=== PATIENT | male | born 1990 | race Caucasian/White ===

== ENCOUNTER 2022-10-12 03:27 | Emergency (ER) | payer OTHER, SELFPAY ==
[2022-10-12 03:32] VITALS: BP 158/104; PULSE 92; RESP 18; TEMP 36.6; O2SAT 96; BMI 31.0
--- NOTE | 2022-10-12 04:03 | ED.EXTPRO1 ---
HPI - Extremity Problem General Chief complaint: Extremity Problem, Nontraumatic Stated complaint: LEG PAIN Time Seen by Provider: 10/12/22 03:41 Source: patient and family Mode of arrival: walk-in Limitations: no limitations History of Present Illness HPI Narrative: This 32-year-old male presents for evaluation of bilateral lower extremity pain. The patient states for at least 4 weeks he has had pain in his posterior calf. He was seen by Dr. Guzman and had an EMG done last week and is scheduled for blood pressure tests in both legs next week. The patient states when his symptoms started he went to see Dr. Guzman and was put on Requip for restless leg syndrome. He states he had stopped taking it because it made him irritable in the morning. He states he does not feel that he has restless leg syndrome because he is able to keep his leg still but has squeezing pain in both posterior calves. He denies any chest pain or shortness of breath. He does state that he had a recent episode of chest pain while driving home from work yesterday. He does smoke cigarettes. He has not had any testosterone or home on replacement therapy. He states that as a child he had Weston-Schlatter's disease as well. He states he has had leg pain ongoing since the 7th grade. At this point he states he has not slept well in 4 weeks due to the discomfort in his legs and everything in his body hurts. Complaint: Reports extremity pain Onset (ago): week(s) (4) Pain Consistency: Reports constant Location: Reports lower extremity Quality: Reports other (squeezing) Radiation: Reports none Relieving factors: Reports nothing Exacerbating factors: Reports walking and rest Associated symptoms: Reports denies other symptoms Related Data Home Medications Medication Instructions Recorded Confirmed No Known Home Medications 10/12/22 10/12/22 Allergies Allergy/AdvReac Type Severity Reaction Status Date / Time naproxen Allergy Unknown Verified 10/12/22 03:36 Review of Systems ROS Status of ROS 10 or more systems reviewed and unremarkable except as noted in history and below PFSH PFS Social History Smoking status: Current every day smoker Exam Constitutional Vital Signs - 24 hr 10/12/22 03:32 Temperature 97.9 F Pulse Rate [Monitor] 92 H Respiratory Rate 18 Blood Pressure [Right Arm] 158/104 H Pulse Oximetry 96 Documenting provider has reviewed patient's vital signs: yes Common normals: no apparent distress (Nontoxic male resting currently on stretcher, no resp distress) and oriented x3 General appearance: cooperative, well kempt and well developed HENMT Common normals: normocephalic, head/scalp atraumatic and hearing grossly normal bilaterally Eye Common normals: PERRL General eye: normal appearance of both eyes Respiratory Common normals: normal respiratory effort, no retractions and clear to auscultation bilaterally Effort & inspection: able to speak in complete sentences Cardio Common normals: regular rate, regular rhythm, S1 normal heart sound, S2 normal heart sound and peripheral pulses 2+ throughout Back & Pelvis Common normals: thoracic and lumbar spine normal to inspection Extremity Common normals: normal to inspection, full ROM, normal capillary refill, no joint enlargement, no clubbing, cyanosis or edema and no calf tenderness (proximal calf tenderness in bilateral legs, No redness, cords ) General: other findings (Calfs are compared side by side and are soft, negative Homans sign) Neuro Common normals: oriented x3 Sensorium/orientation: awake, alert, oriented to person and oriented to place Psych Common normals: mental status grossly normal Course Course Hospital Course: EKG interpretation sinus rhythm at 70 beats for minute, normal axis, normal intervals, RSR in lead V1 and V2, no acute ST segment elevation or T-wave inversion Pt was medicated with 1 norco and 4mg zofran for his pain, blood work including D dimer ordered. Labs are reviewed and are normal. He has a negative d dimer and sed rate He was re-evaluated and states he is able to rest but the norco did not help his pain. I agreed to give him a short course of percocet after reviewing his OARRS report which showedRx for 25, 50mg tramadol on 05/10/22 and no other narcotic Rx Vital Signs Vital signs: Vital Signs Temperature 97.9 F 10/12/22 03:32 Pulse Rate 92 H 10/12/22 03:32 Respiratory Rate 18 10/12/22 03:32 Blood Pressure 158/104 H 10/12/22 03:32 Pulse Oximetry 96 10/12/22 03:32 Temperature 97.9 F 10/12/22 03:32 Pulse Rate 92 H 10/12/22 03:32 Respiratory Rate 18 10/12/22 03:32 Blood Pressure 158/104 H 10/12/22 03:32 Pulse Oximetry 96 10/12/22 03:32 MDM - Extremity (Nontraumatic) Differential Diagnosis Differential diagnosis: Likely deep vein thrombosis of lower extremity Lab Data Attestation: I reviewed the patient's lab results. Labs: Lab Results 10/12/22 10/12/22 Range/Units 04:01 05:15 WBC 6.5 (4.0-11.0) 10^3/uL RBC 4.47 L (4.70-6.10) 10^6/uL Hgb 14.0 (14.0-18.0) g/dL Hct 41.4 L (42.0-54.0) % MCV 92.6 (80.0-94.0) fL MCH 31.3 (25.9-34.0) pg MCHC 33.8 (29.9-35.2) g/dL RDW 11.9 (11.0-15.0) % Plt Count 236 (150-450) 10^3/uL MPV 10.2 (9.5-13.5) fL Neut % (Auto) 56.5 (43.0-75.0) % Lymph % (Auto) 33.1 (20.5-60.0) % [place] % (Auto) 7.4 (1.7-12.0) % Eos % (Auto) 1.9 (0.9-7.0) % Baso % (Auto) 0.8 (0.2-2.0) % Neut # (Auto) 3.7 (1.4-6.5) 10^3/uL Lymph # (Auto) 2.1 (1.2-3.8) 10^3/uL [place] # (Auto) 0.5 (0.3-0.8) 10^3/uL Eos # (Auto) 0.1 (0.0-0.7) 10^3/uL Baso # (Auto) 0.1 (0.0-0.1) 10^3/uL Abs Immat Gran (auto) 0.02 (0.00-0.03) 10^3/uL Imm/Tot Granulo (auto) 0.3 (0.0-0.5) % ESR 4 (<=15) mm/hr D-Dimer <0.19 (<=0.59) mg/L FEU Sodium 140 (136-145) mmol/L Potassium 3.9 (3.5-5.1) mmol/L Chloride 101 (98-107) mmol/L Carbon Dioxide 30.6 (21.0-32.0) mmol/L Anion Gap 12.3 BUN 13.0 (7.0-18.0) mg/dL Creatinine 1.09 (0.70-1.30) mg/dL Est GFR ( Amer) >60 (>=60) Est GFR (Non-Af Amer) >60 (>=60) BUN/Creatinine Ratio 11.9 Glucose 106 (74-106) mg/dL Calcium 10.9 H (8.5-10.1) mg/dL Discharge Plan Discharge Chief Complaint: Extremity Problem, Nontraumatic Clinical Impression: Chronic pain of lower extremity, bilateral Time of Disposition Decision: 06:26 Prescriptions / Home Meds: No Action No Known Home Medications Print Language: Greek Instructions: Chronic Pain (ED) Stand Alone Forms: Portal Instructions Referrals: Jc Guzman MD [Primary Care Provider] - 1 week
--- NOTE | 2022-10-12 04:06 | ECG_ITS ---
[facility] Test Date: 2022-10-12 Pat Name: OLEGARIO DONALD Department: Room: - Gender: Male Cloth Calender: : 1990 Requested By: LATRICIA GARCIA Order Number: [id number] Reading MD: LATRICIA GARCIA Measurements Intervals [place] Rate: 71 P: 60 RI: 164 QRS: 81 QRSD: 102 T: 62 QT: 368 QTc: 390 Interpretive Statements 1100 Sinus rhythm 2420 RSR (QR) in lead V1/V2, consistent with right ventricular conduction delay 9130 borderline ECG No previous ECG available for comparison Electronically Signed On 10-12-2022 6:54:22 EDT by LATRICIA GARCIA
[2022-10-12] MEDS: HYDROCODONE/ACETAMINOPHEN 5-325 MG TABLET 1 TAB PO (04:24)
[2022-10-12] MEDS: ONDANSETRON 4 MG RAPDIS TABLET SL (04:24)
[2022-10-12 05:36] LABS: Basophils Absolute Auto 0.1 10^3/uL (0.0-0.1); Basophils Percent Auto 0.8 % (0.2-2.0); Eosinophils Absolute Auto 0.1 10^3/uL (0.0-0.7); Eosinophils Percent Auto 1.9 % (0.9-7.0); Hematocrit 41.4 % (42.0-54.0); Immature Granulocytes Abs Auto 0.02 10^3/uL (0.00-0.03); Immature Granulocytes Pct Auto 0.3 % (0.0-0.5); Lymphocytes Absolute Auto 2.1 10^3/uL (1.2-3.8); Lymphocytes Percent Auto 33.1 % (20.5-60.0); Mean Corpuscular HGB Conc 33.8 g/dL (29.9-35.2); Mean Corpuscular Hemoglobin 31.3 pg (25.9-34.0); Mean Corpuscular Volume 92.6 fL (80.0-94.0); Mean Platelet Volume 10.2 fL (9.5-13.5); Monocytes Absolute Auto 0.5 10^3/uL (0.3-0.8); Monocytes Percent Auto 7.4 % (1.7-12.0); Neutrophils Absolute Auto 3.7 10^3/uL (1.4-6.5); Neutrophils Percent Auto 56.5 % (43.0-75.0); Platelet Count 236 10^3/uL (150-450); Red Blood Count 4.47 10^6/uL (4.70-6.10); Red Cell Distribution Width 11.9 % (11.0-15.0); White Blood Count 6.5 10^3/uL (4.0-11.0)
[2022-10-12 05:45] LABS: Erythrocyte Sedimentation Rate 4 mm/hr (<=15)
[2022-10-12 05:58] LABS: D Dimer <0.19 mg/L FEU (<=0.59)
[2022-10-12 06:02] LABS: Anion Gap 12.3; BUN Creatinine Ratio 11.9; Calcium 10.9 mg/dL (8.5-10.1); Carbon Dioxide 30.6 mmol/L (21.0-32.0); Chloride 101 mmol/L (98-107); Estimated GFR (African America >60 (>=60); Estimated GFR (Non-African Ame >60 (>=60); Glucose 106 mg/dL (74-106); Potassium 3.9 mmol/L (3.5-5.1); Sodium 140 mmol/L (136-145)
[2022-10-12 06:05] LABS: Troponin I High Sensitivity 4.9 pg/mL (4.0-76.1)
== END 2022-10-12 06:39 | disposition home or self-care (01) ==
PROVIDERS: Emergency Provider Emergency Medicine; PCP Family Medicine
DX: M79.605 Pain in left leg (principal); M79.604 Pain in right leg; G89.29 Other chronic pain; F17.210 Nicotine dependence, cigarettes, uncomplicated
CPT/HCPCS: 36415; 80048; 84484; 85025; 85378; 85652; 93005; 99284

== ENCOUNTER 2022-10-17 10:17 | Outpatient (OUT) | payer OTHER, SELFPAY ==
--- NOTE | 2022-10-17 | VEIN_ITS ---
Patient: OLEGARIO DONALD Exam Date: 10/17/2022 : 1990 Gender:M Ordering : DR Jc Guzman . Admission #: [id number] Family : Order #: [id number] CLICK HERE TO VIEW EXAM RADIOLOGY REPORT PROCEDURE: VC EXT VENOUS REFLUX APOORVA LMTD COMPARISON: None. INDICATIONS: Pain due to varicose veins of bilateral legs I83.813 TECHNIQUE: Duplex imaging of the lower extremity to assess the deep and superficial venous system for the presence of deep or superficial venous incompetence and to document the location and severity of disease. The study includes evaluation of the great saphenous vein (GSV), anterior accessory saphenous vein (AASV) and small saphenous vein (SSV). Patient scanned in reverse Trendelenburg and standing. FINDINGS: RIGHT LOWER EXTREMITY: Saphenofemoral Junction Reflux: Yes 9.2mm 0.5 sec GSV: Diam (mm) Reflux/ Time (sec) Proximal Thigh 6.4 Yes 0.4 Mid Thigh 2.6 Yes 0.3 Distal Thigh 3.3 No Prox Calf 2.3 Yes 0.5 Mid Calf 3.2 Yes 0.4 Saphenopopliteal Junction Reflux: 4.1mm Yes 0.2 SSV: Proximal Calf 4.0 No Mid Calf 3.9 Yes 2.4 AASV: Proximal Thigh 3.5 No Mid Thigh 2.2 No Distal Thigh Thrombi: No acute or chronic thrombus. Compressibility: Normal. Flow: Mild deep venous reflux. Preforator: Dist medial lower leg 2.8 mm with 4.8s reflux. Mid post calf 2.4 mm with 2.5s reflux. Tech Note: Patent varicose vein medial knee measures 1.9 mm without reflux. LEFT LOWER EXTREMITY: Saphenofemoral Junction Reflux: 7.0 mm 0.6 sec GSV: Diam (mm) Reflux/Time (sec) Proximal Thigh 4.2 No Mid Thigh 2.3 Yes 0.5 Distal Thigh 2.2 Yes 0.3 Prox Calf 4.8 No Mid Calf 3.3 Yes 0.2 Saphenopopliteal Junction Relux: 2.9 mm Yes 0.8 SSV: Proximal Calf 3.8 Yes 0.3 Mid Calf 3.5 Yes 0.6 AASV: Proximal Thigh 4.9 No Mid Thigh 2.7 Yes 0.5 Distal Thigh Thrombi: No acute or chronic thrombus. Compressibility: Normal. Flow: Mild deep venous reflux. Travel [place]: Dist medial lower leg 2.5 mm without reflux. Mid medial lower leg 2.8 mm with 2.4s reflux. Tech Note: Incompetent varicose vein distal medial lower leg measures 3.4 mm with 0.2s reflux. Mid medial lower leg varicosity measures 2.7 mm with 0.2s reflux. CONCLUSION: 1. Minimal bilateral great saphenous vein venous insufficiency without significant dilatation 2. Moderate right small saphenous vein and minimal left small saphenous vein venous insufficiency 3. Minimal left leg incompetent varicose veins Dictated by: Fei Latham MD on 10/17/2022 at 11:57 Approved by: Fei Latham MD on 10/17/2022 at 11:58
== END 2022-10-17 10:18 ==
PROVIDERS: PCP Family Medicine; Visit Provider Family Medicine
DX: R60.0 Localized edema (principal)
CPT/HCPCS: 93970

== ENCOUNTER 2022-10-19 11:28 | Outpatient (OUT) | payer OTHER, SELFPAY ==
[2022-10-19 11:52] LABS: Basophils Absolute Auto 0.1 10^3/uL (0.0-0.1); Basophils Percent Auto 0.8 % (0.2-2.0); Eosinophils Absolute Auto 0.1 10^3/uL (0.0-0.7); Eosinophils Percent Auto 1.9 % (0.9-7.0); Hematocrit 47.2 % (42.0-54.0); Immature Granulocytes Abs Auto 0.02 10^3/uL (0.00-0.03); Immature Granulocytes Pct Auto 0.3 % (0.0-0.5); Lymphocytes Absolute Auto 1.6 10^3/uL (1.2-3.8); Lymphocytes Percent Auto 21.4 % (20.5-60.0); Mean Corpuscular HGB Conc 33.9 g/dL (29.9-35.2); Mean Corpuscular Hemoglobin 31.3 pg (25.9-34.0); Mean Corpuscular Volume 92.2 fL (80.0-94.0); Mean Platelet Volume 10.1 fL (9.5-13.5); Monocytes Absolute Auto 0.5 10^3/uL (0.3-0.8); Monocytes Percent Auto 7.2 % (1.7-12.0); Neutrophils Percent Auto 68.4 % (43.0-75.0); Platelet Count 260 10^3/uL (150-450); Red Blood Count 5.12 10^6/uL (4.70-6.10); Red Cell Distribution Width 12.4 % (11.0-15.0); White Blood Count 7.3 10^3/uL (4.0-11.0)
[2022-10-19 12:28] LABS: Erythrocyte Sedimentation Rate 11 mm/hr (<=15)
[2022-10-19 13:16] LABS: Alanine Aminotransferase 31 U/L (16-63); Albumin Globulin Ratio 1.1; Alkaline Phosphatase 81 U/L (46-116); Anion Gap 11.1; Aspartate Amino Transferase 13 U/L (15-37); BUN Creatinine Ratio 9.2; Bilirubin Total 0.4 mg/dL (0.2-1.0); Calcium 9.5 mg/dL (8.5-10.1); Carbon Dioxide 28.1 mmol/L (21.0-32.0); Chloride 103 mmol/L (98-107); Estimated GFR (African America >60 (>=60); Estimated GFR (Non-African Ame >60 (>=60); Globulin 3.6 g/dL; Glucose 94 mg/dL (74-106); Potassium 4.2 mmol/L (3.5-5.1); Sodium 138 mmol/L (136-145); Total Protein 7.6 g/dL (6.4-8.2)
[2022-10-19 13:24] LABS: C Reactive Protein <0.2 mg/dL (<=1.0)
[2022-10-20 06:08] LABS: Antistreptolysin O Ab <20.0 IU/mL (0.0-200.0); Rheumatoid Factor (RF) <10.0 IU/mL (<14.0)
[2022-10-21 07:13] LABS: Antinuclear Antibodies, IFA Negative (.)
== END 2022-10-19 11:29 ==
LOC: LAB 11:30
PROVIDERS: PCP Family Medicine; Visit Provider Family Medicine
DX: I87.2 Venous insufficiency (chronic) (peripheral) (principal); M79.606 Pain in leg, unspecified
CPT/HCPCS: 36415; 80053; 84550; 85025; 85652; 86038; 86060; 86140; 86430

== ENCOUNTER 2022-10-21 14:13 | Outpatient (OUT) | payer OTHER, SELFPAY ==
--- NOTE | 2022-10-21 14:14 | US_ITS ---
[place] [id number] Patient Name: OLEGARIO DONALD MRN: [id number] date: 1990 Sex: M Assigned Patient Location: US Current Patient Location: US Accession/Order Number: [id number] Exam Date: 10/21/2022 14:45 Report Date: 10/23/2022 07:45 At the request of: LATRICIA GARCIA Procedure: US arterial duplex LE BI EXAMINATION: US arterial duplex LE BI HISTORY: Venous insufficiency I87.2, Leg pain M79.806 COMPARISON: No relevant comparison available. TECHNIQUE: Color duplex Doppler ultrasound evaluation analysis was performed in the usual manner. FINDINGS: RIGHT LOWER EXTREMITY ARTERIAL No atherosclerosis External Iliac PSV: 111.9 cm/s External Iliac EDV: 2.8 cm/s Common Femoral PSV: 77.9 cm/s Common Femoral EDV: 4.4 cm/s Superficial Femoral Proximal PSV: 80.1 cm/s Proximal EDV: 7.9 cm/s Mid PSV: 78.8 cm/s Mid EDV: 6.6 cm/s Distal PSV: 56.8 cm/s Distal EDV: 5.3 cm/s Popliteal Proximal PSV: 71.0 cm/s Popliteal Proximal EDV: 4.0 cm/s Posterior Tibial Proximal PSV: 72.4 cm/s Proximal EDV: 0.0 cm/s Mid PSV: 54.9 cm/s Mid EDV: 0.0 cm/s Distal PSV: 72.3 cm/s Distal EDV: 5.3 cm/s Anterior Tibial Proximal PSV: 52.6 cm/s Proximal EDV: 4.5 cm/s Mid PSV: 50.4 cm/s Mid EDV: 3.4 cm/s Distal PSV: 53.7 cm/s Distal EDV: 6.7 cm/s LEFT LOWER EXTREMITY ARTERIAL No atherosclerosis External Iliac PSV: 98.4 cm/s External Iliac EDV: 8.1 cm/s Common Femoral PSV: 88.5 cm/s Common Femoral EDV: 0.0 cm/s Superficial Femoral Proximal PSV: 89.2 cm/s Proximal EDV: 0.0 cm/s Mid PSV: 66.1 cm/s Mid EDV: 0.0 cm/s Distal PSV: 62.8 cm/s Distal EDV: 0.0 cm/s Popliteal Proximal PSV: Popliteal Proximal EDV: Posterior Tibial Proximal PSV: 86.7 cm/s Proximal EDV: 4.3 cm/s Mid PSV: 60.3 cm/s Mid EDV: 0.0 cm/s Distal PSV: 70.2 cm/s Distal EDV: Anterior Tibial Proximal PSV: 62.5 cm/s Proximal EDV: 0.0 cm/s Mid PSV: 54.8 cm/s Mid EDV: 0.0 cm/s Distal PSV: 41.6 cm/s Distal EDV: 0.0 cm/s IMPRESSION: Normal exam Electronically authenticated by: RAMO BLAKE Date: 10/23/2022 07:45
== END 2022-10-21 14:14 | disposition home or self-care (01) ==
PROVIDERS: PCP Family Medicine; Visit Provider Family Medicine
DX: I87.2 Venous insufficiency (chronic) (peripheral) (principal); M79.606 Pain in leg, unspecified
CPT/HCPCS: 93925

== ENCOUNTER 2023-01-03 12:30 | Emergency (ER) | payer OTHER, SELFPAY ==
[2023-01-03 12:41] VITALS: BP 132/87; PULSE 77; RESP 18; TEMP 36.7; O2SAT 99; BMI 32.1
--- NOTE | 2023-01-03 13:10 | PC.NURSE ---
chronic right knee issues, pt reports having to pop right kneeback in place and is still having alot of pain with this. Pt also reports loosing balance and falling into right side rib area and ano has pain in this area
--- NOTE | 2023-01-03 13:40 | XR_ITS ---
The [address] [address] Patient Name: OLEGARIO DONALD MRN: [id number] date: 1990 Sex: M Assigned Patient Location: ER Current Patient Location: ER Accession/Order Number: [id number] Exam Date: 01/03/2023 14:00 Report Date: 01/03/2023 14:24 At the request of: OZ MOSQUEDA Procedure: XR ribs RT min 3V w CXR1V EXAMINATION: XR ribs RT min 3V w CXR1V 01/03/2023 11:22 AM PDT HISTORY: Cough, fall on right ribs COMPARISONS: None. FINDINGS: Lines and tubes: None. Heart and mediastinum: The heart and the mediastinum are normal for technique. Lungs and pleura: The lungs are clear. There is no evidence of pneumonia or pulmonary edema. There is no pleural effusion or pneumothorax. Bones: No acute osseous abnormality. RIGHT RIBS: No displaced rib fracture. XR/XR ribs RT min 3V w CXR1V IMPRESSION: 1. No acute cardiopulmonary abnormality 2. No displaced rib fracture on the right. Electronically authenticated by: CATHIE CATES Date: 01/03/2023 14:24
--- NOTE | 2023-01-03 13:40 | XR_ITS ---
The [address] [address] Patient Name: OLEGARIO DONALD MRN: [id number] date: 1990 Sex: M Assigned Patient Location: ER Current Patient Location: ER Accession/Order Number: [id number] Exam Date: 01/03/2023 14:00 Report Date: 01/03/2023 14:25 At the request of: OZ MOSQUEDA Procedure: XR knee RT 3V EXAM: XR knee RT 3V HISTORY: Right knee pain after falling down. COMPARISON: 11/12/2016 TECHNIQUE: 4 views of the right knee were obtained. FINDINGS: There is no evidence of an acute fracture or dislocation. Calcification or remote bony fragmentation is seen at the anterior tibial tuberosity. The joint spaces are intact. There is no osteochondral injury. There is minimal lateral subluxation of the patella at the patellofemoral joint. A small suprapatellar joint effusion is suggested and may be present. XR/XR knee RT 3V IMPRESSION: No acute fracture or dislocation. Tendon calcifications or bone fragmentation at the anterior tibial tuberosity is noted suggesting an old injury. No osteochondral injury is identified. A small suprapatellar joint effusion is suggested and may be present. Electronically authenticated by: FAUSTINO CROWLEY Date: 01/03/2023 14:25
--- NOTE | 2023-01-03 13:43 | ED_ITS ---
HPI - URI/Sore Throat General Chief Complaint: Upper Respiratory Infection Stated Complaint: NAUSEA/COLD CHILLS/HOT FLASHES Time Seen by Provider: 01/03/23 13:35 Source: patient History of Present Illness HPI Narrative: patient is a 32-year-old male who presents to the emergency department with request for evaluation of multiple complaints. Patient states for the last four days he has had hot and cold chills with no objective fevers. He reports cough and congestion with no sputum production. He reports diarrhea and nausea. He has had dry heaving. No significant abdominal pain. No sick contacts in the home. He states that he also would like his right knee evaluated as he has a history of chronic right knee issues, last week his right knee gave out causing him to fall from a standing position onto the arm of his recliner striking the right side of his ribs. He complains of right rib pain, right knee pain as well as his flulike symptoms. No medications taken prior to arrival. Marek arrives to the emergency department with completely normal vital signs. Related Data Home Medications Medication Instructions Recorded Confirmed gabapentin 300 mg capsule 300 mg PO BID 01/03/23 01/03/23 Previous Rx's Medication Instructions Recorded jblyjlsugiuryve-zenycaxoygouqdy-AE 10 ml PO Q6H PRN cold symptoms 01/03/23 2 mg-30 mg-10 mg/5 mL oral syrup #200 mL (Bromfed DM) methocarbamol 750 mg tablet 750 mg PO TID PRN pain #20 tabs 01/03/23 methylprednisolone 4 mg tablets in See Rx Instructions .Route 01/03/23 a dose pack (Medrol (Ceferino)) .COMPLEX #21 ea ondansetron 4 mg disintegrating 4 mg PO Q6H PRN nausea and 01/03/23 tablet vomiting #12 tabs Allergies Allergy/AdvReac Type Severity Reaction Status Date / Time naproxen Allergy Unknown Verified 10/12/22 03:36 Review of Systems ROS Constitutional Reports: chills; Denies: fever Ears, nose, mouth, and throat Reports: nasal congestion; Denies: throat pain Cardiovascular Reports: chest pain Respiratory Reports: cough Gastrointestinal Reports: nausea, vomiting and diarrhea; Denies: abdominal pain Genitourinary Denies: painful urination Musculoskeletal Reports: extremity pain; Denies: back pain or neck pain Integumentary/Breast Denies: rash Neurological Denies: headache Endocrine Denies: excessive urination Hematologic/Lymphatic Denies: easy bruising PFSH PFSH Social History Smoking status: Current every day smoker Exam Narrative Exam Narrative: Gen.: Awake, alert, in no distress Head: Normocephalic, atraumatic ENT: Moist mucous membranes Respiratory: No respiratory distress, lungs clear bilaterally;no wheezing or rhonchi, diffusely tender to palpation of the right posterior and lateral chest wall. No ecchymosis or crepitance noted. No flail chest. Cardio: Regular rate and rhythm Gastrointestinal: Abdomen is soft, nondistended Extremities: Moves extremities equally, right knee with no edema, obvious deformity or joint effusion noted. Psych: Normal mood and affect Neuro: No focal neuro deficit Skin: Warm, dry, intact Constitutional Vital Signs, click to edit/add: Last Vital Signs Temp 98.1 F 01/03/23 12:41 Pulse 77 01/03/23 12:41 Resp 18 01/03/23 12:41 BP 132/87 01/03/23 12:41 Pulse Ox 99 01/03/23 12:41 O2 Del Method Room Air 01/03/23 13:09 Course Vital Signs Vital signs: Vital Signs Temperature 98.1 F 01/03/23 12:41 Pulse Rate 77 01/03/23 12:41 Respiratory Rate 18 01/03/23 12:41 Blood Pressure 132/87 01/03/23 12:41 Pulse Oximetry 99 01/03/23 12:41 Oxygen Delivery Method Room Air 01/03/23 12:41 Temperature 98.1 F 01/03/23 12:41 Pulse Rate 77 01/03/23 12:41 Respiratory Rate 18 01/03/23 12:41 Blood Pressure 132/87 01/03/23 12:41 Pulse Oximetry 99 01/03/23 12:41 Oxygen Delivery Method Room Air 01/03/23 13:09 MDM - URI/Sore Throat MDM Narrative Medical decision making narrative: patient had an episode of emesis after my evaluation, he was given oral Zofran as well as Norflex and Percocet. Images of his chest and ribs are unremarkable and images of the right knee are also unremarkable per the radiologist. Patient's history and physical are consistent with flulike illness, he requested a Covid test and this was obtained. His vital signs are within normal limits in the Emergency Room and abdomen is soft and benign. Covid test is negative. Patient will be discharged home with prescriptions for Bromfed-DM, Zofran, muscle relaxants and NSAIDs. Follow-up with PCP and return to the Emergency Room if symptoms change or worsen. He was given an orthopedic referral for his chronic right knee pain. Marco A wrap applied and tthe patient remains neurovascularly intact. Rest, ice, elevate. Medical Records Attestation: I reviewed the patient's medical records. Lab Data Attestation: I reviewed the patient's lab results. Labs: Lab Results 01/03/23 Range/Units 14:29 SARS-CoV-2 (PCR) Negative (NEGATIVE) Imaging Data Chest x-ray: Attestation: I have reviewed the pertinent imaging results. Radiologist's impression: Procedure: XR ribs RT min 3V w CXR1V EXAMINATION: XR ribs RT min 3V w CXR1V 01/03/2023 11:22 AM PDT HISTORY: Cough, fall on right ribs COMPARISONS: None. FINDINGS: Lines and tubes: None. Heart and mediastinum: The heart and the mediastinum are normal for technique. Lungs and pleura: The lungs are clear. There is no evidence of pneumonia or pulmonary edema. There is no pleural effusion or pneumothorax. Bones: No acute osseous abnormality. RIGHT RIBS: No displaced rib fracture. IMPRESSION: 1. No acute cardiopulmonary abnormality 2. No displaced rib fracture on the right. Electronically authenticated by: CATHIE CATES Date: 01/03/2023 14:24 XR knee: Attestation: I have reviewed the pertinent imaging results. Radiologist's impression: Procedure: XR knee RT 3V EXAM: XR knee RT 3V HISTORY: Right knee pain after falling down. COMPARISON: 11/12/2016 TECHNIQUE: 4 views of the right knee were obtained. FINDINGS: There is no evidence of an acute fracture or dislocation. Calcification or remote bony fragmentation is seen at the anterior tibial tuberosity. The joint spaces are intact. There is no osteochondral injury. There is minimal lateral subluxation of the patella at the patellofemoral joint. A small suprapatellar joint effusion is suggested and may be present. IMPRESSION: No acute fracture or dislocation. Tendon calcifications or bone fragmentation at the anterior tibial tuberosity is noted suggesting an old injury. No osteochondral injury is identified. A small suprapatellar joint effusion is suggested and may be present. Electronically authenticated by: FAUSTINO CROWLEY Date: 01/03/2023 14:25 Discharge Plan Discharge Chief Complaint: Upper Respiratory Infection Clinical Impression: Upper respiratory infection, Chronic pain of right knee, Contusion of right chest wall Patient Disposition: Home, Self-Care Time of Disposition Decision: 15:32 Condition: Good Prescriptions / Home Meds: New methocarbamol 750 mg tablet 750 mg PO TID PRN (Reason: pain) Qty: 20 0RF methylprednisolone [Medrol (Ceferino)] 4 mg tablets,dose pack See Rx Instructions .ROUTE .COMPLEX Qty: 21 0RF Rx Instructions: Taper as directed eabxjxvaviwftbn-xouhleihh-FB [Bromfed DM] 2-30-10 mg/5 mL syrup 10 ml PO Q6H PRN (Reason: cold symptoms) Qty: 200 0RF ondansetron 4 mg tablet,disintegrating 4 mg PO Q6H PRN (Reason: nausea and vomiting) Qty: 12 0RF No Action gabapentin 300 mg capsule 300 mg PO BID Instructions: Upper Respiratory Infection (ED), Knee Pain (ED), Rib Contusion (ED) Additional Instructions: Follow up with orthopedics, [facility] [phone] or [facility] [phone] Stand Alone Forms: Portal Instructions Referrals: Jc Guzman MD [Primary Care Provider] - 1 week
[2023-01-03] MEDS: ORPHENADRINE 60 MG/ 2 ML VIAL IM (13:48)
[2023-01-03] MEDS: ONDANSETRON 4 MG RAPDIS TABLET SL (13:48)
[2023-01-03 15:30] LABS: SARS-CoV-2 Ag NEGATIVE (NEGATIVE)
[2023-01-04 12:48] LABS: SARS-CoV-2 NAA NOT DETECTED (NOT DETECTE)
== END 2023-01-03 15:59 | disposition home or self-care (01) ==
PROVIDERS: Physician Assistant; Emergency Provider Emergency Medicine Emergency Medical Services; PCP Family Medicine
DX: J06.9 Acute upper respiratory infection, unspecified (principal); M25.561 Pain in right knee; S20.211A Contusion of right front wall of thorax, initial encounter; W18.39XA Other fall on same level, initial encounter; R11.2 Nausea with vomiting, unspecified; R19.7 Diarrhea, unspecified; F17.210 Nicotine dependence, cigarettes, uncomplicated; G89.29 Other chronic pain
CPT/HCPCS: 71101; 73562; 87635; 87811; 96372; 99285; U0003

== ENCOUNTER 2023-01-27 13:19 | Outpatient (OUT) | payer OTHER, SELFPAY ==
--- NOTE | 2023-01-27 13:31 | MR_ITS ---
The [place] [id number] Patient Name: OLEGARIO DONALD MRN: [id number] date: 1990 Sex: M Assigned Patient Location: MRI Current Patient Location: MRI Accession/Order Number: [id number] Exam Date: 01/27/2023 14:00 Report Date: 01/27/2023 15:39 At the request of: NON-STAFF PHYSICIAN Procedure: MR knee RT wo con EXAM: MR knee RT wo con REASON FOR EXAM: Right Knee Pain M25.561. TECHNIQUE: Multiplanar, multisequence imaging of the right knee was performed without contrast COMPARISON: Plain radiographs 01/03/2023. FINDINGS: Laterally, the iliotibial band, fibular collateral ligament, popliteus tendon and biceps tendon are intact. The ACL is intact. The lateral meniscus demonstrates normal morphology and signal without tear. The lateral articular cartilage is intact. Medially, the medial collateral ligament is intact. The PCL is intact. The medial meniscus demonstrates normal morphology and signal without tear. The medial articular cartilage demonstrates low-grade chondrosis. The extensor mechanism is intact. Thickening and intermediate signal involving the distal patellar tendon with associated enthesophytes is consistent with chronic Pinson-Schlatter's disease. No tear identified. The patellofemoral cartilage is intact. The bone marrow signal is without fracture. Trace joint effusion. The regional musculature is unremarkable. MR/MR knee RT wo con IMPRESSION: 1. No evidence of internal derangement. 2. Low-grade chondrosis of the medial compartment. 3. Chronic Pinson-Schlatter's disease. Electronically authenticated by: BEVERLY CASTRO Date: 01/27/2023 15:39
--- NOTE | 2023-01-27 13:44 | XR_ITS ---
The [address] [address] Patient Name: OLEGARIO DONALD MRN: [id number] date: 1990 Sex: M Assigned Patient Location: MRI Current Patient Location: MRI Accession/Order Number: [id number] Exam Date: 01/27/2023 13:50 Report Date: 01/27/2023 14:11 At the request of: NON-STAFF PHYSICIAN Procedure: XR foreign body eye EXAMINATION: XR foreign body eye HISTORY: Foreign Body Eye COMPARISON: No relevant comparison available. FINDINGS: ORBITS: Negative for a metallic foreign body. OTHER: Negative. XR/XR foreign body eye IMPRESSION: 1. No metallic foreign body within the orbits. Electronically authenticated by: SAUMYA AMRSH Date: 01/27/2023 14:11
== END 2023-01-27 13:20 | disposition home or self-care (01) ==
LOC: MRI 13:20
PROVIDERS: PCP Family Medicine
DX: M25.561 Pain in right knee (principal); S83.004A Unspecified dislocation of right patella, initial encounter
CPT/HCPCS: 70030; 73721

== ENCOUNTER 2023-02-17 14:48 | Outpatient (OUT) | payer OTHER, SELFPAY ==
--- NOTE | 2023-02-17 14:54 | XR_ITS ---
The [address] [address] Patient Name: OLEGARIO DONALD MRN: [id number] date: 1990 Sex: M Assigned Patient Location: RAD Current Patient Location: [facility] Accession/Order Number: [id number] Exam Date: 02/17/2023 15:00 Report Date: 02/17/2023 16:20 At the request of: LATRICIA GARCIA Procedure: XR knee RT 3V EXAM: XR knee RT 3V HISTORY: Knee Pain Right M25.561 . Knee injury 2 days ago. COMPARISON: 01/03/2023 TECHNIQUE: 3 views of the right knee were obtained. FINDINGS: There is no evidence of an acute fracture or dislocation. Soft tissue calcification or remote bony fragment is noted at the anterior tibial tuberosity, which is unchanged. No other abnormal soft tissue calcifications are present. A small joint effusion is present. XR/XR knee RT 3V IMPRESSION: No acute fracture or dislocation. Calcifications or remote fragments are seen along the anterior aspect of the proximal tibia, suggesting an old injury. A small suprapatellar joint effusion is present, and the overall appearance of the knee is essentially unchanged. Electronically authenticated by: FAUSTINO CROWLEY Date: 02/17/2023 16:20
== END 2023-02-17 14:49 | disposition home or self-care (01) ==
LOC: RAD 14:49
PROVIDERS: PCP Family Medicine; Visit Provider Family Medicine
DX: M25.561 Pain in right knee (principal); M25.461 Effusion, right knee
CPT/HCPCS: 73562

== ENCOUNTER 2023-03-26 12:37 | Emergency (ER) | payer OTHER, SELFPAY ==
[2023-03-26 12:43] VITALS: BP 142/87; PULSE 77; RESP 16; TEMP 37; O2SAT 98; BMI 32.5
--- NOTE | 2023-03-26 14:30 | XR_ITS ---
The [address] [address] Patient Name: OLEGARIO DONALD MRN: [id number] date: 1990 Sex: M Assigned Patient Location: ER Current Patient Location: ER Accession/Order Number: [id number] Exam Date: 03/26/2023 14:50 Report Date: 03/26/2023 15:45 At the request of: QUEENIE ESTRADA Procedure: XR abdomen 1V PROCEDURE: XR abdomen 1V, 03/26/2023 2:50 PM EST CLINICAL INDICATIONS: Right lower quadrant abdominal pain, nausea COMPARISON: None TECHNIQUE: Abdomen 1 view FINDINGS: Gas and stool is present within nondistended colon diffusely. The stomach and small bowel are nondistended. Pathologic calcification is not evident. Acute osseous pathology is not seen. Regional soft tissues normal. XR/XR abdomen 1V IMPRESSION: 1. Mild retained fecal content throughout nondistended colon 2. Nonobstructive bowel pattern Electronically authenticated by: EDIS HENDRICKS Date: 03/26/2023 15:45
--- NOTE | 2023-03-26 14:33 | ED.GENADUL1 ---
HPI - General Adult General Chief complaint: Nausea/Vomiting/Diarrhea Stated complaint: NAUSEA Time Seen by Provider: 03/26/23 13:57 Source: patient Mode of arrival: Wheelchair History of Present Illness HPI narrative: Patient is a 32-year-old male who is presenting to the Emergency Room with chief complaint nausea, vomiting, right lower back pain, flank pain, right lower quadrant discomfort. Patient is also here for wound reevaluation of his right knee and also evaluation of ecchymosis and swelling from his right knee into his right lower extremity. Patient is here with his father. Patient had surgery 2 weeks ago by the orthopedic surgeon in family. Patient at that time had a arthroscopic procedure to his right knee cleaning up Darell flynn extra bone growth, also other minor repairs to the right knee. Patient 2 days after surgery had an ecchymosis around the right knee, extending down his right leg. The ecchymosis has improved compared to 1.5 weeks ago. Patient wanted his right knee and right lower extremity double check, his appointment with his orthopedic surgeon on Monday, in 2 days. Sutures are still in place. Patient states that he just stopped taking pain medication yesterday. He is prescribed 40 Percocet and Toradol. Related Data Home Medications Medication Instructions Recorded Confirmed gabapentin 300 mg capsule 300 mg PO BID 01/03/23 01/03/23 Previous Rx's Medication Instructions Recorded akjqszyvnomkkoh-vlygsuydvmtzcgi-RC 10 ml PO Q6H PRN cold symptoms 01/03/23 2 mg-30 mg-10 mg/5 mL oral syrup #200 mL (Bromfed DM) methocarbamol 750 mg tablet 750 mg PO TID PRN pain #20 tabs 01/03/23 methylprednisolone 4 mg tablets in See Rx Instructions .Route 01/03/23 a dose pack (Medrol (Ceferino)) .COMPLEX #21 ea ondansetron 4 mg disintegrating 4 mg PO Q6H PRN nausea and 01/03/23 tablet vomiting #12 tabs ketorolac 10 mg tablet 10 mg PO Q8H PRN pain 1 day #10 03/26/23 tabs ondansetron 4 mg disintegrating 4 mg PO Q4H PRN nausea and 03/26/23 tablet vomiting 3 days #6 tabs Allergies Allergy/AdvReac Type Severity Reaction Status Date / Time naproxen Allergy Unknown Verified 10/12/22 03:36 Review of Systems ROS Narrative All systems are negative except as noted/marked. All systems reviewed and otherwise negative. [facility] Social History Smoking status: Current every day smoker Exam Narrative Exam Narrative: Nurses note and vital signs reviewed and patient is not hypoxic. General: The patient appears well and in no apparent distress. Patient is resting comfortably on cart. Patient is not toxic, lethargic, or listless Skin: Warm, dry, no pallor noted. There is no rash noted. No petechiae, purpura. Head: Normocephalic, atraumatic Eye: Normal conjunctiva, no drainage, EOMI. PERRL Ears, Nose, Mouth, and Throat: oral mucosa is moist. Nares patent. Mouth without vesicles. Cardiovascular: Regular Rate and Rhythm, no murmur, gallop, rub Respiratory: Patient is in no distress, no accessory muscle use, lungs are clear to auscultation, no wheezing, rales or rhonchi Back: Patient has mild Right lower lumbar tenderness to palpation, patient non-tender, no CVA tenderness bilaterally to percussion. No CT LS midline pain GI: soft, Mild midepigastric and right lower quadrant tenderness to palpation, bowel sounds ?4, mild flank tenderness to palpation to the right, no flank pain to palpation on the left, otherwiseno tenderness to palpation, no masses appreciated. No rebound, guarding, or rigidity noted. No flank pain bilateral, No distention Musculoskeletal: Patient has full range of motion of all of the extremities, no motor, sensory, or focal neurological deficits. Patient has no pain to palpation to the posterior aspect of his right thigh, popliteal fossa, or calf. Patient has expanding ecchymosis down to his ankle and foot. Patient has no palpable hematoma. No signs of compartment syndrome. Patient ecchymosis has improved since the last 10-12 days since it is started. Patient's scars to his right knee is clean, dry, intact, no drainage. Patient has mild to moderate pain with range of motion of right knee, the pain is improving and patient is currently in physical therapy. No signs of acute sepsis or acute infection to the right knee joint. Neurological: A&O x3, normal speech Psychiatric: Cooperative Constitutional Vital Signs, click to edit/add: Last Vital Signs Temp 98.6 F 03/26/23 12:43 Pulse 77 03/26/23 12:43 Resp 16 03/26/23 12:43 BP 142/87 H 03/26/23 12:43 Pulse Ox 98 03/26/23 12:43 O2 Del Method Room Air 03/26/23 15:00 Course Vital Signs Vital signs: Vital Signs Temperature 98.6 F 03/26/23 12:43 Pulse Rate 77 03/26/23 12:43 Respiratory Rate 16 03/26/23 12:43 Blood Pressure 142/87 H 03/26/23 12:43 Pulse Oximetry 98 03/26/23 12:43 Oxygen Delivery Method Room Air 03/26/23 12:43 Temperature 98.6 F 03/26/23 12:43 Pulse Rate 77 03/26/23 12:43 Respiratory Rate 16 03/26/23 12:43 Blood Pressure 142/87 H 03/26/23 12:43 Pulse Oximetry 98 03/26/23 12:43 Oxygen Delivery Method Room Air 03/26/23 15:00 Medical Decision Making [facility] Narrative Medical decision making narrative: 0810 Patient was reassessed. We discussed patient's x-ray finding, he is given a copy of his x-ray. Patient nausea has significant improvement. Patient is still having mild pain to right lower quadrant. Reexamination of abdomen at discharge shows mild midepigastric and right lower quadrant tenderness palpation, negative Rovsing sign, negative rebound, no guarding, no peritoneal signs. Patient's right lower back pain and right flank pain have improved. No suprapubic tenderness to palpation. Patient has minimal signs of suggest appendicitis. Ordering a CAT scan secondary to patient's mild midepigastric and right lower quadrant pain along with a white blood cell count of 12 was discussed with patient. Sure decision-making was done. Patient agrees sinus symptoms are minimal for appendicitis, he does not want have a CT of abdomen and pelvis at this time. Patient understands of intractable dental pain, nausea, vomiting, or any other acute concerns arise, to return back to the Emergency Room for reevaluation, relapse testing and CAT scan if needed. Patient will be sent home with prescription for Zofran. Patient feels better after IV fluids and Zofran. No questions at discharge. Patient has a nonsurgical abdomen at discharge. Lab Data Labs: Lab Results 03/26/23 03/26/23 Range/Units 14:42 15:50 WBC 12.0 H (4.0-11.0) 10^3/uL RBC 4.48 L (4.70-6.10) 10^6/uL Hgb 14.4 (14.0-18.0) g/dL Hct 42.8 (42.0-54.0) % MCV 95.5 H (80.0-94.0) fL MCH 32.1 (25.9-34.0) pg MCHC 33.6 (29.9-35.2) g/dL RDW 12.3 (11.0-15.0) % Plt Count 246 (150-450) 10^3/uL MPV 9.6 (9.5-13.5) fL Neut % (Auto) 77.9 H (43.0-75.0) % Lymph % (Auto) 15.3 L (20.5-60.0) % [place] % (Auto) 5.2 (1.7-12.0) % Eos % (Auto) 0.6 L (0.9-7.0) % Baso % (Auto) 0.5 (0.2-2.0) % Neut # (Auto) 9.3 H (1.4-6.5) 10^3/uL Lymph # (Auto) 1.8 (1.2-3.8) 10^3/uL [place] # (Auto) 0.6 (0.3-0.8) 10^3/uL Eos # (Auto) 0.1 (0.0-0.7) 10^3/uL Baso # (Auto) 0.1 (0.0-0.1) 10^3/uL Abs Immat Gran (auto) 0.06 H (0.00-0.03) 10^3/uL Imm/Tot Granulo (auto) 0.5 (0.0-0.5) % Sodium 136 (136-145) mmol/L Potassium 4.3 (3.5-5.1) mmol/L Chloride 100 (98-107) mmol/L Carbon Dioxide 28.7 (21.0-32.0) mmol/L Anion Gap 11.6 BUN 19.0 H (7.0-18.0) mg/dL Creatinine 1.11 (0.70-1.30) mg/dL Est GFR ( Amer) >60 (>=60) Est GFR (Non-Af Amer) >60 (>=60) BUN/Creatinine Ratio 17.1 Glucose 88 (74-106) mg/dL Calcium 9.2 (8.5-10.1) mg/dL Total Bilirubin 0.7 (0.2-1.0) mg/dL AST 15 (15-37) U/L ALT 32 (16-63) U/L Alkaline Phosphatase 69 (46-116) U/L Total Protein 7.6 (6.4-8.2) g/dL Albumin 4.0 (3.4-5.0) g/dL Globulin 3.6 g/dL Albumin/Globulin Ratio 1.1 Lipase 27.0 (16.0-77.0) U/L Urine Color Yellow (YELLOW) Urine Clarity Clear (CLEAR) Urine pH 6.0 (5.0-9.0) Ur Specific [place] 1.025 (1.005-1.025) Urine Protein Negative (NEG/TRACE) mg/dL Urine Glucose (UA) Negative (NEGATIVE) mg/dL Urine Ketones Negative (NEGATIVE) mg/dL Urine Occult Blood Negative (NEGATIVE) Urine Nitrite Negative (NEGATIVE) Urine Bilirubin Negative (NEGATIVE) Urine Urobilinogen 0.2 (0.2-1.0) EU/dL Ur Leukocyte Esterase Negative (NEGATIVE) Urine RBC 0-2 (0-2) #/HPF Urine WBC 0-2 A (NONE SEEN) #/HPF Ur Squamous Epith Cells Rare (NONE/RARE) #/LPF Urine Crystals None seen (None Seen) #/HPF Urine Bacteria None seen (NONE SEEN) #/HPF Urine Casts None seen (NONE SEEN) #/LPF Urine Mucus Trace A (NONE SEEN) Discharge Plan Discharge Chief Complaint: Nausea/Vomiting/Diarrhea Clinical Impression: Dehydration, mild, Nausea & vomiting, Abdominal pain Patient Disposition: Home, Self-Care Time of Disposition Decision: 17:34 Condition: Good Mode of Transportation: Private Vehicle Prescriptions / Home Meds: New ondansetron 4 mg tablet,disintegrating 4 mg PO Q4H PRN (Reason: nausea and vomiting) 3 Days Qty: 6 0RF ketorolac 10 mg tablet 10 mg PO Q8H PRN (Reason: pain) 1 Days Qty: 10 0RF No Action gabapentin 300 mg capsule 300 mg PO BID methocarbamol 750 mg tablet 750 mg PO TID PRN (Reason: pain) Qty: 20 0RF methylprednisolone [Medrol (Ceferino)] 4 mg tablets,dose pack See Rx Instructions .ROUTE .COMPLEX Qty: 21 0RF Rx Instructions: Taper as directed vurgwudkxcthikm-qitlnqpya-XD [Bromfed DM] 2-30-10 mg/5 mL syrup 10 ml PO Q6H PRN (Reason: cold symptoms) Qty: 200 0RF ondansetron 4 mg tablet,disintegrating 4 mg PO Q6H PRN (Reason: nausea and vomiting) Qty: 12 0RF Additional Instructions: Increase fluids. Use Zofran as needed for nausea and vomiting. If you have intractable dental pain, nausea, vomiting, or any other acute concerns, please return the Emergency Room for reevaluation. Follow-up with your PCP or urologist as needed. See her orthopedic surgeon on Monday as scheduled. Stand Alone Forms: Portal Instructions Referrals: Jc Guzman MD [Primary Care Provider] - 1 week Discharge Date/Time: 03/26/23 17:34
[2023-03-26] MEDS: 0.9 % SODIUM CHLORIDE 1,000 ML 999 ML IV (14:54)
[2023-03-26] MEDS: KETOROLAC TROMETHAMINE 30 MG/ML VIAL 15 MG IVP (14:54)
[2023-03-26] MEDS: ONDANSETRON PF 4 MG/2 ML VIAL IV (14:54)
[2023-03-26 15:01] LABS: Basophils Absolute Auto 0.1 10^3/uL (0.0-0.1); Basophils Percent Auto 0.5 % (0.2-2.0); Eosinophils Absolute Auto 0.1 10^3/uL (0.0-0.7); Eosinophils Percent Auto 0.6 % (0.9-7.0); Hematocrit 42.8 % (42.0-54.0); Hemoglobin 14.4 g/dL (14.0-18.0); Immature Granulocytes Abs Auto 0.06 10^3/uL (0.00-0.03); Immature Granulocytes Pct Auto 0.5 % (0.0-0.5); Lymphocytes Absolute Auto 1.8 10^3/uL (1.2-3.8); Lymphocytes Percent Auto 15.3 % (20.5-60.0); Mean Corpuscular HGB Conc 33.6 g/dL (29.9-35.2); Mean Corpuscular Hemoglobin 32.1 pg (25.9-34.0); Mean Corpuscular Volume 95.5 fL (80.0-94.0); Mean Platelet Volume 9.6 fL (9.5-13.5); Monocytes Absolute Auto 0.6 10^3/uL (0.3-0.8); Monocytes Percent Auto 5.2 % (1.7-12.0); Neutrophils Absolute Auto 9.3 10^3/uL (1.4-6.5); Neutrophils Percent Auto 77.9 % (43.0-75.0); Platelet Count 246 10^3/uL (150-450); Red Blood Count 4.48 10^6/uL (4.70-6.10); Red Cell Distribution Width 12.3 % (11.0-15.0)
[2023-03-26 15:21] LABS: Alanine Aminotransferase 32 U/L (16-63); Albumin Globulin Ratio 1.1; Alkaline Phosphatase 69 U/L (46-116); Anion Gap 11.6; Aspartate Amino Transferase 15 U/L (15-37); BUN Creatinine Ratio 17.1; Bilirubin Total 0.7 mg/dL (0.2-1.0); Calcium 9.2 mg/dL (8.5-10.1); Carbon Dioxide 28.7 mmol/L (21.0-32.0); Chloride 100 mmol/L (98-107); Estimated GFR (African America >60 (>=60); Estimated GFR (Non-African Ame >60 (>=60); Globulin 3.6 g/dL; Glucose 88 mg/dL (74-106); Potassium 4.3 mmol/L (3.5-5.1); Sodium 136 mmol/L (136-145); Total Protein 7.6 g/dL (6.4-8.2)
[2023-03-26 15:55] LABS: Bilirubin Urine NEGATIVE (NEGATIVE); Blood Urine NEGATIVE (NEGATIVE); Clarity Urine CLEAR (CLEAR); Color Urine YELLOW (YELLOW); Glucose Urine UA NEGATIVE (NEGATIVE); Ketones Urine NEGATIVE (NEGATIVE); Leukocyte Esterase Urine NEGATIVE (NEGATIVE); Nitrite Urine NEGATIVE (NEGATIVE); Protein Urine NEGATIVE (NEG/TRACE); Specific Gravity Urine 1.025 (1.005-1.025); Urobilinogen Urine 0.2 EU/dL (0.2-1.0)
[2023-03-26 16:06] LABS: Bacteria Urine NONE SEEN #/HPF (NONE SEEN); Cast Seen? NONE SEEN #/LPF (NONE SEEN); Crystals Seen? None Seen #/HPF (None Seen); Mucus Urine TRACE (NONE SEEN); RBC Urine 0-2 #/HPF (0-2); Squamous Epithelial Cell Urine RARE #/LPF (NONE/RARE); WBC Urine 0-2 #/HPF (NONE SEEN)
== END 2023-03-26 17:34 | disposition home or self-care (01) ==
PROVIDERS: Emergency Provider Emergency Medicine; PCP Family Medicine
DX: E86.0 Dehydration (principal); R11.2 Nausea with vomiting, unspecified; R10.9 Unspecified abdominal pain; Z98.890 Other specified postprocedural states; Z79.899 Other long term (current) drug therapy; F17.210 Nicotine dependence, cigarettes, uncomplicated
CPT/HCPCS: 36415; 74018; 80053; 81001; 83690; 85025; 96374; 96375; 99285

== ENCOUNTER 2023-05-11 21:47 | Emergency (ER) | payer OTHER, SELFPAY ==
[2023-05-11 21:51] VITALS: BP 136/79; PULSE 81; RESP 16; TEMP 36.7; O2SAT 96; BMI 34.5
--- OUTSIDE RECORDS SUMMARY | 2023-05-11 21:54 | XMS_ITS | CCD ---
Author Name Unknown Address [id number] [place] [address] Organization [facility] Care Team Providers Care Engineering Leader Name Role Phone Latricia Guzman Primary Care Physician [phone] Jessie Murrell Attending Unavailable LueJessie MJoselin Referring Unavailable Lue Jessie MJoselin Admitting Unavailable LueJessie Attending Unavailable LueJessie Referring Unavailable Lue Jessie MJoselin Attending Unavailable AdinaeJessie Attending Unavailable RADHA ., DR ROME Primary Care Unavailable RADHA ., DR ROME Consulting Unavailable RADHA ., DR ROME Admitting Unavailable RADHA ., DR ROME Attending Unavailable MAXIMO, DR SAUMYA Forrester Consulting Unavailable HORTENCIA, DR STEPAN eJrome Consulting Unavailable GATITO ., MR GUEVARA Consulting Unavailable CHAGO ROLLINS Consulting Unavailable ROSALINO VIDALES Consulting Unavailable EDIS HERNÁNDEZ Consulting Unavailable RAMO ZEPEDA Unavailable LUE .JESSIE Consulting Unavailable JADA PEREIRA Consulting Unavailable MAUREEN GARDNER Consulting Unavailable HELGA BAINS Consulting Unavailable LUE ., JESSIE M Admitting Unavailable LUE .JESSIE Attending Unavailable RADHA ., DR ROME Primary Care Unavailable LOU, DR RAMO Hopson Consulting Unavailable MAXIMO, DR SAUMYA Forrester Consulting Unavailable JESSIE CHAUDHARY Consulting Unavailable RADHA .DR ROME Primary Care Unavailable MARKER ., DR SOTO Admitting Unavailable MARKER ., DR SOTO Attending Unavailable MARKER ., DR SOTO Consulting Unavailable ROSALINO VIDALES Consulting Unavailable DR LATRICIA TAYLOR Primary Care Unavailable VALDEZ BARRETO Admitting Unavailable VALDEZ BARRETO Attending Unavailable VALDEZ BARRETO Consulting Unavailable YING WALTON Consulting Unavailable RADHA ., DR ROME Primary Care Unavailable BRUCE RAMIREZ Admitting Unavailable BRUCE RAMIREZ Attending Unavailable PANDA .LEORA Consulting Unavailwili GUZMAN ., DR ROME Primary Care Unavailable SHANNON, DR MADDIE Forrester Admitting Unavailable SHANNON, DR MADDIE Forrester Attending Unavailable SHANNON, DR MADDIE Forrester Consulting Unavailable SHARON GODINEZ Consulting Unavailable KEVIN REYNOSO Referring Unavailable LATRICIA GUZMAN Primary Care Unavailable KEVIN RYENOSO Admitting Unavailable KEVIN REYNOSO Attending Unavailable LATRICIA GUZMAN Primary Care Unavailable Allergies Allergy Classification Reported Allergen(s) Allergy Type Date of Onset Reaction(s) Facility (4 sources) Naproxen; Translations: [naproxen] Drug Allergy Unknown (qualifier value) [facility] (1 source) Naproxen Drug Allergy [facility] Medications Current Medications Medication Drug Class(es) Dates Sig (Normalized) Sig (Original) cyclobenzaprine (1 source) Muscle Relaxant Start: 07-21-2022 cyclobenzaprine Oral Start Date: 07/21/22 Status: Ordered ondansetron 4 mg oral tablet (1 source) Serotonin-3 Receptor Antagonist Start: 07-21-2022 take 1 tablet by mouth every six hours as needed for nausea Zofran 4 mg Tab 4 mg = 1 tab(s), Oral, q6hr, PRN Nausea/Vomiting, # 20 tab(s), Refills(s) 0, called to pharmacy (Rx) Start Date: 07/21/22 Status: Ordered tamsulosin hydrochloride 0.4 mg oral capsule (1 source) alpha-Adrenergic Mic Start: 07-21-2022 take 1 capsule by mouth once daily tamsulosin 0.4 mg Cap 0.4 mg = 1 cap(s), Oral, Daily, # 30 cap(s), Refills(s) 0, called to pharmacy (Rx) Start Date: 07/21/22 Status: Ordered Completed/Discontinued Medications Medication Drug Class(es) Dates Sig (Normalized) Sig (Original) cephalexin 500 mg oral capsule (1 source) Cephalosporin Antibacterial Start: 05-12-2022 take 1 capsule by mouth every twenty-four hours Keflex 500 mg Cap 500 mg = 1 cap(s), Oral, q24hr, Take 1 pill the day before the procedure and 1 pill after the procedure., # 2 cap(s), Refills(s) 0, Pharmacy: [id number] Start Date: 05/12/22 Status: Ordered Problems Problem Classification Problem Date Documented Da te Episodic/Chronic Abdominal pain (8 sources) Unspecified abdominal pain; Translations: [Right lower quadrant pain] Onset: 07-20-2022 Episodic Acute and unspecified renal failure (1 source) Acute kidney failure, unspecified; Translations: [ACUTE KIDNEY FAILURE UNSPECIFIED] Onset: 07-14-2022 Episodic Calculus of urinary tract (14 sources) Ureteric stone; Translations: [Calculus of ureter] Onset: 07-06-2022 Episodic Diseases of white blood cells (1 source) Elevated white blood cell count, unspecified; Translations: [ELEVATED WHITE BLOOD CELL COUNT UNS] Onset: 07-14-2022 Chronic Fluid and electrolyte disorders (1 source) Dehydration; Translations: [DEHYDRATION] Onset: 07-14-2022 Episodic Miscellaneous mental health disorders (2 sources) Multiple personality disorder 07-13-2022 Chronic Nonspecific chest pain (1 source) Other chest pain; Translations: [OTHER CHEST PAIN] Onset: 07-22-2022 Episodic Osteoarthritis (2 sources) Arthritis 07-13-2022 Chronic Other diseases of kidney and ureters (1 source) Hydronephrosis with renal and ureteral calculous obstruction; Translations: [HYDRONPHROS RENL AND URETRL CALCUL OBST] Onset: 07-14-2022 Episodic Other gastrointestinal disorders (2 sources) Irritable bowel syndrome without diarrhea; Translations: [IRRITABLE BOWEL SYND W/O DIARRHEA] Onset: 03-28-2022 Chronic Other lower respiratory disease (1 source) Shortness of breath; Translations: [SHORTNESS OF BREATH] Onset: 07-22-2022 Episodic Other upper respiratory infections (4 sources) Acute pharyngitis, unspecified; Translations: [ACUTE PHARYNGITIS UNSPECIFIED] Onset: 08-11-2022 Episodic Pancreatic disorders (not diabetes) (1 source) Acute pancreatitis without necrosis or infection, unspecified; Translations: [ACUTE PANCREATITIS WO NECRS/INF UNS] Onset: 07-14-2022 Episodic Residual codes; unclassified (1 source) Other specified postprocedural states; Translations: [Other specified postprocedural states] Onset: 03-13-2023 Episodic Spondylosis; intervertebral disc disorders; other back problems (1 source) Other dorsalgia; Translations: [OTHER DORSALGIA] Onset: 07-22-2022 Episodic Substance-related disorders (2 sources) Nicotine dependence, cigarettes, uncomplicated; Translations: [Cannabis abuse, uncomplicated] Onset: 07-26-2022 Chronic Unclassified (1 source) CONTACT W/AND (SUSP) EXPOS COVID-19; Translations: [CONTACT W/AND (SUSP) EXPOS COVID-19] Onset: 07-14-2022 Viral infection (2 sources) Herpes simplex 07-13-2022 Episodic Results Test Name Value Interpretation Reference Range Facility XR KNEE RIGHT (1-2 VIEWS)on 03-14-2023 XR KNEE RIGHT (1-2 VIEWS) EXAMINATION: TWO XRAY VIEWS OF THE RIGHT KNEE 03/13/2023 12:14 pm COMPARISON: None. HISTORY: ORDERING SYSTEM PROVIDED HISTORY: knee TECHNOLOGIST PROVIDED HISTORY: knee FINDINGS: A single lateral view is submitted for interpretation, limiting evaluation. No acute fracture or dislocation is identified.There is soft tissue swelling along the infrapatellar region. A trace knee joint effusion is visible. There is suggestion of intra-articular gas. Lucency along the infrapatellar soft tissues may represent an overlying wound. IMPRESSION Lucency along the infrapatellar soft tissues may represent a wound. There is associated soft tissue swelling and suggestion of intra-articular knee gas. Interpreted by: Alfonso Charles MD Signed by: Alfonso Charles MD 03/13/23 Final result Normal [facility] OPERATIVE REPORTon OPERATIVE REPORT [address] [id number] OPERATIVE REPORT PATIENT NAME: OLEGARIO DONALD : 1990 MED REC NO: [id number] ROOM: ACCOUNT NO: [id number] ADMIT DATE: 03/13/2023 PROVIDER: Kevin Reynoso DATE OF PROCEDURE: 03/13/2023 PREOPERATIVE DIAGNOSES: 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 POSTOPERATIVE DIAGNOSES: 1. Subluxing patella. 2. Chondromalacia. 3. [place]-Schlatter disease. PROCEDURES PERFORMED: Arthroscopy of right knee with: 1. Chondroplasty. 2. Lateral release. 3. Mini arthrotomy with excision of [place]-Schlatter ossicle. SURGEON: Dr. Kevin Reynoso. ANESTHESIA: General. DESCRIPTION OF PROCEDURE: The patient was brought into the operating room and placed in the supine position on the operating table. General anesthetic was administered. The patient's right lower extremity was prepped with ChloraPrep and draped in a sterile fashion. The patient received Ancef preoperatively. The patella was then evaluated. The knee went from full extension to past 120 degrees of flexion. The patella could not be frankly dislocated. The medial lateral collateral ligaments were intact and the anterior and posterior drawers were stable. The arthroscope was then brought in through an anterolateral portal. Suprapatellar pouch was then examined. The patient had a single cleft tear involving the medial facet of the patella and there was some light chondromalacia involving the medial border of the patella. Medial plica was noted, which appeared to be normal. Patellofemoral groove was examined. There was some light chondromalacia centrally in the patellofemoral groove. The lateral border of the anterior femoral condyle was examined. There was some slight thickening of the articular cartilage along the margin, but no significant disruption was noted. The patella appeared to have a tight lateral retinaculum and could be brought just to a neutral position. The medial compartment was then examined. Medial femoral condyle and medial tibial plateau was intact. No significant chondromalacia was noted. The medial meniscus was probed. There was a good clean sharp margin. There was some overgrowth of the tissue over the anterior horn region and this was excised. The notch area was examined. The ACL was intact. In the lateral compartment, the patient had some light fraying involving the lateral meniscus along its inner margin, but no significant trimming was needed. The articular surface of the lateral femoral condyle and lateral tibial plateau was intact. The arthroscope and shaver were then switched portals. It was elected to proceed with a lateral release. This was performed arthroscopically and good clean release was obtained. This allowed for better tracking of the patella. Following completion of this, the knee joint was then drained. Arthrotomy was made along the medial border of the patellar tendon. The patellar tendon was then split longitudinally and the [place]--Schlatter ossicle was removed from the tendon. X-ray was obtained to verify that all the [place]--Schlatter ossicle had been removed. The tendon was then oversewn with 2-0 Vicryl interrupted [id number] sutures. Skin margins were injected with 0.5% Naropin. The subcutaneous layer was closed with 2-0 Vicryl and the skin was reapproximated with 4-0 undyed Monocryl subcuticular stitch. Portal sites were closed with 4-0 nylon interrupted simple sutures. The wounds were dressed with Steri-Strips, fluffs, ABD, Kerlix roll, and an EMILY wrap from toe to groin. Estimated blood loss was minimal. Anesthetic was discontinued. The patient was transferred to Recovery in a stable condition. The patient will be discharged home on Percocet and Toradol. Return to the office in two weeks. KEVIN REYNOSO PH/[id number] Doc#: [id number] CC: Normal [facility] Basic Metabolic Profon 02-16 Anion gap [Moles/Vol] 11 mmol/L Normal 9-17 [facility] Comment on above: Performed By: #### B WENDY, CDP #### [facility] [address] [place] [address] [address] [place] [address] Diamond Grader: Ramo Jesus MD BUN/CRE Ratio 9 Normal 9-20 [facility] Comment on above: Performed By: #### B WENDY, CDP #### [facility] [address] [place] [address] [address] [place] [address] Diamond Grader: Ramo Jesus MD Calcium [Mass/Vol] 9.7 mg/dL Normal 8.6-10.4 [facility] Comment on above: Performed By: #### B WENDY, CDP #### [address] [place] [address] Diamond Grader: Ramo Jesus MD Chloride [Moles/Vol] 100 mmol/L Normal 98-107 [facility] Comment on above: Performed By: #### B WENDY, CDP #### [facility] [address] [place] [address] Diamond Grader: Ramo Jesus MD CO2 [Moles/Vol] 27 mmol/L Normal 20-31 [facility] Comment on above: Performed By: #### B WENDY, CDP #### [facility] [address] [place] [address] Diamond Grader: Ramo Jesus MD Creatinine [Mass/Vol] 1.2 mg/dL Normal 0.7-1.2 [facility] Comment on above: Performed By: #### B WENDY, CDP #### [facility] [address] [place] [address] Diamond Grader: Ramo Jesus MD GFR/1.73 sq M.predicted among non-blacks MDRD (S/P/Bld) [Vol rate/Area] mL/min/{1.73_m2} Normal >60 [facility] Comment on above: Result Comment: These results are not intended for use in patients <18 years of age. eGFR results are calculated without a race factor using the 2020 CKD-EPI equation. Careful clinical correlation is recommended, particularly when comparing to results calculated using previous equations. The CKD-EPI equation is less accurate in patients with extremes of muscle mass, extra-renal metabolism of creatine, excessive creatine ingestion, or following therapy that affects renal tubular secretion. Performed By: #### B WENDY, CDP #### [facility] [address] [place] [address] Diamond Grader: Ramo Jesus MD Glucose [Mass/Vol] 115 mg/dL High 70-99 [facility] Comment on above: Performed By: #### B WENDY, CDP #### [facility] [address] [place] [address] Diamond Grader: Ramo Jesus MD Potassium [Moles/Vol] 3.9 mmol/L Normal 3.7-5.3 [facility] Comment on above: Performed By: #### B WENDY, CDP #### [facility] [address] [place], [place] [id number] Diamond Grader: Ramo Jesus MD Sodium [Moles/Vol] 138 mmol/L Normal 135-144 [facility] Comment on above: Performed By: #### B MP, CDP #### [facility] [address] [place], [place] [id number] Diamond Grader: Ramo Jesus MD Urea nitrogen [Mass/Vol] 11 mg/dL Normal 6-20 [facility] Comment on above: Performed By: #### B WENDY, CDP #### [facility] [address] [place], [place] [id number] Diamond Grader: Ramo Jesus MD CBC with Diffon 02-16-2023 Abs. Basophil 0.07 k/uL Normal 0.00-0.20 [facility] Comment on above: Performed By: #### B WENDY, CDP #### [facility] [address] [place] [address] [address] [place], [place] [id number] Diamond Grader: Ramo Jesus MD Abs.Imm.Granulocyte 0.04 k/uL Normal 0.00-0.30 [facility] Comment on above: Performed By: #### B MP, CDP #### [facility] [address] [place] [address] [address] [place], [place] [id number] Diamond Grader: Ramo Jesus MD Abs.Neutrophil (Seg) 5.65 k/uL Normal 1.50-8.10 [facility] Comment on above: Performed By: #### B WENDY, CDP #### [facility] [address] [place], [place] [id number] Diamond Grader: Ramo Jesus MD Basophils/100 WBC (Bld) 1 % Normal 0-2 [facility] Comment on above: Performed By: #### B MP, CDP #### [facility] [address] [place], [place] [id number] Diamond Grader: Ramo Jesus MD Eosinophils (Bld) [#/Vol] 0.14 10*3/uL Normal 0.00-0.44 [facility] Comment on above: Performed By: #### B WENDY, CDP #### [address] [place], [place] [id number] Diamond Grader: Ramo Jesus MD Eosinophils/100 WBC (Bld) 2 % Normal 1-4 [facility] Comment on above: Performed By: #### B WENDY, CDP #### [address] [place], [place] [address] Diamond Grader: Ramo Jesus MD Erythrocyte distribution width (RBC) [Ratio] 12.1 % Normal 11.8-14.4 [facility] Comment on above: Performed By: #### Marquez NGUYEN, CDP #### [address] [place], [facility]83 Diamond Grader: Ramo Jesus MD Hematocrit (Bld) [Volume fraction] 44.9 % Normal 40.7-50.3 [facility] Comment on above: Performed By: #### Marquez NGUYEN, CDP #### [address] [place], [facility]83 Diamond Grader: Ramo Jesus MD Hemoglobin (Bld) [Mass/Vol] 15.2 g/dL Normal 13.0-17.0 [facility] Comment on above: Performed By: #### B WENDY, CDP #### [address] [place], [place] [id number] Diamond Grader: Ramo Jesus MD Immature granulocytes/100 WBC (Bld) 1 % High 0 [facility] Comment on above: Performed By: #### Marquez NGUYEN, CDP #### [address] [place], [place] [id number] Diamond Grader: Ramo Jesus MD Lymphocytes (Bld) [#/Vol] 2.02 10*3/uL Normal 1.10-3.70 [facility] Comment on above: Performed By: #### B WENDY, CDP #### [facility] [address] [place] [address] Diamond Grader: Ramo Jesus MD Lymphocytes/100 WBC (Bld) 24 % Normal 24-43 [facility] Comment on above: Performed By: #### B WENDY, CDP #### [address] [place], [facility]83 Diamond Grader: Ramo Jesus MD MCH (RBC) [Entitic mass] 31.6 pg Normal 25.2-33.5 [facility] Comment on above: Performed By: #### B WENDY, CDP #### [address] [place], [facility]83 Diamond Grader: Ramo Jesus MD MCHC (RBC) [Mass/Vol] 33.9 g/dL Normal 28.4-34.8 [facility] Comment on above: Performed By: #### B WENDY, CDP #### [address] [place], [place] [id number] Diamond Grader: Ramo Jesus MD MCV (RBC) [Entitic vol] 93.3 fL Normal 82.6-102.9 [facility] Comment on above: Performed By: #### B WENDY, CDP #### [address] [place], [place] [address] Diamond Grader: Ramo Jesus MD Monocytes (Bld) [#/Vol] 0.60 10*3/uL Normal 0.10-1.20 [facility] Comment on above: Performed By: #### B WENDY, CDP #### [address] [place], [place] [id number] Diamond Grader: Ramo Jesus MD Monocytes/100 WBC (Bld) 7 % Normal 3-12 [facility] Comment on above: Performed By: #### B WENDY, CDP #### [facility] [address] [place], [place] [id number] Diamond Grader: Ramo Jesus MD Neutrophil (Seg) 65 % Normal 36-65 [facility] Comment on above: Performed By: #### B MP, CDP #### [facility] [address] [place], [place] [id number] Diamond Grader: Ramo Jesus MD NRBC Automated 0.0 per 100 WBC Normal 0.0 [facility] Comment on above: Performed By: #### B MP, CDP #### [facility] [address] [place], [place] [id number] Diamond Grader: Ramo Jesus MD Platelet mean volume (Bld) [Entitic vol] 9.7 fL Normal 8.1-13.5 [facility] Comment on above: Performed By: #### B MP, CDP #### [address] [place], [place] [id number] Diamond Grader: Ramo Jesus MD Platelets (Bld) [#/Vol] 252 10*3/uL Normal 138-453 [facility] Comment on above: Performed By: #### B MP, CDP #### [address] [place], [place] [id number] Diamond Grader: Ramo Jesus MD RBC (Bld) [#/Vol] 4.81 10*6/uL Normal 4.21-5.77 [facility] Comment on above: Performed By: #### B MP, CDP #### [address] [place], [place] [id number] Diamond Grader: Ramo Jesus MD WBC (Bld) [#/Vol] 8.5 10*3/uL Normal 3.5-11.3 [facility] Comment on above: Performed By: #### B MP, CDP #### [address] [place], [place] [id number] Diamond Grader: Ramo Jesus MD GROUP A STREP CULTUREon 07-30 S. pyogenes Ag Ql (Unsp spec) Culture Observations: NEGATIVE FOR GROUP A STREPTOCOCCUS. Normal [facility] Comment on above: Performed By: #### S SCRN, GRASTCX #### [facility] [address] [place] [address] Dr. Pratibha Stevenson STREPT SCREENon 08-11-2022 STREP SCREEN A Negative Normal NEGATIVE [facility] Comment on above: Performed By: #### S SCRN, GRASTCX #### [facility] [address] [place] [address] Dr. Pratibha Stevenson AMYLASEon 07-23-2022 Amylase [Catalytic activity/Vol] 50 U/L Normal 25-115 Comment on above: Performed By: #### E RUR #### [facility] [address] [place] [address] Dr. Pratibha Stevenson CBC AUTO DIFFon 07-23-2022 BASO # 0.1 103/ul Normal 0.0-0.1 Comment on above: Performed By: #### L ACT #### [facility] [address] [place] [address] Dr. Pratibha Stevenson Basophils/100 WBC (Bld) 1.0 % Normal 0.2-2.0 Comment on above: Performed By: #### L ACT #### [facility] [address] [place] [address] Dr. Pratibha Stevenson EO # 0.1 103/ul Normal 0.0-0.7 Comment on above: Performed By: #### L ACT #### [facility] [address] [place] [address] Dr. Pratibha Stevenson Eosinophils/100 WBC (Bld) 1.7 % Normal 0.9-7.0 Comment on above: Performed By: #### L ACT #### [facility] [address] [place] [address] Dr. Pratibha Stevenson Erythrocyte distribution width (RBC) [Ratio] 12.1 % Normal 11.0-15.0 [facility] Comment on above: Performed By: #### L ACT #### [facility] [address] [address] [address] Pratibha Stevenson Hematocrit (Bld) [Volume fraction] 45.9 % Normal 42.0-54.0 Comment on above: Performed By: #### L ACT #### [facility] [address] [address] [address] Pratibha Stevenson Hemoglobin (Bld) [Mass/Vol] 15.6 g/dL Normal 14.0-18.0 Comment on above: Performed By: #### L ACT #### [facility] [address] [place] [address] Dr. Pratibha Stevenson IG # 0.01 10e3/ul Normal 0.00-0.03 Comment on above: Performed By: #### L ACT #### [facility] [address] [place] [address] Dr. Pratibha Stevenson IG % 0.1 % Normal 0.0-0.5 Comment on above: Performed By: #### L ACT #### [facility] [address] [place] [address] Dr. Pratibha Stevenson LYMPH # 2.0 103/ul Normal 1.2-3.8 Comment on above: Performed By: #### L ACT #### [facility] [address] [place] [address] Dr. Pratibha Stevenson Lymphocytes/100 WBC (Bld) 28.8 % Normal 20.5-60.0 Comment on above: Performed By: #### L ACT #### [facility] [address] [place] [address] Dr. Pratibha Stevenson MANUAL DIFF REQ NO Normal [facility] Comment on above: Performed By: #### L ACT #### [facility] [address] [place] [address] Dr. Pratibha Stevenson MCH (RBC) [Entitic mass] 31.3 pg Normal 25.9-34.0 Comment on above: Performed By: #### L ACT #### [facility] [address] [address] [address] Pratibha Stevenson MCHC (RBC) [Mass/Vol] 34.0 g/dL Normal 29.9-35.2 Comment on above: Performed By: #### L ACT #### [facility] [address] [address] [address] Pratibha Stevenson MCV (RBC) [Entitic vol] 92.2 fL Normal 80.0-94.0 Comment on above: Performed By: #### L ACT #### [facility] [address] [address] [address] Pratibha Stevenson MONO # 0.3 103/ul Normal 0.3-0.8 Comment on above: Performed By: #### L ACT #### [facility] [address] [place] [address] Dr. Pratibha Stevenson Monocytes/100 WBC (Bld) 4.3 % Normal 1.7-12.0 Comment on above: Performed By: #### L ACT #### [facility] [address] [address] [address] Pratibha Stevenson NEUT # 4.5 103/ul Normal 1.4-6.5 Comment on above: Performed By: #### L ACT #### [facility] [address] [place] [address] Dr. Pratibha Stevenson Neutrophils/100 WBC (Bld) 64.1 % Normal 43.0-75.0 [facility] Comment on above: Performed By: #### L ACT #### [facility] [address] [address] [address] Pratibha Stevenson Platelet mean volume (Bld) [Entitic vol] 10.3 fL Normal 9.5-13.5 [facility] Comment on above: Performed By: #### L ACT #### [facility] [address] [address] Dr. Pratibha Stevenson PLT 219 103/ul Normal 150-450 [facility] Comment on above: Performed By: #### L ACT #### [facility] [address] [place], [place] [address] Dr. Pratibha Stevenson RBC 4.98 106/ul Normal 4.70-6.10 [facility] Comment on above: Performed By: #### L ACT #### [facility] [address] [place], [place] [address] Dr. Pratibha Stevenson WBC 7.1 103/ul Normal 4.0-11.0 Comment on above: Performed By: #### L ACT #### [facility] [address] [place], [place] [address] [address] ABD/PELV W CONon 07-24-[address] ABD/PELV W CON CT ABD/PELV W CON: 07/22/2022 10:36 PM EDT CLINICAL HISTORY: 31 years old Male with GENERALIZED ABDOMINAL PAIN. TECHNIQUE: Axial CT images through the abdomen and pelvis are obtained after the intravenous administration of contrast. Coronal and sagittal reformations are also obtained. Dose reduction techniques were achieved by using automated exposure control and/or adjustment of mA and/or kV according to patient size and/or use of iterative reconstruction technique. COMPARISON: CT abdomen pelvis 07/20/2022. FINDINGS: The lung bases are clear with no dependent infiltrate or effusion. The gallbladder, spleen, pancreas and bilateral adrenal glands are unremarkable. The liver is again mildly enlarged at 19 p.m. in greatest longitudinal diameter without focal abnormality. The bilateral kidneys demonstrate normal enhancement without hydronephrosis. Nonobstructing right renal calculus is again present measuring 3 mm. The bilateral ureters demonstrate no gross abnormality or obstruction. The stomach and small bowel are unremarkable. The appendix is visualized without inflammatory change. The colon is unremarkable. The bladder appears unremarkable. There is no evidence of aortic aneurysm present. No enlarged lymph nodes are seen. No free air or free fluid is seen. The prostate gland is within normal limits. The osseous structures appear unremarkable. IMPRESSION: 1. No acute intra-abdominal inflammatory process identified. Normal CT appearance of the appendix. 2. Stable borderline hepatomegaly. 3. Small right nonobstructing renal calculus measures 3 mm. Electronically authenticated by: YING WALTON Date: 2022-07-22 23:53 Normal [facility] DRUG SCREEN RAPID (URINE)on 07-23-2022 AMP Negative Normal NEGATIVE [facility] Comment on above: Performed By: #### E RUR #### [facility] [address] [place] [address] Dr. Pratibha Stevenson BAR Negative Normal NEGATIVE [facility] Comment on above: Performed By: #### E RUR #### [facility] [address] [place] [address] Dr. Pratibha Stevenson BUP Negative Normal NEGATIVE Comment on above: Performed By: #### E RUR #### [facility] [address] [place] [address] Dr. Pratibha Stevenson BZO Negative Normal NEGATIVE Comment on above: Performed By: #### E RUR #### [facility] [address] [place] [address] Dr. Pratibha Stevenson EMELY Negative Normal NEGATIVE Comment on above: Performed By: #### E RUR #### [facility] [address] [place] [address] Dr. Pratibha Stevenson CUT-OFFS SEE BELOW Normal Comment on above: Result Comment: AMP (Amphetamine): 500ng/mL, BAR (Barbituates): 200 ng/mL, BZO (Benzodiazepines): 150 ng/mL, BUP (Buprenorphine): 10 ng/mL, EMELY (Cocaine): 150 ng/mL, mAMP (Methamphetamine): 500 ng/mL, MTD (Methadone): 200 ng/mL, OPI (Opiates): 100 ng/mL, OXY (Oxycodone): 100 ng/mL, PCP (Phencyclidine): 25 ng/mL, PPX (Propoxyphene): 300 ng/mL, THC (Cannabinoids): 50 ng/mL, TCA (Trycyclic Antidepressants): 300 ng/mL Performed By: #### E RUR #### [facility] [address] [place] [address] Dr. Pratibha Stevenson DRUG CUT HEADER DRUG CLASS TEST SYST EM CUT-OFF CONCENTRATIONS ARE FOLLOWS: Normal Comment on above: Performed By: #### E RUR #### [facility] [address] [place] [address] Dr. Pratibha Stevenson mAMP Negative Normal NEGATIVE Comment on above: Performed By: #### E RUR #### [facility] [address] [place] [address] Dr. Pratibha Stevenson MTD Negative Normal NEGATIVE Comment on above: Performed By: #### E RUR #### [facility] [address] [place] [address] Dr. Pratibha Stevenson OPI Positive Abnormal NEGATIVE [facility] Comment on above: Performed By: #### E RUR #### [facility] [address] [place] [address] Dr. Pratibha Stevenson OXY Negative Normal NEGATIVE Comment on above: Performed By: #### E RUR #### [facility] [address] [place] [address] Dr. Pratibha Stevenson PCP Negative Normal NEGATIVE Comment on above: Performed By: #### E RUR #### [facility] [address] [place] [address] Dr. Pratibha Stevenson PPX Negative Normal NEGATIVE Comment on above: Performed By: #### E RUR #### [facility] [address] [place] [address] Dr. Pratibha Stevenson TCA Positive Abnormal NEGATIVE Comment on above: Performed By: #### E RUR #### [facility] [address] [place] [address] Dr. Pratibha Stevenson THC Positive Abnormal NEGATIVE [facility] Comment on above: Performed By: #### E RUR #### [facility] [address] [place] [address] Dr. Pratibha Stevenson ER URINE PROFILEon 3 Bilirubin Ql (U) Negative Normal NEGATIVE [facility] Comment on above: Performed By: #### E RUR #### [facility] [address] [place] [address] Dr. Pratibha Stevenson Clarity (U) CLEAR Normal CLEAR [facility] Comment on above: Performed By: #### E RUR #### [facility] [address] [place] [address] Dr. Pratibha Stevenson Color (U) LT. YELLOW Normal YELLOW [facility] Comment on above: Performed By: #### E RUR #### [facility] [address] [place] [address] Dr. Pratibha RIOS A micrscopic examination will be performed if indicated. Normal [facility] Comment on above: Performed By: #### E RUR #### [facility] [address] [place] [address] Dr. Pratibha Stevenson Glucose Ql (U) Negative Normal NEGATIVE [facility] Comment on above: Performed By: #### E RUR #### [facility] [address] [place] [address] Dr. Pratibha Stevenson Hemoglobin Ql (U) Negative Normal NEGATIVE [facility] Comment on above: Performed By: #### E RUR #### [facility] [address] [place] [address] Dr. Pratibha Stevenson Ketones Ql (U) Negative Normal NEGATIVE [facility] Comment on above: Performed By: #### E RUR #### [facility] [address] [place] [address] Dr. Pratibha Stevenson LEUKOCYTES Negative Normal NEGATIVE Comment on above: Performed By: #### E RUR #### [facility] [address] [place] [address] Dr. Pratibha Stevenson Nitrite Ql (U) Negative Normal NEGATIVE [facility] Comment on above: Performed By: #### E RUR #### [facility] [address] [place] [address] Dr. Pratibha Stevenson pH (U) 5.5 [pH] Normal 5-9 Comment on above: Performed By: #### E RUR #### [facility] [address] [place] [address] Dr. Pratibha Stevenson SPEC GRAVITY <=1.005 Abnormal 1.005-<=1.025 [facility] Comment on above: Performed By: #### E RUR #### [facility] [address] [place] [address] Dr. Pratibha Stevenson UA PROTEIN Negative Normal NEGATIVE/ TRACE [facility] Comment on above: Performed By: #### E RUR #### [facility] [address] [place] [address] Dr. Pratibha Stevenson UR MICRO IND NOT INDICATED Normal [facility] Comment on above: Performed By: #### E RUR #### [facility] [address] [place] [address] Dr. Pratibha Stevenson Urobilinogen Qn (U) 0.2 {Butch'U}/dL Normal 0.2 - 1. 0 Comment on above: Performed By: #### E RUR #### [facility] [address] [place] [address] Dr. Pratibha Stevenson LIPASEon 07-23-2022 Lipase [Catalytic activity/Vol] 126.0 U/L Normal 73.0-393.0 Comment on above: Performed By: #### E RUR #### [facility] [address] [place] [address] Dr. Pratibha Stevenson PROF 14(COMP METB)on 023 Albumin [Mass/Vol] 4.2 g/dL Normal 3.4-5.0 [facility] [place] [facility] Comment on above: Performed By: #### E RUR #### [facility] [address] [place] [address] Dr. Pratibha Stevenson Albumin/Globulin [Mass ratio] 1.4 {ratio} Normal Comment on above: Performed By: #### E RUR #### [facility] [address] [place] [address] Dr. Pratibha Stevenson ALP [Catalytic activity/Vol] 87 U/L Normal 46-116 [facility] Comment on above: Performed By: #### E RUR #### [facility] [address] [place] [address] Dr. Pratibha Stevenson ALT [Catalytic activity/Vol] 20 U/L Normal 16-63 Comment on above: Performed By: #### E RUR #### [facility] [address] [place] [address] Dr. Pratibha Stevenson Anion gap [Moles/Vol] 12.8 mmol/L Normal Comment on above: Performed By: #### E RUR #### [facility] [address] [place] [address] Dr. Pratibha Stevenson AST [Catalytic activity/Vol] 18 U/L Normal 15-37 Comment on above: Performed By: #### E RUR #### [facility] [address] [place] [address] Dr. Pratibha Stevenson Bilirubin [Mass/Vol] 0.5 mg/dL Normal 0.2-1.0 Comment on above: Performed By: #### E RUR #### [facility] [address] [place] [address] Dr. Pratibha Stevenson Calcium [Mass/Vol] 9.2 mg/dL Normal 8.5-10.1 [facility] [place] [facility] Comment on above: Performed By: #### E RUR #### [facility] [address] [place] [address] Dr. Pratibha Stevenson Chloride [Moles/Vol] 101 mmol/L Normal 98-107 Comment on above: Performed By: #### E RUR #### [facility] [address] [place] [address] Dr. Pratibha Stevenson CO2 [Moles/Vol] 24.7 mmol/L Normal 21.0-32.0 [facility] Comment on above: Performed By: #### E RUR #### [facility] [address] [place] [address] Dr. Pratibha Stevenson Creatinine [Mass/Vol] 1.20 mg/dL Normal 0.70-1.30 Comment on above: Performed By: #### E RUR #### [facility] [address] [place] [address] Dr. Pratibha Stevenson EGFR-AF [place] >60 Normal >=60 [facility] Comment on above: Performed By: #### E RUR #### [facility] [address] [place] [address] Dr. Pratibha Stevenson EGFR-NON AF [place] >60 Normal >=60 Comment on above: Performed By: #### E RUR #### [facility] [address] [place] [address] [address] Pratibha Stevenson Globulin (S) [Mass/Vol] 3.1 g/dL Normal Comment on above: Performed By: #### E RUR #### [facility] [address] [place] [address] [address] Pratibha Stevenson Glucose [Mass/Vol] 128 mg/dL Critically high 74-106 T [facility] [place] Comment on above: Performed By: #### E RUR #### [facility] [address] [address] [address] Pratibha Stevenson Potassium [Moles/Vol] 3.5 mmol/L Normal 3.5-5.1 Comment on above: Performed By: #### E RUR #### [facility] [address] [place] [address] Dr. Pratibha Stevenson Protein [Mass/Vol] 7.3 g/dL Normal 6.4-8.2 [facility] [place] [facility] Comment on above: Performed By: #### E RUR #### [facility] [address] [place] [address] Dr. Pratibha Stevenson Sodium [Moles/Vol] 135 mmol/L Critically low 136-145 Th [facility] Comment on above: Performed By: #### E RUR #### [facility] [address] [place] [address] Dr. Pratibha Stevenson Urea nitrogen [Mass/Vol] 10.0 mg/dL Normal 7.0-18.0 Comment on above: Performed By: #### E RUR #### [facility] [address] [place] [address] [address] Pratibha Stevenson Urea nitrogen/Creatinine [Mass ratio] 8.3 mg/mg Normal Comment on above: Performed By: #### E RUR #### [facility] [address] [address] [address] Pratibha Stevenson Screenson 07-22-2022 Screens [id number]. 00CD:127 Normal [facility] Screens [id number]. 00CD:127 Normal [facility] Patient Educationon 07-22-19 Patient Education Urology Dietary Guidelines to Help Prevent Kidney Stones Kidney stones are deposits of minerals and salts that form inside your kidneys. Your risk of developing kidney stones may be greater depending on your diet, your lifestyle, the medicines you take, and whether you have certain medical conditions. Most people can reduce their chances of developing kidney stones by following the instructions below. Depending on your overall health and the type of kidney stones you tend to develop, your dietitian may give you more specific instructions. What are tips for following this plan? Reading food labels ? Choose foods with no salt added or low-salt labels. Limit your sodium intake to less than 1500 mg per day. ? Choose foods with calcium for each meal and snack. Try to eat about 300 mg of calcium at each meal. Foods that contain 200?500 mg of calcium per serving include: ? 8 oz (237 ml) of milk, fortified nondairy milk, and fortified fruit juice. ? 8 oz (237 ml) of kefir, yogurt, and soy yogurt. ? 4 oz (118 ml) of tofu. ? 1 oz of cheese. ? 1 cup (300 g) of dried figs. ? 1 cup (91 g) of cooked broccoli. ? 1?3 oz can of sardines or mackerel. ? Most people need 1000 to 1500 mg of calcium each day. Talk to your dietitian about how much calcium is recommended for you. Shopping ? Buy plenty of fresh fruits and vegetables. Most people do not need to avoid fruits and vegetables, even if they contain nutrients that may contribute to kidney stones. ? When shopping for convenience foods, choose: ? Whole pieces of fruit. ? Premade salads with dressing on the side. ? Low-fat fruit and yogurt smoothies. ? Avoid buying frozen meals or prepared deli foods. ? Look for foods with live cultures, such as yogurt and kefir. Cooking ? Do not add salt to food when cooking. Place a salt shaker on the table and allow each person to add his or her own salt to taste. ? Use vegetable protein, such as beans, textured vegetable protein (TVP), or tofu instead of meat in pasta, casseroles, and soups. Meal planning ? Eat less salt, if told by your dietitian. To do this: ? Avoid eating processed or premade food. ? Avoid eating fast food. ? Eat less animal protein, including cheese, meat, poultry, or fish, if told by your dietitian. To do this: ? Limit the number of times you have meat, poultry, fish, or cheese each week. Eat a diet free of meat at least 2 days a week. ? Eat only one serving each day of meat, poultry, fish, or seafood. ? When you prepare animal protein, cut pieces into small portion sizes. For most meat and fish, one serving is about the size of one deck of cards. ? Eat at least 5 servings of fresh fruits and vegetables each day. To do this: ? Keep fruits and vegetables on hand for snacks. ? Eat 1 piece of fruit or a handful of berries with breakfast. ? Have a salad and fruit at lunch. ? Have two kinds of vegetables at dinner. ? Limit foods that are high in a substance called oxalate. These include: ? Spinach. ? Rhubarb. ? Beets. ? Potato chips and nauruan fries. ? Nuts. ? If you regularly take a diuretic medicine, make sure to eat at least 1?2 fruits or vegetables high in potassium each day. These include: ? Avocado. ? Banana. ? Todd, prune, carrot, or tomato juice. ? Baked potato. ? Cabbage. ? Beans and split peas. General instructions ? Drink enough fluid to keep your urine clear or pale yellow. This is the most important thing you can do. ? Talk to your health care provider and dietitian about taking daily supplements. Depending on your health and the cause of your kidney stones, you may be advised: ? Not to take supplements with vitamin C. ? To take a calcium supplement. ? To take a daily probiotic supplement. ? To take other supplements such as magnesium, fish oil, or vitamin B6. ? Take all medicines and supplements as told by your health care provider. ? Limit alcohol intake to no more than 1 drink a day for non women and 2 drinks a day for men. One drink equals 12 oz of beer, 5 oz of wine, or 1? oz of hard liquor. ? Lose weight if told by your health care provider. Work with your dietitian to find strategies and an eating plan that works best for you. What foods are not recommended? Limit your intake of the following foods, or as told by your dietitian. Talk to your dietitian about specific foods you should avoid based on the type of kidney stones and your overall health. Grains Breads. Bagels. Rolls. Baked goods. Salted crackers. Cereal. Pasta. Vegetables Spinach. Rhubarb. Beets. Canned vegetables. Pickles. Olives. Meats and other protein foods Nuts. Nut butters. Large portions of meat, poultry, or fish. Salted or cured meats. Deli meats. Hot dogs. Sausages. Dairy Cheese. Beverages Regular soft drinks. Regular vegetable juice. Seasonings and other foods Seasoning blends with salt. Salad dr (more content not included)... Normal [facility] Urology Office/Clinic Noteon 07-21-2022 Urology Office/Clinic Note Chief Complaint pt here for a hospital f/u for kidney stones HPI Staff Pt is a 31 yr old Male here today for a hospital f/u from [facility] for a kidney stone. CT scan done 07/20/22 shows Bilateral nonobstructive renal calculi. No hydronephrosis or hydroureter hepatomegaly. Pts previous DX: kidney stone, ureteral stone. IPSS 26. Pt states he started feeling pain on Monday in the right upper back area and presented to the ER on Monday. Pt had CT scans done at [facility]. Pt states the pain is now moving down towards the lower part of the right flank area. Pt states he has not passed a stone yet this week. Dysuria: denies Incomplete bladder emptying: yes Hematuria: denies Frequency: denies Urgency: denies Nocturia: 2-3 x Stream: slow stream, some start stop at times Leaking: yes Post void dripping: denies Wearing pads/ Depends: denies Urge incontinence: some Stress incontinence: denies Incontinence without Sensory Awareness: denies Abdominal pain: denies Flank pain: yes, right side Sexual complaints: _ History of Present Illness Tests reviewed: reviewed CT scan. I have reviewed the previous health record information and history for this patient from Dr. Murrell. I have reviewed and verified the staff HPI to be accurate for this encounter. There have been no associated fever, chills, or blood in the urine. Denies any urinary infections since last encounter. Review of Systems PHQ Score Initial Depression Screen Score: 0 ROS - Provider Constitutional: denies weight loss, denies hot flashes. Eyes: denies eye problems. Gastrointestinal: denies nausea, denies vomiting. Cardiovascular: denies chest pain or angina. Integumentary: no dryness Musculoskeletal: denies musculoskeletal symptoms. ENMT: denies otolaryngeal symptoms. Respiratory: no shortness of breath. Heme/Lymph: denies easy bleeding tendency, denies easy bruising tendency. Psychiatric: no confusion, no anxiety. Genitourinary: See HPI. Physical Exam Vitals & Measurements HR: 74(Peripheral) BP: 133/69 HT: 70 in HT: 177 cm WT: 96 kg WT: 211.2 lb BMI: 30.64 General Appearance: alert, no distress, well nourished, well developed male. Genitourinary: Flank Pain: none. Bladder: nonpalpable. MSK: R paraspinal muscle tenderness to light palpation Assessment/Plan IPSS 26 (13). MARGOTH 11 (14). 1. Kidney stones (N20.0: Calculus of kidney) JANICE 07/06/22 - Multiple echogenic foci measuring up to 4 mm, nonobstructing nephrolithiasis. KUB 07/06/22 - No visible urinary tract calculi. [employer] forms were filled out on 05/23/22. Has not had time to do [address] scan AP wo con 07/20/22 - Bilat nonobstructive renal calculi 6 mm on R and 2 mm on L. No hydroneph or ureter. No stranding. Started having right upper back pain on Monday presented to the ER on Monday. CT scan was taken. Pain has moved down towards the lower part of the right flank area. Has not passed any stones. Lower right back pain on exam today. Nothing on CT explains pt's pain except stool burden. Urine volume has decreased, intaking same amount of fluid. No stones in ureters per recent CT, not sure what is causing pain. ER gave pt Flexeril for musculoskeletal pain, not helping. Discussed surgical intervention to remove stones seen in the Right kidney, however cannot guarantee that will resolve his pain given non-obstructing. States he passed stone after surgery and there have been incidences of imaging not identifying stones that he passes shortly later. Discussed what stones are not seen on CT scan which he does not have. Follow up in 6 mths or sooner if needed. Pt understands and agrees with plan. -Cont 90 fl oz daily goal -Cont Flomax 0.4 mg QD -Dietary modifications -Void q2-3hrs -Pt to call for f/u after metabolic workup completed 2. History of kidney stones (Z87.442: Personal history of urinary calculi) Urology consult 05/08/[address] [facility] due to 4-5 mm Ureteral Stone S/P Lt Ureteroscopy, Laser Litho (dusting), Lt stent placement 05/08/22 - Extensive Brenden's plaques noted Cysto/Lt stent removal 05/23/22. No hydro on f/u renal US. No passage of fragments noted. Follow-up With When Contact Information Handy WILEY, Jessie Menchaca, URL, URO Additional Instructions: Patient Education Dietary Guidelines to Help Prevent Kidney Stones I, Shalini Macias, personally scribed for Dr. Murrell on 07/21/2022 09:39:58. . Documentation recorded by the scribe, Shalini Macias, accurately reflects the services(s) I performed and decisions made by me. Authenticated by Dr. Murrell on 07/21/2022 16:55:05. Problem List/Past Medical History Ongoing Arthritis Herpes simplex History of kidney stones Kidney stones Multiple personality disorder Ureteral stone Historical No qualifying data Procedure/Surgical History Cystoscopic removal of ureteric stent (05/23/2022), Cystoscopic laser lithotripsy of ureteric calculus (05/08/2022) (more content not included)... Normal [facility] Comment on above: Result Comment: Elec tronically Signed By: Jessie Murrell MD\.br\Date and Time Signed: 07/21/22 16:55 EDT\.br\Electronically Co-Signed By: Shalini Macias\.br\Date and Time Co-Signed: 07/21/22 09:40 EDT CBC AUTO DIFFon 07-20-2022 BASO # 0.1 103/ul Normal 0.0-0.1 Comment on above: Performed By: #### C BC #### [facility] [address] [address] [address] Pratibha Stevenson Basophils/100 WBC (Bld) 0.7 % Normal 0.2-2.0 Comment on above: Performed By: #### C BC #### [facility] [address] [address] [address] Pratibha Stevenson EO # 0.2 103/ul Normal 0.0-0.7 Comment on above: Performed By: #### C BC #### [facility] [address] [place] [address] Dr. Pratibha Stevenson Eosinophils/100 WBC (Bld) 2.4 % Normal 0.9-7.0 Comment on above: Performed By: #### C BC #### [facility] [address] [place] [address] Dr. Pratibha Stevenson Erythrocyte distribution width (RBC) [Ratio] 12.4 % Normal 11.0-15.0 Comment on above: Performed By: #### C BC #### [facility] [address] [place] [address] Dr. Pratibha Stevenson Hematocrit (Bld) [Volume fraction] 45.8 % Normal 42.0-54.0 Comment on above: Performed By: #### C BC #### [facility] [address] [place] [address] Dr. Pratibha Stevenson Hemoglobin (Bld) [Mass/Vol] 15.6 g/dL Normal 14.0-18.0 [facility] Comment on above: Performed By: #### C BC #### [facility] [address] [place] [address] Dr. Pratibha Stevenson IG # 0.03 10e3/ul Normal 0.00-0.03 Comment on above: Performed By: #### C BC #### [facility] [address] [place] [address] Dr. Pratibha Stevenson IG % 0.4 % Normal 0.0-0.5 Comment on above: Performed By: #### C BC #### [facility] [address] [place] [address] Dr. Pratibha Stevenson LYMPH # 3.0 103/ul Normal 1.2-3.8 [facility] Comment on above: Performed By: #### C BC #### [facility] [address] [place] [address] Dr. Pratibha Stevenson Lymphocytes/100 WBC (Bld) 34.7 % Normal 20.5-60.0 [facility] Comment on above: Performed By: #### C BC #### [facility] [address] [place] [address] Dr. Pratibha Stevenson MANUAL DIFF REQ NO Normal [facility] Comment on above: Performed By: #### C BC #### [facility] [address] [place] [address] Dr. Pratibha Stevenson MCH (RBC) [Entitic mass] 31.3 pg Normal 25.9-34.0 Comment on above: Performed By: #### C BC #### [facility] [address] [place] [address] Dr. Pratibha Stevenson MCHC (RBC) [Mass/Vol] 34.1 g/dL Normal 29.9-35.2 [facility] Comment on above: Performed By: #### C BC #### [facility] [address] [place] [address] Dr. Pratibha Stevenson MCV (RBC) [Entitic vol] 92.0 fL Normal 80.0-94.0 [facility] Comment on above: Performed By: #### C BC #### [facility] [address] [place] [address] Dr. Pratibha Stevenson MONO # 0.5 103/ul Normal 0.3-0.8 [facility] Comment on above: Performed By: #### C BC #### [facility] [address] [place] [address] Dr. Pratibha Stevenson Monocytes/100 WBC (Bld) 5.9 % Normal 1.7-12.0 Comment on above: Performed By: #### C BC #### [facility] [address] [place] [address] Dr. Pratibha Stevenson NEUT # 4.8 103/ul Normal 1.4-6.5 Comment on above: Performed By: #### C BC #### [facility] [address] [place] [address] Dr. Pratibha Stevenson Neutrophils/100 WBC (Bld) 55.9 % Normal 43.0-75.0 Comment on above: Performed By: #### C BC #### [facility] [address] [place] [address] Dr. Pratibha Stevenson Platelet mean volume (Bld) [Entitic vol] 10.0 fL Normal 9.5-13.5 Comment on above: Performed By: #### C BC #### [facility] [address] [place] [address] Dr. Pratibha Stevenson PLT 243 103/ul Normal 150-450 [facility] Comment on above: Performed By: #### C BC #### [facility] [address] [place] [address] Dr. Pratibha Stevenson RBC 4.98 106/ul Normal 4.70-6.10 [facility] Comment on above: Performed By: #### C BC #### [facility] [address] [place] [address] Dr. Pratibha Stevenson WBC 8.5 103/ul Normal 4.0-11.0 [facility] Comment on above: Performed By: #### C BC #### [facility] [address] [place] [address] ABD/PELVIS WO CONon 07-20 CT ABD/PELVIS WO CON EXAM: CT ABD/PELVIS WO CON 07/20/2022 1:13 AM EDT OH001 CLINICAL STATEMENT: CALCULUS OF KIDNEY COMPARISON: 05/11/2022 TECHNIQUE: Helically acquired images were obtained of the abdomen and pelvis without IV contrast. No oral contrast was administered. AEC is utilized. 2-D reconstructed images are provided. FINDINGS: Hepatomegaly. There are bilateral nonobstructive renal calculi measuring 6 mm on the right and 2 mm on the left. There is no hydronephrosis or hydroureter. Gallbladder is unremarkable The upper abdominal solid organs are unremarkable. There is no bowel obstruction or free air. There is no ascites. There is no evidence of aortic aneurysm. There is no retroperitoneal adenopathy. There is no appendicitis or diverticulitis. There are no pelvic masses or loculated fluid collections. The lung bases are clear. There are no destructive bone lesions identified. IMPRESSION: Bilateral nonobstructive renal calculi. No hydronephrosis or hydroureter. Hepatomegaly. Electronically authenticated by: ROSALINO VIDALES Date: 2022-07-20 04:12 Normal [facility] URINE PROFILEon 3 Bilirubin Ql (U) Negative Normal NEGATIVE The [facility] Comment on above: Performed By: #### L ACT #### [facility] [address] [place] [address] Dr. Pratibha Stevenson Clarity (U) CLEAR Normal CLEAR Comment on above: Performed By: #### L ACT #### [facility] [address] [place] [address] Dr. Pratibha Stevenson Color (U) LT. YELLOW Normal YELLOW [facility] Comment on above: Performed By: #### L ACT #### [facility] [address] [place] [address] Dr. Pratibha Stevenson ERURanjan A micrscopic examination will be performed if indicated. Normal [facility] Comment on above: Performed By: #### L ACT #### [facility] [address] [place] [address] Dr. Pratibha Stevenson Glucose Ql (U) Negative Normal NEGATIVE The [facility] Comment on above: Performed By: #### L ACT #### [facility] [address] [place] [address] Dr. Pratibha Stevenson Hemoglobin Ql (U) Negative Normal NEGATIVE The [facility] Comment on above: Performed By: #### L ACT #### [facility] [address] [place] [address] Dr. Pratibha Stevenson Ketones Ql (U) Negative Normal NEGATIVE The [facility] Comment on above: Performed By: #### L ACT #### [facility] [address] [place] [address] Dr. Pratibha Stevenson LEUKOCYTES Negative Normal NEGATIVE Comment on above: Performed By: #### L ACT #### [facility] [address] [place] [address] Dr. Pratibha Stevenson Nitrite Ql (U) Negative Normal NEGATIVE [facility] Comment on above: Performed By: #### L ACT #### [facility] [address] [place] [address] Dr. Pratibha Stevenson pH (U) 6.0 [pH] Normal 5-9 Comment on above: Performed By: #### L ACT #### [facility] [address] [place] [address] Dr. Pratibha Stevenson SPEC GRAVITY <=1.005 Abnormal 1.005-<=1.025 [facility] Comment on above: Performed By: #### L ACT #### [facility] [address] [place] [address] Dr. Pratibha Stevenson UA PROTEIN Negative Normal NEGATIVE/ TRACE [facility] Comment on above: Performed By: #### L ACT #### [facility] [address] [place] [address] Dr. Pratibha Stevenson UR MICRO IND NOT INDICATED Normal The [facility] Comment on above: Performed By: #### L ACT #### [facility] [address] [place] [address] Dr. Pratibha Stevenson Urobilinogen Qn (U) 0.2 {Butch'U}/dL Normal 0.2 - 1. 0 Comment on above: Performed By: #### L ACT #### [facility] [address] [place] [address] Dr. Pratibha Stevenson LACTATE/LACTIC ACIDon 2022 Lactate [Moles/Vol] 0.8 mmol/L Normal 0.4-2.0 [facility] Comment on above: Performed By: #### L ACT #### [facility] [address] [place] [address] Dr. Pratibha Stevenson PROF 14(COMP METB)on 023 Albumin [Mass/Vol] 4.3 g/dL Normal 3.4-5.0 [facility] Comment on above: Performed By: #### E RUR #### [facility] [address] [place] [address] Dr. Pratibha Stevenson Albumin/Globulin [Mass ratio] 1.3 {ratio} Normal Comment on above: Performed By: #### E RUR #### [facility] [address] [place] [address] Dr. Pratibha Stevenson ALP [Catalytic activity/Vol] 94 U/L Normal 46-116 Comment on above: Performed By: #### E RUR #### [facility] [address] [place] [address] Dr. Pratibha Stevenson ALT [Catalytic activity/Vol] 23 U/L Normal 16-63 Comment on above: Performed By: #### E RUR #### [facility] [address] [place] [address] Dr. Pratibha Stevenson Anion gap [Moles/Vol] 10.5 mmol/L Normal Comment on above: Performed By: #### E RUR #### [facility] [address] [place] [address] Dr. Pratibha Stevenson AST [Catalytic activity/Vol] 21 U/L Normal 15-37 Comment on above: Performed By: #### E RUR #### [facility] [address] [place] [address] Dr. Pratibha Stevenson Bilirubin [Mass/Vol] 0.5 mg/dL Normal 0.2-1.0 Comment on above: Performed By: #### E RUR #### [facility] [address] [place] [address] Dr. Pratibha Stevenson Calcium [Mass/Vol] 9.3 mg/dL Normal 8.5-10.1 [facility] Comment on above: Performed By: #### E RUR #### [facility] [address] [address] [address] Pratibha Stevenson Chloride [Moles/Vol] 102 mmol/L Normal 98-107 Comment on above: Performed By: #### E RUR #### [facility] [address] [address] [address] Pratibha Stevenson CO2 [Moles/Vol] 26.2 mmol/L Normal 21.0-32.0 [facility] Comment on above: Performed By: #### E RUR #### [facility] [address] [address] [address] Pratibha Stevenson Creatinine [Mass/Vol] 1.18 mg/dL Normal 0.70-1.30 Comment on above: Performed By: #### E RUR #### [facility] [address] [place] [address] Dr. Pratibha Stevenson EGFR-AF [place] >60 Normal >=60 [facility] Comment on above: Performed By: #### E RUR #### [facility] [address] [place] [address] Dr. Pratibha Stevenson EGFR-NON AF [place] >60 Normal >=60 Comment on above: Performed By: #### E RUR #### [facility] [address] [place] [address] Dr. Pratibha Stevenson Globulin (S) [Mass/Vol] 3.2 g/dL Normal Comment on above: Performed By: #### E RUR #### [facility] [address] [place] [address] Dr. Pratibha Stevenson Glucose [Mass/Vol] 115 mg/dL Critically high 74-106 T [facility] Comment on above: Performed By: #### E RUR #### [facility] [address] [place] [address] Dr. Pratibha Stevenson Potassium [Moles/Vol] 3.7 mmol/L Normal 3.5-5.1 [facility] Comment on above: Performed By: #### E RUR #### [facility] [address] [place] [address] Dr. Pratibha Stevenson Protein [Mass/Vol] 7.5 g/dL Normal 6.4-8.2 [facility] Comment on above: Performed By: #### E RUR #### [facility] [address] [address] [address] Pratibha Stevenson Sodium [Moles/Vol] 135 mmol/L Critically low 136-145 Th [facility] Comment on above: Performed By: #### E RUR #### [facility] [address] [address] [address] Pratibha Stevenson Urea nitrogen [Mass/Vol] 11.0 mg/dL Normal 7.0-18.0 Comment on above: Performed By: #### E RUR #### [facility] [address] [address] [address] Pratibha Stevenson Urea nitrogen/Creatinine [Mass ratio] 9.3 mg/mg Normal Comment on above: Performed By: #### E RUR #### [facility] [address] [address] [address] Pratibha Stevenson TROPONIN, HIGH SENSITIVITYon 07-20-2022 HSTROP 5.0 pg/mL Normal 4.0-76.1 Comment on above: Result Comment: CUT- OFF POINTS HAVE BEEN ESTABLISHED BASED ON THE FOURTH UNIVERSAL DEFINITIONS OF MYOCARDIAL INFARCTION. THE UPPER REFERENCE LIMIT (URL) OF TROPONIN, DEFINED THE 99TH PERCENTILE OF cTnI DISTRIBUTION IN A REFERENCE POPULATION, HAS BEEN CONFIRMED THE DECISION THRESHOLD FOR [place] DIAGNOSIS. Performed By: #### E RUR #### [facility] [address] [address] [address] Pratibha Stevenson Formson 07-15-2022 Forms [id number] 0CD:127 Normal [facility] Screenson 07-15-2022 Screens [id number] 0CD:127 Normal [facility] Screens [id number] 0CD:127 Normal [facility] Patient Educationon 07-14-19 23 Patient Education Urology Dietary Guidelines to Help Prevent Kidney Stones Kidney stones are deposits of minerals and salts that form inside your kidneys. Your risk of developing kidney stones may be greater depending on your diet, your lifestyle, the medicines you take, and whether you have certain medical conditions. Most people can reduce their chances of developing kidney stones by following the instructions below. Depending on your overall health and the type of kidney stones you tend to develop, your dietitian may give you more specific instructions. What are tips for following this plan? Reading food labels ? Choose foods with no salt added or low-salt labels. Limit your sodium intake to less than 1500 mg per day. ? Choose foods with calcium for each meal and snack. Try to eat about 300 mg of calcium at each meal. Foods that contain 200?500 mg of calcium per serving include: ? 8 oz (237 ml) of milk, fortified nondairy milk, and fortified fruit juice. ? 8 oz (237 ml) of kefir, yogurt, and soy yogurt. ? 4 oz (118 ml) of tofu. ? 1 oz of cheese. ? 1 cup (300 g) of dried figs. ? 1 cup (91 g) of cooked broccoli. ? 1?3 oz can of sardines or mackerel. ? Most people need 1000 to 1500 mg of calcium each day. Talk to your dietitian about how much calcium is recommended for you. Shopping ? Buy plenty of fresh fruits and vegetables. Most people do not need to avoid fruits and vegetables, even if they contain nutrients that may contribute to kidney stones. ? When shopping for convenience foods, choose: ? Whole pieces of fruit. ? Premade salads with dressing on the side. ? Low-fat fruit and yogurt smoothies. ? Avoid buying frozen meals or prepared deli foods. ? Look for foods with live cultures, such as yogurt and kefir. Cooking ? Do not add salt to food when cooking. Place a salt shaker on the table and allow each person to add his or her own salt to taste. ? Use vegetable protein, such as beans, textured vegetable protein (TVP), or tofu instead of meat in pasta, casseroles, and soups. Meal planning ? Eat less salt, if told by your dietitian. To do this: ? Avoid eating processed or premade food. ? Avoid eating fast food. ? Eat less animal protein, including cheese, meat, poultry, or fish, if told by your dietitian. To do this: ? Limit the number of times you have meat, poultry, fish, or cheese each week. Eat a diet free of meat at least 2 days a week. ? Eat only one serving each day of meat, poultry, fish, or seafood. ? When you prepare animal protein, cut pieces into small portion sizes. For most meat and fish, one serving is about the size of one deck of cards. ? Eat at least 5 servings of fresh fruits and vegetables each day. To do this: ? Keep fruits and vegetables on hand for snacks. ? Eat 1 piece of fruit or a handful of berries with breakfast. ? Have a salad and fruit at lunch. ? Have two kinds of vegetables at dinner. ? Limit foods that are high in a substance called oxalate. These include: ? Spinach. ? Rhubarb. ? Beets. ? Potato chips and nauruan fries. ? Nuts. ? If you regularly take a diuretic medicine, make sure to eat at least 1?2 fruits or vegetables high in potassium each day. These include: ? Avocado. ? Banana. ? Todd, prune, carrot, or tomato juice. ? Baked potato. ? Cabbage. ? Beans and split peas. General instructions ? Drink enough fluid to keep your urine clear or pale yellow. This is the most important thing you can do. ? Talk to your health care provider and dietitian about taking daily supplements. Depending on your health and the cause of your kidney stones, you may be advised: ? Not to take supplements with vitamin C. ? To take a calcium supplement. ? To take a daily probiotic supplement. ? To take other supplements such as magnesium, fish oil, or vitamin B6. ? Take all medicines and supplements as told by your health care provider. ? Limit alcohol intake to no more than 1 drink a day for non women and 2 drinks a day for men. One drink equals 12 oz of beer, 5 oz of wine, or 1? oz of hard liquor. ? Lose weight if told by your health care provider. Work with your dietitian to find strategies and an eating plan that works best for you. What foods are not recommended? Limit your intake of the following foods, or as told by your dietitian. Talk to your dietitian about specific foods you should avoid based on the type of kidney stones and your overall health. Grains Breads. Bagels. Rolls. Baked goods. Salted crackers. Cereal. Pasta. Vegetables Spinach. Rhubarb. Beets. Canned vegetables. Pickles. Olives. Meats and other protein foods Nuts. Nut butters. Large portions of meat, poultry, or fish. Salted or cured meats. Deli meats. Hot dogs. Sausages. Dairy Cheese. Beverages Regular soft drinks. Regular vegetable juice. Seasonings and other foods Seasoning blends with salt. Salad dr (more content not included)... Normal [place] [facility] Urology Office/Clinic Noteon 07-13-2022 Urology Office/Clinic Note Chief Complaint Pt is here for PO stent removal HPI Staff Olegario is a 31 y.o. male new patient here for [facility] ER follow up. Urology consult done 05/08/22 @ [facility] due to 4-5mm Ureteral Stone. S/P Lt Ureteroscopy/Lt Laser Litho/Lt stent placement done 05/08/22, cysto/Lt stent removal done 05/23/22. JANICE done on 07/06/22 showed bilateral nonobstructing nephrolithiasis. KUB done on 07/06/22 showed no visible urinary tract calculi. [employer] forms were filled out on 05/23/22, no results yet. Dysuria: denies Incomplete bladder emptying: denies Hematuria: denies Frequency: yes Urgency: yes Nocturia: 1x a night Stream: steady stream Leaking: denies Post void dripping: mild Wearing pads/ Depends: denies Urge incontinence: denies Stress incontinence: denies Incontinence without Sensory Awareness: denies Abdominal pain: denies Flank pain: denies Sexual complaints: _ History of Present Illness Tests reviewed: reviewed UA, US, KUB, op note. I have reviewed the previous health record information and history for this patient. I have reviewed and verified the staff HPI to be accurate for this encounter. There have been no associated fever, chills, flank pain, or blood in the urine. Denies any urinary infections since last encounter. Review of Systems PHQ Score Initial Depression Screen Score: 0 ROS - Provider Constitutional: denies weight loss, denies hot flashes. Eyes: denies eye problems. Gastrointestinal: denies nausea, denies vomiting. Cardiovascular: denies chest pain or angina. Integumentary: no dryness Musculoskeletal: denies musculoskeletal symptoms. ENMT: denies otolaryngeal symptoms. Respiratory: no shortness of breath. Heme/Lymph: denies easy bleeding tendency, denies easy bruising tendency. Psychiatric: no confusion, no anxiety. Genitourinary: See HPI. Physical Exam Vitals & Measurements HR: 73(Peripheral) BP: 124/68 HT: 70 in HT: 177 cm WT: 96 kg WT: 211.2 lb BMI: 30.64 General Appearance: alert, no distress, well nourished, well developed male. Head: normocephalic . Eyes: normal orbit and globe. ENMT: normal examination of external ears. Chest: symmetric chest rise, respirations non labored. Cardiovascular: regular rate and rhythm. Abdomen: soft, non distended, no tenderness Genitourinary: Flank Pain: none. Bladder: nonpalpable. Skin: warm, dry, no bruising. Psychiatric: cooperative, affect appropriate for age, normal judgement, euthymic mood. Assessment/Plan Olegario is a 31 yo male new patient following up to [facility] ER. IPSS 13. MARGOTH 14. 1. Ureteral stone (N20.1: Calculus of ureter) Urology consult 05/08/[address] [facility] due to 4-5 mm Ureteral Stone S/P Lt Ureteroscopy, Laser Litho (dusting), Lt stent placement 05/08/22 - Extensvie Brenden's plaques noted Cysto/Lt stent removal 05/23/22 No hydro on f/u renal US. No passage of fragments noted 2. Kidney stones (N20.0: Calculus of kidney) JANICE 07/06/22 - Multiple echogenic foci measuring up to 4 mm, nonobstructing nephrolithiasis. KUB 07/06/22 - No visible urinary tract calculi. [employer] forms were filled out on 05/23/22. Has not had time to do 24 hour urine yet. Explained findings from imaging, possibly uric acid stones and Brenden's plaques, not visible on xray. Counseled pt on dietary modifications for stone prevention and mgmt options Follow up 6 mos with KUB, JANICE, met workup or sooner if needed. Pt understands and agrees with plan. -90 fl oz daily goal -lab slip given for blood work -dietary modifications. -24 hr urine -Pt to call for f/u after metabolic workup completed. Declined scheduled f/u Follow-up With When Contact Information Jessie Murrell MD, URL, URO Additional Instructions: 6 mos, KUB, JANICE, met workup Patient Education Dietary Guidelines to Help Prevent Kidney Stones I, Shalini Macias, personally scribed for Dr. Murrell on 07/13/2022 10:28:31. . Documentation recorded by the scribe, Shalini Macias, accurately reflects the services(s) I performed and decisions made by me. Authenticated by Dr. Murrell on 07/13/2022 16:53:04. Problem List/Past Medical History Ongoing Arthritis Herpes simplex Kidney stones Multiple personality disorder Ureteral stone Historical No qualifying data Procedure/Surgical History Cystoscopic removal of ureteric stent (05/23/2022), Cystoscopic laser lithotripsy of ureteric calculus (05/08/2022). Medications No active medications Allergies naproxen (Unknown) Social History Substance Abuse Current, Marijuana, Previous treatment: None., 07/13/2022 Tobacco 5-9 cigarettes (between 1/4 to 1/2 pack)/day in last 30 days Tobacco Use:. Never Smokeless Tobacco Use:. Cigarettes, Yes, 07/13/2022 Family History Arthritis: Father. Heart disease: Father. High cholesterol: Father. Hypertension: Father. Immunizations Vaccine Date Status measles/mumps/rubella virus vaccine 12/26/1997 Recor (more content not included)... Normal [facility] Comment on above: Result Comment: Elec tronically Signed By: Jessie Murrell MD\.br\Date and Time Signed: 07/13/22 16:53 EDT\.br\Electronically Co-Signed By: Shalini Macias\.br\Date and Time Co-Signed: 07/13/22 10:29 EDT RAD - MISCon 07-11-2022 RAD - MISC [id number] 0CD:127 Normal [facility] RAD - Ultrasound Reporton RAD - Ultrasound Report [id number] 0CD:127 Normal [facility] US KIDNEYSon 07-06-2022 US KIDNEYS EXAMINATION: US KIDNEYS HISTORY: Kidney stone COMPARISON: No relevant comparison available. TECHNIQUE: Ultrasound examination was performed of the bladder. FINDINGS: Right Kidney: Normal in size, contour and cortical echotexture. The cortex measures 1.3 cm. No solid cortical mass or hydronephrosis. Multiple echogenic foci measuring up to 8 mm, nonobstructing nephrolithiasis. Height: 5.3 cm Length: 10.0 cm Width: 4.8 cm Left Kidney: Normal in size, contour and cortical echotexture. The cortex measures 1.5 cm. No solid cortical mass or hydronephrosis. Multiple echogenic foci measuring up to 4 mm, nonobstructing nephrolithiasis Height: 5.5 cm Length: 10.7 cm Width: 4.6 cm The urinary bladder is normal in appearance. 133 mL. IMPRESSION: Bilateral nonobstructing nephrolithiasis Electronically authenticated by: RAMO BLAKE Date: 2022-07-06 11:14 Normal XR KUB 1 VIEWon 07-06-2022 XR KUB 1 VIEW EXAMINATION: XR KUB 1 VIEW HISTORY: Kidney stone ; stent removal 2 weeks ago COMPARISON: XR KUB 05/12/2022 FINDINGS: KIDNEY/URETER - RIGHT: No visible renal or ureteral calcifications. KIDNEY/URETER - LEFT: No visible renal or ureteral calcifications. PELVIS: No visible ureteral stones. BOWEL: No abnormal dilation or deviation. BONES: No acute abnormality. OTHER: Negative. No abnormal gaseous collections. IMPRESSION: 1. No visible urinary tract calculi. 2. Interval removal of left ureteral stent. Electronically authenticated by: SAUMYA MARSH Date: 2022-07-06 11:57 Normal Coding Summary.on 05-30-2022 Coding Summary. [id number] Gh 0bWw+PGhlYWQ+GL5EZMVjP 94hpRJnnT5AS9oNEL7VOCO KQKBIOT4YOX0jlLV6NDokS 2VybiAv EadbcXGfYL00GZj4TOK8qA qhTQyomM5byHJgO0t9WhUb IR45jY21GMjnINDrShT2Rl ZpbjsgbWFy O4hsGgQatVErEsl+PHRhYm xlIHdpZHRoPScxMDAlJyBz dSejND2bUn3rOMBoXJNpqN xhcHNlOiBj p3phHGKbWKjvPT4gzQjgZ0 OaoPK6CMQji3r9Xq29rNC+ KLSrLKV8gSbcKZwey007Qi Kfu0chNPX0 yEBrGYnvDAZ1R58kn0V2WF ZgCVHwFOP8vIE9eY4rkYsc veovN8HaoVTjUtG0JLP6tR ArbB5xlIex uugcvZ6hEpj+T60HCM7KSY WVRB6KDgw0D2ThJiwkcRS+ CI29MVVdXH95eSFuaUJqi1 pnrXk5OjUh ECGuAOY4ePisGZnjk9FtHF VwL54whVOpe9W8VDOxxTfb mJOyKnRmkVT9rM8hNSkeic sca3qazirh Pcurw7teht20hI49O75sRK fkSUEzRJZ3KKOpEDEeaLtm ym9jpA3bWg8+FUoep9eto5 gvoAe4WmYs OMIkkvAvkOkwRYC8v3HwVb 16J5NtbThlh0WlQtx7rz69 cDEty9W6eUQ6AEfiKXCguE 0mOTccJwW7 UPYgXuNavF42xXDrUHseLe 7oeWjosRvsKD6jZRWemvhc YMEgoV1hADIgpGGncHwhAF 4wNTBpbjtm y093JqZyIUV1PIWkcSHeH4 IbaL5cDiLtUPDpTOJiE9Dx lWLyBByaX276QJieUwJ6RZ UpjaTfK8Pq VGPphWhyJfT1s5K9Eb2Nl7 BcyotjKUU5FBroZQJjKoBe WoOaUoR1K6OfBnk2CBAwaF rnTE2vJ5Wr BEJmgwhadsykhTQ0DGMvNK LhtU45nLMpZLwmPj0md7W5 n990YBAjGOCyiS54Rr4nnT ogMTBwdCBU vO6bssksn1whilwpVaEzPH OgNTf0VDj1AWEbiFxkBlZe DVQ1QyP7XCZ2rYNmhT5ybE leavgptT1g Oyc+B84hjZ9nMBJ2FIK0cv smFMExuoHrCS21IK44U7Lo PjwvdGFibGU+PGRpdiBzdH mtFK5mUbSw o3exu3TzPGcrK6ErDYUlMY rcAfv0RLJfUJR8cQG6dI4b XEUqBGxmg2T3tBO3L7Sjzu Bhgs8sz7eo WUBmVCkqX20jtNLcq7S1OZ RxyHI8LKTkyXhcWnAlbV48 Oyc+OKKiwWnaq3SzUepat9 ywq5uaiNm2 HzZqXEPtnmTjjHwvXQO5a6 WiQl46O13vLYhkAMXjBTOd LXAbPPTteUjtib0akX5uMz 8+PGNvbCB3 pRA7mF2kMKFaPdR7HPosI5 39AqOejRTiAqyua9new0qa xTa9JgPvVIQzdkZguTehOQ Y8e5QrSi26 Q73kRKbnIMMyLVTrPQGdOD HxtQfvpb8uwB5aIc2+PC9j j6muoi78qN04oSS+PHRkIH U3rYfuLHeo XTFdyZ7kBEwiSmA7KJJrUr SwjG68cNQfGIswDg6qfVek iGzlBJ1zUDUiywjmf588Ra Isu6odDRUz qSItACigDHP5I84vr4E2BX NoQGUgBZN8aPT3wK6toPyn bjogbGVmdDsgdmVydGljYW kdWLcqX286 IHRvcDsnPlBhdGllbnQgTm PlQOe2E8IrGoo3WDJwrGjp SQ6jwCQrXMvxCj1ikBjcrY pkHY9bIWYp nptuv203YmHdc9fqBSHiaT QtGYmqPNF8D45yg7J8RJAu SJEiQOW7bTY1dY0cwSkhen ogbGVmdDsg gwUqxHqtVZniKCinZ800VO RvcDsnPkJpcnRoIERhdGU6 WA52ZX72dSVwd0C4jKN7G6 BhZGRpbmct gubtyUD7ROEuMQEbqV27Jc 2gtVdzBs4pVEIvTPV2FNSl dUPzM9EpzH3sItZpYFXeVH JoO2TydUFx QAqvI920JEnxSyA0DRGbjy HyB7IlJYNoeWrpDoF8h2V2 Fw7TK5Y4ZC82SP80yJJzo1 F8kXX6A6Fd TNDclnoolgoxlER2AQWsCN KzbU59Ex0yoXsiZj1rWLVm LTW3LZDfyDOyX5PahD2xVm AjMDAwMDAw C5FoyHUuTOqgT162JDtdPx G7WYYsfzHqT3QeATDjrWon VrZ4u9N5Rc8RCQs9ZR55KG 50wCUnf8W5 uHK8O6EnWKPfuiqddgrzfE G1BTYwCDDfcM19Qa8sjHje Wu2gNFPqRPX8OXCbeLAyQ0 LjjQ5iMfQd TPEzJJFpB5NcvDOlHCseT3 69IDenAfQ1JRUntiVlC6Lw AYUewMlpAfQ8x6Z3Ld8UOO FsCK80YNG3 vPE6RF95OS86X9FrQfqpjO FibGU+PHRhYmxlIHdpZHRo YJsvLTEcLmBcfKxqBP8qXw 9yZGVyLWNv lVzbaOAnHjNrw0vkGARmMQ rjYM3bpEvcF1KkoMI7CQRb y9a3Qt18P10eK2BddAY+PG WyiAC6iCF5 gN5yMfXyUhK3WWvvE145Ax WyxEPsDneiu5tla4emuQr2 ZiT9TDUupcCnmBbmTHE5o2 KwNf39T50g IHdpZHRoPSIxNSUiIHZhbG nkon5vvV4aLo2+PGNvbCB3 oOK8eV8wJbZyGoL1ZNhdN4 49InRvcCIv Nhsmq7ddw7dgfOb3JmTmGJ TaqdZdtIstINR6r0HjTe75 C7WhzHgsh9PiVkv9dy08bF Xed4R1vQD3 N0QoEVMjgvhjnYXzlMcrUL 6fMQUsvvnzFESdsC2sMJXn A4a2BqCxDvT7MLmdA4Kzdh D9CDZllUHi AAaoMQN6Y29we6G8FCQpQX OtIHC3qPC8xD9wtUejyazh bGVmdDsgdmVydGljYWwtYW spT478ZDCy yRnqZZJflL7nEFYieTDafK mjVO4bWDXmtacrJrUHZBZW PmdpZCXYZ78gWRiffOA+PH PxXVS2aQwy EIhgDJXzwH1zEMMgX4c7Ud UrKfY8XWtgL8FfKSQbnmur Hh29yY1yLuKfCdG5NWwcG7 GctuZ4IBTt tUZuWMelOHY3V48wh4O8QD CkFKKfDGH4xCQ2gM4beYir bjogbGVmdDsgdmVydGljYW biVAmwE664 VMWxcSulKpU4QrI4OdU1SH K5A3RiLao5FRZacKmlQC7z fASjCMyfYn5beVbxtXbpRS 4wNTBpbjtw GRHptQ7wQTQlsVFoxUqnFF 0dDDSuwpsdt295TkZyHKF8 AYZikTIbD8OhvG9oFnZzHE GbMZUcM8Sn dOHaDLwvB889TVzxNdS1VE EbohCaD9QcFQExoGqcRdF4 p8U4As2cIKZXCPPjvffdjO Q+PHRkIHN0 nTpzEQyvNQScpK4vFVJyW6 g7AiLwZtF6CPcdN5QrFZUg kafeId01fL6vMsCbXtN2KU oiT7WymbR0 FCQsrQZhPEpcLFU6O59wi8 U7KPLiMKPtQOI4hGJ7lF2q bGlnbjogbGVmdDsgdmVydG ljYWwtYWxp W426RQLcxHntRr6odDO9A5 EyFne4PTDbsXpkSS1cyJMd EJlzKw4bdWahdCrhGY2qIN BpbjtwYWRk wN3bTAAznVJmdAqsPZ6wHM Odczvhp312IfFoFJO4BVPn dZRqI3IppJ4rZeGoFMEvGY CaJ1ZfcPHq GLsyN959UYrvCoH6JUUucd DaG9ZyUKEmiYhhPsC3a5G8 Xz3PmWRcSEKrNA07IH33KO 89M1UjRjms dGFibGU+PHRhYmxlIHdpZH HqJKnyKAFcZbOzpRixXB4n Uz8qRRDiNDJomCgloEGhSo Juz4zjGJHj PYorAG8maNqmI5JjfKX4OZ Wya5u2Rx82V23zI5WlvPR+ DCLloAA6lDC8iQ6sFtFvUj A3URegW053 GxKsgPDeKcyqy3iwa8aqsU a3XgPsISFxojEvqHfsHIO5 p9RxTi89S11eGZmoVNJbYQ IyMCUiIHZh kGkihj4gdA7uJy9+PGNvbC A9tLA7eV6hGhNiHfJ4SDyq X836ZjObmHDnMhelL03wW9 JvdXA+PHRy Fye1NVVsbUyaDW3jiFSpYZ asRo6kLZN2TvWkKyEiEOwp Q6LwQMEmzyedugodkWX2TO ZeQJBdtA92 Sy4stUwnHu0aILLnDPT0VS NzyUSlJ7FaqT8oJcVzMMFp VQPyC4ExwECpNHveJ091PE vkLwC7YPVp xtVhY6XcFOSagAjmQuI1e7 U7Pf0NfFberBSxMC5xUbYy LWy6E9KjJuw0JAJhdVrmNU 0ncGFkZGlu Xx5aiCwpzLhzWI3cUWRypk mza645WkYfy9riFSPzlGQa MRpoFMC2V33sz8U8NUEtGV GrXLV4rJY1 lY1duKdazvsceYCroAyqbc ArwJcwXSbwLBavS550RZLe oHyfRyYDBbd8Y9MmFyb1HR TnsTnaTL3w tGDtHYkmVn4hrDirbRgeHW 0sVFIdrjsje085LjNzx8xg KPPaoAAqRGwpZPN1B11jq8 M1CVUwTTDt CBU1nBL7pH4auDcyflrrrU VmdDsgdmVydGljYWwtYWxp U015SHQhzPoiRh4CEkt5U7 KeCuy2VUDy vDpjVP6qdIBxUDspSs6lwD clxQjaCQ2tTOWwldztf324 FrRdg9bdKWRpqRTnBQlkGB L6W51dp4T3 LMIjBARwPRR6mJA9qP8wfF lnbjogbGVmdDsgdmVydGlj GOwvLDoxN647DOHvkSzzXb BheWVyOjwv dGQ+CT16vk99G9LfQmbgJg z8LDCnJJW5zJL3iW6nLMZm DBnra9E4pHN4V3OtcgPqcj 9kg2xlVEHg ZTog (more content not included)... Normal [facility] Operative Reporton Operative Report Patient: AUDREY DONALD Age: 31 years Sex: Male : 1990 Associated Diagnoses: None Author: Jessie Murrell MD Procedure Operative Information Details: Date/ Time: 05/23/2022 10:00:00. Pre-Op Dx: Kidney stone (ORO37-BS N20.0, Billing Diagnosis, Medical), Foreign Body in Bladder - T19.1XXA. Post-Op Dx: Same. Anesthesia Type: Local. Procedure: Local Cystoscopy with Stent Removal. Complications: None. Risks/Benefits/Informe d Consent: Surgical risks, benefits, details of the procedure have been explained to the patient, Full informed consent has been obtained. Intraoperative Information Prepped: The patient was placed in supine position, The patient was prepped with the Betadine solution. Anesthesia: 2% Xylocaine Jelly per urethra. Procedure: Cystoscopy and Left Stent Removal, The flexible Cystoscope was passed in retrograde fashion into the bladder without difficulty, The bladder was viewed in entirety and found to be without tumors or stones, Mild inflammation was seen surrounding the orifice with the stent seen protruding from it, The stent was then grasped and removed in its entirety. Specimens Removed: Left ureteral stent, disposed. Devices Implanted: None. Postoperative Information Discharge: The patient tolerated the procedure well and was subsequently discharged home. Follow-up in 6-weeks with KUB and renal ultrasound. Will proceed with metabolic stone work-up including serum labs and 24-hour urine . Normal [facility] Comment on above: Result Comment: Elec tronically Signed By: Jessie Murrell MD\.br\Date and Time Signed: 05/27/22 17:07 EST Consent for Procedure/Surger yon 05-26-2022 Consent for Procedure/Surgery [id number]#1.0 0CD:127 [facility] IntraOperative Documentson 0 05-26-2022 IntraOperative Documents [id number]#1.0 0CD:127 [facility] Formson 05-24-2022 Forms [id number]#1.0 0CD:127 [facility] Consent for Treatmenton 05-02 Consent for Treatment [id number]#1.0 0CD:127 [facility] Main OR Intraoperative Recor don 05-23-2022 Main OR Intraoperative Record IntraOp Document Type FTURO Summary Primary Physician: Jessie Murrell MD Finalized Date/Time: 05/23/22 10:14:49 Pt. Name: OLEGARIO DONALD/Sex: 1990 Male Med Rec #: [id number] Physician: Jessie Murrell MD Financial #: [id number] Pt. Type: O Room/Bed: / Admit/Disch: 05/23/22 08:41:51 - Institution: Case Times FTURO Entry 1 Patient Times In Room 05/23/22 10:05:00 Out Room 05/23/22 10:21:00 Procedure Times Start 05/23/22 10:11:00 Stop 05/23/22 10:16:00 Anesthesia Times Last Modified By: Yumi CAMARILLO, Marlyn RIVERA 05/23/22 10:14:32 Case Attendance FTURO Entry 1 Entry 2 Entry 3 Case Attendee Handy WILEY, Jessie Eason RN, NICOLE, Nereida Mobley CST Role Performed Surgeon - Primary Touch Up Painter - Primary Scrub - Primary Time In 05/23/22 10:05:00 05/23/22 10:05:00 05/23/22 10:05:00 Time Out 05/23/22 10:21:00 05/23/22 10:21:00 05/23/22 10:21:00 Procedure CYSTOSCOPY LOCAL WITH CYSTOSCOPY LOCAL WITH CYSTOSCOPY LOCAL WITH STENT REMOVAL(Left) STENT REMOVAL(Left) STENT REMOVAL(Left) Comments Last Modified By: Yumi CAMARILLO, CNOR, Yumi CAMARILLO, MICHELLEOR, Yumi CAMARILLO, MICHELLEOR, Marlyn 05/23/22 Marlyn 05/23/22 Marlyn 05/23/22 10:14:33 10:14:33 10:14:33 Surgical Procedures FTURO Entry 1 Procedure Description Procedure CYSTOSCOPY LOCAL WITH Modifiers Left STENT REMOVAL Surgeon Description CYSTOSCOPY LEFT STENT REMOVAL Primary Procedure Yes Primary Surgeon Jessie Murrell MD Start 05/23/22 10:11:00 Stop 05/23/22 10:16:00 Anesthesia Type Local Surgical Service Urology Wound Class 2 - Clean-Contaminated Last Modified By: Yumi CAMARILLO, MICHELLEOR, Marlyn 05/23/22 10:14:34 General Case Data FTURO Pre-Care Text: Classifies surgical wound, implements aseptic technique, initiates traffic control Entry 1 Case Information OR URO 1 FT Case Level None Wound Class 2 - Clean-Contaminated Specialty Urology Preop Diagnosis KIDNEY STONES Postop Same As Preop Yes Postop Diagnosis KIDNEY STONES Outcomes Met? Yes Last Modified By: Yumi CAMARILLO, MICHELLEOR, Marlyn 05/23/22 10:08:35 Post-Care Text: The patient is free from signs and symptoms of infection EU IntraOp - FTURO Pre-Care Text: Implements protective measures prior to operative or invasive procedure, confirms identity before the operative or invasive procedure, verifies operative procedure, surgical site, and laterality Entry 1 EU Perioperative Protocols Procedure(s) CYSTOSCOPY LOCAL WITH Patient Identity Birthday, ID Band STENT REMOVAL(Left) Verified (select at Check, Patient least 2): Participation Consents / H and P HandP, Surgery/Procedure Operative Site N/A Verified Consent Marking Verified Surgical Site Yes Laterality Verified n/a Verified Procedure Verified Yes Correct Patient No Position Verified Availability Equipment, Medication Time Out Jessie Murrell MD, Verified (If Participants Yumi CAMARILLO, CNOR, Applicable) Leandra Cline CST, Julie A Time Out Complete 05/23/22 10:09:00 Allergies Reviewed? Yes Allergies Reviewed Self/Patient With Body Position Supine Prep Area penis Prep Agents Betadine Solution Skin. Condition Unable to Visualize Additional None Specimens Collected Vitals - EU Blood Pressure Pulse Respirations SPO2 EBL 0 IandO - EU Total Intake 0 mL Total Output 0 mL Outcomes Met? Yes Last Modified By: NICOLE Eason RN, Ruthann 05/23/22 10:10:31 Post-Care Text: The patient is free from signs and symptoms of injury caused by extraneous objects Sign Out FTURO Entry 1 Before Patient Leaves OR Nurse verbally Yes Nurse verbally n/a confirms with the confirms with the team the name of team that the procedure(s) instrument, sponge, recorded and needle counts are correct (or N/A) Nurse verbally n/a Nurse verbally n/a confirms with the confirms with the team how the team whether there specimen is labeled are any equipment (including patient problems to be name), if applicable addressed Sign Out Complete 05/23/22 10:18:00 Last Modified By: NICOLE Eason RN, Ruthann 05/23/22 10:14:49 Case Comments Finalized By: NICOLE Eason RN, Ruthann Document Signatures Signed By: NICOLE Eason RN, Ruthann 05/23/22 10:14 Normal [facility] Main OR Preoperative Recordo n 05-23-2022 Main OR Preoperative Record Holding Area Document Type FTURO Summary Primary Physician: Jessie Murrell MD Finalized Date/Time: 05/23/22 10:11:23 Pt. Name: OLEGARIO DONALD/Sex: 1990 Male Med Rec #: [id number] Physician: Jessie Murrell MD Financial #: [id number] Pt. Type: O Room/Bed: / Admit/Disch: 05/23/22 08:41:51 - Institution: Case Times Holding FTURO Pre-Care Text: Verifies consent for planned procedure, identifies individual values and wishes concerning care, includes family members in perioperative teaching Secures patient's records' belongings, and valuables, maintains patient's dignity and privacy, and maintains patient confidentiality Entry 1 In Holding 05/23/22 09:26:00 Outcomes Met? Yes Last Modified By: Shannon Tapia LPN 05/23/22 09:26:26 Post-Care Text: The patient participates in decisions affecting his or her perioperative plan of care The patient's right to privacy is maintained Surgery Checklist FTURO Entry 1 Patient Birthday, Patient Procedure History and Physical, Identification: Participation Verification: Surgical Consent, With Patient NPO after Midnight: No Date/Time: 05/23/22 09:26:00 Personal Items: Glasses Personal Items clothes Comment: Limitations: na Complaints of Pain: Yes Pain Comment: difficulty voiding, not Skin Integrity Intact, [place], Warm, & feeling empty, pain in Dry scrotal area SEVERE 7 Constant, denies swelling Vitals - EU Blood Pressure 111/74 Pulse 63 bpm Respirations 16 br/min SPO2 96 % RN Reviewed Yes Last Modified By: Yumi CAMARILLO, Marlyn RIVERA 05/23/22 10:11:21 General Comments: remp:36.1 Finalized By: NICOLE Eason RN, Ruthann Document Signatures Signed By: Shannon Tapia LPN 05/23/22 09:28 NICOLE Eason RN, Ruthann 05/23/22 10:11 [facility] Insurance Correspondence Off iceon 05-17-2022 Insurance Correspondence Office [id number]#1. 00CD:127 [facility] ED Note-Physicianon 05-14-19 ED Note-Physician [id number]#1.0 0CD:127 [facility] RAD - CT Reporton 05-14-[address] - [address] Report [id number]#1. 00CD:127 [facility] RAD - CT Report [id number]#1. 00CD:127 Normal [facility] RAD - MISCon 05-14-2022 RAD - MISC [id number]#1. 00CD:127 [facility] RAD - MISC [id number]#1. 00CD:127 [facility] RAD - MISC [id number]#1. 00CD:127 [facility] RAD - Ultrasound Reporton RAD - Ultrasound Report [id number]#1. 00CD:127 Normal [facility] AMYLASEon 05-12-2022 Amylase [Catalytic activity/Vol] 39 U/L Normal 25-115 Comment on above: Performed By: #### E RUR #### [facility] [address] [place] [address] Dr. Pratibha Stevenson CBC AUTO DIFFon 05-12-2022 BASO # 0.0 103/ul Normal 0.0-0.1 Comment on above: Performed By: #### L ACT #### [facility] [address] [place] [address] Dr. Pratibha Stevenson Basophils/100 WBC (Bld) 0.2 % Normal 0.2-2.0 Comment on above: Performed By: #### L ACT #### [facility] [address] [place] [address] Dr. Pratibha Stevenson EO # 0.0 103/ul Normal 0.0-0.7 Comment on above: Performed By: #### L ACT #### [facility] [address] [place] [address] Dr. Pratibha Stevenson Eosinophils/100 WBC (Bld) 0.0 % Critically low 0.9-7.0 Comment on above: Performed By: #### L ACT #### [facility] [address] [place] [address] Dr. Pratibha Stevenson Erythrocyte distribution width (RBC) [Ratio] 11.7 % Normal 11.0-15.0 Comment on above: Performed By: #### L ACT #### [facility] [address] [place] [address] Dr. Pratibha Stevenson Hematocrit (Bld) [Volume fraction] 43.0 % Normal 42.0-54.0 Comment on above: Performed By: #### L ACT #### [facility] [address] [place] [address] Dr. Pratibha Stevenson Hemoglobin (Bld) [Mass/Vol] 13.9 g/dL Critically low 14.0-18.0 Comment on above: Performed By: #### L ACT #### [facility] [address] [place] [address] Dr. Pratibha Stevenson IG # 0.03 10e3/ul Normal 0.00-0.03 Comment on above: Performed By: #### L ACT #### [facility] [address] [place] [address] Dr. Pratibha Stevenson IG % 0.3 % Normal 0.0-0.5 Comment on above: Performed By: #### L ACT #### [facility] [address] [place] [address] Dr. Pratibha Stevenson LYMPH # 0.8 103/ul Critically low 1.2-3.8 [facility] Comment on above: Performed By: #### L ACT #### [facility] [address] [place] [address] Dr. Pratibha Stevenson Lymphocytes/100 WBC (Bld) 8.6 % Critically low 20.5-60.0 Comment on above: Performed By: #### L ACT #### [facility] [address] [place] [address] Dr. Pratibha Stevenson MANUAL DIFF REQ NO Normal [facility] Comment on above: Performed By: #### L ACT #### [facility] [address] [place] [address] Dr. Pratibha Stevenson MCH (RBC) [Entitic mass] 31.0 pg Normal 25.9-34.0 Comment on above: Performed By: #### L ACT #### [facility] [address] [place] [address] Dr. Pratibha Stevenson MCHC (RBC) [Mass/Vol] 32.3 g/dL Normal 29.9-35.2 Comment on above: Performed By: #### L ACT #### [facility] [address] [place] [address] Dr. Pratibha Stevenson MCV (RBC) [Entitic vol] 96.0 fL Critically high 80.0-94.0 Comment on above: Performed By: #### L ACT #### [facility] [address] [place] [address] Dr. Pratibha Stevenson MONO # 0.4 103/ul Normal 0.3-0.8 Comment on above: Performed By: #### L ACT #### [facility] [address] [address] [address] Pratibha Stevenson Monocytes/100 WBC (Bld) 4.5 % Normal 1.7-12.0 Comment on above: Performed By: #### L ACT #### [facility] [address] [place] [address] Dr. Pratibha Stevenson NEUT # 8.4 103/ul Critically high 1.4-6.5 [facility] Comment on above: Performed By: #### L ACT #### [facility] [address] [place] [address] Dr. Pratibha Stevenson Neutrophils/100 WBC (Bld) 86.4 % Critically high 43.0-75.0 Comment on above: Performed By: #### L ACT #### [facility] [address] [place] [address] Dr. Pratibha Stevenson Platelet mean volume (Bld) [Entitic vol] 10.6 fL Normal 9.5-13.5 Comment on above: Performed By: #### L ACT #### [facility] [address] [place] [address] Dr. Pratibha Stevenson PLT 227 103/ul Normal 150-450 [facility] Comment on above: Performed By: #### L ACT #### [facility] [address] [place] [address] Dr. Pratibha Stevenson RBC 4.48 106/ul Critically low 4.70-6.10 [facility] Comment on above: Performed By: #### L ACT #### [facility] [address] [place] [address] Dr. Pratibha Stevenson WBC 9.7 103/ul Normal 4.0-11.0 [facility] Comment on above: Performed By: #### L ACT #### [facility] [address] [place] [address] Dr. Pratibha Stevenson Consent for Procedure/Surger yon 05-12-2022 Consent for Procedure/Surgery [id number]#1.0 0CD:127 Normal [facility] LIPASEon 05-12-2022 Lipase [Catalytic activity/Vol] 110.0 U/L Normal 73.0-393.0 Comment on above: Performed By: #### E RUR #### [facility] [address] [place] [address] Dr. Pratibha Stevenson Operative Reporton Operative Report [id number]#1.0 0CD:127 Normal [facility] Operative Report [id number]#1.0 0CD:127 Normal [facility] Comment on above: Other Comment: SAMMI PATHAK PAGES PROF 14(COMP METB)on 023 Albumin [Mass/Vol] 3.3 g/dL Critically low 3.4-5.0 [facility] Comment on above: Performed By: #### E RUR #### [facility] [address] [place] [address] Dr. Pratibha Stevenson Albumin/Globulin [Mass ratio] 1.2 {ratio} Normal Comment on above: Performed By: #### E RUR #### [facility] [address] [place] [address] Dr. Pratibha Stevenson ALP [Catalytic activity/Vol] 68 U/L Normal 46-116 Comment on above: Performed By: #### E RUR #### [facility] [address] [place] [address] Dr. Pratibha Stevenson ALT [Catalytic activity/Vol] 27 U/L Normal 16-63 Comment on above: Performed By: #### E RUR #### [facility] [address] [place] [address] Dr. Pratibha Stevenson Anion gap [Moles/Vol] 10.4 mmol/L Normal Comment on above: Performed By: #### E RUR #### [facility] [address] [place] [address] Dr. Pratibha Stevenson AST [Catalytic activity/Vol] 25 U/L Normal 15-37 Comment on above: Performed By: #### E RUR #### [facility] [address] [place] [address] Dr. Pratibha Stevenson Bilirubin [Mass/Vol] 0.5 mg/dL Normal 0.2-1.0 Comment on above: Performed By: #### E RUR #### [facility] [address] [place] [address] Dr. Pratibha Stevenson Calcium [Mass/Vol] 8.8 mg/dL Normal 8.5-10.1 [facility] Comment on above: Performed By: #### E RUR #### [facility] [address] [place] [address] Dr. Pratibha Stevenson Chloride [Moles/Vol] 105 mmol/L Normal 98-107 Comment on above: Performed By: #### E RUR #### [facility] [address] [place] [address] Dr. Pratibha Stevenson CO2 [Moles/Vol] 26.5 mmol/L Normal 21.0-32.0 [facility] Comment on above: Performed By: #### E RUR #### [facility] [address] [place] [address] Dr. Pratibha Stevenson Creatinine [Mass/Vol] 1.15 mg/dL Normal 0.70-1.30 Comment on above: Performed By: #### E RUR #### [facility] [address] [place] [address] Dr. Pratibha Stevenson EGFR-AF [place] >60 Normal >=60 [facility] Comment on above: Performed By: #### E RUR #### [facility] [address] [place] [address] Dr. Pratibha Stevenson EGFR-NON AF [place] >60 Normal >=60 [facility] Comment on above: Performed By: #### E RUR #### [facility] [address] [place] [address] Dr. Pratibha Stevenson Globulin (S) [Mass/Vol] 2.7 g/dL Normal Comment on above: Performed By: #### E RUR #### [facility] [address] [place] [address] Dr. Pratibha Stevenson Glucose [Mass/Vol] 119 mg/dL Critically high 74-[address] [facility] Comment on above: Performed By: #### E RUR #### [facility] [address] [place] [address] Dr. Pratibha Stevenson Potassium [Moles/Vol] 3.9 mmol/L Normal 3.5-5.1 Comment on above: Performed By: #### E RUR #### [facility] Laboratory [address] [place] [address] Dr. Pratibha Stevenson Protein [Mass/Vol] 6.0 g/dL Critically low 6.4-8.2 [facility] Comment on above: Performed By: #### E RUR #### [facility] [address] [place] [address] Dr. Pratibha Stevenson Sodium [Moles/Vol] 138 mmol/L Normal 136-145 [facility] [place] [facility] Comment on above: Performed By: #### E RUR #### [facility] [address] [place] [address] Dr. Pratibha Stevenson Urea nitrogen [Mass/Vol] 7.0 mg/dL Normal 7.0-18.0 Comment on above: Performed By: #### E RUR #### [facility] [address] [place] [address] Dr. Pratibha Stevenson Urea nitrogen/Creatinine [Mass ratio] 6.1 mg/mg Normal Comment on above: Performed By: #### E RUR #### [facility] [address] [place] [address] Dr. Pratibha Stevenson XR KUB 1 VIEWon 05-12-2022 XR KUB 1 VIEW EXAM: XR KUB 1 VIEW 05/11/2022 11:20 PM EST [id number] CLINICAL STATEMENT: Left flank pain COMPARISON: No prior studies are available at the time of dictation. TECHNIQUE: Two views of the abdomen are submitted. FINDINGS: Left-sided double nephroureteral stent. There is a nonobstructive bowel gas pattern. There is no intraperitoneal free air. There is no abnormal calcification or organomegaly detected. Bony elements are unremarkable. IMPRESSION: No evidence of bowel obstruction or free intraperitoneal air. Left-sided double nephroureteral stent. FOLLOW-UP: Follow-up as clinically indicated. Electronically authenticated by: ROSALINO VIDALES Date: 2022-05-12 06:43 Normal [facility] AMYLASEon 05-11-2022 Amylase [Catalytic activity/Vol] 52 U/L Normal 25-115 [facility] Comment on above: Performed By: #### C MP, GREG, LIPA #### [facility] [address] [place] [address] Dr. Pratibha Stevenson CBC AUTO DIFFon 05-11-2022 BASO # 0.0 103/ul Normal 0.0-0.1 Comment on above: Performed By: #### C BC #### [facility] [address] [place] [address] Dr. Pratibha Stevenson Basophils/100 WBC (Bld) 0.6 % Normal 0.2-2.0 Comment on above: Performed By: #### C BC #### [facility] [address] [place] [address] Dr. Pratibha Stevenson EO # 0.2 103/ul Normal 0.0-0.7 [facility] Comment on above: Performed By: #### C BC #### [facility] [address] [address] [address] Pratibha Stevenson Eosinophils/100 WBC (Bld) 2.3 % Normal 0.9-7.0 Comment on above: Performed By: #### C BC #### [facility] [address] [place] [address] Dr. Pratibha Stevenson Erythrocyte distribution width (RBC) [Ratio] 11.7 % Normal 11.0-15.0 [facility] Comment on above: Performed By: #### C BC #### [facility] [address] [place] [address] Dr. Pratibha Stevenson Hematocrit (Bld) [Volume fraction] 42.4 % Normal 42.0-54.0 Comment on above: Performed By: #### C BC #### [facility] [address] [place] [address] Dr. Pratibha Stevenson Hemoglobin (Bld) [Mass/Vol] 14.3 g/dL Normal 14.0-18.0 Comment on above: Performed By: #### C BC #### [facility] [address] [place] [address] Dr. Pratibha Stevenson IG # 0.01 10e3/ul Normal 0.00-0.03 Comment on above: Performed By: #### C BC #### [facility] [address] [place] [address] Dr. Pratibha Stevenson IG % 0.2 % Normal 0.0-0.5 Comment on above: Performed By: #### C BC #### [facility] [address] [place] [address] Dr. Pratibha Stevenson LYMPH # 2.8 103/ul Normal 1.2-3.8 Comment on above: Performed By: #### C BC #### [facility] [address] [place] [address] Dr. Pratibha Stevenson Lymphocytes/100 WBC (Bld) 41.8 % Normal 20.5-60.0 Comment on above: Performed By: #### C BC #### [facility] [address] [place] [address] Dr. Pratibha Stevenson MANUAL DIFF REQ NO Normal [facility] Comment on above: Performed By: #### C BC #### [facility] [address] [place] [address] Dr. Pratibha Stevenson MCH (RBC) [Entitic mass] 31.0 pg Normal 25.9-34.0 Comment on above: Performed By: #### C BC #### [facility] [address] [address] [address] Pratibha Stevenson MCHC (RBC) [Mass/Vol] 33.7 g/dL Normal 29.9-35.2 [facility] Comment on above: Performed By: #### C BC #### [facility] [address] [place] [address] Dr. Pratibha Stevenson MCV (RBC) [Entitic vol] 92.0 fL Normal 80.0-94.0 Comment on above: Performed By: #### C BC #### [facility] [address] [place] [address] Dr. Pratibha Stevenson MONO # 0.5 103/ul Normal 0.3-0.8 Comment on above: Performed By: #### C BC #### [facility] [address] [place] [address] Dr. Pratibha Stevenson Monocytes/100 WBC (Bld) 7.9 % Normal 1.7-12.0 Comment on above: Performed By: #### C BC #### [facility] [address] [place] [address] Dr. Pratibha Stevenson NEUT # 3.1 103/ul Normal 1.4-6.5 Comment on above: Performed By: #### C BC #### [facility] [address] [place] [address] Dr. Pratibha Stevenson Neutrophils/100 WBC (Bld) 47.2 % Normal 43.0-75.0 [facility] Comment on above: Performed By: #### C BC #### [facility] [address] [place] [address] Dr. Pratibha Stevenson Platelet mean volume (Bld) [Entitic vol] 10.7 fL Normal 9.5-13.5 [facility] Comment on above: Performed By: #### C BC #### [facility] [address] [place] [address] Dr. Pratibha Stevenson PLT 216 103/ul Normal 150-450 [facility] Comment on above: Performed By: #### C BC #### [facility] [address] [place], [place] [address] Dr. Pratibha Stevenson RBC 4.61 106/ul Critically low 4.70-6.10 [facility] Comment on above: Performed By: #### C BC #### [facility] [address] [place], [place] [address] Dr. Pratibha Stevenson WBC 6.6 103/ul Normal 4.0-11.0 [facility] Comment on above: Performed By: #### C BC #### [facility] [address] [place], [place] [address] ABD/PELVIS WO CONon 05-11 CT ABD/PELVIS WO CON EXAMINATION: CT ABD/PELVIS WO CON HISTORY: CALCULUS OF KIDNEY ;; bilateral flank pain COMPARISON: CT abdomen pelvis 05/08/2022 TECHNIQUE: Axial, Coronal, and Sagittal images were obtained without and/or with IV contrast as indicated by examination type. Dose reduction techniques were achieved by using automated exposure control and/or adjustment of mA and/or kV according to patient size and/or use of iterative reconstruction technique. FINDINGS: LUNG BASES: No visible pulmonary or pleural disease. LIVER: No enlargement, atrophy, suspicious density, or significant focal lesion. BILIARY: Dense material within gallbladder which is new since prior study; sequela of IV contrast uptake by liver versus inspissated sludge. PANCREAS: No lesion, fluid collection, or abnormal duct dilatation. SPLEEN: No enlargement or focal lesion. ADRENALS: No mass or enlargement. KIDNEYS: 4 mm nonobstructing stone within proximal left ureter. A few tiny nonobstructing stones within kidneys, unchanged. BOWEL/MESENTERY: Mild diverticulosis of distal colon without acute inflammatory changes. No visible mass, obstruction, or bowel wall thickening. Normal appendix. AORTA/VASCULAR: No aneurysm or dissection. RETROPERITONEUM: No mass or adenopathy. LYMPH NODES: No adenopathy. URINARY BLADDER: No visible focal wall thickening, lesion, or calculus. PELVIC ORGANS: No visible mass. Pelvic organs appropriate for patient age. ABDOMINAL WALL: No mass or hernia. BONES: No bony lesion or fracture. OTHER: Negative. IMPRESSION: 1. There is a 4 mm nonobstructing stone within proximal left ureter with minimal forward migration since prior study. 2. Bilateral nonobstructing nephrolithiasis. 3. Mild colonic diverticulosis. No acute findings. Electronically authenticated by: SAUMYA MARSH Date: 2022-05-11 08:31 Normal [facility] LIPASEon 05-11-2022 Lipase [Catalytic activity/Vol] 241.0 U/L Normal 73.0-393.0 Comment on above: Performed By: #### C MP, GREG, LIPA #### [facility] [address] [place] [address] Dr. Pratibha Stevenson PROF 14(COMP METB)on 023 Albumin [Mass/Vol] 3.6 g/dL Normal 3.4-5.0 [facility] [place] [facility] Comment on above: Performed By: #### C MP GREG, LIPA #### [facility] [address] [place] [address] Dr. Pratibha Stevenson Albumin/Globulin [Mass ratio] 1.2 {ratio} Normal Comment on above: Performed By: #### C MP, GREG, LIPA #### [facility] [address] [place] [address] Dr. Pratibha Stevenson ALP [Catalytic activity/Vol] 75 U/L Normal 46-116 Comment on above: Performed By: #### C MP GREG, LIPA #### [facility] [address] [place] [address] Dr. Pratibha Stevenson ALT [Catalytic activity/Vol] 28 U/L Normal 16-63 Comment on above: Performed By: #### C MP GREG, LIPA #### [facility] [address] [place] [address] Dr. Pratibha Stevenson Anion gap [Moles/Vol] 9.7 mmol/L Normal Comment on above: Performed By: #### C MP, GREG, LIPA #### [facility] [address] [place] [address] Dr. Pratibha Stevenson AST [Catalytic activity/Vol] 19 U/L Normal 15-37 Comment on above: Performed By: #### C MP, GREG, LIPA #### [facility] [address] [address] [address] Pratibha Stevenson Bilirubin [Mass/Vol] 0.5 mg/dL Normal 0.2-1.0 Comment on above: Performed By: #### C WENDY GREG, LIPA #### [facility] [address] [place] [address] Dr. Pratibha Stevenson Calcium [Mass/Vol] 9.1 mg/dL Normal 8.5-10.1 [facility] [place] [facility] Comment on above: Performed By: #### C MP GREG, LIPA #### [facility] [address] [place] [address] Dr. Pratibha Stevenson Chloride [Moles/Vol] 104 mmol/L Normal 98-107 Comment on above: Performed By: #### C WENDY GREG, LIPA #### [facility] [address] [place] [address] Dr. Pratibha Stevenson CO2 [Moles/Vol] 29.3 mmol/L Normal 21.0-32.0 [facility] Comment on above: Performed By: #### C WENDY GREG, LIPA #### [facility] [address] [place] [address] Dr. Pratibha Stevenson Creatinine [Mass/Vol] 1.21 mg/dL Normal 0.70-1.30 Comment on above: Performed By: #### C WENDY GREG, LIPA #### [facility] [address] [place] [address] Dr. Pratibha Stevenson EGFR-AF [place] >60 Normal >=60 [facility] Comment on above: Performed By: #### C MP, GREG, LIPA #### [facility] [address] [place] [address] Dr. Pratibha Stevenson EGFR-NON AF [place] >60 Normal >=60 Comment on above: Performed By: #### C MP, GREG, LIPA #### [facility] [address] [place] [address] Dr. Pratibha Stevenson Globulin (S) [Mass/Vol] 3.1 g/dL Normal [facility] Comment on above: Performed By: #### C MP, GREG, LIPA #### [facility] [address] [address] [address] Pratibha Stveenson Glucose [Mass/Vol] 88 mg/dL Normal 74-106 [facility] [place] [facility] Comment on above: Performed By: #### C MP, GREG, LIPA #### [facility] [address] [place] [address] Dr. Pratibha Stevenson Potassium [Moles/Vol] 4.0 mmol/L Normal 3.5-5.1 Comment on above: Performed By: #### C MP, GREG, LIPA #### [facility] [address] [place] [address] Dr. Pratibha Stevenson Protein [Mass/Vol] 6.7 g/dL Normal 6.4-8.2 [facility] Comment on above: Performed By: #### C MP, GREG, LIPA #### [facility] [address] [place] [address] Dr. Pratibha Stevenson Sodium [Moles/Vol] 139 mmol/L Normal 136-145 [facility] Comment on above: Performed By: #### C MP GREG, LIPA #### [facility] [address] [place] [address] Dr. Pratibha Stevenson Urea nitrogen [Mass/Vol] 8.0 mg/dL Normal 7.0-18.0 Comment on above: Performed By: #### C WENDY GREG, LIPA #### [facility] [address] [place] [address] Dr. Pratibha Stevenson Urea nitrogen/Creatinine [Mass ratio] 6.6 mg/mg Normal Comment on above: Performed By: #### C MP, GREG, LIPA #### [facility] [address] [place] [address] Dr. Pratibha Stevenson XR KUB 1 VIEWon 05-11-2022 XR KUB 1 VIEW EXAM: XR KUB 1 VIEW HISTORY: Left flank pain, follow-up COMPARISON: KUB and ultrasound 05/10/2022, 05/09/2022, CT 05/08/2022 TECHNIQUE: Abdomen one view supine. FINDINGS: Kidneys are partially obscured by bowel gas with subcentimeter bilateral renal calculi again suggested, most conspicuous on the left. Previously seen 5 mm calculus along the course of the left ureter is not clearly redemonstrated by this exam. Nonspecific likely nonobstructive bowel gas pattern. No gross pneumoperitoneum suggested in the limits of supine radiography. Osseous structures appear grossly unchanged. IMPRESSION: 1. Kidneys are partially obscured by bowel gas with subcentimeter bilateral renal calculi again suggested, most conspicuous on the left. 2. Previously seen 5 mm calculus along the course of the left ureter is not clearly redemonstrated by this exam. FOLLOW-UP: Follow-up as clinically warranted. Electronically authenticated by: MAUREEN GARDNER Date: 2022-05-11 06:36 Normal [facility] AMYLASEon 05-10-2022 Amylase [Catalytic activity/Vol] 41 U/L Normal 25-115 [facility] Comment on above: Performed By: #### L ACT #### [facility] [address] [place] [address] Dr. Pratibha Stevenson CBC AUTO DIFFon 05-10-2022 BASO # 0.0 103/ul Normal 0.0-0.1 Comment on above: Performed By: #### L ACT #### [facility] [address] [place] [address] Dr. Pratibha Stevenson Basophils/100 WBC (Bld) 0.7 % Normal 0.2-2.0 Comment on above: Performed By: #### L ACT #### [facility] [address] [place] [address] Dr. Pratibha Stevenson EO # 0.2 103/ul Normal 0.0-0.7 [facility] Comment on above: Performed By: #### L ACT #### [facility] [address] [place] [address] Dr. Pratibha Stevenson Eosinophils/100 WBC (Bld) 2.8 % Normal 0.9-7.0 [facility] Comment on above: Performed By: #### L ACT #### [facility] [address] [place] [address] Dr. Pratibha Stevenson Erythrocyte distribution width (RBC) [Ratio] 11.8 % Normal 11.0-15.0 Comment on above: Performed By: #### L ACT #### [facility] [address] [place] [address] Dr. Pratibha Stevenson Hematocrit (Bld) [Volume fraction] 38.8 % Critically low 42.0-54.0 Comment on above: Performed By: #### L ACT #### [facility] [address] [place] [address] Dr. Pratibha Stevenson Hemoglobin (Bld) [Mass/Vol] 13.3 g/dL Critically low 14.0-18.0 Comment on above: Performed By: #### L ACT #### [facility] [address] [place] [address] Dr. Pratibha Stevenson IG # 0.02 10e3/ul Normal 0.00-0.03 Comment on above: Performed By: #### L ACT #### [facility] [address] [place] [address] Dr. Pratibha Stevenson IG % 0.3 % Normal 0.0-0.5 Comment on above: Performed By: #### L ACT #### [facility] [address] [place] [address] Dr. Pratibha Stevenson LYMPH # 2.1 103/ul Normal 1.2-3.8 Comment on above: Performed By: #### L ACT #### [facility] [address] [place] [address] Dr. Pratibha Stevenson Lymphocytes/100 WBC (Bld) 35.3 % Normal 20.5-60.0 Comment on above: Performed By: #### L ACT #### [facility] [address] [place] [address] Dr. Pratibha Stevenson MANUAL DIFF REQ NO Normal [facility] Comment on above: Performed By: #### L ACT #### [facility] [address] [place] [address] Dr. Pratibha Stevenson MCH (RBC) [Entitic mass] 30.7 pg Normal 25.9-34.0 Comment on above: Performed By: #### L ACT #### [facility] [address] [address] [address] Pratibha Stevenson MCHC (RBC) [Mass/Vol] 34.3 g/dL Normal 29.9-35.2 Comment on above: Performed By: #### L ACT #### [facility] [address] [address] [address] Pratibha Stevenson MCV (RBC) [Entitic vol] 89.6 fL Normal 80.0-94.0 Comment on above: Performed By: #### L ACT #### [facility] [address] [address] [address] Pratibha Stevenson MONO # 0.4 103/ul Normal 0.3-0.8 Comment on above: Performed By: #### L ACT #### [facility] [address] [place] [address] Dr. Pratibha Stevenson Monocytes/100 WBC (Bld) 7.4 % Normal 1.7-12.0 Comment on above: Performed By: #### L ACT #### [facility] [address] [address] [address] Pratibha Stevenson NEUT # 3.1 103/ul Normal 1.4-6.5 Comment on above: Performed By: #### L ACT #### [facility] [address] [place] [address] Dr. Pratibha Stevenson Neutrophils/100 WBC (Bld) 53.5 % Normal 43.0-75.0 [facility] Comment on above: Performed By: #### L ACT #### [facility] [address] [address] [address] Pratibha Stevenson Platelet mean volume (Bld) [Entitic vol] 10.2 fL Normal 9.5-13.5 Comment on above: Performed By: #### L ACT #### [facility] [address] [address] [address] Pratibha Stevenson PLT 197 103/ul Normal 150-450 [facility] Comment on above: Performed By: #### L ACT #### [facility] [address] [address] [address] Pratibha Stevenson RBC 4.33 106/ul Critically low 4.70-6.10 [facility] Comment on above: Performed By: #### L ACT #### [facility] [address] [place] [address] Dr. Pratibha Stevenson WBC 5.8 103/ul Normal 4.0-11.0 Comment on above: Performed By: #### L ACT #### [facility] [address] [place] [address] Dr. Pratibha Stevenson LIPASEon 05-10-2022 Lipase [Catalytic activity/Vol] 134.0 U/L Normal 73.0-393.0 Comment on above: Performed By: #### L ACT #### [facility] [address] [place] [address] Dr. Pratibha Stevenson PROF 14(COMP METB)on 023 Albumin [Mass/Vol] 3.1 g/dL Critically low 3.4-5.0 [facility] Comment on above: Performed By: #### L ACT #### [facility] [address] [place] [address] Dr. Pratibha Stevenson Albumin/Globulin [Mass ratio] 1.1 {ratio} Normal Comment on above: Performed By: #### L ACT #### [facility] [address] [place] [address] Dr. Pratibha Stevenson ALP [Catalytic activity/Vol] 68 U/L Normal 46-116 Comment on above: Performed By: #### L ACT #### [facility] [address] [place] [address] Dr. Pratibha Stevenson ALT [Catalytic activity/Vol] 25 U/L Normal 16-63 Comment on above: Performed By: #### L ACT #### [facility] [address] [place] [address] Dr. Pratibha Stevenson Anion gap [Moles/Vol] 11.1 mmol/L Normal Comment on above: Performed By: #### L ACT #### [facility] [address] [address] [address] Pratibha Stevenson AST [Catalytic activity/Vol] 16 U/L Normal 15-37 Comment on above: Performed By: #### L ACT #### [facility] [address] [address] [address] Pratibha Stevenson Bilirubin [Mass/Vol] 0.5 mg/dL Normal 0.2-1.0 Comment on above: Performed By: #### L ACT #### [facility] [address] [address] [address] Pratibha Stevenson Calcium [Mass/Vol] 8.6 mg/dL Normal 8.5-10.1 [facility] [place] [facility] Comment on above: Performed By: #### L ACT #### [facility] [address] [place] [address] Dr. Pratibha Stevenson Chloride [Moles/Vol] 105 mmol/L Normal 98-107 Comment on above: Performed By: #### L ACT #### [facility] [address] [address] [address] Prtaibha Stevenson CO2 [Moles/Vol] 26.6 mmol/L Normal 21.0-32.0 [facility] Comment on above: Performed By: #### L ACT #### [facility] [address] [address] [address] Pratibha Stevenson Creatinine [Mass/Vol] 1.12 mg/dL Normal 0.70-1.30 Comment on above: Performed By: #### L ACT #### [facility] [address] [address] [address] Pratibha Stevenson EGFR-AF [place] >60 Normal >=60 [facility] Comment on above: Performed By: #### L ACT #### [facility] [address] [address] [address] Pratibha Stevenson EGFR-NON AF [place] >60 Normal >=60 Comment on above: Performed By: #### L ACT #### [facility] [address] [address] [address] Pratibha Stevenson Globulin (S) [Mass/Vol] 2.7 g/dL Normal Comment on above: Performed By: #### L ACT #### [facility] [address] [place] [address] Dr. Pratibha Stevenson Glucose [Mass/Vol] 86 mg/dL Normal 74-106 [facility] [place] [facility] Comment on above: Performed By: #### L ACT #### [facility] [address] [place] [address] Dr. Pratibha Stevenson Potassium [Moles/Vol] 3.7 mmol/L Normal 3.5-5.1 Comment on above: Performed By: #### L ACT #### [facility] [address] [place] [address] Dr. Pratibha Stevenson Protein [Mass/Vol] 5.8 g/dL Critically low 6.4-8.2 [facility] Comment on above: Performed By: #### L ACT #### [facility] [address] [place] [address] Dr. Pratibha Stevenson Sodium [Moles/Vol] 139 mmol/L Normal 136-145 [facility] [place] [facility] Comment on above: Performed By: #### L ACT #### [facility] [address] [place] [address] Dr. Pratibha Stevenson Urea nitrogen [Mass/Vol] 12.0 mg/dL Normal 7.0-18.0 Comment on above: Performed By: #### L ACT #### [facility] [address] [place] [address] Dr. Pratibha Stevenson Urea nitrogen/Creatinine [Mass ratio] 10.7 mg/mg Normal Comment on above: Performed By: #### L ACT #### [facility] [address] [place], [place] [id number] Dr. Pratibha Stevenson US KIDNEYSon 05-10-2022 US KIDNEYS EXAMINATION: US KIDNEYS HISTORY: Kidney stone ; bilateral flank pain COMPARISON: No relevant comparison available. TECHNIQUE: Ultrasound examination was performed of the kidneys and urinary bladder. FINDINGS: RIGHT KIDNEY: Contains several nonobstructing stones, largest is in superior pole, 6 mm. No mass or hydronephrosis. Normal renal cortical parenchymal echogenicity. Color Doppler demonstrates blood flow within the kidney. Kidney: 9.1 x 5.6 x 5.0 cm LEFT KIDNEY: Contains several nonobstructing stones, largest is in inferior pole, 8 mm. Normal renal cortical parenchymal echogenicity. Color Doppler demonstrates blood flow within the kidney. Kidney: 11.0 x 5.3 x 5.2 cm BLADDER: No visible wall thickening, mass, or calculi. IMPRESSION: 1. Bilateral nonobstructing nephrolithiasis. No appreciable acute findings. Electronically authenticated by: SAUMYA MARSH Date: 2022-05-10 08:37 Normal [facility] XR KUB 1 VIEWon 05-10-2022 XR KUB 1 VIEW EXAM: XR KUB 1 VIEW HISTORY: Left flank pain COMPARISON: KUB 05/09/2022, CT 05/08/2022 TECHNIQUE: Abdomen one view supine. FINDINGS: Previously seen 5 mm calculus in the left ureter at the L3 level appears to again be present not significantly changed in position. Kidneys are partially obscured by bowel gas with subcentimeter bilateral renal calculi again suggested, most conspicuous on the left. Nonspecific likely nonobstructive bowel gas pattern. No gross pneumoperitoneum suggested in the limits of supine radiography. Visualized osseous structures appear grossly unchanged. IMPRESSION: Previously seen 5 mm calculus in the left ureter at the L3 level appears to again be present not significantly changed in position. Kidneys are partially obscured by bowel gas with subcentimeter bilateral renal calculi again suggested, most conspicuous on the left. FOLLOW-UP: Follow-up as clinically warranted. Electronically authenticated by: MAUREEN GARDNER Date: 2022-05-10 06:55 Normal [facility] AMYLASEon 05-09-2022 Amylase [Catalytic activity/Vol] 44 U/L Normal 25-115 [facility] Comment on above: Performed By: #### C BC #### [facility] [address] [place], [place] [address] Dr. Pratibha Stevenson CBC AUTO DIFFon 05-09-2022 BASO # 0.1 103/ul Normal 0.0-0.1 Comment on above: Performed By: #### S SCRN, GRASTCX #### [facility] [address] [place] [address] Dr. Pratibha Stevenson Basophils/100 WBC (Bld) 0.9 % Normal 0.2-2.0 [facility] Comment on above: Performed By: #### S SCRN, GRASTCX #### [facility] [address] [place] [address] Dr. Pratibha Stevenson EO # 0.2 103/ul Normal 0.0-0.7 [facility] Comment on above: Performed By: #### S SCRN, GRASTCX #### [facility] [address] [place] [address] Dr. Pratibha Stevenson Eosinophils/100 WBC (Bld) 2.6 % Normal 0.9-7.0 [facility] Comment on above: Performed By: #### S SCRN, GRASTCX #### [facility] [address] [place] [address] Dr. Pratibha Stevenson Erythrocyte distribution width (RBC) [Ratio] 11.9 % Normal 11.0-15.0 Comment on above: Performed By: #### S SCRN, GRASTCX #### [facility] [address] [place] [address] Dr. Pratibha Stevenson Hematocrit (Bld) [Volume fraction] 38.8 % Critically low 42.0-54.0 Comment on above: Performed By: #### S SCRN, GRASTCX #### [facility] [address] [place] [address] Dr. Pratibha Stevenson Hemoglobin (Bld) [Mass/Vol] 13.9 g/dL Critically low 14.0-18.0 [facility] Comment on above: Performed By: #### S SCRN, GRASTCX #### [facility] [address] [place] [address] Dr. Pratibha Stevenson IG # 0.02 10e3/ul Normal 0.00-0.03 Comment on above: Performed By: #### S SCRN, GRASTCX #### [facility] [address] [place] [address] Dr. Pratibha Stevenson IG % 0.4 % Normal 0.0-0.5 Comment on above: Performed By: #### S JOSE ARMANDO GRASTCX #### [facility] [address] [place] [address] Dr. Pratibha Stevenson LYMPH # 2.0 103/ul Normal 1.2-3.8 Comment on above: Performed By: #### S SCRN GRASTCX #### [facility] [address] [place] [address] Dr. Pratibha Stevenson Lymphocytes/100 WBC (Bld) 34.9 % Normal 20.5-60.0 [facility] Comment on above: Performed By: #### S JOSE ARMANDO GRASTCX #### [facility] [address] [place] [address] Dr. Pratibha Stevenson MANUAL DIFF REQ NO Normal [facility] Comment on above: Performed By: #### S JOSE ARMANDO GRASTCX #### [facility] [address] [place] [address] Dr. Pratibha Stevenson MCH (RBC) [Entitic mass] 31.0 pg Normal 25.9-34.0 [facility] Comment on above: Performed By: #### S JOSE ARMANDO GRASTCX #### [facility] [address] [place] [address] Dr. Pratibha Stevenson MCHC (RBC) [Mass/Vol] 35.8 g/dL Critically high 29.9-35.2 [facility] Comment on above: Performed By: #### S JOSE ARMANDO, GRASTCX #### [facility] [address] [place] [address] Dr. Pratibha Stevenson MCV (RBC) [Entitic vol] 86.6 fL Normal 80.0-94.0 [facility] Comment on above: Performed By: #### S SCRTian GRASTCX #### [facility] [address] [place] [address] Dr. Pratibha Stevenson MONO # 0.4 103/ul Normal 0.3-0.8 [facility] Comment on above: Performed By: #### S SCRTian, GRASTCX #### [facility] [address] [place] [address] Dr. Pratibha Stevenson Monocytes/100 WBC (Bld) 6.2 % Normal 1.7-12.0 [facility] Comment on above: Performed By: #### S SCRN, GRASTCX #### [facility] [address] [place] [address] Dr. Pratibha Stevenson NEUT # 3.1 103/ul Normal 1.4-6.5 [facility] Comment on above: Performed By: #### S SCRN, GRASTCX #### [facility] [address] [place] [address] Dr. Pratibha Stevenson Neutrophils/100 WBC (Bld) 55.0 % Normal 43.0-75.0 [facility] Comment on above: Performed By: #### S SCRN, GRASTCX #### [facility] [address] [place] [address] Dr. Pratibha Stevenson Platelet mean volume (Bld) [Entitic vol] 9.7 fL Normal 9.5-13.5 Comment on above: Performed By: #### S SCRN, GRASTCX #### [facility] [address] [place] [address] Dr. Pratibha Stevenson PLT 201 103/ul Normal 150-450 [facility] Comment on above: Performed By: #### S SCRN, GRASTCX #### [facility] [address] [place] [address] Dr. Pratibha Stevenson RBC 4.48 106/ul Critically low 4.70-6.10 [facility] Comment on above: Performed By: #### S SCRN, GRASTCX #### [facility] [address] [place] [address] Dr. Pratibha Stevenson WBC 5.7 103/ul Normal 4.0-11.0 [facility] Comment on above: Performed By: #### S SCRN, GRASTCX #### [facility] [address] [place] [address] Dr. Pratibha Stevenson CULTURE URINEon 05-09-2022 CULTURE URINE Culture Observations : NO GROWTH. Normal [facility] Comment on above: Performed By: #### C BC #### [facility] [address] [place] [address] Dr. Pratibha Stevenson LIPASEon 05-09-2022 Lipase [Catalytic activity/Vol] 98.0 U/L Normal 73.0-393.0 Comment on above: Performed By: #### C BC #### [facility] [address] [place] [address] Dr. Pratibha Stevenson PROF 14(COMP METB)on 023 Albumin [Mass/Vol] 3.2 g/dL Critically low 3.4-5.0 [facility] Comment on above: Performed By: #### C BC #### [facility] [address] [place] [address] Dr. Pratibha Stevenson Albumin/Globulin [Mass ratio] 1.3 {ratio} Normal Comment on above: Performed By: #### C BC #### [facility] [address] [place] [address] Dr. Pratibha Stevenson ALP [Catalytic activity/Vol] 74 U/L Normal 46-116 Comment on above: Performed By: #### C BC #### [facility] [address] [place] [address] Dr. Pratibha Stevenson ALT [Catalytic activity/Vol] 25 U/L Normal 16-63 Comment on above: Performed By: #### C BC #### [facility] [address] [place] [address] Dr. Pratibha Stevenson Anion gap [Moles/Vol] 10.7 mmol/L Normal Comment on above: Performed By: #### C BC #### [facility] [address] [place] [address] Dr. Pratibha Stevenson AST [Catalytic activity/Vol] 18 U/L Normal 15-37 Comment on above: Performed By: #### C BC #### [facility] [address] [place] [address] Dr. Pratibha Stevenson Bilirubin [Mass/Vol] 0.7 mg/dL Normal 0.2-1.0 Comment on above: Performed By: #### C BC #### [facility] [address] [place] [address] [address] Pratibha Stevenson Calcium [Mass/Vol] 8.5 mg/dL Normal 8.5-10.1 [facility] Comment on above: Performed By: #### C BC #### [facility] [address] [place] [address] [address] Pratibha Stevenson Chloride [Moles/Vol] 106 mmol/L Normal 98-107 [facility] Comment on above: Performed By: #### C BC #### [facility] [address] [address] [address] Pratibha Stevenson CO2 [Moles/Vol] 27.1 mmol/L Normal 21.0-32.0 [facility] Comment on above: Performed By: #### C BC #### [facility] [address] [place] [address] Dr. Pratibha Stevenson Creatinine [Mass/Vol] 1.16 mg/dL Normal 0.70-1.30 Comment on above: Performed By: #### C BC #### [facility] [address] [address] [address] Pratibha Stevenson EGFR-AF [place] >60 Normal >=60 [facility] Comment on above: Performed By: #### C BC #### [facility] [address] [place] [address] Dr. Pratibha Stevenson EGFR-NON AF [place] >60 Normal >=60 [facility] Comment on above: Performed By: #### C BC #### [facility] [address] [place] [address] Dr. Pratibha Stevenson Globulin (S) [Mass/Vol] 2.5 g/dL Normal Comment on above: Performed By: #### C BC #### [facility] [address] [place] [address] Dr. Pratibha Stevenson Glucose [Mass/Vol] 90 mg/dL Normal 74-106 [facility] Comment on above: Performed By: #### C BC #### [facility] [address] [address] [address] Pratibha Stevenson Potassium [Moles/Vol] 3.8 mmol/L Normal 3.5-5.1 Comment on above: Performed By: #### C BC #### [facility] [address] [address] [address] Pratibha Stevenson Protein [Mass/Vol] 5.7 g/dL Critically low 6.4-8.2 [facility] Comment on above: Performed By: #### C BC #### [facility] [address] [address] [address] Pratibha Stevenson Sodium [Moles/Vol] 140 mmol/L Normal 136-145 [facility] [place] [facility] Comment on above: Performed By: #### C BC #### [facility] [address] [place] [address] Dr. Pratibha Stevenson Urea nitrogen [Mass/Vol] 12.0 mg/dL Normal 7.0-18.0 Comment on above: Performed By: #### C BC #### [facility] [address] [place] [address] Dr. Pratibha Stevenson Urea nitrogen/Creatinine [Mass ratio] 10.3 mg/mg Normal Comment on above: Performed By: #### C BC #### [facility] [address] [place] [address] Dr. Pratibha Stevenson XR KUB 1 VIEWon 05-09-2022 XR KUB 1 VIEW EXAM: XR KUB 1 VIEW HISTORY: Left flank pain COMPARISON: CT abdomen pelvis 05/08/2022 TECHNIQUE: Single frontal view of abdominal KUB, 2 images FINDINGS: Contrast seen within the left renal pelvis and left proximal ureter. 8 mm left inferior renal stone. Others smaller bilateral renal stones. The previously seen 5 mm left mid ureteral stone is likely near the L3 level given the left ureter contrast terminates at the L3 level. No dilated small bowel silhouette or air-fluid levels. No acute bony abnormality. IMPRESSION: 8 mm left inferior renal stone. Others smaller bilateral renal stones. The previously seen 5 mm left mid ureteral stone is likely near the L3 level on current exam given the left ureter contrast terminates at the L3 level. Electronically authenticated by: EDIS HERNÁNDEZ Date: 2022-05-09 05:31 Normal [facility] CBC AUTO DIFFon 05-08-2022 BASO # 0.1 103/ul Normal 0.0-0.1 Comment on above: Performed By: #### C BC #### [facility] [address] [address] [address] Pratibha Stevenson Basophils/100 WBC (Bld) 0.4 % Normal 0.2-2.0 Comment on above: Performed By: #### C BC #### [facility] [address] [address] [address] Pratibha Stevenson EO # 0.1 103/ul Normal 0.0-0.7 Comment on above: Performed By: #### C BC #### [facility] [address] [address] [address] Pratibha Stevenson Eosinophils/100 WBC (Bld) 1.0 % Normal 0.9-7.0 Comment on above: Performed By: #### C BC #### [facility] [address] [address] [address] Pratibha Stevenosn Erythrocyte distribution width (RBC) [Ratio] 11.9 % Normal 11.0-15.0 Comment on above: Performed By: #### C BC #### [facility] [address] [place] [address] Dr. Pratibha Stevenson Hematocrit (Bld) [Volume fraction] 47.4 % Normal 42.0-54.0 Comment on above: Performed By: #### C BC #### [facility] [address] [address] [address] Pratibha Stevenson Hemoglobin (Bld) [Mass/Vol] 17.3 g/dL Normal 14.0-18.0 Comment on above: Performed By: #### C BC #### [facility] [address] [address] [address] Pratibha Stevenson IG # 0.05 10e3/ul Critically high 0.00-0.03 [facility] Comment on above: Performed By: #### C BC #### [facility] [address] [place] [address] Dr. Pratibha Stevenson IG % 0.4 % Normal 0.0-0.5 Comment on above: Performed By: #### C BC #### [facility] [address] [place] [address] Dr. Pratibha Stevenson LYMPH # 2.4 103/ul Normal 1.2-3.8 [facility] Comment on above: Performed By: #### C BC #### [facility] [address] [place] [address] Dr. Pratibha Stevenson Lymphocytes/100 WBC (Bld) 18.6 % Critically low 20.5-60.0 Comment on above: Performed By: #### C BC #### [facility] [address] [place] [address] Dr. Pratibha Stevenson MANUAL DIFF REQ NO Normal [facility] Comment on above: Performed By: #### C BC #### [facility] [address] [place] [address] Dr. Pratibha Stevenson MCH (RBC) [Entitic mass] 31.3 pg Normal 25.9-34.0 Comment on above: Performed By: #### C BC #### [facility] [address] [place] [address] Dr. Pratibha Stevenson MCHC (RBC) [Mass/Vol] 36.5 g/dL Critically high 29.9-35.2 [facility] Comment on above: Performed By: #### C BC #### [facility] [address] [place] [address] Dr. Pratibha Stevenson MCV (RBC) [Entitic vol] 85.7 fL Normal 80.0-94.0 [facility] Comment on above: Performed By: #### C BC #### [facility] [address] [place] [address] Dr. Pratibha Stevenson MONO # 0.6 103/ul Normal 0.3-0.8 [facility] Comment on above: Performed By: #### C BC #### [facility] [address] [place] [address] Dr. Pratibha Stevenson Monocytes/100 WBC (Bld) 5.0 % Normal 1.7-12.0 [facility] Comment on above: Performed By: #### C BC #### [facility] [address] [place] [address] Dr. Pratibha Stevenson NEUT # 9.6 103/ul Critically high 1.4-6.5 [facility] Comment on above: Performed By: #### C BC #### [facility] [address] [place] [address] Dr. Pratibha Stevenson Neutrophils/100 WBC (Bld) 74.6 % Normal 43.0-75.0 [facility] Comment on above: Performed By: #### C BC #### [facility] [address] [place] [address] Dr. Pratibha Stevenson Platelet mean volume (Bld) [Entitic vol] 9.6 fL Normal 9.5-13.5 [facility] Comment on above: Performed By: #### C BC #### [facility] [address] [place] [address] Dr. Pratibha Stevenson PLT 286 103/ul Normal 150-450 [facility] Comment on above: Performed By: #### C BC #### [facility] [address] [place] [address] Dr. Pratibha Stevenson RBC 5.53 106/ul Normal 4.70-6.10 [facility] Comment on above: Performed By: #### C BC #### [facility] [address] [place] [address] Dr. Pratibha Stevenson WBC 12.8 103/ul Critically high 4.0-11.0 [facility] Comment on above: Performed By: #### C BC #### [facility] [address] [place], [place] [id number] Dr. Pratibha Stevenson CT ABD/PELV W CONon 05-08-19 CT ABD/PELV W CON EXAM: CT ABD/PELV W CON Comparison: 03/22/2022 CLINICAL INDICATION: Left flank pain. TECHNIQUE: Axial images through the abdomen and pelvis were obtained with intravenous contrast. Coronal and sagittal reconstructions were obtained. Dose reduction techniques were achieved by using automated exposure control and/or adjustment of mA and/or kV according to patient size and/or use of iterative reconstruction technique. CONTRAST: 100 mL of Omnipaque 300 was administered intravenously. FINDINGS: LOWER CHEST: The visualized portions of the lung bases are clear. LIVER: Hepatomegaly up to 21 cm. GALLBLADDER: Unremarkable. BILE DUCTS: Unremarkable. PANCREAS: Unremarkable. SPLEEN: Unremarkable. ADRENALS: Unremarkable. KIDNEYS/URETERS: 5 mm left proximal ureteral stone at the L3 level resulting in mild left hydroureteronephrosis. Nonobstructing bilateral kidney stones measuring up to 8mm on the right. BLADDER: Bladder is decompressed. Mild circumferential bladder wall thickening. No bladder stones. PELVIC STRUCTURES: Unremarkable. GI TRACT: Evaluation of bowel limited by fecal contents and lack of distention. No evidence of bowel obstruction. Normal appendix. Nonspecific fatty infiltration of the wall of the colon again seen. VASCULAR STRUCTURES: Unremarkable. LYMPH NODES: No pathologic lymphadenopathy by CT size criteria. PERITONEUM: No free air. No abscess. SOFT TISSUES: Trace fat-containing umbilical hernia. OSSEOUS STRUCTURES: No acute osseous abnormality. No suspicious osseous lesions. IMPRESSION: 5 mm left proximal ureteral stone at the L3 level resulting in mild left hydroureteronephrosis. Nonobstructing bilateral kidney stones measuring up to 8mm on the right. Mild circumferential bladder wall thickening. May suggest cystitis or may relate to lack of distention. Correlate with urinalysis. Normal appendix. Hepatomegaly. Nonspecific fatty infiltration of the wall of the colon again seen. Again can be seen in the setting of chronic inflammatory change. No acute intestinal inflammatory change on today's exam. Electronically authenticated by: CHAGO ROLLINS Date: 2022-05-08 18:37 Normal [facility]on SARS-CoV-2 (COVID-19) RNA MARIKA+probe Ql (Unsp spec) Not detected Normal NOT DETECTED [facility] Comment on above: Result Comment: When diagnostic testing is negative, the possibility of a false negative should be considered in the context of a patient's recent exposures and the presence of clinical signs and symptoms consistent with SARS-CoV-2. This test is not yet approved or cleared by the [place] FDA. When there are no FDA-approved or cleared tests available, and other criteria are met, FDA can make tests available under an emergency access mechanism called an Emergency Use Authorization (EUA). The EUA for this test is supported by the [place] of Health and Human Service's declaration that circumstances exist to justify the emergency use of in vitro diagnostics for the detection and/or diagnosis of the virus that causes COVID-19. This EUA will remain in effect for the duration of the COVID-19 declaration justifying emergency of IVDs, unless it is terminated or revoked by the FDA (after which the test may no longer be used). Performed By: #### C BC #### [facility] [address] [place] [address] Dr. Pratibha Stevenson ER URINE PROFILEon 3 Bilirubin Ql (U) SMALL Abnormal NEGATIVE [facility] Comment on above: Performed By: #### C BC #### [facility] [address] [place] [address] Dr. Pratibha Stevenson Clarity (U) CLEAR Normal CLEAR [facility] Comment on above: Performed By: #### C BC #### [facility] [address] [place] [address] Dr. Pratibha Stevenson Color (U) DK. ORANGE Abnormal YELLOW [facility] Comment on above: Performed By: #### C BC #### [facility] [address] [place] [address] Dr. Pratibha RIOS A micrscopic examination will be performed if indicated. Normal [facility] Comment on above: Performed By: #### C BC #### [facility] [address] [place] [address] Dr. Pratibha Stevenson Glucose Ql (U) Negative Normal NEGATIVE [facility] Comment on above: Performed By: #### C BC #### [facility] [address] [place] [address] Dr. Pratibha Stevenson Hemoglobin Ql (U) LARGE Abnormal NEGATIVE The [facility] Comment on above: Performed By: #### C BC #### [facility] [address] [place] [address] Dr. Pratibha Stevenson Ketones Ql (U) TRACE Abnormal NEGATIVE [facility] Comment on above: Performed By: #### C BC #### [facility] [address] [place] [address] Dr. Pratibha Stevenson LEUKOCYTES Negative Normal NEGATIVE Comment on above: Performed By: #### C BC #### [facility] [address] [place] [address] Dr. Pratibha Stevenson Nitrite Ql (U) Negative Normal NEGATIVE [facility] Comment on above: Performed By: #### C BC #### [facility] [address] [place] [address] Dr. Pratibha Stevenson pH (U) 6.5 [pH] Normal 5-9 Comment on above: Performed By: #### C BC #### [facility] [address] [place] [address] Dr. Pratibha Stevenson Protein (U) [Mass/Vol] 100 mg/dL Abnormal NEGATIVE/ TRACE Comment on above: Performed By: #### C BC #### [facility] [address] [place] [address] Dr. Pratibha Stevenson SPEC GRAVITY 1.010 Normal 1.005-<=1.025 [facility] Comment on above: Performed By: #### C BC #### [facility] [address] [place] [address] Dr. Pratibha Stevenson UR MICRO IND INDICATED Normal Comment on above: Performed By: #### C BC #### [facility] [address] [place] [address] Dr. Pratibha Stevenson Urobilinogen Qn (U) 1.0 {Butch'U}/dL Normal 0.2 - 1. 0 Comment on above: Performed By: #### C BC #### [facility] [address] [place] [address] Dr. Pratibha Stevenson LIPASEon 05-08-2022 Lipase [Catalytic activity/Vol] 417.0 U/L Critically high 73.0-393.0 Comment on above: Performed By: #### L ACT #### [facility] [address] [place] [address] Dr. Pratibha Stevenson PROF 14(COMP METB)on 023 Albumin [Mass/Vol] 4.5 g/dL Normal 3.4-5.0 [facility] Comment on above: Performed By: #### L ACT #### [facility] [address] [place] [address] Dr. Pratibha Stevenson Albumin/Globulin [Mass ratio] 1.3 {ratio} Normal Comment on above: Performed By: #### L ACT #### [facility] [address] [place] [address] Dr. Pratibha Stevenson ALP [Catalytic activity/Vol] 97 U/L Normal 46-116 [facility] Comment on above: Performed By: #### L ACT #### [facility] [address] [place] [address] Dr. Pratibha Stevenson ALT [Catalytic activity/Vol] 35 U/L Normal 16-63 Comment on above: Performed By: #### L ACT #### [facility] [address] [place] [address] Dr. Pratibha Stevenson Anion gap [Moles/Vol] 13.7 mmol/L Normal Comment on above: Performed By: #### L ACT #### [facility] [address] [place] [address] Dr. Pratibha Stevenson AST [Catalytic activity/Vol] 22 U/L Normal 15-37 [facility] Comment on above: Performed By: #### L ACT #### [facility] [address] [place] [address] Dr. Pratibha Stevenson Bilirubin [Mass/Vol] 0.7 mg/dL Normal 0.2-1.0 Comment on above: Performed By: #### L ACT #### [facility] [address] [place] [address] Dr. Pratibha Stevenson Calcium [Mass/Vol] 9.6 mg/dL Normal 8.5-10.1 [facility] Comment on above: Performed By: #### L ACT #### [facility] [address] [place] [address] Dr. Pratibha Stevenson Chloride [Moles/Vol] 99 mmol/L Normal 98-107 [facility] Comment on above: Performed By: #### L ACT #### [facility] [address] [address] [address] Pratibha Stevenson CO2 [Moles/Vol] 29.0 mmol/L Normal 21.0-32.0 [facility] Comment on above: Performed By: #### L ACT #### [facility] [address] [address] [address] Pratibha Stevenson Creatinine [Mass/Vol] 1.43 mg/dL Critically high 0.70-1.30 Comment on above: Performed By: #### L ACT #### [facility] [address] [address] [address] Pratibha Stevenson EGFR-AF [place] >60 Normal >=60 [facility] Comment on above: Performed By: #### L ACT #### [facility] [address] [address] [address] Pratibha Stevenson EGFR-NON AF [place] 58 mL/min/1.73m2 Critically low >=60 Comment on above: Performed By: #### L ACT #### [facility] [address] [address] [address] Pratibha Stevenson Globulin (S) [Mass/Vol] 3.5 g/dL Normal Comment on above: Performed By: #### L ACT #### [facility] [address] [address] [address] Pratibha Stevenson Glucose [Mass/Vol] 127 mg/dL Critically high 74-[address] [facility] Comment on above: Performed By: #### L ACT #### [facility] [address] [address] [address] Pratibha Stevenson Potassium [Moles/Vol] 3.7 mmol/L Normal 3.5-5.1 Comment on above: Performed By: #### L ACT #### [facility] [address] [address] [address] Pratibha Stevenson Protein [Mass/Vol] 8.0 g/dL Normal 6.4-8.2 [facility] [place] [facility] Comment on above: Performed By: #### L ACT #### [facility] [address] [address] [address] Pratibha Stevenson Sodium [Moles/Vol] 138 mmol/L Normal 136-145 [facility] [place] [facility] Comment on above: Performed By: #### L ACT #### [facility] [address] [place] [address] Dr. Pratibha Stevenson Urea nitrogen [Mass/Vol] 13.0 mg/dL Normal 7.0-18.0 Comment on above: Performed By: #### L ACT #### [facility] [address] [place] [address] Dr. Pratibha Stevenson Urea nitrogen/Creatinine [Mass ratio] 9.1 mg/mg Normal Comment on above: Performed By: #### L ACT #### [facility] [address] [place] [address] Dr. Pratibha Stevenson URINE MICROSCOPIC ONLYon BACTERIA NONE SEEN Normal NONE SEEN Comment on above: Performed By: #### C BC #### [facility] [address] [place] [address] Dr. Pratibha Stevenson Bacteria identified Cx Nom (U) NOT INDICATED Normal [facility] Comment on above: Performed By: #### C BC #### [facility] [address] [place] [address] Dr. Pratibha Stevenson CAST NONE SEEN Normal NONE SEEN Comment on above: Performed By: #### C BC #### [facility] [address] [place] [address] Dr. Pratibha Stevenson Crystals LM Nom (Urine sed) NONE SEEN Normal NONE SEEN [facility] Comment on above: Performed By: #### C BC #### [facility] [address] [place] [address] Dr. Pratibha Stevenson Epithelial cells LM Ql (Urine sed) FEW Abnormal NONE SEEN /RARE [facility] Comment on above: Performed By: #### C BC #### [facility] [address] [place] [address] Dr. Pratibha Stevenson MUCOUS TRACE Abnormal NONE SEEN [facility] Comment on above: Performed By: #### C BC #### [facility] [address] [place] [address] Dr. Pratibha Stevenson RBC (U) [#/Vol] /uL Abnormal 0-2 [facility] Comment on above: Performed By: #### C BC #### [facility] [address] [place] [address] Dr. Pratibha Stevenson WBC 2-5 Abnormal NONE SEEN [facility] Comment on above: Performed By: #### C BC #### [facility] [address] [place] [address] Dr. Pratibha Stevenson XR CHEST 1 Von 05-08-2022 XR CHEST 1 V XR CHEST 1 V CLINICAL: Left flank pain COMPARISON: No prior studies are available. TECHNIQUE: AP upright chest radiograph obtained. FINDINGS: Heart size and pulmonary vasculature are within normal limits. No airspace infiltrate, consolidation, effusion or pneumothorax. Osseous structures appear intact. IMPRESSION: No acute cardiac or pulmonary findings. Electronically authenticated by: RAMO ZEPEDA Date: 2022-05-08 17:40 Normal [facility] CBC AUTO DIFFon 03-23-2022 BASO # 0.1 103/ul Normal 0.0-0.1 [facility] Comment on above: Performed By: #### C BC #### [facility] [address] [place] [address] Dr. Pratibha Stevenson Basophils/100 WBC (Bld) 0.9 % Normal 0.2-2.0 [facility] Comment on above: Performed By: #### C BC #### [facility] [address] [place] [address] Dr. Pratibha Stevenson EO # 0.1 103/ul Normal 0.0-0.7 [facility] Comment on above: Performed By: #### C BC #### [facility] [address] [place] [address] Dr. Pratibha Stevenson Eosinophils/100 WBC (Bld) 1.7 % Normal 0.9-7.0 [facility] Comment on above: Performed By: #### C BC #### [facility] [address] [place] [address] Dr. Pratibha Stevenson Erythrocyte distribution width (RBC) [Ratio] 12.3 % Normal 11.0-15.0 Comment on above: Performed By: #### C BC #### [facility] [address] [place] [address] Dr. Pratibha Stevenson Hematocrit (Bld) [Volume fraction] 47.2 % Normal 42.0-54.0 Comment on above: Performed By: #### C BC #### [facility] [address] [place] [address] Dr. Pratibha Stevenson Hemoglobin (Bld) [Mass/Vol] 16.0 g/dL Normal 14.0-18.0 Comment on above: Performed By: #### C BC #### [facility] [address] [place] [address] Dr. Pratibha Stevenson IG # 0.03 10e3/ul Normal 0.00-0.03 Comment on above: Performed By: #### C BC #### [facility] [address] [place] [address] Dr. Pratibha Stevenson IG % 0.4 % Normal 0.0-0.5 Comment on above: Performed By: #### C BC #### [facility] [address] [place] [address] Dr. Pratibha Stevenson LYMPH # 2.5 103/ul Normal 1.2-3.8 Comment on above: Performed By: #### C BC #### [facility] [address] [place] [address] Dr. Pratibha Stevenson Lymphocytes/100 WBC (Bld) 30.4 % Normal 20.5-60.0 Comment on above: Performed By: #### C BC #### [facility] [address] [place] [address] Dr. Pratibha Stevenson MANUAL DIFF REQ NO Normal [facility] Comment on above: Performed By: #### C BC #### [facility] [address] [place] [address] Dr. Pratibha Stevenson MCH (RBC) [Entitic mass] 30.9 pg Normal 25.9-34.0 Comment on above: Performed By: #### C BC #### [facility] [address] [place] [address] Dr. Pratibha Stevenson MCHC (RBC) [Mass/Vol] 33.9 g/dL Normal 29.9-35.2 Comment on above: Performed By: #### C BC #### [facility] [address] [place] [address] Dr. Pratibha Stevenson MCV (RBC) [Entitic vol] 91.3 fL Normal 80.0-94.0 Comment on above: Performed By: #### C BC #### [facility] [address] [place] [address] Dr. Pratibha Stevenson MONO # 0.6 103/ul Normal 0.3-0.8 [facility] Comment on above: Performed By: #### C BC #### [facility] [address] [place] [address] Dr. Pratibha Stevenson Monocytes/100 WBC (Bld) 7.6 % Normal 1.7-12.0 Comment on above: Performed By: #### C BC #### [facility] [address] [place] [address] Dr. Pratibha Stevenson NEUT # 4.8 103/ul Normal 1.4-6.5 [facility] Comment on above: Performed By: #### C BC #### [facility] [address] [place] [address] Dr. Pratibha Stevenson Neutrophils/100 WBC (Bld) 59.0 % Normal 43.0-75.0 [facility] Comment on above: Performed By: #### C BC #### [facility] [address] [place] [address] Dr. Pratibha Stevenson Platelet mean volume (Bld) [Entitic vol] 10.2 fL Normal 9.5-13.5 [facility] Comment on above: Performed By: #### C BC #### [facility] [address] [place] [address] Dr. Pratibha Stevenson PLT 258 103/ul Normal 150-450 [facility] Comment on above: Performed By: #### C BC #### [facility] [address] [place], [place] [address] Dr. Pratibha Stevenson RBC 5.17 106/ul Normal 4.70-6.10 Comment on above: Performed By: #### C BC #### [facility] [address] [place], [place] [address] Dr. Pratibha Stevenson WBC 8.1 103/ul Normal 4.0-11.0 Comment on above: Performed By: #### C BC #### [facility] [address] [place], [place] [address] ABD/PELVIS WO CONon 03-23 CT ABD/PELVIS WO CON EXAMINATION: CT ABD/PELVIS WO CON, 03/22/2022 10:27 PM EST HISTORY: CALCULUS OF KIDNEY COMPARISON: 04/08/2020 TECHNIQUE: CT scan of the abdomen and pelvis was performed without IV contrast. CT dose reduction technique was used, including Automated Exposure Control. FINDINGS: TUBES AND IMPLANTS: None. LOWER CHEST: Unremarkable ABDOMEN and PELVIS ABDOMINAL WALL AND SOFT TISSUES: Unremarkable. BONES: No suspicious lesions ARTERIES: Incompletely evaluated VEINS: Incompletely evaluated LYMPH NODES: Unremarkable. PERITONEUM/ RETROPERITONEUM: Unremarkable. BOWEL: Submucosal fat infiltration is seen involving the proximal colon. No obstruction APPENDIX: Unremarkable LIVER: Unremarkable. GALLBLADDER: Unremarkable. BILE DUCTS: Not dilated SPLEEN: Unremarkable. PANCREAS: Unremarkable. ADRENALS: Unremarkable. KIDNEYS/ URETERS: Bilateral nonobstructing renal calculi measuring up to 4 millimeters on the left and 2 millimeters in the right. REPRODUCTIVE ORGANS: Unremarkable URINARY BLADDER: Unremarkable. IMPRESSION: Bilateral nonobstructing renal calculi measuring up to 4 millimeters on the left and 2 millimeters in the right. No evidence of obstructive uropathy. Submucosal fat deposition seen involving the proximal colon is nonspecific but can be seen in the setting of inflammatory bowel disease. Electronically authenticated by: SHARON GODINEZ Date: 2022-03-22 23:40 Normal [facility] PROF 14(COMP METB)on 022 Albumin [Mass/Vol] 4.2 g/dL Normal 3.4-5.0 [facility] [place] [facility] Comment on above: Performed By: #### L ACT #### [facility] [address] [place] [address] Dr. Pratibha Stevenson Albumin/Globulin [Mass ratio] 1.2 {ratio} Normal Comment on above: Performed By: #### L ACT #### [facility] [address] [address] [address] Pratibha Stevenson ALP [Catalytic activity/Vol] 84 U/L Normal 46-116 Comment on above: Performed By: #### L ACT #### [facility] [address] [place] [address] Dr. Pratibha Stevenson ALT [Catalytic activity/Vol] 32 U/L Normal 16-63 Comment on above: Performed By: #### L ACT #### [facility] [address] [place] [address] Dr. Pratibha Stevenson Anion gap [Moles/Vol] 10.6 mmol/L Normal Comment on above: Performed By: #### L ACT #### [facility] [address] [place] [address] Dr. Pratibha Stevenson AST [Catalytic activity/Vol] 18 U/L Normal 15-37 Comment on above: Performed By: #### L ACT #### [facility] [address] [place] [address] Dr. Pratibha Stevenson Bilirubin [Mass/Vol] 0.4 mg/dL Normal 0.2-1.0 Comment on above: Performed By: #### L ACT #### [facility] [address] [place] [address] Dr. Pratibha Stevenson Calcium [Mass/Vol] 9.8 mg/dL Normal 8.5-10.1 [facility] Comment on above: Performed By: #### L ACT #### [facility] [address] [place] [address] Dr. Pratibha Stevenson Chloride [Moles/Vol] 103 mmol/L Normal 98-107 Comment on above: Performed By: #### L ACT #### [facility] [address] [place] [address] Dr. Pratibha Stevenson CO2 [Moles/Vol] 28.2 mmol/L Normal 21.0-32.0 [facility] Comment on above: Performed By: #### L ACT #### [facility] [address] [address] [address] Pratibha Stevenson Creatinine [Mass/Vol] 1.24 mg/dL Normal 0.70-1.30 [facility] Comment on above: Performed By: #### L ACT #### [facility] [address] [address] [address] Pratibha Stevenson EGFR-AF [place] >60 Normal >=60 [facility] Comment on above: Performed By: #### L ACT #### [facility] [address] [place] [address] Dr. Pratibha Stevenson EGFR-NON AF [place] >60 Normal >=60 [facility] Comment on above: Performed By: #### L ACT #### [facility] [address] [place] [address] Dr. Prtaibha Stevenson Globulin (S) [Mass/Vol] 3.6 g/dL Normal Comment on above: Performed By: #### L ACT #### [facility] [address] [place] [address] Dr. Pratibha Stevenson Glucose [Mass/Vol] 102 mg/dL Normal 74-106 [facility] Comment on above: Performed By: #### L ACT #### [facility] [address] [place] [address] Dr. Pratibha Stevenson Potassium [Moles/Vol] 3.8 mmol/L Normal 3.5-5.1 [facility] Comment on above: Performed By: #### L ACT #### [facility] [address] [address] [address] Pratibha Stevenson Protein [Mass/Vol] 7.8 g/dL Normal 6.4-8.2 [facility] Comment on above: Performed By: #### L ACT #### [facility] [address] [address] [address] Pratibha Stevenson Sodium [Moles/Vol] 138 mmol/L Normal 136-145 [facility] Comment on above: Performed By: #### L ACT #### [facility] [address] [place], [place] [address] Dr. Pratibha Stevenson Urea nitrogen [Mass/Vol] 18.0 mg/dL Normal 7.0-18.0 Comment on above: Performed By: #### L ACT #### [facility] [address] [place], [place] [address] Dr. Pratibha Stevenson Urea nitrogen/Creatinine [Mass ratio] 14.5 mg/mg Normal Comment on above: Performed By: #### L ACT #### [facility] [address] [place], [place] [address] Dr. Pratibha Stevenson Vital Signs Date Time Vital Sign Value Performing Clinician Janice lopez 07-21-2022 08:57-0400 Blood Pressure Location Jessie Lue [facility] 07-21-2022 08:57-0400 Diastolic blood pressure 69 mm[Hg] Jessie Lue [facility] 07-21-2022 08:57-0400 Heart rate 74 /min Jessie Lue [facility] 07-21-2022 08:57-0400 Systolic blood pressure 133 mm[Hg] Jessie Lue [facility] 07-13-2022 09:17-0400 Blood Pressure Location Jessie Lue [facility] 07-13-2022 09:17-0400 Diastolic blood pressure 68 mm[Hg] Jessie Lue [facility] 07-13-2022 09:17-0400 Heart rate 73 /min Jessie Lue [facility] 07-13-2022 09:17-0400 Systolic blood pressure 124 mm[Hg] Jessie Murrell [facility] Encounters Encounter Date Encounter Type Care Provider Facility Start: 03-13-2023 End: 03-13-2023 ambulatory KEVIN REYNOSO [facility] Start: 02-16-2023 End: 02-17-2023 ambulatory KEVIN REYNOSO [facility] Start: 02-16-2023 End: 02-17-2023 Encounter for other preprocedural examination [facility] Start: 08-11-2022 End: 08-11-[address] LATRICIA GUZMAN . Facility: Start: 07-22-2022 End: 07-23-[address] LATRICIA GUZMAN . Facility: Start: 07-21-2022 End: 07-22-2022 ambulatory Jessie Murrell Facility: [place] Start: 07-21-2022 End: 07-21-2022 Patient encounter procedure Jessie Murrell [facility] [place] Start: 07-20-2022 End: 07-20-[address] LATRICIA GUZMAN . Facility: Start: 07-13-2022 End: 07-14-2022 ambulatory Jessie Murrell Facility: [place] Start: 07-13-2022 End: 07-13-2022 Patient encounter procedure Jessie Murrell [facility] Start: 07-06-2022 End: 07-07-2022 ambulatory JESSIE MURRELL . Facility: Start: 05-23-2022 End: 05-24-2022 ambulatory Jessie Murrell Facility:[facility] Start: 05-23-2022 End: 05-23-2022 Patient encounter procedure Jessie Holdene [facility] Start: 05-11-2022 End: 05-12-2022 ambulatory Jessie Murrell [id number]::[id number] Start: 05-08-2022 End: 05-12-[address] LATRICIA GUZMAN . Facility: Start: 03-23-2022 End: 03-23-[address] LATRICIA GUZMAN . Facility:[facility] Procedures Date Procedure Procedure Detail Performing Clinician Start: 05-23-2022 Cystoscopic removal of ureteric stent Jessie Murrell Start: 05-08-2022 Cystoscopic laser lithotripsy of ureteric calculus Jessie Lusebastián Immunizations Immunization Date Immunization Notes Care Provider [facility] 12-26-1997 DTaP, unspecified formulation Jessie Lue [facility] 12-26-1997 measles, mumps and rubella virus vaccine Jessie Lue [facility] 01-10-1994 DTaP, unspecified formulation Jessie Lue [facility] 01-10-1994 hepatitis B vaccine, pediatric or pediatric/adolescent dosage Jessie Lue [facility] 01-10-1994 Hib, unspecified formulation Jessie Lue [facility] 01-10-1994 measles, mumps and rubella virus vaccine Jessie Lue [facility] 03-12-1993 Hib, unspecified formulation Jessie Lue [facility] 01-01-1993 hepatitis B vaccine, pediatric or pediatric/adolescent dosage Jessie Lue [facility] 01-01-1993 Hib, unspecified formulation Jessie Murrell [facility] 1992 hepatitis B vaccine, pediatric or pediatric/adolescent dosage Jessie Murrell [facility] 1992 Hib, unspecified formulation Jessie Murrell [facility] Payers Date Payer Category Payer Unknown [id number] 2.16.8 [id number] 1992 Unknown [id number] 2.16.8 [id number] 1992 Unknown [id number] 2.16.8 [id number] 1992 Unknown [id number] 2.16.8 [id number] 1992 Unknown [id number] 2.16.84 [id number] 1992 Unknown [id number] 2.16.84 [id number] 1992 Unknown [id number] 2.16.84 [id number] 1992 Unknown [id number] 2.16.84 [id number] 1992 Unknown [id number] 2.16.84 [id number] 1992 Unknown [id number] 2.16.84 [id number] 1992 Unknown [id number] 2.16.8 [id number] 1992 Unknown [id number] 2.16.8 [id number] 1957 Medicaid [id number] 1957 Self-pay [id number] Self-pay Social History Date Type Detail Facility Tobacco smoking status No Smokin g Status Entered [facility] Sex Assigned At Male [facility] Start: 07-13-2022 End: 07-21-2022 Tobacco smoking status Light tobacco smoker (finding) [facility] Tobacco smoking status Never [facility] Functional Status Date Assessment Result Facility 07-21-2022 Functional Status N/A [facility] 07-13-2022 Functional Status N/A [facility] 05-12-2022 Functional Status N/A [facility] Discharge instructions 07-21-2022 Note Date & Type Note Facility 07-21-2022 Hospital Discharg e instructions Patient Education 07/21/2022 09:25:12 Dietary Guidelines to Help Prevent Kidney Stones Dietary Guidelines to Help Prevent Kidney Stones Kidney stones are deposits of minerals and salts that form inside your kidneys. Your risk of developing kidney stones may be greater depending on your diet, your lifestyle, the medicines you take, and whether you have certain medical conditions. Most people can reduce their chances of developing kidney stones by following the instructions below. Depending on your overall health and the type of kidney stones you tend to develop, your dietitian may give you more specific instructions. What are tips for following this plan? Reading food labels Choose foods with no salt added or low-salt labels. Limit your sodium intake to less than 1500 mg per day. Choose foods with calcium for each meal and snack. Try to eat about 300 mg of calcium at each meal. Foods that contain 200 500 mg of calcium per serving include: ?8 oz (237 ml) of milk, fortified nondairy milk, and fortified fruit juice. ?8 oz (237 ml) of kefir, yogurt, and soy yogurt. ?4 oz (118 ml) of tofu. ?1 oz of cheese. ?1 cup (300 g) of dried figs. ?1 cup (91 g) of cooked broccoli. ?1 3 oz can of sardines or mackerel. Most people need 1000 to 1500 mg of calcium each day. Talk to your dietitian about how much calcium is recommended for you. Shopping Buy plenty of fresh fruits and vegetables. Most people do not need to avoid fruits and vegetables, even if they contain nutrients that may contribute to kidney stones. When shopping for convenience foods, choose: ?Whole pieces of fruit. ?Premade salads with dressing on the side. ?Low-fat fruit and yogurt smoothies. Avoid buying frozen meals or prepared deli foods. Look for foods with live cultures, such as yogurt and kefir. Cooking Do not add salt to food when cooking. Place a salt shaker on the table and allow each person to add his or her own salt to taste. Use vegetable protein, such as beans, textured vegetable protein (TVP), or tofu instead of meat in pasta, casseroles, and soups. Meal planning Eat less salt, if told by your dietitian. To do this: ?Avoid eating processed or premade food. ?Avoid eating fast food. Eat less animal protein, including cheese, meat, poultry, or fish, if told by your dietitian. To do this: ?Limit the number of times you have meat, poultry, fish, or cheese each week. Eat a diet free of meat at least 2 days a week. ?Eat only one serving each day of meat, poultry, fish, or seafood. ?When you prepare animal protein, cut pieces into small portion sizes. For most meat and fish, one serving is about the size of one deck of cards. Eat at least 5 servings of fresh fruits and vegetables each day. To do this: ?Keep fruits and vegetables on hand for snacks. ?Eat 1 piece of fruit or a handful of berries with breakfast. ?Have a salad and fruit at lunch. ?Have two kinds of vegetables at dinner. Limit foods that are high in a substance called oxalate. These include: ?Spinach. ?Rhubarb. ?Beets. ?Potato chips and nauruan fries. ?Nuts. If you regularly take a diuretic medicine, make sure to eat at least 1 2 fruits or vegetables high in potassium each day. These include: ?Avocado. ?Banana. ?Todd, prune, carrot, or tomato juice. ?Baked potato. ?Cabbage. ?Beans and split peas. General instructions Drink enough fluid to keep your urine clear or pale yellow. This is the most important thing you can do. Talk to your health care provider and dietitian about taking daily supplements. Depending on your health and the cause of your kidney stones, you may be advised: ?Not to take supplements with vitamin C. ?To take a calcium supplement. ?To take a daily probiotic supplement. ?To take other supplements such as magnesium, fish oil, or vitamin B6. Take all medicines and supplements as told by your health care provider. Limit alcohol intake to no more than 1 drink a day for non women and 2 drinks a day for men. One drink equals 12 oz of beer, 5 oz of wine, or 1 oz of hard liquor. Lose weight if told by your health care provider. Work with your dietitian to find strategies and an eating plan that works best for you. What foods are not recommended? Limit your intake of the following foods, or as told by your dietitian. Talk to your dietitian about specific foods you should avoid based on the type of kidney stones and your overall health. Grains Breads. Bagels. Rolls. Baked goods. Salted crackers. Cereal. Pasta. Vegetables Spinach. Rhubarb. Beets. Canned vegetables. Pickles. Olives. Meats and other protein foods Nuts. Nut butters. Large portions of meat, poultry, or fish. Salted or cured meats. Deli meats. Hot dogs. Sausages. Dairy Cheese. Beverages Regular soft drinks. Regular vegetable juice. Seasonings and other foods Seasoning blends with salt. Salad dressings. Canned soups. Soy sauce. Ketchup. Barbecue sauce. Canned pasta sauce. Casseroles. Pizza. Lasagna. Frozen meals. Potato chips. Macedonian fries. Summary You can reduce your risk of kidney stones by making changes to your diet. The most important thing you can do is drink enough fluid. You should drink enough fluid to keep your urine clear or pale yellow. Ask your health care provider or dietitian how much protein from animal sources you should eat each day, and also how much salt and calcium you should have each day. This information is not intended to replace advice given to you by your health care provider. Make sure you discuss any questions you have with your health care provider. Document Released: 08/12/2011 Document Revised: 08/07/2019 Document Reviewed: 03/28/2017 [employer] Patient Education 2019 [employer]. Follow Up Care 07/20/2022 16:11:07 With:Handy WILEY, DANA Llamas, [facility] Address: When: Unknown [facility] Discharge instructions 07-13-2022 Note Date & Type Note Facility 07-13-2022 Hospital Discharg e instructions Patient Education 07/13/2022 10:16:52 Dietary Guidelines to Help Prevent Kidney Stones Dietary Guidelines to Help Prevent Kidney Stones Kidney stones are deposits of minerals and salts that form inside your kidneys. Your risk of developing kidney stones may be greater depending on your diet, your lifestyle, the medicines you take, and whether you have certain medical conditions. Most people can reduce their chances of developing kidney stones by following the instructions below. Depending on your overall health and the type of kidney stones you tend to develop, your dietitian may give you more specific instructions. What are tips for following this plan? Reading food labels Choose foods with no salt added or low-salt labels. Limit your sodium intake to less than 1500 mg per day. Choose foods with calcium for each meal and snack. Try to eat about 300 mg of calcium at each meal. Foods that contain 200 500 mg of calcium per serving include: ?8 oz (237 ml) of milk, fortified nondairy milk, and fortified fruit juice. ?8 oz (237 ml) of kefir, yogurt, and soy yogurt. ?4 oz (118 ml) of tofu. ?1 oz of cheese. ?1 cup (300 g) of dried figs. ?1 cup (91 g) of cooked broccoli. ?1 3 oz can of sardines or mackerel. Most people need 1000 to 1500 mg of calcium each day. Talk to your dietitian about how much calcium is recommended for you. Shopping Buy plenty of fresh fruits and vegetables. Most people do not need to avoid fruits and vegetables, even if they contain nutrients that may contribute to kidney stones. When shopping for convenience foods, choose: ?Whole pieces of fruit. ?Premade salads with dressing on the side. ?Low-fat fruit and yogurt smoothies. Avoid buying frozen meals or prepared deli foods. Look for foods with live cultures, such as yogurt and kefir. Cooking Do not add salt to food when cooking. Place a salt shaker on the table and allow each person to add his or her own salt to taste. Use vegetable protein, such as beans, textured vegetable protein (TVP), or tofu instead of meat in pasta, casseroles, and soups. Meal planning Eat less salt, if told by your dietitian. To do this: ?Avoid eating processed or premade food. ?Avoid eating fast food. Eat less animal protein, including cheese, meat, poultry, or fish, if told by your dietitian. To do this: ?Limit the number of times you have meat, poultry, fish, or cheese each week. Eat a diet free of meat at least 2 days a week. ?Eat only one serving each day of meat, poultry, fish, or seafood. ?When you prepare animal protein, cut pieces into small portion sizes. For most meat and fish, one serving is about the size of one deck of cards. Eat at least 5 servings of fresh fruits and vegetables each day. To do this: ?Keep fruits and vegetables on hand for snacks. ?Eat 1 piece of fruit or a handful of berries with breakfast. ?Have a salad and fruit at lunch. ?Have two kinds of vegetables at dinner. Limit foods that are high in a substance called oxalate. These include: ?Spinach. ?Rhubarb. ?Beets. ?Potato chips and nauruan fries. ?Nuts. If you regularly take a diuretic medicine, make sure to eat at least 1 2 fruits or vegetables high in potassium each day. These include: ?Avocado. ?Banana. ?Todd, prune, carrot, or tomato juice. ?Baked potato. ?Cabbage. ?Beans and split peas. General instructions Drink enough fluid to keep your urine clear or pale yellow. This is the most important thing you can do. Talk to your health care provider and dietitian about taking daily supplements. Depending on your health and the cause of your kidney stones, you may be advised: ?Not to take supplements with vitamin C. ?To take a calcium supplement. ?To take a daily probiotic supplement. ?To take other supplements such as magnesium, fish oil, or vitamin B6. Take all medicines and supplements as told by your health care provider. Limit alcohol intake to no more than 1 drink a day for non women and 2 drinks a day for men. One drink equals 12 oz of beer, 5 oz of wine, or 1 oz of hard liquor. Lose weight if told by your health care provider. Work with your dietitian to find strategies and an eating plan that works best for you. What foods are not recommended? Limit your intake of the following foods, or as told by your dietitian. Talk to your dietitian about specific foods you should avoid based on the type of kidney stones and your overall health. Grains Breads. Bagels. Rolls. Baked goods. Salted crackers. Cereal. Pasta. Vegetables Spinach. Rhubarb. Beets. Canned vegetables. Pickles. Olives. Meats and other protein foods Nuts. Nut butters. Large portions of meat, poultry, or fish. Salted or cured meats. Deli meats. Hot dogs. Sausages. Dairy Cheese. Beverages Regular soft drinks. Regular vegetable juice. Seasonings and other foods Seasoning blends with salt. Salad dressings. Canned soups. Soy sauce. Ketchup. Barbecue sauce. Canned pasta sauce. Casseroles. Pizza. Lasagna. Frozen meals. Potato chips. Macedonian fries. Summary You can reduce your risk of kidney stones by making changes to your diet. The most important thing you can do is drink enough fluid. You should drink enough fluid to keep your urine clear or pale yellow. Ask your health care provider or dietitian how much protein from animal sources you should eat each day, and also how much salt and calcium you should have each day. This information is not intended to replace advice given to you by your health care provider. Make sure you discuss any questions you have with your health care provider. Document Released: 08/12/2011 Document Revised: 08/07/2019 Document Reviewed: 03/28/2017 [employer] Patient Education 2020 [employer]. Follow Up Care 05/23/2022 10:22:28 With:Handy WILEY, Jessie Menchaca URL, [facility] Address: When: Unknown [facility] History and physical note 05-26-2022 Note Date & Type Note Facility 05-26-2022 Note [id number] [facility] Evaluation + Plan note Note Date & Type Note Facility Evaluation + Plan note Future Appointments Appointment Date:07/13/2022 09:00:00 AM Scheduled Provider:Jessie Murrell MD Location:[facility] Appointment Type:URO Office Visit [facility] Hospital course Narrative Note Date & Type Note Facility Hospital course Narrative No data available for this section [facility] Hospital Discharge instructions Note Date & Type Note Facility Hospital Discharge instructions No data available for this section [facility] Progress note Note Date & Type Note Facility Progress note No data available for this section [facility] Summary Purpose Family History No Family History Records FoundNo Family History Records FoundNo Family History Records Found Advance Directives No Advanced Directives Records FoundNo Advanced Directives Records FoundNo Advanced Directives Records Found Additional Source Comments Patient Care team informatio n (unrecognized section and content) Personnel Name: Latricia Guzman MD Address: Address: [address] [place] [address] Personnel Name: Latricia Guzman MD Address: Address: [address] [place] [address] Personnel Name: Latricia Guzman MD Address: Address: [address] [place] [address] (unrecognized sect ion and content) No Status Records FoundNo Status Records FoundNo Status Records Found INFORMATION SOURCE (unrecogn ized section and content) DATE CREATED AUTHOR 07/31/2022 [facility] DATE CREATED AUTHOR AUTHOR'S ORGANIZ ATION 09/13/2022 [facility] DATE CREATED AUTHOR AUTHOR'S ORGANIZ ATION 03/14/2023 [facility] FOR RECORDS PERTAINING TO PATIENTS WHO ARE OR HAVE BEEN ENROLLED IN A CHEMICAL DEPENDENCY/SUBSTANCEABUSE PROGRAM, SOME INFORMATION MAY BE OMITTED. This clinical summary was aggregated from multiple sources. Caution should be exercised in using it in the provision of clinical care. This summary normalizes information from multiple sources, and as a consequence, information in this document may materially change the coding, format and clinical context of patient data. In addition, data may be omitted in some cases. CLINICAL DECISIONS SHOULD BE BASED ON THE PRIMARY CLINICAL RECORDS. [facility]. provides no warranty or guarantee of the accuracy or completeness of information in this document.
--- NOTE | 2023-05-11 22:21 | XR_ITS ---
The [address] [address] Patient Name: OLEGARIO DONALD MRN: [id number] date: 1990 Sex: M Assigned Patient Location: ER Current Patient Location: ER Accession/Order Number: [id number] Exam Date: 05/11/2023 23:15 Report Date: 05/11/2023 23:55 At the request of: CHARLES MARKER Procedure: XR knee RT 3V EXAM: XR knee RT 3V HISTORY: The patient is a 32-year-old male with post op pain COMPARISON: 02/17/2023. FINDINGS: The current lateral view demonstrates focal fullness of the soft tissues anterior to the tibial tubercle. 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 Otherwise, the right knee is radiographically negative with no evidence of fracture, dislocation, joint space narrowing, osteophytes, or other osseous or articular abnormalities. XR/XR knee RT 3V IMPRESSION: Focal pretibial soft tissue fullness. Electronically authenticated by: JILLIAN HUBER Date: 05/11/2023 23:55
--- NOTE | 2023-05-11 22:21 | XR_ITS ---
The [address] [address] Patient Name: OLEGARIO DONALD MRN: [id number] date: 1990 Sex: M Assigned Patient Location: ER Current Patient Location: ER Accession/Order Number: [id number] Exam Date: 05/11/2023 23:15 Report Date: 05/11/2023 23:57 At the request of: CHARLES MARKER Procedure: XR tibia fibula RT 2V EXAM: XR tibia fibula RT 2V HISTORY: The patient is a 32-year-old male, post op COMPARISON: None. XR/XR tibia fibula RT 2V IMPRESSION: The right tibia and fibula are radiographically negative with no evidence of fracture, cortical lucencies, or other osseous abnormalities. Electronically authenticated by: JILLIAN HUBER Date: 05/11/2023 23:57
[2023-05-11 22:52] LABS: Basophils Absolute Auto 0.1 10^3/uL (0.0-0.1); Basophils Percent Auto 0.7 % (0.2-2.0); Eosinophils Absolute Auto 0.2 10^3/uL (0.0-0.7); Eosinophils Percent Auto 2.3 % (0.9-7.0); Hematocrit 41.2 % (42.0-54.0); Hemoglobin 13.9 g/dL (14.0-18.0); Immature Granulocytes Abs Auto 0.01 10^3/uL (0.00-0.03); Immature Granulocytes Pct Auto 0.1 % (0.0-0.5); Lymphocytes Absolute Auto 2.5 10^3/uL (1.2-3.8); Lymphocytes Percent Auto 37.1 % (20.5-60.0); Mean Corpuscular HGB Conc 33.7 g/dL (29.9-35.2); Mean Corpuscular Hemoglobin 31.3 pg (25.9-34.0); Mean Corpuscular Volume 92.8 fL (80.0-94.0); Mean Platelet Volume 9.5 fL (9.5-13.5); Monocytes Absolute Auto 0.5 10^3/uL (0.3-0.8); Monocytes Percent Auto 6.9 % (1.7-12.0); Neutrophils Absolute Auto 3.6 10^3/uL (1.4-6.5); Neutrophils Percent Auto 52.9 % (43.0-75.0); Platelet Count 223 10^3/uL (150-450); Red Blood Count 4.44 10^6/uL (4.70-6.10); Red Cell Distribution Width 11.7 % (11.0-15.0); White Blood Count 6.9 10^3/uL (4.0-11.0)
[2023-05-11] MEDS: 0.9 % SODIUM CHLORIDE 1,000 ML 1000 ML IV (22:54)
[2023-05-11] MEDS: KETOROLAC TROMETHAMINE 30 MG/ML VIAL IVP (22:54)
[2023-05-11 23:09] LABS: D Dimer 0.31 mg/L FEU (<=0.59)
[2023-05-11 23:10] LABS: Alanine Aminotransferase 33 U/L (16-63); Albumin Globulin Ratio 1.1; Albumin Level 3.7 g/dL (3.4-5.0); Alkaline Phosphatase 85 U/L (46-116); Anion Gap 10.3; Aspartate Amino Transferase 16 U/L (15-37); BUN Creatinine Ratio 14.7; Bilirubin Total 0.4 mg/dL (0.2-1.0); Calcium 9.3 mg/dL (8.5-10.1); Carbon Dioxide 25.9 mmol/L (21.0-32.0); Chloride 100 mmol/L (98-107); Estimated GFR (African America >60 (>=60); Estimated GFR (Non-African Ame >60 (>=60); Globulin 3.5 g/dL; Glucose 99 mg/dL (74-106); Potassium 3.2 mmol/L (3.5-5.1); Sodium 133 mmol/L (136-145); Total Protein 7.2 g/dL (6.4-8.2)
[2023-05-11 23:54] VITALS: BP 140/98; PULSE 74; RESP 16; O2SAT 99
--- NOTE | 2023-05-11 23:56 | ED_ITS ---
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 The patient states that after having his surgery he was doing well and was ambulatory. He was not using his crutches and then he had a fall. He states he was taking a step and heard a pop and could not stop himself from falling. After that he was having some pain but was still able to a mbulate with his crutches until recently when he started having increasing pain of the right leg and states that the right leg is heavy and he cannot move it. He states he feels like it is a weight. He was seen in follow-up by his orthopedic surgeon who put him on antibiotics as he has a small open area that was draining yellow discharge at the anterior knee surgical site and set him up for physical therapy. He states he is not on any pain medication but [facility] shows Rx for gabapentin. He was seen at the primary care physician's office earlier today and was given a shot of Toradol. The primary care physician's office referred him back to the orthopedic surgeon for further evaluation and treatment. He also states he feels dehydrated because he has not been drinking much water. Related Data Home Medications Medication Instructions Recorded Confirmed gabapentin 300 mg capsule 300 mg PO BID 01/03/23 05/11/23 celecoxib 200 mg capsule 200 mg PO Q24H 05/11/23 05/11/23 cephalexin 500 mg tablet 500 mg PO Q8H 05/11/23 05/11/23 ondansetron HCl 4 mg tablet 4 mg PO Q6H PRN nausea and vomiting 05/11/23 05/11/23 pantoprazole 40 mg tablet,delayed 40 mg PO DAILY 05/11/23 05/11/23 release sulfamethoxazole 800 1 tab PO Q12H 05/11/23 05/11/23 mg-trimethoprim 160 mg tablet Allergies Allergy/AdvReac Type Severity Reaction Status Date / Time naproxen Allergy Unknown Verified 10/12/22 03:36 Review of Systems ROS Status of ROS 10 or more systems reviewed and unremark able except as noted in history and below [facility] Social History Smoking status: Current every day smoker Exam Narrative Exam Narrative: Nurses note and vital signs reviewed and patient is not hypoxic. Blood pressure is mildly elevated at 140/98 General: The patient appears well and in no apparent distress. Patient is resting comfortably on cart. Skin: Warm, dry, no pallor noted. There is no rash noted. Head: Normocephalic, atraumatic Eye: Normal conjunctiva, no drainage, EOMI. PERRL Ears, Nose, Mouth, and Throat: oral mucosa is moist. Nares patent. Cardiovascular: Regular Rate and Rhythm S1S2, pulses are brisk and equal bilaterally Respiratory: Patient is in no distress, no accessory muscle use, lungs are clear to auscultation, no wheezing, rales or rhonchi Back: non-tender, no CVA tenderness bilaterally to percussion. GI: Normal bowel sounds, no tenderness to palpation, no masses appreciated. No rebound, guarding, or rigidity noted. Musculoskeletal: The patient has diffuse tenderness to the entire right leg; the medial thigh is tender, the posterior popliteal area is tender with no appreciable mass, the medial aspect of the lower leg is also tender with resolving ecchymosis at the distal tibia-fibula. Foot is warm and sensate with brisk pulses. There is no palpable cords or other notable abnormality in the lower leg. Neurological: A&O x4, normal speech Psychiatric: Cooperative Constitutional Vital Signs, click to edit/add: Last Vital Signs Temp 98.0 F 05/11/23 21:51 Pulse 74 05/11/23 23:54 Resp 74 H 05/11/23 23:54 BP 140/98 H 05/11/23 23:54 Pulse Ox 99 05/11/23 23:54 O2 Del Method Room Air 05/11/23 23:54 Course Vital Signs Vital signs: Vital Signs Temperature 98.0 F 05/11/23 21:51 Pulse Rate 81 05/11/23 21:51 Respiratory Rate 16 05/11/23 21:51 Blood Pressure 136/79 05/11/23 21:51 Pulse Oximetry 96 05/11/23 21:51 Oxygen Delivery Method Room Air 05/11/23 21:51 Temperature 98.0 F 05/11/23 21:51 Pulse Rate 74 05/11/23 23:54 Respiratory Rate 74 H 05/11/23 23:54 Blood Pressure 140/98 H 05/11/23 23:54 Pulse Oximetry 99 05/11/23 23:54 Oxygen Delivery Method Room Air 05/11/23 23:54 MDM - Extremity Injury (Lower) MDM Narrative Medical decision making narrative: This 32-year-old male who underwent surgery for Heaters Schlatter's disease for evaluation of ongoing right-sided leg pain and weakness. The patient states that 3 weeks after his surgery he was walking and felt a pop in his knee and fell. He followed up with orthopedic surgeon who referred him to physical therapy. The patient states that his leg has become increasingly weak and painful. He does h ave some bruising at the medial aspect of the right distal tibia. He has good sensation and normal pulses and capillary refill in the right foot. There is mild swelling of the extremity without palpable cords or erythema in the posterior leg. He was seen earlier in the day by his primary care provider who gave him a shot of Toradol but otherwise referred him back to the orthopedic surgeon. He states he is supposed be pertussis abating and physical therapy but he cannot due to the pain and decreased ability to move the leg. He was given a prescription for antibiotics due to drainage from the surgical wound site. He was medicated with Toradol with minimal improvement and requested something additional for pain and was given 4 mg of morphine and Zofran as well as IV fluids because he felt dehydrated. Routine labs are reviewed.He has a normal white count and hemoglobin. Electrolytes are normal. He has a normal d-dimer. X- ray of the knee shows postoperative findings but otherwise is normal and x-ray of the tibia-fibula is also normal. The patient wanted a definitive answer for me as to what is going on with his leg however I explained to him that I do not know the details of the surgical procedure that he had whether or not there was a tendon repair, muscle realignment etc. He states that the orthopedic surgeon also asked him if he had ever had a tendon rupture or muscle tear. [facility] also told him that his patella moves approx 2 cm medially and laterally. I explained that both of these are possible and I do not have additional imaging that would help to elucidate these types of injuries. He verbalizes understanding. He states he is very frustrated because he was feeling better for only 3 weeks and now is worse than prior to his surgery. He did agree to a knee immobilizer to help to stabilize the extremity and will continue to use his crutches. He will be discharged home with a Percocet to use for pain and a prescription of Percocet to use as needed until he can see his orthopedic surgeon in follow-up. Medical Records Medical records narrative: [place] [address] XRay Report Signed Patient: OLEGARIO DONALD MR#: [id number] : 1990 Acct:[id number] Age/Sex: 32 / M ADM Date: 05/11/23 Loc: ER Attending Dr: Ordering Physician: Dolores Alicea Date of Service: 05/11/23 Procedure(s): XR knee RT 3V Accession Number(s): [id number] cc: Jc Guzman M.D.; Dolores Alicea~ The [place] [id number] Patient Name: OLEGARIO DONALD MRN: [id number] date: 1990 Sex: M Assigned Patient Location: ER Current Patient Location: ER Accession/Order Number: [id number] Exam Date: 05/11/2023 23:15 Report Date: 05/11/2023 23:55 At the request of: DOLORES ALICEA Procedure: XR knee RT 3V EXAM: XR knee RT 3V HISTORY: The patient is a 32-year-old male with post op pain COMPARISON: 02/17/2023. FINDINGS: The current lateral view demonstrates focal fullness of the soft tissues anterior to the tibial tubercle. 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 Otherwise, the right knee is radiographically negative with no evidence of fracture, dislocation, joint space narrowing, osteophytes, or other osseous or articular abnormalities. XR/XR knee RT 3V IMPRESSION: Focal pretibial soft tissue fullness. Electronically authenticated by: JILLIAN HUBER Date: 05/11/2023 23:[address] [address] XRay Report Signed Patient: OLEGARIO DONALD MR#: [id number] : 1990 Acct:[id number] Age/Sex: 32 / M ADM Date: 05/11/23 Loc: ER Attending Dr: Ordering Physician: Dolores Alicea Date of Service: 05/11/23 Procedure(s): XR tibia fibula RT 2V Accession Number(s): [id number] cc: Jc Guzman M.D.; Dolores Marker~ The [address] [address] Patient Name: OLEGARIO DONALD MRN: [id number] date: 1990 Sex: M Assigned Patient Location: ER Current Patient Location: ER Accession/Order Number: [id number] Exam Date: 05/11/2023 23:15 Report Date: 05/11/2023 23:57 At the request of: DOLORES MARKER Procedure: XR tibia fibula RT 2V EXAM: XR tibia fibula RT 2V HISTORY: The patient is a 32-year-old male, post op COMPARISON: None. XR/XR tibia fibula RT 2V IMPRESSION: The right tibia and fibula are radiographically negative with no evidence of fracture, cortical lucencies, or other osseous abnormalities. Electronically authenticated by: JILLIAN HUBER Date: 05/11/2023 Lab Data Labs: Lab Results 05/11/23 05/11/23 Range/Units 22:40 22:44 WBC 6.9 (4.0-11.0) 10^3/uL RBC 4.44 L (4.70-6.10) 10^6/uL Hgb 13.9 L (14.0-18.0) g/dL Hct 41.2 L (42.0-54.0) % MCV 92.8 (80.0-94.0) fL MCH 31.3 (25.9-34.0) pg MCHC 33.7 (29.9-35.2) g/dL RDW 11.7 (11.0-15.0) % Plt Count 223 (150-450) 10^3/uL MPV 9.5 (9.5-13.5) fL Neut % (Auto) 52.9 (43.0-75.0) % Lymph % (Auto) 37.1 (20.5-60.0) % Chambers % (Auto) 6.9 (1.7-12.0) % Eos % (Auto) 2.3 (0.9-7.0) % Baso % (Auto) 0.7 (0.2-2.0) % Neut # (Auto) 3.6 (1.4-6.5) 10^3/uL Lymph # (Auto) 2.5 (1.2-3.8) 10^3/uL Chambers # (Auto) 0.5 (0.3-0.8) 10^3/uL Eos # (Auto) 0.2 (0.0-0.7) 10^3/uL Baso # (Auto) 0.1 (0.0-0.1) 10^3/uL Abs Immat Gran (auto) 0.01 (0.00-0.03) 10^3/uL Imm/Tot Granulo (auto) 0.1 (0.0-0.5) % D-Dimer 0.31 (<=0.59) mg/L FEU Sodium 133 L (136-145) mmol/L Potassium 3.2 L (3.5-5.1) mmol/L Chloride 100 (98-107) mmol/L Carbon Dioxide 25.9 (21.0-32.0) mmol/L Anion Gap 10.3 BUN 19.0 H (7.0-18.0) mg/dL Creatinine 1.29 (0.70-1.30) mg/dL Est GFR ( Amer) >60 (>=60) Est GFR (Non-Af Amer) >60 (>=60) BUN/Creatinine Ratio 14.7 Glucose 99 (74-106) mg/dL Calcium 9.3 (8.5-10.1) mg/dL Total Bilirubin 0.4 (0.2-1.0) mg/dL AST 16 (15-37) U/L ALT 33 (16-63) U/L Alkaline Phosphatase 85 (46-116) U/L Total Protein 7.2 (6.4-8.2) g/dL Albumin 3.7 (3.4-5.0) g/dL Globulin 3.5 g/dL Albumin/Globulin Ratio 1.1 Discharge Plan Discharge Chief Complaint: Extremity Injury, Lower Clinical Impression: Post-op pain Patient Disposition: Home, Self-Care Time of Disposition Decision: 00:54 Condition: Good Prescriptions / Home Meds: No Action gabapentin 300 mg capsule 300 mg PO BID cephalexin 500 mg tablet 500 mg PO Q8H sulfamethoxazole-trimethoprim 800-160 mg tablet 1 tab PO Q12H celecoxib 200 mg capsule 200 mg PO Q24H pantoprazole 40 mg tablet,delayed release (DR/EC) 40 mg PO DAILY ondansetron HCl 4 mg tablet 4 mg PO Q6H PRN (Reason: nausea and vomiting) Stand Alone Forms: Portal Instructions Referrals: Jc Guzman MD [Primary Care Provider] - 1 week
[2023-05-12] MEDS: ONDANSETRON PF 4 MG/2 ML VIAL IV (00:15)
[2023-05-12] MEDS: MORPHINE SULFATE 4 MG/ML VIAL IV (00:15)
[2023-05-12] MEDS: OXYCODONE HCL/ACETAMINOPHEN 5MG/325MG 2 TAB PO (01:16)
== END 2023-05-12 01:20 | disposition home or self-care (01) ==
PROVIDERS: Emergency Provider Emergency Medicine; PCP Family Medicine
DX: G89.18 Other acute postprocedural pain (principal); M25.561 Pain in right knee; Z79.899 Other long term (current) drug therapy; F17.210 Nicotine dependence, cigarettes, uncomplicated
CPT/HCPCS: 36415; 73562; 73590; 80053; 85025; 85378; 96374; 96375; 99284; J1885; J2270; J2405

== ENCOUNTER 2024-01-31 14:48 | Outpatient (OUT) | payer SELFPAY ==
--- NOTE | 2024-01-31 14:55 | XR_ITS ---
The [address] [address] Patient Name: OLEGARIO DONALD MRN: [id number] date: 1990 Sex: M Assigned Patient Location: RAD Current Patient Location: RAD Accession/Order Number: [id number] Exam Date: 01/31/2024 14:55 Report Date: 01/31/2024 15:20 At the request of: LATRICIA GARCIA Procedure: XR chest 2V EXAM: XR chest 2V HISTORY: Snoring . The patient fell 2 weeks ago with an injury. COMPARISON: 01/03/2023 TECHNIQUE: Upright PA and lateral chest x-ray FINDINGS: The heart is not enlarged and the vasculature is not distended. No acute infiltrate, effusion or pneumothorax is identified. The osseous structures are grossly intact. XR/XR chest 2V IMPRESSION: No acute infiltrate or evidence of cardiac decompensation. The overall appearance of the chest is essentially unchanged. Electronically authenticated by: FAUSTINO CROWLEY Date: 01/31/2024 15:20
--- OUTSIDE RECORDS SUMMARY | 2024-01-31 15:09 | XMS_ITS | CCD ---
Author Organization [facility] Care Team Providers Care Tube Worker Name Role Phone Latricia Guzman Primary Care Physician Shirley Murrell Attending Unavailable Lue Shirley MJoselin Referring Unavailable Lue, Shirley MJoselin Admitting Unavailable Lue Shirley MJoselin Attending Unavailable Lue Shirley MJoselin Referring Unavailable Lue, Shirley MJoselin Attending Unavailable LueRafaelahy MJoselin Attending Unavailable RADHA ., DR ROME Primary Care Unavailable RADHA ., DR ROME Consulting Unavailable RADHA ., DR ROME Admitting Unavailable RADHA ., DR ROME Attending Unavailable MAXIMO, DR SAUMYA Forrester Consulting Unavailable HORTENCIA, DR STEPAN Jerome Consulting Unavailable GATITO ., MR GUEVARA Consulting Unavailable CHAGO ROLLINS Consulting Unavailable ROSALINO VIDALES Consulting Unavailable EDIS HERNÁNDEZ Consulting Unavailable RAMO ZEPEDA Consulting Unavailable LUE .SHIRLEY Consulting Unavailable JADA PEREIRA Consulting Unavailable MAUREEN GARDNER Consulting Unavailable HELGA BAINS Consulting Unavailable LUE ., SHIRLEY M Admitting Unavailable LUE ., SHIRLEY M Attending Unavailable RADHA ., DR ROME Primary Care Unavailable LOU, DR RAMO Hopson Consulting Unavailable MAXIMO, DR SAUMYA Forrester Consulting Unavailable HANDY .SHIRLEY Consulting Unavailable RADHA ., DR ROME Primary Care Unavailable MARKER ., DR SOTO Admitting Unavailable MARKER ., DR SOTO Attending Unavailable MARKER ., DR SOTO Consulting Unavailable ROSALINO VIDALES Consulting Unavailable RADHA ., DR ROME Primary Care Unavailable ANGIE .VALDEZ Admitting Unavailable ANGIE ., VALDEZ Attending Unavailable VALDEZ BARRETO Consulting Unavailable YING WALTON Consulting Unavailable RADHA Olivera, DR ROME Primary Care Unavailable BRUCE RAMIREZ Admitting Unavailable BRUCE RAMIREZ Attending Unavailable PANDA ., LEORA CLINTON Consulting Unavailwili GUZMAN ., DR ROME Primary Care Unavailable SHANNON, DR MADDIE Forrester Admitting Unavailable SHANNON, DR MADDIE Forrester Attending Unavailable SHANNON, DR MADDIE Forrester Consulting Unavailable SHARON GODINEZ Consulting Unavailable Latricia Guzman MD Primary Care Provider [phone] MICHELLE, JON E Referring Unavailable HOY, LATRICIA M Primary Care Unavailable MICHELLE, JON E Referring Unavailable HOY, LATRICIA M Primary Care Unavailable MICHELLE, JON E Referring Unavailable HOY, LATRICIA M Primary Care Unavailable MICHELLE, JON E Referring Unavailable HOY, LATRICIA M Primary Care Unavailable MICHELLE, JON E Referring Unavailable HOY, LATRICIA M Primary Care Unavailable MICHELLE, JON E Referring Unavailable HOY, LATRICIA M Primary Care Unavailable MICHELLE, JON E Referring Unavailable HOY, LATRICIA M Primary Care Unavailable MICHELLE, JON E Referring Unavailable HOY, LATRICIA M Primary Care Unavailable MICHELLE, JON E Referring Unavailable HOY, LATRICIA M Primary Care Unavailable MICHELLE, JON E Admitting Unavailable MICHELLE, JON E Attending Unavailable HOY, LATRICIA M Primary Care Unavailable MICHELLE, JON E Referring Unavailable HOY, LATRICIA M Primary Care Unavailable Allergies Allergy Classification Reported Allergen(s) Allergy Type Date of Onset Reaction(s) Facility (7 sources) Naproxen; Translations: [naproxen] Drug Allergy 3 Unknown (qualifier value), Nausea And Vomiting [facility] (1 source) Naproxen Drug Allergy [facility] Medications Current Medications Medication Drug Class(es) Dates Sig (Normalized) Sig (Original) celecoxib 200 mg oral capsule (3 sources) Nonsteroidal Anti-inflammatory Drug take 1 capsule by mouth once daily celecoxib (CELEBREX) 200 MG capsule Take 1 capsule by mouth daily 0 Active cyclobenzaprine (1 source) Muscle Relaxant Start: 07-21-2022 cyclobenzaprine Oral Start Date: 07/21/22 Status: Ordered gabapentin 600 mg oral tablet (3 sources) Anti-epileptic Agent take 0.5 tablet by mouth twice daily gabapentin (NEURONTIN) 600 MG tablet Take 0.5 tablets by mouth 2 times daily. 0 Active methocarbamol 750 mg oral tablet (3 sources) Muscle Relaxant take 1 tablet by mouth twice daily methocarbamol (ROBAXIN) 750 MG tablet Take 1 tablet by mouth 2 times daily 0 Active ondansetron 4 mg oral tablet (1 source) Serotonin-3 Receptor Antagonist Start: 07-21-2022 take 1 tablet by mouth every six hours as needed for nausea Zofran 4 mg Tab 4 mg = 1 tab(s), Oral, q6hr, PRN Nausea/Vomiting, # 20 tab(s), Refills(s) 0, called to pharmacy (Rx) Start Date: 07/21/22 Status: Ordered pantoprazole 20 mg delayed release oral tablet (3 sources) Proton Pump Inhibitor take 2 tablets by mouth once daily pantoprazole (PROTONIX) 20 MG tablet Take 2 tablets by mouth nightly 0 Active tamsulosin hydrochloride 0.4 mg oral capsule (1 [...] procedure., # 2 cap(s), Refills(s) 0, Pharmacy: [id number] Start Date: 05/12/22 Status: Ordered Problems Active Problems Problem Classification Problem Date Documented Da [...] source) Dehydration; Translations: [DEHYDRATION] Onset: 07-14-2022 Episodic Joint disorders and dislocations; trauma-related (2 sources) Unspecified dislocation of right patella, initial encounter; Translations: [Unspecified dislocation of right patella, initial encounter] Onset: 05-17-2023 Episodic Miscellaneous mental health disorders (2 sources) [...] PANCREATITIS WO NECRS/INF UNS] Onset: 07-14-2022 Episodic Spondylosis; intervertebral disc disorders; other back problems (1 source) Other dorsalgia; Translations: [OTHER DORSALGIA] Onset: 07-22-2022 Episodic Substance-related disorders (2 sources) Nicotine dependence, cigarettes, uncomplicated; Translations: [Cannabis abuse, uncomplicated] Onset: 07-26-2022 Chronic Unclassified (1 source) CONTACT W/AND (SUSP) EXPOS COVID-19; Translations: [CONTACT W/AND (SUSP) EXPOS COVID-19] Onset: 07-14-2022 Viral infection (2 sources) Herpes simplex 07-13-2022 Episodic Past or Other Problems Problem Classification Problem Date Documented Date Episodic/Chronic Residual codes; unclassified (1 source) Other specified postprocedural states; Translations: [Other specified postprocedural states] Onset: 03-13-2023 Episodic Results Test Name Value Interpretation Reference [...] Alfonso Charles MD 03/13/23 Final result Normal [facility] OPERATIVE REPORTon OPERATIVE REPORT [address] [id number] OPERATIVE REPORT PATIENT NAME: ETHAN DONALD : 1990 MED REC NO: [id number] ROOM: ACCOUNT NO: [id number] ADMIT DATE: 03/13/2023 PROVIDER: Jon Reynoso DATE OF PROCEDURE: 03/13/2023 PREOPERATIVE DIAGNOSES: 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 POSTOPERATIVE DIAGNOSES: 1. Subluxing patella. 2. Chondromalacia. 3. [place]-Schlatter disease. PROCEDURES PERFORMED: Arthroscopy of right knee with: 1. Chondroplasty. 2. Lateral release. 3. Mini arthrotomy with excision of [place]-Schlatter ossicle. SURGEON: Dr. Jon Reynoso. ANESTHESIA: General. DESCRIPTION OF PROCEDURE: The [...] tendon was then split longitudinally and the Darell--Schlatter ossicle was removed from the tendon. X-ray was obtained to verify that all the Darell--Schlatter ossicle had been removed. The tendon was then oversewn with 2-0 Vicryl interrupted [id number] sutures. Skin margins were injected with 0.5% [...] Return to the office in two weeks. JON REYNOSO [id number] Doc#: [id number] CC: Normal [facility] Basic Metabolic Profon 02-16 Anion gap [Moles/Vol] 11 mmol/L Normal - [facility] Comment on above: Performed By: #### B WENDY, CDP #### [facility] [address] [place] [address] Quantitative Research Analyst: Ramo Jesus MD BUN/CRE Ratio 9 Normal - [facility] Comment on above: Performed By: #### Marquez NGUYEN, CDP #### [facility] [address] [place] [address] Quantitative Research Analyst: Ramo Jesus MD Calcium [Mass/Vol] 9.7 mg/dL Normal 8.6-10.4 [facility] Comment on above: Performed By: #### Marquez NGUYEN, CDP #### [facility] [address] [place] [address] Quantitative Research Analyst: Ramo Jesus MD Chloride [Moles/Vol] 100 mmol/L Normal 98-107 [facility] Comment on above: Performed By: #### Marquez NGUYEN, CDP #### [facility] [address] [place] [address] Quantitative Research Analyst: Ramo Jesus MD CO2 [Moles/Vol] 27 mmol/L Normal 20-31 [facility] Comment on above: Performed By: #### Marquez NGUYEN, CDP #### [facility] [address] [place] [id number] Quantitative Research Analyst: Ramo Jesus MD Creatinine [Mass/Vol] 1.2 mg/dL Normal 0.7-1.2 [facility] Comment on above: Performed By: #### B WENDY, CDP #### [facility] [address] [place] [address] Quantitative Research Analyst: Ramo Jesus MD GFR/1.73 sq M.predicted among non-blacks MDRD (S/P/Bld) [Vol rate/Area] mL/min/{1.73_m2} Normal >60 [facility] Comment on above: Result Comment: These [...] Performed By: #### B WENDY, CDP #### [facility] [address] [place], [place] [id number] Quantitative Research Analyst: Ramo Jesus MD Glucose [Mass/Vol] 115 mg/dL High 70-99 [facility] Comment on above: Performed By: #### B WENDY, CDP #### [facility] [address] [place] [address] Quantitative Research Analyst: Ramo Jesus MD Potassium [Moles/Vol] 3.9 mmol/L Normal 3.7-5.3 [facility] Comment on above: Performed By: #### B WENDY, CDP #### [facility] [address] [place] [id number] Quantitative Research Analyst: Ramo Jesus MD Sodium [Moles/Vol] 138 mmol/L Normal 135-144 [facility] Comment on above: Performed By: #### B WENDY, CDP #### [facility] [address] [place] [address] Quantitative Research Analyst: Ramo Jesus MD Urea nitrogen [Mass/Vol] 11 mg/dL Normal 6-20 [facility] Comment on above: Performed By: #### B WENDY, CDP #### [facility] [address] [place] [address] Quantitative Research Analyst: Ramo Jesus MD CBC with Diffon 02-16-2023 Abs. Basophil 0.07 k/uL Normal 0.00-0.20 [facility] Comment on above: Performed By: #### B WENDY, CDP #### [address] [place] [address] Quantitative Research Analyst: Ramo Jesus MD Abs.Imm.Granulocyte 0.04 k/uL Normal 0.00-0.30 [facility] Comment on above: Performed By: #### B WENDY, CDP #### [address] [place] [address] Quantitative Research Analyst: Ramo Jesus MD Abs.Neutrophil (Seg) 5.65 k/uL Normal 1.50-8.10 [facility] Comment on above: Performed By: #### B WENDY, CDP #### [address] [place], [place] [id number] Quantitative Research Analyst: Ramo Jesus MD Basophils/100 WBC (Bld) 1 % Normal 0-2 [facility] Comment on above: Performed By: #### B WENDY, CDP #### [facility] [address] [place] [address] [place] [address] Quantitative Research Analyst: Ramo Jesus MD Eosinophils (Bld) [#/Vol] 0.14 10*3/uL Normal 0.00-0.44 [facility] Comment on above: Performed By: #### B WENDY, CDP #### [address] [place] [address] Quantitative Research Analyst: Ramo Jesus MD Eosinophils/100 WBC (Bld) 2 % Normal 1-4 [facility] Comment on above: Performed By: #### B MP, CDP #### [facility] [address] [place] [address] Quantitative Research Analyst: Ramo Jesus MD Erythrocyte distribution width (RBC) [Ratio] 12.1 % Normal 11.8-14.4 [facility] Comment on above: Performed By: #### B MP, CDP #### [facility] [address] [place], [facility] Quantitative Research Analyst: Ramo Jesus MD Hematocrit (Bld) [Volume fraction] 44.9 % Normal 40.7-50.3 [facility] Comment on above: Performed By: #### B WENDY, CDP #### [facility] [address] [place], [facility] Quantitative Research Analyst: Ramo Jesus MD Hemoglobin (Bld) [Mass/Vol] 15.2 g/dL Normal 13.0-17.0 [facility] Comment on above: Performed By: #### B WENDY, CDP #### [facility] [address] [place] [address] Quantitative Research Analyst: Ramo Jesus MD Immature granulocytes/100 WBC (Bld) 1 % High 0 [facility] Comment on above: Performed By: #### B MP, CDP #### [facility] [address] [place], [facility] Quantitative Research Analyst: Ramo Jesus MD Lymphocytes (Bld) [#/Vol] 2.02 10*3/uL Normal 1.10-3.70 [facility] Comment on above: Performed By: #### B MP, CDP #### [facility] [address] [place], [place] [id number] Quantitative Research Analyst: Ramo Jesus MD Lymphocytes/100 WBC (Bld) 24 % Normal 24-43 [facility] Comment on above: Performed By: #### B MP, CDP #### [facility] [address] [place] [address] Quantitative Research Analyst: Ramo Jesus MD MCH (RBC) [Entitic mass] 31.6 pg Normal 25.2-33.5 [facility] Comment on above: Performed By: #### B MP, CDP #### [address] [place] [address] Quantitative Research Analyst: Ramo Jesus MD MCHC (RBC) [Mass/Vol] 33.9 g/dL Normal 28.4-34.8 [facility] Comment on above: Performed By: #### B MP, CDP #### [address] [place] [address] Quantitative Research Analyst: Ramo Jesus MD MCV (RBC) [Entitic vol] 93.3 fL Normal 82.6-102.9 [facility] Comment on above: Performed By: #### B MP, CDP #### [address] [place], [place] [address] Quantitative Research Analyst: Ramo Jesus MD Monocytes (Bld) [#/Vol] 0.60 10*3/uL Normal 0.10-1.20 [facility] Comment on above: Performed By: #### B MP, CDP #### [address] [place], [place] [address] Quantitative Research Analyst: Ramo Jesus MD Monocytes/100 WBC (Bld) 7 % Normal 3-12 [facility] Comment on above: Performed By: #### B MP, CDP #### [facility] [address] [place] [address] Quantitative Research Analyst: Ramo Jesus MD Neutrophil (Seg) 65 % Normal 36-65 [facility] Comment on above: Performed By: #### B MP, CDP #### [facility] [address] [place] [address] [place] [place], [facility]83 Quantitative Research Analyst: Ramo Jesus MD NRBC Automated 0.0 per 100 WBC Normal 0.0 [facility] Comment on above: Performed By: #### B WENDY, CDP #### [facility] [address] [place], [place] [address] Quantitative Research Analyst: Ramo Jesus MD Platelet mean volume (Bld) [Entitic vol] 9.7 fL Normal 8.1-13.5 [facility] Comment on above: Performed By: #### B WENDY, CDP #### [facility] [address] [place], [place] [id number] Quantitative Research Analyst: Ramo Jesus MD Platelets (Bld) [#/Vol] 252 10*3/uL Normal 138-453 [facility] Comment on above: Performed By: #### B WENDY, CDP #### [facility] [address] [place], [place] [id number] Quantitative Research Analyst: Ramo Jesus MD RBC (Bld) [#/Vol] 4.81 10*6/uL Normal 4.21-5.77 [facility] Comment on above: Performed By: #### Marquez NGUYEN, CDP #### [address] [place], [place] [address] Quantitative Research Analyst: Ramo Jesus MD WBC (Bld) [#/Vol] 8.5 10*3/uL Normal 3.5-11.3 [facility] Comment on above: Performed By: #### B WENDY, CDP #### [facility] [address] [place], [place] [address] Quantitative Research Analyst: Ramo Jesus MD GROUP A STREP CULTUREon 07-30 S. pyogenes Ag Ql (Unsp spec) Culture Observations: NEGATIVE FOR GROUP A STREPTOCOCCUS. Normal [facility] Comment on above: Performed By: #### S SCRN, GRASTCX #### [facility] [address] [address] [address] Pratibha Stevenson STREPT SCREENon 08-11-2022 STREP SCREEN A Negative Normal NEGATIVE [facility] Comment on above: Performed By: #### S SCRN, GRASTCX #### [facility] [address] [place] [address] Dr. Pratibha Stevenson AMYLASEon 07-23-2022 Amylase [Catalytic activity/Vol] 50 U/L Normal 25-115 [facility] Comment on above: Performed By: #### E RUR #### [facility] [address] [place] [address] Dr. Pratibha Stevenson CBC AUTO DIFFon 07-23-2022 BASO # 0.1 103/ul Normal 0.0-0.1 [facility] Comment on above: Performed By: #### L ACT #### [facility] [address] [place] [address] Dr. Pratibha Stevenson Basophils/100 WBC (Bld) 1.0 % Normal 0.2-2.0 [facility] Comment on above: Performed By: #### L ACT #### [facility] [address] [place] [address] Dr. Pratibha Stevenson EO # 0.1 103/ul Normal 0.0-0.7 [facility] Comment on above: Performed By: #### L ACT #### [facility] [address] [place] [address] Dr. Pratibha Stevenson Eosinophils/100 WBC (Bld) 1.7 % Normal 0.9-7.0 [facility] Comment on above: Performed By: #### L ACT #### [facility] [address] [place] [address] Dr. Pratibha Stevenson Erythrocyte distribution width (RBC) [Ratio] 12.1 % Normal 11.0-15.0 [facility] Comment on above: Performed By: #### L ACT #### [facility] [address] [place] [address] Dr. Pratibha Stevenson Hematocrit (Bld) [Volume fraction] 45.9 % Normal 42.0-54.0 [facility] Comment on above: Performed By: #### L ACT #### [facility] [address] [place] [address] Dr. Pratibha Stevenson Hemoglobin (Bld) [Mass/Vol] 15.6 g/dL Normal 14.0-18.0 [facility] Comment on above: Performed By: #### L ACT #### [facility] [address] [place] [address] Dr. Pratibha Stevenson IG # 0.01 10e3/ul Normal 0.00-0.03 [facility] Comment on above: Performed By: #### L ACT #### [facility] [address] [place] [address] Dr. Pratibha Stevenson IG % 0.1 % Normal 0.0-0.5 [facility] Comment on above: Performed By: #### L ACT #### [facility] [address] [place] [address] Dr. Pratibha Stevenson LYMPH # 2.0 103/ul Normal 1.2-3.8 [facility] Comment on above: Performed By: #### L ACT #### [facility] [address] [place] [address] Dr. Pratibha Stevenson Lymphocytes/100 WBC (Bld) 28.8 % Normal 20.5-60.0 [facility] Comment on above: Performed By: #### L ACT #### [facility] [address] [place] [address] Dr. Pratibha Stevenson MANUAL DIFF REQ NO Normal [facility] Comment on above: Performed By: #### L ACT #### [facility] [address] [place] [address] Dr. Pratibha Stevenson MCH (RBC) [Entitic mass] 31.3 pg Normal 25.9-34.0 [facility] Comment on above: Performed By: #### L ACT #### [facility] [address] [place] [address] Dr. Pratibha Stevenson MCHC (RBC) [Mass/Vol] 34.0 g/dL Normal 29.9-35.2 [facility] Comment on above: Performed By: #### L ACT #### [facility] [address] [place] [address] Dr. Pratibha Stevenson MCV (RBC) [Entitic vol] 92.2 fL Normal 80.0-94.0 [facility] Comment on above: Performed By: #### L ACT #### [facility] [address] [place] [address] Dr. Pratibha Stevenson MONO # 0.3 103/ul Normal 0.3-0.8 [facility] Comment on above: Performed By: #### L ACT #### [facility] [address] [place] [address] Dr. Pratibha Stevenson Monocytes/100 WBC (Bld) 4.3 % Normal 1.7-12.0 [facility] Comment on above: Performed By: #### L ACT #### [facility] [address] [place] [address] Dr. Pratibha Stevenson NEUT # 4.5 103/ul Normal 1.4-6.5 [facility] Comment on above: Performed By: #### L ACT #### [facility] [address] [place] [address] Dr. Pratibha Stevenson Neutrophils/100 WBC (Bld) 64.1 % Normal 43.0-75.0 [facility] Comment on above: Performed By: #### L ACT #### [facility] [address] [place] [address] Dr. Pratibha Stevenson Platelet mean volume (Bld) [Entitic vol] 10.3 fL Normal 9.5-13.5 [facility] Comment on above: Performed By: #### L ACT #### [facility] [address] [place] [address] Dr. Pratibha Stevenson PLT 219 103/ul Normal 150-450 [facility] Comment on above: Performed By: #### L ACT #### [facility] [address] [place] [address] Dr. Pratibha Stevenson RBC 4.98 106/ul Normal 4.70-6.10 [facility] Comment on above: Performed By: #### L ACT #### [facility] [address] [place] [address] Dr. Pratibha Stevenson WBC 7.1 103/ul Normal 4.0-11.0 [facility] Comment on above: Performed By: #### L ACT #### [facility] [address] [address] [address] ABD/PELV W CONon 07-24-[address] [...] YING WALTON Date: 2022-07-22 23:53 Normal [facility] DRUG SCREEN RAPID (URINE)on 07-23-2022 AMP Negative Normal NEGATIVE [facility] Comment on above: Performed By: #### E RUR #### [facility] [address] [place] [address] Dr. Pratibha Stevenson [facility] Negative Normal NEGATIVE [facility] Comment on above: Performed By: #### E RUR #### [facility] [address] [address] [address] Pratibha Stevenson [facility] Negative Normal NEGATIVE [facility] Comment on above: Performed By: #### E RUR #### [facility] [address] [place] [address] Dr. Pratibha Stevenson BZO Negative Normal NEGATIVE [facility] Comment on above: Performed By: #### E RUR #### [facility] [address] [place] [address] Dr. Pratibha Stevenson EMELY Negative Normal NEGATIVE [facility] Comment on above: Performed By: #### E RUR #### [facility] [address] [place] [address] Dr. Pratibha Stevenson CUT-OFFS SEE BELOW Normal [facility] Comment on above: Result Comment: AMP (Amphetamine): 500ng/mL, BAR (Barbituates): 200 ng/mL, BZO (Benzodiazepines): 150 ng/mL, BUP (Buprenorphine): 10 ng/mL, EMELY (Cocaine): 150 ng/mL, mAMP (Methamphetamine): 500 ng/mL, MTD (Methadone): 200 ng/mL, OPI (Opiates): 100 ng/mL, OXY (Oxycodone): 100 ng/mL, PCP (Phencyclidine): 25 ng/mL, PPX (Propoxyphene): 300 ng/mL, THC (Cannabinoids): 50 ng/mL, TCA (Trycyclic Antidepressants): 300 ng/mL Performed By: #### E RUR #### [facility] [address] [place] [address] Dr. Pratibha Stevenson DRUG CUT HEADER DRUG CLASS TEST SYST EM CUT-OFF CONCENTRATIONS ARE FOLLOWS: Normal [facility] Comment on above: Performed By: #### E RUR #### [facility] [address] [place] [address] Dr. Pratibha Stevenson mAMP Negative Normal NEGATIVE [facility] Comment on above: Performed By: #### E RUR #### [facility] [address] [place] [address] Dr. Pratibha Stevenson MTD Negative Normal NEGATIVE [facility] Comment on above: Performed By: #### E RUR #### [facility] [address] [place] [address] Dr. Pratibha Stevenson OPI Positive Abnormal NEGATIVE [facility] Comment on above: Performed By: #### E RUR #### [facility] [address] [place] [address] Dr. Pratibha Stevenson OXY Negative Normal NEGATIVE [facility] Comment on above: Performed By: #### E RUR #### [facility] [address] [place] [address] Dr. Pratibha Stevenson PCP Negative Normal NEGATIVE [facility] Comment on above: Performed By: #### E RUR #### [facility] [address] [place] [address] Dr. Pratibha Stevenson PPX Negative Normal NEGATIVE [facility] Comment on above: Performed By: #### E RUR #### [facility] [address] [place] [address] Dr. Pratibha Stevenson TCA Positive Abnormal NEGATIVE [facility] Comment on above: Performed By: #### E RUR #### [facility] [facility] [address] [place] [address] Dr. Pratibha Stevenson THC Positive Abnormal NEGATIVE [facility] Comment on above: Performed By: #### E RUR #### [facility] [address] [place] [address] Dr. Pratibha Stevenson ER URINE PROFILEon 3 Bilirubin Ql (U) Negative Normal NEGATIVE [facility] Comment on above: Performed By: #### E RUR #### [facility] [address] [place] [address] Dr. Pratibha Stevenson Clarity (U) CLEAR Normal CLEAR [facility] Comment on above: Performed By: #### E RUR #### [facility] [address] [place] [address] Dr. Pratibha Stevenson Color (U) LT. YELLOW Normal YELLOW [facility] Comment on above: Performed By: #### E RUR #### [facility] [address] [place] [address] Dr. Pratibha RIOS A micrscopic examination will be performed if indicated. Normal [facility] Comment on above: Performed By: #### E RUR #### [facility] [address] [place] [address] Dr. Pratibha Stevenson Glucose Ql (U) Negative Normal NEGATIVE [facility] Comment on above: Performed By: #### E RUR #### [facility] [address] [place] [address] Dr. Pratibha Stevenson Hemoglobin Ql (U) Negative Normal NEGATIVE [facility] Comment on above: Performed By: #### E RUR #### [facility] [address] [place] [address] Dr. Pratibha Stevenson Ketones Ql (U) Negative Normal NEGATIVE [facility] Comment on above: Performed By: #### E RUR #### [facility] [address] [place] [address] Dr. Pratibha Stevenson LEUKOCYTES Negative Normal NEGATIVE [facility] Comment on above: Performed By: #### E RUR #### [facility] [address] [place] [address] Dr. Pratibha Stevenson Nitrite Ql (U) Negative Normal NEGATIVE [facility] Comment on above: Performed By: #### E RUR #### [facility] [address] [place] [address] Dr. Pratibha Stevenson pH (U) 5.5 [pH] Normal 5-9 [facility] Comment on above: Performed By: #### E RUR #### [facility] [address] [place] [address] Dr. Pratibha Stevenson SPEC GRAVITY <=1.005 Abnormal 1.005-<=1.025 [facility] Comment on above: Performed By: #### E RUR #### [facility] [address] [place] [address] Dr. Pratibha Stevenson UA PROTEIN Negative Normal NEGATIVE/ TRACE [facility] Comment on above: Performed By: #### E RUR #### [facility] [address] [place] [address] Dr. Pratibha Stevenson UR MICRO IND NOT INDICATED Normal [facility] Comment on above: Performed By: #### E RUR #### [facility] [address] [place] [address] Dr. Pratibha Stevenson Urobilinogen Qn (U) 0.2 {Butch'U}/dL Normal 0.2 - 1. 0 [facility] Comment on above: Performed By: #### E RUR #### [facility] [address] [place] [address] Dr. Pratibha Stevenson LIPASEon 07-23-2022 Lipase [Catalytic activity/Vol] 126.0 U/L Normal 73.0-393.0 [facility] Comment on above: Performed By: #### E RUR #### [facility] [address] [place] [address] Dr. Pratibha Stevenson PROF 14(COMP METB)on 023 Albumin [Mass/Vol] 4.2 g/dL Normal 3.4-5.0 [facility] Comment on above: Performed By: #### E RUR #### [facility] [address] [place] [address] Dr. Pratibha Stevenson Albumin/Globulin [Mass ratio] 1.4 {ratio} Normal [facility] Comment on above: Performed By: #### E RUR #### [facility] [address] [place] [address] Dr. Pratibha Stevenson ALP [Catalytic activity/Vol] 87 U/L Normal 46-116 [facility] Comment on above: Performed By: #### E RUR #### [facility] [address] [place] [address] Dr. Pratibha Stevenson ALT [Catalytic activity/Vol] 20 U/L Normal 16-63 [facility] Comment on above: Performed By: #### E RUR #### [facility] [address] [place] [address] Dr. Pratibha Stevenson Anion gap [Moles/Vol] 12.8 mmol/L Normal [facility] Comment on above: Performed By: #### E RUR #### [facility] [address] [place] [address] Dr. Pratibha Stevenson AST [Catalytic activity/Vol] 18 U/L Normal 15-37 [facility] Comment on above: Performed By: #### E RUR #### [facility] [address] [place] [address] Dr. Pratibha Stevenson Bilirubin [Mass/Vol] 0.5 mg/dL Normal 0.2-1.0 [facility] Comment on above: Performed By: #### E RUR #### [facility] [address] [place] [address] Dr. Pratibha Stevenson Calcium [Mass/Vol] 9.2 mg/dL Normal 8.5-10.1 [facility] Comment on above: Performed By: #### E RUR #### [facility] [address] [address] [address] Pratibha Stevenson Chloride [Moles/Vol] 101 mmol/L Normal 98-107 [facility] Comment on above: Performed By: #### E RUR #### [facility] [address] [place] [address] Dr. Pratibha Stevenson CO2 [Moles/Vol] 24.7 mmol/L Normal 21.0-32.0 [facility] Comment on above: Performed By: #### E RUR #### [facility] [address] [place] [address] Dr. Pratibha Stevenson Creatinine [Mass/Vol] 1.20 mg/dL Normal 0.70-1.30 [facility] Comment on above: Performed By: #### E RUR #### [facility] [address] [place] [address] Dr. Pratibha Stevenson EGFR-AF IRANIAN >60 Normal >=60 [facility] Comment on above: Performed By: #### E RUR #### [facility] [address] [place] [address] Dr. Pratibha Stevenson EGFR-NON AF IRANIAN >60 Normal >=60 [facility] Comment on above: Performed By: #### E RUR #### [facility] [address] [place] [address] Dr. Pratibha Stevenson Globulin (S) [Mass/Vol] 3.1 g/dL Normal [facility] Comment on above: Performed By: #### E RUR #### [facility] [address] [place] [address] Dr. Pratibha Stevenson Glucose [Mass/Vol] 128 mg/dL Critically high 74-106 [facility] Comment on above: Performed By: #### E RUR #### [facility] [address] [place] [address] Dr. Pratibha Stevenson Potassium [Moles/Vol] 3.5 mmol/L Normal 3.5-5.1 [facility] Comment on above: Performed By: #### E RUR #### [facility] [address] [place] [address] Dr. Pratibha Stevenson Protein [Mass/Vol] 7.3 g/dL Normal 6.4-8.2 [facility] Comment on above: Performed By: #### E RUR #### [facility] [address] [place] [address] Dr. Pratibha Stevenson Sodium [Moles/Vol] 135 mmol/L Critically low 136-145 [facility] Comment on above: Performed By: #### E RUR #### [facility] [address] [place] [address] Dr. Pratibha Stevenson Urea nitrogen [Mass/Vol] 10.0 mg/dL Normal 7.0-18.0 [facility] Comment on above: Performed By: #### E RUR #### [facility] [address] [place] [address] Dr. Pratibha Stevenson Urea nitrogen/Creatinine [Mass ratio] 8.3 mg/mg Normal [facility] Comment on above: Performed By: #### E RUR #### [facility] [address] [place] [address] Dr. Pratibha Stevenson Screenson 07-22-2022 Screens [id number]. 00CD:127 Normal [facility] Screens [id number]. 00CD:127 Normal [facility] Patient Educationon 07-22-19 Patient Education Urology Dietary [...] Rhubarb. ? Beets. ? Potato chips and pakistani fries. ? Nuts. ? If you regularly take a diuretic medicine, make sure to eat at least 1?2 fruits or vegetables high in potassium each day. These include: ? Avocado. ? Banana. ? [place], prune, carrot, or tomato juice. ? Baked [...] and other foods Seasoning blends with salt. Spencer loco (more content not included)... Normal [facility] Urology Office/Clinic Noteon 07-21-2022 Urology Office/Clinic Note Chief Complaint pt here for a hospital f/u for kidney stones HPI Staff Pt is a 31 yr old Male here today for a hospital f/u from [facility] for a kidney stone. CT scan done 07/20/22 shows Bilateral nonobstructive renal calculi. No hydronephrosis or hydroureter hepatomegaly. Pts previous DX: kidney stone, ureteral stone. IPSS 26. Pt states he started feeling pain on Monday in the right upper back area and presented to the ER on Monday. Pt had CT scans done at [facility]. Pt states the pain is now moving [...] of urinary calculi) Urology consult 05/08/22 at [facility] due to 4-5 mm Ureteral Stone S/P Lt Ureteroscopy, Laser Litho (dusting), Lt stent placement 05/08/22 - Extensive Brenden's plaques noted Cysto/Lt stent removal 05/23/22. No hydro on f/u renal US. No passage of fragments noted. Follow-up With When Contact Information Shirley Murrell MD, URL, URO Additional Instructions: Patient Education Dietary [...] calculus (05/08/2022) (more content not included)... Normal [facility] Comment on above: Result Comment: Elec tronically Signed By: Shirley Murrell MD\.br\Date and Time Signed: 07/21/22 16:55 EDT\.br\Electronically Co-Signed By: Shalini Macias\.br\Date and Time Co-Signed: 07/21/22 09:40 EDT CBC AUTO DIFFon 07-20-2022 BASO # 0.1 103/ul Normal 0.0-0.1 [facility] Comment on above: Performed By: #### C BC #### [facility] [address] [address] [address] Pratibha Stevenson Basophils/100 WBC (Bld) 0.7 % Normal 0.2-2.0 [facility] Comment on above: Performed By: #### C BC #### [facility] [address] [place] [address] Dr. Pratibha Stevenson EO # 0.2 103/ul Normal 0.0-0.7 [facility] Comment on above: Performed By: #### C BC #### [facility] [address] [place] [address] Dr. Pratibha Stevenson Eosinophils/100 WBC (Bld) 2.4 % Normal 0.9-7.0 [facility] Comment on above: Performed By: #### C BC #### [facility] [address] [place] [address] Dr. Pratibha Stevenson Erythrocyte distribution width (RBC) [Ratio] 12.4 % Normal 11.0-15.0 [facility] Comment on above: Performed By: #### C BC #### [facility] [address] [place] [address] Dr. Pratibha Stevenson Hematocrit (Bld) [Volume fraction] 45.8 % Normal 42.0-54.0 [facility] Comment on above: Performed By: #### C BC #### [facility] [address] [place] [address] Dr. Pratibha Stevenson Hemoglobin (Bld) [Mass/Vol] 15.6 g/dL Normal 14.0-18.0 [facility] Comment on above: Performed By: #### C BC #### [facility] [address] [place] [address] Dr. Pratibha Stevenson IG # 0.03 10e3/ul Normal 0.00-0.03 [facility] Comment on above: Performed By: #### C BC #### [facility] [address] [place] [address] Dr. Pratibha Stevenson IG % 0.4 % Normal 0.0-0.5 [facility] Comment on above: Performed By: #### C BC #### [facility] [address] [place] [address] Dr. Pratibha Stevenson LYMPH # 3.0 103/ul Normal 1.2-3.8 [facility] Comment on above: Performed By: #### C BC #### [facility] [address] [place] [address] Dr. Pratibha Stevenson Lymphocytes/100 WBC (Bld) 34.7 % Normal 20.5-60.0 [facility] Comment on above: Performed By: #### C BC #### [facility] [address] [place] [address] Dr. Pratibha Stevenson MANUAL DIFF REQ NO Normal [facility] Comment on above: Performed By: #### C BC #### [facility] [address] [place] [address] Dr. Pratibha Stevenson MCH (RBC) [Entitic mass] 31.3 pg Normal 25.9-34.0 [facility] Comment on above: Performed By: #### C BC #### [facility] [address] [place] [address] Dr. Pratibha Stevenson MCHC (RBC) [Mass/Vol] 34.1 g/dL Normal 29.9-35.2 [facility] Comment on above: Performed By: #### C BC #### [facility] [address] [place] [address] Dr. Pratibha Stevenson MCV (RBC) [Entitic vol] 92.0 fL Normal 80.0-94.0 [facility] Comment on above: Performed By: #### C BC #### [facility] [address] [place] [address] Dr. Pratibha Stevenson MONO # 0.5 103/ul Normal 0.3-0.8 [facility] Comment on above: Performed By: #### C BC #### [facility] [address] [place] [address] Dr. Pratibha Stevenson Monocytes/100 WBC (Bld) 5.9 % Normal 1.7-12.0 [facility] Comment on above: Performed By: #### C BC #### [facility] [address] [place] [address] Dr. Pratibha Stevenson NEUT # 4.8 103/ul Normal 1.4-6.5 [facility] Comment on above: Performed By: #### C BC #### [facility] [address] [place] [address] Dr. Pratibha Stevenson Neutrophils/100 WBC (Bld) 55.9 % Normal 43.0-75.0 [facility] Comment on above: Performed By: #### C BC #### [facility] [address] [place] [address] Dr. Pratibha Stevenson Platelet mean volume (Bld) [Entitic vol] 10.0 fL Normal 9.5-13.5 [facility] Comment on above: Performed By: #### C BC #### [facility] [address] [place] [address] Dr. Pratibha Stevenson PLT 243 103/ul Normal 150-450 [facility] Comment on above: Performed By: #### C BC #### [facility] [address] [place] [address] Dr. Pratibha Stevenson RBC 4.98 106/ul Normal 4.70-6.10 [facility] Comment on above: Performed By: #### C BC #### [facility] [address] [place], [place] [id number] Dr. Pratibha Stevenson WBC 8.5 103/ul Normal 4.0-11.0 [facility] Comment on above: Performed By: #### C BC #### [facility] [address] [place], [place] [id number] Dr. Pratibha Stevenson CT ABD/PELVIS WO CONon [...] ROSALINO VIDALES Date: 2022-07-20 04:12 Normal [facility] ER URINE PROFILEon 3 Bilirubin Ql (U) Negative Normal NEGATIVE [facility] Comment on above: Performed By: #### L ACT #### [facility] [address] [place] [address] Dr. Pratibha Stevenson Clarity (U) CLEAR Normal CLEAR [facility] Comment on above: Performed By: #### L ACT #### [facility] [address] [place] [address] Dr. Pratibha Stevenson Color (U) LT. YELLOW Normal YELLOW [facility] Comment on above: Performed By: #### L ACT #### [facility] [address] [place] [address] Dr. Pratibha Stevenson ERUAHD A micrscopic examination will be performed if indicated. Normal [facility] Comment on above: Performed By: #### L ACT #### [facility] [address] [place] [address] Dr. Pratibha Stevenson Glucose Ql (U) Negative Normal NEGATIVE [facility] Comment on above: Performed By: #### L ACT #### [facility] [address] [place] [address] Dr. Pratibha Stevenson Hemoglobin Ql (U) Negative Normal NEGATIVE [facility] Comment on above: Performed By: #### L ACT #### [facility] [address] [place] [address] Dr. Pratibha Stevenson Ketones Ql (U) Negative Normal NEGATIVE [facility] Comment on above: Performed By: #### L ACT #### [facility] [address] [place] [address] Dr. Pratibha Stevenson LEUKOCYTES Negative Normal NEGATIVE [facility] Comment on above: Performed By: #### L ACT #### [facility] [address] [place] [address] Dr. Pratibha Stevenson Nitrite Ql (U) Negative Normal NEGATIVE [facility] Comment on above: Performed By: #### L ACT #### [facility] [address] [place] [address] Dr. Pratibha Stevenson pH (U) 6.0 [pH] Normal 5-9 [facility] Comment on above: Performed By: #### L ACT #### [facility] [address] [place] [address] Dr. Pratibha Stevenson SPEC GRAVITY <=1.005 Abnormal 1.005-<=1.025 [facility] Comment on above: Performed By: #### L ACT #### [facility] [address] [place] [address] Dr. Pratibha Stevenson UA PROTEIN Negative Normal NEGATIVE/ TRACE [facility] Comment on above: Performed By: #### L ACT #### [facility] [address] [place] [address] Dr. Pratibha Stevenson UR MICRO IND NOT INDICATED Normal [facility] Comment on above: Performed By: #### L ACT #### [facility] [address] [place] [address] Dr. Pratibha Stevenson Urobilinogen Qn (U) 0.2 {Butch'U}/dL Normal 0.2 - 1. 0 [facility] Comment on above: Performed By: #### L ACT #### [facility] [address] [place] [address] Dr. Pratibha Stevenson LACTATE/LACTIC ACIDon 2022 Lactate [Moles/Vol] 0.8 mmol/L Normal 0.4-2.0 [facility] Comment on above: Performed By: #### L ACT #### [facility] [address] [place] [address] Dr. Pratibha Stevenson PROF 14(COMP METB)on 023 Albumin [Mass/Vol] 4.3 g/dL Normal 3.4-5.0 [facility] Comment on above: Performed By: #### E RUR #### [facility] [address] [place] [address] Dr. Pratibha Stevenson Albumin/Globulin [Mass ratio] 1.3 {ratio} Normal [facility] Comment on above: Performed By: #### E RUR #### [facility] [address] [place] [address] Dr. Pratibha Stevenson ALP [Catalytic activity/Vol] 94 U/L Normal 46-116 [facility] Comment on above: Performed By: #### E RUR #### [facility] [address] [place] [address] Dr. Pratibha Stevenson ALT [Catalytic activity/Vol] 23 U/L Normal 16-63 [facility] Comment on above: Performed By: #### E RUR #### [facility] [address] [place] [address] Dr. Pratibha Stevenson Anion gap [Moles/Vol] 10.5 mmol/L Normal [facility] Comment on above: Performed By: #### E RUR #### [facility] [address] [place] [address] Dr. Pratibha Stevenson AST [Catalytic activity/Vol] 21 U/L Normal 15-37 [facility] Comment on above: Performed By: #### E RUR #### [facility] [address] [place] [address] Dr. Pratibha Stevenson Bilirubin [Mass/Vol] 0.5 mg/dL Normal 0.2-1.0 [facility] Comment on above: Performed By: #### E RUR #### [facility] [address] [place] [address] Dr. Pratibha Stevenson Calcium [Mass/Vol] 9.3 mg/dL Normal 8.5-10.1 [facility] Comment on above: Performed By: #### E RUR #### [facility] [address] [place] [address] Dr. Pratibha Stevenson Chloride [Moles/Vol] 102 mmol/L Normal 98-107 [facility] Comment on above: Performed By: #### E RUR #### [facility] [address] [place] [address] Dr. Pratibha Stevenson CO2 [Moles/Vol] 26.2 mmol/L Normal 21.0-32.0 [facility] Comment on above: Performed By: #### E RUR #### [facility] [address] [address] [address] Pratibha Stevenson Creatinine [Mass/Vol] 1.18 mg/dL Normal 0.70-1.30 [facility] Comment on above: Performed By: #### E RUR #### [facility] [address] [address] [address] Pratibha Stevenson EGFR-AF IRANIAN >60 Normal >=60 [facility] Comment on above: Performed By: #### E RUR #### [facility] [address] [place] [address] Dr. Pratibha Stevenson EGFR-NON AF IRANIAN >60 Normal >=60 [facility] Comment on above: Performed By: #### E RUR #### [facility] [address] [place] [address] Dr. Pratibha Stevenson Globulin (S) [Mass/Vol] 3.2 g/dL Normal [facility] Comment on above: Performed By: #### E RUR #### [facility] [address] [place] [address] Dr. Pratibha Stevenson Glucose [Mass/Vol] 115 mg/dL Critically high 74-106 [facility] Comment on above: Performed By: #### E RUR #### [facility] [address] [place] [address] Dr. Pratibha Stevenson Potassium [Moles/Vol] 3.7 mmol/L Normal 3.5-5.1 [facility] Comment on above: Performed By: #### E RUR #### [facility] [address] [place] [address] Dr. Pratibha Stevenson Protein [Mass/Vol] 7.5 g/dL Normal 6.4-8.2 [facility] Comment on above: Performed By: #### E RUR #### [facility] [address] [place] [address] Dr. Pratibha Stevenson Sodium [Moles/Vol] 135 mmol/L Critically low 136-145 [facility] Comment on above: Performed By: #### E RUR #### [facility] [address] [place], [place] [address] Dr. Pratibha Stevenson Urea nitrogen [Mass/Vol] 11.0 mg/dL Normal 7.0-18.0 [facility] Comment on above: Performed By: #### E RUR #### [facility] [address] [place], [place] [address] Dr. Pratibha Stevenosn Urea nitrogen/Creatinine [Mass ratio] 9.3 mg/mg Normal [facility] Comment on above: Performed By: #### E RUR #### [facility] [address] [address] [address] Pratibha Stevenson TROPONIN, HIGH SENSITIVITYon 07-20-2022 HSTROP 5.0 pg/mL Normal 4.0-76.1 [facility] Comment on above: Result Comment: CUT- OFF POINTS HAVE BEEN ESTABLISHED BASED ON THE FOURTH UNIVERSAL DEFINITIONS OF MYOCARDIAL INFARCTION. THE UPPER REFERENCE LIMIT (URL) OF TROPONIN, DEFINED THE 99TH PERCENTILE OF cTnI DISTRIBUTION IN A REFERENCE POPULATION, HAS BEEN CONFIRMED THE DECISION THRESHOLD FOR [place] DIAGNOSIS. Performed By: #### E RUR #### [facility] [address] [address] [address] Pratibha Stevenson Formson 07-15-2022 Forms [id number]#1.0 0CD:127 Normal [facility] Screenson 07-15-2022 Screens [id number]#1.0 0CD:127 Normal [facility] Screens [id number]#1.0 0CD:127 Normal [facility] Patient Educationon 07-14-19 Patient Education Urology Dietary Guidelines to Help [...] Rhubarb. ? Beets. ? Potato chips and pakistani fries. ? Nuts. ? If you regularly take a diuretic medicine, make sure to eat at least 1?2 fruits or vegetables high in potassium each day. These include: ? Avocado. ? Banana. ? [place], prune, carrot, or tomato juice. ? Baked [...] dr (more content not included)... Normal [facility] Urology Office/Clinic Noteon 07-13-2022 Urology Office/Clinic Note Chief Complaint Pt is here for PO stent removal HPI Staff Ethan is a 31 y.o. male new patient here for [facility] ER follow up. Urology consult done 05/08/22 @ [facility] due to 4-5mm Ureteral Stone. S/P [...] for age, normal judgement, euthymic mood. Assessment/Plan Ethan is a 31 yo male new patient following up to [facility] ER. IPSS 13. MARGOTH 14. 1. Ureteral stone (N20.1: Calculus of ureter) Urology consult 05/08/22 at [facility] due to 4-5 mm Ureteral Stone [...] mgmt options Follow up 6 mos with [facility], met workup or sooner if needed. Pt understands and agrees with plan. -90 fl oz daily goal -lab slip given for blood work -dietary modifications. -24 hr urine -Pt to call for f/u after metabolic workup completed. Declined scheduled f/u Follow-up With When Contact Information Handy WILEY, Shirley Menchaca, URL, URO Additional Instructions: 6 mos, [facility], met workup Patient Education Dietary Guidelines to [...] 12/26/1997 Recor (more content not included)... Normal [facility] Comment on above: Result Comment: Elec tronically Signed By: Shirley Murrell MD\.br\Date and Time Signed: 07/13/22 16:53 EDT\.br\Electronically Co-Signed By: Shalini Macias.br\Date and Time Co-Signed: 07/13/22 10:29 EDT RAD - MISCon 07-11-2022 RAD - MISC [id number]#1.0 0CD:127 Normal [facility] RAD - Ultrasound Reporton RAD - Ultrasound Report [id number]#1.0 0CD:127 Normal [facility] [facility] KIDNEYSon 07-06-2022 US KIDNEYS EXAMINATION: US [...] by: RAMO BLAKE Date: 2022-07-06 11:14 [facility] XR KUB 1 VIEWon 07-06-2022 XR KUB [...] by: SAUMYA MARSH Date: 2022-07-06 11:57 Normal [facility] Coding Summary.on 05-30-2022 Coding Summary. CD:[id number] Gh 0bWw+PGhlYWQ+MA9GIKJxP 21vnDNxiU6QM1vCJW4WEVQ KUYRWEG0CUW9lnPV5ZEhsL 2VybiAv TfgcsNCgFQ06WWc2CKW8cZ xtSNmapB1ntHXhJ0c8YuLk EM60dR66AQnrDPWcUkR4Go ZpbjsgbWFy G5gqZwHstNNlLfj+PHRhYm xlIHdpZHRoPScxMDAlJyBz tIqdRI2zBr1lWPMmJBTwzK xhcHNlOiBj d6qmRQEaNCopHP4kvQieP4 RktVN6EMGhr3s9Wm90aHD+ ZRJrCOR4mAdfCXdif507Bk Wkn6ydDIV7 wQPxSFadDGY1R39zk9J1RS VcKPHxBTJ9cNW3vJ9oyJzb gootG4PaeUIqTnL8UHN3aW OajE0ufTru rzwgzJ3eYre+F75FPO5ZKO DIRB0EFdq0B9EeLwiihAS+ RR48IFUmVF08hURykSMjp2 ndlUo6MfQp OYYwADU5sUhkVXvfs9KmXL MaH01vqJHbl5Y1EWRikTsa dXAjBeJpoPJ0sP1nMWtgmy sku3yqrxnt Juido2oxkx62jM20D09vKY nbAEMqBML1DLMxINCpvDfa ok5jvT2vLh7+MQxiu9jzk5 verLr9OoOj NPVgnyJegZcsCJC7f3SiCq 44U7GgkVxcz8AoOpp7di62 rIBeg8L0dRC0BMtbWCBxlI 0qMWvtDlB2 EXBwUdBnzT60bOAaVMzyUq 0dlJjlrGyvNJ6gIHOnsgyt MWPqiJ4aDXSlqAFshCtrTU 4wNTBpbjtm e444CaDbJXH6RHUpzTPcP6 OujS7wTrDrTONtWPMpZ6Ie dNTnUDhkS366XOxiRiD2IM VrcgFqU4Yk SHRivQfbJbH0q0R5Tx3Sn3 NgifxvETE6JJhmWDIvHbNm NbNcFdW7G6YtVik4CPXmtZ knOP5rD1Yc OAWgpjdxxjlprUD1SCPpPT WijO55kYRcETonSb4xa6Q9 k566HNJxEOYxsG51Vz3yyP ogMTBwdCBU bF2muevpn8coeegtWpYnJT FpWXi2MOp2UWSmnCucBfZv ROQ7HbY9ROD5kBNahW9tkU aqnzzyrA6r Oyc+J42naV3mAGI5AHS8ir xvNSPwpfQnHD19ET96I1Yw PjwvdGFibGU+PGRpdiBzdH fzVQ8vLzFp a7eic0LiBRdvJ7XjPGVqLZ khYwi0CJMdRDA0fVD3jW4t XCYfCIgfe1P7mZL6Y4Sejg Lrqu5dw4it PRArFNlwV77yeRNoj2J3RP VnjUG0FAGdvUcfOsCntU96 Oyc+RQOefNvfh5HtAwyrc7 vcf0qhcUn0 MwXzNLJfnyUqsIshBMK4a5 JcCg18H26tUBnqXPOdNKDi WPHrRKOhqVqebb7jfL4rAo 8+PGNvbCB3 yGI4dC6oHNXcUjU4SVllI6 41QiNtiIVxMhkwq2ecf1il pWx6AuZfJZObcmOzwQssYW Y6l6LvAg90 V73vWFhyJLPlODKvNBTrRA WadKytrr4oqN5rMv0+PC9j y5tecs09kZ57bXT+PHRkIH Z1kJwwFUcm PVWufU6tWQztVgN8WJLoIe QqcB88mULuLReyIs8szMep yFciDV4fHLKsuturg087Rm Ija0bjAVFu aKOwQRihTXE0F00gy8S7FT EeSWFxVUT9rOC5hM0yzXsk bjogbGVmdDsgdmVydGljYW fsTVjzE603 IHRvcDsnPlBhdGllbnQgTm ElAHy2K4RjHcx6YXBdiFcv OR9sgSQmUHnlQk3bzKttvR beKB5xSKNz hzbpz778FwQfh2raXCSbhZ QhDXlcAOC1A95gk9N4ZPWd HHUvARE7vCY9iR5gyFyijc ogbGVmdDsg tuWqjNrnTVncGTmuK305NN RvcDsnPkJpcnRoIERhdGU6 KX30QH21pHSuv2C8oKN1M0 BhZGRpbmct rkowuDI7VZNtMMUqnG58Og 9qvQipEy9bTPKwNUY4FTCo hTRaL3OoyK5hFzUgOGQmVB KdB2SjjFOq TSuiJ197WZzrFuZ0XKAnmv EmN6IjAIIjiJqlBwF1b8I4 Bt8PP6C6ZC14RX38qKIja7 G3ePU4M5Gl YJUakupoasddpJC6BFUjAA FxdR84Zv8inCyqRw4dVRGi JKT7GULmoBRhD3XhdZ5zYv AjMDAwMDAw N7MefWMiREceB320NIdeSx C8BJJzirJjG0IbVXNriWqy GwA4r5K2Fi6SFEp1JK60FG 53aQEbl2Y8 fME0A0JhFUFmkbmoqqzlcN U0MSYpSDBdoK37Bk8owRmp Hu8cHVOmCZR0MRPipOGmV0 DduP5iFjMd ZFQyBQIqA7LfhRUhFUvvW8 30VHinHaR8OYIswsFkP4Bi QYLgbLkpVmE5e0X4Lp4SCO XcUU45HOL1 qMT0LG67IB13Q9XnSbjgyV FibGU+PHRhYmxlIHdpZHRo IIdbDFZoCxDhyCkhLU1dPf 9yZGVyLWNv nTodvXSySyLsa2ffOIGcXU laUV5obXccR7UsqLD0BGQq t6r7Me92L43hO5WlfSA+PG WsxTW4uBW1 pU7rZfKdJiH3BOnoF363Zv SoiUJgKkyki8mjh1bbdJk2 VgD4AZMzxfIcaTmeMOQ9n7 BpAh54U71m IHdpZHRoPSIxNSUiIHZhbG lrls0fiS0sMo2+PGNvbCB3 kFV7uX6jKdCqCbW4RHliA0 49InRvcCIv Xocqy0vsa3ijdIm4CgGbHX MqqeVwoEpbCSY2r0UxQl92 R8TvhHkva5KoFsc9hx51uR Rrn4F0tBT8 J0XxJAEzjmrqmNXnjXjlQV 4rLWDdyzckLBVbvQ1iZJCe Z0r5YyFgLfO1IPifR9Tvjg R2PDArwYSo MDjpZNP2D42is9V0ZPLlWS KcFDG3kCQ4dJ5omDntcyjl bGVmdDsgdmVydGljYWwtYW dtS302BYBt gUzsVXBieP2gFWEwlJYewP xqDJ6kNCJfsdtwAkMMQIGV LgeyACDHU26sLGljeAN+PH GmJGB0vYzs CDnvDDRveL7bHBBgU2n8Wa PoSwU5MMgoO6ZuQQZfmena Cm63kX4cTxXsZxF4XFueC0 WsweA6ZEHc wKMwUBypGAK3M28if6X1NF NyWREpRGB4eXC7cP4axMtz bjogbGVmdDsgdmVydGljYW aeASnaG458 NKTffLypTkS7BtW1EnO4WK M0D3AdIps9QOIqhZrrUN3x jPMvFWlqVp8piKvvvWjaOC 4wNTBpbjtw IKOkkT4cFGAzuFLnzWqtOS 5dNULlbmzoc391IgHyBGC8 SJSdhDBxU3ItnN1tZiCrAW WzDOEbN9Cd bJCmMHeoK025QNvzMjM5TZ XiaiTzE1JiEFGemRcmBxM3 n4O3Ec3kBDTUMUUogpwbvJ Q+PHRkIHN0 qDejFTrmAITyuA3kGWWdU8 d5JrXjAaM5YCrqZ1FnQLVp qyylMq84aF8lEtHkYjU2EB wiS0NvbpF5 CVLwxYJgDHrdOVH0K43cy6 T2MLEjFDNgHRP8hHM3rE7f bGlnbjogbGVmdDsgdmVydG ljYWwtYWxp V430GFCshGyvWw2ycYK3Y8 JvWae9KWJxnAdcNO2prOVn JModPk9mkIqxcTsrAQ2uRH BpbjtwYWRk wA5sLNUplYLsyYjzWJ3nGU Aligshu381ZgAcFHM8KPMg eWEoZ2HkiO9cRrCjJOEvFN KdO0EqjCZd OEbnY691DVhrFtE7OYYybd BfW5CzPXCitHycElR0h2I5 Ri6WwVTfZSKlGL84BN80HM 73O9UaCfwd dGFibGU+PHRhYmxlIHdpZH JhJZhyURYqOwAcpLeoAH7l Fg6uTWSlNNJfxTjsdOClYi Bgr2piJCUu NRulQT7eePeqW6HzpYC2QS Yjc6q0Fe14P70nG0RvdGS+ HNYorPE0fUY5dW9rKkWtLr M1NKusE307 KyDqzYBaNoeda0hlb8msxZ h7DzUzGVYmnwVpaKkoHNW4 o2WjJu27W82bUEudWJAwRZ IyMCUiIHZh mPnkbg9tiB1kXo3+PGNvbC W9uYR7rS0dElQxKvO2OErw T359EvAnlLNgAgubR45oP6 JvdXA+PHRy Kag0TZPkdWhiRR4pfEBzJH poTa0oSSS7EwAfSySpBObg B8VsDBUcogqxgtbajEE6YJ BbAWWmoR69 Wt8juZiyNz3uGRJcUOI5XB OhrZBmY2UclF5rFhDeLZVn EDFnK4KhfCDcOPstA542AX wpAhG1BGJt voYoB4LyTEZwkDpcReT1p8 C3Fl6VuEspdKVkXP2dJfHh KDq7A1RtZji0GCBnlXnpIM 0ncGFkZGlu Pf2bbMwtgPqsJC4uVFNuzs kuj917PaVsh1zuMVJwzSSr INykAIH7A61sc2X2IFNtAA QoVGI8pRW5 wG8jdNzkreakmCLqgCwnjf FfaRwrEFzeYGdwA169KGXx dMsfHiRTZzv0O5SjJzu4XY SqkWxhQN9m cTJwQNosAz8zzUnonLgdKY 2nMYVhwfgij325YlMoa6gv WNFagYLiGSysOGF1L61bg6 U9RQQjAWYk YLK4eMB1vU2mvPfxzlicwZ VmdDsgdmVydGljYWwtYWxp E331GQCitBbnNk0VXjy9O2 ZuIzh7MGVv bRhpJD7syMZzFVgwEr2gtU yxrOhbPV4vKKOapulpm426 GyKmr5pxQPHdnEFlILrhOA G7X40wf9F6 YIGtNMWfQLV6nJN3sY8nqU lnbjogbGVmdDsgdmVydGlj GJwyTLfhE922BVHxxAdkWk BheWVyOjwv dGQ+DQ17go76S4JxScryRj d9WKFhOBQ5fWL8oQ0yEHFj UGluf5C4tGC5V3YyhzPlmh 3bo1peQYNj ZTog (more content not included)... Normal [facility] Operative Reporton 3 Operative Report Patient: AUDREY DONALD L Age: 31 years Sex: Male : 1990 Associated Diagnoses: None Author: Shirley Murrell MD Procedure Operative Information Details: Date/ Time: 05/23/2022 10:00:00. Pre-Op Dx: Kidney stone ([id number]-JM N20.0, Billing Diagnosis, Medical), Foreign Body in [...] including serum labs and 24-hour urine . [facility] Comment on above: Result Comment: Elec tronically Signed By: Shirley Murrell MD\.br\Date and Time Signed: 05/27/22 17:07 EST Consent for Procedure/Surger yon 05-26-2022 Consent for Procedure/Surgery [id number]#1.0 0CD:127 [facility] IntraOperative Documentson 0 05-26-2022 IntraOperative Documents [id number]#1.0 0CD:127 [facility] Formson 05-24-2022 Forms [id number]#1.0 0CD:127 [facility] Consent for Treatmenton 05-02 Consent for Treatment [id number]#1.0 0CD:127 Normal [facility] Main OR Intraoperative Recor don 05-23-2022 Main OR Intraoperative Record IntraOp Document Type FTURO Summary Primary Physician: Shirley Murrell MD Finalized Date/Time: 05/23/22 10:14:49 Pt. Name: ETHAN DONALD Hannah Yoon/Sex: 1990 Male Med Rec #: [id number] Physician: Shirley Murrell MD Financial #: [id number] Pt. Type: O Room/Bed: / Admit/Disch: 05/23/22 08:41:51 - Institution: Case Times FTURO Entry 1 Patient Times In Room 05/23/22 10:05:00 Out Room 05/23/22 10:21:00 Procedure Times Start 05/23/22 10:11:00 Stop 05/23/22 10:16:00 Anesthesia Times Last Modified By: Yumi CAMARILLO, NICOLE, Marlyn 05/23/22 10:14:32 Case Attendance FTURO Entry 1 Entry 2 Entry 3 Case Attendee Handy WILEY, Shirley Eason RN, CNOR, Leandra REYES, Nereida Cline Role Performed Surgeon - Primary Licensed Investment Sales Assistant - Primary Scrub - Primary Time In 05/23/22 10:05:00 05/23/22 10:05:00 05/23/22 10:05:00 Time Out 05/23/22 10:21:00 05/23/22 10:21:00 05/23/22 10:21:00 Procedure CYSTOSCOPY LOCAL WITH CYSTOSCOPY LOCAL WITH CYSTOSCOPY LOCAL WITH STENT REMOVAL(Left) STENT REMOVAL(Left) STENT REMOVAL(Left) Comments Last Modified By: Yumi RN, CNOR, Yumi RN, MICHELLEOR, Yumi RN, MICHELELOR, Marlyn 05/23/22 Marlyn 05/23/22 Marlyn 05/23/22 10:14:33 10:14:33 10:14:33 Surgical Procedures FTURO Entry 1 Procedure Description Procedure CYSTOSCOPY LOCAL WITH Modifiers Left STENT REMOVAL Surgeon Description CYSTOSCOPY LEFT STENT REMOVAL Primary Procedure Yes Primary Surgeon Shirley Murrell MD Start 05/23/22 10:11:00 Stop 05/23/22 10:16:00 Anesthesia Type Local Surgical Service Urology Wound Class 2 - Clean-Contaminated Last Modified By: NICOLE Eason RN, Ruthann 05/23/22 10:14:34 General Case Data FTURO Pre-Care Text: Classifies surgical wound, implements aseptic technique, initiates traffic control Entry 1 Case Information OR URO 1 FT Case Level None Wound Class 2 - Clean-Contaminated Specialty Urology Preop Diagnosis KIDNEY STONES Postop Same As Preop Yes Postop Diagnosis KIDNEY STONES Outcomes Met? Yes Last Modified By: NICOLE Eason RN, Ruthann 05/23/22 10:08:35 Post-Care Text: The patient is [...] Position Verified Availability Equipment, Medication Time Out Shirley Murrell MD, Verified (If Participants Yumi CAMARILLO, MICHELLEOR, Applicable) Leandra Cline CST, Julie A Time [...] NICOLE Eason RN, Ruthann 05/23/22 10:14 Normal [facility] Main OR Preoperative Recordo n 05-23-2022 Main OR Preoperative Record Holding Area Document Type FTURO Summary Primary Physician: Shirley Murrell MD Finalized Date/Time: 05/23/22 10:11:23 Pt. Name: ETHAN DONALD Hannah Shook./Sex: 1990 Male Med Rec #: [id number] Physician: Shirley Murrell MD Financial #: [id number] Pt. Type: O Room/Bed: / Admit/Disch: 05/23/22 [...] Comment: difficulty voiding, not Skin Integrity Intact, [place], Warm, & feeling empty, pain in Dry scrotal area SEVERE 7 Constant, denies swelling Vitals - EU Blood Pressure 111/74 Pulse 63 bpm Respirations 16 br/min SPO2 96 % RN Reviewed Yes Last Modified By: NICOLE Eason RN, Ruthann 05/23/22 10:11:21 General Comments: remp:36.1 Finalized By: NICOLE Eason RN, Ruthann Document Signatures Signed By: Willie HODGES [place] 05/23/22 09:28 NICOLE Eason RN, Ruthann 05/23/22 10:11 Normal [facility] Insurance Correspondence Off iceon 05-17-2022 Insurance Correspondence Office [id number]#1. 00CD:127 Normal [facility] ED Note-Physicianon 05-14-19 ED Note-Physician [id number]#1.0 0CD:127 [facility] RAD - CT Reporton 05-14-[address]22 RAD - CT Report [id number]#1. 00CD:127 Normal [facility] RAD - CT Report [id number]#1. 00CD:127 Normal [facility] RAD - MISCon 05-14-2022 RAD - MISC [id number]#1. 00CD:127 Normal [facility] RAD - MISC [id number]#1. 00CD:127 Normal [facility] RAD - MISC [id number]#1. 00CD:127 Normal [facility] RAD - Ultrasound Reporton RAD - Ultrasound Report [id number]#1. 00CD:127 Normal [facility] AMYLASEon 05-12-2022 Amylase [Catalytic activity/Vol] 39 U/L Normal 25-115 [facility] Comment on above: Performed By: #### E RUR #### [facility] [address] [place] [address] Dr. Pratibha Stevenson CBC AUTO DIFFon 05-12-2022 BASO # 0.0 103/ul Normal 0.0-0.1 [facility] Comment on above: Performed By: #### L ACT #### [facility] [address] [place] [address] Dr. Pratibha Stevenson Basophils/100 WBC (Bld) 0.2 % Normal 0.2-2.0 [facility] Comment on above: Performed By: #### L ACT #### [facility] [address] [place] [address] Dr. Pratibha Stevenson EO # 0.0 103/ul Normal 0.0-0.7 [facility] Comment on above: Performed By: #### L ACT #### [facility] [address] [place] [address] Dr. Pratibha Stevenson Eosinophils/100 WBC (Bld) 0.0 % Critically low 0.9-7.0 [facility] Comment on above: Performed By: #### L ACT #### [facility] [address] [place] [address] Dr. Pratibha Stevenson Erythrocyte distribution width (RBC) [Ratio] 11.7 % Normal 11.0-15.0 [facility] Comment on above: Performed By: #### L ACT #### [facility] [address] [place] [address] Dr. Pratibha Stevenson Hematocrit (Bld) [Volume fraction] 43.0 % Normal 42.0-54.0 [facility] Comment on above: Performed By: #### L ACT #### [facility] [address] [place] [address] Dr. Pratibha Stevenson Hemoglobin (Bld) [Mass/Vol] 13.9 g/dL Critically low 14.0-18.0 [facility] Comment on above: Performed By: #### L ACT #### [facility] [address] [place] [address] Dr. Pratibha Stevenson IG # 0.03 10e3/ul Normal 0.00-0.03 [facility] Comment on above: Performed By: #### L ACT #### [facility] [address] [place] [address] Dr. Pratibha Stevenson IG % 0.3 % Normal 0.0-0.5 [facility] Comment on above: Performed By: #### L ACT #### [facility] [address] [place] [address] Dr. Pratibha Stevenson LYMPH # 0.8 103/ul Critically low 1.2-3.8 [facility] Comment on above: Performed By: #### L ACT #### [facility] [address] [place] [address] Dr. Pratibha Stevenson Lymphocytes/100 WBC (Bld) 8.6 % Critically low 20.5-60.0 [facility] Comment on above: Performed By: #### L ACT #### [facility] [address] [place] [address] Dr. Pratibha Stevenson MANUAL DIFF REQ NO Normal [facility] Comment on above: Performed By: #### L ACT #### [facility] [address] [place] [address] Dr. Pratibha Stevenson MCH (RBC) [Entitic mass] 31.0 pg Normal 25.9-34.0 [facility] Comment on above: Performed By: #### L ACT #### [facility] [address] [place] [address] Dr. Pratibha Stevenson MCHC (RBC) [Mass/Vol] 32.3 g/dL Normal 29.9-35.2 [facility] Comment on above: Performed By: #### L ACT #### [facility] [address] [place] [address] Dr. Pratibha Stevenson MCV (RBC) [Entitic vol] 96.0 fL Critically high 80.0-94.0 [facility] Comment on above: Performed By: #### L ACT #### [facility] [address] [place] [address] Dr. Pratibha Stevenson MONO # 0.4 103/ul Normal 0.3-0.8 [facility] Comment on above: Performed By: #### L ACT #### [facility] [address] [place] [address] Dr. Pratibha Stevenson Monocytes/100 WBC (Bld) 4.5 % Normal 1.7-12.0 [facility] Comment on above: Performed By: #### L ACT #### [facility] [address] [place] [address] Dr. Pratibha Stevenson NEUT # 8.4 103/ul Critically high 1.4-6.5 [facility] Comment on above: Performed By: #### L ACT #### [facility] [address] [place] [address] Dr. Pratibha Stevenson Neutrophils/100 WBC (Bld) 86.4 % Critically high 43.0-75.0 [facility] Comment on above: Performed By: #### L ACT #### [facility] [address] [place] [address] Dr. Pratibha Stevenson Platelet mean volume (Bld) [Entitic vol] 10.6 fL Normal 9.5-13.5 [facility] Comment on above: Performed By: #### L ACT #### [facility] [address] [place] [address] Dr. Pratibha Stevenson PLT 227 103/ul Normal 150-450 [facility] Comment on above: Performed By: #### L ACT #### [facility] [address] [place] [address] Dr. Pratibha Stevenson RBC 4.48 106/ul Critically low 4.70-6.10 [facility] Comment on above: Performed By: #### L ACT #### [facility] [address] [place] [address] Dr. Pratibha Stevenson WBC 9.7 103/ul Normal 4.0-11.0 [facility] Comment on above: Performed By: #### L ACT #### [facility] [address] [place] [address] Dr. Pratibha Stevenson Consent for Procedure/Surger yon 05-12-2022 Consent for Procedure/Surgery [id number]#1.0 0CD:127 Normal [facility] LIPASEon 05-12-2022 Lipase [Catalytic activity/Vol] 110.0 U/L Normal 73.0-393.0 [facility] Comment on above: Performed By: #### E RUR #### [facility] [address] [place] [address] Dr. Pratibha Stevenson Operative Reporton 3 Operative Report [id number]#1.0 0CD:127 Normal [facility] Operative Report [id number]#1.0 0CD:127 Normal [facility] Comment on above: Other Comment: SAMMI TAY PROF 14(COMP METB)on 023 Albumin [Mass/Vol] 3.3 g/dL Critically low 3.4-5.0 [facility] Comment on above: Performed By: #### E RUR #### [facility] [address] [place] [address] Dr. Pratibha Stevenson Albumin/Globulin [Mass ratio] 1.2 {ratio} Normal [facility] Comment on above: Performed By: #### E RUR #### [facility] [address] [place] [address] Dr. Pratibha Stevenson ALP [Catalytic activity/Vol] 68 U/L Normal 46-116 [facility] Comment on above: Performed By: #### E RUR #### [facility] [address] [place] [address] Dr. Pratibha Stevenson ALT [Catalytic activity/Vol] 27 U/L Normal 16-63 [facility] Comment on above: Performed By: #### E RUR #### [facility] [address] [place] [address] Dr. Pratibha Stevenson Anion gap [Moles/Vol] 10.4 mmol/L Normal [facility] Comment on above: Performed By: #### E RUR #### [facility] [address] [place] [address] Dr. Pratibha Stevenson AST [Catalytic activity/Vol] 25 U/L Normal 15-37 [facility] Comment on above: Performed By: #### E RUR #### [facility] [address] [address] [address] Pratibha Stevenson Bilirubin [Mass/Vol] 0.5 mg/dL Normal 0.2-1.0 [facility] Comment on above: Performed By: #### E RUR #### [facility] [address] [place] [address] Dr. Pratibha Stevenson Calcium [Mass/Vol] 8.8 mg/dL Normal 8.5-10.1 [facility] Comment on above: Performed By: #### E RUR #### [facility] [address] [place] [address] Dr. Pratibha Stevenson Chloride [Moles/Vol] 105 mmol/L Normal 98-107 [facility] Comment on above: Performed By: #### E RUR #### [facility] [address] [place] [address] Dr. Pratibha Stevenson CO2 [Moles/Vol] 26.5 mmol/L Normal 21.0-32.0 [facility] Comment on above: Performed By: #### E RUR #### [facility] [address] [place] [address] Dr. Pratibha Stevenson Creatinine [Mass/Vol] 1.15 mg/dL Normal 0.70-1.30 [facility] Comment on above: Performed By: #### E RUR #### [facility] [address] [place] [address] Dr. Pratibha Stevenson EGFR-AF IRANIAN >60 Normal >=60 [facility] Comment on above: Performed By: #### E RUR #### [facility] [address] [place] [address] Dr. Pratibha Stevenson EGFR-NON AF IRANIAN >60 Normal >=60 [facility] Comment on above: Performed By: #### E RUR #### [facility] [address] [place] [address] Dr. Pratibha Stevenson Globulin (S) [Mass/Vol] 2.7 g/dL Normal [facility] Comment on above: Performed By: #### E RUR #### [facility] [address] [place] [address] Dr. Pratibha Stevenson Glucose [Mass/Vol] 119 mg/dL Critically high 74-106 [facility] Comment on above: Performed By: #### E RUR #### [facility] [address] [place] [address] Dr. Pratibha Stevenson Potassium [Moles/Vol] 3.9 mmol/L Normal 3.5-5.1 [facility] Comment on above: Performed By: #### E RUR #### [facility] [address] [place] [address] Dr. Pratibha Stevenson Protein [Mass/Vol] 6.0 g/dL Critically low 6.4-8.2 [facility] Comment on above: Performed By: #### E RUR #### [facility] [address] [place] [address] Dr. Pratibha Stevenson Sodium [Moles/Vol] 138 mmol/L Normal 136-145 [facility] Comment on above: Performed By: #### E RUR #### [facility] [address] [place] [address] Dr. Pratibha Stevenson Urea nitrogen [Mass/Vol] 7.0 mg/dL Normal 7.0-18.0 [facility] Comment on above: Performed By: #### E RUR #### [facility] [address] [place] [address] Dr. Pratibha Stevenson Urea nitrogen/Creatinine [Mass ratio] 6.1 mg/mg Normal [facility] Comment on above: Performed By: #### E RUR #### [facility] [address] [place] [address] Dr. Pratibha Stevenson XR KUB 1 VIEWon [...] as clinically indicated. Electronically authenticated by: ROSALINO SAID Date: 2022-05-12 06:43 Normal [facility] AMYLASEon 05-11-2022 Amylase [Catalytic activity/Vol] 52 U/L Normal 25-115 [facility] Comment on above: Performed By: #### C MP, GREG, LIPA #### [facility] [address] [place] [address] Dr. Pratibha Stevenson CBC AUTO DIFFon 05-11-2022 BASO # 0.0 103/ul Normal 0.0-0.1 [facility] Comment on above: Performed By: #### C BC #### [facility] [address] [place] [address] Dr. Pratibha Stevenson Basophils/100 WBC (Bld) 0.6 % Normal 0.2-2.0 [facility] Comment on above: Performed By: #### C BC #### [facility] [address] [place] [address] Dr. Pratibha Stevenson EO # 0.2 103/ul Normal 0.0-0.7 [facility] Comment on above: Performed By: #### C BC #### [facility] [address] [place] [address] Dr. Pratibha Stevenson Eosinophils/100 WBC (Bld) 2.3 % Normal 0.9-7.0 [facility] Comment on above: Performed By: #### C BC #### [facility] [address] [place] [address] Dr. Pratibha Stevenson Erythrocyte distribution width (RBC) [Ratio] 11.7 % Normal 11.0-15.0 [facility] Comment on above: Performed By: #### C BC #### [facility] [address] [place] [address] Dr. Pratibha Stevenson Hematocrit (Bld) [Volume fraction] 42.4 % Normal 42.0-54.0 [facility] Comment on above: Performed By: #### C BC #### [facility] [address] [place] [address] Dr. Pratibha Stevenson Hemoglobin (Bld) [Mass/Vol] 14.3 g/dL Normal 14.0-18.0 [facility] Comment on above: Performed By: #### C BC #### [facility] [address] [place] [address] Dr. Pratibha Stevenson IG # 0.01 10e3/ul Normal 0.00-0.03 [facility] Comment on above: Performed By: #### C BC #### [facility] [address] [place] [address] Dr. Pratibha Stevenson IG % 0.2 % Normal 0.0-0.5 [facility] Comment on above: Performed By: #### C BC #### [facility] [address] [place] [address] Dr. Pratibha Stevenson LYMPH # 2.8 103/ul Normal 1.2-3.8 [facility] Comment on above: Performed By: #### C BC #### [facility] [address] [place] [address] Dr. Pratibha Stevenson Lymphocytes/100 WBC (Bld) 41.8 % Normal 20.5-60.0 [facility] Comment on above: Performed By: #### C BC #### [facility] [address] [place] [address] Dr. Pratibha Stevenson MANUAL DIFF REQ NO Normal [facility] Comment on above: Performed By: #### C BC #### [facility] [address] [place] [address] Dr. Pratibha Stevenson MCH (RBC) [Entitic mass] 31.0 pg Normal 25.9-34.0 [facility] Comment on above: Performed By: #### C BC #### [facility] [address] [place] [address] Dr. Pratibha Stevenson MCHC (RBC) [Mass/Vol] 33.7 g/dL Normal 29.9-35.2 [facility] Comment on above: Performed By: #### C BC #### [facility] [address] [place] [address] Dr. Pratibha Stevenson MCV (RBC) [Entitic vol] 92.0 fL Normal 80.0-94.0 [facility] Comment on above: Performed By: #### C BC #### [facility] [address] [place] [address] Dr. Pratibha Stevenson MONO # 0.5 103/ul Normal 0.3-0.8 [facility] Comment on above: Performed By: #### C BC #### [facility] [address] [place] [address] Dr. Pratibha Stevenson Monocytes/100 WBC (Bld) 7.9 % Normal 1.7-12.0 [facility] Comment on above: Performed By: #### C BC #### [facility] [address] [place] [address] Dr. Pratibha Stevenson NEUT # 3.1 103/ul Normal 1.4-6.5 [facility] Comment on above: Performed By: #### C BC #### [facility] [address] [place] [address] Dr. Pratibha Stevenson Neutrophils/100 WBC (Bld) 47.2 % Normal 43.0-75.0 [facility] Comment on above: Performed By: #### C BC #### [facility] [address] [place] [address] Dr. Pratibha Stevenson Platelet mean volume (Bld) [Entitic vol] 10.7 fL Normal 9.5-13.5 [facility] Comment on above: Performed By: #### C BC #### [facility] [address] [place] [address] Dr. Pratibha Stevenson PLT 216 103/ul Normal 150-450 [facility] Comment on above: Performed By: #### C BC #### [facility] [address] [place] [address] Dr. Pratibha Stevenson RBC 4.61 106/ul Critically low 4.70-6.10 [facility] Comment on above: Performed By: #### C BC #### [facility] [address] [place] [address] Dr. Pratibha Stevenson WBC 6.6 103/ul Normal 4.0-11.0 [facility] Comment on above: Performed By: #### C BC #### [facility] [address] [place], [place] [address] ABD/PELVIS WO CONon [...] SAUMYA MARSH Date: 2022-05-11 08:31 Normal [facility] LIPASEon 05-11-2022 Lipase [Catalytic activity/Vol] 241.0 U/L Normal 73.0-393.0 [facility] Comment on above: Performed By: #### C MP, GREG, LIPA #### [facility] [address] [place] [address] [address] Pratibha Stevenson PROF 14(COMP METB)on 023 Albumin [Mass/Vol] 3.6 g/dL Normal 3.4-5.0 [facility] Comment on above: Performed By: #### C MP, GREG, LIPA #### [facility] [address] [address] [address] Pratibha Stevenson Albumin/Globulin [Mass ratio] 1.2 {ratio} Normal [facility] Comment on above: Performed By: #### C MP, GREG, LIPA #### [facility] [address] [address] [address] Pratibha Stevenson ALP [Catalytic activity/Vol] 75 U/L Normal 46-116 [facility] Comment on above: Performed By: #### C MP, GREG, LIPA #### [facility] [address] [place] [address] Dr. Pratibha Stevenson ALT [Catalytic activity/Vol] 28 U/L Normal 16-63 [facility] Comment on above: Performed By: #### C MP, GREG, LIPA #### [facility] [address] [address] [address] Pratibha Stevenson Anion gap [Moles/Vol] 9.7 mmol/L Normal [facility] Comment on above: Performed By: #### C MP, GREG, LIPA #### [facility] [address] [place] [address] Dr. Pratibha Stevenson AST [Catalytic activity/Vol] 19 U/L Normal 15-37 [facility] Comment on above: Performed By: #### C MP, GREG, LIPA #### [facility] [address] [address] [address] Pratibha Stevenson Bilirubin [Mass/Vol] 0.5 mg/dL Normal 0.2-1.0 [facility] Comment on above: Performed By: #### C MP, GREG, LIPA #### [facility] [address] [address] [address] Pratibha Stevenson Calcium [Mass/Vol] 9.1 mg/dL Normal 8.5-10.1 [facility] Comment on above: Performed By: #### C MP, GREG, LIPA #### [facility] [address] [address] [address] Pratibha Stevenson Chloride [Moles/Vol] 104 mmol/L Normal 98-107 [facility] Comment on above: Performed By: #### C MP, GREG, LIPA #### [facility] [address] [place] [address] Dr. Pratibha Stevenson CO2 [Moles/Vol] 29.3 mmol/L Normal 21.0-32.0 [facility] Comment on above: Performed By: #### C WENDY, GREG, LIPA #### [facility] [address] [place] [address] Dr. Pratibha Stevenson Creatinine [Mass/Vol] 1.21 mg/dL Normal 0.70-1.30 [facility] Comment on above: Performed By: #### C WENDY GREG, LIPA #### [facility] [address] [place] [address] Dr. Pratibha Stevenson EGFR-AF IRANIAN >60 Normal >=60 [facility] Comment on above: Performed By: #### C WENDY GREG, LIPA #### [facility] [address] [place] [address] Dr. Pratibha Stevenson EGFR-NON AF IRANIAN >60 Normal >=60 [facility] Comment on above: Performed By: #### C WENDY GREG, LIPA #### [facility] [address] [place] [address] Dr. Pratibha Stevenson Globulin (S) [Mass/Vol] 3.1 g/dL Normal [facility] Comment on above: Performed By: #### C MP, GREG, LIPA #### [facility] [address] [place] [address] Dr. Pratibha Stevensno Glucose [Mass/Vol] 88 mg/dL Normal 74-106 [facility] Comment on above: Performed By: #### C MP, GREG, LIPA #### [facility] [address] [place] [address] Dr. Pratibha Stevenson Potassium [Moles/Vol] 4.0 mmol/L Normal 3.5-5.1 [facility] Comment on above: Performed By: #### C GREG NGUYEN LIPA #### [facility] [address] [address] [address] Pratibha Stevenson Protein [Mass/Vol] 6.7 g/dL Normal 6.4-8.2 [facility] Comment on above: Performed By: #### C GREG NGUYEN LIPA #### [facility] [address] [address] [address] Pratibha Stevenson Sodium [Moles/Vol] 139 mmol/L Normal 136-145 [facility] Comment on above: Performed By: #### C GREG NGUYEN LIPA #### [facility] [address] [address] [address] Pratibha Stevenson Urea nitrogen [Mass/Vol] 8.0 mg/dL Normal 7.0-18.0 [facility] Comment on above: Performed By: #### C GREG NGUYEN LIPA #### [facility] [address] [place] [address] Dr. Pratibha Stevenson Urea nitrogen/Creatinine [Mass ratio] 6.6 mg/mg Normal [facility] Comment on above: Performed By: #### C GREG NGUYEN LIPA #### [facility] [address] [place] [address] Dr. Pratibha Stevenson XR KUB 1 VIEWon [...] MAUREEN GARDNER Date: 2022-05-11 06:36 Normal [facility] AMYLASEon 05-10-2022 Amylase [Catalytic activity/Vol] 41 U/L Normal 25-115 [facility] Comment on above: Performed By: #### L ACT #### [facility] [address] [address] [address] Pratibha Stevenson CBC AUTO DIFFon 05-10-2022 BASO # 0.0 103/ul Normal 0.0-0.1 [facility] Comment on above: Performed By: #### L ACT #### [facility] [address] [place] [address] Dr. Pratibha Stevenson Basophils/100 WBC (Bld) 0.7 % Normal 0.2-2.0 [facility] Comment on above: Performed By: #### L ACT #### [facility] [address] [place] [address] Dr. Pratibha Stevenson EO # 0.2 103/ul Normal 0.0-0.7 [facility] Comment on above: Performed By: #### L ACT #### [facility] [address] [place] [address] Dr. Pratibha Stevenson Eosinophils/100 WBC (Bld) 2.8 % Normal 0.9-7.0 [facility] Comment on above: Performed By: #### L ACT #### [facility] [address] [place] [address] Dr. Pratibha Stevenson Erythrocyte distribution width (RBC) [Ratio] 11.8 % Normal 11.0-15.0 [facility] Comment on above: Performed By: #### L ACT #### [facility] [address] [place] [address] Dr. Pratibha Stevenson Hematocrit (Bld) [Volume fraction] 38.8 % Critically low 42.0-54.0 [facility] Comment on above: Performed By: #### L ACT #### [facility] [address] [place] [address] Dr. Pratibha Stevenson Hemoglobin (Bld) [Mass/Vol] 13.3 g/dL Critically low 14.0-18.0 [facility] Comment on above: Performed By: #### L ACT #### [facility] [address] [place] [address] Dr. Pratibha Stevenson IG # 0.02 10e3/ul Normal 0.00-0.03 [facility] Comment on above: Performed By: #### L ACT #### [facility] [address] [place] [address] Dr. Pratibha Stevenson IG % 0.3 % Normal 0.0-0.5 [facility] Comment on above: Performed By: #### L ACT #### [facility] [address] [place] [address] Dr. Pratibha Stevenson LYMPH # 2.1 103/ul Normal 1.2-3.8 [facility] Comment on above: Performed By: #### L ACT #### [facility] [address] [place] [address] Dr. Pratibha Stevenson Lymphocytes/100 WBC (Bld) 35.3 % Normal 20.5-60.0 [facility] Comment on above: Performed By: #### L ACT #### [facility] [address] [place] [address] Dr. Pratibha Stevenson MANUAL DIFF REQ NO Normal [facility] Comment on above: Performed By: #### L ACT #### [facility] [address] [place] [address] Dr. Pratibha Stevenson MCH (RBC) [Entitic mass] 30.7 pg Normal 25.9-34.0 [facility] Comment on above: Performed By: #### L ACT #### [facility] [address] [place] [address] Dr. Pratibha Stevenson MCHC (RBC) [Mass/Vol] 34.3 g/dL Normal 29.9-35.2 [facility] Comment on above: Performed By: #### L ACT #### [facility] [address] [place] [address] Dr. Pratibha Stevenson MCV (RBC) [Entitic vol] 89.6 fL Normal 80.0-94.0 [facility] Comment on above: Performed By: #### L ACT #### [facility] [address] [address] [address] Pratibha Stevenson MONO # 0.4 103/ul Normal 0.3-0.8 [facility] Comment on above: Performed By: #### L ACT #### [facility] [address] [address] [address] Pratibha Stevenson Monocytes/100 WBC (Bld) 7.4 % Normal 1.7-12.0 [facility] Comment on above: Performed By: #### L ACT #### [facility] [address] [address] [address] Pratibha Stevenson NEUT # 3.1 103/ul Normal 1.4-6.5 [facility] Comment on above: Performed By: #### L ACT #### [facility] [address] [address] [address] Pratibha Stevenson Neutrophils/100 WBC (Bld) 53.5 % Normal 43.0-75.0 [facility] Comment on above: Performed By: #### L ACT #### [facility] [address] [address] [address] Pratibha Stevenson Platelet mean volume (Bld) [Entitic vol] 10.2 fL Normal 9.5-13.5 [facility] Comment on above: Performed By: #### L ACT #### [facility] [address] [address] [address] Pratibha Stevenson PLT 197 103/ul Normal 150-450 [facility] Comment on above: Performed By: #### L ACT #### [facility] [address] [id number] [address] Pratibha Stevenson RBC 4.33 106/ul Critically low 4.70-6.10 [facility] Comment on above: Performed By: #### L ACT #### [facility] [address] [address] [address] Pratibha Stevenson WBC 5.8 103/ul Normal 4.0-11.0 [facility] Comment on above: Performed By: #### L ACT #### [facility] [address] [place] [address] Dr. Pratibha Stevenson LIPASEon 05-10-2022 Lipase [Catalytic activity/Vol] 134.0 U/L Normal 73.0-393.0 [facility] Comment on above: Performed By: #### L ACT #### [facility] [address] [place] [address] Dr. Pratibha Stevenson PROF 14(COMP METB)on 023 Albumin [Mass/Vol] 3.1 g/dL Critically low 3.4-5.0 [facility] Comment on above: Performed By: #### L ACT #### [facility] [address] [place] [address] Dr. Pratibha Stevenson Albumin/Globulin [Mass ratio] 1.1 {ratio} Normal [facility] Comment on above: Performed By: #### L ACT #### [facility] [address] [place] [address] Dr. Pratibha Stevenson ALP [Catalytic activity/Vol] 68 U/L Normal 46-116 [facility] Comment on above: Performed By: #### L ACT #### [facility] [address] [place] [address] Dr. Pratibha Stevenson ALT [Catalytic activity/Vol] 25 U/L Normal 16-63 [facility] Comment on above: Performed By: #### L ACT #### [facility] [address] [place] [address] Dr. Pratibha Stevenson Anion gap [Moles/Vol] 11.1 mmol/L Normal [facility] Comment on above: Performed By: #### L ACT #### [facility] [address] [place] [address] Dr. Pratibha Stevenson AST [Catalytic activity/Vol] 16 U/L Normal 15-37 [facility] Comment on above: Performed By: #### L ACT #### [facility] [address] [place] [address] Dr. Pratibha Stevenson Bilirubin [Mass/Vol] 0.5 mg/dL Normal 0.2-1.0 [facility] Comment on above: Performed By: #### L ACT #### [facility] [address] [address] [address] Pratibha Stevenson Calcium [Mass/Vol] 8.6 mg/dL Normal 8.5-10.1 [facility] Comment on above: Performed By: #### L ACT #### [facility] [address] [address] [address] Pratibha Stevenson Chloride [Moles/Vol] 105 mmol/L Normal 98-107 [facility] Comment on above: Performed By: #### L ACT #### [facility] [address] [place] [address] Dr. Pratibha Stevenson CO2 [Moles/Vol] 26.6 mmol/L Normal 21.0-32.0 [facility] Comment on above: Performed By: #### L ACT #### [facility] [address] [place] [address] Dr. Pratibha Stevenson Creatinine [Mass/Vol] 1.12 mg/dL Normal 0.70-1.30 [facility] Comment on above: Performed By: #### L ACT #### [facility] [address] [place] [address] Dr. Pratibha Stevenson EGFR-AF IRANIAN >60 Normal >=60 [facility] Comment on above: Performed By: #### L ACT #### [facility] [address] [place] [address] Dr. Pratibha Stevenson EGFR-NON AF IRANIAN >60 Normal >=60 [facility] Comment on above: Performed By: #### L ACT #### [facility] [address] [place] [address] Dr. Pratibha Stevenson Globulin (S) [Mass/Vol] 2.7 g/dL Normal [facility] Comment on above: Performed By: #### L ACT #### [facility] [address] [address] [address] Pratibha Stevenson Glucose [Mass/Vol] 86 mg/dL Normal 74-106 [facility] Comment on above: Performed By: #### L ACT #### [facility] [address] [place], [place] [address] Dr. Pratibha Stevenson Potassium [Moles/Vol] 3.7 mmol/L Normal 3.5-5.1 [facility] Comment on above: Performed By: #### L ACT #### [facility] [address] [place], [place] [address] Dr. Pratibha Stevenson Protein [Mass/Vol] 5.8 g/dL Critically low 6.4-8.2 [facility] Comment on above: Performed By: #### L ACT #### [facility] [address] [place], [place] [address] Dr. Pratibha Stevenson Sodium [Moles/Vol] 139 mmol/L Normal 136-145 [facility] Comment on above: Performed By: #### L ACT #### [facility] [address] [address] [address] Pratibha Stevenson Urea nitrogen [Mass/Vol] 12.0 mg/dL Normal 7.0-18.0 [facility] Comment on above: Performed By: #### L ACT #### [facility] [address] [address] [address] Pratibha Stevenson Urea nitrogen/Creatinine [Mass ratio] 10.7 mg/mg Normal [facility] Comment on above: Performed By: #### L ACT #### [facility] [address] [place], [place] [address] Dr. Pratibha Stevenson US KIDNEYSon 05-10-2022 US [...] SAUMYA MARSH Date: 2022-05-10 08:37 Normal [facility] XR KUB 1 VIEWon 05-10-2022 XR KUB [...] MAUREEN GARDNER Date: 2022-05-10 06:55 Normal [facility] AMYLASEon 05-09-2022 Amylase [Catalytic activity/Vol] 44 U/L Normal 25-115 [facility] Comment on above: Performed By: #### C BC #### [facility] [address] [address] [address] Pratibha Stevenson CBC AUTO DIFFon 05-09-2022 BASO # 0.1 103/ul Normal 0.0-0.1 [facility] Comment on above: Performed By: #### S SCRN, GRASTCX #### [facility] [address] [address] [address] Pratibha Stevenson Basophils/100 WBC (Bld) 0.9 % Normal 0.2-2.0 [facility] Comment on above: Performed By: #### S SCRN, GRASTCX #### [facility] [address] [place] [address] [address] Pratibha Stevenson EO # 0.2 103/ul Normal 0.0-0.7 [facility] Comment on above: Performed By: #### S JOSE ARMANDO GRASTCX #### [facility] [address] [place] [address] Dr. Pratibha Stevenson Eosinophils/100 WBC (Bld) 2.6 % Normal 0.9-7.0 [facility] Comment on above: Performed By: #### S JOSE ARMANDO GRASTCX #### [facility] [address] [place] [address] Dr. Pratibha Stevenson Erythrocyte distribution width (RBC) [Ratio] 11.9 % Normal 11.0-15.0 [facility] Comment on above: Performed By: #### S JOSE ARMANDO GRASTCX #### [facility] [address] [place] [address] Dr. Pratibha Stevenson Hematocrit (Bld) [Volume fraction] 38.8 % Critically low 42.0-54.0 [facility] Comment on above: Performed By: #### S JOSE ARMANDO GRASTCX #### [facility] [address] [place] [address] Dr. Pratibha Stevenson Hemoglobin (Bld) [Mass/Vol] 13.9 g/dL Critically low 14.0-18.0 [facility] Comment on above: Performed By: #### Ruthann SUÁREZ GRASTCX #### [facility] [address] [place] [address] Dr. Pratibha Stevenson IG # 0.02 10e3/ul Normal 0.00-0.03 [facility] Comment on above: Performed By: #### S JOSE ARMANDO GRASTCX #### [facility] [address] [place] [address] Dr. Pratibha Stevenson IG % 0.4 % Normal 0.0-0.5 [facility] Comment on above: Performed By: #### S JOSE ARMANDO GRASTCX #### [facility] [address] [place] [address] Dr. Pratibha Stevenson LYMPH # 2.0 103/ul Normal 1.2-3.8 [facility] Comment on above: Performed By: #### S JOSE ARMANDO GRASTCX #### [facility] [address] [address] [address] Pratibha Stevenson Lymphocytes/100 WBC (Bld) 34.9 % Normal 20.5-60.0 [facility] Comment on above: Performed By: #### S SCRN, GRASTCX #### [facility] [address] [address] [address] Pratibha Stevenson MANUAL DIFF REQ NO Normal [facility] Comment on above: Performed By: #### S SCRN, GRASTCX #### [facility] [address] [place] [address] Dr. Pratibha Stevenson MCH (RBC) [Entitic mass] 31.0 pg Normal 25.9-34.0 [facility] Comment on above: Performed By: #### S SCRN, GRASTCX #### [facility] [address] [place] [address] Dr. Pratibha Stevenson MCHC (RBC) [Mass/Vol] 35.8 g/dL Critically high 29.9-35.2 [facility] Comment on above: Performed By: #### S SCRN, GRASTCX #### [facility] [address] [place] [address] Dr. Pratibha Stevenson MCV (RBC) [Entitic vol] 86.6 fL Normal 80.0-94.0 [facility] Comment on above: Performed By: #### S SCRN, GRASTCX #### [facility] [address] [place] [address] Dr. Pratibha Stevenson MONO # 0.4 103/ul Normal 0.3-0.8 [facility] Comment on above: Performed By: #### S SCRN, GRASTCX #### [facility] [address] [place] [address] Dr. Pratibha Stevenson Monocytes/100 WBC (Bld) 6.2 % Normal 1.7-12.0 [facility] Comment on above: Performed By: #### S SCRN, GRASTCX #### [facility] [address] [place] [address] Dr. Pratibha Stevenson NEUT # 3.1 103/ul Normal 1.4-6.5 [facility] Comment on above: Performed By: #### S JOSE ARMANDO GRASTCX #### [facility] [address] [place] [address] Dr. Pratibha Stevenson Neutrophils/100 WBC (Bld) 55.0 % Normal 43.0-75.0 [facility] Comment on above: Performed By: #### S JOSE ARMANDO GRASTCX #### [facility] [address] [place] [address] Dr. Pratibha Stevenson Platelet mean volume (Bld) [Entitic vol] 9.7 fL Normal 9.5-13.5 [facility] Comment on above: Performed By: #### S JOSE ARMANDO GRASTCX #### [facility] [address] [place] [address] Dr. Pratibha Stevenson PLT 201 103/ul Normal 150-450 [facility] Comment on above: Performed By: #### S JOSE ARMANDO GRASTCX #### [facility] [address] [place] [address] Dr. Pratibha Stevenson RBC 4.48 106/ul Critically low 4.70-6.10 [facility] Comment on above: Performed By: #### S JOSE ARMANDO GRASTCX #### [facility] [address] [place] [address] Dr. Pratibha Stevenson WBC 5.7 103/ul Normal 4.0-11.0 [facility] Comment on above: Performed By: #### S JOSE ARMANDO GRASTCX #### [facility] [address] [place] [address] Dr. Pratibha Stevenson CULTURE URINEon 05-09-2022 CULTURE URINE Culture Observations : NO GROWTH. Normal [facility] Comment on above: Performed By: #### C BC #### [facility] [address] [place] [address] Dr. Pratibha Stevenson LIPASEon 05-09-2022 Lipase [Catalytic activity/Vol] 98.0 U/L Normal 73.0-393.0 [facility] Comment on above: Performed By: #### C BC #### [facility] [address] [place] [address] Dr. Pratibha Stevenson PROF 14(COMP METB)on 023 Albumin [Mass/Vol] 3.2 g/dL Critically low 3.4-5.0 [facility] Comment on above: Performed By: #### C BC #### [facility] [address] [place] [address] Dr. Pratibha Stevenson Albumin/Globulin [Mass ratio] 1.3 {ratio} Normal [facility] Comment on above: Performed By: #### C BC #### [facility] [address] [place] [address] Dr. Pratibha Stevenson ALP [Catalytic activity/Vol] 74 U/L Normal 46-116 [facility] Comment on above: Performed By: #### C BC #### [facility] [address] [place] [address] Dr. Pratibha Stevenson ALT [Catalytic activity/Vol] 25 U/L Normal 16-63 [facility] Comment on above: Performed By: #### C BC #### [facility] [address] [place] [address] Dr. Pratibha Stevenson Anion gap [Moles/Vol] 10.7 mmol/L Normal [facility] Comment on above: Performed By: #### C BC #### [facility] [address] [place] [address] Dr. Pratibha Stevenson AST [Catalytic activity/Vol] 18 U/L Normal 15-37 [facility] Comment on above: Performed By: #### C BC #### [facility] [address] [place] [address] Dr. Pratibha Stevenson Bilirubin [Mass/Vol] 0.7 mg/dL Normal 0.2-1.0 [facility] Comment on above: Performed By: #### C BC #### [facility] [address] [place] [address] Dr. Pratibha Stevenson Calcium [Mass/Vol] 8.5 mg/dL Normal 8.5-10.1 [facility] Comment on above: Performed By: #### C BC #### [facility] [address] [place] [address] Dr. Pratibha Stevenson Chloride [Moles/Vol] 106 mmol/L Normal 98-107 [facility] Comment on above: Performed By: #### C BC #### [facility] [address] [address] [address] Pratibha Stevenson CO2 [Moles/Vol] 27.1 mmol/L Normal 21.0-32.0 [facility] Comment on above: Performed By: #### C BC #### [facility] [address] [address] [address] Pratibha Stevenson Creatinine [Mass/Vol] 1.16 mg/dL Normal 0.70-1.30 [facility] Comment on above: Performed By: #### C BC #### [facility] [address] [place] [address] Dr. Pratibha Stevenson EGFR-AF IRANIAN >60 Normal >=60 [facility] Comment on above: Performed By: #### C BC #### [facility] [address] [place] [address] Dr. Pratibha Stevenson EGFR-NON AF IRANIAN >60 Normal >=60 [facility] Comment on above: Performed By: #### C BC #### [facility] [address] [place] [address] Dr. Pratibha Stevenson Globulin (S) [Mass/Vol] 2.5 g/dL Normal [facility] Comment on above: Performed By: #### C BC #### [facility] [address] [place] [address] Dr. Pratibha Stevenson Glucose [Mass/Vol] 90 mg/dL Normal 74-106 [facility] Comment on above: Performed By: #### C BC #### [facility] [address] [place] [address] Dr. Pratibha Stevenson Potassium [Moles/Vol] 3.8 mmol/L Normal 3.5-5.1 [facility] Comment on above: Performed By: #### C BC #### [facility] [address] [place] [address] Dr. Pratibha Stevenson Protein [Mass/Vol] 5.7 g/dL Critically low 6.4-8.2 [facility] Comment on above: Performed By: #### C BC #### [facility] [address] [place], [place] [address] Dr. Pratibha Stevenson Sodium [Moles/Vol] 140 mmol/L Normal 136-145 [facility] Comment on above: Performed By: #### C BC #### [facility] [address], [place] [address] Dr. Pratibha Stevenson Urea nitrogen [Mass/Vol] 12.0 mg/dL Normal 7.0-18.0 [facility] Comment on above: Performed By: #### C BC #### [facility] [address] [place] [address] [address] Pratibha Stevenson Urea nitrogen/Creatinine [Mass ratio] 10.3 mg/mg Normal [facility] Comment on above: Performed By: #### C BC #### [facility] [address] [address] [address] Pratibha Stevenson XR KUB 1 VIEWon [...] EDIS HERNÁNDEZ Date: 2022-05-09 05:31 Normal [facility] CBC AUTO DIFFon 05-08-2022 BASO # 0.1 103/ul Normal 0.0-0.1 [facility] Comment on above: Performed By: #### C BC #### [facility] [address] [address] [address] Pratibha Stevenson Basophils/100 WBC (Bld) 0.4 % Normal 0.2-2.0 [facility] Comment on above: Performed By: #### C BC #### [facility] [address] [place] [address] Dr. Pratibha Stevenson EO # 0.1 103/ul Normal 0.0-0.7 [facility] Comment on above: Performed By: #### C BC #### [facility] [address] [place] [address] Dr. Pratibha Stevenson Eosinophils/100 WBC (Bld) 1.0 % Normal 0.9-7.0 [facility] Comment on above: Performed By: #### C BC #### [facility] [address] [place] [address] Dr. Pratibha Stevenson Erythrocyte distribution width (RBC) [Ratio] 11.9 % Normal 11.0-15.0 [facility] Comment on above: Performed By: #### C BC #### [facility] [address] [place] [address] Dr. Pratibha Stevenson Hematocrit (Bld) [Volume fraction] 47.4 % Normal 42.0-54.0 [facility] Comment on above: Performed By: #### C BC #### [facility] [address] [place] [address] Dr. Pratibha Stevenson Hemoglobin (Bld) [Mass/Vol] 17.3 g/dL Normal 14.0-18.0 [facility] Comment on above: Performed By: #### C BC #### [facility] [address] [place] [address] Dr. Pratibha Stevenson IG # 0.05 10e3/ul Critically high 0.00-0.03 [facility] Comment on above: Performed By: #### C BC #### [facility] [address] [place] [address] Dr. Pratibha Stevenson IG % 0.4 % Normal 0.0-0.5 [facility] Comment on above: Performed By: #### C BC #### [facility] [address] [place] [address] Dr. Pratibha Stevenson LYMPH # 2.4 103/ul Normal 1.2-3.8 [facility] Comment on above: Performed By: #### C BC #### [facility] [address] [place] [address] Dr. Pratibha Stevenson Lymphocytes/100 WBC (Bld) 18.6 % Critically low 20.5-60.0 [facility] Comment on above: Performed By: #### C BC #### [facility] [address] [place] [address] Dr. Pratibha Stevenson MANUAL DIFF REQ NO Normal [facility] Comment on above: Performed By: #### C BC #### [facility] [address] [address] [address] Pratibha Stevenson MCH (RBC) [Entitic mass] 31.3 pg Normal 25.9-34.0 [facility] Comment on above: Performed By: #### C BC #### [facility] [address] [place] [address] Dr. Pratibha Stevenson MCHC (RBC) [Mass/Vol] 36.5 g/dL Critically high 29.9-35.2 [facility] Comment on above: Performed By: #### C BC #### [facility] [address] [place] [address] Dr. Pratibha Stevenson MCV (RBC) [Entitic vol] 85.7 fL Normal 80.0-94.0 [facility] Comment on above: Performed By: #### C BC #### [facility] [address] [place] [address] Dr. Pratibha Stevenson MONO # 0.6 103/ul Normal 0.3-0.8 [facility] Comment on above: Performed By: #### C BC #### [facility] [address] [place] [address] Dr. Pratibha Stevenson Monocytes/100 WBC (Bld) 5.0 % Normal 1.7-12.0 [facility] Comment on above: Performed By: #### C BC #### [facility] [address] [place] [address] Dr. Pratibha Stevenson NEUT # 9.6 103/ul Critically high 1.4-6.5 [facility] Comment on above: Performed By: #### C BC #### [facility] [address] [place] [address] Dr. Pratibha Stevenson Neutrophils/100 WBC (Bld) 74.6 % Normal 43.0-75.0 [facility] Comment on above: Performed By: #### C BC #### [facility] [address] [place] [address] Dr. Pratibha Stevenson Platelet mean volume (Bld) [Entitic vol] 9.6 fL Normal 9.5-13.5 [facility] Comment on above: Performed By: #### C BC #### [facility] [address] [place] [address] Dr. Pratibha Stevenson PLT 286 103/ul Normal 150-450 [facility] Comment on above: Performed By: #### C BC #### [facility] [address] [place] [address] Dr. Pratibha Stevenson RBC 5.53 106/ul Normal 4.70-6.10 [facility] Comment on above: Performed By: #### C BC #### [facility] [address] [place] [address] Dr. Pratibha Stevenson WBC 12.8 103/ul Critically high 4.0-11.0 [facility] Comment on above: Performed By: #### C BC #### [facility] [address] [place] [address] ABD/PELV W CONon [...] CHAGO ROLLINS Date: 2022-05-08 18:37 Normal [facility]on SARS-CoV-2 (COVID-19) RNA MARIKA+probe Ql (Unsp spec) Not detected Normal NOT DETECTED [facility] Comment on above: Result Comment: When diagnostic [...] for this test is supported by the [place] of Health and Human Service's declaration that [...] used). Performed By: #### C BC #### [facility] [address] [place] [address] Dr. Pratibha RESENDIZ URINE PROFILEon 3 Bilirubin Ql (U) SMALL Abnormal NEGATIVE [facility] Comment on above: Performed By: #### C BC #### [facility] [address] [place] [address] Dr. Pratibha Stevenson Clarity (U) CLEAR Normal CLEAR [facility] Comment on above: Performed By: #### C BC #### [facility] [address] [place] [address] Dr. Pratibha Stevenson Color (U) DK. ORANGE Abnormal YELLOW [facility] Comment on above: Performed By: #### C BC #### [facility] [address] [place] [address] Dr. Pratibha RIOS A micrscopic examination will be performed if indicated. Normal [facility] Comment on above: Performed By: #### C BC #### [facility] [address] [place] [address] Dr. Pratibha Stevenson Glucose Ql (U) Negative Normal NEGATIVE [facility] Comment on above: Performed By: #### C BC #### [facility] [address] [place] [address] Dr. Pratibha Stevenson Hemoglobin Ql (U) LARGE Abnormal NEGATIVE [facility] Comment on above: Performed By: #### C BC #### [facility] [address] [place] [address] Dr. Pratibha Stevenson Ketones Ql (U) TRACE Abnormal NEGATIVE [facility] Comment on above: Performed By: #### C BC #### [facility] [address] [place] [address] Dr. Pratibha Stevenson LEUKOCYTES Negative Normal NEGATIVE [facility] Comment on above: Performed By: #### C BC #### [facility] [address] [place] [address] Dr. Pratibha Stevenson Nitrite Ql (U) Negative Normal NEGATIVE [facility] Comment on above: Performed By: #### C BC #### [facility] [address] [place] [address] Dr. Pratibha Stevenson pH (U) 6.5 [pH] Normal 5-9 [facility] Comment on above: Performed By: #### C BC #### [facility] [address] [place] [address] Dr. Pratibha Stevenson Protein (U) [Mass/Vol] 100 mg/dL Abnormal NEGATIVE/ TRACE [facility] Comment on above: Performed By: #### C BC #### [facility] [address] [place] [address] Dr. Pratibha Stevenson SPEC GRAVITY 1.010 Normal 1.005-<=1.025 [facility] Comment on above: Performed By: #### C BC #### [facility] [address] [place] [address] Dr. Pratibha Stevenson UR MICRO IND INDICATED Normal [facility] Comment on above: Performed By: #### C BC #### [facility] [address] [place] [address] Dr. Pratibha Stevenson Urobilinogen Qn (U) 1.0 {Butch'U}/dL Normal 0.2 - 1. 0 [facility] Comment on above: Performed By: #### C BC #### [facility] [address] [place] [address] Dr. Pratibha Stevenson LIPASEon 05-08-2022 Lipase [Catalytic activity/Vol] 417.0 U/L Critically high 73.0-393.0 [facility] Comment on above: Performed By: #### L ACT #### [facility] [address] [place] [address] Dr. Pratibha Stevenson PROF 14(COMP METB)on 023 Albumin [Mass/Vol] 4.5 g/dL Normal 3.4-5.0 [facility] Comment on above: Performed By: #### L ACT #### [facility] [address] [place] [address] Dr. Pratibha Stevenson Albumin/Globulin [Mass ratio] 1.3 {ratio} Normal [facility] Comment on above: Performed By: #### L ACT #### [facility] [address] [place] [address] [address] Pratibha Stevenson ALP [Catalytic activity/Vol] 97 U/L Normal 46-116 [facility] Comment on above: Performed By: #### L ACT #### [facility] [address] [address] [address] Pratibha Stevenson ALT [Catalytic activity/Vol] 35 U/L Normal 16-63 [facility] Comment on above: Performed By: #### L ACT #### [facility] [address] [place] [address] Dr. Pratibha Stevenson Anion gap [Moles/Vol] 13.7 mmol/L Normal [facility] Comment on above: Performed By: #### L ACT #### [facility] [address] [place] [address] Dr. Pratibha Stevenson AST [Catalytic activity/Vol] 22 U/L Normal 15-37 [facility] Comment on above: Performed By: #### L ACT #### [facility] [address] [place] [address] Dr. Pratibha Stevenson Bilirubin [Mass/Vol] 0.7 mg/dL Normal 0.2-1.0 [facility] Comment on above: Performed By: #### L ACT #### [facility] [address] [place] [address] Dr. Pratibha Stevenson Calcium [Mass/Vol] 9.6 mg/dL Normal 8.5-10.1 [facility] Comment on above: Performed By: #### L ACT #### [facility] [address] [place] [address] Dr. Pratibha Stevenson Chloride [Moles/Vol] 99 mmol/L Normal 98-107 [facility] Comment on above: Performed By: #### L ACT #### [facility] [address] [place] [address] Dr. Pratibha Stevenson CO2 [Moles/Vol] 29.0 mmol/L Normal 21.0-32.0 [facility] Comment on above: Performed By: #### L ACT #### [facility] [address] [place] [address] Dr. Pratibha Stevenson Creatinine [Mass/Vol] 1.43 mg/dL Critically high 0.70-1.30 [facility] Comment on above: Performed By: #### L ACT #### [facility] [address] [address] [address] Pratibha Stevenson EGFR-AF IRANIAN >60 Normal >=60 [facility] Comment on above: Performed By: #### L ACT #### [facility] [address] [address] [address] Pratibha Stevenson EGFR-NON AF IRANIAN 58 mL/min/1.73m2 Critically low >=60 [facility] Comment on above: Performed By: #### L ACT #### [facility] [address] [place] [address] Dr. Pratibha Stevenson Globulin (S) [Mass/Vol] 3.5 g/dL Normal [facility] Comment on above: Performed By: #### L ACT #### [facility] [address] [address] [address] Pratibha Stevenson Glucose [Mass/Vol] 127 mg/dL Critically high 74-106 [facility] Comment on above: Performed By: #### L ACT #### [facility] [address] [place] [address] Dr. Pratibha Stevenson Potassium [Moles/Vol] 3.7 mmol/L Normal 3.5-5.1 [facility] Comment on above: Performed By: #### L ACT #### [facility] [address] [place] [address] Dr. Pratibha Stevenson Protein [Mass/Vol] 8.0 g/dL Normal 6.4-8.2 [facility] Comment on above: Performed By: #### L ACT #### [facility] [address] [place] [address] Dr. Pratibha Stevenson Sodium [Moles/Vol] 138 mmol/L Normal 136-145 [facility] Comment on above: Performed By: #### L ACT #### [facility] [address] [address] [address] Pratibha Stevenson Urea nitrogen [Mass/Vol] 13.0 mg/dL Normal 7.0-18.0 [facility] Comment on above: Performed By: #### L ACT #### [facility] [address] [place] [address] Dr. Pratibha Stevenson Urea nitrogen/Creatinine [Mass ratio] 9.1 mg/mg Normal [facility] Comment on above: Performed By: #### L ACT #### [facility] [address] [place] [address] Dr. Pratibha Stevenson URINE MICROSCOPIC ONLYon BACTERIA NONE SEEN Normal NONE SEEN [facility] Comment on above: Performed By: #### C BC #### [facility] [address] [place] [address] Dr. Pratibha Stevenson Bacteria identified Cx Nom (U) NOT INDICATED Normal [facility] Comment on above: Performed By: #### C BC #### [facility] [address] [place] [address] Dr. Pratibha Stevenson CAST NONE SEEN Normal NONE SEEN [facility] Comment on above: Performed By: #### C BC #### [facility] [address] [place] [address] Dr. Pratibha Stevenson Crystals LM Nom (Urine sed) NONE SEEN Normal NONE SEEN [facility] Comment on above: Performed By: #### C BC #### [facility] [address] [place] [address] Dr. Pratibha Stevenson Epithelial cells LM Ql (Urine sed) FEW Abnormal NONE SEEN /RARE [facility] Comment on above: Performed By: #### C BC #### [facility] [address] [place] [address] Dr. Pratibha Stevenson MUCOUS TRACE Abnormal NONE SEEN [facility] Comment on above: Performed By: #### C BC #### [facility] [address] [place] [address] Dr. Pratibha Stevenson RBC (U) [#/Vol] /uL Abnormal 0-2 [facility] Comment on above: Performed By: #### C BC #### [facility] [address] [place] [address] Dr. Pratibha Stevenson WBC 2-5 Abnormal NONE SEEN [facility] Comment on above: Performed By: #### C BC #### [facility] [address] [place] [address] Dr. Pratibha Stevenson XR CHEST 1 Von [...] RAMO ZEPEDA Date: 2022-05-08 17:40 Normal [facility] CBC AUTO DIFFon 03-23-2022 BASO # 0.1 103/ul Normal 0.0-0.1 [facility] Comment on above: Performed By: #### C BC #### [facility] [address] [place] [address] Dr. Pratibha Stevenson Basophils/100 WBC (Bld) 0.9 % Normal 0.2-2.0 [facility] Comment on above: Performed By: #### C BC #### [facility] [address] [place] [address] Dr. Pratibha Stevenson EO # 0.1 103/ul Normal 0.0-0.7 [facility] Comment on above: Performed By: #### C BC #### [facility] [address] [place] [address] Dr. Pratibha Stevenson Eosinophils/100 WBC (Bld) 1.7 % Normal 0.9-7.0 [facility] Comment on above: Performed By: #### C BC #### [facility] [address] [place] [address] Dr. Pratibha Stevenson Erythrocyte distribution width (RBC) [Ratio] 12.3 % Normal 11.0-15.0 [facility] Comment on above: Performed By: #### C BC #### [facility] [address] [place] [address] Dr. Pratibha Stevenson Hematocrit (Bld) [Volume fraction] 47.2 % Normal 42.0-54.0 [facility] Comment on above: Performed By: #### C BC #### [facility] [address] [place] [address] Dr. Pratibha Stevenson Hemoglobin (Bld) [Mass/Vol] 16.0 g/dL Normal 14.0-18.0 [facility] Comment on above: Performed By: #### C BC #### [facility] [address] [place] [address] Dr. Pratibha Stevenson IG # 0.03 10e3/ul Normal 0.00-0.03 [facility] Comment on above: Performed By: #### C BC #### [facility] [address] [place] [address] Dr. Pratibha Stevenson IG % 0.4 % Normal 0.0-0.5 [facility] Comment on above: Performed By: #### C BC #### [facility] [address] [place] [address] Dr. Pratibha Stevenson LYMPH # 2.5 103/ul Normal 1.2-3.8 [facility] Comment on above: Performed By: #### C BC #### [facility] [address] [place] [address] Dr. Pratibha Stevenson Lymphocytes/100 WBC (Bld) 30.4 % Normal 20.5-60.0 [facility] Comment on above: Performed By: #### C BC #### [facility] [address] [place] [address] Dr. Pratibha Stevenson MANUAL DIFF REQ NO Normal [facility] Comment on above: Performed By: #### C BC #### [facility] [address] [place] [address] Dr. Pratibha Stevenson MCH (RBC) [Entitic mass] 30.9 pg Normal 25.9-34.0 [facility] Comment on above: Performed By: #### C BC #### [facility] [address] [place] [address] Dr. Pratibha Stevenson MCHC (RBC) [Mass/Vol] 33.9 g/dL Normal 29.9-35.2 [facility] Comment on above: Performed By: #### C BC #### [facility] [address] [place] [address] Dr. Pratibha Stevenson MCV (RBC) [Entitic vol] 91.3 fL Normal 80.0-94.0 [facility] Comment on above: Performed By: #### C BC #### [facility] [address] [place] [address] Dr. Pratibha Stevenson MONO # 0.6 103/ul Normal 0.3-0.8 [facility] Comment on above: Performed By: #### C BC #### [facility] [address] [place] [address] Dr. Pratibha Stevenson Monocytes/100 WBC (Bld) 7.6 % Normal 1.7-12.0 [facility] Comment on above: Performed By: #### C BC #### [facility] [address] [place] [address] Dr. Pratibha Stevenson NEUT # 4.8 103/ul Normal 1.4-6.5 [facility] Comment on above: Performed By: #### C BC #### [facility] [address] [place] [address] Dr. Pratibha Stevenson Neutrophils/100 WBC (Bld) 59.0 % Normal 43.0-75.0 [facility] Comment on above: Performed By: #### C BC #### [facility] [address] [place] [address] Dr. Pratibha Stevenson Platelet mean volume (Bld) [Entitic vol] 10.2 fL Normal 9.5-13.5 [facility] Comment on above: Performed By: #### C BC #### [facility] [address] [place] [address] Dr. Pratibha Stevenson PLT 258 103/ul Normal 150-450 [facility] Comment on above: Performed By: #### C BC #### [facility] [address] [place] [address] Dr. Pratibha Stevenson RBC 5.17 106/ul Normal 4.70-6.10 [facility] Comment on above: Performed By: #### C BC #### [facility] [address] [place] [address] Dr. Pratibha Stevenson WBC 8.1 103/ul Normal 4.0-11.0 [facility] Comment on above: Performed By: #### C BC #### [facility] [address], [place] [address] ABD/PELVIS WO CONon [...] SHARON GODINEZ Date: 2022-03-22 23:40 Normal [facility] PROF 14(COMP METB)on 022 Albumin [Mass/Vol] 4.2 g/dL Normal 3.4-5.0 [facility] Comment on above: Performed By: #### L ACT #### [facility] [address] [place], [place] [address] Dr. Pratibha Stevenson Albumin/Globulin [Mass ratio] 1.2 {ratio} Normal [facility] Comment on above: Performed By: #### L ACT #### [facility] [address] [place], [place] [address] Dr. Pratibha Stevenson ALP [Catalytic activity/Vol] 84 U/L Normal 46-116 [facility] Comment on above: Performed By: #### L ACT #### [facility] [address] [address] [address] Pratibha Stevenson ALT [Catalytic activity/Vol] 32 U/L Normal 16-63 [facility] Comment on above: Performed By: #### L ACT #### [facility] [address] [address] [address] Pratibha Stevenson Anion gap [Moles/Vol] 10.6 mmol/L Normal [facility] Comment on above: Performed By: #### L ACT #### [facility] [address] [address] [address] Pratibha Stevenson AST [Catalytic activity/Vol] 18 U/L Normal 15-37 [facility] Comment on above: Performed By: #### L ACT #### [facility] [address] [place] [address] Dr. Pratibha Stevenson Bilirubin [Mass/Vol] 0.4 mg/dL Normal 0.2-1.0 [facility] Comment on above: Performed By: #### L ACT #### [facility] [address] [address] [address] Pratibha Stevenson Calcium [Mass/Vol] 9.8 mg/dL Normal 8.5-10.1 [facility] Comment on above: Performed By: #### L ACT #### [facility] [address] [address] [address] Pratibha Stevenson Chloride [Moles/Vol] 103 mmol/L Normal 98-107 [facility] Comment on above: Performed By: #### L ACT #### [facility] [address] [address] [address] Pratibha Stevenson CO2 [Moles/Vol] 28.2 mmol/L Normal 21.0-32.0 [facility] Comment on above: Performed By: #### L ACT #### [facility] [address] [address] [address] Pratibha Stevenson Creatinine [Mass/Vol] 1.24 mg/dL Normal 0.70-1.30 [facility] Comment on above: Performed By: #### L ACT #### [facility] [address] [address] [address] Pratibha Stevenson EGFR-AF IRANIAN >60 Normal >=60 [facility] Comment on above: Performed By: #### L ACT #### [facility] [address] [address] [address] Pratibha Stevenson EGFR-NON AF IRANIAN >60 Normal >=60 [facility] Comment on above: Performed By: #### L ACT #### [facility] [address] [address] [address] Pratibha Stevenson Globulin (S) [Mass/Vol] 3.6 g/dL Normal [facility] Comment on above: Performed By: #### L ACT #### [facility] [address] [address] [address] Pratibha Stevenson Glucose [Mass/Vol] 102 mg/dL Normal 74-106 [facility] Comment on above: Performed By: #### L ACT #### [facility] [address] [address] [address] Pratibha Stevenson Potassium [Moles/Vol] 3.8 mmol/L Normal 3.5-5.1 [facility] Comment on above: Performed By: #### L ACT #### [facility] [address] [address] [address] Pratibha Stevenson Protein [Mass/Vol] 7.8 g/dL Normal 6.4-8.2 [facility] Comment on above: Performed By: #### L ACT #### [facility] [address] [address] [address] Pratibha Stevenson Sodium [Moles/Vol] 138 mmol/L Normal 136-145 [facility] Comment on above: Performed By: #### L ACT #### [facility] [address] [address] [address] Pratibha Stevenson Urea nitrogen [Mass/Vol] 18.0 mg/dL Normal 7.0-18.0 [facility] Comment on above: Performed By: #### L ACT #### [facility] [address] [address] [address] Pratibha Stevenson Urea nitrogen/Creatinine [Mass ratio] 14.5 mg/mg Normal [facility] Comment on above: Performed By: #### L ACT #### [facility] [address] [address] [address] Pratibha Stevenson Vital Signs Date Time Vital Sign Value Performing Clinician Janice daniels 07-21-2022 08:57-0400 Blood Pressure Location Shirley Lue [facility] 07-21-2022 08:57-0400 Diastolic blood pressure 69 mm[Hg] Shirley Lue [facility] 07-21-2022 08:57-0400 Heart rate 74 /min Shirley L[facility] 07-21-2022 08:57-0400 Systolic blood pressure 133 mm[Hg] Shirley Lue [facility] 07-13-2022 09:17-0400 Blood Pressure Location Shirley Lue [facility] 07-13-2022 09:17-0400 Diastolic blood pressure 68 mm[Hg] Shirley Lue [facility] 07-13-2022 09:17-0400 Heart rate 73 /min Shirley Lue [facility] 07-13-2022 09:17-0400 Systolic blood pressure 124 mm[Hg] Shirley Lue [facility] Encounters Encounter Date Encounter Type Care Provider Facility Start: 06-14-2023 End: 06-15-2023 [facility] Start: 06-14-2023 End: 06-14-2023 Subsequent hospital visit by physician Manjit Waller [facility] Physical Therapy Comment on above: Arrived Start: 06-12-2023 End: 06-13-2023 ambulatory [facility] Start: 06-12-2023 End: 06-12-2023 Subsequent hospital visit by physician Manjit Waller [facility] Physical Therapy Comment on above: Arrived Start: 06-09-2023 End: 06-10-2023 ambulatory [facility] Start: 06-09-2023 End: 06-09-2023 Subsequent hospital visit by physician Flash Goodwin PTA [facility] Physical Therapy Comment on above: Arrived Start: 06-05-2023 End: 06-06-2023 ambulatory [facility] Start: 05-31-2023 End: 06-01-2023 [facility] Start: 05-29-2023 End: 05-30-2023 [facility] Start: 05-26-2023 End: 05-27-2023 [facility] Start: 05-22-2023 End: 05-23-2023 ambulatory [facility] Start: 05-17-2023 End: 05-18-2023 ambulatory [facility] Start: 03-13-2023 End: 03-13-2023 [facility] Start: 02-16-2023 End: 02-17-2023 ambulatory [facility] Start: 02-16-2023 End: 02-17-2023 Encounter for other preprocedural examination [facility] Start: 08-11-2022 End: 08-11-[address] LATRICIA GUZMAN . Facility: Start: 07-22-2022 End: 07-23-[address] LATRICIA GUZMAN . Facility: Start: 07-21-2022 End: 07-22-2022 ambulatory Shirley Murrell Facility:[facility] Start: 07-21-2022 End: 07-21-2022 Patient encounter procedure Shirley Murrell [facility] Start: 07-20-2022 End: 07-20-[address] LATRICIA GUZMAN . Facility: Start: 07-13-2022 End: 07-14-2022 ambulatory Shirley Murrell Facility:[facility] Start: 07-13-2022 End: 07-13-2022 Patient encounter procedure Shirley ZionJoselin Murrell [facility] Start: 07-06-2022 End: 07-07-2022 ambulatory SHIRLEY MURRELL . Facility: Start: 05-23-2022 End: 05-24-2022 ambulatory Shirley Murrell Facility:[facility] Start: 05-23-2022 End: 05-23-2022 Patient encounter procedure Shirley Murrell [facility] Start: 05-11-2022 End: 05-12-2022 ambulatory Shirley Murrell Facility:CD:[id number] Start: 05-08-2022 End: 05-12-[address] LATRICIA GUZMAN . Facility: Start: 03-23-2022 End: 03-23-[address] LATRICIA GUZMAN . Facility: Procedures Date Procedure Procedure Detail Performing Clinician Start: 05-23-2022 Cystoscopic removal of ureteric stent Shirley Murrell Start: 05-08-2022 Cystoscopic laser lithotripsy of ureteric calculus Shirley Murrell Plan of Treatment Date Care Activity Detail Author Start: 06-26-2023 End: 06-26-2023 Patient encounter procedure 06/26/2023 2:30 PM EST Appointment [facility] Physical Therapy [address] [place], [place] [id number] Manjit Waller [facility] Physical Therapy Start: 06-23-2023 End: 06-23-2023 Patient encounter procedure 06/23/2023 1:45 PM EST Appointment [facility] Physical Therapy [address] [place] [id number] Flash Goodwin PTA [facility] Physical Therapy Start: 06-19-2023 End: 06-19-2023 Patient encounter procedure 06/19/2023 3:15 PM EST Appointment [facility] Physical Therapy [address] [place] [id number] Manjit Waller [facility] Physical Therapy Start: 06-14-2023 End: 06-14-2023 Patient encounter procedure 06/14/2023 3:30 PM EST Appointment [facility] Physical Therapy [address] [place] [id number] Manjit Waller [facility] Physical Therapy Start: 06-12-2023 End: 06-12-2023 Patient encounter procedure 06/12/2023 3:15 PM EST Appointment [facility] Physical Therapy [address] [place] [phone] Manjit Waller [facility] Physical Therapy Start: 11-29-2022 Influenza vaccination Flu vaccine (# 1) [facility] Start: 2010 Hepatitis C screening Hepatitis C sc reen [facility] Start: 08-18-2007 HIV screening HIV screen [facility] Start: 2004 Depression Screen Depression Screen [facility] Start: 08-18-2003 DTaP/Tdap/Td vaccine (6 - Tdap) DTaP/Tdap/Td vaccine (6 - Tdap) [facility] Start: 1993 Varicella vaccine (1 of 2 - 2-dose childhood series) Varicella vaccine (1 of 2 - 2-dose childhood series) [facility] Start: 02-16-1993 COVID-19 Vaccine (#1) COVID-19 Vacci ne (#1) [facility] Immunizations Immunization Date Immunization Notes Care Provider Khushbu thao 12-26-1997 DTaP, unspecified formulation Shirley Murrell [facility] 12-26-1997 measles, mumps and rubella virus vaccine Shirley Murrell [facility] 01-10-1994 DTaP, unspecified formulation Shirley Lue [facility] 01-10-1994 hepatitis B vaccine, pediatric or pediatric/adolescent dosage Shirley Lue [facility] 01-10-1994 Hib, unspecified formulation Shirley Lue [facility] 01-10-1994 measles, mumps and rubella virus vaccine Shirley Lue [facility] 03-12-1993 Hib, unspecified formulation Shirley Lue [facility] 01-01-1993 hepatitis B vaccine, pediatric or pediatric/adolescent dosage Shirley Lue [facility] 01-01-1993 Hib, unspecified formulation Shirley Lue [facility] 1992 hepatitis B vaccine, pediatric or pediatric/adolescent dosage Shirley Lue [facility] 1990 Hib, unspecified formulation Shirley Lue [facility] Payers Date Payer Category Payer Unknown [id number] 2.16.8 [id number] 1992 Unknown [id number] 2.16.8 [id number] 1992 Unknown [id number] 2.16.8 40.1.713402.3.579.2.727 1992 Unknown [id number] 2.16.8 40.1.713539.3.579.2.727 1992 Unknown [id number] 2.16.84 0.1.373592.3.579.2.593 1992 Unknown [id number] 2.16.84 0.1.588151.3.579.2.593 1992 Unknown [id number] 2.16.84 0.1.845486.3.579.2.593 1992 Unknown [id number] 2.16.84 0.1.369842.3.579.2.593 1992 Unknown [id number] 2.16.84 0.1.369370.3.579.2.593 1992 Unknown [id number] 2.16.84 0.1.467796.3.579.2.593 1992 Unknown [id number] 2.16.8 40.1.462800.3.579.2.173 1992 Unknown [id number] 2.16.8 40.1.700318.3.579.2.173 1992 Unknown [id number] 2.16.8 40.1.773162.3.579.2.173 1992 Unknown [id number] 2.16.8 40.1.454977.3.579.2.173 1992 Unknown [id number] 2.16.8 40.1.448325.3.579.2.173 1992 Unknown [id number] 2.16.8 40.1.990173.3.579.2.173 1992 Unknown [id number] 2.16.8 40.1.701078.3.579.2.173 1992 Unknown [id number] 2.16.8 40.1.252417.3.579.2.173 1992 Unknown [id number] 2.16.8 40.1.252738.3.579.2.173 1992 Unknown [id number] 2.16.8 40.1.809061.3.579.2.173 1992 Unknown [id number] 2.16.8 40.1.615010.3.579.2.173 1957 Medicaid [id number] 1957 Self-pay [id number] Self-pay Social History Date Type Detail Facility Tobacco smoking status No Smoking Status Entered [facility] Sex Assigned At Male [facility] Start: 07-13-2022 End: 07-21-2022 Tobacco smoking status Light tobacco smoker (finding) [facility] Tobacco smoking status Never [facility] Tobacco smoking status NHIS Tobacco smoking consumption unknown [facility] Start: 1990 Sex Assigned At Not on file [facility] Functional Status Date Assessment Result Facility 07-21-2022 Functional Status N/A [facility] 07-13-2022 Functional Status N/A [facility] 05-12-2022 Functional Status N/A 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 Treatment Diagnosis: R knee pain Onset Date: 03/13/23 PT Insurance Information: [employer] Total # of Visits Approved: 12 Per Physician Order Total # of Visits to Date: 8 No Show: 0 Canceled Appointment: 0 06/30/23 Plan of Care/Recert Due Pre-Treatment Pain: 05/10 Subjective: Pt states his knee feels a little stiff and pain remains about a 05/10 Exercises: Exercise 2: Scifit x10 min Lvl 4.5--hills Exercise 6: Sit to Stands 2x10 8# Exercise 8: FSU/ LSU/SD 8 15x2 Exercise 9: SLS 3x30 on airex Exercise 11: Total gym L 7 SL single leg squats 2x10 Exercise 12: leg press SL 5pl 10x2 Exercise 13: lunges at island 15x ea leg Manual: Joint Mobilization: PROM R knee within patient tolerance Assessment Assessment: Pt is progressing well. Added leg press for additional strtengthening. ROM is doing well, will continue to focus on strengthening Activity Tolerance Activity Tolerance: Patient tolerated treatment well Patient Education Patient Education: HEP Pt verbalized/demonstrated good understanding: [x] Yes [] No, pt required further clarification. Post Treatment Pain: 05/10 Plan Plan Frequency: 2 Plan weeks: 6 Goals (Total # of Visits to Date: 8) Short Term Goals Time Frame for Short Term Goals: 3 weeks Short Term Goal 1: Patient to initiate HEP for improved R knee ROM and strength.-met Short Term Goal 2: Patient to have improved R knee flexion: 100* with no increase in pain for improved mobility. -met (05/31/23 R knee flexion measured 130*) Short Term Goal 3: Initiate manual techniques/modalities prn to decrease pain and improve R knee mobility. -met Residential Goals Time Frame for Residential Goals : 6 weeks Medical Pathology Teacher Goal 1: Patient to be independent and compliant with HEP. -met Medical Pathology Teacher Goal 2: Patient to have improved R knee AROM 0-120* with no increase in pain for improved mobility. -met (05/31/23 R knee AROM 0-130*) Residential Goal 3: Patient to have improved R LE strength >/=4/5 grossly all major joints and planes for improved knee stability with gait. Residential Goal 4: Pt to report ability to walk community distances with no AD and no gait deviations or increase in pain to return to PLOF. -progressing Minutes Tracking: Time In: 1530 Time Out: 1614 Minutes: 44 Timed Code Treatment Minutes: 43 Minutes Manjit Thorpe Date: 06/14/2023 documented in this encounter [facility] History of Present illness Narrative 06-12-2023 Manjit Waller - 06/12/2023 3:15 PM EST Note Date & Type Note Facility 06-12-2023 History of Present illness Narrative [facility] Daily Note Patient: Ethan Donald : 1990 CSN #: [id number] Referring Physician: Jon Reynoso MD Date: 06/12/2023 Diagnosis: R patellar dislocation, S83.004A; R darell-schlatter's disease, M92.521; R knee chondromalacia, 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 Exercises: Exercise 2: Scifit x10 min Lvl 4.5--hills Exercise 3: Step stretches 3x30 ea, SB stretch 3x30 Exercise 5: Side stepping at counter x2 laps gym --BTB monster walks - 2 big laps Exercise 6: Sit to Stands 2x10, no UE support, 1 x 10 holding 8# weight Exercise 8: FSU/ LSU/SD 8 15x2 Exercise 11: Total gym L 7 SL single leg squats 2x10 Assessment Assessment: Pt reports with pain. Pt is feeling stronger since starting therapy.Added step lunges to program with good tolerance. Will continue to progress as tolerated Activity Tolerance Activity Tolerance: Patient tolerated treatment well Patient Education Patient Education: HEP Pt verbalized/demonstrated good understanding: [x] Yes [] No, pt required further clarification. Post Treatment Pain: 1/10 Plan Plan Frequency: 2 Plan weeks: 6 Goals (Total # of Visits to Date: 8) Short Term Goals Time Frame for Short Term Goals: 3 weeks Short Term Goal 1: Patient to initiate HEP for improved R knee ROM and strength.-met Short Term Goal 2: Patient to have improved R knee flexion: 100* with no increase in pain for improved mobility. -met (05/31/23 R knee flexion measured 130*) Short Term Goal 3: Initiate manual techniques/modalities prn to decrease pain and improve R knee mobility. -met Residential Goals Time Frame for Medical Pathology Teacher Goals : 6 weeks Medical Pathology Teacher Goal 1: Patient to be independent and compliant with HEP. -met Residential Goal 2: Patient to have improved R knee AROM 0-120* with no increase in pain for improved mobility. -met (05/31/23 R knee AROM 0-130*) Residential Goal 3: Patient to have improved R LE strength >/=4/5 grossly all major joints and planes for improved knee stability with gait. Medical Pathology Teacher Goal 4: Pt to report ability to walk community distances with no AD and no gait deviations or increase in pain to return to PLOF. -progressing Minutes Tracking: Time In: 1515 Time Out: 1558 Minutes: 43 Timed Code Treatment Minutes: 41 Minutes Manjit Thorpe Date: 06/12/2023 documented in this encounter [facility] Discharge instructions 07-21-2022 Note Date & [...] include: ?Spinach. ?Rhubarb. ?Beets. ?Potato chips and pakistani fries. ?Nuts. If you regularly take a diuretic medicine, make sure to eat at least 1 2 fruits or vegetables high in potassium each day. These include: ?Avocado. ?Banana. ?[place], prune, carrot, or tomato juice. ?Baked potato. [...] Casseroles. Pizza. Lasagna. Frozen meals. Potato chips. Japanese fries. Summary You can reduce your risk [...] 08/12/2011 Document Revised: 08/07/2019 Document Reviewed: 03/28/2017 [employer] Patient Education 2019 [employer]. Follow Up Care 07/20/2022 16:11:07 With:Handy WILEY, DANA Llamas, URO Address: When: Unknown [facility] Discharge instructions 07-13-2022 Note Date [...] include: ?Spinach. ?Rhubarb. ?Beets. ?Potato chips and pakistani fries. ?Nuts. If you regularly take a diuretic medicine, make sure to eat at least 1 2 fruits or vegetables high in potassium each day. These include: ?Avocado. ?Banana. ?[place], prune, carrot, or tomato juice. ?Baked potato. [...] Casseroles. Pizza. Lasagna. Frozen meals. Potato chips. Japanese fries. Summary You can reduce your risk [...] 08/12/2011 Document Revised: 08/07/2019 Document Reviewed: 03/28/2017 [employer] Patient Education 2020 [employer]. Follow Up Care 05/23/2022 10:22:28 With:Handy WILEY, Shirley Menchaca, URL, URO Address: When: Unknown [facility] History and physical note 05-26-2022 Note Date & Type Note Facility 05-26-2022 Note [id number] #[email or web address]:[email or web address] [facility] Evaluation + Plan note Note Date & Type Note Facility Evaluation + Plan note Future Appointments Appointment Date:07/13/2022 09:00:00 AM Scheduled Provider:Shirley Murrell MD Location:[facility] Appointment Type:URO Office Visit [facility] Hospital course Narrative Note Date & Type Note Facility Hospital course Narrative No data available for this section [facility] Hospital Discharge instructions Note Date & Type Note Facility Hospital Discharge instructions No data available for this section [facility] Progress note Note Date & Type Note Facility Progress note No data available for this section [facility] Summary Purpose Family History No Family History Records FoundNo Family History Records FoundNo Family History Records Found Advance Directives No Advanced Directives Records FoundNo Advanced Directives Records FoundNo Advanced Directives Records Found Additional Source Comments Patient Care team informatio n (unrecognized section and content) Tube Worker Relationship Specialty Start Date End Date Latricia Guzman MD [facility] [place] [address] PCP - General Family Medicine 02/16/23 Tube Worker Relationship Specialty Start Date End Date Latricia Guzman MD [address] [place] [address] PCP - General Family Medicine 02/16/23 (unrecognized sect ion and content) No Status Records FoundNo Status Records FoundNo Status Records Found INFORMATION SOURCE (unrecogn ized section and content) DATE CREATED AUTHOR 07/31/2022 [facility] DATE CREATED AUTHOR AUTHOR'S ORGANIZ ATION 09/13/2022 [facility] DATE CREATED AUTHOR AUTHOR'S CHEVY LINARES 06/16/2023 Sherlyn Martínez [facility] FOR RECORDS PERTAINING TO PATIENTS WHO ARE [...] BE BASED ON THE PRIMARY CLINICAL RECORDS. [facility]. provides no warranty or guarantee of the accuracy or completeness of information in this document.
== END 2024-01-31 14:49 | disposition home or self-care (01) ==
LOC: RAD 14:51
PROVIDERS: PCP Family Medicine; Visit Provider Family Medicine
DX: R06.83 Snoring (principal)
CPT/HCPCS: 71046

== ENCOUNTER 2024-02-11 22:42 | Emergency (ER) | payer SELFPAY ==
[2024-02-11 22:46] VITALS: BP 140/87; PULSE 95; TEMP 36.8; O2SAT 97; BMI 31.0
--- OUTSIDE RECORDS SUMMARY | 2024-02-11 22:49 | XMS_ITS | CCD ---
Author Organization [facility] Care Team Providers Care Detail Assembler Name Role Phone Latricia Guzman Primary Care [...] Unavailable Latricia Guzman MD Primary Care Provider [phone] MICHELLE, JON E Referring Unavailable HOY, [...] 3 Unknown (qualifier value), Nausea And Vomiting [facility] (1 source) Naproxen Drug Allergy [facility] Medications Current Medications Medication Drug [...] procedure., # 2 cap(s), Refills(s) 0, Pharmacy: [id number] Start Date: 05/12/22 Status: Ordered Problems [...] Alfonso Charles MD 03/13/23 Final result Normal [facility] OPERATIVE REPORTon OPERATIVE REPORT [address] [id number] OPERATIVE REPORT PATIENT NAME: ETHAN DONALD : 1990 MED REC NO: [id number] ROOM: ACCOUNT NO: [id number] ADMIT DATE: 03/13/2023 PROVIDER: Jon Reynoso DATE OF PROCEDURE: 03/13/2023 PREOPERATIVE DIAGNOSES: 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 POSTOPERATIVE DIAGNOSES: 1. Subluxing patella. 2. Chondromalacia. 3. Kent-Schlatter disease. PROCEDURES PERFORMED: Arthroscopy of right knee with: 1. Chondroplasty. 2. Lateral release. 3. Mini arthrotomy with excision of Kent-Schlatter ossicle. SURGEON: Dr. Jon Reynoso. ANESTHESIA: General. [...] was then oversewn with 2-0 Vicryl interrupted [id number] sutures. Skin margins were injected with 0.5% [...] in two weeks. JON REYNOSO [id number] Doc#: [id number] CC: Normal [facility] Basic Metabolic Profon 02-16 Anion gap [Moles/Vol] 11 mmol/L Normal - [facility] Comment on above: Performed By: #### B WENDY, CDP #### [facility] [address] [place] [address] Chief Quality Officer: Ramo Jesus MD BUN/CRE Ratio 9 Normal - [facility] Comment on above: Performed By: #### Marquez NGUYEN, CDP #### [facility] [address] [place] [address] Chief Quality Officer: Ramo Jesus MD Calcium [Mass/Vol] 9.7 mg/dL Normal 8.6-10.4 [facility] Comment on above: Performed By: #### Marquez NGUYEN, CDP #### [facility] [address] [place] [address] Chief Quality Officer: Ramo Jesus MD Chloride [Moles/Vol] 100 mmol/L Normal 98-107 [facility] Comment on above: Performed By: #### Marquez NGUYEN, CDP #### [facility] [address] [place] [address] Chief Quality Officer: Ramo Jesus MD CO2 [Moles/Vol] 27 mmol/L Normal 20-31 [facility] Comment on above: Performed By: #### Marquez NGUYEN, CDP #### [facility] [address] [place] [id number] Chief Quality Officer: Rmao Jesus MD Creatinine [Mass/Vol] 1.2 mg/dL Normal 0.7-1.2 [facility] Comment on above: Performed By: #### B WENDY, CDP #### [facility] [address] [place] [address] Chief Quality Officer: Ramo Jesus MD GFR/1.73 sq M.predicted among non-blacks MDRD (S/P/Bld) [Vol rate/Area] mL/min/{1.73_m2} Normal >60 [facility] Comment on above: Result Comment: These results [...] Performed By: #### B WENDY, CDP #### [facility] [address] [place], [place] [id number] Chief Quality Officer: Ramo Jesus MD Glucose [Mass/Vol] 115 mg/dL High 70-99 [facility] Comment on above: Performed By: #### B WENDY, CDP #### [facility] [address] [place] [address] Chief Quality Officer: Ramo Jesus MD Potassium [Moles/Vol] 3.9 mmol/L Normal 3.7-5.3 [facility] Comment on above: Performed By: #### B WENDY, CDP #### [facility] [address] [place] [id number] Chief Quality Officer: Ramo Jesus MD Sodium [Moles/Vol] 138 mmol/L Normal 135-144 [facility] Comment on above: Performed By: #### B WENDY, CDP #### [facility] [address] [place] [address] Chief Quality Officer: Ramo Jesus MD Urea nitrogen [Mass/Vol] 11 mg/dL Normal 6-20 [facility] Comment on above: Performed By: #### B WENDY, CDP #### [facility] [address] [place] [address] Chief Quality Officer: Ramo Jesus MD CBC with Diffon 02-16-2023 Abs. Basophil 0.07 k/uL Normal 0.00-0.20 [facility] Comment on above: Performed By: #### B WENDY, CDP #### [address] [place] [address] Chief Quality Officer: Ramo Jesus MD Abs.Imm.Granulocyte 0.04 k/uL Normal 0.00-0.30 [facility] Comment on above: Performed By: #### B WENDY, CDP #### [address] [place] [address] Chief Quality Officer: Ramo Jesus MD Abs.Neutrophil (Seg) 5.65 k/uL Normal 1.50-8.10 [facility] Comment on above: Performed By: #### B WENDY, CDP #### [address] [place], [place] [id number] Chief Quality Officer: Ramo Jesus MD Basophils/100 WBC (Bld) 1 % Normal 0-2 [facility] Comment on above: Performed By: #### B WENDY, CDP #### [facility] [address] [place] [address] [place] [address] Chief Quality Officer: Ramo Jesus MD Eosinophils (Bld) [#/Vol] 0.14 10*3/uL Normal 0.00-0.44 [facility] Comment on above: Performed By: #### B WENDY, CDP #### [address] [place] [address] Chief Quality Officer: Ramo Jesus MD Eosinophils/100 WBC (Bld) 2 % Normal 1-4 [facility] Comment on above: Performed By: #### B MP, CDP #### [facility] [address] [place] [address] Chief Quality Officer: Ramo Jesus MD Erythrocyte distribution width (RBC) [Ratio] 12.1 % Normal 11.8-14.4 [facility] Comment on above: Performed By: #### B MP, CDP #### [facility] [address] [place], [facility] Chief Quality Officer: Ramo Jesus MD Hematocrit (Bld) [Volume fraction] 44.9 % Normal 40.7-50.3 [facility] Comment on above: Performed By: #### B WENDY, CDP #### [facility] [address] [place], [facility] Chief Quality Officer: Ramo Jesus MD Hemoglobin (Bld) [Mass/Vol] 15.2 g/dL Normal 13.0-17.0 [facility] Comment on above: Performed By: #### B WENDY, CDP #### [facility] [address] [place] [address] Chief Quality Officer: Ramo Jesus MD Immature granulocytes/100 WBC (Bld) 1 % High 0 [facility] Comment on above: Performed By: #### B MP, CDP #### [facility] [address] [place] [facility] Chief Quality Officer: Ramo Jesus MD Lymphocytes (Bld) [#/Vol] 2.02 10*3/uL Normal 1.10-3.70 [facility] Comment on above: Performed By: #### B MP, CDP #### [facility] [address] [place], [place] [id number] Chief Quality Officer: Ramo Jesus MD Lymphocytes/100 WBC (Bld) 24 % Normal 24-43 [facility] Comment on above: Performed By: #### B MP, CDP #### [facility] [address] [place] [address] Chief Quality Officer: Ramo Jesus MD MCH (RBC) [Entitic mass] 31.6 pg Normal 25.2-33.5 [facility] Comment on above: Performed By: #### B MP, CDP #### [address] [place] [address] Chief Quality Officer: Ramo Jesus MD MCHC (RBC) [Mass/Vol] 33.9 g/dL Normal 28.4-34.8 [facility] Comment on above: Performed By: #### B MP, CDP #### [address] [place] [address] Chief Quality Officer: Ramo Jesus MD MCV (RBC) [Entitic vol] 93.3 fL Normal 82.6-102.9 [facility] Comment on above: Performed By: #### B MP, CDP #### [address] [place], [place] [id number] Chief Quality Officer: Ramo Jesus MD Monocytes (Bld) [#/Vol] 0.60 10*3/uL Normal 0.10-1.20 [facility] Comment on above: Performed By: #### B MP, CDP #### [address] [place], [place] [id number] Chief Quality Officer: Ramo Jesus MD Monocytes/100 WBC (Bld) 7 % Normal 3-12 [facility] Comment on above: Performed By: #### B MP, CDP #### [facility] [address] [place] [address] Chief Quality Officer: Ramo Jesus MD Neutrophil (Seg) 65 % Normal 36-[address] [facility] Comment on above: Performed By: #### B MP, CDP #### [facility] [address] [place] [address] Dr[address] [place], [facility] Chief Quality Officer: Ramo Jesus MD NRBC Automated 0.0 per 100 WBC Normal 0.0 [facility] Comment on above: Performed By: #### B WENDY, CDP #### [facility] [address] [place], [place] [id number] Chief Quality Officer: Ramo Jesus MD Platelet mean volume (Bld) [Entitic vol] 9.7 fL Normal 8.1-13.5 [facility] Comment on above: Performed By: #### B WENDY, CDP #### [facility] [address] [place], [place] [id number] Chief Quality Officer: Ramo Jesus MD Platelets (Bld) [#/Vol] 252 10*3/uL Normal 138-453 [facility] Comment on above: Performed By: #### B WENDY, CDP #### [facility] [address] [place], [place] [id number] Chief Quality Officer: Ramo Jesus MD RBC (Bld) [#/Vol] 4.81 10*6/uL Normal 4.21-5.77 [facility] Comment on above: Performed By: #### Marquez NGUYEN, CDP #### [address] [place], [place] [id number] Chief Quality Officer: Ramo Jesus MD WBC (Bld) [#/Vol] 8.5 10*3/uL Normal 3.5-11.3 [facility] Comment on above: Performed By: #### B WENDY, CDP #### [facility] [address] [place], [place] [id number] Chief Quality Officer: Ramo Jesus MD GROUP A STREP CULTUREon 07-30 S. pyogenes Ag Ql (Unsp spec) Culture Observations: NEGATIVE FOR GROUP A STREPTOCOCCUS. Normal [facility] Comment on above: Performed By: #### S SCRN, GRASTCX #### [facility] [address] [address] [address] Pratibha Stevenson STREPT SCREENon 08-11-2022 STREP SCREEN A Negative Normal NEGATIVE [facility] Comment on above: Performed By: #### S SCRN, GRASTCX #### [facility] [address] [place] [address] Dr. Pratibha Stevenson AMYLASEon 07-23-2022 Amylase [Catalytic activity/Vol] 50 U/L Normal 25-115 [facility] Comment on above: Performed By: #### E RUR #### [facility] [address] [place] [address] Dr. Pratibha Stevenson CBC AUTO DIFFon 07-23-2022 BASO # 0.1 103/ul Normal 0.0-0.1 [facility] Comment on above: Performed By: #### L ACT #### [facility] [address] [place] [address] Dr. Pratibha Stevenson Basophils/100 WBC (Bld) 1.0 % Normal 0.2-2.0 [facility] Comment on above: Performed By: #### L ACT #### [facility] [address] [place] [address] Dr. Pratibha Stevenson EO # 0.1 103/ul Normal 0.0-0.7 [facility] Comment on above: Performed By: #### L ACT #### [facility] [address] [place] [address] Dr. Pratibha Stevenson Eosinophils/100 WBC (Bld) 1.7 % Normal 0.9-7.0 [facility] Comment on above: Performed By: #### L ACT #### [facility] [address] [place] [address] Dr. Pratibha Stevenson Erythrocyte distribution width (RBC) [Ratio] 12.1 % Normal 11.0-15.0 [facility] Comment on above: Performed By: #### L ACT #### [facility] [address] [place] [address] Dr. Pratibha Stevenson Hematocrit (Bld) [Volume fraction] 45.9 % Normal 42.0-54.0 [facility] Comment on above: Performed By: #### L ACT #### [facility] [address] [place] [address] Dr. Pratibha Stevenson Hemoglobin (Bld) [Mass/Vol] 15.6 g/dL Normal 14.0-18.0 [facility] Comment on above: Performed By: #### L ACT #### [facility] [address] [place] [address] Dr. Pratibha Stevenson IG # 0.01 10e3/ul Normal 0.00-0.03 [facility] Comment on above: Performed By: #### L ACT #### [facility] [address] [place] [address] Dr. Pratibha Stevenson IG % 0.1 % Normal 0.0-0.5 [facility] Comment on above: Performed By: #### L ACT #### [facility] [address] [place] [address] Dr. Pratibha Stevenson LYMPH # 2.0 103/ul Normal 1.2-3.8 [facility] Comment on above: Performed By: #### L ACT #### [facility] [address] [place] [address] Dr. Pratibha Stevenson Lymphocytes/100 WBC (Bld) 28.8 % Normal 20.5-60.0 [facility] Comment on above: Performed By: #### L ACT #### [facility] [address] [place] [address] Dr. Pratibha Stevenson MANUAL DIFF REQ NO Normal [facility] Comment on above: Performed By: #### L ACT #### [facility] [address] [place] [address] Dr. Pratibha Stevenson MCH (RBC) [Entitic mass] 31.3 pg Normal 25.9-34.0 [facility] Comment on above: Performed By: #### L ACT #### [facility] [address] [place] [address] Dr. Pratibha Stevenson MCHC (RBC) [Mass/Vol] 34.0 g/dL Normal 29.9-35.2 [facility] Comment on above: Performed By: #### L ACT #### [facility] [address] [place] [address] Dr. Pratibha Stevenson MCV (RBC) [Entitic vol] 92.2 fL Normal 80.0-94.0 [facility] Comment on above: Performed By: #### L ACT #### [facility] [address] [place] [address] Dr. Pratibha Stevenson MONO # 0.3 103/ul Normal 0.3-0.8 [facility] Comment on above: Performed By: #### L ACT #### [facility] [address] [place] [address] Dr. Pratibha Stevenson Monocytes/100 WBC (Bld) 4.3 % Normal 1.7-12.0 [facility] Comment on above: Performed By: #### L ACT #### [facility] [address] [place] [address] Dr. Pratibha Stevenson NEUT # 4.5 103/ul Normal 1.4-6.5 [facility] Comment on above: Performed By: #### L ACT #### [facility] [address] [place] [address] Dr. Pratibha Stevenson Neutrophils/100 WBC (Bld) 64.1 % Normal 43.0-75.0 [facility] Comment on above: Performed By: #### L ACT #### [facility] [address] [place] [address] Dr. Pratibha Stevenson Platelet mean volume (Bld) [Entitic vol] 10.3 fL Normal 9.5-13.5 [facility] Comment on above: Performed By: #### L ACT #### [facility] [address] [place] [address] Dr. Pratibha Stevenson PLT 219 103/ul Normal 150-450 [facility] Comment on above: Performed By: #### L ACT #### [facility] [address] [place] [address] Dr. Pratibha Stevenson RBC 4.98 106/ul Normal 4.70-6.10 [facility] Comment on above: Performed By: #### L ACT #### [facility] [address] [place] [address] Dr. Pratibha Stevenson WBC 7.1 103/ul Normal 4.0-11.0 [facility] Comment on above: Performed By: #### L ACT #### [facility] [address] [address] [address] ABD/PELV W CONon [...] YING WALTON Date: 2022-07-22 23:53 Normal [facility] DRUG SCREEN RAPID (URINE)on 07-23-2022 AMP Negative Normal NEGATIVE [facility] Comment on above: Performed By: #### E RUR #### [facility] [address] [place] [address] Dr. Pratibha Stevenson [facility] Negative Normal NEGATIVE [facility] Comment on above: Performed By: #### E RUR #### [facility] [address] [address] [address] Pratibha Stevenson [facility] Negative Normal NEGATIVE [facility] Comment on above: Performed By: #### E RUR #### [facility] [address] [place] [address] Dr. Pratibha Stevenson BZO Negative Normal NEGATIVE [facility] Comment on above: Performed By: #### E RUR #### [facility] [address] [place] [address] Dr. Pratibha Stevenson EMELY Negative Normal NEGATIVE [facility] Comment on above: Performed By: #### E RUR #### [facility] [address] [place] [address] Dr. Pratibha Stevenson CUT-OFFS SEE BELOW Normal [facility] Comment on above: Result Comment: AMP [...] ng/mL Performed By: #### E RUR #### [facility] [address] [place] [address] Dr. Pratibha Stevenson DRUG CUT HEADER DRUG CLASS TEST SYST EM CUT-OFF CONCENTRATIONS ARE FOLLOWS: Normal [facility] Comment on above: Performed By: #### E RUR #### [facility] [address] [place] [address] Dr. Pratibha Stevenson mAMP Negative Normal NEGATIVE [facility] Comment on above: Performed By: #### E RUR #### [facility] [address] [place] [address] Dr. Pratibha Stevenson MTD Negative Normal NEGATIVE [facility] Comment on above: Performed By: #### E RUR #### [facility] [address] [place] [address] Dr. Pratibha Stevenson OPI Positive Abnormal NEGATIVE [facility] Comment on above: Performed By: #### E RUR #### [facility] [address] [place] [address] Dr. Pratibha Stevenson OXY Negative Normal NEGATIVE [facility] Comment on above: Performed By: #### E RUR #### [facility] [address] [place] [address] Dr. Pratibha Stevenson PCP Negative Normal NEGATIVE [facility] Comment on above: Performed By: #### E RUR #### [facility] [address] [place] [address] Dr. Pratibha Stevenson PPX Negative Normal NEGATIVE [facility] Comment on above: Performed By: #### E RUR #### [facility] [address] [place] [address] Dr. Pratibha Stevenson TCA Positive Abnormal NEGATIVE [facility] Comment on above: Performed By: #### E RUR #### [facility] [address] [place] [address] Dr. Pratibha Stevenson THC Positive Abnormal NEGATIVE [facility] Comment on above: Performed By: #### E RUR #### [facility] [address] [place] [address] Dr. Pratibha Stevenson ER URINE PROFILEon 3 Bilirubin Ql (U) Negative Normal NEGATIVE [facility] Comment on above: Performed By: #### E RUR #### [facility] [address] [place] [address] Dr. Pratibha Stevenson Clarity (U) CLEAR Normal CLEAR [facility] Comment on above: Performed By: #### E RUR #### [facility] [address] [place] [address] Dr. Pratibha Stevenson Color (U) LT. YELLOW Normal YELLOW [facility] Comment on above: Performed By: #### E RUR #### [facility] [address] [place] [address] Dr. Pratibha RIOS A micrscopic examination will be performed if indicated. Normal [facility] Comment on above: Performed By: #### E RUR #### [facility] [address] [place] [address] Dr. Pratibha Stevenson Glucose Ql (U) Negative Normal NEGATIVE [facility] Comment on above: Performed By: #### E RUR #### [facility] [address] [place] [address] Dr. Pratibha Stevenson Hemoglobin Ql (U) Negative Normal NEGATIVE [facility] Comment on above: Performed By: #### E RUR #### [facility] [address] [place] [address] Dr. Pratibha Stevenson Ketones Ql (U) Negative Normal NEGATIVE [facility] Comment on above: Performed By: #### E RUR #### [facility] [address] [place] [address] Dr. Pratibha Stevenson LEUKOCYTES Negative Normal NEGATIVE [facility] Comment on above: Performed By: #### E RUR #### [facility] [address] [place] [address] Dr. Pratibha Stevenson Nitrite Ql (U) Negative Normal NEGATIVE [facility] Comment on above: Performed By: #### E RUR #### [facility] [address] [place] [address] Dr. Pratibha Stevenson pH (U) 5.5 [pH] Normal 5-9 [facility] Comment on above: Performed By: #### E RUR #### [facility] [address] [place] [address] Dr. Pratibha Stevenson SPEC GRAVITY <=1.005 Abnormal 1.005-<=1.025 [facility] Comment on above: Performed By: #### E RUR #### [facility] [address] [place] [address] Dr. Pratibha Stevenson UA PROTEIN Negative Normal NEGATIVE/ TRACE [facility] [facility] Comment on above: Performed By: #### E RUR #### [facility] [address] [place] [address] Dr. Pratibha Stevenson UR MICRO IND NOT INDICATED Normal [facility] Comment on above: Performed By: #### E RUR #### [facility] [address] [place] [address] Dr. Pratibha Stevenson Urobilinogen Qn (U) 0.2 {Butch'U}/dL Normal 0.2 - 1. 0 [facility] Comment on above: Performed By: #### E RUR #### [facility] [address] [place] [address] Dr. Pratibha Stevenson LIPASEon 07-23-2022 Lipase [Catalytic activity/Vol] 126.0 U/L Normal 73.0-393.0 [facility] Comment on above: Performed By: #### E RUR #### [facility] [address] [place] [address] Dr. Pratibha Stevenson PROF 14(COMP METB)on 023 Albumin [Mass/Vol] 4.2 g/dL Normal 3.4-5.0 [facility] Comment on above: Performed By: #### E RUR #### [facility] [address] [place] [address] Dr. Pratibha Stevenson Albumin/Globulin [Mass ratio] 1.4 {ratio} Normal [facility] Comment on above: Performed By: #### E RUR #### [facility] [address] [place] [address] Dr. Pratibha Stevenson ALP [Catalytic activity/Vol] 87 U/L Normal 46-116 [facility] Comment on above: Performed By: #### E RUR #### [facility] [address] [place] [address] Dr. Pratibha Stevenson ALT [Catalytic activity/Vol] 20 U/L Normal 16-63 [facility] Comment on above: Performed By: #### E RUR #### [facility] [address] [place] [address] Dr. Pratibha Stevenson Anion gap [Moles/Vol] 12.8 mmol/L Normal [facility] Comment on above: Performed By: #### E RUR #### [facility] [address] [place] [address] Dr. Pratibha Stevenson AST [Catalytic activity/Vol] 18 U/L Normal 15-37 [facility] Comment on above: Performed By: #### E RUR #### [facility] [address] [place] [address] Dr. Pratibha Stevenson Bilirubin [Mass/Vol] 0.5 mg/dL Normal 0.2-1.0 [facility] Comment on above: Performed By: #### E RUR #### [facility] [address] [place] [address] Dr. Pratibha Stevenson Calcium [Mass/Vol] 9.2 mg/dL Normal 8.5-10.1 [facility] Comment on above: Performed By: #### E RUR #### [facility] [address] [address] [address] Pratibha Stevenson Chloride [Moles/Vol] 101 mmol/L Normal 98-107 [facility] Comment on above: Performed By: #### E RUR #### [facility] [address] [place] [address] Dr. Pratibha Stevenson CO2 [Moles/Vol] 24.7 mmol/L Normal 21.0-32.0 [facility] Comment on above: Performed By: #### E RUR #### [facility] [address] [place] [address] Dr. Pratibha Stevenson Creatinine [Mass/Vol] 1.20 mg/dL Normal 0.70-1.30 [facility] Comment on above: Performed By: #### E RUR #### [facility] [address] [place] [address] Dr. Pratibha Stevenson EGFR-AF HAITIAN >60 Normal >=60 [facility] Comment on above: Performed By: #### E RUR #### [facility] [address] [place] [address] Dr. Pratibha Stevenson EGFR-NON AF HAITIAN >60 Normal >=60 [facility] Comment on above: Performed By: #### E RUR #### [facility] [address] [place] [address] Dr. Pratibha Stevenson Globulin (S) [Mass/Vol] 3.1 g/dL Normal [facility] Comment on above: Performed By: #### E RUR #### [facility] [address] [place] [address] Dr. Pratibha Stevenson Glucose [Mass/Vol] 128 mg/dL Critically high 74-106 [facility] Comment on above: Performed By: #### E RUR #### [facility] [address] [place] [address] Dr. Pratibha Stveenson Potassium [Moles/Vol] 3.5 mmol/L Normal 3.5-5.1 [facility] Comment on above: Performed By: #### E RUR #### [facility] [address] [place] [address] Dr. Pratibha Stevenson Protein [Mass/Vol] 7.3 g/dL Normal 6.4-8.2 [facility] Comment on above: Performed By: #### E RUR #### [facility] [address] [place] [address] Dr. Pratibha Stevenson Sodium [Moles/Vol] 135 mmol/L Critically low 136-145 [facility] Comment on above: Performed By: #### E RUR #### [facility] [address] [place] [address] Dr. Pratibha Stevenson Urea nitrogen [Mass/Vol] 10.0 mg/dL Normal 7.0-18.0 [facility] Comment on above: Performed By: #### E RUR #### [facility] [address] [place] [address] Dr. Pratibha Stevenson Urea nitrogen/Creatinine [Mass ratio] 8.3 mg/mg Normal [facility] Comment on above: Performed By: #### E RUR #### [facility] [address] [place] [address] Dr. Pratbiha Stevenson Screenson 07-22-2022 Screens [id number]. 00CD:127 Normal [facility] Screens [id number]#1. 00CD:127 Normal [facility] Patient Educationon 07-22-19 Patient [...] Rhubarb. ? Beets. ? Potato chips and equatorial guinean fries. ? Nuts. ? If you regularly take a diuretic medicine, make sure to eat at least 1?2 fruits or vegetables high in potassium each day. These include: ? Avocado. ? Banana. ? Adirondack, prune, carrot, or tomato juice. ? Baked [...] loco (more content not included)... Normal [facility] Urology Office/Clinic Noteon 07-21-2022 Urology Office/Clinic Note Chief Complaint pt here for a hospital f/u for kidney stones HPI Staff Pt is a 31 yr old Male here today for a hospital f/u from [facility] for a kidney stone. CT scan done 07/20/22 shows Bilateral nonobstructive renal calculi. No hydronephrosis or hydroureter hepatomegaly. Pts previous DX: kidney stone, ureteral stone. IPSS 26. Pt states he started feeling pain on Monday in the right upper back area and presented to the ER on Monday. Pt had CT scans done at [facility]. Pt states the pain is now moving [...] of urinary calculi) Urology consult 05/08/22 at [facility] due to 4-5 mm Ureteral Stone [...] calculus (05/08/2022) (more content not included)... Normal [facility] Comment on above: Result Comment: Elec tronically Signed By: Shirley Murrell MD\.br\Date and Time Signed: 07/21/22 16:55 EDT\.br\Electronically Co-Signed By: Shalini Macias\.br\Date and Time Co-Signed: 07/21/22 09:40 EDT CBC AUTO DIFFon 07-20-2022 BASO # 0.1 103/ul Normal 0.0-0.1 [facility] Comment on above: Performed By: #### C BC #### [facility] [address] [address] [address] Pratibha Stevenson Basophils/100 WBC (Bld) 0.7 % Normal 0.2-2.0 [facility] Comment on above: Performed By: #### C BC #### [facility] [address] [place] [address] Dr. Pratibha Stevenson EO # 0.2 103/ul Normal 0.0-0.7 [facility] Comment on above: Performed By: #### C BC #### [facility] [address] [place] [address] Dr. Pratihba Stevenson Eosinophils/100 WBC (Bld) 2.4 % Normal 0.9-7.0 [facility] Comment on above: Performed By: #### C BC #### [facility] [address] [place] [address] Dr. Pratibha Stevenson Erythrocyte distribution width (RBC) [Ratio] 12.4 % Normal 11.0-15.0 [facility] Comment on above: Performed By: #### C BC #### [facility] [address] [place] [address] Dr. Pratibha Stevenson Hematocrit (Bld) [Volume fraction] 45.8 % Normal 42.0-54.0 [facility] Comment on above: Performed By: #### C BC #### [facility] [address] [place] [address] Dr. Pratibha Stevenson Hemoglobin (Bld) [Mass/Vol] 15.6 g/dL Normal 14.0-18.0 [facility] Comment on above: Performed By: #### C BC #### [facility] [address] [place] [address] Dr. Pratibha Stevenson IG # 0.03 10e3/ul Normal 0.00-0.03 [facility] Comment on above: Performed By: #### C BC #### [facility] [address] [place] [address] Dr. Pratibha Stevenson IG % 0.4 % Normal 0.0-0.5 [facility] Comment on above: Performed By: #### C BC #### [facility] [address] [place] [address] Dr. Pratibha Stevenson LYMPH # 3.0 103/ul Normal 1.2-3.8 [facility] Comment on above: Performed By: #### C BC #### [facility] [address] [place] [address] Dr. Pratibha Stevenson Lymphocytes/100 WBC (Bld) 34.7 % Normal 20.5-60.0 [facility] Comment on above: Performed By: #### C BC #### [facility] [address] [place] [address] Dr. Pratibha Stevenson MANUAL DIFF REQ NO Normal [facility] Comment on above: Performed By: #### C BC #### [facility] [address] [place] [address] Dr. Pratibha Stevenson MCH (RBC) [Entitic mass] 31.3 pg Normal 25.9-34.0 [facility] Comment on above: Performed By: #### C BC #### [facility] [address] [place] [address] Dr. Pratibha Stevenson MCHC (RBC) [Mass/Vol] 34.1 g/dL Normal 29.9-35.2 [facility] Comment on above: Performed By: #### C BC #### [facility] [address] [place] [address] Dr. Pratibha Stevenson MCV (RBC) [Entitic vol] 92.0 fL Normal 80.0-94.0 [facility] Comment on above: Performed By: #### C BC #### [facility] [address] [place] [address] Dr. Pratibha Stevenson MONO # 0.5 103/ul Normal 0.3-0.8 [facility] Comment on above: Performed By: #### C BC #### [facility] [address] [place] [address] Dr. Pratibha Stevenson Monocytes/100 WBC (Bld) 5.9 % Normal 1.7-12.0 [facility] Comment on above: Performed By: #### C BC #### [facility] [address] [place] [address] Dr. Pratibha Stevenson NEUT # 4.8 103/ul Normal 1.4-6.5 [facility] Comment on above: Performed By: #### C BC #### [facility] [address] [place] [address] Dr. Pratibha Stevenson Neutrophils/100 WBC (Bld) 55.9 % Normal 43.0-75.0 [facility] Comment on above: Performed By: #### C BC #### [facility] [address] [place] [address] Dr. Pratibha Stevenson Platelet mean volume (Bld) [Entitic vol] 10.0 fL Normal 9.5-13.5 [facility] Comment on above: Performed By: #### C BC #### [facility] [address] [place] [address] Dr. Pratibha Stevenson PLT 243 103/ul Normal 150-450 [facility] Comment on above: Performed By: #### C BC #### [facility] [address] [place] [address] Dr. Pratibha Stevenson RBC 4.98 106/ul Normal 4.70-6.10 [facility] Comment on above: Performed By: #### C BC #### [facility] [address] [place], [place] [address] Dr. Pratibha Stevenson WBC 8.5 103/ul Normal 4.0-11.0 [facility] Comment on above: Performed By: #### C BC #### [facility] [address] [place], [place] [address] Dr. Pratibha Stevenson CT ABD/PELVIS WO CONon [...] ROSALINO VIDALES Date: 2022-07-20 04:12 Normal [facility] ER URINE PROFILEon 3 Bilirubin Ql (U) Negative Normal NEGATIVE [facility] Comment on above: Performed By: #### L ACT #### [facility] [address] [place] [address] Dr. Pratibha Stevenson Clarity (U) CLEAR Normal CLEAR [facility] Comment on above: Performed By: #### L ACT #### [facility] [address] [place] [address] Dr. Pratibha Stevenson Color (U) LT. YELLOW Normal YELLOW [facility] Comment on above: Performed By: #### L ACT #### [facility] [address] [place] [address] Dr. Pratibha Stevenson ERUAHD A micrscopic examination will be performed if indicated. Normal [facility] Comment on above: Performed By: #### L ACT #### [facility] [address] [place] [address] Dr. Pratibha Stevenson Glucose Ql (U) Negative Normal NEGATIVE [facility] Comment on above: Performed By: #### L ACT #### [facility] [address] [place] [address] Dr. Pratibha Stevenson Hemoglobin Ql (U) Negative Normal NEGATIVE [facility] Comment on above: Performed By: #### L ACT #### [facility] [address] [place] [address] Dr. Pratibha Stevenson Ketones Ql (U) Negative Normal NEGATIVE [facility] Comment on above: Performed By: #### L ACT #### [facility] [address] [place] [address] Dr. Pratibha Stevenson LEUKOCYTES Negative Normal NEGATIVE [facility] Comment on above: Performed By: #### L ACT #### [facility] [address] [place] [address] Dr. Pratibha Stevenson Nitrite Ql (U) Negative Normal NEGATIVE [facility] Comment on above: Performed By: #### L ACT #### [facility] [address] [place] [address] Dr. Pratibha Stevenson pH (U) 6.0 [pH] Normal 5-9 [facility] Comment on above: Performed By: #### L ACT #### [facility] [address] [place] [address] Dr. Pratibha Stevenson SPEC GRAVITY <=1.005 Abnormal 1.005-<=1.025 [facility] Comment on above: Performed By: #### L ACT #### [facility] [address] [place] [address] Dr. Pratibha Stevenson UA PROTEIN Negative Normal NEGATIVE/ TRACE [facility] Comment on above: Performed By: #### L ACT #### [facility] [address] [place] [address] Dr. Pratibha Stevenson UR MICRO IND NOT INDICATED Normal [facility] Comment on above: Performed By: #### L ACT #### [facility] [address] [place] [address] Dr. Pratibha Stevenson Urobilinogen Qn (U) 0.2 {Butch'U}/dL Normal 0.2 - 1. 0 [facility] Comment on above: Performed By: #### L ACT #### [facility] [address] [place] [address] Dr. Pratibha Stevenson LACTATE/LACTIC ACIDon 2022 Lactate [Moles/Vol] 0.8 mmol/L Normal 0.4-2.[address] [facility] Comment on above: Performed By: #### L ACT #### [facility] [address] [place] [address] Dr. Pratibha Stevenson PROF 14(COMP METB)on 023 Albumin [Mass/Vol] 4.3 g/dL Normal 3.4-5.0 [facility] Comment on above: Performed By: #### E RUR #### [facility] [address] [place] [address] Dr. Pratibha Stevenson Albumin/Globulin [Mass ratio] 1.3 {ratio} Normal [facility] Comment on above: Performed By: #### E RUR #### [facility] [address] [place] [address] Dr. Pratibha Stevenson ALP [Catalytic activity/Vol] 94 U/L Normal 46-116 [facility] Comment on above: Performed By: #### E RUR #### [facility] [address] [place] [address] Dr. Pratibha Stevenson ALT [Catalytic activity/Vol] 23 U/L Normal 16-63 [facility] Comment on above: Performed By: #### E RUR #### [facility] [address] [place] [address] Dr. Pratibha Stevenson Anion gap [Moles/Vol] 10.5 mmol/L Normal [facility] Comment on above: Performed By: #### E RUR #### [facility] [address] [place] [address] Dr. Pratibha Stevenson AST [Catalytic activity/Vol] 21 U/L Normal 15-37 [facility] Comment on above: Performed By: #### E RUR #### [facility] [address] [place] [address] Dr. Pratibha Stevenson Bilirubin [Mass/Vol] 0.5 mg/dL Normal 0.2-1.0 [facility] Comment on above: Performed By: #### E RUR #### [facility] [address] [place] [address] Dr. Pratibha Stevenson Calcium [Mass/Vol] 9.3 mg/dL Normal 8.5-10.1 [facility] Comment on above: Performed By: #### E RUR #### [facility] [address] [place] [address] Dr. Pratibha Stevenson Chloride [Moles/Vol] 102 mmol/L Normal 98-107 [facility] Comment on above: Performed By: #### E RUR #### [facility] [address] [place] [address] Dr. Pratibha Stevenson CO2 [Moles/Vol] 26.2 mmol/L Normal 21.0-32.0 [facility] Comment on above: Performed By: #### E RUR #### [facility] [address] [address] [address] Pratibha Stevenson Creatinine [Mass/Vol] 1.18 mg/dL Normal 0.70-1.30 [facility] Comment on above: Performed By: #### E RUR #### [facility] [address] [address] [address] Pratibha Stevenson EGFR-AF HAITIAN >60 Normal >=60 [facility] Comment on above: Performed By: #### E RUR #### [facility] [address] [place] [address] Dr. Pratibha Stevenson EGFR-NON AF HAITIAN >60 Normal >=60 [facility] Comment on above: Performed By: #### E RUR #### [facility] [address] [place] [address] Dr. Pratibha Stevenson Globulin (S) [Mass/Vol] 3.2 g/dL Normal [facility] Comment on above: Performed By: #### E RUR #### [facility] [address] [place] [address] Dr. Pratibha Stevenson Glucose [Mass/Vol] 115 mg/dL Critically high 74-106 T [facility] Comment on above: Performed By: #### E RUR #### [facility] [address] [place] [address] Dr. Pratibha Stevenson Potassium [Moles/Vol] 3.7 mmol/L Normal 3.5-5.1 [facility] Comment on above: Performed By: #### E RUR #### [facility] [address] [place] [address] Dr. Pratibha Stevenson Protein [Mass/Vol] 7.5 g/dL Normal 6.4-8.2 [facility] Comment on above: Performed By: #### E RUR #### [facility] [address] [place] [address] Dr. Pratibha Stevenson Sodium [Moles/Vol] 135 mmol/L Critically low 136-145 Th [facility] Comment on above: Performed By: #### E RUR #### [facility] [address], [place] [address] Dr. Pratibha Stevenson Urea nitrogen [Mass/Vol] 11.0 mg/dL Normal 7.0-18.0 [facility] Comment on above: Performed By: #### E RUR #### [facility] [address], [place] [address] Dr. Pratibha Stevenson Urea nitrogen/Creatinine [Mass ratio] 9.3 mg/mg Normal [facility] Comment on above: Performed By: #### E RUR #### [facility] [address] [address] [address] Pratibha Stevenson TROPONIN, HIGH SENSITIVITYon 07-20-2022 HSTROP 5.0 pg/mL Normal 4.0-76.1 [facility] Comment on above: Result Comment: CUT- OFF POINTS HAVE BEEN ESTABLISHED BASED ON THE FOURTH UNIVERSAL DEFINITIONS OF MYOCARDIAL INFARCTION. THE UPPER REFERENCE LIMIT (URL) OF TROPONIN, DEFINED THE 99TH PERCENTILE OF cTnI DISTRIBUTION IN A REFERENCE POPULATION, HAS BEEN CONFIRMED THE DECISION THRESHOLD FOR [place] DIAGNOSIS. Performed By: #### E RUR #### [facility] [address] [address] [address] Pratibha Stevenson Formson 07-15-2022 Forms [id number]#1.0 0CD:127 Normal [facility] Screenson 07-15-2022 Screens [id number]#1.0 0CD:127 Normal [facility] Screens [id number]#1.0 0CD:127 [facility] [facility] Patient Educationon 07-14-19 Patient Education Urology Dietary [...] Rhubarb. ? Beets. ? Potato chips and equatorial guinean fries. ? Nuts. ? If you regularly take a diuretic medicine, make sure to eat at least 1?2 fruits or vegetables high in potassium each day. These include: ? Avocado. ? Banana. ? [place], prune, carrot, or tomato juice. ? Baked [...] dr (more content not included)... Normal [facility] Urology Office/Clinic Noteon 07-13-2022 Urology Office/Clinic Note Chief Complaint Pt is here for PO stent removal HPI Staff Ethan is a 31 y.o. male new patient here for [facility] ER follow up. Urology consult done 05/08/22 @ [facility] due to 4-5mm Ureteral Stone. S/P [...] yo male new patient following up to [facility] ER. IPSS 13. MARGOTH 14. 1. Ureteral stone (N20.1: Calculus of ureter) Urology consult 05/08/22 at [facility] due to 4-5 mm Ureteral Stone [...] 12/26/1997 Recor (more content not included)... Normal [facility] Comment on above: Result Comment: Elec tronically Signed By: Shirley Murrell MD\.br\Date and Time Signed: 07/13/22 16:53 EDT\.br\Electronically Co-Signed By: Shalini Macias.br\Date and Time Co-Signed: 07/13/22 10:29 EDT RAD - MISCon 07-11-2022 RAD - MISC [id number]#1.0 0CD:127 Normal [facility] RAD - Ultrasound Reporton RAD - Ultrasound Report [id number]#1.0 0CD:127 Normal [facility] US KIDNEYSon 07-06-2022 US [...] by: RAMO BLAKE Date: 2022-07-06 11:14 Normal [facility] XR KUB 1 VIEWon 07-06-2022 XR KUB [...] by: SAUMYA MARSH Date: 2022-07-06 11:57 Normal [facility] Coding Summary.on 05-30-2022 Coding Summary. CD:[id number] Gh 0bWw+PGhlYWQ+IB5TAGVmM 69ijLLwoV6FC5tQSA7KPJP YFQZIWD0GOS4etBD7NHfvJ 2VybiAv XgnqyPFiQX17WAb5DHN3tZ joLPxqgC0nmIVlN3k3TgRs XW26tO51CGpiKGXbHxC6Zb ZpbjsgbWFy A2kpZzLebZUwZzi+PHRhYm xlIHdpZHRoPScxMDAlJyBz xTizPA3aZg5mRBKdUAQyiK xhcHNlOiBj r7cvDUNhQVjnDK6xpEcrX1 YqvDF8XOByn8g5Un29gJL+ BXMoNHX3gCloZXsul196Zj Lzr5jlXXC2 gMPnEOzlDTQ5U75bb0A8XC YdMHKfCQA5wRU2hV1lzCgb vcgpZ9HynWYjLdZ2OBR6tE KwtY1neVgu khbvhG2yYxa+J98AGQ0QXC PVHM4NVun8L1KnMlskwRB+ GR59SCJwXX36cFHclVWxp3 jxoJa9UiHn CPMaPSY8yAraZSsir5GzNO DjZ46sdOEfn8I5HITjhKly bRNuYdXwbMA0bU5hYAhvrs eow1sdnpyd Szynq3gsub70lH32Z67cWE rjZPJhVLB7KOUdRORxdQtd go0hgR8lIn9+LEhgl4izk5 lzpUh9ArWi WHXpmrNksWxbDLK4s2EsAo 73K3UguHxty9LdWrc0sz05 dHXor0M0cBS3SObbYYGpaC 6qSWlwJvG4 NHRqGwLdaR54uHAfCTmrAn 2zbAspyCqnNB3qAGLsnkmn TJJalC8fDBAzySLrmAmpNX 4wNTBpbjtm l271OpZgISF5NUMabTUuQ2 OsbA4pYjNsGPAtCOSsP6Sd qFExXOhqF416MAzjIzC5IO WahrQcM1Ib XCSbpFluBsP8w1U2Tp1Wd6 TgmwhwCGN5EFbhOXUsWzSx UfNxVsF0C4SmJip1KBZhwG xwWD6qM2Zd XGTjwgrbwshlmIR0IKLcLU JxrA17tSZwSEctVl2az8E4 e571PXQpZTRmkQ58Sd8fzW ogMTBwdCBU tZ0ujjelx9arnwufRyMvAX EiJLd2ZEv1LSMfhLukElDr CTP2HwC4RXT0hTMakU9xsE twokfxoW1t Oyc+Y34evG2vSDJ4XEI7lv srGOLxfaJaPT73JG55H1Km PjwvdGFibGU+PGRpdiBzdH ktLE4gVdEk h5afo2PtXOhvX7AtWMZhNS njBvu9RYIwSWX4sER5bD5y XEMqRMcid0T1aZJ7U9Qeht Tlcq2vz2ni XHHxUAkfR42asEKfh8J1QR BanRB9BFTxqUnjAoUysS50 Oyc+TCIbeBnsx2ZmRgtch3 rqe1pvyFo1 ZeJvPQZxzyGvsBpyHIW3l6 IdPo00T16eCDchLPJtUSYo FFEvUWTaxTvnla6wrD5fQz 8+PGNvbCB3 mGE3uX8lEPKlBtO9TBpsV8 51WjNwiDAsUcatw2ncw8ei uTw6WmIvLRYezvVfmZvuZE N1d6CiGl36 O21iSKabGKQbJYXuCPCnMI ZlvJpzrr4stH7uIe6+PC9j j9voeg41hO42xQH+PHRkIH A5sGeiAKsn YIWccE2fTBzjXeI8CWDaYa DfiA78xKJpAEybEm4ljUwz sWzkFP0qFYKcveyqk207Oa Kyp4fbUSYm fHCsPAquZQT5D02yi9Z4RG AhKAMpXKD2kKD0iQ4awGpg bjogbGVmdDsgdmVydGljYW bkIUvuY088 IHRvcDsnPlBhdGllbnQgTm ZfGTa4Z7UiNwy0GVAtvEcw AT5aaGXnKYtaBc8dwZqslW rxMU0rYXVn iwmwo113ZgVqy6mvPUCkzL PhSRwoAGN3F45sh0Q6DFFn QJZhNGN4wKQ8bD3uwOyjtz ogbGVmdDsg wuQsqVmjTCxaHPjlT394EZ RvcDsnPkJpcnRoIERhdGU6 FC79TZ59mWKqb6G5jVV1M4 BhZGRpbmct tkfplYL2YCQeWFAeuF88Dr 8nsGcnBw7lVXSqTII1AVAi dYMtO0OvzT5tDyIyCKHmDE CjH8EpzAWt VDvpE659QTbzUrU5WYEjwv OeM3OxYUDnlEbwJlF9i3U8 Qk5VL3H5GC94EC43lOBrb9 U8cAP0B2On JBXnapsyxrfyoZV3OOWwPQ MaaS35Kw0gsPlvQy8aBRTq YDM4CKJyzTKvH0XklD9fDz AjMDAwMDAw Z7MwrTZvYCamP597MJzuKs V7PFIspfTkV5NmRBNgrIvq LpC9m6W1Cr1KVAb8FP20GC 38zZIqp7L2 oCZ9O7YpBZLpyshzhhjaoU O4ZMEcDYYeuR26Jq0ptAzr Jl3gOLZtUZR1BIUgxVQyD6 GigF4yLfSe JIMbTSTsS9IjfUIwXHfpQ5 86LKlyKsQ5CZAuzpIxM5Nq EEHqyWflNiY1z9E0Yk6YNW JcNM07KIR6 qKZ4LA17SD08O8MoAcwbxO FibGU+PHRhYmxlIHdpZHRo ERqaWVZbOzEkaUogIX9lDn 9yZGVyLWNv tZjlpJUfWlZux5rkRAEjDN jhAI1jzCmzK5OtcIQ7FAUw t2k9Pd12E18zB5MprMQ+PG UqpJG1hCA9 dK9oIkXrBxM0XIooV903Tr QevCFgHzlgq9irv0fxcQk2 KiP0GIFoneXurUcbFLU8w9 SeMf47J64o IHdpZHRoPSIxNSUiIHZhbG dmfw6ojN5mIa4+PGNvbCB3 jSX7nO1wLbMbZwB6YMwuM1 49InRvcCIv Sbadk7ofj8jcjYd7XiXsXT FweiIrcDnmYQQ7i6AxPe54 B4ZkfRath4DxDkc1tn28iY Ioi2H8lMO4 R0WyVJOvufqyxALbqLvmRD 8qWSGzvfllHVZavB4pJOXk K1u0LoQnYxG4TRxvP3Mauh J6QSFjbUKx MWdkNTT0R77ze2S5OEDnUJ GiNYG9tGM0lD3hlSjuqidb bGVmdDsgdmVydGljYWwtYW ltC621OQAv eBpjBHGbvX3cRCYndNYyhO iePT1uPIDaalqdOyPTFWUW OayjLCZIZ87gQHwneIF+PH WxMBJ5iUyq QHxgOIEmeP7sOBYfU5a1Sg IqCtQ6AXutT0QuHLLkyjmq Lf98hA5cTpApDqW0REsjT3 LudpB8KOJs vTNmYVonLDT9H73oa8O5XL YrTKZnYYS7pJI6rJ7gwYuz bjogbGVmdDsgdmVydGljYW szGUjzU251 OPWzsGaqGmC3RmT9LfP7TQ R2V1RsFui0AYBmqFwzMW0y rVFtGNzgMj3orXgkwFgyKZ 4wNTBpbjtw THUhbV4nCVKloYTboXitYO 1oGWZvzojva449BwEnYXA4 QNPamUStA8OdiJ9uDkXpCJ XmXNXtS1Yv dZPjEJoeR442NOhuLbE2XW NlthHmQ0BxVITmlZsfEbX6 g9X5Fm6uMNWNITSodxqbsX Q+PHRkIHN0 xJvbSPnvYOAclX8fRRScQ1 w0IeKmIfP3IGcpG6ZmNTHk adrhCm37jE4iMeZiYkM0EC oiV9BrbtX5 CYOdqZDmIEmkAID1C78iu2 T0HUMhHVZaUWQ5nQR0iG5n bGlnbjogbGVmdDsgdmVydG ljYWwtYWxp Z330TPSmdDebJy4xdWU9E6 TnCvi6GVSjrHlxQY8ysXOq BHrkCk9vnJeygVygDS6bAX BpbjtwYWRk iO8jNWRnwGRisJzeFT0dGL Xxkergz415TrVtUZT3DZSw yRJnI3TpxS7vSzCeFPFxJA XkK3FfmGEh FZecJ378ZQnhYlT5BOKuks FlR6OxNQRfbGeuYtA6c0K1 Vt1CoJWhQEVgUG84IU15RG 83M7OeZtyh dGFibGU+PHRhYmxlIHdpZH IkVRkgTVGjVwZfdEgvXB1r Zz1wXUSaMEVljUopeXKyFk Znv0srXFXo TDokGH1pyXysH6BlgZW7ER Wjq0w3Qv61G06lZ8YdrFW+ GGOzmYV2tMK6qO3lApFoAl E7YZasU898 BhPgcVUqNakss7fus8pxbQ e2AxSwDVYblpSljNntDUS2 o9CeUd30V02bCRwxCBBrVS IyMCUiIHZh tFozoy0vwU6aFg3+PGNvbC R4tSO1aX2aAyUnOnQ7KXmq W941QkZydPVlZbxaT45qT6 JvdXA+PHRy Wgt6ZNQnlLyfXQ6yqMMeLU oaCj2nEFW7KjTyWvToTIfb G5XgBHJfhmwduvqjlSQ4NK FeBLLgtO48 Gu8yeSisPg8dRJEwARO2UH FqgVLbR9FmxF8vUfNyTIXa PPKmW4YykLQsRXixO433VP wpNtY6ZDTg hlBrF4FeUQTtzVsoKlH6e7 L2Oz6PgVomeIMkZZ3eFdOo TLq7R2FfXeb5KQVzrXoqUU 0ncGFkZGlu Su5wdQyovBqjWI3aYFLket heh181YwZhu5mrTBKgrWIm JXrhXWA6K27la5S7EWSbBU FrUSS4fHW5 jV2zpDacygsuwEMutPeuop EtmFstGZyyIHleE704XGNx uPxqHjIXDde0B6JoPov3UW IyxQtcJB7j cCNqFPtqIx2mjBmyzQjiJE 1wUYJrkayfa306NhAmz1xu FIPkeNLuVOefWZK8J04bc2 Z2VHPyCDHt UBQ0uXL0kB8vdOwmqxjpkZ VmdDsgdmVydGljYWwtYWxp C109HOLmsMveIp8VQcc9B9 MsKbe8DPOs aMkzFG1lePFoIDqwZc6euQ qznRonDP8nRRRyhzdzt489 ZeYmn9mgFWUlnIQzGIjfPO K6Z25rt3L5 GBLlYBTiDXI3mVM2zQ4dtZ lnbjogbGVmdDsgdmVydGlj TElvKTjaE295MCBbcTgvTf BheWVyOjwv dGQ+RT22yp01S5MrCkmtAx e9YPQaKCX1rJQ9hI9lWKQr ORzsh6U2fJC0X0AsgdFoeo 0vy0ktAQNh ZTog (more content not included)... Normal [facility] Operative Reporton 3 Operative Report Patient: AUDREY DONALD L Age: 31 years Sex: Male : 1990 Associated Diagnoses: None Author: Shirley Murrell MD Procedure Operative Information Details: Date/ Time: 05/23/2022 10:00:00. Pre-Op Dx: Kidney stone (VUO27-LR N20.0, Billing Diagnosis, Medical), Foreign Body in [...] including serum labs and 24-hour urine . [facility] Comment on above: Result Comment: Elec tronically Signed By: Shirley Murrell MD\.br\Date and Time Signed: 05/27/22 17:07 EST Consent for Procedure/Surger yon 05-26-2022 Consent for Procedure/Surgery [id number]#1.0 0CD:127 [facility] IntraOperative Documentson 0 05-26-2022 IntraOperative Documents [id number]#1.0 0CD:127 [facility] Formson 05-24-2022 Forms [id number]#1.0 0CD:127 [facility] Consent for Treatmenton 05-02 Consent for Treatment [id number]#1.0 0CD:127 Normal [facility] Main OR Intraoperative Recor don 05-23-2022 Main OR Intraoperative Record IntraOp Document Type FTURO Summary Primary Physician: Shirley Murrell MD Finalized Date/Time: 05/23/22 10:14:49 Pt. Name: ETHAN DONALD Hannah Yoon/Sex: 1990 Male Med Rec #: [id number] Physician: Shirley Murrell MD Financial #: [id number] Pt. Type: O Room/Bed: / Admit/Disch: 05/23/22 [...] Nereida Cline Role Performed Surgeon - Primary Electronic Tester - Primary Scrub - Primary Time In 05/23/22 10:05:00 05/23/22 10:05:00 05/23/22 10:05:00 Time Out 05/23/22 10:21:00 05/23/22 10:21:00 05/23/22 10:21:00 Procedure CYSTOSCOPY LOCAL WITH CYSTOSCOPY LOCAL WITH CYSTOSCOPY LOCAL WITH STENT REMOVAL(Left) STENT REMOVAL(Left) STENT REMOVAL(Left) Comments Last Modified By: Yumi RN, CNOR, Yumi RN, MICHELLEOR, Yumi RN, MICHELLEOR, Marlyn 05/23/22 Marlyn 05/23/22 Marlyn 05/23/22 10:14:33 10:14:33 10:14:33 Surgical Procedures FTURO Entry 1 Procedure Description Procedure CYSTOSCOPY LOCAL WITH Modifiers Left STENT REMOVAL Surgeon Description CYSTOSCOPY LEFT STENT REMOVAL Primary Procedure Yes Primary Surgeon Shirley Murrell MD Start 05/23/22 10:11:00 Stop 05/23/22 10:16:00 Anesthesia Type Local Surgical Service Urology Wound Class 2 - Clean-Contaminated Last Modified By: NICOEL Eason RN, Ruthann 05/23/22 10:14:34 General Case [...] Eason RN, Ruthann 05/23/22 10:14 Normal [facility] Main OR Preoperative Recordo n 05-23-2022 Main OR Preoperative Record Holding Area Document Type FTURO Summary Primary Physician: Shirley Murrell MD Finalized Date/Time: 05/23/22 10:11:23 Pt. Name: ETHAN DONALD Hannah Shook./Sex: 1990 Male Med Rec #: [id number] Physician: Shirley Murrell MD Financial #: [id number] Pt. Type: O Room/Bed: / Admit/Disch: 05/23/22 [...] Comment: difficulty voiding, not Skin Integrity Intact, [place], Warm, & feeling empty, pain in Dry [...] NICOLE Eason RN, Ruthann 05/23/22 10:11 Normal [facility] Insurance Correspondence Off iceon 05-17-2022 Insurance Correspondence Office [id number]#1. 00CD:127 Normal [facility] ED Note-Physicianon 05-14-19 ED Note-Physician [id number]#1.0 0CD:127 [facility] RAD - CT Reporton 05-14-2022 RAD - CT Report [id number]#1. 00CD:127 Normal [facility] RAD - CT Report [id number]#1. 00CD:127 Normal [facility] RAD - MISCon 05-14-2022 RAD - MISC [id number]#1. 00CD:127 Normal [facility] RAD - MISC [id number]#1. 00CD:127 Normal [facility] RAD - MISC [id number]#1. 00CD:127 Normal [facility] RAD - Ultrasound Reporton RAD - Ultrasound Report [id number]#1. 00CD:127 Normal [facility] AMYLASEon 05-12-2022 Amylase [Catalytic activity/Vol] 39 U/L Normal 25-115 [facility] Comment on above: Performed By: #### E RUR #### [facility] [address] [place] [address] Dr. Pratibha Stevenson CBC AUTO DIFFon 05-12-2022 BASO # 0.0 103/ul Normal 0.0-0.1 [facility] Comment on above: Performed By: #### L ACT #### [facility] [address] [place] [address] Dr. Pratibha Stevenson Basophils/100 WBC (Bld) 0.2 % Normal 0.2-2.0 [facility] Comment on above: Performed By: #### L ACT #### [facility] [address] [place] [address] Dr. Pratibha Stevenson EO # 0.0 103/ul Normal 0.0-0.7 [facility] Comment on above: Performed By: #### L ACT #### [facility] [address] [place] [address] Dr. Pratibha Stevenson Eosinophils/100 WBC (Bld) 0.0 % Critically low 0.9-7.0 [facility] Comment on above: Performed By: #### L ACT #### [facility] [address] [place] [address] Dr. Pratibha Stevenson Erythrocyte distribution width (RBC) [Ratio] 11.7 % Normal 11.0-15.0 [facility] Comment on above: Performed By: #### L ACT #### [facility] [address] [place] [address] Dr. Pratibha Stevenson Hematocrit (Bld) [Volume fraction] 43.0 % Normal 42.0-54.0 [facility] Comment on above: Performed By: #### L ACT #### [facility] [address] [place] [address] Dr. Pratibha Stevenson Hemoglobin (Bld) [Mass/Vol] 13.9 g/dL Critically low 14.0-18.0 [facility] Comment on above: Performed By: #### L ACT #### [facility] [address] [place] [address] Dr. Pratibha Stevenson IG # 0.03 10e3/ul Normal 0.00-0.03 [facility] Comment on above: Performed By: #### L ACT #### [facility] [address] [place] [address] Dr. Pratibha Stevenson IG % 0.3 % Normal 0.0-0.5 [facility] Comment on above: Performed By: #### L ACT #### [facility] [address] [place] [address] Dr. Pratibha Stevenson LYMPH # 0.8 103/ul Critically low 1.2-3.[address] [facility] Comment on above: Performed By: #### L ACT #### [facility] [address] [place] [address] Dr. Pratibha Stevenson Lymphocytes/100 WBC (Bld) 8.6 % Critically low 20.5-60.0 [facility] Comment on above: Performed By: #### L ACT #### [facility] [address] [place] [address] Dr. Pratibha Stevenson MANUAL DIFF REQ NO Normal [facility] Comment on above: Performed By: #### L ACT #### [facility] [address] [place] [address] Dr. Pratibha Stevenson MCH (RBC) [Entitic mass] 31.0 pg Normal 25.9-34.0 [facility] Comment on above: Performed By: #### L ACT #### [facility] [address] [place] [address] Dr. Pratibha Stevenson MCHC (RBC) [Mass/Vol] 32.3 g/dL Normal 29.9-35.2 [facility] Comment on above: Performed By: #### L ACT #### [facility] [address] [place] [address] Dr. Pratibha Stevenson MCV (RBC) [Entitic vol] 96.0 fL Critically high 80.0-94.0 [facility] Comment on above: Performed By: #### L ACT #### [facility] [address] [place] [address] Dr. Pratibha Stevenson MONO # 0.4 103/ul Normal 0.3-0.8 [facility] Comment on above: Performed By: #### L ACT #### [facility] [address] [place] [address] Dr. Pratibha Stevenson Monocytes/100 WBC (Bld) 4.5 % Normal 1.7-12.0 [facility] Comment on above: Performed By: #### L ACT #### [facility] [address] [place] [address] Dr. Pratibha Stevenson NEUT # 8.4 103/ul Critically high 1.4-6.5 [facility] Comment on above: Performed By: #### L ACT #### [facility] [address] [place] [address] Dr. Pratibha Stevenson Neutrophils/100 WBC (Bld) 86.4 % Critically high 43.0-75.0 [facility] Comment on above: Performed By: #### L ACT #### [facility] [address] [place] [address] Dr. Pratibha Stevenson Platelet mean volume (Bld) [Entitic vol] 10.6 fL Normal 9.5-13.5 [facility] Comment on above: Performed By: #### L ACT #### [facility] [address] [place] [address] Dr. Pratibha Stevenson PLT 227 103/ul Normal 150-450 [facility] Comment on above: Performed By: #### L ACT #### [facility] [address] [place] [address] Dr. Pratibha Stevenson RBC 4.48 106/ul Critically low 4.70-6.10 [facility] Comment on above: Performed By: #### L ACT #### [facility] [address] [place] [address] Dr. Pratibha Stevenson WBC 9.7 103/ul Normal 4.0-11.0 [facility] Comment on above: Performed By: #### L ACT #### [facility] [address] [place] [address] Dr. Pratibha Stevenson Consent for Procedure/Surger yon 05-12-2022 Consent for Procedure/Surgery [id number]#1.0 0CD:127 Normal [facility] LIPASEon 05-12-2022 Lipase [Catalytic activity/Vol] 110.0 U/L Normal 73.0-393.0 [facility] Comment on above: Performed By: #### E RUR #### [facility] [address] [place] [address] Dr. Pratibha Stevenson Operative Reporton 3 Operative Report [id number]#1.0 0CD:127 Normal [facility] Operative Report [id number]#1.0 0CD:127 Normal [facility] Comment on above: Other Comment: SAMMI TAY PROF 14(COMP METB)on 023 Albumin [Mass/Vol] 3.3 g/dL Critically low 3.4-5.0 [facility] Comment on above: Performed By: #### E RUR #### [facility] [address] [place] [address] Dr. Pratibha Stevenson Albumin/Globulin [Mass ratio] 1.2 {ratio} Normal [facility] Comment on above: Performed By: #### E RUR #### [facility] [address] [place] [address] Dr. Pratibha Stevenson ALP [Catalytic activity/Vol] 68 U/L Normal 46-116 [facility] Comment on above: Performed By: #### E RUR #### [facility] [address] [place] [address] Dr. Pratibha Stevenson ALT [Catalytic activity/Vol] 27 U/L Normal 16-63 [facility] Comment on above: Performed By: #### E RUR #### [facility] [address] [place] [address] Dr. Pratibha Stevenson Anion gap [Moles/Vol] 10.4 mmol/L Normal [facility] Comment on above: Performed By: #### E RUR #### [facility] [address] [place] [address] Dr. Pratibha Stevenson AST [Catalytic activity/Vol] 25 U/L Normal 15-37 [facility] Comment on above: Performed By: #### E RUR #### [facility] [address] [address] [address] Pratibha Stevenson Bilirubin [Mass/Vol] 0.5 mg/dL Normal 0.2-1.0 [facility] Comment on above: Performed By: #### E RUR #### [facility] [address] [place] [address] Dr. Pratibha Stevenson Calcium [Mass/Vol] 8.8 mg/dL Normal 8.5-10.1 [facility] Comment on above: Performed By: #### E RUR #### [facility] [address] [place] [address] Dr. Pratibha Stevenson Chloride [Moles/Vol] 105 mmol/L Normal 98-107 [facility] Comment on above: Performed By: #### E RUR #### [facility] [address] [place] [address] Dr. Pratibha Stevenson CO2 [Moles/Vol] 26.5 mmol/L Normal 21.0-32.0 [facility] Comment on above: Performed By: #### E RUR #### [facility] [address] [place] [address] Dr. Pratibha Stevenson Creatinine [Mass/Vol] 1.15 mg/dL Normal 0.70-1.30 [facility] Comment on above: Performed By: #### E RUR #### [facility] [address] [place] [address] Dr. Pratibha Stevenson EGFR-AF HAITIAN >60 Normal >=60 [facility] Comment on above: Performed By: #### E RUR #### [facility] [address] [place] [address] Dr. Pratibha Stevenson EGFR-NON AF HAITIAN >60 Normal >=60 [facility] Comment on above: Performed By: #### E RUR #### [facility] [address] [place] [address] Dr. Pratibha Stevenson Globulin (S) [Mass/Vol] 2.7 g/dL Normal [facility] Comment on above: Performed By: #### E RUR #### [facility] [address] [place] [address] Dr. Pratibha Stevenson Glucose [Mass/Vol] 119 mg/dL Critically high 74-106 T [facility] Comment on above: Performed By: #### E RUR #### [facility] [address] [place] [address] Dr. Pratibha Stevenson Potassium [Moles/Vol] 3.9 mmol/L Normal 3.5-5.1 [facility] Comment on above: Performed By: #### E RUR #### [facility] [address] [place] [address] Dr. Pratibha Stevenson Protein [Mass/Vol] 6.0 g/dL Critically low 6.4-8.2 Th [facility] Comment on above: Performed By: #### E RUR #### [facility] [address] [place] [address] Dr. Pratibha Stevenson Sodium [Moles/Vol] 138 mmol/L Normal 136-145 [facility] Comment on above: Performed By: #### E RUR #### [facility] [address] [place] [address] Dr. Pratibha Stevenson Urea nitrogen [Mass/Vol] 7.0 mg/dL Normal 7.0-18.0 [facility] Comment on above: Performed By: #### E RUR #### [facility] [address] [place] [address] Dr. Pratibha Stevenson Urea nitrogen/Creatinine [Mass ratio] 6.1 mg/mg Normal [facility] Comment on above: Performed By: #### E RUR #### [facility] [address] [place] [address] Dr. Pratibha Stevenson XR KUB 1 VIEWon [...] ROSALINO SAID Date: 2022-05-12 06:43 Normal [facility] AMYLASEon 05-11-2022 Amylase [Catalytic activity/Vol] 52 U/L Normal 25-115 [facility] Comment on above: Performed By: #### C MP, GREG, LIPA #### [facility] [address] [place] [address] Dr. Pratibha Stevenson CBC AUTO DIFFon 05-11-2022 BASO # 0.0 103/ul Normal 0.0-0.1 [facility] Comment on above: Performed By: #### C BC #### [facility] [address] [place] [address] Dr. Pratibha Stevenson Basophils/100 WBC (Bld) 0.6 % Normal 0.2-2.0 [facility] Comment on above: Performed By: #### C BC #### [facility] [address] [place] [address] Dr. Pratibha Stevenson EO # 0.2 103/ul Normal 0.0-0.7 [facility] Comment on above: Performed By: #### C BC #### [facility] [address] [place] [address] Dr. Pratibha Stevenson Eosinophils/100 WBC (Bld) 2.3 % Normal 0.9-7.0 [facility] Comment on above: Performed By: #### C BC #### [facility] [address] [place] [address] Dr. Pratibha Stevenson Erythrocyte distribution width (RBC) [Ratio] 11.7 % Normal 11.0-15.0 [facility] Comment on above: Performed By: #### C BC #### [facility] [address] [place] [address] Dr. Pratibha Stevenson Hematocrit (Bld) [Volume fraction] 42.4 % Normal 42.0-54.0 [facility] Comment on above: Performed By: #### C BC #### [facility] [address] [place] [address] Dr. Pratibha Stevenson Hemoglobin (Bld) [Mass/Vol] 14.3 g/dL Normal 14.0-18.0 [facility] Comment on above: Performed By: #### C BC #### [facility] [address] [place] [address] Dr. Pratibha Stevenson IG # 0.01 10e3/ul Normal 0.00-0.03 [facility] Comment on above: Performed By: #### C BC #### [facility] [address] [place] [address] Dr. Pratibha Stevenson IG % 0.2 % Normal 0.0-0.5 [facility] Comment on above: Performed By: #### C BC #### [facility] [address] [place] [address] Dr. Pratibha Stevenson LYMPH # 2.8 103/ul Normal 1.2-3.8 [facility] Comment on above: Performed By: #### C BC #### [facility] [address] [place] [address] Dr. Pratibha Stevenson Lymphocytes/100 WBC (Bld) 41.8 % Normal 20.5-60.0 [facility] Comment on above: Performed By: #### C BC #### [facility] [address] [place] [address] Dr. Pratibha Stevenson MANUAL DIFF REQ NO Normal [facility] Comment on above: Performed By: #### C BC #### [facility] [address] [place] [address] Dr. Pratibha Stevenson MCH (RBC) [Entitic mass] 31.0 pg Normal 25.9-34.0 [facility] Comment on above: Performed By: #### C BC #### [facility] [address] [place] [address] Dr. Pratibha Stevenson MCHC (RBC) [Mass/Vol] 33.7 g/dL Normal 29.9-35.2 [facility] Comment on above: Performed By: #### C BC #### [facility] [address] [place] [address] Dr. Pratibha Stevenson MCV (RBC) [Entitic vol] 92.0 fL Normal 80.0-94.0 [facility] Comment on above: Performed By: #### C BC #### [facility] [address] [place] [address] Dr. Pratibha Stevensno MONO # 0.5 103/ul Normal 0.3-0.8 [facility] Comment on above: Performed By: #### C BC #### [facility] [address] [place] [address] Dr. Pratibha Stevenson Monocytes/100 WBC (Bld) 7.9 % Normal 1.7-12.0 [facility] Comment on above: Performed By: #### C BC #### [facility] [address] [place] [address] Dr. Pratibha Stevenson NEUT # 3.1 103/ul Normal 1.4-6.5 [facility] Comment on above: Performed By: #### C BC #### [facility] [address] [place] [address] Dr. Pratibha Stevenson Neutrophils/100 WBC (Bld) 47.2 % Normal 43.0-75.0 [facility] Comment on above: Performed By: #### C BC #### [facility] [address] [place] [address] Dr. Pratibha Stevenson Platelet mean volume (Bld) [Entitic vol] 10.7 fL Normal 9.5-13.5 [facility] Comment on above: Performed By: #### C BC #### [facility] [address] [place] [address] Dr. Pratibha Stevenson PLT 216 103/ul Normal 150-450 [facility] Comment on above: Performed By: #### C BC #### [facility] [address] [place] [address] Dr. Pratibha Stevenson RBC 4.61 106/ul Critically low 4.70-6.10 [facility] Comment on above: Performed By: #### C BC #### [facility] [address] [place] [address] Dr. Pratibha Stevenson WBC 6.6 103/ul Normal 4.0-11.0 [facility] Comment on above: Performed By: #### C BC #### [facility] [address], [place] [address] ABD/PELVIS WO CONon [...] SAUMYA MARSH Date: 2022-05-11 08:31 Normal The [facility] LIPASEon 05-11-2022 Lipase [Catalytic activity/Vol] 241.0 U/L Normal 73.0-393.0 The [facility] Comment on above: Performed By: #### C MP, GREG, LIPA #### [facility] [address] [address] [address] Pratibha Stevenson PROF 14(COMP METB)on 023 Albumin [Mass/Vol] 3.6 g/dL Normal 3.4-5.0 [facility] Comment on above: Performed By: #### C MP, GREG, LIPA #### [facility] [address] [address] [address] Pratibha Stevenson Albumin/Globulin [Mass ratio] 1.2 {ratio} Normal [facility] Comment on above: Performed By: #### C MP, GREG, LIPA #### [facility] [address] [address] [address] Pratibha Stevenson ALP [Catalytic activity/Vol] 75 U/L Normal 46-116 [facility] Comment on above: Performed By: #### C MP, GREG, LIPA #### [facility] [address] [place] [address] Dr. Pratibha Stevenson ALT [Catalytic activity/Vol] 28 U/L Normal 16-63 [facility] Comment on above: Performed By: #### C MP, GREG, LIPA #### [facility] [address] [address] [address] Pratibha Stevenson Anion gap [Moles/Vol] 9.7 mmol/L Normal [facility] Comment on above: Performed By: #### C MP, GREG, LIPA #### [facility] [address] [place] [address] Dr. Pratibha Stevenson AST [Catalytic activity/Vol] 19 U/L Normal 15-37 [facility] Comment on above: Performed By: #### C MP, GREG, LIPA #### [facility] [address] [address] [address] Pratibha Stevenson Bilirubin [Mass/Vol] 0.5 mg/dL Normal 0.2-1.0 [facility] Comment on above: Performed By: #### C MP, GREG, LIPA #### [facility] [address] [address] [address] Pratibha Stevenson Calcium [Mass/Vol] 9.1 mg/dL Normal 8.5-10.[address] [facility] Comment on above: Performed By: #### C MP, GREG, LIPA #### [facility] [address] [address] [address] Pratibha Stevenson Chloride [Moles/Vol] 104 mmol/L Normal 98-107 [facility] Comment on above: Performed By: #### C MP, GREG, LIPA #### [facility] [address] [place] [address] Dr. Pratibha Stevenson CO2 [Moles/Vol] 29.3 mmol/L Normal 21.0-32.0 [facility] Comment on above: Performed By: #### C WENDY, GREG, LIPA #### [facility] [address] [place] [address] Dr. Pratibha Stevenson Creatinine [Mass/Vol] 1.21 mg/dL Normal 0.70-1.30 [facility] Comment on above: Performed By: #### C WENDY GREG, LIPA #### [facility] [address] [place] [address] Dr. Pratibha Stevenson EGFR-AF HAITIAN >60 Normal >=60 [facility] Comment on above: Performed By: #### C WENDY GREG, LIPA #### [facility] [address] [place] [address] Dr. Pratibha Stevenson EGFR-NON AF HAITIAN >60 Normal >=60 [facility] Comment on above: Performed By: #### C WENDY GREG, LIPA #### [facility] [address] [place] [address] Dr. Pratibha Stevenson Globulin (S) [Mass/Vol] 3.1 g/dL Normal [facility] Comment on above: Performed By: #### C MP, GREG, LIPA #### [facility] [address] [place] [address] Dr. Pratibha Stevenson Glucose [Mass/Vol] 88 mg/dL Normal 74-[address] [facility] Comment on above: Performed By: #### C MP, GREG, LIPA #### [facility] [address] [place] [address] Dr. Pratibha Stevenson Potassium [Moles/Vol] 4.0 mmol/L Normal 3.5-5.1 [facility] Comment on above: Performed By: #### C GREG NGUYEN LIPA #### [facility] [address] [address] [address] Pratibha Stevenson Protein [Mass/Vol] 6.7 g/dL Normal 6.4-8.[address] [facility] Comment on above: Performed By: #### C GREG NGUYEN LIPA #### [facility] [address] [address] [address] Pratibha Stevenson Sodium [Moles/Vol] 139 mmol/L Normal 136-[address] [facility] Comment on above: Performed By: #### C GREG NGUYEN LIPA #### [facility] [address] [address] [address] Pratibha Stevenson Urea nitrogen [Mass/Vol] 8.0 mg/dL Normal 7.0-18.0 [facility] Comment on above: Performed By: #### C GREG NGUYEN LIPA #### [facility] [address] [place] [address] Dr. Pratibha Stevenson Urea nitrogen/Creatinine [Mass ratio] 6.6 mg/mg Normal [facility] Comment on above: Performed By: #### C GREG NGUYEN LIPA #### [facility] [address] [place] [address] Dr. Pratibha Stevenson XR KUB 1 VIEWon [...] MAUREEN GARDNER Date: 2022-05-11 06:36 Normal The [facility] AMYLASEon 05-10-2022 Amylase [Catalytic activity/Vol] 41 U/L Normal 25-115 The [facility] Comment on above: Performed By: #### L ACT #### [facility] [address] [address] [address] Pratibha Stevenson CBC AUTO DIFFon 05-10-2022 BASO # 0.0 103/ul Normal 0.0-0.1 The [facility] Comment on above: Performed By: #### L ACT #### [facility] [address] [place] [address] Dr. Pratibha Stevenson Basophils/100 WBC (Bld) 0.7 % Normal 0.2-2.0 The [facility] Comment on above: Performed By: #### L ACT #### [facility] [address] [place] [address] Dr. Pratibha Stevenson EO # 0.2 103/ul Normal 0.0-0.7 The [facility] Comment on above: Performed By: #### L ACT #### [facility] [address] [place] [address] Dr. Pratibha Stevenson Eosinophils/100 WBC (Bld) 2.8 % Normal 0.9-7.0 The [facility] Comment on above: Performed By: #### L ACT #### [facility] [address] [place] [address] Dr. Pratibha Stevenson Erythrocyte distribution width (RBC) [Ratio] 11.8 % Normal 11.0-15.0 The [facility] Comment on above: Performed By: #### L ACT #### [facility] [address] [place] [address] Dr. Pratibha Stevenson Hematocrit (Bld) [Volume fraction] 38.8 % Critically low 42.0-54.0 The [facility] Comment on above: Performed By: #### L ACT #### [facility] [address] [place] [address] Dr. Pratibha Stevenson Hemoglobin (Bld) [Mass/Vol] 13.3 g/dL Critically low 14.0-18.0 The [facility] Comment on above: Performed By: #### L ACT #### [facility] [address] [place] [address] Dr. Pratibha Stevenson IG # 0.02 10e3/ul Normal 0.00-0.03 The [facility] Comment on above: Performed By: #### L ACT #### [facility] [address] [place] [address] Dr. Pratibha Stevenson IG % 0.3 % Normal 0.0-0.5 The [facility] Comment on above: Performed By: #### L ACT #### [facility] [address] [place] [address] Dr. Pratibha Stevenson LYMPH # 2.1 103/ul Normal 1.2-3.8 The [facility] Comment on above: Performed By: #### L ACT #### [facility] [address] [place] [address] Dr. Pratibha Stevenson Lymphocytes/100 WBC (Bld) 35.3 % Normal 20.5-60.0 The [facility] Comment on above: Performed By: #### L ACT #### [facility] [address] [place] [address] Dr. Pratibha Stevenson MANUAL DIFF REQ NO Normal [facility] Comment on above: Performed By: #### L ACT #### [facility] [address] [place] [address] Dr. Pratibha Stevenson MCH (RBC) [Entitic mass] 30.7 pg Normal 25.9-34.0 The [facility] Comment on above: Performed By: #### L ACT #### [facility] [address] [place] [address] Dr. Pratibha Stevenson MCHC (RBC) [Mass/Vol] 34.3 g/dL Normal 29.9-35.2 The [facility] Comment on above: Performed By: #### L ACT #### [facility] [address] [place] [address] Dr. Pratibha Stevenson MCV (RBC) [Entitic vol] 89.6 fL Normal 80.0-94.0 The [facility] Comment on above: Performed By: #### L ACT #### [facility] [address] [address] [address] Pratibha Stevenson MONO # 0.4 103/ul Normal 0.3-0.8 The [facility] Comment on above: Performed By: #### L ACT #### [facility] [address] [address] [address] Pratibha Stevenson Monocytes/100 WBC (Bld) 7.4 % Normal 1.7-12.0 The [facility] Comment on above: Performed By: #### L ACT #### [facility] [address] [address] [address] Pratibha Stevenson NEUT # 3.1 103/ul Normal 1.4-6.5 [facility] Comment on above: Performed By: #### L ACT #### [facility] [address] [address] [address] Pratibha Stevenson Neutrophils/100 WBC (Bld) 53.5 % Normal 43.0-75.0 The [facility] Comment on above: Performed By: #### L ACT #### [facility] [address] [address] [address] Pratibha Stevenson Platelet mean volume (Bld) [Entitic vol] 10.2 fL Normal 9.5-13.5 The [facility] Comment on above: Performed By: #### L ACT #### [facility] [address] [address] [address] Pratibha Stevenson PLT 197 103/ul Normal 150-450 [facility] Comment on above: Performed By: #### L ACT #### [facility] [address] [id number] Pratibha Stevenson RBC 4.33 106/ul Critically low 4.70-6.10 The [facility] Comment on above: Performed By: #### L ACT #### [facility] [address] [address] [address] Pratibha Stevenson WBC 5.8 103/ul Normal 4.0-11.0 [facility] Comment on above: Performed By: #### L ACT #### [facility] [address] [place] [address] Dr. Pratibha Stevenson LIPASEon 05-10-2022 Lipase [Catalytic activity/Vol] 134.0 U/L Normal 73.0-393.0 [facility] Comment on above: Performed By: #### L ACT #### [facility] [address] [place] [address] Dr. Pratibha Stevenson PROF 14(COMP METB)on 023 Albumin [Mass/Vol] 3.1 g/dL Critically low 3.4-5.0 Th e [facility] Comment on above: Performed By: #### L ACT #### [facility] [address] [place] [address] Dr. Pratibha Stevenson Albumin/Globulin [Mass ratio] 1.1 {ratio} Normal [facility] Comment on above: Performed By: #### L ACT #### [facility] [address] [place] [address] Dr. Pratibha Stevenson ALP [Catalytic activity/Vol] 68 U/L Normal 46-116 The [facility] Comment on above: Performed By: #### L ACT #### [facility] [address] [place] [address] Dr. Pratibha Stevenson ALT [Catalytic activity/Vol] 25 U/L Normal 16-63 [facility] Comment on above: Performed By: #### L ACT #### [facility] [address] [place] [address] Dr. Pratibha Stevenson Anion gap [Moles/Vol] 11.1 mmol/L Normal [facility] Comment on above: Performed By: #### L ACT #### [facility] [address] [place] [address] Dr. Pratibha Stevenson AST [Catalytic activity/Vol] 16 U/L Normal 15-37 [facility] Comment on above: Performed By: #### L ACT #### [facility] [address] [place] [address] Dr. Pratibha Stevenson Bilirubin [Mass/Vol] 0.5 mg/dL Normal 0.2-1.0 [facility] Comment on above: Performed By: #### L ACT #### [facility] [address] [address] [address] Pratibha Stevenson Calcium [Mass/Vol] 8.6 mg/dL Normal 8.5-10.1 [facility] Comment on above: Performed By: #### L ACT #### [facility] [address] [address] [address] Pratibha Stevenson Chloride [Moles/Vol] 105 mmol/L Normal 98-107 The [facility] Comment on above: Performed By: #### L ACT #### [facility] [address] [place] [address] Dr. Pratibha Stevenson CO2 [Moles/Vol] 26.6 mmol/L Normal 21.0-32.0 [facility] Comment on above: Performed By: #### L ACT #### [facility] [address] [place] [address] Dr. Pratibha Stevenson Creatinine [Mass/Vol] 1.12 mg/dL Normal 0.70-1.30 [facility] Comment on above: Performed By: #### L ACT #### [facility] [address] [place] [address] Dr. Pratibha Stevenson EGFR-AF HAITIAN >60 Normal >=60 [facility] Comment on above: Performed By: #### L ACT #### [facility] [address] [place] [address] Dr. Pratibha Stevenson EGFR-NON AF HAITIAN >60 Normal >=60 The [facility] Comment on above: Performed By: #### L ACT #### [facility] [address] [place] [address] Dr. Pratibha Stevenson Globulin (S) [Mass/Vol] 2.7 g/dL Normal The [facility] Comment on above: Performed By: #### L ACT #### [facility] [address] [address] [address] Pratibha Stevenson Glucose [Mass/Vol] 86 mg/dL Normal 74-[address] [facility] Comment on above: Performed By: #### L ACT #### [facility] [address], [place] [address] Dr. Pratibha Stevenson Potassium [Moles/Vol] 3.7 mmol/L Normal 3.5-5.1 [facility] Comment on above: Performed By: #### L ACT #### [facility] [address], [place] [address] Dr. Pratibha Stevenson Protein [Mass/Vol] 5.8 g/dL Critically low 6.4-8.2 Th [facility] Comment on above: Performed By: #### L ACT #### [facility] [address], [place] [address] Dr. Pratibha Stevenson Sodium [Moles/Vol] 139 mmol/L Normal 136-145 [facility] Comment on above: Performed By: #### L ACT #### [facility] [address] [address] [address] Pratibha Stevenson Urea nitrogen [Mass/Vol] 12.0 mg/dL Normal 7.0-18.0 [facility] Comment on above: Performed By: #### L ACT #### [facility] [address] [address] [address] Pratibha Stevenson Urea nitrogen/Creatinine [Mass ratio] 10.7 mg/mg Normal [facility] Comment on above: Performed By: #### L ACT #### [facility] [address], [place] [address] Dr. Pratibha Stevenson US KIDNEYSon 05-10-2022 US [...] SAUMYA MARSH Date: 2022-05-10 08:37 Normal The [facility] XR KUB 1 VIEWon 05-10-2022 XR [...] MAUREEN GARDNER Date: 2022-05-10 06:55 Normal The [facility] AMYLASEon 05-09-2022 Amylase [Catalytic activity/Vol] 44 U/L Normal 25-115 The [facility] Comment on above: Performed By: #### C BC #### [facility] [address] [address] [address] Pratibha Stevenson CBC AUTO DIFFon 05-09-2022 BASO # 0.1 103/ul Normal 0.0-0.1 [facility] Comment on above: Performed By: #### S SCRN, GRASTCX #### [facility] [address] [address] [address] Pratibha Stevenson Basophils/100 WBC (Bld) 0.9 % Normal 0.2-2.0 [facility] Comment on above: Performed By: #### S SCRN, GRASTCX #### [facility] [address] [address] [address] Pratibha Stevenson EO # 0.2 103/ul Normal 0.0-0.7 [facility] Comment on above: Performed By: #### S JOSE ARMANDO GRASTCX #### [facility] [address] [place] [address] Dr. Pratibha Stevenson Eosinophils/100 WBC (Bld) 2.6 % Normal 0.9-7.0 [facility] Comment on above: Performed By: #### S JOSE ARMANDO GRASTCX #### [facility] [address] [place] [address] Dr. Pratibha Stevenson Erythrocyte distribution width (RBC) [Ratio] 11.9 % Normal 11.0-15.0 [facility] Comment on above: Performed By: #### S JOSE ARMANDO GRASTCX #### [facility] [address] [place] [address] Dr. Pratibha Stevenson Hematocrit (Bld) [Volume fraction] 38.8 % Critically low 42.0-54.0 [facility] Comment on above: Performed By: #### S JOSE ARMANDO GRASTCX #### [facility] [address] [place] [address] Dr. Pratibha Stevenson Hemoglobin (Bld) [Mass/Vol] 13.9 g/dL Critically low 14.0-18.0 [facility] Comment on above: Performed By: #### Ruthann SUÁREZ GRASTCX #### [facility] [address] [place] [address] Dr. Pratibha Stevenson IG # 0.02 10e3/ul Normal 0.00-0.03 [facility] Comment on above: Performed By: #### S JOSE ARMANDO GRASTCX #### [facility] [address] [place] [address] Dr. Pratibha Stevenson IG % 0.4 % Normal 0.0-0.5 [facility] Comment on above: Performed By: #### S JOSE ARMANDO GRASTCX #### [facility] [address] [place] [address] Dr. Pratibha Stevenson LYMPH # 2.0 103/ul Normal 1.2-3.8 [facility] Comment on above: Performed By: #### S JOSE ARMANDO GRASTCX #### [facility] [address] [address] [address] Pratibha Stevenson Lymphocytes/100 WBC (Bld) 34.9 % Normal 20.5-60.0 [facility] Comment on above: Performed By: #### S SCRN, GRASTCX #### [facility] [address] [address] [address] Pratibha Stevenson MANUAL DIFF REQ NO Normal [facility] Comment on above: Performed By: #### S SCRN, GRASTCX #### [facility] [address] [place] [address] Dr. Pratibha Stevenson MCH (RBC) [Entitic mass] 31.0 pg Normal 25.9-34.0 [facility] Comment on above: Performed By: #### S SCRN, GRASTCX #### [facility] [address] [place] [address] Dr. Pratibha Stevenson MCHC (RBC) [Mass/Vol] 35.8 g/dL Critically high 29.9-35.2 The [facility] Comment on above: Performed By: #### S SCRN, GRASTCX #### [facility] [address] [place] [address] Dr. Pratibha Stevenson MCV (RBC) [Entitic vol] 86.6 fL Normal 80.0-94.0 The [facility] Comment on above: Performed By: #### S SCRN, GRASTCX #### [facility] [address] [place] [address] Dr. Pratibha Stevenson MONO # 0.4 103/ul Normal 0.3-0.8 The [facility] Comment on above: Performed By: #### S SCRN, GRASTCX #### [facility] [address] [place] [address] Dr. Pratibha Stevenson Monocytes/100 WBC (Bld) 6.2 % Normal 1.7-12.0 The [facility] Comment on above: Performed By: #### S SCRN, GRASTCX #### [facility] [address] [place] [address] Dr. Pratibha Stevenson NEUT # 3.1 103/ul Normal 1.4-6.5 The [facility] Comment on above: Performed By: #### S JOSE ARMANDO GRASTCX #### [facility] [address] [place] [address] Dr. Pratibha Stevenson Neutrophils/100 WBC (Bld) 55.0 % Normal 43.0-75.0 [facility] Comment on above: Performed By: #### S JOSE ARMANDO GRASTCX #### [facility] [address] [place] [address] Dr. Pratibha Stevenson Platelet mean volume (Bld) [Entitic vol] 9.7 fL Normal 9.5-13.5 The [facility] Comment on above: Performed By: #### S JOSE ARMANDO GRASTCX #### [facility] [address] [place] [address] Dr. Pratibha Stevenson PLT 201 103/ul Normal 150-450 [facility] Comment on above: Performed By: #### S JOSE ARMANDO GRASTCX #### [facility] [address] [place] [address] Dr. Pratibha Stevenson RBC 4.48 106/ul Critically low 4.70-6.10 [facility] Comment on above: Performed By: #### S JOSE ARMANDO GRASTCX #### [facility] [address] [place] [address] Dr. Pratibha Stevenson WBC 5.7 103/ul Normal 4.0-11.0 The [facility] Comment on above: Performed By: #### S JOSE ARMANDO GRASTCX #### [facility] [address] [place] [address] Dr. Pratibha Stevenson CULTURE URINEon 05-09-2022 CULTURE URINE Culture Observations : NO GROWTH. Normal The [facility] Comment on above: Performed By: #### C BC #### [facility] [address] [place] [address] Dr. Pratibha Stevenson LIPASEon 05-09-2022 Lipase [Catalytic activity/Vol] 98.0 U/L Normal 73.0-393.0 [facility] Comment on above: Performed By: #### C BC #### [facility] [address] [place] [address] Dr. Pratibha Stevenson PROF 14(COMP METB)on 023 Albumin [Mass/Vol] 3.2 g/dL Critically low 3.4-5.0 [facility] Comment on above: Performed By: #### C BC #### [facility] [address] [place] [address] Dr. Pratibha Stevenson Albumin/Globulin [Mass ratio] 1.3 {ratio} Normal [facility] Comment on above: Performed By: #### C BC #### [facility] [address] [place] [address] Dr. Pratibha Stevenson ALP [Catalytic activity/Vol] 74 U/L Normal 46-116 [facility] Comment on above: Performed By: #### C BC #### [facility] [address] [place] [address] Dr. Pratibha Stevenson ALT [Catalytic activity/Vol] 25 U/L Normal 16-63 [facility] Comment on above: Performed By: #### C BC #### [facility] [address] [place] [address] Dr. Pratibha Stevenson Anion gap [Moles/Vol] 10.7 mmol/L Normal [facility] Comment on above: Performed By: #### C BC #### [facility] [address] [place] [address] Dr. Pratibha Stevenson AST [Catalytic activity/Vol] 18 U/L Normal 15-37 [facility] Comment on above: Performed By: #### C BC #### [facility] [address] [place] [address] Dr. Pratibha Stevenson Bilirubin [Mass/Vol] 0.7 mg/dL Normal 0.2-1.0 [facility] Comment on above: Performed By: #### C BC #### [facility] [address] [place] [address] Dr. Pratibha Stevenson Calcium [Mass/Vol] 8.5 mg/dL Normal 8.5-10.1 [facility] Comment on above: Performed By: #### C BC #### [facility] [address] [place] [address] Dr. Pratibha Stevenson Chloride [Moles/Vol] 106 mmol/L Normal 98-107 [facility] Comment on above: Performed By: #### C BC #### [facility] [address] [address] [address] Pratibha Stevenson CO2 [Moles/Vol] 27.1 mmol/L Normal 21.0-32.0 [facility] Comment on above: Performed By: #### C BC #### [facility] [address] [address] [address] Pratibha Stevenson Creatinine [Mass/Vol] 1.16 mg/dL Normal 0.70-1.30 [facility] Comment on above: Performed By: #### C BC #### [facility] [address] [place] [address] Dr. Pratibha Stevenson EGFR-AF HAITIAN >60 Normal >=60 [facility] Comment on above: Performed By: #### C BC #### [facility] [address] [place] [address] Dr. Pratibha Stevenson EGFR-NON AF HAITIAN >60 Normal >=60 [facility] Comment on above: Performed By: #### C BC #### [facility] [address] [place] [address] Dr. Pratibha Stevenson Globulin (S) [Mass/Vol] 2.5 g/dL Normal [facility] Comment on above: Performed By: #### C BC #### [facility] [address] [place] [address] Dr. Pratibha Stevenson Glucose [Mass/Vol] 90 mg/dL Normal 74-106 [facility] Comment on above: Performed By: #### C BC #### [facility] [address] [place] [address] Dr. Pratibha Stevenson Potassium [Moles/Vol] 3.8 mmol/L Normal 3.5-5.1 [facility] Comment on above: Performed By: #### C BC #### [facility] [address] [place] [address] Dr. Pratibha Stevenson Protein [Mass/Vol] 5.7 g/dL Critically low 6.4-8.2 [facility] Comment on above: Performed By: #### C BC #### [facility] [address], [place] [address] Dr. Pratibha Stevenson Sodium [Moles/Vol] 140 mmol/L Normal 136-145 [facility] Comment on above: Performed By: #### C BC #### [facility] [address], [place] [address] Dr. Pratibha Stevenson Urea nitrogen [Mass/Vol] 12.0 mg/dL Normal 7.0-18.0 [facility] Comment on above: Performed By: #### C BC #### [facility] [address] [address] [address] Pratibha Stevenson Urea nitrogen/Creatinine [Mass ratio] 10.3 mg/mg Normal [facility] Comment on above: Performed By: #### C BC #### [facility] [address] [address] [address] Pratibha Stevenson XR KUB 1 VIEWon [...] EDIS HERNÁNDEZ Date: 2022-05-09 05:31 Normal [facility] CBC AUTO DIFFon 05-08-2022 BASO # 0.1 103/ul Normal 0.0-0.1 [facility] Comment on above: Performed By: #### C BC #### [facility] [address] [address] [address] Pratibha Stevenson Basophils/100 WBC (Bld) 0.4 % Normal 0.2-2.0 [facility] Comment on above: Performed By: #### C BC #### [facility] [address] [place] [address] Dr. Pratibha Stevenson EO # 0.1 103/ul Normal 0.0-0.7 [facility] Comment on above: Performed By: #### C BC #### [facility] [address] [place] [address] Dr. Pratibha Stevenson Eosinophils/100 WBC (Bld) 1.0 % Normal 0.9-7.0 [facility] Comment on above: Performed By: #### C BC #### [facility] [address] [place] [address] Dr. Pratibha Stevenson Erythrocyte distribution width (RBC) [Ratio] 11.9 % Normal 11.0-15.0 [facility] Comment on above: Performed By: #### C BC #### [facility] [address] [place] [address] Dr. Pratibha Stevenson Hematocrit (Bld) [Volume fraction] 47.4 % Normal 42.0-54.0 [facility] Comment on above: Performed By: #### C BC #### [facility] [address] [place] [address] Dr. Pratibha Stevenson Hemoglobin (Bld) [Mass/Vol] 17.3 g/dL Normal 14.0-18.0 [facility] Comment on above: Performed By: #### C BC #### [facility] [address] [place] [address] Dr. Pratibha Stevenson IG # 0.05 10e3/ul Critically high 0.00-0.03 [facility] Comment on above: Performed By: #### C BC #### [facility] [address] [place] [address] Dr. Pratibha Stevenson IG % 0.4 % Normal 0.0-0.5 [facility] Comment on above: Performed By: #### C BC #### [facility] [address] [place] [address] Dr. Pratibha Stevenson LYMPH # 2.4 103/ul Normal 1.2-3.8 [facility] Comment on above: Performed By: #### C BC #### [facility] [address] [place] [address] Dr. Pratibha Stevenson Lymphocytes/100 WBC (Bld) 18.6 % Critically low 20.5-60.0 [facility] Comment on above: Performed By: #### C BC #### [facility] [address] [place] [address] Dr. Pratibha Stevenson MANUAL DIFF REQ NO Normal [facility] Comment on above: Performed By: #### C BC #### [facility] [address] [address] [address] Pratibha Stevenson MCH (RBC) [Entitic mass] 31.3 pg Normal 25.9-34.0 [facility] Comment on above: Performed By: #### C BC #### [facility] [address] [place] [address] Dr. Pratibha Stevenson MCHC (RBC) [Mass/Vol] 36.5 g/dL Critically high 29.9-35.2 [facility] Comment on above: Performed By: #### C BC #### [facility] [address] [place] [address] Dr. Pratibha Stevenson MCV (RBC) [Entitic vol] 85.7 fL Normal 80.0-94.0 [facility] Comment on above: Performed By: #### C BC #### [facility] [address] [place] [address] Dr. Pratibha Stevenson MONO # 0.6 103/ul Normal 0.3-0.8 [facility] Comment on above: Performed By: #### C BC #### [facility] [address] [place] [address] Dr. Pratibha Stevenson Monocytes/100 WBC (Bld) 5.0 % Normal 1.7-12.0 [facility] Comment on above: Performed By: #### C BC #### [facility] [address] [place] [address] Dr. Pratibha Stevenson NEUT # 9.6 103/ul Critically high 1.4-6.5 [facility] Comment on above: Performed By: #### C BC #### [facility] [address] [place] [address] Dr. Pratibha Stevenson Neutrophils/100 WBC (Bld) 74.6 % Normal 43.0-75.0 [facility] Comment on above: Performed By: #### C BC #### [facility] [address] [place] [address] Dr. Pratibha Stevenson Platelet mean volume (Bld) [Entitic vol] 9.6 fL Normal 9.5-13.5 [facility] Comment on above: Performed By: #### C BC #### [facility] [address] [place] [address] Dr. Pratibha Stevenson PLT 286 103/ul Normal 150-450 [facility] Comment on above: Performed By: #### C BC #### [facility] [address] [place] [address] Dr. Pratibha Stevenson RBC 5.53 106/ul Normal 4.70-6.10 [facility] Comment on above: Performed By: #### C BC #### [facility] [address] [place] [address] Dr. Pratibha Stevenson WBC 12.8 103/ul Critically high 4.0-11.0 [facility] Comment on above: Performed By: #### C BC #### [facility] [address] [place] [address] ABD/PELV W CONon [...] CHAGO ROLLINS Date: 2022-05-08 18:37 Normal [facility]on SARS-CoV-2 (COVID-19) RNA MARIKA+probe Ql (Unsp spec) Not detected Normal NOT DETECTED [facility] Comment on above: Result Comment: When [...] for this test is supported by the [place] of [employer] and Human Service's declaration that [...] used). Performed By: #### C BC #### [facility] [address] [place] [address] Dr. Pratibha RESENDIZ URINE PROFILEon 3 Bilirubin Ql (U) SMALL Abnormal NEGATIVE [facility] Comment on above: Performed By: #### C BC #### [facility] [address] [place] [address] Dr. Pratibha Stevenson Clarity (U) CLEAR Normal CLEAR [facility] Comment on above: Performed By: #### C BC #### [facility] [address] [place] [address] Dr. Pratibha Stevenson Color (U) DK. ORANGE Abnormal YELLOW [facility] Comment on above: Performed By: #### C BC #### [facility] [address] [place] [address] Dr. Pratibha RIOS A micrscopic examination will be performed if indicated. Normal [facility] Comment on above: Performed By: #### C BC #### [facility] [address] [place] [address] Dr. Pratibha Stevenson Glucose Ql (U) Negative Normal NEGATIVE The [facility] Comment on above: Performed By: #### C BC #### [facility] [address] [place] [address] Dr. Pratibha Stevenson Hemoglobin Ql (U) LARGE Abnormal NEGATIVE [facility] Comment on above: Performed By: #### C BC #### [facility] [address] [place] [address] Dr. Pratibha Stevenson Ketones Ql (U) TRACE Abnormal NEGATIVE The [facility] Comment on above: Performed By: #### C BC #### [facility] [address] [place] [address] Dr. Pratibha Stevenson LEUKOCYTES Negative Normal NEGATIVE [facility] Comment on above: Performed By: #### C BC #### [facility] [address] [place] [address] Dr. Pratibha Stevenson Nitrite Ql (U) Negative Normal NEGATIVE The [facility] Comment on above: Performed By: #### C BC #### [facility] [address] [place] [address] Dr. Pratibha Stevenson pH (U) 6.5 [pH] Normal 5-9 [facility] Comment on above: Performed By: #### C BC #### [facility] [address] [place] [address] Dr. Pratibha Stevenson Protein (U) [Mass/Vol] 100 mg/dL Abnormal NEGATIVE/ TRACE [facility] Comment on above: Performed By: #### C BC #### [facility] [address] [place] [address] Dr. Pratibha Stevenson SPEC GRAVITY 1.010 Normal 1.005-<=1.025 [facility] Comment on above: Performed By: #### C BC #### [facility] [address] [place] [address] Dr. Pratibha Stevenson UR MICRO IND INDICATED Normal [facility] Comment on above: Performed By: #### C BC #### [facility] [address] [place] [address] Dr. Pratibha Stevenson Urobilinogen Qn (U) 1.0 {Butch'U}/dL Normal 0.2 - 1. 0 [facility] Comment on above: Performed By: #### C BC #### [facility] [address] [place] [address] Dr. Pratibha Stevenson LIPASEon 05-08-2022 Lipase [Catalytic activity/Vol] 417.0 U/L Critically high 73.0-393.0 [facility] Comment on above: Performed By: #### L ACT #### [facility] [address] [place] [address] Dr. Pratibha Stevenson PROF 14(COMP METB)on 023 Albumin [Mass/Vol] 4.5 g/dL Normal 3.4-5.0 [facility] Comment on above: Performed By: #### L ACT #### [facility] [address] [place] [address] Dr. Pratibha Stevenson Albumin/Globulin [Mass ratio] 1.3 {ratio} Normal [facility] Comment on above: Performed By: #### L ACT #### [facility] [address] [address] [address] Pratibha Stevenson ALP [Catalytic activity/Vol] 97 U/L Normal 46-116 [facility] Comment on above: Performed By: #### L ACT #### [facility] [address] [address] [address] Pratibha Stevenson ALT [Catalytic activity/Vol] 35 U/L Normal 16-63 [facility] Comment on above: Performed By: #### L ACT #### [facility] [address] [place] [address] Dr. Pratibha Stevenson Anion gap [Moles/Vol] 13.7 mmol/L Normal [facility] Comment on above: Performed By: #### L ACT #### [facility] [address] [place] [address] Dr. Pratibha Stevenson AST [Catalytic activity/Vol] 22 U/L Normal 15-37 [facility] Comment on above: Performed By: #### L ACT #### [facility] [address] [place] [address] Dr. Pratibha Stevenson Bilirubin [Mass/Vol] 0.7 mg/dL Normal 0.2-1.0 [facility] Comment on above: Performed By: #### L ACT #### [facility] [address] [place] [address] Dr. Pratibha Stevenson Calcium [Mass/Vol] 9.6 mg/dL Normal 8.5-10.1 [facility] Comment on above: Performed By: #### L ACT #### [facility] [address] [place] [address] Dr. Pratibha Stevenson Chloride [Moles/Vol] 99 mmol/L Normal 98-107 [facility] Comment on above: Performed By: #### L ACT #### [facility] [address] [place] [address] Dr. Pratibha Stevenson CO2 [Moles/Vol] 29.0 mmol/L Normal 21.0-32.0 [facility] Comment on above: Performed By: #### L ACT #### [facility] [address] [place] [address] Dr. Pratibha Stevenson Creatinine [Mass/Vol] 1.43 mg/dL Critically high 0.70-1.30 [facility] Comment on above: Performed By: #### L ACT #### [facility] [address] [address] [address] Pratibha Stevenson EGFR-AF HAITIAN >60 Normal >=60 [facility] Comment on above: Performed By: #### L ACT #### [facility] [address] [address] [address] Pratibha Stevenson EGFR-NON AF HAITIAN 58 mL/min/1.73m2 Critically low >=60 [facility] Comment on above: Performed By: #### L ACT #### [facility] [address] [place] [address] Dr. Pratibha Stevenson Globulin (S) [Mass/Vol] 3.5 g/dL Normal [facility] Comment on above: Performed By: #### L ACT #### [facility] [address] [address] [address] Pratibha Stevenson Glucose [Mass/Vol] 127 mg/dL Critically high 74-106 [facility] Comment on above: Performed By: #### L ACT #### [facility] [address] [place] [address] Dr. Pratibha Stevenson Potassium [Moles/Vol] 3.7 mmol/L Normal 3.5-5.1 [facility] Comment on above: Performed By: #### L ACT #### [facility] [address] [place] [address] Dr. Pratibha Stevenson Protein [Mass/Vol] 8.0 g/dL Normal 6.4-8.[address] [facility] Comment on above: Performed By: #### L ACT #### [facility] [address] [place] [address] Dr. Pratibha Stevenson Sodium [Moles/Vol] 138 mmol/L Normal 136-145 [facility] Comment on above: Performed By: #### L ACT #### [facility] [address] [address] [address] Pratibha Stevenson Urea nitrogen [Mass/Vol] 13.0 mg/dL Normal 7.0-18.0 [facility] Comment on above: Performed By: #### L ACT #### [facility] [address] [place] [address] Dr. Pratibha Stevenson Urea nitrogen/Creatinine [Mass ratio] 9.1 mg/mg Normal [facility] Comment on above: Performed By: #### L ACT #### [facility] [address] [place] [address] Dr. Pratibha Stevenson URINE MICROSCOPIC ONLYon BACTERIA NONE SEEN Normal NONE SEEN [facility] Comment on above: Performed By: #### C BC #### [facility] [address] [place] [address] Dr. Pratibha Stevenson Bacteria identified Cx Nom (U) NOT INDICATED Normal [facility] Comment on above: Performed By: #### C BC #### [facility] [address] [place] [address] Dr. Pratibha Stevenson CAST NONE SEEN Normal NONE SEEN [facility] Comment on above: Performed By: #### C BC #### [facility] [address] [place] [address] Dr. Pratibha Stevenson Crystals LM Nom (Urine sed) NONE SEEN Normal NONE SEEN [facility] Comment on above: Performed By: #### C BC #### [facility] [address] [place] [address] Dr. Pratibha Stevenson Epithelial cells LM Ql (Urine sed) FEW Abnormal NONE SEEN /RARE [facility] Comment on above: Performed By: #### C BC #### [facility] [address] [place] [address] Dr. Pratibha Stevenson MUCOUS TRACE Abnormal NONE SEEN [facility] Comment on above: Performed By: #### C BC #### [facility] [address] [place] [address] Dr. Pratibha Stevenson RBC (U) [#/Vol] /uL Abnormal 0-2 [facility] Comment on above: Performed By: #### C BC #### [facility] [address] [place] [address] Dr. Pratibha Stevenson WBC 2-5 Abnormal NONE SEEN [facility] Comment on above: Performed By: #### C BC #### [facility] [address] [place] [address] Dr. Pratibha Stevenson XR CHEST 1 Von [...] RAMO ZEPEDA Date: 2022-05-08 17:40 Normal [facility] CBC AUTO DIFFon 03-23-2022 BASO # 0.1 103/ul Normal 0.0-0.1 The [facility] Comment on above: Performed By: #### C BC #### [facility] [address] [place] [address] Dr. Pratibha Stevenson Basophils/100 WBC (Bld) 0.9 % Normal 0.2-2.0 The [facility] Comment on above: Performed By: #### C BC #### [facility] [address] [place] [address] Dr. Pratibha Stevenson EO # 0.1 103/ul Normal 0.0-0.7 [facility] Comment on above: Performed By: #### C BC #### [facility] [address] [place] [address] Dr. Pratibha Stevenson Eosinophils/100 WBC (Bld) 1.7 % Normal 0.9-7.0 The [facility] Comment on above: Performed By: #### C BC #### [facility] [address] [place] [address] Dr. Pratibha Stevenson Erythrocyte distribution width (RBC) [Ratio] 12.3 % Normal 11.0-15.0 [facility] Comment on above: Performed By: #### C BC #### [facility] [address] [place] [address] Dr. Pratibha Stevenson Hematocrit (Bld) [Volume fraction] 47.2 % Normal 42.0-54.0 [facility] Comment on above: Performed By: #### C BC #### [facility] [address] [place] [address] Dr. Pratibha Stevenson Hemoglobin (Bld) [Mass/Vol] 16.0 g/dL Normal 14.0-18.0 [facility] Comment on above: Performed By: #### C BC #### [facility] [address] [place] [address] Dr. Pratibha Stevenson IG # 0.03 10e3/ul Normal 0.00-0.03 [facility] Comment on above: Performed By: #### C BC #### [facility] [address] [place] [address] Dr. Pratibha Stevenson IG % 0.4 % Normal 0.0-0.5 [facility] Comment on above: Performed By: #### C BC #### [facility] [address] [place] [address] Dr. Pratibha Stevenson LYMPH # 2.5 103/ul Normal 1.2-3.8 [facility] Comment on above: Performed By: #### C BC #### [facility] [address] [place] [address] Dr. Pratibha Stevenson Lymphocytes/100 WBC (Bld) 30.4 % Normal 20.5-60.0 [facility] Comment on above: Performed By: #### C BC #### [facility] [address] [place] [address] Dr. Pratibha Stevenson MANUAL DIFF REQ NO Normal [facility] Comment on above: Performed By: #### C BC #### [facility] [address] [place] [address] Dr. Pratibha Stevenson MCH (RBC) [Entitic mass] 30.9 pg Normal 25.9-34.0 The [facility] Comment on above: Performed By: #### C BC #### [facility] [address] [place] [address] Dr. Pratibha Stevenson MCHC (RBC) [Mass/Vol] 33.9 g/dL Normal 29.9-35.2 The [facility] Comment on above: Performed By: #### C BC #### [facility] [address] [place] [address] Dr. Pratibha Stevenson MCV (RBC) [Entitic vol] 91.3 fL Normal 80.0-94.0 [facility] Comment on above: Performed By: #### C BC #### [facility] [address] [place] [address] Dr. Pratibha Stevenson MONO # 0.6 103/ul Normal 0.3-0.8 The [facility] Comment on above: Performed By: #### C BC #### [facility] [address] [place] [address] Dr. Pratibha Stevenson Monocytes/100 WBC (Bld) 7.6 % Normal 1.7-12.0 [facility] Comment on above: Performed By: #### C BC #### [facility] [address] [place] [address] Dr. Pratibha Stevenson NEUT # 4.8 103/ul Normal 1.4-6.5 [facility] Comment on above: Performed By: #### C BC #### [facility] [address] [place] [address] Dr. Pratibha Stevenson Neutrophils/100 WBC (Bld) 59.0 % Normal 43.0-75.0 The [facility] Comment on above: Performed By: #### C BC #### [facility] [address] [place] [address] Dr. Pratibha Stevenson Platelet mean volume (Bld) [Entitic vol] 10.2 fL Normal 9.5-13.5 [facility] Comment on above: Performed By: #### C BC #### [facility] [address] [place] [address] Dr. Pratibha Stevenson PLT 258 103/ul Normal 150-450 [facility] Comment on above: Performed By: #### C BC #### [facility] [address] [place] [address] Dr. Pratibha Stevenson RBC 5.17 106/ul Normal 4.70-6.10 [facility] Comment on above: Performed By: #### C BC #### [facility] [address] [place] [address] Dr. Pratibha Stevenson WBC 8.1 103/ul Normal 4.0-11.0 [facility] Comment on above: Performed By: #### C BC #### [facility] [address], [place] [address] ABD/PELVIS WO CONon [...] SHARON GODINEZ Date: 2022-03-22 23:40 Normal [facility] PROF 14(COMP METB)on 022 Albumin [Mass/Vol] 4.2 g/dL Normal 3.4-5.0 [facility] Comment on above: Performed By: #### L ACT #### [facility] [address], [place] [address] Dr. Pratibha Stevenson Albumin/Globulin [Mass ratio] 1.2 {ratio} Normal [facility] Comment on above: Performed By: #### L ACT #### [facility] [address], [place] [address] Dr. Pratibha Stevenson ALP [Catalytic activity/Vol] 84 U/L Normal 46-116 [facility] Comment on above: Performed By: #### L ACT #### [facility] [address] [address] [address] Pratibha Stevenson ALT [Catalytic activity/Vol] 32 U/L Normal 16-63 [facility] Comment on above: Performed By: #### L ACT #### [facility] [address] [address] [address] Pratibha Stevenson Anion gap [Moles/Vol] 10.6 mmol/L Normal [facility] Comment on above: Performed By: #### L ACT #### [facility] [address] [address] [address] Pratibha Stevenson AST [Catalytic activity/Vol] 18 U/L Normal 15-37 [facility] Comment on above: Performed By: #### L ACT #### [facility] [address] [place] [address] Dr. Pratibha Stevenson Bilirubin [Mass/Vol] 0.4 mg/dL Normal 0.2-1.0 [facility] Comment on above: Performed By: #### L ACT #### [facility] [address] [address] [address] Pratibha Stevenson Calcium [Mass/Vol] 9.8 mg/dL Normal 8.5-10.1 [facility] Comment on above: Performed By: #### L ACT #### [facility] [address] [address] [address] Pratibha Stevenson Chloride [Moles/Vol] 103 mmol/L Normal 98-107 [facility] Comment on above: Performed By: #### L ACT #### [facility] [address] [address] [address] Pratibha Stevenson CO2 [Moles/Vol] 28.2 mmol/L Normal 21.0-32.0 [facility] Comment on above: Performed By: #### L ACT #### [facility] [address] [address] [address] Pratibha Stevenson Creatinine [Mass/Vol] 1.24 mg/dL Normal 0.70-1.30 [facility] Comment on above: Performed By: #### L ACT #### [facility] [address] [address] [address] Pratibha Stevenson EGFR-AF HAITIAN >60 Normal >=60 [facility] Comment on above: Performed By: #### L ACT #### [facility] [address] [address] [address] Pratibha Stevenson EGFR-NON AF HAITIAN >60 Normal >=60 [facility] Comment on above: Performed By: #### L ACT #### [facility] [address] [address] [address] Pratibha Stevenson Globulin (S) [Mass/Vol] 3.6 g/dL Normal [facility] Comment on above: Performed By: #### L ACT #### [facility] [address] [address] [address] Pratibha Stevenson Glucose [Mass/Vol] 102 mg/dL Normal 74-[address] [facility] Comment on above: Performed By: #### L ACT #### [facility] [address] [address] [address] Pratibha Stevenson Potassium [Moles/Vol] 3.8 mmol/L Normal 3.5-5.1 [facility] Comment on above: Performed By: #### L ACT #### [facility] [address] [address] [address] Pratibha Stevenson Protein [Mass/Vol] 7.8 g/dL Normal 6.4-8.[address] [facility] Comment on above: Performed By: #### L ACT #### [facility] [address] [address] [address] Pratibha Stevenson Sodium [Moles/Vol] 138 mmol/L Normal 136-[address] [facility] Comment on above: Performed By: #### L ACT #### [facility] [address] [address] [address] Pratibha Stevenson Urea nitrogen [Mass/Vol] 18.0 mg/dL Normal 7.0-18.0 [facility] Comment on above: Performed By: #### L ACT #### [facility] [address] [address] [address] Pratibha Stevenson Urea nitrogen/Creatinine [Mass ratio] 14.5 mg/mg Normal [facility] Comment on above: Performed By: #### L ACT #### [facility] [address] [address] [address] Pratibha Stevenson Vital Signs Date Time Vital Sign Value Performing Clinician Janice daniels 07-21-2022 08:57-0400 Blood Pressure Location Shirley Lue [facility] 07-21-2022 08:57-0400 Diastolic blood pressure 69 mm[Hg] Shirley Lue [facility] 07-21-2022 08:57-0400 Heart rate 74 /min Shirley Lue [facility] 07-21-2022 08:57-0400 Systolic blood pressure 133 mm[Hg] Shirley Lue [facility] 07-13-2022 09:17-0400 Blood Pressure Location Shirley Lue [facility] 07-13-2022 09:17-0400 Diastolic blood pressure 68 mm[Hg] Shirley Lue [facility] 07-13-2022 09:17-0400 Heart rate 73 /min Shirley Lue [facility] 07-13-2022 09:17-0400 Systolic blood pressure 124 mm[Hg] Shirley L[facility] Encounters Encounter Date Encounter Type Care Provider Facility Start: 06-14-2023 End: 06-15-2023 [facility] Start: 06-14-2023 End: 06-14-2023 Subsequent hospital visit by physician Manjit Waller [facility] Comment on above: Arrived Start: 06-12-2023 End: 06-13-2023 ambulatory [facility] Start: 06-12-2023 End: 06-12-2023 Subsequent hospital visit by physician Manjit Waller [facility] Comment on above: Arrived Start: 06-09-2023 End: 06-10-2023 ambulatory [facility] Start: 06-09-2023 End: 06-09-2023 Subsequent hospital visit by physician Flash Goodwin PTA [facility] Comment on above: Arrived Start: 06-05-2023 End: 06-06-2023 ambulatory [facility] Start: 05-31-2023 End: 06-01-2023 [facility] Start: 05-29-2023 End: 05-30-2023 [facility] Start: 05-26-2023 End: 05-27-2023 [facility] Start: 05-22-2023 End: 05-23-2023 ambulatory [facility] Start: 05-17-2023 End: 05-18-2023 ambulatory [facility] Start: 03-13-2023 End: 03-13-2023 [facility] Start: 02-16-2023 End: 02-17-2023 ambulatory [facility] Start: 02-16-2023 End: 02-17-2023 Encounter for other preprocedural examination [facility] Start: 08-11-2022 End: 08-11-[address] LATRICIA GUZMAN . Facility: Start: 07-22-2022 End: 07-23-[address] LATRICIA GUZMAN . Facility: Start: 07-21-2022 End: 07-22-2022 ambulatory Shirley Murrell Facility:[facility] Start: 07-21-2022 End: 07-21-2022 Patient encounter procedure Shirley Murrell [facility] Desiree Start: 07-20-2022 End: 07-20-[address] LATRICIA GUZMAN . Facility: Start: 07-13-2022 End: 07-14-2022 ambulatory Shirley Murrell Facility:[facility] Start: 07-13-2022 End: 07-13-2022 Patient encounter procedure Shirley ZionJoselin Murrell [facility] Ernesto Start: 07-06-2022 End: 07-07-2022 ambulatory SHIRLEY MURRELL . Facility: Start: 05-23-2022 End: 05-24-2022 ambulatory Shirley Murrell Facility[facility] Start: 05-23-2022 End: 05-23-2022 Patient encounter procedure Shirley Murrell [facility] Start: 05-11-2022 End: 05-12-2022 ambulatory Shirley Murrell Facility:[id number] Start: 05-08-2022 End: 05-12-[address] [...] encounter procedure 06/26/2023 2:30 PM EST Appointment [facility] [address] [place], [place] [id number] Manjit Waller [facility] Start: 06-23-2023 End: 06-23-2023 Patient encounter procedure 06/23/2023 1:45 PM EST Appointment [facility] [address] [place] [id number] Flash Goodwin PTA [facility] Start: 06-19-2023 End: 06-19-2023 Patient encounter procedure 06/19/2023 3:15 PM EST Appointment [facility] [address] [place] [id number] Manjit Waller [facility] Start: 06-14-2023 End: 06-14-2023 Patient encounter procedure 06/14/2023 3:30 PM EST Appointment [facility] [address] [place] [id number] Manjit Waller [facility] Start: 06-12-2023 End: 06-12-2023 Patient encounter procedure 06/12/2023 3:15 PM EST Appointment [facility] [address] [place] [id number] Manjit Waller [facility] Start: 11-29-2022 Influenza vaccination Flu vaccine (# 1) [facility] Start: 2010 Hepatitis C screening Hepatitis C sc reen [facility] Start: 08-18-2007 HIV screening HIV screen [facility] Start: 2004 Depression Screen Depression Screen [facility] Start: 08-18-2003 DTaP/Tdap/Td vaccine (6 - Tdap) DTaP/Tdap/Td vaccine (6 - Tdap) [facility] Start: 1993 Varicella vaccine (1 of 2 - 2-dose childhood series) Varicella vaccine (1 of 2 - 2-dose childhood series) [facility] Start: 02-16-1993 COVID-19 Vaccine (#1) COVID-19 Vacci ne (#1) [facility] Immunizations Immunization Date Immunization Notes Care Provider Khushbu thao 12-26-1997 DTaP, unspecified formulation Shirley Murrell [facility] 12-26-1997 measles, mumps and rubella virus vaccine Shirley Murrell [facility] 01-10-1994 DTaP, unspecified formulation Shirley Lue [facility] 01-10-1994 hepatitis B vaccine, pediatric or pediatric/adolescent dosage Shirley Lue [facility] 01-10-1994 Hib, unspecified formulation Shirley Lue [facility] 01-10-1994 measles, mumps and rubella virus vaccine Shirley Lue [facility] 03-12-1993 Hib, unspecified formulation Shirley Lue [facility] [facility] 01-01-1993 hepatitis B vaccine, pediatric or pediatric/adolescent dosage Shirley Lue [facility] 01-01-1993 Hib, unspecified formulation Shirley Lue [facility] 1992 hepatitis B vaccine, pediatric or pediatric/adolescent dosage Shirley Lue [facility] 1992 Hib, unspecified formulation Shirley Lue [facility] Payers Date Payer Category Payer Unknown [id number] 2.16.8 40.1.764123.3.579.2.72 1992 Unknown [id number] 2.16.8 40.1.740201.3.579.2.727 1992 Unknown [id number] 2.16.8 40.1.292871.3.579.2.727 1992 Unknown [id number] 2.16.8 40.1.005772.3.579.2.727 1992 Unknown [id number] 2.16.84 0.1.480782.3.579.2.593 1992 Unknown [id number] 2.16.84 0.1.748573.3.579.2.593 1992 Unknown [id number] 2.16.84 0.1.902104.3.579.2.593 1992 Unknown [id number] 2.16.84 0.1.015487.3.579.2.593 1992 Unknown [id number] 2.16.84 0.1.300412.3.579.2.593 1992 Unknown [id number] 2.16.84 0.1.096311.3.579.2.593 1992 Unknown [id number] 2.16.8 40.1.260700.3.579.2.173 1992 Unknown [id number] 2.16.8 40.1.349631.3.579.2.173 1992 Unknown [id number] 2.16.8 40.1.308275.3.579.2.173 1992 Unknown [id number] 2.16.8 40.1.569596.3.579.2.173 1992 Unknown [id number] 2.16.8 40.1.153211.3.579.2.173 1992 Unknown [id number] 2.16.8 40.1.970812.3.579.2.173 1992 Unknown [id number] 2.16.8 40.1.823532.3.579.2.173 1992 Unknown [id number] 2.16.8 40.1.135627.3.579.2.173 1992 Unknown [id number] 2.16.8 40.1.152854.3.579.2.173 1992 Unknown [id number] 2.16.8 40.1.909753.3.579.2.173 1992 Unknown [id number] 2.16.8 40.1.576345.3.579.2.173 1957 Medicaid [id number] 1957 Self-pay [id number] Self-pay Social History Date Type Detail Facility Tobacco smoking status No Smoking Status Entered [facility] Sex Assigned At Male [facility] Start: 07-13-2022 End: 07-21-2022 Tobacco smoking status Light tobacco smoker (finding) [facility] Tobacco smoking status Never [facility] Tobacco smoking status NHIS Tobacco smoking consumption unknown [facility] Start: 1990 Sex Assigned At Not on file [facility] Functional Status Date Assessment Result Facility 07-21-2022 Functional Status N/A 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 -met [employer] Goals Time Frame for Shelter Goals : 6 weeks [employer]ician Goal 1: Patient to be independent and compliant with HEP. -met [employer] Goal 2: Patient to have improved R knee AROM 0-120* with no increase in pain for improved mobility. -met (05/31/23 R knee AROM 0-130*) Shelter Goal 3: Patient to have improved R LE strength >/=4/5 grossly all major joints and planes for improved knee stability with gait. Gas Plant Technician Goal 4: Pt to report ability to walk community distances with no AD and no gait deviations or increase in pain to return to PLOF. -progressing Minutes Tracking: Time In: 1530 Time Out: 1614 Minutes: 44 Timed Code Treatment Minutes: 43 Minutes Manjit Thorpe Date: 06/14/2023 documented in this encounter [facility] History of Present illness Narrative 06-12-2023 Manjit Waller - 06/12/2023 3:15 PM EST Note Date & Type Note Facility 06-12-2023 History of Present illness Narrative [facility] Outpatient Physical Therapy Daily Note Patient: Ethan Donald : 1990 CSN #: [id number] Referring Physician: Jon Reynoso MD Date: 06/12/2023 Diagnosis: R patellar dislocation, S83.004A; R darell-schlatter's disease, M92.521; R knee chondromalacia, 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 -met Shelter Goals Time Frame for Gas Plant Technician Goals : 6 weeks [employer] Plant Technician Goal 1: Patient to be independent and compliant with HEP. -met Shelter Goal 2: Patient to have improved R knee AROM 0-120* with no increase in pain for improved mobility. -met (05/31/23 R knee AROM 0-130*) Shelter Goal 3: Patient to have improved R LE strength >/=4/5 grossly all major joints and planes for improved knee stability with gait. Gas Plant Technician Goal 4: Pt to report ability to walk community distances with no AD and no gait deviations or increase in pain to return to PLOF. -progressing Minutes Tracking: Time In: 1515 Time Out: 1558 Minutes: 43 Timed Code Treatment Minutes: 41 Minutes Manjit Thorpe Date: 06/12/2023 documented in this encounter [facility] Discharge instructions 07-21-2022 Note Date & [...] include: ?Spinach. ?Rhubarb. ?Beets. ?Potato chips and equatorial guinean fries. ?Nuts. If you regularly take a diuretic medicine, make sure to eat at least 1 2 fruits or vegetables high in potassium each day. These include: ?Avocado. ?Banana. ?[place]ondack, prune, carrot, or tomato juice. ?Baked potato. [...] Casseroles. Pizza. Lasagna. Frozen meals. Potato chips. Namibian fries. Summary You can reduce your risk [...] 08/12/2011 Document Revised: 08/07/2019 Document Reviewed: 03/28/2017 [employer] Patient Education 2019 [employer]. Follow Up Care 07/20/2022 16:11:07 With:Handy WILEY, DANA Llamas, URO Address: When: Unknown [facility] Discharge instructions 07-13-2022 Note [...] include: ?Spinach. ?Rhubarb. ?Beets. ?Potato chips and equatorial guinean fries. ?Nuts. If you regularly take a diuretic medicine, make sure to eat at least 1 2 fruits or vegetables high in potassium each day. These include: ?Avocado. ?Banana. ?Adirondack, prune, carrot, or tomato juice. ?Baked potato. [...] Casseroles. Pizza. Lasagna. Frozen meals. Potato chips. Namibian fries. Summary You can reduce your risk [...] 08/12/2011 Document Revised: 08/07/2019 Document Reviewed: 03/28/2017 [employer] Patient Education 2020 [employer]. Follow Up Care 05/23/2022 10:22:28 With:Handy WILEY, Shirley Menchaca, URL, [facility] Address: When: Unknown [facility] History and physical note 05-26-2022 Note Date & Type Note Facility 05-26-2022 Note [id number] [facility] Evaluation + Plan note Note Date & Type Note Facility Evaluation + Plan note Future Appointments Appointment Date:07/13/2022 09:00:00 AM Scheduled Provider:Shirley Murrell MD Location:[facility] Appointment Type:URO Office Visit [facility] Hospital course Narrative Note Date & Type Note Facility Hospital course Narrative No data available for this section [facility] Hospital Discharge instructions Note Date & Type Note Facility Hospital Discharge instructions No data available for this section [facility] Progress note Note Date & Type Note Facility Progress note No data available for this section [facility] Summary Purpose Family History No Family History Records FoundNo Family History Records FoundNo Family History Records Found Advance Directives No Advanced Directives Records FoundNo Advanced Directives Records FoundNo Advanced Directives Records Found Additional Source Comments Patient Care team informatio n (unrecognized section and content) Detail Assembler Relationship Specialty Start Date End Date Latricia Guzman MD [facility] [place] [address] PCP - General Family Medicine 02/16/23 Detail Assembler Relationship Specialty Start Date End Date Latricia Guzman MD [address] [place] [address] PCP - General Family Medicine 02/16/23 (unrecognized sect ion and content) No Status Records FoundNo Status Records FoundNo Status Records Found INFORMATION SOURCE (unrecogn ized section and content) DATE CREATED AUTHOR 07/31/2022 [facility] DATE CREATED AUTHOR AUTHOR'S ORGANIZ ATION 09/13/2022 [facility] DATE CREATED AUTHOR AUTHOR'S CHEVY LINARES 06/16/2023 Sherlyn Martínez [facility] FOR RECORDS PERTAINING TO PATIENTS WHO [...] BE BASED ON THE PRIMARY CLINICAL RECORDS. [facility] provides no warranty or guarantee of the accuracy or completeness of information in this document.
--- NOTE | 2024-02-11 22:54 | CT_ITS ---
The [address] [address] Patient Name: OLEGARIO DONALD MRN: [id number] date: 1990 Sex: M Assigned Patient Location: ER Current Patient Location: ER Accession/Order Number: [id number] Exam Date: 02/11/2024 23:04 Report Date: 02/12/2024 01:15 At the request of: ROXI ESTES Procedure: CT abdomen pelvis wo con EXAM: CT abdomen pelvis wo con HISTORY: Right flank pain, r/o stone COMPARISON: CT abdomen and pelvis examination dated 07/22/2022. TECHNIQUE: Noncontrast axial CT images through the abdomen and pelvis were obtained with coronal and sagittal reformats. Dose reduction techniques were achieved by using automated exposure control and/or adjustment of mA and/or kV according to patient size and/or use of iterative reconstruction technique. FINDINGS: The visualized portions of the lung bases are clear. Abdomen: Please note that the sensitivity for detection of focal lesions or vascular disease is markedly reduced without intravenous contrast. The liver and spleen are unremarkable. There is no intra or extrahepatic biliary duct dilatation. The gallbladder is unremarkable. There are bilateral nonobstructive renal calculi measuring up to 0.3 cm on the right. There are scattered colonic diverticula without evidence of acute inflammation. Otherwise, the pancreas, adrenal glands, and bowel loops, including the appendix, are unremarkable. There is no mesenteric or retroperitoneal lymphadenopathy. Pelvis: The bladder demonstrates wall thickening. The rectum is unremarkable. There is no iliac or inguinal lymphadenopathy. There is mild atherosclerotic disease. Bone windows show no aggressive osseous lesions. CT/CT abdomen pelvis wo con IMPRESSION: 1. Bilateral nonobstructive renal calculi with no ureteral calculus seen. 2. Scattered colonic diverticula without evidence of acute inflammation. 3. Normal appendix. 4. Urinary bladder wall thickening. Please correlate with urinalysis for infection. Electronically authenticated by: Zuleyma LEON Date: 02/12/2024 01:15
--- NOTE | 2024-02-11 22:54 | ED.GENADUL1 ---
HPI HPI - General Adult General Chief complaint: Abdominal Pain Stated complaint: Flank Pain Time Seen by Provider: 02/11/24 22:44 Source: patient Mode of arrival: walk-in Limitations: no limitations History of Present Illness HPI narrative: 33-year-old male presents to the emergency department for right flank pain. He has had a little bit of back pain for few weeks but then it got much worse this morning. It started in his right flank and now is radiating down towards his right lower quadrant of his abdomen. He has had kidney stones before. No gross hematuria. The pain is moderate and waxes and wanes. Related Data Home Medications ?Medication ?Instructions ?Recorded ?Confirmed ondansetron HCl 4 mg tablet 4 mg PO Q6H PRN nausea and vomiting 05/11/23 02/11/24 tizanidine 4 mg tablet mg 02/11/24 Previous Rx's ?Medication ?Instructions ?Recorded methocarbamol 750 mg tablet 750 mg PO Q6H PRN pain #20 tabs 02/12/24 Allergies Allergy/AdvReac Type Severity Reaction Status Date / Time naproxen Allergy Unknown Abdominal Verified 02/11/24 22:50 Pain Opioid HPI Opioid Management Most Recent Opioid Data: Last Pain Scale 10 02/11/24 23:31 02/11/24 Review of Systems ROS Narrative A ten point review of systems is negative except as noted above. PFSH PFSH Social History Smoking status: Current every day smoker Little interest or pleasure in doing things: not at all Feeling down, depressed, or hopeless: not at all Exam Narrative Exam Narrative: Nurses note and vital signs reviewed and patient is not hypoxic. General: The patient appears well and in no apparent distress. Skin: Warm, dry, no pallor noted. There is no rash noted. Head: Normocephalic, atraumatic Eye: Normal conjunctiva, no drainage Ears, Nose, Mouth, and Throat: oral mucosa is moist. Nares patent. Cardiovascular: Regular Rate and Rhythm Respiratory: Patient is in no distress, no accessory muscle use, lungs are clear to auscultation, no wheezing, rales or rhonchi Back: non-tender, no CVA tenderness bilaterally to percussion. No bruise or rash to his back GI: Soft and nontender Musculoskeletal: No joint swelling Neurological: A&O, normal speech Psychiatric: Cooperative Constitutional Vital Signs, click to edit/add: Last Vital Signs Temp 98.2 F 02/11/24 22:46 Pulse 95 H 02/11/24 22:46 Resp 18 02/11/24 22:46 BP 140/87 02/11/24 22:46 Pulse Ox 97 02/11/24 22:46 O2 Del Method Room Air 02/11/24 22:46 Course Vital Signs Vital signs: Vital Signs Temperature 98.2 F 02/11/24 22:46 Pulse Rate 95 H 02/11/24 22:46 Respiratory Rate 18 02/11/24 22:46 Blood Pressure 140/87 02/11/24 22:46 Pulse Oximetry 97 02/11/24 22:46 Oxygen Delivery Method Room Air 02/11/24 22:46 Temperature 98.2 F 02/11/24 22:46 Pulse Rate 95 H 02/11/24 22:46 Respiratory Rate 18 02/11/24 22:46 Blood Pressure 140/87 02/11/24 22:46 Pulse Oximetry 97 02/11/24 22:46 Oxygen Delivery Method Room Air 02/11/24 22:46 Medical Decision Making MDM Narrative Medical decision making narrative: Urinalysis is negative, no hematuria. CAT scan shows no ureteral stones. Tiny nonobstructing stones in each kidney. No acute findings present. My clinical impression is that this is muscle pain and he is able to be discharged home. Treatment diagnosis and follow-up were discussed with the patient. Differential Diagnosis Differential Diagnosis: Kidney stone, muscle strain Lab Data Lab results reviewed: Yes I reviewed the patient's lab results Labs: Lab Results 02/11/24 Range/Units 23:00 Urine Color Lt. yellow (YELLOW) Urine Clarity Clear (CLEAR) Urine pH 6.0 (5.0-9.0) Ur Specific [place] 1.020 (1.005-1.025) Urine Protein Negative (NEG/TRACE) mg/dL Urine Glucose (UA) Negative (NEGATIVE) mg/dL Urine Ketones Negative (NEGATIVE) mg/dL Urine Occult Blood Negative (NEGATIVE) Urine Nitrite Negative (NEGATIVE) Urine Bilirubin Negative (NEGATIVE) Urine Urobilinogen 0.2 (0.2-1.0) EU/dL Ur Leukocyte Esterase Negative (NEGATIVE) Urine RBC None seen (0-2) #/HPF Urine WBC None seen (NONE SEEN) #/HPF Ur Squamous Epith Cells Rare (NONE/RARE) #/LPF Urine Crystals None seen (None Seen) #/HPF Urine Bacteria None seen (NONE SEEN) #/HPF Urine Casts None seen (NONE SEEN) #/LPF Urine Mucus None seen (NONE SEEN) Imaging Data CT scan - abdomen: Radiologist's impression: ITS Impressions Abdomen/Pelvis CT 02/11/24 22:54 IMPRESSION: 1. Bilateral nonobstructive renal calculi with no ureteral calculus seen. 2. Scattered colonic diverticula without evidence of acute inflammation. 3. Normal appendix. 4. Urinary bladder wall thickening. Please correlate with urinalysis for infection. Electronically authenticated by: Zuleyma LEON Date: 02/12/2024 01:15 Discharge Plan Discharge Chief Complaint: Abdominal Pain Clinical Impression: Flank pain Patient Disposition: Home, Self-Care Time of Disposition Decision: 01:21 Condition: Good Mode of Transportation: Private Vehicle Prescriptions / Home Meds: New methocarbamol 750 mg tablet 750 mg PO Q6H PRN (Reason: pain) Qty: 20 0RF No Action ondansetron HCl 4 mg tablet 4 mg PO Q6H PRN (Reason: nausea and vomiting) tizanidine 4 mg tablet Print Language: St [place]ian Instructions: Flank Pain (ED) Additional Instructions: Do not take tizanidine while on methocarbamol. Referrals: Jc Guzman MD [Primary Care Provider] - 1 week
[2024-02-11 23:11] LABS: Bilirubin Urine NEGATIVE (NEGATIVE); Blood Urine NEGATIVE (NEGATIVE); Clarity Urine CLEAR (CLEAR); Color Urine LT. YELLOW (YELLOW); Glucose Urine UA NEGATIVE (NEGATIVE); Ketones Urine NEGATIVE (NEGATIVE); Leukocyte Esterase Urine NEGATIVE (NEGATIVE); Nitrite Urine NEGATIVE (NEGATIVE); Protein Urine NEGATIVE (NEG/TRACE); Urobilinogen Urine 0.2 EU/dL (0.2-1.0)
[2024-02-11 23:17] LABS: Bacteria Urine NONE SEEN #/HPF (NONE SEEN); Cast Seen? NONE SEEN #/LPF (NONE SEEN); Crystals Seen? None Seen #/HPF (None Seen); Mucus Urine NONE SEEN (NONE SEEN); RBC Urine NONE SEEN #/HPF (0-2); Squamous Epithelial Cell Urine RARE #/LPF (NONE/RARE); WBC Urine NONE SEEN #/HPF (NONE SEEN)
[2024-02-11] MEDS: ONDANSETRON 4 MG RAPDIS TABLET SL (23:31)
[2024-02-11] MEDS: KETOROLAC TROMETHAMINE 60 MG/2 ML VIAL IM (23:31)
== END 2024-02-12 01:26 | disposition home or self-care (01) ==
PROVIDERS: Emergency Provider Emergency Medicine; PCP Family Medicine
DX: R10.9 Unspecified abdominal pain (principal); F17.200 Nicotine dependence, unspecified, uncomplicated
CPT/HCPCS: 74176; 81001; 96372; 99284; J1885; Q0162

== ENCOUNTER 2024-02-25 10:22 | Emergency (ER) | payer SELFPAY ==
[2024-02-25] VITALS (16 sets, daily range): BP systolic 115–141; BP diastolic 75–91; PULSE 92; TEMP 36.8; O2SAT 95–98; BMI 29.5
--- OUTSIDE RECORDS SUMMARY | 2024-02-25 10:31 | XMS_ITS | CCD ---
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 Name Role Phone Latricia Guzman Primary Care Physician Shirley Murrell Attending Unavailable Lue Shirley MJoselin Referring Unavailable Lue, Shirley MJoselin Admitting Unavailable Lue Shirley MJoselin Attending Unavailable Lue Shirley MJsoelin Referring Unavailable Lue, Shirley MJoselin Attending Unavailable [...] Unavailable Latricia Guzman MD Primary Care Provider [phone] MICHELLE, JON E Referring Unavailable HOY, [...] 3 Unknown (qualifier value), Nausea And Vomiting [facility] (1 source) Naproxen Drug Allergy [facility] Repository Medications Current Medications Medication [...] procedure., # 2 cap(s), Refills(s) 0, Pharmacy: [id number] Start Date: 05/12/22 Status: Ordered Problems [...] Alfonso Charles MD 03/13/23 Final result Normal [facility] OPERATIVE REPORTon OPERATIVE REPORT [address] [id number] OPERATIVE REPORT PATIENT NAME: ETHAN DONALD : 1990 MED REC NO: [id number] ROOM: ACCOUNT NO: [id number] ADMIT DATE: 03/13/2023 PROVIDER: Jon Reynoso DATE OF PROCEDURE: 03/13/2023 PREOPERATIVE DIAGNOSES: 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 POSTOPERATIVE DIAGNOSES: 1. Subluxing patella. 2. Chondromalacia. 3. Cleveland-Schlatter disease. PROCEDURES PERFORMED: Arthroscopy of right knee with: 1. Chondroplasty. 2. Lateral release. 3. Mini arthrotomy with excision of Cleveland-Schlatter ossicle. SURGEON: Dr. Jon Reynoso. ANESTHESIA: General. [...] was then oversewn with 2-0 Vicryl interrupted aforxe-nk-welll sutures. Skin margins were injected with 0.5% [...] in two weeks. JON REYNOSO [id number] Doc#: [id number] CC: Normal [facility] Basic Metabolic Profon 02-16 Anion gap [Moles/Vol] 11 mmol/L Normal - [facility] Comment on above: Performed By: #### B WENDY, CDP #### [facility] [address] [place] [address] Patient Safety Tech: Ramo Jesus MD BUN/CRE Ratio 9 Normal - [facility] Comment on above: Performed By: #### Marquez NGUYEN, CDP #### [facility] [address] [place] [address] Patient Safety Tech: Ramo Jesus MD Calcium [Mass/Vol] 9.7 mg/dL Normal 8.6-10.4 [facility] Comment on above: Performed By: #### Marquez NGUYEN, CDP #### [facility] [address] [place] [address] Patient Safety Tech: Ramo Jesus MD Chloride [Moles/Vol] 100 mmol/L Normal 98-107 [facility] Comment on above: Performed By: #### Marquez NGUYEN, CDP #### [facility] [address] [place] [address] Patient Safety Tech: Ramo Jesus MD CO2 [Moles/Vol] 27 mmol/L Normal 20-31 [facility] Comment on above: Performed By: #### Marquez NGUYEN, CDP #### [facility] [address] [place] [id number] Patient Safety Tech: Ramo Jesus MD Creatinine [Mass/Vol] 1.2 mg/dL Normal 0.7-1.2 [facility] Comment on above: Performed By: #### B WENDY, CDP #### [facility] [address] [place] [address] Patient Safety Tech: Ramo Jesus MD GFR/1.73 sq M.predicted among non-blacks MDRD (S/P/Bld) [Vol rate/Area] mL/min/{1.73_m2} Normal >60 [facility] Comment on above: Result Comment: These [...] Performed By: #### B WENDY, CDP #### [facility] [address] [place], [place] [id number] Patient Safety Tech: Ramo Jesus MD Glucose [Mass/Vol] 115 mg/dL High 70-99 [facility] Comment on above: Performed By: #### B WENDY, CDP #### [facility] [address] [place] [address] Patient Safety Tech: Ramo Jesus MD Potassium [Moles/Vol] 3.9 mmol/L Normal 3.7-5.3 [facility] Comment on above: Performed By: #### B WENDY, CDP #### [facility] [address] [place] [id number] Patient Safety Tech: Ramo Jesus MD Sodium [Moles/Vol] 138 mmol/L Normal 135-144 [facility] Comment on above: Performed By: #### B WENDY, CDP #### [facility] [address] [place] [address] Patient Safety Tech: Ramo Jesus MD Urea nitrogen [Mass/Vol] 11 mg/dL Normal 6-20 [facility] Comment on above: Performed By: #### B WENDY, CDP #### [facility] [address] [place] [address] Patient Safety Tech: Ramo Jesus MD CBC with Diffon 02-16-2023 Abs. Basophil 0.07 k/uL Normal 0.00-0.20 [facility] Comment on above: Performed By: #### B WENDY, CDP #### [address] [place] [address] Patient Safety Tech: Ramo Jesus MD Abs.Imm.Granulocyte 0.04 k/uL Normal 0.00-0.30 [facility] Comment on above: Performed By: #### B WENDY, CDP #### [address] [place] [address] Patient Safety Tech: Ramo Jesus MD Abs.Neutrophil (Seg) 5.65 k/uL Normal 1.50-8.10 [facility] Comment on above: Performed By: #### B WENDY, CDP #### [address] [place], [place] [id number] Patient Safety Tech: Ramo Jesus MD Basophils/100 WBC (Bld) 1 % Normal 0-2 [facility] Comment on above: Performed By: #### B WENDY, CDP #### [facility] [address] [place] [address] [place] [address] Patient Safety Tech: Ramo Jesus MD Eosinophils (Bld) [#/Vol] 0.14 10*3/uL Normal 0.00-0.44 [facility] Comment on above: Performed By: #### B WENDY, CDP #### [address] [place] [address] Patient Safety Tech: Ramo Jesus MD Eosinophils/100 WBC (Bld) 2 % Normal 1-4 [facility] Comment on above: Performed By: #### B MP, CDP #### [facility] [address] [place] [address] Patient Safety Tech: Ramo Jesus MD Erythrocyte distribution width (RBC) [Ratio] 12.1 % Normal 11.8-14.4 [facility] Comment on above: Performed By: #### B MP, CDP #### [facility] [address] [place], [facility] Patient Safety Tech: Ramo Jesus MD Hematocrit (Bld) [Volume fraction] 44.9 % Normal 40.7-50.3 [facility] Comment on above: Performed By: #### B WENDY, CDP #### [facility] [address] [place], [facility] Patient Safety Tech: Ramo Jesus MD Hemoglobin (Bld) [Mass/Vol] 15.2 g/dL Normal 13.0-17.0 [facility] Comment on above: Performed By: #### B WENDY, CDP #### [facility] [address] [place] [address] Patient Safety Tech: Ramo Jesus MD Immature granulocytes/100 WBC (Bld) 1 % High 0 [facility] Comment on above: Performed By: #### B MP, CDP #### [facility] [address] [place], [facility] Patient Safety Tech: Ramo Jesus MD Lymphocytes (Bld) [#/Vol] 2.02 10*3/uL Normal 1.10-3.70 [facility] Comment on above: Performed By: #### B MP, CDP #### [facility] [address] [place], [place] [address] Patient Safety Tech: Ramo Jesus MD Lymphocytes/100 WBC (Bld) 24 % Normal 24-43 [facility] Comment on above: Performed By: #### B MP, CDP #### [facility] [address] [place] [address] Patient Safety Tech: Ramo Jesus MD MCH (RBC) [Entitic mass] 31.6 pg Normal 25.2-33.5 [facility] Comment on above: Performed By: #### B MP, CDP #### [address] [place] [address] Patient Safety Tech: Ramo Jesus MD MCHC (RBC) [Mass/Vol] 33.9 g/dL Normal 28.4-34.8 [facility] Comment on above: Performed By: #### B MP, CDP #### [address] [place] [address] Patient Safety Tech: Ramo Jesus MD MCV (RBC) [Entitic vol] 93.3 fL Normal 82.6-102.9 [facility] Comment on above: Performed By: #### B MP, CDP #### [address] [place], [place] [id number] Patient Safety Tech: Ramo Jesus MD Monocytes (Bld) [#/Vol] 0.60 10*3/uL Normal 0.10-1.20 [facility] Comment on above: Performed By: #### B MP, CDP #### [address] [place], [place] [address] Patient Safety Tech: Ramo Jesus MD Monocytes/100 WBC (Bld) 7 % Normal 3-12 [facility] Comment on above: Performed By: #### B MP, CDP #### [facility] [address] [place] [address] Patient Safety Tech: Ramo Jesus MD Neutrophil (Seg) 65 % Normal 36-65 [facility] Comment on above: Performed By: #### B MP, CDP #### [facility] [address] [place] [address] Dr[address] [place], [facility] Patient Safety Tech: Ramo Jesus MD NRBC Automated 0.0 per 100 WBC Normal 0.0 [facility] Comment on above: Performed By: #### B WENDY, CDP #### [facility] [address] [place], [place] [id number] Patient Safety Tech: Ramo Jesus MD Platelet mean volume (Bld) [Entitic vol] 9.7 fL Normal 8.1-13.5 [facility] Comment on above: Performed By: #### B WENDY, CDP #### [facility] [address] [place], [place] [id number] Patient Safety Tech: Ramo Jesus MD Platelets (Bld) [#/Vol] 252 10*3/uL Normal 138-453 [facility] Comment on above: Performed By: #### B WENDY, CDP #### [facility] [address] [place], [place] [address] Patient Safety Tech: Ramo Jesus MD RBC (Bld) [#/Vol] 4.81 10*6/uL Normal 4.21-5.77 [facility] Comment on above: Performed By: #### Marquez NGUYEN, CDP #### [address] [place], [place] [id number] Patient Safety Tech: Ramo Jesus MD WBC (Bld) [#/Vol] 8.5 10*3/uL Normal 3.5-11.3 [facility] Comment on above: Performed By: #### B WENDY, CDP #### [facility] [address] [place], [place] [address] Patient Safety Tech: Ramo Jesus MD GROUP A STREP CULTUREon 07-30 S. pyogenes Ag Ql (Unsp spec) Culture Observations: NEGATIVE FOR GROUP A STREPTOCOCCUS. Normal [facility] Comment on above: Performed By: #### S SCRN, GRASTCX #### [facility] [address] [address] [address] Pratibha Stevenson STREPT SCREENon 08-11-2022 STREP SCREEN A Negative Normal NEGATIVE [facility] Comment on above: Performed By: #### S SCRN, GRASTCX #### [facility] [address] [place] [address] Dr. Pratibha Stevenson AMYLASEon 07-23-2022 Amylase [Catalytic activity/Vol] 50 U/L Normal 25-115 [facility] Comment on above: Performed By: #### E RUR #### [facility] [address] [place] [address] Dr. Pratibha Stevenson CBC AUTO DIFFon 07-23-2022 BASO # 0.1 103/ul Normal 0.0-0.1 [facility] Comment on above: Performed By: #### L ACT #### [facility] [address] [place] [address] Dr. Pratibha Stevenson Basophils/100 WBC (Bld) 1.0 % Normal 0.2-2.0 [facility] Comment on above: Performed By: #### L ACT #### [facility] [address] [place] [address] Dr. Pratibha Stevenson EO # 0.1 103/ul Normal 0.0-0.7 [facility] Comment on above: Performed By: #### L ACT #### [facility] [address] [place] [address] Dr. Pratibha Stevenson Eosinophils/100 WBC (Bld) 1.7 % Normal 0.9-7.0 [facility] Comment on above: Performed By: #### L ACT #### [facility] [address] [place] [address] Dr. Pratibha Stevenson Erythrocyte distribution width (RBC) [Ratio] 12.1 % Normal 11.0-15.0 [facility] Comment on above: Performed By: #### L ACT #### [facility] [address] [place] [address] Dr. Pratibha Stevenson Hematocrit (Bld) [Volume fraction] 45.9 % Normal 42.0-54.0 [facility] Comment on above: Performed By: #### L ACT #### [facility] [address] [place] [address] Dr. Pratibha Stevenson Hemoglobin (Bld) [Mass/Vol] 15.6 g/dL Normal 14.0-18.0 [facility] Comment on above: Performed By: #### L ACT #### [facility] [address] [place] [address] Dr. Pratibha Stevenson IG # 0.01 10e3/ul Normal 0.00-0.03 [facility] Comment on above: Performed By: #### L ACT #### [facility] [address] [place] [address] Dr. Pratibha Stevenson IG % 0.1 % Normal 0.0-0.5 [facility] Comment on above: Performed By: #### L ACT #### [facility] [address] [place] [address] Dr. Pratibha Stevenson LYMPH # 2.0 103/ul Normal 1.2-3.8 [facility] Comment on above: Performed By: #### L ACT #### [facility] [address] [place] [address] Dr. Pratibha Stevenson Lymphocytes/100 WBC (Bld) 28.8 % Normal 20.5-60.0 [facility] Comment on above: Performed By: #### L ACT #### [facility] [address] [place] [address] Dr. Pratibha Stevenson MANUAL DIFF REQ NO Normal [facility] Comment on above: Performed By: #### L ACT #### [facility] [address] [place] [address] Dr. Pratibha Stevenson MCH (RBC) [Entitic mass] 31.3 pg Normal 25.9-34.0 [facility] Comment on above: Performed By: #### L ACT #### [facility] [address] [place] [address] Dr. Pratibha Stevenson MCHC (RBC) [Mass/Vol] 34.0 g/dL Normal 29.9-35.2 [facility] Comment on above: Performed By: #### L ACT #### [facility] [address] [place] [address] Dr. Pratibha Stevenson MCV (RBC) [Entitic vol] 92.2 fL Normal 80.0-94.0 [facility] Comment on above: Performed By: #### L ACT #### [facility] [address] [place] [address] Dr. Pratibha Stevenson MONO # 0.3 103/ul Normal 0.3-0.8 [facility] Comment on above: Performed By: #### L ACT #### [facility] [address] [place] [address] Dr. Pratibha Stevenson Monocytes/100 WBC (Bld) 4.3 % Normal 1.7-12.0 [facility] Comment on above: Performed By: #### L ACT #### [facility] [address] [place] [address] Dr. Pratibha Stevenson NEUT # 4.5 103/ul Normal 1.4-6.5 [facility] Comment on above: Performed By: #### L ACT #### [facility] [address] [place] [address] Dr. Pratibha Stevenson Neutrophils/100 WBC (Bld) 64.1 % Normal 43.0-75.0 [facility] Comment on above: Performed By: #### L ACT #### [facility] [address] [place] [address] Dr. Pratibha Stevenson Platelet mean volume (Bld) [Entitic vol] 10.3 fL Normal 9.5-13.5 [facility] Comment on above: Performed By: #### L ACT #### [facility] [address] [place] [address] Dr. Pratibha Stveenson PLT 219 103/ul Normal 150-450 [facility] Comment on above: Performed By: #### L ACT #### [facility] [address] [place] [address] Dr. Pratibha Stevenson RBC 4.98 106/ul Normal 4.70-6.10 [facility] Comment on above: Performed By: #### L ACT #### [facility] [address] [place] [address] Dr. Pratibha Stevenson WBC 7.1 103/ul Normal 4.0-11.0 [facility] Comment on above: Performed By: #### L ACT #### [facility] [address] [address] [address] ABD/PELV W CONon [...] YING WALTON Date: 2022-07-22 23:53 Normal [facility] DRUG SCREEN RAPID (URINE)on 07-23-2022 AMP Negative Normal NEGATIVE [facility] Comment on above: Performed By: #### E RUR #### [facility] [address] [place] [address] Dr. Pratibha Stevenson [facility] Negative Normal NEGATIVE [facility] Comment on above: Performed By: #### E RUR #### [facility] [address] [address] [address] Pratibha Stevenson [facility] Negative Normal NEGATIVE [facility] Comment on above: Performed By: #### E RUR #### [facility] [address] [place] [address] Dr. Pratibha Stevenson BZO Negative Normal NEGATIVE [facility] Comment on above: Performed By: #### E RUR #### [facility] [address] [place] [address] Dr. Pratibha Stevenson EMELY Negative Normal NEGATIVE [facility] Comment on above: Performed By: #### E RUR #### [facility] [address] [place] [address] Dr. Pratibha Stevenson CUT-OFFS SEE BELOW Normal [facility] Comment on above: Result Comment: [...] ng/mL Performed By: #### E RUR #### [facility] [address] [place] [address] Dr. Pratibha Stevenson DRUG CUT HEADER DRUG CLASS TEST SYST EM CUT-OFF CONCENTRATIONS ARE FOLLOWS: Normal [facility] Comment on above: Performed By: #### E RUR #### [facility] [address] [place] [address] Dr. Pratibha Stevenson mAMP Negative Normal NEGATIVE [facility] Comment on above: Performed By: #### E RUR #### [facility] [address] [place] [address] Dr. Pratibha Stevenson MTD Negative Normal NEGATIVE [facility] Comment on above: Performed By: #### E RUR #### [facility] [address] [place] [address] Dr. Pratibha Stevenson OPI Positive Abnormal NEGATIVE [facility] Comment on above: Performed By: #### E RUR #### [facility] [address] [place] [address] Dr. Pratibha Stevenson OXY Negative Normal NEGATIVE [facility] Comment on above: Performed By: #### E RUR #### [facility] [address] [place] [address] Dr. Pratibha Stevenson PCP Negative Normal NEGATIVE [facility] Comment on above: Performed By: #### E RUR #### [facility] [address] [place] [address] Dr. Pratibha Stevenson PPX Negative Normal NEGATIVE [facility] Comment on above: Performed By: #### E RUR #### [facility] [address] [place] [address] Dr. Pratibha Stevenson TCA Positive Abnormal NEGATIVE [facility] Comment on above: Performed By: #### E RUR #### [facility] [address] [place] [address] Dr. Pratibha Stevenson THC Positive Abnormal NEGATIVE [facility] Comment on above: Performed By: #### E RUR #### [facility] [address] [place] [address] Dr. Pratibha Stevenson ER URINE PROFILEon 3 Bilirubin Ql (U) Negative Normal NEGATIVE [facility] Comment on above: Performed By: #### E RUR #### [facility] [address] [place] [address] Dr. Pratibha Stevenson Clarity (U) CLEAR Normal CLEAR [facility] Comment on above: Performed By: #### E RUR #### [facility] [address] [place] [address] Dr. Pratibha Stevenson Color (U) LT. YELLOW Normal YELLOW [facility] Comment on above: Performed By: #### E RUR #### [facility] [address] [place] [address] Dr. Pratibha RIOS A micrscopic examination will be performed if indicated. Normal [facility] Comment on above: Performed By: #### E RUR #### [facility] [address] [place] [address] Dr. Pratibha Stevenson Glucose Ql (U) Negative Normal NEGATIVE [facility] Comment on above: Performed By: #### E RUR #### [facility] [address] [place] [address] Dr. Pratibha Stevenson Hemoglobin Ql (U) Negative Normal NEGATIVE [facility] Comment on above: Performed By: #### E RUR #### [facility] [address] [place] [address] Dr. Pratibha Stevenson Ketones Ql (U) Negative Normal NEGATIVE [facility] Comment on above: Performed By: #### E RUR #### [facility] [address] [place] [address] Dr. Pratibha Stevenson LEUKOCYTES Negative Normal NEGATIVE [facility] Comment on above: Performed By: #### E RUR #### [facility] [address] [place] [address] Dr. Pratibha Stevenson Nitrite Ql (U) Negative Normal NEGATIVE [facility] Comment on above: Performed By: #### E RUR #### [facility] [address] [place] [address] Dr. Pratibha Stevenson pH (U) 5.5 [pH] Normal 5-9 [facility] Comment on above: Performed By: #### E RUR #### [facility] [address] [place] [address] Dr. Pratibha Stevenson SPEC GRAVITY <=1.005 Abnormal 1.005-<=1.025 [facility] Comment on above: Performed By: #### E RUR #### [facility] [address] [place] [address] Dr. Pratibha Stevenson UA PROTEIN Negative Normal NEGATIVE/ TRACE [facility] Comment on above: Performed By: #### E RUR #### [facility] [address] [place] [address] Dr. Pratibha Stevenson UR MICRO IND NOT INDICATED Normal [facility] Comment on above: Performed By: #### E RUR #### [facility] [address] [place] [address] Dr. Pratibha Stevenson Urobilinogen Qn (U) 0.2 {Butch'U}/dL Normal 0.2 - 1. 0 [facility] Comment on above: Performed By: #### E RUR #### [facility] [address] [place] [address] Dr. Pratibha Stevenson LIPASEon 07-23-2022 Lipase [Catalytic activity/Vol] 126.0 U/L Normal 73.0-393.0 [facility] Comment on above: Performed By: #### E RUR #### [facility] [address] [place] [address] Dr. Pratibha Stevenson PROF 14(COMP METB)on 023 Albumin [Mass/Vol] 4.2 g/dL Normal 3.4-5.0 [facility] Comment on above: Performed By: #### E RUR #### [facility] [address] [place] [address] Dr. Pratibha Stevenson Albumin/Globulin [Mass ratio] 1.4 {ratio} Normal [facility] Comment on above: Performed By: #### E RUR #### [facility] [address] [place] [address] Dr. Pratibha Stevenson ALP [Catalytic activity/Vol] 87 U/L Normal 46-116 [facility] Comment on above: Performed By: #### E RUR #### [facility] [address] [place] [address] Dr. Pratibha Stevenson ALT [Catalytic activity/Vol] 20 U/L Normal 16-63 [facility] Comment on above: Performed By: #### E RUR #### [facility] [address] [place] [address] Dr. Pratibha Stevenson Anion gap [Moles/Vol] 12.8 mmol/L Normal [facility] Comment on above: Performed By: #### E RUR #### [facility] [address] [place] [address] Dr. Pratibha Stevenson AST [Catalytic activity/Vol] 18 U/L Normal 15-37 [facility] Comment on above: Performed By: #### E RUR #### [facility] [address] [place] [address] Dr. Pratibha Stevenson Bilirubin [Mass/Vol] 0.5 mg/dL Normal 0.2-1.0 [facility] Comment on above: Performed By: #### E RUR #### [facility] [address] [place] [address] Dr. Pratibha Stevenson Calcium [Mass/Vol] 9.2 mg/dL Normal 8.5-10.1 [facility] Comment on above: Performed By: #### E RUR #### [facility] [address] [address] [address] Pratibha Stevenson Chloride [Moles/Vol] 101 mmol/L Normal 98-107 [facility] Comment on above: Performed By: #### E RUR #### [facility] [address] [place] [address] Dr. Pratibha Stevenson CO2 [Moles/Vol] 24.7 mmol/L Normal 21.0-32.0 [facility] Comment on above: Performed By: #### E RUR #### [facility] [address] [place] [address] Dr. Pratibha Stevenson Creatinine [Mass/Vol] 1.20 mg/dL Normal 0.70-1.30 [facility] Comment on above: Performed By: #### E RUR #### [facility] [address] [place] [address] Dr. Pratibha Stevenson EGFR-AF GIBRALTARIAN >60 Normal >=60 [facility] Comment on above: Performed By: #### E RUR #### [facility] [address] [place] [address] Dr. Pratibha Stevenson EGFR-NON AF GIBRALTARIAN >60 Normal >=60 [facility] Comment on above: Performed By: #### E RUR #### [facility] [address] [place] [address] Dr. Pratibha Stevenson Globulin (S) [Mass/Vol] 3.1 g/dL Normal [facility] Comment on above: Performed By: #### E RUR #### [facility] [address] [place] [address] Dr. Pratibha Stevenson Glucose [Mass/Vol] 128 mg/dL Critically high 74-[address] [facility] Comment on above: Performed By: #### E RUR #### [facility] [address] [place] [address] Dr. Pratibha Stevenson Potassium [Moles/Vol] 3.5 mmol/L Normal 3.5-5.1 [facility] Comment on above: Performed By: #### E RUR #### [facility] [address] [place] [address] Dr. Pratibha Stevenson Protein [Mass/Vol] 7.3 g/dL Normal 6.4-8.2 [facility] Comment on above: Performed By: #### E RUR #### [facility] [address] [place] [address] Dr. Pratibha Stevenson Sodium [Moles/Vol] 135 mmol/L Critically low 136-145 [facility] Comment on above: Performed By: #### E RUR #### [facility] [address] [place] [address] Dr. Pratibha Stevenson Urea nitrogen [Mass/Vol] 10.0 mg/dL Normal 7.0-18.0 [facility] Comment on above: Performed By: #### E RUR #### [facility] [address] [place] [address] Dr. Pratibha Stevenson Urea nitrogen/Creatinine [Mass ratio] 8.3 mg/mg Normal [facility] Comment on above: Performed By: #### E RUR #### [facility] [address] [place] [address] Dr. Pratibha Stevenson Screenson 07-22-2022 Screens [id number]#1. 00CD:127 Normal [facility] Screens [id number]#1. 00CD:127 Normal [facility] Patient Educationon 07-22-19 Patient Education Urology Dietary [...] Rhubarb. ? Beets. ? Potato chips and austrian fries. ? Nuts. ? If you regularly take a diuretic medicine, make sure to eat at least 1?2 fruits or vegetables high in potassium each day. These include: ? Avocado. ? Banana. ? Mingo, prune, carrot, or tomato juice. ? Baked [...] loco (more content not included)... Normal [facility] Urology Office/Clinic Noteon 07-21-2022 Urology Office/Clinic Note Chief Complaint pt here for a hospital f/u for kidney stones HPI Staff Pt is a 31 yr old Male here today for a hospital f/u from [facility] for a kidney stone. CT scan done 07/20/22 shows Bilateral nonobstructive renal calculi. No hydronephrosis or hydroureter hepatomegaly. Pts previous DX: kidney stone, ureteral stone. IPSS 26. Pt states he started feeling pain on Monday in the right upper back area and presented to the ER on Monday. Pt had CT scans done at [facility]. Pt states the pain is now moving [...] of urinary calculi) Urology consult 05/08/22 at [facility] due to 4-5 mm Ureteral Stone [...] calculus (05/08/2022) (more content not included)... Normal [facility] Comment on above: Result Comment: Elec tronically Signed By: Shirley Murrell MD\.br\Date and Time Signed: 07/21/22 16:55 EDT\.br\Electronically Co-Signed By: Shalini Macias\.br\Date and Time Co-Signed: 07/21/22 09:40 EDT CBC AUTO DIFFon 07-20-2022 BASO # 0.1 103/ul Normal 0.0-0.1 [facility] Comment on above: Performed By: #### C BC #### [facility] [address] [address] [address] Pratibha Stevenson Basophils/100 WBC (Bld) 0.7 % Normal 0.2-2.0 [facility] Comment on above: Performed By: #### C BC #### [facility] [address] [place] [address] Dr. Pratibha Stevenson EO # 0.2 103/ul Normal 0.0-0.7 [facility] Comment on above: Performed By: #### C BC #### [facility] [address] [place] [address] Dr. Pratibha Stevenson Eosinophils/100 WBC (Bld) 2.4 % Normal 0.9-7.0 [facility] Comment on above: Performed By: #### C BC #### [facility] [address] [place] [address] Dr. Pratibha Stevenson Erythrocyte distribution width (RBC) [Ratio] 12.4 % Normal 11.0-15.0 [facility] Comment on above: Performed By: #### C BC #### [facility] [address] [place] [address] Dr. Pratibha Stevenson Hematocrit (Bld) [Volume fraction] 45.8 % Normal 42.0-54.0 [facility] Comment on above: Performed By: #### C BC #### [facility] [address] [place] [address] Dr. Pratibha Stevenson Hemoglobin (Bld) [Mass/Vol] 15.6 g/dL Normal 14.0-18.0 [facility] Comment on above: Performed By: #### C BC #### [facility] [address] [place] [address] Dr. Pratibha Stevenson IG # 0.03 10e3/ul Normal 0.00-0.03 [facility] Comment on above: Performed By: #### C BC #### [facility] [address] [place] [address] Dr. Pratibha Stevenson IG % 0.4 % Normal 0.0-0.5 [facility] Comment on above: Performed By: #### C BC #### [facility] [address] [place] [address] Dr. Pratibha Stevenson LYMPH # 3.0 103/ul Normal 1.2-3.8 [facility] Comment on above: Performed By: #### C BC #### [facility] [address] [place] [address] Dr. Pratibha Stevenson Lymphocytes/100 WBC (Bld) 34.7 % Normal 20.5-60.0 [facility] Comment on above: Performed By: #### C BC #### [facility] [address] [place] [address] Dr. Pratibha Stevenson MANUAL DIFF REQ NO Normal [facility] Comment on above: Performed By: #### C BC #### [facility] [address] [place] [address] Dr. Pratibha Stevenson MCH (RBC) [Entitic mass] 31.3 pg Normal 25.9-34.0 [facility] Comment on above: Performed By: #### C BC #### [facility] [address] [place] [address] Dr. Pratibha Stevenson MCHC (RBC) [Mass/Vol] 34.1 g/dL Normal 29.9-35.2 [facility] Comment on above: Performed By: #### C BC #### [facility] [address] [place] [address] Dr. Pratibha Stevenson MCV (RBC) [Entitic vol] 92.0 fL Normal 80.0-94.0 [facility] Comment on above: Performed By: #### C BC #### [facility] [address] [place] [address] Dr. Pratibha Stevenson MONO # 0.5 103/ul Normal 0.3-0.8 [facility] Comment on above: Performed By: #### C BC #### [facility] [address] [place] [address] Dr. Pratibha Stevenson Monocytes/100 WBC (Bld) 5.9 % Normal 1.7-12.0 [facility] Comment on above: Performed By: #### C BC #### [facility] [address] [place] [address] Dr. Pratibha Stevenson NEUT # 4.8 103/ul Normal 1.4-6.5 [facility] Comment on above: Performed By: #### C BC #### [facility] [address] [place] [address] Dr. Pratibha Stevenson Neutrophils/100 WBC (Bld) 55.9 % Normal 43.0-75.0 [facility] Comment on above: Performed By: #### C BC #### [facility] [address] [place] [address] Dr. Pratibha Stevenson Platelet mean volume (Bld) [Entitic vol] 10.0 fL Normal 9.5-13.5 [facility] Comment on above: Performed By: #### C BC #### [facility] [address] [place] [address] Dr. Pratibha Stevenson PLT 243 103/ul Normal 150-450 [facility] Comment on above: Performed By: #### C BC #### [facility] [address] [place] [address] Dr. Pratibha Stevenson RBC 4.98 106/ul Normal 4.70-6.10 [facility] Comment on above: Performed By: #### C BC #### [facility] [address] [place], [place] [id number] Dr. Pratibha Stevenson WBC 8.5 103/ul Normal 4.0-11.0 [facility] Comment on above: Performed By: #### C BC #### [facility] [address] [place], [place] [id number] Dr. Pratibha Stevenson CT ABD/PELVIS WO CONon [...] ROSALINO VIDALES Date: 2022-07-20 04:12 Normal [facility] ER URINE PROFILEon 3 Bilirubin Ql (U) Negative Normal NEGATIVE [facility] Comment on above: Performed By: #### L ACT #### [facility] [address] [place] [address] Dr. Pratibha Stevenson Clarity (U) CLEAR Normal CLEAR [facility] Comment on above: Performed By: #### L ACT #### [facility] [address] [place] [address] Dr. Pratibha Stevenson Color (U) LT. YELLOW Normal YELLOW [facility] Comment on above: Performed By: #### L ACT #### [facility] [address] [place] [address] Dr. Pratibha Stevenson ERUAHD A micrscopic examination will be performed if indicated. Normal [facility] Comment on above: Performed By: #### L ACT #### [facility] [address] [place] [address] Dr. Pratibha Stevenson Glucose Ql (U) Negative Normal NEGATIVE [facility] Comment on above: Performed By: #### L ACT #### [facility] [address] [place] [address] Dr. Pratibha Stevenson Hemoglobin Ql (U) Negative Normal NEGATIVE [facility] Comment on above: Performed By: #### L ACT #### [facility] [address] [place] [address] Dr. Pratibha Stevenson Ketones Ql (U) Negative Normal NEGATIVE [facility] Comment on above: Performed By: #### L ACT #### [facility] [address] [place] [address] Dr. Pratibha Stevenson LEUKOCYTES Negative Normal NEGATIVE [facility] Comment on above: Performed By: #### L ACT #### [facility] [address] [place] [address] Dr. Pratibha Stevenson Nitrite Ql (U) Negative Normal NEGATIVE [facility] Comment on above: Performed By: #### L ACT #### [facility] [address] [place] [address] Dr. Pratibha Stevenson pH (U) 6.0 [pH] Normal 5-9 [facility] Comment on above: Performed By: #### L ACT #### [facility] [address] [place] [address] Dr. Pratibha Stevenson SPEC GRAVITY <=1.005 Abnormal 1.005-<=1.025 [facility] Comment on above: Performed By: #### L ACT #### [facility] [address] [place] [address] Dr. Pratibha Stevenson UA PROTEIN Negative Normal NEGATIVE/ TRACE [facility] Comment on above: Performed By: #### L ACT #### [facility] [address] [place] [address] Dr. Pratibha Stevenson UR MICRO IND NOT INDICATED Normal [facility] Comment on above: Performed By: #### L ACT #### [facility] [address] [place] [address] Dr. Pratibha Stevenson Urobilinogen Qn (U) 0.2 {Butch'U}/dL Normal 0.2 - 1. 0 [facility] Comment on above: Performed By: #### L ACT #### [facility] [address] [place] [address] Dr. Pratibha Stevenson LACTATE/LACTIC ACIDon 2022 Lactate [Moles/Vol] 0.8 mmol/L Normal 0.4-2.0 [facility] Comment on above: Performed By: #### L ACT #### [facility] [address] [place] [address] Dr. Pratibha Stevenson PROF 14(COMP METB)on 023 Albumin [Mass/Vol] 4.3 g/dL Normal 3.4-5.0 [facility] Comment on above: Performed By: #### E RUR #### [facility] [address] [place] [address] Dr. Pratibha Stevenson Albumin/Globulin [Mass ratio] 1.3 {ratio} Normal [facility] Comment on above: Performed By: #### E RUR #### [facility] [address] [place] [address] Dr. Pratibha Stevenson ALP [Catalytic activity/Vol] 94 U/L Normal 46-116 [facility] Comment on above: Performed By: #### E RUR #### [facility] [address] [place] [address] Dr. Pratibha Stevenson ALT [Catalytic activity/Vol] 23 U/L Normal 16-63 [facility] Comment on above: Performed By: #### E RUR #### [facility] [address] [place] [address] Dr. Pratibha Stevenson Anion gap [Moles/Vol] 10.5 mmol/L Normal [facility] Comment on above: Performed By: #### E RUR #### [facility] [address] [place] [address] Dr. Pratibha Stevenson AST [Catalytic activity/Vol] 21 U/L Normal 15-37 [facility] Comment on above: Performed By: #### E RUR #### [facility] [address] [place] [address] Dr. Pratibha Stevenson Bilirubin [Mass/Vol] 0.5 mg/dL Normal 0.2-1.0 [facility] Comment on above: Performed By: #### E RUR #### [facility] [address] [place] [address] Dr. Pratibha Stevenson Calcium [Mass/Vol] 9.3 mg/dL Normal 8.5-10.1 [facility] Comment on above: Performed By: #### E RUR #### [facility] [address] [place] [address] Dr. Pratibha Stevenson Chloride [Moles/Vol] 102 mmol/L Normal 98-107 [facility] Comment on above: Performed By: #### E RUR #### [facility] [address] [place] [address] Dr. Pratibha Stevenson CO2 [Moles/Vol] 26.2 mmol/L Normal 21.0-32.0 [facility] Comment on above: Performed By: #### E RUR #### [facility] [address] [address] [address] Pratibha Stevenson Creatinine [Mass/Vol] 1.18 mg/dL Normal 0.70-1.30 [facility] Comment on above: Performed By: #### E RUR #### [facility] [address] [address] [address] Pratibha Stevenson EGFR-AF GIBRALTARIAN >60 Normal >=60 [facility] Comment on above: Performed By: #### E RUR #### [facility] [address] [place] [address] Dr. Pratibha Stevenson EGFR-NON AF GIBRALTARIAN >60 Normal >=60 [facility] Comment on above: Performed By: #### E RUR #### [facility] [address] [place] [address] Dr. Pratibha Stevenson Globulin (S) [Mass/Vol] 3.2 g/dL Normal [facility] Comment on above: Performed By: #### E RUR #### [facility] [address] [place] [address] Dr. Pratibha Stevenson Glucose [Mass/Vol] 115 mg/dL Critically high 74-[address] [facility] Comment on above: Performed By: #### E RUR #### [facility] [address] [place] [address] Dr. Pratibha Stevenson Potassium [Moles/Vol] 3.7 mmol/L Normal 3.5-5.1 [facility] Comment on above: Performed By: #### E RUR #### [facility] [address] [place] [address] Dr. Pratibha Stevenson Protein [Mass/Vol] 7.5 g/dL Normal 6.4-8.2 [facility] Comment on above: Performed By: #### E RUR #### [facility] [address] [place] [address] Dr. Pratibha Stevenson Sodium [Moles/Vol] 135 mmol/L Critically low 136-145 [facility] Comment on above: Performed By: #### E RUR #### [facility] [address] [place], [place] [address] Dr. Pratibha Stevenson Urea nitrogen [Mass/Vol] 11.0 mg/dL Normal 7.0-18.0 [facility] Comment on above: Performed By: #### E RUR #### [facility] [address] [place], [place] [address] Dr. Pratibha Stevenson Urea nitrogen/Creatinine [Mass ratio] 9.3 mg/mg Normal [facility] Comment on above: Performed By: #### E RUR #### [facility] [address] [address] [address] Pratibha Stevenson TROPONIN, HIGH SENSITIVITYon 07-20-2022 HSTROP 5.0 pg/mL Normal 4.0-76.1 [facility] Comment on above: Result Comment: CUT- OFF POINTS HAVE BEEN ESTABLISHED BASED ON THE FOURTH UNIVERSAL DEFINITIONS OF MYOCARDIAL INFARCTION. THE UPPER REFERENCE LIMIT (URL) OF TROPONIN, DEFINED THE 99TH PERCENTILE OF cTnI DISTRIBUTION IN A REFERENCE POPULATION, HAS BEEN CONFIRMED THE DECISION THRESHOLD FOR IA DIAGNOSIS. Performed By: #### E RUR #### [facility] [address] [address] [address] Pratibha Stevenson Formson 07-15-2022 Forms [id number]#1.0 0CD:127 Normal [facility] Screenson 07-15-2022 Screens [id number] 0CD:127 Normal [facility] Screens [id number] 0CD:127 Normal [facility] Patient Educationon 07-14-19 Patient Education Urology Dietary [...] Rhubarb. ? Beets. ? Potato chips and austrian fries. ? Nuts. ? If you regularly take a diuretic medicine, make sure to eat at least 1?2 fruits or vegetables high in potassium each day. These include: ? Avocado. ? Banana. ? Mingo, prune, carrot, or tomato juice. ? Baked [...] (more content not included)... Normal [place] [facility] Urology Office/Clinic Noteon 07-13-2022 Urology Office/Clinic Note Chief Complaint Pt is here for PO stent removal HPI Staff Ethan is a 31 y.o. male new patient here for [facility] ER follow up. Urology consult done 05/08/22 @ [facility] due to 4-5mm Ureteral Stone. S/P Lt [...] yo male new patient following up to [facility] ER. IPSS 13. MARGOTH 14. 1. Ureteral stone (N20.1: Calculus of ureter) Urology consult 05/08/22 at [facility] due to 4-5 mm Ureteral Stone [...] 12/26/1997 Recor (more content not included)... Normal [facility] Comment on above: Result Comment: Elec tronically Signed By: Shirley Murrell MD\.br\Date and Time Signed: 07/13/22 16:53 EDT\.br\Electronically Co-Signed By: Shalini Macias.br\Date and Time Co-Signed: 07/13/22 10:29 EDT RAD - MISCon 07-11-2022 RAD - MISC [id number]#1.0 0CD:127 Normal [facility] RAD - Ultrasound Reporton RAD - Ultrasound Report [id number]#1.0 0CD:127 Normal [facility] US KIDNEYSon 07-06-2022 US KIDNEYS EXAMINATION: US [...] by: RAMO BLAKE Date: 2022-07-06 11:14 Normal [facility] XR KUB 1 VIEWon 07-06-2022 [...] by: SAUMYA MARSH Date: 2022-07-06 11:57 Normal [facility] Coding Summary.on 05-30-2022 Coding Summary. CD:[id number] Gh 0bWw+PGhlYWQ+KU3QYMJkE 24ncNWqqB2TJ6zHMF2SSWS ZJHTSXT9EOC5ofKN4ZTiiI 2VybiAv NkhclBKuFK13DOx9LPS5oE zwYEtynH0hfWRaB7w4SoNc NK27xU54KNdgXWPzKvP4My ZpbjsgbWFy X4voOnTmwBNePqa+PHRhYm xlIHdpZHRoPScxMDAlJyBz pRnmNE5jMi1pCKUrVTGozR xhcHNlOiBj x5tqEVMjUJdmJB2ovMukE6 TpuQL4TINbm4y2Ha31pYC+ VGJgFFD9nWjbDReug666Np Ldu8tbBVU3 mKNeDWbrOZB9U76jk3Q0CN UbAUKiCVP1hJD0eE1kxRvq ebgzQ9ZdqCFeXdE7PKA1zY XiqW7wtPya tgqigD9zGrz+J11MEU7ONB GQFJ8HXme8W7DfNglacFK+ RU12SLAvNG79dDSctIHmh8 wqwDp7EuVc HIAkTFN2bYfrQExag5BpJF YvC51akHSov7T0MLMbnBhq jNQiCiOexAX6jE6zQWavwp bad4esbwmu Iembv9hufr86eW98A97pES soTAGaCCS3NSGwPYEaxBll eh5dcH6vIz6+QGgpv9ehp6 ytsFf4DeLu AQNjibHqfXucLOF5i6VwCa 91M1FnsEwvm9SmDrr3pv60 mIVyx2Z9zDE9FSsuCIOfnW 1bYBniWxI0 TAViHcQkqA02zWQuCHhrPi 8msOqxzZnaTY7mWEGrqkqt WEZxgI7qHCKjhTEpcWgeJC 4wNTBpbjtm o670ClGfJHE6YYMlsSSdO4 BjkB6uKqDpGXKxNTWeI0Yf xVIwHCahZ636DRoxDeG1MS WyzoEwJ2Vl HSIqeEcyRmL1z2L8Nc2Or0 GdughrTFJ5GBsoIVQzYgFl WdAzMdU0Z2JfIvp3DMTeuZ xkWY4rP6Xr CKXiebfxpoqcfJN6CXObID SwiB77dVKiJLapIe3mo9C1 o655UISoEEJvxN51Te3nqQ ogMTBwdCBU eZ3tmmlxz7wzoyjbBbNbQW AdKCn1VMp6QZWjgLhqWlUu YMZ7JqV9ZZQ8nXNgeC6rpP thwjhloN2v Oyc+Y18lyY8lIYX1GJL7fs ptQKWveqGjYH23BC75R3Yw PjwvdGFibGU+PGRpdiBzdH kvTH7sNwCh u7uwl6JzFPdtC8PeCPZsPQ jnXuj4KTSgNPK1eLA7sU6q TTPiWTzrg5X7pXZ2O7Wyuy Thte8il9yp EIAhUYdcX00igSAmo4L5QR TqbRC1QSRjoJluEkEjtG05 Oyc+GIHqoTczu2PtRfrvh4 fvp6waaMi7 FgDgEEPshxXhcYkhSKP7l2 BjAi99P73uLWdcUGCeMZLv DYNqRLGntRgjui4tsS1zZi 8+PGNvbCB3 fAP4gC3hUCSbEqY3UXniU4 71XhMtvWNlPaihk4acl8pm rAj5DkBfBXVpidVdoQmtSZ L1u6NbDk67 H90pZCxxSCThEIUgJNDaNC RzbFnule6fmU9oEc6+PC9j l8hjaj42uD83iCW+PHRkIH E3uGjnEVhu DKSabF6wIBhuAsJ4CUUlTt KpnA76sKLyLRaaAz6mgDkw tMfeSG1vZCGnmvxuj602Hb Aen7mnFJRs gHNsVSrxJRJ7Y78ev6X3KF IiKSCePZP5uOH4lB5yfVdk bjogbGVmdDsgdmVydGljYW vbTQcbO957 IHRvcDsnPlBhdGllbnQgTm XjJLb5C1BuDgy4GEIulByu AU1ejGRgTFlyAf1ihYqgmT xlUX8oAWZo fuote475ZuHlp3ghKOAadF DnBDpcOIJ8N81fe9F4EWWe AMVaGIX2mFS5bF8fxXfbqd ogbGVmdDsg spIwsBxvDLveDYvyI336XH RvcDsnPkJpcnRoIERhdGU6 PT26SD99wIFln8S5fNH7J2 BhZGRpbmct zwovhEO9YRVhYTTftA96Dl 5njHecGm5jRMVsAXY4LOFo gHNkF0SqvP3uGrVjMRVxVX LpV3KjnFKr NEaqR188KOgdDbX1KYJjxv FtV0GiKUHydXpgBhV8l0I9 Rs5TM9H2UV40LM15hGTtm3 V4wPY2V0Iz VRLxjplwsmcgmHZ4BPIqJR ZewF96Pj5pfXxnRb0jJEOs ZUY8ELHisBWgA9CnfM8uYu AjMDAwMDAw T1IujOTxDMahH942VWpiSc V9TCIbvmPxR7RbROSkcRxz DqZ4r7A3Ft2XRLs5KZ44MN 32uLPld4Z5 tFW7Y7IeLYCdwwvovzvjvP V2OEIrVTRzuC24Jf1tnCsm Nj8kBFMlHKL3NHCyyLRkP7 UyaY0lGvLl QYAyIIHmG9HmqSLdMRdrH4 88UWqaYrH0MAInotMjX3Fz UDYsdUyaXuG0c4E8Ic6WMS UzEX30QNM1 wZT3VG60JV63G8WdBjojbB FibGU+PHRhYmxlIHdpZHRo GNuuAXPbXtHfxTihNE0gHm 9yZGVyLWNv fBjrzEMdYaFqp5boLRWeHM ryOE5kuEysY2RkhBV6FPZr x1f3Dj40V27sR2EyiZP+PG UjcLP9aYB2 zW9mRuOdFtZ8SXxlH828Au EjiUNlZmceu8ssm9ikhAf6 YxX4QBRqhrUetUhsKFV4h6 WhRm31S48e IHdpZHRoPSIxNSUiIHZhbG qmjm0yoU3tYw2+PGNvbCB3 sHA6fG9fXmNoOjI1RDznT2 49InRvcCIv Qkxfe9nka7rygPh3GnLkSC OtwlYbyKejLFT7z8XkJp66 N4TcjTerr4GjAou8td92eW Ovs9C6lPC4 J5DwGIFchbzqjDZhjNcnSB 7eDZHsawtgPGPweE0tHJUv K4c9OuDtWaR7WLtlS0Akmu O0XRHqwIOp XFeyKMK0D29ar5G5TAVrVZ FtTPJ4jFH3dY2ewAmtufew bGVmdDsgdmVydGljYWwtYW akG800VICb eIagSLDhbB1rGCWwjNHkwK raAZ9qXRAzyldiCvQIAYPN GhppKGSFE34qOQvphTG+PH WcOOE0iTaw ECmePBPjpA2tLLJvI2l5Iq ScBkT9UCbaL9WbTWZwfcnj Uk86eU5sJjQhNoE3GWmsF4 RxbyX5RYRv aROtIPsfHZN3C04pf1S7RF GiPSQxHNX8eVF2iO8aaCcg bjogbGVmdDsgdmVydGljYW uqCOetB201 UNVggSjzMqW7VvL6DdN1GX Q3M3LfLmv5UTAfoMwpJZ9f eANjHXooKs8raDnoaCcyPP 4wNTBpbjtw ZPNqmO7fKKChqIKofZsyHK 8hRXSzomrlb246RvRsSPH2 JISfhXAgX7LniS4jXaAfOB MaZWFaQ0Pp eSBsPJsaB627NYztSaW6HJ OlkbEdK3RhBLBfzTzoTcA1 h0A8Zy5uJEKLIDQzyysswW Q+PHRkIHN0 gVstMEjvDQLtxL2uCGLqC2 v9YnQeIrH7WLnhP8HeTJXe vwzoAt77uV8cOnIjVkV1QB jnJ4IumsF4 RTQaaWKfNWajTLW7E48tc4 H6AKHkBJKiNQY4eXA3hO7b bGlnbjogbGVmdDsgdmVydG ljYWwtYWxp J674TQQbfSaeKb2xfRQ6F2 BuHds3ZCXgyLbaLH9vdKCp KHztOh8afOsczEdbTN7iCN BpbjtwYWRk lF6sNJTwnAHtdJcqCC5xXB Wanmypx577WcOhRNH7ZTGm xKWeB6UeaS4eXrLgJBNtGT IeB7UlzXUi ILfvG617RDueHyL3CDOcbr PnQ1TgIPCcqPqsXnS0a8B7 Dy9PkOBnXWQiPE34BA59EN 21D2GqGtmw dGFibGU+PHRhYmxlIHdpZH JeKXocOQMbToLimPxjGJ3j Nm5uDZZjRMAuvLvbkOWeQo Umf4tdKMQv CLxzWJ6clOsiN3GroBN4LI Xqh8n2Jz31G48iN7GieVR+ DRGrwUY1nJP5pR1tYrXyNb P0JWkxQ143 LcPcvXCxQkcfp8zqs5sihE g4ObAeTADmwdJbgNqnENP4 m5OtGb07A90gPNmoINBuNW IyMCUiIHZh kEmwwx8kfD4jXc7+PGNvbC Q5fXO6qC6jIoRfNyV4XOpw Y058VzGibGAgGjdpZ36gM7 JvdXA+PHRy Qko0SRMwiBnlLG4dkFDqIK gzVr2xHLL0WaRuIaAcVWng I2VkUFYpvdmdrddpqVE8HO UbLWXonK69 Em5odXgqSi7pARYiRLG6KC BktAXnD5UcvQ4qEcJqROUw KGWjZ5TctMQxVUyxR246VZ voIlG5KUHr utOjZ1AwJMHndJdzUrJ1o2 C2Hq7QyJdhnSTcPO3zUiVy RQy5I9TlLyj7KKWmuCevJG 0ncGFkZGlu Vr6hhLgwiMpaEY1nRWZzoo emh438NxEmw9mhPLOayDGq XBxhUCS1K20pm8Q7XKBiBY BsKII0dER6 tX1brOvbeagpwKOukFmocl VwgTflHKclCZylB064OZPe gGflKvAWIsg5U8CnYbj8NC RkpYtzVY0e wRXnHPkwTm1bdKnevTopZZ 0lNNOeoxygt014OnLxs8uo TMFseBOfPTxkBLK9F11ki6 L3ZIYbNQQj JPB1jAA5tY7rrOvijyebkT VmdDsgdmVydGljYWwtYWxp I194LHNoiFsbAj1LAmt4D2 WjLhe5NVMz cLepFF3pbYDeWWutIy1gdD jhjUdsEU2jTGTpmoclj345 FfMee6vzQAZboMUgRZzmPI U7M54pl8K4 VXJrTYLbHGU7pGC1gF5ueG lnbjogbGVmdDsgdmVydGlj GCnfLUvuB176KGRpnIweZo BheWVyOjwv dGQ+VY62kr86L0XpWakbPt j1VUFdCGS6jBE1zC7cSRWw RQyhb0G5hVW6O2CfyoUdhp 9es8axHZRp ZTog (more content not included)... Normal [facility] Operative Reporton 3 Operative Report Patient: AUDREY DONALD L Age: 31 years Sex: Male : 1990 Associated Diagnoses: None Author: Shirley Murrell MD Procedure Operative Information Details: Date/ Time: 05/23/2022 10:00:00. Pre-Op Dx: Kidney stone (PUP52-HG N20.0, Billing Diagnosis, Medical), Foreign Body in [...] serum labs and 24-hour urine . [facility] Comment on above: Result Comment: Elec tronically Signed By: Shirley Murrell MD\.br\Date and Time Signed: 05/27/22 17:07 EST Consent for Procedure/Surger yon 05-26-2022 Consent for Procedure/Surgery [id number]#1.0 0CD:127 [facility] IntraOperative Documentson 0 05-26-2022 IntraOperative Documents [id number]#1.0 0CD:127 [facility] Formson 05-24-2022 Forms [id number]#1.0 0CD:127 [facility] Consent for Treatmenton 05-02 Consent for Treatment [id number]#1.0 0CD:127 Normal [facility] Main OR Intraoperative Recor don 05-23-2022 Main OR Intraoperative Record IntraOp Document Type FTURO Summary Primary Physician: Shirley Murrell MD Finalized Date/Time: 05/23/22 10:14:49 Pt. Name: ETHAN DONALD Hannah Yoon/Sex: 1990 Male Med Rec #: [id number] Physician: Shirley Murrell MD Financial #: [id number] Pt. Type: O Room/Bed: / Admit/Disch: 05/23/22 [...] Nereida Cline Role Performed Surgeon - Primary Quality Control Engineering Technician - Primary Scrub - Primary Time In [...] Eason RN, Ruthann 05/23/22 10:14 Normal [facility] Main OR Preoperative Recordo n 05-23-2022 Main OR Preoperative Record Holding Area Document Type FTURO Summary Primary Physician: Shirley Murrell MD Finalized Date/Time: 05/23/22 10:11:23 Pt. Name: ETHAN DONALD Hannah Shook./Sex: 1990 Male Med Rec #: [id number] Physician: Shirley Murrell MD Financial #: [id number] Pt. Type: O Room/Bed: / Admit/Disch: 05/23/22 [...] Comment: difficulty voiding, not Skin Integrity Intact, [place], Warm, & feeling empty, pain in Dry [...] NICOLE Eason RN, Ruthann 05/23/22 10:11 Normal [facility] Insurance Correspondence Off iceon 05-17-2022 Insurance Correspondence Office [id number]#1. 00CD:127 Normal [facility] ED Note-Physicianon 05-14-19 ED Note-Physician [id number]#1.0 0CD:127 [facility] RAD - CT Reporton 05-14-2022 RAD - CT Report [id number]#1. 00CD:127 Normal [facility] RAD - CT Report [id number]#1. 00CD:127 Normal [facility] RAD - MISCon 05-14-2022 RAD - MISC [id number]#1. 00CD:127 Normal [facility] RAD - MISC [id number]#1. 00CD:127 Normal [facility] RAD - MISC [id number]#1. 00CD:127 Normal [facility] RAD - Ultrasound Reporton RAD - Ultrasound Report [id number]#1. 00CD:127 Normal [facility] AMYLASEon 05-12-2022 Amylase [Catalytic activity/Vol] 39 U/L Normal 25-115 [facility] Comment on above: Performed By: #### E RUR #### [facility] [address] [place] [address] Dr. Pratibha Stevenson CBC AUTO DIFFon 05-12-2022 BASO # 0.0 103/ul Normal 0.0-0.1 [facility] Comment on above: Performed By: #### L ACT #### [facility] [address] [place] [address] Dr. Pratibha Stevenson Basophils/100 WBC (Bld) 0.2 % Normal 0.2-2.0 [facility] Comment on above: Performed By: #### L ACT #### [facility] [address] [place] [address] Dr. Pratibha Stevenson EO # 0.0 103/ul Normal 0.0-0.7 [facility] Comment on above: Performed By: #### L ACT #### [facility] [address] [place] [address] Dr. Pratibha Stevenson Eosinophils/100 WBC (Bld) 0.0 % Critically low 0.9-7.0 [facility] Comment on above: Performed By: #### L ACT #### [facility] [address] [place] [address] Dr. Pratibha Stevenson Erythrocyte distribution width (RBC) [Ratio] 11.7 % Normal 11.0-15.0 [facility] Comment on above: Performed By: #### L ACT #### [facility] [address] [place] [address] Dr. Pratibha Stevenson Hematocrit (Bld) [Volume fraction] 43.0 % Normal 42.0-54.0 [facility] Comment on above: Performed By: #### L ACT #### [facility] [address] [place] [address] Dr. Pratibha Stevenson Hemoglobin (Bld) [Mass/Vol] 13.9 g/dL Critically low 14.0-18.0 [facility] Comment on above: Performed By: #### L ACT #### [facility] [address] [place] [address] Dr. Pratibha Stevenson IG # 0.03 10e3/ul Normal 0.00-0.03 [facility] Comment on above: Performed By: #### L ACT #### [facility] [address] [place] [address] Dr. Pratibha Stevenson IG % 0.3 % Normal 0.0-0.5 [facility] Comment on above: Performed By: #### L ACT #### [facility] [address] [place] [address] Dr. Pratibha Stevenson LYMPH # 0.8 103/ul Critically low 1.2-3.8 [facility] Comment on above: Performed By: #### L ACT #### [facility] [address] [place] [address] Dr. Pratibha Stevenson Lymphocytes/100 WBC (Bld) 8.6 % Critically low 20.5-60.0 [facility] Comment on above: Performed By: #### L ACT #### [facility] [address] [place] [address] Dr. Pratibha Stevenson MANUAL DIFF REQ NO Normal [facility] Comment on above: Performed By: #### L ACT #### [facility] [address] [place] [address] Dr. Pratibha Stevenson MCH (RBC) [Entitic mass] 31.0 pg Normal 25.9-34.0 [facility] Comment on above: Performed By: #### L ACT #### [facility] [address] [place] [address] Dr. Pratibha Stevenson MCHC (RBC) [Mass/Vol] 32.3 g/dL Normal 29.9-35.2 [facility] Comment on above: Performed By: #### L ACT #### [facility] [address] [place] [address] Dr. Pratibha Stevenson MCV (RBC) [Entitic vol] 96.0 fL Critically high 80.0-94.0 [facility] Comment on above: Performed By: #### L ACT #### [facility] [address] [place] [address] Dr. Pratibha Stevenson MONO # 0.4 103/ul Normal 0.3-0.8 [facility] Comment on above: Performed By: #### L ACT #### [facility] [address] [place] [address] Dr. Pratibha Stevenson Monocytes/100 WBC (Bld) 4.5 % Normal 1.7-12.0 [facility] Comment on above: Performed By: #### L ACT #### [facility] [address] [place] [address] Dr. Pratibha Stevenson NEUT # 8.4 103/ul Critically high 1.4-6.5 [facility] Comment on above: Performed By: #### L ACT #### [facility] [address] [place] [address] Dr. Pratibha Stevenson Neutrophils/100 WBC (Bld) 86.4 % Critically high 43.0-75.0 [facility] Comment on above: Performed By: #### L ACT #### [facility] [address] [place] [address] Dr. Pratibha Stevenson Platelet mean volume (Bld) [Entitic vol] 10.6 fL Normal 9.5-13.5 [facility] Comment on above: Performed By: #### L ACT #### [facility] [address] [place] [address] Dr. Pratibha Stevenson PLT 227 103/ul Normal 150-450 [facility] Comment on above: Performed By: #### L ACT #### [facility] [address] [place] [address] Dr. Pratibha Stevenson RBC 4.48 106/ul Critically low 4.70-6.10 [facility] Comment on above: Performed By: #### L ACT #### [facility] [address] [place] [address] Dr. Pratibha Stevenson WBC 9.7 103/ul Normal 4.0-11.0 [facility] Comment on above: Performed By: #### L ACT #### [facility] [address] [place] [address] Dr. Pratibha Stevenson Consent for Procedure/Surger yon 05-12-2022 Consent for Procedure/Surgery [id number]#1.0 0CD:127 Normal [facility] LIPASEon 05-12-2022 Lipase [Catalytic activity/Vol] 110.0 U/L Normal 73.0-393.0 [facility] Comment on above: Performed By: #### E RUR #### [facility] [address] [place] [address] Dr. Pratibha Stevenson Operative Reporton 3 Operative Report [id number]#1.0 0CD:127 Normal [facility] Operative Report [id number]#1.0 0CD:127 Normal [facility] Comment on above: Other Comment: SAMMI TAY PROF 14(COMP METB)on 023 Albumin [Mass/Vol] 3.3 g/dL Critically low 3.4-5.0 [facility] Comment on above: Performed By: #### E RUR #### [facility] [address] [place] [address] Dr. Pratibha Stevenson Albumin/Globulin [Mass ratio] 1.2 {ratio} Normal [facility] Comment on above: Performed By: #### E RUR #### [facility] [address] [place] [address] Dr. Pratibha Stevenson ALP [Catalytic activity/Vol] 68 U/L Normal 46-116 [facility] Comment on above: Performed By: #### E RUR #### [facility] [address] [place] [address] Dr. Pratibha Stevenson ALT [Catalytic activity/Vol] 27 U/L Normal 16-63 [facility] Comment on above: Performed By: #### E RUR #### [facility] [address] [place] [address] Dr. Pratibha Stevenson Anion gap [Moles/Vol] 10.4 mmol/L Normal [facility] Comment on above: Performed By: #### E RUR #### [facility] [address] [place] [address] Dr. Pratibha Stevenson AST [Catalytic activity/Vol] 25 U/L Normal 15-37 [facility] Comment on above: Performed By: #### E RUR #### [facility] [address] [address] [address] Pratibha Stevenson Bilirubin [Mass/Vol] 0.5 mg/dL Normal 0.2-1.0 [facility] Comment on above: Performed By: #### E RUR #### [facility] [address] [place] [address] Dr. Pratibha Stevenson Calcium [Mass/Vol] 8.8 mg/dL Normal 8.5-10.1 [facility] Comment on above: Performed By: #### E RUR #### [facility] [address] [place] [address] Dr. Pratibha Stevenson Chloride [Moles/Vol] 105 mmol/L Normal 98-107 [facility] Comment on above: Performed By: #### E RUR #### [facility] [address] [place] [address] Dr. Pratibha Stevenson CO2 [Moles/Vol] 26.5 mmol/L Normal 21.0-32.0 [facility] Comment on above: Performed By: #### E RUR #### [facility] [address] [place] [address] Dr. Pratibha Stevenson Creatinine [Mass/Vol] 1.15 mg/dL Normal 0.70-1.30 [facility] Comment on above: Performed By: #### E RUR #### [facility] [address] [place] [address] Dr. Pratibha Stevenson EGFR-AF GIBRALTARIAN >60 Normal >=60 [facility] Comment on above: Performed By: #### E RUR #### [facility] [address] [place] [address] Dr. Pratibha Stveenson EGFR-NON AF GIBRALTARIAN >60 Normal >=60 [facility] Comment on above: Performed By: #### E RUR #### [facility] [address] [place] [address] Dr. Pratibha Stevenson Globulin (S) [Mass/Vol] 2.7 g/dL Normal [facility] Comment on above: Performed By: #### E RUR #### [facility] [address] [place] [address] Dr. Pratibha Stevenson Glucose [Mass/Vol] 119 mg/dL Critically high 74-[address] [facility] Comment on above: Performed By: #### E RUR #### [facility] [address] [place] [address] Dr. Pratibha Stevenson Potassium [Moles/Vol] 3.9 mmol/L Normal 3.5-5.1 [facility] Comment on above: Performed By: #### E RUR #### [facility] [address] [place] [address] Dr. Pratibha Stevenson Protein [Mass/Vol] 6.0 g/dL Critically low 6.4-8.2 [facility] Comment on above: Performed By: #### E RUR #### [facility] [address] [place] [address] Dr. Pratibha Stevenson Sodium [Moles/Vol] 138 mmol/L Normal 136-145 [facility] Comment on above: Performed By: #### E RUR #### [facility] [address] [place] [address] Dr. Pratibha Setvenson Urea nitrogen [Mass/Vol] 7.0 mg/dL Normal 7.0-18.0 [facility] Comment on above: Performed By: #### E RUR #### [facility] [address] [place] [address] Dr. Pratibha Stevenson Urea nitrogen/Creatinine [Mass ratio] 6.1 mg/mg Normal [facility] Comment on above: Performed By: #### E RUR #### [facility] [address] [place] [address] Dr. Pratibha Stevenson XR KUB 1 VIEWon [...] ROSALINO SAID Date: 2022-05-12 06:43 Normal [facility] AMYLASEon 05-11-2022 Amylase [Catalytic activity/Vol] 52 U/L Normal 25-115 [facility] Comment on above: Performed By: #### C MP, GREG, LIPA #### [facility] [address] [place] [address] Dr. Pratibha Stevenson CBC AUTO DIFFon 05-11-2022 BASO # 0.0 103/ul Normal 0.0-0.1 [facility] Comment on above: Performed By: #### C BC #### [facility] [address] [place] [address] Dr. Pratibha Stevenson Basophils/100 WBC (Bld) 0.6 % Normal 0.2-2.0 [facility] Comment on above: Performed By: #### C BC #### [facility] [address] [place] [address] Dr. Pratibha Stevenson EO # 0.2 103/ul Normal 0.0-0.7 [facility] Comment on above: Performed By: #### C BC #### [facility] [address] [place] [address] Dr. Pratibha Stevenson Eosinophils/100 WBC (Bld) 2.3 % Normal 0.9-7.0 [facility] Comment on above: Performed By: #### C BC #### [facility] [address] [place] [address] Dr. Pratibha Stevenson Erythrocyte distribution width (RBC) [Ratio] 11.7 % Normal 11.0-15.0 [facility] Comment on above: Performed By: #### C BC #### [facility] [address] [place] [address] Dr. Pratibha Stevenson Hematocrit (Bld) [Volume fraction] 42.4 % Normal 42.0-54.0 [facility] Comment on above: Performed By: #### C BC #### [facility] [address] [place] [address] Dr. Pratibha Stevenson Hemoglobin (Bld) [Mass/Vol] 14.3 g/dL Normal 14.0-18.0 [facility] Comment on above: Performed By: #### C BC #### [facility] [address] [place] [address] Dr. Pratibha Stevenson IG # 0.01 10e3/ul Normal 0.00-0.03 [facility] Comment on above: Performed By: #### C BC #### [facility] [address] [place] [address] Dr. Pratibha Stevenson IG % 0.2 % Normal 0.0-0.5 [facility] Comment on above: Performed By: #### C BC #### [facility] [address] [place] [address] Dr. Pratibha Stevenson LYMPH # 2.8 103/ul Normal 1.2-3.8 [facility] Comment on above: Performed By: #### C BC #### [facility] [address] [place] [address] Dr. Pratibha Stevenson Lymphocytes/100 WBC (Bld) 41.8 % Normal 20.5-60.0 [facility] Comment on above: Performed By: #### C BC #### [facility] [address] [place] [address] Dr. Pratibha Stevenson MANUAL DIFF REQ NO Normal [facility] Comment on above: Performed By: #### C BC #### [facility] [address] [place] [address] Dr. Pratibha Stevenson MCH (RBC) [Entitic mass] 31.0 pg Normal 25.9-34.0 [facility] Comment on above: Performed By: #### C BC #### [facility] [address] [place] [address] Dr. Pratibha Stevenson MCHC (RBC) [Mass/Vol] 33.7 g/dL Normal 29.9-35.2 [facility] Comment on above: Performed By: #### C BC #### [facility] [address] [place] [address] Dr. Pratibha Stevneson MCV (RBC) [Entitic vol] 92.0 fL Normal 80.0-94.0 [facility] Comment on above: Performed By: #### C BC #### [facility] [address] [place] [address] Dr. Pratibha Stevenson MONO # 0.5 103/ul Normal 0.3-0.8 [facility] Comment on above: Performed By: #### C BC #### [facility] [address] [place] [address] Dr. Pratibha Stevenson Monocytes/100 WBC (Bld) 7.9 % Normal 1.7-12.0 [facility] Comment on above: Performed By: #### C BC #### [facility] [address] [place] [address] Dr. Pratibha Stevenson NEUT # 3.1 103/ul Normal 1.4-6.5 [facility] Comment on above: Performed By: #### C BC #### [facility] [address] [place] [address] Dr. Pratibha Stevenson Neutrophils/100 WBC (Bld) 47.2 % Normal 43.0-75.0 [facility] Comment on above: Performed By: #### C BC #### [facility] [address] [place] [address] Dr. Pratibha Stevenson Platelet mean volume (Bld) [Entitic vol] 10.7 fL Normal 9.5-13.5 [facility] Comment on above: Performed By: #### C BC #### [facility] [address] [place] [address] Dr. Pratibha Stevenson PLT 216 103/ul Normal 150-450 [facility] Comment on above: Performed By: #### C BC #### [facility] [address] [place] [address] Dr. Pratibha Stevenson RBC 4.61 106/ul Critically low 4.70-6.10 [facility] Comment on above: Performed By: #### C BC #### [facility] [address] [place] [address] Dr. Pratibha Stevenson WBC 6.6 103/ul Normal 4.0-11.0 [facility] Comment on above: Performed By: #### C BC #### [facility] [address] [place], [place] [address] ABD/PELVIS WO CONon [...] SAUMYA MARSH Date: 2022-05-11 08:31 Normal [facility] LIPASEon 05-11-2022 Lipase [Catalytic activity/Vol] 241.0 U/L Normal 73.0-393.0 [facility] Comment on above: Performed By: #### C MP, GREG, LIPA #### [facility] [address] [address] [address] Pratibha Stevenson PROF 14(COMP METB)on 023 Albumin [Mass/Vol] 3.6 g/dL Normal 3.4-5.0 [facility] Comment on above: Performed By: #### C MP, GREG, LIPA #### [facility] [address] [address] [address] Pratibha Stevenson Albumin/Globulin [Mass ratio] 1.2 {ratio} Normal [facility] Comment on above: Performed By: #### C MP, GREG, LIPA #### [facility] [address] [address] [address] Pratibha Stevenson ALP [Catalytic activity/Vol] 75 U/L Normal 46-116 [facility] Comment on above: Performed By: #### C MP, GREG, LIPA #### [facility] [address] [place] [address] Dr. Pratibha Stevenson ALT [Catalytic activity/Vol] 28 U/L Normal 16-63 [facility] Comment on above: Performed By: #### C MP, GREG, LIPA #### [facility] [address] [address] [address] Pratibha Stevenson Anion gap [Moles/Vol] 9.7 mmol/L Normal [facility] Comment on above: Performed By: #### C MP, GREG, LIPA #### [facility] [address] [place] [address] Dr. Pratibha Stevenson AST [Catalytic activity/Vol] 19 U/L Normal 15-37 [facility] Comment on above: Performed By: #### C MP, GREG, LIPA #### [facility] [address] [address] [address] Pratibha Stevenson Bilirubin [Mass/Vol] 0.5 mg/dL Normal 0.2-1.0 [facility] Comment on above: Performed By: #### C MP, GREG, LIPA #### [facility] [address] [address] [address] Pratibha Stevenson Calcium [Mass/Vol] 9.1 mg/dL Normal 8.5-10.1 [facility] Comment on above: Performed By: #### C MP, GREG, LIPA #### [facility] [address] [address] [address] Pratibha Stevenson Chloride [Moles/Vol] 104 mmol/L Normal 98-107 [facility] Comment on above: Performed By: #### C MP, GREG, LIPA #### [facility] [address] [place] [address] Dr. Pratibha Stevenson CO2 [Moles/Vol] 29.3 mmol/L Normal 21.0-32.0 [facility] Comment on above: Performed By: #### C WENDY, GREG, LIPA #### [facility] [address] [place] [address] Dr. Pratibha Stevenson Creatinine [Mass/Vol] 1.21 mg/dL Normal 0.70-1.30 [facility] Comment on above: Performed By: #### C WENDY GREG, LIPA #### [facility] [address] [place] [address] Dr. Pratibha Stevenson EGFR-AF GIBRALTARIAN >60 Normal >=60 [facility] Comment on above: Performed By: #### C WENDY GREG, LIPA #### [facility] [address] [place] [address] Dr. Pratibha Stevenson EGFR-NON AF GIBRALTARIAN >60 Normal >=60 [facility] Comment on above: Performed By: #### C WENDY GREG, LIPA #### [facility] [address] [place] [address] Dr. Pratibha Stevenson Globulin (S) [Mass/Vol] 3.1 g/dL Normal [facility] Comment on above: Performed By: #### C MP, GREG, LIPA #### [facility] [address] [place] [address] Dr. Pratibha Stevenson Glucose [Mass/Vol] 88 mg/dL Normal 74-106 [facility] Comment on above: Performed By: #### C MP, GREG, LIPA #### [facility] [address] [place] [address] Dr. Pratibha Stevenson Potassium [Moles/Vol] 4.0 mmol/L Normal 3.5-5.1 [facility] Comment on above: Performed By: #### C GREG NGUYEN LIPA #### [facility] [address] [address] [address] Pratibha Stevenson Protein [Mass/Vol] 6.7 g/dL Normal 6.4-8.2 [facility] Comment on above: Performed By: #### C GREG NGUYEN LIPA #### [facility] [address] [address] [address] Pratibha Stevenson Sodium [Moles/Vol] 139 mmol/L Normal 136-145 [facility] Comment on above: Performed By: #### C GREG NGUYEN LIPA #### [facility] [address] [address] [address] Pratibha Stevenson Urea nitrogen [Mass/Vol] 8.0 mg/dL Normal 7.0-18.0 [facility] [facility] Comment on above: Performed By: #### C GREG NGUYEN LIPA #### [facility] [address] [place] [address] Dr. Pratibha Stevenson Urea nitrogen/Creatinine [Mass ratio] 6.6 mg/mg Normal [facility] Comment on above: Performed By: #### C GREG NGUYEN LIPA #### [facility] [address] [place] [address] Dr. Pratibha Stevenson XR KUB 1 VIEWon [...] MAUREEN GARDNER Date: 2022-05-11 06:36 Normal [facility] AMYLASEon 05-10-2022 Amylase [Catalytic activity/Vol] 41 U/L Normal 25-115 [facility] Comment on above: Performed By: #### L ACT #### [facility] [address] [address] [address] Pratibha Stevenson CBC AUTO DIFFon 05-10-2022 BASO # 0.0 103/ul Normal 0.0-0.1 [facility] Comment on above: Performed By: #### L ACT #### [facility] [address] [place] [address] Dr. Pratibha Stevenson Basophils/100 WBC (Bld) 0.7 % Normal 0.2-2.0 [facility] Comment on above: Performed By: #### L ACT #### [facility] [address] [place] [address] Dr. Pratibha Stevenson EO # 0.2 103/ul Normal 0.0-0.7 [facility] Comment on above: Performed By: #### L ACT #### [facility] [address] [place] [address] Dr. Pratibha Stevenson Eosinophils/100 WBC (Bld) 2.8 % Normal 0.9-7.0 [facility] Comment on above: Performed By: #### L ACT #### [facility] [address] [place] [address] Dr. Pratibha Stevenson Erythrocyte distribution width (RBC) [Ratio] 11.8 % Normal 11.0-15.0 [facility] Comment on above: Performed By: #### L ACT #### [facility] [address] [place] [address] Dr. Pratibha Stevenson Hematocrit (Bld) [Volume fraction] 38.8 % Critically low 42.0-54.0 [facility] Comment on above: Performed By: #### L ACT #### [facility] [address] [place] [address] Dr. Pratibha Stevenson Hemoglobin (Bld) [Mass/Vol] 13.3 g/dL Critically low 14.0-18.0 [facility] Comment on above: Performed By: #### L ACT #### [facility] [address] [place] [address] Dr. Pratibha Stevenson IG # 0.02 10e3/ul Normal 0.00-0.03 [facility] Comment on above: Performed By: #### L ACT #### [facility] [address] [place] [address] Dr. Pratibha Stevenson IG % 0.3 % Normal 0.0-0.5 [facility] Comment on above: Performed By: #### L ACT #### [facility] [address] [place] [address] Dr. Pratibha Stevenson LYMPH # 2.1 103/ul Normal 1.2-3.8 [facility] Comment on above: Performed By: #### L ACT #### [facility] [address] [place] [address] Dr. Pratibha Stevenson Lymphocytes/100 WBC (Bld) 35.3 % Normal 20.5-60.0 [facility] Comment on above: Performed By: #### L ACT #### [facility] [address] [place] [address] Dr. Pratibha Stevenson MANUAL DIFF REQ NO Normal [facility] Comment on above: Performed By: #### L ACT #### [facility] [address] [place] [address] Dr. Pratibha Stevenson MCH (RBC) [Entitic mass] 30.7 pg Normal 25.9-34.0 [facility] Comment on above: Performed By: #### L ACT #### [facility] [address] [place] [address] Dr. Pratibha Stevenson MCHC (RBC) [Mass/Vol] 34.3 g/dL Normal 29.9-35.2 [facility] Comment on above: Performed By: #### L ACT #### [facility] [address] [place] [address] Dr. Pratibha Stevenson MCV (RBC) [Entitic vol] 89.6 fL Normal 80.0-94.0 [facility] Comment on above: Performed By: #### L ACT #### [facility] [address] [address] [address] rPatibha Stevenson MONO # 0.4 103/ul Normal 0.3-0.8 [facility] Comment on above: Performed By: #### L ACT #### [facility] [address] [address] [address] Pratibha Stevenson Monocytes/100 WBC (Bld) 7.4 % Normal 1.7-12.0 [facility] Comment on above: Performed By: #### L ACT #### [facility] [address] [address] [address] Pratibha Stevenson NEUT # 3.1 103/ul Normal 1.4-6.5 [facility] Comment on above: Performed By: #### L ACT #### [facility] [address] [address] [address] Pratibha Stevenson Neutrophils/100 WBC (Bld) 53.5 % Normal 43.0-75.0 [facility] Comment on above: Performed By: #### L ACT #### [facility] [address] [address] [address] Pratbiha Stevenson Platelet mean volume (Bld) [Entitic vol] 10.2 fL Normal 9.5-13.5 [facility] Comment on above: Performed By: #### L ACT #### [facility] [address] [address] [address] Pratibha Stevenson PLT 197 103/ul Normal 150-450 [facility] Comment on above: Performed By: #### L ACT #### [facility] [id number] Pratibha Stevenson RBC 4.33 106/ul Critically low 4.70-6.10 [facility] Comment on above: Performed By: #### L ACT #### [facility] [address] [address] [address] Pratibha Stevenson WBC 5.8 103/ul Normal 4.0-11.0 [facility] Comment on above: Performed By: #### L ACT #### [facility] [address] [place] [address] Dr. Pratibha Stevenson LIPASEon 05-10-2022 Lipase [Catalytic activity/Vol] 134.0 U/L Normal 73.0-393.0 [facility] Comment on above: Performed By: #### L ACT #### [facility] [address] [place] [address] Dr. Pratibha Stevenson PROF 14(COMP METB)on 023 Albumin [Mass/Vol] 3.1 g/dL Critically low 3.4-5.0 [facility] Comment on above: Performed By: #### L ACT #### [facility] [address] [place] [address] Dr. Pratibha Stevenson Albumin/Globulin [Mass ratio] 1.1 {ratio} Normal [facility] Comment on above: Performed By: #### L ACT #### [facility] [address] [place] [address] Dr. Pratibha Stevenson ALP [Catalytic activity/Vol] 68 U/L Normal 46-116 [facility] Comment on above: Performed By: #### L ACT #### [facility] [address] [place] [address] Dr. Pratibha Stevenson ALT [Catalytic activity/Vol] 25 U/L Normal 16-63 [facility] Comment on above: Performed By: #### L ACT #### [facility] [address] [place] [address] Dr. Pratibha Stevenson Anion gap [Moles/Vol] 11.1 mmol/L Normal [facility] Comment on above: Performed By: #### L ACT #### [facility] [address] [place] [address] Dr. Pratibha Stevenson AST [Catalytic activity/Vol] 16 U/L Normal 15-37 [facility] Comment on above: Performed By: #### L ACT #### [facility] [address] [place] [address] Dr. Pratibha Stevenson Bilirubin [Mass/Vol] 0.5 mg/dL Normal 0.2-1.0 [facility] Comment on above: Performed By: #### L ACT #### [facility] [address] [address] [address] Pratibha Stevenson Calcium [Mass/Vol] 8.6 mg/dL Normal 8.5-10.1 [facility] Comment on above: Performed By: #### L ACT #### [facility] [address] [address] [address] Pratibha Stevenson Chloride [Moles/Vol] 105 mmol/L Normal 98-107 [facility] Comment on above: Performed By: #### L ACT #### [facility] [address] [place] [address] Dr. Pratibha Stevenson CO2 [Moles/Vol] 26.6 mmol/L Normal 21.0-32.0 [facility] Comment on above: Performed By: #### L ACT #### [facility] [address] [place] [address] Dr. Pratibha Stevenson Creatinine [Mass/Vol] 1.12 mg/dL Normal 0.70-1.30 [facility] Comment on above: Performed By: #### L ACT #### [facility] [address] [place] [address] Dr. Pratibha Stevenson EGFR-AF GIBRALTARIAN >60 Normal >=60 [facility] Comment on above: Performed By: #### L ACT #### [facility] [address] [place] [address] Dr. Pratibha Stevenson EGFR-NON AF GIBRALTARIAN >60 Normal >=60 [facility] Comment on above: Performed By: #### L ACT #### [facility] [address] [place] [address] Dr. Pratibha Stevenson Globulin (S) [Mass/Vol] 2.7 g/dL Normal [facility] Comment on above: Performed By: #### L ACT #### [facility] [address] [address] [address] Pratibha Stevenson Glucose [Mass/Vol] 86 mg/dL Normal 74-106 [facility] Comment on above: Performed By: #### L ACT #### [facility] [address] [place], [place] [address] Dr. Pratibha Stevenson Potassium [Moles/Vol] 3.7 mmol/L Normal 3.5-5.1 [facility] Comment on above: Performed By: #### L ACT #### [facility] [address] [place], [place] [address] Dr. Pratibha Stevenson Protein [Mass/Vol] 5.8 g/dL Critically low 6.4-8.2 [facility] Comment on above: Performed By: #### L ACT #### [facility] [address] [place], [place] [address] Dr. Pratibha Stevenson Sodium [Moles/Vol] 139 mmol/L Normal 136-145 [facility] Comment on above: Performed By: #### L ACT #### [facility] [address] [address] [address] Pratibha Stevenson Urea nitrogen [Mass/Vol] 12.0 mg/dL Normal 7.0-18.0 [facility] Comment on above: Performed By: #### L ACT #### [facility] [address] [address] [address] Pratibha Stevenson Urea nitrogen/Creatinine [Mass ratio] 10.7 mg/mg Normal [facility] Comment on above: Performed By: #### L ACT #### [facility] [address] [place], [place] [address] Dr. Pratibha Stevenson US KIDNEYSon 05-10-2022 US [...] SAUMYA MARSH Date: 2022-05-10 08:37 Normal [facility] XR KUB 1 VIEWon 05-10-2022 [...] MAUREEN GARDNER Date: 2022-05-10 06:55 Normal [facility] AMYLASEon 05-09-2022 Amylase [Catalytic activity/Vol] 44 U/L Normal 25-115 [facility] Comment on above: Performed By: #### C BC #### [facility] [address] [address] [address] Pratibha Stevenson CBC AUTO DIFFon 05-09-2022 BASO # 0.1 103/ul Normal 0.0-0.1 [facility] Comment on above: Performed By: #### S SCRN, GRASTCX #### [facility] [address] [address] [address] Pratibha Stevenson Basophils/100 WBC (Bld) 0.9 % Normal 0.2-2.0 [facility] Comment on above: Performed By: #### S SCRN, GRASTCX #### [facility] [address] [address] [address] Pratibha Stevenson EO # 0.2 103/ul Normal 0.0-0.7 [facility] Comment on above: Performed By: #### S JOSE ARMANDO GRASTCX #### [facility] [address] [place] [address] Dr. Pratibha Stevenson Eosinophils/100 WBC (Bld) 2.6 % Normal 0.9-7.0 [facility] Comment on above: Performed By: #### S JOSE ARMANDO GRASTCX #### [facility] [address] [place] [address] Dr. Pratibha Stevenson Erythrocyte distribution width (RBC) [Ratio] 11.9 % Normal 11.0-15.0 [facility] Comment on above: Performed By: #### S JOSE ARMANDO GRASTCX #### [facility] [address] [place] [address] Dr. Pratibha Stevenson Hematocrit (Bld) [Volume fraction] 38.8 % Critically low 42.0-54.0 [facility] Comment on above: Performed By: #### S JOSE ARMANDO GRASTCX #### [facility] [address] [place] [address] Dr. Pratibha Stevenson Hemoglobin (Bld) [Mass/Vol] 13.9 g/dL Critically low 14.0-18.0 [facility] Comment on above: Performed By: #### Ruthann SUÁREZ GRASTCX #### [facility] [address] [place] [address] Dr. Pratibha Stevenson IG # 0.02 10e3/ul Normal 0.00-0.03 [facility] Comment on above: Performed By: #### S JOSE ARMANDO GRASTCX #### [facility] [address] [place] [address] Dr. Pratibha Stevenson IG % 0.4 % Normal 0.0-0.5 [facility] Comment on above: Performed By: #### S JOSE ARMANDO GRASTCX #### [facility] [address] [place] [address] Dr. Pratibha Stevenson LYMPH # 2.0 103/ul Normal 1.2-3.8 [facility] Comment on above: Performed By: #### S JOSE ARMANDO GRASTCX #### [facility] [address] [address] [address] Pratibha Stevenson Lymphocytes/100 WBC (Bld) 34.9 % Normal 20.5-60.0 [facility] Comment on above: Performed By: #### S SCRN, GRASTCX #### [facility] [address] [address] [address] Pratibha Stevenson MANUAL DIFF REQ NO Normal [facility] Comment on above: Performed By: #### S SCRN, GRASTCX #### [facility] [address] [place] [address] Dr. Pratibha Stevenson MCH (RBC) [Entitic mass] 31.0 pg Normal 25.9-34.0 [facility] Comment on above: Performed By: #### S SCRN, GRASTCX #### [facility] [address] [place] [address] Dr. Pratibha Stevenson MCHC (RBC) [Mass/Vol] 35.8 g/dL Critically high 29.9-35.2 [facility] Comment on above: Performed By: #### S SCRN, GRASTCX #### [facility] [address] [place] [address] Dr. Pratibha Stevenson MCV (RBC) [Entitic vol] 86.6 fL Normal 80.0-94.0 [facility] Comment on above: Performed By: #### S SCRN, GRASTCX #### [facility] [address] [place] [address] Dr. Pratibha Stevenson MONO # 0.4 103/ul Normal 0.3-0.8 [facility] Comment on above: Performed By: #### S SCRN, GRASTCX #### [facility] [address] [place] [address] Dr. Pratibha Stevenson Monocytes/100 WBC (Bld) 6.2 % Normal 1.7-12.0 [facility] Comment on above: Performed By: #### S SCRN, GRASTCX #### [facility] [address] [place] [address] Dr. Pratibha Stevenson NEUT # 3.1 103/ul Normal 1.4-6.5 [facility] Comment on above: Performed By: #### S JOSE ARMANDO GRASTCX #### [facility] [address] [place] [address] Dr. Pratibha Stevenson Neutrophils/100 WBC (Bld) 55.0 % Normal 43.0-75.0 [facility] Comment on above: Performed By: #### S JOSE ARMANDO GRASTCX #### [facility] [address] [place] [address] Dr. Pratibha Stevenson Platelet mean volume (Bld) [Entitic vol] 9.7 fL Normal 9.5-13.5 [facility] Comment on above: Performed By: #### S JOSE ARMANDO GRASTCX #### [facility] [address] [place] [address] Dr. Pratibha Stevenson PLT 201 103/ul Normal 150-450 [facility] Comment on above: Performed By: #### S JOSE ARMANDO GRASTCX #### [facility] [address] [place] [address] Dr. Pratibha Stevenson RBC 4.48 106/ul Critically low 4.70-6.10 [facility] Comment on above: Performed By: #### S JOSE ARMANDO GRASTCX #### [facility] [address] [place] [address] Dr. Pratibha Stevenson WBC 5.7 103/ul Normal 4.0-11.0 [facility] Comment on above: Performed By: #### S JOSE ARMANDO GRASTCX #### [facility] [address] [place] [address] Dr. Pratibha Stevenson CULTURE URINEon 05-09-2022 CULTURE URINE Culture Observations : NO GROWTH. Normal [facility] Comment on above: Performed By: #### C BC #### [facility] [address] [place] [address] Dr. Pratibha Stevenson LIPASEon 05-09-2022 Lipase [Catalytic activity/Vol] 98.0 U/L Normal 73.0-393.0 [facility] Comment on above: Performed By: #### C BC #### [facility] [address] [place] [address] Dr. Pratibha Stevenson PROF 14(COMP METB)on 023 Albumin [Mass/Vol] 3.2 g/dL Critically low 3.4-5.0 [facility] Comment on above: Performed By: #### C BC #### [facility] [address] [place] [address] Dr. Pratibha Steevnson Albumin/Globulin [Mass ratio] 1.3 {ratio} Normal [facility] Comment on above: Performed By: #### C BC #### [facility] [address] [place] [address] Dr. Pratibha Stevenson ALP [Catalytic activity/Vol] 74 U/L Normal 46-116 [facility] Comment on above: Performed By: #### C BC #### [facility] [address] [place] [address] Dr. Pratibha Stevenson ALT [Catalytic activity/Vol] 25 U/L Normal 16-63 [facility] Comment on above: Performed By: #### C BC #### [facility] [address] [place] [address] Dr. Pratibha Stevenson Anion gap [Moles/Vol] 10.7 mmol/L Normal [facility] Comment on above: Performed By: #### C BC #### [facility] [address] [place] [address] Dr. Pratibha Stevenson AST [Catalytic activity/Vol] 18 U/L Normal 15-37 [facility] Comment on above: Performed By: #### C BC #### [facility] [address] [place] [address] Dr. Pratibha Stevenson Bilirubin [Mass/Vol] 0.7 mg/dL Normal 0.2-1.0 [facility] Comment on above: Performed By: #### C BC #### [facility] [address] [place] [address] Dr. Pratibha Stevenson Calcium [Mass/Vol] 8.5 mg/dL Normal 8.5-10.1 [facility] Comment on above: Performed By: #### C BC #### [facility] [address] [place] [address] Dr. Pratibha Stevenson Chloride [Moles/Vol] 106 mmol/L Normal 98-107 [facility] Comment on above: Performed By: #### C BC #### [facility] [address] [address] [address] Pratibha Stevenson CO2 [Moles/Vol] 27.1 mmol/L Normal 21.0-32.0 [facility] Comment on above: Performed By: #### C BC #### [facility] [address] [address] [address] Pratibha Stevenson Creatinine [Mass/Vol] 1.16 mg/dL Normal 0.70-1.30 [facility] Comment on above: Performed By: #### C BC #### [facility] [address] [place] [address] Dr. Pratibha Stevenson EGFR-AF GIBRALTARIAN >60 Normal >=60 [facility] Comment on above: Performed By: #### C BC #### [facility] [address] [place] [address] Dr. Pratibha Stevenson EGFR-NON AF GIBRALTARIAN >60 Normal >=60 [facility] Comment on above: Performed By: #### C BC #### [facility] [address] [place] [address] Dr. Pratibha Stevenson Globulin (S) [Mass/Vol] 2.5 g/dL Normal [facility] Comment on above: Performed By: #### C BC #### [facility] [address] [place] [address] Dr. Pratibha Stevenson Glucose [Mass/Vol] 90 mg/dL Normal 74-106 [facility] Comment on above: Performed By: #### C BC #### [facility] [address] [place] [address] Dr. Pratibha Stevenson Potassium [Moles/Vol] 3.8 mmol/L Normal 3.5-5.1 [facility] Comment on above: Performed By: #### C BC #### [facility] [address] [place] [address] Dr. Pratibha Stevenson Protein [Mass/Vol] 5.7 g/dL Critically low 6.4-8.2 [facility] Comment on above: Performed By: #### C BC #### [facility] [address] [place], [place] [address] Dr. Pratibha Stevenson Sodium [Moles/Vol] 140 mmol/L Normal 136-145 [facility] Comment on above: Performed By: #### C BC #### [facility] [address] [place], [place] [address] Dr. Pratibha Stevenson Urea nitrogen [Mass/Vol] 12.0 mg/dL Normal 7.0-18.0 [facility] Comment on above: Performed By: #### C BC #### [facility] [address] [address] [address] Pratibha Stevenson Urea nitrogen/Creatinine [Mass ratio] 10.3 mg/mg Normal [facility] Comment on above: Performed By: #### C BC #### [facility] [address] [address] [address] Pratibha Stevenson XR KUB 1 VIEWon [...] EDIS HERNÁNDEZ Date: 2022-05-09 05:31 Normal [facility] CBC AUTO DIFFon 05-08-2022 BASO # 0.1 103/ul Normal 0.0-0.1 [facility] Comment on above: Performed By: #### C BC #### [facility] [address] [address] [address] Pratibha Stevenson Basophils/100 WBC (Bld) 0.4 % Normal 0.2-2.0 [facility] Comment on above: Performed By: #### C BC #### [facility] [address] [place] [address] Dr. Pratibha Stevenson EO # 0.1 103/ul Normal 0.0-0.7 [facility] Comment on above: Performed By: #### C BC #### [facility] [address] [place] [address] Dr. Pratibha Stevenson Eosinophils/100 WBC (Bld) 1.0 % Normal 0.9-7.0 [facility] Comment on above: Performed By: #### C BC #### [facility] [address] [place] [address] Dr. Pratibha Stevenson Erythrocyte distribution width (RBC) [Ratio] 11.9 % Normal 11.0-15.0 [facility] Comment on above: Performed By: #### C BC #### [facility] [address] [place] [address] Dr. Pratibha Stevenson Hematocrit (Bld) [Volume fraction] 47.4 % Normal 42.0-54.0 [facility] Comment on above: Performed By: #### C BC #### [facility] [address] [place] [address] Dr. Pratibha Stevenson Hemoglobin (Bld) [Mass/Vol] 17.3 g/dL Normal 14.0-18.0 [facility] Comment on above: Performed By: #### C BC #### [facility] [address] [place] [address] Dr. Pratibha Stevenson IG # 0.05 10e3/ul Critically high 0.00-0.03 [facility] Comment on above: Performed By: #### C BC #### [facility] [address] [place] [address] Dr. Pratibha Stevenson IG % 0.4 % Normal 0.0-0.5 [facility] Comment on above: Performed By: #### C BC #### [facility] [address] [place] [address] Dr. Pratibha Stevenson LYMPH # 2.4 103/ul Normal 1.2-3.8 [facility] Comment on above: Performed By: #### C BC #### [facility] [address] [place] [address] Dr. Pratibha Stevesnon Lymphocytes/100 WBC (Bld) 18.6 % Critically low 20.5-60.0 [facility] Comment on above: Performed By: #### C BC #### [facility] [address] [place] [address] Dr. Pratibha Stevenson MANUAL DIFF REQ NO Normal [facility] Comment on above: Performed By: #### C BC #### [facility] [address] [address] [address] Pratibha Stevenson MCH (RBC) [Entitic mass] 31.3 pg Normal 25.9-34.0 [facility] Comment on above: Performed By: #### C BC #### [facility] [address] [place] [address] Dr. Pratibha Stevenson MCHC (RBC) [Mass/Vol] 36.5 g/dL Critically high 29.9-35.2 [facility] Comment on above: Performed By: #### C BC #### [facility] [address] [place] [address] Dr. Pratibha Stevenson MCV (RBC) [Entitic vol] 85.7 fL Normal 80.0-94.0 [facility] Comment on above: Performed By: #### C BC #### [facility] [address] [place] [address] Dr. Pratibha Stevenson MONO # 0.6 103/ul Normal 0.3-0.8 [facility] Comment on above: Performed By: #### C BC #### [facility] [address] [place] [address] Dr. Pratibha Stevenson Monocytes/100 WBC (Bld) 5.0 % Normal 1.7-12.0 [facility] Comment on above: Performed By: #### C BC #### [facility] [address] [place] [address] Dr. Pratibha Stevenson NEUT # 9.6 103/ul Critically high 1.4-6.5 [facility] Comment on above: Performed By: #### C BC #### [facility] [address] [place] [address] Dr. Pratibha Stevenson Neutrophils/100 WBC (Bld) 74.6 % Normal 43.0-75.0 [facility] Comment on above: Performed By: #### C BC #### [facility] [address] [place] [address] Dr. Pratibha Stevenson Platelet mean volume (Bld) [Entitic vol] 9.6 fL Normal 9.5-13.5 [facility] Comment on above: Performed By: #### C BC #### [facility] [address] [place] [address] Dr. Pratibha Stevenson PLT 286 103/ul Normal 150-450 [facility] Comment on above: Performed By: #### C BC #### [facility] [address] [place] [address] Dr. Pratibha Stevenson RBC 5.53 106/ul Normal 4.70-6.10 [facility] Comment on above: Performed By: #### C BC #### [facility] [address] [place] [address] Dr. Pratibha Stevenson WBC 12.8 103/ul Critically high 4.0-11.0 [facility] Comment on above: Performed By: #### C BC #### [facility] [address] [place] [address] ABD/PELV W CONon [...] CHAGO ROLLINS Date: 2022-05-08 18:37 Normal [facility] SARS-CoV-2 (COVID-19) RNA MARIKA+probe Ql (Unsp spec) Not detected Normal NOT DETECTED [facility] Comment on above: Result Comment: [...] for this test is supported by the [place] of Health and Human Service's declaration that [...] used). Performed By: #### C BC #### [facility] [address] [place] [address] Dr. Pratibha RESENDIZ URINE PROFILEon 3 Bilirubin Ql (U) SMALL Abnormal NEGATIVE [facility] Comment on above: Performed By: #### C BC #### [facility] [address] [place] [address] Dr. Pratibha Stevenson Clarity (U) CLEAR Normal CLEAR [facility] Comment on above: Performed By: #### C BC #### [facility] [address] [place] [address] Dr. Pratibha Stevenson Color (U) DK. ORANGE Abnormal YELLOW [facility] Comment on above: Performed By: #### C BC #### [facility] [address] [place] [address] Dr. Pratibha RIOS A micrscopic examination will be performed if indicated. Normal [facility] Comment on above: Performed By: #### C BC #### [facility] [address] [place] [address] Dr. Pratibha Stevenson Glucose Ql (U) Negative Normal NEGATIVE [facility] Comment on above: Performed By: #### C BC #### [facility] [address] [place] [address] Dr. Pratibha Stevenson Hemoglobin Ql (U) LARGE Abnormal NEGATIVE [facility] Comment on above: Performed By: #### C BC #### [facility] [address] [place] [address] Dr. Pratibha Stevenson Ketones Ql (U) TRACE Abnormal NEGATIVE [facility] Comment on above: Performed By: #### C BC #### [facility] [address] [place] [address] Dr. Pratibha Stevenson LEUKOCYTES Negative Normal NEGATIVE [facility] Comment on above: Performed By: #### C BC #### [facility] [address] [place] [address] Dr. Pratibha Stevenson Nitrite Ql (U) Negative Normal NEGATIVE [facility] Comment on above: Performed By: #### C BC #### [facility] [address] [place] [address] Dr. Pratibha Stevenson pH (U) 6.5 [pH] Normal 5-9 [facility] Comment on above: Performed By: #### C BC #### [facility] [address] [place] [address] Dr. Pratibha Stevenson Protein (U) [Mass/Vol] 100 mg/dL Abnormal NEGATIVE/ TRACE [facility] Comment on above: Performed By: #### C BC #### [facility] [address] [place] [address] Dr. Pratibha Stevenson SPEC GRAVITY 1.010 Normal 1.005-<=1.025 [facility] Comment on above: Performed By: #### C BC #### [facility] [address] [place] [address] Dr. Pratibha Stevenson UR MICRO IND INDICATED Normal [facility] Comment on above: Performed By: #### C BC #### [facility] [address] [place] [address] Dr. Pratibha Stevenson Urobilinogen Qn (U) 1.0 {Butch'U}/dL Normal 0.2 - 1. 0 [facility] Comment on above: Performed By: #### C BC #### [facility] [address] [place] [address] Dr. Pratibha Stevenson LIPASEon 05-08-2022 Lipase [Catalytic activity/Vol] 417.0 U/L Critically high 73.0-393.0 [facility] Comment on above: Performed By: #### L ACT #### [facility] [address] [place] [address] Dr. Pratibha Stevenson PROF 14(COMP METB)on 023 Albumin [Mass/Vol] 4.5 g/dL Normal 3.4-5.0 [facility] Comment on above: Performed By: #### L ACT #### [facility] [address] [place] [address] Dr. Pratibha Stevenson Albumin/Globulin [Mass ratio] 1.3 {ratio} Normal [facility] Comment on above: Performed By: #### L ACT #### [facility] [address] [address] [address] Pratibha Stevenson ALP [Catalytic activity/Vol] 97 U/L Normal 46-116 [facility] Comment on above: Performed By: #### L ACT #### [facility] [address] [address] [address] Pratibha Stevenson ALT [Catalytic activity/Vol] 35 U/L Normal 16-63 [facility] Comment on above: Performed By: #### L ACT #### [facility] [address] [place] [address] Dr. Pratibha Stevenson Anion gap [Moles/Vol] 13.7 mmol/L Normal [facility] Comment on above: Performed By: #### L ACT #### [facility] [address] [place] [address] Dr. Pratibha Stevenson AST [Catalytic activity/Vol] 22 U/L Normal 15-37 [facility] Comment on above: Performed By: #### L ACT #### [facility] [address] [place] [address] Dr. Pratibha Stevenson Bilirubin [Mass/Vol] 0.7 mg/dL Normal 0.2-1.0 [facility] Comment on above: Performed By: #### L ACT #### [facility] [address] [place] [address] Dr. Pratibha Stevenson Calcium [Mass/Vol] 9.6 mg/dL Normal 8.5-10.1 [facility] Comment on above: Performed By: #### L ACT #### [facility] [address] [place] [address] Dr. Pratibha Stevenson Chloride [Moles/Vol] 99 mmol/L Normal 98-107 [facility] Comment on above: Performed By: #### L ACT #### [facility] [address] [place] [address] Dr. Pratibha Stevenson CO2 [Moles/Vol] 29.0 mmol/L Normal 21.0-32.0 [facility] Comment on above: Performed By: #### L ACT #### [facility] [address] [place] [address] Dr. Pratibha Stevenson Creatinine [Mass/Vol] 1.43 mg/dL Critically high 0.70-1.30 [facility] Comment on above: Performed By: #### L ACT #### [facility] [address] [address] [address] Pratibha Stevenson EGFR-AF GIBRALTARIAN >60 Normal >=60 [facility] Comment on above: Performed By: #### L ACT #### [facility] [address] [address] [address] Pratibha Stevenson EGFR-NON AF GIBRALTARIAN 58 mL/min/1.73m2 Critically low >=60 [facility] Comment on above: Performed By: #### L ACT #### [facility] [address] [place] [address] Dr. Pratibha Stevenson Globulin (S) [Mass/Vol] 3.5 g/dL Normal [facility] Comment on above: Performed By: #### L ACT #### [facility] [address] [address] [address] Pratibha Stevenson Glucose [Mass/Vol] 127 mg/dL Critically high 74-106 [facility] Comment on above: Performed By: #### L ACT #### [facility] [address] [place] [address] Dr. Pratibha Stevenson Potassium [Moles/Vol] 3.7 mmol/L Normal 3.5-5.1 [facility] Comment on above: Performed By: #### L ACT #### [facility] [address] [place] [address] Dr. Pratibha Stevenson Protein [Mass/Vol] 8.0 g/dL Normal 6.4-8.2 [facility] Comment on above: Performed By: #### L ACT #### [facility] [address] [place] [address] Dr. Pratibha Stevenson Sodium [Moles/Vol] 138 mmol/L Normal 136-145 [facility] Comment on above: Performed By: #### L ACT #### [facility] [address] [address] [address] Pratibha Stevenson Urea nitrogen [Mass/Vol] 13.0 mg/dL Normal 7.0-18.0 [facility] Comment on above: Performed By: #### L ACT #### [facility] [address] [place] [address] Dr. Pratibha Stevenson Urea nitrogen/Creatinine [Mass ratio] 9.1 mg/mg Normal [facility] Comment on above: Performed By: #### L ACT #### [facility] [address] [place] [address] Dr. Pratibha Stevenson URINE MICROSCOPIC ONLYon BACTERIA NONE SEEN Normal NONE SEEN [facility] Comment on above: Performed By: #### C BC #### [facility] [address] [place] [address] Dr. Pratibha Stevenson Bacteria identified Cx Nom (U) NOT INDICATED Normal [facility] Comment on above: Performed By: #### C BC #### [facility] [address] [place] [address] Dr. Pratibha Stevenson CAST NONE SEEN Normal NONE SEEN [facility] Comment on above: Performed By: #### C BC #### [facility] [address] [place] [address] Dr. Pratibha Stevenson Crystals LM Nom (Urine sed) NONE SEEN Normal NONE SEEN [facility] Comment on above: Performed By: #### C BC #### [facility] [address] [place] [address] Dr. Pratibha Stevenson Epithelial cells LM Ql (Urine sed) FEW Abnormal NONE SEEN /RARE [facility] Comment on above: Performed By: #### C BC #### [facility] [address] [place] [address] Dr. Pratibha Stevenson MUCOUS TRACE Abnormal NONE SEEN [facility] Comment on above: Performed By: #### C BC #### [facility] [address] [place] [address] Dr. Pratibha Stevenson RBC (U) [#/Vol] /uL Abnormal 0-2 [facility] Comment on above: Performed By: #### C BC #### [facility] [address] [place] [address] Dr. Pratibha Stevenson WBC 2-5 Abnormal NONE SEEN [facility] Comment on above: Performed By: #### C BC #### [facility] [address] [place] [address] Dr. Pratibha Stevenson XR CHEST 1 Von [...] RAMO ZEPEDA Date: 2022-05-08 17:40 Normal [facility] CBC AUTO DIFFon 03-23-2022 BASO # 0.1 103/ul Normal 0.0-0.1 [facility] Comment on above: Performed By: #### C BC #### [facility] [address] [place] [address] Dr. Pratibha Stevenson Basophils/100 WBC (Bld) 0.9 % Normal 0.2-2.0 [facility] Comment on above: Performed By: #### C BC #### [facility] [address] [place] [address] Dr. Pratibha Stevenson EO # 0.1 103/ul Normal 0.0-0.7 [facility] Comment on above: Performed By: #### C BC #### [facility] [address] [place] [address] Dr. Pratibha Stevenson Eosinophils/100 WBC (Bld) 1.7 % Normal 0.9-7.0 [facility] Comment on above: Performed By: #### C BC #### [facility] [address] [place] [address] Dr. Pratibha Stevenson Erythrocyte distribution width (RBC) [Ratio] 12.3 % Normal 11.0-15.0 [facility] Comment on above: Performed By: #### C BC #### [facility] [address] [place] [address] Dr. Pratibha Stevenson Hematocrit (Bld) [Volume fraction] 47.2 % Normal 42.0-54.0 [facility] Comment on above: Performed By: #### C BC #### [facility] [address] [place] [address] Dr. Pratibha Stevenson Hemoglobin (Bld) [Mass/Vol] 16.0 g/dL Normal 14.0-18.0 [facility] Comment on above: Performed By: #### C BC #### [facility] [address] [place] [address] Dr. Pratibha Stevenson IG # 0.03 10e3/ul Normal 0.00-0.03 [facility] Comment on above: Performed By: #### C BC #### [facility] [address] [place] [address] Dr. Pratibha Stevenson IG % 0.4 % Normal 0.0-0.5 [facility] Comment on above: Performed By: #### C BC #### [facility] [address] [place] [address] Dr. Pratibha Stevenson LYMPH # 2.5 103/ul Normal 1.2-3.8 [facility] Comment on above: Performed By: #### C BC #### [facility] [address] [place] [address] Dr. Pratibha Stevenson Lymphocytes/100 WBC (Bld) 30.4 % Normal 20.5-60.0 [facility] Comment on above: Performed By: #### C BC #### [facility] [address] [place] [address] Dr. Pratibha Stevenson MANUAL DIFF REQ NO Normal [facility] Comment on above: Performed By: #### C BC #### [facility] [address] [place] [address] Dr. Pratibha Stevenson MCH (RBC) [Entitic mass] 30.9 pg Normal 25.9-34.0 [facility] Comment on above: Performed By: #### C BC #### [facility] [address] [place] [address] Dr. Pratibha Stevenson MCHC (RBC) [Mass/Vol] 33.9 g/dL Normal 29.9-35.2 [facility] Comment on above: Performed By: #### C BC #### [facility] [address] [place] [address] Dr. Pratibha Stevenson MCV (RBC) [Entitic vol] 91.3 fL Normal 80.0-94.0 [facility] Comment on above: Performed By: #### C BC #### [facility] [address] [place] [address] Dr. Pratibha Stevenson MONO # 0.6 103/ul Normal 0.3-0.8 [facility] Comment on above: Performed By: #### C BC #### [facility] [address] [place] [address] Dr. Pratibha Stevenson Monocytes/100 WBC (Bld) 7.6 % Normal 1.7-12.0 [facility] Comment on above: Performed By: #### C BC #### [facility] [address] [place] [address] Dr. Pratibha Stevenson NEUT # 4.8 103/ul Normal 1.4-6.5 [facility] Comment on above: Performed By: #### C BC #### [facility] [address] [place] [address] Dr. Pratibha Stevenson Neutrophils/100 WBC (Bld) 59.0 % Normal 43.0-75.0 [facility] Comment on above: Performed By: #### C BC #### [facility] [address] [place] [address] Dr. Pratibha Stevenson Platelet mean volume (Bld) [Entitic vol] 10.2 fL Normal 9.5-13.5 [facility] Comment on above: Performed By: #### C BC #### [facility] [address] [place] [address] Dr. Pratibha Stevenson PLT 258 103/ul Normal 150-450 [facility] Comment on above: Performed By: #### C BC #### [facility] [address] [place] [address] Dr. Pratibha Stevenson RBC 5.17 106/ul Normal 4.70-6.10 [facility] Comment on above: Performed By: #### C BC #### [facility] [address] [place] [address] Dr. Pratibha Stevenson WBC 8.1 103/ul Normal 4.0-11.0 [facility] Comment on above: Performed By: #### C BC #### [facility] [address] [place], [place] [address] ABD/PELVIS WO CONon [...] SHARON GODINEZ Date: 2022-03-22 23:40 Normal [facility] PROF 14(COMP METB)on 022 Albumin [Mass/Vol] 4.2 g/dL Normal 3.4-5.0 [facility] Comment on above: Performed By: #### L ACT #### [facility] [address] [place], [place] [address] Dr. Pratibha Stevenson Albumin/Globulin [Mass ratio] 1.2 {ratio} Normal [facility] Comment on above: Performed By: #### L ACT #### [facility] [address] [place], [place] [address] Dr. Pratibha Stevenson ALP [Catalytic activity/Vol] 84 U/L Normal 46-116 [facility] Comment on above: Performed By: #### L ACT #### [facility] [address] [address] [address] Pratibha Stevenson ALT [Catalytic activity/Vol] 32 U/L Normal 16-63 [facility] Comment on above: Performed By: #### L ACT #### [facility] [address] [address] [address] Pratibha Stevenson Anion gap [Moles/Vol] 10.6 mmol/L Normal [facility] Comment on above: Performed By: #### L ACT #### [facility] [address] [address] [address] Pratibha Stevenson AST [Catalytic activity/Vol] 18 U/L Normal 15-37 [facility] Comment on above: Performed By: #### L ACT #### [facility] [address] [place] [address] Dr. Pratibha Stevenson Bilirubin [Mass/Vol] 0.4 mg/dL Normal 0.2-1.0 [facility] Comment on above: Performed By: #### L ACT #### [facility] [address] [address] [address] Pratibha Stevenson Calcium [Mass/Vol] 9.8 mg/dL Normal 8.5-10.1 [facility] Comment on above: Performed By: #### L ACT #### [facility] [address] [address] [address] Pratibha Stevenson Chloride [Moles/Vol] 103 mmol/L Normal 98-107 [facility] Comment on above: Performed By: #### L ACT #### [facility] [address] [address] [address] Pratibha Stevenson CO2 [Moles/Vol] 28.2 mmol/L Normal 21.0-32.0 [facility] Comment on above: Performed By: #### L ACT #### [facility] [address] [address] [address] Pratibha Stevenson Creatinine [Mass/Vol] 1.24 mg/dL Normal 0.70-1.30 [facility] Comment on above: Performed By: #### L ACT #### [facility] [address] [address] [address] Pratibha Stevenson EGFR-AF GIBRALTARIAN >60 Normal >=60 [facility] Comment on above: Performed By: #### L ACT #### [facility] [address] [address] [address] Pratibha Stevenson EGFR-NON AF GIBRALTARIAN >60 Normal >=60 [facility] Comment on above: Performed By: #### L ACT #### [facility] [address] [address] [address] Pratibha Stevenson Globulin (S) [Mass/Vol] 3.6 g/dL Normal [facility] Comment on above: Performed By: #### L ACT #### [facility] [address] [address] [address] Pratibha Stevenson Glucose [Mass/Vol] 102 mg/dL Normal 74-106 [facility] Comment on above: Performed By: #### L ACT #### [facility] [address] [address] [address] Pratibha Stevenson Potassium [Moles/Vol] 3.8 mmol/L Normal 3.5-5.1 [facility] Comment on above: Performed By: #### L ACT #### [facility] [address] [address] [address] Pratibha Stevenson Protein [Mass/Vol] 7.8 g/dL Normal 6.4-8.2 [facility] Comment on above: Performed By: #### L ACT #### [facility] [address] [address] [address] Pratibha Stevenson Sodium [Moles/Vol] 138 mmol/L Normal 136-145 [facility] Comment on above: Performed By: #### L ACT #### [facility] [address] [address] [address] Pratibha Stevenson Urea nitrogen [Mass/Vol] 18.0 mg/dL Normal 7.0-18.0 [facility] Comment on above: Performed By: #### L ACT #### [facility] [address] [address] [address] Pratibha Stevenson Urea nitrogen/Creatinine [Mass ratio] 14.5 mg/mg Normal [facility] Comment on above: Performed By: #### L ACT #### [facility] [address] [address] [address] Pratibha Stevenson Vital Signs Date Time Vital Sign Value Performing Clinician Janice daniels 07-21-2022 08:57-0400 Blood Pressure Location Shirley Lue [facility] 07-21-2022 08:57-0400 Diastolic blood pressure 69 mm[Hg] Shirley Lue [facility] 07-21-2022 08:57-0400 Heart rate 74 /min Shirley Lue [facility] 07-21-2022 08:57-0400 Systolic blood pressure 133 mm[Hg] Shirley Lue [facility] 07-13-2022 09:17-0400 Blood Pressure Location Shirley Lue [facility] 07-13-2022 09:17-0400 Diastolic blood pressure 68 mm[Hg] Shirley Lue [facility] 07-13-2022 09:17-0400 Heart rate 73 /min Shirley Lue [facility] 07-13-2022 09:17-0400 Systolic blood pressure 124 mm[Hg] Shirley Lue [facility] Encounters Encounter Date Encounter Type Care Provider Facility Start: 06-14-2023 End: 06-15-2023 [facility] Start: 06-14-2023 End: 06-14-2023 Subsequent hospital visit by physician Manjit Waller [facility] Comment on above: Arrived Start: 06-12-2023 End: 06-13-2023 ambulatory [facility] Start: 06-12-2023 End: 06-12-2023 Subsequent hospital visit by physician Manjit Waller [facility] Comment on above: Arrived Start: 06-09-2023 End: 06-10-2023 ambulatory [facility] Start: 06-09-2023 End: 06-09-2023 Subsequent hospital visit by physician Flash Goodwin PTA [facility] Comment on above: Arrived Start: 06-05-2023 End: 06-06-2023 ambulatory [facility] Start: 05-31-2023 End: 06-01-2023 [facility] Start: 05-29-2023 End: 05-30-2023 [facility] Start: 05-26-2023 End: 05-27-2023 [facility] Start: 05-22-2023 End: 05-23-2023 ambulatory [facility] Start: 05-17-2023 End: 05-18-2023 ambulatory [facility] Start: 03-13-2023 End: 03-13-2023 [facility] Start: 02-16-2023 End: 02-17-2023 ambulatory [facility] Start: 02-16-2023 End: 02-17-2023 Encounter for other preprocedural examination [facility] Start: 08-11-2022 End: 08-11-[address] LATRICIA GUZMAN . Facility: Start: 07-22-2022 End: 07-23-[address] LATRICIA GUZMAN . Facility: Start: 07-21-2022 End: 07-22-2022 ambulatory Shirley Murrell Facility:[facility] Start: 07-21-2022 End: 07-21-2022 Patient encounter procedure Shirley Murrell [facility] Start: 07-20-2022 End: 07-20-2022 ambulatory DR LATRICIA GUZMAN . Facility: Start: 07-13-2022 End: 07-14-2022 ambulatory Shirley Murrell Facility:[facility] [place] Start: 07-13-2022 End: 07-13-2022 Patient encounter procedure Shirley ZionJoselin Murrell [facility] Start: 07-06-2022 End: 07-07-2022 ambulatory SHIRLEY MURRELL . Facility: Start: 05-23-2022 End: 05-24-2022 ambulatory Shirley Murrell Facility:[facility] Start: 05-23-2022 End: 05-23-2022 Patient encounter procedure Shirley Murrell [facility] Start: 05-11-2022 End: 05-12-2022 ambulatory Shirley Murrell Facility:[id number] Start: 05-08-2022 End: 05-12-[address] [...] encounter procedure 06/26/2023 2:30 PM EST Appointment [facility] [address] [place], [place] [id number] Manjit Waller [facility] Start: 06-23-2023 End: 06-23-2023 Patient encounter procedure 06/23/2023 1:45 PM EST Appointment [facility] [address] [place] [id number] Flash Goodwin PTA [facility] Start: 06-19-2023 End: 06-19-2023 Patient encounter procedure 06/19/2023 3:15 PM EST Appointment [facility] [address] [place] [phone] Manjit Waller [facility] Start: 06-14-2023 End: 06-14-2023 Patient encounter procedure 06/14/2023 3:30 PM EST Appointment [facility] [address] [place] [phone] Manjit Waller [facility] Start: 06-12-2023 End: 06-12-2023 Patient encounter procedure 06/12/2023 3:15 PM EST Appointment [facility] [address] [place] [phone] Manjit Waller [facility] Start: 11-29-2022 Influenza vaccination Flu vaccine (# 1) [facility] Start: 2010 Hepatitis C screening Hepatitis C sc reen [facility] Start: 08-18-2007 HIV screening HIV screen [facility] Start: 2004 Depression Screen Depression Screen [facility] Start: 08-18-2003 DTaP/Tdap/Td vaccine (6 - Tdap) DTaP/Tdap/Td vaccine (6 - Tdap) [facility] Start: 1993 Varicella vaccine (1 of 2 - 2-dose childhood series) Varicella vaccine (1 of 2 - 2-dose childhood series) [facility] Start: 02-16-1993 COVID-19 Vaccine (#1) COVID-19 Vacci ne (#1) [facility] Immunizations Immunization Date Immunization Notes Care Provider Khushbu thao 12-26-1997 DTaP, unspecified formulation Shirley Murrell [facility] 12-26-1997 measles, mumps and rubella virus vaccine Shirley Murrell [facility] 01-10-1994 DTaP, unspecified formulation Shirley Lue [facility] 01-10-1994 hepatitis B vaccine, pediatric or pediatric/adolescent dosage Shirley Lue [facility] 01-10-1994 Hib, unspecified formulation Shirley Lue [facility] 01-10-1994 measles, mumps and rubella virus vaccine Shirley Lue [facility] 03-12-1993 Hib, unspecified formulation Shirley Lue [facility] 01-01-1993 hepatitis B vaccine, pediatric or pediatric/adolescent dosage Shirley Lue [facility] 01-01-1993 Hib, unspecified formulation Shirley Lue [facility] 1990 hepatitis B vaccine, pediatric or pediatric/adolescent dosage Shirley Lue [facility] 1990 Hib, unspecified formulation Shirley Lue [facility] Payers Date Payer Category Payer Unknown [id number] 2.16.8 [id number] 1990 Unknown [id number] 2.16.8 40.1.589269.3.579.2.727 1992 Unknown [id number] 2.16.8 40.1.391915.3.579.2.727 1992 Unknown [id number] 2.16.8 40.1.756026.3.579.2.727 1992 Unknown [id number] 2.16.84 0.1.022427.3.579.2.593 1992 Unknown [id number] 2.16.84 0.1.422105.3.579.2.593 1992 Unknown [id number] 2.16.84 0.1.944593.3.579.2.593 1992 Unknown [id number] 2.16.84 0.1.288095.3.579.2.593 1992 Unknown [id number] 2.16.84 0.1.406249.3.579.2.593 1992 Unknown [id number] 2.16.84 0.1.901775.3.579.2.593 1992 Unknown [id number] 2.16.8 40.1.936974.3.579.2.173 1992 Unknown [id number] 2.16.8 40.1.235655.3.579.2.173 1992 Unknown [id number] 2.16.8 40.1.032563.3.579.2.173 1992 Unknown [id number] 2.16.8 40.1.091143.3.579.2.173 1992 Unknown [id number] 2.16.8 40.1.731398.3.579.2.173 1992 Unknown [id number] 2.16.8 40.1.683485.3.579.2.173 1992 Unknown [id number] 2.16.8 40.1.503315.3.579.2.173 1992 Unknown [id number] 2.16.8 40.1.969180.3.579.2.173 1992 Unknown [id number] 2.16.8 40.1.708008.3.579.2.173 1992 Unknown [id number] 2.16.8 40.1.047536.3.579.2.173 1992 Unknown [id number] 2.16.8 40.1.359839.3.579.2.173 1957 Medicaid [id number] 1957 Self-pay [id number] Self-pay Social History Date Type Detail Facility Tobacco smoking status No Smoking Status Entered [facility] Sex Assigned At Male [facility] Start: 07-13-2022 End: 07-21-2022 Tobacco smoking status Light tobacco smoker (finding) [facility] Tobacco smoking status Never [facility] Tobacco smoking status NHIS Tobacco smoking consumption unknown [facility] Start: 1990 Sex Assigned At Not on file [facility] Functional Status Date Assessment Result Facility 07-21-2022 Functional Status N/A [facility] 07-13-2022 Functional Status N/A [facility] 05-12-2022 Functional Status N/A [facility] History of Present illness Narrative 06-14-2023 Manjit Waller A - 06/14/2023 3:30 PM EST Note Date & Type Note Facility 06-14-2023 History of Present illness Narrative [facility] Daily Note Patient: Ethan Donald : 1990 CSN #: [id number] Referring Physician: Jon Reynoso MD Date: 06/14/2023 Diagnosis: R patellar dislocation, S83.004A; R darell-schlatter's disease, M92.521; R knee chondromalacia, 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 -met (05/31/23 R knee AROM 0-130*) Mcc Goal 3: Patient to have improved R LE strength >/=4/5 grossly all major joints and planes for improved knee stability with gait. Dust Box Worker Goal 4: Pt to report ability to walk community distances with no AD and no gait deviations or increase in pain to return to PLOF. -progressing Minutes Tracking: Time In: 1530 Time Out: 1614 Minutes: 44 Timed Code Treatment Minutes: 43 Minutes Manjit Thorpe Date: 06/14/2023 documented in this encounter [facility] History of Present illness Narrative 06-12-2023 Manjit Waller - 06/12/2023 3:15 PM EST Note Date & Type Note Facility 06-12-2023 History of Present illness Narrative [facility] Daily Note Patient: Ethan Donald : 1990 CSN #: [id number] Referring Physician: Jon Reynoso MD Date: 06/12/2023 Diagnosis: R patellar dislocation, S83.004A; R darell-schlatter's disease, M92.521; R knee chondromalacia, 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 -met [facility] Goal 2: Patient to have improved R knee AROM 0-120* with no increase in pain for improved mobility. -met (05/31/23 R knee AROM 0-130*) [facility] Goal 3: Patient to have improved R LE strength >/=4/5 grossly all major joints and planes for improved knee stability with gait. Dust Box Worker Goal 4: Pt to report ability to walk community distances with no AD and no gait deviations or increase in pain to return to PLOF. -progressing Minutes Tracking: Time In: 1515 Time Out: 1558 Minutes: 43 Timed Code Treatment Minutes: 41 Minutes Manjit Thorpe Date: 06/12/2023 documented in this encounter [facility] Discharge instructions 07-21-2022 Note Date & [...] include: ?Spinach. ?Rhubarb. ?Beets. ?Potato chips and austrian fries. ?Nuts. If you regularly take a diuretic medicine, make sure to eat at least 1 2 fruits or vegetables high in potassium each day. These include: ?Avocado. ?Banana. ?Mingo, prune, carrot, or tomato juice. ?Baked potato. [...] Casseroles. Pizza. Lasagna. Frozen meals. Potato chips. Nigerian fries. Summary You can reduce your risk [...] 08/12/2011 Document Revised: 08/07/2019 Document Reviewed: 03/28/2017 [email or web address] Patient Education 2019 [employer]. Follow Up Care 07/20/2022 16:11:07 With:Handy WILEY, DANA Llamas, U[facility] Address: When: Unknown [facility] Discharge instructions 07-13-2022 Note [...] include: ?Spinach. ?Rhubarb. ?Beets. ?Potato chips and austrian fries. ?Nuts. If you regularly take a diuretic medicine, make sure to eat at least 1 2 fruits or vegetables high in potassium each day. These include: ?Avocado. ?Banana. ?Mingo, prune, carrot, or tomato juice. ?Baked potato. [...] Casseroles. Pizza. Lasagna. Frozen meals. Potato chips. Nigerian fries. Summary You can reduce your risk [...] 08/12/2011 Document Revised: 08/07/2019 Document Reviewed: 03/28/2017 [email or web address] Patient Education 2020 [employer]. Follow Up Care 05/23/2022 10:22:28 With:Handy WILEY, Shirley Menchaca, URL, [facility] Address: When: Unknown [facility] History and physical note 05-26-2022 Note Date & Type Note Facility 05-26-2022 Note [id number] #[email or web address] [facility] Evaluation + Plan note Note Date & Type Note Facility Evaluation + Plan note Future Appointments Appointment Date:07/13/2022 09:00:00 AM Scheduled Provider:Shirley Murrell MD Location:[facility] Appointment Type:URO Office Visit [facility] Hospital course Narrative Note Date & Type Note Facility Hospital course Narrative No data available for this section [facility] Hospital Discharge instructions Note Date & Type Note Facility Hospital Discharge instructions No data available for this section [facility] Progress note Note Date & Type Note Facility Progress note No data available for this section [facility] Summary Purpose Family History No Family History Records FoundNo Family History Records FoundNo Family History Records Found Advance Directives No Advanced Directives Records FoundNo Advanced Directives Records FoundNo Advanced Directives Records Found Additional Source Comments Patient Care team informatio n (unrecognized section and content) 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 Start Date End Date Latricia Guzman MD [facility] [place] [address] PCP - General Family Medicine 02/16/23 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 [facility] provides no warranty or guarantee of the accuracy or completeness of information in this document.
--- NOTE | 2024-02-25 11:03 | CT_ITS ---
[address] [address] Patient Name: OLEGARIO DONALD MRN: [id number] date: 1990 Sex: M Assigned Patient Location: ER Current Patient Location: Accession/Order Number: [id number] Exam Date: 02/25/2024 11:35 Report Date: 02/25/2024 12:05 At the request of: NILAY FINNEY Procedure: CT sinus wo con EXAM: CT sinus wo con, CT head/brain wo con CLINICAL INDICATION: bilateral sinus congestion COMPARISON: None TECHNIQUE: Axial CT images of the brain and paranasal sinuses were obtained without contrast. Coronal and sagittal reformats were obtained. Dose reduction techniques were achieved by using automated exposure control and/or adjustment of mA and/or kV according to patient size and/or use of iterative reconstruction technique. FINDINGS: BRAIN: No intracranial hemorrhage, extra-axial fluid collection, hydrocephalus, midline shift, or acute infarction. No other mass effect. Patent basal cisterns. No calvarial fracture. Normal soft tissues. SINUSES: Frontal Sinuses: Clear. Frontal Recesses: Clear. Maxillary Sinuses: Clear. Maxillary Infundibula: Clear. Ethmoid Sinuses: Clear. Sphenoid Sinuses: Clear. Sphenoethmoidal Recesses: Clear. Air-fluid levels: None. Periosteal thickening: None. Nasal Passage: Clear. Asymmetric turbinates with right lee bullosa. Nasal Septum: Deviated towards the left. Lamina Papyracea: Intact. Ethmoidal Notch: No supraorbital pneumatization of ethmoid air cells above the anterior ethmoidal notch. Temporal Bone: Mastoid air cells and middle ear cavities are clear. Orbital Contents: Normal. Soft Tissues: Normal. CT/CT sinus wo con IMPRESSION: 1. No acute intracranial process. 2. Well aerated paranasal sinuses without evidence of acute or chronic sinusitis. Bilateral ostiomeatal complexes are patent. Electronically authenticated by: JUNO TALLEY Date: 02/25/2024 12:05
--- NOTE | 2024-02-25 11:03 | ECG_ITS ---
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
--- NOTE | 2024-02-25 11:04 | CT_ITS ---
[address] [address] Patient Name: OLEGARIO DONALD MRN: [id number] date: 1990 Sex: M Assigned Patient Location: ER Current Patient Location: ER Accession/Order Number: [id number] Exam Date: 02/25/2024 11:35 Report Date: 02/25/2024 12:05 At the request of: NILAY FINNEY Procedure: CT head/brain wo con EXAM: CT sinus wo con, CT head/brain wo con CLINICAL INDICATION: bilateral sinus congestion COMPARISON: None TECHNIQUE: Axial CT images of the brain and paranasal sinuses were obtained without contrast. Coronal and sagittal reformats were obtained. Dose reduction techniques were achieved by using automated exposure control and/or adjustment of mA and/or kV according to patient size and/or use of iterative reconstruction technique. FINDINGS: BRAIN: No intracranial hemorrhage, extra-axial fluid collection, hydrocephalus, midline shift, or acute infarction. No other mass effect. Patent basal cisterns. No calvarial fracture. Normal soft tissues. SINUSES: Frontal Sinuses: Clear. Frontal Recesses: Clear. Maxillary Sinuses: Clear. Maxillary Infundibula: Clear. Ethmoid Sinuses: Clear. Sphenoid Sinuses: Clear. Sphenoethmoidal Recesses: Clear. Air-fluid levels: None. Periosteal thickening: None. Nasal Passage: Clear. Asymmetric turbinates with right lee bullosa. Nasal Septum: Deviated towards the left. Lamina Papyracea: Intact. Ethmoidal Notch: No supraorbital pneumatization of ethmoid air cells above the anterior ethmoidal notch. Temporal Bone: Mastoid air cells and middle ear cavities are clear. Orbital Contents: Normal. Soft Tissues: Normal. CT/CT head/brain wo con IMPRESSION: 1. No acute intracranial process. 2. Well aerated paranasal sinuses without evidence of acute or chronic sinusitis. Bilateral ostiomeatal complexes are patent. Electronically authenticated by: JUNO TALLEY Date: 02/25/2024 12:05
--- NOTE | 2024-02-25 11:05 | CT_ITS ---
[address] [address] Patient Name: OLEGARIO DONALD MRN: [id number] date: 1990 Sex: M Assigned Patient Location: ER Current Patient Location: Accession/Order Number: [id number] Exam Date: 02/25/2024 11:35 Report Date: 02/25/2024 13:13 At the request of: NILAY FINNEY Procedure: CT abdomen pelvis wo con EXAM: CT abdomen pelvis wo con INDICATION: RLQ pain. COMPARISON: CT abdomen pelvis 02/11/2024 TECHNIQUE: Multiple contiguous axial CT images of the abdomen and pelvis were obtained without the use of intravenous contrast. Sagittal and coronal reconstructions were performed. Dose reduction techniques were achieved by using: automated exposure control and/or adjustment of mA and /or kV according to patient size and/or use of iterative reconstruction technique. FINDINGS: Evaluation of visceral organs limited by noncontrast technique. LOWER CHEST: No significant abnormality. ABDOMEN AND PELVIS: LIVER: Unremarkable. BILIARY SYSTEM: Normal gallbladder. No biliary ductal dilatation. PANCREAS: Unremarkable. SPLEEN: Unremarkable. ADRENAL GLANDS: Normal. URINARY SYSTEM: Nonobstructing right renal stones measuring up to 4 mm. Punctate left renal 1 mm stones. No hydronephrosis or urolithiasis. Normal bladder. REPRODUCTIVE: Unremarkable. GASTROINTESTINAL TRACT: Normal caliber bowel. No bowel wall thickening or inflammation. Normal appendix. VESSELS: Nonaneurysmal abdominal aorta. LYMPH NODES: No adenopathy. PERITONEUM: No ascites or pneumoperitoneum. MUSCULOSKELETAL: SOFT TISSUES: Unremarkable soft tissues. BONES: No acute osseous abnormality or suspicious osseous lesion. SALGADO: (series:image) CT/CT abdomen pelvis wo con IMPRESSION: 1. No acute abdominal or pelvic process. 2. Bilateral nephrolithiasis. Electronically authenticated by: MACEY BONE Date: 02/25/2024 13:13
[2024-02-25] MEDS: 0.9 % SODIUM CHLORIDE 1,000 ML 1000 ML IV (11:11)
[2024-02-25 11:14] LABS: Hematocrit 43.9 % (42.0-54.0); Hemoglobin 15.5 g/dL (14.0-18.0); Mean Corpuscular HGB Conc 35.3 g/dL (29.9-35.2); Mean Corpuscular Volume 87.8 fL (80.0-94.0); Mean Platelet Volume 9.9 fL (9.5-13.5); Platelet Count 120 10^3/uL (150-450); White Blood Count 3.8 10^3/uL (4.0-11.0)
[2024-02-25 11:27] LABS: INR 1.09; Prothrombin Time 11.5 sec (9.0-11.6)
[2024-02-25 11:35] LABS: Alanine Aminotransferase 52 U/L (16-63); Albumin Globulin Ratio 0.9; Albumin Level 3.7 g/dL (3.4-5.0); Alkaline Phosphatase 98 U/L (46-116); Anion Gap 17.9; Aspartate Amino Transferase 54 U/L (15-37); BUN Creatinine Ratio 9.9; Bilirubin Total 1.3 mg/dL (0.2-1.0); Calcium 9.1 mg/dL (8.5-10.1); Carbon Dioxide 23.6 mmol/L (21.0-32.0); Chloride 99 mmol/L (98-107); Estimated GFR (African America >60 (>=60 mL/min/1.73m^2); Estimated GFR (Non-African Ame 58 (>=60 mL/min/1.73m^2); Globulin 3.9 g/dL; Glucose 112 mg/dL (74-106); Potassium 3.5 mmol/L (3.5-5.1); Sodium 137 mmol/L (136-145); Total Protein 7.6 g/dL (6.4-8.2); Troponin I High Sensitivity 14.8 pg/mL (4.0-76.1)
[2024-02-25 11:42] LABS: Ethanol <3 mg/dL; Magnesium 2.1 mg/dL (1.8-2.4)
[2024-02-25 11:47] LABS: Lactate/Lactic Acid 0.7 mmol/L (0.4-2.0)
[2024-02-25 11:48] LABS: Band Neutrophils Absolute 0.2 10^3/uL (0.0-0.3); Lymphocytes Absolute Manual 0.45 10^3/uL (1.20-3.80); Monocytes Absolute Manual 0.22 10^3/uL (0.30-0.80); Segmented Neut Absolute Manual 2.88 10^3/uL (1.4-6.5)
--- NOTE | 2024-02-25 17:50 | ED.GENADUL1 ---
HPI HPI - General Adult General Chief complaint: Head Injury Stated complaint: HEAD PAIN, DIZZINESS, FALL Time Seen by Provider: 02/25/24 10:54 Source: patient Mode of arrival: Wheelchair History of Present Illness HPI narrative: The patient presented to us with a 3 to 4 days history of feeling generally weak and having nasal congestion, apparently the patient mentioned that almost 4 days ago when he was already having some upper respiratory tract infection symptoms he had seizure in his sleep and he bit his tongue, he said that his told him that he was moving his upper and lower extremity abnormally The patient has been feeling weak and tired since then but he denies any other complaint of weakness numbness tingling or any other concerns Related Data Home Medications ?Medication ?Instructions ?Recorded ?Confirmed ondansetron HCl 4 mg tablet 4 mg PO Q6H PRN nausea and vomiting 05/11/23 02/11/24 tizanidine 4 mg tablet mg 02/11/24 Previous Rx's ?Medication ?Instructions ?Recorded methocarbamol 750 mg tablet 750 mg PO Q6H PRN pain #20 tabs 02/12/24 Allergies Allergy/AdvReac Type Severity Reaction Status Date / Time naproxen Allergy Unknown Abdominal Verified 02/11/24 22:50 Pain Opioid HPI Opioid Management Most Recent Opioid Data: Last Pain Scale 10 02/11/24 23:31 02/11/24 Review of Systems ROS Status of ROS 10 or more systems reviewed and unremarkable except as noted in history and below [facility] Social History Smoking status: Current every day smoker Little interest or pleasure in doing things: not at all Feeling down, depressed, or hopeless: not at all Exam Narrative Exam Narrative: Nurses notes and vital signs reviewed and patient is not hypoxic. General: Well-appearing and in no apparent distress. Skin: Warm, dry, no pallor noted. No rash. Head: Normocephalic, atraumatic. Neck: Supple, non-tender. Eye: Pupils are equal, round and EOMI. No scleral icterus. Ears, Nose, Mouth, and Throat: TM are clear, no nasal mucosal hypertrophy. Oral mucosa is moist, no posterior oropharynx erythema, uvula is mid-line there is a congested nasal mucosa bilaterally Cardiovascular: Regular Rate and Rhythm without murmur, gallop or rub. Respiratory: No accessory muscle use or respiratory distress. Lungs are clear to auscultation, no wheezing, rales or rhonchi Chest Wall: no tenderness Back: No midline thoracic or lumbar vertebral tenderness. No CVA tenderness Musculoskeletal: normal ROM, no calf or popliteal tenderness, no lower extremity edema/swelling GI: Abdomen is soft, non-distended. Normal bowel sounds. No masses appreciated. No tenderness to palpation. No rebound, guarding, or rigidity noted. Neurological: A&O x4. No cranial nerve dysfunction observed. No truncal ataxia. Moves all extremities. Sensation intact. Psychiatric: Cooperative and interactive. Normal mood and affect. Constitutional Vital Signs, click to edit/add: Last Vital Signs Temp 98.3 F 02/25/24 10:27 Pulse 92 H 02/25/24 10:27 Resp 20 02/25/24 10:27 BP 133/85 02/25/24 12:30 Pulse Ox 98 02/25/24 12:40 O2 Del Method Room Air 02/25/24 10:27 Course Vital Signs Vital signs: Vital Signs Temperature 98.3 F 02/25/24 10:27 Pulse Rate 92 H 02/25/24 10:27 Respiratory Rate 20 02/25/24 10:27 Blood Pressure 141/91 02/25/24 10:27 Pulse Oximetry 96 02/25/24 10:27 Oxygen Delivery Method Room Air 02/25/24 10:27 Temperature 98.3 F 02/25/24 10:27 Pulse Rate 92 H 02/25/24 10:27 Respiratory Rate 20 02/25/24 10:27 Blood Pressure 133/85 02/25/24 12:30 Pulse Oximetry 98 02/25/24 12:40 Oxygen Delivery Method Room Air 02/25/24 10:27 Medical Decision Making [facility] Narrative Medical decision making narrative: CT head well as CT sinuses showed no acute pathology The patient CBC and chemistry showed acute kidney injury and the patient was provided with IV fluid The patient was instructed about rest and hydration he is to continue the Keflex he was provided by his primary care In case of recurring complaint the patient to come back to the ER otherwise the patient will just follow-up with his primary care The patient is to follow up with primary care physician in next 2-3 days or to return to the emergency department should any of the signs or symptoms worsen or new symptoms develop. The patient agrees with the following Diagnosis and Treatment plan and the patient will be discharged home. Lab Data Labs: Lab Results 02/25/24 Range/Units 11:00 WBC 3.8 L (4.0-11.0) 10^3/uL RBC 5.00 (4.70-6.10) 10^6/uL Hgb 15.5 (14.0-18.0) g/dL Hct 43.9 (42.0-54.0) % MCV 87.8 (80.0-94.0) fL MCH 31.0 (25.9-34.0) pg MCHC 35.3 H (29.9-35.2) g/dL RDW 12.0 (11.0-15.0) % Plt Count 120 L (150-450) 10^3/uL MPV 9.9 (9.5-13.5) fL Seg Neuts % (Manual) 76.0 H (43.0-75.0) Band Neutrophils % 6.0 H (0-5) % Lymphocytes % (Manual) 12.0 L (20.5-60.0) % Monocytes % (Manual) 6.0 (1.7-12.0) % Eosinophils % (Manual) 0.0 L (0.9-7.0) % Basophils % (Manual) 0.0 L (0.2-2.0) % Neutrophils # (Manual) 2.88 (1.4-6.5) 10^3/uL Band Neutrophils # 0.2 (0.0-0.3) 10^3/uL Lymphocytes # (Manual) 0.45 L (1.20-3.80) 10^3/uL Monocytes # (Manual) 0.22 L (0.30-0.80) 10^3/uL Eosinophils # (Manual) 0.00 (0.00-0.70) 10^3/uL Basophils # (Manual) 0.00 (0.00-0.10) 10^3/uL PT 11.5 (9.0-11.6) sec INR 1.09 Sodium 137 (136-145) mmol/L Potassium 3.5 (3.5-5.1) mmol/L Chloride 99 (98-107) mmol/L Carbon Dioxide 23.6 (21.0-32.0) mmol/L Anion Gap 17.9 BUN 14.0 (7.0-18.0) mg/dL Creatinine 1.42 H (0.70-1.30) mg/dL Est GFR ( Amer) >60 (>=60 mL/min/1.73m^2) Est GFR (Non-Af Amer) 58 L (>=60 mL/min/1.73m^2) BUN/Creatinine Ratio 9.9 Glucose 112 H (74-106) mg/dL Lactate 0.7 (0.4-2.0) mmol/L Calcium 9.1 (8.5-10.1) mg/dL Magnesium 2.1 (1.8-2.4) mg/dL Total Bilirubin 1.3 H (0.2-1.0) mg/dL AST 54 H (15-37) U/L ALT 52 (16-63) U/L Alkaline Phosphatase 98 (46-116) U/L Troponin I High Sens 14.8 (4.0-76.1) pg/mL Total Protein 7.6 (6.4-8.2) g/dL Albumin 3.7 (3.4-5.0) g/dL Globulin 3.9 g/dL Albumin/Globulin Ratio 0.9 Ethanol Quant <3 mg/dL Discharge Plan Discharge Chief Complaint: Head Injury Clinical Impression: History of seizure, KATARZYNA (acute kidney injury), URTI (acute upper respiratory infection) Patient Disposition: Home, Self-Care Time of Disposition Decision: 12:22 Condition: Good Mode of Transportation: Private Vehicle Prescriptions / Home Meds: No Action ondansetron HCl 4 mg tablet 4 mg PO Q6H PRN (Reason: nausea and vomiting) tizanidine 4 mg tablet methocarbamol 750 mg tablet 750 mg PO Q6H PRN (Reason: pain) Qty: 20 0RF Print Language: Kyrgyz Instructions: Acute Kidney Injury (DC), New-Onset Seizure in Adults (ED) Referrals: Jc Guzman MD [Primary Care Provider] - 1 week Discharge Date/Time: 02/25/24 12:52
== END 2024-02-25 12:52 | disposition home or self-care (01) ==
PROVIDERS: Emergency Provider Emergency Medicine; PCP Family Medicine
DX: J06.9 Acute upper respiratory infection, unspecified (principal); N17.9 Acute kidney failure, unspecified; R56.9 Unspecified convulsions; F17.200 Nicotine dependence, unspecified, uncomplicated
CPT/HCPCS: 36415; 70450; 70486; 74176; 80053; 80307; 80320; 83605; 83735; 84484; 85007; 85027; 85610; 93005; 96360; 96361; 99285

== ENCOUNTER 2024-03-04 12:16 | Outpatient (OUT) | payer SELFPAY ==
[2024-03-04 12:59] LABS: Hematocrit 32.6 % (42.0-54.0); Mean Corpuscular HGB Conc 33.7 g/dL (29.9-35.2); Mean Corpuscular Hemoglobin 30.6 pg (25.9-34.0); Mean Corpuscular Volume 90.8 fL (80.0-94.0); Mean Platelet Volume 10.5 fL (9.5-13.5); Platelet Count 220 10^3/uL (150-450); Red Blood Count 3.59 10^6/uL (4.70-6.10); Red Cell Distribution Width 12.3 % (11.0-15.0); White Blood Count 3.4 10^3/uL (4.0-11.0)
[2024-03-04 13:18] LABS: Band Neutrophils Absolute 0.1 10^3/uL (0.0-0.3); Basophils Abs Manual 0.06 10^3/uL (0.00-0.10); Eosinophils Absolute Manual 0.13 10^3/uL (0.00-0.70); Lymphocytes Absolute Manual 1.12 10^3/uL (1.20-3.80); Monocytes Absolute Manual 0.23 10^3/uL (0.30-0.80)
[2024-03-05 08:13] LABS: Vitamin B12 993 pg/mL (232-1245)
== END 2024-03-04 12:17 | disposition home or self-care (01) ==
LOC: LAB 12:20
PROVIDERS: PCP Family Medicine
DX: D61.818 Other pancytopenia (principal)
CPT/HCPCS: 36415; 82607; 82746; 85007; 85027

== ENCOUNTER 2024-03-07 09:51 | Emergency (ER) | payer SELFPAY ==
[2024-03-07 09:57] VITALS: BP 130/86; PULSE 78; TEMP 36.8; O2SAT 98; O2SAT 99; BMI 32.2
[2024-03-07 09:58] VITALS: BP 130/86; O2SAT 99
[2024-03-07 10:00] VITALS: BP 124/87; O2SAT 96
--- NOTE | 2024-03-07 10:12 | ECG_ITS ---
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
--- NOTE | 2024-03-07 10:26 | PC.NURSE ---
Patient lists allery to Naproxen, Toradol ordered and patient states he has had toradol IV and oral with no adverse reaction. Pharmacy notified.
[2024-03-07 10:30] VITALS: BP 112/79; PULSE 61; O2SAT 96
[2024-03-07] MEDS: METOCLOPRAMIDE HCL 10 MG/2 ML VIAL IVP (10:41)
[2024-03-07] MEDS: DIPHENHYDRAMINE HCL 50 MG/ML VIAL 25 MG IV (10:41)
[2024-03-07 10:47] LABS: Basophils Percent Auto 0.6 % (0.2-2.0); Eosinophils Absolute Auto 0.1 10^3/uL (0.0-0.7); Eosinophils Percent Auto 1.8 % (0.9-7.0); Hematocrit 34.2 % (42.0-54.0); Hemoglobin 11.4 g/dL (14.0-18.0); Immature Granulocytes Abs Auto 0.08 10^3/uL (0.00-0.03); Immature Granulocytes Pct Auto 1.2 % (0.0-0.5); Lymphocytes Absolute Auto 1.3 10^3/uL (1.2-3.8); Lymphocytes Percent Auto 19.7 % (20.5-60.0); Mean Corpuscular HGB Conc 33.3 g/dL (29.9-35.2); Mean Corpuscular Hemoglobin 30.5 pg (25.9-34.0); Mean Corpuscular Volume 91.4 fL (80.0-94.0); Mean Platelet Volume 9.8 fL (9.5-13.5); Monocytes Absolute Auto 0.5 10^3/uL (0.3-0.8); Monocytes Percent Auto 7.4 % (1.7-12.0); Neutrophils Absolute Auto 4.6 10^3/uL (1.4-6.5); Neutrophils Percent Auto 69.3 % (43.0-75.0); Platelet Count 327 10^3/uL (150-450); Red Blood Count 3.74 10^6/uL (4.70-6.10); Red Cell Distribution Width 12.4 % (11.0-15.0); White Blood Count 6.6 10^3/uL (4.0-11.0)
[2024-03-07] MEDS: KETOROLAC TROMETHAMINE 30 MG/ML VIAL 15 MG IVP (10:47)
[2024-03-07] MEDS: MAGNESIUM SULFATE IN WATER 2 GM/50 ML PREMIX IV (10:47)
--- NOTE | 2024-03-07 10:56 | ED.GENADUL1 ---
HPI HPI - General Adult General Chief complaint: Syncope Stated complaint: HEADACHE/SYNCOPE EPISODES Time Seen by Provider: 03/07/24 10:12 Source: patient Mode of arrival: Wheelchair Limitations: no limitations History of Present Illness HPI narrative: Patient presents to ED complaining of near syncopal episodes and a right sided headache. This is a longstanding issue for him and has had multiple tests done about this condition. He has had multiple CAT scans, an MRI with contrast, EEGs and a bone marrow biopsy. He was recently admitted at [facility] in [place] for this condition. He does not have any formal diagnosis of seizures or POTS or anything else like that that he knows of. He was dealing with leukopenia and that is why he got the bone marrow biopsy to rule out a lymphoma or leukemia. Patient said he received a magnesium infusion during his last episode about a week ago and he did not have any passing out episodes for about 5 days. He felt like the magnesium really helped. He called and spoke to Dr. Guzman's office today and told them that he was passing out. Dr. Guzman instructed the patient to come to the emergency room for further evaluation. Upon arrival he did have 1 brief episode where he close his eyes and slumped his head to the side and then jerked awake right away. The nurses witnessed this, I did not. His vital signs remained stable and he states he can hear us talking the entire time when these episodes occur. He is currently alert and oriented no acute distress neurologically intact. No visual changes. Related Data Home Medications ?Medication ?Instructions ?Recorded ?Confirmed ondansetron HCl 4 mg tablet 4 mg PO Q6H PRN nausea and vomiting 05/11/23 03/07/24 ferrous sulfate 325 mg (65 mg 325 mg PO DAILY 03/07/24 03/07/24 iron) tablet (FeroSul) hydrocodone 5 mg-acetaminophen 325 1 tab PO Q6H PRN pain 03/07/24 03/07/24 mg tablet ketorolac 10 mg tablet 10 mg PO Q6H PRN pain 03/07/24 03/07/24 Allergies Allergy/AdvReac Type Severity Reaction Status Date / Time naproxen Allergy Unknown Abdominal Verified 02/11/24 22:50 Pain Opioid HPI Opioid Management Most Recent Opioid Data: Last Pain Scale 10 02/11/24 23:31 10/13/24 Last ED Pain Assessment 03/07/24 11:37 Review of Systems ROS Status of ROS 10 or more systems reviewed and unremarkable except as noted in history and below [facility] Social History Smoking status: Current every day smoker Little interest or pleasure in doing things: not at all Feeling down, depressed, or hopeless: not at all Exam Narrative Exam Narrative: Time Seen: [] Vital Signs: [Per nurse's notes.] General: [Alert] Skin: [Warm, dry, no rash.] Head: [Normocephalic, atraumatic.] Neck: [Supple, trachea midline.] Eye: [Pupils are equal, round and reactive to light, extraocular movements are intact, normal conjunctiva.] Ears, nose, mouth and throat: oral mucosa moist. Cardiovascular: [Regular rate and rhythm, no murmur.] Respiratory: [Lungs are clear to auscultation, respirations are non-labored, breath sounds are equal.] Chest wall: [No tenderness, no deformity.] Gastrointestinal: [Soft, nontender, non distended, normal bowel sounds.] MSK: 5 out of 5 muscle strength x 4 extremities no calf pain or edema Lymphatics: [No lymphadenopathy.] Psychiatric: [Cooperative, appropriate mood & affect.] Neurological: [Alert and oriented to person, place, time, and situation, no focal neurological deficit observed.] Constitutional Vital Signs, click to edit/add: Last Vital Signs Temp 98.2 F 03/07/24 09:57 Pulse 58 L 03/07/24 11:30 Resp 14 03/07/24 11:30 BP 127/85 03/07/24 11:30 Pulse Ox 95 03/07/24 11:30 O2 Del Method Room Air 03/07/24 09:57 Course Vital Signs Vital signs: Vital Signs Temperature 98.2 F 03/07/24 09:57 Pulse Rate 78 03/07/24 09:57 Respiratory Rate 18 03/07/24 09:57 Blood Pressure 130/86 03/07/24 09:57 Pulse Oximetry 99 03/07/24 09:57 Oxygen Delivery Method Room Air 03/07/24 09:57 Temperature 98.2 F 03/07/24 09:57 Pulse Rate 58 L 03/07/24 11:30 Respiratory Rate 14 03/07/24 11:30 Blood Pressure 127/85 03/07/24 11:30 Pulse Oximetry 95 03/07/24 11:30 Oxygen Delivery Method Room Air 03/07/24 09:57 Medical Decision Making MDM Narrative Medical decision making narrative: Patient's labs were negative for any acute findings. I did not do a CT scan of his brain because he has had multiple scans as well as MRIs and EEGs in the past and I did not feel it was indicated. He did feel better after migraine cocktail and magnesium infusion. He had no more passing out episodes. Please follow-up with family doctor or return to ED if worsening symptoms. He was also checked follow-up with his neurologist. Patient is comfortable with care plan for home Differential Diagnosis Differential Diagnosis: Migraine, electrolyte abnormality, syncope, seizure Medical Records Medical records reviewed: Yes I reviewed the patient's medical records Lab Data Lab results reviewed: Yes I reviewed the patient's lab results Labs: Lab Results 03/07/24 Range/Units 10:25 WBC 6.6 (4.0-11.0) 10^3/uL RBC 3.74 L (4.70-6.10) 10^6/uL Hgb 11.4 L (14.0-18.0) g/dL Hct 34.2 L (42.0-54.0) % MCV 91.4 (80.0-94.0) fL MCH 30.5 (25.9-34.0) pg MCHC 33.3 (29.9-35.2) g/dL RDW 12.4 (11.0-15.0) % Plt Count 327 (150-450) 10^3/uL MPV 9.8 (9.5-13.5) fL Neut % (Auto) 69.3 (43.0-75.0) % Lymph % (Auto) 19.7 L (20.5-60.0) % Harlan % (Auto) 7.4 (1.7-12.0) % Eos % (Auto) 1.8 (0.9-7.0) % Baso % (Auto) 0.6 (0.2-2.0) % Neut # (Auto) 4.6 (1.4-6.5) 10^3/uL Lymph # (Auto) 1.3 (1.2-3.8) 10^3/uL Harlan # (Auto) 0.5 (0.3-0.8) 10^3/uL Eos # (Auto) 0.1 (0.0-0.7) 10^3/uL Baso # (Auto) 0.0 (0.0-0.1) 10^3/uL Abs Immat Gran (auto) 0.08 H (0.00-0.03) 10^3/uL Imm/Tot Granulo (auto) 1.2 H (0.0-0.5) % Sodium 141 (136-145) mmol/L Potassium 4.7 (3.5-5.1) mmol/L Chloride 105 (98-107) mmol/L Carbon Dioxide 27.2 (21.0-32.0) mmol/L Anion Gap 13.5 BUN 8.0 (7.0-18.0) mg/dL Creatinine 1.15 (0.70-1.30) mg/dL Est GFR ( Amer) >60 (>=60 mL/min/1.73m^2) Est GFR (Non-Af Amer) >60 (>=60 mL/min/1.73m^2) BUN/Creatinine Ratio 7.0 Glucose 97 (74-106) mg/dL Calcium 8.6 (8.5-10.1) mg/dL Magnesium 2.1 (1.8-2.4) mg/dL Total Bilirubin 0.4 (0.2-1.0) mg/dL AST 54 H (15-37) U/L ALT 93 H (16-63) U/L Alkaline Phosphatase 98 (46-116) U/L Troponin I High Sens 6.1 (4.0-76.1) pg/mL Total Protein 6.7 (6.4-8.2) g/dL Albumin 3.1 L (3.4-5.0) g/dL Globulin 3.6 g/dL Albumin/Globulin Ratio 0.9 ECG Data Attestation: I personally reviewed and interpreted this ECG as follows: Interpretation: EKG INTERPRETATION Time: [] 1001 Rate: [] 68 Rhythm: _ [] Normal sinus rhythm ST segments: _ [] No acute ST elevation or depression T waves: _ [] Ectopy: _ [] P wave/NM interval: _ [] QRS interval: _ [] QT interval: _ [] Comparison: _ [] Comparison EKG date: [] Performed by: [self] Discharge Plan Discharge Chief Complaint: Syncope Clinical Impression: Migraine Patient Disposition: Home, Self-Care Time of Disposition Decision: 12:10 Condition: Good Mode of Transportation: Private Vehicle Prescriptions / Home Meds: No Action ondansetron HCl 4 mg tablet 4 mg PO Q6H PRN (Reason: nausea and vomiting) ferrous sulfate [FeroSul] 325 mg (65 mg iron) tablet 325 mg PO DAILY hydrocodone-acetaminophen 5-325 mg tablet 1 tab PO Q6H PRN (Reason: pain) ketorolac 10 mg tablet 10 mg PO Q6H PRN (Reason: pain) Print Language: Lao Instructions: Migraine Headache (ED) Referrals: Jc Guzman MD [Primary Care Provider] - 1 week Discharge Date/Time: 03/07/24 12:27
[2024-03-07 11:00] VITALS: BP 131/81; PULSE 64; O2SAT 95
[2024-03-07 11:02] LABS: Alanine Aminotransferase 93 U/L (16-63); Albumin Globulin Ratio 0.9; Albumin Level 3.1 g/dL (3.4-5.0); Alkaline Phosphatase 98 U/L (46-116); Anion Gap 13.5; Aspartate Amino Transferase 54 U/L (15-37); Bilirubin Total 0.4 mg/dL (0.2-1.0); Calcium 8.6 mg/dL (8.5-10.1); Carbon Dioxide 27.2 mmol/L (21.0-32.0); Chloride 105 mmol/L (98-107); Estimated GFR (African America >60 (>=60 mL/min/1.73m^2); Estimated GFR (Non-African Ame >60 (>=60 mL/min/1.73m^2); Globulin 3.6 g/dL; Glucose 97 mg/dL (74-106); Magnesium 2.1 mg/dL (1.8-2.4); Potassium 4.7 mmol/L (3.5-5.1); Sodium 141 mmol/L (136-145); Total Protein 6.7 g/dL (6.4-8.2); Troponin I High Sensitivity 6.1 pg/mL (4.0-76.1)
[2024-03-07 11:30] VITALS: BP 127/85; PULSE 58; O2SAT 95
== END 2024-03-07 12:27 | disposition home or self-care (01) ==
PROVIDERS: Emergency Provider Emergency Medicine; PCP Family Medicine
DX: G43.909 Migraine, unspecified, not intractable, without status migrainosus (principal); F17.200 Nicotine dependence, unspecified, uncomplicated
CPT/HCPCS: 36415; 80053; 83735; 84484; 85025; 93005; 96365; 96375; 99284; J1200; J1885; J2765; J3475

== ENCOUNTER 2024-03-12 09:03 | Outpatient (RCR) | payer MEDICAID, SELFPAY ==
[2024-03-12 09:29] LABS: Basophils Absolute Auto 0.1 10^3/uL (0.0-0.1); Basophils Percent Auto 0.8 % (0.2-2.0); Eosinophils Absolute Auto 0.1 10^3/uL (0.0-0.7); Hematocrit 42.6 % (42.0-54.0); Hemoglobin 14.1 g/dL (14.0-18.0); Immature Granulocytes Abs Auto 0.03 10^3/uL (0.00-0.03); Immature Granulocytes Pct Auto 0.4 % (0.0-0.5); Lymphocytes Absolute Auto 1.6 10^3/uL (1.2-3.8); Lymphocytes Percent Auto 21.8 % (20.5-60.0); Mean Corpuscular HGB Conc 33.1 g/dL (29.9-35.2); Mean Corpuscular Hemoglobin 30.2 pg (25.9-34.0); Mean Corpuscular Volume 91.2 fL (80.0-94.0); Mean Platelet Volume 9.2 fL (9.5-13.5); Monocytes Absolute Auto 0.6 10^3/uL (0.3-0.8); Monocytes Percent Auto 8.6 % (1.7-12.0); Neutrophils Absolute Auto 4.9 10^3/uL (1.4-6.5); Neutrophils Percent Auto 67.4 % (43.0-75.0); Platelet Count 419 10^3/uL (150-450); Red Blood Count 4.67 10^6/uL (4.70-6.10); White Blood Count 7.3 10^3/uL (4.0-11.0)
[2024-03-12 10:15] LABS: Alanine Aminotransferase 50 U/L (16-63); Albumin Level 3.8 g/dL (3.4-5.0); Alkaline Phosphatase 97 U/L (46-116); Anion Gap 14.4; Aspartate Amino Transferase 21 U/L (15-37); Bilirubin Total 0.4 mg/dL (0.2-1.0); Calcium 9.6 mg/dL (8.5-10.1); Carbon Dioxide 28.3 mmol/L (21.0-32.0); Chloride 101 mmol/L (98-107); Estimated GFR (African America >60 (>=60 mL/min/1.73m^2); Estimated GFR (Non-African Ame >60 (>=60 mL/min/1.73m^2); Globulin 3.9 g/dL; Glucose 98 mg/dL (74-106); Potassium 4.7 mmol/L (3.5-5.1); Sodium 139 mmol/L (136-145); Total Protein 7.7 g/dL (6.4-8.2)
[2024-03-18 09:40] LABS: Basophils Absolute Auto 0.1 10^3/uL (0.0-0.1); Basophils Percent Auto 1.2 % (0.2-2.0); Eosinophils Absolute Auto 0.1 10^3/uL (0.0-0.7); Eosinophils Percent Auto 2.1 % (0.9-7.0); Hematocrit 40.6 % (42.0-54.0); Hemoglobin 13.6 g/dL (14.0-18.0); Immature Granulocytes Abs Auto 0.01 10^3/uL (0.00-0.03); Immature Granulocytes Pct Auto 0.2 % (0.0-0.5); Lymphocytes Absolute Auto 1.4 10^3/uL (1.2-3.8); Lymphocytes Percent Auto 33.3 % (20.5-60.0); Mean Corpuscular HGB Conc 33.5 g/dL (29.9-35.2); Mean Corpuscular Hemoglobin 30.4 pg (25.9-34.0); Mean Corpuscular Volume 90.6 fL (80.0-94.0); Mean Platelet Volume 9.1 fL (9.5-13.5); Monocytes Absolute Auto 0.4 10^3/uL (0.3-0.8); Neutrophils Absolute Auto 2.2 10^3/uL (1.4-6.5); Neutrophils Percent Auto 53.2 % (43.0-75.0); Platelet Count 272 10^3/uL (150-450); Red Blood Count 4.48 10^6/uL (4.70-6.10); Red Cell Distribution Width 12.9 % (11.0-15.0); White Blood Count 4.2 10^3/uL (4.0-11.0)
[2024-03-18 10:00] LABS: Alanine Aminotransferase 33 U/L (16-63); Albumin Level 3.7 g/dL (3.4-5.0); Alkaline Phosphatase 81 U/L (46-116); Anion Gap 10.7; Aspartate Amino Transferase 19 U/L (15-37); BUN Creatinine Ratio 11.9; Bilirubin Total 0.5 mg/dL (0.2-1.0); Calcium 9.3 mg/dL (8.5-10.1); Carbon Dioxide 28.6 mmol/L (21.0-32.0); Chloride 104 mmol/L (98-107); Estimated GFR (African America >60 (>=60 mL/min/1.73m^2); Estimated GFR (Non-African Ame >60 (>=60 mL/min/1.73m^2); Globulin 3.7 g/dL; Glucose 93 mg/dL (74-106); Potassium 4.3 mmol/L (3.5-5.1); Sodium 139 mmol/L (136-145); Total Protein 7.4 g/dL (6.4-8.2)
[2024-03-25 10:49] LABS: Basophils Absolute Auto 0.1 10^3/uL (0.0-0.1); Basophils Percent Auto 1.1 % (0.2-2.0); Eosinophils Absolute Auto 0.2 10^3/uL (0.0-0.7); Eosinophils Percent Auto 3.4 % (0.9-7.0); Hematocrit 40.5 % (42.0-54.0); Hemoglobin 13.7 g/dL (14.0-18.0); Immature Granulocytes Abs Auto 0.01 10^3/uL (0.00-0.03); Immature Granulocytes Pct Auto 0.2 % (0.0-0.5); Lymphocytes Absolute Auto 1.3 10^3/uL (1.2-3.8); Lymphocytes Percent Auto 27.8 % (20.5-60.0); Mean Corpuscular HGB Conc 33.8 g/dL (29.9-35.2); Mean Corpuscular Volume 91.6 fL (80.0-94.0); Mean Platelet Volume 9.4 fL (9.5-13.5); Monocytes Absolute Auto 0.3 10^3/uL (0.3-0.8); Monocytes Percent Auto 6.5 % (1.7-12.0); Neutrophils Absolute Auto 2.9 10^3/uL (1.4-6.5); Platelet Count 187 10^3/uL (150-450); Red Blood Count 4.42 10^6/uL (4.70-6.10); Red Cell Distribution Width 13.2 % (11.0-15.0); White Blood Count 4.8 10^3/uL (4.0-11.0)
[2024-03-25 11:20] LABS: Alanine Aminotransferase 26 U/L (16-63); Albumin Globulin Ratio 1.1; Albumin Level 3.9 g/dL (3.4-5.0); Alkaline Phosphatase 69 U/L (46-116); Anion Gap 13.8; Aspartate Amino Transferase 11 U/L (15-37); BUN Creatinine Ratio 9.4; Bilirubin Total 0.5 mg/dL (0.2-1.0); Calcium 9.6 mg/dL (8.5-10.1); Carbon Dioxide 28.5 mmol/L (21.0-32.0); Chloride 103 mmol/L (98-107); Estimated GFR (African America >60 (>=60 mL/min/1.73m^2); Estimated GFR (Non-African Ame >60 (>=60 mL/min/1.73m^2); Globulin 3.5 g/dL; Glucose 96 mg/dL (74-106); Potassium 4.3 mmol/L (3.5-5.1); Sodium 141 mmol/L (136-145); Total Protein 7.4 g/dL (6.4-8.2)
== END 2024-04-30 23:59 | disposition home or self-care (01) ==
LOC: LAB 09:03
PROVIDERS: PCP Family Medicine; Visit Provider Family Medicine
DX: R56.9 Unspecified convulsions (principal)
CPT/HCPCS: 36415; 80053; 82728; 83540; 85025

== ENCOUNTER 2024-03-19 20:45 | Outpatient (OUT) | payer MEDICAID, SELFPAY ==
--- OUTSIDE RECORDS SUMMARY | 2024-03-19 20:57 | XMS_ITS | CCD ---
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 Name Role Phone Latricia Garcia Primary Care Physician Shirley Murrell Attending Unavailable JollyeShirley Referring Unavailable LueShirley MJoselin Admitting Unavailable LueShirley Attending Unavailable LueShirley MJoselin Referring Unavailable Lue Shirley MJoselin Attending Unavailable JollyeShirley Attending Unavailable RADHA ., DR ROME Primary Care Unavailable RADHA ., DR ROME Consulting Unavailable RADHA ., DR ROME Admitting Unavailable RADHA ., DR ROME Attending Unavailable MAXIMO, DR SAUMYA Forrester Consulting Unavailable NADANDREW, DR STEPAN Jerome Consulting Unavailable GATITO ., MR GUEVARA Consulting Unavailable CHAGO ROLLINS Consulting Unavailable ROSALINO VIDALES Consulting Unavailable EDIS HERNÁNDEZ Consulting Unavailable RAMO ZEPEDA Consulting Unavailable SHIRLEY CHAUDHARY Consulting Unavailable JADA PEREIRA Consulting Unavailable MAUREEN GARDNER Consulting Unavailable HELGA BAINS Consulting Unavailable LUE .SHIRLEY Admitting Unavailable LULala .SHIRLEY Attending Unavailable RADHA ., DR ROME Primary Care Unavailable LOU, DR RAMO Hopson Consulting Unavailable MAXIMO, DR SAUMYA Forrester Consulting Unavailable HANDY .SHIRLEY Consulting Unavailable RADHA ., DR ROME Primary Care Unavailable MARKER ., DR SOTO Admitting Unavailable MARKER ., DR SOTO Attending Unavailable MARKER ., DR SOTO Consulting Unavailable ROSALINO VIDALES Consulting Unavailable RADHA ., DR ROME Primary Care Unavailable ANGIE ., VALDEZ Admitting Unavailable ANGIE ., VALDEZ Attending Unavailable ANGIE ., VALDEZ Consulting Unavailable YING WALTON Consulting Unavailable RADHA Olivera, DR ROME Primary Care Unavailable BRUCE RAMIREZ Admitting Unavailable BRUCE RAMIREZ Attending Unavailable LEORA PENA Consulting UnavailMarcus Olivera, DR ROME Primary Care Unavailable SHANNON, DR MADDIE Forrester Admitting Unavailable SHANNON, DR MADDIE Forrester Attending Unavailable SHANNON, DR MADDIE Forrester Consulting Unavailable SHARON GODINEZ Consulting Unavailable Latricia Garcia MD Primary Care Provider [phone] MICHELLE, JON E Referring Unavailable HOY, LATRICIA M Primary Care Unavailable HOY, LATRICIA M Primary Care Unavailable MICHELLE, JON E Referring Unavailable HOY, LATRICIA M Primary Care Unavailable MICHELLE, JON E Referring Unavailable HOY, LATRICIA M Primary Care Unavailable MICHELLE, JON E Referring Unavailable MICHELLE, JON E Referring Unavailable HOY, LATIRCIA M Primary Care Unavailable MICHELLE, JON E Referring Unavailable HOY, LATRICIA M Primary Care Unavailable HOY, LATRICIA M Primary Care Unavailable MICHELLE, JON E Referring Unavailable HOY, LATRICIA M Primary Care Unavailable MICHELLE, JON E Referring Unavailable HOY, LATRICIA M Primary Care Unavailable MICHELLE, JON E Referring Unavailable AMY, DOLORES Attending Unavailable HOY, LATRICIA M Primary Care Unavailable HOY, LATRICIA M Primary Care Unavailable MICHELLE, JON E Attending Unavailable MICHELLE, JON E Admitting Unavailable KYM VIDAL Admitting Unavailable AMY, DOLORES Referring Unavailable HOY, LATRICIA M Primary Care Unavailable RONDA HAWLEY Consulting UnavailRUTH Celeste Attending Unavailable Allergies Allergy Classification Reported Allergen(s) Allergy Type Date of Onset Reaction(s) Facility (8 sources) Naproxen; Translations: [naproxen] Drug Allergy 3 Unknown (qualifier value), Nausea And Vomiting [facility] (1 source) Naproxen Drug Allergy [facility] Repository Medications Current Medications Medication Drug Class(es) Dates Sig (Normalized) Sig (Original) Acetaminophen (1 source) Start: 02-27-2024 acetaminophen (TYLENOL) tablet 650 mg acetaminophen 325 mg / HYDROcodone bitartrate 5 mg oral tablet (1 source) Opioid Agonist Start: 03-02-2024 End: 03-05-2024 HYDROcodone-acetam inophen (NORCO) 5-325 MG per tablet Indications: Hip pain, unspecified laterality Take 1 tablet by mouth every 6 hours as needed for Pain for up to 3 days. Intended supply: 3 days. Take lowest dose possible to manage pain Max Daily Amount: 4 tablets 10 tablet 03/02/2024 03/05/2024 Active 100 ml calcium gluconate 20 mg/ml injection (1 source) Start: 02-29-2024 2,000 mg, IntraVENous, at 50 mL/hr, Administer over 120 Minutes, PRN, See admin instructions, Starting on Mon02/29/24 at 1101, Serum IONIZED Ca Replacement Action 0.80 -1.00 mmol/L Calcium Gluconate 2g IV over 2 hours 0.79 mmol/L or less Calcium Gluconate 2g IV x 2 doses (each 2g over 2 hours) [4g total dose] AND notify provider Central line is preferred Infuse every 1 gram over 1 hour Repeat IONIZED calcium level in the AM the following day Protocol not for use in patients with a CrCl celecoxib 200 mg oral capsule (4 sources) Nonsteroidal Anti-inflammatory Drug take 1 capsule by mouth once daily celecoxib (CELEBREX) 200 MG capsule Take 1 capsule by mouth daily Active cephalexin 500 mg oral tablet (2 sources) Cephalosporin Antibacterial Start: 02-22-2024 take 1 tablet by mouth at bedtime Cephalexin 500 MG TABS Take 500 mg by mouth in the morning and at bedtime 02/22/2024 Active Start: 05-12-2022 take 1 capsule by [facility] every twenty-four hours Keflex 500 mg Cap 500 mg = 1 cap(s), Oral, q24hr, Take 1 pill the day before the procedure and 1 pill after the procedure., # 2 cap(s), Refills(s) 0, Pharmacy: [id number] Start Date: 05/12/22 Status: Ordered 0.4 ml enoxaparin sodium 100 mg/ml prefilled syringe (1 source) Low Molecular Weight Heparin Start: 02-27-2024 inject 40 mg by subcutaneous injection once daily 40 mg, SubCUTAneous, DAILY, First dose on Mon02/27/24 at 0900, Until Discontinued, Indication of Use: Prophylaxis-DVT/PE, Administer by deep subCUTAneous injection with pt lying down. Alternate injection sites on abdominal wall. Do not rub site after injection. Check with provider prior to any invasive procedure., On hold since Caro 02/29/2024 at 1050 until manually unheld ferrous sulfate 325 mg oral tablet (2 sources) Start: 03-02-2024 take 1 tablet by mouth once daily at breakfast ferrous sulfate (IRON 325) 325 (65 Fe) MG tablet Take 1 tablet by mouth daily (with breakfast) 30 tablet 1 03/02/2024 Active Start: 02-29-2024 take 325 mg by mouth twice daily at mealtime 325 mg, Oral, 2 TIMES DAILY WITH MEALS, First dose on Caro 02/29/24 at 1730, Until Discontinued gabapentin 600 mg oral tablet (4 sources) Anti-epileptic Agent take 0.5 tablet by mouth twice daily gabapentin (NEURONTIN) 600 MG tablet Take 0.5 tablets by mouth 2 times daily. Active ketorolac tromethamine 10 mg oral tablet (4 sources) Nonsteroidal Anti-inflammatory Drug, Cyclooxygenase Inhibitor Start: 03-02-20 take 1 tablet by mouth every six hours as needed for pain ketorolac (TORADOL) 10 MG tablet Take 1 tablet by mouth every 6 hours as needed for Pain 10 tablet 03/02/2024 Active Start: 02-28-2024 End: 03-04-2024 30 mg, IntraVENous, EVERY 6 HOURS PRN, Starting on Mon02/28/24 at 0909, Until Mon03/04/24 at 0908, Pain Mild (1-3), Pain Moderate (4-6), Do not administer for more than 5 days. Start: 02-27-2024 15 mg, IntraVE Nous, ONCE, 1 dose, On Mon02/27/24 at 2100, Do not administer for more than 5 days. Start: 02-27-2024 30 mg, IntraVE Nous, ONCE, 1 dose, On Mon02/27/24 at 0400, Do not administer for more than 5 days. 1 ml LORazepam 2 mg/ml injection (1 source) Benzodiazepine Start: 02-27-2024 4 mg, IntraVENous, EVERY 5 MIN PRN, Starting on Mon02/27/24 at 0032, Until Discontinued, Seizures, May repeat dose (4 mg) X 1 for seizures lasting more than 5 minutes. Notify provider if administered for seizure. 24 hr nicotine 0.583 mg/hr transdermal system (2 sources) Cholinergic Nicotinic Agonist Start: 03-03-2024 apply 1 dose transdermal route once daily nicotine (NICODERM CQ) 14 MG/24HR Place 1 patch onto the skin daily 30 patch 1 03/03/2024 Active Start: 02-27-2024 apply 1 dose transde rmal route once daily at bedtime 1 patch, TransDERmal, Administer over 24 Hours, DAILY, First dose on Mon02/27/24 at 0900, Apply new patch to nonhairy, clean, dry skin on the upper body or upper outer arm. Rotate patch sites. Notify pharmacy if patient or provider prefers patch to be removed at bedtime and replaced in the morning. Hazardous Medication -- Refer to facility policy for handling and disposal. ondansetron 4 mg disintegrating oral tablet (2 sources) Serotonin-3 Receptor Antagonist Start: 01-31-2024 take 1 tablet by mouth once daily ondansetron (ZOFRAN-ODT) 4 MG disintegrating tablet Take 1 tablet by mouth daily 01/31/2024 Active Start: 07-21-2022 take 1 tablet by benito th every six hours as needed for nausea Zofran 4 mg Tab 4 mg = 1 tab(s), Oral, q6hr, PRN Nausea/Vomiting, # 20 tab(s), Refills(s) 0, called to pharmacy (Rx) Start Date: 07/21/22 Status: Ordered ondansetron (ZOFRAN-ODT) disintegrating tablet 4 mg (1 source) Start: 02-27-2024 ondansetron (ZOFRAN-ODT) disintegrating tablet 4 mg pantoprazole 20 mg delayed release oral tablet (4 sources) Proton Pump Inhibitor take 2 tablets by mouth once daily pantoprazole (PROTONIX) 20 MG tablet Take 2 tablets by mouth nightly Active polyethylene glycol 3350 05651 mg powder for oral solution (2 sources) Osmotic Laxative Start: 02-27-2024 End: 05-03-2024 take 1 dose by mouth once daily as needed for constipation polyethylene glycol (GLYCOLAX) 17 g packet Take 1 packet by mouth daily as needed for Constipation 527 g 1 03/02/2024 05/03/2024 Active Potassium Chloride (1 source) Start: 02-27-2024 potassium chloride (KLOR-CON M) extended release tablet 40 mEq tamsulosin hydrochloride 0.4 mg oral capsule (1 source) alpha-Adrenerg ic Mci Start: 07-21-2022 take 1 capsule by mouth once daily tamsulosin 0.4 mg Cap 0.4 mg = 1 cap(s), Oral, Daily, # 30 cap(s), Refills(s) 0, called to pharmacy (Rx) Start Date: 07/21/22 Status: Ordered divalproex sodium 500 mg delayed release oral tablet (1 source) Mood Stabilizer, Anti-epileptic Agent Start: 02-27-2024 take 1 dose by mouth twice daily 500 mg, Oral, EVERY 12 HOURS SCHEDULED (2 times per day), First dose on Mon02/27/24 at 2100, Until Discontinued, Do not crush or break., On hold since Mon02/29/2024 at 0851 until manually unheld Completed/Discontinued Medications Medication Drug Class(es) Dates Sig (Normalized) Sig (Original) cyclobenzaprine hydrochloride 10 mg oral tablet (2 sources) Muscle Relaxant Start: 02-27-2024 End: 02-27-2024 take 1 dose by mouth once 5 mg, Oral, ONCE, 1 dose, On Mon02/27/24 at 2100 Start: 07-21-2022 cyclobenzaprin e Oral Start Date: 07/21/22 Status: Ordered 2 ml fentaNYL 0.05 mg/ml injection (1 source) Opioid Agonist Start: 03-01-2024 End: 03-01-2024 PRN, Starting on Mon03/01/24 at 0857, Until Mon03/01/24 at 0900, Intra-op folic acid 5 mg/ml injectable solution (2 sources) Start: 02-29-2024 1 mg, IntraVEN ous, DAILY, First dose (after last modification) on Mon02/29/24 at 0900, Until Discontinued Start: 02-28-2024 End: 02-29-2024 take 1 mg by mouth once daily 1 mg, Oral, DAILY, First dose on Mon02/28/24 at 0900, Until Discontinued gadoteridol (PROHANCE) injection 20 mL (1 source) Start: 02-28-2024 End: 02-28-2024 take 1 dose intravenously once 20 mL, IntraVENous, IMG ONCE PRN, 1 dose, Starting on Mon02/28/24 at 1822, Until Mon02/28/24 at 1822, Other 100 ml magnesium sulfate 10 mg/ml injection (3 sources) Start: 02-29-2024 End: 03-01-2024 1,000 mg, IntraVENous, at 100 mL/hr, Administer over 1 Hours, ONCE, On Mon03/01/24 at 1200, For 1 dose, Recommended infusion rate not to exceed 1,000 mg (milligrams) per hour. Start: 02-27-2024 2,000 mg, Intr aVENous, at 25 mL/hr, Administer over 2 Hours, PRN, Other, Magnesium Replacement, Starting on Mon02/27/24 at 0032, Mag Lab Replacement Action 1.4-1.6 mg/dL 2,000 mg Total Dose Given as 1,000 mg IVPB x 2 doses or 2,000 mg IVPB x 1 dose 1.0-1.3 mg/dL 4,000 mg Total Dose Given as 1,000 mg IVPB x 4 doses or 2,000 mg IVPB x 2 doses Less than 1.0 mg/dL CALL PHYSICIAN and give 4,000 mg Total Dose Given as 1,000 mg IVPB x 4 doses or 2,000 mg IVPB x 2 doses Infuse at 1,000 mg/hr Repeat Mag level 1 hour after final administration Protocol not for use in Patients with CrCl less than 30ml/min, On hold since Caro 02/29/2024 at 1438 until manually unheld methocarbamol 750 mg oral tablet (4 sources) Muscle Relaxant End: 03-02-2024 take 1 tablet by mouth twice daily methocarbamol (ROBAXIN) 750 MG tablet Take 1 tablet by mouth 2 times daily 03/02/2024 Discontinued (Stop Taking at Discharge) 2 ml midazolam 1 mg/ml injection (1 source) Benzodiazepine Start: 03-01-2024 End: 03-01-2024 PRN, Starting on Mon03/01/24 at 0857, Until Mon03/01/24 at 0900, Intra-op phenol 14 mg/ml mucosal spray (1 source) Start: 03-02-2024 Mouth/Throat, 4 TIMES DAILY PRN, Starting on Mon03/02/24 at 0930, Until Discontinued, Pain 5 ml sodium chloride 9 mg/ml injection (3 sources) Start: 02-27-2024 10 mL, IntraVE Nous, EVERY 12 HOURS SCHEDULED (2 times per day), First dose on Mon02/27/24 at 0900, Until Discontinued Start: 02-27-2024 IntraVENous, a t 5-250 mL/hr, PRN, if patient receiving piggyback infusions and maintenance fluids are not ordered, Starting on Mon02/27/24 at 0032, For piggyback infusion, administer at same rate as piggyback for a total of 25 mL. Enter 25 mL into dose field and piggyback rate into rate field of order. If piggyback is infusing at a rate less than 100 mL/hr, enter 25 mL into dose field and 100 mL/hr into rate field of order. Start: 02-27-2024 take 10 mL intraveno usly once as needed 10 mL, IntraVENous, PRN, Starting on Mon02/27/24 at 0032, Until Discontinued, Line Care, After every IV line use valproate (DEPACON) 1,500 mg in sodium chloride 0.9 % 100 mL IVPB (1 source) Start: 02-27-2024 End: 02-27-2024 1,500 mg, IntraVENous, at 10 0 mL/hr, Administer over 60 Minutes, ONCE, On Mon02/27/24 at 1230, For 1 dose Problems Active Problems Problem Classification Problem Date Documented Da te Episodic/Chronic Abdominal pain (8 sources) Unspecified abdominal pain; Translations: [Right lower quadrant pain] Onset: 07-20-2022 Episodic Acute and unspecified renal failure (1 source) Acute kidney failure, unspecified; Translations: [ACUTE KIDNEY FAILURE UNSPECIFIED] Onset: 07-14-2022 Episodic Calculus of urinary tract (14 sources) Ureteric stone; Translations: [Calculus of ureter] Onset: 07-06-2022 Episodic Deficiency and other anemia (3 sources) Pancytopenia; Translations: [Other pancytopenia] Onset: 02-28-2024 03-02-2024 Chronic Deficiency and other anemia (1 source) Other pancytopenia; Translations: [Other pancytopenia] Onset: 02-28-2024 Chronic Diseases of white blood cells (1 source) Elevated white blood cell count, unspecified; Translations: [ELEVATED WHITE BLOOD CELL COUNT UNS] Onset: 07-14-2022 Chronic Epilepsy; convulsions (3 sources) Unspecified convulsions; Translations: [Seizure] Onset: 02-26-2024 02-26-2024 Episodic Fluid and electrolyte disorders (1 source) Dehydration; Translations: [DEHYDRATION] Onset: 07-14-2022 Episodic Headache; including migraine (1 source) Headache; including migraine; Translations: [Headache, unspecified] Onset: 02-26-2024 Miscellaneous mental health disorders (2 sources) Multiple [...] [SHORTNESS OF BREATH] Onset: 07-22-2022 Episodic Other non-traumatic joint disorders (1 source) Hip pain; Translations: [Pain in unspecified hip] 03-02-2024 Episodic Other non-traumatic joint disorders (1 source) Pain in unspecified hip; Translations: [Pain in unspecified hip] Onset: 02-27-2024 Episodic Other upper respiratory infections (4 sources) [...] Problem Classification Problem Date Documented Date Episodic/Chronic Joint disorders and dislocations; trauma-related (2 sources) Unspecified dislocation of right patella, initial encounter; Translations: [Unspecified dislocation of right patella, initial encounter] Onset: 06-09-2023 Episodic Residual codes; unclassified (1 source) Other specified postprocedural states; Translations: [Other specified postprocedural states] Onset: 03-13-2023 Episodic Results Test Name Value Interpretation Reference Range Facility DIAGNOSTIC QUAL BCR-ABL1 ASS AY W/ REFLEXon 03-12-2024 DIAGNOSTIC QUAL BCR-ABL1 ASSAY, RESULT Not detected Normal [facility] Comment on above: Result Comment: Ther e is no evidence of major (p210, e13a2, or e14a2), minor (p190, e1a2), or micro (e19a2) BCR-ABL1 fusion transcripts by RT-PCR analysis. This result does not entirely exclude the possibility of BCR-ABL1 fusion transcripts other than e1a2, e13a2, e14a2, and e19a2, or transcripts below the limit of detection. This result has been reviewed and approved by Trinity Sanches M.D. INTERPRETIVE INFORMATION: Diagnostic Qualitative BCR-ABL1 Assay with Reflex to p190 or p210 Quantitative Assays This assay is designed to detect the presence of BCR-ABL1 translocations with breakpoints in the major breakpoint cluster region (p210 fusion), minor breakpoint cluster region (p190 fusion), or the micro breakpoint cluster region (p230 fusion) for screening purpose at the time of an initial diagnosis. METHODOLOGY: RNA is isolated from whole blood or bone marrow and reverse transcribed. The resulting cDNA is subjected to multiplex PCR amplification with primers designed to amplify p190, p210, or p230 BCR-ABL1 fusion transcripts involving ABL1 exon 2. The ABL1 reference gene is also amplified for specimen quality associate and to ensure the integrity of RNA. The PCR products are resolved by capillary electrophoresis and evaluated for the presence of amplicons that indicate a positive result. A positive common p210 or p190 result will trigger either quantitative p210 or p190 testing to provide a quantitative level as the diagnostic baseline to monitor treatment response. The p210 transcript level is reported as the percent International Scale (%IS). The p190 transcript level is reported as the normalized copy numbers (NCN). These quantitative results are integrated into the final report. If the initial qualitative testing is negative, or a rare p230 from is detected, then no reflex testing will be performed. ANALYTICAL SENSITIVITY: Fusion Transcripts Analytical Sensitivity Minor (e1a2) NCN = 0.65685 Major (e13a2) %IS = 0.0040 Major (e14a2) %IS = 0.0047 Micro (e19a2) 1 x 10-5 RNA molecules CLINICAL SENSITIVITY: Estimated to be greater than 99 percent for chronic myelogenous leukemia (CML). LIMITATIONS: Rare BCR-ABL1 fusions with alternative breakpoints (e.g., any fusion transcripts involving ABL1 other than exon 2) are not detected by this test. This qualitative test is designed as a screening test for initial diagnosis of chronic myeloid leukemia (CML) or acute lymphoblastic leukemia/lymphoma (ALL). This test is not intended to monitor therapeutic response or to detect minimal residual disease (MRD). Low-level fusion transcripts indicating MRD might not be detected by inappropriate use of this test. Results of this test must always be interpreted within the clinical context and other relevant data and should not be used alone for a diagnosis of malignancy. This test was developed and its performance characteristics determined by [employer]. It has not been cleared or approved by the U.S. Food and Drug Administration. This test was performed in a CLIA-certified laboratory and is intended for clinical purposes. Performed By: [facility] [facility] [address] [place] [address] [employer]: Sunny Roman MD, PhD [place] Number: [id number] Performed By: #### D QBC2 #### [facility] [address] [facility] [address] DIAGNOSTIC QUAL BCR-ABL1 ASSAY, SOURCE Not Provided Normal [facility] Comment on above: Result Comment: AMEN DED on 03/12/24: Result in error was LAV Whole Blood, verified at 09:43 on 03/01/24. Performed By: #### D QBC2 #### [facility] [address] [facility] [address] CHROMOSOME ANAL. BONE MARROW on 03-11-2024 CHROMOSOME ANAL. 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 There were no abnormal clones detected within the limits of the technology utilized in this study. This result has been reviewed and approved by Akash Smith, PhD, [facility] [place] portion of this analysis was performed at the following location(s): [employer] [facility]-[place]1 [employer] [facility] [employer] [facility] INTERPRETIVE INFORMATION: Chromosome Analysis, Bone Marrow This test was developed and its performance characteristics determined by [employer]. It has not been cleared or approved by the [place] Food and Drug Administration. This test was performed in a CLIA certified laboratory and is intended for clinical purposes. EER Chromosome Analysis Bone Marrow See Note Authorized individuals can access the [employer] Enhanced Report using the following link: [email or web address] Performed By: [employer] [facility] [address] [place] [address] [employer]: Sunny Roman MD, PhD CLIA Number: [id number] Performed By: #### M MMP, CRBM2, LPBM2 #### [facility] [address] [facility] [address] MYELOID MALIGANCIES MUTATION PANEL BY WALTOP 03-08-2024 EER MYELOID MALIGNANCIES PANEL BY NGS See Note Normal [facility] Comment on above: Result Comment: Auth orized individuals can access the [employer] Enhanced Report using the following link: [email or web address] Performed By: [employer] [facility] [address] [place] [address] [employer]: Sunny Roman MD, PhD CLIA Number: [id number] Performed By: #### M MMP, CRBM2, LPBM2 #### [facility] [address] [facility] [address] MYELOID MALIGNANCIES PANEL INTERP See Note Normal [facility] Comment on above: Result Comment: Myeloid Malignancies Mutation Panel NGS Submitted diagnosis or diagnosis under consideration for variant interpretation: Pancytopenia TIER 1: Variants of Known Clinical Significance in Hematologic Malignancies None found TIER 2: Variants of Unknown Clinical Significance in Hematologic Malignancies 1. NSD1 c.7576C>T, p.[id number] ([id number]) VAF: 49.0% This variant has not been reported in hematologic malignancies, to the best of our knowledge. 2. KMT2A c.5573G>A, p.[id number] ([id number]) VAF: 47.8% This variant has not been reported in hematologic malignancies, to the best of our knowledge. This result has been reviewed and approved by Zulay Abdi M.D. Low coverage regions: Listed below are regions where the average sequencing depth (number of times a particular nucleotide is sequenced) in at least 20% of the [id number] is less than our stringent cutoff of 300. Sensitivity for detection of low allelic frequency variants may be reduced in areas with reduced depth of coverage. WT1([id number]) exon 6 BACKGROUND INFORMATION: Myeloid Malignancies Mutation Panel by Next Generation Sequencing CHARACTERISTICS: Myeloid malignancies are clonal disorders of hematopoietic stem and progenitor cells that include myelodysplastic syndromes (MDSs), myeloproliferative neoplasms (MPNs), myelodysplastic/myeloproliferative neoplasms (MDS/MPNs), and acute myeloid leukemia (AML). Recent studies have identified recurrently mutated genes with diagnostic and/or prognostic impact in myeloid malignancies. The presence of certain mutations may inform clinical management. This multigene panel by massively parallel sequencing (next generation sequencing) is a more cost-effective approach when compared to the cost of multiple single gene tests. This test can be used to complement the morphologic and cytogenetic workup of myeloid malignancies. GENES TESTED: ANKRD26; ASXL1; ASXL2; BCOR; BCORL1; BRAF; CALR; CBL; CBLB; CEBPA; CSF3R; CUX1*; DDX41; DNMT1*; DNMT3A; ELANE; ETNK1; ETV6; EZH2; FBXW7; FLT3; GATA1; GATA2; GNAS; HNRNPK; IDH1; IDH2; IL7R; JAK1; JAK2; JAK3; KDM6A*; KIT; KMT2A; KRAS; LUC7L2; MPL; NOTCH1; NPM1*; NRAS; NSD1; PHF6; PIGA; PPM1D; ZXJT95O; PRPF8; PTPN11; RAD21; RUNX1; SAMD9; SAMD9L; SETBP1; SF3B1; SH2B3; SMC1A; SMC3; SRSF2; STAG2; STAT3; STAT5B*; SUZ12*; TET2; TP53; U2AF1; U2AF2; UBA1; WT1; ZRSR2. *One or more exons of the preferred transcript were not covered by sequencing for the indicated gene; see limitations section below. METHODOLOGY: Genomic DNA was isolated from peripheral blood or bone marrow and then enriched for the targeted exonic regions of the tested genes. The variant status of the targeted genes was determined by massively parallel sequencing. The hg19 (GRCh37) human genome assembly was used as a reference for identifying genetic variants. Clinically significant variants and variants of uncertain significance called in the preferred transcript are reported. LIMITATIONS: Variants outside the targeted regions or below the limit of detection are not identified. Variants in regions that are not included in the preferred transcript for the targeted genes are not detected. In some cases, variants may not be identified due to technical limitations in the presence of pseudogenes or in repetitive or homologous regions. It is also possible some insertion/deletion variants may not be identified. Benign or likely benign variants in the preferred transcript are not reported. The following regions were not sequenced due to technical limitations of the assay: CUX1 ([id number]) exon 24 DNMT1 ([id number]) exon 5 KDM6A ([id number]) exon 13 NPM1 ([id number]) exon 1 STAT5B ([id number]) exons 6-9 SUZ12 ([id number]) exons 1-9 LIMIT OF DETECTION (LOD): 5 percent variant allele fraction (VAF) for single nucleotide variants (SNV) and small variants less than 24 base pairs (bp). Variants greater than 24bp may be detected at LOD, but the analytical sensitivity may be reduced. ANALYTICAL SENSITIVITY: The positive percent agreement (PPA) estimate for the respective variant classes (with 95 percent credibility region) are listed below. Genes included on this test are a subset of a larger methods-based validation from which the PPA values are derived. Single nucleotide variants (SNVs): 96.9 percent (95.1-98.1 percent) Insertions/duplications (1-24bp): 98.1 percent (95.5-99.3 percent) Insertions/duplications (greater than 24bp): greater than 99 percent (92.9-100.0 percent) Deletions (1-24bp): 96.7 percent (92.8-98.7 percent) Deletions (greater than 24bp): 90 percent (79.5-96.1 percent) Multinucleotide variants (MNVs): 97 percent (93.0-99.0 percent) FLT3 ITDs: Greater than 99 percent (97.1-100.0 percent) CLINICAL DISCLAIMER: Results of this test must always be interpreted within the context of clinical findings and other relevant data an (more content not included)... Performed By: #### M MMP, CRBM2, LPBM2 #### [facility] [address] [facility] [address] MYELOID MALIGNANCIES PANEL SPECIMEN Bone Marrow Normal [facility] Comment on above: Performed By: #### M MMP, CRBM2, LPBM2 #### [facility] [address] [facility] [place] [place] [address] MYELOID MALIGNANCY PROPOSED DIAGNOSIS Pancytopenia Normal [facility] Comment on above: Performed By: #### M MMP, CRBM2, LPBM2 #### [facility] [address] [facility] [place] [address] LEUKEMIA/LYMPHOMA PHENO BLOO Don 03-05-2024 LEUKEMIA/LYMPHOMA PHENO BLOOD SEE BELOW Normal [facility] Comment on above: Result Comment: Leuk /Lymph Phenotype, Source Blood Number Of Markers 26 marker Leuk/Lymph Phenotype, Impression See Note SAMPLE: Peripheral Blood IMPRESSION: 1. Low viability and paucicellular specimen with no abnormal myeloid, B cell, T cell, or NK cell population identified. See comment 1. COMMENT: 1. As flow cytometry is an ancillary study, morphologic and clinical correlation will be required to make the final diagnosis. These results are similar to a previous bone marrow flow cytometry study from 03-01-2024 ( POPULATION PHENOTYPE: 1. N/A Due to low viability and marked paucicellularity, the findings from this study should be interpreted with appropriate caution. ANALYSIS Differential: Lymphocytes: 31% Monocytes: 9.7% Granulocytes: 57% Blasts: 0.27% (normal patterns) Lymphocytes: B-cells: 10% T-cells: 84% NK-cells: 5.9% (small subset loss of CD16 without any other abnormality) [place]:Lambda Ratio: approx. 2:1 CD4:CD8 Ratio: approx. 8:1 Viability: 58% Markers run: HLA-DR, [place], Lambda, CD2, CD3, CD4, CD5, CD7, CD8, CD10, CD11b, CD13, CD14, CD16, CD19, CD20, CD23, CD33, CD34, CD38, CD45, CD56, CD57, CD64, CD117, CD200 Num of Markers Run: 26 This result has been reviewed and approved by Kostas Miller M.D., Ph.D. 03/05/2024 INTERPRETIVE INFORMATION: Leuk/Lymph Phenotyping, Flow Cytometry This test was developed and its performance characteristics determined by [employer]. It has not been cleared or approved by the US Food and Drug Administration. This test was performed in a CLIA certified laboratory and is intended for clinical purposes. Performed By: [employer] [facility] [address] [place] [address] [employer]: Sunny Roman MD, PhD CLIA Number: [id number] Performed By: #### C , WS #### [facility] [address] [place] [address] LEUKEMIA/LYMPHOMA PHENO BONE MARROWon 03-03-2024 LEUKEMIA/LYMPHOMA PHENO BONE MARROW SEE BELOW Normal [facility] Comment on above: Result Comment: Leuk /Lymph Phenotype, Source Bone Marrow Number Of Markers 29 marker Leuk/Lymph Phenotype, Impression See Note SAMPLE: Bone Marrow IMPRESSION: 1. No abnormal myeloid, B cell, T cell, NK cell, or plasma cell population identified. See comment 1. COMMENT: 1. As flow cytometry is an ancillary study, morphologic and clinical correlation will be required to make the final diagnosis. POPULATION PHENOTYPE: 1. N/A The sample was received clotted which may limit the sensitivity of this assay. ANALYSIS Viability: 82% Markers run: cKappa, cLambda, HLA-DR, [place], Lambda, CD2, CD3, CD4, CD5, CD7, CD8, CD10, CD11b, CD13, CD14, CD16, CD19, CD20, CD23, CD33, CD34, CD38, CD45, CD56, CD57, CD64, CD117, CD138, CD200 Num of Markers Run: 29 This result has been reviewed and approved by Kostas Miller M.D., Ph.D. 03/03/2024 INTERPRETIVE INFORMATION: Leuk/Lymph Phenotyping, Flow Cytometry This test was developed and its performance characteristics determined by [employer]. It has not been cleared or approved by the US Food and Drug Administration. This test was performed in a CLIA certified laboratory and is intended for clinical purposes. Performed By: [employer] [facility] [address] [place] [address] [employer]: Sunny Roman MD, PhD CLIA Number: [id number] Performed By: #### M MMP, CRBM2, LPBM2 #### [address] [address] ANION GAPon 03-02-2024 Anion gap [Moles/Vol] 9.0 mmol/L Normal 8.0-16.0 [facility] Comment on above: Result Comment: ANIO N GAP = Sodium -(Chloride + CO2) Performed By: #### C RP, WSR #### [facility] [address] [address] Anion Gapon 03-02-2024 Anion gap [Moles/Vol] 9.0 mmol/L 8.0 - 16.0 meq/L [facility] Comment on above: ANION GAP = Sodium - (Chloride + CO2) Performed at [facility] [address] [place] [address] BASIC METABOL PANELon 2023 Calcium [Mass/Vol] 8.4 mg/dL Low 8.5-10.5 [facility] Comment on above: Performed By: #### C RP, WSR #### [facility] [address] [place] [address] Chloride [Moles/Vol] 100 mmol/L Normal 98-111 [facility] Comment on above: Performed By: #### C RP, WSR #### [facility] [address] [place] [address] CO2 [Moles/Vol] 29 mmol/L Normal 23-33 [facility] Comment on above: Performed By: #### C RP, WSR #### [facility] [address] [place] [address] Creatinine [Mass/Vol] 0.9 mg/dL Normal 0.4-1.2 [facility] Comment on above: Performed By: #### C RP, WSR #### [facility] [address] [place] [address] Glucose [Mass/Vol] 103 mg/dL Normal 70-108 [facility] Comment on above: Performed By: #### C RP, WSR #### [facility] [address] [place] [address] Potassium [Moles/Vol] 3.7 mmol/L Normal 3.5-5.2 [facility] Comment on above: Performed By: #### C RP, WSR #### [facility] [address] [place] [address] Sodium [Moles/Vol] 138 mmol/L Normal 135-145 [facility] Comment on above: Performed By: #### C RP, WSR #### [facility] [address] [place] [address] Urea nitrogen [Mass/Vol] 10 mg/dL Normal 7-22 [facility] Comment on above: Performed By: #### C RP, WSR #### [facility] [address] [place] [address] Basic metabolic 2000 panelon 03-02-2024 Calcium [Mass/Vol] 8.4 mg/dL Low 8.5 - 10. 5 mg/dL [facility] Comment on above: Performed at [facility] [place] [address] [place] [address] Chloride [Moles/Vol] 100 mmol/L 98 - 111 meq/L [facility] CO2 [Moles/Vol] 29 mmol/L 23 - 33 meq/L [facility] Creatinine [Mass/Vol] 0.9 mg/dL 0.4 - 1.2 mg/dL [facility] Glucose [Mass/Vol] 103 mg/dL 70 - 108 mg/dL [facility] Interpretation and review of laboratory results Abnormal [facility] Potassium [Moles/Vol] 3.7 mmol/L 3.5 - 5.2 meq/L [facility] Sodium [Moles/Vol] 138 mmol/L 135 - 145 meq/L [facility] Urea nitrogen [Mass/Vol] 10 mg/dL 7 - 22 mg/dL [facility] CBC WITH DIFFERENTIALon 11-0 ATYPICAL LYMPH OCC. Normal [facility] Comment on above: Performed By: #### Irene ANDRES, SCAN1 #### [place] [address] PLATELET ESTIMATE SL DECREASED Normal Adequate [facility] Comment on above: Performed By: #### Irene ANDRES, SCAN1 #### [place] [address] SMUDGE CELLS Present Normal Absent [facility] Comment on above: Performed By: #### Irene ANDRES, SCAN1 #### [facility] [address] [place] [address] ABS BASOPHILS 0.0 thou/mm3 Normal 0.0-0.1 [facility] Comment on above: Performed By: #### Irene ANDRES, SCAN1 #### [address] [address] ABS EOSINOPHILS 0.0 thou/mm3 Normal 0.0-0.4 [facility] Comment on above: Performed By: #### Irene ANDRES, SCAN1 #### [facility] [address] [place] [address] ABS IMMATURE GRANS (IG) 0.08 thou/mm3 High 0.00-0.07 [facility] Comment on above: Performed By: #### Irene ANDRES, SCAN1 #### [facility] [address] [place] [address] ABS LYMPHOCYTES 0.7 thou/mm3 Low 1.0-4.8 [facility] Comment on above: Performed By: #### C DMITRY, SCAN1 #### [facility] [address] [place] [address] ABS MONOCYTES 0.1 thou/mm3 Low 0.4-1.3 [facility] Comment on above: Performed By: #### Irene ANDRES, SCAN1 #### [facility] [address] [place] [address] ABS NEUTROPHILS 0.9 thou/mm3 Low 1.8-7.7 [facility] Comment on above: Performed By: #### C DMITRY, SCAN1 #### [facility] [address] [place] [address] Basophils/100 WBC (Bld) 0.5 % Normal [facility] Comment on above: Performed By: #### C DMITRY, SCAN1 #### [facility] [address] [place] [address] Eosinophils/100 WBC (Bld) 2.6 % Normal [facility] Comment on above: Performed By: #### Irene ANDRES, SCAN1 #### [facility] [address] [place] [address] Erythrocyte distribution width (RBC) [Ratio] 12.1 % Normal 11.5-14.5 [facility] Comment on above: Performed By: #### Irene ANDRES, SCAN1 #### [facility] [address] [place] [address] Hematocrit (Bld) [Volume fraction] 33.8 % Low 42.0-52.0 [facility] Comment on above: Performed By: #### Irene ANDRES, SCAN1 #### [facility] [address] [place] [address] Hemoglobin (Bld) [Mass/Vol] 11.6 g/dL Low 14.0-18.0 [facility] Comment on above: Performed By: #### C DMITRY, SCAN1 #### [facility] [address] [place] [address] IMMATURE GRANS (IG) 4.2 % Normal [facility] Comment on above: Performed By: #### Irene ANDRES, SCAN1 #### [facility] [address] [address] Lymphocytes/100 WBC (Bld) 37.0 % Normal [facility] Comment on above: Performed By: #### Irene ANDRES, SCAN1 #### [address] [address] MCH (RBC) [Entitic mass] 30.9 pg Normal 26.0-33.0 [facility] Comment on above: Performed By: #### Irene ANDRES, SCAN1 #### [address] [address] MCHC (RBC) [Mass/Vol] 34.3 g/dL Normal 32.2-35.5 [facility] Comment on above: Performed By: #### Irene ANDRES, SCAN1 #### [address] [address] MCV (RBC) [Entitic vol] 90.1 fL Normal 80.0-94.0 [facility] Comment on above: Performed By: #### Irene ANDRES, SCAN1 #### [address] [address] Monocytes/100 WBC (Bld) 7.8 % Normal [facility] Comment on above: Performed By: #### Irene ANDRES, SCAN1 #### [address] [address] Neutrophils/100 WBC (Bld) 47.9 % Normal [facility] Comment on above: Performed By: #### Irene ANDRES, SCAN1 #### [address] [address] NRBC 0 /100 wbc Normal [facility] Comment on above: Performed By: #### Irene ANDRES, SCAN1 #### [address] [address] PLATELET 100 thou/mm3 Low 130-400 [facility] Comment on above: Performed By: #### Irene ANDRES, SCAN1 #### [facility] [address] [place] [address] Platelet mean volume (Bld) [Entitic vol] 11.4 fL Normal 9.4-12.4 [facility] Comment on above: Performed By: #### C DMITRY, SCAN1 #### [facility] [address] [place] [address] RBC 3.75 mill/mm3 Low 4.70-6.10 [facility] Comment on above: Performed By: #### C DMITRY, SCAN1 #### [facility] [address] [place] [address] RDW-SD 40.8 fL Normal 35.0-45.0 [facility] Comment on above: Performed By: #### C DMITRY, SCAN1 #### [facility] [address] [place] [address] WBC 1.9 thou/mm3 Low 4.8-10.8 [facility] Comment on above: Performed By: #### C DMITRY, SCAN1 #### [facility] [address] [place] [address] CBC with Auto Differentialon 03-02-2024 Basophils (Bld) [#/Vol] 0.0 10*3/uL [facility] Basophils/100 WBC (Bld) 0.5 % [facility] Eosinophils Absolute 0.0 [facility] Eosinophils/100 WBC (Bld) 2.6 % [facility] Erythrocyte distribution width (RBC) [Entitic vol] 40.8 fL 35.0 - 45.0 fL [facility] Erythrocyte distribution width (RBC) [Ratio] 12.1 % 11.5 - 14.5 % [facility] Hematocrit (Bld) [Volume fraction] 33.8 % Low 42.0 - 52.0 % [facility] Hemoglobin (Bld) [Mass/Vol] 11.6 g/dL Low [facility] Immature granulocytes (Bld) [#/Vol] 0.08 10*3/uL High [facility] Immature granulocytes/100 WBC (Bld) 4.2 % [facility] Interpretation and review of laboratory results Abnormal [facility] Lymphocytes Absolute 0.7 Low [facility] Lymphocytes/100 WBC (Bld) 37.0 % [facility] MCH (RBC) [Entitic mass] 30.9 pg 26.0 - 33.0 pg [facility] MCHC (RBC) [Mass/Vol] 34.3 g/dL [facility] MCV (RBC) [Entitic vol] 90.1 fL 80.0 - 94.0 fL [facility] Monocytes Absolute 0.1 Low [facility] Monocytes/100 WBC (Bld) 7.8 % [facility] Neutrophils Absolute 0.9 Low [facility] Neutrophils/100 WBC (Bld) 47.9 % [facility] Nucleated RBC/100 WBC (Bld) [Ratio] 0 % /100 wbc [facility] Platelet mean volume (Bld) [Entitic vol] 11.4 fL 9.4 - 12.4 fL [facility] Platelets (Bld) [#/Vol] 100 10*3/uL Low [facility] Platelets LM Ql (Bld) SL DECREASED Adequate [facility] RBC (Bld) [#/Vol] 3.75 10*6/uL Low [facility] Smudge cells LM Ql (Bld) Present Absent [facility] Comment on above: Performed at [facility] [address] [place] [address] Variant lymphocytes LM Ql (Bld) OCC. % [facility] WBC (Bld) [#/Vol] 1.9 10*3/uL Low [facility] EKG [employer] FRANCES VARNER VIRUS ANTIBODIE Son 03-02-2024 FRANCES VARNER VIRUS ANTIBODIES SEE BELOW Normal [facility] Comment on above: Result Comment: EBV Ab to Viral Capsid Ag IgG 320.0 H 0.0-21.9 U/mL INTERPRETIVE INFORMATION: Frances-Varner Virus Ab to Viral Capsid Ag, IgG 17.9 U/mL or less.......Not Detected 18.0-21.9 U/mL..........Indeterminate - Repeat testing in 10-14 days may be helpful. 22.0 U/mL or greater....Detected EBV Ab to Viral Capsid Ag IgM <10.0 0.0-43.9 U/mL INTERPRETIVE INFORMATION: Frances-Varner Virus Ab to Viral Capsid Ag, IgM 35.9 U/mL or less.......Not Detected 36.0-43.9 U/mL..........Indeterminate - Repeat testing in 10-14 days may be helpful. 44.0 U/mL or greater....Detected EBV Ab to Nuclear Ag IgG 29.3 H 0.0-21.9 U/mL INTERPRETIVE INFORMATION: Frances-Varner Virus Ab to Nuclear Ag, IgG 17.9 U/mL or less.......Not Detected 18.0-21.9 U/mL..........Indeterminate - Repeat testing in 10-14 days may be helpful. 22.0 U/mL or greater....Detected EBV Ab to Early (D) Ag IgG <5.0 0.0-10.9 U/mL INTERPRETIVE INFORMATION: Frances-Varner Virus Ab to Early D Ag (EA-D), IgG 8.9 U/mL or less........Not Detected 9.0-10.9 U/mL...........Indeterminate - Repeat testing in 10-14 days may be helpful. 11.0 U/mL or greater....Detected Performed By: [employer] [facility] [address] [place] [address] [employer]: Sunny Roman MD, PhD CLIA Number: [id number] Performed By: #### M MMP, CRBM2, LPBM2 #### [facility] [address] [facility] [address] Frances varner virus (EBV) ant ibody panel Ion 03-02-2024 FRANCES-VARNER VIRUS ANTIBODIES SEE BELOW [facility] Comment on above: EBV Ab to Viral Caps id Ag IgG 320.0 H 0.0-21.9 U/mL INTERPRETIVE INFORMATION: Frances-Varner Virus Ab to Viral Capsid Ag, IgG 17.9 U/mL or less.......Not Detected 18.0-21.9 U/mL..........Indeterminate - Repeat testing in 10-14 days may be helpful. 22.0 U/mL or greater....Detected EBV Ab to Viral Capsid Ag IgM <10.0 0.0-43.9 U/mL INTERPRETIVE INFORMATION: Frances-Varner Virus Ab to Viral Capsid Ag, IgM 35.9 U/mL or less.......Not Detected 36.0-43.9 U/mL..........Indeterminate - Repeat testing in 10-14 days may be helpful. 44.0 U/mL or greater....Detected EBV Ab to Nuclear Ag IgG 29.3 H 0.0-21.9 U/mL INTERPRETIVE INFORMATION: Frances-Varner Virus Ab to Nuclear Ag, IgG 17.9 U/mL or less.......Not Detected 18.0-21.9 U/mL..........Indeterminate - Repeat testing in 10-14 days may be helpful. 22.0 U/mL or greater....Detected EBV Ab to Early (D) Ag IgG <5.0 0.0-10.9 U/mL INTERPRETIVE INFORMATION: Frances-Varner Virus Ab to Early D Ag (EA-D), IgG 8.9 U/mL or less........Not Detected 9.0-10.9 U/mL...........Indeterminate - Repeat testing in 10-14 days may be helpful. 11.0 U/mL or greater....Detected Performed By: [employer] [address] [place] [address] [employer]: Sunny Roman MD, PhD CLIA Number: [id number] [facility] GFR, ESTIMATEDon 03-02-2024 GFR/1.73 sq M.predicted MDRD (S/P/Bld) [Vol rate/Area] mL/min/{1.73_m2} Normal >60 [facility] Comment on above: Pediatric calculator link https://www.kidney.org/professionals/kdoqi/gfr_calculatorped Effective Jan 31, 2022 These results are not intended for use in patients <18 years of age. eGFR results are calculated without a race factor using the 2020 CKD-EPI equation. Careful clinical correlation is recommended, particularly when comparing to results calculated using previous equations. The CKD-EPI equation is less accurate in patients with extremes of muscle mass, extra-renal metabolism of creatinine, excessive creatine ingestion, or following therapy that affects renal tubular secretion[place] [address] Result Comment: Danyel atric calculator link https://www.kidney.org/professionals/kdoqi/gfr_calculatorped Effective Jan 31, 2022 These results are not intended for use in patients <18 years of age. eGFR results are calculated without a race factor using the 2020 CKD-EPI equation. Careful clinical correlation is recommended, particularly when comparing to results calculated using previous equations. The CKD-EPI equation is less accurate in patients with extremes of muscle mass, extra-renal metabolism of creatinine, excessive creatine ingestion, or following therapy that affects renal tubular secretion. Performed By: #### C RP, WSR #### [place] [address] No Panel Informationon 03-02 [facility] [employer] SCAN OF BLOOD SMEARon 2023 SCAN OF BLOOD SMEAR see below Normal [facility] Comment on above: Criteria Exceeded; S can of Differential Slide Performed [place] [address] Result Comment: Nichole larkin Exceeded; Scan of Differential Slide Performed Performed By: #### C BCWD, SCAN1 #### [place] [address] BLOOD SMEAR REVIEWon 024 PATHOLOGIST REVIEWED Estefani FUNES Normal [facility] Comment on above: Result Comment: Panc ytopenia with normocytic anemia. No circulating blasts. No platelet clumps. Clinical correlation is recommended. Performed By: #### M MMP, CRBM2, LPBM2 #### [facility] [address] [place] [address] SMEAR REVIEWED BY PATHOLOGIST see below Normal [facility] Comment on above: Result Comment: See Below Performed By: #### M MMP, CRBM2, LPBM2 #### [facility] [address] [facility] [address] CBC WITH DIFFERENTIALon PATHOLOGIST REVIEWED PCF Normal [facility] Comment on above: Performed By: #### C VFLU #### [place] [address] ATYPICAL LYMPH OCC. Normal [facility] Comment on above: Performed By: #### C VFLU #### [facility] [address] [place] [address] ABS BASOPHILS 0.0 thou/mm3 Normal 0.0-0.1 [facility] Comment on above: Performed By: #### C VFLU #### [facility] [address] [place] [address] ABS EOSINOPHILS 0.0 thou/mm3 Normal 0.0-0.4 [facility] Comment on above: Performed By: #### C VFLU #### [address] [place] [address] ABS IMMATURE GRANS (IG) 0.09 thou/mm3 High 0.00-0.07 [facility] Comment on above: Performed By: #### C VFLU #### [address] [place] [address] ABS LYMPHOCYTES 0.5 thou/mm3 Low 1.0-4.8 [facility] Comment on above: Performed By: #### C VFLU #### [address] [place] [address] ABS MONOCYTES 0.1 thou/mm3 Low 0.4-1.3 [facility] Comment on above: Performed By: #### C VFLU #### [facility] [address] [place] [address], [place] [address] ABS NEUTROPHILS 1.1 thou/mm3 Low 1.8-7.7 [facility] Comment on above: Performed By: #### C VFLU #### [facility] [address] [place] [address], [place] [address] Basophils/100 WBC (Bld) 1.1 % Normal [facility] Comment on above: Performed By: #### C VFLU #### [facility] [address] [place] [address], [place] [address] Eosinophils/100 WBC (Bld) 1.7 % Normal [facility] Comment on above: Performed By: #### C VFLU #### [address] [place] [address] Erythrocyte distribution width (RBC) [Ratio] 12.3 % Normal 11.5-14.5 [facility] Comment on above: Performed By: #### C VFLU #### [facility] [address] [place] [address] Hematocrit (Bld) [Volume fraction] 38.2 % Low 42.0-52.0 [facility] Comment on above: Performed By: #### C VFLU #### [facility] [address] [place] [address] Hemoglobin (Bld) [Mass/Vol] 12.9 g/dL Low 14.0-18.0 [facility] Comment on above: Performed By: #### C VFLU #### [address] [address] IMMATURE GRANS (IG) 5.0 % Normal [facility] Comment on above: Performed By: #### C VFLU #### [address] [address] Lymphocytes/100 WBC (Bld) 26.3 % Normal [facility] Comment on above: Performed By: #### C VFLU #### [address] [address] MCH (RBC) [Entitic mass] 30.2 pg Normal 26.0-33.0 [facility] Comment on above: Performed By: #### C VFLU #### [address] [address] MCHC (RBC) [Mass/Vol] 33.8 g/dL Normal 32.2-35.5 [facility] Comment on above: Performed By: #### C VFLU #### [address] [address] MCV (RBC) [Entitic vol] 89.5 fL Normal 80.0-94.0 [facility] Comment on above: Performed By: #### C VFLU #### [address] [address] Monocytes/100 WBC (Bld) 5.6 % Normal [facility] Comment on above: Performed By: #### C VFLU #### [address] [address] Neutrophils/100 WBC (Bld) 60.3 % Normal [facility] Comment on above: Performed By: #### C VFLU #### [address] [address] NRBC 0 /100 wbc Normal [facility] Comment on above: Performed By: #### C VFLU #### [address] [address] PLATELET 86 thou/mm3 Low 130-400 [facility] Comment on above: Performed By: #### C VFLU #### [address] [address] Platelet mean volume (Bld) [Entitic vol] 11.2 fL Normal 9.4-12.4 [facility] Comment on above: Performed By: #### C VFLU #### [address] [address] RBC 4.27 mill/mm3 Low 4.70-6.10 [facility] Comment on above: Performed By: #### C VFLU #### [address] [address] RDW-SD 40.0 fL Normal 35.0-45.0 [facility] Comment on above: Performed By: #### C VFLU #### [address] [address] WBC 1.8 thou/mm3 Low 4.8-10.8 [facility] Comment on above: Performed By: #### C VFLU #### [address] [address] CBC with Auto Differentialon 03-01-2024 Basophils (Bld) [#/Vol] 0.0 10*3/uL [facility] Basophils/100 WBC (Bld) 1.1 % [facility] Eosinophils Absolute 0.0 [facility] Eosinophils/100 WBC (Bld) 1.7 % [facility] Erythrocyte distribution width (RBC) [Entitic vol] 40.0 fL 35.0 - 45.0 fL [facility] Erythrocyte distribution width (RBC) [Ratio] 12.3 % 11.5 - 14.5 % [facility] Hematocrit (Bld) [Volume fraction] 38.2 % Low 42.0 - 52.0 % [facility] Hemoglobin (Bld) [Mass/Vol] 12.9 g/dL Low [facility] Immature granulocytes (Bld) [#/Vol] 0.09 10*3/uL High [facility] Immature granulocytes/100 WBC (Bld) 5.0 % [facility] Interpretation and review of laboratory results Abnormal [facility] Lymphocytes Absolute 0.5 Low [facility] Lymphocytes/100 WBC (Bld) 26.3 % [facility] MCH (RBC) [Entitic mass] 30.2 pg 26.0 - 33.0 pg [facility] MCHC (RBC) [Mass/Vol] 33.8 g/dL [facility] MCV (RBC) [Entitic vol] 89.5 fL 80.0 - 94.0 fL [facility] Monocytes Absolute 0.1 Low [facility] Monocytes/100 WBC (Bld) 5.6 % [facility] Neutrophils Absolute 1.1 Low [facility] Neutrophils/100 WBC (Bld) 60.3 % [facility] Nucleated RBC/100 WBC (Bld) [Ratio] 0 % /100 wbc [facility] Comment on above: Performed at [facility] [address] [place] [address] Pathologist Review PCF [facility] Platelet mean volume (Bld) [Entitic vol] 11.2 fL 9.4 - 12.4 fL [facility] Platelets (Bld) [#/Vol] 86 10*3/uL Low [facility] RBC (Bld) [#/Vol] 4.27 10*6/uL Low [facility] Variant lymphocytes LM Ql (Bld) OCC. % [facility] WBC (Bld) [#/Vol] 1.8 10*3/uL Low [facility] CT BIOPSY BONE MARROWon 11-[address]-GUIDED BONE MARROW BIOPSY: CLINICAL INFORMATION: 33-year-old male with pancytopenia PERFORMED BY: Dr. Kostas Mendoza M.D. BIOPSY SITE: Right posterior iliac spine APPROACH: Posterior NEEDLE: 8 -gauge Jamshidi needle. SPECIMENS OBTAINED:. 1 8 -gauge core specimens., 10 mL blood aspiration specimen. SEDATION: Versed 2 mg; fentanyl 100 mcg, IV; the patient was sedated during this procedure, and monitored with EKG and pulse ox monitoring devices by a registered nurse. [id number] time with patient 10 minutes. PROCEDURE: Signed informed consent was obtained prior to performing this procedure. The patient was placed on the CT scanner and sedated, as indicated above. The skin was marked, prepped, and draped in a sterile fashion. Following local anesthesia and utilizing aseptic technique, the needle as indicated above was inserted into the region of interest as listed above .. Appropriate position was documented with CT images. Aspiration and core Biopsy specimens were then obtained utilizing coaxial technique and handed to the school laboratory technician for processing and evaluation. Post procedure CT images revealed no significant post biopsy hemorrhage... At the end of the procedure, hemostasis was obtained with manual pressure The patient tolerated the procedure well. ALL CT SCANS AT THIS FACILITY use dose modulation, iterative reconstruction, and/or weight-based dosing when appropriate to reduce radiation dose to as low as reasonably achievable. IMPRESSION: Status post successful CT guided bone marrow biopsy. This report has been created using voice recognition software. It may contain minor errors which are inherent in voice recognition technology. Electronically signed by Dr Kostas Mendoza Interpreted by: Kostas Mendoza MD Signed by: Kostas Mendoza MD 03/01/24 Final result Normal [facility] CT Guidance for biopsy of Cosmo ne marrowon 03-01-2024 Status post successf ul CT guided bone marrow biopsy. This report has been created using voice recognition software. It may contain minor errors which are inherent in voice recognition technology. Electronically signed by Dr Kostas Mendoza [facility] CT-GUIDED BONE MARRO W BIOPSY: CLINICAL INFORMATION: 33-year-old male with pancytopenia PERFORMED BY: Dr. Kostas Mendoza M.D. BIOPSY SITE: Right posterior iliac spine APPROACH: Posterior NEEDLE: 8 -gauge Jamshidi needle. SPECIMENS OBTAINED:. 1 8 -gauge core specimens., 10 mL blood aspiration specimen. SEDATION: Versed 2 mg; fentanyl 100 mcg, IV; the patient was sedated during this procedure, and monitored with EKG and pulse ox monitoring devices by a registered nurse. [id number] time with patient 10 minutes. PROCEDURE: Signed informed consent was obtained prior to performing this procedure. The patient was placed on the CT scanner and sedated, as indicated above. The skin was marked, prepped, and draped in a sterile fashion. Following local anesthesia and utilizing aseptic technique, the needle as indicated above was inserted into the region of interest as listed above .. Appropriate position was documented with CT images. Aspiration and core Biopsy specimens were then obtained utilizing coaxial technique and handed to the school laboratory technician for processing and evaluation. Post procedure CT images revealed no significant post biopsy hemorrhage... At the end of the procedure, hemostasis was obtained with manual pressure The patient tolerated the procedure well. ALL CT SCANS AT THIS FACILITY use dose modulation, iterative reconstruction, and/or weight-based dosing when appropriate to reduce radiation dose to as low as reasonably achievable. [facility] Kostas Morelos MD - 03/01/2024 CT-GUIDED BONE MARROW BIOPSY: CLINICAL INFORMATION: 33-year-old male with pancytopenia PERFORMED BY: Dr. Kostas Mendoza M.D. BIOPSY SITE: Right posterior iliac spine APPROACH: Posterior NEEDLE: 8 -gauge Jamshidi needle. SPECIMENS OBTAINED:. 1 8 -gauge core specimens., 10 mL blood aspiration specimen. SEDATION: Versed 2 mg; fentanyl 100 mcg, IV; the patient was sedated during this procedure, and monitored with EKG and pulse ox monitoring devices by a registered nurse. [id number]-kw-[id number] time with patient 10 minutes. PROCEDURE: Signed informed consent was obtained prior to performing this procedure. The patient was placed on the CT scanner and sedated, as indicated above. The skin was marked, prepped, and draped in a sterile fashion. Following local anesthesia and utilizing aseptic technique, the needle as indicated above was inserted into the region of interest as listed above .. Appropriate position was documented with CT images. Aspiration and core Biopsy specimens were then obtained utilizing coaxial technique and handed to the school laboratory technician for processing and evaluation. Post procedure CT images revealed no significant post biopsy hemorrhage... At the end of the procedure, hemostasis was obtained with manual pressure The patient tolerated the procedure well. ALL CT SCANS AT THIS FACILITY use dose modulation, iterative reconstruction, and/or weight-based dosing when appropriate to reduce radiation dose to as low as reasonably achievable. IMPRESSION: Status post successful CT guided bone marrow biopsy. This report has been created using voice recognition software. It may contain minor errors which are inherent in voice recognition technology. Electronically signed by Dr Kostas Mendoza [facility] [employer] Radiology Study observation (narrative) [employer] CT Guidance for biopsy of Cosmo ne marrowOrdered By: Kostas Mendoza on 03-01-2024 [employer] Phone: EKG 12 LeadOrdered By: Julito Morris on 03-01-2024 Atrial Rate 87 BPM [employer] Phone: P [place] 73 degrees [employer] Phone: P-R Interval 140 ms [employer] Phone: Q-T Interval 378 ms [employer] Phone: QRS Duration 104 ms [employer] Phone: QTc Calculation (Bazett) 454 ms [employer] Phone: R [place] 72 degrees [employer] Phone: T [place] 42 degrees [employer] Phone: Ventricular Rate 87 BPM [email or web address] Phone: [employer] Phone: EKG 12 Leadon 03-01-2024 Normal sinus rhythm Nonspecific T wave abnormality Abnormal ECG When compared with ECG of 28-FEB-2024 20:02, No significant change was found Confirmed by NAYELI MORRIS ([id number]) on 03/01/2024 1:00:05 PM [facility] MUSE Nayeli Morris MD - 03/01/2024 Normal sinus rhythm Nonspecific T wave abnormality Abnormal ECG When compared with ECG of 28-FEB-2024 20:02, No significant change was found Confirmed by NAYELI MORRIS ([id number]) on 03/01/2024 1:00:05 PM [facility] EKG Rhythm Stripon 4 75 PACEART [facility] 81 PACEART [facility] hr 86 PACEART [facility] No Panel Informationon 03-01 [facility] Path Review, Smearon 024 REVIEWED BY Estefani FUNES [facility] Comment on above: Pancytopenia with no rmocytic anemia. No circulating blasts. No platelet clumps. Clinical correlation is recommended[place] [address] Smear Review see below [facility] Comment on above: See Below SCAN OF BLOOD SMEARon 2023 SCAN OF BLOOD SMEAR see below Normal [facility] Comment on above: Criteria Exceeded; S can of Differential Slide Performed Performed at [facility] [place] [address] Result Comment: Crit eria Exceeded; Scan of Differential Slide Performed Performed By: #### C VFLU #### [place] [address] SURGICALon 03-01-2024 SURG[facility] JAYME Reji ETHAN [id number] Assoc. Page [address] of [address] [place] [address] PROC: 03/01/2024 [facility] RECV: 03/01/[facility]: 03/04/2024 [place] [address] LOC: 4A ACCT: [id number] SEX: M : 1990 AGE: 33 Y PATHOLOGY REPORT ATTN: RUTH WYMAN REQ: JENNY ALVAREZ Copies To: KOSTAS MENDOZA; RUTH WYMAN Clinical Information: PANCYTOPENIA FINAL DIAGNOSIS: Bone marrow, aspirate, clot and core biopsy: CBC-pancytopenia with neutropenia. Normocellular marrow with trilineage hematopoiesis and nonnecrotizing granulomatous inflammation. See microscopic. Iron stain-decreased iron stores. Flow cytometry-no abnormal immunophenotype. Cytogenetics- pending. Myeloid mutation panel by NGS-pending. Specimen: A) BONE MARROW ASPIRATE B) BONE MARROW BIOPSY Gross Examination: A - The specimen container is labeled Ethan Donald, bone marrow clot. The specimen is received in formalin and consists of an aggregate of red blood clot measuring 2.8 x 2.0 x 0.7 cm in aggregate. Igniter Capper blood clot is submitted in one cassette labeled A1. B - The specimen container is labeled Ethan Donald, bone marrow core. The specimen is received in formalin and consists of a core of red trabeculated bone measuring 0.3 cm in diameter and 1.1 cm in length. The specimen is entirely submitted in one cassette labeled B1. BAS:moa Microscopic Examination: CBC demonstrates 1.8 white count, 12.9 and 38.2 hemoglobin hematocrit and 86,000 platelets. MCV 89.5 MCH 30.2, MCHC 33.8. Absolute differential = 1.1 neutrophils 0.5 lymphocytes and 0.1 monocytes. A review of the peripheral blood smear confirms CBC parameters. Red cells are normocytic normochromic. Circulating leukocytes are without dyspoiesis. A few rare reactive lymphocytes and rare giant platelets are seen. No platelet clumping is identified. No blasts are present. The marrow aspirate demonstrates full active trilineage hematopoiesis.300 cell count differential demonstrates 2% blasts 5% promyelocytes 14% myelocytes 10% metamyelocytes 23% bands and 10% segmented neutrophils, 5% lymphocytes 1 % monocytes, 30% nucleated red blood cell precursors. Iron stain demonstrates only minimal storage iron. The control is adequate. There is no dyspoiesis. Megakaryocytes appear normal and morphology and number. The core biopsy and clot preparation are similar. The clot demonstrates abundant cellular spicules with an overall cellularity of 60%. There is full active trilineage hematopoiesis and a few scattered small noncaseating loosely formed granulomas, some of which appears centered around adipocytes. Multinucleated giant cells are not appreciated. Megakaryocytes appear normal in number morphology. Bony trabeculae are unremarkable. Flow cytometry is negative for an abnormal immunophenotype. GMS (fungus) and AFB (acid-fast organisms) stains are negative for organisms. The controls are adequate. The underlying etiology of these loose granulomas throughout the marrow require clinical correlation. Infectious etiology, given the negative fungal and acid-fast organisms stains is not favored. Differential diagnoses of marrow granulomas require clinical correlation. Drug effect, autoimmune disease, hematological disorders, infection and sarcoid are included in the differential. I do not appreciate any hematopoietic malignancy and there is no evidence of fungal or acid-fast organisms. These granulomas are very loosely formed and not typical of that seen with sarcoid however sarcoid remains a diagnosis of exclusion. Please correlate with drug effect and autoimmune entities. Myeloid mutation panel by NGS and cytogenetics are currently pending. Please see separate reference reports. [id number] x 2 LIZY BRISCOE M.D., F.C.A.P. [facility]/ [facility] Printed on: 03/04/[address] [place] [id number] Original print date: 03/04/2024 Normal [facility] Scan of Blood Smearon 2023 [facility] ANION GAPon 02-29-2024 Anion gap [Moles/Vol] 13.0 mmol/L Normal 8.0-16.0 [facility] Comment on above: Result Comment: ANIO N GAP = Sodium -(Chloride + CO2) Performed By: #### C VFLU #### [address] [address] Anion Gapon 02-29-2024 Anion gap [Moles/Vol] 13.0 mmol/L 8.0 - 16.0 meq/L [facility] Comment on above: ANION GAP = Sodium - (Chloride + CO2) Performed at [facility] [address] [place] [address] BASIC METABOL PANELon 2023 Calcium [Mass/Vol] 8.3 mg/dL Low 8.5-10.5 [facility] Comment on above: Performed By: #### C VFLU #### [facility] [address] [place] [address] Chloride [Moles/Vol] 102 mmol/L Normal 98-111 [facility] Comment on above: Performed By: #### C VFLU #### [facility] [address] [place] [address] CO2 [Moles/Vol] 24 mmol/L Normal 23-33 [facility] Comment on above: Performed By: #### C VFLU #### [facility] [employer] [facility] [address] [place] [address] Creatinine [Mass/Vol] 1.1 mg/dL Normal 0.4-1.2 [facility] Comment on above: Performed By: #### C VFLU #### [facility] [employer] [facility] [address] [place] [address] Glucose [Mass/Vol] 96 mg/dL Normal 70-108 [facility] Comment on above: Performed By: #### C VFLU #### [facility] [address] [place] [address] Potassium [Moles/Vol] 3.7 mmol/L Normal 3.5-5.2 [facility] Comment on above: Performed By: #### C VFLU #### [address] [address] Sodium [Moles/Vol] 139 mmol/L Normal 135-145 [facility] Comment on above: Performed By: #### C VFLU #### [facility] [employer] [facility] [address] [place] [address] Urea nitrogen [Mass/Vol] 13 mg/dL Normal 7-22 [facility] Comment on above: Performed By: #### C VFLU #### [facility] [employer] [address] [address] Basic metabolic 2000 panelon 02-29-2024 Calcium [Mass/Vol] 8.3 mg/dL Low 8.5 - 10. 5 mg/dL [facility] Comment on above: Performed at [facility] [place] [address] [place] [address] Chloride [Moles/Vol] 102 mmol/L 98 - 111 meq/L [facility] CO2 [Moles/Vol] 24 mmol/L 23 - 33 meq/L [facility] Creatinine [Mass/Vol] 1.1 mg/dL 0.4 - 1.2 mg/dL [facility] Glucose [Mass/Vol] 96 mg/dL 70 - 108 mg/dL [facility] Interpretation and review of laboratory results Abnormal [facility] Potassium [Moles/Vol] 3.7 mmol/L 3.5 - 5.2 meq/L [facility] Sodium [Moles/Vol] 139 mmol/L 135 - 145 meq/L [facility] Urea nitrogen [Mass/Vol] 13 mg/dL 7 - 22 mg/dL [facility] C-REACTIVE PROTEINon 024 C-REACTIVE PROTEIN 4.49 mg/dl High 0.00-1.00 [facility] Comment on above: Performed By: #### C RP, WSR #### [facility] [place] [place] [address] C-Reactive Proteinon 024 CRP [Mass/Vol] 4.49 mg/dl High 0.00 - 1.00 mg/dl [facility] Comment on above: Performed at [facility] [address] [place] [address] CALCIUM (IONIZED) * WBon CALCIUM (IONIZED) * WB 1.11 mmol/L Low 1.12-1.32 [facility] Comment on above: Performed By: #### C VFLU #### [facility] [place] [place] [address] CBC WITH DIFFERENTIALon 01-31 PLATELET ESTIMATE DECREASED Normal Adequate [facility] Comment on above: Performed By: #### C VFLU #### [place] [address] SMUDGE CELLS Present Normal Absent [facility] Comment on above: Performed By: #### C VFLU #### [facility] [employer] [address] [address] ABS BASOPHILS 0.0 thou/mm3 Normal 0.0-0.1 [facility] Comment on above: Performed By: #### C VFLU #### [facility] [employer] [facility] [address] [place] [address] ABS EOSINOPHILS 0.0 thou/mm3 Normal 0.0-0.4 [facility] Comment on above: Performed By: #### C VFLU #### [address] [address] ABS IMMATURE GRANS (IG) 0.05 thou/mm3 Normal 0.00-0.07 [facility] Comment on above: Performed By: #### C VFLU #### [facility] [address] [place] [address] ABS LYMPHOCYTES 0.4 thou/mm3 Low 1.0-4.8 [facility] Comment on above: Performed By: #### C VFLU #### [facility] [address] [place] [address] ABS MONOCYTES 0.1 thou/mm3 Low 0.4-1.3 [facility] Comment on above: Performed By: #### C VFLU #### [facility] [address] [place] [address] ABS NEUTROPHILS 0.9 thou/mm3 Low 1.8-7.7 [facility] Comment on above: Performed By: #### C VFLU #### [address] [address] Basophils/100 WBC (Bld) 1.4 % Normal [facility] Comment on above: Performed By: #### C VFLU #### [address] [address] Eosinophils/100 WBC (Bld) 0.7 % Normal [facility] Comment on above: Performed By: #### C VFLU #### [address] [address] Erythrocyte distribution width (RBC) [Ratio] 12.0 % Normal 11.5-14.5 [facility] Comment on above: Performed By: #### C VFLU #### [address] [address] Hematocrit (Bld) [Volume fraction] 36.0 % Low 42.0-52.0 [facility] Comment on above: Performed By: #### C VFLU #### [address] [address] Hemoglobin (Bld) [Mass/Vol] 12.2 g/dL Low 14.0-18.0 [facility] Comment on above: Performed By: #### C VFLU #### [address] [address] IMMATURE GRANS (IG) 3.4 % Normal [facility] Comment on above: Performed By: #### C VFLU #### [address] [address] Lymphocytes/100 WBC (Bld) 25.0 % Normal [facility] Comment on above: Performed By: #### C VFLU #### [address] [address] MCH (RBC) [Entitic mass] 30.7 pg Normal 26.0-33.0 [facility] Comment on above: Performed By: #### C VFLU #### [address] [address] MCHC (RBC) [Mass/Vol] 33.9 g/dL Normal 32.2-35.5 [facility] Comment on above: Performed By: #### C VFLU #### [address] [address] MCV (RBC) [Entitic vol] 90.5 fL Normal 80.0-94.0 [facility] Comment on above: Performed By: #### C VFLU #### [address] [address] Monocytes/100 WBC (Bld) 7.4 % Normal [facility] Comment on above: Performed By: #### C VFLU #### [address] [address] Neutrophils/100 WBC (Bld) 62.1 % Normal [facility] Comment on above: Performed By: #### C VFLU #### [address] [address] NRBC 0 /100 wbc Normal [facility] Comment on above: Performed By: #### C VFLU #### [address] [address] PLATELET 89 thou/mm3 Low 130-400 [facility] Comment on above: Performed By: #### C VFLU #### [address] [address] Platelet mean volume (Bld) [Entitic vol] 10.7 fL Normal 9.4-12.4 [facility] Comment on above: Performed By: #### C VFLU #### [facility] [address] [place] [address] RBC 3.98 mill/mm3 Low 4.70-6.10 [facility] Comment on above: Performed By: #### C VFLU #### [facility] [address] [place] [address] RDW-SD 40.1 fL Normal 35.0-45.0 [facility] Comment on above: Performed By: #### C VFLU #### [facility] [address] [place] [address] WBC 1.5 thou/mm3 Low 4.8-10.8 [facility] Comment on above: Performed By: #### C VFLU #### [facility] [address] [place] [address] CBC with Auto Differentialon 02-29-2024 Basophils (Bld) [#/Vol] 0.0 10*3/uL [facility] Basophils/100 WBC (Bld) 1.4 % [facility] Eosinophils Absolute 0.0 [facility] Eosinophils/100 WBC (Bld) 0.7 % [facility] Erythrocyte distribution width (RBC) [Entitic vol] 40.1 fL 35.0 - 45.0 fL [facility] Erythrocyte distribution width (RBC) [Ratio] 12.0 % 11.5 - 14.5 % [facility] Hematocrit (Bld) [Volume fraction] 36.0 % Low 42.0 - 52.0 % [facility] Hemoglobin (Bld) [Mass/Vol] 12.2 g/dL Low [facility] Immature granulocytes (Bld) [#/Vol] 0.05 10*3/uL [facility] Immature granulocytes/100 WBC (Bld) 3.4 % [facility] Interpretation and review of laboratory results Abnormal [facility] Lymphocytes Absolute 0.4 Low [facility] Lymphocytes/100 WBC (Bld) 25.0 % [facility] MCH (RBC) [Entitic mass] 30.7 pg 26.0 - 33.0 pg [facility] MCHC (RBC) [Mass/Vol] 33.9 g/dL [facility] MCV (RBC) [Entitic vol] 90.5 fL 80.0 - 94.0 fL [facility] Monocytes Absolute 0.1 Low [facility] Monocytes/100 WBC (Bld) 7.4 % [facility] Neutrophils Absolute 0.9 Low [facility] Neutrophils/100 WBC (Bld) 62.1 % [facility] Nucleated RBC/100 WBC (Bld) [Ratio] 0 % /100 wbc [facility] Platelet mean volume (Bld) [Entitic vol] 10.7 fL 9.4 - 12.4 fL [facility] Platelets (Bld) [#/Vol] 89 10*3/uL Low [facility] Platelets LM Ql (Bld) DECREASED Adequate [facility] RBC (Bld) [#/Vol] 3.98 10*6/uL Low [facility] Smudge cells LM Ql (Bld) Present Absent [facility] Comment on above: Performed at [facility] [address] [place] [address] WBC (Bld) [#/Vol] 1.5 10*3/uL Low [facility] CRP [Mass/Vol]on 02-29-2024 Interpretation and review of laboratory results Abnormal [facility] Calcium, Ionizedon Calcium.ionized ISE (Bld) [Moles/Vol] 1.11 mmol/L Low 1.12 - 1.32 mmol/L [facility] Comment on above: Performed at [facility] [address] [place] [address] EKG 12-LEADon 02-29-2024 EKG 12-LEAD 87 87 140 104 [phone] 42 Normal sinus rhythm Nonspecific T wave abnormality Abnormal ECG When compared with ECG of 28-FEB-2024 20:02, No significant change was found Confirmed by NAYELI MORRIS ([id number]) on 03/01/2024 1:00:05 PM [email or web address] RetrieveTestByDateTime ?AdehrqsXN=[id number]&D ate=29-02-2024&Time=20 %3a57%3a59%3a00&TestTy pe=ECG&Site=3&OutputTy pe=PDF&Ext=PDF Normal [facility] ESR Westergren method (Bld) [Velocity]on 02-29-2024 ESR (Bld) [Velocity] 10 mm/h [facility] Comment on above: Performed at [facility] [address] [place] [address] [facility] Electrophoresis Protein, Ser umon 02-29-2024 Protein Electrophoresis, Serum SEE BELOW [facility] Comment on above: Total Protein, Serum 6.5 6.3-8.2 g/dL Albumin 3.95 3.75-5.01 g/dL Alpha 1 Globulin 0.41 0.19-0.46 g/dL Alpha 2 Globulin 0.47 L 0.48-1.05 g/dL Beta Globulin 0.80 0.48-1.10 g/dL Gamma 0.87 0.62-1.51 g/dL Monoclonal Protein N/A <=0.00 g/dL SPEP/BRISA Interpretation See Note Normal SPEP pattern. Immunofixation Electrophoresis (BRISA) is a more sensitive technique for identification of small monoclonal proteins. EER Protein Electrophoresis, Serum See Note Authorized individuals can access the [employer] Enhanced Report using the following link: [email or web address] Performed By: [employer] [address] [place] [address] [employer]: Sunny Roman MD, PhD CLIA Number: [id number] [facility] [employer] FERRITINon 02-29-2024 Ferritin [Mass/Vol] 1435 ng/mL High 22-322 [facility] Comment on above: Performed By: #### C RP, WSR #### [facility] [address] [place] [address] Ferritinon 02-29-2024 Ferritin IA [Mass/Vol] 1435 ng/mL High 22 - 322 ng/mL [facility] Comment on above: Performed at [facility] [address] [place] [address] GFR, ESTIMATEDon 02-29-2024 GFR/1.73 sq M.predicted MDRD (S/P/Bld) [Vol rate/Area] mL/min/{1.73_m2} Normal >60 [facility] Comment on above: Pediatric calculator link https://www.kidney.org/professionals/kdoqi/gfr_calculatorped Effective Jan 31, 2022 These results are not intended for use in patients <18 years of age. eGFR results are calculated without a race factor using the 2020 CKD-EPI equation. Careful clinical correlation is recommended, particularly when comparing to results calculated using previous equations. The CKD-EPI equation is less accurate in patients with extremes of muscle mass, extra-renal metabolism of creatinine, excessive creatine ingestion, or following therapy that affects renal tubular secretion. Performed at [facility] [employer] [address] [address] Result Comment: Pedi atric calculator link https://www.kidney.org/professionals/kdoqi/gfr_calculatorped Effective Jan 31, 2022 These results are not intended for use in patients <18 years of age. eGFR results are calculated without a race factor using the 2020 CKD-EPI equation. Careful clinical correlation is recommended, particularly when comparing to results calculated using previous equations. The CKD-EPI equation is less accurate in patients with extremes of muscle mass, extra-renal metabolism of creatinine, excessive creatine ingestion, or following therapy that affects renal tubular secretion. Performed By: #### C VFLU #### [facility] [address] [place] [address] HEPATIC FUNCTION PANELon Albumin [Mass/Vol] 3.3 g/dL Low 3.5-5.1 [facility] Comment on above: Performed By: #### C RP, WSR #### [facility] [address] [place] [address] ALP [Catalytic activity/Vol] 89 U/L Normal 38-126 [facility] Comment on above: Performed By: #### C RP, WSR #### [facility] [address] [place] [address] ALT [Catalytic activity/Vol] 49 U/L Normal 11-66 [facility] Comment on above: Performed By: #### C RP, WSR #### [facility] [address] [place] [address] AST [Catalytic activity/Vol] 61 U/L High 5-40 [facility] Comment on above: Performed By: #### C RP, WSR #### [facility] [address] [place] [address] Bilirubin [Mass/Vol] 0.7 mg/dL Normal 0.3-1.2 [facility] Comment on above: Performed By: #### C RP, WSR #### [facility] [address] [place] [address] Bilirubin.direct [Mass/Vol] 0.3 mg/dL Normal 0.1-13.8 [facility] Comment on above: Performed By: #### C RP, WSR #### [facility] [address] [place] [address] Protein [Mass/Vol] 5.8 g/dL Low 6.1-8.0 [facility] Comment on above: Performed By: #### C RP, WSR #### [facility] [address] [place] [address] HIV 1+2 Ab+HIV1 p24 Ag IA Ql on 02-29-2024 [facility] HIV AG/ABon 02-29-2024 HIV AG/AB SEE BELOW Normal [facility] Comment on above: Result Comment: HIV Ag/Ab NONREACTIVE NR No laboratory evidence of HIV infection. If acute HIV infection is suspected, consider testing for HIV-1 RNA. Performed at [facility], [address] [place] [address] . Performed By: #### C RP, WSR #### [facility] [address] [place] [address] HIV Screenon 02-29-2024 HIV 1+2 Ab+HIV1 p24 Ag IA Ql SEE BELOW [facility] Comment on above: HIV Ag/Ab NONREACTIV E NR No laboratory evidence of HIV infection. If acute HIV infection is suspected, consider testing for HIV-1 RNA. Performed at [facility], [address] [place] [address] . Hepatic function 2000 panelo n 02-29-2024 Albumin BCG dye [Mass/Vol] 3.3 g/dL Low 3.5 - 5.1 g/dL [facility] ALP [Catalytic activity/Vol] 89 U/L 38 - 126 U/L [facility] ALT No additional P-5'-P [Catalytic activity/Vol] 49 U/L 11 - 66 U/L [facility] AST [Catalytic activity/Vol] 61 U/L High 5 - 40 U/L [facility] Bilirubin [Mass/Vol] 0.7 mg/dL 0.3 - 1.2 mg/dL [facility] Bilirubin.conjugate d [Mass/Vol] 0.3 mg/dL 0.1 - 13.8 mg/dL [facility] Protein [Mass/Vol] 5.8 g/dL Low 6.1 - 8.0 g/dL [facility] Comment on above: Performed at [facility] [address] [place] [address] IRONon 02-29-2024 Iron [Mass/Vol] 31 ug/dL Low 65-195 [facility] Comment on above: Performed By: #### Irene GUPTA, WSR #### [facility] [address] [place] [address] IRON BINDING CAPACITYon 01-31 IRON BINDING CAPACITY 199 ug/dL Normal 171-450 [facility] Comment on above: Performed By: #### Irene GUPTA, WSR #### [facility] [address] [place] [address] IRON SATURATIONon 02-29-2024 Iron saturation [Mass fraction] 16 % Low 20 - 50 % [facility] Comment on above: Performed at [facility] [address] [place] [address] IRON SATURATION 16 % Low 20-50 [facility] Comment on above: Performed By: #### Irene GUPTA, WSR #### [facility] [address] [place] [address] Ironon 02-29-2024 Iron [Mass/Vol] 31 ug/dL Low 65 - 195 ug/dL [facility] Comment on above: Performed at [facility] [place] [address] [place] [address] Iron binding capacityon 01-31 Iron binding capacity [Mass/Vol] 199 ug/dL 171 - 450 ug/dL [facility] Comment on above: Performed at [facility] [place] [address] [place] [address] MR Brain WO and W contrast I Von 02-29-2024 No acute intracrania l findings. This document has been electronically signed by: Jadon Bhatti MD on 02/29/2024 02:17 AM [facility] MRI Brain W/WO Contrast COMPARISON: None FINDINGS: No evidence of acute infarction. No acute intracranial hemorrhage. No mass-effect or midline shift. No abnormal enhancement. No hydrocephalus. Clear paranasal sinuses. Clear mastoid air cells. Unremarkable orbits. [facility] Jadon Bhatti MD - 02/29/2024 MRI Brain W/WO Contrast COMPARISON: None FINDINGS: No evidence of acute infarction. No acute intracranial hemorrhage. No mass-effect or midline shift. No abnormal enhancement. No hydrocephalus. Clear paranasal sinuses. Clear mastoid air cells. Unremarkable orbits. IMPRESSION: No acute intracranial findings. This document has been electronically signed by: Jadon Bhatti MD on 02/29/2024 02:17 AM [facility] MR Brain WO and W contrast I VOrdered By: Jadon Bhatti on 02-29-2024 [facility] Work Phone: MRI BRAIN W WO CONTRASTon MRI BRAIN W WO CONTRAST MRI Brain W/WO Contrast COMPARISON: None FINDINGS: No evidence of acute infarction. No acute intracranial hemorrhage. No mass-effect or midline shift. No abnormal enhancement. No hydrocephalus. Clear paranasal sinuses. Clear mastoid air cells. Unremarkable orbits. IMPRESSION: No acute intracranial findings. This document has been electronically signed by: Jadon Bhatti MD on 02/29/2024 02:17 AM Interpreted by: Jadon Bhatti MD Signed by: Jadon Bhatti MD 02/29/24 Final result Normal [facility] No Panel Informationon 02-28 Interpretation and review of laboratory results Abnormal [facility] Interpretation and review of laboratory results Abnormal [facility] PROTEIN ELECTRO., SERUMon PROTEIN ELECTRO., SERUM SEE BELOW Normal [facility] Comment on above: Result Comment: Tota l Protein, Serum 6.5 6.3-8.2 g/dL Albumin 3.95 3.75-5.01 g/dL Alpha 1 Globulin 0.41 0.19-0.46 g/dL Alpha 2 Globulin 0.47 L 0.48-1.05 g/dL Beta Globulin 0.80 0.48-1.10 g/dL Gamma 0.87 0.62-1.51 g/dL Monoclonal Protein N/A <=0.00 g/dL SPEP/BRISA Interpretation See Note Normal SPEP pattern. Immunofixation Electrophoresis (BRISA) is a more sensitive technique for identification of small monoclonal proteins. EER Protein Electrophoresis, Serum See Note Authorized individuals can access the [employer] Enhanced Report using the following link: [email or web address] Performed By: [employer] [address] [place] [address] [employer]: Sunny Roman MD, PhD CLIA Number: [id number] Performed By: #### C RP, WSR #### [facility] [address] [place] [address] SCAN OF BLOOD SMEARon 2023 SCAN OF BLOOD SMEAR see below Normal [facility] Comment on above: Criteria Exceeded; S can of Differential Slide Performed Performed at [facility] [address] [place] [address] Result Comment: Crit eria Exceeded; Scan of Differential Slide Performed Performed By: #### C RP, WSR #### [facility] [address] [place] [address] SED RATEon 02-29-2024 SED RATE 10 mm/hr Normal 0-10 [facility] Comment on above: Performed By: #### C RP, WSR #### [facility] [address] [place], [place] [id number] ANION GAPon 02-28-2024 Anion gap [Moles/Vol] 14.0 mmol/L Normal 8.0-16.0 [facility] Comment on above: Result Comment: ANIO N GAP = Sodium -(Chloride + CO2) Performed By: #### M MIC CRBM2, LPBM2 #### [facility] [address] [facility] [place] [address] APTTon 02-28-2024 aPTT Coag (Bld) [Time] 24.6 s Normal 22.0-38.0 [facility] Comment on above: Result Comment: Ther apeutic Heparin Reference Range= 60-95 seconds (corresponds to 0.3 to 0.7 u/mL Anti-Xa factor activity) Performed By: #### M MIC, OSMANYBM2, LPBM2 #### [facility] [address] [facility] [place] [address] Anion Gapon 02-28-2024 Anion gap [Moles/Vol] 14.0 mmol/L 8.0 - 16.0 meq/L [facility] Comment on above: ANION GAP = Sodium - (Chloride + CO2) Performed at [facility] [address] [place] [address] CBC WITH DIFFERENTIALon 01-31 ABS BASOPHILS 0.0 thou/mm3 Normal 0.0-0.1 [facility] Comment on above: Performed By: #### M MIC, CRBM2, LPBM2 #### [facility] [address] [facility] [place] [address] ABS EOSINOPHILS 0.0 thou/mm3 Normal 0.0-0.4 [facility] Comment on above: Performed By: #### M MMP, CRBM2, LPBM2 #### [facility] [address] [facility] [place] [facility] [place] [address] ABS IMMATURE GRANS (IG) 0.03 thou/mm3 Normal 0.00-0.07 [facility] Comment on above: Performed By: #### M MIC, CRBM2, LPBM2 #### [facility] [address] [place] [address] ABS LYMPHOCYTES 0.4 thou/mm3 Low 1.0-4.8 [facility] Comment on above: Performed By: #### M MMP, CRBM2, LPBM2 #### [facility] [address] [facility] [place] [facility] [place] [address] ABS MONOCYTES 0.2 thou/mm3 Low 0.4-1.3 [facility] Comment on above: Performed By: #### M MMP, CRBM2, LPBM2 #### [facility] [address] [facility] [address] ABS NEUTROPHILS 1.6 thou/mm3 Low 1.8-7.7 [facility] Comment on above: Performed By: #### M MMP, CRBM2, LPBM2 #### [facility] [address] [facility] [address] Basophils/100 WBC (Bld) 1.7 % Normal [facility] Comment on above: Performed By: #### M MMP, CRBM2, LPBM2 #### [facility] [address] [facility] [address] Eosinophils/100 WBC (Bld) 0.9 % Normal [facility] Comment on above: Performed By: #### M MMP, CRBM2, LPBM2 #### [facility] [address] [facility] [address] Erythrocyte distribution width (RBC) [Ratio] 12.2 % Normal 11.5-14.5 [facility] Comment on above: Performed By: #### M MMP, CRBM2, LPBM2 #### [facility] [address] [facility] [address] Hematocrit (Bld) [Volume fraction] 39.2 % Low 42.0-52.0 [facility] Comment on above: Performed By: #### M MMP, CRBM2, LPBM2 #### [facility] [address] [facility] [address] Hemoglobin (Bld) [Mass/Vol] 13.1 g/dL Low 14.0-18.0 [facility] Comment on above: Performed By: #### M MMP, CRBM2, LPBM2 #### [facility] [address] [facility] [address] IMMATURE GRANS (IG) 1.3 % Normal [facility] Comment on above: Performed By: #### M MMP, CRBM2, LPBM2 #### [facility] [address] [facility] [address] Lymphocytes/100 WBC (Bld) 17.7 % Normal [facility] Comment on above: Performed By: #### M MMP, CRBM2, LPBM2 #### [facility] [address] [facility] [place] [facility] [place] [address] MCH (RBC) [Entitic mass] 30.2 pg Normal 26.0-33.0 [facility] Comment on above: Performed By: #### M MMP, CRBM2, LPBM2 #### [facility] [address] [facility] [place] [facility] [place] [address] MCHC (RBC) [Mass/Vol] 33.4 g/dL Normal 32.2-35.5 [facility] Comment on above: Performed By: #### M MMP, CRBM2, LPBM2 #### [facility] [address] [facility] [place] [facility] [place] [address] MCV (RBC) [Entitic vol] 90.3 fL Normal 80.0-94.0 [facility] Comment on above: Performed By: #### M MMP, CRBM2, LPBM2 #### [facility] [address] [facility] [address] Monocytes/100 WBC (Bld) 8.2 % Normal [facility] Comment on above: Performed By: #### M MMP, CRBM2, LPBM2 #### [facility] [address] [facility] [place] [facility] [place] [address] Neutrophils/100 WBC (Bld) 70.2 % Normal [facility] Comment on above: Performed By: #### M MMP, CRBM2, LPBM2 #### [facility] [address] [facility] [place] [facility] [place] [address] NRBC 0 /100 wbc Normal [facility] Comment on above: Performed By: #### M MMP, CRBM2, LPBM2 #### [facility] [address] [facility] [place] [facility] [place] [address] PLATELET 107 thou/mm3 Low 130-400 [facility] Comment on above: Performed By: #### M MMP, CRBM2, LPBM2 #### [facility] [address] [facility] [place] [facility] [place] [address] Platelet mean volume (Bld) [Entitic vol] 10.7 fL Normal 9.4-12.4 [facility] Comment on above: Performed By: #### M MMP, CRBM2, LPBM2 #### [facility] [address] [facility] [place] [facility] [place] [address] RBC 4.34 mill/mm3 Low 4.70-6.10 [facility] Comment on above: Performed By: #### M MMP, CRBM2, LPBM2 #### [facility] [address] [place] [address] RDW-SD 40.4 fL Normal 35.0-45.0 [facility] Comment on above: Performed By: #### M MMP, CRBM2, LPBM2 #### [facility] [address] [facility] [place] [address] WBC 2.3 thou/mm3 Low 4.8-10.8 [facility] Comment on above: Performed By: #### M MMP, CRBM2, LPBM2 #### [facility] [address] [place] [address] CBC with Auto Differentialon 02-28-2024 Basophils (Bld) [#/Vol] 0.0 10*3/uL [facility] Eosinophils Absolute 0.0 [facility] Erythrocyte distribution width (RBC) [Entitic vol] 40.4 fL 35.0 - 45.0 fL [facility] Immature granulocytes (Bld) [#/Vol] 0.03 10*3/uL [facility] Immature granulocytes/100 WBC (Bld) 1.3 % [facility] Interpretation and review of laboratory results Abnormal [facility] Lymphocytes Absolute 0.4 Low [facility] Monocytes Absolute 0.2 Low [facility] Neutrophils Absolute 1.6 Low [facility] Nucleated RBC/100 WBC (Bld) [Ratio] 0 % /100 wbc [facility] Comment on above: Performed at [facility] [address] [place] [address] Platelets (Bld) [#/Vol] 107 10*3/uL Low [facility] RBC (Bld) [#/Vol] 4.34 10*6/uL Low [facility] WBC (Bld) [#/Vol] 2.3 10*3/uL Low [facility] COMP. METABOLIC PANELon 01-31 Albumin [Mass/Vol] 3.6 g/dL Normal 3.5-5.1 [facility] Comment on above: Performed By: #### M MMP, CRBM2, LPBM2 #### [facility] [address] [place] [address] ALP [Catalytic activity/Vol] 85 U/L Normal 38-126 [facility] Comment on above: Performed By: #### M MMP, CRBM2, LPBM2 #### [facility] [address] [place] [address] ALT [Catalytic activity/Vol] 39 U/L Normal 11-66 [facility] Comment on above: Performed By: #### M MMP, CRBM2, LPBM2 #### [facility] [address] [place] [address] AST [Catalytic activity/Vol] 45 U/L High 5-40 [facility] Comment on above: Performed By: #### M MMP, CRBM2, LPBM2 #### [facility] [address] [place] [address] Bilirubin [Mass/Vol] 0.8 mg/dL Normal 0.3-1.2 [facility] Comment on above: Performed By: #### M MMP, CRBM2, LPBM2 #### [facility] [address] [place] [address] Calcium [Mass/Vol] 8.5 mg/dL Normal 8.5-10.5 [facility] Comment on above: Performed By: #### M MMP, CRBM2, LPBM2 #### [facility] [address] [place] [address] Chloride [Moles/Vol] 101 mmol/L Normal 98-111 [facility] Comment on above: Performed By: #### M MMP, CRBM2, LPBM2 #### [facility] [address] [place] [address] CO2 [Moles/Vol] 25 mmol/L Normal 23-33 [facility] Comment on above: Performed By: #### M MMP, CRBM2, LPBM2 #### [facility] [address] [place] [address] Creatinine [Mass/Vol] 1.2 mg/dL Normal 0.4-1.2 [facility] Comment on above: Performed By: #### M MMP, CRBM2, LPBM2 #### [facility] [address] [place] [address] Glucose [Mass/Vol] 94 mg/dL Normal 70-108 [facility] Comment on above: Performed By: #### M MMP, CRBM2, LPBM2 #### [facility] [address] [facility] [place] [facility] [place] [address] POTASSIUM WITH REFLEX MG 4.1 meq/L Normal 3.5-5.2 [facility] Comment on above: Performed By: #### M MMP, CRBM2, LPBM2 #### [facility] [address] [facility] [address] Protein [Mass/Vol] 6.2 g/dL Normal 6.1-8.0 [facility] Comment on above: Performed By: #### M MMP, CRBM2, LPBM2 #### [facility] [address] [facility] [address] Sodium [Moles/Vol] 140 mmol/L Normal 135-145 [facility] Comment on above: Performed By: #### M MMP, CRBM2, LPBM2 #### [facility] [address] [facility] [place] [address] Urea nitrogen [Mass/Vol] 15 mg/dL Normal 7-22 [facility] Comment on above: Performed By: #### M MMP, CRBM2, LPBM2 #### [facility] [address] [facility] [place] [address] Comprehensive metabolic 2000 panelon 02-28-2024 Albumin BCG dye [Mass/Vol] 3.6 g/dL 3.5 - 5.1 g/dL [facility] ALP [Catalytic activity/Vol] 85 U/L 38 - 126 U/L [facility] ALT No additional P-5'-P [Catalytic activity/Vol] 39 U/L 11 - 66 U/L [facility] Comment on above: Performed at [facility] [address] [place] [address] AST [Catalytic activity/Vol] 45 U/L High 5 - 40 U/L [facility] Bilirubin [Mass/Vol] 0.8 mg/dL 0.3 - 1.2 mg/dL [facility] Calcium [Mass/Vol] 8.5 mg/dL 8.5 - 10. 5 mg/dL [facility] Chloride [Moles/Vol] 101 mmol/L 98 - 111 meq/L [facility] CO2 [Moles/Vol] 25 mmol/L 23 - 33 meq/L [facility] Creatinine [Mass/Vol] 1.2 mg/dL 0.4 - 1.2 mg/dL [facility] Glucose [Mass/Vol] 94 mg/dL 70 - 108 mg/dL [facility] Interpretation and review of laboratory results Abnormal [facility] Potassium [Moles/Vol] 4.1 mmol/L 3.5 - 5.2 meq/L [facility] Protein [Mass/Vol] 6.2 g/dL 6.1 - 8.0 g/dL [facility] Sodium [Moles/Vol] 140 mmol/L 135 - 145 meq/L [facility] Urea nitrogen [Mass/Vol] 15 mg/dL 7 - 22 mg/dL [facility] EKG 12 Leadon 02-28-2024 Atrial Rate 91 BPM [facility] Health P [place] 69 degrees [facility] P-R Interval 142 ms [facility] Q-T Interval 360 ms [facility] QRS Duration 100 ms [facility] QTc Calculation (Bazett) 442 ms [facility] R [place] 70 degrees [facility] T [place] 25 degrees [facility] Ventricular Rate 91 BPM [facility] Normal sinus rhythm Incomplete right bundle branch block Nonspecific T wave abnormality Abnormal ECG When compared with ECG of 28-FEB-2024 16:05, No significant change was found Confirmed by Arben Mercado ([id number]) on 02/28/2024 8:19:15 PM [facility] STR MUSE Unknown, Provider, M D - 02/28/2024 Normal sinus rhythm Incomplete right bundle branch block Nonspecific T wave abnormality Abnormal ECG When compared with ECG of 28-FEB-2024 16:05, No significant change was found Confirmed by Arben Mercado ([id number]) on 02/28/2024 8:19:15 PM [facility] Normal sinus rhythm Incomplete right bundle branch block Nonspecific ST and T wave abnormality Abnormal ECG No previous ECGs available Clinical correlation is indicated Confirmed by Arben Mercado ([id number]) on 02/28/2024 7:52:29 PM [facility] STR MUSE Unknown, Provider, M D - 02/28/2024 Normal sinus rhythm Incomplete right bundle branch block Nonspecific ST and T wave abnormality Abnormal ECG No previous ECGs available Clinical correlation is indicated Confirmed by Arben Mercado ([id number]) on 02/28/2024 7:52:29 PM [employer] EKG 12 LeadOrdered By: Provi kenya Unknown on 02-28-2024 Atrial Rate 78 BPM [employer] Work Phone: P [place] 56 degrees [employer] Work Phone: P-R Interval 154 ms [employer] Phone: Q-T Interval 386 ms [employer] Phone: QRS Duration 102 ms [employer] Work Phone: QTc Calculation (Bazett) 440 ms [employer] Work Phone: R [place] 63 degrees [employer] Work Phone: T [place] 19 degrees [employer] Phone: Ventricular Rate 78 BPM [facility] Work Phone: [employer] Work Phone: EKG 12-LEADon 02-28-2024 EKG 12-LEAD 91 91 142 100 [phone] Normal sinus rhythm Incomplete right bundle branch block Nonspecific T wave abnormality Abnormal ECG When compared with ECG of 28-FEB-2024 16:05, No significant change was found Confirmed by Arben Mercado ([id number]) on 02/28/2024 8:19:15 PM [email or web address] RetrieveTestByDateTime ?UiomcsuMC=[id number]&D ate=28-02-2024&Time=20 %3a02%3a02%3a00&TestTy pe=ECG&Site=3&OutputTy pe=PDF&Ext=PDF Normal [facility] EKG 12-LEAD 78 78 154 102 [phone] Normal sinus rhythm Incomplete right bundle branch block Nonspecific ST and T wave abnormality Abnormal ECG No previous ECGs available Clinical correlation is indicated Confirmed by Arben Mercado ([id number]) on 02/28/2024 7:52:29 PM [email or web address] RetrieveTestByDateTime ?UrnslksHP=[id number]&D ate=28-02-2024&Time=16 %3a05%3a49%3a00&TestTy pe=ECG&Site=3&OutputTy pe=PDF&Ext=PDF Normal [facility] EKG Rhythm Stripon PACEART [facility] GFR, ESTIMATEDon 02-28-2024 GFR/1.73 sq M.predicted MDRD (S/P/Bld) [Vol rate/Area] 83 mL/min/{1.73_m2} Normal >60 [facility] Comment on above: Pediatric calculator link https://www.kidney.org/professionals/kdoqi/gfr_calculatorped Effective Jan 31, 2022 These results are not intended for use in patients <18 years of age. eGFR results are calculated without a race factor using the 2020 CKD-EPI equation. Careful clinical correlation is recommended, particularly when comparing to results calculated using previous equations. The CKD-EPI equation is less accurate in patients with extremes of muscle mass, extra-renal metabolism of creatinine, excessive creatine ingestion, or following therapy that affects renal tubular secretion. Performed at [facility] [address] [place] [address] Result Comment: Pedi atric calculator link https://www.kidney.org/professionals/kdoqi/gfr_calculatorped Effective Jan 31, 2022 These results are not intended for use in patients <18 years of age. eGFR results are calculated without a race factor using the 2020 CKD-EPI equation. Careful clinical correlation is recommended, particularly when comparing to results calculated using previous equations. The CKD-EPI equation is less accurate in patients with extremes of muscle mass, extra-renal metabolism of creatinine, excessive creatine ingestion, or following therapy that affects renal tubular secretion. Performed By: #### M MMP, CRBM2, LPBM2 #### [facility] [address] [place] [address] INR Coag (PPP) [Relative kurt e]on 02-28-2024 [facility] Influenza virus A and B RNA and SARS-CoV-2 (COVID-19) N gene panel MARIKA+probe (Resp)on 02-28-2024 FLUAV RNA MARIKA+probe Ql (Resp) Not detected NOT DETECTED [facility] FLUBV RNA MARIKA+probe Ql (Resp) Not detected NOT DETECTED [facility] Comment on above: Performed at [email or web address] [address] [place] [address] SARS-CoV-2 (COVID-19) RNA MARIKA+probe Ql (Resp) Not detected NOT DETECTED [facility] Comment on above: Not Detected results do not preclude SARS-CoV-2 infection and should not be used as the sole basis for patient management decisions. Results must be combined with clinical observations, patient history, and epidemiological information. Testing was performed using DERIAN Kristina SARS-CoV-2 and Influenza A/B nucleic acid assay. This test is a multiplex Real-Time Reverse Transcriptase Polymerase Chain Reaction (RT-PCR)-based in vitro diagnostic test intended for the qualitative detection of nucleic acids from SARS-CoV-2, influenza A, and influenza B in nasopharyngeal and nasal swab specimens. [facility] LDon 02-28-2024 LD 532 U/L High 100-190 [facility] Comment on above: Performed By: #### M MMP, CRBM2, LPBM2 #### [facility] [address] [facility] [address] Lactate Dehydrogenaseon 01-31 LDH Lactate to pyruvate reaction [Catalytic activity/Vol] 532 U/L High 100 - 190 U/L [facility] Comment on above: Performed at [email or web address] [address] [place] [address] MAGNESIUMon 02-28-2024 Magnesium [Mass/Vol] 2.3 mg/dL Normal 1.6-2.4 [facility] Comment on above: Performed By: #### C VFLU #### [facility] [address] [place] [address] MR Brain WO and W contrast I Von 02-28-2024 Radiology Study observation (narrative) [facility] Magnesiumon 02-28-2024 Magnesium [Mass/Vol] 2.3 mg/dL 1.6 - 2.4 mg/dL [facility] Comment on above: Performed at [facility] [place] [address] [place] [address] Magnesium [Mass/Vol]on 02-27 [facility] No Panel Informationon 02-27 Interpretation and review of laboratory results Abnormal [facility] PROTHOMBIN TIMEon 02-28-2024 INR Coag (Bld) [Relative time] 1.13 {INR} Normal 0.85-1.13 [facility] Comment on above: Result Comment: ---- -----INDICATION INR Reference Range DVT, PE, AF, AMI, tissue heart valve 2.0 to 3.0 Mechanical prosthetic valves 2.5 to 3.5 Performed By: #### M MMP, CRBM2, LPBM2 #### [facility] [address] [place] [address] Protime-INRon 02-28-2024 INR Coag (PPP) [Relative time] 1.13 {INR} 0.85 - 1.13 [facility] Comment on above: ---------INDICATION- INR Reference Range DVT, PE, AF, AMI, tissue heart valve 2.0 to 3.0 Mechanical prosthetic valves 2.5 to 3.5 Performed at [facility] [address] [place] [address] RETICULOCYTE PANELon 024 ABS RETIC COUNT 47.0 thou/mm3 Normal 20.0-115.0 [facility] Comment on above: Performed By: #### M MMP, CRBM2, LPBM2 #### [facility] [address] [place] [address] IMM RETIC FRACTION 18.5 % High 2.3-13.4 [facility] Comment on above: Performed By: #### M MMP, CRBM2, LPBM2 #### [facility] [address] [facility] [place] [address] RETIC HEMOGLOBIN 29.0 pg Normal 28.2-35.7 [facility] Comment on above: Performed By: #### M MMP, CRBM2, LPBM2 #### [facility] [address] [facility] [place] [address] RETICULOCYTES 1.1 % Normal 0.5-2.0 [facility] Comment on above: Performed By: #### M MMP, CRBM2, LPBM2 #### [facility] [address] [facility] [place] [address] Reticulocyteson 02-28-2024 Hemoglobin Auto (Reticulocytes) [Entitic mass] 29.0 pg 28.2 - 35.7 pg [facility] Comment on above: Performed at [facility] [address] [place] [address] Immature reticulocytes/Total reticulocytes (Bld) 18.5 % High 2.3 - 13.4 % [facility] Interpretation and review of laboratory results Abnormal [facility] Reticulocytes (Bld) [#/Vol] 47.0 10*3/uL [facility] Reticulocytes/100 RBC (Bld) 1.1 % 0.5 - 2.0 % [facility] SARS-COV-2 & INFLUENZA A/[facility] 02-28-2024 INFLUENZA A, RT-PCR Not detected Normal NOT DETECTED [facility] Comment on above: Performed By: #### C VFLU #### [facility] [address] [place] [address] INFLUENZA B, RT-PCR Not detected Normal NOT DETECTED [facility] Comment on above: Performed By: #### C VFLU #### [facility] [address] [place] [address] SARS-CoV-2 (COVID-19) RNA MARIKA+probe Ql (Unsp spec) Not detected Normal NOT DETECTED [facility] Comment on above: Result Comment: Not Detected results do not preclude SARS-CoV-2 infection and should not be used as the sole basis for patient management decisions. Results must be combined with clinical observations, patient history, and epidemiological information. Testing was performed using DERIAN Kristina SARS-CoV-2 and Influenza A/B nucleic acid assay. This test is a multiplex Real-Time Reverse Transcriptase Polymerase Chain Reaction (RT-PCR)-based in vitro diagnostic test intended for the qualitative detection of nucleic acids from SARS-CoV-2, influenza A, and influenza B in nasopharyngeal and nasal swab specimens. Performed By: #### C VFLU #### [facility] [address] [place] [address] URIC ACIDon 02-28-2024 Urate [Mass/Vol] 7.6 mg/dL High 3.7-7.0 [facility] Comment on above: Performed By: #### M MMP, CRBM2, LPBM2 #### [facility] [address] [facility] [address] Uric Acidon 02-28-2024 Urate [Mass/Vol] 7.6 mg/dL High 3.7 - 7.0 mg/dL [facility] Comment on above: Performed at [facility] [address] [place] [address] VITAMIN B12 FOLATEon 024 Cobalamin (Vitamin B12) [Mass/Vol] 734 pg/mL Normal 211-911 [facility] Comment on above: Performed By: #### C DMITRY, SCAN1 #### [address] [address] FOLATE 4.1 ng/mL Low 4.8-24.2 [facility] Comment on above: Performed By: #### C DMITRY, SCAN1 #### [facility] [address] [address] Vitamin B12 & Folateon 02-27 Cobalamin (Vitamin B12) [Mass/Vol] 734 pg/mL 211 - 911 pg/mL [facility] Folate [Mass/Vol] 4.1 ng/mL Low 4.8 - 24.2 ng/mL [facility] Comment on above: Performed at [facility] [address] [place] [address] Interpretation and review of laboratory results Abnormal [facility] aPTT Coag (Bld) [Time]on aPTT Coag (PPP) [Time] 24.6 s [facility] Comment on above: Therapeutic Heparin Reference Range= 60-95 seconds (corresponds to 0.3 to 0.7 u/mL Anti-Xa factor activity) Performed at [facility] [address] [place] [address] 25-hydroxyvitamin D3 [Mass/V ol]on 02-27-2024 [facility] BLOOD SMEAR REVIEWon PATHOLOGIST REVIEWED Estefani FUNES [facility] Comment on above: Result Comment: No s chistocytes seen Performed By: #### C RP, WSR #### [facility] [address] [place] [address] SMEAR REVIEWED BY PATHOLOGIST see below Normal [facility] Comment on above: Result Comment: See Below Performed By: #### C RP, WSR #### [facility] [address] [place] [address] C-REACTIVE PROTEINon C-REACTIVE PROTEIN 6.83 mg/dl High 0.00-1.00 [facility] Comment on above: Performed By: #### C RP, WSR #### [facility] [address] [place] [address] C-Reactive Proteinon CRP [Mass/Vol] 6.83 mg/dl High 0.00 - 1.00 mg/dl [facility] Comment on above: Performed at [facility] [address] [place] [address] CALCIUM (IONIZED) * WBon CALCIUM (IONIZED) * WB 1.11 mmol/L Low 1.12-1.32 [facility] Comment on above: Performed By: #### C BCWD, SCAN1 #### [facility] [address] [place] [address] CREATININE (URINE)on Creatinine (U) [Mass/Vol] 37.4 mg/dL [facility] Comment on above: Performed By: #### C RP, WSR #### [facility] [address] [place] [address] CRP [Mass/Vol]on 02-27-2024 Interpretation and review of laboratory results Abnormal [facility] Calcium, Ionizedon 4 Calcium.ionized ISE (Bld) [Moles/Vol] 1.11 mmol/L Low 1.12 - 1.32 mmol/L [facility] Comment on above: Performed at [facility] [address] [place] [address] Calcium.ionized ISE (Bld) [M oles/Vol]on 02-27-2024 Interpretation and review of laboratory results Abnormal [facility] Creatinine, Random Urineon 1 Creatinine (U) [Mass/Vol] 37.4 mg/dL [facility] Comment on above: Performed at [facility] [address] [place] [address] DRUG ABUSE SCREENon 02-27-20 24 AMPHETAMINE/METHAMP H Negative Normal NEGATIVE [facility] Comment on above: Performed By: #### C RP, WSR #### [facility] [address] [place] [address] BARBITURATE Negative Normal NEGATIVE [facility] Comment on above: Performed By: #### C RP, WSR #### [facility] [address] [place] [address] Benzodiazepines Ql (U) Negative Normal NEGATIVE [facility] Comment on above: Performed By: #### C RP, WSR #### [facility] [address] [place] [address] Cannabinoids Screen Ql (U) Positive Normal NEGATIVE [facility] Comment on above: Performed By: #### C RP, WSR #### [facility] [address] [place] [address] COCAINE METABOLITE Negative Normal NEGATIVE [facility] Comment on above: Performed By: #### C RP, WSR #### [facility] [address] [place] [address] FENTANYL Negative Normal NEGATIVE [facility] Comment on above: Result Comment: A N egative result for a drug abuse screen test indicates that the drug concentration is below the following cutoffs: Amphetamine/Methamphetamine 1000 ng/ml Barbiturate 200 ng/ml Benzodiazapine 200 ng/ml Cannabinoids 50 ng/ml Cocaine Metabolite 300 ng/ml Opiates 300 ng/ml Oxycodone 100 ng/ml Phencyclidine 25 ng/ml Fentanyl 5 ng/ml A Positive result for a drug abuse screen test should be considered presumptive positive until/unless confirmed by another method. (Additional request) Quantitative values from a reference laboratory are available upon additional request. These results are for medical use only. Performed By: #### C RP, WSR #### [facility] [address] [place] [address] Opiates Ql (U) Negative Normal NEGATIVE [facility] Comment on above: Performed By: #### C RP, WSR #### [facility] [address] [place] [address] OXYCODONE Negative Normal NEGATIVE [facility] Comment on above: Performed By: #### C RP, WSR #### [facility] [address] [place] [address] Phencyclidine Ql (U) Negative Normal NEGATIVE [facility] Comment on above: Performed By: #### C RP, WSR #### [facility] [address] [place] [address] EEG 24 houron 02-27-2024 Rm Davis MD 02/27/2024 11:51 AM LONG-TERM EEG-VIDEO MONITORING CLINICAL NEUROPHYSIOLOGY LABORATORY DEPARTMENT OF NEUROLOGY [facility] Patient: Ethan Donald Age: 33 y.o. Referring Physician: Dolores Reyes MD History: The patient is a 33 y.o. male who presented breakthrough seizure/encephalopathy . This long-term video-EEG monitoring study was performed to determine the nature of the patient's clinical events. The patient is on neuroactive medications. Ethan Donald Current Facility-Administered Medications Medication Dose Route Frequency Provider Last Rate Last Admin sodium chloride flush 0.9 % injection 10 mL 10 mL IntraVENous 2 times per day Jenny Gunter APRN - CNP 10 mL at 02/27/24 0815 sodium chloride flush 0.9 % injection 10 mL 10 mL IntraVENous PRN Jenny Gunter APRN - DECALER 0.9 % sodium chloride infusion IntraVENous PRN Jenny Gunter APRN - DECALER potassium chloride (KLOR-CON M) extended release tablet 40 mEq 40 mEq Oral PRN Jenny Gunter APRN - SANJU Or potassium bicarb-citric acid (EFFER-K) effervescent tablet 40 mEq 40 mEq Oral PRN Jenny Gunter, PRUDENCE - SANJU magnesium sulfate 2000 mg in 50 mL IVPB premix 2,000 mg IntraVENous PRN Jenny Gunter APRN - CNP enoxaparin (LOVENOX) injection 40 mg 40 mg SubCUTAneous Daily Jenny Gunter APRN - DECALER 40 mg at 02/27/24 0814 ondansetron (ZOFRAN-ODT) disintegrating tablet 4 mg 4 mg Oral Q8H PRN Jenny Gunter APRN - CNP Or ondansetron (ZOFRAN) injection 4 mg 4 mg IntraVENous Q6H PRN Jenny Gunter APRN - DECALER 4 mg at 02/27/24 0815 polyethylene glycol (GLYCOLAX) packet 17 g 17 g Oral Daily PRN Jenny Gunter APRN - CNP acetaminophen (TYLENOL) tablet 650 mg 650 mg Oral Q6H PRN Jenny Gunter APRN - DECALER 650 mg at 02/27/24 0128 Or acetaminophen (TYLENOL) suppository 650 mg 650 mg Rectal Q6H PRN Jenny Gunter APRN - SANJU LORazepam (ATIVAN) injection 4 mg 4 mg IntraVENous Q5 Min PRN Jenny Gunter APRN - CNP nicotine (NICODERM CQ) 14 MG/24HR 1 patch 1 patch TransDERmal Daily Jenny Gunter APRN - CNP valproate (DEPACON) 1,500 mg in sodium chloride 0.9 % 100 mL IVPB 1,500 mg IntraVENous Once Ronda Hawley PA Technical Description: This is a 21-channel digital EEG recording with time-locked video. Electrodes were placed in accordance with the 10-20 International System of Electrode Placement. Single lead EKG monitoring was included. Baseline EEG Recording: A formal baseline EEG recording was not obtained. Day 1 - 02/27/24, starting at 9:18 am Interictal EEG Samples: In the alert state, the posterior background rhythm was a symmetric, well-modulated, 9-10 Hz, 20-40 uV rhythm which reacted symmetrically to eye opening and had a normal frequency-amplitude gradient with an age-appropriate mixture of frequencies. During drowsiness, there were bursts of diffuse slowing and waxing and waning of the posterior dominant rhythm. During stage II sleep symmetric V waves, K complexes, and sleep spindles were seen. The appearance of diffuse delta activity was observed in slow wave sleep. Muscle atonia and frequent eye movement artifact was seen during periods of REM sleep. No abnormalities were activated by sleep. The EKG channel revealed no abnormalities. Ictal EEG Recording / Patient Events: During this period the patient had no events or seizures. Summary: During this day of recording no events were recorded. The interictal EEG was normal. Monitoring was continued in order to record the patient's typical events. The EKG channel revealed no abnormalities. RM DAVIS MD Diplomate, [place] [employer] and Neurology Diplomate, [place] Board of Clinical Neurophysiology Diplomate, [place] [employer] of Epilepsy Please note this is a preliminary report and updated daily. The final report will have a summary of behavior and electrographic findings with clinical correlation. [facility] EEG 24 hourOrdered By: Rm Davis on 02-27-2024 [facility] Work Phone: EKG Rhythm Stripon 4 PACEART [facility] PACEART [facility] PACEART [facility] PACEART [facility] Westergren method (Bld) [Velocity]on 02-27-2024 ESR (Bld) [Velocity] 9 mm/h [facility] Comment on above: Performed at [email or web address] [address] [place] [address] [facility] FIBRINOGENon 02-27-2024 FIBRINOGEN 402 mg/100ml Normal 155-475 [facility] Comment on above: Performed By: #### C BCWD, SCAN1 #### [facility] [address] [place] [address] Fibrinogenon 02-27-2024 Fibrinogen Coag (PPP) [Mass/Vol] 402 mg/dL [facility] Comment on above: Performed at [facility] [address] [place] [address] 24368 Fibrinogen Coag (PPP) [Mass/ Vol]on 02-27-2024 [facility] [employer] No Panel Informationon 02-26 [facility] [employer] OSMOLALITY URINEon 4 OSMOLALITY URINE see below Normal 250-750 [facility] Comment on above: Result Comment: Test was sent to an outside laboratory. Please refer to 'Reference' test. Performed By: #### C RP, WSR #### [facility] [facility] [employer] [address] [place] [address] 39271 Osmolality (U) [Osmolality]o n 02-27-2024 [facility] [employer] Osmolality, urineon 02-27-20 24 Osmolality (U) [Osmolality] see below [facility] Comment on above: Test was sent to an outside laboratory. Please refer to 'Reference' test. Performed at [facility] [address] [place] [address] PHOSPHORUSon 02-27-2024 Phosphate [Mass/Vol] 4.0 mg/dL Normal 2.4-4.7 [facility] Comment on above: Performed By: #### C BCWD, SCAN1 #### [facility] [employer] [address] [place] [address] 53803 POTASSIUM (URINE)on 02-27-20 24 POTASSIUM (URINE) 9.5 meq/l Normal [facility] Comment on above: Performed By: #### C RP, WSR #### [facility] [employer] [address] [place] [address] 90361 Path Review, Smearon 024 REVIEWED BY Estefani FUNES [facility] Kera Comment on above: No schistocytes seen Performed at [facility] [address] [place] [address] Smear Review see below [employer] [facility] [employer] [facility] Comment on above: See Below [employer] Phosphate [Mass/Vol]on 02-26 [facility] Phosphoruson 02-27-2024 Phosphate [Mass/Vol] 4.0 mg/dL 2.4 - 4.7 mg/dL [facility] Comment on above: Performed at [facility] [address] [place] [address] [phone] Potassium, urine, randomon 1 Potassium (U) [Moles/Vol] 9.5 mmol/L [employer] Comment on above: Performed at [facility] [address] [place] [address] REFERENCE SPECIMENon 024 REFERENCE RANGE 50-1400 mOsm Normal [facility] TEST RESULT (WITH UNITS) 182 mOsm Normal [facility] ORIGINAL SAMPLE NUMBER [id number] Normal [facility] REFERENCE LOCATION see below Normal [facility] Comment on above: Result Comment: Perf ormed at [facility] [address] [place] [address] TEST(S) BEING PERFORMED URINE OSMO Normal [facility] Reference lab sampleon 02-26 ORIGINAL SAMPLE NUMBER [id number] [employer] REFERENCE LOCATION see below [employer] [facility] Kera Comment on above: Performed at [facility] [address] [place] [address] Reference Range 50-1400 mOsm [employer] Digital TEST RESULTS WITH UNITS 182 mOsm [employer] TEST(S) BEING PERFORMED URINE OSMO Gear6 SED RATEon 02-27-2024 SED RATE 9 mm/hr Normal 0- [facility] Comment on above: Performed By: #### C RP, WSR #### [facility] [address] [place] [address] 79786 SODIUM (URINE)on 02-27-2024 Sodium (U) [Moles/Vol] mmol/L Normal [facility] Comment on above: Performed By: #### C RP, WSR #### [facility] [address] [place] [address] 09304 Sodium, urine, randomon 01-30 Sodium (U) [Moles/Vol] mmol/L meq/l [employer] Comment on above: Performed at [facility] [address] [place] [address] 62953 URINALYSIS W/ MICROon 2023 BACTERIA NONE SEEN Normal FEW/NONE SEEN [facility] Comment on above: Performed By: #### U AWM2 #### [facility] [place] [address] CASTS NONE SEEN Normal NONE SEEN [facility] Comment on above: Performed By: #### U AWM2 #### [facility] [address] [place] [address] CASTS 2 NONE SEEN Normal [facility] Comment on above: Performed By: #### U AWM2 #### [facility] [address] [place] [address] Crystals LM Nom (Urine sed) NONE SEEN Normal NONE SEEN [facility] Comment on above: Performed By: #### U AWM2 #### [facility] [address] [place] [address] EPITHELIAL NONE SEEN Normal 3-5/hpf [facility] Comment on above: Performed By: #### U AWM2 #### [facility] [address] [place] [address] [place] [address] MISCELLANEOUS 2 NONE SEEN Normal [facility] Comment on above: Performed By: #### U AWM2 #### [facility] [address] [place] [address] [place] [address] RBC NONE SEEN Normal 0-2/hpf [facility] Comment on above: Performed By: #### U AWM2 #### [facility] [address] [place] [address]87[address] RENAL EPITHELIAL NONE SEEN Normal NONE SEEN [facility] Comment on above: Performed By: #### U AWM2 #### [facility] [address] [place] [address] [place] [address] WBC NONE SEEN Normal 0-4/hpf [facility] Comment on above: Performed By: #### U AWM2 #### [facility] [address] [place] [address] [place] [address] YEAST NONE SEEN Normal NONE SEEN [facility] Comment on above: Performed By: #### U AWM2 #### [facility] [address] [place] [address] Bilirubin Ql (U) Negative Normal NEGATIVE [facility] Comment on above: Performed By: #### U AWM2 #### [facility] [address] [place] [address] CHARACTER CLEAR Normal CLR-SL.CLOUD [facility] Comment on above: Performed By: #### U AWM2 #### [facility] [address] [place] [address] Color (U) YELLOW Normal YELLOW-STRAW [facility] Comment on above: Performed By: #### U AWM2 #### [facility] [address] [place] [address] 28285 Glucose Ql (U) Negative Normal NEGATIVE [facility] Comment on above: Performed By: #### U AWM2 #### [facility] [address] [place] [address] 88147 Hemoglobin Ql (U) Negative Normal NEGATIVE [facility] Comment on above: Performed By: #### U AWM2 #### [facility] [address] [place] [address] 05013 Ketones Ql (U) Negative Normal NEGATIVE [facility] Comment on above: Performed By: #### U AWM2 #### [address] [address] LEUKOCYTES Negative Normal NEGATIVE [facility] Comment on above: Performed By: #### U AWM2 #### [facility] [address] [place] [address]019 Nitrite Ql (U) Negative Normal NEGATIVE [facility] Comment on above: Performed By: #### U AWM2 #### [address] [address] pH (U) 6.5 [pH] Normal 5.0 - 9.0 [facility] Comment on above: Performed By: #### U AWM2 #### [address] [address] Protein Ql (U) Negative Normal NEGATIVE [facility] Comment on above: Performed By: #### U AWM2 #### [facility] [address] [place] [address] Specific gravity (U) [Rel density] 1.007 Normal 1.002-1.030 [facility] Comment on above: Performed By: #### U AWM2 #### [facility] [address] [place] [address] Urobilinogen Qn (U) 1.0 {Butch'U}/dL Normal 0.0 - 1. 0 [facility] Comment on above: Performed By: #### U AWM2 #### [facility] [address] [place] [address] Urinalysis dipstick W Reflex Microscopic panel (U)on 02-27-2024 Bacteria, UA NONE SEEN FEW/NONE SEEN [facility] Bilirubin Ql (U) Negative NEGATIVE [facility] Casts LM.LPF (Urine sed) [#/Area] NONE SEEN /lpf [facility] Character (U) CLEAR CLR-SL.CLOUD [facility] Charcoal LM Ql (Urine sed) NONE SEEN [facility] Comment on above: Performed at [facility] [place] [address] [place] [address] Color (U) YELLOW YELLOW-STRAW [facility] Crystals LM Ql (Urine sed) NONE SEEN NONE SEEN [facility] Epithelial Cells, UA NONE SEEN 3-5/hpf /hpf [facility] Epithelial cells.renal LM.HPF (Urine sed) [#/Area] NONE SEEN NONE SEEN [facility] Fungi.yeastlike LM Ql (Urine sed) NONE SEEN NONE SEEN [facility] Glucose Auto test strip Ql (U) Negative NEGATIVE mg/dl [facility] Hemoglobin Auto test strip Ql (U) Negative NEGATIVE [facility] Ketones Auto test strip Ql (U) Negative NEGATIVE [facility] Leukocyte esterase Auto test strip Ql (U) Negative NEGATIVE [facility] Nitrite Auto test strip Ql (U) Negative NEGATIVE [facility] pH (U) 6.5 [pH] 5.0 - 9.0 [facility] Protein (U) [Mass/Vol] Negative NEGATIVE mg/dl [facility] RBC LM.HPF (Urine sed) [#/Area] NONE SEEN 0-2/hpf /hpf [facility] Specific [place], UA 1.007 1.002 - 1.030 [facility] Urobilinogen, Urine 1.0 [facility] WBC LM.HPF (Urine sed) [#/Area] NONE SEEN 0-4/hpf /hpf [facility] Urine Drug Screenon 02-27-20 24 Amphetamines Screen Ql (U) Negative NEGATIVE [facility] Barbiturates Screen Ql (U) Negative NEGATIVE [facility] Benzodiazepines Ql (U) Negative NEGATIVE [facility] Benzoylecgonine Screen Ql (U) Negative NEGATIVE [facility] Cannabinoids Screen Ql (U) Positive NEGATIVE [facility] Fentanyl Negative NEGATIVE [facility] Comment on above: A Negative result for a drug abuse screen test indicates that the drug concentration is below the following cutoffs: Amphetamine/Methamphetamine 1000 ng/ml Barbiturate 200 ng/ml Benzodiazapine 200 ng/ml Cannabinoids 50 ng/ml Cocaine Metabolite 300 ng/ml Opiates 300 ng/ml Oxycodone 100 ng/ml Phencyclidine 25 ng/ml Fentanyl 5 ng/ml A Positive result for a drug abuse screen test should be considered presumptive positive until/unless confirmed by another method. (Additional request) Quantitative values from a reference laboratory are available upon additional request. These results are for medical use only. Performed at [facility] [address] [place] [address] Opiates Screen Ql (U) Negative NEGATIVE [facility] Oxycodone Negative NEGATIVE [facility] Phencyclidine Ql (U) Negative NEGATIVE [facility] VITAMIN D TOTAL 25 (OH)on VITAMIN D TOTAL 25 (OH) 32 ng/ml Normal 30-100 [facility] Comment on above: Result Comment: Lashanda min D Status Range Deficiency <20 ng/ml Insuffiency 20-30 ng/ml Sufficiency 30-100 ng/ml Toxicity >100 ng/ml Performed By: #### C VFLU #### [facility] [address] [place] [address] 06023 Vitamin D 25 Hydroxyon 02-26 25-hydroxyvitamin D3 [Mass/Vol] 32 ng/mL 30 - 100 ng/ml [facility] Comment on above: Vitamin D Status Ran ge Deficiency <20 ng/ml Insuffiency 20-30 ng/ml Sufficiency 30-100 ng/ml Toxicity >100 ng/ml Performed at [facility] [address] [place] [address] 30242 Basic Metabolic Profon 10-28 -2024 Anion gap [Moles/Vol] 15 mmol/L Normal 9-16 [facility] Comment on above: Performed By: #### T MARY CHEN, BMP #### [facility] [address] [place] [address] Legislative Assistant: Ramo Jesus MD BUN/CRE Ratio 11 Normal 9-20 [facility] Comment on above: Performed By: #### T MARY CHEN, BMP #### [facility] [address] [place], [place] [id number] Legislative Assistant: Ramo Jesus MD Calcium [Mass/Vol] 9.3 mg/dL Normal 8.6-10.4 [facility] Comment on above: Performed By: #### MARY RODAS, BMP #### [facility] [address] [place] [address] [address] [place], [place] 8957983 Legislative Assistant: Ramo Jesus MD Chloride [Moles/Vol] 97 mmol/L Low 98-107 [facility] Comment on above: Performed By: #### MARY RODAS, BMP #### [address] [place] [address] Legislative Assistant: Ramo Jesus MD CO2 [Moles/Vol] 23 mmol/L Normal 20-31 [facility] Comment on above: Performed By: #### MARY RODAS, BMP #### [facility] [address] [place], [place] [id number] Legislative Assistant: Ramo Jesus MD Creatinine [Mass/Vol] 1.2 mg/dL Normal 0.70-1.20 [facility] Comment on above: Performed By: #### MARY RODAS, BMP #### [facility] [address] [place] [address] Legislative Assistant: Ramo Jesus MD GFR/1.73 sq M.predicted among non-blacks MDRD (S/P/Bld) [Vol rate/Area] 80 mL/min/{1.73_m2} Normal >60 [facility] Comment on above: Result Comment: These [...] affects renal tubular secretion. Performed By: #### T MARY CHEN, BMP #### [facility] [address] [place] [address] Legislative Assistant: Ramo Jesus MD Glucose [Mass/Vol] 100 mg/dL High 74-99 [facility] Comment on above: Performed By: #### MARY RODAS, BMP #### [address] [place], [place] 3902483 Legislative Assistant: Ramo Jesus MD Potassium [Moles/Vol] 3.3 mmol/L Low 3.7-5.3 [facility] Comment on above: Performed By: #### MARY RODAS, BMP #### [address] [place], [place] 7106483 Legislative Assistant: Ramo Jesus MD Sodium [Moles/Vol] 135 mmol/L Low 136-145 [facility] Comment on above: Performed By: #### MARY RODAS, BMP #### [facility] [address] [place], [place] [id number] Legislative Assistant: Ramo Jesus MD Urea nitrogen [Mass/Vol] 13 mg/dL Normal 6-20 [facility] Comment on above: Performed By: #### MARY RODAS, BMP #### [facility] [address] [place] [address] Legislative Assistant: Ramo Jesus MD C-Reactive Proteinon 10-28-2 024 CRP [Mass/Vol] 81.9 mg/L High 0.0-5.0 [facility] Comment on above: Performed By: #### S ED, CRP #### [facility] [address] [place] [address] Legislative Assistant: Ramo Jesus MD CBC with Diffon 02-26-2024 Abs. Basophil 0.04 k/uL Normal 0.0-0.2 [facility] Comment on above: Performed By: #### T MARY CHEN, BMP #### [facility] [address] [place] [address] Legislative Assistant: Ramo Jesus MD Abs.Imm.Granulocyte 0.04 k/uL Normal 0.00-0.30 [facility] Comment on above: Performed By: #### MARY RODAS, BMP #### [address] [place] [id number] Legislative Assistant: Ramo Jesus MD Abs.Neutrophil (Seg) 2.58 k/uL Normal 1.50-8.10 [facility] Comment on above: Performed By: #### MARY RODAS, BMP #### [address] [place] [address] Legislative Assistant: Ramo Jesus MD Basophils/100 WBC (Bld) 1 % Normal 0-2 [facility] Comment on above: Performed By: #### MARY RODAS, BMP #### [address] [place] [address] Legislative Assistant: Ramo Jesus MD Eosinophils (Bld) [#/Vol] 0.08 10*3/uL Normal 0.00-0.44 [facility] Comment on above: Performed By: #### T MARY CHEN, BMP #### [address] [place], [place] 609[address]83 Legislative Assistant: Ramo Jesus MD Eosinophils/100 WBC (Bld) 2 % Normal 1-4 [facility] Comment on above: Performed By: #### T MARY CHEN, BMP #### [facility] [address] [place], [place] [id number] Legislative Assistant: Ramo Jesus MD Immature granulocytes/100 WBC (Bld) 1 % High 0 [facility] Comment on above: Performed By: #### T MARY CHEN, BMP #### [facility] [address] [place], [place] [address] Legislative Assistant: Ramo Jesus MD Lymphocytes (Bld) [#/Vol] 1.03 10*3/uL Low 1.10-3.70 [facility] Comment on above: Performed By: #### T MARY CHEN, BMP #### [address] [place], [facility]83 Legislative Assistant: Ramo Jesus MD Lymphocytes/100 WBC (Bld) 25 % Normal 24-43 [facility] Comment on above: Performed By: #### T MARY CHEN, BMP #### [address] [place], [facility]83 Legislative Assistant: Ramo Jesus MD Monocytes (Bld) [#/Vol] 0.33 10*3/uL Normal 0.10-1.20 [facility] Comment on above: Performed By: #### MARY RODAS, BMP #### [address] [place], [facility]83 Legislative Assistant: Ramo Jesus MD Monocytes/100 WBC (Bld) 8 % Normal 3-12 [facility] Comment on above: Performed By: #### T MARY CHEN, BMP #### [address] [place], [facility]83 Legislative Assistant: Ramo Jesus MD Morphology Gianni (Bld) [Interp] Normal Normal [facility] Comment on above: Performed By: #### T MARY CHEN, BMP #### [facility] [address] [place], [place] [id number] Legislative Assistant: Ramo Jesus MD Neutrophil (Seg) 63 % Normal 36-65 [facility] Comment on above: Performed By: #### T MARY CHEN, BMP #### [facility] [address] [place] [address] Legislative Assistant: Ramo Jesus MD Platelet, Fluoresc. 117 k/uL Low 138-453 [facility] Comment on above: Performed By: #### T MARY CHEN, BMP #### [facility] [address] [place] [address] Legislative Assistant: Ramo Jesus MD PLT, Immature Fract. 3.6 % Normal 1.1-10.3 [facility] Comment on above: Performed By: #### T MARY CHEN, BMP #### [address] [place], [place] [id number] Legislative Assistant: Ramo Jesus MD Erythrocyte distribution width (RBC) [Ratio] 12.0 % Normal 11.8-14.4 [facility] Comment on above: Performed By: #### T MARY CHEN, BMP #### [address] [place], [place] [id number] Legislative Assistant: Ramo Jesus MD Hematocrit (Bld) [Volume fraction] 41.0 % Normal 40.7-50.3 [facility] Comment on above: Performed By: #### T MARY CHEN, BMP #### [address] [place], [place] [id number] Legislative Assistant: Ramo Jesus MD Hemoglobin (Bld) [Mass/Vol] 14.7 g/dL Normal 13.0-17.0 [facility] Comment on above: Performed By: #### T MARY CHEN, BMP #### [address] [place], [place] [id number] Legislative Assistant: Ramo Jesus MD MCH (RBC) [Entitic mass] 31.1 pg Normal 25.2-33.5 [facility] Comment on above: Performed By: #### MARY RODAS, BMP #### [facility] [address] [place], [place] [id number] Legislative Assistant: Ramo Jesus MD MCHC (RBC) [Mass/Vol] 35.9 g/dL High 28.4-34.8 [facility] Comment on above: Performed By: #### MARY RODAS, BMP #### [facility] [address] [place], [place] [id number] Legislative Assistant: Ramo Jesus MD MCV (RBC) [Entitic vol] 86.9 fL Normal 82.6-102.9 [facility] Comment on above: Performed By: #### MARY RODAS, BMP #### [address] [place], [facility]83 Legislative Assistant: Ramo Jesus MD NRBC Automated 0.0 per 100 WBC Normal 0.0 [facility] Comment on above: Performed By: #### MARY RODAS, BMP #### [address] [place], [place] [id number] Legislative Assistant: Ramo Jesus MD Platelet Count See Reflexed IPF Result Normal 138-453 [facility] Comment on above: Performed By: #### MARY RODAS, BMP #### [facility] [address] [place], [place] [id number] Legislative Assistant: Ramo Jesus MD RBC (Bld) [#/Vol] 4.72 10*6/uL Normal 4.21-5.77 [facility] Comment on above: Performed By: #### MARY RODAS, BMP #### [facility] [address] [place] [address] Legislative Assistant: Ramo Jesus MD WBC (Bld) [#/Vol] 4.1 10*3/uL Normal 3.5-11.3 [facility] Comment on above: Performed By: #### T MARY CHEN, BMP #### [facility] [address] [place] [address] Legislative Assistant: Ramo Jesus MD CT HEAD WO CONTRASTon 2023 CT HEAD WO CONTRAST EXAMINATION: CTA OF THE HEAD AND NECK WITH CONTRAST; CT OF THE HEAD WITHOUT CONTRAST 02/26/2024 5:37 pm; 02/26/2024 5:35 pm: TECHNIQUE: CTA of the head and neck was performed with the administration of intravenous contrast. Multiplanar reformatted images are provided for review. MIP images are provided for review. Stenosis of the internal carotid arteries measured using NASCET criteria. Automated exposure control, iterative reconstruction, and/or weight based adjustment of the mA/kV was utilized to reduce the radiation dose to as low as reasonably achievable.; CT of the head was performed without the administration of intravenous contrast. Automated exposure control, iterative reconstruction, and/or weight based adjustment of the mA/kV was utilized to reduce the radiation dose to as low as reasonably achievable. Noncontrast CT of the head with reconstructed 2-D images are also provided for review. COMPARISON: None. HISTORY: ORDERING SYSTEM PROVIDED HISTORY: headache FINDINGS: CT HEAD: BRAIN/VENTRICLES: No acute intracranial hemorrhage or extraaxial fluid collection. Perea-white differentiation is maintained. No evidence of mass, mass effect or midline shift. No evidence of hydrocephalus. ORBITS: The visualized portion of the orbits demonstrate no acute abnormality. SINUSES: The visualized paranasal sinuses and mastoid air cells demonstrate no acute abnormality. SOFT TISSUES/SKULL: No acute abnormality of the visualized skull or soft tissues. CTA NECK: AORTIC ARCH/ARCH VESSELS: No dissection or arterial injury. No significant stenosis of the brachiocephalic or subclavian arteries. CAROTID ARTERIES: No dissection, arterial injury, or hemodynamically significant stenosis by NASCET criteria. VERTEBRAL ARTERIES: No dissection, arterial injury, or significant stenosis. SOFT TISSUES: The lung apices are clear. No cervical or superior mediastinal lymphadenopathy. The larynx and pharynx are unremarkable. No acute abnormality of the salivary and thyroid glands. BONES: No acute osseous abnormality. CTA HEAD: ANTERIOR CIRCULATION: No significant stenosis of the intracranial internal carotid, anterior cerebral, or middle cerebral arteries. No aneurysm. POSTERIOR CIRCULATION: No significant stenosis of the vertebral, basilar, or posterior cerebral arteries. No aneurysm. OTHER: No dural venous sinus thrombosis on this non-dedicated study. IMPRESSION: 1. No acute intracranial abnormality. 2. No apparent arterial high grade stenosis, occlusion or aneurysm within the head or neck. Interpreted by: Sam Rockwell DO Signed by: Sam Rockwell DO 02/26/24 Final result Normal [facility] CTA HEAD NECK W CONTRASTon 1 CTA HEAD NECK W CONTRAST EXAMINATION: CTA OF THE HEAD AND NECK WITH CONTRAST; CT OF THE HEAD WITHOUT CONTRAST 02/26/2024 5:37 pm; 02/26/2024 5:35 pm: TECHNIQUE: CTA of the head and neck was performed with the administration of intravenous contrast. Multiplanar reformatted images are provided for review. MIP images are provided for review. Stenosis of the internal carotid arteries measured using NASCET criteria. Automated exposure control, iterative reconstruction, and/or weight based adjustment of the mA/kV was utilized to reduce the radiation dose to as low as reasonably achievable.; CT of the head was performed without the administration of intravenous contrast. Automated exposure control, iterative reconstruction, and/or weight based adjustment of the mA/kV was utilized to reduce the radiation dose to as low as reasonably achievable. Noncontrast CT of the head with reconstructed 2-D images are also provided for review. COMPARISON: None. HISTORY: ORDERING SYSTEM PROVIDED HISTORY: headache FINDINGS: CT HEAD: BRAIN/VENTRICLES: No acute intracranial hemorrhage or extraaxial fluid collection. Perea-white differentiation is maintained. No evidence of mass, mass effect or midline shift. No evidence of hydrocephalus. ORBITS: The visualized portion of the orbits demonstrate no acute abnormality. SINUSES: The visualized paranasal sinuses and mastoid air cells demonstrate no acute abnormality. SOFT TISSUES/SKULL: No acute abnormality of the visualized skull or soft tissues. CTA NECK: AORTIC ARCH/ARCH VESSELS: No dissection or arterial injury. No significant stenosis of the brachiocephalic or subclavian arteries. CAROTID ARTERIES: No dissection, arterial injury, or hemodynamically significant stenosis by NASCET criteria. VERTEBRAL ARTERIES: No dissection, arterial injury, or significant stenosis. SOFT TISSUES: The lung apices are clear. No cervical or superior mediastinal lymphadenopathy. The larynx and pharynx are unremarkable. No acute abnormality of the salivary and thyroid glands. BONES: No acute osseous abnormality. CTA HEAD: ANTERIOR CIRCULATION: No significant stenosis of the intracranial internal carotid, anterior cerebral, or middle cerebral arteries. No aneurysm. POSTERIOR CIRCULATION: No significant stenosis of the vertebral, basilar, or posterior cerebral arteries. No aneurysm. OTHER: No dural venous sinus thrombosis on this non-dedicated study. IMPRESSION: 1. No acute intracranial abnormality. 2. No apparent arterial high grade stenosis, occlusion or aneurysm within the head or neck. Interpreted by: Sam Rockwell DO Signed by: Sam Rockwell DO 02/26/24 Final result Normal [facility] Glucose, Whole Bloodon 02-25 Glucose [Mass/Vol] 105 mg/dL High 74-100 [facility] Liver Profileon 02-26-2024 Albumin [Mass/Vol] 4.1 g/dL Normal 3.5-5.2 [facility] Comment on above: Performed By: #### L IVP ####[address] [place] [address] Lab Director: Ramo Jesus MD Albumin/Glob Ratio 1.3 Normal 1.0-2.5 [facility] Comment on above: Performed By: #### L IVP ####[address] , [place] [id number] Lab Director: Ramo Jesus MD Alkaline Phos 97 U/L Normal 40-129 [facility] Comment on above: Performed By: #### L IVP ####[address] , [place] [id number] Lab Director: Ramo Jesus MD ALT [Catalytic activity/Vol] 45 U/L Normal 10-50 [facility] Comment on above: Performed By: #### L IVP ####[address] [place] [address] Lab Director: Ramo Jesus MD AST [Catalytic activity/Vol] 54 U/L High 10-50 [facility] Comment on above: Performed By: #### L IVP ####[address] , [place] [id number] Lab Director: Ramo Jesus MD Bilirubin [Mass/Vol] 1.1 mg/dL Normal 0.00-1.20 [facility] Comment on above: Performed By: #### L IVP ####[address] , [place] [id number] Lab Director: Ramo Jesus MD Bilirubin, Indirect 0.6 mg/dL Normal 0.0-1.0 [facility] Comment on above: Performed By: #### L IVP ####[address] , [place] 6[address] Lab Director: Ramo Jesus MD Bilirubin.indirect [Mass/Vol] 0.5 mg/dL High 0.00-0.30 [facility] Comment on above: Performed By: #### L IVP ####[address] , [place] [id number] Lab Director: Ramo Jesus MD Protein [Mass/Vol] 7.2 g/dL Normal 6.6-8.7 [facility] Comment on above: Performed By: #### L IVP ####[address] , [place] [id number] Lab Director: Ramo Jesus MD Prolactinon 02-26-2024 Prolactin 4.70 ng/mL Normal 4.04-15.2 [facility] Comment on above: Result Comment: The presence of macroprolactin may cause interference in female patients with various endocrinological diseases or during . Performed By: #### P ROL #### [facility] [address] [place] [address] Legislative Assistant: Ra Kilpatrick MD Sedimentation Rateon 024 Sedimentation Rate 17 mm/Hr High 0-15 [facility] Comment on above: Performed By: #### S ED, CRP #### [facility] [address] [place], [place] [id number] Legislative Assistant: Ramo Jesus MD Troponinon 02-26-2024 Troponin, High Sens 9 ng/L Normal 0-22 [facility] Comment on above: Result Comment: High Sensitivity Troponin values cannot be compared with other Troponin methodologies. Performed By: #### T ROPI, CDP, BMP #### [facility] [address] [place], [place] [id number] Legislative Assistant: Ramo Jesus MD UA w/Reflex Cultureon 2023 Bilirubin, SemiQt,Ur Negative Normal NEG [facility] Comment on above: Performed By: #### U AX, UMICAO #### [facility] [address] [place] [address] [address] [place], [place] [id number] Legislative Assistant: Ramo Jesus MD Blood, Urine Negative Normal NEG [facility] Comment on above: Performed By: #### U AX, UMICAO #### [facility] [address] [place], [place] [id number] Legislative Assistant: Ramo Jesus MD Clarity (U) Clear Normal CLEAR [facility] Comment on above: Performed By: #### U AX, UMICAO #### [facility] [address] [place] [address] [place] [address] Legislative Assistant: Ramo Jesus MD Color (U) Yellow Normal YEL [facility] Comment on above: Performed By: #### U AX, UMICAO #### [facility] [address] [place], [place] [id number] Legislative Assistant: Ramo Jesus MD Glucose Ql (U) Negative Normal NEG [facility] Comment on above: Performed By: #### U AX, UMICAO #### [facility] [address] [place], [place] [phone] Legislative Assistant: Ramo Jesus MD Ketones Ql (U) 2+ mg/dL Abnormal NEG [facility] in Hospital Comment on above: Performed By: #### U AX, UMICAO #### [facility] [address] [place] [address] [place] [address] Legislative Assistant: Ramo Jesus MD Leukocyte esterase Test strip Ql (U) Negative Normal NEG [facility] Comment on above: Performed By: #### U AX, UMICAO #### [facility] [address] [place] [address] Dr. [place], [facility]83 Legislative Assistant: Ramo Jesus MD Nitrite,Ur Negative Normal NEG [facility] Comment on above: Performed By: #### U AX, UMICAO #### [facility] [address] [place] [address] Dr. [place], [facility]83 Legislative Assistant: Ramo Jesus MD PH,Ur 6.0 Normal 5.0-9.0 [facility] Comment on above: Performed By: #### U AX, UMICAO #### [facility] [address] [place] [address] [place] [address] Legislative Assistant: Ramo Jesus MD Protein Ql (U) Negative Normal NEG [facility] in [facility] Comment on above: Performed By: #### U AX, UMICAO #### [facility] [address] [place] [address] [place] [address] Legislative Assistant: Ramo Jesus MD Spec. [place],Ur 1.010 Normal 1.010-1.020 [facility] Comment on above: Performed By: #### U AX, UMICAO #### [facility] [address] [place] [address] [address] [place], [place] [id number] Legislative Assistant: Ramo Jesus MD Urobilinogen,Ur Normal Normal 0.0-1.0 [facility] Comment on above: Performed By: #### U AX, UMICAO #### [facility] [address] [place], [place] [id number] Legislative Assistant: Ramo Jesus MD Urinalysis,Microon 4 Bacteria TRACE Abnormal NONE [facility] Comment on above: Performed By: #### U AX, UMICAO ####[address] , [place] [id number] Lab Director: Ramo Jesus MD Epithelial cells LM Ql (Urine sed) 0 TO 2 Normal 0-5 [facility] Comment on above: Performed By: #### U AX, UMICAO ####[address] [place] [address] Lab Director: Ramo Jesus MD Urine RBC's 0 TO 2 Normal 0-2 [facility] Comment on above: Performed By: #### U AX, UMICAO ####[address] [place] [address] Lab Director: Ramo Jesus MD Urine WBC's 0 TO 2 Normal 0-5 [facility] Comment on above: Performed By: #### U AX, UMICAO ####[address] , [place] [id number] Lab Director: Ramo Jesus MD XR CHEST PORTABLEon 02-26-20 XR CHEST PORTABLE EXAMINATION: ONE XRAY VIEW OF THE CHEST 02/26/2024 1:06 pm COMPARISON: None. HISTORY: ORDERING SYSTEM PROVIDED HISTORY: syncope TECHNOLOGIST PROVIDED HISTORY: syncope 33-year-old male with syncope FINDINGS: AP portable view of the chest hospital monitor leads overlie the chest Trachea midline. No pneumothorax. No acute focal airspace consolidation or pleural effusions. Cardiac and mediastinal contours within normal limits. No acute osseous abnormality. IMPRESSION: No acute focal airspace consolidation or effusions. Interpreted by: Rubio Suarez MD Signed by: Rubio Suarez MD 02/26/24 Final result Normal [facility] OPERATIVE REPORTon 3 OPERATIVE REPORT [address] [id number] OPERATIVE REPORT PATIENT NAME: ETHAN DONALD : 1990 MED REC NO: [id number] ROOM: ACCOUNT NO: [id number] ADMIT DATE: 03/13/2023 PROVIDER: Jon Reynoso DATE OF PROCEDURE: 03/13/2023 PREOPERATIVE DIAGNOSES: 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 POSTOPERATIVE DIAGNOSES: 1. Subluxing patella. 2. Chondromalacia. 3. [place]-Schlatter disease. PROCEDURES PERFORMED: Arthroscopy of right knee with: 1. Chondroplasty. 2. Lateral release. 3. Mini arthrotomy with excision of [place]-Schlatter ossicle. SURGEON: Dr. Jon Reynoso. ANESTHESIA: General. [...] tendon was then split longitudinally and the [place]--Schlatter ossicle was removed from the tendon. X-ray was obtained to verify that all the [place]--Schlatter ossicle had been removed. The tendon was then oversewn with 2-0 Vicryl interrupted [id number] sutures. Skin margins were injected with 0.5% [...] in two weeks. JON REYNOSO [id number] Doc#: [id number] CC: Normal [facility] XR KNEE RIGHT (1-2 VIEWS)on 03-13-2023 XR KNEE RIGHT (1-2 VIEWS) EXAMINATION: TWO [...] Alfonso Charles MD 03/13/23 Final result Normal [facility] GROUP A STREP CULTUREon 07-30 S. pyogenes Ag Ql (Unsp spec) Culture Observations: NEGATIVE FOR GROUP A STREPTOCOCCUS. Normal [facility] Comment on above: Performed By: #### S SCRN, GRASTCX #### [facility] [address] [place] [address] Dr. Praitbha Stevenson STREPT SCREENon 08-11-2022 STREP SCREEN A Negative Normal NEGATIVE [facility] Comment on above: Performed By: #### S SCRN, GRASTCX #### [facility] [address] [place] [address] Dr. Pratibha Stevenson AMYLASEon 07-23-2022 Amylase [Catalytic activity/Vol] 50 U/L Normal 25-115 [facility] Comment on above: Performed By: #### E RUR #### [facility] [address] [place] [address] Dr. Pratibha Stevenson CBC AUTO DIFFon 07-23-2022 BASO # 0.1 103/ul Normal 0.0-0.1 [facility] Comment on above: Performed By: #### L ACT #### [facility] [address] [place] [address] Dr. Pratibha Stevenson Basophils/100 WBC (Bld) 1.0 % Normal 0.2-2.0 [facility] Comment on above: Performed By: #### L ACT #### [facility] [address] [place] [address] Dr. Pratibha Stevenson EO # 0.1 103/ul Normal 0.0-0.7 [facility] Comment on above: Performed By: #### L ACT #### [facility] [address] [place] [address] Dr. Pratibha Stevenson Eosinophils/100 WBC (Bld) 1.7 % Normal 0.9-7.0 [facility] Comment on above: Performed By: #### L ACT #### [facility] [address] [place] [address] Dr. Pratibha Stevenson Erythrocyte distribution width (RBC) [Ratio] 12.1 % Normal 11.0-15.0 [facility] Comment on above: Performed By: #### L ACT #### [facility] [address] [place] [address] Dr. Pratibha Stevenson Hematocrit (Bld) [Volume fraction] 45.9 % Normal 42.0-54.0 [facility] Comment on above: Performed By: #### L ACT #### [facility] [address] [place] [address] Dr. Pratibha Stevenson Hemoglobin (Bld) [Mass/Vol] 15.6 g/dL Normal 14.0-18.0 [facility] Comment on above: Performed By: #### L ACT #### [facility] [address] [place] [address] Dr. Pratibha Stevenson IG # 0.01 10e3/ul Normal 0.00-0.03 [facility] Comment on above: Performed By: #### L ACT #### [facility] [address] [place] [address] Dr. Pratibha Stevenson IG % 0.1 % Normal 0.0-0.5 [facility] Comment on above: Performed By: #### L ACT #### [facility] [address] [place] [address] Dr. Pratibha Stevenson LYMPH # 2.0 103/ul Normal 1.2-3.8 [facility] Comment on above: Performed By: #### L ACT #### [facility] [address] [place] [address] Dr. Pratibha Stevenson Lymphocytes/100 WBC (Bld) 28.8 % Normal 20.5-60.0 [facility] Comment on above: Performed By: #### L ACT #### [facility] [address] [place] [address] Dr. Pratibha Stevenson MANUAL DIFF REQ NO Normal [facility] Comment on above: Performed By: #### L ACT #### [facility] [address] [place] [address] Dr. Pratibha Stevenson MCH (RBC) [Entitic mass] 31.3 pg Normal 25.9-34.0 [facility] Comment on above: Performed By: #### L ACT #### [facility] [address] [address] [address] Pratibha Stevenson MCHC (RBC) [Mass/Vol] 34.0 g/dL Normal 29.9-35.2 [facility] Comment on above: Performed By: #### L ACT #### [facility] [address] [address] [address] Pratibha Stevenson MCV (RBC) [Entitic vol] 92.2 fL Normal 80.0-94.0 [facility] Comment on above: Performed By: #### L ACT #### [facility] [address] [place] [address] Dr. Pratibha Stevenson MONO # 0.3 103/ul Normal 0.3-0.8 [facility] Comment on above: Performed By: #### L ACT #### [facility] [address] [address] [address] Pratibha Stevenson Monocytes/100 WBC (Bld) 4.3 % Normal 1.7-12.0 [facility] Comment on above: Performed By: #### L ACT #### [facility] [address] [address] [address] Pratibha Stevenson NEUT # 4.5 103/ul Normal 1.4-6.5 [facility] Comment on above: Performed By: #### L ACT #### [facility] [address] [address] [address] Pratibha Stevenson Neutrophils/100 WBC (Bld) 64.1 % Normal 43.0-75.0 [facility] Comment on above: Performed By: #### L ACT #### [facility] [address] [address] [address] Pratibha Stevenson Platelet mean volume (Bld) [Entitic vol] 10.3 fL Normal 9.5-13.5 [facility] Comment on above: Performed By: #### L ACT #### [facility] [address] [place], [place] [address] Dr. Pratibha Stevenson PLT 219 103/ul Normal 150-450 [facility] Comment on above: Performed By: #### L ACT #### [facility] [address] [place], [place] [address] Dr. Pratibha Stevenson RBC 4.98 106/ul Normal 4.70-6.10 [facility] Comment on above: Performed By: #### L ACT #### [facility] [address] [place], [place] [address] Dr. Pratibha Stevenson WBC 7.1 103/ul Normal 4.0-11.0 [facility] Comment on above: Performed By: #### L ACT #### [facility] [id number] Pratibha Stevenson CT ABD/PELV W CONon [...] YING WALTON Date: 2022-07-22 23:53 Normal [facility] DRUG SCREEN RAPID (URINE)on 07-23-2022 AMP Negative Normal NEGATIVE [facility] Comment on above: Performed By: #### E RUR #### [facility] [address] [place] [address] Dr. Pratibha Stevenson BAR Negative Normal NEGATIVE [facility] Comment on above: Performed By: #### E RUR #### [facility] [address] [address] [address] Pratibha Stevenson BUP Negative Normal NEGATIVE [facility] Comment on above: Performed By: #### E RUR #### [facility] [address] [place] [address] Dr. Pratibha Stevenson BZO Negative Normal NEGATIVE [facility] Comment on above: Performed By: #### E RUR #### [facility] [address] [place] [address] Dr. Pratibha Stevenson EMELY Negative Normal NEGATIVE [facility] Comment on above: Performed By: #### E RUR #### [facility] [address] [address] [address] Pratibha Stevenson CUT-OFFS SEE BELOW Normal [facility] Comment on above: Result Comment: AMP (Amphetamine): 500ng/mL, BAR (Barbituates): 200 ng/mL, BZO (Benzodiazepines): 150 ng/mL, BUP (Buprenorphine): 10 ng/mL, EMELY (Cocaine): 150 ng/mL, mAMP (Methamphetamine): 500 ng/mL, MTD (Methadone): 200 ng/mL, OPI (Opiates): 100 ng/mL, OXY (Oxycodone): 100 ng/mL, PCP (Phencyclidine): 25 ng/mL, PPX (Propoxyphene): 300 ng/mL, THC (Cannabinoids): 50 ng/mL, TCA (Trycyclic Antidepressants): 300 ng/mL Performed By: #### E RUR #### [facility] [address] [place] [address] Dr. Pratibha Stevenson DRUG CUT HEADER DRUG CLASS TEST SYST EM CUT-OFF CONCENTRATIONS ARE FOLLOWS: Normal [facility] Comment on above: Performed By: #### E RUR #### [facility] [address] [place] [address] Dr. Pratibha Stevenson mAMP Negative Normal NEGATIVE [facility] Comment on above: Performed By: #### E RUR #### [facility] [address] [place] [address] Dr. Pratibha Stevenson MTD Negative Normal NEGATIVE [facility] Comment on above: Performed By: #### E RUR #### [facility] [address] [place] [address] Dr. Pratibha Stevenson OPI Positive Abnormal NEGATIVE [facility] Comment on above: Performed By: #### E RUR #### [facility] [address] [place] [address] Dr. Pratibha Stevenson OXY Negative Normal NEGATIVE [facility] Comment on above: Performed By: #### E RUR #### [facility] [address] [place] [address] Dr. Pratibha Stevenson PCP Negative Normal NEGATIVE [facility] Comment on above: Performed By: #### E RUR #### [facility] [address] [place] [address] Dr. Pratibha Stevenson PPX Negative Normal NEGATIVE [facility] Comment on above: Performed By: #### E RUR #### [facility] [address] [place] [address] Dr. Pratibha Stevenson TCA Positive Abnormal NEGATIVE [facility] Comment on above: Performed By: #### E RUR #### [facility] [address] [place] [address] Dr. Pratibha Stevenson THC Positive Abnormal NEGATIVE [facility] Comment on above: Performed By: #### E RUR #### [facility] [address] [place] [address] Dr. Pratibha Stevenson ER URINE PROFILEon 3 Bilirubin Ql (U) Negative Normal NEGATIVE [facility] Comment on above: Performed By: #### E RUR #### [facility] [address] [place] [address] Dr. Pratibha Stevenson Clarity (U) CLEAR Normal CLEAR [facility] Comment on above: Performed By: #### E RUR #### [facility] [address] [place] [address] Dr. Pratibha Stevenson Color (U) LT. YELLOW Normal YELLOW [facility] Comment on above: Performed By: #### E RUR #### [facility] [address] [place] [address] Dr. Pratibha Stevenson ERUAHD A micrscopic examination will be performed if indicated. Normal [facility] Comment on above: Performed By: #### E RUR #### [facility] [address] [place] [address] Dr. Pratibha Stevenson Glucose Ql (U) Negative Normal NEGATIVE [facility] Comment on above: Performed By: #### E RUR #### [facility] [address] [place] [address] Dr. Pratibha Stevenson Hemoglobin Ql (U) Negative Normal NEGATIVE [facility] Comment on above: Performed By: #### E RUR #### [facility] [address] [place] [address] Dr. Pratibha Stevenson Ketones Ql (U) Negative Normal NEGATIVE [facility] Comment on above: Performed By: #### E RUR #### [facility] [address] [place] [address] Dr. Pratibha Stevenson LEUKOCYTES Negative Normal NEGATIVE [facility] Comment on above: Performed By: #### E RUR #### [facility] [address] [place] [address] Dr. Pratibha Stevenson Nitrite Ql (U) Negative Normal NEGATIVE [facility] Comment on above: Performed By: #### E RUR #### [facility] [address] [place] [address] Dr. Pratibha Stevenson pH (U) 5.5 [pH] Normal 5-9 [facility] Comment on above: Performed By: #### E RUR #### [facility] [address] [place] [address] Dr. Pratibha Stevenson SPEC GRAVITY <=1.005 Abnormal 1.005-<=1.025 [facility] Comment on above: Performed By: #### E RUR #### [facility] [address] [place] [address] Dr. Pratibha Stevenson UA PROTEIN Negative Normal NEGATIVE/ TRACE [facility] Comment on above: Performed By: #### E RUR #### [facility] [address] [place] [address] Dr. Pratibha Stevenson UR MICRO IND NOT INDICATED Normal [facility] Comment on above: Performed By: #### E RUR #### [facility] [address] [place] [address] Dr. Pratibha Stevenson Urobilinogen Qn (U) 0.2 {Butch'U}/dL Normal 0.2 - 1. 0 [facility] Comment on above: Performed By: #### E RUR #### [facility] [address] [place] [address] Dr. Pratibha Stevenson LIPASEon 07-23-2022 Lipase [Catalytic activity/Vol] 126.0 U/L Normal 73.0-393.0 [facility] Comment on above: Performed By: #### E RUR #### [facility] [address] [place] [address] Dr. Pratibha Stevenson PROF 14(COMP METB)on 023 Albumin [Mass/Vol] 4.2 g/dL Normal 3.4-5.0 [facility] Comment on above: Performed By: #### E RUR #### [facility] [address] [place] [address] Dr. Pratibha Stevenson Albumin/Globulin [Mass ratio] 1.4 {ratio} Normal [facility] Comment on above: Performed By: #### E RUR #### [facility] [address] [place] [address] Dr. Pratibha Stevenson ALP [Catalytic activity/Vol] 87 U/L Normal 46-116 [facility] Comment on above: Performed By: #### E RUR #### [facility] [address] [place] [address] Dr. Pratibha Stevenson ALT [Catalytic activity/Vol] 20 U/L Normal 16-63 [facility] Comment on above: Performed By: #### E RUR #### [facility] [address] [address] [address] Pratibha Stevenson Anion gap [Moles/Vol] 12.8 mmol/L Normal [facility] Comment on above: Performed By: #### E RUR #### [facility] [address] [address] [address] Pratibha Stevenson AST [Catalytic activity/Vol] 18 U/L Normal 15-37 [facility] Comment on above: Performed By: #### E RUR #### [facility] [address] [address] [address] Pratibha Stevenson Bilirubin [Mass/Vol] 0.5 mg/dL Normal 0.2-1.0 [facility] Comment on above: Performed By: #### E RUR #### [facility] [address] [place] [address] Dr. Pratibha Stevenson Calcium [Mass/Vol] 9.2 mg/dL Normal 8.5-10.1 [facility] Comment on above: Performed By: #### E RUR #### [facility] [address] [address] [address] Pratibha Stevenson Chloride [Moles/Vol] 101 mmol/L Normal 98-107 [facility] Comment on above: Performed By: #### E RUR #### [facility] [address] [address] [address] Pratibha Stevenson CO2 [Moles/Vol] 24.7 mmol/L Normal 21.0-32.0 [facility] Comment on above: Performed By: #### E RUR #### [facility] [address] [address] [address] Pratibha Stevenson Creatinine [Mass/Vol] 1.20 mg/dL Normal 0.70-1.30 [facility] Comment on above: Performed By: #### E RUR #### [facility] [address] [address] [address] Pratibha Stevenson EGFR-AF FRENCH >60 Normal >=60 [facility] Comment on above: Performed By: #### E RUR #### [facility] [address] [address] [address] Pratibha Stevenson EGFR-NON AF FRENCH >60 Normal >=60 [facility] Comment on above: Performed By: #### E RUR #### [facility] [address] [address] [address] Pratibha Stevenson Globulin (S) [Mass/Vol] 3.1 g/dL Normal [facility] Comment on above: Performed By: #### E RUR #### [facility] [address] [address] [address] Pratibha Stevenson Glucose [Mass/Vol] 128 mg/dL Critically high 74-106 [facility] Comment on above: Performed By: #### E RUR #### [facility] [address] [address] [address] Pratibha Stevenson Potassium [Moles/Vol] 3.5 mmol/L Normal 3.5-5.1 [facility] Comment on above: Performed By: #### E RUR #### [facility] [address] [address] [address] Pratibha Stevenson Protein [Mass/Vol] 7.3 g/dL Normal 6.4-8.2 [facility] Comment on above: Performed By: #### E RUR #### [facility] [address] [address] [address] Pratibha Stevenson Sodium [Moles/Vol] 135 mmol/L Critically low 136-145 [facility] Comment on above: Performed By: #### E RUR #### [facility] [address] [address] [address] Pratibha Stevenson Urea nitrogen [Mass/Vol] 10.0 mg/dL Normal 7.0-18.0 [facility] Comment on above: Performed By: #### E RUR #### [facility] [address] [address] [address] Pratibha Stevenson Urea nitrogen/Creatinine [Mass ratio] 8.3 mg/mg Normal [facility] Comment on above: Performed By: #### E RUR #### [facility] [address] [address] [address] Pratibha Stevenson Screenson 07-22-2022 Screens [id number]. 00CD:127 Normal [facility] Screens [id number]#1. 00CD:127 Normal [facility] Patient Educationon 07-22-19 Patient Education [...] Rhubarb. ? Beets. ? Potato chips and uzbek fries. ? Nuts. ? If you regularly take a diuretic medicine, make sure to eat at least 1?2 fruits or vegetables high in potassium each day. These include: ? Avocado. ? Banana. ? Rose, prune, carrot, or tomato juice. ? Baked [...] dr (more content not included)... Normal [facility] Urology Office/Clinic Noteon 07-21-2022 Urology Office/Clinic Note Chief Complaint pt here for a hospital f/u for kidney stones HPI Staff Pt is a 31 yr old Male here today for a hospital f/u from [facility] for a kidney stone. CT scan done 07/20/22 shows Bilateral nonobstructive renal calculi. No hydronephrosis or hydroureter hepatomegaly. Pts previous DX: kidney stone, ureteral stone. IPSS 26. Pt states he started feeling pain on Monday in the right upper back area and presented to the ER on Monday. Pt had CT scans done at [facility]. Pt states the pain is now moving [...] of urinary calculi) Urology consult 05/08/22 at [facility] due to 4-5 mm Ureteral Stone S/P Lt Ureteroscopy, Laser Litho (dusting), Lt stent placement 05/08/22 - Extensive Brenden's plaques noted Cysto/Lt stent removal 05/23/22. No hydro on f/u renal US. No passage of fragments noted. Follow-up With When Contact Information Handy WILEY, Shirley Menchaca, URL, URO Additional Instructions: Patient Education Dietary Guidelines to Help Prevent Kidney Stones Shalini Lubin, personally scribed for Dr. Murrell on 07/21/2022 [...] calculus (05/08/2022) (more content not included)... Normal [facility] Comment on above: Result Comment: Elec tronically Signed By: Shirley Murrell MD\.br\Date and Time Signed: 07/21/22 16:55 EDT\.br\Electronically Co-Signed By: Shalini Macias\.br\Date and Time Co-Signed: 07/21/22 09:40 EDT CBC AUTO DIFFon 07-20-2022 BASO # 0.1 103/ul Normal 0.0-0.1 [facility] Comment on above: Performed By: #### C BC #### [facility] [address] [place] [address] Dr. Pratibha Stevenson Basophils/100 WBC (Bld) 0.7 % Normal 0.2-2.0 [facility] Comment on above: Performed By: #### C BC #### [facility] [address] [place] [address] Dr. Pratibha Stevenson EO # 0.2 103/ul Normal 0.0-0.7 [facility] Comment on above: Performed By: #### C BC #### [facility] [address] [place] [address] Dr. Pratibha Stevenson Eosinophils/100 WBC (Bld) 2.4 % Normal 0.9-7.0 [facility] Comment on above: Performed By: #### C BC #### [facility] [address] [place] [address] Dr. Pratibha Stevenson Erythrocyte distribution width (RBC) [Ratio] 12.4 % Normal 11.0-15.0 [facility] Comment on above: Performed By: #### C BC #### [facility] [address] [place] [address] Dr. Pratibha Stevenson Hematocrit (Bld) [Volume fraction] 45.8 % Normal 42.0-54.0 [facility] Comment on above: Performed By: #### C BC #### [facility] [address] [place] [address] Dr. Pratibha Stevenson Hemoglobin (Bld) [Mass/Vol] 15.6 g/dL Normal 14.0-18.0 [facility] Comment on above: Performed By: #### C BC #### [facility] [address] [place] [address] Dr. Pratibha Stevenson IG # 0.03 10e3/ul Normal 0.00-0.03 [facility] Comment on above: Performed By: #### C BC #### [facility] [address] [place] [address] Dr. Pratibha Stevenson IG % 0.4 % Normal 0.0-0.5 [facility] Comment on above: Performed By: #### C BC #### [facility] [address] [place] [address] Dr. Pratibha Stevenson LYMPH # 3.0 103/ul Normal 1.2-3.8 [facility] Comment on above: Performed By: #### C BC #### [facility] [address] [place] [address] Dr. Pratibha Stevenson Lymphocytes/100 WBC (Bld) 34.7 % Normal 20.5-60.0 [facility] Comment on above: Performed By: #### C BC #### [facility] [address] [place] [address] Dr. Pratibha Stevenson MANUAL DIFF REQ NO Normal [facility] Comment on above: Performed By: #### C BC #### [facility] [address] [place] [address] Dr. Pratibha Stevenson MCH (RBC) [Entitic mass] 31.3 pg Normal 25.9-34.0 [facility] Comment on above: Performed By: #### C BC #### [facility] [address] [place] [address] Dr. Pratibha Stevenson MCHC (RBC) [Mass/Vol] 34.1 g/dL Normal 29.9-35.2 [facility] Comment on above: Performed By: #### C BC #### [facility] [address] [place] [address] Dr. Pratibha Stevenson MCV (RBC) [Entitic vol] 92.0 fL Normal 80.0-94.0 [facility] Comment on above: Performed By: #### C BC #### [facility] [address] [place] [address] Dr. Pratibha Stevenson MONO # 0.5 103/ul Normal 0.3-0.8 [facility] Comment on above: Performed By: #### C BC #### [facility] [address] [place] [address] Dr. Pratibha Stevenson Monocytes/100 WBC (Bld) 5.9 % Normal 1.7-12.0 [facility] Comment on above: Performed By: #### C BC #### [facility] [address] [place] [address] Dr. Pratibha Stevenson NEUT # 4.8 103/ul Normal 1.4-6.5 [facility] Comment on above: Performed By: #### C BC #### [facility] [address] [place] [address] Dr. Pratibha Stevenson Neutrophils/100 WBC (Bld) 55.9 % Normal 43.0-75.0 [facility] Comment on above: Performed By: #### C BC #### [facility] [address] [place] [address] Dr. Pratibha Stevenson Platelet mean volume (Bld) [Entitic vol] 10.0 fL Normal 9.5-13.5 [facility] Comment on above: Performed By: #### C BC #### [facility] [address] [place] [address] Dr. Pratibha Stevenson PLT 243 103/ul Normal 150-450 [facility] Comment on above: Performed By: #### C BC #### [facility] [address] [place] [address] Dr. Pratibha Stevenson RBC 4.98 106/ul Normal 4.70-6.10 [facility] Comment on above: Performed By: #### C BC #### [facility] [address] [place] [address] Dr. Pratibha Stevenson WBC 8.5 103/ul Normal 4.0-11.0 [facility] Comment on above: Performed By: #### C BC #### [facility] [address] [place] [address] ABD/PELVIS WO CONon [...] ROSALINO VIDALES Date: 2022-07-20 04:12 Normal [facility] ER URINE PROFILEon 3 Bilirubin Ql (U) Negative Normal NEGATIVE [facility] Comment on above: Performed By: #### L ACT #### [facility] [address] [place] [address] Dr. Pratibha Stevenson Clarity (U) CLEAR Normal CLEAR [facility] Comment on above: Performed By: #### L ACT #### [facility] [address] [place] [address] Dr. Pratibha Stevenson Color (U) LT. YELLOW Normal YELLOW [facility] Comment on above: Performed By: #### L ACT #### [facility] [address] [place] [address] Dr. Pratibha Stevenson ERUAHRanjan A micrscopic examination will be performed if indicated. Normal [facility] Comment on above: Performed By: #### L ACT #### [facility] [address] [place] [address] Dr. Pratibha Stevenson Glucose Ql (U) Negative Normal NEGATIVE [facility] Comment on above: Performed By: #### L ACT #### [facility] [address] [place] [address] Dr. Pratibha Stevenson Hemoglobin Ql (U) Negative Normal NEGATIVE [facility] Comment on above: Performed By: #### L ACT #### [facility] [address] [place] [address] Dr. Pratibha Stevenson Ketones Ql (U) Negative Normal NEGATIVE [facility] Comment on above: Performed By: #### L ACT #### [facility] [address] [place] [address] Dr. Pratibha Stevenson LEUKOCYTES Negative Normal NEGATIVE [facility] Comment on above: Performed By: #### L ACT #### [facility] [address] [place] [address] Dr. Pratibha Stevenson Nitrite Ql (U) Negative Normal NEGATIVE [facility] Comment on above: Performed By: #### L ACT #### [facility] [address] [place] [address] Dr. Pratibha Stevenson pH (U) 6.0 [pH] Normal 5-9 [facility] Comment on above: Performed By: #### L ACT #### [facility] [address] [place] [address] Dr. Pratibha Stevenson SPEC GRAVITY <=1.005 Abnormal 1.005-<=1.025 [facility] Comment on above: Performed By: #### L ACT #### [facility] [address] [place] [address] Dr. Pratibha Stevenson UA PROTEIN Negative Normal NEGATIVE/ TRACE [facility] Comment on above: Performed By: #### L ACT #### [facility] [address] [place] [address] Dr. Pratibha Stevenson UR MICRO IND NOT INDICATED Normal [facility] Comment on above: Performed By: #### L ACT #### [facility] [address] [place] [address] Dr. Pratibha Stevenson Urobilinogen Qn (U) 0.2 {Butch'U}/dL Normal 0.2 - 1. 0 [facility] Comment on above: Performed By: #### L ACT #### [facility] [address] [place] [address] Dr. Pratibha Stevenson LACTATE/LACTIC ACIDon 2022 Lactate [Moles/Vol] 0.8 mmol/L Normal 0.4-2.0 [facility] Comment on above: Performed By: #### L ACT #### [facility] [address] [place] [address] Dr. Pratibha Stevenson PROF 14(COMP METB)on 023 Albumin [Mass/Vol] 4.3 g/dL Normal 3.4-5.0 [facility] Comment on above: Performed By: #### E RUR #### [facility] [address] [place] [address] Dr. Pratibha Stevenson Albumin/Globulin [Mass ratio] 1.3 {ratio} Normal [facility] Comment on above: Performed By: #### E RUR #### [facility] [address] [place] [address] Dr. Pratibha Stevenson ALP [Catalytic activity/Vol] 94 U/L Normal 46-116 [facility] Comment on above: Performed By: #### E RUR #### [facility] [address] [place] [address] Dr. Pratibha Stevenson ALT [Catalytic activity/Vol] 23 U/L Normal 16-63 [facility] Comment on above: Performed By: #### E RUR #### [facility] [address] [place] [address] Dr. Pratibha Steevnson Anion gap [Moles/Vol] 10.5 mmol/L Normal [facility] Comment on above: Performed By: #### E RUR #### [facility] [address] [place] [address] Dr. Pratibha Stevenson AST [Catalytic activity/Vol] 21 U/L Normal 15-37 [facility] Comment on above: Performed By: #### E RUR #### [facility] [address] [place] [address] Dr. Pratibha Stevenson Bilirubin [Mass/Vol] 0.5 mg/dL Normal 0.2-1.0 [facility] Comment on above: Performed By: #### E RUR #### [facility] [address] [place] [address] Dr. Pratibha Stevenson Calcium [Mass/Vol] 9.3 mg/dL Normal 8.5-10.1 [facility] Comment on above: Performed By: #### E RUR #### [facility] [address] [place] [address] Dr. Pratibha Stevenson Chloride [Moles/Vol] 102 mmol/L Normal 98-107 [facility] Comment on above: Performed By: #### E RUR #### [facility] [address] [place] [address] Dr. Pratibha Stevenson CO2 [Moles/Vol] 26.2 mmol/L Normal 21.0-32.0 [facility] Comment on above: Performed By: #### E RUR #### [facility] [address] [place] [address] Dr. Pratibha Stevenson Creatinine [Mass/Vol] 1.18 mg/dL Normal 0.70-1.30 [facility] Comment on above: Performed By: #### E RUR #### [facility] [address] [place] [address] Dr. Pratibha Stevenson EGFR-AF FRENCH >60 Normal >=60 [facility] Comment on above: Performed By: #### E RUR #### [facility] [address] [place] [address] Dr. Pratibha Stevenson EGFR-NON AF FRENCH >60 Normal >=60 [facility] Comment on above: Performed By: #### E RUR #### [facility] [address] [place] [address] Dr. Pratibha Stevenson Globulin (S) [Mass/Vol] 3.2 g/dL Normal [facility] Comment on above: Performed By: #### E RUR #### [facility] [address] [place] [address] Dr. Pratibha Stevenson Glucose [Mass/Vol] 115 mg/dL Critically high 74-106 [facility] Comment on above: Performed By: #### E RUR #### [facility] [address] [place] [address] Dr. Pratibha Stevenson Potassium [Moles/Vol] 3.7 mmol/L Normal 3.5-5.1 [facility] Comment on above: Performed By: #### E RUR #### [facility] [address] [place] [address] Dr. Pratibha Stevenson Protein [Mass/Vol] 7.5 g/dL Normal 6.4-8.2 [facility] Comment on above: Performed By: #### E RUR #### [facility] [address] [place] [address] Dr. Pratibha Stevenson Sodium [Moles/Vol] 135 mmol/L Critically low 136-145 Th [facility] Comment on above: Performed By: #### E RUR #### [facility] [address] [place] [address] Dr. Pratibha Stevenson Urea nitrogen [Mass/Vol] 11.0 mg/dL Normal 7.0-18.0 [facility] Comment on above: Performed By: #### E RUR #### [facility] [address] [place] [address] Dr. Pratibha Stevenson Urea nitrogen/Creatinine [Mass ratio] 9.3 mg/mg Normal [facility] Comment on above: Performed By: #### E RUR #### [facility] [address] [place] [address] Dr. Pratibha Stevenson TROPONIN, HIGH SENSITIVITYon 07-20-2022 HSTROP 5.0 pg/mL Normal 4.0-76.1 [facility] Comment on above: Result Comment: CUT- OFF POINTS HAVE BEEN ESTABLISHED BASED ON THE FOURTH UNIVERSAL DEFINITIONS OF MYOCARDIAL INFARCTION. THE UPPER REFERENCE LIMIT (URL) OF TROPONIN, DEFINED THE 99TH PERCENTILE OF cTnI DISTRIBUTION IN A REFERENCE POPULATION, HAS BEEN CONFIRMED THE DECISION THRESHOLD FOR [place] DIAGNOSIS. Performed By: #### E RUR #### [facility] [address] [place] [address] Dr. Pratibha Stevenson Formson 07-15-2022 Forms [id number]#1.0 0CD:127 Normal [facility] Screenson 07-15-2022 Screens [id number] 0CD:127 Normal [facility] Screens [id number] 0CD:127 Normal [facility] Patient Educationon 07-14-19 Patient Education [...] Rhubarb. ? Beets. ? Potato chips and uzbek fries. ? Nuts. ? If you regularly take a diuretic medicine, make sure to eat at least 1?2 fruits or vegetables high in potassium each day. These include: ? Avocado. ? Banana. ? Rose, prune, carrot, or tomato juice. ? Baked [...] dr (more content not included)... Normal [facility] Urology Office/Clinic Noteon 07-13-2022 Urology Office/Clinic Note Chief Complaint Pt is here for PO stent removal HPI Staff Ethan is a 31 y.o. male new patient here for [facility] ER follow up. Urology consult done 05/08/22 @ [facility] due to 4-5mm Ureteral Stone. S/P [...] yo male new patient following up to [facility] ER. IPSS 13. MARGOTH 14. 1. Ureteral stone (N20.1: Calculus of ureter) Urology consult 05/08/22 at [facility] due to 4-5 mm Ureteral Stone [...] Menchaca, URL, URO Additional Instructions: 6 mos, KUB, [...] 12/26/1997 Recor (more content not included)... Normal [facility] Comment on above: Result Comment: Elec tronically Signed By: Handy WILEY, Shirley Menchaca\.br\Date and Time Signed: 07/13/22 16:53 EDT\.br\Electronically Co-Signed By: Shalini Macias\.br\Date and Time Co-Signed: 07/13/22 10:29 EDT RAD - MISCon 07-11-2022 RAD - MISC [id number]#1.0 0CD:127 Normal [facility] RAD - Ultrasound Reporton RAD - Ultrasound Report [id number]#1.0 0CD:127 Normal [facility] US KIDNEYSon 07-06-2022 US KIDNEYS [...] by: RAMO BLAKE Date: 2022-07-06 11:14 Normal [facility] XR KUB 1 VIEWon 07-06-2022 XR [...] by: SAUMYA MARSH Date: 2022-07-06 11:57 Normal [facility] Coding Summary.on 05-30-2022 Coding Summary. CD:[id number] Gh 0bWw+PGhlYWQ+MX7BLSUtL 36amEOmzY1HK4jJEJ3OUXA TSWQDBC5JKP3qlTX8TAipW 2VybiAv DssepOQiOH32IHf0ETU8rE wnJUhjzF7pbSPpJ7q4IbCy VI34iZ51XAsaMFDcYgU2Jz ZpbjsgbWFy I0dtFzXtkEDlTun+PHRhYm xlIHdpZHRoPScxMDAlJyBz aDahWY8xUt6qXQTdPCUmcY xhcHNlOiBj k3wvNRBcEOqwNG9yaWshI9 ErvWR7PCVtg7x9Qb56yTP+ CWErDBK0qRzhDChcm822Qu Vlp2rtNWF6 wLArALgtCAY4S93jc4Q6TG BsORWtCCE7vYB0jT6plQim cshnH2KuyQLaHlS2IRQ3kW HqbH4paXsr tivooV6ySan+P45MRW8ODP OQUZ0OYce1D9DiIpwjgXL+ GK00FEBfEZ65qAJhbXMhn0 qyiOo5UkNi EKOsLCV7hXepZVzkg3KsIA HdM99dvIKrq5H3HIChtMjc nFEdZwSrpPS0sY9nJDrksb rhb8zeopgx Vnjyu7enrg11gK94N12rNR iwIUCeFFQ1RFNqQQHnpThs hc1oqG3xYi4+TYrsk0bpi7 odyAv0KhHm UOAkhtOtkZckAFS3u2OvQi 76O7AtsCjgc5QlPcm5rc41 cAItm7C0hFB8LAqbPHXdkX 5zJQizAaB8 YXLeVeBrgV03lXEuXJvpYi 8ogOtnmGemTX3xVSMxsrgd XJRozZ3dHLNvwMBpcQflDT 4wNTBpbjtm x922ZnUdJSN4ONOzlWLhY4 GjpW0lCsGtHFFuNVGqS8Iw lQKzSRtcH804UQdwLpG5ZP WizsPmZ8Pb GTZjaItpPeX5l9S4Ot6Hk6 ByggkxKIB6MMlyNWBxXvHl EsJyQtK0B3JuPnb0UFGyhV oyKL3gA5Bg BVCgssvoddphlYB3QSZiTC VnsJ80sWVeSQniFj5dm5N0 b182DXFqKRUvbH78Uo2vxN ogMTBwdCBU jF8psjmuo9miezoxJsXiXD OnAZa9ZNg2YEThqOlbVyFx UJA4NfF8SAS2nMPpfU8woN oygcggwW2k Oyc+S88oaH4aRUA0DJJ3hf riSHFwjcOaMY20ZM93U5Dx PjwvdGFibGU+PGRpdiBzdH euVK9dQjZc h2qwn0UpYQjkA5MsWAVqHQ ojUpq1VCOqLRI8vZG4oI6w ELVkQMtvb2R3cXO1I6Cvhe Euvm2pv5as UIZlXYtdA33mrVJjt0Q6VV JefFX6ZSAffWypWoQmeC16 Oyc+GMYcpVeko1MnVnzue4 uav6hbnFk2 UmGvULAbcyLsbFcdDHW1h6 VbGi69J50rOOfcNOVfFPSr GBNqZTFhfAmmrt1ilA9pTt 8+PGNvbCB3 rOX1kV6xNAMwUbH3JFmwD9 20UpQcrAThXsqiw9eon2wb nNg0AsFwACYhkvOngFksOJ P9w4RoWv13 S39mSRrdUJYgLNOcNOObRV WewQqzqc6sfV6eCc0+PC9j c4uoef91bR58oMF+PHRkIH L2wChtANjc AEUuzK0gOJnbLbM3YEPsYb WeqR80iPXyHSagPq7zgPwu eJxbEN7fSMFzmunpu420Lv Qer1myDCTg oNNfXCwzEDN7G64eg2X4OH KjVYVeLKB4sXZ8dS7fcWuj bjogbGVmdDsgdmVydGljYW aoNIzhG326 IHRvcDsnPlBhdGllbnQgTm GrCJj6G9DwYyn6DXYonUjf CY4vwKQkOIrgVq4luWeffW dxUE5bJONt heyuj468UhVwy9fkMFVwnN DdTUemQGH4E08ug4T6TIAq JUHbUZY9aIA7nV4urPxeef ogbGVmdDsg tbXiuHhlUHmeVOcoP799CT RvcDsnPkJpcnRoIERhdGU6 SG95CB42eWKvk1H7jBX2B0 BhZGRpbmct jlzksJM3YQOeBHGciD35Fe 0tiJizCx5bJKUaRSA2TUAh nWCiV6VztX6uFmNgCNMoJZ UaV9SbmCYo VXmwB421DShcCgV5TIIuzj WaS1UsIGEamFxgNjA9i3R6 Sd8HN9Q3CQ87PA82qAOvy2 I5lUC3S4Mo FCWuwiqdqlogqXV6OEXhPI ZlrN19Mn2wuNkeRy7bTOKp GLF5YBDtaSEdF1YcaP5mEp AjMDAwMDAw T5YwyEOlGNyvB080GFzdRy L8LFXvwrJiZ4EyPOTywQcd LlS2q4O8Ex7JTGb6KD72PW 98pXQis9E4 kEK4A1ZuHTWumfsxyworuM U6PXUlEQZdbL95Gg2yvWvx Bx1rWLAsYPN3OBWmnHCwB2 WpxJ7sQcRv FUXwDMYwK3MliRSlJJypD1 48LVurPsU0TVJnoeGmM1Vg XWZtlEjfMgT4c5Q7Lg8WSL YyKX41VDO2 iTB9HX46BM80M1DlMvybjM FibGU+PHRhYmxlIHdpZHRo JPdvHNTyZfTzlLudQX5yQc 9yZGVyLWNv cZiosOQmAtHxa7omFXNqGW mrLU0mnRcwS5QtsGW5MRBa k8m8Kx17G03fR2XmmIY+PG KyfJU4sOE2 iW3oWxIdZyX9HWeoS779Ct ChpFLcRoiuk8ccc9ryvFu1 KuT6AUZytiYljBspHIK0b2 TeSs75X99e IHdpZHRoPSIxNSUiIHZhbG bitj1llL6pVx8+PGNvbCB3 qRF7eJ1lJsKwYcC1UJotQ6 49InRvcCIv Uiacd7ebx1pduJb3SjNpYL DneeHrnRbaJOK0t2OcRl08 J6SwaDfmf3ExQfi0ze65zQ Vpg0J7bXO9 L4IbDPIxsdbrxNHzcRupGJ 9gLVJcigclYTKjnL0kIUQs V8m1ZlWcVgP8PHopC0Cfxi G7NDQhtWCv LScmRWI7S09jd1C7XCUxPO BoFLL1xOG3oL2krYhlovvg bGVmdDsgdmVydGljYWwtYW gpL762EUMg aWmrKMBygO5fLYKtbKKwdR rvRR5vMUDndmrbBaXXPSKC QqcmTRJVI13nDFvpdLT+PH ZiLKZ6jBpm UXgyOZEagW2hAUSyV0n0Rn UsXsY3HJztI9HhXADexsmk Ar34lI5fFrFfPuR9BOaxN3 XhcsS4IQCd yRWeRSgqWEU9R15lj9C3AJ IhLRFjMDG3mTY0qO0uiTxo bjogbGVmdDsgdmVydGljYW mwROugG392 RFFmySrhYkK5ItV5HwE5MR I5A4OcRta7ZNXfqEpxXX4r eEZmJUbsCw1dmOtvfYobPO 4wNTBpbjtw ECBusN0yPBNdbAPhjZswLK 7dPNEijmplp576ZoHhBRB6 BHKvkQTeM0QwhO9tMnBmUZ SoCANmO4Ac wZSfKGkjJ230FAwxPiX4HY CgxhNvE6TuSPDrxOzzKqO2 s8O3Yn4wZPJXGBDmssyauL Q+PHRkIHN0 aGqgHCmyQZRcwC0bCLOzQ1 z4UjUmRoX7HIkqR4ZkASJs yrkuRe78pJ4rJdRjWzP2FD rkE8RohuU4 PTDmoNUbCIzaVTM5A48yt7 A4VUYtUFYqVUD8vDP0sQ1s bGlnbjogbGVmdDsgdmVydG ljYWwtYWxp G004WKXeaSuaRq8klVC0I4 BvZiv1QLPymFsxPX3usELy ONfoBd6puOypeJxkCV2wCJ BpbjtwYWRk oV6aYPEqlNLfkXeoBK4oWI Dvdepjs591IbFuFAR7AVUn xTSsD3KcfM6xSiVkAIQxAG LwA3YsaXGr GEkdA459HYaoHmA5AWIvxx PkB8UrNEUvmYtrBjZ1f2X1 Wj5LwPAlNWTuVV62RO54ZR 04X1WaJqvm dGFibGU+PHRhYmxlIHdpZH UaJDbaJTQtZzIbqOerTF2p Xy6jLGQmNCQitVwkvITpCx Tzy0iwOYXx JZyqEW8vvPwnQ5CvzOO6YR Dvv3a6Zc39B41vD0ZjrZR+ HUMktVM9uHT5yJ3rOvHlSd J6TTlkR474 KiVnaHXmDpvla4osf2cwdA y7ScPsWYMymcAkdKwjAMO0 k5ZeNu11I06aIIzvLEJiGU IyMCUiIHZh bQvzez1rnD9tVf8+PGNvbC T6vLT0zX9lLpPnNgR5CAjv O067RgTycRStKzmnM15eM6 JvdXA+PHRy Vps8SSEywIkeNQ6ejFEbWV veFk2aVUF7FeHeCrEkUOre J1OjTCYfvvfzghspoYK7OJ SkSRWkpG65 Ju2kxHqmLl4oDEUcMPU2SS CzeHLvS8RrzR6iVrIoHLEt AVFnH6YvtFKiXEshK510MS ctUlK2UNSy xnPmQ5UaASMepGrpFaI1b5 K8Ik2OtOqleRXlAY8rIdId KJp6Z7JfAby3QLRulGjkRS 0ncGFkZGlu Le9yjUwfiTfqKO3zYSEbge wqv818HnZam3zrACIxhJNl JKckDGB9N41em1P4GUGoCV BqKDF3rVD4 xP9ovEygmcfvjLGjrXqfzk FnfJhlSVfaKEyjF337NCMn sEylSsBFMzv9O3TlEni5SA XqwTpxDR3j hHImDFwjPc7reIhzyVmrJP 4qUWUljxufi644FtRel4qs HAJayWFuRTztQCX2X31wn1 V6RLDbGQPj BOS9iIV0gV5iqYvjewloqF VmdDsgdmVydGljYWwtYWxp X263JKWiwPesWf1FAds7N6 GyLec5ABAj lVuvGU3yuWQhVLrfGr4aoE zouTrmIP7uLUAhzzqin893 QoPzu3arJCLnfAPyZZmiFV D7P36rn1G2 AKMwRSSzGGH7qZE8mG1koE lnbjogbGVmdDsgdmVydGlj ZXcnZXrsS029NMHriUauDc BheWVyOjwv dGQ+BN80rl61P7QfPcxtCr m2SZQfBYQ1yKD0cV3vWIBd OGcjk0X9oKC8O6McenIgxh 6ri6pzFDHn ZTog (more content not included)... Normal [facility] Operative Reporton Operative Report Patient: AUDREY DONALD L Age: 31 years Sex: Male : 1990 Associated Diagnoses: None Author: Shirley Murrell MD Procedure Operative Information Details: Date/ Time: 05/23/2022 10:00:00. Pre-Op Dx: Kidney stone (MUO27-HJ N20.0, Billing Diagnosis, Medical), Foreign Body in [...] serum labs and 24-hour urine . Normal [facility] Comment on above: Result Comment: Elec tronically Signed By: Shirley Murrell MD\.br\Date and Time Signed: 05/27/22 17:07 EST Consent for Procedure/Surger yon 05-26-2022 Consent for Procedure/Surgery [id number]#1.0 0CD:127 [facility] IntraOperative Documentson 0 05-26-2022 IntraOperative Documents [id number]#1.0 0CD:127 [facility] Formson 05-24-2022 Forms [id number]#1.0 0CD:127 [facility] Consent for Treatmenton 05-02 Consent for Treatment [id number]#1.0 0CD:127 [facility] Main OR Intraoperative Recor don 05-23-2022 Main OR Intraoperative Record IntraOp Document Type FTURO Summary Primary Physician: Shirley Murrell MD Finalized Date/Time: 05/23/22 10:14:49 Pt. Name: KIRBYLESLYETHAN D.O.B./Sex: 1990 Male Med Rec #: [id number] Physician: Shirley Murrell MD Financial #: [id number] Pt. Type: O Room/Bed: / Admit/Disch: 05/23/22 08:41:51 - Institution: Case Times FTURO Entry 1 Patient Times In Room 05/23/22 10:05:00 Out Room 05/23/22 10:21:00 Procedure Times Start 05/23/22 10:11:00 Stop 05/23/22 10:16:00 Anesthesia Times Last Modified By: Yumi CAMARILLO, Marlyn RIVERA 05/23/22 10:14:32 Case Attendance FTURO Entry 1 Entry 2 Entry 3 Case Attendee Handy WILEY, Shirley Eason RN, MICHELLEOR, Leandra REYES, Nereida Cline Role Performed Surgeon - Primary Patient Relations Specialist - Primary Scrub - Primary Time In 05/23/22 10:05:00 05/23/22 10:05:00 05/23/22 10:05:00 Time Out 05/23/22 10:21:00 05/23/22 10:21:00 05/23/22 10:21:00 Procedure CYSTOSCOPY LOCAL WITH CYSTOSCOPY LOCAL WITH CYSTOSCOPY LOCAL WITH STENT REMOVAL(Left) STENT REMOVAL(Left) STENT REMOVAL(Left) Comments Last Modified By: Yumi RN, CNOR, Yumi CAMARILLO, MICHELLEOR, Yumi CAMARILLO, MICHELLEOR, [...] Clean-Contaminated Last Modified By: NICOLE Eason RN, Marlyn 05/23/22 10:14:34 General Case Data FTURO Pre-Care Text: Classifies surgical wound, implements aseptic technique, initiates traffic control Entry 1 Case Information OR URO 1 FT Case Level None Wound Class 2 - Clean-Contaminated Specialty Urology Preop Diagnosis KIDNEY STONES Postop Same As Preop Yes Postop Diagnosis KIDNEY STONES Outcomes Met? Yes Last Modified By: Yumi CAMARILLO, NICOLE, Marlyn 05/23/22 10:08:35 Post-Care Text: The patient [...] NICOLE Eason RN, Ruthann 05/23/22 10:14 Normal [facility] Main OR Preoperative Recordo n 05-23-2022 Main OR Preoperative Record Holding Area Document Type FTURO Summary Primary Physician: Shirley Murrell MD Finalized Date/Time: 05/23/22 10:11:23 Pt. Name: ETHAN DONALD/Sex: 1990 Male Med Rec #: [id number] Physician: Shirley Murrell MD Financial #: [id number] Pt. Type: O Room/Bed: / Admit/Disch: 05/23/22 [...] Comment: difficulty voiding, not Skin Integrity Intact, [place], Warm, & feeling empty, pain in Dry [...] 09:28 NICOLE Eason RN, Ruthann 05/23/22 10:11 [facility] Insurance Correspondence Off iceon 05-17-2022 Insurance Correspondence Office [id number]#1. 00CD:127 [facility] ED Note-Physicianon 05-14-19 ED Note-Physician [id number]#1.0 0CD:127 [facility] RAD - CT Reporton 05-14-[address] RAD - CT Report [id number]#1. 00CD:127 [facility] RAD - CT Report [id number]#1. 00CD:127 [facility] RAD - MISCon 05-14-2022 RAD - MISC [id number]#1. 00CD:127 [facility] RAD - MISC [id number]#1. 00CD:127 [facility] RAD - MISC [id number]#1. 00CD:127 Normal [facility] RAD - Ultrasound Reporton RAD - Ultrasound Report [id number]#1. 00CD:127 Normal [facility] AMYLASEon 05-12-2022 Amylase [Catalytic activity/Vol] 39 U/L Normal 25-115 [facility] Comment on above: Performed By: #### E RUR #### [facility] [address] [address] [address] Pratibha Stevenson CBC AUTO DIFFon 05-12-2022 BASO # 0.0 103/ul Normal 0.0-0.1 [facility] Comment on above: Performed By: #### L ACT #### [facility] [address] [place] [address] Dr. Pratibha Stevenson Basophils/100 WBC (Bld) 0.2 % Normal 0.2-2.0 [facility] Comment on above: Performed By: #### L ACT #### [facility] [address] [place] [address] Dr. Pratibha Stevenson EO # 0.0 103/ul Normal 0.0-0.7 [facility] Comment on above: Performed By: #### L ACT #### [facility] [address] [place] [address] Dr. Pratibha Stevenson Eosinophils/100 WBC (Bld) 0.0 % Critically low 0.9-7.0 [facility] Comment on above: Performed By: #### L ACT #### [facility] [address] [place] [address] Dr. Pratibha Stevenson Erythrocyte distribution width (RBC) [Ratio] 11.7 % Normal 11.0-15.0 [facility] Comment on above: Performed By: #### L ACT #### [facility] [address] [place] [address] Dr. Pratibha Stevenson Hematocrit (Bld) [Volume fraction] 43.0 % Normal 42.0-54.0 [facility] Comment on above: Performed By: #### L ACT #### [facility] [address] [address] [address] Pratibha Stevenson Hemoglobin (Bld) [Mass/Vol] 13.9 g/dL Critically low 14.0-18.0 [facility] Comment on above: Performed By: #### L ACT #### [facility] [address] [address] [address] Pratibha Stevenson IG # 0.03 10e3/ul Normal 0.00-0.03 [facility] Comment on above: Performed By: #### L ACT #### [facility] [address] [address] [address] Pratibha Stevenson IG % 0.3 % Normal 0.0-0.5 [facility] Comment on above: Performed By: #### L ACT #### [facility] [address] [address] [address] Pratibha Stevenson LYMPH # 0.8 103/ul Critically low 1.2-3.8 [facility] Comment on above: Performed By: #### L ACT #### [facility] [address] [address] [address] Pratibha Stevenson Lymphocytes/100 WBC (Bld) 8.6 % Critically low 20.5-60.0 [facility] Comment on above: Performed By: #### L ACT #### [facility] [address] [address] [address] Pratibha Stevenson MANUAL DIFF REQ NO Normal [facility] Comment on above: Performed By: #### L ACT #### [facility] [address] [address] [address] Pratibha Stevenson MCH (RBC) [Entitic mass] 31.0 pg Normal 25.9-34.0 [facility] Comment on above: Performed By: #### L ACT #### [facility] [address] [address] [address] Pratibha Stevenson MCHC (RBC) [Mass/Vol] 32.3 g/dL Normal 29.9-35.2 [facility] Comment on above: Performed By: #### L ACT #### [facility] [address] [address] [address] Pratibha Stevenson MCV (RBC) [Entitic vol] 96.0 fL Critically high 80.0-94.0 [facility] Comment on above: Performed By: #### L ACT #### [facility] [address] [address] [address] Pratibha Stevenson MONO # 0.4 103/ul Normal 0.3-0.8 [facility] Comment on above: Performed By: #### L ACT #### [facility] [address] [address] [address] Pratibha Stevenson Monocytes/100 WBC (Bld) 4.5 % Normal 1.7-12.0 [facility] Comment on above: Performed By: #### L ACT #### [facility] [address] [place] [address] Dr. Pratibha Stevenson NEUT # 8.4 103/ul Critically high 1.4-6.5 [facility] Comment on above: Performed By: #### L ACT #### [facility] [address] [place] [address] Dr. Pratibha Stevenson Neutrophils/100 WBC (Bld) 86.4 % Critically high 43.0-75.0 [facility] Comment on above: Performed By: #### L ACT #### [facility] [address] [place] [address] Dr. Pratibha Stevenson Platelet mean volume (Bld) [Entitic vol] 10.6 fL Normal 9.5-13.5 [facility] Comment on above: Performed By: #### L ACT #### [facility] [address] [place] [address] Dr. Pratibha Stevenson PLT 227 103/ul Normal 150-450 [facility] Comment on above: Performed By: #### L ACT #### [facility] [address] [place] [address] Dr. Pratibha Stevenson RBC 4.48 106/ul Critically low 4.70-6.10 [facility] Comment on above: Performed By: #### L ACT #### [facility] [address] [place], [place] [address] Dr. Pratibha Stevenson WBC 9.7 103/ul Normal 4.0-11.0 [facility] Comment on above: Performed By: #### L ACT #### [facility] [address] [place], [place] [address] Dr. Pratibha Stevenson Consent for Procedure/Surger yon 05-12-2022 Consent for Procedure/Surgery [id number]#1.0 0CD:127 Normal [facility] LIPASEon 05-12-2022 Lipase [Catalytic activity/Vol] 110.0 U/L Normal 73.0-393.0 [facility] Comment on above: Performed By: #### E RUR #### [facility] [address] [place] [address] Dr. Pratibha Stevenson Operative Reporton Operative Report [id number]#1.0 0CD:127 Normal [facility] Operative Report [id number]#1.0 0CD:127 Normal [facility] Comment on above: Other Comment: SAMMI PATHAK PAGES PROF 14(COMP METB)on 023 Albumin [Mass/Vol] 3.3 g/dL Critically low 3.4-5.0 [facility] Comment on above: Performed By: #### E RUR #### [facility] [address] [place] [address] Dr. Pratibha Stevenson Albumin/Globulin [Mass ratio] 1.2 {ratio} Normal [facility] Comment on above: Performed By: #### E RUR #### [facility] [address] [place] [address] Dr. Pratibha Stevenson ALP [Catalytic activity/Vol] 68 U/L Normal 46-116 [facility] Comment on above: Performed By: #### E RUR #### [facility] [address] [place] [address] Dr. Pratibha Stevenson ALT [Catalytic activity/Vol] 27 U/L Normal 16-63 [facility] Comment on above: Performed By: #### E RUR #### [facility] [address] [address] [address] Pratibha Stevenson Anion gap [Moles/Vol] 10.4 mmol/L Normal [facility] Comment on above: Performed By: #### E RUR #### [facility] [address] [address] [address] Pratibha Stevenson AST [Catalytic activity/Vol] 25 U/L Normal 15-37 [facility] Comment on above: Performed By: #### E RUR #### [facility] [address] [address] [address] Pratibha Stevenson Bilirubin [Mass/Vol] 0.5 mg/dL Normal 0.2-1.0 [facility] Comment on above: Performed By: #### E RUR #### [facility] [address] [address] [address] Pratibha Stevenson Calcium [Mass/Vol] 8.8 mg/dL Normal 8.5-10.1 [facility] Comment on above: Performed By: #### E RUR #### [facility] [address] [address] [address] Pratibha Stevenson Chloride [Moles/Vol] 105 mmol/L Normal 98-107 [facility] Comment on above: Performed By: #### E RUR #### [facility] [address] [address] [address] Pratibha Stevenson CO2 [Moles/Vol] 26.5 mmol/L Normal 21.0-32.0 [facility] Comment on above: Performed By: #### E RUR #### [facility] [address] [address] [address] Pratibha Stevenson Creatinine [Mass/Vol] 1.15 mg/dL Normal 0.70-1.30 [facility] Comment on above: Performed By: #### E RUR #### [facility] [address] [address] [address] Pratibha Stevenson EGFR-AF FRENCH >60 Normal >=60 [facility] Comment on above: Performed By: #### E RUR #### [facility] [address] [address] [address] Pratibha Stevenson EGFR-NON AF FRENCH >60 Normal >=60 [facility] Comment on above: Performed By: #### E RUR #### [facility] [address] [address] [address] Pratibha Stevenson Globulin (S) [Mass/Vol] 2.7 g/dL Normal [facility] Comment on above: Performed By: #### E RUR #### [facility] [address] [address] [address] Pratibha Stevenson Glucose [Mass/Vol] 119 mg/dL Critically high 74-106 [facility] Comment on above: Performed By: #### E RUR #### [facility] [address] [place] [address] Dr. Pratibha Stevenson Potassium [Moles/Vol] 3.9 mmol/L Normal 3.5-5.1 [facility] Comment on above: Performed By: #### E RUR #### [facility] [address] [address] [address] Pratibha Stevenson Protein [Mass/Vol] 6.0 g/dL Critically low 6.4-8.2 [facility] Comment on above: Performed By: #### E RUR #### [facility] [address] [place] [address] Dr. Pratibha Stevenson Sodium [Moles/Vol] 138 mmol/L Normal 136-145 [facility] Comment on above: Performed By: #### E RUR #### [facility] [address] [address] [address] Pratibha Stevenson Urea nitrogen [Mass/Vol] 7.0 mg/dL Normal 7.0-18.0 [facility] Comment on above: Performed By: #### E RUR #### [facility] [address] [place] [address] Dr. Pratibha Stevenson Urea nitrogen/Creatinine [Mass ratio] 6.1 mg/mg Normal [facility] Comment on above: Performed By: #### E RUR #### [facility] [address] [place] [address] Dr. Pratibha Stevenson XR KUB 1 VIEWon [...] ROSALINO VIDALES Date: 2022-05-12 06:43 Normal [facility] AMYLASEon 05-11-2022 Amylase [Catalytic activity/Vol] 52 U/L Normal 25-115 [facility] Comment on above: Performed By: #### C MP, GREG, LIPA #### [facility] [address] [place] [address] Dr. Pratibha Stevenson CBC AUTO DIFFon 05-11-2022 BASO # 0.0 103/ul Normal 0.0-0.1 [facility] Comment on above: Performed By: #### C BC #### [facility] [address] [place] [address] Dr. Pratibha Stevenson Basophils/100 WBC (Bld) 0.6 % Normal 0.2-2.0 [facility] Comment on above: Performed By: #### C BC #### [facility] [address] [place] [address] Dr. Pratibha Stevenson EO # 0.2 103/ul Normal 0.0-0.7 [facility] Comment on above: Performed By: #### C BC #### [facility] [address] [place] [address] Dr. Pratibha Stevenson Eosinophils/100 WBC (Bld) 2.3 % Normal 0.9-7.0 [facility] Comment on above: Performed By: #### C BC #### [facility] [address] [place] [address] Dr. Pratibha Stevenson Erythrocyte distribution width (RBC) [Ratio] 11.7 % Normal 11.0-15.0 [facility] Comment on above: Performed By: #### C BC #### [facility] [address] [place] [address] Dr. Pratibha Stevenson Hematocrit (Bld) [Volume fraction] 42.4 % Normal 42.0-54.0 [facility] Comment on above: Performed By: #### C BC #### [facility] [address] [place] [address] Dr. Pratibha Stevenson Hemoglobin (Bld) [Mass/Vol] 14.3 g/dL Normal 14.0-18.0 [facility] Comment on above: Performed By: #### C BC #### [facility] [address] [place] [address] Dr. Pratibha Stevenson IG # 0.01 10e3/ul Normal 0.00-0.03 [facility] Comment on above: Performed By: #### C BC #### [facility] [address] [place] [address] Dr. Pratibha Stevenson IG % 0.2 % Normal 0.0-0.5 [facility] Comment on above: Performed By: #### C BC #### [facility] [address] [place] [address] Dr. Pratibha Stevenson LYMPH # 2.8 103/ul Normal 1.2-3.8 [facility] Comment on above: Performed By: #### C BC #### [facility] [address] [place] [address] Dr. Pratibha Stevenson Lymphocytes/100 WBC (Bld) 41.8 % Normal 20.5-60.0 [facility] Comment on above: Performed By: #### C BC #### [facility] [address] [place] [address] Dr. Pratibha Stevenson MANUAL DIFF REQ NO Normal [facility] Comment on above: Performed By: #### C BC #### [facility] [address] [place] [address] Dr. Pratibha Stevenson MCH (RBC) [Entitic mass] 31.0 pg Normal 25.9-34.0 [facility] Comment on above: Performed By: #### C BC #### [facility] [address] [place] [address] Dr. Pratibha Stevenson MCHC (RBC) [Mass/Vol] 33.7 g/dL Normal 29.9-35.2 [facility] Comment on above: Performed By: #### C BC #### [facility] [address] [place] [address] Dr. Pratibha Stevenson MCV (RBC) [Entitic vol] 92.0 fL Normal 80.0-94.0 [facility] Comment on above: Performed By: #### C BC #### [facility] [address] [place] [address] Dr. Pratibha Stevenson MONO # 0.5 103/ul Normal 0.3-0.8 [facility] Comment on above: Performed By: #### C BC #### [facility] [address] [place] [address] Dr. Pratibha Stevenson Monocytes/100 WBC (Bld) 7.9 % Normal 1.7-12.0 [facility] Comment on above: Performed By: #### C BC #### [facility] [address] [place] [address] Dr. Pratibha Stevenson NEUT # 3.1 103/ul Normal 1.4-6.5 [facility] Comment on above: Performed By: #### C BC #### [facility] [address] [place] [address] Dr. Pratibha Stevenson Neutrophils/100 WBC (Bld) 47.2 % Normal 43.0-75.0 [facility] Comment on above: Performed By: #### C BC #### [facility] [address] [place] [address] Dr. Pratibha Stevenson Platelet mean volume (Bld) [Entitic vol] 10.7 fL Normal 9.5-13.5 [facility] Comment on above: Performed By: #### C BC #### [facility] [address], [place] [address] Dr. Pratibha Stevenson PLT 216 103/ul Normal 150-450 [facility] Comment on above: Performed By: #### C BC #### [facility] [address], [place] [address] Dr. Pratibha Stevenson RBC 4.61 106/ul Critically low 4.70-6.10 [facility] Comment on above: Performed By: #### C BC #### [facility] [address], [place] [address] Dr. Pratibha Stevenson WBC 6.6 103/ul Normal 4.0-11.0 [facility] Comment on above: Performed By: #### C BC #### [facility] [id number] Pratibha Stevenson CT ABD/PELVIS WO CONon [...] by: SAUMYA MARSH Date: 2022-05-11 08:31 Normal [facility] LIPASEon 05-11-2022 Lipase [Catalytic activity/Vol] 241.0 U/L Normal 73.0-393.0 [facility] Comment on above: Performed By: #### C MP, GREG, LIPA #### [facility] [address] [place] [address] Dr. Pratibha Stevenson PROF 14(COMP METB)on 023 Albumin [Mass/Vol] 3.6 g/dL Normal 3.4-5.0 [facility] Comment on above: Performed By: #### C MP, GREG, LIPA #### [facility] [address] [place] [address] Dr. Pratibha Stevenson Albumin/Globulin [Mass ratio] 1.2 {ratio} Normal [facility] Comment on above: Performed By: #### C MP, GREG, LIPA #### [facility] [address] [place] [address] Dr. Pratibha Stevenson ALP [Catalytic activity/Vol] 75 U/L Normal 46-116 [facility] Comment on above: Performed By: #### C MP, GREG, LIPA #### [facility] [address] [place] [address] Dr. Pratibha Stevenson ALT [Catalytic activity/Vol] 28 U/L Normal 16-63 [facility] Comment on above: Performed By: #### C MP, GREG, LIPA #### [facility] [address] [place] [address] Dr. Pratibha Stevenson Anion gap [Moles/Vol] 9.7 mmol/L Normal [facility] Comment on above: Performed By: #### C MP, GREG, LIPA #### [facility] [address] [place] [address] Dr. Pratibha Stevenson AST [Catalytic activity/Vol] 19 U/L Normal 15-37 [facility] Comment on above: Performed By: #### C GREG NGUYEN LIPA #### [facility] [address] [place] [address] Dr. Pratibha Stevenson Bilirubin [Mass/Vol] 0.5 mg/dL Normal 0.2-1.0 [facility] Comment on above: Performed By: #### C GREG NGUYEN LIPA #### [facility] [address] [place] [address] Dr. Pratibha Stevenson Calcium [Mass/Vol] 9.1 mg/dL Normal 8.5-10.1 [facility] Comment on above: Performed By: #### C GREG NGUYEN LIPA #### [facility] [address] [place] [address] Dr. Pratibha Stevenson Chloride [Moles/Vol] 104 mmol/L Normal 98-107 [facility] Comment on above: Performed By: #### C GREG NGUYEN LIPA #### [facility] [address] [place] [address] Dr. Pratibha Stevenson CO2 [Moles/Vol] 29.3 mmol/L Normal 21.0-32.0 [facility] Comment on above: Performed By: #### C GREG NGUYEN LIPA #### [facility] [address] [place] [address] Dr. Pratibha Stevenson Creatinine [Mass/Vol] 1.21 mg/dL Normal 0.70-1.30 [facility] Comment on above: Performed By: #### C GREG NGUYEN, LIPA #### [facility] [address] [place] [address] Dr. Pratibha Stevenson EGFR-AF FRENCH >60 Normal >=60 [facility] Comment on above: Performed By: #### C GREG NGUYEN, LIPA #### [facility] [address] [place] [address] Dr. Pratibha Stevenson EGFR-NON AF FRENCH >60 Normal >=60 [facility] Comment on above: Performed By: #### C GREG NGUYEN, LIPA #### [facility] [address] [address] [address] Pratibha Stevenson Globulin (S) [Mass/Vol] 3.1 g/dL Normal [facility] Comment on above: Performed By: #### C GREG NGUYEN LIPA #### [facility] [address] [place] [address] Dr. Pratibha Stevenson Glucose [Mass/Vol] 88 mg/dL Normal 74-106 [facility] Comment on above: Performed By: #### C GREG NGUYEN LIPA #### [facility] [address] [place] [address] Dr. Pratibha Stevenson Potassium [Moles/Vol] 4.0 mmol/L Normal 3.5-5.1 [facility] Comment on above: Performed By: #### C GREG NGUYEN, LIPA #### [facility] [address] [place] [address] Dr. Pratibha Stevenson Protein [Mass/Vol] 6.7 g/dL Normal 6.4-8.2 [facility] Comment on above: Performed By: #### C GREG NGUYEN, LIPA #### [facility] [address] [place] [address] Dr. Pratibha Stevenson Sodium [Moles/Vol] 139 mmol/L Normal 136-145 [facility] Comment on above: Performed By: #### C GREG NGUYEN, LIPA #### [facility] [address] [place] [address] Dr. Pratibha Stevenson Urea nitrogen [Mass/Vol] 8.0 mg/dL Normal 7.0-18.0 [facility] Comment on above: Performed By: #### C GREG NGUYEN, LIPA #### [facility] [address] [place] [address] Dr. Pratibha Stevenson Urea nitrogen/Creatinine [Mass ratio] 6.6 mg/mg Normal [facility] Comment on above: Performed By: #### C GREG NGUYEN, LIPA #### [facility] [address] [place] [address] Dr. Pratibha Stevenson XR KUB 1 VIEWon [...] MAUREEN GARDNER Date: 2022-05-11 06:36 Normal [facility] AMYLASEon 05-10-2022 Amylase [Catalytic activity/Vol] 41 U/L Normal 25-115 [facility] Comment on above: Performed By: #### L ACT #### [facility] [address] [place] [address] Dr. Pratibha Stevenson CBC AUTO DIFFon 05-10-2022 BASO # 0.0 103/ul Normal 0.0-0.1 [facility] Comment on above: Performed By: #### L ACT #### [facility] [address] [place] [address] Dr. Pratibha Stevenson Basophils/100 WBC (Bld) 0.7 % Normal 0.2-2.0 [facility] Comment on above: Performed By: #### L ACT #### [facility] [address] [place] [address] Dr. Pratibha Stevenson EO # 0.2 103/ul Normal 0.0-0.7 [facility] Comment on above: Performed By: #### L ACT #### [facility] [address] [place] [address] Dr. Pratibha Stevenson Eosinophils/100 WBC (Bld) 2.8 % Normal 0.9-7.0 [facility] Comment on above: Performed By: #### L ACT #### [facility] [address] [address] [address] Pratibha Stevenson Erythrocyte distribution width (RBC) [Ratio] 11.8 % Normal 11.0-15.0 [facility] Comment on above: Performed By: #### L ACT #### [facility] [address] [address] [address] Pratibha Stevenson Hematocrit (Bld) [Volume fraction] 38.8 % Critically low 42.0-54.0 [facility] Comment on above: Performed By: #### L ACT #### [facility] [address] [place] [address] Dr. Pratibha Stevenson Hemoglobin (Bld) [Mass/Vol] 13.3 g/dL Critically low 14.0-18.0 [facility] Comment on above: Performed By: #### L ACT #### [facility] [address] [place] [address] Dr. Pratibha Stevenson IG # 0.02 10e3/ul Normal 0.00-0.03 [facility] Comment on above: Performed By: #### L ACT #### [facility] [address] [place] [address] Dr. Pratibha Stevenson IG % 0.3 % Normal 0.0-0.5 [facility] Comment on above: Performed By: #### L ACT #### [facility] [address] [place] [address] Dr. Pratibha Stevenson LYMPH # 2.1 103/ul Normal 1.2-3.8 [facility] Comment on above: Performed By: #### L ACT #### [facility] [address] [place] [address] Dr. Pratibha Stevenson Lymphocytes/100 WBC (Bld) 35.3 % Normal 20.5-60.0 [facility] Comment on above: Performed By: #### L ACT #### [facility] [address] [place] [address] Dr. Pratibha Stevenson MANUAL DIFF REQ NO Normal [facility] Comment on above: Performed By: #### L ACT #### [facility] [address] [place] [address] Dr. Pratibha Stevenson MCH (RBC) [Entitic mass] 30.7 pg Normal 25.9-34.0 [facility] Comment on above: Performed By: #### L ACT #### [facility] [address] [place] [address] Dr. Pratibha Stevenson MCHC (RBC) [Mass/Vol] 34.3 g/dL Normal 29.9-35.2 [facility] Comment on above: Performed By: #### L ACT #### [facility] [address] [place] [address] Dr. Pratibha Stevenson MCV (RBC) [Entitic vol] 89.6 fL Normal 80.0-94.0 [facility] Comment on above: Performed By: #### L ACT #### [facility] [address] [place] [address] Dr. Pratibha Stevenson MONO # 0.4 103/ul Normal 0.3-0.8 [facility] Comment on above: Performed By: #### L ACT #### [facility] [address] [place] [address] Dr. Pratibha Stevenson Monocytes/100 WBC (Bld) 7.4 % Normal 1.7-12.0 [facility] Comment on above: Performed By: #### L ACT #### [facility] [address] [place] [address] Dr. Pratibha Stevenson NEUT # 3.1 103/ul Normal 1.4-6.5 [facility] Comment on above: Performed By: #### L ACT #### [facility] [address] [place] [address] Dr. Pratibha Stevenson Neutrophils/100 WBC (Bld) 53.5 % Normal 43.0-75.0 [facility] Comment on above: Performed By: #### L ACT #### [facility] [address] [place] [address] Dr. Pratibha Stevenson Platelet mean volume (Bld) [Entitic vol] 10.2 fL Normal 9.5-13.5 [facility] Comment on above: Performed By: #### L ACT #### [facility] [address] [address] [address] Pratibha Stevenson PLT 197 103/ul Normal 150-450 [facility] Comment on above: Performed By: #### L ACT #### [facility] [address] [address] [address] Pratibha Stevenson RBC 4.33 106/ul Critically low 4.70-6.10 [facility] Comment on above: Performed By: #### L ACT #### [facility] [address] [address] [address] Pratibha Stevenson WBC 5.8 103/ul Normal 4.0-11.0 [facility] Comment on above: Performed By: #### L ACT #### [facility] [address] [place] [address] Dr. Pratibha Stevenson LIPASEon 05-10-2022 Lipase [Catalytic activity/Vol] 134.0 U/L Normal 73.0-393.0 [facility] Comment on above: Performed By: #### L ACT #### [facility] [address] [place] [address] Dr. Pratibha Stevenson PROF 14(COMP METB)on 023 Albumin [Mass/Vol] 3.1 g/dL Critically low 3.4-5.0 [facility] Comment on above: Performed By: #### L ACT #### [facility] [address] [place] [address] Dr. Pratibha Stevenson Albumin/Globulin [Mass ratio] 1.1 {ratio} Normal [facility] Comment on above: Performed By: #### L ACT #### [facility] [address] [place] [address] Dr. Pratibha Stevenson ALP [Catalytic activity/Vol] 68 U/L Normal 46-116 [facility] Comment on above: Performed By: #### L ACT #### [facility] [address] [address] [address] Pratibha Stevenson ALT [Catalytic activity/Vol] 25 U/L Normal 16-63 [facility] Comment on above: Performed By: #### L ACT #### [facility] [address] [address] [address] Pratibha Stevenson Anion gap [Moles/Vol] 11.1 mmol/L Normal [facility] Comment on above: Performed By: #### L ACT #### [facility] [address] [place] [address] Dr. Pratibha Stevenson AST [Catalytic activity/Vol] 16 U/L Normal 15-37 [facility] Comment on above: Performed By: #### L ACT #### [facility] [address] [address] [address] Pratibha Stevenson Bilirubin [Mass/Vol] 0.5 mg/dL Normal 0.2-1.0 [facility] Comment on above: Performed By: #### L ACT #### [facility] [address] [place] [address] Dr. Pratibha Stevenson Calcium [Mass/Vol] 8.6 mg/dL Normal 8.5-10.1 [facility] Comment on above: Performed By: #### L ACT #### [facility] [address] [place] [address] Dr. Pratibha Stevenson Chloride [Moles/Vol] 105 mmol/L Normal 98-107 [facility] Comment on above: Performed By: #### L ACT #### [facility] [address] [place] [address] Dr. Pratibha Stevenson CO2 [Moles/Vol] 26.6 mmol/L Normal 21.0-32.0 [facility] Comment on above: Performed By: #### L ACT #### [facility] [address] [place] [address] Dr. Pratibha Stevenson Creatinine [Mass/Vol] 1.12 mg/dL Normal 0.70-1.30 [facility] Comment on above: Performed By: #### L ACT #### [facility] [address] [place] [address] Dr. Pratibha Stevenson EGFR-AF FRENCH >60 Normal >=60 [facility] Comment on above: Performed By: #### L ACT #### [facility] [address] [place] [address] Dr. Pratibha Stevenson EGFR-NON AF FRENCH >60 Normal >=60 [facility] Comment on above: Performed By: #### L ACT #### [facility] [address] [place] [address] Dr. Pratibha Stevenson Globulin (S) [Mass/Vol] 2.7 g/dL Normal [facility] Comment on above: Performed By: #### L ACT #### [facility] [address] [address] [address] Pratibha Stevenson Glucose [Mass/Vol] 86 mg/dL Normal 74-106 [facility] Comment on above: Performed By: #### L ACT #### [facility] [address] [address] [address] Pratibha Stevenson Potassium [Moles/Vol] 3.7 mmol/L Normal 3.5-5.1 [facility] Comment on above: Performed By: #### L ACT #### [facility] [address] [place] [address] Dr. Pratibha Stevenson Protein [Mass/Vol] 5.8 g/dL Critically low 6.4-8.2 [facility] Comment on above: Performed By: #### L ACT #### [facility] [address] [place] [address] Dr. Pratibha Stevenson Sodium [Moles/Vol] 139 mmol/L Normal 136-145 [facility] Comment on above: Performed By: #### L ACT #### [facility] [address] [place] [address] Dr. Pratibha Stevenson Urea nitrogen [Mass/Vol] 12.0 mg/dL Normal 7.0-18.0 [facility] Comment on above: Performed By: #### L ACT #### [facility] [address] [address] [address] Pratibha Stevenson Urea nitrogen/Creatinine [Mass ratio] 10.7 mg/mg Normal [facility] Comment on above: Performed By: #### L ACT #### [facility] [id number] Pratibha Stevenson US KIDNEYSon 05-10-2022 US [...] by: SAUMYA MARSH Date: 2022-05-10 08:37 Normal [facility] XR KUB 1 VIEWon 05-10-2022 XR [...] by: MAUREEN GARDNER Date: 2022-05-10 06:55 Normal [facility] AMYLASEon 05-09-2022 Amylase [Catalytic activity/Vol] 44 U/L Normal 25-115 [facility] Comment on above: Performed By: #### C BC #### [facility] [address] [place] [address] Dr. Pratibha Stevenson CBC AUTO DIFFon 05-09-2022 BASO # 0.1 103/ul Normal 0.0-0.1 [facility] Comment on above: Performed By: #### S JOSE ARMANDO GRASTCX #### [facility] [address] [place] [address] Dr. Pratibha Stevenson Basophils/100 WBC (Bld) 0.9 % Normal 0.2-2.0 [facility] Comment on above: Performed By: #### S JOSE ARMANDO, GRASTCX #### [facility] [address] [place] [address] Dr. Pratibha Stevenson EO # 0.2 103/ul Normal 0.0-0.7 [facility] Comment on above: Performed By: #### S JOSE ARMANDO GRASTCX #### [facility] [address] [place] [address] Dr. Pratibha Stevenson Eosinophils/100 WBC (Bld) 2.6 % Normal 0.9-7.0 [facility] Comment on above: Performed By: #### S JOSE ARMANDO GRASTCX #### [facility] [address] [place] [address] Dr. Pratibha Stevenson Erythrocyte distribution width (RBC) [Ratio] 11.9 % Normal 11.0-15.0 [facility] Comment on above: Performed By: #### S JOSE ARMANDO, GRASTCX #### [facility] [address] [place] [address] Dr. Pratibha Stevenson Hematocrit (Bld) [Volume fraction] 38.8 % Critically low 42.0-54.0 [facility] Comment on above: Performed By: #### S JOSE ARMANDO, GRASTCX #### [facility] [address] [place] [address] Dr. Pratibha Stevenson Hemoglobin (Bld) [Mass/Vol] 13.9 g/dL Critically low 14.0-18.0 [facility] Comment on above: Performed By: #### S SCRN, GRASTCX #### [facility] [address] [place] [address] Dr. Pratibha Stevenson IG # 0.02 10e3/ul Normal 0.00-0.03 [facility] Comment on above: Performed By: #### S SCRN, GRASTCX #### [facility] [address] [address] [address] Pratibha Stevenson IG % 0.4 % Normal 0.0-0.5 [facility] Comment on above: Performed By: #### S SCRN, GRASTCX #### [facility] [address] [place] [address] Dr. Pratibha Stevenson LYMPH # 2.0 103/ul Normal 1.2-3.8 [facility] Comment on above: Performed By: #### S SCRN, GRASTCX #### [facility] [address] [place] [address] Dr. Pratibha Stevenson Lymphocytes/100 WBC (Bld) 34.9 % Normal 20.5-60.0 [facility] Comment on above: Performed By: #### S SCRN, GRASTCX #### [facility] [address] [place] [address] Dr. Pratibha Stevenson MANUAL DIFF REQ NO Normal [facility] Comment on above: Performed By: #### S SCRN, GRASTCX #### [facility] [address] [place] [address] Dr. Pratibha Stevenson MCH (RBC) [Entitic mass] 31.0 pg Normal 25.9-34.0 [facility] Comment on above: Performed By: #### S SCRN, GRASTCX #### [facility] [address] [place] [address] Dr. Pratibha Stevenson MCHC (RBC) [Mass/Vol] 35.8 g/dL Critically high 29.9-35.2 [facility] Comment on above: Performed By: #### S SCRN, GRASTCX #### [facility] [address] [place] [address] Dr. Pratibha Stevenson MCV (RBC) [Entitic vol] 86.6 fL Normal 80.0-94.0 [facility] Comment on above: Performed By: #### S SCRN, GRASTCX #### [facility] [address] [place] [address] Dr. Pratibha Stevenson MONO # 0.4 103/ul Normal 0.3-0.8 [facility] Comment on above: Performed By: #### S JOSE ARMANDO GRASTCX #### [facility] [address] [place] [address] Dr. Pratibha Stevenson Monocytes/100 WBC (Bld) 6.2 % Normal 1.7-12.0 [facility] Comment on above: Performed By: #### S JOSE ARMANDO GRASTCX #### [facility] [address] [place] [address] Dr. Pratibha Stevenson NEUT # 3.1 103/ul Normal 1.4-6.5 [facility] Comment on above: Performed By: #### S JOSE ARMANDO GRASTCX #### [facility] [address] [place] [address] Dr. Pratibha Stevenson Neutrophils/100 WBC (Bld) 55.0 % Normal 43.0-75.0 [facility] Comment on above: Performed By: #### S JOSE ARMANDO GRASTCX #### [facility] [address] [place] [address] Dr. Pratibha Stevenson Platelet mean volume (Bld) [Entitic vol] 9.7 fL Normal 9.5-13.5 [facility] Comment on above: Performed By: #### S JOSE ARMANDO, GRASTCX #### [facility] [address] [place] [address] Dr. Pratibha Stevenson PLT 201 103/ul Normal 150-450 [facility] Comment on above: Performed By: #### S JOSE ARMANDO, GRASTCX #### [facility] [address] [place] [address] Dr. Pratibha Stevenson RBC 4.48 106/ul Critically low 4.70-6.10 [facility] Comment on above: Performed By: #### S JOSE ARMANDO, GRASTCX #### [facility] [address] [place] [address] Dr. Pratibha Stevenson WBC 5.7 103/ul Normal 4.0-11.0 [facility] Comment on above: Performed By: #### S JOSE ARMANDO, GRASTCX #### [facility] [address] [place] [address] Dr. Pratibha Stevenson CULTURE URINEon 05-09-2022 CULTURE URINE Culture Observations : NO GROWTH. Normal [facility] Comment on above: Performed By: #### C BC #### [facility] [address] [place] [address] Dr. Pratibha Stevenson LIPASEon 05-09-2022 Lipase [Catalytic activity/Vol] 98.0 U/L Normal 73.0-393.0 [facility] Comment on above: Performed By: #### C BC #### [facility] [address] [place] [address] Dr. Pratibha Stevenson PROF 14(COMP METB)on 023 Albumin [Mass/Vol] 3.2 g/dL Critically low 3.4-5.0 [facility] Comment on above: Performed By: #### C BC #### [facility] [address] [place] [address] Dr. Pratibha Stevenson Albumin/Globulin [Mass ratio] 1.3 {ratio} Normal [facility] Comment on above: Performed By: #### C BC #### [facility] [address] [place] [address] Dr. Pratibha Stevenson ALP [Catalytic activity/Vol] 74 U/L Normal 46-116 [facility] Comment on above: Performed By: #### C BC #### [facility] [address] [place] [address] Dr. Pratibha Stevenson ALT [Catalytic activity/Vol] 25 U/L Normal 16-63 [facility] Comment on above: Performed By: #### C BC #### [facility] [address] [place] [address] Dr. Pratibha Stevenson Anion gap [Moles/Vol] 10.7 mmol/L Normal [facility] Comment on above: Performed By: #### C BC #### [facility] [address] [place] [address] Dr. Pratibha Stevenson AST [Catalytic activity/Vol] 18 U/L Normal 15-37 [facility] Comment on above: Performed By: #### C BC #### [facility] [address] [address] [address] Pratibha Stevenson Bilirubin [Mass/Vol] 0.7 mg/dL Normal 0.2-1.0 [facility] Comment on above: Performed By: #### C BC #### [facility] [address] [address] [address] Pratibha Stevenson Calcium [Mass/Vol] 8.5 mg/dL Normal 8.5-10.1 [facility] Comment on above: Performed By: #### C BC #### [facility] [address] [place] [address] Dr. Pratibha Stevenson Chloride [Moles/Vol] 106 mmol/L Normal 98-107 [facility] Comment on above: Performed By: #### C BC #### [facility] [address] [place] [address] Dr. Pratibha Stevenson CO2 [Moles/Vol] 27.1 mmol/L Normal 21.0-32.0 [facility] Comment on above: Performed By: #### C BC #### [facility] [address] [place] [address] Dr. Pratibha Stevenson Creatinine [Mass/Vol] 1.16 mg/dL Normal 0.70-1.30 [facility] Comment on above: Performed By: #### C BC #### [facility] [address] [place] [address] Dr. Pratibha Stevenson EGFR-AF FRENCH >60 Normal >=60 [facility] Comment on above: Performed By: #### C BC #### [facility] [address] [place] [address] Dr. Pratibha Stevenson EGFR-NON AF FRENCH >60 Normal >=60 [facility] Comment on above: Performed By: #### C BC #### [facility] [address] [place] [address] Dr. Pratibha Stevenson Globulin (S) [Mass/Vol] 2.5 g/dL Normal [facility] Comment on above: Performed By: #### C BC #### [facility] [address] [place] [address] Dr. Pratibha Stevenson Glucose [Mass/Vol] 90 mg/dL Normal 74-106 [facility] Comment on above: Performed By: #### C BC #### [facility] [address] [address] [address] Pratibha Stevenson Potassium [Moles/Vol] 3.8 mmol/L Normal 3.5-5.1 [facility] Comment on above: Performed By: #### C BC #### [facility] [address] [address] [address] Pratibha Stevenson Protein [Mass/Vol] 5.7 g/dL Critically low 6.4-8.2 [facility] Comment on above: Performed By: #### C BC #### [facility] [address] [address] [address] Pratibha Stevenson Sodium [Moles/Vol] 140 mmol/L Normal 136-145 [facility] Comment on above: Performed By: #### C BC #### [facility] [address] [address] [address] Pratibha Stevneson Urea nitrogen [Mass/Vol] 12.0 mg/dL Normal 7.0-18.0 [facility] Comment on above: Performed By: #### C BC #### [facility] [address] [address] [address] Pratibha Stevenson Urea nitrogen/Creatinine [Mass ratio] 10.3 mg/mg Normal [facility] Comment on above: Performed By: #### C BC #### [facility] [address] [address] [address] Pratibha Stevenson XR KUB 1 VIEWon [...] EDIS HERNÁNDEZ Date: 2022-05-09 05:31 Normal [facility] CBC AUTO DIFFon 05-08-2022 BASO # 0.1 103/ul Normal 0.0-0.1 [facility] Comment on above: Performed By: #### C BC #### [facility] [address] [address] [address] Pratibha Stevenson Basophils/100 WBC (Bld) 0.4 % Normal 0.2-2.0 [facility] Comment on above: Performed By: #### C BC #### [facility] [address] [place] [address] Dr. Pratibha Stevenson EO # 0.1 103/ul Normal 0.0-0.7 [facility] Comment on above: Performed By: #### C BC #### [facility] [address] [address] [address] Pratibha Stevenson Eosinophils/100 WBC (Bld) 1.0 % Normal 0.9-7.0 [facility] Comment on above: Performed By: #### C BC #### [facility] [address] [place] [address] Dr. Pratibha Stevenson Erythrocyte distribution width (RBC) [Ratio] 11.9 % Normal 11.0-15.0 [facility] Comment on above: Performed By: #### C BC #### [facility] [address] [place] [address] Dr. Pratibha Stevenson Hematocrit (Bld) [Volume fraction] 47.4 % Normal 42.0-54.0 [facility] Comment on above: Performed By: #### C BC #### [facility] [address] [place] [address] Dr. Pratibha Stevenson Hemoglobin (Bld) [Mass/Vol] 17.3 g/dL Normal 14.0-18.0 [facility] Comment on above: Performed By: #### C BC #### [facility] [address] [address] [address] Pratibha Stevenson IG # 0.05 10e3/ul Critically high 0.00-0.03 [facility] Comment on above: Performed By: #### C BC #### [facility] [address] [place] [address] Dr. Pratibha Stevenson IG % 0.4 % Normal 0.0-0.5 [facility] Comment on above: Performed By: #### C BC #### [facility] [address] [place] [address] Dr. Pratibha Stevenson LYMPH # 2.4 103/ul Normal 1.2-3.8 [facility] Comment on above: Performed By: #### C BC #### [facility] [address] [place] [address] Dr. Pratibha Stevenson Lymphocytes/100 WBC (Bld) 18.6 % Critically low 20.5-60.0 [facility] Comment on above: Performed By: #### C BC #### [facility] [address] [place] [address] Dr. Pratibha Stevenson MANUAL DIFF REQ NO Normal [facility] Comment on above: Performed By: #### C BC #### [facility] [address] [place] [address] Dr. Pratibha Stevenson MCH (RBC) [Entitic mass] 31.3 pg Normal 25.9-34.0 [facility] Comment on above: Performed By: #### C BC #### [facility] [address] [place] [address] Dr. Pratibha Stevenson MCHC (RBC) [Mass/Vol] 36.5 g/dL Critically high 29.9-35.2 [facility] Comment on above: Performed By: #### C BC #### [facility] [address] [place] [address] Dr. Pratibha Stevenson MCV (RBC) [Entitic vol] 85.7 fL Normal 80.0-94.0 [facility] Comment on above: Performed By: #### C BC #### [facility] [address] [place] [address] Dr. Pratibha Stevenson MONO # 0.6 103/ul Normal 0.3-0.8 [facility] Comment on above: Performed By: #### C BC #### [facility] [address] [place] [address] Dr. Pratibha Stevenson Monocytes/100 WBC (Bld) 5.0 % Normal 1.7-12.0 [facility] Comment on above: Performed By: #### C BC #### [facility] [address] [place] [address] Dr. Pratibha Stevenson NEUT # 9.6 103/ul Critically high 1.4-6.5 [facility] Comment on above: Performed By: #### C BC #### [facility] [address] [place] [address] Dr. Pratibha Stevenson Neutrophils/100 WBC (Bld) 74.6 % Normal 43.0-75.0 [facility] Comment on above: Performed By: #### C BC #### [facility] [address] [place] [address] Dr. Pratibha Stevenson Platelet mean volume (Bld) [Entitic vol] 9.6 fL Normal 9.5-13.5 [facility] Comment on above: Performed By: #### C BC #### [facility] [address] [place] [address] Dr. Pratibha Stevenson PLT 286 103/ul Normal 150-450 [facility] Comment on above: Performed By: #### C BC #### [facility] [address] [place] [address] Dr. Pratibha Stevenson RBC 5.53 106/ul Normal 4.70-6.10 [facility] Comment on above: Performed By: #### C BC #### [facility] [address] [place] [address] Dr. Pratibha Stevenson WBC 12.8 103/ul Critically high 4.0-11.0 [facility] Comment on above: Performed By: #### C BC #### [facility] [address] [place] [address] ABD/PELV W CONon 05-08-[address] ABD/PELV W CON EXAM: CT ABD/PELV [...] CHAGO ROLLINS Date: 2022-05-08 18:37 Normal [facility]on SARS-CoV-2 (COVID-19) RNA MARIKA+probe Ql (Unsp spec) Not detected Normal NOT DETECTED [facility] Comment on above: Result Comment: When diagnostic [...] for this test is supported by the Planning Management It Specialist of Health and Human Service's declaration that [...] used). Performed By: #### C BC #### [facility] [address] [place] [address] Dr. Pratibha Stevenson ER URINE PROFILEon 3 Bilirubin Ql (U) SMALL Abnormal NEGATIVE [facility] Comment on above: Performed By: #### C BC #### [facility] [address] [place] [address] Dr. Pratihba Stevenson Clarity (U) CLEAR Normal CLEAR [facility] Comment on above: Performed By: #### C BC #### [facility] [address] [place] [address] Dr. Pratibha Stevenson Color (U) DK. ORANGE Abnormal YELLOW [facility] Comment on above: Performed By: #### C BC #### [facility] [address] [place] [address] Dr. Pratibha Stevenson ERURanjan A micrscopic examination will be performed if indicated. Normal [facility] Comment on above: Performed By: #### C BC #### [facility] [address] [place] [address] Dr. Pratibha Stevenson Glucose Ql (U) Negative Normal NEGATIVE [facility] Comment on above: Performed By: #### C BC #### [facility] [address] [place] [address] Dr. Pratibha Stevenson Hemoglobin Ql (U) LARGE Abnormal NEGATIVE [facility] Comment on above: Performed By: #### C BC #### [facility] [address] [place] [address] Dr. Pratibha Stevenson Ketones Ql (U) TRACE Abnormal NEGATIVE [facility] Comment on above: Performed By: #### C BC #### [facility] [address] [place] [address] Dr. Pratibha Stevenson LEUKOCYTES Negative Normal NEGATIVE [facility] Comment on above: Performed By: #### C BC #### [facility] [address] [place] [address] Dr. Pratibha Stevenson Nitrite Ql (U) Negative Normal NEGATIVE [facility] Comment on above: Performed By: #### C BC #### [facility] [address] [place] [address] Dr. Pratibha Stevenson pH (U) 6.5 [pH] Normal 5-9 [facility] Comment on above: Performed By: #### C BC #### [facility] [address] [place] [address] Dr. Pratibha Stevenson Protein (U) [Mass/Vol] 100 mg/dL Abnormal NEGATIVE/ TRACE [facility] Comment on above: Performed By: #### C BC #### [facility] [address] [place] [address] Dr. Pratibha Stevenson SPEC GRAVITY 1.010 Normal 1.005-<=1.025 [facility] Comment on above: Performed By: #### C BC #### [facility] [address] [place] [address] Dr. Pratibha Stevenson UR MICRO IND INDICATED Normal [facility] Comment on above: Performed By: #### C BC #### [facility] [address] [place] [address] Dr. Pratibha Stevenson Urobilinogen Qn (U) 1.0 {Butch'U}/dL Normal 0.2 - 1. 0 [facility] Comment on above: Performed By: #### C BC #### [facility] [address] [place] [address] Dr. Pratibha Stevenson LIPASEon 05-08-2022 Lipase [Catalytic activity/Vol] 417.0 U/L Critically high 73.0-393.0 [facility] Comment on above: Performed By: #### L ACT #### [facility] [address] [address] [address] Pratibha Stevenson PROF 14(COMP METB)on 023 Albumin [Mass/Vol] 4.5 g/dL Normal 3.4-5.0 [facility] Comment on above: Performed By: #### L ACT #### [facility] [address] [place] [address] Dr. Pratibha Stevenson Albumin/Globulin [Mass ratio] 1.3 {ratio} Normal [facility] Comment on above: Performed By: #### L ACT #### [facility] [address] [place] [address] Dr. Pratibha Stevenson ALP [Catalytic activity/Vol] 97 U/L Normal 46-116 [facility] Comment on above: Performed By: #### L ACT #### [facility] [address] [place] [address] Dr. Pratibha Stevenson ALT [Catalytic activity/Vol] 35 U/L Normal 16-63 [facility] Comment on above: Performed By: #### L ACT #### [facility] [address] [place] [address] Dr. Pratibha Stevenson Anion gap [Moles/Vol] 13.7 mmol/L Normal [facility] Comment on above: Performed By: #### L ACT #### [facility] [address] [place] [address] Dr. Pratibha Stevenson AST [Catalytic activity/Vol] 22 U/L Normal 15-37 [facility] Comment on above: Performed By: #### L ACT #### [facility] [address] [place] [address] Dr. Pratibha Stevenson Bilirubin [Mass/Vol] 0.7 mg/dL Normal 0.2-1.0 [facility] Comment on above: Performed By: #### L ACT #### [facility] [address] [place] [address] Dr. Pratibha Stevenson Calcium [Mass/Vol] 9.6 mg/dL Normal 8.5-10.1 [facility] Comment on above: Performed By: #### L ACT #### [facility] [address] [address] [address] Pratibha Stevenson Chloride [Moles/Vol] 99 mmol/L Normal 98-107 [facility] Comment on above: Performed By: #### L ACT #### [facility] [address] [address] [address] Pratibha Stevenson CO2 [Moles/Vol] 29.0 mmol/L Normal 21.0-32.0 [facility] Comment on above: Performed By: #### L ACT #### [facility] [address] [address] [address] Pratibha Stevenson Creatinine [Mass/Vol] 1.43 mg/dL Critically high 0.70-1.30 [facility] Comment on above: Performed By: #### L ACT #### [facility] [address] [address] [address] Pratibha Stevenson EGFR-AF FRENCH >60 Normal >=60 [facility] Comment on above: Performed By: #### L ACT #### [facility] [address] [address] [address] Pratibha Stevenson EGFR-NON AF FRENCH 58 mL/min/1.73m2 Critically low >=60 [facility] Comment on above: Performed By: #### L ACT #### [facility] [address] [address] [address] Pratibha Stevenson Globulin (S) [Mass/Vol] 3.5 g/dL Normal [facility] Comment on above: Performed By: #### L ACT #### [facility] [address] [address] [address] Pratibha Stevenson Glucose [Mass/Vol] 127 mg/dL Critically high 74-106 [facility] Comment on above: Performed By: #### L ACT #### [facility] [address] [address] [address] Pratibha Stevenson Potassium [Moles/Vol] 3.7 mmol/L Normal 3.5-5.1 [facility] Comment on above: Performed By: #### L ACT #### [facility] [address] [address] [address] Pratibha Stevenson Protein [Mass/Vol] 8.0 g/dL Normal 6.4-8.2 [facility] Comment on above: Performed By: #### L ACT #### [facility] [address] [address] [address] Pratibha Stevenson Sodium [Moles/Vol] 138 mmol/L Normal 136-145 [facility] Comment on above: Performed By: #### L ACT #### [facility] [address] [place] [address] Dr. Pratibha Stevenson Urea nitrogen [Mass/Vol] 13.0 mg/dL Normal 7.0-18.0 [facility] Comment on above: Performed By: #### L ACT #### [facility] [address] [place] [address] Dr. Pratibha Stevenson Urea nitrogen/Creatinine [Mass ratio] 9.1 mg/mg Normal [facility] Comment on above: Performed By: #### L ACT #### [facility] [address] [place] [address] Dr. Pratibha Stevenson URINE MICROSCOPIC ONLYon BACTERIA NONE SEEN Normal NONE SEEN [facility] Comment on above: Performed By: #### C BC #### [facility] [address] [place] [address] Dr. Pratibha Stevenson Bacteria identified Cx Nom (U) NOT INDICATED Normal [facility] Comment on above: Performed By: #### C BC #### [facility] [address] [place] [address] Dr. Pratibha Stevenson CAST NONE SEEN Normal NONE SEEN [facility] Comment on above: Performed By: #### C BC #### [facility] [address] [place], [place] [id number] Dr. Pratibha Stevenson Crystals LM Nom (Urine sed) NONE SEEN Normal NONE SEEN [facility] Comment on above: Performed By: #### C BC #### [facility] [address] [place] [address] Dr. Pratibha Stevenson Epithelial cells LM Ql (Urine sed) FEW Abnormal NONE SEEN /RARE [facility] Comment on above: Performed By: #### C BC #### [facility] [address] [address] [address] Pratibha Stevenson MUCOUS TRACE Abnormal NONE SEEN [facility] Comment on above: Performed By: #### C BC #### [facility] [address] [place] [address] Dr. Pratibha Stevenson RBC (U) [#/Vol] /uL Abnormal 0-2 [facility] Comment on above: Performed By: #### C BC #### [facility] [address] [place] [address] Dr. Pratibha Stevenson WBC 2-5 Abnormal NONE SEEN [facility] Comment on above: Performed By: #### C BC #### [facility] [address] [place] [address] Dr. Pratibha Stevenson XR CHEST 1 Von [...] RAMO ZEPEDA Date: 2022-05-08 17:40 Normal [facility] CBC AUTO DIFFon 03-23-2022 BASO # 0.1 103/ul Normal 0.0-0.1 [facility] Comment on above: Performed By: #### C BC #### [facility] [address] [place] [address] Dr. Pratibha Stevenson Basophils/100 WBC (Bld) 0.9 % Normal 0.2-2.0 [facility] Comment on above: Performed By: #### C BC #### [facility] [address] [place] [address] Dr. Pratibha Stevenson EO # 0.1 103/ul Normal 0.0-0.7 [facility] Comment on above: Performed By: #### C BC #### [facility] [address] [place] [address] Dr. Pratibha Stevenson Eosinophils/100 WBC (Bld) 1.7 % Normal 0.9-7.0 [facility] Comment on above: Performed By: #### C BC #### [facility] [address] [place] [address] Dr. Pratibha Stevenson Erythrocyte distribution width (RBC) [Ratio] 12.3 % Normal 11.0-15.0 [facility] Comment on above: Performed By: #### C BC #### [facility] [address] [place] [address] Dr. Pratibha Stevenson Hematocrit (Bld) [Volume fraction] 47.2 % Normal 42.0-54.0 [facility] Comment on above: Performed By: #### C BC #### [facility] [address] [place] [address] Dr. Pratibha Stevenson Hemoglobin (Bld) [Mass/Vol] 16.0 g/dL Normal 14.0-18.0 [facility] Comment on above: Performed By: #### C BC #### [facility] [address] [place] [address] Dr. Pratibha Stevenson IG # 0.03 10e3/ul Normal 0.00-0.03 [facility] Comment on above: Performed By: #### C BC #### [facility] [address] [place] [address] Dr. Pratibha Stevenson IG % 0.4 % Normal 0.0-0.5 [facility] Comment on above: Performed By: #### C BC #### [facility] [address] [place] [address] Dr. Pratibha Stevenson LYMPH # 2.5 103/ul Normal 1.2-3.8 [facility] Comment on above: Performed By: #### C BC #### [facility] [address] [place] [address] Dr. Pratibha Stevenson Lymphocytes/100 WBC (Bld) 30.4 % Normal 20.5-60.0 [facility] Comment on above: Performed By: #### C BC #### [facility] [address] [place] [address] Dr. Pratibha Stevenson MANUAL DIFF REQ NO Normal [facility] Comment on above: Performed By: #### C BC #### [facility] [address] [address] [address] Pratibha Stevenson MCH (RBC) [Entitic mass] 30.9 pg Normal 25.9-34.0 [facility] Comment on above: Performed By: #### C BC #### [facility] [address] [place] [address] Dr. Pratibha Stevenson MCHC (RBC) [Mass/Vol] 33.9 g/dL Normal 29.9-35.2 [facility] Comment on above: Performed By: #### C BC #### [facility] [address] [place] [address] Dr. Pratibha Stevenson MCV (RBC) [Entitic vol] 91.3 fL Normal 80.0-94.0 [facility] Comment on above: Performed By: #### C BC #### [facility] [address] [place] [address] Dr. Pratibha Stevenson MONO # 0.6 103/ul Normal 0.3-0.8 [facility] Comment on above: Performed By: #### C BC #### [facility] [address] [place] [address] Dr. Pratibha Stevenson Monocytes/100 WBC (Bld) 7.6 % Normal 1.7-12.0 [facility] Comment on above: Performed By: #### C BC #### [facility] [address] [place] [address] Dr. Pratibha Stevenson NEUT # 4.8 103/ul Normal 1.4-6.5 [facility] Comment on above: Performed By: #### C BC #### [facility] [address] [place] [address] Dr. Pratibha Stevenson Neutrophils/100 WBC (Bld) 59.0 % Normal 43.0-75.0 [facility] Comment on above: Performed By: #### C BC #### [facility] [address] [place] [address] Dr. Pratibha Stevenson Platelet mean volume (Bld) [Entitic vol] 10.2 fL Normal 9.5-13.5 [facility] Comment on above: Performed By: #### C BC #### [facility] [address] [place], [place] [address] Dr. Pratibha Stevenson PLT 258 103/ul Normal 150-450 [facility] Comment on above: Performed By: #### C BC #### [facility] [address] [place], [place] [address] Dr. Pratibha Stevenson RBC 5.17 106/ul Normal 4.70-6.10 [facility] Comment on above: Performed By: #### C BC #### [facility] [address], [place] [address] Dr. Pratibha Stevenson WBC 8.1 103/ul Normal 4.0-11.0 [facility] Comment on above: Performed By: #### C BC #### [facility] [address], [place] [address] ABD/PELVIS WO CONon [...] SHARON GODINEZ Date: 2022-03-22 23:40 Normal [facility] PROF 14(COMP METB)on 022 Albumin [Mass/Vol] 4.2 g/dL Normal 3.4-5.0 [facility] Comment on above: Performed By: #### L ACT #### [facility] [address] [place] [address] Dr. Pratibha Stevenson Albumin/Globulin [Mass ratio] 1.2 {ratio} Normal [facility] Comment on above: Performed By: #### L ACT #### [facility] [address] [address] [address] Pratibha Stevenson ALP [Catalytic activity/Vol] 84 U/L Normal 46-116 [facility] Comment on above: Performed By: #### L ACT #### [facility] [address] [place] [address] Dr. Pratibha Stevenson ALT [Catalytic activity/Vol] 32 U/L Normal 16-63 [facility] Comment on above: Performed By: #### L ACT #### [facility] [address] [place] [address] Dr. Pratibha Stevenson Anion gap [Moles/Vol] 10.6 mmol/L Normal [facility] Comment on above: Performed By: #### L ACT #### [facility] [address] [place] [address] Dr. Pratibha Stevenson AST [Catalytic activity/Vol] 18 U/L Normal 15-37 [facility] Comment on above: Performed By: #### L ACT #### [facility] [address] [place] [address] Dr. Pratibha Stevenson Bilirubin [Mass/Vol] 0.4 mg/dL Normal 0.2-1.0 [facility] Comment on above: Performed By: #### L ACT #### [facility] [address] [place] [address] Dr. Pratibha Stevenson Calcium [Mass/Vol] 9.8 mg/dL Normal 8.5-10.1 [facility] Comment on above: Performed By: #### L ACT #### [facility] [address] [place] [address] Dr. Pratibha Stevenson Chloride [Moles/Vol] 103 mmol/L Normal 98-107 [facility] Comment on above: Performed By: #### L ACT #### [facility] [address] [address] [address] Pratibha Stevenson CO2 [Moles/Vol] 28.2 mmol/L Normal 21.0-32.0 [facility] Comment on above: Performed By: #### L ACT #### [facility] [address] [address] [address] Pratibha Stevenson Creatinine [Mass/Vol] 1.24 mg/dL Normal 0.70-1.30 [facility] Comment on above: Performed By: #### L ACT #### [facility] [address] [place] [address] Dr. Pratibha Stevenson EGFR-AF FRENCH >60 Normal >=60 [facility] Comment on above: Performed By: #### L ACT #### [facility] [address] [place] [address] Dr. Pratibha Stevenson EGFR-NON AF FRENCH >60 Normal >=60 [facility] Comment on above: Performed By: #### L ACT #### [facility] [address] [place] [address] Dr. Pratibha Stevenson Globulin (S) [Mass/Vol] 3.6 g/dL Normal [facility] Comment on above: Performed By: #### L ACT #### [facility] [address] [place] [address] Dr. Pratibha Stevenson Glucose [Mass/Vol] 102 mg/dL Normal 74-106 [facility] Comment on above: Performed By: #### L ACT #### [facility] [address] [place] [address] Dr. Pratibha Stevenson Potassium [Moles/Vol] 3.8 mmol/L Normal 3.5-5.1 [facility] Comment on above: Performed By: #### L ACT #### [facility] [address] [address] [address] Pratibha Stevenson Protein [Mass/Vol] 7.8 g/dL Normal 6.4-8.2 [facility] Comment on above: Performed By: #### L ACT #### [facility] [address] [address] [address] Pratibha Stevenson Sodium [Moles/Vol] 138 mmol/L Normal 136-145 [facility] Comment on above: Performed By: #### L ACT #### [facility] [address], [place] [address] Dr. Pratibha Stevenson Urea nitrogen [Mass/Vol] 18.0 mg/dL Normal 7.0-18.0 [facility] Comment on above: Performed By: #### L ACT #### [facility] [address] [address] [address] Pratibha Stevenson Urea nitrogen/Creatinine [Mass ratio] 14.5 mg/mg Normal [facility] Comment on above: Performed By: #### L ACT #### [facility] [address] [address] [address] Pratibha Stevenson Vital Signs Date Time Vital Sign Value Performing Clinician Faci lity 03-02-2024 11:02-0400 Body temperature 98.8 [degF] [facility] 03-02-2024 11:02-0400 Diastolic blood pressure 72 mm[Hg] [facility]idal MD [facility] 03-02-2024 11:02-0400 Heart rate 83 /min [facility] 03-02-2024 11:02-0400 Respiratory rate 16 /min [facility]idal MD [facility] 03-02-2024 11:02-0400 SaO2% (BldA) [Mass fraction] 98 % [facility]ym [facility]idal MD [facility] 03-02-2024 11:02-0400 Systolic blood pressure 120 mm[Hg] [facility]idal MD [facility] 03-01-2024 03:44-0400 Body mass index (BMI) [Ratio] 31.82 kg/m2 Kym Vidal MD Work Phone: [facility] 03-01-2024 03:44-0400 Body weight 97.75 kg Kym Vidal MD Work Phone: [facility] 02-27-2024 00:30-0400 Body height 175.3 cm Kym Vidal MD Work Phone: [facility] 07-21-2022 08:57-0400 Blood Pressure Location Shirley Lue [facility] 07-21-2022 08:57-0400 Diastolic blood pressure 69 mm[Hg] Shirley Lue [facility] 07-21-2022 08:57-0400 Heart rate 74 /min Shirley Lue [facility] 07-21-2022 08:57-0400 Systolic blood pressure 133 mm[Hg] Shirley Lue [facility] 07-13-2022 09:17-0400 Blood Pressure Location Shirley Lue [facility] 07-13-2022 09:17-0400 Diastolic blood pressure 68 mm[Hg] Shirley Lue [facility] 07-13-2022 09:17-0400 Heart rate 73 /min Shirley Lue [facility] 07-13-2022 09:17-0400 Systolic blood pressure 124 mm[Hg] Shirley Lue [facility] Encounters Encounter Date Encounter Type Care Provider Facility Start: 02-27-2024 End: 03-02-2024 Evaluation and management of inpatient Kym Vidal MD Work Phone: [address] Comment on above: Pancytopenia (HCC) ( Primary Dx); Hip pain, unspecified laterality Start: 02-26-2024 End: 02-26-2024 Emergency department patient visit DOLORES REYES [facility] Start: 06-14-2023 End: 06-14-2023 amb[facility] Start: 06-14-2023 End: 06-14-2023 Subsequent hospital visit by physician Manjit Waller [facility] Physical Therapy Comment on above: Arrived Start: 06-12-2023 End: 06-12-2023 ambulatory [facility] Start: 06-12-2023 End: 06-12-2023 Subsequent hospital visit by physician Manjit Waller [facility] Physical Therapy Comment on above: Arrived Start: 06-09-2023 End: 06-09-2023 ambulatory [facility] Start: 06-09-2023 End: 06-09-2023 Subsequent hospital visit by physician Flash Goodwin PTA [facility] Physical Therapy Comment on above: Arrived Start: 06-05-2023 End: 06-05-2023 ambulatory [facility] Start: 05-31-2023 End: 05-31-2023 ambulatory [facility] Start: 05-29-2023 End: 05-29-2023 ambulatory [facility] Start: 05-26-2023 End: 05-26-2023 ambulatory [facility] Start: 05-22-2023 End: 05-22-2023 ambulatory [facility] Start: 05-17-2023 End: 05-17-2023 ambulatory [facility] Start: 03-13-2023 End: 03-13-2023 ambulatory [facility] Start: 08-11-2022 End: 08-11-[address] ALTRICIA GARCIA . Facility: Start: 07-22-2022 End: 07-23-[address] LATRICIA GARCIA . Facility: Start: 07-21-2022 End: 07-22-2022 ambulatory Shirley Nikolai Handy Facility: [facility] Start: 07-21-2022 End: 07-21-2022 Patient encounter procedure Shirley Murrell [facility] Start: 07-20-2022 End: 07-20-[address] LATRICIA GARCIA . Facility: Start: 07-13-2022 End: 07-14-2022 ambulatory Shirley M. Jollylala Facility:[facility] Start: 07-13-2022 End: 07-13-2022 Patient encounter procedure Shirley Murrell [facility] Start: 07-06-2022 End: 07-07-2022 ambulatory SHIRLEY M JOLLYLala . Facility: Start: 05-23-2022 End: 05-24-2022 ambulatory Shirleymaria del rosario Murrell Facility[facility] Start: 05-23-2022 End: 05-23-2022 Patient encounter procedure Shirley Murrell [facility] Start: 05-11-2022 End: 05-12-2022 ambulatory Shirley ZionJoselin Murrell Facility:[id number] Start: 05-08-2022 End: 05-12-[address] LATRICIA GARCIA . Facility: Start: 03-23-2022 End: 03-23-[address] LATRICIA GARCIA . Facility: Procedures Date Procedure Procedure Detail Performing Clinician Start: 03-02-2024 Rhythm ecg 1-3 leads w/interpretation & report Unknown Provider Result Start: 03-02-2024 Anion gap [Moles/Vol] Maureen degroot DO Work Phone: Start: 03-02-2024 Basic metabolic panel calcium total Maureen Hampton DO Work Phone: Start: 03-02-2024 GLOMERULAR FILTRATION RATE, ESTIMATED Maureen Hampton DO Work Phone: Start: 03-02-2024 SCAN OF BLOOD SMEAR Jenny Alvarez [facility] Work Phone: Start: 03-01-2024 Rhythm ecg 1-3 leads w/interpretation & report Unknown Provider Result Start: 03-01-2024 MYELOID MALIGNANCIES MUTATION PANEL Ruth Wyman MD Work Phone: Start: 03-01-2024 Diagnostic bone marrow biopsies Jenny Alvarez [facility] Work Phone: Start: 03-01-2024 Rhythm ecg 1-3 leads w/interpretation & report Unknown Provider Result Start: 03-01-2024 Blood count complete auto&auto difrntl wbc Jenny Alvarez [facility] Work Phone: Start: 03-01-2024 SCAN OF BLOOD SMEAR Jenny Alvarez [facility] Work Phone: Start: 02-29-2024 End: 02-29-2024 Ecg routine ecg w/least 12 lds i&r only Ruth Wyman MD Work Phone: Start: 02-29-2024 Blood smear peripheral interp phys w/writ report [facility] Work Phone: Start: 02-29-2024 DIAGNOSTIC QUAL BCR-ABL1 ASSAY W REFLEX TO P190 OR P210 QUANT ASSAYS Jenny Alvarez [facility] Work Phone: Start: 02-29-2024 Calcium ionized Maureen Wei Leidy D O Work Phone: Start: 02-29-2024 Anion gap [Moles/Vol] Chapis Rizvi MD Work Phone: Start: 02-29-2024 Basic metabolic panel calcium total Chapis Rizvi MD Work Phone: Start: 02-29-2024 GLOMERULAR FILTRATION RATE, ESTIMATED Chapis Rizvi MD Work Phone: Start: 02-29-2024 Hepatic function panel Ruth Wyman MD Work Phone: Start: 02-29-2024 SCAN OF BLOOD SMEAR Chapis Rizvi MD Work Phone: Start: 02-28-2024 Ecg routine ecg w/least 12 lds trcg only w/o i&r Ruth Wyman MD Work Phone: Start: 02-28-2024 FRANCES VARNER VIRUS (EBV) ANTIBODY PANEL I Yasmin Ambrosio [employer] INTERN [employer] Work Phone: Start: 02-28-2024 Mri brain brain stem w/o w/contrast material Jenny Gunter MUSIC INTERN - [employer] Work Phone: Start: 02-28-2024 End: 02-28-2024 Ecg routine ecg w/least 12 lds trcg only w/o i&r Ruth Wyman MD Work Phone: Start: 02-28-2024 Influenza virus A and B RNA and SARS-CoV-2 (COVID-19) N gene panel - Respiratory specimen by MARIKA with probe detection Chapis Rizvi MD Work Phone: Start: 02-28-2024 Antibody hiv-1&hiv-2 single result Chapis Rizvi MD Work Phone: Start: 02-28-2024 Anion gap [Moles/Vol] Jenny Russoters MUSIC INTERN - DECAL[employer] Work Phone: Start: 02-28-2024 GLOMERULAR FILTRATION RATE, ESTIMATED Jenny Gunter MUSIC INTERN - DECAL[employer] Work Phone: Start: 02-28-2024 Lactate dehydrogenase ldh Ruth Wyman MD Work Phone: Start: 02-27-2024 VITAMIN B12 & FOLATE Yasmin Ambrosio MUSIC INTERN - DECAL[employer] Work Phone: Start: 02-27-2024 EEG 24 HOUR AMBULATORY Jenny Gunter MUSIC INTERN - DECAL[employer] Work Phone: Start: 02-27-2024 Electroencephalogram w/rec awake&asleep Jenny Russoters MUSIC INTERN - DECAL[employer] Work Phone: Start: 02-27-2024 End: 02-27-2024 C-reactive protein Barak Colon MD Work Phone: Start: 02-27-2024 End: 02-27-2024 Calcium ionized Jenny Beavers Lyric AP RN - DECALER Work Phone: Start: 02-27-2024 REFERENCE LAB SAMPLE Jennysona Gunter A PRN - DECALER Work Phone: Start: 02-27-2024 Urnls dip stick/tablet reagent auto microscopy Jenny Beavers [employer]ric MUSIC INTERN - [employer] Work Phone: Start: 02-27-2024 End: 02-27-2024 Rhythm ecg 1-3 leads w/interpretation & report Unknown Provider Result Start: 05-23-2022 Cystoscopic removal of ureteric stent Shirley Murrell Start: 05-08-2022 Cystoscopic laser lithotripsy of ureteric calculus Shirley Murrell Plan of Treatment Date Care Activity Detail Author Start: 04-01-2024 End: 03-02-2025 Vitamin B12 & Folate Vitamin B12 & Folate Lab Routine Pancytopenia (HCC) Expected: 04/01/2024 (Approximate), Expires: 03/02/2025 [employer] Comment on above: Expected: 04/01/2024 (Approximate), Expires: 03/02/2025 Start: 03-02-2024 End: 03-02-2025 CBC panel - Blood by Automated count CBC Lab Routine Pancytopenia (HCC) Expected: 03/02/2024 (Approximate), Expires: 03/02/2025 [employer] Comment on above: Expected: 03/02/2024 (Approximate), Expires: 03/02/2025 Start: 12-31-2023 COVID-19 Vaccine () COVID-19 Vaccine () [facility] Start: 11-30-2023 Influenza vaccination Flu vaccine (# 1) [employer] Start: 06-26-2023 End: 06-26-2023 Patient encounter procedure 06/26/2023 2:30 PM EST Appointment [facility] Physical Therapy [address] [place] [phone] Manjit Waller [facility] Physical Therapy Start: 06-23-2023 End: 06-23-2023 Patient encounter procedure 06/23/2023 1:45 PM EST Appointment [facility] Physical Therapy [address] [place] [phone] Flash Goodwin PTA [facility] Physical Therapy Start: 06-19-2023 End: 06-19-2023 Patient encounter procedure 06/19/2023 3:15 PM EST Appointment [facility] Physical Therapy [address] [place] [phone] Manjit Waller [facility] Physical Therapy Start: 06-14-2023 End: 06-14-2023 Patient encounter procedure 06/14/2023 3:30 PM EST Appointment [facility] Physical Therapy [address] [place] [phone] Manjit Waller [facility] Physical Therapy Start: 06-12-2023 End: 06-12-2023 Patient encounter procedure 06/12/2023 3:15 PM EST Appointment [facility] Physical Therapy [address] [place] [phone] Manjit Waller [facility] Physical Therapy Start: 11-29-2022 Influenza vaccination Flu vaccine (# 1) [facility] Start: 2010 Hepatitis C screening Hepatitis C sc reen [facility] Start: 08-18-2007 HIV screening HIV screen [facility] Start: 2005 Varicella vaccine (1 of 2 - 13+ 2-dose series) Varicella vaccine (1 of 2 - 13+ 2-dose series) [facility] Start: 2004 Depression Screen Depression Screen [facility] Start: 08-18-2003 DTaP/Tdap/Td vaccine (6 - Tdap) DTaP/Tdap/Td vaccine (6 - Tdap) [facility] Start: 1998 Pneumococcal 0-64 ye ars Vaccine (1 of 2 - PCV) Pneumococcal 0-64 years Vaccine (1 of 2 - PCV) [facility] Start: 1993 Varicella vaccine (1 of 2 - 2-dose childhood series) Varicella vaccine (1 of 2 - 2-dose childhood series) [facility] Start: 02-16-1993 COVID-19 Vaccine (#1) COVID-19 Vacci ne (#1) [facility] End: 03-03-2024 CBC W Auto Differential panel - Blood CBC with Auto Differential Lab Routine Daily for 3 Days starting 03/01/2024 until 03/03/2024, 2 completed [facility] Comment on above: Daily for 3 Days sta rting 03/01/2024 until 03/03/2024, 2 completed End: 03-01-2024 Chromosome analysis, bone marrow [facility] Comment on above: Once for 1 Occurrenc es starting 03/01/2024 until 03/01/2024 Diagnostic Qual BCR- ABL1 Assay w Reflex to p190 or p210 Quant Assaysantitative Assays Diagnostic Qual BCR-ABL1 Assay w Reflex to p190 or p210 Quant Assaysantitative Assays Lab Routine 02/29/2024 5:30 PM EDT [facility] End: 02-29-2024 Flow Cytometry Leukemia/Lymphoma, Bone Marrow Flow Cytometry Leukemia/Lymphoma, Bone Marrow Lab Routine One Time for 1 Occurrences starting 02/29/2024 until 02/29/2024 [facility] Comment on above: One Time for 1 Occur rences starting 02/29/2024 until 02/29/2024 End: 03-01-2024 Flow Cytometry Leukemia/Lymphoma, Bone Marrow [facility] Comment on above: Once for 1 Occurrenc es starting 03/01/2024 until 03/01/2024 End: 03-02-2024 Leukemia / lymphoma phenotype [facility] Work Phone: Comment on above: One Time for 1 Occur rences starting 03/02/2024 until 03/02/2024 End: 03-01-2024 Myeloid Malignancies Mutation Panel [facility] Comment on above: One Time for 1 Occur rences starting 03/01/2024 until 03/01/2024 Oxygen therapy [[facility] Data Set] Initiate Oxygen Therapy Protocol Respiratory Care Routine As Needed until discontinued starting 02/27/2024 [facility] Work Phone: Comment on above: As Needed until disc ontinued starting 02/27/2024 Immunizations Immunization Date Immunization Notes Care Provider Khushbu thao 12-26-1997 DTaP, unspecified formulation Shirley Lue [facility] 12-26-1997 measles, mumps and rubella virus vaccine Shirley Lue [facility] 01-10-1994 DTaP, unspecified formulation Shirley Lue [facility] 01-10-1994 hepatitis B vaccine, pediatric or pediatric/adolescent dosage Shirley Lue [facility] 01-10-1994 Hib, unspecified formulation Shirley Lue [facility] 01-10-1994 measles, mumps and rubella virus vaccine Shirley Lue [facility] 03-12-1993 Hib, unspecified formulation Shirley Lue [facility] 01-01-1993 hepatitis B vaccine, pediatric or pediatric/adolescent dosage Shirley Lue [facility] 01-01-1993 Hib, unspecified formulation Shirley Lue [facility] 1992 hepatitis B vaccine, pediatric or pediatric/adolescent dosage Shirley Lue [facility] 1992 Hib, unspecified formulation Shirley Lue [facility] Payers Date Payer Category Payer Unknown [id number] 2.16.8 [id number] 1992 Unknown [id number] 2.16.8 [id number] 1992 Unknown [id number] 2.16.8 [id number] 1992 Unknown [id number] 2.16.8 40.1.729253.3.579.2.727 1992 Unknown [id number] 2.16.84 0.1.158182.3.579.2.593 1992 Unknown [id number] 2.16.84 0.1.012647.3.579.2.593 1992 Unknown [id number] 2.16.84 0.1.138861.3.579.2.593 1992 Unknown [id number] 2.16.84 0.1.241883.3.579.2.593 1992 Unknown [id number] 2.16.84 0.1.851559.3.579.2.593 1992 Unknown [id number] 2.16.84 0.1.355610.3.579.2.593 1992 Unknown [id number] 2.16.8 40.1.645859.3.579.2.173 1992 Unknown [id number] 2.16.8 40.1.110467.3.579.2.173 1992 Unknown [id number] 2.16.8 40.1.259921.3.579.2.173 1992 Unknown [id number] 2.16.8 40.1.329530.3.579.2.173 1992 Unknown [id number] 2.16.8 40.1.673069.3.579.2.173 1992 Unknown [id number] 2.16.8 40.1.987125.3.579.2.173 1992 Unknown [id number] 2.16.8 40.1.276201.3.579.2.173 1992 Unknown [id number] 2.16.8 40.1.760858.3.579.2.173 1992 Unknown [id number] 2.16.8 40.1.854098.3.579.2.173 1992 Unknown [id number] 2.16.8 [id number] 1992 Unknown [id number] 2.16.8 [id number] 1957 Medicaid [id number] 1957 Self-pay [id number] Self-pay Social History Date Type Detail Facility Tobacco smoking status [facility] Start: 02-26-2024 End: 02-27-2024 Sex Assigned At Male [facility] Start: 07-13-2022 End: 07-21-2022 Tobacco smoking status Light tobacco smoker (finding) [facility] Tobacco smoking status Never [facility] [employer] Start: 1992 Sex Assigned At Not on file B ON [employer] Start: 02-26-2024 [facility] History of tobacco use Cigarette Smoker B on [employer] Start: 02-26-2024 Tobacco use and exposure Former smokeless tobacco user [employer] Start: 03-01-2024 Alcoholic beverage intake Ex-drinker (finding) [employer] Start: 02-26-2024 End: 02-27-2024 History of Social function [employer] Has the [employer], [employer], or water [employer] threatened to shut off services in your home in past 12Mo No [employer] (I/We) worried fanta er (my/our) food would run out before (I/we) got money to buy more. Never true [employer] Functional Status Date Assessment Result Facility 07-21-2022 Functional Status N/A [facility] 07-13-2022 Functional Status N/A [facility] 05-12-2022 Functional Status N/A [facility] Clinical Notes 05-26-2022 to 03-02-2024 Daphne Alonzo RN - 03/02/2024 2:01 PM Diana Morales RN - 03/01/2024 9:16 AM Jenny Scott APRN - CNP - 03/01/2024 8:24 AM EDTMaureen Hampton DO - 03/01/2024 8:21 AM EDT Note Date & Type Note Facility 03-02-2024 History of Present illness Narrative Discharge teaching and instructions for diagnosis/procedure of possible new onset seizure completed, pantocytopenia with patient using teachback method. AVS reviewed. Pt's prescriptions that were brought from home were given to patient. Patient voiced understanding regarding prescriptions, follow up appointments, and care of self at home. Discharged in a wheelchair to home with support per family. [place] [facility] TRANSFER - OUT REPORT: Verbal report given to Page CAMARILLO(name) on Ethan Donald being transferred to (unit) for routine progression of patient care Report consisted of patient's Situation, Background, Assessment and Recommendations(SBAR). Information from the following report(s) Nurse Handoff Report, Surgery Report, and MAR was reviewed with the receiving nurse. Opportunity for questions and clarification was provided. Patient transported with: Monitor Received notification from nursing staff that patient's father has delta granule pool deficiency. Dr. Silva notified. Images from the original note were not included. Hospitalist Progress Note Internal Medicine Resident Patient: Ethan Donald 33 y.o. male Unit/Bed: 4A-003-A Admit Date: 02/27/2024 ASSESSMENT AND PLAN Active Problems Pancytopenia: Unclear etiology. Noted family history of pancytopenia. Pancytopenia, 03/01/2024 labs appear stable. Labs (02/29/2024): WBC: 1.5 RBC: 3.98 Hgb: 12.2 Hct: 36.0 MCV: 90.5 Platelet: 89 Iron: 31 TIBC: 199 Ferritin: 1435 Iron Sat: 16 Heme-onc consulted and following. Patient underwent biopsy 03/01/2024 - The following bone marrow biopsy results - Under neutropenic precautions with patient's current WBC levels - Hematology continue to follow - Transfuse per heme-onc recommendation, platelets less than 10 and hemoglobin less than 7. 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 Noted tongue laceration following event. Continuous EEG negative for seizure. Episodes of passing out, has intermittent episodes of right temporal tenderness. Reported passing out episodes likely behavioral component. CTA head and neck outside facility showed no acute intracranial abnormalities. Initially started on Depakote, following this held in the setting of pancytopenia. -Neurology has signed off at this time, no recommendation of AEDs at time of discharge -Patient to follow-up with PCP. Continue seizure precautions. 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 Fibromyalgia: No reported pain at this time. Tobacco use disorder: Continues to smoke. Continue nicotine patch as desired. Complex migraine: Noted right-sided temporal headache. Continue current pain regimen LDA: []CVC / []PICC / []Midline / []Perkins / []Drains / []Mediport / [x]None Antibiotics: No Steroids: No Labs (still needed?): [x]Yes / []No IVF (still needed?): []Yes / [x]No Level of care: [x]Step Down / []Med-Surg Bed Status: [x]Inpatient / []Observation Telemetry: [x]Yes / []No PT/OT: []Yes / [x]No DVT Prophylaxis: [x] Lovenox / [] Heparin / [] SCDs / [] Already on Systemic Anticoagulation / [] None Expected discharge date: TBD Disposition: TBD Code status: Full Code = Chief Complaint: - Seizure like activity Subjective (past 24 hours): Seen evaluated bedside. Status post CT-guided bone marrow biopsy, tolerated well. Denies fever, chills, shortness of breath, difficulty breathing chest abdominal pain nausea or vomiting. Patient states does have some intermittent chills but improved with fan on his face. HPI / Hospital Course: 33-year-old male with PMH pertinent for multiple personality disorder, fibromyalgia, tobacco use disorder who presented to [facility] on 02/27/2024 for evaluation of loss of consciousness. Patient was directly admitted from outside facility. Patient was noted to have seizures while sleeping on 02/23/2024 which did note that he bit his tongue and was witnessed by his . Patient went to his PCP and of note he was diagnosed with sinusitis and was given cephalexin and Zofran. At outside facility patient did report intermittent right-sided temporal pain, visual changes and black spots. He also reports sweating and high blood pressure. Prior to admission no prior history of seizures. Imaging was obtained, CT head and MRI of head showed no acute findings. Neurology has seen and evaluated patient, they have signed off at this time. No plan for antiepileptic medication at time of discharge. Patient was initially started Depakote but was held in the setting of pancytopenia. Due to worsening of pancytopenia oncology was consulted and patient underwent bone marrow biopsy Medications: Infusion Medications sodium chloride Scheduled Medications folic acid 1 mg IntraVENous Daily ferrous sulfate 325 mg Oral BID WC sodium chloride flush 10 mL IntraVENous 2 times per day [Held by provider] enoxaparin 40 mg SubCUTAneous Daily nicotine 1 patch TransDERmal Daily [Held by provider] divalproex 500 mg Oral 2 times per day PRN Meds: calcium gluconate, ketorolac, sodium chloride flush, sodium chloride, potassium chloride OR potassium alternative oral replacement OR [DISCONTINUED] potassium chloride, [Held by provider] magnesium sulfate, ondansetron OR ondansetron, polyethylene glycol, acetaminophen OR acetaminophen, LORazepam Exam: BP 106/72 Pulse 83 Temp 98.2 F (36.8 C) (Oral) Resp 16 Ht 1.753 m (5' 9 ) Wt 97.8 kg (215 lb 8 oz) SpO2 98% BMI 31.82 kg/m General: No distress, appears stated age. Acute on chronically ill-appearing male. On room air, no respiratory distress. Obese male. Eyes: PERRL. Conjunctivae/corneas clear. HENT: Head normal appearing. Nares normal. Oral mucosa moist. Hearing intact. Neck: Supple, with full range of motion. Trachea midline. No gross JVD appreciated. Respiratory: Normal effort. Clear to auscultation, without rales or wheezes or rhonchi. Cardiovascular: Normal rate, regular rhythm with normal S1/S2 without murmurs. No lower extremity edema. Abdomen: Soft, non-tender, non-distended with normal bowel sounds. Musculoskeletal: No joint swelling or tenderness. Normal tone. No abnormal movements. Skin: Warm and dry. No rashes or lesions. Neurologic: No focal sensory/motor deficits in the upper or lower extremities. Cranial nerves: grossly non-focal 2-12. Psychiatric: Alert and oriented, normal insight and thought content. Capillary Refill: Brisk,< 3 seconds. Peripheral Pulses: +2 palpable, equal bilaterally. Labs/Radiology: See chart or assessment above. Case was discussed with Attending, Dr. Ruth Cool MD Associated attestation - Ruth Wyman MD - 03/02/2024 7:01 AM EDT Attending Physician s Attestation Statement I have discussed this patient's care with the Resident taking care of this patient. I have seen the patient independently and agree with the assessment and plan. Date of Service - 03/01/24 [address] scanning for bone marrow biopsy with family at bedside. Monitor applied. 0838 Dr. Mendoza here; spoke to patient. This procedure has been fully reviewed with the patient and written informed consent has been obtained. Histology called to CT area for procedure. [address] table and pre scan started. [address] Mendoza. 0904 Samples collected and given to plate cleaner for further review. 0906 Procedure completed; patient tolerated well. Post scan obtained. 0908 Bacitracin oint, band aid to site; no bleeding noted. 0910 Patient on bed; comfort ensured. 0917 patient taken to via bed/transporter with family at bedside. Pt alert and oriented x3; follows commands. Skin pink, warm, and dry. Respirations easy, regular, and nonlabored. Images from the original note were not included. Hospitalist Progress Note Internal Medicine Resident Patient: Ethan Donald 33 y.o. male Unit/Bed: -003-A Admit Date: 02/27/2024 ASSESSMENT AND PLAN Active Problems Pancytopenia: Patient WBC, RBC, platelets trending down. Was noted to have folate deficiency and replaced on 02/27. Unclear etiology at this time. Heme-onc consulted and evaluated patient. Planning obtain BM biopsy. 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 No history of seizure. Continuous EEG negative for seizures. Reported right temporal tenderness that is aggravating his passing out. He is passing out episode is likely behavioral component. CTA head and neck from outside hospital showed no acute intracranial abnormalities, no apparent arterial high-grade stenosis, occlusion or aneurysm within the head or neck. Neurology consulted, recommended starting Depakote load and the Depakote 500 mg twice daily. Also recommended rheumatology referral. MRI pending Discontinue Depakote MRI no acute intracranial findings Seizure precaution Complex migraine: reports right right-sided temporal headache. Patient asking for Dilaudid or morphine for headache. Continue Tylenol and Toradol as needed. Continue Flexeril as needed Hypokalemia: Resolved. Hyponatremia. Resolved with fluids History of multiple personality disorder. Unclear if he follows psychologist. Likely contributing to his behavior. Fibromyalgia: Currently not complain any pain. Continue to monitor Tobacco use disorder: Currently smokes 0.5 PPD. Nicotine patch ordered Chronic Conditions (reviewed and stable unless otherwise stated) LDA: []CVC / []PICC / []Midline / []Perkins / []Drains / []Mediport / [x]None Antibiotics: none Steroids: none Labs (still needed?): [x]Yes / []No IVF (still needed?): []Yes / []No Level of care: [x]Step Down / []Med-Surg Bed Status: [x]Inpatient / []Observation Telemetry: [x]Yes / []No PT/OT: [x]Yes / []No DVT Prophylaxis: [x] Lovenox / [] Heparin / [] SCDs / [] Already on Systemic Anticoagulation / [] None Expected discharge date: 02/28 Disposition: home Code status: Full Code = Chief Complaint: seizure HPI / Hospital Course: 33 y.o. male with PMHx of Multiple personality disorder, Fibromyalgia who presented to [facility] on 02/26 with chief complaint of loss of consciousness. Directly admitted from [facility]. Reported on 02/22 having seizure while at the sleep and caused him to bite his tongue, witnessed by his . Went to his PCP for the next day and was diagnosed with sinusitis and given a cephalexin and Zofran. Reports intermittent right-sided temporal pain, visual changes and black spots. Also reports sweating and high blood pressure! Denies prior history of seizure or migraines with denies alcohol use. Denies dizziness, or lightheadedness. Denies fever or chills. CTH/CTA H&N on 02/25 from OSH showed no acute intracranial abnormality, no apparent arterial high grade stenosis, occlusion or aneurysm within the head or neck. MRI pending During this hospital course: neurology consulted recommended starting on Depakote 500 mg daily, with loading dose given on 02/26 and suggested rheumatology for evaluation of lupus. EEG 24 did not record any episode Subjective (past 24 hours): 02/27: Pt was seen and evaluated at bedside this morning. No acute event overnight. Hemodynamically stable. Complains headache. Denies CP, SOB, fever, lightheadedness,nausea/vomiting, abdominal pain, or urinary problem. 02/28: Pt was seen and evaluated at bedside this morning. No acute event overnight. Hemodynamically stable. Complains right sided intermittent BROOKS. Denies CP, SOB, fever, headache, fever, lightheadedness,nausea/vomiting, abdominal pain, or urinary problem. Medications: Infusion Medications sodium chloride Scheduled Medications folic acid 1 mg IntraVENous Daily magnesium sulfate 1,000 mg IntraVENous Once sodium chloride flush 10 mL IntraVENous 2 times per day [Held by provider] enoxaparin 40 mg SubCUTAneous Daily nicotine 1 patch TransDERmal Daily [Held by provider] divalproex 500 mg Oral 2 times per day PRN Meds: calcium gluconate, ketorolac, sodium chloride flush, sodium chloride, potassium chloride OR potassium alternative oral replacement OR [DISCONTINUED] potassium chloride, [Held by provider] magnesium sulfate, ondansetron OR ondansetron, polyethylene glycol, acetaminophen OR acetaminophen, LORazepam Exam: BP 111/71 Pulse 72 Temp 98.6 F (37 C) (Oral) Resp 18 Ht 1.753 m (5' 9 ) Wt 97.2 kg (214 lb 4.6 oz) SpO2 98% BMI 31.64 kg/m General: No distress, appears stated age. Eyes: PERRL. Conjunctivae/corneas clear. HENT: Head normal appearing. Nares normal. Oral mucosa moist. Hearing intact. Neck: Supple, with full range of motion. Trachea midline. No gross JVD appreciated. Respiratory: Normal effort. Clear to auscultation, without rales or wheezes or rhonchi. Cardiovascular: Normal rate, regular rhythm with normal S1/S2 without murmurs. No lower extremity edema. Abdomen: Soft, non-tender, non-distended with normal bowel sounds. Musculoskeletal: No joint swelling or tenderness. Normal tone. No abnormal movements. Skin: Warm and dry. No rashes or lesions. Neurologic: No focal sensory/motor deficits in the upper or lower extremities. Cranial nerves: grossly non-focal 2-12. Psychiatric: Alert and oriented, normal insight and thought content. Capillary Refill: Brisk,< 3 seconds. Peripheral Pulses: +2 palpable, equal bilaterally. Labs/Radiology: See chart or assessment above. Case was discussed with Attending, Dr. Wyman. Associated attestation - Ruth Wyman MD - 02/29/2024 6:07 PM EDT Attending Physician s Attestation Statement I have discussed this patient's care with the Resident taking care of this patient. I have seen the patient independently and agree with the assessment and plan. Hematology consulted given pancytopenia. Depakote held at this time after discussion with neurology. Date of Service - 02/29/2024 Neurology Progress Note Date:02/29/2024 Room:[address] [place] [address] Patient Name:Ethan Donald Date of :1990 Age:33 y.o. CC: No chief complaint on file. Subjective Ethan Donald is a 33 y.o. male with a history of Multiple Personality Disorder, Fibromyalgia and Marijuana and Tobacco dependence who presented to [facility] after passing out at his psychiatrist office; transferred to [facility] on 02/26/2024 for neurology evaluation. Patient reports that on he was awoken by his who reported that he was having a seizure. He reports that he bit his tongue but denied any bowel or bladder incontinence. He denied any prior history of seizure activity. Since the episode he has had approximately 30 episodes of sharp right sided intermittent headache that causes him to pass out. Additionally he reports nausea with episodes of vomiting and diarrhea; the vomiting and diarrhea have resolved. He had not really ate much since this has all started but had some applesauce this morning. He was recently started on antibiotics for a sinus infection. He denied any visual disturbance, paresthesias or focal weakness. Interval History 02/28/2024: Lying in bed in no acute distress reports that he is having a constant dull right sided headache with intermittent sharp stabbing episodes that cause him to loose consciousness. He denied any visual disturbance. He is getting tylenol and toradol for the headaches and feels that it is helping. He was able to tolerate a diet today without any nausea or vomiting. is at bedside who confirms that he had seizure like activity in the night with abnormal breathing and foaming at the mouth. Interval History 02/29/2024: Lying in bed in no acute distress reports ongoing right sided headache described as aching with intermittent sharp stabbing episodes that is causing him to lose consciousness; he reports that he has had approximately 10 of these episodes just this morning. He feels as if the episodes are becoming more intense as well as more frequent since admission. He is also reporting neck pain. He is no longer having any nausea or vomiting and is tolerating a diet well. Review of Systems Review of Systems Neurological: Positive for syncope and headaches. Medications Scheduled Meds: folic acid 1 mg IntraVENous Daily magnesium sulfate 1,000 mg IntraVENous Once sodium chloride flush 10 mL IntraVENous 2 times per day [Held by provider] enoxaparin 40 mg SubCUTAneous Daily nicotine 1 patch TransDERmal Daily [Held by provider] divalproex 500 mg Oral 2 times per day Continuous Infusions: sodium chloride PRN Meds: calcium gluconate, ketorolac, sodium chloride flush, sodium chloride, potassium chloride OR potassium alternative oral replacement OR [DISCONTINUED] potassium chloride, [Held by provider] magnesium sulfate, ondansetron OR ondansetron, polyethylene glycol, acetaminophen OR acetaminophen, LORazepam Past History Past Medical History: has a past medical history of Arthritis, Fibromyalgia, Multiple personalities (HCC), and Darell-Schlatter's disease. Social History: reports that he has been smoking cigarettes. He has quit using smokeless tobacco. He reports that he does not currently use alcohol. Family History: No family history on file. Physical Examination Vitals: BP 111/71 Pulse 72 Temp 98.6 F (37 C) (Oral) Resp 18 Ht 1.753 m (5' 9 ) Wt 97.2 kg (214 lb 4.6 oz) SpO2 98% BMI 31.64 kg/m Temp (24hrs), Av.4 F (36.9 C), Min:98.1 F (36.7 C), Max:98.8 F (37.1 C) I/O (24Hr): Intake/Output Summary (Last 24 hours) at 02/29/2024 1441 Last data filed at 02/29/2024 1235 Gross per 24 hour Intake 725 ml Output 1550 ml Net -825 ml Physical Exam Constitutional: Appearance: Normal appearance. He is obese. HENT: Head: Normocephalic and atraumatic. Mouth/Throat: Mouth: Mucous membranes are moist. Eyes: Extraocular Movements: Extraocular movements intact and EOM normal. Pupils: Pupils are equal, round, and reactive to light. Pulmonary: Effort: Pulmonary effort is normal. Skin: General: Skin is warm and dry. Neurological: Mental Status: He is alert and oriented to person, place, and time. Motor: Motor strength is normal. Coordination: [id number] Test and Heel to Gutierrez Test normal. Psychiatric: Speech: Speech normal. Behavior: Behavior normal. Neurologic Exam Mental Status Oriented to person, place, and time. Follows 2 step commands. Attention: normal. Concentration: normal. Speech: speech is normal Level of consciousness: alert Knowledge: good. Able to name object. Able to repeat. Normal comprehension. Cranial Nerves CN II Visual coleman full to confrontation. CN III, IV, Pupils are equal, round, and reactive to light. Extraocular motions are normal. CN V Facial sensation intact. CN VII Facial expression full, symmetric. CN VIII Hearing: intact CN XI CN XI normal. CN XII CN XII normal. Motor Exam Muscle bulk: normal Overall muscle tone: normal Strength Strength 5/5 throughout. Sensory Exam Light touch normal. Gait, Coordination, and Reflexes Coordination Finger to nose coordination: normal Heel to gutierrez coordination: normal Labs/Imaging/Diagnostics Labs: CBC: Recent Labs 02/28/2452102/29/24409 WBC 2.3* 1.5* RBC 4.34* 3.98* HGB 13.1* 12.2* HCT 39.2* 36.0* MCV 90.3 90.5 PLT 107* 89* CHEMISTRIES: Recent Labs 02/27/2444402/28/2452102/29/24409 NA -- 140 139 K -- 4.1 3.7 CL -- 101 102 CO2 -- 25 24 BUN -- 15 13 CREATININE -- 1.2 1.1 GLUCOSE -- 94 96 PHOS 4.0 -- -- MG -- 2.3 -- PT/INR: Recent Labs 02/28/24521 INR 1.13 APTT: Recent Labs 02/28/24521 APTT 24.6 LIVER PROFILE: Recent Labs 02/28/2452102/29/24409 AST 45* 61* ALT 39 49 BILIDIR -- 0.3 BILITOT 0.8 0.7 ALKPHOS 85 89 Imaging Last 24 Hours: CTA HEAD NECK W CONTRAST Result Date: 02/26/2024 EXAMINATION: CTA OF THE HEAD AND NECK WITH CONTRAST; CT OF THE HEAD WITHOUT CONTRAST 02/26/2024 5:37 pm; 02/26/2024 5:35 pm: TECHNIQUE: CTA of the head and neck was performed with the administration of intravenous contrast. Multiplanar reformatted images are provided for review. MIP images are provided for review. Stenosis of the internal carotid arteries measured using NASCET criteria. Automated exposure control, iterative reconstruction, and/or weight based adjustment of the mA/kV was utilized to reduce the radiation dose to as low as reasonably achievable.; CT of the head was performed without the administration of intravenous contrast. Automated exposure control, iterative reconstruction, and/or weight based adjustment of the mA/kV was utilized to reduce the radiation dose to as low as reasonably achievable. Noncontrast CT of the head with reconstructed 2-D images are also provided for review. COMPARISON: None. HISTORY: ORDERING SYSTEM PROVIDED HISTORY: headache FINDINGS: CT HEAD: BRAIN/VENTRICLES: No acute intracranial hemorrhage or extraaxial fluid collection. Perea-white differentiation is maintained. No evidence of mass, mass effect or midline shift. No evidence of hydrocephalus. ORBITS: The visualized portion of the orbits demonstrate no acute abnormality. SINUSES: The visualized paranasal sinuses and mastoid air cells demonstrate no acute abnormality. SOFT TISSUES/SKULL: No acute abnormality of the visualized skull or soft tissues. CTA NECK: AORTIC ARCH/ARCH VESSELS: No dissection or arterial injury. No significant stenosis of the brachiocephalic or subclavian arteries. CAROTID ARTERIES: No dissection, arterial injury, or hemodynamically significant stenosis by NASCET criteria. VERTEBRAL ARTERIES: No dissection, arterial injury, or significant stenosis. SOFT TISSUES: The lung apices are clear. No cervical or superior mediastinal lymphadenopathy. The larynx and pharynx are unremarkable. No acute abnormality of the salivary and thyroid glands. BONES: No acute osseous abnormality. CTA HEAD: ANTERIOR CIRCULATION: No significant stenosis of the intracranial internal carotid, anterior cerebral, or middle cerebral arteries. No aneurysm. POSTERIOR CIRCULATION: No significant stenosis of the vertebral, basilar, or posterior cerebral arteries. No aneurysm. OTHER: No dural venous sinus thrombosis on this non-dedicated study. 1. No acute intracranial abnormality. 2. No apparent arterial high grade stenosis, occlusion or aneurysm within the head or neck. CT Head W/O Contrast Result Date: 02/26/2024 EXAMINATION: CTA OF THE HEAD AND NECK WITH CONTRAST; CT OF THE HEAD WITHOUT CONTRAST 02/26/2024 5:37 pm; 02/26/2024 5:35 pm: TECHNIQUE: CTA of the head and neck was performed with the administration of intravenous contrast. Multiplanar reformatted images are provided for review. MIP images are provided for review. Stenosis of the internal carotid arteries measured using NASCET criteria. Automated exposure control, iterative reconstruction, and/or weight based adjustment of the mA/kV was utilized to reduce the radiation dose to as low as reasonably achievable.; CT of the head was performed without the administration of intravenous contrast. Automated exposure control, iterative reconstruction, and/or weight based adjustment of the mA/kV was utilized to reduce the radiation dose to as low as reasonably achievable. Noncontrast CT of the head with reconstructed 2-D images are also provided for review. COMPARISON: None. HISTORY: ORDERING SYSTEM PROVIDED HISTORY: headache FINDINGS: CT HEAD: BRAIN/VENTRICLES: No acute intracranial hemorrhage or extraaxial fluid collection. Perea-white differentiation is maintained. No evidence of mass, mass effect or midline shift. No evidence of hydrocephalus. ORBITS: The visualized portion of the orbits demonstrate no acute abnormality. SINUSES: The visualized paranasal sinuses and mastoid air cells demonstrate no acute abnormality. SOFT TISSUES/SKULL: No acute abnormality of the visualized skull or soft tissues. CTA NECK: AORTIC ARCH/ARCH VESSELS: No dissection or arterial injury. No significant stenosis of the brachiocephalic or subclavian arteries. CAROTID ARTERIES: No dissection, arterial injury, or hemodynamically significant stenosis by NASCET criteria. VERTEBRAL ARTERIES: No dissection, arterial injury, or significant stenosis. SOFT TISSUES: The lung apices are clear. No cervical or superior mediastinal lymphadenopathy. The larynx and pharynx are unremarkable. No acute abnormality of the salivary and thyroid glands. BONES: No acute osseous abnormality. CTA HEAD: ANTERIOR CIRCULATION: No significant stenosis of the intracranial internal carotid, anterior cerebral, or middle cerebral arteries. No aneurysm. POSTERIOR CIRCULATION: No significant stenosis of the vertebral, basilar, or posterior cerebral arteries. No aneurysm. OTHER: No dural venous sinus thrombosis on this non-dedicated study. 1. No acute intracranial abnormality. 2. No apparent arterial high grade stenosis, occlusion or aneurysm within the head or neck. Assessment and Plan Hospital Problems Last Modified POA * (Principal) New onset seizure (HCC) 02/26/2024 Yes Pancytopenia (HCC) 02/28/2024 Yes New onset Seizure: CTH negative CTA head and neck negative MRI brain w/wo negative EEG (30m) normal EEG (24h) normal Depakote 1g load then Depakote 500mg BID started 02/26 placed on hold on 02/28 due to worsening pancytopenia. Recommend to continue to hold. Not recommending any other AEDs at this time. Do not feel that he needs an LP at this time due to negative MRI brain with contrast. Recommend referral to rheumatology OP for evaluation of lupus Seizure precautions Refrain from driving, climbing, swimming, bathing, operating heavy machinery until event free for 6 consecutive months or until cleared by a neurologist. Follow up with Dr. Davis in 1-2 months. Follow up with established psychiatry 2. Complex migraine MRI brain w/wo: negative Flexeril x1 per primary Tylenol and Toradol PRN Patient reports that he is hydrating well orally No further inpatient neurologic work-up at this time. Neurology will sign off. Please do not hesitate to call our service if there are any questions or concerns. This was discussed with Dr. Veliz and he is in agreement with the assessment and plan. Images from the original note were not included. Hospitalist Progress Note Internal Medicine Resident Patient: Ethan Donald 33 y.o. 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 No history of seizure. Continuous EEG negative for seizures. Reported right temporal tenderness that is aggravating his passing out. He is passing out episode is likely behavioral component. CTA head and neck from outside hospital showed no acute intracranial abnormalities, no apparent arterial high-grade stenosis, occlusion or aneurysm within the head or neck. Neurology consulted, recommended starting Depakote load and the Depakote 500 mg twice daily. Also recommended rheumatology referral. MRI pending Will discontinue continuous EEG. Will continue Depakote 500 bid F/u MRI Daily BMP Seizure precaution Pancytopenia: WBC 2.3; hemoglobin 13.1, platelet 107. Low folate also noted could be underlying etiology. Concern for inflammatory component given elevated ESR and CRP. Cannot rule out other causes such as leukemia, or other immunocompromising etiologies.. Folate replaced Will recommend outpatient workup for pancytopenia on discharge Daily CBC Complex migraine: reports right right-sided temporal headache. Continue Tylenol and Toradol as needed. Continue Depakote as above Continue Flexeril as needed Hypokalemia: Resolved. presented with a potassium of 3.3 resolved on supplement. Hyponatremia. Resolved with fluids History of multiple personality disorder. Unclear if he follows psychologist Fibromyalgia: Currently not complain any pain. Continue to monitor Tobacco use disorder: Currently smokes 0.5 PPD. Nicotine patch ordered Chronic Conditions (reviewed and stable unless otherwise stated) LDA: []CVC / []PICC / []Midline / []Perkins / []Drains / []Mediport / [x]None Antibiotics: none Steroids: none Labs (still needed?): [x]Yes / []No IVF (still needed?): []Yes / []No Level of care: [x]Step Down / []Med-Surg Bed Status: [x]Inpatient / []Observation Telemetry: [x]Yes / []No PT/OT: [x]Yes / []No DVT Prophylaxis: [x] Lovenox / [] Heparin / [] SCDs / [] Already on Systemic Anticoagulation / [] None Expected discharge date: 02/28 Disposition: home Code status: Full Code = Chief Complaint: seizure HPI / Hospital Course: 33 y.o. male with PMHx of Multiple personality disorder, Fibromyalgia who presented to [facility] on 02/26 with chief complaint of loss of consciousness. Directly admitted from [facility]. Reported on 02/22 having seizure while at the sleep and caused him to bite his tongue, witnessed by his . Went to his PCP for the next day and was diagnosed with sinusitis and given a cephalexin and Zofran. Reports intermittent right-sided temporal pain, visual changes and black spots. Also reports sweating and high blood pressure! Denies prior history of seizure or migraines with denies alcohol use. Denies dizziness, or lightheadedness. Denies fever or chills. CTH/CTA H&N on 02/25 from OSH showed no acute intracranial abnormality, no apparent arterial high grade stenosis, occlusion or aneurysm within the head or neck. MRI pending During this hospital course: neurology consulted recommended starting on Depakote 500 mg daily, with loading dose given on 02/26 and suggested rheumatology for evaluation of lupus. EEG 24 did not record any episode Subjective (past 24 hours): Pt was seen and evaluated at bedside this morning. No acute event overnight. Hemodynamically stable. Complains headache. Denies CP, SOB, fever, lightheadedness,nausea/vomiting, abdominal pain, or urinary problem. Medications: Infusion Medications sodium chloride Scheduled Medications folic acid 1 mg Oral Daily sodium chloride flush 10 mL IntraVENous 2 times per day enoxaparin 40 mg SubCUTAneous Daily nicotine 1 patch TransDERmal Daily divalproex 500 mg Oral 2 times per day PRN Meds: ketorolac, sodium chloride flush, sodium chloride, potassium chloride OR potassium alternative oral replacement OR [DISCONTINUED] potassium chloride, magnesium sulfate, ondansetron OR ondansetron, polyethylene glycol, acetaminophen OR acetaminophen, LORazepam Exam: BP 126/80 Pulse 87 Temp 98.1 F (36.7 C) (Oral) Resp 18 Ht 1.753 m (5' 9 ) Wt 97.2 kg (214 lb 4.6 oz) SpO2 98% BMI 31.64 kg/m General: No distress, appears stated age. Eyes: PERRL. Conjunctivae/corneas clear. HENT: Head normal appearing. Nares normal. Oral mucosa moist. Hearing intact. Neck: Supple, with full range of motion. Trachea midline. No gross JVD appreciated. Respiratory: Normal effort. Clear to auscultation, without rales or wheezes or rhonchi. Cardiovascular: Normal rate, regular rhythm with normal S1/S2 without murmurs. No lower extremity edema. Abdomen: Soft, non-tender, non-distended with normal bowel sounds. Musculoskeletal: No joint swelling or tenderness. Normal tone. No abnormal movements. Skin: Warm and dry. No rashes or lesions. Neurologic: No focal sensory/motor deficits in the upper or lower extremities. Cranial nerves: grossly non-focal 2-12. Psychiatric: Alert and oriented, normal insight and thought content. Capillary Refill: Brisk,< 3 seconds. Peripheral Pulses: +2 palpable, equal bilaterally. Labs/Radiology: See chart or assessment above. Case was discussed with Attending, Dr. Wyman. Associated attestation - Ruth Wyman MD - 02/28/2024 9:43 PM EDT Attending Physician s Attestation Statement I have discussed this patient's care with the Resident taking care of this patient. I have seen the patient independently and agree with the assessment and plan. Continuing with AED. MRI pending. Pancytopenia noted, will monitor for stability in AM. Folic acid deficiency noted and replacement ongoing. Suspect likely pancytopenia related to folate deficiency, though if progressive or fails to improve following persistent supplementation, will need further work-up in the OP setting. Patient may ultimately benefit from OP autoimmune work-up given elevated inflammatory markers. At this time, will hold further rheumatologic work-up in the IP setting Date of Service - 02/28/2024 Neurology Progress Note Date:02/28/2024 Room:[address] [place] [address] Patient Name:Ethan Donald Date of :1990 Age:33 y.o. CC: No chief complaint on file. Subjective Ethan Donald is a 33 y.o. male with a history of Multiple Personality Disorder, Fibromyalgia and Marijuana and Tobacco dependence who presented to [facility] after passing out at his psychiatrist office; transferred to [facility] on 02/26/2024 for neurology evaluation. Patient reports that on he was awoken by his who reported that he was having a seizure. He reports that he bit his tongue but denied any bowel or bladder incontinence. He denied any prior history of seizure activity. Since the episode he has had approximately 30 episodes of sharp right sided intermittent headache that causes him to pass out. Additionally he reports nausea with episodes of vomiting and diarrhea; the vomiting and diarrhea have resolved. He had not really ate much since this has all started but had some applesauce this morning. He was recently started on antibiotics for a sinus infection. He denied any visual disturbance, paresthesias or focal weakness. Interval History 02/28/2024: Lying in bed in no acute distress reports that he is having a constant dull right sided headache with intermittent sharp stabbing episodes that cause him to loose consciousness. He denied any visual disturbance. He is getting tylenol and toradol for the headaches and feels that it is helping. He was able to tolerate a diet today without any nausea or vomiting. is at bedside who confirms that he had seizure like activity in the night with abnormal breathing and foaming at the mouth. Review of Systems Review of Systems Neurological: Positive for syncope and headaches. Medications Scheduled Meds: folic acid 1 mg Oral Daily sodium chloride flush 10 mL IntraVENous 2 times per day enoxaparin 40 mg SubCUTAneous Daily nicotine 1 patch TransDERmal Daily divalproex 500 mg Oral 2 times per day Continuous Infusions: sodium chloride PRN Meds: ketorolac, sodium chloride flush, sodium chloride, potassium chloride OR potassium alternative oral replacement OR [DISCONTINUED] potassium chloride, magnesium sulfate, ondansetron OR ondansetron, polyethylene glycol, acetaminophen OR acetaminophen, LORazepam Past History Past Medical History: has a past medical history of Arthritis, Fibromyalgia, Multiple personalities (HCC), and [place]-Schlatter's disease. Social History: reports that he has been smoking cigarettes. He has quit using smokeless tobacco. He reports that he does not currently use alcohol. Family History: No family history on file. Physical Examination Vitals: BP 104/68 Pulse 83 Temp 98.1 F (36.7 C) (Oral) Resp 18 Ht 1.753 m (5' 9 ) Wt 97.2 kg (214 lb 4.6 oz) SpO2 99% BMI 31.64 kg/m Temp (24hrs), Av.4 F (36.9 C), Min:97.5 F (36.4 C), Max:99 F (37.2 C) I/O (24Hr): Intake/Output Summary (Last 24 hours) at 02/28/2024 1553 Last data filed at 02/28/2024 0905 Gross per 24 hour Intake 490 ml Output 850 ml Net -360 ml Physical Exam Constitutional: Appearance: Normal appearance. He is obese. HENT: Head: Normocephalic and atraumatic. Mouth/Throat: Mouth: Mucous membranes are moist. Eyes: Extraocular Movements: Extraocular movements intact and EOM normal. Pupils: Pupils are equal, round, and reactive to light. Pulmonary: Effort: Pulmonary effort is normal. Skin: General: Skin is warm and dry. Neurological: Mental Status: He is alert and oriented to person, place, and time. Motor: Motor strength is normal. Coordination: Hamiln-Yzqm-Hukyzx Test and Heel to Gutierrez Test normal. Psychiatric: Speech: Speech normal. Behavior: Behavior normal. Neurologic Exam Mental Status Oriented to person, place, and time. Follows 2 step commands. Attention: normal. Concentration: normal. Speech: speech is normal Level of consciousness: alert Knowledge: good. Able to name object. Able to repeat. Normal comprehension. Cranial Nerves CN II Visual coleman full to confrontation. CN III, IV, Pupils are equal, round, and reactive to light. Extraocular motions are normal. CN V Facial sensation intact. CN VII Facial expression full, symmetric. CN VIII Hearing: intact CN XI CN XI normal. CN XII CN XII normal. Motor Exam Muscle bulk: normal Overall muscle tone: normal Strength Strength 5/5 throughout. Sensory Exam Light touch normal. Gait, Coordination, and Reflexes Coordination Finger to nose coordination: normal Heel to gutierrez coordination: normal Labs/Imaging/Diagnostics Labs: CBC: Recent Labs 02/26/24 1028 02/28/24 05 WBC 4.1 2.3* RBC 4.72 4.34* HGB 14.7 13.1* HCT 41.0 39.2* MCV 86.9 90.3 RDW 12.0 -- PLT See Reflexed IPF Result 107* CHEMISTRIES: Recent Labs 02/26/24 1028 02/27/24 0445 02/28/24 0522 NA 135* -- 140 K 3.3* -- 4.1 CL 97* -- 101 CO2 23 -- 25 BUN 13 -- 15 CREATININE 1.2 -- 1.2 GLUCOSE 100* -- 94 PHOS -- 4.0 -- MG -- -- 2.3 PT/INR: Recent Labs 02/28/24 05 INR 1.13 APTT: Recent Labs 02/28/24 0522 APTT 24.6 LIVER PROFILE: Recent Labs 02/26/24 1258 02/28/24 0522 AST 54* 45* ALT 45 39 BILIDIR 0.5* -- BILITOT 1.1 0.8 ALKPHOS 97 85 Imaging Last 24 Hours: CTA HEAD NECK W CONTRAST Result Date: 02/26/2024 EXAMINATION: CTA OF THE HEAD AND NECK WITH CONTRAST; CT OF THE HEAD WITHOUT CONTRAST 02/26/2024 5:37 pm; 02/26/2024 5:35 pm: TECHNIQUE: CTA of the head and neck was performed with the administration of intravenous contrast. Multiplanar reformatted images are provided for review. MIP images are provided for review. Stenosis of the internal carotid arteries measured using NASCET criteria. Automated exposure control, iterative reconstruction, and/or weight based adjustment of the mA/kV was utilized to reduce the radiation dose to as low as reasonably achievable.; CT of the head was performed without the administration of intravenous contrast. Automated exposure control, iterative reconstruction, and/or weight based adjustment of the mA/kV was utilized to reduce the radiation dose to as low as reasonably achievable. Noncontrast CT of the head with reconstructed 2-D images are also provided for review. COMPARISON: None. HISTORY: ORDERING SYSTEM PROVIDED HISTORY: headache FINDINGS: CT HEAD: BRAIN/VENTRICLES: No acute intracranial hemorrhage or extraaxial fluid collection. Perea-white differentiation is maintained. No evidence of mass, mass effect or midline shift. No evidence of hydrocephalus. ORBITS: The visualized portion of the orbits demonstrate no acute abnormality. SINUSES: The visualized paranasal sinuses and mastoid air cells demonstrate no acute abnormality. SOFT TISSUES/SKULL: No acute abnormality of the visualized skull or soft tissues. CTA NECK: AORTIC ARCH/ARCH VESSELS: No dissection or arterial injury. No significant stenosis of the brachiocephalic or subclavian arteries. CAROTID ARTERIES: No dissection, arterial injury, or hemodynamically significant stenosis by NASCET criteria. VERTEBRAL ARTERIES: No dissection, arterial injury, or significant stenosis. SOFT TISSUES: The lung apices are clear. No cervical or superior mediastinal lymphadenopathy. The larynx and pharynx are unremarkable. No acute abnormality of the salivary and thyroid glands. BONES: No acute osseous abnormality. CTA HEAD: ANTERIOR CIRCULATION: No significant stenosis of the intracranial internal carotid, anterior cerebral, or middle cerebral arteries. No aneurysm. POSTERIOR CIRCULATION: No significant stenosis of the vertebral, basilar, or posterior cerebral arteries. No aneurysm. OTHER: No dural venous sinus thrombosis on this non-dedicated study. 1. No acute intracranial abnormality. 2. No apparent arterial high grade stenosis, occlusion or aneurysm within the head or neck. CT Head W/O Contrast Result Date: 02/26/2024 EXAMINATION: CTA OF THE HEAD AND NECK WITH CONTRAST; CT OF THE HEAD WITHOUT CONTRAST 02/26/2024 5:37 pm; 02/26/2024 5:35 pm: TECHNIQUE: CTA of the head and neck was performed with the administration of intravenous contrast. Multiplanar reformatted images are provided for review. MIP images are provided for review. Stenosis of the internal carotid arteries measured using NASCET criteria. Automated exposure control, iterative reconstruction, and/or weight based adjustment of the mA/kV was utilized to reduce the radiation dose to as low as reasonably achievable.; CT of the head was performed without the administration of intravenous contrast. Automated exposure control, iterative reconstruction, and/or weight based adjustment of the mA/kV was utilized to reduce the radiation dose to as low as reasonably achievable. Noncontrast CT of the head with reconstructed 2-D images are also provided for review. COMPARISON: None. HISTORY: ORDERING SYSTEM PROVIDED HISTORY: headache FINDINGS: CT HEAD: BRAIN/VENTRICLES: No acute intracranial hemorrhage or extraaxial fluid collection. Perea-white differentiation is maintained. No evidence of mass, mass effect or midline shift. No evidence of hydrocephalus. ORBITS: The visualized portion of the orbits demonstrate no acute abnormality. SINUSES: The visualized paranasal sinuses and mastoid air cells demonstrate no acute abnormality. SOFT TISSUES/SKULL: No acute abnormality of the visualized skull or soft tissues. CTA NECK: AORTIC ARCH/ARCH VESSELS: No dissection or arterial injury. No significant stenosis of the brachiocephalic or subclavian arteries. CAROTID ARTERIES: No dissection, arterial injury, or hemodynamically significant stenosis by NASCET criteria. VERTEBRAL ARTERIES: No dissection, arterial injury, or significant stenosis. SOFT TISSUES: The lung apices are clear. No cervical or superior mediastinal lymphadenopathy. The larynx and pharynx are unremarkable. No acute abnormality of the salivary and thyroid glands. BONES: No acute osseous abnormality. CTA HEAD: ANTERIOR CIRCULATION: No significant stenosis of the intracranial internal carotid, anterior cerebral, or middle cerebral arteries. No aneurysm. POSTERIOR CIRCULATION: No significant stenosis of the vertebral, basilar, or posterior cerebral arteries. No aneurysm. OTHER: No dural venous sinus thrombosis on this non-dedicated study. 1. No acute intracranial abnormality. 2. No apparent arterial high grade stenosis, occlusion or aneurysm within the head or neck. Assessment and Plan Hospital Problems Last Modified POA * (Principal) New onset seizure (HCC) 02/26/2024 Yes New onset Seizure CTH negative CTA head and neck negative MRI brain w/wo pending EEG (30m) normal EEG (24h) normal Depakote load then Depakote 500mg BID Recommend referral to rheumatology for evaluation of lupus Seizure precautions Refrain from driving, climbing, swimming, bathing, operating heavy machinery until event free for 6 consecutive months or until cleared by a neurologist. Follow up with Dr. Davis in 1-2 months. 2. Complex migraine Awaiting MRI brain Depakote should help with headache Flexeril x1 per primary Tylenol and Toradol PRN Patient reports that he is hydrating well orally This was discussed with Dr. Veliz and he is in agreement with the assessment and plan. Spiritual Health History and Assessment/Progress Note [facility] (P) Advance Care Planning, , , Name: Ethan Donald Age: 33 y.o. Sex: male Language: Syriac Mandaen: None New onset seizure (HCC) Date: 02/28/2024 Total Time Calculated: (P) 35 min Spiritual Assessment continued in [facility] 4A Referral/Consult From: (P) Nurse Encounter Overview/Reason: (P) Advance Care Planning Service Provided For: (P) Patient, Family, Patient and family together, Significant other Tara, Belief, Meaning: Patient unable to assess at this time Family/Friends Other: Unable to assess at this time. Importance and Influence: Patient unable to assess at this time Family/Friends Other: Unable to assess at this time. Community: Patient feels well-supported. Support system includes: Spouse/Partner Family/Friends feel well-supported. Support system includes: Spouse/Partner Assessment and Plan of Care: Patient Interventions include: Assisted in Advance Care Planning conversation Family/Friends Interventions include: Assisted in Advance Care Planning conversation Patient Plan of Care: Spiritual Care available upon further referral Family/Friends Plan of Care: Spiritual Care available upon further referral Patient is enrolled in [facility], please send discharge medication to [facility]. Thank you! Misti Tineo CPhT - Prescription Assistance ([phone]) 02/27/2024,3:31 PM Assessment: Ethan is a 33 year old male resting in his bed alone, ca.lm. tired and awake. This visit is in response to a Spiritual Consult to discuss ACP document.Please see ACP note for detail [facility]er Worksheet EEG Date: 02/27/2024 Name: Ethan Donald : 1990 Age: 33 y.o. Sex: male CSN: [id number] Room/Location: Ordering Provider: Brian Gunter EEG Number: [id number] Time In: 0857 Time Out: 0900 02/27 Total Treatment Time: 24 hour study Clinical History: Hx of Cannabis use and Multiple personality disorder. Pt stated last monday (02/20)he had a seizure during sleep and bit his tongue. He said since then hs had intermittent stabbing pain on the right side of his head; pt said he loses consciousness when stabbing pain gets bad. No HX of seizures CT of the head 02/27/2024 IMPRESSION: 1. No acute intracranial abnormality. 2. No apparent arterial high grade stenosis, occlusion or aneurysm within the head or neck. Hand Dominance: Right Sedation: No H.V. 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 33 yo new onset seizure, headache and syncopal episode. Wed. he had a seizure in his sleep, bit his tongue. Followed up with PCP and [facility]. At PCP appt today had a pain in head, passed out, came to ED. CT head without contrast nothing acute. No CT with contrast done because wasn't sure if he had contrast at [facility]. No ability to do MRI after 4PM. Questioning temporal arteritis , 60 mg solumedrol given, also given zofran . WBC 4.1, sed rate 17, CRP 81.9. Vials afebrile, 138/84, 92, 18, 97% on room air. documented in this encounter [facility] 03-02-2024 Hospital Discharge instructions Maureen Hampton DO - 03/02/2024 11:54 AM EDT Follow up with your family doctor in the next week. Continue to wear mask for a precaution when around family and friends. Follow up with Neurology, continue seizure precautions. Do not drive motor vehicles until you follow up and see neurology. 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 -met Purification Operator Goals Time Frame for Purification Operator Goals : 6 weeks Purification Operator Goal 1: Patient to be independent and compliant with HEP. -met Purification Operator Goal 2: Patient to have improved R knee AROM 0-120* with no increase in pain for improved mobility. -met (05/31/23 R knee AROM 0-130*) Purification Operator Goal 3: Patient to have improved R LE strength >/=4/5 grossly all major joints and planes for improved knee stability with gait. Usp Goal 4: Pt to report ability to walk community distances with no AD and no gait deviations or increase in pain to return to PLOF. 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 Exercises: Exercise 2: Scifit x10 min Lvl 4.5--hills Exercise 3: Step stretches 3x30 ea, SB stretch 3x30 Exercise 5: Side stepping at counter x2 laps gym --BTB Live[employer] walks - 2 big laps Exercise 6: [...] pain and improve R knee mobility. -met Usp Goals Time Frame for Purification Operator Goals : 6 weeks Usp Goal 1: Patient to be independent and compliant with HEP. -met Purification Operator Goal 2: Patient to have improved R knee AROM 0-120* with no increase in pain for improved mobility. -met (05/31/23 R knee AROM 0-130*) Purification Operator Goal 3: Patient to have improved R LE strength >/=4/5 grossly all major joints and planes for improved knee stability with gait. Purification Operator Goal 4: Pt to report ability to walk community distances with no AD and no gait deviations or increase in pain to return to PLOF. -progressing Minutes Tracking: Time In: 1515 Time Out: 1558 Minutes: 43 Timed Code Treatment Minutes: 41 Minutes Manjit Thorpe Date: 06/12/2023 documented in this encounter [facility] 07-21-2022 Hospital Discharge instructions Patient Education 07/21/2022 09:25:12 Dietary Guidelines [...] include: ?Spinach. ?Rhubarb. ?Beets. ?Potato chips and uzbek fries. ?Nuts. If you regularly take a diuretic medicine, make sure to eat at least 1 2 fruits or vegetables high in potassium each day. These include: ?Avocado. ?Banana. ?Rose, prune, carrot, or tomato juice. ?Baked potato. [...] Casseroles. Pizza. Lasagna. Frozen meals. Potato chips. Citizen [place] fries. Summary You can reduce your risk [...] 08/12/2011 Document Revised: 08/07/2019 Document Reviewed: 03/28/2017 [employer] Patient Education 2020 [employer]. Follow Up Care 07/20/2022 16:11:07 With:Shirley Murrell MD, URL, URO Address: When: Unknown [facility] 07-13-2022 Hospital Discharge instructions Patient Education 07/13/2022 10:16:52 Dietary Guidelines [...] include: ?Spinach. ?Rhubarb. ?Beets. ?Potato chips and uzbek fries. ?Nuts. If you regularly take a diuretic medicine, make sure to eat at least 1 2 fruits or vegetables high in potassium each day. These include: ?Avocado. ?Banana. ?Rose, prune, carrot, or tomato juice. ?Baked potato. [...] Casseroles. Pizza. Lasagna. Frozen meals. Potato chips. Citizen [place] fries. Summary You can reduce your risk [...] 08/12/2011 Document Revised: 08/07/2019 Document Reviewed: 03/28/2017 [employer] Patient Education 2020 [employer]. Follow Up Care 05/23/2022 10:22:28 With:Handy WILEY, Shirley Menchaca, URL, URO Address: When: Unknown [facility] 05-26-2022 Note [id number] [facility] Evaluation + Plan note Future Appointments Appointment Date:07/13/2022 09:00:00 AM Scheduled Provider:Shirley Murrell MD Location:[facility] Appointment Type:URO Office Visit [facility] Evaluation note Diagnosis New onset seizure (HCC)- Primary Other convulsions Pancytopenia (HCC) Other pancytopenia Hip pain, unspecified laterality Pancytopenia (HCC) Other pancytopenia documented in this encounter [facility] course Narrative No data available for this section [facility] Dis[facility] instructions No data available for this section [facility] No data available for this section [facility] Summary Purpose Family History No Family History Records FoundNo Family History Records FoundNo Family History Records FoundNo Family History Records Found Advance Directives No Advanced Directives Records FoundDocuments on File Type Date Recorded Patient Igniter Capper Expl anation ACP-Advance Directive 02/29/2024 2:09 PM Date Activated Date Inactivated Comments 02/27/2024 12:32 AM Healthcare Agents on File Name Relationship Healthcare Agent Relationshi p Communication Daisy Araujo Girlfriend Primary Decision Maker Hiren Donald Parent Secondary Decision Maker Additional Source Comments Patient Care team informatio n (unrecognized section and content) Rv Body Mechanic Relationship Specialty Start Date End Date Latricia Garcia MD [address] [place] [address] PCP - General Family Medicine 02/16/23 Rv Body Mechanic Relationship Specialty Start Date End Date Latricia Garcia MD [address] [place] [address] PCP - General Family Medicine 02/16/23 Rv Body Mechanic Relationship Specialty Start Date End Date Latricia Garcia MD [address] [place] [address] PCP - General Family Medicine 02/16/23 (unrecognized sect ion and content) No Status Records FoundNo Status Records FoundNo Status Records FoundNo Status Records Found INFORMATION SOURCE (unrecogn ized section and content) DATE CREATED AUTHOR 07/31/2022 Max Medrano [facility] ical Center DATE CREATED AUTHOR AUTHOR'S ORGANIZ ATION 09/13/2022 [facility] DATE CREATED AUTHOR AUTHOR'S ORGANIZ ATION 02/28/2024 [facility] DATE CREATED AUTHOR AUTHOR'S ORGANIZ ATION [facility]20[facility] Reason for Visit (unrecogniz ed section and content) Specialty Diagnoses / Procedures Referred By Genoveva bowers Referred To Contact Diagnoses New onset seizure (HCC) new onset seizure [facility] [address] [place] [address] [facility] [address] [place] [address] Referral ID Status Reason Start Date Expiration Date Visits Re quested Visits Authorized [id number] 1 1 Ordered Prescriptions (unrec ognized section and content) Prescription Sig Dispensed Refills Start Date End Da te nicotine (NICODERM CQ) 14 MG/24HR Place 1 patch onto the skin daily 30 patch 1 03/03/2024 polyethylene glycol (GLYCOLAX) 17 g packet Take 1 packet by mouth daily as needed for Constipation 527 g 1 03/02/2024 05/03/2024 ferrous sulfate (IRON 325) 325 (65 Fe) MG tablet Take 1 tablet by mouth daily (with breakfast) 30 tablet 1 03/02/2024 HYDROcodone-acetaminop hen (NORCO) 5-325 MG per tabletIndications:Hip pain, unspecified laterality Take 1 tablet by mouth every 6 hours as needed for Pain for up to 3 days. Intended supply: 3 days. Take lowest dose possible to manage pain Max Daily Amount: 4 tablets 10 tablet 03/02/2024 03/05/2024 ketorolac (TORADOL) 10 MG tablet Take 1 tablet by mouth every 6 hours as needed for Pain 10 tablet 03/02/2024 Scheduled Active and Recently Administ ered Medications (unrecognized section and content) Medication Order 02/29/2024 03/01/2024 03/02/2024 divalproex (DEPAKOTE) DR tablet 500 mg 500 mg, Oral, EVERY 12 HOURS SCHEDULED (2 times per day), First dose on Mon02/27/24 at 2100, Until Discontinued, Do not crush or break., On hold since Mon02/29/2024 at 0851 until manually unheld 0851 (Held by provider - Provider: Chapis Rizvi MD - Reason: Other)0900 (Automatically Held - Provider: Chapis Rizvi MD)2100 (Automatically Held - Provider: Chapis Rizvi MD) 0900 (Automatically Held - Provider: Chapis Rizvi MD)2100 (Automatically Held - Provider: Chapis Rizvi MD) 0900 (Automatically Held - Provider: Chapis Rizvi MD)2100 (Automatically Held - Provider: Chapis Rizvi MD) enoxaparin (LOVENOX) injection 40 mg 40 mg, SubCUTAneous, DAILY, First dose on Mon02/27/24 at 0900, Until Discontinued, Indication of Use: Prophylaxis-DVT/PE, Administer by deep subCUTAneous injection with pt lying down. Alternate injection sites on abdominal wall. Do not rub site after injection. Check with provider prior to any invasive procedure., On hold since Mon02/29/2024 at 1050 until manually unheld 0852 (Given - Provider: Joanna Adame RN)1050 (Held by provider - Provider: Maureen Forbes DO - Reason: Other) 0900 (Automatically Held - Provider: Maureen Forbes DO) 0900 (Automatically Held - Provider: Maureen Forbes DO) ferrous sulfate (IRON 325) tablet 325 mg 325 mg, Oral, 2 TIMES DAILY WITH MEALS, First dose on Mon02/29/24 at 1730, Until Discontinued 1749 (Given - Provider: Joanna Adame RN) 0755 (Given - Provider: Joanna Adame RN)1616 (Given - Provider: Joanna Adame RN) 0759 (Given - Provider: Daphne Alonzo RN)1700 (Due) folic acid injection 1 mg 1 mg, IntraVENous, DAILY, First dose (after last modification) on Mon02/29/24 at 0900, Until Discontinued 1021 (Given - Provider: Joanna Adame RN) 1056 (Given - Provider: Joanna Adame RN) 0900 (Due) magnesium sulfate 1000 mg in dextrose 5% 100 mL IVPB (COMPLETED) 1,000 mg, IntraVENous, at 100 mL/hr, Administer over 1 Hours, ONCE, On Mon02/29/24 at 1500, For 1 dose, Recommended infusion rate not to exceed 1,000 mg (milligrams) per hour. 1525 (New Bag - Provider: Joanna Adame RN)1625 (Rate/Dose Verify - Provider: Joanna Adame RN)1625 (Stopped - Provider: Joanna Adame RN) magnesium sulfate 1000 mg in dextrose 5% 100 mL IVPB (COMPLETED) 1,000 mg, IntraVENous, at 100 mL/hr, Administer over 1 Hours, ONCE, On Mon03/01/24 at 1200, For 1 dose, Recommended infusion rate not to exceed 1,000 mg (milligrams) per hour. 1258 (New Bag - Provider: Joanna Adame RN)1358 (Rate/Dose Change - Provider: Joanna Adame RN)1358 (Stopped - Provider: Joanna Adame RN) nicotine (NICODERM CQ) 14 MG/24HR 1 patch 1 patch, TransDERmal, Administer over 24 Hours, DAILY, First dose on Mon02/27/24 at 0900, Apply new patch to nonhairy, clean, dry skin on the upper body or upper outer arm. Rotate patch sites. Notify pharmacy if patient or provider prefers patch to be removed at bedtime and replaced in the morning. Hazardous Medication -- Refer to facility policy for handling and disposal. 0852 (Patch Removed - Provider: Joanna Adame RN)0853 (Patch Applied - Provider: Joanna Adame RN) 0756 (Patch Removed - Provider: Joanna Adame RN)075 (Not Given - Provider: Joanna Adame RN - Reason: Patient/family refused) 075 (Not Given - Provider: Daphne Alonzo RN - Reason: Patient/family refused) sodium chloride flush 0.9 % injection 10 mL 10 mL, IntraVENous, EVERY 12 HOURS SCHEDULED (2 times per day), First dose on Mon02/27/24 at 0900, Until Discontinued 0852 (Given - Provider: Joanna Adame RN)1958 (Given - Provider: Sol Landis RN) 075 (Given - Provider: Joanna Adame RN)2005 (Given - Provider: Rebecca Humphreys RN) 075 (Given - Provider: Daphneguillermo Alonzo RN)2100 (Due) PRN Medication Order 02/29/2024 03/01/2024 03/02/2024 0.9 % sodium chloride infusion IntraVENous, at 5-250 mL/hr, PRN, if patient receiving piggyback infusions and maintenance fluids are not ordered, Starting on Mon02/27/24 at 0032, For piggyback infusion, administer at same rate as piggyback for a total of 25 mL. Enter 25 mL into dose field and piggyback rate into rate field of order. If piggyback is infusing at a rate less than 100 mL/hr, enter 25 mL into dose field and 100 mL/hr into rate field of order. acetaminophen (TYLENOL) suppository 650 mg(Linked Group 1) 650 mg, Rectal, EVERY 6 HOURS PRN, Starting on Mon02/27/24 at 0032, Until Discontinued, Pain Mild (1-3), Fever, For temp greater than 100.4 F (38 C), Administer if oral route cannot be used. 1405 (See Alternative - Provider: Joanna Adame RN)2007 (See Alternative - Provider: Sol Landis RN) 0930 (See Alternative - Provider: Joanna Adame RN)161 (See Alternative - Provider: Joanna Adame RN)2215 (See Alternative - Provider: Rebecca Humphreys RN) acetaminophen (TYLENOL) tablet 650 mg(Linked Group 1) 650 mg, Oral, EVERY 6 HOURS PRN, Starting on Mon02/27/24 at 0032, Until Discontinued, Pain Mild (1-3), Fever, For temp greater than 100.4 F (38 C), Maximum dose of acetaminophen is 4000 mg from all sources in 24 hours. 1405 (Given - Provider: Joanna Adame RN)2007 (Given - Provider: Sol Landis RN) 0930 (Given - Provider: Joanna Adame RN)161 (Given - Provider: Joanna Adame RN)2215 (Given - Provider: Rebecca Humphreys RN) calcium gluconate 2,000 mg in sodium chloride 100 mL 2,000 mg, IntraVENous, at 50 mL/hr, Administer over 120 Minutes, PRN, See admin instructions, Starting on Caro 02/29/24 at 1101, Serum IONIZED Ca Replacement Action 0.80 -1.00 mmol/L Calcium Gluconate 2g IV over 2 hours 0.79 mmol/L or less Calcium Gluconate 2g IV x 2 doses (each 2g over 2 hours) [4g total dose] AND notify provider Central line is preferred Infuse every 1 gram over 1 hour Repeat IONIZED calcium level in the AM the following day Protocol not for use in patients with a CrCl <30 mL/min fentaNYL (SUBLIMAZE) injection (COMPLETED) PRN, Starting on Mon03/01/24 at 0857, Until Mon03/01/24 at 0900, Intra-op 0857 (Given - Provider: Diana Reddy, MARQUISE)0900 (Given - Provider: Diana Reddy, MARQUISE) ketorolac (TORADOL) injection 30 mg 30 mg, IntraVENous, EVERY 6 HOURS PRN, Starting on Mon02/28/24 at 0909, Until Mon03/04/24 at 0908, Pain Mild (1-3), Pain Moderate (4-6), Do not administer for more than 5 days. 0319 (Given - Provider: Neris Duff RN)1024 (Given - Provider: Joanna Adame RN)1633 (Given - Provider: Joanna Adame, MARQUISE) 0004 (Given - Provider: Sol Landis, MARQUISE)0630 (Given - Provider: Nikki Morris, MARQUISE)1301 (Given - Provider: Joanna Adame, MARQUISE)2006 (Given - Provider: Rebecca Humphreys, MARQUISE) 0210 (Canceled Entry - Provider: Rebecca Humphreys, RN)0256 (Given - Provider: Rebecca Humphreys, RN)1116 (Given - Provider: Daphne Alonzo RN) LORazepam (ATIVAN) injection 4 mg 4 mg, IntraVENous, EVERY 5 MIN PRN, Starting on Mon02/27/24 at 0032, Until Discontinued, Seizures, May repeat dose (4 mg) X 1 for seizures lasting more than 5 minutes. Notify provider if administered for seizure. magnesium sulfate 2000 mg in 50 mL IVPB premix 2,000 mg, IntraVENous, at 25 mL/hr, Administer over 2 Hours, PRN, Other, Magnesium Replacement, Starting on Mon02/27/24 at 0032, Mag Lab Replacement Action 1.4-1.6 mg/dL 2,000 mg Total Dose Given as 1,000 mg IVPB x 2 doses or 2,000 mg IVPB x 1 dose 1.0-1.3 mg/dL 4,000 mg Total Dose Given as 1,000 mg IVPB x 4 doses or 2,000 mg IVPB x 2 doses Less than 1.0 mg/dL CALL PHYSICIAN and give 4,000 mg Total Dose Given as 1,000 mg IVPB x 4 doses or 2,000 mg IVPB x 2 doses Infuse at 1,000 mg/hr Repeat Mag level 1 hour after final administration Protocol not for use in Patients with CrCl less than 30ml/min, On hold since [facility] 02/29/2024 at 1438 until manually unheld 1438 (Held by provider - Provider: Chapis Rizvi MD - Reason: Other) midazolam (VERSED) injection (COMPLETED) PRN, Starting on Mon03/01/24 at 0857, Until Mon03/01/24 at 0900, Intra-op 0857 (Given - Provider: Diana Reddy RN)0900 (Given - Provider: Diana Reddy RN) ondansetron (ZOFRAN) injection 4 mg(Linked Group 2) 4 mg, IntraVENous, EVERY 6 HOURS PRN, Starting on Mon02/27/24 at 0032, Until Discontinued, Nausea, Vomiting, Administer if oral route cannot be used. 0614 (See Alternative - Provider: Asim Mitchell RN)1753 (See Alternative - Provider: Joanna Adame RN) 0630 (See Alternative - Provider: Nikki Morris RN)1616 (See Alternative - Provider: Joanna Adame RN) 0018 (See Alternative - Provider: Rebecca Humphreys RN)0351 (See Alternative - Provider: Rebecca Humphreys RN)1116 (See Alternative - Provider: Daphne Alonzo RN) ondansetron (ZOFRAN-ODT) disintegrating tablet 4 mg(Linked Group 2) 4 mg, Oral, EVERY 8 HOURS PRN, Starting on Mon02/27/24 at 0032, Until Discontinued, Nausea, Vomiting 0614 (Given - Provider: Asim Mitchell RN)1753 (Given - Provider: Joanna Adame RN) 0630 (Given - Provider: Nikki Morris RN)1616 (Given - Provider: Joanna Adame RN) 0018 (Not Given - Provider: Rebecca Humphreys RN - Reason: Patient/family refused)0351 (Given - Provider: Rebecca Humphreys RN)1116 (Given - Provider: Daphne Alonzo, MARQUISE) phenol 1.4 % mouth spray Mouth/Throat, 4 TIMES DAILY PRN, Starting on Mon03/02/24 at 0930, Until Discontinued, Pain 1116 (Given - Provider: Daphne Alonzo, RN) polyethylene glycol (GLYCOLAX) packet 17 g 17 g, Oral, DAILY PRN, Starting on Mon02/27/24 at 0032, Until Discontinued, Constipation, First line therapy for constipation potassium bicarb-citric acid (EFFER-K) effervescent tablet 40 mEq(Linked Group 3) 40 mEq, Oral, PRN, Starting on Mon02/27/24 at 003, Until Discontinued, Per Potassium Replacement Protocol, Administer as alternative if patient unable to tolerate oral tablet. K Lab Replacement Action 3.1 to 3.5 40 mEq ORAL x 1 Under 3.1 Refer to IV replacement protocol Recheck K level in AM. Protocol not for use in patients with CrCl less than 30 mL/min. Do not chew or crush. Dissolve flavored tablets completely in 3 to 4 ounces of cold water; unflavored tablets may be dissolved in 3 to 4 ounces of cold juice. Patient to sip slowly over a 5 to 10 minute period. May further dilute if GI adverse effects occur. potassium chloride (KLOR-CON M) extended release tablet 40 mEq(Linked Group 3) 40 mEq, Oral, PRN, Starting on Mon02/27/24 at 003, Until Discontinued, Potassium Replacement, May give alternative linked oral order (ordered as effervescent, packet, or liquid solution) if patient unable to tolerate tablet. K Lab Replacement Action 3.1 to 3.5 40 mEq ORAL x 1 Under 3.1 Refer to IV replacement protocol Recheck K level in AM. Protocol not for use in patients with CrCl less than 30 mL/min. Do not crush, chew, or suck on tablet. Tablet may also be broken in half and each half swallowed separately. sodium chloride flush 0.9 % injection 10 mL 10 mL, IntraVENous, PRN, Starting on Mon02/27/24 at 0032, Until Discontinued, Line Care, After every IV line use Linked Groups Order Group 1: acetaminophen (TYLENOL) tablet 650 mgJump to med 650 mg, Oral, EVERY 6 HOURS PRN, Starting on Mon02/27/24 at 0032, Until Discontinued, Pain Mild (1-3), Fever, For temp greater than 100.4 F (38 C), Maximum dose of acetaminophen is 4000 mg from all sources in 24 hours. Or acetaminophen (TYLENOL) suppository 650 mgJump to med 650 mg, Rectal, EVERY 6 HOURS PRN, Starting on Mon02/27/24 at 0032, Until Discontinued, Pain Mild (1-3), Fever, For temp greater than 100.4 F (38 C), Administer if oral route cannot be used. Group 2: ondansetron (ZOFRAN-ODT) disintegrating tablet 4 mgJump to med 4 mg, Oral, EVERY 8 HOURS PRN, Starting on Mon02/27/24 at 0032, Until Discontinued, Nausea, Vomiting Or ondansetron (ZOFRAN) injection 4 mgJump to med 4 mg, IntraVENous, EVERY 6 HOURS PRN, Starting on Mon02/27/24 at 0032, Until Discontinued, Nausea, Vomiting, Administer if oral route cannot be used. Group 3: potassium chloride (KLOR-CON M) extended release tablet 40 mEqJump to med 40 mEq, Oral, PRN, Starting on Mon02/27/24 at 0032, Until Discontinued, Potassium Replacement, May give alternative linked oral order (ordered as effervescent, packet, or liquid solution) if patient unable to tolerate tablet. K Lab Replacement Action 3.1 to 3.5 40 mEq ORAL x 1 Under 3.1 Refer to IV replacement protocol Recheck K level in AM. Protocol not for use in patients with CrCl less than 30 mL/min. Do not crush, chew, or suck on tablet. Tablet may also be broken in half and each half swallowed separately. Or potassium bicarb-citric acid (EFFER-K) effervescent tablet 40 mEqJump to med 40 mEq, Oral, PRN, Starting on Mon02/27/24 at 0032, Until Discontinued, Per Potassium Replacement Protocol, Administer as alternative if patient unable to tolerate oral tablet. K Lab Replacement Action 3.1 to 3.5 40 mEq ORAL x 1 Under 3.1 Refer to IV replacement protocol Recheck K level in AM. Protocol not for use in patients with CrCl less than 30 mL/min. Do not chew or crush. Dissolve flavored tablets completely in 3 to 4 ounces of cold water; unflavored tablets may be dissolved in 3 to 4 ounces of cold juice. Patient to sip slowly over a 5 to 10 minute period. May further dilute if GI adverse effects occur. Or potassium chloride 10 mEq/100 mL IVPB (Peripheral Line) (CANCELED) 10 mEq, IntraVENous, PRN, Starting on Mon02/27/24 at 0032, Until Mon02/27/24 at 0035, at 100 mL/hr, Potassium Replacement, K Lab Replacement Action 2.7 to 3.0 10 mEq IVPB x 6 doses (60 mEq Total) Under 2.7 CALL PROVIDER and administer 10 mEq IVPB x 6 doses (60 mEq Total) Infuse at 10 mEq/hr. Repeat Potassium lab 1 hour after final administration. Protocol not for use in patients with CrCl less than 30 mL/min. FOR RECORDS PERTAINING TO PATIENTS WHO ARE [...] BE BASED ON THE PRIMARY CLINICAL RECORDS. [employer] provides no warranty or guarantee of the accuracy or completeness of information in this document.
== END 2024-03-19 20:46 | disposition home or self-care (01) ==
LOC: SLEEP 20:45
PROVIDERS: PCP Family Medicine; Visit Provider Family Medicine
DX: G47.33 Obstructive sleep apnea (adult) (pediatric) (principal)
CPT/HCPCS: 95810

== ENCOUNTER 2024-03-20 12:29 | Outpatient (OUT) | payer MEDICAID, SELFPAY ==
--- NOTE | 2024-03-20 12:32 | MR_ITS ---
The [address] [address] Patient Name: OLEGARIO DONALD MRN: [id number] date: 1990 Sex: M Assigned Patient Location: MRI Current Patient Location: MRI Accession/Order Number: [id number] Exam Date: 03/20/2024 12:45 Report Date: 03/20/2024 15:57 At the request of: LATRICIA GARCIA Procedure: MR head/brain wo/w con EXAM: MR head/brain wo/w con HISTORY: memory loss R41.3 Tremor of right hand R25.1 seizure one month ago. COMPARISON: CT brain 02/25/2024. TECHNIQUE: Multisequence MRI brain was performed with and without intravenous contrast. FINDINGS: There is no restricted diffusion to suggest acute infarct. There is no midline shift, mass effect, or abnormal extraaxial fluid collections. There are no abnormal parenchymal or leptomeningeal enhancement. The cortical sulci and ventricular system are within normal limits. The major intracranial flow voids are visualized. The cerebellar tonsils are normal in position. The orbits demonstrate no suspicious enhancement or any focal lesions. The paranasal sinuses show no air-fluid level. There are couple of small cystic lesions in the left side of the nasopharynx and fluid within the left Rosenmuller fossa, suggestive of mucous retention cysts. The mastoid air cells are grossly clear. The calvarium and extracranial soft tissues are unremarkable. MR/MR head/brain wo/w con IMPRESSION: No acute intracranial abnormality or abnormal intracranial enhancement. No potential seizure focus identified. Electronically authenticated by: YONATAN MCCLELLAND Date: 03/20/2024 15:57
--- OUTSIDE RECORDS SUMMARY | 2024-03-20 12:38 | XMS_ITS | CCD ---
Author Organization [facility] Care Team Providers Care Civil Engineer Land Development Name Role Phone Latricia Garcia Primary Care Physician [phone] Shirley Murrell Attending Unavailable JollyeShirley Referring Unavailable LueShirley MJoselin Admitting Unavailable LueShirley Attending Unavailable LueShirley MoJselin Referring Unavailable Lue Shirley MJoselin Attending Unavailable [...] Unavailable Latricia Garcia MD Primary Care Provider [phone] MICHELLE, JON E Referring Unavailable HOY, LATRICIA [...] Center (1 source) Naproxen Drug Allergy [facility] Repository Medications Current Medications Medication Drug [...] Active Start: 05-12-2022 take 1 capsule by [facility] every twenty-four hours Keflex 500 mg Cap 500 mg = 1 cap(s), Oral, q24hr, Take 1 pill the day before the procedure and 1 pill after the procedure., # 2 cap(s), Refills(s) 0, Pharmacy: [facility] Start Date: 05/12/22 Status: Ordered 0.4 [...] by mouth nightly Active polyethylene glycol 3350 43947 mg powder for oral solution (2 sources) [...] mg oral capsule (1 source) alpha-Adrenerg ic Mic Start: 07-21-2022 take 1 capsule by [...] QUAL BCR-ABL1 ASSAY, RESULT Not detected Normal [facility] Comment on above: Result Comment: [...] gene is also amplified for specimen quality assurance clerk and to ensure the integrity of RNA. [...] Transcripts Analytical Sensitivity Minor (e1a2) NCN = 0.49190 Major (e13a2) %IS = 0.0040 Major (e14a2) [...] developed and its performance characteristics determined by [facility]. It has not been cleared or approved by the U.S. Food and Drug Administration. This test was performed in a CLIA-certified laboratory and is intended for clinical purposes. Performed By: [facility] [address] [place] [address] Adjunct Spanish Instructor: Sunny Roman MD, PhD IA Number: [id number] Performed By: #### D QBC2 #### [facility] [address] [facility] [address] DIAGNOSTIC QUAL BCR-ABL1 ASSAY, SOURCE Not Provided Normal [facility] Comment on above: Result Comment: AMEN DED on 03/12/24: Result in error was LAV Whole Blood, verified at 09:43 on 03/01/24. Performed By: #### D QBC2 #### [facility] [address] [facility] [address] CHROMOSOME ANAL. BONE MARROW on 03-11-2024 CHROMOSOME ANAL. BONE MARROW SEE BELOW Normal [facility] Comment on above: Result Comment: Tnt Line Supervisor mosome Analysis, Bone Marrow See Note Normal [...] reviewed and approved by Akash Smith, PhD, [facility] A portion of this analysis was performed at the following location(s): [facility]-NM[facility]1 [place]1 [place] INTERPRETIVE INFORMATION: Chromosome Analysis, Bone Marrow This test was developed and its performance characteristics determined by [facility]. It has not been cleared or approved by the US Food and Drug Administration. This test was performed in a CLIA certified laboratory and is intended for clinical purposes. EER Chromosome Analysis Bone Marrow See Note Authorized individuals can access the [facility] Enhanced Report using the following link: [email or web address] Performed By: [facility] [address] [place] [address] Adjunct Spanish Instructor: Sunny Roman MD, PhD CLIA Number: [id number] Performed By: #### M MMP, CRBM2, LPBM2 #### [facility] [address] [facility] [address] MYELOID MALIGANCIES MUTATION PANEL BY SIVI 03-08-2024 [facility] MYELOID MALIGNANCIES PANEL BY NGS See Note Normal [facility] Comment on above: Result Comment: Auth orized individuals can access the [facility] Enhanced Report using the following link: [email or web address] Performed By: [facility] [address] [place] [address] Adjunct Spanish Instructor: Sunny Roman MD, PhD CLIA Number: [id number] Performed By: #### M MMP, CRBM2, LPBM2 #### [facility] [address] [facility] [address] MYELOID MALIGNANCIES PANEL INTERP See Note Normal [facility] Comment on above: Result Comment: Myeloid Malignancies Mutation Panel NGS Submitted diagnosis or diagnosis under consideration for variant interpretation: Pancytopenia TIER 1: Variants of Known Clinical Significance in Hematologic Malignancies None found TIER 2: Variants of Unknown Clinical Significance in Hematologic Malignancies 1. NSD1 c.7576C>T, p.[id number] ([id number]) VAF: 49.0% This variant has not been reported in hematologic malignancies, to the best of our knowledge. 2. KMT2A c.5573G>A, p.Ohp7684Sbc ([id number]) VAF: 47.8% This variant has not been reported in hematologic malignancies, to the best of our knowledge. This result has been reviewed and approved by Zulay Abdi M.D. Low coverage regions: Listed below are regions where the average sequencing depth (number of times a particular nucleotide is sequenced) in at least 20% of the gpszkp-qj-iywhhumo is less than our stringent cutoff of [...] NOTCH1; NPM1*; NRAS; NSD1; PHF6; PIGA; PPM1D; KHSZ16M; PRPF8; PTPN11; RAD21; RUNX1; SAMD9; SAMD9L; SETBP1; [...] CRBM2, LPBM2 #### [facility] [address] [facility] [address] MYELOID MALIGNANCIES PANEL SPECIMEN Bone Marrow Normal [facility] Comment on above: Performed By: #### M MMP, CRBM2, LPBM2 #### [facility] [address] [facility] [place] [address] MYELOID MALIGNANCY PROPOSED DIAGNOSIS Pancytopenia Normal [facility] Comment on above: Performed By: #### M MMP, CRBM2, LPBM2 #### [facility] [address] [facility] [place] [address] LEUKEMIA/LYMPHOMA PHENO BLOO Don 03-05-2024 LEUKEMIA/LYMPHOMA PHENO BLOOD SEE BELOW Normal [facility] Comment on above: Result Comment: [...] loss of CD16 without any other abnormality) Azure:Lambda Ratio: approx. 2:1 CD4:CD8 Ratio: approx. 8:1 Viability: 58% Markers run: HLA-DR, Azure, Lambda, CD2, CD3, CD4, CD5, CD7, CD8, CD10, CD11b, CD13, CD14, CD16, CD19, CD20, CD23, CD33, CD34, CD38, CD45, CD56, CD57, CD64, CD117, CD200 Num of Markers Run: 26 This result has been reviewed and approved by Kostas Miller M.D., Ph.D. 03/05/2024 INTERPRETIVE INFORMATION: Leuk/Lymph Phenotyping, Flow Cytometry This test was developed and its performance characteristics determined by [facility]. It has not been cleared or approved by the US Food and Drug Administration. This test was performed in a CLIA certified laboratory and is intended for clinical purposes. Performed By: [facility] [address] [place] [address] Adjunct Spanish Instructor: Sunny Roman MD, PhD CLIA Number: [id number] Performed By: #### C , WS #### [facility] [address] [place] [address] LEUKEMIA/LYMPHOMA PHENO BONE MARROWon 03-03-2024 LEUKEMIA/LYMPHOMA PHENO BONE MARROW SEE BELOW Normal [facility] Comment on above: Result Comment: [...] Viability: 82% Markers run: cKappa, cLambda, HLA-DR, Azure, Lambda, CD2, CD3, CD4, CD5, CD7, CD8, CD10, CD11b, CD13, CD14, CD16, CD19, CD20, CD23, CD33, CD34, CD38, CD45, CD56, CD57, CD64, CD117, CD138, CD200 Num of Markers Run: 29 This result has been reviewed and approved by Kostas Miller M.D., Ph.D. 03/03/2024 INTERPRETIVE INFORMATION: Leuk/Lymph Phenotyping, Flow Cytometry This test was developed and its performance characteristics determined by [facility]. It has not been cleared or approved by the US Food and Drug Administration. This test was performed in a CLIA certified laboratory and is intended for clinical purposes. Performed By: [facility] [address] [place] [address] Adjunct Spanish Instructor: Sunny Roman MD, PhD CLIA Number: [id number] Performed By: #### M MMP, CRBM2, LPBM2 #### [address] [address] ANION GAPon 03-02-2024 Anion gap [Moles/Vol] 9.0 mmol/L Normal 8.0-16.0 [facility] Comment on above: Result Comment: ANIO N GAP = Sodium -(Chloride + CO2) Performed By: #### C RP, WSR #### [facility] [address] [address] Anion Gapon 03-02-2024 Anion gap [Moles/Vol] 9.0 mmol/L 8.0 - 16.0 meq/L [facility] Comment on above: ANION GAP = Sodium - (Chloride + CO2) Performed at [facility] [address] [place] [address] BASIC METABOL PANELon 2023 Calcium [Mass/Vol] 8.4 mg/dL Low 8.5-10.5 [facility] Comment on above: Performed By: #### C RP, WSR #### [facility] [address] [place] [address] Chloride [Moles/Vol] 100 mmol/L Normal 98-111 [facility] Comment on above: Performed By: #### C RP, WSR #### [facility] [address] [place] [address] CO2 [Moles/Vol] 29 mmol/L Normal 23-33 [facility] Comment on above: Performed By: #### C RP, WSR #### [facility] [address] [place] [address] Creatinine [Mass/Vol] 0.9 mg/dL Normal 0.4-1.2 [facility] Comment on above: Performed By: #### C RP, WSR #### [facility] [address] [place] [address] Glucose [Mass/Vol] 103 mg/dL Normal 70-108 [facility] Comment on above: Performed By: #### C RP, WSR #### [facility] [address] [place] [address] Potassium [Moles/Vol] 3.7 mmol/L Normal 3.5-5.2 [facility] Comment on above: Performed By: #### C RP, WSR #### [facility] [address] [place] [address] Sodium [Moles/Vol] 138 mmol/L Normal 135-145 [facility] Comment on above: Performed By: #### C RP, WSR #### [facility] [address] [place] [address] Urea nitrogen [Mass/Vol] 10 mg/dL Normal 7-22 [facility] Comment on above: Performed By: #### C RP, WSR #### [facility] [address] [place] [address] Basic metabolic 2000 panelon 03-02-2024 Calcium [Mass/Vol] 8.4 mg/dL Low 8.5 - 10. 5 mg/dL [facility] Comment on above: Performed at [facility] [address] [place] [address] Chloride [Moles/Vol] 100 mmol/L 98 - 111 meq/L [facility] CO2 [Moles/Vol] 29 mmol/L 23 - 33 meq/L [facility] Creatinine [Mass/Vol] 0.9 mg/dL 0.4 - 1.2 mg/dL [facility] Glucose [Mass/Vol] 103 mg/dL 70 - 108 mg/dL [facility] Interpretation and review of laboratory results Abnormal [facility] Potassium [Moles/Vol] 3.7 mmol/L 3.5 - 5.2 meq/L [facility] Sodium [Moles/Vol] 138 mmol/L 135 - 145 meq/L [facility] Urea nitrogen [Mass/Vol] 10 mg/dL 7 - 22 mg/dL [facility] CBC WITH DIFFERENTIALon 11-0 ATYPICAL LYMPH OCC. Normal [facility] Comment on above: Performed By: #### Irene ANDRES, SCAN1 #### [place] [address] PLATELET ESTIMATE SL DECREASED Normal Adequate [facility] Comment on above: Performed By: #### Irene ANDRES, SCAN1 #### [place] [address] SMUDGE CELLS Present Normal Absent [facility] Comment on above: Performed By: #### Irene ANDRES, SCAN1 #### [facility] [address] [place] [address] ABS BASOPHILS 0.0 thou/mm3 Normal 0.0-0.1 [facility] Comment on above: Performed By: #### Irene ANDRES, SCAN1 #### [address] [address] ABS EOSINOPHILS 0.0 thou/mm3 Normal 0.0-0.4 [facility] Comment on above: Performed By: #### Irene ANDRES, SCAN1 #### [facility] [address] [place] [address] ABS IMMATURE GRANS (IG) 0.08 thou/mm3 High 0.00-0.07 [facility] Comment on above: Performed By: #### Irene ANDRES, SCAN1 #### [facility] [address] [place] [address] ABS LYMPHOCYTES 0.7 thou/mm3 Low 1.0-4.8 [facility] Comment on above: Performed By: #### C DMITRY, SCAN1 #### [facility] [address] [place] [address] ABS MONOCYTES 0.1 thou/mm3 Low 0.4-1.3 [facility] Comment on above: Performed By: #### Irene ANDRES, SCAN1 #### [facility] [address] [place] [address] ABS NEUTROPHILS 0.9 thou/mm3 Low 1.8-7.7 [facility] Comment on above: Performed By: #### C DMITRY, SCAN1 #### [facility] [address] [place] [address] Basophils/100 WBC (Bld) 0.5 % Normal [facility] Comment on above: Performed By: #### C DMITRY, SCAN1 #### [facility] [address] [place] [address] Eosinophils/100 WBC (Bld) 2.6 % Normal [facility] Comment on above: Performed By: #### Irene ANDRES, SCAN1 #### [facility] [address] [place] [address] Erythrocyte distribution width (RBC) [Ratio] 12.1 % Normal 11.5-14.5 [facility] Comment on above: Performed By: #### Irene ANDRES, SCAN1 #### [facility] [address] [place] [address] Hematocrit (Bld) [Volume fraction] 33.8 % Low 42.0-52.0 [facility] Comment on above: Performed By: #### Irene ANDRES, SCAN1 #### [facility] [address] [place] [address] Hemoglobin (Bld) [Mass/Vol] 11.6 g/dL Low 14.0-18.0 [facility] Comment on above: Performed By: #### C DMITRY, SCAN1 #### [facility] [address] [place] [address] IMMATURE GRANS (IG) 4.2 % Normal [facility] Comment on above: Performed By: #### Irene ANDRES, SCAN1 #### [facility] [address] [address] Lymphocytes/100 WBC (Bld) 37.0 % Normal [facility] Comment on above: Performed By: #### Irene ANDRES, SCAN1 #### [address] [address] MCH (RBC) [Entitic mass] 30.9 pg Normal 26.0-33.0 [facility] Comment on above: Performed By: #### Irene ANDRES, SCAN1 #### [address] [address] MCHC (RBC) [Mass/Vol] 34.3 g/dL Normal 32.2-35.5 [facility] Comment on above: Performed By: #### Irene ANDRES, SCAN1 #### [address] [address] MCV (RBC) [Entitic vol] 90.1 fL Normal 80.0-94.0 [facility] Comment on above: Performed By: #### Irene ANDRES, SCAN1 #### [address] [address] Monocytes/100 WBC (Bld) 7.8 % Normal [facility] Comment on above: Performed By: #### Irene ANDRES, SCAN1 #### [address] [address] Neutrophils/100 WBC (Bld) 47.9 % Normal [facility] Comment on above: Performed By: #### Irene ANDRES, SCAN1 #### [address] [address] NRBC 0 /100 wbc Normal [facility] Comment on above: Performed By: #### Irene ANDRES, SCAN1 #### [address] [address] PLATELET 100 thou/mm3 Low 130-400 [facility] Comment on above: Performed By: #### Irene ANDRES, SCAN1 #### [facility] [address] [place] [address] Platelet mean volume (Bld) [Entitic vol] 11.4 fL Normal 9.4-12.4 [facility] Comment on above: Performed By: #### C DMITRY, SCAN1 #### [facility] [address] [place] [address] RBC 3.75 mill/mm3 Low 4.70-6.10 [facility] Comment on above: Performed By: #### C DMITRY, SCAN1 #### [facility] [address] [place] [address] RDW-SD 40.8 fL Normal 35.0-45.0 [facility] Comment on above: Performed By: #### C DMITRY, SCAN1 #### [facility] [address] [place] [address] WBC 1.9 thou/mm3 Low 4.8-10.8 [facility] Comment on above: Performed By: #### C DMITRY, SCAN1 #### [facility] [address] [place] [address] CBC with Auto Differentialon 03-02-2024 Basophils (Bld) [...] [#/Vol] 3.75 10*6/uL Low [facility] Smudge cells LM Ql (Bld) Present Absent [facility] Comment on above: Performed at [facility] [address] [place] [address] Variant lymphocytes LM Ql (Bld) OCC. % [facility] WBC (Bld) [#/Vol] 1.9 10*3/uL Low Bon [facility] EKG Rhythm Stripon [facility] FRANCES VARNER VIRUS ANTIBODIE Son 03-02-2024 FRANCES VARNER VIRUS ANTIBODIES SEE BELOW Normal [facility] Comment on above: Result Comment: [...] helpful. 11.0 U/mL or greater....Detected Performed By: [facility] [address] [place] [address] Adjunct Spanish Instructor: Sunny Roman MD, PhD CLIA Number: [id number] Performed By: #### M MMP, CRBM2, LPBM2 #### [facility] [address] [facility] [address] Frances varner virus (EBV) ant ibody panel Ion 03-02-2024 FRANCES-VARNER VIRUS ANTIBODIES SEE BELOW [facility] Comment on above: EBV Ab to Viral [...] helpful. 11.0 U/mL or greater....Detected Performed By: [facility] [address] [place] [address] Adjunct Spanish Instructor: Sunny Roman MD, PhD CLIA Number: [id number] [facility] GFR, ESTIMATEDon 03-02-2024 GFR/1.73 sq M.predicted MDRD (S/P/Bld) [Vol rate/Area] mL/min/{1.73_m2} Normal >60 [facility] Comment on above: Pediatric calculator link https://www.kidney.org/professionals/kdoqi/gfr_calculatorped [...] that affects renal tubular [place]. [place] [address] Result Comment: Danyel atric calculator link https://www.kidney.org/professionals/kdoqi/gfr_calculatorped [...] Performed By: #### C RP, WSR #### [place] [address] No Panel Informationon 03-02 [facility] [employer] [facility] SCAN OF BLOOD SMEARon 2023 SCAN OF BLOOD SMEAR see below Normal [facility] Comment on above: Criteria Exceeded; S can of Differential Slide [place] [address] Result Comment: Nichole larkin Exceeded; Scan of Differential Slide Performed Performed By: #### C BCWD, SCAN1 #### [place] [address] BLOOD SMEAR REVIEWon 024 PATHOLOGIST REVIEWED Estefani FUNES Normal [facility] Comment on above: Result Comment: Panc ytopenia with normocytic anemia. No circulating blasts. No platelet clumps. Clinical correlation is recommended. Performed By: #### M MMP, CRBM2, LPBM2 #### [facility] [address] [place] [address] SMEAR REVIEWED BY PATHOLOGIST see below Normal [facility] Comment on above: Result Comment: See Below Performed By: #### M MMP, CRBM2, LPBM2 #### [facility] [address] [facility] [address] CBC WITH DIFFERENTIALon PATHOLOGIST REVIEWED PCF Normal [facility] Comment on above: Performed By: #### C VFLU #### [place] [address] ATYPICAL LYMPH OCC. Normal [facility] Comment on above: Performed By: #### C VFLU #### [facility] [address] [facility] [place] [address] ABS BASOPHILS 0.0 thou/mm3 Normal 0.0-0.1 [facility] Comment on above: Performed By: #### C VFLU #### [facility] [address] [facility] [place] [address] ABS EOSINOPHILS 0.0 thou/mm3 Normal 0.0-0.4 [facility] Comment on above: Performed By: #### C VFLU #### [address] [place] [address] ABS IMMATURE GRANS (IG) 0.09 thou/mm3 High 0.00-0.07 [facility] Comment on above: Performed By: #### C VFLU #### [address] [place] [address] ABS LYMPHOCYTES 0.5 thou/mm3 Low 1.0-4.8 [facility] Comment on above: Performed By: #### C VFLU #### [address] [place] [address] ABS MONOCYTES 0.1 thou/mm3 Low 0.4-1.3 [facility] Comment on above: Performed By: #### C VFLU #### [facility] [address] [place] [address], [place] [address] ABS NEUTROPHILS 1.1 thou/mm3 Low 1.8-7.7 [facility] Comment on above: Performed By: #### C VFLU #### [facility] [address] [place] [address], [place] [address] Basophils/100 WBC (Bld) 1.1 % Normal [facility] Comment on above: Performed By: #### C VFLU #### [facility] [address] [place] [address], [place] [address] Eosinophils/100 WBC (Bld) 1.7 % Normal [facility] Comment on above: Performed By: #### C VFLU #### [address] [place] [address] Erythrocyte distribution width (RBC) [Ratio] 12.3 % Normal 11.5-14.5 [facility] Comment on above: Performed By: #### C VFLU #### [facility] [address] [place] [address] Hematocrit (Bld) [Volume fraction] 38.2 % Low 42.0-52.0 [facility] Comment on above: Performed By: #### C VFLU #### [facility] [address] [place] [address] Hemoglobin (Bld) [Mass/Vol] 12.9 g/dL Low 14.0-18.0 [facility] Comment on above: Performed By: #### C VFLU #### [address] [address] IMMATURE GRANS (IG) 5.0 % Normal [facility] Comment on above: Performed By: #### C VFLU #### [address] [address] Lymphocytes/100 WBC (Bld) 26.3 % Normal [facility] Comment on above: Performed By: #### C VFLU #### [address] [address] MCH (RBC) [Entitic mass] 30.2 pg Normal 26.0-33.0 [facility] Comment on above: Performed By: #### C VFLU #### [address] [address] MCHC (RBC) [Mass/Vol] 33.8 g/dL Normal 32.2-35.5 [facility] Comment on above: Performed By: #### C VFLU #### [address] [address] MCV (RBC) [Entitic vol] 89.5 fL Normal 80.0-94.0 [facility] Comment on above: Performed By: #### C VFLU #### [address] [address] Monocytes/100 WBC (Bld) 5.6 % Normal [facility] Comment on above: Performed By: #### C VFLU #### [address] [address] Neutrophils/100 WBC (Bld) 60.3 % Normal [facility] Comment on above: Performed By: #### C VFLU #### [address] [address] NRBC 0 /100 wbc Normal [facility] Comment on above: Performed By: #### C VFLU #### [address] [address] PLATELET 86 thou/mm3 Low 130-400 [facility] Comment on above: Performed By: #### C VFLU #### [address] [address] Platelet mean volume (Bld) [Entitic vol] 11.2 fL Normal 9.4-12.4 [facility] Comment on above: Performed By: #### C VFLU #### [address] [address] RBC 4.27 mill/mm3 Low 4.70-6.10 [facility] Comment on above: Performed By: #### C VFLU #### [address] [address] RDW-SD 40.0 fL Normal 35.0-45.0 [facility] Comment on above: Performed By: #### C VFLU #### [address] [address] WBC 1.8 thou/mm3 Low 4.8-10.8 [facility] Comment on above: Performed By: #### C VFLU #### [address] [address] CBC with Auto Differentialon 03-01-2024 Basophils (Bld) [...] [facility] Comment on above: Performed at [facility] [address] [place] [address] Pathologist Review PCF [facility] [...] ox monitoring devices by a registered nurse. Eakn-df-piqq time with patient 10 minutes. PROCEDURE: Signed [...] utilizing coaxial technique and handed to the ballistics laboratory gunsmith for processing and evaluation. Post procedure CT [...] Kostas Mendoza MD 03/01/24 Final result Normal [facility] CT Guidance for biopsy of Cosmo ne marrowon 03-01-2024 Status post successf ul CT guided bone marrow biopsy. This report has been created using voice recognition software. It may contain minor errors which are inherent in voice recognition technology. Electronically signed by Dr Kostas Mendoza [facility] CT-GUIDED BONE MARRO W BIOPSY: CLINICAL INFORMATION: [...] ox monitoring devices by a registered nurse. Bdpe-kc-tilt time with patient 10 minutes. PROCEDURE: Signed [...] utilizing coaxial technique and handed to the ballistics laboratory gunsmith for processing and evaluation. Post procedure CT images revealed no significant post biopsy hemorrhage... At the end of the procedure, hemostasis was obtained with manual pressure The patient tolerated the procedure well. ALL CT SCANS AT THIS FACILITY use dose modulation, iterative reconstruction, and/or weight-based dosing when appropriate to reduce radiation dose to as low as reasonably achievable. [facility] Kostas Morelos MD - 03/01/2024 CT-GUIDED BONE [...] ox monitoring devices by a registered nurse. Nkkr-hj-halg time with patient 10 minutes. PROCEDURE: Signed [...] utilizing coaxial technique and handed to the ballistics laboratory gunsmith for processing and evaluation. Post procedure CT [...] technology. Electronically signed by Dr Kostas Mendoza [facility] [employer] Radiology Study observation (narrative) [employer] CT Guidance for biopsy of Cosmo ne marrowOrdered By: Kostas Mendoza on 03-01-2024 [employer] Phone: EKG 12 LeadOrdered By: Julito Morris on 03-01-2024 Atrial Rate 87 BPM [employer] Phone: P [place] 73 degrees [employer] Phone: P-R Interval 140 ms [employer] Phone: Q-T Interval 378 ms [employer] Phone: QRS Duration 104 ms [employer] Phone: QTc Calculation (Bazett) 454 ms [employer] Phone: R [place] 72 degrees [employer] Phone: T [place] 42 degrees [employer] Phone: Ventricular Rate 87 BPM [employer] Phone: [employer] Phone: EKG 12 Leadon 03-01-2024 Normal sinus [...] ([id number]) on 03/01/2024 1:00:05 PM [facility] EKG Rhythm Stripon 4 75 PACEART [facility] 81 PACEART [facility] hr 86 PACEART [facility] No Panel Informationon 03-01 [facility] Path Review, Smearon 024 REVIEWED BY Estefani FUNES [facility] Comment on above: Pancytopenia with no rmocytic anemia. No circulating blasts. No platelet clumps. Clinical correlation [place] [address] Smear Review see below [facility] Comment on above: See Below SCAN OF BLOOD SMEARon 2023 SCAN OF BLOOD SMEAR see below Normal [facility] Comment on above: Criteria Exceeded; S can of Differential Slide Performed Performed at [facility] [place] [address] Result Comment: Crit eria Exceeded; Scan of Differential Slide Performed Performed By: #### C VFLU #### [place] [address] SURGICALon 03-01-2024 SURGICAL [facility] JAYME Reji ETHAN [id number] Assoc. Page [address] of [address] [place] [address] PROC: 03/01/2024 [facility] RECV: 03/01/2024 [facility] RPTD: 03/04/2024 [place] [address] LOC: 4A ACCT: [id number] SEX: M : 1990 AGE: 33 Y [...] x 2.0 x 0.7 cm in aggregate. Curtain Stitcher blood clot is submitted in one cassette [...] currently pending. Please see separate reference reports. [id number] x 2 LIZY BRISCOE M.D., F.C.A.P. [facility] Printed on: 03/04/[address] [place] [address] Original print date: 03/04/2024 Normal [facility] Scan of Blood Smearon 2023 [facility] ANION GAPon 02-29-2024 Anion gap [Moles/Vol] 13.0 mmol/L Normal 8.0-16.0 [facility] Comment on above: Result Comment: ANIO N GAP = Sodium -(Chloride + CO2) Performed By: #### C VFLU #### [address] [address] Anion Gapon 02-29-2024 Anion gap [Moles/Vol] 13.0 mmol/L 8.0 - 16.0 meq/L [facility] Comment on above: ANION GAP = Sodium - (Chloride + CO2) Performed at [facility] [address] [place] [address] BASIC METABOL PANELon 2023 Calcium [Mass/Vol] 8.3 mg/dL Low 8.5-10.5 [facility] Comment on above: Performed By: #### C VFLU #### [facility] [address] [place] [address] Chloride [Moles/Vol] 102 mmol/L Normal 98-111 [facility] Comment on above: Performed By: #### C VFLU #### [facility] [address] [place] [address] CO2 [Moles/Vol] 24 mmol/L Normal 23-33 [facility] Comment on above: Performed By: #### C VFLU #### [facility] [address] [facility] [address] [place] [address] Creatinine [Mass/Vol] 1.1 mg/dL Normal 0.4-1.2 [facility] Comment on above: Performed By: #### C VFLU #### [facility] [address] [facility] [address] [place] [address] Glucose [Mass/Vol] 96 mg/dL Normal 70-108 [facility] Comment on above: Performed By: #### C VFLU #### [facility] [address] [place] [address] Potassium [Moles/Vol] 3.7 mmol/L Normal 3.5-5.2 [facility] Comment on above: Performed By: #### C VFLU #### [address] [address] Sodium [Moles/Vol] 139 mmol/L Normal 135-145 [facility] Comment on above: Performed By: #### C VFLU #### [facility] [address] [facility] [address] [place] [address] Urea nitrogen [Mass/Vol] 13 mg/dL Normal 7-22 [facility] Comment on above: Performed By: #### C VFLU #### [facility] [address] [address] Basic metabolic 2000 panelon 02-29-2024 Calcium [Mass/Vol] 8.3 mg/dL Low 8.5 - 10. 5 mg/dL [facility] Comment on above: Performed at [facility] [address] [place] [address] Chloride [Moles/Vol] 102 mmol/L 98 - 111 meq/L [facility] CO2 [Moles/Vol] 24 mmol/L 23 - 33 meq/L [facility] Creatinine [Mass/Vol] 1.1 mg/dL 0.4 - 1.2 mg/dL [facility] Glucose [Mass/Vol] 96 mg/dL 70 - 108 mg/dL [facility] Interpretation and review of laboratory results Abnormal [facility] Potassium [Moles/Vol] 3.7 mmol/L 3.5 - 5.2 meq/L [facility] Sodium [Moles/Vol] 139 mmol/L 135 - 145 meq/L [facility] Urea nitrogen [Mass/Vol] 13 mg/dL 7 - 22 mg/dL [facility] C-REACTIVE PROTEINon 024 C-REACTIVE PROTEIN 4.49 mg/dl High 0.00-1.00 [facility] Comment on above: Performed By: #### C RP, WSR #### [facility] [place] [address] C-Reactive Proteinon 024 CRP [Mass/Vol] 4.49 mg/dl High 0.00 - 1.00 mg/dl [facility] Comment on above: Performed at [facility] [address] [place] [address] CALCIUM (IONIZED) * WBon CALCIUM (IONIZED) * WB 1.11 mmol/L Low 1.12-1.32 [facility] Comment on above: Performed By: #### C VFLU #### [facility] [place] [address] CBC WITH DIFFERENTIALon 01-31 PLATELET ESTIMATE DECREASED Normal Adequate [facility] Comment on above: Performed By: #### C VFLU #### [place] [address] SMUDGE CELLS Present Normal Absent [facility] Comment on above: Performed By: #### C VFLU #### [facility] [address] [address] ABS BASOPHILS 0.0 thou/mm3 Normal 0.0-0.1 [facility] Comment on above: Performed By: #### C VFLU #### [facility] [address] [facility] [address] [place] [address] ABS EOSINOPHILS 0.0 thou/mm3 Normal 0.0-0.4 [facility] Comment on above: Performed By: #### C VFLU #### [address] [address] ABS IMMATURE GRANS (IG) 0.05 thou/mm3 Normal 0.00-0.07 [facility] Comment on above: Performed By: #### C VFLU #### [facility] [address] [place] [address] ABS LYMPHOCYTES 0.4 thou/mm3 Low 1.0-4.8 [facility] Comment on above: Performed By: #### C VFLU #### [facility] [address] [place] [address] ABS MONOCYTES 0.1 thou/mm3 Low 0.4-1.3 [facility] Comment on above: Performed By: #### C VFLU #### [facility] [address] [place] [address] ABS NEUTROPHILS 0.9 thou/mm3 Low 1.8-7.7 [facility] Comment on above: Performed By: #### C VFLU #### [address] [address] Basophils/100 WBC (Bld) 1.4 % Normal [facility] Comment on above: Performed By: #### C VFLU #### [address] [address] Eosinophils/100 WBC (Bld) 0.7 % Normal [facility] Comment on above: Performed By: #### C VFLU #### [address] [address] Erythrocyte distribution width (RBC) [Ratio] 12.0 % Normal 11.5-14.5 [facility] Comment on above: Performed By: #### C VFLU #### [address] [address] Hematocrit (Bld) [Volume fraction] 36.0 % Low 42.0-52.0 [facility] Comment on above: Performed By: #### C VFLU #### [address] [address] Hemoglobin (Bld) [Mass/Vol] 12.2 g/dL Low 14.0-18.0 [facility] Comment on above: Performed By: #### C VFLU #### [address] [address] IMMATURE GRANS (IG) 3.4 % Normal [facility] Comment on above: Performed By: #### C VFLU #### [address] [address] Lymphocytes/100 WBC (Bld) 25.0 % Normal [facility] Comment on above: Performed By: #### C VFLU #### [address] [address] MCH (RBC) [Entitic mass] 30.7 pg Normal 26.0-33.0 [facility] Comment on above: Performed By: #### C VFLU #### [address] [address] MCHC (RBC) [Mass/Vol] 33.9 g/dL Normal 32.2-35.5 [facility] Comment on above: Performed By: #### C VFLU #### [address] [address] MCV (RBC) [Entitic vol] 90.5 fL Normal 80.0-94.0 [facility] Comment on above: Performed By: #### C VFLU #### [address] [address] Monocytes/100 WBC (Bld) 7.4 % Normal [facility] Comment on above: Performed By: #### C VFLU #### [address] [address] Neutrophils/100 WBC (Bld) 62.1 % Normal [facility] Comment on above: Performed By: #### C VFLU #### [address] [address] NRBC 0 /100 wbc Normal [facility] Comment on above: Performed By: #### C VFLU #### [address] [address] PLATELET 89 thou/mm3 Low 130-400 [facility] Comment on above: Performed By: #### C VFLU #### [address] [address] Platelet mean volume (Bld) [Entitic vol] 10.7 fL Normal 9.4-12.4 [facility] Comment on above: Performed By: #### C VFLU #### [facility] [address] [place] [address] RBC 3.98 mill/mm3 Low 4.70-6.10 [facility] Comment on above: Performed By: #### C VFLU #### [facility] [address] [place] [address] RDW-SD 40.1 fL Normal 35.0-45.0 [facility] Comment on above: Performed By: #### C VFLU #### [facility] [address] [place] [address] WBC 1.5 thou/mm3 Low 4.8-10.8 [facility] Comment on above: Performed By: #### C VFLU #### [facility] [address] [facility] [address] [place] [address] CBC with Auto Differentialon 02-29-2024 Basophils (Bld) [...] Comment on above: Performed at [facility] [address] [place] [address] WBC (Bld) [#/Vol] 1.5 10*3/uL Low [facility] CRP [Mass/Vol]on 02-29-2024 Interpretation and review of laboratory results Abnormal [facility] Calcium, Ionizedon Calcium.ionized ISE (Bld) [Moles/Vol] 1.11 mmol/L Low 1.12 - 1.32 mmol/L [facility] Comment on above: Performed at [facility] [address] [place] [address] EKG 12-LEADon 02-29-2024 EKG 12-LEAD 87 87 140 104 378 454 73 72 42 Normal sinus rhythm Nonspecific T wave abnormality Abnormal ECG When compared with ECG of 28-FEB-2024 20:02, No significant change was found Confirmed by NAYELI MORRIS ([id number]) on 03/01/2024 1:00:05 PM [email or web address] RetrieveTestByDateTime ?RyjioyqAE=[id number]&D ate=29-02-2024&Time=20 %3a57%3a59%3a00&TestTy pe=ECG&Site=3&OutputTy pe=PDF&Ext=PDF Normal [facility] ESR Westergren method (Bld) [Velocity]on 02-29-2024 ESR (Bld) [Velocity] 10 mm/h [facility] Comment on above: Performed at [facility] [address] [place] [address] [facility] Electrophoresis Protein, Ser umon 02-29-2024 Protein Electrophoresis, Serum SEE BELOW [facility] Comment on above: Total Protein, Serum 6.5 [...] See Note Authorized individuals can access the [employer] Enhanced Report using the following link: [email or web address] Performed By: [facility] [address] [place] [address] Adjunct Spanish Instructor: Sunny Roman MD, PhD CLIA Number: [id number] [facility] FERRITINon 02-29-2024 Ferritin [Mass/Vol] 1435 ng/mL High 22-322 [facility] Comment on above: Performed By: #### C RP, WSR #### [facility] [address] [place] [address] Ferritinon 02-29-2024 Ferritin [place] [Mass/Vol] 1435 ng/mL High 22 - 322 ng/mL [facility] Comment on above: Performed at [facility] [address] [place] [address] GFR, ESTIMATEDon 02-29-2024 GFR/1.73 sq M.predicted MDRD (S/P/Bld) [Vol rate/Area] mL/min/{1.73_m2} Normal >60 [facility] Comment on above: Pediatric calculator link [...] renal tubular secretion. Performed at [facility] [address] [address] Result Comment: Pedi atric calculator link [email or web address] [...] secretion. Performed By: #### C VFLU #### [facility] [address] [place] [address] HEPATIC FUNCTION PANELon Albumin [Mass/Vol] 3.3 g/dL Low 3.5-5.1 [facility] Comment on above: Performed By: #### C RP, WSR #### [facility] [address] [place] [address] ALP [Catalytic activity/Vol] 89 U/L Normal 38-126 [facility] Comment on above: Performed By: #### C RP, WSR #### [facility] [address] [place] [address] ALT [Catalytic activity/Vol] 49 U/L Normal 11-66 [facility] Comment on above: Performed By: #### C RP, WSR #### [facility] [address] [place] [address] AST [Catalytic activity/Vol] 61 U/L High 5-40 [facility] Comment on above: Performed By: #### C RP, WSR #### [facility] [address] [place] [address] Bilirubin [Mass/Vol] 0.7 mg/dL Normal 0.3-1.2 [facility] Comment on above: Performed By: #### C RP, WSR #### [facility] [address] [place] [address] Bilirubin.direct [Mass/Vol] 0.3 mg/dL Normal 0.1-13.8 [facility] Comment on above: Performed By: #### C RP, WSR #### [facility] [address] [place] [address] Protein [Mass/Vol] 5.8 g/dL Low 6.1-8.0 [facility] Comment on above: Performed By: #### C RP, WSR #### [facility] [address] [place] [address] HIV 1+2 Ab+HIV1 p24 Ag IA Ql on 02-29-2024 [facility] HIV AG/ABon 02-29-2024 HIV AG/AB SEE BELOW Normal [facility] Comment on above: Result Comment: HIV Ag/Ab NONREACTIVE NR No laboratory evidence of HIV infection. If acute HIV infection is suspected, consider testing for HIV-1 RNA. Performed at [facility], [address] [place] [address] . Performed By: #### C RP, WSR #### [facility] [address] [place] [address] HIV Screenon 02-29-2024 HIV 1+2 Ab+HIV1 p24 Ag IA Ql SEE BELOW [facility] Comment on above: HIV Ag/Ab NONREACTIV E NR No laboratory evidence of HIV infection. If acute HIV infection is suspected, consider testing for HIV-1 RNA. Performed at [facility], [address] [place] [address] . Hepatic function 2000 panelo n 02-29-2024 Albumin BCG dye [Mass/Vol] 3.3 g/dL Low 3.5 - 5.1 g/dL [facility] ALP [Catalytic activity/Vol] 89 U/L 38 - 126 U/L [facility] ALT No additional P-5'-P [Catalytic activity/Vol] 49 U/L 11 - 66 U/L [facility] AST [Catalytic activity/Vol] 61 U/L High 5 - 40 U/L [facility] Bilirubin [Mass/Vol] 0.7 mg/dL 0.3 - 1.2 mg/dL [facility] Bilirubin.conjugate d [Mass/Vol] 0.3 mg/dL 0.1 - 13.8 mg/dL [facility] Protein [Mass/Vol] 5.8 g/dL Low 6.1 - 8.0 g/dL [facility] Comment on above: Performed at [facility] [address] [place] [address] IRONon 02-29-2024 Iron [Mass/Vol] 31 ug/dL Low 65-195 [facility] Comment on above: Performed By: #### Irene GUPTA, WSR #### [facility] [address] [place] [address] IRON BINDING CAPACITYon 01-31 IRON BINDING CAPACITY 199 ug/dL Normal 171-450 [facility] Comment on above: Performed By: #### Irene GUPTA, WSR #### [facility] [address] [place] [address] IRON SATURATIONon 02-29-2024 Iron saturation [Mass fraction] 16 % Low 20 - 50 % [facility] Comment on above: Performed at [facility] [address] [place] [address] IRON SATURATION 16 % Low 20-50 [facility] Comment on above: Performed By: #### Irene GUPTA, WSR #### [facility] [address] [place] [address] Ironon 02-29-2024 Iron [Mass/Vol] 31 ug/dL Low 65 - 195 ug/dL [facility] Comment on above: Performed at [facility] [address] [place] [address] Iron binding capacityon 01-31 Iron binding capacity [Mass/Vol] 199 ug/dL 171 - 450 ug/dL [facility] Comment on above: Performed at [facility] [address] [place] [address] MR Brain WO and W contrast I Von 02-29-2024 No acute intracrania l findings. This document has been electronically signed by: Jadon Bhatti MD on 02/29/2024 02:17 AM [facility] MRI Brain W/WO Contrast COMPARISON: None FINDINGS: No evidence of acute infarction. No acute intracranial hemorrhage. No mass-effect or midline shift. No abnormal enhancement. No hydrocephalus. Clear paranasal sinuses. Clear mastoid air cells. Unremarkable orbits. [facility] Jadon Bhatti MD - 02/29/2024 MRI Brain W/WO Contrast COMPARISON: None FINDINGS: No evidence of acute infarction. No acute intracranial hemorrhage. No mass-effect or midline shift. No abnormal enhancement. No hydrocephalus. Clear paranasal sinuses. Clear mastoid air cells. Unremarkable orbits. IMPRESSION: No acute intracranial findings. This document has been electronically signed by: Jadon Bhatti MD on 02/29/2024 02:17 AM [facility] MR Brain WO and W contrast I VOrdered By: Jadon Bhatti on 02-29-2024 [facility] Work Phone: MRI BRAIN W WO CONTRASTon [...] Jadon Bhatti MD 02/29/24 Final result Normal [facility] No Panel Informationon 02-28 Interpretation and review of laboratory results Abnormal [facility] Interpretation and review of laboratory results Abnormal [facility] PROTEIN ELECTRO., SERUMon PROTEIN ELECTRO., SERUM SEE BELOW Normal [facility] Comment on above: Result Comment: [...] See Note Authorized individuals can access the [employer] Enhanced Report using the following link: [email or web address] Performed By: [facility] [address] [place] [address] Adjunct Spanish Instructor: Sunny Roman MD, PhD CLIA Number: [id number] Performed By: #### C RP, WSR #### [facility] [address] [place] [address] SCAN OF BLOOD SMEARon 2023 SCAN OF BLOOD SMEAR see below [facility] Comment on above: Criteria Exceeded; S can of Differential Slide Performed Performed at [facility] [address] [place] [address] Result Comment: Crit eria Exceeded; Scan of Differential Slide Performed Performed By: #### C RP, WSR #### [facility] [address] [place] [address] SED RATEon 02-29-2024 SED RATE 10 mm/hr Normal 0-10 [facility] Comment on above: Performed By: #### C RP, WSR #### [facility] [address] [place], [place] [id number] ANION GAPon 02-28-2024 Anion gap [Moles/Vol] 14.0 mmol/L Normal 8.0-16.0 [facility] Comment on above: Result Comment: ANIO N GAP = Sodium -(Chloride + CO2) Performed By: #### M MIC CRBM2, LPBM2 #### [facility] [address] [facility] [place] [address] APTTon 02-28-2024 aPTT Coag (Bld) [Time] 24.6 s Normal 22.0-38.0 [facility] Comment on above: Result Comment: Ther apeutic Heparin Reference Range= 60-95 seconds (corresponds to 0.3 to 0.7 u/mL Anti-Xa factor activity) Performed By: #### M MIC, OSMANYBM2, LPBM2 #### [facility] [address] [facility] [place] [address] Anion Gapon 02-28-2024 Anion gap [Moles/Vol] 14.0 mmol/L 8.0 - 16.0 meq/L [facility] Comment on above: ANION GAP = Sodium - (Chloride + CO2) Performed at [facility] [address] [place] [address] CBC WITH DIFFERENTIALon 01-31 ABS BASOPHILS 0.0 thou/mm3 Normal 0.0-0.1 [facility] Comment on above: Performed By: #### M MIC, CRBM2, LPBM2 #### [facility] [address] [facility] [place] [address] ABS EOSINOPHILS 0.0 thou/mm3 Normal 0.0-0.4 [facility] Comment on above: Performed By: #### M MMP, CRBM2, LPBM2 #### [facility] [address] [facility] [place] [address] ABS IMMATURE GRANS (IG) 0.03 thou/mm3 Normal 0.00-0.07 [facility] Comment on above: Performed By: #### M MIC, CRBM2, LPBM2 #### [facility] [address] [place] [address] ABS LYMPHOCYTES 0.4 thou/mm3 Low 1.0-4.8 [facility] Comment on above: Performed By: #### M MMP, CRBM2, LPBM2 #### [facility] [address] [facility] [place] [address] ABS MONOCYTES 0.2 thou/mm3 Low 0.4-1.3 [facility] Comment on above: Performed By: #### M MMP, CRBM2, LPBM2 #### [facility] [address] [facility] [address] ABS NEUTROPHILS 1.6 thou/mm3 Low 1.8-7.7 [facility] Comment on above: Performed By: #### M MMP, CRBM2, LPBM2 #### [facility] [address] [facility] [address] Basophils/100 WBC (Bld) 1.7 % Normal [facility] Comment on above: Performed By: #### M MMP, CRBM2, LPBM2 #### [facility] [address] [facility] [address] Eosinophils/100 WBC (Bld) 0.9 % Normal [facility] Comment on above: Performed By: #### M MMP, CRBM2, LPBM2 #### [facility] [address] [facility] [address] Erythrocyte distribution width (RBC) [Ratio] 12.2 % Normal 11.5-14.5 [facility] Comment on above: Performed By: #### M MMP, CRBM2, LPBM2 #### [facility] [address] [facility] [address] Hematocrit (Bld) [Volume fraction] 39.2 % Low 42.0-52.0 [facility] Comment on above: Performed By: #### M MMP, CRBM2, LPBM2 #### [facility] [address] [facility] [address] Hemoglobin (Bld) [Mass/Vol] 13.1 g/dL Low 14.0-18.0 [facility] Comment on above: Performed By: #### M MMP, CRBM2, LPBM2 #### [facility] [address] [facility] [address] IMMATURE GRANS (IG) 1.3 % Normal [facility] Comment on above: Performed By: #### M MMP, CRBM2, LPBM2 #### [facility] [address] [facility] [address] Lymphocytes/100 WBC (Bld) 17.7 % Normal [facility] Comment on above: Performed By: #### M MMP, CRBM2, LPBM2 #### [facility] [address] [facility] [place] [address] MCH (RBC) [Entitic mass] 30.2 pg Normal 26.0-33.0 [facility] Comment on above: Performed By: #### M MMP, CRBM2, LPBM2 #### [facility] [address] [facility] [place] [address] MCHC (RBC) [Mass/Vol] 33.4 g/dL Normal 32.2-35.5 [facility] Comment on above: Performed By: #### M MMP, CRBM2, LPBM2 #### [facility] [address] [facility] [place] [address] MCV (RBC) [Entitic vol] 90.3 fL Normal 80.0-94.0 [facility] Comment on above: Performed By: #### M MMP, CRBM2, LPBM2 #### [facility] [address] [facility] [address] Monocytes/100 WBC (Bld) 8.2 % Normal [facility] Comment on above: Performed By: #### M MMP, CRBM2, LPBM2 #### [facility] [address] [facility] [place] [address] Neutrophils/100 WBC (Bld) 70.2 % Normal [facility] Comment on above: Performed By: #### M MMP, CRBM2, LPBM2 #### [facility] [address] [facility] [place] [address] NRBC 0 /100 wbc Normal [facility] Comment on above: Performed By: #### M MMP, CRBM2, LPBM2 #### [facility] [address] [facility] [place] [address] PLATELET 107 thou/mm3 Low 130-400 [facility] Comment on above: Performed By: #### M MMP, CRBM2, LPBM2 #### [facility] [address] [facility] [place] [address] Platelet mean volume (Bld) [Entitic vol] 10.7 fL Normal 9.4-12.4 [facility] Comment on above: Performed By: #### M MMP, CRBM2, LPBM2 #### [facility] [address] [facility] [place] [address] RBC 4.34 mill/mm3 Low 4.70-6.10 [facility] Comment on above: Performed By: #### M MMP, CRBM2, LPBM2 #### [facility] [address] [place] [address] RDW-SD 40.4 fL Normal 35.0-45.0 [facility] Comment on above: Performed By: #### M MMP, CRBM2, LPBM2 #### [facility] [address] [place] [address] WBC 2.3 thou/mm3 Low 4.8-10.8 [facility] Comment on above: Performed By: #### M MMP, CRBM2, LPBM2 #### [facility] [address] [place] [address] CBC with Auto Differentialon 02-28-2024 Basophils (Bld) [...] [facility] Comment on above: Performed at [facility] [address] [place] [address] Platelets (Bld) [#/Vol] 107 10*3/uL Low [facility] RBC (Bld) [#/Vol] 4.34 10*6/uL Low [facility] WBC (Bld) [#/Vol] 2.3 10*3/uL Low [facility] COMP. METABOLIC PANELon 01-31 Albumin [Mass/Vol] 3.6 g/dL Normal 3.5-5.1 [facility] Comment on above: Performed By: #### M MMP, CRBM2, LPBM2 #### [facility] [address] [place] [address] ALP [Catalytic activity/Vol] 85 U/L Normal 38-126 [facility] Comment on above: Performed By: #### M MMP, CRBM2, LPBM2 #### [facility] [address] [place] [address] ALT [Catalytic activity/Vol] 39 U/L Normal 11-66 [facility] Comment on above: Performed By: #### M MMP, CRBM2, LPBM2 #### [facility] [address] [place] [address] AST [Catalytic activity/Vol] 45 U/L High 5-40 [facility] Comment on above: Performed By: #### M MMP, CRBM2, LPBM2 #### [facility] [address] [place] [address] Bilirubin [Mass/Vol] 0.8 mg/dL Normal 0.3-1.2 [facility] Comment on above: Performed By: #### M MMP, CRBM2, LPBM2 #### [facility] [address] [place] [address] Calcium [Mass/Vol] 8.5 mg/dL Normal 8.5-10.5 [facility] Comment on above: Performed By: #### M MMP, CRBM2, LPBM2 #### [facility] [address] [place] [address] Chloride [Moles/Vol] 101 mmol/L Normal 98-111 [facility] Comment on above: Performed By: #### M MMP, CRBM2, LPBM2 #### [facility] [address] [place] [address] CO2 [Moles/Vol] 25 mmol/L Normal 23-33 [facility] Comment on above: Performed By: #### M MMP, CRBM2, LPBM2 #### [facility] [address] [place] [address] Creatinine [Mass/Vol] 1.2 mg/dL Normal 0.4-1.2 [facility] Comment on above: Performed By: #### M MMP, CRBM2, LPBM2 #### [facility] [address] [place] [address] Glucose [Mass/Vol] 94 mg/dL Normal 70-108 [facility] Comment on above: Performed By: #### M MMP, CRBM2, LPBM2 #### [facility] [address] [facility] [place] [address] POTASSIUM WITH REFLEX MG 4.1 meq/L Normal 3.5-5.2 [facility] Comment on above: Performed By: #### M MMP, CRBM2, LPBM2 #### [facility] [address] [facility] [address] Protein [Mass/Vol] 6.2 g/dL Normal 6.1-8.0 [facility] Comment on above: Performed By: #### M MMP, CRBM2, LPBM2 #### [facility] [address] [facility] [address] Sodium [Moles/Vol] 140 mmol/L Normal 135-145 [facility] Comment on above: Performed By: #### M MMP, CRBM2, LPBM2 #### [facility] [address] [facility] [place] [address] Urea nitrogen [Mass/Vol] 15 mg/dL Normal 7-22 [facility] Comment on above: Performed By: #### M MMP, CRBM2, LPBM2 #### [facility] [address] [facility] [place] [address] Comprehensive metabolic 2000 panelon 02-28-2024 Albumin BCG dye [Mass/Vol] 3.6 g/dL 3.5 - 5.1 g/dL [facility] ALP [Catalytic activity/Vol] 85 U/L 38 - 126 U/L [facility] ALT No additional P-5'-P [Catalytic activity/Vol] 39 U/L 11 - 66 U/L [facility] Comment on above: Performed at [facility] [address] [place] [address] AST [Catalytic activity/Vol] 45 U/L High 5 - 40 U/L [facility] Bilirubin [Mass/Vol] 0.8 mg/dL 0.3 - 1.2 mg/dL [facility] Calcium [Mass/Vol] 8.5 mg/dL 8.5 - 10. 5 mg/dL [facility] Chloride [Moles/Vol] 101 mmol/L 98 - 111 meq/L [facility] CO2 [Moles/Vol] 25 mmol/L 23 - 33 meq/L [facility] Creatinine [Mass/Vol] 1.2 mg/dL 0.4 - 1.2 mg/dL [facility] Glucose [Mass/Vol] 94 mg/dL 70 - 108 mg/dL [facility] Interpretation and review of laboratory results Abnormal [facility] Potassium [Moles/Vol] 4.1 mmol/L 3.5 - 5.2 meq/L [facility] Protein [Mass/Vol] 6.2 g/dL 6.1 - 8.0 g/dL [facility] Sodium [Moles/Vol] 140 mmol/L 135 - 145 meq/L [facility] Urea nitrogen [Mass/Vol] 15 mg/dL 7 - 22 mg/dL [facility] EKG 12 Leadon 02-28-2024 Atrial Rate 91 BPM [facility] P [place] 69 degrees [facility] P-R Interval 142 ms [facility] Q-T Interval 360 ms [facility] QRS Duration 100 ms [facility] QTc Calculation (Bazett) 442 ms [facility] R [place] 70 degrees [facility] [place] 25 degrees [facility] Ventricular Rate 91 BPM [facility] Normal sinus rhythm Incomplete right bundle branch block Nonspecific T wave abnormality Abnormal ECG When compared with ECG of 28-FEB-2024 16:05, No significant change was found Confirmed by Arben Mercado ([id number]) on 02/28/2024 8:19:15 PM [facility] STR MUSE Unknown, Provider, M D - 02/28/2024 Normal sinus rhythm Incomplete right bundle branch block Nonspecific T wave abnormality Abnormal ECG When compared with ECG of 28-FEB-2024 16:05, No significant change was found Confirmed by Arben Mercado ([id number]) on 02/28/2024 8:19:15 PM [facility] Normal sinus rhythm Incomplete right bundle branch block Nonspecific ST and T wave abnormality Abnormal ECG No previous ECGs available Clinical correlation is indicated Confirmed by Arben Mercado ([id number]) on 02/28/2024 7:52:29 PM [facility] STR MUSE Unknown, Provider, M D - 02/28/2024 Normal sinus rhythm Incomplete right bundle branch block Nonspecific ST and T wave abnormality Abnormal ECG No previous ECGs available Clinical correlation is indicated Confirmed by Arben Mercado ([id number]) on 02/28/2024 7:52:29 PM [employer] EKG 12 LeadOrdered By: Provi kenya Unknown on 02-28-2024 Atrial Rate 78 BPM [employer] Work Phone: P [place] 56 degrees [employer] Work Phone: P-R Interval 154 ms [employer] Phone: Q-T Interval 386 ms [employer] Phone: QRS Duration 102 ms [employer] Work Phone: QTc Calculation (Bazett) 440 ms [employer] Work Phone: R [place] 63 degrees [employer] Work Phone: T [place] 19 degrees [employer] Phone: Ventricular Rate 78 BPM [facility] Work Phone: [employer] Work Phone: EKG 12-LEADon 02-28-2024 EKG 12-LEAD 91 91 142 100 [phone] Normal sinus rhythm Incomplete right bundle branch block Nonspecific T wave abnormality Abnormal ECG When compared with ECG of 28-FEB-2024 16:05, No significant change was found Confirmed by Arben Mercado ([id number]) on 02/28/2024 8:19:15 PM [email or web address] RetrieveTestByDateTime ?IulgqvmOD=[id number]&D ate=28-02-2024&Time=20 %3a02%3a02%3a00&TestTy pe=ECG&Site=3&OutputTy pe=PDF&Ext=PDF Normal [facility] EKG 12-LEAD 78 78 154 102 386 440 56 63 19 Normal sinus rhythm Incomplete right bundle branch block Nonspecific ST and T wave abnormality Abnormal ECG No previous ECGs available Clinical correlation is indicated Confirmed by Arben Mercado ([id number]) on 02/28/2024 7:52:29 PM [email or web address] RetrieveTestByDateTime ?TkglyisOT=[id number]&D ate=28-02-2024&Time=16 %3a05%3a49%3a00&TestTy pe=ECG&Site=3&OutputTy pe=PDF&Ext=PDF Normal [facility] EKG Rhythm Stripon PACEART [facility] GFR, ESTIMATEDon 02-28-2024 GFR/1.73 sq M.predicted MDRD (S/P/Bld) [Vol rate/Area] 83 mL/min/{1.73_m2} Normal >60 [facility] Comment on above: Pediatric calculator link https://www.kidney.org/professionals/kdoqi/gfr_calculatorped [...] that affects renal tubular secretion. Performed at [facility] [address] [place] [address] Result Comment: Pedi atric calculator link https://www.kidney.org/professionals/kdoqi/gfr_calculatorped [...] M MMP, CRBM2, LPBM2 #### [facility] [address] [place] [address] INR Coag (PPP) [Relative kurt e]on 02-28-2024 [facility] Influenza virus A and B RNA and SARS-CoV-2 (COVID-19) N gene panel MARIKA+probe (Resp)on 02-28-2024 FLUAV RNA MARIKA+probe Ql (Resp) Not detected NOT DETECTED [facility] FLUBV RNA MARIKA+probe Ql (Resp) Not detected NOT DETECTED [facility] Comment on above: Performed at [facility] [address] [place] [address] SARS-CoV-2 (COVID-19) RNA MARIKA+probe Ql (Resp) Not detected NOT DETECTED [facility] Comment on above: Not Detected results do [...] nasopharyngeal and nasal swab specimens. [facility] LDon 02-28-2024 LD 532 U/L High 100-190 [facility] Comment on above: Performed By: #### M MMP, CRBM2, LPBM2 #### [facility] [address] [facility] [address] Lactate Dehydrogenaseon 01-31 LDH Lactate to pyruvate reaction [Catalytic activity/Vol] 532 U/L High 100 - 190 U/L [facility] Comment on above: Performed at [facility] [address] [place] [address] MAGNESIUMon 02-28-2024 Magnesium [Mass/Vol] 2.3 mg/dL Normal 1.6-2.4 [facility] Comment on above: Performed By: #### C VFLU #### [facility] [employer] [address] [place] [address] MR Brain WO and W contrast I Von 02-28-2024 Radiology Study observation (narrative) [facility] Magnesiumon 02-28-2024 Magnesium [Mass/Vol] 2.3 mg/dL 1.6 - 2.4 mg/dL [facility] Comment on above: Performed at [facility] [address] [place] [address] Magnesium [Mass/Vol]on 02-27 [facility] No Panel Informationon 02-27 Interpretation and review of laboratory results Abnormal [facility] PROTHOMBIN TIMEon 02-28-2024 INR Coag (Bld) [Relative time] 1.13 {INR} Normal 0.85-1.13 [facility] Comment on above: Result Comment: ---- -----INDICATION INR Reference Range DVT, PE, AF, AMI, tissue heart valve 2.0 to 3.0 Mechanical prosthetic valves 2.5 to 3.5 Performed By: #### M MMP, CRBM2, LPBM2 #### [facility] [address] [place] [address] Protime-INRon 02-28-2024 INR Coag (PPP) [Relative time] 1.13 {INR} 0.85 - 1.13 [facility] Comment on above: ---------INDICATION- INR Reference Range DVT, PE, AF, AMI, tissue heart valve 2.0 to 3.0 Mechanical prosthetic valves 2.5 to 3.5 Performed at [facility] [employer] [facility] [address] [place] [address] RETICULOCYTE PANELon 024 ABS RETIC COUNT 47.0 thou/mm3 Normal 20.0-115.0 [facility] Comment on above: Performed By: #### M MMP, CRBM2, LPBM2 #### [facility] [address] [place] [address] IMM RETIC FRACTION 18.5 % High 2.3-13.4 [facility] Comment on above: Performed By: #### M MMP, CRBM2, LPBM2 #### [facility] [address] [facility] [place] [address] RETIC HEMOGLOBIN 29.0 pg Normal 28.2-35.7 [facility] Comment on above: Performed By: #### M MMP, CRBM2, LPBM2 #### [facility] [address] [facility] [place] [address] RETICULOCYTES 1.1 % Normal 0.5-2.0 [facility] Comment on above: Performed By: #### M MMP, CRBM2, LPBM2 #### [facility] [address] [facility] [place] [address] Reticulocyteson 02-28-2024 Hemoglobin Auto (Reticulocytes) [Entitic mass] 29.0 pg 28.2 - 35.7 pg [facility] Comment on above: Performed at [facility] [address] [place] [address] Immature reticulocytes/Total reticulocytes (Bld) 18.5 % High 2.3 - 13.4 % [facility] Interpretation and review of laboratory results Abnormal [facility] Reticulocytes (Bld) [#/Vol] 47.0 10*3/uL [facility] [employer] Reticulocytes/100 RBC (Bld) 1.1 % 0.5 - 2.0 % [facility] SARS-COV-2 & INFLUENZA A/[facility] 02-28-2024 INFLUENZA A, RT-PCR Not detected Normal NOT DETECTED [facility] Comment on above: Performed By: #### C VFLU #### [facility] [address] [place] [address] INFLUENZA B, RT-PCR Not detected Normal NOT DETECTED [facility] Comment on above: Performed By: #### C VFLU #### [facility] [address] [place] [address] SARS-CoV-2 (COVID-19) RNA MARIKA+probe Ql (Unsp spec) Not detected Normal NOT DETECTED [facility] Comment on above: Result Comment: [...] By: #### C VFLU #### [facility] [employer] [facility] [employer] [address] [place] [address] URIC ACIDon 02-28-2024 Urate [Mass/Vol] 7.6 mg/dL High 3.7-7.0 [facility] Comment on above: Performed By: #### M MMP, CRBM2, LPBM2 #### [facility] [address] [facility] [address] Uric Acidon 02-28-2024 Urate [Mass/Vol] 7.6 mg/dL High 3.7 - 7.0 mg/dL [facility] Comment on above: Performed at [facility] [employer] [facility] [address] [place] [address] VITAMIN B12 FOLATEon 024 Cobalamin (Vitamin B12) [Mass/Vol] 734 pg/mL Normal 211-911 [facility] Comment on above: Performed By: #### C DMITRY, SCAN1 #### [address] [address] FOLATE 4.1 ng/mL Low 4.8-24.2 [facility] Comment on above: Performed By: #### C DMITRY, SCAN1 #### [facility] [employer] [address] [address] Vitamin B12 & Folateon 02-27 Cobalamin (Vitamin B12) [Mass/Vol] 734 pg/mL 211 - 911 pg/mL [facility] Folate [Mass/Vol] 4.1 ng/mL Low 4.8 - 24.2 ng/mL [facility] Comment on above: Performed at [facility] [employer] [facility] [address] [place] [address] Interpretation and review of laboratory results Abnormal [facility] aPTT Coag (Bld) [Time]on aPTT Coag (PPP) [Time] 24.6 s [facility] Comment on above: Therapeutic Heparin Reference Range= 60-95 seconds (corresponds to 0.3 to 0.7 u/mL Anti-Xa factor activity) Performed at [facility] [address] [place] [address] 25-hydroxyvitamin D3 [Mass/V ol]on 02-27-2024 [facility] BLOOD SMEAR REVIEWon PATHOLOGIST REVIEWED Estefani FUNES [facility] Comment on above: Result Comment: No s chistocytes seen Performed By: #### C RP, WSR #### [facility] [address] [place] [address] SMEAR REVIEWED BY PATHOLOGIST see below Normal [facility] Comment on above: Result Comment: See Below Performed By: #### C RP, WSR #### [facility] [address] [place] [address] C-REACTIVE PROTEINon C-REACTIVE PROTEIN 6.83 mg/dl High 0.00-1.00 [facility] Comment on above: Performed By: #### C RP, WSR #### [facility] [address] [place] [address] C-Reactive Proteinon CRP [Mass/Vol] 6.83 mg/dl High 0.00 - 1.00 mg/dl [facility] Comment on above: Performed at [facility] [employer] [facility] [address] [place] [address] CALCIUM (IONIZED) * WBon CALCIUM (IONIZED) * WB 1.11 mmol/L Low 1.12-1.32 [facility] Comment on above: Performed By: #### C BCWD, SCAN1 #### [facility] [address] [place] [address] CREATININE (URINE)on Creatinine (U) [Mass/Vol] 37.4 mg/dL [facility] Comment on above: Performed By: #### C RP, WSR #### [facility] [address] [place] [address] CRP [Mass/Vol]on 02-27-2024 Interpretation and review of laboratory results Abnormal [facility] Calcium, Ionizedon 4 Calcium.ionized ISE (Bld) [Moles/Vol] 1.11 mmol/L Low 1.12 - 1.32 mmol/L [facility] Comment on above: Performed at [facility] [employer] [facility] [address] [place] [address] Calcium.ionized ISE (Bld) [M oles/Vol]on 02-27-2024 Interpretation and review of laboratory results Abnormal [facility] Creatinine, Random Urineon 1 Creatinine (U) [Mass/Vol] 37.4 mg/dL [facility] Comment on above: Performed at [facility] [employer] [facility] [address] [place] [address] DRUG ABUSE SCREENon 02-27-20 24 AMPHETAMINE/METHAMP H Negative Normal NEGATIVE [facility] Comment on above: Performed By: #### C RP, WSR #### [facility] [employer] [facility] [address] [place] [address] BARBITURATE Negative Normal NEGATIVE [facility] Comment on above: Performed By: #### C RP, WSR #### [facility] [address] [place] [address] Benzodiazepines Ql (U) Negative Normal NEGATIVE [facility] Comment on above: Performed By: #### C RP, WSR #### [employer] [facility] [address] [place] [address] Cannabinoids Screen Ql (U) Positive Normal NEGATIVE [facility] Comment on above: Performed By: #### C RP, WSR #### [facility] [address] [place] [address] COCAINE METABOLITE Negative Normal NEGATIVE [facility] Comment on above: Performed By: #### C RP, WSR #### [facility] [address] [place] [address] FENTANYL Negative Normal NEGATIVE [facility] Comment on above: Result Comment: [...] Performed By: #### C RP, WSR #### [facility] [address] [place] [address] Opiates Ql (U) Negative Normal NEGATIVE [facility] Comment on above: Performed By: #### C RP, WSR #### [facility] [address] [place] [address] OXYCODONE Negative Normal NEGATIVE [facility] Comment on above: Performed By: #### C RP, WSR #### [facility] [address] [place] [address] Phencyclidine Ql (U) Negative Normal NEGATIVE [facility] Comment on above: Performed By: #### C RP, WSR #### [facility] [address] [place] [address] EEG 24 houron 02-27-2024 Rm Davis MD 02/27/2024 11:51 AM LONG-TERM EEG-VIDEO MONITORING CLINICAL NEUROPHYSIOLOGY LABORATORY DEPARTMENT OF NEUROLOGY [facility] Patient: Ethan Donald Age: 33 y.o. [...] mL IntraVENous PRN Jenny Gunter APRN - INPATIENT AUDITOR 0.9 % sodium chloride infusion IntraVENous PRN Jenny Gunter APRN - INPATIENT AUDITOR potassium chloride (KLOR-CON M) extended release tablet [...] mg SubCUTAneous Daily Jenny Gunter APRN - INPATIENT AUDITOR 40 mg at 02/27/24 0814 ondansetron (ZOFRAN-ODT) disintegrating tablet 4 mg 4 mg Oral Q8H PRN Jenny Gunter APRN - CNP Or ondansetron (ZOFRAN) injection 4 mg 4 mg IntraVENous Q6H PRN Jenny Gunter APRN - INPATIENT AUDITOR 4 mg at 02/27/24 0815 polyethylene glycol (GLYCOLAX) packet 17 g 17 g Oral Daily PRN Jenny Gunter APRN - CNP acetaminophen (TYLENOL) tablet 650 mg 650 mg Oral Q6H PRN Jenny Gunter APRN - INPATIENT AUDITOR 650 mg at 02/27/24 0128 Or acetaminophen [...] revealed no abnormalities. RM DAVIS MD Diplomate, [place] [employer] Psychiatry and Neurology Diplomate, [place] Board of Clinical Neurophysiology Diplomate, [place] Board of Epilepsy Please note this is a preliminary report and updated daily. The final report will have a summary of behavior and electrographic findings with clinical correlation. [facility] EEG 24 hourOrdered By: Rm Davis on 02-27-2024 [facility] Work Phone: EKG Rhythm Stripon 4 PACEART [facility] PACEART [facility] PACEART [facility] PACEART [facility] HR [facility] Westergren method (Bld) [Velocity]on 02-27-2024 ESR (Bld) [Velocity] 9 mm/h [facility] Comment on above: Performed at [facility] [address] [place] [address] [facility] FIBRINOGENon 02-27-2024 FIBRINOGEN 402 mg/100ml Normal 155-475 [facility] Comment on above: Performed By: #### C BCWD, SCAN1 #### [facility] [address] [place] [address] Fibrinogenon 02-27-2024 Fibrinogen Coag (PPP) [Mass/Vol] 402 mg/dL [facility] Comment on above: Performed at [facility] [address] [place] [address] Fibrinogen Coag (PPP) [Mass/ Vol]on 02-27-2024 [facility] [employer] No Panel Informationon 02-26 [facility] [employer] OSMOLALITY URINEon 4 OSMOLALITY URINE see below Normal 250-750 [facility] Comment on above: Result Comment: Test was sent to an outside laboratory. Please refer to 'Reference' test. Performed By: #### C RP, WSR #### [facility] [employer] [address] [place] [address] Osmolality (U) [Osmolality]o n 02-27-2024 [facility] [employer] [facility] Osmolality, urineon 02-27-20 24 Osmolality (U) [Osmolality] see below [facility] [employer] Comment on above: Test was sent to an outside laboratory. Please refer to 'Reference' test. Performed at [facility] [address] [place] [address] PHOSPHORUSon 02-27-2024 Phosphate [Mass/Vol] 4.0 mg/dL Normal 2.4-4.7 [facility] Comment on above: Performed By: #### C BCWD, SCAN1 #### [facility] [employer] [address] [place] [address] POTASSIUM (URINE)on 02-27-20 24 POTASSIUM (URINE) 9.5 meq/l Normal [facility] Comment on above: Performed By: #### C RP, WSR #### [facility] [employer] [address] [place] [address] Path Review, Smearon 024 REVIEWED BY Estefani FUNES [facility] [employer] Comment on above: No schistocytes seen Performed at [facility] [address] [place] [address] Smear Review see below [employer] [facility] [employer] [facility] Comment on above: See Below [employer] Phosphate [Mass/Vol]on 02-26 [facility] [employer] Phosphoruson 02-27-2024 Phosphate [Mass/Vol] 4.0 mg/dL 2.4 - 4.7 mg/dL [facility] [employer] Comment on above: Performed at [facility] [address] [place] [address] Potassium, urine, randomon 1 Potassium (U) [Moles/Vol] 9.5 mmol/L [employer] Comment on above: Performed at [facility] [address] [place] [address] REFERENCE SPECIMENon 024 REFERENCE RANGE 50-1400 mOsm Normal [facility] TEST RESULT (WITH UNITS) 182 mOsm Normal [facility] ORIGINAL SAMPLE NUMBER [id number] Normal [facility] REFERENCE LOCATION see below Normal [facility] Comment on above: Result Comment: Perf ormed at [facility] [address] [place] [address] TEST(S) BEING PERFORMED URINE OSMO Normal [facility] Reference lab sampleon 02-26 ORIGINAL SAMPLE NUMBER [id number] [employer] REFERENCE LOCATION see below [employer] [facility] [employer] Comment on above: Performed at [facility] [address] [place] [address] Reference Range 50-1400 mOsm [employer] TEST RESULTS WITH UNITS 182 mOsm [employer] TEST(S) BEING PERFORMED URINE OSMO [employer] SED RATEon 02-27-2024 SED RATE 9 mm/hr Normal 0- [facility] Comment on above: Performed By: #### C RP, WSR #### [employer] [address] [place] [address] SODIUM (URINE)on 02-27-2024 Sodium (U) [Moles/Vol] mmol/L Normal [facility] Comment on above: Performed By: #### C RP, WSR #### [facility] [address] [place] [address] Sodium, urine, randomon 01-30 Sodium (U) [Moles/Vol] mmol/L meq/l [employer] Comment on above: Performed at [facility] [address] [place] [address] URINALYSIS W/ MICROon 2023 BACTERIA NONE SEEN Normal FEW/NONE SEEN [facility] Comment on above: Performed By: #### U AWM2 #### [employer] [facility] [place] [address] CASTS NONE SEEN Normal NONE SEEN [facility] Comment on above: Performed By: #### U AWM2 #### [facility] [address] [facility] [address] CASTS 2 NONE SEEN Normal [facility] Comment on above: Performed By: #### U AWM2 #### [facility] [address] [place] [address] Crystals LM Nom (Urine sed) NONE SEEN Normal NONE SEEN [facility] Comment on above: Performed By: #### U AWM2 #### [facility] [address] [place] [address] EPITHELIAL NONE SEEN Normal 3-5/hpf [facility] Comment on above: Performed By: #### U AWM2 #### [facility] [address] [place] [address] [place] [address] MISCELLANEOUS 2 NONE SEEN Normal [facility] Comment on above: Performed By: #### U AWM2 #### [facility] [address] [place] [address] [place] [address] RBC NONE SEEN Normal 0-2/hpf [facility] Comment on above: Performed By: #### U AWM2 #### [facility] [address] [place] [address] RENAL EPITHELIAL NONE SEEN Normal NONE SEEN [facility] Comment on above: Performed By: #### U AWM2 #### [facility] [address] [place] [address] [place] [address] WBC NONE SEEN Normal 0-4/hpf [facility] Comment on above: Performed By: #### U AWM2 #### [facility] [address] [place] [address] [place] [address] YEAST NONE SEEN Normal NONE SEEN [facility] Comment on above: Performed By: #### U AWM2 #### [facility] [address] [place] [address] Bilirubin Ql (U) Negative Normal NEGATIVE [facility] Comment on above: Performed By: #### U AWM2 #### [facility] [address] [place] [address] CHARACTER CLEAR Normal CLR-SL.CLOUD [facility] Comment on above: Performed By: #### U AWM2 #### [facility] [address] [place] [address] Color (U) YELLOW Normal YELLOW-STRAW [facility] Comment on above: Performed By: #### U AWM2 #### [facility] [address] [place] [address] Glucose Ql (U) Negative Normal NEGATIVE [facility] Comment on above: Performed By: #### U AWM2 #### [facility] [address] [place] [address] Hemoglobin Ql (U) Negative Normal NEGATIVE [facility] Comment on above: Performed By: #### U AWM2 #### [facility] [address] [place] [address] Ketones Ql (U) Negative Normal NEGATIVE [facility] Comment on above: Performed By: #### U AWM2 #### [address] [address] LEUKOCYTES Negative Normal NEGATIVE [facility] Comment on above: Performed By: #### U AWM2 #### [facility] [address] [place] [address] Nitrite Ql (U) Negative Normal NEGATIVE [facility] Comment on above: Performed By: #### U AWM2 #### [address] [address] pH (U) 6.5 [pH] Normal 5.0 - 9.0 [facility] Comment on above: Performed By: #### U AWM2 #### [address] [address] Protein Ql (U) Negative Normal NEGATIVE [facility] Comment on above: Performed By: #### U AWM2 #### [facility] [address] [place] [address] Specific gravity (U) [Rel density] 1.007 Normal 1.002-1.030 [facility] Comment on above: Performed By: #### U AWM2 #### [facility] [address] [place] [address] Urobilinogen Qn (U) 1.0 {Butch'U}/dL Normal 0.0 - 1. 0 [facility] Comment on above: Performed By: #### U AWM2 #### [facility] [address] [place] [address] Urinalysis dipstick W Reflex Microscopic panel (U)on 02-27-2024 Bacteria, UA NONE SEEN FEW/NONE SEEN [facility] Bilirubin Ql (U) Negative NEGATIVE [facility] Casts LM.LPF (Urine sed) [#/Area] NONE SEEN /lpf [facility] Character (U) CLEAR CLR-SL.CLOUD [facility] Charcoal LM Ql (Urine sed) NONE SEEN [facility] Comment on above: Performed at [facility] [address] [place] [address] Color (U) YELLOW YELLOW-STRAW [facility] Crystals LM Ql (Urine sed) NONE SEEN NONE SEEN [facility] Epithelial Cells, UA NONE SEEN 3-5/hpf /hpf [facility] Epithelial cells.renal LM.HPF (Urine sed) [#/Area] NONE SEEN NONE SEEN [facility] Fungi.yeastlike LM Ql (Urine sed) NONE SEEN NONE SEEN [facility] Glucose Auto test strip Ql (U) Negative NEGATIVE mg/dl [facility] Hemoglobin Auto test strip Ql (U) Negative NEGATIVE [facility] Ketones Auto test strip Ql (U) Negative NEGATIVE [facility] Leukocyte esterase Auto test strip Ql (U) Negative NEGATIVE [facility] Nitrite Auto test strip Ql (U) Negative NEGATIVE [facility] pH (U) 6.5 [pH] 5.0 - 9.0 [facility] Protein (U) [Mass/Vol] Negative NEGATIVE mg/dl [facility] RBC LM.HPF (Urine sed) [#/Area] NONE SEEN 0-2/hpf /hpf [facility] Specific [place], UA 1.007 1.002 - 1.030 [facility] Urobilinogen, Urine 1.0 [facility] WBC LM.HPF (Urine sed) [#/Area] NONE SEEN 0-4/hpf /hpf [facility] Urine Drug Screenon 02-27-20 24 [...] are for medical use only. Performed at [facility] [address] [place] [address] Opiates Screen Ql (U) Negative NEGATIVE [facility] Oxycodone Negative NEGATIVE [facility] Phencyclidine Ql (U) Negative NEGATIVE [facility] VITAMIN D TOTAL 25 (OH)on VITAMIN D TOTAL 25 (OH) 32 ng/ml Normal 30-100 [facility] Comment on above: Result Comment: Lashanda min D Status Range Deficiency <20 ng/ml Insuffiency 20-30 ng/ml Sufficiency 30-100 ng/ml Toxicity >100 ng/ml Performed By: #### C VFLU #### [facility] [address] [place] [address] Vitamin D 25 Hydroxyon 02-26 25-hydroxyvitamin D3 [Mass/Vol] 32 ng/mL 30 - 100 ng/ml [facility] Comment on above: Vitamin D Status Ran ge Deficiency <20 ng/ml Insuffiency 20-30 ng/ml Sufficiency 30-100 ng/ml Toxicity >100 ng/ml Performed at [facility] [address] [place] [address] Basic Metabolic Profon 10-28 -2024 Anion gap [Moles/Vol] 15 mmol/L Normal 9-16 [facility] Comment on above: Performed By: #### T MARY CHEN, BMP #### [facility] [address] [place] [address] Vat Cleaner: Ramo Jesus MD BUN/CRE Ratio 11 Normal 9-20 [facility] Comment on above: Performed By: #### T MARY CHEN, BMP #### [facility] [address] [place], [place] 5[address] [employer]at Cleaner: Ramo Jesus MD Calcium [Mass/Vol] 9.3 mg/dL Normal 8.6-10.4 [facility] Comment on above: Performed By: #### MARY RODAS, BMP #### [facility] [address] [place] [address] [address] [place], [place] 78[address] Vat Cleaner: Ramo Jesus MD Chloride [Moles/Vol] 97 mmol/L Low 98-107 [facility] Comment on above: Performed By: #### MARY RODAS, BMP #### [address] [place] [address] [employer] Cleaner: Ramo Jesus MD CO2 [Moles/Vol] 23 mmol/L Normal 20-31 [facility] Comment on above: Performed By: #### MARY RODAS, BMP #### [facility] [address] [place], [place] 8487383 Vat Cleaner: Ramo Jesus MD Creatinine [Mass/Vol] 1.2 mg/dL Normal 0.70-1.20 [facility] Comment on above: Performed By: #### MARY RODAS, BMP #### [facility] [address] [place] [address] [employer]at Cleaner: Ramo Jesus MD GFR/1.73 sq M.predicted among non-blacks MDRD (S/P/Bld) [Vol rate/Area] 80 mL/min/{1.73_m2} Normal >60 [facility] Comment on above: Result Comment: These [...] By: #### T MARY CHEN, BMP #### [facility] [address] [place] [address] [employer]at Cleaner: Ramo Jesus MD Glucose [Mass/Vol] 100 mg/dL High 74-99 [facility] Comment on above: Performed By: #### MARY RODAS, BMP #### [address] [place], [place] 0407183 [employer]er: Ramo Jesus MD Potassium [Moles/Vol] 3.3 mmol/L Low 3.7-5.3 [facility] Comment on above: Performed By: #### MARY RODAS, BMP #### [address] [place], [place] 1731883 [employer]er: Ramo Jesus MD Sodium [Moles/Vol] 135 mmol/L Low 136-145 [facility] Comment on above: Performed By: #### MARY RODAS, BMP #### [facility] [address] [place], [place] 6167183 [employer]er: Ramo Jesus MD Urea nitrogen [Mass/Vol] 13 mg/dL Normal 6-20 [facility] Comment on above: Performed By: #### MARY RODAS, BMP #### [facility] [address] [place] [address] Vat Cleaner: Ramo Jesus MD C-Reactive Proteinon 10-28-2 024 CRP [Mass/Vol] 81.9 mg/L High 0.0-5.0 [facility] Comment on above: Performed By: #### S ED, CRP #### [facility] [address] [place] [address] [employer]at Cleaner: Ramo Jesus MD CBC with Diffon 02-26-2024 Abs. Basophil 0.04 k/uL Normal 0.0-0.2 [facility] Comment on above: Performed By: #### T MARY CHEN, BMP #### [facility] [address] [place] [address] [employer]at Cleaner: Ramo Jesus MD Abs.Imm.Granulocyte 0.04 k/uL Normal 0.00-0.30 [facility] Comment on above: Performed By: #### MARY RODAS, BMP #### [address] [place] [address] Vat Cleaner: Ramo Jesus MD Abs.Neutrophil (Seg) 2.58 k/uL Normal 1.50-8.10 [facility] Comment on above: Performed By: #### MARY RODAS, BMP #### [address] [place] [address] [employer]er: Ramo Jesus MD Basophils/100 WBC (Bld) 1 % Normal 0-2 [facility] Comment on above: Performed By: #### MARY RODAS, BMP #### [address] [place] [address] [employer]er: Ramo Jesus MD Eosinophils (Bld) [#/Vol] 0.08 10*3/uL Normal 0.00-0.44 [facility] Comment on above: Performed By: #### T MARY CHEN, BMP #### [address] [place], [place] 3623983 [employer]er: Ramo Jesus MD Eosinophils/100 WBC (Bld) 2 % Normal 1-4 [facility] Comment on above: Performed By: #### T MARY CHEN, BMP #### [facility] [address] [place], [place] 336[address]83 [employer]at Cleaner: Ramo Jesus MD Immature granulocytes/100 WBC (Bld) 1 % High 0 [facility] Comment on above: Performed By: #### T MARY CHEN, BMP #### [facility] [address] [place], [place] [address] [employer]er: Ramo Jesus MD Lymphocytes (Bld) [#/Vol] 1.03 10*3/uL Low 1.10-3.70 [facility] Comment on above: Performed By: #### T MARY CHEN, BMP #### [address] [place], [facility]83 [employer]at Cleaner: Ramo Jesus MD Lymphocytes/100 WBC (Bld) 25 % Normal 24-43 [facility] Comment on above: Performed By: #### T MARY CHEN, BMP #### [address] [place], [facility] Vat Cleaner: Ramo Jesus MD Monocytes (Bld) [#/Vol] 0.33 10*3/uL Normal 0.10-1.20 [facility] Comment on above: Performed By: #### MARY RODAS, BMP #### [address] [place], [facility] [employer]at Cleaner: Ramo Jesus MD Monocytes/100 WBC (Bld) 8 % Normal 3-12 [facility] Comment on above: Performed By: #### T MARY CHEN, BMP #### [address] [place], [facility] Vat Cleaner: Ramo Jesus MD Morphology Gianni (Bld) [Interp] Normal Normal [facility] Comment on above: Performed By: #### T MARY CHEN, BMP #### [facility] [address] [place], [place] [phone] Vat Cleaner: Ramo Jesus MD Neutrophil (Seg) 63 % Normal 36-65 [facility] Comment on above: Performed By: #### T MARY CHEN, BMP #### [facility] [address] [place] [address] [employer]at Cleaner: Ramo Jesus MD Platelet, Fluoresc. 117 k/uL Low 138-453 [facility] Comment on above: Performed By: #### T MARY CHEN, BMP #### [facility] [address] [place] [address] Vat Cleaner: Ramo Jesus MD PLT, Immature Fract. 3.6 % Normal 1.1-10.3 [facility] Comment on above: Performed By: #### T MARY CHEN, BMP #### [address] [place], [place] 1636883 [employer]er: Ramo Jesus MD Erythrocyte distribution width (RBC) [Ratio] 12.0 % Normal 11.8-14.4 [facility] Comment on above: Performed By: #### T MARY CHEN, BMP #### [address] [place], [place] [address]49883 [employer]er: Ramo Jesus MD Hematocrit (Bld) [Volume fraction] 41.0 % Normal 40.7-50.3 [facility] Comment on above: Performed By: #### T MARY CHEN, BMP #### [address] [place], [place] [address] [employer]er: Ramo Jesus MD Hemoglobin (Bld) [Mass/Vol] 14.7 g/dL Normal 13.0-17.0 [facility] Comment on above: Performed By: #### T MARY CHEN, BMP #### [address] [place], [place] 2771683 [employer]at [employer]er: Ramo Jesus MD MCH (RBC) [Entitic mass] 31.1 pg Normal 25.2-33.5 [facility] Comment on above: Performed By: #### MARY RODAS, BMP #### [facility] [address] [place], [place] [address]83 Vat Cleaner: Ramo Jesus MD MCHC (RBC) [Mass/Vol] 35.9 g/dL High 28.4-34.8 [facility] Comment on above: Performed By: #### MARY RODAS, BMP #### [facility] [address] [place], [place] 3548083 Vat [employer]er: Ramo Jesus MD MCV (RBC) [Entitic vol] 86.9 fL Normal 82.6-102.9 [facility] Comment on above: Performed By: #### MARY RODAS, BMP #### [address] [place], [facility] Vat Cleaner: Ramo Jesus MD NRBC Automated 0.0 per 100 WBC Normal 0.0 [facility] Comment on above: Performed By: #### MARY RODAS, BMP #### [address] [place], [place] 4850683 Vat Cleaner: Ramo Jesus MD Platelet Count See Reflexed IPF Result Normal 138-453 [facility] Comment on above: Performed By: #### MARY RODAS, BMP #### [facility] [address] [place], [place] 2182383 Vat Cleaner: Ramo Jesus MD RBC (Bld) [#/Vol] 4.72 10*6/uL Normal 4.21-5.77 [facility] Comment on above: Performed By: #### MARY RODAS, BMP #### [facility] [address] [place] [address] Vat Cleaner: Ramo Jesus MD WBC (Bld) [#/Vol] 4.1 10*3/uL Normal 3.5-11.3 [facility] Comment on above: Performed By: #### T MARY CHEN, BMP #### [facility] [address] [place] [address] Vat Cleaner: Ramo Jesus MD CT HEAD WO CONTRASTon [...] Sam Rockwell DO 02/26/24 Final result Normal [facility] CTA HEAD NECK W CONTRASTon 1 [...] Sam Rockwell DO 02/26/24 Final result Normal [facility] Glucose, Whole Bloodon 02-25 Glucose [Mass/Vol] 105 mg/dL High 74-100 [facility] Liver Profileon 02-26-2024 Albumin [Mass/Vol] 4.1 g/dL Normal 3.5-5.2 [facility] Comment on above: Performed By: #### L IVP ####[address] [place] [address] Lab Director: Ramo Jesus MD Albumin/Glob Ratio 1.3 Normal 1.0-2.5 [facility] Comment on above: Performed By: #### L IVP ####[address] , [place] 9[address]83 Lab Director: Ramo Jesus MD Alkaline Phos 97 U/L Normal 40-129 [facility] Comment on above: Performed By: #### L IVP ####[address] , [place] 15[address]83 Lab Director: Ramo Jesus MD ALT [Catalytic activity/Vol] 45 U/L Normal 10-50 [facility] Comment on above: Performed By: #### L IVP ####[address] [place] [address] Lab Director: Ramo Jesus MD AST [Catalytic activity/Vol] 54 U/L High 10-50 [facility] Comment on above: Performed By: #### L IVP ####[address] , [place] [id number] Lab Director: Ramo Jesus MD Bilirubin [Mass/Vol] 1.1 mg/dL Normal 0.00-1.20 [facility] Comment on above: Performed By: #### L IVP ####[address] , [place] 69[address]83 Lab Director: Ramo Jesus MD Bilirubin, Indirect 0.6 mg/dL Normal 0.0-1.0 [facility] Comment on above: Performed By: #### L IVP ####[address] , [place] [id number] Lab Director: Ramo Jesus MD Bilirubin.indirect [Mass/Vol] 0.5 mg/dL High 0.00-0.30 [facility] Comment on above: Performed By: #### L IVP ####[address] , [place] 5300783 Lab Director: Ramo Jesus MD Protein [Mass/Vol] 7.2 g/dL Normal 6.6-8.7 [facility] Comment on above: Performed By: #### L IVP ####[address] [address] , [place] [id number] Lab Director: Ramo Jesus MD Prolactinon 02-26-2024 Prolactin 4.70 ng/mL Normal 4.04-15.2 [facility] Comment on above: Result Comment: The presence of macroprolactin may cause interference in female patients with various endocrinological diseases or during . Performed By: #### P ROL #### [facility] [address] [place] [address] Vat Cleaner: Ra Kilpatrick MD Sedimentation Rateon 024 Sedimentation Rate 17 mm/Hr High 0-15 [facility] Comment on above: Performed By: #### S ED, CRP #### [facility] [address] [place], [place] [id number] Vat Cleaner: Ramo Jesus MD Troponinon 02-26-2024 Troponin, High Sens 9 ng/L Normal 0-22 [facility] Comment on above: Result Comment: High Sensitivity Troponin values cannot be compared with other Troponin methodologies. Performed By: #### T ROPI, CDP, BMP #### [facility] [address] [place], [place] [id number] Vat Cleaner: Ramo Jesus MD UA w/Reflex Cultureon 2023 Bilirubin, SemiQt,Ur Negative Normal NEG [facility] Comment on above: Performed By: #### U AX, UMICAO #### [facility] [address] [place] [address] [address] [place], [place] [id number] Vat Cleaner: Ramo Jesus MD Blood, Urine Negative Normal NEG [facility] Comment on above: Performed By: #### U AX, UMICAO #### [facility] [address] [place], [place] [id number] Vat Cleaner: Ramo Jesus MD Clarity (U) Clear Normal CLEAR [facility] Comment on above: Performed By: #### U AX, UMICAO #### [facility] [address] [place] [address] [place] [address] Vat Cleaner: Ramo Jesus MD Color (U) Yellow Normal YEL [facility] Comment on above: Performed By: #### U AX, UMICAO #### [facility] [address] [place], [place] [id number] Vat Cleaner: Ramo Jesus MD Glucose Ql (U) Negative Normal NEG [facility] Comment on above: Performed By: #### U AX, UMICAO #### [facility] [address] [place], [place] [id number] Vat Cleaner: Ramo Jesus MD Ketones Ql (U) 2+ mg/dL Abnormal NEG [facility] Comment on above: Performed By: #### U AX, UMICAO #### [facility] [address] [place] [address] [place] [address] Vat Cleaner: Ramo Jesus MD Leukocyte esterase Test strip Ql (U) Negative Normal NEG [facility] Comment on above: Performed By: #### U AX, UMICAO #### [facility] [address] [place] [address] Dr. [place], [facility]83 Vat Cleaner: Ramo Jesus MD Nitrite,Ur Negative Normal NEG [facility] Comment on above: Performed By: #### U AX, UMICAO #### [facility] [address] [place] [address] Dr. [place], [facility]83 Vat Cleaner: Ramo Jesus MD PH,Ur 6.0 Normal 5.0-9.0 [facility] Comment on above: Performed By: #### U AX, UMICAO #### [facility] [address] [place] [address] [place] [address] Vat Cleaner: Ramo Jesus MD Protein Ql (U) Negative Normal NEG [facility] Comment on above: Performed By: #### U AX, UMICAO #### [facility] [address] [place] [address] [place] [address] Vat Cleaner: Ramo Jesus MD Spec. [place],Ur 1.010 Normal 1.010-1.020 [facility] Comment on above: Performed By: #### U AX, UMICAO #### [facility] [address] [place] [address] [address] [place], [place] [phone] Vat Cleaner: Ramo Jesus MD Urobilinogen,Ur Normal Normal 0.0-1.0 [facility] Comment on above: Performed By: #### U AX, UMICAO #### [facility] [address] [place], [place] [id number] Vat Cleaner: Ramo Jesus MD Urinalysis,Microon 4 Bacteria TRACE Abnormal NONE [facility] Comment on above: Performed By: #### U AX, UMICAO ####[address] , [place] [id number] Lab Director: Ramo Jesus MD Epithelial cells LM Ql (Urine sed) 0 TO 2 Normal 0-5 [facility] Comment on above: Performed By: #### U AX, UMICAO ####[address] [place] [address] Lab Director: Ramo Jesus MD Urine RBC's 0 TO 2 Normal 0-2 [facility] Comment on above: Performed By: #### U AX, UMICAO ####[address] [place] [address] Lab Director: Ramo Jesus MD Urine WBC's 0 TO 2 Normal 0-5 [facility] Comment on above: Performed By: #### U AX, UMICAO ####[address] , [place] [id number] Lab Director: Ramo Jesus MD XR CHEST PORTABLEon 02-26-20 XR CHEST PORTABLE EXAMINATION: ONE XRAY VIEW OF THE CHEST 02/26/2024 1:06 pm COMPARISON: None. 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 No pneumothorax. No acute focal airspace consolidation or pleural effusions. Cardiac and mediastinal contours within normal limits. No acute osseous abnormality. IMPRESSION: No acute focal airspace consolidation or effusions. Interpreted by: Rubio Suarez MD Signed by: Rubio Suarez MD 02/26/24 Final result Normal [facility] OPERATIVE REPORTon 3 OPERATIVE REPORT [address] [address] OPERATIVE REPORT PATIENT NAME: ETHAN DONALD : 1990 MED REC NO: [id number] ROOM: ACCOUNT NO: [id number] ADMIT DATE: 03/13/2023 PROVIDER: Jon Reynoso DATE OF PROCEDURE: 03/13/2023 PREOPERATIVE DIAGNOSES: 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 POSTOPERATIVE DIAGNOSES: 1. Subluxing patella. 2. Chondromalacia. 3. Roberta-Schlatter disease. PROCEDURES PERFORMED: Arthroscopy of right knee with: 1. Chondroplasty. 2. Lateral release. 3. Mini arthrotomy with excision of Roberta-Schlatter ossicle. SURGEON: Dr. Jon Reynoso. ANESTHESIA: General. [...] tendon was then split longitudinally and the Roberta--Schlatter ossicle was removed from the tendon. X-ray was obtained to verify that all the Roberta--Schlatter ossicle had been removed. The tendon was then oversewn with 2-0 Vicryl interrupted [id number]-ja-zujxk sutures. Skin margins were injected with 0.5% [...] in two weeks. JON REYNOSO [id number] Doc#: [id number] CC: Normal [facility] XR KNEE RIGHT (1-2 VIEWS)on 03-13-2023 [...] Alfonso Charles MD 03/13/23 Final result Normal [facility] GROUP A STREP CULTUREon 07-30 S. pyogenes Ag Ql (Unsp spec) Culture Observations: NEGATIVE FOR GROUP A STREPTOCOCCUS. Normal [facility] Comment on above: Performed By: #### S SCRN, GRASTCX #### [facility] [address] [place] [address] Dr. Pratibha [place] STREPT SCREENon 08-11-2022 STREP SCREEN A Negative Normal NEGATIVE [facility] Comment on above: Performed By: #### S SCRN, GRASTCX #### [facility] [address] [place] [address] Dr. Pratibha [place] AMYLASEon 07-23-2022 Amylase [Catalytic activity/Vol] 50 U/L Normal 25-115 [facility] Comment on above: Performed By: #### E RUR #### [facility] [address] [place] [address] Dr. Pratibha Stevenson CBC AUTO DIFFon 07-23-2022 BASO # 0.1 103/ul Normal 0.0-0.1 [facility] Comment on above: Performed By: #### L ACT #### [facility] [address] [place] [address] Dr. Pratibha Stevenson Basophils/100 WBC (Bld) 1.0 % Normal 0.2-2.0 [facility] Comment on above: Performed By: #### L ACT #### [facility] [address] [place] [address] Dr. Pratibha Stevenson EO # 0.1 103/ul Normal 0.0-0.7 [facility] Comment on above: Performed By: #### L ACT #### [facility] [address] [place] [address] Dr. Pratibha Stevenson Eosinophils/100 WBC (Bld) 1.7 % Normal 0.9-7.0 [facility] Comment on above: Performed By: #### L ACT #### [facility] [address] [place] [address] Dr. Pratibha Stevenson Erythrocyte distribution width (RBC) [Ratio] 12.1 % Normal 11.0-15.0 [facility] Comment on above: Performed By: #### L ACT #### [facility] [address] [place] [address] Dr. Pratibha Stevenson Hematocrit (Bld) [Volume fraction] 45.9 % Normal 42.0-54.0 [facility] Comment on above: Performed By: #### L ACT #### [facility] [address] [place] [address] Dr. Pratibha Stevenson Hemoglobin (Bld) [Mass/Vol] 15.6 g/dL Normal 14.0-18.0 [facility] Comment on above: Performed By: #### L ACT #### [facility] [address] [place] [address] Dr. Pratibha Stevenson IG # 0.01 10e3/ul Normal 0.00-0.03 [facility] Comment on above: Performed By: #### L ACT #### [facility] [address] [place] [address] Dr. Pratibha Stevenson IG % 0.1 % Normal 0.0-0.5 [facility] Comment on above: Performed By: #### L ACT #### [facility] [address] [place] [address] Dr. Pratibha Stevenson LYMPH # 2.0 103/ul Normal 1.2-3.8 [facility] Comment on above: Performed By: #### L ACT #### [facility] [address] [place] [address] Dr. Pratibha Stevenson Lymphocytes/100 WBC (Bld) 28.8 % Normal 20.5-60.0 [facility] Comment on above: Performed By: #### L ACT #### [facility] [address] [place] [address] Dr. Pratibha Stevenson MANUAL DIFF REQ NO Normal [facility] Comment on above: Performed By: #### L ACT #### [facility] [address] [place] [address] Dr. Pratibha Stevenson MCH (RBC) [Entitic mass] 31.3 pg Normal 25.9-34.0 [facility] Comment on above: Performed By: #### L ACT #### [facility] [address] [address] [address] Pratibha Stevenson MCHC (RBC) [Mass/Vol] 34.0 g/dL Normal 29.9-35.2 [facility] Comment on above: Performed By: #### L ACT #### [facility] [address] [address] [address] Pratibha Stevenson MCV (RBC) [Entitic vol] 92.2 fL Normal 80.0-94.0 [facility] Comment on above: Performed By: #### L ACT #### [facility] [address] [place] [address] Dr. Pratibha Stevenson MONO # 0.3 103/ul Normal 0.3-0.8 [facility] Comment on above: Performed By: #### L ACT #### [facility] [address] [address] [address] Pratibha Stevenson Monocytes/100 WBC (Bld) 4.3 % Normal 1.7-12.0 [facility] Comment on above: Performed By: #### L ACT #### [facility] [address] [address] [address] Pratibha Stevenson NEUT # 4.5 103/ul Normal 1.4-6.5 [facility] Comment on above: Performed By: #### L ACT #### [facility] [address] [address] [address] Pratibha Stevenson Neutrophils/100 WBC (Bld) 64.1 % Normal 43.0-75.0 [facility] Comment on above: Performed By: #### L ACT #### [facility] [address] [address] [address] Pratibha Stevenson Platelet mean volume (Bld) [Entitic vol] 10.3 fL Normal 9.5-13.5 [facility] Comment on above: Performed By: #### L ACT #### [facility] [address] [place], [place] [address] Dr. Pratibha Stevenson PLT 219 103/ul Normal 150-450 [facility] Comment on above: Performed By: #### L ACT #### [facility] [address] [place], [place] [address] Dr. Pratibha Stevenson RBC 4.98 106/ul Normal 4.70-6.10 [facility] Comment on above: Performed By: #### L ACT #### [facility] [address] [place], [place] [address] Dr. Pratibha Stevenson WBC 7.1 103/ul Normal 4.0-11.0 [facility] Comment on above: Performed By: #### L ACT #### [facility] [id number] Pratibha Stevenson CT ABD/PELV W CONon [...] YING WALTON Date: 2022-07-22 23:53 Normal [facility] DRUG SCREEN RAPID (URINE)on 07-23-2022 AMP Negative Normal NEGATIVE [facility] Comment on above: Performed By: #### E RUR #### [facility] [address] [place] [address] Dr. Pratibha Stevenson BAR Negative Normal NEGATIVE [facility] Comment on above: Performed By: #### E RUR #### [facility] [address] [address] [address] Pratibha Stevenson BUP Negative Normal NEGATIVE [facility] Comment on above: Performed By: #### E RUR #### [facility] [address] [place] [address] Dr. Pratibha Stevenson BZO Negative Normal NEGATIVE [facility] Comment on above: Performed By: #### E RUR #### [facility] [address] [place] [address] Dr. Pratibha Stevenson EMELY Negative Normal NEGATIVE [facility] Comment on above: Performed By: #### E RUR #### [facility] [address] [address] [address] Pratibha Stevenson CUT-OFFS SEE BELOW Normal [facility] Comment on above: Result Comment: AMP [...] ng/mL Performed By: #### E RUR #### [facility] [address] [place] [address] Dr. Pratibha Stevenson DRUG CUT HEADER DRUG CLASS TEST SYST EM CUT-OFF CONCENTRATIONS ARE FOLLOWS: Normal [facility] Comment on above: Performed By: #### E RUR #### [facility] [address] [place] [address] Dr. Pratibha Stevenson mAMP Negative Normal NEGATIVE [facility] Comment on above: Performed By: #### E RUR #### [facility] [address] [place] [address] Dr. Pratibha Stevenson MTD Negative Normal NEGATIVE [facility] Comment on above: Performed By: #### E RUR #### [facility] [address] [place] [address] Dr. Pratibha Stevenson OPI Positive Abnormal NEGATIVE [facility] Comment on above: Performed By: #### E RUR #### [facility] [address] [place] [address] Dr. Pratibha Stevenson OXY Negative Normal NEGATIVE [facility] Comment on above: Performed By: #### E RUR #### [facility] [address] [place] [address] Dr. Pratibha Stevenson PCP Negative Normal NEGATIVE [facility] Comment on above: Performed By: #### E RUR #### [facility] [address] [place] [address] Dr. Pratibha Stevenson PPX Negative Normal NEGATIVE [facility] Comment on above: Performed By: #### E RUR #### [facility] [address] [place] [address] Dr. Pratibha Stevenson TCA Positive Abnormal NEGATIVE [facility] Comment on above: Performed By: #### E RUR #### [facility] [address] [place] [address] Dr. Pratibha Stevenson THC Positive Abnormal NEGATIVE [facility] Comment on above: Performed By: #### E RUR #### [facility] [address] [place] [address] Dr. Pratibha Stevenson ER URINE PROFILEon 3 Bilirubin Ql (U) Negative Normal NEGATIVE [facility] Comment on above: Performed By: #### E RUR #### [facility] [address] [place] [address] Dr. Pratibha Stevenson Clarity (U) CLEAR Normal CLEAR [facility] Comment on above: Performed By: #### E RUR #### [facility] [address] [place] [address] Dr. Pratibha Stevenson Color (U) LT. YELLOW Normal YELLOW [facility] Comment on above: Performed By: #### E RUR #### [facility] [address] [place] [address] Dr. Pratibha Stevenson ERUAHD A micrscopic examination will be performed if indicated. Normal [facility] Comment on above: Performed By: #### E RUR #### [facility] [address] [place] [address] Dr. Pratibha Stevenson Glucose Ql (U) Negative Normal NEGATIVE [facility] Comment on above: Performed By: #### E RUR #### [facility] [address] [place] [address] Dr. Pratibha Stevenson Hemoglobin Ql (U) Negative Normal NEGATIVE [facility] Comment on above: Performed By: #### E RUR #### [facility] [address] [place] [address] Dr. Pratibha Stevenson Ketones Ql (U) Negative Normal NEGATIVE [facility] Comment on above: Performed By: #### E RUR #### [facility] [address] [place] [address] Dr. Pratibha Stevenson LEUKOCYTES Negative Normal NEGATIVE [facility] Comment on above: Performed By: #### E RUR #### [facility] [address] [place] [address] Dr. Pratibha Stevenson Nitrite Ql (U) Negative Normal NEGATIVE [facility] Comment on above: Performed By: #### E RUR #### [facility] [address] [place] [address] Dr. Pratibha Stevenson pH (U) 5.5 [pH] Normal 5-9 [facility] Comment on above: Performed By: #### E RUR #### [facility] [address] [place] [address] Dr. Pratibha Stevenson SPEC GRAVITY <=1.005 Abnormal 1.005-<=1.025 [facility] Comment on above: Performed By: #### E RUR #### [facility] [address] [place] [address] Dr. Pratibha Stevenson UA PROTEIN Negative Normal NEGATIVE/ TRACE [facility] Comment on above: Performed By: #### E RUR #### [facility] [address] [place] [address] Dr. Pratibha Stevenson UR MICRO IND NOT INDICATED Normal [facility] Comment on above: Performed By: #### E RUR #### [facility] [address] [place] [address] Dr. Pratibha Stevenson Urobilinogen Qn (U) 0.2 {Butch'U}/dL Normal 0.2 - 1. 0 [facility] Comment on above: Performed By: #### E RUR #### [facility] [address] [place] [address] Dr. Pratibha Stevenson LIPASEon 07-23-2022 Lipase [Catalytic activity/Vol] 126.0 U/L Normal 73.0-393.0 [facility] Comment on above: Performed By: #### E RUR #### [facility] [address] [place] [address] Dr. Pratibha Stevenson PROF 14(COMP METB)on 023 Albumin [Mass/Vol] 4.2 g/dL Normal 3.4-5.0 [facility] Comment on above: Performed By: #### E RUR #### [facility] [address] [place] [address] Dr. Pratibha Stevenson Albumin/Globulin [Mass ratio] 1.4 {ratio} Normal [facility] Comment on above: Performed By: #### E RUR #### [facility] [address] [place] [address] Dr. Pratibha Stevenson ALP [Catalytic activity/Vol] 87 U/L Normal 46-116 [facility] Comment on above: Performed By: #### E RUR #### [facility] [address] [place] [address] Dr. Pratibha Stevenson ALT [Catalytic activity/Vol] 20 U/L Normal 16-63 [facility] Comment on above: Performed By: #### E RUR #### [facility] [address] [address] [address] Pratibha Stevenson Anion gap [Moles/Vol] 12.8 mmol/L Normal [facility] Comment on above: Performed By: #### E RUR #### [facility] [address] [address] [address] Pratibha Stevenson AST [Catalytic activity/Vol] 18 U/L Normal 15-37 [facility] Comment on above: Performed By: #### E RUR #### [facility] [address] [address] [address] Pratibha Stevenson Bilirubin [Mass/Vol] 0.5 mg/dL Normal 0.2-1.0 [facility] Comment on above: Performed By: #### E RUR #### [facility] [address] [place] [address] Dr. Pratibha Stevenson Calcium [Mass/Vol] 9.2 mg/dL Normal 8.5-10.1 [facility] Comment on above: Performed By: #### E RUR #### [facility] [address] [address] [address] Pratibha Stevenson Chloride [Moles/Vol] 101 mmol/L Normal 98-107 [facility] Comment on above: Performed By: #### E RUR #### [facility] [address] [address] [address] Pratibha Stevenson CO2 [Moles/Vol] 24.7 mmol/L Normal 21.0-32.0 [facility] Comment on above: Performed By: #### E RUR #### [facility] [address] [address] [address] Pratibha Stevenson Creatinine [Mass/Vol] 1.20 mg/dL Normal 0.70-1.30 [facility] Comment on above: Performed By: #### E RUR #### [facility] [address] [address] [address] Pratibha Stevenson EGFR-AF CITIZEN OF [place] >60 Normal >=60 [facility] Comment on above: Performed By: #### E RUR #### [facility] [address] [address] [address] Pratibha Stevenson EGFR-NON AF CITIZEN OF [place] >60 Normal >=60 [facility] Comment on above: Performed By: #### E RUR #### [facility] [address] [address] [address] Pratibha Stevenson Globulin (S) [Mass/Vol] 3.1 g/dL Normal [facility] Comment on above: Performed By: #### E RUR #### [facility] [address] [address] [address] Pratibha Stevenson Glucose [Mass/Vol] 128 mg/dL Critically high 74-106 [facility] Comment on above: Performed By: #### E RUR #### [facility] [address] [address] [address] Pratibha Stevenson Potassium [Moles/Vol] 3.5 mmol/L Normal 3.5-5.1 [facility] Comment on above: Performed By: #### E RUR #### [facility] [address] [address] [address] Pratibha Stevenson Protein [Mass/Vol] 7.3 g/dL Normal 6.4-8.2 [facility] Comment on above: Performed By: #### E RUR #### [facility] [address] [address] [address] Pratibha Stevenson Sodium [Moles/Vol] 135 mmol/L Critically low 136-145 [facility] Comment on above: Performed By: #### E RUR #### [facility] [address] [address] [address] Pratibha Stevenson Urea nitrogen [Mass/Vol] 10.0 mg/dL Normal 7.0-18.0 [facility] Comment on above: Performed By: #### E RUR #### [facility] [address] [address] [address] Pratibha Stevenson Urea nitrogen/Creatinine [Mass ratio] 8.3 mg/mg Normal [facility] Comment on above: Performed By: #### E RUR #### [facility] [address] [address] [address] Pratibha Stevenson Screenson 07-22-2022 Screens [id number]. 00CD:[address] [facility] Screens [id number]. 00CD:[address] [facility] Patient Educationon 07-22-19 Patient Education Urology [...] Rhubarb. ? Beets. ? Potato chips and serbian fries. ? Nuts. ? If you regularly take a diuretic medicine, make sure to eat at least 1?2 fruits or vegetables high in potassium each day. These include: ? Avocado. ? Banana. ? [place], prune, carrot, or tomato juice. ? Baked [...] dr (more content not included)... Normal [facility] Urology Office/Clinic Noteon 07-21-2022 Urology Office/Clinic Note Chief Complaint pt here for a hospital f/u for kidney stones HPI Staff Pt is a 31 yr old Male here today for a hospital f/u from [facility] for a kidney stone. CT scan done 07/20/22 shows Bilateral nonobstructive renal calculi. No hydronephrosis or hydroureter hepatomegaly. Pts previous DX: kidney stone, ureteral stone. IPSS 26. Pt states he started feeling pain on Monday in the right upper back area and presented to the ER on Monday. Pt had CT scans done at [facility]. Pt states the pain is [...] of urinary calculi) Urology consult 05/08/22 at [facility] due to 4-5 mm Ureteral Stone [...] 09:39:58. . Documentation recorded by the scribe, Shailni Macias, accurately reflects the services(s) I performed and decisions made by me. Authenticated by Dr. Murrell on 07/21/2022 16:55:05. Problem List/Past Medical History Ongoing Arthritis Herpes simplex History of kidney stones Kidney stones Multiple personality disorder Ureteral stone Historical No qualifying data Procedure/Surgical History Cystoscopic removal of ureteric stent (05/23/2022), Cystoscopic laser lithotripsy of ureteric calculus (05/08/2022) (more content not included)... Normal [facility] Comment on above: Result Comment: Elec tronically Signed By: Shirley Murrell MD\.br\Date and Time Signed: 07/21/22 16:55 EDT\.br\Electronically Co-Signed By: Shalini Macias\.br\Date and Time Co-Signed: 07/21/22 09:40 EDT CBC AUTO DIFFon 07-20-2022 BASO # 0.1 103/ul Normal 0.0-0.1 [facility] Comment on above: Performed By: #### C BC #### [facility] [address] [place] [address] Dr. Pratibha Stevenson Basophils/100 WBC (Bld) 0.7 % Normal 0.2-2.0 [facility] Comment on above: Performed By: #### C BC #### [facility] [address] [place] [address] Dr. Pratibha Stevenson EO # 0.2 103/ul Normal 0.0-0.7 [facility] Comment on above: Performed By: #### C BC #### [facility] [address] [place] [address] Dr. Pratibha Stevenson Eosinophils/100 WBC (Bld) 2.4 % Normal 0.9-7.0 [facility] Comment on above: Performed By: #### C BC #### [facility] [address] [place] [address] Dr. Pratibha Stevenson Erythrocyte distribution width (RBC) [Ratio] 12.4 % Normal 11.0-15.0 [facility] Comment on above: Performed By: #### C BC #### [facility] [address] [place] [address] Dr. Pratibha Stevenson Hematocrit (Bld) [Volume fraction] 45.8 % Normal 42.0-54.0 [facility] Comment on above: Performed By: #### C BC #### [facility] [address] [place] [address] Dr. Pratibha Stevenson Hemoglobin (Bld) [Mass/Vol] 15.6 g/dL Normal 14.0-18.0 [facility] Comment on above: Performed By: #### C BC #### [facility] [address] [place] [address] Dr. Pratibha Stevenson IG # 0.03 10e3/ul Normal 0.00-0.03 [facility] Comment on above: Performed By: #### C BC #### [facility] [address] [place] [address] Dr. Pratibha Stevenson IG % 0.4 % Normal 0.0-0.5 [facility] Comment on above: Performed By: #### C BC #### [facility] [address] [place] [address] Dr. Pratibha Stevenson LYMPH # 3.0 103/ul Normal 1.2-3.8 [facility] Comment on above: Performed By: #### C BC #### [facility] [address] [place] [address] Dr. Pratibha Stevenson Lymphocytes/100 WBC (Bld) 34.7 % Normal 20.5-60.0 [facility] Comment on above: Performed By: #### C BC #### [facility] [address] [place] [address] Dr. Pratibha Stevenson MANUAL DIFF REQ NO Normal [facility] Comment on above: Performed By: #### C BC #### [facility] [address] [place] [address] Dr. Pratibha Stevenson MCH (RBC) [Entitic mass] 31.3 pg Normal 25.9-34.0 [facility] Comment on above: Performed By: #### C BC #### [facility] [address] [place] [address] Dr. Pratibha Stevenson MCHC (RBC) [Mass/Vol] 34.1 g/dL Normal 29.9-35.2 [facility] Comment on above: Performed By: #### C BC #### [facility] [address] [place] [address] Dr. Pratibha Stevenson MCV (RBC) [Entitic vol] 92.0 fL Normal 80.0-94.0 [facility] Comment on above: Performed By: #### C BC #### [facility] [address] [place] [address] Dr. Pratibha Stevenson MONO # 0.5 103/ul Normal 0.3-0.8 [facility] Comment on above: Performed By: #### C BC #### [facility] [address] [place] [address] Dr. Pratibha Stevenson Monocytes/100 WBC (Bld) 5.9 % Normal 1.7-12.0 [facility] Comment on above: Performed By: #### C BC #### [facility] [address] [place] [address] Dr. Pratibha Stevenson NEUT # 4.8 103/ul Normal 1.4-6.5 [facility] Comment on above: Performed By: #### C BC #### [facility] [address] [place] [address] Dr. Pratibha Stevenson Neutrophils/100 WBC (Bld) 55.9 % Normal 43.0-75.0 [facility] Comment on above: Performed By: #### C BC #### [facility] [address] [place] [address] Dr. Pratibha Stevenson Platelet mean volume (Bld) [Entitic vol] 10.0 fL Normal 9.5-13.5 [facility] Comment on above: Performed By: #### C BC #### [facility] [address] [place] [address] Dr. Pratibha Stevenson PLT 243 103/ul Normal 150-450 [facility] Comment on above: Performed By: #### C BC #### [facility] [address] [place] [address] Dr. Pratibha Stevenson RBC 4.98 106/ul Normal 4.70-6.10 [facility] Comment on above: Performed By: #### C BC #### [facility] [address] [place] [address] Dr. Pratibha Stevenson WBC 8.5 103/ul Normal 4.0-11.0 [facility] Comment on above: Performed By: #### C BC #### [facility] [address] [place] [address] ABD/PELVIS WO CONon [...] ROSALINO VIDALES Date: 2022-07-20 04:12 Normal [facility] ER URINE PROFILEon 3 Bilirubin Ql (U) Negative Normal NEGATIVE [facility] Comment on above: Performed By: #### L ACT #### [facility] [address] [place] [address] Dr. Pratibha Stevenson Clarity (U) CLEAR Normal CLEAR [facility] Comment on above: Performed By: #### L ACT #### [facility] [address] [place] [address] Dr. Pratibha Stevenson Color (U) LT. YELLOW Normal YELLOW [facility] Comment on above: Performed By: #### L ACT #### [facility] [address] [place] [address] Dr. Pratibha Stevenson ERUAHRanjan A micrscopic examination will be performed if indicated. Normal [facility] Comment on above: Performed By: #### L ACT #### [facility] [address] [place] [address] Dr. Pratibha Stevenson Glucose Ql (U) Negative Normal NEGATIVE [facility] Comment on above: Performed By: #### L ACT #### [facility] [address] [place] [address] Dr. Pratibha Stevenson Hemoglobin Ql (U) Negative Normal NEGATIVE [facility] Comment on above: Performed By: #### L ACT #### [facility] [address] [place] [address] Dr. Pratibha Stevenson Ketones Ql (U) Negative Normal NEGATIVE [facility] Comment on above: Performed By: #### L ACT #### [facility] [address] [place] [address] Dr. Pratibha Stevenson LEUKOCYTES Negative Normal NEGATIVE [facility] Comment on above: Performed By: #### L ACT #### [facility] [address] [place] [address] Dr. Pratibha Stevenson Nitrite Ql (U) Negative Normal NEGATIVE [facility] Comment on above: Performed By: #### L ACT #### [facility] [address] [place] [address] Dr. Pratibha Stevenson pH (U) 6.0 [pH] Normal 5-9 [facility] Comment on above: Performed By: #### L ACT #### [facility] [address] [place] [address] Dr. Pratibha Stevenson SPEC GRAVITY <=1.005 Abnormal 1.005-<=1.025 [facility] Comment on above: Performed By: #### L ACT #### [facility] [address] [place] [address] Dr. Pratibha Stevenson UA PROTEIN Negative Normal NEGATIVE/ TRACE [facility] Comment on above: Performed By: #### L ACT #### [facility] [address] [place] [address] Dr. Pratibha Stevenson UR MICRO IND NOT INDICATED Normal [facility] Comment on above: Performed By: #### L ACT #### [facility] [address] [place] [address] Dr. Pratibha Stevenson Urobilinogen Qn (U) 0.2 {Butch'U}/dL Normal 0.2 - 1. 0 [facility] Comment on above: Performed By: #### L ACT #### [facility] [address] [place] [address] Dr. Pratibha Stevenson LACTATE/LACTIC ACIDon 2022 Lactate [Moles/Vol] 0.8 mmol/L Normal 0.4-2.0 [facility] Comment on above: Performed By: #### L ACT #### [facility] [address] [place] [address] Dr. Pratibha Stevenson PROF 14(COMP METB)on 023 Albumin [Mass/Vol] 4.3 g/dL Normal 3.4-5.0 [facility] Comment on above: Performed By: #### E RUR #### [facility] [address] [place] [address] Dr. Pratibha Stevenson Albumin/Globulin [Mass ratio] 1.3 {ratio} Normal [facility] Comment on above: Performed By: #### E RUR #### [facility] [address] [place] [address] Dr. Pratibha Stevenson ALP [Catalytic activity/Vol] 94 U/L Normal 46-116 [facility] Comment on above: Performed By: #### E RUR #### [facility] [address] [place] [address] Dr. Pratibha Stevenson ALT [Catalytic activity/Vol] 23 U/L Normal 16-63 [facility] Comment on above: Performed By: #### E RUR #### [facility] [address] [place] [address] Dr. Pratibha Stevenson Anion gap [Moles/Vol] 10.5 mmol/L Normal [facility] Comment on above: Performed By: #### E RUR #### [facility] [address] [place] [address] Dr. Pratibha Stevenson AST [Catalytic activity/Vol] 21 U/L Normal 15-37 [facility] Comment on above: Performed By: #### E RUR #### [facility] [address] [place] [address] Dr. Pratibha Stevenson Bilirubin [Mass/Vol] 0.5 mg/dL Normal 0.2-1.0 [facility] Comment on above: Performed By: #### E RUR #### [facility] [address] [place] [address] Dr. Pratibha Stevenson Calcium [Mass/Vol] 9.3 mg/dL Normal 8.5-10.1 [facility] Comment on above: Performed By: #### E RUR #### [facility] [address] [place] [address] Dr. Pratibha Stevenson Chloride [Moles/Vol] 102 mmol/L Normal 98-107 [facility] Comment on above: Performed By: #### E RUR #### [facility] [address] [place] [address] Dr. Pratibha Stevenson CO2 [Moles/Vol] 26.2 mmol/L Normal 21.0-32.0 [facility] Comment on above: Performed By: #### E RUR #### [facility] [address] [place] [address] Dr. Pratibha Stevenson Creatinine [Mass/Vol] 1.18 mg/dL Normal 0.70-1.30 [facility] Comment on above: Performed By: #### E RUR #### [facility] [address] [place] [address] Dr. Pratibha Stevenson EGFR-AF [place]IZ[place] >60 Normal >=60 [facility] Comment on above: Performed By: #### E RUR #### [facility] [address] [place] [address] Dr. Pratibha Stevenson EGFR-NON AF CITIZEN OF [place] >60 Normal >=60 [facility] Comment on above: Performed By: #### E RUR #### [facility] [address] [place] [address] Dr. Pratibha Stevenson Globulin (S) [Mass/Vol] 3.2 g/dL Normal [facility] Comment on above: Performed By: #### E RUR #### [facility] [address] [place] [address] Dr. Pratibha Stevenson Glucose [Mass/Vol] 115 mg/dL Critically high 74-106 [facility] Comment on above: Performed By: #### E RUR #### [facility] [address] [place] [address] Dr. Pratibha Stevenson Potassium [Moles/Vol] 3.7 mmol/L Normal 3.5-5.1 [facility] Comment on above: Performed By: #### E RUR #### [facility] [address] [place] [address] Dr. Pratibha Stevenson Protein [Mass/Vol] 7.5 g/dL Normal 6.4-8.2 [facility] Comment on above: Performed By: #### E RUR #### [facility] [address] [place] [address] Dr. Pratibha Stevenson Sodium [Moles/Vol] 135 mmol/L Critically low 136-145 [facility] Comment on above: Performed By: #### E RUR #### [facility] [address] [place] [address] Dr. Pratibha Stevenson Urea nitrogen [Mass/Vol] 11.0 mg/dL Normal 7.0-18.0 [facility] Comment on above: Performed By: #### E RUR #### [facility] [address] [place] [address] Dr. Pratibha Stevenson Urea nitrogen/Creatinine [Mass ratio] 9.3 mg/mg Normal [facility] Comment on above: Performed By: #### E RUR #### [facility] [address] [place] [address] Dr. Pratibha Stevenson TROPONIN, HIGH SENSITIVITYon 07-20-2022 HSTROP 5.0 pg/mL Normal 4.0-76.1 [facility] Comment on above: Result Comment: CUT- OFF POINTS HAVE BEEN ESTABLISHED BASED ON THE FOURTH UNIVERSAL DEFINITIONS OF MYOCARDIAL INFARCTION. THE UPPER REFERENCE LIMIT (URL) OF TROPONIN, DEFINED THE 99TH PERCENTILE OF cTnI DISTRIBUTION IN A REFERENCE POPULATION, HAS BEEN CONFIRMED THE DECISION THRESHOLD FOR [place] DIAGNOSIS. Performed By: #### E RUR #### [facility] [address] [place] [address] Dr. Pratibha Stevenson Formson 07-15-2022 Forms [id number]#1.0 0CD:[address] [facility] Screenson 07-15-2022 Screens [id number]#1.0 0CD:[address] [facility] Screens [id number]#1.0 0CD:[address] [facility] Patient Educationon 07-14-19 Patient Education Urology [...] Rhubarb. ? Beets. ? Potato chips and serbian fries. ? Nuts. ? If you regularly take a diuretic medicine, make sure to eat at least 1?2 fruits or vegetables high in potassium each day. These include: ? Avocado. ? Banana. ? [place], prune, carrot, or tomato juice. ? Baked [...] dr (more content not included)... Normal [facility] Urology Office/Clinic Noteon 07-13-2022 Urology Office/Clinic Note Chief Complaint Pt is here for PO stent removal HPI Staff Ethan is a 31 y.o. male new patient here for [facility] ER follow up. Urology consult done 05/08/22 @ [facility] due to 4-5mm Ureteral Stone. S/P Lt [...] yo male new patient following up to [facility] ER. IPSS 13. MARGOTH 14. 1. Ureteral stone (N20.1: Calculus of ureter) Urology consult 05/08/22 at [facility] due to 4-5 mm Ureteral Stone [...] 12/26/1997 Recor (more content not included)... Normal [facility] Comment on above: Result Comment: Elec tronically Signed By: Handy WILEY, Shirley Menchaca\.br\Date and Time Signed: 07/13/22 16:53 EDT\.br\Electronically Co-Signed By: Shalini Macias\.br\Date and Time Co-Signed: 07/13/22 10:29 EDT RAD - MISCon 07-11-2022 RAD - MISC [id number]#1.0 0CD:[address] [facility] RAD - Ultrasound Reporton RAD - Ultrasound Report [id number]#1.0 0CD:[address] [facility] US KIDNEYSon 07-06-2022 US KIDNEYS EXAMINATION: [...] by: RAMO BLAKE Date: 2022-07-06 11:14 Normal [facility] XR KUB 1 VIEWon 07-06-2022 [...] by: SAUMYA MARSH Date: 2022-07-06 11:57 Normal [facility] Coding Summary.on 05-30-2022 Coding Summary. CD:[id number] Gh 0bWw+PGhlYWQ+RE2KIIBpL 92usTLksN5PP7kHFJ8BPLE ABOOQHD9LGI6ihNN4BCzbP 2VybiAv PmifiTJnDZ95BXf9OVY6dW kgNGzcsT8slXWwA7u1ErWz JY59hZ01APvyLWXrAuN6Qs ZpbjsgbWFy H8peUrZkqKSiCcx+PHRhYm xlIHdpZHRoPScxMDAlJyBz tCcsHF1zXi5qTWPaYDXacW xhcHNlOiBj p5lcYZRaKQwmVS4gdZczI7 HilIR2RZOju4b8Sa69eCO+ RXAaNDI6kXwpBDqxk387Cq Sod3iyCQH4 rFXiGTvtHMC0Q42ql7Z1CZ UmLMKsJUC3aZX6aO8ycZme pybrZ1MxsGYgMlF4FNA4oP RbsI2gaKjp awaalZ6oMsk+D66QRJ9EZO TBXP2CQao8Z1ZxUfmftWB+ QY86UGGdZM41pYDcmRTpl3 tszMn2JoMk GMMiTYJ1mGyvQLjmt8RtRQ RcL57cdMEyg0F9CMGfeUvv fIKzJwXurUZ7lQ9nTMkpii mtg9yarwzq Nnriy8hler99dG31S08sBA moLRGuQNH0TAGvTZCglGry qd3tlR1tVe4+ICdnv6ttd9 maqYy7ShBp UYJfhqQedHdaNDS6i5GaAn 95M4AvfMsxk2UjFkb5fm26 iJBcw0Z0oFG8SNehOBXibV 8kNZgbYgV1 DQKcQeKpoT80nVSwYRfgJe 5akRsseOdaDK2mSEQkehvm LBRuuH6bILZmiRPcjVobYK 4wNTBpbjtm b624DqSbRUM1YJQmiVWqX9 KouM5aJuNuTQBtYKVhA3Vp aWCzVSwnW424ODajRcA1ZI CdodScS0Zj DXHbbDypSrY5j7Z1Wo8Al5 RaagbfTWC8WIxfMPSeErEo OjZxUnG1E0GyZqa3AVVotV hqLN4pX7Gf IGFccbcvrzgcmQD0JHFlEA CceM80rCUgMDdkZq7ml3P3 f916UGNoJLSqyY78Sm0hhN ogMTBwdCBU qT4vyznpc8tivkkwRvWbFB QpJVm3OIn2CJEafTsuDuAg MXO4ToG7CAU1aKHjeB8crL hgywfvrE7s Oyc+M92rdU2jFTT4LGK3mg plCBBgiiTqVW72MO75P4Lr PjwvdGFibGU+PGRpdiBzdH ukFC9uQyPi i2dot8IdQQycY7HjPQZoZU inUkr3ACPrTUK2bON6dY6d FIIkYIvxu0S5pGL9H0Yzep Ljfv8kn5ez TMWqFTuoP56kcGVru7C5XR ScuWJ9RDItgJvgYnSjfE37 Oyc+OHGavCvcg0QfOjgtv3 vyp0xbaUr0 BpZkHWRxuhWzwSzjDKE8q5 CfHb05C31sZGbtXYNqCQFv WBHpOUIixEzjta8vqD8kEr 8+PGNvbCB3 uMT5bZ4kIVIwMxF2XLusJ8 37LxTwkJXcZuzml7chm7bq gNh1PvUnMRKohsAszBslRO T4t4BbMj67 Z48vOCqbDRQhZAOeICTkXA BgaYmxty3ziY6bWk3+PC9j i0phvh47aU70oAG+PHRkIH L0vTgrQQwl ROSufM8oBZnoIiM2JHKbRn ItjX94iRNgKMmtMs1bjWak iUhgVV5yOXRorbwsl029By Ikr6vbTDXf aGOdASaaJIQ8R72yn8J1RH MbBBZrWKS9kUC9fK1zkVkl bjogbGVmdDsgdmVydGljYW agOPepM362 IHRvcDsnPlBhdGllbnQgTm EtZUi8X7XrAxq7VKAvyIpg ZJ8bpUNcWJbxIb6xiHxfsD twNT3zLDAw pbuvo529SkEcf0llFWQphL SnBIltBEY1H07sq0G3PSQu BAKxMBN0eTN9xI7lkMoekn ogbGVmdDsg qsGvmYbwNBtgNCuwP314NW RvcDsnPkJpcnRoIERhdGU6 IA76PY31yRMmx5W3mTL1L3 BhZGRpbmct cdzujHV3XTIkNOTgoJ56Ad 3hqQfqBt1oUUDsRIP1CRSe sTOqX1RhgD9oQuWlRBGsYE TuN6DhnQNv QFsjY731IVgyWkO3MFHodt DfU1MeDUXozXnaBcK9r8O0 Hl8DC1Z7HT51QM90qDUgr1 Q5eXV5L2Cl JZQilpltpxhpnMI8HOPlVD JtpH28Fv3utKvkUh7nFWPe AYX2MDYqbEBgV4GcdJ8vZu AjMDAwMDAw U5HtoMHrRZxxV647ZIpcCq W8YFPogoTlF8TkJSZavIsi ReK0u1C2Je6MZBr6IZ11DA 35cFJxy7M3 zCU9K2WrQNYpwxvszkaufW R7YEEtZKCjxL66Ux4jfQcu Qn0lPLHmOIO7HTPvyGJmV0 VtzE5tJgBp XYNdBBMeZ8SzxILyJFupQ2 09VBevQyQ6BEEwmjIdQ1Vq GJYzxTaoNcY8j6M8Xp4FAH AbSD28GTR7 mTW3QW03DG20E6GaYtkquF FibGU+PHRhYmxlIHdpZHRo WUflFFLcPhTstTgxQK3gGy 9yZGVyLWNv iKfulXWzSeQhc6qlKJPrGE oaGE8ahNpxH5EjvBA5SNJi o8k0Dm76B05qG3DuxSY+PG AdmJI7xEX3 iR7qUiXdKzE2HKwoQ551Ll CzyJYnOrjbe4cbb7acvHo8 DoF6VQKfkjVhhQvwJKE3x6 LgSf51R29u IHdpZHRoPSIxNSUiIHZhbG rnpy5xoV2rVe7+PGNvbCB3 rNE7eQ1tYbDcZfO6JWpiN5 49InRvcCIv Jokai5jkd5ljfEq8TiIaXB CnybIlfTbaVYW7h7ApPs07 Q4HkdQpop4FeVbs4zk34kD Nzp4M6oWS7 Y1FyRJMovsrduWPyaEirOP 5hVUFethygAHJzxY9uAFYw U4v2BiVaDiN1NDinW4Ydox Y9SEThiXYh GFzyAVJ6K40nx5K6WNNzBP BhLER1sXI9cE6fiUblgtbv bGVmdDsgdmVydGljYWwtYW etM617DIGd qXhbRFGgdJ7jRYKggVNxaB vzKZ6tSHMzfwcrSkFAIFSQ BcndZKFKD20yOHakyNI+PH WcNFP1xFqi ICiyYHQppK4aPEFvH5w0Rs NvMcE9TArwN2OpWCLavjkz Dd96mI9iWeIqKnG5QMhdV0 VgriP4TOEw wJQlUGycGZE2Z05ex3N0FS FwFDZrATD3oCO3hN2pmJcx bjogbGVmdDsgdmVydGljYW qrYZnlE719 CAApwMizXkJ5KiJ6CnE8HD Y9P4ZgVlk7FMRsxScpBQ4p zOGbAUrmVe9oeUubaCbbKO 4wNTBpbjtw QVOyxG9zJYXtsHIcjRrwBA 4cUMBtowssj395WiHtOCE6 DSHprVQoS7JlbA3pFzKfLI WfPWLuZ2Qx uJGgACltI574MJrqDzA2WS EverLrW2EfWBGmoPuoUkD3 z5W2Us2oPIFSYGQojngihZ Q+PHRkIHN0 bFgmQBqmOYZkeI4kNILgQ6 h3CdBmWxW2VYzbR2SmYHQp zeniQm29qF8kRiDiQiP2PB nkX4NgieE6 SRQleZImBGdxLVB0D91im1 O7XNEtPJTvSTP9rTB3fK1w bGlnbjogbGVmdDsgdmVydG ljYWwtYWxp L371GNZtuTxxLn4iyEA4N5 AzMtc3XQKjmUqmKM1wjJGy AIkdXg6usOviqExeVD3gSG BpbjtwYWRk iC0dQCIszMJwsHrxFX3wDQ Skbncrh753OqQwNHE7BIFy iAOuU3EnhG4nTmCnHDDrEO QxH9ZgcGUx FGkkS030KTetWtS1GWMlma HtZ4SpBKOszXjdAmW9e0F8 Cu1UtJZhJCUmKY65PS43EL 52G9CbPqcs dGFibGU+PHRhYmxlIHdpZH UmSUthQYJhHlEixKteVS6k Hx0eRBDjVWNxzPfskSXyTm Psh4gkRZLp KUyvYT2ucTioH2PnsOZ7QY Cni3g2Fj55G15fB6IrxRV+ QUNamNR7oYP6uM9xUiYeDj A8KIdrM989 HzAcuKGkUhsqw6gee8jbyP p9LdPhGDFjlaXjmHkgCWC6 i6GdRj91T61hUCywYCBwWV IyMCUiIHZh uPovwz3ziS5hTz6+PGNvbC D3rAU9cF7sKdZuImI9AQdd R026LtMthDNuHfrgD11wS2 JvdXA+PHRy Rni7KMUjbVgwOT7teGFuNM toYh1hJLZ2SrIoFvWuQFhg G9VgTMHfawnhbubsdPH2DR OpBEGmmP99 Dk0pkGkhWd1mYIWwDDV7FP OssUZcM3NatD9yXyByMGQx ENWyI1XgiZBrPTmiX678MM kfJpB3JHLh ifWtT0MnJNDilXhbGpR8f0 J5Xj2OmUtogZEqIF4oMfJk MJf9R6IgChz0GEIsnGkmOO 0ncGFkZGlu Cb0amOktfNpiOA0nIZTbpy whq243DaCwr9hzUPDvbNVs KNlkXVO4D14eg6T1QLJlCG UwTTB2lSY4 fJ0axBgwvqvktBFcsRbdbu UxvJmtQRcwEGruD250REIe iNevTzSSHne4A3GrRin1IR EqlHijIR9v uOJsVNylMw4tpPlarCbfPM 8yWQAgyxawr728RgIyc0np NIOhbXToMYynLGP2Y35ew3 R3UHYnASEt QFY4fPQ4iN9uaWjdrmiicC VmdDsgdmVydGljYWwtYWxp Z851LNHzuDmdXi4AYvg8T4 MoVsy0CHHt nXrgOS9piVRdBTusZn5zzY oczYpcEY6lNXZxhzrye707 FrWao9gaZEKrnZQjQGorRB S3D37ex2Z1 YKFpDBHuWXP3kSP0aG6fzR lnbjogbGVmdDsgdmVydGlj ADohWXdoT995ZVZuaCqaPr BheWVyOjwv dGQ+OI17br17U1OrXpsjCj i9HOLzFNF1jML8qE0bIPHm WBwqw5L4sBG4T2AdycHryi 2sc6zoQOWr ZTog (more content not included)... Normal [facility] Operative Reporton Operative Report Patient: AUDREY DONALD L Age: 31 years Sex: Male : 1990 Associated Diagnoses: None Author: Shirley Murrell MD Procedure Operative Information Details: Date/ Time: 05/23/2022 10:00:00. Pre-Op Dx: Kidney stone (YEB22-LD N20.0, Billing Diagnosis, Medical), Foreign Body in [...] serum labs and 24-hour urine . Normal [facility] Comment on above: Result Comment: Elec tronically Signed By: Shirley Murrell MD\.br\Date and Time Signed: 05/27/22 17:07 EST Consent for Procedure/Surger yon 05-26-2022 Consent for Procedure/Surgery [id number]#1.0 0CD:127 [facility] IntraOperative Documentson 0 05-26-2022 IntraOperative Documents [id number]#1.0 0CD:127 [facility] Formson 05-24-2022 Forms [id number] 10 [id number]#1.0 0CD:127 [facility] Consent for Treatmenton 05-02 Consent for Treatment [id number]#1.0 0CD:127 [facility] Main OR Intraoperative Recor don 05-23-2022 Main OR Intraoperative Record IntraOp Document Type FTURO Summary Primary Physician: Shirley Murrell MD Finalized Date/Time: 05/23/22 10:14:49 Pt. Name: KIRBYLESLYETHAN D.O.B./Sex: 1990 Male Med Rec #: [id number] Physician: Shirley Murrell MD Financial #: [id number] Pt. 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 Main OR Preoperative Recordo n 05-23-2022 Main OR Preoperative Record Holding Area Document Type FTURO Summary Primary Physician: Shirley Murrell MD Finalized Date/Time: 05/23/22 10:11:23 Pt. Name: ETHAN DONALD/Sex: 1990 Male Med Rec #: [id number] Physician: Shirley Murrell MD Financial #: [id number] Pt. Type: O Room/Bed: / Admit/Disch: 05/23/22 [...] Comment: difficulty voiding, not Skin Integrity Intact, [place], Warm, & feeling empty, pain in Dry [...] 09:28 NICOLE Eason RN, Ruthann 05/23/22 10:11 [facility] Insurance Correspondence Off iceon 05-17-2022 Insurance Correspondence Office [id number]#1. 00CD:127 [facility] ED Note-Physicianon 05-14-19 ED Note-Physician [id number]#1.0 0CD:127 [facility] RAD - CT Reporton 05-14-2022 RAD - CT Report [id number]#1. 00CD:127 [facility] RAD - CT Report [id number]#1. 00CD:127 [facility] RAD - MISCon 05-14-2022 RAD - MISC [id number]#1. 00CD:127 [facility] RAD - MISC [id number]#1. 00CD:127 [facility] RAD - MISC [id number] 04 [id number]#1. 00CD:[address] [facility] RAD - Ultrasound Reporton RAD - Ultrasound Report [id number]#1. 00CD:[address] [facility] AMYLASEon 05-12-2022 Amylase [Catalytic activity/Vol] 39 U/L Normal 25-115 [facility] Comment on above: Performed By: #### E RUR #### [facility] [address] [address] [address] Pratibha Stevenson CBC AUTO DIFFon 05-12-2022 BASO # 0.0 103/ul Normal 0.0-0.1 [facility] Comment on above: Performed By: #### L ACT #### [facility] [address] [place] [address] Dr. Pratibha Stevenson Basophils/100 WBC (Bld) 0.2 % Normal 0.2-2.0 [facility] Comment on above: Performed By: #### L ACT #### [facility] [address] [place] [address] Dr. Pratibha Stevenson EO # 0.0 103/ul Normal 0.0-0.7 [facility] Comment on above: Performed By: #### L ACT #### [facility] [address] [place] [address] Dr. Pratibha Stevenson Eosinophils/100 WBC (Bld) 0.0 % Critically low 0.9-7.0 [facility] Comment on above: Performed By: #### L ACT #### [facility] [address] [place] [address] Dr. Pratibha Stevenson Erythrocyte distribution width (RBC) [Ratio] 11.7 % Normal 11.0-15.0 [facility] Comment on above: Performed By: #### L ACT #### [facility] [address] [place] [address] Dr. Pratibha Stevenson Hematocrit (Bld) [Volume fraction] 43.0 % Normal 42.0-54.0 [facility] Comment on above: Performed By: #### L ACT #### [facility] [address] [address] [address] Pratibha Stevenson Hemoglobin (Bld) [Mass/Vol] 13.9 g/dL Critically low 14.0-18.0 [facility] Comment on above: Performed By: #### L ACT #### [facility] [address] [address] [address] Pratibha Stevenson IG # 0.03 10e3/ul Normal 0.00-0.03 [facility] Comment on above: Performed By: #### L ACT #### [facility] [address] [address] [address] Pratibha Stevenson IG % 0.3 % Normal 0.0-0.5 [facility] Comment on above: Performed By: #### L ACT #### [facility] [address] [address] [address] Pratibha Stevenson LYMPH # 0.8 103/ul Critically low 1.2-3.8 [facility] Comment on above: Performed By: #### L ACT #### [facility] [address] [address] [address] Pratibha Stevenson Lymphocytes/100 WBC (Bld) 8.6 % Critically low 20.5-60.0 [facility] Comment on above: Performed By: #### L ACT #### [facility] [address] [address] [address] Pratibha Stevenson MANUAL DIFF REQ NO Normal [facility] Comment on above: Performed By: #### L ACT #### [facility] [address] [address] [address] Pratibha Stevenson MCH (RBC) [Entitic mass] 31.0 pg Normal 25.9-34.0 [facility] Comment on above: Performed By: #### L ACT #### [facility] [address] [address] [address] Pratibha Stevenson MCHC (RBC) [Mass/Vol] 32.3 g/dL Normal 29.9-35.2 [facility] Comment on above: Performed By: #### L ACT #### [facility] [address] [address] [address] Pratibha Stevenson MCV (RBC) [Entitic vol] 96.0 fL Critically high 80.0-94.0 [facility] Comment on above: Performed By: #### L ACT #### [facility] [address] [address] [address] Pratibha Stevenson MONO # 0.4 103/ul Normal 0.3-0.8 [facility] Comment on above: Performed By: #### L ACT #### [facility] [address] [address] [address] Pratibha Stevenson Monocytes/100 WBC (Bld) 4.5 % Normal 1.7-12.0 [facility] Comment on above: Performed By: #### L ACT #### [facility] [address] [place] [address] Dr. Pratibha Stevenson NEUT # 8.4 103/ul Critically high 1.4-6.5 [facility] Comment on above: Performed By: #### L ACT #### [facility] [address] [place] [address] Dr. Pratibha Stevenson Neutrophils/100 WBC (Bld) 86.4 % Critically high 43.0-75.0 [facility] Comment on above: Performed By: #### L ACT #### [facility] [address] [place] [address] Dr. Pratibha Stevenson Platelet mean volume (Bld) [Entitic vol] 10.6 fL Normal 9.5-13.5 [facility] Comment on above: Performed By: #### L ACT #### [facility] [address] [place] [address] Dr. Pratibha Stevenson PLT 227 103/ul Normal 150-450 [facility] Comment on above: Performed By: #### L ACT #### [facility] [address] [place] [address] Dr. Pratibha Stevenson RBC 4.48 106/ul Critically low 4.70-6.10 [facility] Comment on above: Performed By: #### L ACT #### [facility] [address] [place], [place] [id number] Dr. Pratibha Stevenson WBC 9.7 103/ul Normal 4.0-11.0 [facility] Comment on above: Performed By: #### L ACT #### [facility] [address] [place], [place] [id number] Dr. Pratibha Stevenson Consent for Procedure/Surger yon 05-12-2022 Consent for Procedure/Surgery [id number] 0CD:[address] [facility] LIPASEon 05-12-2022 Lipase [Catalytic activity/Vol] 110.0 U/L Normal 73.0-393.0 [facility] Comment on above: Performed By: #### E RUR #### [facility] [address] [place] [address] Dr. Pratibha Stevenson Operative Reporton Operative Report [id number] 0CD:[address] [facility] Operative Report [id number] 0CD:[address] [facility] Comment on above: Other Comment: SAMMI PATHAK PAGES PROF 14(COMP METB)on 023 Albumin [Mass/Vol] 3.3 g/dL Critically low 3.4-5.0 [facility] Comment on above: Performed By: #### E RUR #### [facility] [address] [place] [address] Dr. Pratibha Stevenson Albumin/Globulin [Mass ratio] 1.2 {ratio} Normal [facility] Comment on above: Performed By: #### E RUR #### [facility] [address] [place] [address] Dr. Pratibha Stevenson ALP [Catalytic activity/Vol] 68 U/L Normal 46-116 [facility] Comment on above: Performed By: #### E RUR #### [facility] [address] [place] [address] Dr. Pratibha Stevenson ALT [Catalytic activity/Vol] 27 U/L Normal 16-63 [facility] Comment on above: Performed By: #### E RUR #### [facility] [address] [address] [address] Pratibha Stevenson Anion gap [Moles/Vol] 10.4 mmol/L Normal [facility] Comment on above: Performed By: #### E RUR #### [facility] [address] [address] [address] Pratibha Stevenson AST [Catalytic activity/Vol] 25 U/L Normal 15-37 [facility] Comment on above: Performed By: #### E RUR #### [facility] [address] [address] [address] Pratibha Stevenson Bilirubin [Mass/Vol] 0.5 mg/dL Normal 0.2-1.0 [facility] Comment on above: Performed By: #### E RUR #### [facility] [address] [address] [address] Pratibha Stevenson Calcium [Mass/Vol] 8.8 mg/dL Normal 8.5-10.1 [facility] Comment on above: Performed By: #### E RUR #### [facility] [address] [address] [address] Pratibha Stevenson Chloride [Moles/Vol] 105 mmol/L Normal 98-107 [facility] Comment on above: Performed By: #### E RUR #### [facility] [address] [address] [address] Pratibha Stevenson CO2 [Moles/Vol] 26.5 mmol/L Normal 21.0-32.0 [facility] Comment on above: Performed By: #### E RUR #### [facility] [address] [address] [address] Pratibha Stevenson Creatinine [Mass/Vol] 1.15 mg/dL Normal 0.70-1.30 [facility] Comment on above: Performed By: #### E RUR #### [facility] [address] [address] [address] Pratibha Stevenson EGFR-AF CITIZEN [place] >60 Normal >=60 [facility] Comment on above: Performed By: #### E RUR #### [facility] [address] [address] [address] Pratibha Stevenson EGFR-NON AF CITIZEN OF [place] >60 Normal >=60 [facility] Comment on above: Performed By: #### E RUR #### [facility] [address] [address] [address] Pratibha Stevenson Globulin (S) [Mass/Vol] 2.7 g/dL Normal [facility] Comment on above: Performed By: #### E RUR #### [facility] [address] [address] [address] Pratibha Stevenson Glucose [Mass/Vol] 119 mg/dL Critically high 74-106 [facility] Comment on above: Performed By: #### E RUR #### [facility] [address] [place] [address] Dr. Pratibha Stevenson Potassium [Moles/Vol] 3.9 mmol/L Normal 3.5-5.1 [facility] Comment on above: Performed By: #### E RUR #### [facility] [address] [address] [address] Pratibha Stevenson Protein [Mass/Vol] 6.0 g/dL Critically low 6.4-8.2 [facility] Comment on above: Performed By: #### E RUR #### [facility] [address] [place] [address] Dr. Pratibha Stevenson Sodium [Moles/Vol] 138 mmol/L Normal 136-145 [facility] Comment on above: Performed By: #### E RUR #### [facility] [address] [address] [address] Pratibha Stevenson Urea nitrogen [Mass/Vol] 7.0 mg/dL Normal 7.0-18.0 [facility] Comment on above: Performed By: #### E RUR #### [facility] [address] [place] [address] Dr. Pratibha Stevenson Urea nitrogen/Creatinine [Mass ratio] 6.1 mg/mg Normal [facility] Comment on above: Performed By: #### E RUR #### [facility] [address] [place] [address] Dr. Pratibha Stevenson XR KUB 1 VIEWon [...] as clinically indicated. Electronically authenticated by: ROSALINO VIADLES Date: 2022-05-12 06:43 Normal [facility] AMYLASEon 05-11-2022 Amylase [Catalytic activity/Vol] 52 U/L Normal 25-115 [facility] Comment on above: Performed By: #### C MP, GREG, LIPA #### [facility] [address] [place] [address] Dr. Pratibha Stevenson CBC AUTO DIFFon 05-11-2022 BASO # 0.0 103/ul Normal 0.0-0.1 [facility] Comment on above: Performed By: #### C BC #### [facility] [address] [place] [address] Dr. Pratibha Stevenson Basophils/100 WBC (Bld) 0.6 % Normal 0.2-2.0 [facility] Comment on above: Performed By: #### C BC #### [facility] [address] [place] [address] Dr. Pratibha Stevenson EO # 0.2 103/ul Normal 0.0-0.7 [facility] Comment on above: Performed By: #### C BC #### [facility] [address] [place] [address] Dr. Pratibha Stevenson Eosinophils/100 WBC (Bld) 2.3 % Normal 0.9-7.0 [facility] Comment on above: Performed By: #### C BC #### [facility] [address] [place] [address] Dr. Pratibha Stevenson Erythrocyte distribution width (RBC) [Ratio] 11.7 % Normal 11.0-15.0 [facility] Comment on above: Performed By: #### C BC #### [facility] [address] [place] [address] Dr. Pratibha Stevenson Hematocrit (Bld) [Volume fraction] 42.4 % Normal 42.0-54.0 [facility] Comment on above: Performed By: #### C BC #### [facility] [address] [place] [address] Dr. Pratibha Stevenson Hemoglobin (Bld) [Mass/Vol] 14.3 g/dL Normal 14.0-18.0 [facility] Comment on above: Performed By: #### C BC #### [facility] [address] [place] [address] Dr. Pratibha Stevenson IG # 0.01 10e3/ul Normal 0.00-0.03 [facility] Comment on above: Performed By: #### C BC #### [facility] [address] [place] [address] Dr. Pratibha Stevenson IG % 0.2 % Normal 0.0-0.5 [facility] Comment on above: Performed By: #### C BC #### [facility] [address] [place] [address] Dr. Pratibha Stevenson LYMPH # 2.8 103/ul Normal 1.2-3.8 [facility] Comment on above: Performed By: #### C BC #### [facility] [address] [place] [address] Dr. Pratibha Stevenson Lymphocytes/100 WBC (Bld) 41.8 % Normal 20.5-60.0 [facility] Comment on above: Performed By: #### C BC #### [facility] [address] [place] [address] Dr. Pratibha Stevenson MANUAL DIFF REQ NO Normal [facility] Comment on above: Performed By: #### C BC #### [facility] [address] [place] [address] Dr. Pratibha Stevenson MCH (RBC) [Entitic mass] 31.0 pg Normal 25.9-34.0 [facility] Comment on above: Performed By: #### C BC #### [facility] [address] [place] [address] Dr. Pratibha Stevenson MCHC (RBC) [Mass/Vol] 33.7 g/dL Normal 29.9-35.2 [facility] Comment on above: Performed By: #### C BC #### [facility] [address] [place] [address] Dr. Pratibha Stevenson MCV (RBC) [Entitic vol] 92.0 fL Normal 80.0-94.0 [facility] Comment on above: Performed By: #### C BC #### [facility] [address] [place] [address] Dr. Pratibha Stevenson MONO # 0.5 103/ul Normal 0.3-0.8 [facility] Comment on above: Performed By: #### C BC #### [facility] [address] [place] [address] Dr. Pratibha Stevenson Monocytes/100 WBC (Bld) 7.9 % Normal 1.7-12.0 [facility] Comment on above: Performed By: #### C BC #### [facility] [address] [place] [address] Dr. Pratibha Stevenson NEUT # 3.1 103/ul Normal 1.4-6.5 [facility] Comment on above: Performed By: #### C BC #### [facility] [address] [place] [address] Dr. Pratibha Stevenson Neutrophils/100 WBC (Bld) 47.2 % Normal 43.0-75.0 [facility] Comment on above: Performed By: #### C BC #### [facility] [address] [place] [address] Dr. Pratibha Stevenson Platelet mean volume (Bld) [Entitic vol] 10.7 fL Normal 9.5-13.5 [facility] Comment on above: Performed By: #### C BC #### [facility] [address] [place], [place] [address] Dr. Pratibha Stevenson PLT 216 103/ul Normal 150-450 [facility] Comment on above: Performed By: #### C BC #### [facility] [address] [place], [place] [address] Dr. Pratibha Stevenson RBC 4.61 106/ul Critically low 4.70-6.10 [facility] Comment on above: Performed By: #### C BC #### [facility] [address] [place], [place] [address] Dr. Pratibha Stevenson WBC 6.6 103/ul Normal 4.0-11.0 [facility] Comment on above: Performed By: #### C BC #### [facility] [id number] Pratibha Stevenson CT ABD/PELVIS WO CONon [...] by: SAUMYA MARSH Date: 2022-05-11 08:31 Normal [facility] LIPASEon 05-11-2022 Lipase [Catalytic activity/Vol] 241.0 U/L Normal 73.0-393.0 [facility] Comment on above: Performed By: #### C MP, GREG, LIPA #### [facility] [address] [place] [address] Dr. Pratibha Stevenson PROF 14(COMP METB)on 023 Albumin [Mass/Vol] 3.6 g/dL Normal 3.4-5.0 [facility] Comment on above: Performed By: #### C MP, GREG, LIPA #### [facility] [address] [place] [address] Dr. Pratibha Stevenson Albumin/Globulin [Mass ratio] 1.2 {ratio} Normal [facility] Comment on above: Performed By: #### C MP, GREG, LIPA #### [facility] [address] [place] [address] Dr. Pratibha Stevenson ALP [Catalytic activity/Vol] 75 U/L Normal 46-116 [facility] Comment on above: Performed By: #### C MP, GREG, LIPA #### [facility] [address] [place] [address] Dr. Pratibha Stevenson ALT [Catalytic activity/Vol] 28 U/L Normal 16-63 [facility] Comment on above: Performed By: #### C MP, GREG, LIPA #### [facility] [address] [place] [address] Dr. Pratibha Stevenson Anion gap [Moles/Vol] 9.7 mmol/L Normal [facility] Comment on above: Performed By: #### C MP, GREG, LIPA #### [facility] [address] [place] [address] Dr. Pratibha Stevenson AST [Catalytic activity/Vol] 19 U/L Normal 15-37 [facility] Comment on above: Performed By: #### C GREG NGUYEN LIPA #### [facility] [address] [place] [address] Dr. Pratibha Stevenson Bilirubin [Mass/Vol] 0.5 mg/dL Normal 0.2-1.0 [facility] Comment on above: Performed By: #### C GREG NGUYEN LIPA #### [facility] [address] [place] [address] Dr. Pratibha Stevenson Calcium [Mass/Vol] 9.1 mg/dL Normal 8.5-10.1 [facility] Comment on above: Performed By: #### C GREG NGUYEN LIPA #### [facility] [address] [place] [address] Dr. Pratibha Stevenson Chloride [Moles/Vol] 104 mmol/L Normal 98-107 [facility] Comment on above: Performed By: #### C GREG NGUYEN LIPA #### [facility] [address] [place] [address] Dr. Pratibha Stevenson CO2 [Moles/Vol] 29.3 mmol/L Normal 21.0-32.0 [facility] Comment on above: Performed By: #### C GREG NGUYEN LIPA #### [facility] [address] [place] [address] Dr. Pratibha Stevenson Creatinine [Mass/Vol] 1.21 mg/dL Normal 0.70-1.30 [facility] Comment on above: Performed By: #### C GREG NGUYEN, LIPA #### [facility] [address] [place] [address] Dr. Pratibha Stevenson EGFR-AF [place] >60 Normal >=60 [facility] Comment on above: Performed By: #### C GREG NGUYEN, LIPA #### [facility] [address] [place] [address] Dr. Pratibha Stevenson EGFR-NON AF CITIZEN OF [place] >60 Normal >=60 [facility] Comment on above: Performed By: #### C GREG NGUYEN, LIPA #### [facility] [address] [address] [address] Pratibha Stevenson Globulin (S) [Mass/Vol] 3.1 g/dL Normal [facility] Comment on above: Performed By: #### C GREG NGUYEN LIPA #### [facility] [address] [place] [address] Dr. Pratibha Stevenson Glucose [Mass/Vol] 88 mg/dL Normal 74-106 [facility] Comment on above: Performed By: #### C GREG NGUYEN LIPA #### [facility] [address] [place] [address] Dr. Pratibha Stevenson Potassium [Moles/Vol] 4.0 mmol/L Normal 3.5-5.1 [facility] Comment on above: Performed By: #### C GREG NGUYEN, LIPA #### [facility] [address] [place] [address] Dr. Pratibha Stevenson Protein [Mass/Vol] 6.7 g/dL Normal 6.4-8.2 [facility] Comment on above: Performed By: #### C GREG NGUYEN, LIPA #### [facility] [address] [place] [address] Dr. Pratibha Stevenson Sodium [Moles/Vol] 139 mmol/L Normal 136-145 [facility] Comment on above: Performed By: #### C GREG NGUYEN, LIPA #### [facility] [address] [place] [address] Dr. Pratibha Stevenson Urea nitrogen [Mass/Vol] 8.0 mg/dL Normal 7.0-18.0 [facility] Comment on above: Performed By: #### C GREG NGUYEN, LIPA #### [facility] [address] [place] [address] Dr. Pratibha Stevenson Urea nitrogen/Creatinine [Mass ratio] 6.6 mg/mg Normal [facility] Comment on above: Performed By: #### C GREG NGUYEN, LIPA #### [facility] [address] [place] [address] Dr. Pratibha Stevenson XR KUB 1 VIEWon [...] MAUREEN GARDNER Date: 2022-05-11 06:36 Normal [facility] AMYLASEon 05-10-2022 Amylase [Catalytic activity/Vol] 41 U/L Normal 25-115 [facility] Comment on above: Performed By: #### L ACT #### [facility] [address] [place] [address] Dr. Pratibha Stevenson CBC AUTO DIFFon 05-10-2022 BASO # 0.0 103/ul Normal 0.0-0.1 [facility] Comment on above: Performed By: #### L ACT #### [facility] [address] [place] [address] Dr. Pratibha Stevenson Basophils/100 WBC (Bld) 0.7 % Normal 0.2-2.0 [facility] Comment on above: Performed By: #### L ACT #### [facility] [address] [place] [address] Dr. Pratibha Stevenson EO # 0.2 103/ul Normal 0.0-0.7 [facility] Comment on above: Performed By: #### L ACT #### [facility] [address] [place] [address] Dr. Pratibha Stevenson Eosinophils/100 WBC (Bld) 2.8 % Normal 0.9-7.0 [facility] Comment on above: Performed By: #### L ACT #### [facility] [address] [address] [address] Pratibha Stevenson Erythrocyte distribution width (RBC) [Ratio] 11.8 % Normal 11.0-15.0 [facility] Comment on above: Performed By: #### L ACT #### [facility] [address] [address] [address] Pratibha Stevenson Hematocrit (Bld) [Volume fraction] 38.8 % Critically low 42.0-54.0 [facility] Comment on above: Performed By: #### L ACT #### [facility] [address] [place] [address] Dr. Pratibha Stevenson Hemoglobin (Bld) [Mass/Vol] 13.3 g/dL Critically low 14.0-18.0 [facility] Comment on above: Performed By: #### L ACT #### [facility] [address] [place] [address] Dr. Pratibha Stevenson IG # 0.02 10e3/ul Normal 0.00-0.03 [facility] Comment on above: Performed By: #### L ACT #### [facility] [address] [place] [address] Dr. Pratibha Stevenson IG % 0.3 % Normal 0.0-0.5 [facility] Comment on above: Performed By: #### L ACT #### [facility] [address] [place] [address] Dr. Pratibha Stevenson LYMPH # 2.1 103/ul Normal 1.2-3.8 [facility] Comment on above: Performed By: #### L ACT #### [facility] [address] [place] [address] Dr. Pratibha Stevenson Lymphocytes/100 WBC (Bld) 35.3 % Normal 20.5-60.0 [facility] Comment on above: Performed By: #### L ACT #### [facility] [address] [place] [address] Dr. Pratibha Stevenson MANUAL DIFF REQ NO Normal [facility] Comment on above: Performed By: #### L ACT #### [facility] [address] [place] [address] Dr. Pratibha Stevenson MCH (RBC) [Entitic mass] 30.7 pg Normal 25.9-34.0 [facility] Comment on above: Performed By: #### L ACT #### [facility] [address] [place] [address] Dr. Pratibha Stevenson MCHC (RBC) [Mass/Vol] 34.3 g/dL Normal 29.9-35.2 [facility] Comment on above: Performed By: #### L ACT #### [facility] [address] [place] [address] Dr. Pratibha Stevenson MCV (RBC) [Entitic vol] 89.6 fL Normal 80.0-94.0 [facility] Comment on above: Performed By: #### L ACT #### [facility] [address] [place] [address] Dr. Pratibha Stevenson MONO # 0.4 103/ul Normal 0.3-0.8 [facility] Comment on above: Performed By: #### L ACT #### [facility] [address] [place] [address] Dr. Pratibha Stevenson Monocytes/100 WBC (Bld) 7.4 % Normal 1.7-12.0 [facility] Comment on above: Performed By: #### L ACT #### [facility] [address] [place] [address] Dr. Pratibha Stevenson NEUT # 3.1 103/ul Normal 1.4-6.5 [facility] Comment on above: Performed By: #### L ACT #### [facility] [address] [place] [address] Dr. Pratibha Stevenson Neutrophils/100 WBC (Bld) 53.5 % Normal 43.0-75.0 [facility] Comment on above: Performed By: #### L ACT #### [facility] [address] [place] [address] Dr. Pratibha Stevenson Platelet mean volume (Bld) [Entitic vol] 10.2 fL Normal 9.5-13.5 [facility] Comment on above: Performed By: #### L ACT #### [facility] [address] [address] [address] Pratibha Stevenson PLT 197 103/ul Normal 150-450 [facility] Comment on above: Performed By: #### L ACT #### [facility] [address] [address] [address] Pratibha Stevenson RBC 4.33 106/ul Critically low 4.70-6.10 [facility] Comment on above: Performed By: #### L ACT #### [facility] [address] [address] [address] Pratibha Stevenson WBC 5.8 103/ul Normal 4.0-11.0 [facility] Comment on above: Performed By: #### L ACT #### [facility] [address] [place] [address] Dr. Pratibha Stevenson LIPASEon 05-10-2022 Lipase [Catalytic activity/Vol] 134.0 U/L Normal 73.0-393.0 [facility] Comment on above: Performed By: #### L ACT #### [facility] [address] [place] [address] Dr. Pratibha Stevenson PROF 14(COMP METB)on 023 Albumin [Mass/Vol] 3.1 g/dL Critically low 3.4-5.0 [facility] Comment on above: Performed By: #### L ACT #### [facility] [address] [place] [address] Dr. Pratibha Stevenson Albumin/Globulin [Mass ratio] 1.1 {ratio} Normal [facility] Comment on above: Performed By: #### L ACT #### [facility] [address] [place] [address] Dr. Pratibha Stevenson ALP [Catalytic activity/Vol] 68 U/L Normal 46-116 [facility] Comment on above: Performed By: #### L ACT #### [facility] [address] [address] [address] Pratibha Stevenson ALT [Catalytic activity/Vol] 25 U/L Normal 16-63 [facility] Comment on above: Performed By: #### L ACT #### [facility] [address] [address] [address] Pratibha Stevenson Anion gap [Moles/Vol] 11.1 mmol/L Normal [facility] Comment on above: Performed By: #### L ACT #### [facility] [address] [place] [address] Dr. Pratibha Stevenson AST [Catalytic activity/Vol] 16 U/L Normal 15-37 [facility] Comment on above: Performed By: #### L ACT #### [facility] [address] [address] [address] Pratibha Stevenson Bilirubin [Mass/Vol] 0.5 mg/dL Normal 0.2-1.0 [facility] Comment on above: Performed By: #### L ACT #### [facility] [address] [place] [address] Dr. Pratibha Stevenson Calcium [Mass/Vol] 8.6 mg/dL Normal 8.5-10.1 [facility] Comment on above: Performed By: #### L ACT #### [facility] [address] [place] [address] Dr. Pratibha Stevenson Chloride [Moles/Vol] 105 mmol/L Normal 98-107 [facility] Comment on above: Performed By: #### L ACT #### [facility] [address] [place] [address] Dr. Pratibha Stevenson CO2 [Moles/Vol] 26.6 mmol/L Normal 21.0-32.0 [facility] Comment on above: Performed By: #### L ACT #### [facility] [address] [place] [address] Dr. Pratibha Stevenson Creatinine [Mass/Vol] 1.12 mg/dL Normal 0.70-1.30 [facility] Comment on above: Performed By: #### L ACT #### [facility] [address] [place] [address] Dr. Pratibha Stevenson EGFR-AF [place]IZ[place] >60 Normal >=60 [facility] Comment on above: Performed By: #### L ACT #### [facility] [address] [place] [address] Dr. Pratibha Stevenson EGFR-NON AF CITIZEN OF [place] >60 Normal >=60 [facility] Comment on above: Performed By: #### L ACT #### [facility] [address] [place] [address] Dr. Pratibha Stevenson Globulin (S) [Mass/Vol] 2.7 g/dL Normal [facility] Comment on above: Performed By: #### L ACT #### [facility] [address] [address] [address] Pratibha Stevenson Glucose [Mass/Vol] 86 mg/dL Normal 74-106 [facility] Comment on above: Performed By: #### L ACT #### [facility] [address] [address] [address] Pratibha Stevenson Potassium [Moles/Vol] 3.7 mmol/L Normal 3.5-5.1 [facility] Comment on above: Performed By: #### L ACT #### [facility] [address] [place] [address] Dr. Pratibha Stevenson Protein [Mass/Vol] 5.8 g/dL Critically low 6.4-8.2 [facility] Comment on above: Performed By: #### L ACT #### [facility] [address] [place] [address] Dr. Pratibha Stevenson Sodium [Moles/Vol] 139 mmol/L Normal 136-145 [facility] Comment on above: Performed By: #### L ACT #### [facility] [address] [place] [address] Dr. Pratibha Stevenson Urea nitrogen [Mass/Vol] 12.0 mg/dL Normal 7.0-18.0 [facility] Comment on above: Performed By: #### L ACT #### [facility] [address] [address] [address] Pratibha Stevenson Urea nitrogen/Creatinine [Mass ratio] 10.7 mg/mg Normal [facility] Comment on above: Performed By: #### L ACT #### [facility] [id number] Pratibha Stevenson US KIDNEYSon 05-10-2022 US [...] by: SAUMYA MARSH Date: 2022-05-10 08:37 Normal [facility] XR KUB 1 VIEWon 05-10-2022 [...] by: MAUREEN GARDNER Date: 2022-05-10 06:55 Normal [facility] AMYLASEon 05-09-2022 Amylase [Catalytic activity/Vol] 44 U/L Normal 25-115 [facility] Comment on above: Performed By: #### C BC #### [facility] [address] [place] [address] Dr. Pratibha Stevenson CBC AUTO DIFFon 05-09-2022 BASO # 0.1 103/ul Normal 0.0-0.1 [facility] Comment on above: Performed By: #### S JOSE ARMANDO GRASTCX #### [facility] [address] [place] [address] Dr. Pratibha Stevenson Basophils/100 WBC (Bld) 0.9 % Normal 0.2-2.0 [facility] Comment on above: Performed By: #### S JOSE ARMANDO, GRASTCX #### [facility] [address] [place] [address] Dr. Pratibha Stevenson EO # 0.2 103/ul Normal 0.0-0.7 [facility] Comment on above: Performed By: #### S JOSE ARMANDO GRASTCX #### [facility] [address] [place] [address] Dr. Pratibha Stevenson Eosinophils/100 WBC (Bld) 2.6 % Normal 0.9-7.0 [facility] Comment on above: Performed By: #### S JOSE ARMANDO GRASTCX #### [facility] [address] [place] [address] Dr. Pratibha Stevenson Erythrocyte distribution width (RBC) [Ratio] 11.9 % Normal 11.0-15.0 [facility] Comment on above: Performed By: #### S JOSE ARMANDO, GRASTCX #### [facility] [address] [place] [address] Dr. Pratibha Stevenson Hematocrit (Bld) [Volume fraction] 38.8 % Critically low 42.0-54.0 [facility] Comment on above: Performed By: #### S JOSE ARMANDO, GRASTCX #### [facility] [address] [place] [address] Dr. Pratibha Stevenson Hemoglobin (Bld) [Mass/Vol] 13.9 g/dL Critically low 14.0-18.0 [facility] Comment on above: Performed By: #### S SCRN, GRASTCX #### [facility] [address] [place] [address] Dr. Pratibha Stevenson IG # 0.02 10e3/ul Normal 0.00-0.03 [facility] Comment on above: Performed By: #### S SCRN, GRASTCX #### [facility] [address] [address] [address] Pratibha Stevenson IG % 0.4 % Normal 0.0-0.5 [facility] Comment on above: Performed By: #### S SCRN, GRASTCX #### [facility] [address] [place] [address] Dr. Pratibha Stevenson LYMPH # 2.0 103/ul Normal 1.2-3.8 [facility] Comment on above: Performed By: #### S SCRN, GRASTCX #### [facility] [address] [place] [address] Dr. Pratibha Stevenson Lymphocytes/100 WBC (Bld) 34.9 % Normal 20.5-60.0 [facility] Comment on above: Performed By: #### S SCRN, GRASTCX #### [facility] [address] [place] [address] Dr. Pratibha Stevenson MANUAL DIFF REQ NO Normal [facility] Comment on above: Performed By: #### S SCRN, GRASTCX #### [facility] [address] [place] [address] Dr. Pratibha Stevenson MCH (RBC) [Entitic mass] 31.0 pg Normal 25.9-34.0 [facility] Comment on above: Performed By: #### S SCRN, GRASTCX #### [facility] [address] [place] [address] Dr. Pratibha Stevenson MCHC (RBC) [Mass/Vol] 35.8 g/dL Critically high 29.9-35.2 [facility] Comment on above: Performed By: #### S SCRN, GRASTCX #### [facility] [address] [place] [address] Dr. Pratibha Stevenson MCV (RBC) [Entitic vol] 86.6 fL Normal 80.0-94.0 [facility] Comment on above: Performed By: #### S SCRN, GRASTCX #### [facility] [address] [place] [address] Dr. Pratibha Stevenson MONO # 0.4 103/ul Normal 0.3-0.8 [facility] Comment on above: Performed By: #### S JOSE ARMANDO GRASTCX #### [facility] [address] [place] [address] Dr. Pratibha Stevenson Monocytes/100 WBC (Bld) 6.2 % Normal 1.7-12.0 [facility] Comment on above: Performed By: #### S JOSE ARMANDO GRASTCX #### [facility] [address] [place] [address] Dr. Pratibha Stevenson NEUT # 3.1 103/ul Normal 1.4-6.5 [facility] Comment on above: Performed By: #### S JOSE ARMANDO GRASTCX #### [facility] [address] [place] [address] Dr. Pratibha Stevenson Neutrophils/100 WBC (Bld) 55.0 % Normal 43.0-75.0 [facility] Comment on above: Performed By: #### S JOSE ARMANDO GRASTCX #### [facility] [address] [place] [address] Dr. Pratibha Stevenson Platelet mean volume (Bld) [Entitic vol] 9.7 fL Normal 9.5-13.5 [facility] Comment on above: Performed By: #### S JOSE ARMANDO, GRASTCX #### [facility] [address] [place] [address] Dr. Pratibha Stevenson PLT 201 103/ul Normal 150-450 [facility] Comment on above: Performed By: #### S JOSE ARMANDO, GRASTCX #### [facility] [address] [place] [address] Dr. Pratibha Stevenson RBC 4.48 106/ul Critically low 4.70-6.10 [facility] Comment on above: Performed By: #### S JOSE ARMANDO, GRASTCX #### [facility] [address] [place] [address] Dr. Pratibha Stevenson WBC 5.7 103/ul Normal 4.0-11.0 [facility] Comment on above: Performed By: #### S JOSE ARMANDO, GRASTCX #### [facility] [address] [place] [address] Dr. Pratibha Stevenson CULTURE URINEon 05-09-2022 CULTURE URINE Culture Observations : NO GROWTH. Normal [facility] Comment on above: Performed By: #### C BC #### [facility] [address] [place] [address] Dr. Pratibha Stevenson LIPASEon 05-09-2022 Lipase [Catalytic activity/Vol] 98.0 U/L Normal 73.0-393.0 [facility] Comment on above: Performed By: #### C BC #### [facility] [address] [place] [address] Dr. Pratibha Stevenson PROF 14(COMP METB)on 023 Albumin [Mass/Vol] 3.2 g/dL Critically low 3.4-5.0 [facility] Comment on above: Performed By: #### C BC #### [facility] [address] [place] [address] Dr. Pratibha Stevenson Albumin/Globulin [Mass ratio] 1.3 {ratio} Normal [facility] Comment on above: Performed By: #### C BC #### [facility] [address] [place] [address] Dr. Pratibha Stevenson ALP [Catalytic activity/Vol] 74 U/L Normal 46-116 [facility] Comment on above: Performed By: #### C BC #### [facility] [address] [place] [address] Dr. Pratibha Stevenson ALT [Catalytic activity/Vol] 25 U/L Normal 16-63 [facility] Comment on above: Performed By: #### C BC #### [facility] [address] [place] [address] Dr. Pratibha Stevenson Anion gap [Moles/Vol] 10.7 mmol/L Normal [facility] Comment on above: Performed By: #### C BC #### [facility] [address] [place] [address] Dr. Pratibha Stevenson AST [Catalytic activity/Vol] 18 U/L Normal 15-37 [facility] Comment on above: Performed By: #### C BC #### [facility] [address] [address] [address] Pratibha Stevenson Bilirubin [Mass/Vol] 0.7 mg/dL Normal 0.2-1.0 [facility] Comment on above: Performed By: #### C BC #### [facility] [address] [address] [address] Pratibha Stevenson Calcium [Mass/Vol] 8.5 mg/dL Normal 8.5-10.1 [facility] Comment on above: Performed By: #### C BC #### [facility] [address] [place] [address] Dr. Pratibha Stevenson Chloride [Moles/Vol] 106 mmol/L Normal 98-107 [facility] Comment on above: Performed By: #### C BC #### [facility] [address] [place] [address] Dr. Pratibha Stevenson CO2 [Moles/Vol] 27.1 mmol/L Normal 21.0-32.0 [facility] Comment on above: Performed By: #### C BC #### [facility] [address] [place] [address] Dr. Pratibha Stevenson Creatinine [Mass/Vol] 1.16 mg/dL Normal 0.70-1.30 [facility] Comment on above: Performed By: #### C BC #### [facility] [address] [place] [address] Dr. Pratibha Stevenson EGFR-AF [place] >60 Normal >=60 [facility] Comment on above: Performed By: #### C BC #### [facility] [address] [place] [address] Dr. Pratibha Stevenson EGFR-NON AF [place]IZ[place] OF [place] >60 Normal >=60 [facility] Comment on above: Performed By: #### C BC #### [facility] [address] [place] [address] Dr. Pratibha Stevenson Globulin (S) [Mass/Vol] 2.5 g/dL Normal [facility] Comment on above: Performed By: #### C BC #### [facility] [address] [place] [address] Dr. Pratibha Stevenson Glucose [Mass/Vol] 90 mg/dL Normal 74-106 [facility] Comment on above: Performed By: #### C BC #### [facility] [address] [address] [address] Pratibha Stevenson Potassium [Moles/Vol] 3.8 mmol/L Normal 3.5-5.1 [facility] Comment on above: Performed By: #### C BC #### [facility] [address] [address] [address] Pratibha Stevenson Protein [Mass/Vol] 5.7 g/dL Critically low 6.4-8.2 [facility] Comment on above: Performed By: #### C BC #### [facility] [address] [address] [address] Pratibha Stevenson Sodium [Moles/Vol] 140 mmol/L Normal 136-145 [facility] Comment on above: Performed By: #### C BC #### [facility] [address] [address] [address] Pratibha Stevenson Urea nitrogen [Mass/Vol] 12.0 mg/dL Normal 7.0-18.0 [facility] Comment on above: Performed By: #### C BC #### [facility] [address] [address] [address] Pratibha Stevenson Urea nitrogen/Creatinine [Mass ratio] 10.3 mg/mg Normal [facility] Comment on above: Performed By: #### C BC #### [facility] [address] [address] [address] Pratibha Stevenson XR KUB 1 VIEWon [...] EDIS HERNÁNDEZ Date: 2022-05-09 05:31 Normal [facility] CBC AUTO DIFFon 05-08-2022 BASO # 0.1 103/ul Normal 0.0-0.1 [facility] Comment on above: Performed By: #### C BC #### [facility] [address] [address] [address] Pratibha Stevenson Basophils/100 WBC (Bld) 0.4 % Normal 0.2-2.0 [facility] Comment on above: Performed By: #### C BC #### [facility] [address] [place] [address] Dr. Pratibha Stevenson EO # 0.1 103/ul Normal 0.0-0.7 [facility] Comment on above: Performed By: #### C BC #### [facility] [address] [address] [address] Pratibha Stevenson Eosinophils/100 WBC (Bld) 1.0 % Normal 0.9-7.0 [facility] Comment on above: Performed By: #### C BC #### [facility] [address] [place] [address] Dr. Pratibha Stevenson Erythrocyte distribution width (RBC) [Ratio] 11.9 % Normal 11.0-15.0 [facility] Comment on above: Performed By: #### C BC #### [facility] [address] [place] [address] Dr. Pratibha Stevenson Hematocrit (Bld) [Volume fraction] 47.4 % Normal 42.0-54.0 [facility] Comment on above: Performed By: #### C BC #### [facility] [address] [place] [address] Dr. Pratibha Stevenson Hemoglobin (Bld) [Mass/Vol] 17.3 g/dL Normal 14.0-18.0 [facility] Comment on above: Performed By: #### C BC #### [facility] [address] [address] [address] Pratibha Stevenson IG # 0.05 10e3/ul Critically high 0.00-0.03 [facility] Comment on above: Performed By: #### C BC #### [facility] [address] [place] [address] Dr. Pratibha Stevenson IG % 0.4 % Normal 0.0-0.5 [facility] Comment on above: Performed By: #### C BC #### [facility] [address] [place] [address] Dr. Pratibha Stevenson LYMPH # 2.4 103/ul Normal 1.2-3.8 [facility] Comment on above: Performed By: #### C BC #### [facility] [address] [place] [address] Dr. Pratibha Stevenson Lymphocytes/100 WBC (Bld) 18.6 % Critically low 20.5-60.0 [facility] Comment on above: Performed By: #### C BC #### [facility] [address] [place] [address] Dr. Pratibha Stevenson MANUAL DIFF REQ NO Normal [facility] Comment on above: Performed By: #### C BC #### [facility] [address] [place] [address] Dr. Pratibha Stevenson MCH (RBC) [Entitic mass] 31.3 pg Normal 25.9-34.0 [facility] Comment on above: Performed By: #### C BC #### [facility] [address] [place] [address] Dr. Pratibha Stevenson MCHC (RBC) [Mass/Vol] 36.5 g/dL Critically high 29.9-35.2 [facility] Comment on above: Performed By: #### C BC #### [facility] [address] [place] [address] Dr. Pratibha Stevenson MCV (RBC) [Entitic vol] 85.7 fL Normal 80.0-94.0 [facility] Comment on above: Performed By: #### C BC #### [facility] [address] [place] [address] Dr. Pratibha Stevenson MONO # 0.6 103/ul Normal 0.3-0.8 [facility] Comment on above: Performed By: #### C BC #### [facility] [address] [place] [address] Dr. Pratibha Stevenson Monocytes/100 WBC (Bld) 5.0 % Normal 1.7-12.0 [facility] Comment on above: Performed By: #### C BC #### [facility] [address] [place] [address] Dr. Pratibha Stevenson NEUT # 9.6 103/ul Critically high 1.4-6.5 [facility] Comment on above: Performed By: #### C BC #### [facility] [address] [place] [address] Dr. Pratibha Stevenson Neutrophils/100 WBC (Bld) 74.6 % Normal 43.0-75.0 [facility] Comment on above: Performed By: #### C BC #### [facility] [address] [place] [address] Dr. Pratibha Stevenson Platelet mean volume (Bld) [Entitic vol] 9.6 fL Normal 9.5-13.5 [facility] Comment on above: Performed By: #### C BC #### [facility] [address] [place] [address] Dr. Pratibha Stevenson PLT 286 103/ul Normal 150-450 [facility] Comment on above: Performed By: #### C BC #### [facility] [address] [place] [address] Dr. Pratibha Stevenson RBC 5.53 106/ul Normal 4.70-6.10 [facility] Comment on above: Performed By: #### C BC #### [facility] [address] [place] [address] Dr. Pratibha Stevenson WBC 12.8 103/ul Critically high 4.0-11.0 [facility] Comment on above: Performed By: #### C BC #### [facility] [address] [place] [address] ABD/PELV W CONon 05-08-[address] [...] CHAGO ROLLINS Date: 2022-05-08 18:37 Normal [facility] SARS-CoV-2 (COVID-19) RNA MARIKA+probe Ql (Unsp spec) Not detected Normal NOT DETECTED [facility] Comment on above: Result Comment: When [...] for this test is supported by the Automatic Chief of Health and Human Service's declaration that [...] used). Performed By: #### C BC #### [facility] [address] [place] [address] Dr. Pratibha Stevenson ER URINE PROFILEon 3 Bilirubin Ql (U) SMALL Abnormal NEGATIVE [facility] Comment on above: Performed By: #### C BC #### [facility] [address] [place] [address] Dr. Pratibha Stevenson Clarity (U) CLEAR Normal CLEAR [facility] Comment on above: Performed By: #### C BC #### [facility] [address] [place] [address] Dr. Pratibha Stevenson Color (U) DK. ORANGE Abnormal YELLOW [facility] Comment on above: Performed By: #### C BC #### [facility] [address] [place] [address] Dr. Pratibha Stevenson ERURanjan A micrscopic examination will be performed if indicated. Normal [facility] Comment on above: Performed By: #### C BC #### [facility] [address] [place] [address] Dr. Pratibha Stevenson Glucose Ql (U) Negative Normal NEGATIVE [facility] Comment on above: Performed By: #### C BC #### [facility] [address] [place] [address] Dr. Pratibha Stevenson Hemoglobin Ql (U) LARGE Abnormal NEGATIVE [facility] Comment on above: Performed By: #### C BC #### [facility] [address] [place] [address] Dr. Pratibha Stevenson Ketones Ql (U) TRACE Abnormal NEGATIVE [facility] Comment on above: Performed By: #### C BC #### [facility] [address] [place] [address] Dr. Pratibha Stevenson LEUKOCYTES Negative Normal NEGATIVE [facility] Comment on above: Performed By: #### C BC #### [facility] [address] [place] [address] Dr. Pratibha Stevenson Nitrite Ql (U) Negative Normal NEGATIVE [facility] Comment on above: Performed By: #### C BC #### [facility] [address] [place] [address] Dr. Pratibha Stevenson pH (U) 6.5 [pH] Normal 5-9 [facility] Comment on above: Performed By: #### C BC #### [facility] [address] [place] [address] Dr. Pratibha Stevenson Protein (U) [Mass/Vol] 100 mg/dL Abnormal NEGATIVE/ TRACE [facility] Comment on above: Performed By: #### C BC #### [facility] [address] [place] [address] Dr. Pratibha Stevenson SPEC GRAVITY 1.010 Normal 1.005-<=1.025 [facility] Comment on above: Performed By: #### C BC #### [facility] [address] [place] [address] Dr. Pratibha Stevenson UR MICRO IND INDICATED Normal [facility] Comment on above: Performed By: #### C BC #### [facility] [address] [place] [address] Dr. Pratibha Stevenson Urobilinogen Qn (U) 1.0 {Butch'U}/dL Normal 0.2 - 1. 0 [facility] Comment on above: Performed By: #### C BC #### [facility] [address] [place] [address] Dr. Pratibha Stevenson LIPASEon 05-08-2022 Lipase [Catalytic activity/Vol] 417.0 U/L Critically high 73.0-393.0 [facility] Comment on above: Performed By: #### L ACT #### [facility] [address] [address] [address] Pratibha Stevenson PROF 14(COMP METB)on 023 Albumin [Mass/Vol] 4.5 g/dL Normal 3.4-5.0 [facility] Comment on above: Performed By: #### L ACT #### [facility] [address] [place] [address] Dr. Pratibha Stevenson Albumin/Globulin [Mass ratio] 1.3 {ratio} Normal [facility] Comment on above: Performed By: #### L ACT #### [facility] [address] [place] [address] Dr. Pratibha Stevenson ALP [Catalytic activity/Vol] 97 U/L Normal 46-116 [facility] Comment on above: Performed By: #### L ACT #### [facility] [address] [place] [address] Dr. Pratibha Stevenson ALT [Catalytic activity/Vol] 35 U/L Normal 16-63 [facility] Comment on above: Performed By: #### L ACT #### [facility] [address] [place] [address] Dr. Pratibha Stevenson Anion gap [Moles/Vol] 13.7 mmol/L Normal [facility] Comment on above: Performed By: #### L ACT #### [facility] [address] [place] [address] Dr. Pratibha Stevenson AST [Catalytic activity/Vol] 22 U/L Normal 15-37 [facility] Comment on above: Performed By: #### L ACT #### [facility] [address] [place] [address] Dr. Pratibha Stevenson Bilirubin [Mass/Vol] 0.7 mg/dL Normal 0.2-1.0 [facility] Comment on above: Performed By: #### L ACT #### [facility] [address] [place] [address] Dr. Pratibha Stevenson Calcium [Mass/Vol] 9.6 mg/dL Normal 8.5-10.1 [facility] Comment on above: Performed By: #### L ACT #### [facility] [address] [address] [address] Pratibha Stevenson Chloride [Moles/Vol] 99 mmol/L Normal 98-107 [facility] Comment on above: Performed By: #### L ACT #### [facility] [address] [address] [address] Pratibha Stevenson CO2 [Moles/Vol] 29.0 mmol/L Normal 21.0-32.0 [facility] Comment on above: Performed By: #### L ACT #### [facility] [address] [address] [address] Pratibha Stevenson Creatinine [Mass/Vol] 1.43 mg/dL Critically high 0.70-1.30 [facility] Comment on above: Performed By: #### L ACT #### [facility] [address] [address] [address] Pratibha Stevenson EGFR-AF [place]IZ[place] >60 Normal >=60 [facility] Comment on above: Performed By: #### L ACT #### [facility] [address] [address] [address] Pratibha Stevenson EGFR-NON AF [place]IZEN [place] 58 mL/min/1.73m2 Critically low >=60 [facility] Comment on above: Performed By: #### L ACT #### [facility] [address] [address] [address] Pratibha Stevenson Globulin (S) [Mass/Vol] 3.5 g/dL Normal [facility] Comment on above: Performed By: #### L ACT #### [facility] [address] [address] [address] Pratibha Stevenson Glucose [Mass/Vol] 127 mg/dL Critically high 74-106 T [facility] Comment on above: Performed By: #### L ACT #### [facility] [address] [address] [address] Pratibha Stevenson Potassium [Moles/Vol] 3.7 mmol/L Normal 3.5-5.1 [facility] Comment on above: Performed By: #### L ACT #### [facility] [address] [address] [address] Pratibha Stevenson Protein [Mass/Vol] 8.0 g/dL Normal 6.4-8.2 [facility] Comment on above: Performed By: #### L ACT #### [facility] [address] [address] [address] Pratibha Stevenson Sodium [Moles/Vol] 138 mmol/L Normal 136-145 [facility] Comment on above: Performed By: #### L ACT #### [facility] [address] [place] [address] Dr. Pratibha Stevenson Urea nitrogen [Mass/Vol] 13.0 mg/dL Normal 7.0-18.0 [facility] Comment on above: Performed By: #### L ACT #### [facility] [address] [place] [address] Dr. Pratibha Stevenson Urea nitrogen/Creatinine [Mass ratio] 9.1 mg/mg Normal [facility] Comment on above: Performed By: #### L ACT #### [facility] [address] [place] [address] Dr. Pratibha Stevenson URINE MICROSCOPIC ONLYon BACTERIA NONE SEEN Normal NONE SEEN [facility] Comment on above: Performed By: #### C BC #### [facility] [address] [place] [address] Dr. Pratibha Stevenson Bacteria identified Cx Nom (U) NOT INDICATED Normal [facility] Comment on above: Performed By: #### C BC #### [facility] [address] [place] [address] Dr. Pratibha Stevenson CAST NONE SEEN Normal NONE SEEN [facility] Comment on above: Performed By: #### C BC #### [facility] [address] [place], [place] [id number] Dr. Pratibha Stevenson Crystals LM Nom (Urine sed) NONE SEEN Normal NONE SEEN [facility] Comment on above: Performed By: #### C BC #### [facility] [address] [place] [address] Dr. Pratibha Stevenson Epithelial cells LM Ql (Urine sed) FEW Abnormal NONE SEEN /RARE [facility] Comment on above: Performed By: #### C BC #### [facility] [address] [address] [address] Pratibha Stevenson MUCOUS TRACE Abnormal NONE SEEN [facility] Comment on above: Performed By: #### C BC #### [facility] [address] [place] [address] Dr. Pratibha Stevenson RBC (U) [#/Vol] /uL Abnormal 0-2 [facility] Comment on above: Performed By: #### C BC #### [facility] [address] [place] [address] Dr. Pratibha Stevenson WBC 2-5 Abnormal NONE SEEN [facility] Comment on above: Performed By: #### C BC #### [facility] [address] [place] [address] Dr. Pratibha Stevenson XR CHEST 1 Von [...] RAMO ZEPEDA Date: 2022-05-08 17:40 Normal [facility] CBC AUTO DIFFon 03-23-2022 BASO # 0.1 103/ul Normal 0.0-0.1 [facility] Comment on above: Performed By: #### C BC #### [facility] [address] [place] [address] Dr. Pratibha Stevenson Basophils/100 WBC (Bld) 0.9 % Normal 0.2-2.0 [facility] Comment on above: Performed By: #### C BC #### [facility] [address] [place] [address] Dr. Pratibha Stevenson EO # 0.1 103/ul Normal 0.0-0.7 [facility] Comment on above: Performed By: #### C BC #### [facility] [address] [place] [address] Dr. Pratibha Stevenson Eosinophils/100 WBC (Bld) 1.7 % Normal 0.9-7.0 [facility] Comment on above: Performed By: #### C BC #### [facility] [address] [place] [address] Dr. Pratibha Stevenson Erythrocyte distribution width (RBC) [Ratio] 12.3 % Normal 11.0-15.0 [facility] Comment on above: Performed By: #### C BC #### [facility] [address] [place] [address] Dr. Pratibha Stevenson Hematocrit (Bld) [Volume fraction] 47.2 % Normal 42.0-54.0 [facility] Comment on above: Performed By: #### C BC #### [facility] [address] [place] [address] Dr. Pratibha Stevenson Hemoglobin (Bld) [Mass/Vol] 16.0 g/dL Normal 14.0-18.0 [facility] Comment on above: Performed By: #### C BC #### [facility] [address] [place] [address] Dr. Pratibha Stevenson IG # 0.03 10e3/ul Normal 0.00-0.03 [facility] Comment on above: Performed By: #### C BC #### [facility] [address] [place] [address] Dr. Pratibha Stevenson IG % 0.4 % Normal 0.0-0.5 [facility] Comment on above: Performed By: #### C BC #### [facility] [address] [place] [address] Dr. Pratibha Stevenson LYMPH # 2.5 103/ul Normal 1.2-3.8 [facility] Comment on above: Performed By: #### C BC #### [facility] [address] [place] [address] Dr. Pratibha Stevenson Lymphocytes/100 WBC (Bld) 30.4 % Normal 20.5-60.0 [facility] Comment on above: Performed By: #### C BC #### [facility] [address] [place] [address] Dr. Pratibha Stevenson MANUAL DIFF REQ NO Normal [facility] Comment on above: Performed By: #### C BC #### [facility] [address] [address] [address] Pratibha Stevenson MCH (RBC) [Entitic mass] 30.9 pg Normal 25.9-34.0 [facility] Comment on above: Performed By: #### C BC #### [facility] [address] [place] [address] Dr. Pratibha Stevenson MCHC (RBC) [Mass/Vol] 33.9 g/dL Normal 29.9-35.2 [facility] Comment on above: Performed By: #### C BC #### [facility] [address] [place] [address] Dr. Pratibha Stevenson MCV (RBC) [Entitic vol] 91.3 fL Normal 80.0-94.0 [facility] Comment on above: Performed By: #### C BC #### [facility] [address] [place] [address] Dr. Pratibha Stevenson MONO # 0.6 103/ul Normal 0.3-0.8 [facility] Comment on above: Performed By: #### C BC #### [facility] [address] [place] [address] Dr. Pratibha Stevenson Monocytes/100 WBC (Bld) 7.6 % Normal 1.7-12.0 [facility] Comment on above: Performed By: #### C BC #### [facility] [address] [place] [address] Dr. Pratibha Stevenson NEUT # 4.8 103/ul Normal 1.4-6.5 [facility] Comment on above: Performed By: #### C BC #### [facility] [address] [place] [address] Dr. Pratibha Stevenosn Neutrophils/100 WBC (Bld) 59.0 % Normal 43.0-75.0 [facility] Comment on above: Performed By: #### C BC #### [facility] [address] [place] [address] Dr. Pratibha Stevenson Platelet mean volume (Bld) [Entitic vol] 10.2 fL Normal 9.5-13.5 [facility] Comment on above: Performed By: #### C BC #### [facility] [address], [place] [address] Dr. Pratibha Stevenson PLT 258 103/ul Normal 150-450 [facility] Comment on above: Performed By: #### C BC #### [facility] [address] [place], [place] [address] Dr. Pratibha Stevenson RBC 5.17 106/ul Normal 4.70-6.10 [facility] Comment on above: Performed By: #### C BC #### [facility] [address] [place], [place] [address] Dr. Pratibha Stevenson WBC 8.1 103/ul Normal 4.0-11.0 [facility] Comment on above: Performed By: #### C BC #### [facility] [address] [place], [place] [address] ABD/PELVIS WO CONon [...] SHARON GODINEZ Date: 2022-03-22 23:40 Normal [facility] PROF 14(COMP METB)on 022 Albumin [Mass/Vol] 4.2 g/dL Normal 3.4-5.0 [facility] Comment on above: Performed By: #### L ACT #### [facility] [address] [place] [address] Dr. Pratibha Stevenson Albumin/Globulin [Mass ratio] 1.2 {ratio} Normal [facility] Comment on above: Performed By: #### L ACT #### [facility] [address] [address] [address] Pratibha Stevenson ALP [Catalytic activity/Vol] 84 U/L Normal 46-116 [facility] Comment on above: Performed By: #### L ACT #### [facility] [address] [place] [address] Dr. Pratibha Stevenson ALT [Catalytic activity/Vol] 32 U/L Normal 16-63 [facility] Comment on above: Performed By: #### L ACT #### [facility] [address] [place] [address] Dr. Pratibha Stevenson Anion gap [Moles/Vol] 10.6 mmol/L Normal [facility] Comment on above: Performed By: #### L ACT #### [facility] [address] [place] [address] Dr. Pratibha Stevenson AST [Catalytic activity/Vol] 18 U/L Normal 15-37 [facility] Comment on above: Performed By: #### L ACT #### [facility] [address] [place] [address] Dr. Pratibha Stevenson Bilirubin [Mass/Vol] 0.4 mg/dL Normal 0.2-1.0 [facility] Comment on above: Performed By: #### L ACT #### [facility] [address] [place] [address] Dr. Pratibha Stevenson Calcium [Mass/Vol] 9.8 mg/dL Normal 8.5-10.1 [facility] Comment on above: Performed By: #### L ACT #### [facility] [address] [place] [address] Dr. Pratibha Stevenson Chloride [Moles/Vol] 103 mmol/L Normal 98-107 [facility] Comment on above: Performed By: #### L ACT #### [facility] [address] [address] [address] Pratibha Stevenson CO2 [Moles/Vol] 28.2 mmol/L Normal 21.0-32.0 [facility] Comment on above: Performed By: #### L ACT #### [facility] [address] [address] [address] Pratibha Stevenson Creatinine [Mass/Vol] 1.24 mg/dL Normal 0.70-1.30 [facility] Comment on above: Performed By: #### L ACT #### [facility] [address] [place] [address] Dr. Pratibha Stevenson EGFR-AF CITIZEN [place] >60 Normal >=60 [facility] Comment on above: Performed By: #### L ACT #### [facility] [address] [place] [address] Dr. Pratibha Stevenson EGFR-NON AF CITIZEN OF [place] >60 Normal >=60 [facility] Comment on above: Performed By: #### L ACT #### [facility] [address] [place] [address] Dr. Pratibha Stevenson Globulin (S) [Mass/Vol] 3.6 g/dL Normal [facility] Comment on above: Performed By: #### L ACT #### [facility] [address] [place] [address] Dr. Pratibha Stevenson Glucose [Mass/Vol] 102 mg/dL Normal 74-106 [facility] Comment on above: Performed By: #### L ACT #### [facility] [address] [place] [address] Dr. Pratibha Stevenson Potassium [Moles/Vol] 3.8 mmol/L Normal 3.5-5.1 [facility] Comment on above: Performed By: #### L ACT #### [facility] [address] [address] [address] Pratibha Stevenson Protein [Mass/Vol] 7.8 g/dL Normal 6.4-8.2 [facility] Comment on above: Performed By: #### L ACT #### [facility] [address] [address] [address] Pratibha Stevenson Sodium [Moles/Vol] 138 mmol/L Normal 136-145 [facility] Comment on above: Performed By: #### L ACT #### [facility] [address] [place], [place] [address] Dr. Pratibha Stevenson Urea nitrogen [Mass/Vol] 18.0 mg/dL Normal 7.0-18.0 [facility] Comment on above: Performed By: #### L ACT #### [facility] [address] [address] [address] Pratibha Stevenson Urea nitrogen/Creatinine [Mass ratio] 14.5 mg/mg Normal [facility] Comment on above: Performed By: #### L ACT #### [facility] [address] [address] [address] Pratibha Stevenson Vital Signs Date Time Vital Sign Value Performing Clinician Faci lity 03-02-2024 11:02-0400 Body temperature 98.8 [degF] [facility] 03-02-2024 11:02-0400 Diastolic blood pressure 72 mm[Hg] Kym Vidal MD [facility] 03-02-2024 11:02-0400 Heart rate 83 /min [facility] MD [facility] 03-02-2024 11:02-0400 Respiratory rate 16 /min [facility]idal MD [facility] 03-02-2024 11:02-0400 SaO2% (BldA) [Mass fraction] 98 % Kym Vidal MD [facility] 03-02-2024 11:02-0400 Systolic blood pressure 120 mm[Hg] K[facility]idal MD [facility] 03-01-2024 03:44-0400 Body mass index (BMI) [Ratio] 31.82 kg/m2 Kym Vidal MD Work Phone: [facility] 03-01-2024 03:44-0400 Body weight 97.75 kg Kym Vidal MD Work Phone: [facility] 02-27-2024 00:30-0400 Body height 175.3 cm Kym Vidal MD Work Phone: [facility] 07-21-2022 08:57-0400 Blood Pressure Location Shirley Lue [facility] 07-21-2022 08:57-0400 Diastolic blood pressure 69 mm[Hg] Shirley Lue [facility] 07-21-2022 08:57-0400 Heart rate 74 /min Shirley Lue [facility] 07-21-2022 08:57-0400 Systolic blood pressure 133 mm[Hg] Shirley Lue [facility] 07-13-2022 09:17-0400 Blood Pressure Location Shirley Lue [facility] 07-13-2022 09:17-0400 Diastolic blood pressure 68 mm[Hg] Shirley Lue [facility] 07-13-2022 09:17-0400 Heart rate 73 /min Shirley Lue [facility] 07-13-2022 09:17-0400 Systolic blood pressure 124 mm[Hg] Sihrley Lue [facility] Encounters Encounter Date Encounter Type Care Provider Facility Start: 02-27-2024 End: 03-02-2024 Evaluation and management of inpatient Kym Vidal MD Work Phone: [address] Comment on above: Pancytopenia (HCC) ( Primary Dx); Hip pain, unspecified laterality Start: 02-26-2024 End: 02-26-2024 Emergency department patient visit DOLORES REYES [facility] Start: 06-14-2023 End: 06-14-2023 [facility] Start: 06-14-2023 End: 06-14-2023 Subsequent hospital visit by physician Manjit Waller [facility] Comment on above: Arrived Start: 06-12-2023 End: 06-12-2023 ambulatory [facility] Start: 06-12-2023 End: 06-12-2023 Subsequent hospital visit by physician Manjit Waller [facility] Comment on above: Arrived Start: 06-09-2023 End: 06-09-2023 ambulatory [facility] Start: 06-09-2023 End: 06-09-2023 Subsequent hospital visit by physician Flash Goodwin PTA [facility] Comment on above: Arrived Start: 06-05-2023 End: 06-05-2023 ambulatory J[facility] Start: 05-31-2023 End: 05-31-2023 ambulatory [facility]ICIA [facility] Start: 05-29-2023 End: 05-29-2023 ambulatory [facility]ICIA [facility] Start: 05-26-2023 End: 05-26-2023 ambulatory [facility]IC[facility] Start: 05-22-2023 End: 05-22-2023 ambulatory JON [facility] Start: 05-17-2023 End: 05-17-2023 ambulatory LATRICIA [facility] Start: 03-13-2023 End: 03-13-2023 ambulatory [facility]ICIA [facility] Start: 08-11-2022 End: 08-11-[address] LATRICIA GARCIA . Facility: Start: 07-22-2022 End: 07-23-[address] LATRICIA GARCIA . Facility: Start: 07-21-2022 End: 07-22-2022 ambulatory Shirley Nikolai Handy Facility: [facility] Start: 07-21-2022 End: 07-21-2022 Patient encounter procedure Shirley Murrell [facility] Start: 07-20-2022 End: 07-20-[address] LATRICIA GARCIA . Facility: Start: 07-13-2022 End: 07-14-2022 ambulatory Shirley M. Jollylala Facility:[facility] Start: 07-13-2022 End: 07-13-2022 Patient encounter procedure Shirley Murrell [facility] Ernesto Start: 07-06-2022 End: 07-07-2022 ambulatory SHIRLEY M JOLLYLala . Facility: Start: 05-23-2022 End: 05-24-2022 ambulatory Shirleymaria del rosario Murrell Facility[facility] Start: 05-23-2022 End: 05-23-2022 Patient encounter procedure Shirley Murrell [facility] Start: 05-11-2022 End: 05-12-2022 ambulatory Shirley ZionJoselin Murrell Facility:[id number] Start: 05-08-2022 End: 05-12-[address] [...] 03-02-2024 SCAN OF BLOOD SMEAR Jenny Alvarez [facility] Work Phone: Start: 03-01-2024 Rhythm ecg 1-3 leads w/interpretation & report Unknown Provider Result Start: 03-01-2024 MYELOID MALIGNANCIES MUTATION PANEL Ruth Wyman MD Work Phone: Start: 03-01-2024 Diagnostic bone marrow biopsies Jenny Alvarez [facility] Work Phone: Start: 03-01-2024 Rhythm ecg 1-3 leads w/interpretation & report Unknown Provider Result Start: 03-01-2024 Blood count complete auto&auto difrntl wbc Jenny Alvarez [facility] Work Phone: Start: 03-01-2024 SCAN OF BLOOD SMEAR Jenny Alvarez [facility] Work Phone: Start: 02-29-2024 End: 02-29-2024 Ecg routine ecg w/least 12 lds i&r only Ruth Wyman MD Work Phone: Start: 02-29-2024 Blood smear peripheral interp phys w/writ report Jenny [facility] Work Phone: Start: 02-29-2024 DIAGNOSTIC QUAL BCR-ABL1 ASSAY W REFLEX TO P190 OR P210 QUANT ASSAYS Jenny Alvarez [facility] Work Phone: Start: 02-29-2024 Calcium ionized Maureen [...] VIRUS (EBV) ANTIBODY PANEL I Yasmin Ambrosio [employer] - INPATIENT AUDITOR Work Phone: Start: 02-28-2024 Mri brain brain stem w/o w/contrast material Jenny Gunter [employer] - INPATIENT AUDITOR Work Phone: Start: 02-28-2024 End: 02-28-2024 Ecg [...] Start: 02-28-2024 Anion gap [Moles/Vol] Jenny Russoters [employer] - INPATIENT AUDITOR Work Phone: Start: 02-28-2024 GLOMERULAR FILTRATION RATE, ESTIMATED Jenny Gunter [employer] - INPATIENT AUDITOR Work Phone: Start: 02-28-2024 Lactate dehydrogenase ldh Ruth Wyman MD Work Phone: Start: 02-27-2024 VITAMIN B12 & FOLATE Yasmin Ambrosio [employer] - INPATIENT AUDITOR Work Phone: Start: 02-27-2024 EEG 24 HOUR AMBULATORY Jenny Gunter [employer] - INPATIENT AUDITOR Work Phone: Start: 02-27-2024 Electroencephalogram w/rec awake&asleep Jenny Russoters [employer] - INPATIENT AUDITOR Work Phone: Start: 02-27-2024 End: 02-27-2024 C-reactive protein Barak Colon MD Work Phone: Start: 02-27-2024 End: 02-27-2024 Calcium ionized Jenny Beavers Lyric AP RN - INPATIENT AUDITOR Work Phone: Start: 02-27-2024 REFERENCE LAB SAMPLE Jennysona Gunter A PRN - INPATIENT AUDITOR Work Phone: Start: 02-27-2024 Urnls dip stick/tablet reagent auto microscopy Jenny Beavers Lyric [employer] CLE[employer]ER - INPATIENT AUDITOR Work Phone: Start: 02-27-2024 End: 02-27-2024 Rhythm [...] Pancytopenia (HCC) Expected: 04/01/2024 (Approximate), Expires: 03/02/2025 [employer] Comment on above: Expected: 04/01/2024 (Approximate), Expires: 03/02/2025 Start: 03-02-2024 End: 03-02-2025 CBC panel - Blood by Automated count CBC Lab Routine Pancytopenia (HCC) Expected: 03/02/2024 (Approximate), Expires: 03/02/2025 [employer] Comment on above: Expected: 03/02/2024 (Approximate), Expires: 03/02/2025 Start: 12-31-2023 COVID-19 Vaccine () COVID-19 Vaccine () [employer] Start: 11-30-2023 Influenza vaccination Flu vaccine (# 1) [employer] Start: 06-26-2023 End: 06-26-2023 Patient encounter procedure 06/26/2023 2:30 PM EST Appointment [facility] [address] [place] [id number] Manjit Waller [facility] Start: 06-23-2023 End: 06-23-2023 Patient encounter procedure 06/23/2023 1:45 PM EST Appointment [facility] [address] [place] [id number] Flash Goodwin PTA [facility] Start: 06-19-2023 End: 06-19-2023 Patient encounter procedure 06/19/2023 3:15 PM EST Appointment [facility] [address] [place] [phone] Manjit Waller [facility] Start: 06-14-2023 End: 06-14-2023 Patient encounter procedure 06/14/2023 3:30 PM EST Appointment [facility] [address] [place] [phone] Manjit Waller [facility] Start: 06-12-2023 End: 06-12-2023 Patient encounter procedure 06/12/2023 3:15 PM EST Appointment [facility] [address] [place] [phone] Manjit Waller [facility] Start: 11-29-2022 Influenza vaccination Flu vaccine (# 1) [facility] Start: 2010 Hepatitis C screening Hepatitis C sc reen [facility] Start: 08-18-2007 HIV screening HIV screen [facility] Start: 2005 Varicella vaccine (1 of 2 - 13+ 2-dose series) Varicella vaccine (1 of 2 - 13+ 2-dose series) [facility] Start: 2004 Depression Screen Depression Screen [facility] Start: 08-18-2003 DTaP/Tdap/Td vaccine (6 - Tdap) DTaP/Tdap/Td vaccine (6 - Tdap) [facility] Start: 1998 Pneumococcal 0-64 ye ars Vaccine (1 of 2 - PCV) Pneumococcal 0-64 years Vaccine (1 of 2 - PCV) [facility] Start: 1993 Varicella vaccine (1 of 2 - 2-dose childhood series) Varicella vaccine (1 of 2 - 2-dose childhood series) [facility] Start: 02-16-1993 COVID-19 Vaccine (#1) COVID-19 Vacci ne (#1) [facility] End: 03-03-2024 CBC W Auto Differential panel - Blood CBC with Auto Differential Lab Routine Daily for 3 Days starting 03/01/2024 until 03/03/2024, 2 completed [facility] Comment on above: Daily for 3 Days sta rting 03/01/2024 until 03/03/2024, 2 completed End: 03-01-2024 Chromosome analysis, bone marrow [facility] Comment on above: Once for 1 Occurrenc es starting 03/01/2024 until 03/01/2024 Diagnostic Qual BCR- ABL1 Assay w Reflex to p190 or p210 Quant Assaysantitative Assays Diagnostic Qual BCR-ABL1 Assay w Reflex to p190 or p210 Quant Assaysantitative Assays Lab Routine 02/29/2024 5:30 PM EDT [facility] End: 02-29-2024 Flow Cytometry Leukemia/Lymphoma, Bone Marrow Flow Cytometry Leukemia/Lymphoma, Bone Marrow Lab Routine One Time for 1 Occurrences starting 02/29/2024 until 02/29/2024 [facility] Comment on above: One Time for 1 Occur rences starting 02/29/2024 until 02/29/2024 End: 03-01-2024 Flow Cytometry Leukemia/Lymphoma, Bone Marrow [facility] Comment on above: Once for 1 Occurrenc es starting 03/01/2024 until 03/01/2024 End: 03-02-2024 Leukemia / lymphoma phenotype [facility] Work Phone: Comment on above: One Time for 1 Occur rences starting 03/02/2024 until 03/02/2024 End: 03-01-2024 Myeloid Malignancies Mutation Panel [facility] Comment on above: One Time for 1 Occur rences starting 03/01/2024 until 03/01/2024 Oxygen therapy [[facility]] Initiate Oxygen Therapy Protocol Respiratory Care Routine As Needed until discontinued starting 02/27/2024 [facility] Work Phone: Comment on above: As Needed until disc ontinued starting 02/27/2024 Immunizations Immunization Date Immunization Notes Care Provider Khushbu thao 12-26-1997 DTaP, unspecified formulation Shirley Lue [facility] 12-26-1997 measles, mumps and rubella virus vaccine Shirley Lue [facility] 01-10-1994 DTaP, unspecified formulation Shirley Lue [facility] 01-10-1994 hepatitis B vaccine, pediatric or pediatric/adolescent dosage Shirley Lue [facility] [facility] 01-10-1994 Hib, unspecified formulation Shirley Lue [facility] 01-10-1994 measles, mumps and rubella virus vaccine Shirley Lue [facility] 03-12-1993 Hib, unspecified formulation Shirley Lue [facility] 01-01-1993 hepatitis B vaccine, pediatric or pediatric/adolescent dosage Shirley Lue [facility] 01-01-1993 Hib, unspecified formulation Shirley Lue [facility] 1992 hepatitis B vaccine, pediatric or pediatric/adolescent dosage Shirley Lue [facility] 1992 Hib, unspecified formulation Shirley Lue [facility] Payers Date Payer Category Payer Unknown [id number] 2.16.8 40.1.290275.3.579.2.727 1992 Unknown [id number] 2.16.8 40.1.662337.3.579.2.727 1992 Unknown [id number] 2.16.8 40.1.447104.3.579.2.727 1992 Unknown [id number] 2.16.8 40.1.791951.3.579.2.727 1992 Unknown [id number] 2.16.84 0.1.747003.3.579.2.593 1992 Unknown [id number] 2.16.84 0.1.183384.3.579.2.593 1992 Unknown [id number] 2.16.84 0.1.279634.3.579.2.593 1992 Unknown [id number] 2.16.84 0.1.690278.3.579.2.593 1992 Unknown [id number] 2.16.84 0.1.844413.3.579.2.593 1992 Unknown [id number] 2.16.84 0.1.980464.3.579.2.593 1992 Unknown [id number] 2.16.8 40.1.870812.3.579.2.173 1992 Unknown [id number] 2.16.8 40.1.485364.3.579.2.173 1992 Unknown [id number] 2.16.8 40.1.204918.3.579.2.173 1992 Unknown [id number] 2.16.8 40.1.523053.3.579.2.173 1992 Unknown [id number] 2.16.8 40.1.964526.3.579.2.173 1992 Unknown [id number] 2.16.8 40.1.591889.3.579.2.173 1992 Unknown [id number] 2.16.8 40.1.089768.3.579.2.173 1992 Unknown [id number] 2.16.8 40.1.380400.3.579.2.173 1992 Unknown [id number] 2.16.8 40.1.654649.3.579.2.173 1992 Unknown [id number] 2.16.8 40.1.217281.3.579.2.173 1992 Unknown [id number] 2.16.8 40.1.163379.3.579.2.173 1957 Medicaid [id number] 1957 Self-pay [id number] Self-pay Social History Date Type Detail Facility Tobacco smoking status [facility] Start: 02-26-2024 End: 02-27-2024 Sex Assigned At Male [facility] Start: 07-13-2022 End: 07-21-2022 Tobacco smoking status Light tobacco smoker (finding) [facility] Tobacco smoking status Never [facility] consumption unknown [employer] Start: 1990 Sex Assigned At Not on file B ON [employer] Start: 02-26-2024 Tobacco [facility] tobacco daily [employer] History of tobacco use Cigarette Smoker B on [employer] Start: 02-26-2024 Tobacco use and exposure Former smokeless tobacco user [employer] Start: 03-01-2024 Alcoholic beverage intake Ex-drinker (finding) [employer] Start: 02-26-2024 End: 02-27-2024 History of Social function [employer] Has the [place] or water Active [employer] threatened to shut off services in your home in past 12Mo No [employer] (I/We) worried fanta er (my/our) food would run out before (I/we) got money to buy more. Never true [employer] Functional Status Date Assessment Result Facility 07-21-2022 Functional Status N/A [facility] Desiree 07-13-2022 Functional Status N/A [facility] Ernesto 05-12-2022 Functional Status N/A [facility] Clinical Notes 05-26-2022 to 03-02-2024 Daphne [...] per family. [place] [facility] [place] - OUT REPORT: Verbal report given [...] fibromyalgia, tobacco use disorder who presented to [facility] on 02/27/2024 for evaluation of loss of [...] Mendoza. 0904 Samples collected and given to tax advisor for further review. 0906 Procedure completed; patient [...] Multiple personality disorder, Fibromyalgia who presented to [facility] on 02/26 with chief complaint of loss of consciousness. Directly admitted from [facility]. Reported on 02/22 having seizure while at [...] Service - 02/29/2024 Neurology Progress Note Date:02/29/2024 Room:[address] [place] [address] Patient Name:Ethan Donald Date of :1990 Age:33 y.o. CC: No chief complaint on file. Subjective Ethan Donald is a 33 y.o. male with a history of Multiple Personality Disorder, Fibromyalgia and Marijuana and Tobacco dependence who presented to [facility] after passing out at his psychiatrist office; transferred to [facility] on 02/26/2024 for neurology evaluation. Patient reports [...] time. Motor: Motor strength is normal. Coordination: Atddop-Utnm-Mcplkf Test and Heel to Gutierrez Test normal. [...] Patient: Ethan Donald 33 y.o. male Unit/Bed: [address] [place] [address] Admit Date: 02/27/2024 ASSESSMENT AND PLAN Active [...] Multiple personality disorder, Fibromyalgia who presented to [facility] on 02/26 with chief complaint of loss of consciousness. Directly admitted from [facility]. Reported on 02/22 having seizure while at [...] Service - 02/28/2024 Neurology Progress Note Date:02/28/2024 Room:[address] [place] [address] Patient Name:Ethan Donald Date of :1990 Age:33 y.o. CC: No chief complaint on file. Subjective Ethan Donald is a 33 y.o. male with a history of Multiple Personality Disorder, Fibromyalgia and Marijuana and Tobacco dependence who presented to [facility] after passing out at his psychiatrist office; transferred to [facility] on 02/26/2024 for neurology evaluation. Patient reports [...] of Arthritis, Fibromyalgia, Multiple personalities (HCC), and Roberta-Schlatter's disease. Social History: reports that he has [...] time. Motor: Motor strength is normal. Coordination: Makngj-Saxo-Bpyeys Test and Heel to Gutierrez Test normal. [...] plan. Spiritual Health History and Assessment/Progress Note [facility] (P) Advance Care Planning, , , Name: Ethan Donald Age: 33 y.o. Sex: male Language: Chinese Mormon: None New onset seizure (HCC) Date: 02/28/2024 Total Time Calculated: (P) 35 min Spiritual Assessment continued in [facility] 4A Referral/Consult From: (P) Nurse Encounter [...] of Hope, please send discharge medication to [facility]. Thank you! Misti Tineo CPhT - Prescription Assistance ([phone]) 02/27/2024,3:31 PM Assessment: Ethan is a 33 year old male resting in his bed alone, ca.lm. tired and awake. This visit is in response to a Spiritual Consult to discuss ACP document.Please see ACP note for detail [facility] Neurodiagnostic Radio Talk Show Host Worksheet EEG Date: 02/27/2024 Name: Ethan Donald : 1990 Age: 33 y.o. Sex: male CSN: [id number] Room/Location: Ordering Provider: Brian Gunter EEG Number: [...] Deprived: Yes Seizures Observed: No Mentality: alert [employer]: Bahman Robledo 02/27/2024 [facility], Dr Reyes. 33 yo new onset seizure, headache and syncopal episode. Wed. he had a seizure in his sleep, bit his tongue. Followed up with PCP and [facility]. At PCP appt today had a pain in head, passed out, came to ED. CT head without contrast nothing acute. No CT with contrast done because wasn't sure if he had contrast at [facility]. No ability to do MRI after 4PM. Questioning temporal arteritis , 60 mg solumedrol given, also given zofran . WBC 4.1, sed rate 17, CRP 81.9. Vials afebrile, 138/84, 92, 18, 97% on room air. documented in this encounter [facility] 03-02-2024 Hospital Discharge instructions Maureen Hampton DO - 03/02/2024 11:54 AM EDT Follow up with your family doctor in the next week. Continue to wear mask for a precaution when around family and friends. Follow up with Neurology, continue seizure precautions. Do not drive motor vehicles until you follow up and see neurology. 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 -met Water Resource Specialist Goals Time Frame for Water Resource Specialist Goals : 6 weeks Water Resource Specialist Goal 1: Patient to be independent and compliant with HEP. -met Water Resource Specialist Goal 2: Patient to have improved R knee AROM 0-120* with no increase in pain for improved mobility. -met (05/31/23 R knee AROM 0-130*) Water Resource Specialist Goal 3: Patient to have improved R LE strength >/=4/5 grossly all major joints and planes for improved knee stability with gait. Mcfp Goal 4: Pt to report ability to walk community distances with no AD and no gait deviations or increase in pain to return to PLOF. -progressing Minutes Tracking: Time In: 1530 Time Out: 1614 Minutes: 44 Timed Code Treatment Minutes: 43 Minutes Manjit Thorpe Date: 06/14/2023 documented in this encounter 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 -met Mcfp Goals Time Frame for Water Resource Specialist Goals : 6 weeks Mcfp Goal 1: Patient to be independent and compliant with HEP. -met Water Resource Specialist Goal 2: Patient to have improved R knee AROM 0-120* with no increase in pain for improved mobility. -met (05/31/23 R knee AROM 0-130*) Water Resource Specialist Goal 3: Patient to have improved R LE strength >/=4/5 grossly all major joints and planes for improved knee stability with gait. Water Resource Specialist Goal 4: Pt to report ability to walk community distances with no AD and no gait deviations or increase in pain to return to PLOF. -progressing Minutes Tracking: Time In: 1515 Time Out: 1558 Minutes: 43 Timed Code Treatment Minutes: 41 Minutes Manjit Thorpe Date: 06/12/2023 documented in this encounter [facility] 07-[facility]-2022 Hospital Discharge instructions Patient Education 07/21/2022 [...] include: ?Spinach. ?Rhubarb. ?Beets. ?Potato chips and serbian fries. ?Nuts. If you regularly take a diuretic medicine, make sure to eat at least 1 2 fruits or vegetables high in potassium each day. These include: ?Avocado. ?Banana. ?[place], prune, carrot, or tomato juice. ?Baked potato. [...] Casseroles. Pizza. Lasagna. Frozen meals. Potato chips. Thai fries. Summary You can reduce your risk [...] 08/12/2011 Document Revised: 08/07/2019 Document Reviewed: 03/28/2017 Truly Accomplished Patient Education 2020 [employer] Follow Up Care 07/20/2022 16:11:07 With:Shirley Murrell MD, URL, URO Address: When: Unknown [facility] Desiree 07-13-2022 Hospital Discharge instructions Patient Education [...] include: ?Spinach. ?Rhubarb. ?Beets. ?Potato chips and serbian fries. ?Nuts. If you regularly take a diuretic medicine, make sure to eat at least 1 2 fruits or vegetables high in potassium each day. These include: ?Avocado. ?Banana. ?[place], prune, carrot, or tomato juice. ?Baked potato. [...] Casseroles. Pizza. Lasagna. Frozen meals. Potato chips. Thai fries. Summary You can reduce your risk [...] 08/12/2011 Document Revised: 08/07/2019 Document Reviewed: 03/28/2017 Truly Accomplished Patient Education 2020 [employer] ([employer]). Follow Up Care 05/23/2022 10:22:28 With:Handy WILEY, Shirley Menchaca, URL, URO Address: When: Unknown [facility] 05-26-2022 Note [id number]:[address] [facility] Evaluation + Plan note Future Appointments Appointment Date:07/13/2022 09:00:00 AM Scheduled Provider:Shirley Murrell MD Location:[facility] Appointment Type:URO Office Visit [facility] Evaluation note Diagnosis New onset seizure (HCC)- Primary Other convulsions Pancytopenia (HCC) Other pancytopenia Hip pain, unspecified laterality Pancytopenia (HCC) Other pancytopenia documented in this encounter [facility] course Narrative No data available for this section [facility] Dis[facility] instructions No data available for this section [facility] No data available for this section [facility] Summary Purpose Family History No Family History Records FoundNo Family History Records FoundNo Family History Records FoundNo Family History Records Found Advance Directives No Advanced Directives Records FoundDocuments on File Type Date Recorded Patient Curtain Stitcher Expl anation ACP-Advance Directive 02/29/2024 2:09 PM Date Activated Date Inactivated Comments 02/27/2024 12:32 AM Healthcare Agents on File Name Relationship Healthcare Agent Relationshi p Communication Daisy Araujo Girlfriend Primary Decision Maker Hiren Donald Parent Secondary Decision Maker Additional Source Comments Patient Care team informatio n (unrecognized section and content) Civil Engineer Land Development Relationship Specialty Start Date End Date Latricia Garcia MD [address] [place] [address] PCP - General Family Medicine 02/16/23 Civil Engineer Land Development Relationship Specialty Start Date End Date Latricia Garcia MD [address] [place] [address] PCP - General Family Medicine 02/16/23 Civil Engineer Land Development Relationship Specialty Start Date End Date Latricia Garcia MD [address] [place] [address] PCP - General Family Medicine 02/16/23 (unrecognized sect ion and content) No Status Records FoundNo Status Records FoundNo Status Records FoundNo Status Records Found INFORMATION SOURCE (unrecogn ized section and content) DATE CREATED AUTHOR 07/31/[address] [facility] DATE CREATED AUTHOR AUTHOR'S ORGANIZ ATION 09/13/2022 [facility] DATE CREATED AUTHOR AUTHOR'S ORGANIZ ATION 02/28/2024 [facility] DATE CREATED AUTHOR AUTHOR'S ORGANIZ ATION 03/12/2024 [facility] Reason for Visit (unrecogniz ed section and content) Specialty Diagnoses / Procedures Referred By Genoveva bowers Referred To Contact Diagnoses New onset seizure (HCC) new onset seizure [facility] [address] [place] [address] [facility] [address] [place] [address] Referral ID Status Reason Start Date Expiration Date Visits Re quested Visits Authorized [id number] 1 1 Ordered Prescriptions (unrec ognized section [...] Adame RN)075 (Not Given - Provider: Joanna Admae RN - Reason: Patient/family refused) 075 (Not [...] CrCl less than 30ml/min, On hold since [facility] 02/29/2024 at 1438 until manually unheld [...] Until Discontinued, Pain 1116 (Given - Provider: Daphen Alonzo, RN) polyethylene glycol (GLYCOLAX) packet 17 [...] BE BASED ON THE PRIMARY CLINICAL RECORDS. [employer] provides no warranty or guarantee of the accuracy or completeness of information in this document.
== END 2024-03-20 12:30 | disposition home or self-care (01) ==
LOC: MRI 12:29
PROVIDERS: PCP Family Medicine; Visit Provider Family Medicine
DX: R41.3 Other amnesia (principal); R25.1 Tremor, unspecified
CPT/HCPCS: 70553; A9575

== ENCOUNTER 2024-03-21 07:19 | Outpatient (OUT) | payer MEDICAID, SELFPAY ==
--- NOTE | 2024-03-21 07:21 | US_ITS ---
The [address] [address] Patient Name: OLEGARIO DONALD MRN: [id number] date: 1990 Sex: M Assigned Patient Location: Current Patient Location: Accession/Order Number: [id number] Exam Date: 03/21/2024 07:28 Report Date: 03/22/2024 05:57 At the request of: LATRICIA GARCIA Procedure: US renal bladder EXAMINATION: US renal bladder HISTORY: Abnormal renal function COMPARISON: CT abdomen pelvis 02/25/2024 TECHNIQUE: Ultrasound examination was performed of the kidneys and urinary bladder. FINDINGS: RIGHT KIDNEY: Nonobstructing 4 mm stone within inferior pole. No appreciable mass, hydronephrosis, or significant cortical thinning. Normal parenchymal echogenicity. Color Doppler demonstrates blood flow within the kidney. Kidney: 9.1 x 4.8 x 4.8 cm per LEFT KIDNEY: Nonobstructing 5 mm stone within inferior pole. No appreciable mass, hydronephrosis, or significant cortical thinning. Normal parenchymal echogenicity. Color Doppler demonstrates blood flow within the kidney. Kidney: 11.4 x 6.0 x 5.7 cm BLADDER: No visible wall thickening, mass, or calculi. Post void residual: 0 mL URETERAL JETS: Visualized bilaterally. US/US renal bladder IMPRESSION: 1. Bilateral nonobstructing nephrolithiasis. Otherwise unremarkable kidneys and urinary bladder. Electronically authenticated by: SAUMYA MARSH Date: 03/22/2024 05:57
--- OUTSIDE RECORDS SUMMARY | 2024-03-21 07:22 | XMS_ITS | CCD ---
Author Organization [facility] CrunchbuttonFormerly [facility] Care Team Providers Care Fire Operations Forester Name Role Phone Latricia Garcia Primary Care Physician [phone] Shirley Murrell Attending Unavailable JollyeShirley Referring Unavailable [...] Unavailable Latricia Garcia MD Primary Care Provider [phone] MICHELLE, JON E Referring Unavailable HOY, LATRICIA [...] 3 Unknown (qualifier value), Nausea And Vomiting [facility] (1 source) Naproxen Drug Allergy [facility] Repository Medications Current Medications Medication Drug Class(es) [...] procedure., # 2 cap(s), Refills(s) 0, Pharmacy: [facility] Start Date: 05/12/22 Status: Ordered 0.4 [...] by mouth nightly Active polyethylene glycol 3350 56133 mg powder for oral solution (2 sources) [...] QUAL BCR-ABL1 ASSAY, RESULT Not detected Normal [facility] Comment on above: Result Comment: Ther e [...] reference gene is also amplified for specimen ethanol quality leader and to ensure the integrity of RNA. [...] Transcripts Analytical Sensitivity Minor (e1a2) NCN = 0.90619 Major (e13a2) %IS = 0.0040 Major (e14a2) [...] developed and its performance characteristics determined by [facility]. It has not been cleared or approved by the U.S. Food and Drug Administration. This test was performed in a CLIA-certified laboratory and is intended for clinical purposes. Performed By: [facility] [address] [place] [address] Scale Tank Operator: Sunny Roman MD, PhD [place] Number: [id number] Performed By: #### D QBC2 #### [facility] [address] [facility] [address] DIAGNOSTIC QUAL BCR-ABL1 ASSAY, SOURCE Not Provided Normal [facility] Comment on above: Result Comment: AMEN DED on 03/12/24: Result in error was LAV Whole Blood, verified at 09:43 on 03/01/24. Performed By: #### D QBC2 #### [facility] [address] [facility] [address] CHROMOSOME ANAL. BONE MARROW on 03-11-2024 CHROMOSOME ANAL. BONE MARROW SEE BELOW Normal [facility] Comment on above: Result Comment: Wire Machine Operator mosome Analysis, Bone Marrow See Note Normal [...] reviewed and approved by Akash Smith, PhD, [facility] A portion of this analysis was performed at the following location(s): [facility]1 [facility]1 [facility] INTERPRETIVE INFORMATION: Chromosome Analysis, Bone Marrow This test was developed and its performance characteristics determined by [facility]. It has not been cleared or approved by the US Food and Drug Administration. This test was performed in a CLIA certified laboratory and is intended for clinical purposes. EER Chromosome Analysis Bone Marrow See Note Authorized individuals can access the [facility] Enhanced Report using the following link: [email or web address] Performed By: [facility] [address] [place] [address] Scale Tank Operator: Sunny Roman MD, PhD CLIA Number: [id number] Performed By: #### M MMP, CRBM2, LPBM2 #### [facility] [address] [facility] [address] MYELOID MALIGANCIES MUTATION PANEL BY [employer] 03-08-2024 EER MYELOID MALIGNANCIES PANEL BY NGS See Note Normal [facility] Comment on above: Result Comment: Auth orized individuals can access the [facility] Enhanced Report using the following link: [email or web address] Performed By: [facility] [address] [place] [address] Scale Tank Operator: Sunny Roman MD, PhD CLIA Number: [id number] Performed By: #### M MMP, CRBM2, LPBM2 #### [facility] [address] [facility] [address] MYELOID MALIGNANCIES PANEL INTERP See Note Normal [facility] Comment on above: Result Comment: Myeloid Malignancies Mutation Panel NGS Submitted diagnosis or diagnosis under consideration for variant interpretation: Pancytopenia TIER 1: Variants of Known Clinical Significance in Hematologic Malignancies None found TIER 2: Variants of Unknown Clinical Significance in Hematologic Malignancies 1. NSD1 c.7576C>T, p.[id number] ([id number]) VAF: 49.0% This variant has not been reported in hematologic malignancies, to the best of our knowledge. 2. KMT2A c.5573G>A, p.[id number] ([id number]) VAF: 47.8% This variant has not been reported in hematologic malignancies, to the best of our knowledge. This result has been reviewed and approved by Zulay Abdi M.D. Low coverage regions: Listed below are regions where the average sequencing depth (number of times a particular nucleotide is sequenced) in at least 20% of the ctrdnm-hd-nhbbdjdn is less than our stringent cutoff of [...] NOTCH1; NPM1*; NRAS; NSD1; PHF6; PIGA; PPM1D; RCWS72F; PRPF8; PTPN11; RAD21; RUNX1; SAMD9; SAMD9L; SETBP1; [...] CRBM2, LPBM2 #### [facility] [address] [facility] [address] MYELOID MALIGNANCIES PANEL SPECIMEN Bone Marrow Normal [facility] Comment on above: Performed By: #### M MMP, CRBM2, LPBM2 #### [facility] [address] [facility] [place] [address] MYELOID MALIGNANCY PROPOSED DIAGNOSIS Pancytopenia Normal [facility] Comment on above: Performed By: #### M MMP, CRBM2, LPBM2 #### [facility] [address] [facility] [place] [address] LEUKEMIA/LYMPHOMA PHENO BLOO Don 03-05-2024 LEUKEMIA/LYMPHOMA PHENO BLOOD SEE BELOW Normal [facility] Comment on above: Result Comment: Leuk /Lymph [...] loss of CD16 without any other abnormality) [place]:Lambda Ratio: approx. 2:1 CD4:CD8 Ratio: approx. 8:1 Viability: 58% Markers run: HLA-DR, [place], Lambda, CD2, CD3, CD4, CD5, CD7, CD8, CD10, CD11b, CD13, CD14, CD16, CD19, CD20, CD23, CD33, CD34, CD38, CD45, CD56, CD57, CD64, CD117, CD200 Num of Markers Run: 26 This result has been reviewed and approved by Kostas Miller M.D., Ph.D. 03/05/2024 INTERPRETIVE INFORMATION: Leuk/Lymph Phenotyping, Flow Cytometry This test was developed and its performance characteristics determined by [facility]. It has not been cleared or approved by the US Food and Drug Administration. This test was performed in a CLIA certified laboratory and is intended for clinical purposes. Performed By: [facility] [address] [place] [address] Scale Tank Operator: Sunny Roman MD, PhD CLIA Number: [id number] Performed By: #### C , WS #### [facility] [address] [place] [address] LEUKEMIA/LYMPHOMA PHENO BONE MARROWon 03-03-2024 LEUKEMIA/LYMPHOMA PHENO BONE MARROW SEE BELOW Normal [facility] Comment on above: Result Comment: Leuk /Lymph [...] Viability: 82% Markers run: cKappa, cLambda, HLA-DR, [place], Lambda, CD2, CD3, CD4, CD5, CD7, CD8, CD10, CD11b, CD13, CD14, CD16, CD19, CD20, CD23, CD33, CD34, CD38, CD45, CD56, CD57, CD64, CD117, CD138, CD200 Num of Markers Run: 29 This result has been reviewed and approved by Kostas Miller M.D., Ph.D. 03/03/2024 INTERPRETIVE INFORMATION: Leuk/Lymph Phenotyping, Flow Cytometry This test was developed and its performance characteristics determined by [facility]. It has not been cleared or approved by the US Food and Drug Administration. This test was performed in a CLIA certified laboratory and is intended for clinical purposes. Performed By: [facility] [address] [place] [address] Scale Tank Operator: Sunny Roman MD, PhD CLIA Number: [id number] Performed By: #### M MMP, CRBM2, LPBM2 #### [address] [address] ANION GAPon 03-02-2024 Anion gap [Moles/Vol] 9.0 mmol/L Normal 8.0-16.0 [facility] Comment on above: Result Comment: ANIO N GAP = Sodium -(Chloride + CO2) Performed By: #### C RP, WSR #### [facility] [address] [address] Anion Gapon 03-02-2024 Anion gap [Moles/Vol] 9.0 mmol/L 8.0 - 16.0 meq/L [facility] Comment on above: ANION GAP = Sodium - (Chloride + CO2) Performed at [facility] [address] [place] [address] BASIC METABOL PANELon 2023 Calcium [Mass/Vol] 8.4 mg/dL Low 8.5-10.5 [facility] Comment on above: Performed By: #### C RP, WSR #### [facility] [address] [place] [address] Chloride [Moles/Vol] 100 mmol/L Normal 98-111 [facility] Comment on above: Performed By: #### C RP, WSR #### [facility] [address] [place] [address] CO2 [Moles/Vol] 29 mmol/L Normal 23-33 [facility] Comment on above: Performed By: #### C RP, WSR #### [facility] [address] [place] [address] Creatinine [Mass/Vol] 0.9 mg/dL Normal 0.4-1.2 [facility] Comment on above: Performed By: #### C RP, WSR #### [facility] [address] [place] [address] Glucose [Mass/Vol] 103 mg/dL Normal 70-108 [facility] Comment on above: Performed By: #### C RP, WSR #### [facility] [address] [place] [address] Potassium [Moles/Vol] 3.7 mmol/L Normal 3.5-5.2 [facility] Comment on above: Performed By: #### C RP, WSR #### [facility] [address] [place] [address] Sodium [Moles/Vol] 138 mmol/L Normal 135-145 [facility] Comment on above: Performed By: #### C RP, WSR #### [facility] [address] [place] [address] Urea nitrogen [Mass/Vol] 10 mg/dL Normal 7-22 [facility] Comment on above: Performed By: #### C RP, WSR #### [facility] [address] [place] [address] Basic metabolic 2000 panelon 03-02-2024 Calcium [Mass/Vol] 8.4 mg/dL Low 8.5 - 10. 5 mg/dL [facility] Comment on above: Performed at [facility] [address] [place] [address] Chloride [Moles/Vol] 100 mmol/L 98 - 111 meq/L [facility] CO2 [Moles/Vol] 29 mmol/L 23 - 33 meq/L Bon [facility] Creatinine [Mass/Vol] 0.9 mg/dL 0.4 - 1.2 mg/dL [facility] Glucose [Mass/Vol] 103 mg/dL 70 - 108 mg/dL [facility] Interpretation and review of laboratory results Abnormal [facility] Potassium [Moles/Vol] 3.7 mmol/L 3.5 - 5.2 meq/L [facility] Sodium [Moles/Vol] 138 mmol/L 135 - 145 meq/L [facility] Urea nitrogen [Mass/Vol] 10 mg/dL 7 - 22 mg/dL [facility] CBC WITH DIFFERENTIALon 11-0 ATYPICAL LYMPH OCC. Normal [facility] Comment on above: Performed By: #### Irene ANDRES, SCAN1 #### [place] [address] PLATELET ESTIMATE SL DECREASED Normal Adequate [facility] Comment on above: Performed By: #### Irene ANDRES, SCAN1 #### [place] [address] SMUDGE CELLS Present Normal Absent [facility] Comment on above: Performed By: #### Irene ANDRES, SCAN1 #### [facility] [address] [place] [address] ABS BASOPHILS 0.0 thou/mm3 Normal 0.0-0.1 [facility] Comment on above: Performed By: #### Irene ANDRES, SCAN1 #### [address] [address] ABS EOSINOPHILS 0.0 thou/mm3 Normal 0.0-0.4 [facility] Comment on above: Performed By: #### Irene ANDRES, SCAN1 #### [facility] [address] [place] [address] ABS IMMATURE GRANS (IG) 0.08 thou/mm3 High 0.00-0.07 [facility] Comment on above: Performed By: #### Irene ANDRES, SCAN1 #### [facility] [address] [place] [address] ABS LYMPHOCYTES 0.7 thou/mm3 Low 1.0-4.8 [facility] Comment on above: Performed By: #### C DMITRY, SCAN1 #### [facility] [address] [place] [address] ABS MONOCYTES 0.1 thou/mm3 Low 0.4-1.3 [facility] Comment on above: Performed By: #### Irene ANDRES, SCAN1 #### [facility] [address] [place] [address] ABS NEUTROPHILS 0.9 thou/mm3 Low 1.8-7.7 [facility] Comment on above: Performed By: #### C DMITRY, SCAN1 #### [facility] [address] [place] [address] Basophils/100 WBC (Bld) 0.5 % Normal [facility] Comment on above: Performed By: #### C DMITRY, SCAN1 #### [facility] [address] [place] [address] Eosinophils/100 WBC (Bld) 2.6 % Normal [facility] Comment on above: Performed By: #### Irene ANDRES, SCAN1 #### [facility] [address] [place] [address] Erythrocyte distribution width (RBC) [Ratio] 12.1 % Normal 11.5-14.5 [facility] Comment on above: Performed By: #### Irene ANDRES, SCAN1 #### [facility] [address] [place] [address] Hematocrit (Bld) [Volume fraction] 33.8 % Low 42.0-52.0 [facility] Comment on above: Performed By: #### Irene ANDRES, SCAN1 #### [facility] [address] [place] [address] Hemoglobin (Bld) [Mass/Vol] 11.6 g/dL Low 14.0-18.0 [facility] Comment on above: Performed By: #### C DMITRY, SCAN1 #### [facility] [address] [place] [address] IMMATURE GRANS (IG) 4.2 % Normal [facility] Comment on above: Performed By: #### Irene ANDRES, SCAN1 #### [facility] [address] [address] Lymphocytes/100 WBC (Bld) 37.0 % Normal [facility] Comment on above: Performed By: #### Irene ANDRES, SCAN1 #### [address] [address] MCH (RBC) [Entitic mass] 30.9 pg Normal 26.0-33.0 [facility] Comment on above: Performed By: #### Irene ANDRES, SCAN1 #### [address] [address] MCHC (RBC) [Mass/Vol] 34.3 g/dL Normal 32.2-35.5 [facility] Comment on above: Performed By: #### Irene ANDRES, SCAN1 #### [address] [address] MCV (RBC) [Entitic vol] 90.1 fL Normal 80.0-94.0 [facility] Comment on above: Performed By: #### Irene ANDRES, SCAN1 #### [address] [address] Monocytes/100 WBC (Bld) 7.8 % Normal [facility] Comment on above: Performed By: #### Irene ANDRES, SCAN1 #### [address] [address] Neutrophils/100 WBC (Bld) 47.9 % Normal [facility] Comment on above: Performed By: #### Irene ANDRES, SCAN1 #### [address] [address] NRBC 0 /100 wbc Normal [facility] Comment on above: Performed By: #### Irene ANDRES, SCAN1 #### [address] [address] PLATELET 100 thou/mm3 Low 130-400 [facility] Comment on above: Performed By: #### Irene ANDRES, SCAN1 #### [facility] [address] [place] [address] Platelet mean volume (Bld) [Entitic vol] 11.4 fL Normal 9.4-12.4 [facility] Comment on above: Performed By: #### C DMITRY, SCAN1 #### [facility] [address] [place] [address] RBC 3.75 mill/mm3 Low 4.70-6.10 [facility] Comment on above: Performed By: #### C DMITRY, SCAN1 #### [facility] [address] [place] [address] RDW-SD 40.8 fL Normal 35.0-45.0 [facility] Comment on above: Performed By: #### C DMITRY, SCAN1 #### [facility] [address] [place] [address] WBC 1.9 thou/mm3 Low 4.8-10.8 [facility] Comment on above: Performed By: #### C DMITRY, SCAN1 #### [facility] [address] [place] [address] CBC with Auto Differentialon 03-02-2024 Basophils (Bld) [...] [#/Vol] 3.75 10*6/uL Low [facility] Smudge cells LM Ql (Bld) Present Absent [facility] Comment on above: Performed at [facility] [address] [place] [address] Variant lymphocytes LM Ql (Bld) OCC. % [facility] WBC (Bld) [#/Vol] 1.9 10*3/uL Low [facility] EKG Rhythm Stripon [facility] FRANCES VARNER VIRUS ANTIBODIE Son 03-02-2024 FRANCES VARNER VIRUS ANTIBODIES SEE BELOW Normal [facility] Comment on above: Result Comment: EBV Ab [...] helpful. 11.0 U/mL or greater....Detected Performed By: [facility] [address] [place] [address] Scale Tank Operator: Sunny Roman MD, PhD CLIA Number: [id number] Performed By: #### M MMP, CRBM2, LPBM2 #### [facility] [address] [facility] [address] Frances varner virus (EBV) ant ibody panel Ion 03-02-2024 FRANCES-VARNER VIRUS ANTIBODIES SEE BELOW [facility] Comment on above: EBV Ab to Viral [...] helpful. 11.0 U/mL or greater....Detected Performed By: [facility] [address] [place] [address] Scale Tank Operator: Sunny Roman MD, PhD CLIA Number: [id number] [facility] GFR, ESTIMATEDon 03-02-2024 GFR/1.73 sq M.predicted MDRD (S/P/Bld) [Vol rate/Area] mL/min/{1.73_m2} Normal >60 [facility] Comment on above: Pediatric calculator link https://www.kidney.org/professionals/kdoqi/gfr_calculatorped [...] that affects renal tubular secretion. [place] [address] Result Comment: Danyel atric calculator link https://www.kidney.org/professionals/kdoqi/gfr_calculatorped [...] Performed By: #### C RP, WSR #### [place] [address] No Panel Informationon 03-02 [facility] [facility] SCAN OF BLOOD SMEARon 2023 SCAN OF BLOOD SMEAR see below Normal [facility] Comment on above: Criteria Exceeded; S can of Differential Slide [place] [address] Result Comment: Nichole larkin Exceeded; Scan of Differential Slide Performed Performed By: #### C BCWD, SCAN1 #### [place] [address] BLOOD SMEAR REVIEWon 024 PATHOLOGIST REVIEWED Estefani FUNES Normal [facility] Comment on above: Result Comment: Panc ytopenia with normocytic anemia. No circulating blasts. No platelet clumps. Clinical correlation is recommended. Performed By: #### M MMP, CRBM2, LPBM2 #### [facility] [address] [place] [address] SMEAR REVIEWED BY PATHOLOGIST see below Normal [facility] Comment on above: Result Comment: See Below Performed By: #### M MMP, CRBM2, LPBM2 #### [facility] [address] [facility] [address] CBC WITH DIFFERENTIALon PATHOLOGIST REVIEWED PCF Normal [facility] Comment on above: Performed By: #### C VFLU #### [place] [address] ATYPICAL LYMPH OCC. Normal [facility] Comment on above: Performed By: #### C VFLU #### [facility] [address] [place] [address] ABS BASOPHILS 0.0 thou/mm3 Normal 0.0-0.1 [facility] Comment on above: Performed By: #### C VFLU #### [facility] [address] [place] [address] ABS EOSINOPHILS 0.0 thou/mm3 Normal 0.0-0.4 [facility] Comment on above: Performed By: #### C VFLU #### [address] [place] [address] ABS IMMATURE GRANS (IG) 0.09 thou/mm3 High 0.00-0.07 [facility] Comment on above: Performed By: #### C VFLU #### [address] [place] [address] ABS LYMPHOCYTES 0.5 thou/mm3 Low 1.0-4.8 [facility] Comment on above: Performed By: #### C VFLU #### [address] [place] [address] ABS MONOCYTES 0.1 thou/mm3 Low 0.4-1.3 [facility] Comment on above: Performed By: #### C VFLU #### [facility] [address] [place] [address], [place] [address] ABS NEUTROPHILS 1.1 thou/mm3 Low 1.8-7.7 [facility] Comment on above: Performed By: #### C VFLU #### [facility] [address] [place] [address], [place] [address] Basophils/100 WBC (Bld) 1.1 % Normal [facility] Comment on above: Performed By: #### C VFLU #### [facility] [address] [place] [address], [place] [address] Eosinophils/100 WBC (Bld) 1.7 % Normal [facility] Comment on above: Performed By: #### C VFLU #### [address] [place] [address] Erythrocyte distribution width (RBC) [Ratio] 12.3 % Normal 11.5-14.5 [facility] Comment on above: Performed By: #### C VFLU #### [facility] [address] [place] [address] Hematocrit (Bld) [Volume fraction] 38.2 % Low 42.0-52.0 [facility] Comment on above: Performed By: #### C VFLU #### [facility] [address] [place] [address] Hemoglobin (Bld) [Mass/Vol] 12.9 g/dL Low 14.0-18.0 [facility] Comment on above: Performed By: #### C VFLU #### [address] [address] IMMATURE GRANS (IG) 5.0 % Normal [facility] Comment on above: Performed By: #### C VFLU #### [address] [address] Lymphocytes/100 WBC (Bld) 26.3 % Normal [facility] Comment on above: Performed By: #### C VFLU #### [address] [address] MCH (RBC) [Entitic mass] 30.2 pg Normal 26.0-33.0 [facility] Comment on above: Performed By: #### C VFLU #### [address] [address] MCHC (RBC) [Mass/Vol] 33.8 g/dL Normal 32.2-35.5 [facility] Comment on above: Performed By: #### C VFLU #### [address] [address] MCV (RBC) [Entitic vol] 89.5 fL Normal 80.0-94.0 [facility] Comment on above: Performed By: #### C VFLU #### [address] [address] Monocytes/100 WBC (Bld) 5.6 % Normal [facility] Comment on above: Performed By: #### C VFLU #### [address] [address] Neutrophils/100 WBC (Bld) 60.3 % Normal [facility] Comment on above: Performed By: #### C VFLU #### [address] [address] NRBC 0 /100 wbc Normal [facility] Comment on above: Performed By: #### C VFLU #### [address] [address] PLATELET 86 thou/mm3 Low 130-400 [facility] Comment on above: Performed By: #### C VFLU #### [address] [address] Platelet mean volume (Bld) [Entitic vol] 11.2 fL Normal 9.4-12.4 [facility] Comment on above: Performed By: #### C VFLU #### [address] [address] RBC 4.27 mill/mm3 Low 4.70-6.10 [facility] Comment on above: Performed By: #### C VFLU #### [address] [address] RDW-SD 40.0 fL Normal 35.0-45.0 [facility] Comment on above: Performed By: #### C VFLU #### [address] [address] WBC 1.8 thou/mm3 Low 4.8-10.8 [facility] Comment on above: Performed By: #### C VFLU #### [address] [address] CBC with Auto Differentialon 03-01-2024 Basophils (Bld) [...] [facility] Comment on above: Performed at [facility] [address] [place] [address] Pathologist Review PCF [facility] [...] ox monitoring devices by a registered nurse. Cmbq-ew-cwjz time with patient 10 minutes. PROCEDURE: Signed [...] utilizing coaxial technique and handed to the pathology laboratory aide for processing and evaluation. Post procedure CT [...] Kostas Mendoza MD 03/01/24 Final result Normal [facility] CT Guidance for biopsy of Cosmo ne marrowon 03-01-[address]24 [address] post successf ul CT guided bone marrow biopsy. This report has been created using voice recognition software. It may contain minor errors which are inherent in voice recognition technology. Electronically signed by Dr Kostas Mendoza [facility] CT-GUIDED BONE MARRO W BIOPSY: CLINICAL INFORMATION: [...] ox monitoring devices by a registered nurse. Aetc-nx-liks time with patient 10 minutes. PROCEDURE: Signed [...] utilizing coaxial technique and handed to the pathology laboratory aide for processing and evaluation. Post procedure CT images revealed no significant post biopsy hemorrhage... At the end of the procedure, hemostasis was obtained with manual pressure The patient tolerated the procedure well. ALL CT SCANS AT THIS FACILITY use dose modulation, iterative reconstruction, and/or weight-based dosing when appropriate to reduce radiation dose to as low as reasonably achievable. [facility] Kostas Morelos MD - 03/01/2024 CT-GUIDED BONE [...] ox monitoring devices by a registered nurse. Nxqn-nk-pfpw time with patient 10 minutes. PROCEDURE: Signed [...] utilizing coaxial technique and handed to the pathology laboratory aide for processing and evaluation. Post procedure CT [...] technology. Electronically signed by Dr Kostas Mendoza [facility] Study observation (narrative) [employer] CT Guidance for biopsy of Cosmo ne marrowOrdered By: Kostas Mendoza on 03-01-2024 [employer] Phone: EKG 12 LeadOrdered By: Julito Morris on 03-01-2024 Atrial Rate 87 BPM [employer] Phone: P Olancha 73 degrees [employer] Phone: P-R Interval 140 ms [employer] Phone: Q-T Interval 378 ms [employer] Phone: QRS Duration 104 ms [employer] Phone: QTc Calculation (Bazett) 454 ms [employer] Phone: R Olancha 72 degrees [employer] Phone: T Olancha 42 degrees [employer] Phone: Ventricular Rate 87 BPM [employer] Phone: [employer] Phone: EKG 12 Leadon 03-01-2024 Normal sinus [...] NAYELI MORRIS ([id number]) on 03/01/2024 1:00:05 PM [facility] EKG Rhythm Stripon 4 75 PACEART [facility] 81 PACEART [facility] hr 86 PACEART [facility] No Panel Informationon 03-01 [facility] Path Review, Smearon 024 REVIEWED BY Estefani FUNES [facility] Comment on above: Pancytopenia with no rmocytic anemia. No circulating blasts. No platelet clumps. Clinical correlation is recommended[place] [address] Smear Review see below [facility] Comment on above: See Below SCAN OF BLOOD SMEARon 2023 SCAN OF BLOOD SMEAR see below Normal [facility] Comment on above: Criteria Exceeded; S can of Differential Slide Performed Performed at [facility] [place] [address] Result Comment: Crit eria Exceeded; Scan of Differential Slide Performed Performed By: #### C VFLU #### [place] [address] SURGICALon 03-01-2024 SURGICAL [facility] JAYME Reji ETHAN [id number] Assoc. Page 1 of [address] [place] [address] PROC: 03/01/2024 [facility] RECV: 03/01/2024 [facility] RPTD: 03/04/2024 [place] [address] LOC: 4A ACCT: [id number] SEX: M : 1990 AGE: 33 Y [...] x 2.0 x 0.7 cm in aggregate. Slice Plug Cutter Operator blood clot is submitted in one cassette [...] currently pending. Please see separate reference reports. [id number] x 2 LIZY BRISCOE M.D., F.C.A.P. [facility] Printed on: 03/04/[address] [place] [address] Original print date: 03/04/2024 Normal [facility] Scan of Blood Smearon 2023 [facility] ANION GAPon 02-29-2024 Anion gap [Moles/Vol] 13.0 mmol/L Normal 8.0-16.0 [facility] Comment on above: Result Comment: ANIO N GAP = Sodium -(Chloride + CO2) Performed By: #### C VFLU #### [address] [address] Anion Gapon 02-29-2024 Anion gap [Moles/Vol] 13.0 mmol/L 8.0 - 16.0 meq/L [facility] Comment on above: ANION GAP = Sodium - (Chloride + CO2) Performed at [facility] [address] [place] [address] BASIC METABOL PANELon 2023 Calcium [Mass/Vol] 8.3 mg/dL Low 8.5-10.5 [facility] Comment on above: Performed By: #### C VFLU #### [facility] [address] [place] [address] Chloride [Moles/Vol] 102 mmol/L Normal 98-111 [facility] Comment on above: Performed By: #### C VFLU #### [facility] [address] [place] [address] CO2 [Moles/Vol] 24 mmol/L Normal 23-33 [facility] Comment on above: Performed By: #### C VFLU #### [facility] [address] [place] [address] Creatinine [Mass/Vol] 1.1 mg/dL Normal 0.4-1.2 [facility] Comment on above: Performed By: #### C VFLU #### [facility] [address] [place] [address] Glucose [Mass/Vol] 96 mg/dL Normal 70-108 [facility] Comment on above: Performed By: #### C VFLU #### [facility] [address] [place] [address] Potassium [Moles/Vol] 3.7 mmol/L Normal 3.5-5.2 [facility] Comment on above: Performed By: #### C VFLU #### [address] [address] Sodium [Moles/Vol] 139 mmol/L Normal 135-145 [facility] Comment on above: Performed By: #### C VFLU #### [facility] [address] [place] [address] Urea nitrogen [Mass/Vol] 13 mg/dL Normal 7-22 [facility] Comment on above: Performed By: #### C VFLU #### [facility] [employer] [address] [address] Basic metabolic 2000 panelon 02-29-2024 Calcium [Mass/Vol] 8.3 mg/dL Low 8.5 - 10. 5 mg/dL [facility] Comment on above: Performed at [facility] [address] [place] [address] Chloride [Moles/Vol] 102 mmol/L 98 - 111 meq/L [facility] CO2 [Moles/Vol] 24 mmol/L 23 - 33 meq/L [facility] Creatinine [Mass/Vol] 1.1 mg/dL 0.4 - 1.2 mg/dL [facility] Glucose [Mass/Vol] 96 mg/dL 70 - 108 mg/dL [facility] Interpretation and review of laboratory results Abnormal [facility] Potassium [Moles/Vol] 3.7 mmol/L 3.5 - 5.2 meq/L [facility] Sodium [Moles/Vol] 139 mmol/L 135 - 145 meq/L [facility] Urea nitrogen [Mass/Vol] 13 mg/dL 7 - 22 mg/dL [facility] C-REACTIVE PROTEINon 024 C-REACTIVE PROTEIN 4.49 mg/dl High 0.00-1.00 [facility] Comment on above: Performed By: #### C RP, WSR #### [place] [place] [address] C-Reactive Proteinon 024 CRP [Mass/Vol] 4.49 mg/dl High 0.00 - 1.00 mg/dl [facility] Comment on above: Performed at [facility] [address] [place] [address] CALCIUM (IONIZED) * WBon CALCIUM (IONIZED) * WB 1.11 mmol/L Low 1.12-1.32 [facility] Comment on above: Performed By: #### C VFLU #### [place] [address] CBC WITH DIFFERENTIALon 01-31 PLATELET ESTIMATE DECREASED Normal Adequate [facility] Comment on above: Performed By: #### C VFLU #### [place] [address] SMUDGE CELLS Present Normal Absent [facility] Comment on above: Performed By: #### C VFLU #### [facility] [address] [address] ABS BASOPHILS 0.0 thou/mm3 Normal 0.0-0.1 [facility] Comment on above: Performed By: #### C VFLU #### [facility] [address] [place] [address] ABS EOSINOPHILS 0.0 thou/mm3 Normal 0.0-0.4 [facility] Comment on above: Performed By: #### C VFLU #### [address] [address] ABS IMMATURE GRANS (IG) 0.05 thou/mm3 Normal 0.00-0.07 [facility] Comment on above: Performed By: #### C VFLU #### [facility] [address] [place] [address] ABS LYMPHOCYTES 0.4 thou/mm3 Low 1.0-4.8 [facility] Comment on above: Performed By: #### C VFLU #### [facility] [address] [place] [address] ABS MONOCYTES 0.1 thou/mm3 Low 0.4-1.3 [facility] Comment on above: Performed By: #### C VFLU #### [facility] [address] [place] [address] ABS NEUTROPHILS 0.9 thou/mm3 Low 1.8-7.7 [facility] Comment on above: Performed By: #### C VFLU #### [address] [address] Basophils/100 WBC (Bld) 1.4 % Normal [facility] Comment on above: Performed By: #### C VFLU #### [address] [address] Eosinophils/100 WBC (Bld) 0.7 % Normal [facility] Comment on above: Performed By: #### C VFLU #### [address] [address] Erythrocyte distribution width (RBC) [Ratio] 12.0 % Normal 11.5-14.5 [facility] Comment on above: Performed By: #### C VFLU #### [address] [address] Hematocrit (Bld) [Volume fraction] 36.0 % Low 42.0-52.0 [facility] Comment on above: Performed By: #### C VFLU #### [address] [address] Hemoglobin (Bld) [Mass/Vol] 12.2 g/dL Low 14.0-18.0 [facility] Comment on above: Performed By: #### C VFLU #### [address] [address] IMMATURE GRANS (IG) 3.4 % Normal [facility] Comment on above: Performed By: #### C VFLU #### [address] [address] Lymphocytes/100 WBC (Bld) 25.0 % Normal [facility] Comment on above: Performed By: #### C VFLU #### [address] [address] MCH (RBC) [Entitic mass] 30.7 pg Normal 26.0-33.0 [facility] Comment on above: Performed By: #### C VFLU #### [address] [address] MCHC (RBC) [Mass/Vol] 33.9 g/dL Normal 32.2-35.5 [facility] Comment on above: Performed By: #### C VFLU #### [address] [address] MCV (RBC) [Entitic vol] 90.5 fL Normal 80.0-94.0 [facility] Comment on above: Performed By: #### C VFLU #### [address] [address] Monocytes/100 WBC (Bld) 7.4 % Normal [facility] Comment on above: Performed By: #### C VFLU #### [address] [address] Neutrophils/100 WBC (Bld) 62.1 % Normal [facility] Comment on above: Performed By: #### C VFLU #### [address] [address] NRBC 0 /100 wbc Normal [facility] Comment on above: Performed By: #### C VFLU #### [address] [address] PLATELET 89 thou/mm3 Low 130-400 [facility] Comment on above: Performed By: #### C VFLU #### [address] [address] Platelet mean volume (Bld) [Entitic vol] 10.7 fL Normal 9.4-12.4 [facility] Comment on above: Performed By: #### C VFLU #### [facility] [address] [place] [address] RBC 3.98 mill/mm3 Low 4.70-6.10 [facility] Comment on above: Performed By: #### C VFLU #### [facility] [address] [place] [address] RDW-SD 40.1 fL Normal 35.0-45.0 [facility] Comment on above: Performed By: #### C VFLU #### [facility] [address] [place] [address] WBC 1.5 thou/mm3 Low 4.8-10.8 [facility] Comment on above: Performed By: #### C VFLU #### [facility] [address] [place] [address] CBC with Auto Differentialon 02-29-2024 Basophils (Bld) [...] [facility] Comment on above: Performed at [facility] [address] [place] [address] WBC (Bld) [#/Vol] 1.5 10*3/uL Low [facility] CRP [Mass/Vol]on 02-29-2024 Interpretation and review of laboratory results Abnormal [facility] Calcium, Ionizedon Calcium.ionized ISE (Bld) [Moles/Vol] 1.11 mmol/L Low 1.12 - 1.32 mmol/L [facility] Comment on above: Performed at [facility] [address] [place] [address] EKG 12-LEADon 02-29-2024 EKG 12-LEAD 87 87 140 104 378 454 73 72 42 Normal sinus rhythm Nonspecific T wave abnormality Abnormal ECG When compared with ECG of 28-FEB-2024 20:02, No significant change was found Confirmed by NAYELI MORRIS ([id number]) on 03/01/2024 1:00:05 PM [email or web address] RetrieveTestByDateTime ?LbifjghSK=[id number]&D ate=29-02-2024&Time=20 %3a57%3a59%3a00&TestTy pe=ECG&Site=3&OutputTy pe=PDF&Ext=PDF Normal [facility] ESR Westergren method (Bld) [Velocity]on 02-29-2024 ESR (Bld) [Velocity] 10 mm/h [facility] Comment on above: Performed at [facility] [address] [place] [address] [facility] Electrophoresis Protein, Ser umon 02-29-2024 Protein Electrophoresis, Serum SEE BELOW [facility] Comment on above: Total Protein, Serum 6.5 [...] See Note Authorized individuals can access the [employer] Enhanced Report using the following link: [email or web address] Performed By: [facility] [address] [place] [address] Scale Tank Operator: Sunny Roman MD, PhD CLIA Number: [id number] [facility] FERRITINon 02-29-2024 Ferritin [Mass/Vol] 1435 ng/mL High 22-322 [facility] Comment on above: Performed By: #### C RP, WSR #### [facility] [address] [place] [address] Ferritinon 02-29-2024 Ferritin [place] [Mass/Vol] 1435 ng/mL High 22 - 322 ng/mL [facility] Comment on above: Performed at [facility] [employer] [facility] [address] [place] [address] GFR, ESTIMATEDon 02-29-2024 GFR/1.73 sq M.predicted MDRD (S/P/Bld) [Vol rate/Area] mL/min/{1.73_m2} Normal >60 Bon [facility] Comment on above: Pediatric calculator link [...] that affects renal tubular secretion. Performed at [facility] [employer] [address] [address] Result Comment: Pedi atric calculator link [email or web address]/[email or web address] [...] secretion. Performed By: #### C VFLU #### [facility] [address] [place] [address] HEPATIC FUNCTION PANELon Albumin [Mass/Vol] 3.3 g/dL Low 3.5-5.1 [facility] Comment on above: Performed By: #### C RP, WSR #### [facility] [address] [place] [address] ALP [Catalytic activity/Vol] 89 U/L Normal 38-126 [facility] Comment on above: Performed By: #### C RP, WSR #### [facility] [address] [place] [address] ALT [Catalytic activity/Vol] 49 U/L Normal 11-66 [facility] Comment on above: Performed By: #### C RP, WSR #### [facility] [address] [place] [address] AST [Catalytic activity/Vol] 61 U/L High 5-40 [facility] Comment on above: Performed By: #### C RP, WSR #### [facility] [address] [place] [address] Bilirubin [Mass/Vol] 0.7 mg/dL Normal 0.3-1.2 [facility] Comment on above: Performed By: #### C RP, WSR #### [facility] [address] [place] [address] Bilirubin.direct [Mass/Vol] 0.3 mg/dL Normal 0.1-13.8 [facility] Comment on above: Performed By: #### C RP, WSR #### [facility] [address] [place] [address] Protein [Mass/Vol] 5.8 g/dL Low 6.1-8.0 [facility] Comment on above: Performed By: #### C RP, WSR #### [facility] [address] [place] [address] HIV 1+2 Ab+HIV1 p24 Ag IA Ql on 02-29-2024 [facility] HIV AG/ABon 02-29-2024 HIV AG/AB SEE BELOW Normal [facility] Comment on above: Result Comment: HIV Ag/Ab NONREACTIVE NR No laboratory evidence of HIV infection. If acute HIV infection is suspected, consider testing for HIV-1 RNA. Performed at [facility], [address] [place] [address] . Performed By: #### C RP, WSR #### [facility] [address] [place] [address] HIV Screenon 02-29-2024 HIV 1+2 Ab+HIV1 p24 Ag IA Ql SEE BELOW [facility] Comment on above: HIV Ag/Ab NONREACTIV E NR No laboratory evidence of HIV infection. If acute HIV infection is suspected, consider testing for HIV-1 RNA. Performed at [facility], [address] [place] [address] . Hepatic function 2000 panelo n 02-29-2024 Albumin BCG dye [Mass/Vol] 3.3 g/dL Low 3.5 - 5.1 g/dL [facility] ALP [Catalytic activity/Vol] 89 U/L 38 - 126 U/L [facility] ALT No additional P-5'-P [Catalytic activity/Vol] 49 U/L 11 - 66 U/L [facility] AST [Catalytic activity/Vol] 61 U/L High 5 - 40 U/L [facility] Bilirubin [Mass/Vol] 0.7 mg/dL 0.3 - 1.2 mg/dL [facility] Bilirubin.conjugate d [Mass/Vol] 0.3 mg/dL 0.1 - 13.8 mg/dL [facility] Protein [Mass/Vol] 5.8 g/dL Low 6.1 - 8.0 g/dL [facility] Comment on above: Performed at [facility] [address] [place] [address] IRONon 02-29-2024 Iron [Mass/Vol] 31 ug/dL Low 65-195 [facility] Comment on above: Performed By: #### Irene GUPTA, WSR #### [facility] [address] [place] [address] IRON BINDING CAPACITYon 01-31 IRON BINDING CAPACITY 199 ug/dL Normal 171-450 [facility] Comment on above: Performed By: #### Irene GUPTA, WSR #### [facility] [address] [place] [address] IRON SATURATIONon 02-29-2024 Iron saturation [Mass fraction] 16 % Low 20 - 50 % [facility] Comment on above: Performed at [facility] [address] [place] [address] IRON SATURATION 16 % Low 20-50 [facility] Comment on above: Performed By: #### Irene GUPTA, WSR #### [facility] [address] [place] [address] Ironon 02-29-2024 Iron [Mass/Vol] 31 ug/dL Low 65 - 195 ug/dL [facility] Comment on above: Performed at [facility] [address] [place] [address] Iron binding capacityon 01-31 Iron binding capacity [Mass/Vol] 199 ug/dL 171 - 450 ug/dL [facility] Comment on above: Performed at [facility] [address] [place] [address] MR Brain WO and W contrast I Von 02-29-2024 No acute intracrania l findings. This document has been electronically signed by: Jadon Bhatti MD on 02/29/2024 02:17 AM [facility] MRI Brain W/WO Contrast COMPARISON: None FINDINGS: No evidence of acute infarction. No acute intracranial hemorrhage. No mass-effect or midline shift. No abnormal enhancement. No hydrocephalus. Clear paranasal sinuses. Clear mastoid air cells. Unremarkable orbits. [facility] Jadon Bhatti MD - 02/29/2024 MRI Brain W/WO Contrast COMPARISON: None FINDINGS: No evidence of acute infarction. No acute intracranial hemorrhage. No mass-effect or midline shift. No abnormal enhancement. No hydrocephalus. Clear paranasal sinuses. Clear mastoid air cells. Unremarkable orbits. IMPRESSION: No acute intracranial findings. This document has been electronically signed by: Jadon Bhatti MD on 02/29/2024 02:17 AM [facility] MR Brain WO and W contrast I VOrdered By: Jadon Bhatti on 02-29-2024 [facility] Work Phone: MRI BRAIN W WO CONTRASTon [...] Jadon Bhatti MD 02/29/24 Final result Normal [facility] No Panel Informationon 02-28 Interpretation and review of laboratory results Abnormal [facility] Interpretation and review of laboratory results Abnormal [facility] PROTEIN ELECTRO., SERUMon PROTEIN ELECTRO., SERUM SEE BELOW Normal [facility] Comment on above: Result Comment: Tota l [...] See Note Authorized individuals can access the [employer] Enhanced Report using the following link: [email or web address] Performed By: [facility] [address] [place] [address] Scale Tank Operator: Sunny Roman MD, PhD CLIA Number: [id number] Performed By: #### C RP, WSR #### [facility] [address] [place] [address] SCAN OF BLOOD SMEARon 2023 SCAN OF BLOOD SMEAR see below Normal [facility] Comment on above: Criteria Exceeded; S can of Differential Slide Performed Performed at [facility] [address] [place] [address] Result Comment: Crit eria Exceeded; Scan of Differential Slide Performed Performed By: #### C RP, WSR #### [facility] [address] [place] [address] SED RATEon 02-29-2024 SED RATE 10 mm/hr Normal 0-10 [facility] Comment on above: Performed By: #### C RP, WSR #### [facility] [address] [place], [place] [address] ANION GAPon 02-28-2024 Anion gap [Moles/Vol] 14.0 mmol/L Normal 8.0-16.0 [facility] Comment on above: Result Comment: ANIO N GAP = Sodium -(Chloride + CO2) Performed By: #### M MIC CRBM2, LPBM2 #### [facility] [address] [facility] [place] [address] APTTon 02-28-2024 aPTT Coag (Bld) [Time] 24.6 s Normal 22.0-38.0 [facility] Comment on above: Result Comment: Ther apeutic Heparin Reference Range= 60-95 seconds (corresponds to 0.3 to 0.7 u/mL Anti-Xa factor activity) Performed By: #### M MIC, OSMANYBM2, LPBM2 #### [facility] [address] [facility] [place] [address] Anion Gapon 02-28-2024 Anion gap [Moles/Vol] 14.0 mmol/L 8.0 - 16.0 meq/L [facility] Comment on above: ANION GAP = Sodium - (Chloride + CO2) Performed at [facility] [address] [place] [address] CBC WITH DIFFERENTIALon 01-31 ABS BASOPHILS 0.0 thou/mm3 Normal 0.0-0.1 [facility] Comment on above: Performed By: #### M MIC, CRBM2, LPBM2 #### [facility] [address] [facility] [place] [address] ABS EOSINOPHILS 0.0 thou/mm3 Normal 0.0-0.4 [facility] Comment on above: Performed By: #### M MMP, CRBM2, LPBM2 #### [facility] [address] [facility] [place] [address] ABS IMMATURE GRANS (IG) 0.03 thou/mm3 Normal 0.00-0.07 [facility] Comment on above: Performed By: #### M MIC, CRBM2, LPBM2 #### [facility] [address] [place] [address] ABS LYMPHOCYTES 0.4 thou/mm3 Low 1.0-4.8 [facility] Comment on above: Performed By: #### M MMP, CRBM2, LPBM2 #### [facility] [address] [facility] [place] [address] ABS MONOCYTES 0.2 thou/mm3 Low 0.4-1.3 [facility] Comment on above: Performed By: #### M MMP, CRBM2, LPBM2 #### [facility] [address] [facility] [address] ABS NEUTROPHILS 1.6 thou/mm3 Low 1.8-7.7 [facility] Comment on above: Performed By: #### M MMP, CRBM2, LPBM2 #### [facility] [address] [facility] [address] Basophils/100 WBC (Bld) 1.7 % Normal [facility] Comment on above: Performed By: #### M MMP, CRBM2, LPBM2 #### [facility] [address] [facility] [address] Eosinophils/100 WBC (Bld) 0.9 % Normal [facility] Comment on above: Performed By: #### M MMP, CRBM2, LPBM2 #### [facility] [address] [facility] [address] Erythrocyte distribution width (RBC) [Ratio] 12.2 % Normal 11.5-14.5 [facility] Comment on above: Performed By: #### M MMP, CRBM2, LPBM2 #### [facility] [address] [facility] [address] Hematocrit (Bld) [Volume fraction] 39.2 % Low 42.0-52.0 [facility] Comment on above: Performed By: #### M MMP, CRBM2, LPBM2 #### [facility] [address] [facility] [address] Hemoglobin (Bld) [Mass/Vol] 13.1 g/dL Low 14.0-18.0 [facility] Comment on above: Performed By: #### M MMP, CRBM2, LPBM2 #### [facility] [address] [facility] [address] IMMATURE GRANS (IG) 1.3 % Normal [facility] Comment on above: Performed By: #### M MMP, CRBM2, LPBM2 #### [facility] [address] [facility] [address] Lymphocytes/100 WBC (Bld) 17.7 % Normal [facility] Comment on above: Performed By: #### M MMP, CRBM2, LPBM2 #### [facility] [address] [facility] [place] [address] MCH (RBC) [Entitic mass] 30.2 pg Normal 26.0-33.0 [facility] Comment on above: Performed By: #### M MMP, CRBM2, LPBM2 #### [facility] [address] [facility] [place] [address] MCHC (RBC) [Mass/Vol] 33.4 g/dL Normal 32.2-35.5 [facility] Comment on above: Performed By: #### M MMP, CRBM2, LPBM2 #### [facility] [address] [facility] [place] [address] MCV (RBC) [Entitic vol] 90.3 fL Normal 80.0-94.0 [facility] Comment on above: Performed By: #### M MMP, CRBM2, LPBM2 #### [facility] [address] [facility] [address] Monocytes/100 WBC (Bld) 8.2 % Normal [facility] Comment on above: Performed By: #### M MMP, CRBM2, LPBM2 #### [facility] [address] [facility] [place] [address] Neutrophils/100 WBC (Bld) 70.2 % Normal [facility] Comment on above: Performed By: #### M MMP, CRBM2, LPBM2 #### [facility] [address] [facility] [place] [address] NRBC 0 /100 wbc Normal [facility] Comment on above: Performed By: #### M MMP, CRBM2, LPBM2 #### [facility] [address] [facility] [place] [address] PLATELET 107 thou/mm3 Low 130-400 [facility] Comment on above: Performed By: #### M MMP, CRBM2, LPBM2 #### [facility] [address] [facility] [place] [address] Platelet mean volume (Bld) [Entitic vol] 10.7 fL Normal 9.4-12.4 [facility] Comment on above: Performed By: #### M MMP, CRBM2, LPBM2 #### [facility] [address] [facility] [place] [address] RBC 4.34 mill/mm3 Low 4.70-6.10 [facility] Comment on above: Performed By: #### M MMP, CRBM2, LPBM2 #### [facility] [address] [place] [address] RDW-SD 40.4 fL Normal 35.0-45.0 [facility] Comment on above: Performed By: #### M MMP, CRBM2, LPBM2 #### [facility] [address] [place] [address] WBC 2.3 thou/mm3 Low 4.8-10.8 [facility] Comment on above: Performed By: #### M MMP, CRBM2, LPBM2 #### [facility] [address] [place] [address] CBC with Auto Differentialon 02-28-2024 Basophils (Bld) [...] [facility] Comment on above: Performed at [facility] [address] [place] [address] Platelets (Bld) [#/Vol] 107 10*3/uL Low [facility] RBC (Bld) [#/Vol] 4.34 10*6/uL Low [facility] WBC (Bld) [#/Vol] 2.3 10*3/uL Low [facility] COMP. METABOLIC PANELon 01-31 Albumin [Mass/Vol] 3.6 g/dL Normal 3.5-5.1 [facility] Comment on above: Performed By: #### M MMP, CRBM2, LPBM2 #### [facility] [address] [place] [address] ALP [Catalytic activity/Vol] 85 U/L Normal 38-126 [facility] Comment on above: Performed By: #### M MMP, CRBM2, LPBM2 #### [facility] [address] [place] [address] ALT [Catalytic activity/Vol] 39 U/L Normal 11-66 [facility] Comment on above: Performed By: #### M MMP, CRBM2, LPBM2 #### [facility] [address] [place] [address] AST [Catalytic activity/Vol] 45 U/L High 5-40 [facility] Comment on above: Performed By: #### M MMP, CRBM2, LPBM2 #### [facility] [address] [place] [address] Bilirubin [Mass/Vol] 0.8 mg/dL Normal 0.3-1.2 [facility] Comment on above: Performed By: #### M MMP, CRBM2, LPBM2 #### [facility] [address] [place] [address] Calcium [Mass/Vol] 8.5 mg/dL Normal 8.5-10.5 [facility] Comment on above: Performed By: #### M MMP, CRBM2, LPBM2 #### [facility] [address] [place] [address] Chloride [Moles/Vol] 101 mmol/L Normal 98-111 [facility] Comment on above: Performed By: #### M MMP, CRBM2, LPBM2 #### [facility] [address] [place] [address] CO2 [Moles/Vol] 25 mmol/L Normal 23-33 [facility] Comment on above: Performed By: #### M MMP, CRBM2, LPBM2 #### [facility] [address] [place] [address] Creatinine [Mass/Vol] 1.2 mg/dL Normal 0.4-1.2 [facility] Comment on above: Performed By: #### M MMP, CRBM2, LPBM2 #### [facility] [address] [place] [address] Glucose [Mass/Vol] 94 mg/dL Normal 70-108 [facility] Comment on above: Performed By: #### M MMP, CRBM2, LPBM2 #### [facility] [address] [facility] [place] [address] POTASSIUM WITH REFLEX MG 4.1 meq/L Normal 3.5-5.2 [facility] Comment on above: Performed By: #### M MMP, CRBM2, LPBM2 #### [facility] [address] [facility] [address] Protein [Mass/Vol] 6.2 g/dL Normal 6.1-8.0 [facility] Comment on above: Performed By: #### M MMP, CRBM2, LPBM2 #### [facility] [address] [facility] [address] Sodium [Moles/Vol] 140 mmol/L Normal 135-145 [facility] Comment on above: Performed By: #### M MMP, CRBM2, LPBM2 #### [facility] [address] [facility] [place] [address] Urea nitrogen [Mass/Vol] 15 mg/dL Normal 7-22 [facility] Comment on above: Performed By: #### M MMP, CRBM2, LPBM2 #### [facility] [address] [facility] [place] [address] Comprehensive metabolic 2000 panelon 02-28-2024 Albumin BCG dye [Mass/Vol] 3.6 g/dL 3.5 - 5.1 g/dL [facility] ALP [Catalytic activity/Vol] 85 U/L 38 - 126 U/L [facility] ALT No additional P-5'-P [Catalytic activity/Vol] 39 U/L 11 - 66 U/L [facility] Comment on above: Performed at [facility] [address] [place] [address] AST [Catalytic activity/Vol] 45 U/L High 5 - 40 U/L [facility] Bilirubin [Mass/Vol] 0.8 mg/dL 0.3 - 1.2 mg/dL [facility] Calcium [Mass/Vol] 8.5 mg/dL 8.5 - 10. 5 mg/dL [facility] Chloride [Moles/Vol] 101 mmol/L 98 - 111 meq/L [facility] CO2 [Moles/Vol] 25 mmol/L 23 - 33 meq/L [facility] Creatinine [Mass/Vol] 1.2 mg/dL 0.4 - 1.2 mg/dL [facility] Glucose [Mass/Vol] 94 mg/dL 70 - 108 mg/dL [facility] Interpretation and review of laboratory results Abnormal [facility] Potassium [Moles/Vol] 4.1 mmol/L 3.5 - 5.2 meq/L [facility] Protein [Mass/Vol] 6.2 g/dL 6.1 - 8.0 g/dL [facility] Sodium [Moles/Vol] 140 mmol/L 135 - 145 meq/L [facility] Urea nitrogen [Mass/Vol] 15 mg/dL 7 - 22 mg/dL [facility] EKG 12 Leadon 02-28-2024 Atrial Rate [address] [facility] [place] 69 degrees [facility] P-R Interval 142 ms [facility] Q-T Interval 360 ms [facility] QRS Duration 100 ms [facility] QTc Calculation (Bazett) 442 ms [facility] R [place] [address] [facility] [place] 25 degrees [facility] Ventricular Rate 91 BPM [facility] Normal sinus rhythm Incomplete right bundle branch block Nonspecific T wave abnormality Abnormal ECG When compared with ECG of 28-FEB-2024 16:05, No significant change was found Confirmed by Arben Mercado ([id number]) on 02/28/2024 8:19:15 PM [facility] STR MUSE Unknown, Provider, M D - 02/28/2024 Normal sinus rhythm Incomplete right bundle branch block Nonspecific T wave abnormality Abnormal ECG When compared with ECG of 28-FEB-2024 16:05, No significant change was found Confirmed by Arben Mercado ([id number]) on 02/28/2024 8:19:[address] [facility] Normal sinus rhythm Incomplete right bundle branch block Nonspecific ST and T wave abnormality Abnormal ECG No previous ECGs available Clinical correlation is indicated Confirmed by Arben Mercado ([id number]) on 02/28/2024 7:52:29 PM [facility] STR MUSE Unknown, Provider, M D - 02/28/2024 Normal sinus rhythm Incomplete right bundle branch block Nonspecific ST and T wave abnormality Abnormal ECG No previous ECGs available Clinical correlation is indicated Confirmed by Arben Mercado ([id number]) on 02/28/2024 7:52:29 PM [employer] EKG 12 LeadOrdered By: Provi kenya Unknown on 02-28-2024 Atrial Rate 78 BPM [employer] Work Phone: P [place] 56 degrees [employer] Work Phone: P-R Interval 154 ms [employer] Phone: Q-T Interval 386 ms [employer] Phone: QRS Duration 102 ms [employer] Work Phone: QTc Calculation (Bazett) 440 ms [employer] Work Phone: R [place] 63 degrees [employer] Work Phone: T [place] 19 degrees [employer] Phone: Ventricular Rate 78 BPM [facility] Work Phone: [employer] Work Phone: EKG 12-LEADon 02-28-2024 EKG 12-LEAD 91 91 142 100 [phone] 25 Normal sinus rhythm Incomplete right bundle branch block Nonspecific T wave abnormality Abnormal ECG When compared with ECG of 28-FEB-2024 16:05, No significant change was found Confirmed by Arben Mercado ([id number]) on 02/28/2024 8:19:15 PM [email or web address] RetrieveTestByDateTime ?[id number]&D ate=28-02-2024&Time=20 %3a02%3a02%3a00&TestTy pe=ECG&Site=3&OutputTy pe=PDF&Ext=PDF Normal [facility] EKG 12-LEAD 78 78 154 [phone] 63 19 Normal sinus rhythm Incomplete right bundle branch block Nonspecific ST and T wave abnormality Abnormal ECG No previous ECGs available Clinical correlation is indicated Confirmed by Arben Mercado ([id number]) on 02/28/2024 7:52:29 PM [email or web address] RetrieveTestByDateTime ?[id number]&D ate=28-02-2024&Time=16 %3a05%3a49%3a00&TestTy pe=ECG&Site=3&OutputTy pe=PDF&Ext=PDF Normal [facility] EKG Rhythm Stripon PACEART [facility] GFR, ESTIMATEDon 02-28-2024 GFR/1.73 sq M.predicted MDRD (S/P/Bld) [Vol rate/Area] 83 mL/min/{1.73_m2} Normal >60 [facility] Comment on above: Pediatric calculator link https://www.kidney.org/professionals/kdoqi/gfr_calculatorped [...] that affects renal tubular secretion. Performed at [facility] [address] [place] [address] Result Comment: Pedi atric calculator link https://www.kidney.org/professionals/kdoqi/gfr_calculatorped [...] M MMP, CRBM2, LPBM2 #### [facility] [address] [place] [address] INR Coag (PPP) [Relative kurt e]on 02-28-2024 [facility] Influenza virus A and B RNA and SARS-CoV-2 (COVID-19) N gene panel MARIKA+probe (Resp)on 02-28-2024 FLUAV RNA MARIKA+probe Ql (Resp) Not detected NOT DETECTED [facility] FLUBV RNA MARIKA+probe Ql (Resp) Not detected NOT DETECTED [facility] Comment on above: Performed at [facility] [address] [place] [address] SARS-CoV-2 (COVID-19) RNA MARIKA+probe Ql (Resp) Not detected NOT DETECTED [facility] Comment on above: Not Detected results do [...] B in nasopharyngeal and nasal swab specimens. [facility] LDon 02-28-2024 LD 532 U/L High 100-190 [facility] Comment on above: Performed By: #### M MMP, CRBM2, LPBM2 #### [facility] [address] [facility] [address] Lactate Dehydrogenaseon 01-31 LDH Lactate to pyruvate reaction [Catalytic activity/Vol] 532 U/L High 100 - 190 U/L [facility] Comment on above: Performed at [facility] [address] [place] [address] MAGNESIUMon 02-28-2024 Magnesium [Mass/Vol] 2.3 mg/dL Normal 1.6-2.4 [facility] Comment on above: Performed By: #### C VFLU #### [facility] [employer] [address] [place] [address] MR Brain WO and W contrast I Von 02-28-2024 Radiology Study observation (narrative) [facility] Magnesiumon 02-28-2024 Magnesium [Mass/Vol] 2.3 mg/dL 1.6 - 2.4 mg/dL [facility] Comment on above: Performed at [facility] [address] [place] [address] Magnesium [Mass/Vol]on 02-27 [facility] No Panel Informationon 02-27 Interpretation and review of laboratory results Abnormal [facility] PROTHOMBIN TIMEon 02-28-2024 INR Coag (Bld) [Relative time] 1.13 {INR} Normal 0.85-1.13 [facility] Comment on above: Result Comment: ---- -----INDICATION INR Reference Range DVT, PE, AF, AMI, tissue heart valve 2.0 to 3.0 Mechanical prosthetic valves 2.5 to 3.5 Performed By: #### M MMP, CRBM2, LPBM2 #### [facility] [address] [place] [address] Protime-INRon 02-28-2024 INR Coag (PPP) [Relative time] 1.13 {INR} 0.85 - 1.13 [facility] Comment on above: ---------INDICATION- INR Reference Range DVT, PE, AF, AMI, tissue heart valve 2.0 to 3.0 Mechanical prosthetic valves 2.5 to 3.5 Performed at [facility] [address] [place] [address] RETICULOCYTE PANELon 024 ABS RETIC COUNT 47.0 thou/mm3 Normal 20.0-115.0 [facility] Comment on above: Performed By: #### M MMP, CRBM2, LPBM2 #### [facility] [address] [place] [address] IMM RETIC FRACTION 18.5 % High 2.3-13.4 [facility] Comment on above: Performed By: #### M MMP, CRBM2, LPBM2 #### [facility] [address] [facility] [place] [address] RETIC HEMOGLOBIN 29.0 pg Normal 28.2-35.7 [facility] Comment on above: Performed By: #### M MMP, CRBM2, LPBM2 #### [facility] [address] [facility] [place] [address] RETICULOCYTES 1.1 % Normal 0.5-2.0 [facility] Comment on above: Performed By: #### M MMP, CRBM2, LPBM2 #### [facility] [address] [facility] [place] [address] Reticulocyteson 02-28-2024 Hemoglobin Auto (Reticulocytes) [Entitic mass] 29.0 pg 28.2 - 35.7 pg [facility] Comment on above: Performed at [facility] [address] [place] [address] Immature reticulocytes/Total reticulocytes (Bld) 18.5 % High 2.3 - 13.4 % [facility] Interpretation and review of laboratory results Abnormal [facility] Reticulocytes (Bld) [#/Vol] 47.0 10*3/uL [facility] [employer] Reticulocytes/100 RBC (Bld) 1.1 % 0.5 - 2.0 % [facility] SARS-COV-2 & INFLUENZA A/[facility] 02-28-2024 INFLUENZA A, RT-PCR Not detected Normal NOT DETECTED [facility] Comment on above: Performed By: #### C VFLU #### [employer] [address] [place] [address] INFLUENZA B, RT-PCR Not detected Normal NOT DETECTED [facility] Comment on above: Performed By: #### C VFLU #### [employer] [address] [place] [address] SARS-CoV-2 (COVID-19) RNA MARIKA+probe Ql (Unsp spec) Not detected Normal NOT DETECTED [facility] Comment on above: Result Comment: Not Detected [...] specimens. Performed By: #### C VFLU #### [facility] [employer] [address] [place] [address] URIC ACIDon 02-28-2024 Urate [Mass/Vol] 7.6 mg/dL High 3.7-7.0 [facility] Comment on above: Performed By: #### M MMP, CRBM2, LPBM2 #### [facility] [address] [facility] [address] Uric Acidon 02-28-2024 Urate [Mass/Vol] 7.6 mg/dL High 3.7 - 7.0 mg/dL [facility] Comment on above: Performed at [facility] [address] [place] [address] VITAMIN B12 FOLATEon 024 Cobalamin (Vitamin B12) [Mass/Vol] 734 pg/mL Normal 211-911 [facility] Comment on above: Performed By: #### C DMITRY, SCAN1 #### [address] [address] FOLATE 4.1 ng/mL Low 4.8-24.2 [facility] Comment on above: Performed By: #### C DMITRY, SCAN1 #### [facility] [address] [address] Vitamin B12 & Folateon 02-27 Cobalamin (Vitamin B12) [Mass/Vol] 734 pg/mL 211 - 911 pg/mL [facility] Folate [Mass/Vol] 4.1 ng/mL Low 4.8 - 24.2 ng/mL [facility] Comment on above: Performed at [facility] [address] [place] [address] Interpretation and review of laboratory results Abnormal [facility] aPTT Coag (Bld) [Time]on aPTT Coag (PPP) [Time] 24.6 s [facility] Comment on above: Therapeutic Heparin Reference Range= 60-95 seconds (corresponds to 0.3 to 0.7 u/mL Anti-Xa factor activity) Performed at [facility] [address] [place] [address] 25-hydroxyvitamin D3 [Mass/V ol]on 02-27-2024 [facility] BLOOD SMEAR REVIEWon PATHOLOGIST REVIEWED Estefani FUNES [facility] Comment on above: Result Comment: No s chistocytes seen Performed By: #### C RP, WSR #### [employer] [address] [place] [address] SMEAR REVIEWED BY PATHOLOGIST see below Normal [facility] Comment on above: Result Comment: See Below Performed By: #### C RP, WSR #### [employer] [address] [place] [address] C-REACTIVE PROTEINon C-REACTIVE PROTEIN 6.83 mg/dl High 0.00-1.00 [facility] Comment on above: Performed By: #### C RP, WSR #### [employer] [address] [place] [address] C-Reactive Proteinon CRP [Mass/Vol] 6.83 mg/dl High 0.00 - 1.00 mg/dl [facility] Comment on above: Performed at [facility] [address] [place] [address] CALCIUM (IONIZED) * WBon CALCIUM (IONIZED) * WB 1.11 mmol/L Low 1.12-1.32 [facility] Comment on above: Performed By: #### C BCWD, SCAN1 #### [employer] [address] [place] [address] CREATININE (URINE)on Creatinine (U) [Mass/Vol] 37.4 mg/dL [facility] Comment on above: Performed By: #### C RP, WSR #### [employer] [address] [place] [address] CRP [Mass/Vol]on 02-27-2024 Interpretation and review of laboratory results Abnormal [facility] Calcium, Ionizedon 4 Calcium.ionized ISE (Bld) [Moles/Vol] 1.11 mmol/L Low 1.12 - 1.32 mmol/L [facility] Comment on above: Performed at [facility] [facility] [address] [place] [address] Calcium.ionized ISE (Bld) [M oles/Vol]on 02-27-2024 Interpretation and review of laboratory results Abnormal [facility] Creatinine, Random Urineon 1 Creatinine (U) [Mass/Vol] 37.4 mg/dL [facility] Comment on above: Performed at [facility] [facility] [address] [place] [address] DRUG ABUSE SCREENon 02-27-20 24 AMPHETAMINE/METHAMP H Negative Normal NEGATIVE [facility] Comment on above: Performed By: #### C RP, WSR #### [facility] [address] [place] [address] BARBITURATE Negative Normal NEGATIVE [facility] Comment on above: Performed By: #### C RP, WSR #### [facility] [address] [place] [address] Benzodiazepines Ql (U) Negative Normal NEGATIVE [facility] Comment on above: Performed By: #### C RP, WSR #### [employer] [facility] [address] [place] [address] Cannabinoids Screen Ql (U) Positive Normal NEGATIVE [facility] Comment on above: Performed By: #### C RP, WSR #### [facility] [address] [place] [address] COCAINE METABOLITE Negative Normal NEGATIVE [facility] Comment on above: Performed By: #### C RP, WSR #### [facility] [address] [place] [address] FENTANYL Negative Normal NEGATIVE [facility] Comment on above: Result Comment: A N [...] Performed By: #### C RP, WSR #### [facility] [address] [place] [address] Opiates Ql (U) Negative Normal NEGATIVE [facility] Comment on above: Performed By: #### C RP, WSR #### [facility] [address] [place] [address] OXYCODONE Negative Normal NEGATIVE [facility] Comment on above: Performed By: #### C RP, WSR #### [facility] [address] [place] [address] Phencyclidine Ql (U) Negative Normal NEGATIVE [facility] Comment on above: Performed By: #### C RP, WSR #### [facility] [address] [place] [address] EEG 24 houron 02-27-2024 Rm Davis MD 02/27/2024 11:51 AM LONG-TERM EEG-VIDEO MONITORING CLINICAL NEUROPHYSIOLOGY LABORATORY DEPARTMENT OF NEUROLOGY [facility] Patient: Ethan Donald Age: 33 y.o. [...] mL IntraVENous PRN Jenny Gunter APRN - MANAGER AUDIT 0.9 % sodium chloride infusion IntraVENous PRN Jenny Gunter APRN - MANAGER AUDIT potassium chloride (KLOR-CON M) extended release tablet [...] mg SubCUTAneous Daily Jenny Gunter APRN - MANAGER AUDIT 40 mg at 02/27/24 0814 ondansetron (ZOFRAN-ODT) disintegrating tablet 4 mg 4 mg Oral Q8H PRN Jenny Gunter APRN - CNP Or ondansetron (ZOFRAN) injection 4 mg 4 mg IntraVENous Q6H PRN Jenny Gunter APRN - MANAGER AUDIT 4 mg at 02/27/24 0815 polyethylene glycol (GLYCOLAX) packet 17 g 17 g Oral Daily PRN Jenny Gunter APRN - CNP acetaminophen (TYLENOL) tablet 650 mg 650 mg Oral Q6H PRN Jenny Gunter APRN - MANAGER AUDIT 650 mg at 02/27/24 0128 Or acetaminophen [...] revealed no abnormalities. RM DAVIS MD Diplomate, [place] [employer] and Neurology Diplomate, [place] [employer] of Clinical Neurophysiology Diplomate, [place] [employer] of Epilepsy Please note this is a preliminary report and updated daily. The final report will have a summary of behavior and electrographic findings with clinical correlation. [facility] EEG 24 hourOrdered By: Rm Davis on 02-27-2024 [facility] Work Phone: EKG Rhythm Stripon 4 [facility] [facility] ESR Westergren method (Bld) [Velocity]on 02-27-2024 ESR (Bld) [Velocity] 9 mm/h [facility] Comment on above: Performed at [facility] [address] [place] [address] [facility] FIBRINOGENon 02-27-2024 FIBRINOGEN 402 mg/100ml Normal 155-475 [facility] Comment on above: Performed By: #### C BCWD, SCAN1 #### [facility] [address] [place] [address] Fibrinogenon 02-27-2024 Fibrinogen Coag (PPP) [Mass/Vol] 402 mg/dL [facility] Comment on above: Performed at [facility] [address] [place] [address] Fibrinogen Coag (PPP) [Mass/ Vol]on 02-27-[address] [facility] No Panel Informationon 02-26 [facility] [employer] OSMOLALITY URINEon 4 OSMOLALITY URINE see below Normal 250-750 [facility] Comment on above: Result Comment: Test was sent to an outside laboratory. Please refer to 'Reference' test. Performed By: #### C RP, WSR #### [facility] [address] [place] [address] Osmolality (U) [Osmolality]o n 02-27-2024 [facility] Osmolality, urineon 02-27-20 24 Osmolality (U) [Osmolality] see below [facility] [employer] Comment on above: Test was sent to an outside laboratory. Please refer to 'Reference' test. Performed at [facility] [address] [place] [address] PHOSPHORUSon 02-27-2024 Phosphate [Mass/Vol] 4.0 mg/dL Normal 2.4-4.7 [facility] Comment on above: Performed By: #### C BCWD, SCAN1 #### [facility] [address] [place] [address] POTASSIUM (URINE)on 02-27-20 24 POTASSIUM (URINE) 9.5 meq/l Normal [facility] Comment on above: Performed By: #### C RP, WSR #### [facility] [address] [place] [address] Path Review, Smearon 024 REVIEWED BY Estefani [facility] [employer] Comment on above: No schistocytes seen Performed at [facility] [address] [place] [address] Smear Review see below [employer] [facility] Comment on above: See Below [employer] Phosphate [Mass/Vol]on 02-26 [facility] Phosphoruson 02-27-2024 Phosphate [Mass/Vol] 4.0 mg/dL 2.4 - 4.7 mg/dL [facility] Comment on above: Performed at [facility] [address] [place] [address] Potassium, urine, randomon 1 Potassium (U) [Moles/Vol] 9.5 mmol/L [employer] Comment on above: Performed at [facility] [address] [place] [address] REFERENCE SPECIMENon 024 REFERENCE RANGE 50-1400 mOsm Normal [facility] TEST RESULT (WITH UNITS) 182 mOsm Normal [facility] ORIGINAL SAMPLE NUMBER [id number] Normal [facility] REFERENCE LOCATION see below Normal [facility] Comment on above: Result Comment: Perf ormed at [facility] [address] [place] [address] TEST(S) BEING PERFORMED URINE OSMO Normal [facility] Reference lab sampleon 02-26 ORIGINAL SAMPLE NUMBER [id number] [employer] REFERENCE LOCATION see below [employer] [facility] [employer] Comment on above: Performed at [facility] [address] [place] [address] Reference Range 50-1400 [facility] TEST RESULTS WITH UNITS 182 mOsm [employer] TEST(S) BEING PERFORMED URINE OSMO [email or web address] SED RATEon 02-27-2024 SED RATE 9 mm/hr Normal 0- [facility] Comment on above: Performed By: #### C RP, WSR #### [facility] [address] [place] [address] SODIUM (URINE)on 02-27-2024 Sodium (U) [Moles/Vol] mmol/L Normal [facility] Comment on above: Performed By: #### C RP, WSR #### [facility] [address] [place] [address] Sodium, urine, randomon 01-30 Sodium (U) [Moles/Vol] mmol/L meq/l [employer] Comment on above: Performed at [facility] [address] [place] [address] URINALYSIS W/ MICROon 2023 BACTERIA NONE SEEN Normal FEW/NONE SEEN [facility] Comment on above: Performed By: #### U AWM2 #### [facility] [place] [address] CASTS NONE SEEN Normal NONE SEEN [facility] Comment on above: Performed By: #### U AWM2 #### [facility] [address] [place] [address] CASTS 2 NONE SEEN Normal [facility] Comment on above: Performed By: #### U AWM2 #### [facility] [address] [facility] [place] [address] Crystals LM Nom (Urine sed) NONE SEEN Normal NONE SEEN [facility] Comment on above: Performed By: #### U AWM2 #### [facility] [address] [place] [address] EPITHELIAL NONE SEEN Normal 3-5/hpf [facility] Comment on above: Performed By: #### U AWM2 #### [facility] [address] [place] [address] [place] [address] MISCELLANEOUS 2 NONE SEEN Normal [facility] Comment on above: Performed By: #### U AWM2 #### [facility] [address] [place] [address] [place] [address] RBC NONE SEEN Normal 0-2/hpf [facility] Comment on above: Performed By: #### U AWM2 #### [facility] [address] [place] [address] RENAL EPITHELIAL NONE SEEN Normal NONE SEEN [facility] Comment on above: Performed By: #### U AWM2 #### [facility] [address] [place] [address] [place] [address] WBC NONE SEEN Normal 0-4/hpf [facility] Comment on above: Performed By: #### U AWM2 #### [facility] [address] [place] [address] [place] [address] YEAST NONE SEEN Normal NONE SEEN [facility] Comment on above: Performed By: #### U AWM2 #### [facility] [address] [place] [address] Bilirubin Ql (U) Negative Normal NEGATIVE [facility] Comment on above: Performed By: #### U AWM2 #### [facility] [address] [facility] [place] [address] CHARACTER CLEAR Normal CLR-SL.CLOUD [facility] Comment on above: Performed By: #### U AWM2 #### [facility] [address] [place] [address] Color (U) YELLOW Normal YELLOW-STRAW [facility] Comment on above: Performed By: #### U AWM2 #### [facility] [address] [place] [address] Glucose Ql (U) Negative Normal NEGATIVE [facility] Comment on above: Performed By: #### U AWM2 #### [facility] [address] [place] [address] Hemoglobin Ql (U) Negative Normal NEGATIVE [facility] Comment on above: Performed By: #### U AWM2 #### [facility] [address] [place] [address] Ketones Ql (U) Negative Normal NEGATIVE [facility] Comment on above: Performed By: #### U AWM2 #### [address] [address] LEUKOCYTES Negative Normal NEGATIVE [facility] Comment on above: Performed By: #### U AWM2 #### [facility] [address] [place] [address] Nitrite Ql (U) Negative Normal NEGATIVE [facility] Comment on above: Performed By: #### U AWM2 #### [address] [address] pH (U) 6.5 [pH] Normal 5.0 - 9.0 [facility] Comment on above: Performed By: #### U AWM2 #### [address] [address] Protein Ql (U) Negative Normal NEGATIVE [facility] Comment on above: Performed By: #### U AWM2 #### [facility] [address] [place] [address] Specific gravity (U) [Rel density] 1.007 Normal 1.002-1.030 [facility] Comment on above: Performed By: #### U AWM2 #### [facility] [address] [place] [address] Urobilinogen Qn (U) 1.0 {Butch'U}/dL Normal 0.0 - 1. 0 [facility] Comment on above: Performed By: #### U AWM2 #### [facility] [address] [place] [address] Urinalysis dipstick W Reflex Microscopic panel (U)on 02-27-2024 Bacteria, UA NONE SEEN FEW/NONE SEEN [facility] Bilirubin Ql (U) Negative NEGATIVE [facility] Casts LM.LPF (Urine sed) [#/Area] NONE SEEN /lpf [facility] Character (U) CLEAR CLR-SL.CLOUD [facility] Charcoal LM Ql (Urine sed) NONE SEEN [facility] Comment on above: Performed at [facility] [address] [place] [address] Color (U) YELLOW YELLOW-STRAW [facility] Crystals LM Ql (Urine sed) NONE SEEN NONE SEEN [facility] Epithelial Cells, UA NONE SEEN 3-5/hpf /hpf [facility] Epithelial cells.renal LM.HPF (Urine sed) [#/Area] NONE SEEN NONE SEEN [facility] Fungi.yeastlike LM Ql (Urine sed) NONE SEEN NONE SEEN [facility] Glucose Auto test strip Ql (U) Negative NEGATIVE mg/dl [facility] Hemoglobin Auto test strip Ql (U) Negative NEGATIVE [facility] Ketones Auto test strip Ql (U) Negative NEGATIVE [facility] Leukocyte esterase Auto test strip Ql (U) Negative NEGATIVE [facility] Nitrite Auto test strip Ql (U) Negative NEGATIVE [facility] pH (U) 6.5 [pH] 5.0 - 9.0 [facility] Protein (U) [Mass/Vol] Negative NEGATIVE mg/dl [facility] RBC LM.HPF (Urine sed) [#/Area] NONE SEEN 0-2/hpf /hpf [facility] Specific [place], UA 1.007 1.002 - 1.030 [facility] Urobilinogen, Urine 1.0 [facility] WBC LM.HPF (Urine sed) [#/Area] NONE SEEN 0-4/hpf /hpf [facility] Urine Drug Screenon 02-27-20 24 Amphetamines [...] are for medical use only. Performed at [facility] [address] [place] [address] Opiates Screen Ql (U) Negative NEGATIVE [facility] Oxycodone Negative NEGATIVE [facility] Phencyclidine Ql (U) Negative NEGATIVE [facility] VITAMIN D TOTAL 25 (OH)on VITAMIN D TOTAL 25 (OH) 32 ng/ml Normal 30-100 [facility] Comment on above: Result Comment: Lashanda min D Status Range Deficiency <20 ng/ml Insuffiency 20-30 ng/ml Sufficiency 30-100 ng/ml Toxicity >100 ng/ml Performed By: #### C VFLU #### [facility] [address] [place] [address] Vitamin D 25 Hydroxyon 02-26 25-hydroxyvitamin D3 [Mass/Vol] 32 ng/mL 30 - 100 ng/ml [facility] Comment on above: Vitamin D Status Ran ge Deficiency <20 ng/ml Insuffiency 20-30 ng/ml Sufficiency 30-100 ng/ml Toxicity >100 ng/ml Performed at [facility] [address] [place] [address] Basic Metabolic Profon 10-28 -2024 Anion gap [Moles/Vol] 15 mmol/L Normal 9-16 [facility] Comment on above: Performed By: #### T MARY CHEN, BMP #### [facility] [address] [place] [address] [employer] Supervisor: Ramo Jesus MD BUN/CRE Ratio 11 Normal 9-20 [facility] Comment on above: Performed By: #### T MARY CHEN, BMP #### [facility] [address] [place], [place] 9164783 [employer] Supervisor: Ramo Jesus MD Calcium [Mass/Vol] 9.3 mg/dL Normal 8.6-10.4 [facility] Comment on above: Performed By: #### MARY RODAS, BMP #### [facility] [address] [place] [address] [address] [place], [place] 2526383 [employer] Supervisor: Ramo Jesus MD Chloride [Moles/Vol] 97 mmol/L Low 98-107 [facility] Comment on above: Performed By: #### MARY RODAS, BMP #### [address] [place] [address] [employer] Supervisor: Ramo Jesus MD CO2 [Moles/Vol] 23 mmol/L Normal 20-31 [facility] Comment on above: Performed By: #### MARY RODAS, BMP #### [facility] [address] [place], [place] 9204083 [employer] Supervisor: Ramo Jesus MD Creatinine [Mass/Vol] 1.2 mg/dL Normal 0.70-1.20 [facility] Comment on above: Performed By: #### MARY RODAS, BMP #### [facility] [address] [place] [address] [employer] Supervisor: Ramo Jesus MD GFR/1.73 sq M.predicted among non-blacks MDRD (S/P/Bld) [Vol rate/Area] 80 mL/min/{1.73_m2} Normal >60 [facility] Comment on above: Result Comment: These results [...] By: #### T MARY CHEN, BMP #### [facility] [address] [place] [address] [employer] Supervisor: Ramo Jesus MD Glucose [Mass/Vol] 100 mg/dL High 74-99 [facility] Comment on above: Performed By: #### MARY RODAS, BMP #### [address] [place], [place] 7[address]83 [employer] Supervisor: Ramo Jesus MD Potassium [Moles/Vol] 3.3 mmol/L Low 3.7-5.3 [facility] Comment on above: Performed By: #### MARY RODAS, BMP #### [address] [place], [place] 7168783 [employer] Supervisor: Ramo Jesus MD Sodium [Moles/Vol] 135 mmol/L Low 136-145 [facility] Comment on above: Performed By: #### MARY RODAS, BMP #### [facility] [address] [place], [place] 2250383 [employer] Supervisor: Ramo Jesus MD Urea nitrogen [Mass/Vol] 13 mg/dL Normal 6-20 [facility] Comment on above: Performed By: #### MARY RODAS, BMP #### [facility] [address] [place] [address] [employer] Supervisor: Ramo Jesus MD C-Reactive Proteinon 10-28-2 024 CRP [Mass/Vol] 81.9 mg/L High 0.0-5.0 [facility] Comment on above: Performed By: #### S ED, CRP #### [facility] [address] [place] [address] [employer] Supervisor: Ramo Jesus MD CBC with Diffon 02-26-2024 Abs. Basophil 0.04 k/uL Normal 0.0-0.2 [facility] Comment on above: Performed By: #### T MARY CHEN, BMP #### [facility] [address] [place] [address] [employer] Supervisor: Ramo Jesus MD Abs.Imm.Granulocyte 0.04 k/uL Normal 0.00-0.30 [facility] Comment on above: Performed By: #### MARY RODAS, BMP #### [address] [place] [address]284883 [employer] Supervisor: Ramo Jesus MD Abs.Neutrophil (Seg) 2.58 k/uL Normal 1.50-8.10 [facility] Comment on above: Performed By: #### MARY RODAS, BMP #### [address] [place] [address] [employer] Supervisor: Ramo Jesus MD Basophils/100 WBC (Bld) 1 % Normal 0-2 [facility] Comment on above: Performed By: #### MARY RODAS, BMP #### [address] [place] [address] [employer] Supervisor: Ramo Jesus MD Eosinophils (Bld) [#/Vol] 0.08 10*3/uL Normal 0.00-0.44 [facility] Comment on above: Performed By: #### T MARY CHEN, BMP #### [address] [place], [place] 5846883 [employer] Supervisor: Ramo Jesus MD Eosinophils/100 WBC (Bld) 2 % Normal 1-4 [facility] Comment on above: Performed By: #### T MARY CHEN, BMP #### [facility] [address] [place], [place] 2056183 [employer] Supervisor: Ramo Jesus MD Immature granulocytes/100 WBC (Bld) 1 % High 0 [facility] Comment on above: Performed By: #### T MARY CHEN, BMP #### [facility] [address] [place], [place] [address] [employer] Supervisor: Ramo Jesus MD Lymphocytes (Bld) [#/Vol] 1.03 10*3/uL Low 1.10-3.70 [facility] Comment on above: Performed By: #### T MARY CHEN, BMP #### [address] [place], [facility] [employer] Supervisor: Ramo Jesus MD Lymphocytes/100 WBC (Bld) 25 % Normal 24-43 [facility] Comment on above: Performed By: #### T MARY CHEN, BMP #### [address] [place], [facility] [employer] Supervisor: Ramo Jesus MD Monocytes (Bld) [#/Vol] 0.33 10*3/uL Normal 0.10-1.20 [facility] Comment on above: Performed By: #### MARY RODAS, BMP #### [address] [place], [facility] [employer] Supervisor: Ramo Jesus MD Monocytes/100 WBC (Bld) 8 % Normal 3-12 [facility] Comment on above: Performed By: #### T MARY CHEN, BMP #### [address] [place], [facility] [employer] Supervisor: Ramo Jesus MD Morphology Gianni (Bld) [Interp] Normal Normal [facility] Comment on above: Performed By: #### T MARY CHEN, BMP #### [facility] [address] [place], [place] 6363583 [employer] Supervisor: Ramo Jesus MD Neutrophil (Seg) 63 % Normal 36-65 [facility] Comment on above: Performed By: #### T MARY CHEN, BMP #### [facility] [address] [place] [address] [employer] Supervisor: Ramo Jesus MD Platelet, Fluoresc. 117 k/uL Low 138-453 [facility] Comment on above: Performed By: #### T MARY CHEN, BMP #### [facility] [address] [place] [address] [employer] Supervisor: Ramo Jesus MD PLT, Immature Fract. 3.6 % Normal 1.1-10.3 [facility] Comment on above: Performed By: #### T MARY CHEN, BMP #### [address] [place], [place] 6007983 [employer] Supervisor: Ramo Jesus MD Erythrocyte distribution width (RBC) [Ratio] 12.0 % Normal 11.8-14.4 [facility] Comment on above: Performed By: #### T MARY CHEN, BMP #### [address] [place], [place] 8182883 [employer] Supervisor: Ramo Jesus MD Hematocrit (Bld) [Volume fraction] 41.0 % Normal 40.7-50.3 [facility] Comment on above: Performed By: #### T MARY CHEN, BMP #### [address] [place], [place] 6741483 [employer] Supervisor: Ramo Jesus MD Hemoglobin (Bld) [Mass/Vol] 14.7 g/dL Normal 13.0-17.0 [facility] Comment on above: Performed By: #### T MARY CHEN, BMP #### [address] [place], [place] 9127983 [employer] Supervisor: Ramo Jesus MD MCH (RBC) [Entitic mass] 31.1 pg Normal 25.2-33.5 [facility] Comment on above: Performed By: #### MARY RODAS, BMP #### [facility] [address] [place], [place] 4599483 [employer] Supervisor: Ramo Jesus MD MCHC (RBC) [Mass/Vol] 35.9 g/dL High 28.4-34.8 [facility] Comment on above: Performed By: #### MARY RODAS, BMP #### [facility] [address] [place], [place] 8362783 [employer] Supervisor: Ramo Jesus MD MCV (RBC) [Entitic vol] 86.9 fL Normal 82.6-102.9 [facility] Comment on above: Performed By: #### MARY RODAS, BMP #### [address] [place], [facility] [employer] Supervisor: Ramo Jesus MD NRBC Automated 0.0 per 100 WBC Normal 0.0 [facility] Comment on above: Performed By: #### MARY RODAS, BMP #### [address] [place], [place] 3259083 [employer] Supervisor: Ramo Jesus MD Platelet Count See Reflexed IPF Result Normal 138-453 [facility] Comment on above: Performed By: #### MARY RODAS, BMP #### [facility] [address] [place], [place] 8185883 [employer] Supervisor: Ramo Jesus MD RBC (Bld) [#/Vol] 4.72 10*6/uL Normal 4.21-5.77 [facility] Comment on above: Performed By: #### MARY RODAS, BMP #### [facility] [address] [place] [address] [employer] Supervisor: Ramo Jesus MD WBC (Bld) [#/Vol] 4.1 10*3/uL Normal 3.5-11.3 [facility] Comment on above: Performed By: #### T MARY CHEN, BMP #### [facility] [address] [place] [address] [employer] Supervisor: Ramo Jesus MD CT HEAD WO CONTRASTon [...] the head or neck. Interpreted by: Sam Rokcwell DO Signed by: Sam Rockwell DO 02/26/24 Final result Normal [facility] CTA HEAD NECK W CONTRASTon 1 CTA [...] Sam Rockwell DO 02/26/24 Final result Normal [facility] Glucose, Whole Bloodon 02-25 Glucose [Mass/Vol] 105 mg/dL High 74-100 [facility] Liver Profileon 02-26-2024 Albumin [Mass/Vol] 4.1 g/dL Normal 3.5-5.2 [facility] Comment on above: Performed By: #### L IVP ####[address] [place] [address] Lab Director: Ramo Jesus MD Albumin/Glob Ratio 1.3 Normal 1.0-2.5 [facility] Comment on above: Performed By: #### L IVP ####[address] , [place] 6249383 Lab Director: Ramo Jesus MD Alkaline Phos 97 U/L Normal 40-129 [facility] Comment on above: Performed By: #### L IVP ####[address] , [place] 686[address]83 Lab Director: Ramo Jesus MD ALT [Catalytic activity/Vol] 45 U/L Normal 10-50 [facility] Comment on above: Performed By: #### L IVP ####[address] [place] [address] Lab Director: Ramo Jesus MD AST [Catalytic activity/Vol] 54 U/L High 10-50 [facility] Comment on above: Performed By: #### L IVP ####[address] , [place] 3044283 Lab Director: Ramo Jesus MD Bilirubin [Mass/Vol] 1.1 mg/dL Normal 0.00-1.20 [facility] Comment on above: Performed By: #### L IVP ####[address] , [place] 9591383 Lab Director: Ramo Jesus MD Bilirubin, Indirect 0.6 mg/dL Normal 0.0-1.0 [facility] Comment on above: Performed By: #### L IVP ####[address] , [place] 2308583 Lab Director: Ramo Jesus MD Bilirubin.indirect [Mass/Vol] 0.5 mg/dL High 0.00-0.30 [facility] Comment on above: Performed By: #### L IVP ####[address] , [place] 1672283 Lab Director: Ramo Jesus MD Protein [Mass/Vol] 7.2 g/dL Normal 6.6-8.7 [facility] Comment on above: Performed By: #### L IVP ####[address] , [place] 0154983 Lab Director: Ramo Jesus MD Prolactinon 02-26-2024 Prolactin 4.70 ng/mL Normal 4.04-15.2 [facility] Comment on above: Result Comment: The presence of macroprolactin may cause interference in female patients with various endocrinological diseases or during . Performed By: #### P ROL #### [facility] [address] [place] [address] [employer] Supervisor: Ra Kilpatrick MD Sedimentation Rateon 024 Sedimentation Rate 17 mm/Hr High 0-15 [facility] Comment on above: Performed By: #### S ED, CRP #### [facility] [address] [place], [place] 1108583 [employer] Supervisor: Ramo Jesus MD Troponinon 02-26-2024 Troponin, High Sens 9 ng/L Normal 0-22 [facility] Comment on above: Result Comment: High Sensitivity Troponin values cannot be compared with other Troponin methodologies. Performed By: #### T ROPI, CDP, BMP #### [facility] [address] [place], [place] 6390183 [employer] Supervisor: Ramo Jesus MD UA w/Reflex Cultureon 2023 Bilirubin, SemiQt,Ur Negative Normal NEG [facility] Comment on above: Performed By: #### U AX, UMICAO #### [facility] [address] [place] [address] [address] [place], [place] 1722983 [employer] Supervisor: Ramo Jesus MD Blood, Urine Negative Normal NEG [facility] Comment on above: Performed By: #### U AX, UMICAO #### [facility] [address] [place] [id number] Stock Broker Supervisor: Ramo Jesus MD Clarity (U) Clear Normal CLEAR [facility] Comment on above: Performed By: #### U AX, UMICAO #### [facility] [place] [facility] [address] [place] [address] [place] [place], [place] [address] Stock Broker Supervisor: Ramo Jesus MD Color (U) Yellow Normal YEL [facility] Comment on above: Performed By: #### U AX, UMICAO #### [facility] [place] [facility] [address] [place], [place] [id number] Stock Broker Supervisor: Ramo Jesus MD Glucose Ql (U) Negative Normal NEG [facility] Comment on above: Performed By: #### U AX, UMICAO #### [facility] [place] [facility] [address] [place], [place] [id number] Stock Broker Supervisor: Ramo Jesus MD Ketones Ql (U) 2+ mg/dL Abnormal NEG [facility] Comment on above: Performed By: #### U AX, UMICAO #### [facility] [place] [facility] [address] [place] [address] [place], [place] [address] Stock Broker Supervisor: Ramo Jesus MD Leukocyte esterase Test strip Ql (U) Negative Normal NEG [facility] Comment on above: Performed By: #### U AX, UMICAO #### [facility] [place] [facility] [address] [place] [address] Dr. [place], [facility] Stock Broker Supervisor: Ramo Jesus MD Nitrite,Ur Negative Normal NEG [facility] Comment on above: Performed By: #### U AX, UMICAO #### [facility] [place] [facility] [address] [place] [address] Dr. [place], [facility] Stock Broker Supervisor: Ramo Jeuss MD PH,Ur 6.0 Normal 5.0-9.0 [facility] Comment on above: Performed By: #### U AX, UMICAO #### [facility] [place] [facility] [address] [place] [address] [place], [place] [address] Stock Broker Supervisor: Ramo Jesus MD Protein Ql (U) Negative Normal NEG [facility] Comment on above: Performed By: #### U AX, UMICAO #### [facility] [place] [facility] [address] [place] [address] [address] [address] Stock Broker Supervisor: Ramo Jesus MD Spec. [place],Ur 1.010 Normal 1.010-1.020 [facility] Comment on above: Performed By: #### U AX, UMICAO #### [facility] [place] [facility] [address] [place] [address] Dr. [place], [place] [id number] Stock Broker Supervisor: Ramo Jesus MD Urobilinogen,Ur Normal Normal 0.0-1.0 [facility] Comment on above: Performed By: #### U AX, UMICAO #### [facility] [place] [facility] [address] [place], [place] [id number] Stock Broker Supervisor: Ramo Jesus MD Urinalysis,Microon 4 Bacteria TRACE Abnormal NONE [facility] Comment on above: Performed By: #### U AX, UMICAO ####[address] , [place] [id number] Lab Director: Ramo Jesus MD Epithelial cells LM Ql (Urine sed) 0 TO 2 Normal 0-5 [facility] Comment on above: Performed By: #### U AX, UMICAO ####[address] [place] [address] Lab Director: Ramo Jesus MD Urine RBC's 0 TO 2 Normal 0-2 [facility] Comment on above: Performed By: #### U AX, UMICAO ####[address] [place] [address] Lab Director: Ramo Jesus MD Urine WBC's 0 TO 2 Normal 0-5 [facility] Comment on above: Performed By: #### U AX, UMICAO ####[address] , [place] [id number] Lab Director: Ramo Jesus MD XR CHEST PORTABLEon 02-26-20 XR CHEST PORTABLE EXAMINATION: ONE XRAY VIEW OF THE CHEST 02/26/2024 1:06 pm COMPARISON: None. HISTORY: ORDERING SYSTEM PROVIDED HISTORY: syncope TECHNOLOGIST PROVIDED HISTORY: syncope 33-year-old male with syncope FINDINGS: AP portable view of the chest awake overnight monitor leads overlie the chest Trachea midline. No pneumothorax. No acute focal airspace consolidation or pleural effusions. Cardiac and mediastinal contours within normal limits. No acute osseous abnormality. IMPRESSION: No acute focal airspace consolidation or effusions. Interpreted by: Rubio Suarez MD Signed by: Rubio Suarez MD 02/26/24 Final result Normal [facility] OPERATIVE REPORTon 3 OPERATIVE REPORT [address] [id number] OPERATIVE REPORT PATIENT NAME: ETHNA DONALD : 1990 MED REC NO: [id number] ROOM: ACCOUNT NO: [id number] ADMIT DATE: 03/13/2023 PROVIDER: Jon Reynoso DATE OF PROCEDURE: 03/13/2023 PREOPERATIVE DIAGNOSES: 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 POSTOPERATIVE DIAGNOSES: 1. Subluxing patella. 2. Chondromalacia. 3. Nashua-Schlatter disease. PROCEDURES PERFORMED: Arthroscopy of right knee with: 1. Chondroplasty. 2. Lateral release. 3. Mini arthrotomy with excision of Nashua-Schlatter ossicle. SURGEON: Dr. Jon Reynoso. ANESTHESIA: General. [...] tendon was then split longitudinally and the [place]--Schlatter ossicle was removed from the tendon. X-ray was obtained to verify that all the [place]ua--Schlatter ossicle had been removed. The tendon was then oversewn with 2-0 Vicryl interrupted [id number] sutures. Skin margins were injected with 0.5% [...] in two weeks. JON REYNOSO PH/[id number] Doc#: [id number] CC: Normal [facility] XR KNEE RIGHT (1-2 VIEWS)on 03-13-2023 XR [...] Alfonso Charles MD 03/13/23 Final result Normal [facility] GROUP A STREP CULTUREon 07-30 S. pyogenes Ag Ql (Unsp spec) Culture Observations: NEGATIVE FOR GROUP A STREPTOCOCCUS. Normal [facility] Comment on above: Performed By: #### S SCRN, GRASTCX #### [facility] [address] [place] [address] Dr. Pratibha Stevenson STREPT SCREENon 08-11-2022 STREP SCREEN A Negative Normal NEGATIVE [facility] Comment on above: Performed By: #### S SCRN, GRASTCX #### [facility] [address] [place] [address] Dr. Pratibha Stevenson AMYLASEon 07-23-2022 Amylase [Catalytic activity/Vol] 50 U/L Normal 25-115 [facility] Comment on above: Performed By: #### E RUR #### [facility] [address] [place] [address] Dr. Pratibha Stevenson CBC AUTO DIFFon 07-23-2022 BASO # 0.1 103/ul Normal 0.0-0.1 [facility] Comment on above: Performed By: #### L ACT #### [facility] [address] [place] [address] Dr. Pratibha Stevenson Basophils/100 WBC (Bld) 1.0 % Normal 0.2-2.0 [facility] Comment on above: Performed By: #### L ACT #### [facility] [address] [place] [address] Dr. Pratibha Stevenson EO # 0.1 103/ul Normal 0.0-0.7 [facility] Comment on above: Performed By: #### L ACT #### [facility] [address] [place] [address] Dr. Pratibha Stevenson Eosinophils/100 WBC (Bld) 1.7 % Normal 0.9-7.0 [facility] Comment on above: Performed By: #### L ACT #### [facility] [address] [place] [address] Dr. Pratibha Stevenson Erythrocyte distribution width (RBC) [Ratio] 12.1 % Normal 11.0-15.0 [facility] Comment on above: Performed By: #### L ACT #### [facility] [address] [place] [address] Dr. Pratibha Stevenson Hematocrit (Bld) [Volume fraction] 45.9 % Normal 42.0-54.0 [facility] Comment on above: Performed By: #### L ACT #### [facility] [address] [place] [address] Dr. Pratibha Stevenson Hemoglobin (Bld) [Mass/Vol] 15.6 g/dL Normal 14.0-18.0 [facility] Comment on above: Performed By: #### L ACT #### [facility] [address] [place] [address] Dr. Pratibha Stevenson IG # 0.01 10e3/ul Normal 0.00-0.03 [facility] Comment on above: Performed By: #### L ACT #### [facility] [address] [place] [address] Dr. Pratibha Stevenson IG % 0.1 % Normal 0.0-0.5 [facility] Comment on above: Performed By: #### L ACT #### [facility] [address] [place] [address] Dr. Pratibha Stevenson LYMPH # 2.0 103/ul Normal 1.2-3.8 [facility] Comment on above: Performed By: #### L ACT #### [facility] [address] [place] [address] Dr. Pratibha Stevenson Lymphocytes/100 WBC (Bld) 28.8 % Normal 20.5-60.0 [facility] Comment on above: Performed By: #### L ACT #### [facility] [address] [place] [address] Dr. Pratibha Stevenson MANUAL DIFF REQ NO Normal [facility] Comment on above: Performed By: #### L ACT #### [facility] [address] [place] [address] Dr. Pratibha Stevenson MCH (RBC) [Entitic mass] 31.3 pg Normal 25.9-34.0 [facility] Comment on above: Performed By: #### L ACT #### [facility] [address] [address] [address] Pratibha Stevenson MCHC (RBC) [Mass/Vol] 34.0 g/dL Normal 29.9-35.2 [facility] Comment on above: Performed By: #### L ACT #### [facility] [address] [address] [address] Pratibha Stevenson MCV (RBC) [Entitic vol] 92.2 fL Normal 80.0-94.0 [facility] Comment on above: Performed By: #### L ACT #### [facility] [address] [place] [address] Dr. Pratibha Stevenson MONO # 0.3 103/ul Normal 0.3-0.8 [facility] Comment on above: Performed By: #### L ACT #### [facility] [address] [address] [address] Pratibha Stevenson Monocytes/100 WBC (Bld) 4.3 % Normal 1.7-12.0 [facility] Comment on above: Performed By: #### L ACT #### [facility] [address] [address] [address] Pratibha Stevenson NEUT # 4.5 103/ul Normal 1.4-6.5 [facility] Comment on above: Performed By: #### L ACT #### [facility] [address] [address] [address] Pratibha Stevenson Neutrophils/100 WBC (Bld) 64.1 % Normal 43.0-75.0 [facility] Comment on above: Performed By: #### L ACT #### [facility] [address] [address] [address] Pratibha Stevenson Platelet mean volume (Bld) [Entitic vol] 10.3 fL Normal 9.5-13.5 [facility] Comment on above: Performed By: #### L ACT #### [facility] [address] [place], [place] [address] Dr. Pratibha Stevenson PLT 219 103/ul Normal 150-450 [facility] Comment on above: Performed By: #### L ACT #### [facility] [address] [place], [place] [address] Dr. Pratibha Stevenson RBC 4.98 106/ul Normal 4.70-6.10 [facility] Comment on above: Performed By: #### L ACT #### [facility] [address] [place], [place] [address] Dr. Pratibha Stevenson WBC 7.1 103/ul Normal 4.0-11.0 [facility] Comment on above: Performed By: #### L ACT #### [facility] [id number] Pratibha Stevenson CT ABD/PELV W CONon [...] Date: 2022-07-22 23:53 Normal [facility] DRUG SCREEN RAPID (URINE)on 07-23-2022 AMP Negative Normal NEGATIVE [facility] Comment on above: Performed By: #### E RUR #### [facility] [address] [place] [address] Dr. Pratibha Stevenson BAR Negative Normal NEGATIVE [facility] Comment on above: Performed By: #### E RUR #### [facility] [address] [address] [address] Pratibha Stevenson BUP Negative Normal NEGATIVE [facility] Comment on above: Performed By: #### E RUR #### [facility] [address] [place] [address] Dr. Pratibha Stevenson BZO Negative Normal NEGATIVE [facility] Comment on above: Performed By: #### E RUR #### [facility] [address] [place] [address] Dr. Pratibha Stevenson EMELY Negative Normal NEGATIVE [facility] Comment on above: Performed By: #### E RUR #### [facility] [address] [address] [address] Pratibha Stevenson CUT-OFFS SEE BELOW Normal [facility] Comment on above: Result Comment: AMP (Amphetamine): [...] By: #### E RUR #### [facility] [address] [place] [address] Dr. Pratibha Stevenson DRUG CUT HEADER DRUG CLASS TEST SYST EM CUT-OFF CONCENTRATIONS ARE FOLLOWS: Normal [facility] Comment on above: Performed By: #### E RUR #### [facility] [address] [place] [address] Dr. Pratibha Stevenson mAMP Negative Normal NEGATIVE [facility] Comment on above: Performed By: #### E RUR #### [facility] [address] [place] [address] Dr. Pratibha Stevenson MTD Negative Normal NEGATIVE [facility] Comment on above: Performed By: #### E RUR #### [facility] [address] [place] [address] Dr. Pratibha Stevenson OPI Positive Abnormal NEGATIVE [facility] Comment on above: Performed By: #### E RUR #### [facility] [address] [place] [address] Dr. Pratibha Stevenson OXY Negative Normal NEGATIVE [facility] Comment on above: Performed By: #### E RUR #### [facility] [address] [place] [address] Dr. Pratibha Stevenson PCP Negative Normal NEGATIVE [facility] Comment on above: Performed By: #### E RUR #### [facility] [address] [place] [address] Dr. Pratibha Stevenson PPX Negative Normal NEGATIVE [facility] Comment on above: Performed By: #### E RUR #### [facility] [address] [place] [address] Dr. Pratibha Stevenson TCA Positive Abnormal NEGATIVE [facility] Comment on above: Performed By: #### E RUR #### [facility] [address] [place] [address] Dr. Pratibha Stevenson THC Positive Abnormal NEGATIVE [facility] Comment on above: Performed By: #### E RUR #### [facility] [address] [place] [address] Dr. Pratibha Stevenson ER URINE PROFILEon 3 Bilirubin Ql (U) Negative Normal NEGATIVE [facility] Comment on above: Performed By: #### E RUR #### [facility] [address] [place] [address] Dr. Pratibha Stevenson Clarity (U) CLEAR Normal CLEAR [facility] Comment on above: Performed By: #### E RUR #### [facility] [address] [place] [address] Dr. Pratibha Stevenson Color (U) LT. YELLOW Normal YELLOW [facility] Comment on above: Performed By: #### E RUR #### [facility] [address] [place] [address] Dr. Pratibha Stevenson ERUAHD A micrscopic examination will be performed if indicated. Normal [facility] Comment on above: Performed By: #### E RUR #### [facility] [address] [place] [address] Dr. Pratibha Stevenson Glucose Ql (U) Negative Normal NEGATIVE [facility] Comment on above: Performed By: #### E RUR #### [facility] [address] [place] [address] Dr. Pratibha Stevenson Hemoglobin Ql (U) Negative Normal NEGATIVE [facility] Comment on above: Performed By: #### E RUR #### [facility] [address] [place] [address] Dr. Pratibha Stevenson Ketones Ql (U) Negative Normal NEGATIVE [facility] Comment on above: Performed By: #### E RUR #### [facility] [address] [place] [address] Dr. Pratibha Stevenson LEUKOCYTES Negative Normal NEGATIVE [facility] Comment on above: Performed By: #### E RUR #### [facility] [address] [place] [address] Dr. Pratibha Stevenson Nitrite Ql (U) Negative Normal NEGATIVE [facility] Comment on above: Performed By: #### E RUR #### [facility] [address] [place] [address] Dr. Pratibha Stevenson pH (U) 5.5 [pH] Normal 5-9 [facility] Comment on above: Performed By: #### E RUR #### [facility] [address] [place] [address] Dr. Pratibha Stevenson SPEC GRAVITY <=1.005 Abnormal 1.005-<=1.025 [facility] Comment on above: Performed By: #### E RUR #### [facility] [address] [place] [address] Dr. Pratibha Stevenson UA PROTEIN Negative Normal NEGATIVE/ TRACE [facility] Comment on above: Performed By: #### E RUR #### [facility] [address] [place] [address] Dr. Pratibha Stevenson UR MICRO IND NOT INDICATED Normal [facility] Comment on above: Performed By: #### E RUR #### [facility] [address] [place] [address] Dr. Pratibha Stevenson Urobilinogen Qn (U) 0.2 {Butch'U}/dL Normal 0.2 - 1. 0 [facility] Comment on above: Performed By: #### E RUR #### [facility] [address] [place] [address] Dr. Pratibha Stevenson LIPASEon 07-23-2022 Lipase [Catalytic activity/Vol] 126.0 U/L Normal 73.0-393.0 [facility] Comment on above: Performed By: #### E RUR #### [facility] [address] [place] [address] Dr. Pratibha Stevenson PROF 14(COMP METB)on 023 Albumin [Mass/Vol] 4.2 g/dL Normal 3.4-5.0 [facility] Comment on above: Performed By: #### E RUR #### [facility] [address] [place] [address] Dr. Pratibha Stevenson Albumin/Globulin [Mass ratio] 1.4 {ratio} Normal [facility] Comment on above: Performed By: #### E RUR #### [facility] [address] [place] [address] Dr. Pratibha Stevenson ALP [Catalytic activity/Vol] 87 U/L Normal 46-116 [facility] Comment on above: Performed By: #### E RUR #### [facility] [address] [place] [address] Dr. Pratibha Stevenson ALT [Catalytic activity/Vol] 20 U/L Normal 16-63 [facility] Comment on above: Performed By: #### E RUR #### [facility] [address] [address] [address] Pratibha Stevenson Anion gap [Moles/Vol] 12.8 mmol/L Normal [facility] Comment on above: Performed By: #### E RUR #### [facility] [address] [address] [address] Pratibha Stevenson AST [Catalytic activity/Vol] 18 U/L Normal 15-37 [facility] Comment on above: Performed By: #### E RUR #### [facility] [address] [address] [address] Pratibha Stevenson Bilirubin [Mass/Vol] 0.5 mg/dL Normal 0.2-1.0 [facility] Comment on above: Performed By: #### E RUR #### [facility] [address] [place] [address] Dr. Pratibha Stevenson Calcium [Mass/Vol] 9.2 mg/dL Normal 8.5-10.1 [facility] Comment on above: Performed By: #### E RUR #### [facility] [address] [address] [address] Pratibha Stevenson Chloride [Moles/Vol] 101 mmol/L Normal 98-107 [facility] Comment on above: Performed By: #### E RUR #### [facility] [address] [address] [address] Pratibha Stevenson CO2 [Moles/Vol] 24.7 mmol/L Normal 21.0-32.0 [facility] Comment on above: Performed By: #### E RUR #### [facility] [address] [address] [address] Pratibha Stevenson Creatinine [Mass/Vol] 1.20 mg/dL Normal 0.70-1.30 [facility] Comment on above: Performed By: #### E RUR #### [facility] [address] [address] [address] Pratibha Stevenson EGFR-AF BARBADIAN >60 Normal >=60 [facility] Comment on above: Performed By: #### E RUR #### [facility] [address] [address] [address] Pratibha Stevenson EGFR-NON AF BARBADIAN >60 Normal >=60 [facility] Comment on above: Performed By: #### E RUR #### [facility] [address] [address] [address] Pratibha Stevenson Globulin (S) [Mass/Vol] 3.1 g/dL Normal [facility] Comment on above: Performed By: #### E RUR #### [facility] [address] [address] [address] Pratibha Stevenson Glucose [Mass/Vol] 128 mg/dL Critically high 74-106 T [facility] Comment on above: Performed By: #### E RUR #### [facility] [address] [address] [address] Pratibha Stevenson Potassium [Moles/Vol] 3.5 mmol/L Normal 3.5-5.1 [facility] Comment on above: Performed By: #### E RUR #### [facility] [address] [address] [address] Pratibha Stevenson Protein [Mass/Vol] 7.3 g/dL Normal 6.4-8.2 [facility] Comment on above: Performed By: #### E RUR #### [facility] [address] [address] [address] Pratibha Stevenson Sodium [Moles/Vol] 135 mmol/L Critically low 136-[address] [facility] Comment on above: Performed By: #### E RUR #### [facility] [address] [address] [address] Pratibha Stevenson Urea nitrogen [Mass/Vol] 10.0 mg/dL Normal 7.0-18.0 [facility] Comment on above: Performed By: #### E RUR #### [facility] [address] [address] [address] Pratibha Stevenson Urea nitrogen/Creatinine [Mass ratio] 8.3 mg/mg Normal [facility] Comment on above: Performed By: #### E RUR #### [facility] [address] [address] [address] Pratibha Stevenson Screenson 07-22-2022 Screens [id number]. 00CD:127 Normal [facility] Screens [id number]. 00CD:127 Normal [facility] Patient Educationon 07-22-19 Patient Education Urology [...] Rhubarb. ? Beets. ? Potato chips and [place] fries. ? Nuts. ? If you regularly take a diuretic medicine, make sure to eat at least 1?2 fruits or vegetables high in potassium each day. These include: ? Avocado. ? Banana. ? Watkins, prune, carrot, or tomato juice. ? Baked [...] dr (more content not included)... Normal [facility] Urology Office/Clinic Noteon 07-21-2022 Urology Office/Clinic Note Chief Complaint pt here for a hospital f/u for kidney stones HPI Staff Pt is a 31 yr old Male here today for a hospital f/u from [facility] for a kidney stone. CT scan done 07/20/22 shows Bilateral nonobstructive renal calculi. No hydronephrosis or hydroureter hepatomegaly. Pts previous DX: kidney stone, ureteral stone. IPSS 26. Pt states he started feeling pain on Monday in the right upper back area and presented to the ER on Monday. Pt had CT scans done at [facility]. Pt states the pain is now moving [...] of urinary calculi) Urology consult 05/08/22 at [facility] due to 4-5 mm Ureteral Stone [...] calculus (05/08/2022) (more content not included)... Normal [facility] Comment on above: Result Comment: Elec tronically Signed By: Shirley Murrell MD\.br\Date and Time Signed: 07/21/22 16:55 EDT\.br\Electronically Co-Signed By: Shalini Macias\.br\Date and Time Co-Signed: 07/21/22 09:40 EDT CBC AUTO DIFFon 07-20-2022 BASO # 0.1 103/ul Normal 0.0-0.1 [facility] Comment on above: Performed By: #### C BC #### [facility] [address] [place] [address] Dr. Pratibha Stevenson Basophils/100 WBC (Bld) 0.7 % Normal 0.2-2.0 [facility] Comment on above: Performed By: #### C BC #### [facility] [address] [place] [address] Dr. Pratibha Stevenson EO # 0.2 103/ul Normal 0.0-0.7 [facility] Comment on above: Performed By: #### C BC #### [facility] [address] [place] [address] Dr. rPatibha Stevenson Eosinophils/100 WBC (Bld) 2.4 % Normal 0.9-7.0 [facility] Comment on above: Performed By: #### C BC #### [facility] [address] [place] [address] Dr. Pratibha Stevenson Erythrocyte distribution width (RBC) [Ratio] 12.4 % Normal 11.0-15.0 [facility] Comment on above: Performed By: #### C BC #### [facility] [address] [place] [address] Dr. Pratibha Stevenson Hematocrit (Bld) [Volume fraction] 45.8 % Normal 42.0-54.0 [facility] Comment on above: Performed By: #### C BC #### [facility] [address] [place] [address] Dr. Pratibha Stevenson Hemoglobin (Bld) [Mass/Vol] 15.6 g/dL Normal 14.0-18.0 [facility] Comment on above: Performed By: #### C BC #### [facility] [address] [place] [address] Dr. Pratibha Stevenson IG # 0.03 10e3/ul Normal 0.00-0.03 [facility] Comment on above: Performed By: #### C BC #### [facility] [address] [place] [address] Dr. Pratibha Stevenson IG % 0.4 % Normal 0.0-0.5 [facility] Comment on above: Performed By: #### C BC #### [facility] [address] [place] [address] Dr. Pratibha Stevenson LYMPH # 3.0 103/ul Normal 1.2-3.8 [facility] Comment on above: Performed By: #### C BC #### [facility] [address] [place] [address] Dr. Pratibha Stevenson Lymphocytes/100 WBC (Bld) 34.7 % Normal 20.5-60.0 [facility] Comment on above: Performed By: #### C BC #### [facility] [address] [place] [address] Dr. Pratibha Stevenson MANUAL DIFF REQ NO Normal [facility] Comment on above: Performed By: #### C BC #### [facility] [address] [place] [address] Dr. Pratibha Stevenson MCH (RBC) [Entitic mass] 31.3 pg Normal 25.9-34.0 [facility] Comment on above: Performed By: #### C BC #### [facility] [address] [place] [address] Dr. Pratibha Stevenson MCHC (RBC) [Mass/Vol] 34.1 g/dL Normal 29.9-35.2 [facility] Comment on above: Performed By: #### C BC #### [facility] [address] [place] [address] Dr. Pratibha Stevenson MCV (RBC) [Entitic vol] 92.0 fL Normal 80.0-94.0 [facility] Comment on above: Performed By: #### C BC #### [facility] [address] [place] [address] Dr. Pratibha Stevenson MONO # 0.5 103/ul Normal 0.3-0.8 [facility] Comment on above: Performed By: #### C BC #### [facility] [address] [place] [address] Dr. Pratibha Stevenson Monocytes/100 WBC (Bld) 5.9 % Normal 1.7-12.0 [facility] Comment on above: Performed By: #### C BC #### [facility] [address] [place] [address] Dr. Pratibha Stevenson NEUT # 4.8 103/ul Normal 1.4-6.5 [facility] Comment on above: Performed By: #### C BC #### [facility] [address] [place] [address] Dr. Pratibah Stevenson Neutrophils/100 WBC (Bld) 55.9 % Normal 43.0-75.0 [facility] Comment on above: Performed By: #### C BC #### [facility] [address] [place] [address] Dr. Pratibha Stevenson Platelet mean volume (Bld) [Entitic vol] 10.0 fL Normal 9.5-13.5 [facility] Comment on above: Performed By: #### C BC #### [facility] [address] [place] [address] Dr. Pratibha Stevenson PLT 243 103/ul Normal 150-450 [facility] Comment on above: Performed By: #### C BC #### [facility] [address] [place] [address] Dr. Pratibha Stevenson RBC 4.98 106/ul Normal 4.70-6.10 [facility] Comment on above: Performed By: #### C BC #### [facility] [address] [place] [address] Dr. Pratibha Stevenson WBC 8.5 103/ul Normal 4.0-11.0 [facility] Comment on above: Performed By: #### C BC #### [facility] [address] [place] [address] ABD/PELVIS WO CONon [...] Date: 2022-07-20 04:12 Normal [facility] URINE PROFILEon 3 Bilirubin Ql (U) Negative Normal NEGATIVE [facility] Comment on above: Performed By: #### L ACT #### [facility] [address] [place] [address] Dr. Pratibha Stevenson Clarity (U) CLEAR Normal CLEAR [facility] Comment on above: Performed By: #### L ACT #### [facility] [address] [place] [address] Dr. Pratibha Stevenson Color (U) LT. YELLOW Normal YELLOW [facility] Comment on above: Performed By: #### L ACT #### [facility] [address] [place] [address] Dr. Pratibha Stevenson ERUAHRanjan A micrscopic examination will be performed if indicated. Normal [facility] Comment on above: Performed By: #### L ACT #### [facility] [address] [place] [address] Dr. Pratibha Stevenson Glucose Ql (U) Negative Normal NEGATIVE [facility] Comment on above: Performed By: #### L ACT #### [facility] [address] [place] [address] Dr. Pratibha Stevenson Hemoglobin Ql (U) Negative Normal NEGATIVE [facility] Comment on above: Performed By: #### L ACT #### [facility] [address] [place] [address] Dr. Pratibha Stevenson Ketones Ql (U) Negative Normal NEGATIVE [facility] Comment on above: Performed By: #### L ACT #### [facility] [address] [place] [address] Dr. Pratibha Stevenson LEUKOCYTES Negative Normal NEGATIVE [facility] Comment on above: Performed By: #### L ACT #### [facility] [address] [place] [address] Dr. Pratibha Stevenson Nitrite Ql (U) Negative Normal NEGATIVE [facility] Comment on above: Performed By: #### L ACT #### [facility] [address] [place] [address] Dr. Pratibha Stevenson pH (U) 6.0 [pH] Normal 5-9 [facility] Comment on above: Performed By: #### L ACT #### [facility] [address] [place] [address] Dr. Pratibha Stevenson SPEC GRAVITY <=1.005 Abnormal 1.005-<=1.025 [facility] Comment on above: Performed By: #### L ACT #### [facility] [address] [place] [address] Dr. Pratibha Stevenson UA PROTEIN Negative Normal NEGATIVE/ TRACE [facility] Comment on above: Performed By: #### L ACT #### [facility] [address] [place] [address] Dr. Pratibha Stevenson UR MICRO IND NOT INDICATED Normal [facility] Comment on above: Performed By: #### L ACT #### [facility] [address] [place] [address] Dr. Pratibha Stevenson Urobilinogen Qn (U) 0.2 {Butch'U}/dL Normal 0.2 - 1. 0 [facility] Comment on above: Performed By: #### L ACT #### [facility] [address] [place] [address] Dr. Pratibha Stevenson LACTATE/LACTIC ACIDon 2022 Lactate [Moles/Vol] 0.8 mmol/L Normal 0.4-2.0 [facility] Comment on above: Performed By: #### L ACT #### [facility] [address] [place] [address] Dr. Pratibha Stevenson PROF 14(COMP METB)on 023 Albumin [Mass/Vol] 4.3 g/dL Normal 3.4-5.0 [facility] Comment on above: Performed By: #### E RUR #### [facility] [address] [place] [address] Dr. Pratibha Stevenson Albumin/Globulin [Mass ratio] 1.3 {ratio} Normal [facility] Comment on above: Performed By: #### E RUR #### [facility] [address] [place] [address] Dr. Pratibha Stevenson ALP [Catalytic activity/Vol] 94 U/L Normal 46-116 [facility] Comment on above: Performed By: #### E RUR #### [facility] [address] [place] [address] Dr. Pratibha Stevenson ALT [Catalytic activity/Vol] 23 U/L Normal 16-63 [facility] Comment on above: Performed By: #### E RUR #### [facility] [address] [place] [address] Dr. Pratibha Stevenson Anion gap [Moles/Vol] 10.5 mmol/L Normal [facility] Comment on above: Performed By: #### E RUR #### [facility] [address] [place] [address] Dr. Pratibha Stevenson AST [Catalytic activity/Vol] 21 U/L Normal 15-37 [facility] Comment on above: Performed By: #### E RUR #### [facility] [address] [place] [address] Dr. Pratibha Stevenson Bilirubin [Mass/Vol] 0.5 mg/dL Normal 0.2-1.0 [facility] Comment on above: Performed By: #### E RUR #### [facility] [address] [place] [address] Dr. Pratibha Stevenson Calcium [Mass/Vol] 9.3 mg/dL Normal 8.5-10.1 [facility] Comment on above: Performed By: #### E RUR #### [facility] [address] [place] [address] Dr. Pratibha Stevenson Chloride [Moles/Vol] 102 mmol/L Normal 98-107 [facility] Comment on above: Performed By: #### E RUR #### [facility] [address] [place] [address] Dr. Pratibha Stevenson CO2 [Moles/Vol] 26.2 mmol/L Normal 21.0-32.0 [facility] Comment on above: Performed By: #### E RUR #### [facility] [address] [place] [address] Dr. Pratibha Stevenson Creatinine [Mass/Vol] 1.18 mg/dL Normal 0.70-1.30 [facility] Comment on above: Performed By: #### E RUR #### [facility] [address] [place] [address] Dr. Pratibha Stevenson EGFR-AF BARBADIAN >60 Normal >=60 [facility] Comment on above: Performed By: #### E RUR #### [facility] [address] [place] [address] Dr. Pratibha Stevenson EGFR-NON AF BARBADIAN >60 Normal >=60 [facility] Comment on above: Performed By: #### E RUR #### [facility] [address] [place] [address] Dr. Pratibha Stevenson Globulin (S) [Mass/Vol] 3.2 g/dL Normal [facility] Comment on above: Performed By: #### E RUR #### [facility] [address] [place] [address] Dr. Pratibha Stevenson Glucose [Mass/Vol] 115 mg/dL Critically high 74-[address] [facility] Comment on above: Performed By: #### E RUR #### [facility] [address] [place] [address] Dr. Pratibha Stevenson Potassium [Moles/Vol] 3.7 mmol/L Normal 3.5-5.1 [facility] Comment on above: Performed By: #### E RUR #### [facility] [address] [place] [address] Dr. Pratibha Stevenson Protein [Mass/Vol] 7.5 g/dL Normal 6.4-8.2 [facility] Comment on above: Performed By: #### E RUR #### [facility] [address] [place] [address] Dr. Pratibha Stevenson Sodium [Moles/Vol] 135 mmol/L Critically low 136-[address] [facility] Comment on above: Performed By: #### E RUR #### [facility] [address] [place] [address] Dr. Pratibha Stevenson Urea nitrogen [Mass/Vol] 11.0 mg/dL Normal 7.0-18.0 [facility] Comment on above: Performed By: #### E RUR #### [facility] [address] [place] [address] Dr. Pratibha Stevenson Urea nitrogen/Creatinine [Mass ratio] 9.3 mg/mg Normal [facility] Comment on above: Performed By: #### E RUR #### [facility] [address] [place] [address] Dr. Pratibha Stevenson TROPONIN, HIGH SENSITIVITYon 07-20-2022 HSTROP 5.0 pg/mL Normal 4.0-76.1 [facility] Comment on above: Result Comment: CUT- OFF POINTS HAVE BEEN ESTABLISHED BASED ON THE FOURTH UNIVERSAL DEFINITIONS OF MYOCARDIAL INFARCTION. THE UPPER REFERENCE LIMIT (URL) OF TROPONIN, DEFINED THE 99TH PERCENTILE OF cTnI DISTRIBUTION IN A REFERENCE POPULATION, HAS BEEN CONFIRMED THE DECISION THRESHOLD FOR AL DIAGNOSIS. Performed By: #### E RUR #### [facility] [address] [place] [address] Dr. Pratibha Stevenson Formson 07-15-2022 Forms [id number]#1.0 0CD:127 Normal [facility] Screenson 07-15-2022 Screens [id number]#1.0 0CD:127 Normal [facility] Screens [id number]#1.0 0CD:127 Normal [facility] Patient Educationon 07-14-19 Patient Education Urology [...] Rhubarb. ? Beets. ? Potato chips and [place] fries. ? Nuts. ? If you regularly take a diuretic medicine, make sure to eat at least 1?2 fruits or vegetables high in potassium each day. These include: ? Avocado. ? Banana. ? Watkins, prune, carrot, or tomato juice. ? Baked [...] dr (more content not included)... Normal [facility] Urology Office/Clinic Noteon 07-13-2022 Urology Office/Clinic Note Chief Complaint Pt is here for PO stent removal HPI Staff Ethan is a 31 y.o. male new patient here for [facility] ER follow up. Urology consult done 05/08/22 @ [facility] due to 4-5mm Ureteral Stone. S/P Lt [...] yo male new patient following up to [facility] ER. IPSS 13. MARGOTH 14. 1. Ureteral stone (N20.1: Calculus of ureter) Urology consult 05/08/22 at [facility] due to 4-5 mm Ureteral Stone [...] 12/26/1997 Recor (more content not included)... Normal [facility] Comment on above: Result Comment: Elec tronically Signed By: Handy WILEY, Shirley Menchaca\.br\Date and Time Signed: 07/13/22 16:53 EDT\.br\Electronically Co-Signed By: Shalini Macias\.br\Date and Time Co-Signed: 07/13/22 10:29 EDT RAD - MISCon 07-11-2022 RAD - MISC [id number]#1.0 0CD:127 Normal [facility] RAD - Ultrasound Reporton RAD - Ultrasound Report [id number]#1.0 0CD:127 Normal [facility] US KIDNEYSon 07-06-2022 US KIDNEYS EXAMINATION: [...] by: RAMO BLAKE Date: 2022-07-06 11:14 Normal [facility] XR KUB 1 VIEWon 07-06-2022 XR KUB [...] by: SAUMYA MARSH Date: 2022-07-06 11:57 Normal [facility] Coding Summary.on 05-30-2022 Coding Summary. CD:[id number] Gh 0bWw+PGhlYWQ+ZC7LEABuI 16pwDYysP6DZ9fPDN5RMIS KXSVEVC1PJN9vnBX8UUqvW 2VybiAv IfckuTGpJW42DGy0APQ0vI lbJFfgdI5gpAJiQ5w7WuYi TL26oF04LRnfXMAvQoH2Sv ZpbjsgbWFy L6nvJrEyzTXvAlq+PHRhYm xlIHdpZHRoPScxMDAlJyBz pJozHX7vJd0tIGMbPHTuxY xhcHNlOiBj t8gjMSTuOWxeRD1upXhfJ2 IjxPW5WRWlx9i2Pb87tWU+ LWUtKXX3zKetFHuvo812Gv Cmg5hvRHS2 pYZtOUjqMDO4Z18nh4R7CW SkFBOvNSV4tZP2aZ0mwXgz gkrtL5UgzVXpAuE0WZI3jX JlfW2shWtf ohzlhL2lSmk+T53NQS7WNZ MPKQ5IWkh1L8IbMojxfHC+ WI96ADYnHD05hCOjpZEzs7 gjwSl2QaCe NIKjREU3hHjrBTvap3JgEY MwT76shBEhg1S7XGMeyZqt vEMdElSlbPX8lI5gVYrdrz jjl1kidsup Jdueb5orvt58zM43Z76ySE wrCLZwENJ2XHLbBTDlcRut ds2joL6qCh1+TZwrz1xbz6 bajIe3JoEh XMDweaFvmGqhGQL7o2GyOj 50V0FrrPilv3WbDrh8ty51 dWMbx0G1dBZ0WMrnLBDfqM 8iLTcfFrJ3 CWSrMjAdyG13vGQrBQzfPd 1jaLsyoQewNF1oZMUfawsj CPCdwN1yOMRqqRHymYngKJ 4wNTBpbjtm q573GtUsYBL8UUXbnZBrP1 NqmF0zHsDuTUWrCECpR3Qi zZIuBYcrI548NZolHiO6IW XusjBbM5Jo EFKsePfgDwF4q6X1Oa7Cu4 QcsxslCWK8XMkiEGOjMvHt UvOzUsS1N3FsXln6FWRjoB yrPX7wQ2Zu VQOpyxmcjejqdZI7PXScVW JoxN33rPRtSOowAm4ln3W1 l395WXAwNIKrgR13Qt2qiE ogMTBwdCBU qK9puojat3klgvivWvOaBI ZcDWa3AIq1BXEoxUayJcAq TGF3OiU6FOV3mRZfqA8mvH pwolmzmO6l Oyc+N08qtP3xFSR3UGF8wz psKHZnucPyOZ92IR94A8Os PjwvdGFibGU+PGRpdiBzdH rfCW4bGtCl j1oni1JzULmoW0ItMOZqTC nlRug6QQBsLZD0yXS5rA4c WZAdYPdcq7Z6rYW8K0Ppnb Xttb0hh2xp YEFyPCyaN74ntQEdu8J2ZC BkpXN8FGGupFnhDpVptD36 Oyc+DPEvtCncx9QjAwkro5 gwj3mkaIw4 IpIbSNXvcgBjgDkmWHS6c3 WlEo67Z63pQFasNKDhUTUe FAPvUGMuuMqsqb8etF8cDt 8+PGNvbCB3 aHG4fV5tZXPdZfB6VXdtY6 38SxVteVEwTryaj8svg1jj aJd5ItSaGBNpxyIhkXxjIK D1m4AuBc51 L28fKWiiSGMhTZZoVWGzUO YexGopat3muV1eQt9+PC9j f4axhn25aB30mVU+PHRkIH L0vRgiCXwv LDQbuD3fGWvvWaS4IIUcQf VesB15uCSaIKknGo0nwOgp dEjvWR2oCMIwnigpj271Cm Rpj8ozSSLz xGJkRYlsPNJ4K44hk8W1PP EuWOOtHYO2rYX7kV2jcYzk bjogbGVmdDsgdmVydGljYW fzZMlrI374 IHRvcDsnPlBhdGllbnQgTm IrBDw7V6KvFpo6QTRaqEmv KQ5ywHSwKCdtMq6grYamcC ssWR9hGBQl whqry882TaGnj2knMNTtrV SfKAfyZRX8D50im4X0MDIs UBGzJUX5fCP5dA9efXvoeu ogbGVmdDsg fbCzxLxlETnzQWnnS091ME RvcDsnPkJpcnRoIERhdGU6 VO97XE43xJSem5H9jVY2L8 BhZGRpbmct tzfpqIQ5YQOxKAPydA89Nj 1ifTsdMc3qQEXyEYC2RYVt pGRyZ7YuuB2tWmQtLWXfKA NfM6BatCDr EPqiO423PNghDyE5SSWyyd VwZ2DkOZUuqYfoGxR8l4C9 Be0BB1J2XO56MQ09hBYzh1 Y7cCD2Y6Ez UQOamwgrlgkpuFD0QSRuIT HkzS85Em2mmQahQb8dDDZy SSB5VGAvnEPkK8YinW6hWi AjMDAwMDAw F5TfrYTiCIagF106CJjgBr G5DKUfghUqK0DdNJEjjZzz YjV3z9D4Xz4GOCc9GQ97JV 19nUSxl1S3 kED5N9IqMNTszgknzqrfaI M6YWFlNKTjjH43Fo7fdHmi Fj4kGIPvSNQ6RPZsxTPsH6 TvsR1qHgIn BTFmZSAlY7DfeLLyJJctN6 12UProBjJ6ASPhumZuB7Jt MWLhpDyqYlA3q1Z2Uo2IUA LmRT32TBB7 hUC6EL08XV08X4ThZifwvD FibGU+PHRhYmxlIHdpZHRo XGmhCSFaFmMlbIycMD6mHm 9yZGVyLWNv jPmrtHBqUiYwf0grSFFvPC txZB7enEgvW9HoxTL1LKIx y1b2Xi80H74qL8KtnUY+PG DgcLX9gEO6 yU0zFuQiRmJ7WIxjN986Vf FyvSVkDrscp4xnd2nqmMe6 PkF5JFBjgvJipDqlGTF1p6 KbNl32X29l IHdpZHRoPSIxNSUiIHZhbG tnfl0ywC7dRc0+PGNvbCB3 uRF7mA2cCuIcNiD2FAjhQ0 49InRvcCIv Owsjj1oru6tqaYo4PpJvVT GiefXraBfuMCU2r5LcPz12 S6HzeVmnp4JfEww9ly57nY Dfc8M1hDR0 V6WlSTRrffnazMRdjSleMJ 3oZAImjyhlVGQkwN5lGTTf B3e7HgHvSeP7VRfzN7Edfk I1PTAupFIz RRabUYD9E87tm8I3LNMvZD QoEXK9dQC7uN4rfCpjxvym bGVmdDsgdmVydGljYWwtYW qkA626YMBf mVtlVDYdeB9rJZEunZPgpR peVE5rUNEygbnvHeORBMJV RlyjPFLBQ27qSVzdyCK+PH BgQOH2oCez WHooMPPomE2yLGVkN1h8Yh NsKzX5XNzzF8ScILNiiekc Gp58dR8dXnHrPeH3UDriG5 HafuR1LLZk kYGxFTbuUKA1Q25re0U3HA KjRTBbANM3hWY4hF5tkFks bjogbGVmdDsgdmVydGljYW coLOolG185 PWNmwTakWiD2CjY5HhV6AI P0K1WoIkq1YSJtuSgmGN9k rJIaSLyzEe0xiYjnnRioXB 4wNTBpbjtw DUDceB1uBQFsdMWksWiyLT 4cJWCduwjsh881RgWuRYZ0 QROgtJGkH2BlfW7iVlShDI QvQFQoH0Cx dVLsVIbvS040FYdkHkM7OG PbvaZkF0PtELYwxYupXrX4 j8K0Ip8qEINTTNMpoplaoH Q+PHRkIHN0 vUfxPYpbCQEusQ0vNBVnD3 a5TwLbJwR6LXzsU9VdAPKc mcqaSr31xL3dEwEmWtL6FP qbY0AariR0 XMYzyAMgBYvdKVH3M77th8 B5AFOzUXZeIMN5qAA4xF5q bGlnbjogbGVmdDsgdmVydG ljYWwtYWxp I943BHGzwXigEp3aeHL4O1 PfUxv5SMWobGutYO8hzNFf EQetGg0fnOfqhOfmSU5wTQ BpbjtwYWRk aL4pNVHvaQMtlVeqKB9cEG Mkzfqtx155KhEkSCZ3QNXk yKYiN3QepJ0lFkXaDBMmSU JkC7UinMKa PYzsN805ZNleNmY7MBHaju DlQ0FoFYVnwZlxZgX1w1N9 Tv0OfZIcKPJrXK96QJ77WL 98M8NpWnln dGFibGU+PHRhYmxlIHdpZH IvYAiiGWBfMoBhwCtdZJ0r Ax8wTCQrGIEcpPhutWSkQm Jug1rpZEVv LPxgVS8nyHvaJ5DsmKK7PB Zjg3n4Mi26A89wL6SfmEB+ VNDyfTN4bNJ9dF2wOlGqQe W5WImyK413 ZtYekAWmHhztj6gfg7pbhA c1WfWrKHNvpiQdyRdgOMT0 i4IzGc73O80eHPxiFTRxWY IyMCUiIHZh gTmhvf9ybS4tOl4+PGNvbC L5jTG0aD4cMaZwHfT1OFhb H638IxWetBPqUddqZ15yO2 JvdXA+PHRy Vfm7AFJgvKivYM2unSUwNP jtMz6zTIH2HbPrYxKaTFif L0PmQOUzrpjiqmhvwTC6FA RtBPYmdL21 Xd0wbJeoIf6wKFOdWHE7GX NylREiT0JgkG4zAsAlFROk SQTaY8BbtCGvUPhiA873HW nrCqJ5FNJb xiDrM9WyJKKdlPxaWfS8q3 J9Dk7PoNactKMgXH8uQaVe XMo6F8EdMhk7UQJwoTrfKG 0ncGFkZGlu Ki9xnDhqrHciFZ2kDJDymq gpf066TaNgf4ijKAWcwRHn DVefHAE9X64ko6C9IIJhZH KkEFD1eID8 dE9nbIrkoekjsRPsqXqvxw TlfCcjOApfLLjaN779LSLs sRozUyVVVwj0U2IaCla9II LasRqdGR4h cZMzMZelLr6tjFpsyQygEE 0oCYHbzmctm904WiIkj3wn CMLatCYnBVvgAJR1Z39hx5 P3AUPsXUXf RDU1bCQ3kO5xeJcyypjgtX VmdDsgdmVydGljYWwtYWxp O927YUSlaWnjVt3TEjk9N3 ByTuj6BHPs aFrjFJ9fdLHxPKvfIo0wsH mgeHfqGI0lESKwxgbeo021 VpZhf8hsSTTsdOUgLQosYA O1J06nv1D4 ANHbANEbLMJ8hIR6lC3mcA lnbjogbGVmdDsgdmVydGlj JOizEWypW736NJXovVazCv BheWVyOjwv dGQ+TF84yc70A9EwLvnrMd p4AUEkBXB7sLS2jT0qESAs IBjxx5F1rYI6F6XfhfTpxr 3dt4qnFHDn ZTog (more content not included)... Normal [facility] Operative Reporton Operative Report Patient: AUDREY DONALD L Age: 31 years Sex: Male : 1990 Associated Diagnoses: None Author: Shirley Murrell MD Procedure Operative Information Details: Date/ Time: 05/23/2022 10:00:00. Pre-Op Dx: Kidney stone (ODR07-ES N20.0, Billing Diagnosis, Medical), Foreign Body in [...] serum labs and 24-hour urine . Normal [facility] Comment on above: Result Comment: Elec tronically Signed By: Shirley Murrell MD\.br\Date and Time Signed: 05/27/22 17:07 EST Consent for Procedure/Surger yon 05-26-2022 Consent for Procedure/Surgery [id number]#1.0 0CD:127 [facility] IntraOperative Documentson 0 05-26-2022 IntraOperative Documents [id number]#1.0 0CD:127 [facility] Formson 05-24-2022 Forms [id number]#1.0 0CD:127 [facility] Consent for Treatmenton 05-02 Consent for Treatment [id number]#1.0 0CD:127 [facility] Main OR Intraoperative Recor don 05-23-2022 Main OR Intraoperative Record IntraOp Document Type FTURO Summary Primary Physician: Shirley Murrell MD Finalized Date/Time: 05/23/22 10:14:49 Pt. Name: KIRBYLESLYETHAN D.O.B./Sex: 1990 Male Med Rec #: [id number] Physician: Shirley Murrell MD Financial #: [id number] Pt. Type: O Room/Bed: / Admit/Disch: 05/23/22 [...] Nereida Cline Role Performed Surgeon - Primary Judicial Clerk - Primary Scrub - Primary Time In [...] NICOLE Eason RN, Ruthann 05/23/22 10:14 Normal [facility] Main OR Preoperative Recordo n 05-23-2022 Main OR Preoperative Record Holding Area Document Type FTURO Summary Primary Physician: Shirley Murrell MD Finalized Date/Time: 05/23/22 10:11:23 Pt. Name: ETHAN DONALD/Sex: 1990 Male Med Rec #: [id number] Physician: Shirley Murrell MD Financial #: [id number] Pt. Type: O Room/Bed: / Admit/Disch: 05/23/22 [...] Comment: difficulty voiding, not Skin Integrity Intact, [place], Warm, & feeling empty, pain in Dry [...] 09:28 NICOLE Eason RN, Ruthann 05/23/22 10:11 [facility] Insurance Correspondence Off iceon 05-17-2022 Insurance Correspondence Office [id number]#1. 00CD:127 [facility] ED Note-Physicianon 05-14-19 ED Note-Physician [id number]#1.0 0CD:127 [facility] RAD - CT Reporton 05-14-2022 RAD - CT Report [id number]#1. 00CD:127 [facility] RAD - CT Report [id number]#1. 00CD:127 [facility] RAD - MISCon 05-14-2022 RAD - MISC [id number] 04 [id number]#1. 00CD:127 [facility] RAD - MISC [id number]#1. 00CD:127 [facility] RAD - MISC [id number] 04 [id number]#1. 00CD:127 Normal [facility] RAD - Ultrasound Reporton RAD - Ultrasound Report [id number]#1. 00CD:127 Normal [facility] AMYLASEon 05-12-2022 Amylase [Catalytic activity/Vol] 39 U/L Normal 25-115 [facility] Comment on above: Performed By: #### E RUR #### [facility] [address] [address] [address] Pratibha Stevenson CBC AUTO DIFFon 05-12-2022 BASO # 0.0 103/ul Normal 0.0-0.1 [facility] Comment on above: Performed By: #### L ACT #### [facility] [address] [place] [address] Dr. Pratibha Stevenson Basophils/100 WBC (Bld) 0.2 % Normal 0.2-2.0 [facility] Comment on above: Performed By: #### L ACT #### [facility] [address] [place] [address] Dr. Pratibha Stevenson EO # 0.0 103/ul Normal 0.0-0.7 [facility] Comment on above: Performed By: #### L ACT #### [facility] [address] [place] [address] Dr. Pratibha Stevenson Eosinophils/100 WBC (Bld) 0.0 % Critically low 0.9-7.0 [facility] Comment on above: Performed By: #### L ACT #### [facility] [address] [place] [address] Dr. Pratibha Stevenson Erythrocyte distribution width (RBC) [Ratio] 11.7 % Normal 11.0-15.0 [facility] Comment on above: Performed By: #### L ACT #### [facility] [address] [place] [address] Dr. Pratibha Stevenson Hematocrit (Bld) [Volume fraction] 43.0 % Normal 42.0-54.0 [facility] Comment on above: Performed By: #### L ACT #### [facility] [address] [address] [address] Pratibha Stevenson Hemoglobin (Bld) [Mass/Vol] 13.9 g/dL Critically low 14.0-18.0 [facility] Comment on above: Performed By: #### L ACT #### [facility] [address] [address] [address] Pratibha Stevenson IG # 0.03 10e3/ul Normal 0.00-0.03 [facility] Comment on above: Performed By: #### L ACT #### [facility] [address] [address] [address] Pratibha Stevenson IG % 0.3 % Normal 0.0-0.5 [facility] Comment on above: Performed By: #### L ACT #### [facility] [address] [address] [address] Pratibha Stevenson LYMPH # 0.8 103/ul Critically low 1.2-3.8 [facility] Comment on above: Performed By: #### L ACT #### [facility] [address] [address] [address] Pratibha Stevenson Lymphocytes/100 WBC (Bld) 8.6 % Critically low 20.5-60.0 [facility] Comment on above: Performed By: #### L ACT #### [facility] [address] [address] [address] Pratibha Stevenson MANUAL DIFF REQ NO Normal [facility] Comment on above: Performed By: #### L ACT #### [facility] [address] [address] [address] Pratibha Stevenson MCH (RBC) [Entitic mass] 31.0 pg Normal 25.9-34.0 [facility] Comment on above: Performed By: #### L ACT #### [facility] [address] [address] [address] Pratibha Stevenson MCHC (RBC) [Mass/Vol] 32.3 g/dL Normal 29.9-35.2 [facility] Comment on above: Performed By: #### L ACT #### [facility] [address] [address] [address] Pratibha Stevenson MCV (RBC) [Entitic vol] 96.0 fL Critically high 80.0-94.0 [facility] Comment on above: Performed By: #### L ACT #### [facility] [address] [address] [address] Pratibha Stevenson MONO # 0.4 103/ul Normal 0.3-0.8 [facility] Comment on above: Performed By: #### L ACT #### [facility] [address] [address] [address] Pratibha Stevenson Monocytes/100 WBC (Bld) 4.5 % Normal 1.7-12.0 [facility] Comment on above: Performed By: #### L ACT #### [facility] [address] [place] [address] Dr. Pratibha Stevenson NEUT # 8.4 103/ul Critically high 1.4-6.5 [facility] Comment on above: Performed By: #### L ACT #### [facility] [address] [place] [address] Dr. Pratibha Stevenson Neutrophils/100 WBC (Bld) 86.4 % Critically high 43.0-75.0 [facility] Comment on above: Performed By: #### L ACT #### [facility] [address] [place] [address] Dr. Pratibha Stevenson Platelet mean volume (Bld) [Entitic vol] 10.6 fL Normal 9.5-13.5 [facility] Comment on above: Performed By: #### L ACT #### [facility] [address] [place] [address] Dr. Pratibha Stevenson PLT 227 103/ul Normal 150-450 [facility] Comment on above: Performed By: #### L ACT #### [facility] [address] [place] [address] Dr. Pratibha Stevenson RBC 4.48 106/ul Critically low 4.70-6.10 [facility] Comment on above: Performed By: #### L ACT #### [facility] [address] [place], [place] [id number] Dr. Pratibha Stevenson WBC 9.7 103/ul Normal 4.0-11.0 [facility] Comment on above: Performed By: #### L ACT #### [facility] [address] [place], [place] [id number] Dr. Pratibha Stevenson Consent for Procedure/Surger yon 05-12-2022 Consent for Procedure/Surgery [id number]#1.0 0CD:127 Normal [facility] LIPASEon 05-12-2022 Lipase [Catalytic activity/Vol] 110.0 U/L Normal 73.0-393.0 [facility] Comment on above: Performed By: #### E RUR #### [facility] [address] [place] [address] Dr. Pratibha Stevenson Operative Reporton Operative Report [id number] 0CD:127 Normal [facility] Operative Report [id number]#1.0 0CD:127 Normal [facility] Comment on above: Other Comment: SAMMI PATHAK PAGES PROF 14(COMP METB)on 023 Albumin [Mass/Vol] 3.3 g/dL Critically low 3.4-5.[address] [facility] Comment on above: Performed By: #### E RUR #### [facility] [address] [place] [address] Dr. Pratibha Stevenson Albumin/Globulin [Mass ratio] 1.2 {ratio} Normal [facility] Comment on above: Performed By: #### E RUR #### [facility] [address] [place] [address] Dr. Pratibha Stevenson ALP [Catalytic activity/Vol] 68 U/L Normal 46-116 [facility] Comment on above: Performed By: #### E RUR #### [facility] [address] [place] [address] Dr. Pratibha Stevenson ALT [Catalytic activity/Vol] 27 U/L Normal 16-63 [facility] Comment on above: Performed By: #### E RUR #### [facility] [address] [address] [address] Pratibha Stevenson Anion gap [Moles/Vol] 10.4 mmol/L Normal [facility] Comment on above: Performed By: #### E RUR #### [facility] [address] [address] [address] Pratibha Stevenson AST [Catalytic activity/Vol] 25 U/L Normal 15-37 [facility] Comment on above: Performed By: #### E RUR #### [facility] [address] [address] [address] Pratibha Stevenson Bilirubin [Mass/Vol] 0.5 mg/dL Normal 0.2-1.0 [facility] Comment on above: Performed By: #### E RUR #### [facility] [address] [address] [address] Pratibha Stevenson Calcium [Mass/Vol] 8.8 mg/dL Normal 8.5-10.1 [facility] Comment on above: Performed By: #### E RUR #### [facility] [address] [address] [address] Pratibha Stevenson Chloride [Moles/Vol] 105 mmol/L Normal 98-107 [facility] Comment on above: Performed By: #### E RUR #### [facility] [address] [address] [address] Pratibha Stevenson CO2 [Moles/Vol] 26.5 mmol/L Normal 21.0-32.0 [facility] Comment on above: Performed By: #### E RUR #### [facility] [address] [address] [address] Pratibha Stevenson Creatinine [Mass/Vol] 1.15 mg/dL Normal 0.70-1.30 [facility] Comment on above: Performed By: #### E RUR #### [facility] [address] [address] [address] Pratibha Stevenson EGFR-AF BARBADIAN >60 Normal >=60 [facility] Comment on above: Performed By: #### E RUR #### [facility] [address] [address] [address] Pratibha Stevenson EGFR-NON AF BARBADIAN >60 Normal >=60 [facility] Comment on above: Performed By: #### E RUR #### [facility] [address] [address] [address] Pratibha Stevenson Globulin (S) [Mass/Vol] 2.7 g/dL Normal [facility] Comment on above: Performed By: #### E RUR #### [facility] [address] [address] [address] Pratibha Stevenson Glucose [Mass/Vol] 119 mg/dL Critically high 74-106 [facility] Comment on above: Performed By: #### E RUR #### [facility] [address] [place] [address] Dr. Pratibha Stevenson Potassium [Moles/Vol] 3.9 mmol/L Normal 3.5-5.1 [facility] Comment on above: Performed By: #### E RUR #### [facility] [address] [address] [address] Pratibha Stevenson Protein [Mass/Vol] 6.0 g/dL Critically low 6.4-8.[address] [facility] Comment on above: Performed By: #### E RUR #### [facility] [address] [place] [address] Dr. Pratihba Stevenson Sodium [Moles/Vol] 138 mmol/L Normal 136-145 [facility] Comment on above: Performed By: #### E RUR #### [facility] [address] [address] [address] Pratibha Stevenson Urea nitrogen [Mass/Vol] 7.0 mg/dL Normal 7.0-18.0 [facility] Comment on above: Performed By: #### E RUR #### [facility] [address] [place] [address] Dr. Pratibha Stevenson Urea nitrogen/Creatinine [Mass ratio] 6.1 mg/mg Normal [facility] Comment on above: Performed By: #### E RUR #### [facility] [address] [place] [address] Dr. Pratibha Stevenson XR KUB 1 VIEWon [...] Date: 2022-05-12 06:43 Normal [facility] AMYLASEon 05-11-2022 Amylase [Catalytic activity/Vol] 52 U/L Normal 25-115 [facility] Comment on above: Performed By: #### C MP, GREG, LIPA #### [facility] [address] [place] [address] Dr. Pratibha Stevenson CBC AUTO DIFFon 05-11-2022 BASO # 0.0 103/ul Normal 0.0-0.1 [facility] Comment on above: Performed By: #### C BC #### [facility] [address] [place] [address] Dr. Pratibha Stevenson Basophils/100 WBC (Bld) 0.6 % Normal 0.2-2.0 [facility] Comment on above: Performed By: #### C BC #### [facility] [address] [place] [address] Dr. Pratibha Stevenson EO # 0.2 103/ul Normal 0.0-0.7 [facility] Comment on above: Performed By: #### C BC #### [facility] [address] [place] [address] Dr. Pratibha Stevenson Eosinophils/100 WBC (Bld) 2.3 % Normal 0.9-7.0 [facility] Comment on above: Performed By: #### C BC #### [facility] [address] [place] [address] Dr. Pratibha Stevenson Erythrocyte distribution width (RBC) [Ratio] 11.7 % Normal 11.0-15.0 [facility] Comment on above: Performed By: #### C BC #### [facility] [address] [place] [address] Dr. Pratibha Stevenson Hematocrit (Bld) [Volume fraction] 42.4 % Normal 42.0-54.0 [facility] Comment on above: Performed By: #### C BC #### [facility] [address] [place] [address] Dr. Pratibha Stevenson Hemoglobin (Bld) [Mass/Vol] 14.3 g/dL Normal 14.0-18.0 [facility] Comment on above: Performed By: #### C BC #### [facility] [address] [place] [address] Dr. Pratibha Stevenson IG # 0.01 10e3/ul Normal 0.00-0.03 [facility] Comment on above: Performed By: #### C BC #### [facility] [address] [place] [address] Dr. Pratibha Stevenson IG % 0.2 % Normal 0.0-0.5 [facility] Comment on above: Performed By: #### C BC #### [facility] [address] [place] [address] Dr. Pratibha Stevenson LYMPH # 2.8 103/ul Normal 1.2-3.8 [facility] Comment on above: Performed By: #### C BC #### [facility] [address] [place] [address] Dr. Pratibha Stevenson Lymphocytes/100 WBC (Bld) 41.8 % Normal 20.5-60.0 [facility] Comment on above: Performed By: #### C BC #### [facility] [address] [place] [address] Dr. Pratibha Stevenson MANUAL DIFF REQ NO Normal [facility] Comment on above: Performed By: #### C BC #### [facility] [address] [place] [address] Dr. Pratibha Stevenson MCH (RBC) [Entitic mass] 31.0 pg Normal 25.9-34.0 [facility] Comment on above: Performed By: #### C BC #### [facility] [address] [place] [address] Dr. Pratibha Stevenson MCHC (RBC) [Mass/Vol] 33.7 g/dL Normal 29.9-35.2 [facility] Comment on above: Performed By: #### C BC #### [facility] [address] [place] [address] Dr. Pratibha Stevenson MCV (RBC) [Entitic vol] 92.0 fL Normal 80.0-94.0 [facility] Comment on above: Performed By: #### C BC #### [facility] [address] [place] [address] Dr. Pratibha Stevenson MONO # 0.5 103/ul Normal 0.3-0.8 [facility] Comment on above: Performed By: #### C BC #### [facility] [address] [place] [address] Dr. Pratibha Stevenson Monocytes/100 WBC (Bld) 7.9 % Normal 1.7-12.0 [facility] Comment on above: Performed By: #### C BC #### [facility] [address] [place] [address] Dr. Pratibha Stevenson NEUT # 3.1 103/ul Normal 1.4-6.5 [facility] Comment on above: Performed By: #### C BC #### [facility] [address] [place] [address] Dr. Pratibha Stevenson Neutrophils/100 WBC (Bld) 47.2 % Normal 43.0-75.0 [facility] Comment on above: Performed By: #### C BC #### [facility] [address] [place] [address] Dr. Pratibha Stevenson Platelet mean volume (Bld) [Entitic vol] 10.7 fL Normal 9.5-13.5 [facility] Comment on above: Performed By: #### C BC #### [facility] [address] [place], [place] [address] Dr. Pratibha Stevenson PLT 216 103/ul Normal 150-450 [facility] Comment on above: Performed By: #### C BC #### [facility] [address] [place], [place] [address] Dr. Pratibha Stevenson RBC 4.61 106/ul Critically low 4.70-6.10 [facility] Comment on above: Performed By: #### C BC #### [facility] [address] [place], [place] [address] Dr. Pratibha Stevenson WBC 6.6 103/ul Normal 4.0-11.0 [facility] Comment on above: Performed By: #### C BC #### [facility] [id number] Pratibha Stevenson CT ABD/PELVIS WO CONon [...] by: SAUMYA MARSH Date: 2022-05-11 08:31 Normal [facility] LIPASEon 05-11-2022 Lipase [Catalytic activity/Vol] 241.0 U/L Normal 73.0-393.0 [facility] Comment on above: Performed By: #### C MP, GREG, LIPA #### [facility] [address] [place] [address] Dr. Pratibha Stevenson PROF 14(COMP METB)on 023 Albumin [Mass/Vol] 3.6 g/dL Normal 3.4-5.0 [facility] Comment on above: Performed By: #### C MP, GREG, LIPA #### [facility] [address] [place] [address] Dr. Pratibha Stevenson Albumin/Globulin [Mass ratio] 1.2 {ratio} Normal [facility] Comment on above: Performed By: #### C MP, GREG, LIPA #### [facility] [address] [place] [address] Dr. Pratibha Stevenson ALP [Catalytic activity/Vol] 75 U/L Normal 46-116 [facility] Comment on above: Performed By: #### C MP, GREG, LIPA #### [facility] [address] [place] [address] Dr. Pratibha Stevenson ALT [Catalytic activity/Vol] 28 U/L Normal 16-63 [facility] Comment on above: Performed By: #### C MP, GREG, LIPA #### [facility] [address] [place] [address] Dr. Pratibha Stevenson Anion gap [Moles/Vol] 9.7 mmol/L Normal [facility] Comment on above: Performed By: #### C MP, GREG, LIPA #### [facility] [address] [place] [address] Dr. Pratibah Stevenson AST [Catalytic activity/Vol] 19 U/L Normal 15-37 [facility] Comment on above: Performed By: #### C GREG NGUYEN LIPA #### [facility] [address] [place] [address] Dr. Pratibha Stevenson Bilirubin [Mass/Vol] 0.5 mg/dL Normal 0.2-1.0 [facility] Comment on above: Performed By: #### C GREG NGUYEN LIPA #### [facility] [address] [place] [address] Dr. Pratibha Stevenson Calcium [Mass/Vol] 9.1 mg/dL Normal 8.5-10.1 [facility] Comment on above: Performed By: #### C GREG NGUYEN LIPA #### [facility] [address] [place] [address] Dr. Pratibha Stevenson Chloride [Moles/Vol] 104 mmol/L Normal 98-107 [facility] Comment on above: Performed By: #### C GREG NGUYEN LIPA #### [facility] [address] [place] [address] Dr. Pratibha Stevenson CO2 [Moles/Vol] 29.3 mmol/L Normal 21.0-32.0 [facility] Comment on above: Performed By: #### C GREG NGUYEN LIPA #### [facility] [address] [place] [address] Dr. Pratibha Stevenson Creatinine [Mass/Vol] 1.21 mg/dL Normal 0.70-1.30 [facility] Comment on above: Performed By: #### C GREG NGUYEN, LIPA #### [facility] [address] [place] [address] Dr. Pratibha Stevenson EGFR-AF BARBADIAN >60 Normal >=60 [facility] Comment on above: Performed By: #### C GREG NGUYEN, LIPA #### [facility] [address] [place] [address] Dr. Pratibha Stevenson EGFR-NON AF BARBADIAN >60 Normal >=60 [facility] Comment on above: Performed By: #### C GREG NGUYEN, LIPA #### [facility] [address] [address] [address] Pratibha Stevenson Globulin (S) [Mass/Vol] 3.1 g/dL Normal [facility] Comment on above: Performed By: #### C GREG NGUYEN LIPA #### [facility] [address] [place] [address] Dr. Pratibha Stevenson Glucose [Mass/Vol] 88 mg/dL Normal 74-106 [facility] Comment on above: Performed By: #### C GREG NGUYEN LIPA #### [facility] [address] [place] [address] Dr. Pratibha Stevenson Potassium [Moles/Vol] 4.0 mmol/L Normal 3.5-5.1 [facility] Comment on above: Performed By: #### C GREG NGUYEN, LIPA #### [facility] [address] [place] [address] Dr. Pratibha Stevenson Protein [Mass/Vol] 6.7 g/dL Normal 6.4-8.2 [facility] Comment on above: Performed By: #### C GREG NGUYEN, LIPA #### [facility] [address] [place] [address] Dr. Pratibha Stevenson Sodium [Moles/Vol] 139 mmol/L Normal 136-145 [facility] Comment on above: Performed By: #### C GREG NGUYEN, LIPA #### [facility] [address] [place] [address] Dr. Pratibha Stevenson Urea nitrogen [Mass/Vol] 8.0 mg/dL Normal 7.0-18.0 [facility] Comment on above: Performed By: #### C GREG NGUYEN, LIPA #### [facility] [address] [place] [address] Dr. Pratibha Stevenson Urea nitrogen/Creatinine [Mass ratio] 6.6 mg/mg Normal [facility] Comment on above: Performed By: #### C GREG NGUYEN, LIPA #### [facility] [address] [place] [address] Dr. Pratibha Stevenson XR KUB 1 VIEWon [...] Date: 2022-05-11 06:36 Normal [facility] AMYLASEon 05-10-2022 Amylase [Catalytic activity/Vol] 41 U/L Normal 25-115 [facility] Comment on above: Performed By: #### L ACT #### [facility] [address] [place] [address] Dr. Pratibha Stevenson CBC AUTO DIFFon 05-10-2022 BASO # 0.0 103/ul Normal 0.0-0.1 [facility] Comment on above: Performed By: #### L ACT #### [facility] [address] [place] [address] Dr. Pratibha Stevenson Basophils/100 WBC (Bld) 0.7 % Normal 0.2-2.0 [facility] Comment on above: Performed By: #### L ACT #### [facility] [address] [place] [address] Dr. Pratibha Stevenson EO # 0.2 103/ul Normal 0.0-0.7 [facility] Comment on above: Performed By: #### L ACT #### [facility] [address] [place] [address] Dr. Pratibha Stevenson Eosinophils/100 WBC (Bld) 2.8 % Normal 0.9-7.0 [facility] Comment on above: Performed By: #### L ACT #### [facility] [address] [address] [address] Pratibha Stevenson Erythrocyte distribution width (RBC) [Ratio] 11.8 % Normal 11.0-15.0 [facility] Comment on above: Performed By: #### L ACT #### [facility] [address] [address] [address] Pratibha Stevenson Hematocrit (Bld) [Volume fraction] 38.8 % Critically low 42.0-54.0 [facility] Comment on above: Performed By: #### L ACT #### [facility] [address] [place] [address] Dr. Pratibha Stevenson Hemoglobin (Bld) [Mass/Vol] 13.3 g/dL Critically low 14.0-18.0 [facility] Comment on above: Performed By: #### L ACT #### [facility] [address] [place] [address] Dr. Pratibha Stevenson IG # 0.02 10e3/ul Normal 0.00-0.03 [facility] Comment on above: Performed By: #### L ACT #### [facility] [address] [place] [address] Dr. Pratibha Stevenson IG % 0.3 % Normal 0.0-0.5 [facility] Comment on above: Performed By: #### L ACT #### [facility] [address] [place] [address] Dr. Pratibha Stevenson LYMPH # 2.1 103/ul Normal 1.2-3.8 [facility] Comment on above: Performed By: #### L ACT #### [facility] [address] [place] [address] Dr. Pratibha Stevesnon Lymphocytes/100 WBC (Bld) 35.3 % Normal 20.5-60.0 [facility] Comment on above: Performed By: #### L ACT #### [facility] [address] [place] [address] Dr. Pratibha Stevenson MANUAL DIFF REQ NO Normal [facility] Comment on above: Performed By: #### L ACT #### [facility] [address] [place] [address] Dr. Pratibha Stevenson MCH (RBC) [Entitic mass] 30.7 pg Normal 25.9-34.0 [facility] Comment on above: Performed By: #### L ACT #### [facility] [address] [place] [address] Dr. Pratibha Stevenson MCHC (RBC) [Mass/Vol] 34.3 g/dL Normal 29.9-35.2 [facility] Comment on above: Performed By: #### L ACT #### [facility] [address] [place] [address] Dr. Pratibha Stevenson MCV (RBC) [Entitic vol] 89.6 fL Normal 80.0-94.0 [facility] Comment on above: Performed By: #### L ACT #### [facility] [address] [place] [address] Dr. Pratibha Stevenson MONO # 0.4 103/ul Normal 0.3-0.8 [facility] Comment on above: Performed By: #### L ACT #### [facility] [address] [place] [address] Dr. Pratibha Stevenson Monocytes/100 WBC (Bld) 7.4 % Normal 1.7-12.0 [facility] Comment on above: Performed By: #### L ACT #### [facility] [address] [place] [address] Dr. Pratibha Stevenson NEUT # 3.1 103/ul Normal 1.4-6.5 [facility] Comment on above: Performed By: #### L ACT #### [facility] [address] [place] [address] Dr. Pratibha Stevenson Neutrophils/100 WBC (Bld) 53.5 % Normal 43.0-75.0 [facility] Comment on above: Performed By: #### L ACT #### [facility] [address] [place] [address] Dr. Pratibha Stevenson Platelet mean volume (Bld) [Entitic vol] 10.2 fL Normal 9.5-13.5 [facility] Comment on above: Performed By: #### L ACT #### [facility] [address] [address] [address] Pratibha Stevenson PLT 197 103/ul Normal 150-450 [facility] Comment on above: Performed By: #### L ACT #### [facility] [address] [address] [address] Pratibha Stevenson RBC 4.33 106/ul Critically low 4.70-6.10 [facility] Comment on above: Performed By: #### L ACT #### [facility] [address] [address] [address] Pratibha Stevenson WBC 5.8 103/ul Normal 4.0-11.0 [facility] Comment on above: Performed By: #### L ACT #### [facility] [address] [place] [address] Dr. Pratibha Stevenson LIPASEon 05-10-2022 Lipase [Catalytic activity/Vol] 134.0 U/L Normal 73.0-393.0 [facility] Comment on above: Performed By: #### L ACT #### [facility] [address] [place] [address] Dr. Pratibha Stevenson PROF 14(COMP METB)on 023 Albumin [Mass/Vol] 3.1 g/dL Critically low 3.4-5.0 [facility] Comment on above: Performed By: #### L ACT #### [facility] [address] [place] [address] Dr. Pratibha Stevenson Albumin/Globulin [Mass ratio] 1.1 {ratio} Normal [facility] Comment on above: Performed By: #### L ACT #### [facility] [address] [place] [address] Dr. Pratibha Stevenson ALP [Catalytic activity/Vol] 68 U/L Normal 46-116 [facility] Comment on above: Performed By: #### L ACT #### [facility] [address] [address] [address] Pratibha Stevenson ALT [Catalytic activity/Vol] 25 U/L Normal 16-63 [facility] Comment on above: Performed By: #### L ACT #### [facility] [address] [address] [address] Pratibha Stevenson Anion gap [Moles/Vol] 11.1 mmol/L Normal [facility] Comment on above: Performed By: #### L ACT #### [facility] [address] [place] [address] Dr. Pratibha Stevenson AST [Catalytic activity/Vol] 16 U/L Normal 15-37 [facility] Comment on above: Performed By: #### L ACT #### [facility] [address] [address] [address] Pratibha Stevenson Bilirubin [Mass/Vol] 0.5 mg/dL Normal 0.2-1.0 [facility] Comment on above: Performed By: #### L ACT #### [facility] [address] [place] [address] Dr. Pratibha Stevenson Calcium [Mass/Vol] 8.6 mg/dL Normal 8.5-10.1 [facility] Comment on above: Performed By: #### L ACT #### [facility] [address] [place] [address] Dr. Pratibha Stevenson Chloride [Moles/Vol] 105 mmol/L Normal 98-107 [facility] Comment on above: Performed By: #### L ACT #### [facility] [address] [place] [address] Dr. Pratibha Stevenson CO2 [Moles/Vol] 26.6 mmol/L Normal 21.0-32.0 [facility] Comment on above: Performed By: #### L ACT #### [facility] [address] [place] [address] Dr. Pratibha Stevenson Creatinine [Mass/Vol] 1.12 mg/dL Normal 0.70-1.30 [facility] Comment on above: Performed By: #### L ACT #### [facility] [address] [place] [address] Dr. Pratibha Stevenson EGFR-AF BARBADIAN >60 Normal >=60 [facility] Comment on above: Performed By: #### L ACT #### [facility] [address] [place] [address] Dr. Pratibha Stevenson EGFR-NON AF BARBADIAN >60 Normal >=60 [facility] Comment on above: Performed By: #### L ACT #### [facility] [address] [place] [address] Dr. Pratibha Stevenson Globulin (S) [Mass/Vol] 2.7 g/dL Normal [facility] Comment on above: Performed By: #### L ACT #### [facility] [address] [address] [address] Pratibha Stevenson Glucose [Mass/Vol] 86 mg/dL Normal 74-106 [facility] Comment on above: Performed By: #### L ACT #### [facility] [address] [address] [address] Pratibha Stevenson Potassium [Moles/Vol] 3.7 mmol/L Normal 3.5-5.1 [facility] Comment on above: Performed By: #### L ACT #### [facility] [address] [place] [address] Dr. Pratibha Stevenson Protein [Mass/Vol] 5.8 g/dL Critically low 6.4-8.[address] [facility] Comment on above: Performed By: #### L ACT #### [facility] [address] [place] [address] Dr. Pratibha Stevenson Sodium [Moles/Vol] 139 mmol/L Normal 136-145 [facility] Comment on above: Performed By: #### L ACT #### [facility] [address] [place] [address] Dr. Pratibha Stevenson Urea nitrogen [Mass/Vol] 12.0 mg/dL Normal 7.0-18.0 [facility] Comment on above: Performed By: #### L ACT #### [facility] [address] [address] [address] Pratibha Stevenson Urea nitrogen/Creatinine [Mass ratio] 10.7 mg/mg Normal [facility] Comment on above: Performed By: #### L ACT #### [facility] [id number] Pratibha Stevenson US KIDNEYSon 05-10-2022 US [...] by: SAUMYA MARSH Date: 2022-05-10 08:37 Normal [facility] XR KUB 1 VIEWon 05-10-2022 XR KUB [...] by: MAUREEN GARDNER Date: 2022-05-10 06:55 Normal [facility] AMYLASEon 05-09-2022 Amylase [Catalytic activity/Vol] 44 U/L Normal 25-115 [facility] Comment on above: Performed By: #### C BC #### [facility] [address] [place] [address] Dr. Pratibha Stevenson CBC AUTO DIFFon 05-09-2022 BASO # 0.1 103/ul Normal 0.0-0.1 [facility] Comment on above: Performed By: #### S JOSE ARMANDO GRASTCX #### [facility] [address] [place] [address] Dr. Pratibha Stevenson Basophils/100 WBC (Bld) 0.9 % Normal 0.2-2.0 [facility] Comment on above: Performed By: #### S JOSE ARMANDO, GRASTCX #### [facility] [address] [place] [address] Dr. Pratibha Stevenson EO # 0.2 103/ul Normal 0.0-0.7 [facility] Comment on above: Performed By: #### S JOSE ARMANDO GRASTCX #### [facility] [address] [place] [address] Dr. Pratibha Stevenson Eosinophils/100 WBC (Bld) 2.6 % Normal 0.9-7.0 [facility] Comment on above: Performed By: #### S JOSE ARMANDO GRASTCX #### [facility] [address] [place] [address] Dr. Pratibha Stevenson Erythrocyte distribution width (RBC) [Ratio] 11.9 % Normal 11.0-15.0 [facility] Comment on above: Performed By: #### S JOSE ARMANDO, GRASTCX #### [facility] [address] [place] [address] Dr. Pratibha Stevenson Hematocrit (Bld) [Volume fraction] 38.8 % Critically low 42.0-54.0 [facility] Comment on above: Performed By: #### S JOSE ARMANDO, GRASTCX #### [facility] [address] [place] [address] Dr. Pratibha Stevenson Hemoglobin (Bld) [Mass/Vol] 13.9 g/dL Critically low 14.0-18.0 [facility] Comment on above: Performed By: #### S SCRN, GRASTCX #### [facility] [address] [place] [address] Dr. Pratibha Stevenson IG # 0.02 10e3/ul Normal 0.00-0.03 [facility] Comment on above: Performed By: #### S SCRN, GRASTCX #### [facility] [address] [address] [address] Pratibha Stevenson IG % 0.4 % Normal 0.0-0.5 [facility] Comment on above: Performed By: #### S SCRN, GRASTCX #### [facility] [address] [place] [address] Dr. Pratibha Stevenson LYMPH # 2.0 103/ul Normal 1.2-3.8 [facility] Comment on above: Performed By: #### S SCRN, GRASTCX #### [facility] [address] [place] [address] Dr. Pratibha Stevenson Lymphocytes/100 WBC (Bld) 34.9 % Normal 20.5-60.0 [facility] Comment on above: Performed By: #### S SCRN, GRASTCX #### [facility] [address] [place] [address] Dr. Pratibha Stevenson MANUAL DIFF REQ NO Normal [facility] Comment on above: Performed By: #### S SCRN, GRASTCX #### [facility] [address] [place] [address] Dr. Pratibha Stevenson MCH (RBC) [Entitic mass] 31.0 pg Normal 25.9-34.0 [facility] Comment on above: Performed By: #### S SCRN, GRASTCX #### [facility] [address] [place] [address] Dr. Pratibha Stevenson MCHC (RBC) [Mass/Vol] 35.8 g/dL Critically high 29.9-35.2 [facility] Comment on above: Performed By: #### S SCRN, GRASTCX #### [facility] [address] [place] [address] Dr. Pratibha Stevenson MCV (RBC) [Entitic vol] 86.6 fL Normal 80.0-94.0 [facility] Comment on above: Performed By: #### S SCRN, GRASTCX #### [facility] [address] [place] [address] Dr. Pratibha Stevenson MONO # 0.4 103/ul Normal 0.3-0.8 [facility] Comment on above: Performed By: #### S JOSE ARMANDO GRASTCX #### [facility] [address] [place] [address] Dr. Pratibha Stevenson Monocytes/100 WBC (Bld) 6.2 % Normal 1.7-12.0 [facility] Comment on above: Performed By: #### S JOSE ARMANDO GRASTCX #### [facility] [address] [place] [address] Dr. Pratibha Stevenson NEUT # 3.1 103/ul Normal 1.4-6.5 [facility] Comment on above: Performed By: #### S JOSE ARMANDO GRASTCX #### [facility] [address] [place] [address] Dr. Pratibha Stevenson Neutrophils/100 WBC (Bld) 55.0 % Normal 43.0-75.0 [facility] Comment on above: Performed By: #### S JOSE ARMANDO GRASTCX #### [facility] [address] [place] [address] Dr. Pratibha Stevenson Platelet mean volume (Bld) [Entitic vol] 9.7 fL Normal 9.5-13.5 [facility] Comment on above: Performed By: #### S JOSE ARMANDO, GRASTCX #### [facility] [address] [place] [address] Dr. Pratibha Stevenson PLT 201 103/ul Normal 150-450 [facility] Comment on above: Performed By: #### S JOSE ARMANDO, GRASTCX #### [facility] [address] [place] [address] Dr. Pratibha Stevenson RBC 4.48 106/ul Critically low 4.70-6.10 [facility] Comment on above: Performed By: #### S JOSE ARMANDO, GRASTCX #### [facility] [address] [place] [address] Dr. Pratibha Stevenson WBC 5.7 103/ul Normal 4.0-11.0 [facility] Comment on above: Performed By: #### S JOSE ARMANDO, GRASTCX #### [facility] [address] [place] [address] Dr. Pratibha Stevenson CULTURE URINEon 05-09-2022 CULTURE URINE Culture Observations : NO GROWTH. Normal [facility] Comment on above: Performed By: #### C BC #### [facility] [address] [place] [address] Dr. Pratibha Stevenson LIPASEon 05-09-2022 Lipase [Catalytic activity/Vol] 98.0 U/L Normal 73.0-393.0 [facility] Comment on above: Performed By: #### C BC #### [facility] [address] [place] [address] Dr. Pratibha Stevenson PROF 14(COMP METB)on 023 Albumin [Mass/Vol] 3.2 g/dL Critically low 3.4-5.0 Th e [facility] Comment on above: Performed By: #### C BC #### [facility] [address] [place] [address] Dr. Pratibha Stevenson Albumin/Globulin [Mass ratio] 1.3 {ratio} Normal [facility] Comment on above: Performed By: #### C BC #### [facility] [address] [place] [address] Dr. Pratibha Stevenson ALP [Catalytic activity/Vol] 74 U/L Normal 46-116 [facility] Comment on above: Performed By: #### C BC #### [facility] [address] [place] [address] Dr. Pratibha Stevenson ALT [Catalytic activity/Vol] 25 U/L Normal 16-63 [facility] Comment on above: Performed By: #### C BC #### [facility] [address] [place] [address] Dr. Pratibha Stevenson Anion gap [Moles/Vol] 10.7 mmol/L Normal [facility] Comment on above: Performed By: #### C BC #### [facility] [address] [place] [address] Dr. Pratibha Stevenson AST [Catalytic activity/Vol] 18 U/L Normal 15-37 [facility] Comment on above: Performed By: #### C BC #### [facility] [address] [address] [address] Pratibha Stevenson Bilirubin [Mass/Vol] 0.7 mg/dL Normal 0.2-1.0 [facility] Comment on above: Performed By: #### C BC #### [facility] [address] [address] [address] Pratibha Stevenson Calcium [Mass/Vol] 8.5 mg/dL Normal 8.5-10.1 [facility] Comment on above: Performed By: #### C BC #### [facility] [address] [place] [address] Dr. Pratibha Stevenson Chloride [Moles/Vol] 106 mmol/L Normal 98-107 [facility] Comment on above: Performed By: #### C BC #### [facility] [address] [place] [address] Dr. Pratibha Stevenson CO2 [Moles/Vol] 27.1 mmol/L Normal 21.0-32.0 [facility] Comment on above: Performed By: #### C BC #### [facility] [address] [place] [address] Dr. Pratibha Stevenson Creatinine [Mass/Vol] 1.16 mg/dL Normal 0.70-1.30 [facility] Comment on above: Performed By: #### C BC #### [facility] [address] [place] [address] Dr. Pratibha Stevenson EGFR-AF BARBADIAN >60 Normal >=60 [facility] Comment on above: Performed By: #### C BC #### [facility] [address] [place] [address] Dr. Pratibha Stevenson EGFR-NON AF BARBADIAN >60 Normal >=60 [facility] Comment on above: Performed By: #### C BC #### [facility] [address] [place] [address] Dr. Pratibha Stevenson Globulin (S) [Mass/Vol] 2.5 g/dL Normal [facility] Comment on above: Performed By: #### C BC #### [facility] [address] [place] [address] Dr. Pratibha Stevenson Glucose [Mass/Vol] 90 mg/dL Normal 74-106 [facility] Comment on above: Performed By: #### C BC #### [facility] [address] [address] [address] Pratibha Stevenson Potassium [Moles/Vol] 3.8 mmol/L Normal 3.5-5.1 [facility] Comment on above: Performed By: #### C BC #### [facility] [address] [address] [address] Pratibha Stevenson Protein [Mass/Vol] 5.7 g/dL Critically low 6.4-8.[address] [facility] Comment on above: Performed By: #### C BC #### [facility] [address] [address] [address] Pratibha Stevenson Sodium [Moles/Vol] 140 mmol/L Normal 136-145 [facility] Comment on above: Performed By: #### C BC #### [facility] [address] [address] [address] Pratibha Stevenson Urea nitrogen [Mass/Vol] 12.0 mg/dL Normal 7.0-18.0 [facility] Comment on above: Performed By: #### C BC #### [facility] [address] [address] [address] Pratibha Stevenson Urea nitrogen/Creatinine [Mass ratio] 10.3 mg/mg Normal [facility] Comment on above: Performed By: #### C BC #### [facility] [address] [address] [address] Pratibha Stevenson XR KUB 1 VIEWon [...] Date: 2022-05-09 05:31 Normal [facility] CBC AUTO DIFFon 05-08-2022 BASO # 0.1 103/ul Normal 0.0-0.1 [facility] Comment on above: Performed By: #### C BC #### [facility] [address] [address] [address] Pratibha Stevenson Basophils/100 WBC (Bld) 0.4 % Normal 0.2-2.0 [facility] Comment on above: Performed By: #### C BC #### [facility] [address] [place] [address] Dr. Pratibha Stevenson EO # 0.1 103/ul Normal 0.0-0.7 [facility] Comment on above: Performed By: #### C BC #### [facility] [address] [address] [address] Pratibha Stevenson Eosinophils/100 WBC (Bld) 1.0 % Normal 0.9-7.0 [facility] Comment on above: Performed By: #### C BC #### [facility] [address] [place] [address] Dr. Pratibha Stevenson Erythrocyte distribution width (RBC) [Ratio] 11.9 % Normal 11.0-15.0 [facility] Comment on above: Performed By: #### C BC #### [facility] [address] [place] [address] Dr. Pratibha Stevenson Hematocrit (Bld) [Volume fraction] 47.4 % Normal 42.0-54.0 [facility] Comment on above: Performed By: #### C BC #### [facility] [address] [place] [address] Dr. Pratibha Stevenson Hemoglobin (Bld) [Mass/Vol] 17.3 g/dL Normal 14.0-18.0 [facility] Comment on above: Performed By: #### C BC #### [facility] [address] [address] [address] Pratibha Stevenson IG # 0.05 10e3/ul Critically high 0.00-0.03 [facility] Comment on above: Performed By: #### C BC #### [facility] [address] [place] [address] Dr. Pratibha Stevenson IG % 0.4 % Normal 0.0-0.5 [facility] Comment on above: Performed By: #### C BC #### [facility] [address] [place] [address] Dr. Pratibha Stevenson LYMPH # 2.4 103/ul Normal 1.2-3.8 [facility] Comment on above: Performed By: #### C BC #### [facility] [address] [place] [address] Dr. Pratibha Stevenson Lymphocytes/100 WBC (Bld) 18.6 % Critically low 20.5-60.0 [facility] Comment on above: Performed By: #### C BC #### [facility] [address] [place] [address] Dr. Pratibha Stevenson MANUAL DIFF REQ NO Normal [facility] Comment on above: Performed By: #### C BC #### [facility] [address] [place] [address] Dr. Pratibha Stevenson MCH (RBC) [Entitic mass] 31.3 pg Normal 25.9-34.0 [facility] Comment on above: Performed By: #### C BC #### [facility] [address] [place] [address] Dr. Pratibha Stevenson MCHC (RBC) [Mass/Vol] 36.5 g/dL Critically high 29.9-35.2 [facility] Comment on above: Performed By: #### C BC #### [facility] [address] [place] [address] Dr. Pratibha Stevenson MCV (RBC) [Entitic vol] 85.7 fL Normal 80.0-94.0 [facility] Comment on above: Performed By: #### C BC #### [facility] [address] [place] [address] Dr. Pratibha Stevenson MONO # 0.6 103/ul Normal 0.3-0.8 [facility] Comment on above: Performed By: #### C BC #### [facility] [address] [place] [address] Dr. Pratibha Stevenson Monocytes/100 WBC (Bld) 5.0 % Normal 1.7-12.0 [facility] Comment on above: Performed By: #### C BC #### [facility] [address] [place] [address] Dr. Pratibha Stevenson NEUT # 9.6 103/ul Critically high 1.4-6.5 [facility] Comment on above: Performed By: #### C BC #### [facility] [address] [place] [address] Dr. Pratibha Stevenson Neutrophils/100 WBC (Bld) 74.6 % Normal 43.0-75.0 [facility] Comment on above: Performed By: #### C BC #### [facility] [address] [place] [address] Dr. Pratibha Stevenson Platelet mean volume (Bld) [Entitic vol] 9.6 fL Normal 9.5-13.5 [facility] Comment on above: Performed By: #### C BC #### [facility] [address] [place] [address] Dr. Pratibha Stevenson PLT 286 103/ul Normal 150-450 [facility] Comment on above: Performed By: #### C BC #### [facility] [address] [place] [address] Dr. Pratibha Stevenson RBC 5.53 106/ul Normal 4.70-6.10 [facility] Comment on above: Performed By: #### C BC #### [facility] [address] [place] [address] Dr. Pratibha Stevenson WBC 12.8 103/ul Critically high 4.0-11.0 [facility] Comment on above: Performed By: #### C BC #### [facility] [address] [place] [address] ABD/PELV W CONon [...] Date: 2022-05-08 18:37 Normal [facility]on SARS-CoV-2 (COVID-19) RNA MARIKA+probe Ql (Unsp spec) Not detected Normal NOT DETECTED The [facility] Comment on above: Result Comment: When diagnostic [...] for this test is supported by the [employer] of Health and Human Service's declaration that [...] By: #### C BC #### [facility] [address] [place] [address] Dr. Pratibha Stevenson ER URINE PROFILEon 3 Bilirubin Ql (U) SMALL Abnormal NEGATIVE [facility] Comment on above: Performed By: #### C BC #### [facility] [address] [place] [address] Dr. Pratibha Stevenson Clarity (U) CLEAR Normal CLEAR [facility] Comment on above: Performed By: #### C BC #### [facility] [address] [place] [address] Dr. Pratibha Stevenson Color (U) DK. ORANGE Abnormal YELLOW [facility] Comment on above: Performed By: #### C BC #### [facility] [address] [place] [address] Dr. Pratibha Stevenson ERURanjan A micrscopic examination will be performed if indicated. Normal [facility] Comment on above: Performed By: #### C BC #### [facility] [address] [place] [address] Dr. Pratibha Stevenson Glucose Ql (U) Negative Normal NEGATIVE [facility] Comment on above: Performed By: #### C BC #### [facility] [address] [place] [address] Dr. Pratibha Stevenson Hemoglobin Ql (U) LARGE Abnormal NEGATIVE The [facility] Comment on above: Performed By: #### C BC #### [facility] [address] [place] [address] Dr. Pratibha Stevenson Ketones Ql (U) TRACE Abnormal NEGATIVE [facility] Comment on above: Performed By: #### C BC #### [facility] [address] [place] [address] Dr. Pratibha Stevenson LEUKOCYTES Negative Normal NEGATIVE [facility] Comment on above: Performed By: #### C BC #### [facility] [address] [place] [address] Dr. Pratibha Stevenson Nitrite Ql (U) Negative Normal NEGATIVE [facility] Comment on above: Performed By: #### C BC #### [facility] [address] [place] [address] Dr. Pratibha Stevenson pH (U) 6.5 [pH] Normal 5-9 [facility] Comment on above: Performed By: #### C BC #### [facility] [address] [place] [address] Dr. Pratibha Stevenson Protein (U) [Mass/Vol] 100 mg/dL Abnormal NEGATIVE/ TRACE The [facility] Comment on above: Performed By: #### C BC #### [facility] [address] [place] [address] Dr. Pratibha Stevenson SPEC GRAVITY 1.010 Normal 1.005-<=1.025 [facility] Comment on above: Performed By: #### C BC #### [facility] [address] [place] [address] Dr. Pratibha Stevenson UR MICRO IND INDICATED Normal [facility] Comment on above: Performed By: #### C BC #### [facility] [address] [place] [address] Dr. Pratibha Stevenson Urobilinogen Qn (U) 1.0 {Butch'U}/dL Normal 0.2 - 1. 0 [facility] Comment on above: Performed By: #### C BC #### [facility] [address] [place] [address] Dr. Pratibha Stevenson LIPASEon 05-08-2022 Lipase [Catalytic activity/Vol] 417.0 U/L Critically high 73.0-393.0 [facility] Comment on above: Performed By: #### L ACT #### [facility] [address] [address] [address] Pratibha Stevenson PROF 14(COMP METB)on 023 Albumin [Mass/Vol] 4.5 g/dL Normal 3.4-5.0 [facility] Comment on above: Performed By: #### L ACT #### [facility] [address] [place] [address] Dr. Pratibha Stevenson Albumin/Globulin [Mass ratio] 1.3 {ratio} Normal [facility] Comment on above: Performed By: #### L ACT #### [facility] [address] [place] [address] Dr. Pratibha Stevenson ALP [Catalytic activity/Vol] 97 U/L Normal 46-116 [facility] Comment on above: Performed By: #### L ACT #### [facility] [address] [place] [address] Dr. Pratibha Stevenson ALT [Catalytic activity/Vol] 35 U/L Normal 16-63 [facility] Comment on above: Performed By: #### L ACT #### [facility] [address] [place] [address] Dr. Pratibha Stevenson Anion gap [Moles/Vol] 13.7 mmol/L Normal [facility] Comment on above: Performed By: #### L ACT #### [facility] [address] [place] [address] Dr. Pratibha Stevenson AST [Catalytic activity/Vol] 22 U/L Normal 15-37 [facility] Comment on above: Performed By: #### L ACT #### [facility] [address] [place] [address] Dr. Pratibha Stevenson Bilirubin [Mass/Vol] 0.7 mg/dL Normal 0.2-1.0 [facility] Comment on above: Performed By: #### L ACT #### [facility] [address] [place] [address] Dr. Pratibha Stevenson Calcium [Mass/Vol] 9.6 mg/dL Normal 8.5-10.1 [facility] Comment on above: Performed By: #### L ACT #### [facility] [address] [address] [address] Pratibha Stevenson Chloride [Moles/Vol] 99 mmol/L Normal 98-107 [facility] Comment on above: Performed By: #### L ACT #### [facility] [address] [address] [address] Pratibha Stevenson CO2 [Moles/Vol] 29.0 mmol/L Normal 21.0-32.0 [facility] Comment on above: Performed By: #### L ACT #### [facility] [address] [address] [address] Pratibha Stevenson Creatinine [Mass/Vol] 1.43 mg/dL Critically high 0.70-1.30 [facility] Comment on above: Performed By: #### L ACT #### [facility] [address] [address] [address] Pratibha Stevenson EGFR-AF BARBADIAN >60 Normal >=60 [facility] Comment on above: Performed By: #### L ACT #### [facility] [address] [address] [address] Pratibha Stevenson EGFR-NON AF BARBADIAN 58 mL/min/1.73m2 Critically low >=60 [facility] Comment on above: Performed By: #### L ACT #### [facility] [address] [address] [address] Pratibha Stevenson Globulin (S) [Mass/Vol] 3.5 g/dL Normal [facility] Comment on above: Performed By: #### L ACT #### [facility] [address] [address] [address] Pratibha Stevenson Glucose [Mass/Vol] 127 mg/dL Critically high 74-106 [facility] Comment on above: Performed By: #### L ACT #### [facility] [address] [address] [address] Pratibha Stevenson Potassium [Moles/Vol] 3.7 mmol/L Normal 3.5-5.1 [facility] Comment on above: Performed By: #### L ACT #### [facility] [address] [address] [address] Pratibha Stevenson Protein [Mass/Vol] 8.0 g/dL Normal 6.4-8.2 [facility] Comment on above: Performed By: #### L ACT #### [facility] [address] [address] [address] Pratibha Stevenson Sodium [Moles/Vol] 138 mmol/L Normal 136-145 [facility] Comment on above: Performed By: #### L ACT #### [facility] [address] [place] [address] Dr. Pratibha Stevenson Urea nitrogen [Mass/Vol] 13.0 mg/dL Normal 7.0-18.0 [facility] Comment on above: Performed By: #### L ACT #### [facility] [address] [place] [address] Dr. Pratibha Stevenson Urea nitrogen/Creatinine [Mass ratio] 9.1 mg/mg Normal [facility] Comment on above: Performed By: #### L ACT #### [facility] [address] [place] [address] Dr. Pratibha Stevenson URINE MICROSCOPIC ONLYon BACTERIA NONE SEEN Normal NONE SEEN [facility] Comment on above: Performed By: #### C BC #### [facility] [address] [place] [address] Dr. Pratibha Stevenson Bacteria identified Cx Nom (U) NOT INDICATED Normal [facility] Comment on above: Performed By: #### C BC #### [facility] [address] [place] [address] Dr. Pratibha Stevenson CAST NONE SEEN Normal NONE SEEN [facility] Comment on above: Performed By: #### C BC #### [facility] [address] [place], [place] [id number] Dr. Pratibha Stevenson Crystals LM Nom (Urine sed) NONE SEEN Normal NONE SEEN [facility] Comment on above: Performed By: #### C BC #### [facility] [address] [place] [address] Dr. Pratibha Stevenson Epithelial cells LM Ql (Urine sed) FEW Abnormal NONE SEEN /RARE [facility] Comment on above: Performed By: #### C BC #### [facility] [address] [address] [address] Pratibha Stevenson MUCOUS TRACE Abnormal NONE SEEN The [facility] Comment on above: Performed By: #### C BC #### [facility] [address] [place] [address] Dr. Pratibha Stevenson RBC (U) [#/Vol] /uL Abnormal 0-2 [facility] Comment on above: Performed By: #### C BC #### [facility] [address] [place] [address] Dr. Pratibha Stevenson WBC 2-5 Abnormal NONE SEEN The [facility] Comment on above: Performed By: #### C BC #### [facility] [address] [place] [address] Dr. Pratibha Stevenson XR CHEST 1 Von [...] Date: 2022-05-08 17:40 Normal [facility] CBC AUTO DIFFon 03-23-2022 BASO # 0.1 103/ul Normal 0.0-0.1 [facility] Comment on above: Performed By: #### C BC #### [facility] [address] [place] [address] Dr. Pratibha Stevenson Basophils/100 WBC (Bld) 0.9 % Normal 0.2-2.0 [facility] Comment on above: Performed By: #### C BC #### [facility] [address] [place] [address] Dr. Pratibha Stevenson EO # 0.1 103/ul Normal 0.0-0.7 [facility] Comment on above: Performed By: #### C BC #### [facility] [address] [place] [address] Dr. Pratibha Stevenson Eosinophils/100 WBC (Bld) 1.7 % Normal 0.9-7.0 [facility] Comment on above: Performed By: #### C BC #### [facility] [address] [place] [address] Dr. Pratibha Stevenson Erythrocyte distribution width (RBC) [Ratio] 12.3 % Normal 11.0-15.0 [facility] Comment on above: Performed By: #### C BC #### [facility] [address] [place] [address] Dr. Pratibha Stevenson Hematocrit (Bld) [Volume fraction] 47.2 % Normal 42.0-54.0 [facility] Comment on above: Performed By: #### C BC #### [facility] [address] [place] [address] Dr. Pratibha Stevenson Hemoglobin (Bld) [Mass/Vol] 16.0 g/dL Normal 14.0-18.0 [facility] Comment on above: Performed By: #### C BC #### [facility] [address] [place] [address] Dr. Pratibha Stevenson IG # 0.03 10e3/ul Normal 0.00-0.03 [facility] Comment on above: Performed By: #### C BC #### [facility] [address] [place] [address] Dr. Pratibha Stevenson IG % 0.4 % Normal 0.0-0.5 [facility] Comment on above: Performed By: #### C BC #### [facility] [address] [place] [address] Dr. Pratibha Stevenson LYMPH # 2.5 103/ul Normal 1.2-3.8 [facility] Comment on above: Performed By: #### C BC #### [facility] [address] [place] [address] Dr. Pratibha Stevenson Lymphocytes/100 WBC (Bld) 30.4 % Normal 20.5-60.0 [facility] Comment on above: Performed By: #### C BC #### [facility] [address] [place] [address] Dr. Pratibha Stevenson MANUAL DIFF REQ NO Normal [facility] Comment on above: Performed By: #### C BC #### [facility] [address] [address] [address] Pratibha Stevenson MCH (RBC) [Entitic mass] 30.9 pg Normal 25.9-34.0 [facility] Comment on above: Performed By: #### C BC #### [facility] [address] [place] [address] Dr. Pratibha Stevenson MCHC (RBC) [Mass/Vol] 33.9 g/dL Normal 29.9-35.2 [facility] Comment on above: Performed By: #### C BC #### [facility] [address] [place] [address] Dr. Pratibha Stevenson MCV (RBC) [Entitic vol] 91.3 fL Normal 80.0-94.0 [facility] Comment on above: Performed By: #### C BC #### [facility] [address] [place] [address] Dr. Pratibha Stevenson MONO # 0.6 103/ul Normal 0.3-0.8 [facility] Comment on above: Performed By: #### C BC #### [facility] [address] [place] [address] Dr. Pratibha Stevenson Monocytes/100 WBC (Bld) 7.6 % Normal 1.7-12.0 [facility] Comment on above: Performed By: #### C BC #### [facility] [address] [place] [address] Dr. Pratibha Stevenson NEUT # 4.8 103/ul Normal 1.4-6.5 [facility] Comment on above: Performed By: #### C BC #### [facility] [address] [place] [address] Dr. Pratibha Stevenson Neutrophils/100 WBC (Bld) 59.0 % Normal 43.0-75.0 [facility] Comment on above: Performed By: #### C BC #### [facility] [address] [place] [address] Dr. Pratibha Stevenson Platelet mean volume (Bld) [Entitic vol] 10.2 fL Normal 9.5-13.5 [facility] Comment on above: Performed By: #### C BC #### [facility] [address] [place], [place] [address] Dr. Pratibha Stevenson PLT 258 103/ul Normal 150-450 [facility] Comment on above: Performed By: #### C BC #### [facility] [address] [place], [place] [address] Dr. Pratibha Stevenson RBC 5.17 106/ul Normal 4.70-6.10 [facility] Comment on above: Performed By: #### C BC #### [facility] [address] [place], [place] [address] Dr. Pratibha Stevenson WBC 8.1 103/ul Normal 4.0-11.0 [facility] Comment on above: Performed By: #### C BC #### [facility] [address] [place], [place] [address] [address] ABD/PELVIS WO CONon [...] Date: 2022-03-22 23:40 Normal [facility] PROF 14(COMP METB)on 022 Albumin [Mass/Vol] 4.2 g/dL Normal 3.4-5.0 [facility] Comment on above: Performed By: #### L ACT #### [facility] [address] [place] [address] Dr. Pratibha Stevenson Albumin/Globulin [Mass ratio] 1.2 {ratio} Normal [facility] Comment on above: Performed By: #### L ACT #### [facility] [address] [address] [address] Pratibha Stveenson ALP [Catalytic activity/Vol] 84 U/L Normal 46-116 [facility] Comment on above: Performed By: #### L ACT #### [facility] [address] [place] [address] Dr. Pratibha Stevenson ALT [Catalytic activity/Vol] 32 U/L Normal 16-63 [facility] Comment on above: Performed By: #### L ACT #### [facility] [address] [place] [address] Dr. Pratibha Stevenson Anion gap [Moles/Vol] 10.6 mmol/L Normal [facility] Comment on above: Performed By: #### L ACT #### [facility] [address] [place] [address] Dr. Pratibha Stevenson AST [Catalytic activity/Vol] 18 U/L Normal 15-37 [facility] Comment on above: Performed By: #### L ACT #### [facility] [address] [place] [address] Dr. Pratibha Stevenson Bilirubin [Mass/Vol] 0.4 mg/dL Normal 0.2-1.0 [facility] Comment on above: Performed By: #### L ACT #### [facility] [address] [place] [address] Dr. Pratibha Stevenson Calcium [Mass/Vol] 9.8 mg/dL Normal 8.5-10.1 [facility] Comment on above: Performed By: #### L ACT #### [facility] [address] [place] [address] Dr. Pratibha Stevenson Chloride [Moles/Vol] 103 mmol/L Normal 98-107 [facility] Comment on above: Performed By: #### L ACT #### [facility] [address] [address] [address] Pratibha Stevenson CO2 [Moles/Vol] 28.2 mmol/L Normal 21.0-32.0 [facility] Comment on above: Performed By: #### L ACT #### [facility] [address] [address] [address] Pratibha Stevenson Creatinine [Mass/Vol] 1.24 mg/dL Normal 0.70-1.30 [facility] Comment on above: Performed By: #### L ACT #### [facility] [address] [place] [address] Dr. Pratibha Stevenson EGFR-AF BARBADIAN >60 Normal >=60 [facility] Comment on above: Performed By: #### L ACT #### [facility] [address] [place] [address] Dr. Pratibha Stevenson EGFR-NON AF BARBADIAN >60 Normal >=60 [facility] Comment on above: Performed By: #### L ACT #### [facility] [address] [place] [address] Dr. Pratibha Stevenson Globulin (S) [Mass/Vol] 3.6 g/dL Normal [facility] Comment on above: Performed By: #### L ACT #### [facility] [address] [place] [address] Dr. Pratibha Stevenson Glucose [Mass/Vol] 102 mg/dL Normal 74-106 [facility] Comment on above: Performed By: #### L ACT #### [facility] [address] [place] [address] Dr. Pratibha Stevenson Potassium [Moles/Vol] 3.8 mmol/L Normal 3.5-5.1 [facility] Comment on above: Performed By: #### L ACT #### [facility] [address] [address] [address] Pratibha Stevenson Protein [Mass/Vol] 7.8 g/dL Normal 6.4-8.2 [facility] Comment on above: Performed By: #### L ACT #### [facility] [address] [address] [address] Pratibha Stevenson Sodium [Moles/Vol] 138 mmol/L Normal 136-145 [facility] Comment on above: Performed By: #### L ACT #### [facility] [address] [place], [place] [address] Dr. Pratibha Stevenson Urea nitrogen [Mass/Vol] 18.0 mg/dL Normal 7.0-18.0 [facility] Comment on above: Performed By: #### L ACT #### [facility] [address] [address] [address] Pratibha Stevenson Urea nitrogen/Creatinine [Mass ratio] 14.5 mg/mg Normal [facility] Comment on above: Performed By: #### L ACT #### [facility] [address] [address] [address] Pratibha Stevenson Vital Signs Date Time Vital Sign Value Performing Clinician Faci lity 03-02-2024 11:02-0400 Body temperature 98.8 [degF] [facility]idal [facility] 03-02-2024 11:02-0400 Diastolic blood pressure 72 mm[Hg] Kym Vidal MD [facility] 03-02-2024 11:02-0400 Heart rate 83 /min Kym Vidal MD [facility] 03-02-2024 11:02-0400 Respiratory rate 16 /min Kym Vidal MD [facility] 03-02-2024 11:02-0400 SaO2% (BldA) [Mass fraction] 98 % Kym Vidal MD [facility] 03-02-2024 11:02-0400 Systolic blood pressure 120 mm[Hg] Kym Vidal MD [facility] 03-01-2024 03:44-0400 Body mass index (BMI) [Ratio] 31.82 kg/m2 Kym Vidal MD Work Phone: [facility] 03-01-2024 03:44-0400 Body weight 97.75 kg Kym Vidal MD Work Phone: [facility] 02-27-2024 00:30-0400 Body height 175.3 cm Kym Vidal MD Work Phone: [facility] 07-21-2022 08:57-0400 Blood Pressure Location Shirley [facility]ue [facility] 07-21-2022 08:57-0400 Diastolic blood pressure 69 mm[Hg] Shirley Lue [facility] 07-21-2022 08:57-0400 Heart rate 74 /min Shirley Lue [facility] 07-21-2022 08:57-0400 Systolic blood pressure 133 mm[Hg] Shirley Lue [facility] 07-13-2022 09:17-0400 Blood Pressure Location Shirley [facility] 07-13-2022 09:17-0400 Diastolic blood pressure 68 mm[Hg] Shirley Lue [facility] 07-13-2022 09:17-0400 Heart rate 73 /min Shirley Lue [facility] 07-13-2022 09:17-0400 Systolic blood pressure 124 mm[Hg] Shirley Lue [facility] Encounters Encounter Date Encounter Type Care Provider Facility Start: 02-27-2024 End: 03-02-2024 Evaluation and management of inpatient Kym Vidal MD Work Phone: [address] Comment on above: Pancytopenia (HCC) ( Primary Dx); Hip pain, unspecified laterality Start: 02-26-2024 End: 02-26-2024 Emergency department patient visit DOOLRES REYES [facility] Start: 06-14-2023 End: 06-14-2023 ambulatory [facility] Start: 06-14-2023 End: 06-14-2023 Subsequent hospital visit by physician Manjit Waller [facility] Comment on above: Arrived Start: 06-12-2023 End: 06-12-2023 ambulatory [facility] Start: 06-12-2023 End: 06-12-2023 Subsequent hospital visit by physician Manjit Waller [facility] Comment on above: Arrived Start: 06-09-2023 End: 06-09-2023 ambulatory [facility] Start: 06-09-2023 End: 06-09-2023 Subsequent hospital visit by physician Flash Goodiwn PTA [facility] Comment on above: Arrived Start: 06-05-2023 End: 06-05-2023 ambulatory [facility] Start: 05-31-2023 End: 05-31-2023 ambulatory [facility] Start: 05-29-2023 End: 05-29-2023 ambulatory [facility] Start: 05-26-2023 End: 05-26-2023 ambulatory [facility] Start: 05-22-2023 End: 05-22-2023 ambulatory [facility] Start: 05-17-2023 End: 05-17-2023 ambulatory [facility] Start: 03-13-2023 End: 03-13-2023 ambulatory [facility] Start: 08-11-2022 End: 08-11-[address] LATRICIA GARCIA . Facility: Start: 07-22-2022 End: 07-23-[address] LATRICIA GARCIA . Facility: Start: 07-21-2022 End: 07-22-2022 ambulatory Shirley Nikolai Handy Facility: [facility] Start: 07-21-2022 End: 07-21-2022 Patient encounter procedure Shirley Murrell [facility] Start: 07-20-2022 End: 07-20-[address] LATRICIA GARCIA . Facility: Start: 07-13-2022 End: 07-14-2022 ambulatory Shirley M. Jollylala Facility:[facility] Start: 07-13-2022 End: 07-13-2022 Patient encounter procedure Shirley Murrell [facility] Ernesto Start: 07-06-2022 End: 07-07-2022 ambulatory SHIRLEY M JOLLYLala . Facility: Start: 05-23-2022 End: 05-24-2022 ambulatory Shirleymaria del rosario Murrell Facility:[facility] Start: 05-23-2022 End: 05-23-2022 Patient encounter procedure Shirley Murrell [facility] Start: 05-11-2022 End: 05-12-2022 ambulatory Shirley ZionJoselin Murrell Facility:[id number] Start: 05-08-2022 End: 05-12-[address] [...] peripheral interp phys w/writ report [facility] Work Phone: Start: 02-29-2024 DIAGNOSTIC QUAL [...] VIRUS (EBV) ANTIBODY PANEL I Yasmin Ambrosio ECMO SPECIALIST - MANAGER AUDIT Work Phone: Start: 02-28-2024 Mri brain brain stem w/o w/contrast material Jenny Gunter ECMO SPECIALIST - MANAGER AUDIT Work Phone: Start: 02-28-2024 End: 02-28-2024 Ecg [...] Start: 02-28-2024 Anion gap [Moles/Vol] Jenny Russoters ECMO SPECIALIST - MANAGER AUDIT Work Phone: Start: 02-28-2024 GLOMERULAR FILTRATION RATE, ESTIMATED Jenny Gunter ECMO SPECIALIST - MANAGER AUDIT Work Phone: Start: 02-28-2024 Lactate dehydrogenase ldh Ruth Wyman MD Work Phone: Start: 02-27-2024 VITAMIN B12 & FOLATE Yasmin Ambrosio ECMO SPECIALIST - MANAGER AUDIT Work Phone: Start: 02-27-2024 EEG 24 HOUR AMBULATORY Jenny Gunter ECMO SPECIALIST - MANAGER AUDIT Work Phone: Start: 02-27-2024 Electroencephalogram w/rec awake&asleep Jenny uRssoters ECMO SPECIALIST - MANAGER AUDIT Work Phone: Start: 02-27-2024 End: 02-27-2024 C-reactive protein Barak Colon MD Work Phone: Start: 02-27-2024 End: 02-27-2024 Calcium ionized Jenny Beavers Lyric AP RN - MANAGER AUDIT Work Phone: Start: 02-27-2024 REFERENCE LAB SAMPLE Jennysona Gunter A PRN - MANAGER AUDIT Work Phone: Start: 02-27-2024 Urnls dip stick/tablet reagent auto microscopy Jenny Beavers Lyric ECMO SPECIALIST - MANAGER AUDIT Work Phone: Start: 02-27-2024 End: 02-27-2024 Rhythm [...] Pancytopenia (HCC) Expected: 04/01/2024 (Approximate), Expires: 03/02/2025 [employer] Comment on above: Expected: 04/01/2024 (Approximate), Expires: 03/02/2025 Start: 03-02-2024 End: 03-02-2025 CBC panel - Blood by Automated count CBC Lab Routine Pancytopenia (HCC) Expected: 03/02/2024 (Approximate), Expires: 03/02/2025 [employer] Comment on above: Expected: 03/02/2024 (Approximate), Expires: 03/02/2025 Start: 12-31-2023 COVID-19 Vaccine () COVID-19 Vaccine () [employer] Start: 11-30-2023 Influenza vaccination Flu vaccine (# 1) [employer] Start: 06-26-2023 End: 06-26-2023 Patient encounter procedure 06/26/2023 2:30 PM EST Appointment [facility] [address] [place] [id number] Manjit Waller [facility] Start: 06-23-2023 End: 06-23-2023 Patient encounter procedure 06/23/2023 1:45 PM EST Appointment [facility] [address] [place] [address] Flash Goodwin PTA [facility] Start: 06-19-2023 End: 06-19-2023 Patient encounter procedure 06/19/2023 3:15 PM EST Appointment [facility] [address] [place] [phone] Manjit Waller [facility] Start: 06-14-2023 End: 06-14-2023 Patient encounter procedure 06/14/2023 3:30 PM EST Appointment [facility] [address] [place] [address] Manjit Waller [facility] Start: 06-12-2023 End: 06-12-2023 Patient encounter procedure 06/12/2023 3:15 PM EST Appointment [facility] [address] [place] [phone] Manjit Waller [facility] Start: 11-29-2022 Influenza vaccination Flu vaccine (# 1) [facility] Start: 2010 Hepatitis C screening Hepatitis C sc reen [facility] Start: 08-18-2007 HIV screening HIV screen [facility] Start: 2005 Varicella vaccine (1 of 2 - 13+ 2-dose series) Varicella vaccine (1 of 2 - 13+ 2-dose series) [facility] Start: 2004 Depression Screen Depression Screen [facility] Start: 08-18-2003 DTaP/Tdap/Td vaccine (6 - Tdap) DTaP/Tdap/Td vaccine (6 - Tdap) [facility] Start: 1998 Pneumococcal 0-64 ye ars Vaccine (1 of 2 - PCV) Pneumococcal 0-64 years Vaccine (1 of 2 - PCV) [facility] Start: 1993 Varicella vaccine (1 of 2 - 2-dose childhood series) Varicella vaccine (1 of 2 - 2-dose childhood series) [facility] Start: 02-16-1993 COVID-19 Vaccine (#1) COVID-19 Vacci ne (#1) [facility] End: 03-03-2024 CBC W Auto Differential panel - Blood CBC with Auto Differential Lab Routine Daily for 3 Days starting 03/01/2024 until 03/03/2024, 2 completed [facility] Comment on above: Daily for 3 Days sta rting 03/01/2024 until 03/03/2024, 2 completed End: 03-01-2024 Chromosome analysis, bone marrow [facility] Comment on above: Once for 1 Occurrenc es starting 03/01/2024 until 03/01/2024 Diagnostic Qual BCR- ABL1 Assay w Reflex to p190 or p210 Quant Assaysantitative Assays Diagnostic Qual BCR-ABL1 Assay w Reflex to p190 or p210 Quant Assaysantitative Assays Lab Routine 02/29/2024 5:30 PM EDT [facility] End: 02-29-2024 Flow Cytometry Leukemia/Lymphoma, Bone Marrow Flow Cytometry Leukemia/Lymphoma, Bone Marrow Lab Routine One Time for 1 Occurrences starting 02/29/2024 until 02/29/2024 [facility] Comment on above: One Time for 1 Occur rences starting 02/29/2024 until 02/29/2024 End: 03-01-2024 Flow Cytometry Leukemia/Lymphoma, Bone Marrow [facility] Comment on above: Once for 1 Occurrenc es starting 03/01/2024 until 03/01/2024 End: 03-02-2024 Leukemia / lymphoma phenotype [facility] Work Phone: Comment on above: One Time for 1 Occur rences starting 03/02/2024 until 03/02/2024 End: 03-01-2024 Myeloid Malignancies Mutation Panel [facility] Comment on above: One Time for 1 Occur rences starting 03/01/2024 until 03/01/2024 Oxygen therapy [Mini [facility] Data Set] Initiate Oxygen Therapy Protocol Respiratory Care Routine As Needed until discontinued starting 02/27/2024 Roberto [facility] Work Phone: Comment on above: As Needed until disc ontinued starting 02/27/2024 Immunizations Immunization Date Immunization Notes Care Provider Khushbu thao 12-26-1997 DTaP, unspecified formulation Shirley Lue [facility] 12-26-1997 measles, mumps and rubella virus vaccine Shirley Lue [facility] 01-10-1994 DTaP, unspecified formulation Shirley Lue [facility] 01-10-1994 hepatitis B vaccine, pediatric or pediatric/adolescent dosage Shirley Lue [facility] 01-10-1994 Hib, unspecified formulation Shirley Lue [facility] 01-10-1994 measles, mumps and rubella virus vaccine Shirley Lue [facility] 03-12-1993 Hib, unspecified formulation Shirley Lue [facility] 01-01-1993 hepatitis B vaccine, pediatric or pediatric/adolescent dosage Shirley Lue [facility] 01-01-1993 Hib, unspecified formulation Shirley Lue [facility] 1990 hepatitis B vaccine, pediatric or pediatric/adolescent dosage Shirley Lue [facility] 1990 Hib, unspecified formulation Shirley Lue [facility] Payers Date Payer Category Payer Unknown [id number] 2.16.8 [id number] 1992 Unknown [id number] 2.16.8 [id number] 1992 Unknown [id number] 2.16.8 40.1.927210.3.579.2.727 1992 Unknown [id number] 2.16.8 40.1.268233.3.579.2.727 1992 Unknown [id number] 2.16.84 0.1.728133.3.579.2.593 1992 Unknown [id number] 2.16.84 0.1.099553.3.579.2.593 1992 Unknown [id number] 2.16.84 0.1.069465.3.579.2.593 1992 Unknown [id number] 2.16.84 0.1.848103.3.579.2.593 1992 Unknown [id number] 2.16.84 0.1.168814.3.579.2.593 1992 Unknown [id number] 2.16.84 0.1.290318.3.579.2.593 1992 Unknown [id number] 2.16.8 40.1.009309.3.579.2.173 1992 Unknown [id number] 2.16.8 40.1.267223.3.579.2.173 1992 Unknown [id number] 2.16.8 40.1.463516.3.579.2.173 1992 Unknown [id number] 2.16.8 40.1.816270.3.579.2.173 1992 Unknown [id number] 2.16.8 40.1.975422.3.579.2.173 1992 Unknown [id number] 2.16.8 40.1.211305.3.579.2.173 1992 Unknown [id number] 2.16.8 40.1.107395.3.579.2.173 1992 Unknown [id number] 2.16.8 40.1.209617.3.579.2.173 1992 Unknown [id number] 2.16.8 40.1.522459.3.579.2.173 1992 Unknown [id number] 2.16.8 40.1.571108.3.579.2.173 1992 Unknown [id number] 2.16.8 40.1.244978.3.579.2.173 1957 Medicaid [id number] 1957 Self-pay [id number] Self-pay Social History Date Type Detail Facility Tobacco smoking status [facility] Start: 02-26-2024 End: 02-27-2024 Sex Assigned At Male [facility] Start: 07-13-2022 End: 07-21-2022 Tobacco smoking status Light tobacco smoker (finding) [facility] Tobacco smoking status Never [facility] consumption [facility] Start: 1990 Sex Assigned At Not on file B ON [employer] Start: 02-26-2024 Tobacco [facility] daily [employer] History of tobacco use Cigarette Smoker B on [facility] [employer] Start: 02-26-2024 Tobacco use and exposure Former smokeless tobacco user [employer] Start: 03-01-2024 Alcoholic beverage intake Ex-drinker (finding) [employer] Start: 02-26-2024 End: 02-27-2024 History of Social function [employer] Has the [employer], [employer], or water [employer] threatened to shut off services in your home in past 12Mo No [employer] (I/We) worried fanta er (my/our) food would run out before (I/we) got money to buy more. Never true [employer] Functional Status Date Assessment Result Facility 07-21-2022 Functional Status N/A [facility] 07-13-2022 Functional Status N/A [facility] 05-12-2022 Functional Status N/A [facility] Clinical Notes 05-26-2022 to 03-02-2024 Daphne [...] per family. Pt supplied with walker from [facility]. TRANSFER - OUT REPORT: Verbal report given [...] fibromyalgia, tobacco use disorder who presented to [facility] on 02/27/2024 for evaluation of loss of [...] Mendoza. 0904 Samples collected and given to house carpenter for further review. 0906 Procedure completed; patient [...] Multiple personality disorder, Fibromyalgia who presented to [facility] on 02/26 with chief complaint of loss of consciousness. Directly admitted from [facility]. Reported on 02/22 having seizure while at [...] Service - 02/29/2024 Neurology Progress Note Date:02/29/2024 Room:[address] [place] [address] Patient Name:Ethan Donald Date of :1990 Age:33 y.o. CC: No chief complaint on file. Subjective Ethan Donadl is a 33 y.o. male with a history of Multiple Personality Disorder, Fibromyalgia and Marijuana and Tobacco dependence who presented to [facility] after passing out at his psychiatrist office; transferred to [facility] on 02/26/2024 for neurology evaluation. Patient reports [...] time. Motor: Motor strength is normal. Coordination: Upqecm-Axel-Ltropb Test and Heel to Gutierrez Test normal. [...] Patient: Ethan Donald 33 y.o. male Unit/Bed: [address] [place] [address] Admit Date: 02/27/2024 ASSESSMENT AND PLAN Active [...] Multiple personality disorder, Fibromyalgia who presented to [facility] on 02/26 with chief complaint of loss of consciousness. Directly admitted from [facility]. Reported on 02/22 having seizure while at [...] Service - 02/28/2024 Neurology Progress Note Date:02/28/2024 Room:[address] [place] [address] Patient Name:Ethan Donald Date of :1990 Age:33 y.o. CC: No chief complaint on file. Subjective Ethan Donald is a 33 y.o. male with a history of Multiple Personality Disorder, Fibromyalgia and Marijuana and Tobacco dependence who presented to [facility] after passing out at his psychiatrist office; transferred to [facility] on 02/26/2024 for neurology evaluation. Patient reports [...] of Arthritis, Fibromyalgia, Multiple personalities (HCC), and [place]-Schlatter's disease. Social History: reports that he has [...] time. Motor: Motor strength is normal. Coordination: Yyvcqr-Xksp-Yjpctj Test and Heel to Gutierrez Test normal. [...] plan. Spiritual Health History and Assessment/Progress Note [facility] (P) Advance Care Planning, , , Name: Ethan Donald Age: 33 y.o. Sex: male Language: Albanian Jainism: None New onset seizure (HCC) Date: 02/28/2024 Total Time Calculated: (P) 35 min Spiritual Assessment continued in [facility] 4A Referral/Consult From: (P) Nurse Encounter [...] of Hope, please send discharge medication to [facility]. Thank you! Misti Tineo CPhT - Prescription Assistance ([phone]) 02/27/2024,3:31 PM Assessment: Ethan is a 33 year old male resting in his bed alone, ca.lm. tired and awake. This visit is in response to a Spiritual Consult to discuss ACP document.Please see ACP note for detail [facility] Neurodiagnostic Cra Officer Worksheet EEG Date: 02/27/2024 Name: Ethan Donald : 1990 Age: 33 y.o. Sex: male CSN: [id number] Room/Location: Ordering Provider: Brian Gunter EEG Number: [...] Deprived: Yes Seizures Observed: No Mentality: alert [employer] Technology Specialist: Bahman Robledo 02/27/2024 [facility], Dr Reyes. 33 yo new onset seizure, headache and syncopal episode. Wed. he had a seizure in his sleep, bit his tongue. Followed up with PCP and [facility]. At PCP appt today had a pain in head, passed out, came to ED. CT head without contrast nothing acute. No CT with contrast done because wasn't sure if he had contrast at [facility]. No ability to do MRI after 4PM. Questioning temporal arteritis , 60 mg solumedrol given, also given zofran . WBC 4.1, sed rate 17, CRP 81.9. Vials afebrile, 138/84, 92, 18, 97% on room air. documented in this encounter [facility] 03-02-2024 Hospital Discharge instructions Maureen Hampton DO - 03/02/2024 11:54 AM EDT Follow up with your family doctor in the next week. Continue to wear mask for a precaution when around family and friends. Follow up with Neurology, continue seizure precautions. Do not drive motor vehicles until you follow up and see neurology. 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 -met Ornament Maker Hand Goals Time Frame for Ornament Maker Hand Goals : 6 weeks Ornament Maker Hand Goal 1: Patient to be independent and compliant with HEP. -met Ornament Maker Hand Goal 2: Patient to have improved R knee AROM 0-120* with no increase in pain for improved mobility. -met (05/31/23 R knee AROM 0-130*) Ornament Maker Hand Goal 3: Patient to have improved R LE strength >/=4/5 grossly all major joints and planes for improved knee stability with gait. Retirement Goal 4: Pt to report ability to walk community distances with no AD and no gait deviations or increase in pain to return to PLOF. 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 -met Retirement Goals Time Frame for Ornament Maker Hand Goals : 6 weeks Retirement Goal 1: Patient to be independent and compliant with HEP. -met Ornament Maker Hand Goal 2: Patient to have improved R knee AROM 0-120* with no increase in pain for improved mobility. -met (05/31/23 R knee AROM 0-130*) Ornament Maker Hand Goal 3: Patient to have improved R LE strength >/=4/5 grossly all major joints and planes for improved knee stability with gait. Ornament Maker Hand Goal 4: Pt to report ability to walk community distances with no AD and no gait deviations or increase in pain to return to PLOF. -progressing Minutes Tracking: Time In: 1515 Time Out: 1558 Minutes: 43 Timed Code Treatment Minutes: 41 Minutes Manjit Thorpe Date: 06/12/2023 documented in this encounter [facility] 07-21-2022 Hospital Discharge instructions Patient Education 07/21/2022 [...] include: ?Spinach. ?Rhubarb. ?Beets. ?Potato chips and citizen of [place] fries. ?Nuts. If you regularly take a diuretic medicine, make sure to eat at least 1 2 fruits or vegetables high in potassium each day. These include: ?Avocado. ?Banana. ?Watkins, prune, carrot, or tomato juice. ?Baked potato. [...] Casseroles. Pizza. Lasagna. Frozen meals. Potato chips. Irish fries. Summary You can reduce your risk [...] 08/12/2011 Document Revised: 08/07/2019 Document Reviewed: 03/28/2017 [employer] Patient Education 2020 Pocket Change Card. Follow Up Care 07/20/2022 16:11:07 With:Shirley Murrell MD, URL, [facility]RO Address: When: Unknown [facility] 07-13-2022 Hospital Discharge instructions Patient Education [...] include: ?Spinach. ?Rhubarb. ?Beets. ?Potato chips and citizen of [place] fries. ?Nuts. If you regularly take a diuretic medicine, make sure to eat at least 1 2 fruits or vegetables high in potassium each day. These include: ?Avocado. ?Banana. ?Watkins, prune, carrot, or tomato juice. ?Baked potato. [...] Casseroles. Pizza. Lasagna. Frozen meals. Potato chips. Irish fries. Summary You can reduce your risk [...] 08/12/2011 Document Revised: 08/07/2019 Document Reviewed: 03/28/2017 [employer] Patient Education 2020 Pocket Change Card. Follow Up Care 05/23/2022 10:22:28 With:Handy WILEY, Shirley Menchaca, URL, [facility] Address: When: Unknown [facility] 05-26-2022 Note [id number] [facility] Evaluation + Plan note Future Appointments Appointment Date:07/13/2022 09:00:00 AM Scheduled Provider:Shirley Murrell MD Location:[facility] Appointment Type:URO Office Visit [facility] Evaluation note Diagnosis New onset seizure (HCC)- Primary Other convulsions Pancytopenia (HCC) Other pancytopenia Hip pain, unspecified laterality Pancytopenia (HCC) Other pancytopenia documented in this encounter [facility] course Narrative No data available for this section [facility] Dis[facility] instructions No data available for this section [facility] No data available for this section [facility] Summary Purpose Family History No Family History Records FoundNo Family History Records FoundNo Family History Records FoundNo Family History Records Found Advance Directives No Advanced Directives Records FoundDocuments on File Type Date Recorded Patient Slice Plug Cutter Operator Expl anation ACP-Advance Directive 02/29/2024 2:09 PM Date Activated Date Inactivated Comments 02/27/2024 12:32 AM Healthcare Agents on File Name Relationship Healthcare Agent Relationshi p Communication Daisy Araujo Girlfriend Primary Decision Maker Hiren Donald Parent Secondary Decision Maker Additional Source Comments Patient Care team informatio n (unrecognized section and content) Fire Operations Forester Relationship Specialty Start Date End Date Latricia Garcia MD [address] [place] [address] PCP - General Family Medicine 02/16/23 [employer] Relationship Specialty Start Date End Date Latricia Garcia MD [address] [place] [address] PCP - General Family Medicine 02/16/23 [employer] Relationship Specialty Start Date End Date Latricia Garcia MD [address] [place] [address] PCP - General Family Medicine 02/16/23 (unrecognized sect ion and content) No Status Records FoundNo Status Records FoundNo Status Records FoundNo Status Records Found INFORMATION SOURCE (unrecogn ized section and content) DATE CREATED AUTHOR 07/31/2022 Max Medrano [facility] DATE CREATED AUTHOR AUTHOR'S ORGANIZ ATION 09/13/2022 [facility] DATE CREATED AUTHOR AUTHOR'S ORGANIZ ATION 02/28/2024 [facility] DATE CREATED AUTHOR AUTHOR'S ORGANIZ ATION 03/12/2024 [facility] Reason for Visit (unrecogniz ed section and content) Specialty Diagnoses / Procedures Referred By Genoveva bowers Referred To Contact Diagnoses New onset seizure (HCC) new onset seizure [facility] [address] [place] [address] [facility] [address] [place] [address] Referral ID Status Reason Start Date Expiration Date Visits Re quested Visits Authorized [id number] 1 1 Ordered Prescriptions (unrec ognized section [...] CrCl less than 30ml/min, On hold since [facility] 02/29/2024 at 1438 until manually unheld [...] BE BASED ON THE PRIMARY CLINICAL RECORDS. [employer] provides no warranty or guarantee of the accuracy or completeness of information in this document.
[2024-03-21 09:44] LABS: Anion Gap 13.3; BUN Creatinine Ratio 8.9; Calcium 9.5 mg/dL (8.5-10.1); Carbon Dioxide 27.6 mmol/L (21.0-32.0); Chloride 103 mmol/L (98-107); Estimated GFR (African America >60 (>=60 mL/min/1.73m^2); Estimated GFR (Non-African Ame >60 (>=60 mL/min/1.73m^2); Glucose 88 mg/dL (74-106); Potassium 3.9 mmol/L (3.5-5.1); Sodium 140 mmol/L (136-145)
== END 2024-03-21 07:20 | disposition home or self-care (01) ==
LOC: US 07:19
PROVIDERS: PCP Family Medicine; Visit Provider Family Medicine
DX: N28.9 Disorder of kidney and ureter, unspecified (principal); N20.0 Calculus of kidney; R56.9 Unspecified convulsions
CPT/HCPCS: 36415; 76770; 80048

== ENCOUNTER 2024-04-01 11:49 | Outpatient (RCR) | payer MEDICAID, SELFPAY ==
[2024-04-01 12:11] LABS: Basophils Percent Auto 0.7 % (0.2-2.0); Eosinophils Absolute Auto 0.2 10^3/uL (0.0-0.7); Hematocrit 41.1 % (42.0-54.0); Hemoglobin 13.8 g/dL (14.0-18.0); Immature Granulocytes Abs Auto 0.02 10^3/uL (0.00-0.03); Immature Granulocytes Pct Auto 0.4 % (0.0-0.5); Lymphocytes Absolute Auto 1.6 10^3/uL (1.2-3.8); Lymphocytes Percent Auto 28.7 % (20.5-60.0); Mean Corpuscular HGB Conc 33.6 g/dL (29.9-35.2); Mean Corpuscular Hemoglobin 30.7 pg (25.9-34.0); Mean Corpuscular Volume 91.5 fL (80.0-94.0); Mean Platelet Volume 9.8 fL (9.5-13.5); Monocytes Absolute Auto 0.4 10^3/uL (0.3-0.8); Monocytes Percent Auto 6.8 % (1.7-12.0); Neutrophils Absolute Auto 3.3 10^3/uL (1.4-6.5); Neutrophils Percent Auto 60.4 % (43.0-75.0); Platelet Count 183 10^3/uL (150-450); Red Blood Count 4.49 10^6/uL (4.70-6.10); Red Cell Distribution Width 13.5 % (11.0-15.0); White Blood Count 5.4 10^3/uL (4.0-11.0)
[2024-04-01 12:58] LABS: Alanine Aminotransferase 28 U/L (16-63); Albumin Globulin Ratio 1.1; Albumin Level 3.9 g/dL (3.4-5.0); Alkaline Phosphatase 68 U/L (46-116); Anion Gap 14.3; Aspartate Amino Transferase 13 U/L (15-37); Bilirubin Total 0.4 mg/dL (0.2-1.0); Calcium 9.8 mg/dL (8.5-10.1); Carbon Dioxide 25.8 mmol/L (21.0-32.0); Chloride 105 mmol/L (98-107); Estimated GFR (African America >60 (>=60 mL/min/1.73m^2); Estimated GFR (Non-African Ame >60 (>=60 mL/min/1.73m^2); Globulin 3.5 g/dL; Glucose 94 mg/dL (74-106); Potassium 4.1 mmol/L (3.5-5.1); Sodium 141 mmol/L (136-145); Total Protein 7.4 g/dL (6.4-8.2)
[2024-04-08 11:49] LABS: Basophils Percent Auto 0.5 % (0.2-2.0); Eosinophils Percent Auto 0.5 % (0.9-7.0); Hematocrit 40.8 % (42.0-54.0); Hemoglobin 13.8 g/dL (14.0-18.0); Immature Granulocytes Abs Auto 0.03 10^3/uL (0.00-0.03); Immature Granulocytes Pct Auto 0.4 % (0.0-0.5); Lymphocytes Absolute Auto 1.4 10^3/uL (1.2-3.8); Lymphocytes Percent Auto 16.4 % (20.5-60.0); Mean Corpuscular HGB Conc 33.8 g/dL (29.9-35.2); Mean Corpuscular Hemoglobin 30.8 pg (25.9-34.0); Mean Corpuscular Volume 91.1 fL (80.0-94.0); Mean Platelet Volume 9.5 fL (9.5-13.5); Monocytes Absolute Auto 0.3 10^3/uL (0.3-0.8); Monocytes Percent Auto 3.8 % (1.7-12.0); Neutrophils Absolute Auto 6.6 10^3/uL (1.4-6.5); Neutrophils Percent Auto 78.4 % (43.0-75.0); Platelet Count 245 10^3/uL (150-450); Red Blood Count 4.48 10^6/uL (4.70-6.10); Red Cell Distribution Width 13.5 % (11.0-15.0); White Blood Count 8.4 10^3/uL (4.0-11.0)
[2024-04-08 12:01] LABS: Alanine Aminotransferase 26 U/L (16-63); Albumin Globulin Ratio 1.3; Albumin Level 4.1 g/dL (3.4-5.0); Alkaline Phosphatase 58 U/L (46-116); Anion Gap 13.3; Aspartate Amino Transferase 11 U/L (15-37); BUN Creatinine Ratio 11.5; Bilirubin Total 0.4 mg/dL (0.2-1.0); Carbon Dioxide 23.6 mmol/L (21.0-32.0); Chloride 105 mmol/L (98-107); Estimated GFR (African America >60 (>=60 mL/min/1.73m^2); Estimated GFR (Non-African Ame >60 (>=60 mL/min/1.73m^2); Globulin 3.2 g/dL; Glucose 103 mg/dL (74-106); Potassium 3.9 mmol/L (3.5-5.1); Sodium 138 mmol/L (136-145); Total Protein 7.3 g/dL (6.4-8.2)
[2024-04-17 10:33] LABS: Basophils Absolute Auto 0.1 10^3/uL (0.0-0.1); Basophils Percent Auto 0.7 % (0.2-2.0); Eosinophils Absolute Auto 0.1 10^3/uL (0.0-0.7); Eosinophils Percent Auto 1.6 % (0.9-7.0); Hematocrit 42.7 % (42.0-54.0); Hemoglobin 14.3 g/dL (14.0-18.0); Immature Granulocytes Abs Auto 0.02 10^3/uL (0.00-0.03); Immature Granulocytes Pct Auto 0.3 % (0.0-0.5); Lymphocytes Absolute Auto 1.9 10^3/uL (1.2-3.8); Lymphocytes Percent Auto 26.5 % (20.5-60.0); Mean Corpuscular HGB Conc 33.5 g/dL (29.9-35.2); Mean Corpuscular Hemoglobin 31.1 pg (25.9-34.0); Mean Corpuscular Volume 92.8 fL (80.0-94.0); Mean Platelet Volume 9.5 fL (9.5-13.5); Monocytes Absolute Auto 0.4 10^3/uL (0.3-0.8); Neutrophils Absolute Auto 4.8 10^3/uL (1.4-6.5); Neutrophils Percent Auto 64.9 % (43.0-75.0); Platelet Count 249 10^3/uL (150-450); Red Cell Distribution Width 13.5 % (11.0-15.0); White Blood Count 7.3 10^3/uL (4.0-11.0)
[2024-04-17 11:35] LABS: Alanine Aminotransferase 24 U/L (16-63); Albumin Globulin Ratio 1.3; Albumin Level 4.1 g/dL (3.4-5.0); Alkaline Phosphatase 51 U/L (46-116); Anion Gap 13.8; Aspartate Amino Transferase 16 U/L (15-37); BUN Creatinine Ratio 12.5; Bilirubin Total 0.6 mg/dL (0.2-1.0); Chloride 105 mmol/L (98-107); Estimated GFR (African America >60 (>=60 mL/min/1.73m^2); Estimated GFR (Non-African Ame >60 (>=60 mL/min/1.73m^2); Globulin 3.2 g/dL; Glucose 90 mg/dL (74-106); Potassium 3.8 mmol/L (3.5-5.1); Sodium 140 mmol/L (136-145); Total Protein 7.3 g/dL (6.4-8.2)
[2024-04-25 10:42] LABS: Basophils Percent Auto 0.8 % (0.2-2.0); Eosinophils Absolute Auto 0.2 10^3/uL (0.0-0.7); Eosinophils Percent Auto 3.2 % (0.9-7.0); Hematocrit 41.7 % (42.0-54.0); Hemoglobin 14.1 g/dL (14.0-18.0); Immature Granulocytes Abs Auto 0.01 10^3/uL (0.00-0.03); Immature Granulocytes Pct Auto 0.2 % (0.0-0.5); Lymphocytes Absolute Auto 1.5 10^3/uL (1.2-3.8); Lymphocytes Percent Auto 28.4 % (20.5-60.0); Mean Corpuscular HGB Conc 33.8 g/dL (29.9-35.2); Mean Corpuscular Hemoglobin 30.9 pg (25.9-34.0); Mean Corpuscular Volume 91.2 fL (80.0-94.0); Mean Platelet Volume 9.6 fL (9.5-13.5); Monocytes Absolute Auto 0.4 10^3/uL (0.3-0.8); Monocytes Percent Auto 7.2 % (1.7-12.0); Neutrophils Absolute Auto 3.2 10^3/uL (1.4-6.5); Neutrophils Percent Auto 60.2 % (43.0-75.0); Platelet Count 226 10^3/uL (150-450); Red Blood Count 4.57 10^6/uL (4.70-6.10); Red Cell Distribution Width 13.1 % (11.0-15.0); White Blood Count 5.3 10^3/uL (4.0-11.0)
[2024-04-25 11:21] LABS: Alanine Aminotransferase 26 U/L (16-63); Albumin Globulin Ratio 1.2; Albumin Level 3.8 g/dL (3.4-5.0); Alkaline Phosphatase 65 U/L (46-116); Anion Gap 13.8; Aspartate Amino Transferase 6 U/L (15-37); BUN Creatinine Ratio 8.7; Bilirubin Total 0.4 mg/dL (0.2-1.0); Carbon Dioxide 26.1 mmol/L (21.0-32.0); Chloride 106 mmol/L (98-107); Estimated GFR (African America >60 (>=60 mL/min/1.73m^2); Estimated GFR (Non-African Ame >60 (>=60 mL/min/1.73m^2); Globulin 3.1 g/dL; Glucose 85 mg/dL (74-106); Potassium 3.9 mmol/L (3.5-5.1); Sodium 142 mmol/L (136-145); Total Protein 6.9 g/dL (6.4-8.2)
[2024-04-29 10:58] LABS: Basophils Percent Auto 0.6 % (0.2-2.0); Eosinophils Absolute Auto 0.2 10^3/uL (0.0-0.7); Hematocrit 41.3 % (42.0-54.0); Hemoglobin 14.3 g/dL (14.0-18.0); Immature Granulocytes Abs Auto 0.02 10^3/uL (0.00-0.03); Immature Granulocytes Pct Auto 0.3 % (0.0-0.5); Lymphocytes Absolute Auto 1.8 10^3/uL (1.2-3.8); Lymphocytes Percent Auto 26.5 % (20.5-60.0); Mean Corpuscular HGB Conc 34.6 g/dL (29.9-35.2); Mean Corpuscular Hemoglobin 31.6 pg (25.9-34.0); Mean Corpuscular Volume 91.2 fL (80.0-94.0); Mean Platelet Volume 9.9 fL (9.5-13.5); Monocytes Absolute Auto 0.4 10^3/uL (0.3-0.8); Monocytes Percent Auto 6.6 % (1.7-12.0); Neutrophils Absolute Auto 4.2 10^3/uL (1.4-6.5); Platelet Count 213 10^3/uL (150-450); Red Blood Count 4.53 10^6/uL (4.70-6.10); Red Cell Distribution Width 12.9 % (11.0-15.0); White Blood Count 6.6 10^3/uL (4.0-11.0)
[2024-04-29 11:15] LABS: Alanine Aminotransferase 33 U/L (16-63); Albumin Globulin Ratio 1.3; Albumin Level 3.9 g/dL (3.4-5.0); Alkaline Phosphatase 64 U/L (46-116); Anion Gap 11.3; Aspartate Amino Transferase 18 U/L (15-37); BUN Creatinine Ratio 14.5; Bilirubin Total 0.4 mg/dL (0.2-1.0); Calcium 9.2 mg/dL (8.5-10.1); Carbon Dioxide 30.1 mmol/L (21.0-32.0); Chloride 104 mmol/L (98-107); Estimated GFR (African America >60 (>=60 mL/min/1.73m^2); Estimated GFR (Non-African Ame >60 (>=60 mL/min/1.73m^2); Globulin 3.1 g/dL; Glucose 82 mg/dL (74-106); Potassium 4.4 mmol/L (3.5-5.1); Sodium 141 mmol/L (136-145)
== END 2024-04-30 10:42 | disposition home or self-care (01) ==
LOC: LAB 11:49
PROVIDERS: PCP Family Medicine; Visit Provider Family Medicine
DX: R56.9 Unspecified convulsions (principal)
CPT/HCPCS: 36415; 80053; 82728; 83540; 85025

== ENCOUNTER 2024-04-01 12:01 | Emergency (ER) | payer MEDICAID, SELFPAY ==
[2024-04-01 12:04] VITALS: BP 154/79; PULSE 79; TEMP 36.4; O2SAT 96; BMI 32.6
--- NOTE | 2024-04-01 12:18 | ED.GENADUL1 ---
HPI HPI - General Adult General Chief complaint: Headache Stated complaint: migraine Time Seen by Provider: 04/01/24 12:11 Source: patient Mode of arrival: walk-in Limitations: no limitations History of Present Illness HPI narrative: 33-year-old male presents for headache that has had for more than a month. He states he had an MRI of his head 2 weeks ago and it was negative. He states it feels like a bulge is going in 1 yarsanism and coming out the other and it has getting tight. No fever or trauma or localized weakness. He saw a neurologist recently for this as well and was prescribed a medication but it needed a prior authorization in the patient has not been able to get it. Related Data Home Medications ?Medication ?Instructions ?Recorded ?Confirmed ondansetron HCl 4 mg tablet 4 mg PO Q6H PRN nausea and vomiting 05/11/23 03/07/24 ferrous sulfate 325 mg (65 mg 325 mg PO DAILY 03/07/24 03/07/24 iron) tablet (FeroSul) hydrocodone 5 mg-acetaminophen 325 1 tab PO Q6H PRN pain 03/07/24 03/07/24 mg tablet ketorolac 10 mg tablet 10 mg PO Q6H PRN pain 03/07/24 03/07/24 Previous Rx's ?Medication ?Instructions ?Recorded hydrocodone 5 mg-acetaminophen 325 1 tab PO Q6H PRN pain 3 days #10 04/01/24 mg tablet tabs Allergies Allergy/AdvReac Type Severity Reaction Status Date / Time naproxen Allergy Unknown Abdominal Verified 02/11/24 22:50 Pain Opioid HPI Opioid Management Most Recent Opioid Data: Last Pain Scale 5 04/01/24 13:20 04/01/24 Last MAR Pain Assessment 04/01/24 13:20 Review of Systems ROS Narrative A ten point review of systems is negative except as noted above. PFSH PFSH Social History Smoking status: Current every day smoker Little interest or pleasure in doing things: not at all Feeling down, depressed, or hopeless: not at all Exam Narrative Exam Narrative: Nurses note and vital signs reviewed and patient is not hypoxic. General: The patient appears uncomfortable Skin: Warm, dry, no pallor noted. There is no rash noted. Head: Normocephalic, atraumatic; neck supple no nuchal rigidity Eye: Normal conjunctiva, no drainage Ears, Nose, Mouth, and Throat: oral mucosa is moist. Nares patent. Cardiovascular: Regular Rate and Rhythm Respiratory: Patient is in no distress, no accessory muscle use, lungs are clear to auscultation, no wheezing, rales or rhonchi Back: non-tender GI: Soft and nontender Musculoskeletal: The patient has no evidence of calf tenderness, no pitting edema, symmetrical pulses noted bilaterally Neurological: A&O, normal speech, motor strength intact Psychiatric: Cooperative Constitutional Vital Signs, click to edit/add: Last Vital Signs Temp 97.5 F L 04/01/24 12:04 Pulse 79 04/01/24 12:04 Resp 18 04/01/24 12:04 BP 154/79 H 04/01/24 12:04 Pulse Ox 96 04/01/24 12:04 O2 Del Method Room Air 04/01/24 12:04 Course Vital Signs Vital signs: Vital Signs Temperature 97.5 F L 04/01/24 12:04 Pulse Rate 79 04/01/24 12:04 Respiratory Rate 18 04/01/24 12:04 Blood Pressure 154/79 H 04/01/24 12:04 Pulse Oximetry 96 04/01/24 12:04 Oxygen Delivery Method Room Air 04/01/24 12:04 Temperature 97.5 F L 04/01/24 12:04 Pulse Rate 79 04/01/24 12:04 Respiratory Rate 18 04/01/24 12:04 Blood Pressure 154/79 H 04/01/24 12:04 Pulse Oximetry 96 04/01/24 12:04 Oxygen Delivery Method Room Air 04/01/24 12:04 Medical Decision Making MDM Narrative Medical decision making narrative: The patient was given Toradol, Solu-Medrol, Zofran, and Benadryl and had improvement. He was given 4 mg of IV morphine and his pain is now down to a 4 and he is able to be discharged home. The patient was sent in a prescription for 10 [place] and I discussed the case with his PCP as well. Treatment diagnosis and follow-up were discussed with the patient. He had a recent normal MRI and additionally have no clinical suspicion of acute intracranial pathology. Differential Diagnosis Differential Diagnosis: Migraine headache, nonspecific headache Medical Records Medical records reviewed: Yes I reviewed the patient's medical records Discharge Plan Discharge Chief Complaint: Headache Clinical Impression: Headache Patient Disposition: Home, Self-Care Time of Disposition Decision: 13:54 Condition: Good Mode of Transportation: Private Vehicle Prescriptions / Home Meds: New hydrocodone-acetaminophen 5-325 mg tablet 1 tab PO Q6H PRN (Reason: pain) 3 Days Qty: 10 0RF No Action ondansetron HCl 4 mg tablet 4 mg PO Q6H PRN (Reason: nausea and vomiting) ferrous sulfate [FeroSul] 325 mg (65 mg iron) tablet 325 mg PO DAILY hydrocodone-acetaminophen 5-325 mg tablet 1 tab PO Q6H PRN (Reason: pain) ketorolac 10 mg tablet 10 mg PO Q6H PRN (Reason: pain) Print Language: Luxembourgish Instructions: Acute Headache (ED) Referrals: Jc Guzman MD [Primary Care Provider] - 1 week
[2024-04-01] MEDS: METHYLPREDNISOLONE SOD SUCC PF 125 MG/2 ML VIAL IVP (12:26)
[2024-04-01] MEDS: KETOROLAC TROMETHAMINE 30 MG/ML VIAL IVP (12:26)
[2024-04-01] MEDS: MAGNESIUM SULFATE IN WATER 2 GM/50 ML PREMIX IV (12:26)
[2024-04-01] MEDS: DIPHENHYDRAMINE HCL 50 MG/ML VIAL 25 MG IV (12:27)
[2024-04-01] MEDS: MORPHINE SULFATE 4 MG/ML VIAL IV (13:20)
[2024-04-01 14:02] VITALS: BP 107/59; PULSE 92; O2SAT 98
== END 2024-04-01 14:06 | disposition home or self-care (01) ==
PROVIDERS: Emergency Provider Emergency Medicine; PCP Family Medicine
DX: R51.9 Headache, unspecified (principal); F17.200 Nicotine dependence, unspecified, uncomplicated
CPT/HCPCS: 96365; 96375; 99284; J1200; J1885; J2270; J2919; J3475

== ENCOUNTER 2024-04-01 23:01 | Emergency (ER) | payer MEDICAID, SELFPAY ==
[2024-04-01 23:05] VITALS: BP 148/96; PULSE 117; TEMP 36.4; O2SAT 96; BMI 32.2
[2024-04-01 23:06] VITALS: BP 148/96
--- NOTE | 2024-04-01 23:24 | ED_ITS ---
HPI HPI - General Adult General Chief complaint: Headache Stated complaint: SEIZURE Time Seen by Provider: 04/01/24 23:24 Source: patient Mode of arrival: Wheelchair Limitations: no limitations History of Present Illness HPI narrative: Patient presenting to the emergency department for evaluation of potential seizure. Patient states that approximately 1 month ago he had his first time se jamal. States that since that time has had a migraine. States has been present all day every day for the last 1 month. Patient states that he has also been having seizures since then. Was put on medications, antiepileptics by Dr. Klein. He has been put on migraine medications. He has been switched off of both by his neurologist. He has an EEG scheduled on Monday, approximately 36 hours from now. Patient states that he was told to stop taking his antiepileptics, and switch to lamotrigine to see if he would start seizing and it would also not suppress everything to be able to get his EEG done. He states that earlier today he thinks he had a seizure at home, lying in bed. His friend drove him to the hospital today, and she witnessed a generalized tonic-clonic seizure lasting approximately 1 minute, she states he came out of it and he was able to talk to her, was very mildly confused for couple seconds but knew he was on his way to the hospital, came out of it over several seconds. Was not postictal really after that. No tongue biting. Patient states that they are not sure if he is having actual seizures or not, and he has an EEG scheduled for this Monday to see. Patient states that he would like to be admitted here and wait until his EEG then. I discussed with patient that we do not have neurology, and that his hand started shaking. Patient does state that tonight when both seizures happened he was aware of what is happening, he was awake and alert felt like his body was shaking could not stop it. Patient states that other than the chronic migraines had for approximately 1 month, nothing is bothering him at this time. Related Data Home Medications ?Medication ?Instructions ?Recorded ?Confirmed ferrous sulfate 325 mg (65 mg 325 mg PO DAILY 03/07/24 04/01/24 iron) tablet (FeroSul) lamotrigine 25 mg tablet mg 04/01/24 rizatriptan 10 mg tablet mg 04/01/24 topiramate 50 mg tablet mg 04/01/24 Allergies Allergy/AdvReac Type Severity Reaction Status Date / Time naproxen Allergy Unknown Abdominal Verified 02/11/24 22:50 Pain Opioid HPI Opioid Management Most Recent Opioid Data: Last Pain Scale 10 04/02/24 00:04 04/02/24 Last MAR Pain Assessment 04/02/24 00:04 Review of Systems ROS Narrative Negative unless otherwise stated in the HPI PFSH PFS Social History Smoking status: Current every day smoker Little interest or pleasure in doing things: not at all Feeling down, depressed, or hopeless: not at all Exam Narrative Exam Narrative: General: NAD, AAOx3, no distress Eyes: PERRL, EOMI, lids/conjunctiva normal. HEENT: NCAT Respiratory: respiratory effort normal, speaks in full sentences, no tripod position, no accessory muscle use. Lungs clear to auscultation without rhonchi, wheezes, rales Cardiac: Regular rate and rhythm, no edema, regular s1/s2, no m/g/r Abdomen: Soft, ND/NT. No evidence of fluid wave. No pulsatile masses on exam, rebound tenderness, Vegas sign or pain over Mcburney's point. Neuro: Speech is clear and appropriate. Normal level of consciousness. Gait and coordination are normal. 5/5 strength in all extremities. Constitutional Vital Signs, click to edit/add: Last Vital Signs Temp 97.6 F 04/01/24 23:05 Pulse 85 04/02/24 01:04 Resp 21 H 04/01/24 23:42 BP 97/61 04/02/24 01:10 Pulse Ox 96 04/01/24 23:05 O2 Del Method Room Air 04/01/24 23:05 Course Vital Signs Vital signs: Vital Signs Temperature 97.6 F 04/01/24 23:05 Pulse Rate 117 H 04/01/24 23:05 Respiratory Rate 18 04/01/24 23:05 Blood Pressure 148/96 H 04/01/24 23:05 Pulse Oximetry 96 04/01/24 23:05 Oxygen Delivery Method Room Air 04/01/24 23:05 Temperature 97.6 F 04/01/24 23:05 Pulse Rate 85 04/02/24 01:04 Respiratory Rate 21 H 04/01/24 23:42 Blood Pressure 97/61 04/02/24 01:10 Pulse Oximetry 96 04/01/24 23:05 Oxygen Delivery Method Room Air 04/01/24 23:05 Medical Decision Making MDM Narrative Medical decision making narrative: MDM Patient with history as above presented with seizure. History obtained from patient. Patient was nontoxic, stable. Ambulatory. Exam as above. EKG reviewed. Labs reviewed. Reviewed external records. Differential diagnosis considered. Overall presentation is consistent with seizure or pseudoseizure I discussed the patient would not have neurology here, the patient has an EEG scheduled for , IV fluids and Toradol were given for migraine. Chart was reviewed, multiple workups, MRI, symptoms are unchanged for the last month, no indication for repeat imaging at this time. 0107 workup in the ED showing no acute abnormalities. Heart rate improved with IV fluids, pain improved with Tylenol. EKG was noted and discussed given his syncopal episodes over the last month, he is going to be following with cardiology that was recommended by Dr. Guzman as well as neurology. Findings were noted disc. Headache is improved. Advanced guidance has been given. Vss, pex is benign at this time. Pt to fu with pcp 1-2 days for reeval, rter should sx worsen, persist or become worrysome in any way. All incidental laboratory studies, EKG, radiologic findings have been noted and discussed with patient. Patient was reevaluated with a benign exam at this time. Pt expressed understanding and agreement with plan of care at this time. Will fu as planned. Pt stable for discharge. Lab Data Labs: Lab Results 04/02/24 04/02/24 Range/Units 00:10 00:27 Sodium 138 (136-145) mmol/L Potassium 4.2 (3.5-5.1) mmol/L Chloride 104 (98-107) mmol/L Carbon Dioxide 23.3 (21.0-32.0) mmol/L Anion Gap 14.9 BUN 17.0 (7.0-18.0) mg/dL Creatinine 1.45 H (0.70-1.30) mg/dL Est GFR ( Amer) >60 (>=60 mL/min/1.73m^2) Est GFR (Non-Af Amer) 57 L (>=60 mL/min/1.73m^2) BUN/Creatinine Ratio 11.7 Glucose 235 H (74-106) mg/dL Lactate 1.9 (0.4-2.0) mmol/L Calcium 9.3 (8.5-10.1) mg/dL Magnesium 2.0 (1.8-2.4) mg/dL Discharge Plan Discharge Chief Complaint: Headache Clinical Impression: Headache, Seizure Patient Disposition: Home, Self-Care Time of Disposition Decision: 01:19 Condition: Good Prescriptions / Home Meds: No Action ferrous sulfate [FeroSul] 325 mg (65 mg iron) tablet 325 mg PO DAILY rizatriptan 10 mg tablet lamotrigine 25 mg tablet topiramate 50 mg tablet Print Language: Zambian Instructions: Acute Headache (DC), Near Syncope (ED), Recurrent Seizures in Adults (ED) Additional Instructions: Follow-up with your PCP in the next 1 to 2 days. Return to the emergency dep artment should symptoms worsen or become worrisome in any way. Follow-up on Monday for your EEG as previously scheduled Referrals: Jc Guzman MD [Primary Care Provider] - 1 week
--- NOTE | 2024-04-01 23:26 | ECG_ITS ---
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
--- OUTSIDE RECORDS SUMMARY | 2024-04-01 23:33 | XMS_ITS | CCD ---
Author Organization [facility] Care Team Providers Care Social Work Professor Name Role Phone Latricia Garcia Primary Care Physician Shirley Murrell Attending Unavailable Lue Shirley MJoselin Referring Unavailable Lue, Shirley MJoselin Admitting Unavailable Lue Shirley MJoselin Attending Unavailable Lue, Shirley MJoselin Referring Unavailable Lue, Shirley MJoselin Attending Unavailable Lue Shirley MJoselin Attending Unavailable HOY ., DR ROME Primary Care Unavailable RADHA ., DR ROME Consulting Unavailable RADHA ., DR ROME Admitting Unavailable RADHA ., DR ROME Attending Unavailable MAXIMO, DR SAUMYA Forrester Consulting Unavailable HORTENCIA, DR STEPAN Jerome Consulting Unavailable GATITO ., MR GUEVARA Consulting Unavailable CHAGO ROLLINS Consulting Unavailable ROSALINO VIDALES Consulting Unavailable EDIS HERNÁNDEZ Consulting Unavailable RAMO ZEPEDA Consulting Unavailable LUE ., SHIRLEY M Consulting Unavailable JADA PEREIRA Consulting Unavailable MAUREEN GARDNER Consulting Unavailable HELGA BAINS Consulting Unavailable LUE ., SHIRLEY M Admitting Unavailable LUE ., SHIRLEY M Attending Unavailable RADHA ., DR ROME Primary Care Unavailable LOU, DR RAMO Hopson Consulting Unavailable MAXIMO, DR SAUMYA Forrester Consulting Unavailable LUE ., SHIRLEY Donovan Consulting Unavailable RADHA ., DR ROME Primary [...] BRUCE RAMIREZ Attending Unavailable PANDA .LEORA Consulting UnavailMarcus Olviera, DR ROME Primary Care Unavailable SHANNON, DR MADDIE Forrester Admitting Unavailable DR MADDIE ORTEGA Attending Unavailable DR MADDIE ORTEGA Consulting Unavailable SHARON GODINEZ Consulting Unavailable Latricia Garcia MD Primary Care Provider [phone] MICHELLE, JON E Referring Unavailable HOY, LATRICIA [...] Unavailable HOY, LATRICIA M Primary Care Unavailable MIHCELLE, JON E Referring Unavailable HOY, LATRICIA M Primary Care Unavailable MICHELLE, JON E Referring Unavailable HOY, LATRICIA M Primary Care Unavailable MICHELLE, JON E Referring Unavailable AMY, DOLORES Attending Unavailable HOY, LATRICIA M Primary Care Unavailable HOY, LATRICIA M Primary Care Unavailable MICHELLE, JON E Attending Unavailable MICHELLE, JON E Admitting Unavailable KYM VIDAL Admitting Unavailable RUTH WYMAN Attending Unavailable AMY, ODLORES Referring Unavailable RONDA HAWLEY Consulting Unavaila ble HOY, LATRICIA M Primary Care Unavailable Latricia Garcia MD Primary Care Provider [phone] ARMANDO MEEK Attending Unavailable HOY, LATRICIA M Referring Unavailable HOY, LATRICIA M Primary Care Unavailable Allergies Allergy Classification Reported Allergen(s) Allergy Type Date of Onset Reaction(s) Facility (10 sources) Naproxen; Translations: [naproxen] Drug Allergy 3 Unknown (qualifier value), Nausea And Vomiting [facility] (1 source) Naproxen Drug Allergy [facility] Repository Medications Current Medications Medication Drug Class(es) Dates Sig (Normalized) Sig (Original) Acetaminophen (1 source) Start: 02-27-2024 acetaminophen (TYLENOL) tablet 650 mg acetaminophen 325 mg / HYDROcodone bitartrate 5 mg oral tablet (2 sources) Opioid Agonist Start: 03-02-2024 End: 03-05-2024 take 1 tablet by mouth every six hours as needed for pain, then take 4 tablets by mouth once daily as needed for pain HYDROcodone-acetam inophen (NORCO) 5-325 mg per tablet TAKE 1 TABLET BY MOUTH EVERY 6 HOURS NEEDED FOR PAIN (TAKE lowest dose possible to manage pain max DAILY amount FOUR TABLETS) 03/02/2024 Active 100 ml calcium gluconate 20 mg/ml [...] Start: 05-12-2022 take 1 capsule by [facility] every twenty-four hours Keflex 500 mg Cap 500 mg = 1 cap(s), Oral, q24hr, Take 1 pill the day before the procedure and 1 pill after the procedure., # 2 cap(s), Refills(s) 0, Pharmacy: [id number] Start Date: 05/12/22 Status: Ordered 0.4 [...] to any invasive procedure., On hold since [facility] 02/29/2024 at 1050 until manually unheld ferrous sulfate 325 mg oral tablet (3 sources) Start: 03-02-2024 take 1 tablet by mouth once daily at breakfast ferrous sulfate (IRON 325) 325 (65 Fe) MG tablet Take 1 tablet by mouth daily (with breakfast) 30 tablet 1 03/02/2024 Active Start: 02-29-2024 ferrous sulfat e 325 (65 FE) mg tablet Take 1 tablet (325 mg total) by mouth. 03/02/2024 Active gabapentin 600 mg oral tablet (4 sources) [...] disposal. ondansetron 4 mg disintegrating oral tablet (3 sources) Serotonin-3 Receptor Antagonist Start: 01-31-2024 ondansetron ODT (ZOFRAN ODT) 4 mg disintegrating tablet Dissolve 1 tablet (4 mg total) on tongue. 01/31/2024 Active Start: 07-21-2022 take 1 tablet [...] by mouth nightly Active polyethylene glycol 3350 92358 mg powder for oral solution (2 sources) Osmotic Laxative Start: 02-27-2024 End: 05-03-2024 take 1 dose by mouth once daily as needed for constipation polyethylene glycol (GLYCOLAX) 17 g packet Take 1 packet by mouth daily as needed for Constipation 527 g 1 03/02/2024 05/03/2024 Active Potassium Chloride (1 source) Start: 02-27-2024 potassium chloride (KLOR-CON M) extended release tablet 40 mEq rimegepant 75 mg disintegrating oral tablet (1 source) Start: 03-26-2024 rimegepant (NURTEC ODT) 75 mg tablet,disintegrati ng Indications: Migraine without aura and without status migrainosus, not intractable Dissolve 1 tablet on tongue as needed (migraine). Maximum of 1 dose per 24 hours 8 tablet 5 03/26/2024 Active tamsulosin hydrochloride 0.4 mg oral capsule (1 source) alpha-Adrenerg ic Mic Start: 07-21-2022 take 1 capsule by mouth once daily tamsulosin 0.4 mg Cap 0.4 mg = 1 cap(s), Oral, Daily, # 30 cap(s), Refills(s) 0, called to pharmacy (Rx) Start Date: 07/21/22 Status: Ordered topiramate 50 mg oral tablet (1 source) Start: 03-26-2024 topiramate (TOPAMAX) 50 mg tablet Indications: Migraine without aura and without status migrainosus, not intractable , Status migrainosus Take 1 tablet (50 mg) nightly for 2 weeks, then increase to 1 tablet (50 mg) twice daily 60 tablet 5 03/26/2024 Active divalproex sodium 500 mg delayed release oral [...] at 1822, Until Mon02/28/24 at 1822, Other lamoTRIgine 25 mg oral tablet (1 source) Mood Stabilizer, Anti-epilept ic Agent Start: 03-15-2024 End: 03-26-2024 lamoTRIgine (LaMICtal) 25 mg tablet Take 1 tablet (25 mg total) by mouth. 03/15/2024 03/26/2024 Discontinued 100 ml magnesium sulfate 10 mg/ml injection [...] CrCl less than 30ml/min, On hold since Mon02/29/2024 at 1438 until manually unheld methocarbamol 750 [...] on Mon03/02/24 at 0930, Until Discontinued, Pain rizatriptan 10 mg oral tablet (1 source) Serotonin-1b and Serotonin-1d Receptor Agonist End: 03-26-2024 rizatriptan (MAXALT) 10 mg tablet Take 1 tablet (10 mg total) by mouth once as needed for migraine. May repeat in 2 hours if unresolved. Do not exceed 30 mg in 24 hours. 03/26/2024 Discontinued 5 ml sodium chloride 9 mg/ml injection (3 sources) Start: 02-27-2024 10 mL, IntraVENous, EVERY 12 HOURS SCHEDULED [...] Onset: 07-06-2022 Episodic Deficiency and other anemia (5 sources) Pancytopenia; Translations: [Other pancytopenia] Onset: 02-28-2024 03-02-2024 Chronic Deficiency and other anemia (2 sources) Other pancytopenia; Translations: [Other pancytopenia] Onset: 02-28-2024 Chronic Diseases of white blood cells (1 source) Elevated white blood cell count, unspecified; Translations: [ELEVATED WHITE BLOOD CELL COUNT UNS] Onset: 07-14-2022 Chronic Epilepsy; convulsions (7 sources) Unspecified convulsions; Translations: [Seizure] Onset: 02-26-2024 02-26-2024 Episodic Fluid and electrolyte disorders (1 source) Dehydration; Translations: [DEHYDRATION] Onset: 07-14-2022 Episodic Headache; including migraine (5 sources) Migraine without aura, not refractory ; Translations: [Migraine without aura, not intractable, without status migrainosus] Onset: 03-26-2024 03-26-2024 Chronic Headache; including migraine (1 source) Headache; including [...] [SHORTNESS OF BREATH] Onset: 07-22-2022 Episodic Other nervous system disorders (1 source) Psychosomatic musculoskeletal symptoms; Translations: [Tremor, unspecified] 03-26-2024 Episodic Other non-traumatic joint disorders (1 source) [...] Translations: [Cannabis abuse, uncomplicated] Onset: 07-26-2022 Chronic Syncope (4 sources) Syncope symptom; Translations: [Syncope and collapse] Onset: 03-26-2024 03-26-2024 Episodic Unclassified (1 source) CONTACT W/AND (SUSP) EXPOS COVID-19; Translations: [CONTACT W/AND (SUSP) EXPOS COVID-19] Onset: 07-14-2022 Viral infection (2 sources) Herpes simplex 07-13-2022 Episodic Past or Other Problems Problem Classification Problem Date Documented Date Episodic/Chronic Joint disorders and dislocations; trauma-related (2 sources) Unspecified dislocation of right patella, initial encounter; Translations: [Unspecified dislocation of right patella, initial encounter] Onset: 06-09-2023 Episodic Mood disorders (1 source) Mood disorders Onset: 03-26-2024 03-26-2024 Residual codes; unclassified (1 source) Other specified postprocedural states; Translations: [Other specified postprocedural states] Onset: 03-13-2023 Episodic Results Test Name Value Interpretation Reference Range Facility DIAGNOSTIC QUAL BCR-ABL1 ASS AY W/ REFLEXon 03-12-2024 DIAGNOSTIC QUAL BCR-ABL1 ASSAY, RESULT Not detected Normal [facility] Comment on above: Result Comment: Ther e [...] gene is also amplified for specimen quality control microbiology supervisor and to ensure the integrity of RNA. [...] Transcripts Analytical Sensitivity Minor (e1a2) NCN = 0.80768 Major (e13a2) %IS = 0.0040 Major (e14a2) [...] developed and its performance characteristics determined by [facility]. It has not been cleared or approved by the U.S. Food and Drug Administration. This test was performed in a CLIA-certified laboratory and is intended for clinical purposes. Performed By: [facility] [address] [place] [address] Jar Filler: Sunny Roman MD, PhD CLIA Number: [id number] Performed By: #### D QBC2 #### [facility] [address] [facility] [address] DIAGNOSTIC QUAL BCR-ABL1 ASSAY, SOURCE Not Provided Normal [facility] Comment on above: Result Comment: AMEN DED on 03/12/24: Result in error was LAV Whole Blood, verified at 09:43 on 03/01/24. Performed By: #### D QBC2 #### [facility] [address] [facility] [address] CHROMOSOME ANAL. BONE MARROW on 03-11-2024 CHROMOSOME ANAL. BONE MARROW SEE BELOW Normal [facility] Comment on above: Result Comment: Technology Lead mosome Analysis, Bone Marrow See Note Normal [...] reviewed and approved by Akash Smith, PhD, [facility] A portion of this analysis was performed at the following location(s): [facility]1 [employer] [facility]1 [employer] [facility]1 INTERPRETIVE INFORMATION: Chromosome Analysis, Bone Marrow This test was developed and its performance characteristics determined by [facility]. It has not been cleared or approved by the US Food and Drug Administration. This test was performed in a CLIA certified laboratory and is intended for clinical purposes. EER Chromosome Analysis Bone Marrow See Note Authorized individuals can access the [employer] Enhanced Report using the following link: [email or web address] Performed By: [facility] [place] [address] Jar Filler: Sunny Roman MD, PhD CLIA Number: [id number] Performed By: #### M MMP, LPBM2, CRBM2 #### [facility] [address] [place] [address] MYELOID MALIGANCIES MUTATION PANEL BY [employer] 03-08-2024 EER MYELOID MALIGNANCIES PANEL BY NGS See Note Normal [facility] Comment on above: Result Comment: Auth orized individuals can access the [employer] Enhanced Report using the following link: [email or web address] Performed By: [facility] [address] [place] [address] Jar Filler: Sunny Roman MD, PhD CLIA Number: [id number] Performed By: #### M MMP, LPBM2, CRBM2 #### [facility] [address] [place] [id number] MYELOID MALIGNANCIES PANEL INTERP See Note Normal [facility] Comment on above: Result Comment: Myeloid Malignancies Mutation Panel NGS Submitted diagnosis or diagnosis under consideration for variant interpretation: Pancytopenia TIER 1: Variants of Known Clinical Significance in Hematologic Malignancies None found TIER 2: Variants of Unknown Clinical Significance in Hematologic Malignancies 1. NSD1 c.7576C>T, p.[id number] ([id number]) VAF: 49.0% This variant has not been reported in hematologic malignancies, to the best of our knowledge. 2. KMT2A c.5573G>A, p.[id number] ([id number]) VAF: 47.8% This variant has not been reported in hematologic malignancies, to the best of our knowledge. This result has been reviewed and approved by Zulay Abdi M.D. Low coverage regions: Listed below are regions where the average sequencing depth (number of times a particular nucleotide is sequenced) in at least 20% of the yxwiet-jr-pthlvdug is less than our stringent cutoff of [...] NOTCH1; NPM1*; NRAS; NSD1; PHF6; PIGA; PPM1D; GOSQ74X; PRPF8; PTPN11; RAD21; RUNX1; SAMD9; SAMD9L; SETBP1; [...] not included)... Performed By: #### M MMP, LPBM2, CRBM2 #### [facility] [address] [facility] [address] MYELOID MALIGNANCIES PANEL SPECIMEN Bone Marrow Normal [facility] Comment on above: Performed By: #### M MMP, LPBM2, CRBM2 #### [facility] [address] [facility] [address] MYELOID MALIGNANCY PROPOSED DIAGNOSIS Pancytopenia Normal [facility] Comment on above: Performed By: #### M MMP, LPBM2, CRBM2 #### [facility] [address] [facility] [address] LEUKEMIA/LYMPHOMA PHENO BLOO Don 03-05-2024 LEUKEMIA/LYMPHOMA PHENO BLOOD SEE BELOW Normal [facility] Comment on above: Result Comment: Leuk /Lymph [...] loss of CD16 without any other abnormality) Hepler:Lambda Ratio: approx. 2:1 CD4:CD8 Ratio: approx. 8:1 Viability: 58% Markers run: HLA-DR, Hepler, Lambda, CD2, CD3, CD4, CD5, CD7, CD8, CD10, CD11b, CD13, CD14, CD16, CD19, CD20, CD23, CD33, CD34, CD38, CD45, CD56, CD57, CD64, CD117, CD200 Num of Markers Run: 26 This result has been reviewed and approved by Kostas Miller M.D., Ph.D. 03/05/2024 INTERPRETIVE INFORMATION: Leuk/Lymph Phenotyping, Flow Cytometry This test was developed and its performance characteristics determined by [facility]. It has not been cleared or approved by the US Food and Drug Administration. This test was performed in a CLIA certified laboratory and is intended for clinical purposes. Performed By: [facility] [address] [place] [id number] Jar Filler: Sunny Roman MD, PhD [place] Number: [id number] Performed By: #### C , WSR #### [place] [address] LEUKEMIA/LYMPHOMA PHENO BONE MARROWon 03-03-2024 LEUKEMIA/LYMPHOMA PHENO BONE MARROW SEE BELOW Normal [facility] Comment on above: Result Comment: Leuk /Lymph [...] Viability: 82% Markers run: cKappa, cLambda, HLA-DR, Hepler, Lambda, CD2, CD3, CD4, CD5, CD7, CD8, CD10, CD11b, CD13, CD14, CD16, CD19, CD20, CD23, CD33, CD34, CD38, CD45, CD56, CD57, CD64, CD117, CD138, CD200 Num of Markers Run: 29 This result has been reviewed and approved by Kostas Miller M.D., Ph.D. 03/03/2024 INTERPRETIVE INFORMATION: Leuk/Lymph Phenotyping, Flow Cytometry This test was developed and its performance characteristics determined by [facility]. It has not been cleared or approved by the US Food and Drug Administration. This test was performed in a CLIA certified laboratory and is intended for clinical purposes. Performed By: [facility] [employer] [address] [place] [address] Jar Filler: Sunny Roman MD, PhD CLIA Number: [id number] Performed By: #### M MMP, LPBM2, CRBM2 #### [address] [address] ANION GAPon 03-02-2024 Anion gap [Moles/Vol] 9.0 mmol/L Normal 8.0-16.0 [facility] Comment on above: Result Comment: ANIO N GAP = Sodium -(Chloride + CO2) Performed By: #### C CANDY WSR #### [address] [address] Anion Gapon 03-02-2024 Anion gap [Moles/Vol] 9.0 mmol/L 8.0 - 16.0 meq/L [facility] Comment on above: ANION GAP = Sodium - (Chloride + CO2) Performed at [facility] [address] [place] [address] BASIC METABOL PANELon 2023 Calcium [Mass/Vol] 8.4 mg/dL Low 8.5-10.5 [facility] Comment on above: Performed By: #### Irene GUPTA, WSR #### [address] [address] Chloride [Moles/Vol] 100 mmol/L Normal 98-111 [facility] Comment on above: Performed By: #### C CANDY, WSR #### [facility] [address] [address] CO2 [Moles/Vol] 29 mmol/L Normal 23-33 [facility] Comment on above: Performed By: #### C RP, WSR #### [facility] [address] [place] [address] Creatinine [Mass/Vol] 0.9 mg/dL Normal 0.4-1.2 [facility] Comment on above: Performed By: #### C RP, WSR #### [facility] [address] [place] [address] Glucose [Mass/Vol] 103 mg/dL Normal 70-108 [facility] Comment on above: Performed By: #### C RP, WSR #### [facility] [address] [place] [address] Potassium [Moles/Vol] 3.7 mmol/L Normal 3.5-5.2 [facility] Comment on above: Performed By: #### C RP, WSR #### [facility] [address] [place] [address] Sodium [Moles/Vol] 138 mmol/L Normal 135-145 [facility] Comment on above: Performed By: #### C RP, WSR #### [facility] [address] [place] [address] Urea nitrogen [Mass/Vol] 10 mg/dL Normal 7-22 [facility] Comment on above: Performed By: #### C RP, WSR #### [facility] [address] [place] [address] Basic metabolic 2000 panelon 03-02-2024 Calcium [Mass/Vol] 8.4 mg/dL Low 8.5 - 10. 5 mg/dL [facility] Comment on above: Performed at [facility] [address] [place] [address] Chloride [Moles/Vol] 100 mmol/L 98 - 111 meq/L [facility] CO2 [Moles/Vol] 29 mmol/L 23 - 33 meq/L [facility] Creatinine [Mass/Vol] 0.9 mg/dL 0.4 - 1.2 mg/dL [facility] Glucose [Mass/Vol] 103 mg/dL 70 - 108 mg/dL [facility] Interpretation and review of laboratory results Abnormal [facility] Potassium [Moles/Vol] 3.7 mmol/L 3.5 - 5.2 meq/L [facility] Sodium [Moles/Vol] 138 mmol/L 135 - 145 meq/L [facility] Urea nitrogen [Mass/Vol] 10 mg/dL 7 - 22 mg/dL [facility] CBC WITH DIFFERENTIALon 11-0 ATYPICAL LYMPH OCC. Normal [facility] Comment on above: Performed By: #### Irene ANDRES, SCAN1 #### [facility] [address] [place] [address] PLATELET ESTIMATE SL DECREASED Normal Adequate [facility] Comment on above: Performed By: #### Irene ANDRES, SCAN1 #### [facility] [address] [place] [address] SMUDGE CELLS Present Normal Absent [facility] Comment on above: Performed By: #### Irene ANDRES, SCAN1 #### [address] [address] ABS BASOPHILS 0.0 thou/mm3 Normal 0.0-0.1 [facility] Comment on above: Performed By: #### C DMITRY, SCAN1 #### [address] [address] ABS EOSINOPHILS 0.0 thou/mm3 Normal 0.0-0.4 [facility] Comment on above: Performed By: #### Irene ANDRES, SCAN1 #### [address] [address] ABS IMMATURE GRANS (IG) 0.08 thou/mm3 High 0.00-0.07 [facility] Comment on above: Performed By: #### Irene ANDRES, SCAN1 #### [facility] [address] [place] [address] ABS LYMPHOCYTES 0.7 thou/mm3 Low 1.0-4.8 [facility] Comment on above: Performed By: #### Irene ANDRES, SCAN1 #### [facility] [address] [place] [address] ABS MONOCYTES 0.1 thou/mm3 Low 0.4-1.3 [facility] Comment on above: Performed By: #### C DMITRY, SCAN1 #### [facility] [address] [place] [address] ABS NEUTROPHILS 0.9 thou/mm3 Low 1.8-7.7 [facility] Comment on above: Performed By: #### C DMITRY, SCAN1 #### [facility] [address] [place] [address] Basophils/100 WBC (Bld) 0.5 % Normal [facility] Comment on above: Performed By: #### C DMITRY, SCAN1 #### [facility] [address] [place] [address] Eosinophils/100 WBC (Bld) 2.6 % Normal [facility] Comment on above: Performed By: #### Irene ANDRES, SCAN1 #### [facility] [address] [address] Erythrocyte distribution width (RBC) [Ratio] 12.1 % Normal 11.5-14.5 [facility] Comment on above: Performed By: #### C DMITRY, SCAN1 #### [facility] [address] [place] [address] Hematocrit (Bld) [Volume fraction] 33.8 % Low 42.0-52.0 [facility] Comment on above: Performed By: #### Irene ANDRES, SCAN1 #### [facility] [address] [place] [address] Hemoglobin (Bld) [Mass/Vol] 11.6 g/dL Low 14.0-18.0 [facility] Comment on above: Performed By: #### C DMITRY, SCAN1 #### [facility] [address] [place] [address] IMMATURE GRANS (IG) 4.2 % Normal [facility] Comment on above: Performed By: #### C MDITRY, SCAN1 #### [facility] [address] [place] [address] Lymphocytes/100 WBC (Bld) 37.0 % Normal [facility] Comment on above: Performed By: #### Irene ANDRES, SCAN1 #### [facility] [address] [place] [address] MCH (RBC) [Entitic mass] 30.9 pg Normal 26.0-33.0 [facility] Comment on above: Performed By: #### Irene ANDRES, SCAN1 #### [facility] [address] [place] [address] MCHC (RBC) [Mass/Vol] 34.3 g/dL Normal 32.2-35.5 [facility] Comment on above: Performed By: #### C DMITRY, SCAN1 #### [facility] [address] [place] [address] MCV (RBC) [Entitic vol] 90.1 fL Normal 80.0-94.0 [facility] Comment on above: Performed By: #### Irene ANDRES, SCAN1 #### [address] [address] Monocytes/100 WBC (Bld) 7.8 % Normal [facility] Comment on above: Performed By: #### Irene ANDRES, SCAN1 #### [address] [address] Neutrophils/100 WBC (Bld) 47.9 % Normal [facility] Comment on above: Performed By: #### Irene ANDRES, SCAN1 #### [address] [address] NRBC 0 /100 wbc Normal [facility] Comment on above: Performed By: #### Irene ANDRES, SCAN1 #### [address] [address] PLATELET 100 thou/mm3 Low 130-400 [facility] Comment on above: Performed By: #### Irene ANDRES, SCAN1 #### [facility] [address] [place] [address] Platelet mean volume (Bld) [Entitic vol] 11.4 fL Normal 9.4-12.4 [facility] Comment on above: Performed By: #### Irene ANDRES, SCAN1 #### [address] [address] RBC 3.75 mill/mm3 Low 4.70-6.10 [facility] Comment on above: Performed By: #### C BCWD, SCAN1 #### [facility] [address] [place] [address] RDW-SD 40.8 fL Normal 35.0-45.0 [facility] Comment on above: Performed By: #### C DMITRY, SCAN1 #### [facility] [address] [place] [address] WBC 1.9 thou/mm3 Low 4.8-10.8 [facility] Comment on above: Performed By: #### C DMITRY, SCAN1 #### [facility] [address] [place] [address] CBC with Auto Differentialon 03-02-2024 Basophils (Bld) [...] [#/Vol] 3.75 10*6/uL Low [facility] Smudge cells LM Ql (Bld) Present Absent [facility] Comment on above: Performed at [facility] [address] [place] [address] Variant lymphocytes LM Ql (Bld) OCC. % [facility] WBC (Bld) [#/Vol] 1.9 10*3/uL Low [facility] EKG Rhythm Stripon PACEART [facility] FRANCES VARNER VIRUS ANTIBODIE Son 03-02-2024 FRANCES VARNER VIRUS ANTIBODIES SEE BELOW Normal [facility] Comment on above: Result Comment: EBV Ab [...] helpful. 11.0 U/mL or greater....Detected Performed By: [facility] [address] [place] [address] Jar Filler: Sunny Roman MD, PhD CLIA Number: [id number] Performed By: #### M MMP, LPBM2, CRBM2 #### [facility] [address] [facility] [address] Frances varner virus (EBV) ant ibody panel Ion 03-02-2024 FRANCES-VARNER VIRUS ANTIBODIES SEE BELOW [facility] Comment on above: EBV Ab to Viral [...] helpful. 11.0 U/mL or greater....Detected Performed By: [facility] [address] [place] [address] Jar Filler: Sunny Roman MD, PhD CLIA Number: [id number] [facility] GFR, ESTIMATEDon 03-02-2024 GFR/1.73 sq M.predicted MDRD (S/P/Bld) [Vol rate/Area] mL/min/{1.73_m2} Normal >60 [facility] Comment on above: Pediatric calculator link https://www.kidney.org/professionals/kdoqi/gfr_calculatorped [...] that affects renal tubular secretion. Performed at [facility] [address] [place] [address] Result Comment: Danyel atric calculator link https://www.kidney.org/professionals/kdoqi/gfr_calculatorped [...] Performed By: #### C RP, WSR #### [place] [address] No Panel Informationon 03-02 [facility] SCAN OF BLOOD SMEARon 2023 SCAN OF BLOOD SMEAR see below Normal [facility] Comment on above: Criteria Exceeded; S can of Differential Slide [place]formed [place] [address] Result Comment: Crit eria Exceeded; Scan of Differential Slide Performed Performed By: #### C BCWD, SCAN1 #### [place] [address] BLOOD SMEAR REVIEWon PATHOLOGIST REVIEWED Estefani FUNES Normal [facility] Comment on above: Result Comment: Panc ytopenia with normocytic anemia. No circulating blasts. No platelet clumps. Clinical correlation is recommended. Performed By: #### M MMP, LPBM2, CRBM2 #### [facility] [address] [facility] [place] [address] SMEAR REVIEWED BY PATHOLOGIST see below Normal [facility] Comment on above: Result Comment: See Below Performed By: #### M MMP, LPBM2, CRBM2 #### [facility] [address] [place] [address] CBC WITH DIFFERENTIALon PATHOLOGIST REVIEWED PCF Normal [facility] Comment on above: Performed By: #### C VFLU #### [place] [address] ATYPICAL LYMPH OCC. Normal [facility] Comment on above: Performed By: #### C VFLU #### [place] [address] ABS BASOPHILS 0.0 thou/mm3 Normal 0.0-0.1 [facility] Comment on above: Performed By: #### C VFLU #### [facility] [address] [place] [address] ABS EOSINOPHILS 0.0 thou/mm3 Normal 0.0-0.4 [facility] Comment on above: Performed By: #### C VFLU #### [facility] [address] [place] [address] ABS IMMATURE GRANS (IG) 0.09 thou/mm3 High 0.00-0.07 [facility] Comment on above: Performed By: #### C VFLU #### [facility] [address] [place] [address] ABS LYMPHOCYTES 0.5 thou/mm3 Low 1.0-4.8 [facility] Comment on above: Performed By: #### C VFLU #### [address] [address] ABS MONOCYTES 0.1 thou/mm3 Low 0.4-1.3 [facility] Comment on above: Performed By: #### C VFLU #### [address] [address] ABS NEUTROPHILS 1.1 thou/mm3 Low 1.8-7.7 [facility] Comment on above: Performed By: #### C VFLU #### [address] [address] Basophils/100 WBC (Bld) 1.1 % Normal [facility] Comment on above: Performed By: #### C VFLU #### [facility] [address] [place] [address] Eosinophils/100 WBC (Bld) 1.7 % Normal [facility] Comment on above: Performed By: #### C VFLU #### [facility] [address] [place] [address] Erythrocyte distribution width (RBC) [Ratio] 12.3 % Normal 11.5-14.5 [facility] Comment on above: Performed By: #### C VFLU #### [facility] [address] [place] [address] Hematocrit (Bld) [Volume fraction] 38.2 % Low 42.0-52.0 [facility] Comment on above: Performed By: #### C VFLU #### [address] [address] Hemoglobin (Bld) [Mass/Vol] 12.9 g/dL Low 14.0-18.0 [facility] Comment on above: Performed By: #### C VFLU #### [facility] [address] [place] [address] IMMATURE GRANS (IG) 5.0 % Normal [facility] Comment on above: Performed By: #### C VFLU #### [address] [address] Lymphocytes/100 WBC (Bld) 26.3 % Normal [facility] Comment on above: Performed By: #### C VFLU #### [address] [address] MCH (RBC) [Entitic mass] 30.2 pg Normal 26.0-33.0 [facility] Comment on above: Performed By: #### C VFLU #### [address] [address] MCHC (RBC) [Mass/Vol] 33.8 g/dL Normal 32.2-35.5 [facility] Comment on above: Performed By: #### C VFLU #### [address] [address] MCV (RBC) [Entitic vol] 89.5 fL Normal 80.0-94.0 [facility] Comment on above: Performed By: #### C VFLU #### [address] [address] Monocytes/100 WBC (Bld) 5.6 % Normal [facility] Comment on above: Performed By: #### C VFLU #### [address] [address] Neutrophils/100 WBC (Bld) 60.3 % Normal [facility] Comment on above: Performed By: #### C VFLU #### [address] [address] NRBC 0 /100 wbc Normal [facility] Comment on above: Performed By: #### C VFLU #### [facility] [address] [place] [address] PLATELET 86 thou/mm3 Low 130-400 [facility] Comment on above: Performed By: #### C VFLU #### [facility] [address] [place] [address] Platelet mean volume (Bld) [Entitic vol] 11.2 fL Normal 9.4-12.4 [facility] Comment on above: Performed By: #### C VFLU #### [facility] [address] [place] [address] RBC 4.27 mill/mm3 Low 4.70-6.10 [facility] Comment on above: Performed By: #### C VFLU #### [facility] [address] [place] [address] RDW-SD 40.0 fL Normal 35.0-45.0 [facility] Comment on above: Performed By: #### C VFLU #### [facility] [address] [place] [address] WBC 1.8 thou/mm3 Low 4.8-10.8 [facility] Comment on above: Performed By: #### C VFLU #### [facility] [address] [place] [address] CBC with Auto Differentialon 03-01-2024 Basophils (Bld) [...] Immature granulocytes/100 WBC (Bld) 5.0 % [facility] Interpretation and review of laboratory [...] Health Monocytes/100 WBC (Bld) 5.6 % [facility] Neutrophils Absolute 1.1 Low [facility] Neutrophils/100 WBC (Bld) 60.3 % [facility] Nucleated RBC/100 WBC (Bld) [Ratio] 0 % /100 wbc [facility] Comment on above: Performed at [facility] [address] [place] [address] Pathologist Review PCF [facility] Platelet mean volume (Bld) [Entitic vol] 11.2 fL 9.4 - 12.4 fL [facility] Platelets (Bld) [#/Vol] 86 10*3/uL Low [facility] RBC (Bld) [#/Vol] 4.27 10*6/uL Low [facility] Variant lymphocytes LM Ql (Bld) OCC. % [facility] WBC (Bld) [#/Vol] 1.8 10*3/uL Low [facility] BIOPSY BONE MARROWon CT BIOPSY BONE MARROW CT-GUIDED BONE MARROW BIOPSY: CLINICAL INFORMATION: 33-year-old male with pancytopenia PERFORMED BY: Dr. Kostas Castanon M.D. BIOPSY SITE: Right posterior iliac spine APPROACH: Posterior NEEDLE: 8 -gauge Jamshidi needle. SPECIMENS OBTAINED:. 1 8 -gauge core specimens., 10 mL blood aspiration specimen. SEDATION: Versed 2 mg; fentanyl 100 mcg, IV; the patient was sedated during this procedure, and monitored with EKG and pulse ox monitoring devices by a registered nurse. Hfhh-ek-jfst time with patient 10 minutes. PROCEDURE: Signed [...] recognition technology. Electronically signed by Dr Kostas Castanon Interpreted by: Kostas Castanon MD Signed by: Kostas Castanon MD 03/01/24 Final result Normal [facility] CT Guidance for biopsy of Cosmo ne marrowon 03-01-2024 Status post successf ul CT guided bone marrow biopsy. This report has been created using voice recognition software. It may contain minor errors which are inherent in voice recognition technology. Electronically signed by Dr Kostas Castanon [facility]-GUIDED BONE MARRO W BIOPSY: CLINICAL INFORMATION: 33-year-old male with pancytopenia PERFORMED BY: Dr. Kostas Castanon M.D. BIOPSY SITE: Right posterior iliac spine APPROACH: Posterior NEEDLE: 8 -gauge Jamshidi needle. SPECIMENS OBTAINED:. 1 8 -gauge core specimens., 10 mL blood aspiration specimen. SEDATION: Versed 2 mg; fentanyl 100 mcg, IV; the patient was sedated during this procedure, and monitored with EKG and pulse ox monitoring devices by a registered nurse. Hnhr-xc-qslh time with patient 10 minutes. PROCEDURE: Signed [...] dose to as low as reasonably achievable. [facility] Kostas Morelos MD - 03/01/2024 CT-GUIDED BONE MARROW BIOPSY: CLINICAL INFORMATION: 33-year-old male with pancytopenia PERFORMED BY: Dr. Kostas Castanon M.D. BIOPSY SITE: Right posterior iliac spine APPROACH: Posterior NEEDLE: 8 -gauge Jamshidi needle. SPECIMENS OBTAINED:. 1 8 -gauge core specimens., 10 mL blood aspiration specimen. SEDATION: Versed 2 mg; fentanyl 100 mcg, IV; the patient was sedated during this procedure, and monitored with EKG and pulse ox monitoring devices by a registered nurse. Faau-yh-qyzg time with patient 10 minutes. PROCEDURE: Signed [...] recognition technology. Electronically signed by Dr Kostas Castanon [facility] [employer] Radiology Study observation (narrative) [employer]™ Medical CT Guidance for biopsy of Cosmo ne marrowOrdered By: Kostas Castanon on 03-01-2024 [employer] Phone: EKG 12 LeadOrdered By: Julito Morris on 03-01-2024 Atrial Rate 87 BPM [employer] Phone: P [place] 73 degrees [employer] Phone: P-R Interval 140 ms [employer] Phone: Q-T Interval 378 ms [employer] Phone: QRS Duration 104 ms [employer] Phone: QTc Calculation (Bazett) 454 ms [employer] Phone: R [place] 72 degrees [employer] Phone: T [place] 42 degrees [employer] Phone: Ventricular Rate 87 BPM [employer] Work Phone: [employer] Phone: EKG 12 Leadon 03-01-2024 Normal sinus [...] NAYELI MORRIS ([id number]) on 03/01/2024 1:00:05 PM [facility] EKG Rhythm Stripon 4 75 PACEART [facility] 81 PACEART [facility] hr [facility] No Panel Informationon 03-01 [facility] Path Review, Smearon 024 REVIEWED BY Tammi FUNES. [facility] Comment on above: Pancytopenia with no rmocytic anemia. No circulating blasts. No platelet clumps. Clinical correlation is recommended. Performed at [facility] [address] [place] [address] Smear Review see below [facility] Comment on above: See Below SCAN OF BLOOD SMEARon 2023 SCAN OF BLOOD SMEAR see below Normal [facility] Comment on above: Criteria Exceeded; S can of Differential Slide Performed [place] [address] Result Comment: Crit eria Exceeded; Scan of Differential Slide Performed Performed By: #### C VFLU #### [place] [address] SURGICALon 03-01-2024 SURGICAL [facility] ETHAN LAGUNAS [id number] Assoc. Page [address] of [address] [place] [address] PROC: 03/01/2024 [place] RECV: 03/01/2024 [address] [facility] RPTD: 03/20/2024 [place] [address] LOC: 4A ACCT: [id number] SEX: M : 1990 AGE: 33 Y PATHOLOGY REPORT ATTN: RUTH WYMAN REQ: JENNY ALVAREZ Copies To: KOSTAS WYMAN Clinical Information: PANCYTOPENIA ADDENDUM 03/20/2024 INAL DIAGNOSIS: Bone marrow, aspirate, clot and core biopsy: CBC-pancytopenia with neutropenia. Normocellular marrow with trilineage hematopoiesis and nonnecrotizing granulomatous inflammation. See microscopic. Iron stain-decreased iron stores. Flow cytometry-no abnormal immunophenotype. Addendum: Cytogenetics: 46, XY Myeloid mutation panel by NGS: No tier 1 variants identified. See separate reference report regarding tier 2 variants of unknown clinical significance in hematologic malignancies. These ancillary results do not change the diagnosis but help to exclude a possible molecular abnormality. Clinical correlation with underlying etiologies is needed. Specimen: A) BONE MARROW ASPIRATE B) BONE MARROW BIOPSY Gross Examination: A - The specimen container is labeled Ethan Donald, bone marrow clot. The specimen is received in formalin and consists of an aggregate of red blood clot measuring 2.8 x 2.0 x 0.7 cm in aggregate. Rn Gastroenterology blood clot is submitted in one cassette [...] currently pending. Please see separate reference reports. [id number] x 2 LIZY BRISCOE M.D., F.C.A.P. [facility]/ [facility] Printed on: 03/20/[address] [place] [id number] Original print date: 03/20/2024 Normal [facility] Scan of Blood Smearon 2023 [facility] ANION GAPon 02-29-2024 Anion gap [Moles/Vol] 13.0 mmol/L Normal 8.0-16.0 [facility] Comment on above: Result Comment: ANIO N GAP = Sodium -(Chloride + CO2) Performed By: #### C VFLU #### [address] [address] Anion Gapon 02-29-2024 Anion gap [Moles/Vol] 13.0 mmol/L 8.0 - 16.0 meq/L [facility] Comment on above: ANION GAP = Sodium - (Chloride + CO2) Performed at [facility] [address] [place] [address] BASIC METABOL PANELon 2023 Calcium [Mass/Vol] 8.3 mg/dL Low 8.5-10.5 [facility] Comment on above: Performed By: #### C VFLU #### [facility] [address] [place] [address] Chloride [Moles/Vol] 102 mmol/L Normal 98-111 [facility] Comment on above: Performed By: #### C VFLU #### [facility] [address] [place] [address] CO2 [Moles/Vol] 24 mmol/L Normal 23-33 [facility] Comment on above: Performed By: #### C VFLU #### [facility] [address] [place] [address] Creatinine [Mass/Vol] 1.1 mg/dL Normal 0.4-1.2 [facility] Comment on above: Performed By: #### C VFLU #### [facility] [address] [place] [address] Glucose [Mass/Vol] 96 mg/dL Normal 70-108 [facility] Comment on above: Performed By: #### C VFLU #### [facility] [address] [place] [address] Potassium [Moles/Vol] 3.7 mmol/L Normal 3.5-5.2 [facility] Comment on above: Performed By: #### C VFLU #### [facility] [address] [place] [address] Sodium [Moles/Vol] 139 mmol/L Normal 135-145 [facility] Comment on above: Performed By: #### C VFLU #### [facility] [address] [place] [address] Urea nitrogen [Mass/Vol] 13 mg/dL Normal 7-22 [facility] Comment on above: Performed By: #### C VFLU #### [address] [address] Basic metabolic 2000 panelon 02-29-2024 Calcium [Mass/Vol] 8.3 mg/dL Low 8.5 - 10. 5 mg/dL [facility] Comment on above: Performed at [facility] [address] [place] [address] Chloride [Moles/Vol] 102 mmol/L 98 - 111 meq/L [facility] CO2 [Moles/Vol] 24 mmol/L 23 - 33 meq/L Bon [facility] [employer] [facility] Creatinine [Mass/Vol] 1.1 mg/dL 0.4 - 1.2 mg/dL [facility] Glucose [Mass/Vol] 96 mg/dL 70 - 108 mg/dL [facility] Interpretation and review of laboratory results Abnormal [facility] Potassium [Moles/Vol] 3.7 mmol/L 3.5 - 5.2 meq/L [facility] Sodium [Moles/Vol] 139 mmol/L 135 - 145 meq/L [facility] Urea nitrogen [Mass/Vol] 13 mg/dL 7 - 22 mg/dL [facility] C-REACTIVE PROTEINon 024 C-REACTIVE PROTEIN 4.49 mg/dl High 0.00-1.00 [facility] Comment on above: Performed By: #### C RP, WSR #### [facility] [place] [address] C-Reactive Proteinon 024 CRP [Mass/Vol] 4.49 mg/dl High 0.00 - 1.00 mg/dl [facility] Comment on above: Performed at [facility] [address] [place] [address] CALCIUM (IONIZED) * WBon CALCIUM (IONIZED) * WB 1.11 mmol/L Low 1.12-1.32 [facility] Comment on above: Performed By: #### C VFLU #### [facility] [place] [address] CBC WITH DIFFERENTIALon 01-31 PLATELET ESTIMATE DECREASED Normal Adequate [facility] Comment on above: Performed By: #### C VFLU #### [place] [address] SMUDGE CELLS Present Normal Absent [facility] Comment on above: Performed By: #### C VFLU #### [facility] [address] [address] ABS BASOPHILS 0.0 thou/mm3 Normal 0.0-0.1 [facility] Comment on above: Performed By: #### C VFLU #### [facility] [address] [place] [address] ABS EOSINOPHILS 0.0 thou/mm3 Normal 0.0-0.4 [facility] Comment on above: Performed By: #### C VFLU #### [facility] [place] [address] ABS IMMATURE GRANS (IG) 0.05 thou/mm3 Normal 0.00-0.07 [facility] Comment on above: Performed By: #### C VFLU #### [address] [address] ABS LYMPHOCYTES 0.4 thou/mm3 Low 1.0-4.8 [facility] Comment on above: Performed By: #### C VFLU #### [address] [address] ABS MONOCYTES 0.1 thou/mm3 Low 0.4-1.3 [facility] Comment on above: Performed By: #### C VFLU #### [address] [address] ABS NEUTROPHILS 0.9 thou/mm3 Low 1.8-7.7 [facility] Comment on above: Performed By: #### C VFLU #### [address] [address] Basophils/100 WBC (Bld) 1.4 % Normal [facility] Comment on above: Performed By: #### C VFLU #### [address] [address] Eosinophils/100 WBC (Bld) 0.7 % Normal [facility] Comment on above: Performed By: #### C VFLU #### [address] [address] Erythrocyte distribution width (RBC) [Ratio] 12.0 % Normal 11.5-14.5 [facility] Comment on above: Performed By: #### C VFLU #### [address] [address] Hematocrit (Bld) [Volume fraction] 36.0 % Low 42.0-52.0 [facility] Comment on above: Performed By: #### C VFLU #### [address] [address] Hemoglobin (Bld) [Mass/Vol] 12.2 g/dL Low 14.0-18.0 [facility] Comment on above: Performed By: #### C VFLU #### [address] [address] IMMATURE GRANS (IG) 3.4 % Normal [facility] Comment on above: Performed By: #### C VFLU #### [address] [address] Lymphocytes/100 WBC (Bld) 25.0 % Normal [facility] Comment on above: Performed By: #### C VFLU #### [address] [address] MCH (RBC) [Entitic mass] 30.7 pg Normal 26.0-33.0 [facility] Comment on above: Performed By: #### C VFLU #### [address] [address] MCHC (RBC) [Mass/Vol] 33.9 g/dL Normal 32.2-35.5 [facility] Comment on above: Performed By: #### C VFLU #### [address] [address] MCV (RBC) [Entitic vol] 90.5 fL Normal 80.0-94.0 [facility] Comment on above: Performed By: #### C VFLU #### [address] [address] Monocytes/100 WBC (Bld) 7.4 % Normal [facility] Comment on above: Performed By: #### C VFLU #### [address] [address] Neutrophils/100 WBC (Bld) 62.1 % Normal [facility] Comment on above: Performed By: #### C VFLU #### [address] [address] NRBC 0 /100 wbc Normal [facility] Comment on above: Performed By: #### C VFLU #### [address] [address] PLATELET 89 thou/mm3 Low 130-400 [facility] Comment on above: Performed By: #### C VFLU #### [address] [address] Platelet mean volume (Bld) [Entitic vol] 10.7 fL Normal 9.4-12.4 [facility] Comment on above: Performed By: #### C VFLU #### [facility] [address] [place] [address] RBC 3.98 mill/mm3 Low 4.70-6.10 [facility] Comment on above: Performed By: #### C VFLU #### [facility] [address] [place] [address] RDW-SD 40.1 fL Normal 35.0-45.0 [facility] Comment on above: Performed By: #### C VFLU #### [facility] [address] [place] [address] WBC 1.5 thou/mm3 Low 4.8-10.8 [facility] Comment on above: Performed By: #### C VFLU #### [facility] [address] [place] [address] CBC with Auto Differentialon 02-29-2024 Basophils (Bld) [...] 30.7 pg 26.0 - 33.0 pg [facility] MCHC (RBC) [Mass/Vol] 33.9 g/dL [...] 10.7 fL 9.4 - 12.4 fL [facility] Platelets (Bld) [#/Vol] 89 10*3/uL Low [facility] Platelets LM Ql (Bld) DECREASED Adequate [facility] RBC (Bld) [#/Vol] 3.98 10*6/uL Low [facility] Smudge cells LM Ql (Bld) Present Absent [facility] Comment on above: Performed at [facility] [address] [place] [address] WBC (Bld) [#/Vol] 1.5 10*3/uL Low [facility] [facility] CRP [Mass/Vol]on 02-29-2024 Interpretation and review of laboratory results Abnormal [facility] Calcium, Ionizedon Calcium.ionized ISE (Bld) [Moles/Vol] 1.11 mmol/L Low 1.12 - 1.32 mmol/L [facility] Comment on above: Performed at [facility] ion Medical Lab [address] [place] [address] EKG 12-LEADon 02-29-2024 EKG 12-LEAD 87 87 140 104 [phone] 42 Normal sinus rhythm Nonspecific T wave abnormality Abnormal ECG When compared with ECG of 28-FEB-2024 20:02, No significant change was found Confirmed by NAYELI MORRIS ([id number]) on 03/01/2024 1:00:05 PM [email or web address] RetrieveTestByDateTime ?[id number]&D ate=29-02-2024&Time=20 %3a57%3a59%3a00&TestTy pe=ECG&Site=3&OutputTy pe=PDF&Ext=PDF Normal [facility] ESR Westergren method (Bld) [Velocity]on 02-29-2024 ESR (Bld) [Velocity] 10 mm/h [facility] Comment on above: Performed at [facility] Medical Lab [address] [place] [address] [facility] Electrophoresis Protein, Ser umon 02-29-2024 Protein Electrophoresis, Serum SEE BELOW [facility] Comment on above: Total Protein, Serum 6.5 [...] See Note Authorized individuals can access the [employer] Enhanced Report using the following link: [email or web address] Performed By: [facility] [address] [place] [id number] Jar Filler: Sunny Roman MD, PhD CLIA Number: [id number] [facility] FERRITINon 02-29-2024 Ferritin [Mass/Vol] 1435 ng/mL High 22-322 [facility] Comment on above: Performed By: #### C RP, WSR #### [facility] [facility] [employer] [address] [place] [address] Ferritinon 02-29-2024 Ferritin IA [Mass/Vol] 1435 ng/mL High 22 - 322 ng/mL [facility] Comment on above: Performed at [facility] [employer] [facility] [address] [place] [address] GFR, ESTIMATEDon 02-29-2024 GFR/1.73 sq M.predicted MDRD (S/P/Bld) [Vol rate/Area] mL/min/{1.73_m2} Normal >60 [facility] Comment on above: Pediatric calculator link https://www.kidney.org/professionals/kdoqi/gfr_calculatorped [...] that affects renal tubular secretion. Performed at [facility] [place] [address] Result Comment: Pedi atric calculator link https://www.kidney.org/professionals/kdoqi/gfr_calculatorped [...] secretion. Performed By: #### C VFLU #### [facility] [address] [place] [address] HEPATIC FUNCTION PANELon Albumin [Mass/Vol] 3.3 g/dL Low 3.5-5.1 [facility] Comment on above: Performed By: #### C RP WSR #### [facility] [address] [place] [address] ALP [Catalytic activity/Vol] 89 U/L Normal 38-126 [facility] Comment on above: Performed By: #### C RP, WSR #### [facility] [address] [place] [address] ALT [Catalytic activity/Vol] 49 U/L Normal 11-66 [facility] Comment on above: Performed By: #### C RP, WSR #### [facility] [address] [place] [address] AST [Catalytic activity/Vol] 61 U/L High 5-40 [facility] Comment on above: Performed By: #### C RP, WSR #### [facility] [address] [place] [address] Bilirubin [Mass/Vol] 0.7 mg/dL Normal 0.3-1.2 [facility] Comment on above: Performed By: #### C RP, WSR #### [facility] [employer] [address] [place] [address] Bilirubin.direct [Mass/Vol] 0.3 mg/dL Normal 0.1-13.8 [facility] Comment on above: Performed By: #### C RP, WSR #### [facility] [employer] [address] [place] [address] Protein [Mass/Vol] 5.8 g/dL Low 6.1-8.0 [facility] Comment on above: Performed By: #### C RP, WSR #### [facility] [employer] [address] [address] HIV 1+2 Ab+HIV1 p24 Ag IA Ql on 02-29-2024 [facility] HIV AG/ABon 02-29-2024 HIV AG/AB SEE BELOW Normal [facility] Comment on above: Result Comment: HIV Ag/Ab NONREACTIVE NR No laboratory evidence of HIV infection. If acute HIV infection is suspected, consider testing for HIV-1 RNA. Performed at [email or web address] [address] . Performed By: #### C RP, WSR #### [facility] [employer] [address] [address] HIV Screenon 02-29-2024 HIV 1+2 Ab+HIV1 p24 Ag IA Ql SEE BELOW [facility] Comment on above: HIV Ag/Ab NONREACTIV E NR No laboratory evidence of HIV infection. If acute HIV infection is suspected, consider testing for HIV-1 RNA. Performed at [email or web address], [address] [place] [address] . Hepatic function 2000 panelo n 02-29-2024 Albumin BCG dye [Mass/Vol] 3.3 g/dL Low 3.5 - 5.1 g/dL [facility] ALP [Catalytic activity/Vol] 89 U/L 38 - 126 U/L [facility] ALT No additional P-5'-P [Catalytic activity/Vol] 49 U/L 11 - 66 U/L [facility] AST [Catalytic activity/Vol] 61 U/L High 5 - 40 U/L [facility] Bilirubin [Mass/Vol] 0.7 mg/dL 0.3 - 1.2 mg/dL [facility] Bilirubin.conjugate d [Mass/Vol] 0.3 mg/dL 0.1 - 13.8 mg/dL [facility] Protein [Mass/Vol] 5.8 g/dL Low 6.1 - 8.0 g/dL [facility] Comment on above: Performed at [facility] [employer] [facility] Medical Lab [address] [place] [address] IRONon 02-29-2024 Iron [Mass/Vol] 31 ug/dL Low 65-195 [facility] Comment on above: Performed By: #### ADRIAN Bonilla RPR #### [facility] [facility] [address] [place] [address] IRON BINDING CAPACITYon 10- IRON BINDING CAPACITY 199 ug/dL Normal 171-450 [facility] Comment on above: Performed By: #### Irene GUPTA, WSR #### [facility] [address] [place] [address] IRON SATURATIONon 02-29-2024 Iron saturation [Mass fraction] 16 % Low 20 - 50 % [facility] Comment on above: Performed at [facility] [employer] ion Medical Lab [address] [place] [address] IRON SATURATION 16 % Low 20-50 [facility] Comment on above: Performed By: #### Irene GUPTA, WSR #### [facility] [address] [place] [address] Ironon 02-29-2024 Iron [Mass/Vol] 31 ug/dL Low 65 - 195 ug/dL [facility] Comment on above: Performed at [facility] ion Medical Lab [address] [place] [address] Iron binding capacityon 01-31 Iron binding capacity [Mass/Vol] 199 ug/dL 171 - 450 ug/dL [facility] Comment on above: Performed at [facility] ion Medical Lab [address] [place] [address] MR Brain WO and W contrast I Von 02-29-2024 No acute intracrania l findings. This document has been electronically signed by: Jadon Bhatti MD on 02/29/2024 02:17 AM [facility] MRI Brain W/WO Contrast COMPARISON: None FINDINGS: No evidence of acute infarction. No acute intracranial hemorrhage. No mass-effect or midline shift. No abnormal enhancement. No hydrocephalus. Clear paranasal sinuses. Clear mastoid air cells. Unremarkable orbits. [facility] Jadon Bhatti MD - 02/29/2024 MRI Brain W/WO Contrast COMPARISON: None FINDINGS: No evidence of acute infarction. No acute intracranial hemorrhage. No mass-effect or midline shift. No abnormal enhancement. No hydrocephalus. Clear paranasal sinuses. Clear mastoid air cells. Unremarkable orbits. IMPRESSION: No acute intracranial findings. This document has been electronically signed by: Jadon Bhatti MD on 02/29/2024 02:17 AM [facility] MR Brain WO and W contrast I VOrdered By: Jadon Bhatti on 02-29-2024 [facility] Work Phone: MRI BRAIN W WO CONTRASTon [...] Jadon Bhatti MD 02/29/24 Final result Normal [facility] No Panel Informationon 02-28 Interpretation and review of laboratory results Abnormal [facility] Interpretation and review of laboratory results Abnormal [facility] PROTEIN ELECTRO., SERUMon PROTEIN ELECTRO., SERUM SEE BELOW Normal [facility] Comment on above: Result Comment: Tota l [...] See Note Authorized individuals can access the [employer] Enhanced Report using the following link: [email or web address] Performed By: [facility] [address] [place] [address] Jar Filler: Sunny Roman MD, PhD CLIA Number: [id number] Performed By: #### C CANDY, WSR #### [facility] [address] [place] [address] SCAN OF BLOOD SMEARon 2023 SCAN OF BLOOD SMEAR see below Normal [facility] Comment on above: Criteria Exceeded; S can of Differential Slide Performed Performed at [facility] [address] [place] [address] Result Comment: Crit eria Exceeded; Scan of Differential Slide Performed Performed By: #### C RP, WSR #### [facility] [address] [place] [address] SED RATEon 02-29-2024 SED RATE 10 mm/hr Normal 0-10 [facility] Comment on above: Performed By: #### C RP, WSR #### [facility] [address] [place] [address] ANION GAPon 02-28-2024 Anion gap [Moles/Vol] 14.0 mmol/L Normal 8.0-16.0 [facility] Comment on above: Result Comment: ANIO N GAP = Sodium -(Chloride + CO2) Performed By: #### M JORGE HAILEBM2, CRBM2 #### [facility] [address] [facility] [place] [address] APTTon 02-28-2024 aPTT Coag (Bld) [Time] 24.6 s Normal 22.0-38.0 [facility] Comment on above: Result Comment: Ther apeutic Heparin Reference Range= 60-95 seconds (corresponds to 0.3 to 0.7 u/mL Anti-Xa factor activity) Performed By: #### M MIC, JORGEBM2, CRBM2 #### [facility] [address] [facility] [place] [address] Anion Gapon 02-28-2024 Anion gap [Moles/Vol] 14.0 mmol/L 8.0 - 16.0 meq/L [facility] Comment on above: ANION GAP = Sodium - (Chloride + CO2) Performed at [facility] Medical Lab [address] [place] [address] CBC WITH DIFFERENTIALon 01-31 ABS BASOPHILS 0.0 thou/mm3 Normal 0.0-0.1 [facility] Comment on above: Performed By: #### M MIC, LPBM2, CRBM2 #### [facility] [address] [place] [address] ABS EOSINOPHILS 0.0 thou/mm3 Normal 0.0-0.4 [facility] Comment on above: Performed By: #### M MIC, LPBM2, CRBM2 #### [facility] [address] [place] [address] ABS IMMATURE GRANS (IG) 0.03 thou/mm3 Normal 0.00-0.07 [facility] Comment on above: Performed By: #### M MIC, LPBM2, CRBM2 #### [facility] [address] [place] [address] ABS LYMPHOCYTES 0.4 thou/mm3 Low 1.0-4.8 [facility] Comment on above: Performed By: #### M MIC, LPBM2, CRBM2 #### [facility] [address] [facility] [place] [address] ABS MONOCYTES 0.2 thou/mm3 Low 0.4-1.3 [facility] Comment on above: Performed By: #### M MMP, LPBM2, CRBM2 #### [facility] [address] [facility] [place] [address] ABS NEUTROPHILS 1.6 thou/mm3 Low 1.8-7.7 [facility] Comment on above: Performed By: #### M MMP, LPBM2, CRBM2 #### [facility] [address] [facility] [address] Basophils/100 WBC (Bld) 1.7 % Normal [facility] Comment on above: Performed By: #### M MMP, LPBM2, CRBM2 #### [facility] [address] [facility] [address] Eosinophils/100 WBC (Bld) 0.9 % Normal [facility] Comment on above: Performed By: #### M MMP, LPBM2, CRBM2 #### [facility] [address] [facility] [address] Erythrocyte distribution width (RBC) [Ratio] 12.2 % Normal 11.5-14.5 [facility] Comment on above: Performed By: #### M MMP, LPBM2, CRBM2 #### [facility] [address] [facility] [address] Hematocrit (Bld) [Volume fraction] 39.2 % Low 42.0-52.0 [facility] Comment on above: Performed By: #### M MMP, LPBM2, CRBM2 #### [facility] [address] [facility] [address] Hemoglobin (Bld) [Mass/Vol] 13.1 g/dL Low 14.0-18.0 [facility] Comment on above: Performed By: #### M MMP, LPBM2, CRBM2 #### [facility] [address] [facility] [address] IMMATURE GRANS (IG) 1.3 % Normal [facility] Comment on above: Performed By: #### M MMP, LPBM2, CRBM2 #### [facility] [address] [facility] [address] Lymphocytes/100 WBC (Bld) 17.7 % Normal [facility] Comment on above: Performed By: #### M MMP, LPBM2, CRBM2 #### [facility] [address] [facility] [place] [address] MCH (RBC) [Entitic mass] 30.2 pg Normal 26.0-33.0 [facility] Comment on above: Performed By: #### M MMP, LPBM2, CRBM2 #### [facility] [address] [facility] [address] MCHC (RBC) [Mass/Vol] 33.4 g/dL Normal 32.2-35.5 [facility] Comment on above: Performed By: #### M MMP, LPBM2, CRBM2 #### [facility] [address] [facility] [address] MCV (RBC) [Entitic vol] 90.3 fL Normal 80.0-94.0 [facility] Comment on above: Performed By: #### M MMP, LPBM2, CRBM2 #### [facility] [address] [facility] [address] Monocytes/100 WBC (Bld) 8.2 % Normal [facility] Comment on above: Performed By: #### M MMP, LPBM2, CRBM2 #### [facility] [address] [facility] [address] Neutrophils/100 WBC (Bld) 70.2 % Normal [facility] Comment on above: Performed By: #### M MMP, LPBM2, CRBM2 #### [facility] [address] [facility] [address] NRBC 0 /100 wbc Normal [facility] Comment on above: Performed By: #### M MMP, LPBM2, CRBM2 #### [facility] [address] [facility] [address] PLATELET 107 thou/mm3 Low 130-400 [facility] Comment on above: Performed By: #### M MMP, LPBM2, CRBM2 #### [facility] [address] [facility] [address] Platelet mean volume (Bld) [Entitic vol] 10.7 fL Normal 9.4-12.4 [facility] Comment on above: Performed By: #### M MMP, LPBM2, CRBM2 #### [facility] [address] [place] [address] RBC 4.34 mill/mm3 Low 4.70-6.10 [facility] Comment on above: Performed By: #### M MMP, LPBM2, CRBM2 #### [facility] [address] [facility] [address] RDW-SD 40.4 fL Normal 35.0-45.0 [facility] Comment on above: Performed By: #### M MMP, LPBM2, CRBM2 #### [facility] [address] [facility] [address] WBC 2.3 thou/mm3 Low 4.8-10.8 [facility] Comment on above: Performed By: #### M MMP, LPBM2, CRBM2 #### [facility] [address] [facility] [address] CBC with Auto Differentialon 02-28-2024 Basophils (Bld) [...] [facility] Comment on above: Performed at [facility] Medical Lab [address] [place] [address] Platelets (Bld) [#/Vol] 107 10*3/uL Low [facility] RBC (Bld) [#/Vol] 4.34 10*6/uL Low [facility] WBC (Bld) [#/Vol] 2.3 10*3/uL Low [facility] COMP. METABOLIC PANELon 01-31 Albumin [Mass/Vol] 3.6 g/dL Normal 3.5-5.1 [facility] Comment on above: Performed By: #### M MMP, LPBM2, CRBM2 #### [facility] [address] [place] [address] ALP [Catalytic activity/Vol] 85 U/L Normal 38-126 [facility] Comment on above: Performed By: #### M MMP, LPBM2, CRBM2 #### [facility] [address] [place] [address] ALT [Catalytic activity/Vol] 39 U/L Normal 11-66 [facility] Comment on above: Performed By: #### M MMP, LPBM2, CRBM2 #### [facility] [address] [place] [address] AST [Catalytic activity/Vol] 45 U/L High 5-40 [facility] Comment on above: Performed By: #### M MMP, LPBM2, CRBM2 #### [facility] [address] [place] [address] Bilirubin [Mass/Vol] 0.8 mg/dL Normal 0.3-1.2 [facility] Comment on above: Performed By: #### M MMP, LPBM2, CRBM2 #### [facility] [address] [place] [address] Calcium [Mass/Vol] 8.5 mg/dL Normal 8.5-10.5 [facility] Comment on above: Performed By: #### M MMP, LPBM2, CRBM2 #### [facility] [address] [place] [address] Chloride [Moles/Vol] 101 mmol/L Normal 98-111 [facility] Comment on above: Performed By: #### M MMP, LPBM2, CRBM2 #### [facility] [address] [place] [address] CO2 [Moles/Vol] 25 mmol/L Normal 23-33 [facility] Comment on above: Performed By: #### M MMP, LPBM2, CRBM2 #### [facility] [address] [place] [address] Creatinine [Mass/Vol] 1.2 mg/dL Normal 0.4-1.2 [facility] Comment on above: Performed By: #### M MMP, LPBM2, CRBM2 #### [facility] [address] [place] [address] Glucose [Mass/Vol] 94 mg/dL Normal 70-108 [facility] Comment on above: Performed By: #### M MMP, LPBM2, CRBM2 #### [facility] [address] [facility] [address] POTASSIUM WITH REFLEX MG 4.1 meq/L Normal 3.5-5.2 [facility] Comment on above: Performed By: #### M MMP, LPBM2, CRBM2 #### [facility] [address] [facility] [address] Protein [Mass/Vol] 6.2 g/dL Normal 6.1-8.0 [facility] Comment on above: Performed By: #### M MMP, LPBM2, CRBM2 #### [facility] [address] [facility] [address] Sodium [Moles/Vol] 140 mmol/L Normal 135-145 [facility] Comment on above: Performed By: #### M MMP, LPBM2, CRBM2 #### [facility] [address] [facility] [place] [address] Urea nitrogen [Mass/Vol] 15 mg/dL Normal 7-22 [facility] Comment on above: Performed By: #### M MMP, LPBM2, CRBM2 #### [facility] [address] [facility] [address] Comprehensive metabolic 2000 panelon 02-28-2024 Albumin BCG dye [Mass/Vol] 3.6 g/dL 3.5 - 5.1 g/dL [facility] ALP [Catalytic activity/Vol] 85 U/L 38 - 126 U/L [facility] ALT No additional P-5'-P [Catalytic activity/Vol] 39 U/L 11 - 66 U/L [facility] Comment on above: Performed at [facility] Medical Lab [address] [place] [address] AST [Catalytic activity/Vol] 45 U/L High 5 - 40 U/L [facility] Bilirubin [Mass/Vol] 0.8 mg/dL 0.3 - 1.2 mg/dL [facility] Calcium [Mass/Vol] 8.5 mg/dL 8.5 - 10. 5 mg/dL [facility] Chloride [Moles/Vol] 101 mmol/L 98 - 111 meq/L [facility] CO2 [Moles/Vol] 25 mmol/L 23 - 33 meq/L [facility] Creatinine [Mass/Vol] 1.2 mg/dL 0.4 - 1.2 mg/dL [facility] Glucose [Mass/Vol] 94 mg/dL 70 - 108 mg/dL [facility] Interpretation and review of laboratory results Abnormal [facility] Potassium [Moles/Vol] 4.1 mmol/L 3.5 - 5.2 meq/L [facility] Protein [Mass/Vol] 6.2 g/dL 6.1 - 8.0 g/dL [facility] Sodium [Moles/Vol] 140 mmol/L 135 - 145 meq/L [facility] Urea nitrogen [Mass/Vol] 15 mg/dL 7 - 22 mg/dL [facility] EKG 12 Leadon 02-28-2024 Atrial Rate 91 BPM [facility] P [place] 69 degrees [facility] P-R Interval 142 ms [facility] Q-T Interval 360 ms [facility] QRS Duration 100 ms [facility] QTc Calculation (Bazett) 442 ms [facility] R [place] 70 degrees [facility] T [place] 25 degrees [facility] Ventricular Rate 91 BPM [facility] Normal sinus rhythm Incomplete right bundle branch block Nonspecific T wave abnormality Abnormal ECG When compared with ECG of 28-FEB-2024 16:05, No significant change was found Confirmed by Arben Mercado ([id number]) on 02/28/2024 8:19:15 PM [facility] STR M[facility] Unknown, Provider, M D - 02/28/2024 Normal sinus rhythm Incomplete right bundle branch block Nonspecific T wave abnormality Abnormal ECG When compared with ECG of 28-FEB-2024 16:05, No significant change was found Confirmed by Arben Mercado ([id number]) on 02/28/2024 8:19:15 PM [facility] Normal sinus rhythm Incomplete right bundle branch block Nonspecific ST and T wave abnormality Abnormal ECG No previous ECGs available Clinical correlation is indicated Confirmed by Arben Mercado ([id number]) on 02/28/2024 7:52:29 PM [facility] OXANA Unknown, Provider, M D - 02/28/2024 Normal sinus rhythm Incomplete right bundle branch block Nonspecific ST and T wave abnormality Abnormal ECG No previous ECGs available Clinical correlation is indicated Confirmed by Arben Mercado ([id number]) on 02/28/2024 7:52:29 PM [facility] EKG 12 LeadOrdered By: Meeki kenya Unknown on 02-28-2024 Atrial Rate 78 BPM [facility] Work Phone: P [place] 56 degrees [facility] Work Phone: P-R Interval 154 ms [facility] Work Phone: Q-T Interval 386 ms [facility] Work Phone: QRS Duration 102 ms [facility] Work Phone: QTc Calculation (Bazett) 440 ms [facility] Work Phone: R [place] 63 degrees [facility] Work Phone: T [place] 19 degrees [facility] Work Phone: Ventricular Rate 78 BPM [facility] [employer] Work Phone: [facility] Work Phone: EKG 12-LEADon 02-28-2024 EKG 12-LEAD 91 91 142 100 360 442 69 70 25 Normal sinus rhythm Incomplete right bundle branch block Nonspecific T wave abnormality Abnormal ECG When compared with ECG of 28-FEB-2024 16:05, No significant change was found Confirmed by Arben Mercado ([id number]) on 02/28/2024 8:19:15 PM [email or web address] RetrieveTestByDateTime ?[id number]&D ate=28-02-2024&Time=20 %3a02%3a02%3a00&TestTy pe=ECG&Site=3&OutputTy pe=PDF&Ext=PDF Normal [facility] EKG 12-LEAD 78 78 154 102 386 440 56 63 19 Normal sinus rhythm Incomplete right bundle branch block Nonspecific ST and T wave abnormality Abnormal ECG No previous ECGs available Clinical correlation is indicated Confirmed by Arben Mercado ([id number]) on 02/28/2024 7:52:29 PM [email or web address] RetrieveTestByDateTime ?[id number]&D ate=28-02-2024&Time=16 %3a05%3a49%3a00&TestTy pe=ECG&Site=3&OutputTy pe=PDF&Ext=PDF Normal [facility] EKG Rhythm Stripon [facility] GFR, ESTIMATEDon 02-28-2024 GFR/1.73 sq M.predicted MDRD (S/P/Bld) [Vol rate/Area] 83 mL/min/{1.73_m2} Normal >60 [facility] [employer] Comment on above: Pediatric calculator link https://www.kidney.org/professionals/kdoqi/gfr_calculatorped [...] that affects renal tubular secretion. Performed at [facility] [address] [place] [address] Result Comment: Pedi atric calculator link https://www.kidney.org/professionals/kdoqi/gfr_calculatorped [...] tubular secretion. Performed By: #### M MMP, LPBM2, CRBM2 #### [facility] [address] [facility] [address] INR Coag (PPP) [Relative kurt e]on 02-28-2024 [facility] Influenza virus A and B RNA and SARS-CoV-2 (COVID-19) N gene panel MARIKA+probe (Resp)on 02-28-2024 FLUAV RNA MARIKA+probe Ql (Resp) Not detected NOT DETECTED [facility] FLUBV RNA MARIKA+probe Ql (Resp) Not detected NOT DETECTED [facility] Comment on above: Performed at [facility] Lab [address] [place] [address] SARS-CoV-2 (COVID-19) RNA MARIKA+probe Ql (Resp) Not detected NOT DETECTED [facility] Comment on above: Not Detected results do [...] B in nasopharyngeal and nasal swab specimens. [facility] LDon 02-28-2024 LD 532 U/L High 100-190 [facility] Comment on above: Performed By: #### M MMP, LPBM2, CRBM2 #### [facility] [address] [facility] [address] Lactate Dehydrogenaseon 01-31 LDH Lactate to pyruvate reaction [Catalytic activity/Vol] 532 U/L High 100 - 190 U/L [facility] Comment on above: Performed at [facility] [address] [place] [address] MAGNESIUMon 02-28-2024 Magnesium [Mass/Vol] 2.3 mg/dL Normal 1.6-2.4 [facility] Comment on above: Performed By: #### C VFLU #### [employer] [address] [place] [address] MR Brain WO and W contrast I Von 02-28-2024 Radiology Study observation (narrative) [facility] Magnesiumon 02-28-2024 Magnesium [Mass/Vol] 2.3 mg/dL 1.6 - 2.4 mg/dL [facility] Comment on above: Performed at [facility] [address] [place] [address] Magnesium [Mass/Vol]on 02-27 [facility] No Panel Informationon 02-27 Interpretation and review of laboratory results Abnormal [facility] PROTHOMBIN TIMEon 02-28-2024 INR Coag (Bld) [Relative time] 1.13 {INR} Normal 0.85-1.13 [facility] Comment on above: Result Comment: ---- -----INDICATION INR Reference Range DVT, PE, AF, AMI, tissue heart valve 2.0 to 3.0 Mechanical prosthetic valves 2.5 to 3.5 Performed By: #### M MMP, LPBM2, CRBM2 #### [facility] [address] [facility] [place] [address] Protime-INRon 02-28-2024 INR Coag (PPP) [Relative time] 1.13 {INR} 0.85 - 1.13 [facility] Comment on above: ---------INDICATION- INR Reference Range DVT, PE, AF, AMI, tissue heart valve 2.0 to 3.0 Mechanical prosthetic valves 2.5 to 3.5 Performed at [facility] [address] [place] [address] RETICULOCYTE PANELon 024 ABS RETIC COUNT 47.0 thou/mm3 Normal 20.0-115.0 [facility] Comment on above: Performed By: #### M MMP, LPBM2, CRBM2 #### [facility] [address] [place] [address] IMM RETIC FRACTION 18.5 % High 2.3-13.4 [facility] Comment on above: Performed By: #### M MMP, LPBM2, CRBM2 #### [facility] [address] [facility] [place] [address] RETIC HEMOGLOBIN 29.0 pg Normal 28.2-35.7 [facility] Comment on above: Performed By: #### M MMP, LPBM2, CRBM2 #### [facility] [address] [facility] [place] [address] RETICULOCYTES 1.1 % Normal 0.5-2.0 [facility] Comment on above: Performed By: #### M MMP, LPBM2, CRBM2 #### [facility] [address] [facility] [place] [address] Reticulocyteson 02-28-2024 Hemoglobin Auto (Reticulocytes) [Entitic mass] 29.0 pg 28.2 - 35.7 pg [facility] Comment on above: Performed at [facility] [address] [place] [address] Immature reticulocytes/Total reticulocytes (Bld) 18.5 % High 2.3 - 13.4 % [facility] Interpretation and review of laboratory results Abnormal [facility] Reticulocytes (Bld) [#/Vol] 47.0 10*3/uL [facility]100 RBC (Bld) 1.1 % 0.5 - 2.0 % [facility] SARS-COV-2 & INFLUENZA A/[facility] 02-28-2024 INFLUENZA A, RT-PCR Not detected Normal NOT DETECTED [facility] Comment on above: Performed By: #### C VFLU #### [employer] [address] [place] [address] INFLUENZA B, RT-PCR Not detected Normal NOT DETECTED [facility] Comment on above: Performed By: #### C VFLU #### [facility] [employer] [address] [place] [address] SARS-CoV-2 (COVID-19) RNA MARIKA+probe Ql (Unsp spec) Not detected Normal NOT DETECTED [facility] Comment on above: Result Comment: Not Detected [...] specimens. Performed By: #### C VFLU #### [facility] [address] [address] URIC ACIDon 02-28-2024 Urate [Mass/Vol] 7.6 mg/dL High 3.7-7.0 [facility] Comment on above: Performed By: #### M MMP, LPBM2, CRBM2 #### [facility] [address] [facility] [address] Uric Acidon 02-28-2024 Urate [Mass/Vol] 7.6 mg/dL High 3.7 - 7.0 mg/dL [facility] Comment on above: Performed at [facility] [address] [place] [address] VITAMIN B12 FOLATEon 024 Cobalamin (Vitamin B12) [Mass/Vol] 734 pg/mL Normal 211-911 [facility] Comment on above: Performed By: #### C DMITRY, SCAN1 #### [address] [address] FOLATE 4.1 ng/mL Low 4.8-24.2 [facility] Comment on above: Performed By: #### C DMITRY, SCAN1 #### [address] [address] Vitamin B12 & Folateon 02-27 Cobalamin (Vitamin B12) [Mass/Vol] 734 pg/mL 211 - 911 pg/mL [facility] Folate [Mass/Vol] 4.1 ng/mL Low 4.8 - 24.2 ng/mL [facility] Comment on above: Performed at [facility] [address] [place] [address] Interpretation and review of laboratory results Abnormal [facility] aPTT Coag (Bld) [Time]on aPTT Coag (PPP) [Time] 24.6 s [facility] Comment on above: Therapeutic Heparin Reference Range= 60-95 seconds (corresponds to 0.3 to 0.7 u/mL Anti-Xa factor activity) Performed at [facility] [address] [place] [address] 25-hydroxyvitamin D3 [Mass/V ol]on 02-27-2024 [facility] BLOOD SMEAR REVIEWon PATHOLOGIST REVIEWED Estefani FUNES Normal [facility] Comment on above: Result Comment: No s chistocytes seen Performed By: #### C RP, WSR #### [facility] [employer] [address] [address] SMEAR REVIEWED BY PATHOLOGIST see below Normal [facility] Comment on above: Result Comment: See Below Performed By: #### C RP, WSR #### [facility] [employer] [address] [address] C-REACTIVE PROTEINon 024 C-REACTIVE PROTEIN 6.83 mg/dl High 0.00-1.00 [facility] Comment on above: Performed By: #### C RP, WSR #### [employer] [address] [place] [address] C-Reactive Proteinon 024 CRP [Mass/Vol] 6.83 mg/dl High 0.00 - 1.00 mg/dl [facility] Comment on above: Performed at [facility] [employer] [facility] [address] [place] [address] CALCIUM (IONIZED) * WBon CALCIUM (IONIZED) * WB 1.11 mmol/L Low 1.12-1.32 [facility] Comment on above: Performed By: #### C BCWD, SCAN1 #### [employer] [address] [place] [address] CREATININE (URINE)on 024 Creatinine (U) [Mass/Vol] 37.4 mg/dL Normal [facility] Comment on above: Performed By: #### C RP, WSR #### [facility] [employer] [address] [place] [address] CRP [Mass/Vol]on 02-27-2024 Interpretation and review of laboratory results Abnormal [facility] Calcium, Ionizedon 4 Calcium.ionized ISE (Bld) [Moles/Vol] 1.11 mmol/L Low 1.12 - 1.32 mmol/L [facility] Comment on above: Performed at [facility] [employer] [facility] [address] [place] [address] Calcium.ionized ISE (Bld) [M oles/Vol]on 02-27-2024 Interpretation and review of laboratory results Abnormal [facility] Creatinine, Random Urineon 1 Creatinine (U) [Mass/Vol] 37.4 mg/dL [facility] Comment on above: Performed at [facility] [employer] [facility] [address] [place] [address] DRUG ABUSE SCREENon 02-27-20 24 AMPHETAMINE/METHAMP H Negative Normal NEGATIVE [facility] Comment on above: Performed By: #### C RP, WSR #### [facility] [address] [place] [address] BARBITURATE Negative Normal NEGATIVE [facility] Comment on above: Performed By: #### C RP, WSR #### [facility] [address] [place] [address] Benzodiazepines Ql (U) Negative Normal NEGATIVE [facility] Comment on above: Performed By: #### C RP, WSR #### [facility] [address] [place] [address] Cannabinoids Screen Ql (U) Positive Normal NEGATIVE [facility] Comment on above: Performed By: #### C RP, WSR #### [facility] [address] [place] [address] COCAINE METABOLITE Negative Normal NEGATIVE [facility] Comment on above: Performed By: #### C RP, WSR #### [facility] [address] [place] [address] FENTANYL Negative Normal NEGATIVE [facility] Comment on above: Result Comment: A N [...] Performed By: #### C RP, WSR #### [facility] [address] [place] [address] Opiates Ql (U) Negative Normal NEGATIVE [facility] Comment on above: Performed By: #### C RP, WSR #### [facility] [address] [place] [address] OXYCODONE Negative Normal NEGATIVE [facility] Comment on above: Performed By: #### C RP, WSR #### [facility] [address] [place] [address] Phencyclidine Ql (U) Negative Normal NEGATIVE [facility] Comment on above: Performed By: #### C RP, WSR #### [facility] [address] [place] [address] EEG 24 houron 02-27-2024 Rm Davis MD 02/27/2024 11:51 AM LONG-TERM EEG-VIDEO MONITORING CLINICAL NEUROPHYSIOLOGY LABORATORY DEPARTMENT OF NEUROLOGY [facility] Patient: Ethan Donald Age: 33 y.o. Referring Physician: Dolores Del Angel MD History: The patient is a 33 [...] times per day Jenny Gunter APRN - SANJU 10 mL at 02/27/24 0815 sodium chloride flush 0.9 % injection 10 mL 10 mL IntraVENous PRN Jenny Gunter APRN - CHIEF JUVENILE PROBATION OFFICER 0.9 % sodium chloride infusion IntraVENous PRN Jenny Gunter APRN - CNP potassium chloride (KLOR-CON M) extended release tablet 40 mEq 40 mEq Oral PRN Jenny Gunter APRN - CNP Or potassium bicarb-citric acid (EFFER-K) effervescent tablet 40 mEq 40 mEq Oral PRN Jenny Gunter APRN - CNP magnesium sulfate 2000 mg in 50 mL IVPB premix 2,000 mg IntraVENous PRN Jenny Gunter APRN - CNP enoxaparin (LOVENOX) injection 40 mg 40 mg SubCUTAneous Daily Jenny Gunter APRN - CNP 40 mg at 02/27/24 0814 ondansetron (ZOFRAN-ODT) disintegrating tablet 4 mg 4 mg Oral Q8H PRN Jenny Gunter APRN - CNP Or ondansetron (ZOFRAN) injection 4 mg 4 mg IntraVENous Q6H PRN Jenny Gunter APRN - CNP 4 mg at 02/27/24 0815 polyethylene glycol (GLYCOLAX) packet 17 g 17 g Oral Daily PRN Jenny Gunter APRN - CNP acetaminophen (TYLENOL) tablet 650 mg 650 mg Oral Q6H PRN Jenny Gunter APRN - CNP 650 mg at 02/27/24 0128 Or acetaminophen (TYLENOL) suppository 650 mg 650 mg Rectal Q6H PRN Jenny Gunter APRN - CNP LORazepam (ATIVAN) injection 4 mg 4 mg [...] revealed no abnormalities. RM DAVIS MD Diplomate, [place] [employer] Psychiat[employer] and Neurology Diplomate, [place] Board of Clinical Neurophysiology Diplomate, [place] Board of Epilepsy Please note this is a preliminary report and updated daily. The final report will have a summary of behavior and electrographic findings with clinical correlation. [facility] EEG 24 hourOrdered By: Rm Davis on 02-27-2024 [facility] Work Phone: EKG Rhythm Stripon 4 PACEART [facility] PACEART [facility] PACEART [facility] PACEART [facility] HR 78 PACEART [facility] ESR Westergren method (Bld) [Velocity]on 02-27-2024 ESR (Bld) [Velocity] 9 mm/h [facility] Comment on above: Performed at [facility] [employer] [facility] [address] [place] [address] [facility] FIBRINOGENon 02-27-2024 FIBRINOGEN 402 mg/100ml Normal 155-475 [facility] Comment on above: Performed By: #### C BCWD, SCAN1 #### [facility] [address] [place] [address] Fibrinogenon 02-27-2024 Fibrinogen Coag (PPP) [Mass/Vol] 402 mg/dL [facility] Comment on above: Performed at [facility] [employer] [facility] [address] [place] [address] Fibrinogen Coag (PPP) [Mass/ Vol]on 02-27-2024 [facility] No Panel Informationon 02-26 [facility] OSMOLALITY URINEon 4 OSMOLALITY URINE see below Normal 250-750 [facility] Comment on above: Result Comment: Test was sent to an outside laboratory. Please refer to 'Reference' test. Performed By: #### C RP, WSR #### [facility] [employer] [facility] [employer] [address] [place] [address] Osmolality (U) [Osmolality]o n 02-27-2024 [facility] Osmolality, urineon 02-27-20 24 Osmolality (U) [Osmolality] see below [facility] Comment on above: Test was sent to an outside laboratory. Please refer to 'Reference' test. Performed at [facility] [address] [place] [address] PHOSPHORUSon 02-27-2024 Phosphate [Mass/Vol] 4.0 mg/dL Normal 2.4-4.7 [facility] Comment on above: Performed By: #### C BCWD, SCAN1 #### [facility] [employer] [address] [place] [address] POTASSIUM (URINE)on 02-27-20 24 POTASSIUM (URINE) 9.5 meq/l Normal [facility] Comment on above: Performed By: #### C RP, WSR #### [facility] [employer] [address] [place] [address] Path Review, Smearon 024 REVIEWED BY Estefani FUNES [facility] Comment on above: No schistocytes seen Performed at [facility] [address] [place] [address] Smear Review see below [facility] Comment on above: See Below [facility] Phosphate [Mass/Vol]on 02-26 [facility] Phosphoruson 02-27-2024 Phosphate [Mass/Vol] 4.0 mg/dL 2.4 - 4.7 mg/dL [facility] Comment on above: Performed at [facility] [address] [place] [address] Potassium, urine, randomon 1 Potassium (U) [Moles/Vol] 9.5 mmol/L [facility] Comment on above: Performed at [facility] [employer] [facility] [address] [place] [address] REFERENCE SPECIMENon 024 REFERENCE RANGE 50-1400 mOsm Normal [facility] TEST RESULT (WITH UNITS) 182 mOsm Normal [facility] ORIGINAL SAMPLE NUMBER [id number] Normal [facility] REFERENCE LOCATION see below Normal [facility] Comment on above: Result Comment: Perf ormed at [facility] [address] [place] [address] TEST(S) BEING PERFORMED URINE OSMO Normal [facility] Reference lab sampleon 02-26 ORIGINAL SAMPLE NUMBER [id number] [facility] [employer] REFERENCE LOCATION see below [facility] Comment on above: Performed at [facility] [address] [place] [address] Reference Range 50-1400 mOsm Me[employer] TEST RESULTS WITH UNITS 182 mOsm [facility] TEST(S) BEING PERFORMED URINE OSMO [employer] SED RATEon 02-27-2024 SED RATE 9 mm/hr Normal - [facility] Comment on above: Performed By: #### C CANDY, WSR #### [employer] [address] [place] [address] SODIUM (URINE)on 02-27-2024 Sodium (U) [Moles/Vol] mmol/L Normal [facility] Comment on above: Performed By: #### C RP, WSR #### [facility] [address] [place] [address] Sodium, urine, randomon 01-30 Sodium (U) [Moles/Vol] mmol/L meq/l [facility] Comment on above: Performed at [facility] [address] [place] [address] URINALYSIS W/ MICROon 2023 BACTERIA NONE SEEN Normal FEW/NONE SEEN [facility] Comment on above: Performed By: #### U AWM2 #### [facility] [address] [place] [address] CASTS NONE SEEN Normal NONE SEEN [facility] Comment on above: Performed By: #### U AWM2 #### [facility] [address] [place] [address] CASTS 2 NONE SEEN Normal [facility] Comment on above: Performed By: #### U AWM2 #### [facility] [address] [place] [address] Crystals LM Nom (Urine sed) NONE SEEN Normal NONE SEEN [facility] Comment on above: Performed By: #### U AWM2 #### [facility] [address] [place] [address] EPITHELIAL NONE SEEN Normal 3-5/hpf [facility] Comment on above: Performed By: #### U AWM2 #### [facility] [address] [place] [address] MISCELLANEOUS 2 NONE SEEN Normal [facility] Comment on above: Performed By: #### U AWM2 #### [facility] [address] [place] [address] RBC NONE SEEN Normal 0-2/hpf [facility] Comment on above: Performed By: #### U AWM2 #### [facility] [address] [place] [address] RENAL EPITHELIAL NONE SEEN Normal NONE SEEN [facility] Comment on above: Performed By: #### U AWM2 #### [facility] [address] [place] [address] WBC NONE SEEN Normal 0-4/hpf [facility] Comment on above: Performed By: #### U AWM2 #### [facility] [address] [place] [address] YEAST NONE SEEN Normal NONE SEEN [facility] Comment on above: Performed By: #### U AWM2 #### [facility] [address] [place] [address] Bilirubin Ql (U) Negative Normal NEGATIVE [facility] Comment on above: Performed By: #### U AWM2 #### [facility] [address] [place] [address] CHARACTER CLEAR Normal CLR-SL.CLOUD [facility] Comment on above: Performed By: #### U AWM2 #### [address] [address] Color (U) YELLOW Normal YELLOW-STRAW [facility] Comment on above: Performed By: #### U AWM2 #### [facility] [address] [place] [address] Glucose Ql (U) Negative Normal NEGATIVE [facility] Comment on above: Performed By: #### U AWM2 #### [address] [address] Hemoglobin Ql (U) Negative Normal NEGATIVE [facility] Comment on above: Performed By: #### U AWM2 #### [address] [address] Ketones Ql (U) Negative Normal NEGATIVE [facility] Comment on above: Performed By: #### U AWM2 #### [address] [address] LEUKOCYTES Negative Normal NEGATIVE [facility] Comment on above: Performed By: #### U AWM2 #### [facility] [address] [place] [address] Nitrite Ql (U) Negative Normal NEGATIVE [facility] Comment on above: Performed By: #### U AWM2 #### [address] [address] pH (U) 6.5 [pH] Normal 5.0 - 9.0 [facility] Comment on above: Performed By: #### U AWM2 #### [address] [address] Protein Ql (U) Negative Normal NEGATIVE [facility] Comment on above: Performed By: #### U AWM2 #### [facility] [address] [place] [address] Specific gravity (U) [Rel density] 1.007 Normal 1.002-1.030 [facility] Comment on above: Performed By: #### U AWM2 #### [address] [address] Urobilinogen Qn (U) 1.0 {Butch'U}/dL Normal 0.0 - 1. 0 [facility] Comment on above: Performed By: #### U AWM2 #### [facility] [address] [place], [place] [phone] Urinalysis dipstick W Reflex Microscopic panel (U)on 02-27-2024 Bacteria, UA NONE SEEN FEW/NONE SEEN [facility] Bilirubin Ql (U) Negative NEGATIVE [facility] Casts LM.LPF (Urine sed) [#/Area] NONE SEEN /lpf [facility] Character (U) CLEAR CLR-SL.CLOUD [facility] Charcoal LM Ql (Urine sed) NONE SEEN [facility] Comment on above: Performed at [facility] [address] [place] [address] Color (U) YELLOW YELLOW-STRAW [facility] Crystals LM Ql (Urine sed) NONE SEEN NONE SEEN [facility] Epithelial Cells, UA NONE SEEN 3-5/hpf /hpf [facility] Epithelial cells.renal LM.HPF (Urine sed) [#/Area] NONE SEEN NONE SEEN [facility] Fungi.yeastlike LM Ql (Urine sed) NONE SEEN NONE SEEN [facility] Glucose Auto test strip Ql (U) Negative NEGATIVE mg/dl [facility] Hemoglobin Auto test strip Ql (U) Negative NEGATIVE [facility] Ketones Auto test strip Ql (U) Negative NEGATIVE [facility] Leukocyte esterase Auto test strip Ql (U) Negative NEGATIVE [facility] Nitrite Auto test strip Ql (U) Negative NEGATIVE [facility] pH (U) 6.5 [pH] 5.0 - 9.0 [facility] Protein (U) [Mass/Vol] Negative NEGATIVE mg/dl [facility] RBC LM.HPF (Urine sed) [#/Area] NONE SEEN 0-2/hpf /hpf [facility] Specific [place], UA 1.007 1.002 - 1.030 [facility] Urobilinogen, Urine 1.0 [facility] WBC LM.HPF (Urine sed) [#/Area] NONE SEEN 0-4/hpf /hpf [facility] Urine Drug Screenon 02-27-20 [...] are for medical use only. Performed at [facility] [address] [place] [address] Opiates Screen Ql (U) Negative NEGATIVE [facility] Oxycodone Negative NEGATIVE [facility] Phencyclidine Ql (U) Negative NEGATIVE [facility] VITAMIN D TOTAL 25 (OH)on VITAMIN D TOTAL 25 (OH) 32 ng/ml Normal 30-100 [facility] Comment on above: Result Comment: Lashanda min D Status Range Deficiency <20 ng/ml Insuffiency 20-30 ng/ml Sufficiency 30-100 ng/ml Toxicity >100 ng/ml Performed By: #### C VFLU #### [facility] [address] [place] [address] Vitamin D 25 Hydroxyon 02-26 25-hydroxyvitamin D3 [Mass/Vol] 32 ng/mL 30 - 100 ng/ml [facility] Comment on above: Vitamin D Status Ran ge Deficiency <20 ng/ml Insuffiency 20-30 ng/ml Sufficiency 30-100 ng/ml Toxicity >100 ng/ml Performed at [facility] [address] [place] [address] Basic Metabolic Profon 02-25 Anion gap [Moles/Vol] 15 mmol/L Normal 9-16 [facility] Comment on above: Performed By: #### T MARY CHEN, BMP #### [facility] [address] [place], [place] [id number] [employer] Maker: Ramo Jesus MD BUN/CRE Ratio 11 Normal 9-20 [facility] Comment on above: Performed By: #### T MARY CHEN, BMP #### [facility] [address] [place], [place] 5351483 [employer] Maker: Ramo Jesus MD Calcium [Mass/Vol] 9.3 mg/dL Normal 8.6-10.4 [facility] Comment on above: Performed By: #### T MARY CHEN, BMP #### [facility] [address] [place], [place] 8111383 [employer] Maker: Ramo Jesus MD Chloride [Moles/Vol] 97 mmol/L Low 98-107 [facility] Comment on above: Performed By: #### T MARY CHEN, BMP #### [facility] [address] [place], [place] 8274483 [employer] Maker: Ramo Jesus MD CO2 [Moles/Vol] 23 mmol/L Normal 20-31 [facility] Comment on above: Performed By: #### T MARY CHEN, BMP #### [facility] [address] [place], [place] 1024383 [employer] Maker: Ramo Jesus MD Creatinine [Mass/Vol] 1.2 mg/dL Normal 0.70-1.20 [facility] Comment on above: Performed By: #### MARY RODAS, BMP #### [facility] [address] [place] [address] [employer] Maker: Ramo Jesus MD GFR/1.73 sq M.predicted among non-blacks MDRD (S/P/Bld) [Vol rate/Area] 80 mL/min/{1.73_m2} Normal >60 [facility] Comment on above: Result Comment: These results [...] By: #### T MARY CHEN, BMP #### [facility] [address] [place] [address] [employer] Maker: Ramo Jesus MD Glucose [Mass/Vol] 100 mg/dL High 74-99 [facility] Comment on above: Performed By: #### MARY RODAS, BMP #### [facility] [address] [place], [place] 0288283 [employer] Maker: Ramo Jesus MD Potassium [Moles/Vol] 3.3 mmol/L Low 3.7-5.3 [facility] Comment on above: Performed By: #### MARY RODAS, BMP #### [address] [place], [place] [address]83 [employer] Maker: Ramo Jesus MD Sodium [Moles/Vol] 135 mmol/L Low 136-145 [facility] Comment on above: Performed By: #### MARY RODAS, BMP #### [facility] [address] [place] [address] [employer] Maker: Ramo Jesus MD Urea nitrogen [Mass/Vol] 13 mg/dL Normal 6-20 [facility] Comment on above: Performed By: #### MARY RODAS, BMP #### [facility] [address] [place] [address] [employer] Maker: Ramo Jesus MD C-Reactive Proteinon 10-28-2 024 CRP [Mass/Vol] 81.9 mg/L High 0.0-5.0 [facility] Comment on above: Performed By: #### S ED, CRP #### [address] [place] [address] [employer] Maker: Ramo Jesus MD CBC with Diffon 02-26-2024 Abs. Basophil 0.04 k/uL Normal 0.0-0.2 [facility] Comment on above: Performed By: #### T MARY CHEN, BMP #### [address] [place] [address] [employer] Maker: Ramo Jesus MD Abs.Imm.Granulocyte 0.04 k/uL Normal 0.00-0.30 [facility] Comment on above: Performed By: #### T MARY CHEN, BMP #### [address] [place] [address] [employer] Maker: Ramo Jesus MD Abs.Neutrophil (Seg) 2.58 k/uL Normal 1.50-8.10 [facility] Comment on above: Performed By: #### T MARY CHEN, BMP #### [address] [place] [address] [employer] Maker: Ramo Jesus MD Basophils/100 WBC (Bld) 1 % Normal 0-2 [facility] Comment on above: Performed By: #### T MARY CHEN, BMP #### [facility] [address] [place] [address] Dr[address] [place], [place] [address] [employer] Maker: Ramo Jesus MD Eosinophils (Bld) [#/Vol] 0.08 10*3/uL Normal 0.00-0.44 [facility] Comment on above: Performed By: #### T MARY CHEN, BMP #### [address] [place] [address] [employer] Maker: Ramo Jesus MD Eosinophils/100 WBC (Bld) 2 % Normal 1-4 [facility] Comment on above: Performed By: #### T MARY CHEN, BMP #### [facility] [address] [place] [address] [employer] Maker: Ramo Jesus MD Immature granulocytes/100 WBC (Bld) 1 % High 0 [facility] Comment on above: Performed By: #### T MARY CHEN, BMP #### [facility] [address] [place], [place] [address] [employer] Maker: Ramo Jesus MD Lymphocytes (Bld) [#/Vol] 1.03 10*3/uL Low 1.10-3.70 [facility] Comment on above: Performed By: #### MARY RODAS, BMP #### [facility] [address] [place] [address] [employer] Maker: Ramo Jesus MD Lymphocytes/100 WBC (Bld) 25 % Normal 24-43 [facility] Comment on above: Performed By: #### MARY RODAS, BMP #### [address] [place], [place] [address] [employer] Maker: Ramo Jesus MD Monocytes (Bld) [#/Vol] 0.33 10*3/uL Normal 0.10-1.20 [facility] Comment on above: Performed By: #### T MARY CHEN, BMP #### [facility] [address] [place], [place] [address] [employer] Maker: Ramo Jesus MD Monocytes/100 WBC (Bld) 8 % Normal 3-12 [facility] Comment on above: Performed By: #### T MARY CHEN, BMP #### [facility] [address] [place] [id number] [employer] Maker: Ramo Jesus MD Morphology Gianni (Bld) [Interp] Normal Normal [facility] Comment on above: Performed By: #### T MARY CHEN, BMP #### [facility] [address] [place], [place] 349[address]83 [employer] Maker: Ramo Jesus MD Neutrophil (Seg) 63 % Normal 36-65 [facility] Comment on above: Performed By: #### T MARY CHEN, BMP #### [facility] [address] [place], [place] 9472783 [employer] Maker: Ramo Jesus MD Platelet, Fluoresc. 117 k/uL Low 138-453 [facility] Comment on above: Performed By: #### MARY RODAS, BMP #### [facility] [address] [place], [place] [address] [employer] Maker: Ramo Jesus MD PLT, Immature Fract. 3.6 % Normal 1.1-10.3 [facility] Comment on above: Performed By: #### MARY RODAS, BMP #### [address] [place], [place] [address] [employer] Maker: Ramo Jesus MD Erythrocyte distribution width (RBC) [Ratio] 12.0 % Normal 11.8-14.4 [facility] Comment on above: Performed By: #### MARY RODAS, BMP #### [address] [place] [id number] [employer] Maker: Ramo Jesus MD Hematocrit (Bld) [Volume fraction] 41.0 % Normal 40.7-50.3 [facility] Comment on above: Performed By: #### T MARY CHEN, BMP #### [address] [place], [place] 6448183 [employer] Maker: Ramo Jesus MD Hemoglobin (Bld) [Mass/Vol] 14.7 g/dL Normal 13.0-17.0 [facility] Comment on above: Performed By: #### MARY RODAS, BMP #### [address] [place], [facility] [employer] Maker: Ramo Jesus MD MCH (RBC) [Entitic mass] 31.1 pg Normal 25.2-33.5 [facility] Comment on above: Performed By: #### MARY RODAS, BMP #### [facility] [address] [place], [place] 8019283 [employer] Maker: Ramo Jesus MD MCHC (RBC) [Mass/Vol] 35.9 g/dL High 28.4-34.8 [facility] Comment on above: Performed By: #### MARY RODAS, BMP #### [address] [place], [place] 9268083 [employer] Maker: Ramo Jesus MD MCV (RBC) [Entitic vol] 86.9 fL Normal 82.6-102.9 [facility] Comment on above: Performed By: #### MARY RODAS, BMP #### [address] [place], [place] 9681283 [employer] Maker: Ramo Jesus MD NRBC Automated 0.0 per 100 WBC Normal 0.0 [facility] Comment on above: Performed By: #### MARY RODAS, BMP #### [address] [place], [place] [address]44[address]83 [employer] Maker: Ramo Jesus MD Platelet Count See Reflexed IPF Result Normal 138-453 [facility] Comment on above: Performed By: #### MARY RODAS, BMP #### [facility] [address] [place] [address] Dr. [place], [place] 8052583 [employer] Maker: Ramo Jesus MD RBC (Bld) [#/Vol] 4.72 10*6/uL Normal 4.21-5.77 [facility] Comment on above: Performed By: #### MARY RODAS, BMP #### [facility] [address] [place] [address] [address] [place], [place] 8170383 [employer] Maker: Ramo Jesus MD WBC (Bld) [#/Vol] 4.1 10*3/uL Normal 3.5-11.3 [facility] Comment on above: Performed By: #### T MARY CHEN, [facility] #### [facility] [address] [place] [address] [employer] Har[employer] Maker: Ramo Jesus MD CT HEAD WO CONTRASTon [...] DO 02/26/24 Final result Normal [facility] CTA HEAD NECK W CONTRASTon 1 CTA [...] DO 02/26/24 Final result Normal [facility] Glucose, Whole Bloodon 02-25 Glucose [Mass/Vol] 105 mg/dL High 74-100 [facility] Liver Profileon 02-26-2024 Albumin [Mass/Vol] 4.1 g/dL Normal 3.5-5.2 [facility] Comment on above: Performed By: #### L IVP ####[address] , [place] 175[address]83 Lab Director: Ramo Jesus MD Albumin/Glob Ratio 1.3 Normal 1.0-2.5 [facility] Comment on above: Performed By: #### L IVP ####[address] , [place] [id number] Lab Director: Ramo Jesus MD Alkaline Phos 97 U/L Normal 40-129 [facility] Comment on above: Performed By: #### L IVP ####[address] [place] [address] Lab Director: Ramo Jesus MD ALT [Catalytic activity/Vol] 45 U/L Normal 10-50 [facility] Comment on above: Performed By: #### L IVP ####[address] , [place] 5787683 Lab Director: Ramo Jesus MD AST [Catalytic activity/Vol] 54 U/L High 10-50 [facility] Comment on above: Performed By: #### L IVP ####[address] , [place] 8997483 Lab Director: Ramo Jesus MD Bilirubin [Mass/Vol] 1.1 mg/dL Normal 0.00-1.20 [facility] Comment on above: Performed By: #### L IVP ####[address] , [place] 6797483 Lab Director: Ramo Jesus MD Bilirubin, Indirect 0.6 mg/dL Normal 0.0-1.0 [facility] Comment on above: Performed By: #### L IVP ####[address] , [place] 6516183 Lab Director: Ramo Jesus MD Bilirubin.indirect [Mass/Vol] 0.5 mg/dL High 0.00-0.30 [facility] Comment on above: Performed By: #### L IVP ####[address] , [place] 9332883 Lab Director: Ramo Jesus MD Protein [Mass/Vol] 7.2 g/dL Normal 6.6-8.7 [facility] Comment on above: Performed By: #### L IVP ####[address] , [place] 456[address]83 Lab Director: Ramo Jesus MD Prolactinon 02-26-2024 Prolactin 4.70 ng/mL Normal 4.04-15.2 [facility] Comment on above: Result Comment: The presence of macroprolactin may cause interference in female patients with various endocrinological diseases or during . Performed By: #### P ROL #### [place] [address] [place] [address] [employer] Maker: Ra Kilpatrick MD Sedimentation Rateon 024 Sedimentation Rate 17 mm/Hr High 0-15 [facility] Comment on above: Performed By: #### S ED, CRP #### [facility] [address] [place] [address] [employer] Maker: Ramo Jesus MD Troponinon 02-26-2024 Troponin, High Sens 9 ng/L Normal 0-22 [facility] Comment on above: Result Comment: High Sensitivity Troponin values cannot be compared with other Troponin methodologies. Performed By: #### T ROPI, CDP, BMP #### [facility] [address] [place], [place] [address]3 [employer] Maker: Ramo Jesus MD UA w/Reflex Cultureon 2023 Bilirubin, SemiQt,Ur Negative Normal NEG [facility] Comment on above: Performed By: #### U AX, UMICAO #### [facility] [address] [place] [address] [employer] Maker: Ramo Jesus MD Blood, Urine Negative Normal NEG [facility] Comment on above: Performed By: #### U AX, UMICAO #### [facility] [address] [place], [place] 2443283 [employer] Maker: Ramo Jesus MD Clarity (U) Clear Normal CLEAR [facility] Comment on above: Performed By: #### U AX, UMICAO #### [facility] [address] [place], [place] 0235883 [employer] Maker: Ramo Jesus MD Color (U) Yellow Normal YEL [facility] Comment on above: Performed By: #### U AX, UMICAO #### [facility] [address] [place], [place] 1405583 [employer] Maker: Ramo Jesus MD Glucose Ql (U) Negative Normal NEG [facility] Comment on above: Performed By: #### U AX, UMICAO #### [facility] [address] [place], [place] 3574083 [employer] Maker: Ramo Jesus MD Ketones Ql (U) 2+ mg/dL Abnormal NEG [facility] Comment on above: Performed By: #### U AX, UMICAO #### [facility] [address] [place] [address] [address]. [place], [place] 4738383 [employer] Maker: Ramo Jesus MD Leukocyte esterase Test strip Ql (U) Negative Normal NEG [facility] Comment on above: Performed By: #### U AX, UMICAO #### [facility] [address] [place] [address] [place] [address] [employer] Maker: Ramo Jesus MD Nitrite,Ur Negative Normal NEG [facility] Comment on above: Performed By: #### U AX, UMICAO #### [address] [place], [place] 492[address]83 [employer] Maker: Ramo Jesus MD PH,Ur 6.0 Normal 5.0-9.0 [facility] Comment on above: Performed By: #### U AX, UMICAO #### [facility] [address] [place] [address] [place] [address] [employer] Maker: Ramo eJsus MD Protein Ql (U) Negative Normal NEG [facility] Comment on above: Performed By: #### U AX, UMICAO #### [facility] [address] [place] [address] [address]. [place], [place] 5995483 [employer] Maker: Ramo Jesus MD Spec. Marion,Ur 1.010 Normal 1.010-1.020 [facility] Comment on above: Performed By: #### U AX, UMICAO #### [facility] [address] [place] [address] [place] [address] [employer] Maker: Ramo Jesus MD Urobilinogen,Ur Normal Normal 0.0-1.0 [facility] Comment on above: Performed By: #### U AX, UMICAO #### [facility] [address] [place] [address] [address] [place], [place] 312[address]83 [employer] Maker: Ramo Jesus MD Urinalysis,Microon 4 Bacteria TRACE Abnormal NONE [facility] Comment on above: Performed By: #### U AX, UMICAO ####[address] , [place] 0707[address] Lab Director: Ramo Jesus MD Epithelial cells LM Ql (Urine sed) 0 TO 2 Normal 0-5 [facility] Comment on above: Performed By: #### U AX, UMICAO ####[address] 9026783 Lab Director: Ramo Jesus MD Urine RBC's 0 TO 2 Normal 0-2 [facility] Comment on above: Performed By: #### U AX, UMICAO ####[address] [place] [address] Lab Director: Ramo Jesus MD Urine WBC's 0 TO 2 Normal 0-5 [facility] Comment on above: Performed By: #### U AX, UMICAO ####[address] , [place] 8467383 [facility] Director: Ramo Jesus MD XR CHEST PORTABLEon 02-26-20 24 XR CHEST PORTABLE EXAMINATION: ONE XRAY VIEW OF THE CHEST 02/26/2024 1:06 pm COMPARISON: None. HISTORY: ORDERING SYSTEM PROVIDED HISTORY: syncope TECHNOLOGIST PROVIDED HISTORY: syncope 33-year-old male with syncope FINDINGS: AP portable view of the chest front desk monitor leads overlie the chest Trachea midline. No pneumothorax. No acute focal airspace consolidation or pleural effusions. Cardiac and mediastinal contours within normal limits. No acute osseous abnormality. IMPRESSION: No acute focal airspace consolidation or effusions. Interpreted by: Rubio Suarez MD Signed by: Rubio Suarez MD 02/26/24 Final result Normal [facility] OPERATIVE REPORTon 3 OPERATIVE REPORT [address] [address] OPERATIVE REPORT PATIENT NAME: ETHAN DONALD : 1990 MED REC NO: [id number] ROOM: ACCOUNT NO: [id number] ADMIT DATE: 03/13/2023 PROVIDER: Jon Reynoso DATE OF PROCEDURE: 03/13/2023 PREOPERATIVE DIAGNOSES: 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 POSTOPERATIVE DIAGNOSES: 1. Subluxing patella. 2. Chondromalacia. 3. Bardolph-Schlatter disease. PROCEDURES PERFORMED: Arthroscopy of right knee with: 1. Chondroplasty. 2. Lateral release. 3. Mini arthrotomy with excision of Darell-Schlatter ossicle. SURGEON: Dr. Jon Reynoso. ANESTHESIA: General. [...] tendon was then split longitudinally and the Bardolph--Schlatter ossicle was removed from the tendon. X-ray was obtained to verify that all the Darell--Schlatter ossicle had been removed. The tendon was then oversewn with 2-0 Vicryl interrupted xcnflu-ht-[id number] sutures. Skin margins were injected with 0.5% [...] in two weeks. JON REYNOSO PH/[id number] Doc#: [id number] CC: [facility] XR KNEE RIGHT (1-2 VIEWS)on 03-13-2023 XR [...] MD 03/13/23 Final result Normal [facility] GROUP A STREP CULTUREon 07-30 S. pyogenes Ag Ql (Unsp spec) Culture Observations: NEGATIVE FOR GROUP A STREPTOCOCCUS. Normal [facility] Comment on above: Performed By: #### S SCRN, GRASTCX #### [facility] [address] [place] [address] Dr. Pratibha Stevenson STREPT SCREENon 08-11-2022 STREP SCREEN A Negative Normal NEGATIVE [facility] [place] Comment on above: Performed By: #### S SCRN, GRASTCX #### [facility] [address] [place] [address] Dr. Pratibha Stevenson AMYLASEon 07-23-2022 Amylase [Catalytic activity/Vol] 50 U/L Normal 25-115 [facility] Comment on above: Performed By: #### E RUR #### [facility] [address] [place] [address] Dr. Pratibha Stevenson CBC AUTO DIFFon 07-23-2022 BASO # 0.1 103/ul Normal 0.0-0.1 [facility] Comment on above: Performed By: #### L ACT #### [facility] [address] [place] [address] Dr. Pratibha Stevenson Basophils/100 WBC (Bld) 1.0 % Normal 0.2-2.0 [facility] Comment on above: Performed By: #### L ACT #### [facility] [address] [place] [address] Dr. Pratibha Stevenson EO # 0.1 103/ul Normal 0.0-0.7 [facility] Comment on above: Performed By: #### L ACT #### [facility] [address] [place] [address] Dr. Pratibha Stevenson Eosinophils/100 WBC (Bld) 1.7 % Normal 0.9-7.0 [facility] Comment on above: Performed By: #### L ACT #### [facility] [address] [place] [address] [address] Pratibha Stevenson Erythrocyte distribution width (RBC) [Ratio] 12.1 % Normal 11.0-15.0 [facility] Comment on above: Performed By: #### L ACT #### [facility] [address] [place] [address] [address] Pratibha Stevenson Hematocrit (Bld) [Volume fraction] 45.9 % Normal 42.0-54.0 [facility] Comment on above: Performed By: #### L ACT #### [facility] [address] [place] [address] [address] Pratibha Stevenson Hemoglobin (Bld) [Mass/Vol] 15.6 g/dL Normal 14.0-18.0 [facility] Comment on above: Performed By: #### L ACT #### [facility] [address] [place] [address] Dr. Pratibha Stevenson IG # 0.01 10e3/ul Normal 0.00-0.03 [facility] Comment on above: Performed By: #### L ACT #### [facility] [address] [place] [address] [address] Pratibha Stevenson IG % 0.1 % Normal 0.0-0.5 [facility] Comment on above: Performed By: #### L ACT #### [facility] [address] [place] [address] [address] Pratibha Stevenson LYMPH # 2.0 103/ul Normal 1.2-3.8 [facility] Comment on above: Performed By: #### L ACT #### [facility] [address] [place] [address] [address] Pratibha Stevenson Lymphocytes/100 WBC (Bld) 28.8 % Normal 20.5-60.0 [facility] Comment on above: Performed By: #### L ACT #### [facility] [address] [place] [address] [address] Pratibha Stevenson MANUAL DIFF REQ NO Normal [facility] Comment on above: Performed By: #### L ACT #### [facility] [address] [place] [address] Dr. Pratibha Stevenson MCH (RBC) [Entitic mass] 31.3 pg Normal 25.9-34.0 [facility] Comment on above: Performed By: #### L ACT #### [facility] [address] [place] [address] Dr. Pratibha Stevenson MCHC (RBC) [Mass/Vol] 34.0 g/dL Normal 29.9-35.2 [facility] Comment on above: Performed By: #### L ACT #### [facility] [address] [place] [address] Dr. Pratibha Stevenson MCV (RBC) [Entitic vol] 92.2 fL Normal 80.0-94.0 [facility] Comment on above: Performed By: #### L ACT #### [facility] [address] [place] [address] Dr. Pratibha Stevenson MONO # 0.3 103/ul Normal 0.3-0.8 [facility] Comment on above: Performed By: #### L ACT #### [facility] [address] [place] [address] Dr. Pratibha Stevenson Monocytes/100 WBC (Bld) 4.3 % Normal 1.7-12.0 [facility] Comment on above: Performed By: #### L ACT #### [facility] [address] [place] [address] Dr. Pratibha Stevenson NEUT # 4.5 103/ul Normal 1.4-6.5 [facility] Comment on above: Performed By: #### L ACT #### [facility] [address] [place] [address] Dr. Pratibha Stevenson Neutrophils/100 WBC (Bld) 64.1 % Normal 43.0-75.0 [facility] Comment on above: Performed By: #### L ACT #### [facility] [address] [place] [address] Dr. Pratibha Stevenson Platelet mean volume (Bld) [Entitic vol] 10.3 fL Normal 9.5-13.5 [facility] Comment on above: Performed By: #### L ACT #### [facility] [address] [place], [place] [address] Dr. Pratibha Stevenson PLT 219 103/ul Normal 150-450 [facility] Comment on above: Performed By: #### L ACT #### [facility] [address] [place], [place] [address] Dr. Pratibha Stevenson RBC 4.98 106/ul Normal 4.70-6.10 [facility] Comment on above: Performed By: #### L ACT #### [facility] [address] [place], [place] [address] Dr. Pratibha Stevenson WBC 7.1 103/ul Normal 4.0-11.0 [facility] Comment on above: Performed By: #### L ACT #### [facility] [address] [place], [place] [address] ABD/PELV W CONon 07-24-19 CT ABD/PELV W CON CT ABD/PELV W [...] YING WALTON Date: 2022-07-22 23:53 Normal [facility] DRUG SCREEN RAPID (URINE)on 07-23-2022 AMP Negative Normal NEGATIVE [facility] Comment on above: Performed By: #### E RUR #### [facility] [address] [place] [address] Dr. Pratibha Stevenson BAR Negative Normal NEGATIVE [facility] Comment on above: Performed By: #### E RUR #### [facility] [address] [place] [address] [address] Pratibha Stevenson BUP Negative Normal NEGATIVE [facility] Comment on above: Performed By: #### E RUR #### [facility] [address] [place] [address] Dr. Pratibha Stevenson BZO Negative Normal NEGATIVE [facility] Comment on above: Performed By: #### E RUR #### [facility] [facility] [address] [address] [address] Pratibha Stevenson EMELY Negative Normal NEGATIVE [facility] Comment on above: Performed By: #### E RUR #### [facility] [address] [place] [address] Dr. Pratibha Stevenson CUT-OFFS SEE BELOW Normal [facility] Comment on above: Result Comment: AMP [...] ng/mL Performed By: #### E RUR #### [facility] [address] [place] [address] Dr. Pratibha Stevenson DRUG CUT HEADER DRUG CLASS TEST SYST EM CUT-OFF CONCENTRATIONS ARE FOLLOWS: Normal [facility] Comment on above: Performed By: #### E RUR #### [facility] [address] [place] [address] Dr. Pratibha Stevenson mAMP Negative Normal NEGATIVE [facility] Comment on above: Performed By: #### E RUR #### [facility] [address] [place] [address] Dr. Pratibha Stevenson MTD Negative Normal NEGATIVE [facility] Comment on above: Performed By: #### E RUR #### [facility] [address] [place] [address] Dr. Pratibha Stevenson OPI Positive Abnormal NEGATIVE [facility] Comment on above: Performed By: #### E RUR #### [facility] [address] [place] [address] Dr. Pratibha Stevenson OXY Negative Normal NEGATIVE [facility] Comment on above: Performed By: #### E RUR #### [facility] [address] [place] [address] Dr. Pratibha Stevenson PCP Negative Normal NEGATIVE [facility] Comment on above: Performed By: #### E RUR #### [facility] [address] [place] [address] Dr. Pratibha Stevenson PPX Negative Normal NEGATIVE [facility] Comment on above: Performed By: #### E RUR #### [facility] [address] [place] [address] Dr. Pratibha Stevenson TCA Positive Abnormal NEGATIVE [facility] Comment on above: Performed By: #### E RUR #### [facility] [address] [place] [address] Dr. Pratibha Stevenson THC Positive Abnormal NEGATIVE [facility] Comment on above: Performed By: #### E RUR #### [facility] [address] [place] [address] Dr. Pratibha Stevenson ER URINE PROFILEon 3 Bilirubin Ql (U) Negative Normal NEGATIVE [facility] Comment on above: Performed By: #### E RUR #### [facility] [address] [place] [address] Dr. Pratibha Stevenson Clarity (U) CLEAR Normal CLEAR [facility] Comment on above: Performed By: #### E RUR #### [facility] [address] [place] [address] Dr. Pratibha Stevenson Color (U) LT. YELLOW Normal YELLOW [facility] Comment on above: Performed By: #### E RUR #### [facility] [address] [place] [address] Dr. Pratibha RIOS A micrscopic examination will be performed if indicated. Normal [facility] Comment on above: Performed By: #### E RUR #### [facility] [address] [place] [address] Dr. Pratibha Stevenson Glucose Ql (U) Negative Normal NEGATIVE [facility] Comment on above: Performed By: #### E RUR #### [facility] [address] [place] [address] Dr. Pratibha Stevenson Hemoglobin Ql (U) Negative Normal NEGATIVE [facility] Comment on above: Performed By: #### E RUR #### [facility] [address] [place] [address] Dr. Pratibha Stevenson Ketones Ql (U) Negative Normal NEGATIVE [facility] Comment on above: Performed By: #### E RUR #### [facility] [address] [place] [address] Dr. Pratibha Stevenson LEUKOCYTES Negative Normal NEGATIVE [facility] Comment on above: Performed By: #### E RUR #### [facility] [address] [place] [address] Dr. Pratibha Stevenson Nitrite Ql (U) Negative Normal NEGATIVE [facility] Comment on above: Performed By: #### E RUR #### [facility] [address] [place] [address] Dr. Pratibha Stevenson pH (U) 5.5 [pH] Normal 5-9 [facility] Comment on above: Performed By: #### E RUR #### [facility] [address] [place] [address] Dr. Pratibha Stevenson SPEC GRAVITY <=1.005 Abnormal 1.005-<=1.025 [facility] Comment on above: Performed By: #### E RUR #### [facility] [address] [place] [address] Dr. Pratibha Stevenson UA PROTEIN Negative Normal NEGATIVE/ TRACE [facility] Comment on above: Performed By: #### E RUR #### [facility] [address] [place] [address] Dr. Pratibha Stevenson UR MICRO IND NOT INDICATED Normal [facility] Comment on above: Performed By: #### E RUR #### [facility] [address] [place] [address] Dr. Pratibha Stevenson Urobilinogen Qn (U) 0.2 {Butch'U}/dL Normal 0.2 - 1. 0 [facility] Comment on above: Performed By: #### E RUR #### [facility] [address] [place] [address] Dr. Pratibha Stevenson LIPASEon 07-23-2022 Lipase [Catalytic activity/Vol] 126.0 U/L Normal 73.0-393.0 [facility] Comment on above: Performed By: #### E RUR #### [facility] [address] [place] [address] Dr. Pratibha Stevenson PROF 14(COMP METB)on 023 Albumin [Mass/Vol] 4.2 g/dL Normal 3.4-5.0 [facility] Comment on above: Performed By: #### E RUR #### [facility] [address] [place] [address] Dr. Pratibha Stevenson Albumin/Globulin [Mass ratio] 1.4 {ratio} Normal [facility] Comment on above: Performed By: #### E RUR #### [facility] [address] [place] [address] Dr. Pratibha Stevenson ALP [Catalytic activity/Vol] 87 U/L Normal 46-116 [facility] Comment on above: Performed By: #### E RUR #### [facility] [address] [place] [address] Dr. Pratibha Stevenson ALT [Catalytic activity/Vol] 20 U/L Normal 16-63 [facility] Comment on above: Performed By: #### E RUR #### [facility] [address] [address] [address] Pratibha Stevenson Anion gap [Moles/Vol] 12.8 mmol/L Normal [facility] Comment on above: Performed By: #### E RUR #### [facility] [address] [address] [address] Pratibha Stevenson AST [Catalytic activity/Vol] 18 U/L Normal 15-37 [facility] Comment on above: Performed By: #### E RUR #### [facility] [address] [address] [address] Pratibha Stevenson Bilirubin [Mass/Vol] 0.5 mg/dL Normal 0.2-1.0 [facility] Comment on above: Performed By: #### E RUR #### [facility] [address] [place] [address] Dr. Pratibha Stevenson Calcium [Mass/Vol] 9.2 mg/dL Normal 8.5-10.1 [facility] Comment on above: Performed By: #### E RUR #### [facility] [address] [place] [address] Dr. Pratibha Stevenson Chloride [Moles/Vol] 101 mmol/L Normal 98-107 [facility] Comment on above: Performed By: #### E RUR #### [facility] [address] [address] [address] Pratibha Stevenson CO2 [Moles/Vol] 24.7 mmol/L Normal 21.0-32.0 [facility] Comment on above: Performed By: #### E RUR #### [facility] [address] [place] [address] Dr. Pratibha Stevenson Creatinine [Mass/Vol] 1.20 mg/dL Normal 0.70-1.30 [facility] Comment on above: Performed By: #### E RUR #### [facility] [address] [address] [address] Pratibha Stevenson EGFR-AF GUYANESE >60 Normal >=60 [facility] Comment on above: Performed By: #### E RUR #### [facility] [address] [address] [address] Pratibha Stevenson EGFR-NON AF GUYANESE >60 Normal >=60 [facility] Comment on above: Performed By: #### E RUR #### [facility] [address] [address] [address] Pratibha Stevenson Globulin (S) [Mass/Vol] 3.1 g/dL Normal [facility] Comment on above: Performed By: #### E RUR #### [facility] [address] [address] [address] Pratibha Stevenson Glucose [Mass/Vol] 128 mg/dL Critically high 74-106 T [facility] Comment on above: Performed By: #### E RUR #### [facility] [address] [place] [address] Dr. Pratibha Stevenson Potassium [Moles/Vol] 3.5 mmol/L Normal 3.5-5.1 [facility] Comment on above: Performed By: #### E RUR #### [facility] [address] [place] [address] Dr. Pratibha Stevenson Protein [Mass/Vol] 7.3 g/dL Normal 6.4-8.2 [facility] Comment on above: Performed By: #### E RUR #### [facility] [address] [place] [address] Dr. Pratibha Stevenson Sodium [Moles/Vol] 135 mmol/L Critically low 136-145 [facility] Comment on above: Performed By: #### E RUR #### [facility] [address] [place] [address] Dr. Pratibha Stevenson Urea nitrogen [Mass/Vol] 10.0 mg/dL Normal 7.0-18.0 [facility] Comment on above: Performed By: #### E RUR #### [facility] [address] [place] [address] Dr. Pratibha Stevenson Urea nitrogen/Creatinine [Mass ratio] 8.3 mg/mg Normal [facility] Comment on above: Performed By: #### E RUR #### [facility] [address] [address] [address] Pratibha Stevenson Screenson 07-22-2022 Screens [id number]. [id number]:127 Normal [facility] Screens [id number]. 00CD:127 Normal [facility] Patient Educationon 07-22-19 Patient Education Urology [...] Rhubarb. ? Beets. ? Potato chips and solomon islander fries. ? Nuts. ? If you regularly take a diuretic medicine, make sure to eat at least 1?2 fruits or vegetables high in potassium each day. These include: ? Avocado. ? Banana. ? [place], prune, carrot, or tomato juice. ? Baked [...] Salad dr (more content not included)... Normal [facility] Urology Office/Clinic Noteon 07-21-2022 Urology Office/Clinic Note Chief Complaint pt here for a hospital f/u for kidney stones HPI Staff Pt is a 31 yr old Male here today for a hospital f/u from [facility] for a kidney stone. CT scan done 07/20/22 shows Bilateral nonobstructive renal calculi. No hydronephrosis or hydroureter hepatomegaly. Pts previous DX: kidney stone, ureteral stone. IPSS 26. Pt states he started feeling pain on Monday in the right upper back area and presented to the ER on Monday. Pt had CT scans done at [facility]. Pt states the pain [...] of urinary calculi) Urology consult 05/08/22 at [facility] due to 4-5 mm Ureteral Stone S/P [...] calculus (05/08/2022) (more content not included)... Normal [facility] Comment on above: Result Comment: Elec tronically Signed By: Handy WILEY, Shirley Menchaca\.br\Date and Time Signed: 07/21/22 16:55 EDT\.br\Electronically Co-Signed By: Shalini Macias\.br\Date and Time Co-Signed: 07/21/22 09:40 EDT CBC AUTO DIFFon 07-20-2022 BASO # 0.1 103/ul Normal 0.0-0.1 [facility] Comment on above: Performed By: #### C BC #### [facility] [address] [address] [address] Pratibha Stevenson Basophils/100 WBC (Bld) 0.7 % Normal 0.2-2.0 [facility] Comment on above: Performed By: #### C BC #### [facility] [address] [address] [address] Pratibha Stevenson EO # 0.2 103/ul Normal 0.0-0.7 [facility] Comment on above: Performed By: #### C BC #### [facility] [address] [address] [address] Pratibha Stevenson Eosinophils/100 WBC (Bld) 2.4 % Normal 0.9-7.0 [facility] Comment on above: Performed By: #### C BC #### [facility] [address] [address] [address] Pratibha Stevenson Erythrocyte distribution width (RBC) [Ratio] 12.4 % Normal 11.0-15.0 [facility] Comment on above: Performed By: #### C BC #### [facility] [address] [place] [address] Dr. Pratibha Stevenson Hematocrit (Bld) [Volume fraction] 45.8 % Normal 42.0-54.0 [facility] Comment on above: Performed By: #### C BC #### [facility] [address] [address] [address] Pratibha Stevenson Hemoglobin (Bld) [Mass/Vol] 15.6 g/dL Normal 14.0-18.0 [facility] Comment on above: Performed By: #### C BC #### [facility] [address] [place] [address] Dr. Pratibha Stevenson IG # 0.03 10e3/ul Normal 0.00-0.03 [facility] Comment on above: Performed By: #### C BC #### [facility] [address] [place] [address] Dr. Pratibha Stevenson IG % 0.4 % Normal 0.0-0.5 [facility] Comment on above: Performed By: #### C BC #### [facility] [address] [place] [address] Dr. Pratibha Stevenson LYMPH # 3.0 103/ul Normal 1.2-3.8 [facility] Comment on above: Performed By: #### C BC #### [facility] [address] [place] [address] Dr. Pratibha Stevenson Lymphocytes/100 WBC (Bld) 34.7 % Normal 20.5-60.0 [facility] Comment on above: Performed By: #### C BC #### [facility] [address] [place] [address] Dr. Pratibha Stevenson MANUAL DIFF REQ NO Normal [facility] Comment on above: Performed By: #### C BC #### [facility] [address] [place] [address] Dr. Pratibha Stevenson MCH (RBC) [Entitic mass] 31.3 pg Normal 25.9-34.0 [facility] Comment on above: Performed By: #### C BC #### [facility] [address] [place] [address] Dr. Pratibha Stevenson MCHC (RBC) [Mass/Vol] 34.1 g/dL Normal 29.9-35.2 [facility] Comment on above: Performed By: #### C BC #### [facility] [address] [place] [address] Dr. Pratibha Stevenson MCV (RBC) [Entitic vol] 92.0 fL Normal 80.0-94.0 [facility] Comment on above: Performed By: #### C BC #### [facility] [address] [place] [address] Dr. Pratibha Stevenson MONO # 0.5 103/ul Normal 0.3-0.8 [facility] Comment on above: Performed By: #### C BC #### [facility] [address] [place] [address] Dr. Pratibha Stevenson Monocytes/100 WBC (Bld) 5.9 % Normal 1.7-12.0 [facility] Comment on above: Performed By: #### C BC #### [facility] [address] [place] [address] Dr. Pratibha Stevenson NEUT # 4.8 103/ul Normal 1.4-6.5 [facility] Comment on above: Performed By: #### C BC #### [facility] [address] [place] [address] Dr. Pratibha Stevenson Neutrophils/100 WBC (Bld) 55.9 % Normal 43.0-75.0 [facility] Comment on above: Performed By: #### C BC #### [facility] [address] [place] [address] Dr. Pratibha Stevenson Platelet mean volume (Bld) [Entitic vol] 10.0 fL Normal 9.5-13.5 [facility] Comment on above: Performed By: #### C BC #### [facility] [address] [place] [address] Dr. Pratibha Stevenson PLT 243 103/ul Normal 150-450 [facility] Comment on above: Performed By: #### C BC #### [facility] [address] [place] [address] Dr. Pratibha Stevenson RBC 4.98 106/ul Normal 4.70-6.10 [facility] Comment on above: Performed By: #### C BC #### [facility] [address] [place] [address] Dr. Pratibha Stevenson WBC 8.5 103/ul Normal 4.0-11.0 [facility] Comment on above: Performed By: #### C BC #### [facility] [address] [place] [address] ABD/PELVIS WO CONon 03-22 -2023 CT ABD/PELVIS WO CON EXAM: CT ABD/PELVIS [...] ROSALINO VIDALES Date: 2022-07-20 04:12 Normal [facility] ER URINE PROFILEon 3 Bilirubin Ql (U) Negative Normal NEGATIVE [facility] Comment on above: Performed By: #### L ACT #### [facility] [address] [place] [address] Dr. Pratibha Stevenson Clarity (U) CLEAR Normal CLEAR [facility] Comment on above: Performed By: #### L ACT #### [facility] [address] [place] [address] Dr. Pratibha Stevenson Color (U) LT. YELLOW Normal YELLOW [facility] Comment on above: Performed By: #### L ACT #### [facility] [address] [place] [address] Dr. Pratibha Stevenson ERUAHD A micrscopic examination will be performed if indicated. Normal [facility] Comment on above: Performed By: #### L ACT #### [facility] [address] [place] [address] Dr. Pratibha Stevenson Glucose Ql (U) Negative Normal NEGATIVE [facility] Comment on above: Performed By: #### L ACT #### [facility] [address] [address] [address] Pratibha Stevenson Hemoglobin Ql (U) Negative Normal NEGATIVE [facility] Comment on above: Performed By: #### L ACT #### [facility] [address] [place] [address] Dr. Pratibha Stevenson Ketones Ql (U) Negative Normal NEGATIVE [facility] Comment on above: Performed By: #### L ACT #### [facility] [address] [place] [address] Dr. Pratibha Stevenson LEUKOCYTES Negative Normal NEGATIVE [facility] Comment on above: Performed By: #### L ACT #### [facility] [address] [place] [address] Dr. Pratibha Stevenson Nitrite Ql (U) Negative Normal NEGATIVE [facility] Comment on above: Performed By: #### L ACT #### [facility] [address] [place] [address] Dr. Pratibha Stevenson pH (U) 6.0 [pH] Normal 5-9 [facility] Comment on above: Performed By: #### L ACT #### [facility] [address] [place] [address] Dr. Pratibha Stevenson SPEC GRAVITY <=1.005 Abnormal 1.005-<=1.[address] [facility] Comment on above: Performed By: #### L ACT #### [facility] [address] [place] [address] Dr. Pratibha Stevenson UA PROTEIN Negative Normal NEGATIVE/ TRACE [facility] Comment on above: Performed By: #### L ACT #### [facility] [address] [place] [address] Dr. Pratibha Stevenson UR MICRO IND NOT INDICATED Normal [facility] Comment on above: Performed By: #### L ACT #### [facility] [address] [place] [address] Dr. Pratibha Stevenson Urobilinogen Qn (U) 0.2 {Butch'U}/dL Normal 0.2 - 1. 0 [facility] Comment on above: Performed By: #### L ACT #### [facility] [address] [place] [address] Dr. Pratibha Stevenson LACTATE/LACTIC ACIDon 2022 Lactate [Moles/Vol] 0.8 mmol/L Normal 0.4-2.0 [facility] Comment on above: Performed By: #### L ACT #### [facility] [address] [place] [address] Dr. Pratibha Stevenson PROF 14(COMP METB)on 023 Albumin [Mass/Vol] 4.3 g/dL Normal 3.4-5.0 [facility] Comment on above: Performed By: #### E RUR #### [facility] [address] [place] [address] Dr. Pratibha Stevenson Albumin/Globulin [Mass ratio] 1.3 {ratio} Normal [facility] Comment on above: Performed By: #### E RUR #### [facility] [address] [place] [address] Dr. Pratibha Stevenson ALP [Catalytic activity/Vol] 94 U/L Normal 46-116 [facility] Comment on above: Performed By: #### E RUR #### [facility] [address] [address] [address] Pratibha Stevenson ALT [Catalytic activity/Vol] 23 U/L Normal 16-63 [facility] Comment on above: Performed By: #### E RUR #### [facility] [address] [place] [address] Dr. Pratibha Stevenson Anion gap [Moles/Vol] 10.5 mmol/L Normal [facility] Comment on above: Performed By: #### E RUR #### [facility] [address] [place] [address] Dr. Pratibha Stevenson AST [Catalytic activity/Vol] 21 U/L Normal 15-37 [facility] Comment on above: Performed By: #### E RUR #### [facility] [address] [place] [address] Dr. Pratibha Stevenson Bilirubin [Mass/Vol] 0.5 mg/dL Normal 0.2-1.0 [facility] Comment on above: Performed By: #### E RUR #### [facility] [address] [place] [address] Dr. Pratibha Stevenson Calcium [Mass/Vol] 9.3 mg/dL Normal 8.5-10.1 [facility] Comment on above: Performed By: #### E RUR #### [facility] [address] [address] [address] Pratibha Stevenson Chloride [Moles/Vol] 102 mmol/L Normal 98-107 [facility] Comment on above: Performed By: #### E RUR #### [facility] [address] [place] [address] Dr. Pratibha Stevenson CO2 [Moles/Vol] 26.2 mmol/L Normal 21.0-32.0 [facility] Comment on above: Performed By: #### E RUR #### [facility] [address] [place] [address] Dr. Pratibha Stevenson Creatinine [Mass/Vol] 1.18 mg/dL Normal 0.70-1.30 [facility] Comment on above: Performed By: #### E RUR #### [facility] [address] [place] [address] Dr. Pratibha Stevenson EGFR-AF GUYANESE >60 Normal >=60 [facility] Comment on above: Performed By: #### E RUR #### [facility] [address] [place] [address] Dr. Pratibha Stevenson EGFR-NON AF GUYANESE >60 Normal >=60 [facility] Comment on above: Performed By: #### E RUR #### [facility] [address] [place] [address] Dr. Pratibha Stevenson Globulin (S) [Mass/Vol] 3.2 g/dL Normal [facility] Comment on above: Performed By: #### E RUR #### [facility] [address] [place] [address] Dr. Pratibha Stevenson Glucose [Mass/Vol] 115 mg/dL Critically high 74-106 T [facility] Comment on above: Performed By: #### E RUR #### [facility] [address] [place] [address] Dr. Pratibha Stevenson Potassium [Moles/Vol] 3.7 mmol/L Normal 3.5-5.1 [facility] Comment on above: Performed By: #### E RUR #### [facility] [address] [place] [address] Dr. Pratibha Stevenson Protein [Mass/Vol] 7.5 g/dL Normal 6.4-8.2 [facility] Comment on above: Performed By: #### E RUR #### [facility] [address] [address] [address] Pratibha Stevenson Sodium [Moles/Vol] 135 mmol/L Critically low 136-145 [facility] Comment on above: Performed By: #### E RUR #### [facility] [address] [place] [address] Dr. Pratibha Stevenson Urea nitrogen [Mass/Vol] 11.0 mg/dL Normal 7.0-18.0 [facility] Comment on above: Performed By: #### E RUR #### [facility] [address] [place] [address] Dr. Pratibha Stevenson Urea nitrogen/Creatinine [Mass ratio] 9.3 mg/mg Normal [facility] Comment on above: Performed By: #### E RUR #### [facility] [address] [place] [address] Dr. Pratibha Stevenson TROPONIN, HIGH SENSITIVITYon 07-20-2022 HSTROP 5.0 pg/mL Normal 4.0-76.1 [facility] Comment on above: Result Comment: CUT- OFF POINTS HAVE BEEN ESTABLISHED BASED ON THE FOURTH UNIVERSAL DEFINITIONS OF MYOCARDIAL INFARCTION. THE UPPER REFERENCE LIMIT (URL) OF TROPONIN, DEFINED THE 99TH PERCENTILE OF cTnI DISTRIBUTION IN A REFERENCE POPULATION, HAS BEEN CONFIRMED THE DECISION THRESHOLD FOR PR DIAGNOSIS. Performed By: #### E RUR #### [facility] [address] [place] [address] Dr. Pratibha Stevneson Formson 07-15-2022 Forms [id number]#1.0 0CD:127 Normal [facility] Screenson 07-15-2022 Screens [id number]#1.0 0CD:127 Normal [facility] Screens [id number]#1.0 0CD:127 Normal [facility] Patient Educationon 07-14-19 Patient Education Urology [...] Rhubarb. ? Beets. ? Potato chips and solomon islander fries. ? Nuts. ? If you regularly take a diuretic medicine, make sure to eat at least 1?2 fruits or vegetables high in potassium each day. These include: ? Avocado. ? Banana. ? [place], prune, carrot, or tomato juice. ? Baked [...] Salad dr (more content not included)... Normal [facility] Urology Office/Clinic Noteon 07-13-2022 Urology Office/Clinic Note Chief Complaint Pt is here for PO stent removal HPI Staff Ethan is a 31 y.o. male new patient here for [facility] follow up. Urology consult done 05/08/22 @ [facility] due to 4-5mm Ureteral Stone. S/P [...] yo male new patient following up to [facility]. IPSS 13. MARGOTH 14. 1. Ureteral stone (N20.1: Calculus of ureter) Urology consult 05/08/22 at [facility] due to 4-5 mm Ureteral Stone S/P [...] 12/26/1997 Recor (more content not included)... Normal [facility] Comment on above: Result Comment: Elec tronically Signed By: Handy WILEY, Shirley Menchaca\.br\Date and Time Signed: 07/13/22 16:53 EDT\.br\Electronically Co-Signed By: Shalini Macias\.br\Date and Time Co-Signed: 07/13/22 10:29 EDT RAD - MISCon 07-11-2022 RAD - MISC [id number]#1.0 0CD:127 Normal [facility] RAD - Ultrasound Reporton RAD - Ultrasound Report [id number]#1.0 0CD:127 Normal [facility] US KIDNEYSon 07-06-2022 US KIDNEYS EXAMINATION: [...] by: RAMO BLAKE Date: 2022-07-06 11:14 Normal [facility] XR KUB 1 VIEWon 07-06-2022 XR KUB [...] by: SAUMYA MARSH Date: 2022-07-06 11:57 Normal [facility] Coding Summary.on 05-30-2022 Coding Summary. CD:[id number] Gh 0bWw+PGhlYWQ+UH2ROIMrW 07reOSitA5UJ4dYFV1WFAU EGKRLTO0ZBK5prIX2XEukE 2VybiAv GyvomLPaCS47IOm8SJM9sM zdQJkclH3whMOwA4t0UtAt XG06hP25NAigLANtVoP5Zq ZpbjsgbWFy E6buZpRlyMXyLin+PHRhYm xlIHdpZHRoPScxMDAlJyBz oDflAL7aIr9jVVMhRMQtsS xhcHNlOiBj b1uhZKBzPBqcIV6dqQviP1 YfeXI0LPIiz3x1Zp47lQU+ CUYsYBV0sEdyOQnyk811Aj Nsh6doGBR4 vORyXMqjTNF4F19rp9V9FO OjONLeRON1lSL6dN6hkRtn witnZ1ZqfGMxDkS2GUU1uF UbvO9zuGfd ycxrwM4eCxi+S57RYZ1LWZ EAUH2ACiv8S2NzWpwgsAQ+ CX68YMFpDW26tLAjbSRnt2 udjLt0UrJq PFEtOYH7gLvoLXyeb7NiYG RzT49izGPqv4B9JWTazAlw qYBfHvIpzWS9qZ6cNVgekh oql4tskkkx Imnyp3ccrb30jD52K29gTW avOVGvEEZ2FRFaVLJujPwh dj3gcC2oGd9+QJwsv2erc0 qsmAt7ChPz GVAsfdRgoObiXYJ9q9EyBe 12X8WlvZzme4PzQaq3hq64 nDStv4Q6aGH5PJvmDHScsZ 1hXTmwWuX4 QJYvMeEhoC45pFErYPhuDr 5bcEbedNycWR5pNYSyotxg EZTkkQ6yQZMdpQAhlOfaMW 4wNTBpbjtm d775DtQaUTS4ZYJtdWNqW4 IngB7lZxJgZZNdLDBhN1Qo gCIrKBipQ506MRhaBsD6VY OueiIyP8Bw KEJzsGmyDjN4i1E4Vr6Ww3 KjgkigTVS1JIjxCBHyOuMs EwDqGzB5Z5LgPod7NTBpmP jyLC8wD7Ov FVXgahmggeodsZJ1TLWiEA JpzH17sHIiXNblFd0ct2B5 y578QJLhYYTtnF24Wl7ehA ogMTBwdCBU cC5tltuju9bdaksvMgRbKE TqSPj1HQh9MKQlxLvtTnFh CZA8TyP4YER9pRAlvA1qfG jvfppcvT0c Oyc+G67wnK9yYPX1NBJ7lm wpJQEryzCuZL08OF39P2Mk PjwvdGFibGU+PGRpdiBzdH lvOG7hNvSd w9bvy4YsDNtsV4FkXTRlAQ fpDyu2WSJgOGN3uJB2gH1r JQZdZLhtw4L4fBJ8K1Zcro Szjx3fr7em QDFsUQxaZ46yrOJse6Q9XN PlyTY1EOTmqXvcFnNqqK18 Oyc+DGNesFyih1SwIuupr2 qbo8gctDf0 YiCjAGEsjzUbeYgpICN5v7 GoLd44M76rIUvsEASyYUPh NDXeZTRhfGnegf2neW3iZe 8+PGNvbCB3 zAR9zO2fBKStDbJ6TDobE6 77YlTohOYmUegnx1zgr2mp vMk9DmKlXQGclmNubUsoLP G5g7YaSi68 C96hLXxvYGJbNFRmRTNeAO MsmWzvhv1rlL3lBa4+PC9j c7sdzh82vH68bQZ+PHRkIH Z9rOruAJyu SUStkA7pZInbIzJ4EGEkUe GbjD51bFTxHLfaXt8hdFmf dZusHI3vGTPajpllg708Wi Jlv1jkUTDx pAJmEOdsECP2M68re7R5FO UfSTQgQHK0jMZ1mR2dvEch bjogbGVmdDsgdmVydGljYW baFFerN143 IHRvcDsnPlBhdGllbnQgTm YoYBv4V8KoCoa6ZQZteKxd NM5ypECbCVkqAd8uiBqguA wnDZ5vWCDn hefhd369ReKyt5oaNCVioP JsECthSOT4K08yb0A0CXDy RWFrUNO6qMX6qU6ljXqtsb ogbGVmdDsg vhFkxAgmPEkeUXbmV219PV RvcDsnPkJpcnRoIERhdGU6 KM52KB10sVUjy7W8pFC8H0 BhZGRpbmct mxsqdFT1UKKiEUOtgI85Nc 2gwLcrGq9eFRGpDGC8UUBn fAPaP6DioN8xYsQwMXSrZU ZyU9RqfRIs YUasS610FQkgExV9YHWknt MoM3XoLWBehAykIgL7l1I3 Pt1EO2T7GI44FB52cEOje6 P7rBT2Y5Dw MWRxhyudwxpdsIV6ZJWcYS DssB74Pa4bqIezNj8wLPEe CLM7ZBFfvYJqO8VkvL5iIq AjMDAwMDAw C7ZymNOoPTkbU140MXyqLu L6IQQfqeIgT8DhEJRfeEuk NnM6y8X9Ko0IDCj9SF95IW 71iSSsf3E6 hCU9P6DeOKFlzszjrftgzF J2MYExFSAqoB90Ex8dmAar Dk7iLOYbTCC3FDVdvMSsL6 CxsL3wZeYw SPOhDTJnP2GguHGdXPllM2 19AFgzNgI4KSUwqzAxR8Md OSFerQvxRhD7c1C4Hj8LUM AiTZ05QGD9 dZC3IB85MG12V9KoOigztR FibGU+PHRhYmxlIHdpZHRo AIrdZGQnVzCaoNegAO6hNc 9yZGVyLWNv cCnknQXoDiMyx3vdEEWwAF lkJK6xfTakN0EyrGA8XUCd c6d7Tm52Q32nN7ImjQH+PG TvcCA1oGO2 pE0wJwYhNyO3NNhjM835Ng ZdeUTfLuwmz5vok2oxtFd1 WeZ6MMAbrtGwvLucWYE3j2 UzTd87L86y IHdpZHRoPSIxNSUiIHZhbG ujpm6fnM8nJc4+PGNvbCB3 qIW1wA2gOcByVaU2SRpnP7 49InRvcCIv Bvlqs3gve1uhcJr7IzXdIU FvijLftLmfZAX5f7FxTf64 T4ZpdUndv1LxFlv0tg48kM Tpn1E3cVK0 Q2JlQNLttriakOXtvVciMR 3bZKHkpdsoBGZwsO9yLQSv Y0r4HhTpIgO9QGbiZ1Opzq H5YDIlnROz QSsyUXK7H98px0K2PRLgTF NkGDL3yZZ8qO1haSquzrtw bGVmdDsgdmVydGljYWwtYW poF648EDHf kBkfHREgiR6aGSFuwPJguL sxWR4cNYEqgcwzEyVUIANV VlqxDNFPI99pHHhgmCY+PH EjXWP0cVjk VHqdUCUrcG7lSTOgT4q3Eu VaIwW5EQjjU9SmRGWyihnr Ti73sE8mGhVqNvQ9HRblJ9 NjlyG9IQKa kAAcZRpbFEY4M21wp1T1OX XfBOImDPG4fKI3dC1coCis bjogbGVmdDsgdmVydGljYW rrTYuqE009 JEZbyUluBmT8XhP3IuH8FD K2E2OcHpb5GBMjmFnnGH5i aPNmYZnpCw4pkQkvpDwaUA 4wNTBpbjtw KEYgyE0hNLJzaPTnpJwhJN 6tCBKpnccjk433IuKgPAO4 FRYwaLBiF5MafZ2tJuHaVN MzAMNtG8Ge vPPkIHrrQ193DRgtEeA5RT HupeVcF0HiBCQfxQirBkK6 f8K5Hc2kWDGORDKnsnodgU Q+PHRkIHN0 kEjePFwwXMYwfZ4oQWWkQ1 s1HvFvAtT7STobF2FzJMFh hffiZx70mE6wSoLsFaA2KF khL6KvvfR4 HVEwjFBrASecOGV4C62wh4 E2QRDbVOKjFFT7cNU6xG1q bGlnbjogbGVmdDsgdmVydG ljYWwtYWxp D929NQKwsEshNb5tsZC5E8 QhSxd3UNJnvDfqKZ3jbEOb RModHj8dbJjqgRdhKF4vTQ BpbjtwYWRk zZ5bISLloPDmvBmsKI9gSJ Fmlgvft677TvAwQSW8YYIq bATqU7PxlY4cNrIqVLWwEN KdT3UwiOQd TFzpP813TSyrYqC3TQBgjp BkW5ZhNMGqzUorFsB9i9T2 Rx5OqWUmXXPaKL60CN27OI 81N9MkRrih dGFibGU+PHRhYmxlIHdpZH CmQGjcTIUpFaGaiAqgSG0v Lv2cYWPdMXPtcMekuTQgEx Xse7cyXAWo GOloHS1xmQgzL7MyvAY2HN Nxa0h3Uv40E08xD2CdmOH+ BNFefVF2oAP1fC0rCrApCe D8HMziC757 IeYwhZSiRehfb3kqc1dacM u3ZzAgESOowhMzlKwnCGS8 l7AyRo01X28iDUjtJLPzBT IyMCUiIHZh tIdmmn8hyF9oFy8+PGNvbC T3hUG8sW6zZdKxLeO2COab Z916JeDeiPIbMufhH52vN0 JvdXA+PHRy Yvv6FPEhqDwtXB0ixPPxYR llPl2vXRC5ZkVnOrFmFTqf R4JsFOPtzwtxtkndpGJ7EB PjGZXbhM03 Jo0feQjuEt4sDMQnTKE7JD HvcSKoL4FtmQ6hFrIcSSEe NYXhR8CbzABwUZwqQ197CT kcMwU4TAJi wdEvN7KtSBDmpDutWwM2r3 R3Bo0JyCxigUDkEU4iTrAk DNz8F8MhOnn1TFDeaKmbFE 0ncGFkZGlu Gi1tbEjbfWgsPS3wNWOafa nam916SjVxw9pqQQPsvICv IPiwBFI0H31gg4H5NCNtIB IdSCD7iWY9 zB7tkKrsmgrpoUZnuOavgt RgyRwiRAqsULcnD816QWZr qXulVfRMXzd7P3VjIba6AX AphOndRX3y rTTyRXlyEk4itTuhrTooDH 4iOYOdjeesn477KnMih8ye YVCluUCcIRjeTEX8H24ha4 Y7YCDzHQSc DVB7eZC9oM3xnYmzilqzeY VmdDsgdmVydGljYWwtYWxp V568WNRgcAwlYs3OAox5D4 VmDgj1LRRs jFdbGS5poDAmGBtcRd5uwR dwaKvrQR5pVCXzrggca894 CrVoq5pdGVWzpJNxXAyyEW U2T40sh6K6 DPYqEYOyRFC4cFJ5xE8heP lnbjogbGVmdDsgdmVydGlj QPgrZYhuR444PXTqgBazFu BheWVyOjwv dGQ+CN20ms19U1ZlOasgJo s7LWLiTFM0iZX5lM1iOWCz KKskg1R8vQJ8W2NvzuEuuv 8by7xyOWLn ZTog (more content not included)... Normal [facility] Operative Reporton Operative Report Patient: AUDREY DONALD Age: 31 years Sex: Male : 1990 Associated Diagnoses: None Author: Shirley Murrell MD Procedure Operative Information Details: Date/ Time: 05/23/2022 10:00:00. Pre-Op Dx: Kidney stone (CTI33-BB N20.0, Billing Diagnosis, Medical), Foreign Body in [...] serum labs and 24-hour urine . Normal [facility] Comment on above: Result Comment: Elec tronically Signed By: Lue MD, Shirley M.\.br\Date and Time Signed: 05/27/22 17:07 EST Consent for Procedure/Surger yon 05-26-2022 Consent for Procedure/Surgery [id number]#1.0 0CD:127 [facility] IntraOperative Documentson 0 05-26-2022 IntraOperative Documents [id number]#1.0 0CD:127 [facility] Formson 05-24-2022 Forms [id number]#1.0 0CD:127 [facility] Consent for Treatmenton 05-02 Consent for Treatment [id number]#1.0 0CD:127 [facility] Main OR Intraoperative Recor don 05-23-2022 Main OR Intraoperative Record IntraOp Document Type FTURO Summary Primary Physician: Shirley Murrell MD Finalized Date/Time: 05/23/22 10:14:49 Pt. Name: ETHAN DONALD Hannah Yoon/Sex: 1990 Male Med Rec #: [id number] Physician: Shirley Murrell MD Financial #: [id number] Pt. Type: O Room/Bed: / Admit/Disch: 05/23/22 [...] Nereida Cline Role Performed Surgeon - Primary Cryptologic Supervisor - Primary Scrub - Primary Time In [...] NICOLE Eason RN, Ruthann 05/23/22 10:14 Normal [facility] Main OR Preoperative Recordo n 05-23-2022 Main OR Preoperative Record Holding Area Document Type FTURO Summary Primary Physician: Shirley Murrell MD Finalized Date/Time: 05/23/22 10:11:23 Pt. Name: ETHAN DONALD/Sex: 1990 Male Med Rec #: [id number] Physician: Shirley Murrell MD Financial #: [id number] Pt. Type: O Room/Bed: / Admit/Disch: 05/23/22 [...] Comment: difficulty voiding, not Skin Integrity Intact, [place], Warm, & feeling empty, pain in Dry scrotal area SEVERE 7 Constant, denies swelling Vitals - EU Blood Pressure 111/74 Pulse 63 bpm Respirations 16 br/min SPO2 96 % RN Reviewed Yes Last Modified By: NICOLE Eason RN, Ruthann 05/23/22 10:11:21 General Comments: remp:36.1 Finalized By: NICOLE Easno RN, Ruthann Document Signatures Signed By: Shannon Tapia LPN 05/23/22 09:28 NICOLE Eason RN, Ruthann 05/23/22 10:11 [facility] Insurance Correspondence Off iceon 05-17-2022 Insurance Correspondence Office [id number]#1. 00CD:127 [facility] ED Note-Physicianon 05-14-19 ED Note-Physician [id number]#1.0 0CD:127 [facility] RAD - CT Reporton 05-14-[address]22 RAD - CT Report [id number]#1. 00CD:127 [facility] RAD - CT Report [id number]#1. 00CD:127 [facility] RAD - MISCon 05-14-2022 RAD - MISC [id number]#1. 00CD:127 [facility] RAD - MISC [id number]#1. 00CD:127 Normal [facility] RAD - MISC [id number]#1. 00CD:127 Normal [facility] RAD - Ultrasound Reporton RAD - Ultrasound Report [id number]#1. 00CD:127 Normal [facility] AMYLASEon 05-12-2022 Amylase [Catalytic activity/Vol] 39 U/L Normal 25-115 [facility] Comment on above: Performed By: #### E RUR #### [facility] [address] [place] [address] Dr. Pratibha Stevenson CBC AUTO DIFFon 05-12-2022 BASO # 0.0 103/ul Normal 0.0-0.1 [facility] Comment on above: Performed By: #### L ACT #### [facility] [address] [place] [address] Dr. Pratibha Stevenson Basophils/100 WBC (Bld) 0.2 % Normal 0.2-2.0 [facility] Comment on above: Performed By: #### L ACT #### [facility] [address] [place] [address] Dr. Pratibha Stevenson EO # 0.0 103/ul Normal 0.0-0.7 [facility] Comment on above: Performed By: #### L ACT #### [facility] [address] [place] [address] Dr. Pratibha Stevenson Eosinophils/100 WBC (Bld) 0.0 % Critically low 0.9-7.0 [facility] Comment on above: Performed By: #### L ACT #### [facility] [address] [place] [address] Dr. Pratibha Stevenson Erythrocyte distribution width (RBC) [Ratio] 11.7 % Normal 11.0-15.0 [facility] Comment on above: Performed By: #### L ACT #### [facility] [address] [place] [address] Dr. Pratibha Stevenson Hematocrit (Bld) [Volume fraction] 43.0 % Normal 42.0-54.0 [facility] Comment on above: Performed By: #### L ACT #### [facility] [address] [address] [address] Pratibha Stevenson Hemoglobin (Bld) [Mass/Vol] 13.9 g/dL Critically low 14.0-18.0 [facility] Comment on above: Performed By: #### L ACT #### [facility] [address] [address] [address] Pratibha Stevenson IG # 0.03 10e3/ul Normal 0.00-0.03 [facility] Comment on above: Performed By: #### L ACT #### [facility] [address] [place] [address] Dr. Pratibha Stevenson IG % 0.3 % Normal 0.0-0.5 [facility] Comment on above: Performed By: #### L ACT #### [facility] [address] [place] [address] Dr. Pratibha Stevenson LYMPH # 0.8 103/ul Critically low 1.2-3.8 [facility] Comment on above: Performed By: #### L ACT #### [facility] [address] [place] [address] Dr. Pratibha Stevenson Lymphocytes/100 WBC (Bld) 8.6 % Critically low 20.5-60.0 [facility] Comment on above: Performed By: #### L ACT #### [facility] [address] [place] [address] Dr. Pratibha Stevenson MANUAL DIFF REQ NO Normal [facility] Comment on above: Performed By: #### L ACT #### [facility] [address] [place] [address] Dr. Pratibha Stevenson MCH (RBC) [Entitic mass] 31.0 pg Normal 25.9-34.0 [facility] Comment on above: Performed By: #### L ACT #### [facility] [address] [place] [address] Dr. Pratibha Stevenson MCHC (RBC) [Mass/Vol] 32.3 g/dL Normal 29.9-35.2 [facility] Comment on above: Performed By: #### L ACT #### [facility] [address] [address] [address] Pratibha Stevenson MCV (RBC) [Entitic vol] 96.0 fL Critically high 80.0-94.0 [facility] Comment on above: Performed By: #### L ACT #### [facility] [address] [address] [address] Pratibha Stevenson MONO # 0.4 103/ul Normal 0.3-0.8 [facility] Comment on above: Performed By: #### L ACT #### [facility] [address] [address] [address] Pratibha Stevenson Monocytes/100 WBC (Bld) 4.5 % Normal 1.7-12.0 [facility] Comment on above: Performed By: #### L ACT #### [facility] [address] [address] [address] Pratibha Stevenson NEUT # 8.4 103/ul Critically high 1.4-6.[address] [facility] Comment on above: Performed By: #### L ACT #### [facility] [address] [address] [address] Pratibha Stevenson Neutrophils/100 WBC (Bld) 86.4 % Critically high 43.0-75.0 [facility] Comment on above: Performed By: #### L ACT #### [facility] [address] [address] [address] Pratibha Stevenson Platelet mean volume (Bld) [Entitic vol] 10.6 fL Normal 9.5-13.5 [facility] Comment on above: Performed By: #### L ACT #### [facility] [address] [address] [address] Pratibha Stevenson PLT 227 103/ul Normal 150-450 [facility] Comment on above: Performed By: #### L ACT #### [facility] [address] [address] [address] Pratibha Stevenson RBC 4.48 106/ul Critically low 4.70-6.10 [facility] Comment on above: Performed By: #### L ACT #### [facility] [address] [place] [address] Dr. Pratibha Stevenson WBC 9.7 103/ul Normal 4.0-11.0 [facility] Comment on above: Performed By: #### L ACT #### [facility] [address] [place] [address] Dr. Pratibha Stevenson Consent for Procedure/Surger yon 05-12-2022 Consent for Procedure/Surgery [id number]#1.0 0CD:127 Normal [facility] LIPASEon 05-12-2022 Lipase [Catalytic activity/Vol] 110.0 U/L Normal 73.0-393.0 [facility] Comment on above: Performed By: #### E RUR #### [facility] [address] [place] [address] Dr. Pratibha Stevenson Operative Reporton 3 Operative Report [id number]#1.0 0CD:127 Normal [facility] Operative Report [id number]#1.0 0CD:127 Normal [facility] Comment on above: Other Comment: SAMMI DURAN PAGES PROF 14(COMP METB)on 023 Albumin [Mass/Vol] 3.3 g/dL Critically low 3.4-5.0 [facility] Comment on above: Performed By: #### E RUR #### [facility] [address] [place] [address] Dr. Pratibha Stevenson Albumin/Globulin [Mass ratio] 1.2 {ratio} Normal [facility] Comment on above: Performed By: #### E RUR #### [facility] [address] [place] [address] Dr. Pratibha Stevenson ALP [Catalytic activity/Vol] 68 U/L Normal 46-116 [facility] Comment on above: Performed By: #### E RUR #### [facility] [address] [place] [address] Dr. Pratibha Stevenson ALT [Catalytic activity/Vol] 27 U/L Normal 16-63 [facility] Comment on above: Performed By: #### E RUR #### [facility] [address] [place] [address] Dr. Pratibha Stevenson Anion gap [Moles/Vol] 10.4 mmol/L Normal [facility] Comment on above: Performed By: #### E RUR #### [facility] [address] [place] [address] Dr. Pratibha Stevenson AST [Catalytic activity/Vol] 25 U/L Normal 15-37 [facility] Comment on above: Performed By: #### E RUR #### [facility] [address] [place] [address] Dr. Pratibha Stevenson Bilirubin [Mass/Vol] 0.5 mg/dL Normal 0.2-1.0 [facility] Comment on above: Performed By: #### E RUR #### [facility] [address] [place] [address] Dr. Pratibha Stevenson Calcium [Mass/Vol] 8.8 mg/dL Normal 8.5-10.1 [facility] Comment on above: Performed By: #### E RUR #### [facility] [address] [place] [address] Dr. Pratibha Stevenson Chloride [Moles/Vol] 105 mmol/L Normal 98-107 [facility] Comment on above: Performed By: #### E RUR #### [facility] [address] [place] [address] Dr. Pratibha Stevenson CO2 [Moles/Vol] 26.5 mmol/L Normal 21.0-32.0 [facility] Comment on above: Performed By: #### E RUR #### [facility] [address] [place] [address] Dr. Pratibha Stevenson Creatinine [Mass/Vol] 1.15 mg/dL Normal 0.70-1.30 [facility] Comment on above: Performed By: #### E RUR #### [facility] [address] [place] [address] Dr. Pratibha Stevenson EGFR-AF GUYANESE >60 Normal >=60 [facility] Comment on above: Performed By: #### E RUR #### [facility] [address] [address] [address] Pratibha Stevenson EGFR-NON AF GUYANESE >60 Normal >=60 [facility] Comment on above: Performed By: #### E RUR #### [facility] [address] [address] [address] Pratibha Stevenson Globulin (S) [Mass/Vol] 2.7 g/dL Normal [facility] Comment on above: Performed By: #### E RUR #### [facility] [address] [address] [address] Pratibha Stevenson Glucose [Mass/Vol] 119 mg/dL Critically high 74-106 T [facility] Comment on above: Performed By: #### E RUR #### [facility] [address] [address] [address] Pratibha Stevenson Potassium [Moles/Vol] 3.9 mmol/L Normal 3.5-5.1 [facility] Comment on above: Performed By: #### E RUR #### [facility] [address] [address] [address] Pratibha Stevenson Protein [Mass/Vol] 6.0 g/dL Critically low 6.4-8.2 Th [facility] Comment on above: Performed By: #### E RUR #### [facility] [address] [address] [address] Pratibha Stevenson Sodium [Moles/Vol] 138 mmol/L Normal 136-145 [facility] Comment on above: Performed By: #### E RUR #### [facility] [address] [address] [address] Pratibha Stevenson Urea nitrogen [Mass/Vol] 7.0 mg/dL Normal 7.0-18.0 [facility] Comment on above: Performed By: #### E RUR #### [facility] [address] [address] [address] Pratibha Stevenson Urea nitrogen/Creatinine [Mass ratio] 6.1 mg/mg Normal [facility] Comment on above: Performed By: #### E RUR #### [facility] [address] [address] [address] Pratibha Stevenson XR KUB 1 VIEWon [...] ROSALINO VIDALES Date: 2022-05-12 06:43 Normal [facility] AMYLASEon 05-11-2022 Amylase [Catalytic activity/Vol] 52 U/L Normal 25-115 [facility] Comment on above: Performed By: #### C MP, GREG, LIPA #### [facility] [address] [address] [address] Pratibha Stevenson CBC AUTO DIFFon 05-11-2022 BASO # 0.0 103/ul Normal 0.0-0.1 [facility] Comment on above: Performed By: #### C BC #### [facility] [address] [address] [address] Pratibha Stevenson Basophils/100 WBC (Bld) 0.6 % Normal 0.2-2.0 [facility] Comment on above: Performed By: #### C BC #### [facility] [address] [address] [address] Pratibha Stevenson EO # 0.2 103/ul Normal 0.0-0.7 [facility] Comment on above: Performed By: #### C BC #### [facility] [address] [address] [address] Pratibha Stevenson Eosinophils/100 WBC (Bld) 2.3 % Normal 0.9-7.0 [facility] Comment on above: Performed By: #### C BC #### [facility] [address] [place] [address] Dr. Pratibha Stevenson Erythrocyte distribution width (RBC) [Ratio] 11.7 % Normal 11.0-15.0 [facility] Comment on above: Performed By: #### C BC #### [facility] [address] [place] [address] Dr. Pratibha Stevenson Hematocrit (Bld) [Volume fraction] 42.4 % Normal 42.0-54.0 [facility] Comment on above: Performed By: #### C BC #### [facility] [address] [place] [address] Dr. Pratibha Stevenson Hemoglobin (Bld) [Mass/Vol] 14.3 g/dL Normal 14.0-18.0 [facility] Comment on above: Performed By: #### C BC #### [facility] [facility] [address] [place] [address] Dr. Pratibha Stevenson IG # 0.01 10e3/ul Normal 0.00-0.03 [facility] Comment on above: Performed By: #### C BC #### [facility] [address] [place] [address] Dr. Pratibha Stevenson IG % 0.2 % Normal 0.0-0.5 [facility] Comment on above: Performed By: #### C BC #### [facility] [address] [place] [address] Dr. Pratibha Stevenson LYMPH # 2.8 103/ul Normal 1.2-3.8 [facility] Comment on above: Performed By: #### C BC #### [facility] [address] [place] [address] Dr. Pratibha Stevenson Lymphocytes/100 WBC (Bld) 41.8 % Normal 20.5-60.0 [facility] Comment on above: Performed By: #### C BC #### [facility] [address] [place] [address] Dr. Pratibha Stevenson MANUAL DIFF REQ NO Normal [facility] Comment on above: Performed By: #### C BC #### [facility] [address] [place] [address] Dr. Pratibha Stevenson MCH (RBC) [Entitic mass] 31.0 pg Normal 25.9-34.0 [facility] Comment on above: Performed By: #### C BC #### [facility] [address] [place] [address] Dr. Pratibha Stevenson MCHC (RBC) [Mass/Vol] 33.7 g/dL Normal 29.9-35.2 [facility] Comment on above: Performed By: #### C BC #### [facility] [address] [place] [address] Dr. Pratibha Stevenson MCV (RBC) [Entitic vol] 92.0 fL Normal 80.0-94.0 [facility] Comment on above: Performed By: #### C BC #### [facility] [address] [place] [address] Dr. Pratibha Stevenson MONO # 0.5 103/ul Normal 0.3-0.8 [facility] Comment on above: Performed By: #### C BC #### [facility] [address] [place] [address] Dr. Pratibha Stevenson Monocytes/100 WBC (Bld) 7.9 % Normal 1.7-12.0 [facility] Comment on above: Performed By: #### C BC #### [facility] [address] [place] [address] Dr. Pratibha Stevenson NEUT # 3.1 103/ul Normal 1.4-6.5 [facility] Comment on above: Performed By: #### C BC #### [facility] [address] [place] [address] Dr. Pratibha Stevenson Neutrophils/100 WBC (Bld) 47.2 % Normal 43.0-75.0 [facility] Comment on above: Performed By: #### C BC #### [facility] [address] [place] [address] Dr. Pratibha Stevenson Platelet mean volume (Bld) [Entitic vol] 10.7 fL Normal 9.5-13.5 [facility] Comment on above: Performed By: #### C BC #### [facility] [address] [place], [place] [address] Dr. Pratibha Stevenson PLT 216 103/ul Normal 150-450 [facility] Comment on above: Performed By: #### C BC #### [facility] [address] [place], [place] [address] Dr. Pratibha Stevenson RBC 4.61 106/ul Critically low 4.70-6.10 [facility] Comment on above: Performed By: #### C BC #### [facility] [address] [place], [place] [address] Dr. Pratibha Stevenson WBC 6.6 103/ul Normal 4.0-11.0 [facility] Comment on above: Performed By: #### C BC #### [facility] [address] [place] [id number] Pratibha Stevenson CT ABD/PELVIS WO CONon [...] SAUMYA MARSH Date: 2022-05-11 08:31 Normal [facility] LIPASEon 05-11-2022 Lipase [Catalytic activity/Vol] 241.0 U/L Normal 73.0-393.0 [facility] Comment on above: Performed By: #### C WENDY GREG, LIPA #### [facility] [address] [place] [address] Dr. Pratibha Stevenson PROF 14(COMP METB)on 023 Albumin [Mass/Vol] 3.6 g/dL Normal 3.4-5.0 [facility] Comment on above: Performed By: #### C WENDY GREG, LIPA #### [facility] [address] [place] [address] Dr. Pratibha Stevenson Albumin/Globulin [Mass ratio] 1.2 {ratio} Normal [facility] Comment on above: Performed By: #### C WENDY GREG, LIPA #### [facility] [address] [place] [address] Dr. Pratibha Stevenson ALP [Catalytic activity/Vol] 75 U/L Normal 46-116 [facility] Comment on above: Performed By: #### C WENDY GREG, LIPA #### [facility] [address] [place] [address] [address] Pratibha Stevenson ALT [Catalytic activity/Vol] 28 U/L Normal 16-63 [facility] Comment on above: Performed By: #### C WENDY GREG, LIPA #### [facility] [address] [place] [address] Dr. Pratibha Stevenson Anion gap [Moles/Vol] 9.7 mmol/L Normal [facility] Comment on above: Performed By: #### C MP GREG, LIPA #### [facility] [address] [place] [address] Dr. Pratibha Stevenson AST [Catalytic activity/Vol] 19 U/L Normal 15-37 [facility] Comment on above: Performed By: #### C GREG NGUYEN LIPA #### [facility] [address] [place] [address] [address] Pratibha Stevenson Bilirubin [Mass/Vol] 0.5 mg/dL Normal 0.2-1.0 [facility] Comment on above: Performed By: #### C GREG NGUYEN LIPA #### [facility] [address] [place] [address] [address] Pratibha Stevenson Calcium [Mass/Vol] 9.1 mg/dL Normal 8.5-10.1 [facility] Comment on above: Performed By: #### C GREG NGUYEN LIPA #### [facility] [address] [place] [address] Dr. Pratibha Stevenson Chloride [Moles/Vol] 104 mmol/L Normal 98-107 [facility] Comment on above: Performed By: #### C GREG NGUYEN, LIPA #### [facility] [address] [place] [address] [address] Pratibha Stevenson CO2 [Moles/Vol] 29.3 mmol/L Normal 21.0-32.0 [facility] Comment on above: Performed By: #### C GREG NGUYEN, LIPA #### [facility] [address] [place] [address] Dr. Pratibha Stevenson Creatinine [Mass/Vol] 1.21 mg/dL Normal 0.70-1.30 [facility] Comment on above: Performed By: #### C GREG NGUYEN, LIPA #### [facility] [address] [place] [address] Dr. Pratibha Stevenson EGFR-AF GUYANESE >60 Normal >=60 [facility] Comment on above: Performed By: #### C GREG NGUYEN, LIPA #### [facility] [address] [place] [address] Dr. Pratibha Stevenson EGFR-NON AF GUYANESE >60 Normal >=60 [facility] Comment on above: Performed By: #### C GREG NGUYEN, LIPA #### [facility] [address] [place] [address] [address] Pratibha Stevenson Globulin (S) [Mass/Vol] 3.1 g/dL Normal [facility] Comment on above: Performed By: #### C MP, GREG, LIPA #### [facility] [address] [place] [address] [address] Pratibha Stevenson Glucose [Mass/Vol] 88 mg/dL Normal 74-106 [facility] Comment on above: Performed By: #### C MP, GREG, LIPA #### [facility] [address] [place] [address] [address] Pratibha Stevenson Potassium [Moles/Vol] 4.0 mmol/L Normal 3.5-5.1 [facility] Comment on above: Performed By: #### C MP, GREG, LIPA #### [facility] [address] [place] [address] Dr. Pratibha Stevenson Protein [Mass/Vol] 6.7 g/dL Normal 6.4-8.2 [facility] Comment on above: Performed By: #### C WENDY GREG, LIPA #### [facility] [address] [place] [address] [address] Pratibha Stevenson Sodium [Moles/Vol] 139 mmol/L Normal 136-145 [facility] Comment on above: Performed By: #### C MP, GREG, LIPA #### [facility] [address] [place] [address] [address] Pratibha Stevenson Urea nitrogen [Mass/Vol] 8.0 mg/dL Normal 7.0-18.0 [facility] Comment on above: Performed By: #### C MP, GREG, LIPA #### [facility] [address] [place] [address] [address] rPatibha Stevenson Urea nitrogen/Creatinine [Mass ratio] 6.6 mg/mg Normal [facility] Comment on above: Performed By: #### C MP, GREG, LIPA #### [facility] [address] [place] [address] [address] Pratibha Stevenson XR KUB 1 VIEWon [...] MAUREEN GARDNER Date: 2022-05-11 06:36 Normal [facility] AMYLASEon 05-10-2022 Amylase [Catalytic activity/Vol] 41 U/L Normal 25-115 [facility] Comment on above: Performed By: #### L ACT #### [facility] [address] [place] [address] Dr. Pratibha Stevenson CBC AUTO DIFFon 05-10-2022 BASO # 0.0 103/ul Normal 0.0-0.1 [facility] Comment on above: Performed By: #### L ACT #### [facility] [address] [place] [address] Dr. Pratibha Stevenson Basophils/100 WBC (Bld) 0.7 % Normal 0.2-2.0 [facility] Comment on above: Performed By: #### L ACT #### [facility] [address] [place] [address] [address] Pratibha Stevenson EO # 0.2 103/ul Normal 0.0-0.7 [facility] Comment on above: Performed By: #### L ACT #### [facility] [address] [place] [address] [address] Pratibha Stevenson Eosinophils/100 WBC (Bld) 2.8 % Normal 0.9-7.0 [facility] Comment on above: Performed By: #### L ACT #### [facility] [address] [place] [address] Dr. Pratibha Stevenson Erythrocyte distribution width (RBC) [Ratio] 11.8 % Normal 11.0-15.0 [facility] Comment on above: Performed By: #### L ACT #### [facility] [address] [place] [address] Dr. Pratibha Stevenson Hematocrit (Bld) [Volume fraction] 38.8 % Critically low 42.0-54.0 [facility] Comment on above: Performed By: #### L ACT #### [facility] [address] [place] [address] Dr. Pratibha Stevenson Hemoglobin (Bld) [Mass/Vol] 13.3 g/dL Critically low 14.0-18.0 [facility] Comment on above: Performed By: #### L ACT #### [facility] [address] [place] [address] Dr. Pratibha Stevenson IG # 0.02 10e3/ul Normal 0.00-0.03 [facility] Comment on above: Performed By: #### L ACT #### [facility] [address] [place] [address] Dr. Pratibha Stevenson IG % 0.3 % Normal 0.0-0.5 [facility] Comment on above: Performed By: #### L ACT #### [facility] [address] [place] [address] Dr. Pratibha Stevenson LYMPH # 2.1 103/ul Normal 1.2-3.8 [facility] Comment on above: Performed By: #### L ACT #### [facility] [address] [place] [address] Dr. Pratibha Stevenson Lymphocytes/100 WBC (Bld) 35.3 % Normal 20.5-60.0 [facility] Comment on above: Performed By: #### L ACT #### [facility] [address] [place] [address] Dr. Pratibha Stevenson MANUAL DIFF REQ NO Normal [facility] Comment on above: Performed By: #### L ACT #### [facility] [address] [place] [address] [address] Pratibha Stevenson MCH (RBC) [Entitic mass] 30.7 pg Normal 25.9-34.0 [facility] Comment on above: Performed By: #### L ACT #### [facility] [address] [place] [address] Dr. Pratibha Stevenson MCHC (RBC) [Mass/Vol] 34.3 g/dL Normal 29.9-35.2 [facility] Comment on above: Performed By: #### L ACT #### [facility] [address] [place] [address] Dr. Pratibha Stevenson MCV (RBC) [Entitic vol] 89.6 fL Normal 80.0-94.0 [facility] Comment on above: Performed By: #### L ACT #### [facility] [address] [place] [address] Dr. Pratibha Stevenson MONO # 0.4 103/ul Normal 0.3-0.8 [facility] Comment on above: Performed By: #### L ACT #### [facility] [address] [place] [address] Dr. Pratibha Stevenson Monocytes/100 WBC (Bld) 7.4 % Normal 1.7-12.0 [facility] Comment on above: Performed By: #### L ACT #### [facility] [address] [place] [address] Dr. Pratibha Stevenson NEUT # 3.1 103/ul Normal 1.4-6.5 [facility] Comment on above: Performed By: #### L ACT #### [facility] [address] [place] [address] Dr. Pratibha Stevenson Neutrophils/100 WBC (Bld) 53.5 % Normal 43.0-75.0 [facility] Comment on above: Performed By: #### L ACT #### [facility] [address] [place] [address] Dr. Pratibha Stevenson Platelet mean volume (Bld) [Entitic vol] 10.2 fL Normal 9.5-13.5 [facility] Comment on above: Performed By: #### L ACT #### [facility] [address] [place] [address] [address] Pratibha Stevenson PLT 197 103/ul Normal 150-450 [facility] Comment on above: Performed By: #### L ACT #### [facility] [address] [place] [id number] Pratibha Stevenson RBC 4.33 106/ul Critically low 4.70-6.[address] [facility] Comment on above: Performed By: #### L ACT #### [facility] [address] [place] [address] [address] Pratibha Stevenson WBC 5.8 103/ul Normal 4.0-11.0 [facility] Comment on above: Performed By: #### L ACT #### [facility] [address] [place] [address] Dr. Pratibha Stevenson LIPASEon 05-10-2022 Lipase [Catalytic activity/Vol] 134.0 U/L Normal 73.0-393.0 [facility] Comment on above: Performed By: #### L ACT #### [facility] [address] [place] [address] Dr. Pratibha Stevenson PROF 14(COMP METB)on 023 Albumin [Mass/Vol] 3.1 g/dL Critically low 3.4-5.0 [facility] Comment on above: Performed By: #### L ACT #### [facility] [address] [place] [address] Dr. Pratibha Stevenson Albumin/Globulin [Mass ratio] 1.1 {ratio} Normal [facility] Comment on above: Performed By: #### L ACT #### [facility] [address] [place] [address] Dr. Pratibha Stevenson ALP [Catalytic activity/Vol] 68 U/L Normal 46-116 [facility] Comment on above: Performed By: #### L ACT #### [facility] [address] [place] [address] Dr. Pratibha Stevenson ALT [Catalytic activity/Vol] 25 U/L Normal 16-63 [facility] Comment on above: Performed By: #### L ACT #### [facility] [address] [place] [address] [address] Pratibha Stevenson Anion gap [Moles/Vol] 11.1 mmol/L Normal [facility] Comment on above: Performed By: #### L ACT #### [facility] [address] [place] [address] [address] Pratibha Stevenson AST [Catalytic activity/Vol] 16 U/L Normal 15-37 [facility] Comment on above: Performed By: #### L ACT #### [facility] [address] [place] [address] [address] Pratibha Stevenson Bilirubin [Mass/Vol] 0.5 mg/dL Normal 0.2-1.0 [facility] Comment on above: Performed By: #### L ACT #### [facility] [address] [place] [address] [address] Pratibha Stevenson Calcium [Mass/Vol] 8.6 mg/dL Normal 8.5-10.1 [facility] Comment on above: Performed By: #### L ACT #### [facility] [address] [place] [address] [address] Pratibha Stevenson Chloride [Moles/Vol] 105 mmol/L Normal 98-107 [facility] Comment on above: Performed By: #### L ACT #### [facility] [address] [place] [address] [address] Pratibha Stevenson CO2 [Moles/Vol] 26.6 mmol/L Normal 21.0-32.0 [facility] Comment on above: Performed By: #### L ACT #### [facility] [address] [place] [address] [address] Pratibha Stevenson Creatinine [Mass/Vol] 1.12 mg/dL Normal 0.70-1.30 [facility] Comment on above: Performed By: #### L ACT #### [facility] [address] [place] [address] [address] Pratibha Stevenson EGFR-AF GUYANESE >60 Normal >=60 [facility] Comment on above: Performed By: #### L ACT #### [facility] [address] [place] [address] [address] Pratibha Stevenson EGFR-NON AF GUYANESE >60 Normal >=60 [facility] Comment on above: Performed By: #### L ACT #### [facility] [address] [place] [address] [address] Pratibha Stevenson Globulin (S) [Mass/Vol] 2.7 g/dL Normal [facility] Comment on above: Performed By: #### L ACT #### [facility] [address] [place] [address] [address] Pratibha Stevenson Glucose [Mass/Vol] 86 mg/dL Normal 74-106 [facility] Comment on above: Performed By: #### L ACT #### [facility] [address] [place] [address] Dr. Pratibha Stevenson Potassium [Moles/Vol] 3.7 mmol/L Normal 3.5-5.1 [facility] Comment on above: Performed By: #### L ACT #### [facility] [address] [place] [address] [address] Pratibha Steevnson Protein [Mass/Vol] 5.8 g/dL Critically low 6.4-8.2 [facility] Comment on above: Performed By: #### L ACT #### [facility] [address] [place] [address] [address] Pratibha Stevenson Sodium [Moles/Vol] 139 mmol/L Normal 136-145 [facility] Comment on above: Performed By: #### L ACT #### [facility] [address] [place] [address] [address] Pratibha Stevenson Urea nitrogen [Mass/Vol] 12.0 mg/dL Normal 7.0-18.0 [facility] Comment on above: Performed By: #### L ACT #### [facility] [address] [place] [address] Dr. Pratibha Stevenson Urea nitrogen/Creatinine [Mass ratio] 10.7 mg/mg Normal [facility] Comment on above: Performed By: #### L ACT #### [facility] [address] [place] [address] Dr. Pratibha Stevenson US KIDNEYSon 05-10-2022 US [...] SAUMYA MARSH Date: 2022-05-10 08:37 Normal [facility] XR KUB 1 VIEWon 05-10-2022 XR [...] MAUREEN GARDNER Date: 2022-05-10 06:55 Normal [facility] AMYLASEon 05-09-2022 Amylase [Catalytic activity/Vol] 44 U/L Normal 25-115 [facility] Comment on above: Performed By: #### C BC #### [facility] [address] [place] [address] Dr. Pratibha Stevenson CBC AUTO DIFFon 05-09-2022 BASO # 0.1 103/ul Normal 0.0-0.1 [facility] Comment on above: Performed By: #### S SCRN, GRASTCX #### [facility] [address] [place] [address] Dr. Pratibha Stevenson Basophils/100 WBC (Bld) 0.9 % Normal 0.2-2.0 [facility] Comment on above: Performed By: #### S SCRN, GRASTCX #### [facility] [address] [place] [address] Dr. Pratibha Stevenson EO # 0.2 103/ul Normal 0.0-0.7 [facility] Comment on above: Performed By: #### S SCRN, GRASTCX #### [facility] [address] [place] [address] Dr. Pratibha Stevenson Eosinophils/100 WBC (Bld) 2.6 % Normal 0.9-7.0 [facility] Comment on above: Performed By: #### S JOSE ARMANDO, GRASTCX #### [facility] [address] [place] [address] Dr. Pratibha Stevenson Erythrocyte distribution width (RBC) [Ratio] 11.9 % Normal 11.0-15.0 [facility] Comment on above: Performed By: #### S SCRN, GRASTCX #### [facility] [address] [place] [address] Dr. Pratibha Stevenson Hematocrit (Bld) [Volume fraction] 38.8 % Critically low 42.0-54.0 [facility] Comment on above: Performed By: #### S SCRN, GRASTCX #### [facility] [address] [place] [address] Dr. Pratibha Stevenson Hemoglobin (Bld) [Mass/Vol] 13.9 g/dL Critically low 14.0-18.0 [facility] Comment on above: Performed By: #### S SCRN, GRASTCX #### [facility] [address] [place] [address] Dr. Pratibha Stevenson IG # 0.02 10e3/ul Normal 0.00-0.03 [facility] Comment on above: Performed By: #### S SCRN, GRASTCX #### [facility] [address] [place] [address] Dr. Pratibha Stevenson IG % 0.4 % Normal 0.0-0.5 [facility] Comment on above: Performed By: #### S SCRN, GRASTCX #### [facility] [address] [place] [address] Dr. Pratibha Stevenson LYMPH # 2.0 103/ul Normal 1.2-3.8 [facility] Comment on above: Performed By: #### S SCRTian GRASTCX #### [facility] [address] [place] [address] Dr. Pratibha Stevenson Lymphocytes/100 WBC (Bld) 34.9 % Normal 20.5-60.0 [facility] Comment on above: Performed By: #### S JOSE ARMANDO GRASTCX #### [facility] [address] [place] [address] Dr. Pratibha Stevenson MANUAL DIFF REQ NO Normal [facility] Comment on above: Performed By: #### S JOSE ARMANDO GRASTCX #### [facility] [address] [place] [address] Dr. Pratibha Stevenson MCH (RBC) [Entitic mass] 31.0 pg Normal 25.9-34.0 [facility] Comment on above: Performed By: #### S JOSE ARMANDO GRASTCX #### [facility] [address] [place] [address] Dr. Pratibha Stevenson MCHC (RBC) [Mass/Vol] 35.8 g/dL Critically high 29.9-35.2 [facility] Comment on above: Performed By: #### S JOSE ARMANDO, GRASTCX #### [facility] [address] [place] [address] Dr. Pratibha Stevenson MCV (RBC) [Entitic vol] 86.6 fL Normal 80.0-94.0 [facility] Comment on above: Performed By: #### S SCRN, GRASTCX #### [facility] [address] [place] [address] Dr. Pratibha Stevenson MONO # 0.4 103/ul Normal 0.3-0.8 [facility] Comment on above: Performed By: #### S SCRN, GRASTCX #### [facility] [address] [place] [address] Dr. Pratibha Stevenson Monocytes/100 WBC (Bld) 6.2 % Normal 1.7-12.0 [facility] Comment on above: Performed By: #### S SCRN, GRASTCX #### [facility] [address] [place] [address] [address] Pratibha Stevenson NEUT # 3.1 103/ul Normal 1.4-6.5 [facility] Comment on above: Performed By: #### S SCRN, GRASTCX #### [facility] [address] [place] [address] Dr. Pratibha Stevenson Neutrophils/100 WBC (Bld) 55.0 % Normal 43.0-75.0 [facility] Comment on above: Performed By: #### S SCRN, GRASTCX #### [facility] [address] [place] [address] Dr. Pratibha Stevenson Platelet mean volume (Bld) [Entitic vol] 9.7 fL Normal 9.5-13.5 [facility] Comment on above: Performed By: #### S BELAN, GRASTCX #### [facility] [address] [place] [address] Dr. Pratibha Stevenson PLT 201 103/ul Normal 150-450 [facility] Comment on above: Performed By: #### S SCRN, GRASTCX #### [facility] [address] [place] [address] Dr. Pratibha Stevenson RBC 4.48 106/ul Critically low 4.70-6.10 [facility] Comment on above: Performed By: #### S SCRN, GRASTCX #### [facility] [address] [place] [address] Dr. Pratibha Stevenson WBC 5.7 103/ul Normal 4.0-11.0 [facility] Comment on above: Performed By: #### S SCRN, GRASTCX #### [facility] Laboratory [address] [place] [address] Dr. Pratibha Stevenson CULTURE URINEon 05-09-2022 CULTURE URINE Culture Observations : NO GROWTH. Normal [facility] Comment on above: Performed By: #### C BC #### [facility] [address] [place] [address] Dr. Pratibha Stevenson LIPASEon 05-09-2022 Lipase [Catalytic activity/Vol] 98.0 U/L Normal 73.0-393.0 [facility] Comment on above: Performed By: #### C BC #### [facility] [address] [place] [address] Dr. Pratibha Stevenson PROF 14(COMP METB)on 023 Albumin [Mass/Vol] 3.2 g/dL Critically low 3.4-5.0 Th e [facility] Comment on above: Performed By: #### C BC #### [facility] [address] [place] [address] Dr. Pratibha Stevenson Albumin/Globulin [Mass ratio] 1.3 {ratio} Normal [facility] Comment on above: Performed By: #### C BC #### [facility] [address] [place] [address] Dr. Pratibha Stevenson ALP [Catalytic activity/Vol] 74 U/L Normal 46-116 [facility] Comment on above: Performed By: #### C BC #### [facility] [address] [place] [address] Dr. Pratibha Stevenson ALT [Catalytic activity/Vol] 25 U/L Normal 16-63 [facility] Comment on above: Performed By: #### C BC #### [facility] [address] [place] [address] Dr. Pratibha Stevenson Anion gap [Moles/Vol] 10.7 mmol/L Normal [facility] Comment on above: Performed By: #### C BC #### [facility] [address] [place] [address] Dr. Pratibha Stevenson AST [Catalytic activity/Vol] 18 U/L Normal 15-37 [facility] Comment on above: Performed By: #### C BC #### [facility] [address] [address] [address] Pratibha Stevenson Bilirubin [Mass/Vol] 0.7 mg/dL Normal 0.2-1.0 [facility] Comment on above: Performed By: #### C BC #### [facility] [address] [address] [address] Pratibha Stevenson Calcium [Mass/Vol] 8.5 mg/dL Normal 8.5-10.1 [facility] Comment on above: Performed By: #### C BC #### [facility] [address] [place] [address] Dr. Pratibha Stevenson Chloride [Moles/Vol] 106 mmol/L Normal 98-107 [facility] Comment on above: Performed By: #### C BC #### [facility] [address] [place] [address] Dr. Pratibha Stevenson CO2 [Moles/Vol] 27.1 mmol/L Normal 21.0-32.0 [facility] Comment on above: Performed By: #### C BC #### [facility] [address] [place] [address] Dr. Pratibha Stevenson Creatinine [Mass/Vol] 1.16 mg/dL Normal 0.70-1.30 [facility] Comment on above: Performed By: #### C BC #### [facility] [address] [place] [address] Dr. Pratibha Stevenson EGFR-AF GUYANESE >60 Normal >=60 [facility] Comment on above: Performed By: #### C BC #### [facility] [address] [place] [address] Dr. Pratibha Stevenson EGFR-NON AF GUYANESE >60 Normal >=60 [facility] Comment on above: Performed By: #### C BC #### [facility] [address] [place] [address] Dr. Pratibha Stevenson Globulin (S) [Mass/Vol] 2.5 g/dL Normal [facility] Comment on above: Performed By: #### C BC #### [facility] [address] [place] [address] Dr. Pratibha Stevenson Glucose [Mass/Vol] 90 mg/dL Normal 74-106 The [facility] Comment on above: Performed By: #### C BC #### [facility] [address] [address] [address] Pratibha Stevenson Potassium [Moles/Vol] 3.8 mmol/L Normal 3.5-5.1 [facility] Comment on above: Performed By: #### C BC #### [facility] [address] [address] [address] Pratibha Stevenson Protein [Mass/Vol] 5.7 g/dL Critically low 6.4-8.2 Th [facility] Comment on above: Performed By: #### C BC #### [facility] [address] [address] [address] Pratibha Stevenson Sodium [Moles/Vol] 140 mmol/L Normal 136-145 [facility] Comment on above: Performed By: #### C BC #### [facility] [address] [address] [address] Pratibha Stevenson Urea nitrogen [Mass/Vol] 12.0 mg/dL Normal 7.0-18.0 [facility] Comment on above: Performed By: #### C BC #### [facility] [address] [address] [address] Pratibha Stevenson Urea nitrogen/Creatinine [Mass ratio] 10.3 mg/mg Normal [facility] Comment on above: Performed By: #### C BC #### [facility] [address] [address] [address] Pratibha Stevenson XR KUB 1 VIEWon [...] EDIS HERNÁNDEZ Date: 2022-05-09 05:31 Normal The [facility] CBC AUTO DIFFon 05-08-2022 BASO # 0.1 103/ul Normal 0.0-0.1 The [facility] Comment on above: Performed By: #### C BC #### [facility] [address] [address] [address] Pratibha Stevenson Basophils/100 WBC (Bld) 0.4 % Normal 0.2-2.0 The [facility] Comment on above: Performed By: #### C BC #### [facility] [address] [address] [address] Pratibha Stevenson EO # 0.1 103/ul Normal 0.0-0.7 The [facility] Comment on above: Performed By: #### C BC #### [facility] [address] [address] [address] Pratibha Stevenson Eosinophils/100 WBC (Bld) 1.0 % Normal 0.9-7.0 The [facility] Comment on above: Performed By: #### C BC #### [facility] [address] [place] [address] Dr. Pratibha Stevenson Erythrocyte distribution width (RBC) [Ratio] 11.9 % Normal 11.0-15.0 The [facility] Comment on above: Performed By: #### C BC #### [facility] [address] [place] [address] Dr. Pratibha Stevenson Hematocrit (Bld) [Volume fraction] 47.4 % Normal 42.0-54.0 The [facility] Comment on above: Performed By: #### C BC #### [facility] [address] [place] [address] Dr. Pratibha Stevenson Hemoglobin (Bld) [Mass/Vol] 17.3 g/dL Normal 14.0-18.0 The [facility] Comment on above: Performed By: #### C BC #### [facility] [address] [place] [address] Dr. Pratibha Stevenson IG # 0.05 10e3/ul Critically high 0.00-0.03 [facility] Comment on above: Performed By: #### C BC #### [facility] [address] [place] [address] Dr. Pratibha Stevenson IG % 0.4 % Normal 0.0-0.5 [facility] Comment on above: Performed By: #### C BC #### [facility] [address] [place] [address] Dr. Pratibha Stevenson LYMPH # 2.4 103/ul Normal 1.2-3.8 [facility] Comment on above: Performed By: #### C BC #### [facility] [address] [place] [address] Dr. Pratibha Stevenson Lymphocytes/100 WBC (Bld) 18.6 % Critically low 20.5-60.0 [facility] Comment on above: Performed By: #### C BC #### [facility] [address] [place] [address] Dr. Pratibha Stevenson MANUAL DIFF REQ NO Normal [facility] Comment on above: Performed By: #### C BC #### [facility] [address] [place] [address] Dr. Pratibha Stevenson MCH (RBC) [Entitic mass] 31.3 pg Normal 25.9-34.0 [facility] Comment on above: Performed By: #### C BC #### [facility] [address] [place] [address] Dr. Pratibha Stevenson MCHC (RBC) [Mass/Vol] 36.5 g/dL Critically high 29.9-35.2 [facility] Comment on above: Performed By: #### C BC #### [facility] [address] [place] [address] Dr. Pratibha Stevenson MCV (RBC) [Entitic vol] 85.7 fL Normal 80.0-94.0 [facility] Comment on above: Performed By: #### C BC #### [facility] [address] [place] [address] Dr. Pratibha Stevenson MONO # 0.6 103/ul Normal 0.3-0.8 [facility] Comment on above: Performed By: #### C BC #### [facility] [address] [place] [address] Dr. Pratibha Stevenson Monocytes/100 WBC (Bld) 5.0 % Normal 1.7-12.0 [facility] Comment on above: Performed By: #### C BC #### [facility] [address] [place] [address] Dr. Pratibha Stevenson NEUT # 9.6 103/ul Critically high 1.4-6.[address] [facility] Comment on above: Performed By: #### C BC #### [facility] [address] [place] [address] Dr. Pratibha Stevenson Neutrophils/100 WBC (Bld) 74.6 % Normal 43.0-75.0 [facility] Comment on above: Performed By: #### C BC #### [facility] [address] [place] [address] Dr. Pratibha Stevenson Platelet mean volume (Bld) [Entitic vol] 9.6 fL Normal 9.5-13.5 The [facility] Comment on above: Performed By: #### C BC #### [facility] [address] [place] [address] Dr. Pratibha Stevenson PLT 286 103/ul Normal 150-450 The [facility] Comment on above: Performed By: #### C BC #### [facility] [address] [place] [address] Dr. Pratibha Stevenson RBC 5.53 106/ul Normal 4.70-6.10 The [facility] Comment on above: Performed By: #### C BC #### [facility] [address] [place] [address] Dr. Pratibha Stevenson WBC 12.8 103/ul Critically high 4.0-11.0 [facility] Comment on above: Performed By: #### C BC #### [facility] [address] [place] [address] ABD/PELV Maura Sidhu 05-08-19 CT ABD/PELV W CON EXAM: CT [...] CHAGO ROLLINS Date: 2022-05-08 18:37 Normal The [facility] Covid-19 PCR (CVDTB)on SARS-CoV-2 (COVID-19) RNA MARIKA+probe Ql (Unsp spec) Not detected Normal NOT DETECTED The [facility] Comment on above: Result Comment: When [...] for this test is supported by the [place] of Health and Human Service's declaration that [...] used). Performed By: #### C BC #### [facility] [address] [place] [address] Dr. Pratibha Stevenson ER URINE PROFILEon 3 Bilirubin Ql (U) SMALL Abnormal NEGATIVE The [facility] Comment on above: Performed By: #### C BC #### [facility] [address] [place] [address] Dr. Pratibha Stevenson Clarity (U) CLEAR Normal CLEAR The [facility] Comment on above: Performed By: #### C BC #### [facility] [address] [place] [address] Dr. Pratibha Stevenson Color (U) DK. ORANGE Abnormal YELLOW The [facility] Comment on above: Performed By: #### C BC #### [facility] [address] [place] [address] Dr. Pratibha Stevenson ERUAHD A micrscopic examination will be performed if indicated. Normal The [facility] Comment on above: Performed By: #### C BC #### [facility] [address] [place] [address] Dr. Pratibha Stevenson Glucose Ql (U) Negative Normal NEGATIVE The [facility] Comment on above: Performed By: #### C BC #### [facility] [address] [place] [address] Dr. Pratibha Stevenson Hemoglobin Ql (U) LARGE Abnormal NEGATIVE [facility] Comment on above: Performed By: #### C BC #### [facility] [address] [place] [address] Dr. Pratibha Stevenson Ketones Ql (U) TRACE Abnormal NEGATIVE [facility] Comment on above: Performed By: #### C BC #### [facility] [address] [place] [address] Dr. Pratibha Stevenson LEUKOCYTES Negative Normal NEGATIVE [facility] Comment on above: Performed By: #### C BC #### [facility] [address] [place] [address] Dr. Pratibha Stevenson Nitrite Ql (U) Negative Normal NEGATIVE [facility] Comment on above: Performed By: #### C BC #### [facility] [address] [place] [address] Dr. Pratibha Stevenson pH (U) 6.5 [pH] Normal 5-9 [facility] Comment on above: Performed By: #### C BC #### [facility] [address] [place] [address] Dr. Pratibha Stevenson Protein (U) [Mass/Vol] 100 mg/dL Abnormal NEGATIVE/ TRACE [facility] Comment on above: Performed By: #### C BC #### [facility] [address] [place] [address] Dr. Pratibha Stevenson SPEC GRAVITY 1.010 Normal 1.005-<=1.[address] [facility] Comment on above: Performed By: #### C BC #### [facility] [address] [place] [address] Dr. Pratibha Stevenson UR MICRO IND INDICATED Normal [facility] Comment on above: Performed By: #### C BC #### [facility] [address] [place] [address] Dr. Pratibha Stevenson Urobilinogen Qn (U) 1.0 {Butch'U}/dL Normal 0.2 - 1. 0 [facility] Comment on above: Performed By: #### C BC #### [facility] [address] [place] [address] Dr. Pratibha Stevenson LIPASEon 05-08-2022 Lipase [Catalytic activity/Vol] 417.0 U/L Critically high 73.0-393.0 [facility] Comment on above: Performed By: #### L ACT #### [facility] [address] [place] [address] Dr. Pratibha Stevenson PROF 14(COMP METB)on 023 Albumin [Mass/Vol] 4.5 g/dL Normal 3.4-5.0 The [facility] Comment on above: Performed By: #### L ACT #### [facility] [address] [place] [address] Dr. Pratibha Stevenson Albumin/Globulin [Mass ratio] 1.3 {ratio} Normal [facility] Comment on above: Performed By: #### L ACT #### [facility] [address] [place] [address] Dr. Pratibha Stevenson ALP [Catalytic activity/Vol] 97 U/L Normal 46-116 The [facility] Comment on above: Performed By: #### L ACT #### [facility] [address] [place] [address] Dr. Pratibha Stevenson ALT [Catalytic activity/Vol] 35 U/L Normal 16-63 [facility] Comment on above: Performed By: #### L ACT #### [facility] [address] [place] [address] Dr. Pratibha Stevenson Anion gap [Moles/Vol] 13.7 mmol/L Normal [facility] Comment on above: Performed By: #### L ACT #### [facility] [address] [place] [address] Dr. Pratibha Stevenson AST [Catalytic activity/Vol] 22 U/L Normal 15-37 The [facility] Comment on above: Performed By: #### L ACT #### [facility] [address] [place] [address] Dr. Pratibha Stevenson Bilirubin [Mass/Vol] 0.7 mg/dL Normal 0.2-1.0 The [facility] Comment on above: Performed By: #### L ACT #### [facility] [address] [place] [address] Dr. Pratibha Stevenson Calcium [Mass/Vol] 9.6 mg/dL Normal 8.5-10.1 The [facility] Comment on above: Performed By: #### L ACT #### [facility] [address] [address] [address] Pratibha Stevenson Chloride [Moles/Vol] 99 mmol/L Normal 98-107 [facility] Comment on above: Performed By: #### L ACT #### [facility] [address] [address] [address] Pratibha Stevenson CO2 [Moles/Vol] 29.0 mmol/L Normal 21.0-32.0 [facility] Comment on above: Performed By: #### L ACT #### [facility] [address] [address] [address] Pratibha Stevenson Creatinine [Mass/Vol] 1.43 mg/dL Critically high 0.70-1.30 [facility] Comment on above: Performed By: #### L ACT #### [facility] [address] [address] [address] Pratibha Stevenson EGFR-AF GUYANESE >60 Normal >=60 [facility] Comment on above: Performed By: #### L ACT #### [facility] [address] [address] [address] Pratibha Stevenson EGFR-NON AF GUYANESE 58 mL/min/1.73m2 Critically low >=60 [facility] Comment on above: Performed By: #### L ACT #### [facility] [address] [address] [address] Pratibha Stevenson Globulin (S) [Mass/Vol] 3.5 g/dL Normal [facility] Comment on above: Performed By: #### L ACT #### [facility] [address] [address] [address] Pratibha Stevenson Glucose [Mass/Vol] 127 mg/dL Critically high 74-106 [facility] Comment on above: Performed By: #### L ACT #### [facility] [address] [address] [address] Pratibha Stevenson Potassium [Moles/Vol] 3.7 mmol/L Normal 3.5-5.1 [facility] Comment on above: Performed By: #### L ACT #### [facility] [address] [address] [address] Pratibha Stevenson Protein [Mass/Vol] 8.0 g/dL Normal 6.4-8.2 [facility] Comment on above: Performed By: #### L ACT #### [facility] [address] [address] [address] Pratibha Stevenson Sodium [Moles/Vol] 138 mmol/L Normal 136-145 [facility] Comment on above: Performed By: #### L ACT #### [facility] [address] [address] [address] Pratibha Stevenson Urea nitrogen [Mass/Vol] 13.0 mg/dL Normal 7.0-18.0 [facility] Comment on above: Performed By: #### L ACT #### [facility] [address] [place] [address] Dr. Pratibha Stevenson Urea nitrogen/Creatinine [Mass ratio] 9.1 mg/mg Normal [facility] Comment on above: Performed By: #### L ACT #### [facility] [address] [place] [address] Dr. Pratibha Stevenson URINE MICROSCOPIC ONLYon BACTERIA NONE SEEN Normal NONE SEEN [facility] Comment on above: Performed By: #### C BC #### [facility] [address] [place] [address] Dr. Pratibha Stevenson Bacteria identified Cx Nom (U) NOT INDICATED Normal [facility] Comment on above: Performed By: #### C BC #### [facility] [address] [place] [address] Dr. Pratibha Stevenson CAST NONE SEEN Normal NONE SEEN The [facility] Comment on above: Performed By: #### C BC #### [facility] [address] [place] [address] Dr. Pratibha Stevenson Crystals LM Nom (Urine sed) NONE SEEN Normal NONE SEEN [facility] Comment on above: Performed By: #### C BC #### [facility] [address] [place] [address] Dr. Pratibha Stevenson Epithelial cells LM Ql (Urine sed) FEW Abnormal NONE SEEN /RARE The [facility] Comment on above: Performed By: #### C BC #### [facility] [address] [place] [address] Dr. Pratibha Stevenson MUCOUS TRACE Abnormal NONE SEEN The [facility] Comment on above: Performed By: #### C BC #### [facility] [address] [place] [address] Dr. Pratibha Stevenson RBC (U) [#/Vol] /uL Abnormal 0-2 [facility] Comment on above: Performed By: #### C BC #### [facility] [address] [place] [address] Dr. Pratibha Stevenson WBC 2-5 Abnormal NONE SEEN The [facility] Comment on above: Performed By: #### C BC #### [facility] [address] [place] [address] Dr. Pratibha Stevenson XR CHEST 1 Von [...] RAMO ZEPEDA Date: 2022-05-08 17:40 Normal The [facility] CBC AUTO DIFFon 03-23-2022 BASO # 0.1 103/ul Normal 0.0-0.1 The [facility] Comment on above: Performed By: #### C BC #### [facility] [address] [place] [address] Dr. Partibha Stevenson Basophils/100 WBC (Bld) 0.9 % Normal 0.2-2.0 [facility] Comment on above: Performed By: #### C BC #### [facility] [address] [place] [address] Dr. Pratibha Stevenson EO # 0.1 103/ul Normal 0.0-0.7 [facility] Comment on above: Performed By: #### C BC #### [facility] [address] [place] [address] Dr. Pratibha Stevenson Eosinophils/100 WBC (Bld) 1.7 % Normal 0.9-7.0 [facility] Comment on above: Performed By: #### C BC #### [facility] [address] [place] [address] Dr. Pratibha Stevenson Erythrocyte distribution width (RBC) [Ratio] 12.3 % Normal 11.0-15.0 [facility] Comment on above: Performed By: #### C BC #### [facility] [address] [place] [address] Dr. Pratibha Stevenson Hematocrit (Bld) [Volume fraction] 47.2 % Normal 42.0-54.0 [facility] Comment on above: Performed By: #### C BC #### [facility] [address] [place] [address] Dr. Pratibha Stevenson Hemoglobin (Bld) [Mass/Vol] 16.0 g/dL Normal 14.0-18.0 [facility] Comment on above: Performed By: #### C BC #### [facility] [address] [place] [address] Dr. Pratibha Stevenson IG # 0.03 10e3/ul Normal 0.00-0.03 [facility] Comment on above: Performed By: #### C BC #### [facility] [address] [place] [address] Dr. Pratibha Stevenson IG % 0.4 % Normal 0.0-0.5 [facility] Comment on above: Performed By: #### C BC #### [facility] [address] [place] [address] Dr. Pratibha Stevenson LYMPH # 2.5 103/ul Normal 1.2-3.8 [facility] Comment on above: Performed By: #### C BC #### [facility] [address] [place] [address] Dr. Pratibha Stevenson Lymphocytes/100 WBC (Bld) 30.4 % Normal 20.5-60.0 [facility] Comment on above: Performed By: #### C BC #### [facility] [address] [place] [address] Dr. Pratibha Stevenson MANUAL DIFF REQ NO Normal [facility] Comment on above: Performed By: #### C BC #### [facility] [address] [place] [address] Dr. Pratibha Stevenson MCH (RBC) [Entitic mass] 30.9 pg Normal 25.9-34.0 [facility] Comment on above: Performed By: #### C BC #### [facility] [address] [place] [address] Dr. Pratibha Stevenson MCHC (RBC) [Mass/Vol] 33.9 g/dL Normal 29.9-35.2 [facility] Comment on above: Performed By: #### C BC #### [facility] [address] [place] [address] Dr. Pratibha Stevenson MCV (RBC) [Entitic vol] 91.3 fL Normal 80.0-94.0 [facility] Comment on above: Performed By: #### C BC #### [facility] [address] [place] [address] Dr. Pratibha Stevenson MONO # 0.6 103/ul Normal 0.3-0.8 [facility] Comment on above: Performed By: #### C BC #### [facility] [address] [place] [address] Dr. Pratibha Stevenson Monocytes/100 WBC (Bld) 7.6 % Normal 1.7-12.0 [facility] Comment on above: Performed By: #### C BC #### [facility] [address] [place] [address] Dr. Pratibha Stevenson NEUT # 4.8 103/ul Normal 1.4-6.5 [facility] Comment on above: Performed By: #### C BC #### [facility] [address] [place] [address] Dr. Pratibha Stevenson Neutrophils/100 WBC (Bld) 59.0 % Normal 43.0-75.0 [facility] Comment on above: Performed By: #### C BC #### [facility] [address] [place] [address] Dr. Pratibha Stevenson Platelet mean volume (Bld) [Entitic vol] 10.2 fL Normal 9.5-13.5 [facility] Comment on above: Performed By: #### C BC #### [facility] [address] [place], [place] [address] Dr. Pratibha Stevenson PLT 258 103/ul Normal 150-450 [facility] Comment on above: Performed By: #### C BC #### [facility] [address] [place], [place] [address] Dr. Pratibha Stevenson RBC 5.17 106/ul Normal 4.70-6.10 [facility] Comment on above: Performed By: #### C BC #### [facility] [address] [place], [place] [address] Dr. Pratibha Stevenson WBC 8.1 103/ul Normal 4.0-11.0 [facility] Comment on above: Performed By: #### C BC #### [facility] [address] [place], [place] [address] ABD/PELVIS WO CONon [...] SHARON GODINEZ Date: 2022-03-22 23:40 Normal [facility] PROF 14(COMP METB)on 022 Albumin [Mass/Vol] 4.2 g/dL Normal 3.4-5.0 [facility] Comment on above: Performed By: #### L ACT #### [facility] [address] [place] [address] [address] Pratibha Stevenson Albumin/Globulin [Mass ratio] 1.2 {ratio} Normal [facility] Comment on above: Performed By: #### L ACT #### [facility] [address] [place] [address] [address] Pratibha Stevenson ALP [Catalytic activity/Vol] 84 U/L Normal 46-116 [facility] Comment on above: Performed By: #### L ACT #### [facility] [address] [place] [address] Dr. Pratibha Stevenson ALT [Catalytic activity/Vol] 32 U/L Normal 16-63 [facility] Comment on above: Performed By: #### L ACT #### [facility] [address] [place] [address] [address] Pratibha Stevenson Anion gap [Moles/Vol] 10.6 mmol/L Normal [facility] Comment on above: Performed By: #### L ACT #### [facility] [address] [place] [address] Dr. Pratibha Stevenson AST [Catalytic activity/Vol] 18 U/L Normal 15-37 [facility] Comment on above: Performed By: #### L ACT #### [facility] [address] [place] [address] [address] Pratibha Stevenson Bilirubin [Mass/Vol] 0.4 mg/dL Normal 0.2-1.0 [facility] Comment on above: Performed By: #### L ACT #### [facility] [address] [place], [place] [id number] Dr. Pratibha Stevenson Calcium [Mass/Vol] 9.8 mg/dL Normal 8.5-10.1 [facility] Comment on above: Performed By: #### L ACT #### [facility] [address] [place] [address] Dr. Pratibha Stevenson Chloride [Moles/Vol] 103 mmol/L Normal 98-107 [facility] Comment on above: Performed By: #### L ACT #### [facility] [address] [place] [address] [address] Pratibha Stevenson CO2 [Moles/Vol] 28.2 mmol/L Normal 21.0-32.0 [facility] Comment on above: Performed By: #### L ACT #### [facility] [address] [place] [address] [address] Pratibha Stevenson Creatinine [Mass/Vol] 1.24 mg/dL Normal 0.70-1.30 [facility] Comment on above: Performed By: #### L ACT #### [facility] [address] [place] [address] Dr. Pratibha Stevenson EGFR-AF GUYANESE >60 Normal >=60 [facility] Comment on above: Performed By: #### L ACT #### [facility] [address] [place] [address] Dr. Pratibha Stevenson EGFR-NON AF GUYANESE >60 Normal >=60 [facility] Comment on above: Performed By: #### L ACT #### [facility] [address] [place] [address] Dr. Pratibha Stevenson Globulin (S) [Mass/Vol] 3.6 g/dL Normal [facility] Comment on above: Performed By: #### L ACT #### [facility] [address] [place] [address] Dr. Pratibha Stevenson Glucose [Mass/Vol] 102 mg/dL Normal 74-106 [facility] Comment on above: Performed By: #### L ACT #### [facility] [address] [place] [address] [address] Pratibha Stevenson Potassium [Moles/Vol] 3.8 mmol/L Normal 3.5-5.1 [facility] Comment on above: Performed By: #### L ACT #### [facility] [address] [place] [address] Dr. Pratibha Stevenson Protein [Mass/Vol] 7.8 g/dL Normal 6.4-8.2 [facility] Comment on above: Performed By: #### L ACT #### [facility] [address] [place], [place] [address] Dr. Pratibha Stevenson Sodium [Moles/Vol] 138 mmol/L Normal 136-145 [facility] Comment on above: Performed By: #### L ACT #### [facility] [address] [place], [place] [address] Dr. Pratibha Stevenson Urea nitrogen [Mass/Vol] 18.0 mg/dL Normal 7.0-18.0 [facility] Comment on above: Performed By: #### L ACT #### [facility] [address] [place] [address] [address] Pratibha Stevenson Urea nitrogen/Creatinine [Mass ratio] 14.5 mg/mg Normal [facility] Comment on above: Performed By: #### L ACT #### [facility] [address] [place] [address] [address] Pratibha Stevenson Vital Signs Date Time Vital Sign Value Performing Clinician Janice daniels 03-26-2024 09:05-0500 Body height 175.3 cm Armando Meek PA-C Work Phone: [facility] 03-26-2024 09:05-0500 Body mass index (BMI) [Ratio] 32.22 kg/m2 Armando MCCORMICKC Work Phone: [facility] 03-26-2024 09:05-0500 Body weight 98.97 kg Armando Meek PA-C Work Phone: [facility] 03-26-2024 09:05-0500 Diastolic blood pressure 66 mm[Hg] Armando MCCORMICKC Work Phone: [facility] 03-26-2024 09:05-0500 Heart rate 71 /min Armando Meek PA-C Work Phone: [facility] 03-26-2024 09:05-0500 Systolic blood pressure 124 mm[Hg] Arm[facility]ek PA-C [facility] 03-02-2024 11:02-0400 Body temperature 98.8 [degF] Kym Vidal MD Work Phone: [facility] [employer] 03-02-2024 11:02-0400 Diastolic blood pressure 72 mm[Hg] Kym Vidal MD Work Phone: [facility] [employer] 03-02-2024 11:02-0400 Heart rate 83 /min Kym Vidal MD Work Phone: [facility] [employer] 03-02-2024 11:02-0400 Respiratory rate 16 /min Kym Vidal MD Work Phone: [facility] [employer] 03-02-2024 11:02-0400 SaO2% (BldA) [Mass fraction] 98 % Kym Vidal MD Work Phone: [facility] 03-02-2024 11:02-0400 Systolic blood pressure 120 mm[Hg] [facility] 03-01-2024 03:44-0400 Body mass index (BMI) [Ratio] 31.82 kg/m2 Kym Vidal MD Work Phone: [facility] [employer] 03-01-2024 03:44-0400 Body weight 97.75 kg Kym Vidal MD Work Phone: [facility] [employer] 02-27-2024 00:30-0400 Body height 175.3 cm Kym Vidal MD [facility] 07-21-2022 08:57-0400 Blood Pressure Location Shirley Jollylala [facility] 07-21-2022 08:57-0400 Diastolic blood pressure 69 mm[Hg] Shirley Lue [facility] 07-21-2022 08:57-0400 Heart rate 74 /min Shirley Lue [facility] 07-21-2022 08:57-0400 Systolic blood pressure 133 mm[Hg] Shirley Lue [facility] 07-13-2022 09:17-0400 Blood Pressure Location Shirley Lue [facility] 07-13-2022 09:17-0400 Diastolic blood pressure 68 mm[Hg] Shirley Lue [facility] 07-13-2022 09:17-0400 Heart rate 73 /min Shirley Lue [facility] 07-13-2022 09:17-0400 Systolic blood pressure 124 mm[Hg] Shirley Lue [facility] Encounters Encounter Date Encounter Type Care Provider Facility Start: 03-26-2024 End: 03-26-2024 ambulatory ARMANDO MEEK [facility] Start: 03-26-2024 End: 03-26-2024 Office outpatient new 60 minutes Armando COREY-Irene [facility] Comment on above: Seizure (CMS-HCC) (P rimary Dx); Migraine without aura and without status migrainosus, not intractable; Status migrainosus; Recurrent syncope; Pancytopenia (CMS-HCC); Functional tremor Start: 03-25-2024 End: 03-25-2024 Telephone encounter [facility] Comment on above: REFERRAL Start: 02-27-2024 End: 03-02-2024 Evaluation and management of inpatient Kym Vidal MD Work Phone: [facility] Comment on above: Pancytopenia (HCC) ( Primary Dx); Hip pain, unspecified laterality Start: 02-26-2024 End: 02-26-2024 Emergency department patient [facility] Start: 06-14-2023 End: 06-14-2023 amb[facility] Start: 06-14-2023 End: 06-14-2023 Subsequent hospital visit by physician Manjit Waller [facility] Comment on above: Arrived Start: 06-12-2023 End: 06-12-2023 ambulatory [facility] Start: 06-12-2023 End: 06-12-2023 Subsequent hospital visit by physician Manjit Waller [facility] Comment on above: Arrived Start: 06-09-2023 End: 06-09-2023 ambulatory [facility] Start: 06-09-2023 End: 06-09-2023 Subsequent hospital visit by physician Flash Goodwin PTA [facility] Comment on above: Arrived Start: 06-05-2023 End: 06-05-2023 ambulatory [facility] Start: 05-31-2023 End: 05-31-2023 ambulatory [facility] Start: 05-29-2023 End: 05-29-2023 ambulatory [facility] Start: 05-26-2023 End: 05-26-2023 ambulatory [facility] Start: 05-22-2023 End: 05-22-2023 ambulatory [facility] Start: 05-17-2023 End: 05-17-2023 ambulatory [facility] Start: 03-13-2023 End: 03-13-2023 ambulatory [facility] Start: 08-11-2022 End: 08-11-[address] LATRICIA GARCIA . Facility:[facility] Start: 07-22-2022 End: 07-23-[address] LATRICIA GARCIA . Facility:[facility] Start: 07-21-2022 End: 07-22-2022 ambulatory Shirley Murrell Facility:[facility] Start: 07-21-2022 End: 07-21-2022 Patient encounter procedure Shirley Murrell [facility] Start: 07-20-2022 End: 07-20-[address] LATRICIA GARCIA . Facility: Start: 07-13-2022 End: 07-14-2022 ambulatory Shirley Murrell Facility:[facility] Start: 07-13-2022 End: 07-13-2022 Patient encounter procedure Shirley DonovanJoselin Handy [facility] Ernesto Start: 07-06-2022 End: 07-07-2022 ambulatory SHIRLEY Zion JOLLYLala . Facility: Start: 05-23-2022 End: 05-24-2022 ambulatory Shirley Murrell Facility:[facility] Start: 05-23-2022 End: 05-23-2022 Patient encounter procedure Shirley MJoselin Handy [facility] Start: 05-11-2022 End: 05-12-2022 ambulatory Shirley Murrell Facility:[id number] Start: 05-08-2022 End: 05-12-[address] LATRICIA GARCIA . Facility: Start: 03-23-2022 End: 03-23-[address] LATRICIA GARCIA . Facility: Procedures Date Procedure Procedure Detail Performing Clinician Start: 03-26-2024 Adult depression screening assessment Armando Meek PA-C Work Phone: Start: 03-02-2024 Rhythm ecg 1-3 leads w/interpretation & report Unknown Provider Result Start: 03-02-2024 Anion gap [Moles/Vol] Maureen degroot DO Work Phone: Start: 03-02-2024 Basic metabolic panel calcium total Maureen Hampton DO Work Phone: Start: 03-02-2024 GLOMERULAR FILTRATION RATE, ESTIMATED Maureen Hampton DO Work Phone: Start: 03-02-2024 SCAN OF BLOOD SMEAR Jenny Alvarez [employer] - [employer] Work Phone: Start: 03-01-2024 Rhythm ecg 1-3 leads w/interpretation & report Unknown Provider Result Start: 03-01-2024 MYELOID MALIGNANCIES MUTATION PANEL Ruth Wyman MD Work Phone: Start: 03-01-2024 Diagnostic bone marrow biopsies Jenny Alvarez [facility] Work Phone: Start: 03-01-2024 Rhythm ecg 1-3 leads w/interpretation & report Unknown Provider Result Start: 03-01-2024 Blood count complete auto&auto difrntl wbc Jenny Alvarez [facility] Work Phone: Start: 03-01-2024 SCAN OF BLOOD SMEAR Jenny Alvarez [facility] Work Phone: Start: 02-29-2024 End: 02-29-2024 Ecg routine ecg w/least 12 lds i&r only Ruth Wyman MD Work Phone: Start: 02-29-2024 Blood smear peripheral interp phys w/writ report Jenny Alvarez [facility] Work Phone: Start: 02-29-2024 DIAGNOSTIC QUAL BCR-ABL1 ASSAY W REFLEX TO P190 OR P210 QUANT ASSAYS Jenny Alvarez [facility] Work Phone: Start: 02-29-2024 Calcium ionized Maureen Duranuyen D O Work Phone: Start: 02-29-2024 Anion [...] VIRUS (EBV) ANTIBODY PANEL I Yasmin Ambrosio [employer] - [employer] Work Phone: Start: 02-28-2024 Mri brain brain stem w/o w/contrast material Jenny Gunter [employer] MECH[employer]IC - [employer]ER Work Phone: Start: 02-28-2024 End: 02-28-2024 Ecg [...] Phone: Start: 02-28-2024 Anion gap [Moles/Vol] Jenny Gunter [employer] MECH[employer]IC - [employer] Work Phone: Start: 02-28-2024 GLOMERULAR FILTRATION RATE, ESTIMATED Jenny Gunter [employer] MECH[employer]IC - [employer]ER Work Phone: Start: 02-28-2024 Lactate dehydrogenase ldh Ruth Wyman MD Work Phone: Start: 02-27-2024 VITAMIN B12 & FOLATE Yasmin Ambrosio [employer] MECH[employer]IC - [employer]ER Work Phone: Start: 02-27-2024 EEG 24 HOUR AMBULATORY Jenny Gunter [employer] MECH[employer]IC - [employer]ER Work Phone: Start: 02-27-2024 Electroencephalogram w/rec awake&asleep Jenny Gunter [employer] MECH[employer]IC - [employer] OFFICER Work Phone: Start: 02-27-2024 End: 02-27-2024 C-reactive protein Barak Colon MD Work Phone: Start: 02-27-2024 End: 02-27-2024 Calcium ionized Jenny Gunter AP RN - [employer] Work Phone: Start: 02-27-2024 REFERENCE LAB SAMPLE Jenny Gunter A PRN - [employer]ER Work Phone: Start: 02-27-2024 Urnls dip stick/tablet reagent auto microscopy Jenny Gunter [employer]ER MECH[employer]IC - [employer] OFF[employer]ER Work Phone: Start: 02-27-2024 End: 02-27-2024 Rhythm ecg 1-3 leads w/interpretation & report Unknown Provider Result Start: 05-23-2022 Cystoscopic removal of ureteric stent Shirley Murrell Start: 05-08-2022 Cystoscopic laser lithotripsy of ureteric calculus Shirley Lue Plan of Treatment Date Care Activity Detail Author Start: 03-26-2025 Adult BMI Screening Adult BMI Screening [facility] Start: 03-26-2025 Depression Screening Depression Screening [facility] Start: 04-19-2024 End: 04-19-2024 Patient encounter procedure 04/19/2024 9:00 AM EST Office Visit [facility] [address] [place] [address] Armando Meek, ADRIANNA [address] [place] [id number] [facility] Start: 04-08-2024 End: 04-08-2024 Patient encounter procedure 04/08/2024 10:30 AM EST Office Visit [facility] [address] [place] [address] Lisa Ceballos MD [address] [place], [place] [id number] [facility] Start: 04-01-2024 End: 03-02-2025 Vitamin B12 & Folate Vitamin B12 & Folate Lab Routine Pancytopenia (HCC) Expected: 04/01/2024 (Approximate), Expires: 03/02/2025 [facility] Comment on above: Expected: 04/01/2024 (Approximate), Expi res: 03/02/2025 Start: 03-26-2024 End: 03-26-2024 Patient encounter procedure 03/26/2024 9:00 AM EST Office Visit [facility] [address] [facility] [address] [place] [address] Armando Meek PA-C [address] [facility] [place] [address] [facility] Start: 03-02-2024 End: 03-02-2025 CBC panel - Blood by Automated count CBC Lab Routine Pancytopenia (HCC) Expected: 03/02/2024 (Approximate), Expires: 03/02/2025 [facility] Comment on above: Expected: 03/02/2024 (Approximate), Expi res: 03/02/2025 Start: 12-31-2023 COVID-19 Vaccine ( season) COVID-19 Vaccine ( season) [facility] Start: 12-31-2023 Influenza vaccination Influenza Vaccine [facility] Start: 11-30-2023 Influenza vaccination Flu vaccine (#1) [facility] Start: 06-26-2023 End: 06-26-2023 Patient encounter procedure 06/26/2023 2:30 PM EST Appointment [facility] [address] [place] [address] [phone] Manjit Waller [facility] Start: 06-23-2023 End: 06-23-2023 Patient encounter procedure 06/23/2023 1:45 PM EST Appointment [facility] [address] [place] [address] [phone] Flash Goodwin PTA [facility] Start: 06-19-2023 End: 06-19-2023 Patient encounter procedure 06/19/2023 3:15 PM EST Appointment [facility] [address] [place] [address] Manjit Waller [facility] Start: 06-14-2023 End: 06-14-2023 Patient encounter procedure 06/14/2023 3:30 PM EST Appointment [facility] [address] [place] [phone] Manjit Waller [facility] Start: 06-12-2023 End: 06-12-2023 Patient encounter procedure 06/12/2023 3:15 PM EST Appointment [facility] [address] [place] [phone] Manjit Waller [facility] Start: 11-29-2022 Influenza vaccination Flu vaccine (#1) [facility] Start: 08-18-2011 DTaP,Tdap and Td Vaccines (1 - Tdap) DTaP,Tdap and Td Vaccines (1 - Tdap) [facility] Start: 2010 Adult BMI Follow Up Plan Adult BMI Follow Up Plan [facility] Start: 2010 Adult BMI Screening Adult BMI Screening [facility] Start: 2010 Hepatitis C screening Hepatitis C screen [facility] Start: 08-18-2007 HIV screening HIV screen [facility] Start: 2005 Varicella vaccine (1 of 2 - 13+ 2-dose series) Varicella vaccine (1 of 2 - 13+ 2-dose series) [facility] Start: 2004 Depression Screen Depression Screen [facility] Start: 2004 Depression Screening Depression Screening [facility] Start: 2004 Tobacco Screening Tobacco Screening [facility] Start: 08-18-2003 DTaP,Tdap and Td Vaccines (6 - Tdap) DTaP,Tdap and Td Vaccines (6 - Tdap) [facility] Start: 08-18-2003 DTaP/Tdap/Td vaccine (6 - Tdap) DTaP/Tdap/Td vaccine (6 - Tdap) [facility] Start: 1998 Pneumococcal 0-64 years Vaccine (1 of 2 - PCV) Pneumococcal 0-64 years Vaccine (1 of 2 - PCV) [facility] Start: 1993 Varicella vaccine (1 of 2 - 2-dose childhood series) Varicella vaccine (1 of 2 - 2-dose childhood series) [facility] Start: 02-16-1993 COVID-19 Vaccine (#1) COVID-19 Vaccine (#1) [facility] End: 03-03-2024 CBC W Auto Differential panel - Blood CBC with Auto Differential Lab Routine Daily for 3 Days starting 03/01/2024 until 03/03/2024, 2 completed [facility] Comment on above: Daily for 3 Days starting 03/01/2024 unt il 03/03/2024, 2 completed End: 03-01-2024 Chromosome analysis, bone marrow [facility] Comment on above: Once for 1 Occurrences starting 03/01/20 until 03/01/2024 Diagnostic Qual BCR- ABL1 Assay w Reflex to p190 or p210 Quant Assaysantitative Assays Diagnostic Qual BCR-ABL1 Assay w Reflex to p190 or p210 Quant Assaysantitative Assays Lab Routine 02/29/2024 5:30 PM EDT [facility] End: 03-26-2025 EEG EEG Neurology Routine Seizure ([facility]-HCC) Recurrent syncope 1 Occurrences starting 03/26/2024 until 03/26/2025 [facility] Work Phone: Comment on above: 1 Occurrences starting 03/26/2024 until 03/26/2025 End: 02-29-2024 Flow Cytometry Leukemia/Lymphoma, Bone Marrow Flow Cytometry Leukemia/Lymphoma, Bone Marrow Lab Routine One Time for 1 Occurrences starting 02/29/2024 until 02/29/2024 [facility] Comment on above: One Time for 1 Occurrences starting 01/31 until 02/29/2024 End: 03-01-2024 Flow Cytometry Leukemia/Lymphoma, Bone Marrow [facility] Comment on above: Once for 1 Occurrences starting 03/01/20 until 03/01/2024 End: 03-02-2024 Leukemia / lymphoma phenotype [facility] Work Phone: Comment on above: One Time for 1 Occurrences starting 06/2023 until 03/02/2024 End: 03-01-2024 Myeloid Malignancies Mutation Panel [facility] Comment on above: One Time for 1 Occurrences starting 05/2023 until 03/01/2024 Oxygen therapy [[facility] Data Set] Initiate Oxygen Therapy Protocol Respiratory Care Routine As Needed until discontinued starting 02/27/2024 [facility] Work Phone: Comment on above: As Needed until discontinued starting Immunizations Immunization Date Immunization Notes Care Provider Khushbu thao 12-26-1997 DTaP, unspecified formulation Shirley Lue [facility] 12-26-1997 measles, mumps and rubella virus vaccine Shirley Lue [facility] 01-10-1994 DTaP, unspecified formulation Shirley Lue [facility] 01-10-1994 hepatitis B vaccine, pediatric or pediatric/adolescent dosage Shirley Lue [facility] 01-10-1994 Hib, unspecified formulation Shirley Lue [facility]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 Genoveva bowers Referred To Contact Neurology Diagnoses Seizure ([facility]) Latricia Garcia MD [address] [place] [address] Phone: tel:[phone] fax: [facility] [address] [place] [address] Phone: tel: fax: Referral ID Status Reason Start Date Expiration Date Visits Requested Visits Authorized [id number] Pending Review Specialty Services Required 4 03/20/2025 1 1 Ordered Prescriptions (unrec ognized section [...] Rizvi MD)2100 (Automatically Held - Provider: Chapis Riziv MD) 0900 (Automatically Held - Provider: Chapis [...] RN)1958 (Given - Provider: Sol Landis RN) 756 (Given - Provider: Joanna Adame RN)2005 (Given - Provider: Rebecca Humphreys RN) 0759 (Given - Provider: Daphne Alonzo RN)2100 (Due) PRN Medication Order 02/29/2024 [...] 0930 (See Alternative - Provider: Joanna Adame RN)1616 (See Alternative - Provider: Joanna Adame RN)2215 [...] RN) 0930 (Given - Provider: Joanna Adame RN)1616 (Given - Provider: Joanna Adame RN)2215 (Given [...] Neris Duff RN)1024 (Given - Provider: Joanna Adame, MARQUISE)1633 (Given - Provider: Joanna Adame RN) 0004 (Given - Provider: Sol Landis RN)0630 (Given - Provider: Nikki Morris, MARQUISE)1301 (Given - Provider: Joanna Adame, MARQUISE)2006 (Given - Provider: Rebecca Humphreys RN) 0210 (Canceled Entry - Provider: Rebecca Humphreys RN)0256 (Given - Provider: Rebecca Humphreys RN)1116 (Given - Provider: Daphne Alonzo, MARQUISE) LORazepam (ATIVAN) injection 4 mg 4 mg, [...] CrCl less than 30ml/min, On hold since [facility] 02/29/2024 at 1438 until manually unheld 1438 [...] RN) 0018 (See Alternative - Provider: Rebecca Humphreys, RN)0351 (See Alternative - Provider: Rebecca Humphreys, RN)1116 (See Alternative - Provider: Daphne Alonzo [...] Humphreys RN)1116 (Given - Provider: Daphne Alonzo, RN) phenol 1.4 % mouth spray Mouth/Throat, 4 TIMES DAILY PRN, Starting on 03/02/24 at 0930, Until Discontinued, Pain 1116 (Given [...] 8 HOURS PRN, Starting on Mon02/27/24 at 003, Until Discontinued, Nausea, Vomiting Or ondansetron (ZOFRAN) injection 4 mgJump to med 4 mg, IntraVENous, EVERY 6 HOURS PRN, Starting on Mon02/27/24 at 003, Until Discontinued, Nausea, Vomiting, Administer if oral [...] BE BASED ON THE PRIMARY CLINICAL RECORDS. [employer] provides no warranty or guarantee of the accuracy or completeness of information in this document.
[2024-04-01 23:42] VITALS: PULSE 95
[2024-04-01 23:54] VITALS: PULSE 115
[2024-04-02] VITALS (11 sets, daily range): BP systolic 97–107; BP diastolic 61–65; PULSE 84–101
[2024-04-02] MEDS: 0.9 % SODIUM CHLORIDE 1,000 ML 1000 ML IV (00:02)
[2024-04-02] MEDS: PROCHLORPERAZINE 10 MG/2 ML VIAL IV (00:04)
[2024-04-02] MEDS: DIPHENHYDRAMINE HCL 50 MG/ML VIAL IV (00:04)
[2024-04-02] MEDS: ACETAMINOPHEN 325 MG TABLET 650 MG PO (00:04)
[2024-04-02 00:33] LABS: Anion Gap 14.9; BUN Creatinine Ratio 11.7; Calcium 9.3 mg/dL (8.5-10.1); Carbon Dioxide 23.3 mmol/L (21.0-32.0); Chloride 104 mmol/L (98-107); Estimated GFR (African America >60 (>=60 mL/min/1.73m^2); Estimated GFR (Non-African Ame 57 (>=60 mL/min/1.73m^2); Glucose 235 mg/dL (74-106); Potassium 4.2 mmol/L (3.5-5.1); Sodium 138 mmol/L (136-145)
--- NOTE | 2024-04-02 00:36 | PC.NURSE ---
Watched pt perform 30 seconds of tonic/clonic movements. About 60 seconds later, he states, I just had a seizure . A & O x 4. Memory fully intact. Remains continent of bowel and bladder. Pt also states that he's been passing out many times since he's been here. Weir Fisher did not witness any syncopal episodes. He would fall asleep for a few seconds and wake back up fully A & O x 4 and talkative. He remains A & O x 4 and appropriate.
[2024-04-02 00:53] LABS: Lactate/Lactic Acid 1.9 mmol/L (0.4-2.0)
[2024-04-02] MEDS: KETOROLAC TROMETHAMINE 30 MG/ML VIAL 15 MG IVP (00:57)
--- NOTE | 2024-04-02 01:13 | PC.NURSE ---
Pt is resting quietly with eyes closed. No c/o voiced. Respirations are regular and non-labored.
== END 2024-04-02 01:37 | disposition home or self-care (01) ==
PROVIDERS: Emergency Provider Emergency Medicine; PCP Family Medicine
DX: R51.9 Headache, unspecified (principal); R56.9 Unspecified convulsions; F17.200 Nicotine dependence, unspecified, uncomplicated
CPT/HCPCS: 36415; 80048; 83605; 83735; 93005; 96374; 96375; 99285; J0780; J1200; J1885

== ENCOUNTER 2024-04-08 09:18 | Outpatient (REF) | payer MEDICAID, SELFPAY ==
[2024-04-09 10:11] LABS: Internal Control Within Normal Limits; Occult Blood Negative
== END 2024-04-08 09:19 | disposition home or self-care (01) ==
LOC: LAB 09:18
PROVIDERS: PCP Family Medicine; Visit Provider Family Medicine
DX: D64.9 Anemia, unspecified (principal)
CPT/HCPCS: G0328

== ENCOUNTER 2024-04-10 00:30 | Emergency (ER) | payer MEDICAID, SELFPAY ==
[2024-04-10] VITALS (28 sets, daily range): BP systolic 113–155; BP diastolic 66–83; PULSE 56–83; TEMP 36.6; O2SAT 94–99; BMI 32.3
--- OUTSIDE RECORDS SUMMARY | 2024-04-10 00:41 | XMS_ITS | CCD ---
Author Organization [facility] Care Team Providers Care Wedding Planner Name Role Phone Latricia Garcia Primary Care [...] RAMIREZ Attending Unavailable PANDA .LEORA Consulting UnavailMarcus Olivera, DR ROME Primary Care Unavailable SHANNON, DR MADDIE Forrester Admitting Unavailable DR MADDIE ORTEGA Attending Unavailable DR MADDIE ORTEGA Consulting Unavailable SHARON GODINEZ Consulting Unavailable Latricia Garcia MD Primary Care Provider [phone] MICHELLE, JON E Referring Unavailable HOY, LATRICIA [...] Admitting Unavailable RUTH WYMAN Attending Unavailable AMY, DOLORES Referring Unavailable RONDA HAWLEY Consulting Unavaila ble HOY, LATRICIA M Primary Care Unavailable Latricia Garcia MD Primary Care Provider [phone] ARMANDO MEEK Attending Unavailable HOY, LATRICIA M Referring Unavailable HOY, LATRICIA M Primary Care Unavailable Allergies Allergy Classification Reported Allergen(s) Allergy Type Date of Onset Reaction(s) Facility (13 sources) Naproxen; Translations: [naproxen] Drug Allergy 3 Unknown (qualifier value), Nausea And Vomiting [facility] (1 source) Naproxen Drug Allergy [facility] Repository Medications Current Medications Medication Drug Class(es) Dates Sig (Normalized) Sig (Original) Acetaminophen (1 source) Start: 02-27-2024 acetaminophen (TYLENOL) tablet 650 mg acetaminophen 325 mg / HYDROcodone bitartrate 5 mg oral tablet (5 sources) Opioid Agonist Start: 03-02-2024 End: 03-05-2024 [...] Active Start: 05-12-20[address] [facility] every twenty-four hours Keflex 500 mg Cap 500 mg = 1 cap(s), Oral, q24hr, Take 1 pill the day before the procedure and 1 pill after the procedure., # 2 cap(s), Refills(s) 0, Pharmacy: [id number] Start Date: 05/12/22 Status: Ordered 0.4 [...] to any invasive procedure., On hold since [facility] 02/29/2024 at 1050 until manually unheld ferrous sulfate 325 mg oral tablet (6 sources) Start: 03-02-2024 take 1 tablet by [...] disposal. ondansetron 4 mg disintegrating oral tablet (6 sources) Serotonin-3 Receptor Antagonist Start: 01-31-2024 ondansetron [...] by mouth nightly Active polyethylene glycol 3350 65588 mg powder for oral solution (2 sources) Osmotic Laxative Start: 02-27-2024 End: 05-03-2024 take 1 dose by mouth once daily as needed for constipation polyethylene glycol (GLYCOLAX) 17 g packet Take 1 packet by mouth daily as needed for Constipation 527 g 1 03/02/2024 05/03/2024 Active Potassium Chloride (1 source) Start: 02-27-2024 potassium chloride (KLOR-CON M) extended release tablet 40 mEq predniSONE 10 mg oral tablet (3 sources) Start: 04-03-2024 predniSONE (DELTASONE) 10 mg tablet Indications: Status migrainosus Take 4 tabs (40 mg) daily for 2 days, then 3 tabs (30 mg) daily for 2 days, then 2 tabs (20 mg) daily for 2 days, then 1 tab daily for 1 day, then Discontinue 19 tablet 04/03/2024 Active Start: 04-02-2024 End: 04-03-2024 predniSONE (DELTASONE) 10 mg tablet Indications: Status migrainosus Take 4 tabs (40 mg) daily for 2 days, then 3 tabs (30 mg) daily for 2 days, then 2 tabs (20 mg) daily for 2 days, then 1 tab daily for 1 day, then Discontinue 19 tablet 04/02/2024 04/03/2024 Discontinued (Reorder) rimegepant 75 mg disintegrating oral tablet (4 sources) Start: 03-26-2024 rimegepant (NURTEC ODT) 75 mg tablet,disintegrating Indications: Migraine without aura and without status migrainosus, not intractable Dissolve 1 tablet on tongue as needed (migraine). Maximum of 1 dose per 24 hours 8 tablet 5 03/26/2024 Active tamsulosin hydrochloride 0.4 mg oral capsule (1 source) alpha-Adrene rgic Mic Start: 07-21-2022 take 1 capsule by mouth once daily tamsulosin 0.4 mg Cap 0.4 mg = 1 cap(s), Oral, Daily, # 30 cap(s), Refills(s) 0, called to pharmacy (Rx) Start Date: 07/21/22 Status: Ordered topiramate 50 mg oral tablet (4 sources) Start: 03-26-2024 topiramate (TOPAMAX) 50 mg tablet Indications: Migraine without aura and without status migrainosus, not intractable , Status migrainosus Take 1 tablet (50 mg) nightly for 2 weeks, then increase to 1 tablet (50 mg) twice daily 60 tablet 5 03/26/2024 Active divalproex sodium 500 mg delayed release oral tablet (1 source) Mood Stabilizer, Anti-epilept ic Agent Start: 02-27-2024 take 1 dose by mouth twice daily 500 mg, Oral, EVERY 12 HOURS SCHEDULED (2 times per day), First dose on Mon02/27/24 at 2100, Until Discontinued, Do not crush or break., On hold since [facility] 02/29/2024 at 0851 until manually unheld Completed/Discontinued Medications [...] Onset: 07-14-2022 Episodic Calculus of urinary tract (16 sources) Ureteric stone; Translations: [Calculus of ureter] Onset: 07-06-2022 Episodic Deficiency and other anemia (6 sources) Pancytopenia; Translations: [Other pancytopenia] Onset: 02-28-2024 03-02-2024 Chronic Deficiency and other anemia (2 sources) Other pancytopenia; Translations: [Other pancytopenia] Onset: 02-28-2024 Chronic Diseases of white blood cells (1 source) Elevated white blood cell count, unspecified; Translations: [ELEVATED WHITE BLOOD CELL COUNT UNS] Onset: 07-14-2022 Chronic Epilepsy; convulsions (8 sources) Unspecified convulsions; Translations: [Seizure] Onset: 02-26-2024 02-26-2024 Episodic Fluid and electrolyte disorders (1 source) Dehydration; Translations: [DEHYDRATION] Onset: 07-14-2022 Episodic Headache; including migraine (6 sources) Migraine without aura, not refractory ; Translations: [Migraine without aura, not intractable, without status migrainosus] Onset: 03-26-2024 03-26-2024 Chronic Headache; including migraine (1 source) Headache; including migraine; Translations: [Headache, unspecified] Onset: 02-26-2024 Miscellaneous mental health disorders (3 sources) Multiple personality disorder; 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] Onset: 04-05-2024 07-13-2022 Chronic Nonspecific chest pain (1 source) Other chest pain; Translations: [OTHER CHEST PAIN] Onset: 07-22-2022 Episodic Other diseases of kidney and ureters (1 [...] initial encounter] Onset: 06-09-2023 Episodic Mood disorders (4 sources) Mood disorders Onset: 03-26-2024 03-26-2024 Osteoarthritis (3 sources) Arthritis; Translations: [Unspecified osteoarthritis, unspecified site] Onset: 04-05-2024 Resolved: 04-05-2024 07-13-2022 Chronic Residual codes; unclassified (1 source) Other specified postprocedural states; Translations: [Other specified postprocedural states] Onset: 03-13-2023 Episodic Results Test Name Value Interpretation Reference Range Facility DIAGNOSTIC QUAL BCR-ABL1 ASS AY W/ REFLEXon 03-12-2024 DIAGNOSTIC QUAL BCR-ABL1 ASSAY, RESULT Not detected Normal [facility] Comment on above: Result Comment: Ther e [...] gene is also amplified for specimen quality compliance manager and to ensure the integrity of RNA. [...] Transcripts Analytical Sensitivity Minor (e1a2) NCN = 0.79267 Major (e13a2) %IS = 0.0040 Major (e14a2) [...] developed and its performance characteristics determined by [facility]. It has not been cleared or approved by the U.S. Food and Drug Administration. This test was performed in a CLIA-certified laboratory and is intended for clinical purposes. Performed By: [facility] [address] [place] [id number] Production Aide: Sunny Roman MD, PhD CLIA Number: [id number] Performed By: #### D QBC2 #### [address] [address] DIAGNOSTIC QUAL BCR-ABL1 ASSAY, SOURCE Not Provided Normal [facility] Comment on above: Result Comment: AMEN DED on 03/12/24: Result in error was LAV Whole Blood, verified at 09:43 on 03/01/24. Performed By: #### D QBC2 #### [facility] [address] [facility] [address] CHROMOSOME ANAL. BONE MARROW on 03-11-2024 CHROMOSOME ANAL. BONE MARROW SEE BELOW Normal [facility] Comment on above: Result Comment: Lacquer [employer]er mosome Analysis, Bone Marrow See Note Normal [...] reviewed and approved by Akash Smith, PhD, ABMGG A portion of this analysis was performed at the following location(s): [facility] Site CG-NM#1 [facility] CG-NE#1 [facility] CG-FL#1 INTERPRETIVE INFORMATION: Chromosome Analysis, Bone Marrow This test was developed and its performance characteristics determined by [facility]. It has not been cleared or approved by the [place] Food and Drug Administration. This test was performed in a CLIA certified laboratory and is intended for clinical purposes. EER Chromosome Analysis Bone Marrow See Note Authorized individuals can access the [facility] Enhanced Report using the following link: [email or web address] Performed By: [facility] [address] [place] [address] Production Aide: Sunny Roman MD, PhD CLIA Number: [id number] Performed By: #### M MMP, LPBM2, CRBM2 #### [facility] [address] [place] [address] MYELOID MALIGANCIES MUTATION PANEL BY [employer] 03-08-2024 EER MYELOID MALIGNANCIES PANEL BY NGS See Note Normal [facility] Comment on above: Result Comment: Auth orized individuals can access the [facility] Enhanced Report using the following link: [email or web address] Performed By: [place] [address] Production Aide: Sunny Roman MD, PhD CLIA Number: [id number] Performed By: #### M MMP, LPBM2, CRBM2 #### [facility] [address] [place] [address] MYELOID MALIGNANCIES PANEL INTERP See Note Normal [facility] Comment on above: Result Comment: Myeloid Malignancies Mutation Panel NGS Submitted diagnosis or diagnosis under consideration for variant interpretation: Pancytopenia TIER 1: Variants of Known Clinical Significance in Hematologic Malignancies None found TIER 2: Variants of Unknown Clinical Significance in Hematologic Malignancies 1. NSD1 c.7576C>T, p.[id number] ([id number]) VAF: 49.0% This variant has not been reported in hematologic malignancies, to the best of our knowledge. 2. KMT2A c.5573G>A, p.Upl4095Nge ([id number]) VAF: 47.8% This variant has not been reported in hematologic malignancies, to the best of our knowledge. This result has been reviewed and approved by Zulay Abdi M.D. Low coverage regions: Listed below are regions where the average sequencing depth (number of times a particular nucleotide is sequenced) in at least 20% of the [id number]-pb-[id number] is less than our stringent cutoff of [...] NOTCH1; NPM1*; NRAS; NSD1; PHF6; PIGA; PPM1D; BYHE45L; PRPF8; PTPN11; RAD21; RUNX1; SAMD9; SAMD9L; SETBP1; [...] MMP, LPBM2, CRBM2 #### [facility] [address] [facility] [address] MYELOID MALIGNANCIES PANEL SPECIMEN Bone Marrow Normal [facility] Comment on above: Performed By: #### M MMP, LPBM2, CRBM2 #### [facility] [address] [facility] [place] [place] [address] MYELOID MALIGNANCY PROPOSED DIAGNOSIS Pancytopenia Normal [facility] Comment on above: Performed By: #### M MMP, LPBM2, CRBM2 #### [facility] [address] [facility] [place] [address] LEUKEMIA/LYMPHOMA PHENO BLOO Don 03-05-2024 LEUKEMIA/LYMPHOMA PHENO BLOOD SEE BELOW Normal [facility] Comment on above: Result Comment: Leuk /Lymph [...] loss of CD16 without any other abnormality) [place]:Lambda Ratio: approx. 2:1 CD4:CD8 Ratio: approx. 8:1 Viability: 58% Markers run: HLA-DR, [place], Lambda, CD2, CD3, CD4, CD5, CD7, CD8, CD10, CD11b, CD13, CD14, CD16, CD19, CD20, CD23, CD33, CD34, CD38, CD45, CD56, CD57, CD64, CD117, CD200 Num of Markers Run: 26 This result has been reviewed and approved by Kostas Miller M.D., Ph.D. 03/05/2024 INTERPRETIVE INFORMATION: Leuk/Lymph Phenotyping, Flow Cytometry This test was developed and its performance characteristics determined by [facility]. It has not been cleared or approved by the US Food and Drug Administration. This test was performed in a CLIA certified laboratory and is intended for clinical purposes. Performed By: [facility] [address] [place] [address] Production Aide: Sunny Roman MD, PhD CLIA Number: [id number] Performed By: #### C , WSR #### [facility] [address] [place] [address] LEUKEMIA/LYMPHOMA PHENO BONE MARROWon 03-03-2024 LEUKEMIA/LYMPHOMA PHENO BONE MARROW SEE BELOW Normal [facility] Comment on above: Result Comment: Leuk /Lymph [...] Viability: 82% Markers run: cKappa, cLambda, HLA-DR, [place], Lambda, CD2, CD3, CD4, CD5, CD7, CD8, CD10, CD11b, CD13, CD14, CD16, CD19, CD20, CD23, CD33, CD34, CD38, CD45, CD56, CD57, CD64, CD117, CD138, CD200 Num of Markers Run: 29 This result has been reviewed and approved by Kostas Miller M.D., Ph.D. 03/03/2024 INTERPRETIVE INFORMATION: Leuk/Lymph Phenotyping, Flow Cytometry This test was developed and its performance characteristics determined by [facility]. It has not been cleared or approved by the US Food and Drug Administration. This test was performed in a CLIA certified laboratory and is intended for clinical purposes. Performed By: [facility] [address] [place] [address] Production Aide: Sunny Roman MD, PhD CLIA Number: [id number] Performed By: #### M MMP, LPBM2, CRBM2 #### [facility] [address] [facility] [address] ANION GAPon 03-02-2024 Anion gap [Moles/Vol] 9.0 mmol/L Normal 8.0-16.0 [facility] Comment on above: Result Comment: ANIO N GAP = Sodium -(Chloride + CO2) Performed By: #### C RP, WSR #### [facility] [address] [place] [address] Anion Gapon 03-02-2024 Anion gap [Moles/Vol] 9.0 mmol/L 8.0 - 16.0 meq/L [facility] Comment on above: ANION GAP = Sodium - (Chloride + CO2) Performed at [facility] [address] [place] [address] BASIC METABOL PANELon 2023 Calcium [Mass/Vol] 8.4 mg/dL Low 8.5-10.5 [facility] Comment on above: Performed By: #### C RP, WSR #### [facility] [address] [place] [address] Chloride [Moles/Vol] 100 mmol/L Normal 98-111 [facility] Comment on above: Performed By: #### C RP, WSR #### [facility] [address] [place] [address] CO2 [Moles/Vol] 29 mmol/L Normal 23-33 [facility] Comment on above: Performed By: #### C RP, WSR #### [facility] [address] [place] [address] Creatinine [Mass/Vol] 0.9 mg/dL Normal 0.4-1.2 [facility] Comment on above: Performed By: #### C RP, WSR #### [facility] [address] [place] [address] Glucose [Mass/Vol] 103 mg/dL Normal 70-108 [facility] Comment on above: Performed By: #### C RP, WSR #### [facility] [address] [place] [address] Potassium [Moles/Vol] 3.7 mmol/L Normal 3.5-5.2 [facility] Comment on above: Performed By: #### C RP, WSR #### [facility] [address] [place] [address] Sodium [Moles/Vol] 138 mmol/L Normal 135-145 [facility] Comment on above: Performed By: #### C CANDY, WSR #### [facility] [address] [place] [address] Urea nitrogen [Mass/Vol] 10 mg/dL Normal 7-22 [facility] Comment on above: Performed By: #### C CANDY, WSR #### [facility] [address] [place] [address] Basic metabolic 2000 panelon 03-02-2024 Calcium [Mass/Vol] 8.4 mg/dL Low 8.5 - 10. 5 mg/dL [facility] Comment on above: Performed at [facility] [address] [place] [address] Chloride [Moles/Vol] 100 mmol/L 98 - 111 meq/L [facility] CO2 [Moles/Vol] 29 mmol/L 23 - 33 meq/L [facility] Creatinine [Mass/Vol] 0.9 mg/dL 0.4 - 1.2 mg/dL [facility] Glucose [Mass/Vol] 103 mg/dL 70 - 108 mg/dL [facility] Interpretation and review of laboratory results Abnormal [facility] Potassium [Moles/Vol] 3.7 mmol/L 3.5 - 5.2 meq/L [facility] Sodium [Moles/Vol] 138 mmol/L 135 - 145 meq/L [facility] Urea nitrogen [Mass/Vol] 10 mg/dL 7 - 22 mg/dL [facility] CBC WITH DIFFERENTIALon ATYPICAL LYMPH OCC. Normal [facility] Comment on above: Performed By: #### C DMITRY, SCAN1 #### [facility] [address] [place] [address] PLATELET ESTIMATE SL DECREASED Normal Adequate [facility] Comment on above: Performed By: #### C DMITRY, SCAN1 #### [facility] [address] [place] [address] SMUDGE CELLS Present Normal Absent [facility] Comment on above: Performed By: #### C DMITRY, SCAN1 #### [facility] [address] [place] [address] ABS BASOPHILS 0.0 thou/mm3 Normal 0.0-0.1 [facility] Comment on above: Performed By: #### Irene ANDRES, SCAN1 #### [facility] [address] [place] [address] ABS EOSINOPHILS 0.0 thou/mm3 Normal 0.0-0.4 [facility] Comment on above: Performed By: #### C DMITRY, SCAN1 #### [facility] [address] [place] [address] ABS IMMATURE GRANS (IG) 0.08 thou/mm3 High 0.00-0.07 [facility] Comment on above: Performed By: #### Irene ANDRES, SCAN1 #### [facility] [address] [place] [address] ABS LYMPHOCYTES 0.7 thou/mm3 Low 1.0-4.8 [facility] Comment on above: Performed By: #### Irene ANDRES, SCAN1 #### [facility] [address] [place] [address] ABS MONOCYTES 0.1 thou/mm3 Low 0.4-1.3 [facility] Comment on above: Performed By: #### Irene ANDRES, SCAN1 #### [facility] [address] [place] [address] ABS NEUTROPHILS 0.9 thou/mm3 Low 1.8-7.7 [facility] Comment on above: Performed By: #### Irene ANDRES, SCAN1 #### [facility] [address] [place] [address] Basophils/100 WBC (Bld) 0.5 % Normal [facility] Comment on above: Performed By: #### Irene ANDRES, SCAN1 #### [facility] [address] [place] [address] Eosinophils/100 WBC (Bld) 2.6 % Normal [facility] Comment on above: Performed By: #### Irene ANDRES, SCAN1 #### [facility] [address] [place] [address] Erythrocyte distribution width (RBC) [Ratio] 12.1 % Normal 11.5-14.5 [facility] Comment on above: Performed By: #### Irene ANDRES, SCAN1 #### [address] [address] Hematocrit (Bld) [Volume fraction] 33.8 % Low 42.0-52.0 [facility] Comment on above: Performed By: #### C DMITRY, SCAN1 #### [address] [address] Hemoglobin (Bld) [Mass/Vol] 11.6 g/dL Low 14.0-18.0 [facility] Comment on above: Performed By: #### C DMITRY, SCAN1 #### [address] [address] IMMATURE GRANS (IG) 4.2 % Normal [facility] Comment on above: Performed By: #### C DMITRY, SCAN1 #### [address] [address] Lymphocytes/100 WBC (Bld) 37.0 % Normal [facility] Comment on above: Performed By: #### C DMITRY, SCAN1 #### [address] [address] MCH (RBC) [Entitic mass] 30.9 pg Normal 26.0-33.0 [facility] Comment on above: Performed By: #### C DMITRY, SCAN1 #### [address] [address] MCHC (RBC) [Mass/Vol] 34.3 g/dL Normal 32.2-35.5 [facility] Comment on above: Performed By: #### C DMITRY, SCAN1 #### [address] [address] MCV (RBC) [Entitic vol] 90.1 fL Normal 80.0-94.0 [facility] Comment on above: Performed By: #### C DMITRY, SCAN1 #### [address] [address] Monocytes/100 WBC (Bld) 7.8 % Normal [facility] Comment on above: Performed By: #### C DMITRY, SCAN1 #### [address] [address] Neutrophils/100 WBC (Bld) 47.9 % Normal [facility] Comment on above: Performed By: #### C DMITRY, SCAN1 #### [facility] [address] [place] [address] NRBC 0 /100 wbc Normal [facility] Comment on above: Performed By: #### Irene ANDRES, SCAN1 #### [facility] [address] [place] [address] PLATELET 100 thou/mm3 Low 130-400 [facility] Comment on above: Performed By: #### C DMITRY, SCAN1 #### [facility] [address] [place] [address] Platelet mean volume (Bld) [Entitic vol] 11.4 fL Normal 9.4-12.4 [facility] Comment on above: Performed By: #### Irene ANDRES, SCAN1 #### [facility] [address] [place] [address] RBC 3.75 mill/mm3 Low 4.70-6.10 [facility] Comment on above: Performed By: #### Irene ANDRES, SCAN1 #### [facility] [address] [place] [address] RDW-SD 40.8 fL Normal 35.0-45.0 [facility] Comment on above: Performed By: #### Irene ANDRES, SCAN1 #### [facility] [address] [place] [address] WBC 1.9 thou/mm3 Low 4.8-10.8 [facility] Comment on above: Performed By: #### Irene ANDRES, SCAN1 #### [facility] [address] [place] [address] CBC with Auto Differentialon 03-02-2024 Basophils (Bld) [...] [facility] Comment on above: Performed at [facility] [address] [place] [address] Variant lymphocytes LM Ql (Bld) OCC. % [facility] WBC (Bld) [#/Vol] 1.9 10*3/uL Low [facility] EKG Rhythm Stripon PACEART [facility] FRANCES VARNER VIRUS ANTIBODIE Son 03-02-2024 FRANCES VARNER VIRUS ANTIBODIES SEE BELOW Normal [facility] Comment on above: Result Comment: EBV Ab [...] helpful. 11.0 U/mL or greater....Detected Performed By: [facility] [address] [place] [address] Production Aide: Sunny Roman MD, PhD CLIA Number: [id number] Performed By: #### M MMP, LPBM2, CRBM2 #### [facility] [address] [facility] [address] Frances varner virus (EBV) ant ibody panel Ion 03-02-2024 FRANCES-VARNER VIRUS ANTIBODIES SEE BELOW Bon [facility] Comment on above: EBV Ab [...] helpful. 11.0 U/mL or greater....Detected Performed By: [facility] [address] [place] [address] Production Aide: Sunny Roman MD, PhD CLIA Number: [id number] [facility] GFR, ESTIMATEDon 03-02-2024 GFR/1.73 sq M.predicted MDRD (S/P/Bld) [Vol rate/Area] mL/min/{1.73_m2} Normal >60 [facility] Comment on above: Pediatric [...] that affects renal tubular secretion. [place] [address] Result Comment: Pedi atric calculator link [email or web address] [...] Performed By: #### C RP, WSR #### [facility] [address] [place] [address] No Panel Informationon 03-02 [facility] SCAN OF BLOOD SMEARon 2023 SCAN OF BLOOD SMEAR see below Normal [facility] Comment on above: Criteria Exceeded; S can of Differential Slide Performed Performed at [facility] [place] [address] Result Comment: Nichole larkin Exceeded; Scan of Differential Slide Performed Performed By: #### C BCWD, SCAN1 #### [facility] [place] [address] BLOOD SMEAR REVIEWon 024 PATHOLOGIST REVIEWED Estefani FUNES Normal [facility] Comment on above: Result Comment: Panc ytopenia with normocytic anemia. No circulating blasts. No platelet clumps. Clinical correlation is recommended. Performed By: #### M MMP, LPBM2, CRBM2 #### [facility] [address] [facility] [address] SMEAR REVIEWED BY PATHOLOGIST see below Normal [facility] Comment on above: Result Comment: See Below Performed By: #### M MMP, LPBM2, CRBM2 #### [facility] [address] [facility] [address] CBC WITH DIFFERENTIALon 11-0 PATHOLOGIST REVIEWED PCF Normal [facility] Comment on above: Performed By: #### C VFLU #### [facility] [address] [place] [address] ATYPICAL LYMPH OCC. Normal [facility] Comment on above: Performed By: #### C VFLU #### [facility] [address] [place] [address] ABS BASOPHILS 0.0 thou/mm3 Normal 0.0-0.1 [facility] Comment on above: Performed By: #### C VFLU #### [facility] [address] [place] [address] ABS EOSINOPHILS 0.0 thou/mm3 Normal 0.0-0.4 [facility] Comment on above: Performed By: #### C VFLU #### [facility] [address] [place] [address] ABS IMMATURE GRANS (IG) 0.09 thou/mm3 High 0.00-0.07 [facility] Comment on above: Performed By: #### C VFLU #### [facility] [address] [place] [address] ABS LYMPHOCYTES 0.5 thou/mm3 Low 1.0-4.8 [facility] Comment on above: Performed By: #### C VFLU #### [facility] [address] [facility] [place] [address] ABS MONOCYTES 0.1 thou/mm3 Low 0.4-1.3 [facility] Comment on above: Performed By: #### C VFLU #### [address] [address] ABS NEUTROPHILS 1.1 thou/mm3 Low 1.8-7.7 [facility] Comment on above: Performed By: #### C VFLU #### [address] [address] Basophils/100 WBC (Bld) 1.1 % Normal [facility] Comment on above: Performed By: #### C VFLU #### [address] [address] Eosinophils/100 WBC (Bld) 1.7 % Normal [facility] Comment on above: Performed By: #### C VFLU #### [address] [address] Erythrocyte distribution width (RBC) [Ratio] 12.3 % Normal 11.5-14.5 [facility] Comment on above: Performed By: #### C VFLU #### [address] [address] Hematocrit (Bld) [Volume fraction] 38.2 % Low 42.0-52.0 [facility] Comment on above: Performed By: #### C VFLU #### [address] [address] Hemoglobin (Bld) [Mass/Vol] 12.9 g/dL Low 14.0-18.0 [facility] Comment on above: Performed By: #### C VFLU #### [address] [address] IMMATURE GRANS (IG) 5.0 % Normal [facility] Comment on above: Performed By: #### C VFLU #### [address] [address] Lymphocytes/100 WBC (Bld) 26.3 % Normal [facility] Comment on above: Performed By: #### C VFLU #### [address] [address] MCH (RBC) [Entitic mass] 30.2 pg Normal 26.0-33.0 [facility] Comment on above: Performed By: #### C VFLU #### [address] [address] MCHC (RBC) [Mass/Vol] 33.8 g/dL Normal 32.2-35.5 [facility] Comment on above: Performed By: #### C VFLU #### [address] [address] MCV (RBC) [Entitic vol] 89.5 fL Normal 80.0-94.0 [facility] Comment on above: Performed By: #### C VFLU #### [address] [address] Monocytes/100 WBC (Bld) 5.6 % Normal [facility] Comment on above: Performed By: #### C VFLU #### [address] [address] Neutrophils/100 WBC (Bld) 60.3 % Normal [facility] Comment on above: Performed By: #### C VFLU #### [address] [address] NRBC 0 /100 wbc Normal [facility] Comment on above: Performed By: #### C VFLU #### [address] [address] PLATELET 86 thou/mm3 Low 130-400 [facility] Comment on above: Performed By: #### C VFLU #### [address] [address] Platelet mean volume (Bld) [Entitic vol] 11.2 fL Normal 9.4-12.4 [facility] Comment on above: Performed By: #### C VFLU #### [facility] [address] [address] RBC 4.27 mill/mm3 Low 4.70-6.10 [facility] Comment on above: Performed By: #### C VFLU #### [address] [address] RDW-SD 40.0 fL Normal 35.0-45.0 [facility] Comment on above: Performed By: #### C VFLU #### [facility] [address] [place] [address] WBC 1.8 thou/mm3 Low 4.8-10.8 [facility] Comment on above: Performed By: #### C VFLU #### [facility] [address] [place] [address] CBC with Auto Differentialon 03-01-2024 Basophils (Bld) [...] [Ratio] 0 % /100 wbc [facility] Comment on above: Performed at [facility] [address] [place] [address] Pathologist Review PCF Bon [facility] cours [facility] Platelet mean volume (Bld) [Entitic vol] 11.2 fL 9.4 - 12.4 fL Roberto [facility] Platelets (Bld) [#/Vol] 86 10*3/uL Low Bon [facility] RBC (Bld) [#/Vol] 4.27 10*6/uL Low Bon S [facility]ours [facility] Variant lymphocytes LM Ql (Bld) OCC. % [facility] WBC (Bld) [#/Vol] 1.8 10*3/uL Low Bon Se veronique [facility] CT BIOPSY BONE MARROWon 11-0 CT BIOPSY [...] ox monitoring devices by a registered nurse. Xpak-xf-pwxp time with patient 10 minutes. PROCEDURE: Signed [...] utilizing coaxial technique and handed to the ear mold laboratory technician for processing and evaluation. Post [...] Kostas Mendoza MD 03/01/24 Final result Normal [facility] CT Guidance for biopsy of Cosmo taylor marrowon 03-01-2024 Status post successf ul CT guided bone marrow biopsy. This report has been created using voice recognition software. It may contain minor errors which are inherent in voice recognition technology. Electronically signed by Dr Kostas Mendoza [facility] [place] CT-GUIDED BONE MARRO W BIOPSY: CLINICAL INFORMATION: [...] ox monitoring devices by a registered nurse. Btol-vp-fhka time with patient 10 minutes. PROCEDURE: Signed [...] utilizing coaxial technique and handed to the ear mold laboratory technician for processing and evaluation. Post procedure CT images revealed no significant post biopsy hemorrhage... At the end of the procedure, hemostasis was obtained with manual pressure The patient tolerated the procedure well. ALL CT SCANS AT THIS FACILITY use dose modulation, iterative reconstruction, and/or weight-based dosing when appropriate to reduce radiation dose to as low as reasonably achievable. [facility] Kostas Morelos MD - 03/01/2024 CT-GUIDED [...] ox monitoring devices by a registered nurse. Vchb-xg-gbxw time with patient 10 minutes. PROCEDURE: Signed [...] utilizing coaxial technique and handed to the ear mold laboratory technician for processing and evaluation. Post [...] technology. Electronically signed by Dr [facility]endoza [facility] (narrative[facility] [place] CT Guidance for biopsy of Cosmo ne marrowOrdered By: Kostas Mendoza on 03-01-2024 [employer] Work Phone: EKG 12 LeadOrdered By: Julito Morris on 03-01-2024 Atrial Rate 87 BPM [employer] Work Phone: P [place] 73 degrees [employer] Phone: P-R Interval 140 ms [employer] Phone: Q-T Interval 378 ms [employer] Phone: QRS Duration 104 ms [employer] Phone: QTc Calculation (Bazett) 454 ms [employer] Work Phone: R [place] 72 degrees Roberto [facility] Work Phone: T [place] 42 degrees Roberto [facility] Work Phone: Ventricular Rate 87 BPM Roberto Beasley [facility] [employer] Work Phone: Roberto De Guzman [facility] Work Phone: EKG 12 Leadon 03-01-2024 Normal sinus [...] NAYELI MORRIS ([id number]) on 03/01/2024 1:00:05 PM [facility] EKG Rhythm Stripon 4 75 PACEART [facility] 81 PACEART [facility] hr 86 PACEART [facility] No Panel Informationon 03-01 [facility] Path Review, Smearon 024 REVIEWED BY Tammi FUNES. [facility] Comment on above: Pancytopenia with no rmocytic anemia. No circulating blasts. No platelet clumps. Clinical correlation is recommended. Performed at [facility] [address] [place] [address] Smear Review see below [facility] Comment on above: See Below SCAN OF BLOOD SMEARon 2023 SCAN OF BLOOD SMEAR see below Normal [facility] Comment on above: Criteria Exceeded; S can of Differential Slide Performed Performed at [facility] [address] [place] [address] Result Comment: Crit chaya Exceeded; Scan of Differential Slide Performed Performed By: #### C VFLU #### [facility] [employer] (ABAM) [address] [place] [address] SURGICALon 03-01-2024 [facility] Pathology JAYME F, ETHAN [phone] Assoc. Page 1 of [address] [place] [address] PROC: 03/01/2024 NVML/ [employer] RECV: 03/01/[address] RPTD: 03/20/2024 R[place] [id number] LOC: 4A ACCT: [id number] SEX: M : 1990 AGE: 33 Y PATHOLOGY REPORT ATTN: RUTH WYMAN REQ: JENNY ALVAREZ Copies To: KOSTAS MENDOZA; RUTH WYMAN Clinical Information: PANCYTOPENIA ADDENDUM 03/20/2024 INAL [...] x 2.0 x 0.7 cm in aggregate. Sanitation Engineer blood clot is submitted in one cassette [...] currently pending. Please see separate reference reports. [id number] x 2 LIZY BRISCOE M.D., F.C.A.P. [facility]/ [facility] Printed on: 03/20/[address] [place] [address] Original print date: 03/20/2024 Normal [facility] Scan of Blood Smearon 2023 [facility] ANION GAPon 02-29-2024 Anion gap [Moles/Vol] 13.0 mmol/L Normal 8.0-16.0 [facility] Comment on above: Result Comment: ANIO N GAP = Sodium -(Chloride + CO2) Performed By: #### C VFLU #### [facility] [address] [address] Anion Gapon 02-29-2024 Anion gap [Moles/Vol] 13.0 mmol/L 8.0 - 16.0 meq/L [facility] Comment on above: ANION GAP = Sodium - (Chloride + CO2) Performed at [place] [place] [address] BASIC METABOL PANELon 2023 Calcium [Mass/Vol] 8.3 mg/dL Low 8.5-10.5 [facility] Comment on above: Performed By: #### C VFLU #### [address] [address] Chloride [Moles/Vol] 102 mmol/L Normal 98-111 [facility] Comment on above: Performed By: #### C VFLU #### [address] [address] CO2 [Moles/Vol] 24 mmol/L Normal 23-33 [facility] Comment on above: Performed By: #### C VFLU #### [address] [address] Creatinine [Mass/Vol] 1.1 mg/dL Normal 0.4-1.2 [facility] Comment on above: Performed By: #### C VFLU #### [address] [address] Glucose [Mass/Vol] 96 mg/dL Normal 70-108 [facility] Comment on above: Performed By: #### C VFLU #### [facility] [address] [place] [address] Potassium [Moles/Vol] 3.7 mmol/L Normal 3.5-5.2 [facility] Comment on above: Performed By: #### C VFLU #### [address] [address] Sodium [Moles/Vol] 139 mmol/L Normal 135-145 [facility] Comment on above: Performed By: #### C VFLU #### [facility] [address] [place] [address] Urea nitrogen [Mass/Vol] 13 mg/dL Normal 7-22 [facility] Comment on above: Performed By: #### C VFLU #### [address] [address] Basic metabolic 2000 panelon 02-29-2024 Calcium [Mass/Vol] 8.3 mg/dL Low 8.5 - 10. 5 mg/dL [facility] Comment on above: Performed at [facility] [address] [place] [address] Chloride [Moles/Vol] 102 mmol/L 98 - 111 meq/L [facility] CO2 [Moles/Vol] 24 mmol/L 23 - 33 meq/L [facility] Creatinine [Mass/Vol] 1.1 mg/dL 0.4 - 1.2 mg/dL [facility] Glucose [Mass/Vol] 96 mg/dL 70 - 108 mg/dL [facility] Interpretation and review of laboratory results Abnormal [facility] Potassium [Moles/Vol] 3.7 mmol/L 3.5 - 5.2 meq/L [facility] Sodium [Moles/Vol] 139 mmol/L 135 - 145 meq/L [facility] Urea nitrogen [Mass/Vol] 13 mg/dL 7 - 22 mg/dL [facility] C-REACTIVE PROTEINon 024 C-REACTIVE PROTEIN 4.49 mg/dl High 0.00-1.00 [facility] Comment on above: Performed By: #### C RP, WSR #### [facility] [address] [place] [address] C-Reactive Proteinon 024 CRP [Mass/Vol] 4.49 mg/dl High 0.00 - 1.00 mg/dl [facility] Comment on above: Performed at [facility] [address] [place] [address] CALCIUM (IONIZED) * WBon CALCIUM (IONIZED) * WB 1.11 mmol/L Low 1.12-1.32 [facility] Comment on above: Performed By: #### C VFLU #### [address] [address] CBC WITH DIFFERENTIALon 01-31 PLATELET ESTIMATE DECREASED Normal Adequate [facility] Comment on above: Performed By: #### C VFLU #### [address] [address] SMUDGE CELLS Present Normal Absent [facility] Comment on above: Performed By: #### C VFLU #### [address] [address] ABS BASOPHILS 0.0 thou/mm3 Normal 0.0-0.1 [facility] Comment on above: Performed By: #### C VFLU #### [address] [address] ABS EOSINOPHILS 0.0 thou/mm3 Normal 0.0-0.4 [facility] Comment on above: Performed By: #### C VFLU #### [address] [address] ABS IMMATURE GRANS (IG) 0.05 thou/mm3 Normal 0.00-0.07 [facility] Comment on above: Performed By: #### C VFLU #### [address] [address] ABS LYMPHOCYTES 0.4 thou/mm3 Low 1.0-4.8 [facility] Comment on above: Performed By: #### C VFLU #### [address] [address] ABS MONOCYTES 0.1 thou/mm3 Low 0.4-1.3 [facility] Comment on above: Performed By: #### C VFLU #### [facility] [address] [place] [address] ABS NEUTROPHILS 0.9 thou/mm3 Low 1.8-7.7 [facility] Comment on above: Performed By: #### C VFLU #### [address] [address] Basophils/100 WBC (Bld) 1.4 % Normal [facility] Comment on above: Performed By: #### C VFLU #### [address] [address] Eosinophils/100 WBC (Bld) 0.7 % Normal [facility] Comment on above: Performed By: #### C VFLU #### [address] [address] Erythrocyte distribution width (RBC) [Ratio] 12.0 % Normal 11.5-14.5 [facility] Comment on above: Performed By: #### C VFLU #### [address] [address] Hematocrit (Bld) [Volume fraction] 36.0 % Low 42.0-52.0 [facility] Comment on above: Performed By: #### C VFLU #### [address] [address] Hemoglobin (Bld) [Mass/Vol] 12.2 g/dL Low 14.0-18.0 [facility] Comment on above: Performed By: #### C VFLU #### [address] [address] IMMATURE GRANS (IG) 3.4 % Normal [facility] Comment on above: Performed By: #### C VFLU #### [address] [address] Lymphocytes/100 WBC (Bld) 25.0 % Normal [facility] Comment on above: Performed By: #### C VFLU #### [address] [address] MCH (RBC) [Entitic mass] 30.7 pg Normal 26.0-33.0 [facility] Comment on above: Performed By: #### C VFLU #### [address] [address] MCHC (RBC) [Mass/Vol] 33.9 g/dL Normal 32.2-35.5 [facility] Comment on above: Performed By: #### C VFLU #### [address] [address] MCV (RBC) [Entitic vol] 90.5 fL Normal 80.0-94.0 [facility] Comment on above: Performed By: #### C VFLU #### [address] [address] Monocytes/100 WBC (Bld) 7.4 % Normal [facility] Comment on above: Performed By: #### C VFLU #### [address] [address] Neutrophils/100 WBC (Bld) 62.1 % Normal [facility] Comment on above: Performed By: #### C VFLU #### [address] [address] NRBC 0 /100 wbc Normal [facility] Comment on above: Performed By: #### C VFLU #### [address] [address] PLATELET 89 thou/mm3 Low 130-400 [facility] Comment on above: Performed By: #### C VFLU #### [address] [address] Platelet mean volume (Bld) [Entitic vol] 10.7 fL Normal 9.4-12.4 [facility] Comment on above: Performed By: #### C VFLU #### [address] [address] RBC 3.98 mill/mm3 Low 4.70-6.10 [facility] Comment on above: Performed By: #### C VFLU #### [address] [address] RDW-SD 40.1 fL Normal 35.0-45.0 [facility] Comment on above: Performed By: #### C VFLU #### [facility] [address] [place] [address] WBC 1.5 thou/mm3 Low 4.8-10.8 [facility] Comment on above: Performed By: #### C VFLU #### [address] [address] CBC with Auto Differentialon 02-29-2024 Basophils (Bld) [...] granulocytes/100 WBC (Bld) 3.4 % [facility] Interpretation and review of laboratory results Abnormal [facility] Lymphocytes Absolute 0.4 Low [facility] Lymphocytes/100 WBC (Bld) 25.0 % [facility] MCH (RBC) [Entitic mass] 30.7 pg 26.0 - 33.0 pg [facility] MCHC (RBC) [Mass/Vol] 33.9 g/dL [facility] MCV (RBC) [Entitic vol] 90.5 fL 80.0 - 94.0 fL [facility] Monocytes Absolute 0.1 Low [facility] Monocytes/100 WBC (Bld) 7.4 % Bon [...] (Bld) [#/Vol] 3.98 10*6/uL Low [facility] Smudge cells LM Ql (Bld) Present Absent [facility] Comment on above: Performed at [facility] [address] [place] [address] WBC (Bld) [#/Vol] 1.5 10*3/uL Low [facility] CRP [Mass/Vol]on 02-29-2024 Interpretation and review of laboratory results Abnormal [facility] Calcium, Ionizedon Calcium.ionized ISE (Bld) [Moles/Vol] 1.11 mmol/L Low 1.12 - 1.32 mmol/L [facility] Comment on above: Performed at [facility] [address] [place] [address] EKG 12-LEADon 02-29-2024 EKG 12-LEAD 87 87 140 104 378 [phone] Normal sinus rhythm Nonspecific T wave abnormality Abnormal ECG When compared with ECG of 28-FEB-2024 20:02, No significant change was found Confirmed by NAYELI MORRIS ([id number]) on 03/01/2024 1:00:05 PM [email or web address] RetrieveTestByDateTime ?OcrilnhMK=[id number]&D ate=29-02-2024&Time=20 %3a57%3a59%3a00&TestTy pe=ECG&Site=3&OutputTy pe=PDF&Ext=PDF Normal [facility] ESR Westergren method (Bld) [Velocity]on 02-29-2024 ESR (Bld) [Velocity] 10 mm/h [facility] Comment on above: Performed at [facility] [address] [place] [address] [facility] Electrophoresis Protein, Ser umon 02-29-2024 Protein Electrophoresis, Serum SEE BELOW [facility] Comment on above: Total [...] See Note Authorized individuals can access the Vertro Enhanced Report using the following link: [email or web address] Performed By: [facility] [address] [place] [id number] Production Aide: Sunny Roman MD, PhD CLIA Number: [id number] [facility] FERRITINon 02-29-2024 Ferritin [Mass/Vol] 1435 ng/mL High 22-322 [facility] Comment on above: Performed By: #### C RP, WSR #### [facility] [address] [place] [address] Ferritinon 02-29-2024 Ferritin IA [Mass/Vol] 1435 ng/mL High 22 - 322 ng/mL [facility] Comment on above: Performed at [facility] [address] [place] [address] GFR, ESTIMATEDon 02-29-2024 GFR/1.73 sq M.predicted MDRD (S/P/Bld) [Vol rate/Area] mL/min/{1.73_m2} Normal >60 [facility] Comment on above: Pediatric [...] that affects renal tubular secretion. Performed [place] [address] Result Comment: Pedshi atric calculator link [email or web address]://www.kidney.org/professionals/kdoqi/gfr_calculatorped Effective Jan 31, [...] secretion. Performed By: #### C VFLU #### [address] [address] HEPATIC FUNCTION PANELon Albumin [Mass/Vol] 3.3 g/dL Low 3.5-5.1 [facility] Comment on above: Performed By: #### C RP, WSR #### [address] [address] ALP [Catalytic activity/Vol] 89 U/L Normal 38-126 [facility] Comment on above: Performed By: #### C RP, WSR #### [address] [address] ALT [Catalytic activity/Vol] 49 U/L Normal 11-66 [facility] Comment on above: Performed By: #### C RP, WSR #### [address] [address] AST [Catalytic activity/Vol] 61 U/L High 5-40 [facility] Comment on above: Performed By: #### C RP, WSR #### [facility] [address] [address] Bilirubin [Mass/Vol] 0.7 mg/dL Normal 0.3-1.2 [facility] Comment on above: Performed By: #### C RP, WSR #### [facility] [address] [place] [address] Bilirubin.direct [Mass/Vol] 0.3 mg/dL Normal 0.1-13.8 [facility] Comment on above: Performed By: #### C RP, WSR #### [facility] [address] [place] [address] Protein [Mass/Vol] 5.8 g/dL Low 6.1-8.0 [facility] Comment on above: Performed By: #### C RP, WSR #### [facility] [address] [place] [address] HIV 1+2 Ab+HIV1 p24 Ag IA Ql on 02-29-2024 [facility] HIV AG/ABon 02-29-2024 HIV AG/AB SEE BELOW Normal [facility] Comment on above: Result Comment: HIV Ag/Ab NONREACTIVE NR No laboratory evidence of HIV infection. If acute HIV infection is suspected, consider testing for HIV-1 RNA. Performed at [facility], [address] [place] [address] . Performed By: #### C RP, WSR #### [facility] [address] [place] [address] HIV Screenon 02-29-2024 HIV 1+2 Ab+HIV1 p24 Ag IA Ql SEE BELOW [facility] Comment on above: HIV Ag/Ab NONREACTIV E NR No laboratory evidence of HIV infection. If acute HIV infection is suspected, consider testing for HIV-1 RNA. Performed at [facility], [address] [place] [address] . Hepatic function 2000 panelo n 02-29-2024 Albumin BCG dye [Mass/Vol] 3.3 g/dL Low 3.5 - 5.1 g/dL [facility] ALP [Catalytic activity/Vol] 89 U/L 38 - 126 U/L [facility] ALT No additional P-5'-P [Catalytic activity/Vol] 49 U/L 11 - 66 U/L [facility] AST [Catalytic activity/Vol] 61 U/L High 5 - 40 U/L [facility] Bilirubin [Mass/Vol] 0.7 mg/dL 0.3 - 1.2 mg/dL [facility] Bilirubin.conjugate d [Mass/Vol] 0.3 mg/dL 0.1 - 13.8 mg/dL [facility] Protein [Mass/Vol] 5.8 g/dL Low 6.1 - 8.0 g/dL [facility] Comment on above: Performed at [facility] [employer] [facility] [employer] [address] [place] [id number] IRONon 02-29-2024 Iron [Mass/Vol] 31 ug/dL Low 65-195 [facility] Comment on above: Performed By: #### C CANDY, WSR #### [facility] [address] [place] [address] IRON BINDING CAPACITYon 01-31 IRON BINDING CAPACITY 199 ug/dL Normal 171-450 [facility] Comment on above: Performed By: #### C RP, WSR #### [facility] [address] [place] [address] IRON SATURATIONon 02-29-2024 Iron saturation [Mass fraction] 16 % Low 20 - 50 % [facility] Comment on above: Performed at [facility] [address] [place] [address] IRON SATURATION 16 % Low 20-50 [facility] Comment on above: Performed By: #### C CANDY, WSR #### [facility] [address] [place] [address] Ironon 02-29-2024 Iron [Mass/Vol] 31 ug/dL Low 65 - 195 ug/dL [facility] Comment on above: Performed at [facility] [address] [place] [address] Iron binding capacityon 01-31 Iron binding capacity [Mass/Vol] 199 ug/dL 171 - 450 ug/dL [facility] Comment on above: Performed at [facility] [address] [place] [address] MR Brain WO and W contrast I Von 02-29-2024 No acute intracrania l findings. This document has been electronically signed by: Jadon Bhatti MD on 02/29/2024 02:17 AM [facility] MRI Brain W/WO Contrast COMPARISON: None FINDINGS: No evidence of acute infarction. No acute intracranial hemorrhage. No mass-effect or midline shift. No abnormal enhancement. No hydrocephalus. Clear paranasal sinuses. Clear mastoid air cells. Unremarkable orbits. [facility] Jadon Wills MD - 02/29/2024 MRI Brain W/WO Contrast COMPARISON: None FINDINGS: No evidence of acute infarction. No acute intracranial hemorrhage. No mass-effect or midline shift. No abnormal enhancement. No hydrocephalus. Clear paranasal sinuses. Clear mastoid air cells. Unremarkable orbits. IMPRESSION: No acute intracranial findings. This document has been electronically signed by: Jadon Bhatti MD on 02/29/2024 02:17 AM [facility] MR Brain WO and W contrast I VOrdered By: Jadon Bhatti on 02-29-2024 [facility] Work Phone: MRI BRAIN [...] Jadon Bhatti MD 02/29/24 Final result Normal [facility] No Panel Informationon 02-28 Interpretation and review of laboratory results Abnormal [facility] Interpretation and review of laboratory results Abnormal [facility] PROTEIN ELECTRO., SERUMon PROTEIN ELECTRO., SERUM SEE BELOW Normal [facility] Comment on above: Result Comment: Tota l [...] See Note Authorized individuals can access the [facility] Enhanced Report using the following link: [email or web address] Performed By: [facility] [address] [place] [address] Production Aide: Sunny Roman MD, PhD CLIA Number: [id number] Performed By: #### Irene GUPTA, WSR #### [place] [address] SCAN OF BLOOD SMEARon 2023 SCAN OF BLOOD SMEAR see below Normal [facility] Comment on above: Criteria Exceeded; S can of Differential Slide [place]formed [place] [address] Result Comment: Crit eria Exceeded; Scan of Differential Slide Performed Performed By: #### C CANDY, WSR #### [place] [address] SED RATEon 02-29-2024 SED RATE 10 mm/hr Normal 0-10 [facility] Comment on above: Performed By: #### Irene GUPTA, WSR #### [place] [address] ANION GAPon 02-28-2024 Anion gap [Moles/Vol] 14.0 mmol/L Normal 8.0-16.0 [facility] Comment on above: Result Comment: ANIO N GAP = Sodium -(Chloride + CO2) Performed By: #### M JORGE HAILEBM2, CRBM2 #### [facility] [address] [facility] [address] APTTon 02-28-2024 aPTT Coag (Bld) [Time] 24.6 s Normal 22.0-38.0 [facility] Comment on above: Result Comment: Ther apeutic Heparin Reference Range= 60-95 seconds (corresponds to 0.3 to 0.7 u/mL Anti-Xa factor activity) Performed By: #### M MIC, LPBM2, CRBM2 #### [facility] [address] [facility] [address] Anion Gapon 02-28-2024 Anion gap [Moles/Vol] 14.0 mmol/L 8.0 - 16.0 meq/L [facility] Comment on above: ANION GAP = Sodium - (Chloride + CO2) [place] [address] CBC WITH DIFFERENTIALon 10-3 0-4 ABS BASOPHILS 0.0 thou/mm3 Normal 0.0-0.1 [facility] Comment on above: Performed By: #### M MMP, LPBM2, CRBM2 #### [facility] [address] [facility] [address] ABS EOSINOPHILS 0.0 thou/mm3 Normal 0.0-0.4 [facility] Comment on above: Performed By: #### M MMP, LPBM2, CRBM2 #### [facility] [address] [facility] [address] ABS IMMATURE GRANS (IG) 0.03 thou/mm3 Normal 0.00-0.07 [facility] Comment on above: Performed By: #### M MMP, LPBM2, CRBM2 #### [facility] [address] [facility] [address] ABS LYMPHOCYTES 0.4 thou/mm3 Low 1.0-4.8 [facility] Comment on above: Performed By: #### M MMP, LPBM2, CRBM2 #### [facility] [address] [facility] [address] ABS MONOCYTES 0.2 thou/mm3 Low 0.4-1.3 [facility] Comment on above: Performed By: #### M MMP, LPBM2, CRBM2 #### [facility] [address] [facility] [address] ABS NEUTROPHILS 1.6 thou/mm3 Low 1.8-7.7 [facility] Comment on above: Performed By: #### M MMP, LPBM2, CRBM2 #### [facility] [address] [facility] [address] Basophils/100 WBC (Bld) 1.7 % Normal [facility] Comment on above: Performed By: #### M MMP, LPBM2, CRBM2 #### [facility] [address] [facility] [address] Eosinophils/100 WBC (Bld) 0.9 % Normal [facility] Comment on above: Performed By: #### M MMP, LPBM2, CRBM2 #### [facility] [address] [facility] [address] Erythrocyte distribution width (RBC) [Ratio] 12.2 % Normal 11.5-14.5 [facility] Comment on above: Performed By: #### M MMP, LPBM2, CRBM2 #### [facility] [address] [facility] [place] [place] [address] Hematocrit (Bld) [Volume fraction] 39.2 % Low 42.0-52.0 [facility] Comment on above: Performed By: #### M MMP, LPBM2, CRBM2 #### [facility] [address] [facility] [place] [address] Hemoglobin (Bld) [Mass/Vol] 13.1 g/dL Low 14.0-18.0 [facility] Comment on above: Performed By: #### M MMP, LPBM2, CRBM2 #### [facility] [address] [facility] [place] [address] IMMATURE GRANS (IG) 1.3 % Normal [facility] Comment on above: Performed By: #### M MMP, LPBM2, CRBM2 #### [facility] [address] [facility] [place] [address] Lymphocytes/100 WBC (Bld) 17.7 % Normal [facility] Comment on above: Performed By: #### M MMP, LPBM2, CRBM2 #### [facility] [address] [facility] [place] [address] MCH (RBC) [Entitic mass] 30.2 pg Normal 26.0-33.0 [facility] Comment on above: Performed By: #### M MMP, LPBM2, CRBM2 #### [facility] [address] [facility] [place] [address] MCHC (RBC) [Mass/Vol] 33.4 g/dL Normal 32.2-35.5 [facility] Comment on above: Performed By: #### M MMP, LPBM2, CRBM2 #### [facility] [address] [facility] [place] [address] MCV (RBC) [Entitic vol] 90.3 fL Normal 80.0-94.0 [facility] Comment on above: Performed By: #### M MMP, LPBM2, CRBM2 #### [facility] [address] [facility] [place] [facility] [place] [address] Monocytes/100 WBC (Bld) 8.2 % Normal [facility] Comment on above: Performed By: #### M MMP, LPBM2, CRBM2 #### [facility] [address] [facility] [address] Neutrophils/100 WBC (Bld) 70.2 % Normal [facility] Comment on above: Performed By: #### M MMP, LPBM2, CRBM2 #### [facility] [address] [facility] [address] NRBC 0 /100 wbc Normal [facility] Comment on above: Performed By: #### M MMP, LPBM2, CRBM2 #### [facility] [address] [facility] [address] PLATELET 107 thou/mm3 Low 130-400 [facility] Comment on above: Performed By: #### M MMP, LPBM2, CRBM2 #### [facility] [address] [facility] [address] Platelet mean volume (Bld) [Entitic vol] 10.7 fL Normal 9.4-12.4 [facility] Comment on above: Performed By: #### M MMP, LPBM2, CRBM2 #### [facility] [address] [facility] [address] RBC 4.34 mill/mm3 Low 4.70-6.10 [facility] Comment on above: Performed By: #### M MMP, LPBM2, CRBM2 #### [facility] [address] [facility] [address] RDW-SD 40.4 fL Normal 35.0-45.0 [facility] Comment on above: Performed By: #### M MMP, LPBM2, CRBM2 #### [facility] [address] [facility] [address] WBC 2.3 thou/mm3 Low 4.8-10.8 [facility] Comment on above: Performed By: #### M MMP, LPBM2, CRBM2 #### [facility] [address] [facility] [address] CBC with Auto Differentialon 02-28-2024 Basophils (Bld) [#/Vol] 0.0 10*3/uL [facility] Eosinophils Absolute 0.0 [facility] Erythrocyte distribution width (RBC) [Entitic vol] 40.4 fL 35.0 - 45.0 fL [facility] Immature granulocytes (Bld) [#/Vol] 0.03 10*3/uL [facility] Immature granulocytes/100 WBC (Bld) 1.3 % [facility] Interpretation and review of laboratory results Abnormal [facility] Lymphocytes Absolute 0.4 Low [facility] Monocytes Absolute 0.2 Low [facility] Neutrophils Absolute 1.6 Low [facility] Nucleated RBC/100 WBC (Bld) [Ratio] 0 % /100 wbc [facility] Comment on above: Performed at [facility] [address] [place] [address] Platelets (Bld) [#/Vol] 107 10*3/uL Low [facility] RBC (Bld) [#/Vol] 4.34 10*6/uL Low [facility] WBC (Bld) [#/Vol] 2.3 10*3/uL Low [facility] COMP. METABOLIC PANELon 01-31 Albumin [Mass/Vol] 3.6 g/dL Normal 3.5-5.1 [facility] Comment on above: Performed By: #### M MMP, LPBM2, CRBM2 #### [facility] [address] [facility] [place] [address] ALP [Catalytic activity/Vol] 85 U/L Normal 38-126 [facility] Comment on above: Performed By: #### M MMP, LPBM2, CRBM2 #### [facility] [address] [facility] [place] [facility] [place] [address] ALT [Catalytic activity/Vol] 39 U/L Normal 11-66 [facility] Comment on above: Performed By: #### M MMP, LPBM2, CRBM2 #### [facility] [address] [place] [address] AST [Catalytic activity/Vol] 45 U/L High 5-40 [facility] Comment on above: Performed By: #### M MMP, LPBM2, CRBM2 #### [facility] [address] [facility] [place] [facility] [place] [address] Bilirubin [Mass/Vol] 0.8 mg/dL Normal 0.3-1.2 [facility] Comment on above: Performed By: #### M MMP, LPBM2, CRBM2 #### [facility] [address] [place] [address] Calcium [Mass/Vol] 8.5 mg/dL Normal 8.5-10.5 [facility] Comment on above: Performed By: #### M MMP, LPBM2, CRBM2 #### [facility] [address] [place] [address] Chloride [Moles/Vol] 101 mmol/L Normal 98-111 [facility] Comment on above: Performed By: #### M MMP, LPBM2, CRBM2 #### [facility] [address] [place] [address] CO2 [Moles/Vol] 25 mmol/L Normal 23-33 [facility] Comment on above: Performed By: #### M MMP, LPBM2, CRBM2 #### [facility] [address] [place] [address] Creatinine [Mass/Vol] 1.2 mg/dL Normal 0.4-1.2 [facility] Comment on above: Performed By: #### M MMP, LPBM2, CRBM2 #### [facility] [address] [place] [address] Glucose [Mass/Vol] 94 mg/dL Normal 70-108 [facility] Comment on above: Performed By: #### M MMP, LPBM2, CRBM2 #### [facility] [address] [place] [address] POTASSIUM WITH REFLEX MG 4.1 meq/L Normal 3.5-5.2 [facility] Comment on above: Performed By: #### M MMP, LPBM2, CRBM2 #### [facility] [address] [facility] [place] [facility] [place] [address] Protein [Mass/Vol] 6.2 g/dL Normal 6.1-8.0 [facility] Comment on above: Performed By: #### M MMP, LPBM2, CRBM2 #### [facility] [address] [place] [address] Sodium [Moles/Vol] 140 mmol/L Normal 135-145 [facility] Comment on above: Performed By: #### M MMP, LPBM2, CRBM2 #### [facility] [address] [place] [address] Urea nitrogen [Mass/Vol] 15 mg/dL Normal 7-22 [facility] Comment on above: Performed By: #### M MMP, LPBM2, CRBM2 #### [facility] [address] [facility] [address] Comprehensive metabolic 2000 panelon 02-28-2024 Albumin BCG dye [Mass/Vol] 3.6 g/dL 3.5 - 5.1 g/dL [facility] ALP [Catalytic activity/Vol] 85 U/L 38 - 126 U/L [facility] ALT No additional P-5'-P [Catalytic activity/Vol] 39 U/L 11 - 66 U/L [facility] Comment on above: Performed at [facility] [address] [place] [address] AST [Catalytic activity/Vol] 45 U/L High 5 - 40 U/L [facility] Bilirubin [Mass/Vol] 0.8 mg/dL 0.3 - 1.2 mg/dL [facility] Calcium [Mass/Vol] 8.5 mg/dL 8.5 - 10. 5 mg/dL [facility] Chloride [Moles/Vol] 101 mmol/L 98 - 111 meq/L [facility] CO2 [Moles/Vol] 25 mmol/L 23 - 33 meq/L [facility] Creatinine [Mass/Vol] 1.2 mg/dL 0.4 - 1.2 mg/dL [facility] Glucose [Mass/Vol] 94 mg/dL 70 - 108 mg/dL [facility] Interpretation and review of laboratory results Abnormal [facility] Potassium [Moles/Vol] 4.1 mmol/L 3.5 - 5.2 meq/L [facility] Protein [Mass/Vol] 6.2 g/dL 6.1 - 8.0 g/dL [facility] Sodium [Moles/Vol] 140 mmol/L 135 - 145 meq/L [facility] Urea nitrogen [Mass/Vol] 15 mg/dL 7 - 22 mg/dL [facility] EKG 12 Leadon 02-28-2024 Atrial Rate 91 BPM [facility] P [place] 69 degrees [facility] P-R Interval 142 ms [facility] Q-T Interval 360 ms [facility] QRS Duration 100 ms [facility] QTc Calculation (Bazett) 442 ms [facility] [employer] R [place] 70 degrees [facility] [employer] T [place] 25 degrees [facility] Ventricular Rate 91 BPM [facility] Normal sinus rhythm Incomplete right bundle branch block Nonspecific T wave abnormality Abnormal ECG When compared with ECG of 28-FEB-2024 16:05, No significant change was found Confirmed by Arben Mercado ([id number]) on 02/28/2024 8:19:15 PM [facility] STR MUSE Unknown, Provider, M D - 02/28/2024 Normal sinus rhythm Incomplete right bundle branch block Nonspecific T wave abnormality Abnormal ECG When compared with ECG of 28-FEB-2024 16:05, No significant change was found Confirmed by Arben Mercado ([id number]) on 02/28/2024 8:19:15 PM [facility] Normal sinus rhythm Incomplete right bundle branch block Nonspecific ST and T wave abnormality Abnormal ECG No previous ECGs available Clinical correlation is indicated Confirmed by Arben Mercado ([id number]) on 02/28/2024 7:52:29 PM [facility] STR MUSE Unknown, Provider, M D - 02/28/2024 Normal sinus rhythm Incomplete right bundle branch block Nonspecific ST and T wave abnormality Abnormal ECG No previous ECGs available Clinical correlation is indicated Confirmed by Arben Mercado ([id number]) on 02/28/2024 7:52:29 PM [facility] EKG 12 LeadOrdered By: Provi kenya Unknown on 02-28-2024 Atrial Rate 78 BPM [facility] [employer] Work Phone: P [place] 56 degrees [facility] [employer] Work Phone: P-R Interval 154 ms [facility] [employer] Work Phone: Q-T Interval 386 ms [facility] [employer] Work Phone: QRS Duration 102 ms [facility] Work Phone: QTc Calculation (Bazett) 440 ms [facility] [employer] Work Phone: R [place] 63 degrees Roberto De [facility] [employer] Work Phone: T [place] 19 degrees Roberto De Guzman [employer] Work Phone: Ventricular Rate 78 BPM Roberto jeffrey [employer] Work Phone: Roberto De Guzman [employer] Work Phone: EKG 12-LEADon 02-28-2024 EKG 12-LEAD 91 91 142 100 [phone] 25 Normal sinus rhythm Incomplete right bundle branch block Nonspecific T wave abnormality Abnormal ECG When compared with ECG of 28-FEB-2024 16:05, No significant change was found Confirmed by Arben Mercado ([id number]) on 02/28/2024 8:19:15 PM [email or web address] RetrieveTestByDateTime ?[id number]&D ate=28-02-2024&Time=20 %3a02%3a02%3a00&TestTy pe=ECG&Site=3&OutputTy pe=PDF&Ext=PDF Normal [facility] EKG 12-LEAD 78 78 154 102 386 440 56 63 19 Normal sinus rhythm Incomplete right bundle branch block Nonspecific ST and T wave abnormality Abnormal ECG No previous ECGs available Clinical correlation is indicated Confirmed by Arben Mercado ([id number]) on 02/28/2024 7:52:29 PM [email or web address] RetrieveTestByDateTime ?[id number]&D ate=28-02-2024&Time=16 %3a05%3a49%3a00&TestTy pe=ECG&Site=3&OutputTy pe=PDF&Ext=PDF Normal [facility] EKG Rhythm Stripon [employer] GFR, ESTIMATEDon 02-28-2024 GFR/1.73 sq M.predicted MDRD (S/P/Bld) [Vol rate/Area] 83 mL/min/{1.73_m2} Normal >60 [facility] Comment on above: Pediatric calculator link https://www.kidney.org/professionals/kdoqi/gfr_calculatorped [...] that affects renal tubular secretion. Performed at [facility] [address] [place] [address] Result Comment: Pedi atric calculator link https://www.kidney.org/professionals/kdoqi/gfr_calculatorped [...] MMP, LPBM2, CRBM2 #### [facility] [address] [facility] [address] INR Coag (PPP) [Relative kurt e]on 02-28-2024 [facility] Influenza virus A and B RNA and SARS-CoV-2 (COVID-19) N gene panel MARIKA+probe (Resp)on 02-28-2024 FLUAV RNA MARIKA+probe Ql (Resp) Not detected NOT DETECTED [facility] FLUBV RNA MARIKA+probe Ql (Resp) Not detected NOT DETECTED [facility] Comment on above: Performed at [facility] [address] [place] [address] SARS-CoV-2 (COVID-19) RNA MARIKA+probe Ql (Resp) Not detected NOT DETECTED [facility] Comment on above: Not [...] B in nasopharyngeal and nasal swab specimens. [facility] LDon 02-28-2024 LD 532 U/L High 100-190 [facility] Comment on above: Performed By: #### M MIC, LPBM2, CRBM2 #### [facility] [address] [facility] [address] Lactate Dehydrogenaseon 01-31 LDH Lactate to pyruvate reaction [Catalytic activity/Vol] 532 U/L High 100 - 190 U/L [facility] Comment on above: Performed at [facility] [address] [place] [address] MAGNESIUMon 02-28-2024 Magnesium [Mass/Vol] 2.3 mg/dL Normal 1.6-2.4 [facility] Comment on above: Performed By: #### C VFLU #### [facility] [employer] (ABAM) [address] [place] [address] MR Brain WO and W contrast I Von 02-28-2024 Radiology Study observation (narrative) [facility] Magnesiumon 02-28-2024 Magnesium [Mass/Vol] 2.3 mg/dL 1.6 - 2.4 mg/dL [facility] Comment on above: Performed at [facility] [address] [place] [address] Magnesium [Mass/Vol]on 02-27 [facility] No Panel Informationon 02-27 Interpretation and review of laboratory results Abnormal [facility] PROTHOMBIN TIMEon 02-28-2024 INR Coag (Bld) [Relative time] 1.13 {INR} Normal 0.85-1.13 [facility] Comment on above: Result Comment: ---- -----INDICATION INR Reference Range DVT, PE, AF, AMI, tissue heart valve 2.0 to 3.0 Mechanical prosthetic valves 2.5 to 3.5 Performed By: #### M MMP, LPBM2, CRBM2 #### [facility] [address] [facility] [address] Protime-INRon 02-28-2024 INR Coag (PPP) [Relative time] 1.13 {INR} 0.85 - 1.13 [facility] Comment on above: ---------INDICATION- INR Reference Range DVT, PE, AF, AMI, tissue heart valve 2.0 to 3.0 Mechanical prosthetic valves 2.5 to 3.5 Performed at [facility] [address] [place] [address] RETICULOCYTE PANELon 024 ABS RETIC COUNT 47.0 thou/mm3 Normal 20.0-115.0 [facility] Comment on above: Performed By: #### M MMP, LPBM2, CRBM2 #### [facility] [address] [facility] [address] IMM RETIC FRACTION 18.5 % High 2.3-13.4 [facility] Comment on above: Performed By: #### M MMP, LPBM2, CRBM2 #### [facility] [address] [facility] [address] RETIC HEMOGLOBIN 29.0 pg Normal 28.2-35.7 [facility] Comment on above: Performed By: #### M MMP, LPBM2, CRBM2 #### [facility] [address] [facility] [address] RETICULOCYTES 1.1 % Normal 0.5-2.0 [facility] Comment on above: Performed By: #### M MMP, LPBM2, CRBM2 #### [facility] [address] [facility] [address] Reticulocyteson 02-28-2024 Hemoglobin Auto (Reticulocytes) [Entitic mass] 29.0 pg 28.2 - 35.7 pg [facility] Comment on above: Performed at [facility] [employer] [facility] [address] [place] [address] Immature reticulocytes/Total reticulocytes (Bld) 18.5 % High 2.3 - 13.4 % [facility] Interpretation and review of laboratory results Abnormal [facility] Reticulocytes (Bld) [#/Vol] 47.0 10*3/uL [facility] Reticulocytes/100 RBC (Bld) 1.1 % 0.5 - 2.0 % [facility] SARS-COV-2 & INFLUENZA A/[facility] 02-28-2024 INFLUENZA A, RT-PCR Not detected Normal NOT DETECTED [facility] Comment on above: Performed By: #### C VFLU #### [address] [address] INFLUENZA B, RT-PCR Not detected Normal NOT DETECTED [facility] Comment on above: Performed By: #### C VFLU #### [address] [address] SARS-CoV-2 (COVID-19) RNA MARIKA+probe Ql (Unsp spec) Not detected Normal NOT DETECTED [facility] Comment on above: Result Comment: Not Detected [...] specimens. Performed By: #### C VFLU #### [facility] [employer] [address] [address] URIC ACIDon 02-28-2024 Urate [Mass/Vol] 7.6 mg/dL High 3.7-7.0 [facility] Comment on above: Performed By: #### M MMP, LPBM2, CRBM2 #### [facility] [address] [facility] [address] Uric Acidon 02-28-2024 Urate [Mass/Vol] 7.6 mg/dL High 3.7 - 7.0 mg/dL [facility] Comment on above: Performed at [facility] [address] [place] [address] VITAMIN B12 FOLATEon 024 Cobalamin (Vitamin B12) [Mass/Vol] 734 pg/mL Normal 211-911 [facility] Comment on above: Performed By: #### C DMITRY, SCAN1 #### [facility] [facility] [address] [place] [address] FOLATE 4.1 ng/mL Low 4.8-24.2 [facility] Comment on above: Performed By: #### C DMITRY, SCAN1 #### [place] [address] Vitamin B12 & Folateon 02-27 Cobalamin (Vitamin B12) [Mass/Vol] 734 pg/mL 211 - 911 pg/mL [facility] Folate [Mass/Vol] 4.1 ng/mL Low 4.8 - 24.2 ng/mL [facility] Comment on above: [place] [address] Interpretation and review of laboratory results Abnormal [facility] aPTT Coag (Bld) [Time]on aPTT Coag (PPP) [Time] 24.6 s [facility] Comment on above: Therapeutic Heparin Reference Range= 60-95 seconds (corresponds to 0.3 to 0.7 u/mL Anti-Xa factor activity) Performed at [address] 25-hydroxyvitamin D3 [Mass/V ol]on 02-27-2024 [facility] BLOOD SMEAR REVIEWon 024 PATHOLOGIST REVIEWED Estefnai FUNES [facility] Comment on above: Result Comment: No s chistocytes seen Performed By: #### C CANDY, WSR #### [address] [address] SMEAR REVIEWED BY PATHOLOGIST see below Normal [facility] Comment on above: Result Comment: See Below Performed By: #### C RP, WSR #### [facility] [address] [place] [address] C-REACTIVE PROTEINon 024 C-REACTIVE PROTEIN 6.83 mg/dl High 0.00-1.00 [facility] Comment on above: Performed By: #### C RP, WSR #### [facility] [address] [place] [address] C-Reactive Proteinon 024 CRP [Mass/Vol] 6.83 mg/dl High 0.00 - 1.00 mg/dl [facility] Comment on above: Performed at [facility] [address] [place] [address] CALCIUM (IONIZED) * WBon CALCIUM (IONIZED) * WB 1.11 mmol/L Low 1.12-1.32 [facility] Comment on above: Performed By: #### C BCWD, SCAN1 #### [address] [address] CREATININE (URINE)on Creatinine (U) [Mass/Vol] 37.4 mg/dL Normal [facility] Comment on above: Performed By: #### C RP, WSR #### [facility] [address] [place] [address] CRP [Mass/Vol]on 02-27-2024 Interpretation and review of laboratory results Abnormal [facility] Calcium, Ionizedon 4 Calcium.ionized ISE (Bld) [Moles/Vol] 1.11 mmol/L Low 1.12 - 1.32 mmol/L [facility] Comment on above: Performed at [facility] [address] [place] [address] Calcium.ionized ISE (Bld) [M oles/Vol]on 02-27-2024 Interpretation and review of laboratory results Abnormal [facility] Creatinine, Random Urineon 1 Creatinine (U) [Mass/Vol] 37.4 mg/dL [facility] Comment on above: Performed at [facility] [address] [place] [address] DRUG ABUSE SCREENon 02-27-20 24 AMPHETAMINE/METHAMP H Negative Normal NEGATIVE [facility] Comment on above: Performed By: #### C RP, WSR #### [facility] [address] [place] [address] BARBITURATE Negative Normal NEGATIVE [facility] Comment on above: Performed By: #### C RP, WSR #### [facility] [address] [facility] [place] [address] Benzodiazepines Ql (U) Negative Normal NEGATIVE [facility] Comment on above: Performed By: #### C RP, WSR #### [facility] [address] [facility] [place] [address] Cannabinoids Screen Ql (U) Positive Normal NEGATIVE [facility] Comment on above: Performed By: #### C RP, WSR #### [facility] [address] [place] [address] COCAINE METABOLITE Negative Normal NEGATIVE [facility] Comment on above: Performed By: #### C RP, WSR #### [facility] [address] [place] [address] FENTANYL Negative Normal NEGATIVE [facility] Comment on above: Result Comment: A N [...] By: #### C RP, WSR #### [facility] [address] [facility] [place] [address] Opiates Ql (U) Negative Normal NEGATIVE [facility] Comment on above: Performed By: #### C RP, WSR #### [facility] [address] [place] [address] OXYCODONE Negative Normal NEGATIVE [facility] Comment on above: Performed By: #### C RP, WSR #### [facility] [address] [place] [address] Phencyclidine Ql (U) Negative Normal NEGATIVE [facility] Comment on above: Performed By: #### C RP, WSR #### [facility] [address] [place] [address] EEG 24 houron 02-27-2024 Rm Davis MD 02/27/2024 11:51 AM LONG-TERM EEG-VIDEO MONITORING CLINICAL NEUROPHYSIOLOGY LABORATORY DEPARTMENT OF NEUROLOGY [facility] Patient: Ethan Donald Age: 33 y.o. Referring [...] mL IntraVENous PRN Jenny Gunter APRN - SANJU 0.9 % sodium chloride infusion IntraVENous PRN Jenny Gunter APRN - SANJU potassium chloride (KLOR-CON M) extended release tablet 40 mEq 40 mEq Oral PRN Jenny Gnuter APRN - CNP Or potassium bicarb-citric acid (EFFER-K) effervescent tablet 40 mEq 40 mEq Oral PRN Jenny Gunter APRN - SANJU magnesium sulfate 2000 mg in 50 mL IVPB premix 2,000 mg IntraVENous PRN Jenny Gunter APRN - CNP enoxaparin (LOVENOX) injection 40 mg 40 mg SubCUTAneous Daily Jenny Gunter APRN - MOBILE HOMES REPAIRER 40 mg at 02/27/24 0814 ondansetron (ZOFRAN-ODT) disintegrating tablet 4 mg 4 mg Oral Q8H PRN Jenny Gunter APRN - CNP Or ondansetron (ZOFRAN) injection 4 mg 4 mg IntraVENous Q6H PRN Jenny Gunter APRN - MOBILE HOMES REPAIRER 4 mg at 02/27/24 0815 polyethylene glycol (GLYCOLAX) packet 17 g 17 g Oral Daily PRN Jenny Gunter APRN - SANJU acetaminophen (TYLENOL) tablet 650 mg 650 mg Oral Q6H PRN Jenny Gunter, MACHINE OPERATOR FARMWORKER - MOBILE HOMES REPAIRER 650 mg at 02/27/24 0128 Or acetaminophen (TYLENOL) suppository 650 mg 650 mg Rectal Q6H PRN Lyric Jenny Ruthann MACHINE OPERATOR FARMWORKER - SANJU LORazepam (ATIVAN) injection 4 mg 4 mg IntraVENous Q5 Min PRN [employer] Ruthann MACHINE OPERATOR FARMWORKER - SANJU nicotine (NICODERM CQ) 14 MG/24HR 1 patch 1 patch TransDERmal Daily [employer] Ruthann MACHINE OPERATOR FARMWORKER - SANJU valproate (DEPACON) 1,500 mg in sodium chloride [...] revealed no abnormalities. RM DAVIS MD Diplomate, [place] [employer] and Neurology Diplomate, [place] Board of Clinical Neurophysiology Diplomate, [place] Board of Epilepsy Please note this is a preliminary report and updated daily. The final report will have a summary of behavior and electrographic findings with clinical correlation. [facility] EEG 24 hourOrdered By: Rm Dueñashad on 02-27-2024 [facility] Work Phone: EKG Rhythm Stripon 4 PACEART [facility] PACEART [facility] PACEART [facility] PACEART [facility] HR 78 PACEART [facility] ESR Westergren method (Bld) [Velocity]on 02-27-2024 ESR (Bld) [Velocity] 9 mm/h [facility] Comment on above: Performed at [facility] [address] [place] [address] [facility] FIBRINOGENon 02-27-2024 FIBRINOGEN 402 mg/100ml Normal 155-475 [facility] Comment on above: Performed By: #### C BCWD, SCAN1 #### [facility] [address] [place] [address] Fibrinogenon 02-27-2024 Fibrinogen Coag (PPP) [Mass/Vol] 402 mg/dL [facility] Comment on above: Performed at [facility] [address] [place] [address] Fibrinogen Coag (PPP) [Mass/ Vol]on 02-27-2024 [facility] No Panel Informationon 02-26 [facility] OSMOLALITY URINEon 4 OSMOLALITY URINE see below Normal 250-750 [facility] Comment on above: Result Comment: Test was sent to an outside laboratory. Please refer to 'Reference' test. Performed By: #### C RP, WSR #### [facility] [address] [place] [address] Osmolality (U) [Osmolality]o n 02-27-2024 [facility] Osmolality, urineon 02-27-20 24 Osmolality (U) [Osmolality] see below [facility] Comment on above: Test was sent to an outside laboratory. Please refer to 'Reference' test. Performed at [facility] [address] [place] [address] PHOSPHORUSon 02-27-2024 Phosphate [Mass/Vol] 4.0 mg/dL Normal 2.4-4.7 [facility] Comment on above: Performed By: #### C BCWD, SCAN1 #### [address] [address] POTASSIUM (URINE)on 02-27-20 POTASSIUM (URINE) 9.5 meq/l Normal [facility] Comment on above: Performed By: #### C RP, WSR #### [address] [address] Path Review, Smearon REVIEWED BY Tammi FUNES. [facility] Comment on above: No schistocytes seen Performed at [facility] [address] [place] [address] Smear Review see below [facility] Comment on above: See Below [facility] Phosphate [Mass/Vol]on 02-26 [facility] Phosphoruson 02-27-2024 Phosphate [Mass/Vol] 4.0 mg/dL 2.4 - 4.7 mg/dL [facility] Comment on above: Performed at [facility] [address] [place] [address] Potassium, urine, randomon 1 Potassium (U) [Moles/Vol] 9.5 mmol/L [facility] Comment on above: Performed at [facility] [address] [place] [address] REFERENCE SPECIMENon REFERENCE RANGE 50-1400 mOsm Normal [facility] TEST RESULT (WITH UNITS) 182 mOsm Normal [facility] ORIGINAL SAMPLE NUMBER [id number] Normal [facility] REFERENCE LOCATION see below Normal [facility] Comment on above: Result Comment: Perf ormed at [facility] [address] [place] [address] TEST(S) BEING PERFORMED URINE OSMO Normal [facility] Reference lab sampleon 02-26 ORIGINAL SAMPLE NUMBER [id number] [facility] [facility] REFERENCE LOCATION see below [facility] Comment on above: Performed at [facility] [address] [place] [address] Reference Range 50-1400 mOsm [facility] TEST RESULTS WITH UNITS 182 mOsm [facility] TEST(S) BEING PERFORMED URINE OSMO [facility] SED RATEon 02-27-2024 SED RATE 9 mm/hr Normal 0-10 [facility] Comment on above: Performed By: #### C CANDY, WSR #### [facility] [address] [place] [address] SODIUM (URINE)on 02-27-2024 Sodium (U) [Moles/Vol] mmol/L Normal [facility] Comment on above: Performed By: #### C RP, WSR #### [facility] [address] [place] [address] Sodium, urine, randomon 01-30 Sodium (U) [Moles/Vol] mmol/L meq/l [facility] Comment on above: Performed at [facility] [address] [place] [address] URINALYSIS W/ MICROon 2023 BACTERIA NONE SEEN Normal FEW/NONE SEEN [facility] Comment on above: Performed By: #### U AWM2 #### [facility] [address] [place] [address] CASTS NONE SEEN Normal NONE SEEN [facility] Comment on above: Performed By: #### U AWM2 #### [facility] [address] [place] [address] CASTS 2 NONE SEEN Normal [facility] Comment on above: Performed By: #### U AWM2 #### [facility] [address] [place] [address] Crystals LM Nom (Urine sed) NONE SEEN Normal NONE SEEN [facility] Comment on above: Performed By: #### U AWM2 #### [facility] [address] [place] [address] EPITHELIAL NONE SEEN Normal 3-5/hpf [facility] Comment on above: Performed By: #### U AWM2 #### [facility] [address] [place] [address] MISCELLANEOUS 2 NONE SEEN Normal [facility] Comment on above: Performed By: #### U AWM2 #### [facility] [address] [place] [address] RBC NONE SEEN Normal 0-2/hpf [facility] Comment on above: Performed By: #### U AWM2 #### [facility] [address] [facility] [place] [address] RENAL EPITHELIAL NONE SEEN Normal NONE SEEN [facility] Comment on above: Performed By: #### U AWM2 #### [facility] [address] [facility] [place] [address] WBC NONE SEEN Normal 0-4/hpf [facility] Comment on above: Performed By: #### U AWM2 #### [facility] [address] [facility] [place] [address] YEAST NONE SEEN Normal NONE SEEN [facility] Comment on above: Performed By: #### U AWM2 #### [facility] [address] [place] [address], [place] [address] Bilirubin Ql (U) Negative Normal NEGATIVE [facility] Comment on above: Performed By: #### U AWM2 #### [facility] [address] [place] [address] [place] [address] CHARACTER CLEAR Normal CLR-SL.CLOUD [facility] Comment on above: Performed By: #### U AWM2 #### [facility] [address] [place] [address], [place] [address] Color (U) YELLOW Normal YELLOW-STRAW [facility] Comment on above: Performed By: #### U AWM2 #### [facility] [address] [place] [address], [place] [address] Glucose Ql (U) Negative Normal NEGATIVE [facility] Comment on above: Performed By: #### U AWM2 #### [facility] [address] [facility] [place] [address] Hemoglobin Ql (U) Negative Normal NEGATIVE [facility] Comment on above: Performed By: #### U AWM2 #### [facility] [address] [place] [address], [place] [address] Ketones Ql (U) Negative Normal NEGATIVE [facility] Comment on above: Performed By: #### U AWM2 #### [facility] [address] [facility] [place] [address] LEUKOCYTES Negative Normal NEGATIVE [facility] Comment on above: Performed By: #### U AWM2 #### [facility] [address] [place] [address] Nitrite Ql (U) Negative Normal NEGATIVE [facility] Comment on above: Performed By: #### U AWM2 #### [address] [address] pH (U) 6.5 [pH] Normal 5.0 - 9.0 [facility] Comment on above: Performed By: #### U AWM2 #### [facility] [address] [place] [address] Protein Ql (U) Negative Normal NEGATIVE [facility] Comment on above: Performed By: #### U AWM2 #### [facility] [address] [place] [address] Specific gravity (U) [Rel density] 1.007 Normal 1.002-1.030 [facility] Comment on above: Performed By: #### U AWM2 #### [address] [address] Urobilinogen Qn (U) 1.0 {Butch'U}/dL Normal 0.0 - 1. 0 [facility] Comment on above: Performed By: #### U AWM2 #### [facility] [address] [address] Urinalysis dipstick W Reflex Microscopic panel (U)on 02-27-2024 Bacteria, UA NONE SEEN FEW/NONE SEEN [facility] Bilirubin Ql (U) Negative NEGATIVE [facility] Casts LM.LPF (Urine sed) [#/Area] NONE SEEN /lpf [facility] Character (U) CLEAR CLR-SL.CLOUD [facility] Charcoal LM Ql (Urine sed) NONE SEEN [facility] Comment on above: Performed at [facility] [address] [place] [address] Color (U) YELLOW YELLOW-STRAW [facility] Crystals LM Ql (Urine sed) NONE SEEN NONE SEEN [facility] Epithelial Cells, UA NONE SEEN 3-5/hpf /hpf [facility] Epithelial cells.renal LM.HPF (Urine sed) [#/Area] NONE SEEN NONE SEEN [facility]ungi.yeastlike LM Ql (Urine sed) NONE SEEN NONE SEEN [facility] Glucose Auto test strip Ql (U) Negative NEGATIVE mg/dl [facility] Hemoglobin Auto test strip Ql (U) Negative NEGATIVE [facility] Ketones Auto test strip Ql (U) Negative NEGATIVE [facility] Leukocyte esterase Auto test strip Ql (U) Negative NEGATIVE [facility] Nitrite Auto test strip Ql (U) Negative NEGATIVE [facility] pH (U) 6.5 [pH] 5.0 - 9.0 [facility] Protein (U) [Mass/Vol] Negative NEGATIVE mg/dl [facility] RBC LM.HPF (Urine sed) [#/Area] NONE SEEN 0-2/hpf /hpf [facility] Specific [place], UA 1.007 1.002 - 1.030 [facility] Urobilinogen, Urine 1.0 [facility] WBC LM.HPF (Urine sed) [#/Area] NONE SEEN 0-4/hpf /hpf [facility] Urine Drug Screenon 02-27-20 24 Amphetamines Screen Ql (U) Negative NEGATIVE [facility] Barbiturates Screen Ql (U) Negative NEGATIVE [facility] Benzodiazepines Ql (U) Negative NEGATIVE [facility] Benzoylecgonine Screen Ql (U) Negative NEGATIVE [facility] Cannabinoids Screen Ql (U) Positive NEGATIVE [facility] Fentanyl Negative NEGATIVE [facility] Comment on above: A Negative result [...] are for medical use only. Performed at [facility] [address] [place] [address] Opiates Screen Ql (U) Negative NEGATIVE [facility] Oxycodone Negative NEGATIVE [facility] Phencyclidine Ql (U) Negative NEGATIVE [facility] VITAMIN D TOTAL 25 (OH)on VITAMIN D TOTAL 25 (OH) 32 ng/ml Normal 30-100 [facility] Comment on above: Result Comment: Lashanda min D Status Range Deficiency <20 ng/ml Insuffiency 20-30 ng/ml Sufficiency 30-100 ng/ml Toxicity >100 ng/ml Performed By: #### C VFLU #### [facility] [address] [place] [address] Vitamin D 25 Hydroxyon 02-26 25-hydroxyvitamin D3 [Mass/Vol] 32 ng/mL 30 - 100 ng/ml [facility] Comment on above: Vitamin D Status Ran ge Deficiency <20 ng/ml Insuffiency 20-30 ng/ml Sufficiency 30-100 ng/ml Toxicity >100 ng/ml Performed at [facility] [address] [place] [address] Basic Metabolic Profon 02-25 Anion gap [Moles/Vol] 15 mmol/L Normal 9-16 [facility] Comment on above: Performed By: #### T MARY CHEN BMP #### [facility] [address] [place] [address] [place] [address] Resource Economist: Ramo Jesus MD BUN/CRE Ratio 11 Normal - [facility] Comment on above: Performed By: #### T MARY CHEN, BMP #### [facility] [address] [place] [address] Resource Economist: Ramo Jesus MD Calcium [Mass/Vol] 9.3 mg/dL Normal 8.6-10.4 [facility] Comment on above: Performed By: #### T MARY CHEN, BMP #### [facility] [address] [place] [address] Resource Economist: Ramo Jesus MD Chloride [Moles/Vol] 97 mmol/L Low 98-107 [facility] Comment on above: Performed By: #### T MARY CHEN, BMP #### [facility] [address] [place] [address] Resource Economist: Ramo Jesus MD CO2 [Moles/Vol] 23 mmol/L Normal 20-31 [facility] Comment on above: Performed By: #### MARY RODAS, BMP #### [facility] [address] [place] [address] Resource Economist: Ramo Jesus MD Creatinine [Mass/Vol] 1.2 mg/dL Normal 0.70-1.20 [facility] Comment on above: Performed By: #### T MARY CHEN, BMP #### [facility] [address] [place] [address] Resource Economist: Ramo Jesus MD GFR/1.73 sq M.predicted among non-blacks MDRD (S/P/Bld) [Vol rate/Area] 80 mL/min/{1.73_m2} Normal >60 [facility] Comment on above: Result Comment: These [...] T MARY CHEN, BMP #### [facility] [address] [place] [address] Resource Economist: Ramo Jesus MD Glucose [Mass/Vol] 100 mg/dL High 74-99 [facility] Comment on above: Performed By: #### T MARY CHEN, BMP #### [facility] [address] [place] [address] Resource Economist: Ramo Jesus MD Potassium [Moles/Vol] 3.3 mmol/L Low 3.7-5.3 [facility] Comment on above: Performed By: #### T MARY CHEN, BMP #### [facility] [address] [place], [place] [address] Resource Economist: Ramo Jesus MD Sodium [Moles/Vol] 135 mmol/L Low 136-145 [facility] Comment on above: Performed By: #### T MARY CHEN, BMP #### [facility] [address] [place] [address] Resource Economist: Ramo Jesus MD Urea nitrogen [Mass/Vol] 13 mg/dL Normal 6-20 [facility] Comment on above: Performed By: #### T MARY CHEN, BMP #### [address] [place] [address] Resource Economist: Ramo Jesus MD C-Reactive Proteinon 024 CRP [Mass/Vol] 81.9 mg/L High 0.0-5.0 [facility] Comment on above: Performed By: #### S ED, CRP #### [address] [place], [place] [address]83 Resource Economist: Ramo Jesus MD CBC with Diffon 02-26-2024 Abs. Basophil 0.04 k/uL Normal 0.0-0.2 [facility] Comment on above: Performed By: #### T MARY CHEN, BMP #### [facility] [address] [place] [address] [address] [place], [place] [id number] Resource Economist: Ramo Jesus MD Abs.Imm.Granulocyte 0.04 k/uL Normal 0.00-0.30 [facility] Comment on above: Performed By: #### T MARY CHEN, BMP #### [address] [place] [address] Resource Economist: Ramo Jesus MD Abs.Neutrophil (Seg) 2.58 k/uL Normal 1.50-8.10 [facility] Comment on above: Performed By: #### T MARY CHEN, BMP #### [facility] [address] [place] [address] Resource Economist: Ramo Jesus MD Basophils/100 WBC (Bld) 1 % Normal 0-2 [facility] Comment on above: Performed By: #### T GUSTAVO CDP, BMP #### [facility] [address] [place] [address] Resource Economist: Ramo Jesus MD Eosinophils (Bld) [#/Vol] 0.08 10*3/uL Normal 0.00-0.44 [facility] Comment on above: Performed By: #### MARY RODAS, BMP #### [address] [place] [address] Resource Economist: Ramo Jesus MD Eosinophils/100 WBC (Bld) 2 % Normal 1-4 [facility] Comment on above: Performed By: #### MARY RODAS, BMP #### [address] [place] [address] Resource Economist: Ramo Jesus MD Immature granulocytes/100 WBC (Bld) 1 % High 0 [facility] Comment on above: Performed By: #### MARY RODAS, BMP #### [address] [place] [address] Resource Economist: Ramo Jesus MD Lymphocytes (Bld) [#/Vol] 1.03 10*3/uL Low 1.10-3.70 [facility] Comment on above: Performed By: #### T MARY CHEN, BMP #### [facility] [address] [place] [id number] Resource Economist: Ramo Jesus MD Lymphocytes/100 WBC (Bld) 25 % Normal 24-43 [facility] Comment on above: Performed By: #### T GUSTAVO CDP, BMP #### [facility] [address] [place] [address] Resource Economist: Ramo Jesus MD Monocytes (Bld) [#/Vol] 0.33 10*3/uL Normal 0.10-1.20 [facility] Comment on above: Performed By: #### T GUSTAVO CDP, BMP #### [facility] [address] [place] [address] Resource Economist: Ramo Jesus MD Monocytes/100 WBC (Bld) 8 % Normal 3-12 [facility] Comment on above: Performed By: #### T MARY CHEN, BMP #### [facility] [address] [place] [address] Resource Economist: Ramo Jesus MD Morphology Gianni (Bld) [Interp] Normal Normal [facility] Comment on above: Performed By: #### T MARY CHEN, BMP #### [facility] [address] [place] [address] Resource Economist: Ramo Jesus MD Neutrophil (Seg) 63 % Normal 36-65 [facility] Comment on above: Performed By: #### T GUSTAVO CDP, BMP #### [address] [place] [address] Resource Economist: Ramo Jesus MD Platelet, Fluoresc. 117 k/uL Low 138-453 [facility] Comment on above: Performed By: #### T MARY CHEN, BMP #### [facility] [address] [place], [place] 9305483 Resource Economist: Ramo Jesus MD PLT, Immature Fract. 3.6 % Normal 1.1-10.3 [facility] Comment on above: Performed By: #### T GUSTAVO CDP, BMP #### [facility] [address] [place], [place] 4180383 Resource Economist: Ramo Jesus MD Erythrocyte distribution width (RBC) [Ratio] 12.0 % Normal 11.8-14.4 [facility] Comment on above: Performed By: #### MARY RODAS, BMP #### [address] [place], [place] [address] Resource Economist: Ramo Jesus MD Hematocrit (Bld) [Volume fraction] 41.0 % Normal 40.7-50.3 [facility] Comment on above: Performed By: #### MARY RODAS, BMP #### [address] [place], [place] [address] Resource Economist: Ramo Jesus MD Hemoglobin (Bld) [Mass/Vol] 14.7 g/dL Normal 13.0-17.0 [facility] Comment on above: Performed By: #### MARY RODAS, BMP #### [address] [place], [facility]83 Resource Economist: Ramo Jesus MD MCH (RBC) [Entitic mass] 31.1 pg Normal 25.2-33.5 [facility] Comment on above: Performed By: #### MARY RODAS, BMP #### [address] [place], [facility]83 Resource Economist: Ramo Jesus MD MCHC (RBC) [Mass/Vol] 35.9 g/dL High 28.4-34.8 [facility] Comment on above: Performed By: #### MARY RODAS, BMP #### [address] [place] [address] Resource Economist: Ramo Jesus MD MCV (RBC) [Entitic vol] 86.9 fL Normal 82.6-102.9 [facility] Comment on above: Performed By: #### MARY RODAS, BMP #### [address] [place] [address] Resource Economist: Ramo Jesus MD NRBC Automated 0.0 per 100 WBC Normal 0.0 [facility] Comment on above: Performed By: #### MARY RODAS, BMP #### [facility] [address] [place] [address] Resource Economist: Ramo Jesus MD Platelet Count See Reflexed IPF Result Normal 138-453 [facility] Comment on above: Performed By: #### MARY RODAS, BMP #### [facility] [address] [place] [address] Resource Economist: Ramo Jesus MD RBC (Bld) [#/Vol] 4.72 10*6/uL Normal 4.21-5.77 [facility] Comment on above: Performed By: #### MARY RODAS, BMP #### [facility] [address] [place] [address] Resource Economist: Ramo Jesus MD WBC (Bld) [#/Vol] 4.1 10*3/uL Normal 3.5-11.3 [facility] Comment on above: Performed By: #### MARY RODAS, BMP #### [facility] [address] [place] [address] Resource Economist: Ramo Jesus MD CT HEAD WO CONTRASTon [...] Sam Rockwell DO 02/26/24 Final result Normal [facility] CTA HEAD NECK W CONTRASTon 1 [...] Sam Rockwell DO 02/26/24 Final result Normal [facility] Glucose, Whole Bloodon 02-25 Glucose [Mass/Vol] 105 mg/dL High 74-100 [facility] Liver Profileon 02-26-2024 Albumin [Mass/Vol] 4.1 g/dL Normal 3.5-5.2 [facility] Comment on above: Performed By: #### L IVP ####[facility] [place] [address] lab Director: Ramo Jesus MD Albumin/Glob Ratio 1.3 Normal 1.0-2.5 [facility] Comment on above: Performed By: #### L IVP ####[address] [place] [address] Lab Director: Ramo Jesus MD Alkaline Phos 97 U/L Normal 40-129 [facility] Comment on above: Performed By: #### L IVP ####[address] , [place] [id number] Lab Director: Ramo Jesus MD ALT [Catalytic activity/Vol] 45 U/L Normal 10-50 [facility] Comment on above: Performed By: #### L IVP ####[address] , [place] [id number] Lab Director: Ramo Jessu MD AST [Catalytic activity/Vol] 54 U/L High 10-50 [facility] Comment on above: Performed By: #### L IVP ####[address] , [place] 33[address] Lab Director: Ramo Jesus MD Bilirubin [Mass/Vol] 1.1 mg/dL Normal 0.00-1.20 [facility] Comment on above: Performed By: #### L IVP ####[address] [place] [address] Lab Director: Ramo Jesus MD Bilirubin, Indirect 0.6 mg/dL Normal 0.0-1.0 [facility] Comment on above: Performed By: #### L IVP ####[address] , [place] 1044683 Lab Director: Ramo Jesus MD Bilirubin.indirect [Mass/Vol] 0.5 mg/dL High 0.00-0.30 [facility] Comment on above: Performed By: #### L IVP ####[address] , [place] 395[address]83 Lab Director: Ramo Jesus MD Protein [Mass/Vol] 7.2 g/dL Normal 6.6-8.7 [facility] Comment on above: Performed By: #### L IVP ####[address] , [place] 274[address]83 Lab Director: Ramo Jesus MD Prolactinon 02-26-2024 Prolactin 4.70 ng/mL Normal 4.04-15.2 [facility] Comment on above: Result Comment: The presence of macroprolactin may cause interference in female patients with various endocrinological diseases or during . Performed By: #### P ROL #### [facility] [address] [place], [place] [address] Resource Economist: Ra Kilpatrick MD Sedimentation Rateon 024 Sedimentation Rate 17 mm/Hr High 0-15 [facility] Comment on above: Performed By: #### S ED, CRP #### [address] [place], [place] 235[address]283 Resource Economist: Ramo Jesus MD Troponinon 02-26-2024 Troponin, High Sens 9 ng/L Normal 0-22 [facility] Comment on above: Result Comment: High Sensitivity Troponin values cannot be compared with other Troponin methodologies. Performed By: #### T ROPI, CDP, BMP #### [address] [place], [place] [address] Resource Economist: Ramo Jesus MD UA w/Reflex Cultureon 2023 Bilirubin, SemiQt,Ur Negative Normal NEG [facility] Comment on above: Performed By: #### ESDRAS FORD #### [address] [place], [place] 88[address]83 Resource Economist: Ramo Jesus MD Blood, Urine Negative Normal NEG [facility] Comment on above: Performed By: #### STEFANIE FORDO #### [facility] [address] [place] [address] Dr[address] [place], [place] 265[address]83 Resource Economist: Ramo Jesus MD Clarity (U) Clear Normal CLEAR [facility] Comment on above: Performed By: #### U AX, UMICAO #### [address] [place], [place] 677[address]83 Resource Economist: Ramo Jesus MD Color (U) Yellow Normal YEL [facility] Comment on above: Performed By: #### U AX, UMICAO #### [facility] [address] [place] [address] Dr. [place], [place] 6958583 Resource Economist: Ramo Jesus MD Glucose Ql (U) Negative Normal NEG [facility] Comment on above: Performed By: #### U AX, UMICAO #### [address] [place], [place] 2363383 Resource Economist: Ramo Jesus MD Ketones Ql (U) 2+ mg/dL Abnormal NEG [facility] Comment on above: Performed By: #### U AX, UMICAO #### [address] [place], [place] 648[address]83 Resource Economist: Ramo Jesus MD Leukocyte esterase Test strip Ql (U) Negative Normal NEG [facility] Comment on above: Performed By: #### U AX, UMICAO #### [address] [place], [place] 513[address] Resource Economist: Ramo Jesus MD Nitrite,Ur Negative Normal NEG [facility] Comment on above: Performed By: #### U AX, UMICAO #### [address] [place], [place] 5511183 Resource Economist: Ramo Jesus MD PH,Ur 6.0 Normal 5.0-9.0 [facility] Comment on above: Performed By: #### U AX, UMICAO #### [facility] [address] [place] [address] Dr. [place], [place] 4944283 Resource Economist: Ramo Jesus MD Protein Ql (U) Negative Normal NEG [facility] Comment on above: Performed By: #### U AX, UMICAO #### [facility] [address] [place], [place] 8[address]83 Resource Economist: Ramo Jesus MD Spec. [place],Ur 1.010 Normal 1.010-1.020 [facility] Comment on above: Performed By: #### U AX, UMICAO #### [facility] [address] [place], [place] 4090183 Resource Economist: Ramo Jesus MD Urobilinogen,Ur Normal Normal 0.0-1.0 [facility] Comment on above: Performed By: #### U AX UMICAO #### [address] [place], [place] 8318083 Resource Economist: Ramo Jesus MD Urinalysis,Microon 4 Bacteria TRACE Abnormal NONE [facility] Comment on above: Performed By: #### U AXROSANNAICAO ####[address] [place] [address] [facility] Director: Ramo Jesus MD Epithelial cells LM Ql (Urine sed) 0 TO 2 Normal 05 [facility] Comment on above: Performed By: #### U AX, UMICAO ####[address] , [place] [address] [facility] Director: Ramo Jesus MD Urine RBC's 0 TO 2 Normal 0-2 [facility] Comment on above: Performed By: #### U AX, UMICAO ####[address] , [place] 14[address]83 Lab Director: Ramo Jesus MD Urine WBC's 0 TO 2 Normal 0-5 [facility] Comment on above: Performed By: #### U AX, UMICAO ####[facility] [place] [address] lab Director: Ramo Jesus MD XR CHEST PORTABLEon 02-26-20 XR CHEST PORTABLE EXAMINATION: ONE XRAY VIEW OF THE CHEST 02/26/2024 1:06 pm COMPARISON: None. HISTORY: ORDERING SYSTEM PROVIDED HISTORY: syncope TECHNOLOGIST PROVIDED HISTORY: syncope 33-year-old male with syncope FINDINGS: AP portable view of the chest hall monitor leads overlie the chest Trachea midline. No pneumothorax. No acute focal airspace consolidation or pleural effusions. Cardiac and mediastinal contours within normal limits. No acute osseous abnormality. IMPRESSION: No acute focal airspace consolidation or effusions. Interpreted by: Rubio Suarez MD Signed by: Rubio Suarez MD 02/26/24 Final result Normal [facility] OPERATIVE REPORTon OPERATIVE REPORT [address] [address] OPERATIVE REPORT PATIENT NAME: ETHAN DONALD : 1990 MED REC NO: [id number] ROOM: ACCOUNT NO: [id number] ADMIT DATE: 03/13/2023 PROVIDER: Jon Reynoso DATE OF PROCEDURE: 03/13/2023 PREOPERATIVE DIAGNOSES: 1. Subluxing patella. 2. Chondromalacia. 3. Pangburn-Schlatter disease. POSTOPERATIVE DIAGNOSES: 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 PROCEDURES PERFORMED: Arthroscopy of right knee with: 1. Chondroplasty. 2. Lateral release. 3. Mini arthrotomy with excision of Pangburn-Schlatter ossicle. SURGEON: Dr. Jon Reynoso. ANESTHESIA: General. [...] tendon was then split longitudinally and the Pangburn--Schlatter ossicle was removed from the tendon. X-ray was obtained to verify that all the Pangburn--Schlatter ossicle had been removed. The tendon was then oversewn with 2-0 Vicryl interrupted [id number] sutures. Skin margins were injected with 0.5% [...] in two weeks. JON REYNOSO [id number] Doc#: [id number] CC: Normal [facility] XR KNEE RIGHT (1-2 VIEWS)on 03-13-2023 [...] Alfonso Charles MD 03/13/23 Final result Normal [facility] GROUP A STREP CULTUREon 07-30 S. pyogenes Ag Ql (Unsp spec) Culture Observations: NEGATIVE FOR GROUP A STREPTOCOCCUS. Normal [facility] Comment on above: Performed By: #### Ruthann SUÁREZ GRASTCX #### [facility] [address] [address] [address] Pratibha Stevenson STREPT SCREENon 08-11-2022 STREP SCREEN A Negative Normal NEGATIVE [facility] Comment on above: Performed By: #### Ruthann SUÁREZ GRASTCX #### [facility] [address] [address] [address] Pratibha Stevenson AMYLASEon 07-23-2022 Amylase [Catalytic activity/Vol] 50 U/L Normal 25-115 [facility] Comment on above: Performed By: #### E RUR #### [facility] [address] [address] [address] Pratibha Stevenson CBC AUTO DIFFon 07-23-2022 BASO # 0.1 103/ul Normal 0.0-0.1 [facility] Comment on above: Performed By: #### L ACT #### [facility] [address] [address] [address] Pratibha Stevenson Basophils/100 WBC (Bld) 1.0 % Normal 0.2-2.0 [facility] Comment on above: Performed By: #### L ACT #### [facility] [address] [address] [address] Pratibha Stevenson EO # 0.1 103/ul Normal 0.0-0.7 [facility] Comment on above: Performed By: #### L ACT #### [facility] [address] [place] [address] Dr. Pratibha Stevenson Eosinophils/100 WBC (Bld) 1.7 % Normal 0.9-7.0 [facility] Comment on above: Performed By: #### L ACT #### [facility] [address] [place] [address] Dr. Pratibha Stevenson Erythrocyte distribution width (RBC) [Ratio] 12.1 % Normal 11.0-15.0 [facility] Comment on above: Performed By: #### L ACT #### [facility] [address] [place] [address] Dr. Pratibha Stevenson Hematocrit (Bld) [Volume fraction] 45.9 % Normal 42.0-54.0 [facility] Comment on above: Performed By: #### L ACT #### [facility] [address] [place] [address] Dr. Pratibha Stevenson Hemoglobin (Bld) [Mass/Vol] 15.6 g/dL Normal 14.0-18.0 [facility] Comment on above: Performed By: #### L ACT #### [facility] [address] [place] [address] Dr. Pratibha Stevenson IG # 0.01 10e3/ul Normal 0.00-0.03 [facility] Comment on above: Performed By: #### L ACT #### [facility] [address] [place] [address] Dr. Pratibha Stevenson IG % 0.1 % Normal 0.0-0.5 [facility] Comment on above: Performed By: #### L ACT #### [facility] [address] [place] [address] Dr. Pratibha Stevenson LYMPH # 2.0 103/ul Normal 1.2-3.8 [facility] Comment on above: Performed By: #### L ACT #### [facility] [address] [place] [address] Dr. Pratibha Stevenson Lymphocytes/100 WBC (Bld) 28.8 % Normal 20.5-60.0 [facility] Comment on above: Performed By: #### L ACT #### [facility] [address] [place] [address] Dr. Pratibha Stevenson MANUAL DIFF REQ NO Normal [facility] Comment on above: Performed By: #### L ACT #### [facility] [address] [place] [address] Dr. Pratibha Stevenson MCH (RBC) [Entitic mass] 31.3 pg Normal 25.9-34.0 [facility] Comment on above: Performed By: #### L ACT #### [facility] [address] [place] [address] Dr. Pratibha Stevenson MCHC (RBC) [Mass/Vol] 34.0 g/dL Normal 29.9-35.2 [facility] Comment on above: Performed By: #### L ACT #### [facility] [address] [place] [address] Dr. Pratibha Stevenson MCV (RBC) [Entitic vol] 92.2 fL Normal 80.0-94.0 [facility] Comment on above: Performed By: #### L ACT #### [facility] [address] [place] [address] Dr. Pratibha Stevenson MONO # 0.3 103/ul Normal 0.3-0.8 [facility] Comment on above: Performed By: #### L ACT #### [facility] [address] [place] [address] Dr. Pratibha Stevenson Monocytes/100 WBC (Bld) 4.3 % Normal 1.7-12.0 [facility] Comment on above: Performed By: #### L ACT #### [facility] [address] [place] [address] Dr. Pratibha Stevenson NEUT # 4.5 103/ul Normal 1.4-6.5 [facility] Comment on above: Performed By: #### L ACT #### [facility] [address] [place] [address] Dr. Pratibha Stevenson Neutrophils/100 WBC (Bld) 64.1 % Normal 43.0-75.0 [facility] Comment on above: Performed By: #### L ACT #### [facility] [address] [place] [address] Dr. Pratibha Stevenson Platelet mean volume (Bld) [Entitic vol] 10.3 fL Normal 9.5-13.5 [facility] Comment on above: Performed By: #### L ACT #### [facility] [address] [place] [address] Dr. Pratibha Stevenson PLT 219 103/ul Normal 150-450 [facility] Comment on above: Performed By: #### L ACT #### [facility] [address] [place] [address] Dr. Pratibha Stevenson RBC 4.98 106/ul Normal 4.70-6.10 [facility] Comment on above: Performed By: #### L ACT #### [facility] [address] [place] [address] Dr. Pratibha Stevenson WBC 7.1 103/ul Normal 4.0-11.0 [facility] Comment on above: Performed By: #### L ACT #### [facility] [address] [place], [place] [address] Dr. Pratibha Stevenson CT ABD/PELV W CONon [...] YING WALTON Date: 2022-07-22 23:53 Normal [facility] DRUG SCREEN RAPID (URINE)on 07-23-2022 AMP Negative Normal NEGATIVE [facility] Comment on above: Performed By: #### E RUR #### [facility] [address] [place] [address] Dr. Pratibha Stevenson BAR Negative Normal NEGATIVE [facility] Comment on above: Performed By: #### E RUR #### [facility] [address] [place] [address] Dr. Pratibha Stevenson BUP Negative Normal NEGATIVE [facility] Comment on above: Performed By: #### E RUR #### [facility] [address] [place] [address] Dr. Pratibha Stevenson BZO Negative Normal NEGATIVE [facility] Comment on above: Performed By: #### E RUR #### [facility] [address] [place] [address] Dr. Pratibha Stevenson EMELY Negative Normal NEGATIVE [facility] Comment on above: Performed By: #### E RUR #### [facility] [address] [place] [address] Dr. Pratibha Stevenson CUT-OFFS SEE BELOW Normal [facility] Comment on above: Result Comment: AMP (Amphetamine): 500ng/mL, BAR (Barbituates): 200 ng/mL, BZO (Benzodiazepines): 150 ng/mL, BUP (Buprenorphine): 10 ng/mL, EMELY (Cocaine): 150 ng/mL, mAMP (Methamphetamine): 500 ng/mL, MTD (Methadone): 200 ng/mL, OPI (Opiates): 100 ng/mL, OXY (Oxycodone): 100 ng/mL, PCP (Phencyclidine): 25 ng/mL, PPX (Propoxyphene): 300 ng/mL, THC (Cannabinoids): 50 ng/mL, TCA (Trycyclic Antidepressants): 300 ng/mL Performed By: #### E RUR #### [facility] [address] [place] [address] Dr. Pratibha Stevenson DRUG CUT HEADER DRUG CLASS TEST SYST EM CUT-OFF CONCENTRATIONS ARE FOLLOWS: Normal [facility] Comment on above: Performed By: #### E RUR #### [facility] [address] [place] [address] Dr. Pratibha Stevenson mAMP Negative Normal NEGATIVE [facility] Comment on above: Performed By: #### E RUR #### [facility] [address] [place] [address] Dr. Pratibha Stevenson MTD Negative Normal NEGATIVE [facility] Comment on above: Performed By: #### E RUR #### [facility] [address] [place] [address] Dr. Pratibha Stevenson OPI Positive Abnormal NEGATIVE [facility] Comment on above: Performed By: #### E RUR #### [facility] [address] [place] [address] Dr. Pratibha Stevenson OXY Negative Normal NEGATIVE [facility] Comment on above: Performed By: #### E RUR #### [facility] [address] [place] [address] Dr. Pratibha Stevenson PCP Negative Normal NEGATIVE [facility] Comment on above: Performed By: #### E RUR #### [facility] [address] [place] [address] Dr. Pratibha Stevenson PPX Negative Normal NEGATIVE [facility] Comment on above: Performed By: #### E RUR #### [facility] [address] [place] [address] Dr. Pratibha Stevenson TCA Positive Abnormal NEGATIVE [facility] Comment on above: Performed By: #### E RUR #### [facility] [address] [place] [address] Dr. Pratibha Stevenson THC Positive Abnormal NEGATIVE [facility] Comment on above: Performed By: #### E RUR #### [facility] [address] [place] [address] Dr. Pratibha Stevenson ER URINE PROFILEon 3 Bilirubin Ql (U) Negative Normal NEGATIVE [facility] Comment on above: Performed By: #### E RUR #### [facility] [address] [place] [address] Dr. Pratibha Stevenson Clarity (U) CLEAR Normal CLEAR [facility] Comment on above: Performed By: #### E RUR #### [facility] [address] [place] [address] Dr. Pratibha Stevesnon Color (U) LT. YELLOW Normal YELLOW [facility] Comment on above: Performed By: #### E RUR #### [facility] [address] [place] [address] Dr. Pratibha DONALDSONRanjan A micrscopic examination will be performed if indicated. Normal [facility] Comment on above: Performed By: #### E RUR #### [facility] [address] [place] [address] Dr. Pratibha Stevenson Glucose Ql (U) Negative Normal NEGATIVE [facility] Comment on above: Performed By: #### E RUR #### [facility] [address] [place] [address] Dr. Pratibha Stevenson Hemoglobin Ql (U) Negative Normal NEGATIVE [facility] Comment on above: Performed By: #### E RUR #### [facility] [address] [place] [address] Dr. Pratibha Stevenson Ketones Ql (U) Negative Normal NEGATIVE [facility] Comment on above: Performed By: #### E RUR #### [facility] [address] [place] [address] Dr. Pratibha Stevenson LEUKOCYTES Negative Normal NEGATIVE [facility] Comment on above: Performed By: #### E RUR #### [facility] [address] [place] [address] Dr. Pratibha Stevenson Nitrite Ql (U) Negative Normal NEGATIVE [facility] Comment on above: Performed By: #### E RUR #### [facility] [address] [place] [address] Dr. Pratibha Stevenson pH (U) 5.5 [pH] Normal 5-9 [facility] Comment on above: Performed By: #### E RUR #### [facility] [address] [place] [address] Dr. Pratibha Stevenson SPEC GRAVITY <=1.005 Abnormal 1.005-<=1.025 [facility] Comment on above: Performed By: #### E RUR #### [facility] [address] [place] [address] Dr. Pratibha Stevenson UA PROTEIN Negative Normal NEGATIVE/ TRACE [facility] Comment on above: Performed By: #### E RUR #### [facility] [address] [place] [address] Dr. Pratibha Stevenson UR MICRO IND NOT INDICATED Normal [facility] Comment on above: Performed By: #### E RUR #### [facility] [address] [place] [address] Dr. Pratibha Stevenson Urobilinogen Qn (U) 0.2 {Butch'U}/dL Normal 0.2 - 1. 0 [facility] Comment on above: Performed By: #### E RUR #### [facility] [address] [place] [address] Dr. Pratibha Stevenson LIPASEon 07-23-2022 Lipase [Catalytic activity/Vol] 126.0 U/L Normal 73.0-393.0 [facility] Comment on above: Performed By: #### E RUR #### [facility] [address] [address] [address] Pratibha Stevenson PROF 14(COMP METB)on 023 Albumin [Mass/Vol] 4.2 g/dL Normal 3.4-5.0 [facility] Comment on above: Performed By: #### E RUR #### [facility] [address] [place] [address] Dr. Pratibha Stevenson Albumin/Globulin [Mass ratio] 1.4 {ratio} Normal [facility] Comment on above: Performed By: #### E RUR #### [facility] [address] [place] [address] Dr. Pratibha Stevenson ALP [Catalytic activity/Vol] 87 U/L Normal 46-116 [facility] Comment on above: Performed By: #### E RUR #### [facility] [address] [place] [address] Dr. Pratibha Stevenson ALT [Catalytic activity/Vol] 20 U/L Normal 16-63 [facility] Comment on above: Performed By: #### E RUR #### [facility] [address] [place] [address] Dr. Pratibha Stevenson Anion gap [Moles/Vol] 12.8 mmol/L Normal [facility] Comment on above: Performed By: #### E RUR #### [facility] [address] [place] [address] Dr. Pratibha Stevenson AST [Catalytic activity/Vol] 18 U/L Normal 15-37 [facility] Comment on above: Performed By: #### E RUR #### [facility] [address] [place] [address] Dr. Pratibha Stevenson Bilirubin [Mass/Vol] 0.5 mg/dL Normal 0.2-1.0 [facility] Comment on above: Performed By: #### E RUR #### [facility] [address] [place] [address] Dr. Pratibha Stevenson Calcium [Mass/Vol] 9.2 mg/dL Normal 8.5-10.1 [facility] Comment on above: Performed By: #### E RUR #### [facility] [address] [address] [address] Pratibha Stevenson Chloride [Moles/Vol] 101 mmol/L Normal 98-107 [facility] Comment on above: Performed By: #### E RUR #### [facility] [address] [address] [address] Pratibha Stevenson CO2 [Moles/Vol] 24.7 mmol/L Normal 21.0-32.0 [facility] Comment on above: Performed By: #### E RUR #### [facility] [address] [address] [address] Pratibha Stevenson Creatinine [Mass/Vol] 1.20 mg/dL Normal 0.70-1.30 [facility] Comment on above: Performed By: #### E RUR #### [facility] [address] [place] [address] Dr. Pratibha Stevenson EGFR-AF CITIZEN [place] >60 Normal >=60 [facility] Comment on above: Performed By: #### E RUR #### [facility] [address] [place] [address] Dr. Pratibha Stevenson EGFR-NON AF CITIZEN [place] >60 Normal >=60 [facility] Comment on above: Performed By: #### E RUR #### [facility] [address] [place] [address] Dr. Pratibha Stevenson Globulin (S) [Mass/Vol] 3.1 g/dL Normal [facility] Comment on above: Performed By: #### E RUR #### [facility] [address] [place] [address] Dr. Pratibha Stevenson Glucose [Mass/Vol] 128 mg/dL Critically high 74-106 [facility] Comment on above: Performed By: #### E RUR #### [facility] [address] [place] [address] Dr. Pratibha Stevenson Potassium [Moles/Vol] 3.5 mmol/L Normal 3.5-5.1 [facility] Comment on above: Performed By: #### E RUR #### [facility] [address] [address] [address] Pratibha Stevenson Protein [Mass/Vol] 7.3 g/dL Normal 6.4-8.2 [facility] Comment on above: Performed By: #### E RUR #### [facility] [address] [address] [address] Pratibha Stevenson Sodium [Moles/Vol] 135 mmol/L Critically low 136-145 [facility] Comment on above: Performed By: #### E RUR #### [facility] [address] [address] [address] Pratibha Stevenson Urea nitrogen [Mass/Vol] 10.0 mg/dL Normal 7.0-18.0 [facility] Comment on above: Performed By: #### E RUR #### [facility] [address] [address] [address] Pratibha Stevenson Urea nitrogen/Creatinine [Mass ratio] 8.3 mg/mg Normal [facility] Comment on above: Performed By: #### E RUR #### [facility] [address] [address] [address] Pratibha Stevenson Screenson 07-22-2022 Screens [id number]. 00CD:127 Normal [facility] Screens [id number]#1. 00CD:127 Normal [facility] Patient Educationon 07-22-19 Patient Education [...] Rhubarb. ? Beets. ? Potato chips and qatari fries. ? Nuts. ? If you regularly take a diuretic medicine, make sure to eat at least 1?2 fruits or vegetables high in potassium each day. These include: ? Avocado. ? Banana. ? [place], prune, carrot, or tomato juice. ? Baked [...] content not included)... Normal [facility] Urology Office/Clinic Noteon 07-21-2022 Urology Office/Clinic Note Chief Complaint pt here for a hospital f/u for kidney stones HPI Staff Pt is a 31 yr old Male here today for a hospital f/u from [facility] for a kidney stone. CT scan done 07/20/22 shows Bilateral nonobstructive renal calculi. No hydronephrosis or hydroureter hepatomegaly. Pts previous DX: kidney stone, ureteral stone. IPSS 26. Pt states he started feeling pain on Monday in the right upper back area and presented to the ER on Monday. Pt had CT scans done at [facility]. Pt states the pain is now moving [...] of urinary calculi) Urology consult 05/08/22 at [facility] due to 4-5 mm Ureteral Stone [...] calculus (05/08/2022) (more content not included)... Normal [facility] Comment on above: Result Comment: Elec tronically Signed By: Shirley Murrell MD\.br\Date and Time Signed: 07/21/22 16:55 EDT\.br\Electronically Co-Signed By: Shalini Macias\.br\Date and Time Co-Signed: 07/21/22 09:40 EDT CBC AUTO DIFFon 07-20-2022 BASO # 0.1 103/ul Normal 0.0-0.1 [facility] Comment on above: Performed By: #### C BC #### [facility] [address] [place] [address] Dr. Pratibha Stevenson Basophils/100 WBC (Bld) 0.7 % Normal 0.2-2.0 [facility] Comment on above: Performed By: #### C BC #### [facility] [address] [place] [address] Dr. Pratibha Stevenson EO # 0.2 103/ul Normal 0.0-0.7 [facility] Comment on above: Performed By: #### C BC #### [facility] [address] [place] [address] Dr. Pratibha Stevenson Eosinophils/100 WBC (Bld) 2.4 % Normal 0.9-7.0 [facility] Comment on above: Performed By: #### C BC #### [facility] [address] [place] [address] Dr. Pratibha Stevenson Erythrocyte distribution width (RBC) [Ratio] 12.4 % Normal 11.0-15.0 [facility] Comment on above: Performed By: #### C BC #### [facility] [address] [place] [address] Dr. Pratibha Stevenson Hematocrit (Bld) [Volume fraction] 45.8 % Normal 42.0-54.0 [facility] Comment on above: Performed By: #### C BC #### [facility] [address] [place] [address] Dr. Pratibha Stevenson Hemoglobin (Bld) [Mass/Vol] 15.6 g/dL Normal 14.0-18.0 [facility] Comment on above: Performed By: #### C BC #### [facility] [address] [place] [address] Dr. Pratibha Stevenson IG # 0.03 10e3/ul Normal 0.00-0.03 [facility] Comment on above: Performed By: #### C BC #### [facility] [address] [place] [address] Dr. Pratibha Stevenson IG % 0.4 % Normal 0.0-0.5 [facility] Comment on above: Performed By: #### C BC #### [facility] [address] [place] [address] Dr. Pratibha Stevenson LYMPH # 3.0 103/ul Normal 1.2-3.8 [facility] Comment on above: Performed By: #### C BC #### [facility] [address] [place] [address] Dr. Pratibha Stevenson Lymphocytes/100 WBC (Bld) 34.7 % Normal 20.5-60.0 [facility] Comment on above: Performed By: #### C BC #### [facility] [address] [place] [address] Dr. Pratibha Stevenson MANUAL DIFF REQ NO Normal [facility] Comment on above: Performed By: #### C BC #### [facility] [address] [place] [address] Dr. Pratibha Stevenson MCH (RBC) [Entitic mass] 31.3 pg Normal 25.9-34.0 [facility] Comment on above: Performed By: #### C BC #### [facility] [address] [place] [address] Dr. Pratibha Stevenson MCHC (RBC) [Mass/Vol] 34.1 g/dL Normal 29.9-35.2 [facility] Comment on above: Performed By: #### C BC #### [facility] [address] [place] [address] Dr. Pratibha Stevenson MCV (RBC) [Entitic vol] 92.0 fL Normal 80.0-94.0 [facility] Comment on above: Performed By: #### C BC #### [facility] [address] [place] [address] Dr. Pratibha Stevenson MONO # 0.5 103/ul Normal 0.3-0.8 [facility] Comment on above: Performed By: #### C BC #### [facility] [address] [place] [address] Dr. Pratibha Stevenson Monocytes/100 WBC (Bld) 5.9 % Normal 1.7-12.0 [facility] Comment on above: Performed By: #### C BC #### [facility] [address] [place] [address] Dr. Pratibha Stevenson NEUT # 4.8 103/ul Normal 1.4-6.5 [facility] Comment on above: Performed By: #### C BC #### [facility] [address] [place] [address] Dr. Pratibha Stevenson Neutrophils/100 WBC (Bld) 55.9 % Normal 43.0-75.0 [facility] Comment on above: Performed By: #### C BC #### [facility] [address] [place] [address] Dr. Pratibha Stevenson Platelet mean volume (Bld) [Entitic vol] 10.0 fL Normal 9.5-13.5 [facility] Comment on above: Performed By: #### C BC #### [facility] [address] [place], [place] [address] Dr. Pratibha Stevenson PLT 243 103/ul Normal 150-450 [facility] Comment on above: Performed By: #### C BC #### [facility] [address] [place], [place] [address] Dr. Pratibha Stevenson RBC 4.98 106/ul Normal 4.70-6.10 [facility] Comment on above: Performed By: #### C BC #### [facility] [address] [place], [place] [address] Dr. Pratibha Stevenson WBC 8.5 103/ul Normal 4.0-11.0 [facility] Comment on above: Performed By: #### C BC #### [facility] [address] [place] [address] [address] ABD/PELVIS WO CONon [...] ROSALINO VIDALES Date: 2022-07-20 04:12 Normal [facility] URINE PROFILEon 3 Bilirubin Ql (U) Negative Normal NEGATIVE [facility] Comment on above: Performed By: #### L ACT #### [facility] [address] [address] [address] Pratibha Stevenson Clarity (U) CLEAR Normal CLEAR [facility] Comment on above: Performed By: #### L ACT #### [facility] [address] [address] [address] Pratibha Stevenson Color (U) LT. YELLOW Normal YELLOW [facility] Comment on above: Performed By: #### L ACT #### [facility] [address] [place] [address] Dr. Pratibha RIOS A micrscopic examination will be performed if indicated. Normal [facility] Comment on above: Performed By: #### L ACT #### [facility] [address] [place] [address] Dr. Pratibha Stevenson Glucose Ql (U) Negative Normal NEGATIVE [facility] Comment on above: Performed By: #### L ACT #### [facility] [address] [place] [address] Dr. Pratibha Stevenson Hemoglobin Ql (U) Negative Normal NEGATIVE [facility] Comment on above: Performed By: #### L ACT #### [facility] [address] [place] [address] Dr. Pratibha Stevenson Ketones Ql (U) Negative Normal NEGATIVE [facility] Comment on above: Performed By: #### L ACT #### [facility] [address] [place] [address] Dr. Pratibha Stevenson LEUKOCYTES Negative Normal NEGATIVE [facility] Comment on above: Performed By: #### L ACT #### [facility] [address] [place] [address] Dr. Pratibha Stevenson Nitrite Ql (U) Negative Normal NEGATIVE [facility] Comment on above: Performed By: #### L ACT #### [facility] [address] [place] [address] Dr. Pratibha Stevenson pH (U) 6.0 [pH] Normal 5-9 [facility] Comment on above: Performed By: #### L ACT #### [facility] [address] [place], [place] [address] Dr. Pratibha Stevenson SPEC GRAVITY <=1.005 Abnormal 1.005-<=1.025 [facility] Comment on above: Performed By: #### L ACT #### [facility] [address] [place] [address] Dr. Pratibha Stevenson UA PROTEIN Negative Normal NEGATIVE/ TRACE [facility] Comment on above: Performed By: #### L ACT #### [facility] [address] [place] [address] Dr. Pratibha Stevenson UR MICRO IND NOT INDICATED Normal [facility] Comment on above: Performed By: #### L ACT #### [facility] [address] [place] [address] Dr. Pratibha Stevenson Urobilinogen Qn (U) 0.2 {Butch'U}/dL Normal 0.2 - 1. 0 [facility] Comment on above: Performed By: #### L ACT #### [facility] [address] [place] [address] Dr. Pratibha Stevenson LACTATE/LACTIC ACIDon 2022 Lactate [Moles/Vol] 0.8 mmol/L Normal 0.4-2.0 [facility] Comment on above: Performed By: #### L ACT #### [facility] [address] [place] [address] Dr. Pratibha Stevenson PROF 14(COMP METB)on 023 Albumin [Mass/Vol] 4.3 g/dL Normal 3.4-5.0 [facility] Comment on above: Performed By: #### E RUR #### [facility] [address] [place] [address] Dr. Pratibha Stevenson Albumin/Globulin [Mass ratio] 1.3 {ratio} Normal [facility] Comment on above: Performed By: #### E RUR #### [facility] [address] [place] [address] Dr. Pratibha Stevenson ALP [Catalytic activity/Vol] 94 U/L Normal 46-116 [facility] Comment on above: Performed By: #### E RUR #### [facility] [address] [place] [address] Dr. Pratibha Stevenson ALT [Catalytic activity/Vol] 23 U/L Normal 16-63 [facility] Comment on above: Performed By: #### E RUR #### [facility] [address] [place] [address] Dr. Pratibha Stevenson Anion gap [Moles/Vol] 10.5 mmol/L Normal [facility] Comment on above: Performed By: #### E RUR #### [facility] [address] [address] [address] Pratibha Stevenson AST [Catalytic activity/Vol] 21 U/L Normal 15-37 [facility] Comment on above: Performed By: #### E RUR #### [facility] [address] [place] [address] Dr. Pratibha Stevenson Bilirubin [Mass/Vol] 0.5 mg/dL Normal 0.2-1.0 [facility] Comment on above: Performed By: #### E RUR #### [facility] [address] [place] [address] Dr. Pratibha Stevenson Calcium [Mass/Vol] 9.3 mg/dL Normal 8.5-10.1 [facility] Comment on above: Performed By: #### E RUR #### [facility] [address] [place] [address] Dr. Pratibha Stevenson Chloride [Moles/Vol] 102 mmol/L Normal 98-107 [facility] Comment on above: Performed By: #### E RUR #### [facility] [address] [place] [address] Dr. Pratibha Stevenson CO2 [Moles/Vol] 26.2 mmol/L Normal 21.0-32.0 [facility] Comment on above: Performed By: #### E RUR #### [facility] [address] [place] [address] Dr. Pratibha Stevenson Creatinine [Mass/Vol] 1.18 mg/dL Normal 0.70-1.30 [facility] Comment on above: Performed By: #### E RUR #### [facility] [address] [place] [address] Dr. Pratibha Stevenson EGFR-AF [place]IZ[place] >60 Normal >=60 [facility] Comment on above: Performed By: #### E RUR #### [facility] [address] [place] [address] Dr. Pratibha Stevenson EGFR-NON AF CITIZEN [place] >60 Normal >=60 [facility] Comment on above: Performed By: #### E RUR #### [facility] [address] [place] [address] Dr. Pratibha Stevenson Globulin (S) [Mass/Vol] 3.2 g/dL Normal [facility] Comment on above: Performed By: #### E RUR #### [facility] [address] [place] [address] Dr. Pratibha Stevenson Glucose [Mass/Vol] 115 mg/dL Critically high 74-106 T [facility] Comment on above: Performed By: #### E RUR #### [facility] [address] [place] [address] Dr. Pratibha Stevenson Potassium [Moles/Vol] 3.7 mmol/L Normal 3.5-5.1 [facility] Comment on above: Performed By: #### E RUR #### [facility] [address] [place] [address] Dr. Pratibha Stevenson Protein [Mass/Vol] 7.5 g/dL Normal 6.4-8.2 [facility] Comment on above: Performed By: #### E RUR #### [facility] [address] [place] [address] Dr. Pratibha Stevenson Sodium [Moles/Vol] 135 mmol/L Critically low 136-145 Th [facility] Comment on above: Performed By: #### E RUR #### [facility] [address] [place] [address] Dr. Pratibha Stevenson Urea nitrogen [Mass/Vol] 11.0 mg/dL Normal 7.0-18.0 [facility] Comment on above: Performed By: #### E RUR #### [facility] [address] [place] [address] Dr. Pratibha Stevenson Urea nitrogen/Creatinine [Mass ratio] 9.3 mg/mg Normal [facility] Comment on above: Performed By: #### E RUR #### [facility] [address] [address] [address] Pratibha Stevenson TROPONIN, HIGH SENSITIVITYon 07-20-2022 HSTROP 5.0 pg/mL Normal 4.0-76.1 [facility] Comment on above: Result Comment: CUT- OFF POINTS HAVE BEEN ESTABLISHED BASED ON THE FOURTH UNIVERSAL DEFINITIONS OF MYOCARDIAL INFARCTION. THE UPPER REFERENCE LIMIT (URL) OF TROPONIN, DEFINED THE 99TH PERCENTILE OF cTnI DISTRIBUTION IN A REFERENCE POPULATION, HAS BEEN CONFIRMED THE DECISION THRESHOLD FOR [place] DIAGNOSIS. Performed By: #### E RUR #### [facility] [address] [id number] Pratibha Stevenson Formson 07-15-2022 Forms [id number]#1.0 0CD:127 Normal [facility] Screenson 07-15-2022 Screens [id number] 0CD:127 Normal [facility] Screens [id number] 0CD:127 Normal [facility] Patient Educationon 07-14-19 Patient Education [...] Rhubarb. ? Beets. ? Potato chips and qatari fries. ? Nuts. ? If you regularly take a diuretic medicine, make sure to eat at least 1?2 fruits or vegetables high in potassium each day. These include: ? Avocado. ? Banana. ? [place], prune, carrot, or tomato juice. ? Baked [...] Spencer loco (more content not included)... Normal [facility] Urology Office/Clinic Noteon 03-15-2023 Urology Office/Clinic Note Chief Complaint Pt is here for PO stent removal HPI Staff Ethan is a 31 y.o. male new patient here for [facility] ER follow up. Urology consult done 05/08/22 @ [facility] due to 4-5mm Ureteral Stone. [...] yo male new patient following up to [facility] ER. IPSS 13. MARGOTH 14. 1. Ureteral stone (N20.1: Calculus of ureter) Urology consult 05/08/22 at [facility] due to 4-5 mm Ureteral Stone [...] Follow-up With When Contact Information Handy WILEY, Shilrey Menchaca, URL, URO Additional Instructions: 6 mos, [...] 12/26/1997 Recor (more content not included)... Normal [facility] Comment on above: Result Comment: Elec tronically Signed By: Handy WILEY, Shirley Menchaca\.br\Date and Time Signed: 07/13/22 16:53 EDT\.br\Electronically Co-Signed By: Shalini Macias\.br\Date and Time Co-Signed: 07/13/22 10:29 EDT RAD - MISCon 07-11-2022 RAD - MISC [id number] 0CD:127 Normal [facility] RAD - Ultrasound Reporton RAD - Ultrasound Report [id number]#1.0 0CD:127 Normal [facility] US KIDNEYSon 07-06-2022 US KIDNEYS [...] by: RAMO BLAKE Date: 2022-07-06 11:14 Normal [facility] XR KUB 1 VIEWon 07-06-2022 XR KUB [...] SAUMYA MARSH Date: 2022-07-06 11:57 Normal [facility] Coding Summary.on 05-30-2022 Coding Summary. CD:[id number] Gh 0bWw+PGhlYWQ+EY7WBKEqF 57nlXLfjC2KN5wDKR7CWNI UBTUIGF5GVB4euIJ4ZFbsK 2VybiAv LmrxcGXbNE63JUa8DXN8tU eaBTgbdN2doURyI3n9XjCe LC03vU36PNrmIIRwTuQ6Gb ZpbjsgbWFy Q2sqUwWdwSAaXsm+PHRhYm xlIHdpZHRoPScxMDAlJyBz aRhwKT9jVi6dRCUmIKLoiI xhcHNlOiBj z7hxSISvMHzdLH2hmTqyX7 JoeIC0FYIwb6v1Ar16lDS+ BPMmHYE4aGekUHoqb969Dn Iam2ypUZN8 sVZfZIeiBQF1U83vf2Z0JJ ShYHSnMAC8mAT5jH0wyRoz hjozG3JktZIsLzT4QTK3jL UwzN6vwEil yzdoaB1pKky+Y85EDF4EEJ HSCF4LQrg6H9UaOfrmsMR+ IX30NCNlKB52vFVfvXAld1 hgyNk4OqNh GGFoCFU7vHedBQgti2LgPI IwC41thVMnj9D8YROhvAad qQNlVfFtfBZ3fJ3tPAimsd uii9oossgk Pcucs7nwcn86jQ77L43yBS wuOGMrMXQ5ZAXkKLVreMyc hk2lqG0eZi6+BQpwm6zek9 uphFa8YyMe IEDdthKjxDgwMKW6x3DiWi 18G2AygKtei0DyGfd0ib65 tUHwh0E6lCF5DOovQNTtkQ 4iZVlqLkB8 FGFwNdGgoB22rVReAHizTx 3mwCrskQbcDM8rLGCnufqg DBUadD1vJLQtfPTsqMglDE 4wNTBpbjtm l138PrEpKNV1WEBuvHDtG3 VvtG1kBhBaMTMzKSOeW6Cu wFBhETmdZ375HZtxGuV7LG DnjxGpX4Sk HNFgwMjmFlF1d9D3Vt0Xz8 ZxfmfuPPN8VRmfSUJoInHc UgTpTeM3A5RuMgk6GYLhaZ nsNN8pZ7Py EIWbapwgqzuevTJ6CCFcUP PgfZ83pZNlGQnjGp3zx2J6 z386VZIiJCXgsB89Cv8fyT ogMTBwdCBU rN6kkiqai1totvrkHnBeRV KzTSp0SWi1YLMcfOptDfIv TAH8JhD9ZBY9bJEyjL8jfW nwefkwjY6k Oyc+M80ksC2pJPZ4JBE4ie keANTdflGkDO08TY49R0Aq PjwvdGFibGU+PGRpdiBzdH ixHX6kPzLw r5iph1ZpYQhiW1ZnBGAuPB gyUgx7FFCxXRU8xSD3hZ2v JZQhLNrog1J6rSQ5H4Hyse Kigj4sf5ad NJSrEMtuY99iiAExw7B7DS UibKO8APLatBdjJmLtzL73 Oyc+RUMjhMkhf6JrLqcpi9 mwb2sctEp6 XwRzSLPdcvDksDisOUM1a4 TxIt33D02vUBgaBSHkOLYn AADsHPUefPzmzq0daC3lRu 8+PGNvbCB3 pQZ8wH2dWJDeGbL8HSzdW6 78KkSirURnYsujt2eiu2nn jYt1BcFjIZTnwyGnrUwiEL P3t5YaOs23 Q68nBIfxSHPkBPTnYBWkLA UgwGfovb3mvW9xTx7+PC9j l4rsin21zX90wEH+PHRkIH D1oJtyLFif ZSBufY3gNZuaKcB4CGMsVi SknN42kOUxKJbaGc3ymHcn uBzbGM2gVLQrzarqf639Fo Gvw8idHDEa dIFeUCrsOYN7S78jf1I4ZR LkARCjKAW0sQT6yD4wfExf bjogbGVmdDsgdmVydGljYW pzBNgoQ789 IHRvcDsnPlBhdGllbnQgTm GvJRc0B8CfBuu5OSRflIso US0meIWdTMnzPi2kdVpngT vhNJ1fEFBf kusnl736PrYjg0vgAFZqbY HqIRkfVPT1H25uq7S8GONq RMFnFTL5vXW2sR3jxIxgwk ogbGVmdDsg thFtmWhnGLfbZXwqN299VU RvcDsnPkJpcnRoIERhdGU6 UF29ZX74iGTpk6U2vUF2N6 BhZGRpbmct opytnPM1BMYmTFHxzK69Jg 3msJjkVy5oXBEgSKZ1JEYe qIPqZ8BmmM0qDlBgIZBrYK RaA0SacKWq VBzzD886SBymRaQ8BEYocn IbQ5IbKWDpvEztEsR7n1Z7 Zn7AF8A3FN18MM78rYTrd5 D1pKI8A0Qx IWIpfdvgsdynkDV8NALcUE WxcQ13Pz4bxJrwWs3bLJYj LFK5XHAolGHoZ7NcoM2bLc AjMDAwMDAw T0TlsMBwRUikM603ZJcpBo N3IAYdkiCkH0MfYVEumToe BvA5k5Q1Vp2YCRx7QP83PR 09kJQpb9W2 jZY1Y5JhXEUpcjtljoffsP V5KZIfEGMhuV53Vw9rbFdo Yc4mIGAhRWE9TCVpaYFwZ5 JwbS4iMwOa RBSsTLJdL7OgtIYuARgkP4 20BEdxPyX9JKQluxNkA1Ki OMCydHepUpF0g5U2Qt4LAW BaFO20ROB5 pBC5QP03LM18T2CbMmxwyG FibGU+PHRhYmxlIHdpZHRo VOqyKHBvLyMdfPwhOW7yEm 9yZGVyLWNv vHvlqLGcWtMhp9seDHIkYK nuGR9ooJywO1OabVT0IDAo c8n7Ix57G46xX6UsdSV+PG SinET2iYO3 dC6rYgCbNnY1HNilK501Ok XaoPQzZnqlb8aqm8cspYj2 DiX8JJHdqnUvyMjpEVZ3d8 ZjJx36P57f IHdpZHRoPSIxNSUiIHZhbG iwel9yoZ1mQn3+PGNvbCB3 iIU8tX5nYhJaUoL8EQtjK6 49InRvcCIv Ldbml5wxe9ecdBs7PmCjTJ LkgvMvsPtuWQH9e3ZaUm58 B8JjfAmwk8EbZom8sz46nP Luu7Z8hJS5 B2QzFUTuazypwZFyjTkxTD 3fHSWwqonqXUKawW9kZJEm E7l1MyKoEaB8WKjgP2Jlpy R7DJCexLWv XPvyLWS3O57ri8N6PJZzDX NzJPA2yAA6zE1ctYdcoomy bGVmdDsgdmVydGljYWwtYW acA285QLHw iMhlISXjuP3pCANxgTCmkH sbDK5kXQQpzbtiJdHIFNKB AeqlCVXFK63gGUndoEH+PH QyOLU0sVbg QKxmSGBgiX0jJTLbK4c5Lv NfGgN0XZdmX0DpWHFmsoty Nj56hU8mMuLaDyV9IAxgC5 TbbjP1ZMKw hPBhRCxgIIV7W79dj4J2TO FiNAOgWHD6vZT9tY7uzJbu bjogbGVmdDsgdmVydGljYW foWAwyQ506 QZPfbNekHdK9YnR6MbM6GM L8I0FbKfk7GPFnrXkjCT4o jNNkVMrrTf7vwLgbzQjbST 4wNTBpbjtw JPXuoY5sBMOobVWfhPzyPU 4sDESzdyeqh567NaZnRLS0 LAGhwAAmS4BuzB0tBbMjQZ MwALUjI7Na zWMyKAlmF373BRbnDwB3PI PiftFhT1FtKFJvdUmwLgH3 t2E7Tq2cRNRLEFKpactquD Q+PHRkIHN0 eRnxRRzpUNRftS2dIZQiU1 r5GaSdFoS9FLuyM7ThUWPm auqgJu96wU3eMcFfTqO9HW yaQ3IdmnG6 LVJwcNKjQKcuBPB2F36fo8 L7CADuHYZgKMW9iWL1fT9s bGlnbjogbGVmdDsgdmVydG ljYWwtYWxp K692MRUihPxjEd7ufSQ1B5 AtEih7AEVsjKscFW4xbBFs OYffDg7acNyqeQfiGK6cHK BpbjtwYWRk pD8lMDOmuEVnlJaiIH4zWF Zmbkcms855QbCfPAO9OEJv qZPlL0KrcP6hHiCfFAXeLR PoW7SjbBGa NZfzX312QMbhCiO9NWWamq GbN1HqBVKzzPpkRfV9k1D5 Tg6QoQGwOZQwBW64MG32SP 03K9KpJffh dGFibGU+PHRhYmxlIHdpZH XqYYzlEHAgRqOwiOueDL8b Aj6vOZPeQJZxaKzawAEbTn Sbn5whCYOf VUqpQE9qnQfmV6PtgQW9DN Mri0e2Bw26R36yY0GfbMT+ MEQadRD1vFD4nU4pEtSoTk V7BRwxB070 SeUukGChTclhr9hjn2tquF m8JrZsBJXwlgFytCghFLK0 s7MbWm90E62jBSawIEXuDI IyMCUiIHZh yYtxap3gmP2kXv6+PGNvbC D9xRQ4dA4tQtVoWdD3NXwo G125PyFyyCAbIarhH25pN7 JvdXA+PHRy Xhy6YTIehIciVE4djSMiXC wlAx4wJFD9QcKkYlXpCIbc K9VrFQEmvqbbmkblmUR5HW AeEVFdyJ23 Bt5kiJbtWu2aWXEiFLQ4SW PxlNTrA1RpsK0tLwMuWTNe NDKoF6DjdQRfXZhrA988UI ntTjD3PQMt owXkA4KbISGosDprVfX6q9 Y5Sw2QaBuurWIuQX5cNdGq OAa2Z6HlPiq5FBBntRxrEU 0ncGFkZGlu Xz2quDsglFtaTP1zKCIfwt bnm368IsPwz8cpHWAyeHPk FBxiLWT3C21ns9V9HUGeQD WtXBX2oQX4 uL9zvOujdrwpcDFxlIysbd HlxLhcFPibUEoqJ562BNDu yUduMrDQFme0B5ArBvi2VX ImeOykEH2b yXZfMMctKd3azFwxvResNF 8bXRWnzamum164IrQwo8sy FFNbbQOkMKrkQQZ5Z64sf5 S1FMWbWEWz GMO6iPS0xI6soSbxrjqozO VmdDsgdmVydGljYWwtYWxp M446LGGgzBebWj2LYml3Y4 LmHui5ANRa jUguTA6tkUNhKDooKk1emC cktOkjWZ3cMKZffdure076 HbMib5ucUPJmcACyOVenIG M9V15wz2L8 BYIwYRHbESP6bUH3yB5egM lnbjogbGVmdDsgdmVydGlj BYxbEXlxN259YKOumFlfMr BheWVyOjwv dGQ+DG98fl28L0YtMdgfOq t8FXEaTLX9qHM0oO7uNISw SUhzz9W0iJK3B7StpbRxwk 9ug7hqUUZc ZTog (more content not included)... Normal [facility] Operative Reporton Operative Report Patient: AUDREY DONALD Age: 31 years Sex: Male : 1990 Associated Diagnoses: None Author: Shirley Murrell MD Procedure Operative Information Details: Date/ Time: 05/23/2022 10:00:00. Pre-Op Dx: Kidney stone (XGT70-YK N20.0, Billing Diagnosis, Medical), Foreign Body in [...] including serum labs and 24-hour urine . [facility] Comment on above: Result Comment: Elec tronically Signed By: Shirley Murrell MD\.br\Date and Time Signed: 05/27/22 17:07 EST Consent for Procedure/Surger yon 05-26-2022 Consent for Procedure/Surgery [id number]#1.0 0CD:127 [facility] IntraOperative Documentson 0 05-26-2022 IntraOperative Documents [id number]#1.0 0CD:127 [facility] Formson 05-24-2022 Forms [id number]#1.0 0CD:127 [facility] Consent for Treatmenton 05-02 Consent for Treatment [id number]#1.0 0CD:127 [facility] Main OR Intraoperative Recor don 05-23-2022 Main OR Intraoperative Record IntraOp Document Type FTURO Summary Primary Physician: Shirley Murrell MD Finalized Date/Time: 05/23/22 10:14:49 Pt. Name: ETHAN DONALD Isabelle/Sex: 1990 Male Med Rec #: [id number] Physician: Shirley Murrell MD Financial #: [id number] Pt. Type: O Room/Bed: / Admit/Disch: 05/23/22 08:41:51 - Institution: Case Times FTURO Entry 1 Patient Times In Room 05/23/22 10:05:00 Out Room 05/23/22 10:21:00 Procedure Times Start 05/23/22 10:11:00 Stop 05/23/22 10:16:00 Anesthesia Times Last Modified By: Yumi CAMARILLO, MICHELLEOR, Marlyn 05/23/22 10:14:32 Case Attendance FTURO Entry 1 Entry 2 Entry 3 Case Attendee Handy WILEY, Shirley Eason RN, CNOR, Leandra REYES, Nereida Cline Role Performed Surgeon - Primary Applications Support Specialist - Primary Scrub - Primary Time In 05/23/22 10:05:00 05/23/22 10:05:00 05/23/22 10:05:00 Time Out 05/23/22 10:21:00 05/23/22 10:21:00 05/23/22 10:21:00 Procedure CYSTOSCOPY LOCAL WITH CYSTOSCOPY LOCAL WITH CYSTOSCOPY LOCAL WITH STENT REMOVAL(Left) STENT REMOVAL(Left) STENT REMOVAL(Left) Comments Last Modified By: Yumi RN, CNOR, Yumi RN, CNOR, Yumi RN, CNOR, Marlyn 05/23/22 Marlyn 05/23/22 Marlyn 05/23/22 10:14:33 [...] Out Shirley Murrell MD, Verified (If Participants NICOLE Eason RN, Applicable) Leandra Cline CST, Julie A Time [...] By: NICOLE Eason RN, Ruthann 05/23/22 10:14 [facility] Main OR Preoperative Recordo n 05-23-2022 Main OR Preoperative Record Holding Area Document Type FTURO Summary Primary Physician: Shirley Murrell MD Finalized Date/Time: 05/23/22 10:11:23 Pt. Name: ETHAN DONALD /Sex: 1990 Male Med Rec #: [id number] Physician: Shirley Murrell MD Financial #: [id number] Pt. Type: O Room/Bed: / Admit/Disch: 05/23/22 [...] Comment: difficulty voiding, not Skin Integrity Intact, Reasnor, Warm, & feeling empty, pain in Dry [...] 09:28 NICOLE Eason RN, Ruthann 05/23/22 10:11 [facility] Insurance Correspondence Off iceon 05-17-2022 Insurance Correspondence Office [id number]#1. 00CD:127 [facility] ED Note-Physicianon 05-14-19 ED Note-Physician [id number]#1.0 0CD:127 Normal [facility] RAD - CT Reporton 05-14-[address]22 RAD - CT Report [id number]#1. 00CD:127 [facility] RAD - CT Report [id number]#1. 00CD:127 [facility] RAD - MISCon 05-14-2022 RAD - MISC [id number]#1. 00CD:127 [facility] RAD - MISC [id number]#1. 00CD:127 [facility] RAD - MISC [id number]#1. 00CD:127 [facility] RAD - Ultrasound Reporton RAD - Ultrasound Report [id number]#1. 00CD:127 Normal [facility] AMYLASEon 05-12-2022 Amylase [Catalytic activity/Vol] 39 U/L Normal 25-115 [facility] Comment on above: Performed By: #### E RUR #### [facility] [address] [address] [address] Pratibha Stevenson CBC AUTO DIFFon 05-12-2022 BASO # 0.0 103/ul Normal 0.0-0.1 [facility] Comment on above: Performed By: #### L ACT #### [facility] [address] [address] [address] Pratibha Stevenson Basophils/100 WBC (Bld) 0.2 % Normal 0.2-2.0 [facility] Comment on above: Performed By: #### L ACT #### [facility] [address] [address] [address] Pratibha Stevenson EO # 0.0 103/ul Normal 0.0-0.7 [facility] Comment on above: Performed By: #### L ACT #### [facility] [address] [address] [address] Pratibha Stevenson Eosinophils/100 WBC (Bld) 0.0 % Critically low 0.9-7.0 [facility] Comment on above: Performed By: #### L ACT #### [facility] [address] [place] [address] Dr. Pratibha Stevenson Erythrocyte distribution width (RBC) [Ratio] 11.7 % Normal 11.0-15.0 [facility] Comment on above: Performed By: #### L ACT #### [facility] [address] [place] [address] Dr. Pratibha Stevenson Hematocrit (Bld) [Volume fraction] 43.0 % Normal 42.0-54.0 [facility] Comment on above: Performed By: #### L ACT #### [facility] [address] [place] [address] Dr. Pratibha Stevenson Hemoglobin (Bld) [Mass/Vol] 13.9 g/dL Critically low 14.0-18.0 [facility] Comment on above: Performed By: #### L ACT #### [facility] [address] [place] [address] Dr. Pratibha Stevenson IG # 0.03 10e3/ul Normal 0.00-0.03 [facility] Comment on above: Performed By: #### L ACT #### [facility] [address] [place] [address] Dr. Pratibha Stevenson IG % 0.3 % Normal 0.0-0.5 [facility] Comment on above: Performed By: #### L ACT #### [facility] [address] [place] [address] Dr. Pratibha Stevenson LYMPH # 0.8 103/ul Critically low 1.2-3.8 [facility] Comment on above: Performed By: #### L ACT #### [facility] [address] [place] [address] Dr. Pratibha Stevenson Lymphocytes/100 WBC (Bld) 8.6 % Critically low 20.5-60.0 [facility] Comment on above: Performed By: #### L ACT #### [facility] [address] [place] [address] Dr. Pratibha Stevenson MANUAL DIFF REQ NO Normal [facility] Comment on above: Performed By: #### L ACT #### [facility] [address] [place] [address] Dr. Pratibha Stevenson MCH (RBC) [Entitic mass] 31.0 pg Normal 25.9-34.0 [facility] Comment on above: Performed By: #### L ACT #### [facility] [address] [place] [address] Dr. Pratibha Stevenson MCHC (RBC) [Mass/Vol] 32.3 g/dL Normal 29.9-35.2 [facility] Comment on above: Performed By: #### L ACT #### [facility] [address] [place] [address] Dr. Pratibha Stevenson MCV (RBC) [Entitic vol] 96.0 fL Critically high 80.0-94.0 [facility] Comment on above: Performed By: #### L ACT #### [facility] [address] [place] [address] Dr. Pratibha Stevenson MONO # 0.4 103/ul Normal 0.3-0.8 [facility] Comment on above: Performed By: #### L ACT #### [facility] [address] [place] [address] Dr. Pratibha Stevenson Monocytes/100 WBC (Bld) 4.5 % Normal 1.7-12.0 [facility] Comment on above: Performed By: #### L ACT #### [facility] [address] [place] [address] Dr. Pratibha Stevenson NEUT # 8.4 103/ul Critically high 1.4-6.5 [facility] Comment on above: Performed By: #### L ACT #### [facility] [address] [address] [address] Pratibha Stevenson Neutrophils/100 WBC (Bld) 86.4 % Critically high 43.0-75.0 [facility] Comment on above: Performed By: #### L ACT #### [facility] [address] [address] [address] Pratibha Stevenson Platelet mean volume (Bld) [Entitic vol] 10.6 fL Normal 9.5-13.5 [facility] Comment on above: Performed By: #### L ACT #### [facility] [address] [address] [address] Pratibha Stevenson PLT 227 103/ul Normal 150-450 [facility] Comment on above: Performed By: #### L ACT #### [facility] [address] [place] [address] Dr. Pratibha Stevenson RBC 4.48 106/ul Critically low 4.70-6.10 [facility] Comment on above: Performed By: #### L ACT #### [facility] [address] [address] [address] Pratibha Stevenson WBC 9.7 103/ul Normal 4.0-11.0 [facility] Comment on above: Performed By: #### L ACT #### [facility] [address] [place] [address] Dr. Pratbiha Stevenson Consent for Procedure/Surger yon 05-12-2022 Consent for Procedure/Surgery [id number]#1.0 0CD:127 Normal [facility] LIPASEon 05-12-2022 Lipase [Catalytic activity/Vol] 110.0 U/L Normal 73.0-393.0 [facility] Comment on above: Performed By: #### E RUR #### [facility] [address] [address] [address] Pratibha Stevenson Operative Reporton Operative Report [id number]#1.0 0CD:127 Normal [facility] Operative Report [id number]#1.0 0CD:127 Normal [facility] Comment on above: Other Comment: SAMMI TAY PROF 14(COMP METB)on 023 Albumin [Mass/Vol] 3.3 g/dL Critically low 3.4-5.0 [facility] Comment on above: Performed By: #### E RUR #### [facility] [address] [place] [address] Dr. Pratibha Stevenson Albumin/Globulin [Mass ratio] 1.2 {ratio} Normal [facility] Comment on above: Performed By: #### E RUR #### [facility] [address] [place] [address] Dr. Pratibha Stevenson ALP [Catalytic activity/Vol] 68 U/L Normal 46-116 [facility] Comment on above: Performed By: #### E RUR #### [facility] [address] [place] [address] Dr. Pratibha Stevenson ALT [Catalytic activity/Vol] 27 U/L Normal 16-63 [facility] Comment on above: Performed By: #### E RUR #### [facility] [address] [place] [address] Dr. Pratibha Stevenson Anion gap [Moles/Vol] 10.4 mmol/L Normal [facility] Comment on above: Performed By: #### E RUR #### [facility] [address] [place] [address] Dr. Pratibha Stevenson AST [Catalytic activity/Vol] 25 U/L Normal 15-37 [facility] Comment on above: Performed By: #### E RUR #### [facility] [address] [place] [address] Dr. Pratibha Stevenson Bilirubin [Mass/Vol] 0.5 mg/dL Normal 0.2-1.0 [facility] Comment on above: Performed By: #### E RUR #### [facility] [address] [place] [address] Dr. Pratibha Stevenson Calcium [Mass/Vol] 8.8 mg/dL Normal 8.5-10.1 [facility] Comment on above: Performed By: #### E RUR #### [facility] [address] [address] [address] Pratibha Stevenson Chloride [Moles/Vol] 105 mmol/L Normal 98-107 [facility] Comment on above: Performed By: #### E RUR #### [facility] [address] [address] [address] Pratibha Stevenson CO2 [Moles/Vol] 26.5 mmol/L Normal 21.0-32.0 [facility] Comment on above: Performed By: #### E RUR #### [facility] [address] [place] [address] Dr. Pratibha Stevenson Creatinine [Mass/Vol] 1.15 mg/dL Normal 0.70-1.30 [facility] Comment on above: Performed By: #### E RUR #### [facility] [address] [place] [address] Dr. Pratibha Stevenson EGFR-AF CITIZEN [place] >60 Normal >=60 [facility] Comment on above: Performed By: #### E RUR #### [facility] [address] [place] [address] Dr. Pratibha Stevenson EGFR-NON AF CITIZEN OF [place] >60 Normal >=60 [facility] Comment on above: Performed By: #### E RUR #### [facility] [address] [place] [address] Dr. Pratibha Stevenson Globulin (S) [Mass/Vol] 2.7 g/dL Normal [facility] Comment on above: Performed By: #### E RUR #### [facility] [address] [place] [address] Dr. Pratibha Stevenson Glucose [Mass/Vol] 119 mg/dL Critically high 74-[address] [facility] Comment on above: Performed By: #### E RUR #### [facility] [address] [place] [address] Dr. Pratibha Stevenson Potassium [Moles/Vol] 3.9 mmol/L Normal 3.5-5.1 [facility] Comment on above: Performed By: #### E RUR #### [facility] [address] [address] [address] Pratibha Stevenson Protein [Mass/Vol] 6.0 g/dL Critically low 6.4-8.2 [facility] Comment on above: Performed By: #### E RUR #### [facility] [address] [address] [address] Pratibha Stevenson Sodium [Moles/Vol] 138 mmol/L Normal 136-145 [facility] Comment on above: Performed By: #### E RUR #### [facility] [address] [address] [address] Pratibha Stevenson Urea nitrogen [Mass/Vol] 7.0 mg/dL Normal 7.0-18.0 [facility] Comment on above: Performed By: #### E RUR #### [facility] [address] [place] [address] Dr. Pratibha Stevenson Urea nitrogen/Creatinine [Mass ratio] 6.1 mg/mg Normal [facility] Comment on above: Performed By: #### E RUR #### [facility] [address] [place] [address] Dr. Pratibha Stevenson XR KUB 1 VIEWon [...] by: ROSALINO VIDALES Date: 2022-05-12 06:43 Normal [facility] AMYLASEon 05-11-2022 Amylase [Catalytic activity/Vol] 52 U/L Normal 25-115 [facility] Comment on above: Performed By: #### C MP, GREG, LIPA #### [facility] [address] [address] [address] Pratibha Stevenson CBC AUTO DIFFon 05-11-2022 BASO # 0.0 103/ul Normal 0.0-0.1 [facility] Comment on above: Performed By: #### C BC #### [facility] [address] [place] [address] Dr. Pratibha Stevenson Basophils/100 WBC (Bld) 0.6 % Normal 0.2-2.0 [facility] Comment on above: Performed By: #### C BC #### [facility] [address] [place] [address] Dr. Pratibha Stevenson EO # 0.2 103/ul Normal 0.0-0.7 [facility] Comment on above: Performed By: #### C BC #### [facility] [address] [place] [address] Dr. Pratibha Stevenson Eosinophils/100 WBC (Bld) 2.3 % Normal 0.9-7.0 [facility] Comment on above: Performed By: #### C BC #### [facility] [address] [place] [address] Dr. Pratibha Stevenson Erythrocyte distribution width (RBC) [Ratio] 11.7 % Normal 11.0-15.0 [facility] Comment on above: Performed By: #### C BC #### [facility] [address] [place] [address] Dr. Pratibha Stevenson Hematocrit (Bld) [Volume fraction] 42.4 % Normal 42.0-54.0 [facility] Comment on above: Performed By: #### C BC #### [facility] [address] [place] [address] Dr. Pratibha Stevenson Hemoglobin (Bld) [Mass/Vol] 14.3 g/dL Normal 14.0-18.0 [facility] Comment on above: Performed By: #### C BC #### [facility] [address] [place] [address] Dr. Pratibha Stevenson IG # 0.01 10e3/ul Normal 0.00-0.03 [facility] Comment on above: Performed By: #### C BC #### [facility] [address] [place] [address] Dr. Pratibha Stevenson IG % 0.2 % Normal 0.0-0.5 [facility] Comment on above: Performed By: #### C BC #### [facility] [address] [place] [address] Dr. Pratibha Stevenson LYMPH # 2.8 103/ul Normal 1.2-3.8 [facility] Comment on above: Performed By: #### C BC #### [facility] [address] [place] [address] Dr. Pratibha Stevenson Lymphocytes/100 WBC (Bld) 41.8 % Normal 20.5-60.0 [facility] Comment on above: Performed By: #### C BC #### [facility] [address] [place] [address] Dr. Pratibha Stevenson MANUAL DIFF REQ NO Normal [facility] Comment on above: Performed By: #### C BC #### [facility] [address] [place] [address] Dr. Pratibha Stevenson MCH (RBC) [Entitic mass] 31.0 pg Normal 25.9-34.0 [facility] Comment on above: Performed By: #### C BC #### [facility] [address] [place] [address] Dr. Pratibha Stevenson MCHC (RBC) [Mass/Vol] 33.7 g/dL Normal 29.9-35.2 [facility] Comment on above: Performed By: #### C BC #### [facility] [address] [place] [address] Dr. Pratibha Stevenson MCV (RBC) [Entitic vol] 92.0 fL Normal 80.0-94.0 [facility] Comment on above: Performed By: #### C BC #### [facility] [address] [place] [address] Dr. Pratibha Stevenson MONO # 0.5 103/ul Normal 0.3-0.8 [facility] Comment on above: Performed By: #### C BC #### [facility] [address] [place] [address] Dr. Pratibha Stevenson Monocytes/100 WBC (Bld) 7.9 % Normal 1.7-12.0 [facility] Comment on above: Performed By: #### C BC #### [facility] [address] [place] [address] Dr. Pratibha Stevenson NEUT # 3.1 103/ul Normal 1.4-6.5 [facility] Comment on above: Performed By: #### C BC #### [facility] [address] [place] [address] Dr. Pratibha Stevenson Neutrophils/100 WBC (Bld) 47.2 % Normal 43.0-75.0 [facility] Comment on above: Performed By: #### C BC #### [facility] [address] [place] [address] Dr. Pratibha Stevenson Platelet mean volume (Bld) [Entitic vol] 10.7 fL Normal 9.5-13.5 [facility] Comment on above: Performed By: #### C BC #### [facility] [address] [place] [address] Dr. Pratibha Stevenson PLT 216 103/ul Normal 150-450 [facility] Comment on above: Performed By: #### C BC #### [facility] [address] [place] [address] Dr. Pratibha Stevenson RBC 4.61 106/ul Critically low 4.70-6.10 [facility] Comment on above: Performed By: #### C BC #### [facility] [address] [place] [address] Dr. Pratibha Stevenson WBC 6.6 103/ul Normal 4.0-11.0 [facility] Comment on above: Performed By: #### C BC #### [facility] [address] [place], [place] [id number] Dr. Pratibha Stevenson CT ABD/PELVIS WO CONon [...] SAUMYA MARSH Date: 2022-05-11 08:31 Normal [facility] LIPASEon 05-11-2022 Lipase [Catalytic activity/Vol] 241.0 U/L Normal 73.0-393.0 [facility] Comment on above: Performed By: #### C MP, GREG, LIPA #### [facility] [address] [place], [place] [address] Dr. Pratibha Stevenson PROF 14(COMP METB)on 023 Albumin [Mass/Vol] 3.6 g/dL Normal 3.4-5.0 [facility] Comment on above: Performed By: #### C MP, GREG, LIPA #### [facility] [address], [place] [address] Dr. Pratibha Stevenson Albumin/Globulin [Mass ratio] 1.2 {ratio} Normal [facility] Comment on above: Performed By: #### C MP, GREG, LIPA #### [facility] [address] [place] [address] Dr. Pratibha Stevenson ALP [Catalytic activity/Vol] 75 U/L Normal 46-116 [facility] Comment on above: Performed By: #### C MP, GREG, LIPA #### [facility] [address] [place] [address] Dr. Pratibha Stevenson ALT [Catalytic activity/Vol] 28 U/L Normal 16-63 [facility] Comment on above: Performed By: #### C MP, GREG, LIPA #### [facility] [address] [place] [address] Dr. Pratibha Stevenson Anion gap [Moles/Vol] 9.7 mmol/L Normal [facility] Comment on above: Performed By: #### C MP, GREG, LIPA #### [facility] [address] [place] [address] Dr. Pratibha Stevenson AST [Catalytic activity/Vol] 19 U/L Normal 15-37 [facility] Comment on above: Performed By: #### C MP, GREG, LIPA #### [facility] [address] [place] [address] Dr. Pratibha Stevenson Bilirubin [Mass/Vol] 0.5 mg/dL Normal 0.2-1.0 [facility] Comment on above: Performed By: #### C MP, GREG, LIPA #### [facility] [address] [place] [address] Dr. Pratibha Stevenson Calcium [Mass/Vol] 9.1 mg/dL Normal 8.5-10.1 [facility] Comment on above: Performed By: #### C MP, GREG, LIPA #### [facility] [address] [place] [address] Dr. Pratibha Stevenson Chloride [Moles/Vol] 104 mmol/L Normal 98-107 [facility] Comment on above: Performed By: #### C MP, GREG, LIPA #### [facility] [address] [place] [address] Dr. Pratibha Stevenson CO2 [Moles/Vol] 29.3 mmol/L Normal 21.0-32.0 [facility] Comment on above: Performed By: #### C GREG NGUYEN LIPA #### [facility] [address] [place] [address] [address] Pratibha Stevenson Creatinine [Mass/Vol] 1.21 mg/dL Normal 0.70-1.30 [facility] Comment on above: Performed By: #### C GREG NGUYEN, LIPA #### [facility] [address] [place] [address] [address] Pratibha Stevenson EGFR-AF CITIZ[place] >60 Normal >=60 [facility] Comment on above: Performed By: #### C GREG NGUYEN LIPA #### [facility] [address] [address] [address] Pratibha Stevenson EGFR-NON AF CITIZEN [place] >60 Normal >=60 [facility] Comment on above: Performed By: #### C GREG NGUYEN LIPA #### [facility] [address] [address] [address] Pratibha Stevenson Globulin (S) [Mass/Vol] 3.1 g/dL Normal [facility] Comment on above: Performed By: #### C GREG NGUYEN LIPA #### [facility] [address] [address] [address] Pratibha Stevenson Glucose [Mass/Vol] 88 mg/dL Normal 74-106 [facility] Comment on above: Performed By: #### C GREG NGUYEN LIPA #### [facility] [address] [address] [address] Pratibha Stevenson Potassium [Moles/Vol] 4.0 mmol/L Normal 3.5-5.1 [facility] Comment on above: Performed By: #### C GREG NGUYEN, LIPA #### [facility] [address] [address] [address] Pratibha Stevenson Protein [Mass/Vol] 6.7 g/dL Normal 6.4-8.2 [facility] Comment on above: Performed By: #### C MP, GREG, LIPA #### [facility] [address], [place] [address] Dr. Pratibha Stevenson Sodium [Moles/Vol] 139 mmol/L Normal 136-145 [facility] Comment on above: Performed By: #### C MP, GREG, LIPA #### [facility] [address] [address] [address] Pratibha Stevenson Urea nitrogen [Mass/Vol] 8.0 mg/dL Normal 7.0-18.0 [facility] Comment on above: Performed By: #### C MP, GREG, LIPA #### [facility] [address] [address] [address] Pratibha Stevenson Urea nitrogen/Creatinine [Mass ratio] 6.6 mg/mg Normal [facility] Comment on above: Performed By: #### C MP, GREG, LIPA #### [facility] [address] [address] [address] Pratibha Stevenson XR KUB 1 VIEWon [...] MAUREEN GARDNER Date: 2022-05-11 06:36 Normal [facility] AMYLASEon 05-10-2022 Amylase [Catalytic activity/Vol] 41 U/L Normal 25-115 [facility] Comment on above: Performed By: #### L ACT #### [facility] [address] [place] [address] [address] Pratibha Stevenson CBC AUTO DIFFon 05-10-2022 BASO # 0.0 103/ul Normal 0.0-0.1 [facility] Comment on above: Performed By: #### L ACT #### [facility] [address] [address] [address] Pratibha Stevenson Basophils/100 WBC (Bld) 0.7 % Normal 0.2-2.0 [facility] Comment on above: Performed By: #### L ACT #### [facility] [address] [address] [address] Pratibha Stevenson EO # 0.2 103/ul Normal 0.0-0.7 [facility] Comment on above: Performed By: #### L ACT #### [facility] [address] [place] [address] Dr. Pratibha Stevenson Eosinophils/100 WBC (Bld) 2.8 % Normal 0.9-7.0 [facility] Comment on above: Performed By: #### L ACT #### [facility] [address] [place] [address] Dr. Pratibha Stevenson Erythrocyte distribution width (RBC) [Ratio] 11.8 % Normal 11.0-15.0 [facility] Comment on above: Performed By: #### L ACT #### [facility] [address] [place] [address] Dr. Pratibha Stevenson Hematocrit (Bld) [Volume fraction] 38.8 % Critically low 42.0-54.0 [facility] Comment on above: Performed By: #### L ACT #### [facility] [address] [place] [address] Dr. Pratibha Stevenson Hemoglobin (Bld) [Mass/Vol] 13.3 g/dL Critically low 14.0-18.0 [facility] Comment on above: Performed By: #### L ACT #### [facility] [address] [address] [address] Pratibha Stevenson IG # 0.02 10e3/ul Normal 0.00-0.03 [facility] Comment on above: Performed By: #### L ACT #### [facility] [address] [place] [address] Dr. Pratibha Stevenson IG % 0.3 % Normal 0.0-0.5 [facility] Comment on above: Performed By: #### L ACT #### [facility] [address] [place] [address] Dr. Pratibha Stevenson LYMPH # 2.1 103/ul Normal 1.2-3.8 [facility] Comment on above: Performed By: #### L ACT #### [facility] [address] [place] [address] Dr. Pratibha Stevenson Lymphocytes/100 WBC (Bld) 35.3 % Normal 20.5-60.0 [facility] Comment on above: Performed By: #### L ACT #### [facility] [address] [place] [address] Dr. Pratibha Stevenson MANUAL DIFF REQ NO Normal [facility] Comment on above: Performed By: #### L ACT #### [facility] [address] [place] [address] Dr. Pratibha Stevenson MCH (RBC) [Entitic mass] 30.7 pg Normal 25.9-34.0 [facility] Comment on above: Performed By: #### L ACT #### [facility] [address] [place] [address] Dr. Pratibha Stevenson MCHC (RBC) [Mass/Vol] 34.3 g/dL Normal 29.9-35.2 [facility] Comment on above: Performed By: #### L ACT #### [facility] [address] [place] [address] Dr. Pratibha Stevenson MCV (RBC) [Entitic vol] 89.6 fL Normal 80.0-94.0 [facility] Comment on above: Performed By: #### L ACT #### [facility] [address] [place] [address] Dr. Pratibha Stevenson MONO # 0.4 103/ul Normal 0.3-0.8 [facility] Comment on above: Performed By: #### L ACT #### [facility] [address] [place] [address] [address] Pratibha Stevenson Monocytes/100 WBC (Bld) 7.4 % Normal 1.7-12.0 [facility] Comment on above: Performed By: #### L ACT #### [facility] [address] [place] [address] [address] Pratibha Stevenson NEUT # 3.1 103/ul Normal 1.4-6.5 [facility] Comment on above: Performed By: #### L ACT #### [facility] [address] [address] [address] Pratibha Stevenson Neutrophils/100 WBC (Bld) 53.5 % Normal 43.0-75.0 [facility] Comment on above: Performed By: #### L ACT #### [facility] [address] [place] [address] Dr. Pratibha Stevenson Platelet mean volume (Bld) [Entitic vol] 10.2 fL Normal 9.5-13.5 [facility] Comment on above: Performed By: #### L ACT #### [facility] [address] [place] [address] Dr. Pratibha Stevenson PLT 197 103/ul Normal 150-450 [facility] Comment on above: Performed By: #### L ACT #### [facility] [address] [place] [address] Dr. Pratibha Stevenson RBC 4.33 106/ul Critically low 4.70-6.10 [facility] Comment on above: Performed By: #### L ACT #### [facility] [address] [place] [address] Dr. Pratibha Stevenson WBC 5.8 103/ul Normal 4.0-11.0 [facility] Comment on above: Performed By: #### L ACT #### [facility] [address] [place] [address] Dr. Pratibha Stevenson LIPASEon 05-10-2022 Lipase [Catalytic activity/Vol] 134.0 U/L Normal 73.0-393.0 [facility] Comment on above: Performed By: #### L ACT #### [facility] [address] [place] [address] Dr. Pratibha Stevenson PROF 14(COMP METB)on 023 Albumin [Mass/Vol] 3.1 g/dL Critically low 3.4-5.0 [facility] Comment on above: Performed By: #### L ACT #### [facility] [address] [place] [address] Dr. Pratibha Stevenson Albumin/Globulin [Mass ratio] 1.1 {ratio} Normal [facility] Comment on above: Performed By: #### L ACT #### [facility] [address] [place] [address] [address] Pratibha Stevenson ALP [Catalytic activity/Vol] 68 U/L Normal 46-116 [facility] Comment on above: Performed By: #### L ACT #### [facility] [address] [place] [address] Dr. Pratibha Stevenson ALT [Catalytic activity/Vol] 25 U/L Normal 16-63 [facility] Comment on above: Performed By: #### L ACT #### [facility] [address] [place] [address] Dr. Pratibha Stevenson Anion gap [Moles/Vol] 11.1 mmol/L Normal [facility] Comment on above: Performed By: #### L ACT #### [facility] [address] [place] [address] Dr. Pratibha Stevenson AST [Catalytic activity/Vol] 16 U/L Normal 15-37 [facility] Comment on above: Performed By: #### L ACT #### [facility] [address] [place] [address] Dr. Pratibha Stevenson Bilirubin [Mass/Vol] 0.5 mg/dL Normal 0.2-1.0 [facility] Comment on above: Performed By: #### L ACT #### [facility] [address] [place] [address] Dr. Pratibha Stevenson Calcium [Mass/Vol] 8.6 mg/dL Normal 8.5-10.1 [facility] Comment on above: Performed By: #### L ACT #### [facility] [address] [address] [address] Pratibha Stevenson Chloride [Moles/Vol] 105 mmol/L Normal 98-107 [facility] Comment on above: Performed By: #### L ACT #### [facility] [address] [address] [address] Pratibha Stevenson CO2 [Moles/Vol] 26.6 mmol/L Normal 21.0-32.0 [facility] Comment on above: Performed By: #### L ACT #### [facility] [address] [address] [address] Pratibha Stevenson Creatinine [Mass/Vol] 1.12 mg/dL Normal 0.70-1.30 [facility] Comment on above: Performed By: #### L ACT #### [facility] [address] [place] [address] Dr. Pratibha Stevenson EGFR-AF [place] >60 Normal >=60 [facility] Comment on above: Performed By: #### L ACT #### [facility] [address] [place] [address] [address] Pratibha Stevenson EGFR-NON AF [place]IZ[place] >60 Normal >=60 [facility] Comment on above: Performed By: #### L ACT #### [facility] [address] [place] [address] Dr. Pratibha Stevenson Globulin (S) [Mass/Vol] 2.7 g/dL Normal [facility] Comment on above: Performed By: #### L ACT #### [facility] [address] [place] [address] Dr. Pratibha Stevenson Glucose [Mass/Vol] 86 mg/dL Normal 74-106 [facility] Comment on above: Performed By: #### L ACT #### [facility] [address] [place] [address] [address] Pratibha Stevenson Potassium [Moles/Vol] 3.7 mmol/L Normal 3.5-5.1 [facility] Comment on above: Performed By: #### L ACT #### [facility] [address] [address] [address] Pratibha Stevenson Protein [Mass/Vol] 5.8 g/dL Critically low 6.4-8.2 [facility] Comment on above: Performed By: #### L ACT #### [facility] [address], [place] [address] Dr. Pratibha Stevenson Sodium [Moles/Vol] 139 mmol/L Normal 136-145 [facility] Comment on above: Performed By: #### L ACT #### [facility] [address], [place] [address] Dr. Pratibha Stevenson Urea nitrogen [Mass/Vol] 12.0 mg/dL Normal 7.0-18.0 [facility] Comment on above: Performed By: #### L ACT #### [facility] [address] [address] [address] Pratibha Stevenson Urea nitrogen/Creatinine [Mass ratio] 10.7 mg/mg Normal [facility] Comment on above: Performed By: #### L ACT #### [facility] [address], [place] [address] Dr. Pratibha Stevenson US KIDNEYSon 05-10-2022 US [...] by: SAUMYA MARSH Date: 2022-05-10 08:37 Normal [facility] XR KUB 1 VIEWon 05-10-2022 XR KUB [...] MAUREEN GARDNER Date: 2022-05-10 06:55 Normal [facility] AMYLASEon 05-09-2022 Amylase [Catalytic activity/Vol] 44 U/L Normal 25-115 [facility] Comment on above: Performed By: #### C BC #### [facility] [address] [place] [address] Dr. Pratibha Stevenson CBC AUTO DIFFon 05-09-2022 BASO # 0.1 103/ul Normal 0.0-0.1 [facility] Comment on above: Performed By: #### S JOSE ARMANDO GRASTCX #### [facility] [address] [place] [address] Dr. Pratibha Stevenson Basophils/100 WBC (Bld) 0.9 % Normal 0.2-2.0 [facility] Comment on above: Performed By: #### S JOSE ARMANDO GRASTCX #### [facility] [address] [place] [address] Dr. Pratibha Stevenson EO # 0.2 103/ul Normal 0.0-0.7 [facility] Comment on above: Performed By: #### S JOSE ARMANDO GRASTCX #### [facility] [address] [place] [address] Dr. Pratibha Stevenson Eosinophils/100 WBC (Bld) 2.6 % Normal 0.9-7.0 [facility] Comment on above: Performed By: #### S SCRTian GRASTCX #### [facility] [address] [address] [address] Pratibha Stevenson Erythrocyte distribution width (RBC) [Ratio] 11.9 % Normal 11.0-15.0 [facility] Comment on above: Performed By: #### S SCRN, GRASTCX #### [facility] [address] [place] [address] Dr. Pratibha Stevenson Hematocrit (Bld) [Volume fraction] 38.8 % Critically low 42.0-54.0 [facility] Comment on above: Performed By: #### S SCRN, GRASTCX #### [facility] [address] [place] [address] Dr. Pratibha Stevenson Hemoglobin (Bld) [Mass/Vol] 13.9 g/dL Critically low 14.0-18.0 [facility] Comment on above: Performed By: #### S SCRN, GRASTCX #### [facility] [address] [place] [address] Dr. Pratibha Stevenson IG # 0.02 10e3/ul Normal 0.00-0.03 [facility] Comment on above: Performed By: #### S SCRN, GRASTCX #### [facility] [address] [place] [address] Dr. Pratibha Stevenson IG % 0.4 % Normal 0.0-0.5 [facility] Comment on above: Performed By: #### S SCRN, GRASTCX #### [facility] [address] [place] [address] Dr. Pratibha Stevenson LYMPH # 2.0 103/ul Normal 1.2-3.8 [facility] Comment on above: Performed By: #### S SCRN, GRASTCX #### [facility] [address] [place] [address] Dr. Pratibha Stevenson Lymphocytes/100 WBC (Bld) 34.9 % Normal 20.5-60.0 [facility] Comment on above: Performed By: #### S SCRN, GRASTCX #### [facility] [address] [place] [address] Dr. Pratibha Stevenson MANUAL DIFF REQ NO Normal [facility] Comment on above: Performed By: #### S SCRN, GRASTCX #### [facility] [address] [place] [address] Dr. Pratibha Stevenson MCH (RBC) [Entitic mass] 31.0 pg Normal 25.9-34.0 [facility] Comment on above: Performed By: #### S SCRN, GRASTCX #### [facility] [address] [place] [address] Dr. Pratibha Stevenson MCHC (RBC) [Mass/Vol] 35.8 g/dL Critically high 29.9-35.2 [facility] Comment on above: Performed By: #### S JOSE ARMANDO GRASTCX #### [facility] [address] [place] [address] Dr. Pratibha Stevenson MCV (RBC) [Entitic vol] 86.6 fL Normal 80.0-94.0 [facility] Comment on above: Performed By: #### S JOSE ARMANDO GRASTCX #### [facility] [address] [place] [address] Dr. Pratibha Stevenson MONO # 0.4 103/ul Normal 0.3-0.8 [facility] Comment on above: Performed By: #### S JOSE ARMANDO GRASTCX #### [facility] [address] [place] [address] Dr. Pratibha Stevenson Monocytes/100 WBC (Bld) 6.2 % Normal 1.7-12.0 [facility] Comment on above: Performed By: #### S JOSE ARMANDO, GRASTCX #### [facility] [address] [place] [address] Dr. Pratibha Stevenson NEUT # 3.1 103/ul Normal 1.4-6.5 [facility] Comment on above: Performed By: #### S JOSE ARMANDO, GRASTCX #### [facility] [address] [place] [address] Dr. Pratibha Stevenson Neutrophils/100 WBC (Bld) 55.0 % Normal 43.0-75.0 [facility] Comment on above: Performed By: #### S SCRN, GRASTCX #### [facility] [address] [address] [address] Pratibha Stevenson Platelet mean volume (Bld) [Entitic vol] 9.7 fL Normal 9.5-13.5 [facility] Comment on above: Performed By: #### S JOSE ARMANDO, GRASTCX #### [facility] [address] [address] [address] Pratibha Stevenson PLT 201 103/ul Normal 150-450 [facility] Comment on above: Performed By: #### S BELAN, GRASTCX #### [facility] [address] [place] [address] Dr. Pratibha Stevenson RBC 4.48 106/ul Critically low 4.70-6.10 [facility] Comment on above: Performed By: #### S JOSE ARMANDO, GRASTCX #### [facility] [address] [place] [address] Dr. Pratibha Stevenson WBC 5.7 103/ul Normal 4.0-11.0 [facility] Comment on above: Performed By: #### S JOSE ARMANDO, GRASTCX #### [facility] [address] [place] [address] Dr. Pratibha Stevenson CULTURE URINEon 05-09-2022 CULTURE URINE Culture Observations : NO GROWTH. Normal [facility] Comment on above: Performed By: #### C BC #### [facility] [address] [place] [address] Dr. Pratibha Stevenson LIPASEon 05-09-2022 Lipase [Catalytic activity/Vol] 98.0 U/L Normal 73.0-393.0 [facility] Comment on above: Performed By: #### C BC #### [facility] [address] [place] [address] Dr. Pratibha Stevenson PROF 14(COMP METB)on 023 Albumin [Mass/Vol] 3.2 g/dL Critically low 3.4-5.0 [facility] Comment on above: Performed By: #### C BC #### [facility] [address] [place] [address] Dr. Pratibha Stevenson Albumin/Globulin [Mass ratio] 1.3 {ratio} Normal [facility] Comment on above: Performed By: #### C BC #### [facility] [address] [address] [address] Pratibha Stevenson ALP [Catalytic activity/Vol] 74 U/L Normal 46-116 [facility] Comment on above: Performed By: #### C BC #### [facility] [address] [address] [address] Pratibha Stevenson ALT [Catalytic activity/Vol] 25 U/L Normal 16-63 [facility] Comment on above: Performed By: #### C BC #### [facility] [address] [address] [address] Pratibha Stevenson Anion gap [Moles/Vol] 10.7 mmol/L Normal [facility] Comment on above: Performed By: #### C BC #### [facility] [address] [address] [address] Pratibha Stevenson AST [Catalytic activity/Vol] 18 U/L Normal 15-37 [facility] Comment on above: Performed By: #### C BC #### [facility] [address] [place] [address] Dr. Pratibha Stevenson Bilirubin [Mass/Vol] 0.7 mg/dL Normal 0.2-1.0 [facility] Comment on above: Performed By: #### C BC #### [facility] [address] [place] [address] Dr. Pratibha Stevenson Calcium [Mass/Vol] 8.5 mg/dL Normal 8.5-10.1 [facility] Comment on above: Performed By: #### C BC #### [facility] [address] [address] [address] Pratibha Stevenson Chloride [Moles/Vol] 106 mmol/L Normal 98-107 [facility] Comment on above: Performed By: #### C BC #### [facility] [address] [place] [address] Dr. Pratibha Stevenson CO2 [Moles/Vol] 27.1 mmol/L Normal 21.0-32.0 [facility] Comment on above: Performed By: #### C BC #### [facility] [address] [address] [address] Pratibha Stevenson Creatinine [Mass/Vol] 1.16 mg/dL Normal 0.70-1.30 [facility] Comment on above: Performed By: #### C BC #### [facility] [address] [address] [address] Pratibha Stevenson EGFR-AF [place]IZ[place] >60 Normal >=60 [facility] Comment on above: Performed By: #### C BC #### [facility] [address] [address] [address] Pratibha Stevenson EGFR-NON AF [place]IZ[place] >60 Normal >=60 [facility] Comment on above: Performed By: #### C BC #### [facility] [address] [place] [address] Dr. Pratibha Stevenson Globulin (S) [Mass/Vol] 2.5 g/dL Normal [facility] Comment on above: Performed By: #### C BC #### [facility] [address] [place] [address] Dr. Pratibha Stevenson Glucose [Mass/Vol] 90 mg/dL Normal 74-106 [facility] Comment on above: Performed By: #### C BC #### [facility] [address] [place] [address] Dr. Pratibha Stevenson Potassium [Moles/Vol] 3.8 mmol/L Normal 3.5-5.1 [facility] Comment on above: Performed By: #### C BC #### [facility] [address] [place] [address] Dr. Pratibha Stevenson Protein [Mass/Vol] 5.7 g/dL Critically low 6.4-8.2 [facility] Comment on above: Performed By: #### C BC #### [facility] [address] [place] [address] Dr. Pratibha Stevenson Sodium [Moles/Vol] 140 mmol/L Normal 136-145 [facility] Comment on above: Performed By: #### C BC #### [facility] Laboratory [address] [place] [address] Dr. Pratibha Stevenson Urea nitrogen [Mass/Vol] 12.0 mg/dL Normal 7.0-18.0 [facility] Comment on above: Performed By: #### C BC #### [facility] [address] [place] [address] Dr. Pratibha Stevenson Urea nitrogen/Creatinine [Mass ratio] 10.3 mg/mg Normal [facility] Comment on above: Performed By: #### C BC #### [facility] [address] [place] [address] Dr. Pratibha Stevenson XR KUB 1 VIEWon [...] EDIS HERNÁNDEZ Date: 2022-05-09 05:31 Normal [facility] CBC AUTO DIFFon 05-08-2022 BASO # 0.1 103/ul Normal 0.0-0.1 [facility] Comment on above: Performed By: #### C BC #### [facility] [address] [place] [address] Dr. Pratibha Stevenson Basophils/100 WBC (Bld) 0.4 % Normal 0.2-2.0 [facility] Comment on above: Performed By: #### C BC #### [facility] [address] [place] [address] Dr. Pratibha Stevenson EO # 0.1 103/ul Normal 0.0-0.7 [facility] Comment on above: Performed By: #### C BC #### [facility] [address] [place] [address] Dr. Pratibha Stevenson Eosinophils/100 WBC (Bld) 1.0 % Normal 0.9-7.0 [facility] Comment on above: Performed By: #### C BC #### [facility] [address] [place] [address] Dr. Pratibha Stevenson Erythrocyte distribution width (RBC) [Ratio] 11.9 % Normal 11.0-15.0 [facility] Comment on above: Performed By: #### C BC #### [facility] [address] [place] [address] Dr. Pratibha Stevenson Hematocrit (Bld) [Volume fraction] 47.4 % Normal 42.0-54.0 [facility] Comment on above: Performed By: #### C BC #### [facility] [address] [place] [address] Dr. Pratibha Stevenson Hemoglobin (Bld) [Mass/Vol] 17.3 g/dL Normal 14.0-18.0 [facility] Comment on above: Performed By: #### C BC #### [facility] [address] [place] [address] Dr. Pratibha Stevenson IG # 0.05 10e3/ul Critically high 0.00-0.03 [facility] Comment on above: Performed By: #### C BC #### [facility] [address] [place] [address] Dr. Pratibha Stevenson IG % 0.4 % Normal 0.0-0.5 [facility] Comment on above: Performed By: #### C BC #### [facility] [address] [place] [address] Dr. Pratibha Stevenson LYMPH # 2.4 103/ul Normal 1.2-3.8 [facility] Comment on above: Performed By: #### C BC #### [facility] [address] [place] [address] Dr. Pratibha Stevenson Lymphocytes/100 WBC (Bld) 18.6 % Critically low 20.5-60.0 [facility] Comment on above: Performed By: #### C BC #### [facility] [address] [place] [address] Dr. Pratibha Stevenson MANUAL DIFF REQ NO Normal [facility] Comment on above: Performed By: #### C BC #### [facility] [address] [place] [address] Dr. Pratibha Stevenson MCH (RBC) [Entitic mass] 31.3 pg Normal 25.9-34.0 [facility] Comment on above: Performed By: #### C BC #### [facility] [address] [place] [address] Dr. Pratibha Stevenson MCHC (RBC) [Mass/Vol] 36.5 g/dL Critically high 29.9-35.2 [facility] Comment on above: Performed By: #### C BC #### [facility] [address] [place] [address] Dr. Pratibha Stevenson MCV (RBC) [Entitic vol] 85.7 fL Normal 80.0-94.0 [facility] Comment on above: Performed By: #### C BC #### [facility] [address] [place] [address] Dr. Pratibha Stevenson MONO # 0.6 103/ul Normal 0.3-0.8 [facility] Comment on above: Performed By: #### C BC #### [facility] [address] [place] [address] Dr. Pratibha Stevenson Monocytes/100 WBC (Bld) 5.0 % Normal 1.7-12.0 [facility] Comment on above: Performed By: #### C BC #### [facility] [address] [place] [address] Dr. Pratibha Stevenson NEUT # 9.6 103/ul Critically high 1.4-6.5 [facility] Comment on above: Performed By: #### C BC #### [facility] [address] [place] [address] Dr. Pratibha Stevenson Neutrophils/100 WBC (Bld) 74.6 % Normal 43.0-75.0 [facility] Comment on above: Performed By: #### C BC #### [facility] [address] [place] [address] Dr. Pratibha Stevenson Platelet mean volume (Bld) [Entitic vol] 9.6 fL Normal 9.5-13.5 [facility] Comment on above: Performed By: #### C BC #### [facility] [address] [address] [address] Pratibha Stevenson PLT 286 103/ul Normal 150-450 [facility] Comment on above: Performed By: #### C BC #### [facility] [address] [address] [address] Pratibha Stevenson RBC 5.53 106/ul Normal 4.70-6.10 [facility] Comment on above: Performed By: #### C BC #### [facility] [address] [id number] Pratibha Stevenson WBC 12.8 103/ul Critically high 4.0-11.0 [facility] Comment on above: Performed By: #### C BC #### [facility] [address] [place] [address] ABD/PELV W CONon [...] CHAGO ROLLINS Date: 2022-05-08 18:37 Normal [facility] Covid-19 PCR ([facility])on SARS-CoV-2 (COVID-19) RNA MARIKA+probe Ql (Unsp spec) Not detected Normal NOT DETECTED [facility] Comment on above: Result Comment: When diagnostic [...] for this test is supported by the [employer] of [employer] and Human Service's declaration [...] used). Performed By: #### C BC #### [facility] [address] [place] [address] Dr. Pratibha Stevenson ER URINE PROFILEon 3 Bilirubin Ql (U) SMALL Abnormal NEGATIVE [facility] Comment on above: Performed By: #### C BC #### [facility] [address] [address] [address] Pratibha Stevenson Clarity (U) CLEAR Normal CLEAR [facility] Comment on above: Performed By: #### C BC #### [facility] [address] [place] [address] Dr. Pratibha Stevenson Color (U) DK. ORANGE Abnormal YELLOW [facility] Comment on above: Performed By: #### C BC #### [facility] [address] [place] [address] Dr. Pratibha RIOS A micrscopic examination will be performed if indicated. Normal [facility] Comment on above: Performed By: #### C BC #### [facility] [address] [place] [address] Dr. Pratibha Stevenson Glucose Ql (U) Negative Normal NEGATIVE [facility] Comment on above: Performed By: #### C BC #### [facility] [address] [place] [address] Dr. Pratibha Stevenson Hemoglobin Ql (U) LARGE Abnormal NEGATIVE [facility] Comment on above: Performed By: #### C BC #### [facility] [address] [place] [address] Dr. Pratibha Stevenson Ketones Ql (U) TRACE Abnormal NEGATIVE [facility] Comment on above: Performed By: #### C BC #### [facility] [address] [place] [address] Dr. Pratibha Stevenson LEUKOCYTES Negative Normal NEGATIVE [facility] Comment on above: Performed By: #### C BC #### [facility] [address] [place] [address] Dr. Pratibha Stevenson Nitrite Ql (U) Negative Normal NEGATIVE [facility] Comment on above: Performed By: #### C BC #### [facility] [address] [place] [address] Dr. Pratibha Stevenson pH (U) 6.5 [pH] Normal 5-9 [facility] Comment on above: Performed By: #### C BC #### [facility] [address] [place] [address] Dr. Pratibha Stevenson Protein (U) [Mass/Vol] 100 mg/dL Abnormal NEGATIVE/ TRACE [facility] Comment on above: Performed By: #### C BC #### [facility] [address] [place] [address] Dr. Pratibha Stevenson SPEC GRAVITY 1.010 Normal 1.005-<=1.025 [facility] Comment on above: Performed By: #### C BC #### [facility] [address] [place] [address] Dr. Pratibha Stevenson UR MICRO IND INDICATED Normal [facility] Comment on above: Performed By: #### C BC #### [facility] [address] [place] [address] Dr. Pratibha Stevenson Urobilinogen Qn (U) 1.0 {Butch'U}/dL Normal 0.2 - 1. 0 [facility] Comment on above: Performed By: #### C BC #### [facility] [address] [place] [address] Dr. Pratibha Stevenson LIPASEon 05-08-2022 Lipase [Catalytic activity/Vol] 417.0 U/L Critically high 73.0-393.0 [facility] Comment on above: Performed By: #### L ACT #### [facility] [address] [place] [address] Dr. Pratibha Stevenson PROF 14(COMP METB)on 023 Albumin [Mass/Vol] 4.5 g/dL Normal 3.4-5.0 [facility] Comment on above: Performed By: #### L ACT #### [facility] [address] [place] [address] Dr. Pratibha Stevenson Albumin/Globulin [Mass ratio] 1.3 {ratio} Normal [facility] Comment on above: Performed By: #### L ACT #### [facility] [address] [place] [address] Dr. Pratibha Stevenson ALP [Catalytic activity/Vol] 97 U/L Normal 46-116 [facility] Comment on above: Performed By: #### L ACT #### [facility] [address] [place] [address] Dr. Pratibha Stevenson ALT [Catalytic activity/Vol] 35 U/L Normal 16-63 [facility] Comment on above: Performed By: #### L ACT #### [facility] [address] [address] [address] Pratibha Stevenson Anion gap [Moles/Vol] 13.7 mmol/L Normal [facility] Comment on above: Performed By: #### L ACT #### [facility] [address] [address] [address] Pratibha Stevenson AST [Catalytic activity/Vol] 22 U/L Normal 15-37 [facility] Comment on above: Performed By: #### L ACT #### [facility] [address] [address] [address] Pratibha Stevenson Bilirubin [Mass/Vol] 0.7 mg/dL Normal 0.2-1.0 [facility] Comment on above: Performed By: #### L ACT #### [facility] [address] [address] [address] Pratibha Stevenson Calcium [Mass/Vol] 9.6 mg/dL Normal 8.5-10.1 [facility] Comment on above: Performed By: #### L ACT #### [facility] [address] [address] [address] Pratibha Stevenson Chloride [Moles/Vol] 99 mmol/L Normal 98-107 [facility] Comment on above: Performed By: #### L ACT #### [facility] [address] [address] [address] Pratibha Stevenson CO2 [Moles/Vol] 29.0 mmol/L Normal 21.0-32.0 [facility] Comment on above: Performed By: #### L ACT #### [facility] [address] [address] [address] Pratibha Stevenson Creatinine [Mass/Vol] 1.43 mg/dL Critically high 0.70-1.30 [facility] Comment on above: Performed By: #### L ACT #### [facility] [address] [address] [address] Pratibha Stevenson EGFR-AF CITIZEN [place] >60 Normal >=60 [facility] Comment on above: Performed By: #### L ACT #### [facility] [address] [address] [address] Pratibha Stevenson EGFR-NON AF CITIZEN [place] 58 mL/min/1.73m2 Critically low >=60 [facility] Comment on above: Performed By: #### L ACT #### [facility] [address] [address] [address] Pratibha Stevenson Globulin (S) [Mass/Vol] 3.5 g/dL Normal [facility] Comment on above: Performed By: #### L ACT #### [facility] [address] [address] [address] Pratibha Stevenson Glucose [Mass/Vol] 127 mg/dL Critically high 74-106 [facility] Comment on above: Performed By: #### L ACT #### [facility] [address] [address] [address] Pratibha Stevenson Potassium [Moles/Vol] 3.7 mmol/L Normal 3.5-5.1 [facility] Comment on above: Performed By: #### L ACT #### [facility] [address] [address] [address] Pratibha Stevenson Protein [Mass/Vol] 8.0 g/dL Normal 6.4-8.2 [facility] Comment on above: Performed By: #### L ACT #### [facility] [address] [address] [address] Pratibha Stevenson Sodium [Moles/Vol] 138 mmol/L Normal 136-145 [facility] Comment on above: Performed By: #### L ACT #### [facility] [address] [address] [address] Pratibha Stevenson Urea nitrogen [Mass/Vol] 13.0 mg/dL Normal 7.0-18.0 [facility] Comment on above: Performed By: #### L ACT #### [facility] [address] [id number] Pratibha Stevenson Urea nitrogen/Creatinine [Mass ratio] 9.1 mg/mg Normal [facility] Comment on above: Performed By: #### L ACT #### [facility] [address] [place] [address] Dr. Pratibha Stevenson URINE MICROSCOPIC ONLYon BACTERIA NONE SEEN Normal NONE SEEN [facility] Comment on above: Performed By: #### C BC #### [facility] [address] [place] [address] Dr. Pratibha Stevenson Bacteria identified Cx Nom (U) NOT INDICATED Normal [facility] Comment on above: Performed By: #### C BC #### [facility] [address] [place] [address] Dr. Pratibha Stevenson CAST NONE SEEN Normal NONE SEEN [facility] Comment on above: Performed By: #### C BC #### [facility] [address] [place] [address] Dr. Pratibha Stevenson Crystals LM Nom (Urine sed) NONE SEEN Normal NONE SEEN [facility] Comment on above: Performed By: #### C BC #### [facility] [address] [place] [address] Dr. Pratibha Stevenson Epithelial cells LM Ql (Urine sed) FEW Abnormal NONE SEEN /RARE [facility] Comment on above: Performed By: #### C BC #### [facility] [address] [place] [address] Dr. Pratibha Stevenson MUCOUS TRACE Abnormal NONE SEEN [facility] Comment on above: Performed By: #### C BC #### [facility] [address] [place] [address] Dr. Pratibha Stevenson RBC (U) [#/Vol] /uL Abnormal 0-2 [facility] Comment on above: Performed By: #### C BC #### [facility] [address] [place] [address] Dr. Pratibha Stevenson WBC 2-5 Abnormal NONE SEEN [facility] Comment on above: Performed By: #### C BC #### [facility] [address] [place] [address] Dr. Pratibha Stevenson XR CHEST 1 Von [...] RAMO ZEPEDA Date: 2022-05-08 17:40 Normal [facility] CBC AUTO DIFFon 03-23-2022 BASO # 0.1 103/ul Normal 0.0-0.1 [facility] Comment on above: Performed By: #### C BC #### [facility] [address] [address] [address] Pratibha Stevenson Basophils/100 WBC (Bld) 0.9 % Normal 0.2-2.0 [facility] Comment on above: Performed By: #### C BC #### [facility] [address] [place] [address] Dr. Pratibha Stevenson EO # 0.1 103/ul Normal 0.0-0.7 [facility] Comment on above: Performed By: #### C BC #### [facility] [address] [place] [address] Dr. Pratibha Stevenson Eosinophils/100 WBC (Bld) 1.7 % Normal 0.9-7.0 [facility] Comment on above: Performed By: #### C BC #### [facility] [address] [place] [address] Dr. Pratibha Stevenson Erythrocyte distribution width (RBC) [Ratio] 12.3 % Normal 11.0-15.0 [facility] Comment on above: Performed By: #### C BC #### [facility] [address] [place] [address] Dr. Pratibha Stevenson Hematocrit (Bld) [Volume fraction] 47.2 % Normal 42.0-54.0 [facility] Comment on above: Performed By: #### C BC #### [facility] [address] [place] [address] Dr. Pratibha Stevenson Hemoglobin (Bld) [Mass/Vol] 16.0 g/dL Normal 14.0-18.0 [facility] Comment on above: Performed By: #### C BC #### [facility] [address] [place] [address] Dr. Pratibha Stevenson IG # 0.03 10e3/ul Normal 0.00-0.03 [facility] Comment on above: Performed By: #### C BC #### [facility] [address] [place] [address] Dr. Pratibha Stevenson IG % 0.4 % Normal 0.0-0.5 [facility] Comment on above: Performed By: #### C BC #### [facility] [address] [place] [address] Dr. Pratibha Stevenson LYMPH # 2.5 103/ul Normal 1.2-3.8 [facility] Comment on above: Performed By: #### C BC #### [facility] [address] [place] [address] Dr. Pratibha Stevenson Lymphocytes/100 WBC (Bld) 30.4 % Normal 20.5-60.0 [facility] Comment on above: Performed By: #### C BC #### [facility] [address] [place] [address] Dr. Pratibha Stevenson MANUAL DIFF REQ NO Normal [facility] Comment on above: Performed By: #### C BC #### [facility] [address] [place] [address] Dr. Pratibha Stevenson MCH (RBC) [Entitic mass] 30.9 pg Normal 25.9-34.0 [facility] Comment on above: Performed By: #### C BC #### [facility] [address] [place] [address] Dr. Pratibha Stevenson MCHC (RBC) [Mass/Vol] 33.9 g/dL Normal 29.9-35.2 [facility] Comment on above: Performed By: #### C BC #### [facility] [address] [place] [address] Dr. Pratibha Stevenson MCV (RBC) [Entitic vol] 91.3 fL Normal 80.0-94.0 [facility] Comment on above: Performed By: #### C BC #### [facility] [address] [place] [address] Dr. Pratibha Stevenson MONO # 0.6 103/ul Normal 0.3-0.8 [facility] Comment on above: Performed By: #### C BC #### [facility] [address] [address] [address] Pratibha Stevenson Monocytes/100 WBC (Bld) 7.6 % Normal 1.7-12.0 [facility] Comment on above: Performed By: #### C BC #### [facility] [address] [address] [address] Pratibha Stevenson NEUT # 4.8 103/ul Normal 1.4-6.5 [facility] Comment on above: Performed By: #### C BC #### [facility] [address] [place] [address] Dr. Pratibha Stevenson Neutrophils/100 WBC (Bld) 59.0 % Normal 43.0-75.0 [facility] Comment on above: Performed By: #### C BC #### [facility] [address] [place] [address] Dr. Pratibha Stevenson Platelet mean volume (Bld) [Entitic vol] 10.2 fL Normal 9.5-13.5 [facility] Comment on above: Performed By: #### C BC #### [facility] [address] [place] [address] Dr. Pratibha Stevenson PLT 258 103/ul Normal 150-450 [facility] Comment on above: Performed By: #### C BC #### [facility] [address] [place] [address] Dr. Pratibha Stevenson RBC 5.17 106/ul Normal 4.70-6.10 [facility] Comment on above: Performed By: #### C BC #### [facility] [address] [place] [address] Dr. Pratibha Stevenson WBC 8.1 103/ul Normal 4.0-11.0 [facility] Comment on above: Performed By: #### C BC #### [facility] [address] [place] [address] ABD/PELVIS WO CONon [...] SHARON GODINEZ Date: 2022-03-22 23:40 Normal [facility] PROF 14(COMP METB)on 022 Albumin [Mass/Vol] 4.2 g/dL Normal 3.4-5.0 [facility] Comment on above: Performed By: #### L ACT #### [facility] [address] [place] [address] Dr. Pratibha Stevenson Albumin/Globulin [Mass ratio] 1.2 {ratio} Normal [facility] Comment on above: Performed By: #### L ACT #### [facility] [address] [place] [address] Dr. Pratibha Stevenson ALP [Catalytic activity/Vol] 84 U/L Normal 46-116 [facility] Comment on above: Performed By: #### L ACT #### [facility] [address] [place] [address] Dr. Pratibha Stevenson ALT [Catalytic activity/Vol] 32 U/L Normal 16-63 [facility] Comment on above: Performed By: #### L ACT #### [facility] [address] [place] [address] Dr. Pratibha Stevenson Anion gap [Moles/Vol] 10.6 mmol/L Normal [facility] Comment on above: Performed By: #### L ACT #### [facility] [address] [place] [address] Dr. Pratibha Stevenson AST [Catalytic activity/Vol] 18 U/L Normal 15-37 [facility] Comment on above: Performed By: #### L ACT #### [facility] [address] [place] [address] Dr. Pratibha Stevenson Bilirubin [Mass/Vol] 0.4 mg/dL Normal 0.2-1.0 [facility] Comment on above: Performed By: #### L ACT #### [facility] [address] [place] [address] Dr. Pratibha Stevenson Calcium [Mass/Vol] 9.8 mg/dL Normal 8.5-10.1 [facility] Comment on above: Performed By: #### L ACT #### [facility] [address] [place] [address] Dr. Pratibha Stevenson Chloride [Moles/Vol] 103 mmol/L Normal 98-107 [facility] Comment on above: Performed By: #### L ACT #### [facility] [address] [place] [address] Dr. Pratibha Stevenson CO2 [Moles/Vol] 28.2 mmol/L Normal 21.0-32.0 [facility] Comment on above: Performed By: #### L ACT #### [facility] [address] [place] [address] Dr. Pratibha Stevenson Creatinine [Mass/Vol] 1.24 mg/dL Normal 0.70-1.30 [facility] Comment on above: Performed By: #### L ACT #### [facility] [address] [place] [address] Dr. Pratibha Stevenson EGFR-AF CITIZ[place] >60 Normal >=60 [facility] Comment on above: Performed By: #### L ACT #### [facility] [address] [place] [address] Dr. Pratibha Stevenson EGFR-NON AF CITIZEN [place] >60 Normal >=60 [facility] Comment on above: Performed By: #### L ACT #### [facility] [address] [address] [address] Pratibha Stevenson Globulin (S) [Mass/Vol] 3.6 g/dL Normal [facility] Comment on above: Performed By: #### L ACT #### [facility] [address] [address] [address] Pratibha Stevenson Glucose [Mass/Vol] 102 mg/dL Normal 74-106 [facility] Comment on above: Performed By: #### L ACT #### [facility] [address] [address] [address] Pratibha Stevenson Potassium [Moles/Vol] 3.8 mmol/L Normal 3.5-5.1 [facility] Comment on above: Performed By: #### L ACT #### [facility] [address] [place] [address] Dr. Pratibha Stevenson Protein [Mass/Vol] 7.8 g/dL Normal 6.4-8.2 [facility] Comment on above: Performed By: #### L ACT #### [facility] [address] [place] [address] Dr. Pratibha Stevenson Sodium [Moles/Vol] 138 mmol/L Normal 136-145 [facility] Comment on above: Performed By: #### L ACT #### [facility] [address] [place] [address] Dr. Pratibha Stevenson Urea nitrogen [Mass/Vol] 18.0 mg/dL Normal 7.0-18.0 [facility] Comment on above: Performed By: #### L ACT #### [facility] [address] [place] [address] Dr. Pratibha Stevenson Urea nitrogen/Creatinine [Mass ratio] 14.5 mg/mg Normal [facility] Comment on above: Performed By: #### L ACT #### [facility] [address] [place] [address] Dr. Pratibha Stevenson Vital Signs Date Time Vital Sign Value Performing Clinician Faci lity 03-26-2024 09:05-0500 Body height 175.3 cm Armando Meek PA-C Work Phone: [employer] 03-26-2024 09:05-0500 Body mass index (BMI) [Ratio] 32.22 kg/m2 [facility] 03-26-2024 09:05-0500 Body weight 98.97 kg Armando Meek PA-C [facility] 03-26-2024 09:05-0500 Diastolic blood pressure 66 mm[Hg] Armando Meek [facility]-C [facility] 03-26-2024 09:05-0500 Heart rate 71 /min Armando Meek PA-C [facility] 03-26-2024 09:05-0500 Systolic blood pressure 124 mm[Hg] Armando Meek PA-C [facility] 03-02-2024 11:02-0400 Body temperature 98.8 [degF] Kym Vidal MD Work Phone: [employer] 03-02-2024 11:02-0400 Diastolic blood pressure 72 mm[Hg] Kym Vidal MD Work Phone: [employer] 03-02-2024 11:02-0400 Heart rate 83 /min Kym Vidal MD Work Phone: [employer] 03-02-2024 11:02-0400 Respiratory rate 16 /min Kym Vidal MD Work Phone: [employer] 03-02-2024 11:02-0400 SaO2% (BldA) [Mass fraction] 98 % Kym Vidal MD Work Phone: [employer] 03-02-2024 11:02-0400 Systolic blood pressure 120 mm[Hg] Kym Vidal MD Work Phone: [employer] 03-01-2024 03:44-0400 Body mass index (BMI) [Ratio] 31.82 kg/m2 Kym Vidal MD Work Phone: [facility] 03-01-2024 03:44-0400 Body weight 97.75 kg Kym Vidal MD Work Phone: [facility] 02-27-2024 00:30-0400 Body height 175.3 cm Kym Vidal MD Work Phone: [facility] 07-21-2022 08:57-0400 Blood Pressure Location Shirley Lue [facility] 07-21-2022 08:57-0400 Diastolic blood pressure 69 mm[Hg] Shirley Lue [facility] 07-21-2022 08:57-0400 Heart rate 74 /min Shirley Lue [facility] 07-21-2022 08:57-0400 Systolic blood pressure 133 mm[Hg] Shirley Lue [facility] 07-13-2022 09:17-0400 Blood Pressure Location Shirley Lue [facility] 07-13-2022 09:17-0400 Diastolic blood pressure 68 mm[Hg] Shirley Lue [facility] 07-13-2022 09:17-0400 Heart rate 73 /min Shirley Lue [facility] 07-13-2022 09:17-0400 Systolic blood pressure 124 mm[Hg] Shirley Lue [facility] [place] Encounters Encounter Date Encounter Type Care Provider Facility Start: 04-05-2024 End: 04-05-2024 Telephone encounter Diana Ledbetter HOSPICE NURSE PRACTITIONER [facility] Start: 04-01-2024 End: 04-01-2024 Telephone encounter [facility] Comment on above: information wrong on referral Start: 03-27-2024 End: 04-03-2024 Telephone encounter [facility] Comment on above: prior authorization Start: 03-26-2024 End: 03-26-2024 ambulatory ARMANDO MEEK [facility] Start: 03-26-2024 End: 03-26-2024 Office outpatient new 60 minutes Armando COREY-C Work Phone: [facility] Comment on above: Seizure (CMS-HCC) (P rimary Dx); Migraine without aura and without status migrainosus, not intractable; Status migrainosus; Recurrent syncope; Pancytopenia (CMS-HCC); Functional tremor Start: 03-25-2024 End: 03-25-2024 Telephone encounter [facility] Comment on above: REFERRAL Start: 02-27-2024 End: 03-02-2024 Evaluation and management of inpatient Kym Vidal MD Work Phone: [facility] Comment on above: Pancytopenia (HCC) ( Primary Dx); Hip pain, unspecified laterality Start: 02-26-2024 End: 02-26-2024 Emergency department patient visit [facility] Start: 06-14-2023 End: 06-14-2023 [address] [facility] Start: 06-14-2023 End: 06-14-2023 Subsequent hospital visit by physician Manjit [facility] Comment on above: Arrived Start: 06-12-2023 End: 06-12-2023 ambulatory LATRICIA [facility] Start: 06-12-2023 End: 06-12-2023 Subsequent hospital visit by physician Manjit MCDOWELL [facility] Comment on above: Arrived Start: 06-09-2023 End: 06-09-2023 ambulatory JON [facility]YNOSO [facility] Start: 06-09-2023 End: 06-09-2023 Subsequent hospital visit by physician Flash Goodwin [employer] [facility] Comment on above: Arrived Start: 06-05-2023 End: 06-05-2023 ambulatory [facility] Start: 05-31-2023 End: 05-31-2023 ambulatory [facility] Start: 05-29-2023 End: 05-29-2023 ambulatory [facility] Start: 05-26-2023 End: 05-26-2023 ambulatory [facility] Start: 05-22-2023 End: 05-22-2023 ambulatory J[facility] Start: 05-17-2023 End: 05-17-2023 ambulatory [facility] Start: 03-13-2023 End: 03-13-2023 ambulatory [facility] Start: 08-11-2022 End: 08-11-[address] LATRICIA GARCIA . Facility:[facility] Start: 07-22-2022 End: 07-23-[address] LATRICIA GARCIA . Facility:[facility] Start: 07-21-2022 End: 07-22-2022 ambulatory Shirley Murrell Facility:[facility] Start: 07-21-2022 End: 07-21-2022 Patient encounter procedure Shirley Murrell [facility]e Start: 07-20-2022 End: 07-20-[address] LATRICIA GARCIA . Facility: Start: 07-13-2022 End: 07-14-2022 ambulatory Shirley Murrell Facility:[facility] Start: 07-13-2022 End: 07-13-2022 Patient encounter procedure Shirley Murrell [facility] Start: 07-06-2022 End: 07-07-2022 ambulatory SHIRLEY MURRELL . Facility: Start: 05-23-2022 End: 05-24-2022 ambulatory Shirleyirina Murrell Facility:[facility] Start: 05-23-2022 End: 05-23-2022 Patient encounter procedure Shirley Murrell [facility] Start: 05-11-2022 End: 05-12-2022 ambulatory Shirley ZionJoselin Holdenlala Facility::[id number] Start: 05-08-2022 End: 05-12-[address] [...] 03-02-2024 Basic metabolic panel calcium total Maureen Wardmer DO Work Phone: Start: 03-02-2024 GLOMERULAR FILTRATION RATE, ESTIMATED Maureen Hampton DO Work Phone: Start: 03-02-2024 SCAN OF BLOOD SMEAR Jenny Alvarez APRN - [employer]BI[employer] H[employer]ES REPAIRER Work Phone: Start: 03-01-2024 Rhythm ecg 1-3 leads w/interpretation & report Unknown Provider Result Start: 03-01-2024 MYELOID MALIGNANCIES MUTATION PANEL Ruth Wyman MD Work Phone: Start: 03-01-2024 Diagnostic bone marrow biopsies Jenny Alvarez APRN - MOBILE HOMES REPAIRER Work Phone: Start: 03-01-2024 Rhythm ecg 1-3 leads w/interpretation & report Unknown Provider Result Start: 03-01-2024 Blood count complete auto&auto difrntl wbc Jenny Alvarez APRN - MOBILE HOMES REPAIRER Work Phone: Start: 03-01-2024 SCAN OF BLOOD SMEAR Jenny Schultzes MACHINE OPERATOR FARMWORKER - [facility] Work Phone: Start: 02-29-2024 End: 02-29-2024 Ecg routine ecg w/least 12 lds i&r only Ruth Wyman MD Work Phone: Start: 02-29-2024 Blood smear peripheral interp phys w/writ report Jenny Alvarez MACHINE OPERATOR FARMWORKER - [facility] Work Phone: Start: 02-29-2024 DIAGNOSTIC QUAL BCR-ABL1 ASSAY W REFLEX TO P190 OR P210 QUANT ASSAYS Jenny Alvarez MACHINE OPERATOR FARMWORKER - [facility] Work Phone: Start: 02-29-2024 Calcium ionized Maureen Wei Forbes D O Work Phone: Start: 02-29-2024 Anion [...] VIRUS (EBV) ANTIBODY PANEL I Yasmin Ambrosio MACHINE OPERATOR FARMWORKER - [facility] Work Phone: Start: 02-28-2024 Mri brain brain stem w/o w/contrast material Jenny Gunter MACHINE OPERATOR FARMWORKER - [facility] Work Phone: Start: 02-28-2024 End: 02-28-2024 Ecg [...] Start: 02-28-2024 Anion gap [Moles/Vol] Jenny Gunter MACHINE OPERATOR FARMWORKER - [employer] REPAIR[employer] Work Phone: Start: 02-28-2024 GLOMERULAR FILTRATION RATE, ESTIMATED Jenny Gunter MACHINE OPERATOR FARMWORKER - [employer]BI[employer] H[employer]ES REPAIRER Work Phone: Start: 02-28-2024 Lactate dehydrogenase ldh Ruth Wyman MD Work Phone: Start: 02-27-2024 VITAMIN B12 & FOLATE Yasmin Ambrosio MACHINE OPERATOR FARMWORKER - [employer] REPAIR[employer] Work Phone: Start: 02-27-2024 EEG 24 HOUR AMBULATORY Jenny Gunter MACHINE OPERATOR FARMWORKER - [employer]BI[employer] REPAIRER Work Phone: Start: 02-27-2024 Electroencephalogram w/rec awake&asleep Jenny Gunter MACHINE OPERATOR FARMWORKER - [employer]BI[employer] REPAIRER Work Phone: Start: 3 End: 02-27-2024 C-reactive protein Barak Colon MD Work Phone: Start: 02-27-2024 End: 02-27-2024 Calcium ionized Jenny Gunter AP RN - MOBILE HOMES REPAIRER Work Phone: Start: 02-27-2024 REFERENCE LAB SAMPLE Jenny Gunter A PRN - MOBILE HOMES REPAIRER Work Phone: Start: 02-27-2024 Urnls dip stick/tablet reagent auto microscopy Jenny Gunter MACHINE OPERATOR FARMWORKER - [employer]BI[employer] H[employer] REPAIRER Work Phone: Start: 02-27-2024 End: 02-27-2024 Rhythm ecg 1-3 leads w/interpretation & report Unknown Provider Result Start: 05-23-2022 Cystoscopic removal of ureteric stent Shirley Murrell Start: 05-08-2022 Cystoscopic laser lithotripsy of ureteric calculus Shirley Murrell Plan of Treatment Date Care Activity Detail Author Start: 03-26-2025 Adult BMI Screening Adult BMI Screening [facility] Start: 03-26-2025 Depression Screening Depression Screening [facility] Start: 04-19-2024 End: 04-19-2024 Patient encounter procedure 04/19/2024 9:00 AM EST Office Visit [facility] [address] [place] [phone] Armando Meek, PAJorge LC [address] [address] [place] [phone] [facility] Start: 04-12-2024 End: 04-12-2024 Patient encounter procedure 04/12/2024 3:30 PM EST Office Visit [facility] - Medical Oncology [address] [place] [phone] Graham Ceja MD [address] [place] [address] [address] [place] [phone] [facility] - Medical Oncology Start: 04-08-2024 End: 04-08-2024 Patient encounter procedure 04/08/2024 10:30 AM EST Office Visit [facility] [address] [phone] Lisa Ceballos MD [address] [place] [address] [facility] Start: 04-03-2024 End: 04-03-2024 Patient encounter procedure 04/03/2024 1:00 PM EST Appointment [facility] - Neurophysiology [address] [place] [phone] [facility] - Neurophysiology Start: 04-01-2024 End: 03-02-2025 Vitamin B12 & Folate Vitamin B12 & Folate Lab Routine Pancytopenia (HCC) Expected: 04/01/2024 (Approximate), Expires: 03/02/2025 [facility] Comment on above: Expected: 04/01/2024 (Approximate), Expi res: 03/02/2025 Start: 03-26-2024 End: 03-26-2024 Patient encounter procedure 03/26/2024 9:00 AM EST Office Visit [facility] [address] [place] [address] Armando Meek, ADRIANNA [address] [place] [phone] [facility] Start: 03-02-2024 End: 03-02-2025 CBC panel - Blood by Automated count CBC Lab Routine Pancytopenia (HCC) Expected: 03/02/2024 (Approximate), Expires: 03/02/2025 [facility] Comment on above: Expected: 03/02/2024 (Approximate), Expi res: 03/02/2025 Start: 12-31-2023 COVID-19 Vaccine ( season) COVID-19 Vaccine ( season) [facility] Start: 12-31-2023 Influenza vaccination Influenza Vaccine [facility] Start: 11-30-2023 Influenza vaccination Flu vaccine (#1) [facility] Start: 06-26-2023 End: 06-26-2023 Patient encounter procedure 06/26/2023 2:30 PM EST Appointment [facility] Physical Therapy [address] [place] [phone] Manjit Waller [facility] Physical Therapy Start: 06-23-2023 End: 06-23-2023 Patient encounter procedure 06/23/2023 1:45 PM EST Appointment [facility] Physical Therapy [address] [place] [phone] Flash Goodwin PTA [facility] Physical Therapy Start: 06-19-2023 End: 06-19-2023 Patient encounter procedure 06/19/2023 3:15 PM EST Appointment [facility] Physical Therapy [address] [place] [phone] Manjit Waller [facility] Physical Therapy Start: 06-14-2023 End: 06-14-2023 Patient encounter procedure 06/14/2023 3:30 PM EST Appointment [facility] Physical Therapy [address] [place] [phone] Manjit Waller [facility] Physical Therapy Start: 06-12-2023 End: 06-12-2023 Patient encounter procedure 06/12/2023 3:15 PM EST Appointment [facility] Physical Therapy [address] [place] [phone] Manjit Waller [facility] Physical Therapy Start: 11-29-2022 Influenza vaccination Flu vaccine (#1) [facility] Start: 08-18-2011 DTaP,Tdap and Td Vaccines (1 - Tdap) DTaP,Tdap and Td Vaccines (1 - Tdap) [facility] Start: 2010 Adult BMI Follow Up Plan Adult BMI Follow Up Plan [facility] Start: 2010 Adult BMI Screening Adult BMI Screening [facility] Start: 2010 Hepatitis C screening Hepatitis C screen [facility] Start: 08-18-2007 HIV screening HIV screen [facility] Start: 2005 Varicella vaccine (1 of 2 - 13+ 2-dose series) Varicella vaccine (1 of 2 - 13+ 2-dose series) [facility] Start: 2004 Depression Screen Depression Screen [facility] Start: 2004 Depression Screening Depression Screening [facility] Start: 2004 Tobacco Screening Tobacco Screening [facility] Start: 08-18-2003 DTaP,Tdap and Td Vaccines (6 - Tdap) DTaP,Tdap and Td Vaccines (6 - Tdap) [facility] Start: 08-18-2003 DTaP/Tdap/Td vaccine (6 - Tdap) DTaP/Tdap/Td vaccine (6 - Tdap) [facility] Start: 1998 Pneumococcal 0-64 years Vaccine (1 of 2 - PCV) Pneumococcal 0-64 years Vaccine (1 of 2 - PCV) [facility] Start: 1993 Varicella vaccine (1 of 2 - 2-dose childhood series) Varicella vaccine (1 of 2 - 2-dose childhood series) [facility] Start: 02-16-1993 COVID-19 Vaccine (#1) COVID-19 Vaccine (#1) [facility] End: 03-03-2024 CBC W Auto Differential panel - Blood CBC with Auto Differential Lab Routine Daily for 3 Days starting 03/01/2024 until 03/03/2024, 2 completed [facility] Comment on above: Daily for 3 Days starting 03/01/2024 unt il 03/03/2024, 2 completed End: 03-01-2024 Chromosome analysis, bone marrow [facility] Comment on above: Once for 1 Occurrences starting 03/01/20 until 03/01/2024 Diagnostic Qual BCR- ABL1 Assay w Reflex to p190 or p210 Quant Assaysantitative Assays Diagnostic Qual BCR-ABL1 Assay w Reflex to p190 or p210 Quant Assaysantitative Assays Lab Routine 02/29/2024 5:30 PM EDT [facility] End: 03-26-2025 EEG EEG Neurology Routine Seizure ([facility]) Recurrent syncope 1 Occurrences starting 03/26/2024 until 03/26/2025 [facility] Work Phone: Comment on above: 1 Occurrences starting 03/26/2024 until 03/26/2025 End: 02-29-2024 Flow Cytometry Leukemia/Lymphoma, Bone Marrow Flow Cytometry Leukemia/Lymphoma, Bone Marrow Lab Routine One Time for 1 Occurrences starting 02/29/2024 until 02/29/2024 [facility] Comment on above: One Time for 1 Occurrences starting 01/31 until 02/29/2024 End: 03-01-2024 Flow Cytometry Leukemia/Lymphoma, Bone Marrow [facility] Comment on above: Once for 1 Occurrences starting 03/01/20 until 03/01/2024 End: 03-02-2024 Leukemia / lymphoma phenotype [facility] Work Phone: Comment on above: One Time for 1 Occurrences starting 06/2023 until 03/02/2024 End: 03-01-2024 Myeloid Malignancies Mutation Panel [facility] Comment on above: One Time for 1 Occurrences starting 05/2023 until 03/01/2024 Oxygen therapy [[facility] Data Set] Initiate Oxygen Therapy Protocol Respiratory Care Routine As Needed until discontinued starting [facility]27/2024 [facility] Comment on above: As Needed until discontinued starting Immunizations Immunization Date Immunization Notes Care Provider Khushbu thao 12-26-1997 DTaP, unspecified formulation Shirley Lue [facility] 12-26-1997 measles, mumps and rubella virus vaccine Shirley Lue [facility] 01-10-1994 DTaP, unspecified formulation Shirley Lue [facility] 01-10-1994 hepatitis B vaccine, pediatric or pediatric/adolescent dosage Shirley Lue [facility] 01-10-1994 Hib, unspecified formulation Shirley Lue [facility] 01-10-1994 measles, mumps and rubella virus vaccine Shirley Lue [facility] 03-12-1993 Hib, unspecified formulation Shirley Lue [facility] 01-01-1993 hepatitis B vaccine, pediatric or pediatric/adolescent dosage Shirley Lue [facility] 01-01-1993 Hib, unspecified formulation Shirley Lue [facility] 1992 hepatitis B vaccine, pediatric or pediatric/adolescent dosage Shirley Murrell [facility] 1992 Hib, unspecified formulation Shirley Murrell [facility] Payers Date Payer Category Payer Medicaid [place] [id number] 1992 Unknown [id number] [id number] 1992 Unknown [id number] 2.16.840.1.904876.3.579.2.727 1992 Unknown [id number] 2.16.840.1.997881.3.579.2.727 1992 Unknown [id number] 2.16.840.1.485688.3.579.2.727 1992 Unknown [id number] 2.16.840.1.862933.3.579.2.593 1992 Unknown [id number] 2.16.840.1.455689.3.579.2.593 1992 Unknown [id number] 2.16.840.1.939177.3.579.2.593 1992 Unknown [id number] 2.16.840.1.732437.3.579.2.593 1992 Unknown [id number] 2.16.840.1.330942.3.579.2.593 1992 Unknown [id number] 2.16.840.1.323628.3.579.2.593 1992 Unknown [id number] 2.16.840.1.561842.3.579.2.173 1992 Unknown [id number] 2.16.840.1.624967.3.579.2.173 1992 Unknown [id number] 2.16.840.1.913369.3.579.2.173 1992 Unknown [id number] 2.16.840.1.701958.3.579.2.173 1992 Unknown [id number] 2.16.840.1.716707.3.579.2.173 1992 Unknown [id number] 2.16.840.1.689071.3.579.2.173 1992 Unknown [id number] 2.16.840.1.454435.3.579.2.173 1992 Unknown [id number] 2.16.840.1.691632.3.579.2.173 1992 Unknown [id number] 2.16.840.1.548661.3.579.2.173 1992 Unknown [id number] 2.16.840.1.785276.3.579.2.173 1992 Unknown [id number] 2.16.840.1.405349.3.579.2.173 1992 Unknown [id number] 2.16.840.1.895356.3.579.2.1286 1957 Medicaid [id number] 1957 Self-pay [id number] Self-pay Social History Date Type Detail Facility Tobacco smoking status [facility] Start: 06-11-2020 End: 02-27-2024 Sex Assigned At Male [facility] Start: 07-13-2022 End: 07-21-2022 Tobacco smoking status Light tobacco smoker (finding) [facility] Tobacco smoking status Never [facility] Tobacco smoking stat [facility] Tobacco smoking consumption unknown [facility] Start: 1992 Sex Assigned At Not on file B [facility] [employer] Start: 02-26-2024 [facility] [employer] Start: 01-30-2024 History of tobacco use Cigarette Smo ker [facility] Start: 02-26-2024 End: 03-26-2024 Tobacco use and exposure Former smokeless tobacco user [employer] Start: 03-01-2024 End: 04-05-2024 Alcoholic beverage intake Ex-drinker (finding) [employer] Start: 06-11-2020 End: 02-27-2024 History of Social function [facility] Has the [employer], [employer], or water [employer] threatened to shut off services in your home in past 12Mo No [place] [facility] (I/We) worried fanta (my/our) food would run out before (I/we) got money to buy more. Never true [employer] Start: 12-04-2014 Sex Male (finding) [facility] Start: 03-26-2024 Tobacco smoking stat [facility] Ex-smoker [facility] Start: 01-30-2024 History of tobacco use Current smoke r [facility] Functional Status Date Assessment Result Facility 07-21-2022 Functional Status N/A [facility] 07-13-2022 Functional Status N/A [facility] 05-12-2022 Functional Status N/A [facility] Clinical Notes 05-26-2022 to 04-05-2024 Telephone Encounter - Diana Ledbetter CMA - 04/05/2024 2:35 PM ESTTelephone Encounter - Diana Ledbetter, SALMA - 04/05/2024 2:35 PM ESTTelephone Encounter - Stefani Doshi - 04/01/2024 2:24 PM EST Note Date & Type Note Facility 04-05-2024 Miscellaneous Notes Called patient to remind them to bring their most current copy of their medication list with them to their appt. Patient verbalizes understanding. documented in this encounter [facility] 04-05-2024 Telephone encounter Note Called patient to remind them to bring their most current copy of their medication list with them to their appt. Patient verbalizes understanding. [facility] 04-01-2024 Miscellaneous Notes Images from the original note were not included. Patient called to state the referral to the Praveen Ceja MD in [place]. Patient states he has called several times and left message with a call back. When looking up the doctors information she appears to be at [facility]. Patient is looking for a doctor in [place]. Please advise Ethan Contact Information [phone] ( Provider located at both [facility] and [facility] in [place]. Patient has been notified of below message and voiced understanding. Patient left a message for the [place] location and has not yet heard a response. Building Maintenance Custodian informed patient if there is still no response by end of week to give the clinic a call back. documented in this encounter [facility] 04-01-2024 Telephone encounter Note Images from the original note were not included. Patient called to state the referral to the Praveen Ceja MD in [place]. Patient states he has called several times and left message with a call back. When looking up the doctors information she appears to be at [facility]. Patient is looking for a doctor in [place]. Please advise Ethan Contact Information [phone] ( [facility] [employer] 04-01-2024 Telephone encounter Note Provider located at both [facility] and [facility] in [place]. [facility] 04-01-2024 Telephone encounter Note Patient has been notified of below message and voiced understanding. Patient left a message for the [place] location and has not yet heard a response. Building Maintenance Custodian informed patient if there is still no response by end of week to give the clinic a call back. [facility] 03-27-2024 Miscellaneous Notes Patient stated that Armando Meek submitted a prior authorization on 03/26/2024 for the Nurtec. However, Federico stated that it did not go through correctly. Please advise Medication Refill request: (IF ARMANDO MEEK WANTS HIM TO CONTINUE THIS MEDICATION, THEN HE WILL NEED A REFILL) Medication Name and Strength:HYDROcodone-acetaminophe n (NORCO) 5-325 mg per tablet Current dose & Frequency: TAKE 1 TABLET BY MOUTH EVERY 6 HOURS NEEDED FOR PAIN (TAKE lowest dose possible to manage pain max DAILY amount FOUR TABLETS) actually taking - not what is listed on the prescription label 30 day or 90 day supply preferred: unknown Pharmacy Name: [facility] If already on preferred pharmacy list - name only If new pharmacy - specify address & phone number Request was made by: PA is needed for Nurtec. Medication listed is incorrect. RN has submitted a PA on [facility]. Herrera: BYLVWUNU Patient called stating that he has been experiencing a migraine for about a month since his seizure. Patient is requesting another medication other than Nurtec due to pharmacy not prescribing medication due to a PA. Patient states that if he does not get a medication prescribed by this afternoon that he will be going to [place] [facility] for a migraine cocktail. Please Advise. Pharmacy: [id number] - [place], [place] - Best Contact: Patient was informed a PA was submitted, however, the clinic is awaiting response from insurance. The patient is wanting to know if there is any other medication he can take in the meantime until a response is received for the Nurtec. Continue with the prescribed Topiramate and I will send in a course of Prednisone in the meantime while the PA for Nurtec ODT is being completed. - [facility] Nurtec was denied. RN will submit an appeal as denial states patient must try 2 preferred medications. RN listed sumatriptan and Rizatriptan and it was overlooked. Denial also states that the max amount is 8 tabs/30 days, which this RN also listed in the PA request. Patient was updated on status of PA and voiced understanding. Patient wanted to update Jassi that he had 3 seizures over the weekend and was taken to [facility]. He was provided with a medication that aborted his migraine. Patient is unsure the name of if but will look at his records and notify clinic. Patient stated he has a slight headache still but it is much better than previously. He would still like to start Prednisone but will need script sent to [facility] in [place] instead. Appeal Nurtec as stated; thank you. Continue with Topiramate. Will resend Prednisone to desired Pharmacy location. - [facility] documented in this encounter [facility] [facility] 03-27-2024 Telephone encounter Note Patient stated that Armando Meek submitted a prior authorization on 03/26/2024 for the Nurtec. However, Federico stated that it did not go through correctly. Please advise Medication Refill request: (IF ARMANDO MEEK WANTS HIM TO CONTINUE THIS MEDICATION, THEN HE WILL NEED A REFILL) Medication Name and Strength:HYDROcodone-acetaminophe n (NORCO) 5-325 mg per tablet Current dose & Frequency: TAKE 1 TABLET BY MOUTH EVERY 6 HOURS NEEDED FOR PAIN (TAKE lowest dose possible to manage pain max DAILY amount FOUR TABLETS) actually taking - not what is listed on the prescription label 30 day or 90 day supply preferred: unknown Pharmacy Name: [facility] If already on preferred pharmacy list - name only If new pharmacy - specify address & phone number [facility] Tele[facility] encounter Note PA is needed for Nurtec. Medication listed is incorrect. RN has submitted a PA on [facility]. Herrera: BYLVWUNU [facility] Telephone encounter Note Patient called stating that he has been experiencing a migraine for about a month since his seizure. Patient is requesting another medication other than Nurtec due to pharmacy not prescribing medication due to a PA. Patient states that if he does not get a medication prescribed by this afternoon that he will be going to [facility] for a migraine cocktail. Please Advise. Pharmacy: [id number] - [place], [place] - Best Contact: [employer] [facility] 03-27-2024 Telephone encounter Note Patient was informed a PA was submitted, however, the clinic is awaiting response from insurance. The patient is wanting to know if there is any other medication he can take in the meantime until a response is received for the [facility] 03-27-2024 Telephone encounter Note Continue with the prescribed Topiramate and I will send in a course of Prednisone in the meantime while the PA for [facility] is being completed. - [facility] 03-27-2024 Telephone encounter Note [facility]. RN will submit an appeal as denial states patient must try 2 preferred medications. RN listed sumatriptan and Rizatriptan and it was overlooked. Denial also states that the max amount is 8 tabs/30 days, which this RN also listed in the PA request. Patient was updated on status of PA and voiced understanding. Patient wanted to update Jassi that he had 3 seizures over the weekend and was taken to [facility]. He was provided with a medication that aborted his migraine. Patient is unsure the name of if but will look at his records and notify clinic. Patient stated he has a slight headache still but it is much better than previously. He would still like to start Prednisone but will need script sent to [facility] in [place] instead. [facility] [employer] 03-27-2024 Telephone encounter Note Appeal [facility] as stated; thank you. Continue with Topiramate. Will resend Prednisone to desired Pharmacy location. - [facility] [employer] [facility] 03-26-2024 History of Present illness Narrative [facility] Neurology Office Note 03/25/2024 3:01 PM Patient info: Ethan Donald is a 33 y.o. male Account No.: [id number] Acct: : 1990 PCP: LATRICIA GARCIA MD [...] checking in at a Neurology office in [facility], he suddenly lost consciousness, so EMS arrived and took him to [facility] for further evaluation. [facility] from 02/26/24-03/02/24. [facility] inpatient Neurology service was consulted. 24 hr. [...] approximately 12 yrs ago (-) hx of RIVET MAKER infection: (-) hx of stroke/cerebrovascular malformation: (-) [...] PA-C 03/26/24 1209 [facility] Miscellaneous Notes Please ask the following questions to the new patient that you are schedulin. IS THIS DUE TO AN ACCIDENT? -NO 2. IS THIS WORKER'S COMP? PLEASE VERIFY IF THIS IS WORKERS COMP AND DOCUMENT (We do not accept any new workers comp cases) - NO 3. WHAT INSURANCE? - MEDICAID WILL BE GETTING [facility] 4. HAVE YOU EVER BEEN SEEN BY A NEUROLOGIST BEFORE? IF YES, WHO AND WHEN? IS THIS A SECOND OPINION? - NO 5. ANY CHANCE OF NOW OR BEFORE YOUR APPOINTMENT? N/A - 6. OFFERED JOSE FOR SOONER APPOINTMENT? -YES 7. PATIENT IS SCHEDULED ON/WITH: - ARMANDO MEEK 8. WHO CALLED TO SCHEDULE APPOINTMENT? PATIENT - documented in this encounter [facility] 03-25-2024 Telephone encounter Note Please ask the following questions to the new patient that you are schedulin. IS THIS DUE TO AN ACCIDENT? -NO 2. IS THIS WORKER'S COMP? PLEASE VERIFY IF THIS IS WORKERS COMP AND DOCUMENT (We do not accept any new workers comp cases) - NO 3. WHAT INSURANCE? - MEDICAID WILL BE GETTING [facility] 4. HAVE YOU EVER BEEN SEEN BY A NEUROLOGIST BEFORE? IF YES, WHO AND WHEN? IS THIS A SECOND OPINION? - NO 5. ANY CHANCE OF NOW OR BEFORE YOUR APPOINTMENT? N/A - 6. OFFERED JOSE FOR SOONER APPOINTMENT? -YES 7. PATIENT IS SCHEDULED ON/WITH: - ARMANDO MEEK 8. WHO CALLED TO SCHEDULE APPOINTMENT? [facility] 03-02-2024 History of Present illness Narrative Discharge [...] per family. Pt supplied with walker from [facility]. TRANSFER - OUT REPORT: Verbal report given [...] father has delta granule pool deficiency. Dr. Ricardo notified. Images from the original note were not included. Hospitalist Progress Note Internal Medicine Resident Patient: Ethan Donald 33 y.o. male [facility] Ad[facility] Date: 02/27/2024 ASSESSMENT AND PLAN Active [...] fibromyalgia, tobacco use disorder who presented to [facility] on 02/27/2024 for evaluation of loss of [...] Mendoza. 0904 Samples collected and given to distance learning administrator for further review. 0906 Procedure completed; patient [...] Multiple personality disorder, Fibromyalgia who presented to [facility] on 02/26 with chief complaint of loss of consciousness. Directly admitted from [facility]. Reported on 02/22 having seizure while [...] overnight. Hemodynamically stable. Complains right sided intermittent BROOSK. Denies CP, SOB, fever, headache, fever, lightheadedness,nausea/vomiting, [...] Service - 02/29/2024 Neurology Progress Note Date:02/29/2024 Room:[address] [place] [address] Patient Name:Ethan Donald Date of :1990 Age:33 y.o. CC: No chief complaint on file. Subjective Ethan Donald is a 33 y.o. male with a history of Multiple Personality Disorder, Fibromyalgia and Marijuana and Tobacco dependence who presented to [facility] after passing out at his psychiatrist office; transferred to [facility] on 02/26/2024 for neurology evaluation. Patient reports [...] of Arthritis, Fibromyalgia, Multiple personalities (HCC), and Pangburn-Schlatter's disease. Social History: reports that he has [...] time. Motor: Motor strength is normal. Coordination: Xaonfi-Nakg-Oouwqb Test and Heel to Gutierrez Test normal. [...] or concerns. This was discussed with Dr. Veilz and he is in agreement with the assessment and plan. Images from the original note were not included. Hospitalist Progress Note Internal Medicine Resident Patient: Ethan Donald 33 y.o. male Unit/Bed: 4A-03/003-A Admit Date: 02/27/2024 ASSESSMENT AND PLAN Active [...] Multiple personality disorder, Fibromyalgia who presented to [facility] on 02/26 with chief complaint of loss of consciousness. Directly admitted from [facility]. Reported on 02/22 having seizure while [...] Service - 02/28/2024 Neurology Progress Note Date:02/28/2024 Room:[address] [place] [address] Patient Name:Ethan Donald Date of :1990 Age:33 y.o. CC: No chief complaint on file. Subjective Ethan Donald is a 33 y.o. male with a history of Multiple Personality Disorder, Fibromyalgia and Marijuana and Tobacco dependence who presented to [facility] after passing out at his psychiatrist office; transferred to [facility] on 02/26/2024 for neurology evaluation. Patient reports [...] of Arthritis, Fibromyalgia, Multiple personalities (HCC), and Pangburn-Schlatter's disease. Social History: reports that he has [...] time. Motor: Motor strength is normal. Coordination: Mbzehh-Kvpm-Tkhqyw Test and Heel to Gutierrez Test normal. [...] LIVER PROFILE: Recent Labs 02/26/24 1258 02/28/24 05 AST 54* 45* ALT 45 39 BILIDIR [...] plan. Spiritual Health History and Assessment/Progress Note [facility] (P) Advance Care Planning, , , Name: Ethan Donald Age: 33 y.o. Sex: male Language: Maori Yazidism: None New onset seizure (HCC) Date: 02/28/2024 Total Time Calculated: (P) 35 min Spiritual Assessment continued in [facility] 4A Referral/Consult From: [...] of Hope, please send discharge medication to [facility]. Thank you! Misti Tineo CPhT - Prescription Assistance ([phone]) 02/27/2024,3:31 PM Assessment: Ethan is a 33 year old male resting in his bed alone, ca.lm. tired and awake. This visit is in response to a Spiritual Consult to discuss ACP document.Please see ACP note for detail [facility] Neurodiagnostic Rn Pediatric Worksheet EEG Date: 02/27/2024 Name: Ethan Donald : 1990 Age: 33 y.o. Sex: male CSN: [id number] Room/Location: [address] [place] [address] Ordering Provider: Brian Gunter EEG Number: [id number] [...] Deprived: Yes Seizures Observed: No Mentality: alert Conveyor System Dispatcher: Bahman Robledo 02/27/2024 [facility], Dr Del Angel. 33 yo new onset seizure, headache and syncopal episode. Wed. he had a seizure in his sleep, bit his tongue. Followed up with PCP and [facility]. At PCP appt today had a pain in head, passed out, came to ED. CT head without contrast nothing acute. No CT with contrast done because wasn't sure if he had contrast at [facility]. No ability to do MRI after 4PM. Questioning temporal arteritis , 60 mg solumedrol given, also given zofran . WBC 4.1, sed rate 17, CRP 81.9. Vials afebrile, 138/84, 92, 18, 97% on room air. documented in this encounter [facility] 03-02-2024 Hospital Discharge instructions Maureen Hampton DO - 03/02/2024 11:54 AM EDT Follow up with your family doctor in the next week. Continue to wear mask for a precaution when around family and friends. Follow up with Neurology, continue seizure precautions. Do not drive motor vehicles until you follow up and see neurology. 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 -met Medical Director Of Hospice Goals Time Frame for Prison Goals : 6 weeks Medical Director Of Hospice Goal 1: Patient to be independent and compliant with HEP. -met Medical Director Of Hospice Goal 2: Patient to have improved R knee AROM 0-120* with no increase in pain for improved mobility. -met (05/31/23 R knee AROM 0-130*) Prison Goal 3: Patient to have improved R LE strength >/=4/5 grossly all major joints and planes for improved knee stability with gait. Prison Goal 4: Pt to report ability to walk community distances with no AD and no gait deviations or increase in pain to return to PLOF. 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 Exercises: Exercise 2: Scifit x10 min Lvl 4.5--hills Exercise 3: Step stretches 3x30 ea, SB stretch 3x30 Exercise 5: Side stepping at counter x2 laps gym --BTB To8to walks - 2 big laps Exercise 6: [...] pain and improve R knee mobility. -met Prison Goals Time Frame for Prison Goals : 6 weeks Prison Goal 1: Patient to be independent and compliant with HEP. -met Prison Goal 2: Patient to have improved R knee AROM 0-120* with no increase in pain for improved mobility. -met (05/31/23 R knee AROM 0-130*) Medical Director Of Hospice Goal 3: Patient to have improved R LE strength >/=4/5 grossly all major joints and planes for improved knee stability with gait. Medical Director Of Hospice Goal 4: Pt to report ability to walk community distances with no AD and no gait deviations or increase in pain to return to PLOF. -progressing Minutes Tracking: Time In: 1515 Time Out: 1558 Minutes: 43 Timed Code Treatment Minutes: 41 Minutes Manjit Thorpe Date: 06/12/2023 documented in this encounter [facility] 07-21-2022 Hospital Discharge instructions Patient [...] include: ?Spinach. ?Rhubarb. ?Beets. ?Potato chips and qatari fries. ?Nuts. If you regularly take a diuretic medicine, make sure to eat at least 1 2 fruits or vegetables high in potassium each day. These include: ?Avocado. ?Banana. ?Millburn, prune, carrot, or tomato juice. ?Baked potato. [...] Casseroles. Pizza. Lasagna. Frozen meals. Potato chips. Armenian fries. Summary You can reduce your risk [...] 08/12/2011 Document Revised: 08/07/2019 Document Reviewed: 03/28/2017 [employer] Patient Education 2019 [facility] Follow Up Care 07/20/2022 16:11:07 With:Handy WILEY, DANA Llamas, RAFITA Address: When: Unknown [facility] Desiree 07-13-2022 Hospital Discharge instructions Patient [...] include: ?Spinach. ?Rhubarb. ?Beets. ?Potato chips and qatari fries. ?Nuts. If you regularly take a diuretic medicine, make sure to eat at least 1 2 fruits or vegetables high in potassium each day. These include: ?Avocado. ?Banana. ?Millburn, prune, carrot, or tomato juice. ?Baked potato. [...] Casseroles. Pizza. Lasagna. Frozen meals. Potato chips. Armenian fries. Summary You can reduce your risk [...] 08/12/2011 Document Revised: 08/07/2019 Document Reviewed: 03/28/2017 [employer] Patient Education 2020 [employer] Follow Up Care 05/23/2022 10:22:28 With:Handy WILEY, DANA Llamas, URO Address: When: Unknown [facility] 05-26-2022 Note [id number]:127 [facility] Evaluation + Plan note Future Appointments Appointment Date:07/13/2022 09:00:00 AM Scheduled Provider:Shirley Murrell MD Location:[facility] Appointment Type:URO Office Visit [facility] Evaluation note Diagnosis New onset seizure (HCC)- Primary Other convulsions Pancytopenia (HCC) Other pancytopenia Hip pain, unspecified laterality Pancytopenia (HCC) Other pancytopenia documented in this encounter [facility]* Diagnosis Seizure (CMS-HCC)- Primary Other convulsions Migraine without aura and without status migrainosus, not intractable Status migrainosus Variants of migraine, not elsewhere classified, without mention of intractable migraine without mention of status migrainosus Recurrent syncope Pancytopenia ([facility]-HCC) Functional tremor [facility] Diagnosis Status migrainosus- Primary Variants of migraine, not elsewhere classified, without mention of intractable migraine without mention of status migrainosus [facility] Narrative No data available for this section [facility] No data available for this section [facility] on filedocumented in this encounter [facility] filedocumented in this encounter [facility] on filedocumented in this encounter [facility] on filedocumented in this encounter [facility] on filedocumented in this encounter [facility] on filedocumented in this encounter [facility] No data available for this section [facility] Summary Purpose Family History No Family History Records FoundNo Family History Records FoundNo Family History Records FoundNo Family History Records FoundNo Family History Records Found Advance Directives Documents on File Type Date Recorded Patient Sanitation Engineer Expl anation ACP-Advance Directive 02/29/2024 2:09 PM Date Activated Date Inactivated Comments 02/27/2024 12:32 AM Healthcare Agents on File Name Relationship Healthcare Agent Relationshi p Communication Daisy Araujo Girlfriend Primary Decision Maker Hiren Donald Parent Secondary Decision Maker Additional Source Comments Patient Care team informatio n (unrecognized section and content) Wedding Planner Relationship Specialty Start Date End Date Latricia Garcia MD [address] [place] [address] PCP - General Family Medicine 02/16/23 Wedding Planner Relationship Specialty Start Date End Date Latricia Garcia MD [address] [place] [address] PCP - General Family Medicine 02/16/23 Wedding Planner Relationship Specialty Start Date End Date Latricia Garcia MD [address] [place] [address] PCP - General Family Medicine 02/16/23 Wedding Planner Relationship Specialty Start Date End Date Latricia Garcia MD PCP - General 09/15/17 Wedding Planner Relationship Specialty Start Date End Date Latricia Garcia MD PCP - General 09/15/17 Wedding Planner Relationship Specialty Start Date End Date Latricia Garcia MD PCP - General 09/15/17 Wedding Planner Relationship Specialty Start Date End Date Latricia Garcia MD PCP - General 09/15/17 Wedding Planner Relationship Specialty Start Date End Date Latricia Garcia MD PCP - General 09/15/17 Wedding Planner Relationship Specialty Start Date End Date Latricia Garcia MD PCP - General 09/15/17 (unrecognized sect ion and content) No Status Records FoundNo Status Records FoundNo Status Records FoundNo Status Records FoundNo Status Records Found INFORMATION SOURCE (unrecogn ized section and content) DATE CREATED AUTHOR 07/31/2022 Max Medrano [facility] DATE CREATED AUTHOR AUTHOR'S ORGANIZ ATION 09/13/2022 [facility] DATE CREATED AUTHOR AUTHOR'S ORGANIZ ATION 02/28/2024 [facility] DATE CREATED AUTHOR AUTHOR'S ORGANIZ ATION [facility]/23/2024 [facility] DATE CREATED AUTHOR AUTHOR'S ORGANIZ ATION 03/28/2024 [facility] Reason for Visit (unrecogniz ed section and content) Specialty Diagnoses / Procedures Referred By Genoveva bowers Referred To Contact Diagnoses New onset seizure (HCC) new onset seizure [facility] [address] [place] [address] [facility] [address] [place] [address] Referral ID Status Reason Start Date Expiration Date Visits Re quested Visits Authorized [id number] 1 1 Reason Onset Date Comments REFERRAL 03/25/2024 Reason Comments Seizures Patient is here toda y as a new patient for dx of Seizures. Patient states that he had a seizure about a month ago and has been having episodes of passing out ever since. Specialty Diagnoses / Procedures Referred By Genoveva bowers Referred To Contact Neurology Diagnoses Seizure ([facility]) Latricia Garcia MD [address] [place] [address] Phone: tel:[phone] fax: [facility] [address] [place] [address] Phone: tel: fax: Referral ID Status Reason Start Date Expiration Date Visits Requested Visits Authorized [id number] Pending Review Specialty Services Required 03/20/2025 1 1 Reason Onset Date Comments information wrong on referral 04/01/2024 Reason Onset Date Comments prior authorization 03/27/2024 Ordered Prescriptions (unrec ognized section and content) [...] Joanna Adame RN)1958 (Given - Provider: Sol Landis, RN) 0757 (Given - Provider: Joanna Adame, MARQUISE)2005 (Given - Provider: Rebecca Humphreys, RN) 075 (Given - Provider: Daphne Alonzo, MARQUISE)2100 (Due) PRN Medication Order 02/29/2024 03/01/2024 03/02/2024 [...] Adame RN)2007 (See Alternative - Provider: Sol Landis, MARQUISE) 09 (See Alternative - Provider: Joanna Adame RN)161 (See Alternative - Provider: Joanna Adame RN)2215 (See Alternative - Provider: Rebecca Humphreys, RN) acetaminophen (TYLENOL) tablet 650 mg(Linked Group 1) 650 mg, Oral, EVERY 6 HOURS PRN, Starting on Mon02/27/24 at 0032, Until Discontinued, Pain Mild (1-3), Fever, For temp greater than 100.4 F (38 C), Maximum dose of acetaminophen is 4000 mg from all sources in 24 hours. 1405 (Given - Provider: Joanna Adame RN)2007 (Given - Provider: Sol Landis RN) 09 (Given - Provider: Joanna Adame RN)161 (Given [...] 5 days. 0319 (Given - Provider: Neris Duff, RN)1024 (Given - Provider: Joanna Adame, RN)1633 (Given - Provider: Joanna Adame RN) 0004 (Given - Provider: Sol Landis, RN)0630 (Given - Provider: Nikki Morris, RN)1301 (Given - Provider: Joanna Adame, MARQUISE)2005 (Given - Provider: Rebecca Humphreys RN) 0210 (Canceled Entry - Provider: Rebecca Humphreys, [...] CrCl less than 30ml/min, On hold since [facility] 02/29/2024 at 1438 until manually unheld 1438 (Held by provider - Provider: Chapis Rizvi MD - Reason: Other) midazolam (VERSED) injection (COMPLETED) PRN, Starting on Mon03/01/24 at 0857, Until Mon03/01/24 at 0900, Intra-op 0857 (Given - Provider: Diana Reddy, RN)0900 (Given - Provider: Diana Reddy, MARQUISE) ondansetron (ZOFRAN) injection 4 mg(Linked Group 2) 4 mg, IntraVENous, EVERY 6 HOURS PRN, Starting on Mon02/27/24 at 0032, Until Discontinued, Nausea, Vomiting, Administer if oral route cannot be used. 0614 (See Alternative - Provider: Asim Mitchell RN)1753 (See Alternative - Provider: Joanna Adame RN) 0630 (See Alternative - Provider: Nikki Morris, MARQUISE)1616 (See Alternative - Provider: Joanna Adame, MARQUISE) 0018 (See Alternative - Provider: Rebecca Humphreys RN)0351 (See Alternative - Provider: Rebecca Humphreys RN)1116 (See Alternative - Provider: Daphne Alonzo, RN) ondansetron (ZOFRAN-ODT) disintegrating tablet 4 mg(Linked Group 2) 4 mg, Oral, EVERY 8 HOURS PRN, Starting on Mon02/27/24 at 0032, Until Discontinued, Nausea, Vomiting 0614 (Given - Provider: Asim Mitchell RN)1753 (Given - Provider: Joanna Adame RN) 0630 (Given - Provider: Nikki Morris, MARQUISE)1616 (Given - Provider: Joanna Adame RN) 0018 [...] BE BASED ON THE PRIMARY CLINICAL RECORDS. [facility] [employer] [facility] provides no warranty or guarantee of the accuracy or completeness of information in this document.
--- NOTE | 2024-04-10 00:53 | ECG_ITS ---
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
--- NOTE | 2024-04-10 00:57 | ED_ITS ---
HPI HPI - General Adult General Chief complaint: Chest Pain Stated complaint: CHEST PAIN, SOB Time Seen by Provider: 04/10/24 00:37 Source: patient and EMR Mode of arrival: Wheelchair Limitations: no limitations History of Present Illness HPI narrative: Patient presents to the ED stating a couple hours ago he had a syncopal episode around 11:30 PM tonight. He states sometimes it is preceded by dizziness but this time there was no preceding symptoms. This has been going on for about a month and a half and he reports frequent episodes of syncope. He has an event monitor in place and is being worked up by his order planner, neurologist and maintenance technician. He states that the symptoms sometimes will trigger migraine headaches and at this time he has a bitemporal headache with photophobia. He denies neck stiffness, chills or fever. Related Data Home Medications ?Medication ?Instructions ?Recorded ?Confirmed ferrous sulfate 325 mg (65 mg 325 mg PO DAILY 03/07/24 04/10/24 iron) tablet (FeroSul) lamotrigine 25 mg tablet mg 04/01/24 rizatriptan 10 mg tablet mg 04/01/24 topiramate 50 mg tablet mg 04/01/24 hydrocodone 5 mg-acetaminophen 325 tab 04/10/24 mg tablet ondansetron 4 mg disintegrating mg 04/10/24 tablet prednisone 10 mg tablet mg 04/10/24 Allergies Allergy/AdvReac Type Severity Reaction Status Date / Time naproxen Allergy Unknown Abdominal Verified 04/10/24 00:40 Pain Opioid HPI Opioid Management Most Recent Opioid Data: Last Pain Scale 5 04/10/24 04:24 04/10/24 Last ED Pain Assessment 04/10/24 04:24 Last MAR Pain Assessment 04/10/24 04:12 Ur Phencyclidine Scrn Negative (NEGATIVE) 04/10/24 01:35 03/31 05/24 Review of Systems ROS Status of ROS 10 or more systems reviewed and unremark able except as noted in history and below [facility] Social History Smoking status: Current every day smoker Little interest or pleasure in doing things: not at all Feeling down, depressed, or hopeless: not at all Exam Narrative Exam Narrative: Vital signs are as documented. Patient is shielding his eyes from the light due to photophobia. Pupils are equal and reactive. There is no facial asymmetry. He moves all extremities actively. HEENT exam is normal to inspection. Neck is supple. Lung sounds are clear to auscultation bilaterally with good air entry. Heart has regular rate and rhythm. S1 and S2 are normal. Abdomen is protuberant, soft nontender. Constitutional Vital Signs, click to edit/add: Last Vital Signs Temp 97.8 F 04/10/24 00:33 Pulse 66 04/10/24 04:30 Resp 17 04/10/24 04:30 BP 113/73 04/10/24 04:30 Pulse Ox 98 04/10/24 04:30 O2 Del Method Room Air 04/10/24 00:33 Course Vital Signs Vital signs: Vital Signs Temperature 97.8 F 04/10/24 00:33 Pulse Rate 69 04/10/24 00:33 Respiratory Rate 16 04/10/24 00:33 Blood Pressure 155/83 H 04/10/24 00:33 Pulse Oximetry 98 04/10/24 00:33 Oxygen Delivery Method Room Air 04/10/24 00:33 Temperature 97.8 F 04/10/24 00:33 Pulse Rate 66 04/10/24 04:30 Respiratory Rate 17 04/10/24 04:30 Blood Pressure 113/73 04/10/24 04:30 Pulse Oximetry 98 04/10/24 04:30 Oxygen Delivery Method Room Air 04/10/24 00:33 Medical Decision Making MDM Narrative Medical decision making narrative: Patient presents with a history of recent syncope but he has been doing this off-and-on and is currently being worked up for it. He also complains of typical migraine type headache. The EKG was nondiagnostic for any conduction defect or ischemia. He was treated with IV fluids, IV Toradol, Compazine and Zofran. This did improve the intensity of his headache. With the addition of 25 mcg of fentanyl IV the headache intensity came down to 5 and he felt well enough to go home. He is advised follow-up with his own physicians admit return anytime for worsening symptoms. Medical Records Medical records reviewed: Yes I reviewed the patient's medical records Lab Data Labs: Lab Results 04/10/24 04/10/24 Range/Units 00:45 01:35 WBC 8.8 (4.0-11.0) 10^3/uL RBC 4.42 L (4.70-6.10) 10^6/uL Hgb 13.8 L (14.0-18.0) g/dL Hct 40.4 L (42.0-54.0) % MCV 91.4 (80.0-94.0) fL MCH 31.2 (25.9-34.0) pg MCHC 34.2 (29.9-35.2) g/dL RDW 13.7 (11.0-15.0) % Plt Count 274 (150-450) 10^3/uL MPV 9.3 L (9.5-13.5) fL Neut % (Auto) 56.9 (43.0-75.0) % Lymph % (Auto) 34.8 (20.5-60.0) % [place] % (Auto) 6.3 (1.7-12.0) % Eos % (Auto) 1.1 (0.9-7.0) % Baso % (Auto) 0.3 (0.2-2.0) % Neut # (Auto) 5.0 (1.4-6.5) 10^3/uL Lymph # (Auto) 3.1 (1.2-3.8) 10^3/uL [place] # (Auto) 0.6 (0.3-0.8) 10^3/uL Eos # (Auto) 0.1 (0.0-0.7) 10^3/uL Baso # (Auto) 0.0 (0.0-0.1) 10^3/uL Abs Immat Gran (auto) 0.05 H (0.00-0.03) 10^3/uL Imm/Tot Granulo (auto) 0.6 H (0.0-0.5) % Sodium 139 (136-145) mmol/L Potassium 3.5 (3.5-5.1) mmol/L Chloride 105 (98-107) mmol/L Carbon Dioxide 24.4 (21.0-32.0) mmol/L Anion Gap 13.1 BUN 17.0 (7.0-18.0) mg/dL Creatinine 1.44 H (0.70-1.30) mg/dL Est GFR ( Amer) >60 (>=60 mL/min/1.73m^2) Est GFR (Non-Af Amer) 57 L (>=60 mL/min/1.73m^2) BUN/Creatinine Ratio 11.8 Glucose 114 H (74-106) mg/dL Calcium 9.2 (8.5-10.1) mg/dL Total Bilirubin 0.4 (0.2-1.0) mg/dL AST 7 L (15-37) U/L ALT 22 (16-63) U/L Alkaline Phosphatase 69 (46-116) U/L Troponin I High Sens 4.1 (4.0-76.1) pg/mL Total Protein 7.4 (6.4-8.2) g/dL Albumin 4.1 (3.4-5.0) g/dL Globulin 3.3 g/dL Albumin/Globulin Ratio 1.2 Urine Opiates Screen Positive A (NEGATIVE) Ur Buprenorphine Scrn Negative (NEGATIVE) Ur Oxycodone Screen Negative (NEGATIVE) Urine Methadone Screen Negative (NEGATIVE) Ur Barbiturates Screen Negative (NEGATIVE) U Tricyclic Antidepress Negative (NEGATIVE) Ur Phencyclidine Scrn Negative (NEGATIVE) Ur Amphetamines Screen Negative (NEGATIVE) U Methamphetamines Scrn Negative (NEGATIVE) U Benzodiazepines Scrn Negative (NEGATIVE) Urine Cocaine Screen Negative (NEGATIVE) U Cannabinoids Screen Positive A (NEGATIVE) Ethanol Quant <3 mg/dL ECG Data Attestation: I personally reviewed and interpreted this ECG as follows: Interpretation: Sinus rhythm with a rate of 71 bpm. Incomplete right bundle branch block pattern. No acute findings. Discharge Plan Discharge Chief Complaint: Chest Pain Clinical Impression: Migraine Qualifiers: Migraine type: unspecified Status migrainosus presence: without status migrainosus Intractability: not intractable Qualified Code(s): G43.909 - Migraine, unspecified, not intractable, without status migrainosus Syncope Qualifiers: Syncope type: unspecified Qualified Code(s): R55 - Syncope and collapse Patient Disposition: Home, Self-Care Time of Disposition Decision: 04:33 Condition: Good Mode of Transportation: Private Vehicle Prescriptions / Home Meds: No Action prednisone 10 mg tablet hydrocodone-acetaminophen 5-325 mg tablet ondansetron 4 mg tablet,disintegrating ferrous sulfate [FeroSul] 325 mg (65 mg iron) tablet 325 mg PO DAILY rizatriptan 10 mg tablet lamotrigine 25 mg tablet topiramate 50 mg tablet Print Language: Cuban Instructions: Migraine Headache (ED), Syncope (ED) Additional Instructions: Follow-up with your physician in the next 1 to 2 days. Return for worsening symptoms. Referrals: Jc Guzman MD [Primary Care Provider] - 1 week Discharge Date/Time: 04/10/24 04:47
[2024-04-10 01:01] LABS: Basophils Percent Auto 0.3 % (0.2-2.0); Eosinophils Absolute Auto 0.1 10^3/uL (0.0-0.7); Eosinophils Percent Auto 1.1 % (0.9-7.0); Hematocrit 40.4 % (42.0-54.0); Hemoglobin 13.8 g/dL (14.0-18.0); Immature Granulocytes Abs Auto 0.05 10^3/uL (0.00-0.03); Immature Granulocytes Pct Auto 0.6 % (0.0-0.5); Lymphocytes Absolute Auto 3.1 10^3/uL (1.2-3.8); Lymphocytes Percent Auto 34.8 % (20.5-60.0); Mean Corpuscular HGB Conc 34.2 g/dL (29.9-35.2); Mean Corpuscular Hemoglobin 31.2 pg (25.9-34.0); Mean Corpuscular Volume 91.4 fL (80.0-94.0); Mean Platelet Volume 9.3 fL (9.5-13.5); Monocytes Absolute Auto 0.6 10^3/uL (0.3-0.8); Monocytes Percent Auto 6.3 % (1.7-12.0); Neutrophils Percent Auto 56.9 % (43.0-75.0); Platelet Count 274 10^3/uL (150-450); Red Blood Count 4.42 10^6/uL (4.70-6.10); Red Cell Distribution Width 13.7 % (11.0-15.0); White Blood Count 8.8 10^3/uL (4.0-11.0)
[2024-04-10 01:36] LABS: Alanine Aminotransferase 22 U/L (16-63); Albumin Globulin Ratio 1.2; Albumin Level 4.1 g/dL (3.4-5.0); Alkaline Phosphatase 69 U/L (46-116); Anion Gap 13.1; Aspartate Amino Transferase 7 U/L (15-37); BUN Creatinine Ratio 11.8; Bilirubin Total 0.4 mg/dL (0.2-1.0); Calcium 9.2 mg/dL (8.5-10.1); Carbon Dioxide 24.4 mmol/L (21.0-32.0); Chloride 105 mmol/L (98-107); Estimated GFR (African America >60 (>=60 mL/min/1.73m^2); Estimated GFR (Non-African Ame 57 (>=60 mL/min/1.73m^2); Globulin 3.3 g/dL; Glucose 114 mg/dL (74-106); Potassium 3.5 mmol/L (3.5-5.1); Sodium 139 mmol/L (136-145); Total Protein 7.4 g/dL (6.4-8.2)
[2024-04-10 01:38] LABS: Troponin I High Sensitivity 4.1 pg/mL (4.0-76.1)
[2024-04-10] MEDS: 0.9 % SODIUM CHLORIDE 1,000 ML 1000 ML IV (01:39)
[2024-04-10] MEDS: KETOROLAC TROMETHAMINE 30 MG/ML VIAL 15 MG IVP (01:39)
[2024-04-10] MEDS: DIPHENHYDRAMINE HCL 50 MG/ML VIAL 25 MG IV (01:39)
[2024-04-10] MEDS: PROCHLORPERAZINE 10 MG/2 ML VIAL 5 MG IV (01:40)
[2024-04-10 01:46] LABS: Ethanol <3 mg/dL
[2024-04-10 02:05] LABS: Amphetamine Screen Urine NEGATIVE (NEGATIVE); Barbiturates Screen Urine NEGATIVE (NEGATIVE); Benzodiazepines Screen Urine NEGATIVE (NEGATIVE); Buprenorphine Screen Urine NEGATIVE (NEGATIVE); Cannabinoid Screen Urine POSITIVE (NEGATIVE); Cocaine Screen Urine NEGATIVE (NEGATIVE); Methadone Screen Urine NEGATIVE (NEGATIVE); Methamphetamines Screen Urine NEGATIVE (NEGATIVE); Opiate Screen Urine POSITIVE (NEGATIVE); Oxycodone Screen Urine NEGATIVE (NEGATIVE); Phencyclidine Screen Urine NEGATIVE (NEGATIVE); Tricyclic Antidepressant Urine NEGATIVE (NEGATIVE)
--- NOTE | 2024-04-10 03:27 | PC.NURSE ---
patient voice his migraine is at 710 now, this patient voices no concerns and shows no signs of distress
[2024-04-10] MEDS: FENTANYL CITRATE/PF 100 MCG/2 ML VIAL 25 MCG IV (04:12)
--- NOTE | 2024-04-10 04:45 | PC.NURSE ---
i gave this patient verbal and written discharge orders to this patient, this patient voices yes to understanding these. at time of discharge this patient voices no concerns and shows no signs of distress. i also told patient not to drive automobile since was given pain medication.
== END 2024-04-10 04:47 | disposition home or self-care (01) ==
PROVIDERS: Emergency Provider Emergency Medicine; PCP Family Medicine
DX: R55 Syncope and collapse (principal); G43.909 Migraine, unspecified, not intractable, without status migrainosus
CPT/HCPCS: 36415; 80053; 80307; 80320; 84484; 85025; 93005; 96361; 96374; 96375; 99284; J0780; J1200; J1885; J3010

== ENCOUNTER 2024-04-14 19:03 | Emergency (ER) | payer MEDICAID, SELFPAY ==
--- OUTSIDE RECORDS SUMMARY | 2024-04-14 19:10 | XMS_ITS | CCD ---
Author Organization [facility] Care Team Providers Care Street Commissioner Name Role Phone Latricia Garcia Primary Care Physician [phone] Shirley Murrell Attending Unavailable LueShirley MJoselin Referring Unavailable Lue Shirley MJoselin Admitting Unavailable Lue Shirley MJoselin Attending Unavailable Lue Shirley MJoselin Referring Unavailable Lue Shirley MJoselin Attending Unavailable LueShirley MJoselin Attending Unavailable RADHA ., DR ROME [...] Unavailable LUE ., SHIRLEY M Admitting Unavailable LULala .SHIRLEY Attending Unavailable RADHA [...] Unavailable Latricia Garcia MD Primary Care Provider [phone] MICHELLE, JON E Referring Unavailable HOY, LATRICIA M Primary Care Unavailable HOY, ALTRICIA M Primary Care Unavailable MICHELLE, JON E [...] Unavailable Latricia Garcia MD Primary Care Provider [phone] ARMANDO MEEK Attending Unavailable HOY, LATRICIA M Referring Unavailable HOY, LATRICIA M Primary Care Unavailable ARMANDO MEEK Referring Unavailable HOY, LATRICIA M Primary Care Unavailable BOUMEGOUAS, MANEL Attending Unavailable ARMANDO MEEK Referring Unavailable HOY, LATRICIA M Primary Care Unavailable BOUMEGOUAS, MANEL Attending Unavailable BOUMEGOUAS, MANEL Referring Unavailable HOY, LATRICIA M Primary Care Unavailable BOUMEGOUAS, MANEL Attending Unavailable BOUMEGOUAS, MANEL Referring Unavailable HOY, LATRICIA M Primary Care Unavailable HOY, LATRICIA M Primary Care Unavailable KENIA CHAVEZ Attending Unavailable CIERA TORRES Attending Unavailable ARMANDO MEEK Referring Unavailable HOY, LATRICIA M Primary Care Unavailable Allergies Allergy Classification Reported Allergen(s) Allergy Type Date of Onset Reaction(s) Facility (14 sources) Naproxen; Translations: [naproxen] Drug Allergy 3 Unknown (qualifier value), Nausea And Vomiting [facility] (1 source) Naproxen Drug Allergy [facility] Repository Medications Current Medications Medication Drug Class(es) Dates Sig (Normalized) Sig (Original) Acetaminophen (2 sources) Start: 02-27-2024 acetaminophen (TYLENOL) tablet 650 mg take 2 tablets by mo [facility] every six hours as needed for pain acetaminophen (TYLENOL EXTRA STRENGTH) 5 00 mg tablet Take 2 tablets (1,000 mg total) by mouth every 6 (six) hours as needed for pain. Active acetaminophen 325 mg / HYDROcodone bitartrate 5 mg oral tablet (6 sources) Opioid Agonist Start: 03-02-2024 End: 03-05-2024 take 1 tablet by mouth every six hours as needed for pain, then take 4 tablets by mouth once daily as needed for pain HYDROcodone-acetaminophen (NORCO) 5-325 mg per tablet TAKE 1 [...] Active Start: 05-12-2022 take 1 capsule by [facility] every twenty-four hours Keflex 500 mg Cap 500 mg = 1 cap(s), Oral, q24hr, Take 1 pill the day before the procedure and 1 pill after the procedure., # 2 cap(s), Refills(s) 0, Pharmacy: [id number] Start Date: 05/12/22 Status: Ordered 0.4 [...] since Mon02/29/2024 at 1050 until manually unheld ferrous sulfate 325 mg oral tablet (7 sources) Start: 03-02-2024 take 1 tablet by [...] disposal. ondansetron 4 mg disintegrating oral tablet (7 sources) Serotonin-3 Receptor Antagonist Start: 01-31-2024 ondansetron [...] by mouth nightly Active polyethylene glycol 3350 18296 mg powder for oral solution (2 sources) [...] 40 mEq predniSONE 10 mg oral tablet (4 sources) Start: 04-02-2024 End: 04-03-2024 predniSONE (DELTASONE) 10 mg tablet Indications: Status migrainosus Take 4 tabs (40 mg) daily for 2 days, then 3 tabs (30 mg) daily for 2 days, then 2 tabs (20 mg) daily for 2 days, then 1 tab daily for 1 day, then Discontinue 19 tablet 04/03/2024 Active rimegepant 75 mg disintegrating oral tablet (5 sources) Start: 03-26-2024 rimegepant (NURTEC ODT) 75 [...] Status: Ordered topiramate 50 mg oral tablet (5 sources) Start: 03-26-2024 topiramate (TOPAMAX) 50 mg [...] Hospital 02/29/2024 at 1438 until manually unheld methocarbamol [...] Onset: 07-14-2022 Episodic Calculus of urinary tract (18 sources) Ureteric stone; Translations: [Calculus of ureter] Onset: 07-06-2022 Episodic Deficiency and other anemia (7 sources) Pancytopenia; Translations: [Other pancytopenia] Onset: 02-28-2024 03-02-2024 Chronic Deficiency and other anemia (2 sources) Other pancytopenia; Translations: [Other pancytopenia] Onset: 02-28-2024 Chronic Diseases of white blood cells (1 source) Elevated white blood cell count, unspecified; Translations: [ELEVATED WHITE BLOOD CELL COUNT UNS] Onset: 07-14-2022 Chronic Epilepsy; convulsions (10 sources) Unspecified convulsions; Translations: [Seizure] Onset: 02-26-2024 02-26-2024 Episodic Fluid and electrolyte disorders (1 source) Dehydration; Translations: [DEHYDRATION] Onset: 07-14-2022 Episodic Headache; including migraine (6 sources) Migraine without aura, not refractory ; Translations: [Migraine without aura, not intractable, without status migrainosus] Onset: 03-26-2024 03-26-2024 Chronic Headache; including migraine (2 sources) Headache; including migraine; Translations: [Headache, unspecified] Onset: 02-26-2024 Miscellaneous mental health disorders (4 sources) Multiple personality disorder; 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 [...] 07-14-2022 Episodic Residual codes; unclassified (1 source) Altered mental status, unspecified; Translations: [Altered mental status, unspecified] Onset: 04-11-2024 Episodic Spondylosis; intervertebral disc disorders; other back problems (1 source) Other dorsalgia; Translations: [OTHER DORSALGIA] Onset: 07-22-2022 Episodic Substance-related disorders (2 sources) Nicotine dependence, cigarettes, uncomplicated; Translations: [Cannabis abuse, uncomplicated] Onset: 07-26-2022 Chronic Syncope (8 sources) Syncope symptom; Translations: [Syncope and collapse] Onset: 03-26-2024 03-26-2024 Episodic Unclassified (1 source) CONTACT W/AND (SUSP) EXPOS COVID-19; Translations: [CONTACT W/AND (SUSP) EXPOS COVID-19] Onset: 07-14-2022 Unclassified (1 source) New Patient Onset: 04-08-2024 Viral infection (2 sources) Herpes simplex 07-13-2022 Episodic Past or Other Problems Problem Classification Problem Date Documented Date Episodic/Chronic Joint disorders and dislocations; trauma-related (2 sources) Unspecified dislocation of right patella, initial encounter; Translations: [Unspecified dislocation of right patella, initial encounter] Onset: 06-09-2023 Episodic Mood disorders (5 sources) Mood disorders Onset: 03-26-2024 03-26-2024 Osteoarthritis (4 sources) Arthritis; Translations: [Unspecified osteoarthritis, unspecified site] Onset: 04-05-2024 Resolved: 04-05-2024 07-13-2022 Chronic Residual codes; unclassified (1 source) Other specified postprocedural states; Translations: [Other specified postprocedural states] Onset: 03-13-2023 Episodic Results Test Name Value Interpretation Reference Range Facility BASIC METABOLIC PANLon 04-11 Anion gap [Moles/Vol] 7 mmol/L Normal 5-15 [facility] Comment on above: Performed By: #### C BCA, BMP, 46727-2, 99931-6 #### [facility] ([id number]) [address] [place] [address] 91053 Calcium [Mass/Vol] 9.2 mg/dL Normal 8.5-10.5 [facility] Comment on above: Performed By: #### C BCA, BMP, , 74722-4 #### [facility] ([id number]) [address] [place] [address] 44941 Chloride [Moles/Vol] 107 mmol/L Normal 98-109 [facility] Comment on above: Performed By: #### C BCA, BMP, , 99357-9 #### [facility] ([id number]) [address] [place] [address] 23604 CO2 [Moles/Vol] 23 mmol/L Normal 22-32 [facility] Comment on above: Performed By: #### C BCA, BMP, , 33901-7 #### [facility] ([id number]) [address] [place] [address] 12596 Creatinine [Mass/Vol] 1.20 mg/dL Normal 0.70-1.20 [facility] Comment on above: Result Comment: METH OD TRACEABLE TO IDMS STANDARD Performed By: #### C BCA, BMP, , 00238-8 #### [facility] ([id number]) [address] [place] [address] 50373 GFR/1.73 sq M.predicted among non-blacks MDRD (S/P/Bld) [Vol rate/Area] 83 mL/min/{1.73_m2} Normal >59 [facility] Comment on above: Result Comment: Reported eGFR is based on the CKD-EPI 2020 equation that does not use a race coefficient. Performed By: #### C BCA, BMP, 53796-5, 72885-4 #### [facility] ([id number]) [address] [place] [address] 86809 Glucose [Mass/Vol] 95 mg/dL Normal 65-99 [facility] Comment on above: Performed By: #### C BRIAN, BMP, , 95869-6 #### [facility] ([id number]) [address] [place] [address] 74734 Potassium [Moles/Vol] 3.7 mmol/L Normal 3.5-5.0 [facility] Comment on above: Performed By: #### C BRIAN, BMP, , 18946-7 #### [facility] ([id number]) [address] [place] [address] 51668 Sodium [Moles/Vol] 137 mmol/L Normal 134-146 [facility] Comment on above: Performed By: #### C BRIAN, BMP, , 14034-7 #### [facility] ([id number]) [address] [place] [address] 48219 Urea nitrogen [Mass/Vol] 18 mg/dL Normal 5-23 [facility] Comment on above: Performed By: #### C BRIAN, BMP, , 66680-5 #### [facility] ([id number]) [address] [place] [address] 82108 CBC AND AUTO DIFFon 12-12-20 24 ABSOLUTE BASOPHIL 0.1 X10E9/L Normal 0.0-0.2 [facility] Comment on above: Performed By: #### C BRIAN, BMP, , 04129-4 #### [facility] ([id number]) [address] [place] [address] 07123 ABSOLUTE NEUTROPHIL 3.6 X10E9/L Normal 1.5-6.[address] [facility] Comment on above: Performed By: #### C BRIAN, BMP, , 53904-8 #### [facility] ([id number]) [address] [place] [address] 70774 Basophils/100 WBC (Bld) 0.8 % Normal [facility] Comment on above: Performed By: #### C WON TORRES, , 56677-7 #### [facility] ([id number]) [address] [place] [address] 99198 Eosinophils (Bld) [#/Vol] 0.2 10*3/uL Normal 0.0-0.4 [facility] Comment on above: Performed By: #### C BRIAN, WON, , 20103-2 #### [facility] ([id number]) [address] [place] [address] 66136 Eosinophils/100 WBC (Bld) 2.3 % Normal [facility] Comment on above: Performed By: #### Irene TORRES, WON, , 67379-4 #### [facility] ([id number]) [address] [place] [address] 75962 Erythrocyte distribution width (RBC) [Ratio] 14.5 % Normal 11.5-15.0 [facility] Comment on above: Performed By: #### Irene TORRES, WON, , 26641-6 #### [facility] ([id number]) [address] [place] [address] 69016 Hematocrit (Bld) [Volume fraction] 40.8 % Normal 39-49 [facility] Comment on above: Performed By: #### Irene TORRES, WON, , 65718-5 #### [facility] ([id number]) [address] [place] [address] 51381 Hemoglobin (Bld) [Mass/Vol] 14.0 g/dL Normal 13.0-17.0 [facility] Comment on above: Performed By: #### Irene TORRES, BMP, , 32630-9 #### [facility] ([id number]) [address] [place] [address] 83850 Lymphocytes (Bld) [#/Vol] 2.3 10*3/uL Normal 1.0-3.5 [facility] Comment on above: Performed By: #### Irene TORRES, BMP, , 63883-0 #### [facility] ([id number]) [address] [place] [address] 67097 Lymphocytes/100 WBC (Bld) 35.0 % Normal [facility] Comment on above: Performed By: #### Irene TORRES, BMP, , 02053-1 #### [facility] ([id number]) [address] [place] [address] 79895 MCH (RBC) [Entitic mass] 31.2 pg Normal 27-34 [facility] Comment on above: Performed By: #### Irene TORRES, BMP, , 35561-9 #### [facility] ([id number]) [address] [place] [address] 68342 MCHC (RBC) [Mass/Vol] 34.2 g/dL Normal 32-36 [facility] Comment on above: Performed By: #### Irene TORRES, BMP, , 24826-9 #### [facility] ([id number]) [address] [place] [address] 83266 MCV (RBC) [Entitic vol] 91 fL Normal 80-100 [facility] Comment on above: Performed By: #### Irene TORRES, BMP, , 59491-3 #### [facility] ([id number]) [address] [place] [address] 70498 Monocytes (Bld) [#/Vol] 0.5 10*3/uL Normal 0-0.9 [facility] Comment on above: Performed By: #### Irene BCA, BMP, , 34874-1 #### [facility] ([id number]) [address] [place] [address] 54340 Monocytes/100 WBC (Bld) 7.3 % Normal [facility] Comment on above: Performed By: #### C BRIAN, BMP, , 32590-2 #### [facility] ([id number]) [address] [place] [address] 87659 Neutrophils/100 WBC (Bld) 54.6 % Normal [facility] Comment on above: Performed By: #### C BRIAN, BMP, , 01916-2 #### [facility] ([id number]) [address] [place] [address] 39078 Platelet mean volume (Bld) [Entitic vol] 7.3 fL Normal 7-12 [facility] Comment on above: Performed By: #### Irene TORRES, BMP, , 79279-1 #### [facility] ([id number]) [address] [place] [address] 57526 Platelets (Bld) [#/Vol] 245 10*3/uL Normal 150-450 [facility] Comment on above: Performed By: #### Irene TORRES, BMP, , 55689-6 #### [facility] ([id number]) [address] [place] [address] 72189 RBC COUNT 4.48 X10E12/L Normal 4.10-5.70 [facility] Comment on above: Performed By: #### Irene TORRES, BMP, , 43924-1 #### [facility] ([id number]) [address] [place] [address] 10668 WBC (Bld) [#/Vol] 6.6 10*3/uL Normal 4.0-11.0 [facility] Comment on above: Performed By: #### C BCA, BMP, , 61827-5 #### [facility] ([id number]) [address] [place] [address] 72880 MAGNESIUMon 04-11-2024 Magnesium [Mass/Vol] 2.1 mg/dL Normal 1.8-2.6 [facility] Comment on above: Performed By: #### C WON TORRES, 11486-1, 88243-8 #### [facility] ([id number]) [address] [place] [address] 27041 Troponin I.cardiac High sens itivity method [Mass/Vol]on 04-11-2024 1 HOUR TROP I, HIGH SENSITIVITY 2 ng/L Normal <21 [facility] Comment on above: Performed By: #### 8 9579-7 #### [facility] ([id number]) [address] [place] [address] 17197 TROPONIN I, HIGH SENSITIVITY 3 ng/L Normal <21 [facility] Comment on above: Performed By: #### C WON TORRES, 09511-7, 44255-7 #### [facility] ([id number]) [address] [place] [address] 06589 DIAGNOSTIC QUAL BCR-ABL1 ASS AY W/ REFLEXon 03-12-2024 DIAGNOSTIC QUAL BCR-ABL1 ASSAY, RESULT Not detected Normal [facility] Comment on above: Result Comment: Ther e [...] reference gene is also amplified for specimen clinical quality manager and to ensure the integrity of [...] Transcripts Analytical Sensitivity Minor (e1a2) NCN = 0.80353 Major (e13a2) %IS = 0.0040 Major (e14a2) [...] developed and its performance characteristics determined by [facility]. It has not been cleared or approved by the U.S. Food and Drug Administration. This test was performed in a CLIA-certified laboratory and is intended for clinical purposes. Performed By: [facility] [address] [place] [address]65 Conveyor Feeder Offbearer: Sunny Roman MD, PhD CLIA Number: [id number] Performed By: #### D QBC2 #### [facility] [address] [facility] [address] DIAGNOSTIC QUAL BCR-ABL1 ASSAY, SOURCE Not Provided Normal [facility] Comment on above: Result Comment: AMEN DED on 03/12/24: Result in error was LAV Whole Blood, verified at 09:43 on 03/01/24. Performed By: #### D QBC2 #### [facility] [address] [facility] [address] CHROMOSOME ANAL. BONE MARROW on 03-11-2024 CHROMOSOME ANAL. BONE MARROW SEE BELOW Normal [facility] Comment on above: Result Comment: Hollow Core Door Frame Assembler mosome Analysis, Bone Marrow See Note Normal [...] and approved by Akash Smith, PhD, [facility] A portion of this analysis was performed at the following location(s): [facility] CG-NM#1 [facility] -[place]#1 [facility]-[place]#1 INTERPRETIVE INFORMATION: Chromosome Analysis, Bone Marrow This test was developed and its performance characteristics determined by [facility]. It has not been cleared or approved by the US Food and Drug Administration. This test was performed in a CLIA certified laboratory and is intended for clinical purposes. EER Chromosome Analysis Bone Marrow See Note Authorized individuals can access the [facility] Enhanced Report using the following link: [email or web address] Performed By: [facility] [address] [place] [address] Conveyor Feeder Offbearer: Sunny Roman MD, PhD CLIA Number: [id number] Performed By: #### M MMP, LPBM2, CRBM2 #### [facility] [address] [facility] [address] MYELOID MALIGANCIES MUTATION PANEL BY [employer] 03-08-2024 EER MYELOID MALIGNANCIES PANEL BY NGS See Note Normal [facility] Comment on above: Result Comment: Auth orized individuals can access the [facility] Enhanced Report using the following link: [email or web address] Performed By: [facility] [address] [place] [address] Conveyor Feeder Offbearer: Sunny Roman MD, PhD CLIA Number: [id number] Performed By: #### M MMP, LPBM2, CRBM2 #### [address] [place] [id number] MYELOID MALIGNANCIES PANEL INTERP See Note Normal [facility] Comment on above: Result Comment: Myeloid Malignancies Mutation Panel NGS Submitted diagnosis or diagnosis under consideration for variant interpretation: Pancytopenia TIER 1: Variants of Known Clinical Significance in Hematologic Malignancies None found TIER 2: Variants of Unknown Clinical Significance in Hematologic Malignancies 1. NSD1 c.7576C>T, p.Cfp0361Vgm ([id number]) VAF: 49.0% This variant has not been reported in hematologic malignancies, to the best of our knowledge. 2. KMT2A c.5573G>A, p.Xqg8480Wcm ([id number]) VAF: 47.8% This variant has not been reported in hematologic malignancies, to the best of our knowledge. This result has been reviewed and approved by Zulay Abdi M.D. Low coverage regions: Listed below are regions where the average sequencing depth (number of times a particular nucleotide is sequenced) in at least 20% of the [id number] is less than our stringent cutoff of [...] NOTCH1; NPM1*; NRAS; NSD1; PHF6; PIGA; PPM1D; JZSY37Q; PRPF8; PTPN11; RAD21; RUNX1; SAMD9; SAMD9L; SETBP1; [...] M MMP, LPBM2, CRBM2 #### [facility] [address] [facility] [place] [address] MYELOID MALIGNANCIES PANEL SPECIMEN Bone Marrow Normal [facility] Comment on above: Performed By: #### M MMP, LPBM2, CRBM2 #### [facility] [address] [facility] [address] [facility] [place] [address] MYELOID MALIGNANCY PROPOSED DIAGNOSIS Pancytopenia Normal [facility] Comment on above: Performed By: #### M MMP, LPBM2, CRBM2 #### [facility] [address] [facility] [address] LEUKEMIA/LYMPHOMA PHENO BLOO Don 03-05-2024 LEUKEMIA/LYMPHOMA PHENO BLOOD SEE BELOW Normal [facility] Comment on above: Result Comment: Leuk /Lymph [...] loss of CD16 without any other abnormality) Mesa:Lambda Ratio: approx. 2:1 CD4:CD8 Ratio: approx. 8:1 Viability: 58% Markers run: HLA-DR, Mesa, Lambda, CD2, CD3, CD4, CD5, CD7, CD8, CD10, CD11b, CD13, CD14, CD16, CD19, CD20, CD23, CD33, CD34, CD38, CD45, CD56, CD57, CD64, CD117, CD200 Num of Markers Run: 26 This result has been reviewed and approved by Kostas Miller M.D., Ph.D. 03/05/2024 INTERPRETIVE INFORMATION: Leuk/Lymph Phenotyping, Flow Cytometry This test was developed and its performance characteristics determined by [facility]. It has not been cleared or approved by the [place] Food and Drug Administration. This test was performed in a CLIA certified laboratory and is intended for clinical purposes. Performed By: [facility] [address] [place], [place] [id number] Conveyor Feeder Offbearer: Sunny Roman MD, PhD CLIA Number: [id number] Performed By: #### C , WSR #### [place] [address] LEUKEMIA/LYMPHOMA PHENO BONE MARROWon 03-03-2024 LEUKEMIA/LYMPHOMA PHENO BONE MARROW SEE BELOW Normal [facility] Comment on above: Result Comment: Leuk /Lymph [...] Viability: 82% Markers run: cKappa, cLambda, HLA-DR, Mesa, Lambda, CD2, CD3, CD4, CD5, CD7, CD8, CD10, CD11b, CD13, CD14, CD16, CD19, CD20, CD23, CD33, CD34, CD38, CD45, CD56, CD57, CD64, CD117, CD138, CD200 Num of Markers Run: 29 This result has been reviewed and approved by Kostas Miller M.D., Ph.D. 03/03/2024 INTERPRETIVE INFORMATION: Leuk/Lymph Phenotyping, Flow Cytometry This test was developed and its performance characteristics determined by [facility]. It has not been cleared or approved by the US Food and Drug Administration. This test was performed in a CLIA certified laboratory and is intended for clinical purposes. Performed By: [facility] [address] [place], [place] [id number] Conveyor Feeder Offbearer: Sunny Roman MD, PhD CLIA Number: [id number] Performed By: #### M MMP, LPBM2, CRBM2 #### [place] [id number] ANION GAPon 03-02-2024 Anion gap [Moles/Vol] 9.0 mmol/L Normal 8.0-16.0 [facility] Comment on above: Result Comment: ANIO N GAP = Sodium -(Chloride + CO2) Performed By: #### C CANDY, WSR #### [facility] [address] [place] [address] Anion Gapon 03-02-2024 Anion gap [Moles/Vol] 9.0 mmol/L 8.0 - 16.0 meq/L [facility] Comment on above: ANION GAP = Sodium - (Chloride + CO2) Performed at [facility] [address] [place] [address]22 BASIC METABOL PANELon 2023 Calcium [Mass/Vol] 8.4 mg/dL Low 8.5-10.5 [facility] Comment on above: Performed By: #### C CANDY, WSR #### [facility] [address] [place] [address] 08940 Chloride [Moles/Vol] 100 mmol/L Normal 98-111 [facility] Comment on above: Performed By: #### C CANDY, WSR #### [facility] [address] [place] [address] 53007 CO2 [Moles/Vol] 29 mmol/L Normal 23-33 [facility] Comment on above: Performed By: #### Irene GUPTA, WSR #### [facility] [address] [place] [address] 70578 Creatinine [Mass/Vol] 0.9 mg/dL Normal 0.4-1.2 [facility] Comment on above: Performed By: #### C CANDY, WSR #### [facility] [address] [place] [address] 21755 Glucose [Mass/Vol] 103 mg/dL Normal 70-108 [facility] Comment on above: Performed By: #### Irene GUPTA, WSR #### [facility] [address] [place] [address] 20220 Potassium [Moles/Vol] 3.7 mmol/L Normal 3.5-5.2 [facility] Comment on above: Performed By: #### Irene GUPTA, WSR #### [facility] [address] [place] [address] 61689 Sodium [Moles/Vol] 138 mmol/L Normal 135-145 [facility] Comment on above: Performed By: #### C CANDY WSR #### [facility] [address] [place] [address] Urea nitrogen [Mass/Vol] 10 mg/dL Normal 7-22 [facility] Comment on above: Performed By: #### C RP, WSR #### [facility] [address] [place] [address] Basic metabolic 2000 panelon 03-02-2024 Calcium [Mass/Vol] 8.4 mg/dL Low 8.5 - 10. 5 mg/dL [facility] Comment on above: Performed at [facility] [address] [place] [address] Chloride [Moles/Vol] 100 mmol/L 98 - 111 meq/L [facility] CO2 [Moles/Vol] 29 mmol/L 23 - 33 meq/L [facility] Creatinine [Mass/Vol] 0.9 mg/dL 0.4 - 1.2 mg/dL [facility] Glucose [Mass/Vol] 103 mg/dL 70 - 108 mg/dL [facility] Interpretation and review of laboratory results Abnormal [facility] Potassium [Moles/Vol] 3.7 mmol/L 3.5 - 5.2 meq/L [facility] Sodium [Moles/Vol] 138 mmol/L 135 - 145 meq/L [facility] Urea nitrogen [Mass/Vol] 10 mg/dL 7 - 22 mg/dL [facility] CBC WITH DIFFERENTIALon ATYPICAL LYMPH OCC. Normal [facility] Comment on above: Performed By: #### C DMITRY, SCAN1 #### [facility] [address] [place] [address] PLATELET ESTIMATE SL DECREASED Normal Adequate [facility] Comment on above: Performed By: #### C DMITRY, SCAN1 #### [facility] [address] [place] [address] SMUDGE CELLS Present Normal Absent [facility] Comment on above: Performed By: #### C DMITRY, SCAN1 #### [address] [address] ABS BASOPHILS 0.0 thou/mm3 Normal 0.0-0.1 [facility] Comment on above: Performed By: #### Irene ANDRES, SCAN1 #### [address] [address] ABS EOSINOPHILS 0.0 thou/mm3 Normal 0.0-0.4 [facility] Comment on above: Performed By: #### Irene ANDRES, SCAN1 #### [address] [address] ABS IMMATURE GRANS (IG) 0.08 thou/mm3 High 0.00-0.07 [facility] Comment on above: Performed By: #### Irene ANDRES, SCAN1 #### [address] [address] ABS LYMPHOCYTES 0.7 thou/mm3 Low 1.0-4.8 [facility] Comment on above: Performed By: #### Irene ANDRES, SCAN1 #### [address] [address] ABS MONOCYTES 0.1 thou/mm3 Low 0.4-1.3 [facility] Comment on above: Performed By: #### Irene ANDRES, SCAN1 #### [address] [address] ABS NEUTROPHILS 0.9 thou/mm3 Low 1.8-7.7 [facility] Comment on above: Performed By: #### Irene ANDRES, SCAN1 #### [address] [address] Basophils/100 WBC (Bld) 0.5 % Normal [facility] Comment on above: Performed By: #### Irene ANDRES, SCAN1 #### [address] [address] Eosinophils/100 WBC (Bld) 2.6 % Normal [facility] Comment on above: Performed By: #### Irene ANDRES, SCAN1 #### [address] [address] Erythrocyte distribution width (RBC) [Ratio] 12.1 % Normal 11.5-14.5 [facility] Comment on above: Performed By: #### C DMITRY, SCAN1 #### [facility] [address] [place] [address] Hematocrit (Bld) [Volume fraction] 33.8 % Low 42.0-52.0 [facility] Comment on above: Performed By: #### C DMITRY, SCAN1 #### [facility] [address] [place] [address] Hemoglobin (Bld) [Mass/Vol] 11.6 g/dL Low 14.0-18.0 [facility] Comment on above: Performed By: #### C DMITRY, SCAN1 #### [facility] [address] [place] [address] IMMATURE GRANS (IG) 4.2 % Normal [facility] Comment on above: Performed By: #### C DMITRY, SCAN1 #### [address] [address] Lymphocytes/100 WBC (Bld) 37.0 % Normal [facility] Comment on above: Performed By: #### C DMITRY, SCAN1 #### [address] [address] MCH (RBC) [Entitic mass] 30.9 pg Normal 26.0-33.0 [facility] Comment on above: Performed By: #### C DMITRY, SCAN1 #### [facility] [address] [place] [address] MCHC (RBC) [Mass/Vol] 34.3 g/dL Normal 32.2-35.5 [facility] Comment on above: Performed By: #### C DMITRY, SCAN1 #### [facility] [address] [place] [address] MCV (RBC) [Entitic vol] 90.1 fL Normal 80.0-94.0 [facility] Comment on above: Performed By: #### C DMITRY, SCAN1 #### [facility] [address] [place] [address] Monocytes/100 WBC (Bld) 7.8 % Normal [facility] Comment on above: Performed By: #### Irene ANDRES, SCAN1 #### [facility] [address] [place] [address] Neutrophils/100 WBC (Bld) 47.9 % Normal [facility] Comment on above: Performed By: #### Irene ANDRES, SCAN1 #### [facility] [address] [place] [address] NRBC 0 /100 wbc Normal [facility] Comment on above: Performed By: #### Irene ANDRES, SCAN1 #### [facility] [address] [place] [address] PLATELET 100 thou/mm3 Low 130-400 [facility] Comment on above: Performed By: #### Irene ANDRES, SCAN1 #### [facility] [address] [place] [address] Platelet mean volume (Bld) [Entitic vol] 11.4 fL Normal 9.4-12.4 [facility] Comment on above: Performed By: #### Irene ANDRES, SCAN1 #### [facility] [address] [place] [address] RBC 3.75 mill/mm3 Low 4.70-6.10 [facility] Comment on above: Performed By: #### Irene ANDRES, SCAN1 #### [address] [address] RDW-SD 40.8 fL Normal 35.0-45.0 [facility] Comment on above: Performed By: #### Irene ANDRES, SCAN1 #### [address] [address] WBC 1.9 thou/mm3 Low 4.8-10.8 [facility] Comment on above: Performed By: #### Irene ANDRES, SCAN1 #### [facility] [address] [place] [address] CBC with Auto Differentialon 03-02-2024 Basophils (Bld) [...] [facility] Comment on above: Performed at [facility] [address] [place] [address] Variant lymphocytes LM Ql (Bld) OCC. % [facility] WBC (Bld) [#/Vol] 1.9 10*3/uL Low [facility] EKG Rhythm Stripon PACEART [facility] FRANCES VARNER VIRUS ANTIBODIE Son 03-02-2024 FRANCES VARNER VIRUS ANTIBODIES SEE BELOW Normal [facility] Comment on above: Result Comment: EBV Ab [...] helpful. 11.0 U/mL or greater....Detected Performed By: [facility] [address] [place] [address] [employer] Offbearer: Sunny Roman MD, PhD CLIA Number: [id number] Performed By: #### M MMP, LPBM2, CRBM2 #### [facility] [address] [facility] [address] Frances varner virus (EBV) ant ibody panel Ion 03-02-2024 FRANCES-VARNER VIRUS ANTIBODIES SEE BELOW [facility] Comment on above: EBV Ab [...] helpful. 11.0 U/mL or greater....Detected Performed By: [facility] [address] [place] [address] [employer] Offbearer: Sunny Roman MD, PhD CLIA Number: [id number] [facility] GFR, ESTIMATEDon 03-02-2024 GFR/1.73 sq M.predicted MDRD (S/P/Bld) [Vol rate/Area] mL/min/{1.73_m2} Normal >60 [facility] Comment on above: Pediatric calculator link https://www.kidney.org/professionals/kdoqi/gfr_calculatorped [...] that affects renal tubular secretion. Performed [place] [address] Result Comment: Pedi atric calculator link https://www.kidney.org/professionals/kdoqi/gfr_calculatorped [...] Performed By: #### C RP, WSR #### [facility] [address] [place] [address] No Panel Informationon 03-02 [facility] SCAN OF BLOOD SMEARon 2023 SCAN OF BLOOD SMEAR see below Normal [facility] [employer] [facility] [employer] Comment on above: Criteria Exceeded; S can of Differential Slide Performed Performed at [facility] [address] [place] [address] Result Comment: Crit eria Exceeded; Scan of Differential Slide Performed Performed By: #### C BCWD, SCAN1 #### [address] [address] BLOOD SMEAR REVIEWon PATHOLOGIST REVIEWED Tammi FUNES. Normal [facility] Comment on above: Result Comment: Panc ytopenia with normocytic anemia. No circulating blasts. No platelet clumps. Clinical correlation is recommended. Performed By: #### M MMP, LPBM2, CRBM2 #### [facility] [address] [facility] [place] [address] SMEAR REVIEWED BY PATHOLOGIST see below Normal [facility] Comment on above: Result Comment: See Below Performed By: #### M MMP, LPBM2, CRBM2 #### [facility] [address] [facility] [place] [address] CBC WITH DIFFERENTIALon PATHOLOGIST REVIEWED PCF Normal [facility] Comment on above: Performed By: #### C VFLU #### [address] [address] ATYPICAL LYMPH OCC. Normal [facility] Comment on above: Performed By: #### C VFLU #### [address] [address] ABS BASOPHILS 0.0 thou/mm3 Normal 0.0-0.1 [facility] Comment on above: Performed By: #### C VFLU #### [address] [address] ABS EOSINOPHILS 0.0 thou/mm3 Normal 0.0-0.4 [facility] Comment on above: Performed By: #### C VFLU #### [address] [address] ABS IMMATURE GRANS (IG) 0.09 thou/mm3 High 0.00-0.07 [facility] Comment on above: Performed By: #### C VFLU #### [facility] [address] [place] [address] ABS LYMPHOCYTES 0.5 thou/mm3 Low 1.0-4.8 [facility] Comment on above: Performed By: #### C VFLU #### [address] [address] ABS MONOCYTES 0.1 thou/mm3 Low 0.4-1.3 [facility] Comment on above: Performed By: #### C VFLU #### [address] [address] ABS NEUTROPHILS 1.1 thou/mm3 Low 1.8-7.7 [facility] Comment on above: Performed By: #### C VFLU #### [address] [address] Basophils/100 WBC (Bld) 1.1 % Normal [facility] Comment on above: Performed By: #### C VFLU #### [facility] [address] [place] [address] Eosinophils/100 WBC (Bld) 1.7 % Normal [facility] Comment on above: Performed By: #### C VFLU #### [address] [address] Erythrocyte distribution width (RBC) [Ratio] 12.3 % Normal 11.5-14.5 [facility] Comment on above: Performed By: #### C VFLU #### [address] [address] Hematocrit (Bld) [Volume fraction] 38.2 % Low 42.0-52.0 [facility] Comment on above: Performed By: #### C VFLU #### [address] [address] Hemoglobin (Bld) [Mass/Vol] 12.9 g/dL Low 14.0-18.0 [facility] Comment on above: Performed By: #### C VFLU #### [address] [address] IMMATURE GRANS (IG) 5.0 % Normal [facility] Comment on above: Performed By: #### C VFLU #### [facility] [address] [place] [address] Lymphocytes/100 WBC (Bld) 26.3 % Normal [facility] Comment on above: Performed By: #### C VFLU #### [address] [address] MCH (RBC) [Entitic mass] 30.2 pg Normal 26.0-33.0 [facility] Comment on above: Performed By: #### C VFLU #### [address] [address] MCHC (RBC) [Mass/Vol] 33.8 g/dL Normal 32.2-35.5 [facility] Comment on above: Performed By: #### C VFLU #### [address] [address] MCV (RBC) [Entitic vol] 89.5 fL Normal 80.0-94.0 [facility] Comment on above: Performed By: #### C VFLU #### [address] [address] Monocytes/100 WBC (Bld) 5.6 % Normal [facility] Comment on above: Performed By: #### C VFLU #### [address] [address] Neutrophils/100 WBC (Bld) 60.3 % Normal [facility] Comment on above: Performed By: #### C VFLU #### [address] [address] NRBC 0 /100 wbc Normal [facility] Comment on above: Performed By: #### C VFLU #### [address] [address] PLATELET 86 thou/mm3 Low 130-400 [facility] Comment on above: Performed By: #### C VFLU #### [address] [address] Platelet mean volume (Bld) [Entitic vol] 11.2 fL Normal 9.4-12.4 [facility] Comment on above: Performed By: #### C VFLU #### [address] [address] RBC 4.27 mill/mm3 Low 4.70-6.10 [facility] Comment on above: Performed By: #### C VFLU #### [address] [address] RDW-SD 40.0 fL Normal 35.0-45.0 [facility] Comment on above: Performed By: #### C VFLU #### [facility] [address] [place] [address] WBC 1.8 thou/mm3 Low 4.8-10.8 [facility] Comment on above: Performed By: #### C VFLU #### [facility] [address] [place] [address] CBC with Auto Differentialon 03-01-2024 Basophils (Bld) [...] WBC (Bld) [Ratio] 0 % /100 wbc [facility] Comment on above: [place] [address] Pathologist Review PCF [facility] Platelet mean volume (Bld) [Entitic vol] 11.2 fL 9.4 - 12.4 fL [facility] Platelets (Bld) [#/Vol] 86 10*3/uL Low [facility] RBC (Bld) [#/Vol] 4.27 10*6/uL Low [facility] Variant lymphocytes LM Ql (Bld) OCC. % [facility] WBC (Bld) [#/Vol] 1.8 10*3/uL Low [facility] CT BIOPSY BONE MARROWon 11-0 CT BIOPSY [...] ox monitoring devices by a registered nurse. Mdiv-hj-okkx time with patient 10 minutes. PROCEDURE: Signed [...] utilizing coaxial technique and handed to the laboratory technician for processing and evaluation. Post [...] Kostas Mendoza MD 03/01/24 Final result Normal [facility] CT Guidance for biopsy of Cosmo ne marrowon 03-01-2024 Status post successf ul CT guided bone marrow biopsy. This report has been created using voice recognition software. It may contain minor errors which are inherent in voice recognition technology. Electronically signed by Dr Kostas Mendoza [facility] CT-GUIDED BONE MARRO W BIOPSY: CLINICAL [...] ox monitoring devices by a registered nurse. Voia-hk-dngb time with patient 10 minutes. PROCEDURE: Signed [...] utilizing coaxial technique and handed to the laboratory technician for processing and evaluation. Post procedure CT images revealed no significant post biopsy hemorrhage... At the end of the procedure, hemostasis was obtained with manual pressure The patient tolerated the procedure well. ALL CT SCANS AT THIS FACILITY use dose modulation, iterative reconstruction, and/or weight-based dosing when appropriate to reduce radiation dose to as low as reasonably achievable. [facility] Kostas Mendoza MD - 03/01/2024 CT-GUIDED BONE MARROW BIOPSY: [...] ox monitoring devices by a registered nurse. Rvfu-pe-darw time with patient 10 minutes. PROCEDURE: Signed [...] utilizing coaxial technique and handed to the laboratory technician for processing and evaluation. Post [...] signed by Dr Kostas Mendoza [facility] Radiology Study observation (narrative) [facility] CT Guidance for biopsy of Cosmo ne marrowOrdered By: Kostas Mendoza on 03-01-2024 [facility] [employer] Work Phone: EKG 12 LeadOrdered By: Julito Morris on 03-01-2024 Atrial Rate 87 BPM [employer] Work Phone: P [facility] 73 degrees [employer] Phone: P-R Interval 140 ms [employer] Work Phone: Q-T Interval 378 ms [employer] Work Phone: QRS Duration 104 ms [employer] Phone: QTc Calculation (Bazett) 454 ms [facility] Work Phone: R [place] [facility] 72 degrees [facility] Work Phone: T [facility] 42 degrees [facility] Work Phone: Ventricular Rate 87 BPM [facility] Work Phone: [facility] Work Phone: EKG 12 Leadon 03-01-2024 Normal [...] NAYELI MORRIS ([id number]) on 03/01/2024 1:00:05 PM [facility] EKG Rhythm Stripon 4 75 PACEART [facility] 81 PACEART [facility] hr 86 PACEART [facility] No Panel Informationon 03-01 [facility] Path Review, Smearon 024 REVIEWED BY Tammi FUNES. [facility] Comment on above: Pancytopenia with no rmocytic anemia. No circulating blasts. No platelet clumps. Clinical correlation is recommended. Performed at [facility] [address] [place] [address] Smear Review see below [facility] Comment on above: See Below SCAN OF BLOOD SMEARon 2023 SCAN OF BLOOD SMEAR see below Normal [facility] Comment on above: Criteria Exceeded; S can of Differential Slide Performed Performed at [facility] [place] [address] Result Comment: Crit chaya Exceeded; Scan of Differential Slide Performed Performed By: #### C VFLU #### [facility] [address] [place] [address] SURGICALon 03-01-2024 SURGICAL [place] [facility] JAYMEETHAN Salas [id number] Assoc. Page 1 of 1 [address] [place] [address] PROC: 03/01/2024 [facility] RECV: 03/01/[address] RPTD: 03/20/2024 [place] [address] LOC: 4A ACCT: [id number] SEX: M : 1990 AGE: 33 Y [...] - The specimen container is labeled Ethan Scherf, bone marrow clot. The specimen is received in formalin and consists of an aggregate of red blood clot measuring 2.8 x 2.0 x 0.7 cm in aggregate. [employer] blood clot is submitted in one cassette labeled A1. B - The specimen container is labeled [facility], bone marrow core. The specimen is received [...] currently pending. Please see separate reference reports. [id number] x 2 LIZY BRISCOE M.D., F.C.A.P. [facility]/ [facility] Printed on: 03/20/[address] [place] [address] Original print date: 03/20/2024 Normal [facility] Scan of Blood Smearon 2023 [facility] ANION GAPon 02-29-2024 Anion gap [Moles/Vol] 13.0 mmol/L Normal 8.0-16.0 [facility] Comment on above: Result Comment: ANIO N GAP = Sodium -(Chloride + CO2) Performed By: #### C VFLU #### [facility] [address] [place] [address] Anion Gapon 02-29-2024 Anion gap [Moles/Vol] 13.0 mmol/L 8.0 - 16.0 meq/L [facility] Comment on above: ANION GAP = Sodium - (Chloride + CO2) Performed at [facility] [address] [place] [address] BASIC METABOL PANELon 2023 Calcium [Mass/Vol] 8.3 mg/dL Low 8.5-10.5 [facility] Comment on above: Performed By: #### C VFLU #### [address] [address] Chloride [Moles/Vol] 102 mmol/L Normal 98-111 [facility] Comment on above: Performed By: #### C VFLU #### [facility] [address] [place] [address] CO2 [Moles/Vol] 24 mmol/L Normal 23-33 [facility] Comment on above: Performed By: #### C VFLU #### [address] [address] Creatinine [Mass/Vol] 1.1 mg/dL Normal 0.4-1.2 [facility] Comment on above: Performed By: #### C VFLU #### [facility] [address] [place] [address] Glucose [Mass/Vol] 96 mg/dL Normal 70-108 [facility] Comment on above: Performed By: #### C VFLU #### [facility] [address] [place] [address] Potassium [Moles/Vol] 3.7 mmol/L Normal 3.5-5.2 [facility] Comment on above: Performed By: #### C VFLU #### [facility] [address] [place] [address] Sodium [Moles/Vol] 139 mmol/L Normal 135-145 [facility] Comment on above: Performed By: #### C VFLU #### [facility] [address] [place] [address] Urea nitrogen [Mass/Vol] 13 mg/dL Normal 7-22 [facility] Comment on above: Performed By: #### C VFLU #### [facility] [address] [place] [address] Basic metabolic 2000 panelon 02-29-2024 Calcium [Mass/Vol] 8.3 mg/dL Low 8.5 - 10. 5 mg/dL [facility] Comment on above: Performed at [facility] [address] [place] [address] Chloride [Moles/Vol] 102 mmol/L 98 - 111 meq/L [facility] CO2 [Moles/Vol] 24 mmol/L 23 - 33 meq/L [facility] Creatinine [Mass/Vol] 1.1 mg/dL 0.4 - 1.2 mg/dL [facility] Glucose [Mass/Vol] 96 mg/dL 70 - 108 mg/dL [facility] Interpretation and review of laboratory results Abnormal [facility] Potassium [Moles/Vol] 3.7 mmol/L 3.5 - 5.2 meq/L [facility] Sodium [Moles/Vol] 139 mmol/L 135 - 145 meq/L [facility] Urea nitrogen [Mass/Vol] 13 mg/dL 7 - 22 mg/dL [facility] C-REACTIVE PROTEINon 024 C-REACTIVE PROTEIN 4.49 mg/dl High 0.00-1.00 [facility] Comment on above: Performed By: #### C RP, WSR #### [facility] [address] [place] [address] C-Reactive Proteinon 024 CRP [Mass/Vol] 4.49 mg/dl High 0.00 - 1.00 mg/dl [facility] Comment on above: Performed at [facility] [address] [place] [address] CALCIUM (IONIZED) * WBon CALCIUM (IONIZED) * WB 1.11 mmol/L Low 1.12-1.32 [facility] Comment on above: Performed By: #### C VFLU #### [facility] [address] [place] [address] CBC WITH DIFFERENTIALon 10-3 PLATELET ESTIMATE DECREASED Normal Adequate [facility] Comment on above: Performed By: #### C VFLU #### [address] [address] SMUDGE CELLS Present Normal Absent [facility] Comment on above: Performed By: #### C VFLU #### [facility] [address] [place] [address] ABS BASOPHILS 0.0 thou/mm3 Normal 0.0-0.1 [facility] Comment on above: Performed By: #### C VFLU #### [address] [address] ABS EOSINOPHILS 0.0 thou/mm3 Normal 0.0-0.4 [facility] Comment on above: Performed By: #### C VFLU #### [address] [address] ABS IMMATURE GRANS (IG) 0.05 thou/mm3 Normal 0.00-0.07 [facility] Comment on above: Performed By: #### C VFLU #### [address] [address] ABS LYMPHOCYTES 0.4 thou/mm3 Low 1.0-4.8 [facility] Comment on above: Performed By: #### C VFLU #### [address] [address] ABS MONOCYTES 0.1 thou/mm3 Low 0.4-1.3 [facility] Comment on above: Performed By: #### C VFLU #### [facility] [address] [place] [address] ABS NEUTROPHILS 0.9 thou/mm3 Low 1.8-7.7 [facility] Comment on above: Performed By: #### C VFLU #### [address] [address] Basophils/100 WBC (Bld) 1.4 % Normal [facility] Comment on above: Performed By: #### C VFLU #### [address] [address] Eosinophils/100 WBC (Bld) 0.7 % Normal [facility] Comment on above: Performed By: #### C VFLU #### [address] [address] Erythrocyte distribution width (RBC) [Ratio] 12.0 % Normal 11.5-14.5 [facility] Comment on above: Performed By: #### C VFLU #### [address] [address] Hematocrit (Bld) [Volume fraction] 36.0 % Low 42.0-52.0 [facility] Comment on above: Performed By: #### C VFLU #### [address] [address] [address] Hemoglobin (Bld) [Mass/Vol] 12.2 g/dL Low 14.0-18.0 [facility] Comment on above: Performed By: #### C VFLU #### [address] [address] IMMATURE GRANS (IG) 3.4 % Normal [facility] Comment on above: Performed By: #### C VFLU #### [address] [address] Lymphocytes/100 WBC (Bld) 25.0 % Normal [facility] Comment on above: Performed By: #### C VFLU #### [address] [address] MCH (RBC) [Entitic mass] 30.7 pg Normal 26.0-33.0 [facility] Comment on above: Performed By: #### C VFLU #### [address] [address] MCHC (RBC) [Mass/Vol] 33.9 g/dL Normal 32.2-35.5 [facility] Comment on above: Performed By: #### C VFLU #### [address] [address] MCV (RBC) [Entitic vol] 90.5 fL Normal 80.0-94.0 [facility] Comment on above: Performed By: #### C VFLU #### [address] [address] Monocytes/100 WBC (Bld) 7.4 % Normal [facility] Comment on above: Performed By: #### C VFLU #### [address] [address] Neutrophils/100 WBC (Bld) 62.1 % Normal [facility] Comment on above: Performed By: #### C VFLU #### [address] [address] NRBC 0 /100 wbc Normal [facility] Comment on above: Performed By: #### C VFLU #### [address] [address] PLATELET 89 thou/mm3 Low 130-400 [facility] Comment on above: Performed By: #### C VFLU #### [address] [address] Platelet mean volume (Bld) [Entitic vol] 10.7 fL Normal 9.4-12.4 [facility] Comment on above: Performed By: #### C VFLU #### [address] [address] RBC 3.98 mill/mm3 Low 4.70-6.10 [facility] Comment on above: Performed By: #### C VFLU #### [address] [address] RDW-SD 40.1 fL Normal 35.0-45.0 [facility] Comment on above: Performed By: #### C VFLU #### [address] [address] WBC 1.5 thou/mm3 Low 4.8-10.8 [facility] Comment on above: Performed By: #### C VFLU #### [address] [address] CBC with Auto Differentialon 02-29-2024 Basophils (Bld) [#/Vol] 0.0 10*3/uL [facility] Basophils/100 WBC (Bld) 1.4 % [facility] Eosinophils Absolute 0.0 [facility] Eosinophils/100 WBC (Bld) 0.7 % [facility] Erythrocyte distribution width (RBC) [Entitic vol] 40.1 fL 35.0 - 45.0 fL [facility] Erythrocyte distribution width (RBC) [Ratio] 12.0 % 11.5 - 14.5 % [facility] Hematocrit (Bld) [Volume fraction] 36.0 % Low 42.0 - 52.0 % [facility] Hemoglobin (Bld) [Mass/Vol] 12.2 g/dL Low [facility] Immature granulocytes (Bld) [#/Vol] 0.05 10*3/uL [facility] Immature granulocytes/100 WBC (Bld) 3.4 % [facility] Interpretation and review of laboratory results Abnormal [facility] Lymphocytes Absolute 0.4 Low [facility] Lymphocytes/100 WBC (Bld) 25.0 % [facility] MCH (RBC) [Entitic mass] 30.7 pg 26.0 - 33.0 pg [facility] MCHC (RBC) [Mass/Vol] 33.9 g/dL [facility] MCV (RBC) [Entitic vol] 90.5 fL 80.0 - 94.0 fL [facility] Monocytes Absolute 0.1 Low Bon [facility] Monocytes/100 WBC (Bld) 7.4 % [facility] Neutrophils Absolute 0.9 Low [facility] Neutrophils/100 WBC (Bld) 62.1 % [facility] Nucleated RBC/100 WBC (Bld) [Ratio] 0 % /100 wbc [facility] Platelet mean volume (Bld) [Entitic vol] 10.7 fL 9.4 - 12.4 fL [facility] Platelets (Bld) [#/Vol] 89 10*3/uL Low [facility] Platelets LM Ql (Bld) DECREASED Adequate [facility] RBC (Bld) [#/Vol] 3.98 10*6/uL Low [facility] cells LM Ql (Bld) Present Absent [facility] Comment on above: Performed at [facility] Medical Lab [address] [place] [address] WBC (Bld) [#/Vol] 1.5 10*3/uL Low Bon Se [facility] CRP [Mass/Vol]on 02-29-2024 Interpretation and review of laboratory results Abnormal [facility] Calcium, Ionizedon Calcium.ionized ISE (Bld) [Moles/Vol] 1.11 mmol/L Low 1.12 - 1.32 mmol/L [facility] Comment on above: Performed at [facility] [address] [place] [address] EKG 12-LEADon 02-29-2024 EKG 12-LEAD 87 87 140 104 378 [phone] Normal sinus rhythm Nonspecific T wave abnormality Abnormal ECG When compared with ECG of 28-FEB-2024 20:02, No significant change was found Confirmed by NAYELI MORRIS ([id number]) on 03/01/2024 1:00:05 PM [email or web address] RetrieveTestByDateTime ?[email or web address]=[id number]&D ate=29-02-2024&Time=20 %3a57%3a59%3a00&TestTy pe=ECG&Site=3&OutputTy pe=PDF&Ext=PDF Normal [facility] ESR Westergren method (Bld) [Velocity]on 02-29-2024 ESR (Bld) [Velocity] 10 mm/h [facility] Comment on above: Performed at [facility] Medical Lab [address] Electrophoresis Protein, Ser umon 02-29-2024 Protein Electrophoresis, Serum SEE BELOW [facility] Comment on above: Total Protein, [...] See Note Authorized individuals can access the [employer] Enhanced Report using the following link: [email or web address] Performed By: [facility] [address] [place] [address] [employer] Offbearer: Sunny Roman MD, PhD CLIA Number: [id number] [facility] FERRITINon 02-29-2024 Ferritin [Mass/Vol] 1435 ng/mL High 22-322 [facility] Comment on above: Performed By: #### C RP, WSR #### [employer] [address] [place] [address] Ferritinon 02-29-2024 Ferritin IA [Mass/Vol] 1435 ng/mL High 22 - 322 ng/mL [facility] Comment on above: Performed at [facility] [address] GFR, ESTIMATEDon 02-29-2024 GFR/1.73 sq M.predicted MDRD (S/P/Bld) [Vol rate/Area] mL/min/{1.73_m2} Normal >60 [facility] Comment on above: Pediatric calculator [...] that affects renal tubular secretion. Performed [place] [address] Result Comment: Danyel atric calculator link [email or web address].kidney.org/professionals/kdoqi/gfr_[email or web address] [...] secretion. Performed By: #### C VFLU #### [address] [address] HEPATIC FUNCTION PANELon Albumin [Mass/Vol] 3.3 g/dL Low 3.5-5.1 [facility] Comment on above: Performed By: #### C RP, WSR #### [address] [address] ALP [Catalytic activity/Vol] 89 U/L Normal 38-126 [facility] Comment on above: Performed By: #### C RP, WSR #### [address] [address] ALT [Catalytic activity/Vol] 49 U/L Normal 11-66 [facility] Comment on above: Performed By: #### C RP, WSR #### [employer] [address] [address] AST [Catalytic activity/Vol] 61 U/L High 5-40 [facility] Comment on above: Performed By: #### C RP, WSR #### [employer] [address] [address] Bilirubin [Mass/Vol] 0.7 mg/dL Normal 0.3-1.2 [facility] Comment on above: Performed By: #### C RP, WSR #### [employer] [facility] [employer] [address] [place] [address] Bilirubin.direct [Mass/Vol] 0.3 mg/dL Normal 0.1-13.8 [facility] Comment on above: Performed By: #### C RP, WSR #### [facility] [employer] [address] [place] [address] Protein [Mass/Vol] 5.8 g/dL Low 6.1-8.0 [facility] Comment on above: Performed By: #### C RP, WSR #### [facility] [employer] [facility] [address] [place] [address] HIV 1+2 Ab+HIV1 p24 Ag IA Ql on 02-29-2024 [facility] HIV AG/ABon 02-29-2024 HIV AG/AB SEE BELOW Normal [facility] Comment on above: Result Comment: HIV Ag/Ab NONREACTIVE NR No laboratory evidence of HIV infection. If acute HIV infection is suspected, consider testing for HIV-1 RNA. Performed at [facility], [address] [place] [address] . Performed By: #### C RP, WSR #### [facility] [employer] [facility] [address] [place] [address] HIV Screenon 02-29-2024 HIV 1+2 Ab+HIV1 p24 Ag IA Ql SEE BELOW [facility] Comment on above: HIV Ag/Ab NONREACTIV E NR No laboratory evidence of HIV infection. If acute HIV infection is suspected, consider testing for HIV-1 RNA. Performed at [facility] [employer], [address] [place] [address] . Hepatic function 2000 panelo n 02-29-2024 Albumin BCG dye [Mass/Vol] 3.3 g/dL Low 3.5 - 5.1 g/dL [facility] ALP [Catalytic activity/Vol] 89 U/L 38 - 126 U/L [facility] ALT No additional P-5'-P [Catalytic activity/Vol] 49 U/L 11 - 66 U/L [facility] AST [Catalytic activity/Vol] 61 U/L High 5 - 40 U/L [facility] Bilirubin [Mass/Vol] 0.7 mg/dL 0.3 - 1.2 mg/dL [facility] Bilirubin.conjugate d [Mass/Vol] 0.3 mg/dL 0.1 - 13.8 mg/dL [facility] Protein [Mass/Vol] 5.8 g/dL Low 6.1 - 8.0 g/dL [facility] Comment on above: Performed at [facility] [address] [place] [address] IRONon 02-29-2024 Iron [Mass/Vol] 31 ug/dL Low 65-195 [facility] Comment on above: Performed By: #### C RP, WSR #### [facility] [address] [place] [address] IRON BINDING CAPACITYon 01-31 IRON BINDING CAPACITY 199 ug/dL Normal 171-450 [facility] Comment on above: Performed By: #### C RP, WSR #### [facility] [address] [place] [address] IRON SATURATIONon 02-29-2024 Iron saturation [Mass fraction] 16 % Low 20 - 50 % [facility] Comment on above: Performed at [facility] [address] [place] [address] IRON SATURATION 16 % Low 20-50 [facility] Comment on above: Performed By: #### C RP, WSR #### [employer] [facility] [address] [place] [address] Ironon 02-29-2024 Iron [Mass/Vol] 31 ug/dL Low 65 - 195 ug/dL [facility] Comment on above: Performed at [facility] [address] [place] [address] Iron binding capacityon 01-31 Iron binding capacity [Mass/Vol] 199 ug/dL 171 - 450 ug/dL [facility] Comment on above: Performed at [facility] [address] [place] [address] MR Brain WO and W contrast I [...] Jadon Bhatti MD on 02/29/2024 02:17 AM [facility] MR Brain WO and W contrast I VOrdered By: Jadon Bhatti on 02-29-2024 [facility] [employer] Work Phone: MRI BRAIN W WO CONTRASTon [...] Jadon Bhatti MD 02/29/24 Final result Normal [facility] No Panel Informationon 02-28 Interpretation and review of laboratory results Abnormal [facility] Interpretation and review of laboratory results Abnormal [facility] PROTEIN ELECTRO., SERUMon PROTEIN ELECTRO., SERUM SEE BELOW Normal [facility] Comment on above: Result Comment: Tota l [...] See Note Authorized individuals can access the [facility] Enhanced Report using the following link: [email or web address] Performed By: [facility] [employer] [address] [place] [address] [employer] Offbearer: Sunny Roman MD, PhD CLIA Number: [id number] Performed By: #### C RP, WSR #### [place] [address] SCAN OF BLOOD SMEARon 2023 SCAN OF BLOOD SMEAR see below Normal [facility] Comment on above: Criteria Exceeded; S can of Differential Slide [place] [address] Result Comment: Crit eria Exceeded; Scan of Differential Slide Performed Performed By: #### C RP, WSR #### [address] [address] SED RATEon 02-29-2024 SED RATE 10 mm/hr Normal 0-10 [facility] Comment on above: Performed By: #### C RP, WSR #### [address] [address] ANION GAPon 02-28-2024 Anion gap [Moles/Vol] 14.0 mmol/L Normal 8.0-16.0 [facility] Comment on above: Result Comment: ANIO N GAP = Sodium -(Chloride + CO2) Performed By: #### M MIC, LPBM2, CRBM2 #### [facility] [address] [facility] [address] APTTon 02-28-2024 aPTT Coag (Bld) [Time] 24.6 s Normal 22.0-38.0 [facility] Comment on above: Result Comment: Ther apeutic Heparin Reference Range= 60-95 seconds (corresponds to 0.3 to 0.7 u/mL Anti-Xa factor activity) Performed By: #### M MIC, LPBM2, CRBM2 #### [facility] [address] [facility] [address] Anion Gapon 02-28-2024 Anion gap [Moles/Vol] 14.0 mmol/L 8.0 - 16.0 meq/L [facility] Comment on above: ANION GAP = Sodium - (Chloride + CO2) Performed at [facility] [address] [place] [address] CBC WITH DIFFERENTIALon 10-3 0-2024 ABS BASOPHILS 0.0 thou/mm3 Normal 0.0-0.1 [facility] Comment on above: Performed By: #### M MMP, LPBM2, CRBM2 #### [facility] [address] [place] [address] ABS EOSINOPHILS 0.0 thou/mm3 Normal 0.0-0.4 [facility] Comment on above: Performed By: #### M MMP, LPBM2, CRBM2 #### [facility] [address] [place] [address] ABS IMMATURE GRANS (IG) 0.03 thou/mm3 Normal 0.00-0.07 [facility] Comment on above: Performed By: #### M MMP, LPBM2, CRBM2 #### [facility] [address] [place] [address] ABS LYMPHOCYTES 0.4 thou/mm3 Low 1.0-4.8 [facility] Comment on above: Performed By: #### M MMP, LPBM2, CRBM2 #### [facility] [address] [place] [address] ABS MONOCYTES 0.2 thou/mm3 Low 0.4-1.3 [facility] Comment on above: Performed By: #### M MMP, LPBM2, CRBM2 #### [facility] [address] [place] [address] ABS NEUTROPHILS 1.6 thou/mm3 Low 1.8-7.7 [facility] Comment on above: Performed By: #### M MMP, LPBM2, CRBM2 #### [facility] [address] [place] [address] Basophils/100 WBC (Bld) 1.7 % Normal [facility] Comment on above: Performed By: #### M MMP, LPBM2, CRBM2 #### [facility] [address] [place] [address] Eosinophils/100 WBC (Bld) 0.9 % Normal [facility] Comment on above: Performed By: #### M MMP, LPBM2, CRBM2 #### [facility] [address] [facility] [address] Erythrocyte distribution width (RBC) [Ratio] 12.2 % Normal 11.5-14.5 [facility] Comment on above: Performed By: #### M MMP, LPBM2, CRBM2 #### [facility] [address] [facility] [address] Hematocrit (Bld) [Volume fraction] 39.2 % Low 42.0-52.0 [facility] Comment on above: Performed By: #### M MMP, LPBM2, CRBM2 #### [facility] [address] [facility] [address] Hemoglobin (Bld) [Mass/Vol] 13.1 g/dL Low 14.0-18.0 [facility] Comment on above: Performed By: #### M MMP, LPBM2, CRBM2 #### [facility] [address] [facility] [address] IMMATURE GRANS (IG) 1.3 % Normal [facility] Comment on above: Performed By: #### M MMP, LPBM2, CRBM2 #### [facility] [address] [facility] [address] Lymphocytes/100 WBC (Bld) 17.7 % Normal [facility] Comment on above: Performed By: #### M MMP, LPBM2, CRBM2 #### [facility] [address] [facility] [address] MCH (RBC) [Entitic mass] 30.2 pg Normal 26.0-33.0 [facility] Comment on above: Performed By: #### M MMP, LPBM2, CRBM2 #### [facility] [address] [facility] [address] MCHC (RBC) [Mass/Vol] 33.4 g/dL Normal 32.2-35.5 [facility] Comment on above: Performed By: #### M MMP, LPBM2, CRBM2 #### [facility] [address] [facility] [address] MCV (RBC) [Entitic vol] 90.3 fL Normal 80.0-94.0 [facility] Comment on above: Performed By: #### M MMP, LPBM2, CRBM2 #### [facility] [address] [facility] [address] Monocytes/100 WBC (Bld) 8.2 % Normal [facility] Comment on above: Performed By: #### M MMP, LPBM2, CRBM2 #### [facility] [address] [facility] [address] Neutrophils/100 WBC (Bld) 70.2 % Normal [facility] Comment on above: Performed By: #### M MMP, LPBM2, CRBM2 #### [facility] [address] [facility] [address] NRBC 0 /100 wbc Normal [facility] Comment on above: Performed By: #### M MMP, LPBM2, CRBM2 #### [facility] [address] [facility] [address] PLATELET 107 thou/mm3 Low 130-400 [facility] Comment on above: Performed By: #### M MMP, LPBM2, CRBM2 #### [facility] [address] [facility] [address] Platelet mean volume (Bld) [Entitic vol] 10.7 fL Normal 9.4-12.4 [facility] Comment on above: Performed By: #### M MMP, LPBM2, CRBM2 #### [facility] [address] [facility] [address] RBC 4.34 mill/mm3 Low 4.70-6.10 [facility] Comment on above: Performed By: #### M MMP, LPBM2, CRBM2 #### [facility] [address] [facility] [address] RDW-SD 40.4 fL Normal 35.0-45.0 [facility] Comment on above: Performed By: #### M MMP, LPBM2, CRBM2 #### [facility] [address] [facility] [address] WBC 2.3 thou/mm3 Low 4.8-10.8 [facility] Comment on above: Performed By: #### M MMP, LPBM2, CRBM2 #### [facility] [address] [facility] [address] CBC with Auto Differentialon 02-28-2024 Basophils (Bld) [#/Vol] 0.0 10*3/uL [facility] Eosinophils Absolute 0.0 [facility] Erythrocyte distribution width (RBC) [Entitic vol] 40.4 fL 35.0 - 45.0 fL [facility] Immature granulocytes (Bld) [#/Vol] 0.03 10*3/uL [facility] Immature granulocytes/100 WBC (Bld) 1.3 % [facility] Interpretation and review of laboratory results Abnormal [facility] Lymphocytes Absolute 0.4 Low [facility] Monocytes Absolute 0.2 Low [facility] Neutrophils Absolute 1.6 Low [facility] Nucleated RBC/100 WBC (Bld) [Ratio] 0 % /100 wbc [facility] Comment on above: Performed at [facility] [address] [place] [address] Platelets (Bld) [#/Vol] 107 10*3/uL Low [facility] RBC (Bld) [#/Vol] 4.34 10*6/uL Low [facility] WBC (Bld) [#/Vol] 2.3 10*3/uL Low [facility] COMP. METABOLIC PANELon 01-31 Albumin [Mass/Vol] 3.6 g/dL Normal 3.5-5.1 [facility] Comment on above: Performed By: #### M MMP, LPBM2, CRBM2 #### [facility] [address] [facility] [place] [address] ALP [Catalytic activity/Vol] 85 U/L Normal 38-126 [facility] Comment on above: Performed By: #### M MMP, LPBM2, CRBM2 #### [facility] [address] [facility] [place] [address] ALT [Catalytic activity/Vol] 39 U/L Normal 11-66 [facility] Comment on above: Performed By: #### M MMP, LPBM2, CRBM2 #### [facility] [address] [facility] [place] [address] AST [Catalytic activity/Vol] 45 U/L High 5-40 [facility] Comment on above: Performed By: #### M MMP, LPBM2, CRBM2 #### [facility] [address] [facility] [place] [address] Bilirubin [Mass/Vol] 0.8 mg/dL Normal 0.3-1.2 [facility] Comment on above: Performed By: #### M MMP, LPBM2, CRBM2 #### [facility] [address] [place] [address] Calcium [Mass/Vol] 8.5 mg/dL Normal 8.5-10.5 [facility] Comment on above: Performed By: #### M MMP, LPBM2, CRBM2 #### [facility] [address] [place] [address] Chloride [Moles/Vol] 101 mmol/L Normal 98-111 [facility] Comment on above: Performed By: #### M MMP, LPBM2, CRBM2 #### [facility] [address] [place] [address] CO2 [Moles/Vol] 25 mmol/L Normal 23-33 [facility] Comment on above: Performed By: #### M MMP, LPBM2, CRBM2 #### [facility] [address] [place] [address] Creatinine [Mass/Vol] 1.2 mg/dL Normal 0.4-1.2 [facility] Comment on above: Performed By: #### M MMP, LPBM2, CRBM2 #### [facility] [address] [place] [address] Glucose [Mass/Vol] 94 mg/dL Normal 70-108 [facility] Comment on above: Performed By: #### M MMP, LPBM2, CRBM2 #### [facility] [address] [place] [address] POTASSIUM WITH REFLEX MG 4.1 meq/L Normal 3.5-5.2 [facility] Comment on above: Performed By: #### M MMP, LPBM2, CRBM2 #### [facility] [address] [place] [address] Protein [Mass/Vol] 6.2 g/dL Normal 6.1-8.0 [facility] Comment on above: Performed By: #### M MMP, LPBM2, CRBM2 #### [facility] [address] [place] [address] Sodium [Moles/Vol] 140 mmol/L Normal 135-145 [facility] Comment on above: Performed By: #### M MMP, LPBM2, CRBM2 #### [facility] [address] [facility] [place] [address] Urea nitrogen [Mass/Vol] 15 mg/dL Normal 7-22 [facility] Comment on above: Performed By: #### M MMP, LPBM2, CRBM2 #### [facility] [address] [facility] [address] Comprehensive metabolic 2000 panelon 02-28-2024 Albumin BCG dye [Mass/Vol] 3.6 g/dL 3.5 - 5.1 g/dL [facility] ALP [Catalytic activity/Vol] 85 U/L 38 - 126 U/L [facility] ALT No additional P-5'-P [Catalytic activity/Vol] 39 U/L 11 - 66 U/L [facility] Comment on above: Performed at [facility] [address] [place] [address] AST [Catalytic activity/Vol] 45 U/L High 5 - 40 U/L [facility] Bilirubin [Mass/Vol] 0.8 mg/dL 0.3 - 1.2 mg/dL [facility] Calcium [Mass/Vol] 8.5 mg/dL 8.5 - 10. 5 mg/dL [facility] Chloride [Moles/Vol] 101 mmol/L 98 - 111 meq/L [facility] CO2 [Moles/Vol] 25 mmol/L 23 - 33 meq/L [facility] Creatinine [Mass/Vol] 1.2 mg/dL 0.4 - 1.2 mg/dL [facility] Glucose [Mass/Vol] 94 mg/dL 70 - 108 mg/dL [facility] Interpretation and review of laboratory results Abnormal [facility] Potassium [Moles/Vol] 4.1 mmol/L 3.5 - 5.2 meq/L [facility] Protein [Mass/Vol] 6.2 g/dL 6.1 - 8.0 g/dL [facility] Sodium [Moles/Vol] 140 mmol/L 135 - 145 meq/L [facility] Urea nitrogen [Mass/Vol] 15 mg/dL 7 - 22 mg/dL [facility] EKG 12 Leadon 02-28-2024 Atrial Rate 91 BPM [facility] P [facility] 69 degrees [facility] P-R Interval 142 ms [facility] Q-T Interval 360 ms [facility] QRS Duration 100 ms [facility] QTc Calculation (Bazett) 442 ms [facility] R [facility] 70 degrees [facility] T [facility] 25 degrees [facility] Ventricular Rate 91 BPM [facility] Normal sinus rhythm Incomplete right bundle branch block Nonspecific T wave abnormality Abnormal ECG When compared with ECG of 28-FEB-2024 16:05, No significant change was found Confirmed by Arben Mercado ([id number]) on 02/28/2024 8:19:15 PM [facility] MUSE Unknown, Provider, M D - 02/28/2024 Normal sinus rhythm Incomplete right bundle branch block Nonspecific T wave abnormality Abnormal ECG When compared with ECG of 28-FEB-2024 16:05, No significant change was found Confirmed by Arben Mercado ([id number]) on 02/28/2024 8:19:15 PM [facility] Normal sinus rhythm Incomplete right bundle branch block Nonspecific ST and T wave abnormality Abnormal ECG No previous ECGs available Clinical correlation is indicated Confirmed by Arben Mercado ([id number]) on 02/28/2024 7:52:29 PM [facility] STR MUSE Unknown, Provider, M D - 02/28/2024 Normal sinus rhythm Incomplete right bundle branch block Nonspecific ST and T wave abnormality Abnormal ECG No previous ECGs available Clinical correlation is indicated Confirmed by Arben Mercado ([id number]) on 02/28/2024 7:52:29 PM [facility] EKG 12 LeadOrdered By: Provi kenya Unknown on 02-28-2024 Atrial Rate 78 BPM [facility] Work Phone: P [facility] 56 degrees [facility] Work Phone: P-R Interval 154 ms [facility] Work Phone: Q-T Interval 386 ms [facility] Work Phone: QRS Duration 102 ms [facility] Work Phone: QTc Calculation (Bazett) 440 ms Roberto [facility] Work Phone: R [facility] 63 degrees Roberto Platogo Work Phone: T [facility] 19 degrees Roberto Platogo Work Phone: Ventricular Rate 78 BPM Roberto jeffrey [employer] Work Phone: Roberto Platogo Work Phone: EKG 12-LEADon 02-28-2024 EKG 12-LEAD 91 91 142 100 [phone] Normal sinus rhythm Incomplete right bundle branch block Nonspecific T wave abnormality Abnormal ECG When compared with ECG of 28-FEB-2024 16:05, No significant change was found Confirmed by Arben Mercado ([id number]) on 02/28/2024 8:19:15 PM [email or web address] RetrieveTestByDateTime ?BferxetTS=[id number]&D ate=28-02-2024&Time=20 %3a02%3a02%3a00&TestTy pe=ECG&Site=3&OutputTy pe=PDF&Ext=PDF Normal [facility] EKG 12-LEAD 78 78 154 102 [phone] Normal sinus rhythm Incomplete right bundle branch block Nonspecific ST and T wave abnormality Abnormal ECG No previous ECGs available Clinical correlation is indicated Confirmed by Arben Mercado ([id number]) on 02/28/2024 7:52:29 PM [email or web address] RetrieveTestByDateTime ?KucclcaMQ=[id number]&D ate=28-02-2024&Time=16 %3a05%3a49%3a00&TestTy pe=ECG&Site=3&OutputTy pe=PDF&Ext=PDF Normal [facility] EKG Rhythm Stripon PACEART [facility] GFR, ESTIMATEDon 02-28-2024 GFR/1.73 sq M.predicted MDRD (S/P/Bld) [Vol rate/Area] 83 mL/min/{1.73_m2} Normal >60 [facility] Comment on above: Pediatric calculator [...] that affects renal tubular secretion. Performed at [facility] [address] [place] [address] Result Comment: Pedi atric calculator link [email or web address].[email or web address].org/professionals/kdoqi/gfr_[email or web address] [...] M MMP, LPBM2, CRBM2 #### [facility] [address] [facility] [address] INR Coag (PPP) [Relative kurt e]on 02-28-2024 [facility] Influenza virus A and B RNA and SARS-CoV-2 (COVID-19) N gene panel MARIKA+probe (Resp)on 02-28-2024 FLUAV RNA MARIKA+probe Ql (Resp) Not detected NOT DETECTED [facility] FLUBV RNA MARIKA+probe Ql (Resp) Not detected NOT DETECTED [facility] Comment on above: Performed at [employer] [address] [place] [address] SARS-CoV-2 (COVID-19) RNA MARIKA+probe Ql (Resp) Not detected NOT DETECTED [facility] Comment on above: Not Detected [...] B in nasopharyngeal and nasal swab specimens. [facility] LDon 02-28-2024 LD 532 U/L High 100-190 [facility] Comment on above: Performed By: #### M MMP, LPBM2, CRBM2 #### [facility] [address] [facility] [address] Lactate Dehydrogenaseon 01-31 LDH Lactate to pyruvate reaction [Catalytic activity/Vol] 532 U/L High 100 - 190 U/L [facility] Comment on above: Performed at [facility] [address] [place] [address] MAGNESIUMon 02-28-2024 Magnesium [Mass/Vol] 2.3 mg/dL Normal 1.6-2.4 [facility] Comment on above: Performed By: #### C VFLU #### [facility] [address] [place] [address] MR Brain WO and W contrast I Von 02-28-2024 Radiology Study observation (narrative) [facility] Magnesiumon 02-28-2024 Magnesium [Mass/Vol] 2.3 mg/dL 1.6 - 2.4 mg/dL [facility] Comment on above: Performed at [facility] [address] [place] [address] Magnesium [Mass/Vol]on 02-27 [facility] No Panel Informationon 02-27 Interpretation and review of laboratory results Abnormal [facility] PROTHOMBIN TIMEon 02-28-2024 INR Coag (Bld) [Relative time] 1.13 {INR} Normal 0.85-1.13 [facility] Comment on above: Result Comment: ---- -----INDICATION INR Reference Range DVT, PE, AF, AMI, tissue heart valve 2.0 to 3.0 Mechanical prosthetic valves 2.5 to 3.5 Performed By: #### M MMP, LPBM2, CRBM2 #### [facility] [address] [facility] [address] Protime-INRon 02-28-2024 INR Coag (PPP) [Relative time] 1.13 {INR} 0.85 - 1.13 [facility] Comment on above: ---------INDICATION- INR Reference Range DVT, PE, AF, AMI, tissue heart valve 2.0 to 3.0 Mechanical prosthetic valves 2.5 to 3.5 Performed at [facility] [address] [place] [address] RETICULOCYTE PANELon 024 ABS RETIC COUNT 47.0 thou/mm3 Normal 20.0-115.0 [facility] Comment on above: Performed By: #### M MMP, LPBM2, CRBM2 #### [facility] [address] [facility] [address] IMM RETIC FRACTION 18.5 % High 2.3-13.4 [facility] Comment on above: Performed By: #### M MMP, LPBM2, CRBM2 #### [facility] [address] [facility] [address] RETIC HEMOGLOBIN 29.0 pg Normal 28.2-35.7 [facility] Comment on above: Performed By: #### M MMP, LPBM2, CRBM2 #### [facility] [address] [facility] [address] RETICULOCYTES 1.1 % Normal 0.5-2.0 [facility] Comment on above: Performed By: #### M MMP, LPBM2, CRBM2 #### [facility] [address] [facility] [address] Reticulocyteson 02-28-2024 Hemoglobin Auto (Reticulocytes) [Entitic mass] 29.0 pg 28.2 - 35.7 pg [facility] Comment on above: Performed at [facility] [address] [place] [address] Immature reticulocytes/Total reticulocytes (Bld) 18.5 % High 2.3 - 13.4 % [facility] Interpretation and review of laboratory results Abnormal [facility] Reticulocytes (Bld) [#/Vol] 47.0 10*3/uL [facility] Reticulocytes/100 RBC (Bld) 1.1 % 0.5 - 2.0 % [facility] SARS-COV-2 & INFLUENZA A/[facility] 02-28-2024 INFLUENZA A, RT-PCR Not detected Normal NOT DETECTED [facility] Comment on above: Performed By: #### C VFLU #### [address] [address] INFLUENZA B, RT-PCR Not detected Normal NOT DETECTED [facility] Comment on above: Performed By: #### C VFLU #### [address] [address] SARS-CoV-2 (COVID-19) RNA MARIKA+probe Ql (Unsp spec) Not detected Normal NOT DETECTED [facility] Comment on above: Result Comment: Not Detected [...] specimens. Performed By: #### C VFLU #### [address] [address] URIC ACIDon 02-28-2024 Urate [Mass/Vol] 7.6 mg/dL High 3.7-7.0 [facility] Comment on above: Performed By: #### M MMP, LPBM2, CRBM2 #### [facility] [address] [facility] [address] Uric Acidon 02-28-2024 Urate [Mass/Vol] 7.6 mg/dL High 3.7 - 7.0 mg/dL [facility] Comment on above: Performed at [facility] [address] [place] [address] VITAMIN B12 FOLATEon 024 Cobalamin (Vitamin B12) [Mass/Vol] 734 pg/mL Normal 211-911 [facility] Comment on above: Performed By: #### C DMITRY, SCAN1 #### [facility] [address] [place] [address] FOLATE 4.1 ng/mL Low 4.8-24.2 [facility] Comment on above: Performed By: #### C DMITRY, SCAN1 #### [address] [address] Vitamin B12 & Folateon 02-27 Cobalamin (Vitamin B12) [Mass/Vol] 734 pg/mL 211 - 911 pg/mL [facility] Folate [Mass/Vol] 4.1 ng/mL Low 4.8 - 24.2 ng/mL [facility] Comment on above: Performed at [facility] [address] [place] [address] Interpretation and review of laboratory results Abnormal [facility] aPTT Coag (Bld) [Time]on aPTT Coag (PPP) [Time] 24.6 s [facility] Comment on above: Therapeutic Heparin Reference Range= 60-95 seconds (corresponds to 0.3 to 0.7 u/mL Anti-Xa factor activity) Performed at [address] 25-hydroxyvitamin D3 [Mass/V ol]on 02-27-2024 [facility] BLOOD SMEAR REVIEWon 024 PATHOLOGIST REVIEWED Etsefani FUNES [facility] Comment on above: Result Comment: No s chistocytes seen Performed By: #### C ADRIAN GUPTAR #### [address] [address] SMEAR REVIEWED BY PATHOLOGIST see below Normal [facility] Comment on above: Result Comment: See Below Performed By: #### C CANDY, WSR #### [address] [address] C-REACTIVE PROTEINon 024 C-REACTIVE PROTEIN 6.83 mg/dl High 0.00-1.00 [facility] Comment on above: Performed By: #### C CANDY, WSR #### [facility] [address] [place] [address] C-Reactive Proteinon 024 CRP [Mass/Vol] 6.83 mg/dl High 0.00 - 1.00 mg/dl [facility] Comment on above: Performed at [facility] [address] [place] [address] CALCIUM (IONIZED) * WBon CALCIUM (IONIZED) * WB 1.11 mmol/L Low 1.12-1.32 [facility] Comment on above: Performed By: #### C DMITRY, SCAN1 #### [facility] [address] [place] [address] CREATININE (URINE)on Creatinine (U) [Mass/Vol] 37.4 mg/dL Normal [facility] Comment on above: Performed By: #### C CANDY, WSR #### [facility] [address] [place] [address] CRP [Mass/Vol]on 02-27-2024 Interpretation and review of laboratory results Abnormal [facility] Calcium, Ionizedon 4 Calcium.ionized ISE (Bld) [Moles/Vol] 1.11 mmol/L Low 1.12 - 1.32 mmol/L [facility] Comment on above: Performed at [facility] [address] [place] [address] Calcium.ionized ISE (Bld) [M oles/Vol]on 02-27-2024 Interpretation and review of laboratory results Abnormal [facility] [employer] [facility] Creatinine, Random Urineon Creatinine (U) [Mass/Vol] 37.4 mg/dL [facility] Comment on above: Performed at [facility] [address] [place] [address] DRUG ABUSE SCREENon 02-27-20 24 AMPHETAMINE/METHAMP H Negative Normal NEGATIVE [facility] Comment on above: Performed By: #### C RP, WSR #### [facility] [address] [place] [address] BARBITURATE Negative Normal NEGATIVE [facility] Comment on above: Performed By: #### C RP, WSR #### [facility] [address] [place] [address] Benzodiazepines Ql (U) Negative Normal NEGATIVE [facility] Comment on above: Performed By: #### C RP, WSR #### [facility] [address] [place] [address] Cannabinoids Screen Ql (U) Positive Normal NEGATIVE [facility] Comment on above: Performed By: #### C RP, WSR #### [facility] [address] [place] [address] COCAINE METABOLITE Negative Normal NEGATIVE [facility] Comment on above: Performed By: #### C RP, WSR #### [facility] [address] [place] [address] FENTANYL Negative Normal NEGATIVE [facility] Comment on above: Result Comment: A N [...] By: #### C RP, WSR #### [facility] [address] [place] [address] Opiates Ql (U) Negative Normal NEGATIVE [facility] Comment on above: Performed By: #### C RP, WSR #### [facility] [address] [place] [address] OXYCODONE Negative Normal NEGATIVE [facility] Comment on above: Performed By: #### C RP, WSR #### [facility] [address] [place] [address] Phencyclidine Ql (U) Negative Normal NEGATIVE [facility] Comment on above: Performed By: #### C , WSR #### [facility] [address] [place] [address] EEG 24 houron 02-27-2024 Rm Davis MD 02/27/2024 11:51 AM LONG-TERM EEG-VIDEO MONITORING CLINICAL NEUROPHYSIOLOGY LABORATORY DEPARTMENT OF NEUROLOGY [facility] Patient: Ethan Donald Age: 33 [...] times per day Jenny Gunter APRN - PILE DRIVING SETTER 10 mL at 02/27/24 0815 sodium chloride flush 0.9 % injection 10 mL 10 mL IntraVENous PRN Jenny Gunter APRN - PILE DRIVING SETTER 0.9 % sodium chloride infusion IntraVENous PRN Jenny Gunter APRN - SANJU potassium chloride (KLOR-CON M) extended release tablet 40 mEq 40 mEq Oral PRN Jenny Gunter APRN - SANJU Or potassium bicarb-citric acid (EFFER-K) effervescent tablet 40 mEq 40 mEq Oral PRN Jenny Gunter APRN - SANJU magnesium sulfate 2000 mg in 50 mL IVPB premix 2,000 mg IntraVENous PRN Jenny Gunter PHYSICAL SCIENCES PROFESSOR - SANJU enoxaparin (LOVENOX) injection 40 mg 40 mg SubCUTAneous Daily Jenny Gunter APRN - PILE DRIVING SETTER 40 mg at 02/27/24 0814 ondansetron (ZOFRAN-ODT) disintegrating tablet 4 mg 4 mg Oral Q8H PRN Jenny Gunter APRN - SANJU Or ondansetron (ZOFRAN) injection 4 mg 4 mg IntraVENous Q6H PRN Jenny Gunter PHYSICAL SCIENCES PROFESSOR - PILE [employer]IVING SETTER 4 mg at 02/27/24 0815 polyethylene glycol (GLYCOLAX) packet 17 g 17 g Oral Daily PRN Jenny Gunter, PHYSICAL SCIENCES PROFESSOR - PILE [employer]IVING SETTER acetaminophen (TYLENOL) tablet 650 mg 650 mg Oral Q6H PRN Jenny Gunter PHYSICAL SCIENCES PROFESSOR - PILE DRIVING SETTER 650 mg at 02/27/24 0128 Or acetaminophen (TYLENOL) suppository 650 mg 650 mg Rectal Q6H PRN Jenny Gunter, PHYSICAL SCIENCES PROFESSOR - PILE [employer]IVING SETTER LORazepam (ATIVAN) injection 4 mg 4 mg IntraVENous Q5 Min PRN Jenny Gunter PHYSICAL SCIENCES PROFESSOR - PILE DRIVING SETTER nicotine (NICODERM CQ) 14 MG/24HR 1 patch 1 patch TransDERmal Daily Jenny Gunter, PHYSICAL SCIENCES PROFESSOR - SANJU valproate (DEPACON) 1,500 mg in [...] revealed no abnormalities. RM DAVIS MD Diplomate, [place] [employer] and Neurology Diplomate, [place] Board of Clinical Neurophysiology Diplomate, [place] [employer] Epilepsy Please note this is a preliminary report and updated daily. The final report will have a summary of behavior and electrographic findings with clinical correlation. [facility] MUSE EEG 24 hourOrdered By: Rm Davis on 02-27-2024 [facility] [employer] Work Phone: EKG Rhythm Stripon 4 PACEART [facility] P[facility]ART [facility] HR 78 P[facility] ESR Westergren method (Bld) [Velocity]on 02-27-2024 ESR (Bld) [Velocity] 9 mm/h [facility] Comment on above: Performed at [facility] [address] [place] [id number] [place] [address] FIBRINOGENon 02-27-2024 FIBRINOGEN 402 mg/100ml Normal 155-475 [facility] Comment on above: Performed By: #### C BCWD, SCAN1 #### [facility] [address] [place] [address] Fibrinogenon 02-27-2024 Fibrinogen Coag (PPP) [Mass/Vol] 402 mg/dL [facility] Comment on above: Performed at [facility] [address] [place] [address] Fibrinogen Coag (PPP) [Mass/ Vol]on 02-27-2024 [facility] No Panel Informationon 02-26 [facility] OSMOLALITY URINEon 4 OSMOLALITY URINE see below Normal 250-750 [facility] Comment on above: Result Comment: Test was sent to an outside laboratory. Please refer to 'Reference' test. Performed By: #### C RP, WSR #### [facility] [address] [place] [address] Osmolality (U) [Osmolality]o n 02-27-2024 [facility] Osmolality, urineon 02-27-20 24 Osmolality (U) [Osmolality] see below [facility] Comment on above: Test was sent to an outside laboratory. Please refer to 'Reference' test. Performed at [facility] [address] [place] [address] PHOSPHORUSon 02-27-2024 Phosphate [Mass/Vol] 4.0 mg/dL Normal 2.4-4.7 [facility] Comment on above: Performed By: #### C BCWD, SCAN1 #### [address] [address] POTASSIUM (URINE)on 02-27-20 24 POTASSIUM (URINE) 9.5 meq/l Normal [facility] Comment on above: Performed By: #### C RP, WSR #### [address] [address] Path Review, Smearon 024 REVIEWED BY Estefani FUNES [facility] Comment on above: No schistocytes seen Performed at [facility] [place] [address] Smear Review see below [facility] Comment on above: See Below [facility] Phosphate [Mass/Vol]on 02-26 [facility] Phosphoruson 02-27-2024 Phosphate [Mass/Vol] 4.0 mg/dL 2.4 - 4.7 mg/dL [facility] Comment on above: Performed at [facility] [address] [place] [address] Potassium, urine, randomon 1 Potassium (U) [Moles/Vol] 9.5 mmol/L [facility] Comment on above: Performed at [facility] [address] [place] [address] REFERENCE SPECIMENon REFERENCE RANGE 50-1400 mOsm Normal [facility] TEST RESULT (WITH UNITS) 182 mOsm Normal [facility] ORIGINAL SAMPLE NUMBER [id number] Normal [facility] REFERENCE LOCATION see below Normal [facility] Comment on above: Result Comment: Perf ormed at [facility] [address] [place] [address] TEST(S) BEING PERFORMED URINE OSMO Normal [facility] Reference lab sampleon 02-26 ORIGINAL SAMPLE NUMBER [id number] [facility] REFERENCE LOCATION see below [facility] Comment on above: Performed at [facility] [address] [place] [address] Reference Range 50-1400 mOsm [facility] TEST RESULTS WITH UNITS 182 mOsm [facility] TEST(S) BEING PERFORMED URINE [facility] SED RATEon 02-27-2024 SED RATE 9 mm/hr Normal 0-10 [facility] Comment on above: Performed By: #### C RP, WSR #### [facility] [address] [place] [address] SODIUM (URINE)on 02-27-2024 Sodium (U) [Moles/Vol] mmol/L Normal [facility] Comment on above: Performed By: #### C CANDY, WSR #### [facility] [address] [place] [address] Sodium, urine, randomon 01-30 Sodium (U) [Moles/Vol] mmol/L meq/l [facility] Comment on above: Performed at [facility] [address] [place] [address] URINALYSIS W/ MICROon 2023 BACTERIA NONE SEEN Normal FEW/NONE SEEN [facility] Comment on above: Performed By: #### U AWM2 #### [facility] [address] [place] [address] CASTS NONE SEEN Normal NONE SEEN [facility] Comment on above: Performed By: #### U AWM2 #### [facility] [address] [place] [address] CASTS 2 NONE SEEN Normal [facility] Comment on above: Performed By: #### U AWM2 #### [facility] [address] [place] [address] Crystals LM Nom (Urine sed) NONE SEEN Normal NONE SEEN [facility] Comment on above: Performed By: #### U AWM2 #### [facility] [address] [place] [address] EPITHELIAL NONE SEEN Normal 3-5/hpf [facility] Comment on above: Performed By: #### U AWM2 #### [facility] [address] [place] [address] MISCELLANEOUS 2 NONE SEEN Normal [facility] Comment on above: Performed By: #### U AWM2 #### [facility] [address] [place] [address] RBC NONE SEEN Normal 0-2/hpf [facility] Comment on above: Performed By: #### U AWM2 #### [facility] [address] [place] [address] RENAL EPITHELIAL NONE SEEN Normal NONE SEEN [facility] Comment on above: Performed By: #### U AWM2 #### [facility] [address] [place] [address] WBC NONE SEEN Normal 0-4/hpf [facility] Comment on above: Performed By: #### U AWM2 #### [facility] [address] [place] [address] YEAST NONE SEEN Normal NONE SEEN [facility] Comment on above: Performed By: #### U AWM2 #### [facility] [address] [place] [address] Bilirubin Ql (U) Negative Normal NEGATIVE [facility] Comment on above: Performed By: #### U AWM2 #### [facility] [address] [place] [address] CHARACTER CLEAR Normal CLR-SL.CLOUD [facility] Comment on above: Performed By: #### U AWM2 #### [facility] [address] [place] [address] Color (U) YELLOW Normal YELLOW-STRAW [facility] Comment on above: Performed By: #### U AWM2 #### [facility] [address] [place] [address] Glucose Ql (U) Negative Normal NEGATIVE [facility] Comment on above: Performed By: #### U AWM2 #### [facility] [address] [place] [address] Hemoglobin Ql (U) Negative Normal NEGATIVE [facility] Comment on above: Performed By: #### U AWM2 #### [facility] [address] [place] [address] Ketones Ql (U) Negative Normal NEGATIVE [facility] Comment on above: Performed By: #### U AWM2 #### [facility] [address] [place] [address] LEUKOCYTES Negative Normal NEGATIVE [facility] Comment on above: Performed By: #### U AWM2 #### [facility] [address] [place] [address] Nitrite Ql (U) Negative Normal NEGATIVE [facility] Comment on above: Performed By: #### U AWM2 #### [facility] [address] [place] [address] pH (U) 6.5 [pH] Normal 5.0 - 9.0 [facility] Comment on above: Performed By: #### U AWM2 #### [facility] [address] [place] [address] Protein Ql (U) Negative Normal NEGATIVE [facility] Comment on above: Performed By: #### U AWM2 #### [facility] [address] [place] [address] Specific gravity (U) [Rel density] 1.007 Normal 1.002-1.030 [facility] Comment on above: Performed By: #### U AWM2 #### [facility] [address] [place] [address] Urobilinogen Qn (U) 1.0 {Butch'U}/dL Normal 0.0 - 1. 0 [facility] Comment on above: Performed By: #### U AWM2 #### [address] [address] Urinalysis dipstick W Reflex Microscopic panel (U)on 02-27-2024 Bacteria, UA NONE SEEN FEW/NONE SEEN [facility] Bilirubin Ql (U) Negative NEGATIVE [facility] Casts LM.LPF (Urine sed) [#/Area] NONE SEEN /lpf [facility] Character (U) CLEAR CLR-SL.CLOUD [facility] Charcoal LM Ql (Urine sed) NONE SEEN [facility] Comment on above: Performed at [facility] [address] [place] [address] Color (U) YELLOW YELLOW-STRAW [facility] Crystals LM Ql (Urine sed) NONE SEEN NONE SEEN [facility] Epithelial Cells, UA NONE SEEN 3-5/hpf /hpf [facility] Epithelial cells.renal LM.HPF (Urine sed) [#/Area] NONE SEEN NONE SEEN [facility] Fungi.yeastlike LM Ql (Urine sed) NONE SEEN NONE SEEN [facility] Glucose Auto test strip Ql (U) Negative NEGATIVE mg/dl [facility] Hemoglobin Auto test strip Ql (U) Negative NEGATIVE [facility] Ketones Auto test strip Ql (U) Negative NEGATIVE [facility] Leukocyte esterase Auto test strip Ql (U) Negative NEGATIVE [facility] Nitrite Auto test strip Ql (U) Negative NEGATIVE [facility] pH (U) 6.5 [pH] 5.0 - 9.0 [facility] Protein (U) [Mass/Vol] Negative NEGATIVE mg/dl [facility] RBC LM.HPF (Urine sed) [#/Area] NONE SEEN 0-2/hpf /hpf [facility] Specific [place], UA 1.007 1.002 - 1.030 [facility] Urobilinogen, Urine 1.0 [facility] WBC LM.HPF (Urine sed) [#/Area] NONE SEEN 0-4/hpf /hpf [facility] Urine Drug Screenon 02-27-20 24 Amphetamines Screen Ql (U) Negative NEGATIVE [facility] Barbiturates Screen Ql (U) Negative NEGATIVE [facility] Benzodiazepines Ql (U) Negative NEGATIVE [facility] Benzoylecgonine Screen Ql (U) Negative NEGATIVE [facility] Cannabinoids Screen Ql (U) Positive NEGATIVE [facility] Fentanyl Negative NEGATIVE [facility] Comment on above: A Negative [...] are for medical use only. Performed at [facility] [address] [place] [address] Opiates Screen Ql (U) Negative NEGATIVE [facility] Oxycodone Negative NEGATIVE [facility] Phencyclidine Ql (U) Negative NEGATIVE [facility] VITAMIN D TOTAL 25 (OH)on VITAMIN D TOTAL 25 (OH) 32 ng/ml Normal 30-100 [facility] Comment on above: Result Comment: Lashanda min D Status Range Deficiency <20 ng/ml Insuffiency 20-30 ng/ml Sufficiency 30-100 ng/ml Toxicity >100 ng/ml Performed By: #### C VFLU #### [address] [address] Vitamin D 25 Hydroxyon 02-26 25-hydroxyvitamin D3 [Mass/Vol] 32 ng/mL 30 - 100 ng/ml [facility] Comment on above: Vitamin D Status Ran ge Deficiency <20 ng/ml Insuffiency 20-30 ng/ml Sufficiency 30-100 ng/ml Toxicity >100 ng/ml Performed at [facility] [address] [place] [address] Basic Metabolic Profon 02-25 Anion gap [Moles/Vol] 15 mmol/L Normal - [facility] Comment on above: Performed By: #### T MARY CHEN, BMP #### [facility] [address] [place] [address] [place] [address] Kiln Puller: Ramo Jesus MD BUN/CRE Ratio 11 Normal 01-18 [facility] Comment on above: Performed By: #### T MARY CHEN, BMP #### [facility] [address] [place] [address] Kiln Puller: Ramo Jesus MD Calcium [Mass/Vol] 9.3 mg/dL Normal 8.6-10.4 [facility] Comment on above: Performed By: #### T MAYR CHEN, BMP #### [facility] [address] [place] [address] Kiln Puller: Ramo Jesus MD Chloride [Moles/Vol] 97 mmol/L Low 98-107 [facility] Comment on above: Performed By: #### MARY RODAS, BMP #### [facility] [address] [place] [address] Kiln Puller: Ramo Jesus MD CO2 [Moles/Vol] 23 mmol/L Normal 20-31 [facility] Comment on above: Performed By: #### MARY RODAS, BMP #### [facility] [address] [place] [address] Kiln Puller: Ramo Jesus MD Creatinine [Mass/Vol] 1.2 mg/dL Normal 0.70-1.20 [facility] Comment on above: Performed By: #### MARY RODAS, BMP #### [facility] [address] [place] [address] Kiln Puller: Ramo Jesus MD GFR/1.73 sq M.predicted among non-blacks MDRD (S/P/Bld) [Vol rate/Area] 80 mL/min/{1.73_m2} Normal >60 [facility] Comment on above: Result Comment: These [...] By: #### T MARY CHEN, BMP #### [facility] [address] [place] [address] Kiln Puller: Ramo Jesus MD Glucose [Mass/Vol] 100 mg/dL High 74-99 [facility] Comment on above: Performed By: #### MARY RODAS, BMP #### [facility] [address] [place] [address] Kiln Puller: Ramo Jesus MD Potassium [Moles/Vol] 3.3 mmol/L Low 3.7-5.3 [facility] Comment on above: Performed By: #### T MARY CHEN, BMP #### [facility] [address] [place], [place] [phone] Kiln Puller: Ramo Jesus MD Sodium [Moles/Vol] 135 mmol/L Low 136-145 [facility] Comment on above: Performed By: #### T MARY CHEN, BMP #### [address] [place], [place] [phone] Kiln Puller: Ramo Jesus MD Urea nitrogen [Mass/Vol] 13 mg/dL Normal 6-20 [facility] Comment on above: Performed By: #### T MARY CHEN, BMP #### [address] [place], [place] 8147783 Kiln Puller: Ramo Jesus MD C-Reactive Proteinon 024 CRP [Mass/Vol] 81.9 mg/L High 0.0-5.0 [facility] Comment on above: Performed By: #### S ED, CRP #### [address] [place], [place] [phone] Kiln Puller: Ramo Jesus MD CBC with Diffon 02-26-2024 Abs. Basophil 0.04 k/uL Normal 0.0-0.2 [facility] Comment on above: Performed By: #### T MARY CHEN, BMP #### [address] [place], [place] [phone] Kiln Puller: Ramo Jesus MD Abs.Imm.Granulocyte 0.04 k/uL Normal 0.00-0.30 [facility] Comment on above: Performed By: #### T MARY CHEN, BMP #### [address] [place], [place] [phone] Kiln Puller: Ramo Jesus MD Abs.Neutrophil (Seg) 2.58 k/uL Normal 1.50-8.10 [facility] Comment on above: Performed By: #### MARY RODAS, BMP #### [facility] [address] [place], [place] [phone] Kiln Puller: Ramo Jesus MD Basophils/100 WBC (Bld) 1 % Normal 0-2 [facility] Comment on above: Performed By: #### MARY RODAS, BMP #### [address] [place], [place] [phone] Kiln Puller: Ramo Jesus MD Eosinophils (Bld) [#/Vol] 0.08 10*3/uL Normal 0.00-0.44 [facility] Comment on above: Performed By: #### MARY RODSA, BMP #### [address] [place], [place] [phone] Kiln Puller: Ramo Jesus MD Eosinophils/100 WBC (Bld) 2 % Normal 1-4 [facility] Comment on above: Performed By: #### MARY RODAS, BMP #### [address] [place], [place] [phone] Kiln Puller: Ramo Jesus MD Immature granulocytes/100 WBC (Bld) 1 % High 0 [facility] Comment on above: Performed By: #### MARY RODAS, BMP #### [facility] [address] [place] [address] [address] [place], [place] [phone] Kiln Puller: Ramo Jesus MD Lymphocytes (Bld) [#/Vol] 1.03 10*3/uL Low 1.10-3.70 [facility] Comment on above: Performed By: #### MARY RODAS, BMP #### [address] [place] [address] Kiln Puller: Ramo Jesus MD Lymphocytes/100 WBC (Bld) 25 % Normal 24-43 [facility] Comment on above: Performed By: #### T MARY CHEN, BMP #### [facility] [address] [place], [place] 1974383 Kiln Puller: Ramo Jesus MD Monocytes (Bld) [#/Vol] 0.33 10*3/uL Normal 0.10-1.20 [facility] Comment on above: Performed By: #### T GUSTAVO CDP, BMP #### [facility] [address] [place], [place] [address] Kiln Puller: Ramo Jesus MD Monocytes/100 WBC (Bld) 8 % Normal 3-12 [facility] Comment on above: Performed By: #### T MARY CHEN, BMP #### [facility] [address] [place], [facility] Kiln Puller: Ramo Jesus MD Morphology Gianni (Bld) [Interp] Normal Normal [facility] Comment on above: Performed By: #### T MARY CHEN, BMP #### [facility] [address] [place], [place] [address] Kiln Puller: Ramo Jesus MD Neutrophil (Seg) 63 % Normal 36-65 [facility] Comment on above: Performed By: #### T MARY CHEN, BMP #### [facility] [address] [place], [place] [address] Kiln Puller: Ramo Jesus MD Platelet, Fluoresc. 117 k/uL Low 138-453 [facility] Comment on above: Performed By: #### T MARY CHEN, BMP #### [facility] [address] [place], [facility] Kiln Puller: Ramo Jesus MD PLT, Immature Fract. 3.6 % Normal 1.1-10.3 [facility] Comment on above: Performed By: #### T GUSTAVO CDP, BMP #### [address] [place], [place] [phone] Kiln Puller: Ramo Jesus MD Erythrocyte distribution width (RBC) [Ratio] 12.0 % Normal 11.8-14.4 [facility] Comment on above: Performed By: #### MARY RODAS, BMP #### [address] [place], [facility] Kiln Puller: Ramo Jesus MD Hematocrit (Bld) [Volume fraction] 41.0 % Normal 40.7-50.3 [facility] Comment on above: Performed By: #### MARY RODAS, BMP #### [address] [place], [facility] Kiln Puller: Ramo Jesus MD Hemoglobin (Bld) [Mass/Vol] 14.7 g/dL Normal 13.0-17.0 [facility] Comment on above: Performed By: #### MARY RODAS, BMP #### [address] [place], [facility] Kiln Puller: Ramo Jesus MD MCH (RBC) [Entitic mass] 31.1 pg Normal 25.2-33.5 [facility] Comment on above: Performed By: #### MARY RODAS, BMP #### [address] [place], [place] [address] Kiln Puller: Ramo Jesus MD MCHC (RBC) [Mass/Vol] 35.9 g/dL High 28.4-34.8 [facility] Comment on above: Performed By: #### MARY RODAS, BMP #### [address] [place] [address] Kiln Puller: Ramo Jesus MD MCV (RBC) [Entitic vol] 86.9 fL Normal 82.6-102.9 [facility] Comment on above: Performed By: #### MARY RODAS, BMP #### [facility] [address] [place] [address] Kiln Puller: Ramo Jesus MD NRBC Automated 0.0 per 100 WBC Normal 0.0 [facility] Comment on above: Performed By: #### T MARY CHEN, BMP #### [facility] [address] [place] [address] Kiln Puller: Ramo Jesus MD Platelet Count See Reflexed IPF Result Normal 138-453 [facility] Comment on above: Performed By: #### T MARY CHEN, BMP #### [facility] [address] [place] [address] Kiln Puller: Ramo Jesus MD RBC (Bld) [#/Vol] 4.72 10*6/uL Normal 4.21-5.77 [facility] Comment on above: Performed By: #### T MARY CHEN, BMP #### [facility] [address] [place] [address] Kiln Puller: Ramo Jesus MD WBC (Bld) [#/Vol] 4.1 10*3/uL Normal 3.5-11.3 [facility] Comment on above: Performed By: #### T MARY CHEN, BMP #### [facility] [address] [place] [address] Kiln Puller: Ramo Jesus MD CT HEAD WO CONTRASTon [...] Sam Rockwell DO 02/26/24 Final result Normal [facility] CTA HEAD NECK W CONTRASTon 1 [...] Sam Rockwell DO 02/26/24 Final result Normal [facility] Glucose, Whole Bloodon 02-25 Glucose [Mass/Vol] 105 mg/dL High 74-100 [facility] Liver Profileon 02-26-2024 Albumin [Mass/Vol] 4.1 g/dL Normal 3.5-5.2 [facility] Comment on above: Performed By: #### L IVP ####[address] , [place] [id number] Lab Director: Ramo Jesus MD Albumin/Glob Ratio 1.3 Normal 1.0-2.5 [facility] Comment on above: Performed By: #### L IVP ####[address] , [place] [id number] Lab Director: Ramo Jesus MD Alkaline Phos 97 U/L Normal 40-129 [facility] Comment on above: Performed By: #### L IVP ####[address] , [place] [id number] Lab Director: Ramo Jesus MD ALT [Catalytic activity/Vol] 45 U/L Normal 10-50 [facility] Comment on above: Performed By: #### L IVP ####[address] [place] [address] Lab Director: Ramo Jesus MD AST [Catalytic activity/Vol] 54 U/L High 10-50 [facility] Comment on above: Performed By: #### L IVP ####[address] [place] [address] Lab Director: Ramo Jesus MD Bilirubin [Mass/Vol] 1.1 mg/dL Normal 0.00-1.20 [facility] Comment on above: Performed By: #### L IVP ####[address] [place] [address] Lab Director: Ramo Jesus MD Bilirubin, Indirect 0.6 mg/dL Normal 0.0-1.0 [facility] Comment on above: Performed By: #### L IVP ####[address] , [place] [id number] Lab Director: Ramo Jesus MD Bilirubin.indirect [Mass/Vol] 0.5 mg/dL High 0.00-0.30 [facility] Comment on above: Performed By: #### L IVP ####[facility] , [place] 1630983 Lab Director: Ramo Jesus MD Protein [Mass/Vol] 7.2 g/dL Normal 6.6-8.7 [facility] Comment on above: Performed By: #### L IVP ####[facility] , [place] [id number] Lab Director: Ramo Jesus MD Prolactinon 02-26-2024 Prolactin 4.70 ng/mL Normal 4.04-15.2 [facility] Comment on above: Result Comment: The presence of macroprolactin may cause interference in female patients with various endocrinological diseases or during . Performed By: #### P ROL #### [place] [address] [place], [place] 5860308 Kiln Puller: Ra Kilpatrick MD Sedimentation Rateon 024 Sedimentation Rate 17 mm/Hr High 0-15 [facility] Comment on above: Performed By: #### S ED, CRP #### [facility] [address] [place] [address] Kiln Puller: Ramo Jesus MD Troponinon 02-26-2024 Troponin, High Sens 9 ng/L Normal 0-22 [facility] Comment on above: Result Comment: High Sensitivity Troponin values cannot be compared with other Troponin methodologies. Performed By: #### T ROPI, CDP, BMP #### [facility] [address] [place] [address] Kiln Puller: Ramo Jesus MD UA w/Reflex Cultureon 2023 Bilirubin, SemiQt,Ur Negative Normal NEG [facility] Comment on above: Performed By: #### U AX, UMICAO #### [facility] [address] [place], [place] [address] Kiln Puller: Ramo Jesus MD Blood, Urine Negative Normal NEG [facility] Comment on above: Performed By: #### U AX, UMICAO #### [facility] [address] [place], [place] [phone] Kiln Puller: Ramo Jesus MD Clarity (U) Clear Normal CLEAR [facility] Comment on above: Performed By: #### U AX, UMICAO #### [facility] [address] [place] [address] [address] [place], [place] [phone] Kiln Puller: Ramo Jesus MD Color (U) Yellow Normal YEL [facility] Comment on above: Performed By: #### U AX, UMICAO #### [address] [place], [place] [phone] Kiln Puller: Ramo Jesus MD Glucose Ql (U) Negative Normal NEG [facility] Comment on above: Performed By: #### U AX, UMICAO #### [facility] [address] [place] [address] [address] [place], [place] [phone] Kiln Puller: Ramo Jesus MD Ketones Ql (U) 2+ mg/dL Abnormal NEG [facility] Comment on above: Performed By: #### U AX, UMICAO #### [address] [place], [place] 1945283 Kiln Puller: Ramo Jesus MD Leukocyte esterase Test strip Ql (U) Negative Normal NEG [facility] Comment on above: Performed By: #### U AX, UMICAO #### [facility] [address] [place] [address] [address] [place], [place] 8981483 Kiln Puller: Ramo Jesus MD Nitrite,Ur Negative Normal NEG [facility] Comment on above: Performed By: #### U AX, UMICAO #### [facility] [address] [place] [address] [address] [place], [place] [phone] Kiln Puller: Ramo Jesus MD PH,Ur 6.0 Normal 5.0-9.0 [facility] Comment on above: Performed By: #### U AX, UMICAO #### [facility] [address] [place], [place] [phone] Kiln Puller: Ramo Jesus MD Protein Ql (U) Negative Normal NEG [facility] Comment on above: Performed By: #### U AX, UMICAO #### [facility] [address] [place] [address] Kiln Puller: Ramo Jesus MD Spec. [place],Ur 1.010 Normal 1.010-1.020 [facility] Comment on above: Performed By: #### U AX, UMICAO #### [address] [place] [address] Kiln Puller: Ramo Jesus MD Urobilinogen,Ur Normal Normal 0.0-1.0 [facility] Comment on above: Performed By: #### U AX, UMICAO #### [address] [place] [address] Kiln Puller: Ramo Jesus MD Urinalysis,Microon 4 Bacteria TRACE Abnormal NONE [facility] Comment on above: Performed By: #### U AX, UMICAO ####[address] [place] [address] [facility] Director: Ramo Jesus MD Epithelial cells LM Ql (Urine sed) 0 TO 2 Normal 0-5 [facility] Comment on above: Performed By: #### U AX, UMICAO ####[facility] , [place] [phone] [facility] Director: Ramo Jesus MD Urine RBC's 0 TO 2 Normal 0-2 [facility] Comment on above: Performed By: #### U AX, UMICAO ####[facility] , [place] [phone] [facility] Director: Ramo Jesus MD Urine WBC's 0 TO 2 Normal 0-5 [facility] Comment on above: Performed By: #### U AX, ESDRAS ####[facility] [place] [address] lab Director: Ramo Jesus MD XR CHEST PORTABLEon 02-26-20 XR CHEST PORTABLE EXAMINATION: ONE XRAY VIEW OF THE CHEST 02/26/2024 1:06 pm COMPARISON: None. HISTORY: ORDERING SYSTEM PROVIDED HISTORY: syncope TECHNOLOGIST PROVIDED HISTORY: syncope 33-year-old male with syncope FINDINGS: AP portable view of the chest weed cutter leads overlie the chest Trachea midline. No pneumothorax. No acute focal airspace consolidation or pleural effusions. Cardiac and mediastinal contours within normal limits. No acute osseous abnormality. IMPRESSION: No acute focal airspace consolidation or effusions. Interpreted by: Rubio Suarez MD Signed by: Rubio Suarez MD 02/26/24 Final result Normal [facility] OPERATIVE REPORTon 3 OPERATIVE REPORT [address] [address] OPERATIVE REPORT PATIENT NAME: ETHAN DONALD : 1990 MED REC NO: [id number] ROOM: ACCOUNT NO: [id number] ADMIT DATE: 03/13/2023 PROVIDER: Jon Reynoso DATE OF PROCEDURE: 03/13/2023 PREOPERATIVE DIAGNOSES: 1. Subluxing patella. 2. Chondromalacia. 3. 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 POSTOPERATIVE DIAGNOSES: 1. Subluxing patella. 2. [...] was then oversewn with 2-0 Vicryl interrupted axxjex-sp-crndk sutures. Skin margins were injected with 0.5% [...] the office in two weeks. JON REYNOSO PH/Emiliana_[email or web address]_T Doc#: [id number] CC: Normal [facility] XR KNEE RIGHT (1-2 VIEWS)on 03-13-2023 [...] Alfonso Charles MD 03/13/23 Final result Normal [facility] GROUP A STREP CULTUREon 07-30 S. pyogenes Ag Ql (Unsp spec) Culture Observations: NEGATIVE FOR GROUP A STREPTOCOCCUS. Normal [facility] Comment on above: Performed By: #### S SCRN, GRASTCX #### [facility] [address], [place] [address] Dr. Pratibha Stevenson STREPT SCREENon 08-11-2022 STREP SCREEN A Negative Normal NEGATIVE [facility] Comment on above: Performed By: #### S SCRN, GRASTCX #### [facility] [address] [place], [place] [address] Dr. Pratibha Stevenson AMYLASEon 07-23-2022 Amylase [Catalytic activity/Vol] 50 U/L Normal 25-115 [facility] [place] [facility] Comment on above: Performed By: #### E RUR #### [facility] [address] [place] [address] Dr. Pratibha Stevenson CBC AUTO DIFFon 07-23-2022 BASO # 0.1 103/ul Normal 0.0-0.1 [facility] [place] [facility] Comment on above: Performed By: #### L ACT #### [facility] [address] [place] [address] Dr. Pratibha Stevenson Basophils/100 WBC (Bld) 1.0 % Normal 0.2-2.0 [facility] [place] [facility] Comment on above: Performed By: #### L ACT #### [facility] [address] [place] [address] Dr. Pratibha Stevenson EO # 0.1 103/ul Normal 0.0-0.7 [facility] [place] [facility] Comment on above: Performed By: #### L ACT #### [facility] [address] [place] [address] Dr. Pratibha Stevenson Eosinophils/100 WBC (Bld) 1.7 % Normal 0.9-7.0 [facility] [place] [facility] Comment on above: Performed By: #### L ACT #### [facility] [address] [place] [address] Dr. Pratibha Stevenson Erythrocyte distribution width (RBC) [Ratio] 12.1 % Normal 11.0-15.0 [facility] [place] [facility] Comment on above: Performed By: #### L ACT #### [facility] [address] [place] [address] Dr. Pratibha Stevenson Hematocrit (Bld) [Volume fraction] 45.9 % Normal 42.0-54.0 [facility] [place] [facility] Comment on above: Performed By: #### L ACT #### [facility] [address] [place] [address] Dr. Pratibha Stevenson Hemoglobin (Bld) [Mass/Vol] 15.6 g/dL Normal 14.0-18.0 [facility] [place] [facility] Comment on above: Performed By: #### L ACT #### [facility] [address] [place] [address] Dr. Pratibha Stevenson IG # 0.01 10e3/ul Normal 0.00-0.03 [facility] [place] [facility] Comment on above: Performed By: #### L ACT #### [facility] [address] [place] [address] Dr. Pratibha Stevenson IG % 0.1 % Normal 0.0-0.5 [facility] [place] [facility] Comment on above: Performed By: #### L ACT #### [facility] [address] [place] [address] Dr. Pratibha Stevenson LYMPH # 2.0 103/ul Normal 1.2-3.8 [facility] [place] [facility] Comment on above: Performed By: #### L ACT #### [facility] [address] [place] [address] Dr. Pratibha Stevenson Lymphocytes/100 WBC (Bld) 28.8 % Normal 20.5-60.0 [facility] [place] [facility] Comment on above: Performed By: #### L ACT #### [facility] [address] [place] [address] Dr. Pratibha Stevenson MANUAL DIFF REQ NO Normal [facility] Comment on above: Performed By: #### L ACT #### [facility] [address] [place] [address] Dr. Pratibha Stevenson MCH (RBC) [Entitic mass] 31.3 pg Normal 25.9-34.0 [facility] [place] [facility] Comment on above: Performed By: #### L ACT #### [facility] [address] [place] [address] Dr. Pratibha Stevenson MCHC (RBC) [Mass/Vol] 34.0 g/dL Normal 29.9-35.2 [facility] [place] [facility] Comment on above: Performed By: #### L ACT #### [facility] [address] [place] [address] Dr. Pratibha Stevenson MCV (RBC) [Entitic vol] 92.2 fL Normal 80.0-94.0 [facility] [place] [facility] Comment on above: Performed By: #### L ACT #### [facility] [address] [place] [address] Dr. Pratibha Stevenson MONO # 0.3 103/ul Normal 0.3-0.8 [facility] Comment on above: Performed By: #### L ACT #### [facility] [address] [address] [address] Pratibha Stevenson Monocytes/100 WBC (Bld) 4.3 % Normal 1.7-12.0 [facility] [place] [facility] Comment on above: Performed By: #### L ACT #### [facility] [address] [address] [address] Pratibha Stevenson NEUT # 4.5 103/ul Normal 1.4-6.5 [facility] [place] [facility] Comment on above: Performed By: #### L ACT #### [facility] [address] [place] [address] Dr. Pratibha Stevenson Neutrophils/100 WBC (Bld) 64.1 % Normal 43.0-75.0 [facility] [place] [facility] Comment on above: Performed By: #### L ACT #### [facility] [address] [place] [address] Dr. Pratibha Stevenson Platelet mean volume (Bld) [Entitic vol] 10.3 fL Normal 9.5-13.5 [facility] [place] [facility] Comment on above: Performed By: #### L ACT #### [facility] [address] [place] [address] Dr. Pratibha Stevenson PLT 219 103/ul Normal 150-450 [facility] Comment on above: Performed By: #### L ACT #### [facility] [address] [place] [address] Dr. Pratibha Stevenson RBC 4.98 106/ul Normal 4.70-6.10 [facility] Comment on above: Performed By: #### L ACT #### [facility] [address] [place] [address] Dr. Pratibha Stevenson WBC 7.1 103/ul Normal 4.0-11.0 [facility] Comment on above: Performed By: #### L ACT #### [facility] [address] [place] [address] ABD/PELV W CONon [...] YING WALTON Date: 2022-07-22 23:53 Normal [facility] DRUG SCREEN RAPID (URINE)on 07-23-2022 AMP Negative Normal NEGATIVE [facility] Comment on above: Performed By: #### E RUR #### [facility] [address] [address] [address] Pratibha Stevenson BAR Negative Normal NEGATIVE [facility] Comment on above: Performed By: #### E RUR #### [facility] [id number] Pratibha Stevenson BUP Negative Normal NEGATIVE [facility] Comment on above: Performed By: #### E RUR #### [facility] [address] [address] [address] Pratibha Stevenson BZO Negative Normal NEGATIVE [facility] Comment on above: Performed By: #### E RUR #### [facility] [address] [place] [address] Dr. Pratibha Stevenson EEMLY Negative Normal NEGATIVE [facility] Comment on above: Performed By: #### E RUR #### [facility] [address] [place] [address] Dr. Pratibha Stevenson CUT-OFFS SEE BELOW Normal [facility] Comment on above: Result Comment: AMP (Amphetamine): 500ng/mL, BAR (Barbituates): 200 ng/mL, BZO (Benzodiazepines): 150 ng/mL, BUP (Buprenorphine): 10 ng/mL, EMELY (Cocaine): 150 ng/mL, mAMP (Methamphetamine): 500 ng/mL, MTD (Methadone): 200 ng/mL, OPI (Opiates): 100 ng/mL, OXY (Oxycodone): 100 ng/mL, PCP (Phencyclidine): 25 ng/mL, PPX (Propoxyphene): 300 ng/mL, THC (Cannabinoids): 50 ng/mL, TCA (Trycyclic Antidepressants): 300 ng/mL Performed By: #### E RUR #### [facility] [address] [place] [address] Dr. Pratibha Stevenson DRUG CUT HEADER DRUG CLASS TEST SYST EM CUT-OFF CONCENTRATIONS ARE FOLLOWS: Normal [facility] Comment on above: Performed By: #### E RUR #### [facility] [address] [place] [address] Dr. Pratibha Stevenson mAMP Negative Normal NEGATIVE [facility] Comment on above: Performed By: #### E RUR #### [facility] [address] [address] [address] Pratibha Stevenson MTD Negative Normal NEGATIVE [facility] Comment on above: Performed By: #### E RUR #### [facility] [address] [place] [address] Dr. Pratibha Stevenson OPI Positive Abnormal NEGATIVE [facility] Comment on above: Performed By: #### E RUR #### [facility] [address] [place] [address] Dr. Pratibha Stevenson OXY Negative Normal NEGATIVE [facility] Comment on above: Performed By: #### E RUR #### [facility] [address] [place] [address] Dr. Pratibha Stevenson PCP Negative Normal NEGATIVE [facility] Comment on above: Performed By: #### E RUR #### [facility] [address] [place] [address] Dr. Pratibha Stevenson PPX Negative Normal NEGATIVE [facility] Comment on above: Performed By: #### E RUR #### [facility] [address] [place] [address] Dr. Pratibha Stevenson TCA Positive Abnormal NEGATIVE [facility] Comment on above: Performed By: #### E RUR #### [facility] [address] [place] [address] Dr. Pratibha Stevenson THC Positive Abnormal NEGATIVE [facility] Comment on above: Performed By: #### E RUR #### [facility] [address] [place] [address] Dr. Pratibha Stevenson ER URINE PROFILEon 3 Bilirubin Ql (U) Negative Normal NEGATIVE [facility] Comment on above: Performed By: #### E RUR #### [facility] [address] [place] [address] Dr. Pratibha Stevenson Clarity (U) CLEAR Normal CLEAR [facility] Comment on above: Performed By: #### E RUR #### [facility] [address] [place] [address] Dr. Pratibha Stevenson Color (U) LT. YELLOW Normal YELLOW [facility] Comment on above: Performed By: #### E RUR #### [facility] [address] [place] [address] Dr. Pratibha RIOS A micrscopic examination will be performed if indicated. Normal [facility] Comment on above: Performed By: #### E RUR #### [facility] [address] [place] [address] Dr. Pratibha Stevenson Glucose Ql (U) Negative Normal NEGATIVE [facility] Comment on above: Performed By: #### E RUR #### [facility] [address] [place] [address] Dr. Pratibha Stevenson Hemoglobin Ql (U) Negative Normal NEGATIVE [facility] Comment on above: Performed By: #### E RUR #### [facility] [address] [place] [address] Dr. Pratibha Stevenson Ketones Ql (U) Negative Normal NEGATIVE [facility] Comment on above: Performed By: #### E RUR #### [facility] [address] [place] [address] Dr. Pratibha Stevenson LEUKOCYTES Negative Normal NEGATIVE [facility] Comment on above: Performed By: #### E RUR #### [facility] [address] [place] [address] Dr. Pratibha Stevenson Nitrite Ql (U) Negative Normal NEGATIVE [facility] Comment on above: Performed By: #### E RUR #### [facility] [address] [place] [address] Dr. Pratibha Stevenson pH (U) 5.5 [pH] Normal 5-9 [facility] Comment on above: Performed By: #### E RUR #### [facility] [address] [place] [address] Dr. Pratibha Stevenson SPEC GRAVITY <=1.005 Abnormal 1.005-<=1.025 [facility] Comment on above: Performed By: #### E RUR #### [facility] [address] [place] [address] Dr. Pratibha Stevenson UA PROTEIN Negative Normal NEGATIVE/ TRACE [facility] Comment on above: Performed By: #### E RUR #### [facility] [address] [place] [address] Dr. Pratibha Stevenson UR MICRO IND NOT INDICATED Normal [facility] Comment on above: Performed By: #### E RUR #### [facility] [address] [place] [address] Dr. Pratibha Stevenson Urobilinogen Qn (U) 0.2 {Butch'U}/dL Normal 0.2 - 1. 0 [facility] Comment on above: Performed By: #### E RUR #### [facility] [address] [place] [address] Dr. Pratibha Stevenson LIPASEon 07-23-2022 Lipase [Catalytic activity/Vol] 126.0 U/L Normal 73.0-393.0 [facility] Comment on above: Performed By: #### E RUR #### [facility] [address] [place] [address] Dr. Pratibha Stevenson PROF 14(COMP METB)on 023 Albumin [Mass/Vol] 4.2 g/dL Normal 3.4-5.[address] [facility] Comment on above: Performed By: #### E RUR #### [facility] [address] [place] [address] Dr. Pratibha Stevenson Albumin/Globulin [Mass ratio] 1.4 {ratio} Normal [facility] Comment on above: Performed By: #### E RUR #### [facility] [address] [place] [address] Dr. Pratibha Stevenson ALP [Catalytic activity/Vol] 87 U/L Normal 46-116 [facility] Comment on above: Performed By: #### E RUR #### [facility] [address] [place] [address] Dr. Pratibha Stevenson ALT [Catalytic activity/Vol] 20 U/L Normal 16-63 [facility] Comment on above: Performed By: #### E RUR #### [facility] [address] [place] [address] Dr. Pratibha Stevenson Anion gap [Moles/Vol] 12.8 mmol/L Normal [facility] Comment on above: Performed By: #### E RUR #### [facility] [address] [place] [address] Dr. Pratibha Stevenson AST [Catalytic activity/Vol] 18 U/L Normal 15-37 [facility] Comment on above: Performed By: #### E RUR #### [facility] [address] [place] [address] Dr. Pratibha Stevenson Bilirubin [Mass/Vol] 0.5 mg/dL Normal 0.2-1.0 [facility] Comment on above: Performed By: #### E RUR #### [facility] [address] [place] [address] Dr. Pratibha Stevenson Calcium [Mass/Vol] 9.2 mg/dL Normal 8.5-10.[address] [facility] Comment on above: Performed By: #### E RUR #### [facility] [address] [place] [address] Dr. Pratibha Stevenson Chloride [Moles/Vol] 101 mmol/L Normal 98-107 [facility] Comment on above: Performed By: #### E RUR #### [facility] [address] [place] [address] Dr. Pratibha Stevenson CO2 [Moles/Vol] 24.7 mmol/L Normal 21.0-32.0 [facility] Comment on above: Performed By: #### E RUR #### [facility] [address] [place] [address] Dr. Pratibha Stevenson Creatinine [Mass/Vol] 1.20 mg/dL Normal 0.70-1.30 [facility] Comment on above: Performed By: #### E RUR #### [facility] [address] [place] [address] Dr. Pratibha Stevenson EGFR-AF FRENCH >60 Normal >=60 [facility] Comment on above: Performed By: #### E RUR #### [facility] [address] [place] [address] Dr. Pratibha Stevenson EGFR-NON AF FRENCH >60 Normal >=60 [facility] Comment on above: Performed By: #### E RUR #### [facility] [address] [place] [address] Dr. Pratibha Stevenson Globulin (S) [Mass/Vol] 3.1 g/dL Normal [facility] Comment on above: Performed By: #### E RUR #### [facility] [address] [place] [address] Dr. Pratibha Stevenson Glucose [Mass/Vol] 128 mg/dL Critically high 74-106 [facility] Comment on above: Performed By: #### E RUR #### [facility] [address] [place] [address] Dr. Pratibha Stevenson Potassium [Moles/Vol] 3.5 mmol/L Normal 3.5-5.1 [facility] Comment on above: Performed By: #### E RUR #### [facility] [address] [address] [address] Pratibha Stevenson Protein [Mass/Vol] 7.3 g/dL Normal 6.4-8.[address] [facility] Comment on above: Performed By: #### E RUR #### [facility] [address] [address] [address] Pratibha Stevenson Sodium [Moles/Vol] 135 mmol/L Critically low 136-145 [facility] Comment on above: Performed By: #### E RUR #### [facility] [address] [place] [address] Dr. Pratibha Stevenson Urea nitrogen [Mass/Vol] 10.0 mg/dL Normal 7.0-18.0 [facility] Comment on above: Performed By: #### E RUR #### [facility] [address] [place] [address] Dr. Pratibha Stevenson Urea nitrogen/Creatinine [Mass ratio] 8.3 mg/mg Normal [facility] Comment on above: Performed By: #### E RUR #### [facility] [address] [place] [address] Dr. Pratibha Stevenson Screenson 07-22-2022 Screens [id number]. 00CD:127 Normal [facility] Screens [id number]. 00CD:127 Normal [facility] Patient Educationon 07-22-19 Patient Education Urology [...] Rhubarb. ? Beets. ? Potato chips and namibian fries. ? Nuts. ? If you regularly take a diuretic medicine, make sure to eat at least 1?2 fruits or vegetables high in potassium each day. These include: ? Avocado. ? Banana. ? [place], prune, carrot, or tomato juice. ? Baked [...] loco (more content not included)... Normal [facility] Urology Office/Clinic Noteon 07-21-2022 Urology Office/Clinic [...] Monday. Pt had CT scans done at [facility]. Pt states the pain is now moving [...] (more content not included)... Normal [facility] Comment on above: Result Comment: Elec tronically Signed By: Handy WILEY, Shirley Menchaca\.br\Date and Time Signed: 07/21/22 16:55 EDT\.br\Electronically Co-Signed By: Shalini Macias\.br\Date and Time Co-Signed: 07/21/22 09:40 EDT CBC AUTO DIFFon 07-20-2022 BASO # 0.1 103/ul Normal 0.0-0.1 [facility] Comment on above: Performed By: #### C BC #### [facility] [address] [address] [address] Pratibha Stevenson Basophils/100 WBC (Bld) 0.7 % Normal 0.2-2.0 [facility] Comment on above: Performed By: #### C BC #### [facility] [address] [address] [address] Pratibha Stevenson EO # 0.2 103/ul Normal 0.0-0.7 [facility] Comment on above: Performed By: #### C BC #### [facility] [address] [place] [address] Dr. Pratibha Stevenson Eosinophils/100 WBC (Bld) 2.4 % Normal 0.9-7.0 [facility] Comment on above: Performed By: #### C BC #### [facility] [address] [place] [address] Dr. Pratibha Stevenson Erythrocyte distribution width (RBC) [Ratio] 12.4 % Normal 11.0-15.0 [facility] Comment on above: Performed By: #### C BC #### [facility] [address] [place] [address] Dr. Pratibha Stevenson Hematocrit (Bld) [Volume fraction] 45.8 % Normal 42.0-54.0 [facility] Comment on above: Performed By: #### C BC #### [facility] [address] [place] [address] Dr. Pratibha Stevenson Hemoglobin (Bld) [Mass/Vol] 15.6 g/dL Normal 14.0-18.0 [facility] Comment on above: Performed By: #### C BC #### [facility] [address] [place] [address] Dr. Pratibha Stevenson IG # 0.03 10e3/ul Normal 0.00-0.03 [facility] Comment on above: Performed By: #### C BC #### [facility] [address] [place] [address] Dr. Pratibha Stevenson IG % 0.4 % Normal 0.0-0.5 [facility] Comment on above: Performed By: #### C BC #### [facility] [address] [place] [address] Dr. Pratibha Stevenson LYMPH # 3.0 103/ul Normal 1.2-3.8 [facility] Comment on above: Performed By: #### C BC #### [facility] [address] [place] [address] Dr. Pratibha Stevenson Lymphocytes/100 WBC (Bld) 34.7 % Normal 20.5-60.0 [facility] Comment on above: Performed By: #### C BC #### [facility] [address] [place] [address] Dr. Pratibha Stevenson MANUAL DIFF REQ NO Normal [facility] Comment on above: Performed By: #### C BC #### [facility] [address] [place] [address] Dr. Pratibha Stevenson MCH (RBC) [Entitic mass] 31.3 pg Normal 25.9-34.0 [facility] Comment on above: Performed By: #### C BC #### [facility] [address] [place] [address] Dr. Pratibha Stevenson MCHC (RBC) [Mass/Vol] 34.1 g/dL Normal 29.9-35.2 [facility] Comment on above: Performed By: #### C BC #### [facility] [address] [place] [address] Dr. Pratibha Stevenson MCV (RBC) [Entitic vol] 92.0 fL Normal 80.0-94.0 [facility] Comment on above: Performed By: #### C BC #### [facility] [address] [place] [address] Dr. Pratibha Stevenson MONO # 0.5 103/ul Normal 0.3-0.8 [facility] Comment on above: Performed By: #### C BC #### [facility] [address] [place] [address] Dr. Pratibha Stevenson Monocytes/100 WBC (Bld) 5.9 % Normal 1.7-12.0 [facility] Comment on above: Performed By: #### C BC #### [facility] [address] [place] [address] Dr. Pratibha Stevenson NEUT # 4.8 103/ul Normal 1.4-6.5 [facility] Comment on above: Performed By: #### C BC #### [facility] [address] [place] [address] Dr. Pratibha Stevenson Neutrophils/100 WBC (Bld) 55.9 % Normal 43.0-75.0 [facility] Comment on above: Performed By: #### C BC #### [facility] [address], [place] [address] Dr. Pratibha Stevenson Platelet mean volume (Bld) [Entitic vol] 10.0 fL Normal 9.5-13.5 [facility] Comment on above: Performed By: #### C BC #### [facility] [address] [place], [place] [address] Dr. Pratibha Stevenson PLT 243 103/ul Normal 150-450 [facility] Comment on above: Performed By: #### C BC #### [facility] [address] [address] [address] Pratibha Stevenson RBC 4.98 106/ul Normal 4.70-6.10 [facility] Comment on above: Performed By: #### C BC #### [facility] [id number] Pratibha Stevenson WBC 8.5 103/ul Normal 4.0-11.0 [facility] Comment on above: Performed By: #### C BC #### [facility] [id number] Pratibha Stevenson CT ABD/PELVIS WO CONon [...] or hydroureter. Hepatomegaly. Electronically authenticated by: ROSALINO SAID Date: 2022-07-20 04:12 Normal [facility] ER URINE PROFILEon 3 Bilirubin Ql (U) Negative Normal NEGATIVE [facility] Comment on above: Performed By: #### L ACT #### [facility] [address] [address] [address] Pratibha Stevenson Clarity (U) CLEAR Normal CLEAR [facility] Comment on above: Performed By: #### L ACT #### [facility] [address] [address] [address] Pratibha Stevenson Color (U) LT. YELLOW Normal YELLOW [facility] Comment on above: Performed By: #### L ACT #### [facility] [address] [place] [address] Dr. Pratibha RIOS A micrscopic examination will be performed if indicated. Normal [facility] Comment on above: Performed By: #### L ACT #### [facility] [address] [place] [address] Dr. Pratibha Stevenson Glucose Ql (U) Negative Normal NEGATIVE [facility] Comment on above: Performed By: #### L ACT #### [facility] [address] [address] [address] Pratibha Stevenson Hemoglobin Ql (U) Negative Normal NEGATIVE [facility] Comment on above: Performed By: #### L ACT #### [facility] [address] [place] [address] Dr. Pratibha Stevenson Ketones Ql (U) Negative Normal NEGATIVE [facility] Comment on above: Performed By: #### L ACT #### [facility] [address] [place] [address] Dr. Pratibha Stevenson LEUKOCYTES Negative Normal NEGATIVE [facility] Comment on above: Performed By: #### L ACT #### [facility] [address] [place] [address] Dr. Pratibha Stevenson Nitrite Ql (U) Negative Normal NEGATIVE [facility] Comment on above: Performed By: #### L ACT #### [facility] [address] [address] [address] Pratibha Stevenson pH (U) 6.0 [pH] Normal 5-9 [facility] Comment on above: Performed By: #### L ACT #### [facility] [address] [address] [address] Pratibha Stevenson SPEC GRAVITY <=1.005 Abnormal 1.005-<=1.[address] [facility] Comment on above: Performed By: #### L ACT #### [facility] [address] [address] [address] Pratibha Stevenson UA PROTEIN Negative Normal NEGATIVE/ TRACE [facility] Comment on above: Performed By: #### L ACT #### [facility] [address] [address] [address] Pratibha Stevenson UR MICRO IND NOT INDICATED Normal [facility] Comment on above: Performed By: #### L ACT #### [facility] [address] [place] [address] Dr. Pratibha Stevenson Urobilinogen Qn (U) 0.2 {Butch'U}/dL Normal 0.2 - 1. 0 [facility] Comment on above: Performed By: #### L ACT #### [facility] [address] [place] [address] Dr. Pratibha Stevenson LACTATE/LACTIC ACIDon 2022 Lactate [Moles/Vol] 0.8 mmol/L Normal 0.4-2.0 [facility] Comment on above: Performed By: #### L ACT #### [facility] [address] [place] [address] Dr. Pratibha Stevenson PROF 14(COMP METB)on 023 Albumin [Mass/Vol] 4.3 g/dL Normal 3.4-5.[address] [facility] Comment on above: Performed By: #### E RUR #### [facility] [address] [place] [address] Dr. Pratibha Stevenson Albumin/Globulin [Mass ratio] 1.3 {ratio} Normal [facility] Comment on above: Performed By: #### E RUR #### [facility] [address] [address] [address] Pratibha Stevenson ALP [Catalytic activity/Vol] 94 U/L Normal 46-116 [facility] Comment on above: Performed By: #### E RUR #### [facility] [address] [address] [address] Pratibha Stevenson ALT [Catalytic activity/Vol] 23 U/L Normal 16-63 [facility] Comment on above: Performed By: #### E RUR #### [facility] [address] [address] [address] Pratibha Stevenson Anion gap [Moles/Vol] 10.5 mmol/L Normal [facility] Comment on above: Performed By: #### E RUR #### [facility] [address] [address] [address] Pratibha Stevenson AST [Catalytic activity/Vol] 21 U/L Normal 15-37 [facility] Comment on above: Performed By: #### E RUR #### [facility] [address] [address] [address] Pratibha Stevenson Bilirubin [Mass/Vol] 0.5 mg/dL Normal 0.2-1.0 [facility] Comment on above: Performed By: #### E RUR #### [facility] [address] [address] [address] Pratibha Stevenson Calcium [Mass/Vol] 9.3 mg/dL Normal 8.5-10.[address] [facility] Comment on above: Performed By: #### E RUR #### [facility] [address] [address] [address] Pratibha Stevenson Chloride [Moles/Vol] 102 mmol/L Normal 98-107 [facility] Comment on above: Performed By: #### E RUR #### [facility] [address] [address] [address] Pratibha Stevenson CO2 [Moles/Vol] 26.2 mmol/L Normal 21.0-32.0 [facility] Comment on above: Performed By: #### E RUR #### [facility] [address] [address] [address] Pratibha Stevenson Creatinine [Mass/Vol] 1.18 mg/dL Normal 0.70-1.30 [facility] Comment on above: Performed By: #### E RUR #### [facility] [address] [address] [address] Pratibha Stevenson EGFR-AF FRENCH >60 Normal >=60 [facility] Comment on above: Performed By: #### E RUR #### [facility] [address] [address] [address] Pratibha Stevenson EGFR-NON AF FRENCH >60 Normal >=60 [facility] Comment on above: Performed By: #### E RUR #### [facility] [address] [address] [address] Pratibha Stevenson Globulin (S) [Mass/Vol] 3.2 g/dL Normal [facility] Comment on above: Performed By: #### E RUR #### [facility] [address] [address] [address] Pratibha Stevenson Glucose [Mass/Vol] 115 mg/dL Critically high 74-106 [facility] Comment on above: Performed By: #### E RUR #### [facility] [address] [address] [address] Pratibha Stevenson Potassium [Moles/Vol] 3.7 mmol/L Normal 3.5-5.1 [facility] Comment on above: Performed By: #### E RUR #### [facility] [address] [address] [address] Pratibha Stevenson Protein [Mass/Vol] 7.5 g/dL Normal 6.4-8.[address] [facility] Comment on above: Performed By: #### E RUR #### [facility] [address] [address] [address] Pratibha Stevenson Sodium [Moles/Vol] 135 mmol/L Critically low 136-145 [facility] Comment on above: Performed By: #### E RUR #### [facility] [address] [address] [address] Pratibha Stveenson Urea nitrogen [Mass/Vol] 11.0 mg/dL Normal 7.0-18.0 [facility] Comment on above: Performed By: #### E RUR #### [facility] [address] [address] [address] Pratibha Stevenson Urea nitrogen/Creatinine [Mass ratio] 9.3 mg/mg Normal [facility] Comment on above: Performed By: #### E RUR #### [facility] [address] [address] [address] Pratibha Stevenson TROPONIN, HIGH SENSITIVITYon 07-20-2022 HSTROP 5.0 pg/mL Normal 4.0-76.1 [facility] Comment on above: Result Comment: CUT- OFF POINTS HAVE BEEN ESTABLISHED BASED ON THE FOURTH UNIVERSAL DEFINITIONS OF MYOCARDIAL INFARCTION. THE UPPER REFERENCE LIMIT (URL) OF TROPONIN, DEFINED THE 99TH PERCENTILE OF cTnI DISTRIBUTION IN A REFERENCE POPULATION, HAS BEEN CONFIRMED THE DECISION THRESHOLD FOR PR DIAGNOSIS. Performed By: #### E RUR #### [facility] [address] [address] [address] Pratibha Stevenson Formson 07-15-2022 Forms [id number]#1.0 0CD:127 Normal [facility] Screenson 07-15-2022 Screens [id number]#1.0 0CD:127 Normal [facility] Screens [id number]#1.0 0CD:127 Normal [facility] Patient Educationon 07-14-19 Patient Education Urology [...] Rhubarb. ? Beets. ? Potato chips and namibian fries. ? Nuts. ? If you regularly take a diuretic medicine, make sure to eat at least 1?2 fruits or vegetables high in potassium each day. These include: ? Avocado. ? Banana. ? [place], prune, carrot, or tomato juice. ? Baked [...] dr (more content not included)... Normal [facility] Urology Office/Clinic Noteon 07-13-2022 Urology Office/Clinic Note Chief Complaint Pt is here for PO stent removal HPI Staff Ethan is a 31 y.o. male new patient here for [facility] ER follow up. Urology consult done 05/08/22 @ [facility] due to 4-5mm Ureteral Stone. [...] (more content not included)... Normal [facility] Comment on above: Result Comment: Elec tronically Signed By: Shirley Murrell MD\.br\Date and Time Signed: 07/13/22 16:53 EDT\.br\Electronically Co-Signed By: Shalini Macias\.br\Date and Time Co-Signed: 07/13/22 10:29 EDT RAD - MISCon 07-11-2022 RAD - MISC [id number]#1.0 0CD:127 Normal [facility] RAD - Ultrasound Reporton RAD - Ultrasound Report [id number]#1.0 0CD:127 Normal [facility] US KIDNEYSon 07-06-2022 US KIDNEYS EXAMINATION: [...] by: RAMO BLAKE Date: 2022-07-06 11:14 Normal [facility] XR KUB 1 VIEWon 07-06-2022 [...] by: SAUMYA MARSH Date: 2022-07-06 11:57 Normal [facility] Coding Summary.on 05-30-2022 Coding Summary. CD:[id number] Gh 0bWw+PGhlYWQ+BW3NOESvK 97znBFmfN9DB2aSQC5LHNH OMSQYTK3SXB0fzZQ8ZLudZ 2VybiAv OqwpiBHaGH54MLq5HAC3vV dxDVzrwF7zmTOpT4u8SbJl SI32zZ60MEkoANEtXpX1Ux ZpbjsgbWFy P9njIoHnrRPlRcb+PHRhYm xlIHdpZHRoPScxMDAlJyBz cAcgUZ8eXw5bWSYjIHXmsD xhcHNlOiBj c5cnLWLcRPyhSD9llPjwN3 YviDZ4YEWxg8l3Cz39wAX+ HQUzVYV3aTicHRhck473Yf Rqg1umWPW5 qVNmLKrqOVP3Y25yn7X1OY FbLFSwTWZ1oQI2oH6vhSib mepwA3ShuQBxUeR6YEK7wO WevH0czTfs ifcbuW8kOol+B56UGB9IJA UHWS8RJpy9Z1MaOuygrMI+ AA71IPYnCV08zDIlzZTie1 kdqUa4ToWb QUQcJGW3kJkuVUifd0JkOF PjF62khHHmg9E2OQYezRly rJIgFpJlxQM3rE3vERvxlk bwl4fabebm Zponv1noeq88wC79G93cSI cfGONyJFO4DIPnRUUolMux qp9ulP4zAz4+AGhrr8btz8 juoSl6RpKz LFJyiiEkvMnyNQV6h2BlKv 58D1JwjSjys8LwAsl9ha41 jOCve6Q3eJP0ZBddKJQymG 3qVHkvHjK4 MWNyRlRinS88bJFfYSmsAr 7tbPpcbUswRK9rPOKzmzng TFHmhQ0rNTBksTDeiYioGU 4wNTBpbjtm y304LcQdDCE5RJZcrDHtE6 PoqP4pKrEzJLNdSXMpU4Es oUKuHEybG536AAxdEyH5RP MbzwEvP3Ab SFFnyBewTxW8s4F8Qt0Eb0 CimlgvMTP5LEisWBVtOsJn ObNyQyQ4W8BwSnx2WYBuxX lsWU1iA7Um HRAiytlqjzxqiBQ7NAFcMT EuvG80hLHpMSpjRv8pe6W1 l630FTHtCVMzaG58Hj0wyQ ogMTBwdCBU hM5hngfyx6dnulbiWuWoHQ DsFBd4WEl9WOEdbSwiHtFf HKJ6HkI8CXV3qPCzpH0afS vzinpovX8b Oyc+T03bnG4mQQY0TWB0la wjNAQcrhYoLT72JU84J5Lw PjwvdGFibGU+PGRpdiBzdH qtYS3dVkAy f3tah5NvDWuzM6VgYXPdFJ amDeh2XBTkOTC7cYW0uG1b SOGaXFgzs8H1vVF0P6Fvax Evos7yr2di NMYdYNcnI61wyWYmr2C1KR QqvKG8MIWauLpbKhZroV28 Oyc+CVFozHyca2DiDpvqs0 ciw8wuxRp0 WlPcDHDvmbLmoXypCFY2j9 DhFn90B84hQIsdZLQnLUDz UQQiXLKhrYxric3jzQ9ySd 8+PGNvbCB3 mRD3iK7dLUKmKeG6PWttH7 91KtRsxEDdBujvj5xjc7do rTu4GzYrIEZucxGlxGmdNF R6a5JwYs55 R35gIEziTTYuBUJqYLQnDH TyuZxmrh0vpR1eGw6+PC9j l1mfho67pJ89cJX+PHRkIH Q2nDpvITps FKPgsB0qTLioCqJ8QTJkOx GfgL10lHFcMHekOz9ufAmo hRwrLS0dKSUsdhufd318Zi Ypm6nkTPXk iXNqHGqaSZZ7A54el0A2JA EyQDEkUKO3uJW4qW9hyQir bjogbGVmdDsgdmVydGljYW diNJsdB650 IHRvcDsnPlBhdGllbnQgTm MwRHc0H5JlCom5QFNxkPqu GY4upPGmDVvfUv8ziJwmjP boEU9fKIVg pmvow502FoRht7ixZDLuhB ZpEPasAIP1Z92yl6L2JADr PYHnYQO2aDR3oK9pzPjsbg ogbGVmdDsg ceHodFaoWQnbJUnpR533EO RvcDsnPkJpcnRoIERhdGU6 WW26DM07iAKrm2P6iUX4U3 BhZGRpbmct bejusRY5ITHjIQAlmS01Gj 6siHtnSl8kXOFqDQL8SPPe zFSnL4ShiV8nYeOqWRMqJV VwE9AapTIo ALfnM264KPscEiW6QDKwpv LyC9ExDVIjwZgjMwD7k6S9 Sx4DF8A9JK39ZJ27xKMlz4 M9oOM0D1Uy RKYklsmcnlpkmFL8QULjQY MiwY74Xj2qiMbnLy4fFYHk HZZ2ROMpuSXmK8CwpD9mHv AjMDAwMDAw T5EabVRyQBsxB039YGtdJf X9YNWemrNqQ5YcXFXosVkx SfA7h4Z8Bh3NNUz5LQ93RK 60pRQfw5W0 kKF5J1QxLSNmdifgwykeyW K7SNRrOTUznV37Us9utTrk Yt6pBZYzFRD1UHEjmJXfH8 SymP3rEqFf AAFxZJLlZ0GdcBWoBBllX4 09DOhhRkY8MZSdvvYvB7Bf YXDrjRyyQjG6c1E3Rr2ESU BiAE90QZP3 qQA4ZB93GV22A7MuEkragN FibGU+PHRhYmxlIHdpZHRo UFdpVJTsYyAvrRqrZS0cTi 9yZGVyLWNv vUzexETfIhJtx7grQRNjNF yoKC3xrCndY4GhgYJ6NCWz g8i6Du82Q72sR3BdhHD+PG TgiIL8cFZ3 yP7cZfDzWsV4BFquB072Bx ZfzLNzYdpbq2umw2qnpPq2 EeD5SLWvveSnsJfaFOR0e1 DsZr68M10o IHdpZHRoPSIxNSUiIHZhbG ogie1cvD8oIe0+PGNvbCB3 mID2cL2fVpCxRfE3VZyvS7 49InRvcCIv Mjkas3qab2jivFf6VkLaOB DxhaXqwDqpSSM0p9YfQl32 H1JzuGspo9VeHva9jj13zV Bbs3Z4jOT0 R1SfENYzpjebuSXgjCudSB 6vIYJhfxocKLDavC2gLCIz K8w5DcJqLcZ3GGumG7Xhyb E0ZAZlyKZg AAavCSH8I65eg2K0IPTbKI LuUED6tUW8cW2ibTpvfcus bGVmdDsgdmVydGljYWwtYW luS274PBBm eKicRDBotM4cLFCzwBSpuX wgVG9sPLExxaylZhCYNKPR HbqgCWVOE08uQSxlzUI+PH FaMVP5jMbw ATndRIZclL2oRFQpJ1h1Ax CpEoR9WHlhG0OdHVJpkslq Ob38qY5lNoIeJzC5XXugO6 SzvkQ9PFTt hOAsMKnrVVV0S15ys9K5GD BiJRHmTWN0sLB5pJ7clOjy bjogbGVmdDsgdmVydGljYW lyRTpkW304 FNZpiTgfUgZ4IbD5LrJ3LO P0K6OoZjn8JTPcgKeaOI9o nDRoPJiaGa3xlWxprOagQZ 4wNTBpbjtw BFAvrS1uAVPugSEgtCnjEV 1pMBLripuqu308JvRxGUD9 DARxzSOcF5PmpL5pKzCiYH OkESVgM1La tTXpLTkcC109GDpxLmA7TO PafeWxS6TyJEKatKlgMmK3 o0V1Pt0rPOCVVRHbokppqP Q+PHRkIHN0 nGueCOqfFAQfgO0nRZEyF5 e3WtPbFuE4MAnuW2AwSNOc jnsrJp19pF1zTuTsSnP7GC opF2CaurS4 ZGKzyJPwCCopPDX7N57pn1 U5HCLgBDWrGGT4tFV8iA6p bGlnbjogbGVmdDsgdmVydG ljYWwtYWxp W197HUEjlFxxPb8glGR0O4 QpSsr1XSTcjBqqTK1mcLDo RMlsIk3zcMtpyTllXQ5dZN BpbjtwYWRk dW9kXLHhcLLdwNriLF4iUK Pzwizut196PvYjGRR4HPQh eLNjZ4AoqL3wHlAbXNEaYR GsI1GsbEXw DMbvA399TEbmNjY9QSJtlb CmB2YsFFLmhBhgYxT5r3M2 Pe0JfROdAOTpCQ86ZR69CE 02W0QrLues dGFibGU+PHRhYmxlIHdpZH NoQSgxIDJwDlDsoZusTT1o Xg9oLVGcSSLflBoexVHeNt Ide7egMMLz FXmpDI7xqQmpG1OmmAF2IA Ebw3t5Xu47O30iW7AcgQN+ DWQyxGH3uQE1sT1uRdGsGi M8SXqgR775 DwQmfXVbWjnak9dmx0crhI c7SqGsVXIroaIkvJmjAZJ7 d6UnJp64E62cBIcnKKFrKS IyMCUiIHZh eHoctk9cuZ1mGa4+PGNvbC O8bLZ8yE5nYwGqXtA2WImg S114XlRlxMOcJyaxY75aW8 JvdXA+PHRy Plf3LNIrlApwDS6xkPWpLC hjPa1pJYS5CkKbRbQvSUhl Y9AwUCIhbdzgrjutrOX9TT GaLJSlvH15 Oc8nuUfyPd3aGHZgZGD4BV CmuHDtX2PwkV6iAwSvIWRx CJXcQ3HinUPwURgyF057LV qkUmA2KDWf zoEyD7XeFUYkmGlsLkH9t5 E4Zw4FlOslkIEhBM5qJeZb NCx8S2BsMss4OPCpkAxwRJ 0ncGFkZGlu Xq8phNmapKgtZJ8tHRKxqa gsj587MgVaq5rdFBMttRNm RQhcBBV7G85zq0P3OZDlBU NzIDV0dYZ9 wJ9lnSdkdrsykFTkuIqebm ZhkDecZQnnZNdrQ978WGIr yWtvExSWJkr2H8OfEov6BW AknRlhND4l qUOlDRudFn8fkGbpeOctWG 2kBQViyzina722AkEzo0cj BMRqbYYhYNicEHN0I33rb5 U3VSSySAXz VSJ2mPO3tU3ntFsfczhhvN VmdDsgdmVydGljYWwtYWxp D287ADCwyLayRm5EMnu4E0 XbJfq6ATVn sTkqUZ4zeOQxYTyzWw1cbJ yhwEndZS1fMTJszkhsg167 XqRpa1mtUXXxvQEyCJcfMJ Z0V51cs9D0 EBElGKLaUHG2xPC3xF1yiQ lnbjogbGVmdDsgdmVydGlj DWkiSWeyD013RNLwmLajXs BheWVyOjwv dGQ+BU59qz94N2LvTuebMl r1OSSsDMY9hMR2zE4zVIEj KXrec8E2wLV3T6GksnOgss 0ta2zyMYZm ZTog (more content not included)... Normal [facility] Operative Reporton 3 Operative Report Patient: AUDREY DONALD Age: 31 years Sex: Male : 1990 Associated Diagnoses: None Author: Handy WILEY, Shirley Menchaca Procedure Operative Information Details: Date/ Time: 05/23/2022 10:00:00. Pre-Op Dx: Kidney stone (DIS34-BD N20.0, Billing Diagnosis, Medical), Foreign Body in [...] labs and 24-hour urine . [facility] Comment on above: Result Comment: Elec tronically Signed By: Handy WILEY, Shirley Menchaca\.br\Date and Time Signed: 05/27/22 17:07 EST Consent for Procedure/Surger yon 05-26-2022 Consent for Procedure/Surgery [id number]#1.0 0CD:[address] [facility] IntraOperative Documentson 0 05-26-2022 IntraOperative Documents [id number]#1.0 0CD:[address] [facility] Formson 05-24-2022 Forms [id number]#1.0 0CD:[address] [facility] Consent for Treatmenton 05-02 Consent for Treatment [id number]#1.0 0CD:[address] [facility] Main OR Intraoperative Recor don 05-23-2022 Main OR Intraoperative Record IntraOp Document Type FTURO Summary Primary Physician: Shirley Murrell MD Finalized Date/Time: 05/23/22 10:14:49 Pt. Name: ETHAN DONALD /Sex: 1990 Male Med Rec #: [id number] Physician: Shirley Murrell MD Financial #: [id number] Pt. Type: O Room/Bed: / Admit/Disch: 05/23/22 08:41:51 - Institution: Case Times FTURO Entry 1 Patient Times In Room 05/23/22 10:05:00 Out Room 05/23/22 10:21:00 Procedure Times Start 05/23/22 10:11:00 Stop 05/23/22 10:16:00 Anesthesia Times Last Modified By: Yumi CAMARILLO, Marlyn RIVERA 05/23/22 10:14:32 Case Attendance FTURO Entry 1 Entry 2 Entry 3 Case Attendee Shirley Murrell MD RN, MICHELLEOR, Leandra REYES, Nereida Cline Role Performed Surgeon - Primary Channel Opener - Primary Scrub - Primary Time In 05/23/22 10:05:00 05/23/22 10:05:00 05/23/22 10:05:00 Time Out 05/23/22 10:21:00 05/23/22 10:21:00 05/23/22 10:21:00 Procedure CYSTOSCOPY LOCAL WITH CYSTOSCOPY LOCAL WITH CYSTOSCOPY LOCAL WITH STENT REMOVAL(Left) STENT REMOVAL(Left) STENT REMOVAL(Left) Comments Last Modified By: Yumi CAMARILLO, MICHELLEOR, Yumi CAMARILLO, MICHELLEOR, Yumi CAMARILLO, MICHELLEOR, Marlyn [...] - Clean-Contaminated Last Modified By: Yumi CAMARILLO, MICHELLEORMarlyn 05/23/22 10:14:34 General Case Data FTURO Pre-Care [...] RN, Ruthann 05/23/22 10:14 Normal [facility] Main OR Preoperative Recordo n 05-23-2022 Main OR Preoperative Record Holding Area Document Type FTURO Summary Primary Physician: Shirley Murrell MD Finalized Date/Time: 05/23/22 10:11:23 Pt. Name: ETHAN DONALD Hannah RogersB./Sex: 1990 Male Med Rec #: [id number] Physician: Shirley Murrell MD Financial #: [id number] Pt. Type: O Room/Bed: / Admit/Disch: 05/23/22 [...] Comment: difficulty voiding, not Skin Integrity Intact, [place], Warm, & feeling empty, pain in Dry scrotal area SEVERE 7 Constant, denies swelling Vitals - EU Blood Pressure 111/74 Pulse 63 bpm Respirations 16 br/min SPO2 96 % RN Reviewed Yes Last Modified By: NICOLE Eason RN, Ruthann 05/23/22 10:11:21 General Comments: remp:36.1 Finalized By: NICOLE Eason RN, Ruthann Document Signatures Signed By: Shannon Tapia LPN 05/23/22 09:28 Yumi CAMARILLO Marlyn RIVERA 05/23/22 10:11 Normal [facility] Insurance Correspondence Off iceon 05-17-2022 Insurance Correspondence Office [id number]#1. 00CD:127 Normal [facility] ED Note-Physicianon 05-14-19 ED Note-Physician [id number]#1.0 0CD:127 Normal [facility] RAD - CT Reporton 05-14-[address] RAD - CT Report [id number]#1. 00CD:127 Normal [facility] RAD - CT Report [id number]#1. 00CD:127 Normal [facility] RAD - MISCon 05-14-2022 RAD - MISC [id number]#1. 00CD:127 Normal [facility] RAD - MISC [id number]#1. 00CD:127 Normal [facility] RAD - MISC [id number]#1. 00CD:127 Normal [facility] RAD - Ultrasound Reporton RAD - Ultrasound Report [id number]#1. 00CD:127 Normal [facility] AMYLASEon 05-12-2022 Amylase [Catalytic activity/Vol] 39 U/L Normal 25-115 [facility] Comment on above: Performed By: #### E RUR #### [facility] [address] [place] [address] Dr. Pratibha Stevenson CBC AUTO DIFFon 05-12-2022 BASO # 0.0 103/ul Normal 0.0-0.1 [facility] Comment on above: Performed By: #### L ACT #### [facility] [address] [place] [address] Dr. Pratibha Stevenson Basophils/100 WBC (Bld) 0.2 % Normal 0.2-2.0 [facility] Comment on above: Performed By: #### L ACT #### [facility] [address] [place] [address] Dr. Pratibha Stevenson EO # 0.0 103/ul Normal 0.0-0.7 [facility] Comment on above: Performed By: #### L ACT #### [facility] [address] [place] [address] Dr. Pratibha Stevenson Eosinophils/100 WBC (Bld) 0.0 % Critically low 0.9-7.0 [facility] Comment on above: Performed By: #### L ACT #### [facility] [address] [place] [address] Dr. Pratibha Stevenson Erythrocyte distribution width (RBC) [Ratio] 11.7 % Normal 11.0-15.0 [facility] Comment on above: Performed By: #### L ACT #### [facility] [address] [place] [address] Dr. Pratibha Stevenson Hematocrit (Bld) [Volume fraction] 43.0 % Normal 42.0-54.0 [facility] Comment on above: Performed By: #### L ACT #### [facility] [address] [place] [address] Dr. Pratibha Stevenson Hemoglobin (Bld) [Mass/Vol] 13.9 g/dL Critically low 14.0-18.0 [facility] Comment on above: Performed By: #### L ACT #### [facility] [address] [place] [address] Dr. Pratibha Stevenson IG # 0.03 10e3/ul Normal 0.00-0.03 [facility] Comment on above: Performed By: #### L ACT #### [facility] [address] [place] [address] Dr. Pratibha Stevenson IG % 0.3 % Normal 0.0-0.5 [facility] Comment on above: Performed By: #### L ACT #### [facility] [address] [place] [address] Dr. Pratibha Stevenson LYMPH # 0.8 103/ul Critically low 1.2-3.8 [facility] Comment on above: Performed By: #### L ACT #### [facility] [address] [place] [address] Dr. Pratibha Stevenson Lymphocytes/100 WBC (Bld) 8.6 % Critically low 20.5-60.0 [facility] Comment on above: Performed By: #### L ACT #### [facility] [address] [place] [address] Dr. Pratibha Stevenson MANUAL DIFF REQ NO Normal [facility] Comment on above: Performed By: #### L ACT #### [facility] [address] [place] [address] Dr. Pratibha Stevenson MCH (RBC) [Entitic mass] 31.0 pg Normal 25.9-34.0 [facility] Comment on above: Performed By: #### L ACT #### [facility] [address] [place] [address] Dr. Pratibha Stevenson MCHC (RBC) [Mass/Vol] 32.3 g/dL Normal 29.9-35.2 [facility] Comment on above: Performed By: #### L ACT #### [facility] [address] [place] [address] Dr. Pratibha Stevenson MCV (RBC) [Entitic vol] 96.0 fL Critically high 80.0-94.0 [facility] Comment on above: Performed By: #### L ACT #### [facility] [address] [place] [address] Dr. Pratibha Stevenson MONO # 0.4 103/ul Normal 0.3-0.8 [facility] Comment on above: Performed By: #### L ACT #### [facility] [address] [place] [address] Dr. Pratibha Stevenson Monocytes/100 WBC (Bld) 4.5 % Normal 1.7-12.0 [facility] Comment on above: Performed By: #### L ACT #### [facility] [address] [place] [address] Dr. Pratibha Stevenson NEUT # 8.4 103/ul Critically high 1.4-6.5 [facility] Comment on above: Performed By: #### L ACT #### [facility] [address] [place] [address] Dr. Pratibha Stevenson Neutrophils/100 WBC (Bld) 86.4 % Critically high 43.0-75.0 [facility] Comment on above: Performed By: #### L ACT #### [facility] [address] [place] [address] Dr. Pratibha Stevenson Platelet mean volume (Bld) [Entitic vol] 10.6 fL Normal 9.5-13.5 [facility] Comment on above: Performed By: #### L ACT #### [facility] [address] [place] [address] Dr. Pratibha Stevenson PLT 227 103/ul Normal 150-450 [facility] Comment on above: Performed By: #### L ACT #### [facility] [address] [place] [address] Dr. Pratibha Stevenson RBC 4.48 106/ul Critically low 4.70-6.10 [facility] Comment on above: Performed By: #### L ACT #### [facility] [address] [place] [address] Dr. Pratibha Stevenson WBC 9.7 103/ul Normal 4.0-11.0 [facility] Comment on above: Performed By: #### L ACT #### [facility] [address] [place] [address] Dr. Pratibha Stevenson Consent for Procedure/Surger yon 05-12-2022 Consent for Procedure/Surgery [id number] 0CD:127 Normal [facility] LIPASEon 05-12-2022 Lipase [Catalytic activity/Vol] 110.0 U/L Normal 73.0-393.0 [facility] Comment on above: Performed By: #### E RUR #### [facility] [address] [place] [address] Dr. Pratibha Stevenson Operative Reporton 3 Operative Report [id number] 0CD:127 Normal [facility] Operative Report [id number] 0CD:127 Normal [facility] Comment on above: Other Comment: SAMMI PATHAK PAGES PROF 14(COMP METB)on 023 Albumin [Mass/Vol] 3.3 g/dL Critically low 3.4-5.0 [facility] Comment on above: Performed By: #### E RUR #### [facility] [address] [place] [address] Dr. Pratibha Stevenson Albumin/Globulin [Mass ratio] 1.2 {ratio} Normal [facility] Comment on above: Performed By: #### E RUR #### [facility] [address] [place] [address] Dr. Pratibha Stevenson ALP [Catalytic activity/Vol] 68 U/L Normal 46-116 [facility] Comment on above: Performed By: #### E RUR #### [facility] [address] [place] [address] Dr. Pratibha Stevenson ALT [Catalytic activity/Vol] 27 U/L Normal 16-63 [facility] Comment on above: Performed By: #### E RUR #### [facility] [address] [place] [address] Dr. Pratibha Stevenson Anion gap [Moles/Vol] 10.4 mmol/L Normal [facility] Comment on above: Performed By: #### E RUR #### [facility] [address] [place] [address] Dr. Pratibha Stevenson AST [Catalytic activity/Vol] 25 U/L Normal 15-37 [facility] Comment on above: Performed By: #### E RUR #### [facility] [address] [place] [address] Dr. Pratibha Stevenson Bilirubin [Mass/Vol] 0.5 mg/dL Normal 0.2-1.0 [facility] Comment on above: Performed By: #### E RUR #### [facility] [address] [place] [address] Dr. Pratibha Stevenson Calcium [Mass/Vol] 8.8 mg/dL Normal 8.5-10.[address] [facility] Comment on above: Performed By: #### E RUR #### [facility] [address] [place] [address] Dr. Pratibha Stevenson Chloride [Moles/Vol] 105 mmol/L Normal 98-107 [facility] Comment on above: Performed By: #### E RUR #### [facility] [address] [place] [address] Dr. Pratibha Stevenson CO2 [Moles/Vol] 26.5 mmol/L Normal 21.0-32.0 [facility] Comment on above: Performed By: #### E RUR #### [facility] [address] [place] [address] Dr. Pratibha Stevenson Creatinine [Mass/Vol] 1.15 mg/dL Normal 0.70-1.30 [facility] Comment on above: Performed By: #### E RUR #### [facility] [address] [place] [address] Dr. Pratibha Stevenson EGFR-AF FRENCH >60 Normal >=60 [facility] Comment on above: Performed By: #### E RUR #### [facility] [address] [place] [address] Dr. Pratibha Stevenson EGFR-NON AF FRENCH >60 Normal >=60 [facility] Comment on above: Performed By: #### E RUR #### [facility] [address] [place] [address] Dr. Pratibha Stevenson Globulin (S) [Mass/Vol] 2.7 g/dL Normal [facility] Comment on above: Performed By: #### E RUR #### [facility] [address] [place] [address] Dr. Pratibha Stevenson Glucose [Mass/Vol] 119 mg/dL Critically high 74-106 [facility] Comment on above: Performed By: #### E RUR #### [facility] [address] [place] [address] Dr. Pratibha Stevenson Potassium [Moles/Vol] 3.9 mmol/L Normal 3.5-5.1 [facility] Comment on above: Performed By: #### E RUR #### [facility] [address] [place] [address] Dr. Pratibha Stevenson Protein [Mass/Vol] 6.0 g/dL Critically low 6.4-8.2 [facility] Comment on above: Performed By: #### E RUR #### [facility] [address] [place] [address] Dr. Pratibha Stevenson Sodium [Moles/Vol] 138 mmol/L Normal 136-[address] [facility] Comment on above: Performed By: #### E RUR #### [facility] [address] [place] [address] Dr. Pratibha Stevenson Urea nitrogen [Mass/Vol] 7.0 mg/dL Normal 7.0-18.0 [facility] Comment on above: Performed By: #### E RUR #### [facility] [address] [place] [address] Dr. Pratibha Stevenson Urea nitrogen/Creatinine [Mass ratio] 6.1 mg/mg Normal [facility] Comment on above: Performed By: #### E RUR #### [facility] [address] [place] [address] Dr. Pratibha Stevenson XR KUB 1 VIEWon [...] ROSALINO VIDALES Date: 2022-05-12 06:43 Normal [facility] AMYLASEon 05-11-2022 Amylase [Catalytic activity/Vol] 52 U/L Normal 25-115 [facility] Comment on above: Performed By: #### C MP, GREG, LIPA #### [facility] [address] [place] [address] Dr. Pratibha Stevenson CBC AUTO DIFFon 05-11-2022 BASO # 0.0 103/ul Normal 0.0-0.1 [facility] Comment on above: Performed By: #### C BC #### [facility] [address] [place] [address] Dr. Pratibha Stevenson Basophils/100 WBC (Bld) 0.6 % Normal 0.2-2.0 [facility] Comment on above: Performed By: #### C BC #### [facility] [address] [place] [address] Dr. Pratibha Stevenson EO # 0.2 103/ul Normal 0.0-0.7 [facility] Comment on above: Performed By: #### C BC #### [facility] [address] [place] [address] Dr. Pratibha Stevenson Eosinophils/100 WBC (Bld) 2.3 % Normal 0.9-7.0 [facility] Comment on above: Performed By: #### C BC #### [facility] [address] [place] [address] Dr. Pratibha Stevenson Erythrocyte distribution width (RBC) [Ratio] 11.7 % Normal 11.0-15.0 [facility] Comment on above: Performed By: #### C BC #### [facility] [address] [place] [address] Dr. Pratibha Stevenson Hematocrit (Bld) [Volume fraction] 42.4 % Normal 42.0-54.0 [facility] Comment on above: Performed By: #### C BC #### [facility] [address] [place] [address] Dr. Pratibha Stevenson Hemoglobin (Bld) [Mass/Vol] 14.3 g/dL Normal 14.0-18.0 [facility] Comment on above: Performed By: #### C BC #### [facility] [address] [place] [address] Dr. Pratibha Stevenson IG # 0.01 10e3/ul Normal 0.00-0.03 [facility] Comment on above: Performed By: #### C BC #### [facility] [address] [place] [address] Dr. Pratibha Stevenson IG % 0.2 % Normal 0.0-0.5 [facility] Comment on above: Performed By: #### C BC #### [facility] [address] [place] [address] Dr. Pratibha Stevenson LYMPH # 2.8 103/ul Normal 1.2-3.8 [facility] Comment on above: Performed By: #### C BC #### [facility] [address] [place] [address] Dr. Pratibha Stevenson Lymphocytes/100 WBC (Bld) 41.8 % Normal 20.5-60.0 [facility] Comment on above: Performed By: #### C BC #### [facility] [address] [place] [address] Dr. Pratibha Stevenson MANUAL DIFF REQ NO Normal [facility] Comment on above: Performed By: #### C BC #### [facility] [address] [place] [address] Dr. Pratibha Stevenson MCH (RBC) [Entitic mass] 31.0 pg Normal 25.9-34.0 [facility] Comment on above: Performed By: #### C BC #### [facility] [address] [place] [address] Dr. Pratibha Stevenson MCHC (RBC) [Mass/Vol] 33.7 g/dL Normal 29.9-35.2 [facility] Comment on above: Performed By: #### C BC #### [facility] [address] [place] [address] Dr. Pratibha Stevenson MCV (RBC) [Entitic vol] 92.0 fL Normal 80.0-94.0 [facility] Comment on above: Performed By: #### C BC #### [facility] [address] [place] [address] Dr. Pratibha Stevenson MONO # 0.5 103/ul Normal 0.3-0.8 [facility] Comment on above: Performed By: #### C BC #### [facility] [address] [address] [address] Pratibha Stevenson Monocytes/100 WBC (Bld) 7.9 % Normal 1.7-12.0 [facility] Comment on above: Performed By: #### C BC #### [facility] [address] [address] [address] Pratibha Stevenson NEUT # 3.1 103/ul Normal 1.4-6.5 [facility] Comment on above: Performed By: #### C BC #### [facility] [address] [address] [address] Pratibha Stevenson Neutrophils/100 WBC (Bld) 47.2 % Normal 43.0-75.0 [facility] Comment on above: Performed By: #### C BC #### [facility] [address] [place] [address] Dr. Pratibha Stevenson Platelet mean volume (Bld) [Entitic vol] 10.7 fL Normal 9.5-13.5 [facility] Comment on above: Performed By: #### C BC #### [facility] [address] [address] [address] Pratibha Stevenson PLT 216 103/ul Normal 150-450 [facility] Comment on above: Performed By: #### C BC #### [facility] [address] [address] [address] Pratibha Stevenson RBC 4.61 106/ul Critically low 4.70-6.[address] [facility] Comment on above: Performed By: #### C BC #### [facility] [address] [address] [address] Pratibha Stevenson WBC 6.6 103/ul Normal 4.0-11.0 [facility] Comment on above: Performed By: #### C BC #### [facility] [address] [address] [address] ABD/PELVIS WO CONon [...] SAUMYA MARSH Date: 2022-05-11 08:31 Normal [facility] LIPASEon 05-11-2022 Lipase [Catalytic activity/Vol] 241.0 U/L Normal 73.0-393.0 [facility] Comment on above: Performed By: #### C GREG NGUYEN LIPA #### [facility] [address] [address] [address] Pratibha Stevenson PROF 14(COMP METB)on 023 Albumin [Mass/Vol] 3.6 g/dL Normal 3.4-5.[address] [facility] Comment on above: Performed By: #### C MP, GREG, LIPA #### [facility] [address] [address] [address] Pratibha Stevenson Albumin/Globulin [Mass ratio] 1.2 {ratio} Normal [facility] Comment on above: Performed By: #### C MP, GREG, LIPA #### [facility] [address] [address] [address] Pratibha Stevenson ALP [Catalytic activity/Vol] 75 U/L Normal 46-116 [facility] Comment on above: Performed By: #### C MP, GREG, LIPA #### [facility] [address] [address] [address] Pratibha Stevenson ALT [Catalytic activity/Vol] 28 U/L Normal 16-63 [facility] Comment on above: Performed By: #### C WENDY GREG, LIPA #### [facility] [address] [place] [address] Dr. Pratibha Stevenson Anion gap [Moles/Vol] 9.7 mmol/L Normal [facility] Comment on above: Performed By: #### C MP GREG, LIPA #### [facility] [address] [place] [address] Dr. Pratibha Stevenson AST [Catalytic activity/Vol] 19 U/L Normal 15-37 [facility] Comment on above: Performed By: #### C WENDY, GREG, LIPA #### [facility] [address] [place] [address] Dr. Pratibha Stevenson Bilirubin [Mass/Vol] 0.5 mg/dL Normal 0.2-1.0 [facility] Comment on above: Performed By: #### C MP, GREG, LIPA #### [facility] [address] [address] [address] Pratibha Stevenson Calcium [Mass/Vol] 9.1 mg/dL Normal 8.5-10.[address] [facility] Comment on above: Performed By: #### C MP, GREG, LIPA #### [facility] [address] [address] [address] Pratibha Stevenson Chloride [Moles/Vol] 104 mmol/L Normal 98-107 [facility] Comment on above: Performed By: #### C MP, GREG, LIPA #### [facility] [address] [address] [address] Pratibha Stevenson CO2 [Moles/Vol] 29.3 mmol/L Normal 21.0-32.0 [facility] Comment on above: Performed By: #### C MP, GREG, LIPA #### [facility] [address] [address] [address] Pratibha Stevenson Creatinine [Mass/Vol] 1.21 mg/dL Normal 0.70-1.30 [facility] Comment on above: Performed By: #### C MP, GREG, LIPA #### [facility] [address] [address] [address] Pratibha Stevenson EGFR-AF FRENCH >60 Normal >=60 [facility] Comment on above: Performed By: #### C MP, GREG, LIPA #### [facility] [address] [address] [address] Pratibha Stevenson EGFR-NON AF FRENCH >60 Normal >=60 [facility] Comment on above: Performed By: #### C MP, GREG, LIPA #### [facility] [address] [address] [address] Pratibha Stevenson Globulin (S) [Mass/Vol] 3.1 g/dL Normal [facility] Comment on above: Performed By: #### C MP, GREG, LIPA #### [facility] [address] [address] [address] Pratibha Stevenson Glucose [Mass/Vol] 88 mg/dL Normal 74-[address] [facility] Comment on above: Performed By: #### C MP, GREG, LIPA #### [facility] [address] [address] [address] Pratibha Stevenson Potassium [Moles/Vol] 4.0 mmol/L Normal 3.5-5.1 [facility] Comment on above: Performed By: #### C MP, GREG, LIPA #### [facility] [address] [address] [address] Pratibha Stevenson Protein [Mass/Vol] 6.7 g/dL Normal 6.4-8.[address] [facility] Comment on above: Performed By: #### C GREG NGUYEN, LIPA #### [facility] [address] [address] [address] Pratibha Stevenson Sodium [Moles/Vol] 139 mmol/L Normal 136-[address] [facility] Comment on above: Performed By: #### C GREG NGUYEN LIPA #### [facility] [address] [address] [address] Pratibha Stevenson Urea nitrogen [Mass/Vol] 8.0 mg/dL Normal 7.0-18.0 [facility] Comment on above: Performed By: #### C GREG NGUYEN LIPA #### [facility] [address] [address] [address] Pratibha Stevenson Urea nitrogen/Creatinine [Mass ratio] 6.6 mg/mg Normal [facility] Comment on above: Performed By: #### C GREG NGUYEN LIPA #### [facility] [address] [address] [address] Pratibha Stevenson XR KUB 1 VIEWon [...] MAUREEN GARDNER Date: 2022-05-11 06:36 Normal [facility] AMYLASEon 05-10-2022 Amylase [Catalytic activity/Vol] 41 U/L Normal 25-115 [facility] Comment on above: Performed By: #### L ACT #### [facility] [address] [place] [address] Dr. Pratibha Stevenson CBC AUTO DIFFon 05-10-2022 BASO # 0.0 103/ul Normal 0.0-0.1 [facility] Comment on above: Performed By: #### L ACT #### [facility] [address] [address] [address] Pratibha Stevenson Basophils/100 WBC (Bld) 0.7 % Normal 0.2-2.0 [facility] Comment on above: Performed By: #### L ACT #### [facility] [address] [place] [address] Dr. Pratibha Stevenson EO # 0.2 103/ul Normal 0.0-0.7 [facility] Comment on above: Performed By: #### L ACT #### [facility] [address] [place] [address] Dr. Pratibha Stevenson Eosinophils/100 WBC (Bld) 2.8 % Normal 0.9-7.0 [facility] Comment on above: Performed By: #### L ACT #### [facility] [address] [place] [address] Dr. Pratibha Stevenson Erythrocyte distribution width (RBC) [Ratio] 11.8 % Normal 11.0-15.0 [facility] Comment on above: Performed By: #### L ACT #### [facility] [address] [place] [address] Dr. Pratibha Stevenson Hematocrit (Bld) [Volume fraction] 38.8 % Critically low 42.0-54.0 [facility] Comment on above: Performed By: #### L ACT #### [facility] [address] [place] [address] Dr. Pratibha Stevenson Hemoglobin (Bld) [Mass/Vol] 13.3 g/dL Critically low 14.0-18.0 [facility] Comment on above: Performed By: #### L ACT #### [facility] [address] [place] [address] Dr. Pratibha Stevenson IG # 0.02 10e3/ul Normal 0.00-0.03 [facility] Comment on above: Performed By: #### L ACT #### [facility] [address] [place] [address] Dr. Pratibha Stevenson IG % 0.3 % Normal 0.0-0.5 [facility] Comment on above: Performed By: #### L ACT #### [facility] [address] [address] [address] Pratibha Stevenson LYMPH # 2.1 103/ul Normal 1.2-3.8 [facility] Comment on above: Performed By: #### L ACT #### [facility] [address] [place] [address] Dr. Pratibha Stevenson Lymphocytes/100 WBC (Bld) 35.3 % Normal 20.5-60.0 [facility] Comment on above: Performed By: #### L ACT #### [facility] [address] [place] [address] Dr. Pratibha Stevenson MANUAL DIFF REQ NO Normal [facility] Comment on above: Performed By: #### L ACT #### [facility] [address] [place] [address] Dr. Pratibha Stevenson MCH (RBC) [Entitic mass] 30.7 pg Normal 25.9-34.0 [facility] Comment on above: Performed By: #### L ACT #### [facility] [address] [place] [address] Dr. Pratibha Stevenson MCHC (RBC) [Mass/Vol] 34.3 g/dL Normal 29.9-35.2 [facility] Comment on above: Performed By: #### L ACT #### [facility] [address] [place] [address] Dr. Pratibha Stevenson MCV (RBC) [Entitic vol] 89.6 fL Normal 80.0-94.0 [facility] Comment on above: Performed By: #### L ACT #### [facility] [address] [place] [address] Dr. Pratibha Stevenson MONO # 0.4 103/ul Normal 0.3-0.8 [facility] Comment on above: Performed By: #### L ACT #### [facility] [address] [place] [address] Dr. Pratibha Stevenson Monocytes/100 WBC (Bld) 7.4 % Normal 1.7-12.0 [facility] Comment on above: Performed By: #### L ACT #### [facility] [address] [place] [address] Dr. Pratibha Stevenson NEUT # 3.1 103/ul Normal 1.4-6.5 [facility] Comment on above: Performed By: #### L ACT #### [facility] [address] [place] [address] Dr. Pratibha Stevenson Neutrophils/100 WBC (Bld) 53.5 % Normal 43.0-75.0 [facility] Comment on above: Performed By: #### L ACT #### [facility] [address] [place] [address] Dr. Pratibha Stevenson Platelet mean volume (Bld) [Entitic vol] 10.2 fL Normal 9.5-13.5 [facility] Comment on above: Performed By: #### L ACT #### [facility] [address] [place] [address] Dr. Pratibha Stevenson PLT 197 103/ul Normal 150-450 [facility] Comment on above: Performed By: #### L ACT #### [facility] [address] [place] [address] Dr. Pratibha Stevenson RBC 4.33 106/ul Critically low 4.70-6.10 [facility] Comment on above: Performed By: #### L ACT #### [facility] [address] [place] [address] Dr. Pratibha Stevenson WBC 5.8 103/ul Normal 4.0-11.0 [facility] Comment on above: Performed By: #### L ACT #### [facility] [address] [place] [address] Dr. Pratibha Stevenson LIPASEon 05-10-2022 Lipase [Catalytic activity/Vol] 134.0 U/L Normal 73.0-393.0 [facility] Comment on above: Performed By: #### L ACT #### [facility] [address] [place] [address] Dr. Pratibha Stevenson PROF 14(COMP METB)on 023 Albumin [Mass/Vol] 3.1 g/dL Critically low 3.4-5.0 Th e [facility] Comment on above: Performed By: #### L ACT #### [facility] [address] [place] [address] Dr. Pratibha Stevenson Albumin/Globulin [Mass ratio] 1.1 {ratio} Normal [facility] Comment on above: Performed By: #### L ACT #### [facility] [address] [place] [address] Dr. Pratibha Stevenson ALP [Catalytic activity/Vol] 68 U/L Normal 46-116 [facility] Comment on above: Performed By: #### L ACT #### [facility] [address] [place] [address] Dr. Pratibha Stevenson ALT [Catalytic activity/Vol] 25 U/L Normal 16-63 [facility] Comment on above: Performed By: #### L ACT #### [facility] [address] [place] [address] Dr. Pratibha Stevenson Anion gap [Moles/Vol] 11.1 mmol/L Normal [facility] Comment on above: Performed By: #### L ACT #### [facility] [address] [place] [address] Dr. Pratibha Stevenson AST [Catalytic activity/Vol] 16 U/L Normal 15-37 [facility] Comment on above: Performed By: #### L ACT #### [facility] [address] [place] [address] Dr. Pratibha Stevenson Bilirubin [Mass/Vol] 0.5 mg/dL Normal 0.2-1.0 [facility] Comment on above: Performed By: #### L ACT #### [facility] [address] [place] [address] Dr. Pratibha Stevenson Calcium [Mass/Vol] 8.6 mg/dL Normal 8.5-10.[address] [facility] Comment on above: Performed By: #### L ACT #### [facility] [address] [address] [address] Pratibha Stevenson Chloride [Moles/Vol] 105 mmol/L Normal 98-107 [facility] Comment on above: Performed By: #### L ACT #### [facility] [address] [address] [address] Pratibha Stevenson CO2 [Moles/Vol] 26.6 mmol/L Normal 21.0-32.0 [facility] Comment on above: Performed By: #### L ACT #### [facility] [address] [address] [address] Pratibha Stevenson Creatinine [Mass/Vol] 1.12 mg/dL Normal 0.70-1.30 [facility] Comment on above: Performed By: #### L ACT #### [facility] [address] [address] [address] Pratibha Stevenson EGFR-AF FRENCH >60 Normal >=60 [facility] Comment on above: Performed By: #### L ACT #### [facility] [address] [address] [address] Pratibha Stevenson EGFR-NON AF FRENCH >60 Normal >=60 [facility] Comment on above: Performed By: #### L ACT #### [facility] [address] [address] [address] Pratibha Stevenson Globulin (S) [Mass/Vol] 2.7 g/dL Normal [facility] Comment on above: Performed By: #### L ACT #### [facility] [address] [address] [address] Pratibha Stevenson Glucose [Mass/Vol] 86 mg/dL Normal 74-106 [facility] Comment on above: Performed By: #### L ACT #### [facility] [address] [address] [address] Pratibha Stevenson Potassium [Moles/Vol] 3.7 mmol/L Normal 3.5-5.1 [facility] Comment on above: Performed By: #### L ACT #### [facility] [address] [place], [place] [address] Dr. Pratibha Stevenson Protein [Mass/Vol] 5.8 g/dL Critically low 6.4-8.2 [facility] Comment on above: Performed By: #### L ACT #### [facility] [address], [place] [address] Dr. Pratibha Stevenson Sodium [Moles/Vol] 139 mmol/L Normal 136-[address] [facility] Comment on above: Performed By: #### L ACT #### [facility] [address], [place] [address] Dr. Pratibha Stevenson Urea nitrogen [Mass/Vol] 12.0 mg/dL Normal 7.0-18.0 [facility] [place] [facility] Comment on above: Performed By: #### L ACT #### [facility] [address], [place] [address] Dr. Pratibha Stevenson Urea nitrogen/Creatinine [Mass ratio] 10.7 mg/mg Normal [facility] [place] [facility] Comment on above: Performed By: #### L ACT #### [facility] [address], [place] [address] Dr. Pratibha Stevenson US KIDNEYSon 05-10-2022 US [...] by: SAUMYA MARSH Date: 2022-05-10 08:37 Normal [facility] [place] [facility] XR KUB 1 VIEWon 05-10-2022 XR KUB [...] MAUREEN GARDNER Date: 2022-05-10 06:55 Normal [facility] AMYLASEon 05-09-2022 Amylase [Catalytic activity/Vol] 44 U/L Normal 25-115 [facility] Comment on above: Performed By: #### C BC #### [facility] [address] [place] [address] Dr. Pratibha Stevenson CBC AUTO DIFFon 05-09-2022 BASO # 0.1 103/ul Normal 0.0-0.1 [facility] [place] [facility] Comment on above: Performed By: #### S SCRN, GRASTCX #### [facility] [address] [place] [address] Dr. Pratibha Stevenson Basophils/100 WBC (Bld) 0.9 % Normal 0.2-2.0 [facility] Comment on above: Performed By: #### S SCRN, GRASTCX #### [facility] [address] [place] [address] Dr. Pratibha Stevenson EO # 0.2 103/ul Normal 0.0-0.7 [facility] [place] [facility] Comment on above: Performed By: #### S SCRN, GRASTCX #### [facility] [address] [place] [address] Dr. Pratibha Stevenson Eosinophils/100 WBC (Bld) 2.6 % Normal 0.9-7.0 [facility] Comment on above: Performed By: #### S JOSE ARMANDO GRASTCX #### [facility] [address] [place] [address] Dr. Pratibha Stevenson Erythrocyte distribution width (RBC) [Ratio] 11.9 % Normal 11.0-15.0 [facility] [place] [facility] Comment on above: Performed By: #### S JOSE ARMANDO, GRASTCX #### [facility] [address] [place] [address] Dr. Pratibha Stevenson Hematocrit (Bld) [Volume fraction] 38.8 % Critically low 42.0-54.0 [facility] [place] [facility] Comment on above: Performed By: #### S JOSE ARMANDO GRASTCX #### [facility] [address] [place] [address] Dr. Pratibha Stevenson Hemoglobin (Bld) [Mass/Vol] 13.9 g/dL Critically low 14.0-18.0 [facility] [place] [facility] Comment on above: Performed By: #### S JOSE ARMANDO GRASTCX #### [facility] [address] [place] [address] Dr. Pratibha Stevenson IG # 0.02 10e3/ul Normal 0.00-0.03 [facility] [place] [facility] Comment on above: Performed By: #### S JOSE ARMANDO GRASTCX #### [facility] [address] [place] [address] Dr. Pratibha Stevenson IG % 0.4 % Normal 0.0-0.5 [facility] [place] [facility] Comment on above: Performed By: #### S JOSE ARMANDO GRASTCX #### [facility] [address] [place] [address] Dr. Pratibha Stevenson LYMPH # 2.0 103/ul Normal 1.2-3.8 [facility] Comment on above: Performed By: #### S JOSE ARMANDO GRASTCX #### [facility] [address] [place] [address] Dr. Pratibha Stevenson Lymphocytes/100 WBC (Bld) 34.9 % Normal 20.5-60.0 [facility] [place] [facility] Comment on above: Performed By: #### S JOSE ARMANDO GRASTCX #### [facility] [address] [place] [address] Dr. Pratibha Stevenson MANUAL DIFF REQ NO Normal [facility] Comment on above: Performed By: #### S SCRN, GRASTCX #### [facility] [address] [place] [address] Dr. Pratibha Stevenson MCH (RBC) [Entitic mass] 31.0 pg Normal 25.9-34.0 [facility] Comment on above: Performed By: #### S SCRN, GRASTCX #### [facility] [address] [place] [address] Dr. Pratibha Stevenson MCHC (RBC) [Mass/Vol] 35.8 g/dL Critically high 29.9-35.2 [facility] Comment on above: Performed By: #### S SCRN, GRASTCX #### [facility] [address] [place] [address] Dr. Pratibha Stevenson MCV (RBC) [Entitic vol] 86.6 fL Normal 80.0-94.0 [facility] [place] [facility] Comment on above: Performed By: #### S SCRN, GRASTCX #### [facility] [address] [place] [address] Dr. Pratibha Stevenson MONO # 0.4 103/ul Normal 0.3-0.8 [facility] [place] [facility] Comment on above: Performed By: #### S SCRN, GRASTCX #### [facility] [address] [place] [address] Dr. Pratibha Stevenson Monocytes/100 WBC (Bld) 6.2 % Normal 1.7-12.0 [facility] Comment on above: Performed By: #### S SCRN, GRASTCX #### [facility] [address] [place] [address] Dr. Pratibha Stevenson NEUT # 3.1 103/ul Normal 1.4-6.5 [facility] Comment on above: Performed By: #### S SCRN, GRASTCX #### [facility] [address] [place] [address] Dr. Pratibha Stevenson Neutrophils/100 WBC (Bld) 55.0 % Normal 43.0-75.0 [facility] Comment on above: Performed By: #### S SCRN, GRASTCX #### [facility] [address] [place] [address] Dr. Pratibha Stevenson Platelet mean volume (Bld) [Entitic vol] 9.7 fL Normal 9.5-13.5 [facility] [place] [facility] Comment on above: Performed By: #### S SCRN, GRASTCX #### [facility] [address] [place] [address] Dr. Pratibha Stevenson PLT 201 103/ul Normal 150-450 [facility] [place] [facility] Comment on above: Performed By: #### S SCRN, GRASTCX #### [facility] [address] [place] [address] Dr. Pratibha Stevenson RBC 4.48 106/ul Critically low 4.70-6.10 [facility] Comment on above: Performed By: #### S BELAN, GRASTCX #### [facility] [address] [place] [address] Dr. Pratibha Stevenson WBC 5.7 103/ul Normal 4.0-11.0 [facility] [place] [facility] Comment on above: Performed By: #### S JOSE ARMANDO, GRASTCX #### [facility] [address] [place] [address] Dr. Pratibha Stevenson CULTURE URINEon 05-09-2022 CULTURE URINE Culture Observations : NO GROWTH. Normal [facility] [place] [facility] Comment on above: Performed By: #### C BC #### [facility] [address] [place] [address] Dr. Pratibha Stevenson LIPASEon 05-09-2022 Lipase [Catalytic activity/Vol] 98.0 U/L Normal 73.0-393.0 [facility] [place] [facility] Comment on above: Performed By: #### C BC #### [facility] [address] [place] [address] Dr. Pratibha Stevenson PROF 14(COMP METB)on 023 Albumin [Mass/Vol] 3.2 g/dL Critically low 3.4-5.0 [facility] Comment on above: Performed By: #### C BC #### [facility] [address] [place] [address] Dr. Pratibha Stevenson Albumin/Globulin [Mass ratio] 1.3 {ratio} Normal [facility] [place] [facility] Comment on above: Performed By: #### C BC #### [facility] [address] [place] [address] Dr. Pratibha Stevenson ALP [Catalytic activity/Vol] 74 U/L Normal 46-116 [facility] [place] [facility] Comment on above: Performed By: #### C BC #### [facility] [address] [place] [address] Dr. Pratibha Stevenson ALT [Catalytic activity/Vol] 25 U/L Normal 16-63 [facility] [place] [facility] Comment on above: Performed By: #### C BC #### [facility] [address] [place] [address] Dr. Pratibha Stevenson Anion gap [Moles/Vol] 10.7 mmol/L Normal [facility] [place] [facility] Comment on above: Performed By: #### C BC #### [facility] [address] [place] [address] Dr. Pratibha Stevenson AST [Catalytic activity/Vol] 18 U/L Normal 15-37 [facility] [place] [facility] Comment on above: Performed By: #### C BC #### [facility] [address] [place] [address] Dr. Pratibha Stevenson Bilirubin [Mass/Vol] 0.7 mg/dL Normal 0.2-1.0 [facility] [place] [facility] Comment on above: Performed By: #### C BC #### [facility] [address] [place] [address] Dr. Pratibha Stevenson Calcium [Mass/Vol] 8.5 mg/dL Normal 8.5-10.[address] [facility] Comment on above: Performed By: #### C BC #### [facility] [address] [place] [address] Dr. Pratibha Stevenson Chloride [Moles/Vol] 106 mmol/L Normal 98-107 [facility] [place] [facility] Comment on above: Performed By: #### C BC #### [facility] [address] [place] [address] Dr. Pratibha Stevenson CO2 [Moles/Vol] 27.1 mmol/L Normal 21.0-32.0 [facility] Comment on above: Performed By: #### C BC #### [facility] [address] [place] [address] [address] Pratibha Stevenson Creatinine [Mass/Vol] 1.16 mg/dL Normal 0.70-1.30 [facility] [place] [facility] Comment on above: Performed By: #### C BC #### [facility] [address] [place] [address] [address] Pratibha Stevenson EGFR-AF FRENCH >60 Normal >=60 [facility] Comment on above: Performed By: #### C BC #### [facility] [address] [place] [address] [address] Pratibha Stevenson EGFR-NON AF FRENCH >60 Normal >=60 [facility] [place] [facility] Comment on above: Performed By: #### C BC #### [facility] [address] [place] [address] Dr. Pratibha Stevenson Globulin (S) [Mass/Vol] 2.5 g/dL Normal [facility] [place] [facility] Comment on above: Performed By: #### C BC #### [facility] [address] [place] [address] Dr. Pratibha Stevenson Glucose [Mass/Vol] 90 mg/dL Normal 74-[address] [facility] Comment on above: Performed By: #### C BC #### [facility] [address] [place] [address] Dr. Pratibha Stevenson Potassium [Moles/Vol] 3.8 mmol/L Normal 3.5-5.1 [facility] [place] [facility] Comment on above: Performed By: #### C BC #### [facility] [address] [place] [address] Dr. Pratibha Stevenson Protein [Mass/Vol] 5.7 g/dL Critically low 6.4-8.2 [facility] Comment on above: Performed By: #### C BC #### [facility] [address] [place] [address] Dr. Pratibha Stevenson Sodium [Moles/Vol] 140 mmol/L Normal 136-[address] [facility] Comment on above: Performed By: #### C BC #### [facility] [address] [place] [address] [address] Pratibha Stevenson Urea nitrogen [Mass/Vol] 12.0 mg/dL Normal 7.0-18.0 [facility] [place] [facility] Comment on above: Performed By: #### C BC #### [facility] [address] [place] [address] Dr. Pratibha Stevenson Urea nitrogen/Creatinine [Mass ratio] 10.3 mg/mg Normal [facility] [place] [facility] Comment on above: Performed By: #### C BC #### [facility] [address] [place] [address] Dr. Pratibha Stevenson XR KUB 1 VIEWon [...] EDIS HERNÁNDEZ Date: 2022-05-09 05:31 Normal [facility] CBC AUTO DIFFon 05-08-2022 BASO # 0.1 103/ul Normal 0.0-0.1 [facility] [place] [facility] Comment on above: Performed By: #### C BC #### [facility] [address] [place] [address] Dr. Pratibha Stevenson Basophils/100 WBC (Bld) 0.4 % Normal 0.2-2.0 [facility] [place] [facility] Comment on above: Performed By: #### C BC #### [facility] [address] [place] [address] Dr. Pratibha Stevenson EO # 0.1 103/ul Normal 0.0-0.7 [facility] [place] [facility] Comment on above: Performed By: #### C BC #### [facility] [address] [place] [address] Dr. Pratibha Stevenson Eosinophils/100 WBC (Bld) 1.0 % Normal 0.9-7.0 [facility] [place] [facility] Comment on above: Performed By: #### C BC #### [facility] [address] [place] [address] Dr. Pratibha Stevenson Erythrocyte distribution width (RBC) [Ratio] 11.9 % Normal 11.0-15.0 [facility] [place] [facility] Comment on above: Performed By: #### C BC #### [facility] [address] [place] [address] Dr. Pratibha Stevenson Hematocrit (Bld) [Volume fraction] 47.4 % Normal 42.0-54.0 [facility] [place] [facility] Comment on above: Performed By: #### C BC #### [facility] [address] [place] [address] Dr. Pratibha Stevenson Hemoglobin (Bld) [Mass/Vol] 17.3 g/dL Normal 14.0-18.0 [facility] [place] [facility] Comment on above: Performed By: #### C BC #### [facility] [address] [place] [address] Dr. Pratibha Stevenson IG # 0.05 10e3/ul Critically high 0.00-0.03 [facility] Comment on above: Performed By: #### C BC #### [facility] [address] [place] [address] Dr. Pratibha Stevenson IG % 0.4 % Normal 0.0-0.5 [facility] [place] [facility] Comment on above: Performed By: #### C BC #### [facility] [address] [place] [address] Dr. Pratibha Stevenson LYMPH # 2.4 103/ul Normal 1.2-3.8 [facility] [place] [facility] Comment on above: Performed By: #### C BC #### [facility] [address] [place] [address] Dr. Pratibha Stevenson Lymphocytes/100 WBC (Bld) 18.6 % Critically low 20.5-60.0 [facility] [place] [facility] Comment on above: Performed By: #### C BC #### [facility] [address] [place] [address] Dr. Pratibha Stevenson MANUAL DIFF REQ NO Normal [facility] Comment on above: Performed By: #### C BC #### [facility] [address] [place] [address] Dr. Pratibha Stevenson MCH (RBC) [Entitic mass] 31.3 pg Normal 25.9-34.0 [facility] [place] [facility] Comment on above: Performed By: #### C BC #### [facility] [address] [place] [address] Dr. Pratibha Stevenson MCHC (RBC) [Mass/Vol] 36.5 g/dL Critically high 29.9-35.2 [facility] [place] [facility] Comment on above: Performed By: #### C BC #### [facility] [address] [place] [address] Dr. Pratibha Stevenson MCV (RBC) [Entitic vol] 85.7 fL Normal 80.0-94.0 [facility] [place] [facility] Comment on above: Performed By: #### C BC #### [facility] [address] [place] [address] Dr. Pratibha Stevenson MONO # 0.6 103/ul Normal 0.3-0.8 [facility] [place] [facility] Comment on above: Performed By: #### C BC #### [facility] [address] [place] [address] Dr. Pratibha Stevenosn Monocytes/100 WBC (Bld) 5.0 % Normal 1.7-12.0 [facility] [place] [facility] Comment on above: Performed By: #### C BC #### [facility] [address] [place] [address] Dr. Pratibha Stevenson NEUT # 9.6 103/ul Critically high 1.4-6.[address] [facility] Comment on above: Performed By: #### C BC #### [facility] [address] [place] [address] Dr. Pratibha Stevenson Neutrophils/100 WBC (Bld) 74.6 % Normal 43.0-75.0 [facility] Comment on above: Performed By: #### C BC #### [facility] [address], [place] [address] Dr. Pratibha Stevenson Platelet mean volume (Bld) [Entitic vol] 9.6 fL Normal 9.5-13.5 [facility] Comment on above: Performed By: #### C BC #### [facility] [address] [place] [address] [address] Pratibha Stevenson PLT 286 103/ul Normal 150-450 [facility] Comment on above: Performed By: #### C BC #### [facility] [address] [place] [address] [address] Pratibha Stevenson RBC 5.53 106/ul Normal 4.70-6.10 [facility] Comment on above: Performed By: #### C BC #### [facility] [address] [place], [place] [id number] Dr. Pratibha Stevenson WBC 12.8 103/ul Critically high 4.0-11.0 [facility] Comment on above: Performed By: #### C BC #### [facility] [address] [place] [address] ABD/PELV W CONon [...] CHAGO ROLLINS Date: 2022-05-08 18:37 Normal [facility]on SARS-CoV-2 (COVID-19) RNA MARIKA+probe Ql (Unsp spec) Not detected Normal NOT DETECTED [facility] Comment on above: Result Comment: [...] for this test is supported by the [place] of Health and Human Service's declaration that [...] used). Performed By: #### C BC #### [facility] [address] [place] [address] Dr. Pratibha Stevenson ER URINE PROFILEon 3 Bilirubin Ql (U) SMALL Abnormal NEGATIVE [facility] Comment on above: Performed By: #### C BC #### [facility] [address] [place] [address] Dr. Pratibha Stevenson Clarity (U) CLEAR Normal CLEAR [facility] Comment on above: Performed By: #### C BC #### [facility] [address] [place] [address] Dr. Pratibha Stevenson Color (U) DK. ORANGE Abnormal YELLOW [facility] Comment on above: Performed By: #### C BC #### [facility] [address] [place] [address] Dr. Pratibha RIOS A micrscopic examination will be performed if indicated. Normal [facility] Comment on above: Performed By: #### C BC #### [facility] [address] [place] [address] Dr. Pratibha Stevenson Glucose Ql (U) Negative Normal NEGATIVE [facility] Comment on above: Performed By: #### C BC #### [facility] [address] [place] [address] Dr. Pratibha Stevenson Hemoglobin Ql (U) LARGE Abnormal NEGATIVE [facility] [place] [facility] Comment on above: Performed By: #### C BC #### [facility] [address] [place] [address] Dr. Pratibha Stevenson Ketones Ql (U) TRACE Abnormal NEGATIVE [facility] Comment on above: Performed By: #### C BC #### [facility] [address] [place] [address] Dr. Pratibha Stevenson LEUKOCYTES Negative Normal NEGATIVE [facility] [place] [facility] Comment on above: Performed By: #### C BC #### [facility] [address] [place] [address] Dr. Pratibha Stevenson Nitrite Ql (U) Negative Normal NEGATIVE [facility] Comment on above: Performed By: #### C BC #### [facility] [address] [place] [address] Dr. Pratibha Stevenson pH (U) 6.5 [pH] Normal 5-9 [facility] Comment on above: Performed By: #### C BC #### [facility] [address] [place] [address] Dr. Pratibha Stevenson Protein (U) [Mass/Vol] 100 mg/dL Abnormal NEGATIVE/ TRACE [facility] [place] [facility] Comment on above: Performed By: #### C BC #### [facility] [address] [place] [address] Dr. Pratibha Stevenson SPEC GRAVITY 1.010 Normal 1.005-<=1.[address] [facility] Comment on above: Performed By: #### C BC #### [facility] [address] [place] [address] Dr. Pratibha Stevenson UR MICRO IND INDICATED Normal [facility] [place] [facility] Comment on above: Performed By: #### C BC #### [facility] [address] [place] [address] Dr. Pratibha Stevenson Urobilinogen Qn (U) 1.0 {Butch'U}/dL Normal 0.2 - 1. 0 [facility] [place] [facility] Comment on above: Performed By: #### C BC #### [facility] [address] [place] [address] Dr. Pratibha Stevenson LIPASEon 05-08-2022 Lipase [Catalytic activity/Vol] 417.0 U/L Critically high 73.0-393.0 [facility] [place] [facility] Comment on above: Performed By: #### L ACT #### [facility] [address] [place] [address] Dr. Pratibha Stevenson PROF 14(COMP METB)on 023 Albumin [Mass/Vol] 4.5 g/dL Normal 3.4-5.[address] [facility] Comment on above: Performed By: #### L ACT #### [facility] [address] [place] [address] Dr. Pratibha Stevenson Albumin/Globulin [Mass ratio] 1.3 {ratio} Normal [facility] [place] [facility] Comment on above: Performed By: #### L ACT #### [facility] [address] [place] [address] Dr. Pratibha Stevenson ALP [Catalytic activity/Vol] 97 U/L Normal 46-116 [facility] Comment on above: Performed By: #### L ACT #### [facility] [address] [address] [address] Pratibha Stevenson ALT [Catalytic activity/Vol] 35 U/L Normal 16-63 [facility] [place] [facility] Comment on above: Performed By: #### L ACT #### [facility] [address] [place] [address] Dr. Pratibha Stevenson Anion gap [Moles/Vol] 13.7 mmol/L Normal [facility] [place] [facility] Comment on above: Performed By: #### L ACT #### [facility] [address] [address] [address] Pratibha Stevenson AST [Catalytic activity/Vol] 22 U/L Normal 15-37 [facility] [place] [facility] Comment on above: Performed By: #### L ACT #### [facility] [address] [place] [address] Dr. Pratibha Stevenson Bilirubin [Mass/Vol] 0.7 mg/dL Normal 0.2-1.0 [facility] [place] [facility] Comment on above: Performed By: #### L ACT #### [facility] [address] [place] [address] Dr. Pratibha Stevenson Calcium [Mass/Vol] 9.6 mg/dL Normal 8.5-10.[address] [facility] Comment on above: Performed By: #### L ACT #### [facility] [address] [place] [address] Dr. Pratibha Stevenson Chloride [Moles/Vol] 99 mmol/L Normal 98-107 [facility] Comment on above: Performed By: #### L ACT #### [facility] [address] [place] [address] Dr. Pratibha Stevenson CO2 [Moles/Vol] 29.0 mmol/L Normal 21.0-32.0 [facility] Comment on above: Performed By: #### L ACT #### [facility] [address] [place] [address] Dr. Pratibha Stevenson Creatinine [Mass/Vol] 1.43 mg/dL Critically high 0.70-1.30 [facility] Comment on above: Performed By: #### L ACT #### [facility] [address] [place] [address] Dr. Pratibha Stevenson EGFR-AF FRENCH >60 Normal >=60 [facility] Comment on above: Performed By: #### L ACT #### [facility] [address] [address] [address] Pratibha Stevenson EGFR-NON AF FRENCH 58 mL/min/1.73m2 Critically low >=60 [facility] Comment on above: Performed By: #### L ACT #### [facility] [address] [address] [address] Pratibha Stevenson Globulin (S) [Mass/Vol] 3.5 g/dL Normal [facility] Comment on above: Performed By: #### L ACT #### [facility] [address] [address] [address] Pratibha Stevenson Glucose [Mass/Vol] 127 mg/dL Critically high 74-106 [facility] Comment on above: Performed By: #### L ACT #### [facility] [address] [address] [address] Pratibha Stevenson Potassium [Moles/Vol] 3.7 mmol/L Normal 3.5-5.1 [facility] Comment on above: Performed By: #### L ACT #### [facility] [address] [address] [address] Pratibha Stevenson Protein [Mass/Vol] 8.0 g/dL Normal 6.4-8.[address] [facility] Comment on above: Performed By: #### L ACT #### [facility] [address] [address] [address] Pratibha Stevenson Sodium [Moles/Vol] 138 mmol/L Normal 136-145 [facility] Comment on above: Performed By: #### L ACT #### [facility] [address] [address] [address] Pratibha Stevenson Urea nitrogen [Mass/Vol] 13.0 mg/dL Normal 7.0-18.0 [facility] Comment on above: Performed By: #### L ACT #### [facility] [address] [address] [address] Pratibha Stevenson Urea nitrogen/Creatinine [Mass ratio] 9.1 mg/mg Normal [facility] Comment on above: Performed By: #### L ACT #### [facility] [address] [place] [address] Dr. Pratibha Stevenson URINE MICROSCOPIC ONLYon BACTERIA NONE SEEN Normal NONE SEEN [facility] Comment on above: Performed By: #### C BC #### [facility] [address] [place] [address] Dr. Pratibha Stevenson Bacteria identified Cx Nom (U) NOT INDICATED Normal [facility] Comment on above: Performed By: #### C BC #### [facility] [address] [place] [address] Dr. Pratibha Stevenson CAST NONE SEEN Normal NONE SEEN [facility] Comment on above: Performed By: #### C BC #### [facility] [address] [place] [address] Dr. Pratibha Stevenson Crystals LM Nom (Urine sed) NONE SEEN Normal NONE SEEN [facility] Comment on above: Performed By: #### C BC #### [facility] [address] [place] [address] Dr. Pratibha Stevenson Epithelial cells LM Ql (Urine sed) FEW Abnormal NONE SEEN /RARE [facility] Comment on above: Performed By: #### C BC #### [facility] [address] [place] [address] Dr. Pratibha Stevenson MUCOUS TRACE Abnormal NONE SEEN [facility] Comment on above: Performed By: #### C BC #### [facility] [address] [place] [address] Dr. Pratibha Stevenson RBC (U) [#/Vol] /uL Abnormal 0-[address] [facility] Comment on above: Performed By: #### C BC #### [facility] [address] [place] [address] Dr. Pratibha Stevenson WBC 2-5 Abnormal NONE SEEN [facility] Comment on above: Performed By: #### C BC #### [facility] [address] [place] [address] Dr. Pratibha Stevenson XR CHEST 1 Von [...] RAMO ZEPEDA Date: 2022-05-08 17:40 Normal [facility] CBC AUTO DIFFon 03-23-2022 BASO # 0.1 103/ul Normal 0.0-0.1 [facility] Comment on above: Performed By: #### C BC #### [facility] [address] [address] [address] Pratibha Stevenson Basophils/100 WBC (Bld) 0.9 % Normal 0.2-2.0 [facility] Comment on above: Performed By: #### C BC #### [facility] [address] [address] [address] Pratibha Stevenson EO # 0.1 103/ul Normal 0.0-0.7 [facility] Comment on above: Performed By: #### C BC #### [facility] [address] [address] [address] Pratibha Stevenson Eosinophils/100 WBC (Bld) 1.7 % Normal 0.9-7.0 [facility] Comment on above: Performed By: #### C BC #### [facility] [address] [address] [address] Pratibha Stevenson Erythrocyte distribution width (RBC) [Ratio] 12.3 % Normal 11.0-15.0 [facility] Comment on above: Performed By: #### C BC #### [facility] [address] [address] [address] Pratibha Stevenson Hematocrit (Bld) [Volume fraction] 47.2 % Normal 42.0-54.0 [facility] Comment on above: Performed By: #### C BC #### [facility] [id number] Pratibha Stevenson Hemoglobin (Bld) [Mass/Vol] 16.0 g/dL Normal 14.0-18.0 [facility] Comment on above: Performed By: #### C BC #### [facility] [address] [place] [address] Dr. Pratibha Stevenson IG # 0.03 10e3/ul Normal 0.00-0.03 [facility] Comment on above: Performed By: #### C BC #### [facility] [address] [place] [address] Dr. Pratibha Stevenson IG % 0.4 % Normal 0.0-0.5 [facility] Comment on above: Performed By: #### C BC #### [facility] [address] [place] [address] Dr. Pratibha Stevenson LYMPH # 2.5 103/ul Normal 1.2-3.8 [facility] Comment on above: Performed By: #### C BC #### [facility] [address] [place] [address] Dr. Pratibha Stevenson Lymphocytes/100 WBC (Bld) 30.4 % Normal 20.5-60.0 [facility] Comment on above: Performed By: #### C BC #### [facility] [address] [place] [address] Dr. Pratibha Stevenson MANUAL DIFF REQ NO Normal [facility] Comment on above: Performed By: #### C BC #### [facility] [address] [place] [address] Dr. Pratibha Stevenson MCH (RBC) [Entitic mass] 30.9 pg Normal 25.9-34.0 [facility] Comment on above: Performed By: #### C BC #### [facility] [address] [place] [address] Dr. Pratibha Stevenson MCHC (RBC) [Mass/Vol] 33.9 g/dL Normal 29.9-35.2 [facility] Comment on above: Performed By: #### C BC #### [facility] [address] [place] [address] Dr. Pratibha Stevenson MCV (RBC) [Entitic vol] 91.3 fL Normal 80.0-94.0 [facility] Comment on above: Performed By: #### C BC #### [facility] [address] [place] [address] Dr. Pratibha Stevenson MONO # 0.6 103/ul Normal 0.3-0.8 [facility] Comment on above: Performed By: #### C BC #### [facility] [address] [place] [address] Dr. Pratibha Stevenson Monocytes/100 WBC (Bld) 7.6 % Normal 1.7-12.0 [facility] Comment on above: Performed By: #### C BC #### [facility] [address] [place] [address] Dr. Pratibha Stevenson NEUT # 4.8 103/ul Normal 1.4-6.5 [facility] Comment on above: Performed By: #### C BC #### [facility] [address] [place] [address] Dr. Pratibha Stevenson Neutrophils/100 WBC (Bld) 59.0 % Normal 43.0-75.0 [facility] Comment on above: Performed By: #### C BC #### [facility] [address] [place] [address] Dr. Pratibha Stevenson Platelet mean volume (Bld) [Entitic vol] 10.2 fL Normal 9.5-13.5 [facility] Comment on above: Performed By: #### C BC #### [facility] [address] [place] [address] Dr. Pratibha Stevenson PLT 258 103/ul Normal 150-450 [facility] Comment on above: Performed By: #### C BC #### [facility] [address] [place] [address] Dr. Pratibha Stevenson RBC 5.17 106/ul Normal 4.70-6.10 [facility] Comment on above: Performed By: #### C BC #### [facility] [address] [place] [address] Dr. Pratibha Stevenson WBC 8.1 103/ul Normal 4.0-11.0 [facility] Comment on above: Performed By: #### C BC #### [facility] [address] [place] [address] ABD/PELVIS WO CONon [...] SHARON GODINEZ Date: 2022-03-22 23:40 Normal [facility] PROF 14(COMP METB)on 022 Albumin [Mass/Vol] 4.2 g/dL Normal 3.4-5.[address] [facility] Comment on above: Performed By: #### L ACT #### [facility] [address] [address] [address] Pratibha Stevenson Albumin/Globulin [Mass ratio] 1.2 {ratio} Normal [facility] Comment on above: Performed By: #### L ACT #### [facility] [address] [address] [address] Pratibha Stevenson ALP [Catalytic activity/Vol] 84 U/L Normal 46-116 [facility] Comment on above: Performed By: #### L ACT #### [facility] [address] [address] [address] Pratibha Stevenson ALT [Catalytic activity/Vol] 32 U/L Normal 16-63 [facility] Comment on above: Performed By: #### L ACT #### [facility] [address] [address] [address] Pratibha Stevenson Anion gap [Moles/Vol] 10.6 mmol/L Normal [facility] Comment on above: Performed By: #### L ACT #### [facility] [address] [address] [address] Pratibha Stevenson AST [Catalytic activity/Vol] 18 U/L Normal 15-37 [facility] Comment on above: Performed By: #### L ACT #### [facility] [address] [address] [address] Pratibha Stevenson Bilirubin [Mass/Vol] 0.4 mg/dL Normal 0.2-1.0 [facility] Comment on above: Performed By: #### L ACT #### [facility] [address] [address] [address] Pratibha Stevenson Calcium [Mass/Vol] 9.8 mg/dL Normal 8.5-10.[address] [facility] Comment on above: Performed By: #### L ACT #### [facility] [address] [address] [address] Pratibha Stevenson Chloride [Moles/Vol] 103 mmol/L Normal 98-107 [facility] Comment on above: Performed By: #### L ACT #### [facility] [address] [address] [address] Pratibha Stevenson CO2 [Moles/Vol] 28.2 mmol/L Normal 21.0-32.0 [facility] Comment on above: Performed By: #### L ACT #### [facility] [address] [address] [address] Pratibha Stevenson Creatinine [Mass/Vol] 1.24 mg/dL Normal 0.70-1.30 [facility] Comment on above: Performed By: #### L ACT #### [facility] [address] [address] [address] Pratibha Stevenson EGFR-AF FRENCH >60 Normal >=60 [facility] Comment on above: Performed By: #### L ACT #### [facility] [address] [address] [address] Pratibha Stevenson EGFR-NON AF FRENCH >60 Normal >=60 [facility] Comment on above: Performed By: #### L ACT #### [facility] [address] [address] [address] Pratibha Stevenson Globulin (S) [Mass/Vol] 3.6 g/dL Normal [facility] Comment on above: Performed By: #### L ACT #### [facility] [address] [address] [address] Pratibha Stevneson Glucose [Mass/Vol] 102 mg/dL Normal 74-[address] [facility] Comment on above: Performed By: #### L ACT #### [facility] [address] [place] [address] Dr. Pratibha Stevenson Potassium [Moles/Vol] 3.8 mmol/L Normal 3.5-5.1 [facility] Comment on above: Performed By: #### L ACT #### [facility] [address] [place] [address] Dr. Pratibha Stevenson Protein [Mass/Vol] 7.8 g/dL Normal 6.4-8.2 [facility] Comment on above: Performed By: #### L ACT #### [facility] [address] [place] [address] Dr. Pratibha Stevenson Sodium [Moles/Vol] 138 mmol/L Normal 136-145 [facility] Comment on above: Performed By: #### L ACT #### [facility] [address] [address] [address] Pratibha Stevenson Urea nitrogen [Mass/Vol] 18.0 mg/dL Normal 7.0-18.0 [facility] Comment on above: Performed By: #### L ACT #### [facility] [address] [place] [address] Dr. Pratibha Stevenson Urea nitrogen/Creatinine [Mass ratio] 14.5 mg/mg Normal [facility] Comment on above: Performed By: #### L ACT #### [facility] [address] [place] [address] Dr. Pratibha Stevenson Vital Signs Date Time Vital Sign Value Performing Clinician Faci lity 12-09-2024 10:17-0500 Body height 175.3 cm Lisa Ceballos MD Work Phone: [facility] 04-08-2024 10:17-0500 Body mass index (BMI) [Ratio] 32.34 kg/m2 Lisa Ceballos MD Work Phone: [facility] 04-08-2024 10:17-0500 Body weight 99.34 kg Lisa Ceballos MD Work Phone: [facility] 04-08-2024 10:17-0500 Diastolic blood pressure 86 mm[Hg] Lisa Ceballos MD Work Phone: [facility] 04-08-2024 10:17-0500 Heart rate 80 /min Lisa Ceballos MD Work Phone: [facility] 04-08-2024 10:17-0500 SaO2% (BldA) [Mass fraction] 97 % Lisa Ceballos MD Work Phone: [facility] 04-08-2024 10:17-0500 Systolic blood pressure 118 mm[Hg] Lisa Ceballos MD Work Phone: [facility] 03-26-2024 09:05-0500 Body height 175.3 cm Armando Meek PA-C Work Phone: [facility] 03-26-2024 09:05-0500 Body mass index (BMI) [Ratio] 32.22 kg/m2 Armando Meek PA-C Work Phone: [facility] 03-26-2024 09:05-0500 Body weight 98.97 kg Armando Meek PA-C Work Phone: [facility] 03-26-2024 09:05-0500 Diastolic blood pressure 66 mm[Hg] Armando Meek PA-C Work Phone: [facility] 03-26-2024 09:05-0500 Heart rate 71 /min [facility]C [facility] 03-26-2024 09:05-0500 Systolic blood pressure 124 mm[Hg] Armando Meek PA-C [facility] 03-02-2024 11:02-0400 Body temperature 98.8 [degF] Kym Vidal MD Work Phone: [employer] 03-02-2024 11:02-0400 Diastolic blood pressure 72 mm[Hg] Kym Vidal MD Work Phone: [employer] 03-02-2024 11:02-0400 Heart rate 83 /min Kym Vidal MD Work Phone: [employer] 03-02-2024 11:02-0400 Respiratory rate 16 /min Kym Vidal MD Work Phone: [employer] 03-02-2024 11:02-0400 SaO2% (BldA) [Mass fraction] 98 % Kym Vidal MD Work Phone: [employer] 03-02-2024 11:02-0400 Systolic blood pressure 120 mm[Hg] Kym Vidal MD Work Phone: [employer] 03-01-2024 03:44-0400 Body mass index (BMI) [Ratio] 31.82 kg/m2 Kym Vidal MD Work Phone: [employer] 03-01-2024 03:44-0400 Body weight 97.75 kg Kym Vidal MD Work Phone: [employer] 02-27-2024 00:30-0400 Body height 175.3 cm Kym Vidal MD Work Phone: [employer] 07-21-2022 08:57-0400 Blood Pressure Location Shirley Handy [facility] 07-21-2022 08:57-0400 Diastolic blood pressure 69 mm[Hg] Shirley Lue [facility] 07-21-2022 08:57-0400 Heart rate 74 /min Shirley Lue [facility] 07-21-2022 08:57-0400 Systolic blood pressure 133 mm[Hg] Shirley Lue [facility] 07-13-2022 09:17-0400 Blood Pressure Location Shirley Lue [facility] 07-13-2022 09:17-0400 Diastolic blood pressure 68 mm[Hg] Shirley Lue [facility] 07-13-2022 09:17-0400 Heart rate 73 /min Shirley Lue [facility] 07-13-2022 09:17-0400 Systolic blood pressure 124 mm[Hg] Shirley Lue [facility] Encounters Encounter Date Encounter Type Care Provider Facility Start: 04-12-2024 ambulatory [facility] Start: 04-11-2024 End: 04-11-2024 Emergency department patient visit LATRICIA Zion Tha [facility] Start: 04-09-2024 End: 04-09-2024 ambulatory [facility] [place] Start: 04-09-2024 End: 04-09-2024 ambulatory [facility] [place] Start: 04-08-2024 End: 04-08-2024 Office outpatient new 45 minutes Lisa Ceballos MD Work Phone: [facility] Comment on above: Recurrent syncope (P rimary Dx); Seizure (CMS-HCC) Start: 04-08-2024 End: 04-08-2024 ambulatory LISA CEBALLOS [facility] Start: 04-05-2024 End: 04-05-2024 Telephone encounter [facility] Start: 04-03-2024 End: 04-03-2024 ambulatory [facility] Start: 04-01-2024 End: 04-01-2024 Telephone encounter [facility] Comment on above: information wrong on referral Start: 03-27-2024 End: 04-03-2024 Telephone encounter Oriana Davis [facility] Comment on above: prior authorization Start: 03-26-2024 End: 03-26-2024 ambulatory [facility] Start: 03-26-2024 End: 03-26-2024 Office outpatient new 60 minutes Armando COREY-C [facility] Comment on above: Seizure (CMS-HCC) (P rimary Dx); Migraine without aura and without status migrainosus, not intractable; Status migrainosus; Recurrent syncope; Pancytopenia (CMS-HCC); Functional tremor Start: 03-25-2024 End: 03-25-2024 Telephone encounter Breanna Philip [facility] Comment on above: REFERRAL Start: 02-27-2024 End: 03-02-2024 Evaluation and management of inpatient Kym Vidal MD Work Phone: [facility] Comment on above: Pancytopenia (HCC) ( Primary Dx); Hip pain, unspecified laterality Start: 02-26-2024 End: 02-26-2024 Emergency department patient visit [facility] [place] Start: 06-14-2023 End: 06-14-2023 ambulatory LATRICIA GARCIA [facility] Start: 06-14-2023 End: 06-14-2023 Subsequent hospital visit by physician Manjit Waller [facility] Comment on above: Arrived Start: 06-12-2023 End: 06-12-2023 ambulatory LATRICIA GARCIA [facility] Start: 06-12-2023 End: 06-12-2023 Subsequent hospital visit by physician Manjit Waller [facility] Comment on above: Arrived Start: 06-09-2023 End: 06-09-2023 ambulatory [facility] Start: 06-09-2023 End: 06-09-2023 Subsequent hospital visit by physician Flash Goodwin PTA [facility] Comment on above: Arrived Start: 06-05-2023 End: 06-05-2023 ambulatory [facility] Start: 05-31-2023 End: 05-31-2023 ambulatory LATRICIA [facility] Start: 05-29-2023 End: 05-29-2023 ambulatory LATRICIA [facility] Start: 05-26-2023 End: 05-26-2023 ambulatory LATRICIA [facility] Start: 05-22-2023 End: 05-22-2023 ambulatory JON [facility] Start: 05-17-2023 End: 05-17-2023 ambulatory LATRICIA [facility] Start: 03-13-2023 End: 03-13-2023 ambulatory LATRICIA [facility] Start: 08-11-2022 End: 08-11-[address] LATRICIA GARCIA . Facility: Start: 07-22-2022 End: 07-23-[address] LATRICIA GARCIA . Facility: Start: 07-21-2022 End: 07-22-2022 ambulatory Shirley Murrell Facility:[facility] Start: 07-21-2022 End: 07-21-2022 Patient encounter procedure Shirley Murrell [facility] Start: 07-20-2022 End: 07-20-[address] LATRICIA GARCIA . Facility: Start: 07-13-2022 End: 07-14-2022 ambulatory Shirley Murrell Facility:[facility] Start: 07-13-2022 End: 07-13-2022 Patient encounter procedure Shirley Murrell [facility] Start: 07-06-2022 End: 07-07-2022 ambulatory SHIRLEY MURRELL . Facility: Start: 05-23-2022 End: 05-24-2022 ambulatory Shirley Murrell Facility:[facility] Start: 05-23-2022 End: 05-23-2022 Patient encounter procedure Shirley Murrell [facility] Start: 05-11-2022 End: 05-12-2022 ambulatory Shirley Murrell Facility:[id number] Start: 05-08-2022 End: 05-12-[address] [...] OF BLOOD SMEAR Jenny Alvarez APRN - [employer] Work Phone: Start: 03-01-2024 Rhythm ecg 1-3 leads w/interpretation & report Unknown Provider Result Start: 03-01-2024 MYELOID MALIGNANCIES MUTATION PANEL Ruth Wyman MD Work Phone: Start: 03-01-2024 Diagnostic bone marrow biopsies Jenny Alvarez APRN - [facility] Work Phone: Start: 03-01-2024 Rhythm ecg 1-3 leads w/interpretation & report Unknown Provider Result Start: 03-01-2024 Blood count complete auto&auto difrntl wbc Jenny Alvarez [facility] Work Phone: Start: 03-01-2024 SCAN OF BLOOD SMEAR Jenny Alvarez [facility] Work Phone: Start: 02-29-2024 End: 02-29-2024 Ecg routine ecg w/least 12 lds i&r only Ruth Wyman MD Work Phone: Start: 02-29-2024 Blood smear peripheral interp phys w/writ report Jenny Alvarez [facility] Work Phone: Start: 02-29-2024 DIAGNOSTIC QUAL BCR-ABL1 ASSAY W REFLEX TO P190 OR P210 QUANT ASSAYS Jenny Alvarez [facility] Work Phone: Start: 02-29-2024 Calcium ionized [...] VIRUS (EBV) ANTIBODY PANEL I Yasmin Ambrosio [facility] Work Phone: Start: 02-28-2024 Mri brain brain stem w/o w/contrast material Jenny Gunter PHYSICAL SCIENCES PROFESSOR - [employer] Work Phone: Start: 02-28-2024 End: 02-28-2024 Ecg [...] Start: 02-28-2024 Anion gap [Moles/Vol] Jenny Gunter PHYSICAL SCIENCES PROFESSOR - [employer] Work Phone: Start: 02-28-2024 GLOMERULAR FILTRATION RATE, ESTIMATED Jenny Gunter PHYSICAL SCIENCES PROFESSOR - [employer] Work Phone: Start: 02-28-2024 Lactate dehydrogenase ldh Ruth Wyman MD Work Phone: Start: 02-27-2024 VITAMIN B12 & FOLATE Yasmin Ambrosio PHYSICAL SCIENCES PROFESSOR - [employer] Work Phone: Start: 02-27-2024 EEG 24 HOUR AMBULATORY Jenny Gunter PHYSICAL SCIENCES PROFESSOR - [employer] Work Phone: Start: 02-27-2024 Electroencephalogram w/rec awake&asleep Jenny Gunter PHYSICAL SCIENCES PROFESSOR - [employer] Work Phone: Start: 02-27-2024 End: 02-27-2024 C-reactive protein Barak Colon MD Work Phone: Start: 02-27-2024 End: 02-27-2024 Calcium ionized Jenny Gunter AP RN - [employer] Work Phone: Start: 02-27-2024 REFERENCE LAB SAMPLE Jenny Beavers Gunter A PRN - [employer]LE [employer] Work Phone: Start: 02-27-2024 Urnls dip stick/tablet reagent auto microscopy Jenny Gunter PHYSICAL SCIENCES PROFESSOR - [employer] Work Phone: Start: 02-27-2024 End: 02-27-2024 Rhythm ecg 1-3 leads w/interpretation & report Unknown Provider Result Start: 05-23-2022 Cystoscopic removal of ureteric stent Shirley Murrell Start: 05-08-2022 Cystoscopic laser lithotripsy of ureteric calculus Shirley Murrell Plan of Treatment Date Care Activity Detail Author Start: 04-08-2025 Adult BMI Screening Adult BMI Screening [facility] Start: 03-26-2025 Adult BMI Screening Adult BMI Screening [facility] Start: 03-26-2025 Depression Screening Depression Screening [facility] Start: 05-17-2024 End: 05-17-2024 Patient encounter procedure 05/17/2024 9:00 AM EST Office Visit [facility] [address] [place] [phone] Lisa Ceballos MD [address] [place], [place] [phone] [facility] Start: 04-19-2024 End: 04-19-2024 Patient encounter procedure 04/19/2024 9:00 AM EST Office Visit [facility] [address] [place] [phone] Armando Meek, PA-C [address] [place] [phone] [facility] Start: 04-12-2024 End: 04-12-2024 Patient encounter procedure 04/12/2024 3:30 PM EST Office Visit Debbi Young [facility] - Medical Oncology [address] [place] [phone] Ciera Torres MD [address] [place] [address] [address] [place] [id number] Debbi Young [facility] - Medical Oncology Start: 04-09-2024 End: 04-09-2024 Patient encounter procedure [facility] - Cardiovascular Start: 04-08-2024 End: 04-08-2025 Echo complete W/O contrast Echo complete W/O contrast Echocardiography Routine Recurrent syncope Expected: 04/08/2024, Expires: 04/08/[address] [facility] [address]: Comment on above: Expected: 04/08/2024, Expires: Start: 04-08-2024 End: 04-08-2025 Holter monitor study Holter monitor 24-48 hour Cardiac Services Routine Recurrent syncope Expected: 04/08/2024, Expires: 04/08/2025 [facility] Comment on above: Expected: 04/08/2024, Expires: Start: 04-08-2024 End: 04-08-2024 Patient encounter procedure 04/08/2024 10:30 AM EST Office Visit [facility] [address] [place] [address] Lisa Ceballos MD [address] [place] [address] [facility] Start: 04-03-2024 End: 04-03-2024 Patient encounter procedure 04/03/2024 1:00 PM EST Appointment [facility] - Neurophysiology [address] [place] [phone] [facility] - Neurophysiology Start: 04-01-2024 End: 03-02-2025 Vitamin B12 & Folate Vitamin B12 & Folate Lab Routine Pancytopenia (HCC) Expected: 04/01/2024 (Approximate), Expires: 03/02/2025 [facility] Comment on above: Expected: 04/01/2024 (Approximate), Expi res: 03/02/2025 Start: 03-26-2024 End: 03-26-2024 Patient encounter procedure 03/26/2024 9:00 AM EST Office Visit [facility] [address] [place] [address] Armando Meek, PAEmerald [address] [place] [address] [facility] Start: 03-02-2024 End: 03-02-2025 CBC panel - Blood by Automated count CBC Lab Routine Pancytopenia (HCC) Expected: 03/02/2024 (Approximate), Expires: 03/02/2025 [facility] Comment on above: Expected: 03/02/2024 (Approximate), Expi res: 03/02/2025 Start: 12-31-2023 COVID-19 Vaccine () COVID-19 Vaccine () [facility] Start: 12-31-2023 Influenza vaccination Influenza Vaccine [facility] Start: 11-30-2023 Influenza vaccination Flu vaccine (#1) [facility] Start: 06-26-2023 End: 06-26-2023 Patient encounter procedure 06/26/2023 2:[address] [facility] [address] [place] [id number] [facility] Start: 06-23-2023 End: 06-23-2023 Patient encounter procedure 06/23/2023 1:[address] [facility] [address] [place] [id number] [facility] Start: 06-19-2023 End: 06-19-2023 Patient encounter procedure 06/19/2023 3:[address] [facility] [address] [place] [phone] [facility] Start: 06-14-2023 End: 06-14-2023 Patient encounter procedure 06/14/2023 3:[address] [facility] [address] [place] [address] [place] [address] [facility] Start: 06-12-2023 End: 06-12-2023 Patient encounter procedure 06/12/2023 3:[address] [facility] [address] [place] [address] [facility] Start: 11-29-2022 Influenza vaccination Flu vaccine (#1) [facility] Start: 08-18-2011 DTaP,Tdap and Td Vaccines (1 - Tdap) DTaP,Tdap and Td Vaccines (1 - Tdap) [facility] Start: 2010 Adult BMI Follow Up Plan Adult BMI Follow Up Plan [facility] Start: 2010 Adult BMI Screening Adult BMI Screening [facility] Start: 2010 Hepatitis C screening Hepatitis C screen [facility] Start: 08-18-2007 HIV screening HIV screen [facility] Start: 2005 Varicella vaccine (1 of 2 - 13+ 2-dose series) Varicella vaccine (1 of 2 - 13+ 2-dose series) [facility] Start: 2004 Depression Screen Depression Screen [facility] Start: 2004 Depression Screening Depression Screening [facility] Start: 2004 Tobacco Screening Tobacco Screening [facility] Start: 08-18-2003 DTaP,Tdap and Td Vaccines (6 - Tdap) DTaP,Tdap and Td Vaccines (6 - Tdap) [facility] Start: 08-18-2003 DTaP/Tdap/Td vaccine (6 - Tdap) DTaP/Tdap/Td vaccine (6 - Tdap) [facility] Start: 1998 Pneumococcal 0-64 years Vaccine (1 of 2 - PCV) Pneumococcal 0-64 years Vaccine (1 of 2 - PCV) [facility] Start: 1993 Varicella vaccine (1 of 2 - 2-dose childhood series) Varicella vaccine (1 of 2 - 2-dose childhood series) [facility] Start: 02-16-1993 COVID-19 Vaccine (#1) COVID-19 Vaccine (#1) [facility] End: 03-03-2024 CBC W Auto Differential panel - Blood CBC with Auto Differential Lab Routine Daily for 3 Days starting 03/01/2024 until 03/03/2024, 2 completed [facility] Comment on above: Daily for 3 Days starting 03/01/2024 unt il 03/03/2024, 2 completed End: 03-01-2024 Chromosome analysis, bone marrow [facility] Comment on above: Once for 1 Occurrences starting 03/01/20 24 until 03/01/2024 Diagnostic Qual BCR- ABL1 Assay w Reflex to p190 or p210 Quant Assaysantitative Assays Diagnostic Qual BCR-ABL1 Assay w Reflex to p190 or p210 Quant Assaysantitative Assays Lab Routine 02/29/2024 5:30 PM EDT [facility] End: 03-26-2025 EEG EEG Neurology Routine Seizure ([facility]) Recurrent syncope 1 Occurrences starting 03/26/2024 until 03/26/2025 [facility] Work Phone: Comment on above: 1 Occurrences starting 03/26/2024 until 03/26/2025 End: 02-29-2024 Flow Cytometry Leukemia/Lymphoma, Bone Marrow Flow Cytometry Leukemia/Lymphoma, Bone Marrow Lab Routine One Time for 1 Occurrences starting 02/29/2024 until 02/29/2024 [facility] Comment on above: One Time for 1 Occurrences starting 01/31 until 02/29/2024 End: 03-01-2024 Flow Cytometry Leukemia/Lymphoma, Bone Marrow [facility] Comment on above: Once for 1 Occurrences starting 03/01/20 24 until 03/01/2024 End: 03-02-2024 Leukemia / lymphoma phenotype [facility] Work Phone: Comment on above: One Time for 1 Occurrences starting 06/2023 until 03/02/2024 End: 03-01-2024 Myeloid Malignancies Mutation Panel [facility] Comment on above: One Time for 1 Occurrences starting 05/2023 until 03/01/2024 Oxygen therapy [[facility]] Initiate Oxygen Therapy Protocol Respiratory Care Routine As Needed until discontinued starting 02/27/2024 [facility] Work Phone: Comment on above: As Needed until discontinued starting Immunizations Immunization Date Immunization Notes Care Provider Khushbu thao 12-26-1997 DTaP, unspecified formulation Shirley Lue [facility] 12-26-1997 measles, mumps and rubella virus vaccine Shirley Lue [facility] 01-10-1994 DTaP, unspecified formulation Shirley Lue [facility] 01-10-1994 hepatitis B vaccine, pediatric or pediatric/adolescent dosage Shirley Lue [facility] 01-10-1994 Hib, unspecified formulation Shirley Lue [facility] 01-10-1994 measles, mumps and rubella virus vaccine Shirley Lue [facility] 03-12-1993 Hib, unspecified formulation Shirley Lue [facility] 01-01-1993 hepatitis B vaccine, pediatric or pediatric/adolescent dosage Shirley Lue [facility] 01-01-1993 Hib, unspecified formulation Shirley Lue [facility] 1992 hepatitis B vaccine, pediatric or pediatric/adolescent dosage Shirley Lue [facility] 1992 Hib, unspecified formulation Shirley Lue [facility] Payers Date Payer Category Payer Medicaid [id number] 1992 Unknown [id number] 2.16.8 40.1.983149.3.579.2.727 1992 Unknown [id number] 2.16.8 40.1.744574.3.579.2.727 1992 Unknown [id number] 2.16.8 40.1.781125.3.579.2.727 1992 Unknown [id number] 2.16.8 40.1.613984.3.579.2.727 1992 Unknown [id number] 2.16.84 0.1.862571.3.579.2.593 1992 Unknown [id number] 2.16.84 0.1.917058.3.579.2.593 1992 Unknown [id number] 2.16.84 0.1.331092.3.579.2.593 1992 Unknown [id number] 2.16.84 0.1.312005.3.579.2.593 1992 Unknown [id number] 2.16.84 0.1.929777.3.579.2.593 1992 Unknown [id number] 2.16.84 0.1.029516.3.579.2.593 1992 Unknown [id number] 2.16.8 40.1.660452.3.579.2.173 1992 Unknown [id number] 2.16.8 40.1.449183.3.579.2.173 1992 Unknown [id number] 2.16.8 40.1.148662.3.579.2.173 1992 Unknown [id number] 2.16.8 40.1.664628.3.579.2.173 1992 Unknown [id number] 2.16.8 40.1.311355.3.579.2.173 1992 Unknown [id number] 2.16.8 40.1.111864.3.579.2.173 1992 Unknown [id number] 2.16.8 40.1.272252.3.579.2.173 1992 Unknown [id number] 2.16.8 40.1.558073.3.579.2.173 1992 Unknown [id number] 2.16.8 40.1.722184.3.579.2.173 1992 Unknown [id number] 2.16.8 40.1.274436.3.579.2.173 1992 Unknown [id number] 2.16.8 40.1.009250.3.579.2.173 1992 Unknown [id number] 2.16.8 40.1.437585.3.579.2.1285 1992 Unknown [id number] 2.16.8 40.1.834026.3.579.2.1285 1992 Unknown [id number] 2.16.8 40.1.610841.3.579.2.1285 1992 Unknown [id number] 2.16.8 40.1.697682.3.579.2.1285 1992 Unknown [id number] 2.16.8 40.1.783307.3.579.2.1285 1992 Unknown [id number] 2.16.8 40.1.248406.3.579.2.1285 1992 Unknown [id number] 2.16.8 40.1.027945.3.579.2.1286 1957 Medicaid [id number] 1957 Self-pay [id number] Self-pay Social History Date Type Detail Facility Tobacco smoking status [facility] Start: 06-11-2020 End: 02-27-2024 Sex Assigned At Male [facility] Start: 07-13-2022 End: 07-21-2022 Tobacco smoking status Light tobacco smoker (finding) [facility] Tobacco smoking status Never [facility] Tobacco smoking stat [facility] Tobacco smoking consumption unknown [facility] Start: 1990 Sex Assigned At Not on file [facility] Start: 02-26-2024 [facility] Start: 01-30-2024 History of tobacco use Cigarette Smo ker [facility] Start: 02-26-2024 End: 03-26-2024 Tobacco use and exposure Former smokeless tobacco user [facility] Start: 03-01-2024 End: 04-08-2024 Alcoholic beverage intake Ex-drinker (finding) [facility] Start: 06-11-2020 End: 02-27-2024 History of Social function [facility] Has the electric, [employer], oil, or water company threatened to shut off services in your home in past 12Mo No [facility] (I/We) worried fanta er (my/our) food would run out before (I/we) got money to buy more. Never true [facility] Start: 12-04-2014 Sex Male (finding) [facility] Start: 03-26-2024 Tobacco smoking stat [facility] Ex-smoker [facility] Start: 01-30-2024 History of tobacco use Current smoke r [facility] Functional Status Date Assessment Result Facility 07-21-2022 Functional Status N/A [facility] 07-13-2022 Functional Status N/A [facility] 05-12-2022 Functional Status N/A [facility] Clinical Notes 05-26-2022 to 04-08-2024 Lisa Ceballos MD - 04/08/2024 10:30 AM ESTTelephone Encounter - Diana Ledbetter [facility] - 04/05/2024 2:35 PM ESTTelephone Encounter - Diana Ledbetter [facility] - 04/05/2024 2:35 PM EST Note Date & Type Note Facility 04-08-2024 History of Present illness Narrative Ethan Donald Date of visit: 04/08/2024 Date of : 1990 Age: 33 y.o. Patient Active Problem List Diagnosis New onset seizure (CMS-HCC) Pancytopenia (CMS-HCC) Kidney stones Multiple personality disorder (CMS-HCC) Ureteral stone Allergies Allergen Reactions Naproxen Nausea And Vomiting Other Reaction(s): Unknown Current Outpatient Medications Medication Sig Dispense Refill acetaminophen (TYLENOL EXTRA STRENGTH) 500 mg tablet Take 2 tablets (1,000 mg total) by mouth every 6 (six) hours as needed for pain. ferrous sulfate 325 (65 FE) mg tablet Take 1 tablet (325 mg total) by mouth. HYDROcodone-acetaminophen (NORCO) 5-325 mg per tablet TAKE 1 TABLET BY MOUTH EVERY 6 HOURS NEEDED FOR PAIN (TAKE lowest dose possible to manage pain max DAILY amount FOUR TABLETS) ondansetron ODT (ZOFRAN ODT) 4 mg disintegrating tablet Dissolve 1 tablet (4 mg total) on tongue. predniSONE (DELTASONE) 10 mg tablet Take 4 tabs (40 mg) daily for 2 days, then 3 tabs (30 mg) daily for 2 days, then 2 tabs (20 mg) daily for 2 days, then 1 tab daily for 1 day, then Discontinue 19 tablet 0 topiramate (TOPAMAX) 50 mg tablet Take 1 tablet (50 mg) nightly for 2 weeks, then increase to 1 tablet (50 mg) twice daily 60 tablet 5 rimegepant (NURTEC ODT) 75 mg tablet,disintegrating Dissolve 1 tablet on tongue as needed (migraine). Maximum of 1 dose per 24 hours (Patient not taking: Reported on 04/08/2024) 8 tablet 5 No current facility-administered medications for this visit. Chief Complaint Patient presents with New Patient CRYSTAL GAZER SYNCOPE EKG PIEDAD, WAS IN ER , ALSO IP [facility] SCHED W/ PT History of Present Illness 33 year old male with a hx of arthritis, fibromyalgia, and multiple personality disorder , migraine without aura, recurrent syncope, pancytopenia, and functional tremor involving the right hand here for initial evaluation for syncope. Referred by his neurologist Describes 2 types: To witnessed episode by his girlfriend with tongue biting loss of consciousness convulsing and mouth phone, postictal state. And other episodes with prodromes type ringing in the ears, dizziness, double vision last 1 was this morning. He does have family history of early coronary artery disease in his father with PR in his 50s, no family history of sudden cardiac EKG normal sinus rhythm nonspecific IVCD Tobacco smoking last use 6 weeks ago Active THC smoking last use today No alcohol use Past Medical History: Diagnosis Date Arthritis 04/05/2024 Seizures (CMS-HCC) No data recorded No data recorded No data recorded Past Surgical History: Procedure Laterality Date KIDNEY STONE SURGERY 2021 KNEE SURGERY 2022 NOSE SURGERY 2001 Family History Problem Relation Age of Onset Lung disease Mother Cancer Mother Heart disease Father Social History Socioeconomic History Marital status: Single Spouse name: Not on file Number of children: Not on file Years of education: Not on file Highest education level: Not on file Occupational History Not on file Tobacco Use Smoking status: Former Types: Cigarettes Start date: 01/30/2024 Smokeless tobacco: Former Vaping Use Vaping status: Every Day Substances: THC Substance and Sexual Activity Alcohol use: Not Currently Drug use: Yes Types: Marijuana Sexual activity: Yes Partners: Female Other Topics Concern Caffeine Use No Social History Narrative Not on file Social Drivers of Health Financial Resource Strain: Not on file Food Insecurity: No Food Insecurity (04/08/2024) Hunger Screening Food Insecurity - Worry: Never True Food Insecurity - Inability: Never True Transportation Needs: No Transportation Needs (02/27/2024) Received from [employer] - Transportation Lack of Transportation (Medical): No Lack of Transportation (Non-Medical): No Physical Activity: Not on file Stress: Not on file Social Connections: Not on file Interpersonal Safety: Not on file Housing Instability: Low Risk (02/27/2024) Received from [employer] [facility] Housing Stability Vital Sign Unable to Pay for Housing in the Last Year: No Number of Times Moved in the Last Year: 1 Homeless in the Last Year: No Review of Systems Review of Systems Constitutional: Positive for malaise/fatigue. HENT: Negative. Eyes: Positive for blurred vision and double vision. Cardiovascular: Positive for chest pain. Respiratory: Negative. Endocrine: Negative. Hematologic/Lymphatic: Negative. Skin: Negative. Musculoskeletal: Positive for back pain and muscle weakness. Negative for joint swelling. Gastrointestinal: Positive for constipation. Genitourinary: Negative. Neurological: Positive for dizziness, headaches, light-headedness, loss of balance and numbness. Psychiatric/Behavioral: Negative. Allergic/Immunologic: Positive for environmental allergies. Vascular: Negative. CARDIOVASCULAR: Please review HPI. Physical Examination General appearance: Alert, oriented and cooperative. In no acute distress. Skin: Warm and dry to touch. Head: Normocephalic, without obvious abnormality, atraumatic. Ears, Nose, Mouth, Throat: Throat clear without erythema or exudate. Dentition intact. Eyes: Conjunctivae unremarkable, EOM intact. Neck: No JVD, No carotid bruit. Neck supple, trachea midline. Respiratory: Clear to auscultation bilaterally, no use of accessory muscles. Cardiovascular: RRR with normal S1 and S2 with no murmurs. Gastrointestinal: Soft, non-tender. Bowel sounds normal. Musculoskeletal: No peripheral edema. Neurologic: Oriented to time, person and place, affect appropriate. No focal/major motor defects noted. Psychiatric: Appropriate mood, memory and judgement. VITAL SIGNS: BP 118/86 (BP Site: Left Arm, BP Postition: Sitting) Pulse 80 Ht 175.3 cm (5' 9 ) Wt 99.3 kg (219 lb) SpO2 97% BMI 32.34 kg/m Orders Placed or Reconciled This Encounter Medications acetaminophen (TYLENOL EXTRA STRENGTH) 500 mg tablet Sig: Take 2 tablets (1,000 mg total) by mouth every 6 (six) hours as needed for pain. There are no discontinued medications. IMPRESSIONS/PLAN 1. Recurrent syncope - [facility] - [place] - Echo complete W/O contrast; Future - Holter monitor 24-48 hour; Future 2. Seizure ([facility]) Episodes described sound like two seizures and last one (this AM) more consistent with vasovagal syncope with all the classic prodromes and absence of postictal state. Educated about proper hydration, salt intake, counter pressure maneuvers We will get an echocardiogram for structural evaluation and 24 hour Holter Follow-up after testing Already has a neurologist managing his migraine and seizure episodes TODAYS ORDERS Orders Placed This Encounter Procedures Holter monitor 24-48 hour Echo complete W/O contrast FOLLOW UP Return in about 6 weeks (around 05/20/2024). PCP: LATRICIA GARCIA MD Referring Physician: Armando Meek PA-C [address] [place] [address] documented in this encounter [facility] [employer] 04-05-2024 Miscellaneous Notes Called patient to remind them to bring their most current copy of their medication list with them to their appt. Patient verbalizes understanding. documented in this encounter [facility] 04-05-2024 Telephone encounter Note Called patient to remind them to bring their most current copy of their medication list with them to their appt. Patient verbalizes understanding. [facility] 04-01-2024 Miscellaneous Notes Images from the original note were not included. Patient called to state the referral to the Praveen Torres MD in [place]. Patient states he has called several times and left message with a call back. When looking up the doctors information she appears to be at [facility]. Patient is looking for a doctor in [place]. Please advise Ethan Contact Information [phone] ( Provider located at both [facility] in [place]. Patient has been notified of below message and voiced understanding. Patient left a message for the [place] location and has not yet heard a response. [employer] informed patient if there is still no response by end of week to give the clinic a call back. documented in this encounter [facility] 04-01-2024 Telephone encounter Note Images from the original note were not included. Patient called to state the referral to the Praveen Torres MD in [place]. Patient states he has called several times and left message with a call back. When looking up the doctors information she appears to be at [facility]. Patient is looking for a doctor in [place]. Please advise Ethan Contact Information [phone] ( [facility] 04-01-2024 Telephone encounter Note Provider located at both [facility] and [facility] in [place]. [employer] 04-01-2024 Telephone encounter Note Patient has been notified of below message and voiced understanding. Patient left a message for the [place] location and has not yet heard a response. [employer] informed patient if there is still no response by end of week to give the clinic a call back. [employer] 03-27-2024 Miscellaneous Notes Patient stated that Armando [...] day supply preferred: unknown Pharmacy Name: [facility] If already on preferred pharmacy list - name only If new pharmacy - specify address & phone number Request was made by: PA is needed for Nurtec. Medication listed is incorrect. RN has submitted a PA on [facility]. Herrera: [id number] Patient called stating that he has been experiencing a migraine for about a month since his seizure. Patient is requesting another medication other than Nurtec due to pharmacy not prescribing medication due to a PA. Patient states that if he does not get a medication prescribed by this afternoon that he will be going to [place] [facility] for a migraine cocktail. Please Advise. Pharmacy: [facility] [id number] [place], [place] - Best Contact: Patient was informed a PA was submitted, however, the clinic is awaiting response from insurance. The patient is wanting to know if there is any other medication he can take in the meantime until a response is received for the [place] [facility] Continue with the prescribed Topiramate and I will send in a course of Prednisone in the meantime while the PA for [facility] is being completed. - [facility] Nurtec [...] over the weekend and was taken to [facility]. He was provided with a medication that aborted his migraine. Patient is unsure the name of if but will look at his records and notify clinic. Patient stated he has a slight headache still but it is much better than previously. He would still like to start Prednisone but will need script sent to [facility] in [place] instead. [facility] as stated; thank you. Continue with Topiramate. Will resend Prednisone to desired Pharmacy location. - [facility] documented in this encounter [facility] 03-27-2024 Telephone encounter Note Patient stated that [...] day supply preferred: unknown Pharmacy Name: [facility] If already on preferred pharmacy list - name only If new pharmacy - specify address & phone number Request was made by: [facility] 03-27-2024 Telephone encounter Note PA is needed for Nurtec. Medication listed is incorrect. RN has submitted a PA on [facility]. Herrera: [facility] 03-27-2024 Telephone encounter Note Patient called stating that he has been experiencing a migraine for about a month since his seizure. Patient is requesting another medication other than Nurtec due to pharmacy not prescribing medication due to a PA. Patient states that if he does not get a medication prescribed by this afternoon that he will be going to [place] [facility] for a migraine cocktail. Please Advise. Pharmacy: [id number] - [place], [place] - Best Contact: [facility] 03-27-2024 Telephone encounter Note Patient was informed a PA was submitted, however, the clinic is awaiting response from insurance. The patient is wanting to know if there is any other medication he can take in the meantime until a response is received for the Nurtec. [facility] 03-27-2024 Telephone encounter Note Continue with the prescribed Topiramate and I will send in a course of Prednisone in the meantime while the PA for [facility] ODT is being completed. - [facility] 03-27-2024 Telephone encounter Note Nurtec was denied. RN will submit an [...] over the weekend and was taken to [facility]. He was provided with a medication that aborted his migraine. Patient is unsure the name of if but will look at his records and notify clinic. Patient stated he has a slight headache still but it is much better than previously. He would still like to start Prednisone but will need script sent to [facility] in [place] instead. [facility] 03-27-2024 Telephone encounter Note Appeal [facility] as stated; thank you. Continue with Topiramate. Will resend Prednisone to desired Pharmacy location. - [facility] 03-26-2024 History of Present illness Narrative [facility] Neurology Office Note 03/25/2024 3:01 PM Patient info: Ethan Donald is a 33 y.o. male Account No.: [id number] Acct: : 1990 PCP: LATRICIA GARCIA MD [...] checking in at a Neurology office in [facility]), he suddenly lost consciousness, so EMS arrived and took him to [facility] for further evaluation. [facility] from 02/26/24-03/02/24. [facility] inpatient Neurology service was consulted. 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 IS THIS DUE TO AN ACCIDENT? -NO 2. IS THIS WORKER'S COMP? PLEASE VERIFY IF THIS IS WORKERS COMP AND DOCUMENT (We do not accept any new workers comp cases) - NO 3. WHAT INSURANCE? - MEDICAID WILL BE GETTING [facility] 4. HAVE YOU EVER BEEN SEEN BY A NEUROLOGIST BEFORE? IF YES, WHO AND WHEN? IS THIS A SECOND OPINION? - NO 5. ANY CHANCE OF NOW OR BEFORE YOUR APPOINTMENT? N/A - 6. OFFERED JOSE FOR SOONER APPOINTMENT? -YES 7. PATIENT IS SCHEDULED ON/WITH: - ARMANDO MEEK 8. WHO CALLED TO SCHEDULE APPOINTMENT? PATIENT - documented in this encounter [facility] 03-25-2024 Telephone encounter Note Please ask the following questions to the new patient that you are schedulin. IS THIS DUE TO AN ACCIDENT? -NO 2. IS THIS WORKER'S COMP? PLEASE VERIFY IF THIS IS WORKERS COMP AND DOCUMENT (We do not accept any new workers comp cases) - NO 3. WHAT INSURANCE? - MEDICAID WILL BE GETTING [facility] 4. HAVE YOU EVER BEEN SEEN BY A NEUROLOGIST BEFORE? IF YES, WHO AND WHEN? IS THIS A SECOND OPINION? - NO 5. ANY CHANCE OF NOW OR BEFORE YOUR APPOINTMENT? N/A - 6. OFFERED JOSE FOR SOONER APPOINTMENT? -YES 7. PATIENT IS SCHEDULED ON/WITH: - ARMANDO MEEK 8. WHO CALLED TO SCHEDULE APPOINTMENT? PATIENT - [facility] 03-02-2024 History of Present illness Narrative Discharge [...] per family. Pt supplied with walker from [facility]. TRANSFER - OUT REPORT: Verbal report given [...] fibromyalgia, tobacco use disorder who presented to [facility] on 02/27/2024 for evaluation of loss [...] Mendoza. 0904 Samples collected and given to knock out hand for further review. 0906 Procedure completed; patient [...] Multiple personality disorder, Fibromyalgia who presented to [facility] on 02/26 with chief complaint of loss of consciousness. Directly admitted from [facility]. Reported on 02/22 having seizure while [...] Denies fever or chills. CTH/CTA H&N on 10/28 from OSH showed no acute intracranial abnormality, [...] Service - 02/29/2024 Neurology Progress Note Date:02/29/2024 Room:[address] [place] [address] Patient Name:Ethan Donald Date of :1990 Age:33 y.o. CC: No chief complaint on file. Subjective Ethan Donald is a 33 y.o. male with a history of Multiple Personality Disorder, Fibromyalgia and Marijuana and Tobacco dependence who presented to [facility] after passing out at his psychiatrist office; transferred to [facility] on 02/26/2024 for neurology evaluation. Patient [...] time. Motor: Motor strength is normal. Coordination: Mbcpms-Wbzo-Gyhlaj Test and Heel to Solano Test normal. Psychiatric: Speech: Speech normal. Behavior: [...] Finger to nose coordination: normal Heel to solano coordination: normal Labs/Imaging/Diagnostics Labs: CBC: Recent Labs 02/28/24 0522 02/29/24 0410 WBC 2.3* 1.5* RBC 4.34* 3.98* HGB 13.1* 12.2* HCT 39.2* 36.0* MCV 90.3 90.5 PLT 107* 89* CHEMISTRIES: Recent Labs 02/27/2444402/28/2452102/29/24409 NA -- 140 139 K -- 4.1 3.7 CL -- 101 102 CO2 -- 24 BUN -- 15 13 CREATININE -- [...] New onset seizure (HCC) 02/26/2024 Yes Pancytopenia ([facility]) 02/28/2024 Yes New onset Seizure: CTH negative [...] Multiple personality disorder, Fibromyalgia who presented to [facility] on 02/26 with chief complaint of loss of consciousness. Directly admitted from [facility]. Reported on 02/22 having seizure while [...] Service - 02/28/2024 Neurology Progress Note Date:02/28/2024 Room:[address] [place] [address] Patient Name:Ethan Donald Date of :1990 Age:33 y.o. CC: No chief complaint on file. Subjective Ethan Donald is a 33 y.o. male with a history of Multiple Personality Disorder, Fibromyalgia and Marijuana and Tobacco dependence who presented to [facility] after passing out at his psychiatrist office; transferred to [facility] on 02/26/2024 for neurology evaluation. Patient [...] time. Motor: Motor strength is normal. Coordination: Khyciy-Ossb-Qdadxv Test and Heel to Solano Test normal. Psychiatric: Speech: Speech normal. Behavior: [...] Finger to nose coordination: normal Heel to solano coordination: normal Labs/Imaging/Diagnostics Labs: CBC: Recent Labs 02/26/24 1028 02/28/24 0522 WBC 4.1 2.3* RBC 4.72 4.34* HGB [...] 05 INR 1.13 APTT: Recent Labs 02/28/24 05 APTT 24.6 LIVER PROFILE: Recent Labs 02/26/24 [...] plan. Spiritual Health History and Assessment/Progress Note [facility] (P) Advance Care Planning, , , Name: Ethan Donald Age: 33 y.o. Sex: male Language: French Scientologist: None New onset seizure (HCC) Date: 02/28/2024 Total Time Calculated: (P) 35 min Spiritual Assessment continued in [facility] 4A Referral/Consult From: (P) Nurse Encounter [...] of Hope, please send discharge medication to [facility] OP Pharmacy. Thank you! Misti Tineo CPhT - Prescription Assistance ([phone]) 02/27/2024,3:31 PM Assessment: Ethan is a 33 year old male resting in his bed alone, ca.lm. tired and awake. This visit is in response to a Spiritual Consult to discuss ACP document.Please see ACP note for detail [facility] Neurodiagnostic Lawn Caretaker Worksheet EEG Date: 02/27/2024 Name: Ethan Donald : 1990 Age: 33 y.o. Sex: male CSN: [id number] Room/Location: [facility]-A Ordering Provider: Brian Gunter EEG Number: [id number] Time In: 08 Time Out: 0902/27 Total Treatment Time: 24 hour study Clinical [...] Deprived: Yes Seizures Observed: No Mentality: alert Quality Internship: Bahman Robledo 02/27/2024 [facility], Dr Del Angel. 33 yo new onset seizure, headache and syncopal episode. Wed. he had a seizure in his sleep, bit his tongue. Followed up with PCP and [facility]. At PCP appt today had a pain in head, passed out, came to ED. CT head without contrast nothing acute. No CT with contrast done because wasn't sure if he had contrast at [facility]. No ability to do MRI after 4PM. Questioning temporal arteritis , 60 mg solumedrol given, also given zofran . WBC 4.1, sed rate 17, CRP 81.9. Vials afebrile, 138/84, 92, 18, 97% on room air. documented in this encounter [facility] 03-02-2024 Hospital Discharge instructions Maureen Hampton DO - 03/02/2024 11:54 AM EDT Follow up with your family doctor in the next week. Continue to wear mask for a precaution when around family and friends. Follow up with Neurology, continue seizure precautions. Do not drive motor vehicles until you follow up and see neurology. 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 -met Finance Director Goals Time Frame for Longterm Goals : 6 weeks Longterm Goal 1: Patient to be independent and compliant with HEP. -met Finance Director Goal 2: Patient to have improved R knee AROM 0-120* with no increase in pain for improved mobility. -met (05/31/23 R knee AROM 0-130*) Finance Director Goal 3: Patient to have improved R LE strength >/=4/5 grossly all major joints and planes for improved knee stability with gait. Longterm Goal 4: Pt to report ability to walk community distances with no AD and no gait deviations or increase in pain to return to PLOF. 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 Exercises: Exercise 2: Scifit x10 min Lvl 4.5--hills Exercise 3: Step stretches 3x30 ea, SB stretch 3x30 Exercise 5: Side stepping at counter x2 laps gym --Flattrter walks - 2 big laps Exercise 6: [...] pain and improve R knee mobility. -met Finance Director Goals Time Frame for Longterm Goals : 6 weeks Longterm Goal 1: Patient to be independent and compliant with HEP. -met Finance Director Goal 2: Patient to have improved R knee AROM 0-120* with no increase in pain for improved mobility. -met (05/31/23 R knee AROM 0-130*) Finance Director Goal 3: Patient to have improved R LE strength >/=4/5 grossly all major joints and planes for improved knee stability with gait. Finance Director Goal 4: Pt to report ability to walk community distances with no AD and no gait deviations or increase in pain to return to PLOF. -progressing Minutes Tracking: Time In: 1515 Time Out: 1558 Minutes: 43 Timed Code Treatment Minutes: 41 Minutes Manjit Jerome Maurilio Date: 06/12/2023 documented in this encounter [facility] 07-21-2022 Hospital Discharge instructions Patient Education 07/21/2022 [...] include: ?Spinach. ?Rhubarb. ?Beets. ?Potato chips and namibian fries. ?Nuts. If you regularly take a diuretic medicine, make sure to eat at least 1 2 fruits or vegetables high in potassium each day. These include: ?Avocado. ?Banana. ?Steuben, prune, carrot, or tomato juice. ?Baked potato. [...] Casseroles. Pizza. Lasagna. Frozen meals. Potato chips. Chinese fries. Summary You can reduce your risk [...] 08/12/2011 Document Revised: 08/07/2019 Document Reviewed: 03/28/2017 [employer] Patient Education 2020 Dispop. Follow Up Care 07/20/2022 16:11:07 With:Handy WILEY, DANA Llamas, URO Address: When: Unknown [facility] 07-13-2022 Hospital Discharge instructions Patient Education 07/13/2022 [...] include: ?Spinach. ?Rhubarb. ?Beets. ?Potato chips and namibian fries. ?Nuts. If you regularly take a diuretic medicine, make sure to eat at least 1 2 fruits or vegetables high in potassium each day. These include: ?Avocado. ?Banana. ?Steuben, prune, carrot, or tomato juice. ?Baked potato. [...] Casseroles. Pizza. Lasagna. Frozen meals. Potato chips. Chinese fries. Summary You can reduce your risk [...] 08/12/2011 Document Revised: 08/07/2019 Document Reviewed: 03/28/2017 [employer] Patient Education 2020 Dispop. Follow Up Care 05/23/2022 10:22:28 With:Handy WILEY, Shirley Menchaca, URL, URO Address: When: Unknown [facility] 05-26-2022 Note [id number]:[id number] [facility] Evaluation + Plan note Future Appointments Appointment Date:07/13/2022 09:00:00 AM Scheduled Provider:Shirley Murrell MD Location:[facility] Appointment Type:URO Office Visit [facility] Evaluation note Diagnosis New onset seizure (HCC)- Primary Other convulsions Pancytopenia (HCC) Other pancytopenia Hip pain, unspecified laterality Pancytopenia (HCC) Other pancytopenia documented in this encounter [facility]* Diagnosis Seizure (CMS-HCC)- Primary Other convulsions Migraine without aura and without status migrainosus, not intractable Status migrainosus Variants of migraine, not elsewhere classified, without mention of intractable migraine without mention of status migrainosus Recurrent syncope Pancytopenia (CMS-HCC) Functional tremor [facility] Diagnosis Status migrainosus- Primary Variants of migraine, not elsewhere classified, without mention of intractable migraine without mention of status migrainosus [facility] Diagnosis Recurrent syncope- Primary Seizure (CMS-HCC) Other convulsions [facility] Narrative No data available for this section [facility] No data available for this section [facility] Center[facility]ructionsNot on filedocumented in this encounter [facility] on filedocumented in this encounter [facility] on filedocumented in this encounter [facility] on filedocumented in this encounter [facility] on filedocumented in this encounter [facility] on filedocumented in this encounter [facility] No data available for this section [facility] Summary Purpose Family History No Family History Records FoundNo Family History Records FoundNo Family History Records FoundNo Family History Records FoundNo Family History Records Found Advance Directives No Advanced Directives Records FoundDocuments on File Type Date Recorded 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 ACP-Advance Directive 02/29/2024 2:09 PM Date Activated Date Inactivated Comments 02/27/2024 12:32 AM Healthcare Agents on File Name Relationship Healthcare Agent Relationshi p Communication Daisy Araujo Girlfriend Primary Decision Maker Hiren Donald Parent Secondary Decision Maker Additional Source Comments Patient Care team informatio n (unrecognized section and content) Street Commissioner Relationship Specialty Start Date End Date Latricia Garcia MD [address] [place] [address] PCP - General Family Medicine 02/16/23 Street Commissioner Relationship Specialty Start Date End Date Latricia Garcia MD [address] [place] [address] PCP - General Family Medicine 02/16/23 Street Commissioner Relationship Specialty Start Date End Date Latricia Garcia MD [address] [place] [address] PCP - General Family Medicine 02/16/23 Street Commissioner Relationship Specialty Start Date End Date Latricia Garcia MD PCP - General 09/15/17 Street Commissioner Relationship Specialty Start Date End Date Latricia Garcia MD PCP - General 09/15/17 Street Commissioner Relationship Specialty Start Date End Date Latricia Garcia MD PCP - General 09/15/17 Street Commissioner Relationship Specialty Start Date End Date Latricia Garcia MD PCP - General 09/15/17 Street Commissioner Relationship Specialty Start Date End Date Latricia Garcia MD PCP - General 09/15/17 Street Commissioner Relationship Specialty Start Date End Date Latricia Gacria MD PCP - General 09/15/17 Street Commissioner Relationship Specialty Start Date End Date Latricia Garcia MD PCP - General 09/15/17 (unrecognized sect ion and content) No Status Records FoundNo Status Records FoundNo Status Records FoundNo Status Records FoundNo Status Records Found INFORMATION SOURCE (unrecogn ized section and content) DATE CREATED AUTHOR 07/31/2022 [facility] DATE CREATED AUTHOR AUTHOR'S ORGANIZ ATION 09/13/2022 [facility] DATE CREATED AUTHOR AUTHOR'S ORGANIZ ATION 02/28/2024 [facility] DATE CREATED AUTHOR AUTHOR'S ORGANIZ ATION 03/23/2024 [facility] DATE CREATED AUTHOR AUTHOR'S ORGANIZ ATION 04/14/2024 [facility] Reason for Visit (unrecogniz ed section and content) Specialty Diagnoses / Procedures Referred By Genoveva bowers Referred To Contact Diagnoses New onset seizure (HCC) new onset seizure [facility] [address] [place] [address] [facility] [id number] Referral ID Status Reason Start Date Expiration Date Visits Re quested Visits Authorized [id number] 1 1 Reason Onset Date Comments REFERRAL 03/25/2024 Reason Comments Seizures Patient is here toda y as a new patient for dx of Seizures. Patient states that he had a seizure about a month ago and has been having episodes of passing out ever since. Specialty Diagnoses / Procedures Referred By Genoveva bowers Referred To Contact Neurology Diagnoses Seizure ([facility]-HCC) Latricia Garcia MD [address] [place] [address] Phone: tel:[phone] fax: [facility] [address] [place] [address] Phone: tel: fax: Referral ID Status Reason Start Date Expiration Date Visits Requested Visits Authorized [id number] Pending Review Specialty Services Required 03/20/2025 1 1 Reason Onset Date Comments information wrong on referral 04/01/2024 Reason Onset Date Comments prior authorization 03/27/2024 Reason Comments New Patient CRYSTAL GAZER SYNCOPE EKG BELLE HILARY, WAS IN ER , ALSO IP [facility] SCHED W/ PT Specialty Diagnoses / Procedures Referred By Genoveva bowers Referred To Contact Cardiology Diagnoses Recurrent syncope Armando Meek PA-C [address] [place] [address] Phone: tel: fax: [facility] [address] [place] [address] Phone: tel: fax: Referral ID Status Reason Start Date Expiration Date Visits Requested Visits Authorized [id number] Pending Review Specialty Services Required 4 03/26/2025 1 1 Ordered Prescriptions (unrec ognized section [...] Rebecca Humphreys RN) 075 (Given - Provider: Daphne Alonzo, [...] Joanna Adame RN)1633 (Given - Provider: Joanna Adame RN) 0004 (Given - Provider: Sol Landis, MARQUISE)0630 (Given - Provider: Nikki Morris, MARQUISE)1301 (Given - Provider: Joanna Adame RN)2006 (Given - Provider: Rebecca Humphreys, RN) 0210 (Canceled Entry - Provider: Rebecca Humphreys, RN)0256 (Given - Provider: Rebecca Humphreys, RN)1116 (Given - Provider: Daphne Alonzo, MARQUISE) [...] Morris, MARQUISE)1616 (See Alternative - Provider: Joanna Adame RN) [...] BE BASED ON THE PRIMARY CLINICAL RECORDS. [employer] provides no warranty or guarantee of the accuracy or completeness of information in this document.
[2024-04-14 19:12] VITALS: BP 141/92; PULSE 84; TEMP 36.7; O2SAT 100; BMI 32.0
--- NOTE | 2024-04-14 19:22 | PC.NURSE ---
patient complains of a migraine on and off for the past 2 or 3 months ago, this patient voices no other that this migraine, this patient shows no signs of distress
--- NOTE | 2024-04-14 19:24 | ED.GENADUL1 ---
HPI HPI - General Adult General Chief complaint: Headache Stated complaint: headache Time Seen by Provider: 04/14/24 19:09 Source: patient Mode of arrival: walk-in Limitations: no limitations History of Present Illness HPI narrative: This 33-year old male with a history of migraine headaches who has recently developed seizures that are described as him becoming unresponsive but not convulsing without tongue biting or urinary incontinence presents for evaluation of a migraine headache. The patient has recently had an MRI and several CT scans. He has been seen by cardiology and neurology as well as his family physician. He is currently on Topamax. He was also given a prescription for Nurtec but states he has not gotten the Nurtec yet because it has to be preapproved by his insurance company. He states he was in [facility] 4 days ago with a migraine headache. He was treated and released. His headache returned today with photophobia nausea and vomiting. He states he cannot keep anything down. He does not have any fever. He has no neck pain or stiffness. This is a typical migraine for him which is global in nature, throbbing associated with photophobia nausea vomiting. Related Data Home Medications ?Medication ?Instructions ?Recorded ?Confirmed ferrous sulfate 325 mg (65 mg 325 mg PO DAILY 03/07/24 04/10/24 iron) tablet (FeroSul) lamotrigine 25 mg tablet mg 04/01/24 rizatriptan 10 mg tablet mg 04/01/24 topiramate 50 mg tablet mg 04/01/24 hydrocodone 5 mg-acetaminophen 325 tab 04/10/24 mg tablet ondansetron 4 mg disintegrating mg 04/10/24 tablet prednisone 10 mg tablet mg 04/10/24 Allergies Allergy/AdvReac Type Severity Reaction Status Date / Time naproxen Allergy Unknown Abdominal Verified 04/14/24 19:15 Pain Opioid HPI Opioid Management Most Recent Opioid Data: Last Pain Scale 10 04/14/24 19:48 04/14/24 Last ED Pain Assessment 04/10/24 04:24 Ur Phencyclidine Scrn Negative (NEGATIVE) 04/10/24 01:35 04/10/24 Review of Systems ROS Status of ROS 10 or more systems reviewed and unremarkable except as noted in history and below PFSH PFSH Social History Smoking status: Current every day smoker Little interest or pleasure in doing things: not at all Feeling down, depressed, or hopeless: not at all Exam Narrative Exam Narrative: Vital signs and Nursing Notes reviewed: Patient is afebrile with a normal pulse, blood pressure is elevated at 141/92, he is not hypoxic with pulse ox of 100% on room air General: Awake, alert, oriented, no acute distress, lying comfortably on the stretcher with dark sunglasses on in his head covered with his hoodie, GCS 15, no respiratory distress, no active vomiting HEENT: Normocephalic atraumatic, mucous membranes are moist and pink, eyes are clear, normal conjunctiva, vision is grossly intact, posterior pharynx is normal in appearance. Neck: Supple, no meningeal signs, no anterior or posterior cervical lymphadenopathy Chest: Lungs are clear to auscultation with good air entry, there is no wheezing rhonchi or rales appreciated no accessory muscle use, patient is speaking in complete sentences-no chest wall tenderness to palpation CVS: Regular rate and rhythm S1-S2, no murmurs rubs or gallops, pulses are brisk and equal bilaterally ABD: Soft, nondistended, nontender, no rebound guarding or rigidity, bowel sounds are normal, no pulsatile masses appreciated Extremities: Moving all extremities, no lower extremity tenderness or swelling noted, negative Homans' sign, pulses are brisk and equal bilaterally Skin: Normal in appearance without rash,pallor, petechiae or purpura Neuro: No focal deficits, speech is clear, 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 is 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, upper and lower extremity strength and sensation is intact, he is ambulatory with a steady gait, no seizure activity appreciated during my exam Constitutional Vital Signs, click to edit/add: Last Vital Signs Temp 98.1 F 04/14/24 19:12 Pulse 68 04/14/24 21:07 Resp 17 04/14/24 21:07 BP 112/62 04/14/24 21:07 Pulse Ox 96 04/14/24 21:07 O2 Del Method Room Air 04/14/24 19:12 Course Vital Signs Vital signs: Vital Signs Temperature 98.1 F 04/14/24 19:12 Pulse Rate 84 04/14/24 19:12 Respiratory Rate 18 04/14/24 19:12 Blood Pressure 141/92 H 04/14/24 19:12 Pulse Oximetry 100 04/14/24 19:12 Oxygen Delivery Method Room Air 04/14/24 19:12 Temperature 98.1 F 04/14/24 19:12 Pulse Rate 68 04/14/24 21:07 Respiratory Rate 17 04/14/24 21:07 Blood Pressure 112/62 04/14/24 21:07 Pulse Oximetry 96 04/14/24 21:07 Oxygen Delivery Method Room Air 04/14/24 19:12 Medical Decision Making [facility] Narrative Medical decision making narrative: This 33-year-old male with history of migraine headaches who was recently started having seizures which he states have been diagnosed as pseudoseizures presents for evaluation of migraine headache that he states he has had for the past 2-1/2 months after having a seizure. He has had several CT scans and an MRI as well as a workup by cardiology and Neurology:. Today he presents for ongoing headache which is throbbing in nature associated with nausea and vomiting. He has not had any fever. There is no thunderclap presentation of the headache. He states he was recently seen by pediatric oncologist and told that his blood work is normalizing. The patient's neuroexam is normal. His vital signs are stable. An IV was placed and he was medicated with IV Compazine, Decadron, IV fluids and Toradol. Routine labs are ordered and are reviewed. He has a normal white count and hemoglobin. Electrolytes are normal. He does have a mild elevation in his BUN and creatinine which is consistent with his baseline. Liver function tests are all normal. In reevaluation his states his headache is now a 7. I asked him what medications typically help his migraine headaches and he states that Benadryl is typically involved I will add 12.5 mg of Benadryl to his medications. He received the IV Benadryl and feels comfortable being discharged home at this time. His headache is under control enough for him to tolerate it enough to go home and get some rest. Lab Data Labs: Lab Results 04/14/24 Range/Units 19:30 WBC 6.2 (4.0-11.0) 10^3/uL RBC 4.62 L (4.70-6.10) 10^6/uL Hgb 14.5 (14.0-18.0) g/dL Hct 42.4 (42.0-54.0) % MCV 91.8 (80.0-94.0) fL MCH 31.4 (25.9-34.0) pg MCHC 34.2 (29.9-35.2) g/dL RDW 13.6 (11.0-15.0) % Plt Count 250 (150-450) 10^3/uL MPV 9.3 L (9.5-13.5) fL Neut % (Auto) 52.1 (43.0-75.0) % Lymph % (Auto) 36.6 (20.5-60.0) % King % (Auto) 7.6 (1.7-12.0) % Eos % (Auto) 2.9 (0.9-7.0) % Baso % (Auto) 0.6 (0.2-2.0) % Neut # (Auto) 3.2 (1.4-6.5) 10^3/uL Lymph # (Auto) 2.3 (1.2-3.8) 10^3/uL King # (Auto) 0.5 (0.3-0.8) 10^3/uL Eos # (Auto) 0.2 (0.0-0.7) 10^3/uL Baso # (Auto) 0.0 (0.0-0.1) 10^3/uL Abs Immat Gran (auto) 0.01 (0.00-0.03) 10^3/uL Imm/Tot Granulo (auto) 0.2 (0.0-0.5) % Sodium 138 (136-145) mmol/L Potassium 3.6 (3.5-5.1) mmol/L Chloride 105 (98-107) mmol/L Carbon Dioxide 23.8 (21.0-32.0) mmol/L Anion Gap 12.8 BUN 19.0 H (7.0-18.0) mg/dL Creatinine 1.43 H (0.70-1.30) mg/dL Est GFR ( Amer) >60 (>=60 mL/min/1.73m^2) Est GFR (Non-Af Amer) 58 L (>=60 mL/min/1.73m^2) BUN/Creatinine Ratio 13.3 Glucose 120 H (74-106) mg/dL Calcium 8.9 (8.5-10.1) mg/dL Total Bilirubin 0.6 (0.2-1.0) mg/dL AST 9 L (15-37) U/L ALT 27 (16-63) U/L Alkaline Phosphatase 77 (46-116) U/L Total Protein 7.5 (6.4-8.2) g/dL Albumin 4.1 (3.4-5.0) g/dL Globulin 3.4 g/dL Albumin/Globulin Ratio 1.2 Discharge Plan Discharge Chief Complaint: Headache Clinical Impression: Headache, migraine Patient Disposition: Home, Self-Care Prescriptions / Home Meds: No Action prednisone 10 mg tablet hydrocodone-acetaminophen 5-325 mg tablet ondansetron 4 mg tablet,disintegrating ferrous sulfate [FeroSul] 325 mg (65 mg iron) tablet 325 mg PO DAILY rizatriptan 10 mg tablet lamotrigine 25 mg tablet topiramate 50 mg tablet Print Language: Estonian Instructions: Migraine Headache (ED) Referrals: Jc Guzman MD [Primary Care Provider] - 1 week
[2024-04-14 19:42] LABS: Basophils Percent Auto 0.6 % (0.2-2.0); Eosinophils Absolute Auto 0.2 10^3/uL (0.0-0.7); Eosinophils Percent Auto 2.9 % (0.9-7.0); Hematocrit 42.4 % (42.0-54.0); Hemoglobin 14.5 g/dL (14.0-18.0); Immature Granulocytes Abs Auto 0.01 10^3/uL (0.00-0.03); Immature Granulocytes Pct Auto 0.2 % (0.0-0.5); Lymphocytes Absolute Auto 2.3 10^3/uL (1.2-3.8); Lymphocytes Percent Auto 36.6 % (20.5-60.0); Mean Corpuscular HGB Conc 34.2 g/dL (29.9-35.2); Mean Corpuscular Hemoglobin 31.4 pg (25.9-34.0); Mean Corpuscular Volume 91.8 fL (80.0-94.0); Mean Platelet Volume 9.3 fL (9.5-13.5); Monocytes Absolute Auto 0.5 10^3/uL (0.3-0.8); Monocytes Percent Auto 7.6 % (1.7-12.0); Neutrophils Absolute Auto 3.2 10^3/uL (1.4-6.5); Neutrophils Percent Auto 52.1 % (43.0-75.0); Platelet Count 250 10^3/uL (150-450); Red Blood Count 4.62 10^6/uL (4.70-6.10); Red Cell Distribution Width 13.6 % (11.0-15.0); White Blood Count 6.2 10^3/uL (4.0-11.0)
[2024-04-14] MEDS: PROCHLORPERAZINE 10 MG/2 ML VIAL IV (19:48)
[2024-04-14] MEDS: KETOROLAC TROMETHAMINE 30 MG/ML VIAL IVP (19:48)
[2024-04-14] MEDS: 0.9 % SODIUM CHLORIDE 1,000 ML 1000 ML IV (19:48)
[2024-04-14] MEDS: DEXAMETHASONE SOD PHOS 10 MG/ML VIAL IV (19:48)
[2024-04-14 19:58] LABS: Alanine Aminotransferase 27 U/L (16-63); Albumin Globulin Ratio 1.2; Albumin Level 4.1 g/dL (3.4-5.0); Alkaline Phosphatase 77 U/L (46-116); Anion Gap 12.8; Aspartate Amino Transferase 9 U/L (15-37); BUN Creatinine Ratio 13.3; Bilirubin Total 0.6 mg/dL (0.2-1.0); Calcium 8.9 mg/dL (8.5-10.1); Carbon Dioxide 23.8 mmol/L (21.0-32.0); Chloride 105 mmol/L (98-107); Estimated GFR (African America >60 (>=60 mL/min/1.73m^2); Estimated GFR (Non-African Ame 58 (>=60 mL/min/1.73m^2); Globulin 3.4 g/dL; Glucose 120 mg/dL (74-106); Potassium 3.6 mmol/L (3.5-5.1); Sodium 138 mmol/L (136-145); Total Protein 7.5 g/dL (6.4-8.2)
[2024-04-14] MEDS: DIPHENHYDRAMINE HCL 50 MG/ML VIAL 12.5 MG IV (21:04)
[2024-04-14 21:07] VITALS: BP 112/62; PULSE 68; O2SAT 96
--- NOTE | 2024-04-14 21:08 | PC.NURSE ---
patient voices headache is at 7/10, patient resting with his eyes closed, patient voices no concerns and shows no signs of ditress
== END 2024-04-14 21:19 | disposition home or self-care (01) ==
PROVIDERS: Emergency Provider Emergency Medicine; PCP Family Medicine
DX: G43.909 Migraine, unspecified, not intractable, without status migrainosus (principal); R56.9 Unspecified convulsions; F17.200 Nicotine dependence, unspecified, uncomplicated
CPT/HCPCS: 36415; 80053; 85025; 96361; 96374; 96375; 99284; J0780; J1100; J1200; J1885

== ENCOUNTER 2024-05-03 17:12 | Emergency (ER) | payer MEDICAID, SELFPAY ==
[2024-05-03] VITALS (8 sets, daily range): BP systolic 122–131; BP diastolic 76–79; PULSE 58–82; TEMP 36.6; O2SAT 93–97; BMI 31.7
--- OUTSIDE RECORDS SUMMARY | 2024-05-03 17:31 | XMS_ITS | CCD ---
Author Organization [facility] Care Team Providers Care School Teacher Name Role Phone Latricia Garcia Primary Care Physician Shirley Murrell Attending Unavailable LueShirley MJoselin Referring [...] Consulting Unavailable LUE .SHIRLEY Consulting Unavailable JADA PERIERA Consulting Unavailable MAUREEN GARDNER Consulting Unavailable HELGA [...] Unavailable Latricia Garcia MD Primary Care Provider [phone] MICHELLE, JON E Referring Unavailable HOY, [...] Unavailable Latricia Garcia MD Primary Care Provider [phone] ARMANDO MEEK Attending Unavailable HOY, LATRICIA M [...] LATRICIA M Primary Care Unavailable ARMANDO MEEK Attending Unavailable HOY, LATRICIA M Referring Unavailable HOY, LATRICIA M Primary Care Unavailable Allergies Allergy Classification Reported Allergen(s) Allergy Type Date of Onset Reaction(s) Facility (15 sources) Naproxen; Translations: [naproxen] Drug Allergy 3 Unknown (qualifier value), Nausea And Vomiting [facility] (1 source) Naproxen Drug Allergy [facility] Repository Medications Current Medications Medication Drug Class(es) Dates Sig (Normalized) Sig (Original) Acetaminophen (3 sources) Start: 02-27-2024 acetaminophen (TYLENOL) tablet 650 mg take 2 tablets by mo uth every six hours as needed for pain acetaminophen (TYLENOL EXTRA STRENGTH) 5 00 mg tablet Take 2 tablets (1,000 mg total) by mouth every 6 (six) hours as needed for pain. Active acetaminophen 325 mg / HYDROcodone bitartrate 5 mg oral tablet (7 sources) Opioid Agonist Start: 03-02-2024 End: 03-05-2024 [...] a CrCl celecoxib 200 mg oral capsule (5 sources) Nonsteroidal Anti-inflammatory Drug celecoxib (CeleBREX) 200 mg capsule Take 1 capsule (200 mg total) by mouth. Active cephalexin 500 mg oral tablet (3 sources) Cephalosporin Antibacterial Start: 02-22-2024 take 1 tablet by mouth in the morning cephalexin 500 mg tablet Take 500 mg by mouth in the morning and 500 mg before bedtime. 02/22/2024 Active Start: 05-12-20[address] [facility] every twenty-four hours Keflex 500 mg Cap 500 mg = 1 cap(s), Oral, q24hr, Take 1 pill the day before the procedure and 1 pill after the procedure., # 2 cap(s), Refills(s) 0, Pharmacy: [id number] Start Date: 05/12/22 Status: Ordered 0.4 [...] unheld ferrous sulfate 325 mg oral tablet (8 sources) Start: 03-02-2024 take 1 tablet by mouth once daily at breakfast ferrous sulfate (IRON 325) 325 (65 Fe) MG tablet Take 1 tablet by mouth daily (with breakfast) 30 tablet 1 03/02/2024 Active Start: 02-29-2024 ferrous sulfat e 325 (65 FE) mg tablet Take 1 tablet (325 mg total) by mouth. 03/02/2024 Active gabapentin 600 mg oral tablet (5 sources) Anti-epileptic Agent gabapentin (NEURONTIN) 600 mg tablet Take 0.5 tablets (300 mg total) by mouth. Active ketorolac tromethamine 10 mg oral tablet (5 sources) Nonsteroidal Anti-inflammatory Drug, Cyclooxygenase Inhibitor Start: 03-02-20 take 1 tablet by mouth every six hours as needed ketorolac (TORADOL) 10 mg tablet Take 1 tablet (10 mg total) by mouth every 6 (six) hours as needed. 03/02/2024 Active Start: 02-28-2024 End: 03-04-2024 30 [...] (1 source) Benzodiazepine Start: 02-27-2024 4 mg, IntraVEN ous, EVERY 5 MIN PRN, Starting on Mon02/27/24 at 0032, Until Discontinued, Seizures, May repeat dose (4 mg) X 1 for seizures lasting more than 5 minutes. Notify provider if administered for seizure. methocarbamol 750 mg oral tablet (5 sources) Muscle Relaxant Start: 02-12-2024 take 1 tablet by mouth every six hours as needed methocarbamoL (ROBAXIN) 750 mg tablet Take 1 tablet (750 mg total) by mouth every 6 (six) hours as needed. 02/12/2024 Active End: 03-02-2024 take 1 tablet by mouth twice daily methocarbamol (ROBAXIN) 750 MG tablet Take 1 tablet by mouth 2 times daily 03/02/2024 Discontinued (Stop Taking at Discharge) 24 hr nicotine 0.583 mg/hr transdermal system (3 sources) Cholinergic Nicotinic Agonist Start: 03-03-2024 apply 1 dose transdermal route every hour nicotine (NICODERM CQ) 14 mg/[address] 1 patch on the skin. 03/03/2024 Active Start: 03-03-2024 apply 1 dose transde rmal route once daily nicotine (NICODERM CQ) 14 [...] for handling and disposal. ondansetron 4 mg oral tablet (9 sources) Serotonin-3 Receptor Antagonist Start: 03-08-2024 take 1 tablet by mouth twice daily as needed ondansetron (ZOFRAN) 4 mg tablet Take 1 tablet (4 mg total) by mouth 2 (two) times a day as needed. 03/08/2024 Active Start: 01-31-2024 ondansetron OD T (ZOFRAN ODT) 4 mg disintegrating tablet Dissolve [...] pantoprazole 20 mg delayed release oral tablet (5 sources) Proton Pump Inhibitor pantoprazole (PROTONIX) 20 mg EC tablet Take 2 tablets (40 mg total) by mouth. Active polyethylene glycol 3350 91739 mg powder for oral solution (3 sources) Osmotic Laxative Start: 02-27-2024 End: 05-03-2024 polyethylene glycol (GLYCOLAX) 17 gram packet Take 17 g by mouth. 03/02/2024 05/03/2024 Active Potassium Chloride (1 source) Start: 02-27-2024 potassium chloride (KLOR-CON M) extended release tablet 40 mEq predniSONE 10 mg oral tablet (5 sources) Start: 04-02-2024 End: 04-03-2024 predniSONE (DELTASONE) 10 mg tablet Indications: Status migrainosus Take 4 tabs (40 mg) daily for 2 days, then 3 tabs (30 mg) daily for 2 days, then 2 tabs (20 mg) daily for 2 days, then 1 tab daily for 1 day, then Discontinue 19 tablet 04/03/2024 Active rimegepant 75 mg disintegrating oral tablet (6 sources) Start: 03-26-2024 rimegepant (NURTEC ODT) 75 mg tablet,disintegratin g Indications: Migraine without aura and without status [...] pharmacy (Rx) Start Date: 07/21/22 Status: Ordered tiZANidine 4 mg oral tablet (1 source) Central alpha-2 Adrenergic Agonist Start: 02-01-2024 tiZANidine (ZANAFLEX) 4 mg tablet Take 2 tablets (8 mg total) by mouth. 02/01/2024 Active topiramate 50 mg oral tablet (6 sources) Start: 03-26-2024 topiramate (TOPAMAX) 50 mg [...] Caro 02/29/2024 at 1438 until manually unheld 2 ml midazolam 1 mg/ml injection (1 [...] Onset: 07-14-2022 Episodic Calculus of urinary tract (20 sources) Ureteric stone; Translations: [Calculus of ureter] Onset: 07-06-2022 Episodic Deficiency and other anemia (9 sources) Pancytopenia; Translations: [Other pancytopenia] Onset: 02-28-2024 03-02-2024 Chronic Deficiency and other anemia (2 sources) Other pancytopenia; Translations: [Other pancytopenia] Onset: 02-28-2024 Chronic Diseases of white blood cells (1 source) Elevated white blood cell count, unspecified; Translations: [ELEVATED WHITE BLOOD CELL COUNT UNS] Onset: 07-14-2022 Chronic Epilepsy; convulsions (11 sources) Unspecified convulsions; Translations: [Seizure] Onset: 02-26-2024 02-26-2024 Episodic Fluid and electrolyte disorders (1 source) Dehydration; Translations: [DEHYDRATION] Onset: 07-14-2022 Episodic Headache; including migraine (6 sources) Migraine without aura, not refractory ; Translations: [Migraine without aura, not intractable, without status migrainosus] Onset: 03-26-2024 03-26-2024 Chronic Headache; including migraine (2 sources) Headache; including migraine; Translations: [Headache, unspecified] Onset: 02-26-2024 Miscellaneous mental health disorders (5 sources) Multiple personality disorder; 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 [...] symptoms; Translations: [Tremor, unspecified] 03-26-2024 Episodic Other nervous system disorders (1 source) Tremor, unspecified; Translations: [Tremor, unspecified] Onset: 04-19-2024 Episodic Other non-traumatic joint disorders (1 source) [...] initial encounter] Onset: 06-09-2023 Episodic Mood disorders (6 sources) Mood disorders Onset: 03-26-2024 03-26-2024 Osteoarthritis (5 sources) Arthritis; Translations: [Unspecified osteoarthritis, unspecified site] Onset: 04-05-2024 Resolved: 04-05-2024 07-13-2022 Chronic Residual codes; unclassified (1 source) Other specified postprocedural states; Translations: [Other specified postprocedural states] Onset: 03-13-2023 Episodic Results Test Name Value Interpretation Reference Range Facility BASIC METABOLIC PANLon 04-11 Anion gap [Moles/Vol] 7 mmol/L Normal 5-15 [facility] Comment on above: Performed By: #### C WON TORRES, 29199-0, 21059-2 #### [facility] ([id number]) [address] [place] [address] 51910 Calcium [Mass/Vol] 9.2 mg/dL Normal 8.5-10.5 [facility] Comment on above: Performed By: #### Irene TORRES BMP, , 06198-9 #### [facility] ([id number]) [address] [place] [address] 18791 Chloride [Moles/Vol] 107 mmol/L Normal 98-109 [facility] Comment on above: Performed By: #### C BRIAN BMP, 15835-4, 64319-0 #### [facility] ([id number]) [address] [place] [address] 50713 CO2 [Moles/Vol] 23 mmol/L Normal 22-32 [facility] Comment on above: Performed By: #### Irene TORRES BMP, 50189-5, 76683-5 #### [facility] ([id number]) [address] [place] [address] 95264 Creatinine [Mass/Vol] 1.20 mg/dL Normal 0.70-1.20 [facility] Comment on above: Result Comment: METH OD TRACEABLE TO IDMS STANDARD Performed By: #### C WON TORRES, , 96207-5 #### [facility] ([id number]) [address] [place] [address] 82694 GFR/1.73 sq M.predicted among non-blacks MDRD (S/P/Bld) [Vol rate/Area] 83 mL/min/{1.73_m2} Normal >59 [facility] Comment on above: Result Comment: Reported eGFR is based on the CKD-EPI 2020 equation that does not use a race coefficient. Performed By: #### C WON TORRES, , 94746-6 #### [facility] ([id number]) [address] [place] [address] 47842 Glucose [Mass/Vol] 95 mg/dL Normal 65-99 [facility] Comment on above: Performed By: #### C WON TORRES, , 70538-9 #### [facility] ([id number]) [address] [place] [address] 50559 Potassium [Moles/Vol] 3.7 mmol/L Normal 3.5-5.0 [facility] Comment on above: Performed By: #### C WON TORRES, , 55647-1 #### [facility] ([id number]) [address] [place] [address] 99986 Sodium [Moles/Vol] 137 mmol/L Normal 134-146 [facility] Comment on above: Performed By: #### C BRIAN, BMP, , 77629-4 #### [facility] ([id number]) [address] [place] [address] 77495 Urea nitrogen [Mass/Vol] 18 mg/dL Normal 5-23 [facility] Comment on above: Performed By: #### C BCA, BMP, , 05249-2 #### [facility] ([id number]) [address] [place] [address] 99245 CBC AND AUTO DIFFon 1212-20 24 ABSOLUTE BASOPHIL 0.1 X10E9/L Normal 0.0-0.2 [facility] Comment on above: Performed By: #### C BCA, BMP, , 82688-2 #### [facility] ([id number]) [address] [place] [address] 21036 ABSOLUTE NEUTROPHIL 3.6 X10E9/L Normal 1.5-6.6 [facility] Comment on above: Performed By: #### Irene BCA, BMP, , 48626-6 #### [facility] ([id number]) [address] [place] [address] 73821 Basophils/100 WBC (Bld) 0.8 % Normal [facility] Comment on above: Performed By: #### C BCA, BMP, , 92959-7 #### [facility] ([id number]) [address] [place] [address] 03277 Eosinophils (Bld) [#/Vol] 0.2 10*3/uL Normal 0.0-0.4 [facility] Comment on above: Performed By: #### C BCA, BMP, , 57439-1 #### [facility] ([id number]) [address] [place] [address] 16408 Eosinophils/100 WBC (Bld) 2.3 % Normal [facility] Comment on above: Performed By: #### Irene BCA, BMP, , 05763-1 #### [facility] ([id number]) [address] [place] [address] [place] [address] Erythrocyte distribution width (RBC) [Ratio] 14.5 % Normal 11.5-15.0 [facility] Comment on above: Performed By: #### C WON TORRES, , 00027-1 #### [facility] ([id number]) [address] [place] [address] 31185 Hematocrit (Bld) [Volume fraction] 40.8 % Normal 39-49 [facility] Comment on above: Performed By: #### C WON TORRES, , 57888-2 #### [facility] ([id number]) [address] [place] [address] 43610 Hemoglobin (Bld) [Mass/Vol] 14.0 g/dL Normal 13.0-17.0 [facility] Comment on above: Performed By: #### WON Bonilla BCA, , 92634-0 #### [facility] ([id number]) [address] [place] [address] 21838 Lymphocytes (Bld) [#/Vol] 2.3 10*3/uL Normal 1.0-3.5 [facility] Comment on above: Performed By: #### WON Bonilla BCA, , 04724-5 #### [facility] ([id number]) [address] [place] [address] 26491 Lymphocytes/100 WBC (Bld) 35.0 % Normal [facility] Comment on above: Performed By: #### WON Bonilla BCA, , 48184-6 #### [facility] ([id number]) [address] [place] [address] 55909 MCH (RBC) [Entitic mass] 31.2 pg Normal 27-34 [facility] Comment on above: Performed By: #### WON Bonilla BCA, , 56773-5 #### [facility] ([id number]) [address] [place] [address] 71508 MCHC (RBC) [Mass/Vol] 34.2 g/dL Normal 32-36 [facility] Comment on above: Performed By: #### C BRIAN, BMP, , 80755-9 #### [facility] ([id number]) [address] [place] [address] 31040 MCV (RBC) [Entitic vol] 91 fL Normal 80-100 [facility] Comment on above: Performed By: #### Irene TORRES, BMP, , 30236-7 #### [facility] ([id number]) [address] [place] [address] 90601 Monocytes (Bld) [#/Vol] 0.5 10*3/uL Normal 0-0.9 [facility] Comment on above: Performed By: #### Irene TORRES, BMP, , 64815-5 #### [facility] ([id number]) [address] [place] [address] 54023 Monocytes/100 WBC (Bld) 7.3 % Normal [facility] Comment on above: Performed By: #### Irene TORRES, BMP, , 81723-3 #### [facility] ([id number]) [address] [place] [address] 81125 Neutrophils/100 WBC (Bld) 54.6 % Normal [facility] Comment on above: Performed By: #### C BRIAN, BMP, , 15233-6 #### [facility] ([id number]) [address] [place] [address] 23506 Platelet mean volume (Bld) [Entitic vol] 7.3 fL Normal 7-12 [facility] Comment on above: Performed By: #### Irene TORRES, BMP, , 54774-4 #### [facility] ([id number]) [address] [place] [address] 73540 Platelets (Bld) [#/Vol] 245 10*3/uL Normal 150-450 [facility] Comment on above: Performed By: #### C WON TORRES, , 28715-1 #### [facility] ([id number]) [address] [place] [address] 56315 RBC COUNT 4.48 X10E12/L Normal 4.10-5.70 [facility] Comment on above: Performed By: #### C WON TORRES, , 19355-1 #### [facility] ([id number]) [address] [place] [address] 55913 WBC (Bld) [#/Vol] 6.6 10*3/uL Normal 4.0-11.0 [facility] Comment on above: Performed By: #### C WON TORRES, , 28732-6 #### [facility] ([id number]) [address] [place] [address] 51523 MAGNESIUMon 04-11-2024 Magnesium [Mass/Vol] 2.1 mg/dL Normal 1.8-2.6 [facility] Comment on above: Performed By: #### C WON TORRES, 94912-9, 82575-9 #### [facility] ([id number]) [address] [place] [address] 27518 Troponin I.cardiac High sens itivity method [Mass/Vol]on 04-11-2024 1 HOUR TROP I, HIGH SENSITIVITY 2 ng/L Normal <21 [facility] Comment on above: Performed By: #### 8 9579-7 #### [facility] ([id number]) [address] [place] [address] 04500 TROPONIN I, HIGH SENSITIVITY 3 ng/L Normal <21 [facility] Comment on above: Performed By: #### C WON TORRES, 04305-0, 68599-0 #### [facility] ([id number]) [address] [facility], [place] [address] DIAGNOSTIC QUAL BCR-ABL1 ASS AY W/ REFLEXon 03-12-2024 DIAGNOSTIC QUAL BCR-ABL1 ASSAY, RESULT Not detected Normal [facility] Comment on above: Result Comment: Ther e [...] is also amplified for specimen quality assurance supervisor chassis and to ensure the integrity of RNA. [...] Transcripts Analytical Sensitivity Minor (e1a2) NCN = 0.92983 Major (e13a2) %IS = 0.0040 Major (e14a2) [...] developed and its performance characteristics determined by [facility]. It has not been cleared or approved by the U.S. Food and Drug Administration. This test was performed in a CLIA-certified laboratory and is intended for clinical purposes. Performed By: [facility] [address] [place] [address] Anatomy And Physiology Instructor: Sunny Roman MD, PhD CLIA Number: [id number] Performed By: #### D QBC2 #### [facility] [address] [facility] [address] DIAGNOSTIC QUAL BCR-ABL1 ASSAY, SOURCE Not Provided Normal [facility] Comment on above: Result Comment: AMEN DED on 03/12/24: Result in error was LAV Whole Blood, verified at 09:43 on 03/01/24. Performed By: #### D QBC2 #### [facility] [address] [facility] [address] CHROMOSOME ANAL. BONE MARROW on 03-11-2024 CHROMOSOME ANAL. BONE MARROW SEE BELOW Normal [facility] Comment on above: Result Comment: Circle Cutting Saw Operator mosome Analysis, Bone Marrow See Note [...] reviewed and approved by Akash Smith, PhD, [facility] A portion of this analysis was performed at the following location(s): [facility]-[place]#1 [facility]-[place]#1 [facility]-[place]#1 INTERPRETIVE INFORMATION: Chromosome Analysis, Bone Marrow This test was developed and its performance characteristics determined by [facility]. It has not been cleared or approved by the US Food and Drug Administration. This test was performed in a CLIA certified laboratory and is intended for clinical purposes. EER Chromosome Analysis Bone Marrow See Note Authorized individuals can access the [facility] Enhanced Report using the following link: [email or web address] Performed By: [place] [address] Anatomy And Physiology Instructor: Sunny Roman MD, PhD CLIA Number: [id number] Performed By: #### M MMP, LPBM2, CRBM2 #### [facility] [address] [facility] [address] MYELOID MALIGANCIES MUTATION PANEL BY GoTunes 03-08-2024 EER MYELOID MALIGNANCIES PANEL BY NGS See Note Normal [facility] Comment on above: Result Comment: Auth orized individuals can access the [facility] Enhanced Report using the following link: [email or web address] Performed By: [place] [address] Anatomy And Physiology Instructor: Sunny Roman MD, PhD [place] Number: [id number] Performed By: #### M MMP, LPBM2, CRBM2 #### [facility] [address] [facility] [address] MYELOID MALIGNANCIES PANEL INTERP See Note Normal [facility] Comment on above: Result Comment: Myeloid Malignancies Mutation Panel NGS Submitted diagnosis or diagnosis under consideration for variant interpretation: Pancytopenia TIER 1: Variants of Known Clinical Significance in Hematologic Malignancies None found TIER 2: Variants of Unknown Clinical Significance in Hematologic Malignancies 1. NSD1 c.7576C>T, p.Gbv6595Vic ([id number]) VAF: 49.0% This variant has not been reported in hematologic malignancies, to the best of our knowledge. 2. KMT2A c.5573G>A, p.Udb4253Ggs ([id number]) VAF: 47.8% This variant has not been reported in hematologic malignancies, to the best of our knowledge. This result has been reviewed and approved by Zulay Abdi M.D. Low coverage regions: Listed below are regions where the average sequencing depth (number of times a particular nucleotide is sequenced) in at least 20% of the zifarp-xi-bbobnqnf is less than our stringent cutoff of [...] NOTCH1; NPM1*; NRAS; NSD1; PHF6; PIGA; PPM1D; PJZB94V; PRPF8; PTPN11; RAD21; RUNX1; SAMD9; SAMD9L; SETBP1; [...] LPBM2, CRBM2 #### [facility] [address] [facility] [address] MYELOID MALIGNANCIES PANEL SPECIMEN Bone Marrow Normal [facility] Comment on above: Performed By: #### M MMP, LPBM2, CRBM2 #### [facility] [address] [facility] [address] MYELOID MALIGNANCY PROPOSED DIAGNOSIS Pancytopenia Normal [facility] Comment on above: Performed By: #### M MMP, LPBM2, CRBM2 #### [facility] [address] [facility] [address] LEUKEMIA/LYMPHOMA PHENO BLOO Don 03-05-2024 LEUKEMIA/LYMPHOMA PHENO BLOOD SEE BELOW Normal [facility] Comment on above: Result Comment: Leuk /Lymph [...] loss of CD16 without any other abnormality) [place]:Lambda Ratio: approx. 2:1 CD4:CD8 Ratio: approx. 8:1 Viability: 58% Markers run: HLA-DR, [place], Lambda, CD2, CD3, CD4, CD5, CD7, CD8, CD10, CD11b, CD13, CD14, CD16, CD19, CD20, CD23, CD33, CD34, CD38, CD45, CD56, CD57, CD64, CD117, CD200 Num of Markers Run: 26 This result has been reviewed and approved by Kostas Miller M.D., Ph.D. 03/05/2024 INTERPRETIVE INFORMATION: Leuk/Lymph Phenotyping, Flow Cytometry This test was developed and its performance characteristics determined by [facility]. It has not been cleared or approved by the US Food and Drug Administration. This test was performed in a CLIA certified laboratory and is intended for clinical purposes. Performed By: [facility] [address] [place] [address] Anatomy And Physiology Instructor: Sunny Roman MD, PhD CLIA Number: [id number] Performed By: #### C , R #### [place] [address] LEUKEMIA/LYMPHOMA PHENO BONE MARROWon 03-03-2024 LEUKEMIA/LYMPHOMA PHENO BONE MARROW SEE BELOW Normal [facility] Comment on above: Result Comment: Leuk /Lymph [...] Viability: 82% Markers run: cKappa, cLambda, HLA-DR, [place], Lambda, CD2, CD3, CD4, CD5, CD7, CD8, CD10, CD11b, CD13, CD14, CD16, CD19, CD20, CD23, CD33, CD34, CD38, CD45, CD56, CD57, CD64, CD117, CD138, CD200 Num of Markers Run: 29 This result has been reviewed and approved by Kostas Miller M.D., Ph.D. 03/03/2024 INTERPRETIVE INFORMATION: Leuk/Lymph Phenotyping, Flow Cytometry This test was developed and its performance characteristics determined by [facility]. It has not been cleared or approved by the US Food and Drug Administration. This test was performed in a CLIA certified laboratory and is intended for clinical purposes. Performed By: [facility] [address] [place] [address] Anatomy And Physiology Instructor: Sunny Roman MD, PhD CLIA Number: [id number] Performed By: #### M MMP, LPBM2, CRBM2 #### [address] [address] ANION GAPon 03-02-2024 Anion gap [Moles/Vol] 9.0 mmol/L Normal 8.0-16.0 [facility] Comment on above: Result Comment: ANIO N GAP = Sodium -(Chloride + CO2) Performed By: #### C CANDY, WSR #### [facility] [address] [address] Anion Gapon 03-02-2024 Anion gap [Moles/Vol] 9.0 mmol/L 8.0 - 16.0 meq/L [facility] Comment on above: ANION GAP = Sodium - (Chloride + CO2) Performed at [facility] [address] [place] [address] BASIC METABOL PANELon 2023 Calcium [Mass/Vol] 8.4 mg/dL Low 8.5-10.5 [facility] Comment on above: Performed By: #### C CANDY, WSR #### [facility] [address] [place] [address] Chloride [Moles/Vol] 100 mmol/L Normal 98-111 [facility] Comment on above: Performed By: #### C CANDY, WSR #### [facility] [address] [place] [address] CO2 [Moles/Vol] 29 mmol/L Normal 23-33 [facility] Comment on above: Performed By: #### C RP, WSR #### [facility] [address] [place] [address] Creatinine [Mass/Vol] 0.9 mg/dL Normal 0.4-1.2 [facility] Comment on above: Performed By: #### C RP, WSR #### [facility] [address] [place] [address]40 Glucose [Mass/Vol] 103 mg/dL Normal 70-108 [facility] Comment on above: Performed By: #### C CANDY, WSR #### [address] [address] Potassium [Moles/Vol] 3.7 mmol/L Normal 3.5-5.2 [facility] Comment on above: Performed By: #### C RP, WSR #### [facility] [address] [place] [address] Sodium [Moles/Vol] 138 mmol/L Normal 135-145 [facility] Comment on above: Performed By: #### C RP, WSR #### [facility] [address] [place] [address] Urea nitrogen [Mass/Vol] 10 mg/dL Normal 7-22 [facility] Comment on above: Performed By: #### Irene GUPTA, WSR #### [facility] [address] [address] Basic metabolic 2000 panelon 03-02-2024 Calcium [Mass/Vol] 8.4 mg/dL Low 8.5 - 10. 5 mg/dL [facility] Comment on above: Performed at [facility] ion Medical Lab [address] [place] [address] Chloride [Moles/Vol] 100 mmol/L 98 - 111 meq/L [facility] CO2 [Moles/Vol] 29 mmol/L 23 - 33 meq/L Bon [facility] Creatinine [Mass/Vol] 0.9 mg/dL 0.4 - 1.2 mg/dL [facility] Glucose [Mass/Vol] 103 mg/dL 70 - 108 mg/dL [facility] Interpretation and review of laboratory results Abnormal [facility] Potassium [Moles/Vol] 3.7 mmol/L 3.5 - 5.2 meq/L [facility] Sodium [Moles/Vol] 138 mmol/L 135 - 145 meq/L [facility] Urea nitrogen [Mass/Vol] 10 mg/dL 7 - 22 mg/dL [facility] CBC WITH DIFFERENTIALon 11-0 ATYPICAL LYMPH OCC. Normal [facility] Comment on above: Performed By: #### C DMITRY, SCAN1 #### [place] [address] PLATELET ESTIMATE SL DECREASED Normal Adequate [facility] Comment on above: Performed By: #### Irene ANDRES, SCAN1 #### [place] [address] SMUDGE CELLS Present Normal Absent [facility] Comment on above: Performed By: #### Irene ANDRES, SCAN1 #### [place] [address] ABS BASOPHILS 0.0 thou/mm3 Normal 0.0-0.1 [facility] Comment on above: Performed By: #### Irene ANDRES, SCAN1 #### [address] [address] ABS EOSINOPHILS 0.0 thou/mm3 Normal 0.0-0.4 [facility] Comment on above: Performed By: #### Irene ANDRES, SCAN1 #### [address] [address] ABS IMMATURE GRANS (IG) 0.08 thou/mm3 High 0.00-0.07 [facility] Comment on above: Performed By: #### C DMITRY, SCAN1 #### [address] [address] ABS LYMPHOCYTES 0.7 thou/mm3 Low 1.0-4.8 [facility] Comment on above: Performed By: #### Irene ANDRES, SCAN1 #### [address] [address] ABS MONOCYTES 0.1 thou/mm3 Low 0.4-1.3 [facility] Comment on above: Performed By: #### C DMITRY, SCAN1 #### [address] [address] ABS NEUTROPHILS 0.9 thou/mm3 Low 1.8-7.7 [facility] Comment on above: Performed By: #### C DMITRY, SCAN1 #### [facility] [address] [place] [address] Basophils/100 WBC (Bld) 0.5 % Normal [facility] Comment on above: Performed By: #### C DMITRY, SCAN1 #### [facility] [address] [place] [address] Eosinophils/100 WBC (Bld) 2.6 % Normal [facility] Comment on above: Performed By: #### Irene ANDRES, SCAN1 #### [address] [address] Erythrocyte distribution width (RBC) [Ratio] 12.1 % Normal 11.5-14.5 [facility] Comment on above: Performed By: #### Irene ANDRES, SCAN1 #### [address] [address] Hematocrit (Bld) [Volume fraction] 33.8 % Low 42.0-52.0 [facility] Comment on above: Performed By: #### C DMITRY, SCAN1 #### [address] [address] Hemoglobin (Bld) [Mass/Vol] 11.6 g/dL Low 14.0-18.0 [facility] Comment on above: Performed By: #### C DMITRY, SCAN1 #### [facility] [address] [place] [address] IMMATURE GRANS (IG) 4.2 % Normal [facility] Comment on above: Performed By: #### C DMITRY, SCAN1 #### [facility] [address] [place] [address] Lymphocytes/100 WBC (Bld) 37.0 % Normal [facility] Comment on above: Performed By: #### C DMITRY, SCAN1 #### [facility] [address] [place] [address] MCH (RBC) [Entitic mass] 30.9 pg Normal 26.0-33.0 [facility] Comment on above: Performed By: #### C DMITRY, SCAN1 #### [facility] [address] [place] [address] MCHC (RBC) [Mass/Vol] 34.3 g/dL Normal 32.2-35.5 [facility] Comment on above: Performed By: #### C DMITRY, SCAN1 #### [facility] [address] [place] [address] MCV (RBC) [Entitic vol] 90.1 fL Normal 80.0-94.0 [facility] Comment on above: Performed By: #### Irene ANDRES, SCAN1 #### [address] [address] Monocytes/100 WBC (Bld) 7.8 % Normal [facility] Comment on above: Performed By: #### Irene ANDRES, SCAN1 #### [facility] [address] [place] [address] Neutrophils/100 WBC (Bld) 47.9 % Normal [facility] Comment on above: Performed By: #### Irene ANDRES, SCAN1 #### [facility] [address] [address] NRBC 0 /100 wbc Normal [facility] Comment on above: Performed By: #### Irene ANDRES, SCAN1 #### [facility] [address] [place] [address] PLATELET 100 thou/mm3 Low 130-400 [facility] Comment on above: Performed By: #### Irene ANDRES, SCAN1 #### [facility] [address] [place] [address] Platelet mean volume (Bld) [Entitic vol] 11.4 fL Normal 9.4-12.4 [facility] Comment on above: Performed By: #### Irene ANDRES, SCAN1 #### [facility] [address] [place] [address] RBC 3.75 mill/mm3 Low 4.70-6.10 [facility] Comment on above: Performed By: #### C DMITRY, SCAN1 #### [facility] [address] [place] [address] RDW-SD 40.8 fL Normal 35.0-45.0 [facility] Comment on above: Performed By: #### C DMITRY, SCAN1 #### [facility] [address] [place] [address] WBC 1.9 thou/mm3 Low 4.8-10.8 [facility] Comment on above: Performed By: #### C DMITRY, SCAN1 #### [facility] [address] [place] [address] CBC with Auto Differentialon 03-02-2024 Basophils (Bld) [...] [facility] Comment on above: Performed at [facility] [address] [place] [address] Variant lymphocytes LM Ql (Bld) OCC. % [facility] WBC (Bld) [#/Vol] 1.9 10*3/uL Low [facility] EKG Rhythm Stripon 4 PACEART [facility] FRANCES VARNER VIRUS ANTIBODIE Son 03-02-2024 FRANCES VARNER VIRUS ANTIBODIES SEE BELOW Normal [facility] Comment on above: Result Comment: EBV Ab to Viral Capsid Ag IgG 320.0 H 0.0-21.9 U/mL INTERPRETIVE INFORMATION: Farnces-Vanrer Virus Ab to Viral Capsid Ag, IgG [...] helpful. 11.0 U/mL or greater....Detected Performed By: [facility] [address] [place] [address] Anatomy And Physiology Instructor: Sunny Roman MD, PhD CLIA Number: [id number] Performed By: #### M MMP, LPBM2, CRBM2 #### [facility] [address] [facility] [address] Frances varner virus (EBV) ant ibody panel Ion 03-02-2024 FRANCES-VARNER VIRUS ANTIBODIES SEE BELOW [facility] Comment on above: EBV Ab to [...] helpful. 11.0 U/mL or greater....Detected Performed By: [facility] [address] [place] [address] Anatomy And Physiology Instructor: Sunny Roman MD, PhD CLIA Number: [id number] [facility] GFR, ESTIMATEDon 03-02-2024 GFR/1.73 sq M.predicted MDRD (S/P/Bld) [Vol rate/Area] mL/min/{1.73_m2} Normal >[address] [facility] Comment on above: Pediatric calculator link [...] that affects renal tubular secretion. Performed at [facility] [facility] [address] [place] [address] Result Comment: Danyel atric calculator link [email or web address] [...] Performed By: #### C RP, WSR #### [place] [address] No Panel Informationon 03-02 [facility] SCAN OF BLOOD SMEARon 2023 SCAN OF BLOOD SMEAR see below Normal [facility] Comment on above: Criteria Exceeded; S can of Differential Slide [place] [address] Result Comment: Crit eria Exceeded; Scan of Differential Slide Performed Performed By: #### C BCWD, SCAN1 #### [place] [address] BLOOD SMEAR REVIEWon PATHOLOGIST REVIEWED Tammi FUNES. Normal [facility] Comment on above: Result Comment: Panc ytopenia with normocytic anemia. No circulating blasts. No platelet clumps. Clinical correlation is recommended. Performed By: #### M MMP, LPBM2, CRBM2 #### [facility] [address] [facility] [place] [address] SMEAR REVIEWED BY PATHOLOGIST see below Normal [facility] Comment on above: Result Comment: See Below Performed By: #### M MMP, LPBM2, CRBM2 #### [facility] [address] [facility] [place] [address] CBC WITH DIFFERENTIALon PATHOLOGIST REVIEWED PCF Normal [facility] Comment on above: Performed By: #### C VFLU #### [place] [address] ATYPICAL LYMPH OCC. Normal [facility] Comment on above: Performed By: #### C VFLU #### [place] [address] ABS BASOPHILS 0.0 thou/mm3 Normal 0.0-0.1 [facility] Comment on above: Performed By: #### C VFLU #### [facility] [address] [place] [address] ABS EOSINOPHILS 0.0 thou/mm3 Normal 0.0-0.4 [facility] Comment on above: Performed By: #### C VFLU #### [address] [address] ABS IMMATURE GRANS (IG) 0.09 thou/mm3 High 0.00-0.07 [facility] Comment on above: Performed By: #### C VFLU #### [address] [address] ABS LYMPHOCYTES 0.5 thou/mm3 Low 1.0-4.8 [facility] Comment on above: Performed By: #### C VFLU #### [address] [address] ABS MONOCYTES 0.1 thou/mm3 Low 0.4-1.3 [facility] Comment on above: Performed By: #### C VFLU #### [address] [address] ABS NEUTROPHILS 1.1 thou/mm3 Low 1.8-7.7 [facility] Comment on above: Performed By: #### C VFLU #### [address] [address] Basophils/100 WBC (Bld) 1.1 % Normal [facility] Comment on above: Performed By: #### C VFLU #### [address] [address] Eosinophils/100 WBC (Bld) 1.7 % Normal [facility] Comment on above: Performed By: #### C VFLU #### [address] [address] Erythrocyte distribution width (RBC) [Ratio] 12.3 % Normal 11.5-14.5 [facility] Comment on above: Performed By: #### C VFLU #### [address] [address] Hematocrit (Bld) [Volume fraction] 38.2 % Low 42.0-52.0 [facility] Comment on above: Performed By: #### C VFLU #### [address] [address] Hemoglobin (Bld) [Mass/Vol] 12.9 g/dL Low 14.0-18.0 [facility] Comment on above: Performed By: #### C VFLU #### [address] [address] IMMATURE GRANS (IG) 5.0 % Normal [facility] Comment on above: Performed By: #### C VFLU #### [address] [address] Lymphocytes/100 WBC (Bld) 26.3 % Normal [facility] Comment on above: Performed By: #### C VFLU #### [address] [address] MCH (RBC) [Entitic mass] 30.2 pg Normal 26.0-33.0 [facility] Comment on above: Performed By: #### C VFLU #### [address] [address] MCHC (RBC) [Mass/Vol] 33.8 g/dL Normal 32.2-35.5 [facility] Comment on above: Performed By: #### C VFLU #### [address] [address] MCV (RBC) [Entitic vol] 89.5 fL Normal 80.0-94.0 [facility] Comment on above: Performed By: #### C VFLU #### [address] [address] Monocytes/100 WBC (Bld) 5.6 % Normal [facility] Comment on above: Performed By: #### C VFLU #### [address] [address] Neutrophils/100 WBC (Bld) 60.3 % Normal [facility] Comment on above: Performed By: #### C VFLU #### [facility] [address] [place] [address] NRBC 0 /100 wbc Normal [facility] Comment on above: Performed By: #### C VFLU #### [facility] [address] [place] [address] PLATELET 86 thou/mm3 Low 130-400 [facility] Comment on above: Performed By: #### C VFLU #### [facility] [address] [place] [address] Platelet mean volume (Bld) [Entitic vol] 11.2 fL Normal 9.4-12.4 [facility] Comment on above: Performed By: #### C VFLU #### [facility] [address] [place] [address] RBC 4.27 mill/mm3 Low 4.70-6.10 [facility] Comment on above: Performed By: #### C VFLU #### [place] [address] RDW-SD 40.0 fL Normal 35.0-45.0 [facility] Comment on above: Performed By: #### C VFLU #### [facility] [address] [place] [address] WBC 1.8 thou/mm3 Low 4.8-10.8 [facility] Comment on above: Performed By: #### C VFLU #### [place] [address] CBC with Auto Differentialon 03-01-2024 Basophils (Bld) [...] and review of laboratory results Abnormal [facility] Lymphocytes Absolute 0.5 Low [facility] Lymphocytes/100 WBC (Bld) 26.3 % [facility] MCH (RBC) [Entitic mass] 30.2 pg 26.0 - 33.0 pg [facility] MCHC (RBC) [Mass/Vol] 33.8 g/dL [facility] MCV (RBC) [Entitic vol] 89.5 fL 80.0 - 94.0 fL [facility] Monocytes Absolute 0.1 Low [facility] Monocytes/100 WBC (Bld) 5.6 % [facility] Neutrophils Absolute 1.1 Low [facility] Neutrophils/100 WBC (Bld) 60.3 % [facility] Nucleated RBC/100 WBC (Bld) [Ratio] 0 % /[address] [facility] Comment on above: Performed at [facility] [address] [place] [address] Pathologist Review PCF [facility] Platelet mean volume (Bld) [Entitic vol] 11.2 fL 9.4 - 12.[address] [facility] Platelets (Bld) [#/Vol] 86 10*3/uL Low [facility] RBC (Bld) [#/Vol] 4.27 10*6/uL Low [facility] Variant lymphocytes LM Ql (Bld) OCC. % [facility] WBC (Bld) [#/Vol] 1.8 10*3/uL Low [facility] CT BIOPSY BONE MARROWon - CT BIOPSY BONE MARROW CT-GUIDED BONE MARROW [...] ox monitoring devices by a registered nurse. Hdpm-fd-cydc time with patient 10 minutes. PROCEDURE: Signed [...] coaxial technique and handed to the laboratory geneticist for processing and evaluation. Post procedure CT [...] Kostas Mendoza MD 03/01/24 Final result Normal [facility] CT Guidance for biopsy of Cosmo ne marrowon 03-01-2024 Status post successf ul CT guided bone marrow biopsy. This report has been created using voice recognition software. It may contain minor errors which are inherent in voice recognition technology. Electronically signed by Dr Kostas Mendoza [facility] CT-GUIDED BONE MARRO W BIOPSY: CLINICAL [...] ox monitoring devices by a registered nurse. Okdx-lm-tink time with patient 10 minutes. PROCEDURE: Signed [...] coaxial technique and handed to the laboratory geneticist for processing and evaluation. Post procedure CT images revealed no significant post biopsy hemorrhage... At the end of the procedure, hemostasis was obtained with manual pressure The patient tolerated the procedure well. ALL CT SCANS AT THIS FACILITY use dose modulation, iterative reconstruction, and/or weight-based dosing when appropriate to reduce radiation dose to as low as reasonably achievable. [facility] Kostas Morelos MD - 03/01/2024 CT-GUIDED [...] ox monitoring devices by a registered nurse. Mmma-pt-ghzv time with patient 10 minutes. PROCEDURE: Signed [...] coaxial technique and handed to the laboratory geneticist for processing and evaluation. Post procedure CT [...] technology. Electronically signed by Dr Kostas Mendoza [facility] Study observation (narrative) [facility] CT Guidance for biopsy of Cosmo ne marrowOrdered By: Kostas Mendoza on 03-01-2024 [employer] Phone: EKG 12 LeadOrdered By: Julito Morris on 03-01-2024 Atrial Rate 87 BPM [facility] Phone: P [place] 73 degrees [employer] Phone: P-R Interval 140 ms [employer] Phone: Q-T Interval 378 ms [employer] Phone: QRS Duration 104 ms [employer] Phone: QTc Calculation (Bazett) 454 ms [employer] Phone: R [place] 72 degrees [employer] Phone: T [place] 42 degrees [employer] Phone: Ventricular Rate 87 BPM [facility] Phone: [employer] Phone: EKG 12 Leadon 03-01-2024 Normal sinus [...] NAYELI MORRIS ([id number]) on 03/01/2024 1:00:[address] [facility] EKG Rhythm Stripon 4 [address] [facility] [address] [facility] hr 86 [facility] No Panel Informationon 03-[address] [facility] Path Review, Smearon 024 REVIEWED BY Tammi FUNES. [facility] Comment on above: Pancytopenia with no rmocytic anemia. No circulating blasts. No platelet clumps. Clinical correlation is [place] [address] Smear Review see below [facility] Comment on above: See Below SCAN OF BLOOD SMEARon 2023 SCAN OF BLOOD SMEAR see below Normal [facility] Comment on above: Criteria Exceeded; S can of Differential Slide [place] [address] Result Comment: Crit eria Exceeded; Scan of Differential Slide Performed Performed By: #### C VFLU #### [place] [address] SURGICALon 03-01-2024 SURGICAL [facility] ETHAN LAGUNAS [id number] Assoc. Page [address] [place] [address] PROC: 03/01/2024 [facility] RECV: 03/01/2024 [address] RPTD: 03/20/2024 [place] [address] LOC: 4A ACCT: [id number] SEX: M : 1990 AGE: 33 Y [...] - The specimen container is labeled Ethan Scheyessi, bone marrow clot. The specimen is received in formalin and consists of an aggregate of red blood clot measuring 2.8 x 2.0 x 0[address] [employer] blood clot is submitted in one cassette labeled A1. B - The specimen container is labeled Ethan Scheyessi, bone marrow core. The specimen is received [...] currently pending. Please see separate reference reports. [id number] 2 LIZY BRISCOE M.D., F.C.A.P. [facility]/ [facility] Printed on: 03/20/[address] [place] [address] Original print date: 03/20/2024 Normal [facility] Scan of Blood Smearon [address] [facility] ANION GAPon 02-29-2024 Anion gap [Moles/Vol] 13.0 mmol/L Normal 8.0-16.0 [facility] Comment on above: Result Comment: ANIO N GAP = Sodium -(Chloride + CO2) Performed By: #### C VFLU #### [facility] [address] [place] [address] Anion Gapon 02-29-2024 Anion gap [Moles/Vol] 13.0 mmol/L 8.0 - 16.0 meq/L [facility] Comment on above: ANION GAP = Sodium - (Chloride + CO2) Performed at [facility] [address] [place] [address] BASIC METABOL PANELon 2023 Calcium [Mass/Vol] 8.3 mg/dL Low 8.5-10.5 [facility] Comment on above: Performed By: #### C VFLU #### [facility] [address] [place] [address] Chloride [Moles/Vol] 102 mmol/L Normal 98-111 [facility] Comment on above: Performed By: #### C VFLU #### [facility] [address] [place] [address] CO2 [Moles/Vol] 24 mmol/L Normal 23-33 [facility] Comment on above: Performed By: #### C VFLU #### [facility] [address] [place] [address] Creatinine [Mass/Vol] 1.1 mg/dL Normal 0.4-1.2 [facility] Comment on above: Performed By: #### C VFLU #### [facility] [address] [place] [address] Glucose [Mass/Vol] 96 mg/dL Normal 70-108 [facility] Comment on above: Performed By: #### C VFLU #### [facility] [address] [place] [address] Potassium [Moles/Vol] 3.7 mmol/L Normal 3.5-5.2 [facility] Comment on above: Performed By: #### C VFLU #### [facility] [address] [place] [address] Sodium [Moles/Vol] 139 mmol/L Normal 135-145 [facility] Comment on above: Performed By: #### C VFLU #### [facility] [address] [place] [address] Urea nitrogen [Mass/Vol] 13 mg/dL Normal 7-22 [facility] Comment on above: Performed By: #### C VFLU #### [facility] [address] [place] [address] Basic metabolic 2000 panelon 02-29-2024 Calcium [Mass/Vol] 8.3 mg/dL Low 8.5 - 10. 5 mg/dL [facility] Comment on above: Performed at [facility] ion Medical Lab [address] [place] [address] Chloride [Moles/Vol] 102 mmol/L 98 - 111 meq/L [facility] CO2 [Moles/Vol] 24 mmol/L 23 - 33 meq/L [facility] Creatinine [Mass/Vol] 1.1 mg/dL 0.4 - 1.2 mg/dL [facility] Glucose [Mass/Vol] 96 mg/dL 70 - 108 mg/dL [facility] Interpretation and review of laboratory results Abnormal [facility] Potassium [Moles/Vol] 3.7 mmol/L 3.5 - 5.2 meq/L [facility] Sodium [Moles/Vol] 139 mmol/L 135 - 145 meq/L [facility] Urea nitrogen [Mass/Vol] 13 mg/dL 7 - 22 mg/dL [facility] C-REACTIVE PROTEINon 024 C-REACTIVE PROTEIN 4.49 mg/dl High 0.00-1.00 [facility] Comment on above: Performed By: #### C RP, WSR #### [facility] [place] [address] C-Reactive Proteinon 024 CRP [Mass/Vol] 4.49 mg/dl High 0.00 - 1.00 mg/dl [facility] Comment on above: Performed at [facility] [address] [place] [address] CALCIUM (IONIZED) * WBon CALCIUM (IONIZED) * WB 1.11 mmol/L Low 1.12-1.32 [facility] Comment on above: Performed By: #### C VFLU #### [facility] [address] [place] [address] CBC WITH DIFFERENTIALon 01-31 PLATELET ESTIMATE DECREASED Normal Adequate [facility] Comment on above: Performed By: #### C VFLU #### [place] [address] SMUDGE CELLS Present Normal Absent [facility] Comment on above: Performed By: #### C VFLU #### [employer] [address] [place] [address] ABS BASOPHILS 0.0 thou/mm3 Normal 0.0-0.1 [facility] Comment on above: Performed By: #### C VFLU #### [facility] [address] [place] [address] ABS EOSINOPHILS 0.0 thou/mm3 Normal 0.0-0.4 [facility] Comment on above: Performed By: #### C VFLU #### [facility] [address] [facility] [address] [place] [address] ABS IMMATURE GRANS (IG) 0.05 thou/mm3 Normal 0.00-0.07 [facility] Comment on above: Performed By: #### C VFLU #### [address] [address] ABS LYMPHOCYTES 0.4 thou/mm3 Low 1.0-4.8 [facility] Comment on above: Performed By: #### C VFLU #### [address] [address] ABS MONOCYTES 0.1 thou/mm3 Low 0.4-1.3 [facility] Comment on above: Performed By: #### C VFLU #### [address] [address] ABS NEUTROPHILS 0.9 thou/mm3 Low 1.8-7.7 [facility] Comment on above: Performed By: #### C VFLU #### [address] [address] Basophils/100 WBC (Bld) 1.4 % Normal [facility] Comment on above: Performed By: #### C VFLU #### [address] [address] Eosinophils/100 WBC (Bld) 0.7 % Normal [facility] Comment on above: Performed By: #### C VFLU #### [address] [address] Erythrocyte distribution width (RBC) [Ratio] 12.0 % Normal 11.5-14.5 [facility] Comment on above: Performed By: #### C VFLU #### [facility] [address] [place] [address] Hematocrit (Bld) [Volume fraction] 36.0 % Low 42.0-52.0 [facility] Comment on above: Performed By: #### C VFLU #### [address] [address] Hemoglobin (Bld) [Mass/Vol] 12.2 g/dL Low 14.0-18.0 [facility] Comment on above: Performed By: #### C VFLU #### [address] [address] IMMATURE GRANS (IG) 3.4 % Normal [facility] Comment on above: Performed By: #### C VFLU #### [address] [address] Lymphocytes/100 WBC (Bld) 25.0 % Normal [facility] Comment on above: Performed By: #### C VFLU #### [address] [address] MCH (RBC) [Entitic mass] 30.7 pg Normal 26.0-33.0 [facility] Comment on above: Performed By: #### C VFLU #### [address] [address] MCHC (RBC) [Mass/Vol] 33.9 g/dL Normal 32.2-35.5 [facility] Comment on above: Performed By: #### C VFLU #### [address] [address] MCV (RBC) [Entitic vol] 90.5 fL Normal 80.0-94.0 [facility] Comment on above: Performed By: #### C VFLU #### [address] [address] Monocytes/100 WBC (Bld) 7.4 % Normal [facility] Comment on above: Performed By: #### C VFLU #### [address] [address] Neutrophils/100 WBC (Bld) 62.1 % Normal [facility] Comment on above: Performed By: #### C VFLU #### [address] [address] NRBC 0 /100 wbc Normal [facility] Comment on above: Performed By: #### C VFLU #### [address] [address] PLATELET 89 thou/mm3 Low 130-400 [facility] Comment on above: Performed By: #### C VFLU #### [address] [address] Platelet mean volume (Bld) [Entitic vol] 10.7 fL Normal 9.4-12.4 [facility] Comment on above: Performed By: #### C VFLU #### [facility] [address] [place] [address] RBC 3.98 mill/mm3 Low 4.70-6.10 [facility] Comment on above: Performed By: #### C VFLU #### [facility] [address] [place] [address] RDW-SD 40.1 fL Normal 35.0-45.0 [facility] Comment on above: Performed By: #### C VFLU #### [facility] [address] [place] [address] WBC 1.5 thou/mm3 Low 4.8-10.8 [facility] Comment on above: Performed By: #### C VFLU #### [place] [address] CBC with Auto Differentialon 02-29-2024 Basophils (Bld) [...] [facility] Comment on above: Performed at [facility] [address] [place] [address] WBC (Bld) [#/Vol] 1.5 10*3/uL Low [facility] CRP [Mass/Vol]on 02-29-2024 Interpretation and review of laboratory results Abnormal [facility] Calcium, Ionizedon Calcium.ionized ISE (Bld) [Moles/Vol] 1.11 mmol/L Low 1.12 - 1.32 mmol/L [facility] Comment on above: Performed at [facility] [address] [place], [place] [id number] EKG 12-LEADon 02-29-2024 EKG 12-LEAD 87 87 140 104 378 454 73 72 42 Normal sinus rhythm Nonspecific T wave abnormality Abnormal ECG When compared with ECG of 28-FEB-2024 20:02, No significant change was found Confirmed by NAYELI MORRIS ([id number]) on 03/01/2024 1:00:05 PM [email or web address] RetrieveTestByDateTime ?UlihhtnLB=[id number]&D ate=29-02-2024&Time=20 %3a57%3a59%3a00&TestTy pe=ECG&Site=3&OutputTy pe=PDF&Ext=PDF Normal [facility] ESR Westergren method (Bld) [Velocity]on 02-29-2024 ESR (Bld) [Velocity] 10 mm/h [facility] Comment on above: Performed at [facility] [address] [place], [place] [address] [place] [address] Electrophoresis Protein, Ser umon 02-29-2024 Protein Electrophoresis, Serum SEE BELOW [facility] Comment on above: Total Protein, Serum [...] See Note Authorized individuals can access the [employer] Enhanced Report using the following link: [email or web address] Performed By: [facility] [address] [place] [address] Anatomy And Physiology Instructor: Sunny Roman MD, PhD CLIA Number: [id number] [facility] FERRITINon 02-29-2024 Ferritin [Mass/Vol] 1435 ng/mL High 22-322 [facility] Comment on above: Performed By: #### C RP, WSR #### [employer] [facility] [employer] [address] [place] [address] Ferritinon 02-29-2024 Ferritin IA [Mass/Vol] 1435 ng/mL High 22 - 322 ng/mL [facility] Comment on above: Performed at [facility] [address] [place] [address] GFR, ESTIMATEDon 02-29-2024 GFR/1.73 sq M.predicted MDRD (S/P/Bld) [Vol rate/Area] mL/min/{1.73_m2} Normal >[address] [facility] Comment on above: Pediatric calculator link [...] that affects renal tubular secretion. Performed at [facility] [address] [place] [address] Result Comment: Pedi atric calculator link [email or web address].kidney.org/professionals/kdoqi/gfr_calculatorped [...] secretion. Performed By: #### C VFLU #### [employer] [address] [place] [address] HEPATIC FUNCTION PANELon Albumin [Mass/Vol] 3.3 g/dL Low 3.5-5.1 [facility] Comment on above: Performed By: #### C RP, WSR #### [employer] [address] [place] [address] ALP [Catalytic activity/Vol] 89 U/L Normal 38-126 [facility] Comment on above: Performed By: #### C RP, WSR #### [employer] [address] [place] [address] ALT [Catalytic activity/Vol] 49 U/L Normal 11-66 [facility] Comment on above: Performed By: #### C RP, WSR #### [address] [address] AST [Catalytic activity/Vol] 61 U/L High 5-40 [facility] Comment on above: Performed By: #### C RP, WSR #### [facility] [address] [facility] [address] [place] [address] Bilirubin [Mass/Vol] 0.7 mg/dL Normal 0.3-1.2 [facility] Comment on above: Performed By: #### C RP, WSR #### [facility] [employer] [address] [place] [address] Bilirubin.direct [Mass/Vol] 0.3 mg/dL Normal 0.1-13.8 [facility] Comment on above: Performed By: #### Irene RP, WSR #### [facility] [employer] [address] [address] Protein [Mass/Vol] 5.8 g/dL Low 6.1-8.0 [facility] Comment on above: Performed By: #### C CANDY, WSR #### [address] [address] HIV 1+2 Ab+HIV1 p24 Ag IA Ql on 02-29-[address] [facility] HIV AG/ABon 02-29-2024 HIV AG/AB SEE BELOW Normal [facility] Comment on above: Result Comment: HIV Ag/Ab NONREACTIVE NR No laboratory evidence of HIV infection. If acute HIV infection is suspected, consider testing for HIV-1 RNA. Performed at [facility], [address] [place] [address] . Performed By: #### C RP, WSR #### [facility] [employer] [address] [address] HIV Screenon 02-29-2024 HIV 1+2 Ab+HIV1 p24 Ag IA Ql SEE BELOW [facility] Comment on above: HIV Ag/Ab NONREACTIV E NR No laboratory evidence of HIV infection. If acute HIV infection is suspected, consider testing for HIV-1 RNA. Performed at [facility] [employer], [address] [place] [address] . Hepatic function 2000 panelo n 02-29-2024 Albumin BCG dye [Mass/Vol] 3.3 g/dL Low 3.5 - 5.1 g/dL [facility] ALP [Catalytic activity/Vol] 89 U/L 38 - 126 U/L [facility] ALT No additional P-5'-P [Catalytic activity/Vol] 49 U/L 11 - 66 U/L [facility] AST [Catalytic activity/Vol] 61 U/L High 5 - 40 U/L [facility] Bilirubin [Mass/Vol] 0.7 mg/dL 0.3 - 1.2 mg/dL [facility] Bilirubin.conjugate d [Mass/Vol] 0.3 mg/dL 0.1 - 13.8 mg/dL [facility] Protein [Mass/Vol] 5.8 g/dL Low 6.1 - 8.0 g/dL [facility] Comment on above: Performed at [facility] Lab [address] [place] [address] IRONon 02-29-2024 Iron [Mass/Vol] 31 ug/dL Low 65-195 [facility] Comment on above: Performed By: #### Irene GUPTA, WSR #### [address] [address] IRON BINDING CAPACITYon - IRON BINDING CAPACITY 199 ug/dL Normal 171-450 [facility] Comment on above: Performed By: #### Irene GUPTA, WSR #### [facility] [address] [place] [address] IRON SATURATIONon 02-29-2024 Iron saturation [Mass fraction] 16 % Low 20 - 50 % [facility] Comment on above: Performed at [facility] [address] [place] [address] IRON SATURATION 16 % Low 20-50 [facility] Comment on above: Performed By: #### Irene GUPTA, WSR #### [facility] [address] [place] [address] Ironon 02-29-2024 Iron [Mass/Vol] 31 ug/dL Low 65 - 195 ug/dL [facility] Comment on above: Performed at [facility] [address] [place] [address] Iron binding capacityon 01-31 Iron binding capacity [Mass/Vol] 199 ug/dL 171 - 450 ug/dL [facility] Comment on above: Performed at [facility] [address] [place] [address] MR Brain WO and W contrast I Von 02-29-2024 No acute intracrania l findings. This document has been electronically signed by: Jadon Bhatti MD on 02/29/2024 02:17 AM [facility] MRI Brain W/WO Contrast COMPARISON: None FINDINGS: No evidence of acute infarction. No acute intracranial hemorrhage. No mass-effect or midline shift. No abnormal enhancement. No hydrocephalus. Clear paranasal sinuses. Clear mastoid air cells. Unremarkable orbits. [facility] Jadon Bhatti MD - 02/29/2024 MRI Brain W/WO Contrast COMPARISON: None FINDINGS: No evidence of acute infarction. No acute intracranial hemorrhage. No mass-effect or midline shift. No abnormal enhancement. No hydrocephalus. Clear paranasal sinuses. Clear mastoid air cells. Unremarkable orbits. IMPRESSION: No acute intracranial findings. This document has been electronically signed by: Jadon Bhatti MD on 02/29/2024 02:[address] [facility] MR Brain WO and W contrast I VOrdered By: Jadon Bhatti on 02-29-[address] [facility] Work Phone: MRI BRAIN W WO [...] Jadon Bhatti MD 02/29/24 Final result Normal [facility] No Panel Informationon 02-28 Interpretation and review of laboratory results Abnormal [facility] Interpretation and review of laboratory results Abnormal [facility] PROTEIN ELECTRO., SERUMon PROTEIN ELECTRO., SERUM SEE BELOW Normal [facility] Comment on above: Result Comment: Tota l [...] See Note Authorized individuals can access the [employer] Enhanced Report using the following link: [email or web address] Performed By: [facility] [address] [place] [address] Anatomy And Physiology Instructor: Sunny Roman MD, PhD CLIA Number: [id number] Performed By: #### C CANDY, WSR #### [employer] [address] [place] [address] SCAN OF BLOOD SMEARon 2023 SCAN OF BLOOD SMEAR see below Normal [facility] Comment on above: Criteria Exceeded; S can of Differential Slide Performed Performed at [facility] [address] [place] [address] Result Comment: Crit eria Exceeded; Scan of Differential Slide Performed Performed By: #### C RP, WSR #### [employer] [address] [place] [address] SED RATEon 02-29-2024 SED RATE 10 mm/hr Normal 0-10 [facility] Comment on above: Performed By: #### C RP, WSR #### [employer] [address] [place] [address] ANION GAPon 02-28-2024 Anion gap [Moles/Vol] 14.0 mmol/L Normal 8.0-16.0 [facility] Comment on above: Result Comment: ANIO N GAP = Sodium -(Chloride + CO2) Performed By: #### M MIC, LPBM2, CRBM2 #### [facility] [address] [place] [address] APTTon 02-28-2024 aPTT Coag (Bld) [Time] 24.6 s Normal 22.0-38.0 [facility] Comment on above: Result Comment: Ther apeutic Heparin Reference Range= 60-95 seconds (corresponds to 0.3 to 0.7 u/mL Anti-Xa factor activity) Performed By: #### M MIC, LPBM2, CRBM2 #### [facility] [address] [facility] [place] [address] Anion Gapon 02-28-2024 Anion gap [Moles/Vol] 14.0 mmol/L 8.0 - 16.0 meq/L [facility] Comment on above: ANION GAP = Sodium - (Chloride + CO2) Performed at [facility] [address] [place] [address] CBC WITH DIFFERENTIALon 01-31 ABS BASOPHILS 0.0 thou/mm3 Normal 0.0-0.1 [facility] Comment on above: Performed By: #### M MIC, LPBM2, CRBM2 #### [facility] [address] [place] [address] ABS EOSINOPHILS 0.0 thou/mm3 Normal 0.0-0.4 [facility] Comment on above: Performed By: #### M MMP, LPBM2, CRBM2 #### [facility] [address] [place] [address] ABS IMMATURE GRANS (IG) 0.03 thou/mm3 Normal 0.00-0.07 [facility] Comment on above: Performed By: #### M MMP, LPBM2, CRBM2 #### [facility] [address] [place] [address] ABS LYMPHOCYTES 0.4 thou/mm3 Low 1.0-4.8 [facility] Comment on above: Performed By: #### M MMP, LPBM2, CRBM2 #### [facility] [address] [facility] [place] [address] ABS MONOCYTES 0.2 thou/mm3 Low 0.4-1.3 [facility] Comment on above: Performed By: #### M MMP, LPBM2, CRBM2 #### [facility] [address] [facility] [place] [address] ABS NEUTROPHILS 1.6 thou/mm3 Low 1.8-7.7 [facility] Comment on above: Performed By: #### M MMP, LPBM2, CRBM2 #### [facility] [address] [facility] [place] [address] Basophils/100 WBC (Bld) 1.7 % Normal [facility] Comment on above: Performed By: #### M MMP, LPBM2, CRBM2 #### [facility] [address] [facility] [place] [address] Eosinophils/100 WBC (Bld) 0.9 % Normal [facility] Comment on above: Performed By: #### M MMP, LPBM2, CRBM2 #### [facility] [address] [facility] [address] Erythrocyte distribution width (RBC) [Ratio] 12.2 % Normal 11.5-14.[address] [facility] Comment on above: Performed By: #### M MMP, LPBM2, CRBM2 #### [facility] [address] [facility] [place] [address] Hematocrit (Bld) [Volume fraction] 39.2 % Low 42.0-52.[address] [facility] Comment on above: Performed By: #### M MMP, LPBM2, CRBM2 #### [facility] [address] [facility] [address] Hemoglobin (Bld) [Mass/Vol] 13.1 g/dL Low 14.0-18.[address] [facility] Comment on above: Performed By: #### M MMP, LPBM2, CRBM2 #### [facility] [address] [facility] [place] [address] IMMATURE GRANS (IG) 1.3 % Normal [facility] Comment on above: Performed By: #### M MMP, LPBM2, CRBM2 #### [facility] [address] [facility] [address] Lymphocytes/100 WBC (Bld) 17.7 % Normal [facility] Comment on above: Performed By: #### M MMP, LPBM2, CRBM2 #### [facility] [address] [facility] [address] MCH (RBC) [Entitic mass] 30.2 pg Normal 26.0-33.[address] [facility] Comment on above: Performed By: #### M MMP, LPBM2, CRBM2 #### [facility] [address] [facility] [address] MCHC (RBC) [Mass/Vol] 33.4 g/dL Normal 32.2-35.[address] [facility] Comment on above: Performed By: #### M MMP, LPBM2, CRBM2 #### [facility] [address] [facility] [address] MCV (RBC) [Entitic vol] 90.3 fL Normal 80.0-94.[address] [facility] Comment on above: Performed By: #### M MMP, LPBM2, CRBM2 #### [facility] [address] [facility] [address] Monocytes/100 WBC (Bld) 8.2 % Normal [facility] Comment on above: Performed By: #### M MMP, LPBM2, CRBM2 #### [facility] [address] [facility] [address] Neutrophils/100 WBC (Bld) 70.2 % Normal [facility] Comment on above: Performed By: #### M MMP, LPBM2, CRBM2 #### [facility] [address] [facility] [address] NRBC 0 /100 wbc Normal [facility] Comment on above: Performed By: #### M MMP, LPBM2, CRBM2 #### [facility] [address] [facility] [address] PLATELET 107 thou/mm3 Low 130-400 [facility] Comment on above: Performed By: #### M MMP, LPBM2, CRBM2 #### [facility] [address] [facility] [address] Platelet mean volume (Bld) [Entitic vol] 10.7 fL Normal 9.4-12.[address] [facility] Comment on above: Performed By: #### M MMP, LPBM2, CRBM2 #### [facility] [address] [place] [address] RBC 4.34 mill/mm3 Low 4.70-6.10 [facility] Comment on above: Performed By: #### M MMP, LPBM2, CRBM2 #### [facility] [address] [facility] [address] RDW-SD 40.4 fL Normal 35.0-45.0 [facility] Comment on above: Performed By: #### M MMP, LPBM2, CRBM2 #### [facility] [address] [facility] [address] WBC 2.3 thou/mm3 Low 4.8-10.8 [facility] Comment on above: Performed By: #### M MMP, LPBM2, CRBM2 #### [facility] [address] [facility] [address] CBC with Auto Differentialon 02-28-2024 Basophils (Bld) [#/Vol] 0.0 10*3/uL [facility] Eosinophils Absolute 0.[address] Erythrocyte distribution width (RBC) [Entitic vol] 40.4 fL 35.0 - 45.0 fL [facility] Immature granulocytes (Bld) [#/Vol] 0.03 10*3/uL [facility] Immature granulocytes/100 WBC (Bld) 1.3 % [facility] Interpretation and review of laboratory results Abnormal [facility] Lymphocytes Absolute 0.4 Low [facility] Monocytes Absolute 0.2 Low [facility] Neutrophils Absolute 1.6 Low [facility] Nucleated RBC/100 WBC (Bld) [Ratio] 0 % /100 wbc [facility] Comment on above: Performed at [facility] [address] [place] [address] Platelets (Bld) [#/Vol] 107 10*3/uL Low [facility] RBC (Bld) [#/Vol] 4.34 10*6/uL Low [facility] WBC (Bld) [#/Vol] 2.3 10*3/uL Low [facility] COMP. METABOLIC PANELon 01-31 Albumin [Mass/Vol] 3.6 g/dL Normal 3.5-5.1 [facility] Comment on above: Performed By: #### M MMP, LPBM2, CRBM2 #### [facility] [address] [place] [address] ALP [Catalytic activity/Vol] 85 U/L Normal 38-126 [facility] Comment on above: Performed By: #### M MMP, LPBM2, CRBM2 #### [facility] [address] [place] [address] ALT [Catalytic activity/Vol] 39 U/L Normal 11-66 [facility] Comment on above: Performed By: #### M MMP, LPBM2, CRBM2 #### [facility] [address] [place] [address] AST [Catalytic activity/Vol] 45 U/L High 5-40 [facility] Comment on above: Performed By: #### M MMP, LPBM2, CRBM2 #### [facility] [address] [place] [address] Bilirubin [Mass/Vol] 0.8 mg/dL Normal 0.3-1.2 [facility] Comment on above: Performed By: #### M MMP, LPBM2, CRBM2 #### [facility] [address] [place] [address] Calcium [Mass/Vol] 8.5 mg/dL Normal 8.5-10.5 [facility] Comment on above: Performed By: #### M MMP, LPBM2, CRBM2 #### [facility] [address] [place] [address] Chloride [Moles/Vol] 101 mmol/L Normal 98-111 [facility] Comment on above: Performed By: #### M MMP, LPBM2, CRBM2 #### [facility] [address] [place] [address] CO2 [Moles/Vol] 25 mmol/L Normal 23-33 [facility] Comment on above: Performed By: #### M MMP, LPBM2, CRBM2 #### [facility] [address] [place] [address] Creatinine [Mass/Vol] 1.2 mg/dL Normal 0.4-1.2 [facility] Comment on above: Performed By: #### M MMP, LPBM2, CRBM2 #### [facility] [address] [facility] [place] [address] Glucose [Mass/Vol] 94 mg/dL Normal 70-108 [facility] Comment on above: Performed By: #### M MMP, LPBM2, CRBM2 #### [facility] [address] [facility] [place] [address] POTASSIUM WITH REFLEX MG 4.1 meq/L Normal 3.5-5.2 [facility] Comment on above: Performed By: #### M MMP, LPBM2, CRBM2 #### [facility] [address] [facility] [place] [address] Protein [Mass/Vol] 6.2 g/dL Normal 6.1-8.0 [facility] Comment on above: Performed By: #### M MMP, LPBM2, CRBM2 #### [facility] [address] [facility] [place] [address] Sodium [Moles/Vol] 140 mmol/L Normal 135-145 [facility] Comment on above: Performed By: #### M MMP, LPBM2, CRBM2 #### [facility] [address] [facility] [place] [address] Urea nitrogen [Mass/Vol] 15 mg/dL Normal 7-22 [facility] Comment on above: Performed By: #### M MMP, LPBM2, CRBM2 #### [facility] [address] [facility] [place] [address] Comprehensive metabolic 2000 panelon 02-28-2024 Albumin BCG dye [Mass/Vol] 3.6 g/dL 3.5 - 5.1 g/dL [facility] ALP [Catalytic activity/Vol] 85 U/L 38 - 126 U/L [facility] ALT No additional P-5'-P [Catalytic activity/Vol] 39 U/L 11 - 66 U/L [facility] Comment on above: Performed at [facility] [address] [place] [address] AST [Catalytic activity/Vol] 45 U/L High 5 - 40 U/L [facility] Bilirubin [Mass/Vol] 0.8 mg/dL 0.3 - 1.2 mg/dL [facility] Calcium [Mass/Vol] 8.5 mg/dL 8.5 - 10. 5 mg/dL [facility] Chloride [Moles/Vol] 101 mmol/L 98 - 111 meq/L [facility] CO2 [Moles/Vol] 25 mmol/L 23 - 33 meq/L [facility] Creatinine [Mass/Vol] 1.2 mg/dL 0.4 - 1.2 mg/dL [facility] Glucose [Mass/Vol] 94 mg/dL 70 - 108 mg/dL [facility] Interpretation and review of laboratory results Abnormal [facility] Potassium [Moles/Vol] 4.1 mmol/L 3.5 - 5.2 meq/L [facility] Protein [Mass/Vol] 6.2 g/dL 6.1 - 8.0 g/dL [facility] Sodium [Moles/Vol] 140 mmol/L 135 - 145 meq/L [facility] Urea nitrogen [Mass/Vol] 15 mg/dL 7 - 22 mg/dL [facility] EKG 12 Leadon 02-28-2024 Atrial Rate 91 BPM [facility] P [place] 69 degrees [facility] P-R Interval [address] [facility] Q-T Interval [address] [facility] QRS Duration [address] [facility] QTc Calculation (Bazett) 442 ms [facility] R [place] 70 degrees [facility] T [place] 25 degrees [facility] Ventricular Rate 91 BPM [facility] Normal sinus rhythm Incomplete right bundle branch block Nonspecific T wave abnormality Abnormal ECG When compared with ECG of 28-FEB-2024 16:05, No significant change was found Confirmed by Arben Mercado ([id number]) on 02/28/2024 8:19:15 PM [facility] STR MUSE Unknown, Provider, M D - 02/28/2024 Normal sinus rhythm Incomplete right bundle branch block Nonspecific T wave abnormality Abnormal ECG When compared with ECG of 28-FEB-2024 16:05, No significant change was found Confirmed by Arben Mercado ([id number]) on 02/28/2024 8:19:15 PM [facility] Normal sinus rhythm Incomplete right bundle branch block Nonspecific ST and T wave abnormality Abnormal ECG No previous ECGs available Clinical correlation is indicated Confirmed by Arben Mercado ([id number]) on 02/28/2024 7:52:29 PM [facility] STR OXANA Unknown, Provider, M D - 02/28/2024 Normal sinus rhythm Incomplete right bundle branch block Nonspecific ST and T wave abnormality Abnormal ECG No previous ECGs available Clinical correlation is indicated Confirmed by Arben Mercado ([id number]) on 02/28/2024 7:52:29 PM [facility] EKG 12 LeadOrdered By: Provi kenya Unknown on 02-28-2024 Atrial Rate 78 BPM [facility] Work Phone: P [place] 56 degrees [employer] Work Phone: P-R Interval 154 ms [employer] Phone: Q-T Interval 386 ms [employer] Phone: QRS Duration 102 ms [employer] Work Phone: QTc Calculation (Bazett) 440 ms [employer] Phone: R [place] 63 degrees [employer] Phone: T [place] 19 degrees [employer] Phone: Ventricular Rate [address] [employer] Work Phone: [employer] Phone: EKG 12-LEADon 02-28-2024 EKG 12-LEAD 91 91 142 100 [phone] Normal sinus rhythm Incomplete right bundle branch block Nonspecific T wave abnormality Abnormal ECG When compared with ECG of 28-FEB-2024 16:05, No significant change was found Confirmed by Arben Mercado ([id number]) on 02/28/2024 8:19:15 PM [email or web address] RetrieveTestByDateTime ?QhkmvazJL=[id number]&D ate=28-02-2024&Time=20 %3a02%3a02%3a00&TestTy pe=ECG&Site=3&OutputTy pe=PDF&Ext=PDF Normal [facility] EKG 12-LEAD 78 78 154 102 386 440 56 63 19 Normal sinus rhythm Incomplete right bundle branch block Nonspecific ST and T wave abnormality Abnormal ECG No previous ECGs available Clinical correlation is indicated Confirmed by Arben Mercado ([id number]) on 02/28/2024 7:52:29 PM [email or web address] RetrieveTestByDateTime ?VrpqakvOW=[id number]&D ate=28-02-2024&Time=16 %3a05%3a49%3a00&TestTy pe=ECG&Site=3&OutputTy pe=PDF&Ext=PDF Normal [facility] EKG Rhythm Stripon PACEART [facility] GFR, ESTIMATEDon 02-28-2024 GFR/1.73 sq M.predicted MDRD (S/P/Bld) [Vol rate/Area] 83 mL/min/{1.73_m2} Normal >60 [facility] Comment on above: Pediatric calculator [...] that affects renal tubular secretion. Performed at [facility] [address] [place] [address] Result Comment: Pedi atric calculator link [email or web address] [...] M MMP, LPBM2, CRBM2 #### [facility] [address] [facility] [address] INR Coag (PPP) [Relative kurt e]on 02-28-[address] [facility] Influenza virus A and B RNA and SARS-CoV-2 (COVID-19) N gene panel MARIKA+probe (Resp)on 02-28-2024 FLUAV RNA MARIKA+probe Ql (Resp) Not detected NOT DETECTED [facility] FLUBV RNA MARIKA+probe Ql (Resp) Not detected NOT DETECTED [facility] Comment on above: Performed at [facility] [place] [address] SARS-CoV-2 (COVID-19) RNA MARIKA+probe Ql (Resp) Not detected NOT DETECTED [facility] Comment on above: Not Detected results [...] B in nasopharyngeal and nasal swab specimens. [facility] LDon 02-28-2024 LD 532 U/L High 100-190 [facility] Comment on above: Performed By: #### M MMP, LPBM2, CRBM2 #### [facility] [address] [facility] [address] Lactate Dehydrogenaseon 01-31 LDH Lactate to pyruvate reaction [Catalytic activity/Vol] 532 U/L High 100 - 190 U/L [facility] Comment on above: Performed at [facility] [place] [address] MAGNESIUMon 02-28-2024 Magnesium [Mass/Vol] 2.3 mg/dL Normal 1.6-2.4 [facility] Comment on above: Performed By: #### C VFLU #### [facility] [address] [place], [place] [address] MR Brain WO and W contrast I Von 02-28-2024 Radiology Study observation (narrative) [facility] Magnesiumon 02-28-2024 Magnesium [Mass/Vol] 2.3 mg/dL 1.6 - 2.4 mg/dL [facility] Comment on above: Performed at [facility] [address] [place] [address] Magnesium [Mass/Vol]on 02-[address] [facility] No Panel Informationon 02-27 Interpretation and review of laboratory results Abnormal [facility] PROTHOMBIN TIMEon 02-28-2024 INR Coag (Bld) [Relative time] 1.13 {INR} Normal 0.85-1.13 [facility] Comment on above: Result Comment: ---- -----INDICATION INR Reference Range DVT, PE, AF, AMI, tissue heart valve 2.0 to 3.0 Mechanical prosthetic valves 2.5 to 3.5 Performed By: #### M MIC, LPBM2, CRBM2 #### [facility] [address] [facility] [address] Protime-INRon 02-28-2024 INR Coag (PPP) [Relative time] 1.13 {INR} 0.85 - 1.[address] [facility] Comment on above: ---------INDICATION- INR Reference Range DVT, PE, AF, AMI, tissue heart valve 2.0 to 3.0 Mechanical prosthetic valves 2.5 to 3.5 Performed at [facility] [address] [place], [place] [id number] RETICULOCYTE PANELon 024 ABS RETIC COUNT 47.0 thou/mm3 Normal 20.0-115.0 [facility] Comment on above: Performed By: #### M MMP, LPBM2, CRBM2 #### [facility] [address] [facility] [address] IMM RETIC FRACTION 18.5 % High 2.3-13.4 [facility] Comment on above: Performed By: #### M MMP, LPBM2, CRBM2 #### [facility] [address] [place] [address] RETIC HEMOGLOBIN 29.0 pg Normal 28.2-35.7 [facility] Comment on above: Performed By: #### M MMP, LPBM2, CRBM2 #### [facility] [address] [place] [address] RETICULOCYTES 1.1 % Normal 0.5-2.0 [facility] Comment on above: Performed By: #### M MMP, LPBM2, CRBM2 #### [facility] [address] [place] [address] Reticulocyteson 02-28-2024 Hemoglobin Auto (Reticulocytes) [Entitic mass] 29.0 pg 28.2 - 35.[address] [facility] Comment on above: Performed at [facility] [address] [place] [address] Immature reticulocytes/Total reticulocytes (Bld) 18.5 % High 2.3 - 13.4 % [facility] Interpretation and review of laboratory results Abnormal [facility] eBIZ.mobility Reticulocytes (Bld) [#/Vol] 47.0 10*3/uL doxo [facility] Reticulocytes/100 RBC (Bld) 1.1 % 0.5 - 2.0 % [facility] SARS-COV-2 & INFLUENZA A/[facility] 02-28-2024 INFLUENZA A, RT-PCR Not detected Normal NOT DETECTED [facility] Comment on above: Performed By: #### C VFLU #### [facility] [address] [place] [address] INFLUENZA B, RT-PCR Not detected Normal NOT DETECTED [facility] Comment on above: Performed By: #### C VFLU #### [facility] [address] [place] [address] SARS-CoV-2 (COVID-19) RNA MARIKA+probe Ql (Unsp spec) Not detected Normal NOT DETECTED [facility] Comment on above: Result Comment: Not Detected [...] specimens. Performed By: #### C VFLU #### [facility] [address] [place] [address] URIC ACIDon 02-28-2024 Urate [Mass/Vol] 7.6 mg/dL High 3.7-7.0 [facility] Comment on above: Performed By: #### M MMP, LPBM2, CRBM2 #### [facility] [address] [facility] [address] Uric Acidon 02-28-2024 Urate [Mass/Vol] 7.6 mg/dL High 3.7 - 7.0 mg/dL [facility] Comment on above: Performed at [facility] [address] [place] [address] VITAMIN B12 FOLATEon 024 Cobalamin (Vitamin B12) [Mass/Vol] 734 pg/mL Normal 211-911 [facility] Comment on above: Performed By: #### C DMITRY, SCAN1 #### [address] [address] FOLATE 4.1 ng/mL Low 4.8-24.2 [facility] Comment on above: Performed By: #### C DMITRY, SCAN1 #### [facility] [address] [place] [address] Vitamin B12 & Folateon 02-27 Cobalamin (Vitamin B12) [Mass/Vol] 734 pg/mL 211 - 911 pg/mL [facility] Folate [Mass/Vol] 4.1 ng/mL Low 4.8 - 24.2 ng/mL [facility] Comment on above: Performed at [facility] [address] [place] [address] Interpretation and review of laboratory results Abnormal [facility] aPTT Coag (Bld) [Time]on aPTT Coag (PPP) [Time] 24.[address] [facility] Comment on above: Therapeutic Heparin Reference Range= 60-95 seconds (corresponds to 0.3 to 0.7 u/mL Anti-Xa factor activity) Performed at [facility] [employer] [address] [place] [address] 25-hydroxyvitamin D3 [Mass/V ol]on 02-27-[address] [facility] BLOOD SMEAR REVIEWon PATHOLOGIST REVIEWED Estefani FUNES [facility] Comment on above: Result Comment: No s chistocytes seen Performed By: #### Irene GUPTA, WSR #### [facility] [address] [place] [address] SMEAR REVIEWED BY PATHOLOGIST see below [facility] Comment on above: Result Comment: See Below Performed By: #### Irene RP, WSR #### [facility] [address] [place] [address] C-REACTIVE PROTEINon C-REACTIVE PROTEIN 6.83 mg/dl High 0.00-1.00 [facility] Comment on above: Performed By: #### Irene RP, WSR #### [facility] [address] [address] C-Reactive Proteinon 024 CRP [Mass/Vol] 6.83 mg/dl High 0.00 - 1.00 mg/dl [facility] Comment on above: Performed at [facility] [address] [place] [address] CALCIUM (IONIZED) * WBon CALCIUM (IONIZED) * WB 1.11 mmol/L Low 1.12-1.32 [facility] Comment on above: Performed By: #### C BCWD, SCAN1 #### [facility] [address] [place] [address] CREATININE (URINE)on Creatinine (U) [Mass/Vol] 37.4 mg/dL [facility] Comment on above: Performed By: #### C RP, WSR #### [facility] [address] [place] [address] CRP [Mass/Vol]on 02-27-2024 Interpretation and review of laboratory results Abnormal [facility] Calcium, Ionizedon 4 Calcium.ionized ISE (Bld) [Moles/Vol] 1.11 mmol/L Low 1.12 - 1.32 mmol/L [facility] Comment on above: Performed at [facility] [address] [place] [address] Calcium.ionized ISE (Bld) [M oles/Vol]on 02-27-2024 Interpretation and review of laboratory results Abnormal [facility] Creatinine, Random Urineon 1 Creatinine (U) [Mass/Vol] 37.4 mg/dL [facility] Comment on above: Performed at [facility] [address] [place] [address] DRUG ABUSE SCREENon 02-27-20 24 AMPHETAMINE/METHAMP H Negative Normal NEGATIVE [facility] Comment on above: Performed By: #### C RP, WSR #### [facility] [employer] [address] [place] [address] BARBITURATE Negative Normal NEGATIVE [facility] Comment on above: Performed By: #### C RP, WSR #### [facility] [address] [place] [address] Benzodiazepines Ql (U) Negative Normal NEGATIVE [facility] Comment on above: Performed By: #### C RP, WSR #### [facility] [address] [place] [address] Cannabinoids Screen Ql (U) Positive Normal NEGATIVE [facility] Comment on above: Performed By: #### C RP, WSR #### [facility] [address] [place] [address] COCAINE METABOLITE Negative Normal NEGATIVE [facility] Comment on above: Performed By: #### C RP, WSR #### [facility] [address] [place] [address] FENTANYL Negative Normal NEGATIVE [facility] Comment on above: Result Comment: A N [...] Performed By: #### C RP, WSR #### [facility] [address] [place] [address] Opiates Ql (U) Negative Normal NEGATIVE [facility] Comment on above: Performed By: #### C RP, WSR #### [facility] [address] [place] [address] OXYCODONE Negative Normal NEGATIVE [facility] Comment on above: Performed By: #### C RP, WSR #### [facility] [address] [place] [address] Phencyclidine Ql (U) Negative Normal NEGATIVE [facility] Comment on above: Performed By: #### C RP, WSR #### [address] [address] EEG 24 houron 02-27-2024 Rm Davis MD 02/27/2024 11:51 AM LONG-TERM EEG-VIDEO MONITORING CLINICAL NEUROPHYSIOLOGY LABORATORY DEPARTMENT OF NEUROLOGY [facility] Patient: Ethan Donald Age: 33 [...] times per day Jenny Gunter APRN - PROFESSOR OF FRENCH 10 mL at 02/27/24 0815 sodium chloride flush 0.9 % injection 10 mL 10 mL IntraVENous PRN Jenny Gunter APRN - PROFESSOR OF FRENCH 0.9 % sodium chloride infusion IntraVENous PRN Jenny Gunter, ENERGY SCHEDULER - PROFESSOR OF FRENCH potassium chloride (KLOR-CON M) extended release tablet 40 mEq 40 mEq Oral PRN Jenny Gunter APRN - SANJU Or potassium bicarb-citric acid (EFFER-K) effervescent tablet 40 mEq 40 mEq Oral PRN Jenny Gunter, ENERGY SCHEDULER - SANJU magnesium sulfate 2000 mg in 50 mL IVPB premix 2,000 mg IntraVENous PRN Jenny Gunter APRN - SANJU enoxaparin (LOVENOX) injection 40 mg 40 mg SubCUTAneous Daily Jenny Gunter APRN - PROFESSOR OF FRENCH 40 mg at 02/27/24 0814 ondansetron (ZOFRAN-ODT) disintegrating tablet 4 mg 4 mg Oral Q8H PRN Jenny Gunter APRN - SANJU Or ondansetron (ZOFRAN) injection 4 mg 4 mg IntraVENous Q6H PRN Jenny Gunter APRN - PROFESSOR OF FRENCH 4 mg at 02/27/24 0815 polyethylene glycol (GLYCOLAX) packet 17 g 17 g Oral Daily PRN Jenny Gunter APRN - SANJU acetaminophen (TYLENOL) tablet 650 mg 650 mg Oral Q6H PRN Jenny Gunter APRN - PROFESSOR OF FRENCH 650 mg at 02/27/24 0128 Or acetaminophen (TYLENOL) suppository 650 mg 650 mg Rectal Q6H PRN Jenny Gunter APRN - SANJU LORazepam (ATIVAN) injection 4 mg 4 mg IntraVENous Q5 Min PRN Jenny Gunter APRN - CNP nicotine (NICODERM CQ) 14 MG/24HR 1 patch 1 patch TransDERmal Daily Jenny Gunter APRN - SANJU valproate (DEPACON) 1,500 mg in [...] revealed no abnormalities. RM DAVIS MD Diplomate, [place] [employer] and Neurology Diplomate, [place] Board of Clinical Neurophysiology Diplomate, [place] Board of Epilepsy Please note this is a preliminary report and updated daily. The final report will have a summary of behavior and electrographic findings with clinical correlation. [facility] EEG 24 hourOrdered By: Rm Davis on 02-27-[address] [facility] Work Phone: EKG Rhythm Stripon [address] [facility] PACEART [facility] PACEART [facility] PACEART [facility] HR [address] [facility] ESR Westergren method (Bld) [Velocity]on 02-27-2024 ESR (Bld) [Velocity] 9 mm/h [facility] Comment on above: Performed at [facility] [address] [place] [address] [facility] FIBRINOGENon 02-27-2024 FIBRINOGEN 402 mg/100ml Normal 155-475 [facility] Comment on above: Performed By: #### C BCWD, SCAN1 #### [facility] [address] [place] [address] Fibrinogenon 02-27-2024 Fibrinogen Coag (PPP) [Mass/Vol] 402 mg/dL [facility] Comment on above: Performed at [facility] [address] [place] [address] Fibrinogen Coag (PPP) [Mass/ Vol]on 02-27-2024 [facility] [employer] No Panel Informationon 02-26 [facility] [employer] OSMOLALITY URINEon 4 OSMOLALITY URINE see below Normal 250-750 [facility] Comment on above: Result Comment: Test was sent to an outside laboratory. Please refer to 'Reference' test. Performed By: #### C RP, WSR #### [facility] [employer] [address] [place] [address] Osmolality (U) [Osmolality]o n 02-27-2024 [facility] Osmolality, urineon 02-27-20 24 Osmolality (U) [Osmolality] see below [facility] Comment on above: Test was sent to an outside laboratory. Please refer to 'Reference' test. Performed at [facility] [address] [place] [address] PHOSPHORUSon 02-27-2024 Phosphate [Mass/Vol] 4.0 mg/dL Normal 2.4-4.7 [facility] Comment on above: Performed By: #### C BCWD, SCAN1 #### [facility] [address] [place] [address] POTASSIUM (URINE)on 02-27-20 24 POTASSIUM (URINE) 9.5 meq/l Normal [facility] Comment on above: Performed By: #### C RP, WSR #### [facility] [address] [place] [address] Path Review, Smearon 024 REVIEWED BY Estefani FUNES [facility] [employer] Comment on above: No schistocytes seen Performed at [facility] [address] [place] [address] Smear Review see below [facility] Comment on above: See Below [facility] Phosphate [Mass/Vol]on 02-26 [facility] Phosphoruson 02-27-2024 Phosphate [Mass/Vol] 4.0 mg/dL 2.4 - 4.7 mg/dL [facility] [employer] Comment on above: Performed at [facility] [address] [place] [address] Potassium, urine, randomon 1 Potassium (U) [Moles/Vol] 9.5 mmol/L [facility] Comment on above: Performed at [facility] [address] [place] [address] REFERENCE SPECIMENon 024 REFERENCE RANGE 50-1400 mOsm Normal [facility] TEST RESULT (WITH UNITS) 182 mOsm Normal [facility] ORIGINAL SAMPLE NUMBER [id number] Normal [facility] REFERENCE LOCATION see below Normal [facility] Comment on above: Result Comment: Perf ormed at [facility] [address] [place] [address] TEST(S) BEING PERFORMED URINE OSMO Normal [facility] Reference lab sampleon 02-26 ORIGINAL SAMPLE NUMBER [id number] [facility] [employer] REFERENCE LOCATION see below [facility] [employer] Comment on above: Performed at [facility] [address] [place] [address] Reference Range 50-1400 mOsm [employer] TEST RESULTS WITH UNITS 182 mOsm [facility] TEST(S) BEING PERFORMED URINE OSMO [employer] SED RATEon 02-27-2024 SED RATE 9 mm/hr Normal 0-10 [facility] Comment on above: Performed By: #### C RP, WSR #### [facility] [address] [place] [address] SODIUM (URINE)on 02-27-2024 Sodium (U) [Moles/Vol] mmol/L Normal [facility] Comment on above: Performed By: #### C RP, WSR #### [facility] [address] [place] [address] Sodium, urine, randomon 01-30 Sodium (U) [Moles/Vol] mmol/L meq/l [facility] Comment on above: Performed at [facility] [address] [place] [address] URINALYSIS W/ MICROon 2023 BACTERIA NONE SEEN Normal FEW/NONE SEEN [facility] Comment on above: Performed By: #### U AWM2 #### [facility] [address] [facility] [place] [address] CASTS NONE SEEN Normal NONE SEEN [facility] Comment on above: Performed By: #### U AWM2 #### [facility] [address] [place] [address] CASTS 2 NONE SEEN Normal [facility] Comment on above: Performed By: #### U AWM2 #### [facility] [address] [facility] [place] [address] Crystals LM Nom (Urine sed) NONE SEEN Normal NONE SEEN [facility] Comment on above: Performed By: #### U AWM2 #### [facility] [address] [place] [address] EPITHELIAL NONE SEEN Normal 3-5/hpf [facility] Comment on above: Performed By: #### U AWM2 #### [facility] [address] [facility] [place] [address] MISCELLANEOUS 2 NONE SEEN Normal [facility] Comment on above: Performed By: #### U AWM2 #### [facility] [address] [facility] [place] [address] RBC NONE SEEN Normal 0-2/hpf [facility] Comment on above: Performed By: #### U AWM2 #### [facility] [facility] [address] [facility] [place] [address] RENAL EPITHELIAL NONE SEEN Normal NONE SEEN [facility] Comment on above: Performed By: #### U AWM2 #### [facility] [address] [facility] [place] [address] WBC NONE SEEN Normal 0-4/hpf [facility] Comment on above: Performed By: #### U AWM2 #### [facility] [address] [facility] [place] [address] YEAST NONE SEEN Normal NONE SEEN [facility] Comment on above: Performed By: #### U AWM2 #### [facility] [address] [facility] [place] [address] Bilirubin Ql (U) Negative Normal NEGATIVE [facility] Comment on above: Performed By: #### U AWM2 #### [facility] [address] [place] [address] CHARACTER CLEAR Normal CLR-SL.CLOUD [facility] Comment on above: Performed By: #### U AWM2 #### [address] [address] Color (U) YELLOW Normal YELLOW-STRAW [facility] Comment on above: Performed By: #### U AWM2 #### [address] [address] Glucose Ql (U) Negative Normal NEGATIVE [facility] Comment on above: Performed By: #### U AWM2 #### [facility] [address] [place] [address] Hemoglobin Ql (U) Negative Normal NEGATIVE [facility] Comment on above: Performed By: #### U AWM2 #### [address] [address] Ketones Ql (U) Negative Normal NEGATIVE [facility] Comment on above: Performed By: #### U AWM2 #### [address] [address] LEUKOCYTES Negative Normal NEGATIVE [facility] Comment on above: Performed By: #### U AWM2 #### [address] [address] Nitrite Ql (U) Negative Normal NEGATIVE [facility] Comment on above: Performed By: #### U AWM2 #### [facility] [address] [place] [address] pH (U) 6.5 [pH] Normal 5.0 - 9.0 [facility] Comment on above: Performed By: #### U AWM2 #### [address] [address] Protein Ql (U) Negative Normal NEGATIVE [facility] Comment on above: Performed By: #### U AWM2 #### [address] [address] Specific gravity (U) [Rel density] 1.007 Normal 1.002-1.030 [facility] Comment on above: Performed By: #### U AWM2 #### [address] [address] Urobilinogen Qn (U) 1.0 {Butch'U}/dL Normal 0.0 - 1. 0 [facility] Comment on above: Performed By: #### U AWM2 #### [facility] [address] [place] [address] Urinalysis dipstick W Reflex Microscopic panel (U)on 02-27-2024 Bacteria, UA NONE SEEN FEW/NONE SEEN [facility] Bilirubin Ql (U) Negative NEGATIVE [facility] Casts LM.LPF (Urine sed) [#/Area] NONE SEEN /lpf [facility] Character (U) CLEAR CLR-SL.CLOUD [facility] Charcoal LM Ql (Urine sed) NONE SEEN [facility] Comment on above: Performed at [facility] [address] [place] [address] Color (U) YELLOW YELLOW-STRAW [facility] Crystals LM Ql (Urine sed) NONE SEEN NONE SEEN [facility] Epithelial Cells, UA NONE SEEN 3-5/hpf /hpf [facility] Epithelial cells.renal LM.HPF (Urine sed) [#/Area] NONE SEEN NONE SEEN [facility] Fungi.yeastlike LM Ql (Urine sed) NONE SEEN NONE SEEN [facility] Glucose Auto test strip Ql (U) Negative NEGATIVE mg/dl [facility] Hemoglobin Auto test strip Ql (U) Negative NEGATIVE [facility] Ketones Auto test strip Ql (U) Negative NEGATIVE [facility] Leukocyte esterase Auto test strip Ql (U) Negative NEGATIVE [facility] Nitrite Auto test strip Ql (U) Negative NEGATIVE [facility] pH (U) 6.5 [pH] 5.0 - 9.0 [facility] Protein (U) [Mass/Vol] Negative NEGATIVE mg/dl [facility] RBC LM.HPF (Urine sed) [#/Area] NONE SEEN 0-2/hpf /hpf [facility] Specific [place], UA 1.007 1.002 - 1.[address] [facility] Urobilinogen, Urine 1.0 [facility] WBC LM.HPF (Urine sed) [#/Area] NONE SEEN 0-4/hpf /hpf [facility] Urine Drug Screenon 02-27-20 24 Amphetamines [...] are for medical use only. Performed at [facility] [address] [place] [address] Opiates Screen Ql (U) Negative NEGATIVE [facility] Oxycodone Negative NEGATIVE [facility] Phencyclidine Ql (U) Negative NEGATIVE [facility] VITAMIN D TOTAL 25 (OH)on VITAMIN D TOTAL 25 (OH) 32 ng/ml Normal 30-100 [facility] Comment on above: Result Comment: Lashanda min D Status Range Deficiency <20 ng/ml Insuffiency 20-30 ng/ml Sufficiency 30-100 ng/ml Toxicity >100 ng/ml Performed By: #### C VFLU #### [facility] [address] [place] [address] Vitamin D 25 Hydroxyon 02-26 25-hydroxyvitamin D3 [Mass/Vol] 32 ng/mL 30 - 100 ng/ml [facility] Comment on above: Vitamin D Status Ran ge Deficiency <20 ng/ml Insuffiency 20-30 ng/ml Sufficiency 30-100 ng/ml Toxicity >100 ng/ml Performed at [facility] [address] [place] [address] [place] [address] Basic Metabolic Profon 02-25 Anion gap [Moles/Vol] 15 mmol/L Normal 9-16 [facility] Comment on above: Performed By: #### T MARY CHEN, BMP #### [facility] [address] [place], [place] [address]83 [employer] Operator: Ramo Jesus MD BUN/CRE Ratio 11 Normal 9-20 [facility] Comment on above: Performed By: #### T MARY CHEN, BMP #### [facility] [address] [place], [place] 68[address]483 [employer] Operator: Ramo Jesus MD Calcium [Mass/Vol] 9.3 mg/dL Normal 8.6-10.4 [facility] Comment on above: Performed By: #### T MARY CHEN, BMP #### [facility] [address] [place], [place] 1836683 [employer] Operator: Ramo Jesus MD Chloride [Moles/Vol] 97 mmol/L Low 98-107 [facility] Comment on above: Performed By: #### T MARY CHEN, BMP #### [facility] [address] [place], [place] 356[address]83 [employer] Operator: Ramo Jesus MD CO2 [Moles/Vol] 23 mmol/L Normal 20-31 [facility] Comment on above: Performed By: #### T MARY CHEN, BMP #### [facility] [address] [place], [place] [address] [employer] Operator: Ramo Jesus MD Creatinine [Mass/Vol] 1.2 mg/dL Normal 0.70-1.20 [facility] Comment on above: Performed By: #### T MARY CHEN, BMP #### [facility] [address] [place] [address] [employer] Operator: Ramo Jesus MD GFR/1.73 sq M.predicted among non-blacks MDRD (S/P/Bld) [Vol rate/Area] 80 mL/min/{1.73_m2} Normal >60 [facility] Comment on above: Result Comment: These [...] T MARY CHEN, BMP #### [facility] [address] [place] [address] [place] [address] [employer] Operator: Ramo Jesus MD Glucose [Mass/Vol] 100 mg/dL High 74-99 [facility] Comment on above: Performed By: #### MARY RODAS, BMP #### [facility] [address] [place] [address] [employer] Operator: Ramo Jesus MD Potassium [Moles/Vol] 3.3 mmol/L Low 3.7-5.3 [facility] Comment on above: Performed By: #### MARY RODAS, BMP #### [address] [place] [address] [employer] Operator: Ramo Jesus MD Sodium [Moles/Vol] 135 mmol/L Low 136-145 [facility] Comment on above: Performed By: #### MARY RODAS, BMP #### [facility] [address] [place] [address] [employer] Operator: Ramo Jesus MD Urea nitrogen [Mass/Vol] 13 mg/dL Normal 6-20 [facility] Comment on above: Performed By: #### MARY RODAS, BMP #### [facility] [address] [place] [address] [employer] Operator: Ramo Jesus MD C-Reactive Proteinon 024 CRP [Mass/Vol] 81.9 mg/L High 0.0-5.0 [facility] Comment on above: Performed By: #### S ED, CRP #### [facility] [address] [place] [address] [place] [address] [employer] Operator: Ramo Jesus MD CBC with Diffon 02-26-2024 Abs. Basophil 0.04 k/uL Normal 0.0-0.2 [facility] Comment on above: Performed By: #### T MARY CHEN, BMP #### [address] [place] [address] [employer] Operator: Ramo Jesus MD Abs.Imm.Granulocyte 0.04 k/uL Normal 0.00-0.30 [facility] Comment on above: Performed By: #### T MARY CHEN, BMP #### [address] [place], [place] [address] [employer] Operator: Ramo Jesus MD Abs.Neutrophil (Seg) 2.58 k/uL Normal 1.50-8.10 [facility] Comment on above: Performed By: #### MARY RODAS, BMP #### [address] [place] [address] [employer] Operator: Ramo Jesus MD Basophils/100 WBC (Bld) 1 % Normal 0-2 [facility] Comment on above: Performed By: #### T MARY CHEN, BMP #### [address] [place] [address] [employer] Operator: Ramo Jesus MD Eosinophils (Bld) [#/Vol] 0.08 10*3/uL Normal 0.00-0.44 [facility] Comment on above: Performed By: #### MARY RODAS, BMP #### [facility] [address] [place] [address] [employer] Operator: Ramo Jesus MD Eosinophils/100 WBC (Bld) 2 % Normal 1-4 [facility] Comment on above: Performed By: #### MARY RODAS, BMP #### [facility] [address] [place], [place] 2159483 [employer] Operator: Ramo Jesus MD Immature granulocytes/100 WBC (Bld) 1 % High 0 [facility] Comment on above: Performed By: #### MARY RODAS, BMP #### [facility] [address] [place], [place] 7[address]183 [employer] Operator: Ramo Jesus MD Lymphocytes (Bld) [#/Vol] 1.03 10*3/uL Low 1.10-3.70 [facility] Comment on above: Performed By: #### MARY RODAS, BMP #### [address] [place], [place] 0757483 [employer] Operator: Ramo Jesus MD Lymphocytes/100 WBC (Bld) 25 % Normal 24-43 [facility] Comment on above: Performed By: #### MARY RODAS, BMP #### [facility] [address] [place], [place] 1267783 [employer] Operator: Ramo Jesus MD Monocytes (Bld) [#/Vol] 0.33 10*3/uL Normal 0.10-1.20 [facility] Comment on above: Performed By: #### MARY RODAS, BMP #### [facility] [address] [place], [place] [address]3783 [employer] Operator: Ramo Jesus MD Monocytes/100 WBC (Bld) 8 % Normal 3-12 [facility] Comment on above: Performed By: #### MARY RODAS, BMP #### [facility] [address] [place] [address] [employer] Operator: Ramo Jesus MD Morphology Gianni (Bld) [Interp] Normal Normal [facility] Comment on above: Performed By: #### T MARY CHEN, BMP #### [address] [place], [place] [address]83 [employer] Operator: Ramo Jesus MD Neutrophil (Seg) 63 % Normal 36-65 [facility] Comment on above: Performed By: #### T MARY CHEN, BMP #### [address] [place], [place] [address] [employer] Operator: Ramo Jesus MD Platelet, Fluoresc. 117 k/uL Low 138-453 [facility] Comment on above: Performed By: #### T MARY CHEN, BMP #### [address] [place], [facility]83 [employer] Operator: Ramo Jesus MD PLT, Immature Fract. 3.6 % Normal 1.1-10.3 [facility] Comment on above: Performed By: #### T MARY CHEN, BMP #### [address] [place], [place] [address] [employer] Operator: Ramo Jesus MD Erythrocyte distribution width (RBC) [Ratio] 12.0 % Normal 11.8-14.4 [facility] Comment on above: Performed By: #### T MARY CHEN, BMP #### [address] [place], [facility]83 [employer] Operator: Ramo Jesus MD Hematocrit (Bld) [Volume fraction] 41.0 % Normal 40.7-50.3 [facility] Comment on above: Performed By: #### T MARY CHEN, BMP #### [address] [place], [facility]83 [employer] Operator: Ramo Jesus MD Hemoglobin (Bld) [Mass/Vol] 14.7 g/dL Normal 13.0-17.0 [facility] Comment on above: Performed By: #### T MARY CHEN, BMP #### [address] [place], [place] [address]83 [employer] Operator: Ramo Jesus MD MCH (RBC) [Entitic mass] 31.1 pg Normal 25.2-33.5 [facility] Comment on above: Performed By: #### MARY RODAS, BMP #### [facility] [address] [place], [place] 2146383 [employer] Operator: Ramo Jesus MD MCHC (RBC) [Mass/Vol] 35.9 g/dL High 28.4-34.8 [facility] Comment on above: Performed By: #### MARY RODAS, BMP #### [address] [place], [place] 0570483 [employer] Operator: Ramo Jesus MD MCV (RBC) [Entitic vol] 86.9 fL Normal 82.6-102.9 [facility] Comment on above: Performed By: #### MARY RODAS, BMP #### [address] [place], [facility]83 [employer] Operator: Ramo Jesus MD NRBC Automated 0.0 per 100 WBC Normal 0.0 [facility] Comment on above: Performed By: #### MARY RODAS, BMP #### [address] [place], [facility]83 [employer]: Ramo Jesus MD Platelet Count See Reflexed IPF Result Normal 138-453 [facility] Comment on above: Performed By: #### MARY RODAS, BMP #### [facility] [address] [place], [place] [address]83 [employer] Operator: Ramo Jesus MD RBC (Bld) [#/Vol] 4.72 10*6/uL Normal 4.21-5.77 [facility] Comment on above: Performed By: #### MARY RODAS, BMP #### [facility] [address] [place] [address] [employer] Operator: Ramo Jesus MD WBC (Bld) [#/Vol] 4.1 10*3/uL Normal 3.5-11.3 [facility] Comment on above: Performed By: #### T MARY CHEN, BMP #### [facility] [address] [place] [address] [employer] Operator: Ramo Jesus MD CT HEAD WO CONTRASTon [...] Sam Rockwell DO 02/26/24 Final result Normal [facility] CTA HEAD NECK W CONTRASTon 1 [...] Sam Rockwell DO 02/26/24 Final result Normal [facility] Glucose, Whole Bloodon 02-25 Glucose [Mass/Vol] 105 mg/dL High 74-100 [facility] Liver Profileon 02-26-2024 Albumin [Mass/Vol] 4.1 g/dL Normal 3.5-5.2 [facility] Comment on above: Performed By: #### L IVP ####[address] , [place] 3494283 Lab Director: Ramo Jesus MD Albumin/Glob Ratio 1.3 Normal 1.0-2.5 [facility] Comment on above: Performed By: #### L IVP ####[address] [place] [address] Lab Director: Ramo Jesus MD Alkaline Phos 97 U/L Normal 40-129 [facility] Comment on above: Performed By: #### L IVP ####[facility] [place] [address] Lab Director: Ramo Jesus MD ALT [Catalytic activity/Vol] 45 U/L Normal 10-50 [facility] Comment on above: Performed By: #### L IVP ####[facility] , [place] 4173883 Lab Director: Ramo Jesus MD AST [Catalytic activity/Vol] 54 U/L High 10-50 [facility] Comment on above: Performed By: #### L IVP ####[address] , [place] 7534883 Lab Director: Ramo Jesus MD Bilirubin [Mass/Vol] 1.1 mg/dL Normal 0.00-1.20 [facility] Comment on above: Performed By: #### L IVP ####[address] [place] [address] Lab Director: Ramo Jesus MD Bilirubin, Indirect 0.6 mg/dL Normal 0.0-1.0 [facility] Comment on above: Performed By: #### L IVP ####[address] , [place] [id number] Lab Director: Ramo Jesus MD Bilirubin.indirect [Mass/Vol] 0.5 mg/dL High 0.00-0.30 [facility] Comment on above: Performed By: #### L IVP ####[address] , [place] 0440483 Lab Director: Ramo Jesus MD Protein [Mass/Vol] 7.2 g/dL Normal 6.6-8.7 [facility] Comment on above: Performed By: #### L IVP ####[address] , [place] 9[address]83 Lab Director: Ramo Jesus MD Prolactinon 02-26-2024 Prolactin 4.70 ng/mL Normal 4.04-15.2 [facility] Comment on above: Result Comment: The presence of macroprolactin may cause interference in female patients with various endocrinological diseases or during . Performed By: #### P ROL #### [facility] [address] [place], [place] 5173208 [employer] Operator: Ra Kilpatrick MD Sedimentation Rateon 024 Sedimentation Rate 17 mm/Hr High 0-15 [facility] Comment on above: Performed By: #### S ED, CRP #### [facility] [address] [place], [place] 2177883 [employer] Operator: Ramo Jesus MD Troponinon 02-26-2024 Troponin, High Sens 9 ng/L Normal 0-22 [facility] Comment on above: Result Comment: High Sensitivity Troponin values cannot be compared with other Troponin methodologies. Performed By: #### T GUSTAVO, CDP, BMP #### [facility] [address] [place], [place] 7212183 [employer] Operator: Ramo Jesus MD UA w/Reflex Cultureon 2023 Bilirubin, SemiQt,Ur Negative Normal NEG [facility] Comment on above: Performed By: #### U AX, UMICAO #### [facility] [address] [place], [place] [address]37083 [employer] Operator: Ramo Jesus MD Blood, Urine Negative Normal NEG [facility] Comment on above: Performed By: #### U AX, UMICAO #### [facility] [address] [place], [place] [address]252183 [employer] Operator: Ramo Jesus MD Clarity (U) Clear Normal CLEAR [facility] Comment on above: Performed By: #### U AX, UMICAO #### [facility] [address] [place] [address] [employer] Operator: Ramo Jesus MD Color (U) Yellow Normal YEL [facility] Comment on above: Performed By: #### U AX, UMICAO #### [facility] [address] [place], [place] [address]86183 [employer] Operator: Ramo Jesus MD Glucose Ql (U) Negative Normal NEG [facility] Comment on above: Performed By: #### U AX, UMICAO #### [facility] [address] [place], [place] 8832883 [employer] Operator: Ramo Jesus MD Ketones Ql (U) 2+ mg/dL Abnormal NEG [facility] Comment on above: Performed By: #### U AX, UMICAO #### [facility] [address] [place], [place] 7059383 [employer] Operator: Ramo Jesus MD Leukocyte esterase Test strip Ql (U) Negative Normal NEG [facility] Comment on above: Performed By: #### U AX, UMICAO #### [facility] [address] [place] [address] [address] [place], [place] 2173183 [employer] Operator: Ramo Jesus MD Nitrite,Ur Negative Normal NEG [facility] Comment on above: Performed By: #### U AX, UMICAO #### [facility] [address] [place] [address] [place] [place], [place] 103[address]83 [employer] Operator: Ramo Jesus MD PH,Ur 6.0 Normal 5.0-9.0 [facility] Comment on above: Performed By: #### U AX, UMICAO #### [facility] [address] [place] [address] [address] [place], [place] [address]83 [employer] Operator: Ramo Jesus MD Protein Ql (U) Negative Normal NEG [facility] Comment on above: Performed By: #### U AX, UMICAO #### [facility] [address] [place] [address] [place] [address] [employer] Operator: Ramo Jesus MD Spec. [place],Ur 1.010 Normal 1.010-1.020 [facility] Comment on above: Performed By: #### U AX, UMICAO #### [facility] [address] [place] [address] [address] [place], [place] 2392883 [employer] Operator: Ramo Jesus MD Urobilinogen,Ur Normal Normal 0.0-1.0 [facility] Comment on above: Performed By: #### U AX, UMICAO #### [facility] [address] [place] [address] [address] [place], [place] 6[address]83 [employer] Operator: Ramo Jesus MD Urinalysis,Microon 4 Bacteria TRACE Abnormal NONE [facility] Comment on above: Performed By: #### U AX, UMICAO ####[address] , [place] [address]83 Lab Director: Ramo Jesus MD Epithelial cells LM Ql (Urine sed) 0 TO 2 Normal 0-5 [facility] Comment on above: Performed By: #### U AX, UMICAO ####[address] , [place] 87[address]483 Lab Director: Ramo Jesus MD Urine RBC's 0 TO 2 Normal 0-2 [facility] Comment on above: Performed By: #### U AX, UMICAO ####[address] [place] [address]483 Lab Director: Ramo Jesus MD Urine WBC's 0 TO 2 Normal 0-5 [facility] Comment on above: Performed By: #### U AX, UMICAO ####[address] [place] [address] Lab Director: Ramo Jesus MD XR CHEST PORTABLEon 02-26-20 24 XR CHEST PORTABLE EXAMINATION: ONE XRAY VIEW OF THE CHEST 02/26/2024 1:06 pm COMPARISON: None. HISTORY: ORDERING SYSTEM PROVIDED HISTORY: syncope TECHNOLOGIST PROVIDED HISTORY: syncope 33-year-old male with syncope FINDINGS: AP portable view of the chest cardiac monitor leads overlie the chest Trachea midline. No pneumothorax. No acute focal airspace consolidation or pleural effusions. Cardiac and mediastinal contours within normal limits. No acute osseous abnormality. IMPRESSION: No acute focal airspace consolidation or effusions. Interpreted by: Rubio Suarez MD Signed by: Rubio Suarez MD 02/26/24 Final result Normal [facility] OPERATIVE REPORTon 3 OPERATIVE REPORT [address] [address] OPERATIVE REPORT PATIENT NAME: ETHAN DONALD : 1990 MED REC NO: [id number] ROOM: ACCOUNT NO: [id number] ADMIT DATE: 03/13/2023 PROVIDER: Jon Reynoso DATE OF PROCEDURE: 03/13/2023 PREOPERATIVE DIAGNOSES: 1. Subluxing patella. 2. Chondromalacia. 3. 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 POSTOPERATIVE DIAGNOSES: 1. Subluxing patella. 2. Chondromalacia. 3. 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 PROCEDURES PERFORMED: Arthroscopy of right knee [...] was then oversewn with 2-0 Vicryl interrupted scfuae-ij-[id number] sutures. Skin margins were injected with 0.5% [...] in two weeks. JON REYNOSO PH/[email or web address]_T Doc#: [id number] CC: Normal [facility] XR KNEE RIGHT (1-2 VIEWS)on 03-13-2023 [...] Alfonso Charles MD 03/13/23 Final result Normal [facility] GROUP A STREP CULTUREon 07-30 S. pyogenes Ag Ql (Unsp spec) Culture Observations: NEGATIVE FOR GROUP A STREPTOCOCCUS. Normal [facility] Comment on above: Performed By: #### S SCRN, GRASTCX #### [facility] [address] [place] [address] Dr. Pratibha Stevenson STREPT SCREENon 08-11-2022 STREP SCREEN A Negative Normal NEGATIVE [facility] Comment on above: Performed By: #### S SCRN, GRASTCX #### [facility] [address] [place] [address] Dr. Pratibha Stevenson AMYLASEon 07-23-2022 Amylase [Catalytic activity/Vol] 50 U/L Normal 25-115 [facility] Comment on above: Performed By: #### E RUR #### [facility] Laboratory [address] [place] [address] Dr. Pratibha Stevenson CBC AUTO DIFFon 07-23-2022 BASO # 0.1 103/ul Normal 0.0-0.1 [facility] Comment on above: Performed By: #### L ACT #### [facility] [address] [place] [address] Dr. Pratibha Stevenson Basophils/100 WBC (Bld) 1.0 % Normal 0.2-2.0 [facility] Comment on above: Performed By: #### L ACT #### [facility] [address] [place] [address] Dr. Pratibha Stevenson EO # 0.1 103/ul Normal 0.0-0.7 [facility] Comment on above: Performed By: #### L ACT #### [facility] [address] [place] [address] Dr. Pratibha Stevenson Eosinophils/100 WBC (Bld) 1.7 % Normal 0.9-7.0 [facility] Comment on above: Performed By: #### L ACT #### [facility] [address] [place] [address] Dr. Pratibha Stevenson Erythrocyte distribution width (RBC) [Ratio] 12.1 % Normal 11.0-15.0 [facility] Comment on above: Performed By: #### L ACT #### [facility] [address] [place] [address] Dr. Pratibha Stevenson Hematocrit (Bld) [Volume fraction] 45.9 % Normal 42.0-54.0 [facility] Comment on above: Performed By: #### L ACT #### [facility] [address] [place] [address] Dr. Pratibha Stevenson Hemoglobin (Bld) [Mass/Vol] 15.6 g/dL Normal 14.0-18.0 [facility] Comment on above: Performed By: #### L ACT #### [facility] [address] [place] [address] Dr. Pratibha Stevenson IG # 0.01 10e3/ul Normal 0.00-0.03 [facility] Comment on above: Performed By: #### L ACT #### [facility] [address] [place] [address] Dr. Pratibha Stevenson IG % 0.1 % Normal 0.0-0.5 [facility] Comment on above: Performed By: #### L ACT #### [facility] [address] [place] [address] Dr. Pratibha Stevenson LYMPH # 2.0 103/ul Normal 1.2-3.8 [facility] Comment on above: Performed By: #### L ACT #### [facility] [address] [place] [address] Dr. Pratibha Stevenson Lymphocytes/100 WBC (Bld) 28.8 % Normal 20.5-60.0 [facility] Comment on above: Performed By: #### L ACT #### [facility] [address] [place] [address] Dr. Pratibha Stevenson MANUAL DIFF REQ NO Normal [facility] Comment on above: Performed By: #### L ACT #### [facility] [address] [address] [address] Pratibha Stevenson MCH (RBC) [Entitic mass] 31.3 pg Normal 25.9-34.0 [facility] Comment on above: Performed By: #### L ACT #### [facility] [address] [address] [address] Pratibha Stevenson MCHC (RBC) [Mass/Vol] 34.0 g/dL Normal 29.9-35.2 [facility] Comment on above: Performed By: #### L ACT #### [facility] [address] [place] [address] Dr. Pratibha Stevenson MCV (RBC) [Entitic vol] 92.2 fL Normal 80.0-94.0 [facility] Comment on above: Performed By: #### L ACT #### [facility] [address] [place] [address] Dr. Pratibha Stevenson MONO # 0.3 103/ul Normal 0.3-0.8 [facility] Comment on above: Performed By: #### L ACT #### [facility] [address] [place] [address] Dr. Pratibha Stevenson Monocytes/100 WBC (Bld) 4.3 % Normal 1.7-12.0 [facility] Comment on above: Performed By: #### L ACT #### [facility] [address] [place] [address] Dr. Pratibha Stevenson NEUT # 4.5 103/ul Normal 1.4-6.5 [facility] Comment on above: Performed By: #### L ACT #### [facility] [address] [place] [address] Dr. Pratibha Stevenson Neutrophils/100 WBC (Bld) 64.1 % Normal 43.0-75.0 [facility] Comment on above: Performed By: #### L ACT #### [facility] [address] [place] [address] Dr. Pratibha Stevenson Platelet mean volume (Bld) [Entitic vol] 10.3 fL Normal 9.5-13.5 [facility] Comment on above: Performed By: #### L ACT #### [facility] [address] [place], [place] [address] Dr. Pratibha Stevenson PLT 219 103/ul Normal 150-450 [facility] Comment on above: Performed By: #### L ACT #### [facility] [address] [place], [place] [address] Dr. Pratibha Stevenson RBC 4.98 106/ul Normal 4.70-6.10 [facility] Comment on above: Performed By: #### L ACT #### [facility] [address] [place], [place] [address] Dr. Pratibha Stevenson WBC 7.1 103/ul Normal 4.0-11.0 [facility] Comment on above: Performed By: #### L ACT #### [facility] [address] [place], [place] [address] ABD/PELV W CONon [...] YING WALTON Date: 2022-07-22 23:53 Normal [facility] DRUG SCREEN RAPID (URINE)on 07-23-2022 AMP Negative Normal NEGATIVE [facility] Comment on above: Performed By: #### E RUR #### [facility] [address] [place] [address] Dr. Pratibha Stevenson BAR Negative Normal NEGATIVE [facility] Comment on above: Performed By: #### E RUR #### [facility] [address] [place] [address] Dr. Pratibha Stevenson BUP Negative Normal NEGATIVE [facility] Comment on above: Performed By: #### E RUR #### [facility] [address] [place] [address] Dr. Pratibha Stevenson BZO Negative Normal NEGATIVE [facility] Comment on above: Performed By: #### E RUR #### [facility] [address] [place] [address] Dr. Pratibha Stevenson EMELY Negative Normal NEGATIVE [facility] Comment on above: Performed By: #### E RUR #### [facility] [address] [place] [address] Dr. Pratibha Stevenson CUT-OFFS SEE BELOW Normal [facility] Comment on above: Result Comment: AMP [...] ng/mL Performed By: #### E RUR #### [facility] [address] [place] [address] Dr. Pratibha Stevenson DRUG CUT HEADER DRUG CLASS TEST SYST EM CUT-OFF CONCENTRATIONS ARE FOLLOWS: Normal [facility] Comment on above: Performed By: #### E RUR #### [facility] [address] [place] [address] Dr. Pratibha Stevenson mAMP Negative Normal NEGATIVE [facility] Comment on above: Performed By: #### E RUR #### [facility] [address] [place] [address] Dr. Pratibha Stevenson MTD Negative Normal NEGATIVE [facility] Comment on above: Performed By: #### E RUR #### [facility] [address] [place] [address] Dr. Pratibha Stevenson OPI Positive Abnormal NEGATIVE [facility] Comment on above: Performed By: #### E RUR #### [facility] [address] [place] [address] Dr. Pratibha Stevenson OXY Negative Normal NEGATIVE [facility] Comment on above: Performed By: #### E RUR #### [facility] [address] [place] [address] Dr. Pratibha Stevenson PCP Negative Normal NEGATIVE [facility] Comment on above: Performed By: #### E RUR #### [facility] [address] [place] [address] Dr. Pratibha Stevenson PPX Negative Normal NEGATIVE [facility] Comment on above: Performed By: #### E RUR #### [facility] [address] [place] [address] Dr. Pratibha Stevenson TCA Positive Abnormal NEGATIVE [facility] Comment on above: Performed By: #### E RUR #### [facility] [address] [place] [address] Dr. Pratibha Stevenson THC Positive Abnormal NEGATIVE [facility] Comment on above: Performed By: #### E RUR #### [facility] [address] [place] [address] Dr. Pratibha Stevenson ER URINE PROFILEon 3 Bilirubin Ql (U) Negative Normal NEGATIVE [facility] Comment on above: Performed By: #### E RUR #### [facility] [address] [place] [address] Dr. Pratibha Stevenson Clarity (U) CLEAR Normal CLEAR [facility] Comment on above: Performed By: #### E RUR #### [facility] [address] [place] [address] Dr. Pratibha Stevenson Color (U) LT. YELLOW Normal YELLOW [facility] Comment on above: Performed By: #### E RUR #### [facility] [address] [place] [address] Dr. Pratibha Stevenson ERUAHRanjan A micrscopic examination will be performed if indicated. Normal [facility] Comment on above: Performed By: #### E RUR #### [facility] [address] [place] [address] Dr. Pratibha Stevenson Glucose Ql (U) Negative Normal NEGATIVE [facility] Comment on above: Performed By: #### E RUR #### [facility] [address] [place] [address] Dr. Pratibha Stevenson Hemoglobin Ql (U) Negative Normal NEGATIVE [facility] Comment on above: Performed By: #### E RUR #### [facility] [address] [place] [address] Dr. Pratibha Stevenson Ketones Ql (U) Negative Normal NEGATIVE [facility] Comment on above: Performed By: #### E RUR #### [facility] [address] [place] [address] Dr. Pratibha Stevenson LEUKOCYTES Negative Normal NEGATIVE [facility] Comment on above: Performed By: #### E RUR #### [facility] [address] [place] [address] Dr. Pratibha Stevenson Nitrite Ql (U) Negative Normal NEGATIVE [facility] Comment on above: Performed By: #### E RUR #### [facility] [address] [place] [address] Dr. Pratibha Stevenson pH (U) 5.5 [pH] Normal 5-9 [facility] Comment on above: Performed By: #### E RUR #### [facility] [address] [place] [address] Dr. Pratibha Stevenson SPEC GRAVITY <=1.005 Abnormal 1.005-<=1.025 [facility] Comment on above: Performed By: #### E RUR #### [facility] [address] [place] [address] Dr. Pratibha Stevenson UA PROTEIN Negative Normal NEGATIVE/ TRACE [facility] Comment on above: Performed By: #### E RUR #### [facility] [address] [place] [address] Dr. Pratibha Stevenson UR MICRO IND NOT INDICATED Normal [facility] Comment on above: Performed By: #### E RUR #### [facility] [address] [place] [address] Dr. Pratibha Stevenson Urobilinogen Qn (U) 0.2 {Butch'U}/dL Normal 0.2 - 1. 0 [facility] Comment on above: Performed By: #### E RUR #### [facility] [address] [place] [address] Dr. Pratibha Stevenson LIPASEon 07-23-2022 Lipase [Catalytic activity/Vol] 126.0 U/L Normal 73.0-393.0 [facility] Comment on above: Performed By: #### E RUR #### [facility] [address] [place] [address] Dr. Pratibha Stevenson PROF 14(COMP METB)on 023 Albumin [Mass/Vol] 4.2 g/dL Normal 3.4-5.0 [facility] Comment on above: Performed By: #### E RUR #### [facility] [address] [place] [address] Dr. Pratibha Stevenson Albumin/Globulin [Mass ratio] 1.4 {ratio} Normal [facility] Comment on above: Performed By: #### E RUR #### [facility] [address] [place] [address] Dr. Pratibha Stevenson ALP [Catalytic activity/Vol] 87 U/L Normal 46-116 [facility] Comment on above: Performed By: #### E RUR #### [facility] [address] [place] [address] Dr. Pratibha Stevenson ALT [Catalytic activity/Vol] 20 U/L Normal 16-63 [facility] Comment on above: Performed By: #### E RUR #### [facility] [address] [place] [address] Dr. Pratibha Stevenson Anion gap [Moles/Vol] 12.8 mmol/L Normal [facility] Comment on above: Performed By: #### E RUR #### [facility] [address] [place] [address] Dr. Pratibha Stevenson AST [Catalytic activity/Vol] 18 U/L Normal 15-37 [facility] Comment on above: Performed By: #### E RUR #### [facility] [address] [place] [address] Dr. Pratibha Stevenson Bilirubin [Mass/Vol] 0.5 mg/dL Normal 0.2-1.0 [facility] Comment on above: Performed By: #### E RUR #### [facility] [address] [place] [address] Dr. Pratibha Stevenson Calcium [Mass/Vol] 9.2 mg/dL Normal 8.5-10.1 [facility] Comment on above: Performed By: #### E RUR #### [facility] [address] [place] [address] Dr. Pratibha Stevenson Chloride [Moles/Vol] 101 mmol/L Normal 98-107 [facility] Comment on above: Performed By: #### E RUR #### [facility] [address] [place] [address] Dr. Pratibha Stevenson CO2 [Moles/Vol] 24.7 mmol/L Normal 21.0-32.0 [facility] Comment on above: Performed By: #### E RUR #### [facility] [address] [place] [address] Dr. Pratibha Stevenson Creatinine [Mass/Vol] 1.20 mg/dL Normal 0.70-1.30 [facility] Comment on above: Performed By: #### E RUR #### [facility] [address] [place] [address] Dr. Pratibha Stevenson EGFR-AF PUERTO RICAN >60 Normal >=60 [facility] Comment on above: Performed By: #### E RUR #### [facility] [address] [address] [address] Pratibha Stevenson EGFR-NON AF PUERTO RICAN >60 Normal >=60 [facility] Comment on above: Performed By: #### E RUR #### [facility] [address] [address] [address] Pratibha Stevenson Globulin (S) [Mass/Vol] 3.1 g/dL Normal [facility] Comment on above: Performed By: #### E RUR #### [facility] [address] [address] [address] Pratibha Stevenson Glucose [Mass/Vol] 128 mg/dL Critically high 74-106 [facility] Comment on above: Performed By: #### E RUR #### [facility] [address] [address] [address] Pratibha Stevenson Potassium [Moles/Vol] 3.5 mmol/L Normal 3.5-5.1 [facility] Comment on above: Performed By: #### E RUR #### [facility] [address] [address] [address] Pratibha tSevenson Protein [Mass/Vol] 7.3 g/dL Normal 6.4-8.2 [facility] Comment on above: Performed By: #### E RUR #### [facility] [address] [address] [address] Pratibha Stevenson Sodium [Moles/Vol] 135 mmol/L Critically low 136-145 [facility] Comment on above: Performed By: #### E RUR #### [facility] [address] [address] [address] Pratibha Stevenson Urea nitrogen [Mass/Vol] 10.0 mg/dL Normal 7.0-18.0 [facility] Comment on above: Performed By: #### E RUR #### [facility] [address] [address] [address] Pratibha Stevenson Urea nitrogen/Creatinine [Mass ratio] 8.3 mg/mg Normal [facility] Comment on above: Performed By: #### E RUR #### [facility] [address] [address] [address] Pratibha Stevenson Screenson 07-22-2022 Screens [id number]. 00CD:[address] [facility] Screens [id number]#1. 00CD:[address] [facility] Patient Educationon 07-22-19 Patient Education Urology [...] Rhubarb. ? Beets. ? Potato chips and welsh fries. ? Nuts. ? If you regularly take a diuretic medicine, make sure to eat at least 1?2 fruits or vegetables high in potassium each day. These include: ? Avocado. ? Banana. ? [place], prune, carrot, or tomato juice. ? Baked [...] here today for a hospital f/u from [facility] for a kidney stone. CT scan done 07/20/22 shows Bilateral nonobstructive renal calculi. No hydronephrosis or hydroureter hepatomegaly. Pts previous DX: kidney stone, ureteral stone. IPSS 26. Pt states he started feeling pain on Monday in the right upper back area and presented to the ER on Monday. Pt [place] CT [place] [facility] 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 No hydro on f/u renal US. No passage of fragments noted. Follow-up With When Contact Information Handy WILEY, Shirley Menchaca, URL, URO Additional Instructions: Patient Education Dietary Guidelines to Help Prevent Kidney Stones IShalini, personally scribed for Dr. Murrell on 07/21/2022 [...] calculus (05/08/2022) (more content not included)... Normal [facility] Comment on above: Result Comment: Elec tronically Signed By: Shirley Murrell MD\.br\Date and Time Signed: 07/21/22 16:55 EDT\.br\Electronically Co-Signed By: Shalini Macias\.br\Date and Time Co-Signed: 07/21/22 09:40 EDT CBC AUTO DIFFon 07-20-2022 BASO # 0.1 103/ul Normal 0.0-0.1 [facility] Comment on above: Performed By: #### C BC #### [facility] [address] [address] [address] Pratibha Stevenson Basophils/100 WBC (Bld) 0.7 % Normal 0.2-2.0 [facility] Comment on above: Performed By: #### C BC #### [facility] [address] [place] [address] Dr. Pratibha Stevenson EO # 0.2 103/ul Normal 0.0-0.7 [facility] Comment on above: Performed By: #### C BC #### [facility] [address] [place] [address] Dr. Pratibha Stevenson Eosinophils/100 WBC (Bld) 2.4 % Normal 0.9-7.0 [facility] Comment on above: Performed By: #### C BC #### [facility] [address] [place] [address] Dr. Pratibha Stevenson Erythrocyte distribution width (RBC) [Ratio] 12.4 % Normal 11.0-15.0 [facility] Comment on above: Performed By: #### C BC #### [facility] [address] [place] [address] Dr. Pratibha Stevenson Hematocrit (Bld) [Volume fraction] 45.8 % Normal 42.0-54.0 [facility] Comment on above: Performed By: #### C BC #### [facility] [address] [place] [address] Dr. Pratibha Stevenson Hemoglobin (Bld) [Mass/Vol] 15.6 g/dL Normal 14.0-18.0 [facility] Comment on above: Performed By: #### C BC #### [facility] [address] [place] [address] Dr. Pratibha Stevenson IG # 0.03 10e3/ul Normal 0.00-0.03 [facility] Comment on above: Performed By: #### C BC #### [facility] [address] [place] [address] Dr. Pratibha Stevenson IG % 0.4 % Normal 0.0-0.5 [facility] Comment on above: Performed By: #### C BC #### [facility] [address] [place] [address] Dr. Pratibha Stevenson LYMPH # 3.0 103/ul Normal 1.2-3.8 [facility] Comment on above: Performed By: #### C BC #### [facility] [address] [place] [address] Dr. Pratibha Stevenson Lymphocytes/100 WBC (Bld) 34.7 % Normal 20.5-60.0 [facility] Comment on above: Performed By: #### C BC #### [facility] [address] [place] [address] Dr. Pratibha Stevenson MANUAL DIFF REQ NO Normal [facility] Comment on above: Performed By: #### C BC #### [facility] [address] [place] [address] Dr. Pratibha Stevenson MCH (RBC) [Entitic mass] 31.3 pg Normal 25.9-34.0 [facility] Comment on above: Performed By: #### C BC #### [facility] [address] [place] [address] Dr. Pratibha Stevenson MCHC (RBC) [Mass/Vol] 34.1 g/dL Normal 29.9-35.2 [facility] Comment on above: Performed By: #### C BC #### [facility] [address] [place] [address] Dr. Pratibha Stevenson MCV (RBC) [Entitic vol] 92.0 fL Normal 80.0-94.0 [facility] Comment on above: Performed By: #### C BC #### [facility] [address] [place] [address] Dr. Pratibha Stevenson MONO # 0.5 103/ul Normal 0.3-0.8 [facility] Comment on above: Performed By: #### C BC #### [facility] [address] [place] [address] Dr. Pratibha Stevenson Monocytes/100 WBC (Bld) 5.9 % Normal 1.7-12.0 [facility] Comment on above: Performed By: #### C BC #### [facility] [address] [place] [address] Dr. Pratibha Stevenson NEUT # 4.8 103/ul Normal 1.4-6.5 [facility] Comment on above: Performed By: #### C BC #### [facility] [address] [place] [address] Dr. Pratibha Stevenson Neutrophils/100 WBC (Bld) 55.9 % Normal 43.0-75.0 [facility] Comment on above: Performed By: #### C BC #### [facility] [address] [place] [address] Dr. Pratibha Stevenson Platelet mean volume (Bld) [Entitic vol] 10.0 fL Normal 9.5-13.5 [facility] Comment on above: Performed By: #### C BC #### [facility] [address] [place] [address] Dr. Pratibha Stevenson PLT 243 103/ul Normal 150-450 [facility] Comment on above: Performed By: #### C BC #### [facility] [address] [place] [address] Dr. Pratibha Stevenson RBC 4.98 106/ul Normal 4.70-6.10 [facility] Comment on above: Performed By: #### C BC #### [facility] [address] [place] [address] Dr. Pratibha Stevenson WBC 8.5 103/ul Normal 4.0-11.0 [facility] Comment on above: Performed By: #### C BC #### [facility] [address] [place] [address] ABD/PELVIS WO CONon [...] ROSALINO VIDALES Date: 2022-07-20 04:12 Normal [facility] ER URINE PROFILEon 3 Bilirubin Ql (U) Negative Normal NEGATIVE [facility] Comment on above: Performed By: #### L ACT #### [facility] [address] [place] [address] Dr. Pratibha Stevenson Clarity (U) CLEAR Normal CLEAR [facility] Comment on above: Performed By: #### L ACT #### [facility] [address] [place] [address] Dr. Pratibha Stevenson Color (U) LT. YELLOW Normal YELLOW [facility] Comment on above: Performed By: #### L ACT #### [facility] [address] [place] [address] Dr. Pratibha Stevenson ERUAHD A micrscopic examination will be performed if indicated. Normal [facility] Comment on above: Performed By: #### L ACT #### [facility] [address] [place] [address] Dr. Pratibha Stevenson Glucose Ql (U) Negative Normal NEGATIVE [facility] Comment on above: Performed By: #### L ACT #### [facility] [address] [place] [address] Dr. Pratibha Stevenson Hemoglobin Ql (U) Negative Normal NEGATIVE [facility] Comment on above: Performed By: #### L ACT #### [facility] [address] [place] [address] Dr. Pratibha Stevenson Ketones Ql (U) Negative Normal NEGATIVE [facility] [facility] Comment on above: Performed By: #### L ACT #### [facility] [address] [address] [address] Pratibha Stevenson LEUKOCYTES Negative Normal NEGATIVE [facility] Comment on above: Performed By: #### L ACT #### [facility] [address] [place] [address] Dr. Pratibha Stevenson Nitrite Ql (U) Negative Normal NEGATIVE [facility] Comment on above: Performed By: #### L ACT #### [facility] [address] [place] [address] Dr. Pratibha Stevenson pH (U) 6.0 [pH] Normal 5-9 [facility] Comment on above: Performed By: #### L ACT #### [facility] [address] [place] [address] Dr. Pratibha Stevenson SPEC GRAVITY <=1.005 Abnormal 1.005-<=1.025 [facility] Comment on above: Performed By: #### L ACT #### [facility] [address] [place] [address] Dr. Pratibha Stevenson UA PROTEIN Negative Normal NEGATIVE/ TRACE [facility] Comment on above: Performed By: #### L ACT #### [facility] [address] [place] [address] Dr. Pratibha Stevenson UR MICRO IND NOT INDICATED Normal [facility] Comment on above: Performed By: #### L ACT #### [facility] [address] [place] [address] Dr. Pratibha Stevenson Urobilinogen Qn (U) 0.2 {Butch'U}/dL Normal 0.2 - 1. 0 [facility] Comment on above: Performed By: #### L ACT #### [facility] [address] [place] [address] Dr. Pratibha Stevenson LACTATE/LACTIC ACIDon 2022 Lactate [Moles/Vol] 0.8 mmol/L Normal 0.4-2.0 [facility] Comment on above: Performed By: #### L ACT #### [facility] [address] [place] [address] Dr. Pratibha Stevenson PROF 14(COMP METB)on 023 Albumin [Mass/Vol] 4.3 g/dL Normal 3.4-5.0 [facility] Comment on above: Performed By: #### E RUR #### [facility] [address] [place] [address] Dr. Pratibha Stevenson Albumin/Globulin [Mass ratio] 1.3 {ratio} Normal [facility] Comment on above: Performed By: #### E RUR #### [facility] [address] [place] [address] Dr. Pratibha Stevenson ALP [Catalytic activity/Vol] 94 U/L Normal 46-116 [facility] Comment on above: Performed By: #### E RUR #### [facility] [address] [place] [address] Dr. Pratibha Stevenson ALT [Catalytic activity/Vol] 23 U/L Normal 16-63 [facility] Comment on above: Performed By: #### E RUR #### [facility] [address] [place] [address] Dr. Pratibha Stevenson Anion gap [Moles/Vol] 10.5 mmol/L Normal [facility] Comment on above: Performed By: #### E RUR #### [facility] [address] [place] [address] Dr. Prtaibha Stevenson AST [Catalytic activity/Vol] 21 U/L Normal 15-37 [facility] Comment on above: Performed By: #### E RUR #### [facility] [address] [place] [address] Dr. Pratibha Stevenson Bilirubin [Mass/Vol] 0.5 mg/dL Normal 0.2-1.0 [facility] Comment on above: Performed By: #### E RUR #### [facility] [address] [place] [address] Dr. Pratibha Stevenson Calcium [Mass/Vol] 9.3 mg/dL Normal 8.5-10.1 [facility] Comment on above: Performed By: #### E RUR #### [facility] [address] [place] [address] Dr. Pratibha Stevenson Chloride [Moles/Vol] 102 mmol/L Normal 98-107 [facility] Comment on above: Performed By: #### E RUR #### [facility] [address] [place] [address] Dr. Pratibha Stevenson CO2 [Moles/Vol] 26.2 mmol/L Normal 21.0-32.0 [facility] Comment on above: Performed By: #### E RUR #### [facility] [address] [place] [address] Dr. Pratibha Stevenson Creatinine [Mass/Vol] 1.18 mg/dL Normal 0.70-1.30 [facility] Comment on above: Performed By: #### E RUR #### [facility] [address] [place] [address] Dr. Pratibha Stevenson EGFR-AF PUERTO RICAN >60 Normal >=60 [facility] Comment on above: Performed By: #### E RUR #### [facility] [address] [place] [address] Dr. Pratibha Stevenson EGFR-NON AF PUERTO RICAN >60 Normal >=60 [facility] Comment on above: Performed By: #### E RUR #### [facility] [address] [place] [address] Dr. Pratibha Stevenson Globulin (S) [Mass/Vol] 3.2 g/dL Normal [facility] Comment on above: Performed By: #### E RUR #### [facility] [address] [place] [address] Dr. Pratibha Stevenson Glucose [Mass/Vol] 115 mg/dL Critically high 74-106 [facility] Comment on above: Performed By: #### E RUR #### [facility] [address] [place], [place] [id number] Dr. Pratibha Stevenson Potassium [Moles/Vol] 3.7 mmol/L Normal 3.5-5.1 [facility] Comment on above: Performed By: #### E RUR #### [facility] [address] [place] [address] Dr. Pratibha Stevenson Protein [Mass/Vol] 7.5 g/dL Normal 6.4-8.2 [facility] Comment on above: Performed By: #### E RUR #### [facility] [address] [address] [address] Pratibha Stevenson Sodium [Moles/Vol] 135 mmol/L Critically low 136-145 [facility] Comment on above: Performed By: #### E RUR #### [facility] [address] [place] [address] Dr. Pratibha Stevenson Urea nitrogen [Mass/Vol] 11.0 mg/dL Normal 7.0-18.0 [facility] Comment on above: Performed By: #### E RUR #### [facility] [address] [place] [address] Dr. Pratibha Stevenson Urea nitrogen/Creatinine [Mass ratio] 9.3 mg/mg Normal [facility] Comment on above: Performed By: #### E RUR #### [facility] [address] [place] [address] Dr. Pratibha Stevenson TROPONIN, HIGH SENSITIVITYon 07-20-2022 HSTROP 5.0 pg/mL Normal 4.0-76.1 [facility] Comment on above: Result Comment: CUT- OFF POINTS HAVE BEEN ESTABLISHED BASED ON THE FOURTH UNIVERSAL DEFINITIONS OF MYOCARDIAL INFARCTION. THE UPPER REFERENCE LIMIT (URL) OF TROPONIN, DEFINED THE 99TH PERCENTILE OF cTnI DISTRIBUTION IN A REFERENCE POPULATION, HAS BEEN CONFIRMED THE DECISION THRESHOLD FOR ME DIAGNOSIS. Performed By: #### E RUR #### [facility] [address] [place] [address] Dr. Pratibha Stevenson Formson 07-15-2022 Forms [id number]#1.0 0CD:[address] [facility] Screenson 07-15-2022 Screens [id number]#1.0 0CD:[address] [facility] Screens [id number]#1.0 0CD:[address] [facility] Patient Educationon 07-14-19 Patient Education Urology [...] Rhubarb. ? Beets. ? Potato chips and welsh fries. ? Nuts. ? If you regularly take a diuretic medicine, make sure to eat at least 1?2 fruits or vegetables high in potassium each day. These include: ? Avocado. ? Banana. ? [place], prune, carrot, or tomato juice. ? Baked [...] 31 y.o. male new patient here for [facility] follow up. Urology consult done 05/08/22 @ [facility] due to 4-5mm Ureteral Stone. S/P [...] yo male new patient following up to [facility] ER. IPSS 13. MARGOTH 14. 1. Ureteral stone (N20.1: Calculus of ureter) Urology consult 05/08/22 at [facility] due to 4-5 mm Ureteral Stone [...] 12/26/1997 Recor (more content not included)... Normal [facility] Comment on above: Result Comment: Elec tronically Signed By: Shirley Murrell MD\.br\Date and Time Signed: 07/13/22 16:53 EDT\.br\Electronically Co-Signed By: Shalini Macias\.br\Date and Time Co-Signed: 07/13/22 10:29 EDT RAD - MISCon 07-11-2022 RAD - MISC [id number]#1.0 0CD:[address] [facility] RAD - Ultrasound Reporton RAD - Ultrasound Report [id number]#1.0 0CD:[address] [facility] US KIDNEYSon 07-06-2022 US KIDNEYS EXAMINATION: [...] by: RAMO BLAKE Date: 2022-07-06 11:14 Normal [facility] XR KUB 1 VIEWon 07-06-2022 XR [...] by: SAUMYA MARSH Date: 2022-07-06 11:57 Normal [facility] Coding Summary.on 05-30-2022 Coding Summary. CD:[id number] Gh 0bWw+PGhlYWQ+VN8PGRMeB 44pqDBtoC4CU4fTYY3LVMC OEESHFA6FSI5sjMK4FJrgX 2VybiAv GsrmhWWjLN69KGr7JPT7xE dkEPhnhA3waTYvU8z2IsWc LQ59bV17OEuwXUXyZhD5Og ZpbjsgbWFy B5cyZcKosJHcNsj+PHRhYm xlIHdpZHRoPScxMDAlJyBz mCjdHK3gFh4nTKQjLORgbQ xhcHNlOiBj k2ilMJRdTCxuOT6kkSpzN4 MbmUN5VKUqf4f9Tk21hKK+ FNEyRVK9wEyaKBgbx962Vb Pot2edWDK5 tUNfKFhyQJW1X60fd9F2KK IkOLTsTFD6yKP7uV9zwApb koabP9EbkUDdZcI6RBH3uJ VidH1juPrr acxvdZ8jUbv+G81RKH9VQI LAZP0MTxe6K9WsQergqFK+ QV15GIKdEX73aVCiaZSfk9 wupFv3IySw NRQcTWL3nPkpIKojl5FjSO IcX93jvWTqm9P7VJJxxJci oFPzBvPikGI7xN4dPDoagp lzs2vkuabe Jpvgj2ivjv58oJ38U55wFX asLKYeRVV9ZLBoGXYhrDlw um9otC2qVy5+HSjnc5nfa4 umdPu1OgJw XPPnobAacBsdTCR1f6LaLt 32K7KjrCqjy0KaEct3co10 eRMpt3G9fQG6RVhbBZPopN 4wSWsqYyZ9 FGJfCzAxiW34aPOsKNduQv 5jrTxbkJluNQ6lGFPhvojr IYRnfW4sXFHdnUAiaJkpEH 4wNTBpbjtm l191UmFvHKA1UVAhpCDrT8 ZerN4dVzFuZRKmKLDhM2Iw qWShXXiqK659QRjsVlP0HK KsijJoU8Fi XXWugRlkKuK7r8X0Ml7Ac1 UuddehJOA7MSlwFWCvPgQg NlIxGjO4G1YfFeh5SLWstX wlKP6sZ9Hb IHDmybcznjowhRN7KCDzIX SboV25yILiFPlwIe1xg5Y7 w153YLJxNKEyqN24Pf8rdK ogMTBwdCBU dX0ykiqgj4jvfdjnWmMyZW OxRRz1ZVr9LORvuQdlGbWc MUE5WyZ5JGD0eAQhkP2lqK fovrhvjS4d Oyc+P39mlX9hNKE2MEB3db weESRlteUzUK81TS77B3Ie PjwvdGFibGU+PGRpdiBzdH lbMY4bBlIu l8fnn3MjAPowQ6OvRCZjPD rrJol4UNRcUNS5tLO3rT5t GLIvBYofm6T9gXO2M0Jglv Gotn1gy6sn BIPwHKymM93rpUJzp4N6YU PgwBA3AJZmoYilUzQtsL34 Oyc+SEAvdPhhh6XoOaflk0 iuy4ekqNb9 HyPeJOBosqQgdGxyCEE8c8 BcWf83B80zYPhmQDAjTTOb RRZrWVPeeNlimy5gtF8jVl 8+PGNvbCB3 hXM2zW6fCTUzMjE8KKbsL8 43AbPclENsXwgbs7rsd2ik uWb1UfIcIZHowkPjlBwwNK H8c7GbKc94 Z16oCMstOCZkJLAfFQHqAF MhzFynxh6jhC5uXr9+PC9j g0qqfj63aL64iZF+PHRkIH O4bFqfPZch HRXmuT0aANeoUrY6RAIhFy XucG71zCItTBllKi4jiJnz wJaxMZ8tFSLzojsbu992Zv Sjh1gcZLHe gTTtJQveGZE6Y73uh1J9FO MwIXQlPBH5oBU5pT7gaAij bjogbGVmdDsgdmVydGljYW smSFpsH167 IHRvcDsnPlBhdGllbnQgTm WrQZs5B3PhQxo2OEIxlWlv MD6xcAOoALyzLy7mtRqraO tmSX9dMVSh qtadz666BdOam0etFTUqtB RcYEevWBT4F81dx8P0BGBy IZFhMXE2dSL6pC9quCscal ogbGVmdDsg wyAurKohVFflJWbfL927JP RvcDsnPkJpcnRoIERhdGU6 SR82JF36hFZwj1L2tPA0Q2 BhZGRpbmct upxtpSJ1TWLbRBQtgQ32Ek 1obIilAd5jWAKlVLK0CBLe gZCiN4HebP8fTgIaELHzBN XhV6JzfIWz LYssA339JNeqEuX0SAIobd KvC9BaTTQpyUvtDlQ4q9E3 Pc6XB0H9BJ06GQ52qGJqs2 M3gFE4I7Yc UMFnemnkceegjGF5XYCeXT YvqN07Ut6swBujJg7pRFWh ZSQ9MOLpeIHvW6RhmQ4oIq AjMDAwMDAw G9UhjUBfDBmnB447WPowWj O1GTPkllTjC7FzSTDiyIqw VnU0t1U7Rp0JSHi9MS65MN 35dOOwh3Z9 aYZ6G0FbMSEmgtmofjrgiT G2EOZxYIFchQ92Ul1whOxr Xh0pWMJsKBV5CHUzsHAcA8 IquD6cXpKz ACTsUYKdH8NztIDdIAcqB0 06AQhoFnB6YAUsorBlJ8Pk WONwzFwjWpI1i3I5Mm1SQF SqOU29LXE4 cNW0KQ19WJ88Z9MkTylemI FibGU+PHRhYmxlIHdpZHRo EQigAHIbAaNwuMpiBT2vFh 9yZGVyLWNv nHrvrQDvKiRvo1gbVLWzAC tzXP5jaBmoL5MxxOI9SYIn r0u7Sl17S70mJ3WqyAY+PG MiaLL2tFA9 fE2aJyYpTkE2XMyyI677Na XiuGNdQtkgd3dud8scpSe6 KyH3GESpraZgnMutCEH1x8 YxUi56T62f IHdpZHRoPSIxNSUiIHZhbG mewy5lbN8gVb7+PGNvbCB3 sRH8pA7uAyFrSkV9QPtbQ0 49InRvcCIv Oidbw4eak3nfsAl4ZbVkQZ TnsePoqDmqWWE5b1YyAd11 D2RhtVodz1ReBnb7ba06eU Oew5R8aKT8 H0NyRSVmphoqyDHwtKpdMP 7eGXCsxzzrWCOkxD7cXCHy D9j1BlIlKdP2EXlsT1Gjpz H6NKFbrYNw ALpdWVT6B16un4V8JPAnDT GjIHD1cUO5gE5ukZlheqdz bGVmdDsgdmVydGljYWwtYW ixG225QWVr cTiaQSJquQ0gKHAlsTLiwW aiUY3wSSViksyrYgMUTBVG YeewQSZTS96zGCyzsLB+PH PyOVZ5qQic EFohJNFcyJ5zGPFbK8h3Wu LzXiM8QVofT1LzYHFyjwir Mq68zA7xNbShHfR4NTfaG5 YvecO3BDTv sOZrWTlyHFH8X97ol1F2BD BiRORpOEO1rQT4jS0nzSnu bjogbGVmdDsgdmVydGljYW hcUCibG840 UTTjgLgbWfK8DaC3UxB4IQ M5S0ZfHtv2GCFtxHrbJE5r kVHvRVgtGu8yxTpyfJwtHQ 4wNTBpbjtw UHDpuM7uNRDicEYhfSxdFP 9wRSQebzcss357KnRjDYH4 PWGfrBHsS4UdcC0fEgPiPC KaKMDgL6Xr tANwCOpgU811RKknVzQ5ZN JbnqZbD8WjSVSdxGttGgV3 k2A6Os9kAMNEZDSckwzybQ Q+PHRkIHN0 hRotDWaoWHVyjJ9zOEEzM7 t3HmJoKbC1NIirX3DqBZGo cncoAa11bE2qRkQgCjL8VL njH9SsluC7 GKPylPJwJAmqBXL0J82iv7 R7TBRnMOYyPXR4mXT4lE4u bGlnbjogbGVmdDsgdmVydG ljYWwtYWxp V712DRObdTzpXr6eiXU5O6 YhVeb4NJHnyFziTR7lrUVg IVwgDu3hzFmweQzcAU4wAP BpbjtwYWRk jI9mCFVytOKolSikMA5eNW Riviixb414XbSzNLP0FYMj xQWsL9DpzO7xDvMoQWEeUJ OoA5GrzTKa NBfeW990XDnqYqF1EGGnth AwZ2BpOKQviXnjIhR3b2S2 Yf3WyIMcTJEoDS67FK81OX 82B1CqQwfj dGFibGU+PHRhYmxlIHdpZH WxADbkCWXzReTyjQfwPB0m Ay8gZUCxYTWmyZjyfXZfBz And7kvFIJt TEeeVU6aaTqtL7EjgWF6VX Goc3g0Yn47Q71cT4AcoGZ+ TQGttUK1vBQ6pF2bGyXmWa P0ORguV462 XvYzjPSnVqcug3pqg8qecV a4EkRnBGNduzKbyYnjZXG5 q4CkJs09J56iEXkrUEVnBR IyMCUiIHZh oBszku5tuB4mZm1+PGNvbC V0fCA9aP2pBpYjWvD9DTdr D939ZmKkbPVuHallB91fN4 JvdXA+PHRy Mvr3WQYtjDmtKU4upDOfUF wfAk8zMIL2ZuOpOjRqUZbk U0NcCTXbpunmdbjraSV6IP XsDOIwxQ69 Zu7yuXfzNi3nGIOfUGV4OX WuoGIbO6EnwP7xQvVdKZFj CZMcF9XldULoFAvkE950FQ pjVyP8WXKn tuFhW8ZqHFOluPrtTvX1n0 H9Sx2QwGyvhOFoMS7eUnMx IWy2N9MvPhp1IYXsfAazAW 0ncGFkZGlu Cs1zmMundEeoKV6fFECevg zof035IwYjs6faKTHpvHKd MFwwSEW5W55yn0I7KOMwGF LwAOW6uXM6 hZ7aoTgmarfjpKPviYbjjz LhxCsjIWwsRLurN258PSLx jWzsFmWHXxa7P8EzGja1UT QmuFtuQV7h tNRfPChaOg4ymSrcaOyeZW 6wUBRglnbac033UmVib3ea GWEwjDDgAXjrFQK9A62pq7 P3LBLhXDEf VPF7jHU4qK1ytBgwcwrjfQ VmdDsgdmVydGljYWwtYWxp Z407AXEjuKtcXd4RDdm1G8 HyRng3XOUp kVqzAQ1zdAOtBIznGf1qkW aplDpeKM4uNWSzvdmmv209 RzKai3bvBABrkXGiCHhkYD R8E10gr6B2 RSWnTJHxDYW0eEO7vA4xxV lnbjogbGVmdDsgdmVydGlj PRhxVArbZ077BJWgpBldRw BheWVyOjwv dGQ+GF92zq17X6SzXaokUp p6TNXyALY7cWE9zR1hGCGh XTjqn5V1kXL4J0EulpJgat 5vl7isAKSt ZTog (more content not included)... Normal [facility] Operative Reporton Operative Report Patient: AUDREY DONALD Age: 31 years Sex: Male : 1990 Associated Diagnoses: None Author: Shirley Murrell MD Procedure Operative Information Details: Date/ Time: 05/23/2022 10:00:00. Pre-Op Dx: Kidney stone (JBJ18-YS N20.0, Billing Diagnosis, Medical), Foreign Body in [...] serum labs and 24-hour urine . Normal [facility] Comment on above: Result Comment: Elec tronically Signed By: Rafaela Murrell MDhy M.\.br\Date and Time Signed: 05/27/22 17:07 EST Consent for Procedure/Surger yon 05-26-2022 Consent for Procedure/Surgery [id number]#1.0 0CD:127 [facility] IntraOperative Documentson 0 05-26-2022 IntraOperative Documents [id number]#1.0 0CD:127 [facility] Formson 05-24-2022 Forms [id number]#1.0 0CD:127 [facility] Consent for Treatmenton 05-02 Consent for Treatment [id number]#1.0 0CD:127 [facility] Main OR Intraoperative Recor don 05-23-2022 Main OR Intraoperative Record IntraOp Document Type FTURO Summary Primary Physician: Shirley Murrell MD Finalized Date/Time: 05/23/22 10:14:49 Pt. Name: SHABANA ETHANJALEN YoonO.B./Sex: 1990 Male Med Rec #: [id number] Physician: Shirley Murrell MD Financial #: [id number] Pt. 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 Main OR Preoperative Recordo n 05-23-2022 Main OR Preoperative Record Holding Area Document Type FTURO Summary Primary Physician: Shirley Murrell MD Finalized Date/Time: 05/23/22 10:11:23 Pt. Name: ETHAN DONALD/Sex: 1990 Male Med Rec #: [id number] Physician: Shirley Murrell MD Financial #: [id number] Pt. Type: O Room/Bed: / Admit/Disch: 05/23/22 [...] Comment: difficulty voiding, not Skin Integrity Intact, [place], Warm, & feeling empty, pain in Dry [...] Correspondence Off iceon 05-17-2022 Insurance Correspondence Office [id number]#1. 00CD:127 [facility] ED Note-Physicianon 05-14-19 ED Note-Physician [id number]#1.0 0CD:127 [facility] RAD - CT Reporton 05-14-[address]22 RAD - CT Report [id number]#1. 00CD:127 [facility] RAD - CT Report [id number]#1. 00CD:127 [facility] RAD - MISCon 05-14-2022 RAD - MISC [id number]#1. 00CD:127 [facility] RAD - MISC [id number]#1. 00CD:[address] [facility] RAD - MISC [id number]#1. 00CD:[address] [facility] RAD - Ultrasound Reporton RAD - Ultrasound Report [id number]#1. 00CD:[address] [facility] AMYLASEon 05-12-2022 Amylase [Catalytic activity/Vol] 39 U/L Normal 25-115 [facility] Comment on above: Performed By: #### E RUR #### [facility] [address] [place] [address] Dr. Pratibha Stevenson CBC AUTO DIFFon 05-12-2022 BASO # 0.0 103/ul Normal 0.0-0.1 [facility] Comment on above: Performed By: #### L ACT #### [facility] [address] [place] [address] Dr. Pratibha Stevenson Basophils/100 WBC (Bld) 0.2 % Normal 0.2-2.0 [facility] Comment on above: Performed By: #### L ACT #### [facility] [address] [place] [address] Dr. Pratibha Stevenson EO # 0.0 103/ul Normal 0.0-0.7 [facility] Comment on above: Performed By: #### L ACT #### [facility] [address] [place] [address] Dr. Pratibha Stevenson Eosinophils/100 WBC (Bld) 0.0 % Critically low 0.9-7.0 [facility] Comment on above: Performed By: #### L ACT #### [facility] [address] [place] [address] Dr. Pratibha Stevenson Erythrocyte distribution width (RBC) [Ratio] 11.7 % Normal 11.0-15.0 [facility] Comment on above: Performed By: #### L ACT #### [facility] [address] [place] [address] Dr. Pratibha Stevenson Hematocrit (Bld) [Volume fraction] 43.0 % Normal 42.0-54.0 [facility] Comment on above: Performed By: #### L ACT #### [facility] [address] [place] [address] Dr. Pratibha Stevenson Hemoglobin (Bld) [Mass/Vol] 13.9 g/dL Critically low 14.0-18.0 [facility] Comment on above: Performed By: #### L ACT #### [facility] [address] [address] [address] Pratibha Stevenson IG # 0.03 10e3/ul Normal 0.00-0.03 [facility] Comment on above: Performed By: #### L ACT #### [facility] [address] [place] [address] Dr. Pratibha Stevenson IG % 0.3 % Normal 0.0-0.5 [facility] Comment on above: Performed By: #### L ACT #### [facility] [address] [address] [address] Pratibha Stevenson LYMPH # 0.8 103/ul Critically low 1.2-3.8 [facility] Comment on above: Performed By: #### L ACT #### [facility] [address] [place] [address] Dr. Pratibha Stevenson Lymphocytes/100 WBC (Bld) 8.6 % Critically low 20.5-60.0 [facility] Comment on above: Performed By: #### L ACT #### [facility] [address] [place] [address] Dr. Pratibha Stevenson MANUAL DIFF REQ NO Normal [facility] Comment on above: Performed By: #### L ACT #### [facility] [address] [address] [address] Pratibha Stevenson MCH (RBC) [Entitic mass] 31.0 pg Normal 25.9-34.0 [facility] Comment on above: Performed By: #### L ACT #### [facility] [address] [place] [address] Dr. Pratibha Stevenson MCHC (RBC) [Mass/Vol] 32.3 g/dL Normal 29.9-35.2 [facility] Comment on above: Performed By: #### L ACT #### [facility] [address] [address] [address] Pratibha Stevenson MCV (RBC) [Entitic vol] 96.0 fL Critically high 80.0-94.0 [facility] Comment on above: Performed By: #### L ACT #### [facility] [address] [place] [address] Dr. Pratibha Stevenson MONO # 0.4 103/ul Normal 0.3-0.8 [facility] Comment on above: Performed By: #### L ACT #### [facility] [address] [place] [address] Dr. Pratibha Stevenson Monocytes/100 WBC (Bld) 4.5 % Normal 1.7-12.0 [facility] Comment on above: Performed By: #### L ACT #### [facility] [address] [place] [address] Dr. Pratibha Stevenson NEUT # 8.4 103/ul Critically high 1.4-6.5 [facility] Comment on above: Performed By: #### L ACT #### [facility] [address] [place] [address] Dr. Pratibha Stevenson Neutrophils/100 WBC (Bld) 86.4 % Critically high 43.0-75.0 [facility] Comment on above: Performed By: #### L ACT #### [facility] [address] [place] [address] Dr. Pratibha Stevenson Platelet mean volume (Bld) [Entitic vol] 10.6 fL Normal 9.5-13.5 [facility] Comment on above: Performed By: #### L ACT #### [facility] [address] [place] [address] Dr. Pratibha Stevenson PLT 227 103/ul Normal 150-450 [facility] Comment on above: Performed By: #### L ACT #### [facility] [address] [place] [address] Dr. Pratibha Stevenson RBC 4.48 106/ul Critically low 4.70-6.10 [facility] Comment on above: Performed By: #### L ACT #### [facility] [address] [address] [address] Pratibha Stevenson WBC 9.7 103/ul Normal 4.0-11.0 [facility] Comment on above: Performed By: #### L ACT #### [facility] [address] [address] [address] Pratibha Stevenson Consent for Procedure/Surger yon 05-12-2022 Consent for Procedure/Surgery [id number] 0CD:[address] [facility] LIPASEon 05-12-2022 Lipase [Catalytic activity/Vol] 110.0 U/L Normal 73.0-393.0 [facility] Comment on above: Performed By: #### E RUR #### [facility] [address] [place] [address] Dr. Pratibha Stevenson Operative Reporton 3 Operative Report [id number] 0CD:[address] [facility] Operative Report [id number] 0CD:[address] [facility] Comment on above: Other Comment: SAMMI PATHAK PAGES PROF 14(COMP METB)on 023 Albumin [Mass/Vol] 3.3 g/dL Critically low 3.4-5.0 [facility] Comment on above: Performed By: #### E RUR #### [facility] [address] [place] [address] Dr. Pratibha Stevenson Albumin/Globulin [Mass ratio] 1.2 {ratio} Normal [facility] Comment on above: Performed By: #### E RUR #### [facility] [address] [place] [address] Dr. Pratibha Stevenson ALP [Catalytic activity/Vol] 68 U/L Normal 46-116 [facility] Comment on above: Performed By: #### E RUR #### [facility] [address] [address] [address] Pratibha Stevenson ALT [Catalytic activity/Vol] 27 U/L Normal 16-63 [facility] Comment on above: Performed By: #### E RUR #### [facility] [address] [place] [address] Dr. Pratibha Stevenson Anion gap [Moles/Vol] 10.4 mmol/L Normal [facility] Comment on above: Performed By: #### E RUR #### [facility] [address] [place] [address] Dr. Pratibha Stevenson AST [Catalytic activity/Vol] 25 U/L Normal 15-37 [facility] Comment on above: Performed By: #### E RUR #### [facility] [address] [place] [address] Dr. Pratibha Stevenson Bilirubin [Mass/Vol] 0.5 mg/dL Normal 0.2-1.0 [facility] Comment on above: Performed By: #### E RUR #### [facility] [address] [place] [address] Dr. Pratibha Stevenson Calcium [Mass/Vol] 8.8 mg/dL Normal 8.5-10.1 [facility] Comment on above: Performed By: #### E RUR #### [facility] [address] [place] [address] Dr. Pratibha Stevenson Chloride [Moles/Vol] 105 mmol/L Normal 98-107 [facility] Comment on above: Performed By: #### E RUR #### [facility] [address] [place] [address] Dr. Pratibha Stevenson CO2 [Moles/Vol] 26.5 mmol/L Normal 21.0-32.0 [facility] Comment on above: Performed By: #### E RUR #### [facility] [address] [place] [address] Dr. Pratibha Stevenson Creatinine [Mass/Vol] 1.15 mg/dL Normal 0.70-1.30 [facility] Comment on above: Performed By: #### E RUR #### [facility] [address] [place] [address] Dr. Pratibha Stevenson EGFR-AF PUERTO RICAN >60 Normal >=60 [facility] Comment on above: Performed By: #### E RUR #### [facility] [address] [place] [address] Dr. Pratibha Stevenson EGFR-NON AF PUERTO RICAN >60 Normal >=60 [facility] Comment on above: Performed By: #### E RUR #### [facility] [address] [place] [address] Dr. Pratibha Stevenson Globulin (S) [Mass/Vol] 2.7 g/dL Normal [facility] Comment on above: Performed By: #### E RUR #### [facility] [address] [place] [address] Dr. Pratibha Stevenson Glucose [Mass/Vol] 119 mg/dL Critically high 74-106 [facility] Comment on above: Performed By: #### E RUR #### [facility] [address] [place] [address] Dr. Pratibha Stevenson Potassium [Moles/Vol] 3.9 mmol/L Normal 3.5-5.1 [facility] Comment on above: Performed By: #### E RUR #### [facility] [address] [place] [address] Dr. Pratibha Stevenson Protein [Mass/Vol] 6.0 g/dL Critically low 6.4-8.2 [facility] Comment on above: Performed By: #### E RUR #### [facility] [address] [place] [address] Dr. Pratibha Stevenson Sodium [Moles/Vol] 138 mmol/L Normal 136-145 [facility] Comment on above: Performed By: #### E RUR #### [facility] [address] [place] [address] Dr. Pratibha Stevenson Urea nitrogen [Mass/Vol] 7.0 mg/dL Normal 7.0-18.0 [facility] Comment on above: Performed By: #### E RUR #### [facility] [address] [place] [address] Dr. Pratibha Stevenson Urea nitrogen/Creatinine [Mass ratio] 6.1 mg/mg Normal [facility] Comment on above: Performed By: #### E RUR #### [facility] [address] [place] [address] Dr. Pratibha Stevenson XR KUB 1 VIEWon [...] ROSALINO VIDALES Date: 2022-05-12 06:43 Normal [facility] AMYLASEon 05-11-2022 Amylase [Catalytic activity/Vol] 52 U/L Normal 25-115 [facility] Comment on above: Performed By: #### C MP, GREG, LIPA #### [facility] [address] [place] [address] Dr. Pratibha Stevenson CBC AUTO DIFFon 05-11-2022 BASO # 0.0 103/ul Normal 0.0-0.1 [facility] Comment on above: Performed By: #### C BC #### [facility] [address] [place] [address] Dr. Pratibha Stevenson Basophils/100 WBC (Bld) 0.6 % Normal 0.2-2.0 [facility] Comment on above: Performed By: #### C BC #### [facility] [address] [place] [address] Dr. Pratibha Stevenson EO # 0.2 103/ul Normal 0.0-0.7 [facility] Comment on above: Performed By: #### C BC #### [facility] [address] [place] [address] Dr. Pratibha Stevenson Eosinophils/100 WBC (Bld) 2.3 % Normal 0.9-7.0 [facility] Comment on above: Performed By: #### C BC #### [facility] [address] [place] [address] Dr. Pratibha Stevenson Erythrocyte distribution width (RBC) [Ratio] 11.7 % Normal 11.0-15.0 [facility] Comment on above: Performed By: #### C BC #### [facility] [address] [place] [address] Dr. Pratibha Stevenson Hematocrit (Bld) [Volume fraction] 42.4 % Normal 42.0-54.0 [facility] Comment on above: Performed By: #### C BC #### [facility] [address] [place] [address] Dr. Pratibha Stevenson Hemoglobin (Bld) [Mass/Vol] 14.3 g/dL Normal 14.0-18.0 [facility] Comment on above: Performed By: #### C BC #### [facility] [address] [place] [address] Dr. Pratibha Stevenson IG # 0.01 10e3/ul Normal 0.00-0.03 [facility] Comment on above: Performed By: #### C BC #### [facility] [address] [place] [address] Dr. Pratibha Stevenson IG % 0.2 % Normal 0.0-0.5 [facility] Comment on above: Performed By: #### C BC #### [facility] [address] [place] [address] Dr. Pratibha Stevenson LYMPH # 2.8 103/ul Normal 1.2-3.8 [facility] Comment on above: Performed By: #### C BC #### [facility] [address] [place] [address] Dr. Pratibha Stevenson Lymphocytes/100 WBC (Bld) 41.8 % Normal 20.5-60.0 [facility] Comment on above: Performed By: #### C BC #### [facility] [address] [place] [address] Dr. Pratibha Stevenson MANUAL DIFF REQ NO Normal [facility] Comment on above: Performed By: #### C BC #### [facility] [address] [place] [address] Dr. Pratibha Stevenson MCH (RBC) [Entitic mass] 31.0 pg Normal 25.9-34.0 [facility] Comment on above: Performed By: #### C BC #### [facility] [address] [place] [address] Dr. Pratibha Stevenson MCHC (RBC) [Mass/Vol] 33.7 g/dL Normal 29.9-35.2 [facility] Comment on above: Performed By: #### C BC #### [facility] [address] [place] [address] Dr. Pratibha Stevenson MCV (RBC) [Entitic vol] 92.0 fL Normal 80.0-94.0 [facility] Comment on above: Performed By: #### C BC #### [facility] [address] [place] [address] Dr. Pratibha Stevenson MONO # 0.5 103/ul Normal 0.3-0.8 [facility] Comment on above: Performed By: #### C BC #### [facility] [address] [place] [address] Dr. Pratibha Stevenson Monocytes/100 WBC (Bld) 7.9 % Normal 1.7-12.0 [facility] Comment on above: Performed By: #### C BC #### [facility] [address] [place] [address] Dr. Pratibha Stevenson NEUT # 3.1 103/ul Normal 1.4-6.5 [facility] Comment on above: Performed By: #### C BC #### [facility] [address] [place] [address] Dr. Pratibha Stevenson Neutrophils/100 WBC (Bld) 47.2 % Normal 43.0-75.0 [facility] Comment on above: Performed By: #### C BC #### [facility] [address] [place] [address] Dr. Pratibha Stevenson Platelet mean volume (Bld) [Entitic vol] 10.7 fL Normal 9.5-13.5 [facility] Comment on above: Performed By: #### C BC #### [facility] [address] [place], [place] [address] Dr. Pratibha Stevenson PLT 216 103/ul Normal 150-450 [facility] Comment on above: Performed By: #### C BC #### [facility] [address] [place], [place] [address] Dr. Pratibha Stevenson RBC 4.61 106/ul Critically low 4.70-6.10 [facility] Comment on above: Performed By: #### C BC #### [facility] [address] [place], [place] [address] Dr. Pratibha Stevenson WBC 6.6 103/ul Normal 4.0-11.0 [facility] Comment on above: Performed By: #### C BC #### [facility] [address] [place], [place] [address] ABD/PELVIS WO CONon [...] SAUMYA MARSH Date: 2022-05-11 08:31 Normal [facility] LIPASEon 05-11-2022 Lipase [Catalytic activity/Vol] 241.0 U/L Normal 73.0-393.0 [facility] Comment on above: Performed By: #### C GREG NGUYEN LIPA #### [facility] [address] [place] [address] Dr. Pratibha Stevenson PROF 14(COMP METB)on 023 Albumin [Mass/Vol] 3.6 g/dL Normal 3.4-5.0 [facility] Comment on above: Performed By: #### C WENDY GREG LIPA #### [facility] [address] [place] [address] Dr. Pratibha Stevenson Albumin/Globulin [Mass ratio] 1.2 {ratio} Normal [facility] Comment on above: Performed By: #### C WENDY GREG, LIPA #### [facility] [address] [place] [address] Dr. Pratibha Stevenson ALP [Catalytic activity/Vol] 75 U/L Normal 46-116 [facility] Comment on above: Performed By: #### C WENDY GREG, LIPA #### [facility] [address] [place] [address] Dr. Pratibha Stevenson ALT [Catalytic activity/Vol] 28 U/L Normal 16-63 [facility] Comment on above: Performed By: #### C WENDY GREG, LIPA #### [facility] [address] [place] [address] Dr. Pratibha Stevenson Anion gap [Moles/Vol] 9.7 mmol/L Normal [facility] Comment on above: Performed By: #### C WENDY GREG, LIPA #### [facility] [address] [place] [address] [address] Pratibha Stevenson AST [Catalytic activity/Vol] 19 U/L Normal 15-37 [facility] Comment on above: Performed By: #### C MP, GREG, LIPA #### [facility] [address] [place] [address] Dr. Pratibha Stevenson Bilirubin [Mass/Vol] 0.5 mg/dL Normal 0.2-1.0 [facility] Comment on above: Performed By: #### C MP, GREG, LIPA #### [facility] [address] [place] [address] Dr. Pratibha Stevenson Calcium [Mass/Vol] 9.1 mg/dL Normal 8.5-10.1 [facility] Comment on above: Performed By: #### C MP, GREG, LIPA #### [facility] [address] [place] [address] Dr. Pratibha Stevenson Chloride [Moles/Vol] 104 mmol/L Normal 98-107 [facility] Comment on above: Performed By: #### C MP, GREG, LIPA #### [facility] [address] [place] [address] Dr. Pratibha Stevenson CO2 [Moles/Vol] 29.3 mmol/L Normal 21.0-32.0 [facility] Comment on above: Performed By: #### C MP, GREG, LIPA #### [facility] [address] [place] [address] Dr. Pratibha Stevenson Creatinine [Mass/Vol] 1.21 mg/dL Normal 0.70-1.30 [facility] Comment on above: Performed By: #### C MP, GREG, LIPA #### [facility] [address] [place] [address] Dr. Pratibha Stevenson EGFR-AF PUERTO RICAN >60 Normal >=60 [facility] Comment on above: Performed By: #### C MP, GREG, LIPA #### [facility] [address] [place] [address] Dr. Pratibha Stevenson EGFR-NON AF PUERTO RICAN >60 Normal >=60 [facility] Comment on above: Performed By: #### C MP, GREG, LIPA #### [facility] [address] [place] [address] Dr. Pratibha Stevenson Globulin (S) [Mass/Vol] 3.1 g/dL Normal [facility] Comment on above: Performed By: #### C MP, GREG, LIPA #### [facility] [address] [place] [address] Dr. Pratibha Stevenson Glucose [Mass/Vol] 88 mg/dL Normal 74-106 [facility] Comment on above: Performed By: #### C MP, GREG, LIPA #### [facility] [address] [place] [address] Dr. Pratibha Stevenson Potassium [Moles/Vol] 4.0 mmol/L Normal 3.5-5.1 [facility] Comment on above: Performed By: #### C MP, GREG, LIPA #### [facility] [address] [place] [address] Dr. Pratibha Stevenson Protein [Mass/Vol] 6.7 g/dL Normal 6.4-8.2 [facility] Comment on above: Performed By: #### C MP, GREG, LIPA #### [facility] [address] [place] [address] Dr. Pratibha Stevenson Sodium [Moles/Vol] 139 mmol/L Normal 136-145 [facility] Comment on above: Performed By: #### C MP, GREG, LIPA #### [facility] [address] [place] [address] Dr. Pratibha Stevenson Urea nitrogen [Mass/Vol] 8.0 mg/dL Normal 7.0-18.0 [facility] Comment on above: Performed By: #### C MP, GREG, LIPA #### [facility] [address] [place] [address] Dr. Pratibha Stevenson Urea nitrogen/Creatinine [Mass ratio] 6.6 mg/mg Normal [facility] Comment on above: Performed By: #### C MP, GREG, LIPA #### [facility] [address] [place] [address] Dr. Pratibha Stevenson XR KUB 1 VIEWon [...] MAUREEN GARDNER Date: 2022-05-11 06:36 Normal [facility] AMYLASEon 05-10-2022 Amylase [Catalytic activity/Vol] 41 U/L Normal 25-115 [facility] Comment on above: Performed By: #### L ACT #### [facility] [address] [place] [address] Dr. Pratibha Stevenson CBC AUTO DIFFon 05-10-2022 BASO # 0.0 103/ul Normal 0.0-0.1 [facility] Comment on above: Performed By: #### L ACT #### [facility] [address] [place] [address] Dr. Pratibha Stevenson Basophils/100 WBC (Bld) 0.7 % Normal 0.2-2.0 [facility] Comment on above: Performed By: #### L ACT #### [facility] [address] [place] [address] Dr. Pratibha Stevenson EO # 0.2 103/ul Normal 0.0-0.7 [facility] Comment on above: Performed By: #### L ACT #### [facility] [address] [place] [address] Dr. Pratibha Stevenson Eosinophils/100 WBC (Bld) 2.8 % Normal 0.9-7.0 [facility] Comment on above: Performed By: #### L ACT #### [facility] [address] [place] [address] Dr. Pratibha Stevenson Erythrocyte distribution width (RBC) [Ratio] 11.8 % Normal 11.0-15.0 [facility] Comment on above: Performed By: #### L ACT #### [facility] [address] [place] [address] Dr. Pratibha Stevenson Hematocrit (Bld) [Volume fraction] 38.8 % Critically low 42.0-54.0 [facility] Comment on above: Performed By: #### L ACT #### [facility] [address] [place] [address] Dr. Pratibha Stevenson Hemoglobin (Bld) [Mass/Vol] 13.3 g/dL Critically low 14.0-18.0 [facility] Comment on above: Performed By: #### L ACT #### [facility] [address] [place] [address] Dr. Pratibha Stevenson IG # 0.02 10e3/ul Normal 0.00-0.03 [facility] Comment on above: Performed By: #### L ACT #### [facility] [address] [place] [address] Dr. Pratibha Stevenson IG % 0.3 % Normal 0.0-0.5 [facility] Comment on above: Performed By: #### L ACT #### [facility] [address] [place] [address] Dr. Pratibha Stevenson LYMPH # 2.1 103/ul Normal 1.2-3.8 [facility] Comment on above: Performed By: #### L ACT #### [facility] [address] [place] [address] Dr. Pratibha Stevenson Lymphocytes/100 WBC (Bld) 35.3 % Normal 20.5-60.0 [facility] Comment on above: Performed By: #### L ACT #### [facility] [address] [place] [address] Dr. Pratibha Stevenson MANUAL DIFF REQ NO Normal [facility] Comment on above: Performed By: #### L ACT #### [facility] [address] [place] [address] [address] Pratibha Stevenson MCH (RBC) [Entitic mass] 30.7 pg Normal 25.9-34.0 [facility] Comment on above: Performed By: #### L ACT #### [facility] [address] [place] [address] [address] Pratibha Stevenson MCHC (RBC) [Mass/Vol] 34.3 g/dL Normal 29.9-35.2 [facility] Comment on above: Performed By: #### L ACT #### [facility] [address] [place] [address] Dr. Pratibha Stevenson MCV (RBC) [Entitic vol] 89.6 fL Normal 80.0-94.0 [facility] Comment on above: Performed By: #### L ACT #### [facility] [address] [place] [address] Dr. Pratibha Stevenson MONO # 0.4 103/ul Normal 0.3-0.8 [facility] Comment on above: Performed By: #### L ACT #### [facility] [address] [place] [address] Dr. Pratibha Stevenson Monocytes/100 WBC (Bld) 7.4 % Normal 1.7-12.0 [facility] Comment on above: Performed By: #### L ACT #### [facility] [address] [place] [address] Dr. Pratibha Stevenson NEUT # 3.1 103/ul Normal 1.4-6.5 [facility] Comment on above: Performed By: #### L ACT #### [facility] [address] [place] [address] Dr. Pratibha Stevenson Neutrophils/100 WBC (Bld) 53.5 % Normal 43.0-75.0 [facility] Comment on above: Performed By: #### L ACT #### [facility] [address] [place] [address] Dr. Pratibha Stevenson Platelet mean volume (Bld) [Entitic vol] 10.2 fL Normal 9.5-13.5 [facility] Comment on above: Performed By: #### L ACT #### [facility] [address] [place] [address] [address] Pratibha Stevenson PLT 197 103/ul Normal 150-450 [facility] Comment on above: Performed By: #### L ACT #### [facility] [address] [address] [address] Pratibha Stevenson RBC 4.33 106/ul Critically low 4.70-6.10 [facility] Comment on above: Performed By: #### L ACT #### [facility] [address] [address] [address] Pratibha Stevenson WBC 5.8 103/ul Normal 4.0-11.0 [facility] Comment on above: Performed By: #### L ACT #### [facility] [address] [place] [address] Dr. Pratibha Stevenson LIPASEon 05-10-2022 Lipase [Catalytic activity/Vol] 134.0 U/L Normal 73.0-393.0 [facility] Comment on above: Performed By: #### L ACT #### [facility] [address] [place] [address] Dr. Pratibha Stevenson PROF 14(COMP METB)on 023 Albumin [Mass/Vol] 3.1 g/dL Critically low 3.4-5.0 [facility] Comment on above: Performed By: #### L ACT #### [facility] [address] [place] [address] Dr. Pratibha Stevenson Albumin/Globulin [Mass ratio] 1.1 {ratio} Normal [facility] Comment on above: Performed By: #### L ACT #### [facility] [address] [place] [address] Dr. Pratibha Stevenson ALP [Catalytic activity/Vol] 68 U/L Normal 46-116 [facility] Comment on above: Performed By: #### L ACT #### [facility] [address] [place] [address] Dr. Pratibha Stevenson ALT [Catalytic activity/Vol] 25 U/L Normal 16-63 [facility] Comment on above: Performed By: #### L ACT #### [facility] [address] [address] [address] Pratibha Stevenson Anion gap [Moles/Vol] 11.1 mmol/L Normal [facility] Comment on above: Performed By: #### L ACT #### [facility] [address] [address] [address] Pratibha Stevenson AST [Catalytic activity/Vol] 16 U/L Normal 15-37 [facility] Comment on above: Performed By: #### L ACT #### [facility] [address] [address] [address] Pratibha Stevenson Bilirubin [Mass/Vol] 0.5 mg/dL Normal 0.2-1.0 [facility] Comment on above: Performed By: #### L ACT #### [facility] [address] [address] [address] Pratibha Stevenson Calcium [Mass/Vol] 8.6 mg/dL Normal 8.5-10.1 [facility] Comment on above: Performed By: #### L ACT #### [facility] [address] [address] [address] Pratibha Stevenson Chloride [Moles/Vol] 105 mmol/L Normal 98-107 [facility] Comment on above: Performed By: #### L ACT #### [facility] [address] [address] [address] Pratibha Stevenson CO2 [Moles/Vol] 26.6 mmol/L Normal 21.0-32.0 [facility] Comment on above: Performed By: #### L ACT #### [facility] [address] [address] [address] Pratibha Stevenson Creatinine [Mass/Vol] 1.12 mg/dL Normal 0.70-1.30 [facility] Comment on above: Performed By: #### L ACT #### [facility] [address] [address] [address] Pratibha Stevenson EGFR-AF PUERTO RICAN >60 Normal >=60 [facility] Comment on above: Performed By: #### L ACT #### [facility] [address] [address] [address] Pratibha Stevenson EGFR-NON AF PUERTO RICAN >60 Normal >=60 [facility] Comment on above: Performed By: #### L ACT #### [facility] [address] [address] [address] Pratibha Stevenson Globulin (S) [Mass/Vol] 2.7 g/dL Normal [facility] Comment on above: Performed By: #### L ACT #### [facility] [address] [address] [address] Pratibha Stevenson Glucose [Mass/Vol] 86 mg/dL Normal 74-106 [facility] Comment on above: Performed By: #### L ACT #### [facility] [address] [place] [address] Dr. Pratibha Stevenson Potassium [Moles/Vol] 3.7 mmol/L Normal 3.5-5.1 [facility] Comment on above: Performed By: #### L ACT #### [facility] [address] [place] [address] Dr. Pratibha Stevenson Protein [Mass/Vol] 5.8 g/dL Critically low 6.4-8.2 [facility] Comment on above: Performed By: #### L ACT #### [facility] [address] [place] [address] Dr. Pratibha Stevenson Sodium [Moles/Vol] 139 mmol/L Normal 136-145 [facility] Comment on above: Performed By: #### L ACT #### [facility] [address] [place] [address] Dr. Pratibha Stevenson Urea nitrogen [Mass/Vol] 12.0 mg/dL Normal 7.0-18.0 [facility] Comment on above: Performed By: #### L ACT #### [facility] [address] [place] [address] Dr. Pratibha Stevenson Urea nitrogen/Creatinine [Mass ratio] 10.7 mg/mg Normal [facility] Comment on above: Performed By: #### L ACT #### [facility] [address] [address] [address] Pratibha Stevenson US KIDNEYSon 05-10-2022 US [...] SAUMYA MARSH Date: 2022-05-10 08:37 Normal [facility] XR KUB 1 VIEWon 05-10-2022 XR [...] by: MAUREEN GARDNER Date: 2022-05-10 06:55 Normal [facility] AMYLASEon 05-09-2022 Amylase [Catalytic activity/Vol] 44 U/L Normal 25-115 [facility] Comment on above: Performed By: #### C BC #### [facility] [address] [place] [address] Dr. Pratibha Stevenson CBC AUTO DIFFon 05-09-2022 BASO # 0.1 103/ul Normal 0.0-0.1 [facility] Comment on above: Performed By: #### S SCRN, GRASTCX #### [facility] [address] [address] [address] Pratibha Stevenson Basophils/100 WBC (Bld) 0.9 % Normal 0.2-2.0 [facility] Comment on above: Performed By: #### S SCRN, GRASTCX #### [facility] [address] [address] Dr. Pratibha Stevenson EO # 0.2 103/ul Normal 0.0-0.7 [facility] Comment on above: Performed By: #### S SCRN, GRASTCX #### [facility] [address] [place] [address] Dr. Pratibha Stevenson Eosinophils/100 WBC (Bld) 2.6 % Normal 0.9-7.0 [facility] Comment on above: Performed By: #### S SCRN, GRASTCX #### [facility] [address] [place] [address] Dr. Pratibha Stevenson Erythrocyte distribution width (RBC) [Ratio] 11.9 % Normal 11.0-15.0 [facility] Comment on above: Performed By: #### S SCRN, GRASTCX #### [facility] [address] [address] [address] Pratibha Stevenson Hematocrit (Bld) [Volume fraction] 38.8 % Critically low 42.0-54.0 [facility] Comment on above: Performed By: #### S SCRN, GRASTCX #### [facility] [address] [address] [address] Pratibha Stevenson Hemoglobin (Bld) [Mass/Vol] 13.9 g/dL Critically low 14.0-18.0 [facility] Comment on above: Performed By: #### S SCRN, GRASTCX #### [facility] [address] [place] [address] Dr. Pratibha Stevenson IG # 0.02 10e3/ul Normal 0.00-0.03 [facility] Comment on above: Performed By: #### S JOSE ARMANDO GRASTCX #### [facility] [address] [place] [address] Dr. Pratibha Stevenson IG % 0.4 % Normal 0.0-0.5 [facility] Comment on above: Performed By: #### S JOSE ARMANDO GRASTCX #### [facility] [address] [place] [address] Dr. Pratibha Stevenson LYMPH # 2.0 103/ul Normal 1.2-3.8 [facility] Comment on above: Performed By: #### S JOSE ARMANDO GRASTCX #### [facility] [address] [place] [address] Dr. Pratibha Stevenson Lymphocytes/100 WBC (Bld) 34.9 % Normal 20.5-60.0 [facility] Comment on above: Performed By: #### S JOSE ARMANDO GRASTCX #### [facility] [address] [place] [address] Dr. Pratibha Stevenson MANUAL DIFF REQ NO Normal [facility] Comment on above: Performed By: #### S JOSE ARMANDO GRASTCX #### [facility] [address] [place] [address] Dr. Pratibha Stevenson MCH (RBC) [Entitic mass] 31.0 pg Normal 25.9-34.0 [facility] Comment on above: Performed By: #### S JOSE ARMANDO GRASTCX #### [facility] [address] [place] [address] Dr. Pratibha Stevenson MCHC (RBC) [Mass/Vol] 35.8 g/dL Critically high 29.9-35.2 [facility] Comment on above: Performed By: #### S JOSE ARMANDO GRASTCX #### [facility] [address] [place] [address] Dr. Pratibha Stevenson MCV (RBC) [Entitic vol] 86.6 fL Normal 80.0-94.0 [facility] Comment on above: Performed By: #### S JOSE ARMANDO GRASTCX #### [facility] [address] [address] [address] Pratibha Stevenson MONO # 0.4 103/ul Normal 0.3-0.8 [facility] Comment on above: Performed By: #### S SCRN, GRASTCX #### [facility] [address] [address] [address] Pratibha Stevenson Monocytes/100 WBC (Bld) 6.2 % Normal 1.7-12.0 [facility] Comment on above: Performed By: #### S SCRN, GRASTCX #### [facility] [address] [place] [address] Dr. Pratibha Stevenson NEUT # 3.1 103/ul Normal 1.4-6.5 [facility] Comment on above: Performed By: #### S SCRN, GRASTCX #### [facility] [address] [place] [address] Dr. Pratibha Stevenson Neutrophils/100 WBC (Bld) 55.0 % Normal 43.0-75.0 [facility] Comment on above: Performed By: #### S SCRN, GRASTCX #### [facility] [address] [place] [address] Dr. Pratibha Stevenson Platelet mean volume (Bld) [Entitic vol] 9.7 fL Normal 9.5-13.5 [facility] Comment on above: Performed By: #### S SCRN, GRASTCX #### [facility] [address] [place] [address] Dr. Pratibha Stevenson PLT 201 103/ul Normal 150-450 [facility] Comment on above: Performed By: #### S SCRN, GRASTCX #### [facility] [address] [place] [address] Dr. Pratibha Stevenson RBC 4.48 106/ul Critically low 4.70-6.10 [facility] Comment on above: Performed By: #### S SCRN, GRASTCX #### [facility] [address] [place] [address] Dr. Pratibha Stevenson WBC 5.7 103/ul Normal 4.0-11.0 [facility] Comment on above: Performed By: #### S SCRN, GRASTCX #### [facility] [address] [address] [address] Pratibha Stevenson CULTURE URINEon 05-09-2022 CULTURE URINE Culture Observations : NO GROWTH. Normal [facility] Comment on above: Performed By: #### C BC #### [facility] [address] [place] [address] Dr. Pratibha Stevenson LIPASEon 05-09-2022 Lipase [Catalytic activity/Vol] 98.0 U/L Normal 73.0-393.0 [facility] Comment on above: Performed By: #### C BC #### [facility] [address] [place] [address] Dr. Pratibha Stevenson PROF 14(COMP METB)on 023 Albumin [Mass/Vol] 3.2 g/dL Critically low 3.4-5.0 [facility] Comment on above: Performed By: #### C BC #### [facility] [address] [place] [address] Dr. Pratibha Stevenson Albumin/Globulin [Mass ratio] 1.3 {ratio} Normal [facility] Comment on above: Performed By: #### C BC #### [facility] [address] [place] [address] Dr. Pratibha Stevenson ALP [Catalytic activity/Vol] 74 U/L Normal 46-116 [facility] Comment on above: Performed By: #### C BC #### [facility] [address] [place] [address] Dr. Pratibha Stevenson ALT [Catalytic activity/Vol] 25 U/L Normal 16-63 [facility] Comment on above: Performed By: #### C BC #### [facility] [address] [place] [address] Dr. Pratibha Stevenson Anion gap [Moles/Vol] 10.7 mmol/L Normal [facility] Comment on above: Performed By: #### C BC #### [facility] [address] [place] [address] Dr. Pratibha Stevenson AST [Catalytic activity/Vol] 18 U/L Normal 15-37 [facility] Comment on above: Performed By: #### C BC #### [facility] [address] [address] [address] Pratibha Stevenson Bilirubin [Mass/Vol] 0.7 mg/dL Normal 0.2-1.0 [facility] Comment on above: Performed By: #### C BC #### [facility] [address] [address] [address] Pratibha Stevenson Calcium [Mass/Vol] 8.5 mg/dL Normal 8.5-10.1 [facility] Comment on above: Performed By: #### C BC #### [facility] [address] [address] [address] Pratibha Stevenson Chloride [Moles/Vol] 106 mmol/L Normal 98-107 [facility] Comment on above: Performed By: #### C BC #### [facility] [address] [place] [address] Dr. Pratibha Stevenson CO2 [Moles/Vol] 27.1 mmol/L Normal 21.0-32.0 [facility] Comment on above: Performed By: #### C BC #### [facility] [address] [place] [address] Dr. Pratibha Stevenson Creatinine [Mass/Vol] 1.16 mg/dL Normal 0.70-1.30 [facility] Comment on above: Performed By: #### C BC #### [facility] [address] [place] [address] Dr. Pratibha Stevenson EGFR-AF PUERTO RICAN >60 Normal >=60 [facility] Comment on above: Performed By: #### C BC #### [facility] [address] [place] [address] Dr. Pratibha Stevenson EGFR-NON AF PUERTO RICAN >60 Normal >=60 [facility] Comment on above: Performed By: #### C BC #### [facility] [address] [place] [address] Dr. Pratibha Stevenson Globulin (S) [Mass/Vol] 2.5 g/dL Normal [facility] Comment on above: Performed By: #### C BC #### [facility] [address] [address] [address] Pratibha Stevenson Glucose [Mass/Vol] 90 mg/dL Normal 74-106 [facility] Comment on above: Performed By: #### C BC #### [facility] [id number] Pratibha Stevenson Potassium [Moles/Vol] 3.8 mmol/L Normal 3.5-5.1 [facility] Comment on above: Performed By: #### C BC #### [facility] [address] [address] [address] Pratibha Stevenson Protein [Mass/Vol] 5.7 g/dL Critically low 6.4-8.2 [facility] Comment on above: Performed By: #### C BC #### [facility] [address] [address] [address] Pratibha Stevenson Sodium [Moles/Vol] 140 mmol/L Normal 136-145 [facility] Comment on above: Performed By: #### C BC #### [facility] [address] [address] [address] Pratibha Stevenson Urea nitrogen [Mass/Vol] 12.0 mg/dL Normal 7.0-18.0 [facility] Comment on above: Performed By: #### C BC #### [facility] [address] [address] [address] Pratibha Stevenson Urea nitrogen/Creatinine [Mass ratio] 10.3 mg/mg Normal [facility] Comment on above: Performed By: #### C BC #### [facility] [address] [address] [address] Pratibha Stevenson XR KUB 1 VIEWon [...] EDIS HERNÁNDEZ Date: 2022-05-09 05:31 Normal [facility] CBC AUTO DIFFon 05-08-2022 BASO # 0.1 103/ul Normal 0.0-0.1 [facility] Comment on above: Performed By: #### C BC #### [facility] [address] [address] [address] Pratibha Stevenson Basophils/100 WBC (Bld) 0.4 % Normal 0.2-2.0 [facility] Comment on above: Performed By: #### C BC #### [facility] [address] [place] [address] Dr. Pratibha Stevenson EO # 0.1 103/ul Normal 0.0-0.7 [facility] Comment on above: Performed By: #### C BC #### [facility] [address] [place] [address] Dr. Pratibha Stevenson Eosinophils/100 WBC (Bld) 1.0 % Normal 0.9-7.0 [facility] Comment on above: Performed By: #### C BC #### [facility] [address] [place] [address] Dr. Pratibha Stevenson Erythrocyte distribution width (RBC) [Ratio] 11.9 % Normal 11.0-15.0 [facility] Comment on above: Performed By: #### C BC #### [facility] [address] [place] [address] Dr. Pratibha Stevenson Hematocrit (Bld) [Volume fraction] 47.4 % Normal 42.0-54.0 [facility] Comment on above: Performed By: #### C BC #### [facility] [address] [place] [address] Dr. Pratibha Stevenson Hemoglobin (Bld) [Mass/Vol] 17.3 g/dL Normal 14.0-18.0 [facility] Comment on above: Performed By: #### C BC #### [facility] [address] [place] [address] Dr. Pratibha Stevenson IG # 0.05 10e3/ul Critically high 0.00-0.03 [facility] Comment on above: Performed By: #### C BC #### [facility] [address] [place] [address] Dr. Pratibha Stevenson IG % 0.4 % Normal 0.0-0.5 [facility] Comment on above: Performed By: #### C BC #### [facility] [address] [place] [address] Dr. Pratibha Stevenson LYMPH # 2.4 103/ul Normal 1.2-3.8 [facility] Comment on above: Performed By: #### C BC #### [facility] [address] [place] [address] Dr. Pratibha Stevenson Lymphocytes/100 WBC (Bld) 18.6 % Critically low 20.5-60.0 [facility] Comment on above: Performed By: #### C BC #### [facility] [address] [place] [address] Dr. Pratibha Stevenson MANUAL DIFF REQ NO Normal [facility] Comment on above: Performed By: #### C BC #### [facility] [address] [place] [address] Dr. Pratibha Stevenson MCH (RBC) [Entitic mass] 31.3 pg Normal 25.9-34.0 [facility] Comment on above: Performed By: #### C BC #### [facility] [address] [place] [address] Dr. Pratibha Stevenson MCHC (RBC) [Mass/Vol] 36.5 g/dL Critically high 29.9-35.2 [facility] Comment on above: Performed By: #### C BC #### [facility] [address] [place] [address] Dr. Pratibha Stevenson MCV (RBC) [Entitic vol] 85.7 fL Normal 80.0-94.0 [facility] Comment on above: Performed By: #### C BC #### [facility] [address] [address] [address] Pratibha Stevenson MONO # 0.6 103/ul Normal 0.3-0.8 [facility] Comment on above: Performed By: #### C BC #### [facility] [address] [place], [place] [id number] Dr. Pratibha Stevenson Monocytes/100 WBC (Bld) 5.0 % Normal 1.7-12.0 [facility] Comment on above: Performed By: #### C BC #### [facility] [address] [place] [address] Dr. Pratibha Stevenson NEUT # 9.6 103/ul Critically high 1.4-6.5 [facility] Comment on above: Performed By: #### C BC #### [facility] [address] [place] [address] Dr. Pratibha Stevenson Neutrophils/100 WBC (Bld) 74.6 % Normal 43.0-75.0 [facility] Comment on above: Performed By: #### C BC #### [facility] [address] [place] [address] Dr. Pratibha Stevenson Platelet mean volume (Bld) [Entitic vol] 9.6 fL Normal 9.5-13.5 [facility] Comment on above: Performed By: #### C BC #### [facility] [address] [place] [address] Dr. Pratibha Stevenson PLT 286 103/ul Normal 150-450 [facility] Comment on above: Performed By: #### C BC #### [facility] [address] [place] [address] Dr. Pratibha Stevenson RBC 5.53 106/ul Normal 4.70-6.10 [facility] Comment on above: Performed By: #### C BC #### [facility] [address] [place], [place] [id number] Dr. Pratibha Stevenson WBC 12.8 103/ul Critically high 4.0-11.0 [facility] Comment on above: Performed By: #### C BC #### [facility] [address] [place] [address] ABD/PELV W CONon [...] CHAGO ROLLINS Date: 2022-05-08 18:37 Normal [facility]on SARS-CoV-2 (COVID-19) RNA MARIKA+probe Ql (Unsp spec) Not detected Normal NOT DETECTED [facility] Comment on above: Result Comment: When [...] for this test is supported by the [employer] of [employer] and Human Service's declaration that [...] used). Performed By: #### C BC #### [facility] [address] [place] [address] Dr. Pratibha Stevenson ER URINE PROFILEon 3 Bilirubin Ql (U) SMALL Abnormal NEGATIVE [facility] Comment on above: Performed By: #### C BC #### [facility] [address] [place] [address] Dr. Pratibha Stevenson Clarity (U) CLEAR Normal CLEAR [facility] Comment on above: Performed By: #### C BC #### [facility] [address] [place] [address] Dr. Pratibha Stevenson Color (U) DK. ORANGE Abnormal YELLOW [facility] Comment on above: Performed By: #### C BC #### [facility] [address] [place] [address] Dr. Pratibha Stevenson ERUAHD A micrscopic examination will be performed if indicated. Normal [facility] Comment on above: Performed By: #### C BC #### [facility] [address] [place] [address] Dr. Pratibha Stevenson Glucose Ql (U) Negative Normal NEGATIVE [facility] Comment on above: Performed By: #### C BC #### [facility] [address] [place] [address] Dr. Pratibha Stevenson Hemoglobin Ql (U) LARGE Abnormal NEGATIVE [facility] Comment on above: Performed By: #### C BC #### [facility] [address] [place] [address] Dr. Pratibha Stevenson Ketones Ql (U) TRACE Abnormal NEGATIVE [facility] Comment on above: Performed By: #### C BC #### [facility] [address] [place] [address] Dr. Pratibha Stevenson LEUKOCYTES Negative Normal NEGATIVE [facility] Comment on above: Performed By: #### C BC #### [facility] [address] [place] [address] Dr. Pratibha Stevenson Nitrite Ql (U) Negative Normal NEGATIVE [facility] Comment on above: Performed By: #### C BC #### [facility] [address] [place] [address] Dr. Pratibha Stevenson pH (U) 6.5 [pH] Normal 5-9 [facility] Comment on above: Performed By: #### C BC #### [facility] [address] [place] [address] Dr. Pratibha Stevenson Protein (U) [Mass/Vol] 100 mg/dL Abnormal NEGATIVE/ TRACE [facility] Comment on above: Performed By: #### C BC #### [facility] [address] [place] [address] Dr. Pratibha Stevenson SPEC GRAVITY 1.010 Normal 1.005-<=1.025 [facility] Comment on above: Performed By: #### C BC #### [facility] [address] [place] [address] Dr. Pratibha Stevenson UR MICRO IND INDICATED Normal [facility] Comment on above: Performed By: #### C BC #### [facility] [address] [place] [address] Dr. Pratibha Stevenson Urobilinogen Qn (U) 1.0 {Butch'U}/dL Normal 0.2 - 1. 0 [facility] Comment on above: Performed By: #### C BC #### [facility] [address] [place] [address] Dr. Pratibha Stevenson LIPASEon 05-08-2022 Lipase [Catalytic activity/Vol] 417.0 U/L Critically high 73.0-393.0 [facility] Comment on above: Performed By: #### L ACT #### [facility] [address] [place] [address] Dr. Pratibha Stevenson PROF 14(COMP METB)on 023 Albumin [Mass/Vol] 4.5 g/dL Normal 3.4-5.0 [facility] Comment on above: Performed By: #### L ACT #### [facility] [address] [place] [address] Dr. Pratibha Stevenson Albumin/Globulin [Mass ratio] 1.3 {ratio} Normal [facility] Comment on above: Performed By: #### L ACT #### [facility] [address] [place] [address] Dr. Pratibha Stevenson ALP [Catalytic activity/Vol] 97 U/L Normal 46-116 [facility] Comment on above: Performed By: #### L ACT #### [facility] [address] [place] [address] Dr. Pratibha Stevenson ALT [Catalytic activity/Vol] 35 U/L Normal 16-63 [facility] Comment on above: Performed By: #### L ACT #### [facility] [address] [place] [address] Dr. Pratibha Stevenson Anion gap [Moles/Vol] 13.7 mmol/L Normal [facility] Comment on above: Performed By: #### L ACT #### [facility] [address] [place] [address] Dr. Pratibha Stevenson AST [Catalytic activity/Vol] 22 U/L Normal 15-37 [facility] Comment on above: Performed By: #### L ACT #### [facility] [address] [place] [address] Dr. Pratibha Stevenson Bilirubin [Mass/Vol] 0.7 mg/dL Normal 0.2-1.0 [facility] Comment on above: Performed By: #### L ACT #### [facility] [address] [place] [address] Dr. Pratibha Stevenson Calcium [Mass/Vol] 9.6 mg/dL Normal 8.5-10.1 [facility] Comment on above: Performed By: #### L ACT #### [facility] [address] [place] [address] Dr. Pratibha Stevenson Chloride [Moles/Vol] 99 mmol/L Normal 98-107 [facility] Comment on above: Performed By: #### L ACT #### [facility] [address] [address] [address] Pratibha Stevenson CO2 [Moles/Vol] 29.0 mmol/L Normal 21.0-32.0 [facility] Comment on above: Performed By: #### L ACT #### [facility] [address] [place] [address] Dr. Pratibha Stevenson Creatinine [Mass/Vol] 1.43 mg/dL Critically high 0.70-1.30 [facility] Comment on above: Performed By: #### L ACT #### [facility] [address] [place] [address] Dr. Pratibha Stevenson EGFR-AF PUERTO RICAN >60 Normal >=60 [facility] Comment on above: Performed By: #### L ACT #### [facility] [address] [place] [address] Dr. Pratibha Stevenson EGFR-NON AF PUERTO RICAN 58 mL/min/1.73m2 Critically low >=60 [facility] Comment on above: Performed By: #### L ACT #### [facility] [address] [place] [address] Dr. Pratibha Stevenson Globulin (S) [Mass/Vol] 3.5 g/dL Normal [facility] Comment on above: Performed By: #### L ACT #### [facility] [address] [address] [address] Pratibha Stevenson Glucose [Mass/Vol] 127 mg/dL Critically high 74-106 [facility] Comment on above: Performed By: #### L ACT #### [facility] [address] [place] [address] Dr. Pratibha Stevenson Potassium [Moles/Vol] 3.7 mmol/L Normal 3.5-5.1 [facility] Comment on above: Performed By: #### L ACT #### [facility] [address] [address] [address] Pratibha Stevenson Protein [Mass/Vol] 8.0 g/dL Normal 6.4-8.2 [facility] Comment on above: Performed By: #### L ACT #### [facility] [address] [address] [address] Pratibha Stevenson Sodium [Moles/Vol] 138 mmol/L Normal 136-145 [facility] Comment on above: Performed By: #### L ACT #### [facility] [address] [place] [address] Dr. Pratibha Stevenson Urea nitrogen [Mass/Vol] 13.0 mg/dL Normal 7.0-18.0 [facility] Comment on above: Performed By: #### L ACT #### [facility] [address] [place] [address] Dr. Pratibha Stevenson Urea nitrogen/Creatinine [Mass ratio] 9.1 mg/mg Normal [facility] Comment on above: Performed By: #### L ACT #### [facility] [address] [place] [address] Dr. Pratibha Stevenson URINE MICROSCOPIC ONLYon BACTERIA NONE SEEN Normal NONE SEEN [facility] Comment on above: Performed By: #### C BC #### [facility] [address] [place] [address] Dr. Pratibha Stevenson Bacteria identified Cx Nom (U) NOT INDICATED Normal [facility] Comment on above: Performed By: #### C BC #### [facility] [address] [place] [address] Dr. Pratibha Stevenson CAST NONE SEEN Normal NONE SEEN [facility] Comment on above: Performed By: #### C BC #### [facility] [address] [place] [address] Dr. Pratibha Stevenson Crystals LM Nom (Urine sed) NONE SEEN Normal NONE SEEN [facility] Comment on above: Performed By: #### C BC #### [facility] [address] [place] [address] Dr. Pratibha Stevenson Epithelial cells LM Ql (Urine sed) FEW Abnormal NONE SEEN /RARE [facility] Comment on above: Performed By: #### C BC #### [facility] [address] [place] [address] Dr. Pratibha Stevenson MUCOUS TRACE Abnormal NONE SEEN [facility] Comment on above: Performed By: #### C BC #### [facility] [address] [place] [address] Dr. Pratibha Stevenson RBC (U) [#/Vol] /uL Abnormal 0-2 [facility] Comment on above: Performed By: #### C BC #### [facility] [address] [place] [address] Dr. Pratibha Stevenson WBC 2-5 Abnormal NONE SEEN [facility] Comment on above: Performed By: #### C BC #### [facility] [address] [place] [address] Dr. Pratibha Stevenson XR CHEST 1 Von [...] RAMO ZEPEDA Date: 2022-05-08 17:40 Normal [facility] CBC AUTO DIFFon 03-23-2022 BASO # 0.1 103/ul Normal 0.0-0.1 [facility] Comment on above: Performed By: #### C BC #### [facility] [address] [place] [address] Dr. Pratibha Stevenson Basophils/100 WBC (Bld) 0.9 % Normal 0.2-2.0 [facility] Comment on above: Performed By: #### C BC #### [facility] [address] [place] [address] Dr. Pratibha Stevenson EO # 0.1 103/ul Normal 0.0-0.7 [facility] Comment on above: Performed By: #### C BC #### [facility] [address] [place] [address] Dr. Pratibha Stevenson Eosinophils/100 WBC (Bld) 1.7 % Normal 0.9-7.0 [facility] Comment on above: Performed By: #### C BC #### [facility] [address] [place] [address] Dr. Pratibha Stevenson Erythrocyte distribution width (RBC) [Ratio] 12.3 % Normal 11.0-15.0 [facility] Comment on above: Performed By: #### C BC #### [facility] [address] [place] [address] Dr. Pratibha Stevenson Hematocrit (Bld) [Volume fraction] 47.2 % Normal 42.0-54.0 [facility] Comment on above: Performed By: #### C BC #### [facility] [address] [place] [address] Dr. Pratibha Stevenson Hemoglobin (Bld) [Mass/Vol] 16.0 g/dL Normal 14.0-18.0 [facility] Comment on above: Performed By: #### C BC #### [facility] [address] [place] [address] Dr. Pratibha Stevenson IG # 0.03 10e3/ul Normal 0.00-0.03 [facility] Comment on above: Performed By: #### C BC #### [facility] [address] [place] [address] Dr. Pratibha Stevenson IG % 0.4 % Normal 0.0-0.5 [facility] Comment on above: Performed By: #### C BC #### [facility] [address] [place] [address] Dr. Pratibha Stevenson LYMPH # 2.5 103/ul Normal 1.2-3.8 [facility] Comment on above: Performed By: #### C BC #### [facility] [address] [place] [address] Dr. Pratibha Stevenson Lymphocytes/100 WBC (Bld) 30.4 % Normal 20.5-60.0 [facility] Comment on above: Performed By: #### C BC #### [facility] [address] [place] [address] Dr. Pratibha Stevenson MANUAL DIFF REQ NO Normal [facility] Comment on above: Performed By: #### C BC #### [facility] [address] [place] [address] Dr. Pratibha Stevenson MCH (RBC) [Entitic mass] 30.9 pg Normal 25.9-34.0 [facility] Comment on above: Performed By: #### C BC #### [facility] [address] [place] [address] Dr. Pratibha Stevenson MCHC (RBC) [Mass/Vol] 33.9 g/dL Normal 29.9-35.2 [facility] Comment on above: Performed By: #### C BC #### [facility] [address] [place] [address] Dr. Pratibha Stevenson MCV (RBC) [Entitic vol] 91.3 fL Normal 80.0-94.0 [facility] Comment on above: Performed By: #### C BC #### [facility] [address] [place] [address] Dr. Pratibha Stevenson MONO # 0.6 103/ul Normal 0.3-0.8 [facility] Comment on above: Performed By: #### C BC #### [facility] [address] [place] [address] Dr. Pratibha Stevenson Monocytes/100 WBC (Bld) 7.6 % Normal 1.7-12.0 [facility] Comment on above: Performed By: #### C BC #### [facility] [address] [place] [address] Dr. Pratibha Stevenson NEUT # 4.8 103/ul Normal 1.4-6.5 [facility] Comment on above: Performed By: #### C BC #### [facility] [address] [place] [address] Dr. Pratibha Stevenson Neutrophils/100 WBC (Bld) 59.0 % Normal 43.0-75.0 [facility] Comment on above: Performed By: #### C BC #### [facility] [address] [place] [address] Dr. Pratibha Stevenson Platelet mean volume (Bld) [Entitic vol] 10.2 fL Normal 9.5-13.5 [facility] Comment on above: Performed By: #### C BC #### [facility] [address] [place], [place] [address] Dr. Pratibha Stevenson PLT 258 103/ul Normal 150-450 [facility] Comment on above: Performed By: #### C BC #### [facility] [address] [address] [address] Pratibha Stevenson RBC 5.17 106/ul Normal 4.70-6.10 [facility] Comment on above: Performed By: #### C BC #### [facility] [id number] Pratibha Stevenson WBC 8.1 103/ul Normal 4.0-11.0 [facility] Comment on above: Performed By: #### C BC #### [facility] [address] ABD/PELVIS WO CONon [...] SHARON GODINEZ Date: 2022-03-22 23:40 Normal [facility] PROF 14(COMP METB)on 022 Albumin [Mass/Vol] 4.2 g/dL Normal 3.4-5.0 [facility] Comment on above: Performed By: #### L ACT #### [facility] [address] [place] [address] Dr. Pratibha Stevenson Albumin/Globulin [Mass ratio] 1.2 {ratio} Normal [facility] Comment on above: Performed By: #### L ACT #### [facility] [address] [place] [address] Dr. Pratibha Stevenson ALP [Catalytic activity/Vol] 84 U/L Normal 46-116 [facility] Comment on above: Performed By: #### L ACT #### [facility] [address] [place] [address] Dr. Pratibha Stevenson ALT [Catalytic activity/Vol] 32 U/L Normal 16-63 [facility] Comment on above: Performed By: #### L ACT #### [facility] [address] [place] [address] Dr. Pratibha Stevenson Anion gap [Moles/Vol] 10.6 mmol/L Normal [facility] Comment on above: Performed By: #### L ACT #### [facility] [address] [place] [address] Dr. Pratibha Stevenson AST [Catalytic activity/Vol] 18 U/L Normal 15-37 [facility] Comment on above: Performed By: #### L ACT #### [facility] [address] [place] [address] Dr. Pratibha Stevenson Bilirubin [Mass/Vol] 0.4 mg/dL Normal 0.2-1.0 [facility] Comment on above: Performed By: #### L ACT #### [facility] [address] [place] [address] Dr. Pratibha Stevenson Calcium [Mass/Vol] 9.8 mg/dL Normal 8.5-10.1 [facility] Comment on above: Performed By: #### L ACT #### [facility] [address] [address] [address] Pratibha Stevenson Chloride [Moles/Vol] 103 mmol/L Normal 98-107 [facility] Comment on above: Performed By: #### L ACT #### [facility] [address] [address] [address] Pratibha Stevenson CO2 [Moles/Vol] 28.2 mmol/L Normal 21.0-32.0 [facility] Comment on above: Performed By: #### L ACT #### [facility] [address] [address] [address] Pratibha Stevenson Creatinine [Mass/Vol] 1.24 mg/dL Normal 0.70-1.30 [facility] Comment on above: Performed By: #### L ACT #### [facility] [address] [place] [address] Dr. Pratibha Stevenson EGFR-AF PUERTO RICAN >60 Normal >=60 [facility] Comment on above: Performed By: #### L ACT #### [facility] [address] [address] [address] Pratibha Stevenson EGFR-NON AF PUERTO RICAN >60 Normal >=60 [facility] Comment on above: Performed By: #### L ACT #### [facility] [address] [address] [address] Pratibha Stevenson Globulin (S) [Mass/Vol] 3.6 g/dL Normal [facility] Comment on above: Performed By: #### L ACT #### [facility] [address] [address] [address] Pratibha Stevenson Glucose [Mass/Vol] 102 mg/dL Normal 74-106 [facility] Comment on above: Performed By: #### L ACT #### [facility] [address] [address] [address] Pratibha Stevenson Potassium [Moles/Vol] 3.8 mmol/L Normal 3.5-5.1 [facility] Comment on above: Performed By: #### L ACT #### [facility] [address] [address] [address] Pratibha Stevenson Protein [Mass/Vol] 7.8 g/dL Normal 6.4-8.2 [facility] Comment on above: Performed By: #### L ACT #### [facility] [address] [address] [address] Pratibha Stevenson Sodium [Moles/Vol] 138 mmol/L Normal 136-145 [facility] Comment on above: Performed By: #### L ACT #### [facility] [address] [address] [address] Pratibha Stevenson Urea nitrogen [Mass/Vol] 18.0 mg/dL Normal 7.0-18.0 [facility] Comment on above: Performed By: #### L ACT #### [facility] [address] [address] [address] Pratibha Stevenson Urea nitrogen/Creatinine [Mass ratio] 14.5 mg/mg Normal [facility] Comment on above: Performed By: #### L ACT #### [facility] [address] [place] [address] Dr. Pratibha Stevenson Vital Signs Date Time Vital Sign Value Performing Clinician Faci lity 04-12-2024 15:20-0500 Body height 175.3 cm Ciera Torres MD Work Phone: [facility] 04-12-2024 15:20-0500 Body mass index (BMI) [Ratio] 31.94 kg/m2 Ciera Torres MD Work Phone: [facility] 04-12-2024 15:20-0500 Body temperature 98.1 [degF] Ciera Torres MD Work Phone: [facility] 04-12-2024 15:20-0500 Body weight 98.16 kg Ciera Torres MD Work Phone: [facility] 04-12-2024 15:20-0500 Diastolic blood pressure 78 mm[Hg] Ciera Torres MD Work Phone: [facility] 04-12-2024 15:20-0500 Heart rate 82 /min Ciera Torres MD Work Phone: [facility] 04-12-2024 15:20-0500 SaO2% (BldA) [Mass fraction] 99 % Ciera Torres MD Work Phone: [facility] [email or web address] [facility] 04-12-2024 15:20-0500 Systolic blood pressure 123 mm[Hg] Ciera Torres MD Work Phone: [facility] 04-08-2024 10:17-0500 Body height 175.3 cm Lisa Ceballos MD Work Phone: [facility] 04-08-2024 10:17-0500 Body mass index (BMI) [Ratio] 32.34 kg/m2 Lisa Ceballos MD Work Phone: [facility] 04-08-2024 10:17-0500 Body weight 99.34 kg Lisa Ceballos MD Work Phone: [facility] 04-08-2024 10:17-0500 Diastolic blood pressure 86 mm[Hg] Lisa Ceballos MD Work Phone: [facility] 04-08-2024 10:17-0500 Heart rate 80 /min Lisa Ceballos MD Work Phone: [facility] 04-08-2024 10:17-0500 SaO2% (BldA) [Mass fraction] 97 % Lisa Ceballos MD Work Phone: [facility] 04-08-2024 10:17-0500 Systolic blood pressure 118 mm[Hg] Lisa Ceballos MD Work Phone: [facility] 03-26-2024 09:05-0500 Body height 175.3 cm Armando Meke PA-C Work Phone: [facility] 03-26-2024 09:05-0500 Body mass index (BMI) [Ratio] 32.22 kg/m2 Armando Meek PA-C Work Phone: [facility] 03-26-2024 09:05-0500 Body weight 98.97 kg [facility]ando [facility]ek [facility]-C [facility] 03-26-2024 09:05-0500 Diastolic blood pressure 66 mm[Hg] Armando Fantasma COREY-C Work Phone: [facility] [email or web address] [facility] 03-26-2024 09:05-0500 Heart rate 71 /min Armando Fantasma COREY-C [email or web address] 03-26-2024 09:05-0500 Systolic blood pressure 124 mm[Hg] Armando Fantasma COREY-C [facility] 03-02-2024 11:02-0400 Body temperature 98.8 [degF] Kym Vidal MD Work Phone: [employer] 03-02-2024 11:02-0400 Diastolic blood pressure 72 mm[Hg] Kym Vidal MD Work Phone: [employer] 03-02-2024 11:02-0400 Heart rate 83 /min Kym Vidal MD Work Phone: [employer] 03-02-2024 11:02-0400 Respiratory rate 16 /min Kym Vidal MD Work Phone: [employer] 03-02-2024 11:02-0400 SaO2% (BldA) [Mass fraction] 98 % Kym Vidal MD Work Phone: [employer] 03-02-2024 11:02-0400 Systolic blood pressure 120 mm[Hg] Kym Vidal MD Work Phone: [employer] 03-01-2024 03:44-0400 Body mass index (BMI) [Ratio] 31.82 kg/m2 Kym Vidal MD Work Phone: [employer] 03-01-2024 03:44-0400 Body weight 97.75 kg Kym Vidal MD Work Phone: [employer] 02-27-2024 00:30-0400 Body height 175.3 cm Kym Vidal MD Work Phone: [facility] 07-21-2022 08:57-0400 Blood Pressure Location Shirley Lue [facility] 07-21-2022 08:57-0400 Diastolic blood pressure 69 mm[Hg] Shirley Lue [facility] 07-21-2022 08:57-0400 Heart rate 74 /min Shirley Lue [facility] 07-21-2022 08:57-0400 Systolic blood pressure 133 mm[Hg] Shirley Lue [facility] 07-13-2022 09:17-0400 Blood Pressure Location Shirley Lue [facility] 07-13-2022 09:17-0400 Diastolic blood pressure 68 mm[Hg] Shirley Lue [facility] [place] 07-13-2022 09:17-0400 Heart rate 73 /min Shirley Lue [facility] 07-13-2022 09:17-0400 Systolic blood pressure 124 mm[Hg] Shirley Lue [facility] [place] Encounters Encounter Date Encounter Type Care Provider Facility Start: 04-19-2024 End: 04-19-2024 ambulatory ARMANDO Bonilla [facility] Start: 04-12-2024 End: 04-12-2024 Office outpatient new 30 minutes Ciera Torres MD Work Phone: [facility] Comment on above: Pancytopenia (CMS-HC C) Start: 04-12-2024 End: 04-17-2024 ambulatory CIERA TORRES [facility] Start: 04-11-2024 End: 04-11-2024 Emergency department patient visit LATRICIA Donovan Tha [facility] Start: 04-09-2024 End: 04-09-2024 ambulatory [facility] Start: 04-09-2024 End: 04-09-2024 [facility] Start: 04-08-2024 End: 04-08-2024 Office outpatient new 45 minutes Lisa Ceballos MD Work Phone: [facility] Comment on above: Recurrent syncope (P rimary Dx); Seizure (CMS-HCC) Start: 04-08-2024 End: 04-08-2024 ambulatory [facility] Start: 04-05-2024 End: 04-05-2024 Telephone encounter Diana Ledbetter CMA [facility] Start: 04-03-2024 End: 04-03-2024 ambulatory [facility] Start: 04-01-2024 End: 04-01-2024 Telephone [facility] Comment on above: information wrong on referral Start: 03-27-2024 End: 04-03-2024 Telephone encounter Oriaan [facility] Comment on above: prior authorization Start: 03-26-2024 End: 03-26-2024 [facility] Start: 03-26-2024 End: 03-26-2024 Office outpatient new 60 minutes [facility] Meek PA-C Work Phone: [facility] Comment on above: Seizure (CMS-HCC) (P rimary Dx); Migraine without aura and without status migrainosus, not intractable; Status migrainosus; Recurrent syncope; Pancytopenia (CMS-HCC); Functional tremor Start: 03-25-2024 End: 03-25-2024 Telephone encounter Breanna Philip [facility] Comment on above: REFERRAL Start: 02-27-2024 End: 03-02-2024 Evaluation and management of inpatient Kym Vidal MD Work Phone: [address] Comment on above: Pancytopenia (HCC) ( Primary Dx); Hip pain, unspecified laterality Start: 02-26-2024 End: 02-26-2024 Emergency department patient visit DOLORES REYES [facility] Start: 06-14-2023 End: 06-14-2023 ambulatory [facility] Start: 06-14-2023 End: 06-14-2023 Subsequent hospital visit by physician Manjit Waller [facility] Comment on above: Arrived Start: 06-12-2023 End: 06-12-2023 ambulatory [facility] Start: 06-12-2023 End: 06-12-2023 Subsequent hospital visit by physician Manjit Waller [facility] Comment on above: Arrived Start: 06-09-2023 End: 06-09-2023 ambulatory [facility] Start: 06-09-2023 End: 06-09-2023 Subsequent hospital visit by physician Flash Goodwin PTA [facility] Comment on above: Arrived Start: 06-05-2023 End: 06-05-2023 ambulatory [facility] Start: 05-31-2023 End: 05-31-2023 ambulatory [facility] Start: 05-29-2023 End: 05-29-2023 ambulatory [facility] Start: 05-26-2023 End: 05-26-2023 ambulatory [facility] Start: 05-22-2023 End: 05-22-2023 ambulatory [facility] Start: 05-17-2023 End: 05-17-2023 ambulatory [facility] Start: 03-13-2023 End: 03-13-2023 ambulatory [facility] Start: 08-11-2022 End: 08-11-[address] LATRICIA GARCIA . Facility: Start: 07-22-2022 End: 07-23-[address] LATRICIA GARCIA . Facility: Start: 07-21-2022 End: 07-22-2022 ambulatory Shirley ZionJoselin Murrell Facility: [facility] Start: 07-21-2022 End: 07-21-2022 Patient encounter procedure Shirley Murrell [facility] Start: 07-20-2022 End: 07-20-[address] LATRICIA GARCIA . Facility: Start: 07-13-2022 End: 07-14-2022 ambulatory Shirley M. Jollylala Facility:[facility] Start: 07-13-2022 End: 07-13-2022 Patient encounter procedure Shirley Murrell [facility] Start: 07-06-2022 End: 07-07-2022 ambulatory SHIRLEY M JOLLYLala . Facility: Start: 05-23-2022 End: 05-24-2022 ambulatory Shirley MJoselin Holdenlala Facility:[facility] Start: 05-23-2022 End: 05-23-2022 Patient encounter procedure Shirley Murrell [facility] Start: 05-11-2022 End: 05-12-2022 ambulatory Shirley Murrell Facility:[id number] Start: 05-08-2022 End: 05-12-[address] LATRICIA GARCIA . Facility: Start: 03-23-2022 End: 03-23-[address] LATRICIA GARCIA . Facility: Procedures Date Procedure Procedure Detail Performing Clinician Start: 04-19-2024 Follow-up visit Follow-up ARMANDO MEEK Start: 03-26-2024 Adult depression screening assessment Armando [...] OF BLOOD SMEAR Jenny Alvarez APRN - [employer] Work Phone: Start: 03-01-2024 Rhythm ecg 1-3 leads w/interpretation & report Unknown Provider Result Start: 03-01-2024 MYELOID MALIGNANCIES MUTATION PANEL Ruth Wyman MD Work Phone: Start: 03-01-2024 Diagnostic bone marrow biopsies Jenny Alvarez ENERGY SCHEDULER [facility] Work Phone: Start: 03-01-2024 Rhythm ecg 1-3 leads w/interpretation & report Unknown Provider Result Start: 03-01-2024 Blood count complete auto&auto difrntl wbc Jenny Alvarez APRN - [employer] Work Phone: Start: 03-01-2024 SCAN OF BLOOD SMEAR Jenny Alvarez ENERGY SCHEDULER - [employer] Work Phone: Start: 02-29-2024 End: 02-29-2024 Ecg routine ecg w/least 12 lds i&r only Ruth Wyman MD Work Phone: Start: 02-29-2024 Blood smear peripheral interp phys w/writ report Jenny Alvarez APRN - [employer] Work Phone: Start: 02-29-2024 DIAGNOSTIC QUAL BCR-ABL1 ASSAY W REFLEX TO P190 OR P210 QUANT ASSAYS Jenny Alvarez ENERGY SCHEDULER - [employer] Work Phone: Start: 02-29-2024 Calcium ionized Maureen Wei Forbes D O Work Phone: Start: 02-29-2024 Anion gap [Moles/Vol] Chpais Rizvi MD Work Phone: Start: 02-29-2024 Basic [...] VIRUS (EBV) ANTIBODY PANEL I Yasmin Ambrosio ENERGY SCHEDULER - [employer] Work Phone: Start: 02-28-2024 Mri brain brain stem w/o w/contrast material Jenny Gunter ENERGY SCHEDULER - [employer] Work Phone: Start: 02-28-2024 End: 02-28-2024 Ecg [...] Phone: Start: 02-28-2024 Anion gap [Moles/Vol] Jenny S Gunter ENERGY SCHEDULER - [employer] Work Phone: Start: 02-28-2024 GLOMERULAR FILTRATION RATE, ESTIMATED Jenny S Gunter ENERGY SCHEDULER - [employer] Work Phone: Start: 02-28-2024 Lactate dehydrogenase ldh Ruth Wyman MD Work Phone: Start: 02-27-2024 VITAMIN B12 & FOLATE Yasmin Ambrosio ENERGY SCHEDULER - [employer] Work Phone: Start: 02-27-2024 EEG 24 HOUR AMBULATORY Jenny Gunter ENERGY SCHEDULER - [employer] Work Phone: Start: 02-27-2024 Electroencephalogram w/rec awake&asleep Jenny Gunter ENERGY SCHEDULER - [employer] Work Phone: Start: 02-27-2024 End: 02-27-2024 C-reactive protein Barak Colon MD Work Phone: Start: 02-27-2024 End: 02-27-2024 Calcium ionized Jenny Gunter AP RN - [employer] Work Phone: Start: 02-27-2024 REFERENCE LAB SAMPLE Jenny Gunter A PRN - [employer] Work Phone: Start: 02-27-2024 Urnls dip stick/tablet reagent auto microscopy Jenny Gunter ENERGY SCHEDULER - [employer] Work Phone: Start: 02-27-2024 End: 02-27-2024 Rhythm ecg 1-3 leads w/interpretation & report Unknown Provider Result Start: 05-23-2022 Cystoscopic removal of ureteric stent Shirley Murrell Start: 05-08-2022 Cystoscopic laser lithotripsy of ureteric calculus Shirley Murrell Plan of Treatment Date Care Activity Detail Author Start: 04-11-2025 Adult BMI Screening Adult BMI Screening [facility] Start: 04-11-2025 Tobacco Screening Tobacco Screening [facility] Start: 04-08-2025 Adult BMI Screening Adult BMI Screening [facility] Start: 03-26-2025 Adult BMI Screening Adult BMI Screening [facility] Start: 03-26-2025 Depression Screening Depression Screening [facility] Start: 05-17-2024 End: 05-17-2024 Patient encounter procedure 05/17/2024 9:00 AM EST Office Visit [facility] [address] [place] [phone] Lisa Ceballos MD [address] [place] [address] [facility] Start: 04-19-2024 End: 04-19-2024 Patient encounter procedure 04/19/2024 9:00 AM EST Office Visit [facility] [address] [place] [phone] Armando Meek PA-C [address] [place] [phone] [facility] Start: 04-12-2024 End: 04-12-2024 Patient encounter procedure 04/12/2024 3:30 PM EST Office Visit [facility] [address] [place] [phone] Ciera Torres MD [address] [place] [id number] [facility] Start: 04-09-2024 End: 04-09-2024 Patient encounter procedure [facility] Start: 04-08-2024 End: 04-08-2025 Echo complete W/O contrast Echo complete W/O contrast Echocardiography Routine Recurrent syncope Expected: 04/08/2024, Expires: 04/08/2025 [facility] Work Phone: Comment on above: Expected: 04/08/2024, Expires: Start: 04-08-2024 End: 04-08-2025 Holter monitor study Holter monitor 24-48 hour Cardiac Services Routine Recurrent syncope Expected: 04/08/2024, Expires: 04/08/2025 [email or web address] Comment on above: Expected: 04/08/2024, Expires: Start: 04-08-2024 End: 04-08-2024 Patient encounter procedure 04/08/2024 10:30 AM EST Office Visit [facility] [address] [address] Lisa Ceballos MD [address] [place] [address] [facility] Start: 04-03-2024 End: 04-03-2024 Patient encounter procedure 04/03/2024 1:00 PM EST Appointment [facility] - Neurophysiology [address] [place] [address] [facility] - Neurophysiology Start: 04-01-2024 End: 03-02-2025 Vitamin B12 & Folate Vitamin B12 & Folate Lab Routine Pancytopenia (HCC) Expected: 04/01/2024 (Approximate), Expires: 03/02/[address] [facility] Comment on above: Expected: 04/01/2024 (Approximate), Expi res: 03/02/2025 Start: 03-26-2024 End: 03-26-2024 Patient encounter procedure 03/26/2024 9:00 AM EST Office Visit [facility] [address] [place] [address] Armando Meek, PAJorge LC [address] [place] [address] [facility] Start: 03-02-2024 End: 03-02-2025 CBC panel - Blood by Automated count CBC Lab Routine Pancytopenia (HCC) Expected: 03/02/2024 (Approximate), Expires: 03/02/[address] [facility] Comment on above: Expected: 03/02/2024 (Approximate), Expi res: 03/02/2025 Start: 12-31-2023 COVID-19 Vaccine ( season) COVID-19 Vaccine ( season) [facility] Start: 12-31-2023 Influenza vaccination Influenza Vaccine [facility] Start: 11-30-2023 Influenza vaccination Flu vaccine (#1) [facility] Start: 06-26-2023 End: 06-26-2023 Patient encounter procedure 06/26/2023 2:30 PM EST Appointment [facility] [address] [place] [phone] Manjit Waller [facility] Start: 06-23-2023 End: 06-23-2023 Patient encounter procedure 06/23/2023 1:45 PM EST Appointment [facility] [address] [place] [phone] Flash Goodwin PTA [facility] Start: 06-19-2023 End: 06-19-2023 Patient encounter procedure 06/19/2023 3:15 PM EST Appointment [facility] Physical Therapy [address] [place] [phone] Manjit Waller [facility] Start: 06-14-2023 End: 06-14-2023 Patient encounter procedure 06/14/2023 3:30 PM EST Appointment [facility] [address] [place] [phone] Manjit Waller [facility] Start: 06-12-2023 End: 06-12-2023 Patient encounter procedure 06/12/2023 3:15 PM EST Appointment [facility] [address] [place] [id number] Manjit Waller [facility] Start: 11-29-2022 Influenza vaccination Flu vaccine (#1) [facility] Start: 08-18-2011 DTaP,Tdap and Td Vaccines (1 - Tdap) DTaP,Tdap and Td Vaccines (1 - Tdap) [facility] Start: 2010 Adult BMI Follow Up Plan Adult BMI Follow Up Plan [facility] Start: 2010 Adult BMI Screening Adult BMI Screening [facility] Start: 2010 Hepatitis C screening Hepatitis C screen [facility] Start: 08-18-2007 HIV screening HIV screen [facility] Start: 2005 Varicella vaccine (1 of 2 - 13+ 2-dose series) Varicella vaccine (1 of 2 - 13+ 2-dose series) [facility] Start: 2004 Depression Screen Depression Screen [facility] Start: 2004 Depression Screening Depression Screening [facility] Start: 2004 Tobacco Screening Tobacco Screening [facility] Start: 08-18-2003 DTaP,Tdap and Td Vaccines (6 - Tdap) DTaP,Tdap and Td Vaccines (6 - Tdap) [facility] Start: 08-18-2003 DTaP/Tdap/Td vaccine (6 - Tdap) DTaP/Tdap/Td vaccine (6 - Tdap) [facility] Start: 1998 Pneumococcal 0-64 years Vaccine (1 of 2 - PCV) Pneumococcal 0-64 years Vaccine (1 of 2 - PCV) [facility] Start: 1993 Varicella vaccine (1 of 2 - 2-dose childhood series) Varicella vaccine (1 of 2 - 2-dose childhood series) [facility] Start: 02-16-1993 COVID-19 Vaccine (#1) COVID-19 Vaccine (#1) [facility] End: 03-03-2024 CBC W Auto Differential panel - Blood CBC with Auto Differential Lab Routine Daily for 3 Days starting 03/01/2024 until 03/03/2024, [address] [facility] Comment on above: Daily for 3 Days starting 03/01/2024 unt il 03/03/2024, 2 completed End: 03-01-2024 Chromosome analysis, bone marrow [facility] Comment on above: Once for 1 Occurrences starting 03/01/20 24 until 03/01/2024 Diagnostic Qual BCR- ABL1 Assay w Reflex to p190 or p210 Quant Assaysantitative Assays Diagnostic Qual BCR-ABL1 Assay w Reflex to p190 or p210 Quant Assaysantitative Assays Lab Routine 02/29/2024 5:30 PM EDT [facility] End: 03-26-2025 EEG EEG Neurology Routine Seizure ([facility]) Recurrent syncope 1 Occurrences starting 03/26/2024 until 03/26/2025 [facility] Work Phone: Comment on above: 1 Occurrences starting 03/26/2024 until 03/26/2025 End: 02-29-2024 Flow Cytometry Leukemia/Lymphoma, Bone Marrow Flow Cytometry Leukemia/Lymphoma, Bone Marrow Lab Routine One Time for 1 Occurrences starting 02/29/2024 until 02/29/2024 [facility] Comment on above: One Time for 1 Occurrences starting 01/31 until 02/29/2024 End: 03-01-2024 Flow Cytometry Leukemia/Lymphoma, Bone Marrow [facility] Comment on above: Once for 1 Occurrences starting 03/01/20 until 03/01/2024 End: 03-02-2024 Leukemia / lymphoma phenotype [facility] Work Phone: Comment on above: One Time for 1 Occurrences starting 06/2023 until 03/02/2024 End: 03-01-2024 Myeloid Malignancies Mutation Panel [facility] Comment on above: One Time for 1 Occurrences starting 05/2023 until 03/01/2024 Oxygen therapy [[facility] Data Set] Initiate Oxygen Therapy Protocol Respiratory Care Routine As Needed until discontinued starting 02/27/2024 [facility] Work Phone: Comment on above: As Needed until discontinued starting Immunizations Immunization Date Immunization Notes Care Provider [facility]ush[facility] 12-26-1997 DTaP, unspecified formulation Shirley Lue [facility] 12-26-1997 measles, mumps and rubella virus vaccine Shirley Lue [facility] 01-10-1994 DTaP, unspecified formulation Shirley Lue [facility] 01-10-1994 hepatitis B vaccine, pediatric or pediatric/adolescent dosage Shirley Lue [facility] 01-10-1994 Hib, unspecified formulation Shirley Lue [facility] 01-10-1994 measles, mumps and rubella virus vaccine Shirley Lue [facility] 03-12-1993 Hib, unspecified formulation Shirley Lue [facility] 01-01-1993 hepatitis B vaccine, pediatric or pediatric/adolescent dosage Shirley Lue [facility] 01-01-1993 Hib, unspecified formulation Shirley Lue [facility] 1992 hepatitis B vaccine, pediatric or pediatric/adolescent dosage Shirley Lue [facility] 1992 Hib, unspecified formulation Shirley Lue [facility] Payers Date Payer Category Payer Medicaid [id number] 1992 Unknown [id number] 2.16.8 40.1.902148.3.579.2.727 1992 Unknown [id number] 2.16.8 40.1.041628.3.579.2.727 1992 Unknown [id number] 2.16.8 40.1.351894.3.579.2.727 1992 Unknown [id number] 2.16.8 40.1.108381.3.579.2.727 1992 Unknown [id number] 2.16.84 0.1.830066.3.579.2.593 1992 Unknown [id number] 2.16.84 0.1.136519.3.579.2.593 1992 Unknown [id number] 2.16.84 0.1.015992.3.579.2.593 1992 Unknown [id number] 2.16.84 0.1.720235.3.579.2.593 1992 Unknown [id number] 2.16.84 0.1.618488.3.579.2.593 1992 Unknown [id number] 2.16.84 0.1.150772.3.579.2.593 1992 Unknown [id number] 2.16.8 40.1.311036.3.579.2.173 1992 Unknown [id number] 2.16.8 40.1.147583.3.579.2.173 1992 Unknown [id number] 2.16.8 40.1.703806.3.579.2.173 1992 Unknown [id number] 2.16.8 40.1.840689.3.579.2.173 1992 Unknown [id number] 2.16.8 40.1.919539.3.579.2.173 1992 Unknown [id number] 2.16.8 40.1.063983.3.579.2.173 1992 Unknown [id number] 2.16.8 40.1.292035.3.579.2.173 1992 Unknown [id number] 2.16.8 40.1.216099.3.579.2.173 1992 Unknown [id number] 2.16.8 40.1.759630.3.579.2.173 1992 Unknown [id number] 2.16.8 40.1.819444.3.579.2.173 1992 Unknown [id number] 2.16.8 40.1.805013.3.579.2.173 1992 Unknown [id number] 2.16.8 40.1.619527.3.579.2.1286 1992 Unknown [id number] 2.16.8 40.1.820167.3.579.2.1286 1992 Unknown [id number] 2.16.8 40.1.348188.3.579.2.1286 1992 Unknown [id number] 2.16.8 40.1.513877.3.579.2.1286 1992 Unknown [id number] 2.16.8 40.1.322870.3.579.2.1286 1992 Unknown [id number] 2.16.8 40.1.053944.3.579.2.1286 1992 Unknown [id number] 2.16.8 40.1.229607.3.579.2.1286 1992 Unknown [id number] 2.16.8 40.1.716975.3.579.2.1286 1957 Medicaid [id number] 1957 Self-pay [id number] Self-pay Social History Date Type Detail Facility Tobacco smoking status [facility] Start: 06-11-2020 End: 02-27-2024 Sex Assigned At Male [facility] Start: 07-13-2022 End: 07-21-2022 Tobacco smoking status Light tobacco smoker (finding) [facility] Tobacco smoking status Never [facility] consumption [facility] Start: 1992 Sex Assigned At Not on file B ON [employer] Start: 02-26-2024 [facility] tobacco daily [facility] Start: 01-30-2024 History of tobacco use Cigarette Smo ker [facility] Start: 02-26-2024 End: 03-26-2024 Tobacco use and exposure Former smokeless tobacco user [facility] Start: 03-01-2024 End: 04-11-2024 Alcoholic beverage intake Ex-drinker (finding) [facility] Start: 06-11-2020 End: 02-27-2024 History of Social function [facility] Has the electric, [employer], [employer], or water [employer] threatened to shut off services in your home in past 12Mo No [facility] [place] (I/We) worried fanta er (my/our) food would run out before (I/we) got money to buy more. Never true [facility] Start: 12-04-2014 Sex Male (finding) [facility] Start: 03-26-2024 Tobacco smoking stat [facility] Ex-smoker [facility] Start: 01-30-2024 History of tobacco use Current smoke r [facility] Functional Status Date Assessment Result Facility 07-21-2022 Functional Status N/A [facility] 07-13-2022 Functional Status N/A [facility] 05-12-2022 Functional Status N/A [facility] Clinical Notes 05-26-2022 to 04-12-2024 Ciera Torres MD - 04/12/2024 3:30 PM Ro Ceballos MD - 04/08/2024 10:30 AM ESTTelephone Encounter - Diana Ledbetter CMA - 04/05/2024 2:35 PM Daphne Wesley RN - 03/02/2024 2:01 PM EDT Note Date & Type Note Facility 04-12-2024 History of Present illness Narrative Images from the original note were not included. [facility] 04/12/24 Ethan Donald is a 33 y.o. year old male seen today in the oncology clinic. No chief complaint on file. History of Present Illness: Mr. Donald is a 33 y.o. male who was intially admitted to [facility] on 02/27/2024 for multiple personality disorder, fibromyalgia, tobacco abuse disorder who presented for evaluation of seizure-like activity that was initially seen while he was sleeping. On 02/23/2024 patient did bite his tongue and this was witnessed by his . Patient also reports sweating heavily at that time as well as high blood pressure. Prior to admission patient had no known previous history of seizures. Imagings were obtained during hospital stay, CT head, MRI brain showed no acute findings. Patient was initially placed on Depakote but this was discontinued in the setting of pancytopenia and neurology does not recommend continuation of antiepileptic at this time. He was evaluated again yesterday I emergency room, blood work showed complete normal CBC. Due to pancytopenia the patient also underwent bone marrow biopsy during recent hospital stay at [facility]. He is referred to Hematology for further evaluation. He denies fever, chills, shortness of breath, difficulty breathing chest pain abdominal pain nausea or vomiting. His weight fluctuates up and down around 6 lb. Past Medical History: Diagnosis Date Arthritis 04/05/2024 Seizures (CMS-HCC) Past Surgical History: Procedure Laterality Date KIDNEY STONE SURGERY 2021 KNEE SURGERY 2022 NOSE SURGERY 2001 Family History Problem Relation Age of Onset Lung disease Mother Cancer Mother Heart disease Father Social History Socioeconomic History Marital status: Single Tobacco Use Smoking status: Former Types: Cigarettes Start date: 01/30/2024 Smokeless tobacco: Former Vaping Use Vaping status: Every Day Substances: THC Substance and Sexual Activity Alcohol use: Not Currently Drug use: Yes Types: Marijuana Sexual activity: Yes Partners: Female Other Topics Concern Caffeine Use No Social Drivers of Health Food Insecurity: No Food Insecurity (04/11/2024) Hunger Screening Food Insecurity - Worry: Never True Food Insecurity - Inability: Never True Transportation Needs: No Transportation Needs (02/27/2024) Received from [facility] - Transportation Lack of Transportation (Medical): No Lack of Transportation (Non-Medical): No Housing Instability: Low Risk (02/27/2024) Received from [facility] Housing Stability Vital Sign Unable to Pay for Housing in the Last Year: No Number of Times Moved in the Last Year: 1 Homeless in the Last Year: No Allergies Allergen Reactions Naproxen Nausea And Vomiting Other Reaction(s): Unknown Medication List Accurate as of April 12, 2024 4:08 PM. If you have any questions, ask your nurse or doctor. Medications Continued This Visit acetaminophen 500 mg tablet Refills: 0 Dose: 1,000 mg Commonly known as: TYLENOL EXTRA STRENGTH celecoxib 200 mg capsule Refills: 0 Dose: 200 mg Commonly known as: CeleBREX cephalexin 500 mg tablet Refills: 0 Dose: 500 mg ferrous sulfate 325 (65 FE) mg tablet Refills: 0 Dose: 325 mg gabapentin 600 mg tablet Refills: 0 Dose: 300 mg Commonly known as: NEURONTIN HYDROcodone-acetaminophen 5-325 mg per tablet Refills: 0 Commonly known as: NORCO ketorolac 10 mg tablet Refills: 0 Dose: 1 tablet Commonly known as: TORADOL methocarbamoL 750 mg tablet Refills: 0 Dose: 750 mg Commonly known as: ROBAXIN nicotine 14 mg/24 hr Refills: 0 Dose: 1 patch Commonly known as: NICODERM CQ NURTEC ODT 75 mg tablet,disintegrating Quantity: 8 tablet Refills: 5 For diagnoses: Migraine without aura and without status migrainosus, not intractable Dose: 1 tablet Signed by: Armando Meek PA-C 1 tablet, oral, As needed, Maximum of 1 dose per 24 hours Generic drug: rimegepant ondansetron 4 mg tablet Refills: 0 Dose: 4 mg Commonly known as: ZOFRAN ondansetron ODT 4 mg disintegrating tablet Refills: 0 Dose: 4 mg Commonly known as: ZOFRAN ODT pantoprazole 20 mg EC tablet Refills: 0 Dose: 40 mg Commonly known as: PROTONIX polyethylene glycol 17 gram packet Refills: 0 Dose: 17 g Commonly known as: GLYCOLAX predniSONE 10 mg tablet Quantity: 19 tablet Refills: 0 For diagnoses: Status migrainosus Signed by: Armando Meek PA-C Take 4 tabs (40 mg) daily for 2 days, then 3 tabs (30 mg) daily for 2 days, then 2 tabs (20 mg) daily for 2 days, then 1 tab daily for 1 day, then Discontinue Commonly known as: DELTASONE tiZANidine 4 mg tablet Refills: 0 Dose: 8 mg Commonly known as: ZANAFLEX topiramate 50 mg tablet Quantity: 60 tablet Refills: 5 For diagnoses: Migraine without aura and without status migrainosus, not intractable, Status migrainosus Signed by: Armando Meek PA-C Take 1 tablet (50 mg) nightly for 2 weeks, then increase to 1 tablet (50 mg) twice daily Commonly known as: TOPAMAX Review of Symptoms: Review of Systems ECO- Symptomatic; fully ambulatory Physical Exam: General: Well appearing, in no acute distress. Vitals: BP 123/78 Pulse 82 Temp 36.7 C (98.1 F) (Oral) Ht 175.3 cm (5' 9.02 ) Wt 98.2 kg (216 lb 6.4 oz) SpO2 99% BMI 31.94 kg/m Body mass index is 31.94 kg/m . Eyes: No icterus, no conjuctival erythema ENT: Pharyngeal mucosa was moist without exudate and inflammation or ulcerations. Tongue was midline and appeared normal.Gums were unremarkable. Lymph nodes: No palpable adenopathy Neck: Supple. There were no masses, tenderness. Trachea was midline. Respiratory: Respirations were non-labored. Lungs were clear to auscultation. There was no dullness to percussion. Cardiac: Regular rate and rhythm, S1 and S2 sounds were normal. There were no rubs or gallops. Abdomen: Soft, non-tender, Nondistended. Bowel sounds audible in all four quadrants. There were no palpable masses. The liver and spleen were not enlarged. Extremities: There was no clubbing, Cyanosis, edema. Skin: There was no obvious rashes, bruising or ecchymosis. Back exam: No palpable tenderness was appreciated. Neurologic: There was no unilateral weakness. Mood and affect: Normal. Recent Imaging: Echo complete W/O contrast Result Date: 04/09/2024 Narrative: Left Ventricle: Left ventricle appears normal in size. Systolic function is normal with an ejection fraction of 55-60%. Normal diastolic function is present. Lateral E' is 14.00 cm/s. Medial E' is 11.10 cm/s. Right Ventricle: Right ventricular size appears normal. The right ventricular basal diameter is 39.0 mm. Systolic function is normal. EEG Result Date: 04/03/2024 Narrative: Images from the original result were not included. [facility] EEG REPORT EEG Service Date: 04/03/24 Date of Report: 04/03/24 History: Ethan Donald is a 33 y.o. male who is undergoing EEG to evaluate for seizure-like events. Centrally active medications: Hydrocodone, prednisone, Nurtec, Topamax. Procedure: This EEG was acquired with electrodes placed according to the [id number] electrode placement system. The EEG was acquired and reviewed using multiple, reformattable montages. A single EKG channel was recorded for cardiac rhythm monitoring. Technical description: Background is composed of 5 V frontal and centrally predominant intermittent beta frequency intermixed with 20-30 V posterior alpha frequency. The posterior dominant rhythm is a 10 Hz alpha frequency, seen symmetrically over the occipital head regions during wakefulness with eyes closed. No epileptiform abnormalities are noted in the form of spikes or sharp waves. No electrographic seizure activity is recorded. No stage II sleep is noted. Hyperventilation was deferred. Photic stimulation elicited bilateral posterior driving responses. EEG diagnosis: This EEG is normal during wakefulness. EEG interpretation: This EEG is normal. The absence of epileptiform abnormalities does not exclude the possibility of intermittent seizures. Tara Bell M.D., Ph.D. [employer] [facility] Background Recent Labs: Recent Results (from the past 2 weeks) Echo complete W/O contrast Collection Time: 04/09/24 10:48 AM Result Value Ref Range LVOT stroke volume 97.22 ml LV Systolic Volume 60.10 mL EF 56 % FS 29 28 - 44 % LV Diastolic Volume 136.00 mL LVIDd 5.60 cm LVIDs 4.00 cm IVS 0.70 0.6 - 1.1 cm PW 0.80 0.6 - 1.1 cm LVOT diameter 2.30 cm TDI 14.00 cm/s MV TDI E' (medial) 11.10 cm/s LA Volume Index 24.8 mL/m2 E/A ratio 1.88 E wave deceleration time 232.00 msec MV Peak E Victorino 104.00 cm/s MV Peak A Victorino 55.30 cm/s LA size 3.60 cm Aortic root 3.10 cm LA volume 54.50 cm3 RV diastolic dimension (basal) 39.0 mm TAPSE 2.41 cm AV peak victorino 133.00 cm/s LVOT peak victorino 1.06 m/s AV VTI 33.50 cm LVOT peak VTI 23.40 cm AV mean gradient 4.00 mmHg AV peak gradient 7.08 mmHg AV valve area 2.90 Valve area - Index 1.3 MV pressure 1/2 time 68.00 ms MV valve area p 1/2 method 3.24 cm2 PV peak gradient 5.11 mmHg LV ESV A2C 56.10 mL LV ESV A4C 50.30 mL LV RWT 2D 28.57 Echo EF Estimated 56 % AV Velocity Ratio 0.70 Left Ventricle Mass 152.296686569553397 g Interventricular Septum Diastolic Thickness by 2D 7 cm Est. RA pressure 3 mmHg CBC auto differential Collection Time: 04/11/24 9:56 AM Result Value Ref Range White Blood Cells 6.6 4.0 - 11.0 X10E9/L RBC count 4.48 4.10 - 5.70 X10E12/L Hemoglobin 14.0 13.0 - 17.0 g/dL Hematocrit 40.8 39 - 49 % MCV 91 80 - 100 fL MCH 31.2 27 - 34 pg MCHC 34.2 32 - 36 g/dL RDW 14.5 11.5 - 15.0 % Platelets 245 150 - 450 X10E9/L MPV 7.3 7 - 12 fL % neutrophils 54.6 % % lymphocytes 35.0 % % monocytes 7.3 % % eosinophils 2.3 % % Basophils 0.8 % Neutrophils Absolute (A) 3.6 1.5 - 6.6 X10E9/L Lymphocytes Absolute 2.3 1.0 - 3.5 X10E9/L Monocytes Absolute 0.5 0 - 0.9 X10E9/L Eosinophils Absolute 0.2 0.0 - 0.4 X10E9/L Basophils Absolute 0.1 0.0 - 0.2 X10E9/L Basic Metabolic Panel Collection Time: 04/11/24 9:56 AM Result Value Ref Range Sodium 137 134 - 146 mmol/L Potassium, Bld 3.7 3.5 - 5.0 mmol/L Chloride 107 98 - 109 mmol/L CO2 23 22 - 32 mmol/L Anion gap 7 5 - 15 mmol/L BUN 18 5 - 23 mg/dL Creatinine 1.20 0.70 - 1.20 mg/dL Glucose 95 65 - 99 mg/dL Calcium 9.2 8.5 - 10.5 mg/dL eGFR (CKD-EPI)non-race dependent 83 >59 ml/min/1.73sq.m Troponin I, High Sensitivity Collection Time: 04/11/24 9:56 AM Result Value Ref Range Troponin I, High Sensitivity 3 <21 ng/L Magnesium Collection Time: 04/11/24 9:56 AM Result Value Ref Range Magnesium 2.1 1.8 - 2.6 mg/dL Troponin I, High Sensitivity 1 Hour Collection Time: 04/11/24 11:05 AM Result Value Ref Range 1 Hour Trop I, High Sensitivity 2 <21 ng/L Diagnosis Problem list: Problem List Items Addressed This Visit Immune and Lymphatic Pancytopenia (CMS-HCC) Impression: Recurrent seizure disorder of unknown etiology Migraines Plan: I reviewed the patient's recent blood work in emergency room, his CBC is completely normal, no cytopenia. BMP showed normal kidney function and electrolytes. Previously patient underwent a bone marrow biopsy 03/2024: INAL DIAGNOSIS: Bone marrow, aspirate, clot and core biopsy: CBC-pancytopenia with neutropenia. Normocellular marrow with trilineage hematopoiesis and nonnecrotizing granulomatous inflammation. Iron stain-decreased iron stores. Flow cytometry-no abnormal immunophenotype. Addendum: Cytogenetics: 46, XY Myeloid mutation panel by NGS: No tier 1 variants identified. See separate reference report regarding tier 2 variants of unknown clinical significance in hematologic malignancies. These ancillary results do not change the diagnosis but help to exclude a possible molecular abnormality. The patient will follow-up with neurology for further neurological workup. Return to Hematology as needed. Thank you. Ciera Torres MD Please note that portions of this note were generated using voice recognition [employer]ia dictation software. Although every effort was made to ensure the accuracy of this automated software development engineer, some errors in software development engineer may have occurred. CC: Patient Care Team: Latricia Garcia MD as PCP - General PCP:LATRICIA GARCIA Referring MD: Armando Meek PA* documented in this encounter [email or web address] 04-08-2024 History of Present illness Narrative Ethan Donald Date of visit: 04/08/2024 Date of : 1990 Age: 33 y.o. Patient Active Problem List Diagnosis New onset seizure (CMS-HCC) Pancytopenia (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-HCC) No data recorded No data recorded No [...] Needs: No Transportation Needs (02/27/2024) Received from [facility] - Transportation Lack of Transportation (Medical): No Lack of Transportation (Non-Medical): No Physical Activity: Not on file Stress: Not on file Social Connections: Not on file Interpersonal Safety: Not on file Housing Instability: Low Risk (02/27/2024) Received from [facility] Housing Stability Vital Sign Unable to [...] discontinued medications. IMPRESSIONS/PLAN 1. Recurrent syncope - [facility] - [place], [place] - Echo complete W/O contrast; Future - Holter monitor 24-48 hour; Future 2. Seizure ([facility]) Episodes described sound like two [...] GARCIA MD Referring Physician: Armando Meek PA-C [address] [place] [address] documented in this encounter [facility] 04-05-2024 Miscellaneous Notes Called patient to remind them to bring their most current copy of their medication list with them to their appt. Patient verbalizes understanding. documented in this encounter [facility] 04-05-2024 Telephone encounter Note Called patient to remind them to bring their most current copy of their medication list with them to their appt. Patient verbalizes understanding. [facility] 04-01-2024 Miscellaneous Notes Images from the original note were not included. Patient called to state the referral to the Praveen Torres MD in [place]. Patient states he has called several times and left message with a call back. When looking up the doctors information she appears to be at [facility]. Patient is looking for a doctor in [place]. Please advise Ethan Contact Information [phone] ( Provider located at both [facility] and [facility] in [place]. Patient has been notified of below message and voiced understanding. Patient left a message for the [place] location and has not yet heard a response. Half Section Ironer informed patient if there is still no response by end of week to give the clinic a call back. documented in this encounter [facility] 04-01-2024 Telephone encounter Note Images from the original note were not included. Patient called to state the referral to the Praveen Torres MD in [place]. Patient states he has called several times and left message with a call back. When looking up the doctors information she appears to be at [facility]. Patient is looking for a doctor in [place]. Please advise Ethan Contact Information [phone] ( [facility] 04-01-2024 Telephone encounter Note Provider located at both [facility] and [facility] in [place]. [facility] 04-01-2024 Telephone encounter Note Patient has been notified of below message and voiced understanding. Patient left a message for the [place] location and has not yet heard a response. Half Section Ironer informed patient if there is still no response by end of week to give the clinic a call back. [facility] 03-27-2024 Miscellaneous Notes Patient stated that Armando Meek submitted a prior authorization on 03/26/2024 for the [facility]. However, Federico stated that it did not [...] day supply preferred: unknown Pharmacy Name: [facility] If already on preferred pharmacy list - name only If new pharmacy - specify address & phone number Request was made by: PA is needed for Nurtec. Medication listed is incorrect. RN has submitted a PA on [facility]. Herrera: [id number] Patient called stating that he has been experiencing a migraine for about a month since his seizure. Patient is requesting another medication other than Nurtec due to pharmacy not prescribing medication due to a PA. Patient states that if he does not get a medication prescribed by this afternoon that he will be going to [place] ED for a migraine cocktail. Please Advise. Pharmacy: [facility] [address] [place], [place] - [facility] Contact: Patient was informed a PA was [...] over the weekend and was taken to [facility]. He was provided with a medication that aborted his migraine. Patient is unsure the name of if but will look at his records and notify clinic. Patient stated he has a slight headache still but it is much better than previously. He would still like to start Prednisone but will need script sent to [facility] in [place] instead. [facility]; thank you. Continue with Topiramate. Will resend Prednisone to desired Pharmacy location. - [facility] documented in this encounter [facility] 03-27-2024 Telephone encounter Note Patient stated that Armando Meek submitted a prior authorization on 03/[facility]/2024 [facility] However, Federico stated that it did not [...] day supply preferred: unknown Pharmacy Name: [facility] If already on preferred pharmacy list - name only If new pharmacy - specify address & phone number Request was made by: [facility] 03-27-2024 Telephone encounter Note PA is needed for Nurtec. Medication listed is incorrect. RN has submitted a PA on CM. Herrera: [facility] 03-27-2024 Telephone encounter Note Patient called stating that he has been experiencing a migraine for about a month since his seizure. Patient is requesting another medication other than Nurtec due to pharmacy not prescribing medication due to a PA. Patient states that if he does not get a medication prescribed by this afternoon that he will be going to [place] ED for a migraine cocktail. Please Advise. Pharmacy: [facility] [id number] - [place], [place] - Best Contact: [facility] 03-27-2024 Telephone encounter Note Patient was informed a PA was submitted, however, the clinic is awaiting response from insurance. The patient is wanting to know if there is any other medication he can take in the meantime until a response is received for the Nurtec. [facility] 03-27-2024 Telephone encounter Note Continue with the prescribed Topiramate and I will send in a course of Prednisone in the meantime while the PA for Nurtec ODT is being completed. - [facility] 03-27-2024 Telephone encounter Note Nurtec was [...] over the weekend and was taken to [facility]. He was provided with a medication that aborted his migraine. Patient is unsure the name of but will look at his records and notify clinic. Patient stated he has a slight headache still but it is much better than previously. He would still like to start Prednisone but will need script sent to [facility] in [place] instead. [facility] 03-27-2024 Telephone encounter Note Appeal [facility] as stated; thank you. Continue with Topiramate. Will resend Prednisone to desired Pharmacy location. - [facility] 03-26-2024 History of Present illness [facility]/25/2024 3:01 PM Patient info: Ethan Donald is a 33 y.o. male Account No.: [id number] Acct: : 1990 PCP: LATRICIA GARCIA MD [...] checking in at a Neurology office in [facility]), he suddenly lost consciousness, so EMS arrived and took him to [facility] for further evaluation. [facility] from 02/26/24-03/02/24. [facility] inpatient Neurology service was consulted. 24 hr. [...] approximately 12 yrs ago (-) hx of SKIN CARE THERAPIST infection: (-) hx of stroke/cerebrovascular malformation: (-) [...] PA-C 03/26/24 1209 documented in this encounter [email or web address] 03-25-2024 Miscellaneous Notes Please ask the following questions to the new patient that you are schedulin. IS THIS DUE TO AN ACCIDENT? -NO 2. IS THIS WORKER'S COMP? PLEASE VERIFY IF THIS IS WORKERS COMP AND DOCUMENT (We do not accept any new workers comp cases) - NO 3. WHAT INSURANCE? - MEDICAID WILL BE GETTING [employer] 4. HAVE YOU EVER BEEN SEEN BY A NEUROLOGIST BEFORE? IF YES, WHO AND WHEN? IS THIS A SECOND OPINION? - NO 5. ANY CHANCE OF NOW OR BEFORE YOUR APPOINTMENT? N/A - 6. OFFERED JOSE FOR SOONER APPOINTMENT? -YES 7. PATIENT IS SCHEDULED ON/WITH: Jorge L MEEK 8. WHO CALLED TO SCHEDULE APPOINTMENT? PATIENT - [email or web address]-25[facility] Telephone encounter Note Please ask the following questions to the new patient that you are schedulin. IS THIS DUE TO AN ACCIDENT? -NO 2. IS THIS WORKER'S COMP? PLEASE VERIFY IF THIS IS WORKERS COMP AND DOCUMENT (We do not accept any new workers comp cases) - NO 3. WHAT INSURANCE? - MEDICAID WILL BE GETTING [employer] 4. HAVE YOU EVER BEEN SEEN BY A NEUROLOGIST BEFORE? IF YES, WHO AND WHEN? IS THIS A SECOND OPINION? - NO 5. ANY CHANCE OF NOW OR BEFORE YOUR APPOINTMENT? N/A - 6. OFFERED JOSE FOR SOONER APPOINTMENT? -YES 7. PATIENT IS SCHEDULED ON/WITH: Jorge L MEEK 8. WHO CALLED TO SCHEDULE APPOINTMENT? [facility] 03-02-2024 History of Present illness Narrative [...] per family. Pt supplied with walker from [facility]. TRANSFER - OUT REPORT: Verbal report given [...] fibromyalgia, tobacco use disorder who presented to [facility] on 02/27/2024 for evaluation of loss [...] Mendoza. 0904 Samples collected and given to tip inserter for further review. 0906 Procedure completed; patient tolerated well. Post scan obtained. 0908 Bacitracin oint, band aid to site; no bleeding noted. 0910 Patient on bed; comfort ensured. 0917 patient taken to 4A via bed/transporter with family at bedside. Pt alert and oriented x3; follows commands. Skin pink, warm, and dry. Respirations easy, regular, and nonlabored. Images from the original note were not included. Hospitalist Progress Note Internal Medicine Resident Patient: Ethan Donald 33 y.o. male Unit/Bed: -03/003-A Admit Date: 02/27/2024 ASSESSMENT AND PLAN Active [...] Multiple personality disorder, Fibromyalgia who presented to [facility] on 02/26 with chief complaint of loss of consciousness. Directly admitted from [facility]. Reported on 02/22 having seizure while [...] Service - 02/29/2024 Neurology Progress Note Date:02/29/2024 Room:[address] [place] [address] Patient Name:Ethan Donald Date of :1990 Age:33 y.o. CC: No chief complaint on file. Subjective Ethan Donald is a 33 y.o. male with a history of Multiple Personality Disorder, Fibromyalgia and Marijuana and Tobacco dependence who presented to [facility] after passing out at his psychiatrist office; transferred to [facility] on 02/26/2024 for neurology evaluation. Patient [...] time. Motor: Motor strength is normal. Coordination: Vgjway-Hrok-Irboso Test and Heel to Solano Test normal. [...] Patient: Ethan Donald 33 y.o. male Unit/Bed: [address] [place] [address] Admit Date: 02/27/2024 ASSESSMENT AND PLAN Active [...] Multiple personality disorder, Fibromyalgia who presented to [facility] on 02/26 with chief complaint of loss of consciousness. Directly admitted from [facility]. Reported on 02/22 having seizure while [...] Service - 02/28/2024 Neurology Progress Note Date:02/28/2024 Room:[address] [place] [address] Patient Name:Ethan Donald Date of :1990 Age:33 y.o. CC: No chief complaint on file. Subjective Ethan Donald is a 33 y.o. male with a history of Multiple Personality Disorder, Fibromyalgia and Marijuana and Tobacco dependence who presented to [facility] after passing out at his psychiatrist office; transferred to [facility] on 02/26/2024 for neurology evaluation. Patient [...] of Arthritis, Fibromyalgia, Multiple personalities (HCC), and [place]-Schlatter's disease. Social History: reports that he has [...] time. Motor: Motor strength is normal. Coordination: Tgivpe-Fdro-Npxoln Test and Heel to Solano Test normal. [...] plan. Spiritual Health History and Assessment/Progress Note [facility] (P) Advance Care Planning, , , Name: Ethan Donald Age: 33 y.o. Sex: male Language: Tajik Shinto: None New onset seizure (HCC) Date: 02/28/2024 Total Time Calculated: (P) 35 min Spiritual Assessment continued in [facility] 4A Referral/Consult From: (P) [...] of Hope, please send discharge medication to [facility] OP Pharmacy. Thank you! Misti Tineo [facility] - Prescription Assistance ([phone]) 02/27/2024,3:31 PM Assessment: Ethan is a 33 year old male resting in his bed alone, ca.lm. tired and awake. This visit is in response to a Spiritual Consult to discuss ACP document.Please see ACP note for detail [facility] Neurodiagnostic Wedding Cake Designer Worksheet EEG Date: 02/27/2024 Name: Ethan Donald : 1990 Age: 33 y.o. Sex: male CSN: [id number] Room/Location: [facility] Ordering Provider: Brian Gunter EEG Number: [id number] Time In: 08 Time Out: 0900 02/27 Total Treatment Time: [...] Deprived: Yes Seizures Observed: No Mentality: alert Body Piercer: Bahman Robledo 02/27/2024 [facility], Dr Reyes. 33 yo new onset seizure, headache and syncopal episode. Wed. he had a seizure in his sleep, bit his tongue. Followed up with PCP and [facility]. At PCP appt today had a pain in head, passed out, came to ED. CT head without contrast nothing acute. No CT with contrast done because wasn't sure if he had contrast at [facility]. No ability to do MRI after 4PM. Questioning temporal arteritis , 60 mg solumedrol given, also given zofran . WBC 4.1, sed rate 17, CRP 81.9. Vials afebrile, 138/84, 92, 18, 97% on room air. documented in this encounter [facility] 03-02-2024 Hospital Discharge instructions Maureen Hampton DO - 03/02/2024 11:54 AM EDT Follow up with your family doctor in the next week. Continue to wear mask for a precaution when around family and friends. Follow up with Neurology, continue seizure precautions. Do not drive motor vehicles until you follow up and see neurology. Avoid swimming pools documented in this encounter 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 -met Mcfp Goals Time Frame for Mcfp Goals : 6 weeks Mcfp Goal 1: Patient to be independent and compliant with HEP. -met Mcfp Goal 2: Patient to have improved R knee AROM 0-120* with no increase in pain for improved mobility. -met (05/31/23 R knee AROM 0-130*) Mcfp Goal 3: Patient to have improved R LE strength >/=4/5 grossly all major joints and planes for improved knee stability with gait. Floor Mechanic Goal 4: Pt to report ability to walk community distances with no AD and no gait deviations or increase in pain to return to PLOF. 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 -met Floor Mechanic Goals Time Frame for Floor Mechanic Goals : 6 weeks Floor Mechanic Goal 1: Patient to be independent and compliant with HEP. -met Floor Mechanic Goal 2: Patient to have improved R knee AROM 0-120* with no increase in pain for improved mobility. -met (05/31/23 R knee AROM 0-130*) Mcfp Goal 3: Patient to have improved R LE strength >/=4/5 grossly all major joints and planes for improved knee stability with gait. Floor Mechanic Goal 4: Pt to report ability to walk community distances with no AD and no gait deviations or increase in pain to return to PLOF. -progressing Minutes Tracking: Time In: 1515 Time Out: 1558 Minutes: 43 Timed Code Treatment Minutes: 41 Minutes Manjit Thorpe Date: 06/12/2023 documented in this encounter [facility] 07-21-2022 Hospital Discharge instructions Patient [...] include: ?Spinach. ?Rhubarb. ?Beets. ?Potato chips and welsh fries. ?Nuts. If you regularly take a diuretic medicine, make sure to eat at least 1 2 fruits or vegetables high in potassium each day. These include: ?Avocado. ?Banana. ?[place], prune, carrot, or tomato juice. ?Baked potato. [...] Casseroles. Pizza. Lasagna. Frozen meals. Potato chips. Luxembourgish fries. Summary You can reduce your risk [...] 08/12/2011 Document Revised: 08/07/2019 Document Reviewed: 03/28/2017 [employer] Patient Education 2020 [employer]. Follow Up Care 07/20/2022 16:11:07 With:Handy WILEY, DANA Llamas, URO Address: When: Unknown [facility] 07-13-2022 Hospital Discharge instructions Patient Education 07/13/2022 [...] include: ?Spinach. ?Rhubarb. ?Beets. ?Potato chips and welsh fries. ?Nuts. If you regularly take a diuretic medicine, make sure to eat at least 1 2 fruits or vegetables high in potassium each day. These include: ?Avocado. ?Banana. ?[place], prune, carrot, or tomato juice. ?Baked potato. [...] Casseroles. Pizza. Lasagna. Frozen meals. Potato chips. Luxembourgish fries. Summary You can reduce your risk [...] 08/12/2011 Document Revised: 08/07/2019 Document Reviewed: 03/28/2017 [employer] Patient Education 2020 [employer]. Follow Up Care 05/23/2022 10:22:28 With:Handy WILEY, Shirley Menchaca, URL, URO Address: When: Unknown [facility] 05-26-2022 Note [id number]:[id number] [facility] Evaluation + Plan note Future Appointments Appointment Date:07/13/2022 09:00:00 AM Scheduled Provider:Shirley Murrell MD Location:[facility] Appointment Type:URO Office Visit [facility] Evaluation note Diagnosis New onset seizure (HCC)- Primary Other convulsions Pancytopenia (HCC) Other pancytopenia Hip pain, unspecified laterality Pancytopenia (HCC) Other pancytopenia documented in this encounter [facility] note* Diagnosis Seizure (CMS-HCC)- Primary Other convulsions Migraine without aura and without status migrainosus, not intractable Status migrainosus Variants of migraine, not elsewhere classified, without mention of intractable migraine without mention of status migrainosus Recurrent syncope Pancytopenia (CMS-HCC) Functional tremor [facility] Diagnosis Status migrainosus- Primary Variants of migraine, not elsewhere classified, without mention of intractable migraine without mention of status migrainosus [facility]* Diagnosis Recurrent syncope- Primary Seizure (CMS-HCC) Other convulsions [facility]* Diagnosis Pancytopenia (CMS-HCC) [facility] Narrative No data available for this section [facility] No data available for this section [facility]ructionsNot on filedocumented in this encounter [facility] [...] note No data available for this section [facility] Narrative* Consultation (Routine) - Pending Review Specialty Diagnoses / Procedures Referred By Genoveva bowers Referred To Contact Hematology Diagnoses Pancytopenia ([facility]-HCC) Armando Meek PA-C [address] [place] [address] Phone: tel: fax: Ciera Torres MD [facility] [place] [address] Phone: tel: fax: Referral ID Status Reason Start Date Expiration Date Visits Requested Visits Authorized [id number] Pending Review Specialty Services Required 4 03/26/2025 1 1 [facility] Summary Purpose Family History No Family History Records FoundNo Family History Records FoundNo Family History Records FoundNo Family History Records FoundNo Family History Records Found Advance Directives No Advanced Directives Records FoundDocuments on File Type Date Recorded 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 Expl 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 ACP-Advance Directive 02/29/2024 2:09 PM Date Activated Date Inactivated Comments 02/27/2024 12:32 AM Healthcare Agents on File Name Relationship Healthcare Agent Relationshi p Communication Daisy Araujo Girlfriend Primary Decision Maker Hiren Donald Parent Secondary Decision Maker Additional Source Comments Patient Care team informatio n (unrecognized section and content) School 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 Relationship Specialty Start Date End Date Latricia Garcia MD [address] [place] [address] PCP - General Family Medicine 02/16/23 School Teacher Relationship Specialty Start Date End Date Latricia Garcia MD [address] [place] [address] PCP - General Family Medicine 02/16/23 School Teacher Relationship Specialty Start Date End Date Latricia Garcia MD [address] [place] [address] PCP - General Family Medicine 02/16/23 School Teacher Relationship Specialty Start Date End Date Latricia Garcia MD PCP - General 09/15/17 School Teacher Relationship Specialty Start Date End Date Latricia Garcia MD PCP - General 09/15/17 School Teacher Relationship Specialty Start Date End Date Latricia Garcia MD PCP - General 09/15/17 School Teacher Relationship Specialty Start Date End Date Latricia Garcia MD PCP - General 09/15/17 School Teacher Relationship Specialty Start Date End Date Latricia Garcia MD PCP - General 09/15/17 School Teacher Relationship Specialty Start Date End Date Latricia Garcia MD PCP - General 09/15/17 School Teacher Relationship Specialty Start Date End Date Latricia Garcia MD PCP - General 09/15/17 (unrecognized sect ion and content) No Status Records FoundNo Status Records FoundNo Status Records FoundNo Status Records FoundNo Status Records Found INFORMATION SOURCE (unrecogn ized section and content) DATE CREATED AUTHOR 07/31/2022 [facility] DATE CREATED AUTHOR AUTHOR'S ORGANIZ ATION 09/13/2022 [facility] DATE CREATED AUTHOR AUTHOR'S ORGANIZ ATION 02/28/2024 [facility] DATE CREATED AUTHOR AUTHOR'S ORGANIZ ATION 03/23/2024 [facility] DATE CREATED AUTHOR AUTHOR'S ORGANIZ ATION 04/22/2024 [facility] Reason for Visit (unrecogniz ed section and content) Specialty Diagnoses / Procedures Referred By Genoveva bowers Referred To Contact Diagnoses New onset seizure (HCC) new onset seizure [facility] [address] [place] [address] [facility] [address] [place] [address] Referral ID Status Reason Start Date Expiration Date Visits Re quested Visits Authorized [id number] 1 1 Reason Onset Date Comments REFERRAL 03/25/2024 Reason Comments Seizures Patient is here toda y as a new patient for dx of Seizures. Patient states that he had a seizure about a month ago and has been having episodes of passing out ever since. Specialty Diagnoses / Procedures Referred By Genoveva bowers Referred To Contact Neurology Diagnoses Seizure (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 MILAN RICHARD, WAS IN ER , ALSO IP [facility] SCHED W/ PT Specialty Diagnoses / Procedures Referred By Geonveva bowers Referred To Contact Cardiology Diagnoses Recurrent syncope Armando Meek PA-C [address] [place] [address] Phone: tel: fax: [facility] [address] [place] [address] Phone: tel: fax: Referral ID Status Reason Start Date Expiration Date Visits Requested Visits Authorized [id number] Pending Review Specialty Services Required 4 03/26/2025 [...] Humphreys RN) 075 (Given - Provider: Daphne Alonzo RN)2100 (Due) [...] Landis RN) 0930 (Given - Provider: Joanna dAame RN)161 (Given - Provider: Joanna Adame RN)2215 [...] Adame RN)2006 (Given - Provider: Rebecca Humphreys, MARQUISE) 0210 [...] CrCl less than 30ml/min, On hold since [facility] 02/29/2024 at 1438 until manually unheld [...] Rebecca Humphreys RN)1116 (Given - Provider: Daphne Alonzo RN) phenol 1.4 % mouth spray Mouth/Throat, [...] BE BASED ON THE PRIMARY CLINICAL RECORDS. [employer] [facility]. provides no warranty or guarantee of the accuracy or completeness of information in this document.
--- NOTE | 2024-05-03 18:35 | ECG_ITS ---
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
--- NOTE | 2024-05-03 18:40 | ED_ITS ---
HPI HPI - General Adult General Chief complaint: Headache Stated complaint: migraine, passing out randomly Time Seen by Provider: 05/03/24 17:58 Source: patient Mode of arrival: walk-in Limitations: no limitations History of Present Illness HPI narrative: Patient is a 33-year-old male who is presenting to the ER today with chief complaint of acute on chronic headache, nausea vomiting. Patient had no trauma. Patient said he was waiting in the waiting room lengthy amount of time, patient's only been here for 65 to 70 minutes. Patient said he is waiting and sitting in the chair, patient said he is head 5 syncopal episodes while waiting in the waiting room. Patient states he has had chronic headaches since the middle of January. Patient's had multiple MRIs, CAT scans. Patient now has a neurologist and Dr. Meek that helps manage his care from the [facility]. Patient states that he had a seizure while he was sleeping, it was noted by brother that he was shaking when he was sleeping. Patient shows me a old laceration to the left lateral aspect of his tongue, stating that he bit his tongue when he was sleeping. No blood noted in his mouth or around his mouth. Patient is wearing a hat and sunglasses. Patient smells of significant marijuana use. Patient admits to smoking marijuana daily. Patient says he does not have cyclic nausea vomiting history. Patient states that he has had a bottle of water since 2:00, he did take his propranolol, Zofran, and Excedrin today to help with his had a migraine. Patient states that headache pressure to the front of his forehead is 7/10, patient states the pain above his neck is 9/10. He has no meningeal signs or symptoms. Patient was brought to the ER by a friend. All systems are negative except as noted/marked. All systems reviewed and otherwise negative. Nurses note and vital signs reviewed and patient is not hypoxic. Patient smells of marijuana, does not smell of alcohol. Alert and orient x 3, GCS 15. Patient is wearing a winter stocking cap and sunglasses. General: The patient appears well and in no apparent distress. Patient is resting comfortably on cart. Patient is not toxic, lethargic, or listless Skin: Warm, dry, no pallor noted. There is no rash noted. No petechiae, purpura. Head: Normocephalic, atraumatic, patient has mild to moderate midline and paracervical tenderness to palpation. Full range of motion of cervical spine with no significant difficulty or pain. Patient has no meningeal signs or symptoms. Patient is looking to the left and right with no grimace noted to his face, no nuchal rigidity. Eye: Normal conjunctiva, no drainage, EOMI. PERRL Ears, Nose, Mouth, and Throat: oral mucosa is moist. Nares patent. Mouth without vesicles. Cardiovascular: Regular Rate and Rhythm, no murmur, gallop, rub Respiratory: Patient is in no distress, no accessory muscle use, lungs are clear to auscultation, no wheezing, rales or rhonchi Back: non-tender, no CVA tenderness bilaterally to percussion. No CT LS midline pain GI: Soft, no tenderness to palpation, no masses appreciated. No rebound, guarding, or rigidity noted. No distention Musculoskeletal: Patient has full range of motion of all of the extremities, no motor, sensory, or focal neurological deficits Neurological: A&O x4, normal speech Psychiatric: Cooperative Related Data Home Medications ?Medication ?Instructions ?Recorded ?Confirmed ferrous sulfate 325 mg (65 mg 325 mg PO DAILY 03/07/24 04/10/24 iron) tablet (FeroSul) lamotrigine 25 mg tablet mg 04/01/24 rizatriptan 10 mg tablet mg 04/01/24 topiramate 50 mg tablet mg 04/01/24 hydrocodone 5 mg-acetaminophen 325 tab 04/10/24 mg tablet ondansetron 4 mg disintegrating mg 04/10/24 tablet prednisone 10 mg tablet mg 04/10/24 Allergies Allergy/AdvReac Type Severity Reaction Status Date / Time naproxen Allergy Unknown Abdominal Verified 04/14/24 19:15 Pain Opioid HPI Opioid Management Most Recent Opioid Data: Last Pain Scale 9 05/03/24 18:50 05/03/24 Last MAR Pain Assessment 05/03/24 18:50 Ur Phencyclidine Scrn Negative (NEGATIVE) 04/10/24 01:35 03/31 05/24 [facility] Social History Smoking status: Current every day smoker Little interest or pleasure in doing things: not at all Feeling down, depressed, or hopeless: not at all Exam Constitutional Vital Signs, click to edit/add: Last Vital Signs Temp 98 F 05/03/24 17:17 Pulse 71 05/03/24 17:17 Resp 18 05/03/24 17:17 BP 122/76 05/03/24 17:17 Pulse Ox 97 05/03/24 17:17 O2 Del Method Room Air 05/03/24 17:17 Course Vital Signs Vital signs: Vital Signs Temperature 98 F 05/03/24 17:17 Pulse Rate 71 05/03/24 17:17 Respiratory Rate 18 05/03/24 17:17 Blood Pressure 122/76 05/03/24 17:17 Pulse Oximetry 97 05/03/24 17:17 Oxygen Delivery Method Room Air 05/03/24 17:17 Temperature 98 F 05/03/24 17:17 Pulse Rate 71 05/03/24 17:17 Respiratory Rate 18 05/03/24 17:17 Blood Pressure 122/76 05/03/24 17:17 Pulse Oximetry 97 05/03/24 17:17 Oxygen Delivery Method Room Air 05/03/24 17:17 Medical Decision Making MDM Narrative Medical decision making narrative: Patient says that he had 5 near syncopal/syncopal episodes in the waiting room, it was noted by others waiting in the waiting room and registration staff the patient never fell out of his chair, there is no injuries or anybody falling or passing out in the waiting room that they are aware of. I discussed this with Daxa from registration. Patient has EKG, lab work. Patient was given IV fluids, and IV medications as well. 1899 patient will be reassessed after lab work, EKG, IV medications have been finished. Patient is having acute on chronic headache, nausea and vomiting. In reviewing patient's chart from April [address] Alicea, patient has done well with IV fluids, Compazine, Toradol in the past and states that Benadryl magnesium help as well. Discharge Plan Discharge Patient Disposition: Still a Patient
[2024-05-03] MEDS: 0.9 % SODIUM CHLORIDE 1,000 ML 1000 ML IV (18:47)
[2024-05-03] MEDS: KETOROLAC TROMETHAMINE 30 MG/ML VIAL 15 MG IVP (18:50)
[2024-05-03] MEDS: DIPHENHYDRAMINE HCL 50 MG/ML VIAL 25 MG IV (18:50)
[2024-05-03] MEDS: PROCHLORPERAZINE 10 MG/2 ML VIAL IV (18:51)
[2024-05-03] MEDS: MAGNESIUM SULFATE IN WATER 2 GM/50 ML PREMIX 3.3 GM IV (18:52)
[2024-05-03 19:01] LABS: Basophils Percent Auto 0.6 % (0.2-2.0); Eosinophils Absolute Auto 0.1 10^3/uL (0.0-0.7); Hematocrit 38.7 % (42.0-54.0); Hemoglobin 13.8 g/dL (14.0-18.0); Immature Granulocytes Abs Auto 0.01 10^3/uL (0.00-0.03); Immature Granulocytes Pct Auto 0.1 % (0.0-0.5); Lymphocytes Percent Auto 29.7 % (20.5-60.0); Mean Corpuscular HGB Conc 35.7 g/dL (29.9-35.2); Mean Corpuscular Hemoglobin 31.7 pg (25.9-34.0); Mean Platelet Volume 9.9 fL (9.5-13.5); Monocytes Absolute Auto 0.6 10^3/uL (0.3-0.8); Monocytes Percent Auto 9.6 % (1.7-12.0); Platelet Count 220 10^3/uL (150-450); Red Blood Count 4.35 10^6/uL (4.70-6.10); Red Cell Distribution Width 12.5 % (11.0-15.0); White Blood Count 6.7 10^3/uL (4.0-11.0)
--- NOTE | 2024-05-03 19:04 | ED_ITS ---
HPI HPI - General Adult General Chief complaint: Headache Stated complaint: migraine, passing out randomly Time Seen by Provider: 05/03/24 17:58 Source: patient Mode of arrival: walk-in Limitations: no limitations Related Data Home Medications ?Medication ?Instructions ?Recorded ?Confirmed ferrous sulfate 325 mg (65 mg 325 mg PO DAILY 03/07/24 04/10/24 iron) tablet (FeroSul) lamotrigine 25 mg tablet mg 04/01/24 rizatriptan 10 mg tablet mg 04/01/24 topiramate 50 mg tablet mg 04/01/24 hydrocodone 5 mg-acetaminophen 325 tab 04/10/24 mg tablet ondansetron 4 mg disintegrating mg 04/10/24 tablet prednisone 10 mg tablet mg 04/10/24 Allergies Allergy/AdvReac Type Severity Reaction Status Date / Time naproxen Allergy Unknown Abdominal Verified 04/14/24 19:15 Pain Opioid HPI Opioid Management Most Recent Opioid Data: Last Pain Scale 9 05/03/24 18:50 05/03/24 Last JUN Pain Assessment 05/03/24 18:50 Ur Phencyclidine Scrn Negative (NEGATIVE) 04/10/24 01:35 03/31 05/24 PFSH PFSH Social History Smoking status: Current every day smoker Little interest or pleasure in doing things: not at all Feeling down, depressed, or hopeless: not at all Exam Constitutional Vital Signs, click to edit/add: Last Vital Signs Temp 98 F 05/03/24 17:17 Pulse 71 05/03/24 17:17 Resp 18 05/03/24 17:17 BP 122/76 05/03/24 17:17 Pulse Ox 97 05/03/24 17:17 O2 Del Method Room Air 05/03/24 17:17 Course Vital Signs Vital signs: Vital Signs Temperature 98 F 05/03/24 17:17 Pulse Rate 71 05/03/24 17:17 Respiratory Rate 18 05/03/24 17:17 Blood Pressure 122/76 05/03/24 17:17 Pulse Oximetry 97 05/03/24 17:17 Oxygen Delivery Method Room Air 05/03/24 17:17 Temperature 98 F 05/03/24 17:17 Pulse Rate 71 05/03/24 17:17 Respiratory Rate 18 05/03/24 17:17 Blood Pressure 122/76 05/03/24 17:17 Pulse Oximetry 97 05/03/24 17:17 Oxygen Delivery Method Room Air 05/03/24 17:17 Medical Decision Making ECG Data Attestation: I personally reviewed and interpreted this ECG as follows: (EKG interpretation. Normal sinus rhythm at 56 beats a minute. Normal axis deviation. No acute ST elevation, no acute ectopy. QTc of 407) Discharge Plan Discharge Patient Disposition: Still a Patient
[2024-05-03 19:17] LABS: Anion Gap 11.6; BUN Creatinine Ratio 10.2; Calcium 9.3 mg/dL (8.5-10.1); Carbon Dioxide 29.8 mmol/L (21.0-32.0); Chloride 103 mmol/L (98-107); Estimated GFR (African America >60 (>=60 mL/min/1.73m^2); Estimated GFR (Non-African Ame >60 (>=60 mL/min/1.73m^2); Glucose 98 mg/dL (74-106); Potassium 3.4 mmol/L (3.5-5.1); Sodium 141 mmol/L (136-145); Troponin I High Sensitivity 6.3 pg/mL (4.0-76.1)
[2024-05-03] MEDS: METHYLPREDNISOLONE SOD SUCC PF 125 MG/2 ML VIAL IVP (19:52)
--- NOTE | 2024-05-03 20:34 | ED.GENADUL1 ---
HPI HPI - General Adult General Chief complaint: Headache Stated complaint: migraine, passing out randomly Time Seen by Provider: 05/03/24 17:58 Source: patient Mode of arrival: walk-in Limitations: no limitations History of Present Illness HPI narrative: 33-year-old male presented to the emergency department and was initially seen by Dr. Lynch and signed out to me after discussing the case with him thoroughly. Please see his full history and physical exam. Related Data Home Medications ?Medication ?Instructions ?Recorded ?Confirmed ferrous sulfate 325 mg (65 mg 325 mg PO DAILY 03/07/24 04/10/24 iron) tablet (FeroSul) lamotrigine 25 mg tablet mg 04/01/24 rizatriptan 10 mg tablet mg 04/01/24 topiramate 50 mg tablet mg 04/01/24 hydrocodone 5 mg-acetaminophen 325 tab 04/10/24 mg tablet ondansetron 4 mg disintegrating mg 04/10/24 tablet prednisone 10 mg tablet mg 04/10/24 Allergies Allergy/AdvReac Type Severity Reaction Status Date / Time naproxen Allergy Unknown Abdominal Verified 04/14/24 19:15 Pain Opioid HPI Opioid Management Most Recent Opioid Data: Last Pain Scale 9 05/03/24 18:50 05/03/24 Last MAR Pain Assessment 05/03/24 18:50 Ur Phencyclidine Scrn Negative (NEGATIVE) 04/10/24 01:35 04/10/24 PFSH PFSH Social History Smoking status: Current every day smoker Little interest or pleasure in doing things: not at all Feeling down, depressed, or hopeless: not at all Exam Constitutional Vital Signs, click to edit/add: Last Vital Signs Temp 98 F 05/03/24 17:17 Pulse 66 05/03/24 19:30 Resp 13 05/03/24 19:30 BP 128/79 05/03/24 19:44 Pulse Ox 95 05/03/24 19:30 O2 Del Method Room Air 05/03/24 17:17 Course Vital Signs Vital signs: Vital Signs Temperature 98 F 05/03/24 17:17 Pulse Rate 71 05/03/24 17:17 Respiratory Rate 18 05/03/24 17:17 Blood Pressure 122/76 05/03/24 17:17 Pulse Oximetry 97 05/03/24 17:17 Oxygen Delivery Method Room Air 05/03/24 17:17 Temperature 98 F 05/03/24 17:17 Pulse Rate 66 05/03/24 19:30 Respiratory Rate 13 05/03/24 19:30 Blood Pressure 128/79 05/03/24 19:44 Pulse Oximetry 95 05/03/24 19:30 Oxygen Delivery Method Room Air 05/03/24 17:17 Medical Decision Making MDM Narrative Medical decision making narrative: The patient was given multiple medications and then subsequently IV Solu-Medrol and morphine and he is being discharged home. He has a headache every day chronically and was encouraged to follow-up with his specialist. Neck is supple and I have no clinical suspicion of meningitis. Differential Diagnosis Differential Diagnosis: Chronic headache, migraine headache Lab Data Lab results reviewed: Yes I reviewed the patient's lab results Labs: Lab Results 05/03/24 Range/Units 18:45 WBC 6.7 (4.0-11.0) 10^3/uL RBC 4.35 L (4.70-6.10) 10^6/uL Hgb 13.8 L (14.0-18.0) g/dL Hct 38.7 L (42.0-54.0) % MCV 89.0 (80.0-94.0) fL MCH 31.7 (25.9-34.0) pg MCHC 35.7 H (29.9-35.2) g/dL RDW 12.5 (11.0-15.0) % Plt Count 220 (150-450) 10^3/uL MPV 9.9 (9.5-13.5) fL Neut % (Auto) 59.0 (43.0-75.0) % Lymph % (Auto) 29.7 (20.5-60.0) % Talbot % (Auto) 9.6 (1.7-12.0) % Eos % (Auto) 1.0 (0.9-7.0) % Baso % (Auto) 0.6 (0.2-2.0) % Neut # (Auto) 4.0 (1.4-6.5) 10^3/uL Lymph # (Auto) 2.0 (1.2-3.8) 10^3/uL Talbot # (Auto) 0.6 (0.3-0.8) 10^3/uL Eos # (Auto) 0.1 (0.0-0.7) 10^3/uL Baso # (Auto) 0.0 (0.0-0.1) 10^3/uL Abs Immat Gran (auto) 0.01 (0.00-0.03) 10^3/uL Imm/Tot Granulo (auto) 0.1 (0.0-0.5) % Sodium 141 (136-145) mmol/L Potassium 3.4 L (3.5-5.1) mmol/L Chloride 103 (98-107) mmol/L Carbon Dioxide 29.8 (21.0-32.0) mmol/L Anion Gap 11.6 BUN 13.0 (7.0-18.0) mg/dL Creatinine 1.27 (0.70-1.30) mg/dL Est GFR ( Amer) >60 (>=60 mL/min/1.73m^2) Est GFR (Non-Af Amer) >60 (>=60 mL/min/1.73m^2) BUN/Creatinine Ratio 10.2 Glucose 98 (74-106) mg/dL Calcium 9.3 (8.5-10.1) mg/dL Troponin I High Sens 6.3 (4.0-76.1) pg/mL Discharge Plan Discharge Chief Complaint: Headache Clinical Impression: Headache, Nausea and vomiting, Chronic headache Patient Disposition: Home, Self-Care Time of Disposition Decision: 20:34 Condition: Good Mode of Transportation: Private Vehicle Prescriptions / Home Meds: No Action prednisone 10 mg tablet hydrocodone-acetaminophen 5-325 mg tablet ondansetron 4 mg tablet,disintegrating ferrous sulfate [FeroSul] 325 mg (65 mg iron) tablet 325 mg PO DAILY rizatriptan 10 mg tablet lamotrigine 25 mg tablet topiramate 50 mg tablet Print Language: Mongolian Instructions: Chronic Pain (ED) Referrals: Jc Guzman MD [Primary Care Provider] - 1 week
[2024-05-03] MEDS: MORPHINE SULFATE 4 MG/ML VIAL IV (20:54)
== END 2024-05-03 21:20 | disposition home or self-care (01) ==
PROVIDERS: Emergency Medicine; Emergency Provider Emergency Medicine; PCP Family Medicine
DX: R51.9 Headache, unspecified (principal); F17.200 Nicotine dependence, unspecified, uncomplicated; R11.2 Nausea with vomiting, unspecified
CPT/HCPCS: 36415; 80048; 84484; 85025; 93005; 96365; 96375; 99285; J0780; J1200; J1885; J2270; J2919; J3475

== ENCOUNTER 2024-09-17 10:24 | Outpatient (OUT) | payer OTHER, SELFPAY ==
--- NOTE | 2024-09-17 10:30 | CA_ITS ---
Patient Name: OLEGARIO DONALD MR#: [id number] : 1990 Exam Date: 09/17/2024 Ordering Doctor: DR LATRICIA GARCIA . ECHOCARDIOGRAM REPORT PROCEDURE: CA ECHO DOPPLER COMPLETE INDICATIONS: Orthostatic dizziness, smoker COMPARISON: None. DESCRIPTION: COMPLETE ECHOCARDIOGRAM Real-time transthoracic echocardiography with 2D, M-mode, spectral and color flow Doppler performed. QUALITY: Technical quality was good. LEFT VENTRICLE: Normal chamber size. Normal left ventricular wall thickness. Estimated left ventricular ejection fraction is 55-60%. LV EF: Normal left ventricular ejection fraction, (>55%). DIASTOLIC: Normal diastolic function. ATRIAL SEPTUM: Visually appears intact. LEFT ATRIUM: Normal chamber size. RIGHT ATRIUM: Normal chamber size. RIGHT VENTRICLE: Normal chamber size. Normal right ventricular systolic function. TRICUSPID VALVE: Normal mobility and thickness. No stenosis with trivial regurgitation. Doppler studies reveal mildly (35-45) elevated right sided pressures. RVSP 37 mmHg MITRAL VALVE: Normal mobility and thickness. No evidence of mitral valve stenosis. There is no mitral annular calcification. No mitral regurgitation. AORTIC VALVE: Normal trileaflet appearance. No visible sclerosis. Normal leaflet mobility. No evidence of aortic valve stenosis. No aortic regurgitation. AORTIC ROOT: Normal diameter and appearance, measuring 3.9 cm. Ascending aorta is normal in size, measuring 3.0 cm. PULMONIC VALVE: Normal thickness and mobility. No stenosis. Trivial regurgitation. PERICARDIUM: No evidence of pericardial effusion. IVC: Collapses with inspirations. IVC is dilated (2.4 cm) PLEURA: CONCLUSION: 1. Normal left ventricular size and systolic function. Estimated LVEF is 55 to 60%. 2. Normal right ventricular size and systolic function. 3. No significant valvular dysfunction. 4. Mildly elevated right-sided pressures. 5. No pericardial effusion. Adult Echocardiography Procedure Report Left Ventricle LVEDD (3.7 - 5.6 cm): 4.62 cm LVESD (2.2 - 4.0 cm): 3.28 cm LVIVS thickness (0.6 - 1.2 cm): 0.93 cm LVPW thickness (0.5 - 1.0 cm): 1.03 cm e': 0.14 m/s E - e': 5.37 LVOT Max Gradient: 2.85 mm[Hg] LVOT Area (cm2): 0.84 m/s Peak Velocity (LVOT): 0.84 m/s Mean Velocity (LVOT): 0.57 m/s LVOT Diameter 2.35 cm Left Atrium LA Volume Index (2D A2C): 25.65 ml/m2 Left Atrium Systolic Dimension: 3.14 cm Mitral Valve MV E to A Ratio: 1.14 Mitral Valve A-Wave Peak Velocity: 0.66 m/s Mitral Valve E-Wave Peak Velocity: 0.76 m/s Right Ventricle Aorta AO Root Diam: 3.89 cm Ascending Ao Diam: 3.05 cm Aortic Valve AoV Area (Peak Mustapha): 4.17 cm2, 4.17 cm2 AoV Area (VTI): 4.12 cm2, 4.12 cm2 Peak Velocity(Antegrade Flow): 0.88 m/s Peak Gradient(Antegrade Flow): 3.08 mm[Hg] Mean Velocity(Antegrade Flow): 0.57 m/s Mean Gradient(Antegrade Flow): 1.53 mm[Hg] Velocity Time Integral: 19.34 cm Tricuspid Valve Peak Velocity (Regurgitant Flow): 2.67 m/s Pulmonic Valve Mean Gradient: 1.43 mm[Hg] Mean Velocity: 0.55 m/s Peak Velocity: 0.87 m/s, 0.77 m/s Peak Gradient: 2.40 mm[Hg], 3.01 mm[Hg] Right Atrium Right Atrium Systolic Pressure: 43.75 ml, 43.75 ml Dictated by: Chandler Rushing M.D. on 09/17/2024 at 15:49 Approved by: Chandler Rushing M.D. on 09/17/2024 at 15:53
--- OUTSIDE RECORDS SUMMARY | 2024-09-17 10:33 | XMS_ITS | CCD ---
Author Organization [facility] Care Team Providers Care Brass Instrument Repair Technician Name Role Phone Latricia Garcia Primary Care Physician [phone] RADHA ., DR ROME Primary Care Unavailable RADHA ., DR ROME Consulting Unavailable RADHA ., DR ROME Admitting Unavailable RADHA ., DR ROME Attending Unavailable MAXIMO, DR SAUMYA Forrester Consulting Unavailable HORTENCIA, DR STEPAN Jerome Consulting Unavailable GATITO ., MR GUEVARA Consulting Unavailable CHAGO ROLLINS Consulting Unavailable ROSALINO VIDALES Consulting Unavailable EDIS HERNÁNDEZ Consulting Unavailable RAMO ZEPEDA Consulting Unavailable HANDY .SHIRLEY Consulting Unavailable AJDA PEREIRA Consulting Unavailable MAUREEN GARDNER Consulting Unavailable HELGA BAINS Consulting Unavailable HANDY ., SHIRLEY Donovan Admitting Unavailable HANDY .SHIRLEY Attending Unavailable RADHA ., DR ROME [...] Unavailable Latricia Garcia MD Primary Care Provider [phone] JON REYNOSO Referring Unavailable HOY, LATRICIA M Primary Care [...] Unavailable Latricia Garcia MD Primary Care Provider [phone] HOY, LATRICIA M Referring Unavailable HOY, LATRICIA M Primary Care Unavailable ARMANDO MEEK Attending Unavailable HOY, LATRICIA M Referring Unavailable HOY, LATRICIA M Primary Care Unavailable ARMANDO MEEK Referring Unavailable HOY, LATRICIA M Primary Care Unavailable BOUMEGOUAS, MANEL Attending Unavailable ARMANDO MEEK C Referring Unavailable HOY, LATRICIA M Primary Care Unavailable BOUMEGOUAS, MANEL Attending Unavailable BOUMEGOUAS, MANEL Referring Unavailable HOY, LATRICIA M Primary Care Unavailable BOUMEGOUAS, MANEL Attending Unavailable BOUMEGOUAS, MANEL Referring Unavailable HOY, LATRICIA M Primary Care Unavailable HOY, LATRICIA M Primary Care Unavailable KENIA CHAVEZ Attending Unavailable CIERA TORRES Attending Unavailable ARMANDO MEEK Referring Unavailable HOY, LATRICIA M Primary Care Unavailable ARMANDO MEEK C Attending Unavailable HOY, LATRICIA M Referring Unavailable HOY, LATRICIA M Primary Care Unavailable BOUMEGOUAS, MANEL Attending Unavailable HOY, LATRICIA M Referring Unavailable HOY, LATRICIA M Primary Care Unavailable ARMANDO MEEK Attending Unavailable HOY, LATRICIA M Referring Unavailable HOY, LATRICIA M Primary Care Unavailable Maureen GIRON Attending Unavailable Hoy, Latricia Referring Unavailable Allergies Allergy Classification Reported Allergen(s) Allergy Type Date of Onset Reaction(s) Facility (20 sources) Naproxen; Translations: [naproxen] Drug Allergy 3 Unknown (qualifier value), Nausea And Vomiting [facility] (1 source) Naproxen Drug Allergy [facility] Medications Current Medications Medication Drug Class(es) Dates Sig (Normalized) Sig (Original) Acetaminophen (11 sources) Start: 02-27-2024 acetaminophen (TYLENOL) tablet 650 mg take 2 tablets by mo uth every six hours as needed for pain acetaminophen (TYLENOL EXTRA STRENGTH) 5 00 mg tablet Take 2 tablets (1,000 mg total) by mouth every 6 (six) hours as needed for pain. Active acetaminophen 250 mg / aspirin 250 mg / caffeine 65 mg oral tablet (6 sources) Platelet Aggregation Inhibitor, Nonsteroidal Anti-inflammatory Drug, Central Nervous System Stimulant, Methylxanthine take 1 tablet by mouth every six hours as needed for headache xiworzd-xfzelllqjrige-sufahmvz (EXCEDRIN MIGRAINE) 250-250-65 mg per tablet Take 1 tablet by mouth every 6 (six) hours as needed for headaches. Active 100 ml calcium gluconate 20 mg/ml injection (1 source) Sta rt: 4 2,000 mg, IntraVENous, at 50 mL/hr, Administer [...] for use in patients with a CrCl 0.4 ml enoxaparin sodium 100 mg/ml prefilled syringe (1 source) Low Molecular Weight Heparin Sta rt: 4 inject 40 mg by subcutaneous injection once [...] unheld ferrous sulfate 325 mg oral tablet (16 sources) Sta rt: take 1 tablet by mouth once daily at breakfast ferrous sulfate (IRON 325) 325 (65 Fe) MG tablet Take 1 tablet by mouth daily (with breakfast) 30 tablet 1 03/02/2024 Active Start: 02-29-2024 ferrous sulfat e 325 (65 FE) mg tablet Take 1 tablet (325 mg total) by mouth. 03/02/2024 Active 1.5 ml fremanezumab-vfrm 150 mg/ml auto-injector (4 sources) Start: 06-12-2024 fremanezumab-vfrm (KoibanxOVY AUTOINJECTOR) 225 mg/1.5 mL Indications: Migraine without aura and without status migrainosus, not intractable Inject 1.5 mL (225 mg total) under the skin every 28 days. 1.5 mL 5 06/12/2024 Active 1 ml LORazepam 2 mg/ml injection (1 source) Benzodiazepine Start: 02-27-2024 4 mg, IntraVENous, EVERY 5 MIN PRN, Starting on Mon02/27/24 at 0032, Until Discontinued, Seizures, May repeat dose (4 mg) X 1 for seizures lasting more than 5 minutes. Notify provider if administered for seizure. ondansetron 4 mg oral tablet (19 sources) Serotonin-3 Receptor Antagonist Start: 06-12-2024 take 1 tablet by mouth every eight hours as needed for nausea ondansetron (ZOFRAN) 4 mg tablet Indications: Migraine without aura and without status migrainosus, not intractable Take 1 tablet (4 mg total) by mouth every 8 (eight) hours as needed for nausea or vomiting. 30 tablet 1 06/12/2024 Active Start: 03-08-2024 End: 06-12-2024 take 1 tablet by mouth twice daily as needed ondansetron (ZOFRAN) 4 mg tablet Take 1 tablet (4 mg total) by mouth 2 (two) times a day as needed. 03/08/2024 06/12/2024 Discontinued (Reorder) Start: 01-31-2024 End: 04-19-2024 ondansetron ODT (ZOFRAN ODT) 4 mg disintegrating tablet Dissolve 1 tablet (4 mg total) on tongue. 01/31/2024 04/19/2024 Discontinued Start: 07-21-2022 take 1 tablet by benito [...] pantoprazole 20 mg delayed release oral tablet (13 sources) Proton Pump Inhibitor pantoprazole (PROTONIX) 20 mg EC tablet Take 2 tablets (40 mg total) by mouth. Active polyethylene glycol 3350 98148 mg powder for oral solution (4 sources) Osmotic Laxative Start: 02-27-2024 End: 05-03-2024 polyethylene glycol (GLYCOLAX) 17 gram packet Take 17 g by mouth. 03/02/2024 05/03/2024 Active Potassium Chloride (1 source) Start: 02-27-2024 potassium chloride (KLOR-CON M) extended release tablet 40 mEq predniSONE 10 mg oral tablet (6 sources) Start: 04-02-2024 End: 04-19-2024 predniSONE (DELTASONE) 10 mg tablet Indications: Status migrainosus Take 4 tabs (40 mg) daily for 2 days, then 3 tabs (30 mg) daily for 2 days, then 2 tabs (20 mg) daily for 2 days, then 1 tab daily for 1 day, then Discontinue 19 tablet 04/03/2024 Active 24 hr propranolol hydrochloride 60 mg extended release oral capsule (9 sources) beta-Adrenergic Mic Start: 07-16-2024 take 1 capsule by mouth every twenty-four hours in the morning propranolol LA (INDERAL LA) 60 mg 24 hr capsule Indications: Migraine without aura and without status migrainosus, not intractable Take 1 capsule (60 mg total) by mouth in the morning. 30 capsule 2 07/16/2024 Active Start: 04-19-2024 End: 07-15-2024 take 1 capsule by mouth every twenty-four hours in the morning propranolol LA (INDERAL LA) 60 mg 24 hr capsule Indications: Migraine without aura and without status migrainosus, not intractable Take 1 capsule (60 mg total) by mouth in the morning. 30 capsule 2 04/19/2024 07/15/2024 Discontinued (Reorder) rimegepant 75 mg disintegrating oral tablet (14 sources) Start: 03-26-2024 rimegepant (NURTEC ODT) 75 [...] Drug Class(es) Dates Sig (Normalized) Sig (Original) acetaminophen 325 mg / HYDROcodone bitartrate 5 mg oral tablet (8 sources) Opioid Agonist Start: 03-02-2024 End: 04-19-2024 take 1 tablet by mouth every six hours as needed for pain, then take 4 tablets by mouth once daily as needed for pain HYDROcodone-acetam inophen (NORCO) 5-325 mg per tablet TAKE 1 TABLET BY MOUTH EVERY 6 HOURS NEEDED FOR PAIN (TAKE lowest dose possible to manage pain max DAILY amount FOUR TABLETS) 03/02/2024 04/19/2024 Discontinued celecoxib 200 mg oral capsule (6 sources) Nonsteroidal Anti-inflammatory Drug End: 04-19-2024 celecoxib (CeleBREX) 200 mg capsule Take 1 capsule (200 mg total) by mouth. 04/19/2024 Discontinued cephalexin 500 mg oral tablet (4 sources) Cephalosporin Antibacterial Start: 02-22-2024 End: 04-19-2024 take 1 tablet by mouth in the morning cephalexin 500 mg tablet Take 500 mg by mouth in the morning and 500 mg before bedtime. 02/22/2024 04/19/2024 Discontinued Start: 05-12-2022 take 1 capsule by [facility] every twenty-four hours Keflex 500 mg Cap 500 mg = 1 cap(s), Oral, q24hr, Take 1 pill the day before the procedure and 1 pill after the procedure., # 2 cap(s), Refills(s) 0, Pharmacy: [id number] Start Date: 05/12/22 Status: Ordered cyclobenzaprine hydrochloride 10 mg oral tablet (2 [...] dose on Mon02/28/24 at 0900, Until Discontinued gabapentin 600 mg oral tablet (6 sources) Anti-epileptic Agent End: 04-19-2024 gabapentin (NEURONTIN) 600 mg tablet Take 0.5 tablets (300 mg total) by mouth. 04/19/2024 Discontinued gadoteridol (PROHANCE) injection 20 mL (1 source) Start: 02-28-2024 End: 02-28-2024 take 1 dose intravenously once 20 mL, IntraVENous, IMG ONCE PRN, 1 dose, Starting on Mon02/28/24 at 1822, Until Mon02/28/24 at 1822, Other ketorolac tromethamine 10 mg oral tablet (6 sources) Nonsteroidal Anti-inflammatory Drug, Cyclooxygenase Inhibitor Start: 03-02-2024 End: 04-19-2024 take 1 tablet by mouth every six hours as needed ketorolac (TORADOL) 10 mg tablet Take 1 tablet (10 mg total) by mouth every 6 (six) hours as needed. 03/02/2024 04/19/2024 Discontinued Start: 02-28-2024 End: 03-04-2024 30 mg, IntraVENous, [...] not administer for more than 5 days. lamoTRIgine 25 mg oral tablet (1 source) Mood Stabilizer, Anti-epileptic Agent Start: 03-15-2024 End: 03-26-2024 lamoTRIgine (LaMICtal) [...] CrCl less than 30ml/min, On hold since [facility] 02/29/2024 at 1438 until manually unheld methocarbamol 750 mg oral tablet (6 sources) Muscle Relaxant Start: 02-12-2024 End: 04-19-2024 take 1 tablet by mouth every six hours as needed methocarbamoL (ROBAXIN) 750 mg tablet Take 1 tablet (750 mg total) by mouth every 6 (six) hours as needed. 02/12/2024 04/19/2024 Discontinued End: 03-02-2024 take 1 tablet by mouth twice daily methocarbamol (ROBAXIN) 750 MG tablet Take 1 tablet by mouth 2 times daily 03/02/2024 Discontinued (Stop Taking at Discharge) 2 ml midazolam 1 mg/ml injection (1 source) Benzodiazepine Start: 03-01-2024 End: 03-01-2024 PRN, Starting on Mon03/01/24 at 0857, Until Mon03/01/24 at 0900, Intra-op 24 hr nicotine 0.583 mg/hr transdermal system (4 sources) Cholinergic Nicotinic Agonist Start: 03-03-2024 End: 04-19-2024 apply 1 dose transdermal route every hour nicotine (NICODERM CQ) 14 mg/[address] 1 patch on the skin. 03/03/2024 04/19/2024 Discontinued Start: 03-03-2024 apply 1 dose transde rmal [...] to facility policy for handling and disposal. phenol 14 mg/ml mucosal spray (1 source) [...] Line Care, After every IV line use tiZANidine 4 mg oral tablet (2 sources) Central alpha-2 Adrenergic Agonist Start: 02-01-2024 End: 04-19-2024 tiZANidine (ZANAFLEX) 4 mg tablet Take 2 tablets (8 mg total) by mouth. 02/01/2024 04/19/2024 Discontinued topiramate 50 mg oral tablet (7 sources) Start: 03-26-2024 End: 04-19-2024 topiramate (TOPAMAX) 50 mg tablet Indications: Migraine without aura and without status migrainosus, not intractable , Status migrainosus Take 1 tablet (50 mg) nightly for 2 weeks, then increase to 1 tablet (50 mg) twice daily 60 tablet 5 03/26/2024 04/19/2024 Discontinued valproate (DEPACON) 1,500 mg in sodium chloride 0.9 % 100 mL IVPB (1 source) Start: 02-27-2024 End: 02-27-2024 1,500 mg, IntraVENous, at 100 mL/hr, Administer over 60 Minutes, ONCE, On Mon02/27/24 at 1230, For 1 dose Problems Active Problems Problem Classification Problem Date Documented Da te Episodic/Chronic Abdominal pain (8 sources) Unspecified abdominal pain; Translations: [Right lower quadrant pain] Onset: 07-20-2022 Episodic Acute and unspecified renal failure (1 source) Acute kidney failure, unspecified; Translations: [ACUTE KIDNEY FAILURE UNSPECIFIED] Onset: 07-14-2022 Episodic Deficiency and other anemia (17 sources) Pancytopenia; Translations: [Other pancytopenia] Onset: 02-28-2024 03-02-2024 Chronic Deficiency and other anemia (2 sources) Other pancytopenia; Translations: [Other pancytopenia] Onset: 02-28-2024 Chronic Diseases of white blood cells (1 source) Elevated white blood cell count, unspecified; Translations: [ELEVATED WHITE BLOOD CELL COUNT UNS] Onset: 07-14-2022 Chronic Fluid and electrolyte disorders (1 source) Dehydration; Translations: [DEHYDRATION] Onset: 07-14-2022 Episodic Headache; including migraine (11 sources) Migraine without aura, not intractable, without status migrainosus; Translations: [Migraine, unspecified, not intractable, with status migrainosus] Onset: 03-26-2024 04-19-2024 Chronic Headache; including migraine (2 sources) Headache; including migraine; Translations: [Headache, unspecified] Onset: 02-26-2024 Miscellaneous mental health disorders (20 sources) Multiple personality disorder; 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] Onset: 04-05-2024 07-13-2022 Chronic Nonspecific chest pain (1 source) Other chest pain; Translations: [OTHER CHEST PAIN] Onset: 07-22-2022 Episodic Other connective tissue disease (2 sources) Neurological finding 06-11-2024 Episodic Other diseases of kidney and ureters [...] Translations: [Tremor, unspecified] Onset: 04-19-2024 Episodic Other nervous system disorders (3 sources) Psychosomatic musculoskeletal symptoms; Translations: [Tremor, unspecified] 04-19-2024 Episodic Other non-traumatic joint disorders (1 [...] [Cannabis abuse, uncomplicated] Onset: 07-26-2022 Chronic Syncope (9 sources) Syncope symptom; Translations: [Syncope and collapse] Onset: 03-26-2024 05-17-2024 Episodic Unclassified (1 source) CONTACT W/AND (SUSP) EXPOS COVID-19; Translations: [CONTACT W/AND (SUSP) EXPOS COVID-19] Onset: 07-14-2022 Unclassified (1 source) New Patient Onset: 04-08-2024 Viral infection (2 sources) Herpes simplex 07-13-2022 Episodic Past or Other Problems Problem Classification Problem Date Documented Date Episodic/Chronic Calculus of urinary tract (20 sources) Ureteric stone; Translations: [Calculus of ureter] Onset: 07-06-2022 Episodic Epilepsy; convulsions (20 sources) Unspecified convulsions; Translations: [Seizure] Onset: 02-26-2024 02-26-2024 Episodic Joint disorders and dislocations; trauma-related (2 sources) Unspecified dislocation of right patella, initial encounter; Translations: [Unspecified dislocation of right patella, initial encounter] Onset: 06-09-2023 Episodic Mood disorders (14 sources) Mood disorders Onset: 03-26-2024 03-26-2024 Osteoarthritis (13 sources) Arthritis; Translations: [Unspecified osteoarthritis, unspecified site] Onset: 04-05-2024 Resolved: 04-05-2024 07-13-2022 Chronic Residual codes; unclassified (1 source) Other specified postprocedural states; Translations: [Other specified postprocedural states] Onset: 03-13-2023 Episodic Results Test Name Value Interpretation Reference Range Facility Ambulatory Visit Summaryon 0 09-04-2024 Ambulatory Visit Summary Ambulatory Visit Summary ETHAN DONALD :1990 Visit Date:09/04/2024 Ambulatory Visit Instructions Your Care Team Attending Physician - BREE WILEY, Maureen Forrester Primary Care Physician - Latricia Garcia MD Referring Physician - Latricia Garcia MD This Is Your Medications List Contact prescribing physician if questions or concerns fludrocortisone (fludrocortisone 0.1 mg Tab) fremanezumab (Ajovy 225 mg/1.5 mL subcutaneous solution) ondansetron (Zofran 4 mg Tab) rimegepant (Nurtec ODT 75 mg oral tablet, disintegrating) topiramate (topiramate 50 mg Tab) Procedures Performed Cystoscopic removal of ureteric stent (05/23/2022), Cystoscopic laser lithotripsy of ureteric calculus (05/08/2022), Arthrotomy of knee, Excision of intradermal nevus, Fracture of nasal bones, Ingrown toenail. Discharge Vitals Heart Rate (Peripheral) 72 Respiratory Rate 16 Blood Pressure 138/84 Height 175 cm Height 69 in Weight 103.5 kg Weight 228.178 lb BMI 33.8 Medications What How Much When Instructions Unchanged fludrocortisone (fludrocortisone 0.1 mg Tab) 1 Tablets By Mouth 2 times a day Contact prescribing physician if questions or concerns Unchanged fremanezumab (Ajovy 225 mg/ 1.5 mL subcutaneous solution) 225 Milligram Subcutaneous Once a month Contact prescribing physician if questions or concerns Unchanged ondansetron (Zofran 4 mg Tab) 1 Tablets By Mouth Every 6 hours as needed for Nausea/Vomiting Contact prescribing physician if questions or concerns Unchanged rimegepant (Nurtec ODT 75 mg oral tablet, disintegrating) 1 Tablets Sublingual Once Contact prescribing physician if questions or concerns Unchanged topiramate (topiramate 50 mg Tab) 1 Tablets By Mouth Every day Contact prescribing physician if questions or concerns Allergies naproxen (Gastrointestinal upset) Problems Ongoing - Any problem that you are currently receiving treatment for. BMI 33.0-33.9,adult Herpes simplex History of kidney stones Migraines Multiple personality disorder Neutropenia Pancytopenia Ureteral stone Vascular insufficiency Patient Survey You may receive a survey via text or e-mail asking about your office visit. Please share your experience with us by completing your survey. We appreciate your feedback and thank you for choosing us for your care. Normal [facility] EEGon 06-05-2024 Images from the original result were not included. [facility] VIDEO-EEG REPORT EEG Service Date: 15:52 on 05/09/2024 until 10:10 on 05/12/2024. The study was monitored by technologist at least a minimum of once every 2 hours. Date of Report: 05/17/24 History: Ethan Donald is a 33 y.o. male with a history of episodes of loss of consciousness concerning for seizures, who is undergoing an EEG to evaluate for underlying epileptiform activity, subclinical seizures, and characterizing the clinical event. Medications: Topiramate, hydrocodone, Zofran and ferrous sulfate Level of Consciousness: Awake and asleep. Duration of Study: 66 hours and 00 minutes. Technical description: This EEG was acquired with electrodes placed according to the 10-20 electrode placement system. A single EKG channel was recorded for cardiac rhythm monitoring. Video was recorded simultaneously. Quality of recording was fair except for intermittent P8 electrode artifact. Entire study along with the video for selected events was reviewed. EEG Report: Occipital dominant rhythm was seen as 11 to 12 Hz sinusoidal activity with amplitude of 20-40 V. This activity was sinusoidal in morphology, and was symmetric, and reactive to eye closure. Most of the awake background was comprised of intermittent 10 to 11 hertz rhythms admixed with low amplitude fast rhythms. Focal slowing was not seen in the awake state, although intermittent slowing was observed during sleep over left temporal region. Drowsiness and sleep states were seen, manifested by disappearance of eye blinks and EMG artifact, drop-off in PDR, appearance of vertex sharp waves, sleep spindles, K-complexes, and positive occipital sharp transients of sleep (POSTS), consistent with stages N1 and N2 of non-REM sleep. N3 stage sleep was also recorded, evidenced by 1-2 Hz delta activity with amplitude of >75uV in fronto-central regions. Epochs of REM-sleep were also recorded.. Activation Procedures: Photic stimulation and hyperventilation were not performed. Interictal epileptiform abnormalities: Interictal epileptiform discharges were not seen Ictal Events: None. Clinical Events: Pushbutton events were recorded at following times: 07:43 on 05/10/2024: The patient was standing by the bed, we fell backwards onto the bed. The EEG retained normal awake background during this event. The event lasted about 1 minute, before the patient sat up. No change was observed in the EKG rhythm either. 10:29 on 05/10/2024: The patient exhibited slumping over of the head to the right side, as he was sitting in the bed. This was followed by intermittent generalized jerking. He sat up in the bed around 10:30 following other jerk. The EEG did not show any epileptiform activity throughout this entire episode. There was no change in the EKG rhythm either. 13:10 on 05/10/2024: The patient was again sitting in the bed, when his head slumped over to the left side. He stayed motionless for about 40 seconds, before sitting up again. The EEG did not show any epileptiform activity or change in EKG rhythm throughout this event. 08:03 on 05/10/2024: The patient was sitting up in the bed, in his head bobbed off to the right side, as he pushed the event button. The EEG did not show any epileptiform activity immediately before or after the event. 09:39 on 05/10/2024: The patient was sitting up in the bed, when his head fell to the left side and he apparently passed out, before getting up with a jerk after about 20 seconds. He pushed the event button afterwards. The EEG did not show any epileptiform activity immediately before or after the pushbutton event. No change was observed on the EKG channel. 19:58 on 05/10/2024: Patient was out of camera view when he pushed the button. No symptoms were logged in for this event. The EEG did not show any epileptiform activity immediately before or after the pushbutton event. 07:43 on 05/11/2024: The patient was standing at the bed, when he fell back on the bed, and stayed apparently unresponsive for about 40 seconds, before he woke up with a sudden jerk, and pushed the event button afterwards. The EEG did not show any epileptiform activity immediately before or after the pushbutton event, as it retained a normal awake pattern. No change was observed in the EKG rhythm. 10:29 on 05/11/2024: The patient was sitting in the bed, as the head slumped over to the right side, as he apparently passed out. He woke up after about 15 seconds, and pushed the event button. No epileptiform activity was seen on the EEG immediately before or after the pushbutton event, as it retained normal awake state. No change was observed in the EKG channel either. 13:31 on 05/11/2024: The patient fell down, as he was walking out of the bedroom. No epileptiform activity was seen (more content not included)... MANUALLY TRANSCRIBED RESULTS Ambulatory EEGOrdered By: Adi Collado on 06-05-2024 [facility] [employer] Work Phone: BASIC METABOLIC PANLon 04-11 Anion gap [Moles/Vol] 7 mmol/L Normal 5-15 [facility] Comment on above: Performed By: #### C BCA, BMP, , 92137-7 #### [facility] ([id number]) [address] [place] [address]1991 Calcium [Mass/Vol] 9.2 mg/dL Normal 8.5-10.5 [facility] Comment on above: Performed By: #### C BCA, BMP, , 09343-8 #### [facility] ([id number]) [address] [place] [address] 94502 Chloride [Moles/Vol] 107 mmol/L Normal 98-109 [facility] Comment on above: Performed By: #### C BCA, BMP, , 54017-1 #### [facility] ([id number]) [address] [place] [address] 39439 CO2 [Moles/Vol] 23 mmol/L Normal 22-32 [facility] Comment on above: Performed By: #### C BCA, BMP, , 87528-9 #### [facility] ([id number]) [address] [place] [address] 61404 Creatinine [Mass/Vol] 1.20 mg/dL Normal 0.70-1.20 [facility] Comment on above: Result Comment: METH OD TRACEABLE TO IDMS STANDARD Performed By: #### C BCA, BMP, , 70408-1 #### [facility] ([id number]) [address] [place] [address] 92301 GFR/1.73 sq M.predicted among non-blacks MDRD (S/P/Bld) [Vol rate/Area] 83 mL/min/{1.73_m2} Normal >59 [facility] Comment on above: Result Comment: Reported eGFR is based on the CKD-EPI 2020 equation that does not use a race coefficient. Performed By: #### C BCA, BMP, , 63525-9 #### [facility] ([id number]) [address] [place] [address] 66073 Glucose [Mass/Vol] 95 mg/dL Normal 65-99 [facility] Comment on above: Performed By: #### C WON TORRES, , 69466-2 #### [facility] ([id number]) [address] [place] [address] 51364 Potassium [Moles/Vol] 3.7 mmol/L Normal 3.5-5.0 [facility] [facility] Comment on above: Performed By: #### C WON TORRES, , 66806-3 #### [facility] ([id number]) [address] [place] [address] 98628 Sodium [Moles/Vol] 137 mmol/L Normal 134-146 [facility] Comment on above: Performed By: #### C WON TORRES, , 51817-1 #### [facility] ([id number]) [address] [place] [address] 76944 Urea nitrogen [Mass/Vol] 18 mg/dL Normal 5-23 [facility] Comment on above: Performed By: #### C WON TORRES, , 87893-1 #### [facility] ([id number]) [address] [place] [address] 71873 CBC AND AUTO DIFFon 12-12-20 24 ABSOLUTE BASOPHIL 0.1 X10E9/L Normal 0.0-0.2 [facility] Comment on above: Performed By: #### C BRIAN, BMP, , 83067-6 #### [facility] ([id number]) [address] [place] [address] 19287 ABSOLUTE NEUTROPHIL 3.6 X10E9/L Normal 1.5-6.6 [facility] Comment on above: Performed By: #### C BCA, BMP, , 37073-2 #### [facility] ([id number]) [address] [place] [address] 24369 Basophils/100 WBC (Bld) 0.8 % Normal [facility] Comment on above: Performed By: #### C BRIAN, BMP, , 01143-8 #### [facility] ([id number]) [address] [place] [address] 84632 Eosinophils (Bld) [#/Vol] 0.2 10*3/uL Normal 0.0-0.4 [facility] Comment on above: Performed By: #### C BRIAN, BMP, , 15772-4 #### [facility] ([id number]) [address] [place] [address] 64009 Eosinophils/100 WBC (Bld) 2.3 % Normal [facility] Comment on above: Performed By: #### C BRIAN, [facility], , 71505-0 #### [facility] ([id number]) [address] [place] [address] 69033 Erythrocyte distribution width (RBC) [Ratio] 14.5 % Normal 11.5-15.0 [facility] Comment on above: Performed By: #### Irene TORRES, BMP, , 58934-4 #### [facility] ([id number]) [address] [place] [address] 45072 Hematocrit (Bld) [Volume fraction] 40.8 % Normal 39-49 [facility] Comment on above: Performed By: #### C BRIAN, BMP, , 08821-9 #### [facility] ([id number]) [address] [place] [address] 14979 Hemoglobin (Bld) [Mass/Vol] 14.0 g/dL Normal 13.0-17.0 [facility] Comment on above: Performed By: #### C BRIAN, WON, , 44262-3 #### [facility] ([id number]) [address] [place] [address] 68402 Lymphocytes (Bld) [#/Vol] 2.3 10*3/uL Normal 1.0-3.5 [facility] Comment on above: Performed By: #### C BRIAN, WON, , 67492-0 #### [facility] ([id number]) [address] [place] [address] 55507 Lymphocytes/100 WBC (Bld) 35.0 % Normal [facility] Comment on above: Performed By: #### C BRIAN, WON, , 16965-0 #### [facility] ([id number]) [address] [place] [address] 06390 MCH (RBC) [Entitic mass] 31.2 pg Normal 27-34 [facility] Comment on above: Performed By: #### C BRIAN [facility], , 23354-8 #### [facility] ([id number]) [address] [place] [address] 64882 MCHC (RBC) [Mass/Vol] 34.2 g/dL Normal 32-36 [facility] Comment on above: Performed By: #### C WON TORRES, , 03561-6 #### [facility] ([id number]) [address] [place] [address] 68307 MCV (RBC) [Entitic vol] 91 fL Normal 80-100 [facility] Comment on above: Performed By: #### C BRIAN, WON, , 46108-4 #### [facility] ([id number]) [address] [place] [address] 10979 Monocytes (Bld) [#/Vol] 0.5 10*3/uL Normal 0-0.9 [facility] Comment on above: Performed By: #### C BRIAN, BMP, , 79478-6 #### [facility] ([id number]) [address] [place] [address] 30459 Monocytes/100 WBC (Bld) 7.3 % Normal [facility] Comment on above: Performed By: #### C BRIAN, BMP, , 74523-1 #### [facility] ([id number]) [address] [place] [address] 07813 Neutrophils/100 WBC (Bld) 54.6 % Normal [facility] Comment on above: Performed By: #### C BRIAN, BMP, , 13532-8 #### [facility] ([id number]) [address] [place] [address] 19069 Platelet mean volume (Bld) [Entitic vol] 7.3 fL Normal 7-12 [facility] Comment on above: Performed By: #### C BRIAN, BMP, , 86350-1 #### [facility] ([id number]) [address] [place] [address] 33026 Platelets (Bld) [#/Vol] 245 10*3/uL Normal 150-450 [facility] Comment on above: Performed By: #### Irene TORRES, BMP, , 31812-7 #### [facility] ([id number]) [address] [place] [address] 78729 RBC COUNT 4.48 X10E12/L Normal 4.10-5.70 [facility] Comment on above: Performed By: #### C BRIAN, BMP, , 36800-7 #### [facility] ([id number]) [address] [place] [address] 65301 WBC (Bld) [#/Vol] 6.6 10*3/uL Normal 4.0-11.0 [facility] Comment on above: Performed By: #### C BRIAN WON, 37035-7, 42502-4 #### [facility] ([id number]) [address] [place] [address] 35605 MAGNESIUMon 04-11-2024 Magnesium [Mass/Vol] 2.1 mg/dL Normal 1.8-2.6 [facility] Comment on above: Performed By: #### C BRIAN WON, 26544-1, 83817-0 #### [facility] ([id number]) [address] [place] [address] 47913 Troponin I.cardiac High sens itivity method [Mass/Vol]on 04-11-2024 1 HOUR TROP I, HIGH SENSITIVITY 2 ng/L Normal <21 [facility] Comment on above: Performed By: #### 8 9579-7 #### [facility] ([id number]) [address] [place] [address] TROPONIN I, HIGH SENSITIVITY 3 ng/L Normal <21 [facility] Comment on above: Performed By: #### C BRIAN WON, 21771-8, 36979-5 #### [facility] ([id number]) [address] [place] [address] 59598 DIAGNOSTIC QUAL BCR-ABL1 ASS AY W/ REFLEXon 03-12-2024 DIAGNOSTIC QUAL BCR-ABL1 ASSAY, RESULT Not detected Normal [facility] Comment on above: Result Comment: Ther [...] reference gene is also amplified for specimen director of quality control and to ensure the integrity of RNA. [...] Transcripts Analytical Sensitivity Minor (e1a2) NCN = 0.11265 Major (e13a2) %IS = 0.0040 Major (e14a2) [...] developed and its performance characteristics determined by [employer]. It has not been cleared or approved by the U.S. Food and Drug Administration. This test was performed in a CLIA-certified laboratory and is intended for clinical purposes. Performed By: [facility] [address] [place] [address] Maintenance Shop Clerk: Sunny Roman MD, PhD CLIA Number: [id number] Performed By: #### D QBC2 #### [facility] [address] [facility] [address] DIAGNOSTIC QUAL BCR-ABL1 ASSAY, SOURCE Not Provided Normal [facility] Comment on above: Result Comment: AMEN DED on 03/12/24: Result in error was LAV Whole Blood, verified at 09:43 on 03/01/24. Performed By: #### D QBC2 #### [facility] [address] [facility] [address] CHROMOSOME ANAL. BONE MARROW on 03-11-2024 CHROMOSOME ANAL. BONE MARROW SEE BELOW Normal [facility] Comment on above: Result Comment: Photographic Intelligence Officer mosome Analysis, Bone Marrow See Note Normal [...] reviewed and approved by Akash Smith, PhD, [facility] A portion of this analysis was performed at the following location(s): [facility] INTERPRETIVE INFORMATION: Chromosome Analysis, Bone Marrow This test was developed and its performance characteristics determined by [employer]. It has not been cleared or approved by the US Food and Drug Administration. This test was performed in a CLIA certified laboratory and is intended for clinical purposes. EER Chromosome Analysis Bone Marrow See Note Authorized individuals can access the [facility] Enhanced Report using the following link: [email or web address] Performed By: [facility] [employer] [address] [place] [address] Maintenance Shop Clerk: Sunny Roman MD, PhD CLIA Number: [id number] Performed By: #### M MMP, LPBM2, CRBM2 #### [facility] [address] [address] MYELOID MALIGANCIES MUTATION PANEL BY [employer] 03-08-2024 EER MYELOID MALIGNANCIES PANEL BY NGS See Note Normal [facility] Comment on above: Result Comment: Auth orized individuals can access the [facility] Enhanced Report using the following link: [email or web address] Performed By: [employer] [employer] [address] [place] [address] Maintenance Shop Clerk: Sunny Roman MD, PhD CLIA Number: [id number] Performed By: #### M MMP, LPBM2, CRBM2 #### [facility] [address] [place] [address] MYELOID MALIGNANCIES PANEL INTERP See Note Normal [facility] Comment on above: Result Comment: Myeloid Malignancies Mutation Panel NGS Submitted diagnosis or diagnosis under consideration for variant interpretation: Pancytopenia TIER 1: Variants of Known Clinical Significance in Hematologic Malignancies None found TIER 2: Variants of Unknown Clinical Significance in Hematologic Malignancies 1. NSD1 c.7576C>T, p.Kkc9839Lwh ([id number]) VAF: 49.0% This variant has not been reported in hematologic malignancies, to the best of our knowledge. 2. KMT2A c.5573G>A, p.Ojr1549Far ([id number]) VAF: 47.8% This variant has not been reported in hematologic malignancies, to the best of our knowledge. This result has been reviewed and approved by Zulay Abdi M.D. Low coverage regions: Listed below are regions where the average sequencing depth (number of times a particular nucleotide is sequenced) in at least 20% of the nviynz-pn-uxmnfefi is less than our stringent cutoff of [...] NOTCH1; NPM1*; NRAS; NSD1; PHF6; PIGA; PPM1D; RKJS42Y; PRPF8; PTPN11; RAD21; RUNX1; SAMD9; SAMD9L; SETBP1; [...] LPBM2, CRBM2 #### [facility] [address] [facility] [place] [address] MYELOID MALIGNANCIES PANEL SPECIMEN Bone Marrow Normal [facility] Comment on above: Performed By: #### M MMP, LPBM2, CRBM2 #### [facility] [address] [facility] [place] [address] MYELOID MALIGNANCY PROPOSED DIAGNOSIS Pancytopenia Normal [facility] Comment on above: Performed By: #### M MMP, LPBM2, CRBM2 #### [facility] [address] [facility] [place] [address] LEUKEMIA/LYMPHOMA PHENO BLOO Don 03-05-2024 LEUKEMIA/LYMPHOMA PHENO BLOOD SEE BELOW Normal [facility] Comment on above: Result Comment: Leuk [...] loss of CD16 without any other abnormality) Broadwater:Lambda Ratio: approx. 2:1 CD4:CD8 Ratio: approx. 8:1 Viability: 58% Markers run: HLA-DR, Broadwater, Lambda, CD2, CD3, CD4, CD5, CD7, CD8, CD10, CD11b, CD13, CD14, CD16, CD19, CD20, CD23, CD33, CD34, CD38, CD45, CD56, CD57, CD64, CD117, CD200 Num of Markers Run: 26 This result has been reviewed and approved by Kostas Miller M.D., Ph.D. 03/05/2024 INTERPRETIVE INFORMATION: Leuk/Lymph Phenotyping, Flow Cytometry This test was developed and its performance characteristics determined by [employer]. It has not been cleared or approved by the US Food and Drug Administration. This test was performed in a CLIA certified laboratory and is intended for clinical purposes. Performed By: [facility] [address] [place] [address] Maintenance Shop Clerk: Sunny Roman MD, PhD CLIA Number: [id number] Performed By: #### C , WSR #### [address] [address] LEUKEMIA/LYMPHOMA PHENO BONE MARROWon 03-03-2024 LEUKEMIA/LYMPHOMA PHENO BONE MARROW SEE BELOW Normal [facility] Comment on above: Result Comment: Leuk [...] Viability: 82% Markers run: cKappa, cLambda, HLA-DR, Broadwater, Lambda, CD2, CD3, CD4, CD5, CD7, CD8, CD10, CD11b, CD13, CD14, CD16, CD19, CD20, CD23, CD33, CD34, CD38, CD45, CD56, CD57, CD64, CD117, CD138, CD200 Num of Markers Run: 29 This result has been reviewed and approved by Kostas Miller M.D., Ph.D. 03/03/2024 INTERPRETIVE INFORMATION: Leuk/Lymph Phenotyping, Flow Cytometry This test was developed and its performance characteristics determined by [employer]. It has not been cleared or approved by the US Food and Drug Administration. This test was performed in a CLIA certified laboratory and is intended for clinical purposes. Performed By: [facility] [address] [place] [address] Maintenance Shop Clerk: Sunny Roman MD, PhD CLIA Number: [id number] Performed By: #### M MMP, LPBM2, CRBM2 #### [facility] [address] [facility] [address] ANION GAPon 03-02-2024 Anion gap [Moles/Vol] 9.0 mmol/L Normal 8.0-16.0 [facility] Comment on above: Result Comment: ANIO N GAP = Sodium -(Chloride + CO2) Performed By: #### C RP, WSR #### [facility] [address] [place] [address] Anion Gapon 03-02-2024 Anion gap [Moles/Vol] 9.0 mmol/L 8.0 - 16.0 meq/L [facility] Comment on above: ANION GAP = Sodium - (Chloride + CO2) Performed at [facility] [address] [place] [address] BASIC METABOL PANELon 2023 Calcium [Mass/Vol] 8.4 mg/dL Low 8.5-10.5 [facility] Comment on above: Performed By: #### Irene RP, WSR #### [facility] [address] [place] [address] 41576 Chloride [Moles/Vol] 100 mmol/L Normal 98-111 [facility] Comment on above: Performed By: #### Irene RP, WSR #### [facility] [address] [place] [address] 26698 CO2 [Moles/Vol] 29 mmol/L Normal 23-33 [facility] Comment on above: Performed By: #### Irene RP, WSR #### [facility] [address] [place] [address] 85719 Creatinine [Mass/Vol] 0.9 mg/dL Normal 0.4-1.2 [facility] Comment on above: Performed By: #### C RP, WSR #### [facility] [address] [place] [address] 48502 Glucose [Mass/Vol] 103 mg/dL Normal 70-108 [facility] Comment on above: Performed By: #### C RP, WSR #### [facility] [address] [place] [address] 25350 Potassium [Moles/Vol] 3.7 mmol/L Normal 3.5-5.2 [facility] Comment on above: Performed By: #### C RP, WSR #### [facility] [address] [place] [address] Sodium [Moles/Vol] 138 mmol/L Normal 135-145 [facility] Comment on above: Performed By: #### C RP, WSR #### [facility] [address] [place] [address] Urea nitrogen [Mass/Vol] 10 mg/dL Normal 7-22 [facility] Comment on above: Performed By: #### C RP, WSR #### [facility] [address] [place] [address] Basic metabolic 2000 panelon 03-02-2024 Calcium [Mass/Vol] 8.4 mg/dL Low 8.5 - 10. 5 mg/dL [facility] Comment on above: Performed at [facility] [address] [place] [address] Chloride [Moles/Vol] 100 mmol/L 98 - 111 meq/L [facility] CO2 [Moles/Vol] 29 mmol/L 23 - 33 meq/L [facility] Creatinine [Mass/Vol] 0.9 mg/dL 0.4 - 1.2 mg/dL [facility] Glucose [Mass/Vol] 103 mg/dL 70 - 108 mg/dL [facility] Interpretation and review of laboratory results Abnormal [facility] Potassium [Moles/Vol] 3.7 mmol/L 3.5 - 5.2 meq/L [facility] Sodium [Moles/Vol] 138 mmol/L 135 - 145 meq/L [facility] Urea nitrogen [Mass/Vol] 10 mg/dL 7 - 22 mg/dL [facility] CBC WITH DIFFERENTIALon ATYPICAL LYMPH OCC. Normal [facility] Comment on above: Performed By: #### C DMITRY, SCAN1 #### [facility] [address] [place] [address] PLATELET ESTIMATE SL DECREASED Normal Adequate [facility] Comment on above: Performed By: #### C DMITRY, SCAN1 #### [facility] [address] [place] [address] SMUDGE CELLS Present Normal Absent [facility] Comment on above: Performed By: #### C DMITRY, SCAN1 #### [facility] [address] [place] [address] ABS BASOPHILS 0.0 thou/mm3 Normal 0.0-0.1 [facility] Comment on above: Performed By: #### C DMITRY, SCAN1 #### [facility] [address] [place] [address] ABS EOSINOPHILS 0.0 thou/mm3 Normal 0.0-0.4 [facility] Comment on above: Performed By: #### C DMITRY, SCAN1 #### [facility] [address] [place] [address] ABS IMMATURE GRANS (IG) 0.08 thou/mm3 High 0.00-0.07 [facility] Comment on above: Performed By: #### C DMITRY, SCAN1 #### [facility] [address] [place] [address] ABS LYMPHOCYTES 0.7 thou/mm3 Low 1.0-4.8 [facility] Comment on above: Performed By: #### C DMITRY, SCAN1 #### [facility] [address] [place] [address] ABS MONOCYTES 0.1 thou/mm3 Low 0.4-1.3 [facility] Comment on above: Performed By: #### Irene ANDRES, SCAN1 #### [facility] [address] [place] [address] ABS NEUTROPHILS 0.9 thou/mm3 Low 1.8-7.7 [facility] Comment on above: Performed By: #### C DMITRY, SCAN1 #### [facility] [address] [place] [address] Basophils/100 WBC (Bld) 0.5 % Normal [facility] Comment on above: Performed By: #### C DMITRY, SCAN1 #### [facility] [address] [place] [address] Eosinophils/100 WBC (Bld) 2.6 % Normal [facility] Comment on above: Performed By: #### Irene ANDRES, SCAN1 #### [address] [address] Erythrocyte distribution width (RBC) [Ratio] 12.1 % Normal 11.5-14.5 [facility] Comment on above: Performed By: #### C DMITRY, SCAN1 #### [address] [address] Hematocrit (Bld) [Volume fraction] 33.8 % Low 42.0-52.0 [facility] Comment on above: Performed By: #### C DMITRY, SCAN1 #### [address] [address] Hemoglobin (Bld) [Mass/Vol] 11.6 g/dL Low 14.0-18.0 [facility] Comment on above: Performed By: #### C DMITRY, SCAN1 #### [address] [address] IMMATURE GRANS (IG) 4.2 % Normal [facility] Comment on above: Performed By: #### C DMITRY, SCAN1 #### [address] [address] Lymphocytes/100 WBC (Bld) 37.0 % Normal [facility] Comment on above: Performed By: #### C DMITRY, SCAN1 #### [address] [address] MCH (RBC) [Entitic mass] 30.9 pg Normal 26.0-33.0 [facility] Comment on above: Performed By: #### C DMITRY, SCAN1 #### [address] [address] MCHC (RBC) [Mass/Vol] 34.3 g/dL Normal 32.2-35.5 [facility] Comment on above: Performed By: #### C DMITRY, SCAN1 #### [address] [address] MCV (RBC) [Entitic vol] 90.1 fL Normal 80.0-94.0 [facility] Comment on above: Performed By: #### C DMITRY, SCAN1 #### [address] [address] Monocytes/100 WBC (Bld) 7.8 % Normal [facility] Comment on above: Performed By: #### Irene ANDRES, SCAN1 #### [facility] [address] [place] [address] Neutrophils/100 WBC (Bld) 47.9 % Normal [facility] Comment on above: Performed By: #### Irene ANDRES, SCAN1 #### [facility] [address] [place] [address] NRBC 0 /100 wbc Normal [facility] Comment on above: Performed By: #### Irene ANDRES, SCAN1 #### [facility] [address] [place] [address] PLATELET 100 thou/mm3 Low 130-400 [facility] Comment on above: Performed By: #### Irene ANDRES, SCAN1 #### [facility] [address] [place] [address] Platelet mean volume (Bld) [Entitic vol] 11.4 fL Normal 9.4-12.4 [facility] Comment on above: Performed By: #### Irene ANDRES, SCAN1 #### [facility] [address] [place] [address] 47401 RBC 3.75 mill/mm3 Low 4.70-6.10 [facility] Comment on above: Performed By: #### Irene ANDRES, SCAN1 #### [facility] [address] [place] [address] RDW-SD 40.8 fL Normal 35.0-45.0 [facility] Comment on above: Performed By: #### Irene ANDRES, SCAN1 #### [facility] [address] [place] [address] WBC 1.9 thou/mm3 Low 4.8-10.8 [facility] Comment on above: Performed By: #### Irene ANDRES, SCAN1 #### [facility] [address] [place] [address] CBC with Auto Differentialon 03-02-2024 Basophils (Bld) [#/Vol] 0.0 10*3/uL [facility] Basophils/100 WBC (Bld) 0.5 % [facility] Monocytes Absolute 0.1 Low Bon [facility] Monocytes/100 WBC (Bld) 7.8 % [...] [facility] Comment on above: Performed at [facility] [address] [place] [address] Variant lymphocytes LM Ql (Bld) OCC. % [facility] WBC (Bld) [#/Vol] 1.9 10*3/uL Low Bon [facility] EKG Rhythm Stripon [employer]ACEART [facility] FRNACES VARNER VIRUS ANTIBODIE Son 03-02-2024 FRANCES VARNER VIRUS ANTIBODIES SEE BELOW Normal [facility] Comment on above: Result Comment: EBV [...] helpful. 11.0 U/mL or greater....Detected Performed By: [facility] [address] [place] [address] Maintenance Shop Clerk: Sunny Roman MD, PhD CLIA Number: [id number] Performed By: #### M MMP, LPBM2, CRBM2 #### [facility] [address] [facility] [address] Frances varner virus (EBV) ant ibody panel Ion 03-02-2024 FRANCES-VARNER VIRUS ANTIBODIES SEE BELOW [facility] Comment on above: EBV Ab to [...] helpful. 11.0 U/mL or greater....Detected Performed By: [facility] [address] [place] [address] Maintenance Shop Clerk: Sunny Roman MD, PhD CLIA Number: [id number] [facility] [employer] GFR, ESTIMATEDon 03-02-2024 GFR/1.73 sq M.predicted MDRD (S/P/Bld) [Vol rate/Area] mL/min/{1.73_m2} Normal >60 [facility] [employer] Comment on above: Pediatric calculator link https://www.kidney.org/professionals/kdoqi/gfr_calculatorped [...] that affects renal tubular secretion. Performed at [facility] [address] [place] [address] Result Comment: Pedi atric calculator link https://www.kidney.org/professionals/kdoqi/gfr_calculatorped [...] Performed By: #### C RP, WSR #### [facility] [employer] [address] [place] [address] No Panel Informationon 03-02 [employer] [facility] SCAN OF BLOOD SMEARon 2023 SCAN OF BLOOD SMEAR see below Normal [facility] [place] Comment on above: Criteria Exceeded; S can of Differential Slide Performed Performed at [facility] [employer] [address] [place] [address] Result Comment: Nichole larkin Exceeded; Scan of Differential Slide Performed Performed By: #### C BCWD, SCAN1 #### [address] [address] BLOOD SMEAR REVIEWon PATHOLOGIST REVIEWED Tammi FUNES. Normal [facility] Comment on above: Result Comment: Panc ytopenia with normocytic anemia. No circulating blasts. No platelet clumps. Clinical correlation is recommended. Performed By: #### M MMP, LPBM2, CRBM2 #### [facility] [address] [facility] [address] SMEAR REVIEWED BY PATHOLOGIST see below [facility] Comment on above: Result Comment: See Below Performed By: #### M MMP, LPBM2, CRBM2 #### [facility] [address] [facility] [address] CBC WITH DIFFERENTIALon PATHOLOGIST REVIEWED PCF Normal [facility] Comment on above: Performed By: #### C VFLU #### [address] [address] ATYPICAL LYMPH OCC. Normal [facility] Comment on above: Performed By: #### C VFLU #### [address] [address] ABS BASOPHILS 0.0 thou/mm3 Normal 0.0-0.1 [facility] Comment on above: Performed By: #### C VFLU #### [address] [address] ABS EOSINOPHILS 0.0 thou/mm3 Normal 0.0-0.4 [facility] Comment on above: Performed By: #### C VFLU #### [address] [address] ABS IMMATURE GRANS (IG) 0.09 thou/mm3 High 0.00-0.07 [facility] Comment on above: Performed By: #### C VFLU #### [address] [address] ABS LYMPHOCYTES 0.5 thou/mm3 Low 1.0-4.8 [facility] Comment on above: Performed By: #### C VFLU #### [address] [address] ABS MONOCYTES 0.1 thou/mm3 Low 0.4-1.3 [facility] Comment on above: Performed By: #### C VFLU #### [address] [address] ABS NEUTROPHILS 1.1 thou/mm3 Low 1.8-7.7 [facility] Comment on above: Performed By: #### C VFLU #### [address] [address] Basophils/100 WBC (Bld) 1.1 % Normal [facility] Comment on above: Performed By: #### C VFLU #### [address] [address] Eosinophils/100 WBC (Bld) 1.7 % Normal [facility] Comment on above: Performed By: #### C VFLU #### [address] [address] Erythrocyte distribution width (RBC) [Ratio] 12.3 % Normal 11.5-14.5 [facility] Comment on above: Performed By: #### C VFLU #### [address] [address] Hematocrit (Bld) [Volume fraction] 38.2 % Low 42.0-52.0 [facility] Comment on above: Performed By: #### C VFLU #### [address] [address] Hemoglobin (Bld) [Mass/Vol] 12.9 g/dL Low 14.0-18.0 [facility] Comment on above: Performed By: #### C VFLU #### [address] [address] IMMATURE GRANS (IG) 5.0 % Normal [facility] Comment on above: Performed By: #### C VFLU #### [address] [address] Lymphocytes/100 WBC (Bld) 26.3 % Normal [facility] Comment on above: Performed By: #### C VFLU #### [address] [address] MCH (RBC) [Entitic mass] 30.2 pg Normal 26.0-33.0 [facility] Comment on above: Performed By: #### C VFLU #### [address] [address] MCHC (RBC) [Mass/Vol] 33.8 g/dL Normal 32.2-35.5 [facility] Comment on above: Performed By: #### C VFLU #### [address] [address] MCV (RBC) [Entitic vol] 89.5 fL Normal 80.0-94.0 [facility] Comment on above: Performed By: #### C VFLU #### [address] [address] Monocytes/100 WBC (Bld) 5.6 % Normal [facility] Comment on above: Performed By: #### C VFLU #### [address] [address] Neutrophils/100 WBC (Bld) 60.3 % Normal [facility] Comment on above: Performed By: #### C VFLU #### [address] [address] NRBC 0 /100 wbc Normal [facility] Comment on above: Performed By: #### C VFLU #### [address] [address] PLATELET 86 thou/mm3 Low 130-400 [facility] Comment on above: Performed By: #### C VFLU #### [address] [address] Platelet mean volume (Bld) [Entitic vol] 11.2 fL Normal 9.4-12.4 [facility] Comment on above: Performed By: #### C VFLU #### [address] [address] RBC 4.27 mill/mm3 Low 4.70-6.10 [facility] Comment on above: Performed By: #### C VFLU #### [facility] [address] [place] [address] RDW-SD 40.0 fL Normal 35.0-45.0 [facility] Comment on above: Performed By: #### C VFLU #### [facility] [address] [place] [address] WBC 1.8 thou/mm3 Low 4.8-10.8 [facility] Comment on above: Performed By: #### C VFLU #### [facility] [address] [place] [address] CBC with Auto Differentialon 03-01-2024 Basophils (Bld) [...] [facility] Monocytes Absolute 0.1 Low [facility] Monocytes/100 WBC (Bld) 5.6 % [facility] Neutrophils Absolute 1.1 Low [facility] Neutrophils/100 WBC (Bld) 60.3 % [facility] Nucleated RBC/100 WBC (Bld) [Ratio] 0 % /100 wbc [facility] Comment on above: Performed at [facility] [address] [place] [address] Pathologist Review PCF [facility] Platelet mean volume (Bld) [Entitic vol] 11.2 fL 9.4 - 12.4 fL [facility] Platelets (Bld) [#/Vol] 86 10*3/uL Low [facility] RBC (Bld) [#/Vol] 4.27 10*6/uL Low [facility] Variant lymphocytes LM Ql (Bld) OCC. % [facility] WBC (Bld) [#/Vol] 1.8 10*3/uL Low [facility] CT BIOPSY BONE MARROWon 11-0 CT BIOPSY [...] ox monitoring devices by a registered nurse. Wifx-xp-akmp time with patient 10 minutes. PROCEDURE: Signed [...] utilizing coaxial technique and handed to the catheterization laboratory technician for processing and evaluation. Post [...] Kostas Mendoza MD 03/01/24 Final result Normal [facility] CT Guidance for biopsy of Cosmo ne marrowon 03-01-2024 Status post successf ul CT guided bone marrow biopsy. This report has been created using voice recognition software. It may contain minor errors which are inherent in voice recognition technology. Electronically signed by Dr Kostas Mendoza [facility] CT-GUIDED BONE MARRO W BIOPSY: CLINICAL INFORMATION: [...] ox monitoring devices by a registered nurse. Sxxb-ti-qcza time with patient 10 minutes. PROCEDURE: Signed [...] utilizing coaxial technique and handed to the catheterization laboratory technician for processing and evaluation. Post procedure CT images revealed no significant post biopsy hemorrhage... At the end of the procedure, hemostasis was obtained with manual pressure The patient tolerated the procedure well. ALL CT SCANS AT THIS FACILITY use dose modulation, iterative reconstruction, and/or weight-based dosing when appropriate to reduce radiation dose to as low as reasonably achievable. [facility] Kostas Mendoza MD - 03/01/2024 CT-GUIDED BONE [...] ox monitoring devices by a registered nurse. Eqgh-pe-nubc time with patient 10 minutes. PROCEDURE: Signed [...] utilizing coaxial technique and handed to the catheterization laboratory technician for processing and evaluation. Post [...] technology. Electronically signed by Dr Kostas Mendoza [facility] Radiology Study observation (narrative) [facility] CT Guidance for biopsy of Cosmo ne marrowOrdered By: Kostas Mendoza on 03-01-2024 [facility] Work Phone: EKG 12 LeadOrdered By: Julito Morris on 03-01-2024 Atrial Rate 87 BPM [facility] Work Phone: P Anatone 73 degrees [facility] Work Phone: P-R Interval 140 ms [facility] Work Phone: Q-T Interval 378 ms [facility] Work Phone: QRS Duration 104 ms [facility] Work Phone: QTc Calculation (Bazett) 454 ms [facility] Work Phone: R Anatone 72 degrees [facility] Work Phone: T Anatone 42 degrees Jose [facility] Work Phone: Ventricular Rate 87 BPM Jose [facility] Work Phone: [facility] Work Phone: EKG 12 Leadon 03-01-2024 Normal [...] NAYELI MORRIS ([id number]) on 03/01/2024 1:00:05 PM [facility] EKG Rhythm Stripon 4 75 PACEART [facility] 81 PACEART [facility] hr 86 PACEART [facility] No Panel Informationon 03-01 [facility] Path Review, Smearon 024 REVIEWED BY Tammi FUNES. [facility] Comment on above: Pancytopenia with no rmocytic anemia. No circulating blasts. No platelet clumps. Clinical correlation is recommended. Performed at [facility] [address] [place] [address] Smear Review see below [facility] Comment on above: See Below SCAN OF BLOOD SMEARon 2023 SCAN OF BLOOD SMEAR see below Normal [facility] Comment on above: Criteria Exceeded; S can of Differential Slide Performed Performed at [facility] [address] [place] [address] Result Comment: Nichole Spencer; Scan of Differential Slide Performed Performed By: #### C VFLU #### [facility] [address] [place] [address] SURGICALon 03-01-2024 SURGICAL [facility] ETHAN LAGUNAS [id number] Assoc. Page 1 of [address] [place] [address] PROC: 03/01/2024 [facility] RECV: 03/01/[address] RPTD: 03/20/2024 [place] [address] LOC: 4A ACCT: [id number] SEX: M : 1990 AGE: 33 Y [...] x 2.0 x 0.7 cm in aggregate. Statistics Intern blood clot is submitted in one cassette labeled A1. B - The specimen container is labeled Ethan oDnald, bone marrow core. The specimen is received [...] currently pending. Please see separate reference reports. [id number] [phone] x 2 LIZY BRISCOE M.D., F.C.A.P. [facility]/ [facility] Printed on: 03/20/[address] [place] [address] Original print date: 03/20/2024 Normal [facility] Scan of Blood Smearon 2023 [facility] ANION GAPon 02-29-2024 Anion gap [Moles/Vol] 13.0 mmol/L Normal 8.0-16.0 [facility] Comment on above: Result Comment: ANIO N GAP = Sodium -(Chloride + CO2) Performed By: #### C VFLU #### [facility] [address] [place] [address] Anion Gapon 02-29-2024 Anion gap [Moles/Vol] 13.0 mmol/L 8.0 - 16.0 meq/L [facility] Comment on above: ANION GAP = Sodium - (Chloride + CO2) Performed at [facility] [address] [place] [address] BASIC METABOL PANELon 2023 Calcium [Mass/Vol] 8.3 mg/dL Low 8.5-10.5 [facility] Comment on above: Performed By: #### C VFLU #### [facility] [address] [place] [address] Chloride [Moles/Vol] 102 mmol/L Normal 98-111 [facility] Comment on above: Performed By: #### C VFLU #### [facility] [address] [place] [address] CO2 [Moles/Vol] 24 mmol/L Normal 23-33 [facility] Comment on above: Performed By: #### C VFLU #### [facility] [address] [place] [address] Creatinine [Mass/Vol] 1.1 mg/dL Normal 0.4-1.2 [facility] Comment on above: Performed By: #### C VFLU #### [facility] [address] [place] [address] Glucose [Mass/Vol] 96 mg/dL Normal 70-108 [facility] Comment on above: Performed By: #### C VFLU #### [facility] [address] [place] [address] Potassium [Moles/Vol] 3.7 mmol/L Normal 3.5-5.2 [facility] Comment on above: Performed By: #### C VFLU #### [facility] [address] [place] [address] Sodium [Moles/Vol] 139 mmol/L Normal 135-145 [facility] Comment on above: Performed By: #### C VFLU #### [facility] [address] [place] [address] Urea nitrogen [Mass/Vol] 13 mg/dL Normal 7-22 [facility] Comment on above: Performed By: #### C VFLU #### [address] [address] Basic metabolic 2000 panelon 02-29-2024 Calcium [Mass/Vol] 8.3 mg/dL Low 8.5 - 10. 5 mg/dL [facility] Comment on above: Performed at [facility] [address] [place] [address] Chloride [Moles/Vol] 102 mmol/L 98 - 111 meq/L [facility] CO2 [Moles/Vol] 24 mmol/L 23 - 33 meq/L [facility] Creatinine [Mass/Vol] 1.1 mg/dL 0.4 - 1.2 mg/dL [facility] Glucose [Mass/Vol] 96 mg/dL 70 - 108 mg/dL [facility] Interpretation and review of laboratory results Abnormal [facility] Potassium [Moles/Vol] 3.7 mmol/L 3.5 - 5.2 meq/L [facility] Sodium [Moles/Vol] 139 mmol/L 135 - 145 meq/L [facility] Urea nitrogen [Mass/Vol] 13 mg/dL 7 - 22 mg/dL [facility] C-REACTIVE PROTEINon 024 C-REACTIVE PROTEIN 4.49 mg/dl High 0.00-1.00 [facility] Comment on above: Performed By: #### C RP, WSR #### [address] [address] C-Reactive Proteinon 024 CRP [Mass/Vol] 4.49 mg/dl High 0.00 - 1.00 mg/dl [facility] Comment on above: Performed at [facility] [address] [place] [address] CALCIUM (IONIZED) * WBon CALCIUM (IONIZED) * WB 1.11 mmol/L Low 1.12-1.32 [facility] Comment on above: Performed By: #### C VFLU #### [address] [address] CBC WITH DIFFERENTIALon 01-31 PLATELET ESTIMATE DECREASED Normal Adequate [facility] Comment on above: Performed By: #### C VFLU #### [address] [address] SMUDGE CELLS Present Normal Absent [facility] Comment on above: Performed By: #### C VFLU #### [address] [address] ABS BASOPHILS 0.0 thou/mm3 Normal 0.0-0.1 [facility] Comment on above: Performed By: #### C VFLU #### [address] [address] ABS EOSINOPHILS 0.0 thou/mm3 Normal 0.0-0.4 [facility] Comment on above: Performed By: #### C VFLU #### [address] [address] ABS IMMATURE GRANS (IG) 0.05 thou/mm3 Normal 0.00-0.07 [facility] Comment on above: Performed By: #### C VFLU #### [address] [address] ABS LYMPHOCYTES 0.4 thou/mm3 Low 1.0-4.8 [facility] Comment on above: Performed By: #### C VFLU #### [address] [address] ABS MONOCYTES 0.1 thou/mm3 Low 0.4-1.3 [facility] Comment on above: Performed By: #### C VFLU #### [address] [address] ABS NEUTROPHILS 0.9 thou/mm3 Low 1.8-7.7 [facility] Comment on above: Performed By: #### C VFLU #### [address] [address] Basophils/100 WBC (Bld) 1.4 % Normal [facility] Comment on above: Performed By: #### C VFLU #### [address] [address] Eosinophils/100 WBC (Bld) 0.7 % Normal [facility] Comment on above: Performed By: #### C VFLU #### [address] [address] Erythrocyte distribution width (RBC) [Ratio] 12.0 % Normal 11.5-14.5 [facility] Comment on above: Performed By: #### C VFLU #### [address] [address] Hematocrit (Bld) [Volume fraction] 36.0 % Low 42.0-52.0 [facility] Comment on above: Performed By: #### C VFLU #### [address] [address] Hemoglobin (Bld) [Mass/Vol] 12.2 g/dL Low 14.0-18.0 [facility] Comment on above: Performed By: #### C VFLU #### [address] [address] IMMATURE GRANS (IG) 3.4 % Normal [facility] Comment on above: Performed By: #### C VFLU #### [address] [address] Lymphocytes/100 WBC (Bld) 25.0 % Normal [facility] Comment on above: Performed By: #### C VFLU #### [address] [address] MCH (RBC) [Entitic mass] 30.7 pg Normal 26.0-33.0 [facility] Comment on above: Performed By: #### C VFLU #### [address] [address] MCHC (RBC) [Mass/Vol] 33.9 g/dL Normal 32.2-35.5 [facility] Comment on above: Performed By: #### C VFLU #### [facility] [address] [place] [address] MCV (RBC) [Entitic vol] 90.5 fL Normal 80.0-94.0 [facility] Comment on above: Performed By: #### C VFLU #### [address] [address] Monocytes/100 WBC (Bld) 7.4 % Normal [facility] Comment on above: Performed By: #### C VFLU #### [address] [address] Neutrophils/100 WBC (Bld) 62.1 % Normal [facility] Comment on above: Performed By: #### C VFLU #### [address] [address] NRBC 0 /100 wbc Normal [facility] Comment on above: Performed By: #### C VFLU #### [address] [address] PLATELET 89 thou/mm3 Low 130-400 [facility] Comment on above: Performed By: #### C VFLU #### [address] [address] Platelet mean volume (Bld) [Entitic vol] 10.7 fL Normal 9.4-12.4 [facility] Comment on above: Performed By: #### C VFLU #### [address] [address] RBC 3.98 mill/mm3 Low 4.70-6.10 [facility] Comment on above: Performed By: #### C VFLU #### [facility] [address] [place] [address] RDW-SD 40.1 fL Normal 35.0-45.0 [facility] Comment on above: Performed By: #### C VFLU #### [facility] [address] [place] [address], [place] [address] WBC 1.5 thou/mm3 Low 4.8-10.8 [facility] Comment on above: Performed By: #### C VFLU #### [facility] [address] [place] [address] CBC with Auto Differentialon 02-29-2024 Basophils (Bld) [...] [facility] Monocytes Absolute 0.1 Low [facility] Monocytes/100 WBC (Bld) 7.4 % [...] Health Platelets LM Ql (Bld) DECREASED Adequate [facility] RBC (Bld) [#/Vol] 3.98 10*6/uL Low [facility] Smudge cells LM Ql (Bld) Present Absent [facility] Comment on above: Performed at [facility] [address] [place] [address] WBC (Bld) [#/Vol] 1.5 10*3/uL Low Bon [facility] CRP [Mass/Vol]on 02-29-2024 Interpretation and review of laboratory results Abnormal [facility] Calcium, Ionizedon Calcium.ionized ISE (Bld) [Moles/Vol] 1.11 mmol/L Low 1.12 - 1.32 mmol/L [facility] Comment on above: Performed at [facility] [address] [place] [address] EKG 12-LEADon 02-29-2024 EKG 12-LEAD 87 87 140 104 378 454 73 72 42 Normal sinus rhythm Nonspecific T wave abnormality Abnormal ECG When compared with ECG of 28-FEB-2024 20:02, No significant change was found Confirmed by NAYELI MORRIS ([id number]) on 03/01/2024 1:00:05 PM [email or web address] RetrieveTestByDateTime ?GoinuodCP=[id number]&D ate=29-02-2024&Time=20 %3a57%3a59%3a00&TestTy pe=ECG&Site=3&OutputTy pe=PDF&Ext=PDF Normal [facility] ESR Westergren method (Bld) [Velocity]on 02-29-2024 ESR (Bld) [Velocity] 10 mm/h [facility] Comment on above: Performed at [facility] [address] [place] [address] Electrophoresis Protein, Ser umon 02-29-2024 Protein Electrophoresis, Serum SEE BELOW [facility] Comment on above: Total Protein, Serum 6.5 [...] See Note Authorized individuals can access the [employer] Enhanced Report using the following link: [email or web address] Performed By: [employer] [address] [place] [address] Maintenance Shop Clerk: Sunny Roman MD, PhD CLIA Number: [id number] [facility] FERRITINon 02-29-2024 Ferritin [Mass/Vol] 1435 ng/mL High 22-322 [facility] Comment on above: Performed By: #### C RP, WSR #### [employer] [facility] [address] [place] [address] Ferritinon 02-29-2024 Ferritin IA [Mass/Vol] 1435 ng/mL High 22 - 322 ng/mL [facility] Comment on above: Performed at [facility] [address] [place] [address] GFR, ESTIMATEDon 02-29-2024 GFR/1.73 sq M.predicted MDRD (S/P/Bld) [Vol rate/Area] mL/min/{1.73_m2} Normal >60 [facility] Comment on above: Pediatric calculator link [...] that affects renal tubular secretion. Performed at [address] [address] Result Comment: Danyel atric calculator link https://www.kidney.org/professionals/kdoqi/gfr_calculatorped [...] secretion. Performed By: #### C VFLU #### [address] [address] HEPATIC FUNCTION PANELon Albumin [Mass/Vol] 3.3 g/dL Low 3.5-5.1 [facility] Comment on above: Performed By: #### C RP, WSR #### [address] [address] ALP [Catalytic activity/Vol] 89 U/L Normal 38-126 [facility] Comment on above: Performed By: #### C RP, WSR #### [facility] [address] [place] [address] ALT [Catalytic activity/Vol] 49 U/L Normal 11-66 [facility] Comment on above: Performed By: #### C RP, WSR #### [facility] [address] [place] [address] AST [Catalytic activity/Vol] 61 U/L High 5-40 [facility] Comment on above: Performed By: #### C RP, WSR #### [facility] [address] [place] [address] Bilirubin [Mass/Vol] 0.7 mg/dL Normal 0.3-1.2 [facility] Comment on above: Performed By: #### C RP, WSR #### [facility] [address] [place] [address] Bilirubin.direct [Mass/Vol] 0.3 mg/dL Normal 0.1-13.8 [facility] Comment on above: Performed By: #### C RP, WSR #### [facility] [address] [place] [address] Protein [Mass/Vol] 5.8 g/dL Low 6.1-8.0 [facility] Comment on above: Performed By: #### C RP, WSR #### [facility] [address] [place] [address] HIV 1+2 Ab+HIV1 p24 Ag IA Ql on 02-29-2024 [facility] HIV AG/ABon 02-29-2024 HIV AG/AB SEE BELOW Normal [facility] Comment on above: Result Comment: HIV Ag/Ab NONREACTIVE NR No laboratory evidence of HIV infection. If acute HIV infection is suspected, consider testing for HIV-1 RNA. Performed at [facility], [address] [place] [address] . Performed By: #### C CANDY, WSR #### [facility] [address] [place] [address] HIV Screenon 02-29-2024 HIV 1+2 Ab+HIV1 p24 Ag IA Ql SEE BELOW [facility] Comment on above: HIV Ag/Ab NONREACTIV E NR No laboratory evidence of HIV infection. If acute HIV infection is suspected, consider testing for HIV-1 RNA. Performed at [facility], [address] [place] [address] . Hepatic function 2000 panelo n 02-29-2024 Albumin BCG dye [Mass/Vol] 3.3 g/dL Low 3.5 - 5.1 g/dL [facility] ALP [Catalytic activity/Vol] 89 U/L 38 - 126 U/L [facility] ALT No additional P-5'-P [Catalytic activity/Vol] 49 U/L 11 - 66 U/L [facility] AST [Catalytic activity/Vol] 61 U/L High 5 - 40 U/L [facility] [facility] Bilirubin [Mass/Vol] 0.7 mg/dL 0.3 - 1.2 mg/dL [facility] Bilirubin.conjugate d [Mass/Vol] 0.3 mg/dL 0.1 - 13.8 mg/dL [facility] Protein [Mass/Vol] 5.8 g/dL Low 6.1 - 8.0 g/dL [facility] Comment on above: Performed at [facility] ion Medical Lab [address] [place] [address] IRONon 02-29-2024 Iron [Mass/Vol] 31 ug/dL Low 65-195 [facility] Comment on above: Performed By: #### C CANDY, WSR #### [facility] [address] [place] [address] IRON BINDING CAPACITYon 01-31 IRON BINDING CAPACITY 199 ug/dL Normal 171-450 [facility] Comment on above: Performed By: #### Irene GUPTA, WSR #### [facility] [address] [place] [address] IRON SATURATIONon 02-29-2024 Iron saturation [Mass fraction] 16 % Low 20 - 50 % [facility] Comment on above: Performed at [facility] [place] [address] IRON SATURATION 16 % Low 20-50 [facility] Comment on above: Performed By: #### Irene RP, WSR #### [facility] [address] [address] Ironon 02-29-2024 Iron [Mass/Vol] 31 ug/dL Low 65 - 195 ug/dL [facility] Comment on above: Performed at [facility] [place] [address] Iron binding capacityon 01-31 Iron binding capacity [Mass/Vol] 199 ug/dL 171 - 450 ug/dL [facility] Comment on above: Performed at [facility] [address] [place] [address] MR Brain WO and W contrast I Von 02-29-2024 No acute intracrania l findings. This document has been electronically signed by: Jadon Bhatti MD on 02/29/2024 02:17 AM [facility] MRI Brain W/WO Contrast COMPARISON: None FINDINGS: No evidence of acute infarction. No acute intracranial hemorrhage. No mass-effect or midline shift. No abnormal enhancement. No hydrocephalus. Clear paranasal sinuses. Clear mastoid air cells. Unremarkable orbits. [facility] Jadon Bhatti MD - 02/29/2024 MRI Brain W/WO Contrast COMPARISON: None FINDINGS: No evidence of acute infarction. No acute intracranial hemorrhage. No mass-effect or midline shift. No abnormal enhancement. No hydrocephalus. Clear paranasal sinuses. Clear mastoid air cells. Unremarkable orbits. IMPRESSION: No acute intracranial findings. This document has been electronically signed by: Jadon Bhatti MD on 02/29/2024 02:17 AM [facility] MR Brain WO and W contrast I VOrdered By: Jadon Bhatti on 02-29-2024 [facility] Work Phone: MRI BRAIN W WO [...] Jadon Bhatti MD 02/29/24 Final result Normal [facility] No Panel Informationon 02-28 Interpretation and review of laboratory results Abnormal [facility] Interpretation and review of laboratory results Abnormal [facility] PROTEIN ELECTRO., SERUMon PROTEIN ELECTRO., SERUM SEE BELOW Normal [facility] Comment on above: Result Comment: Tota [...] See Note Authorized individuals can access the [facility] Enhanced Report using the following link: [email or web address] Performed By: [facility] [address] [place] [address] Maintenance Shop Clerk: Sunny Roman MD, PhD CLIA Number: [id number] Performed By: #### C CANDY, WSR #### [place] [address] SCAN OF BLOOD SMEARon 2023 SCAN OF BLOOD SMEAR see below Normal [facility] Comment on above: Criteria Exceeded; S can of Differential Slide [place] [address] Result Comment: Crit errj Exceeded; Scan of Differential Slide Performed Performed By: #### C RP, WSR #### [place] [address] SED RATEon 02-29-2024 SED RATE 10 mm/hr Normal 0-10 [facility] Comment on above: Performed By: #### C RP, WSR #### [place] [address] ANION GAPon 02-28-2024 Anion gap [Moles/Vol] 14.0 mmol/L Normal 8.0-16.0 [facility] Comment on above: Result Comment: ANIO N GAP = Sodium -(Chloride + CO2) Performed By: #### M MMP, LPBM2, CRBM2 #### [facility] [address] [facility] [address] APTTon 02-28-2024 aPTT Coag (Bld) [Time] 24.6 s Normal 22.0-38.0 [facility] Comment on above: Result Comment: Ther apeutic Heparin Reference Range= 60-95 seconds (corresponds to 0.3 to 0.7 u/mL Anti-Xa factor activity) Performed By: #### M MMP, LPBM2, CRBM2 #### [facility] [address] [facility] [address] Anion Gapon 02-28-2024 Anion gap [Moles/Vol] 14.0 mmol/L 8.0 - 16.0 meq/L [facility] Comment on above: ANION GAP = Sodium - (Chloride + CO2) Performed at [facility] [address] [place] [address] CBC WITH DIFFERENTIALon 01-31 ABS BASOPHILS 0.0 thou/mm3 Normal 0.0-0.1 [facility] Comment on above: Performed By: #### M MMP, LPBM2, CRBM2 #### [facility] [address] [place] [address] ABS EOSINOPHILS 0.0 thou/mm3 Normal 0.0-0.4 [facility] Comment on above: Performed By: #### M MMP, LPBM2, CRBM2 #### [facility] [address] [place] [address] ABS IMMATURE GRANS (IG) 0.03 thou/mm3 Normal 0.00-0.07 [facility] Comment on above: Performed By: #### M MMP, LPBM2, CRBM2 #### [facility] [address] [place] [address] ABS LYMPHOCYTES 0.4 thou/mm3 Low 1.0-4.8 [facility] Comment on above: Performed By: #### M MMP, LPBM2, CRBM2 #### [facility] [address] [place] [address] ABS MONOCYTES 0.2 thou/mm3 Low 0.4-1.3 [facility] Comment on above: Performed By: #### M MMP, LPBM2, CRBM2 #### [facility] [address] [place] [address] ABS NEUTROPHILS 1.6 thou/mm3 Low 1.8-7.7 [facility] Comment on above: Performed By: #### M MMP, LPBM2, CRBM2 #### [facility] [address] [place] [address] Basophils/100 WBC (Bld) 1.7 % Normal [facility] Comment on above: Performed By: #### M MMP, LPBM2, CRBM2 #### [facility] [address] [place] [address] Eosinophils/100 WBC (Bld) 0.9 % Normal [facility] Comment on above: Performed By: #### M MMP, LPBM2, CRBM2 #### [facility] [address] [facility] [place] [address] Erythrocyte distribution width (RBC) [Ratio] 12.2 % Normal 11.5-14.5 [facility] Comment on above: Performed By: #### M MMP, LPBM2, CRBM2 #### [facility] [address] [facility] [place] [address] Hematocrit (Bld) [Volume fraction] 39.2 % Low 42.0-52.0 [facility] Comment on above: Performed By: #### M MMP, LPBM2, CRBM2 #### [facility] [address] [facility] [place] [address] Hemoglobin (Bld) [Mass/Vol] 13.1 g/dL Low 14.0-18.0 [facility] Comment on above: Performed By: #### M MMP, LPBM2, CRBM2 #### [facility] [address] [facility] [place] [address] IMMATURE GRANS (IG) 1.3 % Normal [facility] Comment on above: Performed By: #### M MMP, LPBM2, CRBM2 #### [facility] [address] [facility] [place] [address] Lymphocytes/100 WBC (Bld) 17.7 % Normal [facility] Comment on above: Performed By: #### M MMP, LPBM2, CRBM2 #### [facility] [address] [facility] [place] [address] MCH (RBC) [Entitic mass] 30.2 pg Normal 26.0-33.0 [facility] Comment on above: Performed By: #### M MMP, LPBM2, CRBM2 #### [facility] [address] [facility] [place] [address] MCHC (RBC) [Mass/Vol] 33.4 g/dL Normal 32.2-35.5 [facility] Comment on above: Performed By: #### M MMP, LPBM2, CRBM2 #### [facility] [address] [facility] [place] [address] MCV (RBC) [Entitic vol] 90.3 fL Normal 80.0-94.0 [facility] Comment on above: Performed By: #### M MMP, LPBM2, CRBM2 #### [facility] [address] [facility] [address] Monocytes/100 WBC (Bld) 8.2 % Normal [facility] Comment on above: Performed By: #### M MMP, LPBM2, CRBM2 #### [facility] [address] [facility] [address] Neutrophils/100 WBC (Bld) 70.2 % Normal [facility] Comment on above: Performed By: #### M MMP, LPBM2, CRBM2 #### [facility] [address] [facility] [address] NRBC 0 /100 wbc Normal [facility] Comment on above: Performed By: #### M MMP, LPBM2, CRBM2 #### [facility] [address] [facility] [address] PLATELET 107 thou/mm3 Low 130-400 [facility] Comment on above: Performed By: #### M MMP, LPBM2, CRBM2 #### [facility] [address] [facility] [address] Platelet mean volume (Bld) [Entitic vol] 10.7 fL Normal 9.4-12.4 [facility] Comment on above: Performed By: #### M MMP, LPBM2, CRBM2 #### [facility] [address] [facility] [address] RBC 4.34 mill/mm3 Low 4.70-6.10 [facility] Comment on above: Performed By: #### M MMP, LPBM2, CRBM2 #### [facility] [address] [facility] [address] RDW-SD 40.4 fL Normal 35.0-45.0 [facility] Comment on above: Performed By: #### M MMP, LPBM2, CRBM2 #### [facility] [address] [facility] [address] WBC 2.3 thou/mm3 Low 4.8-10.8 [facility] Comment on above: Performed By: #### M MMP, LPBM2, CRBM2 #### [facility] [address] [facility] [address] CBC with Auto Differentialon 02-28-2024 Basophils (Bld) [...] (Bld) [Ratio] 0 % /100 wbc [facility] Comment on above: Performed at [facility] [address] [place] [address] Platelets (Bld) [#/Vol] 107 10*3/uL Low [facility] RBC (Bld) [#/Vol] 4.34 10*6/uL Low [facility] WBC (Bld) [#/Vol] 2.3 10*3/uL Low [facility] COMP. METABOLIC PANELon 01-31 0 Albumin [Mass/Vol] 3.6 g/dL Normal 3.5-5.1 [facility] Comment on above: Performed By: #### M MMP, LPBM2, CRBM2 #### [facility] [address] [facility] [place] [address] ALP [Catalytic activity/Vol] 85 U/L Normal 38-126 [facility] Comment on above: Performed By: #### M MMP, LPBM2, CRBM2 #### [facility] [address] [facility] [place] [address] ALT [Catalytic activity/Vol] 39 U/L Normal 11-66 [facility] Comment on above: Performed By: #### M MMP, LPBM2, CRBM2 #### [facility] [address] [facility] [place] [address] AST [Catalytic activity/Vol] 45 U/L High 5-40 [facility] Comment on above: Performed By: #### M MMP, LPBM2, CRBM2 #### [facility] [address] [facility] [address] Bilirubin [Mass/Vol] 0.8 mg/dL Normal 0.3-1.2 [facility] Comment on above: Performed By: #### M MMP, LPBM2, CRBM2 #### [facility] [address] [place] [address] Calcium [Mass/Vol] 8.5 mg/dL Normal 8.5-10.5 [facility] Comment on above: Performed By: #### M MMP, LPBM2, CRBM2 #### [facility] [address] [place] [address] Chloride [Moles/Vol] 101 mmol/L Normal 98-111 [facility] Comment on above: Performed By: #### M MMP, LPBM2, CRBM2 #### [facility] [address] [place] [address] CO2 [Moles/Vol] 25 mmol/L Normal 23-33 [facility] Comment on above: Performed By: #### M MMP, LPBM2, CRBM2 #### [facility] [address] [facility] [place] [address] Creatinine [Mass/Vol] 1.2 mg/dL Normal 0.4-1.2 [facility] Comment on above: Performed By: #### M MMP, LPBM2, CRBM2 #### [facility] [address] [place] [address] Glucose [Mass/Vol] 94 mg/dL Normal 70-108 [facility] Comment on above: Performed By: #### M MMP, LPBM2, CRBM2 #### [facility] [address] [facility] [place] [address] POTASSIUM WITH REFLEX MG 4.1 meq/L Normal 3.5-5.2 [facility] Comment on above: Performed By: #### M MMP, LPBM2, CRBM2 #### [facility] [address] [place] [address] Protein [Mass/Vol] 6.2 g/dL Normal 6.1-8.0 [facility] Comment on above: Performed By: #### M MMP, LPBM2, CRBM2 #### [facility] [address] [facility] [place] [address] Sodium [Moles/Vol] 140 mmol/L Normal 135-145 [facility] Comment on above: Performed By: #### M MMP, LPBM2, CRBM2 #### [facility] [address] [facility] [place] [address] Urea nitrogen [Mass/Vol] 15 mg/dL Normal 7-22 [facility] Comment on above: Performed By: #### M MMP, LPBM2, CRBM2 #### [facility] [address] [facility] [address] Comprehensive metabolic 2000 panelon 02-28-2024 Albumin BCG dye [Mass/Vol] 3.6 g/dL 3.5 - 5.1 g/dL [facility] ALP [Catalytic activity/Vol] 85 U/L 38 - 126 U/L [facility] ALT No additional P-5'-P [Catalytic activity/Vol] 39 U/L 11 - 66 U/L [facility] Comment on above: Performed at [facility] [address] [place] [address] AST [Catalytic activity/Vol] 45 U/L High 5 - 40 U/L [facility] Bilirubin [Mass/Vol] 0.8 mg/dL 0.3 - 1.2 mg/dL [facility] Calcium [Mass/Vol] 8.5 mg/dL 8.5 - 10. 5 mg/dL [facility] Chloride [Moles/Vol] 101 mmol/L 98 - 111 meq/L [facility] CO2 [Moles/Vol] 25 mmol/L 23 - 33 meq/L [facility] Creatinine [Mass/Vol] 1.2 mg/dL 0.4 - 1.2 mg/dL [facility] Glucose [Mass/Vol] 94 mg/dL 70 - 108 mg/dL [facility] Interpretation and review of laboratory results Abnormal [facility] Potassium [Moles/Vol] 4.1 mmol/L 3.5 - 5.2 meq/L [facility] Protein [Mass/Vol] 6.2 g/dL 6.1 - 8.0 g/dL [facility] Sodium [Moles/Vol] 140 mmol/L 135 - 145 meq/L [facility] Urea nitrogen [Mass/Vol] 15 mg/dL 7 - 22 mg/dL [facility] EKG 12 Leadon 02-28-2024 Atrial Rate 91 BPM [facility] P Anatone 69 degrees [facility] P-R Interval 142 ms [facility] Q-T Interval 360 ms [facility] Q[facility] Duration 100 ms [facility] QTc Calculation (Bazett) 442 ms [facility] R Anatone 70 degrees [facility] T Anatone 25 degrees [facility] Ventricular Rate 91 BPM [facility] Normal sinus rhythm Incomplete right bundle branch block Nonspecific T wave abnormality Abnormal ECG When compared with ECG of 28-FEB-2024 16:05, No significant change was found Confirmed by Arben Mercado ([id number]) on 02/28/2024 8:19:15 PM [facility] STR MUSE Unknown, Provider, M D - 02/28/2024 Normal sinus rhythm Incomplete right bundle branch block Nonspecific T wave abnormality Abnormal ECG When compared with ECG of 28-FEB-2024 16:05, No significant change was found Confirmed by Arben Mercado ([id number]) on 02/28/2024 8:19:15 PM [facility] Normal sinus rhythm Incomplete right bundle branch block Nonspecific ST and T wave abnormality Abnormal ECG No previous ECGs available Clinical correlation is indicated Confirmed by Arben Mercado ([id number]) on 02/28/2024 7:52:29 PM [facility] STR MUSE Unknown, Provider, M D - 02/28/2024 Normal sinus rhythm Incomplete right bundle branch block Nonspecific ST and T wave abnormality Abnormal ECG No previous ECGs available Clinical correlation is indicated Confirmed by Arben Mercado ([id number]) on 02/28/2024 7:52:29 PM [facility] EKG 12 LeadOrdered By: Mekei kenya Unknown on 02-28-2024 Atrial Rate 78 BPM [facility] Work Phone: P Anatone 56 degrees [facility] Work Phone: P-R Interval 154 ms [facility] Work Phone: Q-T Interval 386 ms [facility] [employer] Work Phone: QRS Duration 102 ms [facility] [employer] Work Phone: QTc Calculation (Bazett) 440 ms [facility] [employer] Work Phone: R Anatone 63 degrees [employer] Work Phone: T Anatone 19 degrees [employer] Work Phone: Ventricular Rate 78 BPM [facility] [employer] Work Phone: [facility] [employer] Work Phone: EKG 12-LEADon 02-28-2024 EKG 12-LEAD 91 91 142 100 360 442 69 70 25 Normal sinus rhythm Incomplete right bundle branch block Nonspecific T wave abnormality Abnormal ECG When compared with ECG of 28-FEB-2024 16:05, No significant change was found Confirmed by Arben Mercaod ([id number]) on 02/28/2024 8:19:15 PM [email or web address] RetrieveTestByDateTime ?CcoxnunJC=[id number]&D ate=28-02-2024&Time=20 %3a02%3a02%3a00&TestTy pe=ECG&Site=3&OutputTy pe=PDF&Ext=PDF Normal [facility] EKG 12-LEAD 78 78 154 102 386 440 56 63 19 Normal sinus rhythm Incomplete right bundle branch block Nonspecific ST and T wave abnormality Abnormal ECG No previous ECGs available Clinical correlation is indicated Confirmed by Arbne Mercado ([id number]) on 02/28/2024 7:52:29 PM [email or web address] RetrieveTestByDateTime ?QpzfmurLU=[id number]&D ate=28-02-2024&Time=16 %3a05%3a49%3a00&TestTy pe=ECG&Site=3&OutputTy pe=PDF&Ext=PDF Normal [facility] EKG Rhythm Stripon PACEART Sakti3 GFR, ESTIMATEDon 02-28-2024 GFR/1.73 sq M.predicted MDRD (S/P/Bld) [Vol rate/Area] 83 mL/min/{1.73_m2} Normal >60 [facility] Comment on above: Pediatric calculator link [...] that affects renal tubular secretion. Performed at [place] [address] Result Comment: Pedi atric calculator link https://www.kidney.org/professionals/kdoqi/gfr_calculatorped [...] M MMP, LPBM2, CRBM2 #### [facility] [address] [facility] [address] INR Coag (PPP) [Relative kurt e]on 02-28-2024 [facility] Influenza virus A and B RNA and SARS-CoV-2 (COVID-19) N gene panel MARIKA+probe (Resp)on 02-28-2024 FLUAV RNA MARIKA+probe Ql (Resp) Not detected NOT DETECTED [facility] FLUBV RNA MARIKA+probe Ql (Resp) Not detected NOT DETECTED [facility] Comment on above: Performed at [facility] [address] [place] [address] SARS-CoV-2 (COVID-19) RNA MARIKA+probe Ql (Resp) Not detected NOT DETECTED [facility] Comment on above: Not Detected results [...] B in nasopharyngeal and nasal swab specimens. [facility] LDon 02-28-2024 LD 532 U/L High 100-190 [facility] Comment on above: Performed By: #### M MMP, LPBM2, CRBM2 #### [facility] [address] [facility] [address] Lactate Dehydrogenaseon 01-31 LDH Lactate to pyruvate reaction [Catalytic activity/Vol] 532 U/L High 100 - 190 U/L [facility] Comment on above: Performed at [email or web address] [address] [place] [address] MAGNESIUMon 02-28-2024 Magnesium [Mass/Vol] 2.3 mg/dL Normal 1.6-2.4 [facility] Comment on above: Performed By: #### C VFLU #### [facility] [address] [place] [address] MR Brain WO and W contrast I Von 02-28-2024 Radiology Study observation (narrative) [facility] Magnesiumon 02-28-2024 Magnesium [Mass/Vol] 2.3 mg/dL 1.6 - 2.4 mg/dL [facility] Comment on above: Performed at [email or web address] [address] [place] [address] Magnesium [Mass/Vol]on 02-27 [facility] No Panel Informationon 02-27 Interpretation and review of laboratory results Abnormal [facility] PROTHOMBIN TIMEon 02-28-2024 INR Coag (Bld) [Relative time] 1.13 {INR} Normal 0.85-1.13 [facility] Comment on above: Result Comment: ---- -----INDICATION INR Reference Range DVT, PE, AF, AMI, tissue heart valve 2.0 to 3.0 Mechanical prosthetic valves 2.5 to 3.5 Performed By: #### M MMP, LPBM2, CRBM2 #### [facility] [address] [facility] [address] Protime-INRon 02-28-2024 INR Coag (PPP) [Relative time] 1.13 {INR} 0.85 - 1.13 [facility] Comment on above: ---------INDICATION- INR Reference Range DVT, PE, AF, AMI, tissue heart valve 2.0 to 3.0 Mechanical prosthetic valves 2.5 to 3.5 Performed at [facility] [address] [place] [address] RETICULOCYTE PANELon 024 ABS RETIC COUNT 47.0 thou/mm3 Normal 20.0-115.0 [facility] Comment on above: Performed By: #### M MMP, LPBM2, CRBM2 #### [facility] [address] [facility] [address] IMM RETIC FRACTION 18.5 % High 2.3-13.4 [facility] Comment on above: Performed By: #### M MMP, LPBM2, CRBM2 #### [facility] [address] [facility] [address] RETIC HEMOGLOBIN 29.0 pg Normal 28.2-35.7 [facility] Comment on above: Performed By: #### M MMP, LPBM2, CRBM2 #### [facility] [address] [facility] [address] RETICULOCYTES 1.1 % Normal 0.5-2.0 [facility] Comment on above: Performed By: #### M MMP, LPBM2, CRBM2 #### [facility] [address] [facility] [address] Reticulocyteson 02-28-2024 Hemoglobin Auto (Reticulocytes) [Entitic mass] 29.0 pg 28.2 - 35.7 pg [facility] Comment on above: Performed at [facility] [employer] [facility] [address] [place] [address] Immature reticulocytes/Total reticulocytes (Bld) 18.5 % High 2.3 - 13.4 % [facility] Interpretation and review of laboratory results Abnormal [facility] Reticulocytes (Bld) [#/Vol] 47.0 10*3/uL [facility] Reticulocytes/100 RBC (Bld) 1.1 % 0.5 - 2.0 % [facility] SARS-COV-2 & INFLUENZA A/[facility] 02-28-2024 INFLUENZA A, RT-PCR Not detected Normal NOT DETECTED [facility] Comment on above: Performed By: #### C VFLU #### [place] [address] INFLUENZA B, RT-PCR Not detected Normal NOT DETECTED [facility] Comment on above: Performed By: #### C VFLU #### [place] [address] SARS-CoV-2 (COVID-19) RNA MARIKA+probe Ql (Unsp spec) Not detected Normal NOT DETECTED [facility] Comment on above: Result Comment: Not [...] specimens. Performed By: #### C VFLU #### [address] [address] URIC ACIDon 02-28-2024 Urate [Mass/Vol] 7.6 mg/dL High 3.7-7.0 [facility] Comment on above: Performed By: #### M MMP, LPBM2, CRBM2 #### [facility] [address] [facility] [address] Uric Acidon 02-28-2024 Urate [Mass/Vol] 7.6 mg/dL High 3.7 - 7.0 mg/dL [facility] Comment on above: Performed at [facility] [facility] [address] [place] [address] VITAMIN B12 FOLATEon Cobalamin (Vitamin B12) [Mass/Vol] 734 pg/mL Normal 211-911 [facility] Comment on above: Performed By: #### C DMITRY, SCAN1 #### [place] [address] FOLATE 4.1 ng/mL Low 4.8-24.2 [facility] Comment on above: Performed By: #### C DMITRY, SCAN1 #### [place] [address] Vitamin B12 & Folateon 02-27 Cobalamin (Vitamin B12) [Mass/Vol] 734 pg/mL 211 - 911 pg/mL [facility] Folate [Mass/Vol] 4.1 ng/mL Low 4.8 - 24.2 ng/mL [facility] Comment on above: Performed at [facility] [address] [place] [address] Interpretation and review of laboratory results Abnormal [facility] aPTT Coag (Bld) [Time]on aPTT Coag (PPP) [Time] 24.6 s [facility] Comment on above: Therapeutic Heparin Reference Range= 60-95 seconds (corresponds to 0.3 to 0.7 u/mL Anti-Xa factor activity) Performed at [address] 25-hydroxyvitamin D3 [Mass/V ol]on 02-27-2024 [facility] BLOOD SMEAR REVIEWon PATHOLOGIST REVIEWED Estefani FUNES Normal [facility] Comment on above: Result Comment: No s chistocytes seen Performed By: #### C RP, WSR #### [place] [address] SMEAR REVIEWED BY PATHOLOGIST see below Normal [facility] Comment on above: Result Comment: See Below Performed By: #### C RP, WSR #### [facility] [address] [place] [address] C-REACTIVE PROTEINon 024 C-REACTIVE PROTEIN 6.83 mg/dl High 0.00-1.00 [facility] Comment on above: Performed By: #### C RP, WSR #### [facility] [address] [place] [address] C-Reactive Proteinon 024 CRP [Mass/Vol] 6.83 mg/dl High 0.00 - 1.00 mg/dl [facility] Comment on above: Performed at [facility] [address] [place] [address] CALCIUM (IONIZED) * WBon CALCIUM (IONIZED) * WB 1.11 mmol/L Low 1.12-1.32 [facility] Comment on above: Performed By: #### C BCWD, SCAN1 #### [facility] [address] [address] CREATININE (URINE)on 024 Creatinine (U) [Mass/Vol] 37.4 mg/dL Normal [facility] Comment on above: Performed By: #### C RP, WSR #### [facility] [address] [address] CRP [Mass/Vol]on 02-27-2024 Interpretation and review of laboratory results Abnormal [facility] Calcium, Ionizedon 4 Calcium.ionized ISE (Bld) [Moles/Vol] 1.11 mmol/L Low 1.12 - 1.32 mmol/L [facility] Comment on above: Performed at [facility] [address] [place] [address] Calcium.ionized ISE (Bld) [M oles/Vol]on 02-27-2024 Interpretation and review of laboratory results Abnormal [facility] Creatinine, Random Urineon 1 Creatinine (U) [Mass/Vol] 37.4 mg/dL [facility] Comment on above: Performed at [facility] [address] [place] [address] DRUG ABUSE SCREENon 02-27-20 24 AMPHETAMINE/METHAMP H Negative Normal NEGATIVE [facility] Comment on above: Performed By: #### C RP, WSR #### [facility] [address] [place] [address] BARBITURATE Negative Normal NEGATIVE [facility] Comment on above: Performed By: #### C RP, WSR #### [facility] [address] [place] [address] Benzodiazepines Ql (U) Negative Normal NEGATIVE [facility] Comment on above: Performed By: #### C RP, WSR #### [facility] [address] [place] [address] Cannabinoids Screen Ql (U) Positive Normal NEGATIVE [facility] Comment on above: Performed By: #### C RP, WSR #### [facility] [address] [place] [address] COCAINE METABOLITE Negative Normal NEGATIVE [facility] Comment on above: Performed By: #### C RP, WSR #### [facility] [address] [place] [address] FENTANYL Negative Normal NEGATIVE [facility] Comment on above: Result Comment: A [...] By: #### C RP, WSR #### [facility] [address] [place] [address] Opiates Ql (U) Negative Normal NEGATIVE [facility] Comment on above: Performed By: #### C RP, WSR #### [facility] [address] [place] [address] OXYCODONE Negative Normal NEGATIVE [facility] Comment on above: Performed By: #### C RP, WSR #### [facility] [address] [place] [address] Phencyclidine Ql (U) Negative Normal NEGATIVE [facility] Comment on above: Performed By: #### C AIDA GUPTA #### [facility] [address] [place] [address] EEG 24 houron 02-27-2024 Rm Davis MD 02/27/2024 11:51 AM LONG-TERM EEG-VIDEO MONITORING CLINICAL NEUROPHYSIOLOGY LABORATORY DEPARTMENT OF NEUROLOGY [facility] Patient: Ethan Donald Age: 33 y.o. [...] mg SubCUTAneous Daily Jenny Gunter APRN - SANJU 40 mg at 02/27/24 0814 ondansetron (ZOFRAN-ODT) disintegrating tablet 4 mg 4 mg Oral Q8H PRN Jenny Gunter APRN - CNP Or ondansetron (ZOFRAN) injection 4 mg 4 mg IntraVENous Q6H PRN Lexus Gunterica Mally, [employer] 4 mg at 02/27/24 0815 polyethylene glycol (GLYCOLAX) packet 17 g 17 g Oral Daily PRN Gunter Jenny S [employer] acetaminophen (TYLENOL) tablet 650 mg 650 mg Oral Q6H PRN Lyric Jenny S, [employer] 650 mg at 02/27/24 0128 Or acetaminophen (TYLENOL) suppository 650 mg 650 mg Rectal Q6H PRN Gunter Jenny S, [employer] LORazepam (ATIVAN) injection 4 mg 4 mg IntraVENous Q5 Min PRN Jenny Gunter, [employer] nicotine (NICODERM CQ) 14 MG/24HR 1 patch 1 patch TransDERmal Daily Gunter Jenny Mally [employer] valproate (DEPACON) 1,500 mg in sodium chloride [...] behavior and electrographic findings with clinical correlation. [facility] M[facility] EEG 24 hourOrdered By: Rm Davis on 02-27-2024 [facility] Work Phone: EKG Rhythm Stripon 4 PACEART [facility] PACEART [facility] PACEART [facility] P[facility]ART [facility] HR 78 [employer] [facility] ESR Westergren method (Bld) [Velocity]on 02-27-2024 ESR (Bld) [Velocity] 9 mm/h [facility] Comment on above: Performed at [facility] [employer] [facility] [address] [place] [address] [place] [address] FIBRINOGENon 02-27-2024 FIBRINOGEN 402 mg/100ml Normal 155-475 [facility] Comment on above: Performed By: #### C BCWD, SCAN1 #### [employer] [address] [place] [address] Fibrinogenon 02-27-2024 Fibrinogen Coag (PPP) [Mass/Vol] 402 mg/dL [facility] Comment on above: Performed at [facility] [address] [place] [address] Fibrinogen Coag (PPP) [Mass/ Vol]on 02-27-2024 [facility] No Panel Informationon 02-26 [facility] OSMOLALITY URINEon 4 OSMOLALITY URINE see below Normal 250-750 [facility] Comment on above: Result Comment: Test was sent to an outside laboratory. Please refer to 'Reference' test. Performed By: #### C RP, WSR #### [employer] [address] [place] [address] Osmolality (U) [Osmolality]o n 02-27-2024 [facility] Osmolality, urineon 02-27-20 24 Osmolality (U) [Osmolality] see below [facility] Comment on above: Test was sent to an outside laboratory. Please refer to 'Reference' test. Performed at [facility] [employer] [facility] [address] [place] [address] PHOSPHORUSon 02-27-2024 Phosphate [Mass/Vol] 4.0 mg/dL Normal 2.4-4.7 [facility] Comment on above: Performed By: #### C BCWD, SCAN1 #### [facility] [address] [place] [address] POTASSIUM (URINE)on 02-27-20 POTASSIUM (URINE) 9.5 meq/l Normal [facility] Comment on above: Performed By: #### C RP, WSR #### [facility] [address] [place] [address] Path Review, Smearon REVIEWED BY Estefani FUNES [facility] Comment on above: No schistocytes seen Performed at [facility] [address] [place] [address] Smear Review see below [employer] Comment on above: See Below [facility] Phosphate [Mass/Vol]on 02-26 [facility] Phosphoruson 02-27-2024 Phosphate [Mass/Vol] 4.0 mg/dL 2.4 - 4.7 mg/dL [facility] [employer] Comment on above: Performed at [facility] [facility] [address] [place] [address] Potassium, urine, randomon 1 Potassium (U) [Moles/Vol] 9.5 mmol/L [facility] [employer] Comment on above: Performed at [facility] [facility] [address] [place] [address] REFERENCE SPECIMENon REFERENCE RANGE 50-1400 mOsm Normal [facility] TEST RESULT (WITH UNITS) 182 mOsm Normal [facility] ORIGINAL SAMPLE NUMBER [id number] Normal [facility] REFERENCE LOCATION see below Normal [facility] Comment on above: Result Comment: Perf ormed at [facility] [address] [place] [address] TEST(S) BEING PERFORMED URINE OSMO Normal [facility] Reference lab sampleon 02-26 ORIGINAL SAMPLE NUMBER [id number] [facility] [employer] REFERENCE LOCATION see below [facility] Comment on above: Performed at [facility] [address] [place] [address] Reference Range 50-1400 mOsm [facility] TEST RESULTS WITH UNITS 182 mOsm [facility] TEST(S) BEING PERFORMED URINE OSMO [facility] SED RATEon 02-27-2024 SED RATE 9 mm/hr Normal 0-10 [facility] Comment on above: Performed By: #### C CANDY, WSR #### [employer] [facility] [address] [place] [address] SODIUM (URINE)on 02-27-2024 Sodium (U) [Moles/Vol] mmol/L Normal [facility] Comment on above: Performed By: #### C RP, WSR #### [employer] [address] [place] [address] Sodium, urine, randomon 01-30 Sodium (U) [Moles/Vol] mmol/L meq/l [facility] Comment on above: Performed at [facility] [employer] [facility] [address] [place] [address] URINALYSIS W/ MICROon 2023 BACTERIA NONE SEEN Normal FEW/NONE SEEN [facility] Comment on above: Performed By: #### U AWM2 #### [employer] [address] [place] [address] CASTS NONE SEEN Normal NONE SEEN [facility] Comment on above: Performed By: #### U AWM2 #### [employer] [address] [place] [address] CASTS 2 NONE SEEN Normal [facility] Comment on above: Performed By: #### U AWM2 #### [employer] [address] [place] [address] Crystals LM Nom (Urine sed) NONE SEEN Normal NONE SEEN [facility] Comment on above: Performed By: #### U AWM2 #### [employer] [address] [place] [address] EPITHELIAL NONE SEEN Normal 3-5/hpf [facility] Comment on above: Performed By: #### U AWM2 #### [employer] [address] [place] [address] MISCELLANEOUS 2 NONE SEEN Normal [facility] Comment on above: Performed By: #### U AWM2 #### [facility] [address] [place] [address] RBC NONE SEEN Normal 0-2/hpf [facility] Comment on above: Performed By: #### U AWM2 #### [facility] [address] [place] [address] RENAL EPITHELIAL NONE SEEN Normal NONE SEEN [facility] Comment on above: Performed By: #### U AWM2 #### [facility] [address] [place] [address] WBC NONE SEEN Normal 0-4/hpf [facility] Comment on above: Performed By: #### U AWM2 #### [facility] [address] [place] [address] YEAST NONE SEEN Normal NONE SEEN [facility] Comment on above: Performed By: #### U AWM2 #### [facility] [address] [place] [address] [place] [address] Bilirubin Ql (U) Negative Normal NEGATIVE [facility] Comment on above: Performed By: #### U AWM2 #### [facility] [address] [place] [address] CHARACTER CLEAR Normal CLR-SL.CLOUD [facility] Comment on above: Performed By: #### U AWM2 #### [facility] [address] [place] [address] Color (U) YELLOW Normal YELLOW-STRAW [facility] Comment on above: Performed By: #### U AWM2 #### [facility] [address] [place] [address] [place] [address] Glucose Ql (U) Negative Normal NEGATIVE [facility] Comment on above: Performed By: #### U AWM2 #### [facility] [address] [place] [address] Hemoglobin Ql (U) Negative Normal NEGATIVE [facility] Comment on above: Performed By: #### U AWM2 #### [facility] [address] [place] [address] Ketones Ql (U) Negative Normal NEGATIVE [facility] Comment on above: Performed By: #### U AWM2 #### [facility] [address] [place] [address] LEUKOCYTES Negative Normal NEGATIVE [facility] Comment on above: Performed By: #### U AWM2 #### [facility] [address] [place] [address] Nitrite Ql (U) Negative Normal NEGATIVE [facility] Comment on above: Performed By: #### U AWM2 #### [facility] [address] [place] [address] pH (U) 6.5 [pH] Normal 5.0 - 9.0 [facility] Comment on above: Performed By: #### U AWM2 #### [facility] [address] [place] [address] Protein Ql (U) Negative Normal NEGATIVE [facility] Comment on above: Performed By: #### U AWM2 #### [address] [address] Specific gravity (U) [Rel density] 1.007 Normal 1.002-1.030 [facility] Comment on above: Performed By: #### U AWM2 #### [facility] [address] [place] [address] Urobilinogen Qn (U) 1.0 {Butch'U}/dL Normal 0.0 - 1. 0 [facility] Comment on above: Performed By: #### U AWM2 #### [address] [address] Urinalysis dipstick W Reflex Microscopic panel (U)on 02-27-2024 Bacteria, UA NONE SEEN FEW/NONE SEEN [facility] Bilirubin Ql (U) Negative NEGATIVE [facility] Casts LM.LPF (Urine sed) [#/Area] NONE SEEN /lpf [facility] Character (U) CLEAR CLR-SL.CLOUD [facility] Charcoal LM Ql (Urine sed) NONE SEEN [facility] Comment on above: Performed at [facility] [address] [place] [address] Color (U) YELLOW YELLOW-STRAW [facility] Crystals LM Ql (Urine sed) NONE SEEN NONE SEEN [facility] Epithelial Cells, UA NONE SEEN 3-5/hpf /hpf [facility] Epithelial cells.renal LM.HPF (Urine sed) [#/Area] NONE SEEN NONE SEEN [facility] Fungi.yeastlike LM Ql (Urine sed) NONE SEEN NONE SEEN [facility] Glucose Auto test strip Ql (U) Negative NEGATIVE mg/dl [facility] Hemoglobin Auto test strip Ql (U) Negative NEGATIVE [facility] Ketones Auto test strip Ql (U) Negative NEGATIVE [facility] Leukocyte esterase Auto test strip Ql (U) Negative NEGATIVE [facility] Nitrite Auto test strip Ql (U) Negative NEGATIVE [facility] pH (U) 6.5 [pH] 5.0 - 9.0 [facility] Protein (U) [Mass/Vol] Negative NEGATIVE mg/dl [facility] RBC LM.HPF (Urine sed) [#/Area] NONE SEEN 0-2/hpf /hpf [facility] Specific [place], UA 1.007 1.002 - 1.030 [facility] Urobilinogen, Urine 1.0 [facility] WBC LM.HPF (Urine sed) [#/Area] NONE SEEN 0-4/hpf /hpf [facility] Urine Drug Screenon 02-27-20 24 Amphetamines Screen Ql (U) Negative NEGATIVE [facility] Barbiturates Screen Ql (U) Negative NEGATIVE [facility] Benzodiazepines Ql (U) Negative NEGATIVE [facility] Benzoylecgonine Screen Ql (U) Negative NEGATIVE [facility] Cannabinoids Screen Ql (U) Positive NEGATIVE [facility] Fentanyl Negative NEGATIVE [facility] Comment on above: A Negative result for [...] are for medical use only. Performed at [facility] [address] [place] [address] Opiates Screen Ql (U) Negative NEGATIVE [facility] Oxycodone Negative NEGATIVE [facility] Phencyclidine Ql (U) Negative NEGATIVE [facility] VITAMIN D TOTAL 25 (OH)on VITAMIN D TOTAL 25 (OH) 32 ng/ml Normal 30-100 [facility] Comment on above: Result Comment: Lashanda min D Status Range Deficiency <20 ng/ml Insuffiency 20-30 ng/ml Sufficiency 30-100 ng/ml Toxicity >100 ng/ml Performed By: #### C VFLU #### [address] [address] Vitamin D 25 Hydroxyon 02-26 25-hydroxyvitamin D3 [Mass/Vol] 32 ng/mL 30 - 100 ng/ml [facility] Comment on above: Vitamin D Status Ran ge Deficiency <20 ng/ml Insuffiency 20-30 ng/ml Sufficiency 30-100 ng/ml Toxicity >100 ng/ml Performed at [address] [address] Basic Metabolic Profon 02-25 Anion gap [Moles/Vol] 15 mmol/L Normal - [facility] Comment on above: Performed By: #### T MARY CHEN, BMP #### [facility] [address] [place] [address] Denial Management Representative: Ramo Jesus MD BUN/CRE Ratio 11 Normal - [facility] Comment on above: Performed By: #### T MARY CHEN, BMP #### [facility] [address] [place] [address] Denial Management Representative: Ramo Jesus MD Calcium [Mass/Vol] 9.3 mg/dL Normal 8.6-10.4 [facility] Comment on above: Performed By: #### T MARY CHEN, BMP #### [facility] [address] [place] [address] Denial Management Representative: Ramo Jesus MD Chloride [Moles/Vol] 97 mmol/L Low 98-107 [facility] Comment on above: Performed By: #### T MARY CHEN, BMP #### [facility] [address] [place] [address] Denial Management Representative: Ramo Jesus MD CO2 [Moles/Vol] 23 mmol/L Normal 20-31 [facility] Comment on above: Performed By: #### T MARY CHEN, BMP #### [facility] [address] [place] [address] Denial Management Representative: Ramo Jesus MD Creatinine [Mass/Vol] 1.2 mg/dL Normal 0.70-1.20 [facility] Comment on above: Performed By: #### T MARY CHEN, BMP #### [facility] [address] [place] [address] Denial Management Representative: Ramo Jesus MD GFR/1.73 sq M.predicted among non-blacks MDRD (S/P/Bld) [Vol rate/Area] 80 mL/min/{1.73_m2} Normal >60 [facility] Comment on above: Result Comment: These [...] By: #### T MARY CHEN, BMP #### [facility] [address] [place] [address] Denial Management Representative: Ramo Jesus MD Glucose [Mass/Vol] 100 mg/dL High 74-99 [facility] Comment on above: Performed By: #### T MARY CHEN, BMP #### [facility] [address] [place], [place] [address] Denial Management Representative: Ramo Jesus MD Potassium [Moles/Vol] 3.3 mmol/L Low 3.7-5.3 [facility] Comment on above: Performed By: #### MARY RODAS, BMP #### [address] [place], [facility] Denial Management Representative: Ramo Jesus MD Sodium [Moles/Vol] 135 mmol/L Low 136-145 [facility] Comment on above: Performed By: #### MARY RODAS BMP #### [address] [place], [place] [address]36[address] Denial Management Representative: Ramo Jesus MD Urea nitrogen [Mass/Vol] 13 mg/dL Normal 6-20 [facility] Comment on above: Performed By: #### MARY RODAS, BMP #### [address] [place], [place] 89[address]83 Denial Management Representative: Ramo Jesus MD C-Reactive Proteinon 024 CRP [Mass/Vol] 81.9 mg/L High 0.0-5.0 [facility] Comment on above: Performed By: #### S ED, CRP #### [address] [place], [facility] Denial Management Representative: Ramo Jesus MD CBC with Diffon 02-26-2024 Abs. Basophil 0.04 k/uL Normal 0.0-0.2 [facility] Comment on above: Performed By: #### T MARY CHEN, BMP #### [address] [place], [place] 46[address] Denial Management Representative: Ramo Jesus MD Abs.Imm.Granulocyte 0.04 k/uL Normal 0.00-0.30 [facility] Comment on above: Performed By: #### MARY RODAS, BMP #### [facility] [address] [place], [facility] Denial Management Representative: Ramo Jesus MD Abs.Neutrophil (Seg) 2.58 k/uL Normal 1.50-8.10 [facility] Comment on above: Performed By: #### T MARY CHEN, BMP #### [facility] [address] [place], [place] [address] Denial Management Representative: Ramo Jesus MD Basophils/100 WBC (Bld) 1 % Normal 0-2 [facility] Comment on above: Performed By: #### T MARY CHEN, BMP #### [address] [place], [facility] Denial Management Representative: Ramo Jesus MD Eosinophils (Bld) [#/Vol] 0.08 10*3/uL Normal 0.00-0.44 [facility] Comment on above: Performed By: #### T MARY CHEN, BMP #### [address] [place], [place] [address] Denial Management Representative: Ramo Jesus MD Eosinophils/100 WBC (Bld) 2 % Normal 1-4 [facility] Comment on above: Performed By: #### T MARY CHEN, BMP #### [address] [place], [facility] Denial Management Representative: Ramo Jesus MD Immature granulocytes/100 WBC (Bld) 1 % High 0 [facility] Comment on above: Performed By: #### T MARY CHEN, BMP #### [address] [place], [facility] Denial Management Representative: Ramo Jesus MD Lymphocytes (Bld) [#/Vol] 1.03 10*3/uL Low 1.10-3.70 [facility] Comment on above: Performed By: #### T MARY CHEN, BMP #### [address] [place], [place] 8247183 Denial Management Representative: Ramo Jesus MD Lymphocytes/100 WBC (Bld) 25 % Normal 24-43 [facility] Comment on above: Performed By: #### T MARY CHEN, BMP #### [facility] [address] [place], [place] 400[address] Denial Management Representative: Ramo Jesus MD Monocytes (Bld) [#/Vol] 0.33 10*3/uL Normal 0.10-1.20 [facility] Comment on above: Performed By: #### T MARY CHEN, BMP #### [facility] [address] [place] [id number] Denial Management Representative: Ramo Jesus MD Monocytes/100 WBC (Bld) 8 % Normal 3-12 [facility] Comment on above: Performed By: #### MARY RODAS, BMP #### [facility] [address] [place], [facility] Denial Management Representative: Ramo Jesus MD Morphology Gianni (Bld) [Interp] Normal Normal [facility] Comment on above: Performed By: #### T MARY CHEN, BMP #### [facility] [address] [place], [place] 1453083 Denial Management Representative: Ramo Jesus MD Neutrophil (Seg) 63 % Normal 36-65 [facility] Comment on above: Performed By: #### T MARY CHEN, BMP #### [facility] [address] [place], [place] 1782183 Denial Management Representative: Ramo Jesus MD Platelet, Fluoresc. 117 k/uL Low 138-453 [facility] Comment on above: Performed By: #### T MARY CHEN, BMP #### [facility] [address] [place], [place] [id number] Denial Management Representative: Ramo Jesus MD PLT, Immature Fract. 3.6 % Normal 1.1-10.3 [facility] Comment on above: Performed By: #### MARY RODAS, BMP #### [address] [place] [address] Denial Management Representative: Ramo Jesus MD Erythrocyte distribution width (RBC) [Ratio] 12.0 % Normal 11.8-14.4 [facility] Comment on above: Performed By: #### MARY RODAS, BMP #### [address] [place], [place] 0044083 Denial Management Representative: Ramo Jesus MD Hematocrit (Bld) [Volume fraction] 41.0 % Normal 40.7-50.3 [facility] Comment on above: Performed By: #### MARY RODAS, BMP #### [address] [place] [address] Denial Management Representative: Ramo Jesus MD Hemoglobin (Bld) [Mass/Vol] 14.7 g/dL Normal 13.0-17.0 [facility] Comment on above: Performed By: #### MARY RODAS, BMP #### [address] [place] [address] Denial Management Representative: Ramo Jesus MD MCH (RBC) [Entitic mass] 31.1 pg Normal 25.2-33.5 [facility] Comment on above: Performed By: #### MARY RODAS, BMP #### [address] [place] [address] Denial Management Representative: Ramo Jesus MD MCHC (RBC) [Mass/Vol] 35.9 g/dL High 28.4-34.8 [facility] Comment on above: Performed By: #### MARY RODAS, BMP #### [address] [place] [address] Denial Management Representative: Ramo Jesus MD MCV (RBC) [Entitic vol] 86.9 fL Normal 82.6-102.9 [facility] Comment on above: Performed By: #### MARY RODAS, BMP #### [facility] [address] [place], [place] 7071283 Denial Management Representative: Ramo Jesus MD NRBC Automated 0.0 per 100 WBC Normal 0.0 [facility] Comment on above: Performed By: #### MARY RODAS, BMP #### [facility] [address] [place] [address] Denial Management Representative: Ramo Jesus MD Platelet Count See Reflexed IPF Result Normal 138-453 [facility] Comment on above: Performed By: #### MARY RODAS, BMP #### [address] [place] [address] Denial Management Representative: Ramo Jesus MD RBC (Bld) [#/Vol] 4.72 10*6/uL Normal 4.21-5.77 [facility] Comment on above: Performed By: #### MARY RODAS, BMP #### [address] [place], [facility] Denial Management Representative: Ramo Jesus MD WBC (Bld) [#/Vol] 4.1 10*3/uL Normal 3.5-11.3 [facility] Comment on above: Performed By: #### MARY RODAS, BMP #### [address] [place], [facility] Denial Management Representative: Ramo Jesus MD CT HEAD WO CONTRASTon [...] Sam Rockwell DO 02/26/24 Final result Normal [facility] CTA HEAD NECK W CONTRASTon 1 CTA [...] Sam Rockwell DO 02/26/24 Final result Normal [facility] Glucose, Whole Bloodon 02-25 Glucose [Mass/Vol] 105 mg/dL High 74-100 [facility] Liver Profileon 02-26-2024 Albumin [Mass/Vol] 4.1 g/dL Normal 3.5-5.2 [facility] Comment on above: Performed By: #### L IVP ####[address] , [place] 1432[address] Lab Director: Ramo Jesus MD Albumin/Glob Ratio 1.3 Normal 1.0-2.5 [facility] Comment on above: Performed By: #### L IVP ####[address] , [place] 5658683 Lab Director: Ramo Jesus MD Alkaline Phos 97 U/L Normal 40-129 [facility] Comment on above: Performed By: #### L IVP ####[address] , [place] 5406983 Lab Director: Ramo Jesus MD ALT [Catalytic activity/Vol] 45 U/L Normal 10-50 [facility] Comment on above: Performed By: #### L IVP ####[address] , [place] 6252383 Lab Director: Ramo Jesus MD AST [Catalytic activity/Vol] 54 U/L High 10-50 [facility] Comment on above: Performed By: #### L IVP ####[address] , [place] 67[address]83 Lab Director: Ramo Jesus MD Bilirubin [Mass/Vol] 1.1 mg/dL Normal 0.00-1.20 [facility] Comment on above: Performed By: #### L IVP ####[address] , [place] [id number] Lab Director: Ramo Jesus MD Bilirubin, Indirect 0.6 mg/dL Normal 0.0-1.0 [facility] Comment on above: Performed By: #### L IVP ####[address] , [place] 2753683 Lab Director: Ramo Jesus MD Bilirubin.indirect [Mass/Vol] 0.5 mg/dL High 0.00-0.30 [facility] Comment on above: Performed By: #### L IVP ####[facility] [place] [address] Lab Director: Ramo Jesus MD Protein [Mass/Vol] 7.2 g/dL Normal 6.6-8.7 [facility] Comment on above: Performed By: #### L IVP ####[facility] [place] [address] Lab Director: Ramo Jesus MD Prolactinon 02-26-2024 Prolactin 4.70 ng/mL Normal 4.04-15.2 [facility] Comment on above: Result Comment: The presence of macroprolactin may cause interference in female patients with various endocrinological diseases or during . Performed By: #### P ROL #### [address] [id number] Denial Management Representative: Ra Kilpatrick MD Sedimentation Rateon 024 Sedimentation Rate 17 mm/Hr High 0-15 [facility] Comment on above: Performed By: #### S ED, CRP #### [facility] [address] [place] [address] Denial Management Representative: Ramo Jesus MD Troponinon 02-26-2024 Troponin, High Sens 9 ng/L Normal 0-22 [facility] Comment on above: Result Comment: High Sensitivity Troponin values cannot be compared with other Troponin methodologies. Performed By: #### T ROPI, CDP, BMP #### [facility] [address] [place] [address] Denial Management Representative: Ramo Jesus MD UA w/Reflex Cultureon 2023 Bilirubin, SemiQt,Ur Negative Normal NEG [facility] Comment on above: Performed By: #### U AX, UMICAO #### [facility] [address] [place] [address] Denial Management Representative: Ramo Jesus MD Blood, Urine Negative Normal NEG [facility] Comment on above: Performed By: #### U AX, UMICAO #### [facility] [address] [place] [address] Denial Management Representative: Ramo Jesus MD Clarity (U) Clear Normal CLEAR [facility] Comment on above: Performed By: #### U AX, UMICAO #### [facility] [address] [place], [place] 6[address]83 Denial Management Representative: Ramo Jesus MD Color (U) Yellow Normal YEL [facility] Comment on above: Performed By: #### U AX, UMICAO #### [facility] [address] [place], [place] 7625083 Denial Management Representative: Ramo Jesus MD Glucose Ql (U) Negative Normal NEG [facility] Comment on above: Performed By: #### U AX, UMICAO #### [facility] [address] [place] [address] [address] [place], [place] 7284583 Denial Management Representative: Ramo Jesus MD Ketones Ql (U) 2+ mg/dL Abnormal NEG [facility] Comment on above: Performed By: #### U AX, UMICAO #### [facility] [address] [place] [address] [place] [address] Denial Management Representative: Ramo Jesus MD Leukocyte esterase Test strip Ql (U) Negative Normal NEG [facility] Comment on above: Performed By: #### U AX, UMICAO #### [facility] [address] [place], [place] 378[address]83 Denial Management Representative: Ramo Jesus MD Nitrite,Ur Negative Normal [facility] Comment on above: Performed By: #### U AX, UMICAO #### [facility] [address] [place], [place] 7934883 Denial Management Representative: Ramo Jesus MD PH,Ur 6.0 Normal 5.0-9.0 [facility] Comment on above: Performed By: #### U AX, UMICAO #### [facility] [address] [place], [place] 1698383 Denial Management Representative: Ramo Jesus MD Protein Ql (U) Negative Normal NEG [facility] Comment on above: Performed By: #### U AX UMICAO #### [facility] [address] [place], [place] 1665683 Denial Management Representative: Ramo Jesus MD Spec. [place],Ur 1.010 Normal 1.010-1.020 [facility] Comment on above: Performed By: #### U AX UMICAO #### [address] [place], [place] 3697683 Denial Management Representative: Ramo Jesus MD Urobilinogen,Ur Normal Normal 0.0-1.0 [facility] Comment on above: Performed By: #### U AXROSANNAICAO #### [address] [place], [facility] Denial Management Representative: Ramo Jesus MD Urinalysis,Microon 4 Bacteria TRACE Abnormal NONE [facility] Comment on above: Performed By: #### U AX UMICAO ####[address] , [facility] Lab Director: Ramo Jesus MD Epithelial cells LM Ql (Urine sed) 0 TO 2 Normal 0-5 [facility] Comment on above: Performed By: #### U AX UMICAO ####[address] , [place] 39[address] Lab Director: Ramo Jesus MD Urine RBC's 0 TO 2 Normal 0-2 [facility] Comment on above: Performed By: #### U AX UMICAO ####[facility] [place] [address] lab Director: Ramo Jesus MD Urine WBC's 0 TO 2 Normal 0-5 [facility] Comment on above: Performed By: #### U AX, STEFANIEO ####[address] [place] [address] lab Director: Ramo Jesus MD XR CHEST PORTABLEon 02-26-20 XR CHEST PORTABLE EXAMINATION: ONE XRAY VIEW OF THE CHEST 02/26/2024 1:06 pm COMPARISON: None. HISTORY: ORDERING SYSTEM PROVIDED HISTORY: syncope TECHNOLOGIST PROVIDED HISTORY: syncope 33-year-old male with syncope FINDINGS: AP portable view of the chest qualitative field project manager leads overlie the chest Trachea midline. No pneumothorax. No acute focal airspace consolidation or pleural effusions. Cardiac and mediastinal contours within normal limits. No acute osseous abnormality. IMPRESSION: No acute focal airspace consolidation or effusions. Interpreted by: Rubio Suarez MD Signed by: Rubio Suarez MD 02/26/24 Final result Normal [facility] OPERATIVE REPORTon OPERATIVE REPORT [address] [id number] OPERATIVE REPORT PATIENT NAME: ETHAN DONALD : 1990 MED REC NO: [id number] ROOM: ACCOUNT NO: [id number] ADMIT DATE: 03/13/2023 PROVIDER: Jon Reynoso DATE OF PROCEDURE: 03/13/2023 PREOPERATIVE DIAGNOSES: 1. Subluxing patella. 2. Chondromalacia. 3. Edroy-Schlatter disease. POSTOPERATIVE DIAGNOSES: 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 PROCEDURES PERFORMED: Arthroscopy of right knee with: 1. Chondroplasty. 2. Lateral release. 3. Mini arthrotomy with excision of Edroy-Schlatter ossicle. SURGEON: Dr. Jon Reynoso. ANESTHESIA: General. [...] tendon was then split longitudinally and the Edroy--Schlatter ossicle was removed from the tendon. X-ray was obtained to verify that all the Edroy--Schlatter ossicle had been removed. The tendon was then oversewn with 2-0 Vicryl interrupted ginncw-cd-zmlwn sutures. Skin margins were injected with 0.5% [...] in two weeks. JON REYNOSO PH/[id number] Doc#: [id number] CC: Normal [facility] XR KNEE RIGHT (1-2 VIEWS)on 03-13-2023 XR [...] Alfonso Charles MD 03/13/23 Final result Normal [facility] GROUP A STREP CULTUREon 07-30 S. pyogenes Ag Ql (Unsp spec) Culture Observations: NEGATIVE FOR GROUP A STREPTOCOCCUS. Normal [facility] [place] [facility] Comment on above: Performed By: #### S SHAGGY SUÁREZTCX #### [facility] [address] [place], [place] [address] Dr. Pratibha Stevenson STREPT SCREENon 08-11-2022 STREP SCREEN A Negative Normal NEGATIVE [facility] Comment on above: Performed By: #### S JOSE ARMANDO GRASTCX #### [facility] [address] [place] [address] Dr. Pratibha Stevenson AMYLASEon 07-23-2022 Amylase [Catalytic activity/Vol] 50 U/L Normal 25-115 [facility] Comment on above: Performed By: #### E RUR #### [facility] [address] [place] [address] Dr. Pratibha Stevenson CBC AUTO DIFFon 07-23-2022 BASO # 0.1 103/ul Normal 0.0-0.1 [facility] Comment on above: Performed By: #### L ACT #### [facility] [address] [place] [address] Dr. Pratibha Stevenson Basophils/100 WBC (Bld) 1.0 % Normal 0.2-2.0 [facility] Comment on above: Performed By: #### L ACT #### [facility] [address] [place] [address] Dr. Pratibha Stevenson EO # 0.1 103/ul Normal 0.0-0.7 [facility] Comment on above: Performed By: #### L ACT #### [facility] [address] [place] [address] Dr. Pratibha Stevenson Eosinophils/100 WBC (Bld) 1.7 % Normal 0.9-7.0 [facility] Comment on above: Performed By: #### L ACT #### [facility] [address] [place] [address] Dr. Pratibha Stevenson Erythrocyte distribution width (RBC) [Ratio] 12.1 % Normal 11.0-15.0 [facility] Comment on above: Performed By: #### L ACT #### [facility] [address] [place] [address] Dr. Pratibha Stevenson Hematocrit (Bld) [Volume fraction] 45.9 % Normal 42.0-54.0 [facility] Comment on above: Performed By: #### L ACT #### [facility] [address] [place] [address] Dr. Pratibha Stevenson Hemoglobin (Bld) [Mass/Vol] 15.6 g/dL Normal 14.0-18.0 [facility] Comment on above: Performed By: #### L ACT #### [facility] [address] [place] [address] [address] Pratibha Stevenson IG # 0.01 10e3/ul Normal 0.00-0.03 [facility] Comment on above: Performed By: #### L ACT #### [facility] [address] [place] [address] [address] Pratibha Stevenson IG % 0.1 % Normal 0.0-0.5 [facility] Comment on above: Performed By: #### L ACT #### [facility] [address] [place] [address] Dr. Pratibha Stevenson LYMPH # 2.0 103/ul Normal 1.2-3.8 [facility] Comment on above: Performed By: #### L ACT #### [facility] [address] [place] [address] Dr. Pratibha Stevenson Lymphocytes/100 WBC (Bld) 28.8 % Normal 20.5-60.0 [facility] Comment on above: Performed By: #### L ACT #### [facility] [address] [place] [address] Dr. Pratibha Stevenson MANUAL DIFF REQ NO Normal [facility] Comment on above: Performed By: #### L ACT #### [facility] [address] [place] [address] Dr. Pratibha Stevenson MCH (RBC) [Entitic mass] 31.3 pg Normal 25.9-34.0 [facility] Comment on above: Performed By: #### L ACT #### [facility] [address] [place] [address] Dr. Pratibha Stevenson MCHC (RBC) [Mass/Vol] 34.0 g/dL Normal 29.9-35.2 [facility] Comment on above: Performed By: #### L ACT #### [facility] [address] [place] [address] Dr. Pratibha Stevenson MCV (RBC) [Entitic vol] 92.2 fL Normal 80.0-94.0 [facility] Comment on above: Performed By: #### L ACT #### [facility] [address] [place] [address] Dr. Pratibha Stevenson MONO # 0.3 103/ul Normal 0.3-0.8 [facility] Comment on above: Performed By: #### L ACT #### [facility] [address] [place] [address] Dr. Pratibha Stevenson Monocytes/100 WBC (Bld) 4.3 % Normal 1.7-12.0 [facility] Comment on above: Performed By: #### L ACT #### [facility] [address] [place] [address] Dr. Pratibha Stevenson NEUT # 4.5 103/ul Normal 1.4-6.5 [facility] Comment on above: Performed By: #### L ACT #### [facility] [address] [place] [address] Dr. Pratibha Stevenson Neutrophils/100 WBC (Bld) 64.1 % Normal 43.0-75.0 [facility] Comment on above: Performed By: #### L ACT #### [facility] [address] [place] [address] Dr. Pratibha Stevenson Platelet mean volume (Bld) [Entitic vol] 10.3 fL Normal 9.5-13.5 [facility] Comment on above: Performed By: #### L ACT #### [facility] [address] [place] [address] Dr. Pratibha Stevenson PLT 219 103/ul Normal 150-450 [facility] Comment on above: Performed By: #### L ACT #### [facility] [address] [place] [address] Dr. Pratibha Stevenson RBC 4.98 106/ul Normal 4.70-6.10 [facility] Comment on above: Performed By: #### L ACT #### [facility] [address] [place] [address] Dr. Pratibha Stevenson WBC 7.1 103/ul Normal 4.0-11.0 [facility] Comment on above: Performed By: #### L ACT #### [facility] [address] [place] [address] ABD/PELV W CONon [...] YING WALTON Date: 2022-07-22 23:53 Normal [facility] [place] [facility] DRUG SCREEN RAPID (URINE)on 07-23-2022 AMP Negative Normal NEGATIVE [facility] Comment on above: Performed By: #### E RUR #### [facility] [address] [place] [address] Dr. Pratibha Stevenson BAR Negative Normal NEGATIVE [facility] Comment on above: Performed By: #### E RUR #### [facility] [address] [place] [address] [address] Pratibha Stevenson BUP Negative Normal NEGATIVE [facility] Comment on above: Performed By: #### E RUR #### [facility] [address] [place] [address] [address] Pratibha Stevenson BZO Negative Normal NEGATIVE [facility] Comment on above: Performed By: #### E RUR #### [facility] [address] [place] [address] Dr. Pratibha Stevenson EMELY Negative Normal NEGATIVE [facility] Comment on above: Performed By: #### E RUR #### [facility] [address] [place] [address] Dr. Pratibha Stevenson CUT-OFFS SEE BELOW Normal [facility] Comment on above: Result Comment: AMP (Amphetamine): 500ng/mL, BAR (Barbituates): 200 ng/mL, BZO (Benzodiazepines): 150 ng/mL, BUP (Buprenorphine): 10 ng/mL, EMELY (Cocaine): 150 ng/mL, mAMP (Methamphetamine): 500 ng/mL, MTD (Methadone): 200 ng/mL, OPI (Opiates): 100 ng/mL, OXY (Oxycodone): 100 ng/mL, PCP (Phencyclidine): 25 ng/mL, PPX (Propoxyphene): 300 ng/mL, THC (Cannabinoids): 50 ng/mL, TCA (Trycyclic Antidepressants): 300 ng/mL Performed By: #### E RUR #### [facility] [address] [place] [address] Dr. Pratibha Stevenson DRUG CUT HEADER DRUG CLASS TEST SYST EM CUT-OFF CONCENTRATIONS ARE FOLLOWS: Normal [facility] Comment on above: Performed By: #### E RUR #### [facility] [address] [place] [address] Dr. Pratibha Stevenson mAMP Negative Normal NEGATIVE [facility] Comment on above: Performed By: #### E RUR #### [facility] [address] [place] [address] Dr. Pratibha Stevenson MTD Negative Normal NEGATIVE [facility] Comment on above: Performed By: #### E RUR #### [facility] [address] [place] [address] Dr. Pratibha Stevenson OPI Positive Abnormal NEGATIVE [facility] Comment on above: Performed By: #### E RUR #### [facility] [address] [place] [address] Dr. Pratibha Stevenson OXY Negative Normal NEGATIVE [facility] Comment on above: Performed By: #### E RUR #### [facility] [address] [place] [address] Dr. Pratibha Stevenson PCP Negative Normal NEGATIVE [facility] Comment on above: Performed By: #### E RUR #### [facility] [address] [place] [address] Dr. Pratibha Stevenson PPX Negative Normal NEGATIVE [facility] Comment on above: Performed By: #### E RUR #### [facility] [address] [place] [address] Dr. Pratibha Stevenson TCA Positive Abnormal NEGATIVE [facility] Comment on above: Performed By: #### E RUR #### [facility] [address] [place] [address] Dr. Pratibha Stevenson THC Positive Abnormal NEGATIVE [facility] Comment on above: Performed By: #### E RUR #### [facility] [address] [place] [address] Dr. Pratibha Stevenson ER URINE PROFILEon 3 Bilirubin Ql (U) Negative Normal NEGATIVE [facility] Comment on above: Performed By: #### E RUR #### [facility] [address] [place] [address] Dr. Pratibha Stevenson Clarity (U) CLEAR Normal CLEAR [facility] Comment on above: Performed By: #### E RUR #### [facility] [address] [place] [address] Dr. Pratibha Stevenson Color (U) LT. YELLOW Normal YELLOW [facility] Comment on above: Performed By: #### E RUR #### [facility] [address] [place] [address] Dr. Pratibha Stevenson ERUAHD A micrscopic examination will be performed if indicated. Normal [facility] Comment on above: Performed By: #### E RUR #### [facility] [address] [place] [address] Dr. Pratibha Stevenson Glucose Ql (U) Negative Normal NEGATIVE [facility] Comment on above: Performed By: #### E RUR #### [facility] [address] [place] [address] Dr. Pratibha Stevenson Hemoglobin Ql (U) Negative Normal NEGATIVE [facility] Comment on above: Performed By: #### E RUR #### [facility] [address] [place] [address] Dr. Pratibha Stevenson Ketones Ql (U) Negative Normal NEGATIVE [facility] Comment on above: Performed By: #### E RUR #### [facility] [address] [place] [address] Dr. Pratibha Stevenson LEUKOCYTES Negative Normal NEGATIVE [facility] Comment on above: Performed By: #### E RUR #### [facility] [address] [place] [address] Dr. Pratibha Stevenson Nitrite Ql (U) Negative Normal NEGATIVE [facility] Comment on above: Performed By: #### E RUR #### [facility] [address] [place] [address] Dr. Pratibha Stevenson pH (U) 5.5 [pH] Normal 5-9 [facility] Comment on above: Performed By: #### E RUR #### [facility] [address] [place] [address] Dr. Pratibha Stevenson SPEC GRAVITY <=1.005 Abnormal 1.005-<=1.025 [facility] Comment on above: Performed By: #### E RUR #### [facility] [address] [place] [address] Dr. Pratibha Stevenson UA PROTEIN Negative Normal NEGATIVE/ TRACE [facility] Comment on above: Performed By: #### E RUR #### [facility] [address] [place] [address] Dr. Pratibha Stevenson UR MICRO IND NOT INDICATED Normal [facility] Comment on above: Performed By: #### E RUR #### [facility] [address] [place] [address] Dr. Pratibha Stevenson Urobilinogen Qn (U) 0.2 {Butch'U}/dL Normal 0.2 - 1. 0 [facility] Comment on above: Performed By: #### E RUR #### [facility] [address] [place] [address] Dr. Pratibha Stevenson LIPASEon 07-23-2022 Lipase [Catalytic activity/Vol] 126.0 U/L Normal 73.0-393.0 [facility] Comment on above: Performed By: #### E RUR #### [facility] [address] [place] [address] Dr. Pratibha Stevenson PROF 14(COMP METB)on 023 Albumin [Mass/Vol] 4.2 g/dL Normal 3.4-5.0 [facility] Comment on above: Performed By: #### E RUR #### [facility] [address] [place] [address] Dr. Pratibha Stevenson Albumin/Globulin [Mass ratio] 1.4 {ratio} Normal [facility] Comment on above: Performed By: #### E RUR #### [facility] [address] [place] [address] Dr. Pratibha Stevenson ALP [Catalytic activity/Vol] 87 U/L Normal 46-116 [facility] Comment on above: Performed By: #### E RUR #### [facility] [address] [place] [address] Dr. Pratibha Stevenson ALT [Catalytic activity/Vol] 20 U/L Normal 16-63 [facility] Comment on above: Performed By: #### E RUR #### [facility] [address] [place] [address] Dr. Pratibha Stevenson Anion gap [Moles/Vol] 12.8 mmol/L Normal [facility] Comment on above: Performed By: #### E RUR #### [facility] [address] [place] [address] Dr. Pratibha Stevenson AST [Catalytic activity/Vol] 18 U/L Normal 15-37 [facility] Comment on above: Performed By: #### E RUR #### [facility] [address] [place] [address] Dr. Pratibha Stevenson Bilirubin [Mass/Vol] 0.5 mg/dL Normal 0.2-1.0 [facility] Comment on above: Performed By: #### E RUR #### [facility] [address] [place] [address] Dr. Pratibha Stevenson Calcium [Mass/Vol] 9.2 mg/dL Normal 8.5-10.1 [facility] Comment on above: Performed By: #### E RUR #### [facility] [address] [place] [address] Dr. Pratibha Stevenson Chloride [Moles/Vol] 101 mmol/L Normal 98-107 [facility] Comment on above: Performed By: #### E RUR #### [facility] [address] [place] [address] Dr. Pratibha Stevenson CO2 [Moles/Vol] 24.7 mmol/L Normal 21.0-32.0 [facility] Comment on above: Performed By: #### E RUR #### [facility] [address] [place] [address] Dr. Pratibha Stevenson Creatinine [Mass/Vol] 1.20 mg/dL Normal 0.70-1.30 [facility] Comment on above: Performed By: #### E RUR #### [facility] [address] [place] [address] Dr. Pratibha Stevenson EGFR-AF PALESTINIAN >60 Normal >=60 [facility] Comment on above: Performed By: #### E RUR #### [facility] [address] [place] [address] Dr. Pratibha Stevenson EGFR-NON AF PALESTINIAN >60 Normal >=60 [facility] Comment on above: Performed By: #### E RUR #### [facility] [address] [place] [address] Dr. Pratibha Stevenson Globulin (S) [Mass/Vol] 3.1 g/dL Normal [facility] Comment on above: Performed By: #### E RUR #### [facility] [address] [place] [address] Dr. Pratibha Stevenson Glucose [Mass/Vol] 128 mg/dL Critically high 74-106 [facility] Comment on above: Performed By: #### E RUR #### [facility] [address] [address] [address] Pratibha Stevenson Potassium [Moles/Vol] 3.5 mmol/L Normal 3.5-5.1 [facility] Comment on above: Performed By: #### E RUR #### [facility] [address] [place] [address] Dr. Pratibha Stevenson Protein [Mass/Vol] 7.3 g/dL Normal 6.4-8.2 [facility] Comment on above: Performed By: #### E RUR #### [facility] [address] [place] [address] Dr. Pratibha Stevenson Sodium [Moles/Vol] 135 mmol/L Critically low 136-145 [facility] Comment on above: Performed By: #### E RUR #### [facility] [address] [place] [address] Dr. Pratibha Stevenson Urea nitrogen [Mass/Vol] 10.0 mg/dL Normal 7.0-18.0 [facility] Comment on above: Performed By: #### E RUR #### [facility] [address] [place] [address] Dr. Pratibha Stevenson Urea nitrogen/Creatinine [Mass ratio] 8.3 mg/mg Normal [facility] Comment on above: Performed By: #### E RUR #### [facility] [address] [place] [address] Dr. Pratibha Stevenson CBC AUTO DIFFon 07-20-2022 BASO # 0.1 103/ul Normal 0.0-0.1 [facility] Comment on above: Performed By: #### C BC #### [facility] [address] [place] [address] Dr. Pratibha Stevenson Basophils/100 WBC (Bld) 0.7 % Normal 0.2-2.0 [facility] Comment on above: Performed By: #### C BC #### [facility] [address] [place] [address] Dr. Pratibha Stevenson EO # 0.2 103/ul Normal 0.0-0.7 [facility] Comment on above: Performed By: #### C BC #### [facility] [address] [place] [address] Dr. Pratibha Stevenson Eosinophils/100 WBC (Bld) 2.4 % Normal 0.9-7.0 [facility] Comment on above: Performed By: #### C BC #### [facility] [address] [place] [address] Dr. Pratibha Stevenson Erythrocyte distribution width (RBC) [Ratio] 12.4 % Normal 11.0-15.0 [facility] Comment on above: Performed By: #### C BC #### [facility] [address] [place] [address] Dr. Pratibha Stevenson Hematocrit (Bld) [Volume fraction] 45.8 % Normal 42.0-54.0 [facility] Comment on above: Performed By: #### C BC #### [facility] [address] [place] [address] Dr. Pratibha Stevenson Hemoglobin (Bld) [Mass/Vol] 15.6 g/dL Normal 14.0-18.0 [facility] Comment on above: Performed By: #### C BC #### [facility] [address] [place] [address] Dr. Pratibha Stevenson IG # 0.03 10e3/ul Normal 0.00-0.03 [facility] Comment on above: Performed By: #### C BC #### [facility] [address] [place] [address] Dr. Pratibha Stevenson IG % 0.4 % Normal 0.0-0.5 [facility] Comment on above: Performed By: #### C BC #### [facility] [address] [place] [address] Dr. Pratibha Stevenson LYMPH # 3.0 103/ul Normal 1.2-3.8 [facility] Comment on above: Performed By: #### C BC #### [facility] [address] [place] [address] Dr. Pratibha Stevenson Lymphocytes/100 WBC (Bld) 34.7 % Normal 20.5-60.0 [facility] Comment on above: Performed By: #### C BC #### [facility] [address] [place] [address] Dr. Pratibha Stevenson MANUAL DIFF REQ NO Normal [facility] Comment on above: Performed By: #### C BC #### [facility] [address] [place] [address] Dr. Pratibha Stevenson MCH (RBC) [Entitic mass] 31.3 pg Normal 25.9-34.0 [facility] Comment on above: Performed By: #### C BC #### [facility] [address] [place] [address] Dr. Pratibha Stevenson MCHC (RBC) [Mass/Vol] 34.1 g/dL Normal 29.9-35.2 [facility] Comment on above: Performed By: #### C BC #### [facility] [address] [place] [address] Dr. Pratibha Stevenson MCV (RBC) [Entitic vol] 92.0 fL Normal 80.0-94.0 [facility] Comment on above: Performed By: #### C BC #### [facility] [address] [place] [address] Dr. Pratibha Stevenson MONO # 0.5 103/ul Normal 0.3-0.8 [facility] Comment on above: Performed By: #### C BC #### [facility] [address] [place] [address] Dr. Pratibha Stevenson Monocytes/100 WBC (Bld) 5.9 % Normal 1.7-12.0 [facility] Comment on above: Performed By: #### C BC #### [facility] [address] [place] [address] Dr. Pratibha Stevenson NEUT # 4.8 103/ul Normal 1.4-6.5 [facility] Comment on above: Performed By: #### C BC #### [facility] [address] [place] [address] Dr. Pratibha Stevenson Neutrophils/100 WBC (Bld) 55.9 % Normal 43.0-75.0 [facility] Comment on above: Performed By: #### C BC #### [facility] [address] [place] [address] Dr. Pratibha Stevenson Platelet mean volume (Bld) [Entitic vol] 10.0 fL Normal 9.5-13.5 [facility] Comment on above: Performed By: #### C BC #### [facility] [address] [place] [address] Dr. Pratibha Stevenson PLT 243 103/ul Normal 150-450 [facility] Comment on above: Performed By: #### C BC #### [facility] [address] [place] [address] Dr. Pratibha Stevenson RBC 4.98 106/ul Normal 4.70-6.10 [facility] Comment on above: Performed By: #### C BC #### [facility] [address] [place] [address] Dr. Pratibha Stevenson WBC 8.5 103/ul Normal 4.0-11.0 [facility] Comment on above: Performed By: #### C BC #### [facility] [address] [place] [address] ABD/PELVIS WO CONon [...] ROSALINO VIDALES Date: 2022-07-20 04:12 Normal [facility] ER URINE PROFILEon 3 Bilirubin Ql (U) Negative Normal NEGATIVE [facility] Comment on above: Performed By: #### L ACT #### [facility] [address] [place] [address] Dr. Pratibha Stevenson Clarity (U) CLEAR Normal CLEAR [facility] Comment on above: Performed By: #### L ACT #### [facility] [address] [address] [address] Pratibha Stevenson Color (U) LT. YELLOW Normal YELLOW [facility] Comment on above: Performed By: #### L ACT #### [facility] [address] [place] [address] Dr. Pratibha RIOS A micrscopic examination will be performed if indicated. Normal [facility] Comment on above: Performed By: #### L ACT #### [facility] [address] [place] [address] Dr. Pratibha Stevenson Glucose Ql (U) Negative Normal NEGATIVE [facility] Comment on above: Performed By: #### L ACT #### [facility] [address] [place] [address] Dr. Pratibha Stevenson Hemoglobin Ql (U) Negative Normal NEGATIVE [facility] Comment on above: Performed By: #### L ACT #### [facility] [address] [place] [address] Dr. Pratibha Stevenson Ketones Ql (U) Negative Normal NEGATIVE [facility] Comment on above: Performed By: #### L ACT #### [facility] [address] [place] [address] Dr. Pratibha Stevenson LEUKOCYTES Negative Normal NEGATIVE [facility] Comment on above: Performed By: #### L ACT #### [facility] [address] [place] [address] Dr. Pratibha Stevenson Nitrite Ql (U) Negative Normal NEGATIVE [facility] Comment on above: Performed By: #### L ACT #### [facility] [address] [place] [address] Dr. Pratibha Stevenson pH (U) 6.0 [pH] Normal 5-9 [facility] Comment on above: Performed By: #### L ACT #### [facility] [address] [place] [address] Dr. Pratibha Stevenson SPEC GRAVITY <=1.005 Abnormal 1.005-<=1.025 [facility] Comment on above: Performed By: #### L ACT #### [facility] [address] [place] [address] Dr. Pratibha Stevenson UA PROTEIN Negative Normal NEGATIVE/ TRACE [facility] Comment on above: Performed By: #### L ACT #### [facility] [address] [place] [address] Dr. Pratibha Stevenson UR MICRO IND NOT INDICATED Normal [facility] Comment on above: Performed By: #### L ACT #### [facility] [address] [place] [address] Dr. Pratibha Stevenson Urobilinogen Qn (U) 0.2 {Butch'U}/dL Normal 0.2 - 1. 0 [facility] Comment on above: Performed By: #### L ACT #### [facility] [address] [place] [address] Dr. Pratibha Stevenson LACTATE/LACTIC ACIDon 2022 Lactate [Moles/Vol] 0.8 mmol/L Normal 0.4-2.0 [facility] Comment on above: Performed By: #### L ACT #### [facility] [address] [place] [address] Dr. Pratibha Stevenson PROF 14(COMP METB)on 023 Albumin [Mass/Vol] 4.3 g/dL Normal 3.4-5.0 [facility] Comment on above: Performed By: #### E RUR #### [facility] [address] [place] [address] Dr. Pratibha Stevenson Albumin/Globulin [Mass ratio] 1.3 {ratio} Normal [facility] Comment on above: Performed By: #### E RUR #### [facility] [address] [place] [address] Dr. Pratibha Stevenson ALP [Catalytic activity/Vol] 94 U/L Normal 46-116 [facility] Comment on above: Performed By: #### E RUR #### [facility] [address] [address] [address] Pratibha Stevenson ALT [Catalytic activity/Vol] 23 U/L Normal 16-63 [facility] Comment on above: Performed By: #### E RUR #### [facility] [address] [place] [address] Dr. Pratibha Stevenson Anion gap [Moles/Vol] 10.5 mmol/L Normal [facility] Comment on above: Performed By: #### E RUR #### [facility] [address] [address] [address] Pratibha Stevenson AST [Catalytic activity/Vol] 21 U/L Normal 15-37 [facility] Comment on above: Performed By: #### E RUR #### [facility] [address] [place] [address] Dr. Pratibha Stevenson Bilirubin [Mass/Vol] 0.5 mg/dL Normal 0.2-1.0 [facility] Comment on above: Performed By: #### E RUR #### [facility] [address] [place] [address] Dr. Pratibha Stevenson Calcium [Mass/Vol] 9.3 mg/dL Normal 8.5-10.1 [facility] Comment on above: Performed By: #### E RUR #### [facility] [address] [place] [address] Dr. Pratibha Stevenson Chloride [Moles/Vol] 102 mmol/L Normal 98-107 [facility] Comment on above: Performed By: #### E RUR #### [facility] [address] [place] [address] Dr. Pratibha Stevenson CO2 [Moles/Vol] 26.2 mmol/L Normal 21.0-32.0 [facility] Comment on above: Performed By: #### E RUR #### [facility] [address] [place] [address] Dr. Pratibha Stevenson Creatinine [Mass/Vol] 1.18 mg/dL Normal 0.70-1.30 [facility] Comment on above: Performed By: #### E RUR #### [facility] [address] [address] [address] Pratibha Stevenson EGFR-AF PALESTINIAN >60 Normal >=60 [facility] Comment on above: Performed By: #### E RUR #### [facility] [address] [address] [address] Pratibha Stevenson EGFR-NON AF PALESTINIAN >60 Normal >=60 [facility] Comment on above: Performed By: #### E RUR #### [facility] [address] [address] [address] Pratibha Stevenson Globulin (S) [Mass/Vol] 3.2 g/dL Normal [facility] Comment on above: Performed By: #### E RUR #### [facility] [address] [place] [address] Dr. Pratibha Stevenson Glucose [Mass/Vol] 115 mg/dL Critically high 74-106 [facility] Comment on above: Performed By: #### E RUR #### [facility] [address] [address] [address] Pratibha Stevenson Potassium [Moles/Vol] 3.7 mmol/L Normal 3.5-5.1 [facility] Comment on above: Performed By: #### E RUR #### [facility] [address] [place] [address] Dr. Pratibha Stevenson Protein [Mass/Vol] 7.5 g/dL Normal 6.4-8.2 [facility] Comment on above: Performed By: #### E RUR #### [facility] [address] [address] [address] Pratibha Stevenson Sodium [Moles/Vol] 135 mmol/L Critically low 136-145 [facility] Comment on above: Performed By: #### E RUR #### [facility] [address] [address] [address] Pratibha Stevenson Urea nitrogen [Mass/Vol] 11.0 mg/dL Normal 7.0-18.0 [facility] Comment on above: Performed By: #### E RUR #### [facility] [address] [place] [address] Dr. Pratibha Stevenson Urea nitrogen/Creatinine [Mass ratio] 9.3 mg/mg Normal [facility] Comment on above: Performed By: #### E RUR #### [facility] [address] [place] [address] Dr. Pratibha Stevenson TROPONIN, HIGH SENSITIVITYon 07-20-2022 HSTROP 5.0 pg/mL Normal 4.0-76.1 [facility] Comment on above: Result Comment: CUT- OFF POINTS HAVE BEEN ESTABLISHED BASED ON THE FOURTH UNIVERSAL DEFINITIONS OF MYOCARDIAL INFARCTION. THE UPPER REFERENCE LIMIT (URL) OF TROPONIN, DEFINED THE 99TH PERCENTILE OF cTnI DISTRIBUTION IN A REFERENCE POPULATION, HAS BEEN CONFIRMED THE DECISION THRESHOLD FOR SD DIAGNOSIS. Performed By: #### E RUR #### [facility] [address] [place] [address] Dr. Pratibha Stevenson US KIDNEYSon 07-06-2022 US KIDNEYS EXAMINATION: US [...] Bilateral nonobstructing nephrolithiasis Electronically authenticated by: RAMO BALKE Date: 2022-07-06 11:14 Normal [facility] XR KUB 1 VIEWon 07-06-2022 XR KUB [...] SAUMYA MARSH Date: 2022-07-06 11:57 Normal [facility] AMYLASEon 05-12-2022 Amylase [Catalytic activity/Vol] 39 U/L Normal 25-115 [facility] Comment on above: Performed By: #### E RUR #### [facility] [address] [address] [address] Pratibha Stevenson CBC AUTO DIFFon 05-12-2022 BASO # 0.0 103/ul Normal 0.0-0.1 [facility] Comment on above: Performed By: #### L ACT #### [facility] [address] [address] [address] Pratibha Stevenson Basophils/100 WBC (Bld) 0.2 % Normal 0.2-2.0 [facility] Comment on above: Performed By: #### L ACT #### [facility] [address] [address] [address] Pratibha Stevenson EO # 0.0 103/ul Normal 0.0-0.7 [facility] Comment on above: Performed By: #### L ACT #### [facility] [address] [address] [address] Pratibha Stevenson Eosinophils/100 WBC (Bld) 0.0 % Critically low 0.9-7.0 [facility] Comment on above: Performed By: #### L ACT #### [facility] [address] [place] [address] Dr. Pratibha Stevenson Erythrocyte distribution width (RBC) [Ratio] 11.7 % Normal 11.0-15.0 [facility] Comment on above: Performed By: #### L ACT #### [facility] [address] [address] [address] Pratibha Stevenson Hematocrit (Bld) [Volume fraction] 43.0 % Normal 42.0-54.0 [facility] Comment on above: Performed By: #### L ACT #### [facility] [address] [address] [address] Pratibha Stevenson Hemoglobin (Bld) [Mass/Vol] 13.9 g/dL Critically low 14.0-18.0 [facility] Comment on above: Performed By: #### L ACT #### [facility] [address] [address] [address] Pratibha Stevenson IG # 0.03 10e3/ul Normal 0.00-0.03 [facility] Comment on above: Performed By: #### L ACT #### [facility] [address] [address] [address] Pratibha Stevenson IG % 0.3 % Normal 0.0-0.5 [facility] Comment on above: Performed By: #### L ACT #### [facility] [address] [place] [address] Dr. Pratibha Stevenson LYMPH # 0.8 103/ul Critically low 1.2-3.8 [facility] Comment on above: Performed By: #### L ACT #### [facility] [address] [address] [address] Pratibha Stevenson Lymphocytes/100 WBC (Bld) 8.6 % Critically low 20.5-60.0 [facility] Comment on above: Performed By: #### L ACT #### [facility] [address] [place] [address] Dr. Pratibha Stevenson MANUAL DIFF REQ NO Normal [facility] Comment on above: Performed By: #### L ACT #### [facility] [address] [address] [address] Pratibha Stevenson MCH (RBC) [Entitic mass] 31.0 pg Normal 25.9-34.0 [facility] Comment on above: Performed By: #### L ACT #### [facility] [address] [address] [address] Pratibha Stevenson MCHC (RBC) [Mass/Vol] 32.3 g/dL Normal 29.9-35.2 [facility] Comment on above: Performed By: #### L ACT #### [facility] [address] [address] [address] Pratibha Stevenson MCV (RBC) [Entitic vol] 96.0 fL Critically high 80.0-94.0 [facility] Comment on above: Performed By: #### L ACT #### [facility] [address] [place] [address] Dr. Pratibha Stevenson MONO # 0.4 103/ul Normal 0.3-0.8 [facility] Comment on above: Performed By: #### L ACT #### [facility] [address] [place] [address] Dr. Pratibha Stevenson Monocytes/100 WBC (Bld) 4.5 % Normal 1.7-12.0 [facility] Comment on above: Performed By: #### L ACT #### [facility] [address] [place] [address] Dr. Pratibha Stevenson NEUT # 8.4 103/ul Critically high 1.4-6.[address] [facility] Comment on above: Performed By: #### L ACT #### [facility] [address] [place] [address] Dr. Pratibha Stevenson Neutrophils/100 WBC (Bld) 86.4 % Critically high 43.0-75.0 [facility] Comment on above: Performed By: #### L ACT #### [facility] [address] [place] [address] Dr. Pratibha Stevenson Platelet mean volume (Bld) [Entitic vol] 10.6 fL Normal 9.5-13.5 [facility] Comment on above: Performed By: #### L ACT #### [facility] [address] [place] [address] Dr. Pratibha Stevenson PLT 227 103/ul Normal 150-450 [facility] Comment on above: Performed By: #### L ACT #### [facility] [address] [place] [address] Dr. Pratibha Stevenson RBC 4.48 106/ul Critically low 4.70-6.[address] [facility] Comment on above: Performed By: #### L ACT #### [facility] [address] [place] [address] Dr. Pratibha Stevenson WBC 9.7 103/ul Normal 4.0-11.0 [facility] Comment on above: Performed By: #### L ACT #### [facility] [address] [place] [address] Dr. Pratibha Stevenson LIPASEon 05-12-2022 Lipase [Catalytic activity/Vol] 110.0 U/L Normal 73.0-393.0 [facility] Comment on above: Performed By: #### E RUR #### [facility] [address] [place] [address] Dr. Pratibha Stevenson PROF 14(COMP METB)on 023 Albumin [Mass/Vol] 3.3 g/dL Critically low 3.4-5.0 [facility] Comment on above: Performed By: #### E RUR #### [facility] [address] [place] [address] Dr. Pratibha Stevenson Albumin/Globulin [Mass ratio] 1.2 {ratio} Normal [facility] Comment on above: Performed By: #### E RUR #### [facility] [address] [place] [address] Dr. Pratibha Stevenson ALP [Catalytic activity/Vol] 68 U/L Normal 46-116 [facility] Comment on above: Performed By: #### E RUR #### [facility] [address] [place] [address] Dr. Pratibha Stevenson ALT [Catalytic activity/Vol] 27 U/L Normal 16-63 [facility] Comment on above: Performed By: #### E RUR #### [facility] [address] [place] [address] Dr. Pratibha Stevenson Anion gap [Moles/Vol] 10.4 mmol/L Normal [facility] Comment on above: Performed By: #### E RUR #### [facility] [address] [place] [address] Dr. Pratibha Stevenson AST [Catalytic activity/Vol] 25 U/L Normal 15-37 [facility] Comment on above: Performed By: #### E RUR #### [facility] [address] [place] [address] Dr. Pratibha Stevenson Bilirubin [Mass/Vol] 0.5 mg/dL Normal 0.2-1.0 [facility] Comment on above: Performed By: #### E RUR #### [facility] [address] [place] [address] Dr. Pratibha Stevenson Calcium [Mass/Vol] 8.8 mg/dL Normal 8.5-10.1 [facility] Comment on above: Performed By: #### E RUR #### [facility] [address] [place] [address] Dr. Pratibha Stevenson Chloride [Moles/Vol] 105 mmol/L Normal 98-107 [facility] Comment on above: Performed By: #### E RUR #### [facility] [address] [place] [address] Dr. Pratibha Stevenson CO2 [Moles/Vol] 26.5 mmol/L Normal 21.0-32.0 [facility] Comment on above: Performed By: #### E RUR #### [facility] [address] [place] [address] Dr. Pratibha Stevenson Creatinine [Mass/Vol] 1.15 mg/dL Normal 0.70-1.30 [facility] Comment on above: Performed By: #### E RUR #### [facility] [address] [place] [address] Dr. Pratibha Stevenson EGFR-AF PALESTINIAN >60 Normal >=60 [facility] Comment on above: Performed By: #### E RUR #### [facility] [address] [place] [address] Dr. Pratibha Stevenson EGFR-NON AF PALESTINIAN >60 Normal >=60 [facility] Comment on above: Performed By: #### E RUR #### [facility] [address] [place] [address] Dr. Pratibha Stevenson Globulin (S) [Mass/Vol] 2.7 g/dL Normal [facility] Comment on above: Performed By: #### E RUR #### [facility] [address] [place] [address] Dr. Pratibha Stveenson Glucose [Mass/Vol] 119 mg/dL Critically high 74-106 [facility] Comment on above: Performed By: #### E RUR #### [facility] [address] [place] [address] Dr. Pratibha Stevenson Potassium [Moles/Vol] 3.9 mmol/L Normal 3.5-5.1 [facility] Comment on above: Performed By: #### E RUR #### [facility] [address] [place] [address] Dr. Pratibha Stevenson Protein [Mass/Vol] 6.0 g/dL Critically low 6.4-8.2 [facility] Comment on above: Performed By: #### E RUR #### [facility] [address] [place] [address] Dr. Pratibha Stevenson Sodium [Moles/Vol] 138 mmol/L Normal 136-145 [facility] Comment on above: Performed By: #### E RUR #### [facility] [address] [place] [address] Dr. Pratibha Stevenson Urea nitrogen [Mass/Vol] 7.0 mg/dL Normal 7.0-18.0 [facility] Comment on above: Performed By: #### E RUR #### [facility] [address] [place] [address] Dr. Pratibha Stevenson Urea nitrogen/Creatinine [Mass ratio] 6.1 mg/mg Normal [facility] Comment on above: Performed By: #### E RUR #### [facility] [address] [place] [address] Dr. Pratibha Stevenson XR KUB 1 VIEWon [...] ROSALINO SAID Date: 2022-05-12 06:43 Normal [facility] AMYLASEon 05-11-2022 Amylase [Catalytic activity/Vol] 52 U/L Normal 25-115 [facility] Comment on above: Performed By: #### C MP, GREG, LIPA #### [facility] [address] [place] [address] Dr. Pratibha Stevenson CBC AUTO DIFFon 05-11-2022 BASO # 0.0 103/ul Normal 0.0-0.1 [facility] Comment on above: Performed By: #### C BC #### [facility] [address] [place] [address] Dr. Pratibha Stevenson Basophils/100 WBC (Bld) 0.6 % Normal 0.2-2.0 [facility] Comment on above: Performed By: #### C BC #### [facility] [address] [place] [address] Dr. Pratibha Stevenson EO # 0.2 103/ul Normal 0.0-0.7 [facility] Comment on above: Performed By: #### C BC #### [facility] [address] [place] [address] Dr. Pratibha Stevenson Eosinophils/100 WBC (Bld) 2.3 % Normal 0.9-7.0 [facility] Comment on above: Performed By: #### C BC #### [facility] [address] [place] [address] Dr. Pratibha Stevenson Erythrocyte distribution width (RBC) [Ratio] 11.7 % Normal 11.0-15.0 [facility] Comment on above: Performed By: #### C BC #### [facility] [address] [place] [address] Dr. Pratibha Stevenson Hematocrit (Bld) [Volume fraction] 42.4 % Normal 42.0-54.0 [facility] Comment on above: Performed By: #### C BC #### [facility] [address] [place] [address] Dr. Pratibha Stevenson Hemoglobin (Bld) [Mass/Vol] 14.3 g/dL Normal 14.0-18.0 [facility] Comment on above: Performed By: #### C BC #### [facility] [address] [place] [address] Dr. Pratibha Stevenson IG # 0.01 10e3/ul Normal 0.00-0.03 [facility] Comment on above: Performed By: #### C BC #### [facility] [address] [place] [address] Dr. Pratibha Stevenson IG % 0.2 % Normal 0.0-0.5 [facility] Comment on above: Performed By: #### C BC #### [facility] [address] [place] [address] Dr. Pratibha Stevenson LYMPH # 2.8 103/ul Normal 1.2-3.8 [facility] Comment on above: Performed By: #### C BC #### [facility] [address] [place] [address] Dr. Pratibha Stevenson Lymphocytes/100 WBC (Bld) 41.8 % Normal 20.5-60.0 [facility] Comment on above: Performed By: #### C BC #### [facility] [address] [place] [address] Dr. Pratibha Stevenson MANUAL DIFF REQ NO Normal [facility] Comment on above: Performed By: #### C BC #### [facility] [address] [place] [address] Dr. Pratibha Stevenson MCH (RBC) [Entitic mass] 31.0 pg Normal 25.9-34.0 [facility] Comment on above: Performed By: #### C BC #### [facility] [address] [place] [address] Dr. Pratibha Stevenson MCHC (RBC) [Mass/Vol] 33.7 g/dL Normal 29.9-35.2 [facility] Comment on above: Performed By: #### C BC #### [facility] [address] [place] [address] Dr. Pratibha Stevenson MCV (RBC) [Entitic vol] 92.0 fL Normal 80.0-94.0 [facility] Comment on above: Performed By: #### C BC #### [facility] [address] [address] [address] Pratibha Stevenson MONO # 0.5 103/ul Normal 0.3-0.8 [facility] Comment on above: Performed By: #### C BC #### [facility] [address] [address] [address] Pratibha Stevenson Monocytes/100 WBC (Bld) 7.9 % Normal 1.7-12.0 [facility] Comment on above: Performed By: #### C BC #### [facility] [address] [address] [address] Pratibha Stevesnon NEUT # 3.1 103/ul Normal 1.4-6.5 [facility] Comment on above: Performed By: #### C BC #### [facility] [address] [place] [address] Dr. Pratibha Stevenson Neutrophils/100 WBC (Bld) 47.2 % Normal 43.0-75.0 [facility] Comment on above: Performed By: #### C BC #### [facility] [address] [address] [address] Pratibha Stevenson Platelet mean volume (Bld) [Entitic vol] 10.7 fL Normal 9.5-13.5 [facility] Comment on above: Performed By: #### C BC #### [facility] [address] [place] [address] Dr. Pratibha Stevenson PLT 216 103/ul Normal 150-450 [facility] Comment on above: Performed By: #### C BC #### [facility] [address] [place] [address] Dr. Pratibha Stevenson RBC 4.61 106/ul Critically low 4.70-6.[address] [facility] Comment on above: Performed By: #### C BC #### [facility] [address] [address] [address] Pratibha Stevenson WBC 6.6 103/ul Normal 4.0-11.0 [facility] Comment on above: Performed By: #### C BC #### [facility] [address], [place] [address] ABD/PELVIS WO CONon [...] SAUMYA MARSH Date: 2022-05-11 08:31 Normal [facility] LIPASEon 05-11-2022 Lipase [Catalytic activity/Vol] 241.0 U/L Normal 73.0-393.0 [facility] Comment on above: Performed By: #### C MP, GREG, LIPA #### [facility] [address] [place], [place] [address] Dr. Pratibha Stevenson PROF 14(COMP METB)on 023 Albumin [Mass/Vol] 3.6 g/dL Normal 3.4-5.0 [facility] Comment on above: Performed By: #### C GREG NGUYEN, LIPA #### [facility] [address] [address] [address] Pratibha Stevenson Albumin/Globulin [Mass ratio] 1.2 {ratio} Normal [facility] Comment on above: Performed By: #### C GREG NGUYEN, LIPA #### [facility] [address] [address] [address] Pratibha Stevenson ALP [Catalytic activity/Vol] 75 U/L Normal 46-116 [facility] Comment on above: Performed By: #### C GREG NGUYEN, LIPA #### [facility] [address] [address] [address] Pratibha Stevenson ALT [Catalytic activity/Vol] 28 U/L Normal 16-63 [facility] Comment on above: Performed By: #### C GREG NGUYEN, LIPA #### [facility] [address] [address] [address] Pratibha Stevenson Anion gap [Moles/Vol] 9.7 mmol/L Normal [facility] Comment on above: Performed By: #### C WENDY GREG, LIPA #### [facility] [address] [place] [address] Dr. Pratibha Stevenson AST [Catalytic activity/Vol] 19 U/L Normal 15-37 [facility] Comment on above: Performed By: #### C GREG NGUYEN, LIPA #### [facility] [address] [address] [address] Pratibha Stevenson Bilirubin [Mass/Vol] 0.5 mg/dL Normal 0.2-1.0 [facility] Comment on above: Performed By: #### C GREG NGUYEN, LIPA #### [facility] [address] [address] [address] Pratibha Stevenson Calcium [Mass/Vol] 9.1 mg/dL Normal 8.5-10.1 [facility] Comment on above: Performed By: #### C MP, GREG, LIPA #### [facility] [address] [address] [address] Pratibha Stevenson Chloride [Moles/Vol] 104 mmol/L Normal 98-107 [facility] Comment on above: Performed By: #### C MP, GRGE, LIPA #### [facility] [address] [address] [address] Pratibha Stevenson CO2 [Moles/Vol] 29.3 mmol/L Normal 21.0-32.0 [facility] Comment on above: Performed By: #### C MP, GREG, LIPA #### [facility] [address] [address] [address] Pratibha Stevenson Creatinine [Mass/Vol] 1.21 mg/dL Normal 0.70-1.30 [facility] Comment on above: Performed By: #### C MP, GREG, LIPA #### [facility] [address] [address] [address] Pratibha Stevenson EGFR-AF PALESTINIAN >60 Normal >=60 [facility] Comment on above: Performed By: #### C MP, GREG, LIPA #### [facility] [address] [address] [address] Pratibha Stevenson EGFR-NON AF PALESTINIAN >60 Normal >=60 [facility] Comment on above: Performed By: #### C MP, GREG, LIPA #### [facility] [address] [address] [address] Pratibha Stevenson Globulin (S) [Mass/Vol] 3.1 g/dL Normal [facility] Comment on above: Performed By: #### C MP, GREG, LIPA #### [facility] [address] [address] [address] Pratibha Stevenson Glucose [Mass/Vol] 88 mg/dL Normal 74-106 [facility] Comment on above: Performed By: #### C MP, GREG, LIPA #### [facility] [address] [address] [address] Pratibha Stevenson Potassium [Moles/Vol] 4.0 mmol/L Normal 3.5-5.1 [facility] Comment on above: Performed By: #### C GREG NGUYEN LIPA #### [facility] [address] [address] [address] Pratibha Stevenson Protein [Mass/Vol] 6.7 g/dL Normal 6.4-8.2 [facility] Comment on above: Performed By: #### C GREG NGUYEN LIPA #### [facility] [address] [place] [address] Dr. Pratibha Stevenson Sodium [Moles/Vol] 139 mmol/L Normal 136-145 [facility] Comment on above: Performed By: #### C GREG NGUYEN LIPA #### [facility] [address] [place] [address] Dr. Pratibha Stevenson Urea nitrogen [Mass/Vol] 8.0 mg/dL Normal 7.0-18.0 [facility] Comment on above: Performed By: #### C GREG NGUYEN LIPA #### [facility] [address] [place] [address] Dr. Pratibha Stevenson Urea nitrogen/Creatinine [Mass ratio] 6.6 mg/mg Normal [facility] Comment on above: Performed By: #### C GREG NGUYEN LIPA #### [facility] [address] [place] [address] Dr. Pratibha Stevenson XR KUB 1 VIEWon [...] MAUREEN GARDNER Date: 2022-05-11 06:36 Normal [facility] AMYLASEon 05-10-2022 Amylase [Catalytic activity/Vol] 41 U/L Normal 25-115 [facility] Comment on above: Performed By: #### L ACT #### [facility] [address] [place] [address] Dr. Pratibha Stevenson CBC AUTO DIFFon 05-10-2022 BASO # 0.0 103/ul Normal 0.0-0.1 [facility] Comment on above: Performed By: #### L ACT #### [facility] [address] [place] [address] Dr. Pratibha Stevenson Basophils/100 WBC (Bld) 0.7 % Normal 0.2-2.0 [facility] Comment on above: Performed By: #### L ACT #### [facility] [address] [place] [address] Dr. Pratibha Stevenson EO # 0.2 103/ul Normal 0.0-0.7 [facility] Comment on above: Performed By: #### L ACT #### [facility] [address] [place] [address] Dr. Pratibha Stevenson Eosinophils/100 WBC (Bld) 2.8 % Normal 0.9-7.0 [facility] Comment on above: Performed By: #### L ACT #### [facility] [address] [place] [address] Dr. Pratibha Stevenson Erythrocyte distribution width (RBC) [Ratio] 11.8 % Normal 11.0-15.0 [facility] Comment on above: Performed By: #### L ACT #### [facility] [address] [place] [address] Dr. Pratibha Stevenson Hematocrit (Bld) [Volume fraction] 38.8 % Critically low 42.0-54.0 [facility] Comment on above: Performed By: #### L ACT #### [facility] [address] [place] [address] Dr. Pratibha Stevenson Hemoglobin (Bld) [Mass/Vol] 13.3 g/dL Critically low 14.0-18.0 [facility] Comment on above: Performed By: #### L ACT #### [facility] [address] [place] [address] Dr. Pratibha Stevenson IG # 0.02 10e3/ul Normal 0.00-0.03 [facility] Comment on above: Performed By: #### L ACT #### [facility] [address] [place] [address] Dr. Pratibha Stevenson IG % 0.3 % Normal 0.0-0.5 [facility] Comment on above: Performed By: #### L ACT #### [facility] [address] [place] [address] Dr. Pratibha Stevenson LYMPH # 2.1 103/ul Normal 1.2-3.8 [facility] Comment on above: Performed By: #### L ACT #### [facility] [address] [place] [address] Dr. Pratibha Stevenson Lymphocytes/100 WBC (Bld) 35.3 % Normal 20.5-60.0 [facility] Comment on above: Performed By: #### L ACT #### [facility] [address] [place] [address] Dr. Pratibha Stevenson MANUAL DIFF REQ NO Normal [facility] Comment on above: Performed By: #### L ACT #### [facility] [address] [place] [address] Dr. Pratibha Stevenson MCH (RBC) [Entitic mass] 30.7 pg Normal 25.9-34.0 [facility] Comment on above: Performed By: #### L ACT #### [facility] [address] [place] [address] Dr. Pratibha Stevenson MCHC (RBC) [Mass/Vol] 34.3 g/dL Normal 29.9-35.2 [facility] Comment on above: Performed By: #### L ACT #### [facility] [address] [place] [address] Dr. Pratibha Stevenson MCV (RBC) [Entitic vol] 89.6 fL Normal 80.0-94.0 [facility] Comment on above: Performed By: #### L ACT #### [facility] [address] [place] [address] Dr. Pratibha Stevenson MONO # 0.4 103/ul Normal 0.3-0.8 [facility] Comment on above: Performed By: #### L ACT #### [facility] [address] [place] [address] Dr. Pratibha Stevenson Monocytes/100 WBC (Bld) 7.4 % Normal 1.7-12.0 [facility] Comment on above: Performed By: #### L ACT #### [facility] [address] [place] [address] Dr. Pratibha Stevenson NEUT # 3.1 103/ul Normal 1.4-6.5 [facility] Comment on above: Performed By: #### L ACT #### [facility] [address] [place] [address] Dr. Pratibha Stevenson Neutrophils/100 WBC (Bld) 53.5 % Normal 43.0-75.0 [facility] Comment on above: Performed By: #### L ACT #### [facility] [address] [place] [address] Dr. Pratibha Stevenson Platelet mean volume (Bld) [Entitic vol] 10.2 fL Normal 9.5-13.5 [facility] Comment on above: Performed By: #### L ACT #### [facility] [address] [place] [address] Dr. Pratibha Stevenson PLT 197 103/ul Normal 150-450 [facility] Comment on above: Performed By: #### L ACT #### [facility] [address] [place] [address] Dr. Pratibha Stevenson RBC 4.33 106/ul Critically low 4.70-6.[address] [facility] Comment on above: Performed By: #### L ACT #### [facility] [address] [place] [address] Dr. Pratibha Stevenson WBC 5.8 103/ul Normal 4.0-11.0 [facility] Comment on above: Performed By: #### L ACT #### [facility] [address] [place] [address] Dr. Praitbha Stevenson LIPASEon 05-10-2022 Lipase [Catalytic activity/Vol] 134.0 U/L Normal 73.0-393.0 [facility] Comment on above: Performed By: #### L ACT #### [facility] [address] [place] [address] Dr. Pratibha Stevenson PROF 14(COMP METB)on 023 Albumin [Mass/Vol] 3.1 g/dL Critically low 3.4-5.0 Th e [facility] Comment on above: Performed By: #### L ACT #### [facility] [address] [place] [address] Dr. Pratibha Stevenson Albumin/Globulin [Mass ratio] 1.1 {ratio} Normal [facility] Comment on above: Performed By: #### L ACT #### [facility] [address] [place] [address] Dr. Pratibha Stevenson ALP [Catalytic activity/Vol] 68 U/L Normal 46-116 [facility] Comment on above: Performed By: #### L ACT #### [facility] [address] [place] [address] Dr. Pratibha Stevenson ALT [Catalytic activity/Vol] 25 U/L Normal 16-63 [facility] Comment on above: Performed By: #### L ACT #### [facility] [address] [place] [address] Dr. Pratibha Stevenson Anion gap [Moles/Vol] 11.1 mmol/L Normal [facility] Comment on above: Performed By: #### L ACT #### [facility] [address] [place] [address] Dr. Pratibha Stevenson AST [Catalytic activity/Vol] 16 U/L Normal 15-37 [facility] Comment on above: Performed By: #### L ACT #### [facility] [address] [place] [address] Dr. Pratibha Stevenson Bilirubin [Mass/Vol] 0.5 mg/dL Normal 0.2-1.0 [facility] Comment on above: Performed By: #### L ACT #### [facility] [address] [address] [address] Pratibha Stevenson Calcium [Mass/Vol] 8.6 mg/dL Normal 8.5-10.1 [facility] Comment on above: Performed By: #### L ACT #### [facility] [address] [address] [address] Pratibha Stevenson Chloride [Moles/Vol] 105 mmol/L Normal 98-107 [facility] Comment on above: Performed By: #### L ACT #### [facility] [address] [address] [address] Pratibha Stevenson CO2 [Moles/Vol] 26.6 mmol/L Normal 21.0-32.0 [facility] Comment on above: Performed By: #### L ACT #### [facility] [address] [address] [address] Pratibha Stevenson Creatinine [Mass/Vol] 1.12 mg/dL Normal 0.70-1.30 [facility] Comment on above: Performed By: #### L ACT #### [facility] [address] [address] [address] Pratibha Stevenson EGFR-AF PALESTINIAN >60 Normal >=60 [facility] Comment on above: Performed By: #### L ACT #### [facility] [address] [place] [address] Dr. Pratibha Stevenson EGFR-NON AF PALESTINIAN >60 Normal >=60 [facility] Comment on above: Performed By: #### L ACT #### [facility] [address] [address] [address] Pratibha Stevenson Globulin (S) [Mass/Vol] 2.7 g/dL Normal [facility] Comment on above: Performed By: #### L ACT #### [facility] [address] [place] [address] Dr. Pratibha Stevenson Glucose [Mass/Vol] 86 mg/dL Normal 74-106 [facility] Comment on above: Performed By: #### L ACT #### [facility] [address] [address] [address] Pratibha Stevenson Potassium [Moles/Vol] 3.7 mmol/L Normal 3.5-5.1 [facility] Comment on above: Performed By: #### L ACT #### [facility] [address] [address] [address] Pratibha Stevenson Protein [Mass/Vol] 5.8 g/dL Critically low 6.4-8.2 [facility] Comment on above: Performed By: #### L ACT #### [facility] [address] [address] [address] Pratibha Stevenson Sodium [Moles/Vol] 139 mmol/L Normal 136-145 [facility] Comment on above: Performed By: #### L ACT #### [facility] [address] [place] [address] Dr. Pratibha Stevenson Urea nitrogen [Mass/Vol] 12.0 mg/dL Normal 7.0-18.0 [facility] Comment on above: Performed By: #### L ACT #### [facility] [address] [place] [address] Dr. Pratibha Stevenson Urea nitrogen/Creatinine [Mass ratio] 10.7 mg/mg Normal [facility] Comment on above: Performed By: #### L ACT #### [facility] [address] [place], [place] [id number] Dr. Pratibha Stevenson US KIDNEYSon 05-10-2022 US [...] SAUMYA MARSH Date: 2022-05-10 08:37 Normal [facility] XR KUB 1 VIEWon 05-10-2022 [...] MAUREEN GARDNER Date: 2022-05-10 06:55 Normal [facility] AMYLASEon 05-09-2022 Amylase [Catalytic activity/Vol] 44 U/L Normal 25-115 [facility] Comment on above: Performed By: #### C BC #### [facility] [address] [place] [address] Dr. Pratibha Stevenson CBC AUTO DIFFon 05-09-2022 BASO # 0.1 103/ul Normal 0.0-0.1 [facility] Comment on above: Performed By: #### S SCRN, GRASTCX #### [facility] [address] [address] [address] Pratibha Stevenson Basophils/100 WBC (Bld) 0.9 % Normal 0.2-2.0 [facility] Comment on above: Performed By: #### S SCRN, GRASTCX #### [facility] [address] [address] [address] Pratibha Stevenson EO # 0.2 103/ul Normal 0.0-0.7 [facility] Comment on above: Performed By: #### S SCRN, GRASTCX #### [facility] [address] [place] [address] Dr. Pratibha Stevenson Eosinophils/100 WBC (Bld) 2.6 % Normal 0.9-7.0 [facility] Comment on above: Performed By: #### S SCRN, GRASTCX #### [facility] [address] [place] [address] Dr. Pratibha Stevenson Erythrocyte distribution width (RBC) [Ratio] 11.9 % Normal 11.0-15.0 [facility] Comment on above: Performed By: #### S JOSE ARMANDO GRASTCX #### [facility] [address] [place] [address] Dr. Pratibha Stevenson Hematocrit (Bld) [Volume fraction] 38.8 % Critically low 42.0-54.0 [facility] Comment on above: Performed By: #### S JOSE ARMANDO GRASTCX #### [facility] [address] [place] [address] Dr. Pratibha Stevenson Hemoglobin (Bld) [Mass/Vol] 13.9 g/dL Critically low 14.0-18.0 [facility] Comment on above: Performed By: #### S JOSE ARMANDO GRASTCX #### [facility] [address] [place] [address] Dr. Pratibha Stevenson IG # 0.02 10e3/ul Normal 0.00-0.03 [facility] Comment on above: Performed By: #### S JOSE ARMANDO GRASTCX #### [facility] [address] [place] [address] Dr. Pratibha Stevenson IG % 0.4 % Normal 0.0-0.5 [facility] Comment on above: Performed By: #### S JOSE ARMANDO GRASTCX #### [facility] [address] [place] [address] Dr. Pratibha Stevenson LYMPH # 2.0 103/ul Normal 1.2-3.8 [facility] Comment on above: Performed By: #### S JOSE ARMANDO GRASTCX #### [facility] [address] [place] [address] Dr. Pratibha Stevenson Lymphocytes/100 WBC (Bld) 34.9 % Normal 20.5-60.0 [facility] Comment on above: Performed By: #### S SCRN, GRASTCX #### [facility] [address] [place] [address] Dr. Pratibha Stevenson MANUAL DIFF REQ NO Normal [facility] Comment on above: Performed By: #### S SCRN, GRASTCX #### [facility] [address] [place] [address] Dr. Pratibha Stevenson MCH (RBC) [Entitic mass] 31.0 pg Normal 25.9-34.0 [facility] Comment on above: Performed By: #### S SCRN, GRASTCX #### [facility] [address] [place] [address] Dr. Pratibha Stevenson MCHC (RBC) [Mass/Vol] 35.8 g/dL Critically high 29.9-35.2 [facility] Comment on above: Performed By: #### S JOSE ARMANDO, GRASTCX #### [facility] [address] [place] [address] Dr. Pratibha Stevenson MCV (RBC) [Entitic vol] 86.6 fL Normal 80.0-94.0 [facility] Comment on above: Performed By: #### S SCRN, GRASTCX #### [facility] [address] [place] [address] Dr. Pratibha Stevenson MONO # 0.4 103/ul Normal 0.3-0.8 [facility] Comment on above: Performed By: #### S SCRN, GRASTCX #### [facility] [address] [place] [address] Dr. Pratibha Stevenson Monocytes/100 WBC (Bld) 6.2 % Normal 1.7-12.0 [facility] Comment on above: Performed By: #### S SCRN, GRASTCX #### [facility] [address] [place] [address] Dr. Pratibha Stevenson NEUT # 3.1 103/ul Normal 1.4-6.5 [facility] Comment on above: Performed By: #### S SCRN, GRASTCX #### [facility] [address] [place] [address] Dr. Pratibha Stevenson Neutrophils/100 WBC (Bld) 55.0 % Normal 43.0-75.0 [facility] Comment on above: Performed By: #### S SCRN, GRASTCX #### [facility] [address] [place] [address] Dr. Pratibha Stevenson Platelet mean volume (Bld) [Entitic vol] 9.7 fL Normal 9.5-13.5 [facility] Comment on above: Performed By: #### S SCRN, GRASTCX #### [facility] [address] [place] [address] Dr. Pratibha Stevenson PLT 201 103/ul Normal 150-450 [facility] Comment on above: Performed By: #### S SCRN, GRASTCX #### [facility] [address] [place] [address] Dr. Pratibha Stevenson RBC 4.48 106/ul Critically low 4.70-6.10 [facility] Comment on above: Performed By: #### S SCRN, GRASTCX #### [facility] [address] [place] [address] Dr. Pratibha Stevenson WBC 5.7 103/ul Normal 4.0-11.0 [facility] Comment on above: Performed By: #### S SCRN, GRASTCX #### [facility] [address] [place] [address] Dr. Pratibha Stevenson CULTURE URINEon 05-09-2022 CULTURE URINE Culture Observations : NO GROWTH. Normal [facility] Comment on above: Performed By: #### C BC #### [facility] [address] [place] [address] Dr. Pratibha Stevenson LIPASEon 05-09-2022 Lipase [Catalytic activity/Vol] 98.0 U/L Normal 73.0-393.0 [facility] Comment on above: Performed By: #### C BC #### [facility] [address] [place] [address] Dr. Pratibha Stevenson PROF 14(COMP METB)on 023 Albumin [Mass/Vol] 3.2 g/dL Critically low 3.4-5.0 [facility] Comment on above: Performed By: #### C BC #### [facility] [address] [place] [address] Dr. Pratibha Stevenson Albumin/Globulin [Mass ratio] 1.3 {ratio} Normal [facility] Comment on above: Performed By: #### C BC #### [facility] [address] [place] [address] Dr. Pratibha Stevenson ALP [Catalytic activity/Vol] 74 U/L Normal 46-116 [facility] Comment on above: Performed By: #### C BC #### [facility] [address] [place] [address] Dr. Pratibha Stevenson ALT [Catalytic activity/Vol] 25 U/L Normal 16-63 [facility] Comment on above: Performed By: #### C BC #### [facility] [address] [place] [address] Dr. Pratibha Stevenson Anion gap [Moles/Vol] 10.7 mmol/L Normal [facility] Comment on above: Performed By: #### C BC #### [facility] [address] [place] [address] Dr. Pratibha Stevenson AST [Catalytic activity/Vol] 18 U/L Normal 15-37 [facility] Comment on above: Performed By: #### C BC #### [facility] [address] [place] [address] Dr. Pratibha Stevenson Bilirubin [Mass/Vol] 0.7 mg/dL Normal 0.2-1.0 [facility] Comment on above: Performed By: #### C BC #### [facility] [address] [place] [address] Dr. Pratibha Stevenson Calcium [Mass/Vol] 8.5 mg/dL Normal 8.5-10.1 [facility] Comment on above: Performed By: #### C BC #### [facility] [address] [place] [address] Dr. Pratibha Stevenson Chloride [Moles/Vol] 106 mmol/L Normal 98-107 [facility] Comment on above: Performed By: #### C BC #### [facility] [address] [address] [address] Pratibha Stevenson CO2 [Moles/Vol] 27.1 mmol/L Normal 21.0-32.0 [facility] Comment on above: Performed By: #### C BC #### [facility] [address] [address] [address] Pratibha Stevenson Creatinine [Mass/Vol] 1.16 mg/dL Normal 0.70-1.30 [facility] Comment on above: Performed By: #### C BC #### [facility] [address] [place] [address] Dr. Pratibha Stevenson EGFR-AF PALESTINIAN >60 Normal >=60 [facility] Comment on above: Performed By: #### C BC #### [facility] [address] [place] [address] Dr. Pratibha Stevenson EGFR-NON AF PALESTINIAN >60 Normal >=60 [facility] Comment on above: Performed By: #### C BC #### [facility] [address] [place] [address] Dr. Praitbha Stevenson Globulin (S) [Mass/Vol] 2.5 g/dL Normal [facility] Comment on above: Performed By: #### C BC #### [facility] [address] [place] [address] Dr. Pratibha Stevenson Glucose [Mass/Vol] 90 mg/dL Normal 74-106 [facility] Comment on above: Performed By: #### C BC #### [facility] [address] [place] [address] Dr. Pratibha Stevenson Potassium [Moles/Vol] 3.8 mmol/L Normal 3.5-5.1 [facility] Comment on above: Performed By: #### C BC #### [facility] [address] [place] [address] Dr. Pratibha Stevenson Protein [Mass/Vol] 5.7 g/dL Critically low 6.4-8.2 [facility] Comment on above: Performed By: #### C BC #### [facility] [address] [place], [place] [address] Dr. Pratibha Stevenson Sodium [Moles/Vol] 140 mmol/L Normal 136-145 [facility] Comment on above: Performed By: #### C BC #### [facility] [address] [place], [place] [address] Dr. Pratibha Stevenson Urea nitrogen [Mass/Vol] 12.0 mg/dL Normal 7.0-18.0 [facility] Comment on above: Performed By: #### C BC #### [facility] [address] [address] [address] Pratibha Stevenson Urea nitrogen/Creatinine [Mass ratio] 10.3 mg/mg Normal [facility] Comment on above: Performed By: #### C BC #### [facility] [address] [address] [address] Pratibha Stevenson XR KUB 1 VIEWon [...] EDIS HERNÁNDEZ Date: 2022-05-09 05:31 Normal [facility] CBC AUTO DIFFon 05-08-2022 BASO # 0.1 103/ul Normal 0.0-0.1 [facility] Comment on above: Performed By: #### C BC #### [facility] [address] [address] [address] Pratibha Stevenson Basophils/100 WBC (Bld) 0.4 % Normal 0.2-2.0 [facility] Comment on above: Performed By: #### C BC #### [facility] [address] [address] [address] Pratibha Stevenson EO # 0.1 103/ul Normal 0.0-0.7 [facility] Comment on above: Performed By: #### C BC #### [facility] [address] [place] [address] Dr. Pratibha Stevenson Eosinophils/100 WBC (Bld) 1.0 % Normal 0.9-7.0 [facility] Comment on above: Performed By: #### C BC #### [facility] [address] [place] [address] Dr. Pratibha Stevenson Erythrocyte distribution width (RBC) [Ratio] 11.9 % Normal 11.0-15.0 [facility] Comment on above: Performed By: #### C BC #### [facility] [address] [place] [address] Dr. Pratibha Stevenson Hematocrit (Bld) [Volume fraction] 47.4 % Normal 42.0-54.0 [facility] Comment on above: Performed By: #### C BC #### [facility] [address] [place] [address] Dr. Pratibha Stevenson Hemoglobin (Bld) [Mass/Vol] 17.3 g/dL Normal 14.0-18.0 [facility] Comment on above: Performed By: #### C BC #### [facility] [address] [place] [address] Dr. Pratibha Stevenson IG # 0.05 10e3/ul Critically high 0.00-0.03 [facility] Comment on above: Performed By: #### C BC #### [facility] [address] [place] [address] Dr. Pratibha Stevenson IG % 0.4 % Normal 0.0-0.5 [facility] Comment on above: Performed By: #### C BC #### [facility] [address] [place] [address] Dr. Pratibha Stevenson LYMPH # 2.4 103/ul Normal 1.2-3.8 [facility] Comment on above: Performed By: #### C BC #### [facility] [address] [place] [address] Dr. Pratibha Stevenson Lymphocytes/100 WBC (Bld) 18.6 % Critically low 20.5-60.0 [facility] Comment on above: Performed By: #### C BC #### [facility] [address] [place] [address] Dr. Pratibha Stevenson MANUAL DIFF REQ NO Normal [facility] Comment on above: Performed By: #### C BC #### [facility] [address] [place] [address] Dr. Pratibha Stevenson MCH (RBC) [Entitic mass] 31.3 pg Normal 25.9-34.0 [facility] Comment on above: Performed By: #### C BC #### [facility] [address] [place] [address] Dr. Pratibha Stevenson MCHC (RBC) [Mass/Vol] 36.5 g/dL Critically high 29.9-35.2 [facility] Comment on above: Performed By: #### C BC #### [facility] [address] [place] [address] Dr. Pratibha Stevenson MCV (RBC) [Entitic vol] 85.7 fL Normal 80.0-94.0 [facility] Comment on above: Performed By: #### C BC #### [facility] [address] [place] [address] Dr. Pratibha Stevenson MONO # 0.6 103/ul Normal 0.3-0.8 [facility] Comment on above: Performed By: #### C BC #### [facility] [address] [place] [address] Dr. Pratibha Stevenson Monocytes/100 WBC (Bld) 5.0 % Normal 1.7-12.0 [facility] Comment on above: Performed By: #### C BC #### [facility] [address] [place] [address] Dr. Pratibha Stevenson NEUT # 9.6 103/ul Critically high 1.4-6.[address] [facility] Comment on above: Performed By: #### C BC #### [facility] [address] [place] [address] Dr. Pratibha Stevenson Neutrophils/100 WBC (Bld) 74.6 % Normal 43.0-75.0 [facility] Comment on above: Performed By: #### C BC #### [facility] [address] [place] [address] Dr. Pratibha Stevenson Platelet mean volume (Bld) [Entitic vol] 9.6 fL Normal 9.5-13.5 [facility] [place] [facility] [facility] Comment on above: Performed By: #### C BC #### [facility] [address] [place] [address] Dr. Pratibha Stevenson PLT 286 103/ul Normal 150-450 [facility] Comment on above: Performed By: #### C BC #### [facility] [address] [place] [address] Dr. Pratibha Stevenson RBC 5.53 106/ul Normal 4.70-6.10 [facility] Comment on above: Performed By: #### C BC #### [facility] [address] [place] [address] Dr. Pratibha Stevenson WBC 12.8 103/ul Critically high 4.0-11.0 [facility] Comment on above: Performed By: #### C BC #### [facility] [address] [place] [address] ABD/PELV W CONon [...] CHAGO ROLLINS Date: 2022-05-08 18:37 Normal [facility]on SARS-CoV-2 (COVID-19) RNA MARIKA+probe Ql (Unsp spec) Not detected Normal NOT DETECTED [facility] Comment on above: Result [...] for this test is supported by the [employer] Director of Health and Human Service's declaration that [...] used). Performed By: #### C BC #### [facility] [address] [place] [address] Dr. Pratibha Stevenson ER URINE PROFILEon 3 Bilirubin Ql (U) SMALL Abnormal NEGATIVE [facility] Comment on above: Performed By: #### C BC #### [facility] [address] [place] [address] Dr. Pratibha Stevenson Clarity (U) CLEAR Normal CLEAR [facility] Comment on above: Performed By: #### C BC #### [facility] [address] [place] [address] Dr. Pratibha Stevenson Color (U) DK. ORANGE Abnormal YELLOW [facility] Comment on above: Performed By: #### C BC #### [facility] [address] [place] [address] Dr. Pratibha RIOS A micrscopic examination will be performed if indicated. Normal [facility] Comment on above: Performed By: #### C BC #### [facility] [address] [place] [address] Dr. Pratibha Stevenson Glucose Ql (U) Negative Normal NEGATIVE The [facility] Comment on above: Performed By: #### C BC #### [facility] [address] [place] [address] Dr. Pratibha Stevenson Hemoglobin Ql (U) LARGE Abnormal NEGATIVE [facility] Comment on above: Performed By: #### C BC #### [facility] [address] [place] [address] Dr. Pratibha Stevenson Ketones Ql (U) TRACE Abnormal NEGATIVE [facility] Comment on above: Performed By: #### C BC #### [facility] [address] [place] [address] Dr. Pratibha Stevenson LEUKOCYTES Negative Normal NEGATIVE [facility] Comment on above: Performed By: #### C BC #### [facility] [address] [place] [address] Dr. Pratibha Stevenson Nitrite Ql (U) Negative Normal NEGATIVE The [facility] Comment on above: Performed By: #### C BC #### [facility] [address] [place] [address] Dr. Pratibha Stevenson pH (U) 6.5 [pH] Normal 5-9 [facility] Comment on above: Performed By: #### C BC #### [facility] [address] [place] [address] Dr. Pratibha Stevenson Protein (U) [Mass/Vol] 100 mg/dL Abnormal NEGATIVE/ TRACE [facility] Comment on above: Performed By: #### C BC #### [facility] [address] [place] [address] Dr. Pratibha Stevenson SPEC GRAVITY 1.010 Normal 1.005-<=1.[address] [facility] Comment on above: Performed By: #### C BC #### [facility] [address] [place] [address] Dr. Pratibha Stevenson UR MICRO IND INDICATED Normal [facility] Comment on above: Performed By: #### C BC #### [facility] [address] [place] [address] Dr. Pratibha Stevenson Urobilinogen Qn (U) 1.0 {Butch'U}/dL Normal 0.2 - 1. 0 [facility] Comment on above: Performed By: #### C BC #### [facility] [address] [place] [address] Dr. Partibha Stevenson LIPASEon 05-08-2022 Lipase [Catalytic activity/Vol] 417.0 U/L Critically high 73.0-393.0 [facility] Comment on above: Performed By: #### L ACT #### [facility] [address] [place] [address] Dr. Pratibha Stevenson PROF 14(COMP METB)on 023 Albumin [Mass/Vol] 4.5 g/dL Normal 3.4-5.0 [facility] Comment on above: Performed By: #### L ACT #### [facility] [address] [place] [address] Dr. Pratibha Stevenson Albumin/Globulin [Mass ratio] 1.3 {ratio} Normal [facility] Comment on above: Performed By: #### L ACT #### [facility] [address] [place] [address] Dr. Pratibha Stevenson ALP [Catalytic activity/Vol] 97 U/L Normal 46-116 [facility] Comment on above: Performed By: #### L ACT #### [facility] [address] [place] [address] Dr. Pratibha Stevenson ALT [Catalytic activity/Vol] 35 U/L Normal 16-63 [facility] Comment on above: Performed By: #### L ACT #### [facility] [address] [place] [address] Dr. Pratibha Stevenson Anion gap [Moles/Vol] 13.7 mmol/L Normal [facility] Comment on above: Performed By: #### L ACT #### [facility] [address] [place] [address] Dr. Prtaibha Stevenson AST [Catalytic activity/Vol] 22 U/L Normal 15-37 [facility] Comment on above: Performed By: #### L ACT #### [facility] [address] [place] [address] Dr. Pratibha Stevenson Bilirubin [Mass/Vol] 0.7 mg/dL Normal 0.2-1.0 [facility] Comment on above: Performed By: #### L ACT #### [facility] [address] [place] [address] Dr. Pratibha Stevenson Calcium [Mass/Vol] 9.6 mg/dL Normal 8.5-10.1 [facility] Comment on above: Performed By: #### L ACT #### [facility] [address] [place] [address] Dr. rPatibha Stevenson Chloride [Moles/Vol] 99 mmol/L Normal 98-107 [facility] Comment on above: Performed By: #### L ACT #### [facility] [address] [place] [address] Dr. Pratibha Stevenson CO2 [Moles/Vol] 29.0 mmol/L Normal 21.0-32.0 [facility] Comment on above: Performed By: #### L ACT #### [facility] [address] [place] [address] Dr. Pratibha Stevenson Creatinine [Mass/Vol] 1.43 mg/dL Critically high 0.70-1.30 [facility] Comment on above: Performed By: #### L ACT #### [facility] [address] [address] [address] Pratibha Stevenson EGFR-AF PALESTINIAN >60 Normal >=60 [facility] Comment on above: Performed By: #### L ACT #### [facility] [address] [address] [address] Pratibha Stevenson EGFR-NON AF PALESTINIAN 58 mL/min/1.73m2 Critically low >=60 [facility] Comment on above: Performed By: #### L ACT #### [facility] [address] [address] [address] Pratibha Stevenson Globulin (S) [Mass/Vol] 3.5 g/dL Normal [facility] Comment on above: Performed By: #### L ACT #### [facility] [address] [address] [address] Pratibha Stevenson Glucose [Mass/Vol] 127 mg/dL Critically high 74-106 [facility] Comment on above: Performed By: #### L ACT #### [facility] [address] [address] [address] Pratibha Stevenson Potassium [Moles/Vol] 3.7 mmol/L Normal 3.5-5.1 [facility] Comment on above: Performed By: #### L ACT #### [facility] [address] [address] [address] Pratibha Stevenson Protein [Mass/Vol] 8.0 g/dL Normal 6.4-8.2 [facility] Comment on above: Performed By: #### L ACT #### [facility] [address] [address] [address] Pratibha Stevenson Sodium [Moles/Vol] 138 mmol/L Normal 136-145 [facility] Comment on above: Performed By: #### L ACT #### [facility] [address] [address] [address] Pratibha Stevenson Urea nitrogen [Mass/Vol] 13.0 mg/dL Normal 7.0-18.0 [facility] Comment on above: Performed By: #### L ACT #### [facility] [address] [place] [address] Dr. Pratibha Stevenson Urea nitrogen/Creatinine [Mass ratio] 9.1 mg/mg Normal [facility] Comment on above: Performed By: #### L ACT #### [facility] [address] [place] [address] Dr. Pratibha Stevenson URINE MICROSCOPIC ONLYon BACTERIA NONE SEEN Normal NONE SEEN [facility] Comment on above: Performed By: #### C BC #### [facility] [address] [place] [address] Dr. Pratibha Stevenson Bacteria identified Cx Nom (U) NOT INDICATED Normal [facility] Comment on above: Performed By: #### C BC #### [facility] [address] [place] [address] Dr. Pratibha Stevenson CAST NONE SEEN Normal NONE SEEN [facility] Comment on above: Performed By: #### C BC #### [facility] [address] [place] [address] Dr. Pratibha Stevenson Crystals LM Nom (Urine sed) NONE SEEN Normal NONE SEEN [facility] Comment on above: Performed By: #### C BC #### [facility] [address] [place] [address] Dr. Pratibha Stevenson Epithelial cells LM Ql (Urine sed) FEW Abnormal NONE SEEN /RARE [facility] Comment on above: Performed By: #### C BC #### [facility] [address] [place] [address] Dr. Pratibha Stevenson MUCOUS TRACE Abnormal NONE SEEN [facility] Comment on above: Performed By: #### C BC #### [facility] [address] [place] [address] Dr. Pratibha Stevenson RBC (U) [#/Vol] /uL Abnormal 0-[address] [facility] Comment on above: Performed By: #### C BC #### [facility] [address] [place] [address] Dr. Pratibha Stevenson WBC 2-5 Abnormal NONE SEEN [facility] Comment on above: Performed By: #### C BC #### [facility] [address] [place] [address] Dr. Pratibha Stevenson XR CHEST 1 Von [...] RAMO ZEPEDA Date: 2022-05-08 17:40 Normal [facility] CBC AUTO DIFFon 03-23-2022 BASO # 0.1 103/ul Normal 0.0-0.1 [facility] Comment on above: Performed By: #### C BC #### [facility] [address] [place] [address] Dr. Pratibha Stevenson Basophils/100 WBC (Bld) 0.9 % Normal 0.2-2.0 [facility] Comment on above: Performed By: #### C BC #### [facility] [address] [place] [address] Dr. Pratibha Stevenson EO # 0.1 103/ul Normal 0.0-0.7 [facility] Comment on above: Performed By: #### C BC #### [facility] [address] [place] [address] Dr. Pratibha Stevenson Eosinophils/100 WBC (Bld) 1.7 % Normal 0.9-7.0 [facility] Comment on above: Performed By: #### C BC #### [facility] [address] [place] [address] Dr. Pratibha Stevenson Erythrocyte distribution width (RBC) [Ratio] 12.3 % Normal 11.0-15.0 [facility] Comment on above: Performed By: #### C BC #### [facility] [address] [place] [address] Dr. Pratibha Stevenson Hematocrit (Bld) [Volume fraction] 47.2 % Normal 42.0-54.0 [facility] Comment on above: Performed By: #### C BC #### [facility] [address] [place] [address] Dr. Pratibha Stevenson Hemoglobin (Bld) [Mass/Vol] 16.0 g/dL Normal 14.0-18.0 [facility] Comment on above: Performed By: #### C BC #### [facility] [address] [place] [address] Dr. Pratibha Stevenson IG # 0.03 10e3/ul Normal 0.00-0.03 [facility] Comment on above: Performed By: #### C BC #### [facility] [address] [place] [address] Dr. Pratibha Stevenson IG % 0.4 % Normal 0.0-0.5 [facility] Comment on above: Performed By: #### C BC #### [facility] [address] [place] [address] Dr. Pratibha Stevenson LYMPH # 2.5 103/ul Normal 1.2-3.8 [facility] Comment on above: Performed By: #### C BC #### [facility] [address] [place] [address] Dr. Pratibha Stevenson Lymphocytes/100 WBC (Bld) 30.4 % Normal 20.5-60.0 [facility] Comment on above: Performed By: #### C BC #### [facility] [address] [place] [address] Dr. Pratibha Stevenson MANUAL DIFF REQ NO Normal [facility] Comment on above: Performed By: #### C BC #### [facility] [address] [place] [address] Dr. Pratibha Stevenson MCH (RBC) [Entitic mass] 30.9 pg Normal 25.9-34.0 [facility] Comment on above: Performed By: #### C BC #### [facility] [address] [place] [address] Dr. Pratibha Stevenson MCHC (RBC) [Mass/Vol] 33.9 g/dL Normal 29.9-35.2 [facility] Comment on above: Performed By: #### C BC #### [facility] [address] [place] [address] Dr. Pratibha Stevenson MCV (RBC) [Entitic vol] 91.3 fL Normal 80.0-94.0 [facility] Comment on above: Performed By: #### C BC #### [facility] [address] [place] [address] Dr. Pratibha Stevenson MONO # 0.6 103/ul Normal 0.3-0.8 [facility] Comment on above: Performed By: #### C BC #### [facility] [address] [place] [address] Dr. Pratibha Stevenson Monocytes/100 WBC (Bld) 7.6 % Normal 1.7-12.0 [facility] Comment on above: Performed By: #### C BC #### [facility] [address] [place] [address] Dr. Pratibha Stevenson NEUT # 4.8 103/ul Normal 1.4-6.5 [facility] Comment on above: Performed By: #### C BC #### [facility] [address] [place] [address] Dr. Pratibha Stevenson Neutrophils/100 WBC (Bld) 59.0 % Normal 43.0-75.0 [facility] Comment on above: Performed By: #### C BC #### [facility] [address] [place] [address] Dr. Pratibha Stevenson Platelet mean volume (Bld) [Entitic vol] 10.2 fL Normal 9.5-13.5 [facility] Comment on above: Performed By: #### C BC #### [facility] [address] [place] [address] Dr. Pratibha Stevenson PLT 258 103/ul Normal 150-450 [facility] Comment on above: Performed By: #### C BC #### [facility] [address] [place] [address] Dr. Pratibha Stevenson RBC 5.17 106/ul Normal 4.70-6.10 [facility] Comment on above: Performed By: #### C BC #### [facility] [address] [place] [address] Dr. Pratibha Stevenson WBC 8.1 103/ul Normal 4.0-11.0 [facility] Comment on above: Performed By: #### C BC #### [facility] [address] [place], [place] [address] [address] ABD/PELVIS WO CONon [...] SHARON GODINEZ Date: 2022-03-22 23:40 Normal [facility] PROF 14(COMP METB)on 022 Albumin [Mass/Vol] 4.2 g/dL Normal 3.4-5.0 [facility] Comment on above: Performed By: #### L ACT #### [facility] [address] [place], [place] [address] Dr. Pratibha Stevenson Albumin/Globulin [Mass ratio] 1.2 {ratio} Normal [facility] Comment on above: Performed By: #### L ACT #### [facility] [address] [place], [place] [address] Dr. Pratibha Stevenson ALP [Catalytic activity/Vol] 84 U/L Normal 46-116 [facility] Comment on above: Performed By: #### L ACT #### [facility] [address] [address] [address] Pratibha Stevenson ALT [Catalytic activity/Vol] 32 U/L Normal 16-63 [facility] Comment on above: Performed By: #### L ACT #### [facility] [address] [address] [address] Pratibha Stevenson Anion gap [Moles/Vol] 10.6 mmol/L Normal [facility] Comment on above: Performed By: #### L ACT #### [facility] [address] [address] [address] Pratibha Stevenson AST [Catalytic activity/Vol] 18 U/L Normal 15-37 [facility] Comment on above: Performed By: #### L ACT #### [facility] [address] [address] [address] Pratibha Stevenson Bilirubin [Mass/Vol] 0.4 mg/dL Normal 0.2-1.0 [facility] Comment on above: Performed By: #### L ACT #### [facility] [address] [address] [address] Pratibha Stevenson Calcium [Mass/Vol] 9.8 mg/dL Normal 8.5-10.1 [facility] Comment on above: Performed By: #### L ACT #### [facility] [address] [address] [address] Pratibha Stevenson Chloride [Moles/Vol] 103 mmol/L Normal 98-107 [facility] Comment on above: Performed By: #### L ACT #### [facility] [address] [address] [address] Pratibha Stevenson CO2 [Moles/Vol] 28.2 mmol/L Normal 21.0-32.0 [facility] Comment on above: Performed By: #### L ACT #### [facility] [address] [address] [address] Pratibha Stevenson Creatinine [Mass/Vol] 1.24 mg/dL Normal 0.70-1.30 [facility] Comment on above: Performed By: #### L ACT #### [facility] [address] [address] [address] Pratibha Stevenson EGFR-AF PALESTINIAN >60 Normal >=60 [facility] Comment on above: Performed By: #### L ACT #### [facility] [address] [address] [address] Pratibha Stevenson EGFR-NON AF PALESTINIAN >60 Normal >=60 [facility] Comment on above: Performed By: #### L ACT #### [facility] [address] [address] [address] Pratibha Stevenson Globulin (S) [Mass/Vol] 3.6 g/dL Normal [facility] Comment on above: Performed By: #### L ACT #### [facility] [address] [address] [address] Pratibha Stevenson Glucose [Mass/Vol] 102 mg/dL Normal 74-106 [facility] Comment on above: Performed By: #### L ACT #### [facility] [address] [address] [address] Pratibha Stevenson Potassium [Moles/Vol] 3.8 mmol/L Normal 3.5-5.1 [facility] Comment on above: Performed By: #### L ACT #### [facility] [address] [address] [address] Pratibha Stevenson Protein [Mass/Vol] 7.8 g/dL Normal 6.4-8.2 [facility] Comment on above: Performed By: #### L ACT #### [facility] [address] [address] [address] Pratibha Stevenson Sodium [Moles/Vol] 138 mmol/L Normal 136-145 [facility] Comment on above: Performed By: #### L ACT #### [facility] [address] [address] [address] Pratibha Stevenson Urea nitrogen [Mass/Vol] 18.0 mg/dL Normal 7.0-18.0 [facility] Comment on above: Performed By: #### L ACT #### [facility] [address] [address] [address] Pratibha Stevenson Urea nitrogen/Creatinine [Mass ratio] 14.5 mg/mg Normal [facility] Comment on above: Performed By: #### L ACT #### [facility] [address] [address] [address] Pratibha Stevenson Vital Signs Date Time Vital Sign Value Performing Clinician Janice daniels 06-12-2024 10:48-0500 Body height 175.3 cm Armando Meek PA-C [facility] 06-12-2024 10:48-0500 Body mass index (BMI) [Ratio] 33.82 kg/m2 Armando COREY-Irene Work Phone[facility] 06-12-2024 10:48-0500 Body weight 103.87 kg Armando Meek PA-C Work Phone[facility] 06-12-2024 10:48-0500 Diastolic blood pressure 88 mm[Hg] Armando Meek PA-C Work Phone[facility] 06-12-2024 10:48-0500 Heart rate 69 /min Armando COREY-Irene [facility] 06-12-2024 10:48-0500 Systolic blood pressure 132 mm[Hg] Armando Meek PA-C [facility] 05-17-2024 08:48-0500 Body height 175.3 cm Lisa Ceballos MD Work Phone[facility] 05-17-2024 08:48-0500 Body mass index (BMI) [Ratio] 33.65 kg/m2 Lisa Ceballos MD Work Phone[facility] 05-17-2024 08:48-0500 Body weight 103.42 kg Lisa Ceballos MD Work Phone: [facility] 05-17-2024 08:48-0500 Diastolic blood pressure 68 mm[Hg] Lisa Ceballos MD Work Phone: [facility] 05-17-2024 08:48-0500 Heart rate 75 /min Lisa Ceballos MD Work Phone: [facility] 05-17-2024 08:48-0500 SaO2% (BldA) [Mass fraction] 97 % Lisa Ceballos MD Work Phone: [facility] 05-17-2024 08:48-0500 Systolic blood pressure 100 mm[Hg] Lisa Ceballos MD Work Phone: [facility] 04-19-2024 09:12-0500 Body height 175.3 cm Armando Meek PA-C Work Phone: [facility] 04-19-2024 09:12-0500 Body mass index (BMI) [Ratio] 32.03 kg/m2 Armando Meek PA-C Work Phone: [facility] 04-19-2024 09:12-0500 Body weight 98.43 kg Armando Meek PA-C Work Phone: [facility] 04-19-2024 09:12-0500 Diastolic blood pressure 83 mm[Hg] Armando Meek PA-C Work Phone: [facility] 04-19-2024 09:12-0500 Heart rate 88 /min Armando Meek PA-C Work Phone: [facility] 04-19-2024 09:12-0500 Systolic blood pressure 135 mm[Hg] Armando Meek PA-C Work Phone: [facility] 04-12-2024 15:20-0500 Body height 175.3 cm Ciera Torres MD Work Phone: [facility] 04-12-2024 15:20-0500 Body mass index (BMI) [Ratio] 31.94 kg/m2 Ciera Torres MD Work Phone: [facility] 04-12-2024 15:20-0500 Body temperature 98.1 [degF] Ciera Torres MD Work Phone: [facility] 04-12-2024 15:20-0500 Body weight 98.16 kg Ciera Torres MD Work Phone: [facility] 04-12-2024 15:20-0500 Diastolic blood pressure 78 mm[Hg] Ciera Torres MD Work Phone: [facility] 04-12-2024 15:20-0500 Heart rate 82 /min Ciera Torres MD Work Phone: [facility] 04-12-2024 15:20-0500 SaO2% (BldA) [Mass fraction] 99 % Ciera Torres MD Work Phone: [facility] 04-12-2024 15:20-0500 Systolic blood pressure 123 mm[Hg] Ciera Torres MD Work Phone: [facility] 04-08-2024 10:17-0500 Body height 175.3 cm Lisa Ceballos MD Work Phone: [facility] 04-08-2024 10:17-0500 Body mass index (BMI) [Ratio] 32.34 kg/m2 Lisa Ceballos MD Work Phone: [facility] 04-08-2024 10:17-0500 Body weight 99.34 kg Lisa Ceballos MD Work Phone: [facility] 04-08-2024 10:17-0500 Diastolic blood pressure 86 mm[Hg] Lisa Ceballos MD Work Phone: [facility] 04-08-2024 10:17-0500 Heart rate 80 /min Lisa Ceballos MD Work Phone: [facility] 04-08-2024 10:17-0500 SaO2% (BldA) [Mass fraction] 97 % Lisa Ceballos MD Work Phone: [facility] 04-08-2024 10:17-0500 Systolic blood pressure 118 mm[Hg] Lisa Ceballos MD Work Phone: [employer] 03-26-2024 09:05-0500 Body height 175.3 cm Armando Meek PA-C Work Phone: [employer] 03-26-2024 09:05-0500 Body mass index (BMI) [Ratio] 32.22 kg/m2 Armando Meek [facility]-C [facility] 03-26-2024 09:05-0500 Body weight 98.97 kg Armando Meek PA-C Work [facility] 03-26-2024 09:05-0500 Diastolic blood pressure 66 mm[Hg] Armando Meek PA-C [facility] 03-26-2024 09:05-0500 Heart rate 71 /min Armando Meek PA-C Work Phone: [employer] 03-26-2024 09:05-0500 Systolic blood pressure 124 mm[Hg] Armando Meek PA-C Work Phone: [employer] 03-02-2024 11:02-0400 Body temperature 98.8 [degF] Kym Vidal MD Work Phone: [email or web address] 03-02-2024 11:02-0400 Diastolic blood pressure 72 mm[Hg] Kym Vidal MD Work Phone: [email or web address] 03-02-2024 11:02-0400 Heart rate 83 /min Kym Vidal MD Work Phone: [email or web address] 03-02-2024 11:02-0400 Respiratory rate 16 /min Kym Vidal MD Work Phone: [email or web address] 03-02-2024 11:02-0400 SaO2% (BldA) [Mass fraction] 98 % Kym Vidal MD Work Phone: [email or web address] 03-02-2024 11:02-0400 Systolic blood pressure 120 mm[Hg] Kym Vidal MD Work Phone: [facility] 03-01-2024 03:44-0400 Body mass index (BMI) [Ratio] 31.82 kg/m2 Kym Vidal MD Work Phone: [facility] 03-01-2024 03:44-0400 Body weight 97.75 kg Kym Vidal MD Work Phone: [facility] 02-27-2024 00:30-0400 Body height 175.3 cm Kym Vidal MD Work Phone: [facility] 07-21-2022 08:57-0400 Blood Pressure Location Shirley Lue [facility] 07-21-2022 08:57-0400 Diastolic blood pressure 69 mm[Hg] Shirley Lue [facility] 07-21-2022 08:57-0400 Heart rate 74 /min Shirley Lue [facility] 07-21-2022 08:57-0400 Systolic blood pressure 133 mm[Hg] Shirley Lue [facility] 07-13-2022 09:17-0400 Blood Pressure Location Shirley Lue [facility] 07-13-2022 09:17-0400 Diastolic blood pressure 68 mm[Hg] Shirley Lue [facility] 07-13-2022 09:17-0400 Heart rate 73 /min Shirley Lue [facility] 07-13-2022 09:17-0400 Systolic blood pressure 124 mm[Hg] Shirley Lue [facility] Encounters Encounter Date Encounter Type Care Provider Facility Start: 09-04-2024 End: 09-04-2024 ambulatory Maureen GIRON [facility] Start: 08-20-2024 ambulatory Maureen GIRON Facility:[facility] Start: 07-15-2024 End: 07-16-2024 Refill Amber Marcus RN [facility] Comment on above: Migraine without aur a and without status migrainosus, not intractable Start: 06-13-2024 End: 06-13-2024 Telephone encounter [facility] Comment on above: New Patient Start: 06-12-2024 End: 06-12-2024 Office outpatient visit 40 minutes Armando Meek PA-C Work Phone: [facility] Comment on above: Psychogenic nonepile ptic seizure (Primary Dx); Seizure-like activity (CMS-HCC); Multiple personality disorder (CMS-HCC); Migraine without aura and without status migrainosus, not intractable; Functional tremor Start: 06-12-2024 End: 06-12-2024 ambulatory [facility] Start: 05-30-2024 End: 05-30-2024 Telephone encounter Addie [facility] Comment on above: Seizures Start: 05-17-2024 End: 05-17-2024 Office outpatient visit 15 minutes Lisa Ceballos MD Work Phone: [facility] Comment on above: Recurrent syncope (P rimary Dx) Start: 05-17-2024 End: 05-17-2024 ambulatory [facility] Start: 05-16-2024 End: 05-16-2024 Telephone encounter [facility] Start: 05-09-2024 End: 05-14-2024 ambulatory [facility] Start: 04-19-2024 End: 04-19-2024 ambulatory [facility] Start: 04-19-2024 End: 04-19-2024 Office outpatient visit 25 minutes Armando Meek PA-C Work Phone: [facility] Comment on above: Migraine without aur a and without status migrainosus, not intractable (Primary Dx); Seizure-like activity ([facility]); Functional tremor Start: 04-12-2024 End: 04-12-2024 Office outpatient new 30 minutes Ciera Torres MD Work Phone: Debbi Young [facility] Comment on above: Pancytopenia ([facility]HC C) Start: 04-12-2024 End: 04-17-2024 ambulatory CIERA TORRES [facility] Start: 04-11-2024 End: 04-11-2024 Emergency department patient visit LATRICIA Donovan Carlos [facility] Start: 04-09-2024 End: 04-09-2024 [facility] Start: 04-09-2024 End: 04-09-2024 [facility] Start: 04-08-2024 End: 04-08-2024 Office outpatient new 45 minutes Lisa Ceballos MD Work Phone: [facility] Comment on above: Recurrent syncope (P rimary Dx); Seizure ([facility]) Start: 04-08-2024 End: 04-08-2024 [facility] Start: 04-05-2024 End: 04-05-2024 Telephone encounter Diana Ledbetter CMA [facility] Start: 04-03-2024 End: 04-03-2024 ambulatory ARMANDO Bonilla [facility] Start: 04-01-2024 End: 04-01-2024 Telephone encounter Stefani [facility] Comment on above: information wrong on referral Start: 03-27-2024 End: 04-03-2024 Telephone encounter Oriana [facility] Comment on above: prior authorization Start: 03-26-2024 End: 03-26-2024 ambulatory ARMANDO Bonilla [facility] Start: 03-26-2024 End: 03-26-2024 Office outpatient new 60 minutes Armando Meek PA-C Work Phone: [facility] Comment on above: Seizure ([facility]) (P rimary Dx); Migraine without aura and without status migrainosus, not intractable; Status migrainosus; Recurrent syncope; Pancytopenia (CMS-HCC); Functional tremor Start: 03-25-2024 End: 03-25-2024 [facility]phone [facility] Comment on above: REFERRAL Start: 02-27-2024 End: 03-02-2024 Evaluation and management of inpatient Kym Vidal MD Work Phone: [facility] Comment on above: Pancytopenia (HCC) ( Primary Dx); Hip pain, unspecified laterality Start: 02-26-2024 End: 02-26-2024 Emergency department patient visit [facility] Start: 06-14-2023 End: 06-14-2023 [facility] Start: 06-14-2023 End: 06-14-2023 Subsequent hospital visit by physician Manjit Waller [facility] Comment on above: Arrived Start: 06-12-2023 End: 06-12-2023 ambulatory [facility] Start: 06-12-2023 End: 06-12-2023 Subsequent hospital visit by physician Manjit Waller [facility] Comment on above: Arrived Start: 06-09-2023 End: 06-09-2023 [facility] Start: 06-09-2023 End: 06-09-2023 Subsequent hospital visit by physician Flash Goodwin PTA [facility] Comment on above: Arrived Start: 06-05-2023 End: 06-05-2023 ambulatory JON [facility] Start: 05-31-2023 End: 05-31-2023 ambulatory [facility] Start: 05-29-2023 End: 05-29-2023 ambulatory [facility]ICIA [facility] Start: 05-26-2023 End: 05-26-2023 ambulatory [facility] Start: 05-22-2023 End: 05-22-2023 ambulatory JON [facility] Start: 05-17-2023 End: 05-17-2023 ambulatory LAT[facility]ICIA [facility] Start: 03-13-2023 End: 03-13-2023 ambulatory [facility] Start: 08-11-2022 End: 08-11-[address] LATRICIA GARCIA . Facility:[facility] Start: 07-22-2022 End: 07-23-[address] LATRICIA GARCIA . Facility:[facility] Start: 07-21-2022 End: 07-21-2022 Patient encounter procedure Shirley DonovanJoselin Murrell [facility] Start: 07-20-2022 End: 07-20-[address] LATRICIA GARCIA . Facility:[facility] Start: 07-13-2022 End: 07-13-2022 Patient encounter procedure Shirley Murrell [facility] Start: 07-06-2022 End: 07-07-2022 ambulatory SHIRLEY M JOLLYLala . Facility:[facility] Start: 05-23-2022 End: 05-23-2022 Patient encounter procedure Shirley Murrell [facility] Start: 05-08-2022 End: 05-12-[address] LATRICIA GARCIA . Facility:[facility] Start: 03-23-2022 End: 03-23-[address] LATRICIA GARCIA . Facility:[facility] Procedures Date Procedure Procedure Detail Performing Clinician Start: 06-12-2024 Follow-up visit Follow-up ARMANDO MEEK Start: 04-19-2024 Follow-up visit Follow-up ARMANDO MEEK [...] OF BLOOD SMEAR Jenny Alvarez APRN - MANAGER PLAN Work Phone: Start: 03-01-2024 Rhythm ecg 1-3 leads w/interpretation & report Unknown Provider Result Start: 03-01-2024 MYELOID MALIGNANCIES MUTATION PANEL Ruth Wyman MD Work Phone: Start: 03-01-2024 Diagnostic bone marrow biopsies Jenny Alvarez APRN - MANAGER PLAN Work Phone: Start: 03-01-2024 Rhythm ecg 1-3 leads w/interpretation & report Unknown Provider Result Start: 03-01-2024 Blood count complete auto&auto difrntl wbc Jennysona Alvarez APRN - MANAGER PLAN Work Phone: Start: 03-01-2024 SCAN OF BLOOD SMEAR Jennysona Alvarez APRN - MANAGER PLAN Work Phone: Start: 02-29-2024 End: 02-29-2024 Ecg routine ecg w/least 12 lds i&r only Ruth Wyman MD Work Phone: Start: 02-29-2024 Blood smear peripheral interp phys w/writ report Jenny Alvarez APRN - MANAGER PLAN Work Phone: Start: 02-29-2024 DIAGNOSTIC QUAL BCR-ABL1 ASSAY W REFLEX TO P190 OR P210 QUANT ASSAYS Jenny Alvarez APRN - MANAGER PLAN Work Phone: Start: 02-29-2024 Calcium ionized Maureen Eriberto Forbes D O Work Phone: Start: 02-29-2024 [...] VIRUS (EBV) ANTIBODY PANEL I Yasmin Ambrosio FLARE BREAKER - MANAGER [employer] Work Phone: Start: 02-28-2024 Mri brain brain stem w/o w/contrast material Jenny Gunter FLARE BREAKER - MANAGER [employer] Work Phone: Start: 02-28-2024 End: 02-28-2024 Ecg routine ecg w/least 12 lds trcg only w/o i&r uRth Wyman MD Work Phone: Start: 02-28-2024 Influenza virus A and B RNA and SARS-CoV-2 (COVID-19) N gene panel - Respiratory specimen by MARIKA with probe detection Chapis Rizvi MD Work Phone: Start: 02-28-2024 Antibody hiv-1&hiv-2 single result Chapis Rizvi MD Work Phone: Start: 02-28-2024 Anion gap [Moles/Vol] Jenny S Lyric FLARE BREAKER - MANAGER PLAN Work Phone: Start: 02-28-2024 GLOMERULAR FILTRATION RATE, ESTIMATED Jenny S Gunter FLARE BREAKER - MANAGER PLAN Work Phone: Start: 02-28-2024 Lactate dehydrogenase ldh Ruth Wyman MD Work Phone: Start: 02-27-2024 VITAMIN B12 & FOLATE Yasmin Llanesnathan FLARE BREAKER - MANAGER PLAN Work Phone: Start: 02-27-2024 EEG 24 HOUR AMBULATORY Jenny Gunter FLARE BREAKER - MANAGER PLAN Work Phone: Start: 02-27-2024 Electroencephalogram w/rec awake&asleep Jenny Gunter FLARE BREAKER - MANAGER PLAN Work Phone: Start: 02-27-2024 End: 02-27-2024 C-reactive protein Barak Colon MD Work Phone: Start: 02-27-2024 End: 02-27-2024 Calcium ionized Jenny Gunter AP RN - MANAGER PLAN Work Phone: Start: 02-27-2024 REFERENCE LAB SAMPLE Jenny Gunter A PRN - MANAGER PLAN Work Phone: Start: 02-27-2024 Urnls dip stick/tablet reagent auto microscopy Jenny Gunter FLARE BREAKER - MANAGER PLAN Work Phone: Start: 02-27-2024 End: 02-27-2024 Rhythm ecg 1-3 leads w/interpretation & report Unknown Provider Result Start: 05-23-2022 Cystoscopic removal of ureteric stent Shirley Murrell Start: 05-08-2022 Cystoscopic laser lithotripsy of ureteric calculus Shirley Lulala Plan of Treatment Date Care Activity Detail Author Start: 06-12-2025 Adult BMI Screening Adult BMI Screening [facility] Start: 06-12-2025 Tobacco Screening Tobacco Screening [facility] Start: 05-17-2025 Adult BMI Screening Adult BMI Screening [facility] Start: 05-17-2025 Tobacco Screening Tobacco Screening [facility] Start: 04-19-2025 Adult BMI Screening Adult BMI Screening [facility] Start: 04-19-2025 Tobacco Screening Tobacco Screening [facility] Start: 04-11-2025 Adult BMI Screening Adult BMI Screening [facility] Start: 04-11-2025 Tobacco Screening Tobacco Screening [facility] Start: 04-08-2025 Adult BMI Screening Adult BMI Screening [facility] Start: 03-26-2025 Adult BMI Screening Adult BMI Screening [facility] Start: 03-26-2025 Depression Screening Depression Screening [facility] Start: 09-10-2024 End: 09-10-2024 Patient encounter procedure 09/10/2024 9:00 AM EDT Office Visit [facility] [address] [place] [phone] Armando Meek PA-C [address] [place] [phone] [facility] Start: 08-29-2024 End: 08-29-2024 Patient encounter procedure [facility] Start: 06-19-2024 End: 06-19-2024 Patient encounter procedure 06/19/2024 9:30 AM EST Office Visit [facility] [address] [place] [phone] Armando Meek PA-C [address] [place] [phone] [facility] Start: 06-12-2024 End: 06-12-2024 Patient encounter procedure 06/12/2024 11:00 AM EST Office Visit [facility] [place] [address] [place] [phone] Armando Meek PA-C [address] [place] [address] [facility] Start: 05-17-2024 End: 05-17-2024 Patient encounter procedure 05/17/2024 9:00 AM EST Office Visit [facility] [address] [place] [phone] Lisa Ceballos MD [address] [place] [address] [facility] Start: 04-19-2024 End: 04-19-2024 Patient encounter procedure 04/19/2024 9:00 AM EST Office Visit [facility] [address] [place] [phone] Armando Meek, ADRIANNA [address] [place] [phone] [facility] Start: 04-12-2024 End: 04-12-2024 Patient encounter procedure 04/12/2024 3:30 PM EST Office Visit [facility] - [facility] On[facility] [address] [place] [phone] Ciera Torres MD [address] [place] [address] [address] [place], [place] [phone] [facility] Start: 04-09-2024 End: 04-09-2024 Patient encounter procedure [facility] - Cardiovascular Start: 04-08-2024 End: 04-08-2025 Echo complete W/O contrast Echo complete W/O contrast Echocardiography Routine Recurrent syncope Expected: 04/08/2024, Expires: 04/08/2025 [facility] Work Phone: Comment on above: Expected: 04/08/2024, Expires: Start: 04-08-2024 End: 04-08-2025 Holter monitor study Holter monitor 24-48 hour Cardiac Services Routine Recurrent syncope Expected: 04/08/2024, Expires: 04/08/2025 [facility] [employer] Comment on above: Expected: 04/08/2024, Expires: Start: 04-08-2024 End: 04-08-2024 Patient encounter procedure 04/08/2024 10:30 AM EST Office Visit [facility] [address] [place] [phone] Lisa Ceballos MD [address] [place] [address] [facility] Start: 04-03-2024 End: 04-03-2024 Patient encounter procedure 04/03/2024 1:00 PM EST Appointment [facility] - Neurophysiology [address] [place] [phone] [facility] - Neurophysiology Start: 04-01-2024 End: 03-02-2025 Vitamin B12 & Folate Vitamin B12 & Folate Lab Routine Pancytopenia (HCC) Expected: 04/01/2024 (Approximate), Expires: 03/02/2025 [employer] [facility] [place] Comment on above: Expected: 04/01/2024 (Approximate), Expi res: 03/02/2025 Start: 03-26-2024 End: 03-26-2024 Patient encounter procedure 03/26/2024 9:00 AM EST Office Visit [facility] [address] [facility] [place] [phone] Armando Meek PA-C [address] [place] [phone] [facility] Start: 03-02-2024 End: 03-02-2025 CBC panel - Blood by Automated count CBC Lab Routine Pancytopenia (HCC) Expected: 03/02/2024 (Approximate), Expires: 03/02/2025 [email or web address] Comment on above: Expected: 03/02/2024 (Approximate), Expi res: 03/02/2025 Start: 12-31-2023 COVID-19 Vaccine ( season) COVID-19 Vaccine () [email or web address] Start: 12-31-2023 Influenza vaccination Influenza Vaccine [facility] Start: 11-30-2023 Influenza vaccination Flu vaccine (#1) [facility] Start: 06-26-2023 End: 06-26-2023 Patient encounter procedure 06/26/2023 2:30 PM EST Appointment [facility] [address] [place] [phone] Manjit Waller [facility] Start: 06-23-2023 End: 06-23-2023 Patient encounter procedure 06/23/2023 1:45 PM EST Appointment [facility] [address] [place] [phone] Flash Goodwin PTA [facility] Start: 06-19-2023 End: 06-19-2023 Patient encounter procedure 06/19/2023 3:15 PM EST Appointment [facility] [address] [place] [phone] Manjit Waller [facility] Start: 06-14-2023 End: 06-14-2023 Patient encounter procedure 06/14/2023 3:30 PM EST Appointment [facility] [address] [place] [phone] Manjit Waller [facility] Start: 06-12-2023 End: 06-12-2023 Patient encounter procedure 06/12/2023 3:15 PM EST Appointment [facility] [address] [place] [phone] Manjit Waller [facility] Start: 11-29-2022 Influenza vaccination Flu vaccine (#1) [facility] Start: 08-18-2011 DTaP,Tdap and Td Vaccines (1 - Tdap) DTaP,Tdap and Td Vaccines (1 - Tdap) [facility] Start: 2010 Adult BMI Follow Up Plan Adult BMI Follow Up Plan [facility] Start: 2010 Adult BMI Screening Adult BMI Screening [facility] Start: 2010 Hepatitis C screening Hepatitis C screen [facility] Start: 08-18-2007 HIV screening HIV screen [facility] Start: 2005 Varicella vaccine (1 of 2 - 13+ 2-dose series) Varicella vaccine (1 of 2 - 13+ 2-dose series) [facility] Start: 2004 Depression Screen Depression Screen [facility] Start: 2004 Depression Screening Depression Screening [facility] Start: 2004 Tobacco Screening Tobacco Screening [facility] Start: 08-18-2003 DTaP,Tdap and Td Vaccines (6 - Tdap) DTaP,Tdap and Td Vaccines (6 - Tdap) [facility] Start: 08-18-2003 DTaP/Tdap/Td vaccine (6 - Tdap) DTaP/Tdap/Td vaccine (6 - Tdap) [facility] Start: 1998 Pneumococcal 0-64 years Vaccine (1 of 2 - PCV) Pneumococcal 0-64 years Vaccine (1 of 2 - PCV) [facility] Start: 1993 Varicella vaccine (1 of 2 - 2-dose childhood series) Varicella vaccine (1 of 2 - 2-dose childhood series) [facility] Start: 02-16-1993 COVID-19 Vaccine (#1) COVID-19 Vaccine (#1) [facility] End: 03-03-2024 CBC W Auto Differential panel - Blood CBC with Auto Differential Lab Routine Daily for 3 Days starting 03/01/2024 until 03/03/2024, 2 completed [facility] Comment on above: Daily for 3 Days starting 03/01/2024 unt il 03/03/2024, 2 completed End: 03-01-2024 Chromosome analysis, bone marrow [facility] Comment on above: Once for 1 Occurrences starting 03/01/20 24 until 03/01/2024 Diagnostic Qual BCR- ABL1 Assay w Reflex to p190 or p210 Quant Assaysantitative Assays Diagnostic Qual BCR-ABL1 Assay w Reflex to p190 or p210 Quant Assaysantitative Assays Lab Routine 02/29/2024 5:30 PM EDT [facility] End: 03-26-2025 EEG EEG Neurology Routine Seizure ([facility] Recurrent syncope 1 Occurrences starting 03/26/2024 until 03/26/2025 [facility] Work Phone: Comment on above: 1 Occurrences starting 03/26/2024 until 03/26/2025 End: 02-29-2024 Flow Cytometry Leukemia/Lymphoma, Bone Marrow Flow Cytometry Leukemia/Lymphoma, Bone Marrow Lab Routine One Time for 1 Occurrences starting 02/29/2024 until 02/29/2024 [email or web address] Comment on above: One Time for 1 Occurrences starting 01/31 until 02/29/2024 End: 03-01-2024 Flow Cytometry Leukemia/Lymphoma, Bone Marrow [email or web address] Comment on above: Once for 1 Occurrences starting 03/01/20 until 03/01/2024 End: 03-02-2024 Leukemia / lymphoma phenotype [facility] Work Phone: Comment on above: One Time for 1 Occurrences starting 06/2023 until 03/02/2024 End: 03-01-2024 Myeloid Malignancies Mutation Panel [facility] Comment on above: One Time for 1 Occurrences starting 05/2023 until 03/01/2024 Oxygen therapy [[facility] Data Set] Initiate Oxygen Therapy Protocol Respiratory Care Routine As Needed until discontinued starting 02/27/2024 [facility] Work Phone: Comment on above: As Needed until discontinued starting Immunizations Immunization Date Immunization Notes Care Provider Khushbu thao 12-26-1997 DTaP, unspecified formulation Shirley Lue [facility] 12-26-1997 measles, mumps and rubella virus vaccine Shirley Lue [facility] 01-10-1994 DTaP, unspecified formulation Shirley Lue [facility] 01-10-1994 hepatitis B vaccine, pediatric or pediatric/adolescent dosage Shirley Lue [facility] 01-10-1994 Hib, unspecified formulation Shirley Lue [facility] 01-10-1994 measles, mumps and rubella virus vaccine Shirley Lue [facility] 03-12-1993 Hib, unspecified formulation Shirley Lue [facility] 01-01-1993 hepatitis B vaccine, pediatric or pediatric/adolescent dosage Shirley Lue [facility] 01-01-1993 Hib, unspecified formulation Shirley Lue [facility] 1992 hepatitis B vaccine, pediatric or pediatric/adolescent dosage Shirley Lue [facility] 1992 Hib, unspecified formulation Shirley Lue [facility] Payers Date Payer Category Payer Medicaid HMO [employer] [id number] 2024 Medicaid [id number] 1992 Unknown [id number] 2.16.840.1.877196.3.579.2.593 1992 Unknown [id number] 2.16.840.1.860724.3.579.2.593 1992 Unknown [id number] 2.16.840.1.351471.3.579.2.593 1992 Unknown [id number] 2.16.840.1.344891.3.579.2.593 1992 Unknown [id number] 2.16.840.1.037509.3.579.2.593 1992 Unknown [id number] 2.16.840.1.609533.3.579.2.593 1992 Unknown [id number] 2.16.840.1.410771.3.579.2.173 1992 Unknown [id number] 2.16.840.1.556812.3.579.2.173 1992 Unknown [id number] 2.16.840.1.894830.3.579.2.173 1992 Unknown [id number] 2.16840.1.174172.3.579.2.173 1992 Unknown [id number] 2.16.840.1.531184.3.579.2.173 1992 Unknown [id number] 2.16.840.1.007384.3.579.2.173 1992 Unknown [id number] 2.16.840.1.818742.3.579.2.173 1992 Unknown [id number] 2.16840.1.017022.3.579.2.173 1992 Unknown [id number] 2.16.840.1.304650.3.579.2.173 1992 Unknown [id number] 2.16.840.1.342924.3.579.2.173 1992 Unknown [id number] 2.16.840.1.290020.3.579.2.173 1992 Unknown [id number] 2.16.840.1.031796.3.579.2.1286 1992 Unknown [id number] 2.16.840.1.062142.3.579.2.1286 1992 Unknown [id number] 2.16.840.1.839263.3.579.2.1286 1992 Unknown [id number] 2.16.840.1.427156.3.579.2.1286 1992 Unknown [id number] 2.16.840.1.556104.3.579.2.1285 1992 Unknown [id number] 2.16.840.1.439835.3.579.2.1286 1992 Unknown [id number] 2.16.840.1.927895.3.579.2.128 1992 Unknown [id number] 2.16.840.1.920718.3.579.2.1285 1992 Unknown [id number] 2.16.840.1.175075.3.579.2.1285 1992 Unknown [id number] 2.16.840.1.038073.3.579.2.1285 1992 Unknown [id number] 2.16.840.1.191765.3.579.2.1285 1992 Unknown [id number] 2.16.840.1.116201.3.579.2.727 1959 Self-pay [id number] 1959 Unknown [id number] Social History Date Type Detail Facility Tobacco smoking status [facility] Start: 06-11-2020 End: 02-27-2024 Sex Assigned At Male [facility] Start: 07-13-2022 End: 07-21-2022 Tobacco smoking status Light tobacco smoker (finding) [facility] Tobacco smoking status Never [facility] Tobacco smoking stat [facility] Tobacco smoking consumption unknown [facility] Start: 1990 Sex Assigned At Not on file [facility] Start: 02-26-2024 [email or web address] Start: 01-30-2024 History of tobacco use Cigarette Smo ker [email or web address] Start: 02-26-2024 End: 03-26-2024 Tobacco use and exposure Former smokeless tobacco user [email or web address] Start: 03-01-2024 End: 06-12-2024 Alcoholic beverage intake Ex-drinker (finding) [facility] Start: 06-11-2020 End: 02-27-2024 History of Social function [facility] Has the [employer], oil, or water 10X10 Room threatened to shut off services in your home in past 12Mo No [facility] (I/We) worried fanta goodrich (my/our) food would run out before (I/we) got money to buy more. Never true [facility] Start: 03-26-2024 Tobacco smoking stat [facility] Ex-smoker [facility] Start: 01-30-2024 History of tobacco use Current smoke r [employer] [facility] Start: 12-04-2014 Sex Male (finding) [facility] Functional Status Date Assessment Result Facility 07-21-2022 Functional Status N/A [facility] 07-13-2022 Functional Status N/A [facility] 05-12-2022 Functional Status N/A [facility] Clinical Notes 07-13-2022 to 09-04-2024 Telephone Encounter - Amber Marcus RN - 07/15/2024 8:15 AM EDTTelephone Encounter - Amber Marcus RN - 07/15/2024 8:15 AM EDTTelephone Encounter - Janeth Welch - 06/13/2024 9:24 AM EST Note Date & Type Note Facility 09-04-2024 Note General Surgery Offi ce/Clinic Note Chief Complaint consultation for masses HPI Staff 34 year old male presents on consultation from Dr. Garcia for mass to right leg and right arm. Reports noting small, reddish colored mass to right upper arm several years ago. Does not believe this has changed in size since first noted. Denies soreness or tenderness. Verbalized he noted small, reddish colored mass to right lower leg several months ago. Verbalized this has slightly grown in size and occasionally is sore. History of Present Illness 34 yo male with h/o migraines, personality d/o, nephrolithiasis, referred for skin lesions on right arm and right leg; lesions present for several years; no change in size, no pain or bleeding, no pigmentation change; no h/o other similar lesions excised in past; no h/o skin cancer. Review of Systems PHQ Score Initial Depression Screen Score: 0 SCORE ROS - Provider Constitutional: no fever, no sweats, no weight loss. Eyes: no glasses, no blurred vision, no visual loss. ENMT: no dentures, no hoarseness, no swallowing difficulties, no hearing loss, no ear infection(s), no nose bleeds. Cardiovascular: normal blood pressure, no chest pain, regular heartbeat, no heart murmur. Respiratory: no shortness of breath, no cough, no asthma, no wheezing. Gastrointestinal: no nausea, no vomiting, no diarrhea, no constipation, no blood in stool, no change in bowel habits, no abdominal pain, no hepatitis. Genitourinary: no kidney stones, no urine infection, no dysuria. Musculoskeletal: no pain, no weakness. Skin: no changing moles, no rash, no skin lumps. Neurologic: no seizures, no epilepsy, no headache. Psychiatric: no emotional or psychiatric problem. Heme/Lymph: no bleeding problems, no anemia, no blood clots, no transfusions. Allergy/Immunologic: no swollen lymph nodes/glands, no IV drug abuse. Other: Additional ROS info: Except as noted in the above Review of Systems and in the History of Present Illness, all other systems have been reviewed and are negative or noncontributory. Physical Exam Vitals & Measurements HR: 72(Peripheral) RR: 16 BP: 138/84 HT: 69 in HT: 175 cm WT: 228.178 lb WT: 103.5 kg BMI: 33.8 HEENT: normal conjunctiva, sclera clear, no scleral icterus, EOM intact, PERRLA, oral mucosa moist without lesions. Neck: trachea midline, no mass, symmetric, no thyromegaly or nodules, no adenopathy Respiratory: lungs CTA, respirations non labored. Cardiovascular: regular rate and rhythm, no murmur, no pedal edema or varicosities. Musculoskeletal: normal gait, digits and nails without infection, nodes, cyanosis, clubbing. Skin: no rashes, no lesions, no ulcers, right posterior upper extremity with 3 mm dermal nodule, nontender, no pigmentation change; no ulceration or scab; right lower extremity with 4 mm raised, round nonpigmented lesion, nontender, no scab or ulceration. Psychiatric/Neuro: oriented to time, place, person, judgement normal, affect appropriate for age, insight intact, no focal deficits. Tests: review of old records completed , Assessment/Plan 1. Skin lesions (L98.9: Disorder of the skin and subcutaneous tissue, unspecified) likely granulomas verses dermatofibroma; recommend observation for now since asymptomatic; no suspicious features; call with problems/questions. Follow-up No qualifying data available Problem List/Past Medical History Ongoing BMI 33.0-33.9,adult Herpes simplex History of kidney stones Migraines Multiple personality disorder Neutropenia Pancytopenia Skin lesions Ureteral stone Vascular insufficiency Historical No qualifying data Procedure/Surgical History Cystoscopic removal of ureteric stent (05/23/2022), Cystoscopic laser lithotripsy of ureteric calculus (05/08/2022), Arthrotomy of knee, Excision of intradermal nevus, Fracture of nasal bones, Ingrown toenail. Medications Ajovy 225 mg/1.5 mL subcutaneous solution, 225 mg, SubCutaneous, qMonth fludrocortisone 0.1 mg Tab, 0.1 mg= 1 tab(s), Oral, BID Nurtec ODT 75 mg oral tablet, disintegrating, 75 mg= 1 tab(s), SubLingual, Once topiramate 50 mg Tab, 50 mg= 1 tab(s), Oral, Daily Zofran 4 mg Tab, 4 mg= 1 tab(s), Oral, q6hr, PRN Allergies naproxen (Gastrointestinal upset) Social History Alcohol Never., 09/03/2024 Substance Abuse Current, Marijuana, Daily, 09/04/2024 Tobacco 10 or more cigarettes (1/2 pack or more)/day in last 30 days Tobacco Use:. Never Smokeless Tobacco Use:. Cigarettes, 0.5 per day. Started age 17.0 Years. Yes, 09/04/2024 Family History Arthritis: Father. COPD: Mother. Heart disease: Father. High cholesterol: Father. Hypertension: Father. Immunizations Vaccine Date Status measles/mumps/rubella virus vaccine 12/26/1997 Recorded DTaP, unspecified formulation 12/26/1997 Recorded measles/mumps/rubella virus vaccine 01/10/1994 Recorded hepatitis B pediatric vaccine 01/10/1994 Recorded Hib, unspecified formulation 01/10/1994 (more content not included)... [facility] Comment on above: Result Comment: Elec tronically Signed By: BREE WILEY, Maureen Jalloh\\Date and Time Signed: 09/04/24 15:08 EDT 07-15-2024 Miscellaneous Notes Patient requesting Propranolol LA script be sent to pharmacy. Medication reviewed by RN and pended to Jassi. documented in this encounter [facility] 07-15-2024 Telephone encounter Note Patient requesting Propranolol LA script be sent to pharmacy. Medication reviewed by RN and pended to Jassi. [facility] 06-13-2024 Miscellaneous Notes PA chary Jonas pending on CMM with genao # [id number] [id number] valid till 09/08/24 documented in this encounter [facility] 06-13-2024 Telephone encounter Note PA for Peggyy pending on CMM with genao # [id number] [facility] 06-13-2024 Telephone encounter Note Approved with [facility] case # [id number] valid till 09/08/24 [facility] 06-13-2024 Miscellaneous Notes 1. IS THIS DUE TO AN ACCIDENT? -No 2. IS THIS WORKER'S COMP? PLEASE VERIFY IF THIS IS WORKERS COMP AND DOCUMENT (We do not accept any new workers comp cases) -No 3. WHAT INSURANCE? [place] 4. HAVE YOU EVER BEEN SEEN BY A NEUROLOGIST BEFORE? IF YES, WHO AND WHEN? IS THIS A SECOND OPINION? -Yes, different dx 5. ANY CHANCE OF NOW OR BEFORE YOUR APPOINTMENT? -N/a 6. OFFERED JOSE FOR SOONER APPOINTMENT? -Soonest appointment 7. PATIENT IS SCHEDULED ON/WITH: -Next Appt: 08/29/2024 09:30 - HEMA JOSE MD 8. WHO CALLED TO SCHEDULE APPOINTMENT? -Patient documented [facility] this encounter [facility] 06-13-2024 Telephone encounter Note 1. IS THIS DUE TO AN ACCIDENT? -No 2. IS THIS WORKER'S COMP? PLEASE VERIFY IF THIS IS WORKERS COMP AND DOCUMENT (We do not accept any new workers comp cases) -No 3. WHAT INSURANCE? [place] 4. HAVE YOU EVER BEEN SEEN BY A NEUROLOGIST BEFORE? IF YES, WHO AND WHEN? IS THIS A SECOND OPINION? -Yes, different dx 5. ANY CHANCE OF NOW OR BEFORE YOUR APPOINTMENT? -N/a 6. OFFERED JOSE FOR SOONER APPOINTMENT? -Soonest appointment 7. PATIENT IS SCHEDULED ON/WITH: -Next Appt: 08/29/2024 09:30 - HEMA JOSE MD 8. WHO CALLED TO SCHEDULE APPOINTMENT? -[facility] History of Present illness Narrative [facility] Neurology Office Note 06/11/2024 8:54 PM Patient info: Ethan Donald is a 33 y.o. male Account No.: [id number] Acct: : 1990 PCP: LATRICIA GARCIA MD Chief Complaint: Patient, 33 year old male, presents today for initial Neurological evaluation regarding seizure-like activity and headaches. Last seen in the office on 04/19/24 Ethan is present in the office today with his girlfriend. Interval Hx: At last office visit (04/19/24) decided to wean off Topiramate (50 mg HS for 5 days then discontinue). We started Propranolol LA 60 mg every evening for BROOKS/migraine prevention. We continued Nurtec ODT 75 mg for abortive/symptomatic migraine relief. Ethan continues to have frequent migrainous BROOKS's. He says they are not as bad as they were (prior to starting Propranolol LA) but still quite frequent; at least 2-3 per week. Notably, his BP on 05/17/24 was documented at 100/68, so increasing the Propranolol LA dose may not be a good option. Nurtec ODT works well for abortive/symptomatic relief; only gets 8 tabs per month, though. Further evaluation with Cardiology, including Holter Monitor, has been completed since last office visit (04/19/24). Holter Monitor was normal despite having at least 1 episode of loss of consciousness during the study. Echocardiogram was normal as well. 72 hr. Ambulatory EEG was completed on 05/09/24-05/12/24. This is a normal EEG recording. No epileptiform discharges or lateralizing signs were seen. Absence of epileptiform discharges does not exclude the diagnosis of epilepsy. Multiple episodes of slumping over of head, or sudden falls were recorded, and none of them was associated with any epileptiform activity on the EEG, or any significant change in the EKG rhythm. Ethan continues to have frequent episodes of loss of consciousness/alteration of awareness. Some episodes include jerking and convulsing, while other ones include him going limp for a short period of time. Sometimes he vomits afterwards as well. Today as we were finishing up our office visit, Ethan looked straight forward (slightly away from me) briefly and then his head slumped down. He was unresponsive to verbal stimulus as well as rubbing of his shoulders. This lasted for approximately 15-20 seconds prior to snorting and opening his eyes and sitting up straight. Notably, his breathing and radial pulse remained normal during the above mentioned time. He was noted to not be postictal, as he was able to answer questions appropriately and was fully oriented. He was able to get up out of the chair under his own power and ambulate out of the office without any assistance. While here today, Ethan mentions that he believes he has multiple personality disorder. He has not been formally diagnosed. Current preventative BROOKS/migraine medication: Propranolol LA Preventative med/s previously tried include: Depakote, Topiramate Preventative med/s not indicated include: Current abortive/symptomatic relief BROOKS/migraine medication: Nurtec ODT Abortive/Symptomatic relief med/s previously tried include: Sumatriptan, Rizatriptan Abortive/Symptomatic relief med/s not indicated include: Previous Studies: 04/03/24: Routine EEG - Normal 02/28/24: Brain MRI with and without contrast - Unremarkable for intracranial pathology 02/26/24: CTA Head and Neck - No apparent arterial high grade stenosis, occlusion or aneurysm within the head or neck. 02/26/24: CT Head without contrast - No acute intracranial abnormality Prior Hx: Initial Consultation 03/26/24 Late January,: Supposedly had a seizure one [...] checking in at a Neurology office in [facility]), he suddenly lost consciousness, so EMS arrived and took him to [facility] for [facility] evaluation. [facility] from 02/26/24-03/02/24. [facility] inpatient Neurology service was consulted. 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 It was normal. At last office visit (03/26/24) discontinued Lamotrigine 25 mg daily and started Topiramate with titration to 50 mg BID. Also, discontinued Rizatriptan and started Nurtec ODT 75 mg for abortive/symptomatic migraine relief. Ethan is not tolerating Topiramate; significant tingling into the extremities. He is still getting frequent headaches. Nurtec ODT helps with providing abortive/symptomatic relief. He complains of frequent episodes of loss of consciousness. He is unsure if he is fainting or having seizures. As we were finishing up our office visit today, he was sitting in the chair comfortably when he then put his right hand on his forehead and said he was feeling dizzy. He then suddenly slumped over in his chair (to the left). I approached him and while he was unresponsive to verbal stimulus, his radial pulse and breathing were found to be normal. After approximately 20 seconds, he abruptly snorted, opened his eyes, sat up, and said what happened ? I went on to ask him orientation questions, in which he was fully oriented to person, place and time. He was then able to get up out of the chair under his own power and ambulate out of the office without assistance. 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 He also demonstrates paroxysmal functional tremor involving the right hand. Plus, he believes he has multiple personality disorder. PLAN: Will refer him to Psychiatry for evaluation Will refer him to Epilepsy Specialist for further opinion Continue Propranolol LA 60 mg HS for migraine prevention Start Ajovy 225 mg sc every 28 days for migraine prevention [facility] mg for abortive/symptomatic migraine relief Advised to refrain from operating any sort of motorized vehicle and/or heavy machinery at this time. Advised to refrain from climbing various objects, such as ladders, scaffolding, trees, etc. Advised to have another adult present at all times if submerging oneself into water, such as in a bath, jacuzzi, pool, pond, etc. BROOKS log is recommended Identification and avoidance of personal BROOKS/migraine triggers discussed Trying to stay on a regular sleep and eating schedule, staying well hydrated, and working on stress management to help reduce BROOKS/migraine frequency discussed Follow up in the office in 3 months with myself, primarily regarding migraines Electronically Signed by: Armando Meek PA-C 06/12/24 1453 documented in this encounter [facility] 05-30-2024 Miscellaneous Notes Patient called and stated yesterday he was sitting with his mother outside when a insurance account manager pulled up and it had rapidly flashing yellow lights. He looked up at them and when he did he felt himself start to have a seizure. He was able to stop the seizure by looking away. He has never had a seizure due to flashing lights before. He also would like the results from his EEG. He can be reached at [phone] Addressed in [employer] message. [facility] [employer] 05-30-2024 Telephone encounter Note Patient called and stated yesterday he was sitting with his mother outside when a insurance account manager pulled up and it had rapidly flashing yellow lights. He looked up at them and when he did he felt himself start to have a seizure. He was able to stop the seizure by looking away. He has never had a seizure due to flashing lights before. He also would like the results from his EEG. He can be reached at [phone] [email or web address] 05-30-2024 Telephone encounter Note Addressed in [employer] message. [facility] [employer] 05-17-2024 History of Present illness Narrative Ethan Guadarrama Malyessi Date of visit: 05/17/2024 Date of : 1990 Age: 33 y.o. Patient Active Problem List Diagnosis New onset seizure (CMS-HCC) Pancytopenia (CMS-HCC) Kidney stones Multiple personality disorder (CMS-HCC) Ureteral stone Allergies Allergen Reactions Naproxen Nausea And Vomiting Other Reaction(s): Unknown Current Outpatient Medications Medication Sig Dispense Refill ueacsmg-ixxdedvmynpoi-uiadplpu (EXCEDRIN MIGRAINE) 250-250-65 mg per tablet Take 1 tablet by mouth every 6 (six) hours as needed for headaches. ferrous sulfate 325 (65 FE) mg tablet Take 1 tablet (325 mg total) by mouth. ondansetron (ZOFRAN) 4 mg tablet Take 1 tablet (4 mg total) by mouth 2 (two) times a day as needed. propranolol LA (INDERAL LA) 60 mg 24 hr capsule Take 1 capsule (60 mg total) by mouth in the morning. 30 capsule 2 rimegepant (NURTEC ODT) 75 mg tablet,disintegrating Dissolve 1 tablet on tongue as needed (migraine). Maximum of 1 dose per 24 hours 8 tablet 5 acetaminophen (TYLENOL EXTRA STRENGTH) 500 mg tablet Take 2 tablets (1,000 mg total) by mouth every 6 (six) hours as needed for pain. (Patient not taking: Reported on 05/17/2024) pantoprazole (PROTONIX) 20 mg EC tablet Take 2 tablets (40 mg total) by mouth. (Patient not taking: Reported on 05/17/2024) No current facility-administered medications for this visit. Chief Complaint Patient presents with Follow-up EST PT F/U 6 WKS ECHO, HM DONE L/S MBO History of Present Illness 33 year old male with a hx of arthritis, fibromyalgia, and multiple personality disorder , migraine without aura, recurrent syncope, pancytopenia, and functional tremor involving the right hand here in follow up . Referred by his neurologist Syncopal episode were not thought to be cardiac on initial evaluation more consistent with seizure/migraines with aura and 1 episode of vasovagal syncope. Workup included Holter monitor during which the patient actually did have a syncope and many symptoms all correlated with normal sinus rhythm Echocardiogram with normal biventricular size and systolic function and no significant valvular disease He does have family history of early coronary artery disease in his father with SD in his 50s, no family history of [...] on file Food Insecurity: No Food Insecurity (05/17/2024) Hunger Screening Food Insecurity - Worry: Never True Food Insecurity - Inability: Never True Transportation Needs: No Transportation Needs (02/27/2024) Received from [facility] - Transportation Lack of Transportation (Medical): No Lack of Transportation (Non-Medical): No Physical Activity: Not on file Stress: Not on file Social Connections: Not on file Interpersonal Safety: Not on file Housing Instability: Low Risk (02/27/2024) Received from [facility] [facility] Housing Stability Vital Sign Unable to Pay for Housing in the Last Year: No Number of Times Moved in the Last Year: 1 Homeless in the Last Year: No Review of Systems Review of Systems Constitutional: Negative. HENT: Negative. Eyes: Negative. Cardiovascular: Negative. Respiratory: Negative. Endocrine: Negative. Hematologic/Lymphatic: Negative. Skin: Negative. Musculoskeletal: Positive for back pain. Gastrointestinal: Negative. Genitourinary: Negative. Neurological: Positive for dizziness, headaches, light-headedness and loss of balance. Psychiatric/Behavioral: Negative. Allergic/Immunologic: Negative. Vascular: Negative. CARDIOVASCULAR: Please review HPI. Physical [...] mood, memory and judgement. VITAL SIGNS: BP 100/68 (BP Site: Left Arm, BP Postition: Sitting) Pulse 75 Ht 175.3 cm (5' 9.02 ) Wt 103.4 kg (228 lb) SpO2 97% BMI 33.65 kg/m Orders Placed or Reconciled This Encounter Medications xnakavk-nsajimgkasljc-kihntrug (EXCEDRIN MIGRAINE) 250-250-65 mg per tablet Sig: Take 1 tablet by mouth every 6 (six) hours as needed for headaches. There are no discontinued medications. IMPRESSIONS/PLAN There are no diagnoses linked to this encounter. Recurrent non cardiogenic syncope one episode of vasovagal syncope Multiple personality disorder Fibromyalgia Migraine with aura Family history of early coronary artery disease Former smoker and daily THC smoker He did have a syncopal episode while wearing the monitor which correlated with normal sinus rhythm his echocardiogram showed structurally normal heart he has a normal physical exam No further cardiac workup indicated at this time, refer back to his neurologist We did discuss conservative measures regarding his single episode of vasovagal syncope including proper hydration and counter pressure maneuvers THC smoking cessation counseling provided Follow-up as needed TODAYS ORDERS No orders of the defined types were placed in this encounter. FOLLOW UP Return if symptoms worsen or fail to improve. PCP: LATRICIA GARCIA MD Referring Physician: Latricia Garcia MD [address] [place] [address] documented in this encounter [employer] 05-16-2024 Miscellaneous Notes Called patient to remind them to bring their most current copy of their medication list with them to their appt. Patient verbalizes understanding. [facility]16[facility] Telephone encounter Note Called patient to remind them to bring their most current copy of their medication list with them to their appt. Patient verbalizes understanding. [facility] 04-19-2024 History of Present illness Narrative [facility] Neurology Office Note 04/18/2024 12:37 PM Patient info: Ethan Donald is a 33 y.o. male Account No.: [id number] Acct: : 1990 PCP: LATRICIA GARCIA MD Chief Complaint: Patient, 33 year old male, presents today for initial Neurological evaluation regarding seizure-like activity and headaches. Last seen in the office on 03/26/24 Ethan is present in the office today with his girlfriend. Interval Hx: Routine EEG was completed on 04/03/24. It was normal. At last office visit (03/26/24) discontinued Lamotrigine 25 mg daily and started Topiramate with titration to 50 mg BID. Also, discontinued Rizatriptan and started Nurtec ODT 75 mg for abortive/symptomatic migraine relief. Ethan is not tolerating Topiramate; significant tingling into the extremities. He is still getting frequent headaches. Nurtec ODT helps with providing abortive/symptomatic relief. He complains of frequent episodes of loss of consciousness. He is unsure if he is fainting or having seizures. As we were finishing up our office visit today, he was sitting in the chair comfortably when he then put his right hand on his forehead and said he was feeling dizzy. He then suddenly slumped over in his chair (to the left). I approached him and while he was unresponsive to verbal stimulus, his radial pulse and breathing were found to be normal. After approximately 20 seconds, he abruptly snorted, opened his eyes, sat up, and said what happened ? I went on to ask him orientation questions, in which he was fully oriented to person, place and time. He was then able to get up out of the chair under his own power and ambulate out of the office without assistance. Current preventative BROOKS/migraine medication: Topiramate Preventative med/s previously tried include: Depakote Preventative med/s not indicated include: Current abortive/symptomatic relief BROOKS/migraine medication: Nurtec ODT Abortive/Symptomatic relief med/s previously tried include: Sumatriptan, Rizatriptan Abortive/Symptomatic relief med/s not indicated include: Previous Studies: 02/28/24: Brain MRI with and without contrast - Unremarkable for intracranial pathology 02/26/24: CTA Head and Neck - No apparent arterial high grade stenosis, occlusion or aneurysm within the head or neck. 02/26/24: CT Head without contrast - No acute intracranial abnormality Prior Hx: Initial Consultation 03/26/24 Late January,: Supposedly had a seizure one [...] checking in at a Neurology office in [facility]), he suddenly lost consciousness, so EMS arrived and took him to [facility] for [facility]. [facility] from 02/26/24-03/02/24. [facility] inpatient Neurology service was consulted. 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: (-) hx of stroke/cerebrovascular malformation: (-) hx of intracranial tumor/mass/cyst: (-) hx of cognitive delays/impairment: (-) hx of abuse (physical/emotional/etc.): Recent/Pertinent Labs: See EMR Past Medical Hx: See EMR Social Hx: [...] Negative Hem/Onc: Negative Allergy/Immunology: Negative Vitals: BP: 135/83 HR: 88 Weight: 98.4 kg Physical Exam: General: well groomed, appears [...] throughout the extremities is normal Romberg is (); not tested Gait is steady with normal base, normal stride and bilateral arm swing ASSESSMENT: Ethan is a 33 year old male with a hx of arthritis, fibromyalgia, and 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 PLAN: Will order a 72 hr. Ambulatory EEG Wean off Topiramate; 50 mg HS for 5 days then discontinue Start Propranolol LA 60 mg every evening for BROOKS/migraine prevention Continue Nurtec ODT 75 mg for abortive/symptomatic migraine relief Further evaluation with Cardiology, including Holter Monitor, pending Follow up in the office in 2-3 months Electronically Signed by: Armando Meek PA-C 06/11/242053 documented in this encounter [facility] 04-19-2024 Instructions Armando Meek PA-C - 04/19/2024 9:00 AM EST Topiramate 50 mg: take 1 tablet nightly for 5 days, then Discontinue documented in this encounter [facility] 04-12-2024 History of Present illness Narrative Images from the original note were not included. [facility] 04/12/24 Ethan Donald is a 33 y.o. year old male seen today in the oncology clinic. No chief complaint on file. History of Present Illness: Mr. Donald is a 33 y.o. male who was intially admitted to [facility] on 02/27/2024 for multiple personality disorder, fibromyalgia, [...] marrow biopsy during recent hospital stay at [facility]. He is referred to Hematology for further evaluation. He denies fever, chills, shortness of breath, difficulty breathing chest pain abdominal pain nausea or vomiting. His weight fluctuates up and down around 6 lb. Past Medical History: Diagnosis Date Arthritis 04/05/2024 Seizures ([facility]) Past Surgical History: Procedure Laterality Date KIDNEY [...] Needs: No Transportation Needs (02/27/2024) Received from [facility] - Transportation Lack of Transportation (Medical): No Lack of Transportation (Non-Medical): No Housing Instability: Low Risk (02/27/2024) Received from [facility] Housing Stability Vital Sign Unable to [...] from the original result were not included. [place] [facility] EEG REPORT EEG Service Date: 04/03/24 Date of Report: 04/03/24 History: Ethan Donald is a 33 y.o. male who is undergoing EEG to evaluate for seizure-like events. Centrally active medications: Hydrocodone, prednisone, Nurtec, Topamax. Procedure: This EEG was acquired with electrodes placed according to the [id number] electrode placement system. The EEG was acquired [...] of intermittent seizures. Tara Bell M.D., Ph.D. [facility] Background Recent Labs: Recent Results [...] AV Velocity Ratio 0.70 Left Ventricle Mass 152.773107116979896 g Interventricular Septum Diastolic Thickness by 2D [...] this note were generated using voice recognition Discourse dictation software. Although every effort was made to ensure the accuracy of this automated chief of field operations, some errors in chief of field operations may have occurred. 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 - Transportation Lack of Transportation (Medical): No Lack of Transportation (Non-Medical): No Physical Activity: Not on file Stress: Not on file Social Connections: Not on file Interpersonal Safety: Not on file Housing Instability: Low Risk (02/27/2024) Received from [facility] Housing Stability Vital Sign Unable to [...] discontinued medications. IMPRESSIONS/PLAN 1. Recurrent syncope - [facility] - [place], [place] - Echo complete W/O contrast; Future - Holter monitor 24-48 hour; Future 2. Seizure ([facility]) Episodes described sound like two seizures and [...] GARCIA MD Referring Physician: Armando Meek PA-C [address] [place] [address] documented in this encounter [facility] 04-05-2024 Miscellaneous Notes Called patient to remind them to bring their most current copy of their medication list with them to their appt. Patient verbalizes understanding. documented in this encounter [facility] 04-05-2024 Telephone encounter Note Called patient to remind them to bring their most current copy of their medication list with them to their appt. Patient verbalizes understanding. [facility] 04-01-2024 Miscellaneous Notes Images from the original note were not included. Patient called to state the referral to the Praveen Torres MD in [place]. Patient states he has called several times and left message with a call back. When looking up the doctors information she appears to be at [facility]. Patient is looking for a doctor in [place]. Please advise Ethan Contact Information [phone] ( Provider located at both [facility] and [facility] in [place]. Patient has been notified of below message and voiced understanding. Patient left a message for the [place] location and has not yet heard a response. [employer] Utility Worker informed patient if there is still no response by end of week to give the clinic a call back. documented in this encounter [facility] 04-01-2024 Telephone encounter Note Images from the original note were not included. Patient called to state the referral to the Hematlynsey Torres MD in [place]. Patient states he has called several times and left message with a call back. When looking up the doctors information she appears to be at [facility]. Patient is looking for a doctor in [place]. Please advise Ethan Contact Information [phone] ( [facility] 04-01-2024 Telephone encounter Note Provider located at both [facility] and [facility] in [place]. [facility] Telephone encounter Note Patient has been notified of below message and voiced understanding. Patient left a message for the [place] location and has not yet heard a response. [employer] Utility Worker informed patient if there is still no response by end of week to give the clinic a call back. [employer] 03-27-2024 Miscellaneous Notes Patient stated that Armando [...] day supply preferred: unknown Pharmacy Name: [facility] If already on preferred pharmacy list - name only If new pharmacy - specify address & phone number Request was made by: PA is needed for Nurtec. Medication listed is incorrect. RN has submitted a PA on [facility]. [place]: BYLVWUNU Patient called stating that he has been experiencing a migraine for about a month since his seizure. Patient is requesting another medication other than Nurtec due to pharmacy not prescribing medication due to a PA. Patient states that if he does not get a medication prescribed by this afternoon that he will be going to [facility] for a migraine cocktail. Please Advise. Pharmacy: [id number] - [place], [place] - Best Contact: Patient was informed [...] in the meantime while the [facility] is being completed. - [facility] Nurtec [...] over the weekend and was taken to [facility]. He was provided with a medication that aborted his migraine. Patient is unsure the name of if but will look at his records and notify clinic. Patient stated he has a slight headache still but it is much better than previously. He would still like to start Prednisone but will need script sent to [facility] in [place] instead. Appeal [facility] as stated; thank you. Continue with Topiramate. Will resend Prednisone to desired Pharmacy location. - [facility] documented in this encounter [facility] 03-27-2024 Telephone encounter Note Patient stated that Armando Meek submitted a prior authorization on 03/26/2024 for the [facility]. However, [facility] stated that it did not go through [...] day supply preferred: unknown Pharmacy Name: [facility] If already on preferred pharmacy list - name only If new pharmacy - specify address & phone number Request was made by: [facility] [employer] 03-27-2024 Telephone encounter Note PA is needed for Nurtec. Medication listed is incorrect. RN has submitted a PA on [facility]. [place]: [facility] [employer] 03-27-2024 Telephone encounter Note Patient called stating that he has been experiencing a migraine for about a month since his seizure. Patient is requesting another medication other than Nurtec due to pharmacy not prescribing medication due to a PA. Patient states that if he does not get a medication prescribed by this afternoon that he will be going to [facility] for a migraine cocktail. Please Advise. Pharmacy: [facility] [address] [place], [place] - Best Contact: [facility] [employer] 03-27-2024 Telephone encounter Note Patient was informed a PA was submitted, however, the clinic is awaiting response from insurance. The patient is wanting to know if there is any other medication he can take in the meantime until a response is received for the Nurtec. [facility] [employer] 03-27-2024 Telephone encounter Note Continue with the prescribed Topiramate and I will send in a course of Prednisone in the meantime while the PA for Nurtec ODT is being completed. - [facility] [employer] 03-27-2024 Telephone encounter Note Nurtec was denied. [...] over the weekend and was taken to [facility]. He was provided with a medication that aborted his migraine. Patient is unsure the name of if but will look at his records and notify clinic. Patient stated he has a slight headache still but it is much better than previously. He would still like to start Prednisone but will need script sent to [facility] in [place] instead. [facility] [employer] 03-27-2024 Telephone encounter Note Appeal N[facility]te as stated; thank you. Continue with Topiramate. Will resend Prednisone to desired Pharmacy location. - [facility] [employer] 03-26-2024 History of Present illness Narrative [facility] Neurology Office Note 03/25/2024 3:01 PM Patient info: Ethan Donald is a 33 y.o. male Account No.: [id number] Acct: : 1990 PCP: LATRICIA GARCIA MD [...] checking in at a Neurology office in [facility]), he suddenly lost consciousness, so EMS arrived and took him to [facility] for further evaluation. [facility] from 02/26/24-03/02/24. [facility] inpatient Neurology service was consulted. 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 PATIENT - documented in this [facility]24 Telephone encounter Note Please ask the [...] WHO CALLED TO SCHEDULE APPOINTMENT? [facility] History of Present illness Narrative Discharge [...] per family. Pt supplied with walker from [facility]. TRANSFER - OUT REPORT: Verbal report given [...] fibromyalgia, tobacco use disorder who presented to [facility] on 02/27/2024 for evaluation of loss [...] Mendoza. 0904 Samples collected and given to spanner operator for further review. 0906 Procedure completed; patient tolerated well. Post scan obtained. 09 Bacitracin oint, band aid to site; no bleeding noted. 09 Patient on bed; comfort ensured. 09 patient taken to via bed/transporter with family [...] Multiple personality disorder, Fibromyalgia who presented to [facility] on 02/26 with chief complaint of loss of consciousness. Directly admitted from [facility]. Reported on 02/22 having seizure while [...] Service - 02/29/2024 Neurology Progress Note Date:02/29/2024 Room:[address] [place] [address] Patient Name:Ethan Donald Date of :1990 Age:33 y.o. CC: No chief complaint on file. Subjective Ethan Donald is a 33 y.o. male with a history of Multiple Personality Disorder, Fibromyalgia and Marijuana and Tobacco dependence who presented to [facility] after passing out at his psychiatrist office; transferred to [facility] on 02/26/2024 for neurology evaluation. Patient [...] of Arthritis, Fibromyalgia, Multiple personalities (HCC), and Edroy-Schlatter's disease. Social History: reports that he has [...] time. Motor: Motor strength is normal. Coordination: Lypigs-Pxeg-Yjqzza Test and Heel to Solano Test normal. [...] 90.5 PLT 107* 89* CHEMISTRIES: Recent Labs 02/27/24 0445 02/28/2452102/29/24 0410 NA -- 140 139 K -- 4.1 3.7 CL -- 101 102 CO2 -- 25 24 BUN -- 15 13 CREATININE -- 1.2 1.1 GLUCOSE -- 94 96 PHOS 4.0 -- -- MG -- 2.3 -- PT/INR: Recent Labs 02/28/24521 INR 1.13 APTT: Recent Labs 10/30/24 0522 APTT 24.6 LIVER PROFILE: Recent Labs 02/28/24 0522 02/29/24 0410 AST 45* 61* ALT 39 49 BILIDIR [...] Patient: Ethan Donald 33 y.o. male Unit/Bed: [facility] Admit Date: 02/27/2024 ASSESSMENT AND PLAN Active [...] Multiple personality disorder, Fibromyalgia who presented to [facility] on 02/26 with chief complaint of loss of consciousness. [facility]. Reported on 02/22 having seizure while at [...] Service - 02/28/2024 Neurology Progress Note Date:02/28/2024 Room:[facility]A Patient Name:Ethan Donald Date of :1990 Age:33 y.o. CC: No chief complaint on file. Subjective Ethan Donald is a 33 y.o. male with a history of Multiple Personality Disorder, Fibromyalgia and Marijuana and Tobacco dependence who presented to [facility] after passing out at his psychiatrist office; transferred to [facility] on 02/26/2024 for neurology evaluation. Patient [...] of Arthritis, Fibromyalgia, Multiple personalities (HCC), and Edroy-Schlatter's disease. Social History: reports that he has [...] time. Motor: Motor strength is normal. Coordination: Ayelyg-Kyjk-Wehckt Test and Heel to Solano Test normal. [...] CHEMISTRIES: Recent Labs 02/26/24 1028 02/27/24 0445 02/28/24521 NA 135* -- 140 K 3.3* -- [...] plan. Spiritual Health History and Assessment/Progress Note [facility] (P) Advance Care Planning, , , Name: Ethan Donald Age: 33 y.o. Sex: male Language: Lithuanian Religious: None New onset seizure (HCC) Date: 02/28/2024 [...] of Hope, please send discharge medication to [facility] OP Pharmacy. Thank you! [facility] - Prescription Assistance ([phone]) 02/27/2024,3:31 PM Assessment: Ethan is a 33 year old male resting in his bed alone, ca.lm. tired and awake. This visit is in response to a Spiritual Consult to discuss ACP document.Please see ACP note for detail [facility] Neurodiagnostic Capital Project Engineer Worksheet EEG Date: 02/27/2024 Name: Ethan Donald : 1990 Age: 33 y.o. Sex: male CSN: [id number] Room/Location: [facility] Ordering Provider: Brian Gunter EEG Number: [id number] [...] Deprived: Yes Seizures Observed: No Mentality: alert Emotional Disabilities Teacher: Bahman Robledo 02/27/2024 [facility] SCAR, Dr Del Angel. 33 yo new onset seizure, headache and syncopal episode. Wed. he had a seizure in his sleep, bit his tongue. Followed up with PCP and [facility]. At PCP appt today had a pain in head, passed out, came to ED. CT head without contrast nothing acute. No CT with contrast done because wasn't sure if he had contrast at [facility]. No ability to do MRI after 4PM. Questioning temporal arteritis , 60 mg solumedrol given, also given zofran . WBC 4.1, sed rate 17, CRP 81.9. Vials afebrile, 138/84, 92, 18, 97% on room air. documented in this encounter [facility] 03-02-2024 Hospital Discharge instructions Maureen Hampton, - 03/02/2024 11:54 AM EDT Follow up with your family doctor in the next week. Continue to wear mask for a precaution when around family and friends. Follow up with Neurology, continue seizure precautions. Do not drive motor vehicles until you follow up and see neurology. 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 Post Treatment Pain: 10 Plan Plan Frequency: 2 Plan weeks: 6 [...] pain and improve R knee mobility. -met Intermediate Goals Time Frame for Intermediate Goals : 6 weeks Chip Unloader Goal 1: Patient to be independent and compliant with HEP. -met Intermediate Goal 2: Patient to have improved R knee AROM 0-120* with no increase in pain for improved mobility. -met (05/31/23 R knee AROM 0-130*) Chip Unloader Goal 3: Patient to have improved R LE strength >/=4/5 grossly all major joints and planes for improved knee stability with gait. Chip Unloader Goal 4: Pt to report ability to walk community distances with no AD and no gait deviations or increase in pain to return to PLOF. 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 Exercises: Exercise 2: Scifit x10 min Lvl [...] pain and improve R knee mobility. -met Chip Unloader Goals Time Frame for Intermediate Goals : 6 weeks Chip Unloader Goal 1: Patient to be independent and compliant with HEP. -met Chip Unloader Goal 2: Patient to have improved R knee AROM 0-120* with no increase in pain for improved mobility. -met (05/31/23 R knee AROM 0-130*) Intermediate Goal 3: Patient to have improved R LE strength >/=4/5 grossly all major joints and planes for improved knee stability with gait. Intermediate Goal 4: Pt to report ability to walk community distances with no AD and no gait deviations or increase in pain to return to PLOF. -progressing Minutes Tracking: Time In: 1515 Time Out: 1558 Minutes: 43 Timed Code Treatment Minutes: 41 Minutes Manjit Thorpe Date: 06/12/2023 documented in this encounter [facility] 07-21-2022 Hospital Discharge instructions Patient Education [...] potassium each day. These include: ?Avocado. ?Banana. ?[place], prune, carrot, or tomato juice. ?Baked potato. [...] Lasagna. Frozen meals. Potato chips. Citizen Of [place] fries. Summary You can reduce your risk [...] 08/12/2011 Document Revised: 08/07/2019 Document Reviewed: 03/28/2017 [employer] Patient Education 2020 [employer]. Follow Up Care 07/20/2022 16:11:07 With:Handy WILEY, DANA Llamas, [facility] Address: When: Unknown [facility] 07-13-2022 Hospital Discharge instructions Patient Education 07/13/2022 [...] potassium each day. These include: ?Avocado. ?Banana. ?[place], prune, carrot, or tomato juice. ?Baked potato. [...] Lasagna. Frozen meals. Potato chips. Citizen Of [place] fries. Summary You can reduce your risk [...] 08/12/2011 Document Revised: 08/07/2019 Document Reviewed: 03/28/2017 [employer] Patient Education 2020 [employer]. Follow Up Care 05/23/2022 10:22:28 With:Handy WILEY, Shirley Menchaca, [facility], [facility] Address: When: Unknown [facility] Evaluation + Plan note Future Appointments Appointment Date:07/13/2022 09:00:00 AM Scheduled Provider:Shirley Murrell MD Location:[facility] Appointment Type:URO Office Visit [facility] Evaluation note Diagnosis New onset seizure (HCC)- Primary Other convulsions Pancytopenia (HCC) Other pancytopenia Hip pain, unspecified laterality Pancytopenia (HCC) Other pancytopenia [facility] Diagnosis Recurrent syncope- Primary documented in this [facility]* Diagnosis Migraine without aura and without status migrainosus, not intractable- Primary Seizure-like activity (CMS-HCC) Functional tremor Seizure-like activity (CMS-HCC) documented in this encounter [facility]* Diagnosis Psychogenic nonepileptic seizure- Primary Seizure-like activity (CMS-HCC) 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 Migraine without aura and without status migrainosus, not intractable Functional tremor documented in this encounter [facility]* Diagnosis Seizure (CMS-HCC)- Primary Other convulsions Migraine without aura and without status migrainosus, not intractable Status migrainosus Variants of migraine, not elsewhere classified, without mention of intractable migraine without mention of status migrainosus Recurrent syncope Pancytopenia ([facility]-HCC) Functional tremor [facility] Diagnosis Status migrainosus- Primary Variants of migraine, not elsewhere classified, without mention of intractable migraine without mention of status migrainosus [facility] Diagnosis Recurrent syncope- Primary Seizure (CMS-HCC) Other convulsions [facility] Diagnosis Pancytopenia (CMS-HCC) [facility] Diagnosis Migraine without aura and without status migrainosus, not intractable [facility] Narrative No data available for this section [facility] No data available for this section [facility] filedocumented in this encounter [facility] [...] note No data available for this section [facility] N[facility]ative* Consultation (Routine) - Pending Review Specialty Diagnoses / Procedures Referred By Genoveva bowers Referred To Contact Hematology Diagnoses Pancytopenia ([facility]-HCC) Armando Meek PA-C [address] [facility] [place] [address] Phone: tel: fax: Ciera Torres MD [address] [place] [address] Phone: tel: fax: Referral ID Status Reason Start Date Expiration Date Visits Requested Visits Authorized [id number] Pending Review Specialty Services Required 4 03/26/2025 1 1 [facility] Summary Purpose Family History No Family History Records FoundNo Family History Records FoundNo Family History Records FoundNo Family History Records FoundNo Family History Records FoundNo Family History Records FoundNo Family History Records Found Advance Directives No Advanced Directives Records FoundDocuments on File Type Date Recorded Patient Statistics Intern Expl anation ACP-Advance Directive 02/29/2024 2:09 PM Date Activated Date Inactivated Comments 02/27/2024 12:32 AM Healthcare Agents on File Name Relationship Healthcare Agent Relationshi p Communication Daisy Araujo Girlfriend Primary Decision Maker Hiren Donald Parent Secondary Decision Maker Additional Source Comments Patient Care team informatio n (unrecognized section and content) Brass Instrument Repair Technician Relationship Specialty [place] [address] [place] [address] PCP - General Family Medicine 02/16/23 Brass Instrument Repair Technician Relationship Specialty Start Date End Date Latricia Garcia MD [address] [place] [address] PCP - General Family Medicine 02/16/23 Brass Instrument Repair Technician Relationship Specialty Start Date End Date Latricia Garcia MD [address] [place] [address] PCP - General Family Medicine 02/16/23 Brass Instrument Repair Technician Relationship Specialty Start Date End Date Latricia Garcia MD PCP - General 09/15/17 Brass Instrument Repair Technician Relationship Specialty Start Date End Date Latricia Garcia MD PCP - General 09/15/17 Brass Instrument Repair Technician Relationship Specialty Start Date End Date Latricia Garcia MD PCP - General 09/15/17 Brass Instrument Repair Technician Relationship Specialty Start Date End Date Latricia Garcia MD PCP - General 09/15/17 Brass Instrument Repair Technician Relationship Specialty Start Date End Date Latricia Garcia MD PCP - General 09/15/17 Brass Instrument Repair Technician Relationship Specialty Start Date End Date Latricia Garcia MD PCP - General 09/15/17 Brass Instrument Repair Technician Relationship Specialty Start Date End Date Latricia Garcia MD PCP - General 09/15/17 Brass Instrument Repair Technician Relationship Specialty Start Date End Date Latricia Garcia MD PCP - General 09/15/17 Brass Instrument Repair Technician Relationship Specialty Start Date End Date Latricia Garcia MD PCP - General 09/15/17 Brass Instrument Repair Technician Relationship Specialty Start Date End Date Latricia Garcia MD PCP - General 09/15/17 Brass Instrument Repair Technician Relationship Specialty Start Date End Date Latricia Garcia MD PCP - General 09/15/17 Brass Instrument Repair Technician Relationship Specialty Start Date End Date Latricia Garcia MD PCP - General 09/15/17 (unrecognized sect ion and content) No Status Records FoundNo Status Records FoundNo Status Records FoundNo Status Records FoundNo Status Records FoundNo Status Records FoundNo Status Records Found INFORMATION SOURCE (unrecogn ized section and content) DATE CREATED AUTHOR 09/13/2022 [facility] DATE CREATED AUTHOR AUTHOR'S ORGANIZ ATION 02/28/2024 [facility] DATE CREATED AUTHOR AUTHOR'S ORGANIZ ATION 03/23/2024 [facility] DATE CREATED AUTHOR AUTHOR'S ORGANIZ ATION 05/17/2024 [facility] DATE CREATED AUTHOR AUTHOR'S ORGANIZ ATION 05/20/2024 [facility] DATE CREATED AUTHOR AUTHOR'S ORGANIZ ATION 06/14/2024 [facility] DATE CREATED AUTHOR AUTHOR'S ORGANIZ ATION 09/05/2024 [facility] Reason for Visit (unrecogniz ed section and content) Specialty Diagnoses / Procedures Referred By Genoveva bowers Referred To Contact Diagnoses New onset seizure (HCC) new onset seizure [address] [address] [facility] [address] [place] [address] Referral ID Status Reason Start Date Expiration Date Visits Re quested Visits Authorized [id number] 1 1 Reason Comments Follow-up EST PT F/U 6 WKS ECH O, HM DONE L/S MBO Reason Onset Date Comments Seizures 05/30/2024 Reason Comments Follow-up Patient is here toda y for follow up. Reason Comments Follow-up Patient is here toda y for follow up on recent passing out episodes. Patient states they do not feel well right now and passed out this morning. Reason Onset Date Comments New Patient 06/13/2024 Reason Onset Date Comments REFERRAL 03/25/2024 Reason Comments Seizures Patient is here toda y as a new patient for dx of Seizures. Patient states that he had a seizure about a month ago and has been having episodes of passing out ever since. Specialty Diagnoses / Procedures Referred By Contac t Referred To Contact Neurology Diagnoses Seizure ([facility]) Latricia Garcia MD [address] [facility] [facility] [place] [address] Phone: tel:[phone] fax: [facility] [address] [place] [address] Phone: tel: fax: Referral ID Status Reason Start Date Expiration Date Visits Requested Visits Authorized [id number] Pending Review Specialty Services Required 4 03/20/2025 1 1 Reason Onset Date Comments prior authorization 03/27/2024 Reason Onset Date Comments information wrong on referral 04/01/2024 Reason Comments 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 MILAN RICHARD, WAS IN ER , ALSO IP [facility]Z SCHED W/ PT Specialty Diagnoses / Procedures Referred By Contac t Referred To Contact Cardiology Diagnoses Recurrent syncope Armando Meek, ADRIANNA [address] [facility] [place] [address] Phone: tel: fax: [facility] [address] [facility] [address] [place] [address] Phone: tel: fax: Referral ID Status Reason Start Date Expiration Date Visits Requested Visits Authorized [id number] Pending Review Specialty Services Required 4 03/26/2025 1 1 Reason Onset Date Comments Med Refill 07/15/2024 Ordered Prescriptions (unrec ognized section and content) [...] disposal. 0852 (Patch Removed - Provider: Joanna Zalar, RN)0853 (Patch Applied - Provider: Joanna Adame RN) 075 (Patch Removed - Provider: Joanna Adame RN)075 [...] (See Alternative - Provider: Sol Landis RN) 929 (See Alternative - Provider: Joanna Adame RN)161 (See Alternative - Provider: Joanna Adame RN)221 (See Alternative - Provider: Rebecca Humphreys RN) [...] Joanna Adame RN)2007 (Given - Provider: Sol Landis, RN) 0930 (Given - Provider: Joanna Adame [...] Diana Reddy RN)0900 (Given - Provider: Diana Reddy, MARQUISE) ketorolac [...] Sol Landis, MARQUISE)0630 (Given - Provider: Nikki Morris RN)1301 (Given - Provider: Joanna Adame RN)2005 (Given - Provider: Rebecca Humphreys RN) 021 (Canceled Entry - Provider: Rebecca Humphreys RN)0256 [...] CrCl less than 30ml/min, On hold since [facility] 02/29/2024 at 1438 until manually unheld 1438 (Held by provider - Provider: Chapis Rizvi MD - Reason: Other) midazolam (VERSED) injection (COMPLETED) PRN, Starting on Mon03/01/24 at 0857, Until Mon03/01/24 at 0900, Intra-op 0857 (Given - Provider: Diana Reddy, MARQUISE)0900 (Given - Provider: Diana Reddy, MARQUISE) ondansetron [...] RN)1116 (See Alternative - Provider: Daphne Alonzo, MARQUISE) ondansetron (ZOFRAN-ODT) disintegrating tablet 4 mg(Linked Group [...] Pain 1116 (Given - Provider: Daphne Alonzo, MARQUISE) polyethylene glycol (GLYCOLAX) packet 17 g 17 [...] mEq, Oral, PRN, Starting on Mon02/27/24 at 31, Until Discontinued, Potassium Replacement, May give alternative [...] mL, IntraVENous, PRN, Starting on Mon02/27/24 at 31, Until Discontinued, Line Care, After every IV line use Linked Groups Order Group 1: acetaminophen (TYLENOL) tablet 650 mgJump to med 650 mg, Oral, EVERY 6 HOURS PRN, Starting on Mon02/27/24 at 31, Until Discontinued, Pain Mild (1-3), Fever, For temp greater than 100.4 F (38 C), Maximum dose of acetaminophen is 4000 mg from all sources in 24 hours. Or acetaminophen (TYLENOL) suppository 650 mgJump to med 650 mg, Rectal, EVERY 6 HOURS PRN, Starting on Mon02/27/24 at 31, Until Discontinued, Pain Mild (1-3), Fever, For temp greater than 100.4 F (38 C), Administer if oral route cannot be used. Group 2: ondansetron (ZOFRAN-ODT) disintegrating tablet 4 mgJump to med 4 mg, Oral, EVERY 8 HOURS PRN, Starting on Mon02/27/24 at 31, Until Discontinued, Nausea, Vomiting Or ondansetron (ZOFRAN) injection 4 mgJump to med 4 mg, IntraVENous, EVERY 6 HOURS PRN, Starting on Mon02/27/24 at 31, Until Discontinued, Nausea, Vomiting, Administer if oral [...] BE BASED ON THE PRIMARY CLINICAL RECORDS. [facility]. provides no warranty or guarantee of the accuracy or completeness of information in this document."
== END 2024-09-17 10:25 | disposition home or self-care (01) ==
LOC: CARD 10:25
PROVIDERS: PCP Family Medicine; Visit Provider Family Medicine
DX: R42 Dizziness and giddiness (principal)
CPT/HCPCS: 93306

== ENCOUNTER 2024-10-15 13:13 | Outpatient (OUT) | payer OTHER, SELFPAY ==
[2024-10-15 13:58] LABS: Basophils Absolute Auto 0.1 10^3/uL (0.0-0.1); Basophils Percent Auto 1.1 % (0.2-2.0); Eosinophils Absolute Auto 0.2 10^3/uL (0.0-0.7); Eosinophils Percent Auto 2.2 % (0.9-7.0); Hematocrit 45.3 % (42.0-54.0); Hemoglobin 15.8 g/dL (14.0-18.0); Immature Granulocytes Abs Auto 0.02 10^3/uL (0.00-0.03); Immature Granulocytes Pct Auto 0.3 % (0.0-0.5); Lymphocytes Absolute Auto 1.6 10^3/uL (1.2-3.8); Lymphocytes Percent Auto 22.4 % (20.5-60.0); Mean Corpuscular HGB Conc 34.9 g/dL (29.9-35.2); Mean Corpuscular Hemoglobin 31.1 pg (25.9-34.0); Mean Corpuscular Volume 89.2 fL (80.0-94.0); Mean Platelet Volume 10.3 fL (9.5-13.5); Monocytes Absolute Auto 0.5 10^3/uL (0.3-0.8); Monocytes Percent Auto 6.4 % (1.7-12.0); Neutrophils Absolute Auto 4.9 10^3/uL (1.4-6.5); Neutrophils Percent Auto 67.6 % (43.0-75.0); Platelet Count 253 10^3/uL (150-450); Red Blood Count 5.08 10^6/uL (4.70-6.10); Red Cell Distribution Width 11.9 % (11.0-15.0); White Blood Count 7.2 10^3/uL (4.0-11.0)
[2024-10-15 14:35] LABS: Alanine Aminotransferase 23 U/L (16-63); Albumin Globulin Ratio 1.2; Albumin Level 3.8 g/dL (3.4-5.0); Alkaline Phosphatase 85 U/L (46-116); Aspartate Amino Transferase 16 U/L (15-37); BUN Creatinine Ratio 6.6; Bilirubin Total 0.7 mg/dL (0.2-1.0); Calcium 9.5 mg/dL (8.5-10.1); Carbon Dioxide 29.2 mmol/L (21.0-32.0); Chloride 101 mmol/L (98-107); Chol HDL Ratio 4.5; Cholesterol 191 mg/dL (<=200); Estimated GFR (African America >60 (>=60 mL/min/1.73m^2); Estimated GFR (Non-African Ame >60 (>=60 mL/min/1.73m^2); Free T3 2.78 pg/mL (2.18-3.98); Globulin 3.3 g/dL; Glucose 84 mg/dL (74-106); HDL Cholesterol 42 mg/dL (40-60); LDL Cholesterol Calculated 128.8 mg/dL; Magnesium 2.1 mg/dL (1.8-2.4); Potassium 3.2 mmol/L (3.5-5.1); Sodium 138 mmol/L (136-145); Thyroid Stimulating Hormone 1.099 uIU/mL (0.358-3.740); Total Protein 7.1 g/dL (6.4-8.2); Triglycerides 101 mg/dL (<=150); VLDL CHOLESTEROL 20.2 mg/dL
[2024-10-15 14:36] LABS: Prostate Specific Antigen Scrn 0.88 ng/mL (<=4.00)
[2024-10-15 14:44] LABS: Estimated Average Glucose 103 mg/dL; Glycohemoglobin A1C 5.2 % (4.5-6.2)
[2024-10-16 07:07] LABS: Insulin 7.5 uIU/mL (2.6-24.9)
== END 2024-10-15 13:14 | disposition home or self-care (01) ==
LOC: LAB 13:15
PROVIDERS: PCP Family Medicine; Visit Provider Family Medicine
DX: Z00.00 Encounter for general adult medical examination without abnormal findings (principal); R73.09 Other abnormal glucose; R53.83 Other fatigue; Z12.5 Encounter for screening for malignant neoplasm of prostate; Z12.12 Encounter for screening for malignant neoplasm of rectum; R55 Syncope and collapse
CPT/HCPCS: 36415; 80053; 80061; 83036; 83525; 83735; 84436; 84443; 84481; G0103

== ENCOUNTER 2024-10-23 12:18 | Outpatient (OUT) | payer OTHER, SELFPAY ==
[2024-10-23 12:57] LABS: Anion Gap 11.2; BUN Creatinine Ratio 11.9; Calcium 9.1 mg/dL (8.5-10.1); Carbon Dioxide 29.3 mmol/L (21.0-32.0); Chloride 102 mmol/L (98-107); Estimated GFR (African America >60 (>=60 mL/min/1.73m^2); Estimated GFR (Non-African Ame >60 (>=60 mL/min/1.73m^2); Glucose 100 mg/dL (74-106); Magnesium 2.1 mg/dL (1.8-2.4); Potassium 3.5 mmol/L (3.5-5.1); Sodium 139 mmol/L (136-145)
== END 2024-10-23 12:19 | disposition home or self-care (01) ==
PROVIDERS: PCP Family Medicine; Visit Provider Family Medicine
DX: R55 Syncope and collapse (principal)
CPT/HCPCS: 36415; 80048; 83735

== ENCOUNTER 2024-10-30 09:40 | Outpatient (OUT) | payer OTHER, SELFPAY ==
--- OUTSIDE RECORDS SUMMARY | 2024-10-30 09:44 | XMS_ITS | Clinical Summary ---
Author Organization [employer] tem Address [facility]-[id number] [address] [place] [address] Care Team Providers Care Pug Mill Operator Helper Name Role Phone Jc Guzman MD Primary Care Provider [phone] Allergies Active Allergy Reactions Criticality Noted Date Comments Naproxen Nausea And Vomiting Low 03/03/2023 Other Reaction(s): Unknown Medications ferrous sulfate 325 (65 FE) mg tablet Take 1 tablet (325 mg total) by mouth. 4 Active rimegepant (NURTEC ODT) 75 mg tablet,disintegr atingIndications :Migraine without aura and without status migrainosus, not intractable Dissolve 1 tablet on tongue as needed (migraine). Maximum of 1 dose per 24 hours 8 tablet 5 4 Active acetaminophen (TYLENOL EXTRA STRENGTH) 500 mg tablet Take 2 tablets (1,000 mg total) by mouth every 6 (six) hours as needed for pain. Active pantoprazole (PROTONIX) 20 mg EC tablet Take 2 tablets (40 mg total) by mouth. Active aspirin-acetamin ophen-caffeine (EXCEDRIN MIGRAINE) 250-250-65 mg per tablet Take 1 tablet by mouth every 6 (six) hours as needed for headaches. Active fremanezumab-vfr m (AJOVY AUTOINJECTOR) 225 mg/1.5 mLIndications:Mi graine without aura and without status migrainosus, not intractable Inject 1.5 mL (225 mg total) under the skin every 28 days. 1.5 mL 5 5 Active ondansetron (ZOFRAN) 4 mg tabletIndication s:Migraine without aura and without status migrainosus, not intractable Take 1 tablet (4 mg total) by mouth every 8 (eight) hours as needed for nausea or vomiting. 30 tablet 1 5 Active propranolol LA (INDERAL LA) 60 mg 24 hr capsuleIndicatio ns:Migraine without aura and without status migrainosus, not intractable Take 1 capsule (60 mg total) by mouth in the morning. 30 capsule 2 5 Active Active Problems Problem Noted Date Diagnosed Date Kidney stones 04/05/2024 Multiple personality disorder 04/05/2024 Ureteral stone 04/05/2024 Pancytopenia 02/28/2024 New onset seizure 02/26/2024 Resolved Problems Problem Noted Date Diagnosed Date Resolved Date Arthritis 04/05/2024 04/05/2024 Encounters Date Type Department Care Team Description 09/17/2024 Telephone [facility] Department of [facility] [address] [facility] [address] [place] [address] Sis Salazar CMA Rx Prior Authg Request from Last 3 Months Family History Medical History Relation Name Comments Heart disease Father Cancer Mother Lung disease Mother Relation Name Status Comments Father Alive Mother Alive Social History Tobacco Use Types Packs/Day Years Used Date Smoking Tobacco: Former Cigarettes S tarted: 01/30/2024 Smokeless Tobacco: Former Tobacco Cessation:Counseling Given: Not Answered Alcohol Use Standard Drinks/Week Comments Not Currently 0 (1 standard drink = 0.6 oz pur e alcohol) PHQ-2 Answer Date Recorded Total Score 0 03/26/2024 Childcare Answer Date Recorded Childcare Unknown 10/10/2018 Employment Answer Date Recorded Employment Unknown 10/10/2018 Hunger Screening Answer Date Recorded Within the past 12 months we worried whether our food would run out before we got money to buy more. Never True 06/12/2024 Within the past 12 months th e food we bought just didn't last and we didn't have money to get more. Never True 06/12/2024 Purpose - Life Answer Date Recorded Purpose and direction in life Unknown Sex and Gender Information Value Date Recorded Sex Assigned at Not on file Legal Sex Male 11:48 AM EDT Gender Identity Not on file Sexual Orientation Not on file Last Filed Vital Signs Vital Sign Reading Time Taken Comments Blood Pressure 132/88 06/12/2024 10:48 AM EST Pulse 69 06/12/2024 10:48 AM EST Temperature 36.7 C (98.1 F) 04/12/2024 3:20 PM EST Respiratory Rate 16 04/11/2024 12:29 PM EST Oxygen Saturation 97% 05/17/2024 8:48 AM EST Inhaled Oxygen Concentration - - Weight 103.9 kg (229 lb) 06/12/2024 10:48 AM EST Height 175.3 cm (5' 9 ) 06/12/2024 10:48 AM EST Body Mass Index 33.82 06/12/2024 10:48 AM EST Plan of Treatment Health Maintenance Due Date Last Done Comments DTaP,Tdap and Td Vaccines (6 - Tdap) 08/18/2003 12/26/1997, 01/10/1994, 03/12/1993, Additional history exists Adult BMI Follow Up Plan 2010 Influenza Vaccine 12/30/2024 Depression Screening 03/26/2025 03/26/2024 Adult BMI Screening 06/12/2025 06/12/2024 Tobacco Screening 06/12/2025 06/12/2024 Medical Devices Not on file Insurance [place] [employer] Care Teams Pug Mill Operator Helper Relationship Specialty Start Date End Date Jc Guzman MD PCP - General 09/15/17
--- OUTSIDE RECORDS SUMMARY | 2024-10-30 09:44 | XMS_ITS | Encounter Summary ---
Author Organization [facility] Address [id number] [address] [place] [address] Care Team Providers Care Field Auto Appraiser Name Role Phone Jc Guzman MD Primary Care Provider [phone] Encounter Details Date Type Department Care Team (Late st Contact Info) Description 04/05/2024 Orders Only [facility] [address] [place] [address] External, Scanning Provider Social History Tobacco Use Types Packs/Day Years Used Date Smoking Tobacco: Former Cigarettes S tarted: 01/30/2024 Smokeless Tobacco: Former Alcohol Use Standard Drinks/Week Comments Not Currently [...] got money to buy more. Never True 04/08/2024 Within the past 12 months th e food we bought just didn't last and we didn't have money to get more. Never True 04/08/2024 Purpose - Life Answer Date Recorded Purpose and direction in life Unknown Sex and Gender Information Value Date Recorded Sex Assigned at Not on file Legal Sex Male 11:48 AM EDT Gender Identity Not on file Sexual Orientation Not on file documented as of this encounter Plan of Treatment Not on file documented as of this encounter Procedures Procedure Name Priority Date/Time Associated Diagnosis Comments ECG 12-LEAD Routine 04/05/2024 3:38 PM EST MULTIPLE LABS Routine 04/05/2024 3:06 PM EST documented in this encounter Results * ECG 12 lead (04/05/2024 3:38 PM EST) us Scanning Provider External ECG ORDERABLES Final Result Performing Organization Address [facility] de Phone Number MANUALLY TRANSCRIBED RESULTS * Multiple labs (04/05/2024 3:06 PM EST) us Scanning Provider External VT IMAGING Final Result Performing Organization Address [facility] de Phone Number MANUALLY TRANSCRIBED RESULTS documented in this encounter Visit Diagnoses Not on filedocumented in this encounter Additional Health Concerns Assessment Noted Time PHQ-9 Depression Total Score: 0 03/26/20 24 9:17 AM EST documented as of this encounter Care Teams Field Auto Appraiser Relationship Specialty Start Date End Date Jc Guzman MD PCP - General 09/15/17 documented as of this encounter
--- OUTSIDE RECORDS SUMMARY | 2024-10-30 09:44 | XMS_ITS | Clinical Summary ---
Author Organization [facility] Address [address] [place] [address] Care Team Providers Care Senior Media Director Name Role Phone Jc Guzman MD Primary Care Provider [phone] Allergies Active Allergy Reactions Criticality Noted Date Comments Naproxen Nausea And Vomiting Low 03/03/2023 Medications gabapentin (NEURONTIN) 600 MG tablet Take 0.5 tablets by mouth 2 times daily. Active celecoxib (CELEBREX) 200 MG capsule Take 1 capsule by mouth daily Active pantoprazole (PROTONIX) 20 MG tablet Take 2 tablets by mouth nightly Active ondansetron (ZOFRAN-ODT) 4 MG disintegrating tablet Take 1 tablet by mouth daily 4 Active Cephalexin 500 MG TABS Take 500 mg by mouth in the morning and at bedtime 4 Active ketorolac (TORADOL) 10 MG tablet Take 1 tablet by mouth every 6 hours as needed for Pain 10 tablet 4 Active ferrous sulfate (IRON 325) 325 (65 Fe) MG tablet Take 1 tablet by mouth daily (with breakfast) 30 tablet 1 4 Active nicotine (NICODERM CQ) 14 MG/24HR Place 1 patch onto the skin daily 30 patch 1 4 Active Active Problems Problem Noted Date Diagnosed Date Pancytopenia 02/28/2024 New onset seizure 02/26/2024 Encounters Date Type Department Care Team Description 09/30/2024 2:01 PM EDT - 10/02/2024 11:59 PM EDT Hospital Encounter [facility] Non-Invasive Cardiology [address] [place], [place] [id number] Syncope, unspecified syncope type Discharge Disposition: Home or Self Care 09/25/2024 Orders Only [facility] Admitting [address] [place] [address] Jc Guzman MD 09/20/2024 Transcribe Orders [facility] [address] [place] [address] Jc Guzman MD Syncope, unspecified syncope type (Primary Dx) from Last 3 Months Social History Tobacco Use Types Packs/Day Years Used Date Smoking Tobacco: Every Day Cigarettes Smokeless Tobacco: Former Tobacco Cessation:Ready to Q uit: Not Asked; Counseling Given: Not Answered Alcohol Use Standard Drinks/Week Comments Not Currently 0 (1 standard drink = 0.6 oz pur e alcohol) [facility] Utilities Answer Date Recorded In the past 12 months has th e electric, gas, oil, or water company threatened to shut off services in your home? No 02/27/2024 Hunger Vital Sign Answer Date Recorded Within the past 12 months, y ou worried that your food would run out before you got the money to buy more. Never true 02/27/20 24 Within the past 12 months, t he food you bought just didn't last and you didn't have money to get more. Never true 02/27/2024 PRAPARE - Transportation Answer Date Re corded In the past 12 months, has l ack of transportation kept you from medical appointments or from getting medications? No 01/30 In the past 12 months, has l ack of transportation kept you from meetings, work, or from getting things needed for daily living? No 02/27/2024 Housing Stability Vital Sign Answer Blair e Recorded In the last 12 months, was t here a time when you were not able to pay the mortgage or rent on time? No 02/27/2024 In the past 12 months, how m any times have you moved where you were living? 1 02/27/2024 At any time in the past 12 [facility], were you homeless or living in a nursing home (including now)? No 02/27/2024 Food Insecurity Answer Date Recorded Within the past 12 months, y ou worried that your food would run out before you got the money to buy more. 1 02/27/2024 Within the past 12 months, t he food you bought just didn't last and you didn't have money to get more. 1 02/27/2024 Interpersonal Safety Domain Source: IP Abuse Scr eening Answer Date Recorded Physical abuse Denies 02/27/2024 Verbal abuse Denies 02/27/2024 Emotional abuse Denies 02/27/2024 Financial abuse Denies 02/27/2024 Sexual abuse Denies 02/27/2024 Sex and Gender Information Value Date Recorded Sex Assigned at Not on file Legal Sex Male 10:33 AM EDT Gender Identity Not on file Sexual Orientation Not on file Last Filed Vital Signs Vital Sign Reading Time Taken Comments Blood Pressure 120/72 03/02/2024 11:02 AM EDT Pulse 83 03/02/2024 11:02 AM EDT Temperature 37.1 C (98.8 F) 03/02/2024 11:02 AM EDT Respiratory Rate 16 03/02/2024 11:02 AM EDT Oxygen Saturation 98% 03/02/2024 11:02 AM EDT Inhaled Oxygen Concentration - - Weight 97.8 kg (215 lb 8 oz) 03/01/2024 3:44 AM EDT Height 175.3 cm (5' 9 ) 02/27/2024 12:30 AM EDT Body Mass Index 31.82 02/27/2024 12:30 AM EDT Plan of Treatment Health Maintenance Due Date Last Done Comments DTaP/Tdap/Td vaccine (6 - Tdap) 08/18/2003 12/26/1997, 01/10/1994, 03/12/1993, Additional history exists Depression Screen 2004 Varicella vaccine (1 of 2 - 13+ 2-dose series) 2005 Hepatitis C screen 2010 Pneumococcal 0-49 years Vaccine (1 of 2 - PCV) 08/18/2011 COVID-19 Vaccine ( - season) 2023 Flu vaccine (#1) 11/29/2024 Hepatitis B vaccine Completed 01/10/1994, 01/01/1993, 1992 Hib vaccine Completed 01/10/1994, 03/01, 01/01/1993, Additional history exists Polio vaccine Completed 12/26/1997, 12/30, 01/01/1993, Additional history exists HIV screen Completed 02/28/2024 HPV vaccine Aged Out No longer eligi ble based on patient's age to complete this topic Hepatitis A vaccine Aged Out No longe r eligible based on patient's age to complete this topic Meningococcal (ACWY) vaccine Aged Out No longer eligible based on patient's age to complete this topic Meningococcal B vaccine Aged Out No l onger eligible based on patient's age to complete this topic Procedures Procedure Name Priority Date/Time Associated Diagnosis Comments TILT TABLE Routine 09/30/2024 2:35 PM EDT Syncope, unspecified syncope type HIV SCREEN Routine 02/28/2024 12:02 PM EDT from Last 3 Months or Most Recently Relevant to Health Maintenance Results * Tilt table (09/30/2024 2:35 PM EDT) Heart Rate (Supine) 70 bpm [facility] STRESS BP (Supine) 164/92 bpm [facility] STRESS Rhythm (Supine) SR [facility] STRESS Heart Rate (Initial Tilt) 74 bpm [facility] STRESS BP (Initial Tilt) 159/98 mmHg [facility] STRESS Rhythm (Initial Tilt) SR [facility] STRESS Minutes (Max Heart Rate) 2 [facility] STRESS Heart Rate (Max Heart Rate) 90 bpm [facility] STRESS BP (Max Heart Rate) 157/96 mmHg [facility] STRESS Rhythm (Max Heart Rate) SR [facility] STRESS Minutes (Min Heart Rate) 3 [facility] STRESS Heart Rate (Min Heart Rate) 74 bpm [facility] STRESS BP (Min Heart Rate) 147/91 mmHg [facility] STRESS Rhythm (Min Heart Rate) SR [facility] STRESS Minutes (Max BP) 1 [facility] STRESS Heart Rate (Max BP) 74 bpm [facility] STRESS BP (Max BP) 159/98 mmHg [facility] STRESS Rhythm (Max BP) SR [facility] STRESS Minutes (Min BP) 4 [facility] STRESS Heart Rate (Min BP) 80 bpm [facility] STRESS BP (Min BP) 134/91 mmHg [facility] STRESS Rhythm (Min BP) SR [facility] STRESS Anatomical Region Laterality Modality Cardiac Diagnost ic Narrative 09/30/2024 4:53 PM EDT Study Conclusions: Inconclusive head upright tilt table test study nondiagnostic for neurocardiogenic dysfunction Patient reported dizziness and lightheadedness with a head slumped forward and became unresponsive to voice commands leading to the termination of the test only after 5 minutes from the beginning of the test but there was no significant heart rate or blood pressure abnormalities that can explain his loss of consciousness. If clinically suspicion remains high, empiric treatment and/or re-testing may be indicated. Tilt Table Tilt duration without medication: 5 minutes. Tilt elevation at 70 degrees. Baseline supine HR: 70 bpm. Baseline supine BP: 164/92. Baseline supine rhythm: SR. Initial tilted HR: 74 bpm. Initial tilted BP: 159/98. Initial tilted rhythm: SR. Initial Tilt revealed symptoms such as dizziness and light headedness. The test was stopped due to syncope. Procedure Summary: After explaining the risk, benefits and alternatives to the procedure, informed written consent was obtained. The patient was brought to the tilt table laboratory in a fasting and resting state. The patient was placed on the tilt table in the supine position. ECG patches were applied and an IV was placed. The patient's baseline blood pressure was 164/92 mmHg with a heart rate of 70/minute. The patient was then raised to the 70 degree head upright tilt position with pulse rate, blood pressure and cardiac rhythm monitored and recorded each minute of the study for a maximum of 30 minutes. During the initial 20 minutes of the study, the patient's blood pressure ranged from a high of 159/98 mmHg to a low of 134/91 mmHg, while their heart rate ranged from a low of 74/minute to a high of 90/minute. During this period, the patient reported moderate lightheadedness, severe lightheadedness, headache, and feeling as if they were going to pass out. At this point, the patient was returned to the supine position and monitored for an additional ten minutes. Once the patient felt well enough to be discharged home, they were discharged home with instructions to follow up with their primary care physician and/ or automotive software engineer as previously scheduled. us Jc Guzman MD CV CARDIAC DIAGNOSTIC ORDERABLE S Final Result * HIV Screen (02/28/2024 12:02 PM EDT) [facility] HIV Ag/Ab SEE BELOW 02/29/2024 2:54 AM EDT [facility] Comment: HIV Ag/Ab NONREACTIVE NR No laboratory evidence of HIV infection. If acute HIV infection is suspected, consider testing for HIV-1 RNA. Performed at [facility], [address] [place] [address] . BLOOD SPECIMEN / Unknown 02/28/2024 12:02 PM EDT 02/28/2024 12:21 PM EDT us Chapis Rizvi MD IMMUNOLOGY ORDERABLES Final Res ult [facility] [address] [place] [id number], [facility] [[email or web address]] [phone] [address], [facility] [[email or web address]] [phone] from Last 3 Months or Most Recently Relevant to Health Maintenance Insurance [facility] Advance Directives Documents on File Type Date Recorded Patient Registered Art Therapist Expl anation [employer] Directive 03/05/2024 10:18 AM [employer] Directive 02/29/2024 2:09 PM * Full Code (Latest Code Status on File) Date Activated Date Inactivated Comments 02/27/2024 12:32 AM 03/02/2024 5:23 PM Healthcare Agents on File Name Relationship Healthcare Agent Relationshi p Communication Daisy Araujo Girlfriend Primary Decision Maker Hiren Resendezyessi Parent Secondary Decision Maker Care Teams Senior Media Director Relationship Specialty Start Date End Date Jc Guzman MD [address] [phone] PCP - General Family Medicine 02/16/23
[2024-10-30 10:42] LABS: Anion Gap 12.4; Blood Urea Nitrogen 9.0 mg/dL (7.0-18.0); Calcium 9.0 mg/dL (8.5-10.1); Carbon Dioxide 29.9 mmol/L (21.0-32.0); Chloride 104 mmol/L (98-107); Estimated GFR (African America >60 (>=60 mL/min/1.73m^2); Estimated GFR (Non-African Ame 57 (>=60 mL/min/1.73m^2); Glucose 94 mg/dL (74-106); Magnesium 2.2 mg/dL (1.8-2.4); Potassium 3.3 mmol/L (3.5-5.1); Sodium 143 mmol/L (136-145)
== END 2024-10-30 09:41 | disposition home or self-care (01) ==
LOC: LAB 09:42
PROVIDERS: PCP Family Medicine; Visit Provider Family Medicine
DX: R55 Syncope and collapse (principal)
CPT/HCPCS: 36415; 80048; 83735

== ENCOUNTER 2024-11-04 11:34 | Outpatient (OUT) | payer OTHER, SELFPAY ==
--- OUTSIDE RECORDS SUMMARY | 2024-11-04 11:39 | XMS_ITS | Clinical Summary ---
Author Organization [facility] Address [address] [place] [address] Care Team Providers Care Supervisor Photoengraving Name Role Phone Jc Guzman MD Primary Care Provider [phone] Allergies Active Allergy Reactions Criticality Noted Date [...] - 10/02/2024 11:59 PM EDT Hospital Encounter [facility] Non-Invasive Cardiology [address] [place], [place] [id number] Syncope, unspecified syncope type Discharge Disposition: Home or Self Care 09/25/2024 Orders Only [facility] Admitting [address] [place] [address] Jc Guzman MD 09/20/2024 Transcribe Orders [facility] [address] [place] [address] Jc Guzman MD Syncope, unspecified syncope type (Primary Dx) from Last 3 Months Social History Tobacco Use Types Packs/Day Years Used Date Smoking Tobacco: Every Day Cigarettes Smokeless Tobacco: Former Tobacco Cessation:Ready to Q uit: Not Asked; Counseling Given: Not Answered Alcohol Use Standard Drinks/Week Comments Not Currently 0 (1 standard drink = 0.6 oz pur e alcohol) [facility] Utilities Answer Date Recorded In the past [...] any time in the past 12 [facility], were you homeless or living in a usp (including now)? No 02/27/2024 Food Insecurity Answer [...] with their primary care physician and/ or geography faculty member as previously scheduled. us Jc Guzman MD CV CARDIAC DIAGNOSTIC ORDERABLE S Final Result * HIV Screen (02/28/2024 12:02 PM EDT) [facility] HIV Ag/Ab SEE BELOW 02/29/2024 2:54 AM EDT [facility] Comment: HIV Ag/Ab NONREACTIVE NR No laboratory evidence of HIV infection. If acute HIV infection is suspected, consider testing for HIV-1 RNA. Performed at [facility], [address] [place] [address] [phone]. [phone]. BLOOD SPECIMEN / Unknown 02/28/2024 12:02 PM EDT 02/28/2024 12:21 PM EDT us Chapis Rizvi MD IMMUNOLOGY ORDERABLES Final Res ult [facility] [address] [place] [address], [facility] [phone] [address], [facility] [phone] from Last 3 Months or Most Recently Relevant to Health Maintenance Insurance [facility] Advance Directives Documents on File Type Date Recorded Patient Departmental Buyer Expl anation ACP-Advance Directive 03/05/2024 10:18 AM ACP-Advance Directive 02/29/2024 2:09 PM * Full Code (Latest Code Status on File) Date Activated Date Inactivated Comments 02/27/2024 12:32 AM 03/02/2024 5:23 PM Healthcare Agents on File Name Relationship Healthcare Agent Relationshi p Communication Daisy Araujo Girlfriend Primary Decision Maker Hiren Resendezyessi Parent Secondary Decision Maker Care Teams Supervisor Photoengraving Relationship Specialty Start Date End Date Jc Guzman MD [address] [place] [id number] PCP - General Family Medicine 02/16/23
--- OUTSIDE RECORDS SUMMARY | 2024-11-04 11:39 | XMS_ITS | Clinical Summary ---
Author Organization [employer] Address [id number] [address] [place] [address] Care Team Providers Care Build Technician Name Role Phone Jc Guzman MD Primary Care Provider [phone] Allergies Active Allergy Reactions Criticality Noted Date [...] 09/17/2024 Telephone [facility] Department of [facility] [address] [facility] [address] [place] [address] Sis Salazar CMA Rx Prior [...] on file Insurance [employer] Care Teams Build Technician Relationship Specialty Start Date End Date Jc Guzman MD PCP - General 09/15/17
--- OUTSIDE RECORDS SUMMARY | 2024-11-04 11:39 | XMS_ITS | Encounter Summary ---
Author Organization [facility] Address [id number] [address] [place] [address] Care Team Providers Care Fortune Cookie Maker Name Role Phone Jc Guzman MD Primary Care Provider [phone] Encounter Details Date Type Department Care Team (Late st Contact Info) Description 04/05/2024 Orders Only [facility] [address] [place] [address] External, Scanning Provider Social History [...] ECG ORDERABLES Final Result Performing Organization Address [facility] de Phone Number MANUALLY TRANSCRIBED RESULTS * Multiple labs (04/05/2024 3:06 PM EST) us Scanning Provider External [facility] Final Result Performing Organization Address [facility] de Phone Number MANUALLY TRANSCRIBED RESULTS documented in this encounter Visit Diagnoses Not on filedocumented in this encounter Additional Health Concerns Assessment Noted Time PHQ-9 Depression Total Score: 0 03/26/20 24 9:17 AM EST documented as of this encounter Care Teams Fortune Cookie Maker Relationship Specialty Start Date End Date Jc Guzman MD PCP - General 09/15/17 documented as of this encounter
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
== END 2024-11-04 11:35 | disposition home or self-care (01) ==
LOC: RAD 11:37
PROVIDERS: PCP Family Medicine; Visit Provider Family Medicine
DX: M54.2 Cervicalgia (principal)
CPT/HCPCS: 72040; 73080

== ENCOUNTER 2024-11-06 10:49 | Outpatient (RCR) | payer OTHER, SELFPAY ==
[2024-11-06 12:04] LABS: Anion Gap 14.3; Blood Urea Nitrogen 10.0 mg/dL (7.0-18.0); Calcium 9.0 mg/dL (8.5-10.1); Carbon Dioxide 28.9 mmol/L (21.0-32.0); Chloride 104 mmol/L (98-107); Estimated GFR (African America >60 (>=60 mL/min/1.73m^2); Estimated GFR (Non-African Ame >60 (>=60 mL/min/1.73m^2); Glucose 94 mg/dL (74-106); Magnesium 2.1 mg/dL (1.8-2.4); Potassium 3.2 mmol/L (3.5-5.1); Sodium 144 mmol/L (136-145)
[2024-11-20 12:32] LABS: Anion Gap 12.0; Blood Urea Nitrogen 11.0 mg/dL (7.0-18.0); Calcium 9.3 mg/dL (8.5-10.1); Carbon Dioxide 30.4 mmol/L (21.0-32.0); Chloride 100 mmol/L (98-107); Estimated GFR (African America >60 (>=60 mL/min/1.73m^2); Estimated GFR (Non-African Ame >60 (>=60 mL/min/1.73m^2); Glucose 84 mg/dL (74-106); Magnesium 2.0 mg/dL (1.8-2.4); Potassium 3.4 mmol/L (3.5-5.1); Sodium 139 mmol/L (136-145)
[2024-11-26 13:27] LABS: Anion Gap 14.1; Blood Urea Nitrogen 11.0 mg/dL (7.0-18.0); Calcium 9.3 mg/dL (8.5-10.1); Carbon Dioxide 26.2 mmol/L (21.0-32.0); Chloride 101 mmol/L (98-107); Estimated GFR (African America >60 (>=60 mL/min/1.73m^2); Estimated GFR (Non-African Ame >60 (>=60 mL/min/1.73m^2); Glucose 95 mg/dL (74-106); Magnesium 2.1 mg/dL (1.8-2.4); Potassium 3.3 mmol/L (3.5-5.1); Sodium 138 mmol/L (136-145)
== END 2024-11-28 17:05 | disposition home or self-care (01) ==
LOC: LAB 10:49
PROVIDERS: PCP Family Medicine; Visit Provider Family Medicine
DX: Z51.81 Encounter for therapeutic drug level monitoring (principal); Z79.01 Long term (current) use of anticoagulants; R55 Syncope and collapse
CPT/HCPCS: 36415; 80048; 83735

== ENCOUNTER 2024-11-07 09:28 | Outpatient (REF) | payer OTHER, SELFPAY ==
--- OUTSIDE RECORDS SUMMARY | 2024-11-07 09:31 | XMS_ITS | Encounter Summary ---
Author Organization [facility] Address [id number] [address] [place] [address] Care Team Providers Care Probe Operator Name Role Phone Jc Guzman MD Primary Care Provider [phone] Encounter Details Date Type Department Care Team (Late st Contact Info) Description 04/05/2024 Orders Only [facility] [address] [place] [address] External, Scanning Provider Social History [...] ECG ORDERABLES Final Result Performing Organization Address [facility] de Phone Number MANUALLY TRANSCRIBED RESULTS * Multiple labs (04/05/2024 3:06 PM EST) us Scanning Provider External [place] IMAGING Final Result Performing Organization Address [facility] de Phone Number MANUALLY TRANSCRIBED RESULTS documented in this encounter Visit Diagnoses Not on filedocumented in this encounter Additional Health Concerns Assessment Noted Time PHQ-9 Depression Total Score: 0 03/26/20 24 9:17 AM EST documented as of this encounter Care Teams Probe Operator Relationship Specialty Start Date End Date Jc Guzman MD PCP - General 09/15/17 documented as of this encounter
--- OUTSIDE RECORDS SUMMARY | 2024-11-07 09:31 | XMS_ITS | Clinical Summary ---
Author Organization [employer] tem Address [id number] [address] [place] [address] Care Team Providers Care Diesel Retrofit Designer Name Role Phone Jc Guzman MD Primary Care Provider [phone] Allergies Active Allergy Reactions Criticality Noted Date [...] 09/17/2024 Telephone [facility] Department of [facility] [address] [facility] [address] [place] [address] Sis Salazar CMA Rx Prior [...] on file Insurance [place] [employer] Care Teams Diesel Retrofit Designer Relationship Specialty Start Date End Date Jc Guzman MD PCP - General 09/15/17
--- OUTSIDE RECORDS SUMMARY | 2024-11-07 09:31 | XMS_ITS | Clinical Summary ---
Author Organization [facility] Address [address] [place] [address] Care Team Providers Care Pipe Fitter Helper Name Role Phone Jc Guzman MD Primary Care Provider [phone] Keena Simmons MD Unavailable [phone] Social History Tobacco Use Types Packs/Day Years Used Date Smoking Tobacco: Never Assessed Sex and Gender Information Value Date Recorded Sex Assigned at Not on file Legal Sex Male 7:07 PM EDT Gender Identity Not on file Sexual Orientation Not on file Plan of Treatment Not on file Care Teams Pipe Fitter Helper Relationship Specialty Start Date End Date Jc Guzman MD PCP - General Family Medicine 03/08/24 Keena Simmons MD [facility] [place] [address] Referring Physician Family Medicine 03/08/24
--- OUTSIDE RECORDS SUMMARY | 2024-11-07 09:32 | XMS_ITS | Clinical Summary ---
Author Organization [facility] Address [address] [place] [address] Care Team Providers Care Phlebotomy Specialist Name Role Phone Jc Guzman MD Primary Care Provider [phone] Allergies Active Allergy Reactions Criticality Noted Date [...] - 10/02/2024 11:59 PM EDT Hospital Encounter [facility] Non-Invasive Cardiology [address] [place], [place] [id number] Syncope, unspecified syncope type Discharge Disposition: Home or Self Care 09/25/2024 Orders Only [facility] Admitting [address] [place] [address] Jc Guzman MD 09/20/2024 Transcribe Orders [facility] Access [address] [place] [address] Jc Guzman MD Syncope, unspecified syncope type (Primary Dx) from Last 3 Months Social History Tobacco Use Types Packs/Day Years Used Date Smoking Tobacco: Every Day Cigarettes Smokeless Tobacco: Former Tobacco Cessation:Ready to Q uit: Not Asked; Counseling Given: Not Answered Alcohol Use Standard Drinks/Week Comments Not Currently 0 (1 standard drink = 0.6 oz pur e alcohol) [facility] Utilities Answer Date Recorded In the [...] time in the past 12 m [facility], were you homeless or living in a fpc (including now)? No 02/27/2024 Food Insecurity Answer [...] with their primary care physician and/ or aquatic performer as previously scheduled. us Jc Gzuman MD CV CARDIAC DIAGNOSTIC ORDERABLE S Final Result * HIV Screen (02/28/2024 12:02 PM EDT) [facility] HIV Ag/Ab SEE BELOW 02/29/2024 2:54 AM EDT [facility] Comment: HIV Ag/Ab NONREACTIVE NR No laboratory evidence of HIV infection. If acute HIV infection is suspected, consider testing for HIV-1 RNA. Performed at [facility], [address] [place] [address] [phone]. BLOOD SPECIMEN / Unknown 02/28/2024 12:02 PM EDT 02/28/2024 12:21 PM EDT us Chapis Rizvi MD IMMUNOLOGY ORDERABLES Final Res ult [facility] [address] [place] [address], [facility] [phone] [address], [facility] [phone] from Last 3 Months or Most Recently Relevant to Health Maintenance Insurance * Guarantor: Ethan Rasheed Account Type Relation to Patient Date of Phone Billing Address Personal/Family Self 1990 [address] [place] [address] [employer] Advance Directives Documents on File Type Date Recorded Patient Psychiatric Specialist Expl anation ACP-Advance Directive 03/05/2024 10:18 AM ACP-Advance Directive 02/29/2024 2:09 PM * Full Code (Latest Code Status on File) Date Activated Date Inactivated Comments 02/27/2024 12:32 AM 03/02/2024 5:23 PM Healthcare Agents on File Name Relationship Healthcare Agent Relationshi p Communication Daisy Araujo Girlfriend Primary Decision Maker Hiren Resendezyessi Parent Secondary Decision Maker Care Teams Phlebotomy Specialist Relationship Specialty Start Date End Date Jc Guzman MD [address] [place] [id number] PCP - General Family Medicine 02/16/23
== END 2024-11-07 09:29 | disposition home or self-care (01) ==
LOC: LAB 09:28
PROVIDERS: PCP Family Medicine; Visit Provider Family Medicine
DX: Z00.00 Encounter for general adult medical examination without abnormal findings (principal); R73.09 Other abnormal glucose; R53.83 Other fatigue; Z12.5 Encounter for screening for malignant neoplasm of prostate; Z12.12 Encounter for screening for malignant neoplasm of rectum
CPT/HCPCS: G0328

== ENCOUNTER 2024-11-08 09:19 | Outpatient (OUT) | payer OTHER, SELFPAY ==
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
--- OUTSIDE RECORDS SUMMARY | 2024-11-04 16:26 | XMS_ITS ---
Author Organization [facility] Address [address] [place] [address] Care Team Providers Care Marketing Campaign Analyst Name Role Phone Humberto Guzman Primary Care Provider REASON FOR VISIT x-ray Encounters Encounter Location Date Provider Diagnosis [facility] [address] [place] [address] 11/04/2024 Humberto Guzman Plan Of Treatment No Information Progress Notes * Ethan DONALD LDOB: 3 (34 yo M)Acc No.[id number]:11/04/2024 Patient: Ethan LEE Hannah :1990 A ge:34 Y S ex:Male Address:[address], [place], [address] * true * Date: Generated for Printi ng/Faxing/eTransmitting on: 0 11/08/2024 09:21 AM EDT
--- NOTE | 2024-11-08 09:21 | US_ITS ---
The [address] [address] Patient Name: OLEGARIO DONALD MRN: [id number] date: 1990 Sex: M Assigned Patient Location: [place] Current Patient Location: [place] Accession/Order Number: [id number] Exam Date: 11/08/2024 10:39 Report Date: 11/08/2024 10:45 At the request of: LATRICIA GARCIA MD Procedure: US renal bladder BILATERAL RENAL AND BLADDER ULTRASOUND CLINICAL HISTORY: Abnormal Renal Function. Frequent urination and history of kidney stones COMPARISON: 03/21/[address] 02/25/2024 Estimation of renal size is approximately 10.0 cm on the right and 9.7 cm on the left. Echogenic foci are visualized at the medullary portion of the left kidney measuring up to 7 mm in size at the upper pole. They might be stones. No hydronephrosis is seen. No renal mass lesions were imaged. There is no perinephric fluid. The urinary bladder is partially distended with a volume of 561 mL. No contour or intraluminal abnormalities are seen. Bilateral ureteral jets are visualized. There is no significant post void bladder residual. US/US renal bladder IMPRESSION: POSSIBLE LEFT NEPHROLITHIASIS. NO OBSTRUCTIVE UROPATHY. Impression dictated by: Liz García M.D. 11/08/2024 10:45 AM Dictation Location: [place] [address] Electronically authenticated by: [id number] Y Date: 11/08/2024 10:45
--- OUTSIDE RECORDS SUMMARY | 2024-11-08 09:21 | XMS_ITS | Encounter Summary ---
Author Organization [facility] Address [id number] [address] [place] [address] Care Team Providers Care Chief Of Harbor Patrol Name Role Phone Jc Guzman MD Primary Care Provider [phone] Encounter Details Date Type Department Care Team (Late st Contact Info) Description 04/05/2024 Orders Only [facility] [address] [place] [address] External, Scanning Provider Social History [...] ECG ORDERABLES Final Result Performing Organization Address [facility] de Phone Number MANUALLY TRANSCRIBED RESULTS * Multiple labs (04/05/2024 3:06 PM EST) us Scanning Provider External [place] IMAGING Final Result Performing Organization Address [facility] de Phone Number MANUALLY TRANSCRIBED RESULTS documented in this encounter Visit Diagnoses Not on filedocumented in this encounter Additional Health Concerns Assessment Noted Time PHQ-9 Depression Total Score: 0 03/26/20 24 9:17 AM EST documented as of this encounter Care Teams Chief Of Harbor Patrol Relationship Specialty Start Date End Date Jc Guzman MD PCP - General 09/15/17 documented as of this encounter
--- OUTSIDE RECORDS SUMMARY | 2024-11-08 09:21 | XMS_ITS | Patient Health Record ---
Author Organization [facility] Address [address] [place] [address] Care Team Providers Care Community Affairs Manager Name Role Phone Jc Guzman Primary Care Provider Jon Watts Unavailable [phone] Allergies Allergen (clinical drug ingredient) Drug/Non Drug Allergy documented on EMR Reaction Allergy Type Onset Date Status naproxen stomach issues Drug Allergy Ac tive Reason For Referral No Information Medications Medication SIG (Take, Route, Frequency, Duration) Notes Start Date End Date Status nabumetone Active gabapentin Active pantoprazole Active Social History Tobacco Use: Social History Observation Description Date Details (start date - stop date) Current Smoker NA - NA Smoking History Question Answer Notes Smoking Status Current Smoker Problems Problem Type SNOMED Code ICD Code Onset Dates Problem Status W/U Status Risk Notes Problem 03940052 Chondromalacia, 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 Problem 182291384 Closed dislocation of right patella, initial encounter (S83.004A) Active confirmed Problem 5637083310 Right knee pain, unspecified chronicity (M25.561) Active confirmed Problem 716622892 Preoperative testing (Z01.818) Active confirmed Problem Encounter for other orthopedic aftercare (Z47.89) Active confirmed Problem 04678377 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 confirmed Plan Of Treatment Pending Test Test Name Order Date MRI : Knee W/O Contrast Right - 10251 Crutches OTS 02/16/2023 BMP 02/16/2023 CBC with diff 02/16/2023 PE[facility] - POST OP PT/OT - 12 VISITS 05/09/19 24 Insurance Providers Payer Name Payer Address Payer Phone Subscriber Number Group Number Insured Name Patient Relationship to Insured Coverage Start Date Coverage End Date Medicaid [employer] [place] [address] [place] [address] [id number] OLEGARIO DONALD Self - patient is the insured 3 Medical (General) History Medical History History ICD Code Mental Illness: Yes Kidney trouble Yes Drug Allergies: Yes Surgical History Surgery Date(Month/Year) Arthroscopic right knee with chondroplas ty 03/2023 Broken nose 1999 Hospitalization History Reason Date(Month/Year) Kidney stone 05/2022
--- OUTSIDE RECORDS SUMMARY | 2024-11-08 09:22 | XMS_ITS | Clinical Summary ---
Author Organization [facility] Address [address] [place] [address] Care Team Providers Care Watch Assembly Inspector Name Role Phone Jc Guzman MD Primary Care Provider [phone] Keena Simmons MD Unavailable [phone] Social History Tobacco Use Types Packs/Day Years Used Date Smoking Tobacco: Never Assessed Sex and Gender Information Value Date Recorded Sex Assigned at Not on file Legal Sex Male 7:07 PM EDT Gender Identity Not on file Sexual Orientation Not on file Plan of Treatment Not on file Care Teams Watch Assembly Inspector Relationship Specialty Start Date End Date Jc Guzman MD PCP - General Family Medicine 03/08/24 Keena Simmons MD [facility] [place] [address] Referring Physician Family Medicine 03/08/24
--- OUTSIDE RECORDS SUMMARY | 2024-11-08 09:22 | XMS_ITS | Clinical Summary ---
Author Organization [facility] Address [address] [place] [address] Care Team Providers Care Director Agency & Strategic Partnerships Name Role Phone Jc Guzman MD Primary Care Provider [phone] Allergies Active Allergy Reactions Criticality Noted Date [...] - 10/02/2024 11:59 PM EDT Hospital Encounter [facility] Non-Invasive Cardiology [address] [place], [place] [id number] Syncope, unspecified syncope type Discharge Disposition: Home or Self Care 09/25/2024 Orders Only [facility] Admitting [address] [place] [address] Jc Guzman MD 09/20/2024 Transcribe Orders [facility] Pre Access [address] [place] [address] Jc Guzman MD Syncope, unspecified syncope type (Primary Dx) from Last 3 Months Social History Tobacco Use Types Packs/Day Years Used Date Smoking Tobacco: Every Day Cigarettes Smokeless Tobacco: Former Tobacco Cessation:Ready to Q uit: Not Asked; Counseling Given: Not Answered Alcohol Use Standard Drinks/Week Comments Not Currently 0 (1 standard drink = 0.6 oz pur e alcohol) [facility] Utilities Answer Date Recorded In the [...] any time in the past 12 m [facility], were you homeless or living in a residential (including now)? No 02/27/2024 Food Insecurity Answer [...] with their primary care physician and/ or hire car driver as previously scheduled. us Jc Guzman MD CV CARDIAC DIAGNOSTIC ORDERABLE S Final Result * HIV Screen (02/28/2024 12:02 PM EDT) [facility] HIV Ag/Ab SEE BELOW 02/29/2024 2:54 AM EDT [facility] Comment: HIV Ag/Ab NONREACTIVE NR No laboratory evidence of HIV infection. If acute HIV infection is suspected, consider testing for HIV-1 RNA. Performed at [facility], [address] [place] [address] . BLOOD SPECIMEN / Unknown 02/28/2024 12:02 PM EDT 02/28/2024 12:21 PM EDT us Chapis Rizvi MD IMMUNOLOGY ORDERABLES Final Res ult [facility] [address] [place] [address], [facility] [phone] [address], [facility] [phone] from Last 3 Months or Most Recently Relevant to Health Maintenance Insurance [facility] [employer] Advance Directives Documents on File Type Date Recorded Patient District Commercial Superintendent Expl anation ACP-Advance Directive 03/05/2024 10:18 AM ACP-Advance Directive 02/29/2024 2:09 PM * Full Code (Latest Code Status on File) Date Activated Date Inactivated Comments 02/27/2024 12:32 AM 03/02/2024 5:23 PM Healthcare Agents on File Name Relationship Healthcare Agent Relationshi p Communication Daisy Araujo Girlfriend Primary Decision Maker Hiren Resendezyessi Parent Secondary Decision Maker Care Teams Director Agency & Strategic Partnerships Relationship Specialty Start Date End Date Jc Guzman MD [address] [phone] PCP - General Family Medicine 02/16/23
--- OUTSIDE RECORDS SUMMARY | 2024-11-08 09:22 | XMS_ITS | Clinical Summary ---
Author Organization [employer] tem Address [id number] [address] [place] [address] Care Team Providers Care Wire Basket Maker Name Role Phone Jc Guzman MD Primary Care Provider [phone] Allergies Active Allergy Reactions Criticality Noted Date [...] 09/17/2024 Telephone [facility], A Department of [facility] [address] [facility] [address] [place] [address] Sis Salazar CMA Rx Prior [...] on file Insurance [employer] Care Teams Wire Basket Maker Relationship Specialty Start Date End Date Jc Guzman MD PCP - General 09/15/17
--- OUTSIDE RECORDS SUMMARY | 2024-11-08 09:22 | XMS_ITS | Patient Health Record ---
Author Organization The [facility] in [place] Address [address] [place] [address] Care Team Providers Care Day Care Home Mother Name Role Phone Humberto Guzman Primary Care Provider Keena Simmons Unavailable [phone] Allergies Allergen (clinical drug ingredient) Drug/Non Drug Allergy documented on EMR Reaction Allergy Type Onset Date Status naproxen Naproxen stomach upset Drug Allergy Act brad Results Component Value Reference Range Notes COVID-19, Flu A+B IH Reviewed date:02/25/2024 08:53:17 PM Interpretation: Performing Lab: Notes/Report: COVID neg FLU A neg FLU B neg Control present PROF 14(COMP METB) Reviewed date:03/07/2024 08:08:08 PM Interpretation: Performing Lab: Notes/Report: [facility] , Sodium 141 136-145 mmol/L Potassium 4.7 3.5-5.1 mmol/L Chloride 105 98-107 mmol/L Carbon Dioxide 27.2 21.0-32.0 mmol/L Anion Gap 13.5 Glucose 97 74-106 mg/dL Blood Urea Nitrogen 8.0 7.0-18.0 mg/dL Creatinine 1.15 0.70-1.30 mg/dL Estimated GFR ( Anu >60 >=60 mL/min/1.73m 2 Estimated GFR (Non- Ally >60 >=60 mL/min/1.73m 2 BUN Creatinine Ratio 7.0 Calcium 8.6 8.5-10.1 mg/dL Bilirubin Total 0.4 0.2-1.0 mg/dL Aspartate Amino Transferase 54 15-37 U/L Alanine Aminotransferase 93 16-63 U/L Alkaline Phosphatase 98 46-116 U/L Total Protein 6.7 6.4-8.2 g/dL Albumin Level 3.1 3.4-5.0 g/dL Globulin 3.6 Albumin Globulin Ratio 0.9 Performing Lab: see note ML - [facility] LB XR cervical spine 2-3V Reviewed date:11/04/2024 08:26:28 PM Interpretation: Performing Lab: Notes/Report: Source Facility: [place] [address] XRay Report Signed Patient: OLEGARIO DONALD MR#: [id number] : 1990 Acct:[id number] Age/Sex: 34 / M ADM Date: 11/04/24 Loc: RAD Attending Dr: Latricia Guzman M.D. Ordering Physician: Latricia Guzman M.D. Date of Service: 11/04/24 Procedure(s): XR cervical spine 2-3V Accession Number(s): [id number] cc: Latricia Guzman M.D. [place] [address] Patient Name: OLEGARIO DONALD MRN: [id number] date: 1990 Sex: M Assigned Patient Location: [facility] Current Patient Location: [facility] Accession/Order Number: [id number] Exam Date: 11/04/2024 16:05 Report Date: 11/04/2024 16:09 At the request of: LATRICIA GUZMAN MD Procedure: XR elbow APOORVA min 3v [...] Cm M.D. 11/04/2024 4:09 PM Dictation Location: [place] [address] Electronically authenticated by: [id number] Y Date: 11/04/2024 16:09 Dictated By: Kirk Cm D.O. Signed By: 11/04/24 1611 DD/ 1609 TD/TT: Family Mediator: [place] [address] XRay Report Signed Patient: GIOVANY DONALD MR#: [id number] : 1990 Acct:[id number] Age/Sex: 34 / M ADM Date: 11/04/24 Loc: RAD Attending Dr: Adan Guzman M.D. Ordering Physician: Latricia Guzman M.D. Date of Service: 11/04/24 Procedure(s): XR cer vical spine 2-3V Accession Number(s): [id number] cc: Latricia Guzman M.D. [place] [address] Patient Name: OLEGARIO DONALD MRN: [id number] date: 1990 Sex: M Assigned Patient Location: [facility] Current Patient Loca tion: RAD Accession/Order Numb er: [id number] Exam Date: 11/04/2024 16:05 Report Date: 11/04/2024 16:09 At the request of: LATRICIA GUZMAN MD Procedure: XR elbow APOORVA min 3v 3 viewscervical spine HISTORY: Right neck pain. Elbow pain. Golf cart injury. COMPARISON: None POSTOPERATIVE CHANGE S: None BONY ALIGNMENT: Straightening HYPERMOBILITY::No be nding imaging. LISTHESIS:None FRACTURE: None DISC DEGENERATION: M ild C5-6 spondylosis. Mild facet degeneration. FACETS: Adequate alignment FORAMEN: Not assessed DENS: Intact CRANIOCERVICAL JUNCT ION: Unremarkable SOFT TISSUES: Unremarkable X R/XR cervical spine 2-3V IMPRESSION: No acute displaced fracture 3 views both elbows Adequate alignment without acute displaced fracture. No joint effusion or soft tissue abnormality. IMPRESSION: Unremark able exam. Impression dictated by: Kirk Cm M.D. 11/04/2024 4:09 PM Dictation Location: [place] [address] Electronically authenticated by: [id number] Y Date: 11/04/2024 16:09 Dictated By: Mikey Cm D.O. Signed By: 11/04/24 1611 DD/ 1609 TD/TT: Family Mediator: PROF DRAKE 8 (BAS METB) Reviewed date:03/21/2024 02:55:56 PM Interpretation: Performing Lab: Notes/Report: [facility] , Sodium 140 136-145 mmol/L Potassium 3.9 3.5-5.1 mmol/L Chloride 103 98-107 mmol/L Carbon Dioxide 27.6 21.0-32.0 mmol/L Anion Gap 13.3 Glucose 88 74-106 mg/dL Blood Urea Nitrogen 11.0 7.0-18.0 mg/dL Creatinine 1.23 0.70-1.30 mg/dL Estimated GFR ( Anu >60 >=60 mL/min/1.73m 2 Estimated GFR (Non- Ally >60 >=60 mL/min/1.73m 2 BUN Creatinine Ratio 8.9 Calcium 9.5 8.5-10.1 mg/dL Performing Lab: see note ML - [facility] LB PROF 14(COMP METB) Reviewed date:04/25/2024 07:59:21 PM Interpretation: Performing Lab: Notes/Report: [facility] , Sodium 142 136-145 mmol/L Potassium 3.9 3.5-5.1 mmol/L Chloride 106 98-107 mmol/L Carbon Dioxide 26.1 21.0-32.0 mmol/L Anion Gap 13.8 Glucose 85 74-106 mg/dL Blood Urea Nitrogen 11.0 7.0-18.0 mg/dL Creatinine 1.26 0.70-1.30 mg/dL Estimated GFR ( Anu >60 >=60 mL/min/1.73m 2 Estimated GFR (Non- Ally >60 >=60 mL/min/1.73m 2 BUN Creatinine Ratio 8.7 Calcium 9.0 8.5-10.1 mg/dL Bilirubin Total 0.4 0.2-1.0 mg/dL Aspartate Amino Transferase 6 15-37 U/L Alanine Aminotransferase 26 16-63 U/L Alkaline Phosphatase 65 46-116 U/L Total Protein 6.9 6.4-8.2 g/dL Albumin Level 3.8 3.4-5.0 g/dL Globulin 3.1 Albumin Globulin Ratio 1.2 Performing Lab: see note ML - [facility] LB CBC AUTO DIFF Reviewed date:04/29/2024 08:37:25 PM Interpretation: Performing Lab: Notes/Report: [facility] , White Blood Count 6.6 4.0-11.0 10 3/uL Red Blood Count 4.53 4.70-6.10 10 6/uL Hemoglobin 14.3 14.0-18.0 g/dL Hematocrit 41.3 42.0-54.0 % Mean Corpuscular Volume 91.2 80.0-94.0 fL Mean Corpuscular Hemoglobin 31.6 25.9-34.0 pg Mean Corpuscular HGB Conc 34.6 29.9-35.2 g/dL Red Cell Distribution Width 12.9 11.0-15.0 % Platelet Count 213 150-450 10 3/uL Mean Platelet Volume 9.9 9.5-13.5 fL Neutrophils Percent Auto 63.0 43.0-75.0 % Lymphocytes Percent Auto 26.5 20.5-60.0 % Monocytes Percent Auto 6.6 1.7-12.0 % Eosinophils Percent Auto 3.0 0.9-7.0 % Basophils Percent Auto 0.6 0.2-2.0 % Immature Granulocytes Pct Auto 0.3 0.0-0.5 % Neutrophils Absolute Auto 4.2 1.4-6.5 10 3/uL Lymphocytes Absolute Auto 1.8 1.2-3.8 10 3/uL Monocytes Absolute Auto 0.4 0.3-0.8 10 3/uL Eosinophils Absolute Auto 0.2 0.0-0.7 10 3/uL Basophils Absolute Auto 0.0 0.0-0.1 10 3/uL Immature Granulocytes Abs Auto 0.02 0.00-0.03 10 3/uL Performing Lab: see note ML - [facility] LB IRON Reviewed date:04/29/2024 08:37:25 PM Interpretation: Performing Lab: Notes/Report: [facility] , Iron 73.0 65.0-175.0 ug/dL Performing Lab: see note - [facility] LB PROF 14(COMP METB) Reviewed date:10/15/2024 04:44:02 PM Interpretation: Performing Lab: Notes/Report: [facility] , Sodium 138 136-145 mmol/L Potassium 3.2 3.5-5.1 mmol/L Chloride 101 98-107 mmol/L Carbon Dioxide 29.2 21.0-32.0 mmol/L Anion Gap 11.0 Glucose 84 74-106 mg/dL Blood Urea Nitrogen 8.0 7.0-18.0 mg/dL Creatinine 1.22 0.70-1.30 mg/dL Estimated GFR ( Anu >60 >=60 mL/min/1.73m 2 Estimated GFR (Non- Ally >60 >=60 mL/min/1.73m 2 BUN Creatinine Ratio 6.6 Calcium 9.5 8.5-10.1 mg/dL Bilirubin Total 0.7 0.2-1.0 mg/dL Aspartate Amino Transferase 16 15-37 U/L Alanine Aminotransferase 23 16-63 U/L Alkaline Phosphatase 85 46-116 U/L Total Protein 7.1 6.4-8.2 g/dL Albumin Level 3.8 3.4-5.0 g/dL Globulin 3.3 Albumin Globulin Ratio 1.2 Performing Lab: see note - [facility] LB PSA SCREENING Reviewed date:10/15/2024 04:44:03 PM Interpretation: Performing Lab: Notes/Report: [facility] , Prostate Specific Antigen Scrn 0.88 <=4.00 ng/mL Performing Lab: see note ML - [facility] LB T4 Reviewed date:10/15/2024 04:44:03 PM Interpretation: Performing Lab: Notes/Report: [facility] , T4 Thyroxine 8.80 4.50-12.10 ug/dL Performing Lab: see note - [facility] LB TSH Reviewed date:10/15/2024 04:44:03 PM Interpretation: Performing Lab: Notes/Report: [facility] , Thyroid Stimulating Hormone 1.099 0.358-3.740 uIU/mL Performing Lab: see note - [facility] LB MAGNESIUM Reviewed date:10/30/2024 07:22:51 PM Interpretation: Performing Lab: Notes/Report: [facility] , Magnesium 2.2 1.8-2.4 mg/dL Performing Lab: see note - [facility] LB PROF CHEM 8 (BAS METB) Reviewed date:10/30/2024 07:22:51 PM Interpretation: Performing Lab: Notes/Report: [facility] , Sodium 143 136-145 mmol/L Potassium 3.3 3.5-5.1 mmol/L Chloride 104 98-107 mmol/L Carbon Dioxide 29.9 21.0-32.0 mmol/L Anion Gap 12.4 Glucose 94 74-106 mg/dL Blood Urea Nitrogen 9.0 7.0-18.0 mg/dL Creatinine 1.43 0.70-1.30 mg/dL Estimated GFR ( Anu >60 >=60 mL/min/1.73m 2 Estimated GFR (Non- Ally 57 >=60 mL/min/1.73m 2 BUN Creatinine Ratio 6.3 Calcium 9.0 8.5-10.1 mg/dL Performing Lab: see note - [facility] LB XR elbow APOORVA min 3v Reviewed date:11/04/2024 08:26:28 PM Interpretation: Performing Lab: Notes/Report: Source Facility: [place] [address] [place] [address] XRay Report Signed Patient: OLEGARIO DNOALD MR#: [id number] : 1990 Acct:[id number] Age/Sex: 34 / M ADM Date: 11/04/24 Loc: RAD Attending Dr: Latricia Guzman M.D. Ordering Physician: Latricia Guzman M.D. Date of Service: 11/04/24 Procedure(s): XR elbow APOORVA min 3v Accession Number(s): [id number] cc: Latricia Guzman M.D. [place] [address] Patient Name: OLEGARIO DONALD MRN: [id number] date: 1990 Sex: M Assigned Patient Location: RAD Current Patient Location: RAD Accession/Order Number: [id number] Exam Date: 11/04/2024 16:05 Report Date: 11/04/2024 16:09 At the request of: LATRICIA GUZMAN MD Procedure: XR elbow APOORVA min 3v 3 viewscervical spine HISTORY: Right neck pain. Elbow pain. Golf cart injury. COMPARISON: None POSTOPERATIVE CHANGES: None BONY ALIGNMENT: Straightening HYPERMOBILITY::No bending imaging. LISTHESIS:None FRACTURE: None DISC DEGENERATION: Mild C5-6 spondylosis. Mild facet degeneration. FACETS: Adequate alignment FORAMEN: Not assessed DENS: Intact CRANIOCERVICAL JUNCTION: Unremarkable SOFT TISSUES: Unremarkable XR/XR elbow APOORVA min 3v IMPRESSION: No acute displaced fracture 3 views both elbows Adequate alignment without acute displaced fracture. No joint effusion or soft tissue abnormality. IMPRESSION: Unremarkable exam. Impression dictated by: Kirk Cm M.D. 11/04/2024 4:09 PM Dictation Location: [place] [address] Electronically authenticated by: [id number] Y Date: 11/04/2024 16:09 Dictated By: Kirk Cm D.O. Signed By: 11/04/24 1612 DD/ 1609 TD/TT: Family Mediator: [place] [address] XRay Report Signed Patient: GIOVANY DONALD MR#: [id number] : 1990 Acct:[id number] Age/Sex: 34 / M ADM Date: 11/04/24 Loc: RAD Attending Dr: Adan Guzman M.D. Ordering Physician: Latricia Guzman M.D. Date of Service: 11/04/24 Procedure(s): XR elb ow APOOVRA min 3v Accession Number(s): [id number] cc: Latricia Guzman M.D. [address] [address] Patient Name: OLEGARIO DONALD MRN: [id number] date: 1990 Sex: M Assigned Patient Location: RAD Current Patient Loca tion: RAD Accession/Order Numb er: [id number] Exam Date: 11/04/2024 16:05 Report Date: 11/04/2024 16:09 At the request of: LATRICIA GUZMAN MD Procedure: XR elbow APOORVA min 3v 3 viewscervical spine HISTORY: Right neck pain. Elbow pain. Golf cart injury. COMPARISON: None POSTOPERATIVE CHANGE S: None BONY ALIGNMENT: Straightening HYPERMOBILITY::No be nding imaging. LISTHESIS:None FRACTURE: None DISC DEGENERATION: M ild C5-6 spondylosis. Mild facet degeneration. FACETS: Adequate alignment FORAMEN: Not assessed DENS: Intact CRANIOCERVICAL JUNCT ION: Unremarkable SOFT TISSUES: Unremarkable X R/XR elbow APOORVA min 3v IMPRESSION: No acute displaced fracture 3 views both elbows Adequate alignment without acute displaced fracture. No joint effusion or soft tissue abnormality. IMPRESSION: Unremark able exam. Impression dictated by: Kirk Cm M.D. 11/04/2024 4:09 PM Dictation Location: [place] [address] Electronically authenticated by: [id number] Y Date: 11/04/2024 16:09 Dictated By: Mikey Cm D.O. Signed By: 11/04/24 1612 DD/ 1609 TD/TT: Family Mediator: MAGNESIUM Reviewed date:11/06/2024 12:53:15 PM Interpretation: Performing Lab: Notes/Report: [facility] , Magnesium 2.1 1.8-2.4 mg/dL Performing Lab: see note ML - [facility] LB PROF CHEM 8 (BAS METB) Reviewed date:11/06/2024 12:53:15 PM Interpretation: Performing Lab: Notes/Report: [facility] , Sodium 144 136-145 mmol/L Potassium 3.2 3.5-5.1 mmol/L Chloride 104 98-107 mmol/L Carbon Dioxide 28.9 21.0-32.0 mmol/L Anion Gap 14.3 Glucose 94 74-106 mg/dL Blood Urea Nitrogen 10.0 7.0-18.0 mg/dL Creatinine 1.13 0.70-1.30 mg/dL Estimated GFR ( Anu >60 >=60 mL/min/1.73m 2 Estimated GFR (Non- Ally >60 >=60 mL/min/1.73m 2 BUN Creatinine Ratio 8.8 Calcium 9.0 8.5-10.1 mg/dL Performing Lab: see note ML - [facility] LB Occult Blood* Reviewed date:11/07/2024 06:55:29 PM Interpretation: Performing Lab: Notes/Report: [facility] , Occult Blood Negative Performing Lab: see note ML - [facility] LB PROF CHEM 8 (BAS METB) Reviewed date:10/23/2024 09:30:31 PM Interpretation: Performing Lab: Notes/Report: [facility] , Sodium 139 136-145 mmol/L Potassium 3.5 3.5-5.1 mmol/L Chloride 102 98-107 mmol/L Carbon Dioxide 29.3 21.0-32.0 mmol/L Anion Gap 11.2 Glucose 100 74-106 mg/dL Blood Urea Nitrogen 15.0 7.0-18.0 mg/dL Creatinine 1.26 0.70-1.30 mg/dL Estimated GFR ( Anu >60 >=60 mL/min/1.73m 2 Estimated GFR (Non- Ally >60 >=60 mL/min/1.73m 2 BUN Creatinine Ratio 11.9 Calcium 9.1 8.5-10.1 mg/dL Performing Lab: see note ML - [facility] LB MAGNESIUM Reviewed date:10/23/2024 09:30:31 PM Interpretation: Performing Lab: Notes/Report: [facility] , Magnesium 2.1 1.8-2.4 mg/dL Performing Lab: see note ML - [facility] LB MAGNESIUM Reviewed date:10/15/2024 04:44:02 PM Interpretation: Performing Lab: Notes/Report: [facility] , Magnesium 2.1 1.8-2.4 mg/dL Performing Lab: see note ML - [facility] LB LIPID PROFILE Reviewed date:10/15/2024 04:44:02 PM Interpretation: Performing Lab: Notes/Report: [facility] , Triglycerides 101 <=150 mg/dL Cholesterol 191 <=200 mg/dL HDL Cholesterol 42 40-60 mg/dL > or =60 mg/dl - LOW CARDIOVASCULAR RISK <40 mg/dl - HIGH CARDIOVASCULAR RISK LDL Cholesterol Calculated 128.8 <100 mg/dl OPTIMAL 100-129 mg/dl NEAR OR ABOVE OPTIMAL 130-159 mg/dl BORDERLINE HIGH 160-189 mg/dl HIGH >190 mg/dl VERY HIGH VLDL CHOLESTEROL 20.2 Chol HDL Ratio 4.5 3.3 - 4.4 LOW RISK 4.4 - 7.1 AVERAGE RISK 7.1 - 11.0 MODERATE RISK >11.0 HIGH RISK Performing Lab: see note - [facility] LB INSULIN Reviewed date:10/16/2024 05:38:54 PM Interpretation: Performing Lab: Notes/Report: [facility] , Insulin 7.5 2.6-24.9 uIU/mL Performed at: [facility] [address] [id number] Mycology Teacher: Justino Aragon PhD, Phone: [phone] Performing Lab: see note - [facility] LB GLYCOHEMOGLOBIN A1C Reviewed date:10/15/2024 04:44:02 PM Interpretation: Performing Lab: Notes/Report: [facility] , Glycohemoglobin A1C 5.2 4.5-6.2 % ADA RECOMMENDED LIMIT 4.0 - 6.0 ADA THERAPEUTIC TARGET < 7.0 ACTION SUGGESTED > 7.0 Estimated Average Glucose 103 Performing Lab: see note - [facility] FREE T3 Reviewed date:10/15/2024 04:44:02 PM Interpretation: Performing Lab: Notes/Report: [facility] , Free T3 2.78 2.18-3.98 pg/mL Performing Lab: see note - [facility] LB CBC AUTO DIFF Reviewed date:10/15/2024 04:44:02 PM Interpretation: Performing Lab: Notes/Report: [facility] , White Blood Count 7.2 4.0-11.0 10 3/uL Red Blood Count 5.08 4.70-6.10 10 6/uL Hemoglobin 15.8 14.0-18.0 g/dL Hematocrit 45.3 42.0-54.0 % Mean Corpuscular Volume 89.2 80.0-94.0 fL Mean Corpuscular Hemoglobin 31.1 25.9-34.0 pg Mean Corpuscular HGB Conc 34.9 29.9-35.2 g/dL Red Cell Distribution Width 11.9 11.0-15.0 % Platelet Count 253 150-450 10 3/uL Mean Platelet Volume 10.3 9.5-13.5 fL Neutrophils Percent Auto 67.6 43.0-75.0 % Lymphocytes Percent Auto 22.4 20.5-60.0 % Monocytes Percent Auto 6.4 1.7-12.0 % Eosinophils Percent Auto 2.2 0.9-7.0 % Basophils Percent Auto 1.1 0.2-2.0 % Immature Granulocytes Pct Auto 0.3 0.0-0.5 % Neutrophils Absolute Auto 4.9 1.4-6.5 10 3/uL Lymphocytes Absolute Auto 1.6 1.2-3.8 10 3/uL Monocytes Absolute Auto 0.5 0.3-0.8 10 3/uL Eosinophils Absolute Auto 0.2 0.0-0.7 10 3/uL Basophils Absolute Auto 0.1 0.0-0.1 10 3/uL Immature Granulocytes Abs Auto 0.02 0.00-0.03 10 3/uL Performing Lab: see note ML - [facility] CA echo doppler complete Reviewed date:09/17/2024 08:31:28 PM Interpretation: Performing Lab: Notes/Report: Source Facility: [place] [address] Cardiology Report Signed Patient: OLEGARIO DONALD MR#: [id number] : 1990 Acct:[id number] Age/Sex: 34 / M ADM Date: 09/17/24 Loc: CARD Attending Dr: Latricia Guzman M.D. Ordering Physician: Latricia Guzman M.D. Date of Service: 09/17/24 Procedure(s): CA echo doppler complete Accession Number(s): [id number] cc: Latricia Guzman M.D. Patient Name: OLEGARIO DONALD MR#: [id number] : 1990 Exam Date: 09/17/2024 Ordering Doctor: DR LATRICIA GUZMAN . ECHOCARDIOGRAM REPORT PROCEDURE: CA ECHO DOPPLER COMPLETE INDICATIONS: Orthostatic dizziness, smoker COMPARISON: None. DESCRIPTION: COMPLETE ECHOCARDIOGRAM Real-time transthoracic echocardiography with 2D, M-mode, spectral and color flow Doppler performed. QUALITY: Technical quality was good. LEFT VENTRICLE: Normal chamber size. Normal left ventricular wall thickness. Estimated left ventricular ejection fraction is 55-60%. LV EF: Normal left ventricular ejection fraction, (>55%). DIASTOLIC: Normal diastolic function. ATRIAL SEPTUM: Visually appears intact. LEFT ATRIUM: Normal chamber size. RIGHT ATRIUM: Normal chamber size. RIGHT VENTRICLE: Normal chamber size. Normal right ventricular systolic function. TRICUSPID VALVE: Normal mobility and thickness. No stenosis with trivial regurgitation. Doppler studies reveal mildly (35-45) elevated right sided pressures. RVSP 37 mmHg MITRAL VALVE: Normal mobility and thickness. No evidence of mitral valve stenosis. There is no mitral annular calcification. No mitral regurgitation. AORTIC VALVE: Normal trileaflet appearance. No visible sclerosis. Normal leaflet mobility. No evidence of aortic valve stenosis. No aortic regurgitation. AORTIC ROOT: Normal diameter and appearance, measuring 3.9 cm. Ascending aorta is normal in size, measuring 3.0 cm. PULMONIC VALVE: Normal thickness and mobility. No stenosis. Trivial regurgitation. PERICARDIUM: No evidence of pericardial effusion. IVC: Collapses with inspirations. IVC is dilated (2.4 cm) PLEURA: CONCLUSION: 1. Normal left ventricular size and systolic function. Estimated LVEF is 55 to 60%. 2. Normal right ventricular size and systolic function. 3. No significant valvular dysfunction. 4. Mildly elevated right-sided pressures. 5. No pericardial effusion. Adult Echocardiography Procedure Report Left Ventricle LVEDD (3.7 - 5.6 cm): 4.62 cm LVESD (2.2 - 4.0 cm): 3.28 cm LVIVS thickness (0.6 - 1.2 cm): 0.93 cm LVPW thickness (0.5 - 1.0 cm): 1.03 cm e': 0.14 m/s E - e': 5.37 LVOT Max Gradient: 2.85 mm[Hg] LVOT Area (cm2): 0.84 m/s Peak Velocity (LVOT): 0.84 m/s Mean Velocity (LVOT): 0.57 m/s LVOT Diameter 2.35 cm Left Atrium LA Volume Index (2D A2C): 25.65 ml/m2 Left Atrium Systolic Dimension: 3.14 cm Mitral Valve MV E to A Ratio: 1.14 Mitral Valve A-Wave Peak Velocity: 0.66 m/s Mitral Valve E-Wave Peak Velocity: 0.76 m/s Right Ventricle Aorta AO Root Diam: 3.89 cm Ascending Ao Diam: 3.05 cm Aortic Valve AoV Area (Peak Mustapha): 4.17 cm2, 4.17 cm2 AoV Area (VTI): 4.12 cm2, 4.12 cm2 Peak Velocity(Antegrade Flow): 0.88 m/s Peak Gradient(Antegrade Flow): 3.08 mm[Hg] Mean Velocity(Antegrade Flow): 0.57 m/s Mean Gradient(Antegrade Flow): 1.53 mm[Hg] Velocity Time Integral: 19.34 cm Tricuspid Valve Peak Velocity (Regurgitant Flow): 2.67 m/s Pulmonic Valve Mean Gradient: 1.43 mm[Hg] Mean Velocity: 0.55 m/s Peak Velocity: 0.87 m/s, 0.77 m/s Peak Gradient: 2.40 mm[Hg], 3.01 mm[Hg] Right Atrium Right Atrium Systolic Pressure: 43.75 ml, 43.75 ml Dictated by: Max Barba M.D. on 09/17/2024 at 15:49 Approved by: Max Barba M.D. on 09/17/2024 at 15:53 Dictated By: MAX BARBA Signed By: 09/17/24 1554 DD/ 1553 TD/TT: Family Mediator: [place] [address] Cardiology Report Signed Patient: GIOVANY DONALD MR#: [id number] : 1990 Acct:[id number] Age/Sex: 34 / M ADM Date: 09/17/24 Loc: CARD Attending Dr: Adan Guzman M.D. Ordering Physician: Latricia Guzman M.D. Date of Service: 09/17/24 Procedure(s): CA ech o doppler complete Accession Number(s): [id number] cc: Latricia Guzman M.D. Patient Name: OLEGARIO DONALD MR#: [id number] : 1990 Exam Date: 09/17/2024 Ordering Doctor: DR LATRICIA GUZMAN . ECHOCARDIOGRAM REPORT PROCEDURE: CA ECHO DOPPLER COMPLETE INDICATIONS: Orthost atic dizziness, smoker COMPARISON: None. DESCRIPTION: COMPLET E ECHOCARDIOGRAM Real-time transthoracic echocardiography wit h 2D, M-mode, spectral and color flow Doppler performed. QUALITY: Technical quality was good. LEFT VENTRICLE: Norm al chamber size. Normal left ventricular wall thickness. Estimated left ventricular ejection fraction is 55-60%. LV EF: Normal left ventricular ejection fraction, (>55%). DIASTOLIC: Normal diastolic function. ATRIAL SEPTUM: Visua lly appears intact. LEFT ATRIUM: Normal chamber size. RIGHT ATRIUM: Normal chamber size. RIGHT VENTRICLE: Nor mal chamber size. Normal right ventricular systolic function. TRICUSPID VALVE: Nor mal mobility and thickness. No stenosis with trivial regurgitation. Doppl er studies reveal mildly (35-45) elevated right sided pressures. RVSP 37 mmHg MITRAL VALVE: Normal mobility and thickness. No evidence of mitral valve stenosis. There is n o mitral annular calcification. No mitral regurgitation. AORTIC VALVE: Normal trileaflet appearance. No visible sclerosis. Normal leaflet mobility. No evidence of aortic valve stenosis. No aortic regurgitation. AORTIC ROOT: Normal diameter and appearance, measuring 3.9 cm. Ascending aorta is normal in s ize, measuring 3.0 cm. PULMONIC VALVE: Norm al thickness and mobility. No stenosis. Trivial regurgitation. PERICARDIUM: No evid ence of pericardial effusion. IVC: Collapses with inspirations. IVC is dilated (2.4 cm) PLEURA: CONCLUSION: 1. Normal left ventricular size and systolic function. Estimated LVEF is 55 to 60%. 2. Normal right ventricular size and systolic function. 3. No significant valvular dysfunction. 4. Mildly elevated right-sided pressures. 5. No pericardial effusion. Adult Echocardiograp hy Procedure Report Left Ventricle LVEDD (3.7 - 5.6 cm) : 4.62 cm LVESD (2.2 - 4.0 cm) : 3.28 cm LVIVS thickness (0.6 - 1.2 cm): 0.93 cm LVPW thickness (0.5 - 1.0 cm): 1.03 cm e': 0.14 m/s E - e': 5.37 LVOT Max Gradient: 2 .85 mm[Hg] LVOT Area (cm2): 0.84 m/s Peak Velocity (LVOT) : 0.84 m/s Mean Velocity (LVOT) : 0.57 m/s LVOT Diameter 2.35 cm Left Atrium LA Volume Index (2D A2C): 25.65 ml/m2 Left Atrium Systolic Dimension: 3.14 cm Mitral Valve MV E to A Ratio: 1.14 Mitral Valve A-Wave Peak Velocity: 0.66 m/s Mitral Valve E-Wave Peak Velocity: 0.76 m/s Right Ventricle Aorta AO Root Diam: 3.89 cm Ascending Ao Diam: 3 .05 cm Aortic Valve AoV Area (Peak Mustapha): 4.17 cm2, 4.17 cm2 AoV Area (VTI): 4.12 cm2, 4.12 cm2 Peak Velocity(Antegr meghan Flow): 0.88 m/s Peak Gradient(Antegr meghan Flow): 3.08 mm[Hg] Mean Velocity(Antegr meghan Flow): 0.57 m/s Mean Gradient(Antegr meghan Flow): 1.53 mm[Hg] Velocity Time Integr al: 19.34 cm Tricuspid Valve Peak Velocity (Regurgitant Flow): 2.67 m/s Pulmonic Valve Mean Gradient: 1.43 mm[Hg] Mean Velocity: 0.55 m/s Peak Velocity: 0.87 m/s, 0.77 m/s Peak Gradient: 2.40 mm[Hg], 3.01 mm[Hg] Right Atrium Right Atrium Systoli c Pressure: 43.75 ml, 43.75 ml Dictated by: Max Barba M.D. on 09/17/2024 at 15:49 Approved by: Max Barba M.D. on 09/17/2024 at 15:53 Dictated By: MAX BARBA Signed By: 09/17/24 1554 DD/ 1553 TD/TT: Family Mediator: ECG 12 lead Reviewed date:05/06/2024 08:33:42 PM Interpretation: Performing Lab: Notes/Report: Source Facility: [place] [address] [place] [address] Electrocardiograph Report Signed Patient: OLEGARIO DONALD MR#: [id number] : 1990 Acct:[id number] Age/Sex: 33 / M ADM Date: 05/03/24 Loc: ER Attending Dr: Ordering Physician: Kirk Lynch Date of Service: 05/03/24 Procedure(s): ECG 12 lead Accession Number(s): [id number] cc: [facility] Test Date: 2024-05-03 Pat Name: OLEGARIO DONALD Department: Room: - Gender: Male Fiscal Services Manager: : 1990 Requested By: LATRICIA GUZMAN Order Number: [id number] Reading MD: BLAYNE VALENCIA Measurements Intervals [place] Rate: 56 P: 44 UT: 142 QRS: 76 QRSD: 104 T: 41 QT: 416 QTc: 407 Interpretive Statements 1100 Sinus rhythm 1470 with occasional supraventricular premature complexes 2440 Incomplete right bundle branch block 9140 abnormal rhythm ECG Compared to ECG 04/10/2024 00:42:36 Incomplete right bundle-branch block now present Electronically Signed On 05-06-2024 20:18:16 EST by BLAYNE VALENCIA Dictated By: Blayne Valencia D.O. Signed By: 05/06/242017 DD/ 51 TD/TT: Family Mediator: [place] [address] Electrocardiograph Report Signed Patient: GIOVANY DONALD MR#: [id number] : 1990 Acct:[id number] Age/Sex: 33 / M ADM Date: 05/03/24 Loc: ER Attending Dr: Ordering Physician: Kirk Lynch Date of Service: 05/03/24 Procedure(s): ECG 12 lead Accession Number(s): [id number] cc: [facility] Test Date: 2024-05-03 Pat Name: OLEGARIO GRACE Department: 22 Room: - Gender: Male Fiscal Services Manager: : 1990 Requested By: LATRICIA GUZMAN Order Number: [id number] Reading MD: BLAYNE VALENCIA Measurements Intervals [place] Rate: 56 P: 44 UT: 142 QRS: 76 QRSD: 104 T: 41 QT: 416 QTc: 407 Interpretive Statements 1100 Sinus rhythm 1470 with occasional supraventricular premature complexes 2440 Incomplete righ t bundle branch block 9140 abnormal rhy thm ECG Compared to ECG 04/10/2024 00:42:36 Incomplete right bundle-branch block now present Electronically Amara d On 05-06-2024 20:18:16 EST by BLAYNE VALENCIA Dictated By: Blayne Valencia D.O. Signed By: 05/06/242017 DD/ 51 TD/TT: Family Mediator: Troponin I High Sensitivity Reviewed date:05/05/2024 08:32:06 PM Interpretation: Performing Lab: Notes/Report: [facility] , Troponin I High Sensitivity 6.3 4.0-76.1 pg/mL CUT-OFF POINTS HAVE BEEN ESTABLISHED BASED ON THE FOURTH UNIVERSAL DEFINITION OF MYOCARDIAL INFARCTION. THE UPPER REFERENCE LIMIT (URL) OF TROPONIN, DEFINED THE 99TH PERCENTILE OF cTnI DISTRIBUTION IN A REFERENCE POPULATION, HAS BEEN CONFIRMED THE DECISION THRESHOLD FOR DE DIAGNOSIS. 99TH PERCENTILE = 76.2 PG/ML NOTE: HIGH-SENSITIVITY TROPONIN ASSAY IS NOT INTENDED TO BE USED IN ISOLATION BUT SHOULD BE INTERPRETED IN CONJUNCTION WITH OTHER DIAGNOSTIC AND CLINICAL INFORMATION. Performing Lab: see note ML - [facility] LB PROF CHEM 8 (MINA KNIGHT) Reviewed date:05/05/2024 08:32:06 PM Interpretation: Performing Lab: Notes/Report: [facility] , Sodium 141 136-145 mmol/L Potassium 3.4 3.5-5.1 mmol/L Chloride 103 98-107 mmol/L Carbon Dioxide 29.8 21.0-32.0 mmol/L Anion Gap 11.6 Glucose 98 74-106 mg/dL Blood Urea Nitrogen 13.0 7.0-18.0 mg/dL Creatinine 1.27 0.70-1.30 mg/dL Estimated GFR ( Anu >60 >=60 mL/min/1.73m 2 Estimated GFR (Non- Ally >60 >=60 mL/min/1.73m 2 BUN Creatinine Ratio 10.2 Calcium 9.3 8.5-10.1 mg/dL Performing Lab: see note ML - [facility] LB CBC AUTO DIFF Reviewed date:05/05/2024 08:32:06 PM Interpretation: Performing Lab: Notes/Report: [facility] , White Blood Count 6.7 4.0-11.0 10 3/uL Red Blood Count 4.35 4.70-6.10 10 6/uL Hemoglobin 13.8 14.0-18.0 g/dL Hematocrit 38.7 42.0-54.0 % Mean Corpuscular Volume 89.0 80.0-94.0 fL Mean Corpuscular Hemoglobin 31.7 25.9-34.0 pg Mean Corpuscular HGB Conc 35.7 29.9-35.2 g/dL Red Cell Distribution Width 12.5 11.0-15.0 % Platelet Count 220 150-450 10 3/uL Mean Platelet Volume 9.9 9.5-13.5 fL Neutrophils Percent Auto 59.0 43.0-75.0 % Lymphocytes Percent Auto 29.7 20.5-60.0 % Monocytes Percent Auto 9.6 1.7-12.0 % Eosinophils Percent Auto 1.0 0.9-7.0 % Basophils Percent Auto 0.6 0.2-2.0 % Immature Granulocytes Pct Auto 0.1 0.0-0.5 % Neutrophils Absolute Auto 4.0 1.4-6.5 10 3/uL Lymphocytes Absolute Auto 2.0 1.2-3.8 10 3/uL Monocytes Absolute Auto 0.6 0.3-0.8 10 3/uL Eosinophils Absolute Auto 0.1 0.0-0.7 10 3/uL Basophils Absolute Auto 0.0 0.0-0.1 10 3/uL Immature Granulocytes Abs Auto 0.01 0.00-0.03 10 3/uL Performing Lab: see note ML - [facility] LB PROF 14(COMP METB) Reviewed date:04/29/2024 08:37:25 PM Interpretation: Performing Lab: Notes/Report: [facility] , Sodium 141 136-145 mmol/L Potassium 4.4 3.5-5.1 mmol/L Chloride 104 98-107 mmol/L Carbon Dioxide 30.1 21.0-32.0 mmol/L Anion Gap 11.3 Glucose 82 74-106 mg/dL Blood Urea Nitrogen 18.0 7.0-18.0 mg/dL Creatinine 1.24 0.70-1.30 mg/dL Estimated GFR ( Anu >60 >=60 mL/min/1.73m 2 Estimated GFR (Non- Ally >60 >=60 mL/min/1.73m 2 BUN Creatinine Ratio 14.5 Calcium 9.2 8.5-10.1 mg/dL Bilirubin Total 0.4 0.2-1.0 mg/dL Aspartate Amino Transferase 18 15-37 U/L Alanine Aminotransferase 33 16-63 U/L Alkaline Phosphatase 64 46-116 U/L Total Protein 7.0 6.4-8.2 g/dL Albumin Level 3.9 3.4-5.0 g/dL Globulin 3.1 Albumin Globulin Ratio 1.3 Performing Lab: see note ML - [facility] LB FERRITIN Reviewed date:04/29/2024 08:37:25 PM Interpretation: Performing Lab: Notes/Report: [facility] , Ferritin 178.0 26.0-388.0 ng/mL Performing Lab: see note ML - [facility] LB IRON Reviewed date:04/25/2024 07:59:21 PM Interpretation: Performing Lab: Notes/Report: [facility] , Iron 70.0 65.0-175.0 ug/dL Performing Lab: see note ML - [facility] LB FERRITIN Reviewed date:04/25/2024 07:59:21 PM Interpretation: Performing Lab: Notes/Report: [facility] , Ferritin 171.0 26.0-388.0 ng/mL Performing Lab: see note ML - [facility] LB CBC AUTO DIFF Reviewed date:04/25/2024 07:59:21 PM Interpretation: Performing Lab: Notes/Report: [facility] , White Blood Count 5.3 4.0-11.0 10 3/uL Red Blood Count 4.57 4.70-6.10 10 6/uL Hemoglobin 14.1 14.0-18.0 g/dL Hematocrit 41.7 42.0-54.0 % Mean Corpuscular Volume 91.2 80.0-94.0 fL Mean Corpuscular Hemoglobin 30.9 25.9-34.0 pg Mean Corpuscular HGB Conc 33.8 29.9-35.2 g/dL Red Cell Distribution Width 13.1 11.0-15.0 % Platelet Count 226 150-450 10 3/uL Mean Platelet Volume 9.6 9.5-13.5 fL Neutrophils Percent Auto 60.2 43.0-75.0 % Lymphocytes Percent Auto 28.4 20.5-60.0 % Monocytes Percent Auto 7.2 1.7-12.0 % Eosinophils Percent Auto 3.2 0.9-7.0 % Basophils Percent Auto 0.8 0.2-2.0 % Immature Granulocytes Pct Auto 0.2 0.0-0.5 % Neutrophils Absolute Auto 3.2 1.4-6.5 10 3/uL Lymphocytes Absolute Auto 1.5 1.2-3.8 10 3/uL Monocytes Absolute Auto 0.4 0.3-0.8 10 3/uL Eosinophils Absolute Auto 0.2 0.0-0.7 10 3/uL Basophils Absolute Auto 0.0 0.0-0.1 10 3/uL Immature Granulocytes Abs Auto 0.01 0.00-0.03 10 3/uL Performing Lab: see note - [facility] LB PROF 14(COMP METB) Reviewed date:04/17/2024 04:09:53 PM Interpretation: Performing Lab: Notes/Report: [facility] , Sodium 140 136-145 mmol/L Potassium 3.8 3.5-5.1 mmol/L Chloride 105 98-107 mmol/L Carbon Dioxide 25.0 21.0-32.0 mmol/L Anion Gap 13.8 Glucose 90 74-106 mg/dL Blood Urea Nitrogen 16.0 7.0-18.0 mg/dL Creatinine 1.28 0.70-1.30 mg/dL Estimated GFR ( Anu >60 >=60 mL/min/1.73m 2 Estimated GFR (Non- Ally >60 >=60 mL/min/1.73m 2 BUN Creatinine Ratio 12.5 Calcium 9.0 8.5-10.1 mg/dL Bilirubin Total 0.6 0.2-1.0 mg/dL Aspartate Amino Transferase 16 15-37 U/L Alanine Aminotransferase 24 16-63 U/L Alkaline Phosphatase 51 46-116 U/L Total Protein 7.3 6.4-8.2 g/dL Albumin Level 4.1 3.4-5.0 g/dL Globulin 3.2 Albumin Globulin Ratio 1.3 Performing Lab: see note ML - [facility] IRON Reviewed date:04/17/2024 04:09:53 PM Interpretation: Performing Lab: Notes/Report: [facility] , Iron 96.0 65.0-175.0 ug/dL Performing Lab: see note - [facility] FERRITIN Reviewed date:04/17/2024 04:09:53 PM Interpretation: Performing Lab: Notes/Report: [facility] , Ferritin 200.0 26.0-388.0 ng/mL Performing Lab: see note ML - [facility] LB CBC AUTO DIFF Reviewed date:04/17/2024 04:09:53 PM Interpretation: Performing Lab: Notes/Report: [facility] , White Blood Count 7.3 4.0-11.0 10 3/uL Red Blood Count 4.60 4.70-6.10 10 6/uL Hemoglobin 14.3 14.0-18.0 g/dL Hematocrit 42.7 42.0-54.0 % Mean Corpuscular Volume 92.8 80.0-94.0 fL Mean Corpuscular Hemoglobin 31.1 25.9-34.0 pg Mean Corpuscular HGB Conc 33.5 29.9-35.2 g/dL Red Cell Distribution Width 13.5 11.0-15.0 % Platelet Count 249 150-450 10 3/uL Mean Platelet Volume 9.5 9.5-13.5 fL Neutrophils Percent Auto 64.9 43.0-75.0 % Lymphocytes Percent Auto 26.5 20.5-60.0 % Monocytes Percent Auto 6.0 1.7-12.0 % Eosinophils Percent Auto 1.6 0.9-7.0 % Basophils Percent Auto 0.7 0.2-2.0 % Immature Granulocytes Pct Auto 0.3 0.0-0.5 % Neutrophils Absolute Auto 4.8 1.4-6.5 10 3/uL Lymphocytes Absolute Auto 1.9 1.2-3.8 10 3/uL Monocytes Absolute Auto 0.4 0.3-0.8 10 3/uL Eosinophils Absolute Auto 0.1 0.0-0.7 10 3/uL Basophils Absolute Auto 0.1 0.0-0.1 10 3/uL Immature Granulocytes Abs Auto 0.02 0.00-0.03 10 3/uL Performing Lab: see note ML - [facility] LB PROF 14(COMP METB) Reviewed date:04/14/2024 08:22:13 PM Interpretation: Performing Lab: Notes/Report: [facility] , Sodium 138 136-145 mmol/L Potassium 3.6 3.5-5.1 mmol/L Chloride 105 98-107 mmol/L Carbon Dioxide 23.8 21.0-32.0 mmol/L Anion Gap 12.8 Glucose 120 74-106 mg/dL Blood Urea Nitrogen 19.0 7.0-18.0 mg/dL Creatinine 1.43 0.70-1.30 mg/dL Estimated GFR ( Anu >60 >=60 mL/min/1.73m 2 Estimated GFR (Non- Ally 58 >=60 mL/min/1.73m 2 BUN Creatinine Ratio 13.3 Calcium 8.9 8.5-10.1 mg/dL Bilirubin Total 0.6 0.2-1.0 mg/dL Aspartate Amino Transferase 9 15-37 U/L Alanine Aminotransferase 27 16-63 U/L Alkaline Phosphatase 77 46-116 U/L Total Protein 7.5 6.4-8.2 g/dL Albumin Level 4.1 3.4-5.0 g/dL Globulin 3.4 Albumin Globulin Ratio 1.2 Performing Lab: see note ML - [facility] LB CBC AUTO DIFF Reviewed date:04/14/2024 08:22:13 PM Interpretation: Performing Lab: Notes/Report: [facility] , White Blood Count 6.2 4.0-11.0 10 3/uL Red Blood Count 4.62 4.70-6.10 10 6/uL Hemoglobin 14.5 14.0-18.0 g/dL Hematocrit 42.4 42.0-54.0 % Mean Corpuscular Volume 91.8 80.0-94.0 fL Mean Corpuscular Hemoglobin 31.4 25.9-34.0 pg Mean Corpuscular HGB Conc 34.2 29.9-35.2 g/dL Red Cell Distribution Width 13.6 11.0-15.0 % Platelet Count 250 150-450 10 3/uL Mean Platelet Volume 9.3 9.5-13.5 fL Neutrophils Percent Auto 52.1 43.0-75.0 % Lymphocytes Percent Auto 36.6 20.5-60.0 % Monocytes Percent Auto 7.6 1.7-12.0 % Eosinophils Percent Auto 2.9 0.9-7.0 % Basophils Percent Auto 0.6 0.2-2.0 % Immature Granulocytes Pct Auto 0.2 0.0-0.5 % Neutrophils Absolute Auto 3.2 1.4-6.5 10 3/uL Lymphocytes Absolute Auto 2.3 1.2-3.8 10 3/uL Monocytes Absolute Auto 0.5 0.3-0.8 10 3/uL Eosinophils Absolute Auto 0.2 0.0-0.7 10 3/uL Basophils Absolute Auto 0.0 0.0-0.1 10 3/uL Immature Granulocytes Abs Auto 0.01 0.00-0.03 10 3/uL Performing Lab: see note ML - [facility] LB ECG 12 lead Reviewed date:04/11/2024 06:46:41 PM Interpretation: Performing Lab: Notes/Report: Source Facility: [facility] [place] [address] [place] [address] Electrocardiograph Report Signed Patient: OLEGARIO DONALD MR#: [id number] : 1990 Acct:[id number] Age/Sex: 33 / M ADM Date: 04/10/24 Loc: ER Attending Dr: Ordering Physician: Manuelito Leone M.D. Date of Service: 04/10/24 Procedure(s): ECG 12 lead Accession Number(s): [id number] cc: [facility] Test Date: 2024-04-10 Pat Name: OLEGARIO DONALD Department: Room: - Gender: Male Fiscal Services Manager: : 1990 Requested By: [id number] Order Number: [id number] Reading MD: LATRICIA GUZMAN Measurements Intervals [place] Rate: 71 P: 54 UT: 138 QRS: 86 QRSD: 104 T: 28 QT: 382 QTc: 404 Interpretive Statements 1100 Sinus rhythm 9110 normal ECG Compared to ECG 04/01/2024 23:42:23 No significant changes Electronically Signed On 04-11-2024 8:03:14 EST by LATRICIA GUZMAN Dictated By: Latricia Guzman M.D. Signed By: 04/11/24 0803 DD/ 0042 TD/TT: Family Mediator: [place] [address] Electrocardiograph Report Signed Patient: GIOVANY DONALD MR#: [id number] : 1990 Acct:[id number] Age/Sex: 33 / M ADM Date: 04/10/24 Loc: ER Attending Dr: Ordering Physician: Manuelito Leone M.D. Date of Service: 04/10/24 Procedure(s): ECG 12 lead Accession Number(s): [id number] cc: [facility] Test Date: 2024-04-10 Pat Name: OLEGARIO GRACE Department: 22 Room: - Gender: Male Fiscal Services Manager: : 1990 Requ ested By: [id number] Order Number: [id number] Reading MD: LATRICIA GUZMAN Measurements Intervals [place] Rate: 71 P: 54 UT: 138 QRS: 86 QRSD: 104 T: 28 QT: 382 QTc: 404 Interpretive Statements 1100 Sinus rhythm 9110 normal ECG Compared to ECG 04/01/2024 23:42:23 No significant changes Electronically Amara d On 04-11-2024 8:03:14 EST by LATRICIA GUZMAN Dictated By: Selena Guzman M.D. Signed By: 04/11/24 0803 DD/ 0042 TD/TT: Family Mediator: Ethanol Reviewed date:04/10/2024 07:56:41 PM Interpretation: Performing Lab: Notes/Report: [facility] , Ethanol <3 NOTE: 80 mg/dl is the legal limit for a blood alcohol level Performing Lab: see note ML - [facility] LB Troponin I High Sensitivity Reviewed date:04/10/2024 07:56:41 PM Interpretation: Performing Lab: Notes/Report: [facility] , Troponin I High Sensitivity 4.1 4.0-76.1 pg/mL CUT-OFF POINTS HAVE BEEN ESTABLISHED BASED ON THE FOURTH UNIVERSAL DEFINITION OF MYOCARDIAL INFARCTION. THE UPPER REFERENCE LIMIT (URL) OF TROPONIN, DEFINED THE 99TH PERCENTILE OF cTnI DISTRIBUTION IN A REFERENCE POPULATION, HAS BEEN CONFIRMED THE DECISION THRESHOLD FOR DE DIAGNOSIS. 99TH PERCENTILE = 76.2 PG/ML NOTE: HIGH-SENSITIVITY TROPONIN ASSAY IS NOT INTENDED TO BE USED IN ISOLATION BUT SHOULD BE INTERPRETED IN CONJUNCTION WITH OTHER DIAGNOSTIC AND CLINICAL INFORMATION. Performing Lab: see note ML - [facility] LB PROF 14(COMP METB) Reviewed date:04/10/2024 07:56:41 PM Interpretation: Performing Lab: Notes/Report: [facility] , Sodium 139 136-145 mmol/L Potassium 3.5 3.5-5.1 mmol/L Chloride 105 98-107 mmol/L Carbon Dioxide 24.4 21.0-32.0 mmol/L Anion Gap 13.1 Glucose 114 74-106 mg/dL Blood Urea Nitrogen 17.0 7.0-18.0 mg/dL Creatinine 1.44 0.70-1.30 mg/dL Estimated GFR ( Aun >60 >=60 mL/min/1.73m 2 Estimated GFR (Non- Ally 57 >=60 mL/min/1.73m 2 BUN Creatinine Ratio 11.8 Calcium 9.2 8.5-10.1 mg/dL Bilirubin Total 0.4 0.2-1.0 mg/dL Aspartate Amino Transferase 7 15-37 U/L Alanine Aminotransferase 22 16-63 U/L Alkaline Phosphatase 69 46-116 U/L Total Protein 7.4 6.4-8.2 g/dL Albumin Level 4.1 3.4-5.0 g/dL Globulin 3.3 Albumin Globulin Ratio 1.2 Performing Lab: see note ML - [facility] LB DRUG SCREEN RAPID (URINE) Reviewed date:04/10/2024 07:56:41 PM Interpretation: Performing Lab: Notes/Report: [facility] , Cannabinoid Screen Urine POSITIVE NEGATIVE Phencyclidine Screen Urine NEGATIVE NEGATIVE Cocaine Screen Urine NEGATIVE NEGATIVE Methamphetamines Screen Urine NEGATIVE NEGATIVE Opiate Screen Urine POSITIVE NEGATIVE Amphetamine Screen Urine NEGATIVE NEGATIVE Benzodiazepines Screen Urine NEGATIVE NEGATIVE Tricyclic Antidepressant Urine NEGATIVE NEGATIVE Methadone Screen Urine NEGATIVE NEGATIVE Barbiturates Screen Urine NEGATIVE NEGATIVE Oxycodone Screen Urine NEGATIVE NEGATIVE Buprenorphine Screen Urine NEGATIVE NEGATIVE DRUG CLASS TEST SYSTEM CUT-OFF CONCENTRATIONS ARE FOLLOWS: AMP (Amphetamine): 500 ng/mL BAR (Barbiturates): 200 ng/mL BZO (Benzodiazepines): 150 ng/mL BUP (Buprenorphine): 10 ng/mL EMELY (Cocaine): 150 ng/mL mAMP (Methamphetamine): 500 ng/mL MTD (Methadone): 200 ng/mL OPI (Opiates): 100 ng/mL OXY (Oxycodone): 100 ng/mL PCP (Phencyclidine): 25 ng/mL THC (Cannabinoids): 50 ng/mL TCA (Trycyclic Antidepressants): 300 ng/mL Performing Lab: see note ML - [facility] LB CBC AUTO DIFF Reviewed date:04/10/2024 07:56:41 PM Interpretation: Performing Lab: Notes/Report: [facility] , White Blood Count 8.8 4.0-11.0 10 3/uL Red Blood Count 4.42 4.70-6.10 10 6/uL Hemoglobin 13.8 14.0-18.0 g/dL Hematocrit 40.4 42.0-54.0 % Mean Corpuscular Volume 91.4 80.0-94.0 fL Mean Corpuscular Hemoglobin 31.2 25.9-34.0 pg Mean Corpuscular HGB Conc 34.2 29.9-35.2 g/dL Red Cell Distribution Width 13.7 11.0-15.0 % Platelet Count 274 150-450 10 3/uL Mean Platelet Volume 9.3 9.5-13.5 fL Neutrophils Percent Auto 56.9 43.0-75.0 % Lymphocytes Percent Auto 34.8 20.5-60.0 % Monocytes Percent Auto 6.3 1.7-12.0 % Eosinophils Percent Auto 1.1 0.9-7.0 % Basophils Percent Auto 0.3 0.2-2.0 % Immature Granulocytes Pct Auto 0.6 0.0-0.5 % Neutrophils Absolute Auto 5.0 1.4-6.5 10 3/uL Lymphocytes Absolute Auto 3.1 1.2-3.8 10 3/uL Monocytes Absolute Auto 0.6 0.3-0.8 10 3/uL Eosinophils Absolute Auto 0.1 0.0-0.7 10 3/uL Basophils Absolute Auto 0.0 0.0-0.1 10 3/uL Immature Granulocytes Abs Auto 0.05 0.00-0.03 10 3/uL Performing Lab: see note ML - [facility] LB Occult Blood* Reviewed date:04/09/2024 08:38:06 PM Interpretation: Performing Lab: Notes/Report: [facility] , Occult Blood Negative Performing Lab: see note - [facility] LB PROF 14(COMP METB) Reviewed date:04/08/2024 12:45:31 PM Interpretation: Performing Lab: Notes/Report: [facility] , Sodium 138 136-145 mmol/L Potassium 3.9 3.5-5.1 mmol/L Chloride 105 98-107 mmol/L Carbon Dioxide 23.6 21.0-32.0 mmol/L Anion Gap 13.3 Glucose 103 74-106 mg/dL Blood Urea Nitrogen 15.0 7.0-18.0 mg/dL Creatinine 1.30 0.70-1.30 mg/dL Estimated GFR ( Anu >60 >=60 mL/min/1.73m 2 Estimated GFR (Non- Ally >60 >=60 mL/min/1.73m 2 BUN Creatinine Ratio 11.5 Calcium 9.0 8.5-10.1 mg/dL Bilirubin Total 0.4 0.2-1.0 mg/dL Aspartate Amino Transferase 11 15-37 U/L Alanine Aminotransferase 26 16-63 U/L Alkaline Phosphatase 58 46-116 U/L Total Protein 7.3 6.4-8.2 g/dL Albumin Level 4.1 3.4-5.0 g/dL Globulin 3.2 Albumin Globulin Ratio 1.3 Performing Lab: see note ML - [facility] LB IRON Reviewed date:04/08/2024 12:46:08 PM Interpretation: Performing Lab: Notes/Report: [facility] , Iron 84.0 65.0-175.0 ug/dL Performing Lab: see note ML - [facility] LB FERRITIN Reviewed date:04/08/2024 08:20:11 PM Interpretation: Performing Lab: Notes/Report: [facility] , Ferritin 165.0 26.0-388.0 ng/mL Performing Lab: see note ML - [facility] LB CBC AUTO DIFF Reviewed date:04/08/2024 12:45:31 PM Interpretation: Performing Lab: Notes/Report: [facility] , White Blood Count 8.4 4.0-11.0 10 3/uL Red Blood Count 4.48 4.70-6.10 10 6/uL Hemoglobin 13.8 14.0-18.0 g/dL Hematocrit 40.8 42.0-54.0 % Mean Corpuscular Volume 91.1 80.0-94.0 fL Mean Corpuscular Hemoglobin 30.8 25.9-34.0 pg Mean Corpuscular HGB Conc 33.8 29.9-35.2 g/dL Red Cell Distribution Width 13.5 11.0-15.0 % Platelet Count 245 150-450 10 3/uL Mean Platelet Volume 9.5 9.5-13.5 fL Neutrophils Percent Auto 78.4 43.0-75.0 % Lymphocytes Percent Auto 16.4 20.5-60.0 % Monocytes Percent Auto 3.8 1.7-12.0 % Eosinophils Percent Auto 0.5 0.9-7.0 % Basophils Percent Auto 0.5 0.2-2.0 % Immature Granulocytes Pct Auto 0.4 0.0-0.5 % Neutrophils Absolute Auto 6.6 1.4-6.5 10 3/uL Lymphocytes Absolute Auto 1.4 1.2-3.8 10 3/uL Monocytes Absolute Auto 0.3 0.3-0.8 10 3/uL Eosinophils Absolute Auto 0.0 0.0-0.7 10 3/uL Basophils Absolute Auto 0.0 0.0-0.1 10 3/uL Immature Granulocytes Abs Auto 0.03 0.00-0.03 10 3/uL Performing Lab: see note - [facility] LB PROF CHEM 8 (BAS METB) Reviewed date:04/02/2024 08:53:16 PM Interpretation: Performing Lab: Notes/Report: [facility] , Sodium 138 136-145 mmol/L Potassium 4.2 3.5-5.1 mmol/L Chloride 104 98-107 mmol/L Carbon Dioxide 23.3 21.0-32.0 mmol/L Anion Gap 14.9 Glucose 235 74-106 mg/dL Blood Urea Nitrogen 17.0 7.0-18.0 mg/dL Creatinine 1.45 0.70-1.30 mg/dL Estimated GFR ( Anu >60 >=60 mL/min/1.73m 2 Estimated GFR (Non- Ally 57 >=60 mL/min/1.73m 2 BUN Creatinine Ratio 11.7 Calcium 9.3 8.5-10.1 mg/dL Performing Lab: see note ML - [facility] LB MAGNESIUM Reviewed date:04/02/2024 08:53:16 PM Interpretation: Performing Lab: Notes/Report: [facility] , Magnesium 2.0 1.8-2.4 mg/dL Performing Lab: see note [facility] LB LACTATE or LACTIC ACID Reviewed date:04/02/2024 08:53:16 PM Interpretation: Performing Lab: Notes/Report: [facility] , Lactate/Lactic Acid 1.9 0.4-2.0 mmol/L Performing Lab: see note ML - [facility] LB ECG 12 lead Reviewed date:04/02/2024 08:53:16 PM Interpretation: Performing Lab: Notes/Report: Source Facility: [facility] [place] [address] [place] [address] Electrocardiograph Report Signed Patient: OLEGARIO DONALD MR#: [id number] : 1990 Acct:[id number] Age/Sex: 33 / M ADM Date: 04/01/24 Loc: ER Attending Dr: Ordering Physician: Alvin Penaloza M.D. 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 Services Manager: : 1990 Requested By: LATRICIA GUZMAN Order Number: [id number] Reading MD: LATRICIA GUZMAN Measurements Intervals [place] Rate: 97 P: 90 UT: 128 QRS: 78 QRSD: 100 T: 16 QT: 362 QTc: 416 Interpretive Statements 1100 Sinus rhythm 2420 RSR (QR) in lead V1/V2, consistent with right ventricular conduction delay 4068 Nonspecific Twave abnormality poor baseline but different than previous in inferior leads 9130 borderline ECG Compared to ECG 03/07/2024 10:01:52 Sinus arrhythmia no longer present Electronically Signed On 04-02-2024 6:38:40 EST by LATRICIA GUZMAN Dictated By: Latricia Guzman M.D. Signed By: 04/02/24 0639 DD/ 2342 TD/TT: Family Mediator: [place] [address] Electrocardiograph Report Signed Patient: GIOVANY DONALD MR#: [id number] : 1990 Acct:[id number] Age/Sex: 33 / M ADM Date: 04/01/24 Loc: ER Attending Dr: Ordering Physician: Alvin Penaloza M.D. Date of Service: 04/01/24 Procedure(s): ECG 12 lead Accession Number(s): [id number] cc: [facility] Test Date: 2024-04-01 Pat Name: OLEGARIO GRACE Department: 22 Room: - Gender: Male [employer] Manager: : 1990 Keila jiménez By: LATRICIA GUZMAN Order Number: [id number] Reading MD: LATRICIA GUZMAN Measurements Intervals [place] Rate: 97 P: 90 UT: 128 QRS: 78 QRSD: 100 T: 16 QT: 362 QTc: 416 Interpretive Statements 1100 Sinus rhythm 2420 RSR (QR) in susanna d V1/V2, consistent with right ventricular conduction delay 4068 Nonspecific Twa ve abnormality poor baseline but different than previous in inferior leads 9130 borderline ECG Compared to ECG 03/07/2024 10:01:52 Sinus arrhythmia no longer present Electronically Amara d On 04-02-2024 6:38:40 EST by LATRICIA GUZMAN Dictated By: Selena Guzman M.D. Signed By: 04/02/24 0639 DD/ 2342 TD/TT: Family Mediator: PROF Sofia(COMP METB) Reviewed date:04/01/2024 01:47:50 PM Interpretation: Performing Lab: Notes/Report: [facility] , Sodium 141 136-145 mmol/L Potassium 4.1 3.5-5.1 mmol/L Chloride 105 98-107 mmol/L Carbon Dioxide 25.8 21.0-32.0 mmol/L Anion Gap 14.3 Glucose 94 74-106 mg/dL Blood Urea Nitrogen 13.0 7.0-18.0 mg/dL Creatinine 1.30 0.70-1.30 mg/dL Estimated GFR ( Anu >60 >=60 mL/min/1.73m 2 Estimated GFR (Non- Ally >60 >=60 mL/min/1.73m 2 BUN Creatinine Ratio 10.0 Calcium 9.8 8.5-10.1 mg/dL Bilirubin Total 0.4 0.2-1.0 mg/dL Aspartate Amino Transferase 13 15-37 U/L Alanine Aminotransferase 28 16-63 U/L Alkaline Phosphatase 68 46-116 U/L Total Protein 7.4 6.4-8.2 g/dL Albumin Level 3.9 3.4-5.0 g/dL Globulin 3.5 Albumin Globulin Ratio 1.1 Performing Lab: see note ML - [facility] LB IRON Reviewed date:04/01/2024 01:47:50 PM Interpretation: Performing Lab: Notes/Report: [facility] , Iron 85.0 65.0-175.0 ug/dL Performing Lab: see note ML - [facility] LB FERRITIN Reviewed date:04/01/2024 01:47:50 PM Interpretation: Performing Lab: Notes/Report: [facility] , Ferritin 200.0 26.0-388.0 ng/mL Performing Lab: see note ML - [facility] LB CBC AUTO DIFF Reviewed date:04/01/2024 01:47:50 PM Interpretation: Performing Lab: Notes/Report: [facility] , White Blood Count 5.4 4.0-11.0 10 3/uL Red Blood Count 4.49 4.70-6.10 10 6/uL Hemoglobin 13.8 14.0-18.0 g/dL Hematocrit 41.1 42.0-54.0 % Mean Corpuscular Volume 91.5 80.0-94.0 fL Mean Corpuscular Hemoglobin 30.7 25.9-34.0 pg Mean Corpuscular HGB Conc 33.6 29.9-35.2 g/dL Red Cell Distribution Width 13.5 11.0-15.0 % Platelet Count 183 150-450 10 3/uL Mean Platelet Volume 9.8 9.5-13.5 fL Neutrophils Percent Auto 60.4 43.0-75.0 % Lymphocytes Percent Auto 28.7 20.5-60.0 % Monocytes Percent Auto 6.8 1.7-12.0 % Eosinophils Percent Auto 3.0 0.9-7.0 % Basophils Percent Auto 0.7 0.2-2.0 % Immature Granulocytes Pct Auto 0.4 0.0-0.5 % Neutrophils Absolute Auto 3.3 1.4-6.5 10 3/uL Lymphocytes Absolute Auto 1.6 1.2-3.8 10 3/uL Monocytes Absolute Auto 0.4 0.3-0.8 10 3/uL Eosinophils Absolute Auto 0.2 0.0-0.7 10 3/uL Basophils Absolute Auto 0.0 0.0-0.1 10 3/uL Immature Granulocytes Abs Auto 0.02 0.00-0.03 10 3/uL Performing Lab: see note ML - [facility] LB PROF 14(COMP METB) Reviewed date:03/25/2024 02:32:52 PM Interpretation: Performing Lab: Notes/Report: [facility] , Sodium 141 136-145 mmol/L Potassium 4.3 3.5-5.1 mmol/L Chloride 103 98-107 mmol/L Carbon Dioxide 28.5 21.0-32.0 mmol/L Anion Gap 13.8 Glucose 96 74-106 mg/dL Blood Urea Nitrogen 12.0 7.0-18.0 mg/dL Creatinine 1.27 0.70-1.30 mg/dL Estimated GFR ( Anu >60 >=60 mL/min/1.73m 2 Estimated GFR (Non- Ally >60 >=60 mL/min/1.73m 2 BUN Creatinine Ratio 9.4 Calcium 9.6 8.5-10.1 mg/dL Bilirubin Total 0.5 0.2-1.0 mg/dL Aspartate Amino Transferase 11 15-37 U/L Alanine Aminotransferase 26 16-63 U/L Alkaline Phosphatase 69 46-116 U/L Total Protein 7.4 6.4-8.2 g/dL Albumin Level 3.9 3.4-5.0 g/dL Globulin 3.5 Albumin Globulin Ratio 1.1 Performing Lab: see note ML - [facility] IRON Reviewed date:03/25/2024 02:32:52 PM Interpretation: Performing Lab: Notes/Report: [facility] , Iron 88.0 65.0-175.0 ug/dL Performing Lab: see note ML - [facility] LB FERRITIN Reviewed date:03/25/2024 02:32:52 PM Interpretation: Performing Lab: Notes/Report: [facility] , Ferritin 319.0 26.0-388.0 ng/mL Performing Lab: see note - [facility] CBC AUTO DIFF Reviewed date:03/25/2024 02:32:52 PM Interpretation: Performing Lab: Notes/Report: [facility] , White Blood Count 4.8 4.0-11.0 10 3/uL Red Blood Count 4.42 4.70-6.10 10 6/uL Hemoglobin 13.7 14.0-18.0 g/dL Hematocrit 40.5 42.0-54.0 % Mean Corpuscular Volume 91.6 80.0-94.0 fL Mean Corpuscular Hemoglobin 31.0 25.9-34.0 pg Mean Corpuscular HGB Conc 33.8 29.9-35.2 g/dL Red Cell Distribution Width 13.2 11.0-15.0 % Platelet Count 187 150-450 10 3/uL Mean Platelet Volume 9.4 9.5-13.5 fL Neutrophils Percent Auto 61.0 43.0-75.0 % Lymphocytes Percent Auto 27.8 20.5-60.0 % Monocytes Percent Auto 6.5 1.7-12.0 % Eosinophils Percent Auto 3.4 0.9-7.0 % Basophils Percent Auto 1.1 0.2-2.0 % Immature Granulocytes Pct Auto 0.2 0.0-0.5 % Neutrophils Absolute Auto 2.9 1.4-6.5 10 3/uL Lymphocytes Absolute Auto 1.3 1.2-3.8 10 3/uL Monocytes Absolute Auto 0.3 0.3-0.8 10 3/uL Eosinophils Absolute Auto 0.2 0.0-0.7 10 3/uL Basophils Absolute Auto 0.1 0.0-0.1 10 3/uL Immature Granulocytes Abs Auto 0.01 0.00-0.03 10 3/uL Performing Lab: see note ML - [facility] US renal bladder Reviewed date:03/23/2024 10:18:41 AM Interpretation: Performing Lab: Notes/Report: Source Facility: [place] [address] [place] [address] Ultrasound Report Signed Patient: OLEGARIO DONALD MR#: [id number] : 1990 Acct:[id number] Age/Sex: 33 / M ADM Date: 03/21/24 Loc: US Attending Dr: Latricia Guzman M.D. Ordering Physician: Latricia Guzman M.D. Date of Service: 03/21/24 Procedure(s): US renal bladder Accession Number(s): [id number] cc: Latricia Guzman M.D. [address] [address] Patient Name: OLEGARIO DONALD MRN: [id number] date: 1990 Sex: M Assigned Patient Location: US Current Patient Location: Accession/Order Number: [id number] Exam Date: 03/21/2024 07:28 Report Date: 03/22/2024 05:57 At the request of: LATRICIA GUZMAN Procedure: US renal bladder EXAMINATION: US renal bladder HISTORY: Abnormal renal function COMPARISON: CT abdomen pelvis 02/25/2024 TECHNIQUE: Ultrasound examination was performed of the kidneys and urinary bladder. FINDINGS: RIGHT KIDNEY: Nonobstructing 4 mm stone within inferior pole. No appreciable mass, hydronephrosis, or significant cortical thinning. Normal parenchymal echogenicity. Color Doppler demonstrates blood flow within the kidney. Kidney: 9.1 x 4.8 x 4.8 cm per LEFT KIDNEY: Nonobstructing 5 mm stone within inferior pole. No appreciable mass, hydronephrosis, or significant cortical thinning. Normal parenchymal echogenicity. Color Doppler demonstrates blood flow within the kidney. Kidney: 11.4 x 6.0 x 5.7 cm BLADDER: No visible wall thickening, mass, or calculi. Post void residual: 0 mL URETERAL JETS: Visualized bilaterally. US/US renal bladder IMPRESSION: 1. Bilateral nonobstructing nephrolithiasis. Otherwise unremarkable kidneys and urinary bladder. Electronically authenticated by: SILVER TARIQ Date: 03/22/2024 05:57 Dictated By: Silver Tariq M.D. Signed By: 03/22/24 0600 DD/ 0557 TD/TT: Family Mediator: The [address] [address] Ultrasound Report Signed Patient: GIOVANY DONALD MR#: [id number] : 1990 Acct:[id number] Age/Sex: 33 / M ADM Date: 03/21/24 Loc: US Attending Dr: Adan Guzman M.D. Ordering Physician: Latricia Guzman M.D. Date of Service: 03/21/24 Procedure(s): US emiliano al bladder Accession Number(s): [id number] cc: Latricia Guzman M.D. [place] [address] Patient Name: OLEGARIO DONALD MRN: [id number] date: 1990 Sex: M Assigned Patient Location: Current Patient Location: Accession/Order Numb er: [id number] Exam Date: 07:28 Report Date: 03/22/2024 05:57 At the request of: LATRICIA GUZMAN Procedure: US renal bladder EXAMINATION: US omari l bladder HISTORY: Abnormal re nal function COMPARISON: CT abdom en pelvis 02/25/2024 TECHNIQUE: Ultrasoun d examination was performed of the kidneys and urinary bladder. FINDINGS: RIGHT KIDNEY: Nonobstructing 4 mm stone within inferior pole. No appreciable mass, hydronephrosis , or significant cortical thinning. Normal parenchymal echogenicity. Color Doppler demonstrates blood flow within the kidney. Kidney: 9.1 x 4.8 x 4.8 cm per LEFT KIDNEY: Nonobstructing 5 mm stone within inferior pole. No appreciable mass, hydronephrosis , or significant cortical thinning. Normal parenchymal echogenicity. Color Doppler demonstrates blood flow within the kidney. Kidney: 11.4 x 6.0 x 5.7 cm BLADDER: No visible wall thickening, mass, or calculi. Post void residual: 0 mL URETERAL JETS: Visua lized bilaterally. U S/US renal bladder IMPRESSION: 1. Bilateral nonobstructing nephrolithiasis. Otherwise unremarkable kidneys and urinary bladder. Electronically authenticated by: SILVER TARIQ Date: 03/22/2024 05:57 Dictated By: Silver Tariq M.D. Signed By: 03/22/24 0600 DD/ 0557 TD/TT: Family Mediator: MR head/brain wo/w con Reviewed date:03/20/2024 08:35:02 PM Interpretation: Performing Lab: Notes/Report: Source Facility: [place] [address] [place] [address] Magnetic Resonance Report Signed Patient: OLEGARIO DONALD MR#: [id number] : 1990 Acct:[id number] Age/Sex: 33 / M ADM Date: 03/20/24 Loc: MRI Attending Dr: Latricia Guzman M.D. Ordering Physician: Latricia Guzman M.D. Date of Service: 03/20/24 Procedure(s): MR head/brain wo/w con Accession Number(s): [id number] cc: Latricia Guzman M.D. [place] [address] Patient Name: OLEGARIO DONALD MRN: [id number] date: 1990 Sex: M Assigned Patient Location: MRI Current Patient Location: MRI Accession/Order Number: [id number] Exam Date: 03/20/2024 12:45 Report Date: 03/20/2024 15:57 At the request of: LATRICIA GUZMAN Procedure: MR head/brain wo/w con EXAM: MR head/brain wo/w con HISTORY: memory loss R41.3 Tremor of right hand R25.1 seizure one month ago. COMPARISON: CT brain 02/25/2024. TECHNIQUE: Multisequence MRI brain was performed with and without intravenous contrast. FINDINGS: There is no restricted diffusion to suggest acute infarct. There is no midline shift, mass effect, or abnormal extraaxial fluid collections. There are no abnormal parenchymal or leptomeningeal enhancement. The cortical sulci and ventricular system are within normal limits. The major intracranial flow voids are visualized. The cerebellar tonsils are normal in position. The orbits demonstrate no suspicious enhancement or any focal lesions. The paranasal sinuses show no air-fluid level. There are couple of small cystic lesions in the left side of the nasopharynx and fluid within the left Rosenmuller fossa, suggestive of mucous retention cysts. The mastoid air cells are grossly clear. The calvarium and extracranial soft tissues are unremarkable. MR/MR head/brain wo/w con IMPRESSION: No acute intracranial abnormality or abnormal intracranial enhancement. No potential seizure focus identified. Electronically authenticated by: YONATAN MCCLELLAND Date: 03/20/2024 15:57 Dictated By: YONATAN MCCLELLAND M.D. Signed By: 03/20/24 1559 DD/ 1557 TD/TT: Family Mediator: The [address] [address] Magnetic Resonance Report Signed Patient: GIOVANY DONALD MR#: [id number] : 1990 Acct:[id number] Age/Sex: 33 / M ADM Date: 03/20/24 Loc: MRI Attending Dr: Adan Guzman M.D. Ordering Physician: Latricia Guzman M.D. Date of Service: 03/20/24 Procedure(s): MR head/brain wo/w con Accession Number(s): [id number] cc: Latricia Guzman M.D. [place] [id number] Patient Name: OLEGARIO DONALD MRN: [id number] date: 1990 Sex: M Assigned Patient Location: MRI Current Patient Loca tion: MRI Accession/Order Numb er: [id number] Exam Date: 12:45 Report Date: 03/20/2024 15:57 At the request of: LATRICIA GUZMAN Procedure: MR head/b rain wo/w con EXAM: MR head/brain wo/w con HISTORY: memory loss R41.3 Tremor of right hand R25.1 seizure one month ago. COMPARISON: CT brain 02/25/2024. TECHNIQUE: Multisequ ence MRI brain was performed with and without intravenous contrast. FINDINGS: There is no restrict ed diffusion to suggest acute infarct. There is no midline shift, mass effect, or abnormal extraaxial fluid collections. There are no abnorma l parenchymal or leptomeningeal enhancement. The cortical sulci a nd ventricular system are within normal limits. The major intracrani al flow voids are visualized. The cerebellar tonsils are normal in position. The orbits demonstra te no suspicious enhancement or any focal lesions. The paranasal sinuses sh ow no air-fluid level. There are couple of small cystic lesions in the left side of the nasopharynx and fluid within the left Rosenmuller fossa, suggestive of mucous retention cysts. The mastoid air cell s are grossly clear. The calvarium and extracranial soft tissues are unremarkable. M R/MR head/brain wo/w con IMPRESSION: No acute intracrania l abnormality or abnormal intracranial enhancement. No potential seizure focus identified. Electronically authenticated by: YONATAN MCCLELLAND Date: 03/20/2024 15:57 Dictated By: CHI MCCLELLAND M.D. Signed By: 03/20/241558 DD/ 56 TD/TT: Family Mediator: PROF Sofia(COMP METB) Reviewed date:03/18/2024 01:04:34 PM Interpretation: Performing Lab: Notes/Report: [facility] , Sodium 139 136-145 mmol/L Potassium 4.3 3.5-5.1 mmol/L Chloride 104 98-107 mmol/L Carbon Dioxide 28.6 21.0-32.0 mmol/L Anion Gap 10.7 Glucose 93 74-106 mg/dL Blood Urea Nitrogen 16.0 7.0-18.0 mg/dL Creatinine 1.35 0.70-1.30 mg/dL Estimated GFR ( Anu >60 >=60 mL/min/1.73m 2 Estimated GFR (Non- Ally >60 >=60 mL/min/1.73m 2 BUN Creatinine Ratio 11.9 Calcium 9.3 8.5-10.1 mg/dL Bilirubin Total 0.5 0.2-1.0 mg/dL Aspartate Amino Transferase 19 15-37 U/L Alanine Aminotransferase 33 16-63 U/L Alkaline Phosphatase 81 46-116 U/L Total Protein 7.4 6.4-8.2 g/dL Albumin Level 3.7 3.4-5.0 g/dL Globulin 3.7 Albumin Globulin Ratio 1.0 Performing Lab: see note ML - [facility] LB IRON Reviewed date:03/18/2024 01:04:34 PM Interpretation: Performing Lab: Notes/Report: [facility] , Iron 76.0 65.0-175.0 ug/dL Performing Lab: see note ML - [facility] LB FERRITIN Reviewed date:03/18/2024 01:04:34 PM Interpretation: Performing Lab: Notes/Report: [facility] , Ferritin 514.0 26.0-388.0 ng/mL Performing Lab: see note ML - [facility] LB CBC AUTO DIFF Reviewed date:03/18/2024 01:04:34 PM Interpretation: Performing Lab: Notes/Report: [facility] , White Blood Count 4.2 4.0-11.0 10 3/uL Red Blood Count 4.48 4.70-6.10 10 6/uL Hemoglobin 13.6 14.0-18.0 g/dL Hematocrit 40.6 42.0-54.0 % Mean Corpuscular Volume 90.6 80.0-94.0 fL Mean Corpuscular Hemoglobin 30.4 25.9-34.0 pg Mean Corpuscular HGB Conc 33.5 29.9-35.2 g/dL Red Cell Distribution Width 12.9 11.0-15.0 % Platelet Count 272 150-450 10 3/uL Mean Platelet Volume 9.1 9.5-13.5 fL Neutrophils Percent Auto 53.2 43.0-75.0 % Lymphocytes Percent Auto 33.3 20.5-60.0 % Monocytes Percent Auto 10.0 1.7-12.0 % Eosinophils Percent Auto 2.1 0.9-7.0 % Basophils Percent Auto 1.2 0.2-2.0 % Immature Granulocytes Pct Auto 0.2 0.0-0.5 % Neutrophils Absolute Auto 2.2 1.4-6.5 10 3/uL Lymphocytes Absolute Auto 1.4 1.2-3.8 10 3/uL Monocytes Absolute Auto 0.4 0.3-0.8 10 3/uL Eosinophils Absolute Auto 0.1 0.0-0.7 10 3/uL Basophils Absolute Auto 0.1 0.0-0.1 10 3/uL Immature Granulocytes Abs Auto 0.01 0.00-0.03 10 3/uL Performing Lab: see note ML - [facility] LB PROF 14(COMP METB) Reviewed date:03/12/2024 06:37:51 PM Interpretation: Performing Lab: Notes/Report: [facility] , Sodium 139 136-145 mmol/L Potassium 4.7 3.5-5.1 mmol/L Chloride 101 98-107 mmol/L Carbon Dioxide 28.3 21.0-32.0 mmol/L Anion Gap 14.4 Glucose 98 74-106 mg/dL Blood Urea Nitrogen 13.0 7.0-18.0 mg/dL Creatinine 1.30 0.70-1.30 mg/dL Estimated GFR ( Anu >60 >=60 mL/min/1.73m 2 Estimated GFR (Non- Ally >60 >=60 mL/min/1.73m 2 BUN Creatinine Ratio 10.0 Calcium 9.6 8.5-10.1 mg/dL Bilirubin Total 0.4 0.2-1.0 mg/dL Aspartate Amino Transferase 21 15-37 U/L Alanine Aminotransferase 50 16-63 U/L Alkaline Phosphatase 97 46-116 U/L Total Protein 7.7 6.4-8.2 g/dL Albumin Level 3.8 3.4-5.0 g/dL Globulin 3.9 Albumin Globulin Ratio 1.0 Performing Lab: see note ML - [facility] LB CBC AUTO DIFF Reviewed date:03/12/2024 06:37:51 PM Interpretation: Performing Lab: Notes/Report: [facility] , White Blood Count 7.3 4.0-11.0 10 3/uL Red Blood Count 4.67 4.70-6.10 10 6/uL Hemoglobin 14.1 14.0-18.0 g/dL Hematocrit 42.6 42.0-54.0 % Mean Corpuscular Volume 91.2 80.0-94.0 fL Mean Corpuscular Hemoglobin 30.2 25.9-34.0 pg Mean Corpuscular HGB Conc 33.1 29.9-35.2 g/dL Red Cell Distribution Width 13.0 11.0-15.0 % Platelet Count 419 150-450 10 3/uL Mean Platelet Volume 9.2 9.5-13.5 fL Neutrophils Percent Auto 67.4 43.0-75.0 % Lymphocytes Percent Auto 21.8 20.5-60.0 % Monocytes Percent Auto 8.6 1.7-12.0 % Eosinophils Percent Auto 1.0 0.9-7.0 % Basophils Percent Auto 0.8 0.2-2.0 % Immature Granulocytes Pct Auto 0.4 0.0-0.5 % Neutrophils Absolute Auto 4.9 1.4-6.5 10 3/uL Lymphocytes Absolute Auto 1.6 1.2-3.8 10 3/uL Monocytes Absolute Auto 0.6 0.3-0.8 10 3/uL Eosinophils Absolute Auto 0.1 0.0-0.7 10 3/uL Basophils Absolute Auto 0.1 0.0-0.1 10 3/uL Immature Granulocytes Abs Auto 0.03 0.00-0.03 10 3/uL Performing Lab: see note ML - [facility] LB ECG 12 lead Reviewed date:03/09/2024 04:04:01 PM Interpretation: Performing Lab: Notes/Report: Source Facility: [facility] [place] [address] [place] [address] Electrocardiograph Report Signed Patient: OLEGARIO DONALD MR#: [id number] : 1990 Acct:[id number] Age/Sex: 33 / M ADM Date: 03/07/24 Loc: ER Attending Dr: Ordering Physician: Rayna Gordon D.O. 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 Signed By: 03/08/24 0601 DD/ 1001 TD/TT: Family Mediator: [place] [address] Electrocardiograph Report Signed Patient: GIOVANY DONALD MR#: [id number] : 1990 Acct:[id number] Age/Sex: 33 / M ADM Date: 03/07/24 Loc: ER Attending Dr: Ordering Physician: Rayna Gordon D.O. 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 Signed By: 03/08/24 0601 DD/ 1001 TD/TT: Family Mediator: Troponin I High Sensitivity Reviewed date:03/07/2024 08:08:08 PM Interpretation: Performing Lab: Notes/Report: [facility] , Troponin I High Sensitivity 6.1 4.0-76.1 pg/mL CUT-OFF POINTS HAVE BEEN ESTABLISHED BASED ON THE FOURTH UNIVERSAL DEFINITION OF MYOCARDIAL INFARCTION. THE UPPER REFERENCE LIMIT (URL) OF TROPONIN, DEFINED THE 99TH PERCENTILE OF cTnI DISTRIBUTION IN A REFERENCE POPULATION, HAS BEEN CONFIRMED THE DECISION THRESHOLD FOR DE DIAGNOSIS. 99TH PERCENTILE = 76.2 PG/ML NOTE: HIGH-SENSITIVITY TROPONIN ASSAY IS NOT INTENDED TO BE USED IN ISOLATION BUT SHOULD BE INTERPRETED IN CONJUNCTION WITH OTHER DIAGNOSTIC AND CLINICAL INFORMATION. Performing Lab: see note ML - [facility] LB MAGNESIUM Reviewed date:03/07/2024 08:08:08 PM Interpretation: Performing Lab: Notes/Report: [facility] , Magnesium 2.1 1.8-2.4 mg/dL Performing Lab: see note ML - [facility] LB Vitamin B12 Reviewed date:03/05/2024 02:33:53 PM Interpretation: Performing Lab: Notes/Report: [facility] , Vitamin B12 755 300-0455 pg/mL Performed at: [facility] [address] [id number] Mycology Teacher: Justino Aragon PhD, Phone: [phone] Performing Lab: see note LC - [facility] LB Manual Differential Reviewed date:03/04/2024 08:01:19 PM Interpretation: Performing Lab: Notes/Report: [facility] , Segmented Neutrophils % Manual 50.0 43.0-75.0 Band Neutrophils % 4.0 0-5 % Lymphocytes Percent Manual 33.0 20.5-60.0 % Monocytes Percent Manual 7.0 1.7-12.0 % Eosinophils Percent Manual 4.0 0.9-7.0 % Basophils Percent Manual 2.0 0.2-2.0 % Segmented Neut Absolute Manual 1.70 1.4-6.5 10 3/uL Band Neutrophils Absolute 0.1 0.0-0.3 10 3/uL Lymphocytes Absolute Manual 1.12 1.20-3.80 10 3/uL Monocytes Absolute Manual 0.23 0.30-0.80 10 3/uL Eosinophils Absolute Manual 0.13 0.00-0.70 10 3/uL Basophils Abs Manual 0.06 0.00-0.10 1 0 3/uL Performing Lab: see note ML - [facility] LB FOLATE Reviewed date:03/04/2024 08:01:19 PM Interpretation: Performing Lab: Notes/Report: [facility] , Folate 5.70 8.60-58.90 ng/mL Performing Lab: see note - [facility] LB CBC AUTO DIFF Reviewed date:03/04/2024 08:01:19 PM Interpretation: Performing Lab: Notes/Report: [facility] , White Blood Count 3.4 4.0-11.0 10 3/uL Red Blood Count 3.59 4.70-6.10 10 6/uL Hemoglobin 11.0 14.0-18.0 g/dL Hematocrit 32.6 42.0-54.0 % Mean Corpuscular Volume 90.8 80.0-94.0 fL Mean Corpuscular Hemoglobin 30.6 25.9-34.0 pg Mean Corpuscular HGB Conc 33.7 29.9-35.2 g/dL Red Cell Distribution Width 12.3 11.0-15.0 % Platelet Count 220 150-450 10 3/uL Mean Platelet Volume 10.5 9.5-13.5 fL Performing Lab: see note ML - [facility] LB FSGLU Reviewed date:02/26/2024 10:03:20 PM Interpretation: Performing Lab: Notes/Report: Glucose, Whole Blood 105 74-100 mg/dL CT sinus wo con Reviewed date:02/25/2024 08:53:17 PM Interpretation: Performing Lab: Notes/Report: Source Facility: [facility]-[address] [place] [address] CT Scan Report Signed Patient: OLEGARIO DONALD MR#: [id number] : 1990 Acct:[id number] Age/Sex: 33 / M ADM Date: 02/25/24 Loc: ER Attending Dr: Ordering Physician: Elva Finney Date of Service: 02/25/24 Procedure(s): CT sinus wo con Accession Number(s): [id number] cc: Latricia Guzman M.D. [place] [id number] Patient Name: OLEGARIO DONALD MRN: [id number] date: 1990 Sex: M Assigned Patient Location: ER Current Patient Location: ER Accession/Order Number: [id number] Exam Date: 02/25/2024 11:35 Report Date: 02/25/2024 12:05 At the request of: ELVA FINNEY Procedure: CT sinus wo con EXAM: CT sinus wo con, CT head/brain wo con CLINICAL INDICATION: bilateral sinus congestion COMPARISON: None TECHNIQUE: Axial CT images of the brain and paranasal sinuses were obtained without contrast. Coronal and sagittal reformats were obtained. Dose reduction techniques were achieved by using automated exposure control and/or adjustment of mA and/or kV according to patient size and/or use of iterative reconstruction technique. FINDINGS: BRAIN: No intracranial hemorrhage, extra-axial fluid collection, hydrocephalus, midline shift, or acute infarction. No other mass effect. Patent basal cisterns. No calvarial fracture. Normal soft tissues. SINUSES: Frontal Sinuses: Clear. Frontal Recesses: Clear. Maxillary Sinuses: Clear. Maxillary Infundibula: Clear. Ethmoid Sinuses: Clear. Sphenoid Sinuses: Clear. Sphenoethmoidal Recesses: Clear. Air-fluid levels: None. Periosteal thickening: None. Nasal Passage: Clear. Asymmetric turbinates with right lee bullosa. Nasal Septum: Deviated towards the left. Lamina Papyracea: Intact. Ethmoidal Notch: No supraorbital pneumatization of ethmoid air cells above the anterior ethmoidal notch. Temporal Bone: Mastoid air cells and middle ear cavities are clear. Orbital Contents: Normal. Soft Tissues: Normal. CT/CT sinus wo con IMPRESSION: 1. No acute intracranial process. 2. Well aerated paranasal sinuses without evidence of acute or chronic sinusitis. Bilateral ostiomeatal complexes are patent. Electronically authenticated by: JUNO TALLEY Date: 02/25/2024 12:05 Dictated By: Juno Talley M.D. Signed By: 02/25/24 1208 DD/ 1205 TD/TT: Family Mediator: [place] [address] CT Scan Report Signed Patient: GIOVANY DONALD MR#: [id number] : 1990 Acct:[id number] Age/Sex: 33 / M ADM Date: 02/25/24 Loc: ER Attending Dr: Ordering Physician: Elva Finney Date of Service: 02/25/24 Procedure(s): CT sin us wo con Accession Number(s): [id number] cc: Latricia Guzman M.D. The [place] [id number] Patient Name: OLEGARIO DONALD MRN: TBH:[id number] date: 1990 Sex: M Assigned Patient Location: ER Current Patient Loca tion: ER Accession/Order Numb er: [id number] Exam Date: 11:35 Report Date: 02/25/2024 12:05 At the request of: ELVA FINNEY Procedure: CT sinus wo con EXAM: CT sinus wo co n, CT head/brain wo con CLINICAL INDICATION: bilateral sinus congestion COMPARISON: None TECHNIQUE: Axial CT images of the brain and paranasal sinuses were obtained without contrast. Co dominick and sagittal reformats were obtained. Dose reduction techniques were achi eved by using automated exposure control and/or adjustment of mA and/or kV acco rding to patient size and/or use of iterative reconstruction technique. FINDINGS: BRAIN: No intracranial hemorrhage, extra-axial fluid collection, hydrocephalus, midline shift, or ac mashpee infarction. No other mass effect. Patent basal cisterns. No calvari al fracture. Normal soft tissues. SINUSES: Frontal Sinuses: Clear. Frontal Recesses: Clear. Maxillary Sinuses: Clear. Maxillary Infundibul a: Clear. Ethmoid Sinuses: Clear. Sphenoid Sinuses: Clear. Sphenoethmoidal Rece sses: Clear. Air-fluid levels: None. Periosteal thickenin g: None. Nasal Passage: Clear . Asymmetric turbinates with right lee bullosa. Nasal Septum: Deviat ed towards the left. Lamina Papyracea: Intact. Ethmoidal Notch: No supraorbital pneumatization of ethmoid air cells above the anterior ethmoidal notch. Temporal Bone: Masto id air cells and middle ear cavities are clear. Orbital Contents: Normal. Soft Tissues: Normal. C T/CT sinus wo con IMPRESSION: 1. No acute intracra nial process. 2. Well aerated para nasal sinuses without evidence of acute or chronic sinusitis. Bilateral ostiomeatal complexes are patent. Electronically authenticated by: JUNO TALLEY Date: 02/25/2024 12:05 Dictated By: Ruthann Talley M.D. Signed By: 02/25/24 1208 DD/ 120 TD/TT: Family Mediator: CT head/brain wo con Reviewed date:02/25/2024 08:53:17 PM Interpretation: Performing Lab: Notes/Report: Source Facility: [place] [address] [place] [address] CT Scan Report Signed Patient: OLEGARIO DONALD MR#: [id number] : 1990 Acct:[id number] Age/Sex: 33 / M ADM Date: 02/25/24 Loc: ER Attending Dr: Ordering Physician: Elva Finney Date of Service: 02/25/24 Procedure(s): CT head/brain wo con Accession Number(s): [id number] cc: Latricia Guzman M.D. The [address] [id number] Patient Name: OLEGARIO DONALD MRN: [id number] date: 1990 Sex: M Assigned Patient Location: ER Current Patient Location: ER Accession/Order Number: [id number] Exam Date: 02/25/2024 11:35 Report Date: 02/25/2024 12:05 At the request of: ELVA FINNEY Procedure: CT head/brain wo con EXAM: CT sinus wo con, CT head/brain wo con CLINICAL INDICATION: bilateral sinus congestion COMPARISON: None TECHNIQUE: Axial CT images of the brain and paranasal sinuses were obtained without contrast. Coronal and sagittal reformats were obtained. Dose reduction techniques were achieved by using automated exposure control and/or adjustment of mA and/or kV according to patient size and/or use of iterative reconstruction technique. FINDINGS: BRAIN: No intracranial hemorrhage, extra-axial fluid collection, hydrocephalus, midline shift, or acute infarction. No other mass effect. Patent basal cisterns. No calvarial fracture. Normal soft tissues. SINUSES: Frontal Sinuses: Clear. Frontal Recesses: Clear. Maxillary Sinuses: Clear. Maxillary Infundibula: Clear. Ethmoid Sinuses: Clear. Sphenoid Sinuses: Clear. Sphenoethmoidal Recesses: Clear. Air-fluid levels: None. Periosteal thickening: None. Nasal Passage: Clear. Asymmetric turbinates with right lee bullosa. Nasal Septum: Deviated towards the left. Lamina Papyracea: Intact. Ethmoidal Notch: No supraorbital pneumatization of ethmoid air cells above the anterior ethmoidal notch. Temporal Bone: Mastoid air cells and middle ear cavities are clear. Orbital Contents: Normal. Soft Tissues: Normal. CT/CT head/brain wo con IMPRESSION: 1. No acute intracranial process. 2. Well aerated paranasal sinuses without evidence of acute or chronic sinusitis. Bilateral ostiomeatal complexes are patent. Electronically authenticated by: JUNO TALLEY Date: 02/25/2024 12:05 Dictated By: Juno Talley M.D. Signed By: 02/25/24 1208 DD/ 120 TD/TT: Family Mediator: The [address] [address] [address] Scan Report Signed Patient: GIOVANY DONALD MR#: [id number] : 1990 Acct:[id number] Age/Sex: 33 / M ADM Date: 02/25/24 Loc: ER Attending Dr: Ordering Physician: Elva Finney Date of Service: 02/25/24 Procedure(s): CT head/brain wo con Accession Number(s): [id number] cc: Latricia Guzman M.D. The [address] [address] Patient Name: OLEGARIO DONALD MRN: [id number] date: 1990 Sex: M Assigned Patient Location: ER Current Patient Loca tion: ER Accession/Order Numb er: [id number] Exam Date: 11:35 Report Date: 02/25/2024 12:05 At the request of: ELVA FINNEY Procedure: CT head/b rain wo con EXAM: CT sinus wo co n, CT head/brain wo con CLINICAL INDICATION: bilateral sinus congestion COMPARISON: None TECHNIQUE: Axial CT images of the brain and paranasal sinuses were obtained without contrast. Co dominick and sagittal reformats were obtained. Dose reduction techniques were achi eved by using automated exposure control and/or adjustment of mA and/or kV acco rding to patient size and/or use of iterative reconstruction technique. FINDINGS: BRAIN: No intracranial hemorrhage, extra-axial fluid collection, hydrocephalus, midline shift, or ac [place] infarction. No other mass effect. Patent basal cisterns. No calvari al fracture. Normal soft tissues. SINUSES: Frontal Sinuses: Clear. Frontal Recesses: Clear. Maxillary Sinuses: Clear. Maxillary Infundibul a: Clear. Ethmoid Sinuses: Clear. Sphenoid Sinuses: Clear. Sphenoethmoidal Rece sses: Clear. Air-fluid levels: None. Periosteal thickenin g: None. Nasal Passage: Clear . Asymmetric turbinates with right lee bullosa. Nasal Septum: Deviat ed towards the left. Lamina Papyracea: Intact. Ethmoidal Notch: No supraorbital pneumatization of ethmoid air cells above the anterior ethmoidal notch. Temporal Bone: Masto id air cells and middle ear cavities are clear. Orbital Contents: Normal. Soft Tissues: Normal. C T/CT head/brain wo con IMPRESSION: 1. No acute intracra nial process. 2. Well aerated para nasal sinuses without evidence of acute or chronic sinusitis. Bilateral ostiomeatal complexes are patent. Electronically authenticated by: JUNO TALLEY Date: 02/25/2024 12:05 Dictated By: Ruthann Talley M.D. Signed By: 02/25/24 1208 DD/ 1205 TD/TT: Family Mediator: CT abdomen pelvis wo con Reviewed date:02/25/2024 08:53:17 PM Interpretation: Performing Lab: Notes/Report: Source Facility: [place] [address] CT Scan Report Signed Patient: OLEGARIO DONALD MR#: [id number] : 1990 Acct:[id number] Age/Sex: 33 / M ADM Date: 02/25/24 Loc: ER Attending Dr: Ordering Physician: Elva Finney Date of Service: 02/25/24 Procedure(s): CT abdomen pelvis wo con Accession Number(s): [id number] cc: Latricia Guzman M.D. [place] [address] Patient Name: OLEGARIO DONALD MRN: [id number] date: 1990 Sex: M Assigned Patient Location: ER Current Patient Location: Accession/Order Number: [id number] Exam Date: 02/25/2024 11:35 Report Date: 02/25/2024 13:13 At the request of: ELVA FINNEY Procedure: CT abdomen pelvis wo con EXAM: CT abdomen pelvis wo con INDICATION: RLQ pain. COMPARISON: CT abdomen pelvis 02/11/2024 TECHNIQUE: Multiple contiguous axial CT images of the abdomen and pelvis were obtained without the use of intravenous contrast. Sagittal and coronal reconstructions were performed. Dose reduction techniques were achieved by using: automated exposure control and/or adjustment of mA and /or kV according to patient size and/or use of iterative reconstruction technique. FINDINGS: Evaluation of visceral organs limited by noncontrast technique. LOWER CHEST: No significant abnormality. ABDOMEN AND PELVIS: LIVER: Unremarkable. BILIARY SYSTEM: Normal gallbladder. No biliary ductal dilatation. PANCREAS: Unremarkable. SPLEEN: Unremarkable. ADRENAL GLANDS: Normal. URINARY SYSTEM: Nonobstructing right renal stones measuring up to 4 mm. Punctate left renal 1 mm stones. No hydronephrosis or urolithiasis. Normal bladder. REPRODUCTIVE: Unremarkable. GASTROINTESTINAL TRACT: Normal caliber bowel. No bowel wall thickening or inflammation. Normal appendix. VESSELS: Nonaneurysmal abdominal aorta. LYMPH NODES: No adenopathy. PERITONEUM: No ascites or pneumoperitoneum. MUSCULOSKELETAL: SOFT TISSUES: Unremarkable soft tissues. BONES: No acute osseous abnormality or suspicious osseous lesion. SALGADO: (series:image) CT/CT abdomen pelvis wo con IMPRESSION: 1. No acute abdominal or pelvic process. 2. Bilateral nephrolithiasis. Electronically authenticated by: LIZ ALVARADO Date: 02/25/2024 13:13 Dictated By: Liz Alvarado M.D. Signed By: 02/25/24 1316 DD/ 1313 TD/TT: Family Mediator: [place] [address] CT Scan Report Signed Patient: GIOVANY DONALD MR#: [id number] : 1990 Acct:[id number] Age/Sex: 33 / M ADM Date: 02/25/24 Loc: ER Attending Dr: Ordering Physician: Elva Finney Date of Service: 02/25/24 Procedure(s): CT abd omen pelvis wo con Accession Number(s): [id number] cc: Latricia Guzman M.D. [place] [id number] Patient Name: OLEGARIO DONALD MRN: [id number] date: 1990 Sex: M Assigned Patient Location: ER Current Patient Location: Accession/Order Numb er: [id number] Exam Date: 11:35 Report Date: 02/25/2024 13:13 At the request of: ELVA FINNEY Procedure: CT abdome n pelvis wo con EXAM: CT abdomen pel vis wo con INDICATION: RLQ pain. COMPARISON: CT abdom en pelvis 02/11/2024 TECHNIQUE: Multiple contiguous axial CT images of the abdomen and pelvis were obtained without the use of intravenous contrast. Sagittal and coronal reconstructions were performed. Dose reduction techn iques were achieved by using: automated exposure control and/or adjustment of mA and /or kV according to patient size and/or use of iterative reconstruc tion technique. FINDINGS: Evaluation of viscer al organs limited by noncontrast technique. LOWER CHEST: No significant abnormality. ABDOMEN AND PELVIS: LIVER: Unremarkable. BILIARY SYSTEM: Norm al gallbladder. No biliary ductal dilatation. PANCREAS: Unremarkable. SPLEEN: Unremarkable. ADRENAL GLANDS: Normal. URINARY SYSTEM: Nonobstructing right renal stones measuring up to 4 mm. Punctate left renal 1 mm stones. No hydronephrosis or urolithiasis. Normal bladder. REPRODUCTIVE: Unremarkable. GASTROINTESTINAL TRA CT: Normal caliber bowel. No bowel wall thickening or inflammation. Normal appendix. VESSELS: Nonaneurysm al abdominal aorta. LYMPH NODES: No adenopathy. PERITONEUM: No ascit es or pneumoperitoneum. MUSCULOSKELETAL: SOFT TISSUES: Unremarkable soft tissues. BONES: No acute osse ous abnormality or suspicious osseous lesion. SALGADO: (series:image) C T/CT abdomen pelvis wo con IMPRESSION: 1. No acute abdomina l or pelvic process. 2. Bilateral nephrolithiasis. Electronically authenticated by: LIZ ALVARADO Date: 02/25/2024 13:13 Dictated By: Zuleyma Alvarado M.D. 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 Signed By: 02/27/24 2300 DD/ 1035 TD/TT: Family Mediator: Ethanol Reviewed date:02/25/2024 08:53:17 PM Interpretation: Performing Lab: Notes/Report: [facility] , Ethanol <3 NOTE: 80 mg/dl is the legal limit for a blood alcohol level Performing Lab: see note ML - [facility] LB Troponin I High Sensitivity Reviewed date:02/25/2024 08:53:17 PM Interpretation: Performing Lab: Notes/Report: [facility] , Troponin I High Sensitivity 14.8 4.0-76.1 pg/mL CUT-OFF POINTS HAVE BEEN ESTABLISHED BASED ON THE FOURTH UNIVERSAL DEFINITION OF MYOCARDIAL INFARCTION. THE UPPER REFERENCE LIMIT (URL) OF TROPONIN, DEFINED THE 99TH PERCENTILE OF cTnI DISTRIBUTION IN A REFERENCE POPULATION, HAS BEEN CONFIRMED THE DECISION THRESHOLD FOR DE DIAGNOSIS. 99TH PERCENTILE = 76.2 PG/ML NOTE: HIGH-SENSITIVITY TROPONIN ASSAY IS NOT INTENDED TO BE USED IN ISOLATION BUT SHOULD BE INTERPRETED IN CONJUNCTION WITH OTHER DIAGNOSTIC AND CLINICAL INFORMATION. Performing Lab: see note ML - [facility] LB Manual Differential Reviewed date:02/25/2024 08:53:17 PM Interpretation: Performing Lab: Notes/Report: [facility] , Segmented Neutrophils % Manual 76.0 43.0-75.0 Band Neutrophils % 6.0 0-5 % Lymphocytes Percent Manual 12.0 20.5-60.0 % Monocytes Percent Manual 6.0 1.7-12.0 % Eosinophils Percent Manual 0.0 0.9-7.0 % Basophils Percent Manual 0.0 0.2-2.0 % Segmented Neut Absolute Manual 2.88 1.4-6.5 10 3/uL Band Neutrophils Absolute 0.2 0.0-0.3 10 3/uL Lymphocytes Absolute Manual 0.45 1.20-3.80 10 3/uL Monocytes Absolute Manual 0.22 0.30-0.80 10 3/uL Eosinophils Absolute Manual 0.00 0.00-0.70 10 3/uL Basophils Abs Manual 0.00 0.00-0.10 1 0 3/uL Performing Lab: see note ML - [facility] LB Prothrombin Time INR Reviewed date:02/25/2024 08:53:17 PM Interpretation: Performing Lab: Notes/Report: [facility] , Prothrombin Time 11.5 9.0-11.6 sec INR 1.09 DESIRED INR: 2.0-3.0 CONDITIONS NOT LISTED BELOW 2.5-3.5 FOR PROSTHETIC HEART VALVE REPLACEMENT 2.5-3.5 RECURRENT THROMBOSIS Performing Lab: see note ML - [facility] PROF 14(COMP METB) Reviewed date:02/25/2024 08:53:17 PM Interpretation: Performing Lab: Notes/Report: [facility] , Sodium 137 136-145 mmol/L Potassium 3.5 3.5-5.1 mmol/L Chloride 99 98-107 mmol/L Carbon Dioxide 23.6 21.0-32.0 mmol/L Anion Gap 17.9 Glucose 112 74-106 mg/dL Blood Urea Nitrogen 14.0 7.0-18.0 mg/dL Creatinine 1.42 0.70-1.30 mg/dL Estimated GFR ( Anu >60 >=60 mL/min/1.73m 2 Estimated GFR (Non- Ally 58 >=60 mL/min/1.73m 2 BUN Creatinine Ratio 9.9 Calcium 9.1 8.5-10.1 mg/dL Bilirubin Total 1.3 0.2-1.0 mg/dL Aspartate Amino Transferase 54 15-37 U/L Alanine Aminotransferase 52 16-63 U/L Alkaline Phosphatase 98 46-116 U/L Total Protein 7.6 6.4-8.2 g/dL Albumin Level 3.7 3.4-5.0 g/dL Globulin 3.9 Albumin Globulin Ratio 0.9 Performing Lab: see note ML - [facility] MAGNESIUM Reviewed date:02/25/2024 08:53:17 PM Interpretation: Performing Lab: Notes/Report: [facility] , Magnesium 2.1 1.8-2.4 mg/dL Performing Lab: see note ML - [facility] LACTATE or LACTIC ACID Reviewed date:02/25/2024 08:53:17 PM Interpretation: Performing Lab: Notes/Report: [facility] , Lactate/Lactic Acid 0.7 0.4-2.0 mmol/L Performing Lab: see note ML - [facility] CBC AUTO DIFF Reviewed date:02/25/2024 08:53:17 PM Interpretation: Performing Lab: Notes/Report: [facility] , White Blood Count 3.8 4.0-11.0 10 3/uL Red Blood Count 5.00 4.70-6.10 10 6/uL Hemoglobin 15.5 14.0-18.0 g/dL Hematocrit 43.9 42.0-54.0 % Mean Corpuscular Volume 87.8 80.0-94.0 fL Mean Corpuscular Hemoglobin 31.0 25.9-34.0 pg Mean Corpuscular HGB Conc 35.3 29.9-35.2 g/dL Red Cell Distribution Width 12.0 11.0-15.0 % Platelet Count 120 150-450 10 3/uL Mean Platelet Volume 9.9 9.5-13.5 fL Performing Lab: see note ML - [facility] CT abdomen pelvis wo con Reviewed date:02/12/2024 08:16:23 PM Interpretation: Performing Lab: Notes/Report: Source Facility: [facility] [place] [address] [place] [address] CT Scan Report Signed Patient: OLEGARIO DONALD MR#: [id number] : 1990 Acct:[id number] Age/Sex: 33 / M ADM Date: 02/11/24 Loc: ER Attending Dr: Ordering Physician: Roxi Estes M.D. Date of Service: 02/11/24 Procedure(s): CT abdomen pelvis wo con Accession Number(s): [id number] cc: Latricia Guzman M.D. [place] [address] Patient Name: OLEGARIO DONALD MRN: [id number] date: 1990 Sex: M Assigned Patient Location: ER Current Patient Location: ER Accession/Order Number: [id number] Exam Date: 02/11/2024 23:04 Report Date: 02/12/2024 01:15 At the request of: ROXI ESTES Procedure: CT abdomen pelvis wo con EXAM: CT abdomen pelvis wo con HISTORY: Right flank pain, r/o stone COMPARISON: CT abdomen and pelvis examination dated 07/22/2022. TECHNIQUE: Noncontrast axial CT images through the abdomen and pelvis were obtained with coronal and sagittal reformats. Dose reduction techniques were achieved by using automated exposure control and/or adjustment of mA and/or kV according to patient size and/or use of iterative reconstruction technique. FINDINGS: The visualized portions of the lung bases are clear. Abdomen: Please note that the sensitivity for detection of focal lesions or vascular disease is markedly reduced without intravenous contrast. The liver and spleen are unremarkable. There is no intra or extrahepatic biliary duct dilatation. The gallbladder is unremarkable. There are bilateral nonobstructive renal calculi measuring up to 0.3 cm on the right. There are scattered colonic diverticula without evidence of acute inflammation. Otherwise, the pancreas, adrenal glands, and bowel loops, including the appendix, are unremarkable. There is no mesenteric or retroperitoneal lymphadenopathy. Pelvis: The bladder demonstrates wall thickening. The rectum is unremarkable. There is no iliac or inguinal lymphadenopathy. There is mild atherosclerotic disease. Bone windows show no aggressive osseous lesions. CT/CT abdomen pelvis wo con IMPRESSION: 1. Bilateral nonobstructive renal calculi with no ureteral calculus seen. 2. Scattered colonic diverticula without evidence of acute inflammation. 3. Normal appendix. 4. Urinary bladder wall thickening. Please correlate with urinalysis for infection. Electronically authenticated by: Zuleyma WONG Date: 02/12/2024 01:15 Dictated By: Fidel Wong M.D. Signed By: 02/12/24117 DD/ 4 TD/TT: Family Mediator: [place] [address] CT Scan Report Signed Patient: GIOVANY DONALD MR#: [id number] : 1990 Acct:[id number] Age/Sex: 33 / M ADM Date: 02/11/24 Loc: ER Attending Dr: Ordering Physician: Roxi Estes M.D. Date of Service: 02/11/24 Procedure(s): CT abd omen pelvis wo con Accession Number(s): [id number] cc: Latricia Guzman M.D. [address] [address] Patient Name: OLEGARIO DONALD MRN: [facility]:[id number] date: 1990 Sex: M Assigned Patient Location: ER Current Patient Loca tion: ER Accession/Order Numb er: [id number] Exam Date: 23:04 Report Date: 02/12/2024 01:15 At the request of: ROXI ESTES Procedure: CT abdome n pelvis wo con EXAM: CT abdomen pel vis wo con HISTORY: Right flank pain, r/o stone COMPARISON: CT abdom en and pelvis examination dated 07/22/2022. TECHNIQUE: Noncontra st axial CT images through the abdomen and pelvis were obtained with christine l and sagittal reformats. Dose reduction techn iques were achieved by using automated exposure control and/or adjustment of mA and/or kV according to patient size and/or use of iterative reconstruc tion technique. FINDINGS: The visualized porti ons of the lung bases are clear. Abdomen: Please note that the sensitivity for detection of focal lesions or vascular disease is markedly reduced without intravenous contrast. The liver and spleen are unremarkable. There is no intra or extrahepatic biliary duct dilatat ion. The gallbladder is unremarkable. There are bilateral nonobstructive renal calculi measuring up to 0.3 cm on the right. There are scattered colonic diverticula without evidence of acute inflammation. Otherwise, the pancr eas, adrenal glands, and bowel loops, including the appendix, are unremarkable. There is no mesenteric or retroperitoneal lymphadenopathy. Pelvis: The bladder demonstrates wall thickening. The rectum is unremarkable. There is no iliac or inguinal lymphadenopathy. There is mild atherosclerotic disease. Bone windows show no aggressive osseous lesions. C T/CT abdomen pelvis wo con IMPRESSION: 1. Bilateral nonobstructive renal calculi with no ureteral calculus seen. 2. Scattered colonic diverticula without evidence of acute inflammation. 3. Normal appendix. 4. Urinary bladder w all thickening. Please correlate with urinalysis for infection. Electronically authenticated by: Zuleyma WONG Date: 02/12/2024 01:15 Dictated By: Fidel Wong M.D. Signed By: 02/12/248 DD/ 4 TD/TT: Family Mediator: STEFANI KAPLAN W or MICROSCOPIC Reviewed date:02/12/2024 08:16:23 PM Interpretation: Performing Lab: Notes/Report: [facility] , Color Urine LT. YELLOW YELLOW Clarity Urine CLEAR CLEAR Specific [place] Urine 1.020 1.005-1.025 pH Urine 6.0 5.0-9.0 Protein Urine NEGATIVE NEG/TRACE mg/dL Glucose Urine UA NEGATIVE NEGATIVE mg/dL Bilirubin Urine NEGATIVE NEGATIVE Ketones Urine NEGATIVE NEGATIVE mg/dL Blood Urine NEGATIVE NEGATIVE Nitrite Urine NEGATIVE NEGATIVE Urobilinogen Urine 0.2 0.2-1.0 EU/dL Leukocyte Esterase Urine NEGATIVE NEGATIVE WBC Urine NONE SEEN NONE SEEN #/HPF RBC Urine NONE SEEN 0-2 #/HPF Bacteria Urine NONE SEEN NONE SEEN #/HPF Mucus Urine NONE SEEN NONE SEEN Squamous Epithelial Cell Urine RARE NONE/RARE #/LPF Crystals Seen? None Seen None Seen #/HPF Cast Seen? NONE SEEN NONE SEEN #/LPF Performing Lab: see note ML - [facility] LB XR chest 2V Reviewed date:01/31/2024 09:51:49 PM Interpretation: Performing Lab: Notes/Report: Source Facility: [facility] [place] [address] [place] [address] XRay Report Signed Patient: OLEGARIO DONALD MR#: [id number] : 1990 Acct:[id number] Age/Sex: 33 / M ADM Date: 01/31/24 Loc: RAD Attending Dr: Latricia Guzman M.D. Ordering Physician: Latricia Guzman M.D. Date of Service: 01/31/24 Procedure(s): XR chest 2V Accession Number(s): [id number] cc: Latricia Guzman M.D. The [place] [address] Patient Name: OLEGARIO DONALD MRN: [id number] date: 1990 Sex: M Assigned Patient Location: [facility] Current Patient Location: RAD Accession/Order Number: [id number] Exam Date: 01/31/2024 14:55 Report Date: 01/31/2024 15:20 At the request of: LATRICIA GUZMAN Procedure: XR chest 2V EXAM: XR chest 2V HISTORY: Snoring . The patient fell 2 weeks ago with an injury. COMPARISON: 01/03/2023 TECHNIQUE: Upright PA and lateral chest x-ray FINDINGS: The heart is not enlarged and the vasculature is not distended. No acute infiltrate, effusion or pneumothorax is identified. The osseous structures are grossly intact. XR/XR chest 2V IMPRESSION: No acute infiltrate or evidence of cardiac decompensation. The overall appearance of the chest is essentially unchanged. Electronically authenticated by: FAUSTINO CROWLEY Date: 01/31/2024 15:20 Dictated By: Faustino Crowley M.D. Signed By: 01/31/241522 DD/ 19 TD/TT: Family Mediator: [place] [address] XRay Report Signed Patient: GIOVANY DONALD MR#: [id number] : 1990 Acct:[id number] Age/Sex: 33 / M ADM Date: 01/31/24 Loc: [facility] Attending Dr: Adan Guzman M.D. Ordering Physician: Latricia Guzman M.D. Date of Service: 01/31/24 Procedure(s): XR chest 2V Accession Number(s): [id number] cc: Latricia Guzman M.D. [place] [address] Patient Name: OLEGARIO DONALD MRN: [id number] date: 1990 Sex: M Assigned Patient Location: [facility] Current Patient Loca tion: RAD Accession/Order Numb er: [id number] Exam Date: 14:55 Report Date: 01/31/2024 15:20 At the request of: LATRICIA GUZMAN Procedure: XR chest 2V EXAM: XR chest 2V HISTORY: Snoring . T he patient fell 2 weeks ago with an injury. COMPARISON: 01/03/2023 TECHNIQUE: Upright P A and lateral chest x-ray FINDINGS: The heart is not enlarged and the vasculature is not distended. No acute infiltrate, effusion or pneumothorax is identified. The osseous structures are gross ly intact. X R/XR chest 2V IMPRESSION: No acute infiltrate or evidence of cardiac decompensation. The overall appearance of the ch est is essentially unchanged. Electronically authenticated by: FAUSTINO CROWLEY Date: 01/31/2024 15:20 Dictated By: Hannah Crowley M.D. Signed By: 01/31/24 1523 DD/ 1520 TD/TT: Family Mediator: CBC AUTO DIFF Reviewed date:03/07/2024 08:08:08 PM Interpretation: Performing Lab: Notes/Report: [facility] , White Blood Count 6.6 4.0-11.0 10 3/uL Red Blood Count 3.74 4.70-6.10 10 6/uL Hemoglobin 11.4 14.0-18.0 g/dL Hematocrit 34.2 42.0-54.0 % Mean Corpuscular Volume 91.4 80.0-94.0 fL Mean Corpuscular Hemoglobin 30.5 25.9-34.0 pg Mean Corpuscular HGB Conc 33.3 29.9-35.2 g/dL Red Cell Distribution Width 12.4 11.0-15.0 % Platelet Count 327 150-450 10 3/uL Mean Platelet Volume 9.8 9.5-13.5 fL Neutrophils Percent Auto 69.3 43.0-75.0 % Lymphocytes Percent Auto 19.7 20.5-60.0 % Monocytes Percent Auto 7.4 1.7-12.0 % Eosinophils Percent Auto 1.8 0.9-7.0 % Basophils Percent Auto 0.6 0.2-2.0 % Immature Granulocytes Pct Auto 1.2 0.0-0.5 % Neutrophils Absolute Auto 4.6 1.4-6.5 10 3/uL Lymphocytes Absolute Auto 1.3 1.2-3.8 10 3/uL Monocytes Absolute Auto 0.5 0.3-0.8 10 3/uL Eosinophils Absolute Auto 0.1 0.0-0.7 10 3/uL Basophils Absolute Auto 0.0 0.0-0.1 10 3/uL Immature Granulocytes Abs Auto 0.08 0.00-0.03 10 3/uL Performing Lab: see note ML - [facility] Reason For Referral Reason seizure like activit y, intractable headache since Diagnosis 1 Migraine (G43.909) Diagnosis 2 Seizure (R56.9) Referral Organization [facility] Referring Provider First Name Keena Referring Provider Last Name Troy Referring Provider [facility] icitaylor Referred Provider Hayley Suárez Referred Provider Specialty Neurology Referral Priority Routine Diagnosis 1 Seizure (R56.9) Referral Organization [facility] Referring Provider First Name Humberto Referring Provider Last Name Thomas Referring Provider [facility] Referred Provider undefined Referred Provider Specialty Neurology Referral Priority Routine Diagnosis 1 Nevus (D22.9) Referral Organization [facility] Referring Provider First Name Humberto Referring Provider Last Name Thomas [facility]erred [facility] Gaston Oh Referred Provider Specialty General Surg colleen Referral Priority Routine Diagnosis 1 Abnormal renal funct ion (N28.9) Referral Organization [facility] Referring Provider First Name Humberto Referring Provider Last Name [facility] Referred Provider Isidro Zepeda Referred Provider Specialty Nephrology Referral Priority Routine Medications Medication SIG (Take, Route, Frequency, Duration) Notes Start Date End Date Status Excedrin Migraine No t-Taking Sodium Chloride Acti ve Klor-Con 10 10 MEQ 2 tablet with food Orally Twice a day for 30 days 10/16/2024 Active Nurtec 75 MG 1 tablet on the tongue and allow to dissolve Orally daily as needed for 30 days 03/11/2024 Active LaMICtal 25 MG 1 tablet Orally once a day for 90 days 09/19/2024 Active Fludrocortisone Acetate 0.1 mg TAKE 3 TABLETS BY MOUTH ONCE DAILY FOR 30 DAYS for 30 days Active Ondansetron 4 MG 1 tablet on [...] in quitting? Not ready to dal[place] t Alcohol Screen (Audit-C) Question Answer Notes Did you have a drink containing alcohol in the p ast year? 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 Problem Snoring (88980259) Snoring (R06.83) Active confirmed Problem Neck pain (64055383) Neck pain (M54.2) Active confirmed Problem Syncope (494806632) Syncope (R55) Active confirmed Problem Migraine (34351289) Migraine (G43.909) Active confirmed Problem Acute sinusitis (40449130) Acute sinusitis (J01.90) Active confirmed Problem Kidney stone (66967616) Kidney stones (N20.0) Active confirmed Problem Pain of right knee region (finding) (71682165956901 5) Knee pain, right (M25.561) Active confirmed Problem Well adult (210674763) Well adult (Z00.00) Active confirmed Problem Leg pain (26663315) Leg pain (M79.606) Active confirmed Problem Obstructive uropathy (2331180) Obstructive uropathy (N13.9) Active confirmed Problem Memory loss (34279616) Memory loss (R41.3) Active confirmed Problem Overweight (205589103) Over weight (E66.3) Active confirmed Problem Neutropenia (955382358) Neutropenia (D70.9) Active confirmed Problem Nevus (0754955023) Nevus (D22.9) Active confirmed Problem Elbow pain (26381986) Elbow pain (M25.529) Active confirmed Problem Seizure (92390224) Seizure (R56.9) Active confirmed Problem Adult health examination (206533533) Encounter for routine adult health examination (Z00.00) Active confirmed Problem Peripheral vertigo (36708691) Vertigo, peripheral (H81.399) Active confirmed Problem 31460189 Juvenile osteochondrosis of tibia tubercle, 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 [address] [place] [address] 10/30/2024 Humberto Hoy Abnormal renal function N28.9 [place] [address] [place] [address] 11/04/[address] [facility] [address] [place] [address] 11/06/[address] [facility] [address] [place] [address] 09/17/[address] [facility] [address] [place] [address] 09/19/[address] [facility] [address] [place] [address] 09/20/[address] [facility] [address] [place] [address] 10/01/2024 Humberto Hoy Syncope R55 [address]06[address]83 [facility] [address] [place] [address] 10/04/2024 H[address]to Hoy Syncope R55 [facility] [address] [place] [address] 10/15/[address] [facility] [address] [place] [address] 08/20/[address] [facility] [address] [facility] [place] [address] 08/28/2024 Humberto Hoy [facility] [address] [facility] [facility] [place] [address] 08/29/[address] [facility] [address] [facility] [place] [place] [address] 09/03/[address] [facility] [address] [facility] [place] [address] 09/12/[address] [facility] [address] [facility] [place] [place] [address] 09/17/2024 [address] Syncope R55 [facility] [address] [facility] [place] [place] [address] 04/29/[address] [facility] [address] [facility] [place] [place] [address] 07/01/2024 Humberto Hoy Seizure R56.9 [facility] [address] [facility] [place] [address] 07/08/2024 Humberto Hoy Seizure R56.9 [facility] [address] [facility] [place] [address] 07/17/[address] [facility] [address] [facility] [place] [address] 07/25/2024 Humberto [address] Snoring R06.83 [facility] [address] [facility] [place] [address] 08/02/[address] [facility] [address] [facility] [place] [address] 04/01/2024 Humberto Hoy Anemia, unspecified D64.9 [facility] [address] [facility] [place] [place] [address] 04/02/[address] [facility] [address] [facility] [place] [address] 04/08/[address] [facility] [address] [facility] [place] [address] 04/15/[address] [facility] [address] [facility] [place] [place] [address] 04/17/[address] [facility] [address] [facility] [place] [address] 04/25/[address] [facility] [address] [facility] [place] [place] [address] 03/22/[address] [facility] [address] [facility] [place] [place] [address] 03/23/[address] [facility] [address] [facility] [place] [place] [address] 03/25/[address] [facility] [address] [facility] [place] [address] 03/25/[address] [facility] [address] [facility] [place] [place] [address] 03/25/2024 Humberto Guzman [facility] [address] [facility] [place] [address] 03/26/[address] [facility] [address] [facility] [place] [address] 03/11/2024 Humberto Hoy Memory loss R41.3 an d Tremor of right hand R25.1 [facility] [address] [facility] [place] [address] 03/11/[address] [facility] [address] [facility] [place] [place] [address] 03/15/2024 Humberto Hoy Over weight E66.3 [facility] [address] [facility] [place] [place] [address] 03/18/2024 Humberto Hoy Seizure R56.9 and Memory loss R41.3 [facility] [address] [facility] [place] [address] 03/18/2024 Humberto Hoy Abnormal renal function N28.9 [facility] [address] [place] [facility] [place] [address] 03/20/[address] [facility] [address] [place] [place] [address] 01/31/[address] [facility] [address] [place] [facility] [place] [address] 03/04/[address] [facility] [address] [place] [place] [address] 03/05/[address] [facility] [address] [place] [place] [address] 03/06/[address] [facility] [address] [place] [place] [address] 03/07/[address] [facility] [address] [place] [place] [address] 03/11/[address] [facility] [address] [place] [place] [address] 12/22/[address] [facility] [address] [place] [place] [address] 03/08/2024 Keena Simmons Migraine G43.[address] [facility] [address] [place] [place] [address] 03/14/2024 Humberto Lyonsy Over weight E66.3 an d Seizure R56.9 [facility] [address] [place] [place] [address] 08/19/2024 Humberto Hoy Nevus D22.9 ; Orthostatic dizziness R42 [address]raine [address]43[address] [facility] [address] [place] [place] [address] 10/14/2024 Humberto Hoy Well adult Z00.00 [facility] [address] [place] [place] [address] 11/04/2024 Hubmerto Hoy Neck pain M54.2 and Elbow pain M25.529 [facility] [address] [place] [place] [address] 03/05/2024 Humberto Hoy Seizure R56.[address] [facility] [address] [place] [address] 06/25/2024 Humberto Hoy Seizure R56.9 ; Migraine G43.[address] [facility] [address] [place] [address] 01/31/2024 Humberto Hoy Snoring R06.83 and Chest wall pain R07.89 [facility] [address] [place] [address] 02/22/2024 Humberto Hoy Lethargy R53.[address] [facility] [address] [place] [address] 09/19/2024 Humberto Hoy Syncope R55 and Migraine G43.909 Assessments Encounter Date Diagnosis (ICD Code) Assessment Notes Treatment Notes Treatment Clinical Notes Section Notes 03/05/2024 Seizure (ICD-10 - R56.9) reviewed EEG - no seizure activity noted 03/05/2024 Neutropenia (ICD-10 - D70.9) 03/08/2024 Migraine (ICD-10 - G43.909) TOradol norflex samples nurtec fu INGRID 01/31/2024 Snoring (ICD-10 - R06.83) 01/31/2024 Chest wall pain (ICD-10 - R07.89) 02/22/2024 Lethargy (ICD-10 - R53.83) 02/22/2024 Body aches (ICD-10 - R52) 09/19/2024 Syncope (ICD-10 - R55) 09/19/2024 Migraine (ICD-10 - G43.909) 10/14/2024 Well adult (ICD-10 - Z00.00) 11/04/2024 Neck pain (ICD-10 - M54.2) 11/04/2024 Elbow pain (ICD-10 - M25.529) 03/11/2024 Memory loss (ICD-10 - R41.3) 03/11/2024 Tremor of right hand (ICD-10 - R25.1) 03/15/2024 Over weight (ICD-10 - E66.3) 03/18/2024 Seizure (ICD-10 - R56.9) 03/18/2024 Memory loss (ICD-10 - R41.3) 03/18/2024 Abnormal renal function (ICD-10 - N28.9) 04/01/2024 Anemia, unspecified (ICD-10 - D64.9) 07/01/2024 Seizure (ICD-10 - R56.9) 07/08/2024 Seizure (ICD-10 - R56.9) 07/25/2024 Snoring (ICD-10 - R06.83) 09/17/2024 Syncope (ICD-10 - R55) 10/01/2024 Syncope (ICD-10 - R55) 03/14/2024 Over weight (ICD-10 - E66.3) 03/14/2024 Seizure (ICD-10 - R56.9) 06/25/2024 Seizure (ICD-10 - R56.9) seeing new neurologius 06/25/2024 Migraine (ICD-10 - G43.909) beter with jason propranolol but near syncope worse 08/19/2024 Nevus (ICD-10 - D22.9) 08/19/2024 Orthostatic dizziness (ICD-10 - R42) 10/04/2024 Syncope (ICD-10 - R55) 10/30/2024 Abnormal renal function (ICD-10 - N28.9) 08/19/2024 Migraine (ICD-10 - G43.909) 06/25/2024 Syncope (ICD-10 - R55) wonder if mor hypotensive 10/01/2024 Snoring (ICD-10 - R06.83) 03/08/2024 Seizure (ICD-10 - R56.9) recent sz like activity headache since MRI, CT brain WNL EEG ok 02/22/2024 Other Recommended to rest and use a heating pad on the area. Take NSAIDs for pain as needed Plan Of Treatment Pending Test Test Name Order Date TILT TABLE EVALUATION 09/17/2024 HEMOGLOBIN A1C (GLYCO) 10/14/2024 INSULIN, TOTAL 10/14/2024 LIPID PANEL (CHOL/TRIG/HDL/LDL) 10/15/19 CARDIO Echocardiogram 08/19/2024 RHEUMATOID PANEL 10/19/2022 FECAL OCCULT BLOOD 04/01/2024 Sleep study - Diagnostic Polysonogram Arterial Lower Extremity Bilat - perform ed 10/19/2022 BMP - Basic Metabolic Panel 03/18/2024 Basic Metabolic Panel (8) 10/04/2024 CT Brain w/o Contrast 11/04/2024 MRI Brain w/ + w/o Contrast 03/11/2024 US Renal and Bladder 03/18/2024 XR Elbow 3 Views Right 11/04/2024 CBC AUTO DIFF 10/19/2022 MAGNESIUM 10/04/2024 PROF 14(COMP METB) 10/19/2022 SED RATE WESTERGREN 10/19/2022 US KIDNEYS BLADDER 10/30/2024 XR CHEST 2 V 01/31/2024 XR ELBOW RT MIN 3 VIEWS 11/04/2024 THYROID PANEL (T4/TSH/FREE T3) OCCULT BLOOD X 1, STOOL 10/14/2024 PSA, SCREENING 10/14/2024 CMP (COMP MET ELDER) w/eGFR CKD-EPI 2024 CBC WITH DIFF 10/14/2024 Insurance Providers Payer Name Payer Address Payer Phone Subscriber Number Group Number Insured Name Patient Relationship to Insured Coverage Start Date Coverage End Date MEDICAID [place] [employer] ONLY [address] [place], [place] [id number] Olegario Donald Self - patient is the insured [employer] [place] [employer] [address] [place] [address] [id number] Olegario Donald Self - patient is the insured Medications Administered Medication Instructions Date of Administration Dosage Notes Kenalog-40 08/30/2022 120 mg 120 mh Kenalog-40 02/17/2023 120 mg 120 Ketorolac Tromethamine 08/30/2022 60 mg 60 mg Ketorolac Tromethamine 02/17/2023 60 mg 60 Ketorolac Tromethamine 02/22/2023 60 mg Ketorolac Tromethamine 03/01/2023 60 mg Ketorolac Tromethamine 05/11/2023 60 mg 60 Ketorolac Tromethamine 01/31/2024 60 mg Ketorolac Tromethamine 03/08/2024 30 mg Ketorolac Tromethamine 11/04/2024 60 mg Orphenadrine Citrate 03/08/2024 60 mg Orphenadrine Citrate 11/04/2024 60 mg Medical (General) History Medical History History ICD Code Over weight E66.3 Acute sinusitis J01.90 Obstructive uropathy N13.9 Kidney stones N20.0 Vertigo, peripheral H81.399 Knee pain, right M25.561 Snoring R06.83 Encounter for routine adult health exami [facility] Z00.00 Surgical History Surgery Date(Month/Year) Broken Nose- years ago kidney stent 08/2022 Chondroplasty, Lateral relea se, Mini Arthrotomy w/excision of Asgood-Schlatter ossicle 03/13/2023 Hospitalization History Reason Date(Month/Year) Low WBC, Low folic acid- head pains 2023 kidney stone 08/2022
== END 2024-11-08 09:20 | disposition home or self-care (01) ==
LOC: US 09:19
PROVIDERS: PCP Family Medicine; Visit Provider Family Medicine
DX: N28.9 Disorder of kidney and ureter, unspecified (principal)
CPT/HCPCS: 76770

== ENCOUNTER 2024-12-03 11:41 | Outpatient (RCR) | payer OTHER, SELFPAY ==
[2024-12-03 12:06] LABS: Anion Gap 10.0; Blood Urea Nitrogen 13.0 mg/dL (7.0-18.0); Calcium 9.6 mg/dL (8.5-10.1); Carbon Dioxide 30.6 mmol/L (21.0-32.0); Chloride 102 mmol/L (98-107); Estimated GFR (African America >60 (>=60 mL/min/1.73m^2); Estimated GFR (Non-African Ame >60 (>=60 mL/min/1.73m^2); Glucose 95 mg/dL (74-106); Magnesium 2.1 mg/dL (1.8-2.4); Potassium 3.6 mmol/L (3.5-5.1); Sodium 139 mmol/L (136-145)
[2024-12-10 10:37] LABS: Anion Gap 11.4; Blood Urea Nitrogen 16.0 mg/dL (7.0-18.0); Calcium 9.2 mg/dL (8.5-10.1); Carbon Dioxide 26.4 mmol/L (21.0-32.0); Chloride 104 mmol/L (98-107); Estimated GFR (African America >60 (>=60 mL/min/1.73m^2); Estimated GFR (Non-African Ame >60 (>=60 mL/min/1.73m^2); Glucose 110 mg/dL (74-106); Magnesium 2.1 mg/dL (1.8-2.4); Potassium 3.8 mmol/L (3.5-5.1); Sodium 138 mmol/L (136-145)
[2024-12-18 10:43] LABS: Anion Gap 10.0; Blood Urea Nitrogen 11.0 mg/dL (7.0-18.0); Calcium 9.0 mg/dL (8.5-10.1); Carbon Dioxide 29.1 mmol/L (21.0-32.0); Chloride 104 mmol/L (98-107); Estimated GFR (African America >60 (>=60 mL/min/1.73m^2); Estimated GFR (Non-African Ame >60 (>=60 mL/min/1.73m^2); Glucose 107 mg/dL (74-106); Magnesium 1.9 mg/dL (1.8-2.4); Potassium 4.1 mmol/L (3.5-5.1); Sodium 139 mmol/L (136-145)
[2024-12-24 12:19] LABS: Anion Gap 11.7; Blood Urea Nitrogen 11.0 mg/dL (7.0-18.0); Calcium 8.8 mg/dL (8.5-10.1); Carbon Dioxide 29.4 mmol/L (21.0-32.0); Chloride 104 mmol/L (98-107); Estimated GFR (African America >60 (>=60 mL/min/1.73m^2); Estimated GFR (Non-African Ame >60 (>=60 mL/min/1.73m^2); Glucose 88 mg/dL (74-106); Magnesium 2.1 mg/dL (1.8-2.4); Potassium 4.1 mmol/L (3.5-5.1); Sodium 141 mmol/L (136-145)
== END 2024-12-28 23:59 | disposition home or self-care (01) ==
LOC: LAB 11:41
PROVIDERS: PCP Family Medicine; Visit Provider Family Medicine
DX: R55 Syncope and collapse (principal)
CPT/HCPCS: 36415; 80048; 83735

== ENCOUNTER 2025-01-15 13:36 | Outpatient (OUT) | payer OTHER, SELFPAY ==
--- OUTSIDE RECORDS SUMMARY | 2025-01-15 13:39 | XMS_ITS | Encounter Summary ---
Author Organization [facility] Address [id number] [address] [place] [address] Care Team Providers Care Party Plan Sales Host/Hostess Name Role Phone Jc Guzman MD Primary Care Provider [phone] Encounter Details Date Type Department Care Team (Late st Contact Info) Description 04/05/2024 Orders Only [facility] [address] [place] [address] External, Scanning Provider Social History [...] ECG ORDERABLES Final Result Performing Organization Address [facility] de Phone Number MANUALLY TRANSCRIBED RESULTS * Multiple labs (04/05/2024 3:06 PM EST) us Scanning Provider External CO IMAGING Final Result Performing Organization Address [facility] de Phone Number MANUALLY TRANSCRIBED RESULTS documented in this encounter Visit Diagnoses Not on filedocumented in this encounter Additional Health Concerns Assessment Noted Time PHQ-9 Depression Total Score: 0 03/26/20 24 9:17 AM EST documented as of this encounter Care Teams Party Plan Sales Host/Hostess Relationship Specialty Start Date End Date Jc Guzman MD PCP - General 09/15/17 documented as of this encounter
--- OUTSIDE RECORDS SUMMARY | 2025-01-15 13:40 | XMS_ITS | Patient Health Record ---
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 Problem 635269250 Closed dislocation of right patella, initial encounter (S83.004A) Active confirmed Problem 8860994270 Right knee pain, unspecified chronicity (M25.561) Active confirmed Problem 401469782 Preoperative testing (Z01.818) Active confirmed Problem Encounter for other orthopedic aftercare (Z47.89) Active confirmed Problem 38064188 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 confirmed Plan Of Treatment Pending Test Test Name Order Date MRI : Knee W/O Contrast Right - 11805 Crutches OTS 02/16/2023 BMP 02/16/2023 CBC with diff 02/16/2023 [facility] - POST OP PT/OT - 12 VISITS 05/09/19 24 Insurance Providers Payer Name Payer Address Payer Phone Subscriber Number Group Number Insured Name Patient Relationship to Insured Coverage Start Date Coverage End Date Medicaid [employer] [place] [address] [place] [address] [id number] OLEGARIO DONALD Self - patient is the insured 3 Medical (General) History Medical History History ICD Code Mental Illness: Yes Kidney trouble Yes Drug Allergies: Yes Surgical History Surgery Date(Month/Year) Arthroscopic right knee with chondroplas ty 03/2023 Broken nose 1999 Hospitalization History Reason Date(Month/Year) Kidney stone 05/2022
--- OUTSIDE RECORDS SUMMARY | 2025-01-15 13:40 | XMS_ITS | Clinical Summary ---
Author Organization [facility] Address [id number] [address] [place] [address] Care Team Providers Care Coal Drier Operator Name Role Phone Jc Guzman MD Primary Care Provider [phone] Allergies Active Allergy Reactions Criticality Noted Date [...] for nausea or vomiting. 30 tablet 1 Active propranolol LA (INDERAL LA) 60 mg 24 hr capsuleIndicatio ns:Migraine without aura and without status migrainosus, not intractable Take 1 capsule (60 mg total) by mouth in the morning. 30 capsule 2 Active Active Problems Problem Noted Date Diagnosed Date Kidney stones 04/05/2024 Multiple personality disorder 04/05/2024 Ureteral stone 04/05/2024 Pancytopenia 02/28/2024 New onset seizure 02/26/2024 Resolved Problems Problem Noted Date Diagnosed Date Resolved Date Arthritis 04/05/2024 04/05/2024 Family History Medical History Relation Name Comments [...] on file Insurance [employer] Care Teams Coal Drier Operator Relationship Specialty Start Date End Date Jc Guzman MD PCP - General 09/15/17
--- OUTSIDE RECORDS SUMMARY | 2025-01-15 13:40 | XMS_ITS | Clinical Summary ---
Author Organization [facility] Address [address] [place] [address] Care Team Providers Care Roller Staker Name Role Phone Jc Guzman MD Primary Care Provider [phone] Keena Simmons MD Unavailable [phone] Social History Tobacco Use Types Packs/Day Years Used Date Smoking Tobacco: Never Assessed Sex and Gender Information Value Date Recorded Sex Assigned at Not on file Legal Sex Male 7:07 PM EDT Gender Identity Not on file Sexual Orientation Not on file Plan of Treatment Not on file Care Teams Roller Staker Relationship Specialty Start Date End Date Jc Guzman MD PCP - General Family Medicine 03/08/24 Keena Simmons MD [facility] [place] [address] Referring Physician Family Medicine 03/08/24
--- OUTSIDE RECORDS SUMMARY | 2025-01-15 13:40 | XMS_ITS | Patient Health Record ---
Author Organization [facility] in [place] Address [address] [place] [address] Care Team Providers Care Volleyball Assembler Name Role Phone Humberto Guzman Primary Care Provider Keena Simmons Unavailable [phone] Allergies Allergen (clinical drug ingredient) Drug/Non Drug Allergy documented on EMR Reaction Allergy Type Onset Date Status naproxen Naproxen stomach upset Drug Allergy Act brad Results Component Value Reference Range Notes CBC AUTO DIFF Reviewed date:03/07/2024 08:08:08 PM Interpretation: Performing Lab: Notes/Report: [facility] , White Blood Count 6.6 4.0-11.0 10 [...] 3/uL Performing Lab: see note ML - [facility] LB PROF 14(COMP METB) Reviewed date:03/07/2024 08:08:08 PM Interpretation: Performing Lab: Notes/Report: [facility] , Sodium 141 136-145 mmol/L Potassium 4.7 [...] Performing Lab: see note ML - [facility] LB XR chest 2V Reviewed date:01/31/2024 09:51:49 PM Interpretation: Performing Lab: Notes/Report: Source Facility: [facility] [place] [address] [address] XRay Report Signed Patient: OLEGARIO DONALD MR#: [id number] : 1990 Acct:[id number] Age/Sex: 33 / M ADM Date: 01/31/24 Loc: RAD Attending Dr: Latricia Guzman M.D. Ordering Physician: Latricia Guzman M.D. Date of Service: 01/31/24 Procedure(s): XR chest 2V Accession Number(s): [id number] cc: Latricia Guzman M.D. The [place] [address] Patient Name: OLEGARIO DONALD MRN: [id number] date: 1990 Sex: M Assigned Patient Location: RAD Current Patient Location: RAD Accession/Order Number: [id number] Exam Date: 01/31/2024 14:55 Report Date: 01/31/2024 [...] Dictated By: Faustino Crowley M.D. Signed By: 01/31/24 1523 DD/ 1520 TD/TT: Veneer Cutter: CBC AUTO DIFF Reviewed date:02/25/2024 08:53:17 PM Interpretation: Performing Lab: Notes/Report: [facility] , White Blood Count 3.8 4.0-11.0 10 [...] fL Performing Lab: see note ML - [facility] LB LACTATE or LACTIC ACID Reviewed date:02/25/2024 08:53:17 PM Interpretation: Performing Lab: Notes/Report: [facility] , Lactate/Lactic Acid 0.7 0.4-2.0 mmol/L Performing Lab: see note ML - [facility] LB MAGNESIUM Reviewed date:02/25/2024 08:53:17 PM Interpretation: Performing Lab: Notes/Report: [facility] , Magnesium 2.1 1.8-2.4 mg/dL Performing Lab: see note - [facility] LB PROF 14(COMP METB) Reviewed date:02/25/2024 08:53:17 PM Interpretation: Performing Lab: Notes/Report: [facility] , Sodium 137 136-145 mmol/L Potassium 3.5 [...] 0.9 Performing Lab: see note ML - [facility] LB Prothrombin Time INR Reviewed date:02/25/2024 08:53:17 PM Interpretation: Performing Lab: Notes/Report: [facility] , Prothrombin Time 11.5 9.0-11.6 sec INR 1.09 DESIRED INR: 2.0-3.0 CONDITIONS NOT LISTED BELOW 2.5-3.5 FOR PROSTHETIC HEART VALVE REPLACEMENT 2.5-3.5 RECURRENT THROMBOSIS Performing Lab: see note ML - [facility] LB Manual Differential Reviewed date:02/25/2024 08:53:17 PM Interpretation: Performing Lab: Notes/Report: [facility] , Segmented Neutrophils % Manual 76.0 43.0-75.0 [...] 3/uL Monocytes Absolute Manual 0.22 0.30-0.80 10 3/ uL Eosinophils Absolute Manual 0.00 0.00-0.70 10 3/uL Basophils Abs Manual 0.00 0.00-0.10 10 3/uL Performing Lab: see note ML - [facility] LB Troponin I High Sensitivity Reviewed date:02/25/2024 08:53:17 PM Interpretation: Performing Lab: Notes/Report: [facility] , Troponin I High Sensitivity 14.8 4.0-76.1 pg/m L CUT-OFF POINTS HAVE BEEN ESTABLISHED BASED ON THE FOURTH UNIVERSAL DEFINITION OF MYOCARDIAL INFARCTION. THE UPPER REFERENCE LIMIT (URL) OF TROPONIN, DEFINED THE 99TH PERCENTILE OF cTnI DISTRIBUTION IN A REFERENCE POPULATION, HAS BEEN CONFIRMED THE DECISION THRESHOLD FOR SC DIAGNOSIS. 99TH PERCENTILE = 76.2 PG/ML NOTE: HIGH-SENSITIVITY TROPONIN ASSAY IS NOT INTENDED TO BE USED IN ISOLATION BUT SHOULD BE INTERPRETED IN CONJUNCTION WITH OTHER DIAGNOSTIC AND CLINICAL INFORMATION. Performing Lab: see note ML - [facility] LB Ethanol Reviewed date:02/25/2024 08:53:17 PM Interpretation: Performing Lab: Notes/Report: [facility] , Ethanol <3 NOTE: 80 mg/dl is the legal limit for a blood alcohol level Performing Lab: see note ML - [facility] LB ECG 12 lead Reviewed date:02/28/2024 06:25:06 PM Interpretation: Performing Lab: Notes/Report: Source Facility: [place] [address] [place] [address] Electrocardiograph Report Signed Patient: OLEGARIO DONALD MR#: [id number] : 1990 Acct:[id number] Age/Sex: 33 / M ADM Date: 02/25/24 Loc: ER Attending Dr: Ordering Physician: Elva Finney Date of Service: 02/25/24 Procedure(s): ECG 12 lead Accession Number(s): [id number] cc: [facility] Test Date: 2024-02-25 Pat Name: OLEGARIO DONALD Department: Room: - Gender: Male Leadership Intern: : 1990 Requested By: LATRICIA GUZMAN Order Number: [id number] Reading MD: BLAYNE VALENCIA Measurements Intervals Pepin Rate: 97 P: 68 MI: 136 QRS: 84 QRSD: 100 T: 41 QT: 350 QTc: 405 Interpretive Statements 1100 Sinus rhythm 1570 with occasional ventricular premature complexes 9140 abnormal rhythm ECG Compared to ECG 10/12/2022 04:28:21 Ventricular premature complex(es) now present Electronically Signed On 02-27-2024 23:00:19 EDT by BLAYNE VALENCIA Dictated By: Blayne Valencia D.O. Signed By: 02/27/24 2300 DD/ 1035 TD/TT: Veneer Cutter: CT head/brain wo con Reviewed date:02/25/2024 08:53:17 PM Interpretation: Performing Lab: Notes/Report: Source Facility: [place] [address] [place] [address] CT Scan Report Signed Patient: OLEGARIO DONALD MR#: [id number] : 1990 Acct:[id number] Age/Sex: 33 / M ADM Date: 02/25/24 Loc: ER Attending Dr: Ordering Physician: Elva Finney Date of Service: 02/25/24 Procedure(s): CT head/brain wo con Accession Number(s): [id number] cc: Latricia Guzman M.D. [address] [address] Patient Name: OLEGARIO DONALD MRN: [id number] date: 1990 Sex: M Assigned Patient Location: ER Current Patient Location: ER Accession/Order Number: [id number] Exam Date: 02/25/2024 11:35 Report Date: 02/25/2024 [...] Signed By: 02/25/24 1208 DD/ 1205 TD/TT: Veneer Cutter: CT sinus wo con Reviewed date:02/25/2024 08:53:17 PM Interpretation: Performing Lab: Notes/Report: Source Facility: [place] [address] CT Scan Report Signed Patient: OLEGARIO DONALD MR#: [id number] : 1990 Acct:[id number] Age/Sex: 33 / M ADM Date: 02/25/24 Loc: ER Attending Dr: Ordering Physician: Elva Finney Date of Service: 02/25/24 Procedure(s): CT sinus wo con Accession Number(s): [id number] cc: Latricia Guzman M.D. [place] [address] Patient Name: OLEGARIO DONALD MRN: [id number] date: 1990 Sex: M Assigned Patient Location: ER Current Patient Location: ER Accession/Order Number: [id number] Exam Date: 02/25/2024 11:35 Report Date: 02/25/2024 [...] Talley M.D. Signed By: 02/25/24 1208 DD/ TD/TT: Veneer Cutter: FOLATE Reviewed date:03/04/2024 08:01:19 PM Interpretation: Performing Lab: Notes/Report: [facility] , Folate 5.70 8.60-58.90 ng/mL Performing Lab: see note - [facility] LB Vitamin B12 Reviewed date:03/05/2024 02:33:53 PM Interpretation: Performing Lab: Notes/Report: [facility] , Vitamin B12 499 716-8641 pg/mL Performed at: [facility] [address] [id number] Logistics Support: Justino Aragon PhD, Phone: [phone] Performing Lab: see note - [facility] LB CBC AUTO DIFF Reviewed date:03/12/2024 06:37:51 PM Interpretation: Performing Lab: Notes/Report: [facility] , White Blood Count 7.3 4.0-11.0 [...] 3/uL Performing Lab: see note ML - [facility] LB PROF 14(COMP METB) Reviewed date:03/12/2024 06:37:51 PM Interpretation: Performing Lab: Notes/Report: [facility] , Sodium 139 136-145 mmol/L Potassium 4.7 [...] Performing Lab: see note ML - [facility] LB FERRITIN Reviewed date:03/18/2024 01:04:34 PM Interpretation: Performing Lab: Notes/Report: [facility] , Ferritin 514.0 26.0-388.0 ng/mL Performing Lab: see note - [facility] LB IRON Reviewed date:03/18/2024 01:04:34 PM Interpretation: Performing Lab: Notes/Report: [facility] , Iron 76.0 65.0-175.0 ug/dL Performing Lab: see note ML - [facility] US renal bladder Reviewed date:03/23/2024 10:18:41 AM Interpretation: Performing Lab: Notes/Report: Source Facility: [place] [address] Ultrasound Report Signed Patient: OLEGARIO DONALD MR#: [id number] : 1990 Acct:[id number] Age/Sex: 33 / M ADM Date: 03/21/24 Loc: US Attending Dr: Latricia Guzman M.D. Ordering Physician: Latricia Guzman M.D. Date of Service: 03/21/24 Procedure(s): US renal bladder Accession Number(s): [id number] cc: Latricia Guzman M.D. [place] [address] Patient Name: OLEGARIO DONALD MRN: [id number] date: 1990 Sex: M Assigned Patient Location: Current Patient Location: Accession/Order Number: [id number] Exam Date: 03/21/2024 07:28 Report Date: 03/22/2024 [...] Dictated By: Silver Tariq M.D. Signed By: 03/22/2400 DD/ 0557 TD/TT: Veneer Cutter: CBC AUTO DIFF Reviewed date:03/25/2024 02:32:52 PM Interpretation: Performing Lab: Notes/Report: [facility] , White Blood Count 4.8 4.0-11.0 10 [...] Performing Lab: see note ML - [facility] LB CBC AUTO DIFF Reviewed date:04/01/2024 01:47:50 PM Interpretation: Performing Lab: Notes/Report: [facility] , White Blood Count 5.4 4.0-11.0 10 [...] 10 3/uL Performing Lab: see note - [facility] LB PROF 14(COMP METB) Reviewed date:04/01/2024 01:47:50 PM Interpretation: Performing Lab: Notes/Report: [facility] , Sodium 141 136-145 mmol/L Potassium 4.1 [...] 1.1 Performing Lab: see note ML - [facility] LB ECG 12 lead Reviewed date:04/02/2024 08:53:16 PM Interpretation: Performing Lab: Notes/Report: Source Facility: [place] [address] Electrocardiograph Report Signed Patient: OLEGARIO DONALD MR#: [id number] : 1990 Acct:[id number] Age/Sex: 33 / M ADM Date: 04/01/24 Loc: ER Attending Dr: Ordering Physician: Alvin Penaloza M.D. Date of Service: 04/01/24 Procedure(s): ECG 12 lead Accession Number(s): [id number] cc: [facility] Test Date: 2024-04-01 Pat Name: OLEGARIO DONALD Department: Room: - Gender: Male Leadership Intern: : 1990 Requested By: LATRICIA GUZMAN Order Number: [id number] Reading MD: LATRICIA GUZMAN Measurements Intervals Pepin Rate: 97 P: 90 MI: 128 QRS: 78 QRSD: 100 T: 16 [...] Signed By: 04/02/24 0639 DD/ 2342 TD/TT: Veneer Cutter: LACTATE or LACTIC ACID Reviewed date:04/02/2024 08:53:16 PM Interpretation: Performing Lab: Notes/Report: [facility] , Lactate/Lactic Acid 1.9 0.4-2.0 mmol/L Performing Lab: see note ML - [facility] LB MAGNESIUM Reviewed date:04/02/2024 08:53:16 PM Interpretation: Performing Lab: Notes/Report: [facility] , Magnesium 2.0 1.8-2.4 mg/dL Performing Lab: see note ML - [facility] LB PROF CHEM 8 (BAS METB) Reviewed date:04/02/2024 08:53:16 PM Interpretation: Performing Lab: Notes/Report: [facility] , Sodium 138 136-145 mmol/L Potassium 4.2 [...] mg/dL Performing Lab: see note ML - [facility] LB CBC AUTO DIFF Reviewed date:04/08/2024 12:45:31 PM Interpretation: Performing Lab: Notes/Report: [facility] , White Blood Count 8.4 4.0-11.0 10 [...] 10 3/uL Performing Lab: see note - [facility] LB IRON Reviewed date:04/08/2024 12:46:08 PM Interpretation: Performing Lab: Notes/Report: [facility] , Iron 84.0 65.0-175.0 ug/dL Performing Lab: see note - [facility] LB CBC AUTO DIFF Reviewed date:04/10/2024 07:56:41 PM Interpretation: Performing Lab: Notes/Report: [facility] , White Blood Count 8.8 4.0-11.0 10 [...] Performing Lab: see note ML - [facility] LB DRUG SCREEN RAPID (URINE) Reviewed date:04/10/2024 07:56:41 PM Interpretation: Performing Lab: Notes/Report: [facility] , Cannabinoid Screen Urine POSITIVE NEGATIVE Phencyclidine [...] Performing Lab: see note ML - [facility] PROF 14(COMP METB) Reviewed date:04/10/2024 07:56:41 PM Interpretation: Performing Lab: Notes/Report: [facility] , Sodium 139 136-145 mmol/L Potassium 3.5 3.5-5.1 mmol/L Chloride 105 98-107 mmol/L Carbon Dioxide 24.4 21.0-32.0 mmol/L Anion Gap 13.1 Glucose 114 74-106 mg/dL Blood Urea Nitrogen 17.0 7.0-18.0 mg/dL Creatinine 1.44 0.70-1.30 mg/dL Estimated GFR ( Anu >60 [...] Performing Lab: see note ML - [facility] Troponin I High Sensitivity Reviewed date:04/10/2024 07:56:41 PM Interpretation: Performing Lab: Notes/Report: [facility] , Troponin I High Sensitivity 4.1 4.0-76.1 pg/m L CUT-OFF POINTS HAVE BEEN ESTABLISHED BASED ON THE FOURTH UNIVERSAL DEFINITION OF MYOCARDIAL INFARCTION. THE UPPER REFERENCE LIMIT (URL) OF TROPONIN, DEFINED THE 99TH PERCENTILE OF cTnI DISTRIBUTION IN A REFERENCE POPULATION, HAS BEEN CONFIRMED THE DECISION THRESHOLD FOR SC DIAGNOSIS. 99TH PERCENTILE = 76.2 PG/ML NOTE: HIGH-SENSITIVITY TROPONIN ASSAY IS NOT INTENDED TO BE USED IN ISOLATION BUT SHOULD BE INTERPRETED IN CONJUNCTION WITH OTHER DIAGNOSTIC AND CLINICAL INFORMATION. Performing Lab: see note ML - [facility] LB Ethanol Reviewed date:04/10/2024 07:56:41 PM Interpretation: Performing Lab: Notes/Report: [facility] , Ethanol <3 NOTE: 80 mg/dl is the legal limit for a blood alcohol level Performing Lab: see note ML - [facility] LB ECG 12 lead Reviewed date:04/11/2024 06:46:41 PM Interpretation: Performing Lab: Notes/Report: Source Facility: [facility] [place] [address] [place] [address] Electrocardiograph Report Signed Patient: OLEGARIO DONALD MR#: [id number] : 1990 Acct:[id number] Age/Sex: 33 / M ADM Date: 04/10/24 Loc: ER Attending Dr: Ordering Physician: Manuelito Leone M.D. Date of Service: 04/10/24 Procedure(s): ECG 12 lead Accession Number(s): [id number] cc: [facility] Test Date: 2024-04-10 Pat Name: OLEGARIO DONALD Department: Room: - Gender: Male Leadership Intern: : 1990 Requested By: [id number] Order Number: [id number] Reading MD: LATRICIA GUZMAN Measurements Intervals Pepin Rate: 71 P: 54 MI: 138 QRS: 86 QRSD: 104 T: 28 QT: 382 QTc: 404 Interpretive Statements 1100 Sinus rhythm 9110 normal ECG Compared to ECG 04/01/2024 23:42:23 No significant changes Electronically Signed On 04-11-2024 8:03:14 EST by LATRICIA GUZMAN Dictated By: Latricia Guzman M.D. Signed By: 04/11/24 0803 DD/ 0042 TD/TT: Veneer Cutter: CBC AUTO DIFF Reviewed date:04/14/2024 08:22:13 PM Interpretation: Performing Lab: Notes/Report: [facility] , White Blood Count 6.2 4.0-11.0 [...] 3/uL Performing Lab: see note ML - [facility] LB FERRITIN Reviewed date:04/17/2024 04:09:53 PM Interpretation: Performing Lab: Notes/Report: [facility] , Ferritin 200.0 26.0-388.0 ng/mL Performing Lab: see note ML - [facility] LB CBC AUTO DIFF Reviewed date:04/25/2024 07:59:21 PM Interpretation: Performing Lab: Notes/Report: [facility] , White Blood Count 5.3 4.0-11.0 10 [...] 3/uL Performing Lab: see note ML - [facility] LB FERRITIN Reviewed date:04/25/2024 07:59:21 PM Interpretation: Performing Lab: Notes/Report: [facility] , Ferritin 171.0 26.0-388.0 ng/mL Performing Lab: see note ML - [facility] LB IRON Reviewed date:04/25/2024 07:59:21 PM Interpretation: Performing Lab: Notes/Report: [facility] , Iron 70.0 65.0-175.0 ug/dL Performing Lab: see note ML - [facility] LB PROF 14(COMP METB) Reviewed date:04/25/2024 07:59:21 PM Interpretation: Performing Lab: Notes/Report: [facility] , Sodium 142 136-145 mmol/L Potassium 3.9 [...] Performing Lab: see note ML - [facility] LB CBC AUTO DIFF Reviewed date:05/05/2024 08:32:06 PM Interpretation: Performing Lab: Notes/Report: [facility] , White Blood Count 6.7 4.0-11.0 10 [...] Performing Lab: see note ML - [facility] LB PROF CHEM 8 (BAS METB) Reviewed date:05/05/2024 08:32:06 PM Interpretation: Performing Lab: Notes/Report: [facility] , Sodium 141 136-145 mmol/L Potassium 3.4 [...] Performing Lab: see note ML - [facility] Troponin I High Sensitivity Reviewed date:05/05/2024 08:32:06 PM Interpretation: Performing Lab: Notes/Report: [facility] , Troponin I High Sensitivity 6.3 4.0-76.1 pg/m L CUT-OFF POINTS HAVE BEEN ESTABLISHED BASED ON THE FOURTH UNIVERSAL DEFINITION OF MYOCARDIAL INFARCTION. THE UPPER REFERENCE LIMIT (URL) OF TROPONIN, DEFINED THE 99TH PERCENTILE OF cTnI DISTRIBUTION IN A REFERENCE POPULATION, HAS BEEN CONFIRMED THE DECISION THRESHOLD FOR SC DIAGNOSIS. 99TH PERCENTILE = 76.2 PG/ML NOTE: HIGH-SENSITIVITY TROPONIN ASSAY IS NOT INTENDED TO BE USED IN ISOLATION BUT SHOULD BE INTERPRETED IN CONJUNCTION WITH OTHER DIAGNOSTIC AND CLINICAL INFORMATION. Performing Lab: see note ML - [facility] LB ECG 12 lead Reviewed date:05/06/2024 08:33:42 PM Interpretation: Performing Lab: Notes/Report: Source Facility: [facility] [place] [address] [place] [address] Electrocardiograph Report Signed Patient: OLEGARIO DONALD MR#: [id number] : 1990 Acct:[id number] Age/Sex: 33 / M ADM Date: 05/03/24 Loc: ER Attending Dr: Ordering Physician: Kirk Lynch Date of Service: 05/03/24 Procedure(s): ECG 12 lead Accession Number(s): [id number] cc: [facility] Test Date: 2024-05-03 Pat Name: OLEGARIO DONALD Department: Room: - Gender: Male Leadership Intern: : 1990 Requested By: LATRICIA GUZMAN Order Number: [id number] Reading MD: BLAYNE VALENCIA Measurements Intervals Pepin Rate: 56 P: 44 MI: 142 QRS: 76 QRSD: 104 T: 41 QT: 416 QTc: 407 Interpretive Statements 1100 Sinus rhythm 1470 with occasional supraventricular premature complexes 2440 Incomplete right bundle branch block 9140 abnormal rhythm ECG Compared to ECG 04/10/2024 00:42:36 Incomplete right bundle-branch block now present Electronically Signed On 05-06-2024 20:18:16 EST by BLAYNE VALENCIA Dictated By: Blayne Valencia D.O. Signed By: 05/06/242017 DD/ 51 TD/TT: Veneer Cutter: CA echo doppler complete Reviewed date:09/17/2024 08:31:28 PM Interpretation: Performing Lab: Notes/Report: Source Facility: [place] [address] Cardiology Report Signed Patient: OLEGARIO DONALD MR#: [id number] : 1990 Acct:[id number] Age/Sex: 34 / M ADM Date: 09/17/24 Loc: CARD Attending Dr: Latricia Guzman M.D. Ordering Physician: Latricia Guzman M.D. Date of Service: 09/17/24 Procedure(s): CA echo doppler complete Accession Number(s): [id number] cc: Latricia Guzman M.D. Patient Name: OLEGARIO DONALD MR#: [id number] : 1990 Exam Date: 09/17/2024 Ordering Doctor: [...] Signed By: 09/17/24 1554 DD/ 1553 TD/TT: Veneer Cutter: [place] T3 Reviewed date:10/15/2024 04:44:02 PM Interpretation: Performing Lab: Notes/Report: [facility] , Free T3 2.78 2.18-3.98 pg/mL Performing Lab: see note ML - [facility] LB INSULIN Reviewed date:10/16/2024 05:38:54 PM Interpretation: Performing Lab: Notes/Report: [facility] , Insulin 7.5 2.6-24.9 uIU/mL Performed at: - [facility] [address] [id number] Logistics Support: Justino Aragon PhD, Phone: [phone] Performing Lab: see note - [facility] LB LIPID PROFILE Reviewed date:10/15/2024 04:44:02 PM Interpretation: Performing Lab: Notes/Report: [facility] , Triglycerides 101 <=150 mg/dL Cholesterol 191 [...] >11.0 HIGH RISK Performing Lab: see note ML - [facility] LB MAGNESIUM Reviewed date:10/15/2024 04:44:02 PM Interpretation: Performing Lab: Notes/Report: [facility] , Magnesium 2.1 1.8-2.4 mg/dL Performing Lab: see note - [facility] LB PROF 14(COMP METB) Reviewed date:10/15/2024 04:44:02 PM Interpretation: Performing Lab: Notes/Report: [facility] , Sodium 138 136-145 mmol/L Potassium 3.2 [...] 1.2 Performing Lab: see note ML - [facility] LB PSA SCREENING Reviewed date:10/15/2024 04:44:03 PM Interpretation: Performing Lab: Notes/Report: [facility] , Prostate Specific Antigen Scrn 0.88 <=4.00 ng/mL Performing Lab: see note ML - [facility] LB T4 Reviewed date:10/15/2024 04:44:03 PM Interpretation: Performing Lab: Notes/Report: [facility] , T4 Thyroxine 8.80 4.50-12.10 ug/dL Performing Lab: see note ML - [facility] LB TSH Reviewed date:10/15/2024 04:44:03 PM Interpretation: Performing Lab: Notes/Report: [facility] , Thyroid Stimulating Hormone 1.099 0.358-3.740 u IU/mL Performing Lab: see note ML - [facility] LB MAGNESIUM Reviewed date:10/23/2024 09:30:31 PM Interpretation: Performing Lab: Notes/Report: [facility] , Magnesium 2.1 1.8-2.4 mg/dL Performing Lab: see note ML - [facility] PROF CHEM 8 (BAS METB) Reviewed date:10/23/2024 09:30:31 PM Interpretation: Performing Lab: Notes/Report: [facility] , Sodium 139 136-145 mmol/L Potassium 3.5 [...] Performing Lab: see note ML - [facility] LB MAGNESIUM Reviewed date:10/30/2024 07:22:51 PM Interpretation: Performing Lab: Notes/Report: [facility] , Magnesium 2.2 1.8-2.4 mg/dL Performing Lab: see note ML - [facility] LB PROF CHEM 8 (BAS METB) Reviewed date:10/30/2024 07:22:51 PM Interpretation: Performing Lab: Notes/Report: [facility] , Sodium 143 136-145 mmol/L Potassium 3.3 [...] Performing Lab: see note ML - [facility] LB XR elbow APOORVA min 3v Reviewed date:11/04/2024 08:26:28 PM Interpretation: Performing Lab: Notes/Report: Source Facility: [facility] [place] [address] [place] [address] XRay Report Signed Patient: OLEGARIO DONALD MR#: [id number] : 1990 Acct:[id number] Age/Sex: 34 / M ADM Date: 11/04/24 Loc: [facility] Attending Dr: Latricia Guzman M.D. Ordering Physician: Latricia Guzman M.D. Date of Service: 11/04/24 Procedure(s): XR elbow APOORVA min 3v Accession Number(s): [id number] cc: Latricia Guzman M.D. [place] [address] Patient Name: OLEGARIO DONALD MRN: [id number] date: 1990 Sex: M Assigned Patient Location: [facility] Current Patient Location: RAD Accession/Order Number: [id number] Exam Date: 11/04/2024 16:05 Report Date: 11/04/2024 [...] Cm M.D. 11/04/2024 4:09 PM Dictation Location: [facility] [employer] Electronically authenticated by: [id number] Y Date: 11/04/2024 16:09 Dictated By: Kirk Cm D.O. Signed By: 11/04/24 1612 DD/ 1609 TD/TT: Veneer Cutter: MAGNESIUM Reviewed date:11/06/2024 12:53:15 PM Interpretation: Performing Lab: Notes/Report: [facility] , Magnesium 2.1 1.8-2.4 mg/dL Performing Lab: see note ML - [facility] PROF CHEM 8 (BAS METB) Reviewed date:11/06/2024 12:53:15 PM Interpretation: Performing Lab: Notes/Report: [facility] , Sodium 144 136-145 mmol/L Potassium 3.2 [...] mg/dL Performing Lab: see note ML - [facility] US renal bladder Reviewed date:11/10/2024 04:19:11 PM Interpretation: Performing Lab: Notes/Report: Source Facility: [facility] [place] [address] [address] Ultrasound Report Signed Patient: OLEGARIO DONALD MR#: [id number] : 1990 Acct:[id number] Age/Sex: 34 / M ADM Date: 11/08/24 Loc: US Attending Dr: Latricia Guzman M.D. Ordering Physician: Latricia Guzman M.D. Date of Service: 11/08/24 Procedure(s): US renal bladder Accession Number(s): [id number] cc: Latricia Guzman M.D. [address] [address] Patient Name: OLEGARIO DONALD MRN: [id number] date: 1990 Sex: M Assigned Patient Location: US Current Patient Location: US Accession/Order Number: [id number] Exam Date: 11/08/2024 10:39 Report Date: 11/08/2024 10:45 At the request of: LATRICIA GUZMAN MD Procedure: US renal bladder BILATERAL RENAL AND BLADDER ULTRASOUND CLINICAL HISTORY: Abnormal Renal Function. Frequent urination and history of kidney stones COMPARISON: 03/21/[address] 02/25/2024 Estimation of renal size is approximately 10.0 cm on the right and 9.7 cm on the left. Echogenic foci are visualized at the medullary portion of the left kidney measuring up to 7 mm in size at the upper pole. They might be stones. No hydronephrosis is seen. No renal mass lesions were imaged. There is no perinephric fluid. The urinary bladder is partially distended with a volume of 561 mL. No contour or intraluminal abnormalities are seen. Bilateral ureteral jets are visualized. There is no significant post void bladder residual. US/US renal bladder IMPRESSION: POSSIBLE LEFT NEPHROLITHIASIS. NO OBSTRUCTIVE UROPATHY. Impression dictated by: Liz García M.D. 11/08/2024 10:45 AM Dictation Location: [place] [address] Electronically authenticated by: [id number] Y Date: 11/08/2024 10:45 Dictated By: Liz García M.D. Signed By: 11/08/24 1047 DD/ 1045 TD/TT: Veneer Cutter: MAGNESIUM Reviewed date:11/20/2024 01:03:55 PM Interpretation: Performing Lab: Notes/Report: [facility] , Magnesium 2.0 1.8-2.4 mg/dL Performing Lab: see note ML - [facility] LB PROF CHEM 8 ([facility] MET) Reviewed date:11/20/2024 01:03:55 PM Interpretation: Performing Lab: Notes/Report: [facility] , Sodium 139 136-145 mmol/L Potassium 3.4 3.5-5.1 mmol/L Chloride 100 98-107 mmol/L Carbon Dioxide 30.4 21.0-32.0 mmol/L Anion Gap 12.0 Glucose 84 74-106 mg/dL Blood Urea Nitrogen 11.0 7.0-18.0 mg/dL Creatinine 1.21 0.70-1.30 mg/dL Estimated GFR ( Anu >60 >=60 mL/min/1.73m 2 Estimated GFR (Non- Ally >60 >=60 mL/min/1.73m 2 BUN Creatinine Ratio 9.1 Calcium 9.3 8.5-10.1 mg/dL Performing Lab: see note ML - [facility] LB MAGNESIUM Reviewed date:11/26/2024 02:44:52 PM Interpretation: Performing Lab: Notes/Report: [facility] , Magnesium 2.1 1.8-2.4 mg/dL Performing Lab: see note ML - [facility] LB PROF CHEM 8 ([facility] MET) Reviewed date:11/26/2024 02:44:52 PM Interpretation: Performing Lab: Notes/Report: [facility] , Sodium 138 136-145 mmol/L Potassium 3.3 3.5-5.1 mmol/L Chloride 101 98-107 mmol/L Carbon Dioxide 26.2 21.0-32.0 mmol/L Anion Gap 14.1 Glucose 95 74-106 mg/dL Blood Urea Nitrogen 11.0 7.0-18.0 mg/dL Creatinine 1.10 0.70-1.30 mg/dL Estimated GFR ( Anu >60 >=60 mL/min/1.73m 2 Estimated GFR (Non- Ally >60 >=60 mL/min/1.73m 2 BUN Creatinine Ratio 10.0 Calcium 9.3 8.5-10.1 mg/dL Performing Lab: see note ML - [facility] MAGNESIUM Reviewed date:12/03/2024 02:53:09 PM Interpretation: Performing Lab: Notes/Report: [facility] , Magnesium 2.1 1.8-2.4 mg/dL Performing Lab: see note ML - [facility] PROF CHEM 8 (BAS METB) Reviewed date:12/03/2024 02:53:09 PM Interpretation: Performing Lab: Notes/Report: [facility] , Sodium 139 136-145 mmol/L Potassium 3.6 3.5-5.1 mmol/L Chloride 102 98-107 mmol/L Carbon Dioxide 30.6 21.0-32.0 mmol/L Anion Gap 10.0 Glucose 95 74-106 mg/dL Blood Urea Nitrogen 13.0 7.0-18.0 mg/dL Creatinine 1.27 0.70-1.30 mg/dL Estimated GFR ( Anu >60 >=60 mL/min/1.73m 2 Estimated GFR (Non- Ally >60 >=60 mL/min/1.73m 2 BUN Creatinine Ratio 10.2 Calcium 9.6 8.5-10.1 mg/dL Performing Lab: see note ML - [facility] LB MAGNESIUM Reviewed date:12/10/2024 08:17:36 PM Interpretation: Performing Lab: Notes/Report: [facility] , Magnesium 2.1 1.8-2.4 mg/dL Performing Lab: see note ML - [facility] PROF CHEM 8 (BAS METB) Reviewed date:12/10/2024 08:17:36 PM Interpretation: Performing Lab: Notes/Report: [facility] , Sodium 138 136-145 mmol/L Potassium 3.8 3.5-5.1 mmol/L Chloride 104 98-107 mmol/L Carbon Dioxide 26.4 21.0-32.0 mmol/L Anion Gap 11.4 Glucose 110 74-106 mg/dL Blood Urea Nitrogen 16.0 7.0-18.0 mg/dL Creatinine 1.19 0.70-1.30 mg/dL Estimated GFR ( Anu >60 >=60 mL/min/1.73m 2 Estimated GFR (Non- Ally >60 >=60 mL/min/1.73m 2 BUN Creatinine Ratio 13.4 Calcium 9.2 8.5-10.1 mg/dL Performing Lab: see note ML - [facility] MAGNESIUM Reviewed date:12/18/2024 01:02:00 PM Interpretation: Performing Lab: Notes/Report: [facility] , Magnesium 1.9 1.8-2.4 mg/dL Performing Lab: see note ML - [facility] PROF CHEM 8 (BAS METB) Reviewed date:12/18/2024 01:02:00 PM Interpretation: Performing Lab: Notes/Report: [facility] , Sodium 139 136-145 mmol/L Potassium 4.1 3.5-5.1 mmol/L Chloride 104 98-107 mmol/L Carbon Dioxide 29.1 21.0-32.0 mmol/L Anion Gap 10.0 Glucose 107 74-106 mg/dL Blood Urea Nitrogen 11.0 7.0-18.0 mg/dL Creatinine 1.35 0.70-1.30 mg/dL Estimated GFR ( Anu >60 >=60 mL/min/1.73m 2 Estimated GFR (Non- Ally >60 >=60 mL/min/1.73m 2 BUN Creatinine Ratio 8.1 Calcium 9.0 8.5-10.1 mg/dL Performing Lab: see note ML - [facility] MAGNESIUM Reviewed date:12/24/2024 08:25:59 PM Interpretation: Performing Lab: Notes/Report: [facility] , Magnesium 2.1 1.8-2.4 mg/dL Performing Lab: see note ML - [facility] PROF CHEM 8 (BAS METB) Reviewed date:12/24/2024 08:25:59 PM Interpretation: Performing Lab: Notes/Report: [facility] , Sodium 141 136-145 mmol/L Potassium 4.1 3.5-5.1 mmol/L Chloride 104 98-107 mmol/L Carbon Dioxide 29.4 21.0-32.0 mmol/L Anion Gap 11.7 Glucose 88 74-106 mg/dL Blood Urea Nitrogen 11.0 7.0-18.0 mg/dL Creatinine 1.31 0.70-1.30 mg/dL Estimated GFR ( Anu >60 >=60 mL/min/1.73m 2 Estimated GFR (Non- Ally >60 >=60 mL/min/1.73m 2 BUN Creatinine Ratio 8.4 Calcium 8.8 8.5-10.1 mg/dL Performing Lab: see note ML - [facility] LB Occult Blood* Reviewed date:11/07/2024 06:55:29 PM Interpretation: Performing Lab: Notes/Report: [facility] , Occult Blood Negative Performing Lab: see note ML - [facility] LB GLYCOHEMOGLOBIN A1C Reviewed date:10/15/2024 04:44:02 PM Interpretation: Performing Lab: Notes/Report: [facility] , Glycohemoglobin A1C 5.2 4.5-6.2 % ADA RECOMMENDED LIMIT 4.0 - 6.0 ADA THERAPEUTIC TARGET < 7.0 ACTION SUGGESTED > 7.0 Estimated Average Glucose 103 Performing Lab: see note - [facility] CBC AUTO DIFF Reviewed date:10/15/2024 04:44:02 PM Interpretation: Performing Lab: Notes/Report: [facility] , White Blood Count 7.2 4.0-11.0 10 [...] 3/uL Performing Lab: see note ML - [facility] LB PROF 14(COMP METB) Reviewed date:04/29/2024 08:37:25 PM Interpretation: Performing Lab: Notes/Report: [facility] , Sodium 141 136-145 mmol/L Potassium 4.4 [...] 1.3 Performing Lab: see note ML - [facility] IRON Reviewed date:04/29/2024 08:37:25 PM Interpretation: Performing Lab: Notes/Report: [facility] , Iron 73.0 65.0-175.0 ug/dL Performing Lab: see note ML - [facility] FERRITIN Reviewed date:04/29/2024 08:37:25 PM Interpretation: Performing Lab: Notes/Report: [facility] , Ferritin 178.0 26.0-388.0 ng/mL Performing Lab: see note ML - [facility] CBC AUTO DIFF Reviewed date:04/29/2024 08:37:25 PM Interpretation: Performing Lab: Notes/Report: [facility] , White Blood Count 6.6 4.0-11.0 10 [...] Performing Lab: see note ML - [facility] LB PROF 14(COMP METB) Reviewed date:04/17/2024 04:09:53 PM Interpretation: Performing Lab: Notes/Report: [facility] , Sodium 140 136-145 mmol/L Potassium 3.8 [...] Performing Lab: see note ML - [facility] LB IRON Reviewed date:04/17/2024 04:09:53 PM Interpretation: Performing Lab: Notes/Report: [facility] , Iron 96.0 65.0-175.0 ug/dL Performing Lab: see note ML - [facility] LB CBC AUTO DIFF Reviewed date:04/17/2024 04:09:53 PM Interpretation: Performing Lab: Notes/Report: [facility] , White Blood Count 7.3 4.0-11.0 [...] 10 3/uL Performing Lab: see note - [facility] LB PROF 14(COMP METB) Reviewed date:04/14/2024 08:22:13 PM Interpretation: Performing Lab: Notes/Report: [facility] , Sodium 138 136-145 mmol/L Potassium 3.6 [...] 1.2 Performing Lab: see note ML - [facility] LB Occult Blood* Reviewed date:04/09/2024 08:38:06 PM Interpretation: Performing Lab: Notes/Report: [facility] , Occult Blood Negative Performing Lab: see note - [facility] PROF 14(COMP METB) Reviewed date:04/08/2024 12:45:31 PM Interpretation: Performing Lab: Notes/Report: [facility] , Sodium 138 136-145 mmol/L Potassium 3.9 [...] 1.3 Performing Lab: see note ML - [facility] LB FERRITIN Reviewed date:04/08/2024 08:20:11 PM Interpretation: Performing Lab: Notes/Report: [facility] , Ferritin 165.0 26.0-388.0 ng/mL Performing Lab: see note ML - [facility] LB IRON Reviewed date:04/01/2024 01:47:50 PM Interpretation: Performing Lab: Notes/Report: [facility] , Iron 85.0 65.0-175.0 ug/dL Performing Lab: see note ML - [facility] LB FERRITIN Reviewed date:04/01/2024 01:47:50 PM Interpretation: Performing Lab: Notes/Report: [facility] , Ferritin 200.0 26.0-388.0 ng/mL Performing Lab: see note ML - [facility] LB PROF 14(COMP METB) Reviewed date:03/25/2024 02:32:52 PM Interpretation: Performing Lab: Notes/Report: [facility] , Sodium 141 136-145 mmol/L Potassium 4.3 [...] 1.1 Performing Lab: see note ML - [facility] IRON Reviewed date:03/25/2024 02:32:52 PM Interpretation: Performing Lab: Notes/Report: [facility] , Iron 88.0 65.0-175.0 ug/dL Performing Lab: see note ML - [facility] LB FERRITIN Reviewed date:03/25/2024 02:32:52 PM Interpretation: Performing Lab: Notes/Report: [facility] , Ferritin 319.0 26.0-388.0 ng/mL Performing Lab: see note ML - [facility] PROF CHEM 8 ([facility]A KNIGHT) Reviewed date:03/21/2024 02:55:56 PM Interpretation: Performing Lab: Notes/Report: [facility] , Sodium 140 136-145 mmol/L Potassium 3.9 [...] mg/dL Performing Lab: see note ML - [facility] MR head/brain wo/w con Reviewed date:03/20/2024 08:35:02 PM Interpretation: Performing Lab: Notes/Report: Source Facility: [place] [address] [place] [address] Magnetic Resonance Report Signed Patient: OLEGARIO DONALD MR#: [id number] : 1990 Acct:[id number] Age/Sex: 33 / M ADM Date: 03/20/24 Loc: MRI Attending Dr: Latricia Guzman M.D. Ordering Physician: Latricia Guzman M.D. Date of Service: 03/20/24 Procedure(s): MR head/brain wo/w con Accession Number(s): [id number] cc: Latricia Guzman M.D. [place] [address] Patient Name: OLEGARIO DONALD MRN: [id number] date: 1990 Sex: M Assigned Patient Location: MRI Current Patient Location: MRI Accession/Order Number: [id number] Exam Date: 03/20/2024 12:45 Report Date: 03/20/2024 15:57 At the request of: LTARICIA GUZMAN Procedure: MR head/brain wo/w con EXAM: [...] MCCLELLAND M.D. Signed By: 03/20/24 1559 DD/ 56 TD/TT: Veneer Cutter: PROF Sofia(COMP METB) Reviewed date:03/18/2024 01:04:34 PM Interpretation: Performing Lab: Notes/Report: [facility] , Sodium 139 136-145 mmol/L Potassium 4.3 [...] 1.0 Performing Lab: see note ML - [facility] LB CBC AUTO DIFF Reviewed date:03/18/2024 01:04:34 PM Interpretation: Performing Lab: Notes/Report: [facility] , White Blood Count 4.2 4.0-11.0 10 [...] 3/uL Performing Lab: see note ML - [facility] LB ECG 12 lead Reviewed date:03/09/2024 04:04:01 PM Interpretation: Performing Lab: Notes/Report: Source Facility: [place] [address] Electrocardiograph Report Signed Patient: OLEGARIO DONALD MR#: [id number] : 1990 Acct:[id number] Age/Sex: 33 / M ADM Date: 03/07/24 Loc: ER Attending Dr: Ordering Physician: Rayna Gordon D.O. Date of Service: 03/07/24 Procedure(s): ECG 12 lead Accession Number(s): [id number] cc: [facility] Test Date: 2024-03-07 Pat Name: OLEGARIO DONALD Department: Room: - Gender: Male Leadership Intern: : 1990 Requested By: LATRICIA GUZMAN Order Number: [id number] Reading MD: LATRICIA GUZMAN Measurements Intervals [place] Rate: 68 P: 46 MI: 142 QRS: 76 QRSD: 90 T: 40 QT: 378 QTc: 396 Interpretive Statements 1100 Sinus rhythm 1102 Sinus arrhythmia 9110 normal ECG Compared to ECG 02/25/2024 10:35:15 Ventricular premature complex(es) no longer present Electronically Signed On 03-08-2024 6:01:28 EST by LATRICIA GUZMAN Dictated By: Latricia Guzman M.D. Signed By: 03/08/24 0601 DD/ 1001 TD/TT: Veneer Cutter: Troponin I High Sensitivity Reviewed date:03/07/2024 08:08:08 PM Interpretation: Performing Lab: Notes/Report: [facility] , Troponin I High Sensitivity 6.1 4.0-76.1 pg/m L CUT-OFF POINTS HAVE BEEN ESTABLISHED BASED ON THE FOURTH UNIVERSAL DEFINITION OF MYOCARDIAL INFARCTION. THE UPPER REFERENCE LIMIT (URL) OF TROPONIN, DEFINED THE 99TH PERCENTILE OF cTnI DISTRIBUTION IN A REFERENCE POPULATION, HAS BEEN CONFIRMED THE DECISION THRESHOLD FOR SC DIAGNOSIS. 99TH PERCENTILE = 76.2 PG/ML NOTE: HIGH-SENSITIVITY TROPONIN ASSAY IS NOT INTENDED TO BE USED IN ISOLATION BUT SHOULD BE INTERPRETED IN CONJUNCTION WITH OTHER DIAGNOSTIC AND CLINICAL INFORMATION. Performing Lab: see note ML - [facility] LB MAGNESIUM Reviewed date:03/07/2024 08:08:08 PM Interpretation: Performing Lab: Notes/Report: [facility] , Magnesium 2.1 1.8-2.4 mg/dL Performing Lab: see note ML - [facility] LB Manual Differential Reviewed date:03/04/2024 08:01:19 PM Interpretation: Performing Lab: Notes/Report: [facility] , Segmented Neutrophils % Manual 50.0 43.0-75.0 [...] 3/uL Monocytes Absolute Manual 0.23 0.30-0.80 10 3/ uL Eosinophils Absolute Manual 0.13 0.00-0.70 10 3/uL Basophils Abs Manual 0.06 0.00-0.10 10 3/uL Performing Lab: see note - [facility] LB CBC AUTO DIFF Reviewed date:03/04/2024 08:01:19 PM Interpretation: Performing Lab: Notes/Report: [facility] , White Blood Count 3.4 4.0-11.0 10 [...] 10.5 9.5-13.5 fL Performing Lab: see note - [facility] LB FSGLU Reviewed date:02/26/2024 10:03:20 PM Interpretation: Performing Lab: Notes/Report: Glucose, Whole Blood 105 74-100 mg/dL CT abdomen pelvis wo con Reviewed date:02/25/2024 08:53:17 PM Interpretation: Performing Lab: Notes/Report: Source Facility: [place] [address] [place] [address] CT Scan Report Signed Patient: OLEGARIO DONALD MR#: [id number] : 1990 Acct:[id number] Age/Sex: 33 / M ADM Date: 02/25/24 Loc: ER Attending Dr: Ordering Physician: Elva Finney Date of Service: 02/25/24 Procedure(s): CT abdomen pelvis wo con Accession Number(s): [id number] cc: Latricia Guzman M.D. [place] [id number] Patient Name: OLEGARIO DONADL MRN: [id number] date: 1990 Sex: M Assigned Patient Location: ER Current Patient Location: Accession/Order Number: [id number] Exam Date: 02/25/2024 11:35 Report Date: 02/25/2024 [...] Signed By: 02/25/24 1316 DD/ 1313 TD/TT: Veneer Cutter: CT abdomen pelvis wo con Reviewed date:02/12/2024 08:16:23 PM Interpretation: Performing Lab: Notes/Report: Source Facility: [facility] [place] [address] [place] [address] CT Scan Report Signed Patient: OLEGARIO DONALD MR#: [id number] : 1990 Acct:[id number] Age/Sex: 33 / M ADM Date: 02/11/24 Loc: ER Attending Dr: Ordering Physician: Roxi Estes M.D. Date of Service: 02/11/24 Procedure(s): CT abdomen pelvis wo con Accession Number(s): [id number] cc: Latricia Guzman M.D. [place] [address] Patient Name: OLEGARIO DONALD MRN: [id number] date: 1990 Sex: M Assigned Patient Location: ER Current Patient Location: ER Accession/Order Number: [id number] Exam Date: 02/11/2024 23:04 Report Date: 02/12/2024 [...] M.D. Signed By: 02/12/24117 DD/ 4 TD/TT: Veneer Cutter: UA RANDOM W or MICROSCOPIC Reviewed date:02/12/2024 08:16:23 PM Interpretation: Performing Lab: Notes/Report: [facility] , Color Urine LT. YELLOW YELLOW Clarity Urine CLEAR CLEAR Specific [place] Urine 1.020 1.005-1.025 pH Urine 6.0 5.0-9.0 [...] Performing Lab: see note ML - [facility] LB XR cervical spine 2-3V Reviewed date:11/04/2024 08:26:28 PM Interpretation: Performing Lab: Notes/Report: Source Facility: [facility] [place] [address] [place] [address] XRay Report Signed Patient: OLEGARIO DONALD MR#: [id number] : 1990 Acct:[id number] Age/Sex: 34 / M ADM Date: 11/04/24 Loc: RAD Attending Dr: Latricia Guzman M.D. Ordering Physician: Latricia Guzman M.D. Date of Service: 11/04/24 Procedure(s): XR cervical spine 2-3V Accession Number(s): [id number] cc: Latricia Guzman M.D. [place] [address] Patient Name: OLEGARIO DONALD MRN: [id number] date: 1990 Sex: M Assigned Patient Location: [facility] Current Patient Location: [facility] Accession/Order Number: [id number] Exam Date: 11/04/2024 16:05 Report Date: 11/04/2024 [...] Cm M.D. 11/04/2024 4:09 PM Dictation Location: [place] [address] Electronically authenticated by: [id number] Y Date: 11/04/2024 16:09 Dictated By: Kirk Cm D.O. Signed By: 11/04/24 1611 DD/ 1609 TD/TT: Veneer Cutter: [id number], Flu A+B IH Reviewed date:02/25/2024 08:53:17 PM Interpretation: Performing Lab: Notes/Report: COVID neg FLU A neg FLU B neg Control present Reason For Referral Reason seizure like activit y, intractable headache since Diagnosis 1 Migraine (G43.909) Diagnosis 2 Seizure (R56.9) Referral Organization [facility] Referring Provider First Name Keena Referring Provider Last Name Troy Referring Provider [facility] Referred Provider Hayley Suárez Referred Provider Specialty Neurology Referral Priority Routine Diagnosis 1 Seizure (R56.9) Referral Organization [facility] Referring Provider First Name Humberto Referring Provider Last Name [facility] Referred Provider Specialty Neurology Referral Priority Routine Diagnosis 1 Nevus (D22.9) Referral Organization [facility] Referring Provider First Name Humberto Referring Provider Last Name Thomas Referring Provider Special[facility] Referred Provider Gaston Oh Referred Provider Specialty General Surg colleen Referral Priority Routine Diagnosis 1 Abnormal renal funct ion (N28.9) Referral Organization [facility] Referring Provider First Name Humberto Referring Provider Last Name Thomas Referring Provider [facility] Referred Provider Isidro Zepeda Referred Provider Specialty Nephrology Referral Priority Routine Medications Medication SIG (Take, Route, Frequency, Duration) Notes Start Date End Date Status Hyoscyamine Sulfate 0.125 MG 1-2 tabs SL SL every 4 hrs PRN abd pain 01/15/2025 Active Excedrin Migraine PRN Ac tive Ondansetron 4 MG 1 tablet on the tong ue and allow to dissolve Orally Once a day; Duration: 30 days PRN 01/31/2024 Active Fludrocortisone Acetate 0.1 mg TAKE 2 TABLETS BY MOUTH ONCE DAILY FOR 30 DAYS; Duration: 30 days Active Nurtec 75 MG 1 tablet on the tong ue and allow to dissolve Orally daily as needed; Duration: 30 days 03/11/2024 Active LaMICtal 25 MG 3 tablets Orally onc e a day; Duration: 90 days 09/19/2024 Active Sodium Chloride Acti ve Social History Tobacco Use: Social History Observation [...] Answer Notes Did you have a drink contain ing alcohol in the past year? Yes How often did you have a dri nk containing alcohol in the past year? Never (0 point) How many drinks did you have on a typical day when you were drinking in the past year? 1 or 2 drinks (0 point) How often did you have six o r more drinks on one occasion in the past year? Less than monthly (1 point) Points 1 Interpretation Negative Problems Problem Type SNOMED Code ICD Code Onset Dates Problem Status W/U Status Risk Notes Problem Candidiasis of mouth (81825401) Candidal stomatitis (B37.0) Active confirmed Problem Anemia (484607921) Anemia, unspecified (D64.9) Active confirmed Problem Varicose veins of lower extremity (29409649) Asymptomatic varicose veins of unspecified lower extremity (I83.90) Active confirmed Problem Peripheral venous insufficiency (07798722) Venous insufficiency (chronic) (peripheral) (I87.2) Active confirmed Problem Chondromalacia (42044252) Chondromalacia, unspecified site (M94.20) Active confirmed Problem Chondromalacia (86292088) Chondromalacia, 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 Problem Snoring (93573022) Snoring (R06.83) Active conf irmed Problem Neck pain (83635551) Neck pain (M54.2) Active confirmed Problem Syncope (652854022) Syncope (R55) Active confirmed Problem Migraine (73777231) Migraine (G43.909) Active confirmed Problem Acute sinusitis (84101741) Acute sinusitis (J01.90) Active confirmed Problem Kidney stone (97375878) Kidney stones (N20.0) Active confirmed Problem Pain of right knee region (finding) (338521452111847) Knee pain, right (M25.561) Active confirmed Problem Well adult (478138998) Well adult (Z00.00) Active confirmed Problem Leg pain (48679296) Leg pain (M79.606) Active confirmed Problem Obstructive uropathy (9894154) Obstructive uropathy (N13.9) Active confirmed Problem Memory loss (76840649) Memory loss (R41.3) Active confirmed Problem Overweight (570984428) Over weight (E66.3) Active confirmed Problem Neutropenia (326431198) Neutropenia (D70.9) Active confirmed Problem Nevus (3323556431) Nevus (D22.9) Active confirm ed Problem Elbow pain (84718693) Elbow pain (M25.529) Active confirmed Problem Seizure (87677939) Seizure (R56.9) Active confi rmed Problem Adult health examination (948746813) Encounter for routine adult health examination (Z00.00) Active confirmed Problem Peripheral vertigo (96656277) Vertigo, peripheral (H81.399) Active confirmed Problem 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) (9303225791103393) Juvenile osteochondrosis of tibia tubercle, 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 Vital Signs Temperature 99.0 degrees Fahrenheit 02/22/2024 Blood pressure diastolic 82 mm Hg 01/15/2025 Height 69 in 01/15/2025 Blood pressure systolic 142 mm Hg 01/15/2025 Weight 214.0 lbs 01/15/2025 BMI 31.6 kg/m2 01/15/2025 Procedures Procedure Date Ordered Date Performed Result Body Sit e Sleep study - Diagnostic Polysonogram 02/22/2024 N/A CARDIO Echocardiogram 08/19/2024 N/A TILT TABLE EVALUATION 09/17/2024 N/A Encounters Encounter Location Date Provider Diagnosis [address] [address] 01/31/2024 Humberto Hoy Snoring R06.83 and Chest wall pain R07.[address] [address] 02/22/2024 Humberto Hoy Lethargy R53.83 and Body aches R52 [address] [address] 09/19/2024 Humberto Hoy Syncope R55 and Migraine G43.[address] [address] 10/14/2024 Humberto Hoy Well adult Z00.00 [address] [address] [address] 11/04/2024 Humberto Hoy Neck pain M54.2 and Elbow pain M25.[address] [address] 03/08/2024 Keena Troy Migraine G43.909 and Seizure R56.[address] [address] 03/14/2024 Humberto Eloycarlos Over weight E66.3 an d Seizure R56.9 [facility] [address] [facility] [place] [address] 08/19/2024 Humberto Hoy Nevus D22.9 ; Orthostatic dizziness R42 and Migraine G43.909 [facility] [address] [facility] [place] [address] 01/15/2025 Humberto Hoy Syncope R55 [facility] [address] [facility] [place] [address] 03/05/2024 Humberto Hoy Seizure R56.9 and Neutropenia D70.9 [facility] [address] [facility] [place] [address] 06/25/2024 Humberto Hoy Seizure R56.9 ; Migraine G43.909 and Syncope R55 [facility] [address] [facility] [place] [address] 01/31/2024 Humberto Eloyy [facility] [address] [facility] [place] [address] 03/04/2024 Humberto Eloyy [facility] [address] [facility] [place] [address] 03/05/2024 Humberto Thomas [facility] [address] [facility] [place] [address] 03/06/2024 Humberto Eloyy [facility] [address] [facility] [place] [address] 03/07/2024 Humberto Eloyy [facility] [address] [facility] [place] [address] 03/11/2024 Keena Troy [facility] [address] [facility] [place] [address] 03/11/2024 Humberto Lyonsy Memory loss R41.3 an d Tremor of right hand R25.1 [facility] [address] [facility] [place] [address] 03/11/2024 Humberto Guzman [facility] [address] [facility] [place] [address] 03/15/2024 Humberto Lyonsy Over weight E66.3 [facility] [address] [facility] [place] [address] 03/18/2024 Humberto Hoy Seizure R56.9 and Memory loss R41.3 [facility] [address] [facility] [place] [address] 03/18/2024 Humberto Guzman Abnormal renal function N28.9 [facility] [address] [facility] [place] [address] 03/20/2024 [facility]umberto Guzman [facility] [address] [facility] [place] [address] 03/22/2024 Humberto Guzman [facility] [address] [facility] [place] [address] 03/23/2024 Humberto Guzman [facility] [address] [facility] [address] 03/25/2024 Humberto Guzman [facility] [address] [facility] [place] [address] 03/25/2024 Humberto Guzman [facility] [address] [facility] [place] [address] 03/25/2024 Humberto Guzman [facility] [address] [facility] [place] [address] 03/26/2024 Humberto Guzman [facility] [address] [facility] [place] [address] 04/01/2024 Humberto Lyonsy Anemia, unspecified D64.9 [facility] [address] [facility] [place] [address] 04/02/2024 Humberto Guzman [facility] [address] [facility] [place] [address] 04/08/2024 Humberto Guzman [facility] [address] [facility] [place] [address] 04/15/2024 Humberto Guzman [facility] [address] [facility] [place] [address] 04/17/2024 Humberto Guzman [facility] [address] [place] [address] 04/25/2024 Humberto Guzman [facility] [address] [place] [address] 04/29/2024 Humberto Thomas [facility] [address] [place] [address] 07/01/2024 Humberto Hoy Seizure R56.9 [facility] [address] [place] [address] 07/08/2024 Humberto Hoy Seizure R56.9 [facility] [address] [place] [address] 07/17/2024 Humberto Guzman [facility] [address] [place] [address] 07/25/2024 Humberto Lyonsy Snoring R06.83 [facility] [address] [facility] [place] [address] 08/02/2024 Humberto Guzman [facility] [address] [facility] [place] [address] 08/20/2024 Humberto Guzman [facility] [address] [facility] [place] [address] 08/28/2024 Humberto Lyonsy [facility] [address] [place] [address] 08/29/2024 Humberto Guzman [facility] [address] [place] [address] 09/03/2024 Humberto Guzman [facility] [address] [place] [address] 09/12/2024 Humberto Guzman [facility] [address] [place] [address] 09/17/2024 Humberto Hoy Syncope R55 [facility] [address] [place] [address] 09/17/2024 Humberto Guzman [facility] [address] [place] [address] 09/19/2024 Humberto Guzman [facility] [address] [facility] [place] [address] 09/20/2024 Humberto Guzman [facility] [address] [facility] [place] [address] 10/01/2024 Humberto Hoy Syncope R55 and Snoring R06.83 [facility] [address] [facility] [place] [address] 10/04/2024 Humberto Hoy Syncope R55 [facility] [address] [facility] [place] [address] 10/15/2024 Humberto Thomas [facility] [address] [facility] [place] [address] 10/30/2024 Humberto Guzman Abnormal renal function N28.9 [facility] [address] [facility] [place] [address] 11/04/2024 Humberto Guzman [facility] [address] [facility] [place] [address] 11/06/2024 Humberto Guzman [facility] [address] [facility] [place] [address] 11/10/2024 Humberto Guzman [facility] [address] [facility] [place] [address] 11/20/2024 Humberto Guzman [facility] [address] [facility] [place] [address] 11/25/2024 Humberto Guzman [facility] [address] [facility] [place] [address] 11/26/2024 Humberto Lyonsy [facility] [address] [facility] [place] [address] 11/27/2024 Humberto Hoy Syncope R55 and Seizure R56.9 [facility] [address] [facility] [place] [address] 12/03/2024 Humberto Guzman [facility] [address] [facility] [place] [address] 12/10/2024 Humberto Hoy Syncope R55 [facility] [address] [facility] [place] [address] 12/18/2024 Humberto carlos [facility] [address] [place] [address] 12/24/2024 Humberto carlos [facility] [address] [place] [address] 11/20/2024 Humberto Guzman Migraine G43.909 Assessments Encounter Date Diagnosis (ICD [...] M54.2) 11/04/2024 Elbow pain (ICD-10 - M25.529) 11/20/2024 Migraine (ICD-10 - G43.909) 01/15/2025 Syncope (ICD-10 - R55) 03/11/2024 Memory loss (ICD-10 - R41.3) 03/11/2024 [...] with jason propranolol but near syncope worse 10/04/2024 Syncope (ICD-10 - R55) 10/30/2024 Abnormal renal function (ICD-10 - N28.9) 11/27/2024 Syncope (ICD-10 - R55) 11/27/2024 Seizure (ICD-10 - R56.9) 12/10/2024 Syncope (ICD-10 - R55) 08/19/2024 Nevus (ICD-10 - D22.9) 08/19/2024 Orthostatic dizziness (ICD-10 - R42) 08/19/2024 Migraine (ICD-10 - G43.909) 06/25/2024 Syncope [...] Panel 03/18/2024 Basic Metabolic Panel (8) 10/04/2024 MRI Brain w/o Contrast 11/27/2024 CT Brain w/o Contrast 11/04/2024 MRI Brain w/ + w/o Contrast 03/11/2024 US Renal and Bladder 03/18/2024 XR Elbow 3 Views Right 11/04/2024 AMMONIA 01/15/2025 CBC AUTO DIFF 01/15/2025 CBC AUTO DIFF 10/19/2022 LIPASE 01/15/2025 MAGNESIUM 10/04/2024 PROF 14(COMP METB) 01/15/2025 PROF 14(COMP METB) 10/19/2022 SED RATE WESTERGREN [...] PRIMARY ONLY [address] [place] [id number] Olegario Donald Self - patient is the insured [employer] [place] [employer] [address] [place] [address] [id number] Olegario Donald Self - patient is the [...] 30 mg Ketorolac Tromethamine 11/04/2024 60 mg Ketorolac Tromethamine 01/15/2025 60 mg Orphenadrine Citrate 03/08/2024 60 mg Orphenadrine Citrate 11/04/2024 60 mg Medical (General) History Medical History History ICD Code Over weight E66.3 Acute sinusitis J01.90 Obstructive uropathy N13.9 Kidney stones N20.0 Vertigo, peripheral H81.399 Knee pain, right M25.561 Snoring R06.83 Encounter for routine adult health exami [facility] Z00.00 Surgical History Surgery Date(Month/Year) Chondroplasty, Lateral relea se, 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
--- OUTSIDE RECORDS SUMMARY | 2025-01-15 13:40 | XMS_ITS | Clinical Summary ---
Author Organization [facility] Address [address], [address] [place] [address] Care Team Providers Care Certified Pharmacy Tech Name Role Phone Jc Guzman MD Primary Care Provider [phone] Allergies Active Allergy Reactions Criticality Noted Date [...] Date Pancytopenia 02/28/2024 New onset seizure 02/26/2024 Social History Tobacco Use Types Packs/Day Years Used Date Smoking Tobacco: Every Day Cigarettes Smokeless Tobacco: Former Tobacco Cessation:Ready to Q uit: Not Asked; Counseling Given: Not Answered Alcohol Use Standard Drinks/Week Comments Not Currently 0 (1 standard drink = 0.6 oz pur e alcohol) [facility] Utilities Answer Date Recorded In the past 12 months has th e [employer], gas, oil, or water [employer] threatened to shut off services in your [...] any time in the past 12 m [facility], were you homeless or living in a half-way (including now)? No 02/27/2024 Food Insecurity Answer [...] Vaccine (1 of 2 - PCV) 08/18/2011 Flu vaccine (#1) 11/29/2024 COVID-19 Vaccine ( season) 2024 Hepatitis B vaccine Completed 01/10/1994, 01/01/1993, 1992 Hib vaccine Completed 01/10/1994, 03/01, 01/01/1993, Additional history exists Polio vaccine Completed 12/26/1997, 12/30, 01/01/1993, Additional history exists HIV screen Completed 02/28/2024 HPV vaccine (No Doses Required) Completed Hepatitis A vaccine Aged Out No longe r eligible based on patient's age to complete this topic Meningococcal (ACWY) vaccine Aged Out No longer eligible based on patient's age to complete this topic Meningococcal B vaccine Aged Out No l onger eligible based on patient's age to complete this topic Procedures Procedure Name Priority Date/Time Associated Diagnosis Comments HIV SCREEN Routine 02/28/2024 12:02 PM EDT from Last 3 Months or Most Recently Relevant to Health Maintenance Results * HIV Screen (02/28/2024 12:02 PM EDT) HIV Ag/Ab SEE BELOW 02/29/2024 2:54 AM EDT [facility] [employer] Comment: HIV Ag/Ab NONREACTIVE NR No laboratory evidence of HIV infection. If acute HIV infection is suspected, consider testing for HIV-1 RNA. Performed at [facility], [address] [place] [address] [phone]. BLOOD SPECIMEN / Unknown 02/28/2024 12:02 PM EDT 02/28/2024 12:21 PM EDT us Chapis Rizvi MD IMMUNOLOGY ORDERABLES Final Res ult Performing Organization Address City/State/[facility] Co de Phone Number [facility] [address] [place] [address], [facility] [phone] [address], [facility] [phone] from Last 3 Months or Most Recently Relevant to Health Maintenance [place] [address] [place] [address] Advance Directives Documents on File Type Date Recorded Patient Toggle Press Operator Expl anation ACP-Advance Directive 03/05/2024 10:18 AM ACP-Advance Directive 02/29/2024 2:09 PM * Full Code (Latest Code Status on File) Date Activated Date Inactivated Comments 02/27/2024 12:32 AM 03/02/2024 5:23 PM Healthcare Agents on File Name Relationship Healthcare Agent Relationshi p Communication Daisy Aarujo Girlfriend Primary Decision Maker Hiren Rasheed Parent Secondary Decision Maker Care Teams Certified Pharmacy Tech Relationship Specialty Start Date End Date Jc Guzman MD [address] [place] [address] PCP - General Family Medicine 02/16/23
[2025-01-15 13:54] LABS: Hematocrit 49.6 % (42.0-54.0); Hemoglobin 17.1 g/dL (14.0-18.0); Immature Granulocytes Abs Auto 0.02 10^3/uL (0.00-0.03); Immature Granulocytes Pct Auto 0.2 % (0.0-0.5); Lymphocytes Absolute Auto 1.5 10^3/uL (1.2-3.8); Mean Corpuscular HGB Conc 34.5 g/dL (29.9-35.2); Mean Corpuscular Hemoglobin 31.4 pg (25.9-34.0); Mean Corpuscular Volume 91.2 fL (80.0-94.0); Platelet Count 253 10^3/uL (150-450); Red Blood Count 5.44 10^6/uL (4.70-6.10); White Blood Count 8.1 10^3/uL (4.0-11.0)
[2025-01-15 14:00] LABS: Ammonia <10 umol/L (11-32)
[2025-01-15 14:29] LABS: Alanine Aminotransferase 16 U/L (16-63); Albumin Globulin Ratio 1.2; Albumin Level 4.5 g/dL (3.4-5.0); Alkaline Phosphatase 97 U/L (46-116); Anion Gap 14.1; Aspartate Amino Transferase 18 U/L (15-37); Blood Urea Nitrogen 10.0 mg/dL (7.0-18.0); Calcium 9.2 mg/dL (8.5-10.1); Carbon Dioxide 25.7 mmol/L (21.0-32.0); Chloride 102 mmol/L (98-107); Estimated GFR (African America >60 (>=60 mL/min/1.73m^2); Estimated GFR (Non-African Ame 57 (>=60 mL/min/1.73m^2); Globulin 3.8 g/dL; Glucose 98 mg/dL (74-106); Lipase 40.0 U/L (16.0-77.0); Potassium 3.8 mmol/L (3.5-5.1); Sodium 138 mmol/L (136-145); Total Protein 8.3 g/dL (6.4-8.2)
== END 2025-01-15 13:37 | disposition home or self-care (01) ==
LOC: LAB 13:37
PROVIDERS: PCP Family Medicine; Visit Provider Family Medicine
DX: R55 Syncope and collapse (principal)
CPT/HCPCS: 36415; 80053; 82140; 83690; 85025

== ENCOUNTER 2025-01-22 11:41 | Outpatient (OUT) | payer OTHER, SELFPAY ==
--- OUTSIDE RECORDS SUMMARY | 2025-01-22 11:51 | XMS_ITS | CCD ---
Author Organization [facility] Care Team Providers Care Music Engineer Name Role Phone Latricia Garcia Primary Care Physician RADHA ., DR ROME Primary Care Unavailable RADHA ., DR ROME Consulting Unavailable RADHA ., DR ROME Admitting Unavailable RADHA ., DR ROME Attending Unavailable MAXIMO, DR SAUMYA Forrester Consulting Unavailable HORTENCIA, DR STEPAN Jerome Consulting Unavailable GATITO ., MR GUEVARA Consulting Unavailable CHAGO ROLLINS Consulting Unavailable ROSALINO VIDALES Consulting Unavailable EDIS HERNÁNDEZ Consulting Unavailable RAMO ZEPEDA Unavailable HANDY .SHIRLEY Consulting Unavailable JADA PEREIRA Consulting Unavailable MAUREEN GARDNER Consulting Unavailable HELGA BAINS Consulting Unavailable HANDY .SHIRLEY Admitting Unavailable HANDY .SHIRLEY Attending Unavailable RADHA [...] Care Unavailable ANGIE .VALDEZ Admitting Unavailable ANGIE .VALDEZ Attending Unavailable ANGIE ., VALDEZ Consulting Unavailable YNIG WALTON Consulting Unavailable RADHA Olivera, DR ROME Primary Care Unavailable BRUCE RAMIREZ Admitting Unavailable BRUCE RAMIREZ Attending Unavailable PANDA .LEORA Consulting UnavailMarcus Olivera, DR ROME Primary Care Unavailable SHANNON, DR MADDIE Forrester Admitting Unavailable SHANNON, DR MADDIE Forrester Attending Unavailable SHANNON, DR MADDIE Forrester Consulting Unavailable SHARON GODINEZ Consulting Unavailable Latricia Garcia MD Primary Care Provider [phone] KYM VIDAL Admitting Unavailable RUTH WYMAN Attending Unavailable DOLORES REYES Referring Unavailable RONDA HAWLEY Consulting Unavaila ble HOY, LATRICIA M Primary Care Unavailable Latricia Garcia MD Primary Care Provider [phone] HOY, LATRICIA M Referring Unavailable HOY, LATRICIA [...] GIRON Attending Unavailable Hoy, Latricia Referring Unavailable HOY, LATRICIA M Referring Unavailable HOY, LATRICIA M Primary Care Unavailable HOY, LATRICIA M Primary Care Unavailable DOLORES REYES Attending Unavailable Latricia Garcia MD Primary Care Provider [phone] Ashley Durand MD Attending Provider Allergies Allergy Classification Reported Allergen(s) Allergy Type Date of Onset Reaction(s) Facility (20 sources) Naproxen; Translations: [naproxen] Drug Allergy 3 Unknown (qualifier value), Nausea And Vomiting [facility] (1 source) Naproxen Drug Allergy [facility] Repository Medications Current Medications Medication Drug Class(es) Dates Sig (Normalized) Sig (Original) Acetaminophen (11 sources) Start: 02-27-2024 acetaminophen (TYLENOL) tablet 650 mg take 2 tablets by [facility] every six hours as needed for pain [...] every six hours as needed for headache tnrvixy-dwzkefinzeift-vlgpwymt (EXCEDRIN MIGRAINE) 250-250-65 mg per tablet Take [...] a CrCl celecoxib 200 mg oral capsule (7 sources) Nonsteroidal Anti-inflammatory Drug End : 4 take 1 capsule by mouth once daily celecoxib (CELEBREX) 200 MG capsule Take 1 capsule by mouth daily Active cephalexin 500 mg oral tablet (5 sources) Cephalosporin Antibacterial Sta rt: 4 End : 4 take 1 tablet by mouth at bedtime Cephalexin 500 MG TABS Take 500 mg by mouth in the morning and at bedtime 02/22/2024 Active Start: 05-12-2022 take 1 capsule by [facility] every twenty-four hours Keflex 500 mg Cap 500 mg = 1 cap(s), Oral, q24hr, Take 1 pill the day before the procedure and 1 pill after the procedure., # 2 cap(s), Refills(s) 0, Pharmacy: [id number] Start Date: 05/12/22 Status: Ordered 0.4 [...] to any invasive procedure., On hold since [facility] 02/29/2024 at 1050 until manually unheld ferrous sulfate 325 mg oral tablet (17 sources) Start: 03-02-2024 take 1 tablet by mouth once daily at breakfast ferrous sulfate (IRON 325) 325 (65 Fe) MG tablet Take 1 tablet by mouth daily (with breakfast) 30 tablet 1 03/02/2024 Active Start: 02-29-2024 ferrous sulfat e 325 (65 FE) mg tablet Take 1 tablet (325 mg total) by mouth. 03/02/2024 Active fludrocortisone acetate 0.1 mg oral tablet (3 sources) Start: 11-12-2024 take 1 tablet by mouth twice daily Fludrocortisone 0.1 mg tablet Active 0.1 MG PO Twice daily November 12, 2024 10:46am Complies with drug therapy Start: 11-12-2024 End: 11-12-2024 take 1 tablet by mouth three times daily Fludrocortisone 0.1 mg tablet Discontinued 0.1 MG PO Three times daily November 12, 2024 10:22am November 12, 2024 10:49am Start: 11-12-2024 End: 11-12-2024 take 1 tablet by mouth once daily Fludrocortisone 0.1 mg tablet Discontinued 0.3 MG PO Daily November 12, 2024 12:00am November 12, 2024 10:23am 1.5 ml fremanezumab-vfrm 150 mg/ml auto-injector (4 sources) Start: 06-12-2024 fremanezumab-vfrm (AJOVY AUTOINJECTOR) 225 mg/1.5 mL Indications: Migraine without aura and without status migrainosus, not intractable Inject 1.5 mL (225 mg total) under the skin every 28 days. 1.5 mL 5 06/12/2024 Active gabapentin 600 mg oral tablet (7 sources) Anti-epileptic Agent End: 04-19-2024 take 0.5 tablet by mouth twice daily gabapentin (NEURONTIN) 600 MG tablet Take 0.5 tablets by mouth 2 times daily. Active ketorolac tromethamine 10 mg oral tablet (7 sources) Nonsteroidal Anti-inflammatory Drug, Cyclooxygenase Inhibitor Start: [...] 5 days. lamoTRIgine 25 mg oral tablet (3 sources) Mood Stabilizer, Anti-epileptic Agent Start: 11-12-2024 End: 11-12-2024 take 1 tablet by mouth once daily Lamotrigine 25 mg tablet Active 25 MG PO Daily November 12, 2024 10:22am Complies with drug therapy Start: 03-15-2024 End: 03-26-2024 lamoTRIgine (LaMICtal) 25 mg tablet Take 1 tablet (25 mg total) by mouth. 03/15/2024 03/26/2024 Discontinued 1 ml LORazepam 2 mg/ml injection (1 source) Benzodiazepine Start: 02-27-2024 4 mg, IntraVENous, EVERY 5 MIN PRN, Starting on Mon02/27/24 at 0032, Until Discontinued, Seizures, May repeat dose (4 mg) X 1 for seizures lasting more than 5 minutes. Notify provider if administered for seizure. 24 hr nicotine 0.583 mg/hr transdermal system (5 sources) Cholinergic Nicotinic Agonist Start: 03-03-2024 apply 1 dose transdermal route once daily nicotine (NICODERM CQ) 14 MG/24HR Place 1 patch onto the skin daily 30 patch 1 03/03/2024 Active Start: 03-03-2024 End: 04-19-2024 apply 1 dose transdermal route every hour nicotine (NICODERM CQ) 14 mg/[address] 1 patch on the skin. 03/03/2024 04/19/2024 Discontinued Start: 02-27-2024 apply 1 dose transde rmal [...] disposal. ondansetron 4 mg disintegrating oral tablet (20 sources) Serotonin-3 Receptor Antagonist Start: 11-12-2024 End: 11-12-2024 take 1 tablet by mouth once daily as needed Ondansetron 4 mg tablet,disintegrating Active 4 MG PO Daily as needed November 12, 2024 10:22am Complies with drug therapy Start: 06-12-2024 take 1 tablet by benito th every eight hours as needed for nausea [...] 06/12/2024 Discontinued (Reorder) Start: 01-31-2024 End: 04-19-2024 take 1 tablet by mouth once daily [...] pantoprazole 20 mg delayed release oral tablet (14 sources) Proton Pump Inhibitor take 2 tablets by mouth once daily pantoprazole (PROTONIX) 20 MG tablet Take 2 tablets by mouth nightly Active polyethylene glycol 3350 81864 mg powder for oral solution (4 sources) Osmotic Laxative Start: 02-27-2024 End: 05-03-2024 polyethylene glycol (GLYCOLAX) 17 gram packet Take 17 g by mouth. 03/02/2024 05/03/2024 Active predniSONE 10 mg oral tablet (6 sources) [...] (Reorder) rimegepant 75 mg disintegrating oral tablet (15 sources) Start: 11-12-2024 Rimegepant (Nu rtec Odt) 75 mg tablet,disintegrating Active 75 MG PO Every 48 hours as needed November 12, 2024 12:00am Complies with drug therapy Start: 03-26-2024 rimegepant (NU RTEC ODT) 75 mg tablet,disintegrating Indications: Migraine without [...] DAILY amount FOUR TABLETS) 03/02/2024 04/19/2024 Discontinued cyclobenzaprine hydrochloride 10 mg oral tablet (2 sources) Muscle Relaxant Start: 02-27-2024 End: 02-27-2024 take 1 dose by mouth once 5 mg, Oral, ONCE, 1 dose, On Mon02/27/24 at 2100 Start: 07-21-2022 cyclobenzaprin e Oral Start Date: 3/23/23 Status: Ordered 2 ml fentaNYL 0.05 mg/ml [...] than 30ml/min, On hold since [facility] 02/29/2024 at 1438 until manually unheld methocarbamol [...] on 03/02/24 at 0930, Until Discontinued, Pain potassium chloride 10 meq extended release oral tablet (2 sources) Start: 11-12-2024 End: 11-12-2024 take 1 tablet by mouth twice daily Potassium Chloride 10 mEq tablet extended release Discontinued 10 MEQ PO Twice daily November 12, 2024 12:00am November 12, 2024 10:22am Start: 02-27-2024 potassium chlo ride (KLOR-CON M) extended release tablet 40 mEq rizatriptan 10 mg oral tablet (1 source) [...] Onset: 07-14-2022 Episodic Deficiency and other anemia (18 sources) Pancytopenia; Translations: [Other pancytopenia] Onset: 02-28-2024 03-02-2024 Chronic Deficiency and other anemia (2 sources) Other pancytopenia; Translations: [Other pancytopenia] Onset: 02-28-2024 Chronic Diseases of white blood cells (1 source) Elevated white blood cell count, unspecified; Translations: [ELEVATED WHITE BLOOD CELL COUNT UNS] Onset: 07-14-2022 Chronic Epilepsy; convulsions (20 sources) Seizure; Translations: [Unspecified convulsions] Onset: 02-26-2024 02-26-2024 Episodic Fluid and electrolyte disorders (3 sources) Dehydration; Translations: [Hypokalemia] Onset: 07-14-2022 11-12-2024 Episodic Headache; including migraine (11 sources) Migraine [...] in unspecified hip] Onset: 02-27-2024 Episodic Other screening for suspected conditions (not mental disorders or infectious disease) (2 sources) Serum creatinine raised; Translations: [Other specified abnormal findings of blood chemistry] 11-12-2024 Episodic Other upper respiratory infections (4 sources) [...] [Cannabis abuse, uncomplicated] Onset: 07-26-2022 Chronic Syncope (12 sources) Syncope symptom; Translations: [Syncope and collapse] Onset: 03-26-2024 05-17-2024 Episodic Unclassified (1 source) CONTACT W/AND (SUSP) EXPOS COVID-19; Translations: [CONTACT W/AND (SUSP) EXPOS COVID-19] Onset: 07-14-2022 Unclassified (1 source) New Patient Onset: 04-08-2024 Viral infection (2 sources) Herpes simplex 07-13-2022 Episodic Past or Other Problems Problem Classification Problem Date Documented Da te Episodic/Chronic Calculus of urinary tract (20 sources) Ureteric stone; Translations: [Calculus of ureter] Onset: 07-06-2022 Episodic Mood disorders (14 sources) Mood disorders Onset: 03-26-2024 03-26-2024 Osteoarthritis (13 sources) Arthritis; Translations: [Unspecified osteoarthritis, unspecified site] Onset: 04-05-2024 Resolved: 04-05-2024 07-13-2022 Chronic Results Test Name Value Interpretation Reference Range Facility Tilt tableOrdered By: Gilberto Hu mad on 09-30-2024 BP (Initial Tilt) 159/98 mmHg [facility] Work Phone: BP (Max BP) 159/98 mmHg [facility] Work Phone: BP (Max Heart Rate) 157/96 mmHg [facility] Work Phone: BP (Min BP) 134/91 mmHg [facility] Work Phone: BP (Min Heart Rate) 147/91 mmHg [facility] Work Phone: BP (Supine) 164/92 bpm [facility] Work Phone: Heart rate 70 /min bpm [facility] Work Phone: Heart rate 90 /min bpm [facility] Work Phone: Heart rate 80 /min bpm [facility] Work Phone: Minutes (Max BP) 1 [facility] Work Phone: Minutes (Max Heart Rate) 2 [facility] [employer] Work Phone: Minutes (Min BP) 4 [facility] Work Phone: Minutes (Min Heart Rate) 3 [facility] [employer] Work Phone: Rhythm (Initial Tilt) SR [facility] Work Phone: Rhythm (Max BP) SR [facility] Work Phone: Rhythm (Max Heart Rate) SR [facility] Work Phone: Rhythm (Min BP) SR [facility] Work Phone: Rhythm (Min Heart Rate) SR [facility] Work Phone: Rhythm (Supine) SR [facility] Work Phone: [facility] Work Phone: Tilt tableon 09-30-2024 Study Conclusions: Inconclusive head upright tilt table [...] with their primary care physician and/ or day care home provider as previously scheduled. [facility] CV CPACS STRESS Radiology Study observation (narrative) [facility] Vital signsOrdered By: Gilberto benoit on 09-30-2024 Heart rate 74 /min bpm [facility] [employer] Phone: Ambulatory Visit Summaryon 0 09-04-2024 Ambulatory Visit [...] for choosing us for your care. Normal [facility] Ambulatory EEGon 06-05-2024 Images from the original result were not included. [place] VIDEO-EEG REPORT EEG Service Date: 15:52 on [...] Ambulatory EEGOrdered By: Adi Collado on 06-05-2024 [facility] Work Phone: BASIC METABOLIC PANLon 04-11 Anion gap [Moles/Vol] 7 mmol/L Normal 5-15 [facility] Comment on above: Performed By: #### C BRIAN BMP, , 56175-3 #### [facility] ([id number]) [address] [place] [address] 47880 Calcium [Mass/Vol] 9.2 mg/dL Normal 8.5-10.5 [facility] Comment on above: Performed By: #### C BRIAN BMP, , 01692-5 #### [facility] ([id number]) [address] [place] [address] 42887 Chloride [Moles/Vol] 107 mmol/L Normal 98-109 [facility] Comment on above: Performed By: #### C BCA, BMP, , 56158-3 #### [facility] ([id number]) [address] [place] [address] 08535 CO2 [Moles/Vol] 23 mmol/L Normal 22-32 [facility] Comment on above: Performed By: #### C BCA BMP, , 98465-8 #### [facility] ([id number]) [address] [place] [address] 80150 Creatinine [Mass/Vol] 1.20 mg/dL Normal 0.70-1.20 [facility] Comment on above: Result Comment: METH OD TRACEABLE TO IDMS STANDARD Performed By: #### C WON TORRES, , 12695-0 #### [facility] ([id number]) [address] [place] [address] 84046 GFR/1.73 sq M.predicted among non-blacks MDRD (S/P/Bld) [Vol rate/Area] 83 mL/min/{1.73_m2} Normal >59 [facility] Comment on above: Result Comment: Reported eGFR is based on the CKD-EPI 2020 equation that does not use a race coefficient. Performed By: #### C WON TORRES, , 45166-2 #### [facility] ([id number]) [address] [place] [address] 75871 Glucose [Mass/Vol] 95 mg/dL Normal 65-99 [facility] Comment on above: Performed By: #### C WON TORRES, , 48821-1 #### [facility] ([id number]) [address] [place] [address] 37314 Potassium [Moles/Vol] 3.7 mmol/L Normal 3.5-5.0 [facility] Comment on above: Performed By: #### C WON TORRES, , 99511-0 #### [facility] ([id number]) [address] [place] [address] 27726 Sodium [Moles/Vol] 137 mmol/L Normal 134-146 [facility] Comment on above: Performed By: #### C WON TORRES, , 73803-4 #### [facility] ([id number]) [address] [place] [address] 62211 Urea nitrogen [Mass/Vol] 18 mg/dL Normal 5-23 [facility] Comment on above: Performed By: #### C BRIAN, BMP, , 57943-2 #### [facility] ([id number]) [address] [place] [address] 40765 CBC AND AUTO DIFFon 04-11-20 24 ABSOLUTE BASOPHIL 0.1 X10E9/L Normal 0.0-0.2 [facility] Comment on above: Performed By: #### C BRIAN, BMP, , 20867-1 #### [facility] ([id number]) [address] [place] [address] 12918 ABSOLUTE NEUTROPHIL 3.6 X10E9/L Normal 1.5-6.6 [facility] Comment on above: Performed By: #### C BRIAN, BMP, , 66465-4 #### [facility] ([id number]) [address] [place] [address] 14791 Basophils/100 WBC (Bld) 0.8 % Normal [facility] Comment on above: Performed By: #### C BRIAN, BMP, , 72271-7 #### [facility] ([id number]) [address] [place] [address] 03251 Eosinophils (Bld) [#/Vol] 0.2 10*3/uL Normal 0.0-0.4 [facility] Comment on above: Performed By: #### C BCA, BMP, , 40512-7 #### [facility] ([id number]) [address] [place] [address] 48160 Eosinophils/100 WBC (Bld) 2.3 % Normal [facility] Comment on above: Performed By: #### C BCA, BMP, , 87825-7 #### [facility] ([id number]) [address] [place] [address] 65142 Erythrocyte distribution width (RBC) [Ratio] 14.5 % Normal 11.5-15.0 [facility] Comment on above: Performed By: #### C WON TORRES, , 32130-8 #### [facility] ([id number]) [address] [place] [address] 28741 Hematocrit (Bld) [Volume fraction] 40.8 % Normal 39-49 [facility] Comment on above: Performed By: #### Irene TORRES [facility], , 81110-4 #### [facility] ([id number]) [address] [place] [address] 93045 Hemoglobin (Bld) [Mass/Vol] 14.0 g/dL Normal 13.0-17.0 [facility] Comment on above: Performed By: #### Irene TORRES [facility], , 83504-7 #### [facility] ([id number]) [address] [place] [address] 56647 Lymphocytes (Bld) [#/Vol] 2.3 10*3/uL Normal 1.0-3.5 [facility] Comment on above: Performed By: #### C BRIAN [facility], , 39636-1 #### [facility] ([id number]) [address] [place] [address] 11525 Lymphocytes/100 WBC (Bld) 35.0 % Normal [facility] Comment on above: Performed By: #### C WON TORRES, , 35375-1 #### [facility] ([id number]) [address] [place] [address] 02596 MCH (RBC) [Entitic mass] 31.2 pg Normal 27-34 [facility] Comment on above: Performed By: #### WON Bonilla BCA, , 97039-1 #### [facility] ([id number]) [address] [place] [address] 14759 MCHC (RBC) [Mass/Vol] 34.2 g/dL Normal 32-36 [facility] Comment on above: Performed By: #### C WON TORRES, , 49008-9 #### [facility] ([id number]) [address] [place] [address] 24379 MCV (RBC) [Entitic vol] 91 fL Normal 80-100 [facility] Comment on above: Performed By: #### C BRIAN, WON, , 34228-9 #### [facility] ([id number]) [address] [place] [address] 28323 Monocytes (Bld) [#/Vol] 0.5 10*3/uL Normal 0-0.9 [facility] Comment on above: Performed By: #### C BRIAN, WON, , 17475-0 #### [facility] ([id number]) [address] [place] [address] 42688 Monocytes/100 WBC (Bld) 7.3 % Normal [facility] Comment on above: Performed By: #### C BRIAN, BMP, , 07629-7 #### [facility] ([id number]) [address] [place] [address] 85426 Neutrophils/100 WBC (Bld) 54.6 % Normal [facility] Comment on above: Performed By: #### C BRIAN, BMP, , 25303-2 #### [facility] ([id number]) [address] [place] [address] 18143 Platelet mean volume (Bld) [Entitic vol] 7.3 fL Normal 7-12 [facility] Comment on above: Performed By: #### C BRIAN, BMP, , 98616-2 #### [facility] ([id number]) [address] [place] [address] [place] [address] Platelets (Bld) [#/Vol] 245 10*3/uL Normal 150-450 [facility] Comment on above: Performed By: #### C WON TORRES, , 92726-2 #### [facility] ([id number]) [address] [place] [address] 21231 RBC COUNT 4.48 X10E12/L Normal 4.10-5.70 [facility] Comment on above: Performed By: #### C WON TORRES, , 74404-9 #### [facility] ([id number]) [address] [place] [address] 34692 WBC (Bld) [#/Vol] 6.6 10*3/uL Normal 4.0-11.0 [facility] Comment on above: Performed By: #### C WON TORRES, , 88066-0 #### [facility] ([id number]) [address] [place] [address] 53351 MAGNESIUMon 04-11-2024 Magnesium [Mass/Vol] 2.1 mg/dL Normal 1.8-2.6 [facility] Comment on above: Performed By: #### C WON TORRES, , 01887-6 #### [facility] ([id number]) [address] [place] [address] 38250 Troponin I.cardiac High sens itivity method [Mass/Vol]on 04-11-2024 1 HOUR TROP I, HIGH SENSITIVITY 2 ng/L Normal <21 [facility] Comment on above: Performed By: #### 8 9579-7 #### [facility] ([id number]) [address] [place] [address] 30772 TROPONIN I, HIGH SENSITIVITY 3 ng/L Normal <21 [facility] Comment on above: Performed By: #### C BRIAN, BMP, , 67729-7 #### [facility] ([id number]) [address] [facility] [place] [address] DIAGNOSTIC QUAL BCR-ABL1 ASS AY W/ REFLEXon 03-12-2024 DIAGNOSTIC QUAL BCR-ABL1 ASSAY, RESULT Not detected Normal [facility] Comment on above: Result Comment: Ther [...] also amplified for specimen quality assurance supervisor body and to ensure the integrity of RNA. [...] Transcripts Analytical Sensitivity Minor (e1a2) NCN = 0.72889 Major (e13a2) %IS = 0.0040 Major (e14a2) [...] developed and its performance characteristics determined by [facility]. It has not been cleared or approved by the U.S. Food and Drug Administration. This test was performed in a CLIA-certified laboratory and is intended for clinical purposes. Performed By: [facility] [address] [id number] Sausage Cooker: Sunny Roman MD, PhD CLIA Number: [id number] Performed By: #### D QBC2 #### [facility] [address] [facility] [address] DIAGNOSTIC QUAL BCR-ABL1 ASSAY, SOURCE Not Provided Normal [facility] Comment on above: Result Comment: AMEN DED on 03/12/24: Result in error was LAV Whole Blood, verified at 09:43 on 03/01/24. Performed By: #### D QBC2 #### [facility] [address] [facility] [address] CHROMOSOME ANAL. BONE MARROW on 03-11-2024 CHROMOSOME ANAL. BONE MARROW SEE BELOW Normal [facility] Comment on above: Result Comment: Poultry Process Worker mosome Analysis, Bone Marrow See Note Normal [...] reviewed and approved by Akash Smith, PhD, [facility] A portion of this analysis was performed at the following location(s): [facility] CG-[place]#1 [facility]1 [facility]1 INTERPRETIVE INFORMATION: Chromosome Analysis, Bone Marrow This test was developed and its performance characteristics determined by [facility]. It has not been cleared or approved by the [place] Food and Drug Administration. This test was performed in a CLIA certified laboratory and is intended for clinical purposes. EER Chromosome Analysis Bone Marrow See Note Authorized individuals can access the [facility] Enhanced Report using the following link: [email or web address] Performed By: [facility] [address] [place] [address] Sausage Cooker: Sunny Roman MD, PhD CLIA Number: [id number] Performed By: #### M MMP, LPBM2, CRBM2 #### [facility] [address] [address] MYELOID MALIGANCIES MUTATION PANEL BY [employer] 03-08-2024 EER MYELOID MALIGNANCIES PANEL BY NGS See Note Normal [facility] Comment on above: Result Comment: Auth orized individuals can access the [facility] Enhanced Report using the following link: [email or web address] Performed By: [facility] [address] [place] [address] Sausage Cooker: Sunny Roman MD, PhD CLIA Number: [id number] Performed By: #### M MMP, LPBM2, CRBM2 #### [facility] [address] [id number] MYELOID MALIGNANCIES PANEL INTERP See Note Normal [facility] Comment on above: Result Comment: Myeloid Malignancies Mutation Panel NGS Submitted diagnosis or diagnosis under consideration for variant interpretation: Pancytopenia TIER 1: Variants of Known Clinical Significance in Hematologic Malignancies None found TIER 2: Variants of Unknown Clinical Significance in Hematologic Malignancies 1. NSD1 c.7576C>T, p.[id number] ([id number]) VAF: 49.0% This variant has not been reported in hematologic malignancies, to the best of our knowledge. 2. KMT2A c.5573G>A, p.[id number] ([id number]) VAF: 47.8% This variant has not been reported in hematologic malignancies, to the best of our knowledge. This result has been reviewed and approved by Zulay Abdi M.D. Low coverage regions: Listed below are regions where the average sequencing depth (number of times a particular nucleotide is sequenced) in at least 20% of the [id number]-[id number] is less than our stringent cutoff of [...] NOTCH1; NPM1*; NRAS; NSD1; PHF6; PIGA; PPM1D; VDZS06S; PRPF8; PTPN11; RAD21; RUNX1; SAMD9; SAMD9L; SETBP1; [...] LPBM2, CRBM2 #### [facility] [address] [facility] [address] MYELOID MALIGNANCIES PANEL SPECIMEN Bone Marrow Normal [facility] Comment on above: Performed By: #### M MMP, LPBM2, CRBM2 #### [facility] [address] [facility] [address] MYELOID MALIGNANCY PROPOSED DIAGNOSIS Pancytopenia Normal [facility] Comment on above: Performed By: #### M MMP, LPBM2, CRBM2 #### [facility] [address] [facility] [address] LEUKEMIA/LYMPHOMA PHENO BLOO Don 03-05-2024 LEUKEMIA/LYMPHOMA PHENO BLOOD SEE BELOW Normal [facility] Comment on above: Result Comment: Leuk [...] loss of CD16 without any other abnormality) Preakness:Lambda Ratio: approx. 2:1 CD4:CD8 Ratio: approx. 8:1 Viability: 58% Markers run: HLA-DR, Preakness, Lambda, CD2, CD3, CD4, CD5, CD7, CD8, CD10, CD11b, CD13, CD14, CD16, CD19, CD20, CD23, CD33, CD34, CD38, CD45, CD56, CD57, CD64, CD117, CD200 Num of Markers Run: 26 This result has been reviewed and approved by Kostas Miller M.D., Ph.D. 03/05/2024 INTERPRETIVE INFORMATION: Leuk/Lymph Phenotyping, Flow Cytometry This test was developed and its performance characteristics determined by [facility]. It has not been cleared or approved by the [place] Food and Drug Administration. This test was performed in a CLIA certified laboratory and is intended for clinical purposes. Performed By: [facility] [address] [place] [address] Sausage Cooker: Sunny Roman MD, PhD [place] Number: [id number] Performed By: #### C , R #### [place] [address] LEUKEMIA/LYMPHOMA PHENO BONE MARROWon 03-03-2024 LEUKEMIA/LYMPHOMA PHENO BONE MARROW SEE BELOW Normal [facility] Comment on above: Result Comment: Leuk [...] Viability: 82% Markers run: cKappa, cLambda, HLA-DR, Preakness, Lambda, CD2, CD3, CD4, CD5, CD7, CD8, CD10, CD11b, CD13, CD14, CD16, CD19, CD20, CD23, CD33, CD34, CD38, CD45, CD56, CD57, CD64, CD117, CD138, CD200 Num of Markers Run: 29 This result has been reviewed and approved by Kostas Miller M.D., Ph.D. 03/03/2024 INTERPRETIVE INFORMATION: Leuk/Lymph Phenotyping, Flow Cytometry This test was developed and its performance characteristics determined by [facility]. It has not been cleared or approved by the US Food and Drug Administration. This test was performed in a CLIA certified laboratory and is intended for clinical purposes. Performed By: [email or web address] [address] [place] [address] Sausage Cooker: Sunny Roman MD, PhD CLIA Number: [id number] Performed By: #### M MMP, LPBM2, CRBM2 #### [address] [address] ANION GAPon 03-02-2024 Anion gap [Moles/Vol] 9.0 mmol/L Normal 8.0-16.0 [facility] Comment on above: Result Comment: ANIO N GAP = Sodium -(Chloride + CO2) Performed By: #### Irene GUPTA WSR #### [address] [address] Anion Gapon 03-02-2024 Anion gap [Moles/Vol] 9.0 mmol/L 8.0 - 16.0 meq/L [facility] Comment on above: ANION GAP = Sodium - (Chloride + CO2) Performed at [facility] [address] [place] [address] BASIC METABOL PANELon 2023 Calcium [Mass/Vol] 8.4 mg/dL Low 8.5-10.5 [facility] Comment on above: Performed By: #### Irene GUPTA, WSR #### [address] [address] Chloride [Moles/Vol] 100 mmol/L Normal 98-111 [facility] Comment on above: Performed By: #### Irene GUPTA, WSR #### [address] [address] CO2 [Moles/Vol] 29 mmol/L Normal 23-33 [facility] Comment on above: Performed By: #### C RP, WSR #### [facility] [address] [place] [address] Creatinine [Mass/Vol] 0.9 mg/dL Normal 0.4-1.2 [facility] Comment on above: Performed By: #### C RP, WSR #### [facility] [address] [place] [address] Glucose [Mass/Vol] 103 mg/dL Normal 70-108 [facility] Comment on above: Performed By: #### C RP, WSR #### [facility] [address] [place] [address] Potassium [Moles/Vol] 3.7 mmol/L Normal 3.5-5.2 [facility] Comment on above: Performed By: #### C RP, WSR #### [facility] [address] [place] [address] Sodium [Moles/Vol] 138 mmol/L Normal 135-145 [facility] Comment on above: Performed By: #### C RP, WSR #### [facility] [address] [place] [address] Urea nitrogen [Mass/Vol] 10 mg/dL Normal 7-22 [facility] Comment on above: Performed By: #### C RP, WSR #### [facility] [address] [place] [address] Basic metabolic 2000 panelon 03-02-2024 Calcium [Mass/Vol] 8.4 mg/dL Low 8.5 - 10. 5 mg/dL [facility] Comment on above: Performed at [facility] [address] [place] [address] Chloride [Moles/Vol] 100 mmol/L 98 - 111 meq/L [facility] CO2 [Moles/Vol] 29 mmol/L 23 - 33 meq/L [facility] Creatinine [Mass/Vol] 0.9 mg/dL 0.4 - 1.2 mg/dL [facility] Glucose [Mass/Vol] 103 mg/dL 70 - 108 mg/dL [facility] Interpretation and review of laboratory results Abnormal [facility] Potassium [Moles/Vol] 3.7 mmol/L 3.5 - 5.2 meq/L [facility] Sodium [Moles/Vol] 138 mmol/L 135 - 145 meq/L [facility] Urea nitrogen [Mass/Vol] 10 mg/dL 7 - 22 mg/dL [facility] CBC WITH DIFFERENTIALon 11-0 ATYPICAL LYMPH OCC. Normal [facility] Comment on above: Performed By: #### C DMITRY, SCAN1 #### [place] [address] PLATELET ESTIMATE SL DECREASED Normal Adequate [facility] Comment on above: Performed By: #### Irene ANDRES, SCAN1 #### [place] [address] SMUDGE CELLS Present Normal Absent [facility] Comment on above: Performed By: #### Irene ANDRES, SCAN1 #### [facility] [address] [place] [address] ABS BASOPHILS 0.0 thou/mm3 Normal 0.0-0.1 [facility] Comment on above: Performed By: #### Irene ANDRES, SCAN1 #### [facility] [address] [place] [address] ABS EOSINOPHILS 0.0 thou/mm3 Normal 0.0-0.4 [facility] Comment on above: Performed By: #### Irene ANDRES, SCAN1 #### [facility] [address] [place] [address] ABS IMMATURE GRANS (IG) 0.08 thou/mm3 High 0.00-0.07 [facility] Comment on above: Performed By: #### C DMITRY, SCAN1 #### [facility] [address] [place] [address] ABS LYMPHOCYTES 0.7 thou/mm3 Low 1.0-4.8 [facility] Comment on above: Performed By: #### Irene ANDRES, SCAN1 #### [facility] [address] [place] [address] ABS MONOCYTES 0.1 thou/mm3 Low 0.4-1.3 [facility] Comment on above: Performed By: #### C DMITRY, SCAN1 #### [facility] [address] [place] [address] ABS NEUTROPHILS 0.9 thou/mm3 Low 1.8-7.7 [facility] Comment on above: Performed By: #### C DMITRY, SCAN1 #### [facility] [address] [place] [address] Basophils/100 WBC (Bld) 0.5 % Normal [facility] Comment on above: Performed By: #### C DMITRY, SCAN1 #### [facility] [address] [place] [address] Eosinophils/100 WBC (Bld) 2.6 % Normal [facility] Comment on above: Performed By: #### Irene ANDRES, SCAN1 #### [facility] [address] [place] [address] Erythrocyte distribution width (RBC) [Ratio] 12.1 % Normal 11.5-14.5 [facility] Comment on above: Performed By: #### Irene ANDRES, SCAN1 #### [facility] [address] [place] [address] Hematocrit (Bld) [Volume fraction] 33.8 % Low 42.0-52.0 [facility] Comment on above: Performed By: #### Irene ANDRES, SCAN1 #### [facility] [address] [place] [address] Hemoglobin (Bld) [Mass/Vol] 11.6 g/dL Low 14.0-18.0 [facility] Comment on above: Performed By: #### C DMITRY, SCAN1 #### [facility] [address] [place] [address] IMMATURE GRANS (IG) 4.2 % Normal [facility] Comment on above: Performed By: #### C DMITRY, SCAN1 #### [facility] [address] [place] [address] Lymphocytes/100 WBC (Bld) 37.0 % Normal [facility] Comment on above: Performed By: #### Irene ANDRES, SCAN1 #### [facility] [address] [place] [address] MCH (RBC) [Entitic mass] 30.9 pg Normal 26.0-33.0 [facility] Comment on above: Performed By: #### C DMITRY, SCAN1 #### [facility] [address] [place] [address] MCHC (RBC) [Mass/Vol] 34.3 g/dL Normal 32.2-35.5 [facility] Comment on above: Performed By: #### C DMITRY, SCAN1 #### [facility] [address] [place] [address] MCV (RBC) [Entitic vol] 90.1 fL Normal 80.0-94.0 [facility] Comment on above: Performed By: #### Irene ANDRES, SCAN1 #### [address] [address] Monocytes/100 WBC (Bld) 7.8 % Normal [facility] Comment on above: Performed By: #### Irene ANDRES, SCAN1 #### [address] [address] Neutrophils/100 WBC (Bld) 47.9 % Normal [facility] Comment on above: Performed By: #### Irene ANDRES, SCAN1 #### [address] [address] NRBC 0 /100 wbc Normal [facility] Comment on above: Performed By: #### Irene ANDRES, SCAN1 #### [address] [address] PLATELET 100 thou/mm3 Low 130-400 [facility] Comment on above: Performed By: #### Irene ANDRES, SCAN1 #### [address] [address] Platelet mean volume (Bld) [Entitic vol] 11.4 fL Normal 9.4-12.4 [facility] Comment on above: Performed By: #### Irene ANDRES, SCAN1 #### [address] [address] RBC 3.75 mill/mm3 Low 4.70-6.10 [facility] Comment on above: Performed By: #### C DMITRY, SCAN1 #### [facility] [address] [place] [address] RDW-SD 40.8 fL Normal 35.0-45.0 [facility] Comment on above: Performed By: #### C DMITRY, SCAN1 #### [facility] [address] [place] [address] WBC 1.9 thou/mm3 Low 4.8-10.8 [facility] Comment on above: Performed By: #### C DMITRY, SCAN1 #### [facility] [address] [place] [address] CBC with Auto Differentialon 03-02-2024 Basophils (Bld) [...] [facility] Comment on above: Performed at [facility] [address] [place] [address] Variant lymphocytes LM Ql (Bld) OCC. % [facility] WBC (Bld) [#/Vol] 1.9 10*3/uL Low [facility] EKG Rhythm Stripon PACEART [facility] FRANCES VARNER VIRUS ANTIBODIE Son 03-02-2024 FRANCES VARNER VIRUS ANTIBODIES SEE BELOW Normal [facility] Comment on above: Result Comment: EBV [...] helpful. 11.0 U/mL or greater....Detected Performed By: [facility] [address] [place] [address] Sausage Cooker: Sunny Roman MD, PhD CLIA Number: [id number] Performed By: #### M MMP, LPBM2, CRBM2 #### [facility] [address] [facility] [address] Frances varner virus (EBV) ant ibody panel Ion 03-02-2024 FRANCES-VARNER VIRUS ANTIBODIES SEE BELOW [facility] Comment on above: EBV Ab to [...] helpful. 11.0 U/mL or greater....Detected Performed By: [facility] [address] [place] [address] Sausage Cooker: Sunny Roman MD, PhD CLIA Number: [id number] [facility] GFR, ESTIMATEDon 03-02-2024 GFR/1.73 sq M.predicted MDRD (S/P/Bld) [Vol rate/Area] mL/min/{1.73_m2} Normal >60 [facility] Comment on above: Pediatric calculator link [...] that affects renal tubular secretion. Performed at [facility] [address] [place] [address] Result Comment: Danyel atric calculator link [email or web address] [...] Performed By: #### C RP, WSR #### [place] [address] No Panel Informationon 03-02 [facility] SCAN OF BLOOD SMEARon 2023 SCAN OF BLOOD SMEAR see below Normal [facility] Comment on above: Criteria Exceeded; S can of Differential Slide [place] [address] Result Comment: Crit eria Exceeded; Scan of Differential Slide Performed Performed By: #### C BCWD, SCAN1 #### [place] [address] BLOOD SMEAR REVIEWon 024 PATHOLOGIST REVIEWED Tammi FUNES. Normal [facility] Comment on above: Result Comment: Panc ytopenia with normocytic anemia. No circulating blasts. No platelet clumps. Clinical correlation is recommended. Performed By: #### M MMP, LPBM2, CRBM2 #### [facility] [address] [place] [address] SMEAR REVIEWED BY PATHOLOGIST see below Normal [facility] Comment on above: Result Comment: See Below Performed By: #### M MMP, LPBM2, CRBM2 #### [facility] [address] [facility] [address] CBC WITH DIFFERENTIALon PATHOLOGIST REVIEWED PCF Normal [facility] Comment on above: Performed By: #### C VFLU #### [place] [address] ATYPICAL LYMPH OCC. Normal [facility] Comment on above: Performed By: #### C VFLU #### [place] [address] ABS BASOPHILS 0.0 thou/mm3 Normal 0.0-0.1 [facility] Comment on above: Performed By: #### C VFLU #### [facility] [address] [place] [address] ABS EOSINOPHILS 0.0 thou/mm3 Normal 0.0-0.4 [facility] Comment on above: Performed By: #### C VFLU #### [facility] [address] [place] [address] ABS IMMATURE GRANS (IG) 0.09 thou/mm3 High 0.00-0.07 [facility] Comment on above: Performed By: #### C VFLU #### [facility] [address] [place] [address] ABS LYMPHOCYTES 0.5 thou/mm3 Low 1.0-4.8 [facility] Comment on above: Performed By: #### C VFLU #### [facility] [address] [place] [address] ABS MONOCYTES 0.1 thou/mm3 Low 0.4-1.3 [facility] Comment on above: Performed By: #### C VFLU #### [facility] [address] [place] [address] ABS NEUTROPHILS 1.1 thou/mm3 Low 1.8-7.7 [facility] Comment on above: Performed By: #### C VFLU #### [facility] [address] [place] [address] Basophils/100 WBC (Bld) 1.1 % Normal [facility] Comment on above: Performed By: #### C VFLU #### [facility] [address] [place] [address] Eosinophils/100 WBC (Bld) 1.7 % Normal [facility] Comment on above: Performed By: #### C VFLU #### [facility] [address] [place] [address] Erythrocyte distribution width (RBC) [Ratio] 12.3 % Normal 11.5-14.5 [facility] Comment on above: Performed By: #### C VFLU #### [facility] [address] [place] [address] Hematocrit (Bld) [Volume fraction] 38.2 % Low 42.0-52.0 [facility] Comment on above: Performed By: #### C VFLU #### [facility] [address] [place] [address] Hemoglobin (Bld) [Mass/Vol] 12.9 g/dL Low 14.0-18.0 [facility] Comment on above: Performed By: #### C VFLU #### [address] [address] IMMATURE GRANS (IG) 5.0 % Normal [facility] Comment on above: Performed By: #### C VFLU #### [address] [address] Lymphocytes/100 WBC (Bld) 26.3 % Normal [facility] Comment on above: Performed By: #### C VFLU #### [address] [address] MCH (RBC) [Entitic mass] 30.2 pg Normal 26.0-33.0 [facility] Comment on above: Performed By: #### C VFLU #### [address] [address] MCHC (RBC) [Mass/Vol] 33.8 g/dL Normal 32.2-35.5 [facility] Comment on above: Performed By: #### C VFLU #### [address] [address] MCV (RBC) [Entitic vol] 89.5 fL Normal 80.0-94.0 [facility] Comment on above: Performed By: #### C VFLU #### [address] [address] Monocytes/100 WBC (Bld) 5.6 % Normal [facility] Comment on above: Performed By: #### C VFLU #### [address] [address] Neutrophils/100 WBC (Bld) 60.3 % Normal [facility] Comment on above: Performed By: #### C VFLU #### [address] [address] NRBC 0 /100 wbc Normal [facility] Comment on above: Performed By: #### C VFLU #### [facility] [address] [place] [address] PLATELET 86 thou/mm3 Low 130-400 [facility] Comment on above: Performed By: #### C VFLU #### [facility] [address] [place] [address] Platelet mean volume (Bld) [Entitic vol] 11.2 fL Normal 9.4-12.4 [facility] Comment on above: Performed By: #### C VFLU #### [facility] [address] [place] [address] RBC 4.27 mill/mm3 Low 4.70-6.10 [facility] Comment on above: Performed By: #### C VFLU #### [facility] [address] [place] [address] RDW-SD 40.0 fL Normal 35.0-45.0 [facility] Comment on above: Performed By: #### C VFLU #### [facility] [address] [place] [address] WBC 1.8 thou/mm3 Low 4.8-10.8 [facility] Comment on above: Performed By: #### C VFLU #### [address] [address] CBC with Auto Differentialon 03-01-2024 Basophils (Bld) [...] Immature granulocytes/100 WBC (Bld) 5.0 % [facility] Interpretation and review of laboratory results Abnormal [facility] Lymphocytes Absolute 0.5 Low [facility] Lymphocytes/100 WBC (Bld) 26.3 % [facility] MCH (RBC) [Entitic mass] 30.2 pg 26.0 - 33.0 pg [facility] MCHC (RBC) [Mass/Vol] 33.8 g/dL [facility] MCV (RBC) [Entitic vol] 89.5 fL 80.0 - 94.0 fL [facility] Monocytes Absolute 0.1 Low [facility] Monocytes/100 WBC (Bld) 5.6 % [facility] Neutrophils Absolute 1.[address] [facility] Neutrophils/100 WBC (Bld) 60.3 % [facility] Nucleated RBC/100 WBC (Bld) [Ratio] 0 % /[address] [facility] Comment on above: Performed at [facility] [address] [place] [address] Pathologist Review PCF [facility] Platelet mean volume (Bld) [Entitic vol] 11.2 fL 9.4 - 12.4 fL [facility] Platelets (Bld) [#/Vol] 86 10*3/uL Low [facility] RBC (Bld) [#/Vol] 4.27 10*6/uL Low [facility] Variant lymphocytes LM Ql (Bld) OCC. % [facility] WBC (Bld) [#/Vol] 1.8 10*3/uL Low [facility] BIOPSY BONE MARROWon - CT [...] ox monitoring devices by a registered nurse. Mrjj-gr-snxx time with patient 10 minutes. PROCEDURE: Signed [...] utilizing coaxial technique and handed to the veterinary laboratory diagnostician for processing and evaluation. Post procedure CT [...] Mendoza MD 03/01/24 Final result Normal [facility] CT Guidance for biopsy of Cosmo ne marrowon 03-01-2024 Status post successf ul CT guided bone marrow biopsy. This report has been created using voice recognition software. It may contain minor errors which are inherent in voice recognition technology. Electronically signed by Dr Kostas Mendoza [facility]-GUIDED BONE MARRO W BIOPSY: [...] ox monitoring devices by a registered nurse. Orch-qj-jlty time with patient 10 minutes. PROCEDURE: Signed [...] utilizing coaxial technique and handed to the veterinary laboratory diagnostician for processing and evaluation. Post procedure CT [...] ox monitoring devices by a registered nurse. Okdd-ir-xevl time with patient 10 minutes. PROCEDURE: Signed [...] utilizing coaxial technique and handed to the veterinary laboratory diagnostician for processing and evaluation. Post procedure CT [...] technology. Electronically signed by Dr Kostas Mendoza [facility] Radiology Study observation (narrative) [email or web address] CT Guidance for biopsy of Cosmo ne marrowOrdered By: Kostas Mendoza on 03-01-2024 [email or web address] Phone: EKG 12 LeadOrdered By: Julito Morris on 03-01-2024 Atrial Rate 87 BPM [email or web address] Phone: P [place] 73 degrees [email or web address] Phone: P-R Interval 140 ms [email or web address] Phone: Q-T Interval 378 ms [email or web address] Phone: QRS Duration 104 ms [email or web address] Phone: QTc Calculation (Bazett) 454 ms [email or web address] Phone: R [place] 72 degrees [email or web address] Phone: T [place] 42 degrees [email or web address] Phone: Ventricular Rate 87 BPM [employer] Work Phone: [email or web address] Phone: EKG 12 Leadon 03-01-2024 Normal sinus [...] NAYELI MORRIS ([id number]) on 03/01/2024 1:00:05 PM [facility] EKG Rhythm Stripon 4 75 PACEART [facility] 81 PACEART [facility] hr 86 [facility] No Panel Informationon 03-01 [facility] Path Review, Smearon 024 REVIEWED BY Tammi FUNES. [facility] Comment on above: Pancytopenia with no rmocytic anemia. No circulating blasts. No platelet clumps. Clinical correlation is recommended. Performed at [facility] [address] [place] [address] Smear Review see below [facility] Comment on above: See Below SCAN OF BLOOD SMEARon 2023 SCAN OF BLOOD SMEAR see below Normal [facility] Comment on above: Criteria Exceeded; S can of Differential Slide [place] [address] Result Comment: Crit eria Exceeded; Scan of Differential Slide Performed Performed By: #### C VFLU #### [place] [address] SURGICALon 03-01-2024 SURGICAL [place] [facility] ETHAN LAGUNAS [id number] Assoc. Page 1 of [address] [place] [address] PROC: 03/01/2024 [facility] RECV: 03/01/2024 [address] [facility] RPTD: 03/20/2024 [place] [address] LOC: 4A ACCT: [id number] SEX: M : 1990 AGE: 33 Y [...] x 2.0 x 0.7 cm in aggregate. Data Specialist blood clot is submitted in one cassette [...] currently pending. Please see separate reference reports. [id number] x 2 LIZY BRISCOE M.D., F.C.A.P. [facility]/ [facility] Printed on: 03/20/[address] [place] [address] Original print date: 03/20/2024 Normal [facility] Scan of Blood Smearon 2023 [facility] ANION GAPon 02-29-2024 Anion gap [Moles/Vol] 13.0 mmol/L Normal 8.0-16.0 [facility] Comment on above: Result Comment: ANIO N GAP = Sodium -(Chloride + CO2) Performed By: #### C VFLU #### [address] [address] Anion Gapon 02-29-2024 Anion gap [Moles/Vol] 13.0 mmol/L 8.0 - 16.0 meq/L [facility] Comment on above: ANION GAP = Sodium - (Chloride + CO2) Performed at [facility] [address] [place] [address] BASIC METABOL PANELon 2023 Calcium [Mass/Vol] 8.3 mg/dL Low 8.5-10.5 [facility] Comment on above: Performed By: #### C VFLU #### [facility] [address] [place] [address] Chloride [Moles/Vol] 102 mmol/L Normal 98-111 [facility] Comment on above: Performed By: #### C VFLU #### [facility] [address] [place] [address] CO2 [Moles/Vol] 24 mmol/L Normal 23-33 [facility] Comment on above: Performed By: #### C VFLU #### [facility] [address] [place] [address] Creatinine [Mass/Vol] 1.1 mg/dL Normal 0.4-1.2 [facility] Comment on above: Performed By: #### C VFLU #### [facility] [address] [place] [address] Glucose [Mass/Vol] 96 mg/dL Normal 70-108 [facility] Comment on above: Performed By: #### C VFLU #### [facility] [address] [place] [address] Potassium [Moles/Vol] 3.7 mmol/L Normal 3.5-5.2 [facility] Comment on above: Performed By: #### C VFLU #### [facility] [address] [place] [address] Sodium [Moles/Vol] 139 mmol/L Normal 135-145 [facility] Comment on above: Performed By: #### C VFLU #### [facility] [address] [place] [address] Urea nitrogen [Mass/Vol] 13 mg/dL Normal 7-22 [facility] Comment on above: Performed By: #### C VFLU #### [facility] [employer] [address] [address] Basic metabolic 2000 panelon 02-29-2024 Calcium [Mass/Vol] 8.3 mg/dL Low 8.5 - 10. 5 mg/dL [facility] Comment on above: Performed at [facility] Medical Lab [address] [place] [address] Chloride [Moles/Vol] 102 mmol/L 98 - 111 meq/L [facility] [employer] CO2 [Moles/Vol] 24 mmol/L 23 - 33 meq/L Bon [facility] [employer] Creatinine [Mass/Vol] 1.1 mg/dL 0.4 - 1.2 mg/dL [facility] Glucose [Mass/Vol] 96 mg/dL 70 - 108 mg/dL [facility] [employer] [facility] Interpretation and review of laboratory results Abnormal [facility] Potassium [Moles/Vol] 3.7 mmol/L 3.5 - 5.2 meq/L [facility] Sodium [Moles/Vol] 139 mmol/L 135 - 145 meq/L [facility] Urea nitrogen [Mass/Vol] 13 mg/dL 7 - 22 mg/dL [facility] C-REACTIVE PROTEINon 024 C-REACTIVE PROTEIN 4.49 mg/dl High 0.00-1.00 [facility] Comment on above: Performed By: #### C RP, WSR #### [facility] [place] [address] C-Reactive Proteinon 024 CRP [Mass/Vol] 4.49 mg/dl High 0.00 - 1.00 mg/dl [facility] Comment on above: Performed at [facility] Medical Lab [address] [place] [address] CALCIUM (IONIZED) * WBon CALCIUM (IONIZED) * WB 1.11 mmol/L Low 1.12-1.32 [facility] Comment on above: Performed By: #### C VFLU #### [facility] [place] [address] CBC WITH DIFFERENTIALon 01-31 PLATELET ESTIMATE DECREASED Normal Adequate [facility] Comment on above: Performed By: #### C VFLU #### [place] [address] SMUDGE CELLS Present Normal Absent [facility] Comment on above: Performed By: #### C VFLU #### [facility] [address] [address] ABS BASOPHILS 0.0 thou/mm3 Normal 0.0-0.1 [facility] Comment on above: Performed By: #### C VFLU #### [facility] [address] [place] [address] ABS EOSINOPHILS 0.0 thou/mm3 Normal 0.0-0.4 [facility] Comment on above: Performed By: #### C VFLU #### [facility] [place] [address] ABS IMMATURE GRANS (IG) 0.05 thou/mm3 Normal 0.00-0.07 [facility] Comment on above: Performed By: #### C VFLU #### [facility] [address] [place] [address] ABS LYMPHOCYTES 0.4 thou/mm3 Low 1.0-4.8 [facility] Comment on above: Performed By: #### C VFLU #### [facility] [address] [place] [address] ABS MONOCYTES 0.1 thou/mm3 Low 0.4-1.3 [facility] Comment on above: Performed By: #### C VFLU #### [address] [address] ABS NEUTROPHILS 0.9 thou/mm3 Low 1.8-7.7 [facility] Comment on above: Performed By: #### C VFLU #### [address] [address] Basophils/100 WBC (Bld) 1.4 % Normal [facility] Comment on above: Performed By: #### C VFLU #### [address] [address] Eosinophils/100 WBC (Bld) 0.7 % Normal [facility] Comment on above: Performed By: #### C VFLU #### [address] [address] Erythrocyte distribution width (RBC) [Ratio] 12.0 % Normal 11.5-14.5 [facility] Comment on above: Performed By: #### C VFLU #### [address] [address] Hematocrit (Bld) [Volume fraction] 36.0 % Low 42.0-52.0 [facility] Comment on above: Performed By: #### C VFLU #### [facility] [address] [place] [address] Hemoglobin (Bld) [Mass/Vol] 12.2 g/dL Low 14.0-18.0 [facility] Comment on above: Performed By: #### C VFLU #### [address] [place] [address] IMMATURE GRANS (IG) 3.4 % Normal [facility] Comment on above: Performed By: #### C VFLU #### [address] [address] Lymphocytes/100 WBC (Bld) 25.0 % Normal [facility] Comment on above: Performed By: #### C VFLU #### [address] [address] MCH (RBC) [Entitic mass] 30.7 pg Normal 26.0-33.0 [facility] Comment on above: Performed By: #### C VFLU #### [address] [address] MCHC (RBC) [Mass/Vol] 33.9 g/dL Normal 32.2-35.5 [facility] Comment on above: Performed By: #### C VFLU #### [address] [address] MCV (RBC) [Entitic vol] 90.5 fL Normal 80.0-94.0 [facility] Comment on above: Performed By: #### C VFLU #### [address] [address] Monocytes/100 WBC (Bld) 7.4 % Normal [facility] Comment on above: Performed By: #### C VFLU #### [address] [address] Neutrophils/100 WBC (Bld) 62.1 % Normal [facility] Comment on above: Performed By: #### C VFLU #### [address] [address] NRBC 0 /100 wbc Normal [facility] Comment on above: Performed By: #### C VFLU #### [address] [address] PLATELET 89 thou/mm3 Low 130-400 [facility] Comment on above: Performed By: #### C VFLU #### [address] [address] Platelet mean volume (Bld) [Entitic vol] 10.7 fL Normal 9.4-12.4 [facility] Comment on above: Performed By: #### C VFLU #### [facility] [address] [place] [address] RBC 3.98 mill/mm3 Low 4.70-6.10 [facility] Comment on above: Performed By: #### C VFLU #### [facility] [address] [place] [address] RDW-SD 40.1 fL Normal 35.0-45.0 [facility] Comment on above: Performed By: #### C VFLU #### [facility] [address] [place] [address] WBC 1.5 thou/mm3 Low 4.8-10.8 [facility] Comment on above: Performed By: #### C VFLU #### [facility] [address] [place] [address] CBC with Auto Differentialon 02-29-2024 Basophils (Bld) [...] Platelets (Bld) [#/Vol] 89 10*3/uL Low [facility] Platelets LM Ql (Bld) DECREASED Adequate [facility] RBC (Bld) [#/Vol] 3.98 10*6/uL Low [facility] Smudge cells LM Ql (Bld) Present Absent [facility] Comment on above: Performed at [facility] Medical Lab [address] [place] [address] WBC (Bld) [#/Vol] 1.5 10*3/uL Low [facility] CRP [Mass/Vol]on 02-29-2024 Interpretation and review of laboratory results Abnormal [facility] Calcium, Ionizedon Calcium.ionized ISE (Bld) [Moles/Vol] 1.11 mmol/L Low 1.12 - 1.32 mmol/L [facility] Comment on above: Performed at [facility] [address] [place] [address] EKG 12-LEADon 02-29-2024 EKG 12-LEAD 87 87 140 104 378 454 73 72 42 Normal sinus rhythm Nonspecific T wave abnormality Abnormal ECG When compared with ECG of 28-FEB-2024 20:02, No significant change was found Confirmed by NAYELI MORRIS ([id number]) on 03/01/2024 1:00:05 PM [email or web address] RetrieveTestByDateTime ?YkbomgrEO=[id number]&D ate=29-02-2024&Time=20 %3a57%3a59%3a00&TestTy pe=ECG&Site=3&OutputTy pe=PDF&Ext=PDF Normal [facility] ESR Westergren method (Bld) [Velocity]on 02-29-2024 ESR (Bld) [Velocity] 10 mm/h [facility] Comment on above: Performed at [facility] [address] [place] [address] [facility] Electrophoresis Protein, Ser umon 02-29-2024 Protein Electrophoresis, Serum SEE BELOW [facility] Comment on above: Total Protein, Serum [...] See Note Authorized individuals can access the [employer] Enhanced Report using the following link: [email or web address] Performed By: [facility] [address] [place] [address] Sausage Cooker: Sunny Roman MD, PhD CLIA Number: [id number] [facility] FERRITINon 02-29-2024 Ferritin [Mass/Vol] 1435 ng/mL High 22-322 [facility] Comment on above: Performed By: #### C RP, WSR #### [employer] [facility] [email or web address] [address] [place] [address] Ferritinon 02-29-2024 Ferritin IA [Mass/Vol] 1435 ng/mL High 22 - 322 ng/mL [facility] Comment on above: Performed at [facility] [address] [place] [address] GFR, ESTIMATEDon 02-29-2024 GFR/1.73 sq M.predicted MDRD (S/P/Bld) [Vol rate/Area] mL/min/{1.73_m2} Normal >60 [facility] Comment on above: Pediatric calculator link [...] that affects renal tubular secretion. Performed at [facility] [place] [address] Result Comment: Pedi atric calculator link [email or web address].[email or web address].org/professionals/kdoqi/gfr_[email or web address] [...] secretion. Performed By: #### C VFLU #### [employer] [address] [place] [address] HEPATIC FUNCTION PANELon Albumin [Mass/Vol] 3.3 g/dL Low 3.5-5.1 [facility] Comment on above: Performed By: #### C RP, WSR #### [employer] [address] [place] [address] ALP [Catalytic activity/Vol] 89 U/L Normal 38-126 [facility] Comment on above: Performed By: #### C RP, WSR #### [employer] [address] [place] [address] ALT [Catalytic activity/Vol] 49 U/L Normal 11-66 [facility] Comment on above: Performed By: #### C RP, WSR #### [facility] [address] [place] [address] AST [Catalytic activity/Vol] 61 U/L High 5-40 [facility] Comment on above: Performed By: #### C RP, WSR #### [facility] [address] [place] [address] Bilirubin [Mass/Vol] 0.7 mg/dL Normal 0.3-1.2 [facility] Comment on above: Performed By: #### C RP, WSR #### [facility] [address] [place] [address] Bilirubin.direct [Mass/Vol] 0.3 mg/dL Normal 0.1-13.8 [facility] Comment on above: Performed By: #### C RP, WSR #### [facility] [address] [place] [address] Protein [Mass/Vol] 5.8 g/dL Low 6.1-8.0 [facility] Comment on above: Performed By: #### C RP, WSR #### [facility] [address] [place] [address] HIV 1+2 Ab+HIV1 p24 Ag IA Ql on 02-29-2024 [facility] HIV AG/ABon 02-29-2024 HIV AG/AB SEE BELOW Normal [facility] Comment on above: Result Comment: HIV Ag/Ab NONREACTIVE NR No laboratory evidence of HIV infection. If acute HIV infection is suspected, consider testing for HIV-1 RNA. Performed at [facility] [address] . Performed By: #### C RP, WSR #### [facility] [address] [address] HIV Screenon 02-29-2024 HIV 1+2 Ab+HIV1 p24 Ag IA Ql SEE BELOW [facility] Comment on above: HIV Ag/Ab NONREACTIV E NR No laboratory evidence of HIV infection. If acute HIV infection is suspected, consider testing for HIV-1 RNA. Performed at [facility], [address] [place], [place] [id number] . Hepatic function 2000 panelo n 02-29-2024 Albumin BCG dye [Mass/Vol] 3.3 g/dL Low 3.5 - 5.1 g/dL [facility] ALP [Catalytic activity/Vol] 89 U/L 38 - 126 U/L [facility] ALT No additional P-5'-P [Catalytic activity/Vol] 49 U/L 11 - 66 U/L [facility] AST [Catalytic activity/Vol] 61 U/L High 5 - 40 U/L [facility] Bilirubin [Mass/Vol] 0.7 mg/dL 0.3 - 1.2 mg/dL [facility] Bilirubin.conjugate d [Mass/Vol] 0.3 mg/dL 0.1 - 13.8 mg/dL [facility] Protein [Mass/Vol] 5.8 g/dL Low 6.1 - 8.0 g/dL [facility] Comment on above: Performed at [facility] [address] [place] [address] IRONon 02-29-2024 Iron [Mass/Vol] 31 ug/dL Low 65-195 [facility] Comment on above: Performed By: #### Irene GUPTA, WSR #### [facility] [address] [address] IRON BINDING CAPACITYon 01-31 IRON BINDING CAPACITY 199 ug/dL Normal 171-450 [facility] Comment on above: Performed By: #### Irene GUPTA, WSR #### [facility] [address] [place] [address] IRON SATURATIONon 02-29-2024 Iron saturation [Mass fraction] 16 % Low 20 - 50 % [facility] Comment on above: Performed at [facility] [address] [place] [address] IRON SATURATION 16 % Low 20-50 [facility] Comment on above: Performed By: #### Irene GUPTA, WSR #### [facility] [address] [place] [address] Ironon 02-29-2024 Iron [Mass/Vol] 31 ug/dL Low 65 - 195 ug/dL [facility] Comment on above: Performed at [facility] Medical Lab [address] [place] [address] Iron binding capacityon 01-31 Iron binding capacity [Mass/Vol] 199 ug/dL 171 - 450 ug/dL [facility] Comment on above: Performed at [facility] Medical [facility] [address] [place] [address] MR Brain WO and W contrast I [...] Jadon Bhatti MD on 02/29/2024 02:17 AM [facility] MR Brain WO and W contrast I VOrdered By: Jadon Bhatti on 02-29-2024 [facility] Work Phone: MRI BRAIN W WO [...] Bhatti MD 02/29/24 Final result Normal [facility] No Panel Informationon 02-28 Interpretation and review of laboratory results Abnormal [facility] Interpretation and review of laboratory results Abnormal [facility] PROTEIN ELECTRO., SERUMon PROTEIN ELECTRO., SERUM SEE BELOW Normal [facility] Comment on above: Result Comment: Tota [...] See Note Authorized individuals can access the [employer] Enhanced Report using the following link: [email or web address] Performed By: [facility] [address] [place] [address] Sausage Cooker: Sunny Roman MD, PhD CLIA Number: [id number] Performed By: #### C RP, WSR #### [employer] [employer] [address] [place] [address] SCAN OF BLOOD SMEARon 2023 SCAN OF BLOOD SMEAR see below Normal [facility] Comment on above: Criteria Exceeded; S can of Differential Slide Performed Performed at [facility] [address] [place] [address] Result Comment: Crit eria Exceeded; Scan of Differential Slide Performed Performed By: #### C RP, WSR #### [employer] [address] [place] [address] SED RATEon 02-29-2024 SED RATE 10 mm/hr Normal 0-10 [facility] Comment on above: Performed By: #### C RP, WSR #### [employer] [address] [place] [address] ANION GAPon 02-28-2024 Anion gap [Moles/Vol] 14.0 mmol/L Normal 8.0-16.0 [facility] Comment on above: Result Comment: ANIO N GAP = Sodium -(Chloride + CO2) Performed By: #### M JORGE HAILEBM2, CRBM2 #### [facility] [address] [facility] [place] [place] [address] APTTon 02-28-2024 aPTT Coag (Bld) [Time] 24.6 s Normal 22.0-38.0 [facility] Comment on above: Result Comment: Ther apeutic Heparin Reference Range= 60-95 seconds (corresponds to 0.3 to 0.7 u/mL Anti-Xa factor activity) Performed By: #### M FELICITAS HAILE2, CRBM2 #### [facility] [address] [facility] [place] [place] [address] Anion Gapon 02-28-2024 Anion gap [Moles/Vol] 14.0 mmol/L 8.0 - 16.0 meq/L [facility] Comment on above: ANION GAP = Sodium - (Chloride + CO2) Performed at [facility] [address] [place] [address] CBC WITH DIFFERENTIALon 01-31 ABS BASOPHILS 0.0 thou/mm3 Normal 0.0-0.1 [facility] Comment on above: Performed By: #### M MIC, JORGEBM2, CRBM2 #### [facility] [address] [place] [address] ABS EOSINOPHILS 0.0 thou/mm3 Normal 0.0-0.4 [facility] Comment on above: Performed By: #### M MIC, LPBM2, CRBM2 #### [facility] [address] [place] [address] ABS IMMATURE GRANS (IG) 0.03 thou/mm3 Normal 0.00-0.07 [facility] Comment on above: Performed By: #### M MIC, LPBM2, CRBM2 #### [facility] [address] [place] [address] ABS LYMPHOCYTES 0.4 thou/mm3 Low 1.0-4.8 [facility] Comment on above: Performed By: #### M MIC, LPBM2, CRBM2 #### [facility] [address] [facility] [place] [place] [address] ABS MONOCYTES 0.2 thou/mm3 Low 0.4-1.3 [facility] Comment on above: Performed By: #### M MMP, LPBM2, CRBM2 #### [facility] [address] [facility] [address] ABS NEUTROPHILS 1.6 thou/mm3 Low 1.8-7.7 [facility] Comment on above: Performed By: #### M MMP, LPBM2, CRBM2 #### [facility] [address] [facility] [address] Basophils/100 WBC (Bld) 1.7 % Normal [facility] Comment on above: Performed By: #### M MMP, LPBM2, CRBM2 #### [facility] [address] [facility] [address] Eosinophils/100 WBC (Bld) 0.9 % Normal [facility] Comment on above: Performed By: #### M MMP, LPBM2, CRBM2 #### [facility] [address] [facility] [address] Erythrocyte distribution width (RBC) [Ratio] 12.2 % Normal 11.5-14.5 [facility] Comment on above: Performed By: #### M MMP, LPBM2, CRBM2 #### [facility] [address] [facility] [address] Hematocrit (Bld) [Volume fraction] 39.2 % Low 42.0-52.0 [facility] Comment on above: Performed By: #### M MMP, LPBM2, CRBM2 #### [facility] [address] [facility] [address] Hemoglobin (Bld) [Mass/Vol] 13.1 g/dL Low 14.0-18.0 [facility] Comment on above: Performed By: #### M MMP, LPBM2, CRBM2 #### [facility] [address] [facility] [address] IMMATURE GRANS (IG) 1.3 % Normal [facility] Comment on above: Performed By: #### M MMP, LPBM2, CRBM2 #### [facility] [address] [facility] [facility] [address] Lymphocytes/100 WBC (Bld) 17.7 % Normal [facility] Comment on above: Performed By: #### M MMP, LPBM2, CRBM2 #### [facility] [address] [facility] [place] [place] [address] MCH (RBC) [Entitic mass] 30.2 pg Normal 26.0-33.0 [facility] Comment on above: Performed By: #### M MMP, LPBM2, CRBM2 #### [facility] [address] [facility] [place] [place] [address] MCHC (RBC) [Mass/Vol] 33.4 g/dL Normal 32.2-35.5 [facility] Comment on above: Performed By: #### M MMP, LPBM2, CRBM2 #### [facility] [address] [facility] [place] [place] [address] MCV (RBC) [Entitic vol] 90.3 fL Normal 80.0-94.0 [facility] Comment on above: Performed By: #### M MMP, LPBM2, CRBM2 #### [facility] [address] [facility] [place] [place] [address] Monocytes/100 WBC (Bld) 8.2 % Normal [facility] Comment on above: Performed By: #### M MMP, LPBM2, CRBM2 #### [facility] [address] [facility] [place] [address] Neutrophils/100 WBC (Bld) 70.2 % Normal [facility] Comment on above: Performed By: #### M MMP, LPBM2, CRBM2 #### [facility] [address] [facility] [place] [place] [address] NRBC 0 /100 wbc Normal [facility] Comment on above: Performed By: #### M MMP, LPBM2, CRBM2 #### [facility] [address] [facility] [place] [place] [address] PLATELET 107 thou/mm3 Low 130-400 [facility] Comment on above: Performed By: #### M MMP, LPBM2, CRBM2 #### [facility] [address] [facility] [place] [place] [address] Platelet mean volume (Bld) [Entitic vol] 10.7 fL Normal 9.4-12.4 [facility] Comment on above: Performed By: #### M MMP, LPBM2, CRBM2 #### [facility] [address] [facility] [place] [place] [address] RBC 4.34 mill/mm3 Low 4.70-6.10 [facility] Comment on above: Performed By: #### M MMP, LPBM2, CRBM2 #### [facility] [address] [facility] [address] RDW-SD 40.4 fL Normal 35.0-45.0 [facility] Comment on above: Performed By: #### M MMP, LPBM2, CRBM2 #### [facility] [address] [place] [address] WBC 2.3 thou/mm3 Low 4.8-10.8 [facility] Comment on above: Performed By: #### M MMP, LPBM2, CRBM2 #### [facility] [address] [place] [address] CBC with Auto Differentialon 02-28-2024 Basophils (Bld) [...] [facility] Comment on above: Performed at [facility] [address] [place] [address] Platelets (Bld) [#/Vol] 107 10*3/uL Low [facility] RBC (Bld) [#/Vol] 4.34 10*6/uL Low [facility] WBC (Bld) [#/Vol] 2.3 10*3/uL Low [facility] COMP. METABOLIC PANELon 01-31 Albumin [Mass/Vol] 3.6 g/dL Normal 3.5-5.1 [facility] Comment on above: Performed By: #### M MMP, LPBM2, CRBM2 #### [facility] [address] [place] [address] ALP [Catalytic activity/Vol] 85 U/L Normal 38-126 [facility] Comment on above: Performed By: #### M MMP, LPBM2, CRBM2 #### [facility] [address] [place] [address] ALT [Catalytic activity/Vol] 39 U/L Normal 11-66 [facility] Comment on above: Performed By: #### M MMP, LPBM2, CRBM2 #### [facility] [address] [place] [address] AST [Catalytic activity/Vol] 45 U/L High 5-40 [facility] Comment on above: Performed By: #### M MMP, LPBM2, CRBM2 #### [facility] [address] [place] [address] Bilirubin [Mass/Vol] 0.8 mg/dL Normal 0.3-1.2 [facility] Comment on above: Performed By: #### M MMP, LPBM2, CRBM2 #### [facility] [address] [place] [address] Calcium [Mass/Vol] 8.5 mg/dL Normal 8.5-10.5 [facility] Comment on above: Performed By: #### M MMP, LPBM2, CRBM2 #### [facility] [address] [place] [address] Chloride [Moles/Vol] 101 mmol/L Normal 98-111 [facility] Comment on above: Performed By: #### M MMP, LPBM2, CRBM2 #### [facility] [address] [place] [address] CO2 [Moles/Vol] 25 mmol/L Normal 23-33 [facility] Comment on above: Performed By: #### M MMP, LPBM2, CRBM2 #### [facility] [address] [place] [address] Creatinine [Mass/Vol] 1.2 mg/dL Normal 0.4-1.2 [facility] Comment on above: Performed By: #### M MMP, LPBM2, CRBM2 #### [facility] [address] [place] [address] Glucose [Mass/Vol] 94 mg/dL Normal 70-108 [facility] Comment on above: Performed By: #### M MMP, LPBM2, CRBM2 #### [facility] [address] [facility] [place] [place] [address] POTASSIUM WITH REFLEX MG 4.1 meq/L Normal 3.5-5.2 [facility] Comment on above: Performed By: #### M MMP, LPBM2, CRBM2 #### [facility] [address] [facility] [address] Protein [Mass/Vol] 6.2 g/dL Normal 6.1-8.0 [facility] Comment on above: Performed By: #### M MMP, LPBM2, CRBM2 #### [facility] [address] [facility] [address] Sodium [Moles/Vol] 140 mmol/L Normal 135-145 [facility] Comment on above: Performed By: #### M MMP, LPBM2, CRBM2 #### [facility] [address] [facility] [address] Urea nitrogen [Mass/Vol] 15 mg/dL Normal 7-22 [facility] Comment on above: Performed By: #### M MMP, LPBM2, CRBM2 #### [facility] [address] [facility] [address] Comprehensive metabolic 2000 panelon 02-28-2024 Albumin BCG dye [Mass/Vol] 3.6 g/dL 3.5 - 5.1 g/dL [facility] ALP [Catalytic activity/Vol] 85 U/L 38 - 126 U/L [facility] ALT No additional P-5'-P [Catalytic activity/Vol] 39 U/L 11 - 66 U/L [facility] Comment on above: Performed at [facility] [address] [place] [address] AST [Catalytic activity/Vol] 45 U/L High 5 - 40 U/L [facility] Bilirubin [Mass/Vol] 0.8 mg/dL 0.3 - 1.2 mg/dL [facility] Calcium [Mass/Vol] 8.5 mg/dL 8.5 - 10. 5 mg/dL [facility] Chloride [Moles/Vol] 101 mmol/L 98 - 111 meq/L [facility] CO2 [Moles/Vol] 25 mmol/L 23 - 33 meq/L [facility] Creatinine [Mass/Vol] 1.2 mg/dL 0.4 - 1.2 mg/dL [facility] Glucose [Mass/Vol] 94 mg/dL 70 - 108 mg/dL [facility] Interpretation and review of laboratory results Abnormal [facility] Potassium [Moles/Vol] 4.1 mmol/L 3.5 - 5.2 meq/L [facility] Protein [Mass/Vol] 6.2 g/dL 6.1 - 8.0 g/dL [facility] Sodium [Moles/Vol] 140 mmol/L 135 - 145 meq/L [facility] Urea nitrogen [Mass/Vol] 15 mg/dL 7 - 22 mg/dL [facility] EKG 12 Leadon 02-28-2024 Atrial Rate 91 BPM [facility] P [place] 69 degrees [facility] P-R Interval 142 ms [facility] Q-T Interval 360 ms [facility] QRS Duration 100 ms [facility] QTc Calculation (Bazett) 442 ms [facility] R [place] 70 degrees [facility] T [place] 25 degrees [facility] Ventricular Rate 91 BPM [facility] Normal sinus rhythm Incomplete right bundle branch block Nonspecific T wave abnormality Abnormal ECG When compared with ECG of 28-FEB-2024 16:05, No significant change was found Confirmed by Arben Mercado ([id number]) on 02/28/2024 8:19:15 PM [facility] STR MUSE Unknown, Provider, M D - 02/28/2024 Normal sinus rhythm Incomplete right bundle branch block Nonspecific T wave abnormality Abnormal ECG When compared with ECG of 28-FEB-2024 16:05, No significant change was found Confirmed by Arben Mercado ([id number]) on 02/28/2024 8:19:15 PM [facility] Normal sinus rhythm Incomplete right bundle branch block Nonspecific ST and T wave abnormality Abnormal ECG No previous ECGs available Clinical correlation is indicated Confirmed by Arben Mercado ([id number]) on 02/28/2024 7:52:29 PM [facility] STR MUSE Unknown, Provider, M D - 02/28/2024 Normal sinus rhythm Incomplete right bundle branch block Nonspecific ST and T wave abnormality Abnormal ECG No previous ECGs available Clinical correlation is indicated Confirmed by Arben Mercado ([id number]) on 02/28/2024 7:52:29 PM [email or web address] EKG 12 LeadOrdered By: Provi kenya Unknown on 02-28-2024 Atrial Rate 78 BPM [email or web address] Work Phone: P [place] 56 degrees [email or web address] Work Phone: P-R Interval 154 ms [email or web address] Work Phone: Q-T Interval 386 ms [email or web address] Work Phone: QRS Duration 102 ms [email or web address] Work Phone: QTc Calculation (Bazett) 440 ms [email or web address] Work Phone: R [place] 63 degrees [employer] Work Phone: T [place] 19 degrees [email or web address] Work Phone: Ventricular Rate 78 BPM [facility] [employer] Work Phone: [email or web address] Work Phone: EKG 12-LEADon 02-28-2024 EKG 12-LEAD 91 91 142 [phone] 69 70 25 Normal sinus rhythm Incomplete right bundle branch block Nonspecific T wave abnormality Abnormal ECG When compared with ECG of 28-FEB-2024 16:05, No significant change was found Confirmed by Arben Mercado ([id number]) on 02/28/2024 8:19:15 PM [email or web address] RetrieveTestByDateTime ?AvctirlGD=[id number]&D ate=28-02-2024&Time=20 %3a02%3a02%3a00&TestTy pe=ECG&Site=3&OutputTy pe=PDF&Ext=PDF Normal [facility] EKG 12-LEAD 78 78 154 102 386 440 56 63 19 Normal sinus rhythm Incomplete right bundle branch block Nonspecific ST and T wave abnormality Abnormal ECG No previous ECGs available Clinical correlation is indicated Confirmed by Arben Mercado ([id number]) on 02/28/2024 7:52:29 PM [email or web address] RetrieveTestByDateTime ?OtjbsjiDB=[id number]&D ate=28-02-2024&Time=16 %3a05%3a49%3a00&TestTy pe=ECG&Site=3&OutputTy pe=PDF&Ext=PDF Normal [facility] EKG Rhythm Stripon PACEART [facility] GFR, ESTIMATEDon 02-28-2024 GFR/1.73 sq M.predicted MDRD (S/P/Bld) [Vol rate/Area] 83 mL/min/{1.73_m2} Normal >60 [facility] Comment on above: Pediatric calculator [...] that affects renal tubular secretion. Performed at [facility] [address] [place] [address] Result Comment: Pedi atric calculator link [email or web address] [...] M MMP, LPBM2, CRBM2 #### [facility] [address] [facility] [address] INR Coag (PPP) [Relative kurt e]on 02-28-2024 [facility] Influenza virus A and B RNA and SARS-CoV-2 (COVID-19) N gene panel MARIKA+probe (Resp)on 02-28-2024 FLUAV RNA MARIKA+probe Ql (Resp) Not detected NOT DETECTED [facility] FLUBV RNA MARIKA+probe Ql (Resp) Not detected NOT DETECTED [facility] Comment on above: Performed at [facility] [address] [place] [address] SARS-CoV-2 (COVID-19) RNA MARIKA+probe Ql (Resp) Not detected NOT DETECTED [facility] Comment on above: Not Detected results [...] B in nasopharyngeal and nasal swab specimens. [facility] LDon 02-28-2024 LD 532 U/L High 100-190 [facility] Comment on above: Performed By: #### M MMP, LPBM2, CRBM2 #### [facility] [address] [facility] [address] Lactate Dehydrogenaseon 01-31 LDH Lactate to pyruvate reaction [Catalytic activity/Vol] 532 U/L High 100 - 190 U/L [facility] Comment on above: Performed at [facility] [address] [place] [address] MAGNESIUMon 02-28-2024 Magnesium [Mass/Vol] 2.3 mg/dL Normal 1.6-2.4 [facility] Comment on above: Performed By: #### C VFLU #### [employer] [address] [place] [address] MR Brain WO and W contrast I Von 02-28-2024 Radiology Study observation (narrative) [facility] Magnesiumon 02-28-2024 Magnesium [Mass/Vol] 2.3 mg/dL 1.6 - 2.4 mg/dL [facility] Comment on above: Performed at [facility] [address] [place] [address] Magnesium [Mass/Vol]on 02-27 [facility] No Panel Informationon 02-27 Interpretation and review of laboratory results Abnormal [facility] PROTHOMBIN TIMEon 02-28-2024 INR Coag (Bld) [Relative time] 1.13 {INR} Normal 0.85-1.13 [facility] Comment on above: Result Comment: ---- -----INDICATION INR Reference Range DVT, PE, AF, AMI, tissue heart valve 2.0 to 3.0 Mechanical prosthetic valves 2.5 to 3.5 Performed By: #### M MMP, LPBM2, CRBM2 #### [facility] [address] [place] [address] Protime-INRon 02-28-2024 INR Coag (PPP) [Relative time] 1.13 {INR} 0.85 - 1.13 [facility] Comment on above: ---------INDICATION- INR Reference Range DVT, PE, AF, AMI, tissue heart valve 2.0 to 3.0 Mechanical prosthetic valves 2.5 to 3.5 Performed at [facility] [address] [place] [address] RETICULOCYTE PANELon 024 ABS RETIC COUNT 47.0 thou/mm3 Normal 20.0-115.0 [facility] Comment on above: Performed By: #### M MMP, LPBM2, CRBM2 #### [facility] [address] [place] [address] IMM RETIC FRACTION 18.5 % High 2.3-13.4 [facility] Comment on above: Performed By: #### M MMP, LPBM2, CRBM2 #### [facility] [address] [facility] [place] [place] [address] RETIC HEMOGLOBIN 29.0 pg Normal 28.2-35.7 [facility] Comment on above: Performed By: #### M MMP, LPBM2, CRBM2 #### [facility] [address] [facility] [place] [place] [address] RETICULOCYTES 1.1 % Normal 0.5-2.0 [facility] Comment on above: Performed By: #### M MMP, LPBM2, CRBM2 #### [facility] [address] [facility] [place] [address] Reticulocyteson 02-28-2024 Hemoglobin Auto (Reticulocytes) [Entitic mass] 29.0 pg 28.2 - 35.7 pg [facility] Comment on above: Performed at [facility] [address] [place] [address] Immature reticulocytes/Total reticulocytes (Bld) 18.5 % High 2.3 - 13.4 % [facility] Interpretation and review of laboratory results Abnormal [facility] Reticulocytes (Bld) [#/Vol] 47.0 10*3/uL [facility] [employer] Reticulocytes/100 RBC (Bld) 1.1 % 0.5 - 2.0 % [facility] SARS-COV-2 & INFLUENZA A/[facility] 02-28-2024 INFLUENZA A, RT-PCR Not detected Normal NOT DETECTED [facility] Comment on above: Performed By: #### C VFLU #### [employer] [address] [place] [address] INFLUENZA B, RT-PCR Not detected Normal NOT DETECTED [facility] Comment on above: Performed By: #### C VFLU #### [facility] [employer] [address] [place] [address] SARS-CoV-2 (COVID-19) RNA MARIKA+probe Ql (Unsp spec) Not detected Normal NOT DETECTED [facility] Comment on above: Result Comment: Not [...] specimens. Performed By: #### C VFLU #### [facility] [email or web address] [address] [place] [address] URIC ACIDon 02-28-2024 Urate [Mass/Vol] 7.6 mg/dL High 3.7-7.0 [facility] Comment on above: Performed By: #### M MMP, LPBM2, CRBM2 #### [facility] [address] [facility] [address] Uric Acidon 02-28-2024 Urate [Mass/Vol] 7.6 mg/dL High 3.7 - 7.0 mg/dL [facility] Comment on above: Performed at [facility] [address] [place], [place] [id number] VITAMIN B12 FOLATEon 024 Cobalamin (Vitamin B12) [Mass/Vol] 734 pg/mL Normal 211-911 [facility] Comment on above: Performed By: #### C DMITRY, SCAN1 #### [address] [address] FOLATE 4.1 ng/mL Low 4.8-24.2 [facility] Comment on above: Performed By: #### C DMITRY, SCAN1 #### [address] [address] Vitamin B12 & Folateon 02-27 Cobalamin (Vitamin B12) [Mass/Vol] 734 pg/mL 211 - 911 pg/mL [facility] Folate [Mass/Vol] 4.1 ng/mL Low 4.8 - 24.2 ng/mL [facility] Comment on above: Performed at [facility] [address] [place] [address] Interpretation and review of laboratory results Abnormal [facility] aPTT Coag (Bld) [Time]on 10- 30-2024 aPTT Coag (PPP) [Time] 24.6 s [facility] Comment on above: Therapeutic Heparin Reference Range= 60-95 seconds (corresponds to 0.3 to 0.7 u/mL Anti-Xa factor activity) Performed at [facility] [address] [place] [address] 25-hydroxyvitamin D3 [Mass/V ol]on 02-27-2024 [facility] BLOOD SMEAR REVIEWon PATHOLOGIST REVIEWED Estefani FUNES [facility] Comment on above: Result Comment: No s chistocytes seen Performed By: #### C RP, WSR #### [facility] [address] [address] SMEAR REVIEWED BY PATHOLOGIST see below Normal [facility] Comment on above: Result Comment: See Below Performed By: #### C RP, WSR #### [facility] [employer] [address] [address] C-REACTIVE PROTEINon 024 C-REACTIVE PROTEIN 6.83 mg/dl High 0.00-1.00 [facility] Comment on above: Performed By: #### C RP, WSR #### [facility] [address] [place] [address] C-Reactive Proteinon CRP [Mass/Vol] 6.83 mg/dl High 0.00 - 1.00 mg/dl [facility] Comment on above: Performed at [facility] [address] [place] [address] CALCIUM (IONIZED) * WBon CALCIUM (IONIZED) * WB 1.11 mmol/L Low 1.12-1.32 [facility] Comment on above: Performed By: #### C BCWD, SCAN1 #### [employer] [address] [place] [address] CREATININE (URINE)on Creatinine (U) [Mass/Vol] 37.4 mg/dL [facility] Comment on above: Performed By: #### C RP, WSR #### [facility] [address] [place] [address] CRP [Mass/Vol]on 02-27-2024 Interpretation and review of laboratory results Abnormal [facility] Calcium, Ionizedon 4 Calcium.ionized ISE (Bld) [Moles/Vol] 1.11 mmol/L Low 1.12 - 1.32 mmol/L [facility] Comment on above: Performed at [facility] [address] [place] [address] Calcium.ionized ISE (Bld) [M oles/Vol]on 02-27-2024 Interpretation and review of laboratory results Abnormal [facility] Creatinine, Random Urineon 1 Creatinine (U) [Mass/Vol] 37.4 mg/dL [facility] Comment on above: Performed at [facility] [address] [place] [address] DRUG ABUSE SCREENon 02-27-20 24 AMPHETAMINE/METHAMP H Negative Normal NEGATIVE [facility] Comment on above: Performed By: #### C RP, WSR #### [facility] [address] [place] [address] BARBITURATE Negative Normal NEGATIVE [facility] Comment on above: Performed By: #### C RP, WSR #### [facility] [address] [place] [address] Benzodiazepines Ql (U) Negative Normal NEGATIVE [facility] Comment on above: Performed By: #### C RP, WSR #### [facility] [address] [place] [address] Cannabinoids Screen Ql (U) Positive Normal NEGATIVE [facility] Comment on above: Performed By: #### C RP, WSR #### [facility] [address] [place] [address] COCAINE METABOLITE Negative Normal NEGATIVE [facility] Comment on above: Performed By: #### C RP, WSR #### [facility] [address] [place] [address] FENTANYL Negative Normal NEGATIVE [facility] Comment on above: Result Comment: A [...] #### C RP, WSR #### [facility] [address] [place] [address] Opiates Ql (U) Negative Normal NEGATIVE [facility] Comment on above: Performed By: #### C RP, WSR #### [facility] [address] [place] [address] OXYCODONE Negative Normal NEGATIVE [facility] Comment on above: Performed By: #### C RP, WSR #### [facility] [address] [place] [address] Phencyclidine Ql (U) Negative Normal NEGATIVE [facility] Comment on above: Performed By: #### C RP, WSR #### [facility] [address] [place] [address] EEG 24 houron 02-27-2024 Rm Davis MD 02/27/2024 11:51 AM LONG-TERM EEG-VIDEO MONITORING CLINICAL NEUROPHYSIOLOGY LABORATORY DEPARTMENT OF NEUROLOGY [facility] Patient: Ethan Donald Age: 33 y.o. [...] mL IntraVENous PRN Jenny Gunter APRN - [employer] 0.9 % sodium chloride infusion IntraVENous PRN Jenny Gunter PRUDENCE - SANJU potassium chloride (KLOR-CON M) extended [...] mg SubCUTAneous Daily Jenny Gunter APRN - [employer] 40 mg at 02/27/24 0814 ondansetron (ZOFRAN-ODT) disintegrating tablet 4 mg 4 mg Oral Q8H PRN Jenny Gunter APRN - CNP Or ondansetron (ZOFRAN) injection 4 mg 4 mg IntraVENous Q6H PRN Jenny Gunter APRN - [employer] 4 mg at 02/27/24 0815 polyethylene glycol (GLYCOLAX) packet 17 g 17 g Oral Daily PRN Jenny Gunter APRN - SANJU acetaminophen (TYLENOL) tablet 650 mg 650 mg Oral Q6H PRN Jenny Gunter APRN - [employer] 650 mg at 02/27/24 0128 Or acetaminophen (TYLENOL) suppository 650 mg 650 mg Rectal Q6H PRN Jenny Gnuter APRN - SANJU LORazepam (ATIVAN) injection 4 [...] revealed no abnormalities. RM DAVIS MD Diplomate, [place] [employer] and Neurology Diplomate, [place] [employer] of Clinical Neurophysiology Diplomate, [place] [employer] of Epilepsy Please note this is a preliminary report and updated daily. The final report will have a summary of behavior and electrographic findings with clinical correlation. [facility] EEG 24 hourOrdered By: Rm Davis on 02-27-2024 [facility] Work Phone: EKG Rhythm Stripon 4 PACEART [facility] PACEART [facility] PACEART [facility]ACEART [facility] Westergren method (Bld) [Velocity]on 02-27-2024 ESR (Bld) [Velocity] 9 mm/h [facility] Comment on above: Performed at [facility] [address] [place] [address] [facility] FIBRINOGENon 02-27-2024 FIBRINOGEN 402 mg/100ml Normal 155-475 [facility] Comment on above: Performed By: #### C BCWD, SCAN1 #### [facility] [address] [place] [address] Fibrinogenon 02-27-2024 Fibrinogen Coag (PPP) [Mass/Vol] 402 mg/dL [facility] Comment on above: Performed at [facility] [address] [place] [address] Fibrinogen Coag (PPP) [Mass/ Vol]on 02-27-2024 [facility] No Panel Informationon 02-26 [facility] [employer] OSMOLALITY URINEon 4 OSMOLALITY URINE see below Normal 250-750 [facility] Comment on above: Result Comment: Test was sent to an outside laboratory. Please refer to 'Reference' test. Performed By: #### C RP, WSR #### [facility] [email or web address] [address] [place] [address] Osmolality (U) [Osmolality]o n 02-27-2024 [facility] Osmolality, urineon 02-27-20 24 Osmolality (U) [Osmolality] see below [facility] Comment on above: Test was sent to an outside laboratory. Please refer to 'Reference' test. Performed at [facility] [address] [place] [address] PHOSPHORUSon 02-27-2024 Phosphate [Mass/Vol] 4.0 mg/dL Normal 2.4-4.7 [facility] Comment on above: Performed By: #### C BCWD, SCAN1 #### [facility] [address] [place] [address] POTASSIUM (URINE)on 02-27-20 24 POTASSIUM (URINE) 9.5 meq/l Normal [facility] Comment on above: Performed By: #### C RP, WSR #### [facility] [address] [place] [address] Path Review, Smearon 024 REVIEWED BY Estefani FUNES [facility] Comment on above: No schistocytes seen Performed at [facility] [address] [place] [address] Smear Review see below [facility] [employer] Comment on above: See Below [email or web address] Phosphate [Mass/Vol]on 02-26 [facility] Phosphoruson 02-27-2024 Phosphate [Mass/Vol] 4.0 mg/dL 2.4 - 4.7 mg/dL [facility] Comment on above: Performed at [facility] [address] [place], [place] [id number] Potassium, urine, randomon 1 Potassium (U) [Moles/Vol] 9.5 mmol/L [email or web address] Comment on above: Performed at [facility] [address] [place] [address] REFERENCE SPECIMENon 024 REFERENCE RANGE 50-1400 mOsm Normal [facility] TEST RESULT (WITH UNITS) 182 mOsm Normal [facility] ORIGINAL SAMPLE NUMBER [id number] Normal [facility] REFERENCE LOCATION see below Normal [facility] Comment on above: Result Comment: Perf ormed at [facility] [address] [place] [address] TEST(S) BEING PERFORMED URINE OSMO Normal [facility] Reference lab sampleon 02-26 ORIGINAL SAMPLE NUMBER [id number] [facility] REFERENCE LOCATION see below [facility] [employer] Comment on above: Performed at [facility] [address] [facility] [place] [address] Reference Range 50-1400 mOsm [employer] TEST RESULTS WITH UNITS 182 mOsm [email or web address] TEST(S) BEING PERFORMED URINE OSMO [employer] SED RATEon 02-27-2024 SED RATE 9 mm/hr Normal 0- [facility] Comment on above: Performed By: #### C RP, WSR #### [facility] [address] [place] [address] SODIUM (URINE)on 02-27-2024 Sodium (U) [Moles/Vol] mmol/L Normal [facility] Comment on above: Performed By: #### C RP, WSR #### [facility] [address] [place] [address] Sodium, urine, randomon 01-30 Sodium (U) [Moles/Vol] mmol/L meq/l [email or web address] Comment on above: Performed at [facility] [address] [place] [address] URINALYSIS W/ MICROon 2023 BACTERIA NONE SEEN Normal FEW/NONE SEEN [facility] Comment on above: Performed By: #### U AWM2 #### [facility] [address] [place] [address] CASTS NONE SEEN Normal NONE SEEN [facility] Comment on above: Performed By: #### U AWM2 #### [facility] [address] [place] [address] CASTS 2 NONE SEEN Normal [facility] Comment on above: Performed By: #### U AWM2 #### [facility] [address] [place] [address] Crystals LM Nom (Urine sed) NONE SEEN Normal NONE SEEN [facility] Comment on above: Performed By: #### U AWM2 #### [facility] [address] [place] [address] EPITHELIAL NONE SEEN Normal 3-5/hpf [facility] Comment on above: Performed By: #### U AWM2 #### [facility] [address] [place] [address] MISCELLANEOUS 2 NONE SEEN Normal [facility] Comment on above: Performed By: #### U AWM2 #### [facility] [address] [place] [address] RBC NONE SEEN Normal 0-2/hpf [facility] Comment on above: Performed By: #### U AWM2 #### [facility] [address] [place] [address] RENAL EPITHELIAL NONE SEEN Normal NONE SEEN [facility] Comment on above: Performed By: #### U AWM2 #### [facility] [address] [place] [address] WBC NONE SEEN Normal 0-4/hpf [facility] Comment on above: Performed By: #### U AWM2 #### [facility] [address] [place] [address] YEAST NONE SEEN Normal NONE SEEN [facility] Comment on above: Performed By: #### U AWM2 #### [facility] [address] [place] [address] Bilirubin Ql (U) Negative Normal NEGATIVE [facility] Comment on above: Performed By: #### U AWM2 #### [facility] [address] [place] [address] CHARACTER CLEAR Normal CLR-SL.CLOUD [facility] Comment on above: Performed By: #### U AWM2 #### [facility] [address] [place] [address] Color (U) YELLOW Normal YELLOW-STRAW [facility] Comment on above: Performed By: #### U AWM2 #### [facility] [address] [place] [address] Glucose Ql (U) Negative Normal NEGATIVE [facility] Comment on above: Performed By: #### U AWM2 #### [facility] [address] [place] [address] Hemoglobin Ql (U) Negative Normal NEGATIVE [facility] Comment on above: Performed By: #### U AWM2 #### [facility] [address] [place] [address] Ketones Ql (U) Negative Normal NEGATIVE [facility] Comment on above: Performed By: #### U AWM2 #### [address] [address] LEUKOCYTES Negative Normal NEGATIVE [facility] Comment on above: Performed By: #### U AWM2 #### [facility] [address] [place] [address] Nitrite Ql (U) Negative Normal NEGATIVE [facility] Comment on above: Performed By: #### U AWM2 #### [address] [address] pH (U) 6.5 [pH] Normal 5.0 - 9.0 [facility] Comment on above: Performed By: #### U AWM2 #### [facility] [address] [place] [address] Protein Ql (U) Negative Normal NEGATIVE [facility] Comment on above: Performed By: #### U AWM2 #### [facility] [address] [place] [address]167 Specific gravity (U) [Rel density] 1.007 Normal 1.002-1.030 [facility] Comment on above: Performed By: #### U AWM2 #### [address] [address] Urobilinogen Qn (U) 1.0 {Butch'U}/dL Normal 0.0 - 1. 0 [facility] Comment on above: Performed By: #### U AWM2 #### [facility] [address] [place], [place] [address] Urinalysis dipstick W Reflex Microscopic panel (U)on 02-27-2024 Bacteria, UA NONE SEEN FEW/NONE SEEN [facility] Bilirubin Ql (U) Negative NEGATIVE [facility] Casts LM.LPF (Urine sed) [#/Area] NONE SEEN /lpf [facility] Character (U) CLEAR CLR-SL.CLOUD [facility] Charcoal LM Ql (Urine sed) NONE SEEN [facility] Comment on above: Performed at [facility] [address] [place] [address] Color (U) YELLOW YELLOW-STRAW [facility] Crystals LM Ql (Urine sed) NONE SEEN NONE SEEN [facility] Epithelial Cells, UA NONE SEEN 3-5/hpf /hpf [facility] Epithelial cells.renal LM.HPF (Urine sed) [#/Area] NONE SEEN NONE SEEN [facility] Fungi.yeastlike LM Ql (Urine sed) NONE SEEN NONE SEEN [facility] Glucose Auto test strip Ql (U) Negative NEGATIVE mg/dl [facility] Hemoglobin Auto test strip Ql (U) Negative NEGATIVE [facility] Ketones Auto test strip Ql (U) Negative NEGATIVE [facility] Leukocyte esterase Auto test strip Ql (U) Negative NEGATIVE [facility] Nitrite Auto test strip Ql (U) Negative NEGATIVE [facility] pH (U) 6.5 [pH] 5.0 - 9.[address] [facility] Protein (U) [Mass/Vol] Negative NEGATIVE mg/dl [facility] RBC LM.HPF (Urine sed) [#/Area] NONE SEEN 0-2/hpf /hpf [facility] Specific [place], UA 1.007 1.002 - 1.[address] [facility] Urobilinogen, Urine 1.0 [facility] WBC LM.HPF (Urine sed) [#/Area] NONE SEEN 0-4/hpf /hpf [facility] Urine Drug [...] are for medical use only. Performed at [facility] [address] [place] [address] Opiates Screen Ql (U) Negative NEGATIVE [facility] Oxycodone Negative NEGATIVE [facility] Phencyclidine Ql (U) Negative NEGATIVE [facility] VITAMIN D TOTAL 25 (OH)on VITAMIN D TOTAL 25 (OH) 32 ng/ml Normal 30-100 [facility] Comment on above: Result Comment: Lashanda min D Status Range Deficiency <20 ng/ml Insuffiency 20-30 ng/ml Sufficiency 30-100 ng/ml Toxicity >100 ng/ml Performed By: #### C VFLU #### [facility] [address] [place] [address]397 Vitamin D 25 Hydroxyon 02-26 25-hydroxyvitamin D3 [Mass/Vol] 32 ng/mL 30 - 100 ng/ml [facility] Comment on above: Vitamin D Status Ran ge Deficiency <20 ng/ml Insuffiency 20-30 ng/ml Sufficiency 30-100 ng/ml Toxicity >100 ng/ml Performed at [facility] [address] [place] [address] Basic Metabolic Profon 02-25 Anion gap [Moles/Vol] 15 mmol/L Normal 9-16 [facility] Comment on above: Performed By: #### T MARY CHEN, BMP #### [facility] [address] [place], [place] [phone] Weld Technician: Ramo Jesus MD BUN/CRE Ratio 11 Normal 9-20 [facility] Comment on above: Performed By: #### T MARY CHEN, BMP #### [facility] [address] [place], [place] [id number] Weld Technician: Ramo Jesus MD Calcium [Mass/Vol] 9.3 mg/dL Normal 8.6-10.4 [facility] Comment on above: Performed By: #### MARY RODAS, BMP #### [facility] [address] [place], [place] [address] Weld Technician: Ramo Jesus MD Chloride [Moles/Vol] 97 mmol/L Low 98-107 [facility] Comment on above: Performed By: #### MARY RODAS, BMP #### [facility] [address] [place], [place] [address] Weld Technician: Ramo Jesus MD CO2 [Moles/Vol] 23 mmol/L Normal 20-31 [facility] Comment on above: Performed By: #### MARY RODAS, BMP #### [facility] [address] [place], [place] [phone] Weld Technician: Ramo Jesus MD Creatinine [Mass/Vol] 1.2 mg/dL Normal 0.70-1.20 [facility] Comment on above: Performed By: #### MARY RODAS, BMP #### [facility] [address] [place] [address] Weld Technician: Ramo Jesus MD GFR/1.73 sq M.predicted among non-blacks MDRD (S/P/Bld) [Vol rate/Area] 80 mL/min/{1.73_m2} Normal >60 [facility] Comment on above: Result Comment: These [...] By: #### T MARY CHEN, BMP #### [facility] [address] [place] [address] Weld Technician: Ramo Jesus MD Glucose [Mass/Vol] 100 mg/dL High 74-99 [facility] Comment on above: Performed By: #### MARY RODAS, BMP #### [facility] [address] [place], [place] [address] Weld Technician: Ramo Jesus MD Potassium [Moles/Vol] 3.3 mmol/L Low 3.7-5.3 [facility] Comment on above: Performed By: #### T MARY CHEN, BMP #### [address] [place], [place] [address] Weld Technician: Ramo Jesus MD Sodium [Moles/Vol] 135 mmol/L Low 136-145 [facility] Comment on above: Performed By: #### MARY RODAS, BMP #### [facility] [address] [place] [address] Weld Technician: Ramo Jesus MD Urea nitrogen [Mass/Vol] 13 mg/dL Normal 6-20 [facility] Comment on above: Performed By: #### T MARY CHEN, BMP #### [facility] [address] [place] [address] Weld Technician: Ramo Jesus MD C-Reactive Proteinon 10-28-2 024 CRP [Mass/Vol] 81.9 mg/L High 0.0-5.0 [facility] Comment on above: Performed By: #### S ED, CRP #### [address] [place] [address] Weld Technician: Ramo Jesus MD CBC with Diffon 02-26-2024 Abs. Basophil 0.04 k/uL Normal 0.0-0.2 [facility] Comment on above: Performed By: #### T MARY CHEN, BMP ####[address] [place] [address] Lab Director: Ramo Jesus MD Abs.Imm.Granulocyte 0.04 k/uL Normal 0.00-0.30 [facility] Comment on above: Performed By: #### T MARY CHEN, BMP ####[address] , [facility]83[facility])[phone] Director: Ramo Jesus MD Abs.Neutrophil (Seg) 2.58 k/uL Normal 1.50-8.10 [facility] Comment on above: Performed By: #### T MARY CHEN, BMP ####[address] [place] [address] Lab Director: Ramo Jesus MD Basophils/100 WBC (Bld) 1 % Normal 0-2 [facility] Comment on above: Performed By: #### T MARY CHEN, BMP ####[address] , [place] [address])[phone] Director: Ramo Jesus MD Eosinophils (Bld) [#/Vol] 0.08 10*3/uL Normal 0.00-0.44 [facility] Comment on above: Performed By: #### T MARY CHEN, BMP ####[address] [place] [address] Lab Director: Ramo Jesus MD Eosinophils/100 WBC (Bld) 2 % Normal 1-4 [facility] Comment on above: Performed By: #### T MARY CHEN, BMP ####[address] , [place] [address])[phone] Director: Ramo Jesus MD Immature granulocytes/100 WBC (Bld) 1 % High 0 [facility] Comment on above: Performed By: #### T GUSTAVO CDP, BMP ####[address] , [place] [address])[phone] Director: Raom Jesus MD Lymphocytes (Bld) [#/Vol] 1.03 10*3/uL Low 1.10-3.70 [facility] Comment on above: Performed By: #### T MARY CHEN, BMP ####[address] [place], [place] [address])[phone] Director: Ramo Jesus MD Lymphocytes/100 WBC (Bld) 25 % Normal 24-43 [facility] Comment on above: Performed By: #### T MARY CHEN, BMP ####[address] , [place] [address])[phone] Director: Ramo Jesus MD Monocytes (Bld) [#/Vol] 0.33 10*3/uL Normal 0.10-1.20 [facility] Comment on above: Performed By: #### T MARY CHEN, BMP ####[address] , [facility]83[facility])[phone] Director: Ramo Jesus MD Monocytes/100 WBC (Bld) 8 % Normal 3-12 [facility] Comment on above: Performed By: #### T MARY CHEN, BMP ####[address] , [facility]83 Lab Director: Ramo Jesus MD Morphology Gianni (Bld) [Interp] Normal Normal [facility] Comment on above: Performed By: #### T ROPI, CDP, BMP ####[address] [place] [address] Lab Director: Ramo Jesus MD Neutrophil (Seg) 63 % Normal 36-65 [facility] Comment on above: Performed By: #### T MARY CHEN, BMP ####[address] [place] [address] Lab Director: Ramo Jesus MD Platelet, Fluoresc. 117 k/uL Low 138-453 [facility] Comment on above: Performed By: #### T MARY CHEN, BMP ####[address] [place] [address] Lab Director: Ramo Jesus MD PLT, Immature Fract. 3.6 % Normal 1.1-10.3 [facility] Comment on above: Performed By: #### T MARY CHEN, BMP ####[address] [place] [address] Lab Director: Ramo Jesus MD Erythrocyte distribution width (RBC) [Ratio] 12.0 % Normal 11.8-14.4 [facility] Comment on above: Performed By: #### T MARY CHEN, BMP ####[address] [place] [address] Lab Director: Ramo Jesus MD Hematocrit (Bld) [Volume fraction] 41.0 % Normal 40.7-50.3 [facility] Comment on above: Performed By: #### T MARY CHEN, BMP ####[address] , [place] [address] Lab Director: Ramo Jesus MD Hemoglobin (Bld) [Mass/Vol] 14.7 g/dL Normal 13.0-17.0 [facility] Comment on above: Performed By: #### T MARY CHEN, BMP ####[address] [place] [phone] Lab Director: Ramo Jesus MD MCH (RBC) [Entitic mass] 31.1 pg Normal 25.2-33.5 [facility] Comment on above: Performed By: #### MARY RODAS, BMP ####[address] [place] [address] lab Director: Ramo Jesus MD MCHC (RBC) [Mass/Vol] 35.9 g/dL High 28.4-34.8 [facility] Comment on above: Performed By: #### MARY RODAS, BMP ####[address] [place] [address] lab Director: Ramo Jesus MD MCV (RBC) [Entitic vol] 86.9 fL Normal 82.6-102.9 [facility] Comment on above: Performed By: #### MARY RODAS, BMP ####[address] [place] [phone] Director: Ramo Jesus MD NRBC Automated 0.0 per 100 WBC Normal 0.0 [facility] Comment on above: Performed By: #### MARY RODAS, BMP ####[address] , [facility]83 lab Director: Ramo Jesus MD Platelet Count See Reflexed IPF Result Normal 138-453 [facility] Comment on above: Performed By: #### MARY RODAS, BMP ####[address] , [facility]83 lab Director: Ramo Jesus MD RBC (Bld) [#/Vol] 4.72 10*6/uL Normal 4.21-5.77 [facility] Comment on above: Performed By: #### MARY RODAS, BMP ####[address] [place], [place] [id number] lab Director: Ramo Jesus MD WBC (Bld) [#/Vol] 4.1 10*3/uL Normal 3.5-11.3 [facility] Comment on above: Performed By: #### T MARY CHEN, BMP ####[facility] [place] [address] Lab Director: Ramo Jesus MD CT HEAD WO CONTRASTon [...] Rockwell DO 02/26/24 Final result Normal [facility] CTA HEAD NECK W CONTRASTon 1 [...] Rockwell DO 02/26/24 Final result Normal [facility] Glucose, Whole Bloodon 02-25 Glucose [Mass/Vol] 105 mg/dL High 74-100 [facility] Liver Profileon 02-26-2024 Albumin [Mass/Vol] 4.1 g/dL Normal 3.5-5.2 [facility] Comment on above: Performed By: #### L IVP ####[address] , [place] [id number] Lab Director: Ramo Jesus MD Albumin/Glob Ratio 1.3 Normal 1.0-2.5 [facility] Comment on above: Performed By: #### L IVP ####[address] [place] [address] Lab Director: Ramo Jesus MD Alkaline Phos 97 U/L Normal 40-129 [facility] Comment on above: Performed By: #### L IVP ####[address] [place] [address] Lab Director: Ramo Jesus MD ALT [Catalytic activity/Vol] 45 U/L Normal 10-50 [facility] Comment on above: Performed By: #### L IVP ####[address] , [place] [id number] Lab Director: Ramo Jesus MD AST [Catalytic activity/Vol] 54 U/L High 10-50 [facility] Comment on above: Performed By: #### L IVP ####[address] , [place] [id number] Lab Director: Ramo Jesus MD Bilirubin [Mass/Vol] 1.1 mg/dL Normal 0.00-1.20 [facility] Comment on above: Performed By: #### L IVP ####[address] [place] [address] Lab Director: Ramo Jesus MD Bilirubin, Indirect 0.6 mg/dL Normal 0.0-1.0 [facility] Comment on above: Performed By: #### L IVP ####[address] , [place] [id number] Lab Director: Ramo Jesus MD Bilirubin.indirect [Mass/Vol] 0.5 mg/dL High 0.00-0.30 [facility] Comment on above: Performed By: #### L IVP ####[address] , [place] [address] Lab Director: Ramo Jesus MD Protein [Mass/Vol] 7.2 g/dL Normal 6.6-8.7 [facility] Comment on above: Performed By: #### L IVP ####[address] , [place] 2[address] Lab Director: Ramo Jesus MD Prolactinon 02-26-2024 Prolactin 4.70 ng/mL Normal 4.04-15.2 [facility] Comment on above: Result Comment: The presence of macroprolactin may cause interference in female patients with various endocrinological diseases or during . Performed By: #### P ROL #### [facility] [email or web address] [address] [place] [address] Weld Technician: Ra Kilpatrick MD Sedimentation Rateon 024 Sedimentation Rate 17 mm/Hr High 0-15 [facility] Comment on above: Performed By: #### S ED, CRP #### [facility] [address] [place], [place] [id number] Weld Technician: Ramo Jesus MD Troponinon 02-26-2024 Troponin, High Sens 9 ng/L Normal 0-22 [facility] Comment on above: Result Comment: High Sensitivity Troponin values cannot be compared with other Troponin methodologies. Performed By: #### T ROPI, CDP, BMP #### [facility] [address] [place], [place] [phone] Weld Technician: Ramo Jesus MD UA w/Reflex Cultureon 2023 Bilirubin, SemiQt,Ur Negative Normal NEG [facility] Comment on above: Performed By: #### U AX, UMICAO #### [facility] [address] [place], [place] [id number] Weld Technician: Ramo Jesus MD Blood, Urine Negative Normal NEG [facility] Comment on above: Performed By: #### U AX, UMICAO #### [facility] [address] [place], [place] [id number] Weld Technician: Ramo Jesus MD Clarity (U) Clear Normal CLEAR [facility] Comment on above: Performed By: #### U AX, UMICAO #### [facility] [address] [place], [place] [id number] Weld Technician: Ramo Jesus MD Color (U) Yellow Normal YEL [facility] Comment on above: Performed By: #### U AX, UMICAO #### [facility] [address] [place], [place] [id number] Weld Technician: Ramo Jesus MD Glucose Ql (U) Negative Normal NEG [facility] Comment on above: Performed By: #### U AX, UMICAO #### [facility] [address] [place], [place] [id number] Weld Technician: Ramo Jesus MD Ketones Ql (U) 2+ mg/dL Abnormal NEG [facility] Comment on above: Performed By: #### U AX, UMICAO #### [facility] [address] [place] [address] Dr[place], [place] [id number] Weld Technician: Ramo Jesus MD Leukocyte esterase Test strip Ql (U) Negative Normal NEG [facility] Comment on above: Performed By: #### U AX, UMICAO #### [facility] [address] [place] [address] Weld Technician: Ramo Jesus MD Nitrite,Ur Negative Normal NEG [facility] Comment on above: Performed By: #### U AX, UMICAO #### [address] [place] [address] [place] [address] Weld Technician: Ramo Jesus MD PH,Ur 6.0 Normal 5.0-9.0 [facility] Comment on above: Performed By: #### U AX, UMICAO #### [facility] [address] [place] [address] [place] [address] Weld Technician: Ramo Jesus MD Protein Ql (U) Negative Normal NEG [facility] Comment on above: Performed By: #### U AX, UMICAO #### [address] [place] [address] [place] [address] Weld Technician: Ramo Jesus MD Spec. [place],Ur 1.010 Normal 1.010-1.020 [facility] Comment on above: Performed By: #### U AX, UMICAO #### [facility] [address] [place] [address] [place] [address] Weld Technician: Ramo Jesus MD Urobilinogen,Ur Normal Normal 0.0-1.0 [facility] Comment on above: Performed By: #### U AX, UMICAO #### [facility] [address] [place] [address] Dr. [place], [place] [id number] Weld Technician: Ramo Jesus MD Urinalysis,Microon 4 Bacteria TRACE Abnormal NONE [facility] Comment on above: Performed By: #### U AX, UMICAO #### [facility] [address] [place] [address] Weld Technician: Ramo Jesus MD Epithelial cells LM Ql (Urine sed) 0 TO 2 Normal 0-5 [facility] Comment on above: Performed By: #### U AX, UMICAO #### [facility] [address] [place] [address] Weld Technician: Ramo Jesus MD Urine RBC's 0 TO 2 Normal 0-2 [facility] Comment on above: Performed By: #### U AX, UMICAO #### [facility] [address] [place] [address] Weld Technician: Ramo Jesus MD Urine WBC's 0 TO 2 Normal 0-5 [facility] Comment on above: Performed By: #### U AX, UMICAO #### [facility] [address] [place] [address] Weld Technician: Ramo Jesus MD XR CHEST PORTABLEon 02-26-20 XR CHEST PORTABLE EXAMINATION: ONE XRAY VIEW OF THE CHEST 02/26/2024 1:06 pm COMPARISON: None. HISTORY: ORDERING SYSTEM PROVIDED HISTORY: syncope TECHNOLOGIST PROVIDED HISTORY: syncope 33-year-old male with syncope FINDINGS: AP portable view of the chest nickel plant operator leads overlie the chest Trachea midline. No pneumothorax. No acute focal airspace consolidation or pleural effusions. Cardiac and mediastinal contours within normal limits. No acute osseous abnormality. IMPRESSION: No acute focal airspace consolidation or effusions. Interpreted by: Rubio Suarez MD Signed by: Rubio Suarez MD 02/26/24 Final result Normal [facility] GROUP A STREP CULTUREon 04- S. pyogenes Ag Ql (Unsp spec) Culture Observations: NEGATIVE FOR GROUP A STREPTOCOCCUS. Normal [facility] Comment on above: Performed By: #### S SCRN, GRASTCX #### [facility] [address] [place] [address] Dr. Pratibha Stevenson STREPT SCREENon 08-11-2022 STREP SCREEN A Negative Normal NEGATIVE [facility] Comment on above: Performed By: #### S SCRN, GRASTCX #### [facility] [address] [place] [address] Dr. Pratibha Stevenson AMYLASEon 07-23-2022 Amylase [Catalytic activity/Vol] 50 U/L Normal 25-115 [facility] Comment on above: Performed By: #### E RUR #### [facility] [address] [place] [address] Dr. Pratibha Stevenson CBC AUTO DIFFon 07-23-2022 BASO # 0.1 103/ul Normal 0.0-0.1 [facility] Comment on above: Performed By: #### L ACT #### [facility] [address] [place] [address] Dr. Pratibha Stevenson Basophils/100 WBC (Bld) 1.0 % Normal 0.2-2.0 [facility] Comment on above: Performed By: #### L ACT #### [facility] [address] [place] [address] Dr. Pratibha Stevenson EO # 0.1 103/ul Normal 0.0-0.7 [facility] Comment on above: Performed By: #### L ACT #### [facility] [address] [place] [address] Dr. Pratibha Stevenson Eosinophils/100 WBC (Bld) 1.7 % Normal 0.9-7.0 [facility] Comment on above: Performed By: #### L ACT #### [facility] [address] [place] [address] Dr. Pratibha Stevenson Erythrocyte distribution width (RBC) [Ratio] 12.1 % Normal 11.0-15.0 [facility] Comment on above: Performed By: #### L ACT #### [facility] [address] [place] [address] Dr. Pratibha Stevenson Hematocrit (Bld) [Volume fraction] 45.9 % Normal 42.0-54.0 [facility] Comment on above: Performed By: #### L ACT #### [facility] [address] [place] [address] Dr. Pratibha Stevenson Hemoglobin (Bld) [Mass/Vol] 15.6 g/dL Normal 14.0-18.0 [facility] Comment on above: Performed By: #### L ACT #### [facility] [address] [place] [address] Dr. Pratibha Stevenson IG # 0.01 10e3/ul Normal 0.00-0.03 [facility] Comment on above: Performed By: #### L ACT #### [facility] [address] [place] [address] Dr. Pratibha Stevenson IG % 0.1 % Normal 0.0-0.5 [facility] Comment on above: Performed By: #### L ACT #### [facility] [address] [place] [address] Dr. Pratibha Stevenson LYMPH # 2.0 103/ul Normal 1.2-3.8 [facility] Comment on above: Performed By: #### L ACT #### [facility] [address] [place] [address] Dr. Pratibha Stevenson Lymphocytes/100 WBC (Bld) 28.8 % Normal 20.5-60.0 [facility] Comment on above: Performed By: #### L ACT #### [facility] [address] [place] [address] Dr. Pratibha Stevenson MANUAL DIFF REQ NO Normal [facility] Comment on above: Performed By: #### L ACT #### [facility] [address] [place] [address] Dr. Pratibha Stevenson MCH (RBC) [Entitic mass] 31.3 pg Normal 25.9-34.0 [facility] Comment on above: Performed By: #### L ACT #### [facility] [address] [place] [address] Dr. Pratibha Stevenson MCHC (RBC) [Mass/Vol] 34.0 g/dL Normal 29.9-35.2 [facility] Comment on above: Performed By: #### L ACT #### [facility] [address] [address] [address] Pratibha Stevenson MCV (RBC) [Entitic vol] 92.2 fL Normal 80.0-94.0 [facility] Comment on above: Performed By: #### L ACT #### [facility] [address] [address] [address] Pratibha Stevenson MONO # 0.3 103/ul Normal 0.3-0.8 [facility] Comment on above: Performed By: #### L ACT #### [facility] [address] [address] [address] Pratibha Stevenson Monocytes/100 WBC (Bld) 4.3 % Normal 1.7-12.0 [facility] Comment on above: Performed By: #### L ACT #### [facility] [address] [address] [address] Pratibha Stevenson NEUT # 4.5 103/ul Normal 1.4-6.5 [facility] Comment on above: Performed By: #### L ACT #### [facility] [address] [place] [address] Dr. Pratibha Stevenson Neutrophils/100 WBC (Bld) 64.1 % Normal 43.0-75.0 [facility] Comment on above: Performed By: #### L ACT #### [facility] [address] [address] [address] Pratibha Stevenson Platelet mean volume (Bld) [Entitic vol] 10.3 fL Normal 9.5-13.5 [facility] Comment on above: Performed By: #### L ACT #### [facility] [address] [address] [address] Pratibha Stevenson PLT 219 103/ul Normal 150-450 [facility] Comment on above: Performed By: #### L ACT #### [facility] [address] [address] [address] Pratibha Stevenson RBC 4.98 106/ul Normal 4.70-6.10 [facility] Comment on above: Performed By: #### L ACT #### [facility] [address] [place], [place] [address] Dr. Pratibha Stevenson WBC 7.1 103/ul Normal 4.0-11.0 [facility] Comment on above: Performed By: #### L ACT #### [facility] [address] [place], [place] [address] ABD/PELV W CONon [...] YING WALTON Date: 2022-07-22 23:53 Normal [facility] DRUG SCREEN RAPID (URINE)on 07-23-2022 AMP Negative Normal NEGATIVE [facility] Comment on above: Performed By: #### E RUR #### [facility] [address] [address] [address] Pratibha Stevenson BAR Negative Normal NEGATIVE [facility] Comment on above: Performed By: #### E RUR #### [facility] [address] [place] [address] Dr. Pratibha Stevenson BUP Negative Normal NEGATIVE [facility] Comment on above: Performed By: #### E RUR #### [facility] [address] [place] [address] Dr. Pratibha Stevenson BZO Negative Normal NEGATIVE [facility] Comment on above: Performed By: #### E RUR #### [facility] [address] [place] [address] Dr. Pratibha Stevenson EMELY Negative Normal NEGATIVE [facility] Comment on above: Performed By: #### E RUR #### [facility] [address] [place] [address] Dr. Pratibha Stevenson CUT-OFFS SEE BELOW Normal [facility] Comment on above: Result Comment: AMP [...] ng/mL Performed By: #### E RUR #### [facility] [address] [place] [address] Dr. Pratibha Stevenson DRUG CUT HEADER DRUG CLASS TEST SYST EM CUT-OFF CONCENTRATIONS ARE FOLLOWS: Normal [facility] Comment on above: Performed By: #### E RUR #### [facility] [address] [place] [address] Dr. Pratibha Stevenson mAMP Negative Normal NEGATIVE [facility] Comment on above: Performed By: #### E RUR #### [facility] [address] [place] [address] Dr. Pratibha Stevenson MTD Negative Normal NEGATIVE [facility] Comment on above: Performed By: #### E RUR #### [facility] [address] [place] [address] Dr. Pratibha Stevenson OPI Positive Abnormal NEGATIVE [facility] Comment on above: Performed By: #### E RUR #### [facility] [address] [place] [address] Dr. Pratibha Stevenson OXY Negative Normal NEGATIVE [facility] Comment on above: Performed By: #### E RUR #### [facility] [address] [place] [address] Dr. Pratibha Stevenson PCP Negative Normal NEGATIVE [facility] Comment on above: Performed By: #### E RUR #### [facility] [address] [place] [address] Dr. Pratibha Stevenson PPX Negative Normal NEGATIVE [facility] Comment on above: Performed By: #### E RUR #### [facility] [address] [place] [address] Dr. Pratibha Stevenson TCA Positive Abnormal NEGATIVE [facility] Comment on above: Performed By: #### E RUR #### [facility] [address] [place] [address] Dr. Pratibha Stevenson THC Positive Abnormal NEGATIVE [facility] Comment on above: Performed By: #### E RUR #### [facility] [address] [place] [address] Dr. Pratibha Stevenson ER URINE PROFILEon 3 Bilirubin Ql (U) Negative Normal NEGATIVE [facility] Comment on above: Performed By: #### E RUR #### [facility] [address] [place] [address] Dr. Pratibha Stevenson Clarity (U) CLEAR Normal CLEAR [facility] Comment on above: Performed By: #### E RUR #### [facility] [address] [place] [address] Dr. Pratibha Stevenson Color (U) LT. YELLOW Normal YELLOW [facility] Comment on above: Performed By: #### E RUR #### [facility] [address] [place] [address] Dr. Pratibha RIOS A micrscopic examination will be performed if indicated. Normal [facility] Comment on above: Performed By: #### E RUR #### [facility] [address] [place] [address] Dr. Pratibha Stevenson Glucose Ql (U) Negative Normal NEGATIVE [facility] Comment on above: Performed By: #### E RUR #### [facility] [address] [place] [address] Dr. Pratibha Stevenson Hemoglobin Ql (U) Negative Normal NEGATIVE [facility] Comment on above: Performed By: #### E RUR #### [facility] [address] [place] [address] Dr. Pratibha Stevenson Ketones Ql (U) Negative Normal NEGATIVE [facility] Comment on above: Performed By: #### E RUR #### [facility] [address] [place] [address] Dr. Pratibha Stevenson LEUKOCYTES Negative Normal NEGATIVE [facility] Comment on above: Performed By: #### E RUR #### [facility] [address] [place] [address] Dr. Pratibha Stevenson Nitrite Ql (U) Negative Normal NEGATIVE [facility] Comment on above: Performed By: #### E RUR #### [facility] [address] [place] [address] Dr. Pratibha Stevenson pH (U) 5.5 [pH] Normal 5-9 [facility] Comment on above: Performed By: #### E RUR #### [facility] [address] [place] [address] Dr. Pratibha Stevenson SPEC GRAVITY <=1.005 Abnormal 1.005-<=1.[address] [facility] Comment on above: Performed By: #### E RUR #### [facility] [address] [place] [address] Dr. Pratibha Stevenson UA PROTEIN Negative Normal NEGATIVE/ TRACE [facility] Comment on above: Performed By: #### E RUR #### [facility] [address] [place] [address] Dr. Pratibha Stevenson UR MICRO IND NOT INDICATED Normal [facility] Comment on above: Performed By: #### E RUR #### [facility] [address] [place] [address] Dr. Pratibha Stevenson Urobilinogen Qn (U) 0.2 {Butch'U}/dL Normal 0.2 - 1. 0 [facility] Comment on above: Performed By: #### E RUR #### [facility] [address] [place] [address] Dr. Pratibha Stevenson LIPASEon 07-23-2022 Lipase [Catalytic activity/Vol] 126.0 U/L Normal 73.0-393.0 [facility] Comment on above: Performed By: #### E RUR #### [facility] [address] [place] [address] Dr. Pratibha Stevenson PROF 14(COMP METB)on 023 Albumin [Mass/Vol] 4.2 g/dL Normal 3.4-5.0 [facility] Comment on above: Performed By: #### E RUR #### [facility] [address] [place] [address] Dr. Pratibha Stevenson Albumin/Globulin [Mass ratio] 1.4 {ratio} Normal [facility] Comment on above: Performed By: #### E RUR #### [facility] [address] [place] [address] Dr. Pratibha Stevenson ALP [Catalytic activity/Vol] 87 U/L Normal 46-116 [facility] Comment on above: Performed By: #### E RUR #### [facility] [address] [place] [address] Dr. Pratibha Stevenson ALT [Catalytic activity/Vol] 20 U/L Normal 16-63 [facility] Comment on above: Performed By: #### E RUR #### [facility] [address] [place] [address] Dr. Pratibha Stevenson Anion gap [Moles/Vol] 12.8 mmol/L Normal [facility] Comment on above: Performed By: #### E RUR #### [facility] [address] [place] [address] Dr. Pratibha Stevenson AST [Catalytic activity/Vol] 18 U/L Normal 15-37 [facility] Comment on above: Performed By: #### E RUR #### [facility] [address] [place] [address] Dr. Pratibha Stevenosn Bilirubin [Mass/Vol] 0.5 mg/dL Normal 0.2-1.0 [facility] Comment on above: Performed By: #### E RUR #### [facility] [address] [place] [address] Dr. Pratibha Stevenson Calcium [Mass/Vol] 9.2 mg/dL Normal 8.5-10.1 [facility] Comment on above: Performed By: #### E RUR #### [facility] [address] [place] [address] Dr. Pratibha Stevenson Chloride [Moles/Vol] 101 mmol/L Normal 98-107 [facility] Comment on above: Performed By: #### E RUR #### [facility] [address] [place] [address] Dr. Pratibha Stevenson CO2 [Moles/Vol] 24.7 mmol/L Normal 21.0-32.0 [facility] Comment on above: Performed By: #### E RUR #### [facility] [address] [place] [address] Dr. Pratibha Stevenson Creatinine [Mass/Vol] 1.20 mg/dL Normal 0.70-1.30 [facility] Comment on above: Performed By: #### E RUR #### [facility] [address] [place] [address] Dr. Pratibha Stevenson EGFR-AF AFGHAN >60 Normal >=60 [facility] [place] Comment on above: Performed By: #### E RUR #### [facility] [address] [place] [address] Dr. Pratibha Stevenson EGFR-NON AF AFGHAN >60 Normal >=60 [facility] Comment on above: Performed By: #### E RUR #### [facility] [address] [place] [address] Dr. Pratibha Stevenson Globulin (S) [Mass/Vol] 3.1 g/dL Normal [facility] Comment on above: Performed By: #### E RUR #### [facility] [address] [address] [address] Pratibha Stevenson Glucose [Mass/Vol] 128 mg/dL Critically high 74-106 T [facility] Comment on above: Performed By: #### E RUR #### [facility] [address] [address] [address] Pratibha Stevenson Potassium [Moles/Vol] 3.5 mmol/L Normal 3.5-5.1 [facility] Comment on above: Performed By: #### E RUR #### [facility] [address] [address] [address] Pratibha Stevenson Protein [Mass/Vol] 7.3 g/dL Normal 6.4-8.2 [facility] Comment on above: Performed By: #### E RUR #### [facility] [address] [address] [address] Pratibha Stevenson Sodium [Moles/Vol] 135 mmol/L Critically low 136-145 Th [facility] Comment on above: Performed By: #### E RUR #### [facility] [address] [address] [address] Pratibha Stevenson Urea nitrogen [Mass/Vol] 10.0 mg/dL Normal 7.0-18.0 [facility] Comment on above: Performed By: #### E RUR #### [facility] [address] [address] [address] Pratibha Stevenson Urea nitrogen/Creatinine [Mass ratio] 8.3 mg/mg Normal [facility] Comment on above: Performed By: #### E RUR #### [facility] [address] [address] [address] Pratibha Stevenson CBC AUTO DIFFon 07-20-2022 BASO # 0.1 103/ul Normal 0.0-0.1 [facility] Comment on above: Performed By: #### C BC #### [facility] [address] [address] [address] Pratibha Stevenson Basophils/100 WBC (Bld) 0.7 % Normal 0.2-2.0 [facility] Comment on above: Performed By: #### C BC #### [facility] [address] [place] [address] Dr. Pratibha Stevenson EO # 0.2 103/ul Normal 0.0-0.7 [facility] Comment on above: Performed By: #### C BC #### [facility] [address] [place] [address] Dr. Pratibha Stevenson Eosinophils/100 WBC (Bld) 2.4 % Normal 0.9-7.0 [facility] Comment on above: Performed By: #### C BC #### [facility] [address] [place] [address] Dr. Pratibha Stevenson Erythrocyte distribution width (RBC) [Ratio] 12.4 % Normal 11.0-15.0 [facility] Comment on above: Performed By: #### C BC #### [facility] [address] [place] [address] Dr. Pratibha Stevenson Hematocrit (Bld) [Volume fraction] 45.8 % Normal 42.0-54.0 [facility] Comment on above: Performed By: #### C BC #### [facility] [address] [place] [address] Dr. Pratibha Stevenson Hemoglobin (Bld) [Mass/Vol] 15.6 g/dL Normal 14.0-18.0 [facility] Comment on above: Performed By: #### C BC #### [facility] [address] [place] [address] Dr. Pratibha Stevenson IG # 0.03 10e3/ul Normal 0.00-0.03 [facility] Comment on above: Performed By: #### C BC #### [facility] [address] [place] [address] Dr. Pratibha Stevenson IG % 0.4 % Normal 0.0-0.5 [facility] Comment on above: Performed By: #### C BC #### [facility] [address] [place] [address] Dr. Pratibha Stevenson LYMPH # 3.0 103/ul Normal 1.2-3.8 [facility] Comment on above: Performed By: #### C BC #### [facility] [address] [place] [address] Dr. Pratibha Stevenson Lymphocytes/100 WBC (Bld) 34.7 % Normal 20.5-60.0 [facility] Comment on above: Performed By: #### C BC #### [facility] [address] [place] [address] Dr. Pratibha Stevenson MANUAL DIFF REQ NO Normal [facility] Comment on above: Performed By: #### C BC #### [facility] [address] [place] [address] Dr. Pratibha Stevenson MCH (RBC) [Entitic mass] 31.3 pg Normal 25.9-34.0 [facility] Comment on above: Performed By: #### C BC #### [facility] [address] [place] [address] Dr. Pratibha Stevenson MCHC (RBC) [Mass/Vol] 34.1 g/dL Normal 29.9-35.2 [facility] Comment on above: Performed By: #### C BC #### [facility] [address] [place] [address] Dr. Pratibha Stevenson MCV (RBC) [Entitic vol] 92.0 fL Normal 80.0-94.0 [facility] Comment on above: Performed By: #### C BC #### [facility] [address] [place] [address] Dr. Pratibha Stevenson MONO # 0.5 103/ul Normal 0.3-0.8 [facility] Comment on above: Performed By: #### C BC #### [facility] [address] [place] [address] Dr. Pratibha Stevenson Monocytes/100 WBC (Bld) 5.9 % Normal 1.7-12.0 [facility] Comment on above: Performed By: #### C BC #### [facility] [address] [place] [address] Dr. Pratibha Stevenson NEUT # 4.8 103/ul Normal 1.4-6.5 [facility] Comment on above: Performed By: #### C BC #### [facility] [address] [place] [address] Dr. Pratibha Stevenson Neutrophils/100 WBC (Bld) 55.9 % Normal 43.0-75.0 [facility] Comment on above: Performed By: #### C BC #### [facility] [address] [place] [address] Dr. Pratibha Stevenson Platelet mean volume (Bld) [Entitic vol] 10.0 fL Normal 9.5-13.5 [facility] Comment on above: Performed By: #### C BC #### [facility] [address] [place] [address] Dr. Pratibha Stevenson PLT 243 103/ul Normal 150-450 [facility] Comment on above: Performed By: #### C BC #### [facility] [address] [place] [address] Dr. Pratibha Stevenson RBC 4.98 106/ul Normal 4.70-6.10 [facility] Comment on above: Performed By: #### C BC #### [facility] [address] [place] [address] Dr. Pratibha Stevenson WBC 8.5 103/ul Normal 4.0-11.0 [facility] Comment on above: Performed By: #### C BC #### [facility] [address] [place], [place] [id number] Dr. Pratibha Stevenson CT ABD/PELVIS WO CONon [...] ROSALINO VIDALES Date: 2022-07-20 04:12 Normal [facility] ER URINE PROFILEon 3 Bilirubin Ql (U) Negative Normal NEGATIVE The [facility] [place] Comment on above: Performed By: #### L ACT #### [facility] [address] [place] [address] Dr. Pratibha Stevenson Clarity (U) CLEAR Normal CLEAR [facility] Comment on above: Performed By: #### L ACT #### [facility] [address] [place] [address] Dr. Pratibha Stevenson Color (U) LT. YELLOW Normal YELLOW [facility] Comment on above: Performed By: #### L ACT #### [facility] [address] [place] [address] Dr. Pratibha Stevenson ERUAHD A micrscopic examination will be performed if indicated. Normal [facility] Comment on above: Performed By: #### L ACT #### [facility] [address] [place] [address] Dr. Pratibha Stevenson Glucose Ql (U) Negative Normal NEGATIVE [facility] Comment on above: Performed By: #### L ACT #### [facility] [address] [place] [address] Dr. Pratibha Stevenson Hemoglobin Ql (U) Negative Normal NEGATIVE The [facility] Comment on above: Performed By: #### L ACT #### [facility] [address] [place] [address] Dr. Pratibha Stevenson Ketones Ql (U) Negative Normal NEGATIVE [facility] Comment on above: Performed By: #### L ACT #### [facility] [address] [place] [address] Dr. Pratibha Stevenson LEUKOCYTES Negative Normal NEGATIVE [facility] Comment on above: Performed By: #### L ACT #### [facility] [address] [place] [address] Dr. Pratibha Stevenson Nitrite Ql (U) Negative Normal NEGATIVE [facility] Comment on above: Performed By: #### L ACT #### [facility] [address] [place] [address] Dr. Pratibha Stevenson pH (U) 6.0 [pH] Normal 5-9 [facility] Comment on above: Performed By: #### L ACT #### [facility] [address] [place] [address] Dr. Pratibha Stevenson SPEC GRAVITY <=1.005 Abnormal 1.005-<=1.[address] [facility] Comment on above: Performed By: #### L ACT #### [facility] [address] [place] [address] Dr. Pratibha Stevenson UA PROTEIN Negative Normal NEGATIVE/ TRACE [facility] Comment on above: Performed By: #### L ACT #### [facility] [address] [place] [address] Dr. Pratibha Stevenson UR MICRO IND NOT INDICATED Normal [facility] Comment on above: Performed By: #### L ACT #### [facility] [address] [place] [address] Dr. Pratibha Stevenson Urobilinogen Qn (U) 0.2 {Butch'U}/dL Normal 0.2 - 1. 0 [facility] Comment on above: Performed By: #### L ACT #### [facility] [address] [place] [address] Dr. Pratibha Stevenson LACTATE/LACTIC ACIDon 2022 Lactate [Moles/Vol] 0.8 mmol/L Normal 0.4-2.0 [facility] Comment on above: Performed By: #### L ACT #### [facility] [address] [place] [address] Dr. Pratibha Stevenson PROF 14(COMP METB)on 023 Albumin [Mass/Vol] 4.3 g/dL Normal 3.4-5.0 [facility] Comment on above: Performed By: #### E RUR #### [facility] [address] [place] [address] Dr. Pratibha Stevenson Albumin/Globulin [Mass ratio] 1.3 {ratio} Normal [facility] Comment on above: Performed By: #### E RUR #### [facility] [address] [place] [address] Dr. Pratibha Stevenson ALP [Catalytic activity/Vol] 94 U/L Normal 46-116 [facility] Comment on above: Performed By: #### E RUR #### [facility] [address] [place] [address] Dr. Pratibha Stevenson ALT [Catalytic activity/Vol] 23 U/L Normal 16-63 [facility] Comment on above: Performed By: #### E RUR #### [facility] [address] [place] [address] Dr. Pratibha Stevenson Anion gap [Moles/Vol] 10.5 mmol/L Normal [facility] Comment on above: Performed By: #### E RUR #### [facility] [address] [place] [address] Dr. Pratibha Stevenson AST [Catalytic activity/Vol] 21 U/L Normal 15-37 [facility] Comment on above: Performed By: #### E RUR #### [facility] [address] [place] [address] Dr. Pratibha Stevenson Bilirubin [Mass/Vol] 0.5 mg/dL Normal 0.2-1.0 [facility] Comment on above: Performed By: #### E RUR #### [facility] [address] [place] [address] Dr. Pratibha Stevenson Calcium [Mass/Vol] 9.3 mg/dL Normal 8.5-10.1 [facility] Comment on above: Performed By: #### E RUR #### [facility] [address] [place] [address] Dr. Pratibha Stevenson Chloride [Moles/Vol] 102 mmol/L Normal 98-107 [facility] Comment on above: Performed By: #### E RUR #### [facility] [address] [place] [address] Dr. Pratibha Stevenson CO2 [Moles/Vol] 26.2 mmol/L Normal 21.0-32.0 [facility] Comment on above: Performed By: #### E RUR #### [facility] [address] [address] [address] Pratibha Stevenson Creatinine [Mass/Vol] 1.18 mg/dL Normal 0.70-1.30 [facility] Comment on above: Performed By: #### E RUR #### [facility] [address] [place] [address] Dr. Pratibha Stevenson EGFR-AF AFGHAN >60 Normal >=60 [facility] Comment on above: Performed By: #### E RUR #### [facility] [address] [place] [address] Dr. Pratibha Stevenson EGFR-NON AF AFGHAN >60 Normal >=60 [facility] Comment on above: Performed By: #### E RUR #### [facility] [address] [place] [address] Dr. Pratibha Stevenson Globulin (S) [Mass/Vol] 3.2 g/dL Normal [facility] Comment on above: Performed By: #### E RUR #### [facility] [address] [place] [address] Dr. Pratibha Stevenson Glucose [Mass/Vol] 115 mg/dL Critically high 74-106 T [facility] Comment on above: Performed By: #### E RUR #### [facility] [address] [place] [address] Dr. Pratibha Stevenson Potassium [Moles/Vol] 3.7 mmol/L Normal 3.5-5.1 [facility] Comment on above: Performed By: #### E RUR #### [facility] [address] [place] [address] Dr. Pratibha Stevenson Protein [Mass/Vol] 7.5 g/dL Normal 6.4-8.2 [facility] Comment on above: Performed By: #### E RUR #### [facility] [address] [place] [address] Dr. Pratibha Stevenson Sodium [Moles/Vol] 135 mmol/L Critically low 136-145 [facility] Comment on above: Performed By: #### E RUR #### [facility] [address] [place], [place] [address] Dr. Pratibha Stevenson Urea nitrogen [Mass/Vol] 11.0 mg/dL Normal 7.0-18.0 [facility] Comment on above: Performed By: #### E RUR #### [facility] [address] [place], [place] [address] Dr. Pratibha Stevenson Urea nitrogen/Creatinine [Mass ratio] 9.3 mg/mg Normal [facility] Comment on above: Performed By: #### E RUR #### [facility] [address] [address] [address] Pratibha Stevenson TROPONIN, HIGH SENSITIVITYon 07-20-2022 HSTROP 5.0 pg/mL Normal 4.0-76.1 [facility] Comment on above: Result Comment: CUT- OFF POINTS HAVE BEEN ESTABLISHED BASED ON THE FOURTH UNIVERSAL DEFINITIONS OF MYOCARDIAL INFARCTION. THE UPPER REFERENCE LIMIT (URL) OF TROPONIN, DEFINED THE 99TH PERCENTILE OF cTnI DISTRIBUTION IN A REFERENCE POPULATION, HAS BEEN CONFIRMED THE DECISION THRESHOLD FOR [place] DIAGNOSIS. Performed By: #### E RUR #### [facility] [address] [address] [address] Pratibha Stevenson KIDNEYSon 07-06-2022 US KIDNEYS EXAMINATION: US KIDNEYS [...] by: RAMO BLAKE Date: 2022-07-06 11:14 Normal [facility] XR KUB 1 VIEWon 07-06-2022 XR [...] SAUMYA MARSH Date: 2022-07-06 11:57 Normal [facility] AMYLASEon 05-12-2022 Amylase [Catalytic activity/Vol] 39 U/L Normal 25-115 [facility] Comment on above: Performed By: #### E RUR #### [facility] [address] [place] [address] Dr. Pratibha Stevenson CBC AUTO DIFFon 05-12-2022 BASO # 0.0 103/ul Normal 0.0-0.1 [facility] Comment on above: Performed By: #### L ACT #### [facility] [address] [place] [address] Dr. Pratibha Stevenson Basophils/100 WBC (Bld) 0.2 % Normal 0.2-2.0 [facility] Comment on above: Performed By: #### L ACT #### [facility] [address] [place] [address] Dr. Pratibha Stevenson EO # 0.0 103/ul Normal 0.0-0.7 [facility] Comment on above: Performed By: #### L ACT #### [facility] [address] [address] [address] Pratibha Stevenson Eosinophils/100 WBC (Bld) 0.0 % Critically low 0.9-7.0 [facility] Comment on above: Performed By: #### L ACT #### [facility] [address] [place] [address] Dr. Pratibha Stevenson Erythrocyte distribution width (RBC) [Ratio] 11.7 % Normal 11.0-15.0 [facility] Comment on above: Performed By: #### L ACT #### [facility] [address] [address] [address] Pratibha Stevenson Hematocrit (Bld) [Volume fraction] 43.0 % Normal 42.0-54.0 [facility] Comment on above: Performed By: #### L ACT #### [facility] [address] [place] [address] Dr. Pratibha Stevenson Hemoglobin (Bld) [Mass/Vol] 13.9 g/dL Critically low 14.0-18.0 [facility] Comment on above: Performed By: #### L ACT #### [facility] [address] [place] [address] Dr. Pratibha Stevenson IG # 0.03 10e3/ul Normal 0.00-0.03 [facility] Comment on above: Performed By: #### L ACT #### [facility] [address] [place] [address] Dr. Pratibha Stevenson IG % 0.3 % Normal 0.0-0.5 [facility] Comment on above: Performed By: #### L ACT #### [facility] [address] [place] [address] Dr. Pratibha Stevenson LYMPH # 0.8 103/ul Critically low 1.2-3.8 [facility] Comment on above: Performed By: #### L ACT #### [facility] [address] [place] [address] Dr. Pratibha Stevenson Lymphocytes/100 WBC (Bld) 8.6 % Critically low 20.5-60.0 [facility] Comment on above: Performed By: #### L ACT #### [facility] [address] [place] [address] Dr. Pratibha Stevenson MANUAL DIFF REQ NO Normal [facility] Comment on above: Performed By: #### L ACT #### [facility] [address] [place] [address] Dr. Pratibha Stevenson MCH (RBC) [Entitic mass] 31.0 pg Normal 25.9-34.0 [facility] Comment on above: Performed By: #### L ACT #### [facility] [address] [address] [address] Pratibha Stevenson MCHC (RBC) [Mass/Vol] 32.3 g/dL Normal 29.9-35.2 [facility] Comment on above: Performed By: #### L ACT #### [facility] [address] [address] [address] Pratibha Stevenson MCV (RBC) [Entitic vol] 96.0 fL Critically high 80.0-94.0 [facility] Comment on above: Performed By: #### L ACT #### [facility] [address] [address] [address] Pratibha Stevenson MONO # 0.4 103/ul Normal 0.3-0.8 [facility] Comment on above: Performed By: #### L ACT #### [facility] [address] [address] [address] Pratibha Stevenson Monocytes/100 WBC (Bld) 4.5 % Normal 1.7-12.0 [facility] Comment on above: Performed By: #### L ACT #### [facility] [address] [address] [address] Pratibha Stevenson NEUT # 8.4 103/ul Critically high 1.4-6.[address] [facility] Comment on above: Performed By: #### L ACT #### [facility] [address] [address] [address] Pratibha Stevenson Neutrophils/100 WBC (Bld) 86.4 % Critically high 43.0-75.0 [facility] Comment on above: Performed By: #### L ACT #### [facility] [address] [address] [address] Pratibha Stevenson Platelet mean volume (Bld) [Entitic vol] 10.6 fL Normal 9.5-13.5 [facility] Comment on above: Performed By: #### L ACT #### [facility] [address] [address] [address] Pratibha Stevenson PLT 227 103/ul Normal 150-450 [facility] Comment on above: Performed By: #### L ACT #### [facility] [address] [place] [address] Dr. Pratibha Stevenson RBC 4.48 106/ul Critically low 4.70-6.[address] [facility] Comment on above: Performed By: #### L ACT #### [facility] [address] [place] [address] Dr. Pratibha Stevenson WBC 9.7 103/ul Normal 4.0-11.0 [facility] Comment on above: Performed By: #### L ACT #### [facility] [address] [place] [address] Dr. Pratibha Stevenson LIPASEon 05-12-2022 Lipase [Catalytic activity/Vol] 110.0 U/L Normal 73.0-393.0 [facility] Comment on above: Performed By: #### E RUR #### [facility] [address] [place] [address] Dr. Pratibha Stevenson PROF 14(COMP METB)on 023 Albumin [Mass/Vol] 3.3 g/dL Critically low 3.4-5.0 [facility] [place] [facility] Comment on above: Performed By: #### E RUR #### [facility] [address] [place] [address] Dr. Pratibha Stevenson Albumin/Globulin [Mass ratio] 1.2 {ratio} Normal [facility] Comment on above: Performed By: #### E RUR #### [facility] [address] [place] [address] Dr. Pratibha Stevenson ALP [Catalytic activity/Vol] 68 U/L Normal 46-116 [facility] Comment on above: Performed By: #### E RUR #### [facility] [address] [place] [address] Dr. Pratibha Stevenson ALT [Catalytic activity/Vol] 27 U/L Normal 16-63 [facility] Comment on above: Performed By: #### E RUR #### [facility] [address] [place] [address] Dr. Pratibha Stevenson Anion gap [Moles/Vol] 10.4 mmol/L Normal [facility] Comment on above: Performed By: #### E RUR #### [facility] [address] [address] [address] Pratibha Stevenson AST [Catalytic activity/Vol] 25 U/L Normal 15-37 [facility] Comment on above: Performed By: #### E RUR #### [facility] [address] [address] [address] Pratibha Stevenson Bilirubin [Mass/Vol] 0.5 mg/dL Normal 0.2-1.0 [facility] Comment on above: Performed By: #### E RUR #### [facility] [address] [address] [address] Pratibha Stevenson Calcium [Mass/Vol] 8.8 mg/dL Normal 8.5-10.1 [facility] Comment on above: Performed By: #### E RUR #### [facility] [address] [place] [address] Dr. Pratibha Stevenson Chloride [Moles/Vol] 105 mmol/L Normal 98-107 [facility] Comment on above: Performed By: #### E RUR #### [facility] [address] [address] [address] Pratibha Stevenson CO2 [Moles/Vol] 26.5 mmol/L Normal 21.0-32.0 [facility] Comment on above: Performed By: #### E RUR #### [facility] [address] [address] [address] Pratibha Stevenson Creatinine [Mass/Vol] 1.15 mg/dL Normal 0.70-1.30 [facility] Comment on above: Performed By: #### E RUR #### [facility] [address] [address] [address] Pratibha Stevenson EGFR-AF AFGHAN >60 Normal >=60 [facility] [place] Comment on above: Performed By: #### E RUR #### [facility] [address] [address] [address] Pratibha Stevenson EGFR-NON AF AFGHAN >60 Normal >=60 [facility] Comment on above: Performed By: #### E RUR #### [facility] [address] [address] [address] Pratibha Stevenson Globulin (S) [Mass/Vol] 2.7 g/dL Normal [facility] Comment on above: Performed By: #### E RUR #### [facility] [address] [address] [address] Pratibha Stevenson Glucose [Mass/Vol] 119 mg/dL Critically high 74-106 T [facility] Comment on above: Performed By: #### E RUR #### [facility] [address] [place] [address] Dr. Pratibha Stevenson Potassium [Moles/Vol] 3.9 mmol/L Normal 3.5-5.1 [facility] Comment on above: Performed By: #### E RUR #### [facility] [address] [place] [address] Dr. Pratibha Stevenson Protein [Mass/Vol] 6.0 g/dL Critically low 6.4-8.2 [facility] Comment on above: Performed By: #### E RUR #### [facility] [address] [place] [address] Dr. Pratibha Stevenson Sodium [Moles/Vol] 138 mmol/L Normal 136-145 [facility] Comment on above: Performed By: #### E RUR #### [facility] [address] [place] [address] Dr. Pratibha Stevenson Urea nitrogen [Mass/Vol] 7.0 mg/dL Normal 7.0-18.0 [facility] Comment on above: Performed By: #### E RUR #### [facility] [address] [place] [address] Dr. Pratibha Stevenson Urea nitrogen/Creatinine [Mass ratio] 6.1 mg/mg Normal [facility] Comment on above: Performed By: #### E RUR #### [facility] [address] [place] [address] Dr. Pratibha Stevenson XR KUB 1 VIEWon [...] ROSALINO VIDALES Date: 2022-05-12 06:43 Normal [facility] AMYLASEon 05-11-2022 Amylase [Catalytic activity/Vol] 52 U/L Normal 25-115 [facility] Comment on above: Performed By: #### C GREG NGUYEN LIPA #### [facility] [address] [place] [address] Dr. Pratibha Stevenson CBC AUTO DIFFon 05-11-2022 BASO # 0.0 103/ul Normal 0.0-0.1 [facility] Comment on above: Performed By: #### C BC #### [facility] [address] [place] [address] Dr. Pratibha Stevenson Basophils/100 WBC (Bld) 0.6 % Normal 0.2-2.0 [facility] Comment on above: Performed By: #### C BC #### [facility] [address] [place] [address] Dr. Pratibha Stevenson EO # 0.2 103/ul Normal 0.0-0.7 [facility] Comment on above: Performed By: #### C BC #### [facility] [address] [place] [address] Dr. Pratibha Stevenson Eosinophils/100 WBC (Bld) 2.3 % Normal 0.9-7.0 [facility] Comment on above: Performed By: #### C BC #### [facility] [address] [place] [address] Dr. Pratibha Stevenson Erythrocyte distribution width (RBC) [Ratio] 11.7 % Normal 11.0-15.0 [facility] Comment on above: Performed By: #### C BC #### [facility] [address] [place] [address] Dr. Pratibha Stevenson Hematocrit (Bld) [Volume fraction] 42.4 % Normal 42.0-54.0 [facility] Comment on above: Performed By: #### C BC #### [facility] [address] [place] [address] Dr. Pratibha Stevenson Hemoglobin (Bld) [Mass/Vol] 14.3 g/dL Normal 14.0-18.0 [facility] Comment on above: Performed By: #### C BC #### [facility] [address] [place] [address] Dr. Pratibha Stevenson IG # 0.01 10e3/ul Normal 0.00-0.03 [facility] Comment on above: Performed By: #### C BC #### [facility] [address] [place] [address] Dr. Pratibha Stevenson IG % 0.2 % Normal 0.0-0.5 [facility] Comment on above: Performed By: #### C BC #### [facility] [address] [place] [address] Dr. Pratibha Stevenson LYMPH # 2.8 103/ul Normal 1.2-3.8 [facility] Comment on above: Performed By: #### C BC #### [facility] [address] [place] [address] Dr. Pratibha Stevenson Lymphocytes/100 WBC (Bld) 41.8 % Normal 20.5-60.0 [facility] Comment on above: Performed By: #### C BC #### [facility] [address] [place] [address] Dr. Pratibha Stevenson MANUAL DIFF REQ NO Normal [facility] Comment on above: Performed By: #### C BC #### [facility] [address] [place] [address] Dr. Pratibha Stevenson MCH (RBC) [Entitic mass] 31.0 pg Normal 25.9-34.0 [facility] Comment on above: Performed By: #### C BC #### [facility] [address] [place] [address] Dr. Pratibha Stevenson MCHC (RBC) [Mass/Vol] 33.7 g/dL Normal 29.9-35.2 [facility] Comment on above: Performed By: #### C BC #### [facility] [address] [place] [address] Dr. Pratibha Stevenson MCV (RBC) [Entitic vol] 92.0 fL Normal 80.0-94.0 [facility] Comment on above: Performed By: #### C BC #### [facility] [address] [place] [address] Dr. Pratibha Stevenson MONO # 0.5 103/ul Normal 0.3-0.8 [facility] Comment on above: Performed By: #### C BC #### [facility] [address] [place] [address] Dr. Pratibha Stevenson Monocytes/100 WBC (Bld) 7.9 % Normal 1.7-12.0 [facility] Comment on above: Performed By: #### C BC #### [facility] [address] [place] [address] Dr. Pratibha Stevenson NEUT # 3.1 103/ul Normal 1.4-6.5 [facility] Comment on above: Performed By: #### C BC #### [facility] [address] [place] [address] Dr. Pratibha Stevenson Neutrophils/100 WBC (Bld) 47.2 % Normal 43.0-75.0 [facility] Comment on above: Performed By: #### C BC #### [facility] [address] [place] [address] Dr. Pratibha Stevenson Platelet mean volume (Bld) [Entitic vol] 10.7 fL Normal 9.5-13.5 [facility] Comment on above: Performed By: #### C BC #### [facility] [address] [place] [address] Dr. Pratibha Stevenson PLT 216 103/ul Normal 150-450 [facility] Comment on above: Performed By: #### C BC #### [facility] [address] [place] [address] Dr. Pratibha Stevenson RBC 4.61 106/ul Critically low 4.70-6.10 [facility] Comment on above: Performed By: #### C BC #### [facility] [address] [place], [place] [address] Dr. Pratibha Stevenson WBC 6.6 103/ul Normal 4.0-11.0 [facility] Comment on above: Performed By: #### C BC #### [facility] [address] [place], [place] [address] ABD/PELVIS WO CONon [...] by: SAUMYA MARSH Date: 2022-05-11 08:31 Normal [facility] LIPASEon 05-11-2022 Lipase [Catalytic activity/Vol] 241.0 U/L Normal 73.0-393.0 [facility] Comment on above: Performed By: #### C MP, GREG, LIPA #### [facility] [address] [address] [address] Pratibha Stevenson PROF 14(COMP METB)on 023 Albumin [Mass/Vol] 3.6 g/dL Normal 3.4-5.0 [facility] Comment on above: Performed By: #### C MP, GREG, LIPA #### [facility] [address] [address] [address] Pratibha Stevenson Albumin/Globulin [Mass ratio] 1.2 {ratio} Normal [facility] Comment on above: Performed By: #### C MP, GREG, LIPA #### [facility] [address] [place] [address] Dr. Pratibha Stevenson ALP [Catalytic activity/Vol] 75 U/L Normal 46-116 [facility] Comment on above: Performed By: #### C MP, GREG, LIPA #### [facility] [address] [place] [address] Dr. Pratibha Stevenson ALT [Catalytic activity/Vol] 28 U/L Normal 16-63 [facility] Comment on above: Performed By: #### C MP, GREG, LIPA #### [facility] [address] [place] [address] Dr. Pratibha Stevenson Anion gap [Moles/Vol] 9.7 mmol/L Normal [facility] Comment on above: Performed By: #### C MP, GREG, LIPA #### [facility] [address] [place] [address] Dr. Pratibha Stevenson AST [Catalytic activity/Vol] 19 U/L Normal 15-37 [facility] Comment on above: Performed By: #### C MP, GREG, LIPA #### [facility] [address] [place] [address] Dr. Pratibha Stevenson Bilirubin [Mass/Vol] 0.5 mg/dL Normal 0.2-1.0 [facility] Comment on above: Performed By: #### C WENDY GREG, LIPA #### [facility] [address] [place] [address] Dr. Pratibha Stevenson Calcium [Mass/Vol] 9.1 mg/dL Normal 8.5-10.1 [facility] Comment on above: Performed By: #### C MP GREG, LIPA #### [facility] [address] [place] [address] Dr. Pratibha Stevenson Chloride [Moles/Vol] 104 mmol/L Normal 98-107 [facility] Comment on above: Performed By: #### C WENDY GREG, LIPA #### [facility] [address] [place] [address] Dr. Pratibha Stevenson CO2 [Moles/Vol] 29.3 mmol/L Normal 21.0-32.0 [facility] Comment on above: Performed By: #### C WENDY GREG, LIPA #### [facility] [address] [place] [address] Dr. Pratibha Stevenson Creatinine [Mass/Vol] 1.21 mg/dL Normal 0.70-1.30 [facility] Comment on above: Performed By: #### C WENDY GREG, LIPA #### [facility] [address] [place] [address] Dr. Pratibha Stevenson EGFR-AF AFGHAN >60 Normal >=60 [facility] Comment on above: Performed By: #### C WENDY GREG, LIPA #### [facility] [address] [place] [address] Dr. Pratibha Stevenson EGFR-NON AF AFGHAN >60 Normal >=60 [facility] Comment on above: Performed By: #### C WENDY GREG, LIPA #### [facility] [address] [place] [address] Dr. Pratibha Stevenson Globulin (S) [Mass/Vol] 3.1 g/dL Normal [facility] Comment on above: Performed By: #### C WENDY GREG, LIPA #### [facility] [address] [place] [address] Dr. Pratibha Stevenson Glucose [Mass/Vol] 88 mg/dL Normal 74-106 [facility] Comment on above: Performed By: #### C GREG NGUYEN LIPA #### [facility] [address] [address] [address] Pratibha Stevenson Potassium [Moles/Vol] 4.0 mmol/L Normal 3.5-5.1 [facility] Comment on above: Performed By: #### C GREG NGUYEN LIPA #### [facility] [address] [address] [address] Pratibha Stevenson Protein [Mass/Vol] 6.7 g/dL Normal 6.4-8.2 [facility] Comment on above: Performed By: #### C GREG NGUYEN LIPA #### [facility] [address] [place] [address] Dr. Pratibha Stevenson Sodium [Moles/Vol] 139 mmol/L Normal 136-145 [facility] Comment on above: Performed By: #### C GREG NGUYEN LIPA #### [facility] [address] [address] [address] Pratibha Stevenson Urea nitrogen [Mass/Vol] 8.0 mg/dL Normal 7.0-18.0 [facility] Comment on above: Performed By: #### C GREG NGUYEN LIPA #### [facility] [address] [place] [address] Dr. Pratibha Stevenson Urea nitrogen/Creatinine [Mass ratio] 6.6 mg/mg Normal [facility] Comment on above: Performed By: #### C GREG NGUYEN LIPA #### [facility] [address] [place] [address] Dr. Pratibha Stevenson XR KUB 1 VIEWon [...] MAUREEN GARDNER Date: 2022-05-11 06:36 Normal [facility] AMYLASEon 05-10-2022 Amylase [Catalytic activity/Vol] 41 U/L Normal 25-115 [facility] Comment on above: Performed By: #### L ACT #### [facility] [address] [place] [address] Dr. Pratibha Stevenson CBC AUTO DIFFon 05-10-2022 BASO # 0.0 103/ul Normal 0.0-0.1 [facility] Comment on above: Performed By: #### L ACT #### [facility] [address] [place] [address] Dr. Pratibha Stevenson Basophils/100 WBC (Bld) 0.7 % Normal 0.2-2.0 [facility] Comment on above: Performed By: #### L ACT #### [facility] [address] [place] [address] Dr. Pratibha Stevenson EO # 0.2 103/ul Normal 0.0-0.7 [facility] Comment on above: Performed By: #### L ACT #### [facility] [address] [place] [address] Dr. Pratibha Stevenson Eosinophils/100 WBC (Bld) 2.8 % Normal 0.9-7.0 [facility] Comment on above: Performed By: #### L ACT #### [facility] [address] [place] [address] Dr. Pratibha Stevenson Erythrocyte distribution width (RBC) [Ratio] 11.8 % Normal 11.0-15.0 [facility] Comment on above: Performed By: #### L ACT #### [facility] [address] [address] [address] Pratibha Stevenson Hematocrit (Bld) [Volume fraction] 38.8 % Critically low 42.0-54.0 [facility] Comment on above: Performed By: #### L ACT #### [facility] [address] [address] [address] Pratibha Stevenson Hemoglobin (Bld) [Mass/Vol] 13.3 g/dL Critically low 14.0-18.0 [facility] Comment on above: Performed By: #### L ACT #### [facility] [address] [place] [address] Dr. Pratibha Stevenson IG # 0.02 10e3/ul Normal 0.00-0.03 [facility] Comment on above: Performed By: #### L ACT #### [facility] [address] [place] [address] Dr. Pratibha Stevenson IG % 0.3 % Normal 0.0-0.5 [facility] Comment on above: Performed By: #### L ACT #### [facility] [address] [place] [address] Dr. Pratibha Stevenson LYMPH # 2.1 103/ul Normal 1.2-3.8 [facility] Comment on above: Performed By: #### L ACT #### [facility] [address] [place] [address] Dr. Pratibha Stevenson Lymphocytes/100 WBC (Bld) 35.3 % Normal 20.5-60.0 [facility] Comment on above: Performed By: #### L ACT #### [facility] [address] [place] [address] Dr. Pratibha Stevenson MANUAL DIFF REQ NO Normal [facility] Comment on above: Performed By: #### L ACT #### [facility] [address] [place] [address] Dr. Pratibha Stevenson MCH (RBC) [Entitic mass] 30.7 pg Normal 25.9-34.0 [facility] Comment on above: Performed By: #### L ACT #### [facility] [address] [address] [address] Pratibha Stevenson MCHC (RBC) [Mass/Vol] 34.3 g/dL Normal 29.9-35.2 [facility] Comment on above: Performed By: #### L ACT #### [facility] [address] [place] [address] Dr. Pratibha Stevenson MCV (RBC) [Entitic vol] 89.6 fL Normal 80.0-94.0 [facility] Comment on above: Performed By: #### L ACT #### [facility] [address] [place] [address] Dr. Pratibha Stevenson MONO # 0.4 103/ul Normal 0.3-0.8 [facility] Comment on above: Performed By: #### L ACT #### [facility] [address] [place] [address] Dr. Pratibha Stevenson Monocytes/100 WBC (Bld) 7.4 % Normal 1.7-12.0 [facility] Comment on above: Performed By: #### L ACT #### [facility] [address] [place] [address] Dr. Pratibha Stevenson NEUT # 3.1 103/ul Normal 1.4-6.5 [facility] Comment on above: Performed By: #### L ACT #### [facility] [address] [place] [address] Dr. Pratibha Stevenson Neutrophils/100 WBC (Bld) 53.5 % Normal 43.0-75.0 [facility] Comment on above: Performed By: #### L ACT #### [facility] [address] [place] [address] Dr. Pratibha Stevenson Platelet mean volume (Bld) [Entitic vol] 10.2 fL Normal 9.5-13.5 [facility] Comment on above: Performed By: #### L ACT #### [facility] [address] [place] [address] Dr. Pratibha Stevenson PLT 197 103/ul Normal 150-450 [facility] Comment on above: Performed By: #### L ACT #### [facility] [address] [place] [address] Dr. Pratibha Stevenson RBC 4.33 106/ul Critically low 4.70-6.[address] [facility] Comment on above: Performed By: #### L ACT #### [facility] [address] [place] [address] Dr. Pratibha Stevenson WBC 5.8 103/ul Normal 4.0-11.0 [facility] Comment on above: Performed By: #### L ACT #### [facility] [address] [place] [address] Dr. Pratibha Stevenson LIPASEon 05-10-2022 Lipase [Catalytic activity/Vol] 134.0 U/L Normal 73.0-393.0 [facility] Comment on above: Performed By: #### L ACT #### [facility] [address] [place] [address] Dr. Pratibha Stevenson PROF 14(COMP METB)on 023 Albumin [Mass/Vol] 3.1 g/dL Critically low 3.4-5.0 [facility] [place] [facility] Comment on above: Performed By: #### L ACT #### [facility] [address] [place] [address] Dr. Pratibha Stevenson Albumin/Globulin [Mass ratio] 1.1 {ratio} Normal [facility] Comment on above: Performed By: #### L ACT #### [facility] [address] [place] [address] Dr. Pratibha Stevenson ALP [Catalytic activity/Vol] 68 U/L Normal 46-116 [facility] Comment on above: Performed By: #### L ACT #### [facility] [address] [place] [address] Dr. Pratibha Stevenson ALT [Catalytic activity/Vol] 25 U/L Normal 16-63 [facility] Comment on above: Performed By: #### L ACT #### [facility] [address] [place] [address] Dr. Pratibha Stevenson Anion gap [Moles/Vol] 11.1 mmol/L Normal [facility] Comment on above: Performed By: #### L ACT #### [facility] [address] [place] [address] Dr. Pratibha Stevenson AST [Catalytic activity/Vol] 16 U/L Normal 15-37 [facility] Comment on above: Performed By: #### L ACT #### [facility] [address] [address] [address] Pratibha Stevenson Bilirubin [Mass/Vol] 0.5 mg/dL Normal 0.2-1.0 [facility] Comment on above: Performed By: #### L ACT #### [facility] [address] [address] [address] Pratibha Stevenson Calcium [Mass/Vol] 8.6 mg/dL Normal 8.5-10.1 [facility] Comment on above: Performed By: #### L ACT #### [facility] [address] [address] [address] Pratibha Stevenson Chloride [Moles/Vol] 105 mmol/L Normal 98-107 [facility] Comment on above: Performed By: #### L ACT #### [facility] [address] [address] [address] Pratibha Stevenson CO2 [Moles/Vol] 26.6 mmol/L Normal 21.0-32.0 [facility] Comment on above: Performed By: #### L ACT #### [facility] [address] [address] [address] Pratibha Stevenson Creatinine [Mass/Vol] 1.12 mg/dL Normal 0.70-1.30 [facility] Comment on above: Performed By: #### L ACT #### [facility] [address] [address] [address] Pratibha Stevenson EGFR-AF AFGHAN >60 Normal >=60 [facility] [place] Comment on above: Performed By: #### L ACT #### [facility] [address] [address] [address] Pratibha Stevenson EGFR-NON AF AFGHAN >60 Normal >=60 [facility] Comment on above: Performed By: #### L ACT #### [facility] [address] [address] [address] Pratibha Stevenson Globulin (S) [Mass/Vol] 2.7 g/dL Normal [facility] Comment on above: Performed By: #### L ACT #### [facility] [address] [address] [address] Pratibha Stevenson Glucose [Mass/Vol] 86 mg/dL Normal 74-106 [facility] Comment on above: Performed By: #### L ACT #### [facility] [address] [address] [address] Pratibha Stevenson Potassium [Moles/Vol] 3.7 mmol/L Normal 3.5-5.1 [facility] Comment on above: Performed By: #### L ACT #### [facility] [address] [address] [address] Pratibha Stevenson Protein [Mass/Vol] 5.8 g/dL Critically low 6.4-8.2 [facility] Comment on above: Performed By: #### L ACT #### [facility] [address] [address] [address] Pratibha Stevenson Sodium [Moles/Vol] 139 mmol/L Normal 136-145 [facility] Comment on above: Performed By: #### L ACT #### [facility] [address] [address] [address] Pratibha Stevenson Urea nitrogen [Mass/Vol] 12.0 mg/dL Normal 7.0-18.0 [facility] Comment on above: Performed By: #### L ACT #### [facility] [address] [address] [address] Pratibha Stevenson Urea nitrogen/Creatinine [Mass ratio] 10.7 mg/mg Normal [facility] Comment on above: Performed By: #### L ACT #### [facility] [address] [id number] Pratibha Stevenson US KIDNEYSon 05-10-2022 US [...] by: SAUMYA MARSH Date: 2022-05-10 08:37 Normal [facility] XR KUB 1 VIEWon 05-10-2022 XR [...] by: MAUREEN GARDNER Date: 2022-05-10 06:55 Normal [facility] AMYLASEon 05-09-2022 Amylase [Catalytic activity/Vol] 44 U/L Normal 25-115 [facility] Comment on above: Performed By: #### C BC #### [facility] [address] [place], [place] [address] Dr. Pratibha Stevenson CBC AUTO DIFFon 05-09-2022 BASO # 0.1 103/ul Normal 0.0-0.1 [facility] Comment on above: Performed By: #### S SCRN, GRASTCX #### [facility] [address] [place], [place] [address] Dr. Pratibha Stevenson Basophils/100 WBC (Bld) 0.9 % Normal 0.2-2.0 [facility] Comment on above: Performed By: #### S JOSE ARMANDO GRASTCX #### [facility] [address] [place] [address] Dr. Pratibha Stevenson EO # 0.2 103/ul Normal 0.0-0.7 [facility] Comment on above: Performed By: #### S JOSE ARMANDO GRASTCX #### [facility] [address] [place] [address] Dr. Pratibha Stevenson Eosinophils/100 WBC (Bld) 2.6 % Normal 0.9-7.0 [facility] Comment on above: Performed By: #### S JOSE ARMANDO GRASTCX #### [facility] [address] [place] [address] Dr. Pratibha Stevenson Erythrocyte distribution width (RBC) [Ratio] 11.9 % Normal 11.0-15.0 [facility] Comment on above: Performed By: #### S JOSE ARMANDO GRASTCX #### [facility] [address] [place] [address] Dr. Pratibha Stevenson Hematocrit (Bld) [Volume fraction] 38.8 % Critically low 42.0-54.0 [facility] Comment on above: Performed By: #### S JOSE ARMANDO GRASTCX #### [facility] [address] [place] [address] Dr. Pratibha Stevenson Hemoglobin (Bld) [Mass/Vol] 13.9 g/dL Critically low 14.0-18.0 [facility] Comment on above: Performed By: #### S SCRN, GRASTCX #### [facility] [address] [place] [address] Dr. Pratibha Stevenson IG # 0.02 10e3/ul Normal 0.00-0.03 [facility] Comment on above: Performed By: #### S SCRN, GRASTCX #### [facility] [address] [place] [address] Dr. Pratibha Stevenson IG % 0.4 % Normal 0.0-0.5 [facility] Comment on above: Performed By: #### S SCRN, GRASTCX #### [facility] [address] [place] [address] Dr. Pratibha Stevenson LYMPH # 2.0 103/ul Normal 1.2-3.8 [facility] Comment on above: Performed By: #### S SCRN, GRASTCX #### [facility] [address] [place] [address] Dr. Pratibha Stevenson Lymphocytes/100 WBC (Bld) 34.9 % Normal 20.5-60.0 [facility] Comment on above: Performed By: #### S SCRN, GRASTCX #### [facility] [address] [place] [address] Dr. Pratibha Stevenson MANUAL DIFF REQ NO Normal [facility] Comment on above: Performed By: #### S SCRN, GRASTCX #### [facility] [address] [place] [address] Dr. Pratibha Stevenson MCH (RBC) [Entitic mass] 31.0 pg Normal 25.9-34.0 [facility] Comment on above: Performed By: #### S SCRN, GRASTCX #### [facility] [address] [place] [address] Dr. Pratibha Stevenson MCHC (RBC) [Mass/Vol] 35.8 g/dL Critically high 29.9-35.2 [facility] Comment on above: Performed By: #### S SCRN, GRASTCX #### [facility] [address] [place] [address] Dr. Pratibha Stevenson MCV (RBC) [Entitic vol] 86.6 fL Normal 80.0-94.0 [facility] Comment on above: Performed By: #### S SCRN, GRASTCX #### [facility] [address] [place] [address] Dr. Pratibha Stevenson MONO # 0.4 103/ul Normal 0.3-0.8 [facility] Comment on above: Performed By: #### S SCRN, GRASTCX #### [facility] [address] [place] [address] Dr. Pratibha Stevenson Monocytes/100 WBC (Bld) 6.2 % Normal 1.7-12.0 [facility] Comment on above: Performed By: #### S JOSE ARMANDO GRASTCX #### [facility] [address] [place] [address] Dr. Pratibha Stevenson NEUT # 3.1 103/ul Normal 1.4-6.5 [facility] Comment on above: Performed By: #### S JOSE ARMANDO GRASTCX #### [facility] [address] [place] [address] Dr. Pratibha Stevenson Neutrophils/100 WBC (Bld) 55.0 % Normal 43.0-75.0 [facility] Comment on above: Performed By: #### S JOSE ARMANDO GRASTCX #### [facility] [address] [place] [address] Dr. Pratibha Stevenson Platelet mean volume (Bld) [Entitic vol] 9.7 fL Normal 9.5-13.5 [facility] Comment on above: Performed By: #### Ruthann SUÁREZ GRASTCX #### [facility] [address] [place] [address] Dr. Pratibha Stevenson PLT 201 103/ul Normal 150-450 [facility] Comment on above: Performed By: #### Ruthann SUÁREZ GRASTCX #### [facility] [facility] [address] [place] [address] Dr. Pratibha Stevenson RBC 4.48 106/ul Critically low 4.70-6.10 [facility] Comment on above: Performed By: #### S JOSE ARMANDO GRASTCX #### [facility] [address] [place] [address] Dr. Pratibha Stevenson WBC 5.7 103/ul Normal 4.0-11.0 [facility] Comment on above: Performed By: #### S JOSE ARMANDO GRASTCX #### [facility] [address] [place] [address] Dr. Pratibha Stevenson CULTURE URINEon 05-09-2022 CULTURE URINE Culture Observations : NO GROWTH. Normal [facility] Comment on above: Performed By: #### C BC #### [facility] [address] [place] [address] Dr. Pratibha Stevenson LIPASEon 05-09-2022 Lipase [Catalytic activity/Vol] 98.0 U/L Normal 73.0-393.0 [facility] Comment on above: Performed By: #### C BC #### [facility] [address] [place] [address] Dr. Pratibha Stevenson PROF 14(COMP METB)on 023 Albumin [Mass/Vol] 3.2 g/dL Critically low 3.4-5.0 [facility] Comment on above: Performed By: #### C BC #### [facility] [address] [place] [address] Dr. Pratibha tSevenson Albumin/Globulin [Mass ratio] 1.3 {ratio} Normal [facility] Comment on above: Performed By: #### C BC #### [facility] [address] [place] [address] Dr. Pratibha Stevenson ALP [Catalytic activity/Vol] 74 U/L Normal 46-116 [facility] Comment on above: Performed By: #### C BC #### [facility] [address] [place] [address] Dr. Pratibha Stevenson ALT [Catalytic activity/Vol] 25 U/L Normal 16-63 [facility] Comment on above: Performed By: #### C BC #### [facility] [address] [place] [address] Dr. Pratibha Stevenson Anion gap [Moles/Vol] 10.7 mmol/L Normal [facility] Comment on above: Performed By: #### C BC #### [facility] [address] [place] [address] Dr. Pratibha Stevenson AST [Catalytic activity/Vol] 18 U/L Normal 15-37 [facility] Comment on above: Performed By: #### C BC #### [facility] [address] [place] [address] Dr. Pratibha Stevenson Bilirubin [Mass/Vol] 0.7 mg/dL Normal 0.2-1.0 [facility] Comment on above: Performed By: #### C BC #### [facility] [address] [address] [address] Pratibha Stevenson Calcium [Mass/Vol] 8.5 mg/dL Normal 8.5-10.1 [facility] Comment on above: Performed By: #### C BC #### [facility] [address] [place] [address] Dr. Pratibha Stevenson Chloride [Moles/Vol] 106 mmol/L Normal 98-107 [facility] Comment on above: Performed By: #### C BC #### [facility] [address] [place] [address] Dr. Pratibha Stevenson CO2 [Moles/Vol] 27.1 mmol/L Normal 21.0-32.0 [facility] [place] Comment on above: Performed By: #### C BC #### [facility] [address] [place] [address] Dr. Pratibha Stevenson Creatinine [Mass/Vol] 1.16 mg/dL Normal 0.70-1.30 [facility] Comment on above: Performed By: #### C BC #### [facility] [address] [place] [address] Dr. Pratibha Stevenson EGFR-AF AFGHAN >60 Normal >=60 [facility] [place] Comment on above: Performed By: #### C BC #### [facility] [address] [place] [address] Dr. Pratibha Stevenson EGFR-NON AF AFGHAN >60 Normal >=60 [facility] Comment on above: Performed By: #### C BC #### [facility] [address] [place] [address] Dr. Pratibha Stevenson Globulin (S) [Mass/Vol] 2.5 g/dL Normal [facility] Comment on above: Performed By: #### C BC #### [facility] [address] [place] [address] Dr. Pratibha Stevenson Glucose [Mass/Vol] 90 mg/dL Normal 74-106 [facility] Comment on above: Performed By: #### C BC #### [facility] [address] [place] [address] Dr. Pratibha Stevenson Potassium [Moles/Vol] 3.8 mmol/L Normal 3.5-5.1 [facility] Comment on above: Performed By: #### C BC #### [facility] [address] [address] [address] Pratibha Stevenson Protein [Mass/Vol] 5.7 g/dL Critically low 6.4-8.2 [facility] Comment on above: Performed By: #### C BC #### [facility] [address] [address] [address] Pratibha Stevenson Sodium [Moles/Vol] 140 mmol/L Normal 136-145 [facility] Comment on above: Performed By: #### C BC #### [facility] [address] [address] [address] Pratibha Stevenson Urea nitrogen [Mass/Vol] 12.0 mg/dL Normal 7.0-18.0 [facility] Comment on above: Performed By: #### C BC #### [facility] [address] [address] [address] Pratibha Stevenson Urea nitrogen/Creatinine [Mass ratio] 10.3 mg/mg Normal [facility] Comment on above: Performed By: #### C BC #### [facility] [address] [place] [address] Dr. Pratibha Stevenson XR KUB 1 VIEWon [...] by: EDIS HERNÁNDEZ Date: 2022-05-09 05:31 Normal [facility] CBC AUTO DIFFon 05-08-2022 BASO # 0.1 103/ul Normal 0.0-0.1 [facility] Comment on above: Performed By: #### C BC #### [facility] [address] [place] [address] Dr. Pratibha Stevenson Basophils/100 WBC (Bld) 0.4 % Normal 0.2-2.0 [facility] Comment on above: Performed By: #### C BC #### [facility] [address] [place] [address] Dr. Pratibha Stevenson EO # 0.1 103/ul Normal 0.0-0.7 [facility] Comment on above: Performed By: #### C BC #### [facility] [address] [place] [address] Dr. Pratibha Stevenson Eosinophils/100 WBC (Bld) 1.0 % Normal 0.9-7.0 [facility] Comment on above: Performed By: #### C BC #### [facility] [address] [place] [address] Dr. Pratibha Stevenson Erythrocyte distribution width (RBC) [Ratio] 11.9 % Normal 11.0-15.0 [facility] Comment on above: Performed By: #### C BC #### [facility] [address] [place] [address] Dr. Pratibha Stevenson Hematocrit (Bld) [Volume fraction] 47.4 % Normal 42.0-54.0 [facility] Comment on above: Performed By: #### C BC #### [facility] [address] [place] [address] Dr. Pratibha Stevenson Hemoglobin (Bld) [Mass/Vol] 17.3 g/dL Normal 14.0-18.0 [facility] Comment on above: Performed By: #### C BC #### [facility] [address] [place] [address] Dr. Pratibha Stevenson IG # 0.05 10e3/ul Critically high 0.00-0.03 [facility] Comment on above: Performed By: #### C BC #### [facility] [address] [place] [address] Dr. Pratibha Stevenson IG % 0.4 % Normal 0.0-0.5 [facility] Comment on above: Performed By: #### C BC #### [facility] [address] [place] [address] Dr. Pratibha Stevenson LYMPH # 2.4 103/ul Normal 1.2-3.8 [facility] Comment on above: Performed By: #### C BC #### [facility] [address] [place] [address] Dr. Pratibha Stevenson Lymphocytes/100 WBC (Bld) 18.6 % Critically low 20.5-60.0 [facility] Comment on above: Performed By: #### C BC #### [facility] [address] [place] [address] Dr. Pratibha Stevenson MANUAL DIFF REQ NO Normal [facility] Comment on above: Performed By: #### C BC #### [facility] [address] [place] [address] Dr. Pratibha Stevenson MCH (RBC) [Entitic mass] 31.3 pg Normal 25.9-34.0 [facility] Comment on above: Performed By: #### C BC #### [facility] [address] [place] [address] Dr. Pratibha Stevenson MCHC (RBC) [Mass/Vol] 36.5 g/dL Critically high 29.9-35.2 [facility] Comment on above: Performed By: #### C BC #### [facility] [address] [place] [address] Dr. Pratibha Stevenson MCV (RBC) [Entitic vol] 85.7 fL Normal 80.0-94.0 [facility] Comment on above: Performed By: #### C BC #### [facility] [address] [place] [address] Dr. Pratibha Stevenson MONO # 0.6 103/ul Normal 0.3-0.8 [facility] Comment on above: Performed By: #### C BC #### [facility] [address] [place] [address] Dr. Pratibha Stevenson Monocytes/100 WBC (Bld) 5.0 % Normal 1.7-12.0 [facility] Comment on above: Performed By: #### C BC #### [facility] [address] [place] [address] Dr. Pratibha Stevenson NEUT # 9.6 103/ul Critically high 1.4-6.[address] [facility] Comment on above: Performed By: #### C BC #### [facility] [address] [place] [address] Dr. Pratibha Stevenson Neutrophils/100 WBC (Bld) 74.6 % Normal 43.0-75.0 [facility] Comment on above: Performed By: #### C BC #### [facility] [address] [place] [address] Dr. Pratibha Stevenson Platelet mean volume (Bld) [Entitic vol] 9.6 fL Normal 9.5-13.5 [facility] Comment on above: Performed By: #### C BC #### [facility] [address] [place] [address] Dr. Pratibha Stevenson PLT 286 103/ul Normal 150-450 [facility] Comment on above: Performed By: #### C BC #### [facility] [address] [place] [address] Dr. Pratibha Stevenson RBC 5.53 106/ul Normal 4.70-6.10 [facility] Comment on above: Performed By: #### C BC #### [facility] [address] [place] [address] Dr. Pratibha Stevenson WBC 12.8 103/ul Critically high 4.0-11.0 [facility] Comment on above: Performed By: #### C BC #### [facility] [address] [place] [address] ABD/PELV W CONon [...] CHAGO ROLLINS Date: 2022-05-08 18:37 Normal [facility]on SARS-CoV-2 (COVID-19) RNA MARIKA+probe Ql (Unsp spec) Not detected Normal NOT DETECTED [facility] Comment on above: Result Comment: When [...] for this test is supported by the [place] of [employer] and Human Service's declaration that [...] used). Performed By: #### C BC #### [facility] [address] [place] [address] Dr. Pratibha Stevenson ER URINE PROFILEon 3 Bilirubin Ql (U) SMALL Abnormal NEGATIVE [facility] [place] Comment on above: Performed By: #### C BC #### [facility] [address] [place] [address] Dr. Pratibha Stevenson Clarity (U) CLEAR Normal CLEAR [facility] Comment on above: Performed By: #### C BC #### [facility] [address] [place] [address] Dr. Pratibha Stevenson Color (U) DK. ORANGE Abnormal YELLOW [facility] Comment on above: Performed By: #### C BC #### [facility] [address] [place] [address] Dr. Pratibha DONALDSONAHD A micrscopic examination will be performed if indicated. Normal [facility] Comment on above: Performed By: #### C BC #### [facility] [address] [place] [address] Dr. Pratibha Stevenson Glucose Ql (U) Negative Normal NEGATIVE [facility] Comment on above: Performed By: #### C BC #### [facility] [address] [place] [address] Dr. Pratibha Stevenson Hemoglobin Ql (U) LARGE Abnormal NEGATIVE [facility] Comment on above: Performed By: #### C BC #### [facility] [address] [place] [address] Dr. Pratibha Stevenson Ketones Ql (U) TRACE Abnormal NEGATIVE [facility] Comment on above: Performed By: #### C BC #### [facility] [address] [place] [address] Dr. Pratibha Stevenson LEUKOCYTES Negative Normal NEGATIVE [facility] Comment on above: Performed By: #### C BC #### [facility] [address] [place] [address] Dr. Pratibha Stevenson Nitrite Ql (U) Negative Normal NEGATIVE [facility] Comment on above: Performed By: #### C BC #### [facility] [address] [place] [address] Dr. Pratibha Stevenson pH (U) 6.5 [pH] Normal 5-9 [facility] Comment on above: Performed By: #### C BC #### [facility] [address] [place] [address] Dr. Pratibha Stevenson Protein (U) [Mass/Vol] 100 mg/dL Abnormal NEGATIVE/ TRACE [facility] Comment on above: Performed By: #### C BC #### [facility] [address] [place] [address] Dr. Pratibha Stevenson SPEC GRAVITY 1.010 Normal 1.005-<=1.[address] [facility] Comment on above: Performed By: #### C BC #### [facility] [address] [place] [address] Dr. Pratibha Stevenson UR MICRO IND INDICATED Normal [facility] Comment on above: Performed By: #### C BC #### [facility] [address] [place] [address] Dr. Pratibha Stevenson Urobilinogen Qn (U) 1.0 {Butch'U}/dL Normal 0.2 - 1. 0 [facility] Comment on above: Performed By: #### C BC #### [facility] [address] [place] [address] Dr. Pratibha Stevenson LIPASEon 05-08-2022 Lipase [Catalytic activity/Vol] 417.0 U/L Critically high 73.0-393.0 [facility] Comment on above: Performed By: #### L ACT #### [facility] [address] [place] [address] Dr. Pratibha Stevenson PROF 14(COMP METB)on 023 Albumin [Mass/Vol] 4.5 g/dL Normal 3.4-5.0 [facility] Comment on above: Performed By: #### L ACT #### [facility] [address] [address] [address] Pratibha Stevenson Albumin/Globulin [Mass ratio] 1.3 {ratio} Normal [facility] Comment on above: Performed By: #### L ACT #### [facility] [address] [address] [address] Pratibha Stevenson ALP [Catalytic activity/Vol] 97 U/L Normal 46-116 [facility] Comment on above: Performed By: #### L ACT #### [facility] [address] [address] [address] Pratibha Stevenson ALT [Catalytic activity/Vol] 35 U/L Normal 16-63 [facility] Comment on above: Performed By: #### L ACT #### [facility] [address] [place] [address] Dr. Pratihba Stevenson Anion gap [Moles/Vol] 13.7 mmol/L Normal [facility] Comment on above: Performed By: #### L ACT #### [facility] [address] [address] [address] Pratibha Stevenson AST [Catalytic activity/Vol] 22 U/L Normal 15-37 [facility] Comment on above: Performed By: #### L ACT #### [facility] [address] [place] [address] Dr. Pratibha Stevenson Bilirubin [Mass/Vol] 0.7 mg/dL Normal 0.2-1.0 [facility] Comment on above: Performed By: #### L ACT #### [facility] [address] [place] [address] Dr. Pratibha Stevenson Calcium [Mass/Vol] 9.6 mg/dL Normal 8.5-10.1 [facility] Comment on above: Performed By: #### L ACT #### [facility] [address] [address] [address] Pratibha Stevenson Chloride [Moles/Vol] 99 mmol/L Normal 98-107 [facility] Comment on above: Performed By: #### L ACT #### [facility] [address] [address] [address] Pratibha Stevenson CO2 [Moles/Vol] 29.0 mmol/L Normal 21.0-32.0 [facility] Comment on above: Performed By: #### L ACT #### [facility] [address] [address] [address] Pratibha Stevenson Creatinine [Mass/Vol] 1.43 mg/dL Critically high 0.70-1.30 [facility] Comment on above: Performed By: #### L ACT #### [facility] [address] [address] [address] Pratibha Stevenson EGFR-AF AFGHAN >60 Normal >=60 [facility] Comment on above: Performed By: #### L ACT #### [facility] [address] [address] [address] Pratibha Stevenson EGFR-NON AF AFGHAN 58 mL/min/1.73m2 Critically low >=60 [facility] Comment on above: Performed By: #### L ACT #### [facility] [address] [address] [address] Pratibha Stevenson Globulin (S) [Mass/Vol] 3.5 g/dL Normal [facility] Comment on above: Performed By: #### L ACT #### [facility] [address] [address] [address] Pratibha Stevenson Glucose [Mass/Vol] 127 mg/dL Critically high 74-106 [facility] Comment on above: Performed By: #### L ACT #### [facility] [address] [address] [address] Pratibha Stevenson Potassium [Moles/Vol] 3.7 mmol/L Normal 3.5-5.1 [facility] Comment on above: Performed By: #### L ACT #### [facility] [address] [address] [address] Pratibha Stevenson Protein [Mass/Vol] 8.0 g/dL Normal 6.4-8.2 [facility] Comment on above: Performed By: #### L ACT #### [facility] [address] [address] [address] Pratibha Stevenson Sodium [Moles/Vol] 138 mmol/L Normal 136-145 [facility] Comment on above: Performed By: #### L ACT #### [facility] [address] [place] [address] Dr. Pratibha Stevenson Urea nitrogen [Mass/Vol] 13.0 mg/dL Normal 7.0-18.0 [facility] Comment on above: Performed By: #### L ACT #### [facility] [address] [place] [address] Dr. Pratibha Stevenson Urea nitrogen/Creatinine [Mass ratio] 9.1 mg/mg Normal [facility] Comment on above: Performed By: #### L ACT #### [facility] [address] [place] [address] Dr. Pratibha Stevenson URINE MICROSCOPIC ONLYon BACTERIA NONE SEEN Normal NONE SEEN [facility] Comment on above: Performed By: #### C BC #### [facility] [address] [place] [address] Dr. Pratibha Stevenson Bacteria identified Cx Nom (U) NOT INDICATED Normal [facility] Comment on above: Performed By: #### C BC #### [facility] [address] [place] [address] Dr. Pratibha Stevenson CAST NONE SEEN Normal NONE SEEN [facility] Comment on above: Performed By: #### C BC #### [facility] [address] [place] [address] Dr. Pratibha Stevenson Crystals LM Nom (Urine sed) NONE SEEN Normal NONE SEEN [facility] Comment on above: Performed By: #### C BC #### [facility] [address] [place] [address] Dr. Pratibha Stevenson Epithelial cells LM Ql (Urine sed) FEW Abnormal NONE SEEN /RARE [facility] Comment on above: Performed By: #### C BC #### [facility] [address] [place] [address] Dr. Pratibha Stevenson MUCOUS TRACE Abnormal NONE SEEN [facility] Comment on above: Performed By: #### C BC #### [facility] [address] [place] [address] Dr. Pratibha Stevenson RBC (U) [#/Vol] /uL Abnormal 0-2 [facility] Comment on above: Performed By: #### C BC #### [facility] [address] [place] [address] Dr. Pratibha Stevenson WBC 2-5 Abnormal NONE SEEN [facility] Comment on above: Performed By: #### C BC #### [facility] [address] [place] [address] Dr. Pratibah Stevenson XR CHEST 1 Von 05-08-2022 XR [...] RAMO ZEPEDA Date: 2022-05-08 17:40 Normal [facility] CBC AUTO DIFFon 03-23-2022 BASO # 0.1 103/ul Normal 0.0-0.1 [facility] Comment on above: Performed By: #### C BC #### [facility] [address] [place] [address] Dr. Pratibha Stevenson Basophils/100 WBC (Bld) 0.9 % Normal 0.2-2.0 [facility] Comment on above: Performed By: #### C BC #### [facility] [address] [place] [address] Dr. Pratibha Stevenson EO # 0.1 103/ul Normal 0.0-0.7 [facility] Comment on above: Performed By: #### C BC #### [facility] [address] [place] [address] Dr. Pratibha Stevenson Eosinophils/100 WBC (Bld) 1.7 % Normal 0.9-7.0 [facility] Comment on above: Performed By: #### C BC #### [facility] [address] [place] [address] Dr. Pratibha Stevenson Erythrocyte distribution width (RBC) [Ratio] 12.3 % Normal 11.0-15.0 [facility] Comment on above: Performed By: #### C BC #### [facility] [address] [place] [address] Dr. Pratibha Stevenson Hematocrit (Bld) [Volume fraction] 47.2 % Normal 42.0-54.0 [facility] Comment on above: Performed By: #### C BC #### [facility] [address] [place] [address] Dr. Pratibha Stevenson Hemoglobin (Bld) [Mass/Vol] 16.0 g/dL Normal 14.0-18.0 [facility] Comment on above: Performed By: #### C BC #### [facility] [address] [place] [address] Dr. Pratibha Stevenson IG # 0.03 10e3/ul Normal 0.00-0.03 [facility] Comment on above: Performed By: #### C BC #### [facility] [address] [place] [address] Dr. Pratibha Stevenson IG % 0.4 % Normal 0.0-0.5 [facility] Comment on above: Performed By: #### C BC #### [facility] [address] [place] [address] Dr. Pratibha Stevenson LYMPH # 2.5 103/ul Normal 1.2-3.8 [facility] Comment on above: Performed By: #### C BC #### [facility] [address] [place] [address] Dr. Pratibha Stevenson Lymphocytes/100 WBC (Bld) 30.4 % Normal 20.5-60.0 [facility] Comment on above: Performed By: #### C BC #### [facility] [address] [place] [address] Dr. Pratibha Stevenson MANUAL DIFF REQ NO Normal [facility] Comment on above: Performed By: #### C BC #### [facility] [address] [place] [address] Dr. Pratibha Stevenson MCH (RBC) [Entitic mass] 30.9 pg Normal 25.9-34.0 [facility] Comment on above: Performed By: #### C BC #### [facility] [address] [address] [address] Pratibha Stevenson MCHC (RBC) [Mass/Vol] 33.9 g/dL Normal 29.9-35.2 [facility] Comment on above: Performed By: #### C BC #### [facility] [address] [address] [address] Pratibha Stevenson MCV (RBC) [Entitic vol] 91.3 fL Normal 80.0-94.0 [facility] Comment on above: Performed By: #### C BC #### [facility] [address] [place] [address] Dr. Pratibha Stevenson MONO # 0.6 103/ul Normal 0.3-0.8 [facility] Comment on above: Performed By: #### C BC #### [facility] [address] [place] [address] Dr. Pratibha Stevenson Monocytes/100 WBC (Bld) 7.6 % Normal 1.7-12.0 [facility] Comment on above: Performed By: #### C BC #### [facility] [address] [place] [address] Dr. Pratibha Stevenson NEUT # 4.8 103/ul Normal 1.4-6.5 [facility] Comment on above: Performed By: #### C BC #### [facility] [address] [place] [address] Dr. Pratibha Stevenson Neutrophils/100 WBC (Bld) 59.0 % Normal 43.0-75.0 [facility] Comment on above: Performed By: #### C BC #### [facility] [address] [place] [address] Dr. Pratibha Stevenson Platelet mean volume (Bld) [Entitic vol] 10.2 fL Normal 9.5-13.5 [facility] Comment on above: Performed By: #### C BC #### [facility] [address] [place] [address] Dr. Pratibha Stevenson PLT 258 103/ul Normal 150-450 [facility] Comment on above: Performed By: #### C BC #### [facility] [address] [address] [address] Pratibha Stevenson RBC 5.17 106/ul Normal 4.70-6.10 [facility] Comment on above: Performed By: #### C BC #### [facility] [address] [address] [address] Pratibha Stevenson WBC 8.1 103/ul Normal 4.0-11.0 [facility] Comment on above: Performed By: #### C BC #### [facility] [id number] Pratibha Stevenson CT ABD/PELVIS WO CONon [...] SHARON GODINEZ Date: 2022-03-22 23:40 Normal [facility] PROF 14(COMP METB)on 022 Albumin [Mass/Vol] 4.2 g/dL Normal 3.4-5.0 [facility] Comment on above: Performed By: #### L ACT #### [facility] [address] [address] [address] Pratibha Stevenson Albumin/Globulin [Mass ratio] 1.2 {ratio} Normal [facility] Comment on above: Performed By: #### L ACT #### [facility] [address] [place] [address] Dr. Pratibha Stevenson ALP [Catalytic activity/Vol] 84 U/L Normal 46-116 [facility] Comment on above: Performed By: #### L ACT #### [facility] [address] [place] [address] Dr. Pratibha Stevenson ALT [Catalytic activity/Vol] 32 U/L Normal 16-63 [facility] Comment on above: Performed By: #### L ACT #### [facility] [address] [place] [address] Dr. Pratibha Stevenson Anion gap [Moles/Vol] 10.6 mmol/L Normal [facility] Comment on above: Performed By: #### L ACT #### [facility] [address] [place] [address] Dr. Pratibha Stevenson AST [Catalytic activity/Vol] 18 U/L Normal 15-37 [facility] Comment on above: Performed By: #### L ACT #### [facility] [address] [place] [address] Dr. Pratibha Stevenson Bilirubin [Mass/Vol] 0.4 mg/dL Normal 0.2-1.0 [facility] Comment on above: Performed By: #### L ACT #### [facility] [address] [place] [address] Dr. Pratibha Stevenson Calcium [Mass/Vol] 9.8 mg/dL Normal 8.5-10.1 [facility] Comment on above: Performed By: #### L ACT #### [facility] [address] [place] [address] Dr. Pratibha Stevenson Chloride [Moles/Vol] 103 mmol/L Normal 98-107 [facility] Comment on above: Performed By: #### L ACT #### [facility] [address] [place] [address] Dr. Pratibha Stevenson CO2 [Moles/Vol] 28.2 mmol/L Normal 21.0-32.0 [facility] [place] Comment on above: Performed By: #### L ACT #### [facility] [address] [address] [address] Pratibha Stevenson Creatinine [Mass/Vol] 1.24 mg/dL Normal 0.70-1.30 [facility] Comment on above: Performed By: #### L ACT #### [facility] [address] [address] [address] Pratibha Stevenson EGFR-AF AFGHAN >60 Normal >=60 [facility] [place] Comment on above: Performed By: #### L ACT #### [facility] [address] [address] [address] Pratibha Stevenson EGFR-NON AF AFGHAN >60 Normal >=60 [facility] Comment on above: Performed By: #### L ACT #### [facility] [address] [place] [address] Dr. Pratibha Stevenson Globulin (S) [Mass/Vol] 3.6 g/dL Normal [facility] Comment on above: Performed By: #### L ACT #### [facility] [address] [place] [address] Dr. Pratibha Stevenson Glucose [Mass/Vol] 102 mg/dL Normal 74-106 [facility] Comment on above: Performed By: #### L ACT #### [facility] [address] [place] [address] Dr. Pratibha Stevenson Potassium [Moles/Vol] 3.8 mmol/L Normal 3.5-5.1 [facility] Comment on above: Performed By: #### L ACT #### [facility] [address] [address] [address] Pratibha Stevenson Protein [Mass/Vol] 7.8 g/dL Normal 6.4-8.2 [facility] Comment on above: Performed By: #### L ACT #### [facility] [address] [place] [address] Dr. Pratibha Stevenson Sodium [Moles/Vol] 138 mmol/L Normal 136-145 [facility] Comment on above: Performed By: #### L ACT #### [facility] [address] [place], [place] [address] Dr. Pratibha Stevenson Urea nitrogen [Mass/Vol] 18.0 mg/dL Normal 7.0-18.0 [facility] Comment on above: Performed By: #### L ACT #### [facility] [address] [place], [place] [address] Dr. Pratibha Stevenson Urea nitrogen/Creatinine [Mass ratio] 14.5 mg/mg Normal [facility] Comment on above: Performed By: #### L ACT #### [facility] [address] [place], [place] [address] Dr. Pratibha Stevenson Vital Signs Date Time Vital Sign Value Performing Clinician Faci lity 11-12-2024 10:29-0400 Diastolic blood pressure 89 mm[Hg] Latricia Garcia MD Work Phone: [facility] 11-12-2024 10:29-0400 Systolic blood pressure 148 mm[Hg] Latricia Garcia MD Work Phone: [facility] 11-12-2024 10:20-0400 Body height 175.26 cm Latricia Garcia MD Work Phone: [facility] 11-12-2024 10:20-0400 Body mass index (BMI) [Ratio] 31.4 kg/m2 Latricia Garcia MD Work Phone: [facility] 11-12-2024 10:20-0400 Body weight 96.61 kg Latricia Garcia MD Work Phone: [facility] 11-12-2024 10:20-0400 Heart rate 69 /min Latricia Garcia MD Work Phone: [facility] 11-12-2024 10:20-0400 Respiratory rate 16 /min Latricia Garcia MD Work Phone: [facility] 11-12-2024 10:20-0400 SaO2% (BldA) [Mass fraction] 99 % Latricia Garcia MD Work Phone: [facility] 06-12-2024 10:48-0500 Body height 175.3 cm Armando Meek PA-C Work Phone: [facility] [employer] [facility] 06-12-2024 10:48-0500 Body mass index (BMI) [Ratio] 33.82 kg/m2 Armando Meek PA-C Work Phone: [facility] [employer] [facility] 06-12-2024 10:48-0500 Body weight 103.87 kg Armando Meek PA-C Work Phone: [facility] [employer] [facility] 06-12-2024 10:48-0500 Diastolic blood pressure 88 mm[Hg] Armando Meek PA-C Work Phone: [facility] [employer] [facility] 06-12-2024 10:48-0500 Heart rate 69 /min Armando Meek PA-C Work Phone: [facility] [employer] [facility] 06-12-2024 10:48-0500 Systolic blood pressure 132 mm[Hg] Armando Meek PA-C Work Phone: [facility] [employer] [facility] 05-17-2024 08:48-0500 Body height 175.3 cm Lisa Ceballos MD Work Phone: [facility] [employer] 05-17-2024 08:48-0500 Body mass index (BMI) [Ratio] 33.65 kg/m2 Lisa Ceballos MD Work Phone: [facility] [employer] 05-17-2024 08:48-0500 Body weight 103.42 kg Lisa Ceballos MD Work Phone: [facility] [employer] [facility] 05-17-2024 08:48-0500 Diastolic blood pressure 68 mm[Hg] [facility]allos [email or web address] 05-17-2024 08:48-0500 Heart rate 75 /min Lisa Ceballos MD Work Phone: [facility] [employer] [facility] 05-17-2024 08:48-0500 SaO2% (BldA) [Mass fraction] 97 % Lisa Ceballos MD Work Phone: [facility] 05-17-2024 08:48-0500 Systolic blood pressure 100 mm[Hg] Lisa Ceballos MD Work Phone: [facility] [employer] [facility] 04-19-2024 09:12-0500 Body height 175.3 cm Armando Meek PA-C Work Phone: [facility] [employer] [facility] 04-19-2024 09:12-0500 Body mass index (BMI) [Ratio] 32.03 kg/m2 Armando Meek PA-C Work Phone: [facility] [employer] [facility] 04-19-2024 09:12-0500 Body weight 98.43 kg Armando Meek PA-C Work Phone: [facility] [employer] [facility] 04-19-2024 09:12-0500 Diastolic blood pressure 83 mm[Hg] Armando Meek PA-C Work Phone: [facility] [employer] [facility] 04-19-2024 09:12-0500 Heart rate 88 /min Armando Meek PA-C Work Phone: [facility] [employer] [facility] 04-19-2024 09:12-0500 Systolic blood pressure 135 mm[Hg] Armando Meek PA-C Work Phone: [facility] [employer] [facility] 04-12-2024 15:20-0500 Body height 175.3 cm Ciera Torres MD Work Phone: [facility] 04-12-2024 15:20-0500 Body mass index (BMI) [Ratio] 31.94 kg/m2 Ciera Torres MD Work Phone: [facility] 04-12-2024 15:20-0500 Body temperature 98.1 [degF] Ciera Torres MD Work Phone: [facility] [employer] [facility] 04-12-2024 15:20-0500 Body weight 98.16 kg Ciera Torres MD Work Phone: [facility] 04-12-2024 15:20-0500 Diastolic blood pressure 78 mm[Hg] Ciera Torres MD Work Phone: [facility] 04-12-2024 15:20-0500 Heart rate 82 /min Ciera Torres MD Work Phone: [facility] 04-12-2024 15:20-0500 SaO2% (BldA) [Mass fraction] 99 % Ciera Torres MD Work Phone: [facility] 04-12-2024 15:20-0500 Systolic blood pressure 123 mm[Hg] Ciera Torres MD Work Phone: [facility] 04-08-2024 10:17-0500 Body height 175.3 cm Lisa Ceballos MD Work Phone: [facility] 04-08-2024 10:17-0500 Body mass index (BMI) [Ratio] 32.34 kg/m2 Lisa Ceballos MD Work Phone: [facility] 04-08-2024 10:17-0500 Body weight 99.34 kg Lisa Ceballos MD Work Phone: [facility] 04-08-2024 10:17-0500 Diastolic blood pressure 86 mm[Hg] Lisa Ceballos MD Work Phone: [facility] 04-08-2024 10:17-0500 Heart rate 80 /min Lisa Ceballos MD Work Phone: [facility] 04-08-2024 10:17-0500 SaO2% (BldA) [Mass fraction] 97 % Lisa Ceballos MD Work Phone: [facility] 04-08-2024 10:17-0500 Systolic blood pressure 118 mm[Hg] Lisa Ceballos MD Work Phone: [facility] 03-26-2024 09:05-0500 Body height 175.3 cm Armando Meek PA-C Work Phone: [facility] 03-26-2024 09:05-0500 Body mass index (BMI) [Ratio] 32.22 kg/m2 Armando Meek PA-C [facility] Phone[facility] 03-26-2024 09:05-0500 Body weight 98.97 kg Armando Meek LEORA-C [email or web address] 03-26-2024 09:05-0500 Diastolic blood pressure 66 mm[Hg] Armando Meek LEORA-C [email or web address] 03-26-2024 09:05-0500 Heart rate 71 /min Armando Meek LEORA-C [email or web address] 03-26-2024 09:05-0500 Systolic blood pressure 124 mm[Hg] Armando Fantasma COREY-C Work Phone: [facility] 03-02-2024 11:02-0400 Body temperature 98.8 [degF] Kym Vidal MD Work Phone: [email or web address] 03-02-2024 11:02-0400 Diastolic blood pressure 72 mm[Hg] Kym Vidal MD Work Phone: [email or web address] 03-02-2024 11:02-0400 Heart rate 83 /min Kym Vidal MD Work Phone: [email or web address] 03-02-2024 11:02-0400 Respiratory rate 16 /min Kym Vidal MD Work Phone: [email or web address] 03-02-2024 11:02-0400 SaO2% (BldA) [Mass fraction] 98 % Kym Vidal MD Work Phone: [email or web address] 03-02-2024 11:02-0400 Systolic blood pressure 120 mm[Hg] Kym Vidal MD Work Phone: [email or web address] 03-01-2024 03:44-0400 Body mass index (BMI) [Ratio] 31.82 kg/m2 Kym Vidal MD Work Phone: [email or web address] 03-01-2024 03:44-0400 Body weight 97.75 kg Kym Vidal MD Work Phone: [facility] 02-27-2024 00:30-0400 Body height 175.3 cm Kym Vidal MD Work Phone: [facility] 07-21-2022 08:57-0400 Blood Pressure Location Shirley Lue [facility] 07-21-2022 08:57-0400 Diastolic blood pressure 69 mm[Hg] Shirley Lue [facility] 07-21-2022 08:57-0400 Heart rate 74 /min Shirley Lue [facility] 07-21-2022 08:57-0400 Systolic blood pressure 133 mm[Hg] Shirley Lue [facility] 07-13-2022 09:17-0400 Blood Pressure Location Shirley Lue [facility] 07-13-2022 09:17-0400 Diastolic blood pressure 68 mm[Hg] Shirley Lue [facility] 07-13-2022 09:17-0400 Heart rate 73 /min Shirley Lue [facility] 07-13-2022 09:17-0400 Systolic blood pressure 124 mm[Hg] Shirley Lue [facility] Encounters Encounter Date Encounter Type Care Provider Facility Start: 11-12-2024 End: 11-12-2024 ambulatory Latricia Garcia MD Work Phone: [facility] Work Phone: Start: 11-12-2024 End: 11-12-2024 Patient encounter procedure Ashley Durand MD -[facility] Work Phone: Start: 09-30-2024 End: 10-02-2024 ambulatory [facility]ICIA [facility] Start: 09-30-2024 End: 10-02-2024 Subsequent hospital visit by physician [facility] Tilt Table [facility] Non-Invasive Card[facility] Comment on above: Syncope, unspecified syncope type Start: 09-04-2024 End: 09-04-2024 ambulatory Maureen GIRON Facility:[facility] Start: 08-20-2024 ambulatory Maureen GIRON Facility:[facility] [place] Start: 07-15-2024 End: 07-16-2024 Refill Amber Marcus RN [facility] Comment on above: Migraine without aur a and without status migrainosus, not intractable Start: 06-13-2024 End: 06-13-2024 Telephone encounter [facility] Comment on above: New Patient Start: 06-12-2024 End: 06-12-2024 Office outpatient visit 40 minutes [facility] Work Phone: [facility] [place] Comment on above: Psychogenic nonepile ptic seizure (Primary Dx); Seizure-like activity (CMS-HCC); Multiple personality disorder (CMS-HCC); Migraine without aura and without status migrainosus, not intractable; Functional tremor Start: 06-12-2024 End: 06-12-2024 ambulatory [facility] Start: 05-30-2024 End: 05-30-2024 Telephone encounter Addie [facility] Comment on above: Seizures Start: 05-17-2024 End: 05-17-2024 Office outpatient visit 15 minutes Lisa Ceballos MD Work Phone: [facility] Comment on above: Recurrent syncope (P rimary Dx) Start: 05-17-2024 End: 05-17-2024 [facility] Start: 05-16-2024 End: 05-16-2024 Telephone encounter Diana Ledbetter PHOTOGRAPHIC SPECIALIST [facility] Start: 05-09-2024 End: 05-14-2024 [place] [facility] Start: 04-19-2024 End: 04-19-2024 ambulatory [facility] Start: 04-19-2024 End: 04-19-2024 Office outpatient visit 25 minutes Armando Meek PA-C Work Phone: [facility] Comment on above: Migraine without aur a and without status migrainosus, not intractable (Primary Dx); Seizure-like activity (CMS-HCC); Functional tremor Start: 04-12-2024 End: 04-12-2024 Office outpatient new 30 minutes Ciera Torres MD Work Phone: Debbi Yonug [facility] Comment on above: Pancytopenia ([facility]-HC C) Start: 04-12-2024 End: 04-17-2024 ambulatory CIERA TORRES [facility] Start: 04-11-2024 End: 04-11-2024 Emergency department patient visit [place] [facility] Start: 04-09-2024 End: 04-09-2024 ambulatory [facility] Start: 04-09-2024 End: 04-09-2024 [facility] Start: 04-08-2024 End: 04-08-2024 Office outpatient new 45 minutes Lisa Ceballos MD Work Phone: [facility] Comment on above: Recurrent syncope (P rimary Dx); Seizure ([facility]-HCC) Start: 04-08-2024 End: 04-08-2024 ambulatory [facility] Start: 04-05-2024 End: 04-05-2024 Telephone encounter [facility] Start: 04-03-2024 End: 04-03-2024 ambulatory [facility] Start: 04-01-2024 End: 04-01-2024 Telephone encounter Stefani Doshi [facility] Comment on above: information wrong on referral Start: 03-27-2024 End: 04-03-2024 Telephone encounter [facility] Comment on above: prior authorization Start: 03-26-2024 End: 03-26-2024 ambulatory ARMANDO MEEK [facility] Start: 03-26-2024 End: 03-26-2024 Office outpatient new 60 minutes Armando COREY-Irene Work Phone: [facility] Comment on above: Seizure ([facility]-HCC) (P rimary Dx); Migraine without aura and without status migrainosus, not intractable; Status migrainosus; Recurrent syncope; Pancytopenia (CMS-HCC); Functional tremor Start: 03-25-2024 End: 03-25-2024 Telephone encounter Breanna [facility] Comment on above: REFERRAL Start: 02-27-2024 End: 03-02-2024 Evaluation and management of inpatient Kym Vidal MD Work Phone: [facility] Comment on above: Pancytopenia (HCC) ( Primary Dx); Hip pain, unspecified laterality Start: 02-26-2024 End: 02-26-2024 Emergency department patient visit LATRICIA GARCIA [facility] Start: 06-14-2023 End: 06-14-2023 Subsequent hospital visit by physician Manjit Waller [facility] Comment on above: Arrived Start: 06-12-2023 End: 06-12-2023 Subsequent hospital visit by physician Manjit Waller [facility] Comment on above: Arrived Start: 06-09-2023 End: 06-09-2023 Subsequent hospital visit by physician Flash Goodwin PTA [facility] Comment on above: Arrived Start: 08-11-2022 End: 08-11-[address] LATRICIA GARCIA . Facility:[facility] Start: 07-22-2022 End: 07-23-[address] LATRICIA GARCIA . Facility:[facility] Start: 07-21-2022 End: 07-21-2022 Patient encounter procedure Shirley Murrell [facility] Start: 07-20-2022 End: 07-20-[address] LATRICIA GARCIA . Facility:[facility] Start: 07-13-2022 End: 07-13-2022 Patient encounter procedure Shirley Murrell [facility] Start: 07-06-2022 End: 07-07-2022 ambulatory SHIRLEY MURRELL . Facility:[facility] Start: 05-23-2022 End: 05-23-2022 Patient encounter procedure Shirley Murrell [facility] Start: 05-08-2022 End: 05-12-[address] LATRICIA GARCIA . Facility:[facility] Start: 03-23-2022 End: 03-23-[address] LATRICIA GARCIA . Facility: Procedures Date Procedure Procedure Detail Performing Clinician Start: 09-30-2024 Cardiovascular function eval w/tilt table w/mntr Latricia Garcia MD Work Phone: Start: 06-12-2024 Follow-up visit Follow-up ARMANDO MEEK Start: 04-19-2024 Follow-up visit Follow-up ARMANDO MEEK Start: 03-26-2024 Adult depression screening assessment Armando COREY-Irene Work Phone: Start: 03-02-2024 Rhythm ecg 1-3 leads w/interpretation & report Unknown Provider Result Start: 03-02-2024 Anion gap [Moles/Vol] Maureen degroot DO Work Phone: Start: 03-02-2024 Basic metabolic panel calcium total Maureen Hampton DO Work Phone: Start: 03-02-2024 GLOMERULAR FILTRATION RATE, ESTIMATED Maureen Hampton DO Work Phone: Start: 03-02-2024 SCAN OF BLOOD SMEAR Jenny Alvarez IT DIRECTOR - [employer] Work Phone: Start: 03-01-2024 Rhythm ecg 1-3 leads w/interpretation & report Unknown Provider Result Start: 03-01-2024 MYELOID MALIGNANCIES MUTATION PANEL Ruth Wyman MD Work Phone: Start: 03-01-2024 Diagnostic bone marrow biopsies Jenny Alvarez APRN [facility] Work Phone: Start: 03-01-2024 Rhythm ecg 1-3 leads w/interpretation & report Unknown Provider Result Start: 03-01-2024 Blood count complete auto&auto difrntl wbc Jenny Alvarez IT DIRECTOR [employer] [facility] Work Phone: Start: 03-01-2024 SCAN OF BLOOD SMEAR Jenny Alvarez IT DIRECTOR [facility] Work Phone: Start: 02-29-2024 End: 02-29-2024 Ecg routine ecg w/least 12 lds i&r only Ruth Wyman MD Work Phone: Start: 02-29-2024 Blood smear peripheral interp phys w/writ report Jenny Alvarez IT DIRECTOR [employer] [facility] Work Phone: Start: 02-29-2024 DIAGNOSTIC QUAL BCR-ABL1 ASSAY W REFLEX TO P190 OR P210 QUANT ASSAYS Jenny Alvarez IT DIRECTOR - [facility] Work Phone: Start: 02-29-2024 Calcium ionized Maureen Barriosen D O Work Phone: Start: 02-29-2024 Anion [...] VIRUS (EBV) ANTIBODY PANEL I Yasmin Ambrosio IT DIRECTOR - [employer] Work Phone: Start: 02-28-2024 Mri brain brain stem w/o w/contrast material Jenny Gunter IT DIRECTOR - [employer] Work Phone: Start: 02-28-2024 End: 02-28-2024 Ecg [...] Start: 02-28-2024 Anion gap [Moles/Vol] Jenny Russoters IT DIRECTOR - [employer] Work Phone: Start: 02-28-2024 GLOMERULAR FILTRATION RATE, ESTIMATED Jenny Beavers Gunter IT DIRECTOR - [employer] Work Phone: Start: 02-28-2024 Lactate dehydrogenase ldh Ruth Wyman MD Work Phone: Start: 02-27-2024 VITAMIN B12 & FOLATE Yasmin Ambrosio IT DIRECTOR - [employer] Work Phone: Start: 02-27-2024 EEG 24 HOUR AMBULATORY Jenny Russoters IT DIRECTOR - [employer] Work Phone: Start: 02-27-2024 Electroencephalogram w/rec awake&asleep Jenny Russoters IT DIRECTOR - SUPERVISOR [employer] Work Phone: Start: 02-27-2024 End: 02-27-2024 C-reactive protein Barak Colon MD Work Phone: Start: 02-27-2024 End: 02-27-2024 Calcium ionized Jenny Gunter AP RN - SUPERVISOR [employer] Work Phone: Start: 02-27-2024 REFERENCE LAB SAMPLE Jenny Gunter A PRN - SUPERVISOR [employer] Work Phone: Start: 02-27-2024 Urnls dip stick/tablet reagent auto microscopy Jenny Gunter IT DIRECTOR - SUPERVISOR [employer] Work Phone: Start: 02-27-2024 End: 02-27-2024 Rhythm ecg 1-3 leads w/interpretation & report Unknown Provider Result Start: 05-23-2022 Cystoscopic removal of ureteric stent Shirley Murrell Start: 05-08-2022 Cystoscopic laser lithotripsy of ureteric calculus Shirley Lulala Plan of Treatment Date Care Activity Detail Author Start: 06-12-2025 Adult BMI Screening Adult BMI Screening [facility] Start: 06-12-2025 Tobacco Screening Tobacco Screening [facility] Start: 05-17-2025 Adult BMI Screening Adult BMI Screening [facility] Start: 05-17-2025 Tobacco Screening Tobacco Screening [facility] Start: 04-19-2025 Adult BMI Screening Adult BMI Screening [facility] Start: 04-19-2025 Tobacco Screening Tobacco Screening [facility] Start: 04-11-2025 Adult BMI Screening Adult BMI Screening [facility] Start: 04-11-2025 Tobacco Screening Tobacco Screening [facility] Start: 04-08-2025 Adult BMI Screening Adult BMI Screening [facility] Start: 03-26-2025 Adult BMI Screening Adult BMI Screening [facility] Start: 03-26-2025 Depression Screening Depression Screening [facility] Start: 11-29-2024 Influenza vaccination Flu vaccine (Season Ended) [facility] Start: 09-10-2024 End: 09-10-2024 Patient encounter procedure 09/10/2024 9:00 AM EDT Office Visit [facility] [place] [address] Armando Meek, PA-C [address] [place] [address] [facility] [place] Start: 08-29-2024 End: 08-29-2024 Patient encounter procedure [facility] Start: 06-19-2024 End: 06-19-2024 Patient encounter procedure 06/19/2024 9:30 AM EST Office Visit [facility] [address] [facility] [phone] Armando Meek PA-C [address] [place] [phone] [facility] Start: 06-12-2024 End: 06-12-2024 Patient encounter procedure 06/12/2024 11:00 AM EST Office Visit [facility] [place] [phone] Armando Meek PA-C [address] [place] [phone] [facility] [place] Start: 05-17-2024 End: 05-17-2024 Patient encounter procedure 05/17/2024 9:00 AM EST Office Visit [facility] [address] [facility] [address] [place] [phone] Lisa Ceballos MD [address] [place] [address] [facility] Start: 04-19-2024 End: 04-19-2024 Patient encounter procedure 04/19/2024 9:00 AM EST Office Visit [facility] [address] [facility] [place] [phone] Armando Meek PA-C [address] [place] [phone] [facility] Start: 04-12-2024 End: 04-12-2024 Patient encounter procedure 04/12/2024 3:30 PM EST Office Visit Debbi Young [place] [facility] - Medical Oncology [address] [place] [address] Ciera Torres MD [address] [place] [address] Debbi Sepulveda [facility] - Medical Oncology Start: 04-09-2024 End: 04-09-2024 Patient encounter procedure [facility] Cardi[facility] Start: 04-08-2024 End: 04-08-2025 Echo complete W/O contrast Echo complete W/O contrast Echocardiography Routine Recurrent syncope Expected: 04/08/2024, Expires: 04/08/2025 [place] Work Phone: Comment on above: Expected: 04/08/2024, Expires: Start: 04-08-2024 End: 04-08-2025 Holter monitor study Holter monitor 24-48 hour Cardiac Services Routine Recurrent syncope Expected: 04/08/2024, Expires: 04/08/2025 [facility] [employer] Comment on above: Expected: 04/08/2024, Expires: Start: 04-08-2024 End: 04-08-2024 Patient encounter procedure 04/08/2024 10:30 AM EST Office Visit [facility] [address] [phone] Lisa Ceballos MD [address] [place] [address] [facility] Start: 04-03-2024 End: 04-03-2024 Patient encounter procedure 04/03/2024 1:00 PM EST Appointment [facility] - Neurophysiology [address] [place] [address] [facility] Start: 04-01-2024 End: 03-02-2025 Vitamin B12 & Folate Vitamin B12 & Folate Lab Routine Pancytopenia (HCC) Expected: 04/01/2024 (Approximate), Expires: 03/02/2025 [facility] [employer] [facility] Comment on above: Expected: 04/01/2024 (Approximate), Expi res: 03/02/2025 Start: 03-26-2024 End: 03-26-2024 Patient encounter procedure 03/26/2024 9:00 AM EST Office Visit [facility] [address] [place] [address] Armando Meek, ADRIANNA [address] [place] [address] [facility] Start: 03-02-2024 End: 03-02-2025 CBC panel - Blood by Automated count CBC Lab Routine Pancytopenia (HCC) Expected: 03/02/2024 (Approximate), Expires: 03/02/2025 [facility] Comment on above: Expected: 03/02/2024 (Approximate), Expi res: 03/02/2025 Start: 12-31-2023 COVID-19 Vaccine ( season) COVID-19 Vaccine ( season) [facility] [facility] Start: 12-31-2023 COVID-19 Vaccine ( season) COVID-19 Vaccine ( season) [facility] Start: 12-31-2023 Influenza vaccination Influenza Vaccine [facility] Start: 11-30-2023 Influenza vaccination Flu vaccine (#1) [facility] Start: 06-26-2023 End: 06-26-2023 Patient encounter procedure 06/26/2023 2:30 PM EST Appointment [facility] [address] [place] [address] Manjit Waller [facility] Start: 06-23-2023 End: 06-23-2023 Patient encounter procedure 06/23/2023 1:45 PM EST Appointment [facility] [address] [place] [address] Justyn GoodwinryCAREN [facility] Start: 06-19-2023 End: 06-19-2023 Patient encounter procedure 06/19/2023 3:15 PM EST Appointment [facility] [address] [place] [address] Manjit Waller [facility] Start: 06-14-2023 End: 06-14-2023 Patient encounter procedure 06/14/2023 3:30 PM EST Appointment [facility] [address] [place] [address] Manjit Waller [facility] Start: 06-12-2023 End: 06-12-2023 Patient encounter procedure 06/12/2023 3:15 PM EST Appointment [facility] [address] [place] [address] Manjit Waller [facility] Start: 11-29-2022 Influenza vaccination Flu vaccine (#1) [facility] Start: 08-18-2011 DTaP,Tdap and Td Vaccines (1 - Tdap) DTaP,Tdap and Td Vaccines (1 - Tdap) [facility] Start: 08-18-2011 Pneumococcal 0-49 years Vaccine (1 of 2 - PCV) Pneumococcal 0-49 years Vaccine (1 of 2 - PCV) [facility] Start: 2010 Adult BMI Follow Up Plan Adult BMI Follow Up Plan [facility] Start: 2010 Adult BMI Screening Adult BMI Screening [facility] Start: 2010 Hepatitis C screening Hepatitis C screen [facility] Start: 08-18-2007 HIV screening HIV screen [facility] Start: 2005 Varicella vaccine (1 of 2 - 13+ 2-dose series) Varicella vaccine (1 of 2 - 13+ 2-dose series) [facility] Start: 2004 Depression Screen Depression Screen [facility] Start: 2004 Depression Screening Depression Screening [facility] Start: 2004 Tobacco Screening Tobacco Screening [facility] Start: 08-18-2003 DTaP,Tdap and Td Vaccines (6 - Tdap) DTaP,Tdap and Td Vaccines (6 - Tdap) [facility] [employer] Start: 08-18-2003 DTaP/Tdap/Td vaccine (6 - Tdap) DTaP/Tdap/Td vaccine (6 - Tdap) [facility] Start: 1998 Pneumococcal 0-64 years Vaccine (1 of 2 - PCV) Pneumococcal 0-64 years Vaccine (1 of 2 - PCV) [facility] Start: 1993 Varicella vaccine (1 of 2 - 2-dose childhood series) Varicella vaccine (1 of 2 - 2-dose childhood series) [facility] Start: 02-16-1993 COVID-19 Vaccine (#1) COVID-19 Vaccine (#1) [facility] End: 03-03-2024 CBC W Auto Differential panel - Blood CBC with Auto Differential Lab Routine Daily for 3 Days starting 03/01/2024 until 03/03/2024, 2 completed [facility] Comment on above: Daily for 3 Days starting 03/01/2024 unt il 03/03/2024, 2 completed End: 03-01-2024 Chromosome analysis, bone marrow [facility] Comment on above: Once for 1 Occurrences starting 03/01/20 24 until 03/01/2024 Diagnostic Qual BCR- ABL1 Assay w Reflex to p190 or p210 Quant Assaysantitative Assays Diagnostic Qual BCR-ABL1 Assay w Reflex to p190 or p210 Quant Assaysantitative Assays Lab Routine 02/29/2024 5:30 PM EDT [facility] End: 03-26-2025 EEG EEG Neurology Routine Seizure ([facility]-HCC) Recurrent syncope 1 Occurrences starting 03/26/2024 until 03/26/2025 [place] Work Phone: Comment on above: 1 Occurrences starting 03/26/2024 until 03/26/2025 End: 02-29-2024 Flow Cytometry Leukemia/Lymphoma, Bone Marrow Flow Cytometry Leukemia/Lymphoma, Bone Marrow Lab Routine One Time for 1 Occurrences starting 02/29/2024 until 02/29/2024 [facility] Comment on above: One Time for 1 Occurrences starting 01/31 until 02/29/2024 End: 03-01-2024 Flow Cytometry Leukemia/Lymphoma, Bone Marrow [email or web address] Comment on above: Once for 1 Occurrences starting 03/01/20 until 03/01/2024 End: 03-02-2024 Leukemia / lymphoma phenotype [email or web address] Work Phone: Comment on above: One Time for 1 Occurrences starting 06/2023 until 03/02/2024 End: 03-01-2024 Myeloid Malignancies Mutation Panel [email or web address] Comment on above: One Time for 1 Occurrences starting 05/2023 until 03/01/2024 Oxygen therapy [[facility] Data Set] Initiate Oxygen Therapy Protocol Respiratory Care Routine As Needed until discontinued starting 02/27/2024 [email or web address] Work Phone: Comment on above: As Needed until discontinued starting Renal function 2000 panel - Serum or Plasma [facility] Immunizations Immunization Date Immunization Notes Care Provider Khushbu thao 12-26-1997 DTaP, unspecified formulation Shirley Lue [facility] 12-26-1997 measles, mumps and rubella virus vaccine Shirley Lue [facility] 01-10-1994 DTaP, unspecified formulation Shirley Lue [facility] 01-10-1994 hepatitis B vaccine, pediatric or pediatric/adolescent dosage Shirley Lue [facility] 01-10-1994 Hib, unspecified formulation Shirley Lue [facility] 01-10-1994 measles, mumps and rubella virus vaccine Shirley Lue [facility] 03-12-1993 Hib, unspecified formulation Shirley Lue [facility] 01-01-1993 hepatitis B vaccine, pediatric or pediatric/adolescent dosage Shirley Lue [facility] 01-01-1993 Hib, unspecified formulation Shirley Lue [facility] 1992 hepatitis B vaccine, pediatric or pediatric/adolescent dosage Shirley Lue [facility] 1992 Hib, unspecified formulation Shirley Lue [facility] Payers Date Payer Category Payer Medicaid HMO [employer] [id number] 2024 Medicaid [id number] 1992 Unknown [id number] [id number] 1992 Unknown [id number] 2.16.840.1.595644.3.579.2.593 1992 Unknown [id number] 2.16.840.1.846590.3.579.2.593 1992 Unknown [id number] 2.16.840.1.977651.3.579.2.593 1992 Unknown [id number] 2.16.840.1.919113.3.579.2.593 1992 Unknown [id number] 2.16.840.1.755371.3.579.2.593 1992 Unknown [id number] 2.16.840.1.879201.3.579.2.128 1992 Unknown [id number] 2.16.840.1.483663.3.579.2.128 1992 Unknown [id number] 2.16.840.1.269234.3.579.2.128 1992 Unknown [id number] 2.16840.1.962224.3.579.2.1285 1992 Unknown [id number] 2.840.1.878542.3.579.2.1285 1992 Unknown [id number] 2.840.1.994101.3.579.2.1285 1992 Unknown [id number] 2.840.1.894506.3.579.2.1285 1992 Unknown [id number] 2.840.1.207926.3.579.2.1285 1992 Unknown [id number] 2.840.1.513936.3.579.2.1285 1992 Unknown [id number] 2.840.1.777439.3.579.2.1285 1992 Unknown [id number] 2.16840.1.653632.3.579.2.128 1992 Unknown [id number] 2.16840.1.227755.3.579.2.727 1992 Unknown [id number] 2.16.840.1.900908.3.579.2.173 1992 Unknown [id number] 2.16840.1.506943.3.579.2.173 1959 Self-pay [id number] 1959 Unknown [id number] Social History Date Type Detail Facility Tobacco smoking status [facility] Start: 02-26-2024 End: 02-27-2024 Sex Assigned At Male [facility] Start: 07-13-2022 End: 07-21-2022 Tobacco smoking status Light tobacco smoker (finding) [facility] Tobacco smoking status Never [facility] consumption [facility] [employer] Start: 1990 Sex Assigned At Not on file B [facility] Start: 02-26-2024 End: 11-12-2024 Tobacco smoking status NHIS Smokes tobacco daily [email or web address] Start: 01-30-2024 History of tobacco use Cigarette Smo ker [email or web address] Start: 02-26-2024 End: 03-26-2024 Tobacco use and exposure Former smokeless tobacco user [email or web address] Start: 03-01-2024 End: 06-12-2024 Alcoholic beverage intake Ex-drinker (finding) [email or web address] Start: 02-26-2024 End: 02-27-2024 History of Social function [facility] Has the [employer], [employer], oil, or water company threatened to shut off services in your home in past 12Mo No [employer] (I/We) worried whemelita er (my/our) food would run out before (I/we) got money to buy more. Never true [facility] [employer] Start: 03-26-2024 [facility]smoker [facility] Start: 01-30-2024 History of tobacco use Current smoke r [employer] [facility] Start: 12-04-2014 End: 02-16-2023 Sex Male (finding) [facility] Start: 1990 Sex Assigned At Male Re[facility] Functional Status Date Assessment Result Facility 07-21-2022 Functional Status N/A [facility] 07-13-2022 Functional Status N/A [facility] 05-12-2022 Functional Status N/A [facility] Clinical Notes 07-13-2022 to 09-30-2024 Caitlyn Nelson RN - 09/30/2024 2:30 PM EDTTelephone Encounter - Amber Marcus RN - 07/15/2024 8:15 AM EDTTelephone Encounter - Amber Marcus RN - 07/15/2024 8:15 AM EDTPatient Instructions Note Date & Type Note Facility 09-30-2024 History of Present illness Narrative Instructed on objectives and procedure of a tilt study documented in this encounter [facility] 09-04-2024 Note General Surgery Offi ce/Clinic Note [...] unspecified formulation 01/10/1994 (more content not included)... [facility] Comment on above: Result Comment: Elec tronically Signed By: BREE WILEY, Maureen Jalloh\Date and Time Signed: 09/04/24 15:08 EDT 07-15-2024 Miscellaneous Notes Patient requesting Propranolol LA script be sent to pharmacy. Medication reviewed by RN and pended to Jassi. documented in this encounter [facility] 07-15-2024 Telephone encounter Note Patient requesting Propranolol LA script be sent to pharmacy. Medication reviewed by RN and pended to Jassi. [facility] 06-13-2024 Miscellaneous Notes PA for Ajovy pending on CMM with genao # [id number] Approved with [facility] case # [id number] valid till 09/08/24 documented in this encounter [facility] 06-13-2024 Telephone encounter Note PA for Ajovy pending on CMM with genao # [id number] [facility] 06-13-2024 Telephone encounter Note Approved with [employer] case # [id number] valid till 09/08/24 [facility] 06-13-2024 Miscellaneous Notes 1. IS THIS DUE [...] SCHEDULE APPOINTMENT? -Patient documented in this encounter [facility] 06-13-2024 Telephone encounter Note 1. IS THIS [...] 8. WHO CALLED TO SCHEDULE APPOINTMENT? -Patient [facility] 06-12-2024 History of Present illness Narrative [facility] Neu[facility] Office Note 06/11/2024 8:54 PM Patient info: Ethan Donald is a 33 y.o. male Account No.: [id number] Acct: : 1990 PCP: LATRICIA GARCIA MD [...] in at a Neurology office in [facility]), he suddenly lost consciousness, so EMS arrived and took him to [facility] for further evaluation. [facility] from 02/26/24-03/02/24. [facility] inpatient Neurology service was consulted. 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 He looked up at them and when he did he felt himself start to have a seizure. He was able to stop the seizure by looking away. He has never had a seizure due to flashing lights before. He also would like the results from his EEG. He can be reached at [phone] Addressed in [employer] message. documented in this encounter [facility] 05-30-2024 Telephone encounter Note Patient called and stated yesterday he was sitting with his mother outside when a store product demonstrator pulled up and it had rapidly flashing yellow lights. He looked up at them and when he did he felt himself start to have a seizure. He was able to stop the seizure by looking away. He has never had a seizure due to flashing lights before. He also would like the results from his EEG. He can be reached at [phone] [facility] 05-30-2024 Telephone encounter Note Addressed in [employer] message. [facility] 05-17-2024 History of Present illness Narrative Ethan Thierry Donald Date of visit: 05/17/2024 Date of : 1990 Age: 33 y.o. Patient Active Problem List Diagnosis New onset seizure (CMS-HCC) Pancytopenia (CMS-HCC) Kidney stones Multiple personality disorder (CMS-HCC) Ureteral stone Allergies Allergen Reactions Naproxen Nausea And Vomiting Other Reaction(s): Unknown Current Outpatient Medications Medication Sig Dispense Refill rbasxpb-yphbalriyeexd-cvxbptwd (EXCEDRIN MIGRAINE) 250-250-65 mg per tablet Take [...] coronary artery disease in his father with [place] in his 50s, no family history of [...] Needs: No Transportation Needs (02/27/2024) Received from [employer] [facility] - Transportation Lack of Transportation (Medical): No Lack of Transportation (Non-Medical): No Physical Activity: Not on file Stress: Not on file Social Connections: Not on file Interpersonal Safety: Not on file Housing Instability: Low Risk (02/27/2024) Received from [employer] [facility] Housing Stability Vital Sign Unable to [...] Orders Placed or Reconciled This Encounter Medications snptrod-pcmakjybcazwe-bkfrabxl (EXCEDRIN MIGRAINE) 250-250-65 mg per tablet Sig: [...] GARCIA MD Referring Physician: Latricia Garcia MD [address] [place] [address] documented in this encounter [facility] 05-16-2024 Miscellaneous Notes Called patient to remind them to bring their most current copy of their medication list with them to their appt. Patient verbalizes understanding. documented in this encounter [facility] 05-16-2024 Telephone encounter Note Called patient to remind them to bring their most current copy of their medication list with them to their appt. Patient verbalizes understanding. [facility] 04-19-2024 History of Present illness Narrative [facility] Neurology Office Note 04/18/2024 12:37 PM Patient info: Ethan Donald is a 33 y.o. male Account No.: [id number] Acct: : 1990 PCP: LATRICIA GARCIA MD [...] in at a Neurology office in [facility]), he suddenly lost consciousness, so EMS arrived and took him to [facility] for further evaluation. [facility] from 02/26/24-03/02/24. [facility] inpatient Neurology service was consulted. 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 [facility] 04/12/24 Ethan Donald is a 33 y.o. year old male seen today in the oncology clinic. No chief complaint on file. History of Present Illness: Mr. Donald is a 33 y.o. male who was intially admitted to [facility] on 02/27/2024 for multiple personality disorder, [...] marrow biopsy during recent hospital stay at [facility]. He is referred to Hematology for [...] Needs: No Transportation Needs (02/27/2024) Received from [employer] [facility] - Transportation Lack of Transportation (Medical): No Lack of Transportation (Non-Medical): No Housing Instability: Low Risk (02/27/2024) Received from [employer] [facility] Housing Stability Vital Sign Unable to [...] from the original result were not included. [place] [facility] EEG REPORT EEG Service Date: 04/03/24 Date of Report: 04/03/24 History: Ethan Donald is a 33 y.o. male who is undergoing EEG to evaluate for seizure-like events. Centrally active medications: Hydrocodone, prednisone, Nurtec, Topamax. Procedure: This EEG was acquired with electrodes placed according to the [id number] electrode placement system. The EEG was acquired [...] of intermittent seizures. Tara Bell M.D., Ph.D. [employer] [place] [facility] Background Recent Labs: Recent Results (from [...] AV Velocity Ratio 0.70 Left Ventricle Mass 152.635463623434682 g Interventricular Septum Diastolic Thickness by 2D [...] this note were generated using voice recognition [employer] dictation software. Although every effort was made to ensure the accuracy of this automated washery engineer, some errors in washery engineer may have occurred. 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 - Transportation Lack of Transportation (Medical): No Lack of Transportation (Non-Medical): No Physical Activity: Not on file Stress: Not on file Social Connections: Not on file Interpersonal Safety: Not on file Housing Instability: Low Risk (02/27/2024) Received from [facility] Housing Stability Vital Sign Unable to [...] Recurrent syncope - [facility] - [place], [place] - Echo complete W/O contrast; Future - Holter monitor 24-48 hour; Future 2. Seizure ([facility]) Episodes described sound like two seizures and [...] Referring Physician: Armando Meek PA-C [address] [place] [address] documented in this encounter [facility] 04-05-2024 Miscellaneous Notes Called patient to remind them to bring their most current copy of their medication list with them to their appt. Patient verbalizes understanding. documented in this encounter [facility] 04-05-2024 Telephone encounter Note Called patient to remind them to bring their most current copy of their medication list with them to their appt. Patient verbalizes understanding. [facility] 04-01-2024 Miscellaneous Notes Images from the original note were not included. Patient called to state the referral to the Hematlynsey Torres MD in [place]. Patient states he has called several times and left message with a call back. When looking up the doctors information she appears to be at [facility]. Patient is looking for a doctor in [place]. Please advise Ethan Contact Information [phone] ( Provider located at both [facility] and [facility] in [place]. Patient has been notified of below message and voiced understanding. Patient left a message for the [place] location and has not yet heard a response. Underwater Hunter informed patient if there is still no response by end of week to give the clinic a call back. documented in this encounter [facility] 04-01-2024 Telephone encounter Note Images from the original note were not included. Patient called to state the referral to the Praveen Torres MD in [place]. Patient states he has called several times and left message with a call back. When looking up the doctors information she appears to be at [facility]. Patient is looking for a doctor in [place]. Please advise Ethan Contact Information [phone] ( [facility] 04-01-2024 Telephone encounter Note Provider located at both [facility] and [facility] in [place]. [facility] 04-01-2024 Telephone encounter Note Patient has been notified of below message and voiced understanding. Patient left a message for the [place] location and has not yet heard a response. Underwater Hunter informed patient if there is still no response by end of week to give the clinic a call back. [facility] 03-27-2024 Miscellaneous Notes Patient stated that Armando Meek submitted a prior authorization on 03/26/2024 for the [facility]. However, [employer] stated that it did not go through [...] day supply preferred: unknown Pharmacy Name: [facility] If already on preferred pharmacy list - name only If new pharmacy - specify address & phone number Request was made by: PA is needed for Nurtec. Medication listed is incorrect. RN has submitted a PA on [facility]. Genao: [id number] Patient called stating that he has been experiencing a migraine for about a month since his seizure. Patient is requesting another medication other than Nurtec due to pharmacy not prescribing medication due to a PA. Patient states that if he does not get a medication prescribed by this afternoon that he will be going to [facility] for a migraine cocktail. Please Advise. Pharmacy: [id number] - [place], [place] - Best Contact: Patient was informed [...] over the weekend and was taken to [facility]. He was provided with a medication that aborted his migraine. Patient is unsure the name of if but will look at his records and notify clinic. Patient stated he has a slight headache still but it is much better than previously. He would still like to start Prednisone but will need script sent to [facility] in [place] instead. Appeal Nurtec as stated; thank you. Continue with Topiramate. Will resend Prednisone to desired Pharmacy location. - [facility] documented in this encounter [facility] 03-27-2024 Telephone encounter Note Patient stated that [...] day supply preferred: unknown Pharmacy Name: [facility] If already on preferred pharmacy list - name only If new pharmacy - specify address & phone number Request was made by: [facility] 03-27-2024 Telephone encounter Note PA is needed for Nurtec. Medication listed is incorrect. RN has submitted a PA on [facility]. Genao: [id number] [facility] 03-27-2024 Telephone encounter Note Patient called stating that he has been experiencing a migraine for about a month since his seizure. Patient is requesting another medication other than Nurtec due to pharmacy not prescribing medication due to a PA. Patient states that if he does not get a medication prescribed by this afternoon that he will be going to [place] [facility] for a migraine cocktail. Please Advise. Pharmacy: [id number] - [place], [place] - Best Contact: [facility] 03-27-2024 Telephone encounter Note Patient was informed a PA was submitted, however, the clinic is awaiting response from insurance. The patient is wanting to know if there is any other medication he can take in the meantime until a response is received for the Nurtec. [facility] 03-27-2024 Telephone encounter Note Continue with the prescribed Topiramate and I will send in a course of Prednisone in the meantime while the PA for Nurtec ODT is being completed. - [facility] 03-27-2024 Telephone encounter Note Nurtec was denied. [...] over the weekend and was taken to [facility]. He was provided with a medication that aborted his migraine. Patient is unsure the name of if but will look at his records and notify clinic. Patient stated he has a slight headache still but it is much better than previously. He would still like to start Prednisone but will need script sent to [facility] in [place] instead. [facility] 03-27-2024 Telephone encounter Note Appeal Nurtec as stated; thank you. Continue with Topiramate. Will resend Prednisone to desired Pharmacy location. - [facility] 03-26-2024 History of Present illness Narrative [facility] Neurology Office Note 03/25/2024 3:01 PM Patient info: Ethan Donald is a 33 y.o. male Account No.: [id number] Acct: : 1990 PCP: LATRICIA GARCIA MD [...] in at a Neurology office in [facility]), he suddenly lost consciousness, so EMS arrived and took him to [facility] for further evaluation. [facility] from 02/26/24-03/02/24. [facility] inpatient Neurology service was consulted. 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 IS THIS DUE TO AN ACCIDENT? -NO 2. IS THIS WORKER'S COMP? PLEASE VERIFY IF THIS IS WORKERS COMP AND DOCUMENT (We do not accept any new workers comp cases) - NO 3. WHAT INSURANCE? - MEDICAID WILL BE GETTING [facility] 4. HAVE YOU EVER BEEN SEEN BY A NEUROLOGIST BEFORE? IF YES, WHO AND WHEN? IS THIS A SECOND OPINION? - NO 5. ANY CHANCE OF NOW OR BEFORE YOUR APPOINTMENT? N/A - 6. OFFERED JOSE FOR SOONER APPOINTMENT? -YES 7. PATIENT IS SCHEDULED ON/WITH: - ARMANDO MEEK 8. WHO CALLED TO SCHEDULE APPOINTMENT? PATIENT - documented in this encounter [facility] 03-25-2024 Telephone encounter Note Please ask the following questions to the new patient that you are schedulin. IS THIS DUE TO AN ACCIDENT? -NO 2. IS THIS WORKER'S COMP? PLEASE VERIFY IF THIS IS WORKERS COMP AND DOCUMENT (We do not accept any new workers comp cases) - NO 3. WHAT INSURANCE? - MEDICAID WILL BE [facility] 4. HAVE YOU EVER BEEN SEEN BY A NEUROLOGIST BEFORE? IF YES, WHO AND WHEN? IS THIS A SECOND OPINION? - NO 5. ANY CHANCE OF NOW OR BEFORE YOUR APPOINTMENT? N/A - 6. OFFERED JOSE FOR SOONER APPOINTMENT? -YES 7. PATIENT IS SCHEDULED ON/WITH: - ARMANDO MEEK 8. WHO CALLED TO SCHEDULE APPOINTMENT? PATIENT - [facility] 03-02-2024 History of Present illness Narrative Discharge [...] per family. Pt supplied with walker from [facility]. TRANSFER - OUT REPORT: Verbal report given [...] Patient: Ethan Donald 33 y.o. male Unit/Bed: [facility]- Admit Date: 02/27/2024 ASSESSMENT AND PLAN Active [...] fibromyalgia, tobacco use disorder who presented to [facility] on 02/27/2024 for evaluation of loss [...] Mendoza. 0904 Samples collected and given to glue drier operator for further review. 0906 Procedure completed; [...] Multiple personality disorder, Fibromyalgia who presented to [facility] on 02/26 with chief complaint of [...] Service - 02/29/2024 Neurology Progress Note Date:02/29/2024 Room:[address] [place] [address] Patient Name:Ethan Donald Date of :1990 Age:33 y.o. CC: No chief complaint on file. Subjective Ethan Donald is a 33 y.o. male with a history of Multiple Personality Disorder, Fibromyalgia and Marijuana and Tobacco dependence who presented to [facility] after passing out at his psychiatrist office; transferred to [facility] on 02/26/2024 for neurology evaluation. [...] of Arthritis, Fibromyalgia, Multiple personalities (HCC), and Warren-Schlatter's disease. Social History: reports that he has [...] time. Motor: Motor strength is normal. Coordination: Waicbf-Qird-Bmafvg Test and Heel to Solano Test normal. [...] Modified POA * (Principal) New onset seizure ([facility]) 02/26/2024 Yes Pancytopenia ([facility]) 02/28/2024 Yes New onset Seizure: CTH negative [...] Patient: Ethan Donald 33 y.o. male Unit/Bed: [facility]03/003-A Admit Date: 02/27/2024 ASSESSMENT AND PLAN Active [...] Multiple personality disorder, Fibromyalgia who presented to [facility] on 02/26 with chief complaint of loss of consciousness. Directly admitted from [facility]. Reported on 02/22 having seizure while [...] Service - 02/28/2024 Neurology Progress Note Date:02/28/2024 Room:[address] [place] [address] Patient Name:Ethan Donald Date of :1990 Age:33 y.o. CC: No chief complaint on file. Subjective Ethan Donald is a 33 y.o. male with a history of Multiple Personality Disorder, Fibromyalgia and Marijuana and Tobacco dependence who presented to [facility] after passing out at his psychiatrist office; transferred to [facility] on 02/26/2024 for neurology evaluation. [...] of Arthritis, Fibromyalgia, Multiple personalities (HCC), and Warren-Schlatter's disease. Social History: reports that he has [...] time. Motor: Motor strength is normal. Coordination: Utwknt-Jdxe-Izhtvv Test and Heel to Solano Test normal. [...] Health History and Assessment/Progress Note [facility] (P) Advance Care Planning, , , Name: Ethan Donald Age: 33 y.o. Sex: male Language: Georgian Taoism: None New onset seizure (HCC) Date: 02/28/2024 Total Time Calculated: (P) 35 min Spiritual Assessment continued in [facility] 4A Referral/Consult From: (P) [...] referral Patient is enrolled in [facility], please send discharge medication to [facility] Pharmacy. Thank you! Misti Tineo, [facility] - Prescription Assistance ([phone]) 02/27/2024,3:31 PM Assessment: Ethan is a 33 year old male resting in his bed alone, ca.lm. tired and awake. This visit is in response to a Spiritual Consult to discuss ACP document.Please see ACP note for detail [facility] Neurodiagnostic Sales Service Supervisor Worksheet EEG Date: 02/27/2024 Name: Ethan Donald : 1990 Age: 33 y.o. Sex: male CSN: [id number] Room/Location: [address] [place] [address] Ordering Provider: Brian Gunter EEG Number: [id number] [...] Deprived: Yes Seizures Observed: No Mentality: alert Casino Supervisor: Bahman Robledo 02/27/2024 [facility] ED, Dr Reyes. 33 yo new onset seizure, headache and syncopal episode. Wed. he had a seizure in his sleep, bit his tongue. Followed up with PCP and [facility]. At PCP appt today had a pain in head, passed out, came to ED. CT head without contrast nothing acute. No CT with contrast done because wasn't sure if he had contrast at [facility]. No ability to do MRI after 4PM. Questioning temporal arteritis , 60 mg solumedrol given, also given zofran . WBC 4.1, sed rate 17, CRP 81.9. Vials afebrile, 138/84, 92, 18, 97% on room air. documented in this encounter [facility] 03-02-2024 Hospital Discharge instructions Maureen Hampton DO - 03/02/2024 11:54 AM EDT Follow up with your family doctor in the next week. Continue to wear mask for a precaution when around family and friends. Follow up with Neurology, continue seizure precautions. Do not drive motor vehicles until you follow up and see neurology. 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 -met Candlemaker Goals Time Frame for Custodial Goals : 6 weeks Custodial Goal 1: Patient to be independent and compliant with HEP. -met Custodial Goal 2: Patient to have improved R knee AROM 0-120* with no increase in pain for improved mobility. -met (05/31/23 R knee AROM 0-130*) Custodial Goal 3: Patient to have improved R LE strength >/=4/5 grossly all major joints and planes for improved knee stability with gait. Custodial Goal 4: Pt to report ability to walk community distances with no AD and no gait deviations or increase in pain to return to PLOF. 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 [...] pain and improve R knee mobility. -met Candlemaker Goals Time Frame for Candlemaker Goals : 6 weeks Candlemaker Goal 1: Patient to be independent and compliant with HEP. -met Custodial Goal 2: Patient to have improved R knee AROM 0-120* with no increase in pain for improved mobility. -met (05/31/23 R knee AROM 0-130*) Candlemaker Goal 3: Patient to have improved R LE strength >/=4/5 grossly all major joints and planes for improved knee stability with gait. Candlemaker Goal 4: Pt to report ability to walk community distances with no AD and no gait deviations or increase in pain to return to PLOF. -progressing Minutes Tracking: Time In: 1515 Time Out: 1558 Minutes: 43 Timed Code Treatment Minutes: 41 Minutes Manjit Thorpe Date: 06/12/2023 documented in this encounter [facility] 07-21-2022 Hospital Discharge instructions Patient Education [...] include: ?Spinach. ?Rhubarb. ?Beets. ?Potato chips and sudanese fries. ?Nuts. If you regularly take a diuretic medicine, make sure to eat at least 1 2 fruits or vegetables high in potassium each day. These include: ?Avocado. ?Banana. ?Nome, prune, carrot, or tomato juice. ?Baked potato. [...] Casseroles. Pizza. Lasagna. Frozen meals. Potato chips. Moldovan fries. Summary You can reduce your risk [...] 08/12/2011 Document Revised: 08/07/2019 Document Reviewed: 03/28/2017 [employer] Patient Education 2019 [employer]. Follow Up Care 07/20/2022 16:11:07 With:Handy WILEY, DANA Llamas, URO Address: When: Unknown [facility] 07-13-2022 Hospital Discharge instructions Patient Education [...] include: ?Spinach. ?Rhubarb. ?Beets. ?Potato chips and sudanese fries. ?Nuts. If you regularly take a diuretic medicine, make sure to eat at least 1 2 fruits or vegetables high in potassium each day. These include: ?Avocado. ?Banana. ?Nome, prune, carrot, or tomato juice. ?Baked potato. [...] Casseroles. Pizza. Lasagna. Frozen meals. Potato chips. Moldovan fries. Summary You can reduce your risk [...] 08/12/2011 Document Revised: 08/07/2019 Document Reviewed: 03/28/2017 [employer] Patient Education 2020 In[employer]atel. Follow Up Care 05/23/2022 10:22:28 With:Handy WILEY, Shirley Menchaca, URL, URO Address: When: Unknown [facility] Evaluation + Plan note Future Appointments Appointment Date:07/13/2022 09:00:00 AM Scheduled Provider:Shirley Murrell MD Location:[facility] Appointment Type:URO Office Visit [facility] Evaluation note Diagnosis New onset seizure (HCC)- Primary Other convulsions Pancytopenia (HCC) Other pancytopenia Hip pain, unspecified laterality Pancytopenia (HCC) Other pancytopenia [facility] Diagnosis Recurrent syncope- Primary [facility] Diagnosis Migraine without aura and without status migrainosus, not intractable- Primary Seizure-like activity (CMS-HCC) Functional tremor Seizure-like activity (CMS-HCC) [facility] Diagnosis Psychogenic nonepileptic seizure- Primary Seizure-like activity (CMS-HCC) 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 Migraine without aura and without status migrainosus, not intractable Functional tremor [facility] Diagnosis Seizure (CMS-HCC)- Primary Other convulsions Migraine without aura and without status migrainosus, not intractable Status migrainosus Variants of migraine, not elsewhere classified, without mention of intractable migraine without mention of status migrainosus Recurrent syncope Pancytopenia (CMS-HCC) Functional tremor [facility] Diagnosis Status migrainosus- Primary Variants of migraine, not elsewhere classified, without mention of intractable migraine without mention of status migrainosus [facility]* Diagnosis Recurrent syncope- Primary Seizure (CMS-HCC) Other convulsions [facility]* Diagnosis Pancytopenia (CMS-HCC) [facility]* Diagnosis Migraine without aura and without status migrainosus, not intractable [facility]* Diagnosis Syncope, unspecified syncope type [facility]* Diagnosis Onset Date Resolution Status Admit Date Elevated serum creatinine acute November 12, 2024 10:18am Hypokalemia acute November 12 10:18am Seizures acute November 12 10:18am [facility] Work Phone: Hospital course Narrative No data available for this section [facility] No data available for this section [facility] on filedocumented in this encounter [facility] [...] note No data available for this section [facility] (narrative)No reason for referral information [facility] Work Phone: Reason for visit Narrative* Consultation (Routine) - Pending Review Specialty Diagnoses / Procedures Referred By Genoveva bowers Referred To Contact Hematology Diagnoses Pancytopenia ([facility]) Armando Meek, ADRIANNA [address] [place] [address] Phone: tel: fax: Ciera Torres MD [address] [place] [address] Phone: tel: fax: Referral ID Status Reason Start Date Expiration Date Visits Requested Visits Authorized [id number] Pending Review Specialty Services Required 11/2603/26/2025 1 1 [facility] for visit Narrative* Cardiology (Routine) - Open Specialty Diagnoses / Procedures Referred By Contac t Referred To Contact Cardiology Diagnoses Syncope, unspecified syncope type Procedures Tilt table Latricia Garcia MD [address] [place] [address] Phone: tel: fax: Referral ID Status Reason Start Date Expiration Date Visits Re quested Visits Authorized [id number] Open 09/20/2024 09/20/2025 1 1 [facility] Summary Purpose Family History Relationship Condition Age at Onset Recorded Date/T ren mother Malignant neoplasm Unknown father Heart disease Unknown Advance Directives Documents on File Type Date Recorded Patient Data Specialist Expl anation ACP-Advance Directive 02/29/2024 2:09 PM Date Activated Date Inactivated Comments 02/27/2024 12:32 AM Healthcare Agents on File Name Relationship Healthcare Agent Relationshi p Communication Daisy Araujo Girlfriend Primary Decision Maker Hiren Donald Parent Secondary Decision Maker Documents on File Type Date Recorded Patient Data Specialist Expl anation ACP-Advance Directive 03/05/2024 10:18 AM ACP-Advance Directive 02/29/2024 2:09 PM Date Activated Date Inactivated Comments 02/27/2024 12:32 AM 03/02/2024 5:23 PM Healthcare Agents on File Name Relationship Healthcare Agent Relationshi p Communication Daisy Araujo Girlfriend Primary Decision Maker Hiren Donald Parent Secondary Decision Maker Advance Directive Response Recorded Date/ Time Advance Directives No March 08, 2024 5:47pm Chief Complaint and Reason for Visit Chief Complaint Admit Date hypokalemia, KATARZYNA November 12, 2024 10:1 8am Reason for Visit Admit Date Elevated serum creatinine November 12 10:18am Hypokalemia November 12, 2024 10:1 8am Seizures November 12, 2024 10:1 8am Additional Source Comments Patient Care team informatio n (unrecognized section and content) Music Engineer Relationship Specialty Start Date End Date Latricia Garcia MD [address] [place] [address] PCP - General Family Medicine 02/16/23 Music Engineer Relationship Specialty Start Date End Date Latricia Garcia MD [address] [place] [address] PCP - General Family Medicine 02/16/23 Music Engineer Relationship Specialty Start Date End Date Latricia Garcia MD [address] [place] [address] PCP - General Family Medicine 02/16/23 Music Engineer Relationship Specialty Start Date End Date Latricia Garcia MD PCP - General 09/15/17 Music Engineer Relationship Specialty Start Date End Date Latricia Garcia MD PCP - General 09/15/17 Music Engineer Relationship Specialty Start Date End Date Latricia Garcia MD PCP - General 09/15/17 Music Engineer Relationship Specialty Start Date End Date Latricia Garcia MD PCP - General 09/15/17 Music Engineer Relationship Specialty Start Date End Date Latricia Garcia MD PCP - General 09/15/17 Music Engineer Relationship Specialty Start Date End Date Latricia Garcia MD PCP - General 09/15/17 Music Engineer Relationship Specialty Start Date End Date Latricia Garcia MD PCP - General 09/15/17 Music Engineer Relationship Specialty Start Date End Date Latricia Garcia MD PCP - General 09/15/17 Music Engineer Relationship Specialty Start Date End Date Latricia Garcia MD PCP - General 09/15/17 Music Engineer Relationship Specialty Start Date End Date Latricia Garcia MD PCP - General 09/15/17 Music Engineer Relationship Specialty Start Date End Date Latricia Garcia MD PCP - General 09/15/17 Music Engineer Relationship Specialty Start Date End Date Latricia Garcia MD PCP - General 09/15/17 Music Engineer Relationship Specialty Start Date End Date Latricia Garcia MD [address] [place] [address] PCP - General Family Medicine 02/16/23 Team Status: Active Member Role Status Dates Latricia Garcia MD Primary Care Provider Active Team Status: Inactive Member Role Status Dates Latricia Garcia MD Primary Care Provider Active Start: November 12, 2024 End: November 12, 2024 Ashley Durand MD Attending Provider Active Star t: November 12, 2024 End: November 12, 2024 (unrecognized sect ion and content) No Status Records FoundNo Status Records FoundNo Status Records FoundNo Status Records FoundNo Status Records FoundNo Status Records FoundNo Status Records Found INFORMATION SOURCE (unrecogn ized section and content) DATE CREATED AUTHOR 09/13/2022 [facility] DATE CREATED AUTHOR AUTHOR'S ORGANIZ ATION 03/23/2024 [facility] DATE CREATED AUTHOR AUTHOR'S ORGANIZ ATION 05/17/2024 [facility] DATE CREATED AUTHOR AUTHOR'S ORGANIZ ATION 05/20/2024 [facility] DATE CREATED AUTHOR AUTHOR'S ORGANIZ ATION 06/14/2024 [facility] DATE CREATED AUTHOR AUTHOR'S ORGANIZ ATION 09/05/2024 Max Med[facility] DATE CREATED AUTHOR AUTHOR'S ORGANIZ ATION 10/04/2024 [facility] Reason for Visit (unrecogniz ed section and content) Specialty Diagnoses / Procedures Referred By Genoveva bowers Referred To Contact Diagnoses New onset seizure (HCC) new onset seizure [facility] [address] [place] [address] [facility] [address] [place] [address] Referral ID Status Reason Start Date Expiration Date Visits Re quested Visits Authorized [id number] 1 1 Reason Comments Follow-up EST PT [...] bowers Referred To Contact Neurology Diagnoses Seizure ([facility]) Latricia Garcia MD [address] [place] [address] Phone: tel: fax: [facility] [address] [place] [address] Phone: tel: fax: Referral ID Status Reason Start Date Expiration Date Visits Requested Visits Authorized [id number] Pending Review Specialty Services Required 4 03/20/2025 1 1 Reason Onset Date Comments prior authorization 03/27/2024 Reason Onset Date Comments information wrong on referral 04/01/2024 Reason Comments New Patient [facility] EKG MILAN RICHARD, WAS IN ER , ALSO IP [facility] SCHED W/ PT Specialty Diagnoses / Procedures Referred By Genoveva t Referred To Contact Cardiology Diagnoses Recurrent syncope Armando Meek PA-C [address] [place] [address] Phone: tel: fax: [facility] [address] [place] [address] Phone: tel: fax: Referral ID Status Reason Start Date Expiration Date Visits Requested Visits Authorized [id number] Pending Review Specialty Services Required 03/26/2025 1 1 Reason Onset Date Comments [...] Adame RN) 1056 (Given - Provider: Joanna Zalar, RN) 0900 (Due) magnesium sulfate 1000 mg [...] 0756 (Patch Removed - Provider: Joanna Adame RN)0757 (Not Given - Provider: Joanna Adame RN - Reason: Patient/family refused) 075 (Not Given - Provider: Daphne Alonzo RN - Reason: Patient/family refused) sodium chloride flush 0.9 % injection 10 mL 10 mL, IntraVENous, EVERY 12 HOURS SCHEDULED (2 times per day), First dose on Mon02/27/24 at 0900, Until Discontinued 0852 (Given - Provider: Joanna Adame RN)195 (Given - Provider: Sol Landis RN) 0757 (Given - Provider: Joanna Adame RN)2005 (Given - Provider: Rebecca Humphreys, RN) 0759 (Given - Provider: Daphne Alonzo [...] Joanna Adame RN)2006 (Given - Provider: Rebecca Humphreys RN) 0210 [...] than 30ml/min, On hold since [facility] 02/29/2024 at 1438 until manually unheld 1438 [...] Humphreys, RN)1116 (See Alternative - Provider: Daphne Alonzo, MARQUISE) ondansetron (ZOFRAN-ODT) disintegrating tablet 4 mg(Linked Group 2) 4 mg, Oral, EVERY 8 HOURS PRN, Starting on Mon02/27/24 at 0032, Until Discontinued, Nausea, Vomiting 0614 (Given - Provider: Asim Mitchell RN)1753 (Given - Provider: Joanna Adame, RN) 0630 (Given - Provider: Nikki Morris, MARQUISE)1616 (Given - Provider: Joanna Adame RN) 0018 (Not Given - Provider: Rebecca Humphreys, RN - Reason: Patient/family refused)0351 (Given - Provider: Rebecca Humphreys, RN)1116 (Given - Provider: Daphne Alonzo, RN) [...] Starting on Mon02/27/24 at 003, Until Discontinued, Pain Mild (1-3), Fever, For [...] patients with CrCl less than 30 mL/min. Goals (unrecognized section and content) Goals may be documented in a n alternate section FOR RECORDS PERTAINING TO PATIENTS WHO ARE [...] BE BASED ON THE PRIMARY CLINICAL RECORDS. [employer] provides no warranty or guarantee of the accuracy or completeness of information in this document.
[2025-01-22 12:09] LABS: Anion Gap 13.2; Blood Urea Nitrogen 11.0 mg/dL (7.0-18.0); Calcium 9.2 mg/dL (8.5-10.1); Carbon Dioxide 28.8 mmol/L (21.0-32.0); Chloride 102 mmol/L (98-107); Estimated GFR (African America >60 (>=60 mL/min/1.73m^2); Estimated GFR (Non-African Ame >60 (>=60 mL/min/1.73m^2); Glucose 100 mg/dL (74-106); Magnesium 2.2 mg/dL (1.8-2.4); Potassium 4.0 mmol/L (3.5-5.1); Sodium 140 mmol/L (136-145)
== END 2025-01-22 11:42 | disposition home or self-care (01) ==
LOC: LAB 11:43
PROVIDERS: PCP Family Medicine; Visit Provider Family Medicine
DX: R55 Syncope and collapse (principal)
CPT/HCPCS: 36415; 80048; 83735

== ENCOUNTER 2025-02-18 11:47 | Outpatient (OUT) | payer OTHER, SELFPAY ==
--- OUTSIDE RECORDS SUMMARY | 2025-02-18 11:50 | XMS_ITS | Patient Health Record ---
Author Organization [facility] Address [address] [place] [address] Care Team Providers Care Traffic Warehouse Supervisor Name Role Phone Jc Guzman Primary Care Provider Jon Watts [phone] Allergies Allergen (clinical drug ingredient) Drug/Non Drug Allergy documented on EMR Reaction Allergy Type Onset Date Status naproxenstomach issuesDrug AllergyActive Reason For Referral No Information Medications Medication SIG (Take, Route, Frequency, Duration) Notes Start Date End Date Status nabumetone ActivegabapentinActivepantoprazoleActive Social History Tobacco Use: Social History Observation Description Date Details (start date - stop date) Current Smoker NA - NA Smoking History Question Answer Notes Smoking Status Current Smoker Problems Problem Type SNOMED Code ICD Code Onset Dates Problem Status W/U Status Risk Notes Problem 82664114 Chondromalacia, right knee ( M94.261) [id number] dislocation of right patella, initial encounter (S83.004A)[id number] knee pain, unspecified chronicity (M25.561)[id number] testing (Z01.818)ActiveconfirmedProblemEncounter for other orthopedic aftercare (Z47.89) [id number]-Sorncdbav's disease of right lower extremity (M92.521)Activeconfirmed Plan Of Treatment Pending Test Test Name Order Date MRI : Knee W/O Contrast Right - 88640 Crutches OTS 02/16/2023 BMP 02/16/2023 CBC with diff 02/16/2023 [facility] - POST OP PT/OT - 12 VISITS 05/09/19 24 Insurance Providers Payer Name Payer Address Payer Phone Subscriber Number Group Number Insured Name Patient Relationship to Insured Coverage Start Date Coverage End Date Medicaid [employer] [address] [place] [address] [id number] Halina DONALD - patient is the [id number] 2022 Medical (General) History Medical History History ICD Code Mental Illness: Yes Kidney trouble YesDrug Allergies: YesSurgical History Surgery Date(Month/Year) Arthroscopic right knee with chondroplas ty 03/2023 Broken nose 1999 Hospitalization History Reason Date(Month/Year) Kidney stone 05/2022
--- OUTSIDE RECORDS SUMMARY | 2025-02-18 11:51 | XMS_ITS | Patient Health Record ---
Author Organization [facility] in [place] Address [address] [place] [address] Care Team Providers Care Physicist Cryogenics Name Role Phone Humberto Guzman Primary Care Provider Keena Simmons Unavailable [phone] Allergies Allergen (clinical drug ingredient) Drug/Non Drug Allergy documented on EMR Reaction Allergy Type Onset Date Status naproxen Naproxen stomach upset Drug Allergy Active Results Component Value Reference Range Notes CBC AUTO DIFF Reviewed date:03/07/2024 08:08:08 PM Interpretation: Performing Lab: Notes/Report: [facility] , White Blood Count 6.6 4.0-11.0 10 3/uL Red Blood Count3.744.70-6.10 10 6/nFFydxsrlvby14.414.0-18.0 g/dMFkxbeteyby92.2 42.0-54.0 %Mean Corpuscular Raanky97.480.0-94.0 fLMean Corpuscular Hemoglobin 30.525.9-34.0 pgMean Corpuscular HGB Conc33.329.9-35.2 g/dLRed Cell Distribution Width12.411.0-15.0 %Platelet Noxzr890941-069 10 3/uLMean Platelet Volume9.89.5- 13.5 fLNeutrophils Percent Auto69.343.0-75.0 %Lymphocytes Percent Auto19.720.5- 60.0 %Monocytes Percent Auto7.41.7-12.0 %Eosinophils Percent Auto1.80.9-7.0 % Basophils Percent Auto0.60.2-2.0 %Immature Granulocytes Pct Auto1.20.0-0.5 % Neutrophils Absolute Auto4.61.4-6.5 10 3/uLLymphocytes Absolute Auto1.31.2-3.8 10 3/uLMonocytes Absolute Auto0.50.3-0.8 10 3/uLEosinophils Absolute Auto0.10.0- 0.7 10 3/uLBasophils Absolute Auto0.00.0-0.1 10 3/uLImmature Granulocytes Abs Auto0.080.00-0.03 10 3/uLPerforming Lab:see noteML - [facility] LB PROF 14(COMP METB) Reviewed date:03/07/2024 08:08:08 PM Interpretation: Performing Lab: Notes/Report: [facility] ,Eiuwdj607167-988 mmol/LPotassium4.73.5-5.1 mmol/EViijsbkd68203-292 mmol/LCarbon Jzdjdtz59.221.0-32.0 mmol/LAnion Gap13.5Clryrkl7140-002 mg/dLBlood Urea Nitrogen 8.07.0-18.0 mg/dLCreatinine1.150.70-1.30 mg/dLEstimated GFR ( Anu>60 >=60 mL/min/1.73m 2Estimated GFR (Non- Ally>60>=60 mL/min/1.73m 2BUN Creatinine Ratio7.9Szrkurr3.68.5-10.1 mg/dLBilirubin Total0.40.2-1.0 mg/dL Aspartate Amino Kikltninwnt0411-19 U/LAlanine Eukngicshgesxthm9123-66 U/L Alkaline Ajhalvauzas8023-345 U/LTotal Protein6.76.4-8.2 g/dLAlbumin Level3.13.4- 5.0 g/dLGlobulin3.6Albumin Globulin Ratio0.9Performing Lab:see noteML - [facility] LBAMMONIA Reviewed date:01/15/2025 06:06:02 PM Interpretation: Performing Lab: Notes/Report: [facility] ,Ammonia<1011-32 umol/LPerforming Lab:see noteML - [facility] LBCBC AUTO DIFF Reviewed date:01/15/2025 06:06:02 PM Interpretation: Performing Lab: Notes/Report: [facility] ,White Blood Count8.14.0-11.0 10 3/uLRed Blood Count5.444.70-6.10 10 6/uL Bhahdazvtr29.114.0-18.0 g/dNVqtkqehdjf20.642.0-54.0 %Mean Corpuscular Ljvtgj13.2 80.0-94.0 fLMean Corpuscular Egeyxyqjtc62.425.9-34.0 pgMean Corpuscular HGB Conc 34.529.9-35.2 g/dLRed Cell Distribution Width12.511.0-15.0 %Platelet Cbssg465 150-450 10 3/uLMean Platelet Volume9.99.5-13.5 fLNeutrophils Percent Auto74.1 43.0-75.0 %Lymphocytes Percent Auto18.720.5-60.0 %Monocytes Percent Auto5.71.7- 12.0 %Eosinophils Percent Auto0.60.9-7.0 %Basophils Percent Auto0.70.2-2.0 % Immature Granulocytes Pct Auto0.20.0-0.5 %Neutrophils Absolute Auto6.01.4-6.5 10 3/uLLymphocytes Absolute Auto1.51.2-3.8 10 3/uLMonocytes Absolute Auto0.50.3-0.8 10 3/uLEosinophils Absolute Auto0.10.0-0.7 10 3/uLBasophils Absolute Auto0.10.0- 0.1 10 3/uLImmature Granulocytes Abs Auto0.020.00-0.03 10 3/uLPerforming Lab:see noteML - [facility] LBLIPASE Reviewed date:01/15/2025 06:06:02 PM Interpretation: Performing Lab: Notes/Report: [facility] ,Pppdwh52.016.0-77.0 U/LPerforming Lab:see noteML - [facility] LBPROF 14(COMP METB) Reviewed date:01/15/2025 06:06:02 PM Interpretation: Performing Lab: Notes/Report: [facility] ,Ncfjil038531-588 mmol/LPotassium3.83.5-5.1 mmol/TVfugesei39666-458 mmol/LCarbon Qgaeelt81.721.0-32.0 mmol/LAnion Gap14.1Odyezmv3372-245 mg/dLBlood Urea Nitrogen 10.07.0-18.0 mg/dLCreatinine1.430.70-1.30 mg/dLEstimated GFR ( Anu>60 >=60 mL/min/1.73m 2Estimated GFR (Non- Ame57>=60 mL/min/1.73m 2BUN Creatinine Ratio7.0Abxxcsq0.28.5-10.1 mg/dLBilirubin Total0.60.2-1.0 mg/dL Aspartate Amino Ndmnyzrgzcg6466-60 U/LAlanine Mtpbazonekykirbp3687-88 U/L Alkaline Okyglupnojq7830-683 U/LTotal Protein8.36.4-8.2 g/dLAlbumin Level4.53.4- 5.0 g/dLGlobulin3.8Albumin Globulin Ratio1.2Performing Lab:see noteML - [facility] LBCBC AUTO DIFF Reviewed date:02/25/2024 08:53:17 PM Interpretation: Performing Lab: Notes/Report: [facility] ,White Blood Count3.84.0-11.0 10 3/uLRed Blood Count5.004.70-6.10 10 6/uL Illsxircan83.514.0-18.0 g/gZAvsrdhfwok95.942.0-54.0 %Mean Corpuscular Wsgtsy71.8 80.0-94.0 fLMean Corpuscular Lzjusagady11.025.9-34.0 pgMean Corpuscular HGB Conc 35.329.9-35.2 g/dLRed Cell Distribution Width12.011.0-15.0 %Platelet Eaeln491 150-450 10 3/uLMean Platelet Volume9.99.5-13.5 fLPerforming Lab:see noteML - [facility] LBLACTATE or LACTIC ACID Reviewed date:02/25/2024 08:53:17 PM Interpretation: Performing Lab: Notes/Report: [facility] ,Lactate/Lactic Acid0.70.4-2.0 mmol/LPerforming Lab:see noteML - [facility] LBMAGNESIUM Reviewed date:02/25/2024 08:53:17 PM Interpretation: Performing Lab: Notes/Report: [facility] ,Magnesium2.11.8-2.4 mg/dLPerforming Lab:see note - [facility] LB PROF 14(COMP METB) Reviewed date:02/25/2024 08:53:17 PM Interpretation: Performing Lab: Notes/Report: [facility] ,Zkjnsx317398-262 mmol/LPotassium3.53.5-5.1 mmol/VGsnijkle3073-668 mmol/LCarbon Bbvyqwx56.621.0-32.0 mmol/LAnion Gap17.1Kktxcqg32373-025 mg/dLBlood Urea Kupjonto03.07.0-18.0 mg/dLCreatinine1.420.70-1.30 mg/dLEstimated GFR ( Anu>60>=60 mL/min/1.73m 2Estimated GFR (Non- Ame58>=60 mL/min/1.73m 2 BUN Creatinine Ratio9.3Dsozpol0.18.5-10.1 mg/dLBilirubin Total1.30.2-1.0 mg/dL Aspartate Amino Pqnstrujalf6408-73 U/LAlanine Nbtsticfnxkgtrqc0270-46 U/L Alkaline Rsjeusdnlez0939-770 U/LTotal Protein7.66.4-8.2 g/dLAlbumin Level3.73.4- 5.0 g/dLGlobulin3.9Albumin Globulin Ratio0.9Performing Lab:see note - [facility] LBProthrombin Time INR Reviewed date:02/25/2024 08:53:17 PM Interpretation: Performing Lab: Notes/Report: [facility] ,Prothrombin Time11.59.0-11.6 secINR1.09 DESIRED INR: 2.0-3.0 CONDITIONS NOT LISTED BELOW 2.5-3.5 FOR PROSTHETIC HEART VALVE REPLACEMENT 2.5-3.5 RECURRENT THROMBOSIS Performing Lab:see note - [facility] LBManual Differential Reviewed date:02/25/2024 08:53:17 PM Interpretation: Performing Lab: Notes/Report: [facility] ,Segmented Neutrophils % Cpkugt86.043.0-75.0Band Neutrophils %6.00-5 % Lymphocytes Percent Fwaytx37.020.5-60.0 %Monocytes Percent Manual6.01.7-12.0 % Eosinophils Percent Manual0.00.9-7.0 %Basophils Percent Manual0.00.2-2.0 % Segmented Neut Absolute Manual2.881.4-6.5 10 3/uLBand Neutrophils Absolute0.2 0.0-0.3 10 3/uLLymphocytes Absolute Manual0.451.20-3.80 10 3/uLMonocytes Absolute Manual0.220.30-0.80 10 3/uLEosinophils Absolute Manual0.000.00-0.70 10 3/uLBasophils Abs Manual0.000.00-0.10 10 3/uLPerforming Lab:see noteML - [facility] LBTroponin I High Sensitivity Reviewed date:02/25/2024 08:53:17 PM Interpretation: Performing Lab: Notes/Report: [facility] ,Troponin I High Kudkwycvasc65.84.0-76.1 pg/mL CUT-OFF POINTS HAVE BEEN ESTABLISHED BASED ON THE FOURTH UNIVERSAL DEFINITION OF MYOCARDIAL INFARCTION. THE UPPER REFERENCE LIMIT (URL) OF TROPONIN, DEFINED THE 99TH PERCENTILE OF cTnI DISTRIBUTION IN A REFERENCE POPULATION, HAS BEEN CONFIRMED THE DECISION THRESHOLD FOR VT DIAGNOSIS. 99TH PERCENTILE = 76.2 PG/ML NOTE: HIGH-SENSITIVITY TROPONIN ASSAY IS NOT INTENDED TO BE USED IN ISOLATION BUT SHOULD BE INTERPRETED IN CONJUNCTION WITH OTHER DIAGNOSTIC AND CLINICAL INFORMATION. Performing Lab:see noteML - [facility] LBEthanol Reviewed date:02/25/2024 08:53:17 PM Interpretation: Performing Lab: Notes/Report: [facility] ,Ethanol<3NOTE: 80 mg/dl is the legal limit for a blood alcohol levelPerforming Lab:see noteML - [facility] LBECG 12 lead Reviewed date:02/28/2024 06:25:06 PM Interpretation: Performing Lab: Notes/Report: Source Facility: [facility] [place] [address] [place] [address] Electrocardiograph Report Signed Patient: OLEGARIO DONALD MR#: [id number] : 1990 Acct:[id number] Age/Sex: 33 / M ADM Date: 02/25/24 Loc: ER Attending Dr: Ordering Physician: Elva Finney Date of Service: 02/25/24 Procedure(s): ECG 12 lead Accession Number(s): [id number] cc: [facility] Test Date: 2024-02-25 Pat Name: OLEGARIO DONALD Department: Room: - Gender: Male Chief Investigator: : 1990 Requested By: LATRICIA GUZMAN Order Number: [id number] Reading MD: BLAYNE VALENCIA Measurements Intervals [place] Rate: 97 P: 68 SD: 136 QRS: 84 QRSD: 100 T: 41 QT: 350 QTc: 405 Interpretive Statements 1100 Sinus rhythm 1570 with occasional ventricular premature complexes 9140 abnormal rhythm ECG Compared to ECG 10/12/2022 04:28:21 Ventricular premature complex(es) now present Electronically Signed On 02-27-2024 23:00:19 EDT by BLAYNE VALENCIA Dictated By: Blayne Valencia D.O. Signed By: 02/27/24 2300 DD/ 1035 TD/TT: Corporate Compliance Officer:CT head/brain wo con Reviewed date:02/25/2024 08:53:17 PM Interpretation: Performing Lab: Notes/Report: Source Facility: [place] [address] CT Scan Report Signed Patient: OLEGARIO DONALD MR#: [id number] : 1990 Acct:[id number] Age/Sex: 33 / M ADM Date: 02/25/24 Loc: ER Attending Dr: Ordering Physician: Elva Finney Date of Service: 02/25/24 Procedure(s): CT head/brain wo con Accession Number(s): [id number] cc: Latricia Guzman M.D. [place] [address] Patient Name: OLEGARIO DONALD MRN: [id number] date: 1990 Sex: M Assigned Patient Location: ER Current Patient Location: ER Accession/Order Number: [id number] Exam Date: 02/25/2024 11:35 Report Date: 02/25/2024 [...] Signed By: 02/25/24 1208 DD/ 1205 TD/TT: Corporate Compliance Officer:CT sinus wo con Reviewed date:02/25/2024 08:53:17 PM Interpretation: Performing Lab: Notes/Report: Source Facility: [facility]-[address] [place] [address] [place] [address] CT Scan Report Signed Patient: OLEGARIO DONALD MR#: [id number] : 1990 Acct:[id number] Age/Sex: 33 / M ADM Date: 02/25/24 Loc: ER Attending Dr: Ordering Physician: Elva Finney Date of Service: 02/25/24 Procedure(s): CT sinus wo con Accession Number(s): [id number] cc: Latricia Guzman M.D. [place] [address] Patient Name: OLEGARIO DONALD MRN: [id number] date: 1990 Sex: M Assigned Patient Location: ER Current Patient Location: ER Accession/Order Number: [id number] Exam Date: 02/25/2024 11:35 Report Date: 02/25/2024 [...] Signed By: 02/25/24 1208 DD/ 1205 TD/TT: Corporate Compliance Officer:FOLATE Reviewed date:03/04/2024 08:01:19 PM Interpretation: Performing Lab: Notes/Report: [facility] ,Folate5.708.60-58.90 ng/mLPerforming Lab:see noteML - [facility] LB MAGNESIUM Reviewed date:03/07/2024 08:08:08 PM Interpretation: Performing Lab: Notes/Report: [facility] ,Magnesium2.11.8-2.4 mg/dLPerforming Lab:see noteML - [facility] LB Troponin I High Sensitivity Reviewed date:03/07/2024 08:08:08 PM Interpretation: Performing Lab: Notes/Report: [facility] ,Troponin I High Sensitivity6.14.0-76.1 pg/mL CUT-OFF POINTS HAVE BEEN ESTABLISHED BASED ON THE FOURTH UNIVERSAL DEFINITION OF MYOCARDIAL INFARCTION. THE UPPER REFERENCE LIMIT (URL) OF TROPONIN, DEFINED THE 99TH PERCENTILE OF cTnI DISTRIBUTION IN A REFERENCE POPULATION, HAS BEEN CONFIRMED THE DECISION THRESHOLD FOR VT DIAGNOSIS. 99TH PERCENTILE = 76.2 PG/ML NOTE: HIGH-SENSITIVITY TROPONIN ASSAY IS NOT INTENDED TO BE USED IN ISOLATION BUT SHOULD BE INTERPRETED IN CONJUNCTION WITH OTHER DIAGNOSTIC AND CLINICAL INFORMATION. Performing Lab:see noteML - [facility] LBECG 12 lead Reviewed date:03/09/2024 04:04:01 PM Interpretation: Performing Lab: Notes/Report: Source Facility: [facility]-[address] [place] [address] [place] [address] Electrocardiograph Report Signed Patient: OLEGARIO DONALD MR#: [id number] : 1990 Acct:[id number] Age/Sex: 33 / M ADM Date: 03/07/24 Loc: ER Attending Dr: Ordering Physician: Rayna Gordon D.O. Date of Service: 03/07/24 Procedure(s): ECG 12 lead Accession Number(s): [id number] cc: [facility] Test Date: 2024-03-07 Pat Name: OLEGARIO DONALD Department: Room: - Gender: Male Chief Investigator: : 1990 Requested By: LATRICIA GUZMAN Order Number: [id number] Reading MD: LATRICIA GUZMAN Measurements Intervals [place] Rate: 68 P: 46 SD: 142 QRS: 76 QRSD: 90 T: 40 QT: 378 QTc: 396 Interpretive Statements 1100 Sinus rhythm 1102 Sinus arrhythmia 9110 normal ECG Compared to ECG 02/25/2024 10:35:15 Ventricular premature complex(es) no longer present Electronically Signed On 03-08-2024 6:01:28 EST by LATRICIA GUZMAN Dictated By: Latricia Guzman M.D. Signed By: 03/08/24 0601 DD/ 1001 TD/TT: Corporate Compliance Officer:LETTY Reviewed date:03/18/2024 01:04:34 PM Interpretation: Performing Lab: Notes/Report: [facility] ,Iron76.065.0-175.0 ug/dLPerforming Lab:see noteML - [facility] LB PROF 14(COMP METB) Reviewed date:03/18/2024 01:04:34 PM Interpretation: Performing Lab: Notes/Report: [facility] ,Qtsjcg061469-663 mmol/LPotassium4.33.5-5.1 mmol/AMlezqgyl00333-142 mmol/LCarbon Meayisy93.621.0-32.0 mmol/LAnion Gap10.5Pszfnlj2917-278 mg/dLBlood Urea Nitrogen 16.07.0-18.0 mg/dLCreatinine1.350.70-1.30 mg/dLEstimated GFR ( Anu>60 >=60 mL/min/1.73m 2Estimated GFR (Non- Ally>60>=60 mL/min/1.73m 2BUN Creatinine Ratio11.6Ztqqwfw4.38.5-10.1 mg/dLBilirubin Total0.50.2-1.0 mg/dL Aspartate Amino Wcbbmknswrt3268-13 U/LAlanine Fvnshpgghczoyadd6466-35 U/L Alkaline Ymgtmdmuimv1691-128 U/LTotal Protein7.46.4-8.2 g/dLAlbumin Level3.73.4- 5.0 g/dLGlobulin3.7Albumin Globulin Ratio1.0Performing Lab:see noteML - [facility] LBPROF CHEM 8 (BAS METB) Reviewed date:03/21/2024 02:55:56 PM Interpretation: Performing Lab: Notes/Report: [facility] ,Univok654320-362 mmol/LPotassium3.93.5-5.1 mmol/UWvwljcmj00195-178 mmol/LCarbon Yywncud71.621.0-32.0 mmol/LAnion Gap13.8Dbtfekx9872-437 mg/dLBlood Urea Nitrogen 11.07.0-18.0 mg/dLCreatinine1.230.70-1.30 mg/dLEstimated GFR ( Anu>60 >=60 mL/min/1.73m 2Estimated GFR (Non- Ally>60>=60 mL/min/1.73m 2BUN Creatinine Ratio8.6Rghizoj4.58.5-10.1 mg/dLPerforming Lab:see noteML - [facility] LBUS renal bladder Reviewed date:03/23/2024 10:18:41 AM Interpretation: Performing Lab: Notes/Report: Source Facility: [place] [address] [place] [address] Ultrasound Report Signed Patient: OLEGARIO DONALD MR#: [id number] : 1990 Acct:[id number] Age/Sex: 33 / M ADM Date: 03/21/24 Loc: US Attending Dr: Latricia Guzman M.D. Ordering Physician: Latricia Guzman M.D. Date of Service: 03/21/24 Procedure(s): US renal bladder Accession Number(s): [id number] cc: Latricia Guzman M.D. [place] [address] Patient Name: OLEGARIO DONALD MRN: [facility]:[id number] date: 1990 Sex: M Assigned Patient Location: Current Patient Location: Accession/Order Number: [id number] Exam Date: 03/21/2024 07:28 Report Date: 03/22/2024 [...] Signed By: 03/22/24 0600 DD/ 0557 TD/TT: Corporate Compliance Officer:FERRITIN Reviewed date:03/25/2024 02:32:52 PM Interpretation: Performing Lab: Notes/Report: [facility] ,Ztygaakk897.026.0-388.0 ng/mLPerforming Lab:see noteML - [facility] LBIRON Reviewed date:03/25/2024 02:32:52 PM Interpretation: Performing Lab: Notes/Report: [facility] ,Iron88.065.0-175.0 ug/dLPerforming Lab:see noteML - [facility] LB PROF 14(COMP METB) Reviewed date:03/25/2024 02:32:52 PM Interpretation: Performing Lab: Notes/Report: [facility] ,Clwide798507-036 mmol/LPotassium4.33.5-5.1 mmol/ZWcsuikxn93470-256 mmol/LCarbon Xuiuatn57.521.0-32.0 mmol/LAnion Gap13.0Auiqwrh5982-470 mg/dLBlood Urea Nitrogen 12.07.0-18.0 mg/dLCreatinine1.270.70-1.30 mg/dLEstimated GFR ( Anu>60 >=60 mL/min/1.73m 2Estimated GFR (Non- Ally>60>=60 mL/min/1.73m 2BUN Creatinine Ratio9.3Umioblg1.68.5-10.1 mg/dLBilirubin Total0.50.2-1.0 mg/dL Aspartate Amino Jexhiuzfsuc8914-91 U/LAlanine Aatrjszeelzhzqeg2822-08 U/L Alkaline Pisaderbmqn4495-479 U/LTotal Protein7.46.4-8.2 g/dLAlbumin Level3.93.4- 5.0 g/dLGlobulin3.5Albumin Globulin Ratio1.1Performing Lab:see noteML - [facility] LBFERRITIN Reviewed date:04/01/2024 01:47:50 PM Interpretation: Performing Lab: Notes/Report: [facility] ,Llrhwyrn602.026.0-388.0 ng/mLPerforming Lab:see note - [facility] LBECG 12 lead Reviewed date:04/02/2024 08:53:16 PM Interpretation: Performing Lab: Notes/Report: Source Facility: [facility]-[address] [place] [address] [place] [address] Electrocardiograph Report Signed Patient: OLEGARIO DONALD MR#: [id number] : 1990 Acct:[id number] Age/Sex: 33 / M ADM Date: 04/01/24 Loc: ER Attending Dr: Ordering Physician: Alvin Penaloza M.D. Date of Service: 04/01/24 Procedure(s): ECG 12 lead Accession Number(s): [id number] cc: [facility] Test Date: 2024-04-01 Pat Name: OLEGARIO SCHERF Department: Room: - Gender: Male Chief Investigator: : 1990 Requested By: LATRICIA GUZMAN Order Number: [id number] Reading MD: LATRICIA GUZMAN Measurements Intervals [place] Rate: 97 P: 90 SD: 128 QRS: 78 QRSD: 100 T: 16 [...] Signed By: 04/02/24 0639 DD/ 2342 TD/TT: Corporate Compliance Officer:LACTATE or LACTIC ACID Reviewed date:04/02/2024 08:53:16 PM Interpretation: Performing Lab: Notes/Report: [facility] ,Lactate/Lactic Acid1.90.4-2.0 mmol/LPerforming Lab:see noteML - [facility] LBMAGNESIUM Reviewed date:04/02/2024 08:53:16 PM Interpretation: Performing Lab: Notes/Report: [facility] ,Magnesium2.01.8-2.4 mg/dLPerforming Lab:see noteML - [facility] LB PROF CHEM 8 (BAS METB) Reviewed date:04/02/2024 08:53:16 PM Interpretation: Performing Lab: Notes/Report: [facility] ,Ljudli860414-338 mmol/LPotassium4.23.5-5.1 mmol/XYimoqrko06507-796 mmol/LCarbon Jarwkkh53.321.0-32.0 mmol/LAnion Gap14.9Ftiilcl92600-706 mg/dLBlood Urea Ztzocfjn32.07.0-18.0 mg/dLCreatinine1.450.70-1.30 mg/dLEstimated GFR ( Anu>60>=60 mL/min/1.73m 2Estimated GFR (Non- Ame57>=60 mL/min/1.73m 2 BUN Creatinine Ratio11.5Bmixprg9.38.5-10.1 mg/dLPerforming Lab:see noteML - [facility] LBCBC AUTO DIFF Reviewed date:04/08/2024 12:45:31 PM Interpretation: Performing Lab: Notes/Report: [facility] ,White Blood Count8.44.0-11.0 10 3/uLRed Blood Count4.484.70-6.10 10 6/uL Hfrfxratjw14.814.0-18.0 g/aTBhgotjpdtw46.842.0-54.0 %Mean Corpuscular Tqbtch78.1 80.0-94.0 fLMean Corpuscular Gbogiebout56.825.9-34.0 pgMean Corpuscular HGB Conc 33.829.9-35.2 g/dLRed Cell Distribution Width13.511.0-15.0 %Platelet Spslf383 150-450 10 3/uLMean Platelet Volume9.59.5-13.5 fLNeutrophils Percent Auto78.4 43.0-75.0 %Lymphocytes Percent Auto16.420.5-60.0 %Monocytes Percent Auto3.81.7- 12.0 %Eosinophils Percent Auto0.50.9-7.0 %Basophils Percent Auto0.50.2-2.0 % Immature Granulocytes Pct Auto0.40.0-0.5 %Neutrophils Absolute Auto6.61.4-6.5 10 3/uLLymphocytes Absolute Auto1.41.2-3.8 10 3/uLMonocytes Absolute Auto0.30.3-0.8 10 3/uLEosinophils Absolute Auto0.00.0-0.7 10 3/uLBasophils Absolute Auto0.00.0- 0.1 10 3/uLImmature Granulocytes Abs Auto0.030.00-0.03 10 3/uLPerforming Lab:see noteML - [facility] LBIRON Reviewed date:04/08/2024 12:46:08 PM Interpretation: Performing Lab: Notes/Report: [facility] ,Iron84.065.0-175.0 ug/dLPerforming Lab:see noteML - [facility] LB PROF 14(COMP METB) Reviewed date:04/08/2024 12:45:31 PM Interpretation: Performing Lab: Notes/Report: [facility] ,Nykust750361-952 mmol/LPotassium3.93.5-5.1 mmol/WHkyqrhww48717-089 mmol/LCarbon Ehmadik45.621.0-32.0 mmol/LAnion Gap13.3Siplpud99652-855 mg/dLBlood Urea Kezvmqvf50.07.0-18.0 mg/dLCreatinine1.300.70-1.30 mg/dLEstimated GFR ( Anu>60>=60 mL/min/1.73m 2Estimated GFR (Non- Ally>60>=60 mL/min/1.73m 2BUN Creatinine Ratio11.5Xzuitoz1.08.5-10.1 mg/dLBilirubin Total0.40.2-1.0 mg/dL Aspartate Amino Ucsbgbuozfl7661-49 U/LAlanine Kqdwhxhnqopahibe6895-37 U/L Alkaline Kshhmqmrequ5501-166 U/LTotal Protein7.36.4-8.2 g/dLAlbumin Level4.13.4- 5.0 g/dLGlobulin3.2Albumin Globulin Ratio1.3Performing Lab:see noteML - [facility] LBCBC AUTO DIFF Reviewed date:04/17/2024 04:09:53 PM Interpretation: Performing Lab: Notes/Report: [facility] ,White Blood Count7.34.0-11.0 10 3/uLRed Blood Count4.604.70-6.10 10 6/uL Pwnvnsgvvn47.314.0-18.0 g/gTAblxghmvny93.742.0-54.0 %Mean Corpuscular Crsbve08.8 80.0-94.0 fLMean Corpuscular Kesfxsxrla35.125.9-34.0 pgMean Corpuscular HGB Conc 33.529.9-35.2 g/dLRed Cell Distribution Width13.511.0-15.0 %Platelet Sasmq884 150-450 10 3/uLMean Platelet Volume9.59.5-13.5 fLNeutrophils Percent Auto64.9 43.0-75.0 %Lymphocytes Percent Auto26.520.5-60.0 %Monocytes Percent Auto6.01.7- 12.0 %Eosinophils Percent Auto1.60.9-7.0 %Basophils Percent Auto0.70.2-2.0 % Immature Granulocytes Pct Auto0.30.0-0.5 %Neutrophils Absolute Auto4.81.4-6.5 10 3/uLLymphocytes Absolute Auto1.91.2-3.8 10 3/uLMonocytes Absolute Auto0.40.3-0.8 10 3/uLEosinophils Absolute Auto0.10.0-0.7 10 3/uLBasophils Absolute Auto0.10.0- 0.1 10 3/uLImmature Granulocytes Abs Auto0.020.00-0.03 10 3/uLPerforming Lab:see noteML - [facility] LBFERRITIN Reviewed date:04/17/2024 04:09:53 PM Interpretation: Performing Lab: Notes/Report: [facility] ,Uoiyxxuh546.026.0-388.0 ng/mLPerforming Lab:see noteML - [facility] LBFERRITIN Reviewed date:04/25/2024 07:59:21 PM Interpretation: Performing Lab: Notes/Report: [facility] ,Apsjpbgo573.026.0-388.0 ng/mLPerforming Lab:see noteML - [facility] LBIRON Reviewed date:04/25/2024 07:59:21 PM Interpretation: Performing Lab: Notes/Report: [facility] ,Iron70.065.0-175.0 ug/dLPerforming Lab:see noteML - [facility] LBCBC AUTO DIFF Reviewed date:04/29/2024 08:37:25 PM Interpretation: Performing Lab: Notes/Report: [facility] ,White Blood Count6.64.0-11.0 10 3/uLRed Blood Count4.534.70-6.10 10 6/uL Wfzxwkqqzl18.314.0-18.0 g/tDDopnmxftfu37.342.0-54.0 %Mean Corpuscular Bmhrer14.2 80.0-94.0 fLMean Corpuscular Wxrppilzrd60.625.9-34.0 pgMean Corpuscular HGB Conc 34.629.9-35.2 g/dLRed Cell Distribution Width12.911.0-15.0 %Platelet Ynrvr813 150-450 10 3/uLMean Platelet Volume9.99.5-13.5 fLNeutrophils Percent Auto63.0 43.0-75.0 %Lymphocytes Percent Auto26.520.5-60.0 %Monocytes Percent Auto6.61.7- 12.0 %Eosinophils Percent Auto3.00.9-7.0 %Basophils Percent Auto0.60.2-2.0 % Immature Granulocytes Pct Auto0.30.0-0.5 %Neutrophils Absolute Auto4.21.4-6.5 10 3/uLLymphocytes Absolute Auto1.81.2-3.8 10 3/uLMonocytes Absolute Auto0.40.3-0.8 10 3/uLEosinophils Absolute Auto0.20.0-0.7 10 3/uLBasophils Absolute Auto0.00.0- 0.1 10 3/uLImmature Granulocytes Abs Auto0.020.00-0.03 10 3/uLPerforming Lab:see noteML - [facility] LBFERRITIN Reviewed date:04/29/2024 08:37:25 PM Interpretation: Performing Lab: Notes/Report: [facility] ,Szivuxfd952.026.0-388.0 ng/mLPerforming Lab:see note - [facility] LBIRON Reviewed date:04/29/2024 08:37:25 PM Interpretation: Performing Lab: Notes/Report: [facility] ,Iron73.065.0-175.0 ug/dLPerforming Lab:see noteML - [facility] LB GLYCOHEMOGLOBIN A1C Reviewed date:10/15/2024 04:44:02 PM Interpretation: Performing Lab: Notes/Report: [facility] ,Glycohemoglobin A1C5.24.5-6.2 % ADA RECOMMENDED LIMIT 4.0 - 6.0 ADA THERAPEUTIC TARGET < 7.0 ACTION SUGGESTED > 7.0 Estimated Average Xitkexl125Nldqjgcbur Lab:see noteML - [facility] LB MAGNESIUM Reviewed date:10/23/2024 09:30:31 PM Interpretation: Performing Lab: Notes/Report: [facility] ,Magnesium2.11.8-2.4 mg/dLPerforming Lab:see noteML - [facility] LB PROF CHEM 8 (BAS METB) Reviewed date:10/23/2024 09:30:31 PM Interpretation: Performing Lab: Notes/Report: [facility] ,Ipclbe146222-338 mmol/LPotassium3.53.5-5.1 mmol/GYxzvholy61627-987 mmol/LCarbon Ccxspsb17.321.0-32.0 mmol/LAnion Gap11.8Pjcvjeu39643-703 mg/dLBlood Urea Mzuuanfe45.07.0-18.0 mg/dLCreatinine1.260.70-1.30 mg/dLEstimated GFR ( Anu>60>=60 mL/min/1.73m 2Estimated GFR (Non- Ally>60>=60 mL/min/1.73m 2BUN Creatinine Ratio11.1Iybmhtq6.18.5-10.1 mg/dLPerforming Lab:see noteML - [facility] LBMAGNESIUM Reviewed date:10/30/2024 07:22:51 PM Interpretation: Performing Lab: Notes/Report: [facility] ,Magnesium2.21.8-2.4 mg/dLPerforming Lab:see noteML - [facility] LB PROF CHEM 8 (BAS METB) Reviewed date:10/30/2024 07:22:51 PM Interpretation: Performing Lab: Notes/Report: [facility] ,Qbxjtk817984-427 mmol/LPotassium3.33.5-5.1 mmol/MCxehkbky04083-449 mmol/LCarbon Aywrjqc48.921.0-32.0 mmol/LAnion Gap12.1Siwmxfx5218-261 mg/dLBlood Urea Nitrogen 9.07.0-18.0 mg/dLCreatinine1.430.70-1.30 mg/dLEstimated GFR ( Anu>60 >=60 mL/min/1.73m 2Estimated GFR (Non- Ame57>=60 mL/min/1.73m 2BUN Creatinine Ratio6.0Kfwiets1.08.5-10.1 mg/dLPerforming Lab:see noteML - [facility] LBUS renal bladder Reviewed date:11/10/2024 04:19:11 PM Interpretation: Performing Lab: Notes/Report: Source Facility: [facility]-[address] [place] [address] [address] Ultrasound Report Signed Patient: OLEGARIO DONALD MR#: [id number] : 1990 Acct:[id number] Age/Sex: 34 / M ADM Date: 11/08/24 Loc: US Attending Dr: Latricia Guzman M.D. Ordering Physician: Latricia Guzman M.D. Date of Service: 11/08/24 Procedure(s): US renal bladder Accession Number(s): [id number] cc: Latricia Guzman M.D. [place] [address] Patient Name: OLEGARIO DONALD MRN: [id number] date: 1990 Sex: M Assigned Patient Location: US Current Patient Location: [place] Accession/Order Number: [id number] Exam Date: 11/08/2024 10:39 Report Date: 11/08/2024 [...] García M.D. 11/08/2024 10:45 AM Dictation Location: [place] [address] Electronically authenticated by: [id number] Y Date: 11/08/2024 10:45 Dictated By: Liz García M.D. Signed By: 11/08/24 1047 DD/ 1045 TD/TT: Corporate Compliance Officer:MAGNESIUM Reviewed date:11/20/2024 01:03:55 PM Interpretation: Performing Lab: Notes/Report: [facility] ,Magnesium2.01.8-2.4 mg/dLPerforming Lab:see noteML - [facility] LB PROF CHEM 8 (BAS METB) Reviewed date:11/20/2024 01:03:55 PM Interpretation: Performing Lab: Notes/Report: [facility] ,Qbpbvv696672-426 mmol/LPotassium3.43.5-5.1 mmol/VCqtiqhwo80061-235 mmol/LCarbon Khzywam90.421.0-32.0 mmol/LAnion Gap12.8Cxpmdns1381-661 mg/dLBlood Urea Nitrogen 11.07.0-18.0 mg/dLCreatinine1.210.70-1.30 mg/dLEstimated GFR ( Anu>60 >=60 mL/min/1.73m 2Estimated GFR (Non- Ally>60>=60 mL/min/1.73m 2BUN Creatinine Ratio9.0Uyotefo2.38.5-10.1 mg/dLPerforming Lab:see noteML - [facility] LBMAGNESIUM Reviewed date:11/26/2024 02:44:52 PM Interpretation: Performing Lab: Notes/Report: [facility] ,Magnesium2.11.8-2.4 mg/dLPerforming Lab:see noteML - [facility] LB PROF CHEM 8 (BAS METB) Reviewed date:11/26/2024 02:44:52 PM Interpretation: Performing Lab: Notes/Report: [facility] ,Tyuraf486318-981 mmol/LPotassium3.33.5-5.1 mmol/GIgrruczl25296-823 mmol/LCarbon Peewvaf65.221.0-32.0 mmol/LAnion Gap14.3Tdtqryj2298-026 mg/dLBlood Urea Nitrogen 11.07.0-18.0 mg/dLCreatinine1.100.70-1.30 mg/dLEstimated GFR ( Anu>60 >=60 mL/min/1.73m 2Estimated GFR (Non- Ally>60>=60 mL/min/1.73m 2BUN Creatinine Ratio10.0Naglrdq3.38.5-10.1 mg/dLPerforming Lab:see note - [facility] LBMAGNESIUM Reviewed date:12/03/2024 02:53:09 PM Interpretation: Performing Lab: Notes/Report: [facility] ,Magnesium2.11.8-2.4 mg/dLPerforming Lab:see [facility] PROF CHEM 8 (BAS METB) Reviewed date:12/03/2024 02:53:09 PM Interpretation: Performing Lab: Notes/Report: [facility] ,Jamhqw209143-242 mmol/LPotassium3.63.5-5.1 mmol/MXhrydbyu06791-867 mmol/LCarbon Vzqvupi29.621.0-32.0 mmol/LAnion Gap10.4Dppceiw8685-730 mg/dLBlood Urea Nitrogen 13.07.0-18.0 mg/dLCreatinine1.270.70-1.30 mg/dLEstimated GFR ( Anu>60 >=60 mL/min/1.73m 2Estimated GFR (Non- Ally>60>=60 mL/min/1.73m 2BUN Creatinine Ratio10.0Edjyozh6.68.5-10.1 mg/dLPerforming Lab:see note - [facility] LBMAGNESIUM Reviewed date:12/18/2024 01:02:00 PM Interpretation: Performing Lab: Notes/Report: [facility] ,Magnesium1.91.8-2.4 mg/dLPerforming Lab:see note - [facility] LB MAGNESIUM Reviewed date:12/24/2024 08:25:59 PM Interpretation: Performing Lab: Notes/Report: [facility] ,Magnesium2.11.8-2.4 mg/dLPerforming Lab:see note - [facility] LB PROF CHEM 8 (BAS METB) Reviewed date:12/24/2024 08:25:59 PM Interpretation: Performing Lab: Notes/Report: [facility] ,Leuvzq782623-393 mmol/LPotassium4.13.5-5.1 mmol/ELxkpxlut30588-266 mmol/LCarbon Gexrnvy61.421.0-32.0 mmol/LAnion Gap11.8Wosuejo1102-258 mg/dLBlood Urea Nitrogen 11.07.0-18.0 mg/dLCreatinine1.310.70-1.30 mg/dLEstimated GFR ( Anu>60 >=60 mL/min/1.73m 2Estimated GFR (Non- Ally>60>=60 mL/min/1.73m 2BUN Creatinine Ratio8.3Suyxfzt0.88.5-10.1 mg/dLPerforming Lab:see note - [facility] LBPROF CHEM 8 (BAS METB) Reviewed date:01/22/2025 12:56:49 PM Interpretation: Performing Lab: Notes/Report: [facility] ,Idsuhi684116-190 mmol/LPotassium4.03.5-5.1 mmol/MYqedzmse40517-068 mmol/LCarbon Jxjchjn38.821.0-32.0 mmol/LAnion Gap13.4Hkctoku49477-687 mg/dLBlood Urea Beawnglr82.07.0-18.0 mg/dLCreatinine1.250.70-1.30 mg/dLEstimated GFR ( Anu>60>=60 mL/min/1.73m 2Estimated GFR (Non- Ally>60>=60 mL/min/1.73m 2BUN Creatinine Ratio8.4Diimjmw7.28.5-10.1 mg/dLPerforming Lab:see note - [facility] LBMAGNESIUM Reviewed date:01/22/2025 12:56:49 PM Interpretation: Performing Lab: Notes/Report: [facility] ,Magnesium2.21.8-2.4 mg/dLPerforming Lab:see note - [facility] LB PROF CHEM 8 (BAS METB) Reviewed date:12/18/2024 01:02:00 PM Interpretation: Performing Lab: Notes/Report: [facility] ,Jelhde002625-006 mmol/LPotassium4.13.5-5.1 mmol/HWoakpfqw18533-937 mmol/LCarbon Xbkvfbe95.121.0-32.0 mmol/LAnion Gap10.5Ygloivx14052-874 mg/dLBlood Urea Wqdryshn97.07.0-18.0 mg/dLCreatinine1.350.70-1.30 mg/dLEstimated GFR ( Anu>60>=60 mL/min/1.73m 2Estimated GFR (Non- Ally>60>=60 mL/min/1.73m 2BUN Creatinine Ratio8.5Fqggguh4.08.5-10.1 mg/dLPerforming Lab:see note - [facility] LBPROF CHEM 8 (BAS METB) Reviewed date:12/10/2024 08:17:36 PM Interpretation: Performing Lab: Notes/Report: [facility] ,Ulvjwm747494-751 mmol/LPotassium3.83.5-5.1 mmol/MZqpodwub44020-640 mmol/LCarbon Ceeisof58.421.0-32.0 mmol/LAnion Gap11.3Dfblvyt99735-501 mg/dLBlood Urea Wdhujupr85.07.0-18.0 mg/dLCreatinine1.190.70-1.30 mg/dLEstimated GFR ( Anu>60>=60 mL/min/1.73m 2Estimated GFR (Non- Ally>60>=60 mL/min/1.73m 2BUN Creatinine Ratio13.7Lauvlcn9.28.5-10.1 mg/dLPerforming Lab:see note - [facility] LBMAGNESIUM Reviewed date:12/10/2024 08:17:36 PM Interpretation: Performing Lab: Notes/Report: [facility] ,Magnesium2.11.8-2.4 mg/dLPerforming Lab:see note - [facility] LB Occult Blood* Reviewed date:11/07/2024 06:55:29 PM Interpretation: Performing Lab: Notes/Report: [facility] ,Occult BloodNegativePerforming Lab:see noteML - [facility] LBPROF CHEM 8 (BAS METB) Reviewed date:11/06/2024 12:53:15 PM Interpretation: Performing Lab: Notes/Report: [facility] ,Fifkps552965-489 mmol/LPotassium3.23.5-5.1 mmol/QAbehkbjc80309-112 mmol/LCarbon Kuidhvd05.921.0-32.0 mmol/LAnion Gap14.6Drrwbkz4605-057 mg/dLBlood Urea Nitrogen 10.07.0-18.0 mg/dLCreatinine1.130.70-1.30 mg/dLEstimated GFR ( Anu>60 >=60 mL/min/1.73m 2Estimated GFR (Non- Ally>60>=60 mL/min/1.73m 2BUN Creatinine Ratio8.2Cxkhfad4.08.5-10.1 mg/dLPerforming Lab:see noteML - [facility] LBMAGNESIUM Reviewed date:11/06/2024 12:53:15 PM Interpretation: Performing Lab: Notes/Report: [facility] ,Magnesium2.11.8-2.4 mg/dLPerforming Lab:see note - [facility] LBXR elbow APOORVA min 3v Reviewed date:11/04/2024 08:26:28 PM Interpretation: Performing Lab: Notes/Report: Source Facility: [facility]-[address] [place] [address] [place] [address] XRay Report Signed Patient: OLEGARIO DONALD MR#: [id number] : 1990 Acct:[id number] Age/Sex: 34 / M ADM Date: 11/04/24 Loc: RAD Attending Dr: Latricia Guzman M.D. Ordering Physician: Latricia Guzman M.D. Date of Service: 11/04/24 Procedure(s): XR elbow APOORVA min 3v Accession Number(s): [id number] cc: Latricia Guzman M.D. [place] [address] Patient Name: OLEGARIO DONALD MRN: [id number] date: 1990 Sex: M Assigned Patient Location: [facility] Current Patient Location: [facility] Accession/Order Number: [id number] Exam Date: 11/04/2024 16:05 Report Date: 11/04/2024 [...] Cm M.D. 11/04/2024 4:09 PM Dictation Location: [place] [address] Electronically authenticated by: [id number] Y Date: 11/04/2024 16:09 Dictated By: Kirk Cm D.O. Signed By: 11/04/24 1612 DD/ 1609 TD/TT: Corporate Compliance Officer:TSH Reviewed date:10/15/2024 04:44:03 PM Interpretation: Performing Lab: Notes/Report: [facility] ,Thyroid Stimulating Hormone1.0990.358-3.740 uIU/mLPerforming Lab:see noteML - [facility] LBT4 Reviewed date:10/15/2024 04:44:03 PM Interpretation: Performing Lab: Notes/Report: [facility] ,T4 Thyroxine8.804.50-12.10 ug/dLPerforming Lab:see noteML - [facility] LBPSA SCREENING Reviewed date:10/15/2024 04:44:03 PM Interpretation: Performing Lab: Notes/Report: [facility] ,Prostate Specific Antigen Scrn0.88<=4.00 ng/mLPerforming Lab:see noteML - [facility] LBPROF 14(COMP METB) Reviewed date:10/15/2024 04:44:02 PM Interpretation: Performing Lab: Notes/Report: [facility] ,Rwmszb851899-801 mmol/LPotassium3.23.5-5.1 mmol/DCfdymkfm22131-291 mmol/LCarbon Pknrtgh69.221.0-32.0 mmol/LAnion Gap11.7Vybfyot6932-481 mg/dLBlood Urea Nitrogen 8.07.0-18.0 mg/dLCreatinine1.220.70-1.30 mg/dLEstimated GFR ( Anu>60 >=60 mL/min/1.73m 2Estimated GFR (Non- Ally>60>=60 mL/min/1.73m 2BUN Creatinine Ratio6.1Pcxrbfj8.58.5-10.1 mg/dLBilirubin Total0.70.2-1.0 mg/dL Aspartate Amino Pkjwomuwclp9414-72 U/LAlanine Oijrpsrmhjmocglg6378-70 U/L Alkaline Iipojejsiqw7018-572 U/LTotal Protein7.16.4-8.2 g/dLAlbumin Level3.83.4- 5.0 g/dLGlobulin3.3Albumin Globulin Ratio1.2Performing Lab:see noteML - [facility] LBMAGNESIUM Reviewed date:10/15/2024 04:44:02 PM Interpretation: Performing Lab: Notes/Report: [facility] ,Magnesium2.11.8-2.4 mg/dLPerforming Lab:see noteML - [facility] LB LIPID PROFILE Reviewed date:10/15/2024 04:44:02 PM Interpretation: Performing Lab: Notes/Report: [facility] ,Vdvezrjowodqc539<=150 mg/eKLgmhzdbqzhy761<=200 mg/dLHDL Odvlozbzdma0952-19 mg/dL > or =60 mg/dl - LOW CARDIOVASCULAR RISK <40 mg/dl - HIGH CARDIOVASCULAR RISK LDL Cholesterol Oxqtiiqrkg974.8 <100 mg/dl OPTIMAL 100-129 mg/dl NEAR OR ABOVE OPTIMAL 130-159 mg/dl BORDERLINE HIGH 160-189 mg/dl HIGH >190 mg/dl VERY HIGH VLDL HSCAZDVJCQN94.2Chol HDL Ratio4.5 3.3 - 4.4 LOW RISK 4.4 - 7.1 AVERAGE RISK 7.1 - 11.0 MODERATE RISK >11.0 HIGH RISK Performing Lab:see note - [facility] LBINSULIN Reviewed date:10/16/2024 05:38:54 PM Interpretation: Performing Lab: Notes/Report: [facility] ,Insulin7.52.6-24.9 uIU/mL Performed at: [facility] [address] [id number] Summer Child Caregiver: Justino Aragon PhD, Phone: [phone] Performing Lab:see note - [facility] LBFREE T3 Reviewed date:10/15/2024 04:44:02 PM Interpretation: Performing Lab: Notes/Report: [facility] ,Free T32.782.18-3.98 pg/mLPerforming Lab:see note - [facility] LB CBC AUTO DIFF Reviewed date:10/15/2024 04:44:02 PM Interpretation: Performing Lab: Notes/Report: [facility] ,White Blood Count7.24.0-11.0 10 3/uLRed Blood Count5.084.70-6.10 10 6/uL Ynbthxizwn26.814.0-18.0 g/eUHcfgdcrshg84.342.0-54.0 %Mean Corpuscular Unksqo15.2 80.0-94.0 fLMean Corpuscular Mobtwhqwtf16.125.9-34.0 pgMean Corpuscular HGB Conc 34.929.9-35.2 g/dLRed Cell Distribution Width11.911.0-15.0 %Platelet Nqizg832 150-450 10 3/uLMean Platelet Mzggvc85.39.5-13.5 fLNeutrophils Percent Auto67.6 43.0-75.0 %Lymphocytes Percent Auto22.420.5-60.0 %Monocytes Percent Auto6.41.7- 12.0 %Eosinophils Percent Auto2.20.9-7.0 %Basophils Percent Auto1.10.2-2.0 % Immature Granulocytes Pct Auto0.30.0-0.5 %Neutrophils Absolute Auto4.91.4-6.5 10 3/uLLymphocytes Absolute Auto1.61.2-3.8 10 3/uLMonocytes Absolute Auto0.50.3-0.8 10 3/uLEosinophils Absolute Auto0.20.0-0.7 10 3/uLBasophils Absolute Auto0.10.0- 0.1 10 3/uLImmature Granulocytes Abs Auto0.020.00-0.03 10 3/uLPerforming Lab:see noteML - [facility] LBCA echo doppler complete Reviewed date:09/17/2024 08:31:28 PM Interpretation: Performing Lab: Notes/Report: Source Facility: [place] [address] Cardiology Report Signed Patient: OLEGARIO DONALD MR#: [id number] : 1990 Acct:[id number] Age/Sex: 34 / M ADM Date: 09/17/24 Loc: CARD Attending Dr: Latricia Guzman M.D. Ordering Physician: Latricia Guzman M.D. Date of Service: 09/17/24 Procedure(s): CA echo doppler complete Accession Number(s): [id number] cc: Latricia Guzman M.D. Patient Name: OLEGARIO DONALD MR#: [id number] : 1990 Exam Date: 09/17/2024 Ordering Doctor: [...] MAX BARBA Signed By: 09/17/24 1554 DD/ 155 TD/TT: Corporate Compliance Officer:ECG 12 lead Reviewed date:05/06/2024 08:33:42 PM Interpretation: Performing Lab: Notes/Report: Source Facility: [place] [address] Electrocardiograph Report Signed Patient: OLEGARIO DONALD MR#: [id number] : 1990 Acct:[id number] Age/Sex: 33 / M ADM Date: 05/03/24 Loc: ER Attending Dr: Ordering Physician: Kirk Lynch Date of Service: 05/03/24 Procedure(s): ECG 12 lead Accession Number(s): [id number] cc: [facility] Test Date: 2024-05-03 Pat Name: OLEGARIO DONALD Department: Room: - Gender: Male Chief Investigator: : 1990 Requested By: LATRICIA GUZMAN Order Number: [id number] Reading MD: BLAYNE VALENCIA Measurements Intervals [place] Rate: 56 P: 44 SD: 142 QRS: 76 QRSD: 104 T: 41 QT: 416 QTc: 407 Interpretive Statements 1100 Sinus rhythm 1470 with occasional supraventricular premature complexes 2440 Incomplete right bundle branch block 9140 abnormal rhythm ECG Compared to ECG 04/10/2024 00:42:36 Incomplete right bundle-branch block now present Electronically Signed On 05-06-2024 20:18:16 EST by BLAYNE VALENCIA Dictated By: Blayne Valencia D.O. Signed By: 05/06/242017 DD/ 51 TD/TT: Corporate Compliance Officer:Troponin I High Sensitivity Reviewed date:05/05/2024 08:32:06 PM Interpretation: Performing Lab: Notes/Report: [facility] ,Troponin I High Sensitivity6.34.0-76.1 pg/mL CUT-OFF POINTS HAVE BEEN ESTABLISHED BASED ON THE FOURTH UNIVERSAL DEFINITION OF MYOCARDIAL INFARCTION. THE UPPER REFERENCE LIMIT (URL) OF TROPONIN, DEFINED THE 99TH PERCENTILE OF cTnI DISTRIBUTION IN A REFERENCE POPULATION, HAS BEEN CONFIRMED THE DECISION THRESHOLD FOR VT DIAGNOSIS. 99TH PERCENTILE = 76.2 PG/ML NOTE: HIGH-SENSITIVITY TROPONIN ASSAY IS NOT INTENDED TO BE USED IN ISOLATION BUT SHOULD BE INTERPRETED IN CONJUNCTION WITH OTHER DIAGNOSTIC AND CLINICAL INFORMATION. Performing Lab:see note - [facility] LBPROF CHEM 8 (BAS METB) Reviewed date:05/05/2024 08:32:06 PM Interpretation: Performing Lab: Notes/Report: [facility] ,Iyxrar056835-480 mmol/LPotassium3.43.5-5.1 mmol/UXuozrkoj63839-345 mmol/LCarbon Csbrnfv15.821.0-32.0 mmol/LAnion Gap11.4Weseamu4754-243 mg/dLBlood Urea Nyldpvgd42.07.0-18.0 mg/dLCreatinine1.270.70-1.30 mg/dLEstimated GFR ( Anu>60>=60 mL/min/1.73m 2Estimated GFR (Non- Ally>60>=60 mL/min/1.73m 2BUN Creatinine Ratio10.6Tbgazka7.38.5-10.1 mg/dLPerforming Lab:see noteML - [facility] LBCBC AUTO DIFF Reviewed date:05/05/2024 08:32:06 PM Interpretation: Performing Lab: Notes/Report: [facility] ,White Blood Count6.74.0-11.0 10 3/uLRed Blood Count4.354.70-6.10 10 6/uL Ipdosummux64.814.0-18.0 g/lUJjrpospqxp59.742.0-54.0 %Mean Corpuscular Kunesq99.0 80.0-94.0 fLMean Corpuscular Qwsjrrymyx28.725.9-34.0 pgMean Corpuscular HGB Conc 35.729.9-35.2 g/dLRed Cell Distribution Width12.511.0-15.0 %Platelet Srswv831 150-450 10 3/uLMean Platelet Volume9.99.5-13.5 fLNeutrophils Percent Auto59.0 43.0-75.0 %Lymphocytes Percent Auto29.720.5-60.0 %Monocytes Percent Auto9.61.7- 12.0 %Eosinophils Percent Auto1.00.9-7.0 %Basophils Percent Auto0.60.2-2.0 % Immature Granulocytes Pct Auto0.10.0-0.5 %Neutrophils Absolute Auto4.01.4-6.5 10 3/uLLymphocytes Absolute Auto2.01.2-3.8 10 3/uLMonocytes Absolute Auto0.60.3- 0.8 10 3/uLEosinophils Absolute Auto0.10.0-0.7 10 3/uLBasophils Absolute Auto0.0 0.0-0.1 10 3/uLImmature Granulocytes Abs Auto0.010.00-0.03 10 3/uLPerforming Lab:see noteML - [facility] LBPROF 14(COMP METB) Reviewed date:04/29/2024 08:37:25 PM Interpretation: Performing Lab: Notes/Report: [facility] ,Ixyiht719575-204 mmol/LPotassium4.43.5-5.1 mmol/SNczsihnb34904-604 mmol/LCarbon Oxfeqzu03.121.0-32.0 mmol/LAnion Gap11.1Vketihw8552-491 mg/dLBlood Urea Frzpeama65.07.0-18.0 mg/dLCreatinine1.240.70-1.30 mg/dLEstimated GFR ( Anu>60>=60 mL/min/1.73m 2Estimated GFR (Non- Ally>60>=60 mL/min/1.73m 2BUN Creatinine Ratio14.6Oogsqot2.28.5-10.1 mg/dLBilirubin Total0.40.2-1.0 mg/dL Aspartate Amino Vrqvwihwaqn5217-15 U/LAlanine Hpfyvdamolsaiwgo9038-35 U/L Alkaline Cbnrbppnmvu5823-485 U/LTotal Protein7.06.4-8.2 g/dLAlbumin Level3.93.4- 5.0 g/dLGlobulin3.1Albumin Globulin Ratio1.3Performing Lab:see note - [facility] LBPROF 14(COMP METB) Reviewed date:04/25/2024 07:59:21 PM Interpretation: Performing Lab: Notes/Report: [facility] ,Ryalkn117050-507 mmol/LPotassium3.93.5-5.1 mmol/XVbnxcnbq02146-907 mmol/LCarbon Qibagdr17.121.0-32.0 mmol/LAnion Gap13.6Rcmkzkd6223-937 mg/dLBlood Urea Hetkmpkk67.07.0-18.0 mg/dLCreatinine1.260.70-1.30 mg/dLEstimated GFR ( Anu>60>=60 mL/min/1.73m 2Estimated GFR (Non- Ally>60>=60 mL/min/1.73m 2BUN Creatinine Ratio8.5Zgqtweg5.08.5-10.1 mg/dLBilirubin Total0.40.2-1.0 mg/dL Aspartate Amino Rsfrmzaggqd489-08 U/LAlanine Rjxbbttdtwttptlr9796-43 U/LAlkaline Jbdgkydnwou1591-719 U/LTotal Protein6.96.4-8.2 g/dLAlbumin Level3.83.4-5.0 g/dL Globulin3.1Albumin Globulin Ratio1.2Performing Lab:see noteML - [facility] LBCBC AUTO DIFF Reviewed date:04/25/2024 07:59:21 PM Interpretation: Performing Lab: Notes/Report: [facility] ,White Blood Count5.34.0-11.0 10 3/uLRed Blood Count4.574.70-6.10 10 6/uL Qepdhfdqsp58.114.0-18.0 g/xSPralnfeheo02.742.0-54.0 %Mean Corpuscular Dhzgtk01.2 80.0-94.0 fLMean Corpuscular Kaoxfdtids56.925.9-34.0 pgMean Corpuscular HGB Conc 33.829.9-35.2 g/dLRed Cell Distribution Width13.111.0-15.0 %Platelet Hdndq266 150-450 10 3/uLMean Platelet Volume9.69.5-13.5 fLNeutrophils Percent Auto60.2 43.0-75.0 %Lymphocytes Percent Auto28.420.5-60.0 %Monocytes Percent Auto7.21.7- 12.0 %Eosinophils Percent Auto3.20.9-7.0 %Basophils Percent Auto0.80.2-2.0 % Immature Granulocytes Pct Auto0.20.0-0.5 %Neutrophils Absolute Auto3.21.4-6.5 10 3/uLLymphocytes Absolute Auto1.51.2-3.8 10 3/uLMonocytes Absolute Auto0.40.3- 0.8 10 3/uLEosinophils Absolute Auto0.20.0-0.7 10 3/uLBasophils Absolute Auto0.0 0.0-0.1 10 3/uLImmature Granulocytes Abs Auto0.010.00-0.03 10 3/uLPerforming Lab:see noteML - [facility] LBPROF 14(COMP METB) Reviewed date:04/17/2024 04:09:53 PM Interpretation: Performing Lab: Notes/Report: [facility] ,Ncfqbz560741-089 mmol/LPotassium3.83.5-5.1 mmol/PMewedjld39092-171 mmol/LCarbon Iskzrvj00.021.0-32.0 mmol/LAnion Gap13.1Pwbgypa4387-256 mg/dLBlood Urea Flpodnsf44.07.0-18.0 mg/dLCreatinine1.280.70-1.30 mg/dLEstimated GFR ( Anu>60>=60 mL/min/1.73m 2Estimated GFR (Non- Ally>60>=60 mL/min/1.73m 2BUN Creatinine Ratio12.1Qrqaltx3.08.5-10.1 mg/dLBilirubin Total0.60.2-1.0 mg/dL Aspartate Amino Pemtjmapidi3024-44 U/LAlanine Uumqcmapvkdppbia3651-15 U/L Alkaline Ozadyvxpnvl3516-546 U/LTotal Protein7.36.4-8.2 g/dLAlbumin Level4.13.4- 5.0 g/dLGlobulin3.2Albumin Globulin Ratio1.3Performing Lab:see noteML - [facility] LBIRON Reviewed date:04/17/2024 04:09:53 PM Interpretation: Performing Lab: Notes/Report: [facility] ,Iron96.065.0-175.0 ug/dLPerforming Lab:see noteML - [facility] LB PROF 14(COMP METB) Reviewed date:04/14/2024 08:22:13 PM Interpretation: Performing Lab: Notes/Report: [facility] ,[place]876231-045 mmol/LPotassium3.63.5-5.1 mmol/KHqosscvt87077-556 mmol/LCarbon Qsaqqcx23.821.0-32.0 mmol/LAnion Gap12.7Vevmfah67763-962 mg/dLBlood Urea Wmddmbvw32.07.0-18.0 mg/dLCreatinine1.430.70-1.30 mg/dLEstimated GFR ( Anu>60>=60 mL/min/1.73m 2Estimated GFR (Non- Ame58>=60 mL/min/1.73m 2 BUN Creatinine Ratio13.5Asjgyjc4.98.5-10.1 mg/dLBilirubin Total0.60.2-1.0 mg/dL Aspartate Amino Yoddxbwexno734-52 U/LAlanine Hwpifnsgquqmcnfq5765-56 U/LAlkaline Xhwfhcqkoyo6155-015 U/LTotal Protein7.56.4-8.2 g/dLAlbumin Level4.13.4-5.0 g/dL Globulin3.4Albumin Globulin Ratio1.2Performing Lab:see noteML - [facility] LBCBC AUTO DIFF Reviewed date:04/14/2024 08:22:13 PM Interpretation: Performing Lab: Notes/Report: [facility] ,White Blood Count6.24.0-11.0 10 3/uLRed Blood Count4.624.70-6.10 10 6/uL Bpnrwbmaqy25.514.0-18.0 g/yOUhgqtyugww44.442.0-54.0 %Mean Corpuscular Qqcjdi36.8 80.0-94.0 fLMean Corpuscular Mepvqpayhe35.425.9-34.0 pgMean Corpuscular HGB Conc 34.229.9-35.2 g/dLRed Cell Distribution Width13.611.0-15.0 %Platelet Hkwws250 150-450 10 3/uLMean Platelet Volume9.39.5-13.5 fLNeutrophils Percent Auto52.1 43.0-75.0 %Lymphocytes Percent Auto36.620.5-60.0 %Monocytes Percent Auto7.61.7- 12.0 %Eosinophils Percent Auto2.90.9-7.0 %Basophils Percent Auto0.60.2-2.0 % Immature Granulocytes Pct Auto0.20.0-0.5 %Neutrophils Absolute Auto3.21.4-6.5 10 3/uLLymphocytes Absolute Auto2.31.2-3.8 10 3/uLMonocytes Absolute Auto0.50.3- 0.8 10 3/uLEosinophils Absolute Auto0.20.0-0.7 10 3/uLBasophils Absolute Auto0.0 0.0-0.1 10 3/uLImmature Granulocytes Abs Auto0.010.00-0.03 10 3/uLPerforming Lab:see noteML - [facility] LBECG 12 lead Reviewed date:04/11/2024 06:46:41 PM Interpretation: Performing Lab: Notes/Report: Source Facility: [facility]-[address] [place] [address] [place] [address] Electrocardiograph Report Signed Patient: OLEGARIO DONALD MR#: [id number] : 1990 Acct:[id number] Age/Sex: 33 / M ADM Date: 04/10/24 Loc: ER Attending Dr: Ordering Physician: Manuelito Leone M.D. Date of Service: 04/10/24 Procedure(s): ECG 12 lead Accession Number(s): [id number] cc: [facility] Test Date: 2024-04-10 Pat Name: OLEGARIO DONALD Department: Room: - Gender: Male Chief Investigator: : 1990 Requested By: [id number] Order Number: [id number] Reading MD: LATRICIA GUZMAN Measurements Intervals [place] Rate: 71 P: 54 SD: 138 QRS: 86 QRSD: 104 T: 28 QT: 382 QTc: 404 Interpretive Statements 1100 Sinus rhythm 9110 normal ECG Compared to ECG 04/01/2024 23:42:23 No significant changes Electronically Signed On 04-11-2024 8:03:14 EST by LATRICIA GUZMAN Dictated By: Latricia Guzman M.D. Signed By: 04/11/2403 DD/ 004 TD/TT: Corporate Compliance Officer:[employer] Reviewed date:04/10/2024 07:56:41 PM Interpretation: Performing Lab: Notes/Report: [facility] ,Ethanol<3NOTE: 80 mg/dl is the legal limit for a blood alcohol levelPerforming Lab:see noteML - [facility] LBTroponin I High Sensitivity Reviewed date:04/10/2024 07:56:41 PM Interpretation: Performing Lab: Notes/Report: [facility] ,Troponin I High Sensitivity4.14.0-76.1 pg/mL CUT-OFF POINTS HAVE BEEN ESTABLISHED BASED ON THE FOURTH UNIVERSAL DEFINITION OF MYOCARDIAL INFARCTION. THE UPPER REFERENCE LIMIT (URL) OF TROPONIN, DEFINED THE 99TH PERCENTILE OF cTnI DISTRIBUTION IN A REFERENCE POPULATION, HAS BEEN CONFIRMED THE DECISION THRESHOLD FOR VT DIAGNOSIS. 99TH PERCENTILE = 76.2 PG/ML NOTE: HIGH-SENSITIVITY TROPONIN ASSAY IS NOT INTENDED TO BE USED IN ISOLATION BUT SHOULD BE INTERPRETED IN CONJUNCTION WITH OTHER DIAGNOSTIC AND CLINICAL INFORMATION. Performing Lab:see noteML - [facility] LBPROF 14(COMP METB) Reviewed date:04/10/2024 07:56:41 PM Interpretation: Performing Lab: Notes/Report: [facility] ,Cjxhxe586252-054 mmol/LPotassium3.53.5-5.1 mmol/COvtqwvih91711-406 mmol/LCarbon Msmlyzq23.421.0-32.0 mmol/LAnion Gap13.1Qoqikzo31563-332 mg/dLBlood Urea Pnxhjohn57.07.0-18.0 mg/dLCreatinine1.440.70-1.30 mg/dLEstimated GFR ( Anu>60>=60 mL/min/1.73m 2Estimated GFR (Non- Ame57>=60 mL/min/1.73m 2 BUN Creatinine Ratio11.2Kdjkumj4.28.5-10.1 mg/dLBilirubin Total0.40.2-1.0 mg/dL Aspartate Amino Bvnjmozavkq696-58 U/LAlanine Yvixihbsufpxanmh6826-06 U/LAlkaline Jdjvlounoku3605-247 U/LTotal Protein7.46.4-8.2 g/dLAlbumin Level4.13.4-5.0 g/dL Globulin3.3Albumin Globulin Ratio1.2Performing Lab:see note - [facility] LBDRUG SCREEN RAPID (URINE) Reviewed date:04/10/2024 07:56:41 PM Interpretation: Performing Lab: Notes/Report: [facility] ,Cannabinoid Screen UrinePOSITIVENEGATIVEPhencyclidine Screen UrineNEGATIVE NEGATIVECocaine Screen UrineNEGATIVENEGATIVEMethamphetamines Screen Urine NEGATIVENEGATIVEOpiate Screen UrinePOSITIVENEGATIVEAmphetamine Screen Urine NEGATIVENEGATIVEBenzodiazepines Screen UrineNEGATIVENEGATIVETricyclic Antidepressant UrineNEGATIVENEGATIVEMethadone Screen UrineNEGATIVENEGATIVE Barbiturates Screen UrineNEGATIVENEGATIVEOxycodone Screen UrineNEGATIVENEGATIVE Buprenorphine Screen UrineNEGATIVENEGATIVE DRUG CLASS TEST SYSTEM CUT-OFF CONCENTRATIONS ARE FOLLOWS: AMP (Amphetamine): 500 ng/mL BAR (Barbiturates): 200 ng/mL BZO (Benzodiazepines): 150 ng/mL BUP (Buprenorphine): 10 ng/mL EMELY (Cocaine): 150 ng/mL mAMP (Methamphetamine): 500 ng/mL MTD (Methadone): 200 ng/mL OPI (Opiates): 100 ng/mL OXY (Oxycodone): 100 ng/mL PCP (Phencyclidine): 25 ng/mL THC (Cannabinoids): 50 ng/mL TCA (Trycyclic Antidepressants): 300 ng/mL Performing Lab:see noteML - [facility] LBCBC AUTO DIFF Reviewed date:04/10/2024 07:56:41 PM Interpretation: Performing Lab: Notes/Report: [facility] ,White Blood Count8.84.0-11.0 10 3/uLRed Blood Count4.424.70-6.10 10 6/uL Aftnitrira25.814.0-18.0 g/rNAhchxjjuok34.442.0-54.0 %Mean Corpuscular Yztbtd20.4 80.0-94.0 fLMean Corpuscular Uubfldlhnu53.225.9-34.0 pgMean Corpuscular HGB Conc 34.229.9-35.2 g/dLRed Cell Distribution Width13.711.0-15.0 %Platelet Efsko453 150-450 10 3/uLMean Platelet Volume9.39.5-13.5 fLNeutrophils Percent Auto56.9 43.0-75.0 %Lymphocytes Percent Auto34.820.5-60.0 %Monocytes Percent Auto6.31.7- 12.0 %Eosinophils Percent Auto1.10.9-7.0 %Basophils Percent Auto0.30.2-2.0 % Immature Granulocytes Pct Auto0.60.0-0.5 %Neutrophils Absolute Auto5.01.4-6.5 10 3/uLLymphocytes Absolute Auto3.11.2-3.8 10 3/uLMonocytes Absolute Auto0.60.3- 0.8 10 3/uLEosinophils Absolute Auto0.10.0-0.7 10 3/uLBasophils Absolute Auto0.0 0.0-0.1 10 3/uLImmature Granulocytes Abs Auto0.050.00-0.03 10 3/uLPerforming Lab:see noteML - [facility] LBOccult Blood* Reviewed date:04/09/2024 08:38:06 PM Interpretation: Performing Lab: Notes/Report: [facility] ,Occult BloodNegativePerforming Lab:see noteML - [facility] LB FERRITIN Reviewed date:04/08/2024 08:20:11 PM Interpretation: Performing Lab: Notes/Report: [facility] ,Kpmnqlkk240.026.0-388.0 ng/mLPerforming Lab:see noteML - [facility] LBPROF 14(COMP METB) Reviewed date:04/01/2024 01:47:50 PM Interpretation: Performing Lab: Notes/Report: [facility] ,Hflcuz658659-267 mmol/LPotassium4.13.5-5.1 mmol/DFhvuqunf78149-185 mmol/LCarbon Vbfugdr36.821.0-32.0 mmol/LAnion Gap14.8Rdvevwz3521-162 mg/dLBlood Urea Onjgmqqa17.07.0-18.0 mg/dLCreatinine1.300.70-1.30 mg/dLEstimated GFR ( Anu>60>=60 mL/min/1.73m 2Estimated GFR (Non- Ally>60>=60 mL/min/1.73m 2BUN Creatinine Ratio10.5Dllnwfb0.88.5-10.1 mg/dLBilirubin Total0.40.2-1.0 mg/dL Aspartate Amino Bdaocizrdzd2750-43 U/LAlanine Ksjtxyuhgmkfhxne5099-32 U/L Alkaline Iipyvvtnfve4711-720 U/LTotal Protein7.46.4-8.2 g/dLAlbumin Level3.93.4- 5.0 g/dLGlobulin3.5Albumin Globulin Ratio1.1Performing Lab:see noteML - [facility] LBIRON Reviewed date:04/01/2024 01:47:50 PM Interpretation: Performing Lab: Notes/Report: [facility] ,Iron85.065.0-175.0 ug/dLPerforming Lab:see noteML - [facility] LBCBC AUTO DIFF Reviewed date:04/01/2024 01:47:50 PM Interpretation: Performing Lab: Notes/Report: [facility] ,White Blood Count5.44.0-11.0 10 3/uLRed Blood Count4.494.70-6.10 10 6/uL Dorqmzicim09.814.0-18.0 g/gMDyoywnxpyd94.142.0-54.0 %Mean Corpuscular Adrink22.5 80.0-94.0 fLMean Corpuscular Yzbnjbyirl37.725.9-34.0 pgMean Corpuscular HGB Conc 33.629.9-35.2 g/dLRed Cell Distribution Width13.511.0-15.0 %Platelet Cyths725 150-450 10 3/uLMean Platelet Volume9.89.5-13.5 fLNeutrophils Percent Auto60.4 43.0-75.0 %Lymphocytes Percent Auto28.720.5-60.0 %Monocytes Percent Auto6.81.7- 12.0 %Eosinophils Percent Auto3.00.9-7.0 %Basophils Percent Auto0.70.2-2.0 % Immature Granulocytes Pct Auto0.40.0-0.5 %Neutrophils Absolute Auto3.31.4-6.5 10 3/uLLymphocytes Absolute Auto1.61.2-3.8 10 3/uLMonocytes Absolute Auto0.40.3- 0.8 10 3/uLEosinophils Absolute Auto0.20.0-0.7 10 3/uLBasophils Absolute Auto0.0 0.0-0.1 10 3/uLImmature Granulocytes Abs Auto0.020.00-0.03 10 3/uLPerforming Lab:see noteML - [facility] LBCBC AUTO DIFF Reviewed date:03/25/2024 02:32:52 PM Interpretation: Performing Lab: Notes/Report: [facility] ,White Blood Count4.84.0-11.0 10 3/uLRed Blood Count4.424.70-6.10 10 6/uL Yhxqeizqav31.714.0-18.0 g/uGAxaookgjxj25.542.0-54.0 %Mean Corpuscular Mgpskx20.6 80.0-94.0 fLMean Corpuscular Fmymczscrv71.025.9-34.0 pgMean Corpuscular HGB Conc 33.829.9-35.2 g/dLRed Cell Distribution Width13.211.0-15.0 %Platelet Mjlhp810 150-450 10 3/uLMean Platelet Volume9.49.5-13.5 fLNeutrophils Percent Auto61.0 43.0-75.0 %Lymphocytes Percent Auto27.820.5-60.0 %Monocytes Percent Auto6.51.7- 12.0 %Eosinophils Percent Auto3.40.9-7.0 %Basophils Percent Auto1.10.2-2.0 % Immature Granulocytes Pct Auto0.20.0-0.5 %Neutrophils Absolute Auto2.91.4-6.5 10 3/uLLymphocytes Absolute Auto1.31.2-3.8 10 3/uLMonocytes Absolute Auto0.30.3- 0.8 10 3/uLEosinophils Absolute Auto0.20.0-0.7 10 3/uLBasophils Absolute Auto0.1 0.0-0.1 10 3/uLImmature Granulocytes Abs Auto0.010.00-0.03 10 3/uLPerforming Lab:see noteML - [facility] LBMR head/brain wo/w con Reviewed date:03/20/2024 08:35:02 PM Interpretation: Performing Lab: Notes/Report: Source Facility: [place] [address] Magnetic Resonance Report Signed Patient: OLEGARIO DONALD MR#: [id number] : 1990 Acct:[id number] Age/Sex: 33 / M ADM Date: 03/20/24 Loc: MRI Attending Dr: Latricia Guzman M.D. Ordering Physician: Latricia Guzman M.D. Date of Service: 03/20/24 Procedure(s): MR head/brain wo/w con Accession Number(s): [id number] cc: Latricia Guzman M.D. [place] [address] Patient Name: OLEGARIO DONALD MRN: [id number] date: 1990 Sex: M Assigned Patient Location: MRI Current Patient Location: MRI Accession/Order Number: [id number] Exam Date: 03/20/2024 12:45 Report Date: 03/20/2024 [...] Signed By: 03/20/24 1559 DD/ 1557 TD/TT: Corporate Compliance Officer:FERRITIN Reviewed date:03/18/2024 01:04:34 PM Interpretation: Performing Lab: Notes/Report: [facility] ,Rgxjfsif849.026.0-388.0 ng/mLPerforming Lab:see noteML - [facility] LBCBC AUTO DIFF Reviewed date:03/18/2024 01:04:34 PM Interpretation: Performing Lab: Notes/Report: [facility] ,White Blood Count4.24.0-11.0 10 3/uLRed Blood Count4.484.70-6.10 10 6/uL Ndjaltzygg09.614.0-18.0 g/uDOlmqnhlzax10.642.0-54.0 %Mean Corpuscular Qpytat81.6 80.0-94.0 fLMean Corpuscular Hnxvcoeidb39.425.9-34.0 pgMean Corpuscular HGB Conc 33.529.9-35.2 g/dLRed Cell Distribution Width12.911.0-15.0 %Platelet Bqjmc294 150-450 10 3/uLMean Platelet Volume9.19.5-13.5 fLNeutrophils Percent Auto53.2 43.0-75.0 %Lymphocytes Percent Auto33.320.5-60.0 %Monocytes Percent Auto10.01.7- 12.0 %Eosinophils Percent Auto2.10.9-7.0 %Basophils Percent Auto1.20.2-2.0 % Immature Granulocytes Pct Auto0.20.0-0.5 %Neutrophils Absolute Auto2.21.4-6.5 10 3/uLLymphocytes Absolute Auto1.41.2-3.8 10 3/uLMonocytes Absolute Auto0.40.3- 0.8 10 3/uLEosinophils Absolute Auto0.10.0-0.7 10 3/uLBasophils Absolute Auto0.1 0.0-0.1 10 3/uLImmature Granulocytes Abs Auto0.010.00-0.03 10 3/uLPerforming Lab:see noteML - [facility] LBPROF 14(COMP METB) Reviewed date:03/12/2024 06:37:51 PM Interpretation: Performing Lab: Notes/Report: [facility] ,Qjqhmp891915-019 mmol/LPotassium4.73.5-5.1 mmol/XDnfuncso69624-670 mmol/LCarbon Scidyjv58.321.0-32.0 mmol/LAnion Gap14.2Yoslvwo3912-574 mg/dLBlood Urea Gqzzcwwt32.07.0-18.0 mg/dLCreatinine1.300.70-1.30 mg/dLEstimated GFR ( Anu>60>=60 mL/min/1.73m 2Estimated GFR (Non- Ally>60>=60 mL/min/1.73m 2BUN Creatinine Ratio10.5Rnhclcu6.68.5-10.1 mg/dLBilirubin Total0.40.2-1.0 mg/dL Aspartate Amino Vmgtmaielvu1334-98 U/LAlanine Xcppohbyqubbpcuk7118-48 U/L Alkaline Gxeqkiunztf0334-678 U/LTotal Protein7.76.4-8.2 g/dLAlbumin Level3.83.4- 5.0 g/dLGlobulin3.9Albumin Globulin Ratio1.0Performing Lab:see noteML - [facility] LBCBC AUTO DIFF Reviewed date:03/12/2024 06:37:51 PM Interpretation: Performing Lab: Notes/Report: [facility] ,White Blood Count7.34.0-11.0 10 3/uLRed Blood Count4.674.70-6.10 10 6/uL Ngvuenucht42.114.0-18.0 g/oVNjuidtmgud35.642.0-54.0 %Mean Corpuscular Ayfwgi79.2 80.0-94.0 fLMean Corpuscular Tuxfibwurs49.225.9-34.0 pgMean Corpuscular HGB Conc 33.129.9-35.2 g/dLRed Cell Distribution Width13.011.0-15.0 %Platelet Raudr522 150-450 10 3/uLMean Platelet Volume9.29.5-13.5 fLNeutrophils Percent Auto67.4 43.0-75.0 %Lymphocytes Percent Auto21.820.5-60.0 %Monocytes Percent Auto8.61.7- 12.0 %Eosinophils Percent Auto1.00.9-7.0 %Basophils Percent Auto0.80.2-2.0 % Immature Granulocytes Pct Auto0.40.0-0.5 %Neutrophils Absolute Auto4.91.4-6.5 10 3/uLLymphocytes Absolute Auto1.61.2-3.8 10 3/uLMonocytes Absolute Auto0.60.3- 0.8 10 3/uLEosinophils Absolute Auto0.10.0-0.7 10 3/uLBasophils Absolute Auto0.1 0.0-0.1 10 3/uLImmature Granulocytes Abs Auto0.030.00-0.03 10 3/uLPerforming Lab:see noteML - [facility] LBVitamin B12 Reviewed date:03/05/2024 02:33:53 PM Interpretation: Performing Lab: Notes/Report: Jeb ,Vitamin R60290378-6400 pg/mL Performed at: [address] [id number] [employer] Child Caregiver: Justino Aragon PhD, Phone: [phone] Performing Lab:see [facility] - [facility] LBManual Differential Reviewed date:03/04/2024 08:01:19 PM Interpretation: Performing Lab: Notes/Report: [facility] ,Segmented Neutrophils % Afmyxh30.043.0-75.0Band Neutrophils %4.00-5 % Lymphocytes Percent Deyksk76.020.5-60.0 %Monocytes Percent Manual7.01.7-12.0 % Eosinophils Percent Manual4.00.9-7.0 %Basophils Percent Manual2.00.2-2.0 % Segmented Neut Absolute Manual1.701.4-6.5 10 3/uLBand Neutrophils Absolute0.1 0.0-0.3 10 3/uLLymphocytes Absolute Manual1.121.20-3.80 10 3/uLMonocytes Absolute Manual0.230.30-0.80 10 3/uLEosinophils Absolute Manual0.130.00-0.70 10 3/uLBasophils Abs Manual0.060.00-0.10 10 3/uLPerforming Lab:see noteML - [facility] LBCBC AUTO DIFF Reviewed date:03/04/2024 08:01:19 PM Interpretation: Performing Lab: Notes/Report: [facility] ,White Blood Count3.44.0-11.0 10 3/uLRed Blood Count3.594.70-6.10 10 6/uL Jaxdysflsa99.014.0-18.0 g/yEGjdquqmgeb15.642.0-54.0 %Mean Corpuscular Rrnzhr40.8 80.0-94.0 fLMean Corpuscular Amwsffptxz52.625.9-34.0 pgMean Corpuscular HGB Conc 33.729.9-35.2 g/dLRed Cell Distribution Width12.311.0-15.0 %Platelet Feceu474 150-450 10 3/uLMean Platelet Qethhw27.59.5-13.5 fLPerforming Lab:see noteML - [facility] LBFSGLU Reviewed date:02/26/2024 10:03:20 PM Interpretation: Performing Lab: Notes/Report:Glucose, Whole Gezti39145-567 mg/dLCT abdomen pelvis wo con Reviewed date:02/25/2024 08:53:17 PM Interpretation: Performing Lab: Notes/Report: Source Facility: [facility] [place] [address] CT Scan Report Signed Patient: OLEGARIO DONALD MR#: [id number] : 1990 Acct:[id number] Age/Sex: 33 / M ADM Date: 02/25/24 Loc: ER Attending Dr: Ordering Physician: Elva Finney Date of Service: 02/25/24 Procedure(s): CT abdomen pelvis wo con Accession Number(s): [id number] cc: Latricia Guzman M.D. [place] [address] Patient Name: OLEGARIO DONALD MRN: [id number] date: 1990 Sex: M Assigned Patient Location: ER Current Patient Location: Accession/Order Number: [id number] Exam Date: 02/25/2024 11:35 Report Date: 02/25/2024 [...] Alvarado M.D. Signed By: 02/25/24 1316 DD/ 12 TD/TT: Corporate Compliance Officer:XR cervical spine 2-3V Reviewed date:11/04/2024 08:26:28 PM Interpretation: Performing Lab: Notes/Report: Source Facility: [place] [address] XRay Report Signed Patient: OLEGARIO DONALD MR#: [id number] : 1990 Acct:[id number] Age/Sex: 34 / M ADM Date: 11/04/24 Loc: RAD Attending Dr: Latricia Guzman M.D. Ordering Physician: Latricia Guzman M.D. Date of Service: 11/04/24 Procedure(s): XR cervical spine 2-3V Accession Number(s): [id number] cc: Latricia Guzman M.D. [place] [address] Patient Name: OLEGARIO DONALD MRN: [id number] date: 1990 Sex: M Assigned Patient Location: [facility] Current Patient Location: [facility] Accession/Order Number: [id number] Exam Date: 11/04/2024 16:05 Report Date: 11/04/2024 [...] Cm M.D. 11/04/2024 4:09 PM Dictation Location: [place] [address] Electronically authenticated by: [id number] Y Date: 11/04/2024 16:09 Dictated By: Kirk Cm D.O. Signed By: 11/04/24 1611 DD/ 1609 TD/TT: Corporate Compliance Officer:[id number], Flu A+B IH Reviewed date:02/25/2024 08:53:17 PM Interpretation: Performing Lab: Notes/Report: COVIDnegFLU AnegFLU BnegControlpresent Reason For Referral Reason seizure like activit y, intractable headache since Diagnosis 1 Migraine (G43.909) Diagnosis 2 Seizure (R56.9) Referral Organization [facility] Referring Provider First Name Keena Referring Provider Last Name [place] Referring Provider [facility] Referred Provider Hayley Suárez Referred Provider Specialty Neurology Referral Priority Routine Diagnosis 1 Seizure (R56.9) Referral Organization [facility] Referring Provider First Name Humberto Referring Provider Last Name [facility] Referring Provider [facility] Referred Provider undefined Referred Provider Specialty Neurology Referral Priority Routine Diagnosis 1 Nevus (D22.9) Referral Organization [facility] Referring Provider First Name Humberto Referring Provider Last Name [facility] Referring Provider [facility] Referred Provider Gaston Oh Referred Provider Specialty General Surg colleen Referral Priority Routine Diagnosis 1 Abnormal renal funct ion (N28.9) Referral Organization [facility] Referring Provider First Name Humberto Referring Provider Last Name [facility] Referring Provider [facility] Referred Provider Isidro Zepeda Referred Provider Specialty Nephrology Referral Priority Routine Medications Medication SIG (Take, Route, Frequency, Duration) Notes Start Date End Date Status Ondansetron 4 MG 1 tablet on the tong ue and allow to dissolve Orally TID; Duration: 30 days PRN 01/31/2024 ActiveLaMICtal 25 MG1 tablet Orally 3 times a day; Duration: 90 days09/19/2024 ActiveExcedrin MigrainePRNActiveSodium ChlorideActiveNurtec 75 MG1 tablet on the tongue and allow to dissolve Orally daily as needed; Duration: 30 days 4ActiveFludrocortisone Acetate 0.1 mgTAKE 2 TABLETS BY MOUTH ONCE DAILY FOR 30 DAYS; Duration: 30 daysActiveHyoscyamine Sulfate 0.125 MG1-2 tabs SL SL every 4 hrs PRN abd pain5Active Social History Tobacco Use: Social History Observation Description Date Details (start date - stop date) Former Smoker 03/01/2000 - 03/01/2024 Tobacco Use/Smoking Question Answer Notes Patient is a current smoker When did you start smoking?05/01/2002How often do you smoke cigarettes?every day How many cigarettes a day do you smoke?11-20How soon after you wake up do you smoke your first cigarette?within 5 minutesAre you interested in quitting?Not ready to quitAlcohol Screen (Audit-C) Question Answer Notes Did you have a drink containing alcohol in the p ast year? No Hzpxkz5IposnqcklgcnuiYpuwfecfJfnrnio Control (Standard) Question Answer Notes Tobacco use: Former smoker When did you start smoking?03/01/2000When did you stop smoking?03/01/2024How long has it been since you last smoked?Less than 1 monthAUDIT-C (Standard) Question Answer Notes Did you have a drink containing alcohol in the p ast year? Yes How often did you have a drink containing alcohol in the past year?Never (0 point)How many drinks did you have on a typical day when you were drinking in the past year?1 or 2 drinks (0 point)How often did you have six or more drinks on one occasion in the past year?Less than monthly (1 point)Points1 InterpretationNegative Problems Problem Type SNOMED Code ICD Code Onset Dates Problem Status W/U Status Risk Notes Problem Candidiasis of mouth (63988239) Candidal stomatitis (B37.0) ActiveconfirmedProblemAnemia (332159438)Anemia, unspecified (D64.9)Active confirmedProblemHypokalemia (03014709)Hypokalemia (E87.6)ActiveconfirmedProblem Varicose veins of lower extremity (61908136)Asymptomatic varicose veins of unspecified lower extremity (I83.90)ActiveconfirmedProblemPeripheral venous insufficiency (06563011)Venous insufficiency (chronic) (peripheral) (I87.2) ActiveconfirmedProblemChondromalacia (29036307)Chondromalacia, unspecified site (M94.20)ActiveconfirmedProblemChondromalacia (94797805)Chondromalacia, 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)ActiveconfirmedProblemSnoring (57291667)Snoring (R06.83)Active confirmedProblemNeck pain (72494806)Neck pain (M54.2)ActiveconfirmedProblem Syncope (211984615)Syncope (R55)ActiveconfirmedProblemMigraine (88243197) Migraine (G43.909)ActiveconfirmedProblemAcute sinusitis (29298485)Acute sinusitis (J01.90)ActiveconfirmedProblemKidney stone (06189061)Kidney stones (N20.0)ActiveconfirmedProblemPain of right knee region (finding) (991694526988622)Knee pain, right (M25.561)ActiveconfirmedProblemWell adult (413426976)Well adult (Z00.00)ActiveconfirmedProblemLeg pain (18202071)Leg pain (M79.606)ActiveconfirmedProblemObstructive uropathy (8414672)Obstructive uropathy (N13.9)ActiveconfirmedProblemMemory loss (99146741)Memory loss (R41.3) ActiveconfirmedProblemOverweight (026394840)Over weight (E66.3)Activeconfirmed ProblemNeutropenia (048616173)Neutropenia (D70.9)ActiveconfirmedProblemAcute gastritis (02947014)Acute gastritis (K29.00)ActiveconfirmedProblemNevus (1448253699)Nevus (D22.9)ActiveconfirmedProblemElbow pain (41911596)Elbow pain (M25.529)ActiveconfirmedProblemSeizure (52582475)Seizure (R56.9)Activeconfirmed ProblemAdult health examination (408960099)Encounter for routine adult health examination (Z00.00)ActiveconfirmedProblemPeripheral vertigo (86069996)Vertigo, peripheral (H81.399)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) (9501598495234753)Juvenile osteochondrosis of tibia tubercle, 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 Vital Signs Temperature 99.0 degrees Fahrenheit 02/22/2024 Blood pressure kamfynpaw18 mm Hg01/24/20259312Ukapso04 in01/24/2025lood pressure mm Hg01/24/20252949Mrcghy443.6 lbs01/24/2025BMI32.43 kg/m201/24/2025 Procedures Procedure Date Ordered Date Performed Result Body Sit e Sleep study - Diagnostic Polysonogram 02/22/2024 N/ACARDIO Cerzaulvyorkfk57/21/2025N/ATILT TABLE CYACGVRYXB29/20/2025N/A Encounters Encounter Location Date Provider Diagnosis [address] [address] 02/22/2024 Humberto Hoy Lethargy R53.83 and Body aches R52 [address] [address] 03/05/2024 Humberto Hoy Seizure R56.9 and Neutropenia D70.[address] [address] 03/08/2024 Keena [place] Migraine G43.909 and Seizure R56.[address] [address] 03/14/2024 Humberto Hoy Over weight E66.3 an d Seizure R56.[address] [address] 06/25/2024 Humberto Hoy Seizure R56.9 ; Migraine G43.909 and Syncope R55 [address] [address] 08/19/2024 Humberto Hoy Nevus D22.9 ; Orthostatic dizziness R42 and Migraine G43.[address] [address] 09/19/2024 Humberto Hoy Syncope R55 and Migraine G43.909 [facility] [address] [facility] [place] [address] 10/14/2024 Humberto Hoy Well adult Z00.00 [facility] [address] [facility] [place] [address] 11/04/2024 Humberto Hoy Neck pain M54.2 and Elbow pain M25.529 [facility] [address] [facility] [place] [address] 11/20/2024 Humberto Hoy Migraine G43.909 [facility] [address] [facility] [place] [address] 01/15/2025 Humberto Hoy Syncope R55 [facility] [address] [facility] [place] [address] 01/24/2025 Humberto Hoy Acute gastritis K29.00 [facility] [address] [facility] [place] [address] 03/04/2024 Humberto Hoy [facility] [facility] [place] [address] 03/05/2024ouBenjamin [facility] [facility] [place] [address]/oug [facility] [facility] [place] [place] [address]/oug [facility] [facility] [place] [place] [address]/amelMethodist Jennie [facility] [facility] [place] [address]/oug Hoy Memory loss R41.3 and Tremor of right hand R25.1BSan [facility] [address] [facility] [place] [address]/4Doug [facility] [facility] [place] [place] [address]/4Doug Hoy Over weight E66.3BSan [facility] [place] [address]/oug HoySeizure R56.9 and Memory loss R41.3BSan [facility] [place] [address]/ Humberto HoyAbnormal renal function N28.9BSan [facility] [place] [address]/oug [facility] [place] [address]/oug [facility] [place] [address] Humberto [facility] [place] [address]/oug [facility] [place] [address]/oug [facility] [place] [address]/oug [facility] [place] [address]/oug [facility] [place] [address]/06/2023 Humberto HoyAnemia, unspecified D64.9BS[facility] [place] [address]/[facility] [address] [place] [address]/[facility] [place] [address]/4[facility] [place] [address] 04/17/2024ouBen[facility] [place] [address]/oug [facility] [place] [address]/[facility] [place] [address]/06/2024Doug HoySeizure R56.9BSan [facility] [place] [address]/01/2025 Humberto HoySeizure R56.9B[facility] [place] [address]/Doug [facility] [place] [address]/Doug HoySnoring R06.83[facility] [place] [address]/07/2024Doug [facility] [place] [address]/ Humberto [facility] [place] [address]/Doug [facility] [place], [place] [address]/05/2024[facility] [place] [address]/09/2024[facility] [place] [address]/[facility] [place] [address]/ Humberto HoySyncope Q59NlinvwjSan [facility] [place] [address]/[facility] [place] [address]/[facility] [address] [place] [address]/[facility] [place] [address]/06/2024Doug Hoy Syncope R55 and Snoring R06.83[facility] [place] [address]/09/2024Doug HoySyncope E75CelrbjlSan [facility] [place] [address]/[facility] [place] [address]/06/2024 Humberto HoyAbnormal renal function N28.9BSan [facility] [facility] [place] [address]/10/2024[facility] [facility] [place] [address]/12/2024[facility] [place] [address]/ Humberto [facility] [facility] [place] [address]/[facility] [place] [address]/[facility] [place] [address]/[facility] [place] [place] [address]/Doug HoySyncope R55 and Seizure R56.9BSan [facility] [place] [address]/08/2024[facility] [place] [address]/03/2025Doug HoySyncope Q48AmivfvbSan [facility] [facility] [place] [address]/[facility] [facility] [place] [address]/ [facility] [facility] [place] [address]/[facility] ([place] [place] [facility] [address]/[facility] [facility] [place] [address]/[facility] [facility] [place] [address]/[facility] [facility] [place] [address]/ Humberto Guzman Assessments Encounter Date Diagnosis (ICD Code) Assessment Notes Treatment Notes Treatment Clinical Notes Section Notes 03/05/2024 Seizure (ICD-10 - R56.9) reviewed EEG - no seizure activity noted03/08/2024Migraine (ICD-10 - G43.909) TOradol norflex samples nurtec fu INGRID 03/14/2024Over weight (ICD-10 - E66.3)03/14/2024Seizure (ICD-10 - R56.9) 02/22/2024Lethargy (ICD-10 - R53.83)02/22/2024ody aches (ICD-10 - R52) 03/05/2024Neutropenia (ICD-10 - D70.9)08/19/2024Nevus (ICD-10 - D22.9)08/19/2024 Orthostatic dizziness (ICD-10 - R42)09/19/2024Syncope (ICD-10 - R55)09/19/2024 Migraine (ICD-10 - G43.909)10/14/2024Well adult (ICD-10 - Z00.00)11/04/2024Neck pain (ICD-10 - M54.2)11/04/2024Elbow pain (ICD-10 - M25.529)11/20/2024Migraine (ICD-10 - G43.909)01/15/2025Syncope (ICD-10 - R55)01/24/2025ute gastritis (ICD-10 - K29.00)03/11/2024Memory loss (ICD-10 - R41.3)03/11/2024Tremor of right hand (ICD-10 - R25.1)03/15/2024Over weight (ICD-10 - E66.3)03/18/2024Memory loss (ICD-10 - R41.3)03/18/2024Seizure (ICD-10 - R56.9)03/18/2024bnormal renal function (ICD-10 - N28.9)04/01/2024nemia, unspecified (ICD-10 - D64.9) 07/01/2024Seizure (ICD-10 - R56.9)07/08/2024Seizure (ICD-10 - R56.9)07/25/2024 Snoring (ICD-10 - R06.83)09/17/2024Syncope (ICD-10 - R55)10/01/2024Syncope (ICD- 10 - R55)10/04/2024Syncope (ICD-10 - R55)10/30/2024bnormal renal function (ICD- 10 - N28.9)11/27/2024Syncope (ICD-10 - R55)11/27/2024Seizure (ICD-10 - R56.9) 12/10/2024Syncope (ICD-10 - R55)06/25/2024Migraine (ICD-10 - G43.909)beter with jason propranolol but near syncope worse06/25/2024Seizure (ICD-10 - R56.9)seeing new qvdyxmsrryp72/21/2025Migraine (ICD-10 - G43.909)10/01/2024Snoring (ICD-10 - R06.83)06/25/2024Syncope (ICD-10 - R55)wonder if mor hbewihtrhsd66/08/2024 Seizure (ICD-10 - R56.9) recent sz like activity headache since MRI, CT brain WNL EEG ok 02/22/2024OtherRecommended to rest and use a heating pad [...] MEDICAID [place] ONLY [address] [place], [place] [id number] Marjorie Donaldelf - patient is the [id number] 2022UCKEYE [place] MEDICAIDPO [address] [place] [id number], AaronSelf - patient is the insured Medications Administered Medication Instructions Date of Administration Dosage Notes Kenalog-40 mg120 mhKenalog-401 tn428Tfjqmgqok Tromethamine ed42waTmhokyowa Zmowzjckhkhf50/20/202360 tz39Ntxjmixfu Tromethamine mgKetorolac Nqgvmnifarys90/01/202360 mgKetorolac Tromethamine ft52Hifaaclch Txjhtwbiupdf36/02/202460 mgKetorolac Tromethamine mgKetorolac Alffwzupxjnz85/07/547343 mgKetorolac Tromethamine 0 mgOrphenadrine Xoexusu00 mgOrphenadrine Tpgwqmm9011/04/2024 60 mg Medical (General) History Medical History History ICD Code Over weight E66.3 Acute sinusitis J01.90 Obstructive uropathy N13.9 Kidney stones N20.0 Vertigo, peripheral H81.399 Knee pain, right M25.561 Snoring R06.83 Encounter for routine adult health exami nation Z00.00 Surgical History Surgery Date(Month/Year) Chondroplasty, Lateral relea se, Mini Arthrotomy w/excision of Asgood-Schlatter ossicle 03/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
--- OUTSIDE RECORDS SUMMARY | 2025-02-18 11:51 | XMS_ITS | Clinical Summary ---
Author Organization [facility] Address [address], [address] [place] [address] Care Team Providers Care Children'S Entertainer Name Role Phone Jc Guzman MD Primary Care Provider [phone] Allergies Active AllergyReactionsCriticalityNoted DateCommentsNaproxenNausea And Vomiting Low03/03/2023 Medications MedicationSigDispense QuantityRefillsLast FilledStart DateEnd DateStatus gabapentin (NEURONTIN) 600 MG tablet Take 0.5 tablets by mouth 2 times daily.Active celecoxib (CELEBREX) 200 MG capsule Take 1 capsule by mouth dailyActive pantoprazole (PROTONIX) 20 MG tablet Take 2 tablets by mouth nightlyActive ondansetron (ZOFRAN-ODT) 4 MG disintegrating tablet Take 1 tablet by mouth daily01/31/2024ctive Cephalexin 500 MG TABS Take 500 mg by mouth in the morning and at xznlqze5002/22/2024ctive ketorolac (TORADOL) 10 MG tablet Take 1 tablet by mouth every 6 hours as needed for Pain 10 tablet 03/02/2024ctive ferrous sulfate (IRON 325) 325 (65 Fe) MG tablet Take 1 tablet by mouth daily (with breakfast) 30 tablet ctive nicotine (NICODERM CQ) 14 MG/24HR Place 1 patch onto the skin daily 30 patch ctive Active Problems ProblemNoted DateDiagnosed XxgyTksdmkydfkwf07/30/2024New onset ogrjdot9302/26/2024 Social History Tobacco UseTypesPacks/DayYears UsedDateSmoking Tobacco: Every DayCigarettes Smokeless Tobacco: Former Tobacco Cessation:Ready to Q uit: Not Asked; Counseling Given: Not Answered Alcohol UseStandard Drinks/WeekCommentsNot Currently0 (1 standard drink = 0.6 oz pure alcohol)[facility] UtilitiesAnswerDate RecordedIn the past 12 months has the [employer], gas, oil, or water [employer] threatened to shut off services in your home?No02/27/2024Hunger Vital SignAnswerDate RecordedWithin the past 12 months, you worried that your food would run out before you got the money to buymore. Never true02/27/2024Within the past 12 months, the food you bought just didn't last and you didn't have money to get more.Never true02/27/2024RAPARE - TransportationAnswerDate RecordedIn the past 12 months, has lack of transportation kept you from medical appointments or from getting medications?No 02/27/2024In the past 12 months, has lack of transportation kept you from meetings, work, or from getting things needed for daily living?No02/27/2024 Housing Stability Vital SignAnswerDate RecordedIn the last 12 months, was there a time when you were not able to pay the mortgage or rent on time?No02/27/2024In the past 12 months, how many times have you moved where you were living?1 02/27/2024t any time in the past 12 months, were you homeless or living in a usp (including now)?No02/27/2024Food InsecurityAnswerDate RecordedWithin the past 12 months, you worried that your food would run out before you got the money to buymore.Within the past 12 months, the food you bought just didn't last and you didn't have money to get more.Interpersonal Safety Domain Source: IP Abuse ScreeningAnswerDate RecordedPhysical abuseDenies 10/29/2024Verbal mfchuOvnriw94/29/2024Emotional fzubmTmahce82/29/2024Financial ftyjkQmhgvf75/29/2024Sexual dbajtSzvaok17/29/2024Sex and Gender InformationValue Date RecordedSex Assigned at BirthNot on fileLegal FhbJwhw78/19/2023 10:33 AM EDTGender IdentityNot on fileSexual OrientationNot on file Last Filed Vital Signs Vital SignReadingTime TakenCommentsBlood Ngmqivzw367/7203/02/2024 11:02 AM EDT Opkct526803/02/2024 11:02 AM JANBsfnttnfoee75.1 ??C (98.8 ??F)03/02/2024 11:02 AM EDTRespiratory Fbfe896205/02/2023 11:02 AM EDTOxygen Xxjtsmkqfx73%03/02/2024 11:02 AM EDTInhaled Oxygen Concentration--Nbdaxs68.8 kg (215 lb 8 oz)03/01/2024 3:44 AM HAHPoawgb894.3 cm (5' 9 )02/27/2024 12:30 AM EDTBody Mass Index31.82 02/27/2024 12:30 AM EDT Plan of Treatment Health MaintenanceDue DateLast DoneCommentsDTaP/Tdap/Td vaccine (6 - Tdap) , 01/10/1994, 03/12/1993, Additional history exists Depression Lwprlp4708/17/2004Varicella vaccine (1 of 2 - 13+ 2-dose series) 2005Hepatitis C kdfmyb8508/17/2010Pneumococcal 0-49 years Vaccine (1 of 2 - PCV)08/18/2011Flu vaccine (#1)5COVID-19 Vaccine (1 - season) 2024Hepatitis B nqmmajxSypjoljva02/12/1994, 01/01/1993, 1992Hib hbtsqlfTolnakivl84/12/1994, 03/12/1993, 01/01/1993, Additional history exists Polio sxjcbsrGkzbxtnlc77/28/1998, 01/10/1994, 01/01/1993, Additional history existsHIV yjfaakUpqxmpasf96/30/2024HPV vaccine (No Doses Required)Completed Hepatitis A vaccineAged OutNo longer eligible based on patient's age to complete this topicMeningococcal (ACWY) vaccineAged OutNo longer eligible based on patient's age to complete this topicMeningococcal B vaccineAged OutNo longer eligible based on patient's age to complete this topic Procedures Procedure NamePriorityDate/TimeAssociated DiagnosisCommentsHIV SCREENRoutine 02/28/2024 12:02 PM EDT from Last 3 Months or Most Recently Relevant to Health Maintenance Results * HIV Screen (02/28/2024 12:02 PM EDT)ComponentValueRef RangeTest MethodAnalysis TimePerformed AtPathologist SignatureHIV Ag/AbSEE BELOW02/29/2024 2:54 AM EDT [facility]Comment: HIV Ag/Ab ?NONREACTIVE ? NR No laboratory evidence of HIV infection. ??If acute HIV infection is suspected, consider testing for HIV-1 RNA. Performed at [facility], [address] [place] [address] ??. Specimen (Source)Anatomical Location / LateralityCollection Method / Volume Collection TimeReceived TimeBLOOD SPECIMEN / Ywudolt9602/28/2024 12:02 PM EDT 02/28/2024 12:21 PM EDT Narrative Authorizing ProviderResult TypeResult StatusChapis Rizvi MDIMMUNOLOGY ORDERABLESFinal ResultPerforming OrganizationAddressCity/State/ZIP CodePhone Number [facility] [address] [place] [address], [facility] [[email or web address]] [phone] [address], [facility] [[email or web address]] [phone] from Last 3 Months or Most Recently Relevant to Health Maintenance Insurance Advance Directives TypeDate RecordedPatient RepresentativeExplanationACP-Advance Lhiufswyu01/5/2024 10:18 AMACP-Advance Nlqogralu33/31/2024 2:09 PM * Full Code (Latest Code Status on File) Date ActivatedDate HpmcrdvtwrsNfvgqvtp94/29/2024 12:32 AM03/02/2024 5:23 PM NameRelationshipHealthcare Agent RelationshipCommunicationDaisy Posada Primary Decision Maker* Hiren WiliParentSecondary Decision Maker* Care Teams Team MemberRelationshipSpecialtyStart DateEnd Jc Guzman MD [address] [place] [address] PCP - GeneralFamily Dpssifxs27/19/23
--- OUTSIDE RECORDS SUMMARY | 2025-02-18 11:51 | XMS_ITS | Clinical Summary ---
Author Organization [employer] tem Address [id number] [address] [place] [address] Care Team Providers Care Activated Sludge Attendant Name Role Phone Jc Guzman MD Primary Care Provider [phone] Allergies Active AllergyReactionsCriticalityNoted DateCommentsNaproxenNausea And Vomiting Low03/03/2023 Other Reaction(s): Unknown Medications MedicationSigDispense QuantityRefillsLast FilledStart DateEnd DateStatus ferrous sulfate 325 (65 FE) mg tablet Take 1 tablet (325 mg total) by mouth.4Active rimegepant (NURTEC ODT) 75 mg tablet,disintegrating Indications:Migraine without aura and without status migrainosus, not intractableDissolve 1 tablet on tongue as needed (migraine). Maximum of 1 dose per 24 hours 8 tablet 4Active acetaminophen (TYLENOL EXTRA STRENGTH) 500 mg tablet Take 2 tablets (1,000 mg total) by mouth every 6 (six) hours as needed for pain. Active pantoprazole (PROTONIX) 20 mg EC tablet Take 2 tablets (40 mg total) by mouth.Active dqjouil-fxeifuzzjuxvz-rmmomklb (EXCEDRIN MIGRAINE) 250-250-65 mg per tablet Take 1 tablet by mouth every 6 (six) hours as needed for headaches.Active fremanezumab-vfrm (AJOVY AUTOINJECTOR) 225 mg/1.5 mL Indications:Migraine without aura and without status migrainosus, not intractableInject 1.5 mL (225 mg total) under the skin every 28 days. 1.5 mL 5Active ondansetron (ZOFRAN) 4 mg tablet Indications:Migraine without aura and without status migrainosus, not intractableTake 1 tablet (4 mg total) by mouth every 8 (eight) hours as needed for nausea or vomiting. 30 tablet 5Active propranolol LA (INDERAL LA) 60 mg 24 hr capsule Indications:Migraine without aura and without status migrainosus, not intractableTake 1 capsule (60 mg total) by mouth in the morning. 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 /06/2024Ureteral stone04/05/20247111Ukfoquofarxl60/30/2024New onset xwvxaba0602/26/2024 Resolved Problems ProblemNoted DateDiagnosed DateResolved WsvgOovzcownk46/06/28025606/06/2023 Family History Medical HistoryRelationNameCommentsHeart diseaseFatherCancerMotherLung disease MotherRelationNameStatusCommentsFatherAliveMotherAlive Social History Tobacco UseTypesPacks/DayYears UsedDateSmoking Tobacco: FormerCigarettesStarted: 01/30/2024Smokeless Tobacco: Former Tobacco Cessation:Counseling Given: Not Answered Alcohol UseStandard Drinks/WeekCommentsNot Currently0 (1 standard drink = 0.6 oz pure alcohol)PHQ-2AnswerDate RecordedTotal Vjnwo026/26/2024ChildcareAnswerDate SvjibguxUijtrvxriHuhtknu91/12/2019EmploymentAnswerDate RecordedEmploymentUnknown 10/10/2018Hunger ScreeningAnswerDate RecordedWithin the past 12 months we worried whether our food would run out before we got money to buy more.Never True06/12/2024Within the past 12 months the food we bought just didn't last and we didn't have money to get more.Never True06/12/2024Purpose - LifeAnswerDate RecordedPurpose and direction in akvyMdxqsfh43/11/2021ex and Gender Information ValueDate RecordedSex Assigned at BirthNot on fileLegal JjnIbgv5712/04/2014 11:48 AM EDTGender IdentityNot on fileSexual OrientationNot on file Last Filed Vital Signs Vital SignReadingTime TakenCommentsBlood Iwbmbeff995/8802 10:48 AM EST Xewzk652006/12/2024 10:48 AM ZZNTrrhhhbayqw56.7 ??C (98.1 ??F)04/12/2024 3:20 PM ESTRespiratory Uoqz033106/12/2023 12:29 PM ESTOxygen Ulmrivzura54%05/17/2024 8:48 AM ESTInhaled Oxygen Concentration--Egboeb663.9 kg (229 lb)06/12/2024 10:48 AM TPLPqhggp488.3 cm (5' 9 )06/12/2024 10:48 AM ESTBody Mass Index33.8206/12/2024 10:48 AM EST Plan of Treatment Health MaintenanceDue DateLast DoneCommentsDTaP,Tdap and Td Vaccines (6 - Tdap) , 01/10/1994, 03/12/1993, Additional history existsAdult BMI Follow Up Plan2010Influenza Zoccwdu7912/30/2024Depression Screening dult BMI Efjhdzyck16Tobacco Screening Medical Devices Not on file Insurance Care Teams Team MemberRelationshipSpecialtyStart DateEnd Jc Guzman MD [facility] - General09/15/17
--- OUTSIDE RECORDS SUMMARY | 2025-02-18 11:51 | XMS_ITS | Clinical Summary ---
Author Organization [facility] Address [address] [place] [address] Care Team Providers Care Assistant Associate Full Professor Name Role Phone Jc Guzman MD Primary Care Provider [phone] Keena Simmons MD Unavailable [phone] Social History Tobacco UseTypesPacks/DayYears UsedDateSmoking Tobacco: Never AssessedSex and Gender InformationValueDate RecordedSex Assigned at BirthNot on fileLegal Sex Male07/13/2022 7:07 PM EDTGender IdentityNot on fileSexual OrientationNot on file Plan of Treatment Not on file Care Teams Team MemberRelationshipSpecialtyStart DateEnd Date Jc Guzman MD PCP - GeneralFamily Ouyadnsg75/8/24 Keena Simmons MD [address] [place] [address] Referring PhysicianFamily Nflhnvzo51/8/24
--- OUTSIDE RECORDS SUMMARY | 2025-02-18 11:55 | XMS_ITS | CCD ---
Author Organization [facility] Care Team Providers Care Barrel Assembler Helper Name Role Phone Ltaricia Garcia Primary Care Physician RADHA ., DR ROME Primary Care Unavailable RADHA ., DR ROME Consulting Unavailable RADHA ., DR ROME Admitting Unavailable RADHA ., DR ROME Attending Unavailable MAXIMO, DR SAUMYA Forrester Consulting Unavailable HORTECNIA, DR STEPAN Jerome Consulting Unavailable GATITO ., [...] Unavailable Latricia Garcia MD Primary Care Provider KYM VIDAL Admitting Unavailable RUTH WYMAN Attending Unavailable DOLORES REYES Referring Unavailable RONDA HAWLEY Consulting Unavaila ble HOCarlos, LATRICIA M Primary Care Unavailable Latricia Garcia MD Primary Care Provider [phone] HOY, LATRICIA M Referring Unavailable HOY, LATRICIA M Primary Care Unavailable ARMANDO MEEK Attending Unavailable HOY, LATRICIA M Referring Unavailable HOY, LATRICIA M Primary Care Unavailable ARMANDO MEEK Referring Unavailable HOY, LATRICIA M Primary Care Unavailable BOUMEGOUAS, KLEBEREL Attending Unavailable ARMANDO MEEK Referring Unavailable HOY, [...] Unavailable Latricia Garcia MD Primary Care Provider [phone] Ashley Durand MD Attending Provider [phone] Allergies Allergy ClassificationReported Allergen(s)Allergy TypeDate of OnsetReaction(s) Facility (20 sources)Naproxen; Translations: [naproxen]Drug Ghkasva62-23-0944Gycqghl (qualifier value), [facility] ([facility])NaproxenDrug AllergyThe [facility] Medications Current Medications MedicationDrug Class(es)DatesSig (Normalized)Sig (Original)Acetaminophen (11 sources)Start: 34-31-6038yhdkyrvyrsifp (TYLENOL) tablet 650 mgtake 2 tablets by mouth every six hours as needed for painacetaminophen (TYLENOL EXTRA STRENGTH) 500 mg tablet Take 2 tablets (1,000 mg total) by mouth every6 (six) hours as needed for pain. Activeacetaminophen 250 mg / aspirin 250 mg / caffeine 65 mg oral tablet (6 sources)Platelet Aggregation Inhibitor, Nonsteroidal Anti-inflammatory Drug, Central Nervous System Stimulant, Methylxanthinetake 1 tablet by mouth every six hours as needed for iucbnxhcmyhnpgt-aopcrntngecxz-kfwbycyh (EXCEDRIN MIGRAINE) 250-250-65 mg per tablet Take 1 tablet by mouth every 6 (six) hours as needed for headaches. Tjrehg411 ml calcium gluconate 20 mg/ml injection (1 source)Start: ,000 mg, IntraVENous, at 50 mL/hr, Administer over 120 Minutes, PRN, See admin instructions, Starting on Caro 02/29/24 at 1101, Serum IONIZED Ca Replacement Action 0.80 -1.00 mmol/L Calcium Vfynhkhuc3k IV over 2 hours 0.79 mmol/L or less Calcium Gluconate 2g IV x 2 doses (each 2g over 2 hours) [4gtotal dose] AND notify provider Central line is preferred Infuse every 1 gram over 1 hour Repeat IONIZED calcium level in the AM the following day Protocol not for use in patients with a CrClcelecoxib 200 mg oral capsule (7 sources)Nonsteroidal Anti-inflammatory Drug End: 01-07-8606joyh 1 capsule by mouth once dailycelecoxib (CELEBREX) 200 MG capsule Take 1 capsule by mouth daily Activecephalexin 500 mg oral tablet (5 sources)Cephalosporin AntibacterialStart: 02-22-2024 End: 31-22-2466ntcd 1 tablet by mouth at bedtimeCephalexin 500 MG TABS Take 500 mg by mouth in the morning and at bedtime 02/22/2024 ActiveStart: 99-95-8307ckvm 1 capsule by mouth every twenty-four hoursKeflex 500 mg Cap 500 mg = 1 cap(s), Oral, q24hr, Take 1 pill the day before the procedure and 1 pill after the procedure., # 2 cap(s), Refills(s) 0, Pharmacy: [id number] Start Date: 05/12/22 Status: Ordered0.4 ml enoxaparin sodium 100 mg/ml prefilled syringe (1 source)Low Molecular Weight HeparinStart: 67-42-3659vigqyz 40 mg by subcutaneous injection once daily40 mg, SubCUTAneous, DAILY, First dose on Mon02/27/24 at 0900, Until Discontinued, Indication of Use: Prophylaxis-DVT/PE, Administer by deep subCUTAneous injection with pt lying down. Alternate injec tion sites on abdominal wall. Do not rub site after injection. Check with provider prior to any invasive procedure., On hold since [facility] 02/29/2024 at 1050 until manually unheldferrous sulfate 325 mg oral tablet (17 sources)Start: 86-48-1554dijb 1 tablet by mouth once daily at breakfast ferrous sulfate (IRON 325) 325 (65 Fe) MG tablet Take 1 tablet by mouth daily (with breakfast) 30 tablet 1 03/02/2024 ActiveStart: 95-76-5037xxafzss sulfate 325 (65 FE) mg tablet Take 1 tablet (325 mg total) by mouth. 03/02/2024 Active fludrocortisone acetate 0.1 mg oral tablet (3 sources)Start: 74-65-2829zpha 1 tablet by mouth twice dailyFludrocortisone 0.1 mg tablet Active 0.1 MG PO Twice daily November 12, 2024 10:46am Complies with drug therapyStart: 11-12-2024 End: 03-09-1044iyaz 1 tablet by mouth three times dailyFludrocortisone 0.1 mg tablet Discontinued 0.1 MG PO Three times daily November 12, 2024 10:22am November 12, 2024 10:49amStart: 11-12-2024 End: 34-23-8695lgig 1 tablet by mouth once dailyFludrocortisone 0.1 mg tablet Discontinued 0.3 MG PO Daily November 12, 2024 12:00am November 12, 2024 10:23am1.5 ml fremanezumab-vfrm 150 mg/ml auto-injector (4 sources)Start: 69-90-5888hpkvinjxkmpa-vfrm (AJOVY AUTOINJECTOR) 225 mg/1.5 mL Indications: Migraine without aura and withoutstatus migrainosus, not intractable Inject 1.5 mL (225 mg total) under the skin every 28 days. 1.5 mL 5 06/12/2024 Activegabapentin 600 mg oral tablet (7 sources)Anti-epileptic Agent End: 24-65-2764yclf 0.5 tablet by mouth twice dailygabapentin (NEURONTIN) 600 MG tablet Take 0.5 tablets by mouth 2 times daily. Activeketorolac tromethamine 10 mg oral tablet (7 sources)Nonsteroidal Anti-inflammatory Drug, Cyclooxygenase InhibitorStart: 03-02-2024 End: 72-25-6565qqwk 1 tablet by mouth every six hours as needed for pain ketorolac (TORADOL) 10 MG tablet Take 1 tablet by mouth every 6 hours as needed for Pain 10 tablet 03/02/2024 ActiveStart: 02-28-2024 End: 37-11-110936 mg, IntraVENous, EVERY 6 HOURS PRN, Starting on Mon02/28/24 at 0909, Until Mon03/04/24 at 0908,Pain Mild (1-3), Pain Moderate (4-6), Do not administer for more than 5 days.Start: 05-99-876577 mg, IntraVENous, ONCE, 1 dose, On Mon02/27/24 at 2100, Do not administer for more than 5 days.Start: 52-96-281164 mg, IntraVENous, ONCE, 1 dose, On Mon02/27/24 at 0400, Do not administer for more than 5 days.lamoTRIgine 25 mg oral tablet (3 sources)Mood Stabilizer, Anti-epileptic AgentStart: 11-12-2024 End: 77-66-3900sfld 1 tablet by mouth once dailyLamotrigine 25 mg tablet Active 25 MG PO Daily November 12, 2024 10:22am Complies with drug therapyStart: 03-15-2024 End: 44-13-7076pmilIBZbovf (LaMICtal) 25 mg tablet Take 1 tablet (25 mg total) by mouth. 03/15/2024 03/26/2024 Discontinued1 ml LORazepam 2 mg/ml injection (1 source)BenzodiazepineStart: mg, IntraVENous, EVERY 5 MIN PRN, Starting on Mon02/27/24 at 0032, Until Discontinued, Seizures,May repeat dose (4 mg) X 1 for seizures lasting more than 5 minutes. Notify provider if administered for seizure.24 hr nicotine 0.583 mg/hr transdermal system (5 sources)Cholinergic Nicotinic AgonistStart: 63-66-1641hryqs 1 dose transdermal route once dailynicotine (NICODERM CQ) 14 MG/24HR Place 1 patch onto the skin daily 30 patch 1 03/03/2024 ActiveStart: 03-03-2024 End: 92-10-3357skbtg 1 dose transdermal route every hournicotine (NICODERM CQ) 14 mg/[address] 1 patch on the skin. 03/03/2024 04/19/2024 DiscontinuedStart: 57-76-7497fhagz 1 dose transdermal route once daily at bedtime1 patch, TransDERmal, Administer over 24 Hours, DAILY, First dose on Mon02/27/24 at 0900, Apply new patch to nonhairy, clean, dry skin on the upper body or upper outer arm. Rotate patch sites. Notify pharmacy if patient or provider prefers patch to be removed at bedtime and replaced in the morning. Hazardous Medication -- Refer to facility policy for handling and disposal.ondansetron 4 mg disintegrating oral tablet (20 sources)Serotonin-3 Receptor AntagonistStart: 11-12-2024 End: 74-28-6087ymik 1 tablet by mouth once daily as neededOndansetron 4 mg tablet,disintegrating Active 4 MG PO Daily as needed November 12, 2024 10:22am Complies with drug therapyStart: 16-78-4174nggb 1 tablet by mouth every eight hours as needed for nauseaondansetron (ZOFRAN) 4 mg tablet Indications: Migraine without aura and without status migrainosus,not intractable Take 1 tablet (4 mg total) by mouth every 8 (eight) hours as needed for nausea or vomiting. 30 tablet 1 06/12/2024 ActiveStart: 03-08-2024 End: 62-86-2477gwpn 1 tablet by mouth twice daily as neededondansetron (ZOFRAN) 4 mg tablet Take 1 tablet (4 mg total) by mouth 2 (two) times a day as needed. 03/08/2024 06/12/2024 Discontinued (Reorder)Start: 01-31-2024 End: 65-47-0034fwte 1 tablet by mouth once dailyondansetron (ZOFRAN-ODT) 4 MG disintegrating tablet Take 1 tablet by mouth daily 01/31/2024 ActiveStart: 90-49-7268pkxl 1 tablet by mouth every six hours as needed for nauseaZofran 4 mg Tab 4 mg = 1 tab(s), Oral, q6hr, PRN Nausea/Vomiting, # 20 tab(s), Refills(s) 0, calledto pharmacy (Rx) Start Date: 07/21/22 Status: Orderedondansetron (ZOFRAN- ODT) disintegrating tablet 4 mg (1 source)Start: 50-97-8857jmkkqdedydj (ZOFRAN-ODT) disintegrating tablet 4 mg pantoprazole 20 mg delayed release oral tablet (14 sources)Proton Pump Inhibitortake 2 tablets by mouth once dailypantoprazole (PROTONIX) 20 MG tablet Take 2 tablets by mouth nightly Activepolyethylene glycol 3350 72346 mg powder for oral solution (4 sources)Osmotic LaxativeStart: 02-27-2024 End: 64-93-4340jqflexwooftd glycol (GLYCOLAX) 17 gram packet Take 17 g by mouth. 03/02/2024 05/03/2024 ActivepredniSONE 10 mg oral tablet (6 sources)Start: 04-02-2024 End: 36-94-6786nwbqhoMJWD (DELTASONE) 10 mg tablet Indications: Status migrainosus Take 4 tabs (40 mg) daily for 2days, then 3 tabs (30 mg) daily for 2 days, then 2 tabs (20 mg) daily for 2 days, then 1 tab daily for 1 day, then Discontinue 19 tablet 04/03/2024 Npgpfu94 hr propranolol hydrochloride 60 mg extended release oral capsule (9 sources)beta-Adrenergic BlockerStart: 38-87-0044qyft 1 capsule by mouth every twenty-four hours in the morningpropranolol LA (INDERAL LA) 60 mg 24 hr capsule Indications: Migraine without aura and without status migrainosus, not intractable Take 1 capsule (60 mg total) by mouth in the morning. 30 capsule 2 07/16/2024 ActiveStart: 04-19-2024 End: 34-16-5137dvlv 1 capsule by mouth every twenty-four hours in the morning propranolol LA (INDERAL LA) 60 mg 24 hr capsule Indications: Migraine without aura and without status migrainosus, not intractable Take 1 capsule (60 mg total) by mouth in the morning. 30 capsule 2 04/19/2024 07/15/2024 Discontinued (Reorder)rimegepant 75 mg disintegrating oral tablet (15 sources)Start: 85-71-8916Rquikptfzc (Nurtec Odt) 75 mg tablet,disintegrating Active 75 MG PO Every 48 hours as needed November 12, 2024 12:00am Complies with drug therapyStart: 02-24-3322gprgcqqahj (NURTEC ODT) 75 mg tablet,disintegrating Indications: Migraine without aura and without status migrainosus, not intractable Dissolve 1 tablet on tongue as needed (migraine). Maximum of 1 dose per 24 hours 8 tablet 5 03/26/2024 Activetamsulosin hydrochloride 0.4 mg oral capsule (1 source)alpha-Adrenergic BlockerStart: 62-39-1922kxaf 1 capsule by mouth once dailytamsulosin 0.4 mg Cap 0.4 mg = 1 cap(s), Oral, Daily, # 30 cap(s), Refills(s) 0, called to pharmacy(Rx) Start Date: 07/21/22 Status: Ordered divalproex sodium 500 mg delayed release oral tablet (1 source)Mood Stabilizer, Anti-epileptic AgentStart: 65-46-3280coun 1 dose by mouth twice mg, Oral, EVERY 12 HOURS SCHEDULED (2 times per day), First dose on Mon02/27/24 at 2100, UntilDiscontinued, Do not crush or break., On hold since Mon02/29/2024 at 0851 until manually unheld Completed/Discontinued Medications MedicationDrug Class(es)DatesSig (Normalized)Sig (Original)acetaminophen 325 mg / HYDROcodone bitartrate 5 mg oral tablet (8 sources)Opioid AgonistStart: 03-02-2024 End: 97-20-7060ssfm 1 tablet by mouth every six hours as needed for pain, then take 4 tablets by mouth once daily as needed for painHYDROcodone-acetaminophen (NORCO) 5-325 mg per tablet TAKE 1 TABLET BY MOUTH EVERY 6 HOURS NEEDED FOR PAIN (TAKE lowest dose possible to manage pain max DAILY amount FOUR TABLETS) 03/02/2024 04/19/2024 Discontinuedcyclobenzaprine hydrochloride 10 mg oral tablet (2 sources)Muscle RelaxantStart: 02-27-2024 End: 43-07-5471culc 1 dose by mouth once5 mg, Oral, ONCE, 1 dose, On Mon02/27/24 at 2100Start: 41-24-6899mwqfwzpbtevihvh Oral Start Date: 07/21/22 Status: Ordered2 ml fentaNYL 0.05 mg/ml injection (1 source)Opioid AgonistStart: 03-01-2024 End: 21-31-6399HYX, Starting on Mon03/01/24 at 0857, Until Mon03/01/24 at 0900, Intra-opfolic acid 5 mg/ml injectable solution (2 sources)Start: mg, IntraVENous, DAILY, First dose (after last modification) on Mon02/29/24 at 0900, Until DiscontinuedStart: 02-28-2024 End: 96-61-2967mckk 1 mg by mouth once daily1 mg, Oral, DAILY, First dose on Mon02/28/24 at 0900, Until Discontinuedgadoteridol (PROHANCE) injection 20 mL (1 source)Start: 02-28-2024 End: 42-57-0616lhdl 1 dose intravenously once20 mL, IntraVENous, IMG ONCE PRN, 1 dose, Starting on Mon02/28/24 at 1822, Until Mon02/28/24 at 1822, Cxxui181 ml magnesium sulfate 10 mg/ml injection (3 sources)Start: 02-29-2024 End: ,000 mg, IntraVENous, at 100 mL/hr, Administer over 1 Hours, ONCE, On Mon03/01/24 at 1200, For 1 dose, Recommended infusion rate not to exceed 1,000 mg (milligrams) per hour.Start: ,000 mg, IntraVENous, at 25 mL/hr, Administer over 2 Hours, PRN, Other, Magnesium Replacement, Starting on Mon02/27/24 at 0032, Mag Lab Replacement Action 1.4-1.6 mg/dL 2,000 mg Total Dose Given as1,000 mg IVPB x 2 doses or 2,000 [...] CrCl less than 30ml/min, On hold since [facility] 02/29/2024 at 1438 until manually unheldmethocarbamol 750 mg oral tablet (6 sources)Muscle RelaxantStart: 02-12-2024 End: 47-34-0823qqrm 1 tablet by mouth every six hours as neededmethocarbamoL (ROBAXIN) 750 mg tablet Take 1 tablet (750 mg total) by mouth every 6 (six) hours as needed. 02/12/2024 04/19/2024 Discontinued End: 51-84-3567enwg 1 tablet by mouth twice dailymethocarbamol (ROBAXIN) 750 MG tablet Take 1 tablet by mouth 2 times daily 03/02/2024 Discontinued (Stop Taking at Discharge)2 ml midazolam 1 mg/ml injection (1 source)BenzodiazepineStart: 03-01-2024 End: 12-16-9267FQJ, Starting on Mon03/01/24 at 0857, Until Mon03/01/24 at 0900, Intra-opphenol 14 mg/ml mucosal spray (1 source)Start: 11-67-7862Avjkk/Throat, 4 TIMES DAILY PRN, Starting on 03/02/24 at 0930, Until Discontinued, Painpotassium chloride 10 meq extended release oral tablet (2 sources)Start: 11-12-2024 End: 69-38-6880aegm 1 tablet by mouth twice dailyPotassium Chloride 10 mEq tablet extended release Discontinued 10 MEQ PO Twice daily November 12, 2024 12:00am November 12, 2024 10:22amStart: 24-44-5545alkhfluqy chloride (KLOR-CON M) extended release tablet 40 mEqrizatriptan 10 mg oral tablet (1 source)Serotonin-1b and Serotonin-1d Receptor Agonist End: 05-57-2221kstooputdgo (MAXALT) 10 mg tablet Take 1 tablet (10 mg total) by mouth once as needed for migraine.May repeat in 2 hours if unresolved. Do not exceed 30 mg in 24 hours. 03/26/2024 Discontinued5 ml sodium chloride 9 mg/ml injection (3 sources)Start: 88-43-082690 mL, IntraVENous, EVERY 12 HOURS SCHEDULED (2 times per day), First dose on Mon02/27/24 at 0900,Until DiscontinuedStart: 21-41-8618KmsxfNBBqvy, at 5-250 mL/hr, PRN, if patient receiving piggyback infusions and maintenance fluids are not ordered, Starting on Mon02/27/24 at 0032, For piggyback infusion, administer at same rate aspiggyback for a total of 25 mL. Enter 25 mL into dose field and piggyback rate into rate field of order. If piggyback is infusing at a rate less than 100 mL/hr, enter 25 mL into dose field and 100 mL/hr into rate field of order.Start: 52-58-7399pnup 10 mL intravenously once as bkkhej19 mL, IntraVENous, PRN, Starting on Mon02/27/24 at 0032, Until Discontinued, Line Care, After every IV line usetiZANidine 4 mg oral tablet (2 sources)Central alpha-2 Adrenergic AgonistStart: 02-01-2024 End: 05-84-8495ybAJVgsngm (ZANAFLEX) 4 mg tablet Take 2 tablets (8 mg total) by mouth. 02/01/2024 04/19/2024 Discontinuedtopiramate 50 mg oral tablet (7 sources)Start: 03-26-2024 End: 76-12-9625uehodmigkg (TOPAMAX) 50 mg tablet Indications: Migraine without aura and without status migrainosus, not intractable , Status migrainosus Take 1 tablet (50 mg) nightly for 2 weeks, then increase to 1tablet (50 mg) twice daily 60 tablet 5 03/26/2024 04/19/2024 Discontinuedvalproate (DEPACON) 1,500 mg in sodium chloride 0.9 % 100 mL IVPB (1 source)Start: 02-27-2024 End: ,500 mg, IntraVENous, at 100 mL/hr, Administer over 60 Minutes, ONCE, On Mon02/27/24 at 1230, For1 dose Problems Active Problems Problem ClassificationProblemDateDocumented DateEpisodic/ChronicAbdominal pain (8 sources)Unspecified abdominal pain; Translations: [Right lower quadrant pain] Onset: 00-58-2835HhwqbtirIbxxl and unspecified renal failure (1 source)Acute kidney failure, unspecified; Translations: [ACUTE KIDNEY FAILURE UNSPECIFIED]Onset: 54-00-8413SfoxdkqlBlpevpzgqt and other anemia (18 sources)Pancytopenia; Translations: [Other pancytopenia]Onset: 02-28-2024 70-21-1870QdulvuaQhaghbskni and other anemia (2 sources)Other pancytopenia; Translations: [Other pancytopenia]Onset: 21-45-0149UtylfymZghnowrs of white blood cells (1 source)Elevated white blood cell count, unspecified; Translations: [ELEVATED WHITE BLOOD CELL COUNT UNS]Onset: 86-52-7918UrmgrytMdjupefy; convulsions (20 sources)Seizure; Translations: [Unspecified convulsions]Onset: 02-26-2024 92-94-6050NwupgrbdRcxzp and electrolyte disorders (3 sources)Dehydration; Translations: [Hypokalemia]Onset: EpisodicHeadache; including migraine (11 sources)Migraine without aura, not intractable, without status migrainosus; Translations: [Migraine, unspecified, not intractable, with status migrainosus] Onset: 756577-11-6268NgyekqoJhpdukpt; including migraine (2 sources)Headache; including migraine; Translations: [Headache, unspecified] Onset: 55-36-9503Anuvkzpyrhohc mental health disorders (20 sources)Multiple personality disorder; 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]Onset: 284869-19-2563EfdogqfAuvidhxtwyg chest pain (1 source)Other chest pain; Translations: [OTHER CHEST PAIN]Onset: 07-22-2022 EpisodicOther connective tissue disease (2 sources)Neurological kleyqhl45-16-9294ViuystsqPseey diseases of kidney and ureters (1 source)Hydronephrosis with renal and ureteral calculous obstruction; Translations: [HYDRONPHROS RENL AND URETRL CALCUL OBST]Onset: 60-53-8574Lqgmxzbo Other gastrointestinal disorders (2 sources)Irritable bowel syndrome without diarrhea; Translations: [IRRITABLE BOWEL SYND W/O DIARRHEA]Onset: 98-82-4759NtwgdrhTdrhc lower respiratory disease (1 source)Shortness of breath; Translations: [SHORTNESS OF BREATH]Onset: 85-83-6194FeovmyovJzadw nervous system disorders (1 source)Tremor, unspecified; Translations: [Tremor, unspecified]Onset: 36-56-1272HmqjsbcqTuuza nervous system disorders (3 sources)Psychosomatic musculoskeletal symptoms; Translations: [Tremor, unspecified]19-45-0245UbehoegxTylvq non-traumatic joint disorders (1 source)Hip pain; Translations: [Pain in unspecified hip]88-89-4042Iyhyduez Other non-traumatic joint disorders (1 source)Pain in unspecified hip; Translations: [Pain in unspecified hip]Onset: 80-02-0855OtewtqzjJrqjc screening for suspected conditions (not mental disorders or infectious disease) (2 sources)Serum creatinine raised; Translations: [Other specified abnormal findings of blood chemistry]70-94-4372VynjnpptQxfis upper respiratory infections (4 sources)Acute pharyngitis, unspecified; Translations: [ACUTE PHARYNGITIS UNSPECIFIED]Onset: 30-59-5987JgbieuieAxoxlenect disorders (not diabetes) (1 source)Acute pancreatitis without necrosis or infection, unspecified; Translations: [ACUTE PANCREATITIS WONECRS/INF UNS]Onset: 13-45-0849Lbmwbxgc Residual codes; unclassified (1 source)Altered mental status, unspecified; Translations: [Altered mental status, unspecified]Onset: 81-12-4784HqpqsmlqMxqeawlexma; intervertebral disc disorders; other back problems (1 source)Other dorsalgia; Translations: [OTHER DORSALGIA]Onset: 07-22-2022 EpisodicSubstance-related disorders (2 sources)Nicotine dependence, cigarettes, uncomplicated; Translations: [Cannabis abuse, uncomplicated]Onset: 95-36-7096VctsswmXhwoziv (12 sources)Syncope symptom; Translations: [Syncope and collapse]Onset: 915286-76-2681WyvaitpyIxdsursmdvev (1 source)CONTACT W/AND (SUSP) EXPOS COVID-19; Translations: [CONTACT W/AND (SUSP) EXPOS COVID-19]Onset: 13-88-4578Hdkficstnrgj (1 source)New PatientOnset: 68-53-7574Xbdos infection (2 sources)Herpes tiyydki13-15-6727Hkeisobt Past or Other Problems Problem ClassificationProblemDateDocumented DateEpisodic/ChronicCalculus of urinary tract (20 sources)Ureteric stone; Translations: [Calculus of ureter]Onset: 07-06-2022 EpisodicMood disorders (14 sources)Mood disordersOnset: 075497-19-9402Opyzavqomkaufx (13 sources)Arthritis; Translations: [Unspecified osteoarthritis, unspecified site]Onset: 04-05-2024 Resolved: [id number] Results Test NameValueInterpretationReference RangeFacilityTilt tableOrdered By: Gilberto Arciniega on 19-72-1619SQ (Initial Tilt)159/98mmHgBon [employer] Work Phone: BP (Max BP)159/98mmHgBon [employer] Work Phone: BP (Max Heart Rate)157/96mmHgBon [employer] Work Phone: BP (Min BP)134/91mmHgBon [employer] Work Phone: BP (Min Heart Rate)147/91mmHgBon [employer] Phone: BP (Supine)164/92bpmBon [employer] Work Phone: Heart rate70 /minbpmBon [employer] Work Phone: Heart rate90 /minbpmBon [employer] Work Phone: Heart rate80 /minbpmBon [employer] Work Phone: Minutes (Max BP)1Bon [employer] Work Phone: Minutes (Max Heart Rate)2Bon [employer] Work Phone: Minutes (Min BP)4Bon [employer] Work Phone: Minutes (Min Heart Rate)3Bon [employer] Work Phone: Rhythm (Initial Tilt)SRRoberto Neo PLM Work Phone: Rhythm (Max BP)SRRoberto [employer] Work Phone: Rhythm (Max Heart Rate)Luna [employer] Work Phone: Rhythm (Min BP)SRRoberto [employer] Work Phone: Rhythm (Min Heart Rate)Luna [employer] Work Phone: Rhythm (Supine)SRRoberto [employer] Phone: Bon [employer] Work Phone: Tilt tableon 29-68-4576Caydu Conclusions: Inconclusive head upright tilt table test [...] minute of the study for a maximum of30 minutes. During the initial 20 minutes of [...] with their primary care physician and/ or transit mechanic as previously scheduled.[facility] CV [facility] STRESSRadiology Study observation (narrative)[facility] Neo PLMVital signsOrdered By: Gilberto Arciniega on 89-30-8864Meiwf rate74 /minbpmBon [employer] Work Phone: Ambulatory Visit Summaryon 87-22-7462Okvhjugqzn Visit SummaryAmbulatory Visit Summary ETHAN DONALD :1990 Visit Date:09/04/2024 Ambulatory Visit Instructions Your Care Team Attending Physician - Maureen GIRON MD Primary Care Physician - Latricia Garcia MD [...] 1.5 mL subcutaneous solution) 225 Milligram Subcutaneous Oncea month Contact prescribing physician if questions or [...] you for choosing us for your care. [facility] HamiltonAmb[facility] EEGon 06-05-2024 Images from the original result [...] seen (more content not included)... MANUALLY TRANSCRIBED RESULTSAmbulatory EEGOrdered By: Julian Collado on 06-05-2024 [employer] Work Phone: BASIC METABOLIC PANLon 41-99-9724Frasg gap [Moles/Vol] 7 mmol/LNormal5-15[facility] Mercy HospitalComment on above:Performed By: #### WON ELENA, 78758-2, 24435-1 #### [facility] ([id number]) [address] [place] [address], [place], [place] [address]Ebvbrxn [Mass/Vol]9.2 mg/dLNormal8.5-10.5[facility] Mercy HospitalComment on above:Performed By: #### WON ELENA, , 96536-9 #### [facility] ([id number]) [address] [place] [address], [place] [address]Hdpkcgdu [Moles/Vol]107 mmol/EKzxafh45-306PaiCkgrmgGood Samaritan HospitalComment on above:Performed By: #### WON ELENA, , 01921-9 #### [facility] ([id number]) [address] [place] [address] 77276YU8 [Moles/Vol]23 mmol/HVxhmfh28-64YmjYvzpslParma Community General [facility] Comment on above:Performed By: #### WON ELENA, , 37568-8 #### [facility] ([id number]) [address] [place] [address] 09671Cvutejphzi [Mass/Vol]1.20 mg/dLNormal0.70-1.20[facility] HospitalComment on above:Result Comment: METHOD TRACEABLE TO IDMS STANDARD Performed By: #### WON ELENA, , 18206-4 #### [facility] ([id number]) [address] [place] [address], [place] [address]HCL/1.73 sq M.predicted among non-blacks MDRD (S/P/Bld) [Vol rate/Area]83 mL/min/{1.73_m2}Normal>59ProFalls Community Hospital And ClinicComment on above:Result Comment: Reported eGFR is based on the CKD-EPI 2020 equation that does not use a race coefficient.Performed By: #### WON ELENA, , 10094-0 #### [facility] ([id number]) [address] [place] [address], [place] [address]Emtkfvu [Mass/Vol]95 mg/pFUjuffo97-12IsqMgnqxqGood Samaritan Hospital Comment on above:Performed By: #### KASSY, WON, , 50025-3 #### [facility] ([id number]) [address] [place] [address] 47931Njlawxzvi [Moles/Vol]3.7 mmol/LNormal3.5-5.0ProFalls Community Hospital And ClinicComment on above:Performed By: #### WON ELENA, , 97002-4 #### [facility] ([id number]) [address] [place] [address] 30174Nbiver [Moles/Vol]137 mmol/EBusnqv902-207EozHefrye [facility]ont HospitalComment on above:Performed By: #### WON ELENA, , 28410-5 #### [facility] ([id number]) [address] [place] [address] 00724Fhou nitrogen [Mass/Vol]18 mg/dLNormal5-23ProFalls Community Hospital And ClinicComment on above:Performed By: #### WON ELENA, , 40174-1 #### [facility] ([id number]) [address] [place] [address] 23083SCQ AND AUTO DIFFon 53-95-0193NBCASKGP BASOPHIL0.1 X10E9/L Normal0.0-0.2ProMedSeneca HospitalComment on above:Performed By: #### WON ELENA, , 71020-5 #### [facility] ([id number]) [address] [place] [address] 76408FPTJWJEF NEUTROPHIL3.6 X10E9/LNormal1.5-6.6ProFalls Community Hospital And ClinicComment on above:Performed By: #### WON ELENA, , 68832-4 #### [facility] ([id number]) [address] [place] [address] 63148Xtefbtdlz/100 WBC (Bld)0.8 %NormalProFalls Community Hospital And Clinic Comment on above:Performed By: #### WON ELENA, , 27226-6 #### [facility] ([id number]) [address] [place] [address] 97883Yvbbdgytdtl (Bld) [#/Vol]0.2 10*3/uLNormal0.0-0.4ProFalls Community Hospital And ClinicComment on above:Performed By: #### WON ELENA, , 08674-3 #### [facility] ([id number]) [address] [place] [address] 21557Xnlbgyotlps/100 WBC (Bld)2.3 %NormalProFalls Community Hospital And Clinic Comment on above:Performed By: #### WON ELENA, , 27267-3 #### [facility] ([id number]) [address] [place] [address] 43314Lwziwlfngvk distribution width (RBC) [Ratio]14.5 %Normal 11.5-15.0ProFalls Community Hospital And ClinicComment on above:Performed By: #### WON ELENA, , 44055-5 #### [facility] ([id number]) [address] [place] [address] 80729Wyqgonqpoz (Bld) [Volume fraction]40.8 %Utfrol15-06ObmIhqaskFalls Community Hospital And ClinicComment on above:Performed By: #### WON ELENA, , 46869-8 #### [facility] ([id number]) [address] [place] [address] 58855Wveeoklrns (Bld) [Mass/Vol]14.0 g/lFIglhnb14.0-17.0ProFalls Community Hospital And ClinicComment on above:Performed By: #### WON ELENA, , 86865-0 #### [facility] ([id number]) [address] [place] [address] 13570Iaasavwppxw (Bld) [#/Vol]2.3 10*3/uLNormal1.0-3.5ProMedSeneca HospitalComment on above:Performed By: #### WON ELENA, , 82963-3 #### [facility] ([id number]) [address] [place] [address] 31164Duornslvins/100 WBC (Bld)35.0 %NormalProFalls Community Hospital And Clinic Comment on above:Performed By: #### KASSY, WON, , 36413-1 #### [facility] ([id number]) [address] [place] [address] 40729GXO (RBC) [Entitic mass]31.2 ebHxchac67-00WpcUxqbjxFalls Community Hospital And ClinicComment on above:Performed By: #### WON ELENA, , 25495-0 #### [facility] ([id number]) [address] [place] [address] 60007WBBU (RBC) [Mass/Vol]34.2 g/hOMrjujj77-67KycGwiulhFalls Community Hospital And ClinicComment on above:Performed By: #### KASSY, WON, , 69376-3 #### [facility] ([id number]) [address] [place] [address] 89140AWZ (RBC) [Entitic vol]91 fBYziimy80-837LbbNwhndx [facility]ont HospitalComment on above:Performed By: #### KASSY, WON, , 62908-0 #### [facility] ([id number]) [address] [place] [address] 57366Ininlpcui (Bld) [#/Vol]0.5 10*3/uLNormal0-0.9[facility] Samaritan HospitalComment on above:Performed By: #### KASSY, WON, , 34466-9 #### [facility] ([id number]) [address] [place] [address] 45996Wpsbuchdn/100 WBC (Bld)7.3 %NormalGood Samaritan Hospital Comment on above:Performed By: #### CBCJustus, BMP, , 18198-3 #### [facility] ([id number]) [address] [place] [address] 07375Drodctwqfno/100 WBC (Bld)54.6 %[facility] Comment on above:Performed By: #### KASSY, BMP, , 88530-8 #### [facility] ([id number]) [address] [place] [address] 19419Yvqlygpw mean volume (Bld) [Entitic vol]7.3 fLNormal7-12 [facility]itan HospitalComment on above:Performed By: #### KASSY, BMP, , 49301-0 #### [facility] ([id number]) [address] [place] [address] 69115Zmmdeolib (Bld) [#/Vol]245 10*3/jZYzodyr474-363SemQdhjxwGood Samaritan HospitalComment on above:Performed By: #### KASSY, WON, , 07071-7 #### [facility] ([id number]) [address] [place] [address] 32241SGU COUNT4.48 X10E12/LNormal4.10-5.70[facility] Comment on above:Performed By: #### CBCA, BMP, , 73794-9 #### [facility] ([id number]) [address] [place] [address] 00010ZAG (Bld) [#/Vol]6.6 10*3/uLNormal4.0-11.0ProMedica Upland HospitalComment on above:Performed By: #### WON LEENA, 06228-5, 57550-5 #### [facility] ([id number]) [address] [place] [address] 37796PNLVGQTAFri 66-19-1398Tqlsztttt [Mass/Vol]2.1 mg/dLNormal 1.8-2.6ProBluffton Hospitalca [facility] Mercy HospitalComment on above:Performed By: #### WON ELENA, 13209-8, 06503-2 #### [facility] ([id number]) [address] [place] [address] 74793Mzhtjwwz I.cardiac High sensitivity method [Mass/Vol]on HOUR TROP I, HIGH SENSITIVITY2 ng/LNormal<21ProSelect Medical [facility] Dublin HospitalComment on above:Performed By: #### 62194-3 #### [facility] ([id number]) [address] [place] [address] 99365IUXIKECL I, HIGH SENSITIVITY3 ng/LNormal<21ProFalls Community Hospital And ClinicComment on above:Performed By: #### WON ELENA, 36305-8, 55006-6 #### [facility] ([id number]) [address] [place] [address] 83905WHFGCRDRQJ QUAL BCR-ABL1 ASSAY W/ REFLEXon 16-72-0238JBUWIQSXSN QUAL BCR-ABL1 ASSAY, RESULTNot detectedNormalSGraham Regional Medical CenterComment on above:Result Comment: There is no evidence of major (p210, e13a2, [...] is also amplified for specimen quality assurance analyst and to ensure the integrity of RNA. [...] Transcripts Analytical Sensitivity Minor (e1a2) NCN = 0.32580 Major (e13a2) %IS = 0.0040 Major (e14a2) [...] developed and its performance characteristics determined by [facility]. It has not been cleared or approved by the U.S. Food and Drug Administration. This test was performed in a CLIA-certified laboratory and is intended for clinical purposes. Performed By: [facility] [address] [place] [address] Director Safety Council: Sunny Roman MD, PhD CLIA Number: [id number] By: #### DQBC2 #### [facility] [address] [facility] 12334HRMHMFFBEU QUAL BCR-ABL1 ASSAY, SOURCENot Providence [facility] Memorial HospitalComment on above:Result Comment: AMENDED on 03/12/24: Result in error was LAV Whole Blood, verified at 09:43 on 03/01/24.Performed By: #### DQBC2 #### [facility] [address] [facility] 488[address]XNPQARVLGA ANAL. BONE MARROWon 26-24-5424TBOXOOBQPE ANAL. BONE MARROWSEE [facility] County HospitalComment on above:Result Comment: Chromosome Analysis, Bone Marrow See Note Normal Test [...] analysis was performed at the following location(s): [facility] INTERPRETIVE INFORMATION: Chromosome Analysis, Bone Marrow This test was developed and its performance characteristics determined by [facility]. It has not been cleared or approved by the US Food and Drug Administration. This test was performed in a CLIA certified laboratory and is intended for clinical purposes. EER Chromosome Analysis Bone Marrow See Note Authorized individuals can access the [facility] Enhanced Report using the following link: [email or web address] Performed By: [facility] [address] [place] [address] Director Safety Council: Sunny Roman MD, PhD CLIA Number: [id number] By: #### MMMP, LPBM2, CRBM2 #### [facility] [address] [address]MYELOID MALIGANCIES MUTATION PANEL BY [facility] 95-24-7229IDK MYELOID MALIGNANCIES PANEL BY [facility] Comment on above:Result Comment: Authorized individuals can access the [facility] Enhanced Report using the following link: [email or web address] Performed By: [facility] [address] [place] [address] Director Safety Council: Sunny Roman MD, PhD CLIA Number: [id number] By: #### MMMP, LPBM2, CRBM2 #### [facility] [address] [address]MYELOID MALIGNANCIES PANEL INTERee Heart Hospital of AustinComment on above:Result Comment: Myeloid Malignancies Mutation Panel NGS Submitted diagnosis or diagnosis under consideration for variant interpretation: Pancytopenia TIER 1: Variants of Known Clinical Significance in Hematologic Malignancies None found TIER 2: Variants of Unknown Clinical Significance in Hematologic Malignancies 1. NSD1 c.7576C>T, p.Sbc0987Wrt (NM_[id number]) VAF: 49.0% This variant has not been reported in hematologic malignancies, to the best of our knowledge. 2. KMT2A c.5573G>A, p.Urw9486Bkx (NM_[id number]) VAF: 47.8% This variant has not been reported in hematologic malignancies, to the best of our knowledge. This result has been reviewed and approved by Zulay Abdi M.D. Low coverage regions: Listed below are regions where the average sequencing depth (number of times a particular nucleotide is sequenced) in at least 20% of the eumhno-qn-hdpsyryq is less than our stringent cutoff of [...] NOTCH1; NPM1*; NRAS; NSD1; PHF6; PIGA; PPM1D; GTMM26K; PRPF8; PTPN11; RAD21; RUNX1; SAMD9; SAMD9L; SETBP1; [...] other relevant data an (more content not included)...Performed By: #### MMMP, LPBM2, CRBM2 #### [facility] [address] [facility] [address]YSMRPXL MALIGNANCIES PANEL SPECIMENBone MarrowNoBrownfield Regional Medical CenterComment on above:Performed By: #### MMMP, LPBM2, CRBM2 #### [facility] [address] [facility] [address]TTRAVXP MALIGNANCY PROPOSED DIAGNOSISPancytopeniaNormUniversity HospitalComment on above:Performed By: #### MMMP, LPBM2, CRBM2 #### [facility] [address] [facility] [address]BTCKZFLB/LYMPHOMA PHENO BLOODon 64-17-5959FZIEBRCN/LYMPHOMA PHENO BLOODSEE BELOWHendrick Medical CenterComment on above:Result Comment: Leuk/Lymph Phenotype, Source Blood Number Of Markers 26 [...] loss of CD16 without any other abnormality) Seaboard:Lambda Ratio: approx. 2:1 CD4:CD8 Ratio: approx. 8:1 Viability: 58% Markers run: HLA-DR, Seaboard, Lambda, CD2, CD3, CD4, CD5, CD7, CD8, CD10, CD11b, CD13, CD14, CD16, CD19, CD20, CD23, CD33, CD34, CD38, CD45, CD56, CD57, CD64, CD117, CD200 Num of Markers Run: 26 This result has been reviewed and approved by Kostas Miller M.D., Ph.D. 03/05/2024 INTERPRETIVE INFORMATION: Leuk/Lymph Phenotyping, Flow Cytometry This test was developed and its performance characteristics determined by [facility]. It has not been cleared or approved by the US Food and Drug Administration. This test was performed in a CLIA certified laboratory and is intended for clinical purposes. Performed By: [facility] [address] [place] [address] Director Safety Council: Sunny Romna MD, PhD CLIA Number: [id number] By: #### CRP, [facility] #### [facility] [address] [address]IPNNBKBS/LYMPHOMA PHENO BONE MARROWon 87-18-0281JDZEGSGR/LYMPHOMA PHENO BONE MARROWSEE BELOWHendrick Medical CenterComment on above: Result Comment: Leuk/Lymph Phenotype, Source Bone Marrow Number Of Markers [...] Viability: 82% Markers run: cKappa, cLambda, HLA-DR, Seaboard, Lambda, CD2, CD3, CD4, CD5, CD7, CD8, CD10, CD11b, CD13, CD14, CD16, CD19, CD20, CD23, CD33, CD34, CD38, CD45, CD56, CD57, CD64, CD117, CD138, CD200 Num of Markers Run: 29 This result has been reviewed and approved by Kostas Miller M.D., Ph.D. 03/03/2024 INTERPRETIVE INFORMATION: Leuk/Lymph Phenotyping, Flow Cytometry This test was developed and its performance characteristics determined by [facility]. It has not been cleared or approved by the US Food and Drug Administration. This test was performed in a CLIA certified laboratory and is intended for clinical purposes. Performed By: [facility] [address] [place] [address] Director Safety Council: Sunny Roman MD, PhD [facility] Number: [id number] By: #### MMMP, LPBM2, CRBM2 #### [facility] [address] [facility] [address]LJDMA GAPon 87-19-4676Ghywi gap [Moles/Vol]9.0 mmol/LNormal8.0-16.0 [facility] Medical CenterComment on above:Result Comment: ANION GAP = Sodium - (Chloride + CO2)Performed By: #### DHRUV, WSR #### [facility] [address] [place], [place] [address]Ntzql Gapon 91-89-3519Jopun gap [Moles/Vol]9.0 mmol/L8.0 - 16.0 meq/LBon Select [facility] Hospital - TrumbullComment on above:ANION GAP = Sodium -(Chloride + CO2) Performed at [facility] [address] [place] [address] BASIC METABOL PANELon 95-33-0772Otfcuhh [Mass/Vol]8.4 mg/dLLow8.5-10.5SGraham Regional Medical CenterComment on above:Performed By: #### DHRUV, WSR #### [facility] [address] [place] [address] 85357Wkyvtrxe [Moles/Vol]100 mmol/KMgdxpc27-082IxsxoEnnis Regional Medical CenterComment on above:Performed By: #### DHRUV, WSR #### [facility] [address] [place] [address] 07209EA4 [Moles/Vol]29 mmol/IAgqroi58-05HmtmhEnnis Regional Medical Center Comment on above:Performed By: #### DHRUV, WSR #### [facility] [address] [place] [address] 80730Clrpjcwqoh [Mass/Vol]0.9 mg/dLNormal0.4-1.2SGraham Regional Medical CenterComment on above:Performed By: #### DHRUV, WSR #### [facility] [address] [place] [address] 19801Jmqrmwx [Mass/Vol]103 mg/iZGlfjym17-127PpylwEnnis Regional Medical Center Comment on above:Performed By: #### CRP, WSR #### [facility] [address] [place], [place] [address]Qynowfvha [Moles/Vol]3.7 mmol/LNormal3.5-5.2Saint [facility] Medical CenterComment on above:Performed By: #### CRP, WSR #### [facility] [address] [place], [place] [address]Xpjshk [Moles/Vol]138 mmol/IOpttyu203-595SkkzcEnnis Regional Medical CenterComment on above:Performed By: #### CRP, WSR #### [facility] [address] [place] [address] 11191Kgls nitrogen [Mass/Vol]10 mg/dLNormal7-22En[facility] Regional Medical CenterComment on above:Performed By: #### CRP, WSR #### [facility] [address] [place] [address] 629[address]Xypml metabolic 2000 panelon 38-14-1250Pflfypj [Mass/Vol]8.4 mg/dL Low8.5 - 10.5 mg/dLBon [facility] - TrumbullComment on above:Performed at [facility] [address] [place] [address] 76694Fzywwpoe [Moles/Vol]100 mmol/L 98 - 111 meq/LBon [facility] - TrumbullCO2 [Moles/Vol]29 mmol/L23 - 33 meq/LBon [facility] TrumbullCreatinine [Mass/Vol]0.9 mg/dL0.4 - 1.2 mg/dLBon [facility] - TrumbullGlucose [Mass/Vol]103 mg/dL70 - 108 mg/dLBon [facility] Interpretation and review of laboratory resultsAbnormalBon SecSt. Mary[facility] Potassium [Moles/Vol]3.7 mmol/L3.5 - 5.2 meq/LBon SecSt. Mary's Medical CenterSodium [Moles/Vol]138 mmol/L135 - 145 meq/LBon SecSt. Mary's Medical CenterUrea nitrogen [Mass/Vol]10 mg/dL7 - 22 mg/dLBon [facility] TrumbullCBC WITH DIFFERENTIALon 42-32-2200WBZMRJBL LYMPHOCC.NormalEnnis Regional Medical CenterComment on above: Performed By: #### CBCWD, SCAN1 #### [facility] [address] [place] [address] 19813KGPWWTDD ESTIMATESL DECREASEDNormalAdequateSGraham Regional Medical CenterComment on above:Performed By: #### BUSTER, SCAN1 #### [facility] [address] [place] [address] 82415HJZYQE CELLSPresentNormalAbsentSGraham Regional Medical CenterComment on above:Performed By: #### BUSTER, SCAN1 #### [facility] [address] [place] [address] 970[address]CKA BASOPHILS0.0 thou/wb5Fivdmn9.0-0.1SGraham Regional Medical Center Comment on above:Performed By: #### BUSTER, SCAN1 #### [facility] [address] [place] [address] 48392YDC EOSINOPHILS0.0 thou/ki8Myyawf2.0-0.4SGraham Regional Medical CenterComment on above:Performed By: #### BUSTER, SCAN1 #### [address] [address]HOY IMMATURE GRANS (IG)0.08 thou/wj6Unuv0.00-0.07En[facility] Regional Medical CenterComment on above:Performed By: #### BUSTER, SCAN1 #### [address] [address]WPL LYMPHOCYTES0.7 thou/dz2Ifx2.0-4.8[facility] Comment on above:Performed By: #### BUSTER, SCAN1 #### [address] [address]LBQ MONOCYTES0.1 thou/fz1Vru3.4-1.3SGraham Regional Medical Center Comment on above:Performed By: #### BUSTER, SCAN1 #### [facility] [address] [place] [address] 94189TFD NEUTROPHILS0.9 thou/sg9Kad4.8-7.7[facility] Comment on above:Performed By: #### BUSTER, SCAN1 #### [facility] [address] [place] [address] 24204Stztigcvj/100 WBC (Bld)0.5 %NormalYale New Haven Psychiatric Hospitala's Medical Center Comment on above:Performed By: #### BUSTER, SCAN1 #### [address] [address]Wxcwrcmgchp/100 WBC (Bld)2.6 %[facility] Comment on above:Performed By: #### BUSTER, SCAN1 #### [address] [address]Wtqkuryoqzk distribution width (RBC) [Ratio]12.1 %Qhcrkn81.5-14.5 [facility] Medical CenterComment on above:Performed By: #### BUSTER, SCAN1 #### [address] [address]Pbcoqaggdw (Bld) [Volume fraction]33.8 %Low42.0-52.0En[facility] Regional Medical CenterComment on above:Performed By: #### BUSTER, SCAN1 #### [address] [address]Dwqgzlkddy (Bld) [Mass/Vol]11.6 g/dLLow14.0-18.0[facility] Medical CenterComment on above:Performed By: #### BUSTRE, SCAN1 #### [address] [address]JOENZDPT GRANS (IG)4.2 %[facility]rick Medical CenterComment on above:Performed By: #### BUSTER, SCAN1 #### [address] [address]Jdphqggraql/100 WBC (Bld)37.0 %[facility] Comment on above:Performed By: #### BUSTER, SCAN1 #### [address] [address]IFH (RBC) [Entitic mass]30.9 zbVvtsqd15.0-33.0[facility] Medical CenterComment on above:Performed By: #### BUSTER, SCAN1 #### [address] [address]AHUB (RBC) [Mass/Vol]34.3 g/lGOcpuad71.2-35.5SGraham Regional Medical CenterComment on above:Performed By: #### BUSTER, SCAN1 #### [address] [address]PWC (RBC) [Entitic vol]90.1 lXOdxfmv43.0-94.0[facility] Medical CenterComment on above:Performed By: #### BUSTER, SCAN1 #### [address] [address]Ydayklbxc/100 WBC (Bld)7.8 %[facility] Comment on above:Performed By: #### BUSTER, SCAN1 #### [address] [address]Wrzelqhqgna/100 WBC (Bld)47.9 %[facility] Comment on above:Performed By: #### BUSTER, SCAN1 #### [address] [address]OOCO9 /100 wbcNormalSGraham Regional Medical CenterComment on above: Performed By: #### BUSTER, SCAN1 #### [address] [address]EHNBICSB683 thou/fq5Ucx901-583EurohEnnis Regional Medical CenterComment on above:Performed By: #### BUSTER, SCAN1 #### [address] [address]Wqcmhtsi mean volume (Bld) [Entitic vol]11.4 fLNormal9.4-12.4SGraham Regional Medical CenterComment on above:Performed By: #### BUSTER, SCAN1 #### [address] [address]UQT2.75 mill/dc0Ghb1.70-6.10[facility] Regional Medical CenterComment on above:Performed By: #### BUSTER, SCAN1 #### [address] [address]TED-HT61.8 fIZrbjwv58.0-45.0[facility] Regional Medical CenterComment on above:Performed By: #### BUSTER, SCAN1 #### [facility] [address] [place], [place] [address]KKV8.9 thou/yt9Cnf5.8-10.8SaUniversity Medical Center of El PasoComment on above:Performed By: #### BUSTER, SCAN1 #### [facility] [address] [place], [place] [address]QCF with Auto Differentialon 03-05-4184Trikpmprq (Bld) [#/Vol]0.0 10*3/uLBon Secours Mercy HealthBasophils/100 WBC (Bld)0.5 %[facility] HealthEosinophils Absolute0.0[facility] HealthEosinophils/100 WBC (Bld) 2.6 %[facility] HealthErythrocyte distribution width (RBC) [Entitic vol] 40.8 fL35.0 - 45.0 fLBon Secours Mercy HealthErythrocyte distribution width (RBC) [Ratio]12.1 %11.5 - 14.5 %[facility] Mercy HealthHematocrit (Bld) [Volume fraction]33.8 %Low42.0 - 52.0 %[facility] HealthHemoglobin (Bld) [Mass/Vol]11.6 g/dLLowBon Secours Mercy HealthImmature granulocytes (Bld) [#/Vol]0.08 10*3/uLHighBon Secours Mercy HealthImmature granulocytes/100 WBC (Bld)4.2 %[facility] HealthInterpretation and review of laboratory resultsAbnormalBon Secours Mercy HealthLymphocytes Absolute0.7LowBon Secours Mercy HealthLymphocytes/100 WBC (Bld)37.0 %[facility] Mercy HealthH (RBC) [Entitic mass]30.9 pg26.0 - 33.0 pgBon Secours Mercy HealthHC (RBC) [Mass/Vol] 34.3 g/dLBon Secours Mercy HealthV (RBC) [Entitic vol]90.1 fL80.0 - 94.0 fLBon Secours Mercy HealthMonocytes Absolute0.1LowBon Secours Mercy Health Monocytes/100 WBC (Bld)7.8 %[facility] HealthNeutrophils Absolute0.9Low [facility] HealthNeutrophils/100 WBC (Bld)47.9 %[facility] Nucleated RBC/100 WBC (Bld) [Ratio]0 %/100 wbcBon Secours Mercy HealthPlatelet mean volume (Bld) [Entitic vol]11.4 fL9.4 - 12.4 fLBon Secours Mercy Health Platelets (Bld) [#/Vol]100 10*3/uLLowBon Secours Mercy HealthPlatelets LM Ql (Bld)SL DECREASEDAdequateBon Secours Mercy HealthRBC (Bld) [#/Vol]3.75 10*6/uL LowBon Secours Mercy HealthSmudge cells LM Ql (Bld)PresentAbsentBon Secours Mercy HealthComment on above:Performed at [facility] [address] [place] [id number] lymphocytes LM Ql (Bld)OCC.%[facility] HealthWBC (Bld) [#/Vol]1.9 10*3/uLLowBon Secours Mercy HealthEKG Rhythm Stripon [id number] Secours Mercy HealthEPSTEIN VARNER VIRUS ANTIBODIESon [id number] VARNER VIRUS ANTIBODIESSEE BELOWNoBrownfield Regional Medical CenterComment on above:Result Comment: EBV Ab to Viral Capsid Ag [...] helpful. 11.0 U/mL or greater....Detected Performed By: [employer] [address] [place], [place] [id number] Director Safety Council: Sunny Roman MD, PhD CLIA Number: [id number] By: #### MMMP, LPBM2, CRBM2 #### [facility] [address] [facility] [address]Kkfasrh varner virus (EBV) antibody panel [facility] 77-81-4053KJLDQKT-VARNER VIRUS ANTIBODIESSEE [facility] Health SystemComment on above:EBV Ab to Viral Capsid Ag IgG 320.0 [...] helpful. 11.0 U/mL or greater....Detected Performed By: [facility] [address] [place] [address] Director Safety Council: Sunny Roman MD, PhD CLIA Number: [id number] Hospital Corporation Of AmericaGFR, ESTIMATEDon 46-61-6055QJE/1.73 sq M.predicted MDRD (S/P/Bld) [Vol rate/Area]mL/min/{1.73_m2}Normal>60Bon [facility] Comment on above:Pediatric calculator link https://www.kidney.org/professionals/kdoqi/gfr_calculatorped Effective Jan 31, 2022 [...] that affects renal tubular secretion. Performed at [facility] [address] [place] [address] Result Comment: Pediatric calculator link https://www.kidney.org/professionals/kdoqi/gfr_calculatorped Effective Jan 31, [...] or following therapy that affects renal tubular secretion.Performed By: #### CRP, WSR #### [address] [address]Hp Panel Informationon 19-78-3138Zqx [facility] Peace HospitalSCAN OF BLOOD SMEARon 71-88-2271TNNX OF BLOOD SMEARsee below [facility] CenterComment on above:Criteria Exceeded; Scan of Differential Slide Performed Performed at [address] [address] Result Comment: Criteria Exceeded; Scan of Differential Slide PerformedPerformed By: #### CBCWD, SCAN1 #### [address] [address]MTZUG SMEAR REVIEWon 54-34-9273SEVYTBLOIJV REVIEWEDTammi FUNES. [facility] Medical CenterComment on above:Result Comment: Pancytopenia with normocytic anemia. No circulating blasts. No platelet clumps. Clinical correlation is recommended.Performed By: #### MMMP, LPBM2, CRBM2 #### [facility] [address] [facility] [address]UXHNG REVIEWED BY PATHOLOGISTsee belowHendrick Medical CenterComment on above:Result Comment: See BelowPerformed By: #### MMMP, LPBM2, CRBM2 #### [facility] [address] [facility] [address]FZE WITH DIFFERENTIALon 99-78-9065GXNZCFVIIBK REVIEWEDPCFNoBrownfield Regional Medical CenterComment on above:Performed By: #### CVFLU #### [address] [address]NMDPLOPG LYMPHOCC.[facility]rick Medical CenterComment on above:Performed By: #### CVFLU #### [address] [address]QSX BASOPHILS0.0 thou/bs0Ewpgui3.0-0.1SGraham [facility] Comment on above:Performed By: #### CVFLU #### [facility] [address] [place] [address]PLX EOSINOPHILS0.0 thou/mu8Atsrxr4.0-0.4SGraham Regional Medical CenterComment on above:Performed By: #### CVFLU #### [facility] [address] [place] [address] 199[address]XXQ IMMATURE GRANS (IG)0.09 thou/py6Esfx1.00-0.07[facility] Medical CenterComment on above:Performed By: #### CVFLU #### [address] [address]SAF LYMPHOCYTES0.5 thou/zm5Vgb0.0-4.8[facility] Comment on above:Performed By: #### CVFLU #### [address] [address]EEQ MONOCYTES0.1 thou/ta0Zda7.4-1.3SG[facility] Comment on above:Performed By: #### CVFLU #### [address] [address]LSW NEUTROPHILS1.1 thou/yd5Elk3.8-7.7[facility] Comment on above:Performed By: #### CVFLU #### [address] [address]Nkdhuxynm/100 WBC (Bld)1.1 %[facility] Comment on above:Performed By: #### CVFLU #### [facility] [address] [place] [address]Ngfslotcdvf/100 WBC (Bld)1.7 %[facility] Comment on above:Performed By: #### CVFLU #### [facility] [address] [place] [address] 25[address]Qqwbutdoqxb distribution width (RBC) [Ratio]12.3 %Zpccrz57.5-14.5 [facility] CenterComment on above:Performed By: #### CVFLU #### [address] [address]Khbsgganrl (Bld) [Volume fraction]38.2 %Low42.0-52.0[facility] Medical CenterComment on above:Performed By: #### CVFLU #### [address] [address]Pnsvvnmzvl (Bld) [Mass/Vol]12.9 g/dLLow14.0-18.0[facility] Medical CenterComment on above:Performed By: #### CVFLU #### [address] [address]GGLFIADD GRANS (IG)5.0 %[facility] Medical CenterComment on above:Performed By: #### CVFLU #### [address] [address]Cwnmoyxmkdo/100 WBC (Bld)26.3 %[facility] Comment on above:Performed By: #### CVFLU #### [address] [address]REA (RBC) [Entitic mass]30.2 xcAreeei92.0-33.0[facility] Medical CenterComment on above:Performed By: #### CVFLU #### [address] [address]OIGX (RBC) [Mass/Vol]33.8 g/lHQutadz73.2-35.5SGraham Regional Medical CenterComment on above:Performed By: #### CVFLU #### [address] [address]DTN (RBC) [Entitic vol]89.5 lHVowpff15.0-94.0[facility] Medical CenterComment on above:Performed By: #### CVFLU #### [address] [address]Sfdmprdaj/100 WBC (Bld)5.6 %[facility] Comment on above:Performed By: #### CVFLU #### [address] [address]Nejhkrhnniz/100 WBC (Bld)60.3 %[facility] Comment on above:Performed By: #### CVFLU #### [facility] [address] [place] [address]KBMG0 /100 wbcNormUniversity HospitalComment on above: Performed By: #### CVFLU #### [address] [address]LQHPKQSQ05 thou/qt5Ekh498-328KqydlEnnis Regional Medical CenterComment on above:Performed By: #### CVFLU #### [address] [address]Mnlgadyb mean volume (Bld) [Entitic vol]11.2 fLNormal9.4-12.4SGraham Regional Medical CenterComment on above:Performed By: #### CVFLU #### [address] [address]HLX5.27 mill/tg6Pxh4.70-6.10[facility] Medical CenterComment on above:Performed By: #### CVFLU #### [address] [address]DKP-KV09.0 vPFsrhqg00.0-45.0[facility] CenterComment on above:Performed By: #### CVFLU #### [address] [address]RIF0.8 thou/yx2Jrt2.8-10.8[facility] Medical CenterComment on above:Performed By: #### CVFLU #### [address] [address]FWM with Auto Differentialon 75-14-1677Nadhduulh (Bld) [#/Vol]0.0 10*3/uLBon Secours Mercy HealthBasophils/100 WBC (Bld)1.1 %[facility] Secours Mercy HealthEosinophils Absolute0.0Bon Secours Mercy HealthEosinophils/100 WBC (Bld) 1.7 %[facility] HealthErythrocyte distribution width (RBC) [Entitic vol] 40.0 fL35.0 - 45.0 fLBon Secours Mercy HealthErythrocyte distribution width (RBC) [Ratio]12.3 %11.5 - 14.5 %[facility] Mer[facility] HealthHematocrit (Bld) [Volume fraction]38.2 %Low42.0 - 52.0 %[facility] HealthHemoglobin (Bld) [Mass/Vol]12.9 g/dLLowBon Secours Mercy HealthImmature granulocytes (Bld) [#/Vol]0.09 10*3/uLHighBon Secours Mercy HealthImmature granulocytes/100 WBC (Bld)5.0 %[facility] HealthInterpretation and review of laboratory resultsAbnormalBon Secours Mercy HealthLymphocytes Absolute0.5LowBon Secours Mercy HealthLymphocytes/100 WBC (Bld)26.3 %[facility] HealthMCH (RBC) [Entitic mass]30.2 pg26.0 - 33.0 pgBon Secours Mercy HealthMCHC (RBC) [Mass/Vol] 33.8 g/dLBon Secours Mercy HealthMCV (RBC) [Entitic vol]89.5 fL80.0 - 94.0 fLBon Secours Mercy HealthMonocytes Absolute0.1LowBon Secours Mercy Health Monocytes/100 WBC (Bld)5.6 %[facility] HealthNeutrophils Absolute1.1Low [facility] HealthNeutrophils/100 WBC (Bld)60.3 %[facility] Nucleated RBC/100 WBC (Bld) [Ratio]0 %/100 wbcBon Secours Mercy HealthComment on above:Performed at [facility] [place] [address] Pathologist ReviewPCFBon Secours Mercy HealthPlatelet mean volume (Bld) [Entitic vol]11.2 fL9.4 - 12.4 fLBon Secours Mercy HealthPlatelets (Bld) [#/Vol]86 10*3/uLLowBon Secours Mercy HealthRBC (Bld) [#/Vol]4.27 10*6/uLLowBon Secours Mercy HealthVariant lymphocytes LM Ql (Bld)OCC.%[facility] HealthWBC (Bld) [#/Vol]1.8 10*3/uLLowBon Secours Mercy HealthCT BIOPSY BONE MARROWon 54-21-7536UW BIOPSY BONE MARROWCT-GUIDED BONE MARROW BIOPSY: CLINICAL INFORMATION: 33-year-old male [...] ox monitoring devices by a registered nurse. Vida-zo-trtt time with patient 10 minutes. PROCEDURE: Signed [...] utilizing coaxial technique and handed to the cath laboratory technician for processing and evaluation. Post [...] Signed by: Kostas Castanon MD 03/01/24 Final resultNormalSGraham Regional Medical CenterCT Guidance for biopsy of Bone marrowon 10-43-5276Lxtxnu post successful CT guided bone marrow biopsy. This report has been created using voice recognition software. It may contain minor errors which are inherent in voice recognition technology. Electronically signed by Dr Kostas CastanonWMOSAIC LIFE CARE AT ST. [facility] RIS CONSOLIDATEDCT-GUIDED BONE MARROW BIOPSY: CLINICAL INFORMATION: 33-year-old male [...] ox monitoring devices by a registered nurse. Qnzg-jn-qfbt time with patient 10 minutes. PROCEDURE: Signed [...] utilizing coaxial technique and handed to the cath laboratory technician for processing and evaluation. Post procedure CT images revealed no significant post biopsy hemorrhage... At the end of the procedure, hemostasis was obtained with manual pressure The patient tolerated the procedure well. ALL CT SCANS AT THIS FACILITY use dose modulation, iterative reconstruction, and/or weight-based dosing when appropriate to reduce radiation dose to as low as reasonably achievable. [facility] Kostas Tao MD - 03/01/2024 CT-GUIDED BONE MARROW BIOPSY: [...] ox monitoring devices by a registered nurse. Ycbe-tt-oxgv time with patient 10 minutes. PROCEDURE: Signed [...] utilizing coaxial technique and handed to the cath laboratory technician for processing and evaluation. Post [...] technology. Electronically signed by Dr Kostas Castanon [facility] Neo PLMRadiology Study observation (narrative)[employer]ound SolarVA Guidance for biopsy of Bone marrowOrdered By: Kostas Castanon on 65-95-9519Jon [employer] Phone: EKG 12 LeadOrdered By: Nayeli Morris on 03-01-2024 Atrial Xczf65EJTBjz [employer] Phone: P Cvyk95hmewxveSrqBsmark Phone: [phone]-R Ggsrgtmd022 [employer] Phone: [phone]-T Xrxtpxkq669 [employer] Phone: [phone] Gnjnmqkt776 [employer] Phone: [phone] Calculation (Bazett)454 [employer] Phone: R Pttp60juhkytvLioBsmark Phone: [phone] Ktif29ztzyykcVxzBsmark Phone: [phone] Pmdt42BKJYib [employer] Phone: Bon [employer] Phone: [phone] 12 Leadon 79-00-3265Qwsdax sinus rhythm Nonspecific T wave abnormality Abnormal ECG When compared with ECG of 28-FEB-2024 20:02, No significant change was found Confirmed by NAYELI MORRIS ([id number]) on 03/01/2024 1:00:05 PMWCOH STR Naylei Javier MD - 03/01/2024 Normal sinus rhythm Nonspecific T wave abnormality Abnormal ECG When compared with ECG of 28-FEB-2024 20:02, No significant change was found Confirmed by NAYELI MORRIS ([id number]) on 03/01/2024 1:00:05 PM Hospital Corporation Of AmericaEKG Rhythm Stripon [id number] Secours Mercy Vnqojf85YNAOAZHXocClinch Valley Medical Center Healthhr 86PACEClinch Valley Medical Center HealthNo Panel Informationon 34-81-9664Uml [facility]ullPath Review, Smearon 85-85-8543EAQRSUBM BYEstefani FUNESStafford Hospital on above: Pancytopenia with normocytic anemia. No circulating blasts. No platelet clumps. Clinical correlation is recommended[place] [address] Smear Reviewsee belowStafford Hospital on above:See BelowSCAN OF BLOOD SMEARon 81-22-6501GXIK OF BLOOD SMEARsee belowNoSentara Obici Hospital on above:Criteria Exceeded; Scan of Differential Slide Performed [place] [address] Result Comment: Criteria Exceeded; Scan of Differential Slide PerformedPerformed By: #### CVFLU #### [place], [place] [address]SURGICALon 40-70-7556HKGLMGCYNikz Pathology ETHAN DONALD 24-SR-46907 Assoc. Page [address] [place] [address] PROC: 03/01/2024 NVML/[facility]'mally RECV: 03/01/2024 [address] [facility] RPTD: 03/20/2024 [place] [address] LOC: 4A ACCT: [id number] SEX: M : 1990 AGE: 33 Y [...] x 2.0 x 0.7 cm in aggregate. Cork Cutter blood clot is submitted in one cassette labeled A1. B - The specimen container is labeled Ethan Resendezyessi, bone marrow core. The specimen is received [...] currently pending. Please see separate reference reports. [id number] [id number] x 2 LIZY BRISCOE M.D., F.C.A.P. [facility]/ [facility] Printed on: 03/20/[address] [place] [address] Original print date: 03/20/2024NormalSNorthwest Texas Healthcare Systemcan of Blood Smearon 14-16-2691Jao [facility] HospitalON GAPon 67-65-1394Wqyrk gap [Moles/Vol]13.0 mmol/LNormal8.0-16.0[facility] Medical CenterComment on above: Result Comment: ANION GAP = Sodium -(Chloride + CO2)Performed By: #### CVFLU #### [facility] [address] [place] [address]Lfxvr Gapon 78-84-0559Urvrc gap [Moles/Vol]13.0 mmol/L8.0 - 16.0 meq/LBon [facility] - TrumbullComment on above:ANION GAP = Sodium -(Chloride + CO2) Performed at [facility] [address] [place] [address] BASIC METABOL PANELon 98-58-6088Wcxqjrk [Mass/Vol]8.3 mg/dLLow8.5-10.5SGraham Regional Medical CenterComment on above:Performed By: #### CVFLU #### [facility] [address] [place] [address]Wtatdkjo [Moles/Vol]102 mmol/UIbtmzi24-321VlshwEnnis Regional Medical CenterComment on above:Performed By: #### CVFLU #### [facility] [address] [place] [address]BO3 [Moles/Vol]24 mmol/YNpihlx32-82PrvldEnnis Regional Medical Center Comment on above:Performed By: #### CVFLU #### [facility] [address] [place] [address]Wiahmllmvk [Mass/Vol]1.1 mg/dLNormal0.4-1.2SGraham Regional Medical CenterComment on above:Performed By: #### CVFLU #### [facility] [address] [place] [address]Mkcpmyo [Mass/Vol]96 mg/mVNldamx14-100PnhfqEnnis Regional Medical Center Comment on above:Performed By: #### CVFLU #### [facility] [address] [place] [address] 288[address]Kttydswwk [Moles/Vol]3.7 mmol/LNormal3.5-5.2SGraham Regional Medical CenterComment on above:Performed By: #### CVFLU #### [facility] [address] [place] [address] 247[address]Cqswkv [Moles/Vol]139 mmol/HZnlwwq636-920IkcvdEnnis Regional Medical CenterComment on above:Performed By: #### CVFLU #### [facility] [address] [place] [address] 45[address]Exly nitrogen [Mass/Vol]13 mg/dLNormal7-22[facility] Medical CenterComment on above:Performed By: #### CVFLU #### [facility] [address] [place] [address]Futwu metabolic 2000 panelon 52-46-6913Tkiiffm [Mass/Vol]8.3 mg/dL Low8.5 - 10.5 mg/dLBon [facility] - TrumbullComment on above:Performed at [facility] [address] [place], [place] [address]Kqucplzn [Moles/Vol]102 mmol/L 98 - 111 meq/LBon [facility] - TrumbullCO2 [Moles/Vol]24 mmol/L23 - 33 meq/LBon [facility] TrumbullCreatinine [Mass/Vol]1.1 mg/dL0.4 - 1.2 mg/dLBon [facility] TrumbullGlucose [Mass/Vol]96 mg/dL70 - 108 mg/dLBon [facility] Interpretation and review of laboratory resultsAbnormalBon [facility] Potassium [Moles/Vol]3.7 mmol/L3.5 - 5.2 meq/LBon [facility] TrumbullSodium [Moles/Vol]139 mmol/L135 - 145 meq/LBon [facility] TrumbullUrea nitrogen [Mass/Vol]13 mg/dL7 - 22 mg/dLBon [facility] TrumbullC-REACTIVE PROTEINon 98-74-9791C-REACTIVE PROTEIN4.49 mg/dlHigh0.00-1.00[facility] Comment on above:Performed By: #### CRP, WSR #### [facility] [address] [place] [address]X-Nrzjecxk Proteinon 18-28-0574CVY [Mass/Vol]4.49 mg/dlHigh0.00 - 1.00 mg/dlBon [facility] TrumbullComment on above:Performed at [facility] [address] [place] [address]YYCLDHG (IONIZED) * WBon 02-29-2024 CALCIUM (IONIZED) * WB1.11 mmol/LLow1.12-1.32En[facility] Medical CenterComment on above:Performed By: #### CVFLU #### [facility] [address] [place] [address]ETV WITH DIFFERENTIALon 78-51-0100PYEERSQR ESTIMATEDECREASEDNormal AdequateEnnis Regional Medical CenterComment on above:Performed By: #### CVFLU #### [facility] [address] [place] [address]HAOGEB CELLSPresentNormalAbsentSGraham Regional Medical CenterComment on above:Performed By: #### CVFLU #### [facility] [address] [place] [address]KHX BASOPHILS0.0 thou/rb9Kaxjme8.0-0.1SGraham [facility] Center Comment on above:Performed By: #### CVFLU #### [facility] [address] [place] [address]BHD EOSINOPHILS0.0 thou/hf8Obboxx9.0-0.4SGraham Regional Medical CenterComment on above:Performed By: #### CVFLU #### [facility] [address] [place] [address] 70651HIT IMMATURE GRANS (IG)0.05 thou/hi9Uzwehs3.00-0.07[facility] Medical CenterComment on above:Performed By: #### CVFLU #### [address] [address]RXM LYMPHOCYTES0.4 thou/qk9Stu2.0-4.8[facility] Comment on above:Performed By: #### CVFLU #### [address] [address]PMD MONOCYTES0.1 thou/sv9Gmi6.4-1.3SGraham Regional Medical Center Comment on above:Performed By: #### CVFLU #### [address] [address]JUU NEUTROPHILS0.9 thou/re9Ztz4.8-7.7[facility] Comment on above:Performed By: #### CVFLU #### [facility] [address] [place] [address]Mikztlutu/100 WBC (Bld)1.4 %[facility] Comment on above:Performed By: #### CVFLU #### [facility] [address] [place] [address]Vzzvacqkndd/100 WBC (Bld)0.7 %[facility] Comment on above:Performed By: #### CVFLU #### [address] [address]Rpcpmdcilbe distribution width (RBC) [Ratio]12.0 %Bxysmg25.5-14.5 [facility] CenterComment on above:Performed By: #### CVFLU #### [facility] [address] [place] [address]Ocmsanzxxa (Bld) [Volume fraction]36.0 %Low42.0-52.0[facility] Medical CenterComment on above:Performed By: #### CVFLU #### [facility] [address] [place] [address]Dajerrcxef (Bld) [Mass/Vol]12.2 g/dLLow14.0-18.0[facility] CenterComment on above:Performed By: #### CVFLU #### [facility] [address] [place] [address] 938[address]VTVYIDOZ GRANS (IG)3.4 %[facility] CenterComment on above:Performed By: #### CVFLU #### [address] [address]Dhqlinoxlgo/100 WBC (Bld)25.0 %[facility] Comment on above:Performed By: #### CVFLU #### [address] [address]KCD (RBC) [Entitic mass]30.7 sdFtriev59.0-33.0[facility] Medical CenterComment on above:Performed By: #### CVFLU #### [address] [address]VLOB (RBC) [Mass/Vol]33.9 g/pOSckwij35.2-35.5SGraham Regional Medical CenterComment on above:Performed By: #### CVFLU #### [address] [address]AAN (RBC) [Entitic vol]90.5 hQZrdymf10.0-94.0[facility] CenterComment on above:Performed By: #### CVFLU #### [address] [address]Hiwaizkjk/100 WBC (Bld)7.4 %[facility] Comment on above:Performed By: #### CVFLU #### [address] [address]Ipcsaidynzq/100 WBC (Bld)62.1 %NormalEnnis Regional Medical Center Comment on above:Performed By: #### CVFLU #### [address] [address]HEMA4 /100 wbcNormalSGraham Regional Medical CenterComment on above: Performed By: #### CVFLU #### [address] [address]RUTOBPBK63 thou/af6Kjs169-645MwpvwEnnis Regional Medical CenterComment on above:Performed By: #### CVFLU #### [address] [address]Vpyodkgx mean volume (Bld) [Entitic vol]10.7 fLNormal9.4-12.4SGraham Regional Medical CenterComment on above:Performed By: #### CVFLU #### [address] [address]IXV4.98 mill/tu2Vkc3.70-6.10[facility] Medical CenterComment on above:Performed By: #### CVFLU #### [address] [address]WLR-HY35.1 tIUxvstm20.0-45.0[facility] Medical CenterComment on above:Performed By: #### CVFLU #### [address] [address]OGA2.5 thou/vu8Qsx5.8-10.8[facility] CenterComment on above:Performed By: #### CVFLU #### [address] [address]ZWJ with Auto Differentialon 08-66-4120Dmeveuhho (Bld) [#/Vol]0.0 10*3/uLBon Secours Mercy HealthBasophils/100 WBC (Bld)1.4 %[facility] HealthEosinophils Absolute0.0[facility] HealthEosinophils/100 WBC (Bld) 0.7 %[facility] HealthErythrocyte distribution width (RBC) [Entitic vol] 40.1 fL35.0 - 45.0 fLBon Secours Mercy HealthErythrocyte distribution width (RBC) [Ratio]12.0 %11.5 - 14.5 %[facility] HealthHematocrit (Bld) [Volume fraction]36.0 %Low42.0 - 52.0 %[facility] HealthHemoglobin (Bld) [Mass/Vol]12.2 g/dLLowBon Secours Mercy HealthImmature granulocytes (Bld) [#/Vol]0.05 10*3/uLBon Secours Mercy HealthImmature granulocytes/100 WBC (Bld) 3.4 %[facility] HealthInterpretation and review of laboratory results AbnormalBon Secours Mercy HealthLymphocytes Absolute0.4LowBon Secours Mercy HealthLymphocytes/100 WBC (Bld)25.0 %[facility] HealthMCH (RBC) [Entitic mass]30.7 pg26.0 - 33.0 pgBon Secours Mercy HealthMCHC (RBC) [Mass/Vol]33.9 g/dL [facility] HealthMCV (RBC) [Entitic vol]90.5 fL80.0 - 94.0 fLBon Secours Mercy HealthMonocytes Absolute0.1LowBon Secours Mercy HealthMonocytes/100 WBC (Bld)7.4 %[facility] HealthNeutrophils Absolute0.9LowBon Secours Mercy HealthNeutrophils/100 WBC (Bld)62.1 %[facility] HealthNucleated RBC/100 WBC (Bld) [Ratio]0 %/100 wbcBon Secours Mercy HealthPlatelet mean volume (Bld) [Entitic vol]10.7 fL9.4 - 12.4 fLBon Secours Mercy HealthPlatelets (Bld) [#/Vol] 89 10*3/uLLowBon Secours Mercy HealthPlatelets LM Ql (Bld)DECREASEDAdequateBon Secours Mercy HealthRBC (Bld) [#/Vol]3.98 10*6/uLLowBon Secours [facility]cy Health Smudge cells LM Ql (Bld)PresentAbsentStafford Hospital on above: Performed at [facility] [address] [place], [place] [address]IXM (Bld) [#/Vol]1.5 10*3/uLLowBon [facility] TrumbullCRP [Mass/Vol]on 02-29-2024 Interpretation and review of laboratory resultsAbnormalBon [facility] Bon [facility] - TrumbullCalcium, Ionizedon 81-87-5382Koffqyo.ionized ISE (Bld) [Moles/Vol]1.11 mmol/LLow1.12 - 1.32 mmol/LBon [facility] on above:Performed at [facility] [address] [place] [address] 12[address]HUJ 12-LEADon 31-74-3856TOX 12-LEAD87 87 140 104 378 454 73 72 42 Normal sinus rhythm Nonspecific T wave abnormality Abnormal ECG When compared with ECG of 28-FEB-2024 20:02, No significant change was found Confirmed by NAYELI MORRIS ([id number]) on 03/01/2024 1:00:05 PM [email or web address]&Date=&Time=20%3a57%3a59%3a00&TestType=ECG&Site=3&OutputType=PDF&Ext=PDFNormal Ennis Regional Medical CenterESR Westergren method (Bld) [Velocity]on 02-29-2024 ESR (Bld) [Velocity]10 mm/hBon [facility] on above:Performed at [facility] [address] [place], [place] [address]Cya [facility] Electrophoresis Protein, Serumon 02-14-2632Hrucdji Electrophoresis, SerumSEE BELOWStafford Hospital on above:Total Protein, Serum 6.5 6.3-8.2 g/dL Albumin 3.95 [...] See Note Authorized individuals can access the [employer] Enhanced Report using the following link: [email or web address] Performed By: [facility] [address] [place] [address] Director Safety Council: Sunny Roman MD, PhD CLIA Number: [id number] Hospital Corporation Of AmericaFERRITINon 40-13-8171Xrpskwji [Mass/Vol]1435 ng/mLHigh 22-322SaUniversity Medical Center of El PasoComment on above:Performed By: #### CRP, WSR #### [facility] [employer] [address] [address]Abjvinldmn 66-71-3230Aakejuac [place] [Mass/Vol]1435 ng/mEKtfk62 - 322 ng/mLBon [facility] - TrumbullComment on above:Performed at [facility] [employer] [address] [address]DUZ, ESTIMATEDon 79-10-0195TQX/1.73 sq M.predicted MDRD (S/P/Bld) [Vol rate/Area]mL/min/{1.73_m2}Normal>60Bon [facility] on above:Pediatric calculator link https://www.kidney.org/professionals/kdoqi/gfr_calculatorped Effective Jan 31, 2022 [...] that affects renal tubular secretion. Performed at [facility] [employer] [address] [address] Result Comment: Pediatric calculator link https://www.kidney.org/professionals/kdoqi/gfr_calculatorped Effective Jan 31, [...] or following therapy that affects renal tubular secretion.Performed By: #### CVFLU #### [address] [address]KZTTUCC FUNCTION PANELon 78-25-5871Tvhhtzo [Mass/Vol]3.3 g/dLLow 3.5-5.1SGraham Regional Medical CenterComment on above:Performed By: #### CRP, WSR #### [address] [address]NRP [Catalytic activity/Vol]89 U/CWzekkv60-807DqmsmEnnis Regional Medical CenterComment on above:Performed By: #### CRP, WSR #### [address] [address]XLV [Catalytic activity/Vol]49 U/YCuxkir13-34ZxtguEnnis Regional Medical CenterComment on above:Performed By: #### CRP, WSR #### [address] [address]GCR [Catalytic activity/Vol]61 U/LHigh5-40SGraham Regional Medical CenterComment on above:Performed By: #### CRP, WSR #### [facility] [employer] [address] [place] [address]Tsciuylfo [Mass/Vol]0.7 mg/dLNormal0.3-1.2SGraham Regional Medical CenterComment on above:Performed By: #### CRP, WSR #### [facility] [employer] [address] [place] [address]Jurutjxuw.direct [Mass/Vol]0.3 mg/dLNormal0.1-13.8Ennis Regional Medical CenterComment on above:Performed By: #### CRP, WSR #### [facility] [address] [place] [address]Mfddghe [Mass/Vol]5.8 g/dLLow6.1-8.0[facility] Comment on above:Performed By: #### CRP, WSR #### [facility] [address] [place], [place] [address]TIP 1+2 Ab+HIV1 p24 Ag IA Qlon 46-89-4693Yfi [facility] HIV AG/ABon 37-38-8049GLP AG/ABSEE [facility] HospitalComment on above:Result Comment: HIV Ag/Ab NONREACTIVE NR No laboratory evidence of HIV infection. If acute HIV infection is suspected, consider testing for HIV-1 RNA. Performed at [facility], [address] [place] [address] .Performed By: #### CRP, WSR #### [address] [address]ANX Screenon 12-39-2029DDG 1+2 Ab+HIV1 p24 Ag IA QlSEE BELOWBon [facility] - TrumbullComment on above:HIV Ag/Ab NONREACTIVE NR No laboratory evidence of HIV infection. If acute HIV infection is suspected, consider testing for HIV-1 RNA. Performed at [address] [address] . Hepatic function 2000 panelon 96-31-1282Ckuukmz BCG dye [Mass/Vol]3.3 g/dLLow3.5 - 5.1 g/dLBon [facility] - TrumbullALP [Catalytic activity/Vol]89 U/L38 - 126 U/LBon [facility] TrumbullALT No additional P-5'-P [Catalytic activity/Vol]49 U/L11 - 66 U/LBon [facility] HealthAST [Catalytic activity/Vol]61 U/LHigh5 - 40 U/LBon [facility] TrumbullBilirubin [Mass/Vol]0.7 mg/dL0.3 - 1.2 mg/dLBon [facility] TrumbullBilirubin.conjugated [Mass/Vol]0.3 mg/dL0.1 - 13.8 mg/dLBon [facility] TrumbullProtein [Mass/Vol]5.8 g/dLLow6.1 - 8.0 g/dLBon [facility] - TrumbullComment on above:Performed at [facility] [address] [address]KNSJmo 05-58-3962Plaw [Mass/Vol]31 ug/nENgr82-857EhdpjEnnis Regional Medical CenterComment on above:Performed By: #### CRP, WSR #### [facility] [address] [address]URVK BINDING CAPACITYon 92-01-3188QUQS BINDING IYKNBKVE617 ug/dL Wgwyue643-017TxmjjEnnis Regional Medical CenterComment on above:Performed By: #### CRP, WSR #### [address] [address]BAED SATURATIONon 74-31-9381Qgyz saturation [Mass fraction]16 %Low 20 - 50 %Bon [facility] - TrumbullComment on above:Performed at [address] [address]TAVY ODFXEPWCIU62 %Pno44-87WcfomEnnis Regional Medical CenterComment on above:Performed By: #### CRP, WSR #### [address] [address]Llvepv 05-64-9723Wjhw [Mass/Vol]31 ug/dLLow65 - 195 ug/dLBon [facility] TrumbullComup health system on above:Performed at [facility] Medical [address] [address]Jsux binding capacityon 41-56-8954Ilew binding capacity [Mass/Vol]199 ug/dL171 - 450 ug/dLBon [facility] - TrumbullComment on above:Performed at [facility] [address] [address]HY Brain WO and W contrast Frances 93-28-8378Rk acute intracranial findings. This document has been electronically signed by: Jadon Bhatti MD on 02/29/2024 02:17 AMWCO DARRON DECKERI Brain W/WO Contrast COMPARISON: None FINDINGS: No evidence of acute infarction. No acute intracranial hemorrhage. No mass-effect or midline shift. No abnormal enhancement. No hydrocephalus. Clear paranasal sinuses. Clear mastoid air cells. Unremarkable orbits. [facility] Jadon Jefferson MD - 02/29/2024 MRI Brain W/WO Contrast COMPARISON: None FINDINGS: No evidence of acute infarction. No acute intracranial hemorrhage. No mass-effect or midline shift. No abnormal enhancement. No hydrocephalus. Clear paranasal sinuses. Clear mastoid air cells. Unremarkable orbits. IMPRESSION: No acute intracranial findings. This document has been electronically signed by: Jadon Bhatti MD on 02/29/2024 02:17 AM [facility] Brain WO and W contrast IVOrdered By: Jadon Bhatti on 81-03-2983MduInova Loudoun Hospital Work Phone: MRI BRAIN W WO CONTRASTon 44-58-9175GMX BRAIN W WO CONTRASTMRI Brain W/WO Contrast COMPARISON: None FINDINGS: No [...] Signed by: Jadon Bhatti MD 02/29/24 Final resultNormalSGraham Regional Medical CenterNo Panel Informationon 02-29-2024 Interpretation and review of laboratory resultsAbPlatte Health Center / Avera HealthInterpretation and review of laboratory resultsAbnoSame Day Surgery CenterPROTEIN ELECTRO., SERUMon 72-25-4417UNFMIDC ELECTRO., SERUM SEE BELOWNormalSGraham Regional Medical CenterComment on above:Result Comment: Total Protein, Serum 6.5 6.3-8.2 g/dL Albumin 3.95 3.75-5.01 g/dL Alpha 1 Globulin 0.41 0.19-0.46 g/dL Alpha 2 Globulin 0.47 L 0.48-1.05 g/dL Beta Globulin 0.80 0.48-1.10 g/dL Gamma 0.87 0.62-1.51 g/dL Monoclonal Protein N/A <=0.00 g/dL SPEP/BRSIA Interpretation See Note Normal SPEP pattern. Immunofixation Electrophoresis (BRISA) is a more sensitive technique for identification of small monoclonal proteins. EER Protein Electrophoresis, Serum See Note Authorized individuals can access the [facility] Enhanced Report using the following link: [email or web address] Performed By: [employer] [address] [place] [address] Director Safety Council: Sunny Roman MD, PhD CLIA Number: [id number] By: #### DHRUV, WSR #### [address] [address]OTGQ OF BLOOD SMEARon 24-87-2529GGLE OF BLOOD SMEARsee Hospital Corporation of AmericaComment on above:Criteria Exceeded; Scan of Differential Slide Performed Performed at [address] [address] Result Comment: Criteria Exceeded; Scan of Differential Slide PerformedPerformed By: #### DHRUV, WSR #### [address] [address]GUC RATEon 98-68-7036KSG RATE10 mm/hrNormal0-10Ennis Regional Medical CenterComment on above:Performed By: #### DHRUV, WSR #### [address] [address]GCSFJ GAPon 09-29-0092Lsdmu gap [Moles/Vol]14.0 mmol/LNormal 8.0-16.0Ennis Regional Medical CenterComment on above:Result Comment: ANION GAP = Sodium -(Chloride + CO2)Performed By: #### MMWENDY, LPBM2, CRBM2 #### [facility] [address] [facility] [address]KHIWaj 13-71-7314iYZT Coag (Bld) [Time]24.6 iEryzjd66.0-38.0Ennis Regional Medical CenterComment on above:Result Comment: Therapeutic Heparin Reference Range= 60-95 seconds (corresponds to 0.3 to 0.7 u/mL Anti-Xa factor activity)Performed By: #### MMMP, LPBM2, CRBM2 #### [facility] [address] [facility] [place] [address]Xmpdp Gapon 22-89-4584Sgpyt gap [Moles/Vol]14.0 mmol/L8.0 - 16.0 meq/LBon [facility] - TrumbullComment on above:ANION GAP = Sodium -(Chloride + CO2) Performed at [facility] [address] [place] [address] CBC WITH DIFFERENTIALon 80-74-6409LFW BASOPHILS0.0 thou/ri3Zelorz6.0-0.1SGraham Regional Medical CenterComment on above:Performed By: #### MMMP, LPBM2, CRBM2 #### [facility] [address] [facility] [place] [address]NRE EOSINOPHILS0.0 thou/ce4Axqsuh1.0-0.4SGraham Regional Medical Center Comment on above:Performed By: #### MMMP, LPBM2, CRBM2 #### [facility] [address] [facility] [place] [address]MFJ IMMATURE GRANS (IG)0.03 thou/bo5Byhjwg4.00-0.07Ennis Regional Medical CenterComment on above:Performed By: #### MMMP, LPBM2, CRBM2 #### [facility] [address] [facility] [place] [address]WEL LYMPHOCYTES0.4 thou/gc8Jsw5.0-4.8[facility] Comment on above:Performed By: #### MMMP, LPBM2, CRBM2 #### [facility] [address] [facility] [place] [address]ZGM MONOCYTES0.2 thou/wb7Gsd6.4-1.3SGraham Regional Medical Center Comment on above:Performed By: #### MMMP, LPBM2, CRBM2 #### [facility] [address] [facility] [place] [address]NND NEUTROPHILS1.6 thou/me4Jvq5.8-7.7[facility] Comment on above:Performed By: #### MMMP, LPBM2, CRBM2 #### [facility] [address] [facility] [place] [address]Vyppkxzrr/100 WBC (Bld)1.7 %NormalBon [facility] TrumbullComment on above:Performed By: #### MMMP, LPBM2, CRBM2 #### [facility] [address] [facility] [address]Izxkummdxcl/100 WBC (Bld)0.9 %NormalBon [facility] TrumbullComment on above:Performed By: #### MMMP, LPBM2, CRBM2 #### [facility] [address] [facility] [address]Ywuzhhyitpx distribution width (RBC) [Ratio]12.2 %Saoenq36.5-14.5Bon SecSt. Mary's Medical CenterComment on above:Performed By: #### MMMP, LPBM2, CRBM2 #### [facility] [address] [facility] [address]Rlqoekdbvd (Bld) [Volume fraction]39.2 %Low42.0-52.0Bon SecSt. Mary's Medical CenterComment on above:Performed By: #### MMMP, LPBM2, CRBM2 #### [facility] [address] [facility] [address]Uajovjfrmq (Bld) [Mass/Vol]13.1 g/dLLow14.0-18.0Bon [facility] HospitalComment on above:Performed By: #### MMMP, LPBM2, CRBM2 #### [facility] [address] [facility] [address]KKFVDRYZ GRANS (IG)1.3 %[facility] CenterComment on above:Performed By: #### MMMP, LPBM2, CRBM2 #### [facility] [address] [facility] [address]Pgbwhnswmos/100 WBC (Bld)17.7 %NormalBon [facility] TrumbullComment on above:Performed By: #### MMMP, LPBM2, CRBM2 #### [facility] [address] [facility] [address]SIG (RBC) [Entitic mass]30.2 acBlwabc09.0-33.0Bon SecSt. Mary's Medical CenterComment on above:Performed By: #### MMMP, LPBM2, CRBM2 #### [facility] [address] [facility] [address]DESM (RBC) [Mass/Vol]33.4 g/fGUspnph23.2-35.5Bon SecSt. Mary's Medical CenterComment on above:Performed By: #### MMMP, LPBM2, CRBM2 #### [facility] [address] [facility] [address]LKR (RBC) [Entitic vol]90.3 vJHnqoaq74.0-94.0Bon SecSt. Mary's Medical CenterComment on above:Performed By: #### MMMP, LPBM2, CRBM2 #### [facility] [address] [facility] [address]Yauugcynw/100 WBC (Bld)8.2 %NormalBon [facility] - TrumbullComment on above:Performed By: #### MMMP, LPBM2, CRBM2 #### [facility] [address] [facility] [address]Fyymrmihaea/100 WBC (Bld)70.2 %NormalBon SecSt. Mary's Medical CenterComment on above:Performed By: #### MMMP, LPBM2, CRBM2 #### [facility] [address] [facility] [address]HJZF1 /100 wbcNormalSGraham Regional Medical CenterComment on above: Performed By: #### MMMP, LPBM2, CRBM2 #### [facility] [address] [facility] [address]EVRLTAJY322 thou/wo8Xmp212-940XlvlgEnnis Regional Medical CenterComment on above:Performed By: #### MMMP, LPBM2, CRBM2 #### [facility] [address] [facility] [address]Kodyaisv mean volume (Bld) [Entitic vol]10.7 fLNormal9.4-12.4Bon SecSt. Mary's Medical CenterComment on above:Performed By: #### MMMP, LPBM2, CRBM2 #### [facility] [address] [facility] [address]GTD1.34 mill/ol9Cxb0.70-6.10Ennis Regional Medical CenterComment on above:Performed By: #### MMMP, LPBM2, CRBM2 #### [facility] [address] [facility] [address]IWF-TA96.4 zJHairft72.0-45.0Ennis Regional Medical CenterComment on above:Performed By: #### MMMP, LPBM2, CRBM2 #### [facility] [address] [facility] [address]JWU0.3 thou/jf1Iqb0.8-10.8Ennis Regional Medical CenterComment on above:Performed By: #### ANNE, JORGEBM2, CRBM2 #### [facility] [address] [facility] [address]HRM with Auto Differentialon 47-80-2894Zwwzgphca (Bld) [#/Vol]0.0 10*3/uLBon Secours Mercy HealthEosinophils Absolute0.0[facility] Health Erythrocyte distribution width (RBC) [Entitic vol]40.4 fL35.0 - 45.0 fLBon SecWhidbeyHealth Medical Centery Mount St. Mary HospitalImmature granulocytes (Bld) [#/Vol]0.03 10*3/uLBon Secours Mercy Mount [facility]. Mary HospitalImmature granulocytes/100 WBC (Bld)1.3 %Bon [facility] Interpretation and review of laboratory resultsAbnormalBon [facility]Central [facility] Health Lymphocytes Absolute0.4LowBon Secours Providence Hospitaly HealthMonocytes Absolute0.2LowBon Secours Mercy HealthNeutrophils Absolute1.6LowBon Secours Mercy [facility] St. Mary HospitalNucleated RBC/100 WBC (Bld) [Ratio]0 %/100 wbcBon SecSt. Mary's Medical CenterComment on above: Performed at [address] [address]Sxzrdomzz (Bld) [#/Vol]107 10*3/uLLowBon Secours Providence Hospitaly HealthRBC (Bld) [#/Vol]4.34 10*6/uL LowBon Secours Western Reserve HospitalWBC (Bld) [#/Vol]2.3 10*3/uLLowBon Secours Providence Hospitaly HealthBon SecCentral Louisiana Surgical Hospital HealthCOMP. METABOLIC PANELon 11-28-1403Xhictxw [Mass/Vol]3.6 g/dLNormal3.5-5.1Saint Cascade Medical CenterComment on above: Performed By: #### ANNE, JORGEBM2, CRBM2 #### [facility] [address] [facility] [address]CMV [Catalytic activity/Vol]85 U/XDiktge22-762VobymEnnis Regional Medical CenterComment on above:Performed By: #### ANNE, LPBM2, CRBM2 #### [facility] [address] [place] [address]BFS [Catalytic activity/Vol]39 U/NRpqhpa87-71NbejmEnnis Regional Medical CenterComment on above:Performed By: #### MMMP, LPBM2, CRBM2 #### [facility] [address] [facility] [place] [address]RSE [Catalytic activity/Vol]45 U/LHigh5-40SGraham Regional Medical CenterComment on above:Performed By: #### MMMP, LPBM2, CRBM2 #### [facility] [address] [facility] [place] [address]Wfrscpfpb [Mass/Vol]0.8 mg/dLNormal0.3-1.2SGraham Regional Medical CenterComment on above:Performed By: #### MMMP, LPBM2, CRBM2 #### [facility] [address] [facility] [place] [address]Sgmebdv [Mass/Vol]8.5 mg/dLNormal8.5-10.5SGraham [facility] Medical Center Comment on above:Performed By: #### MMMP, LPBM2, CRBM2 #### [facility] [address] [facility] [address]Ygasxmbp [Moles/Vol]101 mmol/TDdkmjj06-231VmgqtEnnis Regional Medical CenterComment on above:Performed By: #### MMMP, LPBM2, CRBM2 #### [facility] [address] [facility] [place] [address]PC5 [Moles/Vol]25 mmol/HErsuig70-84PtplxEnnis Regional Medical Center Comment on above:Performed By: #### MMMP, LPBM2, CRBM2 #### [facility] [address] [facility] [place] [address]Nzanqhqgsz [Mass/Vol]1.2 mg/dLNormal0.4-1.2SGraham Regional Medical CenterComment on above:Performed By: #### MMMP, LPBM2, CRBM2 #### [facility] [address] [facility] [place] [address]Xphamvb [Mass/Vol]94 mg/cVHgerjb76-989ScdtrEnnis Regional Medical Center Comment on above:Performed By: #### MMMP, LPBM2, CRBM2 #### [facility] [address] [facility] [place] [address]HQGVYSSIS WITH REFLEX MG4.1 meq/LNormal3.5-5.2SGraham Regional Medical CenterComment on above:Performed By: #### MMMP, LPBM2, CRBM2 #### [facility] [address] [facility] [address]Qiqxcdn [Mass/Vol]6.2 g/dLNormal6.1-8.0[facility] Comment on above:Performed By: #### MMMP, LPBM2, CRBM2 #### [facility] [address] [facility] [address]Omozjf [Moles/Vol]140 mmol/LPtfdnn952-309RcbgwEnnis Regional Medical Center Comment on above:Performed By: #### MMMP, LPBM2, CRBM2 #### [facility] [address] [facility] [address]Swid nitrogen [Mass/Vol]15 mg/dLNormal7-22Ennis Regional Medical CenterComment on above:Performed By: #### MMMP, LPBM2, CRBM2 #### [facility] [address] [facility] [address]Tfexxbywjpprv metabolic 2000 panelon 47-76-2228Ylxekpt BCG dye [Mass/Vol]3.6 g/dL3.5 - 5.1 g/dLBon Secours GuestDriveny HealthALP [Catalytic activity/Vol]85 U/L38 - 126 U/LBon Secours GuestDriveny HealthALT No additional P-5'-P [Catalytic activity/Vol]39 U/L11 - 66 U/LBon Secours GuestDriveny HealthComment on above:Performed at [facility] [address] [place] [address]TPS [Catalytic activity/Vol]45 U/LHigh5 - 40 U/LBon Secours Mercy HealthBilirubin [Mass/Vol]0.8 mg/dL0.3 - 1.2 mg/dLBon Secours Mercy HealthCalcium [Mass/Vol]8.5 mg/dL8.5 - 10.5 mg/dLBon Secours Mercy HealthChloride [Moles/Vol]101 mmol/L98 - 111 meq/LBon Secours Mercy HealthCO2 [Moles/Vol]25 mmol/L23 - 33 meq/LBon [facility]ours Mercy HealthCreatinine [Mass/Vol]1.2 mg/dL0.4 - 1.2 mg/dLBon [facility] TrumbullGlucose [Mass/Vol]94 mg/dL70 - 108 mg/dLBon [facility] Interpretation and review of laboratory resultsAbnormalBon [facility] Potassium [Moles/Vol]4.1 mmol/L3.5 - 5.2 meq/LBon [facility] HealthProtein [Mass/Vol]6.2 g/dL6.1 - 8.0 g/dLBon [facility] TrumbullSodium [Moles/Vol]140 mmol/L135 - 145 meq/LBon [facility] TrumbullUrea nitrogen [Mass/Vol]15 mg/dL7 - 22 mg/dLBon [facility] TrumbullEKG 12 Leadon 47-75-4511Wnycyl Fdpk69GTEPjgInova Loudoun HospitalP Yqxq89ebgihclVeaInova Fair Oaks Hospital HealthP-R Bcuvdkio736 msHospital Corporation Of AmericaQ-T Dkclfeti723 msInova Fair Oaks Hospital nprogressQRS Tvkejtjl279 msHospital Corporation Of AmericaQTc Calculation (Bazett)442 msHospital Corporation Of America R Hybi77ujblmhfWdjHospital Corporation Of AmericaT Qymc71ztjrdpqPozHospital Corporation Of America Ventricular Xdhq08VSAJwt [facility] TrumbullNormal sinus rhythm Incomplete right bundle branch block Nonspecific T wave abnormality Abnormal ECG When compared with ECG of 28-FEB-2024 16:05, No significant change was found Confirmed by Arben Mercado ([id number]) on 02/28/2024 8:19:15 PMMauricio Turner MD - 02/28/2024 Normal sinus rhythm Incomplete right bundle branch block Nonspecific T wave abnormality Abnormal ECG When compared with ECG of 28-FEB-2024 16:05, No significant change was found Confirmed by Arben Mercado ([id number]) on 02/28/2024 8:19:15 PM [facility]Normal [facility] rhythm Incomplete right bundle branch block Nonspecific ST and T wave abnormality Abnormal ECG No previous ECGs available Clinical correlation is indicated Confirmed by Arben Mercado ([id number]) on 02/28/2024 7:52:29 PMWCOReece Monroy, Provider, - 02/28/2024 Normal sinus rhythm Incomplete right bundle branch block Nonspecific ST and T wave abnormality Abnormal ECG No previous ECGs available Clinical correlation is indicated Confirmed by Arben Mercado ([id number]) on 02/28/2024 7:52:29 PM [facility] Neo PLMEKG 12 LeadOrdered By: Provider Unknown on 02-28-2024 Atrial Wzvk39GQUWsn [employer] Phone: [phone] Vruq96vkicvbmSlzNetRetail Holding Phone: [phone]-R Hkbctuct227 msNetRet[employer] Phone: [phone]-T Qdjqfwpq801 [employer] Phone: [phone] Apsvymkp953 [employer] Phone: QTc Calculation (Bazett)440 msBon [employer] Work Phone: [phone] Zpxo58zrhwwkrYbzNetRetail Holding Phone: [phone] Yjob29nclwvyjJwaBsmark Phone: [phone] Bpvu97HFJHsu [employer] Phone: [phone] [employer] Phone: [phone] 12-LEADon 47-93-5566BLS 12-LEAD91 91 142 100 [phone] 25 Normal sinus rhythm Incomplete right bundle branch block Nonspecific T wave abnormality Abnormal ECG When compared with ECG of 28-FEB-2024 16:05, No significant change was found Confirmed by Arben Mercado ([id number]) on 02/28/2024 8:19:15 PM [email or web address] [id number]&Date=&Time=20%3a02%3a02%3a00&TestType=ECG&Site=3&OutputType=PDF&Ext=PDFMetropolitan Methodist HospitalEK 12-LEAD78 78 154 102 386 440 56 63 19 Normal sinus rhythm Incomplete right bundle branch block Nonspecific ST and T wave abnormality Abnormal ECG No previous ECGs available Clinical correlation is indicated Confirmed by Arben Mercado ([id number]) on 02/28/2024 7:52:29 PM [email or web address]&Date=&Time=16%3a05%3a49%3a00&TestType=ECG&Site=3&OutputType=PDF&Ext=PDFMetropolitan Methodist HospitalEK Rhythm Stripon 12-73-7657WLMCQCLUmp [facility] - TrumbullGFR, ESTIMATEDon 76-73-0679CKW/1.73 sq M.predicted MDRD (S/P/Bld) [Vol rate/Area]83 mL/min/{1.73_m2}Normal>60Bon [facility] - TrumbullComment on above: Pediatric calculator link https://www.kidney.org/professionals/kdoqi/gfr_calculatorped Effective [...] that affects renal tubular secretion. Performed at [employer] [address] [place] [address] Result Comment: Pediatric calculator link https://www.kidney.org/professionals/kdoqi/gfr_calculatorped Effective Jan 31, [...] or following therapy that affects renal tubular secretion.Performed By: #### ANNE, FELICITAS2, CRBM2 #### [facility] [address] [facility] [address]OHS Coag (PPP) [Relative time]on 87-89-8858Xnw [facility] Influenza virus A and B RNA and SARS-CoV-2 (COVID-19) N gene panel MARIKA+probe (Resp)on 27-46-8182ROWFK RNA MARIKA+probe Ql (Resp)Not detectedNOT DETECTEDBon [facility] - TrumbullFLUBV RNA MARIKA+probe Ql (Resp)Not detectedNOT DETECTEDBon [facility] TrumbullComment on above:Performed at [facility] Medical [address] [address]OHQR-TnM-3 (COVID-19) RNA MARIKA+probe Ql (Resp)Not detectedNOT DETECTEDBon [facility] TrumbullComup health system on above:Not Detected results do not preclude SARS-CoV-2 infection [...] in nasopharyngeal and nasal swab specimens. Bon [facility] Hospital - TrumbullLDon 34-63-8484WY941 U/LUmhg691-117Ixukd [facility] Medical CenterComment on above:Performed By: #### ANNE, FELICITAS2, CRBM2 #### [facility] [address] [facility] [place] [address]Qtjfagx Dehydrogenaseon 77-72-6843NAK Lactate to pyruvate reaction [Catalytic activity/Vol]532 U/TQkmn805 - 190 U/LBon [facility] - TrumbullComment on above:Performed at [facility] Medical [address] [address] MAGNESIUMon 65-96-7570Zjybgabod [Mass/Vol]2.3 mg/dLNormal1.6-2.4Saint Cascade Medical CenterComment on above:Performed By: #### CVFLU #### [employer] [facility] [address] 146[address]HO Brain WO and W contrast Frances 16-57-5403Rfkhhgeyi Study observation (narrative)Roberto [facility] JosephCT [facility] Mary HospitalMagnesiumon 88-79-9323Jpqukpgbt [Mass/Vol]2.3 mg/dL1.6 - 2.4 mg/dLBon [facility] JosephCT [facility] Mary HospitalComment on above: Performed at [facility] [address] [place] [address] 909[address]Gjryrcnoc [Mass/Vol]on 90-51-0376Fef [facility] JosephCT [facility] HospitalNo Panel Informationon 02-28-2024 Interpretation and review of laboratory resultsAbnormalBon [facility]CT [facility] Bon [facility]CT [facility] HospitalPROTHOMBIN TIMEon 55-29-8579IGS Coag (Bld) [Relative time]1.13 {INR}Normal0.85-1.13[facility] Comment on above:Result Comment: ---------INDICATION INR Reference Range DVT, PE, AF, AMI, tissue heart valve 2.0 to 3.0 Mechanical prosthetic valves 2.5 to 3.5Performed By: #### ANNE, LPBM2, CRBM2 #### [address] [facility] [address]Cwyubbu-QINiq 72-01-1525SBI Coag (PPP) [Relative time]1.13 {INR}0.85 - 1.13Bon [facility] TrumbullComment on above: ---------INDICATION INR Reference Range DVT, PE, AF, AMI, tissue heart valve 2.0 to 3.0 Mechanical prosthetic valves 2.5 to 3.5 Performed at [facility] [address] [place] [address] RETICULOCYTE PANELon 97-17-8900RYZ RETIC COUNT47.0 thou/et0Zbmypz53.0-115.0SaUniversity Medical Center of El PasoComment on above:Performed By: #### MMMP, LPBM2, CRBM2 #### [address] [place] [address]HXZ RETIC WSOELFKY84.5 %High2.3-13.4SGraham Regional Medical Center Comment on above:Performed By: #### JORGE RODRÍGUEZBM2, CRBM2 #### [address] [facility] [address]KBJAR KXRGIHLQEJ60.0 giKemkxt03.2-35.7[facility] Comment on above:Performed By: #### MMMP, LPBM2, CRBM2 #### [address] [facility] [address]EDEJYHEWQISFO1.1 %Normal0.5-2.0[facility] Medical CenterComment on above:Performed By: #### MMMP, JORGEBM2, CRBM2 #### [address] [facility] [address]Osxuaybstfxgeup 77-94-6964Syrqaiiiag Auto (Reticulocytes) [Entitic mass]29.0 pg28.2 - 35.7 pgHospital Corporation Of AmericaComment on above:Performed at [address] [address]Zogvgqcb reticulocytes/Total reticulocytes (Bld)18.5 %High2.3 - 13.4 %[facility]ospital Corporation Of AmericaInterpretation and review of laboratory resultsAbnormalHospital Corporation Of AmericaReticulocytes (Bld) [#/Vol]47.0 10*3/uLHospital Corporation Of America Reticulocytes/100 RBC (Bld)1.1 %0.5 - 2.0 %[facility]ide Health SystemSARS-COV-2 & INFLUENZA A/Bon 07-48-6677ELDLLEXAS A, RT-PCRNot detectedNormalNOT DETECTEDEnnis Regional Medical CenterComment on above:Performed By: #### CVFLU #### [facility] [address] [place] [address]AARMNCDVG B, RT-PCRNot detectedNormalNOT DETECTEDEnnis Regional Medical CenterComment on above:Performed By: #### CVFLU #### [address] [address]APTP-DbD-2 (COVID-19) RNA MARIKA+probe Ql (Unsp spec)Not detected NormalNOT DETECTEDEnnis Regional Medical CenterComment on above:Result Comment: Not Detected results do not preclude [...] influenza B in nasopharyngeal and nasal swab specimens.Performed By: #### CVFLU #### [facility] [address] [place] [address] 89324RFAO ACIDon 41-40-1526Tkrpo [Mass/Vol]7.6 mg/dLHigh3.7-7.0[facility] CenterComment on above:Performed By: #### MMMP, LPBM2, CRBM2 #### [facility] [facility] [address]Iiui Acidon 19-71-3930Scrdk [Mass/Vol]7.6 mg/dLHigh3.7 - 7.0 mg/dL Hospital Corporation Of AmericaComment on above:Performed at [facility] [address] [place] [address] 901[address]LVQHTYW B12 FOLATEon 74-26-7150Benlrdfwk (Vitamin B12) [Mass/Vol]734 pg/jHAaihcr210-155JwkvgGraham Regional Medical CenterComment on above:Performed By: #### CBCNEMO, SCAN1 #### [facility] [address] [address]JCBYMT5.1 ng/mLLow4.8-24.2SGraham Regional Medical CenterComment on above:Performed By: #### CBCWD, SCAN1 #### [facility] [address] [place] [address] 077[address]Hilfatt B12 & Folateon 36-03-6367Jxkagmwqn (Vitamin B12) [Mass/Vol]734 pg/mL211 - 911 pg/mLBon [facility] TrumbullFolate [Mass/Vol]4.1 ng/mLLow4.8 - 24.2 ng/mLBon [facility] TrumbullComment on above:Performed at [facility] [address] [address]Wxjmkgjwjydqax and review of laboratory resultsAbLewisGale Hospital MontgomeryBon [facility] aPTT Coag (Bld) [Time]on 21-34-6619sHOQ Coag (PPP) [Time]24.6 sBon [facility] - TrumbullComment on above:Therapeutic Heparin Reference Range= 60-95 seconds (corresponds to 0.3 to 0.7 u/mL Anti-Xa factor activity) Performed at [facility] [address] [address] Bon [facility] TrumbullVdhdur88-vlphxabtixlrdi D3 [Mass/Vol]on 03-57-5211Oqd [facility] TrumbullBLOOD SMEAR REVIEWon 99-13-3296QTOSKLTQICH REVIEWEDPTammi VIGIL. Hendrick Medical CenterComment on above:Result Comment: No schistocytes seenPerformed By: #### CRP, WSR #### [address] [address]QKOTH REVIEWED BY PATHOLOGISTsee belowHendrick Medical CenterComment on above:Result Comment: See BelowPerformed By: #### CRP, WSR #### [address] [address]O-HYFDJHRK PROTEINon 20-65-5276U-REACTIVE PROTEIN6.83 mg/dlHigh 0.00-1.00[facility] Medical CenterComup health system on above:Performed By: #### CRP, WSR #### [address] [address]U-Xllakgar Proteinon 95-04-9222HBS [Mass/Vol]6.83 mg/dlHigh0.00 - 1.00 mg/dlBon [facility] TrumbullComment on above:Performed at [facility] [address] [address]MJUBDXZ (IONIZED) * WBon 02-27-2024 CALCIUM (IONIZED) * WB1.11 mmol/LLow1.12-1.32[facility] Medical CenterComment on above:Performed By: #### CBCWD, SCAN1 #### [address] [address]GVDUQTICQL (URINE)on 34-21-8175Valjwlffty (U) [Mass/Vol]37.4 mg/dL NormalSaint Cascade Medical CenterComment on above:Performed By: #### DHRUV, WSR #### [facility] [address] [place] [address]GZC [Mass/Vol]on 47-97-3257Amqipzcdoazjpo and review of laboratory resultsAbnormMountain States Health AllianceCalcium, Ionized on 52-36-0100Jppyaoa.ionized ISE (Bld) [Moles/Vol]1.11 mmol/LLow1.12 - 1.32 mmol/LBon [facility] TrumbullComment on above:Performed at [facility] [address] [place] [address]Jgzanpo.ionized ISE (Bld) [Moles/Vol]on 15-11-7218Uwwbumjqgtuefg and review of laboratory resultsAbnoMadison Community HospitalCreatinine, Random Urineon 02-27-2024 Creatinine (U) [Mass/Vol]37.4 mg/dLBon [facility] TrumbullComment on above: Performed at [facility] [address] [place] [address]IWUV ABUSE SCREENon 46-94-6820SPITBJXKANX/METHAMPHNegativeNormalNEGATIVESaint Cascade Medical CenterComment on above:Performed By: #### DHRUV, WSR #### [facility] [address] [place] [address] 35822IHJZAZTWMWIElqrqhdrWsznugVLAFQKITOxofv [facility] Comment on above:Performed By: #### DHRUV, WSR #### [facility] [address] [place] [address]Vdxwdlqygvapimg Ql (U)NegativeNormalNEGATIVESaint Cascade Medical CenterComment on above:Performed By: #### DHRUV, WSR #### [facility] [address] [place] [address]Hmvxtrcfdxvf Screen Ql (U)PositiveNormalNEGATIVESaint Cascade Medical CenterComment on above:Performed By: #### DHRUV, WSR #### [facility] [address] [place] [address] 66[address]SUHPKFP METABOLITENegativeNormalNEGATIVESGraham Regional Medical CenterComment on above:Performed By: #### CRP, WSR #### [address] [address]WKWNEUYYAfimwimsFmagtcOAQPRLYDKhfdc Rita's Medical CenterComment on above:Result Comment: A Negative result for a drug abuse [...] request. These results are for medical use only.Performed By: #### DHRUV, WSR #### [address] [address]Rhxlobt Ql (U)NegativeNormalNEGATIVESGraham Regional Medical Center Comment on above:Performed By: #### CRP, WSR #### [address] [address]ZGOZCFTAQQdfhsqznIxujzqHVXVELVXOpeor Rita's Medical CenterComment on above:Performed By: #### CRP, WSR #### [facility] [address] [place] [address] 15[address]Vzblwwfgtdvxa Ql (U)NegativeNormalNEGATIVESGraham Regional Medical CenterComment on above:Performed By: #### DHRUV, WSR #### [address] [address]KOD 24 houron 16-35-7859ScwztcRm barkley MD 02/27/2024 11:51 AM LONG-TERM EEG-VIDEO MONITORING CLINICAL NEUROPHYSIOLOGY LABORATORY DEPARTMENT OF NEUROLOGY [facility] Patient: Ethan Donald Age: 33 y.o. Referring Physician: Dolores Reyes MD History: The patient is a 33 y.o. male who presented breakthrough seizure/encephalopathy. This long-term video-EEG monitoring study was performed to determine the nature of the patient's clinical events. The patient is on neuroactive medications. Ethan Hannah Donald Current Facility-Administered Medications Medication Dose Route Frequency Provider Last Rate Last Admin sodium chloride flush 0.9 % injection 10 mL 10 mL IntraVENous 2 times per day Jenny Gunter APRN - CNP 10 mL at 02/27/24 0815 sodium chloride flush 0.9 % injection 10 mL 10 mL IntraVENous PRN Jenny Gunter APRN - CNP 0.9 % sodium chloride infusion IntraVENous PRN [...] injection 40 mg 40 mg SubCUTAneous Daily Jenyn Gunter APRN - CNP 40 mg at 02/27/24 0814 ondansetron (ZOFRAN-ODT) disintegrating tablet 4 mg 4 mg Oral Q8H PRN Jenny Gunter APRN - CNP Or ondansetron (ZOFRAN) injection 4 mg 4 mg IntraVENous Q6H PRN Jenny Gunter APRN - SANJU 4 mg at 02/27/24 0815 polyethylene glycol (GLYCOLAX) packet 17 g 17 g Oral Daily PRN Jenny Gunter APRN - CNP acetaminophen (TYLENOL) tablet 650 mg 650 mg Oral Q6H PRN Jenny Gunter APRN - [employer] 650 mg at 02/27/24 0128 Or acetaminophen [...] revealed no abnormalities. RM DAVIS MD Diplomate, [place] [employer] Psychiatry and Neurology Diplomate, [place] Board of Clinical Neurophysiology Diplomate, [place] Board of Epilepsy Please note this is a preliminary report and updated daily. The final report will have a summary of behavior and electrographic findings with clinical correlation. [facility] STR MUSEEEG 24 hourOrdered By: Rm Davis on 50-30-2465Yrs [facility] Medical CenterCoapt Systems [facility] Work Phone: ekg Rhythm Stripon 97-83-7356UPIPIVJWyuAtrium Health Steele Creek 78PACEARTHospital Corporation Of AmericaESR Westergren method (Bld) [Velocity]on 43-86-7069DNR (Bld) [Velocity]9 mm/hBon [facility] Comment on above:Performed at [facility] [address] [place] [address] 515[address]Bfi [facility] - TrumbullFIBRINOGENon 63-96-6568NZAMWLHIKO507 mg/100mlNormal 155-475En[facility] Medical CenterComment on above:Performed By: #### CBCNEMO, SCAN1 #### [facility] [address] [place] [address]Brsvzibbfbcw 90-52-0626Iwuifulrvo Coag (PPP) [Mass/Vol]402 mg/dL Bon [facility] TrumbullComment on above:Performed at [facility] [address] [place] [address] 909[address]Xsyvxhvvjj Coag (PPP) [Mass/Vol]on 47-82-1550Gqw [facility] TrumbullNo Panel Informationon 77-58-6439Wfe [facility] OSMOLALITY URINEon 87-24-7694UJKDYBVZTR URINEsee oidfiHyvpol679-426QlploEnnis Regional Medical CenterComment on above:Result Comment: Test was sent to an outside laboratory. Please refer to 'Reference' test.Performed By: #### CRP, WSR #### [facility] [address] [address]Axgszowajh (U) [Osmolality]on 73-67-6411Ggk [facility] Osmolality, urineon 77-63-5294Zwkljempxl (U) [Osmolality]see belowBon [facility] TrumbullComup health system on above:Test was sent to an outside laboratory. Please refer to 'Reference' test. Performed at [facility] [address] [place] [address] PHOSPHORUSon 28-50-0618Ggdfncmnv [Mass/Vol]4.0 mg/dLNormal2.4-4.7[facility] CenterComment on above:Performed By: #### CBCNEMO, SCAN1 #### [facility] [address] [place] [address] 646[address]NBDLTYXVU (URINE)on 96-21-3980FVEGLFVWH (URINE)9.5 meq/lNormal [facility] CenterComment on above:Performed By: #### CRP, WSR #### [facility] [address] [place] [address] 250[address]Jscv Review, Smearon 41-27-7040IHBFOHQF BYEstefani FUNESStafford Hospital on above:No schistocytes seen Performed at [facility] [address] [place] [address] Smear Reviewsee belowHospital Corporation Of AmericaComment on above:See BelowInova Fair Oaks Hospital HealthPhosphate [Mass/Vol]on 03-74-9636Kxi [facility] Phosphoruson 32-91-0292Ncjyqxzwm [Mass/Vol]4.0 mg/dL2.4 - 4.7 mg/dLBon [facility] - TrumbullComment on above:Performed at [facility] [address] [place] [address] 096[address]Isnicgwot, urine, randomon 60-38-9582Rxlyfjqke (U) [Moles/Vol] 9.5 mmol/LBon [facility] TrumbullComment on above:Performed at [facility] [address] [place] [address] 46665VDNXQDFAD SPECIMENon 02-27-2024 REFERENCE VIXDD89-0206 mOsmNormalSGraham Regional Medical CenterTEST RESULT (WITH UNITS)182 mOsmNormUniversity HospitalORIGINAL SAMPLE [id number] NormalSaint Cascade Medical CenterREFERENCE LOCATIONsee belowHendrick Medical CenterComup health system on above:Result Comment: Performed at [facility] [address] [place] [address]MXLQ(S) BEING PERFORMEDURINE OSMONormal [facility] CenterReference lab sampleon 10-20-4975FZXKRQDA SAMPLE [id number] SecCentral Louisiana Surgical Hospital HealthREFERENCE LOCATIONsee belowHospital Corporation Of AmericaComment on above:Performed at [facility] [address] [place] [address] Reference Ckyvc41-5654 mOsmBon [facility] HealthTEST RESULTS WITH UFNDI392 mOsmBon SecWhidbeyHealth Medical Centery HealthTEST(S) BEING PERFORMEDURINE OSMOBon SecWhidbeyHealth Medical Centery HealthBon SecWhidbeyHealth Medical Centery HealthSED RATEon 83-70-2165XBM RATE9 mm/hrNormal0-10 [facility] CenterComment on above:Performed By: #### DHRUV, WSR #### [facility] [address] [place] [address] 744[address]OSXVMX (URINE)on 20-74-6161Lmnsjq (U) [Moles/Vol]mmol/LNormalEnnis Regional Medical CenterComment on above:Performed By: #### DHRUV, WSR #### [facility] [address] [place] [address] 86[address]Tioxqb, urine, randomon 07-81-3387Gexhuk (U) [Moles/Vol]mmol/L meq/lBon [facility] TrumbullComment on above:Performed at [facility] [address] [place] [address] 27804QQWYAWPPPM W/ MICROon 74-17-6749MOPXXLJFYXWI SEENNormalFEW/NONE [facility] – MarshallComment on above:Performed By: #### UAWM2 #### [facility] [address] [place] [address] 626[address]DOEWHNFYM SEENNormalNONE [facility] – MarshallComment on above:Performed By: #### UAWM2 #### [facility] [address] [place] [address]PQLZQ 2NONE SEENNoBrownfield Regional Medical CenterComment on above: Performed By: #### UAWM2 #### [facility] [address] [place] [address] 7[address]Hqpriwoe LM Nom (Urine sed)NONE SEENNormalNONE [facility] – MarshallComment on above:Performed By: #### UAWM2 #### [facility] [address] [place] [address] 43792KEBQTBTEGVQIRA SEENNormal3-5/hpfEnnis Regional Medical CenterComment on above:Performed By: #### UAWM2 #### [facility] [address] [place] [address] 53800QKFTFNXZRFSEO 2NONE SEENNormUniversity HospitalComment on above:Performed By: #### UAWM2 #### [facility] [address] [place] [address] 48672WPBLQFV SEENNormal0-2/[facility] Hospital of San AntonioComment on above:Performed By: #### UAWM2 #### [facility] [address] [place] [address] 62517QBFOD EPITHELIALNONE SEENNormilNONE [facility] – MarshallComment on above:Performed By: #### UAWM2 #### [facility] [address] [place] [address] 09619DZWJXLA SEENNormal0-4/[facility] of San AntonioComment on above:Performed By: #### UAWM2 #### [facility] [address] [place] [address] 79977GFDYJZBGL SEENNormalNONE [facility] – MarshallComment on above:Performed By: #### UAWM2 #### [address] [address]Ixltnwkil Ql (U)NegativeNormalNEGMemorial Hermann Memorial City Medical Center Comment on above:Performed By: #### UAWM2 #### [facility] [address] [place] [address] 13868VLKYQDRIILQJJGUqzqiiPWU-PS.CLOUDEnnis Regional Medical CenterComment on above:Performed By: #### UAWM2 #### [address] [address]Einxz (U)YELLOWNormalYELLOW-[facility] Comment on above:Performed By: #### UAWM2 #### [facility] [address] [place] [address] 38654Yynjgzp Ql (U)NegativeNormalNEGMemorial Hermann Memorial City Medical Center Comment on above:Performed By: #### UAWM2 #### [facility] [address] [place] [address] 48452Eaxmtkwspl Ql (U)NegativeNormalNEGMemorial Hermann Memorial City Medical Center Comment on above:Performed By: #### UAWM2 #### [facility] [address] [place] [address]Amgqftf Ql (U)NegativeNormalNEGMemorial Hermann Memorial City Medical Center Comment on above:Performed By: #### UAWM2 #### [facility] [address] [place] [address] 73889JRXOVZJNVWFovaptxhKnxnccBVQYQPMBFqsxx [facility]'s Medical CenterComment on above:Performed By: #### UAWM2 #### [facility] [address] [place] [address] 128[address]Wqwszug Ql (U)NegativeNormalNEGATIVESGraham Regional Medical Center Comment on above:Performed By: #### UAWM2 #### [facility] [address] [place] [address] 23201sF (U)6.5 [pH]Normal5.0 - 9.0En[facility] Medical CenterComment on above:Performed By: #### UAWM2 #### [facility] [address] [place] [address] 07357Cjklxrs Ql (U)NegativeNormalNEGATIVESGraham Regional Medical Center Comment on above:Performed By: #### UAWM2 #### [address] [address]Thckchev gravity (U) [Rel density]1.646Ccuxcs3.002-1.030[facility] Medical CenterComment on above:Performed By: #### UAWM2 #### [address] [address]Wxlrssaaroxi Qn (U)1.0 {Butch'U}/dLNormal0.0 - 1.0[facility] Medical CenterComment on above:Performed By: #### UAWM2 #### [address] [address]Mokqkabosr dipstick W Reflex Microscopic panel (U)on 02-27-2024 Bacteria, UANONE SEENFEW/NONE SEENBon Secours Mercy HealthBilirubin Ql (U) NegativeNEGATIVEBon Secours Mercy HealthCasts LM.LPF (Urine sed) [#/Area]NONE SEEN/lpfBon Secours Mercy HealthCharacter (U)CLEARCLR-SL.CLOUDBon Secours Mercy HealthCharcoal LM Ql (Urine sed)NONE SEENBon Secours Providence Hospitaly HealthComment on above:Performed at [facility] [address] [address]Iaoeh (U)YELLOWYELLOW-STRAWBon Secours Mercy HealthCrystals LM Ql (Urine sed)NONE SEEN NONE SEENBon Secours Mercy HealthEpithelial Cells, UANONE SEEN3-5/hpf /hpfBon Secours Mercy HealthEpithelial cells.renal LM.HPF (Urine sed) [#/Area]NONE SEEN NONE SEENBon Secours Mercy HealthFungi.yeastlike LM Ql (Urine sed)NONE SEENNONE SEENBon Secours Mercy HealthGlucose Auto test strip Ql (U)NegativeNEGATIVE mg/dl [facility] HealthHemoglobin Auto test strip Ql (U)NegativeNEGATIVEBon Secours Mercy HealthKetones Auto test strip Ql (U)NegativeNEGATIVEBon Secours Mercy HealthLeukocyte esterase Auto test strip Ql (U)NegativeNEGATIVEBon Secours Mercy HealthNitrite Auto test strip Ql (U)NegativeNEGATIVEBon Secours Mercy HealthpH (U)6.5 [pH]5.0 - 9.0[facility] HealthProtein (U) [Mass/Vol] NegativeNEGATIVE mg/dlBon Secours Mercy HealthRBC LM.HPF (Urine sed) [#/Area] NONE SEEN0-2/hpf /hpfBon Secours Mercy HealthSpecific [place], UA1.0071.002 - 1.030Bon [facility] HealthUrobilinogen, Urine1.0Bon [facility] HealthWBC LM.HPF (Urine sed) [#/Area]NONE SEEN0-4/hpf /hpfBon Secours Mercy HealthBon Secours Mercy HealthUrine Drug Screenon 20-93-8781Eumngwqiovhz Screen Ql (U) NegativeNEGATIVEBon Secours Mercy HealthBarbiturates Screen Ql (U)Negative NEGATIVEBon Secours Mercy HealthBenzodiazepines Ql (U)NegativeNEGATIVEBon Secours Mercy HealthBenzoylecgonine Screen Ql (U)NegativeNEGATIVEBon Secours Mercy HealthCannabinoids Screen Ql (U)PositiveNEGATIVEBon Secours Mercy Health FentanylNegativeNEGATIVEBon Secours Mercy HealthComment on above:A Negative result for a drug abuse screen [...] are for medical use only. Performed at [facility] [address] [place] [address] Opiates Screen Ql (U)NegativeNEGATIVEBon Secours Mercy HealthOxycodoneNegative NEGATIVEBon Secours Mercy HealthPhencyclidine Ql (U)NegativeNEGATIVEBon Secours Mercy HealthBon Secours Providence Hospitaly HealthVITAMIN D TOTAL 25 ([place])on 16-67-7555GRJVKQO D TOTAL 25 ([place])32 ng/goWcwiwe94-979ElwtyUniversity Medical Center of El PasoComment on above: Result Comment: Vitamin D Status Range Deficiency <20 ng/ml Insuffiency 20-30 ng/ml Sufficiency 30-100 ng/ml Toxicity >100 ng/mlPerformed By: #### CVFLU #### [address] [address]Pnfqdqn D 25 Hydroxyon 33-54-978791653744-rpriusxdnoayiz D3 [Mass/Vol]32 ng/mL30 - 100 ng/mlHospital Corporation Of AmericaComment on above:Vitamin D Status Range Deficiency <20 ng/ml Insuffiency 20-30 ng/ml Sufficiency 30-100 ng/ml Toxicity >100 ng/ml Performed at [facility] [address] [address] Basic Metabolic Profon 86-63-4607Cgaxx gap [Moles/Vol]15 mmol/LNormal9-16W[facility] Community HospitalComment on above:Performed By: #### MARY RAMIREZ, BMP #### [facility] [address] [place] [address] [address] [place] [address] Skinning Machine Feeder: WOOD Hickey/CRE Kpuog67Rnviwt9-66Pyitf [facility] Comment on above:Performed By: #### TROPI, CDP, BMP #### [facility] [address] [place] [address] Dr[address] [place] [address] Skinning Machine Feeder: EDENILSON Hickeyalcium [Mass/Vol]9.3 mg/dLNormal8.6-10.4W[facility] Community HospitalComment on above:Performed By: #### MARY RAMIREZ, BMP #### [address] [place], [place] [address] Skinning Machine Feeder: EDENILSON Hickeyhloride [Moles/Vol]97 mmol/YXuk59-673UsjiwWooster Community HospitalComment on above:Performed By: #### MARY RAMIREZ, BMP #### [address] [place], [place] [address] Skinning Machine Feeder: EDENILSON HickeyO2 [Moles/Vol]23 mmol/JKdabyd75-77GmmwjWooster Community HospitalComment on above:Performed By: #### MARY RAMIREZ, BMP #### [address] [place], [place] [address] Skinning Machine Feeder: EDENILSON Hickeyreatinine [Mass/Vol]1.2 mg/dLNormal0.70-1.20[facility] HospitalComment on above:Performed By: #### MARY RAMIREZ, BMP #### [address] [place], [place] [address] Skinning Machine Feeder: Ramo Jesus MDGFR/1.73 sq M.predicted among non-blacks MDRD (S/P/Bld) [Vol rate/Area]80 mL/min/{1.73_m2}Normal>60[facility] Comment on above:Result Comment: These results are not intended for [...] or following therapy that affects renal tubular secretion.Performed By: #### MARY RAMIREZ, BMP #### [address] [place] [address] Skinning Machine Feeder: Ramo Jesus MDGlucose [Mass/Vol]100 mg/sPXoum53-90Eahto [facility] City HospitalComment on above:Performed By: #### MARY RAMIREZ, BMP #### [address] [place] [address] Skinning Machine Feeder: TETE Hickeyotassium [Moles/Vol]3.3 mmol/LLow3.7-5.3[facility] City HospitalComment on above:Performed By: #### MARY RAMIREZ, BMP #### [address] [place] [id number] Skinning Machine Feeder: RUBEN Hickeyodium [Moles/Vol]135 mmol/HGqv630-164Xwapl Davis City HospitalComment on above:Performed By: #### MARY RAMIREZ, BMP #### [address] [place], [facility] [address] Skinning Machine Feeder: Ramo Jesus MDUrea nitrogen [Mass/Vol]13 mg/dLNormal6-20[facility] HospitalComment on above:Performed By: #### MARY RAMIREZ, BMP #### [address] [place] [id number] Skinning Machine Feeder: EDENILSON Hickey-Reactive Proteinon 83-55-2984DZR [Mass/Vol]81.9 mg/LHigh0.0-5.0MerSouthern [place] Medical Center HospitalComment on above:Performed By: #### SED, CRP #### [address] [place], [place] [address] Skinning Machine Feeder: EDENILSON HickeyBC with Diffon 65-10-3619Slp. Basophil0.04 k/uL Normal0.0-0.2[facility] City HospitalComment on above:Performed By: #### MARY RAMIREZ, BMP ####[address] [place] [address] Lab Director: MDAbs. RupertoImm.Granulocyte0.04 k/uL Normal0.00-0.30[facility] HospitalComment on above:Performed By: #### TROPI, CDP, BMP ####[address] [place] [address] Lab Director: Bernarda Hickey.Neutrophil (Seg)2.58 k/uL Normal1.50-8.10[facility] HospitalComment on above:Performed By: #### TROPI, CDP, BMP ####[address] [place], [place] [address])[phone] Director: Ramo Jesus MDBasophils/100 WBC (Bld)1 %Normal 0-2[facility] City HospitalComment on above:Performed By: #### TROPAmee CDP, BMP ####[address] [place], [place] [address])[phone] Director: Ramo Jesus MDEosinophils (Bld) [#/Vol]0.08 10*3/uLNormal 0.00-0.44[facility] HospitalComment on above:Performed By: #### TROPI, CDP, BMP ####[address] [place], [place] [address])[phone] Director: Ramo Jesus MDEosinophils/100 WBC (Bld)2 % Normal1-4[facility] HospitalComment on above:Performed By: #### TROPAmee, CDP, BMP ####[address] [place] [address] Lab Director: Sneha Hickeymature granulocytes/100 WBC (Bld)1 %Dvwo5KvjywOhio State Health System HospitalComment on above:Performed By: #### TROPI, CDP, BMP ####[address] [place] [address] Lab Director: Ramo Jesus MDLymphocytes (Bld) [#/Vol]1.03 10*3/uLLow1.10-3.70[facility] HospitalComment on above:Performed By: #### TROPI, CDP, BMP ####[address] , [place] [phone] Director: Ramo Jesus MDLymphocytes/100 WBC (Bld)25 % Ajzkqo98-77Ofvta [facility]iffin HospitalComment on above:Performed By: #### TROPI, CDP, BMP ####[address] [place] [address] Lab Director: GERARDO Hickeyonocytes (Bld) [#/Vol]0.33 10*3/uLNormal0.10-1.20[facility] HospitalComment on above:Performed By: #### TROPI, CDP, BMP ####[address] [place] [address] Lab Director: GERARDO Hickeyonocytes/100 WBC (Bld)8 % Normal3-12[facility] Community HospitalComment on above:Performed By: #### TROPI, CDP, BMP ####[address] [place] [address] Lab Director: GERARDO Hickeyorphology Gianni (Bld) [Interp] NormalNormalOhio State Health System HospitalComment on above:Performed By: #### TROPI, CDP, BMP ####[address] [place] [address] Lab Director: Ramo Jesus MDNeutrophil (Seg)63 %Iluzcn90-23 [facility] HospitalComment on above:Performed By: #### TROPI, CDP, BMP ####[address] [place] [phone] Director: Jessica Hickeytelet Fluoresc.117 k/tNHim840-736Kiigk [facility]iffin HospitalComment on above:Performed By: #### MARY RAMIREZ, BMP ####[address] [place] [address] Lab Director: TETE HickeyLT, Immature Fract.3.6 %Normal1.1-10.3[facility] City HospitalComment on above:Performed By: #### MARY RAMIREZ, BMP ####[address] [place] [address] Lab Director: Ramo Jesus MDErythrocyte distribution width (RBC) [Ratio]12.0 %Normal 11.8-14.4[facility] HospitalComment on above:Performed By: #### MARY RAMIREZ, BMP ####[address] , [facility] [address] Lab Director: Ramo Jesus MDHematocrit (Bld) [Volume fraction]41.0 %Rfociw56.7-50.3[facility] HospitalComment on above:Performed By: #### MARY RAMIREZ, BMP ####[address] [place] [address] Lab Director: Ramo Jesus MDHemoglobin (Bld) [Mass/Vol]14.7 g/mUIivofj27.0-17.0[facility] HospitalComment on above: Performed By: #### TROPAmee CDP, BMP ####[address] [place] [address] Lab Director: GERARDO HickeyCH (RBC) [Entitic mass]31.1 xwQpcylx25.2-33.5MerSouthern [facility] Medical Center HospitalComment on above: Performed By: #### MARY RAMIREZ, BMP ####[address] [place] [address] Lab Director: VI HickeyC (RBC) [Mass/Vol]35.9 g/dXWbiq17.4-34.8[facility] HospitalComment on above: Performed By: #### TROPI, CDP, BMP ####[address] [place] [address] Lab Director: GERARDO HickeyCV (RBC) [Entitic vol]86.9 dLWxijsr79.6-102.9[facility] HospitalComment on above: Performed By: #### TROPAmee, CDP, BMP ####[address] [place] [address] Lab Director: SID Hickey Automated0.0 per 100 WBCNormal0.0[facility] HospitalComment on above:Performed By: #### JAMES CDP, BMP ####[address] [place] [address] Lab Director: Omar Hickey CountSee Reflexed IPF OyhrcqJgfdaq050-916Jflsp [facility]iffin HospitalComment on above:Performed By: #### JAMES, CDP, BMP ####[address] [place] [address] Lab Director: DALTON Hickey (Bld) [#/Vol] 4.72 10*6/uLNormal4.21-5.77[facility] HospitalComment on above:Performed By: #### TROPI, CDP, BMP ####[address] [place] [address] Lab Director: RAMSEY Hickey (Bld) [#/Vol] 4.1 10*3/uLNormal3.5-11.3MAdena Health System HospitalComment on above:Performed By: #### TROPI, CDP, BMP ####[address] [place] [address] Lab Director: Ramo Jesus, MDCT HEAD WO CONTRASTon 12-21-1678SG HEAD WO CONTRASTEXAMINATION: CTA OF THE HEAD AND NECK WITH [...] Signed by: Sam Rockwell DO 02/26/24 Final resultNormalMercy Mauricio AlvarezCTJustus HEAD NECK W CONTRASTon 11-84-2890VGU HEAD NECK W CONTRASTEXAMINATION: CTA OF THE HEAD AND NECK WITH [...] Signed by: Sam Rockwell DO 02/26/24 Final resultNormalMerUniversity of [facility] Health Center/John Dempsey HospitalGlucose, Whole Bloodon 29-77-0887Ffwwyqk [Mass/Vol]105 mg/sZWrak44-848KuuaoWooster Community HospitalLiver Profileon 02-26-2024 Albumin [Mass/Vol]4.1 g/dLNormal3.5-5.2MercConnecticut Children's Medical CenterComment on above: Performed By: #### LIVP ####[address] [place] [address] Lab Director: Ramo Jesus MDAlbumin/Glob Ratio 1.8Ttrvni4.0-2.5W[facility] Community HospitalComment on above:Performed By: #### LIVP ####[address] [place] [phone] Director: Zahra Hickeykaline Phos97 U/WZwjuff49-920IlnguWooster Community HospitalComment on above:Performed By: #### LIVP ####[address] [place] [address] Lab Director: Ramo Jesus MDALT [Catalytic activity/Vol]45 U/ZMpxktf26-54RpxszWooster Community Hospital Comment on above:Performed By: #### LIVP ####[address] [place] [address] Lab Director: Ramo Jesus MDAST [Catalytic activity/Vol]54 U/WXwvr82-63MgmnwWooster Community HospitalComment on above: Performed By: #### LIVP ####[address] [place] [address] Lab Director: Ramo Jesus MDBilirubin [Mass/Vol]1.1 mg/dLNormal0.00-1.20[facility] Community HospitalComment on above: Performed By: #### LIVP ####[address] , [place] [address] [facility] Director: Ramo Jesus MDBilirubin, Indirect0.6 mg/dLNormal0.0-1.0[facility] Community HospitalComment on above:Performed By: #### LIVP ####[address] , [place] [address] [facility] Director: You Hickeyirubin.indirect [Mass/Vol]0.5 mg/dLHigh0.00-0.30[facility] Community HospitalComment on above:Performed By: #### LIVP ####[address] [place] [address] [facility] Director: Ramo Jesus MDProtein [Mass/Vol]7.2 g/dLNormal6.6-8.7 [facility] HospitalComment on above:Performed By: #### LIVP ####[address] , [place] [address] [facility] Director: TETE Hickeyrolactinon 73-05-9509Womgidudg9.70 ng/mLNormal4.04-15.2[facility] HospitalComment on above:Result Comment: The presence of macroprolactin may cause interference in female patients with various endocrinological diseases or during .Performed By: #### PROL #### [facility] [address], [place] 6[address] Skinning Machine Feeder: RUBEN Brownedimentation Rateon 86-75-7656Rnkccnmktycff Rate17 mm/HrHigh0-15[facility] HospitalComment on above:Performed By: #### SED, CRP #### [address] [place] [address] Skinning Machine Feeder: Ramo Jesus MDTroponinon 06-91-4317Nxeanydz, High Sens9 ng/L Normal0-22[facility] Community HospitalComment on above:Result Comment: High Sensitivity Troponin values cannot be compared with other Troponin methodologies.Performed By: #### TROPI, CDP, BMP #### [facility] [address] [place] [address] Skinning Machine Feeder: FREDI Hickey w/Reflex Cultureon 11-19-8085Wwrpbgljd, SemiQt,UrNegativeNormalNEGOhio State Health System HospitalComment on above:Performed By: #### UAX, UMICAO #### [facility] [address] [place] [address] [place] [address] Skinning Machine Feeder: Elijah Hickey, UrineNegativeMercy Health St. Anne Hospital Comment on above:Performed By: #### UAX, UMICAO #### [facility] [address] [place] [address] [place] [address] Skinning Machine Feeder: EDENILSON Hickeylarity ()ClearNormalCLEARWooster Community Hospital Comment on above:Performed By: #### UAX, UMICAO #### [address] [place] [address] Skinning Machine Feeder: EDENILSON Hickeyolor (U)YellowNoalYSelect Medical Specialty Hospital - [facility] Comment on above:Performed By: #### UAX, UMICAO #### [facility] [address] [place] [address] Skinning Machine Feeder: Ramo Jesus MDGlucose Ql (U)NegativeNormalNEGOhio State Health System HospitalComment on above:Performed By: #### UAX, UMICAO #### [facility] [address] [place] [address] [address] [place], [place] [address] Skinning Machine Feeder: Ramo Jesus MDKetones Ql (U)2+ mg/dLAbnormalNEGOhio State Health System HospitalComment on above:Performed By: #### UAX, UMICAO #### [facility] [address] [place] [address] [place] [address] Skinning Machine Feeder: Ramo Jesus MDLeukocyte esterase Test strip Ql (U)NegativeNormal NEGWooster Community HospitalComment on above:Performed By: #### UAX, UMICAO #### [address] [place], [place] [address] Skinning Machine Feeder: Ramo Jesus MDNitrite,UrNegativeNormalNEGWooster Community Hospital Comment on above:Performed By: #### UAX, UMICAO #### [address] [place] [address] Skinning Machine Feeder: TETE Hickey,Ur6.5Jjelfh0.0-9.0[facility] HospitalComment on above:Performed By: #### UAX, UMICAO #### [address] [place] [address] Skinning Machine Feeder: TETE Hickeyrotein Ql (U)NegativeNormalNEGWooster Community HospitalComment on above:Performed By: #### UAX, UMICAO #### [address] [place] [address] Skinning Machine Feeder: RUBEN Hickeypec. [place],Ur1.709Odigjb1.010-1.020[facility] HospitalComment on above:Performed By: #### UAX, UMICAO #### [facility] [address] [place] [address] [place] [address] Skinning Machine Feeder: Ramo Jesus MDUrobilinogen,UrNormalNormal0.0-1.0[facility] HospitalComment on above:Performed By: #### UAX, UMICAO #### [address] [place], [place] [address]83 Skinning Machine Feeder: Ramo Jesus MDUrinalysis,Microon 18-71-7842WknyujxlCUCOUEyjfzazv The Jewish HospitalComment on above:Performed By: #### UAX, ROSANNAICAO #### [facility] [address] [place], [place] [address] Skinning Machine Feeder: Ramo Jesus MDEpithelial cells LM Ql (Urine sed)0 TO 7Yiaxjq6-8 [facility] HospitalComment on above:Performed By: #### UAX, UMICAO #### [facility] [address] [place] [address] Skinning Machine Feeder: Mich Hickey RBC's0 TO 3Sopuqn7-7KvxabBellevue Hospital Comment on above:Performed By: #### UAX, ROSANNAICAO #### [facility] [address] [place], [place] [address] Skinning Machine Feeder: Mich Hickey WBC's0 TO 1Djkphh1-3LnciyWooster Community Hospital Comment on above:Performed By: #### UAX, ROSANNAICAO #### [facility] [address] [place] [address] Skinning Machine Feeder: CASH Hickey CHEST PORTABLEon 24-71-4636XV CHEST PORTABLE EXAMINATION: ONE XRAY VIEW OF THE CHEST 02/26/2024 1:06 pm COMPARISON: None. HISTORY: ORDERING SYSTEM PROVIDED HISTORY: syncope TECHNOLOGIST PROVIDED HISTORY: syncope 33-year-old male with syncope FINDINGS: AP portable view of the chest monitor technician leads overlie the chest Trachea midline. No pneumothorax. No acute focal airspace consolidation or pleural effusions. Cardiac and mediastinal contours within normal limits. No acute osseous abnormality. IMPRESSION: No acute focal airspace consolidation or effusions. Interpreted by: Rubio Suarez MD Signed by: Rubio Saurez MD 02/26/24 Final resultNormalWooster Community HospitalGROUP A STREP CULTUREon 08-11-2022S. pyogenes Ag Ql (Unsp spec)Culture Observations: NEGATIVE FOR GROUP A STREPTOCOCCUS.NormalThe Morris HospitalComment on above: Performed By: #### WESRSHAGGY OvertonTCX #### [facility] [address] [place] [address] Dr. Pratibha StevensonSTNITISH SCREENon 93-63-8939WVZVC SCREEN ANegativeNormalNEGATIVEThe [facility] Medical CenterComment on above:Performed By: #### SSCRN, GRASTCX #### [facility] [address] [place] [address] Dr. Pratibha StevensonAMYLASEon 42-75-3840Xqqhjlh [Catalytic activity/Vol]50 U/LNormal 25-115The [facility] Medical CenterComment on above:Performed By: #### ERUR #### [facility] [address] [place] [address] Dr. Pratibha Bobo AUTO DIFFon 16-84-4799DIAL #0.1 103/ulNormal0.0-0.1The [facility] Medical CenterComment on above:Performed By: #### LACT #### [facility] [address] [place] [address] Dr. Pratibha StevensonBasophils/100 WBC (Bld)1.0 %Normal0.2-2.0[facility] Comment on above:Performed By: #### LACT #### [facility] [address] [place] [address] Dr. Pratibha Vaca #0.1 103/ulNormal0.0-0.7The [facility] Medical CenterComment on above: Performed By: #### LACT #### [facility] [address] [place] [address] Dr. Pratibha Parksosinophils/100 WBC (Bld)1.7 %Normal0.9-7.0[facility] Comment on above:Performed By: #### LACT #### [facility] [address] [place] [address] Dr. Pratibha Parksrythrocyte distribution width (RBC) [Ratio]12.1 %Fxifyn26.0-15.0 The [facility] Medical CenterComment on above:Performed By: #### LACT #### [facility] [address] [place] [address] Dr. Yilan ChangHematocrit (Bld) [Volume fraction]45.9 %Aoblvr81.0-54.0The [facility] Medical CenterComment on above:Performed By: #### LACT #### [facility] [address] [place] [address] Dr. Pratibha StevensonHemoglobin (Bld) [Mass/Vol]15.6 g/pMRnziuw78.0-18.0The Morris HospitalComment on above:Performed By: #### LACT #### [facility] [address] [place] [address] Dr. Pratibha StevensonIG #0.01 10e3/ulNormal0.00-0.03The [facility] Medical CenterComment on above:Performed By: #### LACT #### [facility] [address] [place] [address] Dr. Pratibha StevensonIG %0.1 %Normal0.0-0.5The [facility] Medical CenterComment on above: Performed By: #### LACT #### [facility] [address] [place] [address] Dr. Pratibha Mendez #2.0 103/ulNormal1.2-3.8The [facility] Medical CenterComment on above:Performed By: #### LACT #### [facility] [address] [place] [address] Dr. Pratibha Cunhamphocytes/100 WBC (Bld)28.8 %Bgojhl85.5-60.0The [facility] CenterComment on above:Performed By: #### LACT #### [facility] [address] [place] [address] Dr. Pratibha StevensonMANUAL DIFF REQNONormalThe [facility] Medical CenterComment on above: Performed By: #### LACT #### [facility] [address] [place] [address] Dr. Pratibha Knox (RBC) [Entitic mass]31.3 vlDgvymi41.9-34.0The [facility] CenterComment on above:Performed By: #### LACT #### [facility] [address] [place] [address] Dr. Pratibha Ernst (RBC) [Mass/Vol]34.0 g/wUTfashd19.9-35.2The [facility] Medical CenterComment on above:Performed By: #### LACT #### [facility] [address] [place] [address] Dr. Pratibha Ernst (RBC) [Entitic vol]92.2 jENgczwq10.0-94.0The [facility] Medical CenterComment on above:Performed By: #### LACT #### [facility] [address] [place] [address] Dr. Pratibha Victoria #0.3 103/ulNormal0.3-0.8The [facility] Medical CenterComment on above:Performed By: #### LACT #### [facility] [address] [place] [address] Dr. Pratibha Valdezocytes/100 WBC (Bld)4.3 %Normal1.7-12.0The [facility] Comment on above:Performed By: #### LACT #### [facility] [address] [place] [address] Dr. Pratibha Boucher #4.5 103/ulNormal1.4-6.5The [facility] Medical CenterComment on above:Performed By: #### LACT #### [facility] [address] [place] [address] Dr. Pratibha Stevensutrophils/100 WBC (Bld)64.1 %Ghxjai43.0-75.0The [facility] Medical CenterComment on above:Performed By: #### LACT #### [facility] [address] [place] [address] Dr. Pratibha Olmedolet mean volume (Bld) [Entitic vol]10.3 fLNormal9.5-13.5The [facility] Medical CenterComment on above:Performed By: #### LACT #### [facility] [address] [place] [address] Dr. Pratibha StevensonPLT219 103/adGaameo394-645Zfy [facility] CenterComment on above: Performed By: #### LACT #### [facility] [address] [place], [place] [address] Dr. Pratibha StevensonRBC4.98 106/ulNormal4.70-6.10The [facility] Medical CenterComment on above:Performed By: #### LACT #### [facility] [address] [place] [address] [address] Pratibha StevensonWBC7.1 103/ulNormal4.0-11.0The [facility] Medical CenterComment on above: Performed By: #### LACT #### [facility] [address] [place] [id number] Pratibha StevensonCT ABD/PELV W CONon 88-98-3296SP ABD/PELV W CONCT ABD/PELV W CON: 07/22/2022 10:36 PM EDT [...] Electronically authenticated by: YING WALTON Date: 2022-07-22 23:53Normal The [facility] CenterDRUG SCREEN RAPID (URINE)on 01-85-0745HEGRlfzviaaBuznak NEGATIVETrinity Health SystemComment on above:Performed By: #### ERUR #### [facility] [address] [place] [address] Dr. Pratibha StevensonBARNegativeNormalNEGATIVETrinity Health SystemComment on above: Performed By: #### ERUR #### [facility] [address] [place] [address] Dr. Pratibha StevensonBUPNegativeNormalNEGATIVETrinity Health SystemComment on above: Performed By: #### ERUR #### [facility] [address] [place] [address] Dr. Prtaibha StevensonBZONegativeNormalNEGATIVETrinity Health SystemComment on above: Performed By: #### ERUR #### [facility] [address] [place] [address] Dr. Pratibha StevensonCOCNegativeNormalNEGATIVETrinity Health SystemComment on above: Performed By: #### ERUR #### [facility] [address] [place] [address] Dr. Pratibha LinaresSelect Medical Cleveland Clinic Rehabilitation Hospital, Edwin ShawComment on above: Result Comment: AMP (Amphetamine): 500ng/mL, BAR (Barbituates): 200 ng/mL, BZO (Benzodiazepines): 150 ng/mL, BUP (Buprenorphine): 10 ng/mL, EMELY (Cocaine): 150 ng/mL, mAMP (Methamphetamine): 500 ng/mL, MTD (Methadone): 200 ng/mL, OPI (Opiates): 100 ng/mL, OXY (Oxycodone): 100 ng/mL, PCP (Phencyclidine): 25 ng/mL, PPX (Propoxyphene): 300 ng/mL, THC (Cannabinoids): 50 ng/mL, TCA (Trycyclic Antidepressants): 300 ng/mLPerformed By: #### ERUR #### [facility] [address] [place] [address] Dr. Pratibha StevensonDRUG CUT HEADERDRUG CLASS TEST SYSTEM CUT-OFF CONCENTRATIONS ARE FOLLOWS:NormalGalion Community Hospitalment on above:Performed By: #### ERUR #### [facility] [address] [place] [address] [address] Pratibha StevensonmAMPNegativeNormalNEGATIVETrinity Health SystemComment on above: Performed By: #### ERUR #### [facility] [address] [place] [address] Dr. Pratibha StevensonMTDNegativeNormalNEGATIVETrinity Health SystemComment on above: Performed By: #### ERUR #### [facility] [address] [place] [address] [address] Pratibha StevensonOPIPositiveAbnormalNEGATIVETrinity Health SystemComment on above: Performed By: #### ERUR #### [facility] [address] [place] [address] Dr. Pratibha StevensonOXYNegativeNormalNEGATIVETrinity Health SystemComment on above: Performed By: #### ERUR #### [facility] [address] [place] [address] Dr. Pratibha StevensonPCPNegativeNormalNEGATIVETrinity Health SystemComment on above: Performed By: #### ERUR #### [facility] [address] [place] [address] Dr. Pratibha StevensonPPXNegativeNormalNEGATIVETrinity Health SystemComup health system on above: Performed By: #### ERUR #### [facility] [address] [place] [address] Dr. Pratibha StevensonTCAPositiveAbnormalNEGATIVETrinity Health SystemComup health system on above: Performed By: #### ERUR #### [facility] [address] [place] [address] Dr. Pratibha StevensonTHCPositiveAbnormalNEGATIVETrinity Health SystemComup health system on above: Performed By: #### ERUR #### [facility] [address] [place] [address] Dr. Mckinnon ChangEUsama URINE PROFILEon 09-89-9266Xyxhihiyp Ql (U)NegativeNormal NEGATIVETrinity Health SystemComment on above:Performed By: #### ERUR #### [facility] [address] [place] [address] [address] Pratibha StevensonClarity (U)CLEARNormalCLEARTrinity Health SystemComment on above: Performed By: #### ERUR #### [facility] [address] [place] [address] [address] Pratibha Abreu (U)LT. YELLOWNormalYELLOWTrinity Health SystemComment on above:Performed By: #### ERUR #### [facility] [address] [place] [address] [address] Pratibha Phillips micrscopic examination will be performed if indicated. NormalThe [facility] CenterComment on above:Performed By: #### ERUR #### [facility] [address] [place] [address] Dr. Pratibha StevensonGlucose Ql (U)NegativeNormalNEGATIVETrinity Health SystemComment on above:Performed By: #### ERUR #### [facility] [address] [place] [address] Dr. Pratibha StevensonHemoglobin Ql (U)NegativeNormalNEGATIVEProvidence Hospital on above:Performed By: #### ERUR #### [facility] [address] [place] [address] Dr. Pratibha StevensonKetones Ql (U)NegativeNormalNEGATIVETrinity Health SystemComment on above:Performed By: #### ERUR #### [facility] [address] [place] [address] Dr. Pratibha StevensonLEUKOCYTESNegativeNormalNEGATIVETrinity Health SystemComment on above:Performed By: #### ERUR #### [facility] [address] [place] [address] Dr. Pratibha StevensonNitrite Ql (U)NegativeNormalNEGATIVETrinity Health SystemComment on above:Performed By: #### ERUR #### [facility] [address] [place] [address] Dr. Pratibha StevensonpH (U)5.5 [pH]Normal5-9Trinity Health SystemComment on above: Performed By: #### ERUR #### [facility] [address] [place] [address] Dr. Pratibha StevensonSPEC GRAVITY<=1.112Vtnyvvbd9.005-<=1.025The [facility] Comment on above:Performed By: #### ERUR #### [facility] [address] [place] [address] Dr. Pratibha Serrano PROTEINNegativeNormalNEGATIVE/ TRACEThe [facility] Comment on above:Performed By: #### ERUR #### [facility] [address] [place] [address] Dr. Pratibha Silveira MICRO INDNOT INDICATEDNoClermont County Hospitale [facility] CenterComment on above:Performed By: #### ERUR #### [facility] [address] [place] [address] Dr. Pratibha Hessbilinogen Qn (U)0.2 {Butch'U}/dLNormal0.2 - 1.0The [facility] CenterComment on above:Performed By: #### ERUR #### [facility] [address] [place] [address] Dr. Pratibha StevensonLIPASEon [id number] [Catalytic activity/Vol]126.0 U/LNormal 73.0-393.0The [facility] CenterComment on above:Performed By: #### ERUR #### [facility] [address] [place] [address] Dr. Pratibha StevensonPROF 14(COMP METB)on 97-24-0491Ctkwgqp [Mass/Vol]4.2 g/dLNormal 3.4-5.0The [facility] CenterComment on above:Performed By: #### ERUR #### [facility] [address] [place] [address] Dr. Pratibha StevensonAlbumin/Globulin [Mass ratio]1.4 {ratio}NormalThe [facility] CenterComment on above:Performed By: #### ERUR #### [facility] [address] [place] [address] Dr. Pratibha StevensonALP [Catalytic activity/Vol]87 U/WSseukg13-533Kra [facility] CenterComment on above:Performed By: #### ERUR #### [facility] [address] [address] [address] Pratibha Lorenzo [Catalytic activity/Vol]20 U/JVjbdep76-45Nvs [facility] CenterComment on above:Performed By: #### ERUR #### [facility] [address] [address] [address] Pratibha Santoson gap [Moles/Vol]12.8 mmol/LNormalThe [facility] Comment on above:Performed By: #### ERUR #### [facility] [address] [address] [address] Pratibha StevensonAST [Catalytic activity/Vol]18 U/QTusyow15-35Lba [facility] CenterComment on above:Performed By: #### ERUR #### [facility] [address] [address] [address] Pratibha StevensonBilirubin [Mass/Vol]0.5 mg/dLNormal0.2-1.0[facility] Comment on above:Performed By: #### ERUR #### [facility] [address] [address] [address] Pratibha StevensonCalcium [Mass/Vol]9.2 mg/dLNormal8.5-10.1The [facility] Comment on above:Performed By: #### ERUR #### [facility] [address] [address] [address] Pratibha StevensonChloride [Moles/Vol]101 mmol/GHfpvea32-942Rhy [facility] Comment on above:Performed By: #### ERUR #### [facility] [address] [address] [address] Pratibha StevensonCO2 [Moles/Vol]24.7 mmol/KIpcuix81.0-32.0The [facility] Comment on above:Performed By: #### ERUR #### [facility] [address] [address] [address] Pratibha StevensonCreatinine [Mass/Vol]1.20 mg/dLNormal0.70-1.30The [facility] CenterComment on above:Performed By: #### ERUR #### [facility] [address] [address] [address] Pratibha ParksGFR-AF CITIZEN OF [place]>60Normal>=60The [facility] CenterComment on above:Performed By: #### ERUR #### [facility] [address] [address] [address] Pratibha ParksGFR-NON AF CITIZEN OF [place]>60Normal>=60The [facility] CenterComment on above:Performed By: #### ERUR #### [facility] [address] [address] [address] Pratibha StevensonGlobulin (S) [Mass/Vol]3.1 g/dLNormalThe [facility] CenterComment on above:Performed By: #### ERUR #### [facility] [address] [address] [address] Pratibha StevensonGlucose [Mass/Vol]128 mg/dLCritically vwtu16-661Ueu [facility] on above:Performed By: #### ERUR #### [facility] [address] [address] [address] Pratibha StevensonPotassium [Moles/Vol]3.5 mmol/LNormal3.5-5.1The [facility] Comment on above:Performed By: #### ERUR #### [facility] [address] [address] [address] Pratibha StevensonProtein [Mass/Vol]7.3 g/dLNormal6.4-8.2The [facility] Comment on above:Performed By: #### ERUR #### [facility] [address] [address] [address] Pratibha StevensonSodium [Moles/Vol]135 mmol/LCritically pwx537-094Hho [facility] on above:Performed By: #### ERUR #### [facility] [address] [address] [address] Pratibha StevensonUrea nitrogen [Mass/Vol]10.0 mg/dLNormal7.0-18.0The Morris HospitalComment on above:Performed By: #### ERUR #### [facility] [address] [place] [address] Dr. Pratibha StevensonUrea nitrogen/Creatinine [Mass ratio]8.3 mg/mgNormalThElyria Memorial HospitalComment on above:Performed By: #### ERUR #### [facility] [address] [place] [address] Dr. Pratibha Bobo AUTO DIFFon 26-22-3995OMWN #0.1 103/ulNormal0.0-0.1The [facility] CenterComment on above:Performed By: #### CBC #### [facility] [address] [place] [address] Dr. Pratibha StevensonBasophils/100 WBC (Bld)0.7 %Normal0.2-2.0[facility] Comment on above:Performed By: #### CBC #### [facility] [address] [place] [address] Dr. Pratibha Vaca #0.2 103/ulNormal0.0-0.7The [facility] CenterComment on above: Performed By: #### CBC #### [facility] [address] [place] [address] Dr. Pratibha Parksosinophils/100 WBC (Bld)2.4 %Normal0.9-7.0[facility] Comment on above:Performed By: #### CBC #### [facility] [address] [place] [address] Dr. Pratibha Parksrythrocyte distribution width (RBC) [Ratio]12.4 %Oojjau87.0-15.0 The [facility] CenterComment on above:Performed By: #### CBC #### [facility] [address] [place] [address] Dr. Pratibha StevensonHematocrit (Bld) [Volume fraction]45.8 %Dcbmok16.0-54.0The [facility] CenterComment on above:Performed By: #### CBC #### [facility] [address] [place] [address] Dr. Pratibha StevensonHemoglobin (Bld) [Mass/Vol]15.6 g/oEKbaaxm37.0-18.0The [facility] CenterComment on above:Performed By: #### CBC #### [facility] [address] [place] [address] Dr. Pratibha Zarate #0.03 10e3/ulNormal0.00-0.03The [facility] CenterComment on above:Performed By: #### CBC #### [facility] [address] [place] [address] Dr. Pratibha Zarate %0.4 %Normal0.0-0.5The [facility] CenterComment on above: Performed By: #### CBC #### [facility] [address] [place] [address] Dr. Pratibha Mendez #3.0 103/ulNormal1.2-3.8The [facility] CenterComment on above:Performed By: #### CBC #### [facility] [address] [place] [address] Dr. Pratibha Engelhocytes/100 WBC (Bld)34.7 %Vhrkkt34.5-60.0The [facility] CenterComment on above:Performed By: #### CBC #### [facility] [address] [place] [address] Dr. Pratibha Johnson DIFF REQNONormalThe [facility] CenterComment on above: Performed By: #### CBC #### [facility] [address] [place] [address] Dr. Pratibha Knox (RBC) [Entitic mass]31.3 oiLpxnae76.9-34.0The [facility] CenterComment on above:Performed By: #### CBC #### [facility] [address] [place] [address] Dr. Pratibah Ernst (RBC) [Mass/Vol]34.1 g/fNEekqyg93.9-35.2The [facility] CenterComment on above:Performed By: #### CBC #### [facility] [address] [place] [address] Dr. Yilan ChangMCV (RBC) [Entitic vol]92.0 qQWezftz44.0-94.0The [facility] CenterComment on above:Performed By: #### CBC #### [facility] [address] [place] [address] Dr. Pratibha Victoria #0.5 103/ulNormal0.3-0.8The [facility] CenterComment on above:Performed By: #### CBC #### [facility] [address] [place] [address] Dr. Pratibha Valdezocytes/100 WBC (Bld)5.9 %Normal1.7-12.0The [facility] Comment on above:Performed By: #### CBC #### [facility] [address] [place] [address] Dr. Pratibha Boucher #4.8 103/ulNormal1.4-6.5The [facility] CenterComment on above:Performed By: #### CBC #### [facility] [address] [place] [address] Dr. Pratibha Stevensutrophils/100 WBC (Bld)55.9 %Cydrzh50.0-75.0The [facility] CenterComment on above:Performed By: #### CBC #### [facility] [address] [place] [address] Dr. Pratibha Olmedolet mean volume (Bld) [Entitic vol]10.0 fLNormal9.5-13.5The [facility] CenterComment on above:Performed By: #### CBC #### [facility] [address] [place] [address] Dr. Pratibha MedinaT243 103/wvYpdjzv183-585Pwp [facility] CenterComment on above: Performed By: #### CBC #### [facility] [address] [place] [address] Dr. Pratibha DeC4.98 106/ulNormal4.70-6.10The [facility] CenterComment on above:Performed By: #### CBC #### [facility] [address] [place] [address] Dr. Pratibha StevensonWBC8.5 103/ulNormal4.0-11.0The [facility] CenterComment on above: Performed By: #### CBC #### [facility] [address] [place] [address] Dr. Pratibha StevensonCT ABD/PELVIS WO CONon [id number] ABD/PELVIS WO CONEXAM: CT ABD/PELVIS WO CON 07/20/2022 1:13 AM [...] Electronically authenticated by: ROSALINO VIDALES Date: 2022-07-20 04:12[facility] URINE PROFILEon 45-96-6199Zdjmdzbvy Ql (U)NegativeNormal NEGATIVEThe [facility] CenterComment on above:Performed By: #### LACT #### [facility] [address] [place] [address] Dr. Pratibha Bishop (U)CLEARNormalCLEARThe [facility] CenterComment on above: Performed By: #### LACT #### [facility] [address] [place] [address] Dr. Pratibha Abreu (U)LT. YELLOWNormalYELLOWThe [facility] CenterComment on above:Performed By: #### LACT #### [facility] [address] [place] [address] Dr. Yilan ChangERUAHDA micrscopic examination will be performed if indicated. NormalTrinity Health SystemComment on above:Performed By: #### LACT #### [facility] [address] [address] [address] Pratibha StevensonGlucose Ql (U)NegativeNormalNEGATIVETrinity Health SystemComment on above:Performed By: #### LACT #### [facility] [address] [address] [address] Pratibha StevensonHemoglobin Ql (U)NegativeNormalNEGATIVETrinity Health System Comment on above:Performed By: #### LACT #### [facility] [address] [place] [address] Dr. Pratibha StevensonKetones Ql (U)NegativeNormalNEGATIVETrinity Health SystemComment on above:Performed By: #### LACT #### [facility] [address] [place] [address] Dr. Pratibha StevensonLEUKOCYTESNegativeNormalNEGATIVETrinity Health SystemComment on above:Performed By: #### LACT #### [facility] [address] [place] [address] Dr. Pratibha StevensonNitrite Ql (U)NegativeNormalNEGATIVETrinity Health SystemComment on above:Performed By: #### LACT #### [facility] [address] [place] [address] Dr. Pratibha StevensonpH (U)6.0 [pH]Normal5-9Trinity Health SystemComment on above: Performed By: #### LACT #### [facility] [address] [place] [address] Dr. Pratibha StevensonSPEC GRAVITY<=1.406Dgyuaeyu1.005-<=1.025[facility] Comment on above:Performed By: #### LACT #### [facility] [address] [place] [address] Dr. Pratibha Serrano PROTEINNegativeNoalNEGATIVE/ TRACETrinity Health System Comment on above:Performed By: #### LACT #### [facility] [address] [place] [address] Dr. Pratibha Silveira MICRO INDNOT INDICATEDNormalThe [facility] CenterComment on above:Performed By: #### LACT #### [facility] [address] [place] [address] Dr. Pratibha Hessbilinogen Qn (U)0.2 {Butch'U}/dLNormal0.2 - 1.0The [facility] CenterComment on above:Performed By: #### LACT #### [facility] [address] [place] [address] Dr. Pratibha StevensonLACTATE/LACTIC ACIDon 40-25-0896Iypiybi [Moles/Vol]0.8 mmol/L Normal0.4-2.0The [facility] CenterComment on above:Performed By: #### LACT #### [facility] [address] [place] [address] Dr. Pratibha StevensonPROF 14(COMP METB)on 31-55-0070Yoitfnb [Mass/Vol]4.3 g/dLNormal 3.4-5.0The [facility] CenterComment on above:Performed By: #### ERUR #### [facility] [address] [place] [address] Dr. Pratibha StevensonAlbumin/Globulin [Mass ratio]1.3 {ratio}NormalThe [facility] CenterComment on above:Performed By: #### ERUR #### [facility] [address] [place] [address] Dr. Pratibha Rodrigues [Catalytic activity/Vol]94 U/IRedkkf14-426Zlz [facility] CenterComment on above:Performed By: #### ERUR #### [facility] [address] [place] [address] Dr. Pratibha Lorenzo [Catalytic activity/Vol]23 U/ICqaoco79-27Rtq [facility] CenterComment on above:Performed By: #### ERUR #### [facility] [address] [place] [address] Dr. Pratibha Shultz gap [Moles/Vol]10.5 mmol/LNormalThe [facility] on above:Performed By: #### ERUR #### [facility] [address] [address] [address] Pratibha StevensonAST [Catalytic activity/Vol]21 U/DPlafkh28-79Jda [facility] CenterComment on above:Performed By: #### ERUR #### [facility] [address] [place] [address] Dr. Pratibha StevensonBilirubin [Mass/Vol]0.5 mg/dLNormal0.2-1.0The [facility] Comment on above:Performed By: #### ERUR #### [facility] [address] [place] [address] Dr. Pratibha StevensonCalcium [Mass/Vol]9.3 mg/dLNormal8.5-10.1The [facility] Comment on above:Performed By: #### ERUR #### [facility] [address] [place] [address] Dr. Pratibha StevnesonChloride [Moles/Vol]102 mmol/GWitodv10-806Inh [facility] Comment on above:Performed By: #### ERUR #### [facility] [address] [place] [address] Dr. Pratibha StevensonCO2 [Moles/Vol]26.2 mmol/DJtkmzo70.0-32.0The [facility] Comment on above:Performed By: #### ERUR #### [facility] [address] [place] [address] Dr. Pratibha StevensonCreatinine [Mass/Vol]1.18 mg/dLNormal0.70-1.30The [facility] CenterComment on above:Performed By: #### ERUR #### [facility] [address] [place] [address] Dr. Pratibha ParksGFR-AF CITIZEN OF [place]>60Normal>=60The [facility] CenterComment on above:Performed By: #### ERUR #### [facility] [address] [place] [address] Dr. Pratibha ParksGFR-NON AF CITIZEN OF [place]>60Normal>=60The [facility] CenterComment on above:Performed By: #### ERUR #### [facility] [address] [place], [place] [id number] Dr. Pratibha StevensonGlobulin (S) [Mass/Vol]3.2 g/dLNormDetwiler Memorial HospitalComment on above:Performed By: #### ERUR #### [facility] [address] [address] [address] Pratibha StevensonGlucose [Mass/Vol]115 mg/dLCritically xard57-912Evh [facility] CenterComment on above:Performed By: #### ERUR #### [facility] [address] [address] [address] Pratibha StevensonPotassium [Moles/Vol]3.7 mmol/LNormal3.5-5.1The [facility] Comment on above:Performed By: #### ERUR #### [facility] [address] [place] [address] Dr. Pratibha StevensonProtein [Mass/Vol]7.5 g/dLNormal6.4-8.2The [facility] Comment on above:Performed By: #### ERUR #### [facility] [address] [place] [address] Dr. Pratibha StevensonSodium [Moles/Vol]135 mmol/LCritically kxf961-956Tsh [facility] CenterComment on above:Performed By: #### ERUR #### [facility] [address] [place] [address] Dr. Pratibha StevensonUrea nitrogen [Mass/Vol]11.0 mg/dLNormal7.0-18.0The [facility] CenterComment on above:Performed By: #### ERUR #### [facility] [address] [place] [address] Dr. Pratibha StevensonUrea nitrogen/Creatinine [Mass ratio]9.3 mg/mgNoVan Wert County HospitalComment on above:Performed By: #### ERUR #### [facility] [address] [place] [address] Dr. Pratibha Katz, HIGH SENSITIVITYon 62-51-7796AUEVAT2.0 pg/mLNormal 4.0-76.1Trinity Health SystemComment on above:Result Comment: CUT-OFF POINTS HAVE BEEN ESTABLISHED BASED ON THE FOURTH UNIVERSAL DEFINITIONS OF MYOCARDIAL INFARCTION. THE UPPER REFERENCE LIMIT (URL) OF TROPONIN, DEFINED THE 99TH PERCENTILE OF cTnI DISTRIBUTION IN A REFERENCE POPULATION, HAS BEEN CONFIRMED THE DECISION THRESHOLD FOR [place] DIAGNOSIS.Performed By: #### ERUR #### [facility] [address] [place], [place] [address] Dr. Pratibha Jacob KIDNEYSon [id number] KIDNEYSEXAMINATION: US KIDNEYS HISTORY: Kidney stone COMPARISON: No [...] Electronically authenticated by: RAMO BLAKE Date: 2022-07-06 11:14[facility] HospitalXR KUB 1 VIEWon [id number] KUB 1 VIEWEXAMINATION: XR KUB 1 VIEW HISTORY: Kidney stone [...] Electronically authenticated by: SAUMYA MARSH Date: 2022-07-06 11:57[facility] HospitalAMYLASEon 01-21-5734Pintcme [Catalytic activity/Vol]39 U/L Dnsbxm49-163MorTrinity Health SystemComment on above:Performed By: #### ERUR #### [facility] [address] [place] [address] Dr. Pratibha Bobo AUTO DIFFon 05-46-7121LQBL #0.0 103/ulNormal0.0-0.1The [facility] CenterComment on above:Performed By: #### LACT #### [facility] [address] [place] [address] Dr. Pratibha StevensonBasophils/100 WBC (Bld)0.2 %Normal0.2-2.0The [facility] Comment on above:Performed By: #### LACT #### [facility] [address] [place] [address] Dr. Pratibha Vaca #0.0 103/ulNormal0.0-0.7The [facility] CenterComment on above: Performed By: #### LACT #### [facility] [address] [place] [address] Dr. Pratibha Parksosinophils/100 WBC (Bld)0.0 %Critically low0.9-7.0The [facility] CenterComment on above:Performed By: #### LACT #### [facility] [address] [place] [address] Dr. Pratibha Parksrythrocyte distribution width (RBC) [Ratio]11.7 %Snrbna74.0-15.0 The [facility] CenterComment on above:Performed By: #### LACT #### [facility] [address] [place] [address] Dr. Pratibha StevensonHematocrit (Bld) [Volume fraction]43.0 %Klvxky22.0-54.0The [facility] CenterComment on above:Performed By: #### LACT #### [facility] [address] [place] [address] Dr. Pratibha StevensonHemoglobin (Bld) [Mass/Vol]13.9 g/dLCritically low14.0-18.0The [facility] CenterComment on above:Performed By: #### LACT #### [facility] [address] [place] [address] Dr. Pratibha Zarate #0.03 10e3/ulNormal0.00-0.03The [facility] CenterComment on above:Performed By: #### LACT #### [facility] [address] [place] [address] Dr. Pratibha Zarate %0.3 %Normal0.0-0.5The [facility] CenterComment on above: Performed By: #### LACT #### [facility] [address] [place] [address] Dr. Pratibha Mendez #0.8 103/ulCritically low1.2-3.8The [facility] Comment on above:Performed By: #### LACT #### [facility] [address] [place] [address] Dr. Pratibha Engelhocytes/100 WBC (Bld)8.6 %Critically low20.5-60.0The [facility] CenterComment on above:Performed By: #### LACT #### [facility] [address] [place] [address] Dr. Pratibha oJhnson DIFF REQNONormalThe [facility] CenterComment on above: Performed By: #### LACT #### [facility] [address] [place] [address] Dr. Pratibha Knox (RBC) [Entitic mass]31.0 zdFmfvha97.9-34.0The [facility] CenterComment on above:Performed By: #### LACT #### [facility] [address] [place] [address] Dr. Pratibha Ernst (RBC) [Mass/Vol]32.3 g/dZCfulba30.9-35.2The [facility] HospitalComment on above:Performed By: #### LACT #### [facility] [address] [place] [address] Dr. Pratibha Ernst (RBC) [Entitic vol]96.0 fLCritically high80.0-94.0The [facility] CenterComment on above:Performed By: #### LACT #### [facility] [address] [place] [address] Dr. Pratibha Victoria #0.4 103/ulNormal0.3-0.8The [facility] CenterComment on above:Performed By: #### LACT #### [facility] [address] [place] [address] Dr. Pratibha Valdezocytes/100 WBC (Bld)4.5 %Normal1.7-12.0[facility] Comment on above:Performed By: #### LACT #### [facility] [address] [place] [address] Dr. Pratibha Boucher #8.4 103/ulCritically high1.4-6.5The [facility] Comment on above:Performed By: #### LACT #### [facility] [address] [place] [address] Dr. Pratibha Stevensutrophils/100 WBC (Bld)86.4 %Critically high43.0-75.0The [facility] CenterComment on above:Performed By: #### LACT #### [facility] [address] [place] [address] Dr. Pratibha Banerjee mean volume (Bld) [Entitic vol]10.6 fLNormal9.5-13.5The [facility] CenterComment on above:Performed By: #### LACT #### [facility] [address] [place] [address] Dr. Pratibha StevensonPLT227 103/evKzntxl554-038Cii [facility] CenterComment on above: Performed By: #### LACT #### [facility] [address] [place] [address] Dr. Pratibha DeC4.48 106/ulCritically low4.70-6.10The [facility] CenterComment on above:Performed By: #### LACT #### [facility] [address] [place] [address] Dr. Pratibha StevensonWBC9.7 103/ulNormal4.0-11.0The [facility] CenterComment on above: Performed By: #### LACT #### [facility] [address] [place] [address] Dr. Pratibha Alcazar [id number] [Catalytic activity/Vol]110.0 U/LNormal 73.0-393.0The [facility] CenterComment on above:Performed By: #### ERUR #### [facility] [address] [place] [address] Dr. Pratibha StevensonPROF 14(COMP METB)on [id number] [Mass/Vol]3.3 g/dL Critically low3.4-5.0The [facility] CenterComment on above:Performed By: #### ERUR #### [facility] [address] [place] [address] Dr. Pratibha StevensonAlbumin/Globulin [Mass ratio]1.2 {ratio}NormalThe [facility] CenterComment on above:Performed By: #### ERUR #### [facility] [address] [place] [address] Dr. Pratibha JenkinsP [Catalytic activity/Vol]68 U/JBwjboa44-880Kar [facility] CenterComment on above:Performed By: #### ERUR #### [facility] [address] [place] [address] Dr. Pratibha Lorenzo [Catalytic activity/Vol]27 U/IXroswm32-61Tcm [facility] CenterComment on above:Performed By: #### ERUR #### [facility] [address] [place] [address] Dr. Pratibha Shultz gap [Moles/Vol]10.4 mmol/LNormalThe [facility] Comment on above:Performed By: #### ERUR #### [facility] [address] [place] [address] Dr. Pratibha StevensonAST [Catalytic activity/Vol]25 U/LViwynl00-59Hyd [facility] CenterComment on above:Performed By: #### ERUR #### [facility] [address] [place] [address] Dr. Pratibha StevensonBilirubin [Mass/Vol]0.5 mg/dLNormal0.2-1.0The [facility] Comment on above:Performed By: #### ERUR #### [facility] [address] [address] [address] Pratibha StevensonCalcium [Mass/Vol]8.8 mg/dLNormal8.5-10.1The [facility] Comment on above:Performed By: #### ERUR #### [facility] [address] [address] [address] Pratibha StevensonChloride [Moles/Vol]105 mmol/LGhainj95-787Qqx [facility] Comment on above:Performed By: #### ERUR #### [facility] [address] [place] [address] Dr. Pratibha StevensonCO2 [Moles/Vol]26.5 mmol/TRifbid89.0-32.0The [facility] Comment on above:Performed By: #### ERUR #### [facility] [address] [place] [address] Dr. Pratibha StevensonCreatinine [Mass/Vol]1.15 mg/dLNormal0.70-1.30The [facility] CenterComment on above:Performed By: #### ERUR #### [facility] [address] [place] [address] Dr. Pratibha ParksGFR-AF CITIZEN OF [place]>60Normal>=60The [facility] CenterComment on above:Performed By: #### ERUR #### [facility] [address] [place] [address] Dr. Pratibha ParksGFR-NON AF CITIZEN OF [place]>60Normal>=60The [facility] CenterComment on above:Performed By: #### ERUR #### [facility] [address] [place] [address] Dr. Pratibha StevensonGlobulin (S) [Mass/Vol]2.7 g/dLNormalThe [facility] CenterComment on above:Performed By: #### ERUR #### [facility] [address] [place] [address] Dr. Pratibha StevensonGlucose [Mass/Vol]119 mg/dLCritically qrgb95-686Cqz [facility] CenterComment on above:Performed By: #### ERUR #### [facility] [address] [address] [address] Pratibha StevensonPotassium [Moles/Vol]3.9 mmol/LNormal3.5-5.1The [facility] Comment on above:Performed By: #### ERUR #### [facility] [address] [address] [address] Pratibha StevensonProtein [Mass/Vol]6.0 g/dLCritically low6.4-8.2The [facility] CenterComment on above:Performed By: #### ERUR #### [facility] [address] [address] [address] Pratibha StevensonSodium [Moles/Vol]138 mmol/QQxqmxw745-828Wiu [facility] Comment on above:Performed By: #### ERUR #### [facility] [address] [address] [address] Pratibha StevensonUrea nitrogen [Mass/Vol]7.0 mg/dLNormal7.0-18.0The [facility] CenterComment on above:Performed By: #### ERUR #### [facility] [address] [address] [address] Pratibha StevensonUrea nitrogen/Creatinine [Mass ratio]6.1 mg/mgNoVan Wert County HospitalComment on above:Performed By: #### ERUR #### [facility] [address] [address] [address] Pratibha StevensonXR KUB 1 VIEWon [id number] KUB 1 VIEWEXAM: XR KUB 1 VIEW 05/11/2022 11:20 PM [...] Electronically authenticated by: ROSALINO VIDALES Date: 2022-05-12 06:43[facility] HospitalAMYLASEon 72-69-0117Wrydvkz [Catalytic activity/Vol]52 U/L Ocqreq31-502Cfe [facility] CenterComment on above:Performed By: #### CMP, GREG, LIPA #### [facility] [address] [address] [address] Pratibha Bobo AUTO DIFFon 66-97-5730NLCH #0.0 103/ulNormal0.0-0.1The [facility] CenterComment on above:Performed By: #### CBC #### [facility] [address] [address] [address] Pratibha StevensonBasophils/100 WBC (Bld)0.6 %Normal0.2-2.0The [facility] Comment on above:Performed By: #### CBC #### [facility] [address] [place] [address] Dr. Pratibha Vaca #0.2 103/ulNormal0.0-0.7The [facility] CenterComment on above: Performed By: #### CBC #### [facility] [address] [address] [address] Pratibha Parksosinophils/100 WBC (Bld)2.3 %Normal0.9-7.0The [facility] Comment on above:Performed By: #### CBC #### [facility] [address] [place] [address] Dr. Pratibha Parksrythrocyte distribution width (RBC) [Ratio]11.7 %Seozcx67.0-15.0 The [facility] CenterComment on above:Performed By: #### CBC #### [facility] [address] [place] [address] Dr. Pratibha StevensonHematocrit (Bld) [Volume fraction]42.4 %Rqlcet39.0-54.0The [facility] CenterComment on above:Performed By: #### CBC #### [facility] [address] [place] [address] Dr. Pratibha StevensonHemoglobin (Bld) [Mass/Vol]14.3 g/uBErmogu86.0-18.0The [facility] CenterComment on above:Performed By: #### CBC #### [facility] [address] [place] [address] Dr. Pratibha Zarate #0.01 10e3/ulNormal0.00-0.03The [facility] CenterComment on above:Performed By: #### CBC #### [facility] [address] [place] [address] Dr. Pratibha Zarate %0.2 %Normal0.0-0.5The [facility] CenterComment on above: Performed By: #### CBC #### [facility] [address] [place] [address] Dr. Pratibha Mendez #2.8 103/ulNormal1.2-3.8The [facility] CenterComment on above:Performed By: #### CBC #### [facility] [address] [place] [address] Dr. Pratibha Engelhocytes/100 WBC (Bld)41.8 %Atzoyc21.5-60.0The [facility] CenterComment on above:Performed By: #### CBC #### [facility] [address] [place] [address] Dr. Pratibha LorenzUAL DIFF REQNONormalThe [facility] CenterComment on above: Performed By: #### CBC #### [facility] [address] [place] [address] Dr. Pratibha Ernst (RBC) [Entitic mass]31.0 gmBalljj36.9-34.0The [facility] CenterComment on above:Performed By: #### CBC #### [facility] [address] [place] [address] Dr. Pratibha Ernst (RBC) [Mass/Vol]33.7 g/oYNcmxtd78.9-35.2The [facility] CenterComment on above:Performed By: #### CBC #### [facility] [address] [place] [address] Dr. Pratibha Ernst (RBC) [Entitic vol]92.0 pRNxdljn75.0-94.0The [facility] CenterComment on above:Performed By: #### CBC #### [facility] [address] [address] [address] Pratibha Victoria #0.5 103/ulNormal0.3-0.8The [facility] CenterComment on above:Performed By: #### CBC #### [facility] [address] [place] [address] Dr. Pratibha Valdezocytes/100 WBC (Bld)7.9 %Normal1.7-12.0The [facility] Comment on above:Performed By: #### CBC #### [facility] [address] [place] [address] Dr. Pratibha Boucher #3.1 103/ulNormal1.4-6.5The [facility] CenterComment on above:Performed By: #### CBC #### [facility] [address] [place] [address] Dr. Pratibha Stevensutrophils/100 WBC (Bld)47.2 %Rndclo40.0-75.0The [facility] CenterComment on above:Performed By: #### CBC #### [facility] [address] [place] [address] Dr. Pratibha Banerjee mean volume (Bld) [Entitic vol]10.7 fLNormal9.5-13.5The [facility] CenterComment on above:Performed By: #### CBC #### [facility] [address] [place] [address] Dr. Pratibha MedinaT216 103/boRjttit876-214Bos [facility] CenterComment on above: Performed By: #### CBC #### [facility] [address] [place] [address] Dr. Pratibha StevensonRBC4.61 106/ulCritically low4.70-6.10The [facility] CenterComment on above:Performed By: #### CBC #### [facility] [address] [place] [address] Dr. Pratibha StevensonWBC6.6 103/ulNormal4.0-11.0The Community [facility] Hospitalment on above: Performed By: #### CBC #### [facility] [address] [address] [address] Pratibha Wood ABD/PELVIS WO CONon [id number] ABD/PELVIS WO CONEXAMINATION: CT ABD/PELVIS WO CON HISTORY: CALCULUS OF [...] Electronically authenticated by: SAUMYA MARSH Date: 2022-05-11 08:[address] [place], [place] [address]LIPASEon 07-01-4454Mtnnnv [Catalytic activity/Vol]241.0 U/L Namaul91.0-393.0The [facility] Hospitalment on above:Performed By: #### CMP, GREG, LIPA #### [facility] [address] [place] [address] Dr. Pratibha Melvin 14(COMP METB)on 07-68-0742Jgkdnmu [Mass/Vol]3.6 g/dLNormal 3.4-5.0The [facility] CenterComment on above:Performed By: #### CMP, GREG, LIPA #### [facility] [address] [place] [address] Dr. Pratibha StevensonAlbumin/Globulin [Mass ratio]1.2 {ratio}NormalThe [facility] CenterComment on above:Performed By: #### CMP, GREG, LIPA #### [facility] [address] [place] [address] Dr. Pratibha Rodrigues [Catalytic activity/Vol]75 U/HMweyam03-588Ebw [facility] CenterComment on above:Performed By: #### CMP, GREG, LIPA #### [facility] [address] [place] [address] Dr. Pratibha Lorenzo [Catalytic activity/Vol]28 U/BJgguga60-55Pln [facility] CenterComment on above:Performed By: #### CMP, GREG, LIPA #### [facility] [address] [place] [address] Dr. Pratibha Shultz gap [Moles/Vol]9.7 mmol/LNormalThe [facility] CenterComment on above:Performed By: #### CMP, GREG, LIPA #### [facility] [address] [place] [address] Dr. Pratibha StevensonAST [Catalytic activity/Vol]19 U/XLwmepw88-18Eak [facility] CenterComment on above:Performed By: #### CMP, GREG, LIPA #### [facility] [address] [place] [address] Dr. Pratibha StevensonBilirubin [Mass/Vol]0.5 mg/dLNormal0.2-1.0The [facility] Comment on above:Performed By: #### CMP, GREG, LIPA #### [facility] [address] [place] [address] Dr. Pratibha StevensonCalcium [Mass/Vol]9.1 mg/dLNormal8.5-10.1The [facility] Comment on above:Performed By: #### CMP, GREG, LIPA #### [facility] [address] [address] [address] Pratibha StevensonChloride [Moles/Vol]104 mmol/SYlorrj14-109BaqTrinity Health System Comment on above:Performed By: #### CMP, GREG, LIPA #### [facility] [address] [address] [address] Pratibha StevensonCO2 [Moles/Vol]29.3 mmol/SXkopsx02.0-32.0The [facility] Comment on above:Performed By: #### CMP GREG, LIPA #### [facility] [address] [place] [address] Dr. Pratibha StevensonCreatinine [Mass/Vol]1.21 mg/dLNormal0.70-1.30The [facility] CenterComment on above:Performed By: #### CMP, GREG, LIPA #### [facility] [address] [place] [address] Dr. Pratibha ParksGFR-AF CITIZEN [place]>60Normal>=60The [facility] CenterComment on above:Performed By: #### CMP, GREG, LIPA #### [facility] [address] [place] [address] Dr. Pratibha ParksGFR-NON AF CITIZEN OF [place]>60Normal>=60The [facility] CenterComment on above:Performed By: #### CMP, GREG, LIPA #### [facility] [address] [place] [address] Dr. Pratibha StevensonGlobulin (S) [Mass/Vol]3.1 g/dLNormalThe [facility] CenterComment on above:Performed By: #### CMP, GREG, LIPA #### [facility] [address] [place] [address] Dr. Pratibha StevensonGlucose [Mass/Vol]88 mg/yCRjcccg38-000Syl [facility] Comment on above:Performed By: #### CMP, GREG, LIPA #### [facility] [address] [address] [address] Pratibha StevensonPotassium [Moles/Vol]4.0 mmol/LNormal3.5-5.1The [facility] Comment on above:Performed By: #### CMP, GREG, LIPA #### [facility] [address] [address] [address] Pratibha StevensonProtein [Mass/Vol]6.7 g/dLNormal6.4-8.2The [facility] Comment on above:Performed By: #### CMP, GREG, LIPA #### [facility] [address] [place] [address] Dr. Pratibha StevensonSodium [Moles/Vol]139 mmol/EOytzru794-384Vun [facility] Comment on above:Performed By: #### CMP, GREG, LIPA #### [facility] [address] [place] [address] Dr. Pratibha StevensonUrea nitrogen [Mass/Vol]8.0 mg/dLNormal7.0-18.0Trinity Health SystemComment on above:Performed By: #### CMP, GREG, LIPA #### [facility] [address] [place] [address] Dr. Pratibha Stallings nitrogen/Creatinine [Mass ratio]6.6 mg/mgNormalThe [facility] CenterComment on above:Performed By: #### CMP, GREG, LIPA #### [facility] [address] [place] [address] Dr. Pratibha StevensonXR KUB 1 VIEWon 59-50-4572FJ KUB 1 VIEWEXAM: XR KUB 1 VIEW HISTORY: Left flank [...] Electronically authenticated by: MAUREEN GARDNER Date: 2022-05-11 06:36NormalThElyria Memorial HospitalAMYLASEon 86-98-8386Slymzys [Catalytic activity/Vol]41 U/L Rpyflo97-512FogTrinity Health SystemComment on above:Performed By: #### LACT #### [facility] [address] [place] [address] Dr. Pratibha Bobo AUTO DIFFon [id number] #0.0 103/ulNormal0.0-0.1The [facility] CenterComment on above:Performed By: #### LACT #### [facility] [address] [place] [address] Dr. Pratibha StevensonBasophils/100 WBC (Bld)0.7 %Normal0.2-2.0[facility] Comment on above:Performed By: #### LACT #### [facility] [address] [place] [address] Dr. Pratibha Vaca #0.2 103/ulNormal0.0-0.7The [facility] CenterComment on above: Performed By: #### LACT #### [facility] [address] [place] [address] Dr. Pratibha Parksosinophils/100 WBC (Bld)2.8 %Normal0.9-7.0[facility] Comment on above:Performed By: #### LACT #### [facility] [address] [place] [address] Dr. Pratibha Parksrythrocyte distribution width (RBC) [Ratio]11.8 %Cdcoce66.0-15.0 The [facility] CenterComment on above:Performed By: #### LACT #### [facility] [address] [place] [address] Dr. Yilan ChangHematocrit (Bld) [Volume fraction]38.8 %Critically low42.0-54.0 The [facility] CenterComment on above:Performed By: #### LACT #### [facility] [address] [place] [address] Dr. Pratibha StevensonHemoglobin (Bld) [Mass/Vol]13.3 g/dLCritically low14.0-18.0The [facility] HospitalComment on above:Performed By: #### LACT #### [facility] [address] [place] [address] Dr. Pratibha StevensonIG #0.02 10e3/ulNormal0.00-0.03The [facility] CenterComment on above:Performed By: #### LACT #### [facility] [address] [place] [address] Dr. Pratibha StevensonIG %0.3 %Normal0.0-0.5The [facility] CenterComment on above: Performed By: #### LACT #### [facility] [address] [place] [address] Dr. Pratibha Mendez #2.1 103/ulNormal1.2-3.8The [facility] CenterComment on above:Performed By: #### LACT #### [facility] [address] [place] [address] Dr. Pratibha Cunhamphocytes/100 WBC (Bld)35.3 %Qbxjkp80.5-60.0The [facility] CenterComment on above:Performed By: #### LACT #### [facility] [address] [place] [address] Dr. Pratibha StevensonMANUAL DIFF REQNONormalThe [facility] CenterComment on above: Performed By: #### LACT #### [facility] [address] [place] [address] Dr. Pratibha Knox (RBC) [Entitic mass]30.7 nwYqmjdh83.9-34.0The [facility] CenterComment on above:Performed By: #### LACT #### [facility] [address] [place] [address] Dr. Pratibha Ernst (RBC) [Mass/Vol]34.3 g/zIRszpzv67.9-35.2The [facility] CenterComment on above:Performed By: #### LACT #### [facility] [address] [address] [address] Pratibha Ernst (RBC) [Entitic vol]89.6 uJPudttl23.0-94.0The [facility] CenterComment on above:Performed By: #### LACT #### [facility] [address] [place] [address] Dr. Pratibha Victoria #0.4 103/ulNormal0.3-0.8The [facility] CenterComment on above:Performed By: #### LACT #### [facility] [address] [place] [address] Dr. Pratibha Valdezocytes/100 WBC (Bld)7.4 %Normal1.7-12.0The [facility] Comment on above:Performed By: #### LACT #### [facility] [address] [place] [address] Dr. Pratibha Boucher #3.1 103/ulNormal1.4-6.5The [facility] CenterComment on above:Performed By: #### LACT #### [facility] [address] [place] [address] Dr. Pratibha Stevensutrophils/100 WBC (Bld)53.5 %Ucnmkt40.0-75.0The [facility] CenterComment on above:Performed By: #### LACT #### [facility] [address] [place] [address] Dr. Pratibha Olmedolet mean volume (Bld) [Entitic vol]10.2 fLNormal9.5-13.5The [facility] CenterComment on above:Performed By: #### LACT #### [facility] [address] [place] [address] Dr. Pratibha StevensonPLT197 103/dePxqjtd700-985Dqu [facility] CenterComment on above: Performed By: #### LACT #### [facility] [address] [place] [address] Dr. Pratibha StevensonRBC4.33 106/ulCritically low4.70-6.10The [facility] CenterComment on above:Performed By: #### LACT #### [facility] [address] [place] [address] Dr. Pratibha StevensonWBC5.8 103/ulNormal4.0-11.0The [facility] CenterComment on above: Performed By: #### LACT #### [facility] [address] [place] [address] Dr. Pratibha StevensonLIPASEon 19-59-6269Zjermn [Catalytic activity/Vol]134.0 U/LNormal 73.0-393.0The [facility] CenterComment on above:Performed By: #### LACT #### [facility] [address] [place] [address] Dr. Pratibha StevensonPROF 14(COMP METB)on 87-40-7710Gwlzrcg [Mass/Vol]3.1 g/dL Critically low3.4-5.0The [facility] CenterComment on above:Performed By: #### LACT #### [facility] [address] [place] [address] Dr. Pratibha StevensonAlbumin/Globulin [Mass ratio]1.1 {ratio}NormalThe [facility] CenterComment on above:Performed By: #### LACT #### [facility] [address] [place] [address] Dr. Pratibha Rodrigues [Catalytic activity/Vol]68 U/LRjsbaz68-175Ubl [facility] CenterComment on above:Performed By: #### LACT #### [facility] [address] [place] [address] Dr. Pratibha Lorenzo [Catalytic activity/Vol]25 U/THbdqrh96-72Zdq [facility] CenterComment on above:Performed By: #### LACT #### [facility] [address] [place] [address] Dr. Pratibha Shultz gap [Moles/Vol]11.1 mmol/LNormalThe [facility] on above:Performed By: #### LACT #### [facility] [address] [address] [address] Pratibha StevensonAST [Catalytic activity/Vol]16 U/JEngryr28-92Gsj [facility] CenterComment on above:Performed By: #### LACT #### [facility] [address] [address] [address] Pratibha StevensonBilirubin [Mass/Vol]0.5 mg/dLNormal0.2-1.0The [facility] Comment on above:Performed By: #### LACT #### [facility] [address] [address] [address] Pratibha StevensonCalcium [Mass/Vol]8.6 mg/dLNormal8.5-10.1The [facility] Comment on above:Performed By: #### LACT #### [facility] [address] [address] [address] Pratibha StevensonChloride [Moles/Vol]105 mmol/SVldzih32-220Lhq [facility] Comment on above:Performed By: #### LACT #### [facility] [address] [address] [address] Pratibha StevensonCO2 [Moles/Vol]26.6 mmol/OEwcomj43.0-32.0The [facility] Comment on above:Performed By: #### LACT #### [facility] [address] [address] [address] Pratibha StevensonCreatinine [Mass/Vol]1.12 mg/dLNormal0.70-1.30The [facility] CenterComment on above:Performed By: #### LACT #### [facility] [address] [address] [address] Pratibha ParksGFR-AF CITIZEN OF [place]>60Normal>=60The [facility] CenterComment on above:Performed By: #### LACT #### [facility] [address] [address] [address] Pratibha ParksGFR-NON AF CITIZEN OF [place]>60Normal>=60The [facility] CenterComment on above:Performed By: #### LACT #### [facility] [address] [address] [address] Pratibha StevensonGlobulin (S) [Mass/Vol]2.7 g/dLNormDetwiler Memorial HospitalComment on above:Performed By: #### LACT #### [facility] [address] [place] [address] Dr. Pratibha StevensonGlucose [Mass/Vol]86 mg/vXDjuogt70-524QixTrinity Health System Comment on above:Performed By: #### LACT #### [facility] [address] [place] [address] Dr. Pratibha StevensonPotassium [Moles/Vol]3.7 mmol/LNormal3.5-5.1The [facility] Comment on above:Performed By: #### LACT #### [facility] [address] [place] [address] Dr. Pratibha StevensonProtein [Mass/Vol]5.8 g/dLCritically low6.4-8.2Tr[facility] Health SystemComment on above:Performed By: #### LACT #### [facility] [address] [place] [address] Dr. Pratibha StevensonSodium [Moles/Vol]139 mmol/ATlfgcb593-339EjxTrinity Health System Comment on above:Performed By: #### LACT #### [facility] [address] [place] [address] Dr. Pratibha StevensonUrea nitrogen [Mass/Vol]12.0 mg/dLNormal7.0-18.0Trinity Health SystemComment on above:Performed By: #### LACT #### [facility] [address] [place] [address] Dr. Pratibha Stallings nitrogen/Creatinine [Mass ratio]10.7 mg/mgNoVan Wert County HospitalComment on above:Performed By: #### LACT #### [facility] [address] [place] [address] Dr. Pratibha Jacob KIDNEYSon [id number] KIDNEYSEXAMINATION: US KIDNEYS HISTORY: Kidney stone ; bilateral [...] Electronically authenticated by: SAUMYA MARSH Date: 2022-05-10 08:37NoVan Wert County HospitalXR KUB 1 VIEWon [id number] KUB 1 VIEWEXAM: XR KUB 1 VIEW HISTORY: Left flank [...] Electronically authenticated by: MAUREEN GARDNER Date: 2022-05-10 06:55NoVan Wert County HospitalAMYLASEon [id number] [Catalytic activity/Vol]44 U/L Sunuyt84-726Zvf [facility] CenterComment on above:Performed By: #### CBC #### [facility] [address] [place] [address] Dr. Pratibha Bobo AUTO DIFFon [id number] #0.1 103/ulNormal0.0-0.1The [facility] CenterComment on above:Performed By: #### SSCRN, GRASTCX #### [facility] [address] [place] [address] Dr. Pratibha StevensonBasophils/100 WBC (Bld)0.9 %Normal0.2-2.0The [facility] Comment on above:Performed By: #### SSCRN, GRASTCX #### [facility] [address] [place] [address] Dr. Pratibha Vaca #0.2 103/ulNormal0.0-0.7The [facility] CenterComment on above: Performed By: #### SSCRN, GRASTCX #### [facility] [address] [place] [address] Dr. Pratibha Parksosinophils/100 WBC (Bld)2.6 %Normal0.9-7.0The [facility] Comment on above:Performed By: #### SSCRTian, GRASTCX #### [facility] [address] [place] [address] Dr. Pratibha Parksrythrocyte distribution width (RBC) [Ratio]11.9 %Zvyrlz58.0-15.0 The [facility] CenterComment on above:Performed By: #### SSCRTian, GRASTCX #### [facility] [address] [place] [address] Dr. Pratibha StevensonHematocrit (Bld) [Volume fraction]38.8 %Critically low42.0-54.0 The [facility] CenterComment on above:Performed By: #### SSCRN, GRASTCX #### [facility] [address] [place] [address] Dr. Pratibha StevensonHemoglobin (Bld) [Mass/Vol]13.9 g/dLCritically low14.0-18.0The [facility] on above:Performed By: #### SSCRN, GRASTCX #### [facility] [address] [place] [address] Dr. Pratibha Zarate #0.02 10e3/ulNormal0.00-0.03The Morris HospitalComment on above:Performed By: #### SSCRN, GRASTCX #### [facility] [address] [place] [address] Dr. Pratibha Zarate %0.4 %Normal0.0-0.5The [facility] CenterComment on above: Performed By: #### SSCRN, GRASTCX #### [facility] [address] [place] [address] Dr. Pratibha Mendez #2.0 103/ulNormal1.2-3.8The [facility] HospitalComment on above:Performed By: #### SSCRTian, GRASTCX #### [facility] [address] [place] [address] Dr. Pratibha Engelhocytes/100 WBC (Bld)34.9 %Amfhhh33.5-60.0The [facility] CenterComment on above:Performed By: #### WESRTian, GRASTCX #### [facility] [address] [place] [address] Dr. Pratibha LorenzUAL DIFF REQNONormalThe [facility] CenterComment on above: Performed By: #### WESRTian, GRASTCX #### [facility] [address] [place] [address] Dr. Pratibha Ernst (RBC) [Entitic mass]31.0 iuOtduxw88.9-34.0The [facility] CenterComment on above:Performed By: #### WESRTian, GRASTCX #### [facility] [address] [place] [address] Dr. Pratibha Ernst (RBC) [Mass/Vol]35.8 g/dLCritically high29.9-35.2The [facility] CenterComment on above:Performed By: #### SSCRN, GRASTCX #### [facility] [address] [place] [address] Dr. Pratibha Ernst (RBC) [Entitic vol]86.6 lWOkobgh66.0-94.0The [facility] CenterComment on above:Performed By: #### SSCRN, GRASTCX #### [facility] [address] [place] [address] Dr. Pratibha Victoria #0.4 103/ulNormal0.3-0.8The [facility] CenterComment on above:Performed By: #### SSCRN, GRASTCX #### [facility] [address] [place] [address] Dr. Pratibha Valdezocytes/100 WBC (Bld)6.2 %Normal1.7-12.0The [facility] Comment on above:Performed By: #### SSCRN, GRASTCX #### [facility] [address] [place] [address] Dr. Pratibha Boucher #3.1 103/ulNormal1.4-6.5The [facility] CenterComment on above:Performed By: #### SSCRN, GRASTCX #### [facility] [address] [place] [address] Dr. Pratibha Stevensutrophils/100 WBC (Bld)55.0 %Uyqjaa65.0-75.0The [facility] CenterComment on above:Performed By: #### SSCRTian, GRASTCX #### [facility] [address] [place] [address] Dr. Pratibha Banerjee mean volume (Bld) [Entitic vol]9.7 fLNormal9.5-13.5The [facility] CenterComment on above:Performed By: #### SSCRN, GRASTCX #### [facility] [address] [place] [address] Dr. Pratibha StevensonPLT201 103/qeQmuxwi876-461Rgy [facility] CenterComment on above: Performed By: #### SSCRN, GRASTCX #### [facility] [address] [place] [address] Dr. Pratibha StevensonRBC4.48 106/ulCritically low4.70-6.10The [facility] CenterComment on above:Performed By: #### SSCRN, GRASTCX #### [facility] [address] [place] [address] Dr. Pratibha StevensonWBC5.7 103/ulNormal4.0-11.0The [facility] CenterComment on above: Performed By: #### SSCRN, GRASTCX #### [facility] [address] [address] [address] Pratibha StevensonCULTURE URINEon [id number] URINECulture Observations: NO GROWTH.NormalThe [facility] CenterComment on above:Performed By: #### CBC #### [facility] [address] [place] [address] Dr. Pratibha StevensonLIPASEon 47-65-7722Nyduua [Catalytic activity/Vol]98.0 U/LNormal 73.0-393.0The [facility] CenterComment on above:Performed By: #### CBC #### [facility] [address] [place] [address] Dr. Pratibha StevensonPROF 14(COMP METB)on 66-44-8404Gtdqdpx [Mass/Vol]3.2 g/dL Critically low3.4-5.0The [facility] CenterComment on above:Performed By: #### CBC #### [facility] [address] [place] [address] Dr. Pratibha StevensonAlbumin/Globulin [Mass ratio]1.3 {ratio}NormalThe [facility] CenterComment on above:Performed By: #### CBC #### [facility] [address] [place] [address] Dr. Pratibha Rodrigues [Catalytic activity/Vol]74 U/PColwvo79-240T[facility] Memorial Hospitalment on above:Performed By: #### CBC #### [facility] [address] [place] [address] Dr. Pratibha Lorenzo [Catalytic activity/Vol]25 U/WUqggpm58-32Dkc [facility] CenterComment on above:Performed By: #### CBC #### [facility] [address] [place] [address] Dr. Pratibha Shultz gap [Moles/Vol]10.7 mmol/LNormalThe [facility] Comment on above:Performed By: #### CBC #### [facility] [address] [address] [address] Pratibha StevensonAST [Catalytic activity/Vol]18 U/YZapmyh41-37Mgo [facility] CenterComment on above:Performed By: #### CBC #### [facility] [address] [address] [address] Pratibha StevensonBilirubin [Mass/Vol]0.7 mg/dLNormal0.2-1.0The [facility] Comment on above:Performed By: #### CBC #### [facility] [address] [address] [address] Pratibha StevensonCalcium [Mass/Vol]8.5 mg/dLNormal8.5-10.1The [facility] Comment on above:Performed By: #### CBC #### [facility] [address] [address] [address] Pratibha StevensonChloride [Moles/Vol]106 mmol/TUjdyuz28-541Dck [facility] Comment on above:Performed By: #### CBC #### [facility] [address] [address] [address] Pratibha StevensonCO2 [Moles/Vol]27.1 mmol/LEewlht44.0-32.0The [facility] Comment on above:Performed By: #### CBC #### [facility] [address] [address] [address] Pratibha StevensonCreatinine [Mass/Vol]1.16 mg/dLNormal0.70-1.30The [facility] CenterComment on above:Performed By: #### CBC #### [facility] [address] [place] [address] Dr. Pratibha ParksGFR-AF CITIZEN OF [place]>60Normal>=60The [facility] CenterComment on above:Performed By: #### CBC #### [facility] [address] [address] [address] Pratibha ParksGFR-NON AF CITIZEN OF [place]>60Normal>=60The [facility] CenterComment on above:Performed By: #### CBC #### [facility] [address] [address] [address] Pratibha StevensonGlobulin (S) [Mass/Vol]2.5 g/dLNormDetwiler Memorial HospitalComment on above:Performed By: #### CBC #### [facility] [address] [address] [address] Pratibha StevensonGlucose [Mass/Vol]90 mg/oIMfkivn86-379PxfTrinity Health System Comment on above:Performed By: #### CBC #### [facility] [address] [place] [address] Dr. Pratibha StevensonPotassium [Moles/Vol]3.8 mmol/LNormal3.5-5.1[facility] Comment on above:Performed By: #### CBC #### [facility] [address] [place] [address] Dr. Pratibha StevensonProtein [Mass/Vol]5.7 g/dLCritically low6.4-8.2Trinity Health SystemComment on above:Performed By: #### CBC #### [facility] [address] [address] [address] Pratibha StevensonSodium [Moles/Vol]140 mmol/QYzlqep442-170AhtTrinity Health System Comment on above:Performed By: #### CBC #### [facility] [address] [place] [address] Dr. Pratibha StevensonUrea nitrogen [Mass/Vol]12.0 mg/dLNormal7.0-18.0Trinity Health SystemComment on above:Performed By: #### CBC #### [facility] [address] [address] [address] Pratibha StevensonUrea nitrogen/Creatinine [Mass ratio]10.3 mg/mgNormalThElyria Memorial HospitalComment on above:Performed By: #### CBC #### [facility] [address] [place] [address] Dr. Pratibha StevensonXR KUB 1 VIEWon [id number] KUB 1 VIEWEXAM: XR KUB 1 VIEW HISTORY: Left flank [...] Electronically authenticated by: EDIS HERNÁNDEZ Date: 2022-05-09 05:31NoC[facility]O DIFFon [id number] #0.1 103/ulNormal0.0-0.1The [facility] CenterComment on above:Performed By: #### CBC #### [facility] [address] [address] [address] Pratibha StevensonBasophils/100 WBC (Bld)0.4 %Normal0.2-2.0[facility] Comment on above:Performed By: #### CBC #### [facility] [address] [address] [address] Pratibha Vaca #0.1 103/ulNormal0.0-0.7The [facility] CenterComment on above: Performed By: #### CBC #### [facility] [address] [address] [address] Pratibha Parksosinophils/100 WBC (Bld)1.0 %Normal0.9-7.0The [facility] Comment on above:Performed By: #### CBC #### [facility] [address] [address] [address] Pratibha Parksrythrocyte distribution width (RBC) [Ratio]11.9 %Vtnpcm25.0-15.0 The [facility] CenterComment on above:Performed By: #### CBC #### [facility] [address] [address] [address] Pratibha StevensonHematocrit (Bld) [Volume fraction]47.4 %Bqxnzd21.0-54.0The [facility] CenterComment on above:Performed By: #### CBC #### [facility] [address] [address] [address] Pratibha StevensonHemoglobin (Bld) [Mass/Vol]17.3 g/lNDtqtje40.0-18.0The [facility] CenterComment on above:Performed By: #### CBC #### [facility] [address] [address] [address] Pratibha Zarate #0.05 10e3/ulCritically high0.00-0.03The [facility] Comment on above:Performed By: #### CBC #### [facility] [address] [address] [address] Pratibha Zarate %0.4 %Normal0.0-0.5The [facility] CenterComment on above: Performed By: #### CBC #### [facility] [address] [place] [address] Dr. Pratibha Mendez #2.4 103/ulNormal1.2-3.8The [facility] CenterComment on above:Performed By: #### CBC #### [facility] [address] [address] [address] Pratibha Engelhocytes/100 WBC (Bld)18.6 %Critically low20.5-60.0The [facility] CenterComment on above:Performed By: #### CBC #### [facility] [address] [address] [address] Pratibha LorenzUAL DIFF REQNONormalThe [facility] CenterComment on above: Performed By: #### CBC #### [facility] [address] [address] [address] Pratibha Ernst (RBC) [Entitic mass]31.3 zlKbpzsl17.9-34.0The [facility] CenterComment on above:Performed By: #### CBC #### [facility] [address] [address] [address] Pratibha Ernst (RBC) [Mass/Vol]36.5 g/dLCritically high29.9-35.2The [facility] CenterComment on above:Performed By: #### CBC #### [facility] [address] [address] [address] Pratibha ErnstV (RBC) [Entitic vol]85.7 iAPnrkhp65.0-94.0The [facility] CenterComment on above:Performed By: #### CBC #### [facility] [address] [address] [address] Pratibha Victoria #0.6 103/ulNormal0.3-0.8The [facility] CenterComment on above:Performed By: #### CBC #### [facility] [address] [address] [address] Pratibha Valdezocytes/100 WBC (Bld)5.0 %Normal1.7-12.0[facility] Comment on above:Performed By: #### CBC #### [facility] [address] [place] [address] Dr. Pratibha Boucher #9.6 103/ulCritically high1.4-6.5The [facility] Comment on above:Performed By: #### CBC #### [facility] [address] [place] [address] Dr. Pratibha Stevensutrophils/100 WBC (Bld)74.6 %Srzqlp33.0-75.0The [facility] CenterComment on above:Performed By: #### CBC #### [facility] [address] [place] [address] Dr. Pratibha Olmedolet mean volume (Bld) [Entitic vol]9.6 fLNormal9.5-13.5The [facility] CenterComment on above:Performed By: #### CBC #### [facility] [address] [place] [address] Dr. Pratibha StevensonPLT286 103/exWcsrct678-005Hej [facility] CenterComment on above: Performed By: #### CBC #### [facility] [address] [place] [address] Dr. Pratibha StevensonRBC5.53 106/ulNormal4.70-6.10The [facility] CenterComment on above:Performed By: #### CBC #### [facility] [address] [place], [place] [address] Dr. Pratibha StevensonWBC12.8 103/ulCritically high4.0-11.0The [facility] CenterComment on above:Performed By: #### CBC #### [facility] [address] [place], [place] [address] Dr. Pratibha StevensonCT ABD/PELV W CONon [id number] ABD/PELV W CONEXAM: CT ABD/PELV W CON Comparison: 03/22/2022 CLINICAL [...] Electronically authenticated by: CHAGO ROLLINS Date: 2022-05-08 18:37NormAshtabula County Medical Centere [facility] CenterCovid-19 PCR (CVDTB)on [id number]-CoV-2 (COVID-19) RNA MARIKA+probe Ql (Unsp spec)Not detectedNormalNOT DETECTEDTrinity Health System Comment on above:Result Comment: When diagnostic testing is negative, the [...] for this test is supported by the [place] of Health and Human Service's declaration that circumstances exist to justify the emergency use of in vitro diagnostics for the detection and/or diagnosis of the virus that causes COVID-19. This EUA will remain in effect for the duration of the COVID-19 declaration justifying emergency of IVDs, unless it is terminated or revoked by the FDA (after which the test may no longer be used).Performed By: #### CBC #### [facility] [address] [place] [address] Dr. Pratibha Booth URINE PROFILEon 71-62-2572Thswgtpai Ql (U)SMALLAbnormal NEGATIVETrinity Health SystemComment on above:Performed By: #### CBC #### [facility] [address] [place] [address] Dr. Pratibha Bishop (U)CLEARNormalCLEARTrinity Health SystemComment on above: Performed By: #### CBC #### [facility] [address] [place] [address] Dr. Pratibha Abreu (U)DK. ORANGEAbnormalYELLOWTrinity Health SystemComup health system on above:Performed By: #### CBC #### [facility] [address] [place] [address] Dr. Yilan ChangERUAHDA micrscopic examination will be performed if indicated. NormalThe [facility] CenterComment on above:Performed By: #### CBC #### [facility] [address] [address] [address] Pratibha StevensonGlucose Ql (U)NegativeNormalNEGATIVETrinity Health SystemComment on above:Performed By: #### CBC #### [facility] [address] [address] [address] Pratibha StevensonHemoglobin Ql (U)LARGEAbnormalNEGATIVEProvidence Hospital on above:Performed By: #### CBC #### [facility] [address] [address] [address] Pratibha StevensonKetones Ql (U)TRACEAbnormalNEGATIVETrinity Health SystemComment on above:Performed By: #### CBC #### [facility] [address] [place] [address] Dr. Pratibha StevensonLEUKOCYTESNegativeNormalNEGATIVETrinity Health SystemComment on above:Performed By: #### CBC #### [facility] [address] [place] [address] Dr. Pratibha StevensonNitrite Ql (U)NegativeNormalNEGATIVETrinity Health SystemComment on above:Performed By: #### CBC #### [facility] [address] [place] [address] Dr. Pratibha StevensonpH (U)6.5 [pH]Normal5-9Trinity Health SystemComment on above: Performed By: #### CBC #### [facility] [address] [place] [address] Dr. Pratibha StevensonProtein (U) [Mass/Vol]100 mg/dLAbnormalNEGATIVE/ TRACETrinity Health SystemComment on above:Performed By: #### CBC #### [facility] [address] [place] [address] Dr. Pratibha StevensonSPEC GRAVITY1.324Clwhzt6.005-<=1.025Trinity Health SystemComment on above:Performed By: #### CBC #### [facility] [address] [place] [address] Dr. Pratibha Silveira MICRO INDINDICATEDNormalThe [facility] CenterComment on above: Performed By: #### CBC #### [facility] [address] [place] [address] Dr. Pratibha Hessbilinogen Qn (U)1.0 {Butch'U}/dLNormal0.2 - 1.0The [facility] CenterComment on above:Performed By: #### CBC #### [facility] [address] [place] [address] Dr. Pratibha StevensonLIPASEon 98-59-1597Aynswi [Catalytic activity/Vol]417.0 U/L Critically high73.0-393.0The [facility] CenterComment on above:Performed By: #### LACT #### [facility] [address] [place] [address] Dr. Pratibha StevensonPROF 14(COMP METB)on [id number] [Mass/Vol]4.5 g/dLNormal 3.4-5.0The [facility] CenterComment on above:Performed By: #### LACT #### [facility] [address] [place] [address] Dr. Pratibha StevensonAlbumin/Globulin [Mass ratio]1.3 {ratio}NormalThe [facility] CenterComment on above:Performed By: #### LACT #### [facility] [address] [place] [address] Dr. Pratibha Rodrigues [Catalytic activity/Vol]97 U/PRzucvt84-681Mjr [facility] CenterComment on above:Performed By: #### LACT #### [facility] [address] [place] [address] Dr. Pratibha Lorenzo [Catalytic activity/Vol]35 U/KRtijgt22-55Jdv [facility] CenterComment on above:Performed By: #### LACT #### [facility] [address] [place] [address] Dr. Pratibha Shultz gap [Moles/Vol]13.7 mmol/LNormalThe [facility] Comment on above:Performed By: #### LACT #### [facility] [address] [address] [address] Pratibha StevensonAST [Catalytic activity/Vol]22 U/ADesknl12-80Xtx [facility] CenterComment on above:Performed By: #### LACT #### [facility] [address] [address] [address] Pratibha StevensonBilirubin [Mass/Vol]0.7 mg/dLNormal0.2-1.0The [facility] Comment on above:Performed By: #### LACT #### [facility] [address] [address] [address] Pratibha StevensonCalcium [Mass/Vol]9.6 mg/dLNormal8.5-10.1The [facility] Comment on above:Performed By: #### LACT #### [facility] [address] [address] [address] Pratibha StevensonChloride [Moles/Vol]99 mmol/VIkevdu18-599Bxp [facility] Comment on above:Performed By: #### LACT #### [facility] [address] [address] [address] Pratibha StevensonCO2 [Moles/Vol]29.0 mmol/STnrnwu02.0-32.0The [facility] Comment on above:Performed By: #### LACT #### [facility] [address] [address] [address] Pratibha StevensonCreatinine [Mass/Vol]1.43 mg/dLCritically high0.70-1.30The [facility] CenterComment on above:Performed By: #### LACT #### [facility] [address] [address] [address] Pratibha ParksGFR-AF CITIZEN OF [place]>60Normal>=60The [facility] CenterComment on above:Performed By: #### LACT #### [facility] [address] [address] [address] Pratibha ParksGFR-NON AF QFXNFHYM51 mL/min/1.77f5Cpdnyipikk low>=60The [facility] CenterComment on above:Performed By: #### LACT #### [facility] [address] [address] [address] Pratibha StevensonGlobulin (S) [Mass/Vol]3.5 g/dLNormDetwiler Memorial HospitalComment on above:Performed By: #### LACT #### [facility] [address] [address] [address] Pratibha StevensonGlucose [Mass/Vol]127 mg/dLCritically wquy04-198Jja [facility] CenterComment on above:Performed By: #### LACT #### [facility] [address] [address] [address] Pratibha StevensonPotassium [Moles/Vol]3.7 mmol/LNormal3.5-5.1The [facility] Comment on above:Performed By: #### LACT #### [facility] [address] [place] [address] Dr. Pratibha StevensonProtein [Mass/Vol]8.0 g/dLNormal6.4-8.2The [facility] Comment on above:Performed By: #### LACT #### [facility] [address] [place] [address] Dr. Pratibha StevensonSodium [Moles/Vol]138 mmol/QNjlcyh690-545Qgd [facility] Comment on above:Performed By: #### LACT #### [facility] [address] [place] [address] Dr. Pratibha StevensonUrea nitrogen [Mass/Vol]13.0 mg/dLNormal7.0-18.0The [facility] CenterComment on above:Performed By: #### LACT #### [facility] [address] [place] [address] Dr. Pratibha Stallings nitrogen/Creatinine [Mass ratio]9.1 mg/mgNoVan Wert County HospitalComment on above:Performed By: #### LACT #### [facility] [address] [address] [address] Pratibha Wynn MICROSCOPIC ONLYon 23-91-5601PQSHTRYJLLJJ SEENNormalNONE SEENThe [facility] CenterComment on above:Performed By: #### CBC #### [facility] [address] [place] [address] Dr. Pratibha Herrera identified Cx Nom (U)NOT INDICATEDNormalThe [facility] CenterComment on above:Performed By: #### CBC #### [facility] [address] [place] [address] Dr. Pratibha Ross SEENNormalNONE SEENTrinity Health SystemComment on above:Performed By: #### CBC #### [facility] [address] [place] [address] Dr. Pratibha Garcia LM Nom (Urine sed)NONE SEENNormalNONE SEENThe [facility]view Medical CenterComment on above:Performed By: #### CBC #### [facility] [address] [place] [address] Dr. Pratibha Garciathelial cells LM Ql (Urine sed)FEWAbnormalNONE SEEN /RAREThe [facility]view Medical CenterComment on above:Performed By: #### CBC #### [facility] [address] [place] [address] Dr. Pratibha ReyesCOUSTRACEAbnormalNONE SEENTrinity Health SystemComup health system on above:Performed By: #### CBC #### [facility] [address] [place] [address] Dr. Pratibha DeC (U) [#/Vol]/uLAbnormal0-2The [facility] CenterComup health system on above:Performed By: #### CBC #### [facility] [address] [place] [address] Dr. Pratibha Collier2-5AbnormalNONE SEENTrinity Health SystemComup health system on above: Performed By: #### CBC #### [facility] [address] [place] [address] Dr. Pratibha StevensonXR CHEST 1 Von 23-68-4594FM CHEST 1 VXR CHEST 1 V CLINICAL: Left flank pain COMPARISON: No prior studies are available. TECHNIQUE: AP upright chest radiograph obtained. FINDINGS: Heart size and pulmonary vasculature are within normal limits. No airspace infiltrate, consolidation, effusion or pneumothorax. Osseous structures appear intact. IMPRESSION: No acute cardiac or pulmonary findings. Electronically authenticated by: RAMO ZEPEDA Date: 2022-05-08 17:40NormalThe [facility] AUTO DIFFon [id number] #0.1 103/ulNormal0.0-0.1The [facility] Medical CenterComment on above:Performed By: #### CBC #### [facility] [address] [address] [address] Pratibha StevensonBasophils/100 WBC (Bld)0.9 %Normal0.2-2.0The [facility] Comment on above:Performed By: #### CBC #### [facility] [address] [address] [address] Pratibha Vaca #0.1 103/ulNormal0.0-0.7The [facility] Medical CenterComment on above: Performed By: #### CBC #### [facility] [address] [place] [address] Dr. Pratibha Parksosinophils/100 WBC (Bld)1.7 %Normal0.9-7.0The [facility] Comment on above:Performed By: #### CBC #### [facility] [address] [address] [address] Pratibha Parksrythrocyte distribution width (RBC) [Ratio]12.3 %Dejaba37.0-15.0 The [facility]view Medical CenterComment on above:Performed By: #### CBC #### [facility] [address] [address] [address] Pratibha StevensonHematocrit (Bld) [Volume fraction]47.2 %Sovkxc45.0-54.0The [facility] Medical CenterComment on above:Performed By: #### CBC #### [facility] [address] [address] [address] Pratibha StevensonHemoglobin (Bld) [Mass/Vol]16.0 g/sQJcheat92.0-18.0The [facility] Medical CenterComment on above:Performed By: #### CBC #### [facility] [address] [place] [address] Dr. Pratibha Zarate #0.03 10e3/ulNormal0.00-0.03The [facility] Hospitalment on above:Performed By: #### CBC #### [facility] [address] [address] [address] Pratibha Zarate %0.4 %Normal0.0-0.5The [facility] CenterComup health system on above: Performed By: #### CBC #### [facility] [address] [place] [address] Dr. Pratibha Mendez #2.5 103/ulNormal1.2-3.8The [facility] Medical CenterComment on above:Performed By: #### CBC #### [facility] [address] [place] [address] Dr. Pratibha Engelhocytes/100 WBC (Bld)30.4 %Vfhslx05.5-60.0[facility] on above:Performed By: #### CBC #### [facility] [address] [place] [address] Dr. Pratibha Johnson DIFF REQNONormalThe [facility] Medical CenterComment on above: Performed By: #### CBC #### [facility] [address] [place] [address] Dr. Pratibha Knox (RBC) [Entitic mass]30.9 ufSkcpol58.9-34.0The [facility] on above:Performed By: #### CBC #### [facility] [address] [place] [address] Dr. Pratibha Ernst (RBC) [Mass/Vol]33.9 g/pSExpqps11.9-35.2The [facility] Hospitalment on above:Performed By: #### CBC #### [facility] [address] [place] [address] Dr. Pratibha Ernst (RBC) [Entitic vol]91.3 hHVbfvpo36.0-94.0The [facility] on above:Performed By: #### CBC #### [facility] [address] [place] [address] Dr. Pratibha Victoria #0.6 103/ulNormal0.3-0.8The [facility] Medical CenterComment on above:Performed By: #### CBC #### [facility] [address] [place] [address] Dr. Pratibha Valdezocytes/100 WBC (Bld)7.6 %Normal1.7-12.0The [facility] Comment on above:Performed By: #### CBC #### [facility] [address] [place] [address] Dr. Pratibha StevensUT #4.8 103/ulNormal1.4-6.5The [facility] Medical CenterComment on above:Performed By: #### CBC #### [facility] [address] [place] [address] Dr. Pratibha Stevensutrophils/100 WBC (Bld)59.0 %Dtyrml20.0-75.0The [facility] Medical CenterComment on above:Performed By: #### CBC #### [facility] [address] [place] [address] Dr. Pratibha Olmedolet mean volume (Bld) [Entitic vol]10.2 fLNormal9.5-13.5The [facility] Medical CenterComment on above:Performed By: #### CBC #### [facility] [address] [place] [address] Dr. Pratibha StevensonPLT258 103/veOtyhxb004-502Tgb [facility] CenterComment on above: Performed By: #### CBC #### [facility] [address] [place] [address] Dr. Pratibha StevensonRBC5.17 106/ulNormal4.70-6.10The [facility] Medical CenterComment on above:Performed By: #### CBC #### [facility] [address] [place] [address] Dr. Pratibha StevensonWBC8.1 103/ulNormal4.0-11.0The [facility] Medical CenterComment on above: Performed By: #### CBC #### [facility] [address] [place] [address] Dr. Pratibha StevensonCT ABD/PELVIS WO CONon [id number] ABD/PELVIS WO CONEXAMINATION: CT ABD/PELVIS WO CON, 03/22/2022 10:27 PM [...] Electronically authenticated by: SHARON GODINEZ Date: 2022-03-22 23:40[facility] HospitalPROF 14(COMP METB)on 15-55-7685Hpxandt [Mass/Vol]4.2 g/dLNormal 3.4-5.0The [facility] on above:Performed By: #### LACT #### [facility] [address] [place] [address] Dr. Pratibha StevensonAlbumin/Globulin [Mass ratio]1.2 {ratio}NormalThe [facility] on above:Performed By: #### LACT #### [facility] [address] [place] [address] Dr. Pratibha Rodrigues [Catalytic activity/Vol]84 U/BRvvrsg65-170Zdp [facility] on above:Performed By: #### LACT #### [facility] [address] [place] [address] Dr. Pratibha Lorenzo [Catalytic activity/Vol]32 U/VRunrzs60-01Ojj Morris HospitalComment on above:Performed By: #### LACT #### [facility] [address] [address] [address] Pratibha Santoson gap [Moles/Vol]10.6 mmol/LNormalThe [facility] Comment on above:Performed By: #### LACT #### [facility] [address] [address] [address] Pratibha StevensonAST [Catalytic activity/Vol]18 U/KIaaiky02-02Irf [facility] CenterComment on above:Performed By: #### LACT #### [facility] [address] [address] [address] Pratibha StevensonBilirubin [Mass/Vol]0.4 mg/dLNormal0.2-1.0The [facility] Comment on above:Performed By: #### LACT #### [facility] [address] [address] [address] Pratibha StevensonCalcium [Mass/Vol]9.8 mg/dLNormal8.5-10.1The [facility] Comment on above:Performed By: #### LACT #### [facility] [address] [address] [address] Pratibha StevensonChloride [Moles/Vol]103 mmol/AIkkchg18-076Cde [facility] Comment on above:Performed By: #### LACT #### [facility] [address] [address] [address] Pratibha StevensonCO2 [Moles/Vol]28.2 mmol/FUqypqe64.0-32.0The [facility] Comment on above:Performed By: #### LACT #### [facility] [address] [address] [address] Pratibha StevensonCreatinine [Mass/Vol]1.24 mg/dLNormal0.70-1.30The [facility] Medical CenterComment on above:Performed By: #### LACT #### [facility] [address] [address] [address] Mckinnon ChangEGFR-AF CITIZEN OF [place]>60Normal>=60The [facility] Medical CenterComment on above:Performed By: #### LACT #### [facility] [address] [address] [address] Pratibha ParksGFR-NON AF CITIZEN OF [place]>60Normal>=60The [facility] Medical CenterComment on above:Performed By: #### LACT #### [facility] [address] [address] [address] Pratibha StevensonGlobulin (S) [Mass/Vol]3.6 g/dLNormDetwiler Memorial HospitalComment on above:Performed By: #### LACT #### [facility] [address] [address] [address] Pratibha StevensonGlucose [Mass/Vol]102 mg/mKDcutxo89-335Mum [facility] Comment on above:Performed By: #### LACT #### [facility] [address] [place] [address] Dr. Pratibha StevensonPotassium [Moles/Vol]3.8 mmol/LNormal3.5-5.1The [facility] Comment on above:Performed By: #### LACT #### [facility] [address] [place] [address] Dr. Pratibha StevensonProtein [Mass/Vol]7.8 g/dLNormal6.4-8.2The [facility] Comment on above:Performed By: #### LACT #### [facility] [address] [place] [address] Dr. Pratibha StevensonSodium [Moles/Vol]138 mmol/QOprtyh105-506Xky [facility] Comment on above:Performed By: #### LACT #### [facility] [address] [place] [address] Dr. Pratibha StevensonUrea nitrogen [Mass/Vol]18.0 mg/dLNormal7.0-18.0The [facility] Medical CenterComment on above:Performed By: #### LACT #### [facility] [address] [place] [address] Dr. Pratibha Stallings nitrogen/Creatinine [Mass ratio]14.5 mg/mgNormDetwiler Memorial HospitalComment on above:Performed By: #### LACT #### [facility] [address] [address] [address] Pratibha Stevenson Vital Signs Date TimeVital SignValuePerforming WivhzllfaVnycwovh16-52-6944 10:29-0400 Diastolic blood mm[Hg]Latricia Garcia MD Work Phone: [phone]07-15-2025 10:29-0400 Systolic blood errpkjwe442 mm[Hg]Latricia Garcia MD Work Phone: [phone] [place], [place] 6654807-15-2025 10:20-0400 Body zjutoi367.26 cmDokim Garcia MD Work Phone: [phone] [place], [place] 6654807-15-2025 10:20-0400 Body mass index (BMI) [Ratio]31.4 kg/o7IrgoifzLatricia Garcia MD Work Phone: [phone]07-15-2025 10:20-0400 Body .61 kgLatricia Garcia MD Work Phone: [phone])[address]07-15-2025 10:20-0400 Heart rate69 /Rajendra Garcia MD Work Phone: [phone])[facility] [place], [place] [address]7-15-2025 10:20-0400 Respiratory rate16 /Rajendra Garcia MD Work Phone: [phone] [place], [place] 6654807-15-2025 10:20-0400 SaO2% (BldA) [Mass fraction]99 %Latricia Garcia MD Work Phone: [phone] [place], [place] [address]2302-12-2025 10:48-0500 Body .3 cmAntpretty Meek PA-C Work Phone: [facility] Zvclxa19-78-5063 10:48-0500Body mass index (BMI) [Ratio]33.82 kg/g9EikkvyyArmando Meek PA-C Work Phone: [facility] Jyusxj36-77-0546 10:48-0500Body cpyztt950.87 kgArmando Meek PA-C Work Phone: [facility] Srnyjf88-72-1331 10:48-0500Diastolic blood diwxdeqt44 mm[Hg]Armando Meek PA-C Work Phone: [facility] nprogress Nlcqzo99-23-4853 10:48-0500Heart rate 69 /minArmando Meek PA-C Work Phone: [facility] nprogress Eeorcp12-70-7158 10:48-0500Systolic blood eqxcrytk495 mm[Hg]Armando Meek PA-C Work Phone: [facility]01-17-2025 08:48-0500Body flloiw278.3 cmLisa Ceballos MD Work Phone: [phone] Puodvv63-02-2287 08:48-0500Body mass index (BMI) [Ratio]33.65 kg/j9LypblLisa Ceballos MD Work Phone: [phone] Yazhdo18-63-1020 08:48-0500Body lctuoe905.42 kgLisa Ceballos MD Work Phone: [phone] [place], [place] [address]Apruve Wxobcr62-32-8255 08:48-0500Diastolic blood quihjduo92 mm[Hg]Lisa Ceballos MD Work Phone: [phone] [address] Wywowe56-94-5891 08:48-0500Heart rate 75 /minLisa Ceballos MD Work Phone: [phone] Rocwol57-95-9384 08:48-8383MhT9% (BldA) [Mass fraction]97 %Lisa Ceballos MD Work Phone: [phone]. [facility]ans HospitalApruve Vghgic58-00-8906 08:48-0500Systolic blood wyoqfrku290 mm[Hg]Lisa Ceballos MD Work Phone: [phone] [address] StreetP[address] Iverqn07-90-4997 09:12-0500Body oiusav412.3 cmAarsenio Meek PA-C Work Phone: [facility] Yinlev24-37-8833 09:12-0500Body mass index (BMI) [Ratio]32.03 kg/x4CxogtpaArmando Meek PA-C Work Phone: [facility]12-20-2024 09:12-0500Body .43 kgArmando Meek PA-C Work Phone: [facility] Umabxh11-36-6377 09:12-0500Diastolic blood tfhqqryo33 mm[Hg]Armando Meek PA-C Work Phone: [facility] Uddpiy42-85-9049 09:12-0500Heart rate 88 /minArmando Meek PA-C Work Phone: [facility]12-20-2024 09:12-0500Systolic blood sdgllbla797 mm[Hg]Armando Meek PA-C Work Phone: [facility] Aflrvv64-29-3673 15:20-0500Body .3 Bekah Torres MD Work Phone: [facility] Umwmfx24-29-0208 15:20-0500Body mass index (BMI) [Ratio]31.94 kg/j6YwoxxCiera Torres MD Work Phone: [facility]12-13-2024 15:20-0500Body ohcgpziwqgm38.1 [degF]Ciera Torres MD Work Phone: [facility]12-13-2024 15:20-0500Body xxpsqa77.16 kgCiera Torres MD Work Phone: [facility] Augdro54-79-4131 15:20-0500Diastolic blood emwdvlid12 mm[Hg]Ciera Torres MD Work Phone: [facility]12-13-2024 15:20-0500Heart rate 82 /minCiera Torres MD Work Phone: [facility]12-13-2024 15:20-8807ApH2% (BldA) [Mass fraction]99 %Ciera Torres MD Work Phone: [facility]12-13-2024 15:20-0500Systolic blood ezluhbks547 mm[Hg]Ciera Torres MD Work Phone: [facility] nprogress Cnmgkr76-76-4792 10:17-0500Body .3 cmLisa Ceballos MD Work Phone: [facility]12-09-2024 10:17-0500Body mass index (BMI) [Ratio]32.34 kg/u3IlwlyLisa Ceballos MD Work Phone: [facility]12-09-2024 10:17-0500Body zigdnl69.34 kgLisa Ceballos MD Work Phone: [facility]12-09-2024 10:17-0500Diastolic blood ghjxwsae71 mm[Hg]Lisa Ceballos MD Work Phone: [facility]12-09-2024 10:17-0500Heart rate 80 /minLisa Ceballos MD Work Phone: [facility]12-09-2024 10:17-7714DzH1% (BldA) [Mass fraction]97 %Lisa Ceballos MD Work Phone: [facility] nprogress Prvqlm46-73-5678 10:17-0500Systolic blood cqrkytch558 mm[Hg]Lisa Ceballos MD Work Phone: [facility]11-26-2024 09:05-0500Body .3 April Meek PA-C Work Phone: [facility] nprogress Jizmms13-61-9006 09:05-0500Body mass index (BMI) [Ratio]32.22 kg/q1CseehvjArmando Meek PA-C Work Phone: [facility]11-26-2024 09:05-0500Body qedwhe31.97 kgArmando Meek PA-C Work Phone: [facility] nprogress Trriye92-88-4356 09:05-0500Diastolic blood jxhndnum24 mm[Hg]Armando Meek PA-C Work Phone: [facility] nprogress Ptodla90-06-9506 09:05-0500Heart rate 71 /minArmando Meek PA-C Work Phone: [facility]11-26-2024 09:05-0500Systolic blood yckiaiqj021 mm[Hg]Armando Meek PA-C Work Phone: [facility]11-02-2024 11:02-0400Body zpyocmjswnu23.8 [degF]Kym Vidal MD Work Phone: [phone]11-02-2024 11:02-0400Diastolic blood qtmpfnuz74 mm[Hg]Kym Vidal MD Work Phone: [phone]11-02-2024 11:02-0400Heart rate83 /Sia Vidal MD Work Phone: [phone]-[facility]11-02-2024 11:02-0400 Respiratory rate16 /Sia Vidal MD Work Phone: [phone]M11-02-2024 11:02-4712YrB0% (BldA) [Mass fraction]98 %Kym Vidal MD Work Phone: [phone]11-02-2024 11:02-0400Systolic blood awzsvbzk994 mm[Hg]Kym Vidal MD Work Phone: [facility]11-01-2024 03:44-0400Body mass index (BMI) [Ratio]31.82 kg/m2NyrbfKym Vidal MD Work Phone: [facility]11-01-2024 03:44-0400Body .75 kgKym Vidal MD Work Phone: [facility]10-29-2024 00:30-0400Body rrhyfz172.3 Fatoumata Vidal MD Work Phone: [phone]03-23-2023 08:57-0400Blood Pressure LocationKathy Lue [facility]03-23-2023 08:57-0400Diastolic blood zwaessrw67 mm[Hg]Shirley Lue [facility]03-23-2023 08:57-0400Heart rate74 /minKathy Lue [facility]03-23-2023 08:57-0400Systolic blood uljcfzgc349 mm[Hg]Shirley Lue [facility]03-15-2023 09:17-0400Blood Pressure LocationKathy Lue [facility]03-15-2023 09:17-0400Diastolic blood mmmexmpr05 mm[Hg]Shirley Lue [facility]03-15-2023 09:17-0400Heart rate73 /minKathy Lue [facility]03-15-2023 09:17-0400Systolic blood ziilevcu513 mm[Hg]Shirley Lue [facility] Encounters Encounter DateEncounter TypeCare ProviderFacilityStart: 11-12-2024 End: 84-90-7455jaoexjotrcGftjnpw M Hoy MD Work Phone: [facility] Work Phone: Start: 11-12-2024 End: 74-42-1719Sdspdqo encounter Hector Durand MD-[facility] Work Phone: Start: 09-30-2024 End: 62-20-8341fdlkmuufmnIPWTERQ M HOYMercy Davis City HospitalStart: 09-30-2024 End: 06-15-1948Uhkwqqyvsj hospital visit by physicianC[facility] Non-Invasive CardiologyComment on above:Syncope, unspecified syncope type Start: 09-04-2024 End: 86-72-3939wgbzkysrbeLtczila R NILLFacility:[facility] HospitalevueStart: 08-20-2024 ambulatoryMichael NILLFacility:[facility] HospitalueStart: 07-15-2024 End: 28-79-3099HghmlkYiegn [facility] Physicians NeurologyComment on above:Migraine without aura and without status migrainosus, not intractable Start: 06-13-2024 End: 80-73-7331Tfsvzgqqz encounterScharlie TeeProMedica Physicians Neurology Comment on above:New PatientStart: 06-12-2024 End: 38-03-9083Gwveqv outpatient visit 40 minutesArmando Meek PA-C Work Phone: [facility] Physicians Neurology [place]Comment on above:Psychogenic nonepileptic seizure (Primary Dx); Seizure-like activity (CMS-HCC); Multiple personality disorder (CMS-HCC); Migraine without aura and without status migrainosus, not intractable; Functional tremorStart: 06-12-2024 End: 07-62-3468qdlyoqttztVFASAIHThe [facility] Start: 05-30-2024 End: 44-38-2109Mrfafysfs encounterAddie CarusoSt. Alb[facility] HospitalMedimi [facility]icians Neurology Comment on above:SeizuresStart: 05-17-2024 End: 13-78-8408Xghvmc outpatient visit 15 minutesLisa Ceballos MD Work Phone: [facility] Physicians CardiologyComment on above: Recurrent syncope (Primary Dx)Start: 05-17-2024 End: 86-86-0548yvewgvriglUPUJZMalissa MATHIASSaint Francis Medical Centersona Upland HospitalStart: 05-16-2024 End: 37-69-6022Hlstkhjpf encounterDiana Ledbetter CMAAvita Health System [facility] Hospital Physicians CardiologyStart: 05-09-2024 End: 11-48-9394ptaxsjfqdhMWGKQTF [facility] HospitalStart: 04-19-2024 End: 26-71-8108nphohmupygMFZWVUD C [facility] HospitalStart: 04-19-2024 End: 55-51-6030Kkxkbk outpatient visit 25 minutesArmando Meek PA-C Work Phone: [facility] NeurologyComment on above: Migraine without aura and without status migrainosus, not intractable (Primary Dx); Seizure-like activity ([facility]-HCC); Functional tremorStart: 04-12-2024 End: 29-22-0669Btdmwo outpatient new 30 minutesCiera Torres MD Work Phone: [facility] - Medical OncologyComment on above:Pancytopenia ([facility]-HCC)Start: 04-12-2024 End: 64-10-2782pyqykogwhiHDDUV [facility] HospitalStart: 04-11-2024 End: 60-15-7440Deyuncrmm department patient visitDOUGRINA [facility] HospitalStart: 04-09-2024 End: 01-00-8694ewbfklcrksQWFUDSt. Tammany Parish Hospital HospitalStart: 04-09-2024 End: 10-16-3715rnqtxjqxypLNFGMSt. Tammany Parish Hospital HospitalStart: 04-08-2024 End: 44-66-7731Dubgxc outpatient new 45 minutesLisa Ceballos MD Work Phone: [facility] CardiologyComment on above: Recurrent syncope (Primary Dx); Seizure ([facility]-HCC)Start: 04-08-2024 End: 27-84-2952wlqhbzbymdAFHEAMemorial Regional Hospital South HospitalStart: 04-05-2024 End: 94-62-8177Qsirdterp encounterDiana Ledbetter CMAProMedica Physicians CardiologyStart: 04-03-2024 End: 58-73-6256rwuinathteBYGCXWX C [facility] HospitalStart: 04-01-2024 End: 28-15-7166Mjreflfzn encounterSgillian DoshiWhite Hospitalca Physicians Neurology Comment on above:information wrong on referralStart: 03-27-2024 End: 95-44-8737Hdimayalu encounterOriana Bashir Physicians NeurologyComment on above:prior authorizationStart: 03-26-2024 End: 85-65-3194siodzmujieHXLZYLM C HAMILTONWhite Hospitalconnor Upland HospitalStart: 03-26-2024 End: 53-76-5665Pqdsbq outpatient new 60 minutesAnthadan Meek PA-C Work Phone: [facility] Physicians NeurologyComment on above:Seizure (CMS-HCC) (Primary Dx); Migraine without aura and without status migrainosus, not intractable; Status migrainosus; Recurrent syncope; Pancytopenia (CMS-HCC); Functional tremorStart: 03-25-2024 End: 41-84-9928Zrbdljitc encounterDadidier PhilipAvita Health System [facility] Hospital Physicians NeurologyComment on above:REFERRALStart: 02-27-2024 End: 24-47-7970Hzxuaernia and management of inpatientSdesi Vidal MD Work Phone: [facility] Neurosciences 4AComment on above:Pancytopenia (HCC) (Primary Dx); Hip pain, unspecified lateralityStart: 02-26-2024 End: 39-27-6747Mppkgfeee department patient visitDOKIM Martínez HospitalStart: 06-14-2023 End: 28-00-6080Qtiaczzjsq hospital visit by Constantino MorrisonpergerMTHZ Physical TherapyComment on above:ArrivedStart: 06-12-2023 End: 98-72-7737Recmjlaqml hospital visit by Constatnino MorrisonpergerMTHZ Physical TherapyComment on above:ArrivedStart: 06-09-2023 End: 11-56-8902Gvousfqdbf hospital visit by Skylar Goodwin PTAMTHZ Physical TherapyComment on above:ArrivedStart: 08-11-2022 End: 58-08-2800udfecnfhqjTL DOUGLAS HOY .Facility:I7Enpde: 07-22-2022 End: 47-14-4743xpweuxujtdDZ LATRICIA HOY .Facility:B7Wfflm: 07-21-2022 End: 30-75-4217Kmgfals encounter procedureShirley Murrell [facility] Desiree Start: 07-20-2022 End: 49-22-2713tympbwkyhpFP LATRICIA HOY .Facility:W3Cmpqb: 07-13-2022 End: 17-21-8457Lcqxwpt encounter procedureShirley Murrell [facility] Piedad start: 07-06-2022 End: 32-81-4626oipeyqprsoYSMRB M JOLLYLala .Facility:E0Kbnsu: 05-23-2022 End: 46-09-6112Ebeatmf encounter procedureRafaelamaria del rosario Murrell [facility] Start: 05-08-2022 End: 91-45-1844xvlwtgrkjqAR LATRICIA HOY .Facility:J4Piwyj: 03-23-2022 End: 29-74-0052amacoziorgNB LATRICIA HOY .Facility: Procedures DateProcedureProcedure DetailPerforming ClinicianStart: 00-36-4450Szlubxhmtfnjvd function eval w/tilt table w/mntrDokim Garcia MD Work Phone: Start: 89-80-2960Rgrdzy-up visitFollow-[facility] FacilityNTHODELMY Bonilla HAMILTONStart: 56-31-2249Klnpkk-up visitFollow-upANTHODELMY Bonilla HAMILTONStart: 02-26-5132Voifu depression screening assessmentArmando Meek PA-C Work Phone: Start: 60-18-3733Pigzik ecg 1-3 leads w/interpretation & reportUnknown Provider ResultStart: 16-39-8146Vruep gap [Moles/Vol]Maureen Hampton DO Work Phone: Start: 59-94-0365Naoxp metabolic panel calcium total Maureen Hampton DO Work Phone: Start: 40-01-5516CHRVQMDWNJ FILTRATION RATE, ESTIMATED Maureen Hampton DO Work Phone: Start: 46-98-3025YFNP OF BLOOD SMEARJenny Alvarez RAIL CAR OPERATOR - [facility] Work Phone: Start: 20-13-1067Hzvljt ecg 1-3 leads w/interpretation & reportUnknown Provider ResultStart: 74-12-5283GSRKBET MALIGNANCIES MUTATION PANELSrohan Wyman MD Work Phone: Start: 82-93-8581Kisvvxpwek bone marrow biopsies Jenny Alvarez [facility] Work Phone: Start: 35-16-5284Gjcura ecg 1-3 leads w/interpretation & reportUnknown Provider ResultStart: 82-16-0780Banwv count complete auto&auto difrntl wbcJenny Alvarez RAIL CAR OPERATOR - [facility] Work Phone: Start: 76-88-3154EERE OF BLOOD SMEARJenny Alvarez RAIL CAR OPERATOR - [facility] Work Phone: Start: 02-29-2024 End: 37-91-7759Jru routine ecg w/least 12 lds i&r onlyRuth Wyman MD Work Phone: Start: 80-78-2031Qnboc smear peripheral interp phys w/writ reportJenny Alvarez RAIL CAR OPERATOR - [facility] Work Phone: Start: 22-70-1291WJDGNPRDMX QUAL BCR-ABL1 ASSAY W REFLEX TO P190 OR P210 QUANT ASSAYSJenny Alvarez RAIL CAR OPERATOR - [facility] Work Phone: Start: 11-65-9132Lgbtwxa ionizedMichael Wei Forbes DO Work Phone: Start: 77-93-1826Ypggi gap [Moles/Vol]Chapis Rizvi MD Work Phone: Start: 12-86-8632Cceay metabolic panel calcium total Bakar Y Yasin MD Work Phone: Start: 66-48-4365FZZRSRJJHN FILTRATION RATE, ESTIMATED Chapis Rizvi MD Work Phone: Start: 51-60-6442Xbqadpw function Taina Wyman MD Work Phone: [phone]: 16-50-1048CKUZ OF BLOOD SMEARChapis Rizvi MD Work Phone: Start: 36-74-3358Ozf routine ecg w/least 12 lds trcg only w/o i&Eleonroa Wyman MD Work Phone: Start: 89-72-0132WVMUHJP VARNER VIRUS (EBV) ANTIBODY PANEL Timothy Ambrosio RAIL CAR OPERATOR - [employer] Work Phone: Start: 37-60-9474Ahw brain brain stem w/o w/contrast materialJecristiana Russoters RAIL CAR OPERATOR - [employer] Work Phone: Start: 02-28-2024 End: 42-43-4258Iuw routine ecg w/least 12 lds trcg only w/o i&Eleonora Wyman MD Work Phone: Start: 52-61-7915Ycpilpjrh virus A and B RNA and SARS-CoV-2 (COVID-19) N gene panel - Respiratory specimen by MARIKA with probe detectionChapis Rizvi MD Work Phone: Start: 07-87-4564Lttlpjem hiv-1&hiv-2 single result Chapis Rizvi MD Work Phone: Start: 14-93-5076Vjzuo gap [Moles/Vol]Jenny Gunter RAIL CAR OPERATOR - [employer] Work Phone: Start: 66-10-8086ZHCXOHROQC FILTRATION RATE, ESTIMATED Jenny Gunter RAIL CAR OPERATOR - [employer] Work Phone: Start: 04-56-7450Zahlnsy dehydrogenase ldhSeth Wilda WILEY Work Phone: Start: 27-93-9314PZCPVGW B12 & FOLATEErin K Hebert [facility] Work Phone: Start: 85-73-8838RUM 24 HOUR AMBULATORYJenny Gunter [facility] Work Phone: Start: 96-94-4163Zbzwkcwositmmajtkxhx w/rec awake&asleepJenny Gunter [facility] Work Phone: Start: 02-27-2024 End: 98-60-0218F-reactive proteinBarak Colon MD Work Phone: Start: 02-27-2024 End: 13-95-2840Bezphpi ionizedJenny Gunter [facility] Work Phone: Start: 61-51-8611GRYFVOGKU LAB SAMPLEJenny Gunter [facility] Work Phone: Start: 98-83-3809Izjer dip stick/tablet reagent auto microscopyJenny Gunter [facility] Work Phone: Start: 02-27-2024 End: 85-03-9988Damhcu ecg 1-3 leads w/interpretation & reportUnknown Provider ResultStart: 14-87-3236Unjtuyfryvg removal of ureteric stentKathy Lue Start: 06-23-7244Enaevuglxfy laser lithotripsy of ureteric calculusKathy Lue Plan of Treatment DateCare ActivityDetailAuthorStart: 58-41-3064Tskir BMI ScreeningAdult BMI ScreeningProMedica Health SystemStart: 51-57-1505Mqhaguj ScreeningTobacco ScreeningProMedica Health SystemStart: 17-90-2220Glbjn BMI ScreeningAdult BMI ScreeningProMedica Health SystemStart: 18-67-9713Dassnjw ScreeningTobacco ScreeningProMedica Health SystemStart: 53-43-6702Xpibw BMI ScreeningAdult BMI ScreeningProMedica Health SystemStart: 82-40-8567Jgtqtpw ScreeningTobacco ScreeningProMedica Health SystemStart: 15-10-1501Swrku BMI ScreeningAdult BMI ScreeningProEast [facility] SystemStart: 82-93-2157Gohiiby ScreeningTobacco ScreeningMercy Health Lorain Hospital SystemStart: 67-04-0173Jxjzp BMI ScreeningAdult BMI ScreeningProEast [facility] SystemStart: 44-08-7405Jyfwt BMI ScreeningAdult BMI ScreeningProEast [facility] SystemStart: 10-26-9001Rimthitfxb ScreeningDepression ScreeningProEast [facility] SystemStart: 84-18-4071Fccvdrqix vaccinationFlu vaccine (Season Ended)[facility] AmericaStart: 09-10-2024 End: 23-52-6236Purvicd encounter uspyrlass96/13/2025 9:00 AM EDT Office Visit [facility] [place] [address] [place] [phone] Armando Meek PA-C [address] [place] [phone] [facility]art: 08-29-2024 End: 64-34-7923Cmlxonn encounter procedureProMedica Physicians NeurologyStart: 06-19-2024 End: 05-64-2560Jkvmpwu encounter jvmjetask84/19/2025 9:30 AM EST Office Visit [facility] [address] [place] [phone] Armando Meek PA-C [address] [place] [address] [facility] Start: 06-12-2024 End: 09-81-1795Zcpoqhu encounter fdzgfxcca15/12/2025 11:00 AM EST Office Visit [facility] [place] [address] [place] [phone] Armando Meek PA-C [address] [place] [phone] (Work) [facility]art: 05-17-2024 End: 58-21-1784Strfhhp encounter sdzhmeixs44/17/2025 9:00 AM EST Office Visit [facility] [address] [place] [phone] Lisa Ceballos MD [address] [place], [place] [phone] [facility] CardiologyStart: 04-19-2024 End: 15-88-5738Mvhaqub encounter yudzdnqhq11/20/2024 9:00 AM EST Office Visit [facility] [address] [place] [phone] Armando Meek, PAJorge LC [address] [place] [phone] [facility] Start: 04-12-2024 End: 44-22-0685Emvkdcu encounter /13/2024 3:30 PM EST Office Visit [facility] On[facility] [address] [place] [phone] Ciera Torres MD [address] [facility] [address] [place] [phone] [facility] - Medical OncologyStart: 04-09-2024 End: 01-14-8119Lpapkjl encounter procedureProOhio State University [facility] - CardiovascularStart: 04-08-2024 End: 54-94-4660Uszw complete W/O contrastEcho complete W/O contrast Echocardiography Routine Recurrent syncope Expected: 04/08/2024, Expires: 04/08/2025[facility] Work Phone: Comment on above:Expected: 04/08/2024, Expires: 04/08/2025Start: 04-08-2024 End: 47-64-3786Bxewza monitor studyHolter monitor 24-48 hour Cardiac Services Routine Recurrent syncope Expected: 04/08/2024, Expires:04/08/2025[facility]edoComment on above:Expected: 04/08/2024, Expires: 04/08/2025Start: 04-08-2024 End: 43-57-2837Alyttah encounter kkfthoytm09/09/2024 10:30 AM EST Office Visit [facility] [address] [place] [phone] Lisa Ceballos MD [address] [place] [address] [facility]iologyStart: 04-03-2024 End: 61-62-7657Wqafevi encounter /04/2024 1:00 PM EST Appointment [facility] - Neurophysiology [address] [place] [address] [facility]xoKpndoeDetwiler [facility] Start: 04-01-2024 End: 46-78-7325Gcnrfdd B12 & FolateVitamin B12 & Folate Lab Routine Pancytopenia (HCC) Expected: 04/01/2024 (Approximate), Expires: 03/02/2025[facility] HospitalComment on above:Expected: 04/01/2024 (Approximate), Expires: 03/02/2025 Start: 03-26-2024 End: 50-00-3437Asfwrlg encounter /26/2024 9:00 AM EST Office Visit [facility] [address] [place] [phone] Armando Meek, ADRIANNA [address] [place] [address] [facility] Start: 03-02-2024 End: 55-25-6837PWQ panel - Blood by Automated countCBC Lab Routine Pancytopenia (HCC) Expected: 03/02/2024 (Approximate), Expires: 03/02/2025[facility] HospitalComment on above:Expected: 03/02/2024 (Approximate), Expires: 03/02/2025 Start: 17-30-2973OHCPP-19 Vaccine ( season)COVID-19 Vaccine ( season)[facility]Start: 95-04-3156VJMOT-19 Vaccine ()COVID-19 Vaccine ()[facility] Start: 61-82-6921Sednuczmf vaccinationInfluenza VaccineMercy Health Lorain Hospital System Start: 08-23-2426Rijczpyen vaccinationFlu vaccine (#1)[facility] Start: 06-26-2023 End: 38-76-3636Lwxqdcl encounter mnejxjuww34/26/2024 2:30 PM EST Appointment [facility] Physical Therapy [address] [place], [place] [phone] Manjit Waller Physical TherapyStart: 06-23-2023 End: 38-44-0168Qyrmvej encounter ugwbjczjd06/23/2024 1:45 PM EST Appointment [facility] Physical Therapy [address] [place], [place] [phone] Flash Goodwin PTAMTHZ Physical TherapyStart: 06-19-2023 End: 14-52-7914Ogpngei encounter gajwwpxjv89/19/2024 3:15 PM EST Appointment [facility] Physical Therapy [address] [place] [address] Manjit Waller Physical TherapyStart: 06-14-2023 End: 80-54-6193Jyqrkla encounter psrmgaaef73/14/2024 3:30 PM EST Appointment [facility] Physical Therapy [address] [place] [address] Manjit Waller Physical TherapyStart: 06-12-2023 End: 04-72-6074Sbafvkw encounter /12/2024 3:15 PM EST Appointment [facility] Physical Therapy [address] [place] [address] Manjit Waller Physical TherapyStart: 24-21-3498Vltmvkrcq vaccinationFlu vaccine (#1)[facility]art: 44-95-2648JIqZ,Tdap and Td Vaccines (1 - Tdap)DTaP,Tdap and Td Vaccines (1 - Tdap)[facility]art: 79-25-6920Xkxjoxkopkte 0-49 years Vaccine (1 of 2 - PCV) Pneumococcal 0-49 years Vaccine (1 of 2 - PCV)[facility] Hospitalart: 97-64-5220Xnigp BMI Follow Up PlanAdult BMI Follow Up PlanAtrium Health Kings Mountaintart: 37-46-7538Jpzzr BMI ScreeningAdult BMI ScreeningAtrium Health Kings Mountaintart: 43-57-6644Debwqjchd C screeningHepatitis C screenBON [facility] Hospitalart: 46-09-5263QCC screeningHIV screenPoplar Springs Hospitalart: 76-28-0093Eppywzbei vaccine (1 of 2 - 13+ 2-dose series)Varicella vaccine (1 of 2 - 13+ 2-dose series)[facility] Hospitalart: 92-56-7152Ckibqtdeha Screen Depression ScreenLifePoint Health: 49-42-3437Abfqnpzkgq Screening Depression ScreeningAtrium Health Kings Mountaintart: 19-89-8314Mkigotu Screening Tobacco ScreeningAtrium Health Kings Mountaintart: 06-56-3920BIjE,Tdap and Td Vaccines (6 - Tdap)DTaP,Tdap and Td Vaccines (6 - Tdap)[facility] Start: 91-48-9614YFwQ/Tdap/Td vaccine (6 - Tdap)DTaP/Tdap/Td vaccine (6 - Tdap) [facility] Hospitalart: 07-16-7946Sbetyykmdfan 0-64 years Vaccine (1 of 2 - PCV)Pneumococcal 0-64 years Vaccine (1 of 2 - PCV)[facility] Start: 42-85-2647Exwjzlxcg vaccine (1 of 2 - 2-dose childhood series)Varicella vaccine (1 of 2 - 2-dose childhood series)[facility]: 16-58-8668EQTSX-19 Vaccine (#1)COVID-19 Vaccine (#1)[facility] End: 82-06-1805DNW W Auto Differential panel - BloodCBC with Auto Differential Lab Routine Daily for 3 Days starting 03/01/2024 until 03/03/2024, 2 completed [facility] on above:Daily for 3 Days starting 03/01/2024 until 03/03/2024, 2 completed End: 60-47-9824Tmvybgsajq analysis, bone marrowBon Neo PLMComment on above:Once for 1 Occurrences starting 03/01/2024 until 03/01/2024iagnostic Qual BCR-ABL1 Assay w Reflex to p190 or p210 Quant Assaysantitative Assays Diagnostic Qual BCR-ABL1 Assay w Reflex to p190 or p210 Quant Assaysantitative Assays Lab Routine 02/29/2024 5:30 PM EDTB Neo PLM End: 57-25-2909NPSHFB Neurology Routine Seizure ([facility]) Recurrent syncope 1 Occurrences starting 03/26/2024 until 03/26/2025[facility] Work Phone: Comment on above:1 Occurrences starting 03/26/2024 until 03/26/2025 End: 16-65-7064Rasj Cytometry Leukemia/Lymphoma, Bone MarrowFlow Cytometry Leukemia/Lymphoma, Bone Marrow Lab Routine One Time for 1 Occurrences starting 02/29/2024 until 02/29/2024 Neo PLMComment on above:One Time for 1 Occurrences starting 02/29/2024 until 02/29/2024 End: 80-96-2929Iver Cytometry Leukemia/Lymphoma, Bone MarrowBon Neo PLMComment on above:Once for 1 Occurrences starting 03/01/2024 until 03/01/2024 End: 24-22-0030Tjiyiqtl / lymphoma phenotypeBon Neo PLM Work Phone: Comment on above:One Time for 1 Occurrences starting 03/02/2024 until 03/02/2024 End: 31-65-8756Qyvfyos Malignancies Mutation PanelBon Neo PLM Comment on above:One Time for 1 Occurrences starting 03/01/2024 until 03/01/2024 Oxygen therapy [Minimum Data Set]Initiate Oxygen Therapy Protocol Respiratory Care Routine As Needed until discontinued starting 02/27/2024on Neo PLM Work Phone: Comment on above:As Needed until discontinued starting 4Renal function 2000 panel - Serum or PlasmaUF Health Jacksonville Immunizations Immunization DateImmunizationNotesCare BfholccwEoffcmgy59-92-0495NYsN, unspecified formulationKathy Lue [facility]08-28-1998measles, mumps and rubella virus vaccineKathy Lue [facility]09-12-1994DTaP, unspecified formulationKathy Lue [facility]09-12-1994hepatitis B vaccine, pediatric or pediatric/adolescent dosage Shirley Lue [facility]09-12-1994Hib, unspecified formulationKathy Lue [facility]09-12-1994measles, mumps and rubella virus vaccineKathy Lue [facility]11-12-1993Hib, unspecified formulationKathy Lue [facility]09-03-1993hepatitis B vaccine, pediatric or pediatric/adolescent dosage Shirley Lue [facility]09-03-1993Hib, unspecified formulationKathy Lue [facility]07-02-1993hepatitis B vaccine, pediatric or pediatric/adolescent dosage Shirley Lue [facility]07-02-1993Hib, unspecified formulationKathy Lue [facility] Payers DatePayer CategoryPayerPolicy ID2025Medicaid [facility] [place] [facility] [id number] 2024Medicaid [id number] 2.0.1.848346.3.57[id number] 2..1.467055.3.57[id number] 2.0.1.592067.3.57[id number] 2.0.1.314888.3.57[id number] 2.0.1.338621.3.57[id number] 2.0.1.822236.3.57[id number] 2.0.1.818633.3.57[id number] 2.0.1.993431.3.57[id number] 2.16.840.1.381688.3.57[id number] 2.16.840.1.976910.3.57[id number] 2.16.840.1.402717.3.57[id number] 2.16.840.1.596525.3.57[id number] 2.16840.1.666003.3.57[id number] 2.16.840.1.747884.3.57[id number] 2.840.1.547443.3.57[id number] 2.16840.1.147091.3.57[id number] 2.16.840.1.546314.3.57[id number] 2.840.1.350722.3.57[id number] 2.840.1.360312.3.57[id number] 2.840.1.549406.3.579.2.98325-36-7300Pugx-iwg17747108856-36-5762Satnnpr [id number] Social History DateTypeDetailFacilityTobacco smoking statusCleveland Clinictart: 02-26-2024 End: 46-52-9694Vgw Assigned At BirthMalOhio Valley Surgical Hospitaltart: 07-13-2022 End: 72-80-4702Onnqwvz smoking statusLight tobacco smoker (finding)[facility] smoking statusNever [facility] CenterRobbyconnecticut children's [facility] smoking status NHISTobacco smoking consumption unknownProEast [facility] Regional Hospital SystemStart: 1990 Sex Assigned At BirthNot on fileRIVERSIDE HEALTH SYSTEMStart: 02-26-2024 End: 49-93-6051Pxugrsh smoking status NHISSmokes tobacco dailyHospital Corporation Of AmericaStart: 54-56-6408Azwfwhl of tobacco useCigarette SmokerHospital Corporation Of AmericaStart: 02-26-2024 End: 43-12-8595Uikynsy use and exposureFormer smokeless tobacco userHospital Corporation Of AmericaStart: 03-01-2024 End: 89-05-4432Hordrbavf beverage intakeEx-drinker (finding)[facility] AmericaStart: 02-26-2024 End: 70-66-4611Nzyhucq of Social functionHospital Corporation Of AmericaHas the Marketecture, gas, oil, or water company threatened to shut off services in your home in past 12MoNoBon [facility] nprogress(I/We) worried whether (my/our) food would run out before (I/we) got money to buy more.Never trueHospital Corporation Of AmericaStart: 66-57-4447Tzmdvrc smoking status NHISEx-smokerMercy Health Lorain Hospital SystemStart: 36-96-7871Wneghst of tobacco useCurrent smokerMercy Health Lorain Hospital SystemStart: 12-04-2014 End: 60-53-0186HnpJopo (finding)[facility]a [facility] SystemStart: 62-53-8662Hkb Assigned At [facility] Functional Status YgeeVqnrkxydglYtfvueZbwldori00-60-6158Yvtbcmgkbd StatusN/AExec[facility] Qlorolxq47-48-9675Jqrdhpvdea StatusN/AExec[facility] of [facility] Hospitalue01-12-2023Functional StatusN/A [facility] Clinical Notes 07-13-2022 to 09-30-2024 Note Date & UvbzSkauZwysfpgr24-64-0331 History of Present illness Narrative* Caitlyn Nelson RN - 09/30/2024 2:30 PM EDT Instructed on objectives and procedure of a tilt study documented in this encounterBon [facility] NoteGeneral Surgery Office/Clinic Note Chief Complaint consultation for masses HPI Staff 34 year old male presents on consultation from Dr. Garcia for mass to right leg and right arm. Reportsnoting small, reddish colored mass to right upper arm several years ago. Does not believe this has changed in size since first noted. Denies soreness or tenderness. Verbalized he noted small, reddishcolored mass to right lower leg several months ago. Verbalized this has slightly grown in size and o ccasionally is sore. History of Present Illness 34 yo male with h/o migraines, personality d/o, nephrolithiasis, referred for skin lesions on rightarm and right leg; lesions present for several [...] swallowing difficulties, no hearing loss, no ear infection(s),no nose bleeds. Cardiovascular: normal blood pressure, no [...] Hib, unspecified formulation 01/10/1994 (more content not included)...German HospitalComment on above:Result Comment: Electronically Signed By: BREE WILEY, Maureen Jalloh\Date and Time Signed: 09/04/24 15:08 [id number] Miscellaneous Notes* Telephone Encounter - Amber Marcus RN - 07/15/2024 8:15 AM EDT Patient requesting Propranolol [place] script be sent to pharmacy. Medication reviewed by RN and pended to Jassi. documented in this encounterRegency Hospital [facility]03-17-2025 Telephone encounter Note* Telephone Encounter - Amber Marcus RN - 07/15/2024 8:15 AM EDT Patient requesting Propranolol [place] script be sent to pharmacy. Medication reviewed by RN and pended to Jassi. [facility]02-13-2025 Miscellaneous Notes* Telephone Encounter - Janeth Welch - 06/13/2024 9:24 AM EST PA for Sumi pending on CMM with genao # [id number] * Telephone Encounter - Janethjessy Welch - 06/13/2024 9:24 AM EST Approved with [facility] case # [id number] valid till 09/08/24 documented in this encounterRegency Hospital [facility]edo02-13-2025 Telephone encounter Note* Telephone Encounter - Janeth Rebekah - 06/13/2024 9:24 AM EST PA for Sumi pending on CMM with genao # [id number] [facility]02-13-2025 Telephone encounter Note* Telephone Encounter - Janeth Maze - 06/13/2024 9:24 AM EST Approved with [facility] case # [id number] valid till 09/08/24 [facility]02-13-2025 Miscellaneous Notes* Telephone Encounter - Patrick Tee - 06/13/2024 8:37 AM EST 1. IS THIS DUE TO AN ACCIDENT? [...] TO SCHEDULE APPOINTMENT? -Patient documented in this encounterRegency Hospital [facility]edo02-13-2025 Telephone encounter Note* Telephone Encounter - Patrick Tee - 06/13/2024 8:37 AM EST 1. IS THIS DUE TO AN ACCIDENT? [...] 8. WHO CALLED TO SCHEDULE APPOINTMENT? -Patient [facility]02-12-2025 History of Present illness Narrative* Armando Meek PA-C - 06/12/2024 11:00 AM EST [facility] Neurology Office Note 06/11/2024 8:54 PM Patient info: Ethan Donald is a 33 y.o. male Account No.: [id number] Acct: : 1990 PCP: LATRICIA GARCIA MD [...] epileptiform discharges or lateralizing signs were seen. Absenceof epileptiform discharges does not exclude the diagnosis of epilepsy. Multiple episodes of slumping over of head, or sudden falls were recorded, and none of them was associated with any epileptiformactivity on the EEG, or any significant change [...] checking in at a Neurology office in [facility]), he suddenly lost consciousness, so EMSarrived and took him to [facility] for [facility] evaluation. [facility] from 02/26/24-03/02/24. [facility] inpatient Neurology service was consulted. 24 hr. [...] approximately 12 yrs ago (-) hx of [employer] infection: (-) hx of stroke/cerebrovascular malformation: [...] hx of arthritis, fibromyalgia, and multiple personality disorderwho has mixed headache syndrome, including migraine without [...] schedule, staying well hydrated, and working on stressmanagement to help reduce BROOKS/migraine frequency discussed Follow up in the office in 3 months with myself, primarily regarding migraines Electronically Signed by: Armando Meek PA-C 06/12/24 1453 documented in this encounterRegency Hospital [facility]edo01-30-2025 Miscellaneous Notes* Telephone Encounter - Addie Caruso - 05/30/2024 8:53 AM EST Patient called and stated yesterday he was sitting with his mother outside when a construction equipment overhauler pulled up and it had rapidly flashing yellow lights. He looked up at them and when he did he felt himself start to have a seizure. He was able to stop the seizure by looking away. He has never had a seizure due to flashing lights before. He also would like the results from his EEG. He can be reached at [phone] * Telephone Encounter - Amber Marcus RN - 05/30/2024 8:53 AM EST Addressed in JAYS message. documented in this encounterRegency Hospital [facility]edo01-30-2025 Telephone encounter Note* Telephone Encounter - Addie Caruso - 05/30/2024 8:53 AM EST Patient called and stated yesterday he was sitting with his mother outside when a construction equipment overhauler pulled up and it had rapidly flashing yellow lights. He looked up at them and when he did he felt himself start to have a seizure. He was able to stop the seizure by looking away. He has never had a seizure due to flashing lights before. He also would like the results from his EEG. He can be reached at [phone] [facility] nprogress [id number] Telephone encounter Note* Telephone Encounter - Amber Marcus RN - 05/30/2024 8:53 AM EST Addressed in JAYS message. Retidocunited states marine hospitalDesall [id number] History of Present illness Narrative* Lisa Ceballos MD - 05/17/2024 9:00 AM EST Ethan Guadarrama Malyessi Date of visit: 05/17/2024 Date of : 1990 Age: 33 y.o. Patient Active Problem List Diagnosis New onset seizure ([facility]) Pancytopenia ([facility]) Kidney stones Multiple personality disorder ([facility]) Ureteral stone Allergies Allergen Reactions Naproxen Nausea And Vomiting Other Reaction(s): Unknown Current Outpatient Medications Medication Sig Dispense Refill wvxnjod-ivepemrycvvtb-duomkyjk (EXCEDRIN MIGRAINE) 250-250-65 mg per tablet Take [...] 2 tablets (1,000 mg total) by mouth every6 (six) hours as needed for pain. (Patient not taking: Reported on 05/17/2024) pantoprazole (PROTONIX) 20 mg EC tablet Take 2 tablets (40 mg total) by mouth. (Patient not taking:Reported on 05/17/2024) No current facility-administered medications for this visit. Chief Complaint Patient presents with Follow-up EST PT F/U 6 WKS ECHO, HM DONE L/S MBO History of Present Illness 33 year old male with a hx of arthritis, fibromyalgia, and multiple personality disorder , migrainewithout aura, recurrent syncope, pancytopenia, and functional tremor [...] coronary artery disease in his father with [place] in his 50s, no family history of [...] Needs: No Transportation Needs (02/27/2024) Received from [facility] - Transportation Lack of Transportation (Medical): No Lack of Transportation (Non-Medical): No Physical Activity: Not on file Stress: Not on file Social Connections: Not on file Interpersonal Safety: Not on file Housing Instability: Low Risk (02/27/2024) Received from [facility] Housing Stability Vital Sign Unable to [...] Ht 175.3 cm (5' 9.02 ) Wt 103.4kg (228 lb) SpO2 97% BMI 33.65 kg/m Orders Placed or Reconciled This Encounter Medications wtvvmxr-mxfdlxjbrrooe-sfeimqqb (EXCEDRIN MIGRAINE) 250-250-65 mg per tablet Sig: [...] Referring Physician: Latricia Garcia MD [address] [place] [address] documented in this encounterWhite HospitalReal Food Blends [facility] [id number] Miscellaneous Notes* Telephone Encounter - Diana Ledbetter CMA - 05/16/2024 11:06 AM EST Called patient to remind them to bring their most current copy of their medication list with them to their appt. Patient verbalizes understanding. documented in this encounterRegency [facility]-2025 Telephone encounter Note* Telephone Encounter - Diana Ledbetter CMA - 05/16/2024 11:06 AM EST Called patient to remind them to bring their most current copy of their medication list with them to their appt. Patient verbalizes understanding. [facility]12-20-2024 History of Present illness Narrative* Armando Meek PA-C - 04/19/2024 9:00 AM EST [facility] Neurology Office Note 04/18/2024 12:37 PM Patient info: Ethan Donald is a 33 y.o. male Account No.: [id number] Acct: : 1990 PCP: LATRICIA GARCIA MD [...] of the office without assistance. Current preventative RBOOKS/migraine medication: Topiramate Preventative med/s previously tried include: [...] checking in at a Neurology office in [facility]), he suddenly lost consciousness, so EMSarrived and took him to [facility] for further evaluation. [facility] from 02/26/24-03/02/24. [facility] inpatient Neurology service was consulted. 24 hr. 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 Albans HospitalGoNabit [facility] [id number] Instructions* Patient Instructions* Armando Meek PA-C - 04/19/2024 9:00 AM EST Topiramate 50 mg: take 1 tablet nightly for 5 days, then Discontinue documented in this [facility] [id number] History of Present illness Narrative* Ciera Torres MD - 04/12/2024 3:30 PM EST Images from the original note were not included. [facility] 04/12/24 Ethan Donald is a 33 y.o. year old male seen today in the oncology clinic. No chief complaint on file. History of Present Illness: Mr. Donald is a 33 y.o. male who was intially admitted to [facility] on 02/27/2024 for multiple personality disorder, fibromyalgia, tobacco abuse disorder who presented for evaluation of seizure-like activity that was initially seen while he was sleeping. On 02/23/2024 patient did bite his tongue and this was witnessed by his . Patient also reports sweating heavily at that timeas well as high blood pressure. Prior to admission patient had no known previous history of seizures. Imagings were obtained during hospital stay, CT head, MRI brain showed no acute findings. Patientwas initially placed on Depakote but this was discontinued in the setting of pancytopenia and neurology does not recommend continuation of antiepileptic at this time. He was evaluated again yesterdayI emergency room, blood work showed complete normal CBC. Due to pancytopenia the patient also underwent bone marrow biopsy during recent hospital stay at [facility]. He is referred to Hematology for further evaluation. He denies fever, chills, shortness of breath, difficulty breathing chest pain abdominal pain nauseaor vomiting. His weight fluctuates up and down [...] Needs: No Transportation Needs (02/27/2024) Received from [facility] - Transportation Lack of Transportation (Medical): No Lack of Transportation (Non-Medical): No Housing Instability: Low Risk (02/27/2024) Received from [facility] Housing Stability Vital Sign Unable to [...] were clear to auscultation. There was no dullnessto percussion. Cardiac: Regular rate and rhythm, S1 [...] from the original result were not included. [place] [facility] EEG REPORT EEG Service Date: 04/03/24 Date of Report: 04/03/24 History: Ethan Donald is a 33 y.o. male who is undergoing EEGto evaluate for seizure-like events. Centrally active medications: Hydrocodone, prednisone, Nurtec,Topamax. Procedure: This EEG was acquired with electrodes placed according to the Xfxxkocbrffwf02-24 electrode placement system. The EEG was acquired and reviewed using multiple, reformattable montages. A single EKG channel was recorded for cardiac rhythm monitoring. Technical description: Background is composed of 5 V frontal and centrally predominant intermittent beta frequency intermixed with 2 0-30 V posterior alpha frequency. The posterior dominant [...] of intermittent seizures. Tara Bell M.D., Ph.D. Engine Testing Supervisor [place] [facility] Background Recent Labs: Recent Results (from [...] AV Velocity Ratio 0.70 Left Ventricle Mass 152.867035368059720 g Interventricular Septum Diastolic Thickness by 2D [...] this note were generated using voice recognition M*ObsEva dictation software. Although every effort was made to ensure the accuracy of this automated rn military, some errors in rn military may have occurred. CC: Patient Care Team: Latricia Garcia MD as PCP - General PCP:LATRICIA GARCIA Referring MD: Armando Meek PA* documented in this encounterRegency Hospital [facility]edo12-09-2024 History of Present illness Narrative* Lisa Ceballos MD - 04/08/2024 10:30 AM EST Ethan Donald Date of visit: 04/08/2024 Date [...] 2 tablets (1,000 mg total) by mouth every6 (six) hours as needed for pain. 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 - Transportation Lack of Transportation (Medical): No Lack of Transportation (Non-Medical): No Physical Activity: Not on file Stress: Not on file Social Connections: Not on file Interpersonal Safety: Not on file Housing Instability: Low Risk (02/27/2024) Received from [facility] Housing Stability Vital Sign Unable [...] Recurrent syncope - [facility] [place], [place] - Echo complete W/O contrast; Future - Holter monitor 24-48 hour; Future 2. Seizure ([facility]) Episodes described sound like two seizures [...] GARCIA MD Referring Physician: Armando Meek PA-C [address] [place] [address] documented in this encounterSt. Albans HospitalGoNabit [facility] [id number] Miscellaneous Notes* Telephone Encounter - Diana Ledbetter CMA - 04/05/2024 2:35 PM EST Called patient to remind them to bring their most current copy of their medication list with them to their appt. Patient verbalizes understanding. documented in this encounterRegency Hospital [facility]edo12-06-2024 Telephone encounter Note* Telephone Encounter - Diana Ledbetter CMA - 04/05/2024 2:35 PM EST Called patient to remind them to bring their most current copy of their medication list with them to their appt. Patient verbalizes understanding. [facility]12-02-2024 Miscellaneous Notes* Telephone Encounter - Stefani Doshi - 04/01/2024 2:24 PM EST Images from the original note were not included. Patient called to state the referral to the Praveen Torres MD in [place]. Patient states he has called several times and left message with a call back. When looking up the doctors information she appears to be at [facility]. Patient is looking for a doctor in [place]. Please advise Ethan Contact Information [phone] ( * Telephone Encounter - Zulay Tsai RN - 04/01/2024 2:24 PM EST Provider located at both [facility] and [facility] in [place]. * Telephone Encounter - Sis Salazar CMA - 04/01/2024 2:24 PM EST Patient has been notified of below message and voiced understanding. Patient left a message for [facility] location and has not yet heard a response. C[employer] Field Service Engineer informed patient if there is still no response by end of week to give the clinic a call back. documented in this encounterRegency Hospital [facility]edo12-02-2024 Telephone encounter Note* Telephone Encounter - Stefani Doshi - 04/01/2024 2:24 PM EST Images from the original note were not included. Patient called to state the referral to the Praveen Torres MD in [place]. Patient states he has called several times and left message with a call back. When looking up the doctors information she appears to be at [facility]. Patient is looking for a doctor in [place]. Please advise Ethan Contact Information [phone] ( [facility]12-02-2024 Telephone encounter Note* Telephone Encounter - Zulay Tsai RN - 04/01/2024 2:24 PM EST Provider located at both [facility] and [facility] in [place]. [facility]12-02-2024 Telephone encounter Note* Telephone Encounter - Sis Salazar CMA - 04/01/2024 2:24 PM EST Patient has been notified of below message and voiced understanding. Patient left a message for [facility] location and has not yet heard a response. [employer] Field Service Engineer informed patient if there is still no response by end of week to give the clinic a call back. [facility]11-27-2024 Miscellaneous Notes* Telephone Encounter - Oriana Ryan - 03/27/2024 9:17 AM EST Patient stated that Armando Meek submitted a prior authorization on 03/26/2024 for the [facility]. However, Federico stated that it did not go through correctly. Please advise Medication Refill request: (IF ARMANDO MEEK WANTS HIM TO CONTINUE THIS MEDICATION, THEN HE WILL NEED A REFILL) Medication Name and Strength:HYDROcodone-acetaminophen (NORCO) 5-325 mg per tablet Current dose & Frequency: TAKE 1 TABLET BY MOUTH EVERY 6 HOURS NEEDED FOR PAIN (TAKE lowest dose possible to manage pain max DAILY amount FOUR TABLETS) actually taking - not what is listed on the prescription label 30 day or 90 day supply preferred: unknown Pharmacy Name: [facility] If already on preferred pharmacy list - name only If new pharmacy - specify address & phone number Request was made by: * Telephone Encounter - Amber Marcus RN - 03/27/2024 9:17 AM EST PA is needed for Nurtec. Medication listed is incorrect. RN has submitted a PA on [facility]. [place]ao: [id number] * Telephone Encounter - Mecca eBnoit - 03/27/2024 9:17 AM EST Patient called stating that he has been experiencing a migraine for about a month since his seizure. Patient is requesting another medication other than Nurtec due to pharmacy not prescribing medication due to a PA. Patient states that if he does not get a medication prescribed by this afternoon that he will be going to [facility] for a migraine cocktail. Please Advise. Pharmacy: [id number] - [place], [place] - Best Contact: * Telephone Encounter - Sis Salazar CMA - 03/27/2024 9:17 AM EST Patient was informed a PA was submitted, however, the clinic is awaiting response from insurance. The patient is wanting to know if there is any other medication he can take in the meantime until a response is received for the Nurtec. * Telephone Encounter - Armando Meek PA-C - 03/27/2024 9:17 AM EST Continue with the prescribed Topiramate and I will send in a course of Prednisone in the meantime while the PA for Nurtec ODT is being completed. - [facility] * Telephone Encounter - Amber Marcus RN - 03/27/2024 9:17 AM EST Nurtec was denied. RN will submit an appeal as denial states patient must try 2 preferred medications. RN listed sumatriptan and Rizatriptan and it was overlooked. Denial also states that the max amount is 8 tabs/30 days, which this RN also listed in the PA request. Patient was updated on status of PA and voiced understanding. Patient wanted to update Jassi that hehad 3 seizures over the weekend and was taken to [facility]. He was provided with a medication that aborted his migraine. Patient is unsure the name of if but will look at his records and notify clinic. Patient stated he has a slight headache still but it is much better than previously. He would still like to start Prednisone but will need script sent to [facility] in [place] instead. * Telephone Encounter - Armando Meek PA-C - 03/27/2024 9:17 AM EST Appeal Nurtec as stated; thank you. Continue with Topiramate. Will resend Prednisone to desired Pharmacy location. - [facility] documented in this encounterRegency Hospital [facility]edo11-27-2024 Telephone encounter Note* Telephone Encounter - Oriana Ryan - 03/27/2024 9:17 AM EST Patient stated that Armando Meek submitted a prior authorization on 03/26/2024 for the Nurtec. However, Federico stated that it did not go through correctly. Please advise Medication Refill request: (IF ARMANDO MEEK WANTS HIM TO CONTINUE THIS MEDICATION, THEN HE WILL NEED A REFILL) Medication Name and Strength:HYDROcodone-acetaminophen (NORCO) 5-325 mg per tablet Current dose & Frequency: TAKE 1 TABLET BY MOUTH EVERY 6 HOURS NEEDED FOR PAIN (TAKE lowest dose possible to manage pain max DAILY amount FOUR TABLETS) actually taking - not what is listed on the prescription label 30 day or 90 day supply preferred: unknown Pharmacy Name: [facility] If already on preferred pharmacy list - name only If new pharmacy - specify address & phone number Request was made by: [employer]11-27-2024 Telephone encounter Note* Telephone Encounter - Amber Marcus RN - 03/27/2024 9:17 AM EST PA is needed for Nurtec. Medication listed is incorrect. RN has submitted a PA on [facility]. [place]ao: [id number] [employer]11-27-2024 Telephone encounter Note* Telephone Encounter - Mecca Benoit - 03/27/2024 9:17 AM EST Patient called stating that he has been experiencing a migraine for about a month since his seizure. Patient is requesting another medication other than Nurtec due to pharmacy not prescribing medication due to a PA. Patient states that if he does not get a medication prescribed by this afternoon that he will be going to [facility] for a migraine cocktail. Please Advise. Pharmacy: [id number] - [place], [place] - Best Contact: [employer]11-27-2024 Telephone encounter Note* Telephone Encounter - Sis Salazar CMA - 03/27/2024 9:17 AM EST Patient was informed a PA was submitted, however, the clinic is awaiting response from insurance. The patient is wanting to know if there is any other medication he can take in the meantime until a response is received for the Nurtec. [employer]11-27-2024 Telephone encounter Note* Telephone Encounter - Armando Meek PA-C - 03/27/2024 9:17 AM EST Continue with the prescribed Topiramate and I will send in a course of Prednisone in the meantime while the PA for [facility] ODT is being completed. - [facility] [employer]11-27-2024 Telephone encounter Note* Telephone Encounter - Amber Marcus RN - 03/27/2024 9:17 AM EST [facility] was denied. RN will submit an appeal as denial states patient must try 2 preferred medications. RN listed sumatriptan and Rizatriptan and it was overlooked. Denial also states that the max amount is 8 tabs/30 days, which this RN also listed in the PA request. Patient was updated on status of PA and voiced understanding. Patient wanted to update Jassi that hehad 3 seizures over the weekend and was taken to [facility]. He was provided with a medication that aborted his migraine. Patient is unsure the name of but will look at his records and notify clinic. Patient stated he has a slight headache still but it is much better than previously. He would still like to start Prednisone but will need script sent to [facility] in [place] instead. [employer] [id number] Telephone encounter Note* Telephone Encounter - Armando Meek PA-C - 03/27/2024 9:17 AM EST Appeal [facility] as stated; thank you. Continue with Topiramate. Will resend Prednisone to desired Pharmacy location. - [facility] [employer]11-26-2024 History of Present illness Narrative* Armando Meek PA-C - 03/26/2024 9:00 AM EST [facility] Neurology Office Note 03/25/2024 3:01 PM Patient info: Ethan Donald is a 33 y.o. male Account No.: [id number] Acct: : 1990 PCP: LATRICIA GARCIA MD [...] checking in at a Neurology office in [facility]), he suddenly lost consciousness, so EMSarrived and took him to [facility] for further evaluation. [facility] from 02/26/24-03/02/24. [facility] inpatient Neurology service was consulted. 24 hr. 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 IS THIS DUE TO AN ACCIDENT? -NO 2. IS THIS WORKER'S COMP? PLEASE VERIFY IF THIS IS WORKERS COMP AND DOCUMENT (We do not accept any new workers comp cases) - NO 3. WHAT INSURANCE? - MEDICAID WILL BE GETTING [facility] 4. HAVE YOU EVER BEEN SEEN BY A NEUROLOGIST BEFORE? IF YES, WHO AND WHEN? IS THIS A SECOND OPINION? - NO 5. ANY CHANCE OF NOW OR BEFORE YOUR APPOINTMENT? N/A - 6. OFFERED JOSE FOR SOONER APPOINTMENT? -YES 7. PATIENT IS SCHEDULED ON/WITH: - RAMANDO MEEK 8. WHO CALLED TO SCHEDULE APPOINTMENT? PATIENT - documented in this encounterRegency Hospital [facility]edo11-25-2024 Telephone encounter Note* Telephone Encounter - Breanna Philip - 03/25/2024 11:03 AM EST Please ask the following questions to the new patient that you are schedulin. IS THIS DUE TO AN ACCIDENT? -NO 2. IS THIS WORKER'S COMP? PLEASE VERIFY IF THIS IS WORKERS COMP AND DOCUMENT (We do not accept any new workers comp cases) - NO 3. WHAT INSURANCE? - MEDICAID WILL BE GETTING [facility] 4. HAVE YOU EVER BEEN SEEN BY A NEUROLOGIST BEFORE? IF YES, WHO AND WHEN? IS THIS A SECOND OPINION? - NO 5. ANY CHANCE OF NOW OR BEFORE YOUR APPOINTMENT? N/A - 6. OFFERED JOSE FOR SOONER APPOINTMENT? -YES 7. PATIENT IS SCHEDULED ON/WITH: - ARMANDO MEEK 8. WHO CALLED TO SCHEDULE APPOINTMENT? [facility] [id number] History of Present illness Narrative* Daphne Alonzo RN - 03/02/2024 2:01 PM EDT Discharge teaching and instructions for diagnosis/procedure of possible new onset seizure completed, pantocytopenia with patient using teachback method. AVS reviewed. Pt's prescriptions that were brought from home were given to patient. Patient voiced understanding regarding prescriptions, follow up appointments, and care of self at home. Discharged in a wheelchair to home with support per family. Pt supplied with walker from [facility]. * Diana Reddy RN - 03/01/2024 9:16 AM EDT TRANSFER - OUT REPORT: Verbal report given to Page CAMARILLO(name) on Ethan Donald being transferred to (unit) for routine progression of patient care Report consisted of patient's Situation, Background, Assessment and Recommendations(SBAR). Information from the following report(s) Nurse Handoff Report, Surgery Report, and MAR was reviewedwith the receiving nurse. Opportunity for questions and clarification was provided. Patient transported with: Monitor * Jenny Alvarez APRN - CNP - 03/01/2024 8:24 AM EDT Received notification from nursing staff that patient's father has delta granule pool deficiency. Dr. Silva notified. * Maureen Hampton, - 03/01/2024 8:21 AM EDT Images from the original note were not included. Hospitalist Progress Note Internal Medicine Resident Patient: Ethan Donald 33 y.o. male Unit/Bed: -03003- Admit Date: 02/27/2024 ASSESSMENT AND PLAN Active [...] TBD Disposition: TBD Code status: Full Code Chief Complaint: - Seizure like activity Subjective [...] fibromyalgia, tobacco use disorder who presented to [facility] on 02/27/2024 for evaluation of loss of consciousness. Patient was directly admitted from outside facility. Patient was noted to have seizures while sleeping on 02/23/2024which did note that he bit his tongue and was witnessed by his . Patient went to his PCP and ofnote he was diagnosed with sinusitis and was [...] for antiepileptic medication at time of discharge. Patientwas initially started Depakote but was held in [...] ondansetron OR ondansetron, polyethylene glycol, acetaminophen OR a cetaminophen, LORazepam Exam: BP 106/72 Pulse 83 Temp 98.2 F (36.8 C) (Oral) Resp 16 Ht 1.753 m (5' 9 ) Wt 97.8 kg (215lb 8 oz) SpO2 98% BMI 31.82 kg/m [...] care of this patient. I have seen thepatient independently and agree with the assessment and plan. Date of Service - 03/01/24 * Diana Reddy RN - 03/01/2024 8:20 AM EDT [address] scanning for [...] [place]. 0904 Samples collected and given to firebrick layer for further review. 0906 Procedure completed; patient tolerated well. Post scan obtained. 0908 Bacitracin oint, band aid to site; no bleeding noted. 0910 Patient on bed; comfort ensured. 0917 patient taken to 4A via bed/transporter with family at bedside. Pt alert and oriented x3; follows commands. Skin pink, warm, and dry. Respirations easy, regular, and nonlabored. * Chapis Rizvi MD - 02/29/2024 2:44 PM EDT Images from the original note were not included. Hospitalist Progress Note Internal Medicine Resident Patient: Ethan L Scherf 33 y.o. male Unit/Bed: 4A-03/003-A Admit Date: [...] 02/28 Disposition: home Code status: Full Code Chief Complaint: seizure HPI / Hospital Course: 33 y.o. male with PMHx of Multiple personality disorder, Fibromyalgia who presented to [facility] on 02/26 with chief complaint of loss of consciousness. [facility] Reported on 02/22 having seizure while at the sleep and caused him to bite his tongue, witnessed by his . Wentto his PCP for the next day and was diagnosed with sinusitis and given a cephalexin and Zofran. Reports intermittent right-sided temporal pain, visual changes and black spots. Also reports sweating and high blood pressure! Denies prior history of seizure or migraines with denies alcohol use. Deniesdizziness, or lightheadedness. Denies fever or chills. CTH/CTA [...] bedside this morning. No acute event overnight. Hemodynamicallystable. Complains headache. Denies CP, SOB, fever, lightheadedness,nausea/vomiting, abdominal pain,or urinary problem. 02/28: Pt was seen and evaluated at bedside this morning. No acute event overnight. Hemodynamicallystable. Complains right sided intermittent BROOKS. Denies CP, [...] ondansetron OR ondansetron, polyethylene glycol, acetaminophen OR a cetaminophen, LORazepam Exam: BP 111/71 Pulse 72 Temp [...] care of this patient. I have seen thepatient independently and agree with the assessment and plan. Hematology consulted given pancytopenia. Depakote held at this time after discussion with neurology. Date of Service - 02/29/2024 * Yasmin Ambrosio, RAIL CAR OPERATOR - SUPERVISOR PRESSING DEPARTMENT - 02/29/2024 2:41 PM EDT Neurology Progress Note Date:02/29/2024 Room:[address] [place] [address] Patient Name:Ethan Donald Date of :1990 Age:33 y.o. CC: No chief complaint on file. Subjective Ethan Donald is a 33 y.o. male with a history of Multiple Personality Disorder, Fibromyalgia and Marijuana and Tobacco dependence who presented to [facility] after passing out at his psychiatristoffice; transferred to [facility] on 02/26/2024 for neurology evaluation. Patient [...] or vomiting. is at bedside who confirms thathe had seizure like activity in the night [...] ondansetron OR ondansetron, polyethylene glycol, acetaminophen OR a cetaminophen, LORazepam Past History Past Medical History: has a past medical history of Arthritis, Fibromyalgia, Multiple personalities(HCC), and Gridley-Schlatter's disease. Social History: reports that he has [...] time. Motor: Motor strength is normal. Coordination: Fpoudt-Zzim-Peazfc Test and Heel to Solano Test normal. [...] internal carotid arteries measured using NASCET criteria. Automatedexposure control, iterative reconstruction, and/or weight based adjustment [...] or middle cerebral arteries. No aneurysm. POSTERIOR CIRCULATION:No significant stenosis of the vertebral, basilar, or [...] internal carotid arteries measured using NASCET criteria. Automatedexposure control, iterative reconstruction, and/or weight based adjustment [...] or middle cerebral arteries. No aneurysm. 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 [...] in agreement with the assessment and plan. * Chapis Rizvi MD - 02/28/2024 5:13 PM EDT Images from the original note were not included. Hospitalist Progress Note Internal Medicine Resident Patient: Ethan Donald 33 y.o. male Unit/Bed: [address] [place] [address] Admit Date: 02/27/2024 ASSESSMENT AND PLAN Active [...] 02/28 Disposition: home Code status: Full Code Chief Complaint: seizure HPI / Hospital Course: 33 y.o. male with PMHx of Multiple personality disorder, Fibromyalgia who presented to [facility] on 02/26 with chief complaint of loss of consciousness. Directly admitted from [facility]. Reported on 02/22 having seizure while at the sleep and caused him to bite his tongue, witnessed by his . Wentto his PCP for the next day and was diagnosed with sinusitis and given a cephalexin and Zofran. Reports intermittent right-sided temporal pain, visual changes and black spots. Also reports sweating and high blood pressure! Denies prior history of seizure or migraines with denies alcohol use. Deniesdizziness, or lightheadedness. Denies fever or chills. CTH/CTA [...] m (5' 9 ) Wt 97.2 kg (214lb 4.6 oz) SpO2 98% BMI 31.64 kg/m [...] care of this patient. I have seen thepatient independently and agree with the assessment and [...] IP setting Date of Service - 02/28/2024 * Yasmin Ambrosio, RAIL CAR OPERATOR - SUPERVISOR PRESSING DEPARTMENT - 02/28/2024 3:53 PM EDT Neurology Progress Note Date:02/28/2024 Room:[address] [place] [address] Patient Name:Ethan Donald Date of :1990 Age:33 y.o. CC: No chief complaint on file. Subjective Ethan Donald is a 33 y.o. male with a history of Multiple Personality Disorder, Fibromyalgia and Marijuana and Tobacco dependence who presented to [facility] after passing out at his psychiatristoffice; transferred to [facility] on 02/26/2024 for neurology evaluation. Patient [...] or vomiting. is at bedside who confirms thathe had seizure like activity in the night [...] past medical history of Arthritis, Fibromyalgia, Multiple personalities(HCC), and Darell-Schlatter's disease. Social History: reports that he has been smoking cigarettes. He has quit using smokeless tobacco. He reports that he does not currently use alcohol. Family History: No family history on file. Physical Examination Vitals: BP 104/68 Pulse 83 Temp 98.1 F (36.7 C) (Oral) Resp 18 Ht 1.753 m (5' 9 ) Wt 97.2 kg (214lb 4.6 oz) SpO2 99% BMI 31.64 kg/m [...] time. Motor: Motor strength is normal. Coordination: Mliuia-Xdwg-Spguay Test and Heel to Solano Test normal. [...] 02/28/24 05 INR 1.13 APTT: Recent Labs 02/28/24521 APTT [...] internal carotid arteries measured using NASCET criteria. Automatedexposure control, iterative reconstruction, and/or weight based adjustment [...] or middle cerebral arteries. No aneurysm. POSTERIOR CIRCULATION:No significant stenosis of the vertebral, basilar, or [...] internal carotid arteries measured using NASCET criteria. Automatedexposure control, iterative reconstruction, and/or weight based adjustment [...] or middle cerebral arteries. No aneurysm. 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 Follow up with Dr. Davis in 1-2 months. 2. Complex migraine Awaiting MRI brain Depakote should help with headache Flexeril x1 per primary Tylenol and Toradol PRN Patient reports that he is hydrating well orally This was discussed with Dr. Veliz and he is in agreement with the assessment and plan. * Devan Kellogg - 02/28/2024 3:18 PM EDT Spiritual Health History and Assessment/Progress Note [facility] (P) Advance Care Planning, , , Name: Ethan Donald Age: 33 y.o. Sex: male Language: Vietnamese Caodaism: None New onset seizure (HCC) Date: 02/28/2024 Total Time Calculated: (P) 35 min Spiritual Assessment continued in [facility] 4A Referral/Consult From: (P) Nurse [...] Care: Spiritual Care available upon further referral * Misti Tineo - 02/27/2024 3:31 PM EDT Patient is enrolled in [facility], please send discharge medication to [facility]. Thank you! Misti Tineo [facility] - Prescription Assistance ([phone]) 02/27/2024,3:31 PM * Dante Kerr - 02/27/2024 2:54 PM EDT Assessment: Ethan is a 33 year old male resting in his bed alone, ca.lm. tired and awake. This visit is in response to a Spiritual Consult to discuss ACP document.Please see ACP note for detail * Bahman Robledo - 02/27/2024 9:47 AM EDT [facility] Neurodiagnostic Instrumentation Engineer Worksheet EEG Date: 02/27/2024 Name: Ethan Donald : 1990 Age: 33 y.o. Sex: male CSN: [id number] [facility] Ordering Provider: Brian Gunter EEG Number: [id number] [...] Deprived: Yes Seizures Observed: No Mentality: alert Psychotherapist Counselor: Bahman Robledo 02/27/2024 * Mattie Torrez RN - 02/26/2024 6:23 PM EDT [facility], Dr Reyes. 33 yo new onset seizure, headache and syncopal episode. Mon. he had a seizure in his sleep, bit his tongue. Followed up with PCP and [facility]. At PCP appt today hada pain in head, passed out, came to ED. CT head without contrast nothing acute. No CT with contrastdone because wasn't sure if he had contrast at [facility]. No ability to do MRI after 4PM. Questioning temporal arteritis , 60 mg solumedrol given, also given zofran . WBC 4.1, sed rate 17, CRP 81.9. Vials afebrile, 138/84, 92, 18, 97% on room air. documented in this encounterBon [facility] Discharge instructions* Discharge Instructions* Maureen Hampton DO - 03/02/2024 11:54 AM EDT Follow up with your family doctor in the next week. Continue to wear mask for a precaution when around family and friends. Follow up with Neurology, continue seizure precautions. Do not drive motor vehicles until you follow up and see neurology. 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 -met [employer] Goals Time Frame for [employer] Goals : 6 weeks [employer] Goal 1: Patient to be independent and compliant with HEP. -met Intermediate Goal 2: Patient to have improved R knee AROM 0-120* with no increase in pain for improvedmobility. -met (05/31/23 R knee AROM 0-130*) [employer] Goal 3: Patient to have improved R [...] Manjit Thorpe Date: 06/14/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 -met [employer] Goals Time Frame for Intermediate Goals : 6 weeks [employer] Goal 1: Patient to be independent and compliant with HEP. -met [employer] Goal 2: Patient to have improved R knee AROM 0-120* with no increase in pain for improvedmobility. -met (05/31/23 R knee AROM 0-130*) [employer] Goal 3: Patient to have improved R LE strength >/=4/5 grossly all major joints and planes for improved knee stability with gait. [employer] Goal 4: Pt to report ability to walk community distances with no AD and no gait deviations or increase in pain to return to PLOF. -progressing Minutes Tracking: Time In: 1515 Time Out: 1558 Minutes: 43 Timed Code Treatment Minutes: 41 Minutes Manjit MorrisonnaifbasilCAREN Date: 06/12/2023 documented in this encounterBON FADI [facility] [id number] Hospital Discharge instructions Patient Education 07/21/2022 09:25:12 [...] about 300 mg of calcium at each meal.Foods that contain 200 500 mg of calcium [...] Talk to your dietitian about how much calciumis recommended for you. Shopping Buy plenty of [...] the table and allow each person to addhis or her own salt to taste. Use [...] fish, if told by your dietitian. To dothis: ?Limit the number of times you have [...] include: ?Spinach. ?Rhubarb. ?Beets. ?Potato chips and scottish fries. ?Nuts. If you regularly take a diuretic medicine, make sure to eat at least 1 2 fruits or vegetables high in potassium each day. These include: ?Avocado. ?Banana. ?[place], prune, carrot, or tomato juice. ?Baked potato. [...] fish. Salted or cured meats. Deli meats. Hotdogs. Sausages. Dairy Cheese. Beverages Regular soft drinks. Regular vegetable juice. Seasonings and other foods Seasoning blends with salt. Salad dressings. Canned soups. Soy sauce. Ketchup. Barbecue sauce. Canned pasta sauce. Casseroles. Pizza. Lasagna. Frozen meals. Potato chips. Liberian fries. Summary You can reduce your risk of kidney stones by making changes to your diet. The most important thing you can do is drink enough fluid. You should drink enough fluid to keep your urine clear or pale yellow. Ask your health care provider or dietitian how much protein from animal sources you should eat eachday, and also how much salt and calcium you should have each day. This information is not intended to replace advice given to you by your health care provider. Make sure you discuss any questions you have with your health care provider. Document Released: 08/12/2011 Document Revised: 08/07/2019 Document Reviewed: 03/28/2017 [employer] Patient Education 2020 [employer] Follow Up Care 07/20/2022 16:11:07 With:Handy WILEY, DANA Llamas, URO Address: When: Unknown [facility] Desiree 03-15-2023 Hospital Discharge instructions Patient Education 07/13/2022 10:16:52 [...] about 300 mg of calcium at each meal.Foods that contain 200 500 mg of calcium [...] Talk to your dietitian about how much calciumis recommended for you. Shopping Buy plenty of [...] the table and allow each person to addhis or her own salt to taste. Use [...] fish, if told by your dietitian. To dothis: ?Limit the number of times you have [...] include: ?Spinach. ?Rhubarb. ?Beets. ?Potato chips and scottish fries. ?Nuts. If you regularly take a diuretic medicine, make sure to eat at least 1 2 fruits or vegetables high in potassium each day. These include: ?Avocado. ?Banana. ?D[place]ouz[place], prune, carrot, or tomato juice. ?Baked potato. [...] fish. Salted or cured meats. Deli meats. Hotdogs. Sausages. Dairy Cheese. Beverages Regular soft drinks. Regular vegetable juice. Seasonings and other foods Seasoning blends with salt. Salad dressings. Canned soups. Soy sauce. Ketchup. Barbecue sauce. Canned pasta sauce. Casseroles. Pizza. Lasagna. Frozen meals. Potato chips. Liberian fries. Summary You can reduce your risk of kidney stones by making changes to your diet. The most important thing you can do is drink enough fluid. You should drink enough fluid to keep your urine clear or pale yellow. Ask your health care provider or dietitian how much protein from animal sources you should eat eachday, and also how much salt and calcium you should have each day. This information is not intended to replace advice given to you by your health care provider. Make sure you discuss any questions you have with your health care provider. Document Released: 08/12/2011 Document Revised: 08/07/2019 Document Reviewed: 03/28/2017 [employer] Patient Education 2020 [employer]. Follow Up Care 05/23/2022 10:22:28 With:Handy WILEY, Shirley Menchaca, UR, URO Address: When: Unknown [facility] evaluation + Plan note Future Appointments Appointment Date:07/13/2022 09:00:00 AM Scheduled Provider:Shirley Murrell MD Location:[facility] Appointment Type:URO [facility] Diagnosis New onset seizure (HCC)- Primary Other convulsions Pancytopenia (HCC) Other pancytopenia Hip pain, unspecified laterality Pancytopenia (HCC) Other pancytopenia [facility] Diagnosis Recurrent syncope- Primary [facility] Diagnosis Migraine without aura and without status migrainosus, not intractable- Primary Seizure-like activity (CMS-HCC) Functional tremor Seizure-like activity (CMS-HCC) documented [facility]* Diagnosis Psychogenic nonepileptic seizure- Primary Seizure-like activity (CMS-HCC) 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 Diagnosis Seizure (CMS-HCC)- Primary Other convulsions Migraine without aura and without status migrainosus, not intractable Status migrainosus Variants of migraine, not elsewhere classified, without mention of intractable migraine without mention of status migrainosus Recurrent syncope Pancytopenia (CMS-HCC) Functional tremor [facility]* Diagnosis Status migrainosus- Primary Variants of migraine, not elsewhere classified, without mention of intractable migraine without mention of status migrainosus documented [facility]* Diagnosis Recurrent syncope- Primary Seizure (CMS-HCC) Other convulsions [facility]* Diagnosis Pancytopenia (CMS-HCC) [facility]* Diagnosis Migraine without aura and without status migrainosus, not intractable [facility]* Diagnosis Syncope, unspecified syncope type [facility]* Diagnosis Onset Date Resolution Status Admit Date Elevated serum creatinine acuteJuly 2024 10:18amHypokalemiaacuteJuly 2024 10:18amSeizuresacute Erin 2024 10:18am [facility] Work Phone: Hospital course Narrative No data available for this section [facility] No data available for this section [facility] HospitalInstructionsNot on filedocumented in this encounter [facility] [...] note No data available for this section [facility] HospitalReason for referral (narrative)No reason for referral information availableTrihealth Mccull[facility] Work Phone: Reason for visit Narrative* Consultation (Routine) - Pending ReviewSpecialtyDiagnoses / ProceduresReferred By ContactReferred To ContactHematology Diagnoses Pancytopenia (CMS-HCC) Armando Meek, ADRIANNA [address] [place] [address] Phone: tel: fax: Ciera Torres MD [address] [place] [address] Phone: tel: fax: Referral IDStatusReasonStart DateExpiration DateVisits RequestedVisits [id number] Review Specialty Services Required [facility] SystemReason for visit Narrative* Cardiology (Routine) - Open SpecialtyDiagnoses / ProceduresReferred By ContactReferred To Contact Cardiology Diagnoses Syncope, unspecified syncope type Procedures Tilt table Latricia Garcia MD [address] [place] [address] Phone: tel:[phone] fax: Referral IDStatusReasonStart DateExpiration DateVisits RequestedVisits [id number]// [facility] Summary Purpose Family History Relationship Condition Age at Onset Recorded Date/T ren mother Malignant neoplasm Unknown fatherHeart diseaseUnknown Advance Directives TypeDate RecordedPatient RepresentativeExplanationACP-Advance Directive 02/29/2024 2:09 PMDate ActivatedDate KipfbavywxtQcomsdfj56/29/2024 12:32 AMName RelationshipHealthcare Agent RelationshipCommunicationKarjustus Pegueroirlfriend Primary Decision Maker* Hiren WiliParJosiahecondary Decision Maker* TypeDate RecordedPatient RepresentativeExplanationACP-Advance Rjibuqsju99/5/2024 10:18 AMACP-Advance Nwhvsxxsc39/31/2024 2:09 PMDate ActivatedDate Inactivated Zrxiobzt05/29/2024 12:32 AM03/02/2024 5:23 PMNameRelationshipHealthcare Agent RelationshipCommunicationKara MarielenairlfriendPrimary Decision Maker* Hiren WiliParJosiahecondary Decision Maker* Advance Directive Response Recorded Date/ Time Advance [...] team informatio n (unrecognized section and content) Team MemberRelationshipSpecialtyStart DateEnd Date Latricia Garcia MD [address] [id number] PCP - GeneralFamily Koofnybp38/19/23Team MemberRelationshipSpecialtyStart Date End Date Latricia Garcia MD [address] [place] [address] PCP - GeneralFamily Vrzobugg09/19/23Team MemberRelationshipSpecialtyStart Date End Date Latricia Garcia MD [address] [place] [address] PCP - GeneralFamily Egctfzgg55/19/23Team MemberRelationshipSpecialtyStart Date End Date Latricia Garcia MD PCP - General5/18/18Team MemberRelationshipSpecialtyStart DateEnd Date Latricia Garcia MD PCP - General5/18/18Team MemberRelationshipSpecialtyStart DateEnd Date Latricia Garcia MD PCP - General5/18/18Team MemberRelationshipSpecialtyStart DateEnd Date Latricia Garcia MD PCP - General5/18/18Team MemberRelationshipSpecialtyStart DateEnd Date Latricia Garcia MD PCP - General5/18/18Team MemberRelationshipSpecialtyStart DateEnd Date Latricia Garcia MD PCP - General5/18/18Team MemberRelationshipSpecialtyStart DateEnd Date Latricia Garcia MD PCP - General5/18/18Team MemberRelationshipSpecialtyStart DateEnd Date Larticia Garcia MD PCP - General5/18/18Team MemberRelationshipSpecialtyStart DateEnd Date Latricia Garcia MD PCP - General5/1818Team MemberRelationshipSpecialtyStart DateEnd Date Latricia Garcia MD PCP - General5/18Team MemberRelationshipSpecialtyStart DateEnd Date Latricia Garcia MD PCP - General5/1818Team MemberRelationshipSpecialtyStart DateEnd Date Latricia Garcia MD PCP - General/18Team MemberRelationshipSpecialtyStart DateEnd Date Latricia Garcia MD [address] [place] [address] [facility] Team Status: Active Member Role Status Justice Garcia MD Primary Care Provider Active Team Status: Inactive Member Role Status Justice Garcia MD Primary Care Provider Active Start: November 12, 2024 End: November 12Christopher Min ProviderActiveStart: November 12, 2024 End: November 12, 2024 (unrecognized sect ion and content) No Status Records FoundNo Status Records FoundNo Status Records FoundNo Status Records FoundNo Status Records FoundNo Status Records FoundNo Status Records Found INFORMATION SOURCE (unrecogn ized section and content) DATE CREATED AUTHOR 09/13/2022 [facility] DATE CREATED AUTHOR AUTHOR'S ORGANIZ ATION 03/23/2024 [facility] DATE CREATED AUTHOR AUTHOR'S ORGANIZ ATION 05/17/2024 [facility] DATE CREATED AUTHOR AUTHOR'S ORGANIZ ATION 05/20/2024 [facility] DATE CREATED AUTHOR AUTHOR'S ORGANIZ ATION 06/14/2024 [facility] DATE CREATED AUTHOR AUTHOR'S ORGANIZ ATION 09/05/2024 [facility] DATE CREATED AUTHOR AUTHOR'S ORGANIZ ATION 10/04/2024 [facility] Reason for Visit (unrecogniz ed section and content) SpecialtyDiagnoses / ProceduresReferred By ContactReferred To Contact Diagnoses New onset seizure (HCC) new onset seizure [facility] [address] [place] [address] [facility] [address] [place] [address] Referral IDStatusReasonStart DateExpiration DateVisits RequestedVisits [id number] PT F/U 6 WKS ECHO, HM DONE L/S MBOReasonOnset HdbqJqqhozyxNafbdpxq65/30/2025ReasonCommentsFollow-upPatient is here today for follow up.ReasonCommentsFollow-upPatient is here today for follow up on recent passing out episodes. Patient states they do not feelwell right now and passed out this morning.ReasonOnset DateCommentsNew Gyvslkd8806/13/2024 ReasonOnset HddgGugfuskpAMBJUNHM87/25/2024easonCommentsSeizuresPatient is here today as a new patient for dx of Seizures. Patient states that he had a seizure about a month ago and has been having episodes of passing out ever since. SpecialtyDiagnoses / ProceduresReferred By ContactReferred To ContactNeurology Diagnoses Seizure ([facility]) Latricia Garcia MD [address] [place] [address] Phone: tel:[phone] fax: [facility] [address] [place] [address] Phone: tel: fax: Referral IDStatusReasonStart DateExpiration DateVisits RequestedVisits [id number] Review Specialty Services Required 1ReasonOnset DateCommentsprior /27/2024 ReasonOnset DateCommentsinformation wrong on mljryxoj43/02/2024ReasonCommentsNew PatientNP SYNCOPE EKG PIEDAD, WAS IN ER , ALSO IP [facility] SCHED W/ PT SpecialtyDiagnoses / ProceduresReferred By ContactReferred To ContactCardiology Diagnoses Recurrent syncope Armando Meek PA-C [address] [place] [address] Phone: tel: fax: [facility] [address] [place] [address] Phone: tel: fax: Referral IDStatusReasonStart DateExpiration DateVisits RequestedVisits [id number] Review Specialty Services Required 1ReasonOnset DateCommentsMed Bvjihk2807/15/2024 Ordered Prescriptions (unrec ognized section and content) PrescriptionSigDispensedRefillsStart DateEnd Date nicotine (NICODERM CQ) 14 MG/24HR Place 1 patch onto the skin daily 30 patch polyethylene glycol (GLYCOLAX) 17 g packet Take 1 packet by mouth daily as needed for Constipation 527 g ferrous sulfate (IRON 325) 325 (65 Fe) MG tablet Take 1 tablet by mouth daily (with breakfast) 30 tablet HYDROcodone-acetaminophen (NORCO) 5-325 MG per tablet Indications:Hip pain, unspecified lateralityTake 1 tablet by mouth every 6 hours as needed for Pain for up to 3 days. Intended supply: 3 days. Take lowest dose possible to manage pain Max Daily Amount: 4 tablets 10 tablet ketorolac (TORADOL) 10 MG tablet Take 1 tablet by mouth every 6 hours as needed for Pain 10 tablet 03/02/2024 Scheduled Active and Recently Administ ered Medications (unrecognized section and content) Medication Order divalproex (DEPAKOTE) DR tablet 500 mg 500 mg, Oral, EVERY 12 HOURS SCHEDULED (2 times per day), First dose on Mon02/27/24 at 2100, UntilDiscontinued, Do not crush or break., On hold since Mon02/29/2024 at 0851 until manually unheld * 0851 (Held by provider - Provider: Chapis Rizvi MD - Reason: Other) * 0900 (Automatically Held - Provider: Chapis Rizvi MD) * 2100 (Automatically Held - Provider: Chapis Rizvi MD) * 0900 (Automatically Held - Provider: Chapis Rizvi MD) * 2100 (Automatically Held - Provider: Chapis Rizvi MD) * 0900 (Automatically Held - Provider: Chapis Rizvi MD) * 2100 (Automatically Held - Provider: Chapis Rizvi MD) [...] since Mon02/29/2024 at 1050 until manually unheld * 0852 (Given - Provider: Joanna Adame RN) * 1050 (Held by provider - Provider: Maureen Forbes DO - Reason: Other) * 0900 (Automatically Held - Provider: Maureen Forbes DO) * 0900 (Automatically Held - Provider: Maureen Forbes DO) ferrous sulfate (IRON 325) tablet 325 mg 325 mg, Oral, 2 TIMES DAILY WITH MEALS, First dose on Mon02/29/24 at 1730, Until Discontinued * 1749 (Given - Provider: Joanna Adame RN) * 0755 (Given - Provider: Joanna Adame RN) * 1616 (Given - Provider: Joanna Adame RN) * 0759 (Given - Provider: Daphne Alonzo RN) * 1700 (Due) folic acid injection 1 mg 1 mg, IntraVENous, DAILY, First dose (after last modification) on Mon02/29/24 at 0900, Until Discontinued * 1021 (Given - Provider: Joanna Adame RN) * 1056 (Given - Provider: Joanna Adame RN) * 0900 (Due) magnesium sulfate 1000 mg in dextrose 5% 100 mL IVPB (COMPLETED) 1,000 mg, IntraVENous, at 100 mL/hr, Administer over 1 Hours, ONCE, On Mon02/29/24 at 1500, For 1 dose, Recommended infusion rate not to exceed 1,000 mg (milligrams) per hour. * 1525 (New Bag - Provider: Joanna Adame RN) * 1625 (Rate/Dose Verify - Provider: Joanna Adame RN) * 1625 (Stopped - Provider: Joanna Adame RN) magnesium sulfate 1000 mg in dextrose 5% 100 mL IVPB (COMPLETED) 1,000 mg, IntraVENous, at 100 mL/hr, Administer over 1 Hours, ONCE, On Mon03/01/24 at 1200, For 1 dose, Recommended infusion rate not to exceed 1,000 mg (milligrams) per hour. * 1258 (New Bag - Provider: Joanna Adame RN) * 1358 (Rate/Dose Change - Provider: Joanna Adame RN) * 1358 (Stopped - Provider: Joanna Adame RN) nicotine [...] to facility policy for handling and disposal. * 0852 (Patch Removed - Provider: Joanna Adame RN) * 0853 (Patch Applied - Provider: Joanna Adame RN) * 0756 (Patch Removed - Provider: Joanna Adame RN) * 0757 (Not Given - Provider: Joanna Adame RN - Reason: Patient/family refused) * 0759 (Not Given - Provider: Daphne Alonzo RN - Reason: Patient/family refused) sodium chloride flush 0.9 % injection 10 mL 10 mL, IntraVENous, EVERY 12 HOURS SCHEDULED (2 times per day), First dose on Mon02/27/24 at 0900,Until Discontinued * 0852 (Given - Provider: Joanna Adame RN) * 195 (Given - Provider: Sol Landis, RN) * 075 (Given - Provider: Joanna Adame RN) * 2005 (Given - Provider: Rebecca Humphreys, RN) * 075 (Given - Provider: Daphne Alonzo RN) * 2100 (Due) Medication Order//06/2023 0.9 % sodium chloride infusion IntraVENous, at 5-250 mL/hr, PRN, if patient receiving piggyback infusions and maintenance fluids are not ordered, Starting on Mon02/27/24 at 0032, For piggyback infusion, administer at same rate aspiggyback for a total of 25 mL. Enter [...] Administer if oral route cannot be used. * 1405 (See Alternative - Provider: Joanna Adame RN) * 2007 (See Alternative - Provider: Sol Landis, MARQUISE) * 09 (See Alternative - Provider: Joanna Adame RN) * 1616 (See Alternative - Provider: Joanna Adame RN) * 2215 (See Alternative - Provider: Rebecca Humphreys, RN) acetaminophen (TYLENOL) tablet 650 mg(Linked Group 1) 650 mg, Oral, EVERY 6 HOURS PRN, Starting on Mon02/27/24 at 0032, Until Discontinued, Pain Mild (1-3), Fever, For temp greater than 100.4 F (38 C), Maximum dose of acetaminophen is 4000 mg from all sources in 24 hours. * 1405 (Given - Provider: Joanna Adame RN) * 2007 (Given - Provider: Sol Landis RN) * 0930 (Given - Provider: Joanna Adame RN) * 1616 (Given - Provider: Joanna Adame RN) * 2215 (Given - Provider: Rebecca Humphreys, RN) calcium gluconate 2,000 mg in sodium chloride 100 mL 2,000 mg, IntraVENous, at 50 mL/hr, Administer over 120 Minutes, PRN, See admin instructions, Starting on Caro 02/29/24 at 1101, Serum IONIZED Ca Replacement Action 0.80 -1.00 mmol/L Calcium [id number] IV over 2 hours 0.79 mmol/L or less Calcium Gluconate 2g IV x 2 doses (each 2g over 2 hours) [4gtotal dose] AND notify provider Central line is preferred Infuse every 1 gram over 1 hour Repeat IONIZED calcium level in the AM the following day Protocol not for use in patients with a CrCl <30 mL/min fentaNYL (SUBLIMAZE) injection (COMPLETED) PRN, Starting on Mon03/01/24 at 0857, Until Mon03/01/24 at 0900, Intra-op * 0857 (Given - Provider: Diana Reddy RN) * 0900 (Given - Provider: Diana Reddy, MARQUISE) ketorolac (TORADOL) injection 30 mg 30 mg, IntraVENous, EVERY 6 HOURS PRN, Starting on Mon02/28/24 at 0909, Until Mon03/04/24 at 0908,Pain Mild (1-3), Pain Moderate (4-6), Do not administer for more than 5 days. * 0319 (Given - Provider: Neris Duff RN) * 1024 (Given - Provider: Joanna Adame RN) * 1633 (Given - Provider: Joanna Adame RN) * 0004 (Given - Provider: Sol Landis, RN) * 0630 (Given - Provider: Nikki Morris, MARQUISE) * 1301 (Given - Provider: Joanna Adame RN) * 2005 (Given - Provider: Rebecca Humphreys, RN) * 0210 (Canceled Entry - Provider: Rebecca Humphreys, RN) * 0256 (Given - Provider: Rebecca Humphreys, RN) * 1116 (Given - Provider: Daphne Alonzo RN) LORazepam (ATIVAN) injection 4 mg 4 mg, IntraVENous, EVERY 5 MIN PRN, Starting on Mon02/27/24 at 0032, Until Discontinued, Seizures,May repeat dose (4 mg) X 1 for seizures lasting more than 5 minutes. Notify provider if administered for seizure. magnesium sulfate 2000 mg in 50 mL IVPB premix 2,000 mg, IntraVENous, at 25 mL/hr, Administer over 2 Hours, PRN, Other, Magnesium Replacement, Starting on Mon02/27/24 at 0032, Mag Lab Replacement Action 1.4-1.6 mg/dL 2,000 mg Total Dose Given as1,000 mg IVPB x 2 doses or 2,000 [...] CrCl less than 30ml/min, On hold since [facility] 02/29/2024 at 1438 until manually unheld * 1438 (Held by provider - Provider: Chapis Rizvi MD - Reason: Other) midazolam (VERSED) injection (COMPLETED) PRN, Starting on Mon03/01/24 at 0857, Until Mon03/01/24 at 0900, Intra-op * 0857 (Given - Provider: Diana Reddy, MARQUISE) * 0900 (Given - Provider: Diana Reddy, MARQUISE) ondansetron (ZOFRAN) injection 4 mg(Linked Group 2) 4 mg, IntraVENous, EVERY 6 HOURS PRN, Starting on Mon02/27/24 at 0032, Until Discontinued, Nausea,Vomiting, Administer if oral route cannot be used. * 0614 (See Alternative - Provider: Asim Mitchell RN) * 1753 (See Alternative - Provider: Joanna Adame RN) * 0630 (See Alternative - Provider: Nikki Morris RN) * 1616 (See Alternative - Provider: Joanna Adame, MARQUISE) * 0018 (See Alternative - Provider: Rebecca Humphreys RN) * 0351 (See Alternative - Provider: Rebecca Humphreys RN) * 1116 (See Alternative - Provider: Daphne Alonzo RN) ondansetron (ZOFRAN-ODT) disintegrating tablet 4 mg(Linked Group 2) 4 mg, Oral, EVERY 8 HOURS PRN, Starting on Mon02/27/24 at 0032, Until Discontinued, Nausea, Vomiting * 0614 (Given - Provider: Asim Mitchell RN) * 1753 (Given - Provider: Joanna Adame, RN) * 0630 (Given - Provider: Nikki Morris RN) * 1616 (Given - Provider: Joanna Adame RN) * 0018 (Not Given - Provider: Rebecca Humphreys RN - Reason: Patient/family refused) * 0351 (Given - Provider: Rebecca Humphreys RN) * 1116 (Given - Provider: Daphne Alonzo, MARQUISE) phenol 1.4 % mouth spray Mouth/Throat, 4 TIMES DAILY PRN, Starting on 03/02/24 at 0930, Until Discontinued, Pain * 1116 (Given - Provider: Daphne Alonzo, MARQUISE) [...] mL/min. Do not chew or crush. Dissolve flavoredtablets completely in 3 to 4 ounces of [...] Mon02/27/24 at 0032, Until Discontinued, Potassium Replacement, Maygive alternative linked oral order (ordered as effervescent, packet, or liquid solution) if patientunable to tolerate tablet. K Lab Replacement Action [...] Line Care, After every IV line use Order Group 1: acetaminophen (TYLENOL) tablet 650 [...] Starting on Mon02/27/24 at 0032, Until Discontinued, Nausea,Vomiting, Administer if oral route cannot be used. Group 3: potassium chloride (KLOR-CON M) extended release tablet 40 mEqJump to med 40 mEq, Oral, PRN, Starting on Mon02/27/24 at 0032, Until Discontinued, Potassium Replacement, Maygive alternative linked oral order (ordered as effervescent, packet, or liquid solution) if patientunable to tolerate tablet. K Lab Replacement Action [...] mL/min. Do not chew or crush. Dissolve flavoredtablets completely in 3 to 4 ounces of [...] BE BASED ON THE PRIMARY CLINICAL RECORDS. [employer] provides no warranty or guarantee of the accuracy or completeness of information in this document.
[2025-02-18 12:09] LABS: Hematocrit 48.5 % (42.0-54.0); Hemoglobin 16.9 g/dL (14.0-18.0); Mean Corpuscular HGB Conc 34.8 g/dL (29.9-35.2); Mean Corpuscular Hemoglobin 32.1 pg (25.9-34.0); Mean Corpuscular Volume 92.0 fL (80.0-94.0); Platelet Count 244 10^3/uL (150-450); Red Blood Count 5.27 10^6/uL (4.70-6.10); White Blood Count 9.2 10^3/uL (4.0-11.0)
[2025-02-18 12:12] LABS: Glucose Urine UA NEGATIVE (NEGATIVE)
[2025-02-18 12:42] LABS: Albumin Level 4.1 g/dL (3.4-5.0); Anion Gap 11.3; Blood Urea Nitrogen 9.0 mg/dL (7.0-18.0); Calcium 8.9 mg/dL (8.5-10.1); Carbon Dioxide 28.7 mmol/L (21.0-32.0); Chloride 98 mmol/L (98-107); Estimated GFR (African America >60 (>=60 mL/min/1.73m^2); Estimated GFR (Non-African Ame 58 (>=60 mL/min/1.73m^2); Glucose 105 mg/dL (74-106); Magnesium 2.3 mg/dL (1.8-2.4); Potassium 3.0 mmol/L (3.5-5.1); Sodium 135 mmol/L (136-145); Uric Acid 5.7 mg/dL (3.5-7.2)
[2025-02-19 16:23] LABS: Microalbum Creatinine Ratio Ur 8.0 mg/g (0.0-29.9); Protein Creatinine Ratio Urine 0.07; Total Protein Urine Random 16.6 mg/dL (<=11.9)
== END 2025-02-18 11:48 | disposition home or self-care (01) ==
LOC: LAB 11:48
PROVIDERS: PCP Family Medicine; Visit Provider Internal Medicine Nephrology
DX: R56.9 Unspecified convulsions (principal); E87.6 Hypokalemia; R79.89 Other specified abnormal findings of blood chemistry
CPT/HCPCS: 36415; 80069; 81003; 82043; 82306; 82570; 83735; 83970; 84156; 84550; 85027

== ENCOUNTER 2025-04-11 10:30 | Emergency (ER) | payer OTHER, SELFPAY ==
[2025-04-11 10:35] VITALS: PULSE 79; TEMP 37.2; O2SAT 98; BMI 31.3
--- NOTE | 2025-04-11 10:42 | ECG_ITS ---
The [facility] Test Date: 2025-04-11 Pat Name: OLEGARIO DONALD Department: Room: - Gender: Male Academic Coach: : 1990 Requested By: 1030 Order Number: [id number] Reading MD: MAX BARBA M.D. Measurements Intervals [place] Rate: 72 P: 58 MA: 144 QRS: 90 QRSD: 102 T: 26 QT: 398 QTc: 422 Interpretive Statements 1100 Sinus rhythm 1102 Sinus arrhythmia 2440 Incomplete right bundle branch block 4068 Nonspecific Twave abnormality 9130 borderline ECG Compared to ECG 05/03/2024 18:52:35 No significant changes Electronically Signed On 04-11-2025 17:24:08 EST by MAX BARBA M.D.
--- NOTE | 2025-04-11 10:42 | CT_ITS ---
The [address] [address] Patient Name: OLEGARIO DONALD MRN: [id number] date: 1990 Sex: M Assigned Patient Location: ER Current Patient Location: .MAIN Accession/Order Number: [id number] Exam Date: 04/11/2025 11:05 Report Date: 04/11/2025 11:37 At the request of: ROXI ESTES MD Procedure: CT cervical spine wo con CLINICAL DATA: Syncope left knee with fall. Patient hit the back of head. CT BRAIN WITHOUT CONTRAST: COMPARISON: CT 02/25/2024 and MRI 03/20/2024 TECHNIQUE: Contiguous axial unenhanced images were obtained through the brain. This CT exam was performed using one or more following dose reduction techniques: Automated exposure control, adjustment of the mA and/or kV according to patient size, or use of iterative reconstruction technique. FINDINGS: The ventricles are within normal limits for size and position. There are no areas of abnormal attenuation. There is no hemorrhage, mass effect or extra-axial collections. The calvarium is intact. The imaged paranasal sinuses and mastoid air cells are clear. CT/CT cervical spine wo con IMPRESSION: NO ACUTE INTRACRANIAL TRAUMA. CT CERVICAL SPINE WITHOUT CONTRAST WITH 3D RECONSTRUCTIONS: COMPARISON: Plain films 11/04/2024 TECHNIQUE: Spiral axial unenhanced images were obtained through the cervical spine. Sagittal, coronal and 3D volume-rendered reconstructions were also reviewed. This CT exam was performed using one or more following dose reduction techniques: Automated exposure control, adjustment of the mA and/or kV according to patient size, or use of iterative reconstruction technique. FINDINGS: There is an incomplete posterior C1 arch. Alignment is maintained in the sagittal plane. No fractures are identified. The disc spaces are uniform. The atlantoaxial relationship is maintained. No prevertebral soft tissue swelling is seen. There are some shotty cervical lymph nodes. The upper imaged lungs show no contributory findings. IMPRESSION: NO ACUTE BONY INJURY. Impression dictated by: Liz García M.D. 04/11/2025 11:37 AM Dictation Location: [place] [address] Electronically authenticated by: [id number] Y Date: 04/11/2025 11:37
--- NOTE | 2025-04-11 10:42 | XR_ITS ---
The [place] [id number] Patient Name: OLEGARIO DONALD MRN: [id number] date: 1990 Sex: M Assigned Patient Location: ER Current Patient Location: ED.MAIN Accession/Order Number: [id number] Exam Date: 04/11/2025 11:10 Report Date: 04/11/2025 11:39 At the request of: ROXI ESTES MD Procedure: XR lumbar spine 2-3V LUMBAR SPINE - 2 views COMPARISON: CT 02/25/2024 CLINICAL DATA: Patient fell onto back and has pain. AP and lateral views were obtained. A transitional vertebra is suspected. There are no acute compression fractures or displacement. The disc spaces are maintained. The SI joints are intact and there is minor sclerosis. No paraspinal soft tissue abnormalities are identified. XR/XR lumbar spine 2-3V IMPRESSION: NO ACUTE BONY INJURY. Impression dictated by: Liz García M.D. 04/11/2025 11:39 AM Dictation Location: [place] [address] Electronically authenticated by: [id number] Y Date: 04/11/2025 11:39
--- NOTE | 2025-04-11 10:42 | CT_ITS ---
The [address] [address] Patient Name: OLEGARIO DONALD MRN: [id number] date: 1990 Sex: M Assigned Patient Location: ER Current Patient Location: .MAIN Accession/Order Number: [id number] Exam Date: 04/11/2025 11:05 Report Date: 04/11/2025 11:37 At the request of: ROXI ESTES MD Procedure: CT cervical spine wo con CLINICAL DATA: Syncope left knee with fall. Patient hit the back of head. CT BRAIN WITHOUT CONTRAST: COMPARISON: CT 02/25/2024 and MRI 03/20/2024 TECHNIQUE: Contiguous axial unenhanced images were obtained through the brain. This CT exam was performed using one or more following dose reduction techniques: Automated exposure control, adjustment of the mA and/or kV according to patient size, or use of iterative reconstruction technique. FINDINGS: The ventricles are within normal limits for size and position. There are no areas of abnormal attenuation. There is no hemorrhage, mass effect or extra-axial collections. The calvarium is intact. The imaged paranasal sinuses and mastoid air cells are clear. CT/CT head/brain wo con IMPRESSION: NO ACUTE INTRACRANIAL TRAUMA. CT CERVICAL SPINE WITHOUT CONTRAST WITH 3D RECONSTRUCTIONS: COMPARISON: Plain films 11/04/2024 TECHNIQUE: Spiral axial unenhanced images were obtained through the cervical spine. Sagittal, coronal and 3D volume-rendered reconstructions were also reviewed. This CT exam was performed using one or more following dose reduction techniques: Automated exposure control, adjustment of the mA and/or kV according to patient size, or use of iterative reconstruction technique. FINDINGS: There is an incomplete posterior C1 arch. Alignment is maintained in the sagittal plane. No fractures are identified. The disc spaces are uniform. The atlantoaxial relationship is maintained. No prevertebral soft tissue swelling is seen. There are some shotty cervical lymph nodes. The upper imaged lungs show no contributory findings. IMPRESSION: NO ACUTE BONY INJURY. Impression dictated by: Liz García M.D. 04/11/2025 11:37 AM Dictation Location: [place] [address] Electronically authenticated by: [id number] Y Date: 04/11/2025 11:37
[2025-04-11 10:44] VITALS: BP 181/104
[2025-04-11] MEDS: 0.9 % SODIUM CHLORIDE 1,000 ML 1000 ML IV (10:51)
[2025-04-11 10:56] LABS: Hematocrit 48.9 % (42.0-54.0); Hemoglobin 16.9 g/dL (14.0-18.0); Immature Granulocytes Abs Auto 0.03 10^3/uL (0.00-0.03); Immature Granulocytes Pct Auto 0.4 % (0.0-0.5); Lymphocytes Absolute Auto 1.5 10^3/uL (1.2-3.8); Mean Corpuscular HGB Conc 34.6 g/dL (29.9-35.2); Mean Corpuscular Hemoglobin 31.6 pg (25.9-34.0); Mean Corpuscular Volume 91.6 fL (80.0-94.0); Platelet Count 231 10^3/uL (150-450); Red Blood Count 5.34 10^6/uL (4.70-6.10); White Blood Count 8.2 10^3/uL (4.0-11.0)
[2025-04-11 11:15] LABS: Anion Gap 12.9; Blood Urea Nitrogen 10.0 mg/dL (7.0-18.0); Calcium 9.3 mg/dL (8.5-10.1); Carbon Dioxide 25.7 mmol/L (21.0-32.0); Chloride 103 mmol/L (98-107); Estimated GFR (African America >60 (>=60 mL/min/1.73m^2); Estimated GFR (Non-African Ame >60 (>=60 mL/min/1.73m^2); Glucose 99 mg/dL (74-106); Potassium 3.6 mmol/L (3.5-5.1); Sodium 138 mmol/L (136-145)
[2025-04-11 11:33] LABS: Glucose Urine UA NEGATIVE (NEGATIVE)
[2025-04-11 11:41] LABS: Cast Seen? NONE SEEN #/LPF (NONE SEEN); Crystals Seen? None Seen #/HPF (None Seen)
[2025-04-11 11:42] LABS: Cannabinoid Screen Urine POSITIVE (NEGATIVE); Methamphetamines Screen Urine NEGATIVE (NEGATIVE); Tricyclic Antidepressant Urine NEGATIVE (NEGATIVE)
--- NOTE | 2025-04-11 13:15 | ED_ITS ---
HPI HPI - General Adult General Chief complaint: Syncope Stated complaint: FAINTED FALL HEAD INJURY Time Seen by Provider: 04/11/25 10:39 Source: patient Mode of arrival: Wheelchair Limitations: no limitations History of Present Illness HPI narrative: 34-year-old male presented to the emergency department for injury to his head. He states that he passes out nearly every day and he was seen 7 neurologists about it and they cannot determine why. He is on medications for it. He states he fell and hit the back of his head and that hurts now and his lower back hurts as well. This occurred yesterday. Related Data Home Medications ?Medication ?Instructions ?Recorded ?Confirmed ferrous sulfate 325 mg (65 mg 325 mg PO DAILY 03/07/24 04/10/24 iron) tablet (FeroSul) lamotrigine 25 mg tablet mg 04/01/24 rizatriptan 10 mg tablet mg 04/01/24 topiramate 50 mg tablet mg 04/01/24 hydrocodone 5 mg-acetaminophen 325 tab 04/10/24 mg tablet ondansetron 4 mg disintegrating mg 04/10/24 tablet prednisone 10 mg tablet mg 04/10/24 Previous Rx's ?Medication ?Instructions ?Recorded ibuprofen 800 mg tablet 800 mg PO Q8H PRN pain #20 t abs 04/11/25 Allergies Allergy/AdvReac Type Severity Reaction Status Date / Time naproxen Allergy Unknown Abdominal Verified 04/14/24 19:15 Pain Opioid HPI Opioid Management Most Recent Opioid Data: Last Pain Scale 7 05/03/24, 20:54 Ur Phencyclidine Scrn, (NEGATIVE) Negative Today, 11:00 Review of Systems ROS Narrative A ten point review of systems is negative except as noted above. PFSH PFSH Social History Smoking status: Current every day smoker Little interest or pleasure in doing things: not at all Feeling down, depressed, or hopeless: not at all Exam Narrative Exam Narrative: Nurses note and vital signs reviewed General:The patient appears well and in no apparent distress.Patient is resting comfortably on cart. Skin:Warm, dry, no pallor noted.There is no rash noted. Head:Normocephalic Eye: Normal conjunctiva, no drainage Ears, Nose, Mouth, and Throat: oral mucosa is moist. Nares patent. Cardiovascular:Regular Rate and Rhythm Respiratory:Patient is in no distress, no accessory muscle use, lungs are clear to auscultation, no wheezing, rales or rhonchi Back: Some tenderness in the lower back without bruise or abrasion. GI: Soft and nontender Musculoskeletal: The patient has no evidence of calf tenderness, no pitting edema, symmetrical pulses noted bilaterally Neurological:A&O x4, normal speech Psychiatric:Cooperative Constitutional Vital Signs, click to edit/add: Last Vital Signs Temp 98.9 F 04/11/25 10:35 Pulse 79 04/11/25 10:35 Resp 18 04/11/25 10:35 BP 181/104 H 04/11/25 10:44 Pulse Ox 98 04/11/25 10:35 O2 Del Method Room Air 04/11/25 10:35 Course Vital Signs Vital signs: Vital Signs Temperature 98.9 F 04/11/25 10:35 Pulse Rate 79 04/11/25 10:35 Respiratory Rate 18 04/11/25 10:35 Pulse Oximetry 98 04/11/25 10:35 Oxygen Delivery Method Room Air 04/11/25 10:35 Temperature 98.9 F 04/11/25 10:35 Pulse Rate 79 04/11/25 10:35 Respiratory Rate 18 04/11/25 10:35 Blood Pressure 181/104 H 04/11/25 10:44 Pulse Oximetry 98 04/11/25 10:35 Oxygen Delivery Method Room Air 04/11/25 10:35 Medical Decision Making MDM Narrative Medical decision making narrative: His workup including CT brain is negative. He is discharged home. He was given IV Toradol here and prescribed ibuprofen. Treatment diagnosis and follow-up were discussed with the patient. Differential Diagnosis Differential Diagnosis: Contusion, fracture, intracranial hemorrhage Lab Data Lab results reviewed: Yes I reviewed the patient's lab results Labs: Lab Results 04/11/25 04/11/25 Range/Units 10:40 11:00 WBC 8.2 (4.0-11.0) 10^3/uL RBC 5.34 (4.70-6.10) 10^6/uL Hgb 16.9 (14.0-18.0) g/dL Hct 48.9 (42.0-54.0) % MCV 91.6 (80.0-94.0) fL MCH 31.6 (25.9-34.0) pg MCHC 34.6 (29.9-35.2) g/dL RDW 12.0 (11.0-15.0) % Plt Count 231 (150-450) 10^3/uL MPV 10.9 (9.5-13.5) fL Neut % (Auto) 72.9 (43.0-75.0) % Lymph % (Auto) 18.6 L (20.5-60.0) % Mccreary % (Auto) 5.6 (1.7-12.0) % Eos % (Auto) 1.6 (0.9-7.0) % Baso % (Auto) 0.9 (0.2-2.0) % Neut # (Auto) 6.0 (1.4-6.5) 10^3/uL Lymph # (Auto) 1.5 (1.2-3.8) 10^3/uL Mccreary # (Auto) 0.5 (0.3-0.8) 10^3/uL Eos # (Auto) 0.1 (0.0-0.7) 10^3/uL Baso # (Auto) 0.1 (0.0-0.1) 10^3/uL Abs Immat Gran (auto) 0.03 (0.00-0.03) 10^3/uL Imm/Tot Granulo (auto) 0.4 (0.0-0.5) % Sodium 138 (136-145) mmol/L Potassium 3.6 (3.5-5.1) mmol/L Chloride 103 (98-107) mmol/L Carbon Dioxide 25.7 (21.0-32.0) mmol/L Anion Gap 12.9 BUN 10.0 (7.0-18.0) mg/dL Creatinine 1.27 (0.70-1.30) mg/dL Est GFR ( Amer) >60 (>=60 mL/min/1.73m^2) Est GFR (Non-Af Amer) >60 (>=60 mL/min/1.73m^2) BUN/Creatinine Ratio 7.9 Glucose 99 (74-106) mg/dL Calcium 9.3 (8.5-10.1) mg/dL Troponin I High Sens 6.8 (4.0-76.1) pg/mL Urine Color Lt. yellow (YELLOW) Urine Clarity Clear (CLEAR) Urine pH 7.0 (5.0-9.0) Ur Specific Mckinnon <=1.005 A (1.005-1.025) Urine Protein Negative (NEG/TRACE) mg/dL Urine Glucose (UA) Negative (NEGATIVE) mg/dL Urine Ketones Negative (NEGATIVE) mg/dL Urine Occult Blood Negative (NEGATIVE) Urine Nitrite Negative (NEGATIVE) Urine Bilirubin Negative (NEGATIVE) Urine Urobilinogen 0.2 (0.2-1.0) EU/dL Ur Leukocyte Esterase Negative (NEGATIVE) Urine RBC None seen (0-2) #/HPF Urine WBC 0-2 A (NONE SEEN) #/HPF Ur Squamous Epith Cells Rare (NONE/RARE) #/LPF Urine Crystals None seen (None Seen) #/HPF Urine Bacteria Trace A (NONE SEEN) #/HPF Urine Casts None seen (NONE SEEN) #/LPF Urine Mucus None seen (NONE SEEN) Urine Opiates Screen Negative (NEGATIVE) Ur Buprenorphine Scrn Negative (NEGATIVE) Ur Oxycodone Screen Negative (NEGATIVE) Urine Methadone Screen Negative (NEGATIVE) Ur Barbiturates Screen Negative (NEGATIVE) U Tricyclic Antidepress Negative (NEGATIVE) Ur Phencyclidine Scrn Negative (NEGATIVE) Ur Amphetamines Screen Negative (NEGATIVE) U Methamphetamines Scrn Negative (NEGATIVE) U Benzodiazepines Scrn Negative (NEGATIVE) Urine Cocaine Screen Negative (NEGATIVE) U Cannabinoids Screen Positive A (NEGATIVE) Imaging Data CT scan - head: Radiologist's impression: ITS Impressions Cervical Spine CT 04/11/25 10:42 IMPRESSION: NO ACUTE INTRACRANIAL TRAUMA. CT CERVICAL SPINE WITHOUT CONTRAST WITH 3D RECONSTRUCTIONS: COMPARISON: Plain films 11/04/2024 TECHNIQUE: Spiral axial unenhanced images were obtained through the cervical spine. Sagittal, coronal and 3D volume-rendered reconstructions were also reviewed. This CT exam was performed using one or more following dose reduction techniques: Automated exposure control, adjustment of the mA and/or kV according to patient size, or use of iterative reconstruction technique. FINDINGS: There is an incomplete posterior C1 arch. Alignment is maintained in the sagittal plane. No fractures are identified. The disc spaces are uniform. The atlantoaxial relationship is maintained. No prevertebral soft tissue swelling is seen. There are some shotty cervical lymph nodes. The upper imaged lungs show no contributory findings. IMPRESSION: NO ACUTE BONY INJURY. Impression dictated by: Liz García M.D. 04/11/2025 11:37 AM Dictation Location: [facility] Electronically authenticated by: [id number] Y Date: 04/11/2025 11:[address] 04/11/25 10:42 IMPRESSION: NO ACUTE INTRACRANIAL TRAUMA. CT CERVICAL SPINE WITHOUT CONTRAST WITH 3D RECONSTRUCTIONS: COMPARISON: Plain films 11/04/2024 TECHNIQUE: Spiral axial unenhanced images were obtained through the cervical spine. Sagittal, coronal and 3D volume-rendered reconstructions were also reviewed. This CT exam was performed using one or more following dose reduction techniques: Automated exposure control, adjustment of the mA and/or kV according to patient size, or use of iterative reconstruction technique. FINDINGS: There is an incomplete posterior C1 arch. Alignment is maintained in the sagittal plane. No fractures are identified. The disc spaces are uniform. The atlantoaxial relationship is maintained. No prevertebral soft tissue swelling is seen. There are some shotty cervical lymph nodes. The upper imaged lungs show no contributory findings. IMPRESSION: NO ACUTE BONY INJURY. Impression dictated by: Liz García M.D. 04/11/2025 11:37 AM Dictation Location: [facility] Electronically authenticated by: [id number] Y Date: 04/11/2025 11:37 Lumbar Spine X-Ray 04/11/25 10:42 IMPRESSION: NO ACUTE BONY INJURY. Impression dictated by: Liz García M.D. 04/11/2025 11:39 AM Dictation Location: [facility] Electronically authenticated by: [id number] Y Date: 04/11/2025 11:39 ECG Data Attestation: I personally reviewed and interpreted this ECG as follows: (EKG on my interpretation shows sinus rhythm with rate of 72 and no acute change) Discharge Plan Discharge Chief Complaint: Syncope Clinical Impression: Contusion of head Syncope Qualifiers: Syncope type: unspecified Qualified Code(s): R55 - Syncope and collapse Patient Disposition: Home, Self-Care Time of Disposition Decision: 13:14 Condition: Good Mode of Transportation: Private Vehicle Prescriptions / Home Meds: New ibuprofen 800 mg tablet 800 mg PO Q8H PRN (Reason: pain) Qty: 20 0RF No Action prednisone 10 mg tablet hydrocodone-acetaminophen 5-325 mg tablet ondansetron 4 mg tablet,disintegrating ferrous sulfate [FeroSul] 325 mg (65 mg iron) tablet 325 mg PO DAILY rizatriptan 10 mg tablet lamotrigine 25 mg tablet topiramate 50 mg tablet Print Language: Arabic Instructions: Syncope (ED), Contusion in Adults (ED) Referrals: Jc Guzman MD [Primary Care Provider, Family Practice] - 1 week
[2025-04-11] MEDS: KETOROLAC TROMETHAMINE 30 MG/ML VIAL IVP (13:19)
== END 2025-04-11 13:25 | disposition home or self-care (01) ==
PROVIDERS: Emergency Provider Emergency Medicine; PCP Family Medicine
DX: S00.93XA Contusion of unspecified part of head, initial encounter (principal); R55 Syncope and collapse; F17.200 Nicotine dependence, unspecified, uncomplicated; W19.XXXA Unspecified fall, initial encounter
CPT/HCPCS: 36415; 70450; 72100; 72125; 76376; 80048; 80307; 81001; 84484; 85025; 93005; 96361; 96374; 96375; 99284; J1885; J2405